=== PATIENT | male | born 1965 | race Caucasian/White ===

== ENCOUNTER 2018-07-14 18:09 | Inpatient (IN) | payer MEDICARE, OTHER ==
[~2018-07-14] VITALS: Ht 182.9 cm; Wt 156.0 kg
[2018-07-14 18:10] VITALS: BP 125/69
[2018-07-14] MEDS ORDERED: KADIAN20 M1 PO (18:16)
[2018-07-14] MEDS ORDERED: ATORVASTATIN CA80 MG ORAL (18:16)
[2018-07-14] MEDS ORDERED: ISOSORBIDE MONO20 MG PO (18:16)
[2018-07-14] MEDS ORDERED: GABAPENTIN600 MG ORAL (18:16)
[2018-07-14] MEDS ORDERED: FUROSEMIDE40 MG ORAL (18:16)
[2018-07-14] MEDS ORDERED: NORVASC5 MG ORAL (18:16)
[2018-07-14] MEDS ORDERED: KEPPRA XR500 MG ORAL (18:16)
--- NOTE | 2018-07-14 18:43 | Emergency Room Report ---
History of Present Illness General Chief Complaint: Edema Source: Patient Present Illness HPI Patient has a history of congestive heart failure coronary artery disease hypertension and morbid obesity. Patient currently stays at a [facility]. Patient states that he's post be taking large amount Lasix but for some reason it was reduced. As a result he's been getting increasingly short of breath over last couple days with significant leg swelling. He denies any dysuria or urinary frequency. Denies any fever chest pain or any other complaints. Symptoms noted to be severe.No other modifying factors. No other associated signs and symptoms. No other complaints were noted. Allergies: Coded Allergies: ASPIRIN (Verified Allergy, Unknown, 07/14/18) KETOROLAC (Verified Allergy, Unknown, 07/14/18) PENICILLINS (Verified Allergy, Unknown, 07/14/18) Patient History Past Medical History: HTN, COPD, seizures Past Surgical History: none Pertinent Family History: none Social History: Denies: smoking, alcohol use, drug use Reviewed Nursing Documentation: PMH: Agreed; PSxH: Agreed Nursing Documentation-PMH Hx Hypertension: Yes Hx COPD: Yes Hx Seizures: Yes Review of Systems All Other Systems: negative except mentioned in HPI Physical Exam Vital Signs Date Time Temp Pulse Resp B/P (MAP) Pulse Ox O2 Delivery O2 Flow Rate FiO2 07/14/18 18:04 98.4 84 18 131/78 97 Room Air Sp02 EP Interpretation: reviewed, normal General Appearance: alert, mild distress, obese Head: atraumatic Eyes: bilateral eye normal inspection ENT: normal ENT inspection, hearing grossly normal, normal voice Neck: normal inspection, full range of motion, supple, no bony tend Respiratory: lungs clear, normal breath sounds, no respiratory distress, no retraction, no wheezing Cardiovascular #1: regular rate, rhythm, edema - Bilateral lower extremity 3+ to knee Gastrointestinal: normal inspection, normal bowel sounds, non tender, soft, no guarding, no hernia Genitourinary: no CVA tenderness Musculoskeletal: normal range of motion, swelling - bilateral lower extremity Neurologic: normal inspection, alert, responsive, speech normal Psychiatric: normal inspection, judgement/insight normal, mood/affect normal Skin: normal inspection, normal color, no rash Medical Decision Making Diagnostic Impression: Primary Impression: CHF (congestive heart failure) Additional Impression: Fluid overload ER Course Patient presents emergency department today complaining of shortness of breath. Differential diagnoses include acute pneumonia, CHF, acute coronary syndrome, pneumothorax, asthma, COPD flare, just to name a few.Given the severity of the patient's presentation I felt this is a highly complex patient. This patient required extensive workup. Patient laboratory workup is consistent with acute CHF. Or dependent edema fluid overload. Patient was given Lasix with some improvement symptoms are given severity of the swelling and fluid overload felt the patient require admission further treatment. Case was discussed with Dr. Ernesto Nicole who is patient's primary care physician. Patient will be admitted to Dr. Ernesto Nicole service further treatment. Labs Test 07/14/18 18:30 07/14/18 18:35 White Blood Count 6.2 K/UL (4.8-10.8) Red Blood Count 4.23 M/UL (4.70-6.10) Hemoglobin 14.0 G/DL (14.2-18.0) Hematocrit 40.9 % (42.0-52.0) Mean Corpuscular Volume 97 FL (80-99) Mean Corpuscular Hemoglobin 33.2 PG (27.0-31.0) Mean Corpuscular Hemoglobin Concent 34.3 G/DL (32.0-36.0) Red Cell Distribution Width 11.2 % (11.6-14.8) Platelet Count 190 K/UL (150-450) Mean Platelet Volume 5.9 FL (6.5-10.1) Neutrophils (%) (Auto) 48.5 % (45.0-75.0) Lymphocytes (%) (Auto) 40.9 % (20.0-45.0) Monocytes (%) (Auto) 7.4 % (1.0-10.0) Eosinophils (%) (Auto) 2.0 % (0.0-3.0) Basophils (%) (Auto) 1.2 % (0.0-2.0) Sodium Level 137 MMOL/L (136-145) Potassium Level 4.9 MMOL/L (3.5-5.1) Chloride Level 107 MMOL/L (98-107) Carbon Dioxide Level 26 MMOL/L (21-32) Anion Gap 4 mmol/L (5-15) Blood Urea Nitrogen 14 mg/dL (7-18) Creatinine 0.9 MG/DL (0.55-1.30) Estimat Glomerular Filtration Rate > 60 mL/min (>60) Glucose Level 76 MG/DL (74-106) Calcium Level 8.3 MG/DL (8.5-10.1) Total Bilirubin 0.5 MG/DL (0.2-1.0) Aspartate Amino Transf (AST/SGOT) 38 U/L (15-37) Alanine Aminotransferase (ALT/SGPT) 24 U/L (12-78) Alkaline Phosphatase 91 U/L (46-116) Total Creatine Kinase 157 U/L (26-308) Creatine Kinase MB 0.6 NG/ML (0.0-3.6) Creatine Kinase MB Relative Index 0.3 Troponin I 0.000 ng/mL (0.000-0.056) Pro-B-Type Natriuretic Peptide 238 pg/mL (0-125) Total Protein 7.1 G/DL (6.4-8.2) Albumin 3.0 G/DL (3.4-5.0) Globulin 4.1 g/dL Albumin/Globulin Ratio 0.7 (1.0-2.7) Urine Color Pale yellow Urine Appearance Clear Urine pH 6 (4.5-8.0) Urine Specific [place] 1.010 (1.005-1.035) Urine Protein Negative (NEGATIVE) Urine Glucose (UA) Negative (NEGATIVE) Urine Ketones Negative (NEGATIVE) Urine Blood Negative (NEGATIVE) Urine Nitrite Negative (NEGATIVE) Urine Bilirubin Negative (NEGATIVE) Urine Urobilinogen Normal MG/DL (0.0-1.0) Urine Leukocyte Esterase Negative (NEGATIVE) EKG Diagnostic Results Rate: normal Rhythm: NSR ST Segments: no acute changes Rhythm Strip Diag. Results EP Interpretation: yes Rate: 69 Rhythm: NSR, no PVC's, no ectopy Chest X-Ray Diagnostic Results Chest X-Ray Diagnostic Results : Chest X-Ray Ordered: Yes # of Views/Limited/Complete: 1 View Indication: Shortness of Breath EP Interpretation: Yes Interpretation: no consolidation, no effusion, no pneumothorax, no acute cardiopulmonary disease Impression: No acute disease Electronically Signed by: Electronically signed by David Pope MD Last Vital Signs Date Time Temp Pulse Resp B/P (MAP) Pulse Ox O2 Delivery O2 Flow Rate FiO2 07/14/18 18:10 98.4 69 7 125/69 100 Room Air Status: improved Disposition: ADMITTED INPATIENT Condition: Serious David Pope MD Jul 14, 2018 18:43
[2018-07-14 18:57] LABS: BASOPHILS % (AUTO) 1.2 % (0.0-2.0); HEMATOCRIT 40.9 % (42.0-52.0); LYMPHOCYTES % (AUTO) 40.9 % (20.0-45.0); MEAN CORPUSCULAR VOLUME 97 FL (80-99); MONOCYTES % (AUTO) 7.4 % (1.0-10.0); NEUTROPHILS % (AUTO) 48.5 % (45.0-75.0); PLATELET COUNT 190 K/UL (150-450); RED BLOOD COUNT 4.23 M/UL (4.70-6.10); RED CELL DISTRIBUTION WIDTH 11.2 % (11.6-14.8); WHITE BLOOD COUNT 6.2 K/UL (4.8-10.8)
[2018-07-14] MEDS ORDERED: Morphine Sulfate 4mg/ml Inj (IV/IM USE ONLY) IVP ONE ×2 (19:00→21:15)
[2018-07-14] MEDS ORDERED: DOCUSATE SODIU100 MG ORAL (19:06)
[2018-07-14] MEDS ORDERED: ACETAMINOPHEN325 M1 ORAL (19:06)
[2018-07-14] MEDS ORDERED: FLEET ENEMA133 ML RECTAL (19:06)
[2018-07-14] MEDS ORDERED: NORCO 10-325 T1 EACH ORAL (19:06)
[2018-07-14] MEDS ORDERED: ISOSORBIDE MONO30 M1 PO (19:06)
[2018-07-14] MEDS ORDERED: MILK OF MA400 MG/51 ORAL (19:06)
[2018-07-14] MEDS ORDERED: CYMBALTA30 MG ORAL (19:06)
[2018-07-14] MEDS ORDERED: SENNA8.6 M2 PO (19:06)
[2018-07-14] MEDS ORDERED: NITROSTAT0.4 M1 SL (19:06)
[2018-07-14] MEDS ORDERED: MORPHINE SULFAT15 M1 PO (19:06)
[2018-07-14] MEDS ORDERED: DULCOLAX10 MG RC (19:06)
[2018-07-14 19:13] LABS: APPEARANCE,URINE CLEAR; BILIRUBIN, URINE NEGATIVE (NEGATIVE); COLOR,URINE PALE YELLOW; GLUCOSE, URINE (UA) NEGATIVE (NEGATIVE); KETONES,URINE NEGATIVE (NEGATIVE); LEUKOCYTE ESTERASE ,URINE NEGATIVE (NEGATIVE); NITRITE,URINE NEGATIVE (NEGATIVE); PH,URINE 6 (4.5-8.0); PROTEIN,URINE NEGATIVE (NEGATIVE); UROBILINOGEN,URINE NORMAL MG/DL (0.0-1.0)
[2018-07-14 19:16] LABS: ANION GAP 4 mmol/L (5-15); BLOOD UREA NITROGEN 14 mg/dL (7-18); CALCIUM 8.3 MG/DL (8.5-10.1); CARBON DIOXIDE 26 MMOL/L (21-32); CHLORIDE 107 MMOL/L (98-107); CREATININE 0.9 MG/DL (0.55-1.30); POTASSIUM 4.9 MMOL/L (3.5-5.1); SODIUM 137 MMOL/L (136-145)
[2018-07-14 19:32] LABS: ALANINE AMINOTRANSFERASE 24 U/L (12-78); ALBUMIN/GLOBULIN RATIO 0.7 (1.0-2.7); ALKALINE PHOSPHATASE 91 U/L (46-116); ASPARTATE AMINO TRANSFERASE 38 U/L (15-37); BILIRUBIN,TOTAL 0.5 MG/DL (0.2-1.0); CKMB 0.6 NG/ML (0.0-3.6); CREATINE KINASE 157 U/L (26-308)
[2018-07-14] MEDS ORDERED: Albuterol/Ipratropium 3ml neb HHN PRN (19:45)
[2018-07-14] MEDS ORDERED: Miralax 17gm pkt ORAL PRN (19:45)
[2018-07-14] MEDS ORDERED: Potassium Chloride 40 MEQ in Sodium Chloride 500ML 550 ML IVPB ONE (19:45)
[2018-07-14 21:50] VITALS: BP 139/78
[2018-07-14] MEDS ORDERED: Heparin 5000 units/ml inj SUBQ SCH (22:00)
[2018-07-14 22:38] VITALS: BP 122/75
[2018-07-15 00:05] VITALS: BP 128/77
[2018-07-15 04:00] VITALS: BP 150/87
[2018-07-15 08:00] VITALS: BP 144/100
--- NOTE | 2018-07-15 08:01 | Cardiology Progress Note ---
Assessment/Plan Assessment/Plan The patient is seen and examined, full consult note will be dictated. Objective Last 24 Hour Vital Signs Date Time Temp Pulse Resp B/P (MAP) Pulse Ox O2 Delivery O2 Flow Rate FiO2 07/15/18 04:00 97.2 77 18 150/87 (108) 96 07/15/18 02:30 Room Air 07/15/18 00:05 98.2 73 17 128/77 (94) 95 07/14/18 23:11 Room Air 07/14/18 22:38 98.3 69 18 122/75 (91) 95 07/14/18 22:10 97.9 69 18 139/78 100 Room Air 72 72 07/14/18 21:50 97.9 72 18 139/78 100 Room Air 72 07/14/18 18:10 98.4 69 7 125/69 100 Room Air 07/14/18 18:10 69 7 Room Air 07/14/18 18:04 98.4 84 18 131/78 97 Room Air Intake and Output 07/14/18 07/15/18 19:00 07:00 Intake Total 640 ml Output Total 2050 ml Balance -1410 ml Intake Oral 640 ml Output Urine Total 2050 ml # Voids 12 Laboratory Tests Test 07/14/18 18:30 07/14/18 18:35 White Blood Count 6.2 K/UL (4.8-10.8) Red Blood Count 4.23 M/UL (4.70-6.10) L Hemoglobin 14.0 G/DL (14.2-18.0) L Hematocrit 40.9 % (42.0-52.0) L Mean Corpuscular Volume 97 FL (80-99) Mean Corpuscular Hemoglobin 33.2 PG (27.0-31.0) H Mean Corpuscular Hemoglobin Concent 34.3 G/DL (32.0-36.0) Red Cell Distribution Width 11.2 % (11.6-14.8) L Platelet Count 190 K/UL (150-450) Mean Platelet Volume 5.9 FL (6.5-10.1) L Neutrophils (%) (Auto) 48.5 % (45.0-75.0) Lymphocytes (%) (Auto) 40.9 % (20.0-45.0) Monocytes (%) (Auto) 7.4 % (1.0-10.0) Eosinophils (%) (Auto) 2.0 % (0.0-3.0) Basophils (%) (Auto) 1.2 % (0.0-2.0) Sodium Level 137 MMOL/L (136-145) Potassium Level 4.9 MMOL/L (3.5-5.1) Chloride Level 107 MMOL/L (98-107) Carbon Dioxide Level 26 MMOL/L (21-32) Anion Gap 4 mmol/L (5-15) L Blood Urea Nitrogen 14 mg/dL (7-18) Creatinine 0.9 MG/DL (0.55-1.30) Estimat Glomerular Filtration Rate > 60 mL/min (>60) Glucose Level 76 MG/DL (74-106) Calcium Level 8.3 MG/DL (8.5-10.1) L Total Bilirubin 0.5 MG/DL (0.2-1.0) Aspartate Amino Transf (AST/SGOT) 38 U/L (15-37) H Alanine Aminotransferase (ALT/SGPT) 24 U/L (12-78) Alkaline Phosphatase 91 U/L (46-116) Total Creatine Kinase 157 U/L (26-308) Creatine Kinase MB 0.6 NG/ML (0.0-3.6) Creatine Kinase MB Relative Index 0.3 Troponin I 0.000 ng/mL (0.000-0.056) Pro-B-Type Natriuretic Peptide 238 pg/mL (0-125) H Total Protein 7.1 G/DL (6.4-8.2) Albumin 3.0 G/DL (3.4-5.0) L Globulin 4.1 g/dL Albumin/Globulin Ratio 0.7 (1.0-2.7) L Urine Color Pale yellow Urine Appearance Clear Urine pH 6 (4.5-8.0) Urine Specific [place] 1.010 (1.005-1.035) Urine Protein Negative (NEGATIVE) Urine Glucose (UA) Negative (NEGATIVE) Urine Ketones Negative (NEGATIVE) Urine Blood Negative (NEGATIVE) Urine Nitrite Negative (NEGATIVE) Urine Bilirubin Negative (NEGATIVE) Urine Urobilinogen Normal MG/DL (0.0-1.0) Urine Leukocyte Esterase Negative (NEGATIVE) Carlos Martins MD Jul 15, 2018 08:01
[2018-07-15] MEDS: Morphine Sulfate 2mg/ml Inj IVP PRN ×4 (08:32→22:10)
[2018-07-15] MEDS: DULoxetine 30mg cap ORAL SCH (08:33)
[2018-07-15] MEDS: Heparin 5000 units/ml inj SUBQ SCH ×2 (08:35→21:00)
--- NOTE | 2018-07-15 08:37 | Diagnostic Imaging Report ---
Indication: Cough Technique: One view of the chest Comparison: none Findings: Lungs and pleural spaces are clear. Heart size is normal. Impression: No acute process This agrees with the preliminary interpretation provided by the emergency room physician
[2018-07-15 09:10] LABS: BASOPHILS % (AUTO) 0.8 % (0.0-2.0); EOSINOPHILS % (AUTO) 1.7 % (0.0-3.0); HEMATOCRIT 47.5 % (42.0-52.0); LYMPHOCYTES % (AUTO) 31.5 % (20.0-45.0); MEAN CORPUSCULAR VOLUME 97 FL (80-99); MONOCYTES % (AUTO) 5.4 % (1.0-10.0); NEUTROPHILS % (AUTO) 60.5 % (45.0-75.0); PLATELET COUNT 200 K/UL (150-450); RED BLOOD COUNT 4.89 M/UL (4.70-6.10); RED CELL DISTRIBUTION WIDTH 11.4 % (11.6-14.8); WHITE BLOOD COUNT 5.9 K/UL (4.8-10.8)
[2018-07-15 10:01] LABS: ALBUMIN 3.4 G/DL (3.4-5.0); ANION GAP 5 mmol/L (5-15); BLOOD UREA NITROGEN 16 mg/dL (7-18); CALCIUM 8.9 MG/DL (8.5-10.1); CARBON DIOXIDE 29 MMOL/L (21-32); CHLORIDE 105 MMOL/L (98-107); PHOSPHORUS 3.5 MG/DL (2.5-4.9); POTASSIUM 4.1 MMOL/L (3.5-5.1); SODIUM 139 MMOL/L (136-145)
[2018-07-15 11:55] VITALS: BP 139/85
--- NOTE | 2018-07-15 13:21 | Consultation ---
History of Present Illness General Date patient seen: Jul 15, 2018 Chief Complaint: Edema Present Illness HPI 52 year old male with a history of congestive heart failure, coronary artery disease, hypertension, COPD and morbid obesity presented to ER with CC of increasingly short of breath over last couple days with significant leg swelling. He denies any dysuria or urinary frequency. Denies any fever chest pain or any other complaints. Symptoms noted to be severe.No other modifying factors. No other associated signs and symptoms. His CXR didn't show any floride edema. He is admitted for right heart failure and possible bronchitis Allergies: Coded Allergies: ASPIRIN (Verified Allergy, Unknown, 07/14/18) KETOROLAC (Verified Allergy, Unknown, 07/14/18) PENICILLINS (Verified Allergy, Unknown, 07/14/18) Medication History Scheduled Amlodipine Besylate (Norvasc), 5 MG ORAL DAILY, (Reported) Atorvastatin Calcium* (Lipitor*), 80 MG ORAL BEDTIME, (Reported) Docusate Sodium* (Docusate Sodium*), 100 MG ORAL DAILY, (Reported) Duloxetine Hcl* (Cymbalta*), 30 MG ORAL DAILY, (Reported) Furosemide* (Lasix*), 40 MG ORAL TWICE A DAY, (Reported) Gabapentin* (Gabapentin*), 600 MG ORAL THREE TIMES A DAY, (Reported) Isosorbide Mononitrate (Isosorbide Mononitrate Er), 30 MG PO DAILY, (Reported) Levetiracetam (Keppra Xr), 500 MG ORAL BID, (Reported) Morphine Sulfate (Morphine Sulfate Er), 15 MG PO DAILY, (Reported) Sennosides (Senna), 17.2 MG PO BEDTIME, (Reported) Scheduled PRN Acetaminophen* (Acetaminophen 325MG Tablet*), 650 MG ORAL Q4H PRN for Mild Pain (Pain Scale 1-3), (Reported) Acetaminophen* (Acetaminophen 325MG Tablet*), 650 MG ORAL Q4H PRN for Mild Pain/ Temp > 100.5, (Reported) Bisacodyl (Dulcolax), 10 MG RC DAILY PRN for IF MOM INEFFECTIVE, (Reported) Hydrocodone Bit/Acetaminophen 10-325* ([place] 10-325*), 1 TAB ORAL Q4H PRN for Moderate Pain (Pain Scale 4-6), (Reported) Magnesium Hydroxide* (Milk Of Magnesia*), 30 ML ORAL BEDTIME PRN for IF DOCUSATE INEFFECTIVE, (Reported) Na Phos,M-B/Na Phos,Di-Ba* (Fleet Enema*), 133 ML RECTAL QOD PRN for IF DULCOLAX INEFFECTIVE, (Reported) Nitroglycerin (Nitrostat), 0.4 MG SL Q5M X3 DOSES PRN for CHEST PAIN, (Reported) Discontinued Medications Isosorbide Mononitrate (Isosorbide Mononitrate), 30 MG PO DAILY, (Reported) Discontinued Reason: Prescription changed Morphine Sulfate (Pamela), 15 MG PO DAILY, (Reported) Discontinued Reason: Prescription changed Patient History Healthcare decision maker Resuscitation status Full Code Advanced Directive on File Yes Past Medical/Surgical History Past Medical/Surgical History: (1) COPD (chronic obstructive pulmonary disease) Review of Systems Constitutional: Reports: no symptoms Physical Exam General Appearance: WD/WN Lines, tubes and drains: peripheral HEENT: normocephalic, atraumatic Neck: non-tender, normal alignment Respiratory/Chest: chest wall non-tender, lungs clear Breasts: no masses Cardiovascular/Chest: normal peripheral pulses, normal rate Abdomen: normal bowel sounds, non tender Last 24 Hour Vital Signs Date Time Temp Pulse Resp B/P (MAP) Pulse Ox O2 Delivery O2 Flow Rate FiO2 07/15/18 11:55 98.2 77 20 139/85 (103) 94 07/15/18 09:02 97.9 07/15/18 09:00 Room Air 07/15/18 08:33 76 144/100 07/15/18 08:00 97.9 76 20 144/100 (115) 95 07/15/18 04:00 97.2 77 18 150/87 (108) 96 07/15/18 02:30 Room Air 07/15/18 00:05 98.2 73 17 128/77 (94) 95 07/14/18 23:11 Room Air 07/14/18 22:38 98.3 69 18 122/75 (91) 95 07/14/18 22:10 97.9 69 18 139/78 100 Room Air 72 72 07/14/18 21:50 97.9 72 18 139/78 100 Room Air 72 07/14/18 18:10 98.4 69 7 125/69 100 Room Air 07/14/18 18:10 69 7 Room Air 07/14/18 18:04 98.4 84 18 131/78 97 Room Air Intake and Output 07/14/18 07/15/18 19:00 07:00 Intake Total 640 ml Output Total 2050 ml Balance -1410 ml Intake Oral 640 ml Output Urine Total 2050 ml # Voids 12 Laboratory Tests Test 07/14/18 18:30 07/14/18 18:35 07/15/18 08:55 White Blood Count 6.2 K/UL (4.8-10.8) 5.9 K/UL (4.8-10.8) Red Blood Count 4.23 M/UL (4.70-6.10) L 4.89 M/UL (4.70-6.10) Hemoglobin 14.0 G/DL (14.2-18.0) L 16.0 G/DL (14.2-18.0) Hematocrit 40.9 % (42.0-52.0) L 47.5 % (42.0-52.0) Mean Corpuscular Volume 97 FL (80-99) 97 FL (80-99) Mean Corpuscular Hemoglobin 33.2 PG (27.0-31.0) H 32.7 PG (27.0-31.0) H Mean Corpuscular Hemoglobin Concent 34.3 G/DL (32.0-36.0) 33.6 G/DL (32.0-36.0) Red Cell Distribution Width 11.2 % (11.6-14.8) L 11.4 % (11.6-14.8) L Platelet Count 190 K/UL (150-450) 200 K/UL (150-450) Mean Platelet Volume 5.9 FL (6.5-10.1) L 5.9 FL (6.5-10.1) L Neutrophils (%) (Auto) 48.5 % (45.0-75.0) 60.5 % (45.0-75.0) Lymphocytes (%) (Auto) 40.9 % (20.0-45.0) 31.5 % (20.0-45.0) Monocytes (%) (Auto) 7.4 % (1.0-10.0) 5.4 % (1.0-10.0) Eosinophils (%) (Auto) 2.0 % (0.0-3.0) 1.7 % (0.0-3.0) Basophils (%) (Auto) 1.2 % (0.0-2.0) 0.8 % (0.0-2.0) Sodium Level 137 MMOL/L (136-145) 139 MMOL/L (136-145) Potassium Level 4.9 MMOL/L (3.5-5.1) 4.1 MMOL/L (3.5-5.1) Chloride Level 107 MMOL/L (98-107) 105 MMOL/L (98-107) Carbon Dioxide Level 26 MMOL/L (21-32) 29 MMOL/L (21-32) Anion Gap 4 mmol/L (5-15) L 5 mmol/L (5-15) Blood Urea Nitrogen 14 mg/dL (7-18) 16 mg/dL (7-18) Creatinine 0.9 MG/DL (0.55-1.30) 1.0 MG/DL (0.55-1.30) Estimat Glomerular Filtration Rate > 60 mL/min (>60) > 60 mL/min (>60) Glucose Level 76 MG/DL (74-106) 91 MG/DL (74-106) Calcium Level 8.3 MG/DL (8.5-10.1) L 8.9 MG/DL (8.5-10.1) Total Bilirubin 0.5 MG/DL (0.2-1.0) Aspartate Amino Transf (AST/SGOT) 38 U/L (15-37) H Alanine Aminotransferase (ALT/SGPT) 24 U/L (12-78) Alkaline Phosphatase 91 U/L (46-116) Total Creatine Kinase 157 U/L (26-308) Creatine Kinase MB 0.6 NG/ML (0.0-3.6) Creatine Kinase MB Relative Index 0.3 Troponin I 0.000 ng/mL (0.000-0.056) 0.000 ng/mL (0.000-0.056) Pro-B-Type Natriuretic Peptide 238 pg/mL (0-125) H Total Protein 7.1 G/DL (6.4-8.2) Albumin 3.0 G/DL (3.4-5.0) L 3.4 G/DL (3.4-5.0) Globulin 4.1 g/dL Albumin/Globulin Ratio 0.7 (1.0-2.7) L Urine Color Pale yellow Urine Appearance Clear Urine pH 6 (4.5-8.0) Urine Specific [place] 1.010 (1.005-1.035) Urine Protein Negative (NEGATIVE) Urine Glucose (UA) Negative (NEGATIVE) Urine Ketones Negative (NEGATIVE) Urine Blood Negative (NEGATIVE) Urine Nitrite Negative (NEGATIVE) Urine Bilirubin Negative (NEGATIVE) Urine Urobilinogen Normal MG/DL (0.0-1.0) Urine Leukocyte Esterase Negative (NEGATIVE) Phosphorus Level 3.5 MG/DL (2.5-4.9) Height (Feet): 6 Height (Inches): 0.00 Weight (Pounds): 344 Medications Current Medications Medications (Trade) Dose Ordered Sig/Luis Route PRN Reason Start Time Stop Time Status Last Admin Dose Admin Acetaminophen (Tylenol) 650 mg Q4H PRN ORAL Fever (temp>100.5F) 07/14/18 19:45 08/13/18 19:44 Albuterol/ Ipratropium (Albuterol/ Ipratropium) 3 ml Q4H PRN HHN Shortness of Breath 07/14/18 19:45 07/19/18 19:44 Albuterol/ Ipratropium (Albuterol/ Ipratropium) 3 ml Q6HRT HHN 07/15/18 19:00 07/20/18 18:59 UNV Amlodipine Besylate (Norvasc) 5 mg DAILY ORAL 07/15/18 09:00 08/14/18 08:59 07/15/18 08:33 Dextrose (Dextrose 50%) 25 ml Q30M PRN IV Hypoglycemia 07/14/18 19:45 08/13/18 19:44 Dextrose (Dextrose 50%) 50 ml Q30MIN PRN IV Hypoglycemia 07/14/18 19:45 08/13/18 19:44 Duloxetine HCl (Cymbalta) 30 mg DAILY ORAL 07/15/18 09:00 08/14/18 08:59 07/15/18 08:33 Furosemide (Lasix) 40 mg EVERY 8 HOURS IV 07/14/18 22:00 08/13/18 21:59 Gabapentin (Neurontin) 600 mg THREE TIMES A DAY ORAL 07/15/18 09:00 08/14/18 08:59 07/15/18 12:54 Heparin Sodium (Porcine) (Heparin 5000 units/ml) 5,000 units EVERY 12 HOURS SUBQ 07/15/18 09:00 08/14/18 08:59 07/15/18 08:35 Morphine Sulfate (Morphine Sulfate) 2 mg Q4H PRN IVP Severe Pain (Pain Scale 7-10) 07/15/18 08:30 07/22/18 08:29 07/15/18 12:58 Ondansetron HCl (Zofran) 4 mg Q6H PRN IVP Nausea & Vomiting 07/14/18 19:45 08/13/18 19:44 Polyethylene Glycol (Miralax) 17 gm DAILYPRN PRN ORAL Constipation 07/14/18 19:45 08/13/18 19:44 Promethazine HCl/ Codeine (Phenergan with Codeine) 5 ml Q4H PRN ORAL For Cough 07/15/18 13:15 08/14/18 13:14 UNV Temazepam (Restoril) 15 mg HSPRN PRN ORAL Insomnia 07/14/18 19:45 07/21/18 19:44 Theophylline (George-Dur) 100 mg EVERY 12 HOURS ORAL 07/15/18 21:00 08/14/18 20:59 UNV Assessment/Plan Problem List: (1) COPD (chronic obstructive pulmonary disease) ICD Codes: J44.9 - Chronic obstructive pulmonary disease, unspecified SNOMED: 13795861 (2) Right heart failure ICD Codes: I50.810 - Right heart failure, unspecified SNOMED: 496238043 (3) Peripheral edema ICD Codes: R60.9 - Edema, unspecified SNOMED: 913932212 (4) CHF (congestive heart failure) ICD Codes: I50.9 - Heart failure, unspecified SNOMED: 76872395 Assessment/Plan respiratory treatment diuretics check sputum titrate fio2 to sat of 92% dvt prophylaxis Bill Dixon MD Jul 15, 2018 13:21
[2018-07-15] MEDS ORDERED: Promethazine/Codeine 5ml UD ORAL PRN (13:30)
[2018-07-15 16:00] VITALS: BP 140/95
--- NOTE | 2018-07-15 17:38 | Cardiology Report ---
APPROVED REPORT EXAM: Two-dimensional and M-mode echocardiogram with Doppler and color Doppler. INDICATION LV FUNCTION M-Mode DIMENSIONS IVSd1.7 (0.7-1.1cm)Left Atrium (MM)3.1 (1.6-4.0cm) LVDd5.3 (3.5-5.6cm)Aortic Root4.6 (2.0-3.7cm) PWd1.1 (0.7-1.1cm)Aortic Cusp Exc.1.9 (1.5-2.0cm) IVSs1.9 cm LVDs3.9 (2.5-4.0cm) PWs1.7 cm Normal left ventricular chamber size. This study precludes analysis of LV wall motion and EF. No evidence of left ventricular hypertrophy . No evidence of pericardial effusion. All other cardiac chamber sizes are within normal limits. Thickened mitral valve leaflets with normal excursion. Mitral annulus and aortic root calcification. Pulmonic valve not well visualized. Normal tricuspid valve structure. IVC dilated at 2.5without physiologic collapse suggestive of increased RA pressure. A color flow and spectral Doppler study was performed and revealed: No aortic insufficiency. Trace mitral regurgitation. Normal left ventricular diastolic function . Mild tricuspid regurgitation. Tricuspid systolic velocities suggests peak right ventricular systolic pressure of 34 mmHg.
--- NOTE | 2018-07-15 17:53 | Cardiology Report ---
APPROVED REPORT EKG Measurement Heart [id number] Normal sinus rhythm Normal ECG
--- NOTE | 2018-07-15 18:30 | History and Physical Report ---
DATE OF ADMISSION: 07/14/2018 CONSULTANTS: 1. Bill Dixon M.D. 2. Carlos Martins M.D. CHIEF COMPLAINT: Shortness of breath, exacerbation of congestive heart failure, and edema. BRIEF HISTORY: This is a 52-year-old male from [facility] presented with the above-mentioned diagnosis and admitted to medical floor for further treatment. Currently, slight short of breath in bed. No complaint. REVIEW OF SYSTEMS: No chest pain. Slight short of breath. No nausea, vomiting, or diarrhea. PAST MEDICAL HISTORY: Includes congestive heart failure, hypertension, chronic obstructive pulmonary disease, and obesity. PAST SURGICAL HISTORY: Knee surgery. MEDICATIONS: Prednisone, George-Dur, albuterol, Phenergan, Norvasc, Cymbalta, Neurontin, morphine sulfate, and Lasix. ALLERGY: Penicillin, aspirin, and ketorolac. SOCIAL HISTORY: Positive smoking. No alcohol. No intravenous drug abuse. FAMILY HISTORY: Noncontributory. PHYSICAL EXAMINATION: GENERAL: Calm in bed, oriented x3, slight short of breath. No complaint. VITAL SIGNS: Temperature is 98 degrees, pulse 77, respirations 20, and blood pressure 139/85. CARDIOVASCULAR: No murmurs. LUNGS: Poor air exchange. ABDOMEN: Bowel sounds positive. Nontender. Nondistended. EXTREMITIES: No cyanosis or clubbing. A 1+ edema. NEUROLOGIC: The patient moves all extremities, slightly weak. LABORATORY DATA: Labs, at this time, show CBC is normal. BMP shows normal troponin 0.00. AST 38. Albumin 3.4. BNP is 238. ASSESSMENT: 1. Shortness of breath. 2. Exacerbation of congestive heart failure. 3. Edema. 4. Obesity. 5. Hypertension. 6. Chronic obstructive pulmonary disease. 7. Chronic pain. PLAN: 1. O2 and pulmonary treatment. 2. Blood pressure and pain control. 3. Dietary followup. 4. Diurese. 5. CBC and BMP in the morning. Ernesto Nicole D.O. DR: LIZBETH JOB#: [id number] CC:
[2018-07-15] MEDS: Albuterol/Ipratropium 3ml neb HHN SCH (19:00)
[2018-07-15] MEDS: Theophylline ER 100mg ORAL SCH (21:00)
[2018-07-15 22:00] VITALS: BP 168/90
[2018-07-16] MEDS: Albuterol/Ipratropium 3ml neb HHN SCH ×5 (01:00→20:02)
[2018-07-16 08:00] VITALS: BP 124/70
[2018-07-16] MEDS: Theophylline ER 100mg ORAL SCH ×2 (08:39→21:00)
[2018-07-16] MEDS: DULoxetine 30mg cap ORAL SCH (08:39)
[2018-07-16] MEDS: Morphine Sulfate 2mg/ml Inj IVP PRN ×3 (08:40→14:14)
[2018-07-16] MEDS: Heparin 5000 units/ml inj SUBQ SCH ×2 (08:41→21:00)
[2018-07-16 12:00] VITALS: BP 126/81
--- NOTE | 2018-07-16 12:08 | Pulmonology Progress Note ---
Assessment/Plan Problems: (1) COPD (chronic obstructive pulmonary disease) (2) Right heart failure (3) Peripheral edema (4) CHF (congestive heart failure) Assessment/Plan improving symptomatic treatment check electrolytes diuretics adjust cardiac meds f/u labs, check sputum continue abx dc planning soon. Subjective ROS Limited/Unobtainable: No Constitutional: Reports: no symptoms HEENT: Repors: no symptoms Respiratory: Reports: no symptoms Allergies: Coded Allergies: ASPIRIN (Verified Allergy, Unknown, 07/14/18) KETOROLAC (Verified Allergy, Unknown, 07/14/18) PENICILLINS (Verified Allergy, Unknown, 07/14/18) Objective Last 24 Hour Vital Signs Date Time Temp Pulse Resp B/P (MAP) Pulse Ox O2 Delivery O2 Flow Rate FiO2 07/16/18 09:10 98.3 07/16/18 08:39 75 124/70 07/16/18 08:25 65 16 97 Room Air 21 07/16/18 08:16 65 16 98 Room Air 21 07/16/18 08:00 98.3 75 22 124/70 (88) 96 07/16/18 02:38 Room Air 21 07/16/18 02:38 Room Air 21 07/15/18 22:00 Room Air 07/15/18 22:00 96 20 168/90 (116) 95 07/15/18 21:00 Room Air 07/15/18 20:20 Room Air 21 07/15/18 20:19 Room Air 21 07/15/18 20:17 Room Air 21 07/15/18 16:00 98.3 73 20 140/95 (110) 94 Intake and Output 07/15/18 07/16/18 19:00 07:00 Intake Total 840 ml 720 ml Balance 840 ml 720 ml Intake Oral 840 ml 720 ml # Voids 4 5 General Appearance: WD/WN HEENT: normocephalic Respiratory/Chest: chest wall non-tender, lungs clear Cardiovascular: normal peripheral pulses, normal rate Abdomen: normal bowel sounds, no organomegaly Genitourinary: normal external genitalia Extremities: no clubbing Neurologic/Psychiatric: [employer] II-XII grossly normal Current Medications Medications (Trade) Dose Ordered Sig/Luis Route PRN Reason Start Time Stop Time Status Last Admin Dose Admin Acetaminophen (Tylenol) 650 mg Q4H PRN ORAL Fever (temp>100.5F) 07/14/18 19:45 08/13/18 19:44 Albuterol/ Ipratropium (Albuterol/ Ipratropium) 3 ml Q4H PRN HHN Shortness of Breath 07/14/18 19:45 07/19/18 19:44 Albuterol/ Ipratropium (Albuterol/ Ipratropium) 3 ml Q6HRT HHN 07/15/18 19:00 07/20/18 18:59 07/16/18 08:16 Amlodipine Besylate (Norvasc) 5 mg DAILY ORAL 07/15/18 09:00 08/14/18 08:59 07/16/18 08:39 Dextrose (Dextrose 50%) 25 ml Q30M PRN IV Hypoglycemia 07/14/18 19:45 08/13/18 19:44 Dextrose (Dextrose 50%) 50 ml Q30MIN PRN IV Hypoglycemia 07/14/18 19:45 08/13/18 19:44 Duloxetine HCl (Cymbalta) 30 mg DAILY ORAL 07/15/18 09:00 08/14/18 08:59 07/16/18 08:39 Furosemide (Lasix) 40 mg EVERY 8 HOURS IV 07/14/18 22:00 08/13/18 21:59 07/15/18 14:47 Gabapentin (Neurontin) 600 mg THREE TIMES A DAY ORAL 07/15/18 09:00 08/14/18 08:59 07/16/18 08:39 Heparin Sodium (Porcine) (Heparin 5000 units/ml) 5,000 units EVERY 12 HOURS SUBQ 07/15/18 09:00 08/14/18 08:59 07/16/18 08:41 Morphine Sulfate (Morphine Sulfate) 2 mg Q4H PRN IVP Severe Pain (Pain Scale 7-10) 07/15/18 08:30 07/22/18 08:29 07/16/18 08:40 Ondansetron HCl (Zofran) 4 mg Q6H PRN IVP Nausea & Vomiting 07/14/18 19:45 08/13/18 19:44 Polyethylene Glycol (Miralax) 17 gm DAILYPRN PRN ORAL Constipation 07/14/18 19:45 08/13/18 19:44 Prednisone (predniSONE) 20 mg DAILY ORAL 07/16/18 09:00 08/15/18 08:59 07/16/18 08:39 Promethazine HCl/ Codeine (Phenergan with Codeine) 5 ml Q4H PRN ORAL For Cough 07/15/18 13:30 08/14/18 13:29 Temazepam (Restoril) 15 mg HSPRN PRN ORAL Insomnia 07/14/18 19:45 07/21/18 19:44 Theophylline (George-Dur) 100 mg EVERY 12 HOURS ORAL 07/15/18 21:00 08/14/18 20:59 07/16/18 08:39 Bill Dixon MD Jul 16, 2018 12:08
--- NOTE | 2018-07-16 14:46 | General Progress Note ---
Assessment/Plan Problem List: (1) Leg pain ICD Codes: M79.606 - Pain in leg, unspecified SNOMED: 21412828 (2) Fluid overload ICD Codes: E87.70 - Fluid overload, unspecified SNOMED: 02481946 (3) COPD (chronic obstructive pulmonary disease) ICD Codes: J44.9 - Chronic obstructive pulmonary disease, unspecified SNOMED: 35418057 (4) CHF (congestive heart failure) ICD Codes: I50.9 - Heart failure, unspecified SNOMED: 87538214 (5) Peripheral edema ICD Codes: R60.9 - Edema, unspecified SNOMED: 137767983 Status: unchanged Assessment/Plan o2 pulm tx pain control diurese pain eval cbc bmp am Subjective Allergies: Coded Allergies: ASPIRIN (Verified Allergy, Unknown, 07/14/18) KETOROLAC (Verified Allergy, Unknown, 07/14/18) PENICILLINS (Verified Allergy, Unknown, 07/14/18) All Systems: reviewed and negative except above Subjective c/o b/l leg pain Objective Last 24 Hour Vital Signs Date Time Temp Pulse Resp B/P (MAP) Pulse Ox O2 Delivery O2 Flow Rate FiO2 07/16/18 13:08 80 16 98 Room Air 21 07/16/18 12:58 80 16 98 Room Air 21 07/16/18 12:00 98.4 61 24 126/81 (96) 93 07/16/18 09:10 98.3 07/16/18 09:00 Room Air 07/16/18 08:39 75 124/70 07/16/18 08:25 65 16 97 Room Air 21 07/16/18 08:16 65 16 98 Room Air 21 07/16/18 08:00 98.3 75 22 124/70 (88) 96 07/16/18 02:38 Room Air 21 07/16/18 02:38 Room Air 21 07/15/18 22:00 Room Air 07/15/18 22:00 96 20 168/90 (116) 95 07/15/18 21:00 Room Air 07/15/18 20:20 Room Air 21 07/15/18 20:19 Room Air 21 07/15/18 20:17 Room Air 21 07/15/18 16:00 98.3 73 20 140/95 (110) 94 Intake and Output 07/15/18 07/16/18 19:00 07:00 Intake Total 840 ml 720 ml Balance 840 ml 720 ml Intake Oral 840 ml 720 ml # Voids 4 5 Height (Feet): 6 Height (Inches): 0.00 Weight (Pounds): 344 General Appearance: lethargic EENT: normal ENT inspection Neck: normal alignment Cardiovascular: normal peripheral pulses, normal rate, regular rhythm Respiratory/Chest: chest wall non-tender, lungs clear, normal breath sounds Abdomen: normal bowel sounds, non tender, soft Extremities: normal inspection Edema: 1+ Arm (L), 1+ Arm (R), 1+ Leg (L), 1+ Leg (R), 1+ Pedal (L), 1+ Pedal ( R), 1+ Generalized Edema: trace edema Neurologic: responsive, motor weakness Skin: normal pigmentation, warm/dry Ernesto Nicole DO Jul 16, 2018 14:46
[2018-07-16 16:00] VITALS: BP 146/88
[2018-07-16] MEDS: Morphine Sulfate 4mg/ml Inj (IV/IM USE ONLY) IVP PRN ×2 (18:24→23:18)
[2018-07-16 20:00] VITALS: BP 140/85
[2018-07-17] VITALS: BP 134/84
[2018-07-17] MEDS: Albuterol/Ipratropium 3ml neb HHN SCH ×4 (01:00→19:25)
[2018-07-17] MEDS: Morphine Sulfate 4mg/ml Inj (IV/IM USE ONLY) IVP PRN ×4 (03:31→20:04)
[2018-07-17 07:48] LABS: BASOPHILS % (AUTO) 0.9 % (0.0-2.0); EOSINOPHILS % (AUTO) 1.5 % (0.0-3.0); HEMATOCRIT 45.4 % (42.0-52.0); HEMOGLOBIN 15.2 G/DL (14.2-18.0); LYMPHOCYTES % (AUTO) 40.9 % (20.0-45.0); MEAN CORPUSCULAR VOLUME 96 FL (80-99); MONOCYTES % (AUTO) 7.3 % (1.0-10.0); NEUTROPHILS % (AUTO) 49.4 % (45.0-75.0); PLATELET COUNT 190 K/UL (150-450); RED BLOOD COUNT 4.72 M/UL (4.70-6.10); RED CELL DISTRIBUTION WIDTH 11.3 % (11.6-14.8); WHITE BLOOD COUNT 6.4 K/UL (4.8-10.8)
[2018-07-17 07:59] LABS: ANION GAP 6 mmol/L (5-15); BLOOD UREA NITROGEN 16 mg/dL (7-18); CALCIUM 8.5 MG/DL (8.5-10.1); CARBON DIOXIDE 28 MMOL/L (21-32); CHLORIDE 105 MMOL/L (98-107); CREATININE 1.1 MG/DL (0.55-1.30); POTASSIUM 4.3 MMOL/L (3.5-5.1); SODIUM 139 MMOL/L (136-145)
[2018-07-17 08:00] VITALS: BP 130/82
[2018-07-17] MEDS: Theophylline ER 100mg ORAL SCH ×2 (08:55→21:11)
[2018-07-17] MEDS: Heparin 5000 units/ml inj SUBQ SCH ×2 (09:02→21:11)
[2018-07-17] MEDS: DULoxetine 30mg cap ORAL SCH (09:02)
--- NOTE | 2018-07-17 09:54 | Consultation ---
History of Present Illness General Date patient seen: Jul 17, 2018 Chief Complaint: Present Illness Allergies: Coded Allergies: ASPIRIN (Verified Allergy, Unknown, 07/14/18) KETOROLAC (Verified Allergy, Unknown, 07/14/18) PENICILLINS (Verified Allergy, Unknown, 07/14/18) Medication History Scheduled Amlodipine Besylate (Norvasc), 5 MG ORAL DAILY, (Reported) Atorvastatin Calcium* (Lipitor*), 80 MG ORAL BEDTIME, (Reported) Docusate Sodium* (Docusate Sodium*), 100 MG ORAL DAILY, (Reported) Duloxetine Hcl* (Cymbalta*), 30 MG ORAL DAILY, (Reported) Furosemide* (Lasix*), 40 MG ORAL TWICE A DAY, (Reported) Gabapentin* (Gabapentin*), 600 MG ORAL THREE TIMES A DAY, (Reported) Isosorbide Mononitrate (Isosorbide Mononitrate Er), 30 MG PO DAILY, (Reported) Levetiracetam (Keppra Xr), 500 MG ORAL BID, (Reported) Morphine Sulfate (Morphine Sulfate Er), 15 MG PO DAILY, (Reported) Sennosides (Senna), 17.2 MG PO BEDTIME, (Reported) Scheduled PRN Acetaminophen* (Acetaminophen 325MG Tablet*), 650 MG ORAL Q4H PRN for Mild Pain (Pain Scale 1-3), (Reported) Acetaminophen* (Acetaminophen 325MG Tablet*), 650 MG ORAL Q4H PRN for Mild Pain/ Temp > 100.5, (Reported) Bisacodyl (Dulcolax), 10 MG RC DAILY PRN for IF MOM INEFFECTIVE, (Reported) Hydrocodone Bit/Acetaminophen 10-325* ([place] 10-325*), 1 TAB ORAL Q4H PRN for Moderate Pain (Pain Scale 4-6), (Reported) Magnesium Hydroxide* (Milk Of Magnesia*), 30 ML ORAL BEDTIME PRN for IF DOCUSATE INEFFECTIVE, (Reported) Na Phos,M-B/Na Phos,Di-Ba* (Fleet Enema*), 133 ML RECTAL QOD PRN for IF DULCOLAX INEFFECTIVE, (Reported) Nitroglycerin (Nitrostat), 0.4 MG SL Q5M X3 DOSES PRN for CHEST PAIN, (Reported) Discontinued Medications Isosorbide Mononitrate (Isosorbide Mononitrate), 30 MG PO DAILY, (Reported) Discontinued Reason: Prescription changed Morphine Sulfate (Pamela), 15 MG PO DAILY, (Reported) Discontinued Reason: Prescription changed Patient History Healthcare decision maker Resuscitation status Full Code Advanced Directive on File Yes Physical Exam Last 24 Hour Vital Signs Date Time Temp Pulse Resp B/P (MAP) Pulse Ox O2 Delivery O2 Flow Rate FiO2 07/17/18 09:01 74 130/82 07/17/18 07:46 78 18 97 Room Air 21 07/17/18 07:36 87 18 94 Room Air 21 07/17/18 04:01 97.2 07/17/18 02:00 Room Air 21 07/17/18 02:00 Room Air 21 07/17/18 00:00 97.2 75 20 134/84 (101) 97 68 07/16/18 21:00 Room Air 07/16/18 20:12 60 18 97 Room Air 21 07/16/18 20:00 98.6 77 20 140/85 (103) 96 62 07/16/18 19:59 66 18 97 Room Air 21 07/16/18 16:00 98.8 66 20 146/88 (107) 94 07/16/18 14:56 98.4 07/16/18 13:08 80 16 98 Room Air 21 07/16/18 12:58 80 16 98 Room Air 21 07/16/18 12:00 98.4 61 24 126/81 (96) 93 Intake and Output 07/16/18 07/17/18 19:00 07:00 Intake Total 1000 ml 980 ml Balance 1000 ml 980 ml Intake Oral 1000 ml 980 ml # Voids 4 3 Laboratory Tests Test 07/17/18 07:34 White Blood Count 6.4 K/UL (4.8-10.8) Red Blood Count 4.72 M/UL (4.70-6.10) Hemoglobin 15.2 G/DL (14.2-18.0) Hematocrit 45.4 % (42.0-52.0) Mean Corpuscular Volume 96 FL (80-99) Mean Corpuscular Hemoglobin 32.2 PG (27.0-31.0) H Mean Corpuscular Hemoglobin Concent 33.5 G/DL (32.0-36.0) Red Cell Distribution Width 11.3 % (11.6-14.8) L Platelet Count 190 K/UL (150-450) Mean Platelet Volume 5.7 FL (6.5-10.1) L Neutrophils (%) (Auto) 49.4 % (45.0-75.0) Lymphocytes (%) (Auto) 40.9 % (20.0-45.0) Monocytes (%) (Auto) 7.3 % (1.0-10.0) Eosinophils (%) (Auto) 1.5 % (0.0-3.0) Basophils (%) (Auto) 0.9 % (0.0-2.0) Sodium Level 139 MMOL/L (136-145) Potassium Level 4.3 MMOL/L (3.5-5.1) Chloride Level 105 MMOL/L (98-107) Carbon Dioxide Level 28 MMOL/L (21-32) Anion Gap 6 mmol/L (5-15) Blood Urea Nitrogen 16 mg/dL (7-18) Creatinine 1.1 MG/DL (0.55-1.30) Estimat Glomerular Filtration Rate > 60 mL/min (>60) Glucose Level 93 MG/DL (74-106) Calcium Level 8.5 MG/DL (8.5-10.1) Height (Feet): 6 Height (Inches): 0.00 Weight (Pounds): 344 Medications Current Medications Medications (Trade) Dose Ordered Sig/Luis Route PRN Reason Start Time Stop Time Status Last Admin Dose Admin Acetaminophen (Tylenol) 650 mg Q4H PRN ORAL Fever (temp>100.5F) 07/14/18 19:45 08/13/18 19:44 Albuterol/ Ipratropium (Albuterol/ Ipratropium) 3 ml Q4H PRN HHN Shortness of Breath 07/14/18 19:45 07/19/18 19:44 Albuterol/ Ipratropium (Albuterol/ Ipratropium) 3 ml Q6HRT HHN 07/15/18 19:00 07/20/18 18:59 07/17/18 07:36 Amlodipine Besylate (Norvasc) 5 mg DAILY ORAL 07/15/18 09:00 08/14/18 08:59 07/17/18 09:01 Dextrose (Dextrose 50%) 25 ml Q30M PRN IV Hypoglycemia 12/18/18 19:45 08/13/18 19:44 Dextrose (Dextrose 50%) 50 ml Q30MIN PRN IV Hypoglycemia 07/14/18 19:45 08/13/18 19:44 Duloxetine HCl (Cymbalta) 30 mg DAILY ORAL 07/15/18 09:00 08/14/18 08:59 07/17/18 09:02 Furosemide (Lasix) 40 mg EVERY 8 HOURS IV 07/14/18 22:00 08/13/18 21:59 07/15/18 14:47 Gabapentin (Neurontin) 600 mg THREE TIMES A DAY ORAL 07/15/18 09:00 08/14/18 08:59 07/17/18 09:02 Heparin Sodium (Porcine) (Heparin 5000 units/ml) 5,000 units EVERY 12 HOURS SUBQ 07/15/18 09:00 08/14/18 08:59 07/17/18 09:02 Morphine Sulfate (Morphine Sulfate) 4 mg Q4H PRN IVP Severe Pain (Pain Scale 7-10) 07/16/18 15:02 07/23/18 15:01 07/17/18 09:11 Ondansetron HCl (Zofran) 4 mg Q6H PRN IVP Nausea & Vomiting 07/14/18 19:45 08/13/18 19:44 Polyethylene Glycol (Miralax) 17 gm DAILYPRN PRN ORAL Constipation 07/14/18 19:45 08/13/18 19:44 Prednisone (predniSONE) 20 mg DAILY ORAL 07/16/18 09:00 08/15/18 08:59 07/17/18 09:02 Promethazine HCl/ Codeine (Phenergan with Codeine) 5 ml Q4H PRN ORAL For Cough 07/15/18 13:30 08/14/18 13:29 Temazepam (Restoril) 15 mg HSPRN PRN ORAL Insomnia 07/14/18 19:45 07/21/18 19:44 Theophylline (George-Dur) 100 mg EVERY 12 HOURS ORAL 07/15/18 21:00 08/14/18 20:59 07/17/18 08:55 Assessment/Plan Assessment/Plan (1) Lumbar DDD (2) Lumbar Spondylosis (3) Lumbar Radiculopathy (4) Morbid Obesity (5) Right knee pain (6) Right knee OA h/o ORIF seen dictated Eliezer Nicole Jul 17, 2018 09:54
[2018-07-17] MEDS ORDERED: HYDROcodone/Acetamin 10/325 tab ORAL PRN (10:00)
[2018-07-17 12:00] VITALS: BP 144/92
--- NOTE | 2018-07-17 13:58 | General Progress Note ---
Assessment/Plan Problem List: (1) Leg pain ICD Codes: M79.606 - Pain in leg, unspecified SNOMED: 11493586 (2) Fluid overload ICD Codes: E87.70 - Fluid overload, unspecified SNOMED: 63480418 (3) COPD (chronic obstructive pulmonary disease) ICD Codes: J44.9 - Chronic obstructive pulmonary disease, unspecified SNOMED: 71303526 (4) CHF (congestive heart failure) ICD Codes: I50.9 - Heart failure, unspecified SNOMED: 45825102 (5) Peripheral edema ICD Codes: R60.9 - Edema, unspecified SNOMED: 974957336 Status: stable, progressing Assessment/Plan o2 pulm tx pain control diurese pain eval cbc bmp am dc plan Subjective Constitutional: Reports: weakness Respiratory: Reports: shortness of breath Allergies: Coded Allergies: ASPIRIN (Verified Allergy, Unknown, 07/14/18) KETOROLAC (Verified Allergy, Unknown, 07/14/18) PENICILLINS (Verified Allergy, Unknown, 07/14/18) All Systems: reviewed and negative except above Subjective c/o b/l leg pain Objective Last 24 Hour Vital Signs Date Time Temp Pulse Resp B/P (MAP) Pulse Ox O2 Delivery O2 Flow Rate FiO2 07/17/18 12:48 67 18 98 Room Air 07/17/18 12:39 62 18 96 Room Air 07/17/18 09:41 97.2 07/17/18 09:01 74 130/82 07/17/18 09:00 Room Air 07/17/18 09:00 Room Air 07/17/18 09:00 Room Air 07/17/18 08:00 Room Air 07/17/18 08:00 Room Air 07/17/18 08:00 98.1 74 18 130/82 (98) 97 68 07/17/18 08:00 Room Air 07/17/18 07:46 78 18 97 Room Air 07/17/18 07:36 87 18 94 Room Air 07/17/18 02:00 Room Air 21 07/17/18 02:00 Room Air 21 07/17/18 00:00 97.2 75 20 134/84 (101) 97 68 07/16/18 21:00 Room Air 07/16/18 20:12 60 18 97 Room Air 21 12/20/18 20:00 98.6 77 20 140/85 (103) 96 62 07/16/18 19:59 66 18 97 Room Air 21 07/16/18 16:00 98.8 66 20 146/88 (107) 94 07/16/18 14:56 98.4 Intake and Output 07/16/18 07/17/18 19:00 07:00 Intake Total 1000 ml 980 ml Balance 1000 ml 980 ml Intake Oral 1000 ml 980 ml # Voids 4 3 Laboratory Tests 07/17/18 07:34: White Blood Count 6.4, Red Blood Count 4.72, Hemoglobin 15.2, Hematocrit 45.4, Mean Corpuscular Volume 96, Mean Corpuscular Hemoglobin 32.2H, Mean Corpuscular Hemoglobin Concent 33.5, Red Cell Distribution Width 11.3L, Platelet Count 190, Mean Platelet Volume 5.7L, Neutrophils (%) (Auto) 49.4, Lymphocytes (%) (Auto) 40.9, Monocytes (%) (Auto) 7.3, Eosinophils (%) (Auto) 1.5, Basophils (%) (Auto ) 0.9, Sodium Level 139, Potassium Level 4.3, Chloride Level 105, Carbon Dioxide Level 28, Anion Gap 6, Blood Urea Nitrogen 16, Creatinine 1.1, Estimat Glomerular Filtration Rate > 60, Glucose Level 93, Calcium Level 8.5 Height (Feet): 6 Height (Inches): 0.00 Weight (Pounds): 344 General Appearance: alert EENT: normal ENT inspection Neck: normal alignment Cardiovascular: normal peripheral pulses, normal rate, regular rhythm Respiratory/Chest: chest wall non-tender, lungs clear, normal breath sounds Abdomen: normal bowel sounds, non tender, soft Extremities: normal inspection Edema: 1+ Arm (L), 1+ Arm (R), 1+ Leg (L), 1+ Leg (R), 1+ Pedal (L), 1+ Pedal ( R), 1+ Generalized Edema: trace edema Neurologic: responsive, motor weakness Skin: normal pigmentation, warm/dry Ernesto Nicole DO Jul 17, 2018 13:58
[2018-07-17 16:00] VITALS: BP 143/88
--- NOTE | 2018-07-17 18:30 | Consultation ---
DATE OF CONSULTATION: 07/17/2018 PAIN MANAGEMENT CONSULTATION CONSULTING PHYSICIAN: Cece Magaña M.D. REFERRING PHYSICIAN: Ernesto Nicole D.O. PHYSICIAN PROJECT DESIGNER: AALIYAH Briones. CHIEF COMPLAINT: Low back and right lower extremity pain. HISTORY OF PRESENT ILLNESS: This is a 52-year-old male who is being seen on the Medical/Surgical floor of [facility] for initial pain management consultation. The patient was admitted under the care of Dr. Nicole due to complaints of COPD exacerbation, being seen by english language learner tutor at this time. He reports chronic pain in his lower back as well as his right knee reporting that he had fallen from a 10-story building about 10 years ago. It is a constant chronic pain, rating at 10/10, describing the pain in his back is a sharp pain shooting in his lower extremities bilaterally and increasing movement and has been relieved with medications. Also, complaining of right lower extremity pain with a history of fracture of his right knee, being multiple reconstructive surgeries, reporting that in a month, he will be going for a total knee replacement by Dr. Himanshu Cantu as an outpatient. In the nursing facility, the patient receiving morphine extended-release 15 mg b.i.d. and [place] 10/325 one tablet every 4 hours as needed for severe pain and Percocet 10/325 mg every 4 hours as needed for severe pain. However, the patient reports no pain relief with those medications. Here in the hospital, he was started on morphine 2 mg, then increased to morphine 4 mg IV every 4 hours, which has been tolerating his pain as per patient. At this time, I discussed with the patient about opioid usage with chronic conditions and possibility for dependency and intolerance, he seems to understand, trying to lose weight, and willing for the surgery of the right knee. We were consulted so patient has adequate pain control while here in the hospital. PAST MEDICAL HISTORY: COPD, CHF, and morbid obesity. PAST SURGICAL HISTORY: Right lower extremity with reconstruction and parathyroid surgery. SOCIAL HISTORY: He is a smoker of tobacco. Denies alcohol abuse or IV drug abuse. ALLERGIES: Penicillin, aspirin, and Toradol. MEDICATIONS: Morphine extended-release, Percocet, [place], Norvasc, Lipitor, docusate, Cymbalta, Lasix, Neurontin, Keppra, and senna. REVIEW OF SYSTEMS: Denies rash, fever, chills, sweating, dizziness, drowsiness, blurred vision, sore throat, change in weight. No shortness of breath or chest pain. No nausea, vomiting, diarrhea, or blood in the stool or urine. No bowel or bladder incontinence. No dysuria. He is complaining of low back pain and right lower extremity pain. PHYSICAL EXAMINATION: GENERAL: Alert, awake, and oriented x3. VITAL SIGNS: Blood pressure 134/84, heart rate 75, oxygen saturation 97%, respiratory rate 20, and temperature is 97 degrees Fahrenheit. HEENT: PERRLA. NECK: Range of motion is full in all directions. No tenderness to paracervical muscles. No adenopathy. LUNGS: Decreased breath sounds bilaterally. HEART: S1 and S2, regular. ABDOMEN: Obese. BACK: Range of motion is decreased in flexion and extension with tenderness to paraspinal muscles. No tenderness to trapezius or rhomboid muscles. EXTREMITIES: Upper extremity range of motion is full in all directions. No cyanosis. No clubbing. No edema. Sensory is intact. Reflexes are not obtainable. No adenopathy. Lower extremity range of motion is decreased due to the patient's condition with surgical scar noted at the right knee. Tenderness to palpation. No cyanosis. No clubbing. Edema noted. Sensory is reduced. Reflexes are not obtainable. No adenopathy. ASSESSMENT AND PLAN: This is a 52-year-old male with lumbar degenerative disk disease, lumbar spondylosis, lumbar radiculopathy, morbid obesity, right knee pain, osteoarthritis, and history of ORIF of the right knee. The patient will be continued on morphine IV 4 mg every 4 hours as needed for severe pain. We will start the patient on [place] 10/325 one tablet every 4 hours as needed for moderate pain. The patient was discussed with Dr. Magaña and Dr. Magaña concurred. We will follow the patient. Thank you very much for the courtesy of this consultation. Cece Magaña M.D. AALIYAH Kate DR: LISA JOB#: [id number] CC: EVONNE
[2018-07-17 20:00] VITALS: BP 138/40
[2018-07-17 21:29] VITALS: BP 138/40
[2018-07-18] VITALS: BP 159/76
[2018-07-18] MEDS: Morphine Sulfate 4mg/ml Inj (IV/IM USE ONLY) IVP PRN ×6 (00:30→21:45)
[2018-07-18] MEDS: Albuterol/Ipratropium 3ml neb HHN SCH ×4 (00:58→18:49)
[2018-07-18 04:00] VITALS: BP 149/86
[2018-07-18 07:13] LABS: BASOPHILS % (AUTO) 2.2 % (0.0-2.0); EOSINOPHILS % (AUTO) 1.3 % (0.0-3.0); HEMATOCRIT 45.5 % (42.0-52.0); HEMOGLOBIN 15.2 G/DL (14.2-18.0); LYMPHOCYTES % (AUTO) 40.4 % (20.0-45.0); MEAN CORPUSCULAR VOLUME 97 FL (80-99); MONOCYTES % (AUTO) 7.1 % (1.0-10.0); PLATELET COUNT 188 K/UL (150-450); RED BLOOD COUNT 4.68 M/UL (4.70-6.10); RED CELL DISTRIBUTION WIDTH 11.5 % (11.6-14.8); WHITE BLOOD COUNT 6.1 K/UL (4.8-10.8)
[2018-07-18 07:26] LABS: ANION GAP 11 mmol/L (5-15); BLOOD UREA NITROGEN 21 mg/dL (7-18); CALCIUM 8.9 MG/DL (8.5-10.1); CARBON DIOXIDE 24 MMOL/L (21-32); CHLORIDE 104 MMOL/L (98-107); CREATININE 1.3 MG/DL (0.55-1.30); POTASSIUM 4.5 MMOL/L (3.5-5.1); SODIUM 139 MMOL/L (136-145)
[2018-07-18 08:00] VITALS: BP 125/62
--- NOTE | 2018-07-18 08:30 | General Progress Note ---
Assessment/Plan Problem List: (1) Leg pain ICD Codes: M79.606 - Pain in leg, unspecified SNOMED: 64492452 (2) Fluid overload ICD Codes: E87.70 - Fluid overload, unspecified SNOMED: 90910468 (3) COPD (chronic obstructive pulmonary disease) ICD Codes: J44.9 - Chronic obstructive pulmonary disease, unspecified SNOMED: 00684947 (4) CHF (congestive heart failure) ICD Codes: I50.9 - Heart failure, unspecified SNOMED: 05949689 (5) Peripheral edema ICD Codes: R60.9 - Edema, unspecified SNOMED: 903403706 Status: stable, progressing Assessment/Plan o2 pulm tx pain control diurese pain eval cbc bmp am dc plan Subjective Constitutional: Reports: weakness Allergies: Coded Allergies: ASPIRIN (Verified Allergy, Unknown, 07/14/18) KETOROLAC (Verified Allergy, Unknown, 07/14/18) PENICILLINS (Verified Allergy, Unknown, 07/14/18) All Systems: reviewed and negative except above Subjective c/o b/l leg pain Objective Last 24 Hour Vital Signs Date Time Temp Pulse Resp B/P (MAP) Pulse Ox O2 Delivery O2 Flow Rate FiO2 07/18/18 08:02 Room Air 21 07/18/18 08:02 Room Air 07/18/18 04:00 97.6 58 18 149/86 (107) 96 07/18/18 01:09 70 18 100 Room Air 07/18/18 00:58 67 16 96 Room Air 07/18/18 00:00 98.2 64 20 159/76 (103) 96 07/17/18 21:00 Room Air 07/17/18 20:00 98.5 72 22 138/40 (72) 93 07/17/18 19:36 66 18 99 Room Air 21 07/17/18 19:26 64 16 97 Room Air 21 07/17/18 16:00 98.3 69 21 143/88 (106) 99 07/17/18 13:55 97.2 07/17/18 12:48 67 18 98 Room Air 21 07/17/18 12:39 62 18 96 Room Air 21 07/17/18 12:00 99.0 71 18 144/92 (109) 99 71 07/17/18 09:01 74 130/82 07/17/18 09:00 Room Air 07/17/18 09:00 Room Air 07/17/18 09:00 Room Air Intake and Output 07/17/18 07/18/18 18:59 06:59 Intake Total 480 ml 720 ml Balance 480 ml 720 ml Intake Oral 480 ml Other 720 ml # Voids 5 # Bowel Movements 1 Laboratory Tests 07/18/18 06:15: White Blood Count 6.1, Red Blood Count 4.68L, Hemoglobin 15.2, Hematocrit 45.5, Mean Corpuscular Volume 97, Mean Corpuscular Hemoglobin 32.5H, Mean Corpuscular Hemoglobin Concent 33.3, Red Cell Distribution Width 11.5L, Platelet Count 188, Mean Platelet Volume 5.2L, Neutrophils (%) (Auto) 49.0, Lymphocytes (%) (Auto) 40.4, Monocytes (%) (Auto) 7.1, Eosinophils (%) (Auto) 1.3, Basophils (%) (Auto ) 2.2H, Sodium Level 139, Potassium Level 4.5, Chloride Level 104, Carbon Dioxide Level 24, Anion Gap 11, Blood Urea Nitrogen 21H, Creatinine 1.3, Estimat Glomerular Filtration Rate 57.5, Glucose Level 93, Calcium Level 8.9 Height (Feet): 6 Height (Inches): 0.00 Weight (Pounds): 344 General Appearance: lethargic EENT: normal ENT inspection Neck: normal alignment Cardiovascular: normal peripheral pulses, normal rate, regular rhythm Respiratory/Chest: chest wall non-tender, lungs clear, normal breath sounds Abdomen: normal bowel sounds, non tender, soft Extremities: normal inspection Edema: 1+ Arm (L), 1+ Arm (R), 1+ Leg (L), 1+ Leg (R), 1+ Pedal (L), 1+ Pedal ( R), 1+ Generalized Edema: trace edema Neurologic: responsive, motor weakness Skin: normal pigmentation, warm/dry Ernesto Nicole DO Jul 18, 2018 08:30
[2018-07-18] MEDS: Theophylline ER 100mg ORAL SCH ×2 (08:43→20:13)
[2018-07-18] MEDS: DULoxetine 30mg cap ORAL SCH (08:44)
[2018-07-18] MEDS: Heparin 5000 units/ml inj SUBQ SCH ×2 (08:47→20:14)
[2018-07-18 12:00] VITALS: BP 115/95
[2018-07-18] MEDS ORDERED: NS 275ml ONE (13:19)
[2018-07-18 16:00] VITALS: BP 127/83
[2018-07-18 20:00] VITALS: BP 145/88
[2018-07-19] VITALS: BP 122/74
[2018-07-19] MEDS: Albuterol/Ipratropium 3ml neb HHN SCH ×4 (00:20→19:45)
[2018-07-19] MEDS: Morphine Sulfate 4mg/ml Inj (IV/IM USE ONLY) IVP PRN ×6 (02:13→22:33)
[2018-07-19 04:00] VITALS: BP 140/78
[2018-07-19 06:18] LABS: BASOPHILS % (AUTO) 0.8 % (0.0-2.0); EOSINOPHILS % (AUTO) 1.1 % (0.0-3.0); HEMATOCRIT 44.6 % (42.0-52.0); HEMOGLOBIN 15.3 G/DL (14.2-18.0); LYMPHOCYTES % (AUTO) 36.4 % (20.0-45.0); MEAN CORPUSCULAR VOLUME 95 FL (80-99); NEUTROPHILS % (AUTO) 54.6 % (45.0-75.0); PLATELET COUNT 188 K/UL (150-450); RED BLOOD COUNT 4.67 M/UL (4.70-6.10); RED CELL DISTRIBUTION WIDTH 11.1 % (11.6-14.8); WHITE BLOOD COUNT 6.6 K/UL (4.8-10.8)
[2018-07-19 06:41] LABS: ANION GAP 5 mmol/L (5-15); BLOOD UREA NITROGEN 26 mg/dL (7-18); CALCIUM 8.8 MG/DL (8.5-10.1); CARBON DIOXIDE 31 MMOL/L (21-32); CHLORIDE 102 MMOL/L (98-107); CREATININE 1.2 MG/DL (0.55-1.30); POTASSIUM 4.1 MMOL/L (3.5-5.1); SODIUM 138 MMOL/L (136-145)
[2018-07-19 08:00] VITALS: BP 114/65
--- NOTE | 2018-07-19 08:07 | General Progress Note ---
Assessment/Plan Problem List: (1) Leg pain ICD Codes: M79.606 - Pain in leg, unspecified SNOMED: 49334392 (2) Fluid overload ICD Codes: E87.70 - Fluid overload, unspecified SNOMED: 94569259 (3) COPD (chronic obstructive pulmonary disease) ICD Codes: J44.9 - Chronic obstructive pulmonary disease, unspecified SNOMED: 37085819 (4) CHF (congestive heart failure) ICD Codes: I50.9 - Heart failure, unspecified SNOMED: 52388109 (5) Peripheral edema ICD Codes: R60.9 - Edema, unspecified SNOMED: 280476211 Status: stable, progressing Assessment/Plan o2 pulm tx pain control diurese pain eval cbc bmp am dc plan Subjective Constitutional: Reports: weakness Allergies: Coded Allergies: ASPIRIN (Verified Allergy, Unknown, 07/14/18) KETOROLAC (Verified Allergy, Unknown, 07/14/18) PENICILLINS (Verified Allergy, Unknown, 07/14/18) All Systems: reviewed and negative except above Subjective c/o b/l leg pain Objective Last 24 Hour Vital Signs Date Time Temp Pulse Resp B/P (MAP) Pulse Ox O2 Delivery O2 Flow Rate FiO2 07/19/18 08:04 56 18 96 Room Air 07/19/18 04:00 97.7 59 19 140/78 (98) 96 07/19/18 00:30 66 20 99 Room Air 21 07/19/18 00:21 64 16 95 Room Air 21 07/19/18 00:00 97.7 68 19 122/74 (90) 94 07/18/18 21:00 Room Air 07/18/18 20:00 97.0 69 18 145/88 (107) 97 07/18/18 19:00 65 18 99 Room Air 21 07/18/18 18:50 63 20 95 Room Air 21 07/18/18 16:00 98.3 73 19 127/83 (98) 96 07/18/18 12:00 98.3 70 20 115/95 (102) 98 62 07/18/18 11:52 68 18 99 Room Air 21 07/18/18 11:44 65 18 97 Room Air 21 07/18/18 09:00 Room Air 07/18/18 08:43 62 125/62 Intake and Output 07/18/18 07/19/18 19:00 07:00 Intake Total 2700 ml 1200 ml Balance 2700 ml 1200 ml Intake Oral 2700 ml 1200 ml # Voids 5 6 Laboratory Tests 07/19/18 06:03: White Blood Count 6.6, Red Blood Count 4.67L, Hemoglobin 15.3, Hematocrit 44.6, Mean Corpuscular Volume 95, Mean Corpuscular Hemoglobin 32.9H, Mean Corpuscular Hemoglobin Concent 34.4, Red Cell Distribution Width 11.1L, Platelet Count 188, Mean Platelet Volume 5.6L, Neutrophils (%) (Auto) 54.6, Lymphocytes (%) (Auto) 36.4, Monocytes (%) (Auto) 7.0, Eosinophils (%) (Auto) 1.1, Basophils (%) (Auto ) 0.8, Sodium Level 138, Potassium Level 4.1, Chloride Level 102, Carbon Dioxide Level 31, Anion Gap 5, Blood Urea Nitrogen 26H, Creatinine 1.2, Estimat Glomerular Filtration Rate > 60, Glucose Level 87, Calcium Level 8.8 Height (Feet): 6 Height (Inches): 0.00 Weight (Pounds): 344 General Appearance: lethargic EENT: normal ENT inspection Neck: normal alignment Cardiovascular: normal peripheral pulses, normal rate, regular rhythm Respiratory/Chest: chest wall non-tender, lungs clear, normal breath sounds Abdomen: normal bowel sounds, non tender, soft Extremities: normal inspection Edema: 1+ Arm (L), 1+ Arm (R), 1+ Leg (L), 1+ Leg (R), 1+ Pedal (L), 1+ Pedal ( R), 1+ Generalized Edema: trace edema Neurologic: motor weakness Skin: normal pigmentation, warm/dry Ernesto Nicole DO Jul 19, 2018 08:07
[2018-07-19] MEDS: DULoxetine 30mg cap ORAL SCH (08:44)
[2018-07-19] MEDS: Theophylline ER 100mg ORAL SCH ×2 (08:44→20:31)
[2018-07-19] MEDS: Heparin 5000 units/ml inj SUBQ SCH ×2 (08:45→20:33)
--- NOTE | 2018-07-19 10:45 | Consultation ---
DATE OF CONSULTATION: 07/15/2018 CARDIOLOGY CONSULTATION CONSULTING PHYSICIAN: Carlos Martins M.D. REFERRING PHYSICIAN: Ernesto Nicole D.O. REASON FOR CONSULTATION: Management of shortness of breath. HISTORY OF PRESENT ILLNESS: The patient is a very unfortunate 52-year-old gentleman with history of congestive heart failure, coronary artery disease, hypertension, and morbid obesity, who is a resident at [facility], was transferred to this facility for further evaluation and management of shortness of breath as well as bilateral lower extremity edema the past few days. According to the patient, he was taking large doses of Lasix, but it was reduced recently by the primary care physician. By the time of arrival to the hospital, blood pressure was 131/78, pulse was 84. Troponin I level was 0. ProBNP showed a level of 238. Chest x-ray, which showed no acute cardiopulmonary disease. An EKG was significant for sinus rhythm at a rate of [address] and T-wave abnormalities. The patient was admitted to telemetry for further evaluation and management. ALLERGIES: Aspirin, Ketoralac, and penicillin. PAST SURGICAL HISTORY: None. MEDICAL HISTORY: Hypertension, COPD, history of seizures, history of congestive heart failure, history of coronary artery disease, and morbid obesity. SOCIAL HISTORY: No history of tobacco, alcohol, or illicit drug use. FAMILY HISTORY: No premature coronary artery disease in first-degree relatives. REVIEW OF SYSTEMS: HEENT: Denies any headache, diplopia, or blurred vision. CONSTITUTIONAL: Denies any fever, chills, night sweats, or weight loss. CARDIOVASCULAR: Denies any chest pain, has shortness of breath and bilateral lower extremity edema. Denies any PND. Denies any orthopnea. Denies any syncope. PULMONARY: Denies any cough, wheezing or hemoptysis. GASTROINTESTINAL: Denies any nausea, vomiting, diarrhea, constipation, abdominal pain, or GI bleed. GENITOURINARY: Denies any hematuria, dysuria, or incontinence. NEUROLOGIC: Denies any motor or sensory dysfunction, or altered speech. PHYSICAL EXAMINATION: VITAL SIGNS: Blood pressure is 131/78, respirations 18, pulse 84, and temperature 98.4 degrees Fahrenheit. O2 saturation 97% on room air. GENERAL: This is a very unfortunate 52-year-old gentleman, in no apparent respiratory distress. HEENT: Atraumatic and normocephalic. Anicteric. Pupils are equal, round, and reactive to light and accommodation. NECK: JVP cannot be assessed due to obesity. No carotid bruit. CARDIOVASCULAR: Normal S1, S2. Regular rate and rhythm. No murmurs, gallops, or rubs. PMI is at fourth intercostal space at the midclavicular line. LUNGS: Clear to auscultation bilaterally. ABDOMEN: Soft, nontender, and nondistended. No hepatosplenomegaly. Positive bowel sounds. EXTREMITIES: 1+ bilateral lower extremity edema. LABORATORY FINDINGS: WBC 6.2, hemoglobin 14.0, hematocrit 40.9, and platelet count 190,000. Sodium 139, potassium 4.1, chloride 105, bicarbonate 29, BUN 15, and creatinine 1.0. Glucose 91. Calcium 8.9. Troponin I 0. ProBNP 238. ASSESSMENT AND PLAN: The patient is a very unfortunate 52-year-old gentleman seen in Cardiology consultation. 1. Shortness of breath with the combination of chronic obstructive pulmonary disease and congestive heart failure. I would like to obtain 2-D echocardiography for assessment of the systolic and diastolic function. Chest x-ray does not show any evidence of congestive heart failure. The patient shows some evidence of hypervolemia with bilateral lower extremity edema. His beta-natriuretic peptide is slightly elevated. There is no evidence of ischemic features on the 12-lead electrocardiogram and troponin I x2 is negative. Further therapeutic and diagnostic decision will be based on results of 2-D echocardiography. In the meantime, we will continue with furosemide therapy. 2. History of hypertension. Continue amlodipine. 3. History of chronic obstructive pulmonary disease. 4. History of seizure disorder. 5. History of congestive heart failure. 6. History of morbid obesity. I would like to thank Dr Nicole, for allowing me to participate in the care of this patient. Carlos Martins M.D. DR: LISA JOB#: [id number] CC:
[2018-07-19 12:00] VITALS: BP 137/87
--- NOTE | 2018-07-19 13:06 | General Progress Note ---
Assessment/Plan Assessment/Plan (1) Lumbar DDD (2) Lumbar Spondylosis (3) Lumbar Radiculopathy (4) Morbid Obesity (5) Right knee pain (6) Right knee OA h/o ORIF Patient will be continued on Morphine and Ribera D/w Dr. Magaña and he concurred. Subjective Date patient seen: Jul 19, 2018 Time patient seen: 11:30 - am Allergies: Coded Allergies: ASPIRIN (Verified Allergy, Unknown, 07/14/18) KETOROLAC (Verified Allergy, Unknown, 07/14/18) PENICILLINS (Verified Allergy, Unknown, 07/14/18) Subjective REVIEW OF SYSTEMS: Denies rash, fever, chills, sweating, dizziness, drowsiness, blurred vision, sore throat, change in weight. No shortness of breath or chest pain. No nausea, vomiting, diarrhea, or blood in the stool or urine. No bowel or bladder incontinence. No dysuria. He is complaining of low back pain and right lower extremity pain. SUBJECTIVE: Patient is sitting in bed and reports that the pain has been tolerated on the Morphine and Rib[place]. He has no new complaints at this time. Objective Last 24 Hour Vital Signs Date Time Temp Pulse Resp B/P (MAP) Pulse Ox O2 Delivery O2 Flow Rate FiO2 07/19/18 12:00 97.6 70 20 137/87 (104) 97 07/19/18 09:00 Room Air 07/19/18 08:44 67 114/65 07/19/18 08:14 75 18 99 Room Air 21 07/19/18 08:04 56 18 96 Room Air 21 07/19/18 08:00 97.4 67 20 114/65 (81) 97 07/19/18 04:00 97.7 59 19 140/78 (98) 96 07/19/18 00:30 66 20 99 Room Air 21 07/19/18 00:21 64 16 95 Room Air 21 07/19/18 00:00 97.7 68 19 122/74 (90) 94 07/18/18 21:00 Room Air 07/18/18 20:00 97.0 69 18 145/88 (107) 97 07/18/18 19:00 65 18 99 Room Air 21 07/18/18 18:50 63 20 95 Room Air 21 07/18/18 16:00 98.3 73 19 127/83 (98) 96 Intake and Output 07/18/18 07/19/18 18:59 06:59 Intake Total 2700 ml 1200 ml Balance 2700 ml 1200 ml Intake Oral 2700 ml 1200 ml # Voids 5 6 Laboratory Tests 07/19/18 06:03: White Blood Count 6.6, Red Blood Count 4.67L, Hemoglobin 15.3, Hematocrit 44.6, Mean Corpuscular Volume 95, Mean Corpuscular Hemoglobin 32.9H, Mean Corpuscular Hemoglobin Concent 34.4, Red Cell Distribution Width 11.1L, Platelet Count 188, Mean Platelet Volume 5.6L, Neutrophils (%) (Auto) 54.6, Lymphocytes (%) (Auto) 36.4, Monocytes (%) (Auto) 7.0, Eosinophils (%) (Auto) 1.1, Basophils (%) (Auto ) 0.8, Sodium Level 138, Potassium Level 4.1, Chloride Level 102, Carbon Dioxide Level 31, Anion Gap 5, Blood Urea Nitrogen 26H, Creatinine 1.2, Estimat Glomerular Filtration Rate > 60, Glucose Level 87, Calcium Level 8.8 Height (Feet): 6 Height (Inches): 0.00 Weight (Pounds): 344 Objective GENERAL: Alert, awake, and oriented x3. LUNGS: Decreased breath sounds bilaterally. HEART: S1 and S2, regular. ABDOMEN: Obese. EXTREMITIES: No cyanosis. No clubbing. No edema. NEURO: No changes. Eliezer Nicole Jul 19, 2018 13:06
[2018-07-19 16:00] VITALS: BP 117/72
[2018-07-19 20:00] VITALS: BP 133/85
[2018-07-20] VITALS: BP 144/95
[2018-07-20] MEDS: Albuterol/Ipratropium 3ml neb HHN SCH ×3 (01:00→13:30)
[2018-07-20] MEDS: Morphine Sulfate 4mg/ml Inj (IV/IM USE ONLY) IVP PRN ×4 (02:50→14:59)
[2018-07-20 04:00] VITALS: BP 112/62
[2018-07-20 08:00] VITALS: BP 118/86
[2018-07-20] MEDS: Theophylline ER 100mg ORAL SCH (08:10)
[2018-07-20] MEDS: DULoxetine 30mg cap ORAL SCH (08:10)
[2018-07-20] MEDS: Heparin 5000 units/ml inj SUBQ SCH (08:15)
--- NOTE | 2018-07-20 08:28 | General Progress Note ---
Assessment/Plan Problem List: (1) Leg pain ICD Codes: M79.606 - Pain in leg, unspecified SNOMED: 04034711 (2) Fluid overload ICD Codes: E87.70 - Fluid overload, unspecified SNOMED: 52574772 (3) COPD (chronic obstructive pulmonary disease) ICD Codes: J44.9 - Chronic obstructive pulmonary disease, unspecified SNOMED: 71220329 (4) CHF (congestive heart failure) ICD Codes: I50.9 - Heart failure, unspecified SNOMED: 10982830 (5) Peripheral edema ICD Codes: R60.9 - Edema, unspecified SNOMED: 150764769 Status: stable, progressing Assessment/Plan o2 pulm tx pain control diurese pain eval cbc bmp am dc if clear Subjective Constitutional: Reports: weakness Respiratory: Reports: shortness of breath Allergies: Coded Allergies: ASPIRIN (Verified Allergy, Unknown, 07/14/18) KETOROLAC (Verified Allergy, Unknown, 07/14/18) PENICILLINS (Verified Allergy, Unknown, 07/14/18) All Systems: reviewed and negative except above Subjective c/o b/l leg pain Objective Last 24 Hour Vital Signs Date Time Temp Pulse Resp B/P (MAP) Pulse Ox O2 Delivery O2 Flow Rate FiO2 07/20/18 08:10 81 118/86 07/20/18 08:07 81 18 99 Room Air 21 07/20/18 08:02 64 18 95 Room Air 21 07/20/18 08:00 98.4 92 20 118/86 (97) 95 07/20/18 04:00 99.0 82 18 112/62 (79) 16 07/20/18 01:10 Room Air 21 07/20/18 01:10 Room Air 21 07/20/18 00:00 97.6 66 18 144/95 (111) 95 07/19/18 21:00 Room Air 07/19/18 20:00 97.4 66 18 133/85 (101) 97 07/19/18 19:55 65 20 98 Room Air 21 07/19/18 19:45 67 20 95 Room Air 21 07/19/18 16:00 97.7 73 20 117/72 (87) 95 07/19/18 13:25 77 18 96 Room Air 21 07/19/18 13:12 65 20 95 Room Air 21 07/19/18 12:00 97.6 70 20 137/87 (104) 97 07/19/18 09:00 Room Air 07/19/18 08:44 67 114/65 Intake and Output 07/19/18 07/20/18 19:00 07:00 Intake Total 1080 ml 1200 ml Balance 1080 ml 1200 ml Intake Oral 1080 ml 1200 ml # Voids 4 3 # Bowel Movements 1 Height (Feet): 6 Height (Inches): 0.00 Weight (Pounds): 344 General Appearance: alert EENT: normal ENT inspection Neck: normal alignment Cardiovascular: normal peripheral pulses, normal rate, regular rhythm Respiratory/Chest: chest wall non-tender, lungs clear, normal breath sounds Abdomen: normal bowel sounds, non tender, soft Extremities: normal inspection Edema: 1+ Arm (L), 1+ Arm (R), 1+ Leg (L), 1+ Leg (R), 1+ Pedal (L), 1+ Pedal ( R), 1+ Generalized Edema: trace edema Neurologic: responsive, motor weakness Skin: normal pigmentation, warm/dry Ernesto Nicole DO Jul 20, 2018 08:28
--- NOTE | 2018-07-20 08:48 | General Progress Note ---
Assessment/Plan Assessment/Plan (1) Lumbar DDD (2) Lumbar Spondylosis (3) Lumbar Radiculopathy (4) Morbid Obesity (5) Right knee pain (6) Right knee OA h/o ORIF Patient will be continued on Morphine and [place] D/w Dr. Magaña and he concurred. Subjective Date patient seen: Jul 20, 2018 Time patient seen: 07:00 - am Allergies: Coded Allergies: ASPIRIN (Verified Allergy, Unknown, 07/14/18) KETOROLAC (Verified Allergy, Unknown, 07/14/18) PENICILLINS (Verified Allergy, Unknown, 07/14/18) Subjective REVIEW OF SYSTEMS: Denies rash, fever, chills, sweating, dizziness, drowsiness, blurred vision, sore throat, change in weight. No shortness of breath or chest pain. No nausea, vomiting, diarrhea, or blood in the stool or urine. No bowel or bladder incontinence. No dysuria. He is complaining of low back pain and right lower extremity pain. SUBJECTIVE: Patient has been doing well and is tolerated on the morphine and [place]. He has no new complaints at this time Objective Last 24 Hour Vital Signs Date Time Temp Pulse Resp B/P (MAP) Pulse Ox O2 Delivery O2 Flow Rate FiO2 07/20/18 08:10 81 118/86 07/20/18 08:07 81 18 99 Room Air 07/20/18 08:02 64 18 95 Room Air 07/20/18 08:00 98.4 92 20 118/86 (97) 95 07/20/18 04:00 99.0 82 18 112/62 (79) 16 07/20/18 01:10 Room Air 21 07/20/18 01:10 Room Air 21 07/20/18 00:00 97.6 66 18 144/95 (111) 95 07/19/18 21:00 Room Air 07/19/18 20:00 97.4 66 18 133/85 (101) 97 07/19/18 19:55 65 20 98 Room Air 21 07/19/18 19:45 67 20 95 Room Air 21 07/19/18 16:00 97.7 73 20 117/72 (87) 95 07/19/18 13:25 77 18 96 Room Air 21 07/19/18 13:12 65 20 95 Room Air 21 07/19/18 12:00 97.6 70 20 137/87 (104) 97 07/19/18 09:00 Room Air Intake and Output 07/19/18 07/20/18 19:00 07:00 Intake Total 1080 ml 1200 ml Balance 1080 ml 1200 ml Intake Oral 1080 ml 1200 ml # Voids 4 3 # Bowel Movements 1 Height (Feet): 6 Height (Inches): 0.00 Weight (Pounds): 344 Objective GENERAL: Alert, awake, and oriented x3. LUNGS: Decreased breath sounds bilaterally. HEART: S1 and S2, regular. ABDOMEN: Obese. EXTREMITIES: No cyanosis. No clubbing. No edema. NEURO: No changes. Eliezer Nicole Jul 20, 2018 08:48
[2018-07-20 12:00] VITALS: BP 117/80
[2018-07-20] MEDS ORDERED: PROMETHAZINE-C118 M1 ORAL (13:34)
[2018-07-20] MEDS ORDERED: FUROSEMIDE40 MG ORAL (13:44)
[2018-07-20] MEDS ORDERED: DUONEB 0.5-3(2.53 ML HHN (13:47)
[2018-07-20] MEDS ORDERED: ZOFRAN4 M3 ORAL (13:48)
[2018-07-20] MEDS ORDERED: MIRALAX17 G2 ORAL (13:49)
[2018-07-20] MEDS ORDERED: PREDNISONE20 MG ORAL (13:52)
[2018-07-20] MEDS ORDERED: RESTORIL15 MG ORAL (14:08)
[2018-07-20] MEDS ORDERED: THEOPHYLLINE A100 MG ORAL (14:09)
[2018-07-21] MEDS ORDERED: CYMBALTA30 MG ORAL (17:15)
[2018-07-21] MEDS ORDERED: RESTORIL15 MG ORAL (17:15)
--- NOTE | 2018-07-21 23:45 | Progress Note ---
DATE: 07/20/2018 CARDIOLOGY PROGRESS NOTE SUBJECTIVE: Pain is controlled better, otherwise no chest pain, no shortness of breath. OBJECTIVE: VITAL SIGNS: Blood pressure 118/86, pulse 92, respirations 20, and room air oxygen saturation 95%. LUNGS: Diminished breath sounds. No rales. HEART: Regular rhythm and rate. Normal S1 and S2. No murmur. ABDOMEN: Soft. No pitting edema. IMPRESSION: 1. Venous insufficiency. 2. Chronic obstructive pulmonary disease. 3. Stable angina. 4. Chronic diastolic congestive heart failure due to hypertensive heart disease. PLAN: Outpatient followup on current medication regimen. Advised not to take too much of diuretic therapy. Made aware that leg swelling is not due to edema, but rather venous stasis and salt restriction suggested. Elliot Sanchez M.D. DR: LEONARDO JOB#: [id number] CC:
--- NOTE | 2018-07-22 | Progress Note ---
CARDIOLOGY PROGRESS NOTE DATE: 07/19/2018 SUBJECTIVE: The patient complains of leg pain. Less shortness of breath. OBJECTIVE: VITAL SIGNS: Blood pressure 140/78, pulse 69, and respirations 19. Afebrile. LUNGS: Diminished breath sounds. No rales or wheezes. HEART: Regular rhythm and rate. Normal S1, S2 with no murmur. ABDOMEN: Soft. EXTREMITIES: No pitting edema. IMPRESSION: 1. Venous insufficiency. No evidence of acute congestive heart failure. 2. Hypertensive heart disease. 3. Stable angina. 4. Prerenal azotemia worsened with diuresis. PLAN: 1. Transition to oral maintenance diuretic dose. 2. Avoid over-diuresis. 3. Consider outpatient pulmonary function studies. 4. Maintain current cardiovascular regimen otherwise without change. 5. Additional antihypertensives p.r.n. for blood pressure spikes. Elliot Sanchez M.D. DR: BARAK JOB#: [id number] CC:
--- NOTE | 2018-07-22 09:22 | Discharge Summary ---
Discharge Summary Discharge Summary _ DATE OF ADMISSION: 07/14/2018 DATE OF DISCHARGE: 07/20/2018 DISCHARGED BY: Dr. Nicole REASON FOR ADMISSION: 52 years old male with past medical history of hypertension, COPD, seizure disorder, congestive heart failure, coronary artery disease, morbid obesity, osteoarthritis, chronic back pain, presented from the [facility] facility with increased shortness of breath and leg swelling. He denied chest pain. He denied fever and chills. He denied dysuria or urinary frequency. Patient reported taking large amount of Lasix, but for some reason it was reduced. Symptoms started to worsen after dose of Lasix was reduced. Upon evaluation vital signs were stable, pulse oximetry was stable on room air. Laboratory workup revealed no leukocytosis, stable hemoglobin and hematocrit. Stable electrolytes ,renal parameters and LFT. Troponin negative. EKG revealed normal sinus rhythm , no acute ischemic changes. Pro BNP 238. Chest x-ray showed no acute cardiopulmonary pathology. Patient admitted with diagnoses of dyspnea, congestive heart failure ,COPD , peripheral edema. CONSULTANTS: Social Work Professor Dr. Martins Solder Technician Dr. Dixon Pain specialist Dr. Magaña HOSPITAL COURSE: Patient admitted to monitored floor. Echocardiogram revealed normal left ventricular chamber size. No evidence of pericardial effusion. The study precluded analysis of left ventricular wall motion and ejection fraction. Right ventricular systolic pressure of 34. Social Work Professor closely followed. Patient showed evidence of fluid overload with bilateral lower extremity edema. Pro BNP was elevated. No evidence of ischemic features on the 12-lead EKG. Troponin x2 were negative. Patient was ruled out for acute FL. Patient initially started on IV diuresis with Lasix with close monitoring of volumes and cardiorenal parameters. Blood pressure was managed with calcium channel joe and Lasix. Supplemental oxygen provided as needed to keep pulse oximetry above 92%. Antitussives provided as needed. Patient was on oral dose of prednisone. Pulmonary toilet was on standby as needed. Influenza screen was negative. Patient started on trial of theophylline. DVT prophylaxis provided. Outpatient pulmonary function test was recommended. Per butcherette, no evidence of acute congestive heart failure. Patient had evidence of venous insufficiency. Patient was transitioned to oral maintenance diuretic dose. Social Work Professor recommended to avoid over diuresis. Social Work Professor explained to patient that leg swelling was partially due to venous insufficiency and partially due to CHF. Per cardiology shortness of breath was likely due to combination of COPD and congestive heart failure with mild fluid overload. Seizure precaution maintained. No evidence of seizure activity while in the hospital. Pain management provided as per pain specialist recommendations . Supportive care provided. Bowel regimen instituted. Patient clinically stabilized and was ready for discharge back to [facility] facility for continuation of care FINAL DIAGNOSES: Shortness of breath secondary to COPD and CHF COPD CHF Peripheral edema due to mild fluid overload and venous insufficiency Venous insufficiency Hypertensive heart disease Morbid obesity Seizure disorder Lumbar degenerative disc disease Lumbar spondylosis Lumbar radiculopathy Right knee osteoarthritis DISCHARGE MEDICATIONS: See Medication Reconciliation list. DISCHARGE INSTRUCTIONS: Patient was discharged to the [facility] facility. Follow up with medical doctor at the facility. I have been assigned to dictate discharge summary for this account. I was not involved in the patient's management. Kiera Vivar NP Jul 22, 2018 09:22
== END 2018-07-20 16:10 | DRG 292 ==
LOC: EDBD 18:09 → EMR 19:00 → 3E 19:11 → EDBEDREQ 21:09 → 3E 22:30
DX: I11.0 Hypertensive heart disease with heart failure (principal); M51.06 Intervertebral disc disorders with myelopathy, lumbar region; I50.32 Chronic diastolic (congestive) heart failure; J44.9 Chronic obstructive pulmonary disease, unspecified; Z88.6 Allergy status to analgesic agent; Z88.0 Allergy status to penicillin; Z88.8 Allergy status to other drugs, medicaments and biological substances; I87.2 Venous insufficiency (chronic) (peripheral); E66.01 Morbid (severe) obesity due to excess calories; G89.29 Other chronic pain; M51.16 Intervertebral disc disorders with radiculopathy, lumbar region; M47.896 Other spondylosis, lumbar region; M17.11 Unilateral primary osteoarthritis, right knee; I25.10 Atherosclerotic heart disease of native coronary artery without angina pectoris; F17.200 Nicotine dependence, unspecified, uncomplicated; I20.8 Other forms of angina pectoris
CPT/HCPCS: 36415; 71045; 80048; 80053; 80069; 81003; 82550; 82553; 83880; 84484; 85025; 87081; 93005; 93306; 94640; 94664; 96374; 96375; 97803; 99285; J7620

== ENCOUNTER 2018-07-21 17:02 | Inpatient (IN) | payer MEDICARE, OTHER ==
[~2018-07-21] VITALS: Ht 180.3 cm; Wt 186.9 kg
[~2018-07-21 17:02] MED LIST: ACETAMINOPHEN325 M1 ORAL; ATORVASTATIN CA80 MG ORAL; CYMBALTA30 MG ORAL; DOCUSATE SODIU100 MG ORAL; DULCOLAX10 MG RC; DUONEB 0.5-3(2.53 ML HHN; FLEET ENEMA133 ML RECTAL; FUROSEMIDE40 MG ORAL; GABAPENTIN600 MG ORAL; ISOSORBIDE MONO20 MG PO; ISOSORBIDE MONO30 M1 PO; KADIAN20 M1 PO; KEPPRA XR500 MG ORAL; MILK OF MA400 MG/51 ORAL; MIRALAX17 G2 ORAL; MORPHINE SULFAT15 M1 PO; NITROSTAT0.4 M1 SL; NORCO 10-325 T1 EACH ORAL; NORVASC5 MG ORAL; PREDNISONE20 MG ORAL; PROMETHAZINE-C118 M1 ORAL; RESTORIL15 MG ORAL; SENNA8.6 M2 PO; THEOPHYLLINE A100 MG ORAL; ZOFRAN4 M3 ORAL
--- NOTE | 2018-07-21 17:04 | NUR ---
ED Nurse Note: Pt. AAOx4. ambulatory. Pt. brought in by ambulance from [facility] due to CP X 2 hours ago radiating to the L shoulder. Per EMS, 2 sprays of Nitro were given to the pt. prior to ER arrival.
[2018-07-21] MEDS ORDERED: Morphine Sulfate 4mg/ml Inj (IV/IM USE ONLY) IVP ONE (17:15)
[2018-07-21] MEDS ORDERED: CYMBALTA30 MG ORAL (17:15)
[2018-07-21] MEDS ORDERED: Solu-MEDROL 125mg Inj IVP ONE (17:15)
[2018-07-21] MEDS ORDERED: RESTORIL15 MG ORAL (17:15)
[2018-07-21] MEDS: Albuterol ud Inhalation HHN SCH ×2 (17:24→17:30)
[2018-07-21] MEDS: Ipratropium 0.02% Inh Soln 2.5ml UD HHN SCH ×2 (17:24→17:30)
--- NOTE | 2018-07-21 17:48 | NUR ---
ED Nurse Note: Called lab to draw labs. Per Sven, he will come down
[2018-07-21 17:53] VITALS: BP 108/55
--- NOTE | 2018-07-21 18:11 | NUR ---
ED Nurse Note: Sven (labeling machine operator) at the bedside to draw labs
--- NOTE | 2018-07-21 18:51 | Emergency Room Report ---
History of Present Illness General Chief Complaint: Chest Pain Source: Medical Record Present Illness HPI 52-year-old male presents ED for evaluation. Coming from snf facility with chest pain. Started about 2 hours prior to arrival. Sudden onset. Pressure, 7 out of 10, nonradiating. Given nitroglycerin 2 with some chest pain improvement. Also notes shortness of breath. Notes history of COPD and CHF. States that his facility does not have his Lasix or albuterol. Denies fevers chills. Denies cough. No other aggravating relieving factors. Denies any other associated symptoms Allergies: Coded Allergies: ASPIRIN (Verified Allergy, Unknown, 07/14/18) KETOROLAC (Verified Allergy, Unknown, 07/14/18) PENICILLINS (Verified Allergy, Unknown, 07/14/18) Patient History Past Medical History: HTN, MS, CHF, COPD, seizures, psych hx Past Surgical History: none Pertinent Family History: none Social History: Denies: smoking, alcohol use, drug use Immunizations: UTD Reviewed Nursing Documentation: PMH: Agreed; PSxH: Agreed Nursing Documentation-PMH Hx Cardiac Problems: Yes - MS, heart failure Hx Hypertension: Yes Hx COPD: Yes Hx Cancer: No Hx Gastrointestinal Problems: Yes History Of Psychiatric Problem: Yes - Major depression, anxiety Hx Neurological Problems: Yes Hx Seizures: Yes Review of Systems All Other Systems: negative except mentioned in HPI Physical Exam Vital Signs Date Time Temp Pulse Resp B/P (MAP) Pulse Ox O2 Delivery O2 Flow Rate FiO2 07/21/18 17:04 99.1 80 18 153/87 92 Room Air 07/21/18 17:21 21 Sp02 EP Interpretation: reviewed, normal General Appearance: no apparent distress, alert, GCS 15, non-toxic, obese Head: normocephalic Eyes: bilateral eye normal inspection, bilateral eye PERRL ENT: normal ENT inspection Neck: normal inspection Respiratory: crackles, wheezing Cardiovascular #1: regular rate, rhythm, no edema Gastrointestinal: normal bowel sounds, non tender, soft, non-distended, no guarding, no rebound Rectal: deferred Genitourinary: no CVA tenderness Musculoskeletal: normal inspection Neurologic: alert, oriented x3, responsive, motor strength/tone normal, sensory intact, speech normal Psychiatric: normal inspection Skin: normal inspection Lymphatic: normal inspection Medical Decision Making Diagnostic Impression: Primary Impression: COPD (chronic obstructive pulmonary disease) Qualified Codes: J44.9 - Chronic obstructive pulmonary disease, unspecified Additional Impressions: CHF (congestive heart failure) Qualified Codes: I50.9 - Heart failure, unspecified ACS (acute coronary syndrome) ER Course Hospital Course 52-year-old male presents ED complaining of shortness of breath, chest pain Differential diagnoses include: MS/unstable angina, contusion, muscle strain, PTX, rib fracture Clinical course Patient placed on stretcher. on clinical research monitor. After initial history and physical I ordered labs, EKG, chest x-ray, morphine, nebs labs reviewed- no leukocytosis, hemoglobin/hematocrit stable, electrolytes ok, trop x1 negative EKG - NSR, no acute ischemic changes inteprreted by me Chest x-ray- hyperinflated lugns, pulmonary congestion Lasix given. Case discussed with Dr. Nicole and he agreed to accept the patient to his service for further care and support I. I feel this is a highly complex case requiring extensive working including EKG/Rhythm strip, Xray/CT/US, Blood/urine lab work, repeat exams while in ED, and administration of strong opiates/narcotics for pain control, admission to hospital or close patient follow up. Diagnosis - CHF, COPD, ACS admitted to telemetry in serious condition Labs Test 07/21/18 18:20 White Blood Count 11.2 K/UL (4.8-10.8) Red Blood Count 5.00 M/UL (4.70-6.10) Hemoglobin 16.6 G/DL (14.2-18.0) Hematocrit 49.1 % (42.0-52.0) Mean Corpuscular Volume 98 FL (80-99) Mean Corpuscular Hemoglobin 33.2 PG (27.0-31.0) Mean Corpuscular Hemoglobin Concent 33.8 G/DL (32.0-36.0) Red Cell Distribution Width 12.2 % (11.6-14.8) Platelet Count 214 K/UL (150-450) Mean Platelet Volume 5.9 FL (6.5-10.1) Neutrophils (%) (Auto) 62.7 % (45.0-75.0) Lymphocytes (%) (Auto) 29.3 % (20.0-45.0) Monocytes (%) (Auto) 6.5 % (1.0-10.0) Eosinophils (%) (Auto) 0.7 % (0.0-3.0) Basophils (%) (Auto) 0.9 % (0.0-2.0) Sodium Level 140 MMOL/L (136-145) Potassium Level 4.3 MMOL/L (3.5-5.1) Chloride Level 103 MMOL/L (98-107) Carbon Dioxide Level 27 MMOL/L (21-32) Anion Gap 10 mmol/L (5-15) Blood Urea Nitrogen 33 mg/dL (7-18) Creatinine 1.4 MG/DL (0.55-1.30) Estimat Glomerular Filtration Rate 52.8 mL/min (>60) Glucose Level 92 MG/DL (74-106) Lactic Acid Level 1.40 mmol/L (0.4-2.0) Calcium Level 9.4 MG/DL (8.5-10.1) Total Bilirubin 1.0 MG/DL (0.2-1.0) Aspartate Amino Transf (AST/SGOT) 32 U/L (15-37) Alanine Aminotransferase (ALT/SGPT) 36 U/L (12-78) Alkaline Phosphatase 105 U/L (46-116) Total Creatine Kinase 277 U/L (26-308) Creatine Kinase MB 1.2 NG/ML (0.0-3.6) Creatine Kinase MB Relative Index 0.4 Troponin I 0.000 ng/mL (0.000-0.056) Pro-B-Type Natriuretic Peptide 74 pg/mL (0-125) Total Protein 7.6 G/DL (6.4-8.2) Albumin 3.8 G/DL (3.4-5.0) Globulin 3.8 g/dL Albumin/Globulin Ratio 1.0 (1.0-2.7) EKG Diagnostic Results Rate: normal Rhythm: NSR ST Segments: no acute changes ASA given to the pt in ED: No - allergic to ASA Rhythm Strip Diag. Results EP Interpretation: yes Rhythm: NSR, no PVC's, no ectopy Chest X-Ray Diagnostic Results Chest X-Ray Diagnostic Results : Chest X-Ray Ordered: Yes # of Views/Limited/Complete: 1 View Indication: Shortness of Breath EP Interpretation: Yes Interpretation: no consolidation, no pneumothorax, other - atelectasis lower lung bonilla Impression: Other Electronically Signed by: Electronically signed by Jose Mason MD Last Vital Signs Date Time Temp Pulse Resp B/P (MAP) Pulse Ox O2 Delivery O2 Flow Rate FiO2 07/21/18 17:53 99.1 74 20 108/55 100 Room Air 07/21/18 17:40 21 Status: improved Disposition: ADMITTED INPATIENT Condition: Serious Referrals: Ernesto Nicole DO (PCP) Jose Mason MD Jul 21, 2018 18:51
[2018-07-21 18:56] LABS: BASOPHILS % (AUTO) 0.9 % (0.0-2.0); EOSINOPHILS % (AUTO) 0.7 % (0.0-3.0); HEMATOCRIT 49.1 % (42.0-52.0); HEMOGLOBIN 16.6 G/DL (14.2-18.0); LYMPHOCYTES % (AUTO) 29.3 % (20.0-45.0); MEAN CORPUSCULAR VOLUME 98 FL (80-99); MONOCYTES % (AUTO) 6.5 % (1.0-10.0); NEUTROPHILS % (AUTO) 62.7 % (45.0-75.0); PLATELET COUNT 214 K/UL (150-450); RED CELL DISTRIBUTION WIDTH 12.2 % (11.6-14.8); WHITE BLOOD COUNT 11.2 K/UL (4.8-10.8)
[2018-07-21 18:59] LABS: ANION GAP 10 mmol/L (5-15); BLOOD UREA NITROGEN 33 mg/dL (7-18); CALCIUM 9.4 MG/DL (8.5-10.1); CARBON DIOXIDE 27 MMOL/L (21-32); CHLORIDE 103 MMOL/L (98-107); CREATININE 1.4 MG/DL (0.55-1.30); POTASSIUM 4.3 MMOL/L (3.5-5.1); SODIUM 140 MMOL/L (136-145)
--- NOTE | 2018-07-21 19:09 | NUR ---
HAND-OFF: Report given to MICAELA Gonzalez.
[2018-07-21 19:31] LABS: ALANINE AMINOTRANSFERASE 36 U/L (12-78); ALBUMIN 3.8 G/DL (3.4-5.0); ALKALINE PHOSPHATASE 105 U/L (46-116); ASPARTATE AMINO TRANSFERASE 32 U/L (15-37); CKMB 1.2 NG/ML (0.0-3.6); CREATINE KINASE 277 U/L (26-308)
[2018-07-21 19:49] LABS: APPEARANCE,URINE CLEAR; BILIRUBIN, URINE NEGATIVE (NEGATIVE); GLUCOSE, URINE (UA) NEGATIVE (NEGATIVE); KETONES,URINE NEGATIVE (NEGATIVE); LEUKOCYTE ESTERASE ,URINE 1+ (NEGATIVE); NITRITE,URINE NEGATIVE (NEGATIVE); PH,URINE 5 (4.5-8.0); PROTEIN,URINE NEGATIVE (NEGATIVE); UROBILINOGEN,URINE 1 MG/DL (0.0-1.0)
[2018-07-21 19:51] LABS: COLOR,URINE YELLOW
[2018-07-21 19:55] VITALS: BP 112/68
[2018-07-21 20:30] VITALS: BP 130/86
--- NOTE | 2018-07-21 20:30 | NUR ---
NURSE NOTES: Received report from TIMI Gonzalez RN. Pt transferred from ED to tele via gurney. Pt ambulated with assist from gurney to bed; tolerated well. Pt in AO4 in bed with no signs of acute distress. VSS. IV flushed and patent. Bed at lowest position; side rails raised x3; bed alarm on; call light within reach. Attached to traffic monitor specialist. Oriented to room and unit. Belongings list completed with transferring RN.
--- NOTE | 2018-07-21 20:30 | NUR ---
ER Nurse Note: Pt transfered to tele, report given to Thomas Sprague RN. Pt status, vital signs, reported to MD and receiving RN prior to transfer. vital signs are stable. pt is alert and orinted times 4. no skin issues noted in ED. All belongings taken. Will endorse to oncoming nurse for continuty of care.
--- NOTE | 2018-07-21 20:34 | NUR ---
NURSE NOTES: Left message for MD Destiny for admitting orders. Currently out of town. No orders received. Left message for MD Corey for admitting orders; awaiting callback.
--- NOTE | 2018-07-21 21:49 | NUR ---
NURSE NOTES: Left message for MD Corey for admitting orders; awaiting callback.
[2018-07-21] MEDS ORDERED: Morphine Sulfate 4mg/ml Inj (IV/IM USE ONLY) IVP PRN (22:30)
[2018-07-21] MEDS ORDERED: Albuterol ud Inhalation HHN PRN (22:30)
--- NOTE | 2018-07-21 22:30 | NUR ---
NURSE NOTES: Notified rn hemodialysis charge and [employer] that no admitting orders were received. Received bridging orders from HALINA Leonardo; noted and carried out.
--- NOTE | 2018-07-21 23:45 | Consultation ---
DATE OF CONSULTATION: 07/21/2018 CARDIOLOGY CONSULTATION CONSULTING PHYSICIAN: Elliot Sanchez M.D. REQUESTING PHYSICIAN: Ernesto Nicole D.O. REASON FOR CONSULTATION: Management of congestive heart failure. HISTORY OF PRESENT ILLNESS: This 52-year-old male, residing at a longterm facility. He was admitted to the hospital several days ago with shortness of breath and bilateral lower extremity swelling. He was taking high diuretic doses recent that were decreased several days prior to admission and complaints of shortness of breath occurred thereafter. Upon admission, a pro-natriuretic peptide was 238. The chest x-ray revealed no acute process and an EKG revealed sinus rhythm at [address] abnormalities. The patient was started on diuretic therapy. He had an echocardiogram performed on July 15, 2018 that revealed normal ejection fraction, mild tricuspid regurgitation, and normal pulmonary artery pressure estimated at 34 mmHg. ALLERGIES: Include aspirin, penicillin, and ketorolac. PAST MEDICAL HISTORY: Includes hypertension, COPD, seizure disorder, coronary artery disease, and obesity. SOCIAL HISTORY: Negative for smoking, alcohol, or substance abuse. FAMILY HISTORY: Noncontributory. REVIEW OF SYSTEMS: Reveals no history of bleeding or blood clotting problems. No recent steroid use. No history of irregular heartbeats. No change in bowel habits and no history of prostate cancer. No known history of diabetes or thyroid impairment. PHYSICAL EXAMINATION: VITAL SIGNS: Blood pressure 149/86, pulse 58, respiratory rate 18, and afebrile. NECK: Jugular venous pressure difficult to assess due to obesity. LUNGS: Diminished breath sounds. No rales. CARDIAC: Regular rhythm and rate. Distant S1 and S2 with no appreciable murmur. ABDOMEN: Soft. EXTREMITIES: 1+ nonpitting edema. LABORATORY DATA: White count 6.1 and hemoglobin 15.2. Potassium 4.5, BUN 21, and creatinine 1.3. IMPRESSION: 1. Diastolic dysfunction. 2. Hypertensive heart disease. 3. No evidence of acute congestive heart failure. 4. Prerenal azotemia, post diuresis. PLAN: 1. Consider pulmonary function studies. 2. Maintenance diuretic dosing. 3. Continue current antihypertensive regimen with titration based on clinical parameters. Elliot Sanchez M.D. DR: TYSON JOB#: [id number] CC: EVONNE
[2018-07-22] VITALS: BP 123/69
--- NOTE | 2018-07-22 02:25 | NUR ---
NURSE NOTES: Left message for MD Corey for admitting orders; awaiting callback. Emmett, embedded hardware engineer and Farhan, Nursing Manager Ship made aware.
--- NOTE | 2018-07-22 07:12 | NUR ---
NURSE NOTES: Received report from Thomas Sprague RN. Patient is asleep in bed. No signs and symptoms of acute distress noted. Sinus rhythm on electronic device monitor. Saturating well on room air. Right upper arm 24g IV saline lock, patent and intact. Bed locked in lowest position with side rails up x2. Call light left within reach. Awaiting admission orders from MD. Will continue to monitor.
--- NOTE | 2018-07-22 07:17 | NUR ---
NURSE NOTES: Dr. Corey MD contacted for orders. Awaiting response.
--- NOTE | 2018-07-22 07:33 | NUR ---
HAND-OFF: Report given to MICAELA Newman. Patient in stable condition. Plan of care endorsed.
[2018-07-22 08:00] VITALS: BP 137/73
--- NOTE | 2018-07-22 09:11 | General Progress Note ---
Assessment/Plan Assessment/Plan (1) Lumbar DDD (2) Lumbar Spondylosis (3) Lumbar Radiculopathy (4) Morbid Obesity (5) Right knee pain (6) Right knee OA h/o ORIF Patient will be continued on Morphine and Cimarron D/w Dr. Magaña and he concurred. Subjective Date patient seen: Jul 22, 2018 Time patient seen: 08:45 - am Allergies: Coded Allergies: ASPIRIN (Verified Allergy, Unknown, 07/14/18) KETOROLAC (Verified Allergy, Unknown, 07/14/18) PENICILLINS (Verified Allergy, Unknown, 07/14/18) Subjective REVIEW OF SYSTEMS: Denies rash, fever, chills, sweating, dizziness, drowsiness, blurred vision, sore throat, change in weight. No shortness of breath or chest pain. No nausea, vomiting, diarrhea, or blood in the stool or urine. No bowel or bladder incontinence. No dysuria. He is complaining of low back pain and right lower extremity pain. SUBJECTIVE: Patient is a known patient from prior admission and has been admitted under the care of Dr. Nicole. He continues to c/o back and lower extremity pain. We were consulted so patient has adequate pain control while here in the hospital. We will start the patient on Morphine 4mg IV Q4H PRN severe pain and Cimarron 10/325mg PO 1 tab Q6H PRN moderate pain. Objective Last 24 Hour Vital Signs Date Time Temp Pulse Resp B/P (MAP) Pulse Ox O2 Delivery O2 Flow Rate FiO2 07/22/18 04:00 75 07/22/18 00:00 97.5 72 20 123/69 (87) 96 07/22/18 00:00 72 07/21/18 23:37 70 18 99 Room Air 21 07/21/18 23:33 98.9 07/21/18 23:28 71 18 95 Room Air 21 07/21/18 22:34 Room Air 07/21/18 20:30 98.9 82 18 112/58 100 Room Air 07/21/18 20:30 98.2 74 20 130/86 (101) 96 07/21/18 19:55 98.9 82 18 112/68 100 Room Air 07/21/18 17:53 99.1 74 20 108/55 100 Room Air 07/21/18 17:53 74 20 Room Air 07/21/18 17:40 86 22 100 Room Air 21 07/21/18 17:21 87 22 97 Room Air 21 07/21/18 17:21 87 22 Room Air 21 07/21/18 17:04 99.1 80 18 153/87 92 Room Air Intake and Output 07/21/18 07/22/18 19:00 07:00 Output Total 0 ml 0 ml Balance 0 ml 0 ml Output Urine Total 0 ml 0 ml # Bowel Movements 1 Laboratory Tests 07/21/18 18:20: White Blood Count 11.2H, Red Blood Count 5.00, Hemoglobin 16.6, Hematocrit 49.1 , Mean Corpuscular Volume 98, Mean Corpuscular Hemoglobin 33.2H, Mean Corpuscular Hemoglobin Concent 33.8, Red Cell Distribution Width 12.2, Platelet Count 214, Mean Platelet Volume 5.9L, Neutrophils (%) (Auto) 62.7, Lymphocytes ( %) (Auto) 29.3, Monocytes (%) (Auto) 6.5, Eosinophils (%) (Auto) 0.7, Basophils (%) (Auto) 0.9, Sodium Level 140, Potassium Level 4.3, Chloride Level 103, Carbon Dioxide Level 27, Anion Gap 10, Blood Urea Nitrogen 33H, Creatinine 1.4H , Estimat Glomerular Filtration Rate 52.8, Glucose Level 92, Lactic Acid Level 1.40, Calcium Level 9.4, Total Bilirubin 1.0, Aspartate Amino Transf (AST/SGOT) 32, Alanine Aminotransferase (ALT/SGPT) 36, Alkaline Phosphatase 105, Total Creatine Kinase 277, Creatine Kinase MB 1.2, Creatine Kinase MB Relative Index 0.4, Troponin I 0.000, Pro-B-Type Natriuretic Peptide 74, Total Protein 7.6, Albumin 3.8, Globulin 3.8, Albumin/Globulin Ratio 1.0 07/21/18 19:30: Urine Color Yellow, Urine Appearance Clear, Urine pH 5, Urine Specific [place] 1.015, Urine Protein Negative, Urine Glucose (UA) Negative, Urine Ketones Negative, Urine Blood 1+H, Urine Nitrite Negative, Urine Bilirubin Negative, Urine Urobilinogen 1H, Urine Leukocyte Esterase 1+H, Urine RBC 0-2H, Urine WBC 0 -2, Urine Squamous Epithelial Cells Occasional, Urine Bacteria Occasional Height (Feet): 5 Height (Inches): 11.00 Weight (Pounds): 415 Objective GENERAL: Alert, awake, and oriented x3. LUNGS: Decreased breath sounds bilaterally. HEART: S1 and S2, regular. ABDOMEN: Obese. EXTREMITIES: No cyanosis. No clubbing. No edema. NEURO: No Focal deficits. Eliezer Nicole Jul 22, 2018 09:11
[2018-07-22] MEDS ORDERED: HYDROcodone/Acetamin 10/325 tab ORAL PRN (09:15)
[2018-07-22] MEDS: Morphine Sulfate 4mg/ml Inj (IV/IM USE ONLY) IVP PRN ×3 (10:22→22:00)
--- NOTE | 2018-07-22 11:37 | NUR ---
CASE MANAGEMENT:REVIEW 52 YR OLD MALE BIBA FROM [facility]; CHEST PAIN PMH: ALLERGIC TO ASA SI: ACS. COPD. CHF 99.1 80 18 153/87 92% ON RA WBC+11.2 BUN+33 CR+1.4 IS: DUONEB HHN IV SOLUMEDROL IV MORPHINE CXR BLOOD CX : TO TELEMETRY
--- NOTE | 2018-07-22 11:40 | Diagnostic Imaging Report ---
Indication: Chest pain Technique: XRAY Chest 1v Comparison: 07/14/2018 Findings: Heart size and mediastinal contours within normal for AP technique and stable compared to the prior exam. There is no definite focal airspace consolidation. No pleural effusion or pneumothorax. No acute osseous normality. Impression: No radiographic evidence of acute cardiopulmonary disease or significant interval change compared to the prior exam.
--- NOTE | 2018-07-22 11:43 | NUR ---
INTERQUAL CRITERIA MET FOR OBSERVATION
[2018-07-22 12:00] VITALS: BP 134/76
[2018-07-22 16:00] VITALS: BP 111/73
--- NOTE | 2018-07-22 16:06 | Pulmonology Progress Note ---
Assessment/Plan Assessment/Plan Pulmonary Consultation [facility] 52-year-old male presents ED for evaluation. Coming from care home facility with chest pain. Started about 2 hours prior to arrival. Sudden onset. Pressure, 7 out of 10, nonradiating. Given nitroglycerin 2 with some chest pain improvement. Also notes shortness of breath. Notes history of COPD and CHF. States that his facility does not have his Lasix or albuterol. Denies fevers chills. Denies cough. No other aggravating relieving factors. Denies any other associated symptoms Allergies: ASPIRIN (Verified Allergy, Unknown, 07/14/18) KETOROLAC (Verified Allergy, Unknown, 07/14/18) PENICILLINS (Verified Allergy, Unknown, 07/14/18) Patient History Past Medical History: HTN, DC, CHF, COPD, ADALBERTO, Obesity, seizures, psych hx Past Surgical History: none Pertinent Family History: none Social History: Denies: smoking, alcohol use, drug use Immunizations: UTD Reviewed Nursing Documentation: PMH: Agreed; PSxH: Agreed Review of Systems All Other Systems: negative except mentioned in HPI Physical Exam Vital Signs Noted Date Time Temp Pulse Resp B/P (MAP) Pulse Ox O2 Delivery O2 Flow Rate FiO2 07/21/18 17:04 99.1 80 18 153/87 92 Room Air 07/21/18 17:21 21 General Appearance: no apparent distress, alert, GCS 15, non-toxic, obese Head: normocephalic Eyes: bilateral eye normal inspection, bilateral eye PERRL ENT: normal ENT inspection Neck: normal inspection Respiratory: crackles, wheezing Cardiovascular #1: regular rate, rhythm, no edema Gastrointestinal: normal bowel sounds, non tender, soft, non-distended, no guarding, no rebound Rectal: deferred Genitourinary: no CVA tenderness Musculoskeletal: normal inspection Neurologic: alert, oriented x3, responsive, motor strength/tone normal, sensory intact, speech normal Psychiatric: normal inspection Skin: normal inspection Lymphatic: normal inspection Impression: Chest Pain Chronic obstructive pulmonary disease with exaccerbation Congestive heart failure For r/o ACS HTN CAD, previous DC ADALBERTO Obesity Previous Seizures Depression/Anxiety Plan - Monitored bed - Labs - R/o ACS - HHN - IV Solumedrol - O2 for O2 sats 90-96% - BiPAP 12/7 QHS/PRN - Doxycycline 100mg PO bid - Lasix PRN Labs Test 07/21/18 18:20 White Blood Count 11.2 K/UL (4.8-10.8) Red Blood Count 5.00 M/UL (4.70-6.10) Hemoglobin 16.6 G/DL (14.2-18.0) Hematocrit 49.1 % (42.0-52.0) Mean Corpuscular Volume 98 FL (80-99) Mean Corpuscular Hemoglobin 33.2 PG (27.0-31.0) Mean Corpuscular Hemoglobin Concent 33.8 G/DL (32.0-36.0) Red Cell Distribution Width 12.2 % (11.6-14.8) Platelet Count 214 K/UL (150-450) Mean Platelet Volume 5.9 FL (6.5-10.1) Neutrophils (%) (Auto) 62.7 % (45.0-75.0) Lymphocytes (%) (Auto) 29.3 % (20.0-45.0) Monocytes (%) (Auto) 6.5 % (1.0-10.0) Eosinophils (%) (Auto) 0.7 % (0.0-3.0) Basophils (%) (Auto) 0.9 % (0.0-2.0) Sodium Level 140 MMOL/L (136-145) Potassium Level 4.3 MMOL/L (3.5-5.1) Chloride Level 103 MMOL/L (98-107) Carbon Dioxide Level 27 MMOL/L (21-32) Anion Gap 10 mmol/L (5-15) Blood Urea Nitrogen 33 mg/dL (7-18) Creatinine 1.4 MG/DL (0.55-1.30) Estimat Glomerular Filtration Rate 52.8 mL/min (>60) Glucose Level 92 MG/DL (74-106) Lactic Acid Level 1.40 mmol/L (0.4-2.0) Calcium Level 9.4 MG/DL (8.5-10.1) Total Bilirubin 1.0 MG/DL (0.2-1.0) Aspartate Amino Transf (AST/SGOT) 32 U/L (15-37) Alanine Aminotransferase (ALT/SGPT) 36 U/L (12-78) Alkaline Phosphatase 105 U/L (46-116) Total Creatine Kinase 277 U/L (26-308) Creatine Kinase MB 1.2 NG/ML (0.0-3.6) Creatine Kinase MB Relative Index 0.4 Troponin I 0.000 ng/mL (0.000-0.056) Pro-B-Type Natriuretic Peptide 74 pg/mL (0-125) Total Protein 7.6 G/DL (6.4-8.2) Albumin 3.8 G/DL (3.4-5.0) Globulin 3.8 g/dL Albumin/Globulin Ratio 1.0 (1.0-2.7) EKG Diagnostic Results Rate: normal Rhythm: NSR ST Segments: no acute changes ASA given to the pt in ED: No - allergic to ASA Rhythm Strip Diag. Results EP Interpretation: yes Rhythm: NSR, no PVC's, no ectopy Chest X-Ray Diagnostic Results Chest X-Ray Diagnostic Results : Chest X-Ray Ordered: Yes # of Views/Limited/Complete: 1 View Indication: Shortness of Breath EP Interpretation: Yes Interpretation: no consolidation, no pneumothorax, other - atelectasis lower lung bonilla Subjective ROS Limited/Unobtainable: No Respiratory: Reports: shortness of breath Cardiovascular: Reports: chest pain Allergies: Coded Allergies: ASPIRIN (Verified Allergy, Unknown, 07/14/18) KETOROLAC (Verified Allergy, Unknown, 07/14/18) PENICILLINS (Verified Allergy, Unknown, 07/14/18) Objective Last 24 Hour Vital Signs Date Time Temp Pulse Resp B/P (MAP) Pulse Ox O2 Delivery O2 Flow Rate FiO2 07/22/18 10:52 99.7 07/22/18 09:45 80 20 Room Air 07/22/18 09:00 Room Air 07/22/18 08:26 78 07/22/18 08:00 99.7 91 20 137/73 (94) 97 07/22/18 04:00 75 07/22/18 00:00 97.5 72 20 123/69 (87) 96 07/22/18 00:00 72 07/21/18 23:37 70 18 99 Room Air 21 07/21/18 23:33 98.9 07/21/18 23:28 71 18 95 Room Air 21 07/21/18 22:34 Room Air 07/21/18 20:30 98.9 82 18 112/58 100 Room Air 07/21/18 20:30 98.2 74 20 130/86 (101) 96 07/21/18 19:55 98.9 82 18 112/68 100 Room Air 07/21/18 17:53 99.1 74 20 108/55 100 Room Air 07/21/18 17:53 74 20 Room Air 07/21/18 17:40 86 22 100 Room Air 21 07/21/18 17:21 87 22 97 Room Air 21 07/21/18 17:21 87 22 Room Air 21 07/21/18 17:04 99.1 80 18 153/87 92 Room Air Intake and Output 07/21/18 07/22/18 18:59 06:59 Output Total 0 ml 0 ml Balance 0 ml 0 ml Output Urine Total 0 ml 0 ml # Bowel Movements 1 Microbiology Date/Time Source Procedure Growth Status 07/21/18 18:33 Nasal Nares Influenza Types A,B Antigen (CRISTY) - Final Complete Laboratory Tests 07/21/18 18:20: White Blood Count 11.2H, Red Blood Count 5.00, Hemoglobin 16.6, Hematocrit 49.1 , Mean Corpuscular Volume 98, Mean Corpuscular Hemoglobin 33.2H, Mean Corpuscular Hemoglobin Concent 33.8, Red Cell Distribution Width 12.2, Platelet Count 214, Mean Platelet Volume 5.9L, Neutrophils (%) (Auto) 62.7, Lymphocytes ( %) (Auto) 29.3, Monocytes (%) (Auto) 6.5, Eosinophils (%) (Auto) 0.7, Basophils (%) (Auto) 0.9, Sodium Level 140, Potassium Level 4.3, Chloride Level 103, Carbon Dioxide Level 27, Anion Gap 10, Blood Urea Nitrogen 33H, Creatinine 1.4H , Estimat Glomerular Filtration Rate 52.8, Glucose Level 92, Lactic Acid Level 1.40, Calcium Level 9.4, Total Bilirubin 1.0, Aspartate Amino Transf (AST/SGOT) 32, Alanine Aminotransferase (ALT/SGPT) 36, Alkaline Phosphatase 105, Total Creatine Kinase 277, Creatine Kinase MB 1.2, Creatine Kinase MB Relative Index 0.4, Troponin I 0.000, Pro-B-Type Natriuretic Peptide 74, Total Protein 7.6, Albumin 3.8, Globulin 3.8, Albumin/Globulin Ratio 1.0 07/21/18 19:30: Urine Color Yellow, Urine Appearance Clear, Urine pH 5, Urine Specific [place] 1.015, Urine Protein Negative, Urine Glucose (UA) Negative, Urine Ketones Negative, Urine Blood 1+H, Urine Nitrite Negative, Urine Bilirubin Negative, Urine Urobilinogen 1H, Urine Leukocyte Esterase 1+H, Urine RBC 0-2H, Urine WBC 0 -2, Urine Squamous Epithelial Cells Occasional, Urine Bacteria Occasional Current Medications Medications (Trade) Dose Ordered Sig/Luis Route PRN Reason Start Time Stop Time Status Last Admin Dose Admin Acetaminophen/ Hydrocodone Bitart (Goodman 10/325) 1 tab Q6H PRN ORAL Moderate Pain (Pain Scale 4-6) 07/22/18 09:15 07/29/18 09:14 Albuterol/ Ipratropium (Albuterol/ Ipratropium) 3 ml Q6HRT HHN 07/22/18 19:00 07/27/18 18:59 Doxycycline Monohydrate (Vibramycin) 100 mg EVERY 12 HOURS ORAL 07/22/18 14:00 07/29/18 13:59 07/22/18 14:33 Heparin Sodium (Porcine) (Heparin 5000 units/ml) 5,000 units EVERY 12 HOURS SUBQ 07/22/18 21:00 08/21/18 20:59 Methylprednisolone Sodium Succinate (Solu-MEDROL) 40 mg EVERY 12 HOURS IVP 07/22/18 21:00 08/21/18 20:59 Morphine Sulfate (Morphine Sulfate) 4 mg Q4H PRN IVP Severe Pain (Pain Scale 7-10) 07/22/18 09:15 07/29/18 09:14 07/22/18 14:33 Elliot Stewart MD Jul 22, 2018 16:06
--- NOTE | 2018-07-22 16:28 | Consultation ---
Consult Note Consult Note HEMATOLOGY-ONCOLOGY CONSULTATION REFERRING PHYSICIAN: Ernesto Nicole REASON FOR CONSULT: Leukocytosis DATE OF CONSULT: 07/22/2018 HPI 52-year-old male presented to ED for evaluation. Came from [facility] facility with chest pain. Started about 2 hours prior to arrival with a sudden onset. Was given nitroglycerin 2 with some chest pain improvement. Also c/o shortness of breath. Notes history of COPD and CHF. States that his facility does not have his Lasix or albuterol. Denies fevers chills. Hematology service consulted for the evaluation of leukocytosis. Labs and imaging have been reviewed. Allergies: Coded Allergies: ASPIRIN (Verified Allergy, Unknown, 07/14/18) KETOROLAC (Verified Allergy, Unknown, 07/14/18) PENICILLINS (Verified Allergy, Unknown, 07/14/18) Patient History Past Medical History: HTN, NE, CHF, COPD, seizures, psych hx Past Surgical History: none Pertinent Family History: none Social History: Denies: smoking, alcohol use, drug use Immunizations: UTD Reviewed Nursing Documentation: PMH: Agreed; PSxH: Agreed Nursing Documentation-PMH Hx Cardiac Problems: Yes - NE, heart failure Hx Hypertension: Yes Hx COPD: Yes Hx Cancer: No Hx Gastrointestinal Problems: Yes History Of Psychiatric Problem: Yes - Major depression, anxiety Hx Neurological Problems: Yes Hx Seizures: Yes Review of Systems All Other Systems: negative except mentioned in HPI Physical Exam Vitals: Have been reviewed Sp02 EP Interpretation: reviewed, normal General Appearance: no apparent distress, alert, GCS 15, non-toxic, obese Head: normocephalic Eyes: bilateral eye normal inspection, bilateral eye PERRL ENT: normal ENT inspection Neck: normal inspection Respiratory: crackles, wheezing Cardiovascular #1: regular rate, rhythm, no edema Gastrointestinal: normal bowel sounds, non tender, soft, non-distended, no guarding, no rebound Rectal: deferred Genitourinary: no CVA tenderness Musculoskeletal: normal inspection Neurologic: alert, oriented x3, responsive, motor strength/tone normal, sensory intact, speech normal Psychiatric: normal inspection Skin: normal inspection Lymphatic: normal inspection MEDICATIONS: Current meds have been reviewed LABS: wbc 11.2 hgb 16.6 plt 214 IMAGING: CXR --> Unremarkable. ASSESSMENT AND RECOMMENDATIONS # Leukocytosis. Likely related to underlying infection versus reactive process. --> Monitor and trend wbc for improvement. --> Peripheral has been ordered, results are pending --> Medications have been reviewed --> Imaging has been reviewed, reveals xxx --> Blood cultures and urine cultures prn --> has been started on abx, empiric treatment # Chest pain. Cardiology is following, appreciate recs. --> Nitro prn. # CHF. # COPD. Pulmonary is following, appreciate recs. --> O2 for O2 sats 90-96% --> BiPAP 12/7 QHS/PRN # ACS. GREATLY APPRECIATE CONSULTATION Jay Wilson MD Jul 22, 2018 16:28
--- NOTE | 2018-07-22 17:15 | Consultation ---
DATE OF CONSULTATION: 07/22/2018 DATE OF ADMISSION: 07/21/2018 CONSULTING PHYSICIAN: Alexandre Maher M.D. REASON FOR CONSULTATION: 1. Acute kidney injury. 2. CKD stage 3B. HISTORY OF PRESENT ILLNESS: The patient is a pleasant 52-year-old gentleman admitted overnight for further evaluation and care from [facility] with chest pain. It was sudden in onset 2 hours prior to arrival. Creatinine currently 1.4. The patient states he had been on hemodialysis in the past and has a left upper extremity wrist AV fistula. States his acute kidney injury at that time had resolved and had suffered from severe hyperkalemia. He is now off of hemodialysis with chronic kidney disease. No nausea, vomiting, or diarrhea currently. ALLERGIES: Aspirin, ketorolac, and penicillins. PAST MEDICAL HISTORY: 1. On dialysis in the past. 2. Hypertension. 3. Myocardial infarction. 4. CHF. 5. COPD. 6. Seizures. 7. History of psychiatric disorders. PAST SURGICAL HISTORY: Left upper extremity AV fistula. SOCIAL HISTORY: No tobacco, alcohol, or illicit drug use. REVIEW OF SYSTEMS: NEUROLOGIC: The patient denies headache, change in vision, syncope, or presyncopal episodes. CARDIOVASCULAR: No current chest pain, palpitations, or angina. PULMONARY: Mild shortness of breath. Nonproductive cough. GASTROINTESTINAL/GENITOURINARY: No changes in urinary or bowel habits. No nausea, vomiting, or diarrhea. ENDOCRINOLOGIC: No night sweats, fevers, or chills. MUSCULOSKELETAL: The patient is feeling weak, tired, and fatigued. LABORATORY DATA: Laboratories dated July 21, 2018, white count 11.2, hemoglobin 16.6, and platelet count 214,000. Sodium 140, potassium 4.3, BUN 33, creatinine 1.4. Troponin zero. PHYSICAL EXAMINATION: VITAL SIGNS: Blood pressure 137/73, respiratory rate 20, pulse 91, temperature 99.7. GENERAL: The patient is awake, alert, not in distress. HEENT: Extraocular muscles intact. Oropharyngeal mucosa is clear and dry. NECK: No lymphadenopathy. CARDIOVASCULAR: S1 and S2. No rubs or gallops. PULMONARY: Clear to auscultation bilaterally with mild expiratory wheezing. ABDOMINAL: Obese, nondistended, nontender. EXTREMITIES: No edema noted. ASSESSMENT AND PLAN: 1. Acute on chronic kidney disease, stage 3B. The patient's creatinine currently 1.4 yesterday. We will order repeat laboratories for this morning and tomorrow. The patient does have history of being on hemodialysis. Avoid any nephrotoxins and renally adjust any doses of medications as deemed appropriate. No further renal investigations required at this time. 2. COPD exacerbation, per Pulmonary. Manager Scheduling is Dr. Ford. 3. Pain management, being addressed by Pain Management team. Alexandre Maher MD DR: Thomas JOB#: [id number] CC:
[2018-07-22] MEDS: MS Contin 15mg tab ORAL SCH (17:23)
--- NOTE | 2018-07-22 19:05 | NUR ---
HAND-OFF: Report given to Thomas Sprague RN.
--- NOTE | 2018-07-22 19:34 | NUR ---
NURSE NOTES: Received report from MICAELA Newman. Pt in AO4 in bed with no signs of acute distress. VSS. No IV access; will attempt to establish access. Bed at lowest position; side rails raised x3; bed alarm on; call light within reach. Discussed plan of care for shift. Pt requests 4 sandwiches and 6 orange juice; will provide when available.
[2018-07-22] MEDS: Albuterol/Ipratropium 3ml neb HHN SCH (19:35)
[2018-07-22 20:00] VITALS: BP 111/68
[2018-07-22] MEDS: Solu-MEDROL 40mg Inj IVP SCH (21:00)
[2018-07-22] MEDS: Heparin 5000 units/ml inj SUBQ SCH (21:34)
--- NOTE | 2018-07-22 21:59 | Consultation ---
History of Present Illness General Date patient seen: Jul 22, 2018 Time patient seen: 21:54 Chief Complaint: Chest Pain Present Illness HPI 52 year old male Pt. brought in by ambulance from [facility] due to CP X 2 hours ago radiating to the L shoulder, he was given nitro upon arrival. CXR clear, troponin negative, EKG normal, WBC mildly elevated, creatinine elevated. Allergies: Coded Allergies: ASPIRIN (Verified Allergy, Unknown, 07/14/18) KETOROLAC (Verified Allergy, Unknown, 07/14/18) PENICILLINS (Verified Allergy, Unknown, 07/14/18) Medication History Scheduled Amlodipine Besylate (Norvasc), 5 MG ORAL DAILY, (Reported) Atorvastatin Calcium* (Lipitor*), 80 MG ORAL BEDTIME, (Reported) Docusate Sodium* (Docusate Sodium*), 100 MG ORAL DAILY, (Reported) Duloxetine Hcl* (Cymbalta*), 30 MG ORAL DAILY, (Reported) Duloxetine Hcl* (Cymbalta*), 30 MG ORAL DAILY, (Reported) Furosemide* (Lasix*), 40 MG ORAL EVERY 8 HOURS, (Reported) Furosemide* (Lasix*), 40 MG ORAL Q8HR, (Reported) Gabapentin* (Gabapentin*), 600 MG ORAL THREE TIMES A DAY, (Reported) Ipratropium/Albuterol Sulfate (DuoNeb 0.5-3(2.5)mg/3ml), 3 ML HHN Q6HR, ( Reported) Isosorbide Mononitrate (Isosorbide Mononitrate Er), 30 MG PO DAILY, (Reported) Levetiracetam (Keppra Xr), 500 MG ORAL BID, (Reported) Morphine Sulfate (Morphine Sulfate Er), 15 MG PO DAILY, (Reported) Prednisone* (Prednisone*), 20 MG ORAL DAILY, (Reported) Sennosides (Senna), 17.2 MG PO BEDTIME, (Reported) Theophylline (Theodur*), 100 MG ORAL TWICE A DAY, (Reported) Scheduled PRN Acetaminophen* (Acetaminophen 325MG Tablet*), 650 MG ORAL Q4H PRN for Mild Pain (Pain Scale 1-3), (Reported) Acetaminophen* (Acetaminophen 325MG Tablet*), 650 MG ORAL Q4H PRN for Mild Pain/ Temp > 100.5, (Reported) Bisacodyl (Dulcolax), 10 MG RC DAILY PRN for IF MOM INEFFECTIVE, (Reported) Codeine/Promethazine Hcl* (Promethazine-Codeine Syrup*), 5 ML ORAL Q4H PRN for For Cough, (Reported) Hydrocodone Bit/Acetaminophen 10-325* ([place] 10-325*), 1 TAB ORAL Q4H PRN for Moderate Pain (Pain Scale 4-6), (Reported) Magnesium Hydroxide* (Milk Of Magnesia*), 30 ML ORAL BEDTIME PRN for IF DOCUSATE INEFFECTIVE, (Reported) Na Phos,M-B/Na Phos,Di-Ba* (Fleet Enema*), 133 ML RECTAL QOD PRN for IF DULCOLAX INEFFECTIVE, (Reported) Nitroglycerin (Nitrostat), 0.4 MG SL Q5M X3 DOSES PRN for CHEST PAIN, (Reported) Ondansetron* (Zofran*), 4 MG ORAL Q6H PRN for Nausea & Vomiting, (Reported) Polyethylene Glycol 3350* (Miralax*), 17 GM ORAL DAILY PRN for Constipation, ( Reported) Temazepam* (Restoril*), 15 MG ORAL BEDTIME PRN for Insomnia, (Reported) Temazepam* (Restoril*), 15 MG ORAL BEDTIME PRN for Insomnia, (Reported) Patient History Healthcare decision maker Resuscitation status Full Code Advanced Directive on File Yes Review of Systems Constitutional: Reports: no symptoms Eye: Reports: no symptoms ENT: Reports: no symptoms Respiratory: Reports: no symptoms Cardiovascular: Reports: chest pain Gastrointestinal: Reports: no symptoms Genitourinary: Reports: no symptoms Musculoskeletal: Reports: no symptoms Skin: Reports: no symptoms Psychiatric: Reports: no symptoms Neurological: Reports: no symptoms Endocrine: Reports: no symptoms Hematologic/Lymphatic: Reports: no symptoms Physical Exam General Appearance: no apparent distress, alert Lines, tubes and drains: peripheral HEENT: normocephalic, atraumatic, anicteric, mucous membranes moist, PERRL Neck: non-tender, normal alignment, supple, normal inspection Respiratory/Chest: chest wall non-tender, lungs clear, no respiratory distress Cardiovascular/Chest: normal peripheral pulses, normal rate, regular rhythm Abdomen: normal bowel sounds, non tender, soft, no organomegaly Extremities: normal range of motion, non-tender, normal inspection Skin Exam: normal pigmentation 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, no motor/sensory deficits Last 24 Hour Vital Signs Date Time Temp Pulse Resp B/P (MAP) Pulse Ox O2 Delivery O2 Flow Rate FiO2 07/22/18 20:00 98.5 80 20 111/68 (82) 100 07/22/18 19:45 71 20 95 Room Air 21 07/22/18 19:35 82 20 95 Room Air 21 07/22/18 19:35 82 20 Room Air 07/22/18 16:00 98.8 79 18 111/73 (86) 97 07/22/18 15:14 73 07/22/18 12:09 70 07/22/18 12:00 98.2 78 20 134/76 (95) 98 07/22/18 10:52 99.7 07/22/18 09:45 80 20 Room Air 07/22/18 09:00 Room Air 07/22/18 08:26 78 07/22/18 08:00 99.7 91 20 137/73 (94) 97 07/22/18 04:00 75 07/22/18 00:00 97.5 72 20 123/69 (87) 96 07/22/18 00:00 72 07/21/18 23:37 70 18 99 Room Air 21 07/21/18 23:33 98.9 07/21/18 23:28 71 18 95 Room Air 21 07/21/18 22:34 Room Air Intake and Output 07/21/18 07/22/18 18:59 06:59 Output Total 0 ml 0 ml Balance 0 ml 0 ml Output Urine Total 0 ml 0 ml # Bowel Movements 1 Height (Feet): 5 Height (Inches): 11.00 Weight (Pounds): 415 Medications Current Medications Medications (Trade) Dose Ordered Sig/Luis Route PRN Reason Start Time Stop Time Status Last Admin Dose Admin Acetaminophen/ Hydrocodone Bitart ([place] 10/325) 1 tab Q6H PRN ORAL Moderate Pain (Pain Scale 4-6) 07/22/18 09:15 07/29/18 09:14 Albuterol/ Ipratropium (Albuterol/ Ipratropium) 3 ml Q6HRT HHN 07/22/18 19:00 07/27/18 18:59 07/22/18 19:35 Doxycycline Monohydrate (Vibramycin) 100 mg EVERY 12 HOURS ORAL 07/22/18 14:00 07/29/18 13:59 07/22/18 21:34 Heparin Sodium (Porcine) (Heparin 5000 units/ml) 5,000 units EVERY 12 HOURS SUBQ 07/22/18 21:00 08/21/18 20:59 07/22/18 21:34 Methylprednisolone Sodium Succinate (Solu-MEDROL) 40 mg EVERY 12 HOURS IVP 07/22/18 21:00 08/21/18 20:59 Morphine Sulfate (MS Contin) 15 mg BID ORAL 07/22/18 18:00 07/29/18 17:59 07/22/18 17:23 Morphine Sulfate (Morphine Sulfate) 4 mg Q4H PRN IVP Severe Pain (Pain Scale 7-10) 07/22/18 09:15 07/29/18 09:14 07/22/18 14:33 Assessment/Plan Status: stable Assessment/Plan Assessment/Plan Assessment/Plan (1) Lumbar DDD (2) Lumbar Spondylosis (3) Lumbar Radiculopathy (4) Morbid Obesity (5) Right knee pain (6) Right knee OA h/o ORIF (7) COPD (8) ACS (9) Chest pain -Serial EKG/Troponin -Echocardiogram -Lexiscan cardiolite given hx of LA in past -Allergic to aspirin -Statin -Plavix -Nitro prn chest pain -Hold heparin -Monitor renal function, hold nephrotoxic medications Elliot Davis MD Jul 22, 2018 21:59
[2018-07-22] MEDS ORDERED: Lexiscan 0.4mg/5ml syringe IV PRN (22:00)
[2018-07-22] MEDS ORDERED: Nitroglycerin Subl 0.4mg tab SL PRN (22:00)
[2018-07-23] VITALS: BP 127/97
[2018-07-23] MEDS: Albuterol/Ipratropium 3ml neb HHN SCH ×4 (00:14→19:29)
[2018-07-23] MEDS: Morphine Sulfate 4mg/ml Inj (IV/IM USE ONLY) IVP PRN ×5 (02:00→20:32)
--- NOTE | 2018-07-23 03:17 | NUR ---
NURSE NOTES: Recvd pt. will continue with plan of care
--- NOTE | 2018-07-23 03:55 | NUR ---
HAND-OFF: Report given to MICAELA Patterson. Patient in stable condition. Plan of care endorsed.
--- NOTE | 2018-07-23 07:20 | NUR ---
NURSE NOTES: I received the patient resting in bed. Patient alert and oriented x4. Patient's IV patent. Bed in the lowest position and call light within reach. I will continue to monitor the patient and implement care.
[2018-07-23 07:41] LABS: ANION GAP 8 mmol/L (5-15); BLOOD UREA NITROGEN 30 mg/dL (7-18); CALCIUM 8.8 MG/DL (8.5-10.1); CARBON DIOXIDE 26 MMOL/L (21-32); CHLORIDE 106 MMOL/L (98-107); CREATININE 1.2 MG/DL (0.55-1.30); POTASSIUM 4.7 MMOL/L (3.5-5.1); SODIUM 140 MMOL/L (136-145)
[2018-07-23 08:00] VITALS: BP 122/88
--- NOTE | 2018-07-23 08:12 | NUR ---
NURSE NOTES: RN made aware that the stress test can't be performed because there is not a nuclear medicine available. Dr. Davis made aware.
--- NOTE | 2018-07-23 09:09 | Nephrology Progress Note ---
Assessment/Plan Assessment/Plan A/P 1) BELKIS on CKD 3B- Cr at baseline, down to 1.2 - stable. Avoid nephrotoxins 2) ACS/ - Lexiscan cardiolite / ECHO 3) COPD- per pulm Subjective Date patient seen: Jul 23, 2018 Time patient seen: 09:07 ROS Limited/Unobtainable: No Allergies: Coded Allergies: ASPIRIN (Verified Allergy, Unknown, 07/14/18) KETOROLAC (Verified Allergy, Unknown, 07/14/18) PENICILLINS (Verified Allergy, Unknown, 07/14/18) Subjective Patient in no overt distress Objective Last 24 Hour Vital Signs Date Time Temp Pulse Resp B/P (MAP) Pulse Ox O2 Delivery O2 Flow Rate FiO2 07/23/18 08:00 97.3 80 20 122/88 (99) 99 07/23/18 07:18 68 18 95 Room Air 21 07/23/18 07:08 60 18 97 Room Air 21 07/23/18 06:57 97.0 07/23/18 04:00 69 07/23/18 00:21 76 20 95 Room Air 21 07/23/18 00:14 84 22 97 Room Air 21 07/23/18 00:00 97.0 88 20 127/97 (107) 100 07/23/18 00:00 81 07/22/18 21:00 Room Air 07/22/18 20:00 98.5 80 20 111/68 (82) 100 07/22/18 20:00 83 07/22/18 19:45 71 20 95 Room Air 21 07/22/18 19:35 82 20 95 Room Air 21 07/22/18 19:35 82 20 Room Air 07/22/18 16:00 98.8 79 18 111/73 (86) 97 07/22/18 15:14 73 07/22/18 12:09 70 07/22/18 12:00 98.2 78 20 134/76 (95) 98 07/22/18 09:45 80 20 Room Air Intake and Output 07/22/18 07/23/18 19:00 07:00 Intake Total 480 ml Balance 480 ml Intake Oral 480 ml # Voids 5 Laboratory Tests 07/23/18 06:49: Sodium Level 140, Potassium Level 4.7, Chloride Level 106, Carbon Dioxide Level 26, Anion Gap 8, Blood Urea Nitrogen 30H, Creatinine 1.2, Estimat Glomerular Filtration Rate > 60, Glucose Level 95, Calcium Level 8.8 Height (Feet): 5 Height (Inches): 11.00 Weight (Pounds): 415 General Appearance: no apparent distress, alert Cardiovascular: normal rate, regular rhythm Respiratory/Chest: lungs clear, normal breath sounds Abdomen: non tender, soft Edema: no edema noted Arm (L), no edema noted Arm (R), no edema noted Leg (L), no edema noted Leg (R), no edema noted Pedal (L), no edema noted Pedal (R), no edema noted Generalized Alexandre Maher MD Jul 23, 2018 09:09
--- NOTE | 2018-07-23 09:20 | General Progress Note ---
Assessment/Plan Assessment/Plan (1) Lumbar DDD (2) Lumbar Spondylosis (3) Lumbar Radiculopathy (4) Morbid Obesity (5) Right knee pain (6) Right knee OA h/o ORIF Patient will be continued on Morphine and [place]. D/w Dr. Magaña and he concurred. Subjective Date patient seen: Jul 23, 2018 Time patient seen: 07:45 - am Allergies: Coded Allergies: ASPIRIN (Verified Allergy, Unknown, 07/14/18) KETOROLAC (Verified Allergy, Unknown, 07/14/18) PENICILLINS (Verified Allergy, Unknown, 07/14/18) Subjective REVIEW OF SYSTEMS: Denies rash, fever, chills, sweating, dizziness, drowsiness, blurred vision, sore throat, change in weight. No shortness of breath or chest pain. No nausea, vomiting, diarrhea, or blood in the stool or urine. No bowel or bladder incontinence. No dysuria. He is complaining of low back pain and right lower extremity pain. SUBJECTIVE: Patient has been in bed and showing no signs of pain. Was started on Morphine ER 15mg Q12H. He continues to get the Morphine IV as needed and [place]. Has no new complaints at this time. Objective Last 24 Hour Vital Signs Date Time Temp Pulse Resp B/P (MAP) Pulse Ox O2 Delivery O2 Flow Rate FiO2 07/23/18 08:00 97.3 80 20 122/88 (99) 99 07/23/18 07:18 68 18 95 Room Air 21 07/23/18 07:08 60 18 97 Room Air 07/23/18 06:57 97.0 07/23/18 04:00 69 07/23/18 00:21 76 20 95 Room Air 21 07/23/18 00:14 84 22 97 Room Air 21 07/23/18 00:00 97.0 88 20 127/97 (107) 100 07/23/18 00:00 81 07/22/18 21:00 Room Air 07/22/18 20:00 98.5 80 20 111/68 (82) 100 07/22/18 20:00 83 07/22/18 19:45 71 20 95 Room Air 21 07/22/18 19:35 82 20 95 Room Air 21 07/22/18 19:35 82 20 Room Air 12/26/18 16:00 98.8 79 18 111/73 (86) 97 07/22/18 15:14 73 07/22/18 12:09 70 07/22/18 12:00 98.2 78 20 134/76 (95) 98 07/22/18 09:45 80 20 Room Air Intake and Output 07/22/18 07/23/18 19:00 07:00 Intake Total 480 ml Balance 480 ml Intake Oral 480 ml # Voids 5 Laboratory Tests 07/23/18 06:49: Sodium Level 140, Potassium Level 4.7, Chloride Level 106, Carbon Dioxide Level 26, Anion Gap 8, Blood Urea Nitrogen 30H, Creatinine 1.2, Estimat Glomerular Filtration Rate > 60, Glucose Level 95, Calcium Level 8.8 Height (Feet): 5 Height (Inches): 11.00 Weight (Pounds): 415 Objective GENERAL: Alert, awake, and oriented x3. LUNGS: Decreased breath sounds bilaterally. HEART: S1 and S2, regular. ABDOMEN: Obese. EXTREMITIES: No cyanosis. No clubbing. No edema. NEURO: No Focal deficits. Eliezer Nicole Jul 23, 2018 09:20
[2018-07-23] MEDS: MS Contin 15mg tab ORAL SCH ×2 (09:25→18:27)
[2018-07-23] MEDS: Solu-MEDROL 40mg Inj IVP SCH ×2 (09:25→20:46)
[2018-07-23] MEDS: Heparin 5000 units/ml inj SUBQ SCH ×2 (09:26→20:57)
--- NOTE | 2018-07-23 11:54 | Cardiology Report ---
APPROVED REPORT EKG Measurement Heart [id number] Normal sinus rhythm Normal ECG
[2018-07-23 12:00] VITALS: BP 130/80
[2018-07-23 16:00] VITALS: BP 144/75
--- NOTE | 2018-07-23 16:54 | Pulmonology Progress Note ---
Assessment/Plan Assessment/Plan Pulmonary Progress Note HPI 52-year-old male presents ED for evaluation. Coming from assisted facility with chest pain. Started about 2 hours prior to arrival. Sudden onset. Pressure, 7 out of 10, nonradiating. Given nitroglycerin 2 with some chest pain improvement. Also notes shortness of breath. Notes history of COPD and CHF. States that his facility does not have his Lasix or albuterol. Denies fevers chills. Denies cough. No other aggravating relieving factors. Denies any other associated symptoms Allergies: ASPIRIN (Verified Allergy, Unknown, 07/14/18) KETOROLAC (Verified Allergy, Unknown, 07/14/18) PENICILLINS (Verified Allergy, Unknown, 07/14/18) Patient History Past Medical History: HTN, [place], CHF, COPD, ADALBERTO, Obesity, seizures, psych hx Past Surgical History: none Pertinent Family History: none Social History: Denies: smoking, alcohol use, drug use Immunizations: UTD Reviewed Nursing Documentation: PMH: Agreed; PSxH: Agreed Review of Systems All Other Systems: negative except mentioned in HPI Physical Exam Vital Signs Noted Date Time Temp Pulse Resp B/P (MAP) Pulse Ox O2 Delivery O2 Flow Rate FiO2 07/21/18 17:04 99.1 80 18 153/87 92 Room Air 07/21/18 17:21 21 General Appearance: no apparent distress, alert, GCS 15, non-toxic, obese Head: normocephalic Eyes: bilateral eye normal inspection, bilateral eye PERRL ENT: normal ENT inspection Neck: normal inspection Respiratory: crackles, wheezing Cardiovascular #1: regular rate, rhythm, no edema Gastrointestinal: normal bowel sounds, non tender, soft, non-distended, no guarding, no rebound Rectal: deferred Genitourinary: no CVA tenderness Musculoskeletal: normal inspection Neurologic: alert, oriented x3, responsive, motor strength/tone normal, sensory intact, speech normal Psychiatric: normal inspection Skin: normal inspection Lymphatic: normal inspection Impression: Chest Pain Chronic obstructive pulmonary disease with exaccerbation Congestive heart failure For r/o ACS HTN CAD, previous [place] ADALBERTO Obesity Previous Seizures Depression/Anxiety Plan - Monitored bed - Labs - R/o ACS - HHN - IV Solumedrol - O2 for O2 sats 90-96% - BiPAP 12/ QHS/PRN - Doxycycline 100mg PO bid - Lasix PRN Labs Test 07/21/18 18:20 White Blood Count 11.2 K/UL (4.8-10.8) Red Blood Count 5.00 M/UL (4.70-6.10) Hemoglobin 16.6 G/DL (14.2-18.0) Hematocrit 49.1 % (42.0-52.0) Mean Corpuscular Volume 98 FL (80-99) Mean Corpuscular Hemoglobin 33.2 PG (27.0-31.0) Mean Corpuscular Hemoglobin Concent 33.8 G/DL (32.0-36.0) Red Cell Distribution Width 12.2 % (11.6-14.8) Platelet Count 214 K/UL (150-450) Mean Platelet Volume 5.9 FL (6.5-10.1) Neutrophils (%) (Auto) 62.7 % (45.0-75.0) Lymphocytes (%) (Auto) 29.3 % (20.0-45.0) Monocytes (%) (Auto) 6.5 % (1.0-10.0) Eosinophils (%) (Auto) 0.7 % (0.0-3.0) Basophils (%) (Auto) 0.9 % (0.0-2.0) Sodium Level 140 MMOL/L (136-145) Potassium Level 4.3 MMOL/L (3.5-5.1) Chloride Level 103 MMOL/L (98-107) Carbon Dioxide Level 27 MMOL/L (21-32) Anion Gap 10 mmol/L (5-15) Blood Urea Nitrogen 33 mg/dL (7-18) Creatinine 1.4 MG/DL (0.55-1.30) Estimat Glomerular Filtration Rate 52.8 mL/min (>60) Glucose Level 92 MG/DL (74-106) Lactic Acid Level 1.40 mmol/L (0.4-2.0) Calcium Level 9.4 MG/DL (8.5-10.1) Total Bilirubin 1.0 MG/DL (0.2-1.0) Aspartate Amino Transf (AST/SGOT) 32 U/L (15-37) Alanine Aminotransferase (ALT/SGPT) 36 U/L (12-78) Alkaline Phosphatase 105 U/L (46-116) Total Creatine Kinase 277 U/L (26-308) Creatine Kinase MB 1.2 NG/ML (0.0-3.6) Creatine Kinase MB Relative Index 0.4 Troponin I 0.000 ng/mL (0.000-0.056) Pro-B-Type Natriuretic Peptide 74 pg/mL (0-125) Total Protein 7.6 G/DL (6.4-8.2) Albumin 3.8 G/DL (3.4-5.0) Globulin 3.8 g/dL Albumin/Globulin Ratio 1.0 (1.0-2.7) EKG Diagnostic Results Rate: normal Rhythm: NSR ST Segments: no acute changes ASA given to the pt in ED: No - allergic to ASA Rhythm Strip Diag. Results EP Interpretation: yes Rhythm: NSR, no PVC's, no ectopy Chest X-Ray Diagnostic Results Chest X-Ray Diagnostic Results : Chest X-Ray Ordered: Yes # of Views/Limited/Complete: 1 View Indication: Shortness of Breath EP Interpretation: Yes Interpretation: no consolidation, no pneumothorax, other - atelectasis lower lung bonilla Subjective ROS Limited/Unobtainable: No Allergies: Coded Allergies: ASPIRIN (Verified Allergy, Unknown, 07/14/18) KETOROLAC (Verified Allergy, Unknown, 07/14/18) PENICILLINS (Verified Allergy, Unknown, 07/14/18) Objective Last 24 Hour Vital Signs Date Time Temp Pulse Resp B/P (MAP) Pulse Ox O2 Delivery O2 Flow Rate FiO2 07/23/18 16:17 97.7 07/23/18 16:00 98.4 73 20 144/75 (98) 96 07/23/18 15:36 66 07/23/18 13:10 74 18 99 Room Air 21 07/23/18 13:00 74 18 97 Room Air 21 07/23/18 12:00 97.7 82 18 130/80 (97) 98 07/23/18 11:59 60 07/23/18 09:55 97.3 07/23/18 09:00 Room Air 07/23/18 08:00 97.3 80 20 122/88 (99) 99 07/23/18 07:41 60 07/23/18 07:18 68 18 95 Room Air 21 07/23/18 07:08 60 18 97 Room Air 21 12/27/18 04:00 69 07/23/18 00:21 76 20 95 Room Air 21 07/23/18 00:14 84 22 97 Room Air 21 07/23/18 00:00 97.0 88 20 127/97 (107) 100 07/23/18 00:00 81 07/22/18 21:00 Room Air 07/22/18 20:00 98.5 80 20 111/68 (82) 100 07/22/18 20:00 83 07/22/18 19:45 71 20 95 Room Air 21 07/22/18 19:35 82 20 95 Room Air 21 07/22/18 19:35 82 20 Room Air Intake and Output 07/22/18 07/23/18 19:00 07:00 Intake Total 480 ml Balance 480 ml Intake Oral 480 ml # Voids 5 Microbiology Date/Time Source Procedure Growth Status 07/21/18 18:20 Blood Blood Culture - Preliminary NO GROWTH AFTER 24 HOURS Resulted 07/21/18 18:20 Blood Blood Culture - Preliminary NO GROWTH AFTER 24 HOURS Resulted 07/21/18 18:33 Nasal Nares Influenza Types A,B Antigen (CRISTY) - Final Complete Laboratory Tests 07/23/18 06:49: Sodium Level 140, Potassium Level 4.7, Chloride Level 106, Carbon Dioxide Level 26, Anion Gap 8, Blood Urea Nitrogen 30H, Creatinine 1.2, Estimat Glomerular Filtration Rate > 60, Glucose Level 95, Calcium Level 8.8 Current Medications Medications (Trade) Dose Ordered Sig/Luis Route PRN Reason Start Time Stop Time Status Last Admin Dose Admin Acetaminophen/ Hydrocodone Bitart ([place] 10/325) 1 tab Q6H PRN ORAL Moderate Pain (Pain Scale 4-6) 07/22/18 09:15 07/29/18 09:14 Albuterol/ Ipratropium (Albuterol/ Ipratropium) 3 ml Q6HRT HHN 07/22/18 19:00 07/27/18 18:59 07/23/18 13:00 Doxycycline Monohydrate (Vibramycin) 100 mg EVERY 12 HOURS ORAL 07/22/18 14:00 07/29/18 13:59 07/23/18 09:25 Heparin Sodium (Porcine) (Heparin 5000 units/ml) 5,000 units EVERY 12 HOURS SUBQ 07/22/18 21:00 08/21/18 20:59 07/23/18 09:26 Methylprednisolone Sodium Succinate (Solu-MEDROL) 40 mg EVERY 12 HOURS IVP 07/22/18 21:00 08/21/18 20:59 07/23/18 09:25 Morphine Sulfate (MS Contin) 15 mg BID ORAL 07/22/18 18:00 07/29/18 17:59 07/23/18 09:25 Morphine Sulfate (Morphine Sulfate) 4 mg Q4H PRN IVP Severe Pain (Pain Scale 7-10) 07/22/18 09:15 07/29/18 09:14 07/23/18 15:47 Nitroglycerin (Ntg) 0.4 mg Q5M PRN SL Prn Chest Pain 07/22/18 22:00 08/21/18 21:59 Regadenoson (Lexiscan) 0.4 mg ONCE PRN IV stress test 07/22/18 22:00 07/24/18 21:59 Elliot Stewart MD Jul 23, 2018 16:54
--- NOTE | 2018-07-23 19:38 | NUR ---
HAND-OFF: Report given to MICAELA Orr.
--- NOTE | 2018-07-23 19:47 | General Progress Note ---
Assessment/Plan Assessment/Plan ASSESSMENT AND RECOMMENDATIONS # Leukocytosis. Likely related to underlying infection versus reactive process. --> Monitor and trend wbc for improvement. --> Peripheral has been ordered, results are pending --> Medications have been reviewed --> Imaging has been reviewed, reveals xxx --> Blood cultures and urine cultures prn --> has been started on abx, empiric treatment as well # Chest pain. Cardiology is following, appreciate recs. --> Nitro prn. --> lexican as per cards # CHF. # COPD. Pulmonary is following, appreciate recs. --> O2 for O2 sats 90-96% --> BiPAP 07/03 QHS/PRN # ACS. Time of service may not reflect exactly time of encounter Subjective Constitutional: Denies: no symptoms, chills, diaphoresis, fever, malaise, weakness, other HEENT: Denies: no symptoms, eye pain, blurred vision, tearing, double vision, ear pain, ear discharge, nose pain, nose congestion, throat pain, throat swelling, mouth pain, mouth swelling, other Respiratory: Denies: no symptoms, cough, orthopnea, shortness of breath, SOB with excertion, SOB at rest, sputum, stridor, wheezing, other Gastrointestinal/Abdominal: Denies: no symptoms, abdomen distended, abdominal pain, black stools, tarry stools, blood in stool, constipated, diarrhea, difficulty swallowing, nausea, poor appetite, poor fluid intake, rectal bleeding , vomiting, other Genitourinary: Denies: no symptoms, burning, discharge, frequency, flank pain, hematuria, incontinence, pain, urgency, other Endocrine: Denies: no symptoms, excessive sweating, flushing, intolerance to cold, intolerance to heat, increased hunger, increased thirst, increased urine, unexplained weight gain, unexplained weight loss, other Allergies: Coded Allergies: ASPIRIN (Verified Allergy, Unknown, 07/14/18) KETOROLAC (Verified Allergy, Unknown, 07/14/18) PENICILLINS (Verified Allergy, Unknown, 07/14/18) Subjective 07/23: no events, chest pain resolved, feeling better, cr improved as well, no complaints Objective Last 24 Hour Vital Signs Date Time Temp Pulse Resp B/P (MAP) Pulse Ox O2 Delivery O2 Flow Rate FiO2 12/27/18 19:35 72 18 100 Room Air 21 07/23/18 19:26 71 18 96 Room Air 21 07/23/18 18:57 97.7 07/23/18 16:17 97.7 07/23/18 16:00 98.4 73 20 144/75 (98) 96 07/23/18 15:36 66 07/23/18 13:10 74 18 99 Room Air 21 07/23/18 13:00 74 18 97 Room Air 21 07/23/18 12:00 97.7 82 18 130/80 (97) 98 07/23/18 11:59 60 07/23/18 09:00 Room Air 07/23/18 08:00 97.3 80 20 122/88 (99) 99 07/23/18 07:41 60 07/23/18 07:18 68 18 95 Room Air 21 07/23/18 07:08 60 18 97 Room Air 21 07/23/18 04:00 69 07/23/18 00:21 76 20 95 Room Air 21 07/23/18 00:14 84 22 97 Room Air 21 07/23/18 00:00 97.0 88 20 127/97 (107) 100 07/23/18 00:00 81 07/22/18 21:00 Room Air 07/22/18 20:00 98.5 80 20 111/68 (82) 100 07/22/18 20:00 83 Intake and Output 07/22/18 07/23/18 18:59 06:59 Intake Total 480 ml Balance 480 ml Intake Oral 480 ml # Voids 5 Laboratory Tests 07/23/18 06:49: Sodium Level 140, Potassium Level 4.7, Chloride Level 106, Carbon Dioxide Level 26, Anion Gap 8, Blood Urea Nitrogen 30H, Creatinine 1.2, Estimat Glomerular Filtration Rate > 60, Glucose Level 95, Calcium Level 8.8 Height (Feet): 5 Height (Inches): 11.00 Weight (Pounds): 415 EENT: normal ENT inspection Neck: supple Cardiovascular: normal rate Respiratory/Chest: no respiratory distress Abdomen: no mass Extremities: non-tender Neurologic: alert Skin: warm/dry Jay Wilson MD Jul 23, 2018 19:47
--- NOTE | 2018-07-23 19:49 | History & Physical ---
History and Physical History & Physicial H&P INTERNAL MEDICINE COVERIN FOR PHYSICIAN: Ernesto Nicole REASON FOR CONSULT: Leukocytosis DATE OF CONSULT: 07/22/2018 HPI 52-year-old male presented to ED for evaluation. [facility]. Started about 2 hours prior to arrival with a sudden onset. Was given nitroglycerin 2 with some chest pain improvement. Also c/o shortness of breath. Notes history of COPD and CHF. States that his facility does not have his Lasix or albuterol. Denies fevers chills. Hematology service consulted for the evaluation of leukocytosis. Labs and imaging have been reviewed.Noted to have a high cr Allergies: Coded Allergies: ASPIRIN (Verified Allergy, Unknown, 07/14/18) KETOROLAC (Verified Allergy, Unknown, 07/14/18) PENICILLINS (Verified Allergy, Unknown, 07/14/18) Patient History Past Medical History: HTN, [place], CHF, COPD, seizures, psych hx Past Surgical History: none Pertinent Family History: none Social History: Denies: smoking, alcohol use, drug use Immunizations: UTD Reviewed Nursing Documentation: PMH: Agreed; PSxH: Agreed Nursing Documentation-PMH Hx Cardiac Problems: Yes - [place], heart failure Hx Hypertension: Yes Hx COPD: Yes Hx Cancer: No Hx Gastrointestinal Problems: Yes History Of Psychiatric Problem: Yes - Major depression, anxiety Hx Neurological Problems: Yes Hx Seizures: Yes Review of Systems All Other Systems: negative except mentioned in HPI Physical Exam Vitals: Have been reviewed Sp02 EP Interpretation: reviewed, normal General Appearance: no apparent distress, alert, GCS 15, non-toxic, obese Head: normocephalic Eyes: bilateral eye normal inspection, bilateral eye PERRL ENT: normal ENT inspection Neck: normal inspection Respiratory: crackles, wheezing Cardiovascular #1: regular rate, rhythm, no edema Gastrointestinal: normal bowel sounds, non tender, soft, non-distended, no guarding, no rebound Rectal: deferred Genitourinary: no CVA tenderness Musculoskeletal: normal inspection Neurologic: alert, oriented x3, responsive, motor strength/tone normal, sensory intact, speech normal Psychiatric: normal inspection Skin: normal inspection Lymphatic: normal inspection MEDICATIONS: Current meds have been reviewed LABS: wbc 11.2 hgb 16.6 plt 214 IMAGING: CXR --> Unremarkable. ASSESSMENT AND RECOMMENDATIONS # Leukocytosis. Likely related to underlying infection versus reactive process. --> Monitor and trend wbc for improvement. --> Peripheral has been ordered, results are pending --> Medications have been reviewed --> Imaging has been reviewed, reveals xxx --> Blood cultures and urine cultures prn --> has been started on abx, empiric treatment # Chest pain. Cardiology is following, appreciate recs. --> Nitro prn. # CHF. # COPD. Pulmonary is following, appreciate recs. --> O2 for O2 sats 90-96% --> BiPAP 12/7 QHS/PRN # ACS. GREATLY APPRECIATE CONSULTATION Jay Wilson MD Jul 23, 2018 19:49
--- NOTE | 2018-07-23 19:50 | NUR ---
NURSE NOTES: Received report from Maria De Jesus HINOJOSA. Patient is resting in bed with no signs of acute distress. Respiration even and non labored on room air. IV line patent and intact. Call light within reach. Bed at lowest position. Will continue plan of care.
[2018-07-23 20:00] VITALS: BP 144/69
--- NOTE | 2018-07-23 22:58 | Cardiology Progress Note ---
Subjective Cardiovascular: Reports: no symptoms Respiratory: Reports: no symptoms Gastrointestinal/Abdominal: Reports: no symptoms Genitourinary: Reports: no symptoms Subjective No acute events, vitals stable, echo wtih normal LV function but dilated IVC and right sided filling pressures, stress test not done yet, no chest pain Objective Last 24 Hour Vital Signs Date Time Temp Pulse Resp B/P (MAP) Pulse Ox O2 Delivery O2 Flow Rate FiO2 07/23/18 19:35 72 18 100 Room Air 21 07/23/18 19:26 71 18 96 Room Air 21 07/23/18 18:57 97.7 07/23/18 16:17 97.7 07/23/18 16:00 98.4 73 20 144/75 (98) 96 07/23/18 15:36 66 07/23/18 13:10 74 18 99 Room Air 21 07/23/18 13:00 74 18 97 Room Air 21 07/23/18 12:00 97.7 82 18 130/80 (97) 98 07/23/18 11:59 60 07/23/18 09:00 Room Air 07/23/18 08:00 97.3 80 20 122/88 (99) 99 07/23/18 07:41 60 07/23/18 07:18 68 18 95 Room Air 21 07/23/18 07:08 60 18 97 Room Air 21 07/23/18 04:00 69 07/23/18 00:21 76 20 95 Room Air 21 07/23/18 00:14 84 22 97 Room Air 21 07/23/18 00:00 97.0 88 20 127/97 (107) 100 07/23/18 00:00 81 General Appearance: no apparent distress, alert EENT: PERRL/EOMI, normal ENT inspection, TMs normal Neck: non-tender, normal alignment, supple, normal inspection, no JVD Rhythm: NSR Cardiovascular: normal peripheral pulses, normal rate, regular rhythm Respiratory/Chest: chest wall non-tender, lungs clear, normal breath sounds, no respiratory distress, no accessory muscle use Abdomen: normal bowel sounds, non tender, soft, no organomegaly, no mass Extremities: normal range of motion, non-tender, normal inspection Neurologic: terrazzo layer II-XII grossly normal, no motor/sensory deficits Intake and Output 07/22/18 07/23/18 18:59 06:59 Intake Total 480 ml Balance 480 ml Intake Oral 480 ml # Voids 5 Laboratory Tests Test 07/23/18 06:49 Sodium Level 140 MMOL/L (136-145) Potassium Level 4.7 MMOL/L (3.5-5.1) Chloride Level 106 MMOL/L (98-107) Carbon Dioxide Level 26 MMOL/L (21-32) Anion Gap 8 mmol/L (5-15) Blood Urea Nitrogen 30 mg/dL (7-18) H Creatinine 1.2 MG/DL (0.55-1.30) Estimat Glomerular Filtration Rate > 60 mL/min (>60) Glucose Level 95 MG/DL (74-106) Calcium Level 8.8 MG/DL (8.5-10.1) Microbiology Date/Time Source Procedure Growth Status 07/21/18 18:20 Blood Blood Culture - Preliminary NO GROWTH AFTER 24 HOURS Resulted 07/21/18 18:20 Blood Blood Culture - Preliminary NO GROWTH AFTER 24 HOURS Resulted 07/21/18 18:33 Nasal Nares Influenza Types A,B Antigen (CRISTY) - Final Complete FilsoElliot ferguson MD Jul 23, 2018 22:58
[2018-07-24] VITALS: BP 150/73
[2018-07-24] MEDS: Morphine Sulfate 4mg/ml Inj (IV/IM USE ONLY) IVP PRN ×6 (00:39→21:44)
[2018-07-24] MEDS: Albuterol/Ipratropium 3ml neb HHN SCH ×4 (00:46→18:56)
[2018-07-24 04:00] VITALS: BP 144/69
--- NOTE | 2018-07-24 07:42 | NUR ---
HAND-OFF: Report given to MICAELA Pretty.
[2018-07-24 08:00] VITALS: BP 141/84
--- NOTE | 2018-07-24 08:42 | Nephrology Progress Note ---
Assessment/Plan Assessment/Plan A/P 1) CKD 3B- Cr at baseline, AM labs pending. H/O being on dialysis - stable. - Avoid nephrotoxins 2) ACS/ - Lexiscan cardiolite / ECHO - per cardiology mgmt 3) COPD- per pulm Subjective Date patient seen: Jul 24, 2018 Time patient seen: 08:37 ROS Limited/Unobtainable: No Allergies: Coded Allergies: ASPIRIN (Verified Allergy, Unknown, 07/14/18) KETOROLAC (Verified Allergy, Unknown, 07/14/18) PENICILLINS (Verified Allergy, Unknown, 07/14/18) Subjective Patient no complaints. Lying flat Objective Last 24 Hour Vital Signs Date Time Temp Pulse Resp B/P (MAP) Pulse Ox O2 Delivery O2 Flow Rate FiO2 07/24/18 08:00 59 20 141/84 (103) 07/24/18 07:42 74 20 99 Room Air 21 07/24/18 07:32 71 22 97 Room Air 21 07/24/18 04:00 62 07/24/18 04:00 97.4 71 18 144/69 (94) 96 07/24/18 00:53 69 18 99 Room Air 21 07/24/18 00:46 63 18 97 Room Air 21 07/24/18 00:00 58 07/24/18 00:00 97.5 73 18 150/73 (98) 97 07/23/18 21:00 Room Air 07/23/18 20:00 97.4 71 18 144/69 (94) 96 07/23/18 20:00 89 07/23/18 19:35 72 18 100 Room Air 21 07/23/18 19:26 71 18 96 Room Air 21 07/23/18 18:57 97.7 07/23/18 16:17 97.7 07/23/18 16:00 98.4 73 20 144/75 (98) 96 07/23/18 15:36 66 07/23/18 13:10 74 18 99 Room Air 21 07/23/18 13:00 74 18 97 Room Air 21 07/23/18 12:00 97.7 82 18 130/80 (97) 98 07/23/18 11:59 60 07/23/18 09:00 Room Air Intake and Output 07/23/18 07/24/18 19:00 07:00 Intake Total 1440 ml Balance 1440 ml Intake Oral 1440 ml # Voids 6 2 Laboratory Tests 07/24/18 07:55: Sodium Level [Pending], Potassium Level [Pending], Chloride Level [Pending], Carbon Dioxide Level [Pending], Blood Urea Nitrogen [Pending], Creatinine [ Pending], Estimat Glomerular Filtration Rate [Pending], Glucose Level [Pending] , Calcium Level [Pending] Height (Feet): 5 Height (Inches): 11.00 Weight (Pounds): 415 General Appearance: no apparent distress, alert EENT: normal ENT inspection Neck: normal alignment, supple Cardiovascular: normal rate, regular rhythm Respiratory/Chest: lungs clear, normal breath sounds Abdomen: non tender, soft Edema: no edema noted Arm (L), no edema noted Arm (R), no edema noted Leg (L), no edema noted Leg (R), no edema noted Pedal (L), no edema noted Pedal (R), no edema noted Generalized Alexandre Maher MD Jul 24, 2018 08:42
[2018-07-24] MEDS: Solu-MEDROL 40mg Inj IVP SCH ×2 (08:48→21:34)
[2018-07-24] MEDS: Heparin 5000 units/ml inj SUBQ SCH ×2 (08:49→21:35)
[2018-07-24 08:50] LABS: ANION GAP 9 mmol/L (5-15); BLOOD UREA NITROGEN 24 mg/dL (7-18); CALCIUM 9.5 MG/DL (8.5-10.1); CARBON DIOXIDE 27 MMOL/L (21-32); CHLORIDE 103 MMOL/L (98-107); CREATININE 1.1 MG/DL (0.55-1.30); POTASSIUM 4.9 MMOL/L (3.5-5.1); SODIUM 139 MMOL/L (136-145)
--- NOTE | 2018-07-24 09:56 | General Progress Note ---
Assessment/Plan Assessment/Plan (1) Lumbar DDD (2) Lumbar Spondylosis (3) Lumbar Radiculopathy (4) Morbid Obesity (5) Right knee pain (6) Right knee OA h/o ORIF Patient will be continued on Morphine and [place]. D/w Dr. Magaña and he concurred. Subjective Date patient seen: Jul 24, 2018 Time patient seen: 08:30 - am Allergies: Coded Allergies: ASPIRIN (Verified Allergy, Unknown, 07/14/18) KETOROLAC (Verified Allergy, Unknown, 07/14/18) PENICILLINS (Verified Allergy, Unknown, 07/14/18) Subjective REVIEW OF SYSTEMS: Denies rash, fever, chills, sweating, dizziness, drowsiness, blurred vision, sore throat, change in weight. No shortness of breath or chest pain. No nausea, vomiting, diarrhea, or blood in the stool or urine. No bowel or bladder incontinence. No dysuria. He is complaining of low back pain and right lower extremity pain. SUBJECTIVE: Patient is in bed pain is a 5/10 and tolerated on the Morphine ER and Morphine IV as needed. He has no new complaints at this time. Objective Last 24 Hour Vital Signs Date Time Temp Pulse Resp B/P (MAP) Pulse Ox O2 Delivery O2 Flow Rate FiO2 07/24/18 08:00 59 20 141/84 (103) 07/24/18 07:42 74 20 99 Room Air 21 07/24/18 07:32 71 22 97 Room Air 21 07/24/18 04:00 62 07/24/18 04:00 97.4 71 18 144/69 (94) 96 07/24/18 00:53 69 18 99 Room Air 21 07/24/18 00:46 63 18 97 Room Air 21 07/24/18 00:00 58 07/24/18 00:00 97.5 73 18 150/73 (98) 97 07/23/18 21:00 Room Air 07/23/18 20:00 97.4 71 18 144/69 (94) 96 07/23/18 20:00 89 07/23/18 19:35 72 18 100 Room Air 21 07/23/18 19:26 71 18 96 Room Air 21 07/23/18 18:57 97.7 07/23/18 16:17 97.7 07/23/18 16:00 98.4 73 20 144/75 (98) 96 07/23/18 15:36 66 07/23/18 13:10 74 18 99 Room Air 21 07/23/18 13:00 74 18 97 Room Air 21 07/23/18 12:00 97.7 82 18 130/80 (97) 98 07/23/18 11:59 60 Intake and Output 07/23/18 07/24/18 19:00 07:00 Intake Total 1440 ml Balance 1440 ml Intake Oral 1440 ml # Voids 6 2 Laboratory Tests 07/24/18 07:55: Sodium Level 139, Potassium Level 4.9, Chloride Level 103, Carbon Dioxide Level 27, Anion Gap 9, Blood Urea Nitrogen 24H, Creatinine 1.1, Estimat Glomerular Filtration Rate > 60, Glucose Level 119H, Calcium Level 9.5 Height (Feet): 5 Height (Inches): 11.00 Weight (Pounds): 415 Objective GENERAL: Alert, awake, and oriented x3. LUNGS: Decreased breath sounds bilaterally. HEART: S1 and S2, regular. ABDOMEN: Obese. EXTREMITIES: No cyanosis. No clubbing. No edema. NEURO: No Focal deficits. Eliezer Nicole Jul 24, 2018 09:56
[2018-07-24] MEDS: MS Contin 15mg tab ORAL SCH ×2 (10:20→18:38)
--- NOTE | 2018-07-24 10:32 | Pulmonology Progress Note ---
Assessment/Plan Assessment/Plan Pulmonary Progress Note HPI 52-year-old male presents ED for evaluation. Coming from residential facility with chest pain. Started about 2 hours prior to arrival. Sudden onset. Pressure, 7 out of 10, nonradiating. Given nitroglycerin 2 with some chest pain improvement. Also notes shortness of breath. Notes history of COPD and CHF. States that his facility does not have his Lasix or albuterol. Denies fevers chills. Denies cough. No other aggravating relieving factors. Denies any other associated symptoms Allergies: ASPIRIN (Verified Allergy, Unknown, 07/14/18) KETOROLAC (Verified Allergy, Unknown, 07/14/18) PENICILLINS (Verified Allergy, Unknown, 07/14/18) Patient History Past Medical History: HTN, [place], CHF, COPD, ADALBERTO, Obesity, seizures, psych hx Past Surgical History: none Pertinent Family History: none Social History: Denies: smoking, alcohol use, drug use Immunizations: UTD Reviewed Nursing Documentation: PMH: Agreed; PSxH: Agreed Review of Systems All Other Systems: negative except mentioned in HPI Physical Exam Vital Signs Noted Date Time Temp Pulse Resp B/P (MAP) Pulse Ox O2 Delivery O2 Flow Rate FiO2 07/21/18 17:04 99.1 80 18 153/87 92 Room Air 07/21/18 17:21 21 General Appearance: no apparent distress, alert, GCS 15, non-toxic, obese Head: normocephalic Eyes: bilateral eye normal inspection, bilateral eye PERRL ENT: normal ENT inspection Neck: normal inspection Respiratory: crackles, wheezing Cardiovascular #1: regular rate, rhythm, no edema Gastrointestinal: normal bowel sounds, non tender, soft, non-distended, no guarding, no rebound Rectal: deferred Genitourinary: no CVA tenderness Musculoskeletal: normal inspection Neurologic: alert, oriented x3, responsive, motor strength/tone normal, sensory intact, speech normal Psychiatric: normal inspection Skin: normal inspection Lymphatic: normal inspection Impression: Chest Pain Chronic obstructive pulmonary disease with exaccerbation Congestive heart failure For r/o ACS HTN CAD, previous HI ADALBERTO Obesity Previous Seizures Depression/Anxiety Plan - Monitored bed - Labs - R/o ACS - HHN - IV Solumedrol weam as tolerated - O2 for O2 sats 90-96% - BiPAP 12/ QHS/PRN - Doxycycline 100mg PO bid - Lasix PRN Labs Test 07/21/18 18:20 White Blood Count 11.2 K/UL (4.8-10.8) Red Blood Count 5.00 M/UL (4.70-6.10) Hemoglobin 16.6 G/DL (14.2-18.0) Hematocrit 49.1 % (42.0-52.0) Mean Corpuscular Volume 98 FL (80-99) Mean Corpuscular Hemoglobin 33.2 PG (27.0-31.0) Mean Corpuscular Hemoglobin Concent 33.8 G/DL (32.0-36.0) Red Cell Distribution Width 12.2 % (11.6-14.8) Platelet Count 214 K/UL (150-450) Mean Platelet Volume 5.9 FL (6.5-10.1) Neutrophils (%) (Auto) 62.7 % (45.0-75.0) Lymphocytes (%) (Auto) 29.3 % (20.0-45.0) Monocytes (%) (Auto) 6.5 % (1.0-10.0) Eosinophils (%) (Auto) 0.7 % (0.0-3.0) Basophils (%) (Auto) 0.9 % (0.0-2.0) Sodium Level 140 MMOL/L (136-145) Potassium Level 4.3 MMOL/L (3.5-5.1) Chloride Level 103 MMOL/L (98-107) Carbon Dioxide Level 27 MMOL/L (21-32) Anion Gap 10 mmol/L (5-15) Blood Urea Nitrogen 33 mg/dL (7-18) Creatinine 1.4 MG/DL (0.55-1.30) Estimat Glomerular Filtration Rate 52.8 mL/min (>60) Glucose Level 92 MG/DL (74-106) Lactic Acid Level 1.40 mmol/L (0.4-2.0) Calcium Level 9.4 MG/DL (8.5-10.1) Total Bilirubin 1.0 MG/DL (0.2-1.0) Aspartate Amino Transf (AST/SGOT) 32 U/L (15-37) Alanine Aminotransferase (ALT/SGPT) 36 U/L (12-78) Alkaline Phosphatase 105 U/L (46-116) Total Creatine Kinase 277 U/L (26-308) Creatine Kinase MB 1.2 NG/ML (0.0-3.6) Creatine Kinase MB Relative Index 0.4 Troponin I 0.000 ng/mL (0.000-0.056) Pro-B-Type Natriuretic Peptide 74 pg/mL (0-125) Total Protein 7.6 G/DL (6.4-8.2) Albumin 3.8 G/DL (3.4-5.0) Globulin 3.8 g/dL Albumin/Globulin Ratio 1.0 (1.0-2.7) EKG Diagnostic Results Rate: normal Rhythm: NSR ST Segments: no acute changes ASA given to the pt in ED: No - allergic to ASA Rhythm Strip Diag. Results EP Interpretation: yes Rhythm: NSR, no PVC's, no ectopy Chest X-Ray Diagnostic Results Chest X-Ray Diagnostic Results : Chest X-Ray Ordered: Yes # of Views/Limited/Complete: 1 View Indication: Shortness of Breath EP Interpretation: Yes Interpretation: no consolidation, no pneumothorax, other - atelectasis lower lung bonilla Subjective ROS Limited/Unobtainable: No Allergies: Coded Allergies: ASPIRIN (Verified Allergy, Unknown, 07/14/18) KETOROLAC (Verified Allergy, Unknown, 07/14/18) PENICILLINS (Verified Allergy, Unknown, 07/14/18) Objective Last 24 Hour Vital Signs Date Time Temp Pulse Resp B/P (MAP) Pulse Ox O2 Delivery O2 Flow Rate FiO2 07/24/18 09:19 97.4 07/24/18 08:00 59 20 141/84 (103) 07/24/18 07:55 69 07/24/18 07:42 74 20 99 Room Air 21 07/24/18 07:32 71 22 97 Room Air 21 07/24/18 04:00 62 07/24/18 04:00 97.4 71 18 144/69 (94) 96 07/24/18 00:53 69 18 99 Room Air 21 07/24/18 00:46 63 18 97 Room Air 21 07/24/18 00:00 58 07/24/18 00:00 97.5 73 18 150/73 (98) 97 07/23/18 21:00 Room Air 07/23/18 20:00 97.4 71 18 144/69 (94) 96 07/23/18 20:00 89 07/23/18 19:35 72 18 100 Room Air 21 07/23/18 19:26 71 18 96 Room Air 21 07/23/18 18:57 97.7 07/23/18 16:00 98.4 73 20 144/75 (98) 96 07/23/18 15:36 66 07/23/18 13:10 74 18 99 Room Air 21 07/23/18 13:00 74 18 97 Room Air 21 07/23/18 12:00 97.7 82 18 130/80 (97) 98 07/23/18 11:59 60 Intake and Output 07/23/18 07/24/18 19:00 07:00 Intake Total 1440 ml Balance 1440 ml Intake Oral 1440 ml # Voids 6 2 Microbiology Date/Time Source Procedure Growth Status 07/21/18 18:20 Blood Blood Culture - Preliminary NO GROWTH AFTER 48 HOURS Resulted 07/21/18 18:20 Blood Blood Culture - Preliminary NO GROWTH AFTER 48 HOURS Resulted 07/22/18 02:00 Nasal Nares MRSA Culture - Final NO METHICILLIN RESISTANT STAPH AUREUS... Complete 07/21/18 18:33 Nasal Nares Influenza Types A,B Antigen (CRISTY) - Final Complete Laboratory Tests 07/24/18 07:55: Sodium Level 139, Potassium Level 4.9, Chloride Level 103, Carbon Dioxide Level 27, Anion Gap 9, Blood Urea Nitrogen 24H, Creatinine 1.1, Estimat Glomerular Filtration Rate > 60, Glucose Level 119H, Calcium Level 9.5 Current Medications Medications (Trade) Dose Ordered Sig/Luis Route PRN Reason Start Time Stop Time Status Last Admin Dose Admin Acetaminophen/ Hydrocodone Bitart ([place] 10/325) 1 tab Q6H PRN ORAL Moderate Pain (Pain Scale 4-6) 07/22/18 09:15 07/29/18 09:14 Albuterol/ Ipratropium (Albuterol/ Ipratropium) 3 ml Q6HRT HHN 07/22/18 19:00 07/27/18 18:59 07/24/18 07:31 Doxycycline Monohydrate (Vibramycin) 100 mg EVERY 12 HOURS ORAL 07/22/18 14:00 07/29/18 13:59 07/24/18 08:48 Heparin Sodium (Porcine) (Heparin 5000 units/ml) 5,000 units EVERY 12 HOURS SUBQ 07/22/18 21:00 08/21/18 20:59 07/24/18 08:49 Methylprednisolone Sodium Succinate (Solu-MEDROL) 40 mg EVERY 12 HOURS IVP 07/22/18 21:00 08/21/18 20:59 07/24/18 08:48 Morphine Sulfate (MS Contin) 15 mg BID ORAL 07/22/18 18:00 07/29/18 17:59 07/24/18 10:20 Morphine Sulfate (Morphine Sulfate) 4 mg Q4H PRN IVP Severe Pain (Pain Scale 7-10) 07/22/18 09:15 07/29/18 09:14 07/24/18 08:49 Nitroglycerin (Ntg) 0.4 mg Q5M PRN SL Prn Chest Pain 07/22/18 22:00 08/21/18 21:59 Regadenoson (Lexiscan) 0.4 mg ONCE PRN IV stress test 07/22/18 22:00 07/24/18 21:59 Elliot Stewart MD Jul 24, 2018 10:32
--- NOTE | 2018-07-24 10:39 | Cardiology Progress Note ---
Assessment/Plan Status: stable Assessment/Plan Assessment/Plan Assessment/Plan (1) Lumbar DDD (2) Lumbar Spondylosis (3) Lumbar Radiculopathy (4) Morbid Obesity (5) Right knee pain (6) Right knee OA h/o ORIF (7) COPD (8) ACS (9) Chest pain -Serial EKG/Troponin -Echocardiogram -Lexiscan cardiolite given hx of [place] in past -Allergic to aspirin -Statin -Plavix -Nitro prn chest pain -Hold heparin -Monitor renal function, hold nephrotoxic medications Subjective Cardiovascular: Reports: no symptoms Respiratory: Reports: no symptoms Gastrointestinal/Abdominal: Reports: no symptoms Genitourinary: Reports: no symptoms Subjective No acute events, vitals stable, echo with normal LV function but dilated IVC and right sided filling pressures, stress test not done yet, no chest pain Objective Last 24 Hour Vital Signs Date Time Temp Pulse Resp B/P (MAP) Pulse Ox O2 Delivery O2 Flow Rate FiO2 07/24/18 09:19 97.4 07/24/18 08:00 59 20 141/84 (103) 07/24/18 07:55 69 07/24/18 07:42 74 20 99 Room Air 21 07/24/18 07:32 71 22 97 Room Air 21 07/24/18 04:00 62 07/24/18 04:00 97.4 71 18 144/69 (94) 96 07/24/18 00:53 69 18 99 Room Air 21 07/24/18 00:46 63 18 97 Room Air 21 07/24/18 00:00 58 07/24/18 00:00 97.5 73 18 150/73 (98) 97 07/23/18 21:00 Room Air 07/23/18 20:00 97.4 71 18 144/69 (94) 96 07/23/18 20:00 89 07/23/18 19:35 72 18 100 Room Air 21 07/23/18 19:26 71 18 96 Room Air 21 07/23/18 18:57 97.7 07/23/18 16:00 98.4 73 20 144/75 (98) 96 07/23/18 15:36 66 07/23/18 13:10 74 18 99 Room Air 21 07/23/18 13:00 74 18 97 Room Air 21 07/23/18 12:00 97.7 82 18 130/80 (97) 98 07/23/18 11:59 60 General Appearance: no apparent distress, alert EENT: PERRL/EOMI, normal ENT inspection, pharynx normal Neck: non-tender, supple Rhythm: NSR Cardiovascular: normal peripheral pulses, normal rate, regular rhythm Respiratory/Chest: chest wall non-tender, lungs clear, normal breath sounds Abdomen: normal bowel sounds, non tender, soft Extremities: normal range of motion, non-tender 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 grossly normal, no motor/sensory deficits Intake and Output 07/23/18 07/24/18 19:00 07:00 Intake Total 1440 ml Balance 1440 ml Intake Oral 1440 ml # Voids 6 2 Laboratory Tests Test 07/24/18 07:55 Sodium Level 139 MMOL/L (136-145) Potassium Level 4.9 MMOL/L (3.5-5.1) Chloride Level 103 MMOL/L (98-107) Carbon Dioxide Level 27 MMOL/L (21-32) Anion Gap 9 mmol/L (5-15) Blood Urea Nitrogen 24 mg/dL (7-18) H Creatinine 1.1 MG/DL (0.55-1.30) Estimat Glomerular Filtration Rate > 60 mL/min (>60) Glucose Level 119 MG/DL (74-106) H Calcium Level 9.5 MG/DL (8.5-10.1) Microbiology Date/Time Source Procedure Growth Status 07/21/18 18:20 Blood Blood Culture - Preliminary NO GROWTH AFTER 48 HOURS Resulted 07/21/18 18:20 Blood Blood Culture - Preliminary NO GROWTH AFTER 48 HOURS Resulted 07/22/18 02:00 Nasal Nares MRSA Culture - Final NO METHICILLIN RESISTANT STAPH AUREUS... Complete 07/21/18 18:33 Nasal Nares Influenza Types A,B Antigen (CRISTY) - Final Complete Elliot Davis MD Jul 24, 2018 10:39
[2018-07-24 12:00] VITALS: BP 125/71
--- NOTE | 2018-07-24 12:40 | NUR ---
CASE MANAGEMENT:REVIEW 07/24/18 SI: ACS. COPD. CHF 96.3 80 20 125/71 99% ON RA TROPONIN(-) IS: IV SOLUMEDROL Q12 VIBRAMYCIN PO Q12 HEPARIN SQ Q12 DUONEB HHN Q6HRS RTC MORPHINE PO BID IV MORPHINE Q4HRS PRN : TELEMETRY STATUS
--- NOTE | 2018-07-24 13:00 | NUR ---
RD ASSESSMENT & RECOMMENDATIONS SEE CARE ACTIVITY FOR COMPLETE ASSESSMENT DAILY ESTIMATED NEEDS: Needs based on obesity, Cardiac, 109kg abw 15-18 kcals/kg 1828-3401 total kcals 1-1.5 g protein/kg 109-163 g total protein per MD mL/kg NUTRITION DIAGNOSIS: Decreased sodium and fat intake needs R/T cardiac dx and morbid obesity as evidenced by h/o CHF dx, elev BP, BMI>50. CURRENT DIET:Regular PO DIET RECOMMENDATIONS: CARDIAC diet ADDITIONAL RECOMMENDATIONS: * Obtain a standing weight as able * Monitor BG on solumedrol w/ SSI
[2018-07-24 15:43] VITALS: BP 117/62
--- NOTE | 2018-07-24 19:28 | NUR ---
HAND-OFF: Report given to MICAELA Monsalve.
--- NOTE | 2018-07-24 19:30 | NUR ---
NURSE NOTES: Received report from MICAELA Pretty. Pt is resting in bed. In no acute distress. IV line intact and patent. Bed in lowest position, call light within reach. Will continue plan of care.
--- NOTE | 2018-07-24 20:27 | General Progress Note ---
Assessment/Plan Assessment/Plan ASSESSMENT AND RECOMMENDATIONS # Leukocytosis. Likely related to underlying infection versus from steriods administreaton --> Monitor and trend wbc for improvement. --> Peripheral has been reviewed, no major abnml --> Medications have been reviewed --> Imaging has been reviewed --> Blood cultures and urine cultures prn --> has been started on abx, empiric treatment as well # Chest pain. Cardiology is following, appreciate recs. --> Nitro prn. --> lexican as per cards # CHF. # COPD. Pulmonary is following, appreciate recs. --> O2 for O2 sats 90-96% --> BiPAP 07/03 QHS/PRN # ACS. Time of service may not reflect exactly time of encounter Subjective Constitutional: Denies: no symptoms, chills, diaphoresis, fever, malaise, weakness, other HEENT: Denies: no symptoms, eye pain, blurred vision, tearing, double vision, ear pain, ear discharge, nose pain, nose congestion, throat pain, throat swelling, mouth pain, mouth swelling, other Cardiovascular: Denies: no symptoms, chest pain, edema, irregular heart rate, lightheadedness, palpitations, syncope, other Respiratory: Denies: no symptoms, cough, orthopnea, shortness of breath, SOB with excertion, SOB at rest, sputum, stridor, wheezing, other Gastrointestinal/Abdominal: Denies: no symptoms, abdomen distended, abdominal pain, black stools, tarry stools, blood in stool, constipated, diarrhea, difficulty swallowing, nausea, poor appetite, poor fluid intake, rectal bleeding , vomiting, other Genitourinary: Denies: no symptoms, burning, discharge, frequency, flank pain, hematuria, incontinence, pain, urgency, other Neurologic/Psychiatric: Denies: no symptoms, anxiety, depressed, emotional problems, headache, numbness, paresthesia, pre-existing deficit, seizure, tingling, tremors, weakness, other Endocrine: Denies: no symptoms, excessive sweating, flushing, intolerance to cold, intolerance to heat, increased hunger, increased thirst, increased urine, unexplained weight gain, unexplained weight loss, other Hematologic/Lymphatic: Denies: no symptoms, anemia, easy bleeding, easy bruising, other Allergies: Coded Allergies: ASPIRIN (Verified Allergy, Unknown, 07/14/18) KETOROLAC (Verified Allergy, Unknown, 07/14/18) PENICILLINS (Verified Allergy, Unknown, 07/14/18) Subjective 07/23: no events, chest pain resolved, feeling better, cr improved as well, no complaints 07/24: no events, meds adjusted on steriods, labs reviewed Objective Last 24 Hour Vital Signs Date Time Temp Pulse Resp B/P (MAP) Pulse Ox O2 Delivery O2 Flow Rate FiO2 07/24/18 19:08 72 18 99 Room Air 21 07/24/18 19:08 98.1 07/24/18 18:58 70 18 99 Room Air 21 07/24/18 18:05 98.1 07/24/18 15:43 98.1 88 20 117/62 (80) 07/24/18 15:11 76 07/24/18 13:19 71 22 99 Room Air 21 07/24/18 13:12 78 22 96 Room Air 21 07/24/18 12:00 96.3 80 20 125/71 (89) 07/24/18 11:45 64 07/24/18 09:00 Room Air 07/24/18 08:00 59 20 141/84 (103) 07/24/18 07:55 69 07/24/18 07:42 74 20 99 Room Air 21 07/24/18 07:32 71 22 97 Room Air 21 07/24/18 04:00 62 07/24/18 04:00 97.4 71 18 144/69 (94) 96 07/24/18 00:53 69 18 99 Room Air 21 07/24/18 00:46 63 18 97 Room Air 21 07/24/18 00:00 58 07/24/18 00:00 97.5 73 18 150/73 (98) 97 07/23/18 21:00 Room Air Intake and Output 07/23/18 07/24/18 19:00 07:00 Intake Total 1440 ml Balance 1440 ml Intake Oral 1440 ml # Voids 6 2 Laboratory Tests 07/24/18 07:55: Sodium Level 139, Potassium Level 4.9, Chloride Level 103, Carbon Dioxide Level 27, Anion Gap 9, Blood Urea Nitrogen 24H, Creatinine 1.1, Estimat Glomerular Filtration Rate > 60, Glucose Level 119H, Calcium Level 9.5 Height (Feet): 5 Height (Inches): 11.00 Weight (Pounds): 415 General Appearance: no apparent distress Neck: supple Respiratory/Chest: lungs clear Abdomen: no mass Edema: mild edema Neurologic: alert Skin: warm/dry Jay Wilson MD Jul 24, 2018 20:27
[2018-07-24 21:00] VITALS: BP 131/71
[2018-07-25] VITALS: BP 125/70
[2018-07-25] MEDS: Albuterol/Ipratropium 3ml neb HHN SCH ×4 (01:00→19:00)
[2018-07-25] MEDS: Morphine Sulfate 4mg/ml Inj (IV/IM USE ONLY) IVP PRN ×6 (01:46→22:41)
[2018-07-25 04:00] VITALS: BP 133/78
--- NOTE | 2018-07-25 07:05 | NUR ---
HAND-OFF: Report given to MICAELA Pretty.
--- NOTE | 2018-07-25 07:07 | Cardiology Report ---
APPROVED REPORT EXAM: Two-dimensional and M-mode echocardiogram with Doppler and color Doppler. INDICATION LV function M-Mode DIMENSIONS IVSd1.3 (0.7-1.1cm)Left Atrium (MM)4.4 (1.6-4.0cm) LVDd4.9 (3.5-5.6cm)Aortic Root3.8 (2.0-3.7cm) PWd1.6 (0.7-1.1cm)Aortic Cusp Exc.2.2 (1.5-2.0cm) LVDs3.7 (2.5-4.0cm) PWs1.7 cm Technically difficult study due to pts body habitus. Normal left ventricular chamber size, systolic function and wall motion to extent visualized. Left ventricular ejection fraction estimated to be 55-60 %. Study quality precludes accurate assessment of regional wall motion. Mild left ventricular hypertrophy. Anterior Echo-free space, may be due to pericardial fat or effusion. Moderate bi-atrial enlargement. Right ventricular chamber size is within normal limits. Mild focal aortic valve sclerosis with adequate cusp excursion. Mild aortic root dilatation. MIldly thickened mitral valve leaflets with normal excursion. Mitral annulus and aortic root calcification. Pulmonic valve not well visualized. Normal tricuspid valve structure. IVC dilated at 2.4 cm with physiologic collapse suggestive of mildly increased RA pressure. A color flow and spectral Doppler study was performed and revealed: Trace mitral regurgitation. Mitral inflow indicates normal left ventricular diastolic function. Trace tricuspid regurgitation. Tricuspid systolic velocities suggests peak right ventricular systolic pressure of 25 mmHg.
--- NOTE | 2018-07-25 07:20 | NUR ---
NURSE NOTES: I received the patient resting in bed. Patient alert and oriented x4. Patient does not display any signs of distress or SOB. Bed in the lowest position and call light within reach. I will continue to monitor the patient and implement care.
[2018-07-25 08:00] VITALS: BP 146/82
[2018-07-25] MEDS: Solu-MEDROL 40mg Inj IVP SCH ×2 (08:13→21:00)
[2018-07-25] MEDS: MS Contin 15mg tab ORAL SCH ×2 (08:14→17:21)
[2018-07-25] MEDS: Heparin 5000 units/ml inj SUBQ SCH ×2 (08:15→21:37)
--- NOTE | 2018-07-25 08:49 | Nephrology Progress Note ---
Assessment/Plan Assessment/Plan A/P 1) CKD 3B- Cr 1.1 - stable. 2) ACS/ - awaiting transfer to [facility] 3) COPD- per pulm mgmt Subjective Date patient seen: Jul 25, 2018 Time patient seen: 08:47 ROS Limited/Unobtainable: No Cardiovascular: Reports: chest pain Allergies: Coded Allergies: ASPIRIN (Verified Allergy, Unknown, 07/14/18) KETOROLAC (Verified Allergy, Unknown, 07/14/18) PENICILLINS (Verified Allergy, Unknown, 07/14/18) Subjective Patient awaiting transfer to [facility] Objective Last 24 Hour Vital Signs Date Time Temp Pulse Resp B/P (MAP) Pulse Ox O2 Delivery O2 Flow Rate FiO2 07/25/18 07:15 74 18 98 Room Air 21 07/25/18 07:10 61 18 98 Room Air 21 07/25/18 04:00 97.5 86 18 133/78 (96) 96 07/25/18 04:00 74 07/25/18 01:05 Room Air 07/25/18 01:04 Room Air 07/25/18 00:00 97.7 85 18 125/70 (88) 97 07/25/18 00:00 65 07/24/18 21:00 Room Air 07/24/18 21:00 97.8 86 20 131/71 (91) 97 07/24/18 20:00 60 07/24/18 19:08 72 18 99 Room Air 21 07/24/18 19:08 98.1 07/24/18 18:58 70 18 99 Room Air 21 07/24/18 18:05 98.1 07/24/18 15:43 98.1 88 20 117/62 (80) 07/24/18 15:11 76 07/24/18 13:19 71 22 99 Room Air 21 07/24/18 13:12 78 22 96 Room Air 21 07/24/18 12:00 96.3 80 20 125/71 (89) 07/24/18 11:45 64 07/24/18 09:00 Room Air Intake and Output 07/24/18 07/25/18 19:00 07:00 Intake Total 910 ml 600 ml Balance 910 ml 600 ml Intake Oral 910 ml Other 600 ml # Voids 6 2 Height (Feet): 5 Height (Inches): 11.00 Weight (Pounds): 415 General Appearance: no apparent distress, alert EENT: normal ENT inspection Neck: normal alignment, supple Cardiovascular: normal rate, regular rhythm Respiratory/Chest: lungs clear, normal breath sounds Abdomen: non tender, soft Edema: no edema noted Arm (L), no edema noted Arm (R), no edema noted Leg (L), no edema noted Leg (R), no edema noted Pedal (L), no edema noted Pedal (R), no edema noted Generalized Alexandre Maher MD Jul 25, 2018 08:49
--- NOTE | 2018-07-25 09:08 | Cardiology Progress Note ---
Assessment/Plan Status: stable Assessment/Plan Assessment/Plan Assessment/Plan (1) Lumbar DDD (2) Lumbar Spondylosis (3) Lumbar Radiculopathy (4) Morbid Obesity (5) Right knee pain (6) Right knee OA h/o ORIF (7) COPD (8) ACS (9) Chest pain -Serial EKG/Troponin -Echocardiogram -> Left ventricular ejection fraction estimated to be 55-60 %, elevated right atrial pressures -Transfer to [facility] for cardiac cath -Allergic to aspirin -Continue Statin -Plavix -Nitro prn chest pain -Hold heparin, tropnin negative -Start ranexa for chronic angina -Monitor renal function, hold nephrotoxic medications Subjective Cardiovascular: Reports: no symptoms Respiratory: Reports: no symptoms Gastrointestinal/Abdominal: Reports: no symptoms Genitourinary: Reports: no symptoms Subjective No acute events, vitals stable, echo with normal LV function but dilated IVC and right sided filling pressures, stress test not done yet, no chest pain Lexiscan can not be done due to patient size and body habitus, plan to transfer for cardiac cath Objective Last 24 Hour Vital Signs Date Time Temp Pulse Resp B/P (MAP) Pulse Ox O2 Delivery O2 Flow Rate FiO2 07/25/18 08:00 82 18 146/82 (103) 100 07/25/18 07:15 74 18 98 Room Air 21 07/25/18 07:10 61 18 98 Room Air 21 07/25/18 04:00 97.5 86 18 133/78 (96) 96 07/25/18 04:00 74 07/25/18 01:05 Room Air 07/25/18 01:04 Room Air 07/25/18 00:00 97.7 85 18 125/70 (88) 97 07/25/18 00:00 65 07/24/18 21:00 Room Air 07/24/18 21:00 97.8 86 20 131/71 (91) 97 07/24/18 20:00 60 07/24/18 19:08 72 18 99 Room Air 21 07/24/18 19:08 98.1 07/24/18 18:58 70 18 99 Room Air 21 07/24/18 18:05 98.1 07/24/18 15:43 98.1 88 20 117/62 (80) 07/24/18 15:11 76 07/24/18 13:19 71 22 99 Room Air 21 07/24/18 13:12 78 22 96 Room Air 21 07/24/18 12:00 96.3 80 20 125/71 (89) 07/24/18 11:45 64 General Appearance: no apparent distress, alert EENT: PERRL/EOMI, normal ENT inspection, TMs normal, pharynx normal Neck: non-tender, normal alignment, supple, normal inspection, no JVD Rhythm: NSR Cardiovascular: normal peripheral pulses, normal rate, regular rhythm Respiratory/Chest: chest wall non-tender, lungs clear, normal breath sounds, no respiratory distress Abdomen: normal bowel sounds, non tender, soft, no organomegaly Extremities: normal range of motion, non-tender, normal inspection Intake and Output 07/24/18 07/25/18 19:00 07:00 Intake Total 910 ml 600 ml Balance 910 ml 600 ml Intake Oral 910 ml Other 600 ml # Voids 6 2 Elliot Davis MD Jul 25, 2018 09:08
[2018-07-25 12:00] VITALS: BP 141/95
--- NOTE | 2018-07-25 14:32 | General Progress Note ---
Assessment/Plan Status: stable Assessment/Plan ASSESSMENT AND RECOMMENDATIONS # Leukocytosis. Likely related to underlying infection versus from steroid administration --> Monitor and trend wbc for improvement. --> Peripheral has been reviewed, no major abnml --> Medications have been reviewed --> Imaging has been reviewed --> Blood cultures and urine cultures prn --> has been started on abx, empiric treatment as well # Chest pain. Cardiology is following, appreciate recs. --> Nitro prn. --> lexican as per cards # CHF. # COPD. Pulmonary is following, appreciate recs. --> O2 for O2 sats 90-96% --> BiPAP 07/03 QHS/PRN # ACS. Time of service may not reflect exactly time of encounter Subjective Date patient seen: Jul 25, 2018 Allergies: Coded Allergies: ASPIRIN (Verified Allergy, Unknown, 07/14/18) KETOROLAC (Verified Allergy, Unknown, 07/14/18) PENICILLINS (Verified Allergy, Unknown, 07/14/18) All Systems: reviewed and negative except above Subjective 07/23: no events, chest pain resolved, feeling better, cr improved as well, no complaints 07/24: no events, meds adjusted on steroids, labs reviewed 07/25: Pt awake and alert. No acute events. No sob. VS stable. Objective Last 24 Hour Vital Signs Date Time Temp Pulse Resp B/P (MAP) Pulse Ox O2 Delivery O2 Flow Rate FiO2 07/25/18 14:29 80 18 98 Room Air 21 07/25/18 14:22 74 18 97 Room Air 07/25/18 12:00 97.7 68 18 141/95 (110) 97 07/25/18 11:42 62 07/25/18 10:31 97.5 07/25/18 09:00 Room Air 07/25/18 08:44 97.5 07/25/18 08:00 82 18 146/82 (103) 100 07/25/18 07:47 74 07/25/18 07:15 74 18 98 Room Air 21 07/25/18 07:10 61 18 98 Room Air 21 07/25/18 04:00 97.5 86 18 133/78 (96) 96 07/25/18 04:00 74 07/25/18 01:05 Room Air 07/25/18 01:04 Room Air 07/25/18 00:00 97.7 85 18 125/70 (88) 97 07/25/18 00:00 65 07/24/18 21:00 Room Air 07/24/18 21:00 97.8 86 20 131/71 (91) 97 07/24/18 20:00 60 07/24/18 19:08 72 18 99 Room Air 21 07/24/18 18:58 70 18 99 Room Air 21 07/24/18 15:43 98.1 88 20 117/62 (80) 07/24/18 15:11 76 Intake and Output 07/24/18 07/25/18 19:00 07:00 Intake Total 910 ml 600 ml Balance 910 ml 600 ml Intake Oral 910 ml Other 600 ml # Voids 6 2 Height (Feet): 5 Height (Inches): 11.00 Weight (Pounds): 415 Jay Wilson MD Jul 25, 2018 14:32
[2018-07-25 16:00] VITALS: BP 121/60
--- NOTE | 2018-07-25 18:00 | Pulmonology Progress Note ---
Assessment/Plan Assessment/Plan Pulmonary Progress Note HPI 52-year-old male presents ED for evaluation. Coming from [facility] facility with chest pain. Started about 2 hours prior to arrival. Sudden onset. Pressure, 7 out of 10, nonradiating. Given nitroglycerin 2 with some chest pain improvement. Also notes shortness of breath. Notes history of COPD and CHF. States that his facility does not have his Lasix or albuterol. Denies fevers chills. Denies cough. No other aggravating relieving factors. Denies any other associated symptoms Allergies: ASPIRIN (Verified Allergy, Unknown, 07/14/18) KETOROLAC (Verified Allergy, Unknown, 07/14/18) PENICILLINS (Verified Allergy, Unknown, 07/14/18) Patient History Past Medical History: HTN, ND, CHF, COPD, ADALBERTO, Obesity, seizures, psych hx Past Surgical History: none Pertinent Family History: none Social History: Denies: smoking, alcohol use, drug use Immunizations: UTD Reviewed Nursing Documentation: PMH: Agreed; PSxH: Agreed Review of Systems All Other Systems: negative except mentioned in HPI Physical Exam Vital Signs Noted Date Time Temp Pulse Resp B/P (MAP) Pulse Ox O2 Delivery O2 Flow Rate FiO2 07/21/18 17:04 99.1 80 18 153/87 92 Room Air 07/21/18 17:21 21 General Appearance: no apparent distress, alert, GCS 15, non-toxic, obese Head: normocephalic Eyes: bilateral eye normal inspection, bilateral eye PERRL ENT: normal ENT inspection Neck: normal inspection Respiratory: crackles, wheezing Cardiovascular #1: regular rate, rhythm, no edema Gastrointestinal: normal bowel sounds, non tender, soft, non-distended, no guarding, no rebound Rectal: deferred Genitourinary: no CVA tenderness Musculoskeletal: normal inspection Neurologic: alert, oriented x3, responsive, motor strength/tone normal, sensory intact, speech normal Psychiatric: normal inspection Skin: normal inspection Lymphatic: normal inspection Impression: Chest Pain Chronic obstructive pulmonary disease with exaccerbation Congestive heart failure For r/o ACS HTN CAD, previous ND ADALBERTO Obesity Previous Seizures Depression/Anxiety Plan - Monitored bed - Labs - R/o ACS - HHN - IV Solumedrol weam as tolerated - O2 for O2 sats 90-96% - BiPAP 12/ QHS/PRN - Doxycycline 100mg PO bid - Lasix PRN Labs Test 07/21/18 18:20 White Blood Count 11.2 K/UL (4.8-10.8) Red Blood Count 5.00 M/UL (4.70-6.10) Hemoglobin 16.6 G/DL (14.2-18.0) Hematocrit 49.1 % (42.0-52.0) Mean Corpuscular Volume 98 FL (80-99) Mean Corpuscular Hemoglobin 33.2 PG (27.0-31.0) Mean Corpuscular Hemoglobin Concent 33.8 G/DL (32.0-36.0) Red Cell Distribution Width 12.2 % (11.6-14.8) Platelet Count 214 K/UL (150-450) Mean Platelet Volume 5.9 FL (6.5-10.1) Neutrophils (%) (Auto) 62.7 % (45.0-75.0) Lymphocytes (%) (Auto) 29.3 % (20.0-45.0) Monocytes (%) (Auto) 6.5 % (1.0-10.0) Eosinophils (%) (Auto) 0.7 % (0.0-3.0) Basophils (%) (Auto) 0.9 % (0.0-2.0) Sodium Level 140 MMOL/L (136-145) Potassium Level 4.3 MMOL/L (3.5-5.1) Chloride Level 103 MMOL/L (98-107) Carbon Dioxide Level 27 MMOL/L (21-32) Anion Gap 10 mmol/L (5-15) Blood Urea Nitrogen 33 mg/dL (7-18) Creatinine 1.4 MG/DL (0.55-1.30) Estimat Glomerular Filtration Rate 52.8 mL/min (>60) Glucose Level 92 MG/DL (74-106) Lactic Acid Level 1.40 mmol/L (0.4-2.0) Calcium Level 9.4 MG/DL (8.5-10.1) Total Bilirubin 1.0 MG/DL (0.2-1.0) Aspartate Amino Transf (AST/SGOT) 32 U/L (15-37) Alanine Aminotransferase (ALT/SGPT) 36 U/L (12-78) Alkaline Phosphatase 105 U/L (46-116) Total Creatine Kinase 277 U/L (26-308) Creatine Kinase MB 1.2 NG/ML (0.0-3.6) Creatine Kinase MB Relative Index 0.4 Troponin I 0.000 ng/mL (0.000-0.056) Pro-B-Type Natriuretic Peptide 74 pg/mL (0-125) Total Protein 7.6 G/DL (6.4-8.2) Albumin 3.8 G/DL (3.4-5.0) Globulin 3.8 g/dL Albumin/Globulin Ratio 1.0 (1.0-2.7) EKG Diagnostic Results Rate: normal Rhythm: NSR ST Segments: no acute changes ASA given to the pt in ED: No - allergic to ASA Rhythm Strip Diag. Results EP Interpretation: yes Rhythm: NSR, no PVC's, no ectopy Chest X-Ray Diagnostic Results Chest X-Ray Diagnostic Results : Chest X-Ray Ordered: Yes # of Views/Limited/Complete: 1 View Indication: Shortness of Breath EP Interpretation: Yes Interpretation: no consolidation, no pneumothorax, other - atelectasis lower lung bonilla Subjective ROS Limited/Unobtainable: No Allergies: Coded Allergies: ASPIRIN (Verified Allergy, Unknown, 07/14/18) KETOROLAC (Verified Allergy, Unknown, 07/14/18) PENICILLINS (Verified Allergy, Unknown, 07/14/18) Objective Last 24 Hour Vital Signs Date Time Temp Pulse Resp B/P (MAP) Pulse Ox O2 Delivery O2 Flow Rate FiO2 07/25/18 16:00 98.4 92 18 121/60 (80) 95 07/25/18 15:43 89 07/25/18 15:00 97.7 07/25/18 14:29 80 18 98 Room Air 21 07/25/18 14:22 74 18 97 Room Air 21 07/25/18 12:00 97.7 68 18 141/95 (110) 97 07/25/18 11:42 62 07/25/18 09:00 Room Air 07/25/18 08:44 97.5 07/25/18 08:00 82 18 146/82 (103) 100 07/25/18 07:47 74 07/25/18 07:15 74 18 98 Room Air 21 07/25/18 07:10 61 18 98 Room Air 21 07/25/18 04:00 97.5 86 18 133/78 (96) 96 07/25/18 04:00 74 07/25/18 01:05 Room Air 07/25/18 01:04 Room Air 07/25/18 00:00 97.7 85 18 125/70 (88) 97 07/25/18 00:00 65 07/24/18 21:00 Room Air 07/24/18 21:00 97.8 86 20 131/71 (91) 97 07/24/18 20:00 60 07/24/18 19:08 72 18 99 Room Air 21 07/24/18 18:58 70 18 99 Room Air 21 Intake and Output 07/24/18 07/25/18 19:00 07:00 Intake Total 910 ml 600 ml Balance 910 ml 600 ml Intake Oral 910 ml Other 600 ml # Voids 6 2 Current Medications Medications (Trade) Dose Ordered Sig/Luis Route PRN Reason Start Time Stop Time Status Last Admin Dose Admin Acetaminophen/ Hydrocodone Bitart ([place] 10/325) 1 tab Q6H PRN ORAL Moderate Pain (Pain Scale 4-6) 07/22/18 09:15 07/29/18 09:14 Albuterol/ Ipratropium (Albuterol/ Ipratropium) 3 ml Q6HRT HHN 07/22/18 19:00 07/27/18 18:59 07/25/18 14:21 Doxycycline Monohydrate (Vibramycin) 100 mg EVERY 12 HOURS ORAL 07/22/18 14:00 07/29/18 13:59 07/25/18 08:13 Heparin Sodium (Porcine) (Heparin 5000 units/ml) 5,000 units EVERY 12 HOURS SUBQ 07/22/18 21:00 08/21/18 20:59 07/25/18 08:15 Levetiracetam (Keppra) 500 mg Q12HR ORAL 07/24/18 21:00 08/23/18 20:59 07/25/18 08:14 Methylprednisolone Sodium Succinate (Solu-MEDROL) 40 mg EVERY 12 HOURS IVP 07/22/18 21:00 08/21/18 20:59 07/25/18 08:13 Morphine Sulfate (MS Contin) 15 mg BID ORAL 07/22/18 18:00 07/29/18 17:59 07/25/18 17:21 Morphine Sulfate (Morphine Sulfate) 4 mg Q4H PRN IVP Severe Pain (Pain Scale 7-10) 07/22/18 09:15 07/29/18 09:14 07/25/18 14:30 Nitroglycerin (Ntg) 0.4 mg Q5M PRN SL Prn Chest Pain 07/22/18 22:00 08/21/18 21:59 Ranolazine (Ranexa ER 500mg) 500 mg Q12HR ORAL 07/25/18 21:00 08/24/18 20:59 Elliot Stewart MD Jul 25, 2018 18:00
--- NOTE | 2018-07-25 19:25 | NUR ---
HAND-OFF: Report given to MICAELA Rios.
--- NOTE | 2018-07-25 19:26 | NUR ---
NURSE NOTES: Report received from MICAELA Pretty. Pt A/Ox4. Ambulatory with steady gait. monitoring and evaluation advisor shows SR. Pt on RA. Shows no signs of cardiac or respiratory distress. Pt on a regular diet. Last BM was 07/24. No skin issues noted. Pt has a RH 22 gauge, saline-locked. Bed in lowest position, call light within reach. Will continue to monitor and with pt's plan of care.
[2018-07-25 20:00] VITALS: BP 124/63
[2018-07-25] MEDS: Ranolazine 500mg tab ORAL SCH (21:00)
[2018-07-26] VITALS (7 sets, daily range): BP systolic 106–134; BP diastolic 41–81
[2018-07-26] MEDS: Albuterol/Ipratropium 3ml neb HHN SCH ×4 (01:00→19:48)
[2018-07-26] MEDS: Morphine Sulfate 4mg/ml Inj (IV/IM USE ONLY) IVP PRN ×5 (02:45→19:48)
--- NOTE | 2018-07-26 07:25 | NUR ---
HAND-OFF: Report given to MICAELA Deal. Pt is in stable condition; plan of care endorsed.
--- NOTE | 2018-07-26 07:26 | NUR ---
NURSE NOTES: Received report from MICAELA Kowalski. Pt in stable condition with pain medicine given previous nurse. Pt resting in bed comfortably. Bed in low and locked position, call light within reach, bedside table within reach. Continue to monitor.
--- NOTE | 2018-07-26 08:29 | Nephrology Progress Note ---
Assessment/Plan Assessment/Plan A/P 1) CKD 3B- Cr 1.1 - stable. Recollect labs in am 2) ACS/ - awaiting transfer to [facility] 3) COPD- per pulm mgmt Will See patient MWF Subjective Date patient seen: Jul 26, 2018 Time patient seen: 08:26 ROS Limited/Unobtainable: No Allergies: Coded Allergies: ASPIRIN (Verified Allergy, Unknown, 07/14/18) KETOROLAC (Verified Allergy, Unknown, 07/14/18) PENICILLINS (Verified Allergy, Unknown, 07/14/18) Subjective Patient awaiting transfer to [facility]. Declined am labs until tomorrow Objective Last 24 Hour Vital Signs Date Time Temp Pulse Resp B/P (MAP) Pulse Ox O2 Delivery O2 Flow Rate FiO2 07/26/18 07:25 77 20 98 Room Air 21 07/26/18 07:20 67 18 97 Room Air 21 07/26/18 04:00 64 07/26/18 04:00 97.5 71 18 106/48 (67) 97 07/26/18 02:05 Room Air 21 07/26/18 02:05 Room Air 21 07/26/18 00:00 97.7 68 18 124/75 (91) 96 07/26/18 00:00 65 07/25/18 21:00 Room Air 07/25/18 20:00 97.7 67 18 124/63 (83) 97 07/25/18 20:00 87 07/25/18 19:48 Room Air 21 07/25/18 19:48 Room Air 21 07/25/18 19:11 98.4 07/25/18 17:51 98.4 07/25/18 16:00 98.4 92 18 121/60 (80) 95 07/25/18 15:43 89 07/25/18 14:29 80 18 98 Room Air 21 07/25/18 14:22 74 18 97 Room Air 21 07/25/18 12:00 97.7 68 18 141/95 (110) 97 07/25/18 11:42 62 07/25/18 09:00 Room Air Intake and Output 07/25/18 07/26/18 18:59 06:59 Intake Total 1500 ml 400 ml Balance 1500 ml 400 ml Intake Oral 1500 ml 400 ml # Voids 5 4 Height (Feet): 5 Height (Inches): 11.00 Weight (Pounds): 415 General Appearance: no apparent distress, alert EENT: normal ENT inspection, TMs normal Neck: normal alignment, supple Cardiovascular: normal rate, regular rhythm Respiratory/Chest: lungs clear, normal breath sounds Abdomen: non tender, soft Edema: no edema noted Arm (L), no edema noted Arm (R), no edema noted Leg (L), no edema noted Leg (R), no edema noted Pedal (L), no edema noted Pedal (R), no edema noted Generalized Alexandre Maher MD Jul 26, 2018 08:29
[2018-07-26] MEDS: Heparin 5000 units/ml inj SUBQ SCH ×2 (09:00→21:00)
--- NOTE | 2018-07-26 09:42 | Cardiology Progress Note ---
Assessment/Plan Status: stable Assessment/Plan Assessment/Plan Assessment/Plan (1) Lumbar DDD (2) Lumbar Spondylosis (3) Lumbar Radiculopathy (4) Morbid Obesity (5) Right knee pain (6) Right knee OA h/o ORIF (7) COPD (8) ACS (9) Chest pain -Serial EKG/Troponin -Echocardiogram -> Left ventricular ejection fraction estimated to be 55-60 %, elevated right atrial pressures -Transfer to [facility] for [facility] cath -Allergic to aspirin -Continue Statin -Plavix -Nitro prn chest pain -Hold heparin, troponin negative -Start ranexa for chronic angina -Monitor renal function, hold nephrotoxic medications Subjective Cardiovascular: Reports: no symptoms Respiratory: Reports: no symptoms Gastrointestinal/Abdominal: Reports: no symptoms Genitourinary: Reports: no symptoms Subjective No acute events, vitals stable, echo with normal LV function but dilated IVC and right sided filling pressures, stress test not done yet, no chest pain Lexiscan can not be done due to patient size and body habitus, plan to transfer for cardiac cath Objective Last 24 Hour Vital Signs Date Time Temp Pulse Resp B/P (MAP) Pulse Ox O2 Delivery O2 Flow Rate FiO2 07/26/18 08:00 97.3 89 20 106/41 (62) 95 07/26/18 07:25 77 20 98 Room Air 21 07/26/18 07:20 67 18 97 Room Air 21 07/26/18 04:00 64 07/26/18 04:00 97.5 71 18 106/48 (67) 97 07/26/18 02:05 Room Air 21 07/26/18 02:05 Room Air 21 07/26/18 00:00 97.7 68 18 124/75 (91) 96 07/26/18 00:00 65 07/25/18 21:00 Room Air 07/25/18 20:00 97.7 67 18 124/63 (83) 97 07/25/18 20:00 87 07/25/18 19:48 Room Air 21 07/25/18 19:48 Room Air 21 07/25/18 19:11 98.4 07/25/18 17:51 98.4 07/25/18 16:00 98.4 92 18 121/60 (80) 95 07/25/18 15:43 89 07/25/18 14:29 80 18 98 Room Air 21 07/25/18 14:22 74 18 97 Room Air 21 07/25/18 12:00 97.7 68 18 141/95 (110) 97 07/25/18 11:42 62 General Appearance: no apparent distress, alert EENT: PERRL/EOMI, normal ENT inspection Neck: non-tender, normal alignment, supple, normal inspection Rhythm: NSR Cardiovascular: normal peripheral pulses, normal rate, regular rhythm Respiratory/Chest: chest wall non-tender, lungs clear Abdomen: normal bowel sounds, non tender, soft, no organomegaly Extremities: normal range of motion, non-tender Neurologic: water purification chemist II-XII grossly normal, no motor/sensory deficits Intake and Output 07/25/18 07/26/18 19:00 07:00 Intake Total 1500 ml 400 ml Balance 1500 ml 400 ml Intake Oral 1500 ml 400 ml # Voids 5 4 Elliot Davis MD Jul 26, 2018 09:42
[2018-07-26] MEDS: Ranolazine 500mg tab ORAL SCH ×2 (09:46→21:21)
[2018-07-26] MEDS: Solu-MEDROL 40mg Inj IVP SCH ×2 (09:47→21:21)
[2018-07-26] MEDS: MS Contin 15mg tab ORAL SCH ×2 (09:47→17:55)
--- NOTE | 2018-07-26 13:00 | Pulmonology Progress Note ---
Assessment/Plan Assessment/Plan Pulmonary Progress Note HPI 52-year-old male presents ED for evaluation. Coming from [facility] facility with chest pain. Started about 2 hours prior to arrival. Sudden onset. Pressure, 7 out of 10, nonradiating. Given nitroglycerin 2 with some chest pain improvement. Also notes shortness of breath. Notes history of COPD and CHF. States that his facility does not have his Lasix or albuterol. Denies fevers chills. Denies cough. No other aggravating relieving factors. Denies any other associated symptoms No SOB LVEF 55-60% Allergies: ASPIRIN (Verified Allergy, Unknown, 07/14/18) KETOROLAC (Verified Allergy, Unknown, 07/14/18) PENICILLINS (Verified Allergy, Unknown, 07/14/18) Patient History Past Medical History: HTN, MA, CHF, COPD, ADALBERTO, Obesity, seizures, psych hx Past Surgical History: none Pertinent Family History: none Social History: Denies: smoking, alcohol use, drug use Immunizations: UTD Reviewed Nursing Documentation: PMH: Agreed; PSxH: Agreed Review of Systems All Other Systems: negative except mentioned in HPI Physical Exam Vital Signs Noted Date Time Temp Pulse Resp B/P (MAP) Pulse Ox O2 Delivery O2 Flow Rate FiO2 07/21/18 17:04 99.1 80 18 153/87 92 Room Air 07/21/18 17:21 21 General Appearance: no apparent distress, alert, GCS 15, non-toxic, obese Head: normocephalic Eyes: bilateral eye normal inspection, bilateral eye PERRL ENT: normal ENT inspection Neck: normal inspection Respiratory: crackles, wheezing Cardiovascular #1: regular rate, rhythm, no edema Gastrointestinal: normal bowel sounds, non tender, soft, non-distended, no guarding, no rebound Rectal: deferred Genitourinary: no CVA tenderness Musculoskeletal: normal inspection Neurologic: alert, oriented x3, responsive, motor strength/tone normal, sensory intact, speech normal Psychiatric: normal inspection Skin: normal inspection Lymphatic: normal inspection Impression: Chest Pain Chronic obstructive pulmonary disease with exaccerbation Congestive heart failure For r/o ACS HTN CAD, previous MA ADALBERTO Obesity Previous Seizures Depression/Anxiety Plan - Monitored bed - Labs - R/o ACS - HHN - IV Solumedrol weam as tolerated - O2 for O2 sats 90-96% - BiPAP 12/7 QHS/PRN - Doxycycline 100mg PO bid - Lasix PRN Labs Test 07/21/18 18:20 White Blood Count 11.2 K/UL (4.8-10.8) Red Blood Count 5.00 M/UL (4.70-6.10) Hemoglobin 16.6 G/DL (14.2-18.0) Hematocrit 49.1 % (42.0-52.0) Mean Corpuscular Volume 98 FL (80-99) Mean Corpuscular Hemoglobin 33.2 PG (27.0-31.0) Mean Corpuscular Hemoglobin Concent 33.8 G/DL (32.0-36.0) Red Cell Distribution Width 12.2 % (11.6-14.8) Platelet Count 214 K/UL (150-450) Mean Platelet Volume 5.9 FL (6.5-10.1) Neutrophils (%) (Auto) 62.7 % (45.0-75.0) Lymphocytes (%) (Auto) 29.3 % (20.0-45.0) Monocytes (%) (Auto) 6.5 % (1.0-10.0) Eosinophils (%) (Auto) 0.7 % (0.0-3.0) Basophils (%) (Auto) 0.9 % (0.0-2.0) Sodium Level 140 MMOL/L (136-145) Potassium Level 4.3 MMOL/L (3.5-5.1) Chloride Level 103 MMOL/L (98-107) Carbon Dioxide Level 27 MMOL/L (21-32) Anion Gap 10 mmol/L (5-15) Blood Urea Nitrogen 33 mg/dL (7-18) Creatinine 1.4 MG/DL (0.55-1.30) Estimat Glomerular Filtration Rate 52.8 mL/min (>60) Glucose Level 92 MG/DL (74-106) Lactic Acid Level 1.40 mmol/L (0.4-2.0) Calcium Level 9.4 MG/DL (8.5-10.1) Total Bilirubin 1.0 MG/DL (0.2-1.0) Aspartate Amino Transf (AST/SGOT) 32 U/L (15-37) Alanine Aminotransferase (ALT/SGPT) 36 U/L (12-78) Alkaline Phosphatase 105 U/L (46-116) Total Creatine Kinase 277 U/L (26-308) Creatine Kinase MB 1.2 NG/ML (0.0-3.6) Creatine Kinase MB Relative Index 0.4 Troponin I 0.000 ng/mL (0.000-0.056) Pro-B-Type Natriuretic Peptide 74 pg/mL (0-125) Total Protein 7.6 G/DL (6.4-8.2) Albumin 3.8 G/DL (3.4-5.0) Globulin 3.8 g/dL Albumin/Globulin Ratio 1.0 (1.0-2.7) EKG Diagnostic Results Rate: normal Rhythm: NSR ST Segments: no acute changes ASA given to the pt in ED: No - allergic to ASA Rhythm Strip Diag. Results EP Interpretation: yes Rhythm: NSR, no PVC's, no ectopy Chest X-Ray Diagnostic Results Chest X-Ray Diagnostic Results : Chest X-Ray Ordered: Yes # of Views/Limited/Complete: 1 View Indication: Shortness of Breath EP Interpretation: Yes Interpretation: no consolidation, no pneumothorax, other - atelectasis lower lung [place] Subjective ROS Limited/Unobtainable: No Allergies: Coded Allergies: ASPIRIN (Verified Allergy, Unknown, 07/14/18) KETOROLAC (Verified Allergy, Unknown, 07/14/18) PENICILLINS (Verified Allergy, Unknown, 07/14/18) Objective Last 24 Hour Vital Signs Date Time Temp Pulse Resp B/P (MAP) Pulse Ox O2 Delivery O2 Flow Rate FiO2 07/26/18 11:51 74 18 122/64 (83) 95 07/26/18 09:00 Room Air 07/26/18 08:00 97.3 89 20 106/41 (62) 95 07/26/18 07:56 72 07/26/18 07:25 77 20 98 Room Air 21 07/26/18 07:20 67 18 97 Room Air 21 07/26/18 04:00 64 07/26/18 04:00 97.5 71 18 106/48 (67) 97 07/26/18 02:05 Room Air 21 07/26/18 02:05 Room Air 21 07/26/18 00:00 97.7 68 18 124/75 (91) 96 07/26/18 00:00 65 12/29/18 21:00 Room Air 07/25/18 20:00 97.7 67 18 124/63 (83) 97 07/25/18 20:00 87 07/25/18 19:48 Room Air 21 07/25/18 19:48 Room Air 21 07/25/18 19:11 98.4 07/25/18 17:51 98.4 07/25/18 16:00 98.4 92 18 121/60 (80) 95 07/25/18 15:43 89 07/25/18 14:29 80 18 98 Room Air 21 07/25/18 14:22 74 18 97 Room Air 21 Intake and Output 07/25/18 07/26/18 19:00 07:00 Intake Total 1500 ml 400 ml Balance 1500 ml 400 ml Intake Oral 1500 ml 400 ml # Voids 5 4 Current Medications Medications (Trade) Dose Ordered Sig/Luis Route PRN Reason Start Time Stop Time Status Last Admin Dose Admin Acetaminophen/ Hydrocodone Bitart ([place] 10/325) 1 tab Q6H PRN ORAL Moderate Pain (Pain Scale 4-6) 07/22/18 09:15 07/29/18 09:14 Albuterol/ Ipratropium (Albuterol/ Ipratropium) 3 ml Q6HRT HHN 07/22/18 19:00 07/27/18 18:59 07/26/18 07:27 Doxycycline Monohydrate (Vibramycin) 100 mg EVERY 12 HOURS ORAL 07/22/18 14:00 07/29/18 13:59 07/26/18 09:46 Heparin Sodium (Porcine) (Heparin 5000 units/ml) 5,000 units EVERY 12 HOURS SUBQ 07/22/18 21:00 08/21/18 20:59 07/25/18 08:15 Levetiracetam (Keppra) 500 mg Q12HR ORAL 07/24/18 21:00 08/23/18 20:59 07/26/18 09:46 Methylprednisolone Sodium Succinate (Solu-MEDROL) 40 mg EVERY 12 HOURS IVP 07/22/18 21:00 08/21/18 20:59 07/26/18 09:47 Morphine Sulfate (MS Contin) 15 mg BID ORAL 07/22/18 18:00 07/29/18 17:59 07/26/18 09:47 Morphine Sulfate (Morphine Sulfate) 4 mg Q4H PRN IVP Severe Pain (Pain Scale 7-10) 07/22/18 09:15 07/29/18 09:14 07/26/18 11:09 Nitroglycerin (Ntg) 0.4 mg Q5M PRN SL Prn Chest Pain 07/22/18 22:00 08/21/18 21:59 Ranolazine (Ranexa ER 500mg) 500 mg Q12HR ORAL 07/25/18 21:00 08/24/18 20:59 07/26/18 09:46 Elliot Stewart MD Jul 26, 2018 13:00
--- NOTE | 2018-07-26 13:12 | General Progress Note ---
Assessment/Plan Assessment/Plan (1) Lumbar DDD (2) Lumbar Spondylosis (3) Lumbar Radiculopathy (4) Morbid Obesity (5) Right knee pain (6) Right knee OA h/o ORIF Patient will be continued on Morphine and [place]. D/w Dr. Magaña and he concurred. Subjective Date patient seen: Jul 26, 2018 Time patient seen: 12:00 - pm Allergies: Coded Allergies: ASPIRIN (Verified Allergy, Unknown, 07/14/18) KETOROLAC (Verified Allergy, Unknown, 07/14/18) PENICILLINS (Verified Allergy, Unknown, 07/14/18) Subjective REVIEW OF SYSTEMS: Denies rash, fever, chills, sweating, dizziness, drowsiness, blurred vision, sore throat, change in weight. No shortness of breath or chest pain. No nausea, vomiting, diarrhea, or blood in the stool or urine. No bowel or bladder incontinence. No dysuria. He is complaining of low back pain and right lower extremity pain. SUBJECTIVE: Patient is comfortable and reports that his pain has been stable and tolerated on the Morphine ER, [place] and Morphine IV. He has no new complaints at this time. Objective Last 24 Hour Vital Signs Date Time Temp Pulse Resp B/P (MAP) Pulse Ox O2 Delivery O2 Flow Rate FiO2 07/26/18 13:01 74 20 98 Room Air 07/26/18 12:55 71 18 95 Room Air 07/26/18 11:51 74 18 122/64 (83) 95 07/26/18 09:00 Room Air 07/26/18 08:00 97.3 89 20 106/41 (62) 95 07/26/18 07:56 72 07/26/18 07:25 77 20 98 Room Air 21 07/26/18 07:20 67 18 97 Room Air 21 07/26/18 04:00 64 07/26/18 04:00 97.5 71 18 106/48 (67) 97 07/26/18 02:05 Room Air 21 07/26/18 02:05 Room Air 21 07/26/18 00:00 97.7 68 18 124/75 (91) 96 07/26/18 00:00 65 07/25/18 21:00 Room Air 07/25/18 20:00 97.7 67 18 124/63 (83) 97 07/25/18 20:00 87 07/25/18 19:48 Room Air 21 07/25/18 19:48 Room Air 21 07/25/18 19:11 98.4 07/25/18 17:51 98.4 07/25/18 16:00 98.4 92 18 121/60 (80) 95 07/25/18 15:43 89 07/25/18 14:29 80 18 98 Room Air 21 07/25/18 14:22 74 18 97 Room Air 21 Intake and Output 07/25/18 07/26/18 19:00 07:00 Intake Total 1500 ml 400 ml Balance 1500 ml 400 ml Intake Oral 1500 ml 400 ml # Voids 5 4 Height (Feet): 5 Height (Inches): 11.00 Weight (Pounds): 415 Objective GENERAL: Alert, awake, and oriented x3. LUNGS: Decreased breath sounds bilaterally. HEART: S1 and S2, regular. ABDOMEN: Obese. EXTREMITIES: No cyanosis. No clubbing. No edema. NEURO: No Focal deficits. Eliezer Nicole Jul 26, 2018 13:12
--- NOTE | 2018-07-26 15:11 | General Progress Note ---
Assessment/Plan Problem List: (1) Right heart failure ICD Codes: I50.810 - Right heart failure, unspecified SNOMED: 071410126 (2) Peripheral edema ICD Codes: R60.9 - Edema, unspecified SNOMED: 750103466 (3) Leg pain ICD Codes: M79.606 - Pain in leg, unspecified SNOMED: 75715728 (4) COPD (chronic obstructive pulmonary disease) ICD Codes: J44.9 - Chronic obstructive pulmonary disease, unspecified SNOMED: 43674242 Qualifiers: Qualified Codes: J44.9 - Chronic obstructive pulmonary disease, unspecified (5) CHF (congestive heart failure) ICD Codes: I50.9 - Heart failure, unspecified SNOMED: 04047710 Qualifiers: Qualified Codes: I50.9 - Heart failure, unspecified (6) ACS (acute coronary syndrome) ICD Codes: I24.9 - Acute ischemic heart disease, unspecified SNOMED: 605319257 Status: progressing Assessment/Plan no acute events copd chronic pain no wheezng not hypoxic leg pain afebrile copd improving Subjective ROS Limited/Unobtainable: Yes Allergies: Coded Allergies: ASPIRIN (Verified Allergy, Unknown, 07/14/18) KETOROLAC (Verified Allergy, Unknown, 07/14/18) PENICILLINS (Verified Allergy, Unknown, 07/14/18) Objective Last 24 Hour Vital Signs Date Time Temp Pulse Resp B/P (MAP) Pulse Ox O2 Delivery O2 Flow Rate FiO2 07/26/18 13:01 74 20 98 Room Air 21 07/26/18 12:59 71 07/26/18 12:55 71 18 95 Room Air 07/26/18 11:51 74 18 122/64 (83) 95 07/26/18 09:00 Room Air 07/26/18 08:00 97.3 89 20 106/41 (62) 95 07/26/18 07:56 72 07/26/18 07:25 77 20 98 Room Air 21 07/26/18 07:20 67 18 97 Room Air 21 07/26/18 04:00 64 07/26/18 04:00 97.5 71 18 106/48 (67) 97 07/26/18 02:05 Room Air 21 07/26/18 02:05 Room Air 21 07/26/18 00:00 97.7 68 18 124/75 (91) 96 07/26/18 00:00 65 07/25/18 21:00 Room Air 07/25/18 20:00 97.7 67 18 124/63 (83) 97 07/25/18 20:00 87 07/25/18 19:48 Room Air 21 07/25/18 19:48 Room Air 21 07/25/18 19:11 98.4 07/25/18 17:51 98.4 07/25/18 16:00 98.4 92 18 121/60 (80) 95 07/25/18 15:43 89 Intake and Output 07/25/18 07/26/18 19:00 07:00 Intake Total 1500 ml 400 ml Balance 1500 ml 400 ml Intake Oral 1500 ml 400 ml # Voids 5 4 Height (Feet): 5 Height (Inches): 11.00 Weight (Pounds): 415 Respiratory/Chest: lungs clear Abdomen: soft Vadim Tang MD Jul 26, 2018 15:11
--- NOTE | 2018-07-26 17:14 | NUR ---
CASE MANAGEMENT:REVIEW 07/26/18 SI: ACS. COPD. CHF T 97.3 HR 65 RR 18 B/P 134/81 SATS 96% ON RA NO LABS TODAY IS: IV SOLU MEDROL Q12H VIBRAMYCIN PO Q12 H HEPARIN SUBQ Q12H DUONEB HHN Q6HRS RTC MORPHINE PO BID IV MORPHINE Q4HRS PRN : TELEMETRY STATUS
--- NOTE | 2018-07-26 17:29 | NUR ---
NURSE NOTES: received patient A/A/Ox4, personal belongings reviewed/noted, patient stated that he has no song with him. patient appeared upset upon arriving to the unit. constantly nodding. dinner was not given until patient got to the unit @ this time. No acute resp distress noted. keep bed in low position and siderails. call light is within reach. will cont to monitor.
--- NOTE | 2018-07-26 17:30 | NUR ---
NURSE NOTES: Patient was transfer from [facility] to [facility] at 17:15. Patient is stable, no respiratory distress, and patient has moderate generalized being managed pharmacologically. Gave report to ROSY Matson. Went over belonging checklist. All orders were transferred.
[2018-07-26] MEDS ORDERED: Nitroglycerin Subl 0.4mg tab SL PRN (17:35)
[2018-07-26] MEDS ORDERED: HYDROcodone/Acetamin 10/325 tab ORAL PRN (17:36)
--- NOTE | 2018-07-26 19:30 | NUR ---
NURSE NOTES: Report taken from ROSY Matson. Patient awake and alert in bed. No signs of distress. Patient stating he is having 8/10 pain radiating through bilateral legs and low back. On room air. IV site clean, dry, intact and patent. Call light within reach, bed in lowest position.
[2018-07-27] VITALS: BP 142/90
[2018-07-27] MEDS: Morphine Sulfate 4mg/ml Inj (IV/IM USE ONLY) IVP PRN ×6 (03:59→20:44)
[2018-07-27 04:00] VITALS: BP 145/95
--- NOTE | 2018-07-27 07:14 | NUR ---
HAND-OFF: Report given to MICAELA Casiano. Patient refused blood draws prior to handoff.
--- NOTE | 2018-07-27 07:15 | NUR ---
NURSE NOTES:ASLEEP ON WALKING ROUNDS ROOM AIR,BED LOCKED.NO SIGN OF RESPIRATORY DISTRESS.
[2018-07-27] MEDS: Albuterol/Ipratropium 3ml neb HHN SCH ×2 (07:20→13:00)
[2018-07-27] MEDS: Ranolazine 500mg tab ORAL SCH ×2 (08:32→20:39)
[2018-07-27] MEDS: Solu-MEDROL 40mg Inj IVP SCH ×2 (08:32→20:39)
--- NOTE | 2018-07-27 08:35 | NUR ---
NURSE NOTES:C/O GENERALIZED PAIN 8/10,MEDICATED WITH MORPHINE 4MG.IV.PLAN OF CARE DISCUSSED,WITH UNDERSTANDING.
--- NOTE | 2018-07-27 08:37 | Nephrology Progress Note ---
Assessment/Plan Assessment/Plan A/P 1) CKD 3B- Cr 1.1 - awaiting lab recollection 2) ACS/ - awaiting transfer to [facility] 3) COPD- per pulm mgmt Will See patient MWF. Check labs in am Subjective Date patient seen: Jul 27, 2018 Time patient seen: 08:36 ROS Limited/Unobtainable: No Allergies: Coded Allergies: ASPIRIN (Verified Allergy, Unknown, 07/14/18) KETOROLAC (Verified Allergy, Unknown, 07/14/18) PENICILLINS (Verified Allergy, Unknown, 07/14/18) Subjective Patient awaiting transfer to [facility]. Objective Last 24 Hour Vital Signs Date Time Temp Pulse Resp B/P (MAP) Pulse Ox O2 Delivery O2 Flow Rate FiO2 07/27/18 07:20 79 16 97 Room Air 21 07/27/18 07:00 73 16 98 Room Air 21 07/27/18 04:00 98.2 61 20 145/95 (112) 95 07/27/18 01:00 21 07/27/18 01:00 Room Air 21 07/27/18 00:00 98.4 68 18 142/90 (107) 96 07/26/18 23:42 Room Air 07/26/18 20:00 98.6 64 18 118/76 (90) 94 07/26/18 19:57 75 12 98 Room Air 21 07/26/18 19:48 97 12 97 Room Air 21 07/26/18 18:25 97.3 07/26/18 17:00 97.7 64 18 122/75 (91) 94 07/26/18 16:00 65 18 134/81 (98) 96 07/26/18 15:53 97.3 07/26/18 15:38 80 07/26/18 13:01 74 20 98 Room Air 21 07/26/18 12:59 71 07/26/18 12:55 71 18 95 Room Air 21 07/26/18 11:51 74 18 122/64 (83) 95 07/26/18 09:00 Room Air Intake and Output 07/26/18 07/27/18 18:59 06:59 Intake Total 720 ml 900 ml Balance 720 ml 900 ml Intake Oral 720 ml 900 ml # Voids 3 2 Height (Feet): 5 Height (Inches): 11.00 Weight (Pounds): 415 General Appearance: no apparent distress, alert EENT: normal ENT inspection Neck: normal alignment, supple Cardiovascular: normal rate, regular rhythm Respiratory/Chest: lungs clear, normal breath sounds Abdomen: non tender, soft Edema: no edema noted Arm (L), no edema noted Arm (R), no edema noted Leg (L), no edema noted Leg (R), no edema noted Pedal (L), no edema noted Pedal (R), no edema noted Generalized Alexandre Maher MD Jul 27, 2018 08:37
[2018-07-27] MEDS: MS Contin 15mg tab ORAL SCH ×2 (08:38→18:00)
[2018-07-27] MEDS: Heparin 5000 units/ml inj SUBQ SCH ×2 (08:39→20:50)
[2018-07-27 08:54] VITALS: BP 154/98
--- NOTE | 2018-07-27 09:09 | General Progress Note ---
Assessment/Plan Assessment/Plan (1) Lumbar DDD (2) Lumbar Spondylosis (3) Lumbar Radiculopathy (4) Morbid Obesity (5) Right knee pain (6) Right knee OA h/o ORIF Patient will be continued on Morphine and [place]. D/w Dr. Magaña and he concurred. Subjective Date patient seen: Jul 27, 2018 Time patient seen: 07:15 - am Allergies: Coded Allergies: ASPIRIN (Verified Allergy, Unknown, 07/14/18) KETOROLAC (Verified Allergy, Unknown, 07/14/18) PENICILLINS (Verified Allergy, Unknown, 07/14/18) Subjective REVIEW OF SYSTEMS: Denies rash, fever, chills, sweating, dizziness, drowsiness, blurred vision, sore throat, change in weight. No shortness of breath or chest pain. No nausea, vomiting, diarrhea, or blood in the stool or urine. No bowel or bladder incontinence. No dysuria. He is complaining of low back pain and right lower extremity pain. SUBJECTIVE: Patient showing no signs of pain or distress. The pain has been tolerated on the Morphine ER 1 dose, Morphine IV 4 doses and [place] in the last 24hrs. He has no new complaints at this time. Objective Last 24 Hour Vital Signs Date Time Temp Pulse Resp B/P (MAP) Pulse Ox O2 Delivery O2 Flow Rate FiO2 07/27/18 08:54 98.3 98 19 154/98 (116) 97 07/27/18 08:35 Room Air 07/27/18 07:20 79 16 97 Room Air 07/27/18 07:00 73 16 98 Room Air 07/27/18 04:00 98.2 61 20 145/95 (112) 95 07/27/18 01:00 21 07/27/18 01:00 Room Air 21 07/27/18 00:00 98.4 68 18 142/90 (107) 96 07/26/18 23:42 Room Air 07/26/18 20:00 98.6 64 18 118/76 (90) 94 07/26/18 19:57 75 12 98 Room Air 21 07/26/18 19:48 97 12 97 Room Air 21 07/26/18 18:25 97.3 07/26/18 17:00 97.7 64 18 122/75 (91) 94 07/26/18 16:00 65 18 134/81 (98) 96 07/26/18 15:53 97.3 07/26/18 15:38 80 07/26/18 13:01 74 20 98 Room Air 21 07/26/18 12:59 71 07/26/18 12:55 71 18 95 Room Air 21 07/26/18 11:51 74 18 122/64 (83) 95 Intake and Output 07/26/18 07/27/18 18:59 06:59 Intake Total 720 ml 900 ml Balance 720 ml 900 ml Intake Oral 720 ml 900 ml # Voids 3 2 Height (Feet): 5 Height (Inches): 11.00 Weight (Pounds): 415 Objective GENERAL: Alert, awake, and oriented x3. LUNGS: Decreased breath sounds bilaterally. HEART: S1 and S2, regular. ABDOMEN: Obese. EXTREMITIES: No cyanosis. No clubbing. No edema. NEURO: No Focal deficits. Eliezer Nicole Jul 27, 2018 09:09
[2018-07-27] MEDS ORDERED: HYDROcodone/Acetamin 10/325 tab ORAL PRN (09:45)
--- NOTE | 2018-07-27 10:04 | Cardiology Progress Note ---
Assessment/Plan Status: stable, progressing Assessment/Plan Assessment/Plan Assessment/Plan (1) Lumbar DDD (2) Lumbar Spondylosis (3) Lumbar Radiculopathy (4) Morbid Obesity (5) Right knee pain (6) Right knee OA h/o ORIF (7) COPD (8) ACS (9) Chest pain -Serial EKG/Troponin -Echocardiogram -> Left ventricular ejection fraction estimated to be 55-60 %, elevated right atrial pressures -Transfer to [facility] for cardiac cath, no bed available at this time -Patient not having ACS, chest pain is stable, ok to discharge home and arrange as outpatient PET scan versus cardiac cath -Allergic to aspirin -Continue Statin -Plavix -Nitro prn chest pain -Hold heparin, troponin negative -Start ranexa for chronic angina -Monitor renal function, hold nephrotoxic medications Subjective Cardiovascular: Reports: chest pain Respiratory: Reports: no symptoms Gastrointestinal/Abdominal: Reports: no symptoms Genitourinary: Reports: no symptoms Subjective No acute events, vitals stable, echo with normal LV function but dilated IVC and right sided filling pressures, stress test not done yet, no chest pain Lexiscan can not be done due to patient size and body habitus, plan to transfer for cardiac cath vs D/c Objective Last 24 Hour Vital Signs Date Time Temp Pulse Resp B/P (MAP) Pulse Ox O2 Delivery O2 Flow Rate FiO2 07/27/18 08:54 98.3 98 19 154/98 (116) 97 07/27/18 08:35 Room Air 07/27/18 07:20 79 16 97 Room Air 07/27/18 07:00 73 16 98 Room Air 07/27/18 04:00 98.2 61 20 145/95 (112) 95 07/27/18 01:00 21 07/27/18 01:00 Room Air 21 07/27/18 00:00 98.4 68 18 142/90 (107) 96 07/26/18 23:42 Room Air 07/26/18 20:00 98.6 64 18 118/76 (90) 94 07/26/18 19:57 75 12 98 Room Air 21 07/26/18 19:48 97 12 97 Room Air 21 07/26/18 18:25 97.3 07/26/18 17:00 97.7 64 18 122/75 (91) 94 07/26/18 16:00 65 18 134/81 (98) 96 07/26/18 15:53 97.3 07/26/18 15:38 80 07/26/18 13:01 74 20 98 Room Air 21 07/26/18 12:59 71 07/26/18 12:55 71 18 95 Room Air 21 07/26/18 11:51 74 18 122/64 (83) 95 General Appearance: no apparent distress, alert EENT: PERRL/EOMI, normal ENT inspection Neck: non-tender, normal alignment, supple, normal inspection, no JVD Rhythm: NSR Cardiovascular: normal peripheral pulses, normal rate, regular rhythm Respiratory/Chest: chest wall non-tender, lungs clear, normal breath sounds, no respiratory distress Abdomen: normal bowel sounds, non tender, soft Extremities: normal range of motion, non-tender, normal inspection 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
--- NOTE | 2018-07-27 10:30 | NUR ---
NURSE NOTES:SEEN BY DR DYER,STATED TEST UNDER NUCLEAR MED IS DC.PATIENT IS CLEARED FOR D/C FR.CARDIO STAND POINT.
--- NOTE | 2018-07-27 11:31 | General Progress Note ---
Assessment/Plan Problem List: (1) Right heart failure ICD Codes: I50.810 - Right heart failure, unspecified SNOMED: 481954635 (2) Peripheral edema ICD Codes: R60.9 - Edema, unspecified SNOMED: 020485061 (3) Leg pain ICD Codes: M79.606 - Pain in leg, unspecified SNOMED: 73229543 (4) COPD (chronic obstructive pulmonary disease) ICD Codes: J44.9 - Chronic obstructive pulmonary disease, unspecified SNOMED: 50332706 Qualifiers: Qualified Codes: J44.9 - Chronic obstructive pulmonary disease, unspecified (5) CHF (congestive heart failure) ICD Codes: I50.9 - Heart failure, unspecified SNOMED: 98468727 Qualifiers: Qualified Codes: I50.9 - Heart failure, unspecified (6) ACS (acute coronary syndrome) ICD Codes: I24.9 - Acute ischemic heart disease, unspecified SNOMED: 914925817 Status: progressing Assessment/Plan no wheezing will dc once cleared by consultants no sob obesity chf copd improving Subjective ROS Limited/Unobtainable: Yes Allergies: Coded Allergies: ASPIRIN (Verified Allergy, Unknown, 07/14/18) KETOROLAC (Verified Allergy, Unknown, 07/14/18) PENICILLINS (Verified Allergy, Unknown, 07/14/18) Objective Last 24 Hour Vital Signs Date Time Temp Pulse Resp B/P (MAP) Pulse Ox O2 Delivery O2 Flow Rate FiO2 07/27/18 08:54 98.3 98 19 154/98 (116) 97 07/27/18 08:35 Room Air 07/27/18 07:20 79 16 97 Room Air 07/27/18 07:00 73 16 98 Room Air 21 07/27/18 04:00 98.2 61 20 145/95 (112) 95 07/27/18 01:00 21 07/27/18 01:00 Room Air 21 07/27/18 00:00 98.4 68 18 142/90 (107) 96 07/26/18 23:42 Room Air 07/26/18 20:00 98.6 64 18 118/76 (90) 94 07/26/18 19:57 75 12 98 Room Air 21 07/26/18 19:48 97 12 97 Room Air 21 07/26/18 18:25 97.3 07/26/18 17:00 97.7 64 18 122/75 (91) 94 07/26/18 16:00 65 18 134/81 (98) 96 07/26/18 15:53 97.3 07/26/18 15:38 80 07/26/18 13:01 74 20 98 Room Air 21 07/26/18 12:59 71 07/26/18 12:55 71 18 95 Room Air 21 07/26/18 11:51 74 18 122/64 (83) 95 Intake and Output 07/26/18 07/27/18 18:59 06:59 Intake Total 720 ml 900 ml Balance 720 ml 900 ml Intake Oral 720 ml 900 ml # Voids 3 2 Height (Feet): 5 Height (Inches): 11.00 Weight (Pounds): 415 General Appearance: alert Cardiovascular: normal rate Respiratory/Chest: lungs clear Vadim Tang MD Jul 27, 2018 11:31
--- NOTE | 2018-07-27 11:49 | NUR ---
NO INSURANCE INFORMATION IN THE BAR UNABLE TO SEND CLINICALS OR REVIEWS
[2018-07-27 12:11] VITALS: BP 141/97
--- NOTE | 2018-07-27 13:32 | NUR ---
CASE MANAGEMENT:REVIEW 07/27/18 SI: CHF. COPD. ACS LEG PAIN 98.7 73 19 141/97 98% ON RA IS: MS CONTIN PO BID IV MORPHINE Q4HRS PRN VIBRAMYCIN PO Q12 HEPARIN SQ Q12 IV SOLUMEDROL Q12 DUONEB HHN Q6HRS RTC : MED/SURG STATUS 3 EAST DCP; FROM [facility]
[2018-07-27 16:00] VITALS: BP 161/93
--- NOTE | 2018-07-27 19:20 | NUR ---
HAND-OFF: Report given to AYLIN RN.PATIENT STABLE.
[2018-07-27 20:00] VITALS: BP 129/88
--- NOTE | 2018-07-27 20:30 | NUR ---
NURSE NOTES: Pt is in bed awake, alert and ambulatory. No acute distress noted. pain medication will be given as ordered PRN. Bed low in position,side rails up and call light within reach. Pt will be monitored.
--- NOTE | 2018-07-27 20:35 | NUR ---
NURSE NOTES: Pt refused Heparin 5000 unit subQ despite encouragement and education.
[2018-07-28] VITALS: BP 158/103
[2018-07-28] MEDS: Morphine Sulfate 4mg/ml Inj (IV/IM USE ONLY) IVP PRN ×6 (01:02→22:33)
[2018-07-28 04:00] VITALS: BP 153/100
--- NOTE | 2018-07-28 05:30 | NUR ---
NURSE NOTES: Pt is in bed, awake. Complains of pain. Pain medication given as ordered PRN.
--- NOTE | 2018-07-28 06:20 | NUR ---
HAND-OFF: Report given to Paulo Barrett RN.
--- NOTE | 2018-07-28 07:30 | NUR ---
NURSE NOTES: Patient lying in bed awake. Complain of pain 9/10 and will administer pain medication as ordered. Skin intact and dry. IV dressing intact and dry. No bleeding or swelling on IV site. Bed lowest position. Call light within reach. Will continue to monitor.
[2018-07-28 08:00] VITALS: BP 147/80
[2018-07-28] MEDS: Solu-MEDROL 40mg Inj IVP SCH ×2 (08:51→20:48)
[2018-07-28] MEDS: Ranolazine 500mg tab ORAL SCH ×2 (08:51→20:48)
[2018-07-28] MEDS: MS Contin 15mg tab ORAL SCH ×2 (08:52→17:49)
[2018-07-28] MEDS: Heparin 5000 units/ml inj SUBQ SCH ×2 (09:00→20:56)
--- NOTE | 2018-07-28 10:38 | Cardiology Progress Note ---
Assessment/Plan Status: stable Assessment/Plan Assessment/Plan Assessment/Plan (1) Lumbar DDD (2) Lumbar Spondylosis (3) Lumbar Radiculopathy (4) Morbid Obesity (5) Right knee pain (6) Right knee OA h/o ORIF (7) COPD (8) ACS (9) Chest pain -Serial EKG/Troponin -Echocardiogram -> Left ventricular ejection fraction estimated to be 55-60 %, elevated right atrial pressures -Transfer to [facility] for cardiac cath, no bed available at this time -Patient not having ACS, chest pain is stable, ok to discharge home and arrange as outpatient PET scan versus cardiac cath -Allergic to aspirin -Continue Statin -Plavix -Nitro prn chest pain -Hold heparin, troponin negative -Start ranexa for chronic angina -Monitor renal function, hold nephrotoxic medications Subjective Cardiovascular: Reports: no symptoms Respiratory: Reports: no symptoms Gastrointestinal/Abdominal: Reports: no symptoms Genitourinary: Reports: no symptoms Subjective No acute events, vitals stable, echo with normal LV function but dilated IVC and right sided filling pressures, no chest pain Lexiscan can not be done due to patient size and body habitus Refused heparin this AM. Awaiting discharge Objective Last 24 Hour Vital Signs Date Time Temp Pulse Resp B/P (MAP) Pulse Ox O2 Delivery O2 Flow Rate FiO2 07/28/18 09:13 72 16 Room Air 07/28/18 08:00 98.0 102 20 147/80 (102) 100 07/28/18 04:00 98.0 76 20 153/100 (117) 98 07/28/18 00:00 98.6 69 20 158/103 (121) 96 07/27/18 21:00 Room Air 07/27/18 20:00 98.9 86 20 129/88 (102) 97 07/27/18 16:00 97.5 78 19 161/93 (115) 99 07/27/18 13:36 Room Air 21 07/27/18 13:36 Room Air 21 07/27/18 12:11 98.7 73 19 141/97 (112) 98 General Appearance: no apparent distress, alert EENT: PERRL/EOMI, normal ENT inspection Neck: non-tender, normal alignment, supple Rhythm: NSR Cardiovascular: normal peripheral pulses, normal rate, regular rhythm Respiratory/Chest: chest wall non-tender, lungs clear Abdomen: normal bowel sounds, non tender, soft Extremities: normal range of motion, non-tender 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
[2018-07-28 10:48] LABS: ANION GAP 7 mmol/L (5-15); BLOOD UREA NITROGEN 31 mg/dL (7-18); CALCIUM 9.2 MG/DL (8.5-10.1); CARBON DIOXIDE 30 MMOL/L (21-32); CHLORIDE 102 MMOL/L (98-107); CREATININE 1.1 MG/DL (0.55-1.30); POTASSIUM 4.7 MMOL/L (3.5-5.1); SODIUM 139 MMOL/L (136-145)
--- NOTE | 2018-07-28 11:25 | NUR ---
NURSE NOTES: Given report to Bonnie FISCHER that per patient : MS Contin do anything and Morphine 4mg is not strong enough. And he wants stronger pain medication. No new order. Notified patient. Will continue to monitor.
--- NOTE | 2018-07-28 11:35 | General Progress Note ---
Assessment/Plan Assessment/Plan (1) Lumbar DDD (2) Lumbar Spondylosis (3) Lumbar Radiculopathy (4) Morbid Obesity (5) Right knee pain (6) Right knee OA h/o ORIF Patient will be continued on Morphine and [place]. D/w Dr. Magaña and he concurred. Subjective Date patient seen: Jul 28, 2018 Time patient seen: 10:50 - am Allergies: Coded Allergies: ASPIRIN (Verified Allergy, Unknown, 07/14/18) KETOROLAC (Verified Allergy, Unknown, 07/14/18) PENICILLINS (Verified Allergy, Unknown, 07/14/18) Subjective REVIEW OF SYSTEMS: Denies rash, fever, chills, sweating, dizziness, drowsiness, blurred vision, sore throat, change in weight. No shortness of breath or chest pain. No nausea, vomiting, diarrhea, or blood in the stool or urine. No bowel or bladder incontinence. No dysuria. He is complaining of low back pain and right lower extremity pain. SUBJECTIVE: Patient is sitting in bed and reports severe pain. Has gotten the Morphine ER and will be getting the Morphine IV with continued pain. Was advised to take the [place] and he understands. Objective Last 24 Hour Vital Signs Date Time Temp Pulse Resp B/P (MAP) Pulse Ox O2 Delivery O2 Flow Rate FiO2 07/28/18 09:13 72 16 Room Air 07/28/18 09:00 Room Air 07/28/18 08:00 98.0 102 20 147/80 (102) 100 07/28/18 04:00 98.0 76 20 153/100 (117) 98 07/28/18 00:00 98.6 69 20 158/103 (121) 96 07/27/18 21:00 Room Air 07/27/18 20:00 98.9 86 20 129/88 (102) 97 07/27/18 16:00 97.5 78 19 161/93 (115) 99 07/27/18 13:36 Room Air 21 07/27/18 13:36 Room Air 21 07/27/18 12:11 98.7 73 19 141/97 (112) 98 Intake and Output 07/27/18 07/28/18 18:59 06:59 Intake Total 2000 ml Balance 2000 ml Intake Oral 2000 ml # Voids 10 # Bowel Movements 3 Laboratory Tests 07/28/18 10:00: Sodium Level 139, Potassium Level 4.7, Chloride Level 102, Carbon Dioxide Level 30, Anion Gap 7, Blood Urea Nitrogen 31H, Creatinine 1.1, Estimat Glomerular Filtration Rate > 60, Glucose Level 109H, Calcium Level 9.2 Height (Feet): 5 Height (Inches): 11.00 Weight (Pounds): 415 Objective GENERAL: Alert, awake, and oriented x3. LUNGS: Decreased breath sounds bilaterally. HEART: S1 and S2, regular. ABDOMEN: Obese. EXTREMITIES: No cyanosis. No clubbing. No edema. NEURO: No Focal deficits. Eliezer Nicole Jul 28, 2018 11:35
[2018-07-28 12:00] VITALS: BP 135/81
--- NOTE | 2018-07-28 15:00 | NUR ---
NURSE NOTES: Spoke to regarding discharge with new order - 1. Patient cleared to discharge Hematology standpoint. Order noted and carried out.
--- NOTE | 2018-07-28 15:15 | NUR ---
NURSE NOTES: Spoke to Dr.De Valle regarding discharge with new order - 1. Patient cleared to discharge Nephrology standpoint. Order noted and carried out.
[2018-07-28 16:00] VITALS: BP 132/73
--- NOTE | 2018-07-28 19:45 | NUR ---
HAND-OFF: Report given to Fozia HINOJOSA. Patient in stable condition.
--- NOTE | 2018-07-28 19:46 | NUR ---
NURSE NOTES: Received report & pt from Paulo Barrett RN. Pt lying in bed, a&ox4, in room air. No s/s of acute distress & c/o 8/10 pain at this time. Will give PRN pain med when due & pt verbalized understanding. IV site intact & S/L'd. Bed in lowest position, call light within reach. Will continue to monitor.
[2018-07-28 20:00] VITALS: BP 122/67
--- NOTE | 2018-07-28 22:07 | General Progress Note ---
Assessment/Plan Problem List: (1) Right heart failure ICD Codes: I50.810 - Right heart failure, unspecified SNOMED: 428234491 (2) Peripheral edema ICD Codes: R60.9 - Edema, unspecified SNOMED: 555554854 (3) Leg pain ICD Codes: M79.606 - Pain in leg, unspecified SNOMED: 60195933 (4) COPD (chronic obstructive pulmonary disease) ICD Codes: J44.9 - Chronic obstructive pulmonary disease, unspecified SNOMED: 49609701 Qualifiers: Qualified Codes: J44.9 - Chronic obstructive pulmonary disease, unspecified (5) CHF (congestive heart failure) ICD Codes: I50.9 - Heart failure, unspecified SNOMED: 97326416 Qualifiers: Qualified Codes: I50.9 - Heart failure, unspecified (6) ACS (acute coronary syndrome) ICD Codes: I24.9 - Acute ischemic heart disease, unspecified SNOMED: 049275514 Status: stable Assessment/Plan reviewed chart and labs no sob obesity chf copd no fever Subjective ROS Limited/Unobtainable: Yes Allergies: Coded Allergies: ASPIRIN (Verified Allergy, Unknown, 07/14/18) KETOROLAC (Verified Allergy, Unknown, 07/14/18) PENICILLINS (Verified Allergy, Unknown, 07/14/18) Objective Last 24 Hour Vital Signs Date Time Temp Pulse Resp B/P (MAP) Pulse Ox O2 Delivery O2 Flow Rate FiO2 07/28/18 16:00 98.4 73 20 132/73 (92) 96 07/28/18 12:00 98.0 76 20 135/81 (99) 96 07/28/18 09:13 72 16 Room Air 07/28/18 09:00 Room Air 07/28/18 08:00 98.0 102 20 147/80 (102) 100 07/28/18 04:00 98.0 76 20 153/100 (117) 98 07/28/18 00:00 98.6 69 20 158/103 (121) 96 Intake and Output 07/27/18 07/28/18 19:00 07:00 Intake Total 2000 ml Balance 2000 ml Intake Oral 2000 ml # Voids 10 # Bowel Movements 3 Laboratory Tests 07/28/18 10:00: Sodium Level 139, Potassium Level 4.7, Chloride Level 102, Carbon Dioxide Level 30, Anion Gap 7, Blood Urea Nitrogen 31H, Creatinine 1.1, Estimat Glomerular Filtration Rate > 60, Glucose Level 109H, Calcium Level 9.2 Height (Feet): 5 Height (Inches): 11.00 Weight (Pounds): 415 Neck: supple Cardiovascular: normal rate Respiratory/Chest: lungs clear Abdomen: soft Vadim Tang MD Jul 28, 2018 22:07
[2018-07-29] VITALS: BP 150/101
[2018-07-29] MEDS: Morphine Sulfate 4mg/ml Inj (IV/IM USE ONLY) IVP PRN ×4 (02:35→15:11)
[2018-07-29 03:53] VITALS: BP 158/90
--- NOTE | 2018-07-29 06:40 | NUR ---
NURSE NOTES: Pt requesting for breathing tx. Called & left msg to Dr. Tang; Awaiting call back. Will endorse to AM shift.
--- NOTE | 2018-07-29 07:30 | NUR ---
NURSE NOTES: Patient is sitting up in bed eating breakfast and able to verbalize needs. Patient denies pain at this time. patient is stable with no s/s acute distress. Patient in bed in locked position and call light within reach. Will continue to monitor.
--- NOTE | 2018-07-29 07:30 | NUR ---
HAND-OFF: Report given to Cheryl Paredes RN. Endorsed AM RN to f/u with Dr. Tang regarding breathing tx request
[2018-07-29 08:00] VITALS: BP 152/89
--- NOTE | 2018-07-29 08:10 | NUR ---
NURSE NOTES: Left message for Dr. Tang about patient's request for breathing treatment and stronger pain medication. Awaiting response.
--- NOTE | 2018-07-29 08:27 | Nephrology Progress Note ---
Assessment/Plan Assessment/Plan A/P 1) CKD 3B- Cr 1.1. Will monito 2-3x week - OK for DC from renal point 2) ACS/ - awaiting transfer to [facility] or DC today 3) COPD- per pulm mgmt Subjective Date patient seen: Jul 29, 2018 Time patient seen: 08:25 Allergies: Coded Allergies: ASPIRIN (Verified Allergy, Unknown, 07/14/18) KETOROLAC (Verified Allergy, Unknown, 07/14/18) PENICILLINS (Verified Allergy, Unknown, 07/14/18) All Systems: reviewed and negative except above Subjective Patient in no distress. Poss DC today Objective Last 24 Hour Vital Signs Date Time Temp Pulse Resp B/P (MAP) Pulse Ox O2 Delivery O2 Flow Rate FiO2 07/29/18 03:53 97.7 76 19 158/90 (112) 99 07/29/18 00:00 98.4 75 20 150/101 (117) 97 07/28/18 21:00 Room Air 07/28/18 20:00 98.4 86 20 122/67 (85) 97 07/28/18 16:00 98.4 73 20 132/73 (92) 96 07/28/18 12:00 98.0 76 20 135/81 (99) 96 07/28/18 09:13 72 16 Room Air 07/28/18 09:00 Room Air Intake and Output 07/28/18 07/29/18 19:00 07:00 Intake Total 2000 ml 1300 ml Balance 2000 ml 1300 ml Intake Oral 2000 ml 1300 ml # Voids 5 4 Laboratory Tests 07/28/18 10:00: Sodium Level 139, Potassium Level 4.7, Chloride Level 102, Carbon Dioxide Level 30, Anion Gap 7, Blood Urea Nitrogen 31H, Creatinine 1.1, Estimat Glomerular Filtration Rate > 60, Glucose Level 109H, Calcium Level 9.2 Height (Feet): 5 Height (Inches): 11.00 Weight (Pounds): 412 General Appearance: no apparent distress, alert EENT: normal ENT inspection Neck: normal alignment, supple Cardiovascular: normal rate, regular rhythm Respiratory/Chest: lungs clear, normal breath sounds Abdomen: non tender, soft Edema: 1+ Arm (L), 1+ Arm (R), 1+ Leg (L), 1+ Leg (R), 1+ Pedal (L), 1+ Pedal ( R), 1+ Generalized Alexandre Maher MD Jul 29, 2018 08:27
[2018-07-29] MEDS ORDERED: Albuterol/Ipratropium 3ml neb HHN PRN (08:37)
[2018-07-29] MEDS: MS Contin 15mg tab ORAL SCH (08:54)
[2018-07-29] MEDS: Ranolazine 500mg tab ORAL SCH (08:54)
[2018-07-29] MEDS: Solu-MEDROL 40mg Inj IVP SCH (08:55)
[2018-07-29] MEDS: Heparin 5000 units/ml inj SUBQ SCH (09:00)
--- NOTE | 2018-07-29 09:01 | General Progress Note ---
Assessment/Plan Assessment/Plan (1) Lumbar DDD (2) Lumbar Spondylosis (3) Lumbar Radiculopathy (4) Morbid Obesity (5) Right knee pain (6) Right knee OA h/o ORIF Patient will be continued on Morphine. We will discontinue the [place] and start Percocet 10/325mg PO 1 tab Q4H PRN moderate pain. D/w Dr. Magaña and he concurred. Subjective Date patient seen: Jul 29, 2018 Time patient seen: 07:30 - am Allergies: Coded Allergies: ASPIRIN (Verified Allergy, Unknown, 07/14/18) KETOROLAC (Verified Allergy, Unknown, 07/14/18) PENICILLINS (Verified Allergy, Unknown, 07/14/18) Subjective REVIEW OF SYSTEMS: Denies rash, fever, chills, sweating, dizziness, drowsiness, blurred vision, sore throat, change in weight. No shortness of breath or chest pain. No nausea, vomiting, diarrhea, or blood in the stool or urine. No bowel or bladder incontinence. No dysuria. He is complaining of low back pain and right lower extremity pain. SUBJECTIVE: Patient continues to c/o pain in his back and LE. He has not taken the [place], continues to take the Morphine Er and IV with minimal relief. D/w him about percocet and he understands. Objective Last 24 Hour Vital Signs Date Time Temp Pulse Resp B/P (MAP) Pulse Ox O2 Delivery O2 Flow Rate FiO2 07/29/18 03:53 97.7 76 19 158/90 (112) 99 07/29/18 00:00 98.4 75 20 150/101 (117) 97 07/28/18 21:00 Room Air 07/28/18 20:00 98.4 86 20 122/67 (85) 97 07/28/18 16:00 98.4 73 20 132/73 (92) 96 07/28/18 12:00 98.0 76 20 135/81 (99) 96 07/28/18 09:13 72 16 Room Air 07/28/18 09:00 Room Air Intake and Output 07/28/18 07/29/18 19:00 07:00 Intake Total 2000 ml 1300 ml Balance 2000 ml 1300 ml Intake Oral 2000 ml 1300 ml # Voids 5 4 Laboratory Tests 07/28/18 10:00: Sodium Level 139, Potassium Level 4.7, Chloride Level 102, Carbon Dioxide Level 30, Anion Gap 7, Blood Urea Nitrogen 31H, Creatinine 1.1, Estimat Glomerular Filtration Rate > 60, Glucose Level 109H, Calcium Level 9.2 Height (Feet): 5 Height (Inches): 11.00 Weight (Pounds): 412 Objective GENERAL: Alert, awake, and oriented x3. LUNGS: Decreased breath sounds bilaterally. HEART: S1 and S2, regular. ABDOMEN: Obese. EXTREMITIES: No cyanosis. No clubbing. No edema. NEURO: No Focal deficits. Eliezer Nicole Jul 29, 2018 09:01
--- NOTE | 2018-07-29 09:50 | Cardiology Progress Note ---
Assessment/Plan Status: stable Assessment/Plan Assessment/Plan Assessment/Plan (1) Lumbar DDD (2) Lumbar Spondylosis (3) Lumbar Radiculopathy (4) Morbid Obesity (5) Right knee pain (6) Right knee OA h/o ORIF (7) COPD (8) ACS (9) Chest pain -Serial EKG/Troponin -Echocardiogram -> Left ventricular ejection fraction estimated to be 55-60 %, elevated right atrial pressures -Patient not having ACS, chest pain is stable, ok to discharge home and arrange as outpatient PET scan versus cardiac cath -Allergic to aspirin -Continue Statin -Continue Plavix -Nitro prn chest pain -Hold heparin, troponin negative -Start ranexa for chronic angina -Monitor renal function, hold nephrotoxic medications Subjective Cardiovascular: Reports: no symptoms Respiratory: Reports: no symptoms Gastrointestinal/Abdominal: Reports: no symptoms Genitourinary: Reports: no symptoms Subjective No acute events, vitals stable, echo with normal LV function but dilated IVC and right sided filling pressures, no chest pain Lexiscan can not be done due to patient size and body habitus Refused heparin this AM. Awaiting discharge, asks for stronger pain medication and breathing treatments Objective Last 24 Hour Vital Signs Date Time Temp Pulse Resp B/P (MAP) Pulse Ox O2 Delivery O2 Flow Rate FiO2 07/29/18 09:00 Room Air 07/29/18 08:00 97.9 83 20 152/89 (110) 98 07/29/18 03:53 97.7 76 19 158/90 (112) 99 07/29/18 00:00 98.4 75 20 150/101 (117) 97 07/28/18 21:00 Room Air 07/28/18 20:00 98.4 86 20 122/67 (85) 97 07/28/18 16:00 98.4 73 20 132/73 (92) 96 07/28/18 12:00 98.0 76 20 135/81 (99) 96 General Appearance: no apparent distress, alert EENT: PERRL/EOMI, normal ENT inspection, TMs normal, pharynx normal Neck: non-tender, normal alignment, supple, normal inspection, no JVD Rhythm: NSR Cardiovascular: normal peripheral pulses, normal rate, regular rhythm Respiratory/Chest: chest wall non-tender, lungs clear Abdomen: normal bowel sounds, non tender, soft, no organomegaly, no mass Extremities: normal range of motion, non-tender, normal inspection 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, no motor/sensory deficits Intake and Output 07/28/18 07/29/18 19:00 07:00 Intake Total 2000 ml 1300 ml Balance 2000 ml 1300 ml Intake Oral 2000 ml 1300 ml # Voids 5 4 Laboratory Tests Test 07/28/18 10:00 Sodium Level 139 MMOL/L (136-145) Potassium Level 4.7 MMOL/L (3.5-5.1) Chloride Level 102 MMOL/L (98-107) Carbon Dioxide Level 30 MMOL/L (21-32) Anion Gap 7 mmol/L (5-15) Blood Urea Nitrogen 31 mg/dL (7-18) H Creatinine 1.1 MG/DL (0.55-1.30) Estimat Glomerular Filtration Rate > 60 mL/min (>60) Glucose Level 109 MG/DL (74-106) H Calcium Level 9.2 MG/DL (8.5-10.1) Elliot Davis MD Jul 29, 2018 09:50
--- NOTE | 2018-07-29 10:18 | NUR ---
NURSE NOTES: Called Dr. Stewart about discharging patient. Dr. Stewart said he is not on this case. Will follow up with primary MD.
[2018-07-29 12:00] VITALS: BP 147/107
--- NOTE | 2018-07-29 12:34 | NUR ---
CASE MANAGEMENT: REVIEW SI: ACS . COPD T 98.0 HR 69 RR 20 BP 158/90 SAT 97% ROOM AIR IS: MS CONTIN PO BID DOXYCYCLINE PO Q12HR HEPARIN SQ Q12HR KEPPRA PO Q12HR SOLU MEDROL IV Q12HR MED/SURG STATUS DCP: PATIENT IS FROM [facility]
--- NOTE | 2018-07-29 12:38 | NUR ---
CASE MANAGEMENT: DCPNOTE UPON DISCHARGE PATIENT WILL TRANSFER BACK TO [facility] [phone] SKILLED 124B PATIENT AND FAMILY JENNIFER LUND [phone] IN AGREEMENT WITH PATIENT TRANSFERRING BACK TO THIS FACILITY TRANSPORTATION VIA [facility] [id number] BARIATRIC GURNEY ORDERED ETA 15:30
--- NOTE | 2018-07-29 16:14 | NUR ---
NURSE NOTES: Patient discharged to [facility]. Patient transferred via gurney assisted by [facility] EMT unit [id number]. Gave report to Jenise HINOJOSA at [facility]. Patient is stable, no s/s acute distress. Patient denies pain and SOB at this time. Patient has all belongings. IV removed, no complications.
--- NOTE | 2018-07-29 17:31 | General Progress Note ---
Assessment/Plan Problem List: (1) Right heart failure ICD Codes: I50.810 - Right heart failure, unspecified SNOMED: 740070173 (2) Peripheral edema ICD Codes: R60.9 - Edema, unspecified SNOMED: 669212465 (3) Leg pain ICD Codes: M79.606 - Pain in leg, unspecified SNOMED: 48791083 (4) COPD (chronic obstructive pulmonary disease) ICD Codes: J44.9 - Chronic obstructive pulmonary disease, unspecified SNOMED: 94803205 Qualifiers: Qualified Codes: J44.9 - Chronic obstructive pulmonary disease, unspecified (5) CHF (congestive heart failure) ICD Codes: I50.9 - Heart failure, unspecified SNOMED: 35657647 Qualifiers: Qualified Codes: I50.9 - Heart failure, unspecified (6) ACS (acute coronary syndrome) ICD Codes: I24.9 - Acute ischemic heart disease, unspecified SNOMED: 073305825 Status: progressing Assessment/Plan reviewed chart and labs no sob chf improved i dc him data quality consultant also cleared him for dc Subjective ROS Limited/Unobtainable: Yes Allergies: Coded Allergies: ASPIRIN (Verified Allergy, Unknown, 07/14/18) KETOROLAC (Verified Allergy, Unknown, 07/14/18) PENICILLINS (Verified Allergy, Unknown, 07/14/18) Objective Last 24 Hour Vital Signs Date Time Temp Pulse Resp B/P (MAP) Pulse Ox O2 Delivery O2 Flow Rate FiO2 07/29/18 12:00 98.0 69 20 147/107 (120) 99 07/29/18 09:00 Room Air 07/29/18 08:00 97.9 83 20 152/89 (110) 98 07/29/18 03:53 97.7 76 19 158/90 (112) 99 07/29/18 00:00 98.4 75 20 150/101 (117) 97 07/28/18 21:00 Room Air 07/28/18 20:00 98.4 86 20 122/67 (85) 97 Intake and Output 07/28/18 07/29/18 18:59 06:59 Intake Total 2000 ml 1300 ml Balance 2000 ml 1300 ml Intake Oral 2000 ml 1300 ml # Voids 5 4 Height (Feet): 5 Height (Inches): 11.00 Weight (Pounds): 412 Vadim Tang MD Jul 29, 2018 17:31
[2018-07-29] MEDS ORDERED: MS Contin 15mg tab ORAL SCH (18:00)
--- NOTE | 2018-07-30 12:17 | Discharge Summary ---
Discharge Summary Discharge Summary _ DATE OF ADMISSION: 07/21/2018 DATE OF DISCHARGE: 07/29/2018 DISCHARGED BY: Dr. Vadim Wise CONSULTANTS: Dr. Elliot Wilson [facility] H[facility]PITAL COURSE: Patient is a 52-year-old male, who presented to ED from half-way facility for evaluation of chest pain. Symptoms started 2 hours prior to arrival and had a sudden onset. He was given nitroglycerin x2 with some improvement in symptoms. He also complained of shortness of breath. He has medical history notable for COPD and CHF. He denied fever or chills. On evaluation at the ED, he was saturating 92% on room air. Blood work showed leukocytosis, WBC 11.2, hemoglobin and hematocrit were stable. Electrolytes were stable. Troponin was negative. EKG showed normal sinus rhythm with no acute changes. Chest x-ray showed hyperinflated lungs with pulmonary congestion. Pro-BNP was 74. He was admitted for evaluation of possible acute coronary syndrome, COPD and CHF. He underwent cardiac evaluation. Troponin was negative. Patient was allergic to aspirin. He was given nitroglycerin as needed chest pain. He had an echocardiogram that showed normal left ventricular function with dilated IVC and right-sided atrial pressure. He was given Ranexa. Lexiscan Cardiolite was ordered, however was not done due to patient's size and body habitus. [facility]. Kidney function was noted to be elevated. Patient had a history of being on hemodialysis in the past, however currently off hemodialysis. Patient has acute on chronic kidney disease stage IIIb. Renal function was monitored. He was was given pain management. He complained of pain on the knee and back. He was placed on morphine and Bridgman. Medication was eventually switched to Percocet. Respiratory status was monitored. He was eventually started on IV Solu-Medrol. He was given nebulizer treatment. Patient has obstructive sleep apnea and was recommended BiPAP as needed. He was placed empirically on doxycycline 100 mg p.o. twice daily. Patient currently was not in ACS. Chest pain stable. He was cleared for discharge home to arrange outpatient PET scan versus cardiac cath. Patient had leukocytosis. Blood culture did not isolate any growth. Influenza screen was negative. He was eventually discharged back to [facility]. FINAL DIAGNOSES: Acute COPD exacerbation Chest pain, possible ACS Acute on chronic renal failure, CKD 3B Morbid obesity Lumbar spondylosis/DDD Right knee OA with history of ORIF Obstructive Sleep apnea CAD Depression/Anxiety Seizure DO Acute on Chronic diastolic CHF DISPOSITION: DC to SNF. DISCHARGE MEDICATIONS: Refer to Discharge Medication List. I have been assigned to dictate discharge summary on this account, and I was not involved in the patient's management. Melany Lantigua NP Jul 30, 2018 12:17
== END 2018-07-29 16:20 | DRG 190 ==
LOC: EDBD 17:02 → EMR 17:32 → 2E 17:38 → EDBEDREQ 19:01 → 3E 07-26 17:15
DX: J44.1 Chronic obstructive pulmonary disease with (acute) exacerbation (principal); I50.33 Acute on chronic diastolic (congestive) heart failure; N17.9 Acute kidney failure, unspecified; I24.9 Acute ischemic heart disease, unspecified; Z68.43 Body mass index [BMI] 50.0-59.9, adult; E66.01 Morbid (severe) obesity due to excess calories; Z88.6 Allergy status to analgesic agent; Z88.0 Allergy status to penicillin; Z88.8 Allergy status to other drugs, medicaments and biological substances; M51.36 Other intervertebral disc degeneration, lumbar region; M47.896 Other spondylosis, lumbar region; M17.11 Unilateral primary osteoarthritis, right knee; G47.33 Obstructive sleep apnea (adult) (pediatric); N18.3 Chronic kidney disease, stage 3 (moderate); I25.10 Atherosclerotic heart disease of native coronary artery without angina pectoris; I25.2 Old myocardial infarction; F41.8 Other specified anxiety disorders; R56.9 Unspecified convulsions
CPT/HCPCS: 36415; 71045; 80048; 80053; 80299; 81003; 82550; 82553; 83605; 83880; 84484; 85025; 86710; 87040; 87081; 93005; 93306; 94640; 94664; 96374; 96375; 99285; J7620

== ENCOUNTER 2018-08-12 23:21 | Inpatient (IN) | payer MEDICARE, MEDICAID ==
[~2018-08-12] VITALS: Ht 182.9 cm; Wt 174.6 kg
[2018-08-12] MEDS ORDERED: ALBUTEROL2.5 MG/3 M INH (23:35)
[2018-08-12] MEDS ORDERED: LIPITOR80 MG ORAL (23:36)
[2018-08-12] MEDS ORDERED: CLOPIDOGREL75 MG ORAL (23:36)
[2018-08-12] MEDS ORDERED: PROMETHAZINE-C118 M1 ORAL (23:37)
[2018-08-12] MEDS ORDERED: DILTIAZEM HCL120 MG PO (23:38)
[2018-08-12] MEDS ORDERED: FUROSEMIDE40 MG ORAL (23:38)
[2018-08-12] MEDS ORDERED: GABAPENTIN600 MG ORAL (23:39)
[2018-08-12] MEDS ORDERED: ISORDIL30 MG PO (23:39)
[2018-08-12] MEDS ORDERED: MEDROL DOSEPAK4 MG ORAL (23:40)
[2018-08-12] MEDS ORDERED: KEPPRA500 M3 ORAL (23:40)
[2018-08-12] MEDS ORDERED: MORPHINE IR15 MG ORAL (23:41)
[2018-08-12] MEDS ORDERED: ZOFRAN4 M3 ORAL (23:42)
[2018-08-12] MEDS ORDERED: NITROGLYCERIN2.5 M1 SCONJUNC (23:42)
[2018-08-12] MEDS ORDERED: POLYETHYLENE GL17 GM ORAL (23:43)
[2018-08-12] MEDS ORDERED: THEOPHYLLI80 MG/153 PO (23:43)
[2018-08-12] MEDS ORDERED: SPIRIVA INHALE1 PUF1 INH (23:44)
--- NOTE | 2018-08-12 23:57 | NUR ---
ED Nurse Note: Received report. Pt from [facility], c/o SOB and chest pain 03/06. Ambulance personnel said they were in route to [facility] when pt could not breathe and had ALOC. Pt more alert after receiving O2 therapy prior to getting to ER. Pt asking for pain Rx. Will carry out orders and continue to monitor.
[2018-08-13] VITALS (7 sets, daily range): BP systolic 112–153; BP diastolic 67–95
[2018-08-13] MEDS ORDERED: Sodium Chloride 500ML 500 ML IV ONE
[2018-08-13] MEDS ORDERED: Solu-MEDROL 125mg Inj IVP ONE
[2018-08-13] MEDS ORDERED: Norco 5mg/325mg tab ORAL ONE (00:45)
[2018-08-13] MEDS ORDERED: Albuterol/Ipratropium 3ml neb HHN ONE ×2 (00:45)
[2018-08-13 01:45] LABS: BASOPHILS % (AUTO) 0.5 % (0.0-2.0); EOSINOPHILS % (AUTO) 0.4 % (0.0-3.0); HEMATOCRIT 41.4 % (42.0-52.0); HEMOGLOBIN 13.8 G/DL (14.2-18.0); LYMPHOCYTES % (AUTO) 22.1 % (20.0-45.0); MEAN CORPUSCULAR VOLUME 99 FL (80-99); MONOCYTES % (AUTO) 3.7 % (1.0-10.0); NEUTROPHILS % (AUTO) 73.2 % (45.0-75.0); PLATELET COUNT 169 K/UL (150-450); RED BLOOD COUNT 4.18 M/UL (4.70-6.10); RED CELL DISTRIBUTION WIDTH 12.4 % (11.6-14.8); WHITE BLOOD COUNT 9.5 K/UL (4.8-10.8)
[2018-08-13] MEDS ORDERED: Morphine Sulfate 4mg/ml Inj (IV/IM USE ONLY) IVP ONE (01:45)
--- NOTE | 2018-08-13 02:00 | NUR ---
ED Nurse Note: Pt sleeping, no distress noted. Will continue to monitor.
[2018-08-13 02:02] LABS: ANION GAP 5 mmol/L (5-15); BLOOD UREA NITROGEN 21 mg/dL (7-18); CALCIUM 8.5 MG/DL (8.5-10.1); CARBON DIOXIDE 30 MMOL/L (21-32); CHLORIDE 105 MMOL/L (98-107); CREATININE 0.9 MG/DL (0.55-1.30); POTASSIUM 4.6 MMOL/L (3.5-5.1); SODIUM 140 MMOL/L (136-145)
[2018-08-13 02:08] LABS: ALANINE AMINOTRANSFERASE 46 U/L (12-78); ALBUMIN 2.7 G/DL (3.4-5.0); ALBUMIN/GLOBULIN RATIO 0.8 (1.0-2.7); ALKALINE PHOSPHATASE 69 U/L (46-116); ASPARTATE AMINO TRANSFERASE 28 U/L (15-37); BILIRUBIN,TOTAL 0.5 MG/DL (0.2-1.0); CKMB 0.9 NG/ML (0.0-3.6); CREATINE KINASE 85 U/L (26-308)
--- NOTE | 2018-08-13 03:30 | NUR ---
NURSE NOTES: Got report from Dianelys HINOJOSA from ER over the phone.
--- NOTE | 2018-08-13 03:50 | NUR ---
NURSE NOTES: Pt brought up from ER by Dianelys HINOJOSA. Pt does not to stay in a room with someone else and wants to be discharged. He is very angry. He wants his own room. Pt remains in hallway on a gurney. Paged and Destiny of situation. Awaiting response.
--- NOTE | 2018-08-13 04:50 | NUR ---
NURSE NOTES: The charge nurse and nursing shoe repair supervisor finally found a private room for the pt. Initial assessment done. Pt complains of 8/10 pain and wants pain meds. Paged Dr. Nicole and Dr. Dixon for orders. Awaiting orders.
--- NOTE | 2018-08-13 05:45 | NUR ---
NURSE NOTES: Dr. Nicole paged back and said to contact Dr. Dixon for orders. I have previously paged both of them at the same time during the shift. Still awaiting orders.
--- NOTE | 2018-08-13 06:46 | NUR ---
NURSE NOTES: No response from Dr. Dixon yet. Awaiting orders.
[2018-08-13] MEDS ORDERED: LORazepam Inj 2mg/ml 1ml IV PRN (07:15)
[2018-08-13] MEDS ORDERED: Promethazine/Codeine 5ml UD ORAL PRN (07:15)
[2018-08-13] MEDS ORDERED: Nitroglycerin Subl 0.4mg tab SL PRN (07:15)
[2018-08-13] MEDS ORDERED: Morphine Sulfate 4mg/ml Inj (IV/IM USE ONLY) IVP PRN (07:15)
--- NOTE | 2018-08-13 07:23 | NUR ---
NURSE NOTES: Received report from MICAELA Shah. Patient asleep and is in stable condition. No acute distress/SOB noted. Will continue plan of care.
--- NOTE | 2018-08-13 07:24 | NUR ---
HAND-OFF: Report given to Ernesto Manuel. Endorsed plan of care.
--- NOTE | 2018-08-13 07:58 | NUR ---
RESPIRATORY NOTE: received order for sputum inducement. Pt was slightly rude. left specimen cup at bedside for pt after explaining what is needed. no resp distress noted at this time.
[2018-08-13] MEDS: Theophylline ER 100mg ORAL SCH ×2 (08:55→22:11)
[2018-08-13] MEDS: DULoxetine 30mg cap ORAL SCH (08:55)
[2018-08-13] MEDS: Furosemide 40mg tab ORAL SCH (08:56)
[2018-08-13] MEDS ORDERED: Theophylline ER 100mg ORAL SCH (09:00)
[2018-08-13] MEDS: Heparin 5000 units/ml inj SUBQ SCH ×2 (09:04→22:17)
--- NOTE | 2018-08-13 11:45 | Diagnostic Imaging Report ---
Indication: Dyspnea Comparison: 07/21/2018 A single view chest radiograph was obtained. Findings: The study is limited by motion and body habitus. There is suggestion of CHF with prominent vascularity and interstitium. Heart is enlarged. IMPRESSION: Suspected CHF
[2018-08-13] MEDS ORDERED: Solu-MEDROL 125mg Inj IV SCH (12:00)
--- NOTE | 2018-08-13 12:47 | Consultation ---
History of Present Illness General Date patient seen: Aug 13, 2018 Chief Complaint: Chest Pain Present Illness HPI 52 year old male with hx of CAD, HTN, seizures, COPD, morbid obesity, psychosis was on the route from [facility] to [facility] when he developed shortness of breath and chest pain and was rerouted to [facility]. Pt was evaluated in ER and admitted to telemetry for ACS and acute exacerbation of COPD. Allergies: Coded Allergies: ASPIRIN (Verified Allergy, Unknown, 07/14/18) KETOROLAC (Verified Allergy, Unknown, 07/14/18) PENICILLINS (Verified Allergy, Unknown, 07/14/18) Medication History Scheduled Amlodipine Besylate (Norvasc), 5 MG ORAL DAILY, (Reported) Atorvastatin (Lipitor), 40 MG ORAL BEDTIME, (Reported) Atorvastatin Calcium* (Lipitor*), 80 MG ORAL BEDTIME, (Reported) Clopidogrel* (Clopidogrel*), 75 MG ORAL DAILY, (Reported) Docusate Sodium* (Docusate Sodium*), 100 MG ORAL DAILY, (Reported) Duloxetine Hcl* (Cymbalta*), 30 MG ORAL DAILY, (Reported) Furosemide* (Lasix*), 40 MG ORAL EVERY 8 HOURS, (Reported) Furosemide* (Lasix*), 40 MG ORAL DAILY, (Reported) Gabapentin* (Gabapentin*), 600 MG ORAL THREE TIMES A DAY, (Reported) Gabapentin* (Gabapentin*), 600 MG ORAL THREE TIMES A DAY, (Reported) Ipratropium/Albuterol Sulfate (DuoNeb 0.5-3(2.5)mg/3ml), 3 ML HHN Q6HR, ( Reported) Isosorbide Mononitrate (Isosorbide Mononitrate Er), 30 MG PO DAILY, (Reported) Levetiracetam (Keppra Xr), 500 MG ORAL BID, (Reported) Levetiracetam (Levetiracetam), 500 MG ORAL TWICE A DAY, (Reported) Methylprednisolone (Methylprednisolone*), 4 MG ORAL DIRECTED, (Reported) Morphine Sulfate (Morphine Sulfate Er), 15 MG PO DAILY, (Reported) Prednisone* (Prednisone*), 20 MG ORAL DAILY, (Reported) Sennosides (Senna), 17.2 MG PO BEDTIME, (Reported) Theophylline (Theodur*), 100 MG ORAL TWICE A DAY, (Reported) Tiotropium [place] (Spiriva), 0 INH DAILY, (Reported) Scheduled PRN Acetaminophen* (Acetaminophen 325MG Tablet*), 650 MG ORAL Q4H PRN for Mild Pain/ Temp > 100.5, (Reported) Albuterol Sulfate* (Albuterol Sulfate Hhn*), 3 ML INH Q4H PRN for Shortness of Breath, (Reported) Bisacodyl (Dulcolax), 10 MG RC DAILY PRN for IF MOM INEFFECTIVE, (Reported) Codeine/Promethazine Hcl* (Promethazine-Codeine Syrup*), 5 ML ORAL Q4H PRN for For Cough, (Reported) Codeine/Promethazine Hcl* (Promethazine-Codeine Syrup*), 5 ML ORAL Q4H PRN for For Cough, (Reported) Hydrocodone Bit/Acetaminophen 10-325* ([place] 10-325*), 1 TAB ORAL Q4H PRN for Moderate Pain (Pain Scale 4-6), (Reported) Magnesium Hydroxide* (Milk Of Magnesia*), 30 ML ORAL BEDTIME PRN for IF DOCUSATE INEFFECTIVE, (Reported) Morphine HCl (Morphine Sulfate ER), 15 MG ORAL Q6H PRN for For Pain, (Reported) Na Phos,M-B/Na Phos,Di-Ba* (Fleet Enema*), 133 ML RECTAL QOD PRN for IF DULCOLAX INEFFECTIVE, (Reported) Nitroglycerin (Nitrostat), 0.4 MG SL Q5M X3 DOSES PRN for CHEST PAIN, (Reported) Ondansetron* (Zofran*), 4 MG ORAL Q6H PRN for Nausea & Vomiting, (Reported) Ondansetron* (Zofran*), 4 MG ORAL Q6H PRN for Nausea & Vomiting, (Reported) Polyethylene Glycol 3350* (Miralax*), 17 GM ORAL DAILY PRN for Constipation, ( Reported) Polyethylene Glycol 3350* (Polyethylene Glycol 3350*), 17 GM ORAL BEDTIME PRN for Constipation, (Reported) Temazepam* (Restoril*), 15 MG ORAL BEDTIME PRN for Insomnia, (Reported) Miscellaneous Medications Diltiazem Hcl (Diltiazem Hcl), 120 MG PO, (Reported) Isosorbide Dinitrate (Isosorbide Dinitrate), 30 MG GT, (Reported) Nitroglycerin (Nitroglycerin), 0.3 MG SCONJUNC, (Reported) Theophylline Anhydrous (Theophylline), 100 MG PO, (Reported) Patient History Healthcare decision maker Resuscitation status Advanced Directive on File No Past Medical/Surgical History Past Medical/Surgical History: (1) Uncontrolled seizures (2) Morbid obesity (3) Seizures (4) COPD (chronic obstructive pulmonary disease) Review of Systems All Other Systems: negative except mentioned in HPI Physical Exam General Appearance: WD/WN Lines, tubes and drains: peripheral HEENT: normocephalic Neck: non-tender, supple Respiratory/Chest: chest wall non-tender, lungs clear Cardiovascular/Chest: normal peripheral pulses Abdomen: normal bowel sounds Genitourinary/Rectal: normal genital exam Last 24 Hour Vital Signs Date Time Temp Pulse Resp B/P (MAP) Pulse Ox O2 Delivery O2 Flow Rate FiO2 08/13/18 12:00 98.1 87 20 128/90 (103) 96 61 08/13/18 09:00 Room Air 08/13/18 08:55 69 125/76 08/13/18 08:00 77 08/13/18 08:00 69 18 Room Air 21 08/13/18 08:00 98.0 81 20 125/76 (92) 95 61 08/13/18 05:22 Nasal Cannula 2.0 08/13/18 05:00 98.4 61 20 150/86 (107) 94 61 08/13/18 03:13 98.0 64 28 153/89 91 Room Air 08/13/18 02:00 98.1 64 28 153/89 91 Room Air 08/13/18 01:01 72 20 99 Room Air 08/13/18 00:47 67 19 100 Room Air 08/13/18 00:46 67 18 100 Room Air 08/13/18 00:37 64 16 94 Room Air 21 08/13/18 00:36 64 16 Room Air 21 08/13/18 00:08 69 17 Room Air 08/13/18 00:00 98.1 69 17 133/73 94 Room Air 08/12/18 23:23 98.1 88 18 169/89 99 Non-Rebreather 8.0 Intake and Output 08/12/18 08/13/18 18:59 06:59 Intake Total 500 ml Output Total 650 ml Balance -150 ml Intake IV Total 500 ml Output Urine Total 650 ml # Voids 1 Laboratory Tests Test 08/13/18 01:36 White Blood Count 9.5 K/UL (4.8-10.8) Red Blood Count 4.18 M/UL (4.70-6.10) L Hemoglobin 13.8 G/DL (14.2-18.0) L Hematocrit 41.4 % (42.0-52.0) L Mean Corpuscular Volume 99 FL (80-99) Mean Corpuscular Hemoglobin 33.0 PG (27.0-31.0) H Mean Corpuscular Hemoglobin Concent 33.2 G/DL (32.0-36.0) Red Cell Distribution Width 12.4 % (11.6-14.8) Platelet Count 169 K/UL (150-450) Mean Platelet Volume 5.1 FL (6.5-10.1) L Neutrophils (%) (Auto) 73.2 % (45.0-75.0) Lymphocytes (%) (Auto) 22.1 % (20.0-45.0) Monocytes (%) (Auto) 3.7 % (1.0-10.0) Eosinophils (%) (Auto) 0.4 % (0.0-3.0) Basophils (%) (Auto) 0.5 % (0.0-2.0) Sodium Level 140 MMOL/L (136-145) Potassium Level 4.6 MMOL/L (3.5-5.1) Chloride Level 105 MMOL/L (98-107) Carbon Dioxide Level 30 MMOL/L (21-32) Anion Gap 5 mmol/L (5-15) Blood Urea Nitrogen 21 mg/dL (7-18) H Creatinine 0.9 MG/DL (0.55-1.30) Estimat Glomerular Filtration Rate > 60 mL/min (>60) Glucose Level 102 MG/DL (74-106) Calcium Level 8.5 MG/DL (8.5-10.1) Total Bilirubin 0.5 MG/DL (0.2-1.0) Aspartate Amino Transf (AST/SGOT) 28 U/L (15-37) Alanine Aminotransferase (ALT/SGPT) 46 U/L (12-78) Alkaline Phosphatase 69 U/L (46-116) Total Creatine Kinase 85 U/L (26-308) Creatine Kinase MB 0.9 NG/ML (0.0-3.6) Creatine Kinase MB Relative Index 1.0 Troponin I 0.011 ng/mL (0.000-0.056) Pro-B-Type Natriuretic Peptide 235 pg/mL (0-125) H Total Protein 6.1 G/DL (6.4-8.2) L Albumin 2.7 G/DL (3.4-5.0) L Globulin 3.4 g/dL Albumin/Globulin Ratio 0.8 (1.0-2.7) L Microbiology Date/Time Source Procedure Growth Status 08/13/18 00:13 Nasal Nares Influenza Types A,B Antigen (CRISTY) - Final Complete 08/13/18 04:33 Rectum Received Height (Feet): 6 Height (Inches): 10.00 Weight (Pounds): 385 Medications Current Medications Medications (Trade) Dose Ordered Sig/Luis Route PRN Reason Start Time Stop Time Status Last Admin Dose Admin Albuterol/ Ipratropium (Albuterol/ Ipratropium) 3 ml Q4H PRN HHN dyspnea 08/13/18 07:15 08/18/18 07:14 Amlodipine Besylate (Norvasc) 5 mg DAILY ORAL 08/13/18 09:00 09/12/18 08:59 08/13/18 08:55 Atorvastatin Calcium (Lipitor) 40 mg BEDTIME ORAL 08/13/18 21:00 09/12/18 20:59 Clopidogrel Bisulfate (Plavix) 75 mg DAILY ORAL 08/13/18 09:00 09/12/18 08:59 08/13/18 08:55 Dextrose (Dextrose 50%) 25 ml Q30M PRN IV Hypoglycemia 08/13/18 07:15 09/12/18 07:14 Dextrose (Dextrose 50%) 50 ml Q30M PRN IV Hypoglycemia 08/13/18 07:15 09/12/18 07:14 Duloxetine HCl (Cymbalta) 30 mg DAILY ORAL 08/13/18 09:00 09/12/18 08:59 08/13/18 08:55 Furosemide (Lasix) 40 mg DAILY ORAL 08/13/18 09:00 09/12/18 08:59 08/13/18 08:56 Gabapentin (Neurontin) 600 mg THREE TIMES A DAY ORAL 08/13/18 09:00 09/12/18 08:59 08/13/18 08:55 Heparin Sodium (Porcine) (Heparin 5000 units/ml) 5,000 units EVERY 12 HOURS SUBQ 08/13/18 09:00 09/12/18 08:59 08/13/18 09:04 Levetiracetam (Keppra) 500 mg Q12HR ORAL 08/13/18 09:00 09/12/18 08:59 08/13/18 08:55 Lorazepam (Ativan 2mg/ml 1ml) 0.5 mg Q4H PRN IV For Anxiety 08/13/18 07:15 08/20/18 07:14 Methylprednisolone Sodium Succinate (Solu-MEDROL) 60 mg EVERY 6 HOURS IV 08/13/18 12:00 09/12/18 11:59 Morphine Sulfate (Morphine Sulfate) 2 mg Q4H PRN IVP severe pain 7-10 08/13/18 07:15 08/20/18 07:14 08/13/18 08:56 Nitroglycerin (Ntg) 0.4 mg Q5M X 3 DOSES PRN SL Prn Chest Pain 08/13/18 07:15 09/12/18 07:14 Ondansetron HCl (Zofran) 4 mg Q6H PRN IVP Nausea & Vomiting 08/13/18 07:15 09/12/18 07:14 Promethazine HCl/ Codeine (Phenergan with Codeine) 5 ml Q6H PRN ORAL cough 08/13/18 07:15 09/12/18 07:14 Temazepam (Restoril) 15 mg HSPRN PRN ORAL Insomnia 08/13/18 20:00 08/20/18 19:59 Theophylline (George-Dur) 100 mg EVERY 12 HOURS ORAL 08/13/18 09:00 09/12/18 08:59 08/13/18 08:55 Assessment/Plan Problem List: (1) COPD (chronic obstructive pulmonary disease) ICD Codes: J44.9 - Chronic obstructive pulmonary disease, unspecified SNOMED: 48112971 (2) Seizures ICD Codes: R56.9 - Unspecified convulsions SNOMED: 93849404 (3) Peripheral edema ICD Codes: R60.9 - Edema, unspecified SNOMED: 565777453 (4) Morbid obesity ICD Codes: E66.01 - Morbid (severe) obesity due to excess calories SNOMED: 623404113 Assessment/Plan respiratory treatment check sputum symptomatic treatment cardiology evaluation pain management. dvt prophylaxis. Bill Dixon MD Aug 13, 2018 12:47
[2018-08-13] MEDS: Morphine Sulfate 4mg/ml Inj (IV/IM USE ONLY) IVP PRN ×2 (12:50→17:19)
[2018-08-13] MEDS ORDERED: LORazepam 1mg tab ORAL PRN (15:00)
--- NOTE | 2018-08-13 17:11 | NUR ---
CASE MANAGEMENT:REVIEW BIBA FROM [facility] CC: CHEST PAIN. SOB. ELEVATED BP SI: COPD EXACERBATION 98.0 88 18 169/89 99% ON NON REBREATHER H/H-13.8/41.4 IS:IV SOLUMEDROL DUONEB 500CC NS BOLUS IV ZOFRAN IV MORPHINE IV LASIX PERCOCET CXR : TO TELEMETRY IS: LASIX PO QD INTERQUAL CRITERIA MET
--- NOTE | 2018-08-13 17:45 | History and Physical Report ---
DATE OF ADMISSION: 08/13/2018 TIME SEEN: 2 p.m. CONSULTANTS: 1. Bill Dixon M.D. 2. Carlos Martins M.D. CHIEF COMPLAINT: Chest pain and shortness of breath. BRIEF HISTORY: This is a 52-year-old male from [facility], who presented to [facility] last night with increased shortness of breath and slight chest pain, substernal, intermittent. No radiation. No loss of consciousness. The patient is diagnosed with COPD exacerbation and chest pain, admitted to telemetry for further care. Currently, slightly anxious in bed and oriented x3. Slight short of breath. Slight wheezing. PAST MEDICAL HISTORY: Include hypertension, seizure, COPD, CAD, and morbid obesity. PAST SURGICAL HISTORY: Unknown. MEDICATIONS: Methylprednisolone, atorvastatin, temazepam, morphine, amlodipine, clopidogrel, furosemide, gabapentin, heparin. ALLERGIES: Aspirin, Ketoralac, and penicillin. SOCIAL HISTORY: The patient refused to discuss. PHYSICAL EXAMINATION: GENERAL: Slightly anxious in bed, oriented x3. Slight short of breath. VITAL SIGNS: Temperature 98 degrees, pulse 87, respiratory rate , and blood pressure 128/90. CARDIOVASCULAR: No murmur. LUNGS: Poor air exchange. Slight wheeze bilaterally. ABDOMEN: Bowel sounds positive. Nontender. Nondistended. EXTREMITIES: No cyanosis or clubbing. 1+ edema. NEUROLOGIC: The patient moves all extremities, slightly weak. LABORATORY AND DIAGNOSTIC DATA: Hemoglobin and hematocrit 13.8/41. BMP show BUN 21. Troponin 0.011. BNP is 235. Albumin is 2.7. ASSESSMENT: 1. Shortness of breath. 2. Chest pain. 3. Obesity. 4. Edema. 5. Anxiety. 6. Anemia. 7. Malnutrition. PLAN: 1. O2 and pulmonary treatment. 2. Antibiotics p.r.n. 3. Blood pressure control. 4. Seizure control. 5. Dietary followup. 6. Resume home medications. 7. Taper off steroids if possible. 8. PT and Dietary evaluation. 9. CBC and BMP in the morning. 10. We will add Dr. Mcghee and Dr. Martins to consult. Ernesto Nicole D.O. DR: ALAINA JOB#: [id number] CC:
--- NOTE | 2018-08-13 18:15 | Consultation ---
DATE OF CONSULTATION: 08/13/2018 INITIAL PSYCHIATRIC CONSULTATION: CONSULTING PHYSICIAN: Laney Mcghee M.D. HISTORY OF PRESENT ILLNESS: The patient is a 52-year-old male patient with COPD. This patient came in due to COPD exacerbation and he also has a multitude of other medical problems. This patient is seen and admitted for that reason. In addition to his COPD exacerbation, this patient also has chronic depression and anxiety, currently on Cymbalta and Neurontin and that is why daily psychiatric consultation requested for this patient. So, he is endorsing that he has relatively high levels of depression and anxiety worsened by stress of his medical illness and he endorses intermittent bouts of helplessness, hopelessness, low energy, poor appetite, and loss of interest in activity, but also chronic pain as well. He denies any suicidal or homicidal ideations at this time. PAST MEDICAL HISTORY: The patient has a history of right heart failure, COPD, seizure disorder, and peripheral edema. ALLERGIES: He has allergies to aspirin, penicillin, and ketorolac. MEDICATIONS: The patient's psychotropic medications on admission, this patient is normally taking a medication regimen consisting of Cymbalta at a dose of 30 mg p.o. daily and Neurontin 600 mg 3 times a day. SUBSTANCE ABUSE HISTORY: Denies any recent drug or alcohol use. PAIN ASSESSMENT: 10/04 pain. DEVELOPMENTAL PROBLEMS: Denies. FAMILY PSYCHIATRIC HISTORY: Denies. SOCIAL HISTORY: Lives in [facility]. He is financially supported by [employer] and Medicare. PSYCHIATRIC HISTORY: History of major depressive disorder, severe, recurrent, rule out generalized anxiety disorder. He has been seen by Psychiatry a numerous times. STRENGTHS: He is motivated to get better and has a place to live. WEAKNESSES: He is impulsive and he has support system. MENTAL STATUS EXAMINATION: This is a male patient 52 years old. His appearance is disheveled. Attitude, irritable and agitated. Affect is guarded and restricted. Intellect poor, does not know the last 4 Presidents. Orientation x3 person, place, and time, but not to situation. Speech is normal volume and slow. Thought process is slightly disorganized. Thought content, he denies auditory or visual hallucinations or delusions. Abstract reasoning is good because he does understand problems. He does not have concrete thinking. Insight is relatively poor because he does not understand the severity of his mood disorder. Judgment is poor because he does not accept the consequences for his actions. Judgment is poor. He denies any suicidal or homicidal ideation. Short-term memory 3/3 word recall after 5 minutes delay with good short-term memory. Long-term memory is intact based on the knowledge of long-term events life such as the high school that he went to. DIAGNOSES: PSYCHIATRIC: Major depressive disorder, severe, recurrent without psychotic features. MEDICAL: COPD, hyperlipidemia, seizure disorder. PSYCHOSOCIAL STRESSORS: Financial. Functional impairment is mild. PLAN: I am going to continue treatment with Cymbalta 30 mg daily and Neurontin 600 mg 3 times a day. Also I am going to add a dose of Ativan 1 mg every 6 hours p.r.n. anxiety, agitation and provide him with 20 minutes of cognitive behavioral therapy to help him identify negative thoughts and help him convert those negative thoughts to more positive thinking to reduce depression, anxiety, and suicidality and to help him to have more adaptive behavior pattern. Chart was reviewed. Discussed with staff. Laney Mcghee M.D. DR: GEENA JOB#: [id number] CC:
--- NOTE | 2018-08-13 19:22 | NUR ---
HAND-OFF: Report given to MICAELA Contreras. Patient is in stable condition. Endorsed plan of care.
--- NOTE | 2018-08-13 19:30 | NUR ---
NURSE NOTES: Report received from Bubba HINOJOSA. Pt is resting comfortably in bed. Pt is easily arousable to name and light touch. Pt is awake, alert, and oriented x4. Pt is on 2L O2 via nasal cannula and breathing is even and unlabored. No acute distress noted. IV site is asymptomatic, patent, and intact. Bed is in lowest position with brake engaged and side rails up x3. Call light and side table placed within reach. Will continue to monitor.
--- NOTE | 2018-08-13 20:04 | Cardiology Progress Note ---
Assessment/Plan Assessment/Plan The patient is seen and examined, full consult note will be dictated. Objective Last 24 Hour Vital Signs Date Time Temp Pulse Resp B/P (MAP) Pulse Ox O2 Delivery O2 Flow Rate FiO2 08/13/18 16:00 98.0 88 21 128/95 (106) 98 88 08/13/18 16:00 81 08/13/18 12:00 80 08/13/18 12:00 98.1 87 20 128/90 (103) 96 61 08/13/18 09:00 Room Air 08/13/18 08:55 69 125/76 08/13/18 08:00 77 08/13/18 08:00 69 18 Room Air 21 08/13/18 08:00 98.0 81 20 125/76 (92) 95 61 08/13/18 05:22 Nasal Cannula 2.0 08/13/18 05:00 98.4 61 20 150/86 (107) 94 61 08/13/18 03:13 98.0 64 28 153/89 91 Room Air 08/13/18 02:00 98.1 64 28 153/89 91 Room Air 08/13/18 01:01 72 20 99 Room Air 08/13/18 00:47 67 19 100 Room Air 08/13/18 00:46 67 18 100 Room Air 08/13/18 00:37 64 16 94 Room Air 21 08/13/18 00:36 64 16 Room Air 21 08/13/18 00:08 69 17 Room Air 08/13/18 00:00 98.1 69 17 133/73 94 Room Air 08/12/18 23:23 98.1 88 18 169/89 99 Non-Rebreather 8.0 Intake and Output 08/12/18 08/13/18 19:00 07:00 Intake Total 500 ml Output Total 650 ml Balance -150 ml Intake IV Total 500 ml Output Urine Total 650 ml # Voids 1 Laboratory Tests Test 08/13/18 01:36 White Blood Count 9.5 K/UL (4.8-10.8) Red Blood Count 4.18 M/UL (4.70-6.10) L Hemoglobin 13.8 G/DL (14.2-18.0) L Hematocrit 41.4 % (42.0-52.0) L Mean Corpuscular Volume 99 FL (80-99) Mean Corpuscular Hemoglobin 33.0 PG (27.0-31.0) H Mean Corpuscular Hemoglobin Concent 33.2 G/DL (32.0-36.0) Red Cell Distribution Width 12.4 % (11.6-14.8) Platelet Count 169 K/UL (150-450) Mean Platelet Volume 5.1 FL (6.5-10.1) L Neutrophils (%) (Auto) 73.2 % (45.0-75.0) Lymphocytes (%) (Auto) 22.1 % (20.0-45.0) Monocytes (%) (Auto) 3.7 % (1.0-10.0) Eosinophils (%) (Auto) 0.4 % (0.0-3.0) Basophils (%) (Auto) 0.5 % (0.0-2.0) Sodium Level 140 MMOL/L (136-145) Potassium Level 4.6 MMOL/L (3.5-5.1) Chloride Level 105 MMOL/L (98-107) Carbon Dioxide Level 30 MMOL/L (21-32) Anion Gap 5 mmol/L (5-15) Blood Urea Nitrogen 21 mg/dL (7-18) H Creatinine 0.9 MG/DL (0.55-1.30) Estimat Glomerular Filtration Rate > 60 mL/min (>60) Glucose Level 102 MG/DL (74-106) Calcium Level 8.5 MG/DL (8.5-10.1) Total Bilirubin 0.5 MG/DL (0.2-1.0) Aspartate Amino Transf (AST/SGOT) 28 U/L (15-37) Alanine Aminotransferase (ALT/SGPT) 46 U/L (12-78) Alkaline Phosphatase 69 U/L (46-116) Total Creatine Kinase 85 U/L (26-308) Creatine Kinase MB 0.9 NG/ML (0.0-3.6) Creatine Kinase MB Relative Index 1.0 Troponin I 0.011 ng/mL (0.000-0.056) Pro-B-Type Natriuretic Peptide 235 pg/mL (0-125) H Total Protein 6.1 G/DL (6.4-8.2) L Albumin 2.7 G/DL (3.4-5.0) L Globulin 3.4 g/dL Albumin/Globulin Ratio 0.8 (1.0-2.7) L Microbiology Date/Time Source Procedure Growth Status 08/13/18 00:13 Nasal Nares Influenza Types A,B Antigen (CRISTY) - Final Complete 08/13/18 04:33 Rectum Received Carlos Martins MD Aug 13, 2018 20:04
--- NOTE | 2018-08-13 20:16 | NUR ---
NURSE NOTES: Pt is requesting something "stronger than morphine" for 9/10 chest pain described as "sharp" without radiation and bilateral lower extremity pain described as "throbbing." Pt refusing nitro for chest pain because pt states that "I get bad migraines with that." Pt is requesting Dilaudid 2mg IVP one time. MD Dixon notified. Per MD Dixon, okay to give Dilaudid 2mg IVP one time. Orders noted and carried out. Will continue to monitor pain.
[2018-08-13] MEDS: Albuterol/Ipratropium 3ml neb HHN PRN (20:44)
[2018-08-13] MEDS: Atorvastatin 20mg tab ORAL SCH (22:10)
[2018-08-14] VITALS: BP 142/89
--- NOTE | 2018-08-14 00:24 | NUR ---
HAND-OFF: Report given to Sylvia Payne RN. Pt is resting in bed in stable condition. No acute distress noted. Endorsed plan of care.
[2018-08-14] MEDS: Morphine Sulfate 4mg/ml Inj (IV/IM USE ONLY) IVP PRN ×6 (00:41→22:41)
--- NOTE | 2018-08-14 00:57 | NUR ---
NURSE NOTES: patient received. patient in no acute distress at this time. patient complains of no pain at this time. patient A&O x4. patient complains of 7/10 pain at this time. see emar. IV intact and asymptomatic. call light within reach. bed in lowest position and locked. will continue to monitor.
--- NOTE | 2018-08-14 01:58 | Emergency Room Report ---
History of Present Illness General Chief Complaint: Chest Pain Source: Patient Present Illness HPI Patient is a 52-year-old male presented after increased chest discomfort and difficulty breathing. Patient a prior history of morbid obesity as well as COPD. He was sent in from halfway. Patient was reportedly diverted from transfer to a [facility] urgent care after he developed some chest discomfort. Patient had been having increased nonproductive cough. Patient reports being a smoker. He reports having sharp chest discomfort. Patient states that he has allergies to aspirin as well as Toradol. He reportedly has some prior history of sleep apnea. Patient was brought in by ambulance on a nonrebreather mask and was noted to have been somewhat more somnolent. Allergies: Coded Allergies: ASPIRIN (Verified Allergy, Unknown, 07/14/18) KETOROLAC (Verified Allergy, Unknown, 07/14/18) PENICILLINS (Verified Allergy, Unknown, 07/14/18) Patient History Past Medical History: see triage record Reviewed Nursing Documentation: PMH: Agreed; PSxH: Agreed Nursing Documentation-PMH Hx Cardiac Problems: Yes - CHF, akf, ACBG, HYPER LYP Hx Hypertension: Yes Hx COPD: Yes Hx Cancer: No Hx Gastrointestinal Problems: Yes History Of Psychiatric Problem: Yes - DEPRESSION Hx Neurological Problems: Yes Hx Seizures: Yes - EPILEPSY Review of Systems All Other Systems: negative except mentioned in HPI Physical Exam Vital Signs Date Time Temp Pulse Resp B/P (MAP) Pulse Ox O2 Delivery O2 Flow Rate FiO2 08/12/18 23:23 98.1 88 18 169/89 99 Non-Rebreather 8.0 08/13/18 00:36 21 Sp02 EP Interpretation: reviewed, normal General Appearance: normal inspection, well appearing, no apparent distress, obese, Chronically Ill Head: atraumatic ENT: normal ENT inspection, hearing grossly normal, normal voice Neck: normal inspection, full range of motion, supple, no bony tend Respiratory: normal inspection, no respiratory distress, no retraction, wheezing, other - hypoventilatory Cardiovascular #1: regular rate, rhythm Gastrointestinal: normal inspection, normal bowel sounds, non tender, soft, no guarding, no hernia Genitourinary: no CVA tenderness Musculoskeletal: normal inspection, back normal, normal range of motion Neurologic: normal inspection, alert, other - initially somnolent, improved after supplemental oxygen discontinued Psychiatric: normal inspection, judgement/insight normal, mood/affect normal Skin: normal inspection, normal color, no rash Medical Decision Making Diagnostic Impression: Primary Impression: COPD (chronic obstructive pulmonary disease) ER Course Patient presented for shortness of breath. Differential included but was not limited to anemia, pneumonia, pneumothorax, myocardial infarction, pericardial effusion, congestive heart failure, acidosis. Patient was noted to initially be somewhat somnolent. Supplemental oxygen was removed due to likely carbon dioxide retention. Patient was noted to have improvement in his mental status. Patient subsequently was more alert.patient was given breathing treatments as well as IV steroids. He was noted to have some continued chest discomfort. Patient's pain appears to be chronic and musculoskeletal.Patient was given morphine for pain.Patient's troponin was noted to be negative.Dr. Ernesto Nicole was contacted for inpatient management due to primary care physician. Labs Test 08/13/18 01:36 White Blood Count 9.5 K/UL (4.8-10.8) Red Blood Count 4.18 M/UL (4.70-6.10) Hemoglobin 13.8 G/DL (14.2-18.0) Hematocrit 41.4 % (42.0-52.0) Mean Corpuscular Volume 99 FL (80-99) Mean Corpuscular Hemoglobin 33.0 PG (27.0-31.0) Mean Corpuscular Hemoglobin Concent 33.2 G/DL (32.0-36.0) Red Cell Distribution Width 12.4 % (11.6-14.8) Platelet Count 169 K/UL (150-450) Mean Platelet Volume 5.1 FL (6.5-10.1) Neutrophils (%) (Auto) 73.2 % (45.0-75.0) Lymphocytes (%) (Auto) 22.1 % (20.0-45.0) Monocytes (%) (Auto) 3.7 % (1.0-10.0) Eosinophils (%) (Auto) 0.4 % (0.0-3.0) Basophils (%) (Auto) 0.5 % (0.0-2.0) Sodium Level 140 MMOL/L (136-145) Potassium Level 4.6 MMOL/L (3.5-5.1) Chloride Level 105 MMOL/L (98-107) Carbon Dioxide Level 30 MMOL/L (21-32) Anion Gap 5 mmol/L (5-15) Blood Urea Nitrogen 21 mg/dL (7-18) Creatinine 0.9 MG/DL (0.55-1.30) Estimat Glomerular Filtration Rate > 60 mL/min (>60) Glucose Level 102 MG/DL (74-106) Calcium Level 8.5 MG/DL (8.5-10.1) Total Bilirubin 0.5 MG/DL (0.2-1.0) Aspartate Amino Transf (AST/SGOT) 28 U/L (15-37) Alanine Aminotransferase (ALT/SGPT) 46 U/L (12-78) Alkaline Phosphatase 69 U/L (46-116) Total Creatine Kinase 85 U/L (26-308) Creatine Kinase MB 0.9 NG/ML (0.0-3.6) Creatine Kinase MB Relative Index 1.0 Troponin I 0.011 ng/mL (0.000-0.056) Pro-B-Type Natriuretic Peptide 235 pg/mL (0-125) Total Protein 6.1 G/DL (6.4-8.2) Albumin 2.7 G/DL (3.4-5.0) Globulin 3.4 g/dL Albumin/Globulin Ratio 0.8 (1.0-2.7) EKG Diagnostic Results Rate: normal Rhythm: NSR ST Segments: no acute changes Last Vital Signs Date Time Temp Pulse Resp B/P (MAP) Pulse Ox O2 Delivery O2 Flow Rate FiO2 08/14/18 00:00 65 08/14/18 00:00 98.2 18 142/89 (106) 99 08/13/18 21:00 Room Air 08/13/18 20:50 2.0 28 Status: unchanged Disposition: ADMITTED INPATIENT Condition: Serious Referrals: Ernesto Nicole DO (PCP) Chase Hager MD Aug 14, 2018 01:58
[2018-08-14 04:00] VITALS: BP 170/71
--- NOTE | 2018-08-14 04:43 | NUR ---
NURSE NOTES: patient keeps turning and moving around causing his heart monitor to turn off. when i attempt to turn it back on he tells me its working and to leave him alone. refuses to let me turn it back on. charge nurse and monitor. tech notified. bus driver/monitor and [employer] attempted as well, to no avail.
--- NOTE | 2018-08-14 07:06 | NUR ---
HAND-OFF: Report given to MICAELA mancilla.a;MICAELA maddox
[2018-08-14 07:35] LABS: BASOPHILS % (AUTO) 0.3 % (0.0-2.0); HEMATOCRIT 41.6 % (42.0-52.0); LYMPHOCYTES % (AUTO) 11.8 % (20.0-45.0); MEAN CORPUSCULAR VOLUME 99 FL (80-99); MONOCYTES % (AUTO) 5.1 % (1.0-10.0); NEUTROPHILS % (AUTO) 82.9 % (45.0-75.0); PLATELET COUNT 174 K/UL (150-450); RED CELL DISTRIBUTION WIDTH 12.2 % (11.6-14.8); WHITE BLOOD COUNT 14.9 K/UL (4.8-10.8)
--- NOTE | 2018-08-14 07:48 | General Progress Note ---
Assessment/Plan Problem List: (1) Morbid obesity ICD Codes: E66.01 - Morbid (severe) obesity due to excess calories SNOMED: 909307256 (2) Peripheral edema ICD Codes: R60.9 - Edema, unspecified SNOMED: 524912192 (3) COPD (chronic obstructive pulmonary disease) ICD Codes: J44.9 - Chronic obstructive pulmonary disease, unspecified SNOMED: 97304903 Status: stable, progressing Assessment/Plan o2 pulm tx taper steroids pt diet cbc bmp am dc plan Subjective Constitutional: Reports: weakness Respiratory: Reports: shortness of breath Allergies: Coded Allergies: ASPIRIN (Verified Allergy, Unknown, 07/14/18) KETOROLAC (Verified Allergy, Unknown, 07/14/18) PENICILLINS (Verified Allergy, Unknown, 07/14/18) All Systems: reviewed and negative except above Subjective sleepy calm Objective Last 24 Hour Vital Signs Date Time Temp Pulse Resp B/P (MAP) Pulse Ox O2 Delivery O2 Flow Rate FiO2 08/14/18 04:00 98.7 61 18 170/71 (104) 90 61 08/14/18 03:00 86 08/14/18 00:00 65 08/14/18 00:00 98.2 73 18 142/89 (106) 99 73 08/13/18 21:00 Room Air 08/13/18 20:50 56 20 96 Nasal Cannula 2.0 28 08/13/18 20:47 Nasal Cannula 3.0 32 08/13/18 20:46 96 Nasal Cannula 3.0 32 08/13/18 20:36 82 20 97 Nasal Cannula 4.0 36 08/13/18 20:32 82 20 Nasal Cannula 4.0 36 08/13/18 20:00 100 08/13/18 20:00 98.5 92 17 112/67 (82) 97 92 08/13/18 16:00 98.0 88 21 128/95 (106) 98 88 08/13/18 16:00 81 08/13/18 12:00 80 08/13/18 12:00 98.1 87 20 128/90 (103) 96 61 08/13/18 09:00 Room Air 08/13/18 08:55 69 125/76 08/13/18 08:00 77 08/13/18 08:00 69 18 Room Air 21 08/13/18 08:00 98.0 81 20 125/76 (92) 95 61 Intake and Output 08/13/18 08/14/18 19:00 07:00 # Voids 4 Laboratory Tests 08/14/18 06:55: White Blood Count 14.9#H, Red Blood Count 4.20L, Hemoglobin 14.0L, Hematocrit 41.6L, Mean Corpuscular Volume 99, Mean Corpuscular Hemoglobin 33.2H, Mean Corpuscular Hemoglobin Concent 33.6, Red Cell Distribution Width 12.2, Platelet Count 174, Mean Platelet Volume 5.2L, Neutrophils (%) (Auto) 82.9H, Lymphocytes (%) (Auto) 11.8L, Monocytes (%) (Auto) 5.1, Eosinophils (%) (Auto) 0.0, Basophils (%) (Auto) 0.3, Sodium Level [Pending], Potassium Level [Pending], Chloride Level [Pending], Carbon Dioxide Level [Pending], Blood Urea Nitrogen [ Pending], Creatinine [Pending], Estimat Glomerular Filtration Rate [Pending], Glucose Level [Pending], Calcium Level [Pending] Height (Feet): 6 Height (Inches): 10.00 Weight (Pounds): 385 General Appearance: lethargic EENT: normal ENT inspection Neck: normal alignment Cardiovascular: normal peripheral pulses, normal rate, regular rhythm Respiratory/Chest: chest wall non-tender, lungs clear, normal breath sounds Abdomen: normal bowel sounds, non tender, soft Extremities: normal inspection Edema: 1+ Arm (L), 1+ Arm (R), 1+ Leg (L), 1+ Leg (R), 1+ Pedal (L), 1+ Pedal ( R), 1+ Generalized Neurologic: motor weakness Skin: normal pigmentation, warm/dry Ernesto Nicole DO Aug 14, 2018 07:48
--- NOTE | 2018-08-14 07:50 | NUR ---
NURSE NOTES: Received report from Mar Phillip. Bed is in lowest position. Side rails up X2, and call light is within reach. Will continue to monitor.
[2018-08-14 07:54] LABS: ANION GAP 3 mmol/L (5-15); BLOOD UREA NITROGEN 25 mg/dL (7-18); CALCIUM 8.5 MG/DL (8.5-10.1); CARBON DIOXIDE 32 MMOL/L (21-32); CHLORIDE 105 MMOL/L (98-107); POTASSIUM 4.5 MMOL/L (3.5-5.1); SODIUM 140 MMOL/L (136-145)
[2018-08-14 08:00] VITALS: BP 152/77
--- NOTE | 2018-08-14 08:05 | NUR ---
NURSE NOTES: Patient is refusing heart monitor, padded side rails, and having side rails up. Explained risks. Pt verbalized understanding. Still refuses to comply. Will continue to monitor.
[2018-08-14] MEDS: Furosemide 40mg tab ORAL SCH (09:01)
[2018-08-14] MEDS: Theophylline ER 100mg ORAL SCH ×2 (09:02→20:38)
[2018-08-14] MEDS: Solu-MEDROL 125mg Inj IV SCH (09:02)
[2018-08-14] MEDS: DULoxetine 30mg cap ORAL SCH (09:02)
[2018-08-14] MEDS: Heparin 5000 units/ml inj SUBQ SCH ×2 (09:06→20:33)
--- NOTE | 2018-08-14 10:53 | NUR ---
REHAB MED PT NOTE CONSULT RECEIVED, ALEXANDR COMPLTED, PATIENT WILL BENEFIT FROM SKILLED PT DURING STAY FOR RETURN TO [facility]. RECOMMEND SNF AT [place]. PLAN OF CARE INITIATED. MAYTE SEGAL PT DPT Addendum: 08/14/18 at 1053 by MAYTE SEGAL PT Amended: Links added.
[2018-08-14 12:00] VITALS: BP 152/80
--- NOTE | 2018-08-14 12:49 | Pulmonology Progress Note ---
Assessment/Plan Problems: (1) COPD (chronic obstructive pulmonary disease) (2) Seizures (3) Peripheral edema (4) Morbid obesity Assessment/Plan f/u cardiology recommendations pt wants dilaudid for his knee pain respiratory condition improving titrate fio2 to sat of 92% dvt prophylaxis. Subjective ROS Limited/Unobtainable: No Constitutional: Reports: no symptoms HEENT: Repors: no symptoms Allergies: Coded Allergies: ASPIRIN (Verified Allergy, Unknown, 07/14/18) KETOROLAC (Verified Allergy, Unknown, 07/14/18) PENICILLINS (Verified Allergy, Unknown, 07/14/18) Objective Last 24 Hour Vital Signs Date Time Temp Pulse Resp B/P (MAP) Pulse Ox O2 Delivery O2 Flow Rate FiO2 08/14/18 12:00 97.5 92 24 152/80 (104) 100 61 08/14/18 09:44 Nasal Cannula 3.0 32 08/14/18 09:44 75 16 Nasal Cannula 3.0 32 08/14/18 09:44 95 Nasal Cannula 3.0 32 08/14/18 09:03 92 152/77 08/14/18 09:00 Room Air 08/14/18 08:00 97.7 92 23 152/77 (102) 90 61 08/14/18 04:00 98.7 61 18 170/71 (104) 90 61 08/14/18 03:00 86 08/14/18 00:00 65 08/14/18 00:00 98.2 73 18 142/89 (106) 99 73 08/13/18 21:00 Room Air 08/13/18 20:50 56 20 96 Nasal Cannula 2.0 28 08/13/18 20:47 Nasal Cannula 3.0 32 08/13/18 20:46 96 Nasal Cannula 3.0 32 08/13/18 20:36 82 20 97 Nasal Cannula 4.0 36 08/13/18 20:32 82 20 Nasal Cannula 4.0 36 08/13/18 20:00 100 08/13/18 20:00 98.5 92 17 112/67 (82) 97 92 08/13/18 16:00 98.0 88 21 128/95 (106) 98 88 08/13/18 16:00 81 Intake and Output 08/13/18 08/14/18 18:59 06:59 # Voids 4 General Appearance: no acute distress HEENT: normocephalic, atraumatic Respiratory/Chest: chest wall non-tender, lungs clear Cardiovascular: normal peripheral pulses, normal rate Abdomen: normal bowel sounds, soft, non tender Genitourinary: normal external genitalia Skin: no lesions Neurologic/Psychiatric: color coater II-XII grossly normal Microbiology Date/Time Source Procedure Growth Status 08/13/18 00:13 Nasal Nares Influenza Types A,B Antigen (CRISTY) - Final Complete 08/13/18 04:33 Rectum Received Laboratory Tests 08/14/18 06:55: White Blood Count 14.9#H, Red Blood Count 4.20L, Hemoglobin 14.0L, Hematocrit 41.6L, Mean Corpuscular Volume 99, Mean Corpuscular Hemoglobin 33.2H, Mean Corpuscular Hemoglobin Concent 33.6, Red Cell Distribution Width 12.2, Platelet Count 174, Mean Platelet Volume 5.2L, Neutrophils (%) (Auto) 82.9H, Lymphocytes (%) (Auto) 11.8L, Monocytes (%) (Auto) 5.1, Eosinophils (%) (Auto) 0.0, Basophils (%) (Auto) 0.3, Sodium Level 140, Potassium Level 4.5, Chloride Level 105, Carbon Dioxide Level 32, Anion Gap 3L, Blood Urea Nitrogen 25H, Creatinine 1.0, Estimat Glomerular Filtration Rate > 60, Glucose Level 110H, Calcium Level 8.5 Current Medications Medications (Trade) Dose Ordered Sig/Luis Route PRN Reason Start Time Stop Time Status Last Admin Dose Admin Albuterol/ Ipratropium (Albuterol/ Ipratropium) 3 ml Q4H PRN HHN dyspnea 08/13/18 07:15 08/18/18 07:14 08/13/18 20:44 Amlodipine Besylate (Norvasc) 5 mg DAILY ORAL 08/13/18 09:00 09/12/18 08:59 08/14/18 09:03 Atorvastatin Calcium (Lipitor) 40 mg BEDTIME ORAL 08/13/18 21:00 09/12/18 20:59 08/13/18 22:10 Clopidogrel Bisulfate (Plavix) 75 mg DAILY ORAL 08/13/18 09:00 09/12/18 08:59 08/14/18 09:02 Dextrose (Dextrose 50%) 25 ml Q30M PRN IV Hypoglycemia 1/17/19 07:15 09/12/18 07:14 Dextrose (Dextrose 50%) 50 ml Q30M PRN IV Hypoglycemia 08/13/18 07:15 09/12/18 07:14 Duloxetine HCl (Cymbalta) 30 mg DAILY ORAL 08/13/18 09:00 09/12/18 08:59 08/14/18 09:02 Furosemide (Lasix) 40 mg DAILY ORAL 08/13/18 09:00 09/12/18 08:59 08/14/18 09:01 Gabapentin (Neurontin) 600 mg THREE TIMES A DAY ORAL 08/13/18 09:00 09/12/18 08:59 08/14/18 09:02 Heparin Sodium (Porcine) (Heparin 5000 units/ml) 5,000 units EVERY 12 HOURS SUBQ 08/13/18 09:00 09/12/18 08:59 08/14/18 09:06 Levetiracetam (Keppra) 500 mg Q12HR ORAL 08/13/18 09:00 09/12/18 08:59 08/14/18 09:02 Lorazepam (Ativan 2mg/ml 1ml) 0.5 mg Q4H PRN IV For Anxiety 08/13/18 07:15 08/20/18 07:14 Lorazepam (Ativan) 1 mg Q6H PRN ORAL For Anxiety 08/13/18 15:00 08/20/18 14:59 Methylprednisolone Sodium Succinate (Solu-MEDROL) 60 mg DAILY IV 08/14/18 09:00 09/12/18 11:59 08/14/18 09:02 Morphine Sulfate (Morphine Sulfate) 4 mg Q4H PRN IVP severe pain 7-10 08/13/18 12:45 08/20/18 12:44 08/14/18 10:17 Nitroglycerin (Ntg) 0.4 mg Q5M X 3 DOSES PRN SL Prn Chest Pain 08/13/18 07:15 09/12/18 07:14 Ondansetron HCl (Zofran) 4 mg Q6H PRN IVP Nausea & Vomiting 08/13/18 07:15 09/12/18 07:14 Promethazine HCl/ Codeine (Phenergan with Codeine) 5 ml Q6H PRN ORAL cough 08/13/18 07:15 09/12/18 07:14 Temazepam (Restoril) 15 mg HSPRN PRN ORAL Insomnia 08/13/18 20:00 08/20/18 19:59 Theophylline (George-Dur) 100 mg EVERY 12 HOURS ORAL 08/13/18 09:00 09/12/18 08:59 08/14/18 09:02 Bill Dixon MD Aug 14, 2018 12:49
[2018-08-14] MEDS: Albuterol/Ipratropium 3ml neb HHN PRN (15:11)
[2018-08-14 16:00] VITALS: BP 137/79
[2018-08-14] MEDS: HYDROmorphone 2mg tab ORAL PRN ×2 (16:11→20:38)
--- NOTE | 2018-08-14 16:30 | Progress Note ---
DATE: 08/14/2018 SUBJECTIVE: This is a 52-year-old male patient. He has some confusion, some disorganized thought process, and COPD. He has disorganized thought process. He has high levels of anxiety worsened by stress of his medical illness that is why attending has requested daily psychiatric consultation. MENTAL STATUS EXAMINATION: The patient is a 52-year-old male. Appearance is disheveled. Attitude, irritable and agitated. Affect, guarded and restricted. Intellect poor. Mood depressed and anxious. Motor activity, psychomotor agitation. Attention span is poor. Orientation x2. Speech is pressured. Thought process, disorganized and illogical. Thought content, auditory hallucinations and paranoid delusions. Insight and judgment is poor. DIAGNOSIS: Major depressive disorder, mild, recurrent, without psychotic features. PLAN: This patient was treated with medication regimen of Cymbalta 30 mg daily, Neurontin 600 mg times a day, Ativan 1 mg IV 6 hours p.r.n. anxiety and agitation. Provide him with 20 minutes of cognitive behavioral therapy to help him identify automatic negative thoughts and help him convert those negative thoughts to more positive thinking to reduce depression, anxiety, and suicidality and to help him to have more adaptive behavior pattern. Also going to add trazodone 100 mg at bedtime for insomnia. Chart is reviewed and discussed with staff. Seen and assessed at bedside. Laney Mcghee M.D. DR: Doretha JOB#: [id number] CC:
--- NOTE | 2018-08-14 16:48 | NUR ---
CASE MANAGEMENT:REVIEW 08/14/17 SI: COPD. SEIZURES 98.0 48 23 137/79 98% ON 4L/NC WBC+14.9 IS: DILAUDID PO Q4HRS PRN IV SOLUMEDROL QD NORVASC PO QD PLAVIX PO QD LASIX PO QD NEURONTIN PO TID KEPPRA PO Q12 HEPARIN SQ Q12 NIRAV-DUR PO Q12 : TELEMETRY STATUS DCP: FROM [facility]
--- NOTE | 2018-08-14 19:30 | NUR ---
NURSE NOTES: Report received from Jasmin Lawson RN. Pt is resting in bed in stable condition. Pt is awake, alert, and oriented x4. Pt is on 2L O2 via nasal cannula and breathing is even and unlabored. No acute distress noted. IV site noted to be asymptomatic, patent, and intact. Bed is in lowest position with brake engaged and side rails up x2. Call light and side table are placed within reach. Will continue to monitor.
--- NOTE | 2018-08-14 19:43 | NUR ---
HAND-OFF: Report given to MICAELA Contreras. Plan of care endorsed
[2018-08-14 20:00] VITALS: BP 137/78
[2018-08-14] MEDS: Atorvastatin 20mg tab ORAL SCH (20:38)
--- NOTE | 2018-08-14 20:50 | NUR ---
NURSE NOTES: Pt is c/o 10/10 pain in BLE described as "throbbing" and is insistent that he needs IV Dilaudid for pain management. Message left for MD Magaña to discuss pt request. Awaiting call back for further instructions.
--- NOTE | 2018-08-14 22:50 | NUR ---
NURSE NOTES: Pt is continuing to insist on IV Dilaudid for pain management. Second message left for MD Magaña. Carole GARZA, is aware of situation. Awaiting call back for further instructions. Will continue to monitor.
--- NOTE | 2018-08-14 23:15 | NUR ---
NURSE NOTES: MD Dixon, covering for MD Nicole, notified of pt request and no call back from MD Magaña. Per MD Dixon, okay to order 2mg Dilaudid IVP Q4HR PRN for severe pain (7-10) and discontinue Morphine 4mg IVP Q4HR and Dilaudid 2mg PO Q4HR. Orders noted and carried out. Will continue to monitor patient.
--- NOTE | 2018-08-14 23:45 | Cardiology Progress Note ---
Assessment/Plan Assessment/Plan 1. Dyspnea likely due to acute exacerbation of COPD, echocardiography in Jun 2018 in this facility reveals normal LV systolic and diastolic function with LVEF at 55% and normal pulmonary artery pressure. 2. Morbid obesity with BMI of 52 and large panus 3. Hx of HTN 4. Hx of hyperlipidemia 5. Obesity hypoventilation syndrome. Subjective Subjective Sinus rhythm at rate of 71. On NC oxygen. Objective Last 24 Hour Vital Signs Date Time Temp Pulse Resp B/P (MAP) Pulse Ox O2 Delivery O2 Flow Rate FiO2 08/14/18 20:08 Nasal Cannula 3.0 32 08/14/18 20:08 96 Nasal Cannula 3.0 32 08/14/18 20:08 71 16 Nasal Cannula 3.0 32 08/14/18 20:00 98.0 88 22 137/78 (97) 98 88 08/14/18 16:00 98.0 48 23 137/79 (98) 98 48 08/14/18 16:00 88 08/14/18 15:11 61 18 97 Nasal Cannula 4.0 36 08/14/18 12:00 97.5 92 24 152/80 (104) 100 61 08/14/18 12:00 75 08/14/18 09:44 Nasal Cannula 3.0 32 08/14/18 09:44 75 16 Nasal Cannula 3.0 32 08/14/18 09:44 95 Nasal Cannula 3.0 32 08/14/18 09:03 92 152/77 08/14/18 09:00 Room Air 08/14/18 08:00 97.7 92 23 152/77 (102) 90 61 08/14/18 04:00 98.7 61 18 170/71 (104) 90 61 08/14/18 03:00 86 08/14/18 00:00 65 08/14/18 00:00 98.2 73 18 142/89 (106) 99 73 Intake and Output 08/13/18 08/14/18 19:00 07:00 # Voids 4 Laboratory Tests Test 08/14/18 06:55 White Blood Count 14.9 K/UL (4.8-10.8) #H Red Blood Count 4.20 M/UL (4.70-6.10) L Hemoglobin 14.0 G/DL (14.2-18.0) L Hematocrit 41.6 % (42.0-52.0) L Mean Corpuscular Volume 99 FL (80-99) Mean Corpuscular Hemoglobin 33.2 PG (27.0-31.0) H Mean Corpuscular Hemoglobin Concent 33.6 G/DL (32.0-36.0) Red Cell Distribution Width 12.2 % (11.6-14.8) Platelet Count 174 K/UL (150-450) Mean Platelet Volume 5.2 FL (6.5-10.1) L Neutrophils (%) (Auto) 82.9 % (45.0-75.0) H Lymphocytes (%) (Auto) 11.8 % (20.0-45.0) L Monocytes (%) (Auto) 5.1 % (1.0-10.0) Eosinophils (%) (Auto) 0.0 % (0.0-3.0) Basophils (%) (Auto) 0.3 % (0.0-2.0) Sodium Level 140 MMOL/L (136-145) Potassium Level 4.5 MMOL/L (3.5-5.1) Chloride Level 105 MMOL/L (98-107) Carbon Dioxide Level 32 MMOL/L (21-32) Anion Gap 3 mmol/L (5-15) L Blood Urea Nitrogen 25 mg/dL (7-18) H Creatinine 1.0 MG/DL (0.55-1.30) Estimat Glomerular Filtration Rate > 60 mL/min (>60) Glucose Level 110 MG/DL (74-106) H Calcium Level 8.5 MG/DL (8.5-10.1) Microbiology Date/Time Source Procedure Growth Status 08/13/18 00:13 Nasal Nares Influenza Types A,B Antigen (CRISTY) - Final Complete 08/13/18 04:33 Rectum Received Objective HEENT: atraumatic, normocephalic, PERRLA, EOMI. Neck: no carotid bruit, JVP <5 cm. Respiratory: Poor respiratory effort, B/L rhonchi Cardiovascular: Normal S1S2, regular rate, rhythm, no murmurs, gallops or rubs. Gastrointestinal: normal bowel sounds, non tender, soft, no guarding, no hernia Musculoskeletal: no edema, clubbing or cyanosis. Carlos Martins MD Aug 14, 2018 23:45
[2018-08-15] VITALS: BP 129/82
[2018-08-15 04:00] VITALS: BP 130/80
[2018-08-15 07:14] LABS: BASOPHILS % (AUTO) 0.6 % (0.0-2.0); EOSINOPHILS % (AUTO) 0.2 % (0.0-3.0); HEMATOCRIT 45.6 % (42.0-52.0); HEMOGLOBIN 15.1 G/DL (14.2-18.0); LYMPHOCYTES % (AUTO) 20.7 % (20.0-45.0); MEAN CORPUSCULAR VOLUME 100 FL (80-99); MONOCYTES % (AUTO) 6.6 % (1.0-10.0); NEUTROPHILS % (AUTO) 71.9 % (45.0-75.0); PLATELET COUNT 191 K/UL (150-450); RED BLOOD COUNT 4.55 M/UL (4.70-6.10); RED CELL DISTRIBUTION WIDTH 12.6 % (11.6-14.8); WHITE BLOOD COUNT 11.6 K/UL (4.8-10.8)
--- NOTE | 2018-08-15 07:35 | NUR ---
NURSE NOTES: Received report from Diane HINOJOSA. Pt is awake, alert, oriented x4, has just had breakfast, watching TV. On 2L of oxygen via nasal cannula. Pt reports pain relief after having received IV Dilaudid by previous shift RN. IV access on left hand #20G, saline lock, patent/intact. Skin is intact. Pt is placed on seizure precautions, however refuses side rail padding, even though has been given rational for his safety. 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 Call light is placed within easy reach, bed in lowest position, two side rails up, brakes engaged.
[2018-08-15 07:42] LABS: ANION GAP 4 mmol/L (5-15); BLOOD UREA NITROGEN 29 mg/dL (7-18); CARBON DIOXIDE 34 MMOL/L (21-32); CHLORIDE 101 MMOL/L (98-107); CREATININE 1.1 MG/DL (0.55-1.30); POTASSIUM 4.3 MMOL/L (3.5-5.1); SODIUM 139 MMOL/L (136-145)
--- NOTE | 2018-08-15 07:54 | NUR ---
HAND-OFF: Report given to Aisha HINOJOSA. Pt is resting in bed in stable condition. No acute distress noted. Endorsed plan of care.
[2018-08-15 08:00] VITALS: BP 134/90
--- NOTE | 2018-08-15 09:05 | Pulmonology Progress Note ---
Assessment/Plan Assessment/Plan ASSESSMENT COPD exacerbation peripheral edema ADALBERTO CHF morbid obesity seizure disorder MDD PLAN OF CARE MS floor O2 to keep sat above 90% Pulmonary toilet with nebulizing therapy around the clock and as needed BiPAP at night and prn Intravenous steroids with gradual tapering down. Sputum culture if able to obtain Empiric antibiotic. CXR revealed + CHF Trial of theophylline started Antitussive as needed Patient was counseled on smoking cessation Start Nicotine patch BP management with CCB Continue maintenance dose of diuretic with close monitoring of volumes and cardiorenal parameters Echocardiogram done in June revealed pEF 55-60% , RVSP of 25 continue antiplatelet therapy with Plavix and statin DVT prophylaxis venous duplex bilateral lower extremity Seizure precautions, continue Keppra no evidence of seizure activity while in the hospital pain management supportive care probably tele can be dc if OK with cardio case discussed and evaluated by supervising physician Subjective Allergies: Coded Allergies: ASPIRIN (Verified Allergy, Unknown, 07/14/18) KETOROLAC (Verified Allergy, Unknown, 07/14/18) PENICILLINS (Verified Allergy, Unknown, 07/14/18) Subjective still with chest tightness and difficulties breathing smoker but reduced from 3/4 pack a day to 5 cig a day denies chest pain reported hx of ADALBERTO, not have CPAP at [facility] , had sleep study recently at [facility] Objective Last 24 Hour Vital Signs Date Time Temp Pulse Resp B/P (MAP) Pulse Ox O2 Delivery O2 Flow Rate FiO2 08/15/18 08:40 97 Nasal Cannula 3.0 32 08/15/18 08:40 Nasal Cannula 3.0 32 08/15/18 08:40 97 16 Nasal Cannula 3.0 32 08/15/18 08:00 97.5 78 20 134/90 (105) 98 78 08/15/18 04:00 97.5 59 18 130/80 (97) 96 59 08/15/18 04:00 64 08/15/18 00:00 88 08/15/18 00:00 97.9 88 19 129/82 (98) 97 64 08/14/18 21:00 Room Air 08/14/18 20:08 Nasal Cannula 3.0 32 08/14/18 20:08 96 Nasal Cannula 3.0 32 08/14/18 20:08 71 16 Nasal Cannula 3.0 32 08/14/18 20:00 92 08/14/18 20:00 98.0 88 22 137/78 (97) 98 88 08/14/18 16:00 98.0 48 23 137/79 (98) 98 48 08/14/18 16:00 88 08/14/18 15:11 61 18 97 Nasal Cannula 4.0 36 08/14/18 12:00 97.5 92 24 152/80 (104) 100 61 08/14/18 12:00 75 08/14/18 09:44 Nasal Cannula 3.0 32 08/14/18 09:44 75 16 Nasal Cannula 3.0 32 08/14/18 09:44 95 Nasal Cannula 3.0 32 Intake and Output 08/14/18 08/15/18 19:00 07:00 # Voids 3 General Appearance: no acute distress, other - morbidly obese A/A/O x 4 male HEENT: normocephalic, atraumatic, anicteric, mucous membranes moist Respiratory/Chest: no accessory muscle use, decreased breath sounds, expiratory wheezing - few scattered Cardiovascular: normal rate - SR on [email or web address] PVC, no JVD Abdomen: normal bowel sounds, soft, non tender - obese Extremities: other - +2 edema Neurologic/Psychiatric: alert Musculoskeletal: normal muscle bulk Microbiology Date/Time Source Procedure Growth Status 08/13/18 04:33 Nasal Nares MRSA Culture - Final NO METHICILLIN RESISTANT STAPH AUREUS... Complete 08/13/18 00:13 Nasal Nares Influenza Types A,B Antigen (CRISTY) - Final Complete 08/13/18 04:33 Rectum Received Laboratory Tests 08/15/18 06:45: White Blood Count 11.6H, Red Blood Count 4.55L, Hemoglobin 15.1, Hematocrit 45.6 , Mean Corpuscular Volume 100H, Mean Corpuscular Hemoglobin 33.2H, Mean Corpuscular Hemoglobin Concent 33.2, Red Cell Distribution Width 12.6, Platelet Count 191, Mean Platelet Volume 5.5L, Neutrophils (%) (Auto) 71.9, Lymphocytes ( %) (Auto) 20.7, Monocytes (%) (Auto) 6.6, Eosinophils (%) (Auto) 0.2, Basophils (%) (Auto) 0.6, Sodium Level 139, Potassium Level 4.3, Chloride Level 101, Carbon Dioxide Level 34H, Anion Gap 4L, Blood Urea Nitrogen 29H, Creatinine 1.1 , Estimat Glomerular Filtration Rate > 60, Glucose Level 81, Calcium Level 9.0 Current Medications Medications (Trade) Dose Ordered Sig/Luis Route PRN Reason Start Time Stop Time Status Last Admin Dose Admin Albuterol/ Ipratropium (Albuterol/ Ipratropium) 3 ml Q4H PRN HHN dyspnea 08/13/18 07:15 08/18/18 07:14 08/14/18 15:11 Amlodipine Besylate (Norvasc) 5 mg DAILY ORAL 08/13/18 09:00 09/12/18 08:59 08/14/18 09:03 Atorvastatin Calcium (Lipitor) 40 mg BEDTIME ORAL 08/13/18 21:00 09/12/18 20:59 08/14/18 20:38 Clopidogrel Bisulfate (Plavix) 75 mg DAILY ORAL 08/13/18 09:00 09/12/18 08:59 08/14/18 09:02 Dextrose (Dextrose 50%) 25 ml Q30M PRN IV Hypoglycemia 08/13/18 07:15 09/12/18 07:14 Dextrose (Dextrose 50%) 50 ml Q30M PRN IV Hypoglycemia 08/13/18 07:15 09/12/18 07:14 Duloxetine HCl (Cymbalta) 30 mg DAILY ORAL 08/13/18 09:00 09/12/18 08:59 08/14/18 09:02 Furosemide (Lasix) 40 mg DAILY ORAL 08/13/18 09:00 09/12/18 08:59 08/14/18 09:01 Gabapentin (Neurontin) 600 mg THREE TIMES A DAY ORAL 08/13/18 09:00 09/12/18 08:59 08/14/18 18:36 Heparin Sodium (Porcine) (Heparin 5000 units/ml) 5,000 units EVERY 12 HOURS SUBQ 08/13/18 09:00 09/12/18 08:59 08/14/18 20:33 Hydromorphone HCl (Dilaudid) 2 mg Q4H PRN IVP Severe Pain (Pain Scale 7-10) 08/14/18 23:15 08/21/18 23:14 08/15/18 05:27 Levetiracetam (Keppra) 500 mg Q12HR ORAL 08/13/18 09:00 09/12/18 08:59 08/14/18 20:33 Lorazepam (Ativan 2mg/ml 1ml) 0.5 mg Q4H PRN IV For Anxiety 08/13/18 07:15 08/20/18 07:14 Lorazepam (Ativan) 1 mg Q6H PRN ORAL For Anxiety 08/13/18 15:00 08/20/18 14:59 Methylprednisolone Sodium Succinate (Solu-MEDROL) 60 mg DAILY IV 08/14/18 09:00 09/12/18 11:59 08/14/18 09:02 Nitroglycerin (Ntg) 0.4 mg Q5M X 3 DOSES PRN SL Prn Chest Pain 08/13/18 07:15 09/12/18 07:14 Ondansetron HCl (Zofran) 4 mg Q6H PRN IVP Nausea & Vomiting 08/13/18 07:15 09/12/18 07:14 Promethazine HCl/ Codeine (Phenergan with Codeine) 5 ml Q6H PRN ORAL cough 08/13/18 07:15 09/12/18 07:14 Temazepam (Restoril) 15 mg HSPRN PRN ORAL Insomnia 08/13/18 20:00 08/20/18 19:59 08/14/18 20:38 Theophylline (George-Dur) 100 mg EVERY 12 HOURS ORAL 08/13/18 09:00 09/12/18 08:59 08/14/18 20:38 Kiera Vivar NP Aug 15, 2018 09:05
[2018-08-15] MEDS: DULoxetine 30mg cap ORAL SCH (09:31)
[2018-08-15] MEDS: Furosemide 40mg tab ORAL SCH (09:31)
[2018-08-15] MEDS: Theophylline ER 100mg ORAL SCH ×2 (09:31→21:38)
[2018-08-15] MEDS: Solu-MEDROL 125mg Inj IV SCH (09:32)
[2018-08-15] MEDS: Heparin 5000 units/ml inj SUBQ SCH ×2 (09:33→21:41)
[2018-08-15 12:00] VITALS: BP 137/75
[2018-08-15] MEDS: Albuterol/Ipratropium 3ml neb HHN PRN ×2 (13:55→22:20)
[2018-08-15 16:00] VITALS: BP 139/64
--- NOTE | 2018-08-15 17:15 | Progress Note ---
DATE: 08/15/2018 SUBJECTIVE: The patient is a 52-year-old male patient with COPD. This patient continues to have some confusion, disorganized thought process, and high levels of anxiety and depression worsened by stress of his medical illness. That is why, his attending has requested daily psychiatric consultation for this patient. MENTAL STATUS EXAMINATION: This is a 52-year-old male patient who is seen. His appearance is disheveled. Attitude, irritable and agitated. Affect, guarded and restricted. Intellect poor. Mood, depressed and anxious. Motor activity, psychomotor agitation. Attention span is poor. Orientation x2. Speech is normal volume and slow. Thought process is disorganized and illogical. Thought content, he has some paranoid delusions. Insight and judgment is poor. DIAGNOSIS: Major depressive disorder, mild, recurrent, without psychotic features. PLAN: Treat him with Cymbalta 30 mg a day and Neurontin 600 milligrams times a day, trazodone 150 mg nightly. Provided him with 20 minutes of cognitive behavioral therapy to help him identify his automatic negative thoughts and help him convert those negative thoughts to more positive thoughts to reduce depression, anxiety, and suicidality. Provided him with 20 minutes of cognitive behavioral therapy. He was seen and assessed in his room. Chart was reviewed and discussed with staff. He was seen and assessed at bedside. Laney Mcghee M.D. DR: Ced JOB#: [id number] CC:
--- NOTE | 2018-08-15 17:45 | Progress Note ---
DATE: 08/15/2018 SUBJECTIVE: The patient is a 52-year-old male patient with COPD. This patient continues to have some confusion, disorganized thought process, and high levels of anxiety and depression worsened by stress of his medical illness. That is why, his attending has requested daily psychiatric consultation for this patient. MENTAL STATUS EXAMINATION: This is a 52-year-old male patient who is seen. His appearance is disheveled. Attitude, irritable and agitated. Affect, guarded and restricted. Intellect poor. Mood, depressed and anxious. Motor activity, psychomotor agitation. Attention span is poor. Orientation x2. Speech is normal volume and slurred. Thought process is disorganized and illogical. Thought content, he has some paranoid delusions. Insight and judgment is poor. DIAGNOSIS: Major depressive disorder, mild, recurrent, without psychotic features. PLAN: Treat him with Cymbalta 30 mg a day and Neurontin 600 milligrams times a day, trazodone 150 mg nightly. Provided him with 20 minutes of cognitive behavioral therapy to help him identify his automatic negative thoughts and help him convert those negative thoughts to more positive thoughts to reduce depression, anxiety, and suicidality. Provided him with 20 minutes of cognitive behavioral therapy. He was seen and assessed in his room. Chart was reviewed and discussed with staff. He was seen and assessed at bedside. Laney Mcghee M.D. DR: Ced JOB#: [id number] CC:
--- NOTE | 2018-08-15 18:31 | General Progress Note ---
Assessment/Plan Problem List: (1) Morbid obesity ICD Codes: E66.01 - Morbid (severe) obesity due to excess calories SNOMED: 961930992 (2) Right heart failure ICD Codes: I50.810 - Right heart failure, unspecified SNOMED: 486010462 (3) Seizures ICD Codes: R56.9 - Unspecified convulsions SNOMED: 00220891 (4) Peripheral edema ICD Codes: R60.9 - Edema, unspecified SNOMED: 477831726 (5) COPD (chronic obstructive pulmonary disease) ICD Codes: J44.9 - Chronic obstructive pulmonary disease, unspecified SNOMED: 54590287 Status: progressing Assessment/Plan copd improving resp insuff no wheezing right heart failure obesity reviewed chart and labs Subjective ROS Limited/Unobtainable: Yes Allergies: Coded Allergies: ASPIRIN (Verified Allergy, Unknown, 07/14/18) KETOROLAC (Verified Allergy, Unknown, 07/14/18) PENICILLINS (Verified Allergy, Unknown, 07/14/18) Objective Last 24 Hour Vital Signs Date Time Temp Pulse Resp B/P (MAP) Pulse Ox O2 Delivery O2 Flow Rate FiO2 08/15/18 18:02 97.5 08/15/18 16:00 97.5 45 20 139/64 (89) 95 45 08/15/18 16:00 91 08/15/18 13:56 67 18 98 Nasal Cannula 4.0 36 08/15/18 12:00 65 08/15/18 12:00 97.6 50 20 137/75 (95) 97 78 08/15/18 09:31 97 134/90 08/15/18 09:00 Room Air 08/15/18 08:40 97 Nasal Cannula 3.0 32 08/15/18 08:40 Nasal Cannula 3.0 32 08/15/18 08:40 97 16 Nasal Cannula 3.0 32 08/15/18 08:00 97.5 78 20 134/90 (105) 98 78 08/15/18 08:00 91 08/15/18 04:00 97.5 59 18 130/80 (97) 96 59 08/15/18 04:00 64 08/15/18 00:00 88 08/15/18 00:00 97.9 88 19 129/82 (98) 97 64 08/14/18 21:00 Room Air 08/14/18 20:08 Nasal Cannula 3.0 32 08/14/18 20:08 96 Nasal Cannula 3.0 32 08/14/18 20:08 71 16 Nasal Cannula 3.0 32 08/14/18 20:00 92 08/14/18 20:00 98.0 88 22 137/78 (97) 98 88 Intake and Output 08/14/18 08/15/18 18:59 06:59 # Voids 3 Laboratory Tests 08/15/18 06:45: White Blood Count 11.6H, Red Blood Count 4.55L, Hemoglobin 15.1, Hematocrit 45.6 , Mean Corpuscular Volume 100H, Mean Corpuscular Hemoglobin 33.2H, Mean Corpuscular Hemoglobin Concent 33.2, Red Cell Distribution Width 12.6, Platelet Count 191, Mean Platelet Volume 5.5L, Neutrophils (%) (Auto) 71.9, Lymphocytes ( %) (Auto) 20.7, Monocytes (%) (Auto) 6.6, Eosinophils (%) (Auto) 0.2, Basophils (%) (Auto) 0.6, Sodium Level 139, Potassium Level 4.3, Chloride Level 101, Carbon Dioxide Level 34H, Anion Gap 4L, Blood Urea Nitrogen 29H, Creatinine 1.1 , Estimat Glomerular Filtration Rate > 60, Glucose Level 81, Calcium Level 9.0 Height (Feet): 6 Height (Inches): 10.00 Weight (Pounds): 385 Cardiovascular: normal rate Respiratory/Chest: lungs clear Abdomen: soft Vadim Tang MD Aug 15, 2018 18:31
--- NOTE | 2018-08-15 19:15 | NUR ---
HAND-OFF: Report given to Eloise HINOJOSA. Pt is resting in bed, watching TV. Endorsed plan of care.
--- NOTE | 2018-08-15 19:20 | NUR ---
NURSE NOTES: Received report from MICAELA Leonard. Patient awake in bed, AOX4. Denies pain at this time. Offered padded siderails for seizure precautions, patient strongly refused despite explanation of risk and consequences. Respiration even and unlabored, On O2 @2LPM via NC. Left hand IV site intact and patent. No s/s of infiltration observed. Dressing c/d/i. Bed in lowest position, Wheels locked. Call light within easy reach. Nursing protocols implemented and effective. Will continue to monitor.
[2018-08-15 20:00] VITALS: BP 150/62
[2018-08-15] MEDS: Atorvastatin 20mg tab ORAL SCH (21:38)
[2018-08-16 04:00] VITALS: BP 128/62
--- NOTE | 2018-08-16 04:30 | Consultation ---
DATE OF CONSULTATION: 08/14/2018 NOTE: POOR AUDIO PSYCHOTHERAPY CONSULTATION CONSULTING PHYSICIAN: Liu Jackman PsyD. TREATING ATTENDING PHYSICIAN: Ernesto Nicole D.O. HISTORY OF PRESENT ILLNESS: The patient is a 52-year-old male patient who has chronic obstructive pulmonary disease exacerbation. The patient has been very agitated and irritable. For these reasons, he was referred for psychotherapeutic services. This clinician assessed this patient. The patient has been very talkative. He states that he is a and that he has had multiple because he states that he has some pain and he wants more medication for pain. The patient is very agitated and irritable. Denies suicidal or homicidal thoughts of ideation. Denies any auditory or visual hallucinations; however, rates his anxiety at 10/10 on a 1 to 10 scale. He also states that he has history of insomnia. The patient has been symptoms in the past. The patient has a possible history of bipolar disorder. PAST MEDICAL HISTORY: Includes history of chronic obstructive pulmonary disease. ALLERGIES: The patient has no known drug allergies. SUBSTANCE ABUSE HISTORY: The patient denies history of alcohol use, illicit substance use, or smoking cigarettes. PSYCHIATRIC HISTORY: The patient states he has history of anxiety and depression, possible bipolar disorder, and has been treated for in the past. SOCIAL HISTORY: The patient is a 52-year-old male patient financially sustained through [employer]. The patient family. DIAGNOSIS: Rule out bipolar I disorder, mixed, moderate without psychotic features. MENTAL STATUS EXAMINATION: The patient is alert and oriented to person, place, time, and situation. Mood is anxious. Affect is congruent. Thought process, disorganized. Thought content, confused. Poor insight, judgment, and impulse control. THIS CLINICIAN ASSESSED THIS PATIENT. PROVIDED THE PATIENT WITH: 1. Supportive psychotherapy anxiety and depression. 2. Provided the patient with cognitive behavioral therapy anxiety the patient's negative and catastrophic thoughts addressing his anxiety, agitation, irritability, and poor frustration tolerance symptoms coping skills medication compliance . This clinician has reviewed the patient's chart. Discussed treatment with treatment team. . Liu Jackman PsyD. DR: Vic JOB#: [id number] CC:
[2018-08-16 06:04] LABS: ANION GAP 14 mmol/L (5-15); BLOOD UREA NITROGEN 27 mg/dL (7-18); CALCIUM 8.8 MG/DL (8.5-10.1); CARBON DIOXIDE 26 MMOL/L (21-32); CHLORIDE 101 MMOL/L (98-107); CREATININE 1.3 MG/DL (0.55-1.30); POTASSIUM 4.9 MMOL/L (3.5-5.1); SODIUM 140 MMOL/L (136-145)
[2018-08-16 06:27] LABS: BASOPHILS % (AUTO) 1.3 % (0.0-2.0); EOSINOPHILS % (AUTO) 0.2 % (0.0-3.0); HEMATOCRIT 46.5 % (42.0-52.0); LYMPHOCYTES % (AUTO) 24.8 % (20.0-45.0); MEAN CORPUSCULAR VOLUME 102 FL (80-99); MONOCYTES % (AUTO) 6.7 % (1.0-10.0); NEUTROPHILS % (AUTO) 67.1 % (45.0-75.0); PLATELET COUNT 185 K/UL (150-450); RED BLOOD COUNT 4.54 M/UL (4.70-6.10); RED CELL DISTRIBUTION WIDTH 13.1 % (11.6-14.8); WHITE BLOOD COUNT 10.6 K/UL (4.8-10.8)
--- NOTE | 2018-08-16 07:15 | NUR ---
NURSE NOTES: Received report from Eloise HINOJOSA. Pt is awake, alert, oriented x4. On 2L of oxygen via nasal cannula, breathing even/unlabored. Pt reports chronic severe generalized pain, for which he has been administered PRN Dilaudid IVP Q4hr, will reassess and administer next dose as needed. IV access on left hand #20G, saline lock, patent/intact. Pt has unsteady gait, however refuses assistance, and insists on ambulating to restroom by himself despite explanation of fall risk. Pt is also on seizure precaution, however refuses to allow side-rail padding despite several attempts, and explanation of safety risk. Call light is placed within easy reach, bed in lowest position, two side rails up, brakes engaged.
--- NOTE | 2018-08-16 07:30 | NUR ---
NURSE NOTES: Lab drawn collected from 0500 yielded result of blood glucose at 49. Patient asymptomatic. 240 ml of orange juice given to patient, tolerated well. Rechecked after 15 minutes and obtained result of 128. Message left for Dr. Dixon. No return call at this time. Endorsed to MICAELA Leonard
--- NOTE | 2018-08-16 07:32 | Pulmonology Progress Note ---
Assessment/Plan Assessment/Plan ASSESSMENT COPD exacerbation peripheral edema ADALBERTO CHF morbid obesity seizure disorder MDD PLAN OF CARE MS floor O2 to keep sat above 90% Pulmonary toilet with nebulizing therapy around the clock and as needed BiPAP at night and prn , started last night Intravenous steroids with gradual tapering down. Sputum culture if able to obtain Empiric antibiotic. CXR revealed + CHF Trial of theophylline started Antitussive as needed Patient was counseled on smoking cessation Started on Nicotine patch , now pt refusing, more smoking craving more, will dc f/up with CXR in am BP management with CCB Continue maintenance dose of diuretic with close monitoring of volumes and cardiorenal parameters Echocardiogram done in June revealed pEF 55-60% , RVSP of 25 continue antiplatelet therapy with Plavix and statin DVT prophylaxis venous duplex bilateral lower extremity Seizure precautions, continue Keppra no evidence of seizure activity while in the hospital pain management supportive care transfer to [place] if ok with cardio case discussed and evaluated by supervising physician Subjective Allergies: Coded Allergies: ASPIRIN (Verified Allergy, Unknown, 07/14/18) KETOROLAC (Verified Allergy, Unknown, 07/14/18) PENICILLINS (Verified Allergy, Unknown, 07/14/18) Subjective still with chest tightness and difficulties breathing smoker but reduced from 3/4 pack a day to 5 cig a day denies chest pain reported hx of ADALBERTO, not have CPAP at [facility] , had sleep study recently at [place] Objective Last 24 Hour Vital Signs Date Time Temp Pulse Resp B/P (MAP) Pulse Ox O2 Delivery O2 Flow Rate FiO2 08/16/18 04:00 82 08/16/18 04:00 97.9 58 20 128/62 (84) 96 08/16/18 00:00 89 08/15/18 22:30 71 18 97 Nasal Cannula 2.0 28 08/15/18 22:20 68 18 97 Nasal Cannula 3.0 32 08/15/18 21:00 Room Air 08/15/18 20:00 98.2 66 20 150/62 (91) 95 08/15/18 20:00 90 08/15/18 19:37 Nasal Cannula 3.0 32 08/15/18 19:37 88 16 Nasal Cannula 3.0 32 08/15/18 19:37 96 Nasal Cannula 3.0 32 08/15/18 18:02 97.5 08/15/18 16:00 97.5 45 20 139/64 (89) 95 45 08/15/18 16:00 91 08/15/18 13:56 67 18 98 Nasal Cannula 4.0 36 08/15/18 12:00 65 08/15/18 12:00 97.6 50 20 137/75 (95) 97 78 08/15/18 10:30 78 19 98 Facial 35 08/15/18 09:31 97 134/90 08/15/18 09:00 Room Air 08/15/18 08:40 97 Nasal Cannula 3.0 32 08/15/18 08:40 Nasal Cannula 3.0 32 08/15/18 08:40 97 16 Nasal Cannula 3.0 32 08/15/18 08:00 97.5 78 20 134/90 (105) 98 78 08/15/18 08:00 91 Intake and Output 08/15/18 08/16/18 19:00 07:00 Intake Total 1880 ml Balance 1880 ml Intake Oral 1880 ml # Voids 6 # Bowel Movements 1 Objective General Appearance: no acute distress, morbidly obese A/A/O x 4 male HEENT: normocephalic, atraumatic, anicteric, mucous membranes moist Respiratory/Chest: no accessory muscle use, decreased breath sounds, few scattered exp wheezes Cardiovascular: normal rate - SR on tele with occas PVC, no JVD Abdomen: normal bowel sounds, soft, non tender , obese Extremities: +2 edema BLE Neurologic/Psychiatric: alert Musculoskeletal: normal muscle bulk Laboratory Tests 08/16/18 05:00: White Blood Count 10.6, Red Blood Count 4.54L, Hemoglobin 15.0, Hematocrit 46.5 , Mean Corpuscular Volume 102H, Mean Corpuscular Hemoglobin 33.1H, Mean Corpuscular Hemoglobin Concent 32.4, Red Cell Distribution Width 13.1, Platelet Count 185, Mean Platelet Volume 4.7L, Neutrophils (%) (Auto) 67.1, Lymphocytes ( %) (Auto) 24.8, Monocytes (%) (Auto) 6.7, Eosinophils (%) (Auto) 0.2, Basophils (%) (Auto) 1.3, Sodium Level 140, Potassium Level 4.9, Chloride Level 101, Carbon Dioxide Level 26, Anion Gap 14, Blood Urea Nitrogen 27H, Creatinine 1.3, Estimat Glomerular Filtration Rate 57.5, Glucose Level 49L, Calcium Level 8.8 Current Medications Medications (Trade) Dose Ordered Sig/Luis Route PRN Reason Start Time Stop Time Status Last Admin Dose Admin Albuterol/ Ipratropium (Albuterol/ Ipratropium) 3 ml Q4H PRN HHN dyspnea 08/13/18 07:15 08/18/18 07:14 08/15/18 22:20 Amlodipine Besylate (Norvasc) 5 mg DAILY ORAL 08/13/18 09:00 09/12/18 08:59 08/15/18 09:31 Atorvastatin Calcium (Lipitor) 40 mg BEDTIME ORAL 08/13/18 21:00 09/12/18 20:59 08/15/18 21:38 Clopidogrel Bisulfate (Plavix) 75 mg DAILY ORAL 08/13/18 09:00 09/12/18 08:59 08/15/18 09:31 Dextrose (Dextrose 50%) 25 ml Q30M PRN IV Hypoglycemia 08/13/18 07:15 09/12/18 07:14 Dextrose (Dextrose 50%) 50 ml Q30M PRN IV Hypoglycemia 08/13/18 07:15 09/12/18 07:14 Duloxetine HCl (Cymbalta) 30 mg DAILY ORAL 08/13/18 09:00 09/12/18 08:59 08/15/18 09:31 Furosemide (Lasix) 40 mg DAILY ORAL 08/13/18 09:00 09/12/18 08:59 08/15/18 09:31 Gabapentin (Neurontin) 600 mg THREE TIMES A DAY ORAL 08/13/18 09:00 09/12/18 08:59 08/15/18 17:32 Heparin Sodium (Porcine) (Heparin 5000 units/ml) 5,000 units EVERY 12 HOURS SUBQ 08/13/18 09:00 09/12/18 08:59 08/15/18 21:41 Hydromorphone HCl (Dilaudid) 2 mg Q4H PRN IVP Severe Pain (Pain Scale 7-10) 08/14/18 23:15 08/21/18 23:14 08/16/18 06:11 Levetiracetam (Keppra) 500 mg Q12HR ORAL 08/13/18 09:00 09/12/18 08:59 08/15/18 21:38 Lorazepam (Ativan 2mg/ml 1ml) 0.5 mg Q4H PRN IV For Anxiety 08/13/18 07:15 08/20/18 07:14 Lorazepam (Ativan) 1 mg Q6H PRN ORAL For Anxiety 08/13/18 15:00 08/20/18 14:59 Methylprednisolone Sodium Succinate (Solu-MEDROL) 50 mg DAILY IV 08/16/18 09:00 09/12/18 11:59 Nicotine (Nicoderm) 1 patch Q24H TDERMAL 08/15/18 13:00 09/14/18 12:59 Nitroglycerin (Ntg) 0.4 mg Q5M X 3 DOSES PRN SL Prn Chest Pain 08/13/18 07:15 09/12/18 07:14 Ondansetron HCl (Zofran) 4 mg Q6H PRN IVP Nausea & Vomiting 08/13/18 07:15 09/12/18 07:14 Promethazine HCl/ Codeine (Phenergan with Codeine) 5 ml Q6H PRN ORAL cough 08/13/18 07:15 09/12/18 07:14 Temazepam (Restoril) 15 mg HSPRN PRN ORAL Insomnia 08/13/18 20:00 08/20/18 19:59 08/15/18 23:59 Theophylline (George-Dur) 100 mg EVERY 12 HOURS ORAL 08/13/18 09:00 09/12/18 08:59 08/15/18 21:38 Kiera Vivar NP Aug 16, 2018 07:32
--- NOTE | 2018-08-16 07:33 | NUR ---
HAND-OFF: Report given to MICAELA Leonard. Plan of care endorsed
[2018-08-16 08:00] VITALS: BP 164/106
[2018-08-16] MEDS: Albuterol/Ipratropium 3ml neb HHN PRN (08:13)
[2018-08-16] MEDS: Furosemide 40mg tab ORAL SCH (08:25)
[2018-08-16] MEDS: DULoxetine 30mg cap ORAL SCH (08:25)
[2018-08-16] MEDS: Theophylline ER 100mg ORAL SCH ×2 (08:25→20:20)
[2018-08-16] MEDS: Heparin 5000 units/ml inj SUBQ SCH ×2 (08:28→20:22)
[2018-08-16] MEDS ORDERED: Solu-MEDROL 125mg Inj IV SCH (09:00)
--- NOTE | 2018-08-16 09:31 | NUR ---
CASE MANAGEMENT:REVIEW 08/16/2018 SI: COPD. SEIZURES T 97.9 HR 58 RR 20 B/P 128/62 SATS 96% ON 3L/NC BUN 27 GLU 49 IS: DILAUDID PO Q4HRS PRN IV SOLU MEDROL QD NORVASC PO QD PLAVIX PO QD LASIX PO QD NEURONTIN PO TID KEPPRA PO Q12H HEPARIN SUBQ Q12H NIRAV-DUR PO Q12H : TELEMETRY STATUS DCP: FROM [facility]
[2018-08-16 11:39] VITALS: BP 134/77
--- NOTE | 2018-08-16 12:38 | NUR ---
TRANSFER TO FLOOR: Patient transferred to Rm [id number] from ast per order. Report given to Alan HINOJOSA. Tele monitor removed and returned. Pt belonging's list checked and signed with the receiving nurse in front of the pt. Per pt, $10 song that was documented on the belonging's list upon admission has been spent by the pt. Pt states "I asked someone to go purchase food for me from downstairs". Pt was transferred via hospital bed, currently sitting up at bedside in stable condition, having lunch. Endorsed plan of care.
--- NOTE | 2018-08-16 12:40 | NUR ---
NURSE NOTES: Received report from MICAELA Leonard. Belongings checked with MICAELA Leonard. Patient a/o x4 and denies any pain at this time. No respiratory distress noted. IV patent. Bed in lowest position and call light within reach. Will continue to monitor.
[2018-08-16] MEDS ORDERED: Nitroglycerin Subl 0.4mg tab SL PRN (12:45)
[2018-08-16] MEDS ORDERED: Promethazine/Codeine 5ml UD ORAL PRN (13:00)
[2018-08-16] MEDS ORDERED: LORazepam 1mg tab ORAL PRN (13:00)
[2018-08-16] MEDS ORDERED: LORazepam Inj 2mg/ml 1ml IV PRN (13:00)
[2018-08-16 16:00] VITALS: BP 156/86
--- NOTE | 2018-08-16 19:12 | NUR ---
HAND-OFF: Report given to MICAELA Silva.
--- NOTE | 2018-08-16 19:30 | Progress Note ---
DATE: 08/16/2018 SUBJECTIVE: This is a 52-year-old male patient with COPD, , depression, and anxiety worsened by the stress of his medical illness. That is why, his attending has requested daily psychiatric consultation. MENTAL STATUS EXAMINATION: This is a 52-year-old male. Appearance is disheveled. Attitude, irritable and agitated. Affect, guarded and restricted. Intellect poor. Mood, depressed and anxious. Motor activity, psychomotor agitation. Attention span is poor. Orientation x2. Speech is low volume and slurred. Thought process, disorganized and illogical. Thought content, denies auditory or visual hallucinations or delusions. Denies suicidal or homicidal thoughts. Insight and judgment is poor. PLAN: My plan for this patient is to treat him with Cymbalta 30 mg daily, Neurontin 200 mg three times a day, Advil 1 mg every 6 hours p.r.n. anxiety and agitation. Provide him with 20 minutes of supportive psychotherapy and encouraged him to interact appropriately with staff. A 20 minutes of cognitive behavioral therapy to help him identify his automatic negative thoughts and help him to convert those negative thoughts to more positive thoughts to reduce depression, anxiety, and suicidality. Chart is reviewed and discussed with staff. Seen and assessed at bedside. Laney Mcghee M.D. DR: ENRIQUE JOB#: [id number] CC:
--- NOTE | 2018-08-16 19:41 | NUR ---
NURSE NOTES: Pt received awake, alert oriented , no signs of distress, asking for juice, ice and jello, sitting at side of bed with nasal cannuli on, bed in lowest position, call light within reach, able to wilder Addendum: 08/16/18 at 1942 by CHARLA FARRELL RN NURSE NOTES: able to make needs known.
--- NOTE | 2018-08-16 20:08 | Cardiology Progress Note ---
Assessment/Plan Assessment/Plan 1. Dyspnea likely due to acute exacerbation of COPD, echocardiography in Jun 2018 in this facility reveals normal LV systolic and diastolic function with LVEF at 55% and normal pulmonary artery pressure. 2. Morbid obesity with BMI of 52 and large pannus. 3. Hx of HTN, continue amlodipine and lasix for now, ultimately would replace lasix by thiazide diuretics. 4. Hx of hyperlipidemia 5. Obesity hypoventilation syndrome. Subjective Subjective Not on the color television console monitor. No cardiac events. On [place] oxygen. Objective Last 24 Hour Vital Signs Date Time Temp Pulse Resp B/P (MAP) Pulse Ox O2 Delivery O2 Flow Rate FiO2 08/16/18 19:31 98 Nasal Cannula 3.0 32 08/16/18 19:31 Nasal Cannula 3.0 32 08/16/18 19:31 84 18 Nasal Cannula 3.0 32 08/16/18 16:00 98.4 64 20 156/86 (109) 98 08/16/18 11:39 97.7 67 20 134/77 (96) 100 08/16/18 10:42 97.5 08/16/18 09:00 Room Air 08/16/18 08:26 87 164/106 08/16/18 08:00 82 08/16/18 08:00 97.5 87 20 164/106 (125) 97 08/16/18 07:55 80 18 Nasal Cannula 3.0 32 08/16/18 07:55 97 Nasal Cannula 3.0 32 08/16/18 07:55 Nasal Cannula 3.0 32 08/16/18 04:00 82 08/16/18 04:00 97.9 58 20 128/62 (84) 96 08/16/18 00:00 89 08/15/18 22:30 71 18 97 Nasal Cannula 2.0 28 08/15/18 22:20 68 18 97 Nasal Cannula 3.0 32 08/15/18 21:00 Room Air Intake and Output 08/15/18 08/16/18 18:59 06:59 Intake Total 1880 ml Balance 1880 ml Intake Oral 1880 ml # Voids 6 # Bowel Movements 1 Laboratory Tests Test 08/16/18 05:00 White Blood Count 10.6 K/UL (4.8-10.8) Red Blood Count 4.54 M/UL (4.70-6.10) L Hemoglobin 15.0 G/DL (14.2-18.0) Hematocrit 46.5 % (42.0-52.0) Mean Corpuscular Volume 102 FL (80-99) H Mean Corpuscular Hemoglobin 33.1 PG (27.0-31.0) H Mean Corpuscular Hemoglobin Concent 32.4 G/DL (32.0-36.0) Red Cell Distribution Width 13.1 % (11.6-14.8) Platelet Count 185 K/UL (150-450) Mean Platelet Volume 4.7 FL (6.5-10.1) L Neutrophils (%) (Auto) 67.1 % (45.0-75.0) Lymphocytes (%) (Auto) 24.8 % (20.0-45.0) Monocytes (%) (Auto) 6.7 % (1.0-10.0) Eosinophils (%) (Auto) 0.2 % (0.0-3.0) Basophils (%) (Auto) 1.3 % (0.0-2.0) Sodium Level 140 MMOL/L (136-145) Potassium Level 4.9 MMOL/L (3.5-5.1) Chloride Level 101 MMOL/L (98-107) Carbon Dioxide Level 26 MMOL/L (21-32) Anion Gap 14 mmol/L (5-15) Blood Urea Nitrogen 27 mg/dL (7-18) H Creatinine 1.3 MG/DL (0.55-1.30) Estimat Glomerular Filtration Rate 57.5 mL/min (>60) Glucose Level 49 MG/DL (74-106) L Calcium Level 8.8 MG/DL (8.5-10.1) Objective HEENT: atraumatic, normocephalic, PERRLA, EOMI. Neck: no carotid bruit, JVP <5 cm. Respiratory: Poor respiratory effort, B/L rhonchi Cardiovascular: Normal S1S2, regular rate, rhythm, no murmurs, gallops or rubs. Gastrointestinal: normal bowel sounds, non tender, soft, no guarding, no hernia Musculoskeletal: no edema, clubbing or cyanosis. Carlos Martins MD Aug 16, 2018 20:08
[2018-08-16] MEDS: Atorvastatin 20mg tab ORAL SCH (20:19)
--- NOTE | 2018-08-16 20:39 | General Progress Note ---
Assessment/Plan Problem List: (1) Morbid obesity ICD Codes: E66.01 - Morbid (severe) obesity due to excess calories SNOMED: 396026332 (2) Right heart failure ICD Codes: I50.810 - Right heart failure, unspecified SNOMED: 067655936 (3) Seizures ICD Codes: R56.9 - Unspecified convulsions SNOMED: 43185931 (4) Peripheral edema ICD Codes: R60.9 - Edema, unspecified SNOMED: 338037621 (5) COPD (chronic obstructive pulmonary disease) ICD Codes: J44.9 - Chronic obstructive pulmonary disease, unspecified SNOMED: 09771456 Status: progressing Assessment/Plan copd improving no seizures right sided heart failure no wheezing right heart failure obesity reviewed chart and labs Subjective ROS Limited/Unobtainable: Yes Constitutional: Reports: no symptoms Allergies: Coded Allergies: ASPIRIN (Verified Allergy, Unknown, 07/14/18) KETOROLAC (Verified Allergy, Unknown, 07/14/18) PENICILLINS (Verified Allergy, Unknown, 07/14/18) Objective Last 24 Hour Vital Signs Date Time Temp Pulse Resp B/P (MAP) Pulse Ox O2 Delivery O2 Flow Rate FiO2 08/16/18 19:31 98 Nasal Cannula 3.0 32 08/16/18 19:31 Nasal Cannula 3.0 32 08/16/18 19:31 84 18 Nasal Cannula 3.0 32 08/16/18 16:00 98.4 64 20 156/86 (109) 98 08/16/18 11:39 97.7 67 20 134/77 (96) 100 08/16/18 10:42 97.5 08/16/18 09:00 Room Air 08/16/18 08:26 87 164/106 08/16/18 08:00 82 08/16/18 08:00 97.5 87 20 164/106 (125) 97 08/16/18 07:55 80 18 Nasal Cannula 3.0 32 08/16/18 07:55 97 Nasal Cannula 3.0 32 08/16/18 07:55 Nasal Cannula 3.0 32 08/16/18 04:00 82 08/16/18 04:00 97.9 58 20 128/62 (84) 96 08/16/18 00:00 89 08/15/18 22:30 71 18 97 Nasal Cannula 2.0 28 08/15/18 22:20 68 18 97 Nasal Cannula 3.0 32 08/15/18 21:00 Room Air Intake and Output 08/15/18 08/16/18 18:59 06:59 Intake Total 1880 ml Balance 1880 ml Intake Oral 1880 ml # Voids 6 # Bowel Movements 1 Laboratory Tests 08/16/18 05:00: White Blood Count 10.6, Red Blood Count 4.54L, Hemoglobin 15.0, Hematocrit 46.5 , Mean Corpuscular Volume 102H, Mean Corpuscular Hemoglobin 33.1H, Mean Corpuscular Hemoglobin Concent 32.4, Red Cell Distribution Width 13.1, Platelet Count 185, Mean Platelet Volume 4.7L, Neutrophils (%) (Auto) 67.1, Lymphocytes ( %) (Auto) 24.8, Monocytes (%) (Auto) 6.7, Eosinophils (%) (Auto) 0.2, Basophils (%) (Auto) 1.3, Sodium Level 140, Potassium Level 4.9, Chloride Level 101, Carbon Dioxide Level 26, Anion Gap 14, Blood Urea Nitrogen 27H, Creatinine 1.3, Estimat Glomerular Filtration Rate 57.5, Glucose Level 49L, Calcium Level 8.8 Height (Feet): 6 Height (Inches): 10.00 Weight (Pounds): 385 Neck: normal alignment Cardiovascular: normal rate Respiratory/Chest: lungs clear Vadim Tang MD Aug 16, 2018 20:38
[2018-08-16 21:00] VITALS: BP 127/86
--- NOTE | 2018-08-16 23:18 | Cardiology Progress Note ---
Assessment/Plan Assessment/Plan 1. Dyspnea likely due to acute exacerbation of COPD, echocardiography in Jun 2018 in this facility reveals normal LV systolic and diastolic function with LVEF at 55% and normal pulmonary artery pressure. 2. Morbid obesity with BMI of 52 and large pannus. 3. Hx of HTN, continue amlodipine and lasix for now, ultimately would replace lasix by thiazide diuretics. 4. Hx of hyperlipidemia 5. Obesity hypoventilation syndrome. Subjective Subjective Not on the media monitor. No cardiac events. On [place] oxygen. Objective Last 24 Hour Vital Signs Date Time Temp Pulse Resp B/P (MAP) Pulse Ox O2 Delivery O2 Flow Rate FiO2 08/16/18 23:04 68 18 97 Nasal Cannula 3.0 32 08/16/18 21:00 Nasal Cannula 2.0 08/16/18 21:00 98.3 85 20 127/86 (100) 99 08/16/18 19:31 98 Nasal Cannula 3.0 32 08/16/18 19:31 Nasal Cannula 3.0 32 08/16/18 19:31 84 18 Nasal Cannula 3.0 32 08/16/18 16:00 98.4 64 20 156/86 (109) 98 08/16/18 11:39 97.7 67 20 134/77 (96) 100 08/16/18 10:42 97.5 08/16/18 09:00 Room Air 08/16/18 08:26 87 164/106 08/16/18 08:00 82 08/16/18 08:00 97.5 87 20 164/106 (125) 97 08/16/18 07:55 80 18 Nasal Cannula 3.0 32 08/16/18 07:55 97 Nasal Cannula 3.0 32 08/16/18 07:55 Nasal Cannula 3.0 32 08/16/18 04:00 82 08/16/18 04:00 97.9 58 20 128/62 (84) 96 08/16/18 00:00 89 Intake and Output 08/15/18 08/16/18 18:59 06:59 Intake Total 1880 ml Balance 1880 ml Intake Oral 1880 ml # Voids 6 # Bowel Movements 1 Laboratory Tests Test 08/16/18 05:00 White Blood Count 10.6 K/UL (4.8-10.8) Red Blood Count 4.54 M/UL (4.70-6.10) L Hemoglobin 15.0 G/DL (14.2-18.0) Hematocrit 46.5 % (42.0-52.0) Mean Corpuscular Volume 102 FL (80-99) H Mean Corpuscular Hemoglobin 33.1 PG (27.0-31.0) H Mean Corpuscular Hemoglobin Concent 32.4 G/DL (32.0-36.0) Red Cell Distribution Width 13.1 % (11.6-14.8) Platelet Count 185 K/UL (150-450) Mean Platelet Volume 4.7 FL (6.5-10.1) L Neutrophils (%) (Auto) 67.1 % (45.0-75.0) Lymphocytes (%) (Auto) 24.8 % (20.0-45.0) Monocytes (%) (Auto) 6.7 % (1.0-10.0) Eosinophils (%) (Auto) 0.2 % (0.0-3.0) Basophils (%) (Auto) 1.3 % (0.0-2.0) Sodium Level 140 MMOL/L (136-145) Potassium Level 4.9 MMOL/L (3.5-5.1) Chloride Level 101 MMOL/L (98-107) Carbon Dioxide Level 26 MMOL/L (21-32) Anion Gap 14 mmol/L (5-15) Blood Urea Nitrogen 27 mg/dL (7-18) H Creatinine 1.3 MG/DL (0.55-1.30) Estimat Glomerular Filtration Rate 57.5 mL/min (>60) Glucose Level 49 MG/DL (74-106) L Calcium Level 8.8 MG/DL (8.5-10.1) Objective HEENT: atraumatic, normocephalic, PERRLA, EOMI. Neck: no carotid bruit, JVP <5 cm. Respiratory: Poor respiratory effort, B/L rhonchi Cardiovascular: Normal S1S2, regular rate, rhythm, no murmurs, gallops or rubs. Gastrointestinal: normal bowel sounds, non tender, soft, no guarding, no hernia Musculoskeletal: no edema, clubbing or cyanosis. Carlos Martins MD Aug 16, 2018 23:18
--- NOTE | 2018-08-16 23:45 | Consultation ---
DATE OF CONSULTATION: 08/16/2018 CARDIOLOGY CONSULTATION CONSULTING PHYSICIAN: Carlos Martins M.D. REFERRING PHYSICIAN: Ernesto Nicole D.O. REASON FOR CONSULTATION: Management of shortness of breath. HISTORY OF PRESENT ILLNESS: The patient is a very unfortunate 52-year-old gentleman with a prior history of morbid obesity, obstructive sleep apnea, congestive heart failure, renal failure, hyperlipidemia, hypertension, COPD, depression, epilepsy, who presents to the hospital after increased chest discomfort and difficulty breathing. The patient is sent in from the nursing facility. He has associated increased nonproductive cough. At the time of arrival to the hospital, the patient was felt to be somewhat somnolent. Initial vital signs showed blood pressure of 169/89 mmHg and pulse of 88. He was on non-rebreather mask with FiO2 100%, saturating above 99%. Initial evaluation in the emergency department included troponin I, which showed 0.011, within normal limits as well as proBNP of 235. Chest x-ray showed poor inspiratory effort with no acute congestive heart failure. The patient was admitted to telemetry for further evaluation and management. Cardiology consultation was made at the request of Dr. Nicole to assess this patient from the cardiac standpoint. PAST MEDICAL HISTORY: Congestive heart failure, renal failure, hyperlipidemia, hypertension, COPD, depression, and epilepsy. SURGICAL HISTORY: None. MEDICATIONS: List of medication from the nursing facility included acetaminophen 650 q.4 h. p.r.n. mild pain and temperature above 100.5, albuterol 3 mL inhaler q.4 h. p.r.n. shortness of breath, amlodipine 5 mg p.o. daily, atorvastatin 40 mg p.o. at bedtime, bisacodyl 10 mg rectal daily p.r.n. constipation, clopidogrel 75 mg p.o. daily, promethazine and codeine syrup 5 mL q.4 h. p.r.n. cough, diltiazem 120 mg p.o. daily, Colace 100 mg p.o. daily, Cymbalta 30 mg p.o. daily, furosemide 40 mg p.o. q.8 hours, gabapentin 600 mg three times a day, hydrocodone/acetaminophen 10/325 one tablet q.4 h. p.r.n. moderate pain, DuoNeb 3 mL HHN q.6 h., isosorbide dinitrate 30 mg 3 times a day, Keppra XR 500 mg twice daily, milk of magnesia 30 mL at bedtime p.r.n. constipation, methylprednisolone 4 mg oral p.o. daily for 6 days, morphine sulfate 15 mg oral q.6 h. p.r.n. pain, Fleet Enema 133 mL rectal every other day p.r.n. constipation, nitroglycerin tablets 0.4 mg sublingual q.5 minutes x3 dose p.r.n. chest pain, Zofran 4 mg p.o. q.6 h. p.r.n. nausea and vomiting, MiraLAX 17 g p.o. daily p.r.n. constipation, senna 17.2 mg p.o. at bedtime, Restoril 15 mg p.o. at bedtime p.r.n. insomnia, theophylline 100 mg p.o. daily, and Spiriva inhaler 1 puff daily. ALLERGIES: Aspirin, Ketoralac, and penicillin. SOCIAL HISTORY: Continues to smoke tobacco. Denies any alcohol or illicit drug use. REVIEW OF SYSTEMS: HEENT: Denies any headache, diplopia, or blurred vision. CONSTITUTIONAL: Generalized weakness. Denies any fever, chills, night sweats, or weight loss. CARDIOVASCULAR: Chest congestion and discomfort with associated difficulty breathing. Denies any PND, orthopnea, or leg swelling. PULMONARY: He has got a nonproductive cough as well as shortness of breath and wheezing. GASTROINTESTINAL: Denies any nausea, vomiting, diarrhea, constipation, abdominal pain, or GI bleed. GENITOURINARY: Denies any hematuria, dysuria, or incontinence. NEUROLOGY: Denies any motor dysfunction, sensory deficit, or altered speech. He has history of epilepsy. FAMILY HISTORY: No premature coronary artery disease or arrhythmogenic in the first-degree relative. PHYSICAL EXAMINATION: VITAL SIGNS: Blood pressure is 169/89, respirations 18, pulse of 88, temperature 98.1 degrees Fahrenheit, and O2 saturation 99% on non-rebreather mask. GENERAL: The patient is a very morbidly obese 52-year-old gentleman who appears in no apparent respiratory distress. Alert and oriented x4. HEENT: Atraumatic and normocephalic. Anicteric. Pupils are equal, round, and reactive to light and accommodation. Extraocular muscles intact. NECK: JVP less than 5 cm. No carotid bruits. Carotid upstrokes 2+ bilaterally. CVS: Normal S1, S2. Regular rate and rhythm. No murmurs, gallops, or rubs. LUNGS: Bilateral rhonchi. Hypoventilatory. ABDOMEN: Soft, nontender, and nondistended. No hepatosplenomegaly. There is a large pannus. EXTREMITIES: There is 1+ bilateral lower extremity edema. LABORATORY FINDINGS: WBC 9.5, hematocrit of 13.8, hematocrit of 41.4, and platelet count is 169,000. Sodium 140, potassium is 4.6, chloride 105, bicarbonate 30, BUN of 21, creatinine 0.9, glucose 102, and calcium is 8.5. Troponin-I was 0.01. ProBNP was 235. Chest x-ray showed enlarged heart due to obesity. No acute cardiopulmonary disease. A 12-lead electrocardiogram, sinus rhythm with no acute ST and T-wave abnormalities. ASSESSMENT AND PLAN: The is a very unfortunate 52-year-old gentleman, seen in Cardiology consultation at the request of Dr. Nicole. 1. Dyspnea likely due to acute exacerbation of chronic obstructive pulmonary disease, correlated with physical examination. Echocardiography in June 2018 on his last admission to this facility reveals normal LV systolic and diastolic function, left ventricular ejection fraction is estimated about 55%. There is also normal pulmonary artery pressure. 2. Morbid obesity with BMI of 52 and large pannus. 3. Obesity hypoventilation Syndrome/Pickwickian. 4. History of hypertension likely due to ADALBERTO and obesity. 5. History of hyperlipidemia. 6. History of renal failure. I would like to decrease the dose of Lasix in this patient to avoid prerenal azotemia. I would like to thank, Dr. Tang, for allowing me to participate in the care of this patient. Carlos Martins M.D. DR: MAE JOB#: [id number] CC:
[2018-08-17] VITALS: BP 125/82
[2018-08-17 04:00] VITALS: BP 133/77
--- NOTE | 2018-08-17 04:18 | NUR ---
NURSE NOTES: Pt skin in the groin area and underneath abdomen was red, moisture barrier cream and calazine lotion applied to the areas.
[2018-08-17 05:53] LABS: BASOPHILS % (AUTO) 1.1 % (0.0-2.0); EOSINOPHILS % (AUTO) 0.2 % (0.0-3.0); HEMATOCRIT 42.3 % (42.0-52.0); HEMOGLOBIN 13.8 G/DL (14.2-18.0); LYMPHOCYTES % (AUTO) 20.8 % (20.0-45.0); MEAN CORPUSCULAR VOLUME 101 FL (80-99); MONOCYTES % (AUTO) 5.2 % (1.0-10.0); NEUTROPHILS % (AUTO) 72.6 % (45.0-75.0); PLATELET COUNT 140 K/UL (150-450); RED BLOOD COUNT 4.19 M/UL (4.70-6.10); RED CELL DISTRIBUTION WIDTH 12.3 % (11.6-14.8); WHITE BLOOD COUNT 10.5 K/UL (4.8-10.8)
[2018-08-17 06:01] LABS: ANION GAP 5 mmol/L (5-15); BLOOD UREA NITROGEN 29 mg/dL (7-18); CALCIUM 8.8 MG/DL (8.5-10.1); CARBON DIOXIDE 31 MMOL/L (21-32); CHLORIDE 101 MMOL/L (98-107); CREATININE 1.1 MG/DL (0.55-1.30); POTASSIUM 4.5 MMOL/L (3.5-5.1); SODIUM 137 MMOL/L (136-145)
--- NOTE | 2018-08-17 07:18 | NUR ---
HAND-OFF: Report given to MICAELA Delacruz.
--- NOTE | 2018-08-17 07:50 | NUR ---
NURSE NOTES: Received report from MICAELA Silva. Rounding done with outgoing nurse. Patient a/o x4. Denies pain at this time. No respiratory discomfort noted. Patient on o2 2L at this time. Bed in lowest position and call light within reach. Will continue to monitor.
[2018-08-17 08:00] VITALS: BP 101/72
[2018-08-17] MEDS: Albuterol/Ipratropium 3ml neb HHN PRN ×4 (08:04→23:10)
[2018-08-17] MEDS: DULoxetine 30mg cap ORAL SCH (08:57)
[2018-08-17] MEDS: Solu-MEDROL 125mg Inj IV SCH (08:58)
[2018-08-17] MEDS: Theophylline ER 100mg ORAL SCH ×2 (08:58→20:00)
[2018-08-17] MEDS ORDERED: Solu-MEDROL 125mg Inj IV SCH (09:00)
[2018-08-17] MEDS ORDERED: Furosemide 40mg tab ORAL SCH (09:00)
[2018-08-17] MEDS: Heparin 5000 units/ml inj SUBQ SCH ×2 (09:00→20:46)
[2018-08-17 12:00] VITALS: BP 115/76
--- NOTE | 2018-08-17 14:19 | Diagnostic Imaging Report ---
Indication: Shortness of breath Technique: XRAY Chest 1v Comparison: 08/13/2018 Findings: Limited exam due to patient body habitus and low lung volumes. Heart size and mediastinal contours are stable. Pulmonary vascularity is prominent. This may be artifactual related to low lung volumes and AP technique. Possibility of CHF not excludable. No definite focal consolidation. No pleural effusion or pneumothorax. No appreciable acute osseous normality although evaluation for such is significantly limited. IMPRESSION: Limited exam as above. Prominent pulmonary vascularity which may be artifactual related to low lung volumes. Possibility of congestive changes/CHF not excludable. Correlate clinically. Overall findings are similar to the prior exam of 08/13/2018
--- NOTE | 2018-08-17 14:30 | Pulmonology Progress Note ---
Assessment/Plan Problems: (1) COPD (chronic obstructive pulmonary disease) (2) Seizures (3) Peripheral edema (4) Morbid obesity Assessment/Plan still lots of complains about swelling of lower abdomen pt wants dilaudid for his knee pain respiratory condition improving titrate fio2 to sat of 92% dvt prophylaxis. symptomatic treatment Subjective ROS Limited/Unobtainable: No Constitutional: Reports: no symptoms HEENT: Repors: no symptoms Respiratory: Reports: no symptoms Allergies: Coded Allergies: ASPIRIN (Verified Allergy, Unknown, 07/14/18) KETOROLAC (Verified Allergy, Unknown, 07/14/18) PENICILLINS (Verified Allergy, Unknown, 07/14/18) Objective Last 24 Hour Vital Signs Date Time Temp Pulse Resp B/P (MAP) Pulse Ox O2 Delivery O2 Flow Rate FiO2 08/17/18 12:09 76 20 99 Nasal Cannula 3.0 32 08/17/18 12:00 98.2 73 20 115/76 (89) 96 08/17/18 11:58 71 20 96 Nasal Cannula 3.0 32 08/17/18 09:00 Nasal Cannula 3.0 08/17/18 09:00 102 101/72 08/17/18 08:14 102 21 99 Nasal Cannula 3.0 32 08/17/18 08:04 99 19 98 Nasal Cannula 3.0 32 08/17/18 08:00 97.6 100 20 101/72 (82) 99 08/17/18 07:58 98 Nasal Cannula 3.0 32 08/17/18 07:58 Nasal Cannula 3.0 32 08/17/18 07:57 102 19 Nasal Cannula 3.0 32 08/17/18 04:00 97.3 78 20 133/77 (95) 95 08/17/18 01:29 81 23 100 Facial 35 08/17/18 00:00 98.1 81 17 125/82 (96) 99 08/16/18 23:20 87 18 99 Nasal Cannula 2.0 28 08/16/18 23:20 79 19 99 Facial 35 08/16/18 23:04 68 18 97 Nasal Cannula 3.0 32 08/16/18 21:00 Nasal Cannula 2.0 08/16/18 21:00 98.3 85 20 127/86 (100) 99 08/16/18 19:31 98 Nasal Cannula 3.0 32 08/16/18 19:31 Nasal Cannula 3.0 32 08/16/18 19:31 84 18 Nasal Cannula 3.0 32 08/16/18 16:00 98.4 64 20 156/86 (109) 98 Intake and Output 08/16/18 08/17/18 19:00 07:00 Intake Total 3850 ml 1000 ml Balance 3850 ml 1000 ml Intake Oral 3850 ml 1000 ml # Voids 3 3 # Bowel Movements 1 2 General Appearance: WD/WN HEENT: normocephalic, atraumatic Respiratory/Chest: chest wall non-tender, normal breath sounds Cardiovascular: normal peripheral pulses, regular rhythm Abdomen: normal bowel sounds, soft, non tender Extremities: no cyanosis, no clubbing Skin: no rash Laboratory Tests 08/17/18 05:00: White Blood Count 10.5, Red Blood Count 4.19L, Hemoglobin 13.8L, Hematocrit 42.3 , Mean Corpuscular Volume 101H, Mean Corpuscular Hemoglobin 33.0H, Mean Corpuscular Hemoglobin Concent 32.7, Red Cell Distribution Width 12.3, Platelet Count 140L, Mean Platelet Volume 5.1L, Neutrophils (%) (Auto) 72.6, Lymphocytes (%) (Auto) 20.8, Monocytes (%) (Auto) 5.2, Eosinophils (%) (Auto) 0.2, Basophils (%) (Auto) 1.1, Sodium Level 137, Potassium Level 4.5, Chloride Level 101, Carbon Dioxide Level 31, Anion Gap 5, Blood Urea Nitrogen 29H, Creatinine 1.1, Estimat Glomerular Filtration Rate > 60, Glucose Level 96, Calcium Level 8.8 Current Medications Medications (Trade) Dose Ordered Sig/Luis Route PRN Reason Start Time Stop Time Status Last Admin Dose Admin Albuterol/ Ipratropium (Albuterol/ Ipratropium) 3 ml Q4H PRN HHN dyspnea 08/16/18 13:00 08/18/18 12:59 08/17/18 11:58 Amlodipine Besylate (Norvasc) 5 mg DAILY ORAL 08/17/18 09:00 09/12/18 08:59 Atorvastatin Calcium (Lipitor) 40 mg BEDTIME ORAL 08/16/18 21:00 09/12/18 20:59 08/16/18 20:19 Clopidogrel Bisulfate (Plavix) 75 mg DAILY ORAL 08/17/18 09:00 09/12/18 08:59 08/17/18 08:59 Dextrose (Dextrose 50%) 25 ml Q30M PRN IV Hypoglycemia 08/16/18 12:45 09/12/18 07:14 Dextrose (Dextrose 50%) 50 ml Q30M PRN IV Hypoglycemia 08/16/18 12:45 09/12/18 07:14 Duloxetine HCl (Cymbalta) 30 mg DAILY ORAL 08/17/18 09:00 09/12/18 08:59 08/17/18 08:57 Furosemide (Lasix) 20 mg DAILY ORAL 08/17/18 09:00 09/16/18 08:59 08/17/18 08:58 Gabapentin (Neurontin) 600 mg THREE TIMES A DAY ORAL 08/16/18 13:00 09/12/18 08:59 08/17/18 12:52 Heparin Sodium (Porcine) (Heparin 5000 units/ml) 5,000 units EVERY 12 HOURS SUBQ 08/16/18 21:00 09/12/18 08:59 08/16/18 20:22 Hydromorphone HCl (Dilaudid) 2 mg Q4H PRN IVP Severe Pain (Pain Scale 7-10) 08/16/18 15:15 08/21/18 23:14 08/17/18 14:25 Levetiracetam (Keppra) 500 mg Q12HR ORAL 08/16/18 21:00 09/12/18 08:59 08/17/18 08:58 Lorazepam (Ativan 2mg/ml 1ml) 0.5 mg Q4H PRN IV For Anxiety 08/16/18 13:00 08/20/18 12:59 Lorazepam (Ativan) 1 mg Q6H PRN ORAL For Anxiety 08/16/18 13:00 08/20/18 12:59 Methylprednisolone Sodium Succinate (Solu-MEDROL) 40 mg DAILY IV 08/17/18 09:00 09/12/18 11:59 08/17/18 08:58 Nitroglycerin (Ntg) 0.4 mg Q5M X 3 DOSES PRN SL Prn Chest Pain 08/16/18 12:45 09/12/18 07:14 Ondansetron HCl (Zofran) 4 mg Q6H PRN IVP Nausea & Vomiting 08/16/18 13:15 09/12/18 07:14 Promethazine HCl/ Codeine (Phenergan with Codeine) 5 ml Q6H PRN ORAL cough 08/16/18 13:00 09/12/18 12:59 Temazepam (Restoril) 15 mg HSPRN PRN ORAL Insomnia 08/16/18 20:00 08/20/18 19:59 Theophylline (George-Dur) 100 mg EVERY 12 HOURS ORAL 08/16/18 21:00 09/12/18 08:59 08/17/18 08:58 Bill Dixon MD Aug 17, 2018 14:30
--- NOTE | 2018-08-17 14:37 | NUR ---
GENERATOR TECHNICIANPANEL GLUER SI: COPD EXACERBATION T. 98.2 HR 73 RR 20 B/P 115/76 NC 3L BUN 29 IS: SOLU MEDROL IV NIRAV-DUR PO HEPARIN SUBC MED/SURG STATUS
[2018-08-17 16:00] VITALS: BP 107/60
--- NOTE | 2018-08-17 19:43 | NUR ---
HAND-OFF: Report given to Hitesh Uribe RN.
--- NOTE | 2018-08-17 19:45 | Consultation ---
DATE OF CONSULTATION: 08/17/2018 CONSULTING PHYSICIAN: Cece Magaña M.D. CHIEF COMPLAINT: Right knee pain and low back pain. HISTORY OF PRESENT ILLNESS: The patient is a 52-year-old gentleman for initial complaints and pain management consultation. He has been suffering from morbid obesity and COPD. He reports that he uses morphine and oxycodone at home for pain relief, but the pain has been very severe and he has been scheduled for knee replacement on the right side for next week. He has had a trauma on the right knee and has been this pain for long time. He also had a trauma to his low back and has severe back pain, which he has never had any surgery for it. His medical condition also is not optimal to get all the proper surgeries. At this time, he is on Dilaudid 2 mg, which is, IV has been given to him. He reports that he is doing okay on this pain medication and pain is controlled. I discussed with him that narcotic use for his arthritis, knee pain, back pain, for chronic use has not been recommended and he needs to be tapered down this after the surgery. He understand and agrees with it. At this point, there are no other options to control the pain. PAST MEDICAL HISTORY: Congestive heart failure, high cholesterol, hypertension, COPD, depression, and epilepsy. PAST SURGICAL HISTORY: Multiple knee surgeries. SOCIAL HISTORY: He smokes. Denies drinking alcohol or any drug abuse. ALLERGIES: Aspirin, Ketoralac, and penicillin. MEDICATIONS: Currently in the hospital; the patient is on amlodipine, Plavix, Cymbalta, Solu-Medrol, Lasix, Lipitor, heparin, Keppra, theophylline, temazepam, Dilaudid, Zofran, albuterol, ipratropium, gabapentin, lorazepam, promethazine, codeine, and nitroglycerin. REVIEW OF SYSTEMS: Denies rash, fever, chills, sweating, dizziness, drowsiness, blurred vision, sore throat, change of hearing or weight. Denies chest pain or palpitations, but complains of shortness of breath on exertion. No nausea, vomiting, or abdominal pain. No blood in the stool or urine. No bowel and bladder incontinence. Complains of severe pain at bilateral knees, right more than left. No weakness and numbness in lower extremity or upper extremity, but has problem moving due to pain and severe obesity. PHYSICAL EXAMINATION: GENERAL: The patient is alert, awake, and oriented x3. VITAL SIGNS: Blood pressure 101/72, pulse 102, respirations 21, and temperature 97.6. HEENT: PERRLA. NECK: Range of motion limited. Tenderness on bilateral paracervical muscles and no adenopathy. LUNGS: Bilateral breath sounds decreased. HEART: S1 and S2. Tachy. ABDOMEN: Obese, nontender. EXTREMITIES: Bilateral lower extremity swelling, some redness at the right lower extremity around ankle and mid calf. Scar of the surgery at the right knee. NEUROLOGIC: No focal deficit. ASSESSMENT AND PLAN: 1. Morbid obesity. 2. Knee osteoarthritis, status post fracture at right side. 3. Severe knee pain. 4. Low back pain. We will continue Dilaudid 2 mg IV until surgery. As mentioned above, I discussed with the patient that he cannot stay on narcotic for his pain issues especially arthritis and low back pain, but since he is going for surgery next week we will keep him on a same dose until later. We will follow about the patient's thorough investigation. Cece Magaña M.D. DR: ADOLFO JOB#: [id number] CC:
[2018-08-17 20:00] VITALS: BP 150/70
--- NOTE | 2018-08-17 20:00 | NUR ---
NURSE NOTES: Patient in bed awake and oriented. VSS. No SOB noted. No pain noted at this time. Ate his night snack 100%. O2 saturation at 95%. Needs attended. due meds given. In stable condition.
[2018-08-17] MEDS: Atorvastatin 20mg tab ORAL SCH (20:01)
--- NOTE | 2018-08-17 21:46 | General Progress Note ---
Assessment/Plan Problem List: (1) Morbid obesity ICD Codes: E66.01 - Morbid (severe) obesity due to excess calories SNOMED: 432257207 (2) Right heart failure ICD Codes: I50.810 - Right heart failure, unspecified SNOMED: 064205837 (3) Seizures ICD Codes: R56.9 - Unspecified convulsions SNOMED: 39711468 (4) Peripheral edema ICD Codes: R60.9 - Edema, unspecified SNOMED: 610508106 (5) COPD (chronic obstructive pulmonary disease) ICD Codes: J44.9 - Chronic obstructive pulmonary disease, unspecified SNOMED: 26860971 Status: progressing Assessment/Plan copd improving no seizures right sided heart failure no wheezing right heart failure obesity reviewed chart and labs chf no siezure vitals stable no acute events Subjective ROS Limited/Unobtainable: Yes Allergies: Coded Allergies: ASPIRIN (Verified Allergy, Unknown, 07/14/18) KETOROLAC (Verified Allergy, Unknown, 07/14/18) PENICILLINS (Verified Allergy, Unknown, 07/14/18) Objective Last 24 Hour Vital Signs Date Time Temp Pulse Resp B/P (MAP) Pulse Ox O2 Delivery O2 Flow Rate FiO2 08/17/18 20:00 98.6 59 20 150/70 (96) 94 08/17/18 16:00 98.2 74 19 107/60 (76) 97 08/17/18 15:56 68 19 98 Nasal Cannula 3.0 32 08/17/18 15:45 50 22 97 Nasal Cannula 3.0 32 08/17/18 12:09 76 20 99 Nasal Cannula 3.0 32 08/17/18 12:00 98.2 73 20 115/76 (89) 96 08/17/18 11:58 71 20 96 Nasal Cannula 3.0 32 08/17/18 09:00 Nasal Cannula 3.0 08/17/18 09:00 102 101/72 08/17/18 08:14 102 21 99 Nasal Cannula 3.0 32 08/17/18 08:04 99 19 98 Nasal Cannula 3.0 32 08/17/18 08:00 97.6 100 20 101/72 (82) 99 08/17/18 07:58 98 Nasal Cannula 3.0 32 08/17/18 07:58 Nasal Cannula 3.0 32 08/17/18 07:57 102 19 Nasal Cannula 3.0 32 08/17/18 04:00 97.3 78 20 133/77 (95) 95 08/17/18 01:29 81 23 100 Facial 35 08/17/18 00:00 98.1 81 17 125/82 (96) 99 08/16/18 23:20 87 18 99 Nasal Cannula 2.0 28 08/16/18 23:20 79 19 99 Facial 35 08/16/18 23:04 68 18 97 Nasal Cannula 3.0 32 Intake and Output 08/16/18 08/17/18 18:59 06:59 Intake Total 3850 ml 1000 ml Balance 3850 ml 1000 ml Intake Oral 3850 ml 1000 ml # Voids 3 3 # Bowel Movements 1 2 Laboratory Tests 08/17/18 05:00: White Blood Count 10.5, Red Blood Count 4.19L, Hemoglobin 13.8L, Hematocrit 42.3 , Mean Corpuscular Volume 101H, Mean Corpuscular Hemoglobin 33.0H, Mean Corpuscular Hemoglobin Concent 32.7, Red Cell Distribution Width 12.3, Platelet Count 140L, Mean Platelet Volume 5.1L, Neutrophils (%) (Auto) 72.6, Lymphocytes (%) (Auto) 20.8, Monocytes (%) (Auto) 5.2, Eosinophils (%) (Auto) 0.2, Basophils (%) (Auto) 1.1, Sodium Level 137, Potassium Level 4.5, Chloride Level 101, Carbon Dioxide Level 31, Anion Gap 5, Blood Urea Nitrogen 29H, Creatinine 1.1, Estimat Glomerular Filtration Rate > 60, Glucose Level 96, Calcium Level 8.8 Height (Feet): 6 Height (Inches): 10.00 Weight (Pounds): 385 Cardiovascular: normal rate Respiratory/Chest: lungs clear Abdomen: soft Vadim Tang MD Aug 17, 2018 21:46
--- NOTE | 2018-08-17 22:34 | Cardiology Progress Note ---
Assessment/Plan Assessment/Plan 1. Dyspnea likely due to acute exacerbation of COPD, echocardiography in Jun 2018 in this facility reveals normal LV systolic and diastolic function with LVEF at 55% and normal pulmonary artery pressure. 2. Morbid obesity with BMI of 52 and large pannus. 3. Hx of HTN, continue amlodipine and lasix. Creat is downtrending. 4. Hx of hyperlipidemia 5. Obesity hypoventilation syndrome. Subjective Subjective Not on the bus monitor. No cardiac events. Objective Last 24 Hour Vital Signs Date Time Temp Pulse Resp B/P (MAP) Pulse Ox O2 Delivery O2 Flow Rate FiO2 08/17/18 21:00 Nasal Cannula 3.0 08/17/18 20:00 98.6 59 20 150/70 (96) 94 08/17/18 16:00 98.2 74 19 107/60 (76) 97 08/17/18 15:56 68 19 98 Nasal Cannula 3.0 32 08/17/18 15:45 50 22 97 Nasal Cannula 3.0 32 08/17/18 12:09 76 20 99 Nasal Cannula 3.0 32 08/17/18 12:00 98.2 73 20 115/76 (89) 96 08/17/18 11:58 71 20 96 Nasal Cannula 3.0 32 08/17/18 09:00 Nasal Cannula 3.0 08/17/18 09:00 102 101/72 08/17/18 08:14 102 21 99 Nasal Cannula 3.0 32 08/17/18 08:04 99 19 98 Nasal Cannula 3.0 32 08/17/18 08:00 97.6 100 20 101/72 (82) 99 08/17/18 07:58 98 Nasal Cannula 3.0 32 08/17/18 07:58 Nasal Cannula 3.0 32 08/17/18 07:57 102 19 Nasal Cannula 3.0 32 08/17/18 04:00 97.3 78 20 133/77 (95) 95 08/17/18 01:29 81 23 100 Facial 35 08/17/18 00:00 98.1 81 17 125/82 (96) 99 08/16/18 23:20 87 18 99 Nasal Cannula 2.0 28 08/16/18 23:20 79 19 99 Facial 35 08/16/18 23:04 68 18 97 Nasal Cannula 3.0 32 Intake and Output 08/16/18 08/17/18 18:59 06:59 Intake Total 3850 ml 1000 ml Balance 3850 ml 1000 ml Intake Oral 3850 ml 1000 ml # Voids 3 3 # Bowel Movements 1 2 2D Echo: LVEF 65%, Milkd LVH, Moderate SELAM, RVSP 25 mmHg Laboratory Tests Test 08/17/18 05:00 White Blood Count 10.5 K/UL (4.8-10.8) Red Blood Count 4.19 M/UL (4.70-6.10) L Hemoglobin 13.8 G/DL (14.2-18.0) L Hematocrit 42.3 % (42.0-52.0) Mean Corpuscular Volume 101 FL (80-99) H Mean Corpuscular Hemoglobin 33.0 PG (27.0-31.0) H Mean Corpuscular Hemoglobin Concent 32.7 G/DL (32.0-36.0) Red Cell Distribution Width 12.3 % (11.6-14.8) Platelet Count 140 K/UL (150-450) L Mean Platelet Volume 5.1 FL (6.5-10.1) L Neutrophils (%) (Auto) 72.6 % (45.0-75.0) Lymphocytes (%) (Auto) 20.8 % (20.0-45.0) Monocytes (%) (Auto) 5.2 % (1.0-10.0) Eosinophils (%) (Auto) 0.2 % (0.0-3.0) Basophils (%) (Auto) 1.1 % (0.0-2.0) Sodium Level 137 MMOL/L (136-145) Potassium Level 4.5 MMOL/L (3.5-5.1) Chloride Level 101 MMOL/L (98-107) Carbon Dioxide Level 31 MMOL/L (21-32) Anion Gap 5 mmol/L (5-15) Blood Urea Nitrogen 29 mg/dL (7-18) H Creatinine 1.1 MG/DL (0.55-1.30) Estimat Glomerular Filtration Rate > 60 mL/min (>60) Glucose Level 96 MG/DL (74-106) Calcium Level 8.8 MG/DL (8.5-10.1) Objective HEENT: atraumatic, normocephalic, PERRLA, EOMI. Neck: no carotid bruit, JVP <5 cm. Respiratory: Poor respiratory effort, B/L rhonchi Cardiovascular: Normal S1S2, regular rate, rhythm, no murmurs, gallops or rubs. Gastrointestinal: normal bowel sounds, non tender, soft, no guarding, no hernia Musculoskeletal: no edema, clubbing or cyanosis. Carlos Martins MD Aug 17, 2018 22:34
--- NOTE | 2018-08-17 22:44 | Diagnostic Imaging Report ---
APPROVED REPORT CPT Code: 06547 Present Symptoms Shortness of breath RIGHT LEG: Venous imaging reveals a patent deep venous system. There is no evidence of thrombus within the femoral, popliteal or tibial segments. The greater saphenous vein is also within normal limits. Doppler indicates normal spontaneous flow within these segments. LEFT LEG: Imaging reveals patency of the common femoral, popliteal and calf veins. Greater saphenous vein within normal limits. Doppler indicates normal spontaneous flow within these segments. Left femoral vein is not visualized well due to patient body habitus.
--- NOTE | 2018-08-18 | NUR ---
NURSE NOTES: Patient refused Bipap machine per RT. R/B explained to patient will try again later. In stable condition. Bed in low position. Call light within reach.
[2018-08-18 00:17] VITALS: BP 140/81
[2018-08-18 04:06] VITALS: BP 144/78
[2018-08-18 08:00] VITALS: BP 120/88
--- NOTE | 2018-08-18 08:07 | NUR ---
NURSE NOTES: Received report from Hitesh HINOJOSA. On rounds patient is sitting up in bed eating breakfast. No s/s acute distress noted. Patient reporting some abdominal pain, educated patient that pain medication will be given when due, patient in agreement. Side rails upx3 and padded, fall and seizure precautions maintained. Call light in reach and patient reminded in use. Will continue to monitor.
[2018-08-18] MEDS: Albuterol/Ipratropium 3ml neb HHN PRN (08:18)
--- NOTE | 2018-08-18 09:18 | NUR ---
NURSE NOTES: Informed Dr. Dixon that patient's platelet count yesterday was 140. MD ordered to hold heparin this morning. Will hold as ordered. Will continue to monitor.
[2018-08-18] MEDS: Heparin 5000 units/ml inj SUBQ SCH ×2 (09:30→21:00)
[2018-08-18] MEDS: Theophylline ER 100mg ORAL SCH ×2 (09:37→21:00)
[2018-08-18] MEDS: DULoxetine 30mg cap ORAL SCH (09:37)
[2018-08-18] MEDS: Solu-MEDROL 125mg Inj IV SCH (09:37)
--- NOTE | 2018-08-18 10:11 | General Progress Note ---
Assessment/Plan Problem List: (1) Knee osteomyelits, right ICD Codes: M86.9 - Osteomyelitis, unspecified SNOMED: 05727043, 926875362 (2) Lumbar spondylosis ICD Codes: M47.816 - Spondylosis without myelopathy or radiculopathy, lumbar region SNOMED: 596963960 (3) Morbid obesity ICD Codes: E66.01 - Morbid (severe) obesity due to excess calories SNOMED: 932839930 (4) COPD (chronic obstructive pulmonary disease) ICD Codes: J44.9 - Chronic obstructive pulmonary disease, unspecified SNOMED: 85081210 Status: doing well, stable Assessment/Plan I d/w pt and he agreed to change Dilaudid to Po tomorrow. Subjective Constitutional: Denies: no symptoms, chills, diaphoresis, fever, malaise, weakness, other HEENT: Denies: no symptoms, eye pain, blurred vision, tearing, double vision, ear pain, ear discharge, nose pain, nose congestion, throat pain, throat swelling, mouth pain, mouth swelling, other Cardiovascular: Denies: no symptoms, chest pain, edema, irregular heart rate, lightheadedness, palpitations, syncope, other Respiratory: Reports: orthopnea, shortness of breath, SOB with excertion; Denies: cough, SOB at rest, sputum, stridor, wheezing, other Gastrointestinal/Abdominal: Denies: no symptoms, abdomen distended, abdominal pain, black stools, tarry stools, blood in stool, constipated, diarrhea, difficulty swallowing, nausea, poor appetite, poor fluid intake, rectal bleeding , vomiting, other Genitourinary: Denies: no symptoms, burning, discharge, frequency, flank pain, hematuria, incontinence, pain, urgency, other Neurologic/Psychiatric: Denies: no symptoms, anxiety, depressed, emotional problems, headache, numbness, paresthesia, pre-existing deficit, seizure, tingling, tremors, weakness, other Allergies: Coded Allergies: ASPIRIN (Verified Allergy, Unknown, 07/14/18) KETOROLAC (Verified Allergy, Unknown, 07/14/18) PENICILLINS (Verified Allergy, Unknown, 07/14/18) Subjective I d/w pt that he needs to come off the Dilaudid IV and be on oral regimen. He reports that pain is very severe and can not tolerate but I explained to him that he is not able to walk due to his knee problem and getting narcotic IV and laying down considering his morbid obesity is a danger to his health. So he agreed to change Dilaudid ti PO tomorrow. Objective Last 24 Hour Vital Signs Date Time Temp Pulse Resp B/P (MAP) Pulse Ox O2 Delivery O2 Flow Rate FiO2 08/18/18 09:38 79 120/88 08/18/18 08:28 66 20 99 Room Air 21 08/18/18 08:18 96 Nasal Cannula 3.0 32 08/18/18 08:18 56 20 Room Air 21 08/18/18 08:18 Nasal Cannula 3.0 32 08/18/18 08:18 56 20 96 Room Air 21 08/18/18 08:00 98.0 79 20 120/88 (99) 96 08/18/18 04:06 98.1 51 19 144/78 (100) 96 08/18/18 00:17 98.3 49 21 140/81 (100) 96 08/17/18 23:22 62 19 98 Nasal Cannula 3.0 32 08/17/18 23:10 Nasal Cannula 3.0 32 08/17/18 23:10 45 16 Nasal Cannula 3.0 32 08/17/18 23:10 45 16 98 08/17/18 23:10 45 16 98 Nasal Cannula 3.0 32 08/17/18 23:10 98 Nasal Cannula 3.0 32 08/17/18 21:00 Nasal Cannula 3.0 08/17/18 20:00 98.6 59 20 150/70 (96) 94 08/17/18 16:00 98.2 74 19 107/60 (76) 97 08/17/18 15:56 68 19 98 Nasal Cannula 3.0 32 08/17/18 15:45 50 22 97 Nasal Cannula 3.0 32 08/17/18 12:09 76 20 99 Nasal Cannula 3.0 32 08/17/18 12:00 98.2 73 20 115/76 (89) 96 08/17/18 11:58 71 20 96 Nasal Cannula 3.0 32 Intake and Output 08/17/18 08/18/18 19:00 07:00 Intake Total 1334 ml 800 ml Balance 1334 ml 800 ml Intake Oral 1334 ml 800 ml # Voids 2 # Bowel Movements 3 Height (Feet): 6 Height (Inches): 10.00 Weight (Pounds): 385 General Appearance: WD/WN EENT: PERRL/EOMI Neck: non-tender Cardiovascular: normal rate Respiratory/Chest: lungs clear, decreased breath sounds Abdomen: non tender, soft Edema: no edema noted Arm (L), no edema noted Arm (R); 2+ Leg (L), 2+ Leg (R), 2+ Pedal (L), 2+ Pedal (R) 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
--- NOTE | 2018-08-18 10:45 | Progress Note ---
DATE: 08/18/2018 SUBJECTIVE: This is a 52-year-old male patient with chronic obstructive pulmonary disease, but he also has high levels of anxiety and depression, worsened by stress of his medical illness. That is why, attending has requested daily psychiatric consultation. He is still anxious and depressed, has some mood lability as well. MENTAL STATUS EXAMINATION: This is a 52-year-old male. Appearance is disheveled. Attitude, irritable and agitated. Affect, guarded and restricted. Intellect poor. Mood depressed and anxious. Motor activity, psychomotor agitation. Attention span is poor. Orientation x2. Speech is pressured. Thought process, disorganized and illogical. Thought content, auditory hallucinations and paranoid delusions. Insight and judgment is poor. DIAGNOSIS: Major depressive disorder, mild, recurrent, without psychotic features. PLAN: Treat him with Cymbalta 30 mg daily as well as Neurontin mg three times a day, Ativan 1 mg every six hours p.r.n. anxiety and agitation and provided with 20 minutes of supportive psychotherapy. Provided him with 20 minutes of cognitive behavioral therapy to help him identify automatic negative thoughts and help him convert those negative thoughts to more positive thinking to reduce depression, anxiety, and suicidality. A 20 minutes of cognitive behavioral therapy provided and also more adaptive behavior pattern. Chart is reviewed. Discussed with staff. Seen and assessed at bedside. Laney Mcghee M.D. DR: GUTIERREZ JOB#: [id number] CC:
[2018-08-18 12:00] VITALS: BP 130/82
--- NOTE | 2018-08-18 12:04 | NUR ---
RD ASSESSMENT & RECOMMENDATIONS SEE CARE ACTIVITY FOR COMPLETE ASSESSMENT DAILY ESTIMATED NEEDS: Needs based on obesity, pulmonary, 104kg abw 15-20 kcals/kg 5378-9673 total kcals 1-1.5 g protein/kg 104-156 g total protein Fluid per MD, on lasix NUTRITION DIAGNOSIS: Decreased sodium and fat intake needs R/T cardiac h/o and morbid obesity as evidenced by h/o CHF dx, elev BP, BMI>50. CURRENT DIET:Regular PO DIET RECOMMENDATIONS: CARDIAC diet ADDITIONAL RECOMMENDATIONS: * Obtain a standing weight as able -> REC changing bed to [place] -> On diuretics, requiring daily weights * Monitor BG on solumedrol w/ SSI
--- NOTE | 2018-08-18 12:20 | NUR ---
REHAB MED PT NOTE PATIENT REFUSED PT SESSION AT THIS TIME, DUE TO PAIN IN ABDOMEN, RN AWARE.
--- NOTE | 2018-08-18 13:01 | Pulmonology Progress Note ---
Assessment/Plan Problems: (1) COPD (chronic obstructive pulmonary disease) (2) Seizures (3) Peripheral edema (4) Morbid obesity Assessment/Plan still lots of complains about swelling of lower abdomen pt wants dilaudid for his knee pain respiratory condition improving titrate fio2 to sat of 92% dvt prophylaxis. symptomatic treatment talked to surgeon about resection of the fat on lower abdomen. Subjective ROS Limited/Unobtainable: No Constitutional: Reports: no symptoms HEENT: Repors: no symptoms Respiratory: Reports: no symptoms Allergies: Coded Allergies: ASPIRIN (Verified Allergy, Unknown, 07/14/18) KETOROLAC (Verified Allergy, Unknown, 07/14/18) PENICILLINS (Verified Allergy, Unknown, 07/14/18) Objective Last 24 Hour Vital Signs Date Time Temp Pulse Resp B/P (MAP) Pulse Ox O2 Delivery O2 Flow Rate FiO2 08/18/18 11:04 98.0 08/18/18 09:38 79 120/88 08/18/18 08:28 66 20 99 Room Air 21 08/18/18 08:18 96 Nasal Cannula 3.0 32 08/18/18 08:18 56 20 Room Air 21 08/18/18 08:18 Nasal Cannula 3.0 32 08/18/18 08:18 56 20 96 Room Air 21 08/18/18 08:00 98.0 79 20 120/88 (99) 96 08/18/18 04:06 98.1 51 19 144/78 (100) 96 08/18/18 00:17 98.3 49 21 140/81 (100) 96 08/17/18 23:22 62 19 98 Nasal Cannula 3.0 32 08/17/18 23:10 Nasal Cannula 3.0 32 08/17/18 23:10 45 16 Nasal Cannula 3.0 32 08/17/18 23:10 45 16 98 08/17/18 23:10 45 16 98 Nasal Cannula 3.0 32 08/17/18 23:10 98 Nasal Cannula 3.0 32 08/17/18 21:00 Nasal Cannula 3.0 08/17/18 20:00 98.6 59 20 150/70 (96) 94 08/17/18 16:00 98.2 74 19 107/60 (76) 97 08/17/18 15:56 68 19 98 Nasal Cannula 3.0 32 08/17/18 15:45 50 22 97 Nasal Cannula 3.0 32 Intake and Output 08/17/18 08/18/18 19:00 07:00 Intake Total 1334 ml 800 ml Balance 1334 ml 800 ml Intake Oral 1334 ml 800 ml # Voids 2 # Bowel Movements 3 General Appearance: WD/WN HEENT: normocephalic, atraumatic Respiratory/Chest: chest wall non-tender, lungs clear Cardiovascular: normal peripheral pulses, normal rate Abdomen: no scars Extremities: no cyanosis Skin: no rash Lymphatic: no neck adenopathy Current Medications Medications (Trade) Dose Ordered Sig/Lius Route PRN Reason Start Time Stop Time Status Last Admin Dose Admin Amlodipine Besylate (Norvasc) 5 mg DAILY ORAL 08/17/18 09:00 09/12/18 08:59 08/18/18 09:38 Atorvastatin Calcium (Lipitor) 40 mg BEDTIME ORAL 08/16/18 21:00 09/12/18 20:59 08/17/18 20:01 Clopidogrel Bisulfate (Plavix) 75 mg DAILY ORAL 08/17/18 09:00 09/12/18 08:59 08/18/18 09:37 Dextrose (Dextrose 50%) 25 ml Q30M PRN IV Hypoglycemia 08/16/18 12:45 09/12/18 07:14 Dextrose (Dextrose 50%) 50 ml Q30M PRN IV Hypoglycemia 08/16/18 12:45 09/12/18 07:14 Duloxetine HCl (Cymbalta) 30 mg DAILY ORAL 08/17/18 09:00 09/12/18 08:59 08/18/18 09:37 Furosemide (Lasix) 20 mg DAILY ORAL 08/17/18 09:00 09/16/18 08:59 08/18/18 09:38 Gabapentin (Neurontin) 600 mg THREE TIMES A DAY ORAL 08/16/18 13:00 09/12/18 08:59 08/18/18 09:38 Heparin Sodium (Porcine) (Heparin 5000 units/ml) 5,000 units EVERY 12 HOURS SUBQ 08/16/18 21:00 09/12/18 08:59 08/16/18 20:22 Hydromorphone HCl (Dilaudid) 2 mg Q4H PRN IVP Severe Pain (Pain Scale 7-10) 08/16/18 15:15 08/21/18 23:14 08/18/18 10:34 Levetiracetam (Keppra) 500 mg Q12HR ORAL 08/16/18 21:00 09/12/18 08:59 08/18/18 09:38 Lorazepam (Ativan 2mg/ml 1ml) 0.5 mg Q4H PRN IV For Anxiety 08/16/18 13:00 08/20/18 12:59 Lorazepam (Ativan) 1 mg Q6H PRN ORAL For Anxiety 08/16/18 13:00 08/20/18 12:59 Methylprednisolone Sodium Succinate (Solu-MEDROL) 40 mg DAILY IV 08/17/18 09:00 09/12/18 11:59 08/18/18 09:37 Nitroglycerin (Ntg) 0.4 mg Q5M X 3 DOSES PRN SL Prn Chest Pain 08/16/18 12:45 09/12/18 07:14 Ondansetron HCl (Zofran) 4 mg Q6H PRN IVP Nausea & Vomiting 08/16/18 13:15 09/12/18 07:14 Promethazine HCl/ Codeine (Phenergan with Codeine) 5 ml Q6H PRN ORAL cough 08/16/18 13:00 09/12/18 12:59 Temazepam (Restoril) 15 mg HSPRN PRN ORAL Insomnia 08/16/18 20:00 08/20/18 19:59 Theophylline (George-Dur) 100 mg EVERY 12 HOURS ORAL 08/16/18 21:00 09/12/18 08:59 08/18/18 09:37 Trazodone HCl (Desyrel) 150 mg BEDTIME ORAL 08/18/18 21:00 09/17/18 20:59 Bill Dixon MD Aug 18, 2018 13:01
--- NOTE | 2018-08-18 13:03 | General Progress Note ---
Assessment/Plan Problem List: (1) Morbid obesity ICD Codes: E66.01 - Morbid (severe) obesity due to excess calories SNOMED: 258418122 (2) Peripheral edema ICD Codes: R60.9 - Edema, unspecified SNOMED: 777536299 (3) COPD (chronic obstructive pulmonary disease) ICD Codes: J44.9 - Chronic obstructive pulmonary disease, unspecified SNOMED: 70449788 Status: stable, progressing Assessment/Plan o2 pulm tx taper steroids pt diet cbc bmp am sx eval dc plan Subjective Constitutional: Reports: weakness Allergies: Coded Allergies: ASPIRIN (Verified Allergy, Unknown, 07/14/18) KETOROLAC (Verified Allergy, Unknown, 07/14/18) PENICILLINS (Verified Allergy, Unknown, 07/14/18) All Systems: reviewed and negative except above Subjective sleepy calm Objective Last 24 Hour Vital Signs Date Time Temp Pulse Resp B/P (MAP) Pulse Ox O2 Delivery O2 Flow Rate FiO2 08/18/18 11:04 98.0 08/18/18 09:38 79 120/88 08/18/18 08:28 66 20 99 Room Air 21 08/18/18 08:18 96 Nasal Cannula 3.0 32 08/18/18 08:18 56 20 Room Air 21 08/18/18 08:18 Nasal Cannula 3.0 32 08/18/18 08:18 56 20 96 Room Air 21 08/18/18 08:00 98.0 79 20 120/88 (99) 96 08/18/18 04:06 98.1 51 19 144/78 (100) 96 08/18/18 00:17 98.3 49 21 140/81 (100) 96 08/17/18 23:22 62 19 98 Nasal Cannula 3.0 32 08/17/18 23:10 Nasal Cannula 3.0 32 08/17/18 23:10 45 16 Nasal Cannula 3.0 32 08/17/18 23:10 45 16 98 08/17/18 23:10 45 16 98 Nasal Cannula 3.0 32 08/17/18 23:10 98 Nasal Cannula 3.0 32 08/17/18 21:00 Nasal Cannula 3.0 08/17/18 20:00 98.6 59 20 150/70 (96) 94 08/17/18 16:00 98.2 74 19 107/60 (76) 97 08/17/18 15:56 68 19 98 Nasal Cannula 3.0 32 08/17/18 15:45 50 22 97 Nasal Cannula 3.0 32 Intake and Output 08/17/18 08/18/18 19:00 07:00 Intake Total 1334 ml 800 ml Balance 1334 ml 800 ml Intake Oral 1334 ml 800 ml # Voids 2 # Bowel Movements 3 Height (Feet): 6 Height (Inches): 10.00 Weight (Pounds): 385 General Appearance: lethargic EENT: normal ENT inspection Neck: normal alignment Cardiovascular: normal peripheral pulses, normal rate, regular rhythm Respiratory/Chest: chest wall non-tender, lungs clear, normal breath sounds Abdomen: normal bowel sounds, non tender, soft Extremities: normal inspection Edema: 1+ Arm (L), 1+ Arm (R), 1+ Leg (L), 1+ Leg (R), 1+ Pedal (L), 1+ Pedal ( R), 1+ Generalized Edema: trace edema Neurologic: responsive, motor weakness Skin: normal pigmentation, warm/dry Ernesto Nicole DO Aug 18, 2018 13:03
[2018-08-18 16:00] VITALS: BP 139/75
--- NOTE | 2018-08-18 18:45 | Consultation ---
History of Present Illness General Date patient seen: Aug 18, 2018 Chief Complaint: Chest Pain Reason for Consultation: inflammation of pannus Present Illness HPI 52 year old very pleasant male with multiple medical comorbidities currently presented with chest pain requiring medical care/admission. Hx of COPD on steroids. Very obese but states has lost >300lbs on his own over the past few years. Recently has been developing more and more discomfort from pannus and states it is almost disabling. significant edema noted and inflammation of pannus. surgery called to evaluate. patient seen, chart reviewed, patient examined. Allergies: Coded Allergies: ASPIRIN (Verified Allergy, Unknown, 07/14/18) KETOROLAC (Verified Allergy, Unknown, 07/14/18) PENICILLINS (Verified Allergy, Unknown, 07/14/18) Medication History Scheduled Amlodipine Besylate (Norvasc), 5 MG ORAL DAILY, (Reported) Atorvastatin (Lipitor), 40 MG ORAL BEDTIME, (Reported) Atorvastatin Calcium* (Lipitor*), 80 MG ORAL BEDTIME, (Reported) Clopidogrel* (Clopidogrel*), 75 MG ORAL DAILY, (Reported) Docusate Sodium* (Docusate Sodium*), 100 MG ORAL DAILY, (Reported) Duloxetine Hcl* (Cymbalta*), 30 MG ORAL DAILY, (Reported) Furosemide* (Lasix*), 40 MG ORAL EVERY 8 HOURS, (Reported) Furosemide* (Lasix*), 40 MG ORAL DAILY, (Reported) Gabapentin* (Gabapentin*), 600 MG ORAL THREE TIMES A DAY, (Reported) Gabapentin* (Gabapentin*), 600 MG ORAL THREE TIMES A DAY, (Reported) Ipratropium/Albuterol Sulfate (DuoNeb 0.5-3(2.5)mg/3ml), 3 ML HHN Q6HR, ( Reported) Isosorbide Mononitrate (Isosorbide Mononitrate Er), 30 MG PO DAILY, (Reported) Levetiracetam (Keppra Xr), 500 MG ORAL BID, (Reported) Levetiracetam (Levetiracetam), 500 MG ORAL TWICE A DAY, (Reported) Methylprednisolone (Methylprednisolone*), 4 MG ORAL DIRECTED, (Reported) Morphine Sulfate (Morphine Sulfate Er), 15 MG PO DAILY, (Reported) Prednisone* (Prednisone*), 20 MG ORAL DAILY, (Reported) Sennosides (Senna), 17.2 MG PO BEDTIME, (Reported) Theophylline (Theodur*), 100 MG ORAL TWICE A DAY, (Reported) Tiotropium [place] (Spiriva), 0 INH DAILY, (Reported) Scheduled PRN Acetaminophen* (Acetaminophen 325MG Tablet*), 650 MG ORAL Q4H PRN for Mild Pain/ Temp > 100.5, (Reported) Albuterol Sulfate* (Albuterol Sulfate Hhn*), 3 ML INH Q4H PRN for Shortness of Breath, (Reported) Bisacodyl (Dulcolax), 10 MG RC DAILY PRN for IF MOM INEFFECTIVE, (Reported) Codeine/Promethazine Hcl* (Promethazine-Codeine Syrup*), 5 ML ORAL Q4H PRN for For Cough, (Reported) Codeine/Promethazine Hcl* (Promethazine-Codeine Syrup*), 5 ML ORAL Q4H PRN for For Cough, (Reported) Hydrocodone Bit/Acetaminophen 10-325* ([place] 10-325*), 1 TAB ORAL Q4H PRN for Moderate Pain (Pain Scale 4-6), (Reported) Magnesium Hydroxide* (Milk Of Magnesia*), 30 ML ORAL BEDTIME PRN for IF DOCUSATE INEFFECTIVE, (Reported) Morphine HCl (Morphine Sulfate ER), 15 MG ORAL Q6H PRN for For Pain, (Reported) Na Phos,M-B/Na Phos,Di-Ba* (Fleet Enema*), 133 ML RECTAL QOD PRN for IF DULCOLAX INEFFECTIVE, (Reported) Nitroglycerin (Nitrostat), 0.4 MG SL Q5M X3 DOSES PRN for CHEST PAIN, (Reported) Ondansetron* (Zofran*), 4 MG ORAL Q6H PRN for Nausea & Vomiting, (Reported) Ondansetron* (Zofran*), 4 MG ORAL Q6H PRN for Nausea & Vomiting, (Reported) Polyethylene Glycol 3350* (Miralax*), 17 GM ORAL DAILY PRN for Constipation, ( Reported) Polyethylene Glycol 3350* (Polyethylene Glycol 3350*), 17 GM ORAL BEDTIME PRN for Constipation, (Reported) Temazepam* (Restoril*), 15 MG ORAL BEDTIME PRN for Insomnia, (Reported) Miscellaneous Medications Diltiazem Hcl (Diltiazem Hcl), 120 MG PO, (Reported) Isosorbide Dinitrate (Isosorbide Dinitrate), 30 MG GT, (Reported) Nitroglycerin (Nitroglycerin), 0.3 MG SCONJUNC, (Reported) Theophylline Anhydrous (Theophylline), 100 MG PO, (Reported) Patient History History Provided By: Patient, Medical Record, PMD Healthcare decision maker Resuscitation status Advanced Directive on File No Past Medical/Surgical History Past Medical/Surgical History: (1) Abdominal pannus (2) Leg pain (3) Morbid obesity (4) Seizures (5) Uncontrolled seizures (6) Peripheral edema (7) COPD (chronic obstructive pulmonary disease) (8) Right heart failure (9) Lumbar spondylosis (10) Knee osteomyelits, right Review of Systems Constitutional: Reports: weakness Eye: Denies: no symptoms, see HPI, eye pain, blurred vision, tearing, double vision, nose pain, nose congestion, acuity changes, discharge, other ENT: Denies: no symptoms, see HPI, ear pain, ear discharge, nose pain, nose congestion, throat pain, throat swelling, mouth pain, hearing loss, nasal discharge, other Respiratory: Reports: shortness of breath, stridor Cardiovascular: Denies: no symptoms, see HPI, chest pain, edema, palpitations, syncope, PND, other Gastrointestinal: Reports: abdominal pain, other Genitourinary: Denies: no symptoms, see HPI, discharge, dysuria, frequency, hematuria, pain, retention, incontinence, urgency, vag bleed/dc, other Musculoskeletal: Reports: joint pain, muscle pain Skin: Denies: no symptoms, see HPI, rash, change in color, change in hair/nails , dryness, lesions, other Psychiatric: Denies: no symptoms, see HPI, prior hx, anxiety, depressed feelings, emotional problems, SI, HI, hallucinations, other Neurological: Denies: no symptoms, see HPI, headache, numbness, paresthesia, seizure, tingling, tremors, focal weakness, syncope, dizziness, other Endocrine: Denies: no symptoms, see HPI, excessive sweating, flushing, intolerance to temperature, increased thirst, increased urine, unexplained weight loss, other Hematologic/Lymphatic: Denies: no symptoms, see HPI, anemia, blood clots, easy bleeding, easy bruising, swollen glands, diathesis, other Physical Exam General Appearance: no apparent distress, alert Lines, tubes and drains: peripheral HEENT: mucous membranes moist Neck: normal inspection Respiratory/Chest: chest wall non-tender, decreased breath sounds Cardiovascular/Chest: normal rate Abdomen: soft, tender, other - morbidly obese with large pannus. pannus with dependant edema/lymphatic edema. Extremities: trace edema Skin Exam: warm/dry Neurologic: alert, oriented x 3 Last 24 Hour Vital Signs Date Time Temp Pulse Resp B/P (MAP) Pulse Ox O2 Delivery O2 Flow Rate FiO2 08/18/18 16:00 98.8 71 19 139/75 (96) 98 08/18/18 15:19 98.0 08/18/18 12:00 98.3 71 22 130/82 (98) 96 08/18/18 09:38 79 120/88 08/18/18 09:00 Nasal Cannula 3.0 08/18/18 08:28 66 20 99 Room Air 21 08/18/18 08:18 96 Nasal Cannula 3.0 32 08/18/18 08:18 56 20 Room Air 21 08/18/18 08:18 Nasal Cannula 3.0 32 08/18/18 08:18 56 20 96 Room Air 21 08/18/18 08:00 98.0 79 20 120/88 (99) 96 08/18/18 04:06 98.1 51 19 144/78 (100) 96 08/18/18 00:17 98.3 49 21 140/81 (100) 96 08/17/18 23:22 62 19 98 Nasal Cannula 3.0 32 08/17/18 23:10 Nasal Cannula 3.0 32 08/17/18 23:10 45 16 Nasal Cannula 3.0 32 08/17/18 23:10 45 16 98 08/17/18 23:10 45 16 98 Nasal Cannula 3.0 32 08/17/18 23:10 98 Nasal Cannula 3.0 32 08/17/18 21:00 Nasal Cannula 3.0 08/17/18 20:00 98.6 59 20 150/70 (96) 94 Intake and Output 08/17/18 08/18/18 19:00 07:00 Intake Total 1334 ml 800 ml Balance 1334 ml 800 ml Intake Oral 1334 ml 800 ml # Voids 2 # Bowel Movements 3 Height (Feet): 6 Height (Inches): 10.00 Weight (Pounds): 385 Medications Current Medications Medications (Trade) Dose Ordered Sig/Luis Route PRN Reason Start Time Stop Time Status Last Admin Dose Admin Amlodipine Besylate (Norvasc) 5 mg DAILY ORAL 08/17/18 09:00 09/12/18 08:59 08/18/18 09:38 Atorvastatin Calcium (Lipitor) 40 mg BEDTIME ORAL 08/16/18 21:00 09/12/18 20:59 08/17/18 20:01 Clopidogrel Bisulfate (Plavix) 75 mg DAILY ORAL 08/17/18 09:00 09/12/18 08:59 08/18/18 09:37 Dextrose (Dextrose 50%) 25 ml Q30M PRN IV Hypoglycemia 08/16/18 12:45 09/12/18 07:14 Dextrose (Dextrose 50%) 50 ml Q30M PRN IV Hypoglycemia 08/16/18 12:45 09/12/18 07:14 Duloxetine HCl (Cymbalta) 30 mg DAILY ORAL 08/17/18 09:00 09/12/18 08:59 08/18/18 09:37 Furosemide (Lasix) 20 mg DAILY ORAL 08/17/18 09:00 09/16/18 08:59 08/18/18 09:38 Gabapentin (Neurontin) 600 mg THREE TIMES A DAY ORAL 08/16/18 13:00 09/12/18 08:59 08/18/18 13:56 Heparin Sodium (Porcine) (Heparin 5000 units/ml) 5,000 units EVERY 12 HOURS SUBQ 08/16/18 21:00 09/12/18 08:59 08/16/18 20:22 Hydromorphone HCl (Dilaudid) 2 mg Q4H PRN IVP Severe Pain (Pain Scale 7-10) 08/16/18 15:15 08/21/18 23:14 08/18/18 14:49 Levetiracetam (Keppra) 500 mg Q12HR ORAL 08/16/18 21:00 09/12/18 08:59 08/18/18 09:38 Lorazepam (Ativan 2mg/ml 1ml) 0.5 mg Q4H PRN IV For Anxiety 08/16/18 13:00 08/20/18 12:59 Lorazepam (Ativan) 1 mg Q6H PRN ORAL For Anxiety 08/16/18 13:00 08/20/18 12:59 Methylprednisolone Sodium Succinate (Solu-MEDROL) 40 mg DAILY IV 08/17/18 09:00 09/12/18 11:59 08/18/18 09:37 Nitroglycerin (Ntg) 0.4 mg Q5M X 3 DOSES PRN SL Prn Chest Pain 08/16/18 12:45 09/12/18 07:14 Ondansetron HCl (Zofran) 4 mg Q6H PRN IVP Nausea & Vomiting 08/16/18 13:15 09/12/18 07:14 Promethazine HCl/ Codeine (Phenergan with Codeine) 5 ml Q6H PRN ORAL cough 08/16/18 13:00 09/12/18 12:59 Temazepam (Restoril) 15 mg HSPRN PRN ORAL Insomnia 08/16/18 20:00 08/20/18 19:59 Theophylline (George-Dur) 100 mg EVERY 12 HOURS ORAL 08/16/18 21:00 09/12/18 08:59 08/18/18 09:37 Trazodone HCl (Desyrel) 150 mg BEDTIME ORAL 08/18/18 21:00 09/17/18 20:59 Assessment/Plan Problem List: (1) Morbid obesity Assessment & Plan: morbidly obese with large pannus that now has worsening dependant lymphatic congestion/edema tender on exam no cellulitis noted has been losing weight but still very large would potentially benefit from reduction of pannus as he is a very motivated functional ambulatory young gentleman. would best be served by evaluation by plastic surgeon. spoke with Dr. Roberts who will try to arrange patient for outpatient follow up if possible no acute surgical intervention necessary at this time. edema and discomfort from pannus chronic currently stable and okay for discharge from surgical standpoint. thank you for this consultation. ICD Codes: E66.01 - Morbid (severe) obesity due to excess calories SNOMED: 730544476 (2) Abdominal pannus ICD Codes: E65 - Localized adiposity SNOMED: [id number] Gt Fernandez Aug 18, 2018 18:45
--- NOTE | 2018-08-18 19:17 | NUR ---
HAND-OFF: Report given to Moses HINOJOSA. Patient stable.
--- NOTE | 2018-08-18 19:18 | NUR ---
NURSE NOTES: Report taken from MICAELA Brday. Patient awake and oriented in bed. On room air, with order for NC if showing signs of distress. There is some blanchable redness beneath skin folds, continue to monitor. IV site c/d/i. Patient able to ambulate. Bed in lowest position, call light within reach.
[2018-08-18 20:00] VITALS: BP 134/84
[2018-08-18] MEDS ORDERED: TraZODone 100mg tab ORAL SCH (21:00)
[2018-08-18] MEDS: Atorvastatin 20mg tab ORAL SCH (21:36)
--- NOTE | 2018-08-18 22:01 | NUR ---
NURSE NOTES: returned call. Held 2100 heparin for platelet count of 140,000
--- NOTE | 2018-08-18 23:08 | Cardiology Progress Note ---
Assessment/Plan Assessment/Plan 1. Dyspnea likely due to acute exacerbation of COPD, echocardiography in Jun 2018 in this facility reveals normal LV systolic and diastolic function with LVEF at 55% and normal pulmonary artery pressure. 2. Morbid obesity with BMI of 52 and large pannus. 3. Hx of HTN, continue amlodipine and lasix. Creat is downtrending. 4. Hx of hyperlipidemia 5. Obesity hypoventilation syndrome. Subjective Subjective No cardiac events noted. Objective Last 24 Hour Vital Signs Date Time Temp Pulse Resp B/P (MAP) Pulse Ox O2 Delivery O2 Flow Rate FiO2 08/18/18 22:07 58 16 97 08/18/18 21:41 68 18 Nasal Cannula 3.0 32 08/18/18 21:41 Nasal Cannula 3.0 32 08/18/18 21:41 98 Nasal Cannula 3.0 32 08/18/18 21:00 Nasal Cannula 3.0 08/18/18 20:00 98.8 82 19 134/84 (101) 93 08/18/18 16:00 98.8 71 19 139/75 (96) 98 08/18/18 15:19 98.0 08/18/18 12:00 98.3 71 22 130/82 (98) 96 08/18/18 09:38 79 120/88 08/18/18 09:00 Nasal Cannula 3.0 08/18/18 08:28 66 20 99 Room Air 21 08/18/18 08:18 96 Nasal Cannula 3.0 32 08/18/18 08:18 56 20 Room Air 21 08/18/18 08:18 Nasal Cannula 3.0 32 08/18/18 08:18 56 20 96 Room Air 21 08/18/18 08:00 98.0 79 20 120/88 (99) 96 08/18/18 04:06 98.1 51 19 144/78 (100) 96 08/18/18 00:17 98.3 49 21 140/81 (100) 96 08/17/18 23:22 62 19 98 Nasal Cannula 3.0 32 08/17/18 23:10 Nasal Cannula 3.0 32 08/17/18 23:10 45 16 Nasal Cannula 3.0 32 08/17/18 23:10 45 16 98 08/17/18 23:10 45 16 98 Nasal Cannula 3.0 32 08/17/18 23:10 98 Nasal Cannula 3.0 32 Intake and Output 08/17/18 08/18/18 19:00 07:00 Intake Total 1334 ml 800 ml Balance 1334 ml 800 ml Intake Oral 1334 ml 800 ml # Voids 2 # Bowel Movements 3 2D Echo: LVEF 65%, Milkd LVH, Moderate SELAM, RVSP 25 mmHg Objective HEENT: atraumatic, normocephalic, PERRLA, EOMI. Neck: no carotid bruit, JVP <5 cm. Respiratory: Poor respiratory effort, B/L rhonchi Cardiovascular: Normal S1S2, regular rate, rhythm, no murmurs, gallops or rubs. Gastrointestinal: normal bowel sounds, non tender, soft, no guarding, no hernia Musculoskeletal: no edema, clubbing or cyanosis. Carlos Martins MD Aug 18, 2018 23:08
[2018-08-19] VITALS: BP 163/91
[2018-08-19 04:00] VITALS: BP 146/69
[2018-08-19 06:39] LABS: BASOPHILS % (AUTO) 0.3 % (0.0-2.0); EOSINOPHILS % (AUTO) 0.3 % (0.0-3.0); HEMATOCRIT 41.3 % (42.0-52.0); HEMOGLOBIN 13.8 G/DL (14.2-18.0); LYMPHOCYTES % (AUTO) 20.4 % (20.0-45.0); MEAN CORPUSCULAR VOLUME 100 FL (80-99); MONOCYTES % (AUTO) 4.8 % (1.0-10.0); NEUTROPHILS % (AUTO) 74.2 % (45.0-75.0); PLATELET COUNT 169 K/UL (150-450); RED BLOOD COUNT 4.13 M/UL (4.70-6.10); RED CELL DISTRIBUTION WIDTH 12.4 % (11.6-14.8); WHITE BLOOD COUNT 8.9 K/UL (4.8-10.8)
[2018-08-19 06:56] LABS: ANION GAP 3 mmol/L (5-15); BLOOD UREA NITROGEN 27 mg/dL (7-18); CALCIUM 8.8 MG/DL (8.5-10.1); CARBON DIOXIDE 34 MMOL/L (21-32); CHLORIDE 103 MMOL/L (98-107); CREATININE 1.1 MG/DL (0.55-1.30); POTASSIUM 4.3 MMOL/L (3.5-5.1); SODIUM 140 MMOL/L (136-145)
--- NOTE | 2018-08-19 07:20 | NUR ---
HAND-OFF: Report given to MICAELA Brady.
--- NOTE | 2018-08-19 07:40 | NUR ---
NURSE NOTES: Received report from Moses HINOJOSA. On rounds patient is awake alert and oriented x4, sitting up in bed eating breakfast. No s/s acute distress noted. Patient reporting no pain at this time. Seizure precautions maintained and bed rails padded. Side rails upx2, bed low and locked, call light in reach. Will continue to monitor.
[2018-08-19 08:00] VITALS: BP 142/91
--- NOTE | 2018-08-19 08:36 | General Progress Note ---
Assessment/Plan Assessment/Plan (1) Knee osteomyelits, right (2) Lumbar spondylosis (3) Morbid obesity (4) COPD (chronic obstructive pulmonary disease) Assessment/Plan We will reduce the Dilaudid to 1mg IV Q4H PRN severe pain start Morphine ER 15mg Q8H ATC hold for oversedation and [place] 10/325mg PO 1 tab Q6H PRN mod pain. D/w Dr. Magaña and he concurred. Subjective Date patient seen: Aug 19, 2018 Time patient seen: 07:30 - am Allergies: Coded Allergies: ASPIRIN (Verified Allergy, Unknown, 07/14/18) KETOROLAC (Verified Allergy, Unknown, 07/14/18) PENICILLINS (Verified Allergy, Unknown, 07/14/18) Subjective Constitutional: Denies: no symptoms, chills, diaphoresis, fever, malaise, weakness, other HEENT: Denies: no symptoms, eye pain, blurred vision, tearing, double vision, ear pain, ear discharge, nose pain, nose congestion, throat pain, throat swelling, mouth pain, mouth swelling, other Cardiovascular: Denies: no symptoms, chest pain, edema, irregular heart rate, lightheadedness, palpitations, syncope, other Respiratory: Reports: orthopnea, shortness of breath, SOB with excertion; Denies: cough, SOB at rest, sputum, stridor, wheezing, other Gastrointestinal/Abdominal: Denies: no symptoms, abdomen distended, abdominal pain, black stools, tarry stools, blood in stool, constipated, diarrhea, difficulty swallowing, nausea, poor appetite, poor fluid intake, rectal bleeding , vomiting, other Genitourinary: Denies: no symptoms, burning, discharge, frequency, flank pain, hematuria, incontinence, pain, urgency, other Neurologic/Psychiatric: Denies: no symptoms, anxiety, depressed, emotional problems, headache, numbness, paresthesia, pre-existing deficit, seizure, tingling, tremors, weakness, other Subjective Patient is in bed and continues to c/o pain using the dilaudid IV, I d/w him about transitioning from IV to tabs and he understands. Objective Last 24 Hour Vital Signs Date Time Temp Pulse Resp B/P (MAP) Pulse Ox O2 Delivery O2 Flow Rate FiO2 08/19/18 04:00 97.3 71 21 146/69 (94) 99 08/19/18 00:00 97.6 85 20 163/91 (115) 95 08/18/18 22:07 58 16 97 08/18/18 21:41 68 18 Nasal Cannula 3.0 32 08/18/18 21:41 Nasal Cannula 3.0 32 08/18/18 21:41 98 Nasal Cannula 3.0 32 08/18/18 21:00 Nasal Cannula 3.0 08/18/18 20:00 98.8 82 19 134/84 (101) 93 08/18/18 16:00 98.8 71 19 139/75 (96) 98 08/18/18 15:19 98.0 08/18/18 12:00 98.3 71 22 130/82 (98) 96 08/18/18 09:38 79 120/88 08/18/18 09:00 Nasal Cannula 3.0 Intake and Output 08/18/18 08/19/18 19:00 07:00 Intake Total 900 ml Balance 900 ml Intake Oral 900 ml # Voids 3 Laboratory Tests 08/19/18 06:28: White Blood Count 8.9, Red Blood Count 4.13L, Hemoglobin 13.8L, Hematocrit 41.3L , Mean Corpuscular Volume 100H, Mean Corpuscular Hemoglobin 33.5H, Mean Corpuscular Hemoglobin Concent 33.5, Red Cell Distribution Width 12.4, Platelet Count 169, Mean Platelet Volume 5.8L, Neutrophils (%) (Auto) 74.2, Lymphocytes ( %) (Auto) 20.4, Monocytes (%) (Auto) 4.8, Eosinophils (%) (Auto) 0.3, Basophils (%) (Auto) 0.3, Sodium Level 140, Potassium Level 4.3, Chloride Level 103, Carbon Dioxide Level 34H, Anion Gap 3L, Blood Urea Nitrogen 27H, Creatinine 1.1 , Estimat Glomerular Filtration Rate > 60, Glucose Level 116H, Calcium Level 8.8 Height (Feet): 6 Height (Inches): 10.00 Weight (Pounds): 385 Objective General Appearance: WD/WN EENT: PERRL/EOMI Neck: non-tender Cardiovascular: normal rate Respiratory/Chest: lungs clear, decreased breath sounds Abdomen: non tender, soft Edema: no edema noted Arm (L), no edema noted Arm (R); 2+ Leg (L), 2+ Leg (R), 2+ Pedal (L), 2+ Pedal (R) Neurologic: cook vacuum kettle II-XII grossly normal, alert, oriented x 3 Eliezer Nicole Aug 19, 2018 08:35
[2018-08-19] MEDS ORDERED: HYDROcodone/Acetamin 10/325 tab ORAL PRN (08:45)
[2018-08-19] MEDS ORDERED: HYDROmorphone 1mg/ml Carpuject IVP PRN (09:00)
[2018-08-19] MEDS: Heparin 5000 units/ml inj SUBQ SCH (09:36)
[2018-08-19] MEDS: DULoxetine 30mg cap ORAL SCH (09:37)
[2018-08-19] MEDS: Theophylline ER 100mg ORAL SCH (09:38)
[2018-08-19] MEDS: MS Contin 15mg tab ORAL SCH ×2 (09:39→17:00)
[2018-08-19] MEDS: Solu-MEDROL 125mg Inj IV SCH (09:39)
[2018-08-19] MEDS ORDERED: Albuterol/Ipratropium 3ml neb HHN PRN (11:15)
[2018-08-19 12:00] VITALS: BP 140/75
--- NOTE | 2018-08-19 12:20 | Pulmonology Progress Note ---
Assessment/Plan Problems: (1) ADALBERTO (obstructive sleep apnea) (2) COPD (chronic obstructive pulmonary disease) (3) Seizures (4) Peripheral edema (5) Morbid obesity Assessment/Plan still lots of complains about swelling of lower abdomen pt wants dilaudid for his knee pain respiratory condition improving titrate fio2 to sat of 92% dvt prophylaxis. symptomatic treatment bipap prn Subjective ROS Limited/Unobtainable: No Constitutional: Reports: no symptoms HEENT: Repors: no symptoms Respiratory: Reports: no symptoms Allergies: Coded Allergies: ASPIRIN (Verified Allergy, Unknown, 07/14/18) KETOROLAC (Verified Allergy, Unknown, 07/14/18) PENICILLINS (Verified Allergy, Unknown, 07/14/18) Objective Last 24 Hour Vital Signs Date Time Temp Pulse Resp B/P (MAP) Pulse Ox O2 Delivery O2 Flow Rate FiO2 08/19/18 11:21 80 18 98 Nasal Cannula 2.0 28 08/19/18 10:09 97.5 08/19/18 09:38 89 142/91 08/19/18 09:00 Nasal Cannula 3.0 08/19/18 08:56 97.5 08/19/18 08:00 97.5 89 22 142/91 (108) 92 08/19/18 04:00 97.3 71 21 146/69 (94) 99 08/19/18 00:00 97.6 85 20 163/91 (115) 95 08/18/18 22:07 58 16 97 08/18/18 21:41 68 18 Nasal Cannula 3.0 32 08/18/18 21:41 Nasal Cannula 3.0 32 08/18/18 21:41 98 Nasal Cannula 3.0 32 08/18/18 21:00 Nasal Cannula 3.0 08/18/18 20:00 98.8 82 19 134/84 (101) 93 08/18/18 16:00 98.8 71 19 139/75 (96) 98 Intake and Output 08/18/18 08/19/18 19:00 07:00 Intake Total 900 ml Balance 900 ml Intake Oral 900 ml # Voids 3 General Appearance: WD/WN HEENT: normocephalic, atraumatic Respiratory/Chest: chest wall non-tender, lungs clear Cardiovascular: normal peripheral pulses, normal rate Abdomen: normal bowel sounds, soft, non tender Genitourinary: normal external genitalia Extremities: no clubbing Skin: no rash Neurologic/Psychiatric: normal mood/affect Laboratory Tests 08/19/18 06:28: White Blood Count 8.9, Red Blood Count 4.13L, Hemoglobin 13.8L, Hematocrit 41.3L , Mean Corpuscular Volume 100H, Mean Corpuscular Hemoglobin 33.5H, Mean Corpuscular Hemoglobin Concent 33.5, Red Cell Distribution Width 12.4, Platelet Count 169, Mean Platelet Volume 5.8L, Neutrophils (%) (Auto) 74.2, Lymphocytes ( %) (Auto) 20.4, Monocytes (%) (Auto) 4.8, Eosinophils (%) (Auto) 0.3, Basophils (%) (Auto) 0.3, Sodium Level 140, Potassium Level 4.3, Chloride Level 103, Carbon Dioxide Level 34H, Anion Gap 3L, Blood Urea Nitrogen 27H, Creatinine 1.1 , Estimat Glomerular Filtration Rate > 60, Glucose Level 116H, Calcium Level 8.8 Current Medications Medications (Trade) Dose Ordered Sig/Luis Route PRN Reason Start Time Stop Time Status Last Admin Dose Admin Acetaminophen/ Hydrocodone Bitart ([place] 10/325) 1 tab Q6H PRN ORAL Moderate Pain (Pain Scale 4-6) 08/19/18 08:45 08/26/18 08:44 Albuterol/ Ipratropium (Albuterol/ Ipratropium) 3 ml Q4H PRN HHN DYSPNEA 08/19/18 11:15 08/24/18 11:14 08/19/18 11:21 Amlodipine Besylate (Norvasc) 5 mg DAILY ORAL 08/17/18 09:00 09/12/18 08:59 08/19/18 09:38 Atorvastatin Calcium (Lipitor) 40 mg BEDTIME ORAL 08/16/18 21:00 09/12/18 20:59 08/18/18 21:36 Clopidogrel Bisulfate (Plavix) 75 mg DAILY ORAL 08/17/18 09:00 09/12/18 08:59 08/19/18 09:38 Dextrose (Dextrose 50%) 25 ml Q30M PRN IV Hypoglycemia 08/16/18 12:45 09/12/18 07:14 Dextrose (Dextrose 50%) 50 ml Q30M PRN IV Hypoglycemia 08/16/18 12:45 09/12/18 07:14 Duloxetine HCl (Cymbalta) 30 mg DAILY ORAL 08/17/18 09:00 09/12/18 08:59 08/19/18 09:37 Furosemide (Lasix) 20 mg DAILY ORAL 08/17/18 09:00 09/16/18 08:59 08/19/18 09:38 Gabapentin (Neurontin) 600 mg THREE TIMES A DAY ORAL 08/16/18 13:00 09/12/18 08:59 08/19/18 09:39 Heparin Sodium (Porcine) (Heparin 5000 units/ml) 5,000 units EVERY 12 HOURS SUBQ 08/16/18 21:00 09/12/18 08:59 08/19/18 09:36 Hydromorphone HCl (Dilaudid) 1 mg Q4H PRN IVP Severe Pain (Pain Scale 7-10) 08/19/18 09:00 08/26/18 08:59 Levetiracetam (Keppra) 500 mg Q12HR ORAL 08/16/18 21:00 09/12/18 08:59 08/19/18 09:38 Lorazepam (Ativan 2mg/ml 1ml) 0.5 mg Q4H PRN IV For Anxiety 08/16/18 13:00 08/20/18 12:59 Lorazepam (Ativan) 1 mg Q6H PRN ORAL For Anxiety 08/16/18 13:00 08/20/18 12:59 Methylprednisolone Sodium Succinate (Solu-MEDROL) 40 mg DAILY IV 08/17/18 09:00 09/12/18 11:59 08/19/18 09:39 Morphine Sulfate (MS Contin) 15 mg Q8H ORAL 08/19/18 09:00 08/26/18 08:59 08/19/18 09:39 Nitroglycerin (Ntg) 0.4 mg Q5M X 3 DOSES PRN SL Prn Chest Pain 08/16/18 12:45 09/12/18 07:14 Ondansetron HCl (Zofran) 4 mg Q6H PRN IVP Nausea & Vomiting 08/16/18 13:15 09/12/18 07:14 Promethazine HCl/ Codeine (Phenergan with Codeine) 5 ml Q6H PRN ORAL cough 08/16/18 13:00 09/12/18 12:59 Temazepam (Restoril) 15 mg HSPRN PRN ORAL Insomnia 08/16/18 20:00 08/20/18 19:59 Theophylline (George-Dur) 100 mg EVERY 12 HOURS ORAL 08/16/18 21:00 09/12/18 08:59 08/19/18 09:38 Trazodone HCl (Desyrel) 150 mg BEDTIME ORAL 08/18/18 21:00 09/17/18 20:59 08/18/18 21:36 Bill Dixon MD Aug 19, 2018 12:20
--- NOTE | 2018-08-19 12:40 | NUR ---
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 97.5 HR 80 RR 18 B/P 142/91 3L NC O2 SAT 98% IS: SOLU MEDROL IV LASIX PO HEPARIN SUBC NIRAV-DUR PO MED/SURG STATUS
--- NOTE | 2018-08-19 12:57 | NUR ---
*-* DISCHARGE PLANNING*-* PATIENT HAS BEEN REFERRED BACK TO: [facility] P:[phone] F:[phone] Addendum: 08/19/18 at 1417 by YESSICA OAKES CM SPOKE TO SADA AT [facility] HE HAS GIVEN US ROOM# 109-B
--- NOTE | 2018-08-19 14:35 | General Progress Note ---
Assessment/Plan Problem List: (1) Morbid obesity ICD Codes: E66.01 - Morbid (severe) obesity due to excess calories SNOMED: 203254508 (2) Peripheral edema ICD Codes: R60.9 - Edema, unspecified SNOMED: 901149150 (3) COPD (chronic obstructive pulmonary disease) ICD Codes: J44.9 - Chronic obstructive pulmonary disease, unspecified SNOMED: 61006908 Status: stable, progressing Assessment/Plan o2 pulm tx taper steroids pt diet cbc bmp am dc if clear Subjective Constitutional: Reports: weakness Allergies: Coded Allergies: ASPIRIN (Verified Allergy, Unknown, 07/14/18) KETOROLAC (Verified Allergy, Unknown, 07/14/18) PENICILLINS (Verified Allergy, Unknown, 07/14/18) All Systems: reviewed and negative except above Subjective sleepy calm Objective Last 24 Hour Vital Signs Date Time Temp Pulse Resp B/P (MAP) Pulse Ox O2 Delivery O2 Flow Rate FiO2 08/19/18 13:46 98.0 08/19/18 12:00 98.0 87 20 140/75 (96) 96 08/19/18 11:21 80 18 98 Nasal Cannula 2.0 28 08/19/18 10:09 97.5 08/19/18 09:38 89 142/91 08/19/18 09:00 Nasal Cannula 3.0 08/19/18 08:56 97.5 08/19/18 08:00 97.5 89 22 142/91 (108) 92 08/19/18 04:00 97.3 71 21 146/69 (94) 99 08/19/18 00:00 97.6 85 20 163/91 (115) 95 08/18/18 22:07 58 16 97 08/18/18 21:41 68 18 Nasal Cannula 3.0 32 08/18/18 21:41 Nasal Cannula 3.0 32 08/18/18 21:41 98 Nasal Cannula 3.0 32 08/18/18 21:00 Nasal Cannula 3.0 08/18/18 20:00 98.8 82 19 134/84 (101) 93 08/18/18 16:00 98.8 71 19 139/75 (96) 98 Intake and Output 08/18/18 08/19/18 19:00 07:00 Intake Total 900 ml Balance 900 ml Intake Oral 900 ml # Voids 3 Laboratory Tests 08/19/18 06:28: White Blood Count 8.9, Red Blood Count 4.13L, Hemoglobin 13.8L, Hematocrit 41.3L , Mean Corpuscular Volume 100H, Mean Corpuscular Hemoglobin 33.5H, Mean Corpuscular Hemoglobin Concent 33.5, Red Cell Distribution Width 12.4, Platelet Count 169, Mean Platelet Volume 5.8L, Neutrophils (%) (Auto) 74.2, Lymphocytes ( %) (Auto) 20.4, Monocytes (%) (Auto) 4.8, Eosinophils (%) (Auto) 0.3, Basophils (%) (Auto) 0.3, Sodium Level 140, Potassium Level 4.3, Chloride Level 103, Carbon Dioxide Level 34H, Anion Gap 3L, Blood Urea Nitrogen 27H, Creatinine 1.1 , Estimat Glomerular Filtration Rate > 60, Glucose Level 116H, Calcium Level 8.8 Height (Feet): 6 Height (Inches): 10.00 Weight (Pounds): 385 General Appearance: alert EENT: normal ENT inspection Neck: normal alignment Cardiovascular: normal peripheral pulses, normal rate, regular rhythm Respiratory/Chest: chest wall non-tender, lungs clear, normal breath sounds Abdomen: normal bowel sounds, non tender, soft Extremities: normal inspection Edema: 1+ Arm (L), 1+ Arm (R), 1+ Leg (L), 1+ Leg (R), 1+ Pedal (L), 1+ Pedal ( R), 1+ Generalized Edema: trace edema Neurologic: responsive, motor weakness Skin: normal pigmentation, warm/dry Ernesto Nicole DO Aug 19, 2018 14:35
--- NOTE | 2018-08-19 15:18 | Surgery Progress Note ---
Surgery Progress Note Subjective Additional Comments no acute events. states knees hurt and wants more pain meds. requesting Dilaudid to be increased in dosage. Objective Last 24 Hour Vital Signs Date Time Temp Pulse Resp B/P (MAP) Pulse Ox O2 Delivery O2 Flow Rate FiO2 08/19/18 13:46 98.0 08/19/18 12:00 98.0 87 20 140/75 (96) 96 08/19/18 11:21 80 18 98 Nasal Cannula 2.0 28 08/19/18 10:09 97.5 08/19/18 09:38 89 142/91 08/19/18 09:00 Nasal Cannula 3.0 08/19/18 08:56 97.5 08/19/18 08:00 97.5 89 22 142/91 (108) 92 08/19/18 04:00 97.3 71 21 146/69 (94) 99 08/19/18 00:00 97.6 85 20 163/91 (115) 95 08/18/18 22:07 58 16 97 08/18/18 21:41 68 18 Nasal Cannula 3.0 32 08/18/18 21:41 Nasal Cannula 3.0 32 08/18/18 21:41 98 Nasal Cannula 3.0 32 08/18/18 21:00 Nasal Cannula 3.0 08/18/18 20:00 98.8 82 19 134/84 (101) 93 08/18/18 16:00 98.8 71 19 139/75 (96) 98 I&O Intake and Output 08/18/18 08/19/18 19:00 07:00 Intake Total 900 ml Balance 900 ml Intake Oral 900 ml # Voids 3 Dressing: other Wound: other Drains: none Cardiovascular: RSR Respiratory: clear Abdomen: soft, tenderness, present bowel sounds, other, non-distended Extremities: edema, no cyanosis Laboratory Tests Test 08/19/18 06:28 White Blood Count 8.9 K/UL (4.8-10.8) Red Blood Count 4.13 M/UL (4.70-6.10) L Hemoglobin 13.8 G/DL (14.2-18.0) L Hematocrit 41.3 % (42.0-52.0) L Mean Corpuscular Volume 100 FL (80-99) H Mean Corpuscular Hemoglobin 33.5 PG (27.0-31.0) H Mean Corpuscular Hemoglobin Concent 33.5 G/DL (32.0-36.0) Red Cell Distribution Width 12.4 % (11.6-14.8) Platelet Count 169 K/UL (150-450) Mean Platelet Volume 5.8 FL (6.5-10.1) L Neutrophils (%) (Auto) 74.2 % (45.0-75.0) Lymphocytes (%) (Auto) 20.4 % (20.0-45.0) Monocytes (%) (Auto) 4.8 % (1.0-10.0) Eosinophils (%) (Auto) 0.3 % (0.0-3.0) Basophils (%) (Auto) 0.3 % (0.0-2.0) Sodium Level 140 MMOL/L (136-145) Potassium Level 4.3 MMOL/L (3.5-5.1) Chloride Level 103 MMOL/L (98-107) Carbon Dioxide Level 34 MMOL/L (21-32) H Anion Gap 3 mmol/L (5-15) L Blood Urea Nitrogen 27 mg/dL (7-18) H Creatinine 1.1 MG/DL (0.55-1.30) Estimat Glomerular Filtration Rate > 60 mL/min (>60) Glucose Level 116 MG/DL (74-106) H Calcium Level 8.8 MG/DL (8.5-10.1) Plan Problems: (1) Morbid obesity Assessment & Plan: morbidly obese with large pannus that now has worsening dependant lymphatic congestion/edema tender on exam no cellulitis noted has been losing weight but still very large would potentially benefit from reduction of pannus as he is a very motivated functional ambulatory young gentleman. would best be served by evaluation by plastic surgeon. spoke with Dr. Roberts who will try to arrange patient for outpatient follow up if possible no acute surgical intervention necessary at this time. edema and discomfort from pannus chronic currently stable and okay for discharge from surgical standpoint. thank you for this consultation. (2) Abdominal pannus Gt Fernandez Aug 19, 2018 15:18
--- NOTE | 2018-08-19 15:31 | NUR ---
*-* DISCHARGE PLANNED*-* PATIENT DISCHARGED TO: [facility] ROOM# 109-B SKILLED T:[phone] OR NURSE TO NURSE REPORT [facility] HAS BEEN ARRANGED FOR PICK AT 1730 S/[address] [id number] Addendum: 08/19/18 at 1640 by YESSICA OAKES CM [facility] HAS BEEN ARRANGED FOR PICK AT 1830 [address] [id number]
[2018-08-19 16:00] VITALS: BP 127/88
--- NOTE | 2018-08-19 16:37 | NUR ---
NURSE NOTES:SPOKE TO SUZY(CASE MNGR.) RE:PER CONVERSATION PATIENT IS CLEARED FOR DISCHARGE TODAY TO [facility].PRIMARY NURSE(SHUBHAM HINOJOSA)INFORMED.
--- NOTE | 2018-08-19 17:30 | Progress Note ---
DATE: 08/19/2018 SUBJECTIVE: This is a 52-year-old male patient with COPD. This patient does have some confusion, disorganized thought process. He has got some mood lability, worsened by stress of his medical illness. That is why he does require acute psychiatric inpatient treatment. This patient does have some confusion, some disorganized thought process, and mood lability. Diagnosis is major depressive disorder, but he has COPD and has increased mood lability. That is why, his attending has requested daily psychiatric consultation. MENTAL STATUS EXAMINATION: This is a 52-year-old male. Appearance is disheveled. Attitude irritable and agitated. Affect, guarded and restricted. Intellect poor. Mood depressed and anxious. Motor activity, psychomotor agitation. Attention span is poor. Orientation x2. Speech is low volume and slurred. Thought process, disorganized. Illogical thought content. Denies auditory or visual hallucinations or delusions. Insight and judgment is poor. No suicidal or homicidal ideations. DIAGNOSIS: Major depressive disorder, mild, recurrent, without psychotic features. PLAN: Treat him with trazodone 150 mg at bedtime, Neurontin 300 mg three times a day, Cymbalta 30 mg daily, Ativan 1 mg every 6 hours p.r.n. anxiety and agitation. Provided him with 20 minutes of supportive psychotherapy. Chart reviewed and discussed with staff. He was seen by . Laney Mcghee M.D. DR: GEENA JOB#: [id number] CC:
--- NOTE | 2018-08-19 17:43 | NUR ---
NURSE NOTES: Patient is stating he does not want to be discharged today. Patient states that Dr. Nicole told him he can be discharged tomorrow. Contacted Dr. Nicole and reported this to MD, no response from MD, awaiting response. AMADOR Blood stated she will send someone to speak with the patient about discharge. No one has come to speak to the patient yet. Will continue to monitor.
[2018-08-19] MEDS ORDERED: THEOPHYLLINE A100 MG ORAL (18:38)
--- NOTE | 2018-08-19 18:45 | NUR ---
NURSE NOTES: Caitie ENGLISH spoke with patient at the bedside. Reports patient is now agreeing to return to facility. Called [facility] and gave report to Ernesto Perez RN.
--- NOTE | 2018-08-19 19:53 | NUR ---
NURSE NOTES: Patient agreed to return to facility, patient discharged at 1946. Transferred safely onto [facility] by EMS crew. IV removed intact. Skin intact except redness/irritation under abdominal folds and bilateral groin folds, redness is blanchable. Belongings sent with patient. No s/s acute distress.
--- NOTE | 2018-08-20 11:31 | Discharge Summary ---
Discharge Summary Discharge Summary _ DATE OF ADMISSION: 08/13/2018 DATE OF DISCHARGE: 08/19/2018 DISCHARGED BY: Dr. Ernesto Nicole CONSULTANTS: Dr. Laney Jackman [facility] HOSPITAL COURSE: Patient is a 52-year-old male, from [facility], presented to ED for increased shortness of breath and chest pain. Pain was described to be substernal and intermittent in duration. There was no radiation. There was no loss of consciousness. [facility] and [facility] in [facility] however he had shortness of breath and chest discomfort. He was rerouted to [facility] ER. Medical history significant for COPD, CHF, coronary artery disease status post CABG, hyperlipidemia, depression and seizure disorder. On evaluation at ED, brought in by ambulance on a nonrebreather mask. He was noted to be somewhat more somnolent. Pressure was elevated to 169/89, pulse rate 88, he was saturating 99% on nonrebreather mask. Blood work did not show any leukocytosis abdomen hematocrit were stable. Troponin was negative. ProBNP was 235. EKG was in normal sinus rhythm with no acute changes. Chest x- ray showed prominent vascularity, suspect CHF. Polymer Chemist and stock broker were consulted. He was given respiratory treatment. He was given George-Dur 200 mg twice daily. He was given anti- tussive. He was started on IV steroids. Patient has history of morbid obesity and obstructive sleep apnea. He was ordered BiPAP nightly, however patient refused. He was continued on amlodipine and Lasix. He had an echocardiogram done on June 2018 that showed normal LV systolic and diastolic function. LVEF 55%. He had normal pulmonary artery pressure. He was given Plavix. He was continued on atorvastatin. Patient had chronic anxiety and depression. Psychiatric evaluation was done. He was diagnosed with major depressive disorder, severe, recurrent without psychotic features. He was given Cymbalta,Neurontin and Trazodone. He was given Ativan as needed. He complained of pain on the knees and lower back. wardrobe specialist was consulted. He was given IV Dilaudid. Patient was noted to have large pannus inflammation. Surgical consultation was obtained. Patient has worsening dependent lymph congestion/edema of the pannus. He was recommended pannus reduction. He was recommended outpatient follow-up with plastic surgeon. IV steroids were tapered. He was tapered off of IV Dilaudid and was switched to oral narcotics. He was eventually cleared [facility]. FINAL DIAGNOSES: Acute COPD exacerbation Morbid obesity Obstructive sleep apnea Dyspnea from COPD exacerbation Hypertension Hyperlipidemia Major depressive disorder, severe, recurrent without psychotic features Anxiety Lumbar spondylosis Knee osteoarthritis DISPOSITION: Patient was discharged to a SNF. DISCHARGE MEDICATIONS: Refer to Discharge Medication List. I have been assigned to complete a discharge summary on this account, I was not involved with the patient's management. Melany Lantigua NP Aug 20, 2018 11:31
== END 2018-08-19 19:40 | DRG 191 ==
LOC: EDUNIT# 23:21 → EDBD 23:21 → EMR 23:59 → 2E 08-13 01:12 → EDBEDREQ 08-13 02:42 → 2E 08-13 04:35 → 3E 08-16 12:20
DX: J44.1 Chronic obstructive pulmonary disease with (acute) exacerbation (principal); Z68.43 Body mass index [BMI] 50.0-59.9, adult; F33.2 Major depressive disorder, recurrent severe without psychotic features; E66.2 Morbid (severe) obesity with alveolar hypoventilation; F32.9 Major depressive disorder, single episode, unspecified; I11.0 Hypertensive heart disease with heart failure; I25.10 Atherosclerotic heart disease of native coronary artery without angina pectoris; Z88.6 Allergy status to analgesic agent; Z88.0 Allergy status to penicillin; Z88.8 Allergy status to other drugs, medicaments and biological substances; E78.5 Hyperlipidemia, unspecified; F41.9 Anxiety disorder, unspecified; G47.33 Obstructive sleep apnea (adult) (pediatric); M47.896 Other spondylosis, lumbar region; F17.200 Nicotine dependence, unspecified, uncomplicated; G40.909 Epilepsy, unspecified, not intractable, without status epilepticus; M17.31 Unilateral post-traumatic osteoarthritis, right knee; I50.810 Right heart failure, unspecified; E65 Localized adiposity
CPT/HCPCS: 36415; 71045; 80048; 80053; 80299; 82550; 82553; 83880; 84484; 85025; 86710; 87081; 93005; 93970; 94640; 94660; 94664; 94760; 96374; 96375; 97803; 99285; J2405; J7620

== ENCOUNTER 2018-08-22 17:30 | Inpatient (IN) | payer MEDICARE, MEDICAID ==
[~2018-08-22] VITALS: Ht 180.3 cm; Wt 224.5 kg
[2018-08-22 17:30] VITALS: BP 105/52
[~2018-08-22 17:30] MED LIST changes: +ALBUTEROL2.5 MG/3 M INH; +CLOPIDOGREL75 MG ORAL; +DILTIAZEM HCL120 MG PO; -DUONEB 0.5-3(2.53 ML HHN; +DUONEB 0.5-3(2.53 ML NEBULIZ062; +ISORDIL30 MG PO; +KEPPRA500 M3 ORAL; +LIPITOR80 MG ORAL; +MEDROL DOSEPAK4 MG ORAL; +MORPHINE IR15 MG ORAL; +NITROGLYCERIN2.5 M1 SCONJUNC; +POLYETHYLENE GL17 GM ORAL; +SPIRIVA INHALE1 PUF1 INH; +THEOPHYLLI80 MG/153 PO
--- NOTE | 2018-08-22 17:30 | NUR ---
ED Nurse Note: PT BROUGHT IN BY R[facility] FROM [facility]. AOX4. PT C/O CHEST PAIN, 10/10 X 30 MINUTES AGO RADIATING DOWN LEFT ARM. PT ALSO C/O LIGHTHEADEDNESS. BP: 105/52 WITH HR: 91. NO SIGNS OF RESPIRATORY DISTRESS OR RETRACTIONS ON 2L O2 VIA NASAL CANNULA.
--- NOTE | 2018-08-22 17:55 | NUR ---
ED Nurse Note: XRAY AT BEDSIDE.
[2018-08-22] MEDS ORDERED: HYDROmorphone 1mg/ml Carpuject IVP ONE ×2 (18:00→19:45)
[2018-08-22] MEDS ORDERED: Solu-MEDROL 125mg Inj IVP ONE (18:00)
--- NOTE | 2018-08-22 18:00 | NUR ---
ED Nurse Note: RT AT BEDSIDE FOR BREATHING TX
[2018-08-22 18:02] LABS: BASOPHILS % (AUTO) 1.1 % (0.0-2.0); EOSINOPHILS % (AUTO) 1.1 % (0.0-3.0); HEMATOCRIT 41.5 % (42.0-52.0); HEMOGLOBIN 14.4 G/DL (14.2-18.0); LYMPHOCYTES % (AUTO) 28.7 % (20.0-45.0); MEAN CORPUSCULAR VOLUME 99 FL (80-99); MONOCYTES % (AUTO) 3.5 % (1.0-10.0); NEUTROPHILS % (AUTO) 65.5 % (45.0-75.0); PLATELET COUNT 157 K/UL (150-450); RED BLOOD COUNT 4.19 M/UL (4.70-6.10); RED CELL DISTRIBUTION WIDTH 12.6 % (11.6-14.8)
[2018-08-22 18:07] VITALS: BP 121/67
--- NOTE | 2018-08-22 18:09 | Diagnostic Imaging Report ---
EXAM: XR Chest, 1 View CLINICAL HISTORY: CP TECHNIQUE: Frontal view of the chest. COMPARISON: 08/17/2018 FINDINGS: Lungs: Low lung volumes with bronchovascular crowding. No focal consolidation, pleural effusion, or pneumothorax. Pleural space: See above. Heart: Unremarkable. No cardiomegaly. Mediastinum: Unremarkable. Bones/joints: Unremarkable. IMPRESSION: 1. Low lung volumes with bronchovascular crowding. 2. Otherwise no acute cardiopulmonary disease. 3. Further characterize these findings, recommend formal frontal and lateral chest radiographs if the patient can tolerate.
[2018-08-22] MEDS: Ipratropium 0.02% Inh Soln 2.5ml UD HHN SCH ×3 (18:11→19:04)
[2018-08-22] MEDS: Albuterol ud Inhalation HHN SCH ×3 (18:11→19:05)
[2018-08-22 18:16] LABS: ANION GAP 9 mmol/L (5-15); BLOOD UREA NITROGEN 34 mg/dL (7-18); CALCIUM 8.8 MG/DL (8.5-10.1); CARBON DIOXIDE 28 MMOL/L (21-32); CHLORIDE 104 MMOL/L (98-107); CREATININE 1.1 MG/DL (0.55-1.30); POTASSIUM 4.3 MMOL/L (3.5-5.1); SODIUM 140 MMOL/L (136-145)
[2018-08-22 18:32] LABS: ALANINE AMINOTRANSFERASE 37 U/L (12-78); ALBUMIN/GLOBULIN RATIO 0.9 (1.0-2.7); ALKALINE PHOSPHATASE 68 U/L (46-116); ASPARTATE AMINO TRANSFERASE 21 U/L (15-37); CKMB 0.8 NG/ML (0.0-3.6); CREATINE KINASE 82 U/L (26-308)
[2018-08-22] MEDS ORDERED: THEO-24300 MG PO (18:49)
--- NOTE | 2018-08-22 19:05 | NUR ---
ED Nurse Note: REPORT GIVEN TO MICAELA BOLDEN
--- NOTE | 2018-08-22 19:10 | NUR ---
ED Nurse Note: Received report from Deon Abebe RN. Pt in bed receiving breathing treatment. No distress noted. Pt asking for pain Rx; will ask MD for possible order. Day shift RN endorsed admit to tele unit when room received. Awaiting rm assignment. Will continue to monitor.
[2018-08-22] MEDS ORDERED: dilTIAZem HCl 25mg/5ml Inj IV PRN (19:45)
[2018-08-22] MEDS ORDERED: HYDROcodone/Acetamin 10/325 tab ORAL PRN (19:45)
[2018-08-22] MEDS ORDERED: Nitroglycerin Subl 0.4mg tab SL PRN (19:45)
[2018-08-22] MEDS ORDERED: Enalaprilat 2.5mg/2ml Inj IV PRN (19:45)
[2018-08-22] MEDS ORDERED: Miralax 17gm pkt ORAL PRN (19:45)
--- NOTE | 2018-08-22 19:59 | Emergency Room Report ---
History of Present Illness General Chief Complaint: Chest Pain Source: Patient, Medical Record Present Illness HPI 42-year-old male presents ED for evaluation of chest pain. Brought in by EMS from shelter facility. Chest pain started 30 minutes ago at rest. Left -sided, pressure, 8 out of 10, radiating down the left arm. Also no shortness of breath. History of COPD. Was given nitroglycerin by EMS but states it did not help. States he was discharged from the hospital 3 days ago but states he never got better. Denies fevers or chills. Denies cough. No other aggravating relieving factors. Denies any other associated symptoms Allergies: Coded Allergies: ASPIRIN (Verified Allergy, Unknown, 07/14/18) KETOROLAC (Verified Allergy, Unknown, 07/14/18) PENICILLINS (Verified Allergy, Unknown, 07/14/18) Patient History Past Medical History: HTN, CHF, COPD, seizures Pertinent Family History: none Social History: Denies: smoking, alcohol use, drug use Immunizations: UTD Reviewed Nursing Documentation: PMH: Agreed; PSxH: Agreed Nursing Documentation-PMH Hx Cardiac Problems: Yes - CHF Hx Hypertension: Yes Hx COPD: Yes Hx Cancer: No Hx Gastrointestinal Problems: Yes Hx Neurological Problems: Yes Hx Seizures: Yes - EPILEPSY Review of Systems All Other Systems: negative except mentioned in HPI Physical Exam Vital Signs Date Time Temp Pulse Resp B/P (MAP) Pulse Ox O2 Delivery O2 Flow Rate FiO2 08/22/18 17:19 98.1 62 18 142/78 94 Nasal Cannula 08/22/18 17:30 2.0 08/22/18 18:13 28 Sp02 EP Interpretation: reviewed, normal General Appearance: alert, GCS 15, non-toxic, mild distress, obese Head: normocephalic, atraumatic Eyes: bilateral eye normal inspection, bilateral eye PERRL ENT: hearing grossly normal, normal pharynx, no angioedema, normal voice Neck: full range of motion, supple/symm/no masses Respiratory: chest non-tender, decreased breath sounds, speaking full sentences , wheezing Cardiovascular #1: regular rate, rhythm, no edema Cardiovascular #2: 2+ carotid (R), 2+ carotid (L), 2+ radial (R), 2+ radial (L) , 2+ dorsalis pedis (R), 2+ dorsalis pedis (L) Gastrointestinal: normal bowel sounds, non tender, soft, non-distended, no guarding, no rebound Rectal: deferred Genitourinary: normal inspection, no CVA tenderness Musculoskeletal: back normal, gait/station normal, normal range of motion, non- tender Neurologic: alert, oriented x3, responsive, motor strength/tone normal, sensory intact, speech normal Psychiatric: judgement/insight normal, memory normal, mood/affect normal, no suicidal/homicidal ideation Reflexes: 3+ bicep (R), 3+ bicep (L), 3+ tricep (R), 3+ tricep (L), 3+ knee (R) , 3+ knee (L) Skin: normal color, no rash, warm/dry, well hydrated Lymphatic: no adenopathy Medical Decision Making Diagnostic Impression: Primary Impression: COPD (chronic obstructive pulmonary disease) Qualified Codes: J44.9 - Chronic obstructive pulmonary disease, unspecified Additional Impression: ACS (acute coronary syndrome) ER Course Hospital Course 52-year-old M presenting to ED with SOB and CP. h/o COPD Differential diagnoses include: Pneumonia, CHF exacerbation, pneumothorax, fluid overload Clinical course Patient placed on stretcher. On flour tester with stable vitals. After initial history and physical, I ordered nebulizer treatments. I ordered labs, IV fluids, EKG, chest x-ray, blood cultures, UA. Labs - no leukocytosis noted, hemoglobin/hematocrit stable, electrolytes okay, lactate okay, troponins 0.020 CXR - no infiltrates EKG - NSR, no acute ischemic changes, some PVCS, interpreted by me Patient continues to feel short of breath. Refuses ABG. Patient will require admission. Patient initially given 1 mg Dilaudid for pain. Is requesting additional doses of medication. Case discussed with Dr. Nicole and he agreed to the patient to his service for further care and support I feel this is a highly complex case requiring extensive working including EKG/ Rhythm strip, Xray/CT/US, Blood/urine lab work, repeat exams while in ED, and administration of strong opiates/narcotics for pain control, admission to hospital or close patient follow up. Diagnosis - COPD exacerbation, ACS Patient admitted to telemetry in serious condition Labs Test 08/22/18 17:12 White Blood Count 9.0 K/UL (4.8-10.8) Red Blood Count 4.19 M/UL (4.70-6.10) Hemoglobin 14.4 G/DL (14.2-18.0) Hematocrit 41.5 % (42.0-52.0) Mean Corpuscular Volume 99 FL (80-99) Mean Corpuscular Hemoglobin 34.3 PG (27.0-31.0) Mean Corpuscular Hemoglobin Concent 34.6 G/DL (32.0-36.0) Red Cell Distribution Width 12.6 % (11.6-14.8) Platelet Count 157 K/UL (150-450) Mean Platelet Volume 5.0 FL (6.5-10.1) Neutrophils (%) (Auto) 65.5 % (45.0-75.0) Lymphocytes (%) (Auto) 28.7 % (20.0-45.0) Monocytes (%) (Auto) 3.5 % (1.0-10.0) Eosinophils (%) (Auto) 1.1 % (0.0-3.0) Basophils (%) (Auto) 1.1 % (0.0-2.0) Sodium Level 140 MMOL/L (136-145) Potassium Level 4.3 MMOL/L (3.5-5.1) Chloride Level 104 MMOL/L (98-107) Carbon Dioxide Level 28 MMOL/L (21-32) Anion Gap 9 mmol/L (5-15) Blood Urea Nitrogen 34 mg/dL (7-18) Creatinine 1.1 MG/DL (0.55-1.30) Estimat Glomerular Filtration Rate > 60 mL/min (>60) Glucose Level 105 MG/DL (74-106) Calcium Level 8.8 MG/DL (8.5-10.1) Total Bilirubin 1.0 MG/DL (0.2-1.0) Aspartate Amino Transf (AST/SGOT) 21 U/L (15-37) Alanine Aminotransferase (ALT/SGPT) 37 U/L (12-78) Alkaline Phosphatase 68 U/L (46-116) Total Creatine Kinase 82 U/L (26-308) Creatine Kinase MB 0.8 NG/ML (0.0-3.6) Creatine Kinase MB Relative Index 0.9 Troponin I 0.020 ng/mL (0.000-0.056) Pro-B-Type Natriuretic Peptide 112 pg/mL (0-125) Total Protein 6.3 G/DL (6.4-8.2) Albumin 3.0 G/DL (3.4-5.0) Globulin 3.3 g/dL Albumin/Globulin Ratio 0.9 (1.0-2.7) EKG Diagnostic Results Rate: normal Rhythm: NSR ST Segments: no acute changes ASA given to the pt in ED: No - allergic to aspirin Rhythm Strip Diag. Results EP Interpretation: yes Rhythm: NSR, no ectopy, other - PVCs Chest X-Ray Diagnostic Results Chest X-Ray Diagnostic Results : Chest X-Ray Ordered: Yes # of Views/Limited/Complete: 1 View Indication: Chest Pain EP Interpretation: Yes Interpretation: no consolidation, no effusion, no pneumothorax, no acute cardiopulmonary disease Impression: No acute disease Electronically Signed by: Electronically signed by Jose Mason MD Last Vital Signs Date Time Temp Pulse Resp B/P (MAP) Pulse Ox O2 Delivery O2 Flow Rate FiO2 08/22/18 19:41 91 20 97 Nasal Cannula 2.0 28 08/22/18 18:07 98.4 121/67 Status: improved Disposition: ADMITTED INPATIENT Condition: Serious Referrals: Ernesto Nicole DO (PCP) Jose Mason MD Aug 22, 2018 19:59
[2018-08-22 20:00] VITALS: BP 151/77
--- NOTE | 2018-08-22 20:10 | NUR ---
ED Nurse Note: Notified ERMD that two RT techs were unsuccessful at drawing ABGs on pt. ERMD aware with no new orders or instructions at this time.
[2018-08-22] MEDS: Heparin 5000 units/ml inj SUBQ SCH (21:09)
[2018-08-22] MEDS: Atorvastatin 80mg tab ORAL SCH (21:09)
--- NOTE | 2018-08-22 21:43 | NUR ---
ED Nurse Note: Received report. Pt from home, ambulatory, AAOx4, c/o lower back pain that started 10 days ago as well as a fever prior to coming to ED. VSS.Pt placed on residential monitor. Will carry out ERMD orders and monitor. Addendum: 08/22/18 at 2217 by TEVELYN WRONG PT!!!!!
[2018-08-22 22:10] VITALS: BP 136/75
--- NOTE | 2018-08-22 22:30 | NUR ---
NURSE NOTES: Received report from Elier Peterson RN. regarding patients transfer to TELE floor from ED, arrived via gurney and assisted to bed by staff. Belongings checklist done with RN at bedside. Kept patient clean, dry, and comfortable in bed. IV line intact and patent. Head to toe assessment done. New orders received and carried out. Will continue plan of care and monitor for any changes noted
[2018-08-22] MEDS: Morphine Sulfate 4mg/ml Inj (IV USE ONLY) IVP PRN (23:06)
--- NOTE | 2018-08-22 23:15 | Cardiology Progress Note ---
Assessment/Plan Assessment/Plan The patient is seen and examined, full consult note will be dictated. Objective Last 24 Hour Vital Signs Date Time Temp Pulse Resp B/P (MAP) Pulse Ox O2 Delivery O2 Flow Rate FiO2 08/22/18 22:10 97.8 87 22 136/75 (95) 96 08/22/18 21:36 98.5 75 14 150/79 98 Nasal Cannula 2.0 08/22/18 20:00 98.4 74 13 151/77 98 Nasal Cannula 2.0 08/22/18 19:41 91 20 97 Nasal Cannula 2.0 28 08/22/18 19:05 92 20 97 Nasal Cannula 2.0 28 08/22/18 19:00 92 18 98 Nasal Cannula 2.0 28 08/22/18 18:30 85 20 100 Nasal Cannula 2.0 28 08/22/18 18:13 83 22 Nasal Cannula 2.0 28 08/22/18 18:13 83 22 98 Nasal Cannula 2.0 28 08/22/18 18:07 98.4 84 18 121/67 98 Nasal Cannula 2.0 08/22/18 17:30 91 21 Nasal Cannula 2.0 08/22/18 17:30 98.3 91 21 105/52 99 Nasal Cannula 08/22/18 17:19 98.1 62 18 142/78 94 Nasal Cannula Laboratory Tests Test 08/22/18 17:12 White Blood Count 9.0 K/UL (4.8-10.8) Red Blood Count 4.19 M/UL (4.70-6.10) L Hemoglobin 14.4 G/DL (14.2-18.0) Hematocrit 41.5 % (42.0-52.0) L Mean Corpuscular Volume 99 FL (80-99) Mean Corpuscular Hemoglobin 34.3 PG (27.0-31.0) H Mean Corpuscular Hemoglobin Concent 34.6 G/DL (32.0-36.0) Red Cell Distribution Width 12.6 % (11.6-14.8) Platelet Count 157 K/UL (150-450) Mean Platelet Volume 5.0 FL (6.5-10.1) L Neutrophils (%) (Auto) 65.5 % (45.0-75.0) Lymphocytes (%) (Auto) 28.7 % (20.0-45.0) Monocytes (%) (Auto) 3.5 % (1.0-10.0) Eosinophils (%) (Auto) 1.1 % (0.0-3.0) Basophils (%) (Auto) 1.1 % (0.0-2.0) Sodium Level 140 MMOL/L (136-145) Potassium Level 4.3 MMOL/L (3.5-5.1) Chloride Level 104 MMOL/L (98-107) Carbon Dioxide Level 28 MMOL/L (21-32) Anion Gap 9 mmol/L (5-15) Blood Urea Nitrogen 34 mg/dL (7-18) H Creatinine 1.1 MG/DL (0.55-1.30) Estimat Glomerular Filtration Rate > 60 mL/min (>60) Glucose Level 105 MG/DL (74-106) Calcium Level 8.8 MG/DL (8.5-10.1) Total Bilirubin 1.0 MG/DL (0.2-1.0) Aspartate Amino Transf (AST/SGOT) 21 U/L (15-37) Alanine Aminotransferase (ALT/SGPT) 37 U/L (12-78) Alkaline Phosphatase 68 U/L (46-116) Total Creatine Kinase 82 U/L (26-308) Creatine Kinase MB 0.8 NG/ML (0.0-3.6) Creatine Kinase MB Relative Index 0.9 Troponin I 0.020 ng/mL (0.000-0.056) Pro-B-Type Natriuretic Peptide 112 pg/mL (0-125) Total Protein 6.3 G/DL (6.4-8.2) L Albumin 3.0 G/DL (3.4-5.0) L Globulin 3.3 g/dL Albumin/Globulin Ratio 0.9 (1.0-2.7) L Carlos Martins MD Aug 22, 2018 23:15
--- NOTE | 2018-08-23 | NUR ---
NURSE NOTES: Called and left message for MD Destiny. regarding patients request for Dilaudid IV for pain. Will continue to monitor
--- NOTE | 2018-08-23 02:00 | NUR ---
NURSE NOTES: Patient in bed asleep with no S/S of distress at this time, will continue to monitor
[2018-08-23] MEDS: Morphine Sulfate 4mg/ml Inj (IV USE ONLY) IVP PRN (04:09)
--- NOTE | 2018-08-23 05:32 | NUR ---
NURSE NOTES: Called and left message, regarding patient's request for dilaudid. Awaiting call back
[2018-08-23 07:21] LABS: HEMATOCRIT 41.6 % (42.0-52.0); MEAN CORPUSCULAR VOLUME 99 FL (80-99); PLATELET COUNT 162 K/UL (150-450); RED BLOOD COUNT 4.21 M/UL (4.70-6.10); RED CELL DISTRIBUTION WIDTH 12.6 % (11.6-14.8); WHITE BLOOD COUNT 7.9 K/UL (4.8-10.8)
[2018-08-23 07:24] LABS: INR 0.9 (0.9-1.1)
--- NOTE | 2018-08-23 07:48 | NUR ---
HAND-OFF: Report given to Sharyn Avery RN. ENdorsed plan of care, patient in stable condition.
--- NOTE | 2018-08-23 07:50 | NUR ---
NURSE NOTES: Pt received from Sang Jett RN. Pt is sitting on edge of bed, alert and oriented x4 with complaints of 10/10 pain. No s/s of SOB or n/v. IV site asymptomatic and patent, on right finger 22g. Bed in lowest position, call light and belongings within reach. RN advised pt that she will contact MD for pain med orders.
[2018-08-23 07:52] LABS: CHOLESTEROL 153 MG/DL (< 200); HDL CHOLESTEROL 67 MG/DL (40-60); TRIGLYCERIDES 57 MG/DL (30-150)
[2018-08-23 08:00] VITALS: BP 154/80
--- NOTE | 2018-08-23 08:15 | General Progress Note ---
Assessment/Plan Assessment/Plan (1) Lumbar DDD (2) Lumbar Spondylosis (3) Lumbar Radiculopathy (4) Morbid Obesity (5) Right knee pain (6) Right knee OA h/o ORIF Patient will be discontinued off the Morphine IV and start Morphine ER 15mg PO 1 tab Q12H ATC hold for oversedation and Dilaudid 1mg IV Q4H PRN severe pain and continue [place] time dose of Dilaudid 2mg iv given. D/w Dr. Magaña and he concurred. Subjective Date patient seen: Aug 24, 2018 Time patient seen: 07:15 - am Allergies: Coded Allergies: ASPIRIN (Verified Allergy, Unknown, 07/14/18) KETOROLAC (Verified Allergy, Unknown, 07/14/18) PENICILLINS (Verified Allergy, Unknown, 07/14/18) Subjective REVIEW OF SYSTEMS: Denies rash, fever, chills, sweating, dizziness, drowsiness, blurred vision, sore throat, change in weight. No shortness of breath or chest pain. No nausea, vomiting, diarrhea, or blood in the stool or urine. No bowel or bladder incontinence. No dysuria. He is complaining of low back pain and right lower extremity pain. SUBJECTIVE: Patient is a known patient from previous admission. Continues to c/o low back and right knee pain. Started on Morphine 2mg IV with minimal relief. due to this we were consulted so patient has adequate pain relief while here in the hospital. Objective Last 24 Hour Vital Signs Date Time Temp Pulse Resp B/P (MAP) Pulse Ox O2 Delivery O2 Flow Rate FiO2 08/23/18 04:00 72 08/23/18 00:00 84 08/22/18 22:43 Nasal Cannula 2.0 08/22/18 22:20 92 08/22/18 22:10 97.8 87 22 136/75 (95) 96 08/22/18 21:36 98.5 75 14 150/79 98 Nasal Cannula 2.0 08/22/18 20:00 98.4 74 13 151/77 98 Nasal Cannula 2.0 08/22/18 19:41 91 20 97 Nasal Cannula 2.0 28 08/22/18 19:05 92 20 97 Nasal Cannula 2.0 08/22/18 19:00 92 18 98 Nasal Cannula 2.0 08/22/18 18:30 85 20 100 Nasal Cannula 2.0 28 08/22/18 18:13 83 22 Nasal Cannula 2.0 28 08/22/18 18:13 83 22 98 Nasal Cannula 2.0 28 08/22/18 18:07 98.4 84 18 121/67 98 Nasal Cannula 2.0 08/22/18 17:30 91 21 Nasal Cannula 2.0 08/22/18 17:30 98.3 91 21 105/52 99 Nasal Cannula 08/22/18 17:19 98.1 62 18 142/78 94 Nasal Cannula Intake and Output 08/22/18 08/23/18 19:00 07:00 Intake Total 720 ml Output Total 1500 ml Balance -780 ml Intake Oral 720 ml Output Urine Total 1500 ml # Voids 1 # Bowel Movements 1 Laboratory Tests 08/22/18 17:12: White Blood Count 9.0, Red Blood Count 4.19L, Hemoglobin 14.4, Hematocrit 41.5L , Mean Corpuscular Volume 99, Mean Corpuscular Hemoglobin 34.3H, Mean Corpuscular Hemoglobin Concent 34.6, Red Cell Distribution Width 12.6, Platelet Count 157, Mean Platelet Volume 5.0L, Neutrophils (%) (Auto) 65.5, Lymphocytes ( %) (Auto) 28.7, Monocytes (%) (Auto) 3.5, Eosinophils (%) (Auto) 1.1, Basophils (%) (Auto) 1.1, Sodium Level 140, Potassium Level 4.3, Chloride Level 104, Carbon Dioxide Level 28, Anion Gap 9, Blood Urea Nitrogen 34H, Creatinine 1.1, Estimat Glomerular Filtration Rate > 60, Glucose Level 105, Calcium Level 8.8, Total Bilirubin 1.0, Aspartate Amino Transf (AST/SGOT) 21, Alanine Aminotransferase (ALT/SGPT) 37, Alkaline Phosphatase 68, Total Creatine Kinase 82, Creatine Kinase MB 0.8, Creatine Kinase MB Relative Index 0.9, Troponin I 0.020, Pro-B-Type Natriuretic Peptide 112, Total Protein 6.3L, Albumin 3.0L, Globulin 3.3, Albumin/Globulin Ratio 0.9L 08/23/18 06:30: White Blood Count 7.9, Red Blood Count 4.21L, Hemoglobin 14.0L, Hematocrit 41.6L , Mean Corpuscular Volume 99, Mean Corpuscular Hemoglobin 33.2H, Mean Corpuscular Hemoglobin Concent 33.5, Red Cell Distribution Width 12.6, Platelet Count 162, Mean Platelet Volume 5.5L, Neutrophils (%) (Auto) , Lymphocytes (%) ( Auto) , Monocytes (%) (Auto) , Eosinophils (%) (Auto) , Basophils (%) (Auto) , Troponin I [Pending], Neutrophils % (Manual) [Pending], Lymphocytes % (Manual) [ Pending], Platelet Estimate [Pending], Platelet Morphology [Pending], Prothrombin Time 9.9, Prothromb Time International Ratio 0.9, Activated Partial Thromboplast Time 24, C-Reactive Protein, Quantitative [Pending], Triglycerides Level [Pending], Cholesterol Level [Pending], LDL Cholesterol [Pending], HDL Cholesterol [Pending], Cholesterol/HDL Ratio [Pending], Thyroid Stimulating Hormone (TSH) [Pending] Height (Feet): 5 Height (Inches): 11.00 Weight (Pounds): 479 Objective GENERAL: Alert, awake, and oriented x3. LUNGS: Decreased breath sounds bilaterally. HEART: S1 and S2, regular. ABDOMEN: Obese, tender ness to palpation with skin changes noted. EXTREMITIES: No cyanosis. No clubbing. No edema. NEURO: No Focal deficits. Eliezer Nicole Aug 23, 2018 08:15
[2018-08-23] MEDS ORDERED: HYDROmorphone 1mg/ml Carpuject IVP PRN (09:00)
[2018-08-23] MEDS: Theophylline ER 100mg ORAL SCH (09:09)
[2018-08-23] MEDS: MS Contin 15mg tab ORAL SCH ×2 (09:09→20:39)
[2018-08-23] MEDS: Furosemide 40mg tab ORAL SCH (09:09)
[2018-08-23] MEDS: Heparin 5000 units/ml inj SUBQ SCH ×2 (09:12→20:44)
--- NOTE | 2018-08-23 11:07 | Cardiology Report ---
APPROVED REPORT EKG Measurement Heart [id number] Sinus rhythm with frequent premature ventricular complexes Septal infarct, age undetermined Abnormal ECG
--- NOTE | 2018-08-23 11:48 | Cardiology Report ---
APPROVED REPORT EXAM: Two-dimensional and M-mode echocardiogram with Doppler and color Doppler. INDICATION Left ventricular function M-Mode DIMENSIONS IVSd1.5 (0.7-1.1cm)Left Atrium (MM)4.2 (1.6-4.0cm) LVDd3.9 (3.5-5.6cm)Aortic Root4.0 (2.0-3.7cm) PWd0.9 (0.7-1.1cm)Aortic Cusp Exc.2.5 (1.5-2.0cm) LVDs2.2 (2.5-4.0cm) PWs2.0 cm Technically difficult study due to patient's body habitus. Study quality precludes accurate assessment of regional wall motion. Normal left ventricular chamber size, systolic function and wall motion to extent visualized. Left ventricular ejection fraction estimated to be 55-60 %. Mild left ventricular hypertrophy. Anterior Echo-free space, may be due to pericardial fat or effusion. Mild left atrial enlargement. Right cardiac chamber sizes are within normal limits. Mild focal aortic valve sclerosis with adequate cusp excursion. Mild aortic root dilatation. Mildly thickened mitral valve leaflets with normal excursion. Mild mild mitral annulus and aortic root calcification. Pulmonic valve not well visualized. Normal tricuspid valve structure. IVC dilated at 3.0 cm with physiological collapse, suggestive of increased RA pressure. A color flow and spectral Doppler study was performed and revealed: No aortic insufficiency. Trace mitral regurgitation. Mitral diastolic velocities suggest mild left ventricular diastolic dysfunction (Grade I). Trace tricuspid regurgitation. Tricuspid systolic velocities suggests peak right ventricular systolic pressure of 40 mmHg, consistent with mild pulmonary hypertension. No pulmonic regurgitation present.
[2018-08-23 12:00] VITALS: BP 134/79
--- NOTE | 2018-08-23 12:25 | Consultation ---
History of Present Illness General Date patient seen: Aug 23, 2018 Chief Complaint: Chest Pain Present Illness HPI 42-year-old male with hx of HTN, CHF, ADALBERTO, COPD, seizures, morbidly obese, from retirement facility presented to ED for evaluation of chest pain, started 30 minutes ago at rest. Left-sided, pressure, 8 out of 10, radiating down the left arm. He was given nitroglycerin by EMS but states it did not help. He is admitted to telemetry for further evaluation. Allergies: Coded Allergies: ASPIRIN (Verified Allergy, Unknown, 07/14/18) KETOROLAC (Verified Allergy, Unknown, 07/14/18) PENICILLINS (Verified Allergy, Unknown, 07/14/18) Medication History Scheduled Atorvastatin Calcium* (Lipitor*), 80 MG ORAL BEDTIME, (Reported) Clopidogrel* (Clopidogrel*), 75 MG ORAL DAILY, (Reported) Diltiazem Hcl (Diltiazem Hcl), 120 MG PO DAILY, (Reported) Docusate Sodium* (Docusate Sodium*), 100 MG ORAL DAILY, (Reported) Furosemide* (Lasix*), 40 MG ORAL DAILY, (Reported) Gabapentin* (Gabapentin*), 600 MG ORAL THREE TIMES A DAY, (Reported) Ipratropium/Albuterol Sulfate (DuoNeb 0.5-3(2.5)mg/3ml), 3 ML HHN Q6HR, ( Reported) Isosorbide Dinitrate (Isosorbide Dinitrate), 30 MG PO DAILY, (Reported) Isosorbide Mononitrate (Isosorbide Mononitrate Er), 30 MG PO DAILY, (Reported) Levetiracetam (Keppra Xr), 500 MG ORAL BID, (Reported) Morphine Sulfate (Morphine Sulfate Er), 15 MG PO DAILY, (Reported) Theophylline Anhydrous (George-24), 300 MG PO DAILY, (Reported) Tiotropium Xenia (Spiriva), 0 INH DAILY, (Reported) Scheduled PRN Acetaminophen* (Acetaminophen 325MG Tablet*), 650 MG ORAL Q4H PRN for Mild Pain/ Temp > 100.5, (Reported) Bisacodyl (Dulcolax), 10 MG RC DAILY PRN for IF MOM INEFFECTIVE, (Reported) Codeine/Promethazine Hcl* (Promethazine-Codeine Syrup*), 5 ML ORAL Q4H PRN for For Cough, (Reported) Hydrocodone Bit/Acetaminophen 10-325* ([place] 10-325*), 1 TAB ORAL Q4H PRN for For Pain, (Reported) Magnesium Hydroxide* (Milk Of Magnesia*), 30 ML ORAL BEDTIME PRN for IF DOCUSATE INEFFECTIVE, (Reported) Na Phos,M-B/Na Phos,Di-Ba* (Fleet Enema*), 133 ML RECTAL QOD PRN for IF DULCOLAX INEFFECTIVE, (Reported) Nitroglycerin (Nitrostat), 0.4 MG SL Q5M X3 DOSES PRN for CHEST PAIN, (Reported) Polyethylene Glycol 3350* (Miralax*), 17 GM ORAL DAILY PRN for Constipation, ( Reported) Discontinued Medications Albuterol Sulfate* (Albuterol Sulfate Hhn*), 3 ML INH Q4H PRN for Shortness of Breath, (Reported) Discontinued Reason: Pt stopped taking med Amlodipine Besylate (Norvasc), 5 MG ORAL DAILY, (Reported) Discontinued Reason: Pt stopped taking med Atorvastatin (Lipitor), 40 MG ORAL BEDTIME, (Reported) Discontinued Reason: Pt stopped taking med Codeine/Promethazine Hcl* (Promethazine-Codeine Syrup*), 5 ML ORAL Q4H PRN for For Cough, (Reported) Discontinued Reason: Pt stopped taking med Duloxetine Hcl* (Cymbalta*), 30 MG ORAL DAILY, (Reported) Discontinued Reason: Pt stopped taking med Furosemide* (Lasix*), 40 MG ORAL EVERY 8 HOURS, (Reported) Discontinued Reason: Pt stopped taking med Gabapentin* (Gabapentin*), 600 MG ORAL THREE TIMES A DAY, (Reported) Discontinued Reason: Pt stopped taking med Levetiracetam (Levetiracetam), 500 MG ORAL TWICE A DAY, (Reported) Discontinued Reason: Pt stopped taking med Methylprednisolone (Methylprednisolone*), 4 MG ORAL DIRECTED, (Reported) Discontinued Reason: Pt stopped taking med Morphine HCl (Morphine Sulfate ER), 15 MG ORAL Q6H PRN for For Pain, (Reported) Discontinued Reason: Pt stopped taking med Nitroglycerin (Nitroglycerin), 0.3 MG SCONJUNC, (Reported) Discontinued Reason: Pt stopped taking med Ondansetron* (Zofran*), 4 MG ORAL Q6H PRN for Nausea & Vomiting, (Reported) Discontinued Reason: Pt stopped taking med Ondansetron* (Zofran*), 4 MG ORAL Q6H PRN for Nausea & Vomiting, (Reported) Discontinued Reason: Pt stopped taking med Polyethylene Glycol 3350* (Polyethylene Glycol 3350*), 17 GM ORAL BEDTIME, ( Reported) Discontinued Reason: Pt stopped taking med Prednisone* (Prednisone*), 20 MG ORAL DAILY, (Reported) Discontinued Reason: Pt stopped taking med Sennosides (Senna), 17.2 MG PO BEDTIME, (Reported) Discontinued Reason: Pt stopped taking med Temazepam* (Restoril*), 15 MG ORAL BEDTIME PRN for Insomnia, (Reported) Discontinued Reason: Pt stopped taking med Theophylline (Theodur*), 100 MG ORAL TWICE A DAY, (Reported) Discontinued Reason: Pt stopped taking med Theophylline (Theodur*), 100 MG ORAL Q8HR, (Reported) Discontinued Reason: Pt stopped taking med Theophylline Anhydrous (Theophylline), 100 MG PO, (Reported) Discontinued Reason: MD discontinued med Patient History Healthcare decision maker N Resuscitation status Full Code Advanced Directive on File No Past Medical/Surgical History Past Medical/Surgical History: (1) COPD (chronic obstructive pulmonary disease) (2) ADALBERTO (obstructive sleep apnea) (3) Seizures (4) Morbid obesity Review of Systems All Other Systems: negative except mentioned in HPI Physical Exam General Appearance: WD/WN, morbidly obese Lines, tubes and drains: peripheral HEENT: normocephalic, atraumatic Neck: non-tender, normal alignment Respiratory/Chest: chest wall non-tender, lungs clear Cardiovascular/Chest: normal peripheral pulses, no JVD Abdomen: normal bowel sounds, non tender, other - extrem obesity Genitourinary/Rectal: normal genital exam Extremities: normal range of motion Last 24 Hour Vital Signs Date Time Temp Pulse Resp B/P (MAP) Pulse Ox O2 Delivery O2 Flow Rate FiO2 08/23/18 09:00 Room Air 08/23/18 08:00 73 08/23/18 04:00 72 08/23/18 00:00 84 08/22/18 22:43 Nasal Cannula 2.0 08/22/18 22:20 92 08/22/18 22:10 97.8 87 22 136/75 (95) 96 08/22/18 21:36 98.5 75 14 150/79 98 Nasal Cannula 2.0 08/22/18 20:00 98.4 74 13 151/77 98 Nasal Cannula 2.0 08/22/18 19:41 91 20 97 Nasal Cannula 2.0 28 08/22/18 19:05 92 20 97 Nasal Cannula 2.0 28 08/22/18 19:00 92 18 98 Nasal Cannula 2.0 28 08/22/18 18:30 85 20 100 Nasal Cannula 2.0 28 08/22/18 18:13 83 22 Nasal Cannula 2.0 28 08/22/18 18:13 83 22 98 Nasal Cannula 2.0 28 08/22/18 18:07 98.4 84 18 121/67 98 Nasal Cannula 2.0 08/22/18 17:30 91 21 Nasal Cannula 2.0 08/22/18 17:30 98.3 91 21 105/52 99 Nasal Cannula 08/22/18 17:19 98.1 62 18 142/78 94 Nasal Cannula Intake and Output 08/22/18 08/23/18 19:00 07:00 Intake Total 720 ml Output Total 1500 ml Balance -780 ml Intake Oral 720 ml Output Urine Total 1500 ml # Voids 1 # Bowel Movements 1 Laboratory Tests Test 08/22/18 17:12 08/23/18 06:30 White Blood Count 9.0 K/UL (4.8-10.8) 7.9 K/UL (4.8-10.8) Red Blood Count 4.19 M/UL (4.70-6.10) L 4.21 M/UL (4.70-6.10) L Hemoglobin 14.4 G/DL (14.2-18.0) 14.0 G/DL (14.2-18.0) L Hematocrit 41.5 % (42.0-52.0) L 41.6 % (42.0-52.0) L Mean Corpuscular Volume 99 FL (80-99) 99 FL (80-99) Mean Corpuscular Hemoglobin 34.3 PG (27.0-31.0) H 33.2 PG (27.0-31.0) H Mean Corpuscular Hemoglobin Concent 34.6 G/DL (32.0-36.0) 33.5 G/DL (32.0-36.0) Red Cell Distribution Width 12.6 % (11.6-14.8) 12.6 % (11.6-14.8) Platelet Count 157 K/UL (150-450) 162 K/UL (150-450) Mean Platelet Volume 5.0 FL (6.5-10.1) L 5.5 FL (6.5-10.1) L Neutrophils (%) (Auto) 65.5 % (45.0-75.0) % (45.0-75.0) Lymphocytes (%) (Auto) 28.7 % (20.0-45.0) % (20.0-45.0) Monocytes (%) (Auto) 3.5 % (1.0-10.0) % (1.0-10.0) Eosinophils (%) (Auto) 1.1 % (0.0-3.0) % (0.0-3.0) Basophils (%) (Auto) 1.1 % (0.0-2.0) % (0.0-2.0) Sodium Level 140 MMOL/L (136-145) Potassium Level 4.3 MMOL/L (3.5-5.1) Chloride Level 104 MMOL/L (98-107) Carbon Dioxide Level 28 MMOL/L (21-32) Anion Gap 9 mmol/L (5-15) Blood Urea Nitrogen 34 mg/dL (7-18) H Creatinine 1.1 MG/DL (0.55-1.30) Estimat Glomerular Filtration Rate > 60 mL/min (>60) Glucose Level 105 MG/DL (74-106) Calcium Level 8.8 MG/DL (8.5-10.1) Total Bilirubin 1.0 MG/DL (0.2-1.0) Aspartate Amino Transf (AST/SGOT) 21 U/L (15-37) Alanine Aminotransferase (ALT/SGPT) 37 U/L (12-78) Alkaline Phosphatase 68 U/L (46-116) Total Creatine Kinase 82 U/L (26-308) Creatine Kinase MB 0.8 NG/ML (0.0-3.6) Creatine Kinase MB Relative Index 0.9 Troponin I 0.020 ng/mL (0.000-0.056) 0.020 ng/mL (0.000-0.056) Pro-B-Type Natriuretic Peptide 112 pg/mL (0-125) Total Protein 6.3 G/DL (6.4-8.2) L Albumin 3.0 G/DL (3.4-5.0) L Globulin 3.3 g/dL Albumin/Globulin Ratio 0.9 (1.0-2.7) L Differential Total Cells Counted 100 Neutrophils % (Manual) 86 % (45-75) H Lymphocytes % (Manual) 4 % (20-45) L Monocytes % (Manual) 1 % (1-10) Eosinophils % (Manual) 0 % (0-3) Basophils % (Manual) 0 % (0-2) Band Neutrophils 9 % (0-8) H Platelet Estimate Adequate Platelet Morphology Normal Macrocytosis 1+ Prothrombin Time 9.9 SEC (9.30-11.50) Prothromb Time International Ratio 0.9 (0.9-1.1) Activated Partial Thromboplast Time 24 SEC (23-33) C-Reactive Protein, Quantitative 1.3 mg/dL (0.00-0.90) H Triglycerides Level 57 MG/DL (30-150) Cholesterol Level 153 MG/DL (< 200) LDL Cholesterol 76 mg/dL (<100) HDL Cholesterol 67 MG/DL (40-60) H Cholesterol/HDL Ratio 2.3 (3.3-4.4) L Thyroid Stimulating Hormone (TSH) 0.424 uiU/mL (0.358-3.740) Height (Feet): 5 Height (Inches): 11.00 Weight (Pounds): 479 Medications Current Medications Medications (Trade) Dose Ordered Sig/Luis Route PRN Reason Start Time Stop Time Status Last Admin Dose Admin Acetaminophen (Tylenol) 650 mg Q4H PRN ORAL FEVER 08/22/18 19:45 09/21/18 19:44 Acetaminophen/ Hydrocodone Bitart ([place] 10/325) 1 tab Q4H PRN ORAL For Pain 08/22/18 19:45 08/29/18 19:44 Albuterol/ Ipratropium (Albuterol/ Ipratropium) 3 ml Q4H PRN HHN Shortness of Breath 08/22/18 19:45 08/27/18 19:44 Atorvastatin Calcium (Lipitor) 80 mg BEDTIME ORAL 08/22/18 21:00 2/25/19 20:59 08/22/18 21:09 Clopidogrel Bisulfate (Plavix) 75 mg DAILY ORAL 08/23/18 09:00 09/22/18 08:59 08/23/18 09:09 Diltiazem HCl (Cardizem) 10 mg Q1H PRN IV heart rate more than 120, 08/22/18 19:45 09/21/18 19:44 Enalaprilat (Vasotec) 2.5 mg Q6H PRN IV sbp more than 160 08/22/18 19:45 09/21/18 19:44 Furosemide (Lasix) 40 mg DAILY ORAL 08/23/18 09:00 09/22/18 08:59 08/23/18 09:09 Gabapentin (Neurontin) 600 mg THREE TIMES A DAY ORAL 08/23/18 09:00 09/22/18 08:59 08/23/18 12:14 Heparin Sodium (Porcine) (Heparin 5000 units/ml) 5,000 units EVERY 12 HOURS SUBQ 08/22/18 21:00 09/21/18 20:59 08/23/18 09:12 Hydromorphone HCl (Dilaudid) 1 mg Q4H PRN IVP Severe Pain (Pain Scale 7-10) 08/23/18 09:00 08/30/18 08:59 Morphine Sulfate (MS Contin) 15 mg Q12HR ORAL 08/23/18 09:00 08/30/18 08:59 08/23/18 09:09 Nitroglycerin (Ntg) 0.4 mg Q5M PRN SL Prn Chest Pain 08/22/18 19:45 09/21/18 19:44 Ondansetron HCl (Zofran) 4 mg Q6H PRN IVP Nausea & Vomiting 08/22/18 19:45 09/21/18 19:44 Polyethylene Glycol (Miralax) 17 gm DAILYPRN PRN ORAL Constipation 08/22/18 19:45 09/21/18 19:44 Temazepam (Restoril) 15 mg HSPRN PRN ORAL Insomnia 08/22/18 19:45 08/29/18 19:44 Theophylline (George-Dur) 100 mg DAILY ORAL 08/23/18 09:00 09/22/18 08:59 08/23/18 09:09 Tiotropium Xenia (Spiriva Inhaler) 1 puff DAILY INH 08/23/18 09:00 09/22/18 08:59 Assessment/Plan Problem List: (1) ACS (acute coronary syndrome) ICD Codes: I24.9 - Acute ischemic heart disease, unspecified SNOMED: 913569935 (2) COPD (chronic obstructive pulmonary disease) ICD Codes: J44.9 - Chronic obstructive pulmonary disease, unspecified SNOMED: 31067134 Qualifiers: Qualified Codes: J44.9 - Chronic obstructive pulmonary disease, unspecified (3) Right heart failure ICD Codes: I50.810 - Right heart failure, unspecified SNOMED: 932143615 (4) Abdominal pannus ICD Codes: E65 - Localized adiposity SNOMED: 1406277197477 (5) ADALBERTO (obstructive sleep apnea) ICD Codes: G47.33 - Obstructive sleep apnea (adult) (pediatric) SNOMED: 06263363 (6) Seizures ICD Codes: R56.9 - Unspecified convulsions SNOMED: 36738622 (7) Morbid obesity ICD Codes: E66.01 - Morbid (severe) obesity due to excess calories SNOMED: 186047931 Assessment/Plan Respiratory treatment bipap prn at night cardiology f/u serial ekg, troponin Plastic surgeon to see symptomatic treatment dvt prophylaxis titrate fio2 to saturation of 92% Bill Dixon MD Aug 23, 2018 12:25
--- NOTE | 2018-08-23 12:45 | NUR ---
NURSE NOTES: Per Dr. Dixon, change Dilaudid 1 mg IV q4h PRN to Dilaudid 2 mg. Will carry out orders.
[2018-08-23] MEDS: Albuterol/Ipratropium 3ml neb HHN PRN ×2 (13:48→20:46)
--- NOTE | 2018-08-23 15:00 | History and Physical Report ---
DATE OF ADMISSION: 08/22/2018 TIME SEEN: 8 a.m. ATTENDING PHYSICIAN: Ernesto Nicole D.O. CONSULTING PHYSICIAN: 1. Bill Dixon M.D. 2. Carlos Martins M.D. 3. Laney Mcghee M.D. 4. Cece Magaña M.D. CHIEF COMPLAINT: Chest pain, shortness of breath, anxious, chronic pain, and obesity. BRIEF HISTORY: This is a 52-year-old male, who lives at [facility], presents with increased shortness of breath for three days and slight chest pain. The patient came to [place], diagnosed the above, and admitted to telemetry for further care. Currently, slightly anxious in bed, O2 NC, slight short of breath. PAST MEDICAL HISTORY: Includes morbidly obese, seizure, edema, congestive heart failure, and COPD. PAST SURGICAL HISTORY: Knee surgery, thyroid surgery, and lithotripsy. MEDICATIONS: Include Plavix, Lasix, Neurontin, Spiriva, Vicente, MS Contin, Dilaudid, Lipitor, heparin, hydrocodone, nitroglycerin, Zofran, enalapril, and diltiazem. ALLERGIES: Aspirin, ketorolac, and penicillin. SOCIAL HISTORY: Positive smoking. No alcohol. No intravenous drug abuse. FAMILY HISTORY: Noncontributory. PHYSICAL EXAMINATION: GENERAL: O2 NC, slightly anxious in bed, slight short of breath. VITAL SIGNS: Temperature is 97 degrees, pulse 87, respirations 22, and blood pressure 136/75. CARDIOVASCULAR: No murmur. LUNGS: Poor exchange. ABDOMEN: Bowel sounds distant. EXTREMITIES: Show no cyanosis or clubbing. 1+ edema. NEUROLOGIC: The patient moves all extremities, slightly weak. LABORATORY DATA: Labs at this time show hemoglobin 14. Otherwise, CBC is normal. BMP show BUN 34, troponin 0.02, and albumin 3.0. Otherwise, BMP is normal. INR 0.9. PTT is 24. ASSESSMENT: Chest pain, shortness of breath, anxiety, chronic pain, obesity, and edema. PLAN: 1. Cardiology followup. 2. Troponin q.8 x3. 3. EKG in morning. 4. O2 pulmonary treatment. 5. Pain control. 6. Dietary followup. 7. Physical therapy evaluation. 8. CBC and BMP in the morning. Ernesto Nicole D.O. DR: David JOB#: [id number] CC:
[2018-08-23 16:00] VITALS: BP 111/59
--- NOTE | 2018-08-23 16:04 | NUR ---
CASE MANAGEMENT: REVIEW 52/M BIBA FROM [facility] CC: CHEST PAIN SI: COPD . ACS T 98.1 HR 62 RR 18 BP 142/78 SAT 94% NC/2L BUN 34 IS: DILAUDID IV X1 SOLU MEDROL IV X1 ATROVENT HHN X1 ALBUTEROL HHN X1 MAG SULFATE IV X1 INTERQUAL CRITERIA MET: PATIENT ADMITTED TO TELEMETRY UNIT 08/22/2018 DCP: PATIENT IS FROM [facility]
--- NOTE | 2018-08-23 18:15 | Consultation ---
DATE OF CONSULTATION: 08/22/2018 CARDIOLOGY CONSULTATION CONSULTING PHYSICIAN: Carlos Martins M.D. REFERRING PHYSICIAN: Ernesto Nicole D.O. REASON FOR CONSULTATION: Management of chest pain. HISTORY OF PRESENT ILLNESS: The patient is a very unfortunate 52-year-old gentleman, who presents to this facility complaining of chest pain. He was recently discharged from this facility just about a few days ago. He had dyspnea, which was believed to be due to acute exacerbation of COPD. Echocardiography in June 2018 in this facility had revealed normal LV systolic and diastolic function with LVEF approximately 55% and presence of a normal pulmonary artery pressure. The patient suffers from morbid obesity with BMI of 52 and presence of a large pannus. He has obesity hypoventilation syndrome as well. His cardiovascular history also includes hypertension and hyperlipidemia. At the time of arrival to the hospital, chest pain was in the left precordial area, pressure-like, 8/10 with radiation down to the left arm. No associated shortness of breath, not relieved by nitroglycerin. PAST MEDICAL HISTORY: 1. COPD. 2. Obesity hypoventilation syndrome. 3. History of seizure disorder. 4. Hypertension. 5. Obesity with large pannus. ALLERGIES: Aspirin, Ketoralac, and penicillin. FAMILY HISTORY: No premature coronary artery disease in the first-degree relatives. SOCIAL HISTORY: Denies any tobacco, alcohol, or illicit drug use. REVIEW OF SYSTEMS: HEENT: Denies any headache, diplopia, or blurred vision. CONSTITUTIONAL: Denies any fever, chills, night sweats, or weight loss. CARDIOVASCULAR: Has chest pain, but no shortness of breath. No PND, orthopnea, or leg swelling. PULMONARY: Complains of dyspnea on exertion, but no hemoptysis or wheezing. GASTROINTESTINAL: Denies any nausea, vomiting, diarrhea, constipation, abdominal pain, or GI bleed. GENITOURINARY: Denies any hematuria, dysuria, or incontinence. NEUROLOGIC: Denies any motor dysfunction, sensory deficit, or altered speech. MEDICATIONS: List of medication includes acetaminophen 650 mg q.4 h. p.r.n. temperature above 100.5 and mild pain, atorvastatin 80 mg p.o. nightly, Dulcolax 10 mg daily p.r.n. constipation, clopidogrel 75 mg p.o. daily, promethazine and codeine 5 mL q.6 hours p.r.n. cough, diltiazem 120 mg p.o. daily, Colace 100 mg p.o. daily, furosemide 40 mg p.o. daily, gabapentin 600 mg three times a day, [place] 10/325 mg one tablet q.4 h. p.r.n. pain, DuoNeb 3 mL HHN q.6 hours, isosorbide dinitrate 30 mg p.o. daily, Keppra 500 mg twice daily, milk of magnesia 30 mL nightly p.r.n. constipation, morphine sulfate 15 mg p.o. daily, Fleet Enema 133 mL per rectal every other day p.r.n. constipation, Nitrostat 0.4 mg sublingual q.5 minutes x3 dose p.r.n. chest pain, MiraLAX 17 g daily p.r.n. constipation, George-24 300 mg p.o. daily, and Spiriva inhaler once daily. PHYSICAL EXAMINATION: VITAL SIGNS: Blood pressure at time of arrival to the hospital was 142/78, pulse 62, respirations 18, pulse oximetry 94% on nasal cannula, and temperature 98.1 degrees Fahrenheit. GENERAL: The patient is a very unfortunate 52-year-old morbidly obese gentleman, in no apparent respiratory distress. HEENT: Atraumatic and normocephalic. Anicteric. Pupils are equal, round, and reactive to light and accommodation. Extraocular muscles intact. NECK: JVP less than 5 cm. No carotid bruit. Carotid upstrokes 2+ bilaterally. CVS: Normal S1, S2. Regular rate and rhythm. No murmurs, gallops, or rubs. LUNGS: Diminished breath sounds bilaterally. ABDOMEN: Large pannus. Cannot appreciate hepatosplenomegaly. Positive bowel sounds. EXTREMITIES: There is no evidence of edema, clubbing, or cyanosis. LABORATORY FINDINGS: WBC is 9.0, hemoglobin 14.4, hematocrit 41.5, and platelet count 157. Chemistry showed sodium 140, potassium 4.3, chloride 104, bicarbonate 28, BUN 34, and creatinine 1.1. Glucose is 105. Calcium is 8.8. Troponin I x2 negative. ProBNP 112. Total cholesterol 153, LDL 76, and HDL 67. INR is 0.9. Chest x-ray showed low lung volumes with bronchovascular crowding. No acute cardiopulmonary disease. Echocardiography showed normal LV systolic function with LVEF of 55% to 60%. Mild LVH. Mild left atrial enlargement. Normal size cardiac chambers, right cardiac chambers. Grade 1 LV diastolic dysfunction or impaired relaxation. Pulmonary artery pressure of 40 mmHg consistent with mild pulmonary hypertension. ASSESSMENT AND PLAN: The patient is a very unfortunate 52-year-old gentleman, seen in Cardiology consultation. 1. Most likely noncardiac chest pain. Electrocardiography shows sinus rhythm with premature ventricular complexes with no acute ST and T-wave abnormalities. First troponin level within normal limits. Beta-natriuretic peptide is also within normal limits. This is most likely due to obesity hypoventilation syndrome or COPD. 2. History of chronic obstructive pulmonary disease. 3. Obesity hypoventilation syndrome. 4. History of seizure disorder. 5. History of hypertension. I would like to thank, Dr. Nicole, for the courtesy of this consultation. Carlos Martins M.D. DR: LISA JOB#: [id number] CC:
--- NOTE | 2018-08-23 19:15 | NUR ---
HAND-OFF: Report given to MICAELA Christine.
[2018-08-23 20:00] VITALS: BP 146/82
--- NOTE | 2018-08-23 20:00 | NUR ---
NURSE NOTES: Pt awake/alert, sitting upright at edge of bed, breathing easily room air, denies SOB but c/o 9/10 generalized burning/aching/sharp pain at this time. Vital signs stable with SR, bigeminal PVC @ 76 on monitor. IV access right hand, flushed with 10 ml NS and locked. Pt has an abdominal panniculus hanging nearly to his knees. Urinal available at bedside. Bed left in low position, side rails up x 2 and call light left near pt's hand.
[2018-08-23] MEDS: Atorvastatin 80mg tab ORAL SCH (20:38)
[2018-08-24] VITALS: BP 136/90
[2018-08-24] MEDS: Albuterol/Ipratropium 3ml neb HHN PRN ×3 (03:40→23:09)
[2018-08-24 04:00] VITALS: BP 117/73
--- NOTE | 2018-08-24 07:32 | NUR ---
NURSE NOTES: received patient report from carlos powers. patient is on bed awake. in sitting position.no acute distress noted. bed is low and locked for safety. will continue to monitor.
[2018-08-24 08:00] VITALS: BP 151/65
[2018-08-24 08:29] LABS: BASOPHILS % (AUTO) 0.5 % (0.0-2.0); EOSINOPHILS % (AUTO) 0.5 % (0.0-3.0); HEMATOCRIT 44.5 % (42.0-52.0); HEMOGLOBIN 14.8 G/DL (14.2-18.0); LYMPHOCYTES % (AUTO) 20.3 % (20.0-45.0); MEAN CORPUSCULAR VOLUME 100 FL (80-99); MONOCYTES % (AUTO) 4.9 % (1.0-10.0); NEUTROPHILS % (AUTO) 73.9 % (45.0-75.0); PLATELET COUNT 189 K/UL (150-450); RED BLOOD COUNT 4.45 M/UL (4.70-6.10); RED CELL DISTRIBUTION WIDTH 12.8 % (11.6-14.8); WHITE BLOOD COUNT 10.8 K/UL (4.8-10.8)
[2018-08-24] MEDS: Theophylline ER 100mg ORAL SCH (08:40)
[2018-08-24] MEDS: MS Contin 15mg tab ORAL SCH ×2 (08:41→21:21)
[2018-08-24] MEDS: Furosemide 40mg tab ORAL SCH (08:41)
[2018-08-24] MEDS: Heparin 5000 units/ml inj SUBQ SCH ×2 (08:42→21:24)
--- NOTE | 2018-08-24 08:51 | General Progress Note ---
Assessment/Plan Assessment/Plan (1) Lumbar DDD (2) Lumbar Spondylosis (3) Lumbar Radiculopathy (4) Morbid Obesity (5) Right knee pain (6) Right knee OA h/o ORIF Patient will be continued on Morphine ER and Dilaudid D/w Dr. Magaña and he concurred. Subjective Date patient seen: Aug 24, 2018 Time patient seen: 07:30 - am Allergies: Coded Allergies: ASPIRIN (Verified Allergy, Unknown, 07/14/18) KETOROLAC (Verified Allergy, Unknown, 07/14/18) PENICILLINS (Verified Allergy, Unknown, 07/14/18) Subjective REVIEW OF SYSTEMS: Denies rash, fever, chills, sweating, dizziness, drowsiness, blurred vision, sore throat, change in weight. No nausea, vomiting, diarrhea, or blood in the stool or urine. No bowel or bladder incontinence. No dysuria. He is complaining of low back pain and right lower extremity pain. SUBJECTIVE: Patient continues to c/o pain which was not tolerated on the Dilaudid 1mg and it was increased to 2mg which he says has been more effective in reducing his pain. Objective Last 24 Hour Vital Signs Date Time Temp Pulse Resp B/P (MAP) Pulse Ox O2 Delivery O2 Flow Rate FiO2 08/24/18 04:00 97.8 89 18 117/73 (88) 97 08/24/18 04:00 91 08/24/18 03:51 71 20 96 Room Air 21 08/24/18 03:40 77 22 96 Room Air 21 08/24/18 00:00 97.7 72 19 136/90 (105) 95 08/24/18 00:00 81 08/23/18 21:00 Room Air 08/23/18 20:55 79 22 97 Room Air 21 08/23/18 20:45 60 22 95 Room Air 21 08/23/18 20:40 60 22 Room Air 21 08/23/18 20:00 74 08/23/18 20:00 98.1 71 18 146/82 (103) 95 08/23/18 16:00 97.2 75 21 111/59 (76) 96 08/23/18 16:00 75 08/23/18 12:00 97.7 93 18 134/79 (97) 100 08/23/18 12:00 77 08/23/18 09:00 Room Air Intake and Output 08/23/18 08/24/18 19:00 07:00 Intake Total 1800 ml Balance 1800 ml Intake Oral 1800 ml # Voids 3 Laboratory Tests 08/24/18 06:10: Sodium Level [Pending], Potassium Level [Pending], Chloride Level [Pending], Carbon Dioxide Level [Pending], Blood Urea Nitrogen [Pending], Creatinine [ Pending], Estimat Glomerular Filtration Rate [Pending], Glucose Level [Pending] , Calcium Level [Pending], Troponin I 0.016 08/24/18 08:05: White Blood Count 10.8, Red Blood Count 4.45L, Hemoglobin 14.8, Hematocrit 44.5 , Mean Corpuscular Volume 100H, Mean Corpuscular Hemoglobin 33.2H, Mean Corpuscular Hemoglobin Concent 33.2, Red Cell Distribution Width 12.8, Platelet Count 189, Mean Platelet Volume 5.9L, Neutrophils (%) (Auto) 73.9, Lymphocytes ( %) (Auto) 20.3, Monocytes (%) (Auto) 4.9, Eosinophils (%) (Auto) 0.5, Basophils (%) (Auto) 0.5 Height (Feet): 5 Height (Inches): 11.00 Weight (Pounds): 488 Objective GENERAL: Alert, awake, and oriented x3. LUNGS: Decreased breath sounds bilaterally. HEART: S1 and S2, regular. ABDOMEN: Obese, tender ness to palpation with skin changes noted. EXTREMITIES: No cyanosis. No clubbing. No edema. NEURO: No Focal deficits. Eliezer Nicole Aug 24, 2018 08:51
[2018-08-24 09:12] LABS: ANION GAP 11 mmol/L (5-15); BLOOD UREA NITROGEN 26 mg/dL (7-18); CALCIUM 8.6 MG/DL (8.5-10.1); CARBON DIOXIDE 25 MMOL/L (21-32); CHLORIDE 100 MMOL/L (98-107); CREATININE 1.1 MG/DL (0.55-1.30); POTASSIUM 5.2 MMOL/L (3.5-5.1); SODIUM 136 MMOL/L (136-145)
--- NOTE | 2018-08-24 10:17 | NUR ---
NURSE NOTES: dr ventura made aware that patient is requesting IV lasix,20mg IV q12h. patient stated that oral lasix is not working for him. dr ventura ordered IV lasix 20mg q12H. will carry out.
--- NOTE | 2018-08-24 11:52 | Pulmonology Progress Note ---
Assessment/Plan Problems: (1) ACS (acute coronary syndrome) (2) COPD (chronic obstructive pulmonary disease) (3) Right heart failure (4) Abdominal pannus (5) ADALBERTO (obstructive sleep apnea) (6) Seizures (7) Morbid obesity Assessment/Plan Dr. Roberts will do the abdominal surgery once pt is medically clear. Respiratory treatment bipap prn at night cardiology f/u serial ekg, troponin Plastic surgeon to see symptomatic treatment dvt prophylaxis titrate fio2 to saturation of 92% Subjective ROS Limited/Unobtainable: Yes Allergies: Coded Allergies: ASPIRIN (Verified Allergy, Unknown, 07/14/18) KETOROLAC (Verified Allergy, Unknown, 07/14/18) PENICILLINS (Verified Allergy, Unknown, 07/14/18) Objective Last 24 Hour Vital Signs Date Time Temp Pulse Resp B/P (MAP) Pulse Ox O2 Delivery O2 Flow Rate FiO2 08/24/18 09:40 97.2 08/24/18 09:11 97.2 08/24/18 09:00 Room Air 08/24/18 08:18 86 17 Room Air 21 08/24/18 08:00 97.2 86 16 151/65 (93) 98 08/24/18 07:30 71 08/24/18 04:00 97.8 89 18 117/73 (88) 97 08/24/18 04:00 91 08/24/18 03:51 71 20 96 Room Air 21 08/24/18 03:40 77 22 96 Room Air 21 08/24/18 00:00 97.7 72 19 136/90 (105) 95 08/24/18 00:00 81 08/23/18 21:00 Room Air 08/23/18 20:55 79 22 97 Room Air 21 08/23/18 20:45 60 22 95 Room Air 21 08/23/18 20:40 60 22 Room Air 21 08/23/18 20:00 74 08/23/18 20:00 98.1 71 18 146/82 (103) 95 08/23/18 16:00 97.2 75 21 111/59 (76) 96 08/23/18 16:00 75 08/23/18 12:00 97.7 93 18 134/79 (97) 100 08/23/18 12:00 77 Intake and Output 08/23/18 08/24/18 19:00 07:00 Intake Total 1800 ml Balance 1800 ml Intake Oral 1800 ml # Voids 3 General Appearance: WD/WN HEENT: normocephalic, anicteric Respiratory/Chest: chest wall non-tender, normal breath sounds Cardiovascular: normal peripheral pulses, regular rhythm Abdomen: soft, non tender, other - large pannus Extremities: no cyanosis Neurologic/Psychiatric: medical anthropology director II-XII grossly normal, other Microbiology Date/Time Source Procedure Growth Status 08/22/18 18:24 Nasal Nares MRSA Culture - Final NO METHICILLIN RESISTANT STAPH AUREUS... Complete 08/22/18 18:24 Rectum VRE Culture - Final NO VANCOMYCIN RESISTANT ENTEROCOCCUS ... Complete 08/22/18 18:24 Rectum - Final NO CARBAPENEM-RESISTANT ENTEROBACTERI... Complete Laboratory Tests 08/24/18 06:10: Sodium Level 136, Potassium Level 5.2H, Chloride Level 100, Carbon Dioxide Level 25, Anion Gap 11, Blood Urea Nitrogen 26H, Creatinine 1.1, Estimat Glomerular Filtration Rate > 60, Glucose Level 104, Calcium Level 8.6, Troponin I 0.016 08/24/18 08:05: White Blood Count 10.8, Red Blood Count 4.45L, Hemoglobin 14.8, Hematocrit 44.5 , Mean Corpuscular Volume 100H, Mean Corpuscular Hemoglobin 33.2H, Mean Corpuscular Hemoglobin Concent 33.2, Red Cell Distribution Width 12.8, Platelet Count 189, Mean Platelet Volume 5.9L, Neutrophils (%) (Auto) 73.9, Lymphocytes ( %) (Auto) 20.3, Monocytes (%) (Auto) 4.9, Eosinophils (%) (Auto) 0.5, Basophils (%) (Auto) 0.5 Current Medications Medications (Trade) Dose Ordered Sig/Luis Route PRN Reason Start Time Stop Time Status Last Admin Dose Admin Acetaminophen (Tylenol) 650 mg Q4H PRN ORAL FEVER 08/22/18 19:45 09/21/18 19:44 Acetaminophen/ Hydrocodone Bitart ([place] 10/325) 1 tab Q4H PRN ORAL For Pain 08/22/18 19:45 08/29/18 19:44 Albuterol/ Ipratropium (Albuterol/ Ipratropium) 3 ml Q4H PRN HHN Shortness of Breath 08/22/18 19:45 08/27/18 19:44 08/24/18 03:40 Atorvastatin Calcium (Lipitor) 80 mg BEDTIME ORAL 08/22/18 21:00 09/21/18 20:59 08/23/18 20:38 Clopidogrel Bisulfate (Plavix) 75 mg DAILY ORAL 08/23/18 09:00 09/22/18 08:59 08/24/18 08:39 Diltiazem HCl (Cardizem) 10 mg Q1H PRN IV heart rate more than 120, 08/22/18 19:45 09/21/18 19:44 Enalaprilat (Vasotec) 2.5 mg Q6H PRN IV sbp more than 160 08/22/18 19:45 09/21/18 19:44 Furosemide (Lasix) 20 mg EVERY 12 HOURS IV 08/24/18 21:00 09/23/18 20:59 Gabapentin (Neurontin) 600 mg THREE TIMES A DAY ORAL 08/23/18 09:00 09/22/18 08:59 08/24/18 08:41 Heparin Sodium (Porcine) (Heparin 5000 units/ml) 5,000 units EVERY 12 HOURS SUBQ 08/22/18 21:00 09/21/18 20:59 08/24/18 08:42 Hydromorphone HCl (Dilaudid) 3 mg Q4H PRN IVP Severe Pain (Pain Scale 7-10) 08/24/18 09:04 08/30/18 09:03 08/24/18 09:10 Morphine Sulfate (MS Contin) 15 mg Q12HR ORAL 08/23/18 09:00 08/30/18 08:59 08/24/18 08:41 Nitroglycerin (Ntg) 0.4 mg Q5M PRN SL Prn Chest Pain 08/22/18 19:45 09/21/18 19:44 Ondansetron HCl (Zofran) 4 mg Q6H PRN IVP Nausea & Vomiting 08/22/18 19:45 09/21/18 19:44 Polyethylene Glycol (Miralax) 17 gm DAILYPRN PRN ORAL Constipation 08/22/18 19:45 09/21/18 19:44 Temazepam (Restoril) 15 mg HSPRN PRN ORAL Insomnia 08/22/18 19:45 08/29/18 19:44 Theophylline (George-Dur) 100 mg DAILY ORAL 08/23/18 09:00 09/22/18 08:59 08/24/18 08:40 Trazodone HCl (Desyrel) 100 mg BEDTIME ORAL 08/24/18 21:00 09/23/18 20:59 Bill Dixon MD Aug 24, 2018 11:52
[2018-08-24 12:00] VITALS: BP 129/55
--- NOTE | 2018-08-24 13:56 | General Progress Note ---
Assessment/Plan Problem List: (1) Peripheral edema ICD Codes: R60.9 - Edema, unspecified SNOMED: 807988494 (2) COPD (chronic obstructive pulmonary disease) ICD Codes: J44.9 - Chronic obstructive pulmonary disease, unspecified SNOMED: 49622388 Qualifiers: Qualified Codes: J44.9 - Chronic obstructive pulmonary disease, unspecified (3) Leg pain ICD Codes: M79.606 - Pain in leg, unspecified SNOMED: 33088074 (4) Morbid obesity ICD Codes: E66.01 - Morbid (severe) obesity due to excess calories SNOMED: 851720770 (5) Seizures ICD Codes: R56.9 - Unspecified convulsions SNOMED: 21708949 (6) Right heart failure ICD Codes: I50.810 - Right heart failure, unspecified SNOMED: 837773677 (7) ACS (acute coronary syndrome) ICD Codes: I24.9 - Acute ischemic heart disease, unspecified SNOMED: 477768268 (8) Abdominal pannus ICD Codes: E65 - Localized adiposity SNOMED: 8106289504906 Status: unchanged Assessment/Plan o2 pulm tx prn seizure pain control pt diet cbc bmp am Subjective Constitutional: Reports: weakness Respiratory: Reports: shortness of breath Allergies: Coded Allergies: ASPIRIN (Verified Allergy, Unknown, 07/14/18) KETOROLAC (Verified Allergy, Unknown, 07/14/18) PENICILLINS (Verified Allergy, Unknown, 07/14/18) All Systems: reviewed and negative except above Subjective sitting sob Objective Last 24 Hour Vital Signs Date Time Temp Pulse Resp B/P (MAP) Pulse Ox O2 Delivery O2 Flow Rate FiO2 08/24/18 12:00 98.1 55 16 129/55 (79) 98 08/24/18 11:30 94 08/24/18 09:40 97.2 08/24/18 09:11 97.2 08/24/18 09:00 Room Air 08/24/18 08:18 86 17 Room Air 21 08/24/18 08:00 97.2 86 16 151/65 (93) 98 08/24/18 07:30 71 08/24/18 04:00 97.8 89 18 117/73 (88) 97 08/24/18 04:00 91 08/24/18 03:51 71 20 96 Room Air 21 08/24/18 03:40 77 22 96 Room Air 21 08/24/18 00:00 97.7 72 19 136/90 (105) 95 08/24/18 00:00 81 08/23/18 21:00 Room Air 08/23/18 20:55 79 22 97 Room Air 21 08/23/18 20:45 60 22 95 Room Air 21 08/23/18 20:40 60 22 Room Air 21 08/23/18 20:00 74 08/23/18 20:00 98.1 71 18 146/82 (103) 95 08/23/18 16:00 97.2 75 21 111/59 (76) 96 08/23/18 16:00 75 Intake and Output 08/23/18 08/24/18 19:00 07:00 Intake Total 1800 ml Balance 1800 ml Intake Oral 1800 ml # Voids 3 Laboratory Tests 08/24/18 06:10: Sodium Level 136, Potassium Level 5.2H, Chloride Level 100, Carbon Dioxide Level 25, Anion Gap 11, Blood Urea Nitrogen 26H, Creatinine 1.1, Estimat Glomerular Filtration Rate > 60, Glucose Level 104, Calcium Level 8.6, Troponin I 0.016 08/24/18 08:05: White Blood Count 10.8, Red Blood Count 4.45L, Hemoglobin 14.8, Hematocrit 44.5 , Mean Corpuscular Volume 100H, Mean Corpuscular Hemoglobin 33.2H, Mean Corpuscular Hemoglobin Concent 33.2, Red Cell Distribution Width 12.8, Platelet Count 189, Mean Platelet Volume 5.9L, Neutrophils (%) (Auto) 73.9, Lymphocytes ( %) (Auto) 20.3, Monocytes (%) (Auto) 4.9, Eosinophils (%) (Auto) 0.5, Basophils (%) (Auto) 0.5 Height (Feet): 5 Height (Inches): 11.00 Weight (Pounds): 488 General Appearance: lethargic EENT: normal ENT inspection Neck: normal alignment Cardiovascular: normal peripheral pulses, normal rate, regular rhythm Respiratory/Chest: chest wall non-tender, decreased breath sounds Abdomen: normal bowel sounds, non tender, soft, distended Edema: 1+ Arm (L), 1+ Arm (R), 1+ Leg (L), 1+ Leg (R), 1+ Pedal (L), 1+ Pedal ( R), 1+ Generalized Edema: trace edema Neurologic: responsive, motor weakness Skin: normal pigmentation, warm/dry Ernesto Nicole DO Aug 24, 2018 13:56
--- NOTE | 2018-08-24 14:36 | NUR ---
P.T Note: P.T evaluation completed and treatment initiated. Please refer to P.T evaluation for current functional status. Pt is limited mostly by generalized weakness, pain and swelling of abdominal region and B lower legs and feet limiting ability stand, transfer and ambulate. Pt currently required MIN A x 1 for bed mobility and transfers. Pt was only able to stand using the FWW but unable to take steps due to the above reasons. Skilled P.T services is warranted to improve strength, balance and endurance to increase functional independence and safety. Pt is cleared for OOB activities with nursing using the FWW. Recommend return to prior living arrangement with continued P.T.
[2018-08-24 16:00] VITALS: BP 123/68
--- NOTE | 2018-08-24 16:15 | Consultation ---
DATE OF CONSULTATION: 08/24/2018 NOTE: "POOR AUDIO QUALITY" CONSULTING PHYSICIAN: Laney Mcghee M.D. HISTORY OF PRESENT ILLNESS: The patient is a male patient who was admitted to the hospital, 52-year-old male patient who came in because of COPD. The patient was transferred from [facility] where he has extreme mood lability, confusion, disorganized thought process, and some anxiety . That is why, daily psychiatric consultation was requested for this patient. ALLERGIES: As far as this patient's allergy history, he has allergies to penicillin and aspirin. PAST MEDICAL HISTORY: He has history of seizure disorder, peripheral edema, COPD, acute coronary syndrome, and right heart failure as well. MEDICATIONS: As far as his psychotropic medications on admission, the patient is currently on Neurontin at a dose of 600 mg three times a day. He was also on trazodone in the past. SUBSTANCE ABUSE HISTORY: Denies any significant drug or alcohol use. FAMILY PSYCHIATRIC HISTORY: Denies. PAIN ASSESSMENT: 10/04 pain. DEVELOPMENTAL PROBLEMS: Denies. PSYCHIATRIC HISTORY: History of major depressive disorder. He stated he has had previous psychiatric admissions, but would not give me the details. STRENGTHS: He is motivated to get better and he has a place to live. WEAKNESSES AND LIABILITIES: He is impulsive and has minimal support system. MENTAL STATUS EXAMINATION: This is a 52-year-old male. His appearance is disheveled. His attitude is irritable and agitated. His affect is guarded and restricted. His intellect is poor because he does not know current events, does not know the last 4 presidents. Mood, depressed and anxious. Motor activity, psychomotor agitation. Attention span is poor because he cannot do serial 7's or spell world backwards. Orientation x2, he is oriented to person and place, not to time or situation. Speech is low volume and slurred. Thought process, disorganized and illogical. Thought content, he has auditory hallucinations and paranoid delusions. Perception is poor because he has perceptual disturbances that people are to get him. Abstract reasoning is poor because he does not understand proverbs. He only has concrete thinking. Insight is poor because he does not understand that he has mood disorder. Judgment is poor because he does not accept the consequences for his actions. Denies any current suicidal or homicidal thoughts. As far as his short-term memory, 3/3 word recall after 5 minutes delay with good short-term memory. Long-term memory is intact based on his knowledge of long-term events in his life such as high school that we went to. DIAGNOSIS: Major depressive disorder, mild, recurrent without psychotic features, rule out bipolar 2. PLAN: Continue treatment with Neurontin. He will also have trazodone 100 mg nightly for insomnia. Provided him with 20 minutes of cognitive behavioral therapy to help him identify his automatic negative thoughts and help him convert those negative thoughts to more positive thoughts to reduce depression, anxiety, and suicidality. Twenty minutes of cognitive behavioral therapy provided. Chart was reviewed and discussed with staff. Seen and assessed in his room. Laney Mcghee M.D. DR: MIREILLE JOB#: [id number] CC:
--- NOTE | 2018-08-24 18:12 | NUR ---
NURSE NOTES: LEFT A MESSAGE TO DR NAVARRO REGARDING K LEVEL OF 5.2. AWAITNG CALLBACK AND NEW ORDER OF THSI TIME.
[2018-08-24] MEDS ORDERED: Sodium Polystyrene Sulfonate 15gm Powder ORAL SCH (18:19)
--- NOTE | 2018-08-24 19:19 | NUR ---
HAND-OFF: Report given to farhat powers.
--- NOTE | 2018-08-24 19:20 | NUR ---
NURSE NOTES: Got report from Patricia HINOJOSA. Pt in stable condition. Denies any pain at the moment. No s/s of distress or discomfort noted. Pt resting in bed comfortably. Bed in low and locked position, call light within reach, bedside table within reach. continue to monitor.
[2018-08-24 20:00] VITALS: BP 115/62
[2018-08-24] MEDS: Atorvastatin 80mg tab ORAL SCH (21:21)
[2018-08-24] MEDS: TraZODone 100mg tab ORAL SCH (21:21)
--- NOTE | 2018-08-24 23:48 | Cardiology Progress Note ---
Assessment/Plan Assessment/Plan 1. Most likely noncardiac chest pain. Electrocardiography shows sinus rhythm with premature ventricular complexes with no acute ST and T-wave abnormalities. AMI is ruled out by negative CE. Beta-natriuretic peptide is also within normal limits. Echo reveals normal LV systolic and diastolic function with LVEF at 55% and normal pulmonary artery pressure. 2. History of chronic obstructive pulmonary disease. 3. Obesity hypoventilation syndrome. 4. History of seizure disorder. 5. History of hypertension. 6. Morbid obesity with BMI of 52 and large pannus. The patient is clear for surgical removal with the risk of coronary artery events perioperatively estimated to be less than 1%. 7. Hyperlipidemia. Subjective Subjective Sinus rhythm at rate of 97. Objective Last 24 Hour Vital Signs Date Time Temp Pulse Resp B/P (MAP) Pulse Ox O2 Delivery O2 Flow Rate FiO2 08/24/18 23:22 96 18 93 Room Air 21 08/24/18 23:09 97 20 95 Room Air 21 08/24/18 22:00 98.2 08/24/18 22:00 98.2 08/24/18 21:00 Room Air 08/24/18 20:42 83 18 Room Air 08/24/18 20:00 98.2 80 20 115/62 (79) 96 08/24/18 20:00 95 08/24/18 16:00 97.1 94 16 123/68 (86) 94 08/24/18 16:00 93 08/24/18 14:10 94 17 99 Nasal Cannula 2.0 28 08/24/18 14:00 96 24 97 Nasal Cannula 3.0 32 08/24/18 12:00 98.1 55 16 129/55 (79) 98 08/24/18 11:30 94 08/24/18 09:00 Room Air 08/24/18 08:18 86 17 Room Air 08/24/18 08:00 97.2 86 16 151/65 (93) 98 08/24/18 07:30 71 08/24/18 04:00 97.8 89 18 117/73 (88) 97 08/24/18 04:00 91 08/24/18 03:51 71 20 96 Room Air 21 08/24/18 03:40 77 22 96 Room Air 08/24/18 00:00 97.7 72 19 136/90 (105) 95 08/24/18 00:00 81 Intake and Output 08/23/18 08/24/18 19:00 07:00 Intake Total 1800 ml Balance 1800 ml Intake Oral 1800 ml # Voids 3 2D Echo: LVEF 65%, Milkd LVH, Moderate SELAM, RVSP 25 mmHg Laboratory Tests Test 08/24/18 06:10 08/24/18 08:05 Sodium Level 136 MMOL/L (136-145) Potassium Level 5.2 MMOL/L (3.5-5.1) H Chloride Level 100 MMOL/L (98-107) Carbon Dioxide Level 25 MMOL/L (21-32) Anion Gap 11 mmol/L (5-15) Blood Urea Nitrogen 26 mg/dL (7-18) H Creatinine 1.1 MG/DL (0.55-1.30) Estimat Glomerular Filtration Rate > 60 mL/min (>60) Glucose Level 104 MG/DL (74-106) Calcium Level 8.6 MG/DL (8.5-10.1) Troponin I 0.016 ng/mL (0.000-0.056) White Blood Count 10.8 K/UL (4.8-10.8) Red Blood Count 4.45 M/UL (4.70-6.10) L Hemoglobin 14.8 G/DL (14.2-18.0) Hematocrit 44.5 % (42.0-52.0) Mean Corpuscular Volume 100 FL (80-99) H Mean Corpuscular Hemoglobin 33.2 PG (27.0-31.0) H Mean Corpuscular Hemoglobin Concent 33.2 G/DL (32.0-36.0) Red Cell Distribution Width 12.8 % (11.6-14.8) Platelet Count 189 K/UL (150-450) Mean Platelet Volume 5.9 FL (6.5-10.1) L Neutrophils (%) (Auto) 73.9 % (45.0-75.0) Lymphocytes (%) (Auto) 20.3 % (20.0-45.0) Monocytes (%) (Auto) 4.9 % (1.0-10.0) Eosinophils (%) (Auto) 0.5 % (0.0-3.0) Basophils (%) (Auto) 0.5 % (0.0-2.0) Microbiology Date/Time Source Procedure Growth Status 08/22/18 18:24 Nasal Nares MRSA Culture - Final NO METHICILLIN RESISTANT STAPH AUREUS... Complete 08/22/18 18:24 Rectum VRE Culture - Final NO VANCOMYCIN RESISTANT ENTEROCOCCUS ... Complete 08/22/18 18:24 Rectum - Final NO CARBAPENEM-RESISTANT ENTEROBACTERI... Complete Objective HEENT: Atraumatic and normocephalic. Anicteric. Pupils are equal, round, and reactive to light and accommodation. Extraocular muscles intact. NECK: JVP less than 5 cm. No carotid bruit. Carotid upstrokes 2+ bilaterally. CVS: Normal S1, S2. Regular rate and rhythm. No murmurs, gallops, or rubs. LUNGS: Diminished breath sounds bilaterally. ABDOMEN: Large pannus. Cannot appreciate hepatosplenomegaly. Positive bowel sounds. EXTREMITIES: There is no evidence of edema, clubbing, or cyanosis. Carlos Martins MD Aug 24, 2018 23:48
[2018-08-25] VITALS: BP 107/71
--- NOTE | 2018-08-25 03:15 | Consultation ---
DATE OF CONSULTATION: 08/23/2018 NOTE: POOR AUDIO PSYCHOTHERAPY CONSULTATION PROGRESS NOTE CONSULTING PHYSICIAN: Liu Jackman PsyD. TREATING ATTENDING PHYSICIAN: Ernesto Nicole D.O. HISTORY OF PRESENT ILLNESS: The patient is a 52-year-old male patient from [facility]. The patient has a history of mental illness including major depressive disorder. The patient has been labile in his mood and affect and confused, and for these reasons, he was referred for psychotherapeutic services. This clinician assessed the patient. The patient was restless, anxious, irritable, and agitated he was pointing to his stomach and he states that there is a mass in it. The patient has been extremely agitated, constantly asking for pain medications. He states he is in severe pain at this time. The patient denies suicidal or homicidal thoughts of ideation. Denies any auditory or visual hallucinations. He states that his frustration comes from his stomach pain and not being able to relieve it. The patient is cooperative with this clinician. PAST MEDICAL HISTORY: Includes history of COPD, edema, and right heart failure. ALLERGIES: The patient is allergic to penicillin and aspirin. SUBSTANCE ABUSE HISTORY: The patient denies history of alcohol use, illicit substance use, or smoking cigarettes. PSYCHIATRIC HISTORY: The patient has a history of major depression. The patient states that he also has a history of possible trauma and anxiety. SOCIAL HISTORY: The patient is a 52-year-old male patient. He is from [facility]. He states . Financially sustained through [facility]. MENTAL STATUS EXAMINATION: The patient is alert and oriented to person, place, and time. His mood is anxious. Affect is congruent. Thought process, disorganized negative and catastrophic . He has poor attention and concentration. He has poor insight, judgment, and impulse control. DIAGNOSIS: Major depressive disorder, recurrent, severe without psychotic features. PLAN: This clinician assessed the patient. Provided the patient with supportive psychotherapy addressing the patient's feelings of helplessness and severe anxiety and . Provided the patient with cognitive behavioral therapy today he is showing positive thinking strategy, positive coping skills negative and catastrophic in his thoughts psychoeducation negative and catastrophic . Continue with behavioral management. This clinician has reviewed the patient's chart. Discussed treatment with treatment team. Chronic nausea medication compliance . Liu Jackman PsyD. DR: Ozzy JOB#: [id number] CC:
[2018-08-25 04:00] VITALS: BP 149/80
--- NOTE | 2018-08-25 07:20 | NUR ---
NURSE NOTES: Received report form MICAELA Hernandez. Patient is resting in bed, in stable condition. No s/sx of SOB, breathing is even and unlabored. Denies any presence of pain or discomfort at this time. Bed is in lowest position, brakes engaged. Call light is kept within easy reach. Will continue to monitor patient.
--- NOTE | 2018-08-25 07:30 | NUR ---
HAND-OFF: Report given to oleg powers. endorsed plan of care.
[2018-08-25 08:00] VITALS: BP 135/87
[2018-08-25] MEDS: Theophylline ER 100mg ORAL SCH (08:09)
[2018-08-25] MEDS: MS Contin 15mg tab ORAL SCH ×2 (08:10→20:37)
[2018-08-25] MEDS: Heparin 5000 units/ml inj SUBQ SCH ×2 (08:10→20:37)
--- NOTE | 2018-08-25 10:24 | NUR ---
Social Work Patient requesting this Sw to provide IHSS information. Patient explains he realizes he needs to return to [facility] upon discharge, but has a goal to eventually there to live on his own (will apply for IHSS). Patient currently ambulatory to bathroom. Patient has a history of seizures (found on the floor) and was advised he cannot be on his own, needing SNF. This SW provided IHSS information.
[2018-08-25 12:00] VITALS: BP 103/59
[2018-08-25 12:13] LABS: BASOPHILS % (AUTO) 0.6 % (0.0-2.0); EOSINOPHILS % (AUTO) 0.7 % (0.0-3.0); HEMATOCRIT 43.3 % (42.0-52.0); HEMOGLOBIN 14.3 G/DL (14.2-18.0); LYMPHOCYTES % (AUTO) 27.9 % (20.0-45.0); MEAN CORPUSCULAR VOLUME 99 FL (80-99); MONOCYTES % (AUTO) 6.6 % (1.0-10.0); NEUTROPHILS % (AUTO) 64.2 % (45.0-75.0); PLATELET COUNT 171 K/UL (150-450); RED BLOOD COUNT 4.36 M/UL (4.70-6.10); RED CELL DISTRIBUTION WIDTH 12.7 % (11.6-14.8); WHITE BLOOD COUNT 7.6 K/UL (4.8-10.8)
[2018-08-25 12:21] LABS: ANION GAP 4 mmol/L (5-15); BLOOD UREA NITROGEN 25 mg/dL (7-18); CALCIUM 8.4 MG/DL (8.5-10.1); CARBON DIOXIDE 34 MMOL/L (21-32); CHLORIDE 102 MMOL/L (98-107); CREATININE 1.1 MG/DL (0.55-1.30); POTASSIUM 3.7 MMOL/L (3.5-5.1); SODIUM 140 MMOL/L (136-145)
--- NOTE | 2018-08-25 12:45 | Pulmonology Progress Note ---
Assessment/Plan Problems: (1) ACS (acute coronary syndrome) (2) COPD (chronic obstructive pulmonary disease) (3) Right heart failure (4) Abdominal pannus (5) ADALBERTO (obstructive sleep apnea) (6) Seizures (7) Morbid obesity Assessment/Plan Dr. Roberts will do the abdominal surgery once pt is medically clear. Respiratory treatment bipap prn at night cardiology f/u serial ekg, troponin Plastic surgeon agreed to do the surgery in one month symptomatic treatment dvt prophylaxis titrate fio2 to saturation of 92% Subjective ROS Limited/Unobtainable: No Constitutional: Reports: no symptoms HEENT: Repors: no symptoms Respiratory: Reports: no symptoms Cardiovascular: Reports: no symptoms Allergies: Coded Allergies: ASPIRIN (Verified Allergy, Unknown, 07/14/18) KETOROLAC (Verified Allergy, Unknown, 07/14/18) PENICILLINS (Verified Allergy, Unknown, 07/14/18) Objective Last 24 Hour Vital Signs Date Time Temp Pulse Resp B/P (MAP) Pulse Ox O2 Delivery O2 Flow Rate FiO2 08/25/18 09:00 Room Air 08/25/18 06:56 97.5 08/25/18 04:00 89 08/25/18 04:00 97.5 86 20 149/80 (103) 97 08/25/18 00:00 86 08/25/18 00:00 98.1 92 20 107/71 (83) 95 08/24/18 23:22 96 18 93 Room Air 21 08/24/18 23:09 97 20 95 Room Air 21 08/24/18 22:00 98.2 08/24/18 21:00 Room Air 08/24/18 20:42 83 18 Room Air 21 08/24/18 20:00 98.2 80 20 115/62 (79) 96 08/24/18 20:00 95 08/24/18 16:00 97.1 94 16 123/68 (86) 94 08/24/18 16:00 93 08/24/18 14:10 94 17 99 Nasal Cannula 2.0 28 08/24/18 14:00 96 24 97 Nasal Cannula 3.0 32 Intake and Output 08/24/18 08/25/18 19:00 07:00 Intake Total 720 ml Balance 720 ml Intake Oral 720 ml # Voids 2 4 General Appearance: WD/WN HEENT: normocephalic, atraumatic Respiratory/Chest: chest wall non-tender, lungs clear Cardiovascular: normal peripheral pulses, normal rate Abdomen: normal bowel sounds, soft, non tender Genitourinary: normal external genitalia Extremities: no cyanosis 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 Complete 08/22/18 18:24 Rectum VRE Culture - Final NO VANCOMYCIN RESISTANT ENTEROCOCCUS ... Complete 08/22/18 18:24 Rectum - Final NO CARBAPENEM-RESISTANT ENTEROBACTERI... Complete Laboratory Tests 08/25/18 12:00: White Blood Count 7.6, Red Blood Count 4.36L, Hemoglobin 14.3, Hematocrit 43.3, Mean Corpuscular Volume 99, Mean Corpuscular Hemoglobin 32.8H, Mean Corpuscular Hemoglobin Concent 33.0, Red Cell Distribution Width 12.7, Platelet Count 171, Mean Platelet Volume 5.3L, Neutrophils (%) (Auto) 64.2, Lymphocytes (%) (Auto) 27.9, Monocytes (%) (Auto) 6.6, Eosinophils (%) (Auto) 0.7, Basophils (%) (Auto ) 0.6, Sodium Level 140, Potassium Level 3.7, Chloride Level 102, Carbon Dioxide Level 34H, Anion Gap 4L, Blood Urea Nitrogen 25H, Creatinine 1.1, Estimat Glomerular Filtration Rate > 60, Glucose Level 101, Calcium Level 8.4L Current Medications Medications (Trade) Dose Ordered Sig/Luis Route PRN Reason Start Time Stop Time Status Last Admin Dose Admin Acetaminophen (Tylenol) 650 mg Q4H PRN ORAL FEVER 08/22/18 19:45 09/21/18 19:44 Acetaminophen/ Hydrocodone Bitart ([place] 10/325) 1 tab Q4H PRN ORAL For Pain 08/22/18 19:45 08/29/18 19:44 Albuterol/ Ipratropium (Albuterol/ Ipratropium) 3 ml Q4H PRN HHN Shortness of Breath 08/22/18 19:45 08/27/18 19:44 08/24/18 23:09 Atorvastatin Calcium (Lipitor) 80 mg BEDTIME ORAL 08/22/18 21:00 09/21/18 20:59 08/24/18 21:21 Clopidogrel Bisulfate (Plavix) 75 mg DAILY ORAL 08/23/18 09:00 09/22/18 08:59 08/25/18 08:10 Diltiazem HCl (Cardizem) 10 mg Q1H PRN IV heart rate more than 120, 08/22/18 19:45 09/21/18 19:44 Enalaprilat (Vasotec) 2.5 mg Q6H PRN IV sbp more than 160 08/22/18 19:45 09/21/18 19:44 Furosemide (Lasix) 20 mg EVERY 12 HOURS IV 08/24/18 21:00 09/23/18 20:59 08/25/18 08:09 Gabapentin (Neurontin) 600 mg THREE TIMES A DAY ORAL 08/23/18 09:00 09/22/18 08:59 08/25/18 08:10 Heparin Sodium (Porcine) (Heparin 5000 units/ml) 5,000 units EVERY 12 HOURS SUBQ 08/22/18 21:00 09/21/18 20:59 08/24/18 21:24 Hydromorphone HCl (Dilaudid) 3 mg Q4H PRN IVP Severe Pain (Pain Scale 7-10) 08/24/18 09:04 08/30/18 09:03 08/25/18 10:36 Morphine Sulfate (MS Contin) 15 mg Q12HR ORAL 08/23/18 09:00 08/30/18 08:59 08/25/18 08:10 Nitroglycerin (Ntg) 0.4 mg Q5M PRN SL Prn Chest Pain 08/22/18 19:45 09/21/18 19:44 Ondansetron HCl (Zofran) 4 mg Q6H PRN IVP Nausea & Vomiting 08/22/18 19:45 09/21/18 19:44 Polyethylene Glycol (Miralax) 17 gm DAILYPRN PRN ORAL Constipation 08/22/18 19:45 09/21/18 19:44 Temazepam (Restoril) 15 mg HSPRN PRN ORAL Insomnia 08/22/18 19:45 08/29/18 19:44 Theophylline (George-Dur) 100 mg DAILY ORAL 08/23/18 09:00 09/22/18 08:59 08/25/18 08:09 Trazodone HCl (Desyrel) 100 mg BEDTIME ORAL 08/24/18 21:00 09/23/18 20:59 08/24/18 21:21 Bill Dixon MD Aug 25, 2018 12:45
[2018-08-25] MEDS ORDERED: Lidocaine 1% Plain 30 ml INJ PRN (13:15)
[2018-08-25] MEDS ORDERED: Heparin 2000 units/Ns 1000ml INJ PRN (13:15)
--- NOTE | 2018-08-25 13:17 | NUR ---
NURSE NOTES: Dr. Dixon at nurse station. Ordered peripherally inserted central catheter placement. Order entered, noted, and carried out. Will continue to monitor patient.
--- NOTE | 2018-08-25 13:18 | NUR ---
NURSE NOTES: Patient is alert and oriented x 4. Patient agreed for PICC placement and signed consent. Consent is in patient's chart. Noted.
--- NOTE | 2018-08-25 13:47 | General Progress Note ---
Assessment/Plan Problem List: (1) Peripheral edema ICD Codes: R60.9 - Edema, unspecified SNOMED: 451310112 (2) COPD (chronic obstructive pulmonary disease) ICD Codes: J44.9 - Chronic obstructive pulmonary disease, unspecified SNOMED: 60043013 Qualifiers: Qualified Codes: J44.9 - Chronic obstructive pulmonary disease, unspecified (3) Leg pain ICD Codes: M79.606 - Pain in leg, unspecified SNOMED: 22001684 (4) Morbid obesity ICD Codes: E66.01 - Morbid (severe) obesity due to excess calories SNOMED: 507623766 (5) Seizures ICD Codes: R56.9 - Unspecified convulsions SNOMED: 91826906 (6) Right heart failure ICD Codes: I50.810 - Right heart failure, unspecified SNOMED: 407249214 (7) ACS (acute coronary syndrome) ICD Codes: I24.9 - Acute ischemic heart disease, unspecified SNOMED: 289834177 (8) Abdominal pannus ICD Codes: E65 - Localized adiposity SNOMED: 1186983127778 Status: stable, progressing Assessment/Plan o2 pulm tx prn seizure pain control pt diet cbc bmp am Subjective Constitutional: Reports: weakness Allergies: Coded Allergies: ASPIRIN (Verified Allergy, Unknown, 07/14/18) KETOROLAC (Verified Allergy, Unknown, 07/14/18) PENICILLINS (Verified Allergy, Unknown, 07/14/18) All Systems: reviewed and negative except above Subjective sitting sob Objective Last 24 Hour Vital Signs Date Time Temp Pulse Resp B/P (MAP) Pulse Ox O2 Delivery O2 Flow Rate FiO2 08/25/18 09:00 Room Air 08/25/18 06:56 97.5 08/25/18 04:00 89 08/25/18 04:00 97.5 86 20 149/80 (103) 97 08/25/18 00:00 86 08/25/18 00:00 98.1 92 20 107/71 (83) 95 08/24/18 23:22 96 18 93 Room Air 21 08/24/18 23:09 97 20 95 Room Air 21 08/24/18 22:00 98.2 08/24/18 21:00 Room Air 08/24/18 20:42 83 18 Room Air 21 08/24/18 20:00 98.2 80 20 115/62 (79) 96 1/28/19 20:00 95 08/24/18 16:00 97.1 94 16 123/68 (86) 94 08/24/18 16:00 93 08/24/18 14:10 94 17 99 Nasal Cannula 2.0 28 08/24/18 14:00 96 24 97 Nasal Cannula 3.0 32 Intake and Output 08/24/18 08/25/18 19:00 07:00 Intake Total 720 ml Balance 720 ml Intake Oral 720 ml # Voids 2 4 Laboratory Tests 08/25/18 12:00: White Blood Count 7.6, Red Blood Count 4.36L, Hemoglobin 14.3, Hematocrit 43.3, Mean Corpuscular Volume 99, Mean Corpuscular Hemoglobin 32.8H, Mean Corpuscular Hemoglobin Concent 33.0, Red Cell Distribution Width 12.7, Platelet Count 171, Mean Platelet Volume 5.3L, Neutrophils (%) (Auto) 64.2, Lymphocytes (%) (Auto) 27.9, Monocytes (%) (Auto) 6.6, Eosinophils (%) (Auto) 0.7, Basophils (%) (Auto ) 0.6, Sodium Level 140, Potassium Level 3.7, Chloride Level 102, Carbon Dioxide Level 34H, Anion Gap 4L, Blood Urea Nitrogen 25H, Creatinine 1.1, Estimat Glomerular Filtration Rate > 60, Glucose Level 101, Calcium Level 8.4L Height (Feet): 5 Height (Inches): 11.00 Weight (Pounds): 489 General Appearance: lethargic EENT: normal ENT inspection Neck: normal alignment Cardiovascular: normal peripheral pulses, normal rate, regular rhythm Respiratory/Chest: chest wall non-tender, lungs clear, normal breath sounds Abdomen: normal bowel sounds, non tender, soft Extremities: normal inspection Edema: 1+ Arm (L), 1+ Arm (R), 1+ Leg (L), 1+ Leg (R), 1+ Pedal (L), 1+ Pedal ( R), 1+ Generalized Edema: trace edema Neurologic: responsive, motor weakness Skin: normal pigmentation, warm/dry Ernesto Nicoleg DO Aug 25, 2018 13:47
--- NOTE | 2018-08-25 15:53 | Diagnostic Imaging Report ---
Indications: Needs long-term IV access Technique: Ultrasound confirms patent compressible left basilic vein. Total sterile technique, including sterile probe cover and sterile gel, hat, mask, sterile gown, large sterile drape, and preparation with 2% chlorhexidine utilized. Local anesthesia with 1% lidocaine. Under real-time ultrasound guidance, puncture basilic vein using 21-gauge needle, documented and archived, passage 0.018 guidewire under direct fluoroscopy, which was used to determine appropriate catheter length, exchange for 5 Latvian peel-away sheath. 5 [place]vian dual-lumen power PICC cut to 52 cm. It was inserted through the peel-away sheath. Peel-away sheath and guidewire removed. Catheter fixed to the skin. Both catheter ports aspirated and flushed. Patient tolerated procedure well, without immediate complication. Digital radiograph documents satisfactory catheter tip position, at the cavoatrial junction. Total fluoroscopy time 18.9 seconds. Total dose area product 6.26 mGy Total number of images: 1 Impression: Successful placement of left arm PICC under sonographic and fluoroscopic guidance, as described above.
[2018-08-25 16:00] VITALS: BP 131/70
--- NOTE | 2018-08-25 16:37 | NUR ---
NURSE NOTES: Informed Dr. Dixon that there is no "ok to use PICC line" order, informed Dr. Dixon that there is a chest x-ray confirming "successful placement of left PICC." Dr. Dixon acknowledged and ordered "ok to use PICC line." Order entered, noted, and carried out. Will continue to monitor patient.
--- NOTE | 2018-08-25 16:59 | General Progress Note ---
Assessment/Plan Assessment/Plan (1) Lumbar DDD (2) Lumbar Spondylosis (3) Lumbar Radiculopathy (4) Morbid Obesity (5) Right knee pain (6) Right knee OA h/o ORIF Patient will be continued on Morphine ER and Dilaudid D/w Dr. Magaña and he concurred. Subjective Date patient seen: Aug 25, 2018 Time patient seen: 04:00 - pm Allergies: Coded Allergies: ASPIRIN (Verified Allergy, Unknown, 07/14/18) KETOROLAC (Verified Allergy, Unknown, 07/14/18) PENICILLINS (Verified Allergy, Unknown, 07/14/18) Subjective REVIEW OF SYSTEMS: Denies rash, fever, chills, sweating, dizziness, drowsiness, blurred vision, sore throat, change in weight. No nausea, vomiting, diarrhea, or blood in the stool or urine. No bowel or bladder incontinence. No dysuria. He is complaining of low back pain and right lower extremity pain. SUBJECTIVE: Patient pain continues to be severe and Dilaudid was again increased now at 3mg, pain is better tolerated on the regimen. Objective Last 24 Hour Vital Signs Date Time Temp Pulse Resp B/P (MAP) Pulse Ox O2 Delivery O2 Flow Rate FiO2 08/25/18 16:00 98.2 91 20 131/70 (90) 95 08/25/18 12:00 97.8 92 20 103/59 (74) 92 08/25/18 09:00 Room Air 08/25/18 08:00 97.7 92 20 135/87 (103) 95 08/25/18 08:00 105 08/25/18 06:56 97.5 08/25/18 04:00 89 08/25/18 04:00 97.5 86 20 149/80 (103) 97 08/25/18 00:00 86 08/25/18 00:00 98.1 92 20 107/71 (83) 95 08/24/18 23:22 96 18 93 Room Air 21 08/24/18 23:09 97 20 95 Room Air 21 08/24/18 22:00 98.2 08/24/18 21:00 Room Air 08/24/18 20:42 83 18 Room Air 21 08/24/18 20:00 98.2 80 20 115/62 (79) 96 08/24/18 20:00 95 Intake and Output 08/24/18 08/25/18 19:00 07:00 Intake Total 720 ml Balance 720 ml Intake Oral 720 ml # Voids 2 4 Laboratory Tests 08/25/18 12:00: White Blood Count 7.6, Red Blood Count 4.36L, Hemoglobin 14.3, Hematocrit 43.3, Mean Corpuscular Volume 99, Mean Corpuscular Hemoglobin 32.8H, Mean Corpuscular Hemoglobin Concent 33.0, Red Cell Distribution Width 12.7, Platelet Count 171, Mean Platelet Volume 5.3L, Neutrophils (%) (Auto) 64.2, Lymphocytes (%) (Auto) 27.9, Monocytes (%) (Auto) 6.6, Eosinophils (%) (Auto) 0.7, Basophils (%) (Auto ) 0.6, Sodium Level 140, Potassium Level 3.7, Chloride Level 102, Carbon Dioxide Level 34H, Anion Gap 4L, Blood Urea Nitrogen 25H, Creatinine 1.1, Estimat Glomerular Filtration Rate > 60, Glucose Level 101, Calcium Level 8.4L Height (Feet): 5 Height (Inches): 11.00 Weight (Pounds): 489 Objective GENERAL: Alert, awake, and oriented x3. LUNGS: Decreased breath sounds bilaterally. HEART: S1 and S2, regular. ABDOMEN: Obese, tender ness to palpation with skin changes noted. EXTREMITIES: No cyanosis. No clubbing. No edema. NEURO: No Focal deficits. Eliezer Nicole Aug 25, 2018 16:59
[2018-08-25] MEDS: Albuterol/Ipratropium 3ml neb HHN PRN (18:04)
--- NOTE | 2018-08-25 20:03 | NUR ---
NURSE NOTES: Received pt from MICAELA Li. Pt awake, alert and complaining of pain. Bed in lowest position. Call light within reach. Will continue to monitor.
[2018-08-25] MEDS: Atorvastatin 80mg tab ORAL SCH (20:30)
[2018-08-25] MEDS: Dyna-Hex 2% Top Sol 2oz TOPIC SCH (20:31)
[2018-08-25] MEDS: TraZODone 100mg tab ORAL SCH (20:39)
[2018-08-25 20:50] VITALS: BP 124/83
--- NOTE | 2018-08-25 21:30 | Progress Note ---
DATE: 08/25/2018 SUBJECTIVE: This is a 52-year-old male patient with COPD. This patient does have some confusion, disorganized thought process. He has got a lot of depression and anxiety worsened by COPD that is why his attending has requested daily psychiatric consultation. MENTAL STATUS EXAMINATION: This is a 52-year-old male. Appearance is disheveled. Attitude, irritable and agitated. Affect, guarded and restricted. Intellect poor. Mood depressed and anxious. Motor activity, psychomotor agitation. Attention span is poor. Orientation x2. Speech is low volume and slurred. Thought process, disorganized and illogical. Thought content, auditory hallucinations and paranoid delusions. Insight and judgment are poor. DIAGNOSIS: Major depressive disorder, mild, recurrent, without psychotic features. PLAN: Treat him with Neurontin 600 mg three times a day, trazodone 100 mg at bedtime. Provided him with 20 minutes of cognitive behavioral therapy to help him identify automatic negative thoughts and help him convert those negative thoughts to more positive thoughts reduce depression, anxiety, and mood lability. Chart is reviewed. Discussed with staff. Seen and assessed at bedside. Laney Mcghee M.D. DR: Doretha JOB#: [id number] CC:
--- NOTE | 2018-08-25 23:45 | Progress Note ---
DATE: 08/25/2018 NOTE: POOR AUDIO PSYCHOTHERAPY CONSULTATION PROGRESS NOTE CONSULTING PHYSICIAN: Liu Jackman PsyD. TREATING ATTENDING PHYSICIAN: Ernesto Nicole D.O. HISTORY OF PRESENT ILLNESS: This is a 52-year-old male patient. The patient remains irritable and anxious. She states . She has had poor frustration tolerance and irritability. The patient has had difficultly coping with his current situation. Denies suicidal or homicidal thoughts of ideation. . The patient is alert, oriented to person, place, time, situation. His mood is irritable. Affect is labile. Thought process, disorganized. Thought content, linear. Poor attention and concentration. Fair insight. Fair judgment. Fair impulse control. this morning. Supportive psychotherapy, which is focused on . Discussed with the patient regarding his current situation, states that he has been still overweight that he has . Also provide him with cognitive behavioral therapy to anxiety, redirect the patient's negative thought process and encourage continue with behavioral management for this patient. This clinician has reviewed the patient's chart. Discussed treatment with treatment team. Psychotherapy provided to this patient, 20 minutes. Liu Jackman PsyD. DR: Ozzy JOB#: [id number] CC:
--- NOTE | 2018-08-25 23:58 | Cardiology Progress Note ---
Assessment/Plan Assessment/Plan 1. Most likely noncardiac chest pain. Electrocardiography shows sinus rhythm with premature ventricular complexes with no acute ST and T-wave abnormalities. AMI is ruled out by negative CE. Beta-natriuretic peptide is also within normal limits. Echo reveals normal LV systolic and diastolic function with LVEF at 55% and normal pulmonary artery pressure. 2. History of chronic obstructive pulmonary disease. 3. Obesity hypoventilation syndrome. 4. History of seizure disorder. 5. History of hypertension. 6. Morbid obesity with BMI of 52 and large pannus. 7. Hyperlipidemia. Subjective Subjective No cardiac events noted. Objective Last 24 Hour Vital Signs Date Time Temp Pulse Resp B/P (MAP) Pulse Ox O2 Delivery O2 Flow Rate FiO2 08/25/18 20:59 Room Air 08/25/18 20:50 98.1 95 18 124/83 (97) 97 08/25/18 20:00 90 18 Room Air 21 08/25/18 18:09 87 22 99 Room Air 21 08/25/18 18:04 86 24 98 Room Air 21 08/25/18 16:00 89 08/25/18 16:00 98.2 91 20 131/70 (90) 95 08/25/18 12:00 97.8 92 20 103/59 (74) 92 08/25/18 09:00 Room Air 08/25/18 08:00 97.7 92 20 135/87 (103) 95 08/25/18 08:00 105 08/25/18 06:56 97.5 08/25/18 04:00 89 08/25/18 04:00 97.5 86 20 149/80 (103) 97 08/25/18 00:00 86 08/25/18 00:00 98.1 92 20 107/71 (83) 95 Intake and Output 08/24/18 08/25/18 18:59 06:59 Intake Total 720 ml Balance 720 ml Intake Oral 720 ml # Voids 2 4 2D Echo: LVEF 65%, Milkd LVH, Moderate SELAM, RVSP 25 mmHg Laboratory Tests Test 08/25/18 12:00 White Blood Count 7.6 K/UL (4.8-10.8) Red Blood Count 4.36 M/UL (4.70-6.10) L Hemoglobin 14.3 G/DL (14.2-18.0) Hematocrit 43.3 % (42.0-52.0) Mean Corpuscular Volume 99 FL (80-99) Mean Corpuscular Hemoglobin 32.8 PG (27.0-31.0) H Mean Corpuscular Hemoglobin Concent 33.0 G/DL (32.0-36.0) Red Cell Distribution Width 12.7 % (11.6-14.8) Platelet Count 171 K/UL (150-450) Mean Platelet Volume 5.3 FL (6.5-10.1) L Neutrophils (%) (Auto) 64.2 % (45.0-75.0) Lymphocytes (%) (Auto) 27.9 % (20.0-45.0) Monocytes (%) (Auto) 6.6 % (1.0-10.0) Eosinophils (%) (Auto) 0.7 % (0.0-3.0) Basophils (%) (Auto) 0.6 % (0.0-2.0) Sodium Level 140 MMOL/L (136-145) Potassium Level 3.7 MMOL/L (3.5-5.1) Chloride Level 102 MMOL/L (98-107) Carbon Dioxide Level 34 MMOL/L (21-32) H Anion Gap 4 mmol/L (5-15) L Blood Urea Nitrogen 25 mg/dL (7-18) H Creatinine 1.1 MG/DL (0.55-1.30) Estimat Glomerular Filtration Rate > 60 mL/min (>60) Glucose Level 101 MG/DL (74-106) Calcium Level 8.4 MG/DL (8.5-10.1) L Objective HEENT: Atraumatic and normocephalic. Anicteric. Pupils are equal, round, and reactive to light and accommodation. Extraocular muscles intact. NECK: JVP less than 5 cm. No carotid bruit. Carotid upstrokes 2+ bilaterally. CVS: Normal S1, S2. Regular rate and rhythm. No murmurs, gallops, or rubs. LUNGS: Diminished breath sounds bilaterally. ABDOMEN: Large pannus. Cannot appreciate hepatosplenomegaly. Positive bowel sounds. EXTREMITIES: There is no evidence of edema, clubbing, or cyanosis. Carlos Martins MD Aug 25, 2018 23:58
[2018-08-26] VITALS: BP 130/99
--- NOTE | 2018-08-26 03:29 | NUR ---
NURSE NOTES: Reported to Dr. Nicole about pts recent fall in the bathroom as well as his complaints of red, itchy, bumps on his scalp and slight anal bleeding after passing gas. He also requested an increase in his dilaudid dose. Awaiting call back. Addendum: 08/26/18 at 0340 by Kathie Cannon RN NURSE NOTES: Bedside commode at bedside. Bed alarm on and in lowest position. Call light within reach. IV site intact and running lasix drip at 11 cc/hr. Will continue to monitor.
--- NOTE | 2018-08-26 04:05 | NUR ---
NURSE NOTES: Dr. Nicole gave instructions to call Ladonna Damon and Monika. Awaiting their calls back.
[2018-08-26 06:55] LABS: BASOPHILS % (AUTO) 0.6 % (0.0-2.0); EOSINOPHILS % (AUTO) 0.5 % (0.0-3.0); HEMATOCRIT 43.8 % (42.0-52.0); HEMOGLOBIN 14.7 G/DL (14.2-18.0); LYMPHOCYTES % (AUTO) 23.3 % (20.0-45.0); MEAN CORPUSCULAR VOLUME 99 FL (80-99); MONOCYTES % (AUTO) 7.6 % (1.0-10.0); NEUTROPHILS % (AUTO) 68.1 % (45.0-75.0); PLATELET COUNT 182 K/UL (150-450); RED BLOOD COUNT 4.42 M/UL (4.70-6.10); RED CELL DISTRIBUTION WIDTH 12.7 % (11.6-14.8); WHITE BLOOD COUNT 8.6 K/UL (4.8-10.8)
[2018-08-26 07:20] LABS: ANION GAP 6 mmol/L (5-15); BLOOD UREA NITROGEN 27 mg/dL (7-18); CALCIUM 8.6 MG/DL (8.5-10.1); CARBON DIOXIDE 36 MMOL/L (21-32); CHLORIDE 100 MMOL/L (98-107); CREATININE 1.1 MG/DL (0.55-1.30); POTASSIUM 3.2 MMOL/L (3.5-5.1); SODIUM 142 MMOL/L (136-145)
--- NOTE | 2018-08-26 07:30 | NUR ---
HAND-OFF: Report given to MICAELA Pichardo. Pt stable.
--- NOTE | 2018-08-26 07:41 | NUR ---
NURSE NOTES: pt awake alert, no distress. iv lasix infusing , call light within reach. ambulatory. picc on lue is intact. will monitor.
[2018-08-26 08:00] VITALS: BP 118/83
[2018-08-26] MEDS: MS Contin 15mg tab ORAL SCH ×2 (08:05→20:30)
[2018-08-26] MEDS: Theophylline ER 100mg ORAL SCH (08:05)
[2018-08-26] MEDS: Heparin 5000 units/ml inj SUBQ SCH ×2 (08:07→20:35)
--- NOTE | 2018-08-26 08:48 | General Progress Note ---
Assessment/Plan Assessment/Plan (1) Lumbar DDD (2) Lumbar Spondylosis (3) Lumbar Radiculopathy (4) Morbid Obesity (5) Right knee pain (6) Right knee OA h/o ORIF Patient will be continued on Morphine ER and Dilaudid D/w Dr. Magaña and he concurred. Subjective Date patient seen: Aug 26, 2018 Time patient seen: 07:15 - am Allergies: Coded Allergies: ASPIRIN (Verified Allergy, Unknown, 07/14/18) KETOROLAC (Verified Allergy, Unknown, 07/14/18) PENICILLINS (Verified Allergy, Unknown, 07/14/18) Subjective REVIEW OF SYSTEMS: Denies rash, fever, chills, sweating, dizziness, drowsiness, blurred vision, sore throat, change in weight. No nausea, vomiting, diarrhea, or blood in the stool or urine. No bowel or bladder incontinence. No dysuria. He is complaining of low back pain and right lower extremity pain. SUBJECTIVE: Patient is in bed and continues to c/o severe pain which has been tolerated on the Morphine and Dilaudid. Objective Last 24 Hour Vital Signs Date Time Temp Pulse Resp B/P (MAP) Pulse Ox O2 Delivery O2 Flow Rate FiO2 08/26/18 08:06 92 21 Room Air 21 08/26/18 07:44 Room Air 08/26/18 04:00 97 08/26/18 00:00 94 08/26/18 00:00 98.5 93 18 130/99 (109) 97 08/25/18 20:59 Room Air 08/25/18 20:50 98.1 95 18 124/83 (97) 97 08/25/18 20:00 90 18 Room Air 21 08/25/18 18:09 87 22 99 Room Air 21 08/25/18 18:04 86 24 98 Room Air 21 08/25/18 16:00 89 08/25/18 16:00 98.2 91 20 131/70 (90) 95 08/25/18 12:00 97.8 92 20 103/59 (74) 92 08/25/18 09:00 Room Air Intake and Output 08/25/18 08/26/18 19:00 07:00 Intake Total 500 ml 260 ml Balance 500 ml 260 ml Intake Oral 500 ml 260 ml # Voids 13 Laboratory Tests 08/25/18 12:00: White Blood Count 7.6, Red Blood Count 4.36L, Hemoglobin 14.3, Hematocrit 43.3, Mean Corpuscular Volume 99, Mean Corpuscular Hemoglobin 32.8H, Mean Corpuscular Hemoglobin Concent 33.0, Red Cell Distribution Width 12.7, Platelet Count 171, Mean Platelet Volume 5.3L, Neutrophils (%) (Auto) 64.2, Lymphocytes (%) (Auto) 27.9, Monocytes (%) (Auto) 6.6, Eosinophils (%) (Auto) 0.7, Basophils (%) (Auto ) 0.6, Sodium Level 140, Potassium Level 3.7, Chloride Level 102, Carbon Dioxide Level 34H, Anion Gap 4L, Blood Urea Nitrogen 25H, Creatinine 1.1, Estimat Glomerular Filtration Rate > 60, Glucose Level 101, Calcium Level 8.4L 08/26/18 06:15: White Blood Count 8.6, Red Blood Count 4.42L, Hemoglobin 14.7, Hematocrit 43.8, Mean Corpuscular Volume 99, Mean Corpuscular Hemoglobin 33.3H, Mean Corpuscular Hemoglobin Concent 33.5, Red Cell Distribution Width 12.7, Platelet Count 182, Mean Platelet Volume 5.5L, Neutrophils (%) (Auto) 68.1, Lymphocytes (%) (Auto) 23.3, Monocytes (%) (Auto) 7.6, Eosinophils (%) (Auto) 0.5, Basophils (%) (Auto ) 0.6, Sodium Level 142, Potassium Level 3.2L, Chloride Level 100, Carbon Dioxide Level 36H, Anion Gap 6, Blood Urea Nitrogen 27H, Creatinine 1.1, Estimat Glomerular Filtration Rate > 60, Glucose Level 97, Calcium Level 8.6 Height (Feet): 5 Height (Inches): 11.00 Weight (Pounds): 489 Objective GENERAL: Alert, awake, and oriented x3. LUNGS: Decreased breath sounds bilaterally. HEART: S1 and S2, regular. ABDOMEN: Obese, tender ness to palpation with skin changes noted. EXTREMITIES: No cyanosis. No clubbing. No edema. NEURO: No Focal deficits. Eliezer Nicole Aug 26, 2018 08:48
[2018-08-26 12:00] VITALS: BP 133/64
--- NOTE | 2018-08-26 13:07 | Pulmonology Progress Note ---
Assessment/Plan Problems: (1) ACS (acute coronary syndrome) (2) COPD (chronic obstructive pulmonary disease) (3) Right heart failure (4) Abdominal pannus (5) ADALBERTO (obstructive sleep apnea) (6) Seizures (7) Morbid obesity Assessment/Plan Dr. Roberts will do the abdominal surgery once pt is medically clear. Respiratory treatment bipap prn at night cardiology f/u serial ekg, troponin continue lasix drip increase dilaudid ot q3 hours symptomatic treatment dvt prophylaxis titrate fio2 to saturation of 92% Subjective ROS Limited/Unobtainable: No Interval Events: doing better Allergies: Coded Allergies: ASPIRIN (Verified Allergy, Unknown, 07/14/18) KETOROLAC (Verified Allergy, Unknown, 07/14/18) PENICILLINS (Verified Allergy, Unknown, 07/14/18) Objective Last 24 Hour Vital Signs Date Time Temp Pulse Resp B/P (MAP) Pulse Ox O2 Delivery O2 Flow Rate FiO2 08/26/18 12:20 98.1 08/26/18 12:00 98.1 104 18 133/64 (87) 97 08/26/18 08:35 98.5 08/26/18 08:35 98.5 08/26/18 08:06 92 21 Room Air 21 08/26/18 08:00 98.1 96 18 118/83 (95) 97 08/26/18 07:56 104 08/26/18 07:44 Room Air 08/26/18 04:00 97 08/26/18 00:00 94 08/26/18 00:00 98.5 93 18 130/99 (109) 97 08/25/18 20:59 Room Air 08/25/18 20:50 98.1 95 18 124/83 (97) 97 08/25/18 20:00 90 18 Room Air 21 08/25/18 18:09 87 22 99 Room Air 21 08/25/18 18:04 86 24 98 Room Air 21 08/25/18 16:00 89 08/25/18 16:00 98.2 91 20 131/70 (90) 95 Intake and Output 08/25/18 08/26/18 19:00 07:00 Intake Total 500 ml 260 ml Balance 500 ml 260 ml Intake Oral 500 ml 260 ml # Voids 13 General Appearance: WD/WN HEENT: normocephalic, atraumatic Respiratory/Chest: chest wall non-tender, lungs clear Cardiovascular: normal peripheral pulses, normal rate Abdomen: normal bowel sounds, other Extremities: no cyanosis, other - large edema Laboratory Tests 08/26/18 06:15: White Blood Count 8.6, Red Blood Count 4.42L, Hemoglobin 14.7, Hematocrit 43.8, Mean Corpuscular Volume 99, Mean Corpuscular Hemoglobin 33.3H, Mean Corpuscular Hemoglobin Concent 33.5, Red Cell Distribution Width 12.7, Platelet Count 182, Mean Platelet Volume 5.5L, Neutrophils (%) (Auto) 68.1, Lymphocytes (%) (Auto) 23.3, Monocytes (%) (Auto) 7.6, Eosinophils (%) (Auto) 0.5, Basophils (%) (Auto ) 0.6, Sodium Level 142, Potassium Level 3.2L, Chloride Level 100, Carbon Dioxide Level 36H, Anion Gap 6, Blood Urea Nitrogen 27H, Creatinine 1.1, Estimat Glomerular Filtration Rate > 60, Glucose Level 97, Calcium Level 8.6 Current Medications Medications (Trade) Dose Ordered Sig/Luis Route PRN Reason Start Time Stop Time Status Last Admin Dose Admin Acetaminophen (Tylenol) 650 mg Q4H PRN ORAL FEVER 08/22/18 19:45 09/21/18 19:44 Acetaminophen/ Hydrocodone Bitart ([place] 10/325) 1 tab Q4H PRN ORAL For Pain 08/22/18 19:45 08/29/18 19:44 Albuterol/ Ipratropium (Albuterol/ Ipratropium) 3 ml Q4H PRN HHN Shortness of Breath 08/22/18 19:45 08/27/18 19:44 08/25/18 18:04 Atorvastatin Calcium (Lipitor) 80 mg BEDTIME ORAL 08/22/18 21:00 09/21/18 20:59 08/25/18 20:30 Chlorhexidine Gluconate (Ruby-Hex 2%) 1 applic DAILY@1999 TOPIC 08/25/18 20:00 09/24/18 19:59 08/25/18 20:31 Clopidogrel Bisulfate (Plavix) 75 mg DAILY ORAL 08/23/18 09:00 09/22/18 08:59 08/26/18 08:05 Diltiazem HCl (Cardizem) 10 mg Q1H PRN IV heart rate more than 120, 08/22/18 19:45 09/21/18 19:44 Enalaprilat (Vasotec) 2.5 mg Q6H PRN IV sbp more than 160 08/22/18 19:45 09/21/18 19:44 Furosemide 100 mg/ Dextrose 110 ml @ 11 mls/hr Q10H IV 08/26/18 10:15 09/24/18 14:29 08/26/18 10:40 Gabapentin (Neurontin) 600 mg THREE TIMES A DAY ORAL 08/23/18 09:00 09/22/18 08:59 08/26/18 08:05 Heparin Sodium (Porcine) (Heparin 5000 units/ml) 5,000 units EVERY 12 HOURS SUBQ 08/22/18 21:00 09/21/18 20:59 08/26/18 08:07 Heparin Sodium/ Sodium Chloride (Heparin 2000 units/Ns 1000ml premix) 2,000 unit ONCE PRN INJ PICC PLACEMENT 08/25/18 13:15 08/26/18 23:59 Hydromorphone HCl (Dilaudid) 3 mg Q3H PRN IVP Severe Pain (Pain Scale 7-10) 08/26/18 11:45 09/02/18 11:44 08/26/18 11:50 Lidocaine HCl (Xylocaine 1% 30ml) 30 ml ONCE PRN INJ FOR PICC PLACEMENT 08/25/18 13:15 08/26/18 23:59 Morphine Sulfate (MS Contin) 15 mg Q12HR ORAL 08/23/18 09:00 08/30/18 08:59 08/26/18 08:05 Nitroglycerin (Ntg) 0.4 mg Q5M PRN SL Prn Chest Pain 08/22/18 19:45 09/21/18 19:44 Ondansetron HCl (Zofran) 4 mg Q6H PRN IVP Nausea & Vomiting 08/22/18 19:45 09/21/18 19:44 Polyethylene Glycol (Miralax) 17 gm DAILYPRN PRN ORAL Constipation 08/22/18 19:45 09/21/18 19:44 Temazepam (Restoril) 15 mg HSPRN PRN ORAL Insomnia 08/22/18 19:45 08/29/18 19:44 Theophylline (George-Dur) 100 mg DAILY ORAL 08/23/18 09:00 09/22/18 08:59 08/26/18 08:05 Trazodone HCl (Desyrel) 100 mg BEDTIME ORAL 08/24/18 21:00 09/23/18 20:59 08/24/18 21:21 Bill Dixon MD Aug 26, 2018 13:07
--- NOTE | 2018-08-26 13:31 | General Progress Note ---
Assessment/Plan Problem List: (1) Peripheral edema ICD Codes: R60.9 - Edema, unspecified SNOMED: 174797777 (2) COPD (chronic obstructive pulmonary disease) ICD Codes: J44.9 - Chronic obstructive pulmonary disease, unspecified SNOMED: 12633687 Qualifiers: Qualified Codes: J44.9 - Chronic obstructive pulmonary disease, unspecified (3) Leg pain ICD Codes: M79.606 - Pain in leg, unspecified SNOMED: 00507899 (4) Morbid obesity ICD Codes: E66.01 - Morbid (severe) obesity due to excess calories SNOMED: 523004394 (5) Seizures ICD Codes: R56.9 - Unspecified convulsions SNOMED: 01169047 (6) Right heart failure ICD Codes: I50.810 - Right heart failure, unspecified SNOMED: 459259375 (7) ACS (acute coronary syndrome) ICD Codes: I24.9 - Acute ischemic heart disease, unspecified SNOMED: 264005748 (8) Abdominal pannus ICD Codes: E65 - Localized adiposity SNOMED: 2618445495432 Status: unchanged Assessment/Plan o2 pulm tx prn seizure pain control pt diet cbc bmp am aru eval Subjective Constitutional: Reports: weakness Respiratory: Reports: shortness of breath Allergies: Coded Allergies: ASPIRIN (Verified Allergy, Unknown, 07/14/18) KETOROLAC (Verified Allergy, Unknown, 07/14/18) PENICILLINS (Verified Allergy, Unknown, 07/14/18) All Systems: reviewed and negative except above Subjective sitting sob Objective Last 24 Hour Vital Signs Date Time Temp Pulse Resp B/P (MAP) Pulse Ox O2 Delivery O2 Flow Rate FiO2 08/26/18 13:19 111 08/26/18 12:20 98.1 08/26/18 12:00 98.1 104 18 133/64 (87) 97 08/26/18 08:35 98.5 08/26/18 08:35 98.5 08/26/18 08:06 92 21 Room Air 21 08/26/18 08:00 98.1 96 18 118/83 (95) 97 08/26/18 07:56 104 08/26/18 07:44 Room Air 08/26/18 04:00 97 08/26/18 00:00 94 08/26/18 00:00 98.5 93 18 130/99 (109) 97 08/25/18 20:59 Room Air 08/25/18 20:50 98.1 95 18 124/83 (97) 97 08/25/18 20:00 90 18 Room Air 21 08/25/18 18:09 87 22 99 Room Air 21 08/25/18 18:04 86 24 98 Room Air 21 08/25/18 16:00 89 08/25/18 16:00 98.2 91 20 131/70 (90) 95 Intake and Output 08/25/18 08/26/18 19:00 07:00 Intake Total 500 ml 260 ml Balance 500 ml 260 ml Intake Oral 500 ml 260 ml # Voids 13 Laboratory Tests 08/26/18 06:15: White Blood Count 8.6, Red Blood Count 4.42L, Hemoglobin 14.7, Hematocrit 43.8, Mean Corpuscular Volume 99, Mean Corpuscular Hemoglobin 33.3H, Mean Corpuscular Hemoglobin Concent 33.5, Red Cell Distribution Width 12.7, Platelet Count 182, Mean Platelet Volume 5.5L, Neutrophils (%) (Auto) 68.1, Lymphocytes (%) (Auto) 23.3, Monocytes (%) (Auto) 7.6, Eosinophils (%) (Auto) 0.5, Basophils (%) (Auto ) 0.6, Sodium Level 142, Potassium Level 3.2L, Chloride Level 100, Carbon Dioxide Level 36H, Anion Gap 6, Blood Urea Nitrogen 27H, Creatinine 1.1, Estimat Glomerular Filtration Rate > 60, Glucose Level 97, Calcium Level 8.6 Height (Feet): 5 Height (Inches): 11.00 Weight (Pounds): 489 General Appearance: lethargic EENT: normal ENT inspection Neck: normal alignment Cardiovascular: normal peripheral pulses, normal rate, regular rhythm Respiratory/Chest: chest wall non-tender, lungs clear, normal breath sounds Abdomen: normal bowel sounds, distended Extremities: swelling Edema: 2+ Arm (L), 2+ Arm (R), 2+ Leg (L), 2+ Leg (R), 2+ Pedal (L), 2+ Pedal ( R), 2+ Generalized Edema: mild edema Neurologic: responsive, motor weakness Skin: normal pigmentation, warm/dry Ernesto Nicole DO Aug 26, 2018 13:31
--- NOTE | 2018-08-26 14:30 | Consultation ---
History of Present Illness General Date patient seen: Aug 26, 2018 Chief Complaint: Chest Pain Reason for Consultation: Abscess Present Illness HPI Mr. Conde is a 52 yo male with PMHx of Seizures, COPD and CHF who was [facility] for SOB. He was found to have a COPD exacerbation. He is now feeling better and on RA. He developed small sores that quicly scabbed over on his forhead and a possible abscess on hios neck over the last few days. he reports that the small sores have been preset before and they heal on their own normally.. ID consulted for Abscess PMHx/PSHx Obesity Seizures COPD. CHF SocHx Active smoker No E/D FamHx Not contributory Allergies: Coded Allergies: ASPIRIN (Verified Allergy, Unknown, 07/14/18) KETOROLAC (Verified Allergy, Unknown, 07/14/18) PENICILLINS (Verified Allergy, Unknown, 07/14/18) Medication History Scheduled Atorvastatin Calcium* (Lipitor*), 80 MG ORAL BEDTIME, (Reported) Clopidogrel* (Clopidogrel*), 75 MG ORAL DAILY, (Reported) Diltiazem Hcl (Diltiazem Hcl), 120 MG PO DAILY, (Reported) Docusate Sodium* (Docusate Sodium*), 100 MG ORAL DAILY, (Reported) Furosemide* (Lasix*), 40 MG ORAL DAILY, (Reported) Gabapentin* (Gabapentin*), 600 MG ORAL THREE TIMES A DAY, (Reported) Ipratropium/Albuterol Sulfate (DuoNeb 0.5-3(2.5)mg/3ml), 3 ML HHN Q6HR, ( Reported) Isosorbide Dinitrate (Isosorbide Dinitrate), 30 MG PO DAILY, (Reported) Isosorbide Mononitrate (Isosorbide Mononitrate Er), 30 MG PO DAILY, (Reported) Levetiracetam (Keppra Xr), 500 MG ORAL BID, (Reported) Morphine Sulfate (Morphine Sulfate Er), 15 MG PO DAILY, (Reported) Theophylline Anhydrous (George-24), 300 MG PO DAILY, (Reported) Tiotropium [place] (Spiriva), 0 INH DAILY, (Reported) Scheduled PRN Acetaminophen* (Acetaminophen 325MG Tablet*), 650 MG ORAL Q4H PRN for Mild Pain/ Temp > 100.5, (Reported) Bisacodyl (Dulcolax), 10 MG RC DAILY PRN for IF MOM INEFFECTIVE, (Reported) Codeine/Promethazine Hcl* (Promethazine-Codeine Syrup*), 5 ML ORAL Q4H PRN for For Cough, (Reported) Hydrocodone Bit/Acetaminophen 10-325* ([place] 10-325*), 1 TAB ORAL Q4H PRN for For Pain, (Reported) Magnesium Hydroxide* (Milk Of Magnesia*), 30 ML ORAL BEDTIME PRN for IF DOCUSATE INEFFECTIVE, (Reported) Na Phos,M-B/Na Phos,Di-Ba* (Fleet Enema*), 133 ML RECTAL QOD PRN for IF DULCOLAX INEFFECTIVE, (Reported) Nitroglycerin (Nitrostat), 0.4 MG SL Q5M X3 DOSES PRN for CHEST PAIN, (Reported) Polyethylene Glycol 3350* (Miralax*), 17 GM ORAL DAILY PRN for Constipation, ( Reported) Discontinued Medications Albuterol Sulfate* (Albuterol Sulfate Hhn*), 3 ML INH Q4H PRN for Shortness of Breath, (Reported) Discontinued Reason: Pt stopped taking med Amlodipine Besylate (Norvasc), 5 MG ORAL DAILY, (Reported) Discontinued Reason: Pt stopped taking med Atorvastatin (Lipitor), 40 MG ORAL BEDTIME, (Reported) Discontinued Reason: Pt stopped taking med Codeine/Promethazine Hcl* (Promethazine-Codeine Syrup*), 5 ML ORAL Q4H PRN for For Cough, (Reported) Discontinued Reason: Pt stopped taking med Duloxetine Hcl* (Cymbalta*), 30 MG ORAL DAILY, (Reported) Discontinued Reason: Pt stopped taking med Furosemide* (Lasix*), 40 MG ORAL EVERY 8 HOURS, (Reported) Discontinued Reason: Pt stopped taking med Gabapentin* (Gabapentin*), 600 MG ORAL THREE TIMES A DAY, (Reported) Discontinued Reason: Pt stopped taking med Levetiracetam (Levetiracetam), 500 MG ORAL TWICE A DAY, (Reported) Discontinued Reason: Pt stopped taking med Methylprednisolone (Methylprednisolone*), 4 MG ORAL DIRECTED, (Reported) Discontinued Reason: Pt stopped taking med Morphine HCl (Morphine Sulfate ER), 15 MG ORAL Q6H PRN for For Pain, (Reported) Discontinued Reason: Pt stopped taking med Nitroglycerin (Nitroglycerin), 0.3 MG SCONJUNC, (Reported) Discontinued Reason: Pt stopped taking med Ondansetron* (Zofran*), 4 MG ORAL Q6H PRN for Nausea & Vomiting, (Reported) Discontinued Reason: Pt stopped taking med Ondansetron* (Zofran*), 4 MG ORAL Q6H PRN for Nausea & Vomiting, (Reported) Discontinued Reason: Pt stopped taking med Polyethylene Glycol 3350* (Polyethylene Glycol 3350*), 17 GM ORAL BEDTIME, ( Reported) Discontinued Reason: Pt stopped taking med Prednisone* (Prednisone*), 20 MG ORAL DAILY, (Reported) Discontinued Reason: Pt stopped taking med Sennosides (Senna), 17.2 MG PO BEDTIME, (Reported) Discontinued Reason: Pt stopped taking med Temazepam* (Restoril*), 15 MG ORAL BEDTIME PRN for Insomnia, (Reported) Discontinued Reason: Pt stopped taking med Theophylline (Theodur*), 100 MG ORAL TWICE A DAY, (Reported) Discontinued Reason: Pt stopped taking med Theophylline (Theodur*), 100 MG ORAL Q8HR, (Reported) Discontinued Reason: Pt stopped taking med Theophylline Anhydrous (Theophylline), 100 MG PO, (Reported) Discontinued Reason: MD discontinued med Patient History Healthcare decision maker N Resuscitation status Full Code Advanced Directive on File No Review of Systems ROS Narrative 12 point ROS negative except as note in the HPI. Physical Exam Last 24 Hour Vital Signs Date Time Temp Pulse Resp B/P (MAP) Pulse Ox O2 Delivery O2 Flow Rate FiO2 08/26/18 13:19 111 08/26/18 12:20 98.1 08/26/18 12:00 98.1 104 18 133/64 (87) 97 08/26/18 08:35 98.5 08/26/18 08:35 98.5 08/26/18 08:06 92 21 Room Air 21 08/26/18 08:00 98.1 96 18 118/83 (95) 97 08/26/18 07:56 104 08/26/18 07:44 Room Air 08/26/18 04:00 97 08/26/18 00:00 94 08/26/18 00:00 98.5 93 18 130/99 (109) 97 08/25/18 20:59 Room Air 08/25/18 20:50 98.1 95 18 124/83 (97) 97 08/25/18 20:00 90 18 Room Air 21 08/25/18 18:09 87 22 99 Room Air 21 08/25/18 18:04 86 24 98 Room Air 21 08/25/18 16:00 89 08/25/18 16:00 98.2 91 20 131/70 (90) 95 Intake and Output 08/25/18 08/26/18 19:00 07:00 Intake Total 500 ml 260 ml Balance 500 ml 260 ml Intake Oral 500 ml 260 ml # Voids 13 Laboratory Tests Test 08/26/18 06:15 White Blood Count 8.6 K/UL (4.8-10.8) Red Blood Count 4.42 M/UL (4.70-6.10) L Hemoglobin 14.7 G/DL (14.2-18.0) Hematocrit 43.8 % (42.0-52.0) Mean Corpuscular Volume 99 FL (80-99) Mean Corpuscular Hemoglobin 33.3 PG (27.0-31.0) H Mean Corpuscular Hemoglobin Concent 33.5 G/DL (32.0-36.0) Red Cell Distribution Width 12.7 % (11.6-14.8) Platelet Count 182 K/UL (150-450) Mean Platelet Volume 5.5 FL (6.5-10.1) L Neutrophils (%) (Auto) 68.1 % (45.0-75.0) Lymphocytes (%) (Auto) 23.3 % (20.0-45.0) Monocytes (%) (Auto) 7.6 % (1.0-10.0) Eosinophils (%) (Auto) 0.5 % (0.0-3.0) Basophils (%) (Auto) 0.6 % (0.0-2.0) Sodium Level 142 MMOL/L (136-145) Potassium Level 3.2 MMOL/L (3.5-5.1) L Chloride Level 100 MMOL/L (98-107) Carbon Dioxide Level 36 MMOL/L (21-32) H Anion Gap 6 mmol/L (5-15) Blood Urea Nitrogen 27 mg/dL (7-18) H Creatinine 1.1 MG/DL (0.55-1.30) Estimat Glomerular Filtration Rate > 60 mL/min (>60) Glucose Level 97 MG/DL (74-106) Calcium Level 8.6 MG/DL (8.5-10.1) Height (Feet): 5 Height (Inches): 11.00 Weight (Pounds): 489 Medications Current Medications Medications (Trade) Dose Ordered Sig/Luis Route PRN Reason Start Time Stop Time Status Last Admin Dose Admin Acetaminophen (Tylenol) 650 mg Q4H PRN ORAL FEVER 08/22/18 19:45 09/21/18 19:44 Acetaminophen/ Hydrocodone Bitart ([place] 10/325) 1 tab Q4H PRN ORAL For Pain 08/22/18 19:45 08/29/18 19:44 Albuterol/ Ipratropium (Albuterol/ Ipratropium) 3 ml Q4H PRN HHN Shortness of Breath 08/22/18 19:45 08/27/18 19:44 08/25/18 18:04 Atorvastatin Calcium (Lipitor) 80 mg BEDTIME ORAL 08/22/18 21:00 09/21/18 20:59 08/25/18 20:30 Chlorhexidine Gluconate (Ruby-Hex 2%) 1 applic DAILY@2000 TOPIC 08/25/18 20:00 09/24/18 19:59 08/25/18 20:31 Clopidogrel Bisulfate (Plavix) 75 mg DAILY ORAL 08/23/18 09:00 09/22/18 08:59 08/26/18 08:05 Diltiazem HCl (Cardizem) 10 mg Q1H PRN IV heart rate more than 120, 08/22/18 19:45 09/21/18 19:44 Enalaprilat (Vasotec) 2.5 mg Q6H PRN IV sbp more than 160 08/22/18 19:45 09/21/18 19:44 Furosemide 100 mg/ Dextrose 110 ml @ 11 mls/hr Q10H IV 08/26/18 10:15 09/24/18 14:29 08/26/18 10:40 Gabapentin (Neurontin) 600 mg THREE TIMES A DAY ORAL 08/23/18 09:00 09/22/18 08:59 08/26/18 13:09 Heparin Sodium (Porcine) (Heparin 5000 units/ml) 5,000 units EVERY 12 HOURS SUBQ 08/22/18 21:00 09/21/18 20:59 08/26/18 08:07 Heparin Sodium/ Sodium Chloride (Heparin 2000 units/Ns 1000ml premix) 2,000 unit ONCE PRN INJ PICC PLACEMENT 08/25/18 13:15 08/26/18 23:59 Hydromorphone HCl (Dilaudid) 3 mg Q3H PRN IVP Severe Pain (Pain Scale 7-10) 08/26/18 11:45 09/02/18 11:44 08/26/18 11:50 Lidocaine HCl (Xylocaine 1% 30ml) 30 ml ONCE PRN INJ FOR PICC PLACEMENT 08/25/18 13:15 08/26/18 23:59 Morphine Sulfate (MS Contin) 15 mg Q12HR ORAL 08/23/18 09:00 08/30/18 08:59 08/26/18 08:05 Nitroglycerin (Ntg) 0.4 mg Q5M PRN SL Prn Chest Pain 08/22/18 19:45 09/21/18 19:44 Ondansetron HCl (Zofran) 4 mg Q6H PRN IVP Nausea & Vomiting 08/22/18 19:45 09/21/18 19:44 Polyethylene Glycol (Miralax) 17 gm DAILYPRN PRN ORAL Constipation 08/22/18 19:45 09/21/18 19:44 Potassium Chloride 100 ml @ 100 mls/hr Q1H IVPB 08/26/18 14:00 08/26/18 17:59 08/26/18 14:13 Temazepam (Restoril) 15 mg HSPRN PRN ORAL Insomnia 08/22/18 19:45 08/29/18 19:44 Theophylline (George-Dur) 100 mg DAILY ORAL 08/23/18 09:00 09/22/18 08:59 08/26/18 08:05 Trazodone HCl (Desyrel) 100 mg BEDTIME ORAL 08/24/18 21:00 09/23/18 20:59 08/24/18 21:21 Objective Narrative Gen: NAD, well appearing, alert HEENT: NCAT, MMM, EOMI, PERRL, No Oral lesion, no scleral icterus NECK: full range of motion, supple, no meningismus, No LAD, No JVD LUNGS: CTAB, No W/C, No Accessory muscle use CARDS: RRR, S1, S2, No M/R/G, ABD: Soft, Obese, NT, ND, No R/G, + BS, No HSM, No Masses : Deferred Ext: C/C/E, Pulses 2+ B/L (DP, Rad): NEURO: A/O x 4, Strength and Sensation Grossly intact PSYCH: Mood/affect normal SKIN: Small scabbed sores on for head and arms (healing) posterior left neck with warm and 3-4cm area of pain with swelling and possible abscess. Assessment/Plan Assessment/Plan 52 yo male with PMHx of Seizures, COPD and CHF who [facility] for [facility]. Posterior neck abscess No fever No leukocytpsis Will evalauate with US and it may need surgical drainage of significant fluid colleciton present. Facial sores. Likely some sort of staph infection Sores seem to be healing. PLAN - Start Vancomyin for probable neck abscess - F/u US of posterior neck - Monitor CBC and Temps Thank you for this consult. We will continue to follow the patient during this hospitalization. Elliot Chauhan MD Aug 26, 2018 14:30
--- NOTE | 2018-08-26 15:46 | NUR ---
NURSE NOTES: pt asleep arousable, no distress. ivf infusing. iv site right hand 22g patent and intact. will monitor.
[2018-08-26] MEDS ORDERED: Vancomycin 2gm/D5W 550ml IVPB SCH ×2 (16:00)
--- NOTE | 2018-08-26 16:00 | Diagnostic Imaging Report ---
Indication: Neck mass Technique: Grayscale and duplex Doppler imaging of the area of clinical interest left side of the neck performed. Comparison: None Findings: There is a mass in the left side of the neck that is isoechoic to surrounding subcutaneous fat. This may be a lipoma but recommend correlation with CT or MR for confirmation. The mass is encapsulated and not cystic. The mass is hypovascular and measures approximately 4 x 2 cm. IMPRESSION: Solid tissue 4 x 2 cm may be a lipoma in the area of clinical interest. Recommend CT or MR for confirmation.
[2018-08-26 16:01] VITALS: BP 121/74
--- NOTE | 2018-08-26 18:30 | Progress Note ---
DATE: 08/26/2018 SUBJECTIVE: This is a 52-year-old male patient with COPD. The patient anxiety that is why his attending has requested daily psychiatric consultation. MENTAL STATUS EXAMINATION: A 52-year-old male. Appearance is disheveled. Attitude irritable and agitated. Affect, guarded and restricted. Intellect poor. Mood depressed and anxious. Motor activity, psychomotor agitation. Attention span is poor. Orientation x2. Speech is pressure.d thought process, disorganized and illogical. Insight and judgment is poor. DIAGNOSIS: Generalized anxiety disorder. PLAN: Treat him with Neurontin 600 mg 3 times a day, trazodone 100 mg at bedtime. Provided him with 20 minutes of cognitive behavioral therapy to help him identify automatic negative thoughts and help him convert those negative thoughts to more positive thoughts reduce depression, anxiety, and suicidality. Chart is reviewed. Discussed with staff. Seen and assessed at bedside. 20 minutes of cognitive behavioral therapy provided. Laney Mcghee M.D. DR: GEENA JOB#: [id number] CC:
--- NOTE | 2018-08-26 19:17 | NUR ---
HAND-OFF: Report given to MILTON HINOJOSA.
--- NOTE | 2018-08-26 19:20 | NUR ---
NURSE NOTES: Received pt from MICAELA Pichardo. Pt awake, alert, and c/o pain. Bed in lowest position. Call light within reach. Pt observed that stomach and feet are not getting smaller. Will continue to monitor.
[2018-08-26 20:00] VITALS: BP 136/84
[2018-08-26] MEDS: Dyna-Hex 2% Top Sol 2oz TOPIC SCH (20:29)
[2018-08-26] MEDS: TraZODone 100mg tab ORAL SCH (20:30)
[2018-08-26] MEDS: Atorvastatin 80mg tab ORAL SCH (20:30)
[2018-08-26] MEDS ORDERED: Vancomycin 1 GM in D5W 275 ML IVPB SCH (21:00)
--- NOTE | 2018-08-26 22:45 | Cardiology Progress Note ---
Assessment/Plan Assessment/Plan 1. Most likely noncardiac chest pain. Electrocardiography shows sinus rhythm with premature ventricular complexes with no acute ST and T-wave abnormalities. AMI is ruled out by negative CE. Beta-natriuretic peptide is also within normal limits. Echo reveals normal LV systolic and diastolic function with LVEF at 55% and normal pulmonary artery pressure. 2. History of chronic obstructive pulmonary disease. 3. Obesity hypoventilation syndrome. 4. History of seizure disorder. 5. History of hypertension. 6. Hyperlipidemia. Subjective Subjective No cardiac events. Objective Last 24 Hour Vital Signs Date Time Temp Pulse Resp B/P (MAP) Pulse Ox O2 Delivery O2 Flow Rate FiO2 08/26/18 19:54 104 20 Room Air 21 08/26/18 18:24 97.0 08/26/18 16:01 97.0 104 18 121/74 (90) 97 08/26/18 15:14 108 08/26/18 13:19 111 08/26/18 12:00 98.1 104 18 133/64 (87) 97 08/26/18 08:35 98.5 08/26/18 08:35 98.5 08/26/18 08:06 92 21 Room Air 21 08/26/18 08:00 98.1 96 18 118/83 (95) 97 08/26/18 07:56 104 08/26/18 07:44 Room Air 08/26/18 04:00 97 08/26/18 00:00 94 08/26/18 00:00 98.5 93 18 130/99 (109) 97 Intake and Output 08/25/18 08/26/18 19:00 07:00 Intake Total 500 ml 260 ml Balance 500 ml 260 ml Intake Oral 500 ml 260 ml # Voids 13 2D Echo: LVEF 65%, Mild LVH, Moderate SELAM, RVSP 25 mmHg Laboratory Tests Test 08/26/18 06:15 White Blood Count 8.6 K/UL (4.8-10.8) Red Blood Count 4.42 M/UL (4.70-6.10) L Hemoglobin 14.7 G/DL (14.2-18.0) Hematocrit 43.8 % (42.0-52.0) Mean Corpuscular Volume 99 FL (80-99) Mean Corpuscular Hemoglobin 33.3 PG (27.0-31.0) H Mean Corpuscular Hemoglobin Concent 33.5 G/DL (32.0-36.0) Red Cell Distribution Width 12.7 % (11.6-14.8) Platelet Count 182 K/UL (150-450) Mean Platelet Volume 5.5 FL (6.5-10.1) L Neutrophils (%) (Auto) 68.1 % (45.0-75.0) Lymphocytes (%) (Auto) 23.3 % (20.0-45.0) Monocytes (%) (Auto) 7.6 % (1.0-10.0) Eosinophils (%) (Auto) 0.5 % (0.0-3.0) Basophils (%) (Auto) 0.6 % (0.0-2.0) Sodium Level 142 MMOL/L (136-145) Potassium Level 3.2 MMOL/L (3.5-5.1) L Chloride Level 100 MMOL/L (98-107) Carbon Dioxide Level 36 MMOL/L (21-32) H Anion Gap 6 mmol/L (5-15) Blood Urea Nitrogen 27 mg/dL (7-18) H Creatinine 1.1 MG/DL (0.55-1.30) Estimat Glomerular Filtration Rate > 60 mL/min (>60) Glucose Level 97 MG/DL (74-106) Calcium Level 8.6 MG/DL (8.5-10.1) Objective HEENT: Atraumatic and normocephalic. Anicteric. Pupils are equal, round, and reactive to light and accommodation. Extraocular muscles intact. NECK: JVP less than 5 cm. No carotid bruit. Carotid upstrokes 2+ bilaterally. CVS: Normal S1, S2. Regular rate and rhythm. No murmurs, gallops, or rubs. LUNGS: Diminished breath sounds bilaterally. ABDOMEN: Large pannus. Cannot appreciate hepatosplenomegaly. Positive bowel sounds. EXTREMITIES: There is no evidence of edema, clubbing, or cyanosis. Carlos Martins MD Aug 26, 2018 22:45
[2018-08-27] VITALS (7 sets, daily range): BP systolic 104–166; BP diastolic 58–95
[2018-08-27] MEDS: Albuterol/Ipratropium 3ml neb HHN PRN ×2 (01:20→20:28)
--- NOTE | 2018-08-27 04:22 | NUR ---
NURSE NOTES: Pt wiped behind and saw trace amounts of blood. Reminded him that I informed Dr. Valdez yesterday. Will continue to monitor.
[2018-08-27 07:19] LABS: BASOPHILS % (AUTO) 0.5 % (0.0-2.0); HEMATOCRIT 42.2 % (42.0-52.0); HEMOGLOBIN 14.1 G/DL (14.2-18.0); LYMPHOCYTES % (AUTO) 17.3 % (20.0-45.0); MEAN CORPUSCULAR VOLUME 100 FL (80-99); MONOCYTES % (AUTO) 7.1 % (1.0-10.0); NEUTROPHILS % (AUTO) 74.1 % (45.0-75.0); PLATELET COUNT 165 K/UL (150-450); RED BLOOD COUNT 4.24 M/UL (4.70-6.10); RED CELL DISTRIBUTION WIDTH 12.8 % (11.6-14.8); WHITE BLOOD COUNT 7.8 K/UL (4.8-10.8)
[2018-08-27 07:26] LABS: ANION GAP 8 mmol/L (5-15); BLOOD UREA NITROGEN 28 mg/dL (7-18); CALCIUM 8.4 MG/DL (8.5-10.1); CARBON DIOXIDE 35 MMOL/L (21-32); CHLORIDE 96 MMOL/L (98-107); CREATININE 1.2 MG/DL (0.55-1.30); SODIUM 139 MMOL/L (136-145)
--- NOTE | 2018-08-27 07:45 | NUR ---
NURSE NOTES: Received report from MICAELA Vázquez. Patient is in stable condition. No acute distress/SOB noted. Will continue plan of care.
--- NOTE | 2018-08-27 07:52 | NUR ---
HAND-OFF: Report given to MICAELA Mac. Pt stable.
--- NOTE | 2018-08-27 07:52 | Infectious Diseases Prog Note ---
Assessment/Plan Assessment/Plan 52 yo male with PMHx of Seizures, COPD and CHF who was [facility] ED [facility] 08[facility] for SOB. Posterior neck abscess No fever No leukocytosis Will evaluate with US and it may need surgical drainage of significant fluid collection present. 08/26/18 US neck shows possible lipoma but CT or MRI recommend to confirm. Facial sores. Likely some sort of staph infection Sores seem to be healing. PLAN -Continue Vancomyin #[address] - f/u CT neck - Monitor CBC and Temps We will continue to follow the patient during this hospitalization. Subjective Allergies: Coded Allergies: ASPIRIN (Verified Allergy, Unknown, 07/14/18) KETOROLAC (Verified Allergy, Unknown, 07/14/18) PENICILLINS (Verified Allergy, Unknown, 07/14/18) Subjective Patient reports worsening edema and pain in his feet. He is on Dilaudid Afebrile No leukocytosis US of neck show likely lipoma but CT recommended to confirm. Objective Vital Signs Last 24 Hour Vital Signs Date Time Temp Pulse Resp B/P (MAP) Pulse Ox O2 Delivery O2 Flow Rate FiO2 08/27/18 04:00 97.9 93 20 120/58 (78) 96 08/27/18 04:00 90 08/27/18 01:31 96 Nasal Cannula 2.0 28 08/27/18 01:31 Nasal Cannula 2.0 28 08/27/18 01:30 95 20 97 Room Air 21 08/27/18 01:20 98 20 94 Room Air 21 08/27/18 00:00 98.6 98 20 104/64 (77) 96 08/27/18 00:00 103 08/26/18 21:00 Room Air 08/26/18 20:00 97.9 107 20 136/84 (101) 94 08/26/18 20:00 98 08/26/18 19:54 104 20 Room Air 21 08/26/18 18:24 97.0 08/26/18 16:01 97.0 104 18 121/74 (90) 97 08/26/18 15:14 108 08/26/18 13:19 111 08/26/18 12:00 98.1 104 18 133/64 (87) 97 08/26/18 08:35 98.5 08/26/18 08:35 98.5 08/26/18 08:06 92 21 Room Air 21 08/26/18 08:00 98.1 96 18 118/83 (95) 97 08/26/18 07:56 104 Height (Feet): 5 Height (Inches): 11.00 Weight (Pounds): 489 Objective Gen: NAD, well appearing, alert HEENT: NCAT, MMM, EOMI, PERRL, No Oral lesion, no scleral icterus NECK: full range of motion, supple, no meningismus, No LAD, No JVD LUNGS: CTAB, No W/C, No Accessory muscle use CARDS: RRR, S1, S2, No M/R/G, ABD: Soft, Obese, Enlarged panis with mild erythema. No warmth. + BS : Deferred Ext: Severe edema of feet, Pulses 2+ B/L (DP, Rad): NEURO: A/O x 4, Strength and Sensation Grossly intact PSYCH: Mood/affect normal SKIN: Small scabbed sores on for head and arms (healing) posterior left neck with warm and 3-4cm area of pain with swelling. Erythema resolved Laboratory Tests Test 08/27/18 05:00 White Blood Count 7.8 K/UL (4.8-10.8) Red Blood Count 4.24 M/UL (4.70-6.10) L Hemoglobin 14.1 G/DL (14.2-18.0) L Hematocrit 42.2 % (42.0-52.0) Mean Corpuscular Volume 100 FL (80-99) H Mean Corpuscular Hemoglobin 33.2 PG (27.0-31.0) H Mean Corpuscular Hemoglobin Concent 33.3 G/DL (32.0-36.0) Red Cell Distribution Width 12.8 % (11.6-14.8) Platelet Count 165 K/UL (150-450) Mean Platelet Volume 5.7 FL (6.5-10.1) L Neutrophils (%) (Auto) 74.1 % (45.0-75.0) Lymphocytes (%) (Auto) 17.3 % (20.0-45.0) L Monocytes (%) (Auto) 7.1 % (1.0-10.0) Eosinophils (%) (Auto) 1.0 % (0.0-3.0) Basophils (%) (Auto) 0.5 % (0.0-2.0) Sodium Level 139 MMOL/L (136-145) Potassium Level 3.0 MMOL/L (3.5-5.1) L Chloride Level 96 MMOL/L (98-107) L Carbon Dioxide Level 35 MMOL/L (21-32) H Anion Gap 8 mmol/L (5-15) Blood Urea Nitrogen 28 mg/dL (7-18) H Creatinine 1.2 MG/DL (0.55-1.30) Estimat Glomerular Filtration Rate > 60 mL/min (>60) Glucose Level 191 MG/DL (74-106) H Calcium Level 8.4 MG/DL (8.5-10.1) L Current Medications Medications (Trade) Dose Ordered Sig/Luis Route PRN Reason Start Time Stop Time Status Last Admin Dose Admin Acetaminophen (Tylenol) 650 mg Q4H PRN ORAL FEVER 08/22/18 19:45 09/21/18 19:44 Acetaminophen/ Hydrocodone Bitart ([place] 10325) 1 tab Q4H PRN ORAL For Pain 08/22/18 19:45 08/29/18 19:44 Albuterol/ Ipratropium (Albuterol/ Ipratropium) 3 ml Q4H PRN HHN Shortness of Breath 08/22/18 19:45 08/27/18 19:44 08/27/18 01:20 Atorvastatin Calcium (Lipitor) 80 mg BEDTIME ORAL 08/22/18 21:00 09/21/18 20:59 08/26/18 20:30 Chlorhexidine Gluconate (Ruby-Hex 2%) 1 applic DAILY@1999 TOPIC 08/25/18 20:00 09/24/18 19:59 08/26/18 20:29 Clopidogrel Bisulfate (Plavix) 75 mg DAILY ORAL 08/23/18 09:00 09/22/18 08:59 08/26/18 08:05 Diltiazem HCl (Cardizem) 10 mg Q1H PRN IV heart rate more than 120, 08/22/18 19:45 09/21/18 19:44 Enalaprilat (Vasotec) 2.5 mg Q6H PRN IV sbp more than 160 08/22/18 19:45 09/21/18 19:44 Furosemide 100 mg/ Dextrose 110 ml @ 11 mls/hr Q10H IV 08/26/18 10:15 09/24/18 14:29 08/27/18 06:39 Gabapentin (Neurontin) 600 mg THREE TIMES A DAY ORAL 08/23/18 09:00 09/22/18 08:59 08/26/18 17:13 Heparin Sodium (Porcine) (Heparin 5000 units/ml) 5,000 units EVERY 12 HOURS SUBQ 08/22/18 21:00 09/21/18 20:59 08/26/18 20:35 Hydromorphone HCl (Dilaudid) 3 mg Q3H PRN IVP Severe Pain (Pain Scale 7-10) 08/26/18 11:45 09/02/18 11:44 08/27/18 06:34 Morphine Sulfate (MS Contin) 15 mg Q12HR ORAL 08/23/18 09:00 08/30/18 08:59 08/26/18 08:05 Nitroglycerin (Ntg) 0.4 mg Q5M PRN SL Prn Chest Pain 08/22/18 19:45 09/21/18 19:44 Ondansetron HCl (Zofran) 4 mg Q6H PRN IVP Nausea & Vomiting 08/22/18 19:45 09/21/18 19:44 Polyethylene Glycol (Miralax) 17 gm DAILYPRN PRN ORAL Constipation 08/22/18 19:45 09/21/18 19:44 Temazepam (Restoril) 15 mg HSPRN PRN ORAL Insomnia 08/22/18 19:45 08/29/18 19:44 Theophylline (George-Dur) 100 mg DAILY ORAL 08/23/18 09:00 09/22/18 08:59 08/26/18 08:05 Trazodone HCl (Desyrel) 100 mg BEDTIME ORAL 08/24/18 21:00 09/23/18 20:59 08/24/18 21:21 Vancomycin HCl (Vanco rx to dose) 1 ea DAILY PRN MISC Per rx protocol 08/26/18 14:45 09/25/18 14:44 Vancomycin HCl/ Dextrose 250 ml @ 125 mls/hr Q8H IVPB 08/27/18 00:00 09/01/18 00:00 1/31/19 00:00 Elliot Chauhan MD Aug 27, 2018 07:52
[2018-08-27] MEDS: Theophylline ER 100mg ORAL SCH (08:32)
[2018-08-27] MEDS: Vancomycin 1500mg IVPB SCH ×2 (08:32)
[2018-08-27] MEDS: MS Contin 15mg tab ORAL SCH ×2 (08:34→20:07)
[2018-08-27] MEDS: Heparin 5000 units/ml inj SUBQ SCH ×2 (08:36→20:08)
--- NOTE | 2018-08-27 08:49 | General Progress Note ---
Assessment/Plan Assessment/Plan (1) Lumbar DDD (2) Lumbar Spondylosis (3) Lumbar Radiculopathy (4) Morbid Obesity (5) Right knee pain (6) Right knee OA h/o ORIF Patient will be continued on Morphine ER and Dilaudid D/w Dr. Magaña and he concurred. Subjective Date patient seen: Aug 27, 2018 Time patient seen: 07:30 - am Allergies: Coded Allergies: ASPIRIN (Verified Allergy, Unknown, 07/14/18) KETOROLAC (Verified Allergy, Unknown, 07/14/18) PENICILLINS (Verified Allergy, Unknown, 07/14/18) Subjective REVIEW OF SYSTEMS: Denies rash, fever, chills, sweating, dizziness, drowsiness, blurred vision, sore throat, change in weight. No nausea, vomiting, diarrhea, or blood in the stool or urine. No bowel or bladder incontinence. No dysuria. He is complaining of low back pain and right lower extremity pain. SUBJECTIVE: Patient continues to have severe pain and reports that due to the severity of his pain the Dilaudid was lasting 3hrs and due to this it was changed to Q3H PRN. he continues to take the Morphine ER. Objective Last 24 Hour Vital Signs Date Time Temp Pulse Resp B/P (MAP) Pulse Ox O2 Delivery O2 Flow Rate FiO2 08/27/18 08:39 98 20 Nasal Cannula 2.0 28 08/27/18 08:39 Nasal Cannula 2.0 28 08/27/18 08:39 97 Nasal Cannula 2.0 28 08/27/18 04:00 97.9 93 20 120/58 (78) 96 08/27/18 04:00 90 08/27/18 01:31 96 Nasal Cannula 2.0 28 08/27/18 01:31 Nasal Cannula 2.0 28 08/27/18 01:30 95 20 97 Room Air 21 08/27/18 01:20 98 20 94 Room Air 21 08/27/18 00:00 98.6 98 20 104/64 (77) 96 08/27/18 00:00 103 08/26/18 21:00 Room Air 08/26/18 20:00 97.9 107 20 136/84 (101) 94 08/26/18 20:00 98 08/26/18 19:54 104 20 Room Air 21 08/26/18 18:24 97.0 08/26/18 16:01 97.0 104 18 121/74 (90) 97 08/26/18 15:14 108 08/26/18 13:19 111 08/26/18 12:00 98.1 104 18 133/64 (87) 97 Intake and Output 08/26/18 08/27/18 19:00 07:00 Intake Total 1677 ml Balance 1677 ml Intake Oral 1080 ml IV Total 597 ml # Voids 3 3 Laboratory Tests 08/27/18 05:00: White Blood Count 7.8, Red Blood Count 4.24L, Hemoglobin 14.1L, Hematocrit 42.2 , Mean Corpuscular Volume 100H, Mean Corpuscular Hemoglobin 33.2H, Mean Corpuscular Hemoglobin Concent 33.3, Red Cell Distribution Width 12.8, Platelet Count 165, Mean Platelet Volume 5.7L, Neutrophils (%) (Auto) 74.1, Lymphocytes ( %) (Auto) 17.3L, Monocytes (%) (Auto) 7.1, Eosinophils (%) (Auto) 1.0, Basophils (%) (Auto) 0.5, Sodium Level 139, Potassium Level 3.0L, Chloride Level 96L, Carbon Dioxide Level 35H, Anion Gap 8, Blood Urea Nitrogen 28H, Creatinine 1.2, Estimat Glomerular Filtration Rate > 60, Glucose Level 191H, Calcium Level 8.4L Height (Feet): 5 Height (Inches): 11.00 Weight (Pounds): 489 Objective GENERAL: Alert, awake, and oriented x3. LUNGS: Decreased breath sounds bilaterally. HEART: S1 and S2, regular. ABDOMEN: Obese, tender ness to palpation with skin changes noted. EXTREMITIES: No cyanosis. No clubbing. No edema. NEURO: No Focal deficits. Eliezer Nicole Aug 27, 2018 08:49
--- NOTE | 2018-08-27 09:05 | Diagnostic Imaging Report ---
Indication: Pain, status post fall Technique: 2 views of the right knee Comparison: none Findings: Exam is very limited. Lateral views are very blurry and only 2 views are available. There is evidence of prior surgical repair of the proximal tibia, which appears healed. No gross acute fractures or dislocations. There are degenerative proliferative changes of the knee. There is lateral compartmental and patellofemoral joint space narrowing. There is suggestion of a small suprapatellar effusion Impression: Limited bordering on nondiagnostic exam, as described. No gross acute abnormality Severe degenerative changes This agrees with the preliminary interpretation provided overnight by [facility] service.
--- NOTE | 2018-08-27 09:07 | Diagnostic Imaging Report ---
Indication: Knee pain Technique: 2 views of the left knee Comparison: None Findings: Exam is limited due to the availability of only 2 views. No acute fractures. No dislocations. There is degenerative narrowing of the patellofemoral joint, degenerative proliferative changes elsewhere. No suprapatellar effusion Impression: Limited exam, as described. No definite acute bony trauma Degenerative changes
[2018-08-27] MEDS ORDERED: Isovue-300 100ml vial INJ PRN (09:15)
--- NOTE | 2018-08-27 12:12 | Pulmonology Progress Note ---
Assessment/Plan Problems: (1) ACS (acute coronary syndrome) (2) COPD (chronic obstructive pulmonary disease) (3) Right heart failure (4) Abdominal pannus (5) ADALBERTO (obstructive sleep apnea) (6) Seizures (7) Morbid obesity Assessment/Plan Dr. Roberts will do the abdominal surgery once pt is medically clear. Respiratory treatment bipap prn at night cardiology f/u serial ekg, troponin continue lasix drip increase dilaudid ot q3 hours watch bun/creatinine symptomatic treatment dvt prophylaxis titrate fio2 to saturation of 92% Subjective ROS Limited/Unobtainable: Yes Constitutional: Reports: no symptoms HEENT: Repors: no symptoms Allergies: Coded Allergies: ASPIRIN (Verified Allergy, Unknown, 07/14/18) KETOROLAC (Verified Allergy, Unknown, 07/14/18) PENICILLINS (Verified Allergy, Unknown, 07/14/18) Objective Last 24 Hour Vital Signs Date Time Temp Pulse Resp B/P (MAP) Pulse Ox O2 Delivery O2 Flow Rate FiO2 08/27/18 09:00 Room Air 08/27/18 08:39 98 20 Nasal Cannula 2.0 28 08/27/18 08:39 Nasal Cannula 2.0 28 08/27/18 08:39 97 Nasal Cannula 2.0 28 08/27/18 08:00 97.8 56 19 129/94 (106) 93 08/27/18 08:00 108 08/27/18 04:00 97.9 93 20 120/58 (78) 96 08/27/18 04:00 90 08/27/18 01:31 96 Nasal Cannula 2.0 28 08/27/18 01:31 Nasal Cannula 2.0 28 08/27/18 01:30 95 20 97 Room Air 21 08/27/18 01:20 98 20 94 Room Air 21 08/27/18 00:00 98.6 98 20 104/64 (77) 96 08/27/18 00:00 103 08/26/18 21:00 Room Air 08/26/18 20:00 97.9 107 20 136/84 (101) 94 08/26/18 20:00 98 08/26/18 19:54 104 20 Room Air 21 08/26/18 18:24 97.0 08/26/18 16:01 97.0 104 18 121/74 (90) 97 08/26/18 15:14 108 08/26/18 13:19 111 Intake and Output 08/26/18 08/27/18 19:00 07:00 Intake Total 1677 ml Balance 1677 ml Intake Oral 1080 ml IV Total 597 ml # Voids 3 3 General Appearance: WD/WN HEENT: atraumatic Respiratory/Chest: chest wall non-tender, lungs clear Cardiovascular: normal peripheral pulses, regularly irregular Extremities: other - edema Laboratory Tests 08/27/18 05:00: White Blood Count 7.8, Red Blood Count 4.24L, Hemoglobin 14.1L, Hematocrit 42.2 , Mean Corpuscular Volume 100H, Mean Corpuscular Hemoglobin 33.2H, Mean Corpuscular Hemoglobin Concent 33.3, Red Cell Distribution Width 12.8, Platelet Count 165, Mean Platelet Volume 5.7L, Neutrophils (%) (Auto) 74.1, Lymphocytes ( %) (Auto) 17.3L, Monocytes (%) (Auto) 7.1, Eosinophils (%) (Auto) 1.0, Basophils (%) (Auto) 0.5, Sodium Level 139, Potassium Level 3.0L, Chloride Level 96L, Carbon Dioxide Level 35H, Anion Gap 8, Blood Urea Nitrogen 28H, Creatinine 1.2, Estimat Glomerular Filtration Rate > 60, Glucose Level 191H, Calcium Level 8.4L Current Medications Medications (Trade) Dose Ordered Sig/Luis Route PRN Reason Start Time Stop Time Status Last Admin Dose Admin Acetaminophen (Tylenol) 650 mg Q4H PRN ORAL FEVER 08/22/18 19:45 09/21/18 19:44 Acetaminophen/ Hydrocodone Bitart ([place] 10/325) 1 tab Q4H PRN ORAL For Pain 08/22/18 19:45 08/29/18 19:44 Albuterol/ Ipratropium (Albuterol/ Ipratropium) 3 ml Q4H PRN HHN Shortness of Breath 08/22/18 19:45 08/27/18 19:44 08/27/18 01:20 Atorvastatin Calcium (Lipitor) 80 mg BEDTIME ORAL 08/22/18 21:00 09/21/18 20:59 08/26/18 20:30 Chlorhexidine Gluconate (Ruby-Hex 2%) 1 applic DAILY@1999 TOPIC 08/25/18 20:00 09/24/18 19:59 08/26/18 20:29 Clopidogrel Bisulfate (Plavix) 75 mg DAILY ORAL 08/23/18 09:00 09/22/18 08:59 08/27/18 08:33 Diltiazem HCl (Cardizem) 10 mg Q1H PRN IV heart rate more than 120, 08/22/18 19:45 09/21/18 19:44 Enalaprilat (Vasotec) 2.5 mg Q6H PRN IV sbp more than 160 08/22/18 19:45 09/21/18 19:44 Furosemide 100 mg/ Dextrose 110 ml @ 11 mls/hr Q10H IV 08/26/18 10:15 09/24/18 14:29 08/27/18 06:39 Gabapentin (Neurontin) 600 mg THREE TIMES A DAY ORAL 08/23/18 09:00 09/22/18 08:59 08/27/18 08:32 Heparin Sodium (Porcine) (Heparin 5000 units/ml) 5,000 units EVERY 12 HOURS SUBQ 08/22/18 21:00 09/21/18 20:59 08/27/18 08:36 Hydromorphone HCl (Dilaudid) 3 mg Q3H PRN IVP Severe Pain (Pain Scale 7-10) 08/26/18 11:45 09/02/18 11:44 08/27/18 09:57 Morphine Sulfate (MS Contin) 15 mg Q12HR ORAL 08/23/18 09:00 08/30/18 08:59 08/27/18 08:34 Nitroglycerin (Ntg) 0.4 mg Q5M PRN SL Prn Chest Pain 08/22/18 19:45 09/21/18 19:44 Ondansetron HCl (Zofran) 4 mg Q6H PRN IVP Nausea & Vomiting 08/22/18 19:45 09/21/18 19:44 Polyethylene Glycol (Miralax) 17 gm DAILYPRN PRN ORAL Constipation 08/22/18 19:45 09/21/18 19:44 Temazepam (Restoril) 15 mg HSPRN PRN ORAL Insomnia 08/22/18 19:45 08/29/18 19:44 Theophylline (George-Dur) 100 mg DAILY ORAL 08/23/18 09:00 09/22/18 08:59 08/27/18 08:32 Trazodone HCl (Desyrel) 100 mg BEDTIME ORAL 08/24/18 21:00 09/23/18 20:59 08/24/18 21:21 Vancomycin HCl (Vanco rx to dose) 1 ea DAILY PRN MISC Per rx protocol 08/26/18 14:45 09/25/18 14:44 Vancomycin HCl/ Dextrose 250 ml @ 125 mls/hr Q8H IVPB 08/27/18 00:00 09/01/18 00:00 08/27/18 08:32 Bill Dixon MD Aug 27, 2018 12:12
--- NOTE | 2018-08-27 12:12 | NUR ---
NURSE NOTES: Informed Dr. Nicole regarding potassium level 3.0. Dr. Nicole contacted with Dr. Jonas. Will continue to plan of care.
--- NOTE | 2018-08-27 12:18 | General Progress Note ---
Assessment/Plan Problem List: (1) Peripheral edema ICD Codes: R60.9 - Edema, unspecified SNOMED: 315114527 (2) COPD (chronic obstructive pulmonary disease) ICD Codes: J44.9 - Chronic obstructive pulmonary disease, unspecified SNOMED: 39691974 Qualifiers: Qualified Codes: J44.9 - Chronic obstructive pulmonary disease, unspecified (3) Leg pain ICD Codes: M79.606 - Pain in leg, unspecified SNOMED: 17637740 (4) Morbid obesity ICD Codes: E66.01 - Morbid (severe) obesity due to excess calories SNOMED: 442494368 (5) Seizures ICD Codes: R56.9 - Unspecified convulsions SNOMED: 34403744 (6) Right heart failure ICD Codes: I50.810 - Right heart failure, unspecified SNOMED: 590731145 (7) ACS (acute coronary syndrome) ICD Codes: I24.9 - Acute ischemic heart disease, unspecified SNOMED: 093032996 (8) Abdominal pannus ICD Codes: E65 - Localized adiposity SNOMED: 2897265875742 Status: unchanged Assessment/Plan o2 pulm tx prn seizure pain control pt diet cbc bmp am dc plan Subjective Constitutional: Reports: weakness Respiratory: Reports: shortness of breath Allergies: Coded Allergies: ASPIRIN (Verified Allergy, Unknown, 07/14/18) KETOROLAC (Verified Allergy, Unknown, 07/14/18) PENICILLINS (Verified Allergy, Unknown, 07/14/18) All Systems: reviewed and negative except above Subjective sitting sob Objective Last 24 Hour Vital Signs Date Time Temp Pulse Resp B/P (MAP) Pulse Ox O2 Delivery O2 Flow Rate FiO2 08/27/18 12:00 97.5 54 19 143/95 (111) 96 08/27/18 09:00 Room Air 08/27/18 08:39 98 20 Nasal Cannula 2.0 28 08/27/18 08:39 Nasal Cannula 2.0 28 08/27/18 08:39 97 Nasal Cannula 2.0 28 08/27/18 08:00 97.8 56 19 129/94 (106) 93 08/27/18 08:00 108 08/27/18 04:00 97.9 93 20 120/58 (78) 96 08/27/18 04:00 90 08/27/18 01:31 96 Nasal Cannula 2.0 28 08/27/18 01:31 Nasal Cannula 2.0 28 08/27/18 01:30 95 20 97 Room Air 21 08/27/18 01:20 98 20 94 Room Air 21 08/27/18 00:00 98.6 98 20 104/64 (77) 96 08/27/18 00:00 103 08/26/18 21:00 Room Air 08/26/18 20:00 97.9 107 20 136/84 (101) 94 08/26/18 20:00 98 08/26/18 19:54 104 20 Room Air 21 08/26/18 18:24 97.0 08/26/18 16:01 97.0 104 18 121/74 (90) 97 08/26/18 15:14 108 08/26/18 13:19 111 Intake and Output 08/26/18 08/27/18 19:00 07:00 Intake Total 1677 ml Balance 1677 ml Intake Oral 1080 ml IV Total 597 ml # Voids 3 3 Laboratory Tests 08/27/18 05:00: White Blood Count 7.8, Red Blood Count 4.24L, Hemoglobin 14.1L, Hematocrit 42.2 , Mean Corpuscular Volume 100H, Mean Corpuscular Hemoglobin 33.2H, Mean Corpuscular Hemoglobin Concent 33.3, Red Cell Distribution Width 12.8, Platelet Count 165, Mean Platelet Volume 5.7L, Neutrophils (%) (Auto) 74.1, Lymphocytes ( %) (Auto) 17.3L, Monocytes (%) (Auto) 7.1, Eosinophils (%) (Auto) 1.0, Basophils (%) (Auto) 0.5, Sodium Level 139, Potassium Level 3.0L, Chloride Level 96L, Carbon Dioxide Level 35H, Anion Gap 8, Blood Urea Nitrogen 28H, Creatinine 1.2, Estimat Glomerular Filtration Rate > 60, Glucose Level 191H, Calcium Level 8.4L Height (Feet): 5 Height (Inches): 11.00 Weight (Pounds): 489 General Appearance: alert EENT: normal ENT inspection Neck: normal alignment Cardiovascular: normal peripheral pulses, normal rate, regular rhythm Respiratory/Chest: chest wall non-tender, decreased breath sounds Abdomen: normal bowel sounds, non tender, soft Extremities: normal inspection Edema: 2+ Arm (L), 2+ Arm (R), 2+ Leg (L), 2+ Leg (R), 2+ Pedal (L), 2+ Pedal ( R), 2+ Generalized Edema: mild edema Neurologic: responsive, motor weakness Skin: normal pigmentation, warm/dry Ernesto Nicole DO Aug 27, 2018 12:18
--- NOTE | 2018-08-27 14:06 | NUR ---
RD ASSESSMENT & RECOMMENDATIONS SEE CARE ACTIVITY FOR COMPLETE ASSESSMENT DAILY ESTIMATED NEEDS: Needs based on obesity, pulmonary, 104kg abw 15-20 kcals/kg 3232-2454 total kcals 1-1.5 g protein/kg 104-156 g total protein Fluid per MD, on lasix mL/kg total fluid mLs NUTRITION DIAGNOSIS: Decreased sodium and fat intake needs R/T cardiac h/o, fluid retention and morbid obesity as evidenced by h/o CHF dx, BL legs w/ edema 4+, on diuretics, w/ BMI>50. CURRENT DIET:Regular PO DIET RECOMMENDATIONS: CARDIAC diet ADDITIONAL RECOMMENDATIONS: * Obtain a standing weight as able or calibrated bedscale wt for accurate CBW-> Per EMR fe=394sse, stated wt= 389lbs * A1C for eval of glycemic control- BG 191 today * Monitor lytes closely w/ diuretics, replete as needed
--- NOTE | 2018-08-27 14:45 | Progress Note ---
DATE: 08/27/2018 SUBJECTIVE: The patient is a 52-year-old male with COPD, still confused, disorganized, and highly anxious. MENTAL STATUS EXAMINATION: A 52-year-old male. Appearance is disheveled. Attitude, irritable and agitated. Affect, guarded and restricted. Intellect is poor. Mood, depressed and anxious. Insight and judgment is poor. DIAGNOSES: 1. Major depressive disorder. 2. Rule out generalized anxiety disorder. PLAN: Continue him on Neurontin and trazodone. 20 minutes of cognitive behavioral therapy to help him identify automatic negative thoughts and help him convert those negative thoughts to more positive thoughts to reduce depression, anxiety, and suicidality. Chart reviewed. Discussed with the staff. Seen and assessed at bedside. Laney Mcghee M.D. DR: SHANEKA JOB#: [id number] CC:
--- NOTE | 2018-08-27 14:52 | NUR ---
TRANSFER TO FLOOR: [facility] Report given to MICAELA Zarate. Belongings and medications given to MICAELA Zarate. Patient is in stable condition. No acute distress/SOB noted. Endorsed plan of care.
--- NOTE | 2018-08-27 15:00 | NUR ---
NURSE NOTES: Received patient on bed. Personal belongings accounted for. Vitals stable. Will continue to monitor.
[2018-08-27] MEDS ORDERED: Enalaprilat 2.5mg/2ml Inj IV PRN (15:30)
[2018-08-27] MEDS ORDERED: Nitroglycerin Subl 0.4mg tab SL PRN (15:30)
[2018-08-27] MEDS ORDERED: Albuterol/Ipratropium 3ml neb HHN PRN (15:30)
[2018-08-27] MEDS ORDERED: Miralax 17gm pkt ORAL PRN (15:30)
[2018-08-27] MEDS ORDERED: dilTIAZem HCl 25mg/5ml Inj IV PRN (15:45)
[2018-08-27] MEDS ORDERED: HYDROcodone/Acetamin 10/325 tab ORAL PRN ×3 (15:45→16:24)
--- NOTE | 2018-08-27 15:59 | Cardiology Progress Note ---
Assessment/Plan Assessment/Plan 1. Most likely noncardiac chest pain. Electrocardiography shows sinus rhythm with premature ventricular complexes with no acute ST and T-wave abnormalities. AMI is ruled out by negative CE. Beta-natriuretic peptide is also within normal limits. Echo reveals normal LV systolic and diastolic function with LVEF at 55% and normal pulmonary artery pressure. 2. History of chronic obstructive pulmonary disease. 3. Obesity hypoventilation syndrome. 4. History of seizure disorder. 5. History of hypertension. 6. Hyperlipidemia. 7. Dc planning today. Subjective Subjective No cardiac events. Clinically the same. Objective Last 24 Hour Vital Signs Date Time Temp Pulse Resp B/P (MAP) Pulse Ox O2 Delivery O2 Flow Rate FiO2 08/27/18 12:00 96 08/27/18 12:00 97.5 54 19 143/95 (111) 96 08/27/18 09:00 Room Air 08/27/18 08:39 98 20 Nasal Cannula 2.0 28 08/27/18 08:39 Nasal Cannula 2.0 28 08/27/18 08:39 97 Nasal Cannula 2.0 28 08/27/18 08:00 97.8 56 19 129/94 (106) 93 08/27/18 08:00 108 08/27/18 04:00 97.9 93 20 120/58 (78) 96 08/27/18 04:00 90 08/27/18 01:31 96 Nasal Cannula 2.0 28 08/27/18 01:31 Nasal Cannula 2.0 28 08/27/18 01:30 95 20 97 Room Air 21 08/27/18 01:20 98 20 94 Room Air 21 08/27/18 00:00 98.6 98 20 104/64 (77) 96 08/27/18 00:00 103 08/26/18 21:00 Room Air 08/26/18 20:00 97.9 107 20 136/84 (101) 94 08/26/18 20:00 98 08/26/18 19:54 104 20 Room Air 21 08/26/18 18:24 97.0 08/26/18 16:01 97.0 104 18 121/74 (90) 97 Intake and Output 08/26/18 08/27/18 19:00 07:00 Intake Total 1677 ml Balance 1677 ml Intake Oral 1080 ml IV Total 597 ml # Voids 3 3 2D Echo: LVEF 65%, Milkd LVH, Moderate SELAM, RVSP 25 mmHg Laboratory Tests Test 08/27/18 05:00 White Blood Count 7.8 K/UL (4.8-10.8) Red Blood Count 4.24 M/UL (4.70-6.10) L Hemoglobin 14.1 G/DL (14.2-18.0) L Hematocrit 42.2 % (42.0-52.0) Mean Corpuscular Volume 100 FL (80-99) H Mean Corpuscular Hemoglobin 33.2 PG (27.0-31.0) H Mean Corpuscular Hemoglobin Concent 33.3 G/DL (32.0-36.0) Red Cell Distribution Width 12.8 % (11.6-14.8) Platelet Count 165 K/UL (150-450) Mean Platelet Volume 5.7 FL (6.5-10.1) L Neutrophils (%) (Auto) 74.1 % (45.0-75.0) Lymphocytes (%) (Auto) 17.3 % (20.0-45.0) L Monocytes (%) (Auto) 7.1 % (1.0-10.0) Eosinophils (%) (Auto) 1.0 % (0.0-3.0) Basophils (%) (Auto) 0.5 % (0.0-2.0) Sodium Level 139 MMOL/L (136-145) Potassium Level 3.0 MMOL/L (3.5-5.1) L Chloride Level 96 MMOL/L (98-107) L Carbon Dioxide Level 35 MMOL/L (21-32) H Anion Gap 8 mmol/L (5-15) Blood Urea Nitrogen 28 mg/dL (7-18) H Creatinine 1.2 MG/DL (0.55-1.30) Estimat Glomerular Filtration Rate > 60 mL/min (>60) Glucose Level 191 MG/DL (74-106) H Calcium Level 8.4 MG/DL (8.5-10.1) L Objective HEENT: Atraumatic and normocephalic. Anicteric. Pupils are equal, round, and reactive to light and accommodation. Extraocular muscles intact. NECK: JVP less than 5 cm. No carotid bruit. Carotid upstrokes 2+ bilaterally. CVS: Normal S1, S2. Regular rate and rhythm. No murmurs, gallops, or rubs. LUNGS: Diminished breath sounds bilaterally. ABDOMEN: Large pannus. Cannot appreciate hepatosplenomegaly. Positive bowel sounds. EXTREMITIES: There is no evidence of edema, clubbing, or cyanosis. Carlos Martins MD Aug 27, 2018 15:59
--- NOTE | 2018-08-27 16:52 | NUR ---
Social Service Note Patient referred to [facility] [phone] (p) [phone] (f).
[2018-08-27] MEDS: Vancomycin 1.5gm/D5W Premix 250 ML IVPB SCH (17:43)
--- NOTE | 2018-08-27 19:20 | NUR ---
HAND-OFF: Report given to MICAELA Askew.
--- NOTE | 2018-08-27 19:34 | NUR ---
NURSE NOTES: Received patient in bed, awake, alert, oriented, no acute distress noted, call light is within reach, bed is in low position, locked and alarm is on, will continue to monitor for safety and comfort.
[2018-08-27] MEDS: Dyna-Hex 2% Top Sol 2oz TOPIC SCH (20:06)
[2018-08-27] MEDS: Atorvastatin 80mg tab ORAL SCH (20:06)
[2018-08-27] MEDS: TraZODone 100mg tab ORAL SCH (20:14)
[2018-08-28] VITALS: BP 146/88
[2018-08-28] MEDS: Albuterol/Ipratropium 3ml neb HHN PRN ×3 (03:11→22:47)
[2018-08-28 04:00] VITALS: BP 129/89
[2018-08-28 05:58] LABS: BASOPHILS % (AUTO) 0.5 % (0.0-2.0); EOSINOPHILS % (AUTO) 1.4 % (0.0-3.0); HEMATOCRIT 42.3 % (42.0-52.0); HEMOGLOBIN 14.3 G/DL (14.2-18.0); MEAN CORPUSCULAR VOLUME 98 FL (80-99); NEUTROPHILS % (AUTO) 70.2 % (45.0-75.0); PLATELET COUNT 152 K/UL (150-450); RED BLOOD COUNT 4.33 M/UL (4.70-6.10); RED CELL DISTRIBUTION WIDTH 12.4 % (11.6-14.8); WHITE BLOOD COUNT 7.1 K/UL (4.8-10.8)
[2018-08-28 06:17] LABS: ANION GAP 7 mmol/L (5-15); BLOOD UREA NITROGEN 27 mg/dL (7-18); CALCIUM 8.9 MG/DL (8.5-10.1); CARBON DIOXIDE 35 MMOL/L (21-32); CHLORIDE 99 MMOL/L (98-107); CREATININE 1.1 MG/DL (0.55-1.30); POTASSIUM 3.2 MMOL/L (3.5-5.1); SODIUM 141 MMOL/L (136-145)
--- NOTE | 2018-08-28 07:36 | NUR ---
HAND-OFF: Report given to Arlette HINOJOSA.
--- NOTE | 2018-08-28 07:47 | NUR ---
Nurse notes received patient sitting on the edge of the bed eating, no sign of distress,PICC line patent , on fall precaution observed and maintained, plan of care was discussed verbalized understanding 4P's in progress call light w/n lazara alicea rn
[2018-08-28 08:00] VITALS: BP 140/82
[2018-08-28] MEDS: Vancomycin 1.5gm/D5W Premix 250 ML IVPB SCH ×3 (08:03→16:08)
[2018-08-28] MEDS: Theophylline ER 100mg ORAL SCH (08:03)
[2018-08-28] MEDS: MS Contin 15mg tab ORAL SCH ×2 (08:03→21:00)
[2018-08-28] MEDS: Heparin 5000 units/ml inj SUBQ SCH ×2 (08:05→21:00)
--- NOTE | 2018-08-28 08:52 | General Progress Note ---
Assessment/Plan Assessment/Plan (1) Lumbar DDD (2) Lumbar Spondylosis (3) Lumbar Radiculopathy (4) Morbid Obesity (5) Right knee pain (6) Right knee OA h/o ORIF Patient will be continued on Morphine ER and Dilaudid D/w Dr. Magaña and he concurred. Subjective Date patient seen: Aug 28, 2018 Time patient seen: 07:15 - am Allergies: Coded Allergies: ASPIRIN (Verified Allergy, Unknown, 07/14/18) KETOROLAC (Verified Allergy, Unknown, 07/14/18) PENICILLINS (Verified Allergy, Unknown, 07/14/18) Subjective REVIEW OF SYSTEMS: Denies rash, fever, chills, sweating, dizziness, drowsiness, blurred vision, sore throat, change in weight. No nausea, vomiting, diarrhea, or blood in the stool or urine. No bowel or bladder incontinence. No dysuria. He is complaining of low back pain and right lower extremity pain. SUBJECTIVE: Patient is comfortable still c/o pain which has been unchanged and tolerated on the Morphine ER and Dilaudid. He has no new complaints at this time. Objective Last 24 Hour Vital Signs Date Time Temp Pulse Resp B/P (MAP) Pulse Ox O2 Delivery O2 Flow Rate FiO2 08/28/18 08:00 98.2 111 20 140/82 (101) 08/28/18 04:00 98.6 105 20 129/89 (102) 08/28/18 03:13 103 20 99 Room Air 21 08/28/18 03:00 102 20 95 Room Air 21 08/28/18 00:00 97.4 81 20 146/88 (107) 81 08/27/18 21:00 Room Air 08/27/18 20:30 109 20 98 Room Air 21 08/27/18 20:20 104 20 96 Room Air 21 08/27/18 20:00 105 20 Room Air 21 08/27/18 20:00 98.3 103 20 154/95 (114) 08/27/18 20:00 98 Room Air 21 08/27/18 20:00 Room Air 21 08/27/18 16:01 98.0 56 18 128/77 (94) 98 08/27/18 16:00 97.2 82 18 166/75 (105) 92 08/27/18 12:00 96 08/27/18 12:00 97.5 54 19 143/95 (111) 96 08/27/18 09:00 Room Air Intake and Output 08/27/18 08/28/18 18:59 06:59 Intake Total 947 ml 488 ml Balance 947 ml 488 ml Intake Oral 800 ml IV Total 147 ml 88 ml Other 400 ml # Voids 2 3 Laboratory Tests 08/27/18 15:48: Vancomycin Level Trough 15.0H 08/28/18 05:42: White Blood Count 7.1, Red Blood Count 4.33L, Hemoglobin 14.3, Hematocrit 42.3, Mean Corpuscular Volume 98, Mean Corpuscular Hemoglobin 33.1H, Mean Corpuscular Hemoglobin Concent 33.9, Red Cell Distribution Width 12.4, Platelet Count 152, Mean Platelet Volume 5.6L, Neutrophils (%) (Auto) 70.2, Lymphocytes (%) (Auto) 21.0, Monocytes (%) (Auto) 7.0, Eosinophils (%) (Auto) 1.4, Basophils (%) (Auto ) 0.5, Sodium Level 141, Potassium Level 3.2L, Chloride Level 99, Carbon Dioxide Level 35H, Anion Gap 7, Blood Urea Nitrogen 27H, Creatinine 1.1, Estimat Glomerular Filtration Rate > 60, Glucose Level 111H, Calcium Level 8.9 Height (Feet): 5 Height (Inches): 11.00 Weight (Pounds): 489 Objective GENERAL: Alert, awake, and oriented x3. LUNGS: Decreased breath sounds bilaterally. HEART: S1 and S2, regular. ABDOMEN: Obese, tender ness to palpation with skin changes noted. EXTREMITIES: No cyanosis. No clubbing. No edema. NEURO: No Focal deficits. Eliezer Nicole Aug 28, 2018 08:52
--- NOTE | 2018-08-28 09:45 | NUR ---
nurse notes patient ambulate using a walker 100 ft with physical therapy, tolerated well deanne powers
--- NOTE | 2018-08-28 10:14 | NUR ---
nurse notes both lower extremities swollen +3 , instructed patient to elevate both lower extremities on pillows , patient refused, stated he doesnt want , prefers to sit on the edge of the bed gio alicea
[2018-08-28 11:54] VITALS: BP 151/103
--- NOTE | 2018-08-28 12:39 | Infectious Diseases Prog Note ---
Assessment/Plan Assessment/Plan 52 yo male with PMHx of Seizures, COPD and CHF who was [facility] for SOB. Posterior neck mass \ Most likely inflamed lipoma per US read Unable to get MRI or CT so will continue abx as this will treat any cellulitic component of his inflamed pannus as well. No fever No leukocytosis 08/26/18 US neck shows possible lipoma Facial sores. Likely some sort of staph infection Sores seem to be healing. Pannus Erythema of skin - PPT PLAN -Continue Vancomyin #3 Consider switching to cefazolin if not improving - Monitor CBC and Temps We will continue to follow the patient during this hospitalization. Subjective Allergies: Coded Allergies: ASPIRIN (Verified Allergy, Unknown, 07/14/18) KETOROLAC (Verified Allergy, Unknown, 07/14/18) PENICILLINS (Verified Allergy, Unknown, 07/14/18) Subjective Patient reports worsening edema and pain in his feet and pannus He is on Dilaudid Afebrile No leukocytosis Patient too large for CT scanner Objective Vital Signs Last 24 Hour Vital Signs Date Time Temp Pulse Resp B/P (MAP) Pulse Ox O2 Delivery O2 Flow Rate FiO2 08/28/18 11:54 98.2 97 20 151/103 (119) 08/28/18 08:20 Room Air 08/28/18 08:00 98.2 111 20 140/82 (101) 08/28/18 04:00 98.6 105 20 129/89 (102) 08/28/18 03:13 103 20 99 Room Air 21 08/28/18 03:00 102 20 95 Room Air 21 08/28/18 00:00 97.4 81 20 146/88 (107) 81 08/27/18 21:00 Room Air 08/27/18 20:30 109 20 98 Room Air 21 08/27/18 20:20 104 20 96 Room Air 21 08/27/18 20:00 105 20 Room Air 21 08/27/18 20:00 98.3 103 20 154/95 (114) 08/27/18 20:00 98 Room Air 21 08/27/18 20:00 Room Air 21 08/27/18 16:01 98.0 56 18 128/77 (94) 98 08/27/18 16:00 97.2 82 18 166/75 (105) 92 Height (Feet): 5 Height (Inches): 11.00 Weight (Pounds): 489 Objective Gen: NAD, well appearing, alert HEENT: NCAT, MMM, EOMl LUNGS: CTAB, No W CARDS: RRR, S1, S2, No M/R/G, ABD: Soft, Obese, Enlarged pannus with mild erythema and TTP. No warmth. + BS Ext: Severe edema of feet, Pulses 2+ B/L (DP, Rad): NEURO: A/O x 4, Strength and Sensation Grossly intact SKIN: Small scabbed sores on for head and arms (healing) posterior left neck with 3-4cm area of pain with swelling. Erythema and warmth resolved Laboratory Tests Test 08/27/18 15:48 08/28/18 05:42 Vancomycin Level Trough 15.0 ug/mL (5.0-12.0) H White Blood Count 7.1 K/UL (4.8-10.8) Red Blood Count 4.33 M/UL (4.70-6.10) L Hemoglobin 14.3 G/DL (14.2-18.0) Hematocrit 42.3 % (42.0-52.0) Mean Corpuscular Volume 98 FL (80-99) Mean Corpuscular Hemoglobin 33.1 PG (27.0-31.0) H Mean Corpuscular Hemoglobin Concent 33.9 G/DL (32.0-36.0) Red Cell Distribution Width 12.4 % (11.6-14.8) Platelet Count 152 K/UL (150-450) Mean Platelet Volume 5.6 FL (6.5-10.1) L Neutrophils (%) (Auto) 70.2 % (45.0-75.0) Lymphocytes (%) (Auto) 21.0 % (20.0-45.0) Monocytes (%) (Auto) 7.0 % (1.0-10.0) Eosinophils (%) (Auto) 1.4 % (0.0-3.0) Basophils (%) (Auto) 0.5 % (0.0-2.0) Sodium Level 141 MMOL/L (136-145) Potassium Level 3.2 MMOL/L (3.5-5.1) L Chloride Level 99 MMOL/L (98-107) Carbon Dioxide Level 35 MMOL/L (21-32) H Anion Gap 7 mmol/L (5-15) Blood Urea Nitrogen 27 mg/dL (7-18) H Creatinine 1.1 MG/DL (0.55-1.30) Estimat Glomerular Filtration Rate > 60 mL/min (>60) Glucose Level 111 MG/DL (74-106) H Calcium Level 8.9 MG/DL (8.5-10.1) Current Medications Medications (Trade) Dose Ordered Sig/Luis Route PRN Reason Start Time Stop Time Status Last Admin Dose Admin Acetaminophen (Tylenol) 650 mg Q4H PRN ORAL FEVER 08/27/18 15:30 09/21/18 15:29 Acetaminophen/ Hydrocodone Bitart ([place] 10) 1 tab Q4H PRN ORAL pain 3-6 08/27/18 16:24 09/03/18 16:23 Albuterol/ Ipratropium (Albuterol/ Ipratropium) 3 ml Q4H PRN HHN Shortness of Breath 08/27/18 18:45 09/01/18 18:44 08/28/18 03:11 Atorvastatin Calcium (Lipitor) 80 mg BEDTIME ORAL 08/27/18 21:00 09/21/18 20:59 08/27/18 20:06 Chlorhexidine Gluconate (Ruby-Hex 2%) 1 applic DAILY@2000 TOPIC 08/27/18 20:00 09/24/18 19:59 08/27/18 20:06 Clopidogrel Bisulfate (Plavix) 75 mg DAILY ORAL 08/28/18 09:00 09/22/18 08:59 08/28/18 08:04 Enalaprilat (Vasotec) 2.5 mg Q6H PRN IV sbp more than 160 08/27/18 15:30 09/21/18 15:29 Furosemide 100 mg/ Dextrose 110 ml @ 11 mls/hr Q10H IV 08/27/18 16:00 09/24/18 15:59 08/28/18 12:02 Gabapentin (Neurontin) 600 mg THREE TIMES A DAY ORAL 08/27/18 18:00 09/22/18 08:59 08/28/18 12:02 Heparin Sodium (Porcine) (Heparin 5000 units/ml) 5,000 units EVERY 12 HOURS SUBQ 08/27/18 21:00 09/21/18 20:59 08/27/18 20:08 Hydromorphone HCl (Dilaudid) 3 mg Q3H PRN IVP Severe Pain (Pain Scale 7-10) 08/27/18 16:02 09/02/18 16:01 08/28/18 12:02 Morphine Sulfate (MS Contin) 15 mg Q12HR ORAL 08/27/18 21:00 08/30/18 08:59 08/28/18 08:03 Nitroglycerin (Ntg) 0.4 mg Q5M PRN SL Prn Chest Pain 08/27/18 15:30 09/21/18 15:29 Ondansetron HCl (Zofran) 4 mg Q6H PRN IVP Nausea & Vomiting 08/27/18 15:30 09/21/18 15:29 Polyethylene Glycol (Miralax) 17 gm DAILYPRN PRN ORAL Constipation 08/27/18 15:30 09/21/18 15:29 Temazepam (Restoril) 15 mg HSPRN PRN ORAL Insomnia 08/27/18 21:00 08/29/18 20:59 Theophylline (George-Dur) 100 mg DAILY ORAL 08/28/18 09:00 09/22/18 08:59 08/28/18 08:03 Trazodone HCl (Desyrel) 100 mg BEDTIME ORAL 08/27/18 21:00 09/23/18 20:59 08/27/18 20:14 Vancomycin HCl (Vanco rx to dose) 1 ea DAILY PRN MISC Per rx protocol 08/27/18 16:00 09/26/18 15:59 Vancomycin HCl/ Dextrose 250 ml @ 125 mls/hr Q8H IVPB 08/27/18 16:00 09/01/18 00:00 08/28/18 08:03 Elliot Chauhan MD Aug 28, 2018 12:39
--- NOTE | 2018-08-28 12:53 | General Progress Note ---
Progress Note Progress Note FULL CONSULT DICTATED Misty Jonas MD Aug 28, 2018 12:53
--- NOTE | 2018-08-28 13:16 | General Progress Note ---
Assessment/Plan Problem List: (1) Peripheral edema ICD Codes: R60.9 - Edema, unspecified SNOMED: 660408703 (2) COPD (chronic obstructive pulmonary disease) ICD Codes: J44.9 - Chronic obstructive pulmonary disease, unspecified SNOMED: 69755412 Qualifiers: Qualified Codes: J44.9 - Chronic obstructive pulmonary disease, unspecified (3) Leg pain ICD Codes: M79.606 - Pain in leg, unspecified SNOMED: 41990856 (4) Morbid obesity ICD Codes: E66.01 - Morbid (severe) obesity due to excess calories SNOMED: 537934768 (5) Seizures ICD Codes: R56.9 - Unspecified convulsions SNOMED: 55762105 (6) Right heart failure ICD Codes: I50.810 - Right heart failure, unspecified SNOMED: 319296844 (7) ACS (acute coronary syndrome) ICD Codes: I24.9 - Acute ischemic heart disease, unspecified SNOMED: 043442113 (8) Abdominal pannus ICD Codes: E65 - Localized adiposity SNOMED: 9853935062540 (9) Abdominal wall cellulitis ICD Codes: L03.311 - Cellulitis of abdominal wall SNOMED: 72067356 Status: unchanged Assessment/Plan o2 pulm tx abx prn seizure pain control pt diet cbc bmp am dc plan Subjective Constitutional: Reports: weakness Allergies: Coded Allergies: ASPIRIN (Verified Allergy, Unknown, 07/14/18) KETOROLAC (Verified Allergy, Unknown, 07/14/18) PENICILLINS (Verified Allergy, Unknown, 07/14/18) All Systems: reviewed and negative except above Subjective sitting sob Objective Last 24 Hour Vital Signs Date Time Temp Pulse Resp B/P (MAP) Pulse Ox O2 Delivery O2 Flow Rate FiO2 08/28/18 11:54 98.2 97 20 151/103 (119) 08/28/18 08:20 Room Air 08/28/18 08:00 98.2 111 20 140/82 (101) 08/28/18 04:00 98.6 105 20 129/89 (102) 08/28/18 03:13 103 20 99 Room Air 21 08/28/18 03:00 102 20 95 Room Air 21 08/28/18 00:00 97.4 81 20 146/88 (107) 81 08/27/18 21:00 Room Air 08/27/18 20:30 109 20 98 Room Air 21 08/27/18 20:20 104 20 96 Room Air 21 08/27/18 20:00 105 20 Room Air 21 08/27/18 20:00 98.3 103 20 154/95 (114) 08/27/18 20:00 98 Room Air 21 08/27/18 20:00 Room Air 21 08/27/18 16:01 98.0 56 18 128/77 (94) 98 08/27/18 16:00 97.2 82 18 166/75 (105) 92 Intake and Output 08/27/18 08/28/18 19:00 07:00 Intake Total 947 ml 488 ml Balance 947 ml 488 ml Intake Oral 800 ml IV Total 147 ml 88 ml Other 400 ml # Voids 2 3 Laboratory Tests 08/27/18 15:48: Vancomycin Level Trough 15.0H 08/28/18 05:42: White Blood Count 7.1, Red Blood Count 4.33L, Hemoglobin 14.3, Hematocrit 42.3, Mean Corpuscular Volume 98, Mean Corpuscular Hemoglobin 33.1H, Mean Corpuscular Hemoglobin Concent 33.9, Red Cell Distribution Width 12.4, Platelet Count 152, Mean Platelet Volume 5.6L, Neutrophils (%) (Auto) 70.2, Lymphocytes (%) (Auto) 21.0, Monocytes (%) (Auto) 7.0, Eosinophils (%) (Auto) 1.4, Basophils (%) (Auto ) 0.5, Sodium Level 141, Potassium Level 3.2L, Chloride Level 99, Carbon Dioxide Level 35H, Anion Gap 7, Blood Urea Nitrogen 27H, Creatinine 1.1, Estimat Glomerular Filtration Rate > 60, Glucose Level 111H, Calcium Level 8.9 Height (Feet): 5 Height (Inches): 11.00 Weight (Pounds): 489 General Appearance: alert EENT: normal ENT inspection Neck: normal alignment Cardiovascular: normal peripheral pulses, normal rate, regular rhythm Respiratory/Chest: chest wall non-tender, decreased breath sounds Abdomen: normal bowel sounds, non tender, soft Extremities: normal inspection Edema: 2+ Arm (L), 2+ Arm (R), 2+ Leg (L), 2+ Leg (R), 2+ Pedal (L), 2+ Pedal ( R), 2+ Generalized Edema: mild edema Neurologic: responsive, motor weakness Skin: normal pigmentation, warm/dry Ernesto Nicole DO Aug 28, 2018 13:16
--- NOTE | 2018-08-28 14:37 | Pulmonology Progress Note ---
Assessment/Plan Problems: (1) ACS (acute coronary syndrome) (2) COPD (chronic obstructive pulmonary disease) (3) Right heart failure (4) Abdominal pannus (5) ADALBERTO (obstructive sleep apnea) (6) Seizures (7) Morbid obesity Assessment/Plan still diuresing a lot bipap prn at night cardiology f/u serial ekg, troponin continue lasix drip increase dilaudid ot q3 hours watch bun/creatinine symptomatic treatment dvt prophylaxis titrate fio2 to saturation of 92% Subjective ROS Limited/Unobtainable: No Constitutional: Reports: no symptoms HEENT: Repors: no symptoms Respiratory: Reports: no symptoms Allergies: Coded Allergies: ASPIRIN (Verified Allergy, Unknown, 07/14/18) KETOROLAC (Verified Allergy, Unknown, 07/14/18) PENICILLINS (Verified Allergy, Unknown, 07/14/18) Objective Last 24 Hour Vital Signs Date Time Temp Pulse Resp B/P (MAP) Pulse Ox O2 Delivery O2 Flow Rate FiO2 08/28/18 14:19 106 20 99 Nasal Cannula 2.0 28 08/28/18 14:07 104 18 96 Room Air 21 08/28/18 14:00 96 Room Air 21 08/28/18 14:00 104 20 Room Air 21 08/28/18 14:00 Room Air 21 08/28/18 11:54 98.2 97 20 151/103 (119) 08/28/18 08:20 Room Air 08/28/18 08:00 98.2 111 20 140/82 (101) 08/28/18 04:00 98.6 105 20 129/89 (102) 08/28/18 03:13 103 20 99 Room Air 21 08/28/18 03:00 102 20 95 Room Air 21 08/28/18 00:00 97.4 81 20 146/88 (107) 81 08/27/18 21:00 Room Air 08/27/18 20:30 109 20 98 Room Air 21 08/27/18 20:20 104 20 96 Room Air 21 08/27/18 20:00 105 20 Room Air 21 08/27/18 20:00 98.3 103 20 154/95 (114) 08/27/18 20:00 98 Room Air 21 08/27/18 20:00 Room Air 21 08/27/18 16:01 98.0 56 18 128/77 (94) 98 08/27/18 16:00 97.2 82 18 166/75 (105) 92 Intake and Output 08/27/18 08/28/18 19:00 07:00 Intake Total 947 ml 488 ml Balance 947 ml 488 ml Intake Oral 800 ml IV Total 147 ml 88 ml Other 400 ml # Voids 2 3 General Appearance: WD/WN HEENT: normocephalic, anicteric Respiratory/Chest: chest wall non-tender, lungs clear Cardiovascular: normal peripheral pulses, normal rate Abdomen: normal bowel sounds, no organomegaly Genitourinary: normal external genitalia Extremities: no clubbing Laboratory Tests 08/27/18 15:48: Vancomycin Level Trough 15.0H 08/28/18 05:42: White Blood Count 7.1, Red Blood Count 4.33L, Hemoglobin 14.3, Hematocrit 42.3, Mean Corpuscular Volume 98, Mean Corpuscular Hemoglobin 33.1H, Mean Corpuscular Hemoglobin Concent 33.9, Red Cell Distribution Width 12.4, Platelet Count 152, Mean Platelet Volume 5.6L, Neutrophils (%) (Auto) 70.2, Lymphocytes (%) (Auto) 21.0, Monocytes (%) (Auto) 7.0, Eosinophils (%) (Auto) 1.4, Basophils (%) (Auto ) 0.5, Sodium Level 141, Potassium Level 3.2L, Chloride Level 99, Carbon Dioxide Level 35H, Anion Gap 7, Blood Urea Nitrogen 27H, Creatinine 1.1, Estimat Glomerular Filtration Rate > 60, Glucose Level 111H, Calcium Level 8.9 Current Medications Medications (Trade) Dose Ordered Sig/Luis Route PRN Reason Start Time Stop Time Status Last Admin Dose Admin Acetaminophen (Tylenol) 650 mg Q4H PRN ORAL FEVER 08/27/18 15:30 09/21/18 15:29 Acetaminophen/ Hydrocodone Bitart ([place] 10/325) 1 tab Q4H PRN ORAL pain 3-6 08/27/18 16:24 09/03/18 16:23 Albuterol/ Ipratropium (Albuterol/ Ipratropium) 3 ml Q4H PRN HHN Shortness of Breath 08/27/18 18:45 09/01/18 18:44 08/28/18 14:07 Atorvastatin Calcium (Lipitor) 80 mg BEDTIME ORAL 08/27/18 21:00 09/21/18 20:59 08/27/18 20:06 Chlorhexidine Gluconate (Ruby-Hex 2%) 1 applic DAILY@2000 TOPIC 08/27/18 20:00 09/24/18 19:59 08/27/18 20:06 Clopidogrel Bisulfate (Plavix) 75 mg DAILY ORAL 08/28/18 09:00 09/22/18 08:59 08/28/18 08:04 Enalaprilat (Vasotec) 2.5 mg Q6H PRN IV sbp more than 160 08/27/18 15:30 09/21/18 15:29 Furosemide 100 mg/ Dextrose 110 ml @ 11 mls/hr Q10H IV 08/27/18 16:00 09/24/18 15:59 08/28/18 12:02 Gabapentin (Neurontin) 600 mg THREE TIMES A DAY ORAL 08/27/18 18:00 09/22/18 08:59 08/28/18 12:02 Heparin Sodium (Porcine) (Heparin 5000 units/ml) 5,000 units EVERY 12 HOURS SUBQ 08/27/18 21:00 09/21/18 20:59 08/27/18 20:08 Hydromorphone HCl (Dilaudid) 3 mg Q3H PRN IVP Severe Pain (Pain Scale 7-10) 08/27/18 16:02 09/02/18 16:01 08/28/18 12:02 Morphine Sulfate (MS Contin) 15 mg Q12HR ORAL 08/27/18 21:00 08/30/18 08:59 08/28/18 08:03 Nitroglycerin (Ntg) 0.4 mg Q5M PRN SL Prn Chest Pain 08/27/18 15:30 09/21/18 15:29 Ondansetron HCl (Zofran) 4 mg Q6H PRN IVP Nausea & Vomiting 08/27/18 15:30 09/21/18 15:29 Polyethylene Glycol (Miralax) 17 gm DAILYPRN PRN ORAL Constipation 08/27/18 15:30 09/21/18 15:29 Temazepam (Restoril) 15 mg HSPRN PRN ORAL Insomnia 08/27/18 21:00 08/29/18 20:59 Theophylline (George-Dur) 100 mg DAILY ORAL 08/28/18 09:00 09/22/18 08:59 08/28/18 08:03 Trazodone HCl (Desyrel) 100 mg BEDTIME ORAL 08/27/18 21:00 09/23/18 20:59 08/27/18 20:14 Vancomycin HCl (Vanco rx to dose) 1 ea DAILY PRN MISC Per rx protocol 08/27/18 16:00 09/26/18 15:59 Vancomycin HCl/ Dextrose 250 ml @ 125 mls/hr Q8H IVPB 08/27/18 16:00 09/01/18 00:00 08/28/18 08:03 Bill Dixon MD Aug 28, 2018 14:37
[2018-08-28 15:37] VITALS: BP 136/84
--- NOTE | 2018-08-28 16:30 | Consultation ---
DATE OF CONSULTATION: 08/28/2018 NEPHROLOGY CONSULTATION CONSULTING PHYSICIAN: Misty Jonas M.D. REFERRING PHYSICIAN: Ernesto Nicole D.O. REASON FOR CONSULTATION: Acute renal failure and electrolyte imbalance. HISTORY OF PRESENT ILLNESS: The patient is an unfortunate 52-year-old male with past medical history significant for history of COPD, morbid obesity, history of seizure disorder, and hypertension. He was readmitted at [facility] on 08/22/2018 with diagnosis of chest pain and increasing dyspnea on exertion, increasing lower extremity swelling and COPD. The patient was admitted to the hospital, was started on Lasix. Over the course of hospital admission, the patient found to have cellulitis of the lower extremities. He also found to have increasing erythema and warmth on his pannus of the abdomen. The patient was started on IV antibiotics, and I was called for management of renal disease and electrolyte imbalance. ALLERGIES: He is allergic to aspirin and Ketorolac. FAMILY HISTORY: Negative for any history of chronic kidney disease. SOCIAL HISTORY: Denies any history of tobacco, alcohol, or drug use. REVIEW OF SYSTEMS: GENERAL: He complained of generalized weakness. Denied any fever, chills, or night sweats. HEAD AND NECK: Denies any dysphagia, odynophagia, blurry vision, headache, or neck stiffness. PULMONARY: Complained of shortness of breath, cough, sputum, or orthopnea. GASTROINTESTINAL: Denied any nausea, vomiting, diarrhea, hematemesis, or hematochezia. He has pannus area of his abdomen. He complained of redness and increase in redness and warmth in the abdominal wall. He also complained of secretion from the belly button. EXTREMITIES: He complained of increasing lower extremity edema, redness and infection. MEDICATIONS: 1. Tylenol 650 mg q.6 h. p.r.n. pain. 2. Plavix 75 mg daily. 3. Atorvastatin 80 mg daily. 4. Temazepam 15 mg daily. 5. Trazodone 100 mg daily. 6. Albuterol and Atrovent p.r.n. shortness of breath. 7. Gabapentin 600 mg daily. 8. Dilaudid 3 mg p.r.n. 9. Lasix ____ 10 mg/hour. 10. Vancomycin. 11. Vasotec 2.5 mg daily. 12. Nitro p.r.n. 13. Zofran p.r.n. PHYSICAL EXAMINATION: VITAL SIGNS: The patient has temperature of 98, blood pressure 129/89, pulse rate 103, and respiratory rate 18. HEAD AND NECK: No JVP. No LAD. No thyromegaly. Extraocular movement intact. Pupils are reactive to light and accommodation. LUNGS: Decreased breathing sound on both sides. CARDIAC: Regular rate and rhythm. S1-S2. No murmur. No rub. ABDOMEN: Obese and has enlarged pannus, which is red, is swollen and he also has some secretion from his belly button. EXTREMITIES: Both lower extremities have edema, increasing redness, chronic changes, left more than right. LABORATORY AND DIAGNOSTIC DATA: Lab values revealed WBC count of 7.5, hemoglobin 14.3, hematocrit 42, and platelet count 152. Chemistry revealed sodium 141, potassium 3.2, chloride 99, bicarb 35, BUN 27, and creatinine 1.1. Glucose 111. Calcium 8.6. There is no UA. ASSESSMENT: 1. Persistent hypokalemia, most likely renal loss. 2. Prerenal azotemia. 3. Fluid overload. 4. Cellulitis of abdominal wall and pannus. 5. Cellulitis of the lower extremity. PLAN: Plan for the patient to check I's and O's, daily weights. Monitor renal function and electrolytes closely. Check the magnesium level. Replace the potassium. Avoid any NSAID and nephrotoxics. At the end, I would like to thank Dr. Ernesto Nicole for allowing me to participate in the care of this patient. Misty Jonas M.D. DR: BOSTON JOB#: [id number] CC:
--- NOTE | 2018-08-28 18:30 | Progress Note ---
DATE: 08/28/2018 SUBJECTIVE: The patient is a 52-year-old male patient with COPD confusion, disorganized thought process, and mood lability, high levels of anxiety worsened by stress of his medical illness, so he is in the hospital because of COPD versus anxiety appears to be getting worse, that is why the attending has requested daily psychiatric consultation. MENTAL STATUS EXAMINATION: This patient is a 52-year-old male. Appearance is disheveled. Attitude, irritable and agitated. Affect, guarded and restricted. Intellect poor. Mood depressed and anxious. Motor activity, psychomotor agitation. Attention span is poor. Orientation x2. Speech is low volume and slurred. Thought process, disorganized and illogical. Thought content, denies auditory and visual hallucination and delusion. Insight and judgment is poor. DIAGNOSIS: Major depressive disorder, mild, recurrent, rule out generalized anxiety disorder. PLAN: Continue to treat this patient with Neurontin 600 mg three times a day, trazodone 50 mg at bedtime. Provided him with 20 minutes of supportive psychotherapy. 20 minutes of cognitive behavioral therapy to help him identify automatic negative thoughts and help him to convert those negative thoughts to more positive thoughts to reduce depression, anxiety, and suicidality. Chart reviewed. Discussed with the staff. Seen and assessed at bedside. Laney Mcghee M.D. DR: GUTIERREZ JOB#: [id number] CC:
--- NOTE | 2018-08-28 19:33 | NUR ---
HAND-OFF: Report given to Ms Yohana HINOJOSA.
--- NOTE | 2018-08-28 19:33 | NUR ---
NURSE NOTES: Received patient in bed, awake, alert, oriented, no acute distress noted, call light is within reach, bed is locked, alarm is on, will continue to monitor.
[2018-08-28 20:00] VITALS: BP 124/78
[2018-08-28] MEDS: Dyna-Hex 2% Top Sol 2oz TOPIC SCH (20:00)
[2018-08-28] MEDS: Atorvastatin 80mg tab ORAL SCH (21:00)
[2018-08-28] MEDS: TraZODone 100mg tab ORAL SCH (21:00)
--- NOTE | 2018-08-28 22:04 | Cardiology Progress Note ---
Assessment/Plan Assessment/Plan 1. Sinus tachycardia, due to hypoxemia/breathing treatment. 2. Most likely noncardiac chest pain. Electrocardiography shows sinus rhythm with premature ventricular complexes with no acute ST and T-wave abnormalities. AMI is ruled out by negative CE. Beta-natriuretic peptide is also within normal limits. Echo reveals normal LV systolic and diastolic function with LVEF at 55% and normal pulmonary artery pressure. 3. History of chronic obstructive pulmonary disease. 4. Obesity hypoventilation syndrome. 5. History of seizure disorder. 6. Hypertension heart disease. 7. Hyperlipidemia. 8. Dc planning today. Subjective Subjective No cardiac events reported. Objective Last 24 Hour Vital Signs Date Time Temp Pulse Resp B/P (MAP) Pulse Ox O2 Delivery O2 Flow Rate FiO2 08/28/18 20:09 Room Air 21 08/28/18 20:08 101 20 Room Air 21 08/28/18 20:08 97 Room Air 21 08/28/18 15:37 98.8 100 20 136/84 (101) 08/28/18 14:19 106 20 99 Nasal Cannula 2.0 28 08/28/18 14:07 104 18 96 Room Air 21 08/28/18 14:00 96 Room Air 08/28/18 14:00 104 20 Room Air 08/28/18 14:00 Room Air 21 08/28/18 11:54 98.2 97 20 151/103 (119) 08/28/18 08:20 Room Air 08/28/18 08:00 98.2 111 20 140/82 (101) 08/28/18 04:00 98.6 105 20 129/89 (102) 08/28/18 03:13 103 20 99 Room Air 08/28/18 03:00 102 20 95 Room Air 08/28/18 00:00 97.4 81 20 146/88 (107) 81 Intake and Output 08/27/18 08/28/18 19:00 07:00 Intake Total 947 ml 488 ml Balance 947 ml 488 ml Intake Oral 800 ml IV Total 147 ml 88 ml Other 400 ml # Voids 2 3 2D Echo: LVEF 65%, Milkd LVH, Moderate SELAM, RVSP 25 mmHg Laboratory Tests Test 08/28/18 05:42 White Blood Count 7.1 K/UL (4.8-10.8) Red Blood Count 4.33 M/UL (4.70-6.10) L Hemoglobin 14.3 G/DL (14.2-18.0) Hematocrit 42.3 % (42.0-52.0) Mean Corpuscular Volume 98 FL (80-99) Mean Corpuscular Hemoglobin 33.1 PG (27.0-31.0) H Mean Corpuscular Hemoglobin Concent 33.9 G/DL (32.0-36.0) Red Cell Distribution Width 12.4 % (11.6-14.8) Platelet Count 152 K/UL (150-450) Mean Platelet Volume 5.6 FL (6.5-10.1) L Neutrophils (%) (Auto) 70.2 % (45.0-75.0) Lymphocytes (%) (Auto) 21.0 % (20.0-45.0) Monocytes (%) (Auto) 7.0 % (1.0-10.0) Eosinophils (%) (Auto) 1.4 % (0.0-3.0) Basophils (%) (Auto) 0.5 % (0.0-2.0) Sodium Level 141 MMOL/L (136-145) Potassium Level 3.2 MMOL/L (3.5-5.1) L Chloride Level 99 MMOL/L (98-107) Carbon Dioxide Level 35 MMOL/L (21-32) H Anion Gap 7 mmol/L (5-15) Blood Urea Nitrogen 27 mg/dL (7-18) H Creatinine 1.1 MG/DL (0.55-1.30) Estimat Glomerular Filtration Rate > 60 mL/min (>60) Glucose Level 111 MG/DL (74-106) H Calcium Level 8.9 MG/DL (8.5-10.1) Objective HEENT: Atraumatic and normocephalic. Anicteric. Pupils are equal, round, and reactive to light and accommodation. Extraocular muscles intact. NECK: JVP less than 5 cm. No carotid bruit. Carotid upstrokes 2+ bilaterally. CVS: Normal S1, S2. Regular rate and rhythm. Tachycardiac. No murmurs, gallops , or rubs. LUNGS: Diminished breath sounds bilaterally. ABDOMEN: Large pannus. Cannot appreciate hepatosplenomegaly. Positive bowel sounds. EXTREMITIES: There is no evidence of edema, clubbing, or cyanosis. Carlos Martins MD Aug 28, 2018 22:04
[2018-08-29] VITALS: BP 134/95
[2018-08-29] MEDS: Vancomycin 1.5gm/D5W Premix 250 ML IVPB SCH ×3 (00:21→17:34)
[2018-08-29 04:00] VITALS: BP 136/77
[2018-08-29 06:49] LABS: BASOPHILS % (AUTO) 0.9 % (0.0-2.0); EOSINOPHILS % (AUTO) 1.4 % (0.0-3.0); HEMATOCRIT 38.6 % (42.0-52.0); HEMOGLOBIN 13.1 G/DL (14.2-18.0); MEAN CORPUSCULAR VOLUME 98 FL (80-99); NEUTROPHILS % (AUTO) 68.7 % (45.0-75.0); PLATELET COUNT 100 K/UL (150-450); RED BLOOD COUNT 3.94 M/UL (4.70-6.10); RED CELL DISTRIBUTION WIDTH 12.2 % (11.6-14.8); WHITE BLOOD COUNT 6.2 K/UL (4.8-10.8)
[2018-08-29 07:02] LABS: ANION GAP 4 mmol/L (5-15); BLOOD UREA NITROGEN 19 mg/dL (7-18); CALCIUM 6.9 MG/DL (8.5-10.1); CARBON DIOXIDE 32 MMOL/L (21-32); CHLORIDE 107 MMOL/L (98-107); CREATININE 0.9 MG/DL (0.55-1.30); SODIUM 142 MMOL/L (136-145)
--- NOTE | 2018-08-29 07:30 | NUR ---
HAND-OFF: Report given to Heike HINOJOSA.
[2018-08-29 07:38] LABS: POTASSIUM 2.5 MMOL/L (3.5-5.1)
--- NOTE | 2018-08-29 07:41 | NUR ---
NURSE NOTES: Patient received in stable condition, alert and oriented. Breathing unlabored on room air. Patient is ambulatory. PICC line on left upper arm double lumen, patent and intact. No isolation precautions. Call light within reach, will continue to monitor.
[2018-08-29 08:00] VITALS: BP 127/76
[2018-08-29] MEDS: MS Contin 15mg tab ORAL SCH ×2 (08:11→20:44)
[2018-08-29] MEDS: Theophylline ER 100mg ORAL SCH (08:11)
[2018-08-29] MEDS: Heparin 5000 units/ml inj SUBQ SCH ×2 (08:19→19:36)
--- NOTE | 2018-08-29 08:59 | General Progress Note ---
Assessment/Plan Problem List: (1) Peripheral edema ICD Codes: R60.9 - Edema, unspecified SNOMED: 366640432 (2) COPD (chronic obstructive pulmonary disease) ICD Codes: J44.9 - Chronic obstructive pulmonary disease, unspecified SNOMED: 31496500 Qualifiers: Qualified Codes: J44.9 - Chronic obstructive pulmonary disease, unspecified (3) Leg pain ICD Codes: M79.606 - Pain in leg, unspecified SNOMED: 36396889 (4) Morbid obesity ICD Codes: E66.01 - Morbid (severe) obesity due to excess calories SNOMED: 525608733 (5) Seizures ICD Codes: R56.9 - Unspecified convulsions SNOMED: 98979541 (6) Right heart failure ICD Codes: I50.810 - Right heart failure, unspecified SNOMED: 860797987 (7) ACS (acute coronary syndrome) ICD Codes: I24.9 - Acute ischemic heart disease, unspecified SNOMED: 070784056 (8) Abdominal pannus ICD Codes: E65 - Localized adiposity SNOMED: 6690501794326 (9) Abdominal wall cellulitis ICD Codes: L03.311 - Cellulitis of abdominal wall SNOMED: 57887288 Status: unchanged Assessment/Plan o2 pulm tx abx prn seizure pain control pt diet cbc bmp am dc plan Subjective Constitutional: Reports: weakness Allergies: Coded Allergies: ASPIRIN (Verified Allergy, Unknown, 07/14/18) KETOROLAC (Verified Allergy, Unknown, 07/14/18) PENICILLINS (Verified Allergy, Unknown, 07/14/18) All Systems: reviewed and negative except above Subjective sitting sob Objective Last 24 Hour Vital Signs Date Time Temp Pulse Resp B/P (MAP) Pulse Ox O2 Delivery O2 Flow Rate FiO2 08/29/18 07:07 97 Room Air 21 08/29/18 07:07 90 18 Room Air 08/29/18 07:07 Room Air 21 08/29/18 04:00 97.9 106 18 136/77 (96) 106 08/29/18 00:00 97.9 105 19 134/95 (108) 99 08/28/18 22:55 104 18 100 Room Air 21 08/28/18 22:47 99 18 96 Room Air 21 08/28/18 21:00 Room Air 08/28/18 20:09 Room Air 21 08/28/18 20:08 101 20 Room Air 21 08/28/18 20:08 97 Room Air 21 08/28/18 20:00 98.6 96 19 124/78 (93) 96 08/28/18 15:37 98.8 100 20 136/84 (101) 08/28/18 14:19 106 20 99 Nasal Cannula 2.0 28 08/28/18 14:07 104 18 96 Room Air 21 08/28/18 14:00 96 Room Air 21 08/28/18 14:00 104 20 Room Air 21 08/28/18 14:00 Room Air 21 08/28/18 11:54 98.2 97 20 151/103 (119) Intake and Output 08/28/18 08/29/18 18:59 06:59 Intake Total 2176 ml 500 ml Balance 2176 ml 500 ml Intake Oral 1610 ml IV Total 566 ml Other 500 ml # Voids 6 3 Laboratory Tests 08/29/18 05:00: White Blood Count 6.2, Red Blood Count 3.94L, Hemoglobin 13.1L, Hematocrit 38.6L , Mean Corpuscular Volume 98, Mean Corpuscular Hemoglobin 33.3H, Mean Corpuscular Hemoglobin Concent 34.0, Red Cell Distribution Width 12.2, Platelet Count 100L, Mean Platelet Volume 6.0L, Neutrophils (%) (Auto) 68.7, Lymphocytes (%) (Auto) 20.0, Monocytes (%) (Auto) 9.0, Eosinophils (%) (Auto) 1.4, Basophils (%) (Auto) 0.9, Sodium Level 142, Potassium Level 2.5*L, Chloride Level 107, Carbon Dioxide Level 32, Anion Gap 4L, Blood Urea Nitrogen 19H, Creatinine 0.9, Estimat Glomerular Filtration Rate > 60, Glucose Level 105, Calcium Level 6.9#L Height (Feet): 5 Height (Inches): 11.00 Weight (Pounds): 489 General Appearance: lethargic EENT: normal ENT inspection Neck: normal alignment Cardiovascular: normal peripheral pulses, normal rate, regular rhythm Respiratory/Chest: chest wall non-tender, decreased breath sounds Abdomen: normal bowel sounds, soft, distended Edema: 2+ Arm (L), 2+ Arm (R), 2+ Leg (L), 2+ Leg (R), 2+ Pedal (L), 2+ Pedal ( R), 2+ Generalized Edema: moderate edema Neurologic: responsive, motor weakness Skin: normal pigmentation, warm/dry Ernesto Nicole DO Aug 29, 2018 08:59
[2018-08-29] MEDS: Albuterol/Ipratropium 3ml neb HHN PRN ×2 (09:20→19:43)
--- NOTE | 2018-08-29 10:23 | Consultation ---
History of Present Illness General Chief Complaint: Chest Pain Reason for Consultation: Abscess Present Illness HPI 52 year old male well known to me from prior admission currently admitted for medical care and management was noted to have worsening edema/cellulitis of bilateral lower extremities and pannus. surgery called to evaluate. patient seen, chart reviewed, patient examined. states discomfort in lower extremities with difficulty walking now. pannus much larger and red/painful now. Allergies: Coded Allergies: ASPIRIN (Verified Allergy, Unknown, 07/14/18) KETOROLAC (Verified Allergy, Unknown, 07/14/18) PENICILLINS (Verified Allergy, Unknown, 07/14/18) Medication History Scheduled Atorvastatin Calcium* (Lipitor*), 80 MG ORAL BEDTIME, (Reported) Clopidogrel* (Clopidogrel*), 75 MG ORAL DAILY, (Reported) Diltiazem Hcl (Diltiazem Hcl), 120 MG PO DAILY, (Reported) Docusate Sodium* (Docusate Sodium*), 100 MG ORAL DAILY, (Reported) Furosemide* (Lasix*), 40 MG ORAL DAILY, (Reported) Gabapentin* (Gabapentin*), 600 MG ORAL THREE TIMES A DAY, (Reported) Ipratropium/Albuterol Sulfate (DuoNeb 0.5-3(2.5)mg/3ml), 3 ML HHN Q6HR, ( Reported) Isosorbide Dinitrate (Isosorbide Dinitrate), 30 MG PO DAILY, (Reported) Isosorbide Mononitrate (Isosorbide Mononitrate Er), 30 MG PO DAILY, (Reported) Levetiracetam (Keppra Xr), 500 MG ORAL BID, (Reported) Morphine Sulfate (Morphine Sulfate Er), 15 MG PO DAILY, (Reported) Theophylline Anhydrous (George-24), 300 MG PO DAILY, (Reported) Tiotropium [place] (Spiriva), 0 INH DAILY, (Reported) Scheduled PRN Acetaminophen* (Acetaminophen 325MG Tablet*), 650 MG ORAL Q4H PRN for Mild Pain/ Temp > 100.5, (Reported) Bisacodyl (Dulcolax), 10 MG RC DAILY PRN for IF MOM INEFFECTIVE, (Reported) Codeine/Promethazine Hcl* (Promethazine-Codeine Syrup*), 5 ML ORAL Q4H PRN for For Cough, (Reported) Hydrocodone Bit/Acetaminophen 10-325* ([place] 10-325*), 1 TAB ORAL Q4H PRN for For Pain, (Reported) Magnesium Hydroxide* (Milk Of Magnesia*), 30 ML ORAL BEDTIME PRN for IF DOCUSATE INEFFECTIVE, (Reported) Na Phos,M-B/Na Phos,Di-Ba* (Fleet Enema*), 133 ML RECTAL QOD PRN for IF DULCOLAX INEFFECTIVE, (Reported) Nitroglycerin (Nitrostat), 0.4 MG SL Q5M X3 DOSES PRN for CHEST PAIN, (Reported) Polyethylene Glycol 3350* (Miralax*), 17 GM ORAL DAILY PRN for Constipation, ( Reported) Discontinued Medications Albuterol Sulfate* (Albuterol Sulfate Hhn*), 3 ML INH Q4H PRN for Shortness of Breath, (Reported) Discontinued Reason: Pt stopped taking med Amlodipine Besylate (Norvasc), 5 MG ORAL DAILY, (Reported) Discontinued Reason: Pt stopped taking med Atorvastatin (Lipitor), 40 MG ORAL BEDTIME, (Reported) Discontinued Reason: Pt stopped taking med Codeine/Promethazine Hcl* (Promethazine-Codeine Syrup*), 5 ML ORAL Q4H PRN for For Cough, (Reported) Discontinued Reason: Pt stopped taking med Duloxetine Hcl* (Cymbalta*), 30 MG ORAL DAILY, (Reported) Discontinued Reason: Pt stopped taking med Furosemide* (Lasix*), 40 MG ORAL EVERY 8 HOURS, (Reported) Discontinued Reason: Pt stopped taking med Gabapentin* (Gabapentin*), 600 MG ORAL THREE TIMES A DAY, (Reported) Discontinued Reason: Pt stopped taking med Levetiracetam (Levetiracetam), 500 MG ORAL TWICE A DAY, (Reported) Discontinued Reason: Pt stopped taking med Methylprednisolone (Methylprednisolone*), 4 MG ORAL DIRECTED, (Reported) Discontinued Reason: Pt stopped taking med Morphine HCl (Morphine Sulfate ER), 15 MG ORAL Q6H PRN for For Pain, (Reported) Discontinued Reason: Pt stopped taking med Nitroglycerin (Nitroglycerin), 0.3 MG SCONJUNC, (Reported) Discontinued Reason: Pt stopped taking med Ondansetron* (Zofran*), 4 MG ORAL Q6H PRN for Nausea & Vomiting, (Reported) Discontinued Reason: Pt stopped taking med Ondansetron* (Zofran*), 4 MG ORAL Q6H PRN for Nausea & Vomiting, (Reported) Discontinued Reason: Pt stopped taking med Polyethylene Glycol 3350* (Polyethylene Glycol 3350*), 17 GM ORAL BEDTIME, ( Reported) Discontinued Reason: Pt stopped taking med Prednisone* (Prednisone*), 20 MG ORAL DAILY, (Reported) Discontinued Reason: Pt stopped taking med Sennosides (Senna), 17.2 MG PO BEDTIME, (Reported) Discontinued Reason: Pt stopped taking med Temazepam* (Restoril*), 15 MG ORAL BEDTIME PRN for Insomnia, (Reported) Discontinued Reason: Pt stopped taking med Theophylline (Theodur*), 100 MG ORAL TWICE A DAY, (Reported) Discontinued Reason: Pt stopped taking med Theophylline (Theodur*), 100 MG ORAL Q8HR, (Reported) Discontinued Reason: Pt stopped taking med Theophylline Anhydrous (Theophylline), 100 MG PO, (Reported) Discontinued Reason: MD discontinued med Patient History History Provided By: Patient, Medical Record, PMD Healthcare decision maker N Resuscitation status Full Code Advanced Directive on File No Past Medical/Surgical History Past Medical/Surgical History: (1) Uncontrolled seizures (2) Lumbar spondylosis (3) Knee osteomyelits, right (4) COPD (chronic obstructive pulmonary disease) (5) Morbid obesity (6) Seizures (7) ADALBERTO (obstructive sleep apnea) (8) Right heart failure (9) ACS (acute coronary syndrome) (10) Abdominal pannus (11) Leg pain (12) Peripheral edema (13) Abdominal wall cellulitis Review of Systems All Other Systems: negative except mentioned in HPI Physical Exam General Appearance: mild distress Lines, tubes and drains: peripheral HEENT: mucous membranes moist Neck: normal inspection Respiratory/Chest: no respiratory distress Cardiovascular/Chest: normal rate Abdomen: soft, tender, other - large fluid edema / cellulitis of pannus, red, tender, hard, warm. no abscess no drainage Extremities: severe edema Skin Exam: other Neurologic: alert Last 24 Hour Vital Signs Date Time Temp Pulse Resp B/P (MAP) Pulse Ox O2 Delivery O2 Flow Rate FiO2 08/29/18 09:40 80 16 99 Nasal Cannula 2.0 28 08/29/18 09:20 88 18 94 Nasal Cannula 2.0 28 08/29/18 07:07 97 Room Air 21 08/29/18 07:07 90 18 Room Air 21 08/29/18 07:07 Room Air 21 08/29/18 04:00 97.9 106 18 136/77 (96) 106 08/29/18 00:00 97.9 105 19 134/95 (108) 99 08/28/18 22:55 104 18 100 Room Air 21 08/28/18 22:47 99 18 96 Room Air 21 08/28/18 21:00 Room Air 08/28/18 20:09 Room Air 21 08/28/18 20:08 101 20 Room Air 21 08/28/18 20:08 97 Room Air 21 08/28/18 20:00 98.6 96 19 124/78 (93) 96 08/28/18 15:37 98.8 100 20 136/84 (101) 08/28/18 14:19 106 20 99 Nasal Cannula 2.0 28 08/28/18 14:07 104 18 96 Room Air 21 08/28/18 14:00 96 Room Air 08/28/18 14:00 104 20 Room Air 21 08/28/18 14:00 Room Air 21 08/28/18 11:54 98.2 97 20 151/103 (119) Intake and Output 08/28/18 08/29/18 18:59 06:59 Intake Total 2176 ml 500 ml Balance 2176 ml 500 ml Intake Oral 1610 ml IV Total 566 ml Other 500 ml # Voids 6 3 Laboratory Tests Test 08/29/18 05:00 White Blood Count 6.2 K/UL (4.8-10.8) Red Blood Count 3.94 M/UL (4.70-6.10) L Hemoglobin 13.1 G/DL (14.2-18.0) L Hematocrit 38.6 % (42.0-52.0) L Mean Corpuscular Volume 98 FL (80-99) Mean Corpuscular Hemoglobin 33.3 PG (27.0-31.0) H Mean Corpuscular Hemoglobin Concent 34.0 G/DL (32.0-36.0) Red Cell Distribution Width 12.2 % (11.6-14.8) Platelet Count 100 K/UL (150-450) L Mean Platelet Volume 6.0 FL (6.5-10.1) L Neutrophils (%) (Auto) 68.7 % (45.0-75.0) Lymphocytes (%) (Auto) 20.0 % (20.0-45.0) Monocytes (%) (Auto) 9.0 % (1.0-10.0) Eosinophils (%) (Auto) 1.4 % (0.0-3.0) Basophils (%) (Auto) 0.9 % (0.0-2.0) Sodium Level 142 MMOL/L (136-145) Potassium Level 2.5 MMOL/L (3.5-5.1) *L Chloride Level 107 MMOL/L (98-107) Carbon Dioxide Level 32 MMOL/L (21-32) Anion Gap 4 mmol/L (5-15) L Blood Urea Nitrogen 19 mg/dL (7-18) H Creatinine 0.9 MG/DL (0.55-1.30) Estimat Glomerular Filtration Rate > 60 mL/min (>60) Glucose Level 105 MG/DL (74-106) Calcium Level 6.9 MG/DL (8.5-10.1) #L Height (Feet): 5 Height (Inches): 11.00 Weight (Pounds): 489 Medications Current Medications Medications (Trade) Dose Ordered Sig/Luis Route PRN Reason Start Time Stop Time Status Last Admin Dose Admin Acetaminophen (Tylenol) 650 mg Q4H PRN ORAL FEVER 08/27/18 15:30 09/21/18 15:29 Acetaminophen/ Hydrocodone Bitart ([place] 10/325) 1 tab Q4H PRN ORAL pain 3-6 08/27/18 16:24 09/03/18 16:23 Albuterol/ Ipratropium (Albuterol/ Ipratropium) 3 ml Q4H PRN HHN Shortness of Breath 08/27/18 18:45 09/01/18 18:44 08/29/18 09:20 Atorvastatin Calcium (Lipitor) 80 mg BEDTIME ORAL 08/27/18 21:00 09/21/18 20:59 08/28/18 21:00 Chlorhexidine Gluconate (Ruby-Hex 2%) 1 applic DAILY@2000 TOPIC 08/27/18 20:00 09/24/18 19:59 08/27/18 20:06 Clopidogrel Bisulfate (Plavix) 75 mg DAILY ORAL 08/28/18 09:00 09/22/18 08:59 08/29/18 08:11 Enalaprilat (Vasotec) 2.5 mg Q6H PRN IV sbp more than 160 08/27/18 15:30 09/21/18 15:29 Furosemide 100 mg/ Dextrose 110 ml @ 11 mls/hr Q10H IV 08/27/18 16:00 09/24/18 15:59 08/29/18 08:13 Gabapentin (Neurontin) 600 mg THREE TIMES A DAY ORAL 08/27/18 18:00 09/22/18 08:59 08/29/18 08:12 Heparin Sodium (Porcine) (Heparin 5000 units/ml) 5,000 units EVERY 12 HOURS SUBQ 08/27/18 21:00 09/21/18 20:59 08/27/18 20:08 Hydromorphone HCl (Dilaudid) 3 mg Q3H PRN IVP Severe Pain (Pain Scale 7-10) 08/27/18 16:02 09/02/18 16:01 08/29/18 08:18 Morphine Sulfate (MS Contin) 15 mg Q12HR ORAL 08/27/18 21:00 08/30/18 08:59 08/29/18 08:11 Nitroglycerin (Ntg) 0.4 mg Q5M PRN SL Prn Chest Pain 08/27/18 15:30 09/21/18 15:29 Ondansetron HCl (Zofran) 4 mg Q6H PRN IVP Nausea & Vomiting 08/27/18 15:30 09/21/18 15:29 Polyethylene Glycol (Miralax) 17 gm DAILYPRN PRN ORAL Constipation 08/27/18 15:30 09/21/18 15:29 Temazepam (Restoril) 15 mg HSPRN PRN ORAL Insomnia 08/27/18 21:00 08/29/18 20:59 Theophylline (George-Dur) 100 mg DAILY ORAL 08/28/18 09:00 09/22/18 08:59 08/29/18 08:11 Trazodone HCl (Desyrel) 100 mg BEDTIME ORAL 08/27/18 21:00 09/23/18 20:59 08/28/18 21:00 Vancomycin HCl (Vanco rx to dose) 1 ea DAILY PRN MISC Per rx protocol 08/27/18 16:00 09/26/18 15:59 Vancomycin HCl/ Dextrose 250 ml @ 125 mls/hr Q8H IVPB 08/27/18 16:00 09/01/18 00:00 08/29/18 00:21 Assessment/Plan Problem List: (1) Abdominal wall cellulitis Assessment & Plan: very fluid overloaded developing cellulitis of pannus and lower extremities. no abscess. pannus much larger than prior with erythema and edema and induration lower extremities with severe edema and blistering and cellulitis Lasix IV Abx keep legs elevated unfortunately no surgical intervention at this time. will need to follow closely for abscess development thank you ICD Codes: L03.311 - Cellulitis of abdominal wall SNOMED: 52875938 (2) Abdominal pannus ICD Codes: E65 - Localized adiposity SNOMED: 5496981169536 Gt Fernandez Aug 29, 2018 10:23
[2018-08-29 12:00] VITALS: BP 159/99
[2018-08-29] MEDS ORDERED: Cathflo Alteplase 2mg Inj INJ SCH (12:30)
[2018-08-29] MEDS ORDERED: Tubing IV Secondary IV ONE (14:03)
[2018-08-29] MEDS ORDERED: NS 275ml ONE (14:03)
--- NOTE | 2018-08-29 14:05 | Pulmonology Progress Note ---
Assessment/Plan Assessment/Plan ASSESSMENT Noncardiac chest pain , possibly due to anxiety COPD Right heart failure Obstructive sleep apnea Obesity hypoventilation syndrome Morbid obesity Abdominal wall cellulitis Abdominal pannus Posterior neck mass, likely due to inflamed lipoma Seizure disorder Hyperlipidemia Hypertension Mild pulmonary HTN MDD Anxiety, possible generalized anxiety disorder Hypokalemia PLAN OF CARE [facility] floor s/p diuresis with lasix drip abx as per ID recs BiPAP at HS and prn O2 titrate to keep sat above 90%, pulm toilet prn continue Theophylline serial troponin x 3 negative, ECG no acute ischemic changes, thus r/out for acute MA cardio follows ECHO with pEF 55-60%, no evidence of WMA, RVSP of 40 c/w mild pulmonary HTN per cardio likely noncardiac chest pain, possibly due to anxiety continue anti/PLT therapy with Plavix and statin , lipid panel stable Nitro prn DVT prophylaxis close monitoring of BP pain management fup with surgical recs monitor renal parameters, electrolytes, avoid nephrotoxic, correct electrolytes as needed follow-up with further nephro recs seizure precautions, continue Keppra psych meds as per psych recs supportive care bowel regimen case discussed and evaluated by supervising physician Subjective Allergies: Coded Allergies: ASPIRIN (Verified Allergy, Unknown, 07/14/18) KETOROLAC (Verified Allergy, Unknown, 07/14/18) PENICILLINS (Verified Allergy, Unknown, 07/14/18) Subjective afebrile, on o2 vias NC pulse ox stable Objective Last 24 Hour Vital Signs Date Time Temp Pulse Resp B/P (MAP) Pulse Ox O2 Delivery O2 Flow Rate FiO2 08/29/18 12:00 97.9 103 18 159/99 (119) 95 103 08/29/18 09:40 80 16 99 Nasal Cannula 2.0 28 08/29/18 09:20 88 18 94 Nasal Cannula 2.0 28 08/29/18 09:00 Room Air 08/29/18 08:00 97.7 103 18 127/76 (93) 95 103 08/29/18 07:07 97 Room Air 21 08/29/18 07:07 90 18 Room Air 21 08/29/18 07:07 Room Air 21 08/29/18 04:00 97.9 106 18 136/77 (96) 106 08/29/18 00:00 97.9 105 19 134/95 (108) 99 08/28/18 22:55 104 18 100 Room Air 21 08/28/18 22:47 99 18 96 Room Air 21 08/28/18 21:00 Room Air 08/28/18 20:09 Room Air 21 08/28/18 20:08 101 20 Room Air 21 08/28/18 20:08 97 Room Air 21 08/28/18 20:00 98.6 96 19 124/78 (93) 96 08/28/18 15:37 98.8 100 20 136/84 (101) 08/28/18 14:19 106 20 99 Nasal Cannula 2.0 28 08/28/18 14:07 104 18 96 Room Air 21 Intake and Output 08/28/18 08/29/18 19:00 07:00 Intake Total 2176 ml 500 ml Balance 2176 ml 500 ml Intake Oral 1610 ml IV Total 566 ml Other 500 ml # Voids 6 3 General Appearance: no acute distress, other - morbidly obese male A/A/O x 4 HEENT: normocephalic, atraumatic, anicteric, PERRL Respiratory/Chest: decreased breath sounds Cardiovascular: no JVD, tachycardia - distant heart sounds Abdomen: normal bowel sounds, other - abdiomen soft with pannus , erythema, pannus changes Skin: other Neurologic/Psychiatric: no motor/sensory deficits, alert, oriented x 3, responsive Musculoskeletal: normal muscle bulk Laboratory Tests 08/29/18 05:00: White Blood Count 6.2, Red Blood Count 3.94L, Hemoglobin 13.1L, Hematocrit 38.6L , Mean Corpuscular Volume 98, Mean Corpuscular Hemoglobin 33.3H, Mean Corpuscular Hemoglobin Concent 34.0, Red Cell Distribution Width 12.2, Platelet Count 100L, Mean Platelet Volume 6.0L, Neutrophils (%) (Auto) 68.7, Lymphocytes (%) (Auto) 20.0, Monocytes (%) (Auto) 9.0, Eosinophils (%) (Auto) 1.4, Basophils (%) (Auto) 0.9, Sodium Level 142, Potassium Level 2.5*L, Chloride Level 107, Carbon Dioxide Level 32, Anion Gap 4L, Blood Urea Nitrogen 19H, Creatinine 0.9, Estimat Glomerular Filtration Rate > 60, Glucose Level 105, Calcium Level 6.9#L Current Medications Medications (Trade) Dose Ordered Sig/Luis Route PRN Reason Start Time Stop Time Status Last Admin Dose Admin Acetaminophen (Tylenol) 650 mg Q4H PRN ORAL FEVER 08/27/18 15:30 09/21/18 15:29 Acetaminophen/ Hydrocodone Bitart ([place] 10/325) 1 tab Q4H PRN ORAL pain 3-6 08/27/18 16:24 09/03/18 16:23 Albuterol/ Ipratropium (Albuterol/ Ipratropium) 3 ml Q4H PRN HHN Shortness of Breath 08/27/18 18:45 09/01/18 18:44 08/29/18 09:20 Atorvastatin Calcium (Lipitor) 80 mg BEDTIME ORAL 08/27/18 21:00 09/21/18 20:59 08/28/18 21:00 Chlorhexidine Gluconate (Ruby-Hex 2%) 1 applic DAILY@2000 TOPIC 08/27/18 20:00 09/24/18 19:59 08/27/18 20:06 Clopidogrel Bisulfate (Plavix) 75 mg DAILY ORAL 08/28/18 09:00 09/22/18 08:59 08/29/18 08:11 Enalaprilat (Vasotec) 2.5 mg Q6H PRN IV sbp more than 160 08/27/18 15:30 09/21/18 15:29 Furosemide 100 mg/ Dextrose 110 ml @ 11 mls/hr Q10H IV 08/27/18 16:00 09/24/18 15:59 08/29/18 08:13 Gabapentin (Neurontin) 600 mg THREE TIMES A DAY ORAL 08/27/18 18:00 09/22/18 08:59 08/29/18 12:09 Heparin Sodium (Porcine) (Heparin 5000 units/ml) 5,000 units EVERY 12 HOURS SUBQ 08/27/18 21:00 09/21/18 20:59 08/27/18 20:08 Hydromorphone HCl (Dilaudid) 3 mg Q3H PRN IVP Severe Pain (Pain Scale 7-10) 08/27/18 16:02 09/02/18 16:01 08/29/18 11:36 Morphine Sulfate (MS Contin) 15 mg Q12HR ORAL 08/27/18 21:00 08/30/18 08:59 08/29/18 08:11 Nitroglycerin (Ntg) 0.4 mg Q5M PRN SL Prn Chest Pain 08/27/18 15:30 09/21/18 15:29 Ondansetron HCl (Zofran) 4 mg Q6H PRN IVP Nausea & Vomiting 08/27/18 15:30 09/21/18 15:29 Polyethylene Glycol (Miralax) 17 gm DAILYPRN PRN ORAL Constipation 08/27/18 15:30 09/21/18 15:29 Potassium Chloride (K-Dur) 40 meq Q4H ORAL 08/29/18 13:00 08/30/18 01:01 08/29/18 13:58 Temazepam (Restoril) 15 mg HSPRN PRN ORAL Insomnia 08/27/18 21:00 08/29/18 20:59 Theophylline (George-Dur) 100 mg DAILY ORAL 08/28/18 09:00 09/22/18 08:59 08/29/18 08:11 Trazodone HCl (Desyrel) 100 mg BEDTIME ORAL 08/27/18 21:00 09/23/18 20:59 08/28/18 21:00 Vancomycin HCl (Vanco rx to dose) 1 ea DAILY PRN MISC Per rx protocol 08/27/18 16:00 09/26/18 15:59 Vancomycin HCl/ Dextrose 250 ml @ 125 mls/hr Q8H IVPB 08/27/18 16:00 09/01/18 00:00 08/29/18 11:18 Kiera Vivar NP Aug 29, 2018 14:05
--- NOTE | 2018-08-29 14:54 | Nephrology Progress Note ---
Assessment/Plan Assessment 1. Persistent hypokalemia, most likely renal loss. 2. Prerenal azotemia. 3. Fluid overload. 4. Cellulitis of abdominal wall and pannus. 5. Cellulitis of the lower extremity. 6.hypokalemia Plan replace k check mg daily wt check in and out put avoid NSAID Fluid restriction Subjective Constitutional: Reports: no symptoms HEENT: Reports: no symptoms Genitourinary: Reports: no symptoms Neurologic/Psychiatric: Reports: no symptoms Subjective alert and awake has good urine out put but unable to measure Objective Objective Last 24 Hour Vital Signs Date Time Temp Pulse Resp B/P (MAP) Pulse Ox O2 Delivery O2 Flow Rate FiO2 08/29/18 12:00 97.9 103 18 159/99 (119) 95 103 08/29/18 09:40 80 16 99 Nasal Cannula 2.0 28 08/29/18 09:20 88 18 94 Nasal Cannula 2.0 28 08/29/18 09:00 Room Air 08/29/18 08:00 97.7 103 18 127/76 (93) 95 103 08/29/18 07:07 97 Room Air 21 08/29/18 07:07 90 18 Room Air 21 08/29/18 07:07 Room Air 08/29/18 04:00 97.9 106 18 136/77 (96) 106 08/29/18 00:00 97.9 105 19 134/95 (108) 99 08/28/18 22:55 104 18 100 Room Air 21 08/28/18 22:47 99 18 96 Room Air 21 08/28/18 21:00 Room Air 08/28/18 20:09 Room Air 08/28/18 20:08 101 20 Room Air 21 08/28/18 20:08 97 Room Air 21 08/28/18 20:00 98.6 96 19 124/78 (93) 96 08/28/18 15:37 98.8 100 20 136/84 (101) Intake and Output 08/28/18 08/29/18 19:00 07:00 Intake Total 2176 ml 500 ml Balance 2176 ml 500 ml Intake Oral 1610 ml IV Total 566 ml Other 500 ml # Voids 6 3 Laboratory Tests 08/29/18 05:00: White Blood Count 6.2, Red Blood Count 3.94L, Hemoglobin 13.1L, Hematocrit 38.6L , Mean Corpuscular Volume 98, Mean Corpuscular Hemoglobin 33.3H, Mean Corpuscular Hemoglobin Concent 34.0, Red Cell Distribution Width 12.2, Platelet Count 100L, Mean Platelet Volume 6.0L, Neutrophils (%) (Auto) 68.7, Lymphocytes (%) (Auto) 20.0, Monocytes (%) (Auto) 9.0, Eosinophils (%) (Auto) 1.4, Basophils (%) (Auto) 0.9, Sodium Level 142, Potassium Level 2.5*L, Chloride Level 107, Carbon Dioxide Level 32, Anion Gap 4L, Blood Urea Nitrogen 19H, Creatinine 0.9, Estimat Glomerular Filtration Rate > 60, Glucose Level 105, Calcium Level 6.9#L Height (Feet): 5 Height (Inches): 11.00 Weight (Pounds): 489 Objective HEAD AND NECK: No JVP. No LAD. No thyromegaly. Extraocular movement intact. Pupils are reactive to light and accommodation. LUNGS: Decreased breathing sound on both sides. CARDIAC: Regular rate and rhythm. S1-S2. No murmur. No rub. ABDOMEN: Obese and has enlarged pannus, which is red, is swollen and he also has some secretion from his belly button. EXTREMITIES: Both lower extremities have edema, increasing redness, chronic changes, left more than right. Misty Jonas MD Aug 29, 2018 14:54
[2018-08-29 16:00] VITALS: BP 140/74
--- NOTE | 2018-08-29 16:30 | NUR ---
NURSE NOTES: PATIENT VERBALIZED WHILE AMBULATING TO GET PIZZA, HE SLIPPED ON WATER THAT WAS ON FLOOR AND HIT KNEE ON EMPTY BED NEXT TO HIS. NO REDNESS NOTED. PATIENT C/O PAIN. BILATERAL LE VERY SWOLLEN FROM FLUID OVERLOAD AND MEDICAL HX. NOTIFIED DR. NAVARRO WHO ORDERED STAT R KNEE XRAY. NO ADDITIONAL PAIN MEDS ORDERED. WILL CONTINUE TO MONITOR.
--- NOTE | 2018-08-29 17:12 | Diagnostic Imaging Report ---
History: TRAUMA Exam: XR RIGHT KNEE 2 views Comparison: 08/26/2017 FINDINGS: The lateral view is limited due to overlapping soft tissue and cannot evaluate for joint effusion. No fracture or dislocation identified. Screws at the proximal tibia again noted. Tricompartmental osteoarthrosis with joint space narrowing lateral compartment and likely patellofemoral compartment. IMPRESSION: The lateral view is limited due to overlapping soft tissue and cannot evaluate for joint effusion. No fracture or dislocation identified. Screws at the proximal tibia again noted. Tricompartmental osteoarthrosis with joint space narrowing lateral compartment and likely patellofemoral compartment.
--- NOTE | 2018-08-29 19:17 | NUR ---
HAND-OFF: Report given to Sarita HINOJOSA.
--- NOTE | 2018-08-29 19:31 | NUR ---
NURSE NOTES: Received patient in bed. No SOB, no acute distress. On fluid restriction of 1L/day. Reminded patient for 500cc restriction for cook night. Patient verbalized understanding in upset mood. PICC line on LARRY intact running ABX. Bed in lowest position, locked, alarms on. Call light in reach.
[2018-08-29 20:00] VITALS: BP 161/97
[2018-08-29] MEDS: TraZODone 100mg tab ORAL SCH (20:44)
[2018-08-29] MEDS: Dyna-Hex 2% Top Sol 2oz TOPIC SCH (20:44)
[2018-08-29] MEDS: Atorvastatin 80mg tab ORAL SCH (20:45)
[2018-08-29] MEDS: levETIRAcetam 500mg/5ml Liquid ORAL SCH ×2 (20:45→20:54)
--- NOTE | 2018-08-29 23:30 | Progress Note ---
DATE: 08/29/2018 SUBJECTIVE: A 52-year-old male patient with COPD, very confused, and disorganized with mood labile. He has got no logical plan for his own self-care. He has high-levels of severe anxiety and depression, but most of anxiety. MENTAL STATUS EXAMINATION: A 52-year-old male. Appearance is disheveled. Attitude, irritable and agitated. Affect, guarded and restricted. Intellect poor. Mood, depressed and anxious. Motor activity, psychomotor agitation. Attention span is poor orientation x2. Speech is low volume and slurred. Thought process, disorganized and logical. Thought content, some paranoia. Insight and judgment are poor. DIAGNOSIS: Generalized anxiety disorder, rule out major depressive disorder. PLAN: Treat him with Neurontin 600 mg thrice times a day. Provided him with 20 minutes of cognitive behavioral therapy to help him identify automatic negative thoughts and help him convert those negative thoughts to more positive thoughts to reduce depression, anxiety, and suicidality. Chart reviewed. Discussed with the staff. Seen and assessed at bedside. Provided him with 20 minutes of supportive psychotherapy. Laney Mcghee M.D. DR: MP JOB#: [id number] CC:
[2018-08-30] VITALS: BP 144/92
--- NOTE | 2018-08-30 00:23 | Cardiology Progress Note ---
Assessment/Plan Assessment/Plan LATE NOTE ENTRY DOS: Aug 29, 2018 Time: 22:19 1. Sinus tachycardia, due to hypoxemia/breathing treatment. 2. Most likely noncardiac chest pain. Electrocardiography shows sinus rhythm with premature ventricular complexes with no acute ST and T-wave abnormalities. AMI is ruled out by negative CE. Beta-natriuretic peptide is also within normal limits. Echo reveals normal LV systolic and diastolic function with LVEF at 55% and normal pulmonary artery pressure. 3. History of chronic obstructive pulmonary disease. 4. Obesity hypoventilation syndrome. 5. History of seizure disorder. 6. Hypertension heart disease. 7. Hyperlipidemia. 8. Hypokalemic, K supplement given, am labs. Subjective Subjective No cardiac events reported. Denies chest pain or SOB. Objective Last 24 Hour Vital Signs Date Time Temp Pulse Resp B/P (MAP) Pulse Ox O2 Delivery O2 Flow Rate FiO2 08/29/18 21:00 Room Air 08/29/18 20:00 98.0 105 20 161/97 (118) 95 105 08/29/18 19:53 99 20 99 Room Air 21 08/29/18 19:46 95 Nasal Cannula 32 08/29/18 19:46 85 18 Nasal Cannula 3.0 32 08/29/18 19:46 Nasal Cannula 3.0 32 08/29/18 19:40 85 18 95 Nasal Cannula 3.0 32 08/29/18 16:00 97.7 100 18 140/74 (96) 98 100 08/29/18 12:00 97.9 103 18 159/99 (119) 95 103 08/29/18 09:40 80 16 99 Nasal Cannula 2.0 28 08/29/18 09:20 88 18 94 Nasal Cannula 2.0 28 08/29/18 09:00 Room Air 08/29/18 08:00 97.7 103 18 127/76 (93) 95 103 08/29/18 07:07 97 Room Air 21 08/29/18 07:07 90 18 Room Air 21 08/29/18 07:07 Room Air 21 08/29/18 04:00 97.9 106 18 136/77 (96) 106 Intake and Output 08/29/18 08/30/18 19:00 07:00 Intake Total 800 ml Balance 800 ml Intake Oral 800 ml # Voids 6 2D Echo: LVEF 65%, Mild LVH, Moderate SELAM, RVSP 25 mmHg Laboratory Tests Test 08/29/18 05:00 White Blood Count 6.2 K/UL (4.8-10.8) Red Blood Count 3.94 M/UL (4.70-6.10) L Hemoglobin 13.1 G/DL (14.2-18.0) L Hematocrit 38.6 % (42.0-52.0) L Mean Corpuscular Volume 98 FL (80-99) Mean Corpuscular Hemoglobin 33.3 PG (27.0-31.0) H Mean Corpuscular Hemoglobin Concent 34.0 G/DL (32.0-36.0) Red Cell Distribution Width 12.2 % (11.6-14.8) Platelet Count 100 K/UL (150-450) L Mean Platelet Volume 6.0 FL (6.5-10.1) L Neutrophils (%) (Auto) 68.7 % (45.0-75.0) Lymphocytes (%) (Auto) 20.0 % (20.0-45.0) Monocytes (%) (Auto) 9.0 % (1.0-10.0) Eosinophils (%) (Auto) 1.4 % (0.0-3.0) Basophils (%) (Auto) 0.9 % (0.0-2.0) Sodium Level 142 MMOL/L (136-145) Potassium Level 2.5 MMOL/L (3.5-5.1) *L Chloride Level 107 MMOL/L (98-107) Carbon Dioxide Level 32 MMOL/L (21-32) Anion Gap 4 mmol/L (5-15) L Blood Urea Nitrogen 19 mg/dL (7-18) H Creatinine 0.9 MG/DL (0.55-1.30) Estimat Glomerular Filtration Rate > 60 mL/min (>60) Glucose Level 105 MG/DL (74-106) Calcium Level 6.9 MG/DL (8.5-10.1) #L Objective HEENT: Atraumatic and normocephalic. Anicteric. Pupils are equal, round, and reactive to light and accommodation. Extraocular muscles intact. NECK: JVP less than 5 cm. No carotid bruit. Carotid upstrokes 2+ bilaterally. CVS: Normal S1, S2. Regular rate and rhythm. Tachycardiac. No murmurs, gallops , or rubs. LUNGS: Diminished breath sounds bilaterally. ABDOMEN: Large pannus. Cannot appreciate hepatosplenomegaly. Positive bowel sounds. EXTREMITIES: There is no evidence of edema, clubbing, or cyanosis. Carlos Martins MD Aug 30, 2018 00:23
[2018-08-30] MEDS: Vancomycin 1.5gm/D5W Premix 250 ML IVPB SCH ×3 (00:42→16:08)
[2018-08-30] MEDS: Albuterol/Ipratropium 3ml neb HHN PRN ×2 (03:30→20:08)
[2018-08-30 04:00] VITALS: BP 134/81
[2018-08-30 04:17] LABS: BASOPHILS % (AUTO) 0.6 % (0.0-2.0); EOSINOPHILS % (AUTO) 1.5 % (0.0-3.0); HEMOGLOBIN 12.9 G/DL (14.2-18.0); LYMPHOCYTES % (AUTO) 26.4 % (20.0-45.0); MEAN CORPUSCULAR VOLUME 96 FL (80-99); MONOCYTES % (AUTO) 8.2 % (1.0-10.0); NEUTROPHILS % (AUTO) 63.3 % (45.0-75.0); PLATELET COUNT 158 K/UL (150-450); RED BLOOD COUNT 3.95 M/UL (4.70-6.10); RED CELL DISTRIBUTION WIDTH 12.3 % (11.6-14.8); WHITE BLOOD COUNT 5.9 K/UL (4.8-10.8)
[2018-08-30 04:24] LABS: ANION GAP 3 mmol/L (5-15); BLOOD UREA NITROGEN 21 mg/dL (7-18); CALCIUM 8.4 MG/DL (8.5-10.1); CARBON DIOXIDE 34 MMOL/L (21-32); CHLORIDE 103 MMOL/L (98-107); CREATININE 1.1 MG/DL (0.55-1.30); POTASSIUM 3.8 MMOL/L (3.5-5.1); SODIUM 140 MMOL/L (136-145)
--- NOTE | 2018-08-30 07:45 | NUR ---
HAND-OFF: Report given to MICAELA Shearer.
[2018-08-30 08:00] VITALS: BP 145/99
--- NOTE | 2018-08-30 08:20 | Pulmonology Progress Note ---
Assessment/Plan Assessment/Plan ASSESSMENT Noncardiac chest pain , possibly due to anxiety COPD Right heart failure Obstructive sleep apnea Obesity hypoventilation syndrome Morbid obesity Abdominal wall cellulitis Abdominal pannus Posterior neck mass, likely due to inflamed lipoma Seizure disorder Hyperlipidemia Hypertension Mild pulmonary HTN MDD Anxiety, possible generalized anxiety disorder Hypokalemia PLAN OF CARE [facility] floor s/p diuresis with lasix drip abx as per ID recs BiPAP at HS and prn, decrease inspired pressure to 16 O2 titrate to keep sat above 90%, pulm toilet prn continue Theophylline serial troponin x 3 negative, ECG no acute ischemic changes, thus r/out for acute ID cardio follows ECHO with pEF 55-60%, no evidence of WMA, RVSP of 40 c/w mild pulmonary HTN per cardio likely noncardiac chest pain, possibly due to anxiety continue anti/PLT therapy with Plavix and statin , lipid panel stable Nitro prn DVT prophylaxis close monitoring of BP pain management fup with surgical recs monitor renal parameters, electrolytes, avoid nephrotoxic, correct electrolytes as needed follow-up with further nephro recs seizure precautions, continue Keppra psych meds as per psych recs supportive care bowel regimen case discussed and evaluated by supervising physician Subjective Allergies: Coded Allergies: ASPIRIN (Verified Allergy, Unknown, 07/14/18) KETOROLAC (Verified Allergy, Unknown, 07/14/18) PENICILLINS (Verified Allergy, Unknown, 07/14/18) Subjective afebrile, on 3L O2 vias NC, pulse ox stable pt tried to use BiPAP at night as order, reports that he feels too much of air is coming on Objective Last 24 Hour Vital Signs Date Time Temp Pulse Resp B/P (MAP) Pulse Ox O2 Delivery O2 Flow Rate FiO2 08/30/18 04:00 97.7 95 20 134/81 (98) 97 105 08/30/18 03:39 98 20 97 Nasal Cannula 2.0 28 08/30/18 03:31 100 20 18 Nasal Cannula 3.0 32 08/30/18 00:00 97.8 105 20 144/92 (109) 95 105 08/29/18 21:00 Room Air 08/29/18 20:00 98.0 105 20 161/97 (118) 95 105 08/29/18 19:53 99 20 99 Room Air 21 08/29/18 19:46 95 Nasal Cannula 32 08/29/18 19:46 85 18 Nasal Cannula 3.0 32 08/29/18 19:46 Nasal Cannula 3.0 32 08/29/18 19:40 85 18 95 Nasal Cannula 3.0 32 08/29/18 16:00 97.7 100 18 140/74 (96) 98 100 08/29/18 12:00 97.9 103 18 159/99 (119) 95 103 08/29/18 09:40 80 16 99 Nasal Cannula 2.0 28 08/29/18 09:20 88 18 94 Nasal Cannula 2.0 28 08/29/18 09:00 Room Air Intake and Output 08/29/18 08/30/18 18:59 06:59 Intake Total 800 ml 250 ml Output Total 800 ml Balance 800 ml -550 ml Intake Oral 800 ml IV Total 250 ml Output Urine Total 800 ml # Voids 6 Objective General Appearance: no acute distress, morbidly obese male A/A/O x 4 HEENT: normocephalic, atraumatic, anicteric, PERRL Respiratory/Chest: decreased breath sounds Cardiovascular: no JVD, tachycardia - distant heart sounds Abdomen: normal bowel sounds, abdomen soft with pannus , erythema, pannus changes Skin: other Neurologic/Psychiatric: no motor/sensory deficits, alert, oriented x 3, responsive Musculoskeletal: normal muscle bulk Laboratory Tests 08/30/18 04:00: White Blood Count 5.9, Red Blood Count 3.95L, Hemoglobin 12.9L, Hematocrit 38.0L , Mean Corpuscular Volume 96, Mean Corpuscular Hemoglobin 32.7H, Mean Corpuscular Hemoglobin Concent 34.0, Red Cell Distribution Width 12.3, Platelet Count 158#, Mean Platelet Volume 5.3L, Neutrophils (%) (Auto) 63.3, Lymphocytes (%) (Auto) 26.4, Monocytes (%) (Auto) 8.2, Eosinophils (%) (Auto) 1.5, Basophils (%) (Auto) 0.6, Sodium Level 140, Potassium Level 3.8#, Chloride Level 103, Carbon Dioxide Level 34H, Anion Gap 3L, Blood Urea Nitrogen 21H, Creatinine 1.1, Estimat Glomerular Filtration Rate > 60, Glucose Level 117H, Calcium Level 8.4#L, Magnesium Level 1.8 Current Medications Medications (Trade) Dose Ordered Sig/Luis Route PRN Reason Start Time Stop Time Status Last Admin Dose Admin Acetaminophen (Tylenol) 650 mg Q4H PRN ORAL FEVER 08/27/18 15:30 09/21/18 15:29 Acetaminophen/ Hydrocodone Bitart ([place] 10/325) 1 tab Q4H PRN ORAL pain 3-6 08/27/18 16:24 09/03/18 16:23 Albuterol/ Ipratropium (Albuterol/ Ipratropium) 3 ml Q4H PRN HHN Shortness of Breath 08/27/18 18:45 09/01/18 18:44 08/30/18 03:30 Atorvastatin Calcium (Lipitor) 80 mg BEDTIME ORAL 08/27/18 21:00 09/21/18 20:59 08/29/18 20:45 Chlorhexidine Gluconate (Ruby-Hex 2%) 1 applic DAILY@2000 TOPIC 08/27/18 20:00 09/24/18 19:59 08/29/18 20:44 Clopidogrel Bisulfate (Plavix) 75 mg DAILY ORAL 08/28/18 09:00 09/22/18 08:59 08/29/18 08:11 Enalaprilat (Vasotec) 2.5 mg Q6H PRN IV sbp more than 160 08/27/18 15:30 09/21/18 15:29 Furosemide 100 mg/ Dextrose 110 ml @ 11 mls/hr Q10H IV 08/27/18 16:00 09/24/18 15:59 08/30/18 03:42 Gabapentin (Neurontin) 600 mg THREE TIMES A DAY ORAL 08/27/18 18:00 09/22/18 08:59 08/29/18 17:35 Heparin Sodium (Porcine) (Heparin 5000 units/ml) 5,000 units EVERY 12 HOURS SUBQ 08/27/18 21:00 09/21/18 20:59 08/27/18 20:08 Hydromorphone HCl (Dilaudid) 3 mg Q3H PRN IVP Severe Pain (Pain Scale 7-10) 08/27/18 16:02 09/02/18 16:01 08/30/18 06:42 Levetiracetam (Keppra) 500 mg Q12HR ORAL 08/30/18 09:00 09/29/18 08:59 Morphine Sulfate (MS Contin) 15 mg Q12HR ORAL 08/27/18 21:00 08/30/18 08:59 08/29/18 20:44 Nitroglycerin (Ntg) 0.4 mg Q5M PRN SL Prn Chest Pain 08/27/18 15:30 09/21/18 15:29 Ondansetron HCl (Zofran) 4 mg Q6H PRN IVP Nausea & Vomiting 08/27/18 15:30 09/21/18 15:29 Polyethylene Glycol (Miralax) 17 gm DAILYPRN PRN ORAL Constipation 08/27/18 15:30 09/21/18 15:29 Potassium Chloride (K-Dur) 20 meq Q6HR ORAL 08/30/18 12:00 09/29/18 11:59 Theophylline (George-Dur) 100 mg DAILY ORAL 08/28/18 09:00 09/22/18 08:59 08/29/18 08:11 Trazodone HCl (Desyrel) 100 mg BEDTIME ORAL 08/27/18 21:00 09/23/18 20:59 08/29/18 20:44 Vancomycin HCl (Vanco rx to dose) 1 ea DAILY PRN MISC Per rx protocol 08/27/18 16:00 09/26/18 15:59 Vancomycin HCl/ Dextrose 250 ml @ 125 mls/hr Q8H IVPB 08/27/18 16:00 09/01/18 00:00 08/30/18 00:42 Kiera Vivar NP Aug 30, 2018 08:20
[2018-08-30] MEDS: Theophylline ER 100mg ORAL SCH (08:30)
[2018-08-30] MEDS: Heparin 5000 units/ml inj SUBQ SCH (08:35)
--- NOTE | 2018-08-30 08:41 | General Progress Note ---
Assessment/Plan Problem List: (1) Peripheral edema ICD Codes: R60.9 - Edema, unspecified SNOMED: 411172418 (2) COPD (chronic obstructive pulmonary disease) ICD Codes: J44.9 - Chronic obstructive pulmonary disease, unspecified SNOMED: 61539646 Qualifiers: Qualified Codes: J44.9 - Chronic obstructive pulmonary disease, unspecified (3) Leg pain ICD Codes: M79.606 - Pain in leg, unspecified SNOMED: 27365286 (4) Morbid obesity ICD Codes: E66.01 - Morbid (severe) obesity due to excess calories SNOMED: 151893230 (5) Seizures ICD Codes: R56.9 - Unspecified convulsions SNOMED: 24065634 (6) Right heart failure ICD Codes: I50.810 - Right heart failure, unspecified SNOMED: 958422844 (7) ACS (acute coronary syndrome) ICD Codes: I24.9 - Acute ischemic heart disease, unspecified SNOMED: 872310676 (8) Abdominal pannus ICD Codes: E65 - Localized adiposity SNOMED: 0477831930567 (9) Abdominal wall cellulitis ICD Codes: L03.311 - Cellulitis of abdominal wall SNOMED: 38028349 Status: unchanged Assessment/Plan o2 pulm tx abx prn seizure pain control pt diet cbc bmp am dc plan Subjective Constitutional: Reports: weakness Respiratory: Reports: shortness of breath Allergies: Coded Allergies: ASPIRIN (Verified Allergy, Unknown, 07/14/18) KETOROLAC (Verified Allergy, Unknown, 07/14/18) PENICILLINS (Verified Allergy, Unknown, 07/14/18) All Systems: reviewed and negative except above Subjective sitting sob Objective Last 24 Hour Vital Signs Date Time Temp Pulse Resp B/P (MAP) Pulse Ox O2 Delivery O2 Flow Rate FiO2 08/30/18 08:00 97.0 100 16 145/99 (114) 97 100 08/30/18 04:00 97.7 95 20 134/81 (98) 97 105 08/30/18 03:39 98 20 97 Nasal Cannula 2.0 28 08/30/18 03:31 100 20 18 Nasal Cannula 3.0 32 08/30/18 00:00 97.8 105 20 144/92 (109) 95 105 08/29/18 21:00 Room Air 08/29/18 20:00 98.0 105 20 161/97 (118) 95 105 08/29/18 19:53 99 20 99 Room Air 21 08/29/18 19:46 95 Nasal Cannula 32 08/29/18 19:46 85 18 Nasal Cannula 3.0 32 08/29/18 19:46 Nasal Cannula 3.0 32 08/29/18 19:40 85 18 95 Nasal Cannula 3.0 32 08/29/18 16:00 97.7 100 18 140/74 (96) 98 100 08/29/18 12:00 97.9 103 18 159/99 (119) 95 103 08/29/18 09:40 80 16 99 Nasal Cannula 2.0 28 08/29/18 09:20 88 18 94 Nasal Cannula 2.0 28 08/29/18 09:00 Room Air Intake and Output 08/29/18 08/30/18 19:00 07:00 Intake Total 800 ml 250 ml Output Total 800 ml Balance 800 ml -550 ml Intake Oral 800 ml IV Total 250 ml Output Urine Total 800 ml # Voids 6 Laboratory Tests 08/30/18 04:00: White Blood Count 5.9, Red Blood Count 3.95L, Hemoglobin 12.9L, Hematocrit 38.0L , Mean Corpuscular Volume 96, Mean Corpuscular Hemoglobin 32.7H, Mean Corpuscular Hemoglobin Concent 34.0, Red Cell Distribution Width 12.3, Platelet Count 158#, Mean Platelet Volume 5.3L, Neutrophils (%) (Auto) 63.3, Lymphocytes (%) (Auto) 26.4, Monocytes (%) (Auto) 8.2, Eosinophils (%) (Auto) 1.5, Basophils (%) (Auto) 0.6, Sodium Level 140, Potassium Level 3.8#, Chloride Level 103, Carbon Dioxide Level 34H, Anion Gap 3L, Blood Urea Nitrogen 21H, Creatinine 1.1, Estimat Glomerular Filtration Rate > 60, Glucose Level 117H, Calcium Level 8.4#L, Magnesium Level 1.8 Height (Feet): 5 Height (Inches): 11.00 Weight (Pounds): 495 General Appearance: lethargic EENT: normal ENT inspection Neck: normal alignment Cardiovascular: normal peripheral pulses, normal rate, regular rhythm Respiratory/Chest: chest wall non-tender, decreased breath sounds Abdomen: normal bowel sounds, non tender, soft, distended Extremities: swelling Edema: 2+ Arm (L), 2+ Arm (R), 2+ Leg (L), 2+ Leg (R), 2+ Pedal (L), 2+ Pedal ( R), 2+ Generalized Edema: mild edema Neurologic: responsive, motor weakness Skin: normal pigmentation, warm/dry Ernseto Nicole DO Aug 30, 2018 08:40
[2018-08-30] MEDS ORDERED: MS Contin 15mg tab ORAL SCH (10:15)
--- NOTE | 2018-08-30 10:57 | General Progress Note ---
Assessment/Plan Assessment/Plan (1) Lumbar DDD (2) Lumbar Spondylosis (3) Lumbar Radiculopathy (4) Morbid Obesity (5) Right knee pain (6) Right knee OA h/o ORIF Patient will be continued on Morphine ER and Dilaudid We will start Robaxin 500mg PO 1 tab Q8H PRN muscle spasm D/w Dr. Magaña and he concurred. Subjective Date patient seen: Aug 30, 2018 Time patient seen: 10:15 - am Allergies: Coded Allergies: ASPIRIN (Verified Allergy, Unknown, 07/14/18) KETOROLAC (Verified Allergy, Unknown, 07/14/18) PENICILLINS (Verified Allergy, Unknown, 07/14/18) Subjective REVIEW OF SYSTEMS: Denies rash, fever, chills, sweating, dizziness, drowsiness, blurred vision, sore throat, change in weight. No nausea, vomiting, diarrhea, or blood in the stool or urine. No bowel or bladder incontinence. No dysuria. He is complaining of low back pain and right lower extremity pain. SUBJECTIVE: Patient is in bed continues to c/o pain and now having muscle spasm. Pain is tolerated on the Morphine ER and Dilaudid. D/w him about Robaxin and he understands. Objective Last 24 Hour Vital Signs Date Time Temp Pulse Resp B/P (MAP) Pulse Ox O2 Delivery O2 Flow Rate FiO2 08/30/18 08:32 97 Nasal Cannula 3.0 32 08/30/18 08:32 97 18 Nasal Cannula 3.0 32 08/30/18 08:32 Nasal Cannula 3.0 32 08/30/18 08:00 97.0 100 16 145/99 (114) 97 100 08/30/18 04:00 97.7 95 20 134/81 (98) 97 105 08/30/18 03:39 98 20 97 Nasal Cannula 2.0 28 08/30/18 03:31 100 20 18 Nasal Cannula 3.0 32 08/30/18 00:00 97.8 105 20 144/92 (109) 95 105 08/29/18 21:00 Room Air 08/29/18 20:00 98.0 105 20 161/97 (118) 95 105 08/29/18 19:53 99 20 99 Room Air 21 08/29/18 19:46 95 Nasal Cannula 32 08/29/18 19:46 85 18 Nasal Cannula 3.0 32 08/29/18 19:46 Nasal Cannula 3.0 32 08/29/18 19:40 85 18 95 Nasal Cannula 3.0 32 08/29/18 16:00 97.7 100 18 140/74 (96) 98 100 08/29/18 12:00 97.9 103 18 159/99 (119) 95 103 Intake and Output 08/29/18 08/30/18 18:59 06:59 Intake Total 800 ml 250 ml Output Total 800 ml Balance 800 ml -550 ml Intake Oral 800 ml IV Total 250 ml Output Urine Total 800 ml # Voids 6 Laboratory Tests 08/30/18 04:00: White Blood Count 5.9, Red Blood Count 3.95L, Hemoglobin 12.9L, Hematocrit 38.0L , Mean Corpuscular Volume 96, Mean Corpuscular Hemoglobin 32.7H, Mean Corpuscular Hemoglobin Concent 34.0, Red Cell Distribution Width 12.3, Platelet Count 158#, Mean Platelet Volume 5.3L, Neutrophils (%) (Auto) 63.3, Lymphocytes (%) (Auto) 26.4, Monocytes (%) (Auto) 8.2, Eosinophils (%) (Auto) 1.5, Basophils (%) (Auto) 0.6, Sodium Level 140, Potassium Level 3.8#, Chloride Level 103, Carbon Dioxide Level 34H, Anion Gap 3L, Blood Urea Nitrogen 21H, Creatinine 1.1, Estimat Glomerular Filtration Rate > 60, Glucose Level 117H, Calcium Level 8.4#L, Magnesium Level 1.8 Height (Feet): 5 Height (Inches): 11.00 Weight (Pounds): 495 Objective GENERAL: Alert, awake, and oriented x3. LUNGS: Decreased breath sounds bilaterally. HEART: S1 and S2, regular. ABDOMEN: Obese, tender ness to palpation with skin changes noted. EXTREMITIES: No cyanosis. No clubbing. No edema. NEURO: No Focal deficits. Eliezer Nicole Aug 30, 2018 10:57
[2018-08-30] MEDS ORDERED: Methocarbamol 500mg tab ORAL PRN (11:00)
[2018-08-30] MEDS: MS Contin 15mg tab ORAL SCH ×2 (11:50→20:36)
[2018-08-30 12:00] VITALS: BP 136/78
--- NOTE | 2018-08-30 12:24 | Infectious Diseases Prog Note ---
Assessment/Plan Assessment/Plan 52 yo male with PMHx of Seizures, COPD and CHF who [facility] for SOB. Posterior neck mass \ Most likely inflamed lipoma per US read Unable to get MRI or CT so will continue abx as this will treat any cellulitic component of his inflamed pannus as well. No fever No leukocytosis 08/26/18 US neck shows possible lipoma Facial sores. Likely some sort of staph infection Sores seem to be healing. Pannus Erythema of skin - PPT PLAN -Continue Vancomyin #5 Consider switching to cefazolin if not improving - Monitor CBC and Temps We will continue to follow the patient during this hospitalization. Subjective Allergies: Coded Allergies: ASPIRIN (Verified Allergy, Unknown, 07/14/18) KETOROLAC (Verified Allergy, Unknown, 07/14/18) PENICILLINS (Verified Allergy, Unknown, 07/14/18) Subjective afebrile no leukocytosis Objective Vital Signs Last 24 Hour Vital Signs Date Time Temp Pulse Resp B/P (MAP) Pulse Ox O2 Delivery O2 Flow Rate FiO2 08/30/18 12:00 98.1 109 16 136/78 (97) 95 109 08/30/18 10:24 97.0 08/30/18 09:00 Room Air 08/30/18 08:32 97 Nasal Cannula 3.0 32 08/30/18 08:32 97 18 Nasal Cannula 3.0 32 08/30/18 08:32 Nasal Cannula 3.0 32 08/30/18 08:00 97.0 100 16 145/99 (114) 97 100 08/30/18 04:00 97.7 95 20 134/81 (98) 97 105 08/30/18 03:39 98 20 97 Nasal Cannula 2.0 28 08/30/18 03:31 100 20 18 Nasal Cannula 3.0 32 08/30/18 00:00 97.8 105 20 144/92 (109) 95 105 08/29/18 21:00 Room Air 08/29/18 20:00 98.0 105 20 161/97 (118) 95 105 08/29/18 19:53 99 20 99 Room Air 21 08/29/18 19:46 95 Nasal Cannula 32 08/29/18 19:46 85 18 Nasal Cannula 3.0 32 08/29/18 19:46 Nasal Cannula 3.0 32 08/29/18 19:40 85 18 95 Nasal Cannula 3.0 32 08/29/18 16:00 97.7 100 18 140/74 (96) 98 100 Height (Feet): 5 Height (Inches): 11.00 Weight (Pounds): 495 Objective Gen: NAD, well appearing, alert HEENT: NCAT, MMM, EOMl LUNGS: CTAB, No W CARDS: RRR, S1, S2, No M/R/G, ABD: Soft, Obese, Enlarged pannus with mild erythema and TTP. No warmth. + BS Ext: Severe edema of feet, Pulses 2+ B/L (DP, Rad): NEURO: A/O x 4, Strength and Sensation Grossly intact SKIN: Small scabbed sores on for head and arms (healing) posterior left neck with 3-4cm area of pain with swelling. Erythema and warmth resolved Laboratory Tests Test 08/30/18 04:00 White Blood Count 5.9 K/UL (4.8-10.8) Red Blood Count 3.95 M/UL (4.70-6.10) L Hemoglobin 12.9 G/DL (14.2-18.0) L Hematocrit 38.0 % (42.0-52.0) L Mean Corpuscular Volume 96 FL (80-99) Mean Corpuscular Hemoglobin 32.7 PG (27.0-31.0) H Mean Corpuscular Hemoglobin Concent 34.0 G/DL (32.0-36.0) Red Cell Distribution Width 12.3 % (11.6-14.8) Platelet Count 158 K/UL (150-450) # Mean Platelet Volume 5.3 FL (6.5-10.1) L Neutrophils (%) (Auto) 63.3 % (45.0-75.0) Lymphocytes (%) (Auto) 26.4 % (20.0-45.0) Monocytes (%) (Auto) 8.2 % (1.0-10.0) Eosinophils (%) (Auto) 1.5 % (0.0-3.0) Basophils (%) (Auto) 0.6 % (0.0-2.0) Sodium Level 140 MMOL/L (136-145) Potassium Level 3.8 MMOL/L (3.5-5.1) # Chloride Level 103 MMOL/L (98-107) Carbon Dioxide Level 34 MMOL/L (21-32) H Anion Gap 3 mmol/L (5-15) L Blood Urea Nitrogen 21 mg/dL (7-18) H Creatinine 1.1 MG/DL (0.55-1.30) Estimat Glomerular Filtration Rate > 60 mL/min (>60) Glucose Level 117 MG/DL (74-106) H Calcium Level 8.4 MG/DL (8.5-10.1) #L Magnesium Level 1.8 MG/DL (1.8-2.4) Current Medications Medications (Trade) Dose Ordered Sig/Luis Route PRN Reason Start Time Stop Time Status Last Admin Dose Admin Acetaminophen (Tylenol) 650 mg Q4H PRN ORAL FEVER 08/27/18 15:30 09/21/18 15:29 Acetaminophen/ Hydrocodone Bitart ([place] 10/325) 1 tab Q4H PRN ORAL pain 3-6 08/27/18 16:24 09/03/18 16:23 Albuterol/ Ipratropium (Albuterol/ Ipratropium) 3 ml Q4H PRN HHN Shortness of Breath 08/27/18 18:45 09/01/18 18:44 08/30/18 03:30 Atorvastatin Calcium (Lipitor) 80 mg BEDTIME ORAL 08/27/18 21:00 09/21/18 20:59 08/29/18 20:45 Chlorhexidine Gluconate (Ruby-Hex 2%) 1 applic DAILY@2000 TOPIC 08/27/18 20:00 09/24/18 19:59 08/29/18 20:44 Clopidogrel Bisulfate (Plavix) 75 mg DAILY ORAL 08/28/18 09:00 09/22/18 08:59 08/30/18 08:29 Enalaprilat (Vasotec) 2.5 mg Q6H PRN IV sbp more than 160 08/27/18 15:30 09/21/18 15:29 Furosemide 100 mg/ Dextrose 110 ml @ 11 mls/hr Q10H IV 08/27/18 16:00 09/24/18 15:59 08/30/18 03:42 Gabapentin (Neurontin) 600 mg THREE TIMES A DAY ORAL 08/27/18 18:00 09/22/18 08:59 08/30/18 12:01 Heparin Sodium (Porcine) (Heparin 5000 units/ml) 5,000 units EVERY 12 HOURS SUBQ 08/27/18 21:00 09/21/18 20:59 08/30/18 08:35 Hydromorphone HCl (Dilaudid) 3 mg Q3H PRN IVP Severe Pain (Pain Scale 7-10) 08/27/18 16:02 09/02/18 16:01 08/30/18 09:54 Levetiracetam (Keppra) 500 mg Q12HR ORAL 08/30/18 09:00 09/29/18 08:59 08/30/18 08:32 Methocarbamol (Robaxin) 500 mg Q8H PRN ORAL muscle spasm 08/30/18 11:00 09/29/18 10:59 Morphine Sulfate (MS Contin) 15 mg Q12HR ORAL 08/30/18 10:45 09/06/18 10:44 08/30/18 11:50 Nitroglycerin (Ntg) 0.4 mg Q5M PRN SL Prn Chest Pain 08/27/18 15:30 09/21/18 15:29 Ondansetron HCl (Zofran) 4 mg Q6H PRN IVP Nausea & Vomiting 08/27/18 15:30 09/21/18 15:29 Polyethylene Glycol (Miralax) 17 gm DAILYPRN PRN ORAL Constipation 08/27/18 15:30 09/21/18 15:29 Potassium Chloride (K-Dur) 20 meq Q6HR ORAL 08/30/18 12:00 09/29/18 11:59 08/30/18 11:51 Theophylline (George-Dur) 100 mg DAILY ORAL 08/28/18 09:00 09/22/18 08:59 08/30/18 08:30 Trazodone HCl (Desyrel) 100 mg BEDTIME ORAL 08/27/18 21:00 09/23/18 20:59 08/29/18 20:44 Vancomycin HCl (Vanco rx to dose) 1 ea DAILY PRN MISC Per rx protocol 08/27/18 16:00 09/26/18 15:59 Vancomycin HCl/ Dextrose 250 ml @ 125 mls/hr Q8H IVPB 1/31/19 16:00 09/01/18 00:00 08/30/18 08:28 Alexa Patterson M.D. Aug 30, 2018 12:24
--- NOTE | 2018-08-30 13:07 | Surgery Progress Note ---
Surgery Progress Note Subjective Additional Comments no acute events. Objective Last 24 Hour Vital Signs Date Time Temp Pulse Resp B/P (MAP) Pulse Ox O2 Delivery O2 Flow Rate FiO2 08/30/18 12:00 98.1 109 16 136/78 (97) 95 109 08/30/18 10:24 97.0 08/30/18 09:00 Room Air 08/30/18 08:32 97 Nasal Cannula 3.0 32 08/30/18 08:32 97 18 Nasal Cannula 3.0 32 08/30/18 08:32 Nasal Cannula 3.0 32 08/30/18 08:00 97.0 100 16 145/99 (114) 97 100 08/30/18 04:00 97.7 95 20 134/81 (98) 97 105 08/30/18 03:39 98 20 97 Nasal Cannula 2.0 28 08/30/18 03:31 100 20 18 Nasal Cannula 3.0 32 08/30/18 00:00 97.8 105 20 144/92 (109) 95 105 08/29/18 21:00 Room Air 08/29/18 20:00 98.0 105 20 161/97 (118) 95 105 08/29/18 19:53 99 20 99 Room Air 21 08/29/18 19:46 95 Nasal Cannula 32 08/29/18 19:46 85 18 Nasal Cannula 3.0 32 08/29/18 19:46 Nasal Cannula 3.0 32 08/29/18 19:40 85 18 95 Nasal Cannula 3.0 32 08/29/18 16:00 97.7 100 18 140/74 (96) 98 100 I&O Intake and Output 08/29/18 08/30/18 18:59 06:59 Intake Total 800 ml 250 ml Output Total 800 ml Balance 800 ml -550 ml Intake Oral 800 ml IV Total 250 ml Output Urine Total 800 ml # Voids 6 Dressing: other Wound: other Drains: other Cardiovascular: RSR Respiratory: decreased breath sounds Abdomen: other Extremities: other Laboratory Tests Test 08/30/18 04:00 White Blood Count 5.9 K/UL (4.8-10.8) Red Blood Count 3.95 M/UL (4.70-6.10) L Hemoglobin 12.9 G/DL (14.2-18.0) L Hematocrit 38.0 % (42.0-52.0) L Mean Corpuscular Volume 96 FL (80-99) Mean Corpuscular Hemoglobin 32.7 PG (27.0-31.0) H Mean Corpuscular Hemoglobin Concent 34.0 G/DL (32.0-36.0) Red Cell Distribution Width 12.3 % (11.6-14.8) Platelet Count 158 K/UL (150-450) # Mean Platelet Volume 5.3 FL (6.5-10.1) L Neutrophils (%) (Auto) 63.3 % (45.0-75.0) Lymphocytes (%) (Auto) 26.4 % (20.0-45.0) Monocytes (%) (Auto) 8.2 % (1.0-10.0) Eosinophils (%) (Auto) 1.5 % (0.0-3.0) Basophils (%) (Auto) 0.6 % (0.0-2.0) Sodium Level 140 MMOL/L (136-145) Potassium Level 3.8 MMOL/L (3.5-5.1) # Chloride Level 103 MMOL/L (98-107) Carbon Dioxide Level 34 MMOL/L (21-32) H Anion Gap 3 mmol/L (5-15) L Blood Urea Nitrogen 21 mg/dL (7-18) H Creatinine 1.1 MG/DL (0.55-1.30) Estimat Glomerular Filtration Rate > 60 mL/min (>60) Glucose Level 117 MG/DL (74-106) H Calcium Level 8.4 MG/DL (8.5-10.1) #L Magnesium Level 1.8 MG/DL (1.8-2.4) Plan Problems: (1) Abdominal wall cellulitis Assessment & Plan: very fluid overloaded developing cellulitis of pannus and lower extremities. no abscess. pannus much larger than prior with erythema and edema and induration lower extremities with severe edema and blistering and cellulitis Lasix IV Abx keep legs elevated unfortunately no surgical intervention at this time. will need to follow closely for abscess development thank you (2) Abdominal pannus Gt Fernandez Aug 30, 2018 13:07
--- NOTE | 2018-08-30 15:07 | NUR ---
NURSE NOTES: taken inadvertently 2 vials of 2mg Dilaudid each, but patient wasn't due yet, so brought the 2 vials of Dilaudid unopened to pharmacist Nereyda. Also, checked with Iza compatibility of Cefepime and Lasix IV. Being both compatible according to Nereyda, infused them at the same time.
[2018-08-30] MEDS: ceFAZolin sod 2 GM in D5W 110 ML IVPB SCH ×2 (15:13→21:27)
[2018-08-30 16:00] VITALS: BP 104/71
--- NOTE | 2018-08-30 17:00 | NUR ---
NURSE NOTES: patient refused nurse to get him a chair to keep legs raised while he's seated at the edge of bed. patient also refused nurse to place pillows under his legs, saying it'll make his back hurt more.
--- NOTE | 2018-08-30 17:15 | Progress Note ---
DATE: 08/30/2018 SUBJECTIVE: The patient is a 52-year-old male patient with COPD, continued to have confusion and disorganized thought process and he has declined cognition below the baseline. That is why the attending has requested daily psychiatric consultation for COPD, but also has high levels of anxiety. That is why, his attending has requested daily psychiatric consultation. MENTAL STATUS EXAMINATION: This is a 52-year-old male. His appearance is disheveled. Attitude, irritable and agitated. Affect, guarded and restricted. Intellect poor. Mood depressed and anxious. Motor activity, psychomotor agitation. Attention span is poor. Orientation x2. Speech is pressured. Thought process, disorganized and illogical. Thought content, auditory hallucinations and paranoid delusions. Insight and judgment is poor. DIAGNOSIS: Generalized anxiety disorder. PLAN: Treat with Neurontin 600 mg q.12 h., trazodone 100 mg nightly. Provide him with 20 minutes of cognitive behavioral therapy to help him identify automatic negative thoughts and help him convert those negative thoughts to more positive thoughts to reduce depression, anxiety, and suicidality. Chart reviewed and discussed with staff. 20 minutes of cognitive behavior therapy provided. Chart reviewed and discussed with staff. Seen and assessed in room. Laney Mcghee M.D. DR: Lois JOB#: [id number] CC:
--- NOTE | 2018-08-30 17:26 | Nephrology Progress Note ---
Assessment/Plan Assessment 1. Persistent hypokalemia, most likely renal loss. 2. Prerenal azotemia. 3. Fluid overload. 4. Cellulitis of abdominal wall and pannus. 5. Cellulitis of the lower extremity. 6.hypokalemia Plan replace k check mg daily wt check in and out put avoid NSAID Fluid restriction Subjective Subjective alert and awake has good urine out put Objective Objective Last 24 Hour Vital Signs Date Time Temp Pulse Resp B/P (MAP) Pulse Ox O2 Delivery O2 Flow Rate FiO2 08/30/18 16:00 98.2 109 18 104/71 (82) 94 106 08/30/18 12:20 98.1 08/30/18 12:20 98.1 08/30/18 12:00 98.1 109 16 136/78 (97) 95 109 08/30/18 09:00 Room Air 08/30/18 08:32 97 Nasal Cannula 3.0 32 08/30/18 08:32 97 18 Nasal Cannula 3.0 32 08/30/18 08:32 Nasal Cannula 3.0 32 08/30/18 08:00 97.0 100 16 145/99 (114) 97 100 08/30/18 04:00 97.7 95 20 134/81 (98) 97 105 08/30/18 03:39 98 20 97 Nasal Cannula 2.0 28 08/30/18 03:31 100 20 18 Nasal Cannula 3.0 32 08/30/18 00:00 97.8 105 20 144/92 (109) 95 105 08/29/18 21:00 Room Air 08/29/18 20:00 98.0 105 20 161/97 (118) 95 105 08/29/18 19:53 99 20 99 Room Air 21 08/29/18 19:46 95 Nasal Cannula 32 08/29/18 19:46 85 18 Nasal Cannula 3.0 32 08/29/18 19:46 Nasal Cannula 3.0 32 08/29/18 19:40 85 18 95 Nasal Cannula 3.0 32 Intake and Output 08/29/18 08/30/18 19:00 07:00 Intake Total 800 ml 261 ml Output Total 800 ml Balance 800 ml -539 ml Intake Oral 800 ml IV Total 261 ml Output Urine Total 800 ml # Voids 6 Laboratory Tests 08/30/18 04:00: White Blood Count 5.9, Red Blood Count 3.95L, Hemoglobin 12.9L, Hematocrit 38.0L , Mean Corpuscular Volume 96, Mean Corpuscular Hemoglobin 32.7H, Mean Corpuscular Hemoglobin Concent 34.0, Red Cell Distribution Width 12.3, Platelet Count 158#, Mean Platelet Volume 5.3L, Neutrophils (%) (Auto) 63.3, Lymphocytes (%) (Auto) 26.4, Monocytes (%) (Auto) 8.2, Eosinophils (%) (Auto) 1.5, Basophils (%) (Auto) 0.6, Sodium Level 140, Potassium Level 3.8#, Chloride Level 103, Carbon Dioxide Level 34H, Anion Gap 3L, Blood Urea Nitrogen 21H, Creatinine 1.1, Estimat Glomerular Filtration Rate > 60, Glucose Level 117H, Calcium Level 8.4#L, Magnesium Level 1.8 Height (Feet): 5 Height (Inches): 11.00 Weight (Pounds): 495 Objective HEAD AND NECK: No JVP. No LAD. No thyromegaly. Extraocular movement intact. Pupils are reactive to light and accommodation. LUNGS: Decreased breathing sound on both sides. CARDIAC: Regular rate and rhythm. S1-S2. No murmur. No rub. ABDOMEN: Obese and has enlarged pannus, which is red, is swollen and he also has some secretion from his belly button. EXTREMITIES: Both lower extremities have edema, increasing redness, chronic changes, left more than right. Misty Jonas MD Aug 30, 2018 17:26
--- NOTE | 2018-08-30 19:13 | NUR ---
HAND-OFF: Report given to MICAELA Cabrera.
--- NOTE | 2018-08-30 19:50 | NUR ---
NURSE NOTES: Received patient on bed in sitting position. On O2 2L via N/C, no SOB, no acute distress. PICC line on LARRY intact, patent with dry dressing, running Lasix IV. Reminded patient regarding fluid restriction, pt verbalized understanding. Bed in lowest position, locked, alarms on. Call light in reach.
[2018-08-30 20:00] VITALS: BP 107/93
[2018-08-30] MEDS: TraZODone 100mg tab ORAL SCH (20:36)
[2018-08-30] MEDS: Atorvastatin 80mg tab ORAL SCH (20:36)
[2018-08-30] MEDS: Dyna-Hex 2% Top Sol 2oz TOPIC SCH (20:36)
--- NOTE | 2018-08-30 21:53 | Consultation ---
History of Present Illness General Chief Complaint: Chest Pain Reason for Consultation: Abscess Present Illness Allergies: Coded Allergies: ASPIRIN (Verified Allergy, Unknown, 07/14/18) KETOROLAC (Verified Allergy, Unknown, 07/14/18) PENICILLINS (Verified Allergy, Unknown, 07/14/18) Medication History Scheduled Atorvastatin Calcium* (Lipitor*), 80 MG ORAL BEDTIME, (Reported) Clopidogrel* (Clopidogrel*), 75 MG ORAL DAILY, (Reported) Diltiazem Hcl (Diltiazem Hcl), 120 MG PO DAILY, (Reported) Docusate Sodium* (Docusate Sodium*), 100 MG ORAL DAILY, (Reported) Furosemide* (Lasix*), 40 MG ORAL DAILY, (Reported) Gabapentin* (Gabapentin*), 600 MG ORAL THREE TIMES A DAY, (Reported) Ipratropium/Albuterol Sulfate (DuoNeb 0.5-3(2.5)mg/3ml), 3 ML HHN Q6HR, ( Reported) Isosorbide Dinitrate (Isosorbide Dinitrate), 30 MG PO DAILY, (Reported) Isosorbide Mononitrate (Isosorbide Mononitrate Er), 30 MG PO DAILY, (Reported) Levetiracetam (Keppra Xr), 500 MG ORAL BID, (Reported) Morphine Sulfate (Morphine Sulfate Er), 15 MG PO DAILY, (Reported) Theophylline Anhydrous (George-24), 300 MG PO DAILY, (Reported) Tiotropium [place] (Spiriva), 0 INH DAILY, (Reported) Scheduled PRN Acetaminophen* (Acetaminophen 325MG Tablet*), 650 MG ORAL Q4H PRN for Mild Pain/ Temp > 100.5, (Reported) Bisacodyl (Dulcolax), 10 MG RC DAILY PRN for IF MOM INEFFECTIVE, (Reported) Codeine/Promethazine Hcl* (Promethazine-Codeine Syrup*), 5 ML ORAL Q4H PRN for For Cough, (Reported) Hydrocodone Bit/Acetaminophen 10-325* (Elida 10-325*), 1 TAB ORAL Q4H PRN for For Pain, (Reported) Magnesium Hydroxide* (Milk Of Magnesia*), 30 ML ORAL BEDTIME PRN for IF DOCUSATE INEFFECTIVE, (Reported) Na Phos,M-B/Na Phos,Di-Ba* (Fleet Enema*), 133 ML RECTAL QOD PRN for IF DULCOLAX INEFFECTIVE, (Reported) Nitroglycerin (Nitrostat), 0.4 MG SL Q5M X3 DOSES PRN for CHEST PAIN, (Reported) Polyethylene Glycol 3350* (Miralax*), 17 GM ORAL DAILY PRN for Constipation, ( Reported) Patient History Healthcare decision maker N Resuscitation status Full Code Advanced Directive on File No Physical Exam Last 24 Hour Vital Signs Date Time Temp Pulse Resp B/P (MAP) Pulse Ox O2 Delivery O2 Flow Rate FiO2 08/30/18 20:22 Nasal Cannula 3.0 32 08/30/18 20:22 94 Nasal Cannula 3.0 32 08/30/18 20:21 105 20 95 Nasal Cannula 2.0 28 08/30/18 20:21 104 20 Nasal Cannula 3.0 32 08/30/18 20:08 105 20 94 Nasal Cannula 3.0 32 08/30/18 19:22 98.2 08/30/18 16:00 98.2 109 18 104/71 (82) 94 106 08/30/18 12:20 98.1 08/30/18 12:00 98.1 109 16 136/78 (97) 95 109 08/30/18 09:00 Room Air 08/30/18 08:32 97 Nasal Cannula 3.0 32 08/30/18 08:32 97 18 Nasal Cannula 3.0 32 08/30/18 08:32 Nasal Cannula 3.0 32 08/30/18 08:00 97.0 100 16 145/99 (114) 97 100 08/30/18 04:00 97.7 95 20 134/81 (98) 97 105 08/30/18 03:39 98 20 97 Nasal Cannula 2.0 28 08/30/18 03:31 100 20 18 Nasal Cannula 3.0 32 08/30/18 00:00 97.8 105 20 144/92 (109) 95 105 Intake and Output 08/29/18 08/30/18 19:00 07:00 Intake Total 800 ml 741 ml Output Total 800 ml Balance 800 ml -59 ml Intake Oral 800 ml 480 ml IV Total 261 ml Output Urine Total 800 ml # Voids 6 Laboratory Tests Test 08/30/18 04:00 White Blood Count 5.9 K/UL (4.8-10.8) Red Blood Count 3.95 M/UL (4.70-6.10) L Hemoglobin 12.9 G/DL (14.2-18.0) L Hematocrit 38.0 % (42.0-52.0) L Mean Corpuscular Volume 96 FL (80-99) Mean Corpuscular Hemoglobin 32.7 PG (27.0-31.0) H Mean Corpuscular Hemoglobin Concent 34.0 G/DL (32.0-36.0) Red Cell Distribution Width 12.3 % (11.6-14.8) Platelet Count 158 K/UL (150-450) # Mean Platelet Volume 5.3 FL (6.5-10.1) L Neutrophils (%) (Auto) 63.3 % (45.0-75.0) Lymphocytes (%) (Auto) 26.4 % (20.0-45.0) Monocytes (%) (Auto) 8.2 % (1.0-10.0) Eosinophils (%) (Auto) 1.5 % (0.0-3.0) Basophils (%) (Auto) 0.6 % (0.0-2.0) Sodium Level 140 MMOL/L (136-145) Potassium Level 3.8 MMOL/L (3.5-5.1) # Chloride Level 103 MMOL/L (98-107) Carbon Dioxide Level 34 MMOL/L (21-32) H Anion Gap 3 mmol/L (5-15) L Blood Urea Nitrogen 21 mg/dL (7-18) H Creatinine 1.1 MG/DL (0.55-1.30) Estimat Glomerular Filtration Rate > 60 mL/min (>60) Glucose Level 117 MG/DL (74-106) H Calcium Level 8.4 MG/DL (8.5-10.1) #L Magnesium Level 1.8 MG/DL (1.8-2.4) Height (Feet): 5 Height (Inches): 11.00 Weight (Pounds): 495 Medications Current Medications Medications (Trade) Dose Ordered Sig/Luis Route PRN Reason Start Time Stop Time Status Last Admin Dose Admin Acetaminophen (Tylenol) 650 mg Q4H PRN ORAL FEVER 08/27/18 15:30 09/21/18 15:29 Acetaminophen/ Hydrocodone Bitart (Elida 10325) 1 tab Q4H PRN ORAL pain 3-6 08/27/18 16:24 09/03/18 16:23 Albuterol/ Ipratropium (Albuterol/ Ipratropium) 3 ml Q4H PRN HHN Shortness of Breath 08/27/18 18:45 09/01/18 18:44 08/30/18 20:08 Atorvastatin Calcium (Lipitor) 80 mg BEDTIME ORAL 08/27/18 21:00 09/21/18 20:59 08/30/18 20:36 Cefazolin Sodium 50 ml @ 100 mls/hr Q8HR IV 08/31/18 06:00 09/07/18 05:59 Cefazolin Sodium 2 gm/Dextrose 110 ml @ 220 mls/hr Q8HR IVPB 08/30/18 14:00 08/31/18 00:00 08/30/18 15:13 Chlorhexidine Gluconate (Ruby-Hex 2%) 1 applic DAILY@2000 TOPIC 08/27/18 20:00 09/24/18 19:59 08/30/18 20:36 Clopidogrel Bisulfate (Plavix) 75 mg DAILY ORAL 08/28/18 09:00 09/22/18 08:59 08/30/18 08:29 Enalaprilat (Vasotec) 2.5 mg Q6H PRN IV sbp more than 160 08/27/18 15:30 09/21/18 15:29 Furosemide 100 mg/ Dextrose 110 ml @ 11 mls/hr Q10H IV 08/27/18 16:00 09/24/18 15:59 08/30/18 15:13 Gabapentin (Neurontin) 600 mg THREE TIMES A DAY ORAL 08/27/18 18:00 09/22/18 08:59 08/30/18 17:58 Hydromorphone HCl (Dilaudid) 3 mg Q3H PRN IVP Severe Pain (Pain Scale 7-10) 08/27/18 16:02 09/02/18 16:01 08/30/18 18:52 Levetiracetam (Keppra) 500 mg Q12HR ORAL 08/30/18 09:00 09/29/18 08:59 08/30/18 20:36 Methocarbamol (Robaxin) 500 mg Q8H PRN ORAL muscle spasm 08/30/18 11:00 09/29/18 10:59 Morphine Sulfate (MS Contin) 15 mg Q12HR ORAL 08/30/18 10:45 09/06/18 10:44 08/30/18 20:36 Nitroglycerin (Ntg) 0.4 mg Q5M PRN SL Prn Chest Pain 08/27/18 15:30 09/21/18 15:29 Ondansetron HCl (Zofran) 4 mg Q6H PRN IVP Nausea & Vomiting 08/27/18 15:30 09/21/18 15:29 Polyethylene Glycol (Miralax) 17 gm DAILYPRN PRN ORAL Constipation 08/27/18 15:30 09/21/18 15:29 Potassium Chloride (K-Dur) 20 meq Q6HR ORAL 08/30/18 12:00 09/29/18 11:59 08/30/18 17:59 Theophylline (George-Dur) 100 mg DAILY ORAL 08/28/18 09:00 09/22/18 08:59 08/30/18 08:30 Trazodone HCl (Desyrel) 100 mg BEDTIME ORAL 08/27/18 21:00 09/23/18 20:59 08/30/18 20:36 Vancomycin HCl (Vanco rx to dose) 1 ea DAILY PRN MISC Per rx protocol 08/27/18 16:00 09/26/18 15:59 Vancomycin HCl/ Dextrose 250 ml @ 125 mls/hr Q8H IVPB 08/27/18 16:00 09/01/18 00:00 08/30/18 16:08 Assessment/Plan Assessment/Plan Hematology/Oncology Consultation Requesting MD: Ernesto Nicole Date of Service: 08/30/2018 Reason for consultation: Anemia and Thrombocytopenia HISTORY OF PRESENT ILLNESS: The patient is an unfortunate 52-year-old male with past medical history significant for history of COPD, morbid obesity, history of seizure disorder, and hypertension. He was readmitted at [facility] recently with diagnosis of chest pain and increasing dyspnea on exertion, increasing lower extremity swelling and COPD. The patient was admitted to the hospital, was started on Lasix. Over the course of hospital admission, the patient found to have cellulitis of the lower extremities. He also found to have increasing erythema and warmth on his pannus of the abdomen. The patient was started on IV antibiotics, and I was called for management of renal disease and electrolyte imbalance. Hematology/Oncology was consulted for Anemia and Thrombocytopenia. Hgb 12.9, plt 158 ALLERGIES: He is allergic to aspirin and Ketorolac. PAST MEDICAL HISTORY: Includes morbidly obese, seizure, edema, congestive heart failure, and COPD. PAST SURGICAL HISTORY: Knee surgery, thyroid surgery, and lithotripsy. MEDICATIONS: Include Plavix, Lasix, Neurontin, Spiriva, Vicente, MS Contin, Dilaudid, Lipitor, heparin, hydrocodone, nitroglycerin, Zofran, enalapril, and diltiazem. SOCIAL HISTORY: Positive smoking. No alcohol. No intravenous drug abuse. FAMILY HISTORY: Noncontributory. PHYSICAL EXAMINATION: GENERAL: O2 NC, slightly anxious in bed, slight short of breath. VITAL SIGNS: Temperature is 97 degrees, pulse 87, respirations 22, and blood pressure 136/75. CARDIOVASCULAR: No murmur. LUNGS: Poor exchange. ABDOMEN: Bowel sounds distant. EXTREMITIES: Show no cyanosis or clubbing. 1+ edema. NEUROLOGIC: The patient moves all extremities, slightly weak. LABS: wbc: 5.9, hgb 12.9, plt 158 ASSESSMENT/RECOMMENDATIONS # Anemia of chronic disease (or of iron deficiency) due to underlying chronic medical issues, multifactorial --> Anemia workup has been ordered --> No evidence of hemolysis is noted, peripheral smear has been reviewed. --> Hgb goal >7. Transfuse prn. --> Epogen or iron at this time is not particularly indicated --> Medications have been reviewed # Thrombocytopenia - potential causes multifactorial, evaluate liver and viral etiologies to begin, also could be related to underlying medications patient has received. -->Hep panel and HIV ordered -->US abd to evaluate for cirrhosis and hsm ordered --> Peripheral smear ordered to evaluate for blasts /schistocytes --> abx and other meds have been reviewed --> ok for ppx if plt >50k w/ either heparin or lovenox --->Transfuse if Plt < 20k and fever, or if Plt < 10k without fever # Sinus tachycardia, due to hypoxemia/breathing treatment. --> Most likely noncardiac chest pain. # History of chronic obstructive pulmonary disease. # Obesity hypoventilation syndrome. # History of seizure disorder. # Hypertension heart disease. # Hyperlipidemia. # Hypokalemic, K supplement given, am labs. The timing of this note does not necessarily reflect the time of the patient was seen Greatly appreciate consultation! Jay Wilson MD Aug 30, 2018 21:53
--- NOTE | 2018-08-30 22:08 | Cardiology Progress Note ---
Assessment/Plan Assessment/Plan 1. Sinus tachycardia, due to hypoxemia/breathing treatment. CXR aon the day of admission was negative except COPD changes. 2. Most likely noncardiac chest pain. Electrocardiography shows sinus rhythm with premature ventricular complexes with no acute ST and T-wave abnormalities. AMI is ruled out by negative CE. Beta-natriuretic peptide is also within normal limits. Echo reveals normal LV systolic and diastolic function with LVEF at 55% and normal pulmonary artery pressure. 3. History of chronic obstructive pulmonary disease. 4. Obesity hypoventilation syndrome. 5. History of seizure disorder. 6. Hypertension heart disease. 7. Hyperlipidemia. Subjective Subjective Clinically the same. No cardiac events reported. Objective Last 24 Hour Vital Signs Date Time Temp Pulse Resp B/P (MAP) Pulse Ox O2 Delivery O2 Flow Rate FiO2 08/30/18 20:22 Nasal Cannula 3.0 32 08/30/18 20:22 94 Nasal Cannula 3.0 32 08/30/18 20:21 105 20 95 Nasal Cannula 2.0 28 08/30/18 20:21 104 20 Nasal Cannula 3.0 32 08/30/18 20:08 105 20 94 Nasal Cannula 3.0 32 08/30/18 19:22 98.2 08/30/18 16:00 98.2 109 18 104/71 (82) 94 106 08/30/18 12:20 98.1 08/30/18 12:00 98.1 109 16 136/78 (97) 95 109 08/30/18 09:00 Room Air 08/30/18 08:32 97 Nasal Cannula 3.0 32 08/30/18 08:32 97 18 Nasal Cannula 3.0 32 08/30/18 08:32 Nasal Cannula 3.0 32 08/30/18 08:00 97.0 100 16 145/99 (114) 97 100 08/30/18 04:00 97.7 95 20 134/81 (98) 97 105 08/30/18 03:39 98 20 97 Nasal Cannula 2.0 28 08/30/18 03:31 100 20 18 Nasal Cannula 3.0 32 08/30/18 00:00 97.8 105 20 144/92 (109) 95 105 Intake and Output 08/29/18 08/30/18 19:00 07:00 Intake Total 800 ml 741 ml Output Total 800 ml Balance 800 ml -59 ml Intake Oral 800 ml 480 ml IV Total 261 ml Output Urine Total 800 ml # Voids 6 2D Echo: LVEF 65%, Mild LVH, Moderate SELAM, RVSP 25 mmHg Laboratory Tests Test 08/30/18 04:00 White Blood Count 5.9 K/UL (4.8-10.8) Red Blood Count 3.95 M/UL (4.70-6.10) L Hemoglobin 12.9 G/DL (14.2-18.0) L Hematocrit 38.0 % (42.0-52.0) L Mean Corpuscular Volume 96 FL (80-99) Mean Corpuscular Hemoglobin 32.7 PG (27.0-31.0) H Mean Corpuscular Hemoglobin Concent 34.0 G/DL (32.0-36.0) Red Cell Distribution Width 12.3 % (11.6-14.8) Platelet Count 158 K/UL (150-450) # Mean Platelet Volume 5.3 FL (6.5-10.1) L Neutrophils (%) (Auto) 63.3 % (45.0-75.0) Lymphocytes (%) (Auto) 26.4 % (20.0-45.0) Monocytes (%) (Auto) 8.2 % (1.0-10.0) Eosinophils (%) (Auto) 1.5 % (0.0-3.0) Basophils (%) (Auto) 0.6 % (0.0-2.0) Sodium Level 140 MMOL/L (136-145) Potassium Level 3.8 MMOL/L (3.5-5.1) # Chloride Level 103 MMOL/L (98-107) Carbon Dioxide Level 34 MMOL/L (21-32) H Anion Gap 3 mmol/L (5-15) L Blood Urea Nitrogen 21 mg/dL (7-18) H Creatinine 1.1 MG/DL (0.55-1.30) Estimat Glomerular Filtration Rate > 60 mL/min (>60) Glucose Level 117 MG/DL (74-106) H Calcium Level 8.4 MG/DL (8.5-10.1) #L Magnesium Level 1.8 MG/DL (1.8-2.4) Objective HEENT: Atraumatic and normocephalic. Anicteric. Pupils are equal, round, and reactive to light and accommodation. Extraocular muscles intact. NECK: JVP less than 5 cm. No carotid bruit. Carotid upstrokes 2+ bilaterally. CVS: Normal S1, S2. Regular rate and rhythm. Tachycardiac. No murmurs, gallops , or rubs. LUNGS: Diminished breath sounds bilaterally. ABDOMEN: Large pannus. Cannot appreciate hepatosplenomegaly. Positive bowel sounds. EXTREMITIES: There is no evidence of edema, clubbing, or cyanosis. Carlos Martins MD Aug 30, 2018 22:08
[2018-08-31] VITALS: BP 144/73
[2018-08-31] MEDS: Vancomycin 1.5gm/D5W Premix 250 ML IVPB SCH ×3 (00:45→15:49)
[2018-08-31 04:00] VITALS: BP 136/78
[2018-08-31] MEDS: ceFAZolin 2gm/50ml Premix 50 ML IV SCH ×3 (05:20→21:03)
[2018-08-31 06:20] LABS: BASOPHILS % (AUTO) 0.5 % (0.0-2.0); EOSINOPHILS % (AUTO) 1.5 % (0.0-3.0); HEMATOCRIT 37.5 % (42.0-52.0); HEMOGLOBIN 12.5 G/DL (14.2-18.0); MEAN CORPUSCULAR VOLUME 98 FL (80-99); MONOCYTES % (AUTO) 9.8 % (1.0-10.0); NEUTROPHILS % (AUTO) 71.2 % (45.0-75.0); PLATELET COUNT 160 K/UL (150-450); RED BLOOD COUNT 3.84 M/UL (4.70-6.10); RED CELL DISTRIBUTION WIDTH 12.5 % (11.6-14.8); WHITE BLOOD COUNT 6.4 K/UL (4.8-10.8)
[2018-08-31 06:37] LABS: ANION GAP 6 mmol/L (5-15); BLOOD UREA NITROGEN 20 mg/dL (7-18); CALCIUM 9.1 MG/DL (8.5-10.1); CARBON DIOXIDE 35 MMOL/L (21-32); CHLORIDE 102 MMOL/L (98-107); CREATININE 1.1 MG/DL (0.55-1.30); SODIUM 142 MMOL/L (136-145)
--- NOTE | 2018-08-31 07:42 | NUR ---
HAND-OFF: Report given to Luis HINOJOSA.
--- NOTE | 2018-08-31 07:51 | NUR ---
NURSE NOTES: Received patient from MICAELA Stein.Patient awake, sitting in bed, not in respiratory distress, in room air.Has VICTOR HUGO PICC line,double lumen, intact. Call light is within reach, will continue to monitor patient.
--- NOTE | 2018-08-31 07:53 | NUR ---
NURSE NOTES: Received patient from Sarita HINOJOSA, patient is resting in bed, no distress noted, bed is locked and in lowest position, call light within reach, will continue to monitor with Yesenia HINOJOSA.
[2018-08-31] MEDS: Albuterol/Ipratropium 3ml neb HHN PRN ×3 (07:59→22:12)
[2018-08-31 08:00] VITALS: BP 149/97
--- NOTE | 2018-08-31 08:46 | General Progress Note ---
Assessment/Plan Assessment/Plan (1) Lumbar DDD (2) Lumbar Spondylosis (3) Lumbar Radiculopathy (4) Morbid Obesity (5) Right knee pain (6) Right knee OA h/o ORIF Patient will be continued on Robaxin, Morphine ER and Dilaudid D/w Dr. Magaña and he concurred. Subjective Date patient seen: Aug 31, 2018 Time patient seen: 07:00 - am Allergies: Coded Allergies: ASPIRIN (Verified Allergy, Unknown, 07/14/18) KETOROLAC (Verified Allergy, Unknown, 07/14/18) PENICILLINS (Verified Allergy, Unknown, 07/14/18) Subjective REVIEW OF SYSTEMS: Denies rash, fever, chills, sweating, dizziness, drowsiness, blurred vision, sore throat, change in weight. No nausea, vomiting, diarrhea, or blood in the stool or urine. No bowel or bladder incontinence. No dysuria. He is complaining of low back pain and right lower extremity pain. SUBJECTIVE: Patient showing no signs of pain or distress. Pain has been unchanged and tolerated on the Morphine ER and Dilaudid. Objective Last 24 Hour Vital Signs Date Time Temp Pulse Resp B/P (MAP) Pulse Ox O2 Delivery O2 Flow Rate FiO2 08/31/18 08:02 97 20 95 Nasal Cannula 2.0 28 08/31/18 08:00 97.7 99 20 149/97 (114) 93 08/31/18 07:55 97 20 93 Nasal Cannula 3.0 32 08/31/18 07:54 Nasal Cannula 3.0 32 08/31/18 07:54 93 Nasal Cannula 3.0 32 08/31/18 07:54 97 20 Nasal Cannula 3.0 32 08/31/18 04:00 98.8 101 20 136/78 (97) 96 101 08/31/18 00:00 99.0 105 19 144/73 (96) 97 105 08/30/18 21:00 Room Air 08/30/18 20:22 Nasal Cannula 3.0 32 08/30/18 20:22 94 Nasal Cannula 3.0 32 08/30/18 20:21 105 20 95 Nasal Cannula 2.0 28 08/30/18 20:21 104 20 Nasal Cannula 3.0 32 08/30/18 20:08 105 20 94 Nasal Cannula 3.0 32 08/30/18 20:00 98.6 112 20 107/93 (98) 95 112 08/30/18 19:22 98.2 08/30/18 16:00 98.2 109 18 104/71 (82) 94 106 08/30/18 12:20 98.1 08/30/18 12:00 98.1 109 16 136/78 (97) 95 109 08/30/18 09:00 Room Air Intake and Output 08/30/18 08/31/18 19:00 07:00 Intake Total 1109 ml 1031 ml Output Total 1420 ml 2425 ml Balance -311 ml -1394 ml Intake Oral 580 ml 500 ml IV Total 529 ml 531 ml Output Urine Total 1420 ml 2425 ml Laboratory Tests 08/31/18 04:45: White Blood Count 6.4, Red Blood Count 3.84L, Hemoglobin 12.5L, Hematocrit 37.5L , Mean Corpuscular Volume 98, Mean Corpuscular Hemoglobin 32.6H, Mean Corpuscular Hemoglobin Concent 33.4, Red Cell Distribution Width 12.5, Platelet Count 160, Mean Platelet Volume 5.1L, Neutrophils (%) (Auto) 71.2, Lymphocytes ( %) (Auto) 17.0L, Monocytes (%) (Auto) 9.8, Eosinophils (%) (Auto) 1.5, Basophils (%) (Auto) 0.5, Sodium Level 142, Potassium Level 3.0L, Chloride Level 102, Carbon Dioxide Level 35H, Anion Gap 6, Blood Urea Nitrogen 20H, Creatinine 1.1, Estimat Glomerular Filtration Rate > 60, Glucose Level 112H, Calcium Level 9.1 Height (Feet): 5 Height (Inches): 11.00 Weight (Pounds): 493 Objective GENERAL: Alert, awake, and oriented x3. LUNGS: Decreased breath sounds bilaterally. HEART: S1 and S2, regular. ABDOMEN: Obese, tender ness to palpation with skin changes noted. EXTREMITIES: No cyanosis. No clubbing. No edema. NEURO: No Focal deficits. Eliezer Nicole Aug 31, 2018 08:46
[2018-08-31] MEDS: Theophylline ER 100mg ORAL SCH (08:48)
[2018-08-31] MEDS: MS Contin 15mg tab ORAL SCH ×2 (08:58→21:02)
[2018-08-31 12:00] VITALS: BP 133/89
--- NOTE | 2018-08-31 12:14 | Infectious Diseases Prog Note ---
Assessment/Plan Assessment/Plan 52 yo male with PMHx of Seizures, COPD and CHF who was sent to the ED from his assisted on 08/22/18 for SOB. Posterior neck mass \ Most likely inflamed lipoma per US read Unable to get MRI or CT so will continue abx as this will treat any cellulitic component of his inflamed pannus as well. No fever No leukocytosis 08/26/18 US neck shows possible lipoma Facial sores. Likely some sort of staph infection Sores seem to be healing. Pannus - Possible cellulitis developing Erythema of skin - Painful PLAN -Continue Vancomyin #6/7 Add Cefazolin for more strep coverage - Monitor CBC and Temps We will continue to follow the patient during this hospitalization. Subjective Allergies: Coded Allergies: ASPIRIN (Verified Allergy, Unknown, 07/14/18) KETOROLAC (Verified Allergy, Unknown, 07/14/18) PENICILLINS (Verified Allergy, Unknown, 07/14/18) Subjective Afebrile No leukocytosis Objective Vital Signs Last 24 Hour Vital Signs Date Time Temp Pulse Resp B/P (MAP) Pulse Ox O2 Delivery O2 Flow Rate FiO2 08/31/18 10:18 97.7 08/31/18 09:28 97.7 08/31/18 09:00 Room Air 08/31/18 08:02 97 20 95 Nasal Cannula 2.0 28 08/31/18 08:00 97.7 99 20 149/97 (114) 93 08/31/18 07:55 97 20 93 Nasal Cannula 3.0 32 08/31/18 07:54 Nasal Cannula 3.0 32 08/31/18 07:54 93 Nasal Cannula 3.0 32 08/31/18 07:54 97 20 Nasal Cannula 3.0 32 08/31/18 04:00 98.8 101 20 136/78 (97) 96 101 08/31/18 00:00 99.0 105 19 144/73 (96) 97 105 08/30/18 21:00 Room Air 08/30/18 20:22 Nasal Cannula 3.0 32 08/30/18 20:22 94 Nasal Cannula 3.0 32 08/30/18 20:21 105 20 95 Nasal Cannula 2.0 28 08/30/18 20:21 104 20 Nasal Cannula 3.0 32 08/30/18 20:08 105 20 94 Nasal Cannula 3.0 32 08/30/18 20:00 98.6 112 20 107/93 (98) 95 112 08/30/18 16:00 98.2 109 18 104/71 (82) 94 106 Height (Feet): 5 Height (Inches): 11.00 Weight (Pounds): 493 Objective Gen: NAD HEENT: NCAT, MMM, EOMl LUNGS: CTAB, No W CARDS: RRR, S1, S2, No M/R/G, ABD: Soft, Obese, Enlarged pannus with mild erythema and TTP. No warmth. + BS Ext: Severe edema of feet, Pulses 2+ B/L (DP, Rad): NEURO: A/O x 4, Strength and Sensation Grossly intact SKIN: Small scabbed sores on for head and arms (healing) posterior left neck with 3-4cm area of pain with swelling. Erythema and warmth resolved Laboratory Tests Test 08/31/18 04:45 White Blood Count 6.4 K/UL (4.8-10.8) Red Blood Count 3.84 M/UL (4.70-6.10) L Hemoglobin 12.5 G/DL (14.2-18.0) L Hematocrit 37.5 % (42.0-52.0) L Mean Corpuscular Volume 98 FL (80-99) Mean Corpuscular Hemoglobin 32.6 PG (27.0-31.0) H Mean Corpuscular Hemoglobin Concent 33.4 G/DL (32.0-36.0) Red Cell Distribution Width 12.5 % (11.6-14.8) Platelet Count 160 K/UL (150-450) Mean Platelet Volume 5.1 FL (6.5-10.1) L Neutrophils (%) (Auto) 71.2 % (45.0-75.0) Lymphocytes (%) (Auto) 17.0 % (20.0-45.0) L Monocytes (%) (Auto) 9.8 % (1.0-10.0) Eosinophils (%) (Auto) 1.5 % (0.0-3.0) Basophils (%) (Auto) 0.5 % (0.0-2.0) Sodium Level 142 MMOL/L (136-145) Potassium Level 3.0 MMOL/L (3.5-5.1) L Chloride Level 102 MMOL/L (98-107) Carbon Dioxide Level 35 MMOL/L (21-32) H Anion Gap 6 mmol/L (5-15) Blood Urea Nitrogen 20 mg/dL (7-18) H Creatinine 1.1 MG/DL (0.55-1.30) Estimat Glomerular Filtration Rate > 60 mL/min (>60) Glucose Level 112 MG/DL (74-106) H Calcium Level 9.1 MG/DL (8.5-10.1) Current Medications Medications (Trade) Dose Ordered Sig/Luis Route PRN Reason Start Time Stop Time Status Last Admin Dose Admin Acetaminophen (Tylenol) 650 mg Q4H PRN ORAL FEVER 08/27/18 15:30 09/21/18 15:29 Acetaminophen/ Hydrocodone Bitart (Goodman 10/325) 1 tab Q4H PRN ORAL pain 3-6 08/27/18 16:24 09/03/18 16:23 Albuterol/ Ipratropium (Albuterol/ Ipratropium) 3 ml Q4H PRN HHN Shortness of Breath 08/27/18 18:45 09/01/18 18:44 08/31/18 07:59 Atorvastatin Calcium (Lipitor) 80 mg BEDTIME ORAL 08/27/18 21:00 09/21/18 20:59 08/30/18 20:36 Cefazolin Sodium 50 ml @ 100 mls/hr Q8HR IV 08/31/18 06:00 09/07/18 05:59 08/31/18 05:20 Chlorhexidine Gluconate (Ruby-Hex 2%) 1 applic DAILY@2000 TOPIC 08/27/18 20:00 09/24/18 19:59 08/30/18 20:36 Clopidogrel Bisulfate (Plavix) 75 mg DAILY ORAL 08/28/18 09:00 09/22/18 08:59 08/31/18 08:48 Enalaprilat (Vasotec) 2.5 mg Q6H PRN IV sbp more than 160 08/27/18 15:30 09/21/18 15:29 Furosemide 100 mg/ Dextrose 110 ml @ 11 mls/hr Q10H IV 08/27/18 16:00 09/24/18 15:59 08/31/18 09:45 Gabapentin (Neurontin) 600 mg THREE TIMES A DAY ORAL 08/27/18 18:00 09/22/18 08:59 08/31/18 12:08 Hydromorphone HCl (Dilaudid) 3 mg Q3H PRN IVP Severe Pain (Pain Scale 7-10) 08/27/18 16:02 09/02/18 16:01 08/31/18 09:48 Levetiracetam (Keppra) 500 mg Q12HR ORAL 08/30/18 09:00 09/29/18 08:59 08/31/18 08:48 Methocarbamol (Robaxin) 500 mg Q8H PRN ORAL muscle spasm 08/30/18 11:00 09/29/18 10:59 Morphine Sulfate (MS Contin) 15 mg Q12HR ORAL 08/30/18 10:45 09/06/18 10:44 08/31/18 08:58 Nitroglycerin (Ntg) 0.4 mg Q5M PRN SL Prn Chest Pain 08/27/18 15:30 09/21/18 15:29 Ondansetron HCl (Zofran) 4 mg Q6H PRN IVP Nausea & Vomiting 08/27/18 15:30 09/21/18 15:29 Polyethylene Glycol (Miralax) 17 gm DAILYPRN PRN ORAL Constipation 08/27/18 15:30 09/21/18 15:29 Potassium Chloride (K-Dur) 20 meq Q6HR ORAL 08/30/18 12:00 09/29/18 11:59 08/31/18 12:09 Theophylline (George-Dur) 100 mg DAILY ORAL 08/28/18 09:00 09/22/18 08:59 08/31/18 08:48 Trazodone HCl (Desyrel) 100 mg BEDTIME ORAL 08/27/18 21:00 09/23/18 20:59 08/30/18 20:36 Vancomycin HCl (Vanco rx to dose) 1 ea DAILY PRN MISC Per rx protocol 08/27/18 16:00 09/26/18 15:59 Vancomycin HCl/ Dextrose 250 ml @ 125 mls/hr Q8H IVPB 08/27/18 16:00 09/01/18 00:00 08/31/18 08:47 Elliot Chauhan MD Aug 31, 2018 12:14
--- NOTE | 2018-08-31 12:47 | Surgery Progress Note ---
Surgery Progress Note Subjective Additional Comments no acute events. still with pain and difficulty walking Objective Last 24 Hour Vital Signs Date Time Temp Pulse Resp B/P (MAP) Pulse Ox O2 Delivery O2 Flow Rate FiO2 08/31/18 12:00 98.2 104 20 133/89 (104) 95 08/31/18 10:18 97.7 08/31/18 09:28 97.7 08/31/18 09:00 Room Air 08/31/18 08:02 97 20 95 Nasal Cannula 2.0 28 08/31/18 08:00 97.7 99 20 149/97 (114) 93 08/31/18 07:55 97 20 93 Nasal Cannula 3.0 32 08/31/18 07:54 Nasal Cannula 3.0 32 08/31/18 07:54 93 Nasal Cannula 3.0 32 08/31/18 07:54 97 20 Nasal Cannula 3.0 32 08/31/18 04:00 98.8 101 20 136/78 (97) 96 101 08/31/18 00:00 99.0 105 19 144/73 (96) 97 105 08/30/18 21:00 Room Air 08/30/18 20:22 Nasal Cannula 3.0 32 08/30/18 20:22 94 Nasal Cannula 3.0 32 08/30/18 20:21 105 20 95 Nasal Cannula 2.0 28 08/30/18 20:21 104 20 Nasal Cannula 3.0 32 08/30/18 20:08 105 20 94 Nasal Cannula 3.0 32 08/30/18 20:00 98.6 112 20 107/93 (98) 95 112 08/30/18 16:00 98.2 109 18 104/71 (82) 94 106 I&O Intake and Output 08/30/18 08/31/18 19:00 07:00 Intake Total 1109 ml 1031 ml Output Total 1420 ml 2425 ml Balance -311 ml -1394 ml Intake Oral 580 ml 500 ml IV Total 529 ml 531 ml Output Urine Total 1420 ml 2425 ml Dressing: other Wound: other Drains: other Cardiovascular: RSR Respiratory: clear Abdomen: soft, tenderness, other Extremities: other Laboratory Tests Test 08/31/18 04:45 White Blood Count 6.4 K/UL (4.8-10.8) Red Blood Count 3.84 M/UL (4.70-6.10) L Hemoglobin 12.5 G/DL (14.2-18.0) L Hematocrit 37.5 % (42.0-52.0) L Mean Corpuscular Volume 98 FL (80-99) Mean Corpuscular Hemoglobin 32.6 PG (27.0-31.0) H Mean Corpuscular Hemoglobin Concent 33.4 G/DL (32.0-36.0) Red Cell Distribution Width 12.5 % (11.6-14.8) Platelet Count 160 K/UL (150-450) Mean Platelet Volume 5.1 FL (6.5-10.1) L Neutrophils (%) (Auto) 71.2 % (45.0-75.0) Lymphocytes (%) (Auto) 17.0 % (20.0-45.0) L Monocytes (%) (Auto) 9.8 % (1.0-10.0) Eosinophils (%) (Auto) 1.5 % (0.0-3.0) Basophils (%) (Auto) 0.5 % (0.0-2.0) Sodium Level 142 MMOL/L (136-145) Potassium Level 3.0 MMOL/L (3.5-5.1) L Chloride Level 102 MMOL/L (98-107) Carbon Dioxide Level 35 MMOL/L (21-32) H Anion Gap 6 mmol/L (5-15) Blood Urea Nitrogen 20 mg/dL (7-18) H Creatinine 1.1 MG/DL (0.55-1.30) Estimat Glomerular Filtration Rate > 60 mL/min (>60) Glucose Level 112 MG/DL (74-106) H Calcium Level 9.1 MG/DL (8.5-10.1) Plan Problems: (1) Abdominal wall cellulitis Assessment & Plan: very fluid overloaded developing cellulitis of pannus and lower extremities. no abscess. pannus much larger than prior with erythema and edema and induration lower extremities with severe edema and blistering and cellulitis Lasix IV Abx keep legs elevated unfortunately no surgical intervention at this time. will need to follow closely for abscess development thank you (2) Abdominal pannus Gt Fernandez Aug 31, 2018 12:47
--- NOTE | 2018-08-31 13:21 | General Progress Note ---
Assessment/Plan Problem List: (1) Peripheral edema ICD Codes: R60.9 - Edema, unspecified SNOMED: 004477750 (2) COPD (chronic obstructive pulmonary disease) ICD Codes: J44.9 - Chronic obstructive pulmonary disease, unspecified SNOMED: 39262861 Qualifiers: Qualified Codes: J44.9 - Chronic obstructive pulmonary disease, unspecified (3) Leg pain ICD Codes: M79.606 - Pain in leg, unspecified SNOMED: 04934324 (4) Morbid obesity ICD Codes: E66.01 - Morbid (severe) obesity due to excess calories SNOMED: 213298579 (5) Seizures ICD Codes: R56.9 - Unspecified convulsions SNOMED: 59673761 (6) Right heart failure ICD Codes: I50.810 - Right heart failure, unspecified SNOMED: 510948697 (7) ACS (acute coronary syndrome) ICD Codes: I24.9 - Acute ischemic heart disease, unspecified SNOMED: 546103145 (8) Abdominal pannus ICD Codes: E65 - Localized adiposity SNOMED: 3283384607103 (9) Abdominal wall cellulitis ICD Codes: L03.311 - Cellulitis of abdominal wall SNOMED: 07920799 Status: unchanged Assessment/Plan o2 pulm tx abx prn seizure pain control pt diet cbc bmp am dc plan Subjective Constitutional: Reports: weakness Allergies: Coded Allergies: ASPIRIN (Verified Allergy, Unknown, 07/14/18) KETOROLAC (Verified Allergy, Unknown, 07/14/18) PENICILLINS (Verified Allergy, Unknown, 07/14/18) All Systems: reviewed and negative except above Subjective sitting sob Objective Last 24 Hour Vital Signs Date Time Temp Pulse Resp B/P (MAP) Pulse Ox O2 Delivery O2 Flow Rate FiO2 08/31/18 12:00 98.2 104 20 133/89 (104) 95 08/31/18 10:18 97.7 08/31/18 09:28 97.7 08/31/18 09:00 Room Air 08/31/18 08:02 97 20 95 Nasal Cannula 2.0 28 08/31/18 08:00 97.7 99 20 149/97 (114) 93 08/31/18 07:55 97 20 93 Nasal Cannula 3.0 32 08/31/18 07:54 Nasal Cannula 3.0 32 08/31/18 07:54 93 Nasal Cannula 3.0 32 08/31/18 07:54 97 20 Nasal Cannula 3.0 32 08/31/18 04:00 98.8 101 20 136/78 (97) 96 101 08/31/18 00:00 99.0 105 19 144/73 (96) 97 105 08/30/18 21:00 Room Air 08/30/18 20:22 Nasal Cannula 3.0 32 08/30/18 20:22 94 Nasal Cannula 3.0 32 08/30/18 20:21 105 20 95 Nasal Cannula 2.0 28 08/30/18 20:21 104 20 Nasal Cannula 3.0 32 08/30/18 20:08 105 20 94 Nasal Cannula 3.0 32 08/30/18 20:00 98.6 112 20 107/93 (98) 95 112 08/30/18 16:00 98.2 109 18 104/71 (82) 94 106 Intake and Output 08/30/18 08/31/18 18:59 06:59 Intake Total 1120 ml 1031 ml Output Total 1420 ml 2425 ml Balance -300 ml -1394 ml Intake Oral 580 ml 500 ml IV Total 540 ml 531 ml Output Urine Total 1420 ml 2425 ml Laboratory Tests 08/31/18 04:45: White Blood Count 6.4, Red Blood Count 3.84L, Hemoglobin 12.5L, Hematocrit 37.5L , Mean Corpuscular Volume 98, Mean Corpuscular Hemoglobin 32.6H, Mean Corpuscular Hemoglobin Concent 33.4, Red Cell Distribution Width 12.5, Platelet Count 160, Mean Platelet Volume 5.1L, Neutrophils (%) (Auto) 71.2, Lymphocytes ( %) (Auto) 17.0L, Monocytes (%) (Auto) 9.8, Eosinophils (%) (Auto) 1.5, Basophils (%) (Auto) 0.5, Sodium Level 142, Potassium Level 3.0L, Chloride Level 102, Carbon Dioxide Level 35H, Anion Gap 6, Blood Urea Nitrogen 20H, Creatinine 1.1, Estimat Glomerular Filtration Rate > 60, Glucose Level 112H, Calcium Level 9.1 Height (Feet): 5 Height (Inches): 11.00 Weight (Pounds): 493 General Appearance: alert EENT: normal ENT inspection Neck: normal alignment Cardiovascular: normal peripheral pulses, normal rate, regular rhythm Respiratory/Chest: chest wall non-tender, decreased breath sounds Abdomen: normal bowel sounds, non tender, soft, distended Extremities: normal inspection Edema: 2+ Arm (L), 2+ Arm (R), 2+ Leg (L), 2+ Leg (R), 2+ Pedal (L), 2+ Pedal ( R), 2+ Generalized Edema: mild edema Neurologic: responsive, motor weakness Skin: normal pigmentation, warm/dry Ernesto Nicole DO Aug 31, 2018 13:21
--- NOTE | 2018-08-31 15:04 | Pulmonology Progress Note ---
Assessment/Plan Problems: (1) ACS (acute coronary syndrome) (2) COPD (chronic obstructive pulmonary disease) (3) Right heart failure (4) Abdominal pannus (5) ADALBERTO (obstructive sleep apnea) (6) Seizures (7) Morbid obesity Assessment/Plan wants more dilaudid still diuresing a lot bipap prn at night cardiology f/u serial ekg, troponin continue lasix drip increase dilaudid ot q3 hours watch bun/creatinine symptomatic treatment dvt prophylaxis titrate fio2 to saturation of 92% Subjective ROS Limited/Unobtainable: No Constitutional: Reports: no symptoms Respiratory: Reports: no symptoms Allergies: Coded Allergies: ASPIRIN (Verified Allergy, Unknown, 07/14/18) KETOROLAC (Verified Allergy, Unknown, 07/14/18) PENICILLINS (Verified Allergy, Unknown, 07/14/18) Objective Last 24 Hour Vital Signs Date Time Temp Pulse Resp B/P (MAP) Pulse Ox O2 Delivery O2 Flow Rate FiO2 08/31/18 14:07 97 20 98 Nasal Cannula 2.0 28 08/31/18 14:05 99 20 93 Nasal Cannula 3.0 32 08/31/18 13:18 98.2 08/31/18 12:00 98.2 104 20 133/89 (104) 95 08/31/18 09:28 97.7 08/31/18 09:00 Room Air 08/31/18 08:02 97 20 95 Nasal Cannula 2.0 28 08/31/18 08:00 97.7 99 20 149/97 (114) 93 08/31/18 07:55 97 20 93 Nasal Cannula 3.0 32 08/31/18 07:54 Nasal Cannula 3.0 32 08/31/18 07:54 93 Nasal Cannula 3.0 32 08/31/18 07:54 97 20 Nasal Cannula 3.0 32 08/31/18 04:00 98.8 101 20 136/78 (97) 96 101 08/31/18 00:00 99.0 105 19 144/73 (96) 97 105 08/30/18 21:00 Room Air 08/30/18 20:22 Nasal Cannula 3.0 32 08/30/18 20:22 94 Nasal Cannula 3.0 32 08/30/18 20:21 105 20 95 Nasal Cannula 2.0 28 08/30/18 20:21 104 20 Nasal Cannula 3.0 32 08/30/18 20:08 105 20 94 Nasal Cannula 3.0 32 08/30/18 20:00 98.6 112 20 107/93 (98) 95 112 08/30/18 16:00 98.2 109 18 104/71 (82) 94 106 Intake and Output 08/30/18 08/31/18 18:59 06:59 Intake Total 1120 ml 1031 ml Output Total 1420 ml 2425 ml Balance -300 ml -1394 ml Intake Oral 580 ml 500 ml IV Total 540 ml 531 ml Output Urine Total 1420 ml 2425 ml General Appearance: WD/WN HEENT: normocephalic, atraumatic Respiratory/Chest: chest wall non-tender, lungs clear Cardiovascular: normal peripheral pulses, regular rhythm Abdomen: normal bowel sounds, soft, non tender Genitourinary: normal external genitalia Extremities: no clubbing Skin: no rash Laboratory Tests 08/31/18 04:45: White Blood Count 6.4, Red Blood Count 3.84L, Hemoglobin 12.5L, Hematocrit 37.5L , Mean Corpuscular Volume 98, Mean Corpuscular Hemoglobin 32.6H, Mean Corpuscular Hemoglobin Concent 33.4, Red Cell Distribution Width 12.5, Platelet Count 160, Mean Platelet Volume 5.1L, Neutrophils (%) (Auto) 71.2, Lymphocytes ( %) (Auto) 17.0L, Monocytes (%) (Auto) 9.8, Eosinophils (%) (Auto) 1.5, Basophils (%) (Auto) 0.5, Sodium Level 142, Potassium Level 3.0L, Chloride Level 102, Carbon Dioxide Level 35H, Anion Gap 6, Blood Urea Nitrogen 20H, Creatinine 1.1, Estimat Glomerular Filtration Rate > 60, Glucose Level 112H, Calcium Level 9.1 Current Medications Medications (Trade) Dose Ordered Sig/Luis Route PRN Reason Start Time Stop Time Status Last Admin Dose Admin Acetaminophen (Tylenol) 650 mg Q4H PRN ORAL FEVER 08/27/18 15:30 09/21/18 15:29 Acetaminophen/ Hydrocodone Bitart ([place] 10/325) 1 tab Q4H PRN ORAL pain 3-6 08/27/18 16:24 09/03/18 16:23 Albuterol/ Ipratropium (Albuterol/ Ipratropium) 3 ml Q4H PRN HHN Shortness of Breath 08/27/18 18:45 09/01/18 18:44 08/31/18 14:06 Atorvastatin Calcium (Lipitor) 80 mg BEDTIME ORAL 08/27/18 21:00 09/21/18 20:59 08/30/18 20:36 Cefazolin Sodium 50 ml @ 100 mls/hr Q8HR IV 08/31/18 06:00 09/07/18 05:59 08/31/18 14:25 Chlorhexidine Gluconate (Ruby-Hex 2%) 1 applic DAILY@2000 TOPIC 08/27/18 20:00 09/24/18 19:59 08/30/18 20:36 Clindamycin HCl (Cleocin) 450 mg EVERY 6 HOURS ORAL 08/31/18 18:00 09/07/18 17:59 Clopidogrel Bisulfate (Plavix) 75 mg DAILY ORAL 08/28/18 09:00 09/22/18 08:59 08/31/18 08:48 Enalaprilat (Vasotec) 2.5 mg Q6H PRN IV sbp more than 160 08/27/18 15:30 09/21/18 15:29 Furosemide 100 mg/ Dextrose 110 ml @ 11 mls/hr Q10H IV 08/27/18 16:00 09/24/18 15:59 08/31/18 09:45 Gabapentin (Neurontin) 600 mg THREE TIMES A DAY ORAL 08/27/18 18:00 09/22/18 08:59 08/31/18 12:08 Hydromorphone HCl (Dilaudid) 3 mg Q3H PRN IVP Severe Pain (Pain Scale 7-10) 08/27/18 16:02 09/02/18 16:01 08/31/18 12:48 Levetiracetam (Keppra) 500 mg Q12HR ORAL 08/30/18 09:00 09/29/18 08:59 08/31/18 08:48 Methocarbamol (Robaxin) 500 mg Q8H PRN ORAL muscle spasm 08/30/18 11:00 09/29/18 10:59 Morphine Sulfate (MS Contin) 15 mg Q12HR ORAL 08/30/18 10:45 09/06/18 10:44 08/31/18 08:58 Nitroglycerin (Ntg) 0.4 mg Q5M PRN SL Prn Chest Pain 08/27/18 15:30 09/21/18 15:29 Ondansetron HCl (Zofran) 4 mg Q6H PRN IVP Nausea & Vomiting 08/27/18 15:30 09/21/18 15:29 Polyethylene Glycol (Miralax) 17 gm DAILYPRN PRN ORAL Constipation 08/27/18 15:30 09/21/18 15:29 Potassium Chloride (K-Dur) 20 meq Q6HR ORAL 08/30/18 12:00 09/29/18 11:59 08/31/18 12:09 Theophylline (George-Dur) 100 mg DAILY ORAL 08/28/18 09:00 09/22/18 08:59 08/31/18 08:48 Trazodone HCl (Desyrel) 100 mg BEDTIME ORAL 08/27/18 21:00 09/23/18 20:59 08/30/18 20:36 Vancomycin HCl (Vanco rx to dose) 1 ea DAILY PRN MISC Per rx protocol 08/27/18 16:00 09/26/18 15:59 Vancomycin HCl/ Dextrose 250 ml @ 125 mls/hr Q8H IVPB 08/27/18 16:00 09/01/18 00:00 08/31/18 08:47 Bill Dixon MD Aug 31, 2018 15:04
[2018-08-31 16:00] VITALS: BP 149/89
--- NOTE | 2018-08-31 16:30 | Consultation ---
DATE OF CONSULTATION: 08/31/2017 CONSULTING PHYSICIAN: Laney Mcghee M.D. HISTORY OF PRESENT ILLNESS: He is a 52-year-old male patient with COPD. He continues to have confusion, disorganized thought process. pulmonary disease, but he also has high levels of anxiety. That is why, attending has requested daily psychiatric consultation. MENTAL STATUS EXAMINATION: A 52-year-old male. Appearance is disheveled. Attitude, irritable and agitated. Affect, guarded and restricted. Intellect poor. Mood depressed and anxious. Motor activity, psychomotor agitation. Attention span is poor. Orientation x2. Speech is pressured. Thought process, disorganized, logical. Thought content, auditory hallucinations and paranoid delusions. Insight and judgment is poor. DIAGNOSIS: Paranoid schizophrenia with acute exacerbation. PLAN: Treat the patient with medication regimen consisting of Neurontin and trazodone. Provided with 20 minutes of cognitive behavioral therapy to help him identify automatic negative thoughts and help him convert those negative thoughts to more positive thoughts to reduce depression, anxiety, and suicidality. Chart reviewed. Discussed with staff. Cognitive behavioral therapy to help him have more adaptive behavior pattern. Laney Mcghee M.D. DR: GEENA JOB#: [id number] CC:
[2018-08-31] MEDS ORDERED: Tubing Ominiflow Primary IV ONE (16:33)
[2018-08-31] MEDS: Clindamycin 150mg cap ORAL SCH (17:25)
--- NOTE | 2018-08-31 18:02 | Cardiology Progress Note ---
Assessment/Plan Assessment/Plan 1. Sinus tachycardia, due to hypoxemia/breathing treatment, resolved, CXR on the day of admission was negative except COPD changes. 2. Most likely noncardiac chest pain. Electrocardiography shows sinus rhythm with premature ventricular complexes with no acute ST and T-wave abnormalities. AMI is ruled out by negative CE. Beta-natriuretic peptide is also within normal limits. Echo reveals normal LV systolic and diastolic function with LVEF at 55% and normal pulmonary artery pressure. 3. History of chronic obstructive pulmonary disease. 4. Obesity hypoventilation syndrome. 5. History of seizure disorder. 6. Hypertension heart disease. 7. Hyperlipidemia. Subjective Subjective No cardiac events reported. Objective Last 24 Hour Vital Signs Date Time Temp Pulse Resp B/P (MAP) Pulse Ox O2 Delivery O2 Flow Rate FiO2 08/31/18 16:19 98.2 08/31/18 16:00 97.6 75 20 149/89 (109) 97 20 08/31/18 14:07 97 20 98 Nasal Cannula 2.0 28 08/31/18 14:05 99 20 93 Nasal Cannula 3.0 32 08/31/18 13:18 98.2 08/31/18 12:00 98.2 104 20 133/89 (104) 95 08/31/18 09:28 97.7 08/31/18 09:00 Room Air 08/31/18 08:02 97 20 95 Nasal Cannula 2.0 28 08/31/18 08:00 97.7 99 20 149/97 (114) 93 08/31/18 07:55 97 20 93 Nasal Cannula 3.0 32 08/31/18 07:54 Nasal Cannula 3.0 32 08/31/18 07:54 93 Nasal Cannula 3.0 32 08/31/18 07:54 97 20 Nasal Cannula 3.0 32 08/31/18 04:00 98.8 101 20 136/78 (97) 96 101 08/31/18 00:00 99.0 105 19 144/73 (96) 97 105 08/30/18 21:00 Room Air 08/30/18 20:22 Nasal Cannula 3.0 32 08/30/18 20:22 94 Nasal Cannula 3.0 32 08/30/18 20:21 105 20 95 Nasal Cannula 2.0 28 08/30/18 20:21 104 20 Nasal Cannula 3.0 32 08/30/18 20:08 105 20 94 Nasal Cannula 3.0 32 08/30/18 20:00 98.6 112 20 107/93 (98) 95 112 Intake and Output 08/30/18 08/31/18 18:59 06:59 Intake Total 1120 ml 1031 ml Output Total 1420 ml 2425 ml Balance -300 ml -1394 ml Intake Oral 580 ml 500 ml IV Total 540 ml 531 ml Output Urine Total 1420 ml 2425 ml 2D Echo: LVEF 65%, Mild LVH, Moderate SELAM, RVSP 25 mmHg Laboratory Tests Test 08/31/18 04:45 White Blood Count 6.4 K/UL (4.8-10.8) Red Blood Count 3.84 M/UL (4.70-6.10) L Hemoglobin 12.5 G/DL (14.2-18.0) L Hematocrit 37.5 % (42.0-52.0) L Mean Corpuscular Volume 98 FL (80-99) Mean Corpuscular Hemoglobin 32.6 PG (27.0-31.0) H Mean Corpuscular Hemoglobin Concent 33.4 G/DL (32.0-36.0) Red Cell Distribution Width 12.5 % (11.6-14.8) Platelet Count 160 K/UL (150-450) Mean Platelet Volume 5.1 FL (6.5-10.1) L Neutrophils (%) (Auto) 71.2 % (45.0-75.0) Lymphocytes (%) (Auto) 17.0 % (20.0-45.0) L Monocytes (%) (Auto) 9.8 % (1.0-10.0) Eosinophils (%) (Auto) 1.5 % (0.0-3.0) Basophils (%) (Auto) 0.5 % (0.0-2.0) Sodium Level 142 MMOL/L (136-145) Potassium Level 3.0 MMOL/L (3.5-5.1) L Chloride Level 102 MMOL/L (98-107) Carbon Dioxide Level 35 MMOL/L (21-32) H Anion Gap 6 mmol/L (5-15) Blood Urea Nitrogen 20 mg/dL (7-18) H Creatinine 1.1 MG/DL (0.55-1.30) Estimat Glomerular Filtration Rate > 60 mL/min (>60) Glucose Level 112 MG/DL (74-106) H Calcium Level 9.1 MG/DL (8.5-10.1) Objective HEENT: Atraumatic and normocephalic. Anicteric. Pupils are equal, round, and reactive to light and accommodation. Extraocular muscles intact. NECK: JVP less than 5 cm. No carotid bruit. Carotid upstrokes 2+ bilaterally. CVS: Normal S1, S2. Regular rate and rhythm. Tachycardiac. No murmurs, gallops , or rubs. LUNGS: Diminished breath sounds bilaterally. ABDOMEN: Large pannus. Cannot appreciate hepatosplenomegaly. Positive bowel sounds. EXTREMITIES: There is no evidence of edema, clubbing, or cyanosis. Carlos Martins MD Aug 31, 2018 18:02
--- NOTE | 2018-08-31 19:08 | Nephrology Progress Note ---
Assessment/Plan Assessment 1. Persistent hypokalemia, most likely renal loss. 2. Prerenal azotemia. 3. Fluid overload. 4. Cellulitis of abdominal wall and pannus. 5. Cellulitis of the lower extremity. 6.hypokalemia Plan replace k check mg daily wt check in and out put avoid NSAID Fluid restriction Subjective Constitutional: Reports: no symptoms HEENT: Reports: no symptoms Neurologic/Psychiatric: Reports: no symptoms Subjective alert and awake has good urine out put Objective Objective Last 24 Hour Vital Signs Date Time Temp Pulse Resp B/P (MAP) Pulse Ox O2 Delivery O2 Flow Rate FiO2 08/31/18 16:19 98.2 08/31/18 16:00 97.6 75 20 149/89 (109) 97 20 08/31/18 14:07 97 20 98 Nasal Cannula 2.0 28 08/31/18 14:05 99 20 93 Nasal Cannula 3.0 32 08/31/18 13:18 98.2 08/31/18 12:00 98.2 104 20 133/89 (104) 95 08/31/18 09:28 97.7 08/31/18 09:00 Room Air 08/31/18 08:02 97 20 95 Nasal Cannula 2.0 28 08/31/18 08:00 97.7 99 20 149/97 (114) 93 08/31/18 07:55 97 20 93 Nasal Cannula 3.0 32 08/31/18 07:54 Nasal Cannula 3.0 32 08/31/18 07:54 93 Nasal Cannula 3.0 32 08/31/18 07:54 97 20 Nasal Cannula 3.0 32 08/31/18 04:00 98.8 101 20 136/78 (97) 96 101 08/31/18 00:00 99.0 105 19 144/73 (96) 97 105 08/30/18 21:00 Room Air 08/30/18 20:22 Nasal Cannula 3.0 32 08/30/18 20:22 94 Nasal Cannula 3.0 32 08/30/18 20:21 105 20 95 Nasal Cannula 2.0 28 08/30/18 20:21 104 20 Nasal Cannula 3.0 32 08/30/18 20:08 105 20 94 Nasal Cannula 3.0 32 08/30/18 20:00 98.6 112 20 107/93 (98) 95 112 Intake and Output 08/30/18 08/31/18 19:00 07:00 Intake Total 1109 ml 1042 ml Output Total 1420 ml 2425 ml Balance -311 ml -1383 ml Intake Oral 580 ml 500 ml IV Total 529 ml 542 ml Output Urine Total 1420 ml 2425 ml Laboratory Tests 08/31/18 04:45: White Blood Count 6.4, Red Blood Count 3.84L, Hemoglobin 12.5L, Hematocrit 37.5L , Mean Corpuscular Volume 98, Mean Corpuscular Hemoglobin 32.6H, Mean Corpuscular Hemoglobin Concent 33.4, Red Cell Distribution Width 12.5, Platelet Count 160, Mean Platelet Volume 5.1L, Neutrophils (%) (Auto) 71.2, Lymphocytes ( %) (Auto) 17.0L, Monocytes (%) (Auto) 9.8, Eosinophils (%) (Auto) 1.5, Basophils (%) (Auto) 0.5, Sodium Level 142, Potassium Level 3.0L, Chloride Level 102, Carbon Dioxide Level 35H, Anion Gap 6, Blood Urea Nitrogen 20H, Creatinine 1.1, Estimat Glomerular Filtration Rate > 60, Glucose Level 112H, Calcium Level 9.1 Height (Feet): 5 Height (Inches): 11.00 Weight (Pounds): 493 Objective HEAD AND NECK: No JVP. No LAD. No thyromegaly. Extraocular movement intact. Pupils are reactive to light and accommodation. LUNGS: Decreased breathing sound on both sides. CARDIAC: Regular rate and rhythm. S1-S2. No murmur. No rub. ABDOMEN: Obese and has enlarged pannus, which is red, is swollen and he also has some secretion from his belly button. EXTREMITIES: Both lower extremities have edema, increasing redness, chronic changes, left more than right. Misty Jonas MD Aug 31, 2018 19:08
--- NOTE | 2018-08-31 19:10 | NUR ---
NURSE NOTES: Received a report from MICAELA Smith. Pt is in stable condition. AAOX4. Able to make needs known. No respiratory distress noted. Uses NC 2L/min. C/O B leg pain, rated 4/10, will give pain med once it's due. PICC line 2 lumen on the L upper arm, is patent and intact. Bed in lowest position. Call light within reach. Will continue to monitor.
[2018-08-31 20:00] VITALS: BP 149/78
--- NOTE | 2018-08-31 20:00 | General Progress Note ---
Assessment/Plan Assessment/Plan ASSESSMENT/RECOMMENDATIONS # Anemia of chronic disease (or of iron deficiency) due to underlying chronic medical issues, multifactorial --> Anemia workup has been ordered --> No evidence of hemolysis is noted, peripheral smear has been reviewed. --> Hgb goal >7. Transfuse prn. --> Epogen or iron at this time is not particularly indicated --> Medications have been reviewed # Thrombocytopenia - potential causes multifactorial, evaluate liver and viral etiologies to begin, also could be related to underlying medications patient has received. --> Hep panel and HIV ordered --> US abd to evaluate for cirrhosis and hsm ordered --> Peripheral smear ordered to evaluate for blasts /schistocytes --> abx and other meds have been reviewed --> ok for ppx if plt >50k w/ either heparin or lovenox --->Transfuse if Plt < 20k and fever, or if Plt < 10k without fever # Sinus tachycardia, due to hypoxemia/breathing treatment. --> Most likely noncardiac chest pain. # History of chronic obstructive pulmonary disease. # Obesity hypoventilation syndrome. # History of seizure disorder. # Hypertension heart disease. # Hyperlipidemia. # Hypokalemic, K supplement given, am labs. The timing of this note does not necessarily reflect the time of the patient was seen Greatly appreciate consultation! Subjective HEENT: Denies: no symptoms, eye pain, blurred vision, tearing, double vision, ear pain, ear discharge, nose pain, nose congestion, throat pain, throat swelling, mouth pain, mouth swelling, other Cardiovascular: Denies: no symptoms, chest pain, edema, irregular heart rate, lightheadedness, palpitations, syncope, other Respiratory: Denies: no symptoms, cough, orthopnea, shortness of breath, SOB with excertion, SOB at rest, sputum, stridor, wheezing, other Gastrointestinal/Abdominal: Denies: no symptoms, abdomen distended, abdominal pain, black stools, tarry stools, blood in stool, constipated, diarrhea, difficulty swallowing, nausea, poor appetite, poor fluid intake, rectal bleeding , vomiting, other Genitourinary: Denies: no symptoms, burning, discharge, frequency, flank pain, hematuria, incontinence, pain, urgency, other Neurologic/Psychiatric: Denies: no symptoms, anxiety, depressed, emotional problems, headache, numbness, paresthesia, pre-existing deficit, seizure, tingling, tremors, weakness, other Endocrine: Denies: no symptoms, excessive sweating, flushing, intolerance to cold, intolerance to heat, increased hunger, increased thirst, increased urine, unexplained weight gain, unexplained weight loss, other Hematologic/Lymphatic: Reports: no symptoms, anemia, easy bleeding, easy bruising, other Allergies: Coded Allergies: ASPIRIN (Verified Allergy, Unknown, 07/14/18) KETOROLAC (Verified Allergy, Unknown, 07/14/18) PENICILLINS (Verified Allergy, Unknown, 07/14/18) Subjective 2/4: remains on abx, no f/c, no ns, remains with cellulitis on pannus abdomen Objective Last 24 Hour Vital Signs Date Time Temp Pulse Resp B/P (MAP) Pulse Ox O2 Delivery O2 Flow Rate FiO2 08/31/18 16:19 98.2 08/31/18 16:00 97.6 75 20 149/89 (109) 97 20 08/31/18 14:07 97 20 98 Nasal Cannula 2.0 28 08/31/18 14:05 99 20 93 Nasal Cannula 3.0 32 08/31/18 13:18 98.2 08/31/18 12:00 98.2 104 20 133/89 (104) 95 08/31/18 09:28 97.7 08/31/18 09:00 Room Air 08/31/18 08:02 97 20 95 Nasal Cannula 2.0 28 08/31/18 08:00 97.7 99 20 149/97 (114) 93 08/31/18 07:55 97 20 93 Nasal Cannula 3.0 32 08/31/18 07:54 Nasal Cannula 3.0 32 08/31/18 07:54 93 Nasal Cannula 3.0 32 08/31/18 07:54 97 20 Nasal Cannula 3.0 32 08/31/18 04:00 98.8 101 20 136/78 (97) 96 101 08/31/18 00:00 99.0 105 19 144/73 (96) 97 105 08/30/18 21:00 Room Air 08/30/18 20:22 Nasal Cannula 3.0 32 08/30/18 20:22 94 Nasal Cannula 3.0 32 08/30/18 20:21 105 20 95 Nasal Cannula 2.0 28 08/30/18 20:21 104 20 Nasal Cannula 3.0 32 08/30/18 20:08 105 20 94 Nasal Cannula 3.0 32 08/30/18 20:00 98.6 112 20 107/93 (98) 95 112 Intake and Output 08/30/18 08/31/18 19:00 07:00 Intake Total 1109 ml 1042 ml Output Total 1420 ml 2425 ml Balance -311 ml -1383 ml Intake Oral 580 ml 500 ml IV Total 529 ml 542 ml Output Urine Total 1420 ml 2425 ml Laboratory Tests 08/31/18 04:45: White Blood Count 6.4, Red Blood Count 3.84L, Hemoglobin 12.5L, Hematocrit 37.5L , Mean Corpuscular Volume 98, Mean Corpuscular Hemoglobin 32.6H, Mean Corpuscular Hemoglobin Concent 33.4, Red Cell Distribution Width 12.5, Platelet Count 160, Mean Platelet Volume 5.1L, Neutrophils (%) (Auto) 71.2, Lymphocytes ( %) (Auto) 17.0L, Monocytes (%) (Auto) 9.8, Eosinophils (%) (Auto) 1.5, Basophils (%) (Auto) 0.5, Sodium Level 142, Potassium Level 3.0L, Chloride Level 102, Carbon Dioxide Level 35H, Anion Gap 6, Blood Urea Nitrogen 20H, Creatinine 1.1, Estimat Glomerular Filtration Rate > 60, Glucose Level 112H, Calcium Level 9.1 Height (Feet): 5 Height (Inches): 11.00 Weight (Pounds): 493 Objective PHYSICAL EXAMINATION: GENERAL: O2 NC, slightly anxious in bed, slight short of breath. VITAL SIGNS reviewed and are wnl CARDIOVASCULAR: No murmur. LUNGS: Poor exchange. ABDOMEN: Bowel sounds distant. EXTREMITIES: Show no cyanosis or clubbing. 1+ edema. NEUROLOGIC: The patient moves all extremities, slightly weak. Jay Wilson MD Aug 31, 2018 20:00
[2018-08-31] MEDS: Atorvastatin 80mg tab ORAL SCH (21:02)
[2018-08-31] MEDS: TraZODone 100mg tab ORAL SCH (21:02)
[2018-08-31] MEDS: Dyna-Hex 2% Top Sol 2oz TOPIC SCH (21:03)
[2018-09-01] VITALS: BP 139/83
--- NOTE | 2018-09-01 | NUR ---
NURSE NOTES: Jarvis 1.5 gm non-admin due to time change. Will administer it at 0200 instead.
[2018-09-01] MEDS: Clindamycin 150mg cap ORAL SCH ×4 (01:04→18:42)
--- NOTE | 2018-09-01 01:20 | NUR ---
NURSE NOTES: Talked to Dr. Chauhan. He told me to continue the Vanco 1.5gm Q8H. Charge Nurse Caterina made aware.
[2018-09-01] MEDS: Vancomycin 1.5gm/D5W Premix 250 ML IVPB SCH ×4 (02:01→18:43)
[2018-09-01 04:00] VITALS: BP 117/71
[2018-09-01] MEDS: ceFAZolin 2gm/50ml Premix 50 ML IV SCH ×4 (06:24→23:02)
[2018-09-01 06:46] LABS: BASOPHILS % (AUTO) 0.5 % (0.0-2.0); EOSINOPHILS % (AUTO) 1.6 % (0.0-3.0); HEMATOCRIT 37.4 % (42.0-52.0); HEMOGLOBIN 12.7 G/DL (14.2-18.0); LYMPHOCYTES % (AUTO) 21.7 % (20.0-45.0); MEAN CORPUSCULAR VOLUME 97 FL (80-99); MONOCYTES % (AUTO) 7.1 % (1.0-10.0); NEUTROPHILS % (AUTO) 69.1 % (45.0-75.0); PLATELET COUNT 170 K/UL (150-450); RED BLOOD COUNT 3.84 M/UL (4.70-6.10); RED CELL DISTRIBUTION WIDTH 12.2 % (11.6-14.8); WHITE BLOOD COUNT 6.4 K/UL (4.8-10.8)
[2018-09-01 06:48] LABS: ANION GAP 6 mmol/L (5-15); BLOOD UREA NITROGEN 24 mg/dL (7-18); CALCIUM 8.6 MG/DL (8.5-10.1); CARBON DIOXIDE 36 MMOL/L (21-32); CHLORIDE 99 MMOL/L (98-107); CREATININE 1.3 MG/DL (0.55-1.30); POTASSIUM 2.9 MMOL/L (3.5-5.1); SODIUM 141 MMOL/L (136-145)
--- NOTE | 2018-09-01 07:00 | NUR ---
HAND-OFF: Report given to MICAELA Huff. Lolis HINOJOSA endorsed to Refugio HINOJOSA to hang the bag of Lasix after the other Lasix bag is finished. MICAELA Huff is also aware that the pt ate 20% of food for breakfast.
--- NOTE | 2018-09-01 07:05 | NUR ---
NURSE NOTES: Patient did not want to be on NPO today for the procedure, he prefers the procedure to be done tomorrow.Rn explained to the patient of the importance of the procedure and explained the risks and benefits.Patient fully understood but prefers to be done tomorrow. RN informed Dr. Wilson who ordered the US.Dr. Wilson said ok to do the US of abdomen tomorrow morning. RN spoke with Ivis, the earliest time for the procedure will be @8:00am. Patient made aware of NPO post midnight.
--- NOTE | 2018-09-01 07:10 | NUR ---
Patient is awake, alert and oriented X4 and able to make needs known, No acute distress noted. PICC line 2 lumen on the L upper arm, is patent and intact, Bed in lowest position and locked, Call light and needs within reach. Will continue to monitor. Addendum: 09/01/18 at 0950 by Ariella Barrett RN wrong entry
[2018-09-01 08:00] VITALS: BP 144/83
--- NOTE | 2018-09-01 08:05 | Surgery Progress Note ---
Surgery Progress Note Subjective Additional Comments no acute events. still with worsening edema to legs and pannus. erythema, tender. labs noted. fluid overloaded Objective Last 24 Hour Vital Signs Date Time Temp Pulse Resp B/P (MAP) Pulse Ox O2 Delivery O2 Flow Rate FiO2 09/01/18 04:00 98.0 103 22 117/71 (86) 94 103 09/01/18 00:00 98.6 105 20 139/83 (101) 95 105 08/31/18 22:21 101 20 98 Nasal Cannula 2.0 28 08/31/18 22:15 97 20 94 Nasal Cannula 3.0 32 08/31/18 21:00 Room Air 08/31/18 20:00 97.8 102 20 149/78 (101) 94 102 08/31/18 19:40 92 22 Nasal Cannula 3.0 32 08/31/18 19:40 93 Nasal Cannula 3.0 32 08/31/18 19:40 Nasal Cannula 3.0 32 08/31/18 16:19 98.2 08/31/18 16:00 97.6 75 20 149/89 (109) 97 20 08/31/18 14:07 97 20 98 Nasal Cannula 2.0 28 08/31/18 14:05 99 20 93 Nasal Cannula 3.0 32 08/31/18 13:18 98.2 08/31/18 12:00 98.2 104 20 133/89 (104) 95 08/31/18 09:28 97.7 08/31/18 09:00 Room Air I&O Intake and Output 08/31/18 09/01/18 19:00 07:00 Intake Total 1010 ml 471 ml Output Total 2800 ml 1150 ml Balance -1790 ml -679 ml Intake Oral 600 ml IV Total 410 ml 471 ml Output Urine Total 2800 ml 1150 ml # Voids 6 Dressing: other Wound: other Drains: other Cardiovascular: RSR Respiratory: decreased breath sounds Abdomen: soft, tenderness, other Extremities: edema, tenderness, other Laboratory Tests Test 09/01/18 05:30 White Blood Count 6.4 K/UL (4.8-10.8) Red Blood Count 3.84 M/UL (4.70-6.10) L Hemoglobin 12.7 G/DL (14.2-18.0) L Hematocrit 37.4 % (42.0-52.0) L Mean Corpuscular Volume 97 FL (80-99) Mean Corpuscular Hemoglobin 33.1 PG (27.0-31.0) H Mean Corpuscular Hemoglobin Concent 34.0 G/DL (32.0-36.0) Red Cell Distribution Width 12.2 % (11.6-14.8) Platelet Count 170 K/UL (150-450) Mean Platelet Volume 5.4 FL (6.5-10.1) L Neutrophils (%) (Auto) 69.1 % (45.0-75.0) Lymphocytes (%) (Auto) 21.7 % (20.0-45.0) Monocytes (%) (Auto) 7.1 % (1.0-10.0) Eosinophils (%) (Auto) 1.6 % (0.0-3.0) Basophils (%) (Auto) 0.5 % (0.0-2.0) Sodium Level 141 MMOL/L (136-145) Potassium Level 2.9 MMOL/L (3.5-5.1) L Chloride Level 99 MMOL/L (98-107) Carbon Dioxide Level 36 MMOL/L (21-32) H Anion Gap 6 mmol/L (5-15) Blood Urea Nitrogen 24 mg/dL (7-18) H Creatinine 1.3 MG/DL (0.55-1.30) Estimat Glomerular Filtration Rate 57.5 mL/min (>60) Glucose Level 140 MG/DL (74-106) H Calcium Level 8.6 MG/DL (8.5-10.1) Plan Problems: (1) Abdominal wall cellulitis Assessment & Plan: very fluid overloaded developing cellulitis of pannus and lower extremities. no abscess. pannus much larger than prior with erythema and edema and induration lower extremities with severe edema and blistering and cellulitis Lasix IV Abx keep legs elevated unfortunately no surgical intervention at this time. will need to follow closely for abscess development thank you (2) Abdominal pannus Gt Fernandez Sep 01, 2018 08:05
--- NOTE | 2018-09-01 08:33 | NUR ---
NURSE NOTES: Dr. Jonas made aware with Low potassium level 2.9 with new order to increase potassium to 40 Meq Q6HRs. order noted and carried out.
--- NOTE | 2018-09-01 08:50 | NUR ---
NURSE NOTES: Patient requested for 3 whole milk, 3 raisin bran and 15 pack of sugar. RN tried to explain about fluid restriction and calorie. EDNA Pretty came up and re-educated patient. RN encouraged patient to elevate his legs on pillow while in bed.
[2018-09-01] MEDS: MS Contin 15mg tab ORAL SCH ×2 (09:05→19:54)
[2018-09-01] MEDS: Theophylline ER 100mg ORAL SCH (09:07)
--- NOTE | 2018-09-01 10:12 | Infectious Diseases Prog Note ---
Assessment/Plan Assessment/Plan 52 yo male with PMHx of Seizures, COPD and CHF who was sent to the ED from his detention on 08/22/18 for SOB. Posterior neck mass \ Most likely inflamed lipoma per US read Unable to get MRI or CT so will continue abx as this will treat any cellulitic component of his inflamed pannus as well. No fever No leukocytosis 08/26/18 US neck shows possible lipoma Facial sores. Likely some sort of staph infection Sores seem to be healing. Pannus - Possible cellulitis developing Erythema of skin - Painful PLAN -Continue Vancomyin #7/10 - Continue Cefazolin #2 for more strep coverage - Monitor CBC and Temps We will continue to follow the patient during this hospitalization. Subjective Allergies: Coded Allergies: ASPIRIN (Verified Allergy, Unknown, 07/14/18) KETOROLAC (Verified Allergy, Unknown, 07/14/18) PENICILLINS (Verified Allergy, Unknown, 07/14/18) Subjective Still with pannus erythema Afebrile No leukocytosis Objective Vital Signs Last 24 Hour Vital Signs Date Time Temp Pulse Resp B/P (MAP) Pulse Ox O2 Delivery O2 Flow Rate FiO2 09/01/18 09:34 Nasal Cannula 3.0 32 09/01/18 09:34 94 Nasal Cannula 3.0 32 09/01/18 09:34 99 20 Nasal Cannula 3.0 32 09/01/18 04:00 98.0 103 22 117/71 (86) 94 103 09/01/18 00:00 98.6 105 20 139/83 (101) 95 105 08/31/18 22:21 101 20 98 Nasal Cannula 2.0 28 08/31/18 22:15 97 20 94 Nasal Cannula 3.0 32 08/31/18 21:00 Room Air 08/31/18 20:00 97.8 102 20 149/78 (101) 94 102 08/31/18 19:40 92 22 Nasal Cannula 3.0 32 08/31/18 19:40 93 Nasal Cannula 3.0 32 08/31/18 19:40 Nasal Cannula 3.0 32 08/31/18 16:19 98.2 08/31/18 16:00 97.6 75 20 149/89 (109) 97 20 08/31/18 14:07 97 20 98 Nasal Cannula 2.0 28 08/31/18 14:05 99 20 93 Nasal Cannula 3.0 32 08/31/18 13:18 98.2 08/31/18 12:00 98.2 104 20 133/89 (104) 95 Height (Feet): 5 Height (Inches): 11.00 Weight (Pounds): 495 Objective Gen: NAD, Sittign on the edge of his bed HEENT: NCAT, MMM, EOMl LUNGS: CTAB, No W CARDS: RRR, S1, S2, No M/R/G, ABD: Soft, Obese, Enlarged pannus with mild erythema and TTP. No warmth. + BS Ext: Severe edema of feet, Pulses 2+ B/L (DP, Rad): NEURO: A/O x 4, Strength and Sensation Grossly intact SKIN: Small scabbed sores on for head and arms (healing) posterior left neck with 3-4cm area of pain with swelling. Erythema and warmth resolved Laboratory Tests Test 09/01/18 05:30 White Blood Count 6.4 K/UL (4.8-10.8) Red Blood Count 3.84 M/UL (4.70-6.10) L Hemoglobin 12.7 G/DL (14.2-18.0) L Hematocrit 37.4 % (42.0-52.0) L Mean Corpuscular Volume 97 FL (80-99) Mean Corpuscular Hemoglobin 33.1 PG (27.0-31.0) H Mean Corpuscular Hemoglobin Concent 34.0 G/DL (32.0-36.0) Red Cell Distribution Width 12.2 % (11.6-14.8) Platelet Count 170 K/UL (150-450) Mean Platelet Volume 5.4 FL (6.5-10.1) L Neutrophils (%) (Auto) 69.1 % (45.0-75.0) Lymphocytes (%) (Auto) 21.7 % (20.0-45.0) Monocytes (%) (Auto) 7.1 % (1.0-10.0) Eosinophils (%) (Auto) 1.6 % (0.0-3.0) Basophils (%) (Auto) 0.5 % (0.0-2.0) Sodium Level 141 MMOL/L (136-145) Potassium Level 2.9 MMOL/L (3.5-5.1) L Chloride Level 99 MMOL/L (98-107) Carbon Dioxide Level 36 MMOL/L (21-32) H Anion Gap 6 mmol/L (5-15) Blood Urea Nitrogen 24 mg/dL (7-18) H Creatinine 1.3 MG/DL (0.55-1.30) Estimat Glomerular Filtration Rate 57.5 mL/min (>60) Glucose Level 140 MG/DL (74-106) H Calcium Level 8.6 MG/DL (8.5-10.1) Current Medications Medications (Trade) Dose Ordered Sig/Luis Route PRN Reason Start Time Stop Time Status Last Admin Dose Admin Acetaminophen (Tylenol) 650 mg Q4H PRN ORAL FEVER 08/27/18 15:30 09/21/18 15:29 Acetaminophen/ Hydrocodone Bitart (Desdemona 10/325) 1 tab Q4H PRN ORAL pain 3-6 08/27/18 16:24 09/03/18 16:23 Albuterol/ Ipratropium (Albuterol/ Ipratropium) 3 ml Q4H PRN HHN Shortness of Breath 08/27/18 18:45 09/01/18 18:44 08/31/18 22:12 Atorvastatin Calcium (Lipitor) 80 mg BEDTIME ORAL 08/27/18 21:00 09/21/18 20:59 08/31/18 21:02 Cefazolin Sodium 50 ml @ 100 mls/hr Q8HR IV 08/31/18 06:00 09/07/18 05:59 09/01/18 06:24 Chlorhexidine Gluconate (Ruby-Hex 2%) 1 applic DAILY@2000 TOPIC 08/27/18 20:00 09/24/18 19:59 08/31/18 21:03 Clindamycin HCl (Cleocin) 450 mg EVERY 6 HOURS ORAL 08/31/18 18:00 09/07/18 17:59 09/01/18 06:24 Clopidogrel Bisulfate (Plavix) 75 mg DAILY ORAL 08/28/18 09:00 09/22/18 08:59 09/01/18 09:02 Enalaprilat (Vasotec) 2.5 mg Q6H PRN IV sbp more than 160 08/27/18 15:30 09/21/18 15:29 Furosemide 100 mg/ Dextrose 110 ml @ 11 mls/hr Q10H IV 08/27/18 16:00 09/24/18 15:59 09/01/18 08:08 Gabapentin (Neurontin) 600 mg THREE TIMES A DAY ORAL 08/27/18 18:00 09/22/18 08:59 09/01/18 09:03 Hydromorphone HCl (Dilaudid) 4 mg Q3H PRN IVP Severe Pain (Pain Scale 7-10) 08/31/18 16:02 09/02/18 16:01 09/01/18 07:22 Levetiracetam (Keppra) 500 mg Q12HR ORAL 08/30/18 09:00 09/29/18 08:59 09/01/18 09:03 Methocarbamol (Robaxin) 500 mg Q8H PRN ORAL muscle spasm 08/30/18 11:00 09/29/18 10:59 Morphine Sulfate (MS Contin) 15 mg Q12HR ORAL 08/30/18 10:45 09/06/18 10:44 09/01/18 09:05 Nitroglycerin (Ntg) 0.4 mg Q5M PRN SL Prn Chest Pain 08/27/18 15:30 09/21/18 15:29 Ondansetron HCl (Zofran) 4 mg Q6H PRN IVP Nausea & Vomiting 08/27/18 15:30 09/21/18 15:29 Polyethylene Glycol (Miralax) 17 gm DAILYPRN PRN ORAL Constipation 08/27/18 15:30 09/21/18 15:29 Potassium Chloride (K-Dur) 40 meq Q6HR ORAL 09/01/18 12:00 09/29/18 11:59 Theophylline (George-Dur) 100 mg DAILY ORAL 08/28/18 09:00 09/22/18 08:59 09/01/18 09:07 Trazodone HCl (Desyrel) 100 mg BEDTIME ORAL 08/27/18 21:00 09/23/18 20:59 08/31/18 21:02 Vancomycin HCl (Vanco rx to dose) 1 ea DAILY PRN MISC Per rx protocol 08/27/18 16:00 09/26/18 15:59 Vancomycin HCl/ Dextrose 250 ml @ 125 mls/hr Q8H IVPB 09/01/18 02:00 09/06/18 01:59 09/01/18 02:01 Elliot Chauhan MD Sep 01, 2018 10:12
--- NOTE | 2018-09-01 11:17 | NUR ---
NURSE NOTES: Per YAMILETH from [facility],patient refused to be evaluated.
[2018-09-01 12:00] VITALS: BP 113/93
[2018-09-01] MEDS ORDERED: Cathflo Alteplase 2mg Inj INJ SCH (13:00)
--- NOTE | 2018-09-01 13:20 | NUR ---
ACCOUNTS CLERKBINDERY CHIEF SI; COPD EXACERBATION,PANNUS CELLULITIS T. 97.9 HR 107 RR 22 B/P 144/83 3L NC O2 SAT @ 98% K 2.5 IS: VANCO IV CLEOCIN PO CEFAZOLIN IV K-DUR PO LASIX GTT DILAUDID IV PROMISE EVAL MED/SURG STATUS
--- NOTE | 2018-09-01 13:26 | NUR ---
RD ASSESSMENT & RECOMMENDATIONS SEE CARE ACTIVITY FOR COMPLETE ASSESSMENT DAILY ESTIMATED NEEDS: Needs based on obesity, pulmonary, 104kg abw 15-20 kcals/kg 6948-5974 total kcals 1-1.5 g protein/kg 104-156 g total protein Fluid per MD, on lasix mL/kg 1L per MD order. total fluid mLs NUTRITION DIAGNOSIS: Decreased sodium and fat intake needs R/T cardiac h/o, fluid retention and morbid obesity as evidenced by h/o CHF dx, BL legs w/ edema 4+, on diuretics, w/ BMI>50. CURRENT DIET:Regular PO DIET RECOMMENDATIONS: REC DIET CHANGE TO --> CARDIAC DIET ADDITIONAL RECOMMENDATIONS: * Obtain a standing weight as able or calibrated bedscale wt for accurate CBW-> Per EMR cf=[id number], stated wt= 389lbs * A1C for eval of glycemic control- elev BG * Monitor lytes closely w/ diuretics, replete as needed * Pt not receptive to diet edu re: Fluid restriction and pt's excessive kcal intake
--- NOTE | 2018-09-01 13:31 | General Progress Note ---
Assessment/Plan Problem List: (1) Peripheral edema ICD Codes: R60.9 - Edema, unspecified SNOMED: 969678651 (2) COPD (chronic obstructive pulmonary disease) ICD Codes: J44.9 - Chronic obstructive pulmonary disease, unspecified SNOMED: 18960277 Qualifiers: Qualified Codes: J44.9 - Chronic obstructive pulmonary disease, unspecified (3) Leg pain ICD Codes: M79.606 - Pain in leg, unspecified SNOMED: 80657987 (4) Morbid obesity ICD Codes: E66.01 - Morbid (severe) obesity due to excess calories SNOMED: 032173146 (5) Seizures ICD Codes: R56.9 - Unspecified convulsions SNOMED: 93177761 (6) Right heart failure ICD Codes: I50.810 - Right heart failure, unspecified SNOMED: 178390601 (7) ACS (acute coronary syndrome) ICD Codes: I24.9 - Acute ischemic heart disease, unspecified SNOMED: 685641151 (8) Abdominal pannus ICD Codes: E65 - Localized adiposity SNOMED: 8414041854910 (9) Abdominal wall cellulitis ICD Codes: L03.311 - Cellulitis of abdominal wall SNOMED: 38921373 Status: unchanged Assessment/Plan o2 pulm tx abx prn seizure pain control pt diet cbc bmp am ltach eval Subjective Constitutional: Reports: weakness Respiratory: Reports: shortness of breath Allergies: Coded Allergies: ASPIRIN (Verified Allergy, Unknown, 07/14/18) KETOROLAC (Verified Allergy, Unknown, 07/14/18) PENICILLINS (Verified Allergy, Unknown, 07/14/18) All Systems: reviewed and negative except above Subjective sitting sob Objective Last 24 Hour Vital Signs Date Time Temp Pulse Resp B/P (MAP) Pulse Ox O2 Delivery O2 Flow Rate FiO2 09/01/18 09:34 Nasal Cannula 3.0 32 09/01/18 09:34 94 Nasal Cannula 3.0 32 09/01/18 09:34 99 20 Nasal Cannula 3.0 32 09/01/18 09:00 Room Air 09/01/18 08:00 97.9 107 20 144/83 (103) 96 09/01/18 04:00 98.0 103 22 117/71 (86) 94 103 09/01/18 00:00 98.6 105 20 139/83 (101) 95 105 08/31/18 22:21 101 20 98 Nasal Cannula 2.0 28 08/31/18 22:15 97 20 94 Nasal Cannula 3.0 32 08/31/18 21:00 Room Air 08/31/18 20:00 97.8 102 20 149/78 (101) 94 102 08/31/18 19:40 92 22 Nasal Cannula 3.0 32 08/31/18 19:40 93 Nasal Cannula 3.0 32 08/31/18 19:40 Nasal Cannula 3.0 32 08/31/18 16:19 98.2 08/31/18 16:00 97.6 75 20 149/89 (109) 97 20 08/31/18 14:07 97 20 98 Nasal Cannula 2.0 28 08/31/18 14:05 99 20 93 Nasal Cannula 3.0 32 Intake and Output 08/31/18 09/01/18 19:00 07:00 Intake Total 1010 ml 471 ml Output Total 2800 ml 1150 ml Balance -1790 ml -679 ml Intake Oral 600 ml IV Total 410 ml 471 ml Output Urine Total 2800 ml 1150 ml # Voids 6 Laboratory Tests 09/01/18 05:30: White Blood Count 6.4, Red Blood Count 3.84L, Hemoglobin 12.7L, Hematocrit 37.4L , Mean Corpuscular Volume 97, Mean Corpuscular Hemoglobin 33.1H, Mean Corpuscular Hemoglobin Concent 34.0, Red Cell Distribution Width 12.2, Platelet Count 170, Mean Platelet Volume 5.4L, Neutrophils (%) (Auto) 69.1, Lymphocytes ( %) (Auto) 21.7, Monocytes (%) (Auto) 7.1, Eosinophils (%) (Auto) 1.6, Basophils (%) (Auto) 0.5, Sodium Level 141, Potassium Level 2.9L, Chloride Level 99, Carbon Dioxide Level 36H, Anion Gap 6, Blood Urea Nitrogen 24H, Creatinine 1.3, Estimat Glomerular Filtration Rate 57.5, Glucose Level 140H, Calcium Level 8.6 Height (Feet): 5 Height (Inches): 11.00 Weight (Pounds): 495 General Appearance: alert EENT: normal ENT inspection Neck: normal alignment Cardiovascular: normal peripheral pulses, normal rate, regular rhythm Respiratory/Chest: chest wall non-tender, lungs clear, normal breath sounds Abdomen: normal bowel sounds, non tender, soft, distended Extremities: swelling Edema: 2+ Arm (L), 2+ Arm (R), 2+ Leg (L), 2+ Leg (R), 2+ Pedal (L), 2+ Pedal ( R), 2+ Generalized Edema: mild edema Neurologic: responsive, motor weakness Skin: normal pigmentation, warm/dry Ernesto Nicole DO Sep 01, 2018 13:31
--- NOTE | 2018-09-01 13:46 | NUR ---
*-* DISCHARGE PLANNING *-* PATIENT HAS BEEN REFERRED TO: [facility] P:[phone] F:[phone]
--- NOTE | 2018-09-01 14:08 | Pulmonology Progress Note ---
Assessment/Plan Problems: (1) ACS (acute coronary syndrome) (2) COPD (chronic obstructive pulmonary disease) (3) Right heart failure (4) Abdominal pannus (5) ADALBERTO (obstructive sleep apnea) (6) Seizures (7) Morbid obesity Assessment/Plan wants more dilaudid still diuresing a lot bipap prn at night cardiology f/u serial ekg, troponin continue lasix drip increase dilaudid ot q3 hours watch bun/creatinine symptomatic treatment dvt prophylaxis titrate fio2 to saturation of 92% Subjective ROS Limited/Unobtainable: No Constitutional: Reports: no symptoms HEENT: Repors: no symptoms Respiratory: Reports: no symptoms Allergies: Coded Allergies: ASPIRIN (Verified Allergy, Unknown, 07/14/18) KETOROLAC (Verified Allergy, Unknown, 07/14/18) PENICILLINS (Verified Allergy, Unknown, 07/14/18) Objective Last 24 Hour Vital Signs Date Time Temp Pulse Resp B/P (MAP) Pulse Ox O2 Delivery O2 Flow Rate FiO2 09/01/18 09:34 Nasal Cannula 3.0 32 09/01/18 09:34 94 Nasal Cannula 3.0 32 09/01/18 09:34 99 20 Nasal Cannula 3.0 32 09/01/18 09:00 Room Air 09/01/18 08:00 97.9 107 20 144/83 (103) 96 09/01/18 04:00 98.0 103 22 117/71 (86) 94 103 09/01/18 00:00 98.6 105 20 139/83 (101) 95 105 08/31/18 22:21 101 20 98 Nasal Cannula 2.0 28 08/31/18 22:15 97 20 94 Nasal Cannula 3.0 32 08/31/18 21:00 Room Air 08/31/18 20:00 97.8 102 20 149/78 (101) 94 102 08/31/18 19:40 92 22 Nasal Cannula 3.0 32 08/31/18 19:40 93 Nasal Cannula 3.0 32 08/31/18 19:40 Nasal Cannula 3.0 32 08/31/18 16:19 98.2 08/31/18 16:00 97.6 75 20 149/89 (109) 97 20 Intake and Output 08/31/18 09/01/18 19:00 07:00 Intake Total 1010 ml 471 ml Output Total 2800 ml 1150 ml Balance -1790 ml -679 ml Intake Oral 600 ml IV Total 410 ml 471 ml Output Urine Total 2800 ml 1150 ml # Voids 6 General Appearance: WD/WN HEENT: normocephalic, mucous membranes moist Respiratory/Chest: chest wall non-tender, normal breath sounds Cardiovascular: normal peripheral pulses, normal rate, regular rhythm Abdomen: normal bowel sounds, soft, non tender Extremities: no cyanosis Skin: no rash Laboratory Tests 09/01/18 05:30: White Blood Count 6.4, Red Blood Count 3.84L, Hemoglobin 12.7L, Hematocrit 37.4L , Mean Corpuscular Volume 97, Mean Corpuscular Hemoglobin 33.1H, Mean Corpuscular Hemoglobin Concent 34.0, Red Cell Distribution Width 12.2, Platelet Count 170, Mean Platelet Volume 5.4L, Neutrophils (%) (Auto) 69.1, Lymphocytes ( %) (Auto) 21.7, Monocytes (%) (Auto) 7.1, Eosinophils (%) (Auto) 1.6, Basophils (%) (Auto) 0.5, Sodium Level 141, Potassium Level 2.9L, Chloride Level 99, Carbon Dioxide Level 36H, Anion Gap 6, Blood Urea Nitrogen 24H, Creatinine 1.3, Estimat Glomerular Filtration Rate 57.5, Glucose Level 140H, Calcium Level 8.6 Current Medications Medications (Trade) Dose Ordered Sig/Luis Route PRN Reason Start Time Stop Time Status Last Admin Dose Admin Acetaminophen (Tylenol) 650 mg Q4H PRN ORAL FEVER 08/27/18 15:30 09/21/18 15:29 Acetaminophen/ Hydrocodone Bitart (Gallion 10/325) 1 tab Q4H PRN ORAL pain 3-6 08/27/18 16:24 09/03/18 16:23 Albuterol/ Ipratropium (Albuterol/ Ipratropium) 3 ml Q4H PRN HHN Shortness of Breath 08/27/18 18:45 09/01/18 18:44 08/31/18 22:12 Alteplase, Recombinant (Cathflo) 2 mg ONCE INJ 09/01/18 13:00 09/01/18 15:00 09/01/18 13:22 Atorvastatin Calcium (Lipitor) 80 mg BEDTIME ORAL 08/27/18 21:00 09/21/18 20:59 08/31/18 21:02 Cefazolin Sodium 50 ml @ 100 mls/hr Q8HR IV 08/31/18 06:00 09/07/18 05:59 09/01/18 06:24 Chlorhexidine Gluconate (Ruby-Hex 2%) 1 applic DAILY@2000 TOPIC 08/27/18 20:00 09/24/18 19:59 08/31/18 21:03 Clindamycin HCl (Cleocin) 450 mg EVERY 6 HOURS ORAL 08/31/18 18:00 09/07/18 17:59 09/01/18 13:23 Clopidogrel Bisulfate (Plavix) 75 mg DAILY ORAL 08/28/18 09:00 09/22/18 08:59 09/01/18 09:02 Enalaprilat (Vasotec) 2.5 mg Q6H PRN IV sbp more than 160 08/27/18 15:30 09/21/18 15:29 Furosemide 100 mg/ Dextrose 110 ml @ 11 mls/hr Q10H IV 08/27/18 16:00 09/24/18 15:59 09/01/18 08:08 Gabapentin (Neurontin) 600 mg THREE TIMES A DAY ORAL 08/27/18 18:00 09/22/18 08:59 09/01/18 13:23 Hydromorphone HCl (Dilaudid) 4 mg Q3H PRN IVP Severe Pain (Pain Scale 7-10) 08/31/18 16:02 09/02/18 16:01 09/01/18 13:32 Levetiracetam (Keppra) 500 mg Q12HR ORAL 08/30/18 09:00 09/29/18 08:59 09/01/18 09:03 Methocarbamol (Robaxin) 500 mg Q8H PRN ORAL muscle spasm 08/30/18 11:00 09/29/18 10:59 Morphine Sulfate (MS Contin) 15 mg Q12HR ORAL 08/30/18 10:45 09/06/18 10:44 09/01/18 09:05 Nitroglycerin (Ntg) 0.4 mg Q5M PRN SL Prn Chest Pain 08/27/18 15:30 09/21/18 15:29 Ondansetron HCl (Zofran) 4 mg Q6H PRN IVP Nausea & Vomiting 08/27/18 15:30 09/21/18 15:29 Polyethylene Glycol (Miralax) 17 gm DAILYPRN PRN ORAL Constipation 08/27/18 15:30 09/21/18 15:29 Potassium Chloride (K-Dur) 40 meq Q6HR ORAL 09/01/18 12:00 09/29/18 11:59 09/01/18 13:23 Theophylline (George-Dur) 100 mg DAILY ORAL 08/28/18 09:00 09/22/18 08:59 09/01/18 09:07 Trazodone HCl (Desyrel) 100 mg BEDTIME ORAL 08/27/18 21:00 09/23/18 20:59 08/31/18 21:02 Vancomycin HCl (Vanco rx to dose) 1 ea DAILY PRN MISC Per rx protocol 08/27/18 16:00 09/26/18 15:59 Vancomycin HCl/ Dextrose 250 ml @ 125 mls/hr Q8H IVPB 09/01/18 02:00 09/06/18 01:59 09/01/18 11:01 Bill Dixon MD Sep 01, 2018 14:08
--- NOTE | 2018-09-01 14:13 | General Progress Note ---
Assessment/Plan Assessment/Plan (1) Lumbar DDD (2) Lumbar Spondylosis (3) Lumbar Radiculopathy (4) Morbid Obesity (5) Right knee pain (6) Right knee OA h/o ORIF At this time pain is controlled and orders have been placed by other health daycare provider. At this time pain management will signs off from patients care. D/w Dr. Magaña and he concurred. Subjective Date patient seen: Sep 01, 2018 Time patient seen: 01:10 - pm Allergies: Coded Allergies: ASPIRIN (Verified Allergy, Unknown, 07/14/18) KETOROLAC (Verified Allergy, Unknown, 07/14/18) PENICILLINS (Verified Allergy, Unknown, 07/14/18) Subjective REVIEW OF SYSTEMS: Denies rash, fever, chills, sweating, dizziness, drowsiness, blurred vision, sore throat, change in weight. No nausea, vomiting, diarrhea, or blood in the stool or urine. No bowel or bladder incontinence. No dysuria. He is complaining of low back pain and right lower extremity pain. SUBJECTIVE: Patient continues to c/o pain. Dilaudid was increased to 4mg IV Q3H PRN severe pain as per other physician. Objective Last 24 Hour Vital Signs Date Time Temp Pulse Resp B/P (MAP) Pulse Ox O2 Delivery O2 Flow Rate FiO2 09/01/18 09:34 Nasal Cannula 3.0 32 09/01/18 09:34 94 Nasal Cannula 3.0 32 09/01/18 09:34 99 20 Nasal Cannula 3.0 32 09/01/18 09:00 Room Air 09/01/18 08:00 97.9 107 20 144/83 (103) 96 09/01/18 04:00 98.0 103 22 117/71 (86) 94 103 09/01/18 00:00 98.6 105 20 139/83 (101) 95 105 08/31/18 22:21 101 20 98 Nasal Cannula 2.0 28 08/31/18 22:15 97 20 94 Nasal Cannula 3.0 32 08/31/18 21:00 Room Air 08/31/18 20:00 97.8 102 20 149/78 (101) 94 102 08/31/18 19:40 92 22 Nasal Cannula 3.0 32 08/31/18 19:40 93 Nasal Cannula 3.0 32 08/31/18 19:40 Nasal Cannula 3.0 32 08/31/18 16:19 98.2 08/31/18 16:00 97.6 75 20 149/89 (109) 97 20 Intake and Output 08/31/18 09/01/18 19:00 07:00 Intake Total 1010 ml 471 ml Output Total 2800 ml 1150 ml Balance -1790 ml -679 ml Intake Oral 600 ml IV Total 410 ml 471 ml Output Urine Total 2800 ml 1150 ml # Voids 6 Laboratory Tests 09/01/18 05:30: White Blood Count 6.4, Red Blood Count 3.84L, Hemoglobin 12.7L, Hematocrit 37.4L , Mean Corpuscular Volume 97, Mean Corpuscular Hemoglobin 33.1H, Mean Corpuscular Hemoglobin Concent 34.0, Red Cell Distribution Width 12.2, Platelet Count 170, Mean Platelet Volume 5.4L, Neutrophils (%) (Auto) 69.1, Lymphocytes ( %) (Auto) 21.7, Monocytes (%) (Auto) 7.1, Eosinophils (%) (Auto) 1.6, Basophils (%) (Auto) 0.5, Sodium Level 141, Potassium Level 2.9L, Chloride Level 99, Carbon Dioxide Level 36H, Anion Gap 6, Blood Urea Nitrogen 24H, Creatinine 1.3, Estimat Glomerular Filtration Rate 57.5, Glucose Level 140H, Calcium Level 8.6 Height (Feet): 5 Height (Inches): 11.00 Weight (Pounds): 495 Objective GENERAL: Alert, awake, and oriented x3. LUNGS: Decreased breath sounds bilaterally. HEART: S1 and S2, regular. ABDOMEN: Obese, tender ness to palpation with skin changes noted. EXTREMITIES: No cyanosis. No clubbing. No edema. NEURO: No Focal deficits. Eliezer Nicole Sep 01, 2018 14:13
--- NOTE | 2018-09-01 14:35 | NUR ---
REHAB P.T WEEKLY PROGRESS NOTES: PATIENT CURRENTLY PERFORMS ALL BED MOBILITY INDEPENDENTLY. PATIENT ABLE TO TRANSFER FROM SIT TO/FROM STAND, BED TO/FROM CHAIR WITH SBA/SUPERVISION. PATIENT AMBULATES WITHIN THE ROOM DISTANCES I.E BED TO/FROM BATHROOM W/O AN AD WITH AN AD WITH SBA/SUPERVISION AND ABLE TO AMBULATE LONG DISTANCES FROM ROOM TO HALLWAYS PROVIDED WITH FWW AND SBA/SUPERVISION. PATIENT CONTINUE TO BE LIMITED BY PAIN AND GENERALIZED SWELLING OF BLE RESULTING DIFFICULTY WITH OVERALL MOBILITIES. WILL CONTINUE WITH POC TO FURTHER ACHIEVE MOBILITY INDEPENDENCE AND SAFETY. RECOMMEND SNF AT D/C.
[2018-09-01 16:00] VITALS: BP 115/84
--- NOTE | 2018-09-01 17:15 | Progress Note ---
DATE: 09/01/2018 SUBJECTIVE: This is 52-year-old male patient. He has COPD, but he continues to have some mood lability. That is why, he does require inpatient treatment at this time. He does have some confusion, some disorganized thought process, but mostly high levels of anxiety. MENTAL STATUS EXAMINATION: This is a 52-year-old male. Appearance is normal. Affect, guarded and restricted. Intellect poor. Mood depressed and anxious. Motor activity, psychomotor agitation. Attention span is poor. Orientation x2. Speech is low volume and slurred. Thought process, disorganized. Thought content, he has some auditory hallucinations and paranoia. His insight and judgment is poor. DIAGNOSIS: Generalized anxiety disorder. PLAN: Continue to treat this patient with combination of Neurontin and trazodone and provide him with 20 minutes of cognitive behavior therapy to help him identify automatic negative thoughts and help him convert those negative thoughts to more positive thoughts to reduce depression and anxiety. Chart reviewed. Discussed with staff. Seen and assessed in room. Laney Mcghee M.D. DR: GEENA JOB#: [id number] CC:
--- NOTE | 2018-09-01 19:00 | NUR ---
NURSE NOTES: Patient is aware of NPO post midnight for US of abdomen. Attention was called by the patient to his room. Patient noted with oozing from his right leg open blisters. RN initiated protocol wound care and Dr. Nicole was informed and will inform ID.Proper skin care done.
--- NOTE | 2018-09-01 19:30 | NUR ---
HAND-OFF: Report given to MICAELA Mcgee. Ariella HINOJOSA endorsed to MICAELA Mcgee to hang the bag of Lasix after the other Lasix bag is finished.
--- NOTE | 2018-09-01 19:30 | NUR ---
HAND-OFF: Report given to MICAELA Mcgee. Addendum: 09/01/18 at 1937 by Ariella Barrett RN wrong entry
--- NOTE | 2018-09-01 19:40 | NUR ---
NURSE NOTES: Endorsed to Sylvia to take picture of right leg if possible.
--- NOTE | 2018-09-01 19:45 | NUR ---
NURSE NOTES: Dr. leblanc aware with no new order.
--- NOTE | 2018-09-01 19:50 | NUR ---
NURSE NOTES: patient received. patient in no acute distress at this time. patient complains of 10/10 pain at this time. see emar. patient awake alert and oriented x4. patient IV intact patent and asymptomatic. patient has bilateral lower extremity edema and cellulitis. also has edema on belly. patient has been told about being NPO after midnight. sign has been put on door and above bed. bed in lowest position and locked. call light within reach,. will continue to monitor.
[2018-09-01] MEDS: TraZODone 100mg tab ORAL SCH (19:54)
[2018-09-01] MEDS: Atorvastatin 80mg tab ORAL SCH (19:54)
[2018-09-01] MEDS: Dyna-Hex 2% Top Sol 2oz TOPIC SCH (19:59)
[2018-09-01 20:00] VITALS: BP 132/90
--- NOTE | 2018-09-01 20:46 | General Progress Note ---
Assessment/Plan Assessment/Plan ASSESSMENT/RECOMMENDATIONS # Anemia of chronic disease due to underlying chronic medical issues, multifactorial --> Order anemia panel as needed --> No evidence of hemolysis is noted, peripheral smear has been reviewed. --> Hgb goal >7. Transfuse prn. --> Epogen or iron at this time is not particularly indicated --> Medications have been reviewed # Thrombocytopenia - potential causes multifactorial, evaluate liver and viral etiologies to begin, also could be related to underlying medications patient has received. --> Hep panel and HIV negative --> US abd to evaluate for cirrhosis and hsm ordered --> Peripheral smear ordered to evaluate for blasts /schistocytes is wnl --> abx and other meds have been reviewed --> ok for ppx if plt >50k w/ either heparin or lovenox --->Transfuse if Plt < 20k and fever, or if Plt < 10k without fever # Sinus tachycardia, due to hypoxemia/breathing treatment. --> Most likely noncardiac chest pain. # History of chronic obstructive pulmonary disease. # Obesity hypoventilation syndrome. # History of seizure disorder. # Hypertension heart disease. # Hyperlipidemia. # Hypokalemic, K supplement given, am labs. The timing of this note does not necessarily reflect the time of the patient was seen Greatly appreciate consultation! Subjective Constitutional: Denies: no symptoms, chills, diaphoresis, fever, malaise, weakness, other HEENT: Denies: no symptoms, eye pain, blurred vision, tearing, double vision, ear pain, ear discharge, nose pain, nose congestion, throat pain, throat swelling, mouth pain, mouth swelling, other Cardiovascular: Denies: no symptoms, chest pain, edema, irregular heart rate, lightheadedness, palpitations, syncope, other Gastrointestinal/Abdominal: Denies: no symptoms, abdomen distended, abdominal pain, black stools, tarry stools, blood in stool, constipated, diarrhea, difficulty swallowing, nausea, poor appetite, poor fluid intake, rectal bleeding , vomiting, other Genitourinary: Denies: no symptoms, burning, discharge, frequency, flank pain, hematuria, incontinence, pain, urgency, other Neurologic/Psychiatric: Denies: no symptoms, anxiety, depressed, emotional problems, headache, numbness, paresthesia, pre-existing deficit, seizure, tingling, tremors, weakness, other Hematologic/Lymphatic: Denies: no symptoms, anemia, easy bleeding, easy bruising, other Allergies: Coded Allergies: ASPIRIN (Verified Allergy, Unknown, 07/14/18) KETOROLAC (Verified Allergy, Unknown, 07/14/18) PENICILLINS (Verified Allergy, Unknown, 07/14/18) Subjective 08/31: remains on abx, no f/c, no ns, remains with cellulitis on pannus abdomen 09/01: right leg wheeping blisters, on abx, seen by ID, ramin started Objective Last 24 Hour Vital Signs Date Time Temp Pulse Resp B/P (MAP) Pulse Ox O2 Delivery O2 Flow Rate FiO2 09/01/18 16:00 97.6 107 22 115/84 (94) 96 09/01/18 12:00 97.6 109 22 113/93 (100) 96 09/01/18 09:34 Nasal Cannula 3.0 32 09/01/18 09:34 94 Nasal Cannula 3.0 32 09/01/18 09:34 99 20 Nasal Cannula 3.0 32 09/01/18 09:00 Room Air 09/01/18 08:00 97.9 107 20 144/83 (103) 96 09/01/18 04:00 98.0 103 22 117/71 (86) 94 103 09/01/18 00:00 98.6 105 20 139/83 (101) 95 105 08/31/18 22:21 101 20 98 Nasal Cannula 2.0 28 08/31/18 22:15 97 20 94 Nasal Cannula 3.0 32 08/31/18 21:00 Room Air Intake and Output 08/31/18 09/01/18 18:59 06:59 Intake Total 1021 ml 471 ml Output Total 2800 ml 1150 ml Balance -1779 ml -679 ml Intake Oral 600 ml IV Total 421 ml 471 ml Output Urine Total 2800 ml 1150 ml # Voids 6 Laboratory Tests 09/01/18 05:30: White Blood Count 6.4, Red Blood Count 3.84L, Hemoglobin 12.7L, Hematocrit 37.4L , Mean Corpuscular Volume 97, Mean Corpuscular Hemoglobin 33.1H, Mean Corpuscular Hemoglobin Concent 34.0, Red Cell Distribution Width 12.2, Platelet Count 170, Mean Platelet Volume 5.4L, Neutrophils (%) (Auto) 69.1, Lymphocytes ( %) (Auto) 21.7, Monocytes (%) (Auto) 7.1, Eosinophils (%) (Auto) 1.6, Basophils (%) (Auto) 0.5, Sodium Level 141, Potassium Level 2.9L, Chloride Level 99, Carbon Dioxide Level 36H, Anion Gap 6, Blood Urea Nitrogen 24H, Creatinine 1.3, Estimat Glomerular Filtration Rate 57.5, Glucose Level 140H, Calcium Level 8.6 Height (Feet): 5 Height (Inches): 11.00 Weight (Pounds): 495 Objective PHYSICAL EXAMINATION: GENERAL: O2 NC, slightly anxious in bed, slight short of breath. VITAL SIGNS reviewed and are wnl CARDIOVASCULAR: No murmur. LUNGS: Poor exchange. ABDOMEN: Bowel sounds distant. EXTREMITIES: Show no cyanosis or clubbing. 1+ edema. R leg blisters NEUROLOGIC: The patient moves all extremities, slightly weak. Jay Wilson MD Sep 01, 2018 20:45
[2018-09-02] VITALS: BP 138/86
[2018-09-02] MEDS: Clindamycin 150mg cap ORAL SCH ×4 (00:10→18:15)
--- NOTE | 2018-09-02 00:48 | NUR ---
HAND-OFF: Report given to gio gonzales.
[2018-09-02] MEDS ORDERED: Albuterol/Ipratropium 3ml neb HHN PRN (02:00)
--- NOTE | 2018-09-02 03:08 | NUR ---
NURSE NOTES: Patient insists that he documents his own urine output. Explained to patient nurse needs to see his urine output for accurate documentation. patient continues to void and walk to the bathroom by himself and empty his urinal. Patient noncompliant despite education, and provides RN with his written calculation of his urine output.
[2018-09-02 04:00] VITALS: BP 135/92
[2018-09-02] MEDS: ceFAZolin 2gm/50ml Premix 50 ML IV SCH ×2 (05:06→14:04)
[2018-09-02 06:47] LABS: BASOPHILS % (AUTO) 0.6 % (0.0-2.0); EOSINOPHILS % (AUTO) 1.4 % (0.0-3.0); HEMATOCRIT 36.9 % (42.0-52.0); HEMOGLOBIN 12.6 G/DL (14.2-18.0); LYMPHOCYTES % (AUTO) 20.7 % (20.0-45.0); MEAN CORPUSCULAR VOLUME 96 FL (80-99); MONOCYTES % (AUTO) 8.7 % (1.0-10.0); NEUTROPHILS % (AUTO) 68.6 % (45.0-75.0); PLATELET COUNT 189 K/UL (150-450); RED BLOOD COUNT 3.83 M/UL (4.70-6.10)
[2018-09-02 07:03] LABS: ANION GAP 5 mmol/L (5-15); BLOOD UREA NITROGEN 21 mg/dL (7-18); CALCIUM 8.9 MG/DL (8.5-10.1); CARBON DIOXIDE 37 MMOL/L (21-32); CHLORIDE 100 MMOL/L (98-107); CREATININE 1.1 MG/DL (0.55-1.30); POTASSIUM 3.1 MMOL/L (3.5-5.1); SODIUM 142 MMOL/L (136-145)
--- NOTE | 2018-09-02 07:45 | NUR ---
NURSE NOTES: Received report from Judy HINOJOSA. On rounds patient is awake alert and oriented x4, sitting up in bed. IV Lasix running per order via LARRY PICC. No s/s acute distress, on 2L NC. NPO maintained for ultrasound today. Patient educated to inform RN when he urinates so RN can measure output, patient in agreement. RLE dressing assessed c/d/i. Fall and seizure precautions maintained, but patient refuses to have bed rails padded. Side rails upx3, bed low and locked, call light in reach. Will continue to monitor.
--- NOTE | 2018-09-02 07:50 | NUR ---
HAND-OFF: Report given to Caitlyn HINOJOSA.
[2018-09-02 08:00] VITALS: BP 146/89
[2018-09-02] MEDS: Vancomycin 1gm/D5W 275ml IVPB SCH ×4 (08:19→16:23)
[2018-09-02] MEDS: MS Contin 15mg tab ORAL SCH (09:40)
[2018-09-02] MEDS: Theophylline ER 100mg ORAL SCH (09:40)
--- NOTE | 2018-09-02 10:48 | Diagnostic Imaging Report ---
Indication:Abdominal pain Technique: Grayscale and duplex Doppler imaging of the abdomen performed. Comparison: None Findings: Hepatomegaly demonstrated with the liver measuring about 21 cm. There is no biliary ductal dilatation. The CBD is 5 mm. Gallbladder is grossly unremarkable. The pancreas is not well seen. Left kidney is not well seen. The spleen is borderline enlarged measuring close to 13 cm. There is no free fluid. There is no hydronephrosis. No obvious gallstones. Portal vein is patent by Doppler. There is fullness in the midpole of the right kidney not well imaged on this examination. Consider CT for further evaluation. IMPRESSION: Slight fullness in the area of the mid pole right kidney. This could be a prominent column of Loc seen. Underlying mass or cyst certainly possible but images are not adequate for the definitive evaluation on this examination. Consider CT with contrast material to evaluate this further. Hepatomegaly. Borderline splenomegaly. Limited evaluation as discussed
--- NOTE | 2018-09-02 11:00 | NUR ---
NURSE NOTES: Patient was evaluated by wound care nurse who redressed right leg vascular wound and wrapped legs bilaterally. Dressings are c/d/i. Will continue to monitor.
--- NOTE | 2018-09-02 11:23 | General Progress Note ---
Assessment/Plan Assessment/Plan ASSESSMENT/RECOMMENDATIONS # Anemia of chronic disease due to underlying chronic medical issues, multifactorial --> Order anemia panel as needed --> No evidence of hemolysis is noted, peripheral smear has been reviewed. --> Hgb goal >7. Transfuse prn. --> Epogen or iron at this time is not particularly indicated --> Medications have been reviewed # Thrombocytopenia - potential causes multifactorial, evaluate liver and viral etiologies to begin, also could be related to underlying medications patient has received. --> Hep panel and HIV negative --> US abd to evaluate for cirrhosis and hsm ordered --> Peripheral smear ordered to evaluate for blasts /schistocytes is wnl --> abx and other meds have been reviewed --> ok for ppx if plt >50k w/ either heparin or lovenox --->Transfuse if Plt < 20k and fever, or if Plt < 10k without fever # Sinus tachycardia, due to hypoxemia/breathing treatment. --> Most likely noncardiac chest pain. # History of chronic obstructive pulmonary disease. # Obesity hypoventilation syndrome. # History of seizure disorder. # Hypertension heart disease. # Hyperlipidemia. # Hypokalemic, K supplement given, am labs. The timing of this note does not necessarily reflect the time of the patient was seen Greatly appreciate consultation! Subjective Constitutional: Denies: no symptoms, chills, diaphoresis, fever, malaise, weakness, other HEENT: Denies: no symptoms, eye pain, blurred vision, tearing, double vision, ear pain, ear discharge, nose pain, nose congestion, throat pain, throat swelling, mouth pain, mouth swelling, other Cardiovascular: Denies: no symptoms, chest pain, edema, irregular heart rate, lightheadedness, palpitations, syncope, other Respiratory: Denies: no symptoms, cough, orthopnea, shortness of breath, SOB with excertion, SOB at rest, sputum, stridor, wheezing, other Endocrine: Denies: no symptoms, excessive sweating, flushing, intolerance to cold, intolerance to heat, increased hunger, increased thirst, increased urine, unexplained weight gain, unexplained weight loss, other Hematologic/Lymphatic: Denies: no symptoms, anemia, easy bleeding, easy bruising, other Allergies: Coded Allergies: ASPIRIN (Verified Allergy, Unknown, 07/14/18) KETOROLAC (Verified Allergy, Unknown, 07/14/18) PENICILLINS (Verified Allergy, Unknown, 07/14/18) Subjective 2/: remains on abx, no f/c, no ns, remains with cellulitis on pannus abdomen 09/01: right leg wheeping blisters, on abx, seen by ID, lasix started 09/02: awake, comfortable, on abx, UC today, no overnight events Objective Last 24 Hour Vital Signs Date Time Temp Pulse Resp B/P (MAP) Pulse Ox O2 Delivery O2 Flow Rate FiO2 09/02/18 09:20 94 Room Air 21 09/02/18 09:20 Room Air 21 09/02/18 09:20 105 18 Room Air 21 09/02/18 08:50 98.0 09/02/18 08:00 98.0 105 20 146/89 (108) 97 09/02/18 04:00 98.6 109 21 135/92 (106) 92 09/02/18 03:29 95 2.0 28 09/02/18 00:00 98.3 114 20 138/86 (103) 91 09/01/18 21:00 Room Air 09/01/18 20:00 97.9 120 21 132/90 (104) 92 09/01/18 20:00 Room Air 21 09/01/18 20:00 118 20 Room Air 21 09/01/18 20:00 93 Room Air 21 09/01/18 16:00 97.6 107 22 115/84 (94) 96 09/01/18 12:00 97.6 109 22 113/93 (100) 96 Intake and Output 09/01/18 09/02/18 19:00 07:00 Intake Total 530 ml 574 ml Output Total 2550 ml 3000 ml Balance -2020 ml -2426 ml Intake Oral 120 ml 480 ml IV Total 410 ml 94 ml Output Urine Total 2550 ml 3000 ml # Voids 2 4 # Bowel Movements 1 Laboratory Tests 09/02/18 00:00: Vancomycin Level Trough 26.7H 09/02/18 05:00: White Blood Count 7.0, Red Blood Count 3.83L, Hemoglobin 12.6L, Hematocrit 36.9L , Mean Corpuscular Volume 96, Mean Corpuscular Hemoglobin 33.0H, Mean Corpuscular Hemoglobin Concent 34.3, Red Cell Distribution Width 12.0, Platelet Count 189, Mean Platelet Volume 5.2L, Neutrophils (%) (Auto) 68.6, Lymphocytes ( %) (Auto) 20.7, Monocytes (%) (Auto) 8.7, Eosinophils (%) (Auto) 1.4, Basophils (%) (Auto) 0.6, Sodium Level 142, Potassium Level 3.1L, Chloride Level 100, Carbon Dioxide Level 37H, Anion Gap 5, Blood Urea Nitrogen 21H, Creatinine 1.1, Estimat Glomerular Filtration Rate > 60, Glucose Level 111H, Calcium Level 8.9 Height (Feet): 5 Height (Inches): 11.00 Weight (Pounds): 495 Objective PHYSICAL EXAMINATION: GENERAL: O2 NC, slightly anxious in bed, slight short of breath. VITAL SIGNS reviewed and are wnl CARDIOVASCULAR: No murmur. LUNGS: Poor exchange. ABDOMEN: Bowel sounds distant. EXTREMITIES: Show no cyanosis or clubbing. 1+ edema. R leg blisters NEUROLOGIC: The patient moves all extremities, slightly weak. Jay Wlison MD Sep 02, 2018 11:23
[2018-09-02 12:00] VITALS: BP_SYST 119; BP_SYST 139; BP_DIAS 70; BP_DIAS 90
[2018-09-02] MEDS: Sucralfate 1gm tab ORAL SCH ×2 (13:06→18:15)
--- NOTE | 2018-09-02 13:19 | Infectious Diseases Prog Note ---
Assessment/Plan Assessment/Plan 52 yo male with PMHx of Seizures, COPD and CHF who [facility]. Posterior neck mass \ Most likely inflamed lipoma per US read Unable to get MRI or CT so will continue abx as this will treat any cellulitic component of his inflamed pannus as well. No fever No leukocytosis 08/26/18 US neck shows possible lipoma Facial sores. Likely some sort of staph infection Sores seem to be healing. Pannus - Possible cellulitis developing Erythema of skin - Painful PLAN -Continue Vancomyin #8/10 - Continue Cefazolin #3 for more strep coverage - Monitor CBC and Temps We will continue to follow the patient during this hospitalization. Subjective Allergies: Coded Allergies: ASPIRIN (Verified Allergy, Unknown, 07/14/18) KETOROLAC (Verified Allergy, Unknown, 07/14/18) PENICILLINS (Verified Allergy, Unknown, 07/14/18) Subjective Afebrile No leukocytosis Objective Vital Signs Last 24 Hour Vital Signs Date Time Temp Pulse Resp B/P (MAP) Pulse Ox O2 Delivery O2 Flow Rate FiO2 09/02/18 12:14 98.0 09/02/18 12:00 98.0 103 20 119/70 (86) 97 09/02/18 10:10 98.0 09/02/18 09:20 94 Room Air 21 09/02/18 09:20 Room Air 21 09/02/18 09:20 105 18 Room Air 09/02/18 09:00 Nasal Cannula 2.0 09/02/18 08:00 98.0 105 20 146/89 (108) 97 09/02/18 04:00 98.6 109 21 135/92 (106) 92 09/02/18 03:29 95 2.0 28 09/02/18 00:00 98.3 114 20 138/86 (103) 91 09/01/18 21:00 Room Air 09/01/18 20:00 97.9 120 21 132/90 (104) 92 09/01/18 20:00 Room Air 21 09/01/18 20:00 118 20 Room Air 21 09/01/18 20:00 93 Room Air 21 09/01/18 16:00 97.6 107 22 115/84 (94) 96 Height (Feet): 5 Height (Inches): 11.00 Weight (Pounds): 495 Objective Gen: NAD HEENT: NCAT, MMM, EOMl LUNGS: CTAB, No W CARDS: RRR, S1, S2, No M/R/G, ABD: Soft, Obese, Enlarged pannus with mild erythema and TTP. No warmth. + BS Ext: Severe edema of feet, Pulses 2+ B/L (DP, Rad): NEURO: A/O x 4, Strength and Sensation Grossly intact SKIN: Small scabbed sores on for head and arms (healing) posterior left neck with 3-4cm area of pain with swelling. Erythema and warmth resolved Laboratory Tests Test 09/02/18 00:00 09/02/18 05:00 Vancomycin Level Trough 26.7 ug/mL (5.0-12.0) H White Blood Count 7.0 K/UL (4.8-10.8) Red Blood Count 3.83 M/UL (4.70-6.10) L Hemoglobin 12.6 G/DL (14.2-18.0) L Hematocrit 36.9 % (42.0-52.0) L Mean Corpuscular Volume 96 FL (80-99) Mean Corpuscular Hemoglobin 33.0 PG (27.0-31.0) H Mean Corpuscular Hemoglobin Concent 34.3 G/DL (32.0-36.0) Red Cell Distribution Width 12.0 % (11.6-14.8) Platelet Count 189 K/UL (150-450) Mean Platelet Volume 5.2 FL (6.5-10.1) L Neutrophils (%) (Auto) 68.6 % (45.0-75.0) Lymphocytes (%) (Auto) 20.7 % (20.0-45.0) Monocytes (%) (Auto) 8.7 % (1.0-10.0) Eosinophils (%) (Auto) 1.4 % (0.0-3.0) Basophils (%) (Auto) 0.6 % (0.0-2.0) Sodium Level 142 MMOL/L (136-145) Potassium Level 3.1 MMOL/L (3.5-5.1) L Chloride Level 100 MMOL/L (98-107) Carbon Dioxide Level 37 MMOL/L (21-32) H Anion Gap 5 mmol/L (5-15) Blood Urea Nitrogen 21 mg/dL (7-18) H Creatinine 1.1 MG/DL (0.55-1.30) Estimat Glomerular Filtration Rate > 60 mL/min (>60) Glucose Level 111 MG/DL (74-106) H Calcium Level 8.9 MG/DL (8.5-10.1) Current Medications Medications (Trade) Dose Ordered Sig/Luis Route PRN Reason Start Time Stop Time Status Last Admin Dose Admin Acetaminophen (Tylenol) 650 mg Q4H PRN ORAL FEVER 08/27/18 15:30 09/21/18 15:29 Acetaminophen/ Hydrocodone Bitart ([place] 10/325) 1 tab Q4H PRN ORAL pain 3-6 08/27/18 16:24 09/03/18 16:23 Albuterol/ Ipratropium (Albuterol/ Ipratropium) 3 ml Q4H PRN HHN Shortness of Breath 09/02/18 02:00 09/07/18 01:59 Atorvastatin Calcium (Lipitor) 80 mg BEDTIME ORAL 08/27/18 21:00 09/21/18 20:59 09/01/18 19:54 Cefazolin Sodium 50 ml @ 100 mls/hr Q8HR IV 08/31/18 06:00 09/07/18 05:59 09/02/18 05:06 Chlorhexidine Gluconate (Ruby-Hex 2%) 1 applic DAILY@2000 TOPIC 08/27/18 20:00 09/24/18 19:59 09/01/18 19:59 Clindamycin HCl (Cleocin) 450 mg EVERY 6 HOURS ORAL 08/31/18 18:00 09/07/18 17:59 09/02/18 12:21 Clopidogrel Bisulfate (Plavix) 75 mg DAILY ORAL 08/28/18 09:00 09/22/18 08:59 09/02/18 09:40 Furosemide 100 mg/ Dextrose 110 ml @ 11 mls/hr Q10H IV 08/27/18 16:00 09/24/18 15:59 09/02/18 12:20 Gabapentin (Neurontin) 600 mg THREE TIMES A DAY ORAL 08/27/18 18:00 09/22/18 08:59 09/02/18 13:07 Hydromorphone HCl (Dilaudid) 4 mg Q3H PRN IVP Severe Pain (Pain Scale 7-10) 08/31/18 16:02 09/02/18 16:01 09/02/18 11:44 Levetiracetam (Keppra) 500 mg Q12HR ORAL 08/30/18 09:00 09/29/18 08:59 09/02/18 09:40 Methocarbamol (Robaxin) 500 mg Q8H PRN ORAL muscle spasm 08/30/18 11:00 09/29/18 10:59 Morphine Sulfate (MS Contin) 15 mg Q12HR ORAL 08/30/18 10:45 09/06/18 10:44 09/02/18 09:40 Nitroglycerin (Ntg) 0.4 mg Q5M PRN SL Prn Chest Pain 08/27/18 15:30 09/21/18 15:29 Ondansetron HCl (Zofran) 4 mg Q6H PRN IVP Nausea & Vomiting 08/27/18 15:30 09/21/18 15:29 Pantoprazole (Protonix) 40 mg EVERY 12 HOURS ORAL 09/02/18 21:00 10/02/18 20:59 Polyethylene Glycol (Miralax) 17 gm DAILYPRN PRN ORAL Constipation 08/27/18 15:30 09/21/18 15:29 Potassium Chloride (K-Dur) 40 meq Q6HR ORAL 09/01/18 12:00 09/29/18 11:59 09/02/18 12:20 Sucralfate (Carafate) 1 gm FOUR TIMES A DAY ORAL 09/02/18 13:00 10/02/18 12:59 09/02/18 13:06 Theophylline (George-Dur) 100 mg DAILY ORAL 08/28/18 09:00 09/22/18 08:59 09/02/18 09:40 Trazodone HCl (Desyrel) 100 mg BEDTIME ORAL 08/27/18 21:00 09/23/18 20:59 09/01/18 19:54 Vancomycin HCl (Vanco rx to dose) 1 ea DAILY PRN MISC Per rx protocol 08/27/18 16:00 09/26/18 15:59 Vancomycin HCl 1 gm/Dextrose 275 ml @ 183.708 mls/hr Q8HR@0000,0800,1600 [facility] 09/02/18 08:00 09/07/18 07:59 09/02/18 08:19 Elliot Chauhan MD Sep 02, 2018 13:19
--- NOTE | 2018-09-02 13:45 | Pulmonology Progress Note ---
Assessment/Plan Problems: (1) ACS (acute coronary syndrome) (2) COPD (chronic obstructive pulmonary disease) (3) Right heart failure (4) Abdominal pannus (5) ADALBERTO (obstructive sleep apnea) (6) Seizures (7) Morbid obesity Assessment/Plan on dilaudid ov still diuresing a lot bipap prn at night cardiology f/u serial ekg, troponin watch bun/creatinine symptomatic treatment dvt prophylaxis titrate fio2 to saturation of 92% Subjective ROS Limited/Unobtainable: No Constitutional: Reports: no symptoms HEENT: Repors: no symptoms Allergies: Coded Allergies: ASPIRIN (Verified Allergy, Unknown, 07/14/18) KETOROLAC (Verified Allergy, Unknown, 07/14/18) PENICILLINS (Verified Allergy, Unknown, 07/14/18) Objective Last 24 Hour Vital Signs Date Time Temp Pulse Resp B/P (MAP) Pulse Ox O2 Delivery O2 Flow Rate FiO2 09/02/18 12:14 98.0 09/02/18 12:00 98.0 103 20 119/70 (86) 97 09/02/18 10:10 98.0 09/02/18 09:20 94 Room Air 21 09/02/18 09:20 Room Air 21 09/02/18 09:20 105 18 Room Air 21 09/02/18 09:00 Nasal Cannula 2.0 09/02/18 08:00 98.0 105 20 146/89 (108) 97 09/02/18 04:00 98.6 109 21 135/92 (106) 92 09/02/18 03:29 95 2.0 28 09/02/18 00:00 98.3 114 20 138/86 (103) 91 09/01/18 21:00 Room Air 09/01/18 20:00 97.9 120 21 132/90 (104) 92 09/01/18 20:00 Room Air 21 09/01/18 20:00 118 20 Room Air 21 09/01/18 20:00 93 Room Air 21 09/01/18 16:00 97.6 107 22 115/84 (94) 96 Intake and Output 09/01/18 09/02/18 19:00 07:00 Intake Total 530 ml 574 ml Output Total 2550 ml 3000 ml Balance -2020 ml -2426 ml Intake Oral 120 ml 480 ml IV Total 410 ml 94 ml Output Urine Total 2550 ml 3000 ml # Voids 2 4 # Bowel Movements 1 Objective General Appearance: WD/WN HEENT: normocephalic, mucous membranes moist Respiratory/Chest: chest wall non-tender, normal breath sounds Cardiovascular: normal peripheral pulses, normal rate, regular rhythm Abdomen: normal bowel sounds, soft, non tender Extremities: no cyanosis, massive edema Skin: + rash in lower extremities, clean dressing Microbiology Date/Time Source Procedure Growth Status 09/01/18 11:35 Skin Gram Stain - Final Resulted 09/01/18 11:35 Skin Wound Culture Pending Resulted Laboratory Tests 09/02/18 00:00: Vancomycin Level Trough 26.7H 09/02/18 05:00: White Blood Count 7.0, Red Blood Count 3.83L, Hemoglobin 12.6L, Hematocrit 36.9L , Mean Corpuscular Volume 96, Mean Corpuscular Hemoglobin 33.0H, Mean Corpuscular Hemoglobin Concent 34.3, Red Cell Distribution Width 12.0, Platelet Count 189, Mean Platelet Volume 5.2L, Neutrophils (%) (Auto) 68.6, Lymphocytes ( %) (Auto) 20.7, Monocytes (%) (Auto) 8.7, Eosinophils (%) (Auto) 1.4, Basophils (%) (Auto) 0.6, Sodium Level 142, Potassium Level 3.1L, Chloride Level 100, Carbon Dioxide Level 37H, Anion Gap 5, Blood Urea Nitrogen 21H, Creatinine 1.1, Estimat Glomerular Filtration Rate > 60, Glucose Level 111H, Calcium Level 8.9 Current Medications Medications (Trade) Dose Ordered Sig/Luis Route PRN Reason Start Time Stop Time Status Last Admin Dose Admin Acetaminophen (Tylenol) 650 mg Q4H PRN ORAL FEVER 08/27/18 15:30 09/21/18 15:29 Acetaminophen/ Hydrocodone Bitart ([place] 10/325) 1 tab Q4H PRN ORAL pain 3-6 08/27/18 16:24 09/03/18 16:23 Albuterol/ Ipratropium (Albuterol/ Ipratropium) 3 ml Q4H PRN HHN Shortness of Breath 09/02/18 02:00 09/07/18 01:59 Atorvastatin Calcium (Lipitor) 80 mg BEDTIME ORAL 08/27/18 21:00 09/21/18 20:59 09/01/18 19:54 Cefazolin Sodium 50 ml @ 100 mls/hr Q8HR IV 08/31/18 06:00 09/07/18 05:59 09/02/18 05:06 Chlorhexidine Gluconate (Ruby-Hex 2%) 1 applic DAILY@2000 TOPIC 08/27/18 20:00 09/24/18 19:59 09/01/18 19:59 Clindamycin HCl (Cleocin) 450 mg EVERY 6 HOURS ORAL 08/31/18 18:00 09/07/18 17:59 09/02/18 12:21 Clopidogrel Bisulfate (Plavix) 75 mg DAILY ORAL 08/28/18 09:00 09/22/18 08:59 09/02/18 09:40 Furosemide 100 mg/ Dextrose 110 ml @ 11 mls/hr Q10H IV 08/27/18 16:00 09/24/18 15:59 09/02/18 12:20 Gabapentin (Neurontin) 600 mg THREE TIMES A DAY ORAL 08/27/18 18:00 09/22/18 08:59 09/02/18 13:07 Hydromorphone HCl (Dilaudid) 4 mg Q3H PRN IVP Severe Pain (Pain Scale 7-10) 08/31/18 16:02 09/02/18 16:01 09/02/18 11:44 Levetiracetam (Keppra) 500 mg Q12HR ORAL 08/30/18 09:00 09/29/18 08:59 09/02/18 09:40 Methocarbamol (Robaxin) 500 mg Q8H PRN ORAL muscle spasm 08/30/18 11:00 09/29/18 10:59 Morphine Sulfate (MS Contin) 15 mg Q12HR ORAL 08/30/18 10:45 09/06/18 10:44 09/02/18 09:40 Nitroglycerin (Ntg) 0.4 mg Q5M PRN SL Prn Chest Pain 08/27/18 15:30 09/21/18 15:29 Ondansetron HCl (Zofran) 4 mg Q6H PRN IVP Nausea & Vomiting 08/27/18 15:30 09/21/18 15:29 Pantoprazole (Protonix) 40 mg EVERY 12 HOURS ORAL 09/02/18 21:00 10/02/18 20:59 Polyethylene Glycol (Miralax) 17 gm DAILYPRN PRN ORAL Constipation 08/27/18 15:30 09/21/18 15:29 Potassium Chloride (K-Dur) 40 meq Q6HR ORAL 09/01/18 12:00 09/29/18 11:59 09/02/18 12:20 Sucralfate (Carafate) 1 gm FOUR TIMES A DAY ORAL 09/02/18 13:00 10/02/18 12:59 09/02/18 13:06 Theophylline (George-Dur) 100 mg DAILY ORAL 08/28/18 09:00 09/22/18 08:59 09/02/18 09:40 Trazodone HCl (Desyrel) 100 mg BEDTIME ORAL 08/27/18 21:00 09/23/18 20:59 09/01/18 19:54 Vancomycin HCl (Vanco rx to dose) 1 ea DAILY PRN MISC Per rx protocol 08/27/18 16:00 09/26/18 15:59 Vancomycin HCl 1 gm/Dextrose 275 ml @ 183.708 mls/hr Q8HR@0000,0800,1600 IVPB 09/02/18 08:00 09/07/18 07:59 09/02/18 08:19 Bill Dixon MD Sep 02, 2018 13:45
--- NOTE | 2018-09-02 15:03 | Surgery Progress Note ---
Surgery Progress Note Subjective Additional Comments still with lots of pain. tolerating diet. on lasix gtt. still with edema. Objective Last 24 Hour Vital Signs Date Time Temp Pulse Resp B/P (MAP) Pulse Ox O2 Delivery O2 Flow Rate FiO2 09/02/18 12:14 98.0 09/02/18 12:00 98.0 103 20 119/70 (86) 97 09/02/18 10:10 98.0 09/02/18 09:20 94 Room Air 21 09/02/18 09:20 Room Air 21 09/02/18 09:20 105 18 Room Air 21 09/02/18 09:00 Nasal Cannula 2.0 09/02/18 08:00 98.0 105 20 146/89 (108) 97 09/02/18 04:00 98.6 109 21 135/92 (106) 92 09/02/18 03:29 95 2.0 28 09/02/18 00:00 98.3 114 20 138/86 (103) 91 09/01/18 21:00 Room Air 09/01/18 20:00 97.9 120 21 132/90 (104) 92 09/01/18 20:00 Room Air 21 09/01/18 20:00 118 20 Room Air 21 09/01/18 20:00 93 Room Air 21 09/01/18 16:00 97.6 107 22 115/84 (94) 96 I&O Intake and Output 09/01/18 09/02/18 19:00 07:00 Intake Total 530 ml 574 ml Output Total 2550 ml 3000 ml Balance -2020 ml -2426 ml Intake Oral 120 ml 480 ml IV Total 410 ml 94 ml Output Urine Total 2550 ml 3000 ml # Voids 2 4 # Bowel Movements 1 Dressing: other Wound: other Drains: other Cardiovascular: RSR Respiratory: decreased breath sounds Abdomen: distended, tenderness Extremities: edema, tenderness Laboratory Tests Test 09/02/18 00:00 09/02/18 05:00 Vancomycin Level Trough 26.7 ug/mL (5.0-12.0) H White Blood Count 7.0 K/UL (4.8-10.8) Red Blood Count 3.83 M/UL (4.70-6.10) L Hemoglobin 12.6 G/DL (14.2-18.0) L Hematocrit 36.9 % (42.0-52.0) L Mean Corpuscular Volume 96 FL (80-99) Mean Corpuscular Hemoglobin 33.0 PG (27.0-31.0) H Mean Corpuscular Hemoglobin Concent 34.3 G/DL (32.0-36.0) Red Cell Distribution Width 12.0 % (11.6-14.8) Platelet Count 189 K/UL (150-450) Mean Platelet Volume 5.2 FL (6.5-10.1) L Neutrophils (%) (Auto) 68.6 % (45.0-75.0) Lymphocytes (%) (Auto) 20.7 % (20.0-45.0) Monocytes (%) (Auto) 8.7 % (1.0-10.0) Eosinophils (%) (Auto) 1.4 % (0.0-3.0) Basophils (%) (Auto) 0.6 % (0.0-2.0) Sodium Level 142 MMOL/L (136-145) Potassium Level 3.1 MMOL/L (3.5-5.1) L Chloride Level 100 MMOL/L (98-107) Carbon Dioxide Level 37 MMOL/L (21-32) H Anion Gap 5 mmol/L (5-15) Blood Urea Nitrogen 21 mg/dL (7-18) H Creatinine 1.1 MG/DL (0.55-1.30) Estimat Glomerular Filtration Rate > 60 mL/min (>60) Glucose Level 111 MG/DL (74-106) H Calcium Level 8.9 MG/DL (8.5-10.1) Plan Problems: (1) Abdominal wall cellulitis Assessment & Plan: very fluid overloaded developing cellulitis of pannus and lower extremities. no abscess. pannus much larger than prior with erythema and edema and induration lower extremities with severe edema and blistering and cellulitis Lasix strict diet IV Abx keep legs elevated unfortunately no surgical intervention at this time. will need to follow closely for abscess development thank you (2) Abdominal pannus Gt Fernandez Sep 02, 2018 15:03
[2018-09-02] MEDS ORDERED: NS 275ml ONE (15:17)
[2018-09-02] MEDS ORDERED: Tubing IV Secondary IV ONE (15:17)
[2018-09-02 16:00] VITALS: BP 146/92
--- NOTE | 2018-09-02 16:15 | Progress Note ---
DATE: 09/02/2018 SUBJECTIVE: This is a 52-year-old male patient with chronic obstructive pulmonary disease. He states he continues to have some confusion, some disorganized thought process, and mood lability worsened by his stress of his medical illness. That is why, he does require inpatient treatment at this time , so he does require acute inpatient treatment at this time. He is endorsing feelings of helplessness, hopelessness, low energy , but mostly the problem with this patient gets anxiety and so his attending has requested daily psychiatric consultation to manage this patient's anxiety disorder. He has COPD. MENTAL STATUS EXAMINATION: This is a 52-year-old male. His appearance disheveled. Attitude, irritable and agitated. Affect, guarded and restricted. Intellect poor. Mood depressed and anxious. Motor activity, psychomotor agitation. Attention span is poor. Orientation x2. Speech is low volume, slurred. Thought process disorganized and logical. Thought content, auditory hallucinations and paranoid delusions. Insight and judgment is poor. DIAGNOSIS: For this patient is COPD. PLAN: For this patient is to treat him with medication such as trazodone for insomnia and Neurontin for anxiety to help reduce anxiety. Provided him with 20 minutes of cognitive behavioral therapy to help him identify automatic negative thoughts and to help him convert those negative thoughts to more positive thoughts to reduce depression, anxiety, and suicidality. 20 minutes of cognitive therapy provided. Chart reviewed. Discussed with staff. Seen and assessed at the bedside. Laney Mcghee M.D. DR: GEENA JOB#: [id number] CC:
--- NOTE | 2018-09-02 16:32 | General Progress Note ---
Assessment/Plan Problem List: (1) Peripheral edema ICD Codes: R60.9 - Edema, unspecified SNOMED: 859184225 (2) COPD (chronic obstructive pulmonary disease) ICD Codes: J44.9 - Chronic obstructive pulmonary disease, unspecified SNOMED: 18401786 Qualifiers: Qualified Codes: J44.9 - Chronic obstructive pulmonary disease, unspecified (3) Leg pain ICD Codes: M79.606 - Pain in leg, unspecified SNOMED: 21681931 (4) Morbid obesity ICD Codes: E66.01 - Morbid (severe) obesity due to excess calories SNOMED: 253416772 (5) Seizures ICD Codes: R56.9 - Unspecified convulsions SNOMED: 46213145 (6) Right heart failure ICD Codes: I50.810 - Right heart failure, unspecified SNOMED: 360984726 (7) ACS (acute coronary syndrome) ICD Codes: I24.9 - Acute ischemic heart disease, unspecified SNOMED: 128101517 (8) Abdominal pannus ICD Codes: E65 - Localized adiposity SNOMED: 7555269762976 (9) Abdominal wall cellulitis ICD Codes: L03.311 - Cellulitis of abdominal wall SNOMED: 46379016 Status: unchanged Assessment/Plan o2 pulm tx abx prn seizure pain control pt diet dc to ltach Subjective Constitutional: Reports: weakness Allergies: Coded Allergies: ASPIRIN (Verified Allergy, Unknown, 07/14/18) KETOROLAC (Verified Allergy, Unknown, 07/14/18) PENICILLINS (Verified Allergy, Unknown, 07/14/18) All Systems: reviewed and negative except above Subjective sitting sob Objective Last 24 Hour Vital Signs Date Time Temp Pulse Resp B/P (MAP) Pulse Ox O2 Delivery O2 Flow Rate FiO2 09/02/18 12:14 98.0 09/02/18 12:00 98.0 103 20 119/70 (86) 97 09/02/18 10:10 98.0 09/02/18 09:20 94 Room Air 21 09/02/18 09:20 Room Air 21 09/02/18 09:20 105 18 Room Air 21 09/02/18 09:00 Nasal Cannula 2.0 09/02/18 08:00 98.0 105 20 146/89 (108) 97 09/02/18 04:00 98.6 109 21 135/92 (106) 92 09/02/18 03:29 95 2.0 28 09/02/18 00:00 98.3 114 20 138/86 (103) 91 09/01/18 21:00 Room Air 09/01/18 20:00 97.9 120 21 132/90 (104) 92 09/01/18 20:00 Room Air 21 09/01/18 20:00 118 20 Room Air 21 09/01/18 20:00 93 Room Air 21 Intake and Output 09/01/18 09/02/18 19:00 07:00 Intake Total 530 ml 585 ml Output Total 2550 ml 3000 ml Balance -2020 ml -2415 ml Intake Oral 120 ml 480 ml IV Total 410 ml 105 ml Output Urine Total 2550 ml 3000 ml # Voids 2 4 # Bowel Movements 1 Laboratory Tests 09/02/18 00:00: Vancomycin Level Trough 26.7H 09/02/18 05:00: White Blood Count 7.0, Red Blood Count 3.83L, Hemoglobin 12.6L, Hematocrit 36.9L , Mean Corpuscular Volume 96, Mean Corpuscular Hemoglobin 33.0H, Mean Corpuscular Hemoglobin Concent 34.3, Red Cell Distribution Width 12.0, Platelet Count 189, Mean Platelet Volume 5.2L, Neutrophils (%) (Auto) 68.6, Lymphocytes ( %) (Auto) 20.7, Monocytes (%) (Auto) 8.7, Eosinophils (%) (Auto) 1.4, Basophils (%) (Auto) 0.6, Sodium Level 142, Potassium Level 3.1L, Chloride Level 100, Carbon Dioxide Level 37H, Anion Gap 5, Blood Urea Nitrogen 21H, Creatinine 1.1, Estimat Glomerular Filtration Rate > 60, Glucose Level 111H, Calcium Level 8.9 Height (Feet): 5 Height (Inches): 11.00 Weight (Pounds): 495 General Appearance: lethargic EENT: normal ENT inspection Neck: normal alignment Cardiovascular: normal peripheral pulses, normal rate, regular rhythm Respiratory/Chest: chest wall non-tender, decreased breath sounds Abdomen: normal bowel sounds, non tender, distended Extremities: swelling Edema: 2+ Arm (L), 2+ Arm (R), 2+ Leg (L), 2+ Leg (R), 2+ Pedal (L), 2+ Pedal ( R), 2+ Generalized Edema: mild edema Neurologic: responsive, motor weakness Skin: normal pigmentation, warm/dry Ernesto Nicole DO Sep 02, 2018 16:31
--- NOTE | 2018-09-02 16:57 | NUR ---
*-* DISCAHRGE PLANNED *-* PATIENT IS DISCHARGE TO: [facility] ROOM# 316-A [facility] T:[phone] ASK FOR HOUSE SUP FOR NURSE TO NURSE REPORT [facility] HAS BEEN ARRANGED FOR PICK AT [id number]
--- NOTE | 2018-09-02 17:19 | NUR ---
*-* DISCAHRGE PLANNED *-* PATIENT IS DISCHARGE TO: [facility] ROOM# 316[facility]A [facility] T:[phone] ASK FOR HOUSE SUP FOR NURSE TO NURSE REPORT [facility] HAS BEEN ARRANGED FOR PICK AT [id number] CCTRN REQUESTED
--- NOTE | 2018-09-02 18:42 | NUR ---
NURSE NOTES: Report given to Radha HINOJOSA at [facility].
--- NOTE | 2018-09-02 18:43 | Nephrology Progress Note ---
Assessment/Plan Assessment 1. Persistent hypokalemia, most likely renal loss. 2. Prerenal azotemia. 3. Fluid overload. 4. Cellulitis of abdominal wall and pannus. 5. Cellulitis of the lower extremity. 6.hypokalemia Plan replace k check mg daily wt check in and out put avoid NSAID Fluid restriction Subjective Subjective alert and awake c/o bilateral lower ext pain Objective Objective Last 24 Hour Vital Signs Date Time Temp Pulse Resp B/P (MAP) Pulse Ox O2 Delivery O2 Flow Rate FiO2 09/02/18 17:21 98.5 09/02/18 16:00 98.5 109 20 146/92 (110) 95 09/02/18 12:14 98.0 09/02/18 12:00 98.0 103 20 139/90 (106) 97 09/02/18 10:10 98.0 09/02/18 09:20 94 Room Air 21 09/02/18 09:20 Room Air 21 09/02/18 09:20 105 18 Room Air 21 09/02/18 09:00 Nasal Cannula 2.0 09/02/18 08:00 98.0 105 20 146/89 (108) 97 09/02/18 04:00 98.6 109 21 135/92 (106) 92 09/02/18 03:29 95 2.0 28 09/02/18 00:00 98.3 114 20 138/86 (103) 91 09/01/18 21:00 Room Air 09/01/18 20:00 97.9 120 21 132/90 (104) 92 09/01/18 20:00 Room Air 21 09/01/18 20:00 118 20 Room Air 21 09/01/18 20:00 93 Room Air 21 Intake and Output 09/01/18 09/02/18 18:59 06:59 Intake Total 530 ml 574 ml Output Total 2550 ml 3000 ml Balance -2020 ml -2426 ml Intake Oral 120 ml 480 ml IV Total 410 ml 94 ml Output Urine Total 2550 ml 3000 ml # Voids 2 4 # Bowel Movements 1 Laboratory Tests 09/02/18 00:00: Vancomycin Level Trough 26.7H 09/02/18 05:00: White Blood Count 7.0, Red Blood Count 3.83L, Hemoglobin 12.6L, Hematocrit 36.9L , Mean Corpuscular Volume 96, Mean Corpuscular Hemoglobin 33.0H, Mean Corpuscular Hemoglobin Concent 34.3, Red Cell Distribution Width 12.0, Platelet Count 189, Mean Platelet Volume 5.2L, Neutrophils (%) (Auto) 68.6, Lymphocytes ( %) (Auto) 20.7, Monocytes (%) (Auto) 8.7, Eosinophils (%) (Auto) 1.4, Basophils (%) (Auto) 0.6, Sodium Level 142, Potassium Level 3.1L, Chloride Level 100, Carbon Dioxide Level 37H, Anion Gap 5, Blood Urea Nitrogen 21H, Creatinine 1.1, Estimat Glomerular Filtration Rate > 60, Glucose Level 111H, Calcium Level 8.9 Height (Feet): 5 Height (Inches): 11.00 Weight (Pounds): 495 Objective HEAD AND NECK: No JVP. No LAD. No thyromegaly. Extraocular movement intact. Pupils are reactive to light and accommodation. LUNGS: Decreased breathing sound on both sides. CARDIAC: Regular rate and rhythm. S1-S2. No murmur. No rub. ABDOMEN: Obese and has enlarged pannus, which is red, is swollen and he also has some secretion from his belly button. EXTREMITIES: Both lower extremities have edema, increasing redness, chronic changes, left more than right. Misty Jonas MD Sep 02, 2018 18:43
--- NOTE | 2018-09-02 19:52 | NUR ---
NURSE NOTES: Patient discharged. Medication reconciliation done in paper format by michell Joel RN and placed in transfer packet. Dr. Nicole ordered for patient to be transported with PICC line and Lasix gtt. Patient belongings given to patient and signed for. Patient is being transported via [facility] ambulance. Report given to Shelia HINOJOSA of [facility] who reports they are waiting on a second crew to transport the patient. Report given to Jesse HINOJOSA, nightshift nurse. Patient is stable on endorsement.
--- NOTE | 2018-09-02 20:09 | NUR ---
NURSE NOTES: Received report from Caitlyn HINOJOSA. Pt on nathaniel being discharged, accompanied by transport nurse. Pt A&O x4, LARRY PICC intact&patent infusing Lasix.
--- NOTE | 2018-09-02 23:50 | Cardiology Progress Note ---
Assessment/Plan Assessment/Plan 1. Sinus tachycardia, due to hypoxemia/breathing treatment, resolved, CXR on the day of admission was negative except COPD changes. 2. Most likely noncardiac chest pain. Electrocardiography shows sinus rhythm with premature ventricular complexes with no acute ST and T-wave abnormalities. AMI is ruled out by negative CE. Beta-natriuretic peptide is also within normal limits. Echo reveals normal LV systolic and diastolic function with LVEF at 55% and normal pulmonary artery pressure. 3. History of chronic obstructive pulmonary disease. 4. Obesity hypoventilation syndrome. 5. History of seizure disorder. 6. Hypertension heart disease. 7. Hyperlipidemia. Subjective Subjective No cardiac events reported. Objective Last 24 Hour Vital Signs Date Time Temp Pulse Resp B/P (MAP) Pulse Ox O2 Delivery O2 Flow Rate FiO2 09/02/18 17:21 98.5 09/02/18 16:00 98.5 109 20 146/92 (110) 95 09/02/18 12:14 98.0 09/02/18 12:00 98.0 103 20 139/90 (106) 97 09/02/18 10:10 98.0 09/02/18 09:20 94 Room Air 21 09/02/18 09:20 Room Air 21 09/02/18 09:20 105 18 Room Air 21 09/02/18 09:00 Nasal Cannula 2.0 09/02/18 08:00 98.0 105 20 146/89 (108) 97 09/02/18 04:00 98.6 109 21 135/92 (106) 92 09/02/18 03:29 95 2.0 28 09/02/18 00:00 98.3 114 20 138/86 (103) 91 Intake and Output 09/01/18 09/02/18 18:59 06:59 Intake Total 530 ml 574 ml Output Total 2550 ml 3000 ml Balance -2020 ml -2426 ml Intake Oral 120 ml 480 ml IV Total 410 ml 94 ml Output Urine Total 2550 ml 3000 ml # Voids 2 4 # Bowel Movements 1 Laboratory Tests Test 09/02/18 00:00 09/02/18 05:00 Vancomycin Level Trough 26.7 ug/mL (5.0-12.0) H White Blood Count 7.0 K/UL (4.8-10.8) Red Blood Count 3.83 M/UL (4.70-6.10) L Hemoglobin 12.6 G/DL (14.2-18.0) L Hematocrit 36.9 % (42.0-52.0) L Mean Corpuscular Volume 96 FL (80-99) Mean Corpuscular Hemoglobin 33.0 PG (27.0-31.0) H Mean Corpuscular Hemoglobin Concent 34.3 G/DL (32.0-36.0) Red Cell Distribution Width 12.0 % (11.6-14.8) Platelet Count 189 K/UL (150-450) Mean Platelet Volume 5.2 FL (6.5-10.1) L Neutrophils (%) (Auto) 68.6 % (45.0-75.0) Lymphocytes (%) (Auto) 20.7 % (20.0-45.0) Monocytes (%) (Auto) 8.7 % (1.0-10.0) Eosinophils (%) (Auto) 1.4 % (0.0-3.0) Basophils (%) (Auto) 0.6 % (0.0-2.0) Sodium Level 142 MMOL/L (136-145) Potassium Level 3.1 MMOL/L (3.5-5.1) L Chloride Level 100 MMOL/L (98-107) Carbon Dioxide Level 37 MMOL/L (21-32) H Anion Gap 5 mmol/L (5-15) Blood Urea Nitrogen 21 mg/dL (7-18) H Creatinine 1.1 MG/DL (0.55-1.30) Estimat Glomerular Filtration Rate > 60 mL/min (>60) Glucose Level 111 MG/DL (74-106) H Calcium Level 8.9 MG/DL (8.5-10.1) Microbiology Date/Time Source Procedure Growth Status 09/01/18 11:35 Skin Gram Stain - Final Resulted 09/01/18 11:35 Skin Wound Culture Pending Resulted Objective HEENT: Atraumatic and normocephalic. Anicteric. Pupils are equal, round, and reactive to light and accommodation. Extraocular muscles intact. NECK: JVP less than 5 cm. No carotid bruit. Carotid upstrokes 2+ bilaterally. CVS: Normal S1, S2. Regular rate and rhythm. Tachycardiac. No murmurs, gallops , or rubs. LUNGS: Diminished breath sounds bilaterally. ABDOMEN: Large pannus. Cannot appreciate hepatosplenomegaly. Positive bowel sounds. EXTREMITIES: There is no evidence of edema, clubbing, or cyanosis. Carlos Martins MD Sep 02, 2018 23:50
--- NOTE | 2018-09-03 12:45 | Discharge Summary ---
Discharge Summary Discharge Summary _ DATE OF ADMISSION: 08/22/2018 DATE OF DISCHARGE: 09/02/2018 DISCHARGED BY: Dr. Ernesto Nicole CONSULTANTS: Dr. Bill Jackman [facility] COURSE: Patient is a 42-year-old male, who presented to ED via EMS for evaluation of chest pain. Patient is a resident of [facility]. He complained of acute chest pain that started at rest, unprovoked, and located on the left side of the chest radiating down to the left arm. Pain scale 8 out of 10. He was given nitroglycerin by EMS, however, did not help. He was recently discharged from the hospital. He denied any fever or chills. Denied cough. On evaluation at the ED, vital signs were stable. Blood work did not show any leukocytosis, hemoglobin and hematocrit were stable. Lactic acid normal. Troponin was 0.020. EKG done showed normal sinus rhythm with no ischemic changes. Chest x-ray showed low lung volumes with bronchovascular crowding; otherwise, no acute cardiopulmonary disease. He was then admitted to telemetry for evaluation of chest pain. Cardiac enzymes were monitored. He was given respiratory treatment. He was given antiplatelet therapy. He was continued on Lipitor 80 mg nightly. Cardiac evaluation was done. Patient had echocardiography on June 2018 that revealed normal LV systolic and diastolic function with LVEF approximately 55% and normal pulmonary artery pressure. Patient is morbidly obese with BMI of 52. He has obesity hypoventilation syndrome. He was recommended to have BiPAP qhs and prn, however, tried it but felt too much air is coming in. Pain management was consulted. He was started on morphine ER 15 mg p.o.q 12 hours ATC and Dilaudid 1 mg IV every 4 hours as needed. Psychiatric evaluation was done. Patient had extreme mood lability, confusion, disorganized thought process, and anxiety. 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 He was given Neurontin. He was given trazodone. Cardiac enzymes were negative. Patient most likely had noncardiac chest pain. AMI was ruled out. BNP was also within normal limits. He continued to complain of pain. Dilaudid dose was eventually increased. He was placed on fall precaution. Potassium was elevated to 5.2. He was given Lasix IV push. Patient claimed IVP does not work for him. PICC line was inserted. He was started on a Lasix drip. He complained of soreness and scabs over the forehead. ID was consulted for possible abscess on the forehead, arm and posterior neck. He was started on vancomycin for probable cellulitis. Ultrasound of the neck done showed a solid tissue 4 x 2 cm, encapsulated mass, isoechoic to surrounding subcutaneous fat. Patient was unable to get MRI or CT scan. Surgical evaluation was done. Patient was noted to have worsening edema/ cellulitis of bilateral lower extremity and pannus. Pannus was larger and with erythema and edema was with induration. Lower extremities showed severe edema with blistering and cellulitis. No acute surgical intervention was recommended. ID added Ancef for more strep coverage. He was provided with wound care. He was recommended leg elevation, however, patient was noncompliant. Patient had episodes of hypokalemia. Universal Grinder Operator was consulted. He was given potassium replacement. He was placed on fluid restriction. Unable to do accurate I &O as patient was noncompliant with urine output collection. Patient had an unwitnessed fall in the bathroom. X-ray of both knees was negative for acute bony trauma. he was continued on fall/safety precautions. He was noted to have anemia and thrombocytopenia. HIV and hepatitis panel were negative. Abdominal ultrasound showed hepatomegaly and borderline splenomegaly. No need for iron replacement or Epogen. He again had trauma to the right knee which he claimed hit the other patient's bed. X-ray of right knee was without fracture or dislocation. He had an episode of sinus tachycardia, possibly due to breathing treatment. He was in and out of . He was continued on diuresis. He was eventually transferred to [facility]. FINAL DIAGNOSES: Most likely noncardiac chest pain, chest pain possibly from costochondritis, present on admission Sinus tachycardia due to hypoxemia/breathing treatment COPD Obesity hypoventilation syndrome Seizure disorder Hypertensive heart disease Hyperlipidemia Persistent hypokalemia, most likely renal loss Prerenal azotemia Fluid overload Cellulitis of abdominal wall Cellulitis of bilateral lower extremity with referral edema Generalized anxiety disorder Morbid obesity Posterior neck mass, most likely inflamed lipoma per ultrasound Facial sores likely staph infection Anemia of chronic disease due to underlying chronic medical issues Thrombocytopenia, multifactorial Lumbar degenerative disc disease Lumbar spondylosis/lumbar radiculopathy DISPOSITION: Patient was transferred to [facility]. DISCHARGE MEDICATIONS: Refer to Discharge Medication List. I have been assigned to complete a discharge summary on this account, I was not involved with the patient's management. Melany Lantigua NP Sep 03, 2018 12:45
--- NOTE | 2018-09-03 15:57 | Diagnostic Imaging Report ---
APPROVED REPORT CPT Code: 81865 Present Symptoms Comments: Swelling Technically difficult study due to vessel depth ([id number]-hx-niwsdr thigh and calf area), BILATERAL: Imaging reveals a patent deep venous system bilaterally. There is no evidence of thrombus within the common femoral, and popliteal veins. The greater saphenous veins are also within normal limits. Doppler indicates normal spontaneous flow within these segments. The superficial femoral veins and calf veins were not imaged due to body habitus and pain.
--- NOTE | 2018-09-03 15:58 | Diagnostic Imaging Report ---
APPROVED REPORT CPT Code: 86505 Symptoms Comments: Comments Technically difficult study due to vessel depth (txhw-om-elvlis thigh and calf area), BILATERAL: Common femoral artery waveform analysis is within normal limits at rest. Color flow duplex sonography reveals patency of the popliteal arteries. There is no evidence of stenosis or occlusion within these segments. Doppler tibial artery waveform analysis is within normal limits bilaterally. The superficial femoral arteries and tibial arteries were not imaged due to body habitus and pain. Note Doppler waveforms are vasodilated, due to edema.
== END 2018-09-02 20:15 | DRG 206 ==
LOC: EDBD 17:30 → EMR 17:59 → EDBEDREQ 19:48 → 2E 20:54 → 4E 08-27 15:05
PROC: 02HV33Z Insertion of Infusion Device into Superior Vena Cava, Percutaneous Approach (ICD-10-PCS; principal; 2018-08-25)
PROC: B518ZZA Fluoroscopy of Superior Vena Cava, Guidance (ICD-10-PCS; principal; 2018-08-25)
DX: M94.0 Chondrocostal junction syndrome [Tietze] (principal); Z68.44 Body mass index [BMI] 60.0-69.9, adult; E66.2 Morbid (severe) obesity with alveolar hypoventilation; F33.9 Major depressive disorder, recurrent, unspecified; L03.311 Cellulitis of abdominal wall; L03.116 Cellulitis of left lower limb; L03.115 Cellulitis of right lower limb; L02.01 Cutaneous abscess of face; F20.0 Paranoid schizophrenia; N17.9 Acute kidney failure, unspecified; G40.909 Epilepsy, unspecified, not intractable, without status epilepticus; I11.0 Hypertensive heart disease with heart failure; I50.9 Heart failure, unspecified; J44.9 Chronic obstructive pulmonary disease, unspecified; F41.8 Other specified anxiety disorders; G89.29 Other chronic pain; B95.8 Unspecified staphylococcus as the cause of diseases classified elsewhere; D17.0 Benign lipomatous neoplasm of skin and subcutaneous tissue of head, face and neck; Z91.19 Patient's noncompliance with other medical treatment and regimen; E87.6 Hypokalemia; E87.70 Fluid overload, unspecified; D64.9 Anemia, unspecified; D69.6 Thrombocytopenia, unspecified; M25.561 Pain in right knee; R00.0 Tachycardia, unspecified; R09.02 Hypoxemia; E78.5 Hyperlipidemia, unspecified; G47.33 Obstructive sleep apnea (adult) (pediatric); M51.16 Intervertebral disc disorders with radiculopathy, lumbar region; M47.26 Other spondylosis with radiculopathy, lumbar region
CPT/HCPCS: 36415; 36569; 71045; 76700; 76937; 80048; 80053; 80061; 80202; 80299; 82550; 82553; 83735; 83880; 84443; 84484; 85007; 85025; 85610; 85730; 86140; 86703; 86705; 86709; 86803; 87070; 87081; 87205; 87340; 93005; 93306; 93925; 93970; 94640; 94664; 94760; 96374; 96375; 99285; J7620; J8499

== ENCOUNTER 2018-10-22 01:02 | Emergency (ER) | payer MEDICARE, MEDICAID ==
[~2018-10-22] VITALS: Ht 172.7 cm; Wt 181.4 kg
[~2018-10-22 01:02] MED LIST changes: +DUONEB 0.5-3(2.53 ML HHN; -DUONEB 0.5-3(2.53 ML NEBULIZ062; +THEO-24300 MG PO
--- NOTE | 2018-10-22 01:11 | NUR ---
ED Nurse Note: Patient biba RA 66 from [facility] states that he has not been getting the right medications. denies any pain. Pt is AO x 4times, VSS, on room air no distress. ERMD seen Pt at bedside.
--- NOTE | 2018-10-22 01:27 | Emergency Room Report ---
History of Present Illness General Chief Complaint: General Complaint Source: Patient, Medical Record, EMS Present Illness HPI This is a 53-year-old male with a history of morbid obesity, COPD, chronic pain. He presents with chief complaint of shortness of breath. He was recently at [facility] and was discharged to [facility]. And arrival , he said he didn't want to be there. He had been there before and did not like it. He had a couple cigarettes a complaint of short of breath. Denies any fever chills but denies any nausea vomiting. Nothing made it better. And exertion made it worse. Similar symptom in the past. Denies any chest pain. Denies any nausea vomiting. Allergies: Coded Allergies: ASPIRIN (Verified Allergy, Unknown, 07/14/18) KETOROLAC (Verified Allergy, Unknown, 07/14/18) PENICILLINS (Verified Allergy, Unknown, 07/14/18) Patient History Past Medical History: see triage record, old chart reviewed Past Surgical History: other Pertinent Family History: none Social History: Denies: smoking Immunizations: other Reviewed Nursing Documentation: PMH: Agreed; PSxH: Agreed Nursing Documentation-PMH Past Medical History: No History, Except For Hx Cardiac Problems: Yes - CHF Hx Hypertension: Yes Hx COPD: Yes Hx Cancer: No Hx Gastrointestinal Problems: Yes Hx Neurological Problems: Yes Hx Seizures: Yes - EPILEPSY Review of Systems Eye: Denies: eye pain, blurred vision ENT: Denies: ear pain, nose congestion, throat swelling Respiratory: Reports: shortness of breath; Denies: cough Cardiovascular: Denies: chest pain, palpitations Gastrointestinal: Denies: abdominal pain, diarrhea, nausea, vomiting Musculoskeletal: Denies: back pain, joint pain Skin: Denies: rash Neurological: Denies: headache, numbness Endocrine: Denies: increased thirst, increased urine Hematologic/Lymphatic: Denies: easy bruising All Other Systems: negative except mentioned in HPI Physical Exam Vital Signs Date Time Temp Pulse Resp B/P (MAP) Pulse Ox O2 Delivery O2 Flow Rate FiO2 10/22/18 01:05 98.2 80 19 138/80 98 Room Air vitals normal Sp02 EP Interpretation: reviewed, normal General Appearance: well appearing, no apparent distress, alert, obese Head: normocephalic, atraumatic Eyes: bilateral eye PERRL, bilateral eye EOMI ENT: hearing grossly normal, normal pharynx Neck: full range of motion, supple, no meningismus Respiratory: chest non-tender, wheezing Cardiovascular #1: regular rate, rhythm, no murmur Gastrointestinal: normal bowel sounds, non tender, no mass, no organomegaly, no bruit, non-distended Musculoskeletal: back normal, other - Chronic lymphedema Neurologic: alert, oriented x3 Psychiatric: mood/affect normal Skin: warm/dry Medical Decision Making Diagnostic Impression: Primary Impression: COPD (chronic obstructive pulmonary disease) Qualified Codes: J44.1 - Chronic obstructive pulmonary disease with (acute) exacerbation Additional Impression: Morbid obesity ER Course Patient with morbid obesity and COPD exacerbation. Wheezing improve after that lasted treatment. Patient claimed that he [facility]. Explained to him that he just got there for 2 hours. They need orders and pharmacy to fill the medication for this. Last Vital Signs Date Time Temp Pulse Resp B/P (MAP) Pulse Ox O2 Delivery O2 Flow Rate FiO2 10/22/18 01:05 98.2 80 19 138/80 98 Room Air Status: improved Disposition: [facility] SN[facility] Condition: Stable Additional Instructions: Follow-up with your doctor in 7 days. Return if symptom worsen. Nathaniel Lion MD Oct 22, 2018 01:27
[2018-10-22] MEDS ORDERED: Albuterol ud Inhalation HHN ONE (01:30)
[2018-10-22] MEDS ORDERED: Ipratropium 0.02% Inh Soln 2.5ml UD HHN ONE (01:30)
--- NOTE | 2018-10-22 01:35 | NUR ---
ED Nurse Note: Breathing treatment at bedside.
[2018-10-22 01:36] VITALS: BP 148/88
[2018-10-22 02:30] VITALS: BP 145/78
--- NOTE | 2018-10-22 02:30 | NUR ---
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 Pt is AO x 4times, VSS, on room air no distress. Pt states he doesn't want to go back SNF. Inform Pt SNF is the only place will accept Pt now but Pt still refused. EMT talked to Pt and Pt finally accept go back SNF. ID bend removed, all belongings given to pt. Pt will arrive [facility] in 40 minutes.
[2018-10-22 02:35] VITALS: BP 145/78
--- NOTE | 2018-10-22 02:35 | NUR ---
ED Nurse Note: Report given to Daya Alcala.
== END 2018-10-22 02:35 ==
LOC: EDBD 01:02 → EDUNIT# 01:02 → EMR 01:15
DX: J44.1 Chronic obstructive pulmonary disease with (acute) exacerbation (principal); I11.0 Hypertensive heart disease with heart failure; I50.9 Heart failure, unspecified; Z88.6 Allergy status to analgesic agent; Z88.0 Allergy status to penicillin
CPT/HCPCS: 94640; 94664; 99284

== ENCOUNTER 2018-10-26 21:15 | Emergency (ER) | payer MEDICARE, MEDICAID ==
[~2018-10-26] VITALS: Ht 182.9 cm; Wt 238.1 kg
[2018-10-26 21:27] VITALS: BP 144/115
--- NOTE | 2018-10-26 21:30 | NUR ---
ED Nurse Note: Patient was brought by RA from residential due to chest pain. Per patient he was trying to do his power walking and suddenly he starts having SOB and chest pain. Nitroglycerin were given by paramedics but it did not help. AAO x4, VSS at this time, skin is dry, intact, warm to touch. Will continue to monitor.
--- NOTE | 2018-10-26 21:43 | Emergency Room Report ---
History of Present Illness General Chief Complaint: Chest Pain Source: Patient, Medical Record, EMS Present Illness HPI This is a 53-year-old male who is morbidly obese. He has a history of COPD and hypertension. He presents with chief point of chest pain. He said pain started about an hour ago. He was doing his "power walk." He bent down and developed left sided chest pain going on left arm. Pain is 8 out of 10. Nothing made it better. Nothing made it worse. Rest does not make it better. He called 911. EMS gave him 3 nitroglycerin without any relief. No fever chills but no nausea no vomiting. Similar symptom in the past. He was admitted here in August and had negative troponins and normal echocardiogram. Allergies: Coded Allergies: ASPIRIN (Verified Allergy, Unknown, 07/14/18) KETOROLAC (Verified Allergy, Unknown, 07/14/18) PENICILLINS (Verified Allergy, Unknown, 07/14/18) Patient History Past Medical History: see triage record, old chart reviewed, HTN Past Surgical History: other Pertinent Family History: none Social History: Denies: smoking Immunizations: other Reviewed Nursing Documentation: PMH: Agreed; PSxH: Agreed Nursing Documentation-PMH Past Medical History: No History, Except For Hx Cardiac Problems: Yes - CHF Hx Hypertension: Yes Hx COPD: Yes Hx Cancer: No Hx Gastrointestinal Problems: Yes Hx Neurological Problems: Yes Hx Seizures: Yes - EPILEPSY Review of Systems Eye: Denies: eye pain, blurred vision ENT: Denies: ear pain, nose congestion, throat swelling Respiratory: Reports: shortness of breath; Denies: cough Cardiovascular: Reports: chest pain; Denies: palpitations Gastrointestinal: Denies: abdominal pain, diarrhea, nausea, vomiting Musculoskeletal: Denies: back pain, joint pain Skin: Denies: rash Neurological: Denies: headache, numbness Endocrine: Denies: increased thirst, increased urine Hematologic/Lymphatic: Denies: easy bruising All Other Systems: negative except mentioned in HPI Physical Exam Vital Signs Date Time Temp Pulse Resp B/P (MAP) Pulse Ox O2 Delivery O2 Flow Rate FiO2 10/26/18 21:12 99.3 85 18 144/115 97 Room Air vitals with high blood pressure Sp02 EP Interpretation: reviewed, normal General Appearance: well appearing, no apparent distress, alert, obese Head: normocephalic, atraumatic Eyes: bilateral eye PERRL, bilateral eye EOMI ENT: hearing grossly normal, normal pharynx Neck: full range of motion, supple, no meningismus Respiratory: chest non-tender, lungs clear, normal breath sounds Cardiovascular #1: regular rate, rhythm, no murmur Gastrointestinal: normal bowel sounds, non tender, no mass, no organomegaly, no bruit, non-distended Musculoskeletal: back normal, swelling - Chronic lymphedema Neurologic: alert, oriented x3 Psychiatric: mood/affect normal Skin: warm/dry Medical Decision Making Diagnostic Impression: Primary Impression: Chest pain Qualified Codes: R07.9 - Chest pain, unspecified Additional Impressions: Morbid obesity Leg pain Qualified Codes: M79.604 - Pain in right leg; M79.605 - Pain in left leg ER Course Patient presents with chest pain. This seemed to be a chronic complaint. He does have slight wheezing which resolved with treatment. He refuse further treatment unless he get IV Dilaudid. I told him that I'm not comfortable giving him IV pain medication since he has chronic pain. I offer him oral medication which he refused. He was admitted here last month with a normal echocardiogram. EKG normal. First troponin negative. He refuse further IV blood draw. Patient called Dr. Nicole's answering service several times and claimed that he spoke with the doctor. Claimed that he is supposed to get IV pain medication. This is an obvious lie. Since patient is not getting pain medication, he said he [facility] back [facility]. I will discharge the patient back to jail. I contacted Dr. Nicole to let him know. Lab Results Impression labs normal EKG Diagnostic Results Rate: normal Rhythm: NSR ST Segments: no acute changes Rhythm Strip Diag. Results EP Interpretation: yes Rate: 80 Rhythm: NSR, no PVC's Chest X-Ray Diagnostic Results Chest X-Ray Diagnostic Results : Chest X-Ray Ordered: Yes # of Views/Limited/Complete: 1 View Indication: Chest Pain EP Interpretation: Yes Interpretation: no consolidation, no effusion, no pneumothorax, no acute cardiopulmonary disease Impression: No acute disease Electronically Signed by: Nathaniel Lion MD Last Vital Signs Date Time Temp Pulse Resp B/P (MAP) Pulse Ox O2 Delivery O2 Flow Rate FiO2 10/26/18 21:27 85 18 Room Air 10/26/18 21:27 99.3 144/115 97 Status: improved Disposition: [facility] SNF Condition: Stable Patient Instructions: Nonspecific Chest Pain Additional Instructions: Follow-up with your doctor in 7 days. Return if symptom worsen. Nathaniel Lion MD Oct 26, 2018 21:43
[2018-10-26] MEDS ORDERED: Albuterol ud Inhalation HHN ONE (21:45)
[2018-10-26 23:04] LABS: BASOPHILS % (AUTO) 1.1 % (0.0-2.0); EOSINOPHILS % (AUTO) 3.4 % (0.0-3.0); HEMOGLOBIN 12.3 G/DL (14.2-18.0); LYMPHOCYTES % (AUTO) 37.2 % (20.0-45.0); MEAN CORPUSCULAR VOLUME 94 FL (80-99); MONOCYTES % (AUTO) 6.6 % (1.0-10.0); NEUTROPHILS % (AUTO) 51.7 % (45.0-75.0); PLATELET COUNT 246 K/UL (150-450); RED BLOOD COUNT 3.94 M/UL (4.70-6.10); RED CELL DISTRIBUTION WIDTH 13.5 % (11.6-14.8); WHITE BLOOD COUNT 7.7 K/UL (4.8-10.8)
[2018-10-26 23:18] LABS: ANION GAP 8 mmol/L (5-15); BLOOD UREA NITROGEN 19 mg/dL (7-18); CALCIUM 8.9 MG/DL (8.5-10.1); CARBON DIOXIDE 29 MMOL/L (21-32); CHLORIDE 107 MMOL/L (98-107); CREATININE 1.1 MG/DL (0.55-1.30); POTASSIUM 4.1 MMOL/L (3.5-5.1); SODIUM 144 MMOL/L (136-145)
[2018-10-26] MEDS ORDERED: HYDROcodone/Acetamin 5/325 tab ORAL ONE (23:30)
--- NOTE | 2018-10-26 23:30 | NUR ---
ED Nurse Note: Pt refusing po analgesia, asking for morphine instead. Dr. Lion aware. Pt stating he is going to leave. Daya Locke called, they will not accept him back if he AMA's. Dr. Lion informed.
[2018-10-26 23:31] LABS: ALANINE AMINOTRANSFERASE 21 U/L (12-78); ALBUMIN 3.3 G/DL (3.4-5.0); ALBUMIN/GLOBULIN RATIO 0.8 (1.0-2.7); ALKALINE PHOSPHATASE 138 U/L (46-116); ASPARTATE AMINO TRANSFERASE 25 U/L (15-37); BILIRUBIN,TOTAL 0.5 MG/DL (0.2-1.0); CKMB 1.4 NG/ML (0.0-3.6); CREATINE KINASE 163 U/L (26-308)
[2018-10-27 00:10] VITALS: BP 144/115
--- NOTE | 2018-10-27 01:00 | NUR ---
ED Nurse Note: Refusing repeat Troponin, in spite of patient teaching.
--- NOTE | 2018-10-27 01:06 | NUR ---
ED Nurse Note: PATIENT HAS INAPPROPRIATE BEHAVIOR. KEEP ASKING FOR MORPHINE IV, SCREAMING, ASSAULTING THE ERDR, ASKING TO BE TRANSFERED TO ANOTHER HOSPITAL.
--- NOTE | 2018-10-27 01:20 | NUR ---
ED Nurse Note: Pt is more and more upset, screaming loudly, threatening to do harm to Dr. Lion, "I don't want to be in the same building as him." Pt wants to wait in the lobby for his ambulance ride, security at bedside - pt to remain in room 6 until ambulance arrives.
[2018-10-27 02:15] VITALS: BP 145/86
--- NOTE | 2018-10-27 02:38 | NUR ---
ED Nurse Note: Spoke with Evie at [facility] to inform her that patient is returning.
--- NOTE | 2018-10-27 03:01 | NUR ---
ED Nurse Note: Pt cleared by health care Provider for discharge. DC instructions/prescription was given and explained to pt and verbalized understanding of teachings. All medical deviecs such as ID band and IV removed without complication. Pt is AAO x4, barely ambulatory and left with all personal belongings.
--- NOTE | 2018-10-27 10:34 | Diagnostic Imaging Report ---
Indication: Chest pain Technique: One view of the chest Comparison: 08/22/2018 Findings: Body habitus limits evaluation. The heart is borderline enlarged. No definite acute infiltrates, effusions, or congestion. No significant interim change Impression: Cardiomegaly. No acute process
--- NOTE | 2018-10-27 18:25 | Cardiology Report ---
APPROVED REPORT EKG Measurement Heart [id number] Normal sinus rhythm Junctional ST depression, probably normal Borderline ECG
== END 2018-10-27 01:50 ==
LOC: EDBD 21:15 → EMR 21:27
DX: R07.9 Chest pain, unspecified (principal); E66.01 Morbid (severe) obesity due to excess calories; M79.604 Pain in right leg; M79.605 Pain in left leg; J44.9 Chronic obstructive pulmonary disease, unspecified; Z88.6 Allergy status to analgesic agent; Z88.0 Allergy status to penicillin; I11.0 Hypertensive heart disease with heart failure; I50.9 Heart failure, unspecified; G40.909 Epilepsy, unspecified, not intractable, without status epilepticus; Z68.45 Body mass index [BMI] 70 or greater, adult
CPT/HCPCS: 36415; 71045; 80053; 82550; 82553; 84484; 85025; 93005; 94640; 94664; 99284

== ENCOUNTER 2018-12-14 16:34 | Inpatient (IN) | payer MEDICARE, MEDICAID ==
[~2018-12-14] VITALS: Ht 177.8 cm; Wt 224.5 kg
[~2018-12-14 16:34] MED LIST changes: -DUONEB 0.5-3(2.53 ML HHN; +DUONEB 0.5-3(2.53 ML NEBULIZ062
--- NOTE | 2018-12-14 16:44 | NUR ---
ED Nurse Note: pt states he has had left arm weakness x [address]. md garcia pt. pt a/ox4 no cp/n/v// dyspnea. plan of care discussed wtih pt by . placed on monitor.
--- NOTE | 2018-12-14 17:00 | NUR ---
called [facility] who instructed that he is 488 lbs weight unable to accomodate forthe ct instructed that most probably dont know who has open ct scanner. and also said keila at [facility] has the open ct scanner. will call keila
--- NOTE | 2018-12-14 17:09 | NUR ---
ED Nurse Note: pt with iv started but unable to obtain labs. phleb here to obtain labs. pt relates total body joint pain, requests pain meds. pt with slightly slurred speech aware. pt with left arm "can't move it" pain to left arm when rn moves arm. right arm strength wnl. pt states no wounds
[2018-12-14 17:10] VITALS: BP 130/84
--- NOTE | 2018-12-14 17:30 | NUR ---
called [facility] spoke to [facility] regarding the open ct scan . spoke to rosanna and the cordinator who instructed that i shoukld call [facility] and they should help me to transfer or have an open ct scanner
[2018-12-14] MEDS ORDERED: Morphine Sulfate 4mg/ml Inj (IV USE ONLY) IVP ONE (17:45)
[2018-12-14 17:47] LABS: BASOPHILS % (AUTO) 0.8 % (0.0-2.0); EOSINOPHILS % (AUTO) 0.8 % (0.0-3.0); HEMATOCRIT 45.2 % (42.0-52.0); HEMOGLOBIN 15.4 G/DL (14.2-18.0); MEAN CORPUSCULAR VOLUME 89 FL (80-99); MONOCYTES % (AUTO) 7.2 % (1.0-10.0); NEUTROPHILS % (AUTO) 55.2 % (45.0-75.0); PLATELET COUNT 197 K/UL (150-450); RED BLOOD COUNT 5.07 M/UL (4.70-6.10); RED CELL DISTRIBUTION WIDTH 12.2 % (11.6-14.8); WHITE BLOOD COUNT 7.3 K/UL (4.8-10.8)
[2018-12-14 17:54] VITALS: BP 115/80
--- NOTE | 2018-12-14 17:55 | NUR ---
ED Nurse Note: pt without increased pain, morphine given
[2018-12-14 18:00] LABS: ANION GAP 9 mmol/L (5-15); BLOOD UREA NITROGEN 17 mg/dL (7-18); CALCIUM 8.7 MG/DL (8.5-10.1); CARBON DIOXIDE 25 MMOL/L (21-32); CHLORIDE 106 MMOL/L (98-107); CREATININE 1.1 MG/DL (0.55-1.30); POTASSIUM 4.6 MMOL/L (3.5-5.1); SODIUM 140 MMOL/L (136-145)
[2018-12-14 18:14] LABS: ALANINE AMINOTRANSFERASE 31 U/L (12-78); ALBUMIN 3.2 G/DL (3.4-5.0); ALBUMIN/GLOBULIN RATIO 0.9 (1.0-2.7); ALKALINE PHOSPHATASE 116 U/L (46-116); ASPARTATE AMINO TRANSFERASE 33 U/L (15-37); BILIRUBIN,TOTAL 0.4 MG/DL (0.2-1.0); CKMB 0.6 NG/ML (0.0-3.6); CREATINE KINASE 74 U/L (26-308)
--- NOTE | 2018-12-14 18:16 | NUR ---
ED Nurse Note: per meteorologist in charge aware of need for large bed for pt.
--- NOTE | 2018-12-14 18:20 | Diagnostic Imaging Report ---
Indication: Dyspnea Comparison: 10/26/2018 A single view chest radiograph was obtained. Findings: Cardiomediastinal appearance is within normal limits for age. The lungs are clear. Pulmonary vascularity is appropriate. The diaphragmatic contour is smooth and costophrenic angles are sharp. No pleural effusions are identified. The bones are unremarkable. Impression: No acute findings
--- NOTE | 2018-12-14 18:30 | NUR ---
ED Nurse Note: pt able to lift up left arm at this time, states its hard and arm hurts. no new s/s
--- NOTE | 2018-12-14 18:45 | NUR ---
ED Nurse Note: pt relates no real change in pain, sleeping in room without rn intervention. pt requests po juice
[2018-12-14 18:51] VITALS: BP 114/76
--- NOTE | 2018-12-14 19:19 | NUR ---
ED Nurse Note: report given to rn jung. pt awaiting bed assignment
--- NOTE | 2018-12-14 19:25 | NUR ---
ED Nurse Note: RECIEVED REPORT FROM AM NURSE TO RESUME CARE, PT IN BED AWAKE, ALERT AND ORIENTED X 4, PT WAITING FOR ROOM PLACEMENT FOR HOSPITAL ADMISSION, PT HERE FOR R/O CVA, PT C/O WEAKNESS IN LEFT UPPER ARM, NO FACIAL DROOP NOTED, PERRLA, PT EATING WITH NO COMPLICATIONS, WILL RESUME CARE ORDERED AND CONTINUE TO CLOSELY MONITOR.
--- NOTE | 2018-12-14 19:31 | Emergency Room Report ---
History of Present Illness General Chief Complaint: General Complaint Source: Patient, EMS Present Illness HPI 53-year-old male presents ED for evaluation. Brought in by EMS from shelter facility. Patient was triaged as behavioral complaint however patient is complaining of left sided pain and weakness for the last 2 days. Pain is dull, 7 out of 10, nonradiating. States he thinks he is having a stroke. Denies slurred speech or facial droop. No other aggravating relieving factors. Denies any other associated symptoms Allergies: Coded Allergies: ASPIRIN (Verified Allergy, Unknown, 07/14/18) KETOROLAC (Verified Allergy, Unknown, 07/14/18) PENICILLINS (Verified Allergy, Unknown, 07/14/18) Uncoded Allergies: PENICILIN (Allergy, Unknown, 12/14/18) Patient History Past Medical History: COPD, seizures Past Surgical History: none Pertinent Family History: none Social History: Denies: smoking, alcohol use, drug use Immunizations: UTD Reviewed Nursing Documentation: PMH: Agreed; PSxH: Agreed Nursing Documentation-PMH Past Medical History: No History, Except For Hx Cardiac Problems: No - acute kidney failure, PNA, GERD, sleep apnea Hx Hypertension: Yes Hx COPD: Yes Hx Cancer: No Hx Gastrointestinal Problems: Yes Hx Neurological Problems: Yes Hx Seizures: Yes - EPILEPSY Review of Systems All Other Systems: negative except mentioned in HPI Physical Exam Vital Signs Date Time Temp Pulse Resp B/P (MAP) Pulse Ox O2 Delivery O2 Flow Rate FiO2 12/14/18 16:27 98.4 90 18 99 Room Air 12/14/18 17:10 130/84 Sp02 EP Interpretation: reviewed, normal General Appearance: no apparent distress, alert, GCS 15, non-toxic, obese Head: normocephalic, atraumatic Eyes: bilateral eye normal inspection, bilateral eye PERRL ENT: hearing grossly normal, normal pharynx, no angioedema, normal voice Neck: full range of motion, supple/symm/no masses Respiratory: chest non-tender, lungs clear, normal breath sounds, speaking full sentences Cardiovascular #1: regular rate, rhythm, no edema Cardiovascular #2: 2+ carotid (R), 2+ carotid (L), 2+ radial (R), 2+ radial (L) , 2+ dorsalis pedis (R), 2+ dorsalis pedis (L) Gastrointestinal: normal bowel sounds, non tender, soft, non-distended, no guarding, no rebound Rectal: deferred Genitourinary: normal inspection, no CVA tenderness Musculoskeletal: back normal, gait/station normal, normal range of motion, non- tender Neurologic: alert, oriented x3, responsive, cell reliner III-XII nml as tested, sensory intact, speech normal, motor weakness Psychiatric: judgement/insight normal, memory normal, mood/affect normal, no suicidal/homicidal ideation Reflexes: 3+ bicep (R), 3+ bicep (L), 3+ tricep (R), 3+ tricep (L), 3+ knee (R) , 3+ knee (L) Skin: normal color, no rash, warm/dry, well hydrated Lymphatic: no adenopathy Medical Decision Making Diagnostic Impression: Primary Impression: Left-sided weakness Additional Impression: Morbid obesity ER Course Hospital Course 53 yo M presents to ED c/o L sided weakness Differential diagnoses include: FL/unstable angina, SVT/Vtach/AFib, CVA/TIA Clinical course Patient placed on stretcher. on color television console monitor. After initial history and physical I ordered labs, EKG, chest x-ray labs reviewed- electrolytes ok, troponins negative, no leukocytosis, Hb/Hct stable EKG - NSR, no acute ischemic changes interpreted by me Chest x-ray- no acute process Patient is not moving his left upper extremity however EMS reports that they saw the patient moving the extremity. Patient has no slurred speech or facial droop. If this is in fact a stroke patient is out of window as symptoms started 2 days ago Because patient's morbid obesity we cannot perform a CT scan here. Discussed with stroke team at [facility]. Stated that the [facility] contacted [facility] and they state they are unable to accommodate this patient Patient would benefit from neurology evaluation on admission. Patient will be admitted to Dr. Corey Rowland. I feel this is a highly complex case requiring extensive working including EKG/Rhythm strip, Xray/CT/US, Blood/urine lab work, repeat exams while in ED, and administration of strong opiates/narcotics for pain control, admission to hospital or close patient follow up. Diagnosis - left sided weakness, morbid obesity admitted to telemetry in serious condition Labs Test 5/20/19 17:30 White Blood Count 7.3 K/UL (4.8-10.8) Red Blood Count 5.07 M/UL (4.70-6.10) Hemoglobin 15.4 G/DL (14.2-18.0) Hematocrit 45.2 % (42.0-52.0) Mean Corpuscular Volume 89 FL (80-99) Mean Corpuscular Hemoglobin 30.3 PG (27.0-31.0) Mean Corpuscular Hemoglobin Concent 33.9 G/DL (32.0-36.0) Red Cell Distribution Width 12.2 % (11.6-14.8) Platelet Count 197 K/UL (150-450) Mean Platelet Volume 6.1 FL (6.5-10.1) Neutrophils (%) (Auto) 55.2 % (45.0-75.0) Lymphocytes (%) (Auto) 36.0 % (20.0-45.0) Monocytes (%) (Auto) 7.2 % (1.0-10.0) Eosinophils (%) (Auto) 0.8 % (0.0-3.0) Basophils (%) (Auto) 0.8 % (0.0-2.0) Sodium Level 140 MMOL/L (136-145) Potassium Level 4.6 MMOL/L (3.5-5.1) Chloride Level 106 MMOL/L (98-107) Carbon Dioxide Level 25 MMOL/L (21-32) Anion Gap 9 mmol/L (5-15) Blood Urea Nitrogen 17 mg/dL (7-18) Creatinine 1.1 MG/DL (0.55-1.30) Estimat Glomerular Filtration Rate > 60 mL/min (>60) Glucose Level 97 MG/DL (74-106) Calcium Level 8.7 MG/DL (8.5-10.1) Total Bilirubin 0.4 MG/DL (0.2-1.0) Aspartate Amino Transf (AST/SGOT) 33 U/L (15-37) Alanine Aminotransferase (ALT/SGPT) 31 U/L (12-78) Alkaline Phosphatase 116 U/L (46-116) Total Creatine Kinase 74 U/L (26-308) Creatine Kinase MB 0.6 NG/ML (0.0-3.6) Creatine Kinase MB Relative Index 0.8 Troponin I 0.000 ng/mL (0.000-0.056) Total Protein 6.8 G/DL (6.4-8.2) Albumin 3.2 G/DL (3.4-5.0) Globulin 3.6 g/dL Albumin/Globulin Ratio 0.9 (1.0-2.7) EKG Diagnostic Results Rate: normal Rhythm: NSR ST Segments: no acute changes ASA given to the pt in ED: No Rhythm Strip Diag. Results EP Interpretation: yes Rhythm: NSR, no PVC's, no ectopy Chest X-Ray Diagnostic Results Chest X-Ray Diagnostic Results : Chest X-Ray Ordered: Yes # of Views/Limited/Complete: 1 View Indication: Chest Pain EP Interpretation: Yes Interpretation: no consolidation, no effusion, no pneumothorax, no acute cardiopulmonary disease Impression: No acute disease Electronically Signed by: Electronically signed by Jose Mason MD Last Vital Signs Date Time Temp Pulse Resp B/P (MAP) Pulse Ox O2 Delivery O2 Flow Rate FiO2 12/14/18 18:51 2 18 114/76 99 Room Air 12/14/18 16:27 98.4 Status: improved Disposition: ADMITTED INPATIENT Condition: Serious Referrals: Ernesto Nicole DO (PCP) Jose Mason MD December 14, 2018 19:31
[2018-12-14 20:00] VITALS: BP 121/71
--- NOTE | 2018-12-14 21:00 | NUR ---
ED Nurse Note: PT CONTINUES TO REST QUIETLY, AWAKE AND ALERT, CONTINUES TO C/O BILAT LEG PAIN AND ASKING FOR DILAUDID FOR PAIN, PT DENIES CP, SOB, OR ANY OTHER COMPLAINTS, PT GIVEN SANDWICH AND JUICE, ATE ALL AND TOLERATED WELL, IV SITE PATENT, PT CONTINUES TO WAIT FOR BED PLACEMENT FOR ADMISSION, PT IS MORBID OBESE, WILL CONITNUE TO CLOSELY MONITOR AND SEND TO FLOOR BED WHEN AVAILABLE.
[2018-12-14 21:45] VITALS: BP 125/74
--- NOTE | 2018-12-14 22:20 | NUR ---
NURSE NOTES: Pt telephone report received from Lolis OLMOS.
--- NOTE | 2018-12-14 22:20 | NUR ---
ED Nurse Note: PT HAS ROOM FOR ADMISISON, REPORT CALLED TO FLOOR NURSE MICAELA RUSSELL ON UNIT, PT IS IN BED AWAKE, ALERT AND ORIENTED X 4, IV SITE PATENT, BELONGINGS WITH PT AND LIST COMPLETED, PT BEING TAKEN TO FLOOR BED VIA GURNEY AND ACLS PROTOCOLS WITH RN AND EMT. NAD NOTED DURING TRANSFER TO FLOOR.
--- NOTE | 2018-12-14 22:29 | NUR ---
NURSE NOTES: Pt refused assistance with ambulation to KATHERINE bed.
[2018-12-14 22:30] VITALS: BP 138/75
--- NOTE | 2018-12-14 22:30 | NUR ---
NURSE NOTES: Pt came to SDU unit with María HINOJOSA and TIMI kahn. Pt is alert and oriented times 4 and able to ambulate to in-pt bed. Pt has a monitoring tech un place displaying SR, no signs or symptoms of acute cardiac distress noted at this time. Pt is saturating at 100 percent room air, no signs or symptoms of cardiac distress noted at this time. PT has a L wrist 22 G active and able to flush, no signs or symptoms of distress noted at this time. All safety precautions are taken at this time such as bed in lowest position, side rails up times 2, call light within easy reach, safety brakes are on, bed alarm active. Additionally, pt is instructed to call for assistance, especially before ambulating. Pt was brought up with all belongings and all belongings are at pt bed side. Will establish plan of care.
--- NOTE | 2018-12-14 22:50 | NUR ---
NURSE NOTES: Contacted MD Dixon and MD Nicole for admitting orders for Pt. awaiting response.
--- NOTE | 2018-12-14 23:30 | NUR ---
NURSE NOTES: Pt refused IV fluids.
[2018-12-14] MEDS ORDERED: D5 1/2NS 1,000 ML IV SCH (23:34)
[2018-12-14] MEDS ORDERED: Morphine Sulfate 2mg/ml Inj(IV/IM USE ONLY) IVP PRN (23:45)
[2018-12-14] MEDS ORDERED: Nitroglycerin Subl 0.4mg tab SL PRN (23:45)
[2018-12-14] MEDS ORDERED: Promethazine/Codeine 5ml UD ORAL PRN (23:45)
[2018-12-14] MEDS ORDERED: Miralax 17gm pkt ORAL PRN (23:45)
[2018-12-14] MEDS ORDERED: Albuterol/Ipratropium 3ml neb HHN PRN (23:45)
[2018-12-14] MEDS ORDERED: LORazepam Inj 2mg/ml 1ml IV PRN (23:45)
--- NOTE | 2018-12-14 23:55 | NUR ---
NURSE NOTES: Pt refused mid night Vital Signs.
--- NOTE | 2018-12-15 03:48 | NUR ---
NURSE NOTES: Pt refused secured entrance monitor.
--- NOTE | 2018-12-15 03:52 | NUR ---
NURSE NOTES: Pt refused Blood draw.
[2018-12-15 04:00] VITALS: BP 121/73
--- NOTE | 2018-12-15 06:58 | NUR ---
HAND-OFF: Report given to Rosa MURPHY. Addendum: 12/15/18 at [address] RN HAND-OFF: Report given to Aleena MURPHY.
--- NOTE | 2018-12-15 07:41 | NUR ---
NURSE NOTES: Report received from MICAELA Li. Observed patient in bed sleeping. Arousable by voice and verbally responsive. No distress noted in room air. Pt. refused potline monitor and IV fluid. IV site intact and patent. Bed in lowest position. Call light within reach. Will continue to monitor.
--- NOTE | 2018-12-15 07:46 | NUR ---
NURSE NOTES: Called and left message to Dr. Dixon to inform that pt. refused IV fluid and director of cardiac rehabilitation. Awaiting for call back.
[2018-12-15 08:00] VITALS: BP 106/54
--- NOTE | 2018-12-15 08:03 | NUR ---
NURSE NOTES: Called back from Dr. Dixon regarding refusal of care with no new order at this time.
--- NOTE | 2018-12-15 08:53 | NUR ---
NURSE NOTES: Patient refused 2D echo and all AM meds. Dr. Dixon made aware.
--- NOTE | 2018-12-15 08:57 | NUR ---
CARDIOLOGY : ATTENDED TO PT'S ROOM AT 8:45 AM HE REFUSED THE ECHO . NURSE CHANDRA IS AWARE
[2018-12-15] MEDS ORDERED: Heparin 5000 units/ml inj SUBQ SCH (09:00)
[2018-12-15] MEDS ORDERED: DULoxetine 30mg cap ORAL SCH (09:00)
--- NOTE | 2018-12-15 09:06 | NUR ---
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
--- NOTE | 2018-12-15 09:19 | NUR ---
ST NOTE: RECEIVED BEDSIDE SWALLOW EVAL CHART REVIEWED. ATTEMPTED ST EVAL. PT REFUSED. RNCHANDRA, NOTIFIED.
--- NOTE | 2018-12-15 10:23 | Consultation ---
History of Present Illness General Date patient seen: December 15, 2018 Chief Complaint: Left sided pain/ weakness/ spasm x 2 days Referring physician: Dr. Josue Dixon Present Illness HPI Fredo Conde is a 53-year-old male SNF resident with a PMH of COPD and seizures who was BIBA overnight for left sided pain, spasticity, and weakness for the last 2 days. He describes the pain as dull, 7 out of 10, and non- nonradiating. He is currently upset because he has been reporting his pain for the last two days. He is being evaluated by neurology to rule out stroke at this time. He remains normotensive and normoglycemic, as he was when he arrived in ED. Allergies: Coded Allergies: ASPIRIN (Verified Allergy, Unknown, 07/14/18) KETOROLAC (Verified Allergy, Unknown, 07/14/18) PENICILLINS (Verified Allergy, Unknown, 07/14/18) Uncoded Allergies: PENICILIN (Allergy, Unknown, 12/14/18) Medication History Scheduled Amlodipine Besylate* (Amlodipine Besylate*), 5 MG ORAL DAILY, (Reported) Atorvastatin Calcium* (Lipitor*), 80 MG ORAL BEDTIME, (Reported) Clopidogrel* (Clopidogrel*), 75 MG ORAL DAILY, (Reported) Docusate Sodium* (Docusate Sodium*), 100 MG ORAL DAILY, (Reported) Duloxetine Hcl* (Cymbalta*), 30 MG ORAL DAILY, (Reported) Enoxaparin* (Lovenox*), 40 MG SUBQ DAILY, (Reported) Furosemide* (Lasix*), 10 MG ORAL Q8HR, (Reported) Gabapentin* (Gabapentin*), 900 MG ORAL THREE TIMES A DAY, (Reported) Lactobacillus Acidophilus (Acidophilus), 1 EACH PO BID, (Reported) Levetiracetam (Levetiracetam), 1,000 MG ORAL TID, (Reported) Nitroglycerin (Nitro-Bid*), 1 INCH TOPIC Q8HR, (Reported) Pantoprazole* (Pantoprazole*), 40 MG ORAL BID, (Reported) Sennosides (Senna), 2 TAB PO HS, (Reported) Scheduled PRN Acetaminophen* (Acetaminophen 325MG Tablet*), 650 MG ORAL Q4H PRN for Mild Pain/ Temp > 100.5, (Reported) Bisacodyl (Dulcolax), 10 MG RC DAILY PRN for IF MOM INEFFECTIVE, (Reported) Hydrocodone Bit/Acetaminophen 10-325* ([place] 10-325*), 1 TAB ORAL Q6HR PRN for For Pain, (Reported) Ipratropium/Albuterol Sulfate (DuoNeb 0.5-3(2.5)mg/3ml), 1 UNIT [id number] Q3HR PRN for Shortness of Breath, (Reported) Magnesium Hydroxide* (Milk Of Magnesia*), 30 ML ORAL BEDTIME PRN for IF DOCUSATE INEFFECTIVE, (Reported) Methocarbamol* (Methocarbamol*), 500 MG ORAL Q8HR PRN for For Pain, (Reported) Na Phos,M-B/Na Phos,Di-Ba* (Fleet Enema*), 133 ML RECTAL QOD PRN for IF DULCOLAX INEFFECTIVE, (Reported) Nitroglycerin (Nitrostat), 0.4 MG SL Q5M X3 DOSES PRN for CHEST PAIN, (Reported) Ondansetron* (Zofran*), 4 MG ORAL Q4HR PRN for Nausea & Vomiting, (Reported) Discontinued Medications Codeine/Promethazine Hcl* (Promethazine-Codeine Syrup*), 5 ML ORAL Q4H PRN for For Cough, (Reported) Discontinued Reason: Therapy completed Diltiazem Hcl (Diltiazem Hcl), 120 MG PO DAILY, (Reported) Discontinued Reason: Therapy completed Furosemide* (Lasix*), 40 MG ORAL DAILY, (Reported) Discontinued Reason: Prescription changed Gabapentin* (Gabapentin*), 600 MG ORAL THREE TIMES A DAY, (Reported) Discontinued Reason: Prescription changed Isosorbide Dinitrate (Isosorbide Dinitrate), 30 MG PO DAILY, (Reported) Discontinued Reason: Therapy completed Isosorbide Mononitrate (Isosorbide Mononitrate Er), 30 MG PO DAILY, (Reported) Discontinued Reason: Therapy completed Levetiracetam (Keppra Xr), 500 MG ORAL BID, (Reported) Discontinued Reason: Prescription changed Morphine Sulfate (Morphine Sulfate Er), 15 MG PO DAILY, (Reported) Discontinued Reason: Therapy completed Polyethylene Glycol 3350* (Miralax*), 17 GM ORAL DAILY PRN for Constipation, ( Reported) Discontinued Reason: Therapy completed Theophylline Anhydrous (George-24), 300 MG PO DAILY, (Reported) Discontinued Reason: Therapy completed Tiotropium [place] (Spiriva), 0 INH DAILY, (Reported) Discontinued Reason: Therapy completed Patient History History Provided By: Patient, Medical Record Healthcare decision maker N Resuscitation status Full Code Advanced Directive on File No Review of Systems Constitutional: Reports: weakness Eye: Denies: no symptoms, see HPI, eye pain, blurred vision, tearing, double vision, nose pain, nose congestion, acuity changes, discharge, other ENT: Denies: no symptoms, see HPI, ear pain, ear discharge, nose pain, nose congestion, throat pain, throat swelling, mouth pain, hearing loss, nasal discharge, other Respiratory: Reports: see HPI, cough, shortness of breath Gastrointestinal: Denies: no symptoms, see HPI, abdominal pain, constipation, diarrhea, nausea, vomiting, melena, hematemesis, other Genitourinary: Denies: no symptoms, see HPI, discharge, dysuria, frequency, hematuria, pain, retention, incontinence, urgency, vag bleed/dc, other Musculoskeletal: Reports: muscle pain, muscle stiffness Skin: Denies: no symptoms, see HPI, rash, change in color, change in hair/nails , dryness, lesions, other Psychiatric: Denies: no symptoms, see HPI, prior hx, anxiety, depressed feelings, emotional problems, SI, HI, hallucinations, other Neurological: Reports: headache, focal weakness; Denies: no symptoms, see HPI, numbness, paresthesia, seizure, tingling, tremors, syncope, dizziness, other Endocrine: Denies: no symptoms, see HPI, excessive sweating, flushing, intolerance to temperature, increased thirst, increased urine, unexplained weight loss, other Hematologic/Lymphatic: Denies: no symptoms, see HPI, anemia, blood clots, easy bleeding, easy bruising, swollen glands, diathesis, other Physical Exam General Appearance: WD/WN, alert, morbidly obese, alert oriented x3 Lines, tubes and drains: peripheral HEENT: normocephalic, atraumatic, anicteric, mucous membranes moist, PERRL, other - tongue deviated to the right Neck: normal alignment, supple, normal inspection Neurologic: alert, oriented x 3, responsive, normal mood/affect, motor weakness , sensory deficit, aphasia, other Physical Exam Narrative Fasciculations around the mouth Tongue deviation LUE weakness 3/5 LLE weakness 4/5 mild left facial weakness developing/ evolving dysarthria and aphasia during exam. Last 24 Hour Vital Signs Date Time Temp Pulse Resp B/P (MAP) Pulse Ox O2 Delivery O2 Flow Rate FiO2 12/15/18 09:00 Room Air 12/15/18 08:00 97.6 63 24 106/54 (71) 94 12/15/18 07:26 67 17 94 Room Air 21 12/15/18 04:00 74 12/15/18 04:00 98.0 83 18 121/73 (89) 99 12/15/18 00:00 62 12/14/18 22:30 Room Air 12/14/18 22:30 98.2 73 19 138/75 (96) 99 12/14/18 22:30 Room Air 12/14/18 22:15 98.4 79 18 125/74 99 Room Air 12/14/18 21:45 98.4 79 18 125/74 99 Room Air 12/14/18 20:00 98.4 81 18 121/71 99 Room Air 12/14/18 18:51 2 18 114/76 99 Room Air 12/14/18 17:54 73 18 115/80 99 Room Air 12/14/18 17:10 73 18 Room Air 12/14/18 17:10 73 18 130/84 99 Room Air 12/14/18 16:27 98.4 90 18 99 Room Air Intake and Output 12/14/18 12/15/18 19:00 07:00 Intake Total 0 ml Balance 0 ml Intake Oral 0 ml Laboratory Tests Test 12/14/18 17:30 White Blood Count 7.3 K/UL (4.8-10.8) Red Blood Count 5.07 M/UL (4.70-6.10) Hemoglobin 15.4 G/DL (14.2-18.0) Hematocrit 45.2 % (42.0-52.0) Mean Corpuscular Volume 89 FL (80-99) Mean Corpuscular Hemoglobin 30.3 PG (27.0-31.0) Mean Corpuscular Hemoglobin Concent 33.9 G/DL (32.0-36.0) Red Cell Distribution Width 12.2 % (11.6-14.8) Platelet Count 197 K/UL (150-450) Mean Platelet Volume 6.1 FL (6.5-10.1) L Neutrophils (%) (Auto) 55.2 % (45.0-75.0) Lymphocytes (%) (Auto) 36.0 % (20.0-45.0) Monocytes (%) (Auto) 7.2 % (1.0-10.0) Eosinophils (%) (Auto) 0.8 % (0.0-3.0) Basophils (%) (Auto) 0.8 % (0.0-2.0) Sodium Level 140 MMOL/L (136-145) Potassium Level 4.6 MMOL/L (3.5-5.1) Chloride Level 106 MMOL/L (98-107) Carbon Dioxide Level 25 MMOL/L (21-32) Anion Gap 9 mmol/L (5-15) Blood Urea Nitrogen 17 mg/dL (7-18) Creatinine 1.1 MG/DL (0.55-1.30) Estimat Glomerular Filtration Rate > 60 mL/min (>60) Glucose Level 97 MG/DL (74-106) Calcium Level 8.7 MG/DL (8.5-10.1) Total Bilirubin 0.4 MG/DL (0.2-1.0) Aspartate Amino Transf (AST/SGOT) 33 U/L (15-37) Alanine Aminotransferase (ALT/SGPT) 31 U/L (12-78) Alkaline Phosphatase 116 U/L (46-116) Total Creatine Kinase 74 U/L (26-308) Creatine Kinase MB 0.6 NG/ML (0.0-3.6) Creatine Kinase MB Relative Index 0.8 Troponin I 0.000 ng/mL (0.000-0.056) Total Protein 6.8 G/DL (6.4-8.2) Albumin 3.2 G/DL (3.4-5.0) L Globulin 3.6 g/dL Albumin/Globulin Ratio 0.9 (1.0-2.7) L Microbiology Date/Time Source Procedure Growth Status 12/14/18 22:00 Rectum Received Height (Feet): 5 Height (Inches): 10.00 Weight (Pounds): 412 Medications Current Medications Medications (Trade) Dose Ordered Sig/Luis Route PRN Reason Start Time Stop Time Status Last Admin Dose Admin Acetaminophen (Tylenol) 650 mg Q4H PRN ORAL fever 12/14/18 23:45 01/13/19 23:44 Albuterol/ Ipratropium (Albuterol/ Ipratropium) 3 ml Q4H PRN HHN Shortness of Breath 12/14/18 23:45 12/19/18 23:44 Atorvastatin Calcium (Lipitor) 80 mg BEDTIME ORAL 12/15/18 21:00 01/14/19 20:59 Clonidine HCl (Catapres Tab) 0.1 mg Q4H PRN ORAL For High Blood Pressure 12/14/18 23:45 01/13/19 23:44 Clopidogrel Bisulfate (Plavix) 75 mg DAILY ORAL 12/15/18 09:00 01/14/19 08:59 Dextrose (Dextrose 50%) 25 ml Q30M PRN IV Hypoglycemia 12/14/18 23:45 01/13/19 23:44 Dextrose (Dextrose 50%) 50 ml Q30M PRN IV Hypoglycemia 12/14/18 23:45 01/13/19 23:44 Dextrose/Sodium Chloride 1,000 ml @ 50 mls/hr Q20H IV 12/14/18 23:34 01/13/19 23:33 Duloxetine HCl (Cymbalta) 30 mg DAILY ORAL 12/15/18 09:00 01/14/19 08:59 Gabapentin (Neurontin) 600 mg THREE TIMES A DAY ORAL 12/15/18 09:00 01/14/19 08:59 Heparin Sodium (Porcine) (Heparin 5000 units/ml) 5,000 units EVERY 12 HOURS SUBQ 12/15/18 09:00 01/14/19 08:59 Lorazepam (Ativan 2mg/ml 1ml) 0.5 mg Q4H PRN IV For Anxiety 12/14/18 23:45 12/21/18 23:44 Morphine Sulfate (Morphine Sulfate) 1 mg Q4H PRN IVP For Pain 7-10 12/14/18 23:45 12/21/18 23:44 Nitroglycerin (Ntg) 0.4 mg Q5M X 3 DOSES PRN SL Prn Chest Pain 12/14/18 23:45 01/13/19 23:44 Ondansetron HCl (Zofran) 4 mg Q6H PRN IVP Nausea & Vomiting 12/14/18 23:45 01/13/19 23:44 Polyethylene Glycol (Miralax) 17 gm HSPRN PRN ORAL Constipation 12/14/18 23:45 01/13/19 23:44 Promethazine HCl/ Codeine (Phenergan with Codeine) 5 ml Q4H PRN ORAL For Cough 12/14/18 23:45 01/13/19 23:44 Temazepam (Restoril) 15 mg HSPRN PRN ORAL Insomnia 12/14/18 23:45 12/21/18 23:44 Trazodone HCl (Desyrel) 100 mg BEDTIME ORAL 12/15/18 21:00 01/14/19 20:59 Assessment/Plan Problem List: (1) Seizures Assessment & Plan: Was previously on 500mg BID Keppra - cannot describe what his seizures are like and denies any preceeding symptoms. Will commence IV Keppra 1000mg BID, Ativan 2mg STAT for appearance of simple partial seizure activity Keppra level will take too long to check to be clinically relevant Maintain SBP<140 Q4 Hour Neuro Checks Ativan 2mg PRN for seizure activity CT Head w/o contrast when able to rule out CVA - also for consideration of MRI if CT negative. - low suspicion of CVA due to normotensive status without risk factors of elevated BP/ HgBA1c or thyroid dysfunction. Na 135-145 Continue pain management Consider commencement of Gabapentin for arm symptoms as well. ICD Codes: R56.9 - Unspecified convulsions SNOMED: 31582196 (2) Morbid obesity ICD Codes: E66.01 - Morbid (severe) obesity due to excess calories SNOMED: 616469159 (3) COPD (chronic obstructive pulmonary disease) ICD Codes: J44.9 - Chronic obstructive pulmonary disease, unspecified SNOMED: 23054693 (4) Uncontrolled seizures ICD Codes: R56.9 - Unspecified convulsions SNOMED: 04558589 (5) Left-sided weakness ICD Codes: R53.1 - Weakness SNOMED: 418477505 (6) Knee osteomyelits, right ICD Codes: M86.9 - Osteomyelitis, unspecified SNOMED: 33873504, [id number] Vicky Taylor N.P. December 15, 2018 10:23
--- NOTE | 2018-12-15 10:46 | Consultation ---
History of Present Illness General Date patient seen: December 15, 2018 Chief Complaint: General Complaint Present Illness HPI 53-year-old male with hx of COPD, active smoker, seizures, morbid obesity presented to ER for evaluation of behavioral complaint however patient is complained of left sided pain and weakness for the last 2 days. Pain is dull, 7 out of 10, nonradiating. Denies slurred speech or facial droop. No other aggravating relieving factors. Denies any other associated symptoms. Allergies: Coded Allergies: ASPIRIN (Verified Allergy, Unknown, 07/14/18) KETOROLAC (Verified Allergy, Unknown, 07/14/18) PENICILLINS (Verified Allergy, Unknown, 07/14/18) Uncoded Allergies: PENICILIN (Allergy, Unknown, 12/14/18) Medication History Scheduled Atorvastatin Calcium* (Lipitor*), 80 MG ORAL BEDTIME, (Reported) Clopidogrel* (Clopidogrel*), 75 MG ORAL DAILY, (Reported) Diltiazem Hcl (Diltiazem Hcl), 120 MG PO DAILY, (Reported) Docusate Sodium* (Docusate Sodium*), 100 MG ORAL DAILY, (Reported) Furosemide* (Lasix*), 40 MG ORAL DAILY, (Reported) Gabapentin* (Gabapentin*), 600 MG ORAL THREE TIMES A DAY, (Reported) Ipratropium/Albuterol Sulfate (DuoNeb 0.5-3(2.5)mg/3ml), 3 ML HHN Q6HR, ( Reported) Isosorbide Dinitrate (Isosorbide Dinitrate), 30 MG PO DAILY, (Reported) Isosorbide Mononitrate (Isosorbide Mononitrate Er), 30 MG PO DAILY, (Reported) Levetiracetam (Keppra Xr), 500 MG ORAL BID, (Reported) Morphine Sulfate (Morphine Sulfate Er), 15 MG PO DAILY, (Reported) Theophylline Anhydrous (George-24), 300 MG PO DAILY, (Reported) Tiotropium [place] (Spiriva), 0 INH DAILY, (Reported) Scheduled PRN Acetaminophen* (Acetaminophen 325MG Tablet*), 650 MG ORAL Q4H PRN for Mild Pain/ Temp > 100.5, (Reported) Bisacodyl (Dulcolax), 10 MG RC DAILY PRN for IF MOM INEFFECTIVE, (Reported) Codeine/Promethazine Hcl* (Promethazine-Codeine Syrup*), 5 ML ORAL Q4H PRN for For Cough, (Reported) Hydrocodone Bit/Acetaminophen 10-325* ([place] 10-325*), 1 TAB ORAL Q4H PRN for For Pain, (Reported) Magnesium Hydroxide* (Milk Of Magnesia*), 30 ML ORAL BEDTIME PRN for IF DOCUSATE INEFFECTIVE, (Reported) Na Phos,M-B/Na Phos,Di-Ba* (Fleet Enema*), 133 ML RECTAL QOD PRN for IF DULCOLAX INEFFECTIVE, (Reported) Nitroglycerin (Nitrostat), 0.4 MG SL Q5M X3 DOSES PRN for CHEST PAIN, (Reported) Polyethylene Glycol 3350* (Miralax*), 17 GM ORAL DAILY PRN for Constipation, ( Reported) Patient History Healthcare decision maker N Resuscitation status Full Code Advanced Directive on File No Past Medical/Surgical History Past Medical/Surgical History: (1) Morbid obesity (2) COPD (chronic obstructive pulmonary disease) (3) Lumbar spondylosis (4) Right heart failure (5) Seizures Review of Systems All Other Systems: negative except mentioned in HPI Physical Exam General Appearance: morbidly obese, alert oriented x3 Lines, tubes and drains: peripheral HEENT: normocephalic, atraumatic Neck: non-tender, normal alignment Respiratory/Chest: chest wall non-tender, lungs clear Breasts: no masses Cardiovascular/Chest: normal peripheral pulses, normal rate Abdomen: normal bowel sounds Genitourinary/Rectal: normal genital exam Extremities: normal range of motion Last 24 Hour Vital Signs Date Time Temp Pulse Resp B/P (MAP) Pulse Ox O2 Delivery O2 Flow Rate FiO2 12/15/18 09:00 Room Air 12/15/18 08:00 97.6 63 24 106/54 (71) 94 12/15/18 07:26 67 17 94 Room Air 21 12/15/18 04:00 74 12/15/18 04:00 98.0 83 18 121/73 (89) 99 12/15/18 00:00 62 12/14/18 22:30 Room Air 12/14/18 22:30 98.2 73 19 138/75 (96) 99 12/14/18 22:30 Room Air 12/14/18 22:15 98.4 79 18 125/74 99 Room Air 12/14/18 21:45 98.4 79 18 125/74 99 Room Air 12/14/18 20:00 98.4 81 18 121/71 99 Room Air 12/14/18 18:51 2 18 114/76 99 Room Air 12/14/18 17:54 73 18 115/80 99 Room Air 12/14/18 17:10 73 18 Room Air 12/14/18 17:10 73 18 130/84 99 Room Air 12/14/18 16:27 98.4 90 18 99 Room Air Intake and Output 12/14/18 12/15/18 19:00 07:00 Intake Total 0 ml Balance 0 ml Intake Oral 0 ml Laboratory Tests Test 12/14/18 17:30 White Blood Count 7.3 K/UL (4.8-10.8) Red Blood Count 5.07 M/UL (4.70-6.10) Hemoglobin 15.4 G/DL (14.2-18.0) Hematocrit 45.2 % (42.0-52.0) Mean Corpuscular Volume 89 FL (80-99) Mean Corpuscular Hemoglobin 30.3 PG (27.0-31.0) Mean Corpuscular Hemoglobin Concent 33.9 G/DL (32.0-36.0) Red Cell Distribution Width 12.2 % (11.6-14.8) Platelet Count 197 K/UL (150-450) Mean Platelet Volume 6.1 FL (6.5-10.1) L Neutrophils (%) (Auto) 55.2 % (45.0-75.0) Lymphocytes (%) (Auto) 36.0 % (20.0-45.0) Monocytes (%) (Auto) 7.2 % (1.0-10.0) Eosinophils (%) (Auto) 0.8 % (0.0-3.0) Basophils (%) (Auto) 0.8 % (0.0-2.0) Sodium Level 140 MMOL/L (136-145) Potassium Level 4.6 MMOL/L (3.5-5.1) Chloride Level 106 MMOL/L (98-107) Carbon Dioxide Level 25 MMOL/L (21-32) Anion Gap 9 mmol/L (5-15) Blood Urea Nitrogen 17 mg/dL (7-18) Creatinine 1.1 MG/DL (0.55-1.30) Estimat Glomerular Filtration Rate > 60 mL/min (>60) Glucose Level 97 MG/DL (74-106) Calcium Level 8.7 MG/DL (8.5-10.1) Total Bilirubin 0.4 MG/DL (0.2-1.0) Aspartate Amino Transf (AST/SGOT) 33 U/L (15-37) Alanine Aminotransferase (ALT/SGPT) 31 U/L (12-78) Alkaline Phosphatase 116 U/L (46-116) Total Creatine Kinase 74 U/L (26-308) Creatine Kinase MB 0.6 NG/ML (0.0-3.6) Creatine Kinase MB Relative Index 0.8 Troponin I 0.000 ng/mL (0.000-0.056) Total Protein 6.8 G/DL (6.4-8.2) Albumin 3.2 G/DL (3.4-5.0) L Globulin 3.6 g/dL Albumin/Globulin Ratio 0.9 (1.0-2.7) L Microbiology Date/Time Source Procedure Growth Status 12/14/18 22:00 Rectum Received Height (Feet): 5 Height (Inches): 10.00 Weight (Pounds): 412 Medications Current Medications Medications (Trade) Dose Ordered Sig/Luis Route PRN Reason Start Time Stop Time Status Last Admin Dose Admin Acetaminophen (Tylenol) 650 mg Q4H PRN ORAL fever 12/14/18 23:45 01/13/19 23:44 Albuterol/ Ipratropium (Albuterol/ Ipratropium) 3 ml Q4H PRN HHN Shortness of Breath 12/14/18 23:45 12/19/18 23:44 Atorvastatin Calcium (Lipitor) 80 mg BEDTIME ORAL 12/15/18 21:00 01/14/19 20:59 Clonidine HCl (Catapres Tab) 0.1 mg Q4H PRN ORAL For High Blood Pressure 12/14/18 23:45 01/13/19 23:44 Clopidogrel Bisulfate (Plavix) 75 mg DAILY ORAL 12/15/18 09:00 01/14/19 08:59 Dextrose (Dextrose 50%) 25 ml Q30M PRN IV Hypoglycemia 12/14/18 23:45 01/13/19 23:44 Dextrose (Dextrose 50%) 50 ml Q30M PRN IV Hypoglycemia 12/14/18 23:45 01/13/19 23:44 Duloxetine HCl (Cymbalta) 30 mg DAILY ORAL 12/15/18 09:00 01/14/19 08:59 Gabapentin (Neurontin) 600 mg THREE TIMES A DAY ORAL 12/15/18 09:00 01/14/19 08:59 Heparin Sodium (Porcine) (Heparin 5000 units/ml) 5,000 units EVERY 12 HOURS SUBQ 12/15/18 09:00 01/14/19 08:59 Hydromorphone HCl (Dilaudid) 2 mg Q4H PRN IV pain 7-10 12/15/18 10:30 12/22/18 10:29 UNV Lorazepam (Ativan 2mg/ml 1ml) 0.5 mg Q4H PRN IV For Anxiety 12/14/18 23:45 12/21/18 23:44 Nitroglycerin (Ntg) 0.4 mg Q5M X 3 DOSES PRN SL Prn Chest Pain 12/14/18 23:45 01/13/19 23:44 Ondansetron HCl (Zofran) 4 mg Q6H PRN IVP Nausea & Vomiting 12/14/18 23:45 01/13/19 23:44 Polyethylene Glycol (Miralax) 17 gm HSPRN PRN ORAL Constipation 12/14/18 23:45 01/13/19 23:44 Promethazine HCl/ Codeine (Phenergan with Codeine) 5 ml Q4H PRN ORAL For Cough 12/14/18 23:45 01/13/19 23:44 Temazepam (Restoril) 15 mg HSPRN PRN ORAL Insomnia 12/14/18 23:45 12/21/18 23:44 Trazodone HCl (Desyrel) 100 mg BEDTIME ORAL 12/15/18 21:00 01/14/19 20:59 Assessment/Plan Problem List: (1) Cerebrovascular accident ICD Codes: I63.9 - Cerebral infarction, unspecified SNOMED: 634142066 (2) Left-sided weakness ICD Codes: R53.1 - Weakness SNOMED: 405954961 (3) COPD (chronic obstructive pulmonary disease) ICD Codes: J44.9 - Chronic obstructive pulmonary disease, unspecified SNOMED: 94246423 (4) Right heart failure ICD Codes: I50.810 - Right heart failure, unspecified SNOMED: 129902142 (5) Lumbar spondylosis ICD Codes: M47.816 - Spondylosis without myelopathy or radiculopathy, lumbar region SNOMED: 353000918 (6) ADALBERTO (obstructive sleep apnea) ICD Codes: G47.33 - Obstructive sleep apnea (adult) (pediatric) SNOMED: 54451726 (7) Morbid obesity ICD Codes: E66.01 - Morbid (severe) obesity due to excess calories SNOMED: 289810256 (8) Seizures ICD Codes: R56.9 - Unspecified convulsions SNOMED: 78478532 Assessment/Plan: MRI or CT of head Neuro evaluation pain management dvt prophylaxis respiratory treatment prn titrate fio2 to sat of 92% Bill Dixon MD December 15, 2018 10:46
--- NOTE | 2018-12-15 11:15 | Consultation ---
DATE OF CONSULTATION: 12/15/2018 CONSULTING PHYSICIAN: Laney Mcghee M.D. HISTORY OF PRESENT ILLNESS: The patient is a 53-year-old male patient. He is admitted to the hospital because he has a history of chronic pain and also he had left-sided pain and weakness for the last two days. He stated he thought he was having a stroke, but he never noticed any new neurologic symptoms or stroke, but the reason why there was a psychiatric consultation requested, the patient has a history of depression. I have seen this patient before on multiple psychiatric admissions. He has a history of depression, agitation, and mood lability worsened by stress of his medical illness. So, that is why psychiatric consultation requested for this patient. The patient's chief complaint is "[facility] and started getting weak on the left side and so that probably and to get checked out and he did have some depression, but for most of the time sleeping and anxiety." MEDICAL HISTORY: The patient has COPD, seizure disorder, and chronic pain. ALLERGIES: He has allergies to aspirin, ketorolac, and penicillin. MEDICATIONS: Psychotropic medications on admission, has a history of being on Cymbalta, but he is currently not on Cymbalta, but he still take a Neurontin 600 mg three times a day for neuropathy and also anxiety and also Ativan 0.5 mg every four hours p.r.n. anxiety and Restoril 15 mg at bedtime. SUBSTANCE ABUSE HISTORY: Denies. PAIN ASSESSMENT: A 9/10 pain. DEVELOPMENTAL PROBLEMS: Denies. FAMILY PSYCHIATRIC HISTORY: Denies. SOCIAL HISTORY: The patient is currently living in [facility]. He is financially supported by [facility] and Medicare. PSYCHIATRIC HISTORY: Generalized anxiety disorder, rule out major depressive disorder. He has had multiple psychiatric consultations. STRENGTHS: He is motivated to get better. He has a place to live. WEAKNESSES: He is impulsive with minimal support system. MENTAL STATUS EXAMINATION: This is a 53-year-old male. His appearance is disheveled. Attitude, irritable and agitated. His affect guarded and restricted. Mood depressed and anxious. Motor activity, psychomotor agitation. Attention span is poor. Orientation x3. Speech is loud, hyperverbal. Thought process, linear goal directed. Thought content, denies auditory or visual hallucinations or delusions. Short-term memory, 3/3 of 3-word recall, after five-minute delay with good short-term memory. Long-term memory is intact based on the knowledge of long-term events in his life such as the high school he went to. Perception is intact because he has no perception services. Abstract reasoning is clear and he does understand proverbs, does not have concrete thinking. Intellect is fair because he knows the last four presidents and he knows current events. Denies any suicidal or homicidal thoughts. in the hospital. Insight and judgment is good. He is able to make medical decisions for himself. DIAGNOSES: 1. Major depressive disorder, moderate, recurrent without psychotic features. 2. Medical for this patient includes seizure disorder, right heart failure, abdominal wall cellulitis, COPD, left-sided weakness, and obesity. 3. Psychosocial stressors financial. PLAN: I am going to restart this patient on home to continue on Neurontin 600 mg three times a day because it does help with anxiety as well as neuropathy. I am going also restart him on Cymbalta at a dose of 30 mg daily for depression and pain prophylaxis and continue Ativan at a dose of 0.5 mg IV q. 4 hours p.r.n. anxiety and agitation and also I am going to start this patient on a medication regimen of trazodone at a dose of 100 mg at bedtime to help him with insomnia. Chart reviewed. Discussed with staff. A 20 minutes of cognitive behavioral therapy provided to help him identify his automated negative thoughts and help to convert his negative thoughts to more positive thoughts to reduce depression, anxiety, suicidality and help him to have more adaptive behavioral pattern. Laney Mcghee M.D. DR: GUTIERREZ JOB#: [id number] CC:
--- NOTE | 2018-12-15 11:31 | NUR ---
P.T NOTE: P.T EVALUATION ATTEMPTED HOWEVER PATIENT ADAMANTLY REFUSED P.T EVALUATION. PATIENT STATED " I DON'T UNDERSTAND WHY THEY ORDER P.T, I AM GETTING UP AND WALKING FINE AND DO NOT NEED ANY THERAPY WHATSOEVER! ". RN NOTIFIED/AWARE. P.T EVALUATION D/C'D.
[2018-12-15 11:32] VITALS: BP 132/79
--- NOTE | 2018-12-15 11:38 | NUR ---
NURSE NOTES: Called and left message to JOHN Taylor regarding CT head order. Maximum weight of CT scan bed is 350 lbs but patient's weight is more than 350 lbs. Awaiting for call back.
--- NOTE | 2018-12-15 11:57 | NUR ---
NURSE NOTES: Informed Dr. Dixon regarding CT head order and patient's weight is over the maximum limit of CT. Dr. Dixon said to cancel the order. Order carried out.
[2018-12-15 13:21] LABS: BASOPHILS % (AUTO) 1.2 % (0.0-2.0); EOSINOPHILS % (AUTO) 1.1 % (0.0-3.0); HEMATOCRIT 48.3 % (42.0-52.0); HEMOGLOBIN 16.1 G/DL (14.2-18.0); LYMPHOCYTES % (AUTO) 39.9 % (20.0-45.0); MEAN CORPUSCULAR VOLUME 91 FL (80-99); MONOCYTES % (AUTO) 6.5 % (1.0-10.0); NEUTROPHILS % (AUTO) 51.4 % (45.0-75.0); PLATELET COUNT 193 K/UL (150-450); RED BLOOD COUNT 5.29 M/UL (4.70-6.10); RED CELL DISTRIBUTION WIDTH 12.9 % (11.6-14.8); WHITE BLOOD COUNT 4.9 K/UL (4.8-10.8)
[2018-12-15 13:28] LABS: AMMONIA 18 umol/L (11-32)
[2018-12-15 13:31] LABS: ANION GAP 5 mmol/L (5-15); BLOOD UREA NITROGEN 16 mg/dL (7-18); CALCIUM 8.8 MG/DL (8.5-10.1); CARBON DIOXIDE 29 MMOL/L (21-32); CHLORIDE 106 MMOL/L (98-107); CREATININE 1.1 MG/DL (0.55-1.30); POTASSIUM 4.3 MMOL/L (3.5-5.1); SODIUM 140 MMOL/L (136-145)
[2018-12-15 13:44] LABS: ALANINE AMINOTRANSFERASE 29 U/L (12-78); ALBUMIN/GLOBULIN RATIO 0.8 (1.0-2.7); ALKALINE PHOSPHATASE 116 U/L (46-116); ASPARTATE AMINO TRANSFERASE 29 U/L (15-37); BILIRUBIN,TOTAL 0.7 MG/DL (0.2-1.0); CHOLESTEROL 159 MG/DL (< 200); HDL CHOLESTEROL 31 MG/DL (40-60); TRIGLYCERIDES 139 MG/DL (30-150)
[2018-12-15] MEDS ORDERED: Nitroglycerin Subl 0.4mg tab SL PRN (14:45)
--- NOTE | 2018-12-15 14:45 | NUR ---
TRANSFER TO FLOOR: Patient transferred to [place] via hospital bed. Report given to MICAELA James. Belongings checked with patient and RN. Stable condition.
--- NOTE | 2018-12-15 14:45 | NUR ---
NURSE NOTES: RN received pt in stable condition. No acute distress or SOB. Plan of care is to rule out CVA; current left sided weakness. No facial dropping or delayed speech on neuro assessment. Pt oriented x 4. Pt has hx of seizures; no seizure medication noted in chart. Home meds include Keppra 500 mg PO BID. RN sent Dr. Dixon a message re seizure med and is awaiting call back / order. Side rails padded. IV patent / asymptomatic. Bed in low, locked position, call light within reach. Pt oriented to room and advised to push call light for assist to restroom. Cell phone, regional guide and personal items within reach. Pain management is of concern to patient. Next pain med due written on white board for comfort. Will continue to monitor.
[2018-12-15] MEDS ORDERED: Albuterol/Ipratropium 3ml neb HHN PRN (14:54)
[2018-12-15] MEDS ORDERED: Miralax 17gm pkt ORAL PRN (14:55)
[2018-12-15] MEDS ORDERED: Promethazine/Codeine 5ml UD ORAL PRN (14:55)
[2018-12-15] MEDS ORDERED: LORazepam Inj 2mg/ml 1ml IV PRN (14:55)
--- NOTE | 2018-12-15 15:52 | NUR ---
*-* NO INSURANCE INFORMATION IN THE BAR UNABLE TO SEND CLINICAL OR REVIEWS *-*
[2018-12-15 16:00] VITALS: BP 113/76
--- NOTE | 2018-12-15 18:10 | NUR ---
NURSE NOTES: Pt legs weeping / cellulitis. RN cleaned w/ NS and wrapped gently w/ Kerlix. Charge nurse made aware.
--- NOTE | 2018-12-15 18:20 | NUR ---
NURSE NOTES: Pt complaining of pain and weakness. JOHN Taylor, neuro at bedside with pt. On assessment pt presented with tongue deviating to right side, asymmetrical smile, r hand embedded linux developer 5/5, l hand embedded linux developer 2/5. JOHN Taylor gave order for Ativan, 1 mg and Keppra IV. RN called pharmacy to verify stat. Side rails padded. Suction at bedside. Charge nurse made aware.
[2018-12-15] MEDS ORDERED: LORazepam Inj 2mg/ml 1ml IVP PRN (18:30)
[2018-12-15] MEDS ORDERED: levETIRAcetam 1,000 MG in D5W 95 ML IV SCH (18:30)
--- NOTE | 2018-12-15 18:30 | History and Physical Report ---
DATE OF ADMISSION: 12/14/2018 CONSULTING PHYSICIANS: 1. Bill Dixon M.D. 2. Cece Magaña M.D. 3. Amador Brewster M.D. CHIEF COMPLAINT: Weakness. BRIEF HISTORY: This is a 53-year-old male, who lives at [facility], presented with a weakness of the arm yesterday. The patient came to [facility], diagnosed with the above, ruled out for CVA due to . The patient is on waiting list to go to [facility] for open CT. Currently, calm in bed, slightly weak, no complaint. REVIEW OF SYSTEMS: No chest pain. Slight short of breath. No nausea, vomiting, or diarrhea. PAST MEDICAL HISTORY: Include weakness, morbid obese, diabetes hypertension, chronic obstructive pulmonary disease, history of CVA, congestive heart failure, edema, and seizure. PAST SURGICAL HISTORY: Right knee. MEDICATIONS: Include Lipitor, Desyrel, Dilaudid, Plavix, Neurontin, heparin, Cymbalta, albuterol, morphine, Zofran, temazepam, and clonidine. ALLERGIES: Penicillin, ketorolac, and aspirin. SOCIAL HISTORY: Positive for smoke. No alcohol. No intravenous drug use. FAMILY HISTORY: Noncontributory. PHYSICAL EXAMINATION: GENERAL: Calm in bed, oriented x3, in slight distress, secondary to weakness. VITAL SIGNS: Show temperature 98 degrees, pulse 67, respirations 22, and blood pressure 132/79. CARDIOVASCULAR: No murmurs. LUNGS: Poor air exchange. ABDOMEN: Bowel sounds distant. EXTREMITIES: Show no cyanosis or clubbing. A 1+ edema in bilateral lower extremity. Large pannus noted in the abdomen area. NEUROLOGIC: The patient moves all extremities, slightly weak. LABORATORY AND DIAGNOSTIC DATA: Labs, at this time, show CBC is normal. BMP is normal. Troponin 0.00. Albumin 3.2. ASSESSMENT: 1. Weakness. 2. Rule out CVA. 3. Morbid obese. 4. History of CVA. 5. Congestive heart failure. 6. Hypertension. 7. Chronic obstructive pulmonary disease. 8. Edema. 9. Seizure. 10. Malnutrition. PLAN: 1. PT and dietary evaluation. 2. CBC and BMP in the morning. 3. Pain control. 4. Blood pressure control. 5. Seizure control. 6. Resume home medications. 7. We will continue to follow this patient. Ernesto Nicole D.O. DR: LIZBETH JOB#: [id number] CC:
[2018-12-15] MEDS: LEVETIRACETAM 1000 MG IVPB SCH ×2 (18:46→21:10)
--- NOTE | 2018-12-15 18:49 | General Progress Note ---
Assessment/Plan Assessment/Plan: (1) Lumbar DDD (2) Lumbar Spondylosis (3) Lumbar Radiculopathy (4) Morbid Obesity (5) Right knee pain (6) Right knee OA h/o ORIF Patient will continued on Dilaudid as needed. D/w Dr. Magaña and he concurred. Subjective Date patient seen: December 15, 2018 Time patient seen: 06:00 - pm Allergies: Coded Allergies: ASPIRIN (Verified Allergy, Unknown, 07/14/18) KETOROLAC (Verified Allergy, Unknown, 07/14/18) PENICILLINS (Verified Allergy, Unknown, 07/14/18) Uncoded Allergies: PENICILIN (Allergy, Unknown, 12/14/18) Subjective REVIEW OF SYSTEMS: Denies rash, fever, chills, sweating, dizziness, drowsiness, blurred vision, sore throat, change in weight. No nausea, vomiting, diarrhea, or blood in the stool or urine. No bowel or bladder incontinence. No dysuria. He is complaining of low back pain and right lower extremity pain. SUBJECTIVE: Patient is a known patient from prior admission admitted under the care of Dr. Nicole. Continues to c/o pain which he has been started on dilaudid 2mg IV Q4h PRN severe pain. Objective Last 24 Hour Vital Signs Date Time Temp Pulse Resp B/P (MAP) Pulse Ox O2 Delivery O2 Flow Rate FiO2 12/15/18 16:00 98.2 79 20 113/76 (88) 97 12/15/18 15:32 98.3 12/15/18 11:32 98.3 67 22 132/79 (96) 94 12/15/18 09:00 Room Air 12/15/18 08:00 97.6 63 24 106/54 (71) 94 12/15/18 07:26 67 17 94 Room Air 21 12/15/18 04:00 74 12/15/18 04:00 98.0 83 18 121/73 (89) 99 12/15/18 00:00 62 12/14/18 22:30 Room Air 12/14/18 22:30 98.2 73 19 138/75 (96) 99 12/14/18 22:30 Room Air 12/14/18 22:15 98.4 79 18 125/74 99 Room Air 12/14/18 21:45 98.4 79 18 125/74 99 Room Air 12/14/18 20:00 98.4 81 18 121/71 99 Room Air 12/14/18 18:51 2 18 114/76 99 Room Air Intake and Output 12/14/18 12/15/18 19:00 07:00 Intake Total 0 ml Balance 0 ml Intake Oral 0 ml Laboratory Tests 12/15/18 12:40: White Blood Count 4.9, Red Blood Count 5.29, Hemoglobin 16.1, Hematocrit 48.3, Mean Corpuscular Volume 91, Mean Corpuscular Hemoglobin 30.3, Mean Corpuscular Hemoglobin Concent 33.3, Red Cell Distribution Width 12.9, Platelet Count 193, Mean Platelet Volume 6.4L, Neutrophils (%) (Auto) 51.4, Lymphocytes (%) (Auto) 39.9, Monocytes (%) (Auto) 6.5, Eosinophils (%) (Auto) 1.1, Basophils (%) (Auto ) 1.2, Prothrombin Time 10.2, Prothromb Time International Ratio 1.0, Activated Partial Thromboplast Time 28, Sodium Level 140, Potassium Level 4.3, Chloride Level 106, Carbon Dioxide Level 29, Anion Gap 5, Blood Urea Nitrogen 16, Creatinine 1.1, Estimat Glomerular Filtration Rate > 60, Glucose Level 108H, Hemoglobin A1c 5.4, Calcium Level 8.8, Total Bilirubin 0.7, Aspartate Amino Transf (AST/SGOT) 29, Alanine Aminotransferase (ALT/SGPT) 29, Alkaline Phosphatase 116, Ammonia 18, Total Protein 6.7, Albumin 3.0L, Globulin 3.7, Albumin/Globulin Ratio 0.8L, Triglycerides Level 139, Cholesterol Level 159, LDL Cholesterol 106H, HDL Cholesterol 31L, Cholesterol/HDL Ratio 5.1H, Thyroid Stimulating Hormone (TSH) 0.931 Height (Feet): 5 Height (Inches): 10.00 Weight (Pounds): 412 Objective GENERAL: Alert, awake, and oriented x3. LUNGS: Decreased breath sounds bilaterally. HEART: S1 and S2, regular. ABDOMEN: Obese. EXTREMITIES: No cyanosis. No clubbing. No edema. NEURO: Weakness noted. Eleizer Nicole December 15, 2018 18:49
[2018-12-15] MEDS ORDERED: GABAPENTIN300 MG ORAL (19:22)
[2018-12-15] MEDS ORDERED: PANTOPRAZOLE SO40 MG ORAL (19:22)
[2018-12-15] MEDS ORDERED: LEVETIRACETAM1000 MG ORAL (19:22)
[2018-12-15] MEDS ORDERED: FUROSEMIDE20 M1 ORAL (19:22)
[2018-12-15] MEDS ORDERED: AMLODIPINE BESYL5 MG ORAL (19:22)
[2018-12-15] MEDS ORDERED: NITRO-BID1 GM TOPIC (19:22)
[2018-12-15] MEDS ORDERED: METHOCARBAMOL500 MG ORAL (19:22)
[2018-12-15] MEDS ORDERED: SENNA8.6 M2 PO (19:22)
[2018-12-15] MEDS ORDERED: LOVENOX10 M4 SUBQ (19:22)
[2018-12-15] MEDS ORDERED: CYMBALTA30 MG ORAL (19:22)
[2018-12-15] MEDS ORDERED: ACIDOPHILUS1 EAC6 PO (19:22)
[2018-12-15] MEDS ORDERED: ZOFRAN4 M3 ORAL (19:22)
[2018-12-15 20:00] VITALS: BP 102/56
--- NOTE | 2018-12-15 20:14 | NUR ---
HAND-OFF: Report given to MICAELA Garrett.
--- NOTE | 2018-12-15 20:26 | NUR ---
NURSE NOTES: Received report from MICAELA Harmon. Patient A&Ox4. On room air. No new onset of seizure since recent one. IV intact, patent, and saline locked. No signs of distress or labored breathing. Bed in lowest position with call light in reach. Side rails padded. Suction at the bedside. Will continue with plan of care.
[2018-12-15] MEDS ORDERED: TraZODone 100mg tab ORAL SCH (21:00)
[2018-12-15] MEDS ORDERED: Atorvastatin 80mg tab ORAL SCH (21:00)
[2018-12-15] MEDS: TraZODone 100mg tab ORAL SCH (21:11)
[2018-12-15] MEDS: Atorvastatin 80mg tab ORAL SCH (21:11)
[2018-12-15] MEDS: Heparin 5000 units/ml inj SUBQ SCH (21:12)
[2018-12-16] VITALS: BP 107/73
--- NOTE | 2018-12-16 02:04 | Neurology Progress Note ---
Interim History Interim History ROS Limited/Unobtainable: No Complaints: Left sided weakness/ spasticity Interim History This visit was conducted on December 16, [address] Amador Brewster. Review of Systems Neuro Review of Systems Patient ambulating with mild left arm weakness, increased tone, mainly spasticity and pain Neuroleptics initiated by Psychiatry Objective Physical Exam Last Vital Signs Date Time Temp Pulse Resp B/P (MAP) Pulse Ox O2 Delivery O2 Flow Rate FiO2 12/15/18 20:09 80 18 97 Room Air 21 12/15/18 16:00 98.2 113/76 (88) Laboratory Tests Test 12/15/18 12:40 White Blood Count 4.9 K/UL (4.8-10.8) Red Blood Count 5.29 M/UL (4.70-6.10) Hemoglobin 16.1 G/DL (14.2-18.0) Hematocrit 48.3 % (42.0-52.0) Mean Corpuscular Volume 91 FL (80-99) Mean Corpuscular Hemoglobin 30.3 PG (27.0-31.0) Mean Corpuscular Hemoglobin Concent 33.3 G/DL (32.0-36.0) Red Cell Distribution Width 12.9 % (11.6-14.8) Platelet Count 193 K/UL (150-450) Mean Platelet Volume 6.4 FL (6.5-10.1) L Neutrophils (%) (Auto) 51.4 % (45.0-75.0) Lymphocytes (%) (Auto) 39.9 % (20.0-45.0) Monocytes (%) (Auto) 6.5 % (1.0-10.0) Eosinophils (%) (Auto) 1.1 % (0.0-3.0) Basophils (%) (Auto) 1.2 % (0.0-2.0) Prothrombin Time 10.2 SEC (9.30-11.50) Prothromb Time International Ratio 1.0 (0.9-1.1) Activated Partial Thromboplast Time 28 SEC (23-33) Sodium Level 140 MMOL/L (136-145) Potassium Level 4.3 MMOL/L (3.5-5.1) Chloride Level 106 MMOL/L (98-107) Carbon Dioxide Level 29 MMOL/L (21-32) Anion Gap 5 mmol/L (5-15) Blood Urea Nitrogen 16 mg/dL (7-18) Creatinine 1.1 MG/DL (0.55-1.30) Estimat Glomerular Filtration Rate > 60 mL/min (>60) Glucose Level 108 MG/DL (74-106) H Hemoglobin A1c 5.4 % (4.3-6.0) Calcium Level 8.8 MG/DL (8.5-10.1) Total Bilirubin 0.7 MG/DL (0.2-1.0) Aspartate Amino Transf (AST/SGOT) 29 U/L (15-37) Alanine Aminotransferase (ALT/SGPT) 29 U/L (12-78) Alkaline Phosphatase 116 U/L (46-116) Ammonia 18 umol/L (11-32) Total Protein 6.7 G/DL (6.4-8.2) Albumin 3.0 G/DL (3.4-5.0) L Globulin 3.7 g/dL Albumin/Globulin Ratio 0.8 (1.0-2.7) L Triglycerides Level 139 MG/DL (30-150) Cholesterol Level 159 MG/DL (< 200) LDL Cholesterol 106 mg/dL (<100) H HDL Cholesterol 31 MG/DL (40-60) L Cholesterol/HDL Ratio 5.1 (3.3-4.4) H Thyroid Stimulating Hormone (TSH) 0.931 uiU/mL (0.358-3.740) General: well developed, well nourished, other - Morbidly obese Head: normocophalic Neck: no rigidity EENT: benign Neurologic Exam Mental Status: awake, alert, oriented x4, normal cognition, good mathematical skills, normal recent memory, normal remote memory, preserved visuospatial function Speech: normal speech, no dysarthia Language: normal language Cranial Nerve II: fundus normal, visual bonilla, no papilledema Cranial Nerves III, IV, : PERRLA, EOMI, pupils Cranial Nerve V: normal facial sensations, temporales function normal, masseters function normal, pterygoids function normal Cranial Nerve VII: no facial asymmetry, normal facial expressions Cranial Nerve VIII: normal hearing, no nystagmus Cranial Nerve IX: normal palate elevation, gag response Cranial Nerve X: no voice hoarseness Cranial Nerve XI: SCM symmetric, trapezii function normal Cranial Nerve XII: tongue midline, no tongue atrophy/fasciculations Motor System: other Sensory: normal pinprick, normal light touch, normal position sense, normal graphesthesia, other Stance: other - Broad based Objective Patient is morbidly obese, alert, oriented- with left arm weakness now 4/5 overall with distal hand 2/5 Neuropathy persists but he is ambulatory with no leg weakness He is agitated and complaining of pain related to his right foot / ankle cellulitis . Impression/Recommendations Problems: (1) Seizures Assessment & Plan: Was previously on 500mg BID Keppra - cannot describe what his seizures are like and denies any preceeding symptoms. Will commence IV Keppra 1000mg BID, Ativan 2mg STAT for appearance of simple partial seizure activity Keppra level will take too long to check to be clinically relevant Maintain SBP<140 Q4 Hour Neuro Checks Ativan 2mg PRN for seizure activity CT Head w/o contrast when able to rule out CVA - also for consideration of MRI if CT negative. - low suspicion of CVA due to normotensive status without risk factors of elevated BP/ HgBA1c or thyroid dysfunction. Na 135-145 Continue pain management Consider commencement of Gabapentin for arm symptoms as well. (2) Morbid obesity (3) COPD (chronic obstructive pulmonary disease) (4) Uncontrolled seizures (5) Left-sided weakness (6) Knee osteomyelits, right Recommendations Continue neuroleptic meds as per psychiatry Some increased agitation - consider additiona 25mg Seroquel PRN for agitation Maintain SBP<140 PT/OT evals CT/ MRI follow up to rule out stroke EEG as outpatient Vicky Taylor N.P. December 16, 2018 02:04
[2018-12-16 04:00] VITALS: BP 106/64
[2018-12-16 06:35] LABS: BASOPHILS % (AUTO) 0.9 % (0.0-2.0); EOSINOPHILS % (AUTO) 1.6 % (0.0-3.0); HEMATOCRIT 49.5 % (42.0-52.0); HEMOGLOBIN 16.3 G/DL (14.2-18.0); LYMPHOCYTES % (AUTO) 40.1 % (20.0-45.0); MEAN CORPUSCULAR VOLUME 92 FL (80-99); NEUTROPHILS % (AUTO) 48.4 % (45.0-75.0); PLATELET COUNT 202 K/UL (150-450); RED BLOOD COUNT 5.38 M/UL (4.70-6.10); RED CELL DISTRIBUTION WIDTH 13.4 % (11.6-14.8); WHITE BLOOD COUNT 5.8 K/UL (4.8-10.8)
[2018-12-16 07:05] LABS: ANION GAP 6 mmol/L (5-15); BLOOD UREA NITROGEN 22 mg/dL (7-18); CALCIUM 8.9 MG/DL (8.5-10.1); CARBON DIOXIDE 30 MMOL/L (21-32); CHLORIDE 102 MMOL/L (98-107); CREATININE 1.3 MG/DL (0.55-1.30); POTASSIUM 4.3 MMOL/L (3.5-5.1); SODIUM 138 MMOL/L (136-145)
--- NOTE | 2018-12-16 07:50 | NUR ---
HAND-OFF: Report given to Forrest Cherry RN.
--- NOTE | 2018-12-16 07:55 | NUR ---
NURSE NOTES: PT AXOX4, CALM, RESTING IN BED. IN NO APPARENT DISTRESS AT THIS TIME. PT STATES SORENESS OF LLE. PT WITH LEFT SIDED WEAKNESS, STRENGTH 2/5. PT EDUCATED ON FALL/SAFETY PRECAUTIONS. PT VERBALIZED UNDERSTANDING. CALL LIGHT WITHIN REACH. BED IN LOWEST POSITION WITH SIDERAILS X2 PADDED. WILL CONTINUE TO MONITOR.
[2018-12-16 08:00] VITALS: BP 120/71
[2018-12-16] MEDS: DULoxetine 30mg cap ORAL SCH (08:12)
[2018-12-16] MEDS: Heparin 5000 units/ml inj SUBQ SCH ×2 (08:13→21:24)
--- NOTE | 2018-12-16 08:49 | General Progress Note ---
Assessment/Plan Assessment/Plan: (1) Lumbar DDD (2) Lumbar Spondylosis (3) Lumbar Radiculopathy (4) Morbid Obesity (5) Right knee pain (6) Right knee OA h/o ORIF We will continue patient on Dilaudid as needed. D/w Dr. Magaña and he concurred. Subjective Date patient seen: December 16, 2018 Time patient seen: 07:15 - am Allergies: Coded Allergies: ASPIRIN (Verified Allergy, Unknown, 07/14/18) KETOROLAC (Verified Allergy, Unknown, 07/14/18) PENICILLINS (Verified Allergy, Unknown, 07/14/18) Uncoded Allergies: PENICILIN (Allergy, Unknown, 12/14/18) Subjective REVIEW OF SYSTEMS: Denies rash, fever, chills, sweating, dizziness, drowsiness, blurred vision, sore throat, change in weight. No nausea, vomiting, diarrhea, or blood in the stool or urine. No bowel or bladder incontinence. No dysuria. He is complaining of low back pain SUBJECTIVE: Patient is in bed and continues to c/o severe pain His pain has been tolerated on the Dilaudid using 4 doses in the last 24hrs. Objective Last 24 Hour Vital Signs Date Time Temp Pulse Resp B/P (MAP) Pulse Ox O2 Delivery O2 Flow Rate FiO2 12/16/18 08:00 97.6 84 16 120/71 (87) 97 12/16/18 07:29 72 16 96 Room Air 21 12/16/18 04:00 97.4 71 20 106/64 (78) 97 12/16/18 00:00 97.3 78 18 107/73 (84) 93 12/15/18 21:00 Room Air 12/15/18 20:09 80 18 97 Room Air 21 12/15/18 20:00 98.2 70 18 102/56 (71) 93 12/15/18 16:00 98.2 79 20 113/76 (88) 97 12/15/18 15:32 98.3 12/15/18 11:32 98.3 67 22 132/79 (96) 94 12/15/18 09:00 Room Air Intake and Output 12/15/18 12/16/18 19:00 07:00 Intake Total 860 ml Balance 860 ml Intake Oral 860 ml # Voids 1 2 Laboratory Tests 12/15/18 12:40: White Blood Count 4.9, Red Blood Count 5.29, Hemoglobin 16.1, Hematocrit 48.3, Mean Corpuscular Volume 91, Mean Corpuscular Hemoglobin 30.3, Mean Corpuscular Hemoglobin Concent 33.3, Red Cell Distribution Width 12.9, Platelet Count 193, Mean Platelet Volume 6.4L, Neutrophils (%) (Auto) 51.4, Lymphocytes (%) (Auto) 39.9, Monocytes (%) (Auto) 6.5, Eosinophils (%) (Auto) 1.1, Basophils (%) (Auto ) 1.2, Prothrombin Time 10.2, Prothromb Time International Ratio 1.0, Activated Partial Thromboplast Time 28, Sodium Level 140, Potassium Level 4.3, Chloride Level 106, Carbon Dioxide Level 29, Anion Gap 5, Blood Urea Nitrogen 16, Creatinine 1.1, Estimat Glomerular Filtration Rate > 60, Glucose Level 108H, Hemoglobin A1c 5.4, Calcium Level 8.8, Total Bilirubin 0.7, Aspartate Amino Transf (AST/SGOT) 29, Alanine Aminotransferase (ALT/SGPT) 29, Alkaline Phosphatase 116, Ammonia 18, Total Protein 6.7, Albumin 3.0L, Globulin 3.7, Albumin/Globulin Ratio 0.8L, Triglycerides Level 139, Cholesterol Level 159, LDL Cholesterol 106H, HDL Cholesterol 31L, Cholesterol/HDL Ratio 5.1H, Thyroid Stimulating Hormone (TSH) 0.931 12/16/18 05:39: White Blood Count 5.8, Red Blood Count 5.38, Hemoglobin 16.3, Hematocrit 49.5, Mean Corpuscular Volume 92, Mean Corpuscular Hemoglobin 30.2, Mean Corpuscular Hemoglobin Concent 32.9, Red Cell Distribution Width 13.4, Platelet Count 202, Mean Platelet Volume 6.3L, Neutrophils (%) (Auto) 48.4, Lymphocytes (%) (Auto) 40.1, Monocytes (%) (Auto) 9.0, Eosinophils (%) (Auto) 1.6, Basophils (%) (Auto ) 0.9, Sodium Level 138, Potassium Level 4.3, Chloride Level 102, Carbon Dioxide Level 30, Anion Gap 6, Blood Urea Nitrogen 22H, Creatinine 1.3, Estimat Glomerular Filtration Rate 57.3, Glucose Level 92, Calcium Level 8.9 Height (Feet): 5 Height (Inches): 10.00 Weight (Pounds): 409 Objective GENERAL: Alert, awake, and oriented x3. LUNGS: Decreased breath sounds bilaterally. HEART: S1 and S2, regular. ABDOMEN: Obese. EXTREMITIES: No cyanosis. No clubbing. No edema. NEURO: Weakness noted. Eliezer Nicole December 16, 2018 08:49
--- NOTE | 2018-12-16 09:00 | Progress Note ---
DATE: 12/16/2018 SUBJECTIVE: This is a 53-year-old male. He has came in with chronic pain. He has a lot of mood lability, depressed, and anxiety, worsened by stress of his medical illness. That is why, his attending has requested daily psychiatric consultation. MENTAL STATUS EXAMINATION: This is a 53-year-old male. Appearance is disheveled. Attitude, irritable and agitated. Affect, guarded and restricted. Intellect poor. Mood, depressed and anxious. Motor activity, psychomotor agitation. Attention span is poor. Orientation x2. Speech is pressured. Thought process, disorganized and illogical. Insight and judgment is poor. DIAGNOSIS: Major depressive disorder, mild, recurrent, without psychotic features, rule out generalized anxiety disorder. PLAN: Treat him with Neurontin 600 mg three times a day, Cymbalta 30 mg daily, Ativan 0.5 mg IV q. 6 hours p.r.n., and trazodone 100 mg at bedtime. Provide him with 20 minutes of cognitive behavioral therapy to help him identify automatic negative thoughts and help him convert those negative thoughts to more positive thoughts to reduce depression, anxiety, and mood lability. Also help him to have more adaptive behavioral pattern. Chart reviewed. Discussed with staff. Seen and assessed in his room. Laney Mcghee M.D. DR: GUTIERREZ JOB#: [id number] CC:
[2018-12-16 11:39] VITALS: BP 127/69
--- NOTE | 2018-12-16 12:38 | Pulmonology Progress Note ---
Assessment/Plan Problems: (1) Seizures (2) Cerebrovascular accident (3) Left-sided weakness (4) COPD (chronic obstructive pulmonary disease) (5) Right heart failure (6) Lumbar spondylosis (7) ADALBERTO (obstructive sleep apnea) (8) Morbid obesity Assessment/Plan f/u neuro recommendations plastic surgery contacted, respiratory treatment titrate fio2 to sat of 92% dvt prophylaxis Subjective ROS Limited/Unobtainable: No Interval Events: feeling better Constitutional: Reports: no symptoms Allergies: Coded Allergies: ASPIRIN (Verified Allergy, Unknown, 07/14/18) KETOROLAC (Verified Allergy, Unknown, 07/14/18) PENICILLINS (Verified Allergy, Unknown, 07/14/18) Uncoded Allergies: PENICILIN (Allergy, Unknown, 12/14/18) Objective Last 24 Hour Vital Signs Date Time Temp Pulse Resp B/P (MAP) Pulse Ox O2 Delivery O2 Flow Rate FiO2 12/16/18 11:39 97.6 66 16 127/69 (88) 95 12/16/18 08:00 97.6 84 16 120/71 (87) 97 12/16/18 07:29 72 16 96 Room Air 21 12/16/18 04:00 97.4 71 20 106/64 (78) 97 12/16/18 00:00 97.3 78 18 107/73 (84) 93 12/15/18 21:00 Room Air 12/15/18 20:09 80 18 97 Room Air 21 12/15/18 20:00 98.2 70 18 102/56 (71) 93 12/15/18 16:00 98.2 79 20 113/76 (88) 97 12/15/18 15:32 98.3 Intake and Output 12/15/18 12/16/18 19:00 07:00 Intake Total 860 ml Balance 860 ml Intake Oral 860 ml # Voids 1 2 General Appearance: WD/WN HEENT: atraumatic, PERRL Respiratory/Chest: normal breath sounds, chest wall tender Cardiovascular: normal rate, no JVD Abdomen: no organomegaly Extremities: no cyanosis Skin: no lesions Microbiology Date/Time Source Procedure Growth Status 12/14/18 22:00 Rectum VRE Culture - Final NO VANCOMYCIN RESISTANT ENTEROCOCCUS ... Complete Laboratory Tests 12/15/18 12:40: White Blood Count 4.9, Red Blood Count 5.29, Hemoglobin 16.1, Hematocrit 48.3, Mean Corpuscular Volume 91, Mean Corpuscular Hemoglobin 30.3, Mean Corpuscular Hemoglobin Concent 33.3, Red Cell Distribution Width 12.9, Platelet Count 193, Mean Platelet Volume 6.4L, Neutrophils (%) (Auto) 51.4, Lymphocytes (%) (Auto) 39.9, Monocytes (%) (Auto) 6.5, Eosinophils (%) (Auto) 1.1, Basophils (%) (Auto ) 1.2, Prothrombin Time 10.2, Prothromb Time International Ratio 1.0, Activated Partial Thromboplast Time 28, Sodium Level 140, Potassium Level 4.3, Chloride Level 106, Carbon Dioxide Level 29, Anion Gap 5, Blood Urea Nitrogen 16, Creatinine 1.1, Estimat Glomerular Filtration Rate > 60, Glucose Level 108H, Hemoglobin A1c 5.4, Calcium Level 8.8, Total Bilirubin 0.7, Aspartate Amino Transf (AST/SGOT) 29, Alanine Aminotransferase (ALT/SGPT) 29, Alkaline Phosphatase 116, Ammonia 18, Total Protein 6.7, Albumin 3.0L, Globulin 3.7, Albumin/Globulin Ratio 0.8L, Triglycerides Level 139, Cholesterol Level 159, LDL Cholesterol 106H, HDL Cholesterol 31L, Cholesterol/HDL Ratio 5.1H, Thyroid Stimulating Hormone (TSH) 0.931 12/16/18 05:39: White Blood Count 5.8, Red Blood Count 5.38, Hemoglobin 16.3, Hematocrit 49.5, Mean Corpuscular Volume 92, Mean Corpuscular Hemoglobin 30.2, Mean Corpuscular Hemoglobin Concent 32.9, Red Cell Distribution Width 13.4, Platelet Count 202, Mean Platelet Volume 6.3L, Neutrophils (%) (Auto) 48.4, Lymphocytes (%) (Auto) 40.1, Monocytes (%) (Auto) 9.0, Eosinophils (%) (Auto) 1.6, Basophils (%) (Auto ) 0.9, Sodium Level 138, Potassium Level 4.3, Chloride Level 102, Carbon Dioxide Level 30, Anion Gap 6, Blood Urea Nitrogen 22H, Creatinine 1.3, Estimat Glomerular Filtration Rate 57.3, Glucose Level 92, Calcium Level 8.9 Current Medications Medications (Trade) Dose Ordered Sig/Luis Route PRN Reason Start Time Stop Time Status Last Admin Dose Admin Acetaminophen (Tylenol) 650 mg Q4H PRN ORAL fever 12/15/18 14:54 01/14/19 14:53 Albuterol/ Ipratropium (Albuterol/ Ipratropium) 3 ml Q4H PRN HHN Shortness of Breath 12/15/18 14:54 12/20/18 14:53 Atorvastatin Calcium (Lipitor) 80 mg BEDTIME ORAL 12/15/18 21:00 01/14/19 20:59 12/15/18 21:11 Clonidine HCl (Catapres Tab) 0.1 mg Q4H PRN ORAL For High Blood Pressure 12/15/18 14:56 01/14/19 14:55 Clopidogrel Bisulfate (Plavix) 75 mg DAILY ORAL 12/16/18 09:00 01/14/19 08:59 12/16/18 08:12 Dextrose (Dextrose 50%) 25 ml Q30M PRN IV Hypoglycemia 12/15/18 15:15 01/13/19 23:44 Dextrose (Dextrose 50%) 50 ml Q30M PRN IV Hypoglycemia 12/15/18 15:15 01/13/19 23:44 Duloxetine HCl (Cymbalta) 30 mg DAILY ORAL 12/16/18 09:00 01/14/19 08:59 12/16/18 08:12 Gabapentin (Neurontin) 600 mg THREE TIMES A DAY ORAL 12/15/18 18:00 01/14/19 08:59 12/16/18 08:12 Heparin Sodium (Porcine) (Heparin 5000 units/ml) 5,000 units EVERY 12 HOURS SUBQ 12/15/18 21:00 01/14/19 08:59 12/15/18 21:12 Hydromorphone HCl (Dilaudid) 2 mg Q4H PRN IV pain 7-10 12/15/18 14:55 12/22/18 14:54 12/16/18 09:38 Levetiracetam 100 ml @ 400 mls/hr Q12HR IVPB 12/15/18 18:30 01/14/19 18:29 12/15/18 21:10 Lorazepam (Ativan 2mg/ml 1ml) 0.5 mg Q4H PRN IV For Anxiety 12/15/18 14:55 12/22/18 14:54 Lorazepam (Ativan 2mg/ml 1ml) 1 mg Q4H PRN IVP For Seizures 12/15/18 18:30 12/22/18 18:29 12/15/18 18:32 Nitroglycerin (Ntg) 0.4 mg Q5M X 3 DOSES PRN SL Prn Chest Pain 12/15/18 14:45 01/13/19 23:44 Ondansetron HCl (Zofran) 4 mg Q6H PRN IVP Nausea & Vomiting 12/15/18 14:55 01/14/19 14:54 Polyethylene Glycol (Miralax) 17 gm HSPRN PRN ORAL Constipation 12/15/18 14:55 01/14/19 14:54 Promethazine HCl/ Codeine (Phenergan with Codeine) 5 ml Q4H PRN ORAL For Cough 12/15/18 14:55 01/14/19 14:54 Temazepam (Restoril) 15 mg HSPRN PRN ORAL Insomnia 12/15/18 14:55 12/22/18 14:54 Trazodone HCl (Desyrel) 100 mg BEDTIME ORAL 12/15/18 21:00 01/14/19 20:59 12/15/18 21:11 Bill Dixon MD December 16, 2018 12:38
--- NOTE | 2018-12-16 13:26 | NUR ---
RD ASSESSMENT & RECOMMENDATIONS SEE CARE ACTIVITY FOR COMPLETE ASSESSMENT DAILY ESTIMATED NEEDS: Needs based on obesity, pulmonary, 107kg abw 15-20 kcals/kg 2324-5582 total kcals 1-1.5 g protein/kg 107-161 g total protein 15-25ml/kcal mL/kg 9931-6043 total fluid mLs NUTRITION DIAGNOSIS: Decreased sodium and fat intake needs R/T cardiac h/o and morbid obesity as evidenced by h/o CHF, CVA, w/ BMI>50, @230% of [place] Body Weight. PO DIET RECOMMENDATIONS: REC DIET CHANGE TO -> CARDIAC ----- ADDITIONAL RECOMMENDATIONS: * Obtain a standing weight as able or calibrated bedscale wt for accurate * Diet change to Cardiac * Pt not receptive to diet edu at this time .
--- NOTE | 2018-12-16 14:37 | General Progress Note ---
Assessment/Plan Problem List: (1) Abdominal pannus ICD Codes: E65 - Localized adiposity SNOMED: 4266801565323 (2) Peripheral edema ICD Codes: R60.9 - Edema, unspecified SNOMED: 449211317 (3) Abdominal wall cellulitis ICD Codes: L03.311 - Cellulitis of abdominal wall SNOMED: 73724506 (4) Leg pain ICD Codes: M79.606 - Pain in leg, unspecified SNOMED: 79043009 (5) COPD (chronic obstructive pulmonary disease) ICD Codes: J44.9 - Chronic obstructive pulmonary disease, unspecified SNOMED: 98548244 (6) Seizures ICD Codes: R56.9 - Unspecified convulsions SNOMED: 54771478 (7) Morbid obesity ICD Codes: E66.01 - Morbid (severe) obesity due to excess calories SNOMED: 916987939 (8) Cerebrovascular accident ICD Codes: I63.9 - Cerebral infarction, unspecified SNOMED: 668971042 (9) Left-sided weakness ICD Codes: R53.1 - Weakness SNOMED: 878219319 Status: unchanged Assessment/Plan: pt diet neuro f/u wound care abx pain control cbc bmp am Subjective Constitutional: Reports: weakness Allergies: Coded Allergies: ASPIRIN (Verified Allergy, Unknown, 07/14/18) KETOROLAC (Verified Allergy, Unknown, 07/14/18) PENICILLINS (Verified Allergy, Unknown, 07/14/18) Uncoded Allergies: PENICILIN (Allergy, Unknown, 12/14/18) All Systems: reviewed and negative except above Subjective sleepy calm in bed Objective Last 24 Hour Vital Signs Date Time Temp Pulse Resp B/P (MAP) Pulse Ox O2 Delivery O2 Flow Rate FiO2 12/16/18 11:39 97.6 66 16 127/69 (88) 95 12/16/18 08:00 97.6 84 16 120/71 (87) 97 12/16/18 07:29 72 16 96 Room Air 21 12/16/18 04:00 97.4 71 20 106/64 (78) 97 12/16/18 00:00 97.3 78 18 107/73 (84) 93 12/15/18 21:00 Room Air 12/15/18 20:09 80 18 97 Room Air 21 12/15/18 20:00 98.2 70 18 102/56 (71) 93 12/15/18 16:00 98.2 79 20 113/76 (88) 97 12/15/18 15:32 98.3 Intake and Output 12/15/18 12/16/18 19:00 07:00 Intake Total 860 ml Balance 860 ml Intake Oral 860 ml # Voids 1 2 Laboratory Tests 12/16/18 05:39: White Blood Count 5.8, Red Blood Count 5.38, Hemoglobin 16.3, Hematocrit 49.5, Mean Corpuscular Volume 92, Mean Corpuscular Hemoglobin 30.2, Mean Corpuscular Hemoglobin Concent 32.9, Red Cell Distribution Width 13.4, Platelet Count 202, Mean Platelet Volume 6.3L, Neutrophils (%) (Auto) 48.4, Lymphocytes (%) (Auto) 40.1, Monocytes (%) (Auto) 9.0, Eosinophils (%) (Auto) 1.6, Basophils (%) (Auto ) 0.9, Sodium Level 138, Potassium Level 4.3, Chloride Level 102, Carbon Dioxide Level 30, Anion Gap 6, Blood Urea Nitrogen 22H, Creatinine 1.3, Estimat Glomerular Filtration Rate 57.3, Glucose Level 92, Calcium Level 8.9 Height (Feet): 5 Height (Inches): 10.00 Weight (Pounds): 409 General Appearance: lethargic EENT: normal ENT inspection Neck: normal alignment Cardiovascular: normal peripheral pulses, normal rate, regular rhythm Respiratory/Chest: chest wall non-tender, lungs clear, normal breath sounds Abdomen: normal bowel sounds, distended Extremities: normal inspection Edema: 1+ Arm (L), 1+ Arm (R), 1+ Leg (L), 1+ Leg (R), 1+ Pedal (L), 1+ Pedal ( R), 1+ Generalized Edema: mild edema Neurologic: responsive, motor weakness Skin: normal pigmentation, warm/dry Ernesto Nicoleg DO December 16, 2018 14:37
--- NOTE | 2018-12-16 14:59 | NUR ---
*-* NO INSURANCE INFORMATION UNABLE TO SEND CLINICALS OR REVIEWS *-*
--- NOTE | 2018-12-16 15:53 | NUR ---
ST NOTE: BEDSIDE SWALLOW EVAL RECEIVED BEDSIDE SWALLOW EVAL ORDER CHART REVIEWED PRIOR THE EVALUATION PT IS A 53-YEAR-OLD MALE WHO WAS TRANSFERRED FROM [facility] TO R/O CVA. DYSPHAGIA RISK FACTORS: H/O CVA, SEIZURE, MORBID OBESITY. PT RESIDES AT SNF. PER CHART, PT WAS ON REGULAR WITH THIN LIQUIDS DIET CURRENT STATUS: PT SEEN AT BEDSIDE IN PM. ALERT, COOPERATIVE, ABLE TO FOLLOW DIRECTIONS. PT STATED THAT HAVING A HEADACHE AFTER A NAP; AND NOTICED THAT L-SIDE OF HIS BODY BEING WEAK TWO DAYS AGO. PT ALSO REPORTED THERE IS A CHANGE OF HIS SPEECH(MORE STUMBLING), MILD STUTTERING WAS NOTED, SOMETIMES HARD TO GET OUT THE WORDS, THOUGHT PROCESSING SEEMS SLOWER. GIVEN PO TRIALS: ICE-CHIPS(TSP) AND PUDDING(TSP), PT REFUSED THIN LIQUIDS AND MASTICATED SOLID. INITIAL IMPRESSION: UNABLE TO PRODUCE /OO/ AND /EE/, VERY STRANGLE VOICE WHEN PRODUCED /AH/. L-SIDED FACIAL WEAKNESS L-SIDED WEAKNESS MILD TO MODERATE OR WORSENED OROPHARYNGEAL DYSPHAGIA TONGUE TOTALLY DEVIATED TO R-SIDED BUT ABLE TO MOVE BILATERALLY. MILD TO MODERATE ORAL TRANSIT TIME(4 SECONDS), FAIR LARYNGEAL ELEVATION, EFFORTFUL SWALLOW WAS NOTED, NO OVERT S/S OF ASPIRATION. PT ALSO STATED THAT HE NEEDS TO EAT VERY SLOWLY AND SMALL BITES. PT HAS RISK FOR ASPIRATION DUE TO PROBABLE NEW ONSET OF CVA. RECOMMENDATIONS: 1. PT REFUSED TO DOWNGRADE TO MODIFIED DIET OR THICKENED LIQUIDS. FOR QUALITY OF LIFE AND PT REQUESTED, CONTINUE REGULAR WITH THIN LIQUIDS DIET. 2. STRICT ASPIRATION/REFLUX PRECAUTIONS 3. MODIFIED BARIUM SWALLOW STUDY 4. SPEECH/LANGUAGE/COGNITION EVAL D/W PT AND RN, KIA.
[2018-12-16 16:00] VITALS: BP 143/87
--- NOTE | 2018-12-16 16:19 | NUR ---
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 ABDOMINAL WALL CELLULITIS VS: BP 114/76, P 79, T 98.4, RR 18, SpO2 99 BUN 22 IS:DILAUDID 2mg IV GABAPENTIN 600 mg PLAVIX 75mg CYMBALTA 30mg MED/SURG STATUS
--- NOTE | 2018-12-16 19:25 | NUR ---
HAND-OFF: Report given to Jessie CHAUDHRY RN.
--- NOTE | 2018-12-16 19:36 | NUR ---
NURSE NOTES: Received patient awake in bed, able to verbalize needs, no s/s of acute distress, IV access asymptomatic, dressing reinforced. No c/o pain at this time but wants his Q4 pain med given at 2130 tonight. Pt requested lower extremity wounds to be cleaned, will carry out. Fall and safety precautions taken, seizure precautions taken.
--- NOTE | 2018-12-16 20:26 | Cardiology Report ---
APPROVED REPORT EKG Measurement Heart [id number] [place] [id number] Normal sinus rhythm Normal ECG
[2018-12-16 21:00] VITALS: BP 149/83
[2018-12-16] MEDS: Atorvastatin 80mg tab ORAL SCH (21:23)
[2018-12-16] MEDS: TraZODone 100mg tab ORAL SCH (21:23)
[2018-12-16] MEDS: LEVETIRACETAM 1000 MG IVPB SCH (21:24)
[2018-12-17] VITALS: BP 121/80
--- NOTE | 2018-12-17 02:15 | Consultation ---
DATE OF CONSULTATION: 12/15/2018 NOTE: POOR AUDIO. PSYCHOTHERAPY CONSULTATION PROGRESS NOTE CONSULTING PHYSICIAN: Liu Jackman M.D. TREATING ATTENDING PHYSICIAN: Ernesto Nicole D.O. HISTORY OF PRESENT ILLNESS: This patient is a 53-year-old male patient. The patient is moved to the hospital to rule out or treat for vascular access. The patient has a history of bipolar disorder. The patient has been anxious and he has been having difficulty sleeping. For these reasons, he was also referred for psychotherapeutic services, and this clinician has assessed this patient. The patient states that he has been having difficulty sleeping at nighttime. He states that his mood has been fluctuating because he has been feeling more agitated and he tries very hard to keep himself healthy and he becomes somewhat . The patient was tearful and has possible CVA. He states that he needs help. He states that they will do a scan today in order to find out more information regarding his current medical condition. At this time, he denies suicidal or homicidal thoughts of ideation. Denies any auditory or visual hallucinations. The patient is from [facility]. PAST MEDICAL HISTORY: Includes a history of CVA, congestive heart failure, edema, seizures, pulmonary disease, COPD, morbid obesity, diabetes, and hypertension. ALLERGIES: The patient is allergic to , aspirin, and penicillin. SUBSTANCE ABUSE HISTORY: The patient denies history of alcohol use or illicit substance use. PSYCHIATRIC HISTORY: The patient has a history of bipolar disorder and has been treated with psychotropic medications in the past. SOCIAL HISTORY: The patient is a 53-year-old male patient who is from [facility]. Financially sustained through [facility]. MENTAL STATUS EXAMINATION: Alert and oriented to person, place, time, and situation. Mood is depressed. Affect is congruent. Thought process, oriented. Thought content linear. He has fair attention and concentration. Fair insight, judgment, and impulse control. I ASSESSED THIS PATIENT. PROVIDED THE PATIENT WITH: 1. Supportive psychotherapy. . Encouraging the patient to communicate and articulate his thoughts his communication skills as he states that he is very fearful of his current medical condition. 2. Also provided him with cognitive behavioral therapy and catastrophic thoughts, thoughts and positive coping skills . DIAGNOSIS: Bipolar I disorder, mixed, moderate without psychotic features. PLAN: Plan is to maintain medication compliance, positive coping skills behavioral psychotherapy . This clinician has reviewed the patient's chart. Discussed the treatment with treatment team. Liu Jackman PsyD. DR: LEEANNE JOB#: [id number] CC:
[2018-12-17 06:31] LABS: BASOPHILS % (AUTO) 1.4 % (0.0-2.0); EOSINOPHILS % (AUTO) 1.1 % (0.0-3.0); HEMATOCRIT 48.5 % (42.0-52.0); HEMOGLOBIN 16.1 G/DL (14.2-18.0); LYMPHOCYTES % (AUTO) 44.2 % (20.0-45.0); MEAN CORPUSCULAR VOLUME 92 FL (80-99); MONOCYTES % (AUTO) 7.6 % (1.0-10.0); NEUTROPHILS % (AUTO) 45.7 % (45.0-75.0); PLATELET COUNT 176 K/UL (150-450); RED BLOOD COUNT 5.26 M/UL (4.70-6.10); RED CELL DISTRIBUTION WIDTH 13.3 % (11.6-14.8); WHITE BLOOD COUNT 5.4 K/UL (4.8-10.8)
[2018-12-17 06:54] LABS: ANION GAP 6 mmol/L (5-15); BLOOD UREA NITROGEN 19 mg/dL (7-18); CALCIUM 8.7 MG/DL (8.5-10.1); CARBON DIOXIDE 29 MMOL/L (21-32); CHLORIDE 103 MMOL/L (98-107); CREATININE 1.1 MG/DL (0.55-1.30); POTASSIUM 4.6 MMOL/L (3.5-5.1); SODIUM 138 MMOL/L (136-145)
--- NOTE | 2018-12-17 07:01 | NUR ---
HAND-OFF: Report given to Forrest Guzman RN.
[2018-12-17 08:00] VITALS: BP 108/71
--- NOTE | 2018-12-17 08:55 | General Progress Note ---
Assessment/Plan Status: unchanged Assessment/Plan: (1) Lumbar DDD (2) Lumbar Spondylosis (3) Lumbar Radiculopathy (4) Morbid Obesity (5) Right knee pain (6) Right knee OA h/o ORIF We will continue patient on Dilaudid as needed. D/w Dr. Magaña and he concurred. Subjective Date patient seen: December 17, 2018 Time patient seen: 07:15 - am Allergies: Coded Allergies: ASPIRIN (Verified Allergy, Unknown, 07/14/18) KETOROLAC (Verified Allergy, Unknown, 07/14/18) PENICILLINS (Verified Allergy, Unknown, 07/14/18) Uncoded Allergies: PENICILIN (Allergy, Unknown, 12/14/18) Subjective REVIEW OF SYSTEMS: Denies rash, fever, chills, sweating, dizziness, drowsiness, blurred vision, sore throat, change in weight. No nausea, vomiting, diarrhea, or blood in the stool or urine. No bowel or bladder incontinence. No dysuria. He is complaining of low back pain SUBJECTIVE: Patient showing no signs of pain or distress. Continues to c/o pain which has been tolerated on the Dilaudid. No new complaints at this time. Objective Last 24 Hour Vital Signs Date Time Temp Pulse Resp B/P (MAP) Pulse Ox O2 Delivery O2 Flow Rate FiO2 12/17/18 07:29 76 19 95 Room Air 21 12/17/18 01:59 98.0 12/17/18 00:00 98.0 72 18 121/80 (94) 95 12/16/18 21:00 98.2 76 18 149/83 (105) 95 12/16/18 20:00 78 18 94 Room Air 21 12/16/18 16:00 97.9 74 21 143/87 (105) 97 12/16/18 11:39 97.6 66 16 127/69 (88) 95 Intake and Output 12/16/18 12/17/18 19:00 07:00 Intake Total 800 ml Balance 800 ml Intake Oral 800 ml # Voids 3 2 Laboratory Tests 12/17/18 05:20: White Blood Count 5.4, Red Blood Count 5.26, Hemoglobin 16.1, Hematocrit 48.5, Mean Corpuscular Volume 92, Mean Corpuscular Hemoglobin 30.7, Mean Corpuscular Hemoglobin Concent 33.3, Red Cell Distribution Width 13.3, Platelet Count 176, Mean Platelet Volume 6.9, Neutrophils (%) (Auto) 45.7, Lymphocytes (%) (Auto) 44.2, Monocytes (%) (Auto) 7.6, Eosinophils (%) (Auto) 1.1, Basophils (%) (Auto ) 1.4, Sodium Level 138, Potassium Level 4.6, Chloride Level 103, Carbon Dioxide Level 29, Anion Gap 6, Blood Urea Nitrogen 19H, Creatinine 1.1, Estimat Glomerular Filtration Rate > 60, Glucose Level 104, Calcium Level 8.7 Height (Feet): 5 Height (Inches): 10.00 Weight (Pounds): 409 Objective GENERAL: Alert, awake, and oriented x3. LUNGS: Decreased breath sounds bilaterally. HEART: S1 and S2, regular. ABDOMEN: Obese. EXTREMITIES: No cyanosis. No clubbing. No edema. NEURO: Weakness noted. Eliezer Nicole December 17, 2018 08:55
[2018-12-17] MEDS: LEVETIRACETAM 1000 MG IVPB SCH ×2 (09:29→21:32)
[2018-12-17] MEDS: DULoxetine 30mg cap ORAL SCH (09:29)
[2018-12-17] MEDS: Heparin 5000 units/ml inj SUBQ SCH ×2 (09:39→21:33)
--- NOTE | 2018-12-17 12:44 | NUR ---
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 ABDOMINAL WALL CELLULITIS . PERIPHERAL EDEMA VS: BP 108/71, P 81, T 97.7, RR 21, SpO2 94 BUN 19 IS:ZOFRAN 4mg HEPARIN SUBQ PLAVIX 75mG DILAUDID 2mg CYMBALTA 30mg LEVETIRACETAM 100ml IVPB MED/SURG STATUS
--- NOTE | 2018-12-17 13:26 | General Progress Note ---
Assessment/Plan Problem List: (1) Abdominal pannus ICD Codes: E65 - Localized adiposity SNOMED: 0846126629671 (2) Peripheral edema ICD Codes: R60.9 - Edema, unspecified SNOMED: 724730186 (3) Abdominal wall cellulitis ICD Codes: L03.311 - Cellulitis of abdominal wall SNOMED: 38309219 (4) Leg pain ICD Codes: M79.606 - Pain in leg, unspecified SNOMED: 60177122 (5) COPD (chronic obstructive pulmonary disease) ICD Codes: J44.9 - Chronic obstructive pulmonary disease, unspecified SNOMED: 46011284 (6) Seizures ICD Codes: R56.9 - Unspecified convulsions SNOMED: 05614015 (7) Morbid obesity ICD Codes: E66.01 - Morbid (severe) obesity due to excess calories SNOMED: 191218466 (8) Cerebrovascular accident ICD Codes: I63.9 - Cerebral infarction, unspecified SNOMED: 999810305 (9) Left-sided weakness ICD Codes: R53.1 - Weakness SNOMED: 449818046 Status: unchanged Assessment/Plan: pt diet neuro f/u wound care abx pain control cbc bmp am Subjective Constitutional: Reports: weakness Allergies: Coded Allergies: ASPIRIN (Verified Allergy, Unknown, 07/14/18) KETOROLAC (Verified Allergy, Unknown, 07/14/18) PENICILLINS (Verified Allergy, Unknown, 07/14/18) Uncoded Allergies: PENICILIN (Allergy, Unknown, 12/14/18) All Systems: reviewed and negative except above Subjective sleepy calm in bed Objective Last 24 Hour Vital Signs Date Time Temp Pulse Resp B/P (MAP) Pulse Ox O2 Delivery O2 Flow Rate FiO2 12/17/18 08:00 97.7 81 21 108/71 (83) 94 12/17/18 07:29 76 19 95 Room Air 21 12/17/18 01:59 98.0 12/17/18 00:00 98.0 72 18 121/80 (94) 95 12/16/18 21:00 98.2 76 18 149/83 (105) 95 12/16/18 20:00 78 18 94 Room Air 21 12/16/18 16:00 97.9 74 21 143/87 (105) 97 Intake and Output 12/16/18 12/17/18 19:00 07:00 Intake Total 800 ml Balance 800 ml Intake Oral 800 ml # Voids 3 2 Laboratory Tests 12/17/18 05:20: White Blood Count 5.4, Red Blood Count 5.26, Hemoglobin 16.1, Hematocrit 48.5, Mean Corpuscular Volume 92, Mean Corpuscular Hemoglobin 30.7, Mean Corpuscular Hemoglobin Concent 33.3, Red Cell Distribution Width 13.3, Platelet Count 176, Mean Platelet Volume 6.9, Neutrophils (%) (Auto) 45.7, Lymphocytes (%) (Auto) 44.2, Monocytes (%) (Auto) 7.6, Eosinophils (%) (Auto) 1.1, Basophils (%) (Auto ) 1.4, Sodium Level 138, Potassium Level 4.6, Chloride Level 103, Carbon Dioxide Level 29, Anion Gap 6, Blood Urea Nitrogen 19H, Creatinine 1.1, Estimat Glomerular Filtration Rate > 60, Glucose Level 104, Calcium Level 8.7 Height (Feet): 5 Height (Inches): 10.00 Weight (Pounds): 409 General Appearance: lethargic EENT: normal ENT inspection Neck: normal alignment Cardiovascular: normal peripheral pulses, normal rate, regular rhythm Respiratory/Chest: chest wall non-tender, lungs clear, normal breath sounds Abdomen: hypoactive bowel sounds, distended Extremities: swelling Edema: 2+ Arm (L), 2+ Arm (R), 2+ Leg (L), 2+ Leg (R), 2+ Pedal (L), 2+ Pedal ( R), 2+ Generalized Edema: moderate edema Neurologic: responsive, motor weakness Skin: normal pigmentation, warm/dry Ernesto Nicole DO December 17, 2018 13:26
--- NOTE | 2018-12-17 13:38 | Consultation ---
History of Present Illness General Date patient seen: December 17, 2018 Chief Complaint: General Complaint Referring physician: Dr. Josue Dixon Present Illness HPI 53 y/o M with hx of CVA, HTN, bipolar disorder w/ psychotic features, tobacco abuse, anxiety disorder, chronic pain, CHF, seizure disorder, COPD, morbid obesity, Dm2, HTN, SNF resident presents to ED on 12/14 with Left side pain, spasticity and weakness for 2 days Denied slurred speech, facial droop, CP, SOB, n/v/d upon admission. reports night sweats but no fever. Endorses new-onset headaches which he describes as migraines. NO neck stiffness some neck discomfort given a movable lump on the back of his neck. Allergies: Coded Allergies: ASPIRIN (Verified Allergy, Unknown, 07/14/18) KETOROLAC (Verified Allergy, Unknown, 07/14/18) PENICILLINS (Verified Allergy, Unknown, 07/14/18) Uncoded Allergies: PENICILIN (Allergy, Unknown, 12/14/18) Medication History Scheduled Amlodipine Besylate* (Amlodipine Besylate*), 5 MG ORAL DAILY, (Reported) Atorvastatin Calcium* (Lipitor*), 80 MG ORAL BEDTIME, (Reported) Clopidogrel* (Clopidogrel*), 75 MG ORAL DAILY, (Reported) Docusate Sodium* (Docusate Sodium*), 100 MG ORAL DAILY, (Reported) Duloxetine Hcl* (Cymbalta*), 30 MG ORAL DAILY, (Reported) Enoxaparin* (Lovenox*), 40 MG SUBQ DAILY, (Reported) Furosemide* (Lasix*), 10 MG ORAL Q8HR, (Reported) Gabapentin* (Gabapentin*), 900 MG ORAL THREE TIMES A DAY, (Reported) Lactobacillus Acidophilus (Acidophilus), 1 EACH PO BID, (Reported) Levetiracetam (Levetiracetam), 1,000 MG ORAL TID, (Reported) Nitroglycerin (Nitro-Bid*), 1 INCH TOPIC Q8HR, (Reported) Pantoprazole* (Pantoprazole*), 40 MG ORAL BID, (Reported) Sennosides (Senna), 2 TAB PO HS, (Reported) Scheduled PRN Acetaminophen* (Acetaminophen 325MG Tablet*), 650 MG ORAL Q4H PRN for Mild Pain/ Temp > 100.5, (Reported) Bisacodyl (Dulcolax), 10 MG RC DAILY PRN for IF MOM INEFFECTIVE, (Reported) Hydrocodone Bit/Acetaminophen 10-325* ([place] 10-325*), 1 TAB ORAL Q6HR PRN for For Pain, (Reported) Ipratropium/Albuterol Sulfate (DuoNeb 0.5-3(2.5)mg/3ml), 1 UNIT [id number] Q3HR PRN for Shortness of Breath, (Reported) Magnesium Hydroxide* (Milk Of Magnesia*), 30 ML ORAL BEDTIME PRN for IF DOCUSATE INEFFECTIVE, (Reported) Methocarbamol* (Methocarbamol*), 500 MG ORAL Q8HR PRN for For Pain, (Reported) Na Phos,M-B/Na Phos,Di-Ba* (Fleet Enema*), 133 ML RECTAL QOD PRN for IF DULCOLAX INEFFECTIVE, (Reported) Nitroglycerin (Nitrostat), 0.4 MG SL Q5M X3 DOSES PRN for CHEST PAIN, (Reported) Ondansetron* (Zofran*), 4 MG ORAL Q4HR PRN for Nausea & Vomiting, (Reported) Discontinued Medications Codeine/Promethazine Hcl* (Promethazine-Codeine Syrup*), 5 ML ORAL Q4H PRN for For Cough, (Reported) Discontinued Reason: Therapy completed Diltiazem Hcl (Diltiazem Hcl), 120 MG PO DAILY, (Reported) Discontinued Reason: Therapy completed Furosemide* (Lasix*), 40 MG ORAL DAILY, (Reported) Discontinued Reason: Prescription changed Gabapentin* (Gabapentin*), 600 MG ORAL THREE TIMES A DAY, (Reported) Discontinued Reason: Prescription changed Isosorbide Dinitrate (Isosorbide Dinitrate), 30 MG PO DAILY, (Reported) Discontinued Reason: Therapy completed Isosorbide Mononitrate (Isosorbide Mononitrate Er), 30 MG PO DAILY, (Reported) Discontinued Reason: Therapy completed Levetiracetam (Keppra Xr), 500 MG ORAL BID, (Reported) Discontinued Reason: Prescription changed Morphine Sulfate (Morphine Sulfate Er), 15 MG PO DAILY, (Reported) Discontinued Reason: Therapy completed Polyethylene Glycol 3350* (Miralax*), 17 GM ORAL DAILY PRN for Constipation, ( Reported) Discontinued Reason: Therapy completed Theophylline Anhydrous (George-24), 300 MG PO DAILY, (Reported) Discontinued Reason: Therapy completed Tiotropium [place] (Spiriva), 0 INH DAILY, (Reported) Discontinued Reason: Therapy completed Patient History Healthcare decision maker N Resuscitation status Full Code Advanced Directive on File No Patient History Narrative PMhx: as above Shx: The patient denies history of alcohol use or illicit substance use. The patient is a 53-year-old male patient who is from [facility]. Financially sustained through [employer]. Positive for smoke. Fhx: non contributory Review of Systems All Other Systems: negative except mentioned in HPI Physical Exam Physical Exam Narrative GENERAL: Calm in bed, oriented x3, in slight distress, secondary to weakness. CARDIOVASCULAR: No murmurs. LUNGS: Poor air exchange. ABDOMEN: Bowel sounds distant. EXTREMITIES: Show no cyanosis or clubbing. A 1+ edema in bilateral lower extremity. Large pannus noted in the abdomen area. NEUROLOGIC: The patient moves all extremities, slightly weak. Last 24 Hour Vital Signs Date Time Temp Pulse Resp B/P (MAP) Pulse Ox O2 Delivery O2 Flow Rate FiO2 12/17/18 08:00 97.7 81 21 108/71 (83) 94 12/17/18 07:29 76 19 95 Room Air 21 12/17/18 01:59 98.0 12/17/18 00:00 98.0 72 18 121/80 (94) 95 12/16/18 21:00 98.2 76 18 149/83 (105) 95 12/16/18 20:00 78 18 94 Room Air 21 12/16/18 16:00 97.9 74 21 143/87 (105) 97 Intake and Output 12/16/18 12/17/18 19:00 07:00 Intake Total 800 ml Balance 800 ml Intake Oral 800 ml # Voids 3 2 Laboratory Tests Test 12/17/18 05:20 White Blood Count 5.4 K/UL (4.8-10.8) Red Blood Count 5.26 M/UL (4.70-6.10) Hemoglobin 16.1 G/DL (14.2-18.0) Hematocrit 48.5 % (42.0-52.0) Mean Corpuscular Volume 92 FL (80-99) Mean Corpuscular Hemoglobin 30.7 PG (27.0-31.0) Mean Corpuscular Hemoglobin Concent 33.3 G/DL (32.0-36.0) Red Cell Distribution Width 13.3 % (11.6-14.8) Platelet Count 176 K/UL (150-450) Mean Platelet Volume 6.9 FL (6.5-10.1) Neutrophils (%) (Auto) 45.7 % (45.0-75.0) Lymphocytes (%) (Auto) 44.2 % (20.0-45.0) Monocytes (%) (Auto) 7.6 % (1.0-10.0) Eosinophils (%) (Auto) 1.1 % (0.0-3.0) Basophils (%) (Auto) 1.4 % (0.0-2.0) Sodium Level 138 MMOL/L (136-145) Potassium Level 4.6 MMOL/L (3.5-5.1) Chloride Level 103 MMOL/L (98-107) Carbon Dioxide Level 29 MMOL/L (21-32) Anion Gap 6 mmol/L (5-15) Blood Urea Nitrogen 19 mg/dL (7-18) H Creatinine 1.1 MG/DL (0.55-1.30) Estimat Glomerular Filtration Rate > 60 mL/min (>60) Glucose Level 104 MG/DL (74-106) Calcium Level 8.7 MG/DL (8.5-10.1) Height (Feet): 5 Height (Inches): 10.00 Weight (Pounds): 409 Medications Current Medications Medications (Trade) Dose Ordered Sig/Luis Route PRN Reason Start Time Stop Time Status Last Admin Dose Admin Acetaminophen (Tylenol) 650 mg Q4H PRN ORAL fever 12/15/18 14:54 01/14/19 14:53 Albuterol/ Ipratropium (Albuterol/ Ipratropium) 3 ml Q4H PRN HHN Shortness of Breath 12/15/18 14:54 12/20/18 14:53 Atorvastatin Calcium (Lipitor) 80 mg BEDTIME ORAL 12/15/18 21:00 01/14/19 20:59 12/16/18 21:23 Clonidine HCl (Catapres Tab) 0.1 mg Q4H PRN ORAL For High Blood Pressure 12/15/18 14:56 01/14/19 14:55 Clopidogrel Bisulfate (Plavix) 75 mg DAILY ORAL 12/16/18 09:00 01/14/19 08:59 12/17/18 09:30 Dextrose (Dextrose 50%) 25 ml Q30M PRN IV Hypoglycemia 12/15/18 15:15 01/13/19 23:44 Dextrose (Dextrose 50%) 50 ml Q30M PRN IV Hypoglycemia 12/15/18 15:15 01/13/19 23:44 Duloxetine HCl (Cymbalta) 30 mg DAILY ORAL 12/16/18 09:00 01/14/19 08:59 12/17/18 09:29 Gabapentin (Neurontin) 600 mg THREE TIMES A DAY ORAL 12/15/18 18:00 01/14/19 08:59 12/17/18 09:29 Heparin Sodium (Porcine) (Heparin 5000 units/ml) 5,000 units EVERY 12 HOURS SUBQ 12/15/18 21:00 01/14/19 08:59 12/17/18 09:39 Hydromorphone HCl (Dilaudid) 2 mg Q4H PRN IV pain 7-10 12/15/18 14:55 12/22/18 14:54 12/17/18 09:30 Levetiracetam 100 ml @ 400 mls/hr Q12HR IVPB 12/15/18 18:30 01/14/19 18:29 12/17/18 09:29 Lorazepam (Ativan 2mg/ml 1ml) 0.5 mg Q4H PRN IV For Anxiety 12/15/18 14:55 12/22/18 14:54 Lorazepam (Ativan 2mg/ml 1ml) 1 mg Q4H PRN IVP For Seizures 12/15/18 18:30 12/22/18 18:29 12/15/18 18:32 Nitroglycerin (Ntg) 0.4 mg Q5M X 3 DOSES PRN SL Prn Chest Pain 12/15/18 14:45 01/13/19 23:44 Ondansetron HCl (Zofran) 4 mg Q6H PRN IVP Nausea & Vomiting 12/15/18 14:55 01/14/19 14:54 12/17/18 10:19 Polyethylene Glycol (Miralax) 17 gm HSPRN PRN ORAL Constipation 12/15/18 14:55 01/14/19 14:54 Promethazine HCl/ Codeine (Phenergan with Codeine) 5 ml Q4H PRN ORAL For Cough 12/15/18 14:55 01/14/19 14:54 Temazepam (Restoril) 15 mg HSPRN PRN ORAL Insomnia 12/15/18 14:55 12/22/18 14:54 Trazodone HCl (Desyrel) 100 mg BEDTIME ORAL 12/15/18 21:00 01/14/19 20:59 12/16/18 21:23 Assessment/Plan Assessment/Plan: Abx: None Assessment: L side weakness/spasticity- thought be 2ry to seizures- r/O CVA- no active infectious process at present (pt afebrile- doubt meningitis at this moment) Afebrile No leukocytosis -CXR: No acute findings CVA HTN bipolar disorder w/ psychotic features tobacco abuse anxiety disorder chronic pain CHF seizure disorder COPD morbid obesity Dm2 HTN SNF resident Plan: -Continue to monitor off abx -f/u cx -Monitor CBC/CMP, temperatures -neuro f/u- plan for CT head, include neck as lump in back of neck; patient may not fit on CT given weight. -aspiration precautions Thank you for this consulation. Willc continue to follow along with you. Discussed with Alexa Robins M.D. December 17, 2018 13:38
--- NOTE | 2018-12-17 13:51 | Pulmonology Progress Note ---
Assessment/Plan Problems: (1) Seizures (2) Cerebrovascular accident (3) Left-sided weakness (4) COPD (chronic obstructive pulmonary disease) (5) Right heart failure (6) Lumbar spondylosis (7) ADALBERTO (obstructive sleep apnea) (8) Morbid obesity Assessment/Plan f/u neuro recommendations plastic surgery contacted, will see shortly respiratory treatment titrate fio2 to sat of 92% dvt prophylaxis Subjective ROS Limited/Unobtainable: No Constitutional: Reports: no symptoms HEENT: Repors: no symptoms Respiratory: Reports: no symptoms Allergies: Coded Allergies: ASPIRIN (Verified Allergy, Unknown, 07/14/18) KETOROLAC (Verified Allergy, Unknown, 07/14/18) PENICILLINS (Verified Allergy, Unknown, 07/14/18) Uncoded Allergies: PENICILIN (Allergy, Unknown, 12/14/18) Objective Last 24 Hour Vital Signs Date Time Temp Pulse Resp B/P (MAP) Pulse Ox O2 Delivery O2 Flow Rate FiO2 12/17/18 08:00 97.7 81 21 108/71 (83) 94 12/17/18 07:29 76 19 95 Room Air 21 12/17/18 01:59 98.0 12/17/18 00:00 98.0 72 18 121/80 (94) 95 12/16/18 21:00 98.2 76 18 149/83 (105) 95 12/16/18 20:00 78 18 94 Room Air 21 12/16/18 16:00 97.9 74 21 143/87 (105) 97 Intake and Output 12/16/18 12/17/18 19:00 07:00 Intake Total 800 ml Balance 800 ml Intake Oral 800 ml # Voids 3 2 General Appearance: WD/WN HEENT: normocephalic, anicteric Respiratory/Chest: chest wall non-tender, normal breath sounds Cardiovascular: normal peripheral pulses, normal rate Abdomen: normal bowel sounds, soft, non tender Genitourinary: normal external genitalia Skin: no rash Microbiology Date/Time Source Procedure Growth Status 12/14/18 22:00 Nasal Nares MRSA Culture - Final NO METHICILLIN RESISTANT STAPH AUREUS... Complete 12/15/18 21:33 Rectum - Final NO CARBAPENEM-RESISTANT ENTEROBACTERI... Complete 12/14/18 22:00 Rectum VRE Culture - Final NO VANCOMYCIN RESISTANT ENTEROCOCCUS ... Complete Laboratory Tests 12/17/18 05:20: White Blood Count 5.4, Red Blood Count 5.26, Hemoglobin 16.1, Hematocrit 48.5, Mean Corpuscular Volume 92, Mean Corpuscular Hemoglobin 30.7, Mean Corpuscular Hemoglobin Concent 33.3, Red Cell Distribution Width 13.3, Platelet Count 176, Mean Platelet Volume 6.9, Neutrophils (%) (Auto) 45.7, Lymphocytes (%) (Auto) 44.2, Monocytes (%) (Auto) 7.6, Eosinophils (%) (Auto) 1.1, Basophils (%) (Auto ) 1.4, Sodium Level 138, Potassium Level 4.6, Chloride Level 103, Carbon Dioxide Level 29, Anion Gap 6, Blood Urea Nitrogen 19H, Creatinine 1.1, Estimat Glomerular Filtration Rate > 60, Glucose Level 104, Calcium Level 8.7 Current Medications Medications (Trade) Dose Ordered Sig/Luis Route PRN Reason Start Time Stop Time Status Last Admin Dose Admin Acetaminophen (Tylenol) 650 mg Q4H PRN ORAL fever 12/15/18 14:54 01/14/19 14:53 Albuterol/ Ipratropium (Albuterol/ Ipratropium) 3 ml Q4H PRN HHN Shortness of Breath 12/15/18 14:54 12/20/18 14:53 Atorvastatin Calcium (Lipitor) 80 mg BEDTIME ORAL 12/15/18 21:00 01/14/19 20:59 12/16/18 21:23 Clonidine HCl (Catapres Tab) 0.1 mg Q4H PRN ORAL For High Blood Pressure 12/15/18 14:56 01/14/19 14:55 Clopidogrel Bisulfate (Plavix) 75 mg DAILY ORAL 12/16/18 09:00 01/14/19 08:59 12/17/18 09:30 Dextrose (Dextrose 50%) 25 ml Q30M PRN IV Hypoglycemia 12/15/18 15:15 01/13/19 23:44 Dextrose (Dextrose 50%) 50 ml Q30M PRN IV Hypoglycemia 12/15/18 15:15 01/13/19 23:44 Duloxetine HCl (Cymbalta) 30 mg DAILY ORAL 12/16/18 09:00 01/14/19 08:59 12/17/18 09:29 Gabapentin (Neurontin) 600 mg THREE TIMES A DAY ORAL 12/15/18 18:00 01/14/19 08:59 12/17/18 13:24 Heparin Sodium (Porcine) (Heparin 5000 units/ml) 5,000 units EVERY 12 HOURS SUBQ 12/15/18 21:00 01/14/19 08:59 12/17/18 09:39 Hydromorphone HCl (Dilaudid) 2 mg Q4H PRN IV pain 7-10 12/15/18 14:55 12/22/18 14:54 12/17/18 13:25 Levetiracetam 100 ml @ 400 mls/hr Q12HR IVPB 12/15/18 18:30 01/14/19 18:29 12/17/18 09:29 Lorazepam (Ativan 2mg/ml 1ml) 0.5 mg Q4H PRN IV For Anxiety 12/15/18 14:55 12/22/18 14:54 Lorazepam (Ativan 2mg/ml 1ml) 1 mg Q4H PRN IVP For Seizures 12/15/18 18:30 12/22/18 18:29 12/15/18 18:32 Nitroglycerin (Ntg) 0.4 mg Q5M X 3 DOSES PRN SL Prn Chest Pain 12/15/18 14:45 01/13/19 23:44 Ondansetron HCl (Zofran) 4 mg Q6H PRN IVP Nausea & Vomiting 12/15/18 14:55 01/14/19 14:54 12/17/18 10:19 Polyethylene Glycol (Miralax) 17 gm HSPRN PRN ORAL Constipation 12/15/18 14:55 01/14/19 14:54 Promethazine HCl/ Codeine (Phenergan with Codeine) 5 ml Q4H PRN ORAL For Cough 12/15/18 14:55 01/14/19 14:54 Temazepam (Restoril) 15 mg HSPRN PRN ORAL Insomnia 12/15/18 14:55 12/22/18 14:54 Trazodone HCl (Desyrel) 100 mg BEDTIME ORAL 12/15/18 21:00 01/14/19 20:59 12/16/18 21:23 Bill Dixon MD December 17, 2018 13:51
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
--- NOTE | 2018-12-17 15:55 | NUR ---
*-* NO INSURANCE INFORMATION UNABLE TO SEND CLINICALS OR REVIEWS *-*
[2018-12-17 16:00] VITALS: BP 114/78
[2018-12-17] MEDS ORDERED: Isovue-300 100ml vial INJ PRN ×2 (16:15)
--- NOTE | 2018-12-17 16:45 | Progress Note ---
DATE: 12/17/2018 SUBJECTIVE: This is a 53-year-old male patient with . He has chronic pain, but he also has of anxiety and depression. DIAGNOSES: 1. Major depressive disorder, mild, recurrent without psychotic features. 2. Rule out generalized anxiety disorder. PLAN: Treat him with Neurontin 600 mg three times a day, Cymbalta 30 mg daily, Ativan 0.5 mg IV q.4 h., trazodone 100 mg at bedtime. Provided him with 20 minutes of reality-based supportive psychotherapy. Chart reviewed. Discussed with staff. Seen and assessed in his room. Laney Mcghee M.D. DR: JONATHAN JOB#: [id number] CC:
--- NOTE | 2018-12-17 18:22 | NUR ---
NURSE NOTES: RN RECEIVED CALL FROM DR RAMIREZ. PER MD, HE WILL BE SEEING PT TOMORROW. UNTIL SEEN BY MD, APPLY BETADINE TO LEFT LOWER EXTREMITY WOUNDS. RN EDUCATED PT ON NEW ORDER AND DID DRESSING CHANGE. WILL CONTINUE TO MONITOR.
--- NOTE | 2018-12-17 18:47 | NUR ---
NURSE NOTES: RN LEFT MESSAGE REGARDING ORDER FOR CT HEAD AND NECK. PT UNABLE TO FIT INTO CT MACHINE.
--- NOTE | 2018-12-17 19:13 | Cardiology Progress Note ---
Assessment/Plan Assessment/Plan The patient is seen and examined, full cardiac consult will be dictated soon. Objective Last 24 Hour Vital Signs Date Time Temp Pulse Resp B/P (MAP) Pulse Ox O2 Delivery O2 Flow Rate FiO2 12/17/18 16:00 99.3 68 20 114/78 (90) 95 12/17/18 08:00 97.7 81 21 108/71 (83) 94 12/17/18 07:29 76 19 95 Room Air 21 12/17/18 01:59 98.0 12/17/18 00:00 98.0 72 18 121/80 (94) 95 12/16/18 21:00 98.2 76 18 149/83 (105) 95 12/16/18 20:00 78 18 94 Room Air 21 Intake and Output 12/16/18 12/17/18 19:00 07:00 Intake Total 800 ml Balance 800 ml Intake Oral 800 ml # Voids 3 2 # Bowel Movements 1 Laboratory Tests Test 12/17/18 05:20 White Blood Count 5.4 K/UL (4.8-10.8) Red Blood Count 5.26 M/UL (4.70-6.10) Hemoglobin 16.1 G/DL (14.2-18.0) Hematocrit 48.5 % (42.0-52.0) Mean Corpuscular Volume 92 FL (80-99) Mean Corpuscular Hemoglobin 30.7 PG (27.0-31.0) Mean Corpuscular Hemoglobin Concent 33.3 G/DL (32.0-36.0) Red Cell Distribution Width 13.3 % (11.6-14.8) Platelet Count 176 K/UL (150-450) Mean Platelet Volume 6.9 FL (6.5-10.1) Neutrophils (%) (Auto) 45.7 % (45.0-75.0) Lymphocytes (%) (Auto) 44.2 % (20.0-45.0) Monocytes (%) (Auto) 7.6 % (1.0-10.0) Eosinophils (%) (Auto) 1.1 % (0.0-3.0) Basophils (%) (Auto) 1.4 % (0.0-2.0) Sodium Level 138 MMOL/L (136-145) Potassium Level 4.6 MMOL/L (3.5-5.1) Chloride Level 103 MMOL/L (98-107) Carbon Dioxide Level 29 MMOL/L (21-32) Anion Gap 6 mmol/L (5-15) Blood Urea Nitrogen 19 mg/dL (7-18) H Creatinine 1.1 MG/DL (0.55-1.30) Estimat Glomerular Filtration Rate > 60 mL/min (>60) Glucose Level 104 MG/DL (74-106) Calcium Level 8.7 MG/DL (8.5-10.1) Microbiology Date/Time Source Procedure Growth Status 12/14/18 22:00 Nasal Nares MRSA Culture - Final NO METHICILLIN RESISTANT STAPH AUREUS... Complete 12/15/18 21:33 Rectum - Final NO CARBAPENEM-RESISTANT ENTEROBACTERI... Complete 12/14/18 22:00 Rectum VRE Culture - Final NO VANCOMYCIN RESISTANT ENTEROCOCCUS ... Complete Carlos Martins MD December 17, 2018 19:13
--- NOTE | 2018-12-17 19:27 | NUR ---
HAND-OFF: Report given to Sharyn SCHULZ RN.
--- NOTE | 2018-12-17 19:29 | NUR ---
NURSE NOTES: Received patient in bed, sleeping, no s/s of acute distress, breathing even and unlabored, IV access asymptomatic, dressing reinforced. Per report will desire Q4 pain med at 2130 tonight. Will monitor pain when patient wakes up. LE wounds were cleaned per previous shift report. Will continue to monitor. Fall and safety precautions taken, seizure precautions in place. will continue to monitor.
[2018-12-17 20:00] VITALS: BP 118/80
[2018-12-17] MEDS: Atorvastatin 80mg tab ORAL SCH (21:33)
[2018-12-17] MEDS: TraZODone 100mg tab ORAL SCH (21:33)
[2018-12-18] VITALS: BP 146/71
--- NOTE | 2018-12-18 00:42 | Neurology Progress Note ---
Interim History Interim History ROS Limited/Unobtainable: No Complaints: Left sided weakness/ spasticity Events: Improved strength in left arm, hand still weak Interim History This visit was performed on December 17, [address] Amador Brewster Review of Systems All Systems: reviewed and negative except above Objective Physical Exam Last Vital Signs Date Time Temp Pulse Resp B/P (MAP) Pulse Ox O2 Delivery O2 Flow Rate FiO2 12/17/18 22:03 99.3 12/17/18 20:06 72 18 95 Room Air 21 12/17/18 20:00 118/80 (93) Laboratory Tests Test 12/17/18 05:20 White Blood Count 5.4 K/UL (4.8-10.8) Red Blood Count 5.26 M/UL (4.70-6.10) Hemoglobin 16.1 G/DL (14.2-18.0) Hematocrit 48.5 % (42.0-52.0) Mean Corpuscular Volume 92 FL (80-99) Mean Corpuscular Hemoglobin 30.7 PG (27.0-31.0) Mean Corpuscular Hemoglobin Concent 33.3 G/DL (32.0-36.0) Red Cell Distribution Width 13.3 % (11.6-14.8) Platelet Count 176 K/UL (150-450) Mean Platelet Volume 6.9 FL (6.5-10.1) Neutrophils (%) (Auto) 45.7 % (45.0-75.0) Lymphocytes (%) (Auto) 44.2 % (20.0-45.0) Monocytes (%) (Auto) 7.6 % (1.0-10.0) Eosinophils (%) (Auto) 1.1 % (0.0-3.0) Basophils (%) (Auto) 1.4 % (0.0-2.0) Sodium Level 138 MMOL/L (136-145) Potassium Level 4.6 MMOL/L (3.5-5.1) Chloride Level 103 MMOL/L (98-107) Carbon Dioxide Level 29 MMOL/L (21-32) Anion Gap 6 mmol/L (5-15) Blood Urea Nitrogen 19 mg/dL (7-18) H Creatinine 1.1 MG/DL (0.55-1.30) Estimat Glomerular Filtration Rate > 60 mL/min (>60) Glucose Level 104 MG/DL (74-106) Calcium Level 8.7 MG/DL (8.5-10.1) Neurologic Exam Mental Status: awake, alert, oriented x4, normal cognition, good mathematical skills, normal recent memory, normal remote memory, preserved visuospatial function Speech: normal speech, no dysarthia Language: normal language, no aphasia Cranial Nerve II: fundus normal, visual bonilla, no papilledema Cranial Nerves III, IV, : PERRLA, EOMI, pupils Cranial Nerve V: normal facial sensations, temporales function normal, masseters function normal, pterygoids function normal Cranial Nerve VII: no facial asymmetry, normal facial expressions Cranial Nerve VIII: normal hearing, no nystagmus Cranial Nerve IX: normal palate elevation, gag response Cranial Nerve X: no voice hoarseness Cranial Nerve XI: SCM symmetric, trapezii function normal Cranial Nerve XII: tongue midline, no tongue atrophy/fasciculations Motor System: normal muscle tone, no involuntary movement, no muscle wasting Sensory: normal pinprick, normal light touch, normal position sense, normal graphesthesia Coordination: negative Romberg test Deep Tendon Reflexes: 1+ bicep (L), 1+ bicep (R), 1+ tricep (L), 1+ tricep (R) , 1+ brachioradialis (L), 1+ brachioradialis (R), 1+ knee (L), 1+ knee (R), 1+ ankle (L), 1+ ankle (R) Reflexes: flexor plantar (L), flexor plantar (R); extensor plantar (L), extensor plantar (R) Objective Left arm, predominantly hand weakness and spasm at this time. Alert and oriented, intermittently agitated / irritable Ambulatory with cellulitis persisting on RLE He does not have proximal left arm weakness at this time or facial weakness. Impression/Recommendations Problems: (1) Seizures Assessment & Plan: Was previously on 500mg BID Keppra - cannot describe what his seizures are like and denies any preceeding symptoms. Will commence IV Keppra 1000mg BID, Ativan 2mg STAT for appearance of simple partial seizure activity Keppra level will take too long to check to be clinically relevant Maintain SBP<140 Q4 Hour Neuro Checks Ativan 2mg PRN for seizure activity CT Head w/o contrast when able to rule out CVA - also for consideration of MRI if CT negative. - low suspicion of CVA due to normotensive status without risk factors of elevated BP/ HgBA1c or thyroid dysfunction. Na 135-145 Continue pain management Consider commencement of Gabapentin for arm symptoms as well. (2) Morbid obesity (3) COPD (chronic obstructive pulmonary disease) (4) Uncontrolled seizures (5) Left-sided weakness (6) Knee osteomyelits, right Status: stable Recommendations Continue neuroleptic meds as per psychiatry Some increased agitation - consider additiona 25mg Seroquel PRN for agitation Maintain SBP<140 PT/OT evals CT/ MRI follow up to rule out stroke EEG as outpatient Vicky Taylor N.P. December 18, 2018 00:42
--- NOTE | 2018-12-18 07:14 | NUR ---
NURSE NOTES: Pt refused blood work. Will endorse to am shift.
--- NOTE | 2018-12-18 07:30 | NUR ---
HAND-OFF: Report given to MICAELA Burroughs.
--- NOTE | 2018-12-18 07:40 | NUR ---
NURSE NOTES: Patient received resting in bed. Alert and oriented, breathing unlabored on room air. Denies pain or SOB at this time. Patient observed to be ambulatory with steady gait. Seizure precautions maintained with padded side rails. IV site on left arm patent and intact. Bed locked in lowest position, call light placed within reach. Will continue to monitor.
[2018-12-18] MEDS: LEVETIRACETAM 1000 MG IVPB SCH ×2 (08:03→21:55)
[2018-12-18] MEDS: DULoxetine 30mg cap ORAL SCH (08:03)
[2018-12-18] MEDS: Heparin 5000 units/ml inj SUBQ SCH ×2 (08:12→22:13)
--- NOTE | 2018-12-18 08:38 | NUR ---
CONCERNING CT...MICAELA RODRIGUEZ HAS BEEN INFORMED THAT THE PT EXCEEDS THE WEIGHT LIMIT OF THE CT TABLE AND CAN NOT BE SCANNED. THE RN WILL INFORM DR. CARRERA. TJ 08:39
--- NOTE | 2018-12-18 08:50 | General Progress Note ---
Assessment/Plan Status: stable Assessment/Plan: (1) Lumbar DDD (2) Lumbar Spondylosis (3) Lumbar Radiculopathy (4) Morbid Obesity (5) Right knee pain (6) Right knee OA h/o ORIF We will continue patient on Dilaudid as needed. D/w Dr. Magaña and he concurred. Subjective Date patient seen: December 18, 2018 Time patient seen: 08:15 - am Allergies: Coded Allergies: ASPIRIN (Verified Allergy, Unknown, 07/14/18) KETOROLAC (Verified Allergy, Unknown, 07/14/18) PENICILLINS (Verified Allergy, Unknown, 07/14/18) Uncoded Allergies: PENICILIN (Allergy, Unknown, 12/14/18) Subjective REVIEW OF SYSTEMS: Denies rash, fever, chills, sweating, dizziness, drowsiness, blurred vision, sore throat, change in weight. No nausea, vomiting, diarrhea, or blood in the stool or urine. No bowel or bladder incontinence. No dysuria. He is complaining of low back pain SUBJECTIVE: Patient is in bed and showing no signs of pain or distress. His pain has been at a moderate level tolerated on the Dilaudid. He has no new complaints at this time. Objective Last 24 Hour Vital Signs Date Time Temp Pulse Resp B/P (MAP) Pulse Ox O2 Delivery O2 Flow Rate FiO2 12/18/18 05:57 97.6 12/18/18 00:00 97.6 72 18 146/71 (96) 94 12/17/18 20:06 72 18 95 Room Air 21 12/17/18 20:00 98.0 83 18 118/80 (93) 92 12/17/18 16:00 99.3 68 20 114/78 (90) 95 Intake and Output 12/17/18 12/18/18 18:59 06:59 Intake Total 900 ml 100 ml Balance 900 ml 100 ml Intake Oral 800 ml IV Total 100 ml 100 ml # Voids 3 3 # Bowel Movements 1 Height (Feet): 5 Height (Inches): 10.00 Weight (Pounds): 409 Objective GENERAL: Alert, awake, and oriented x3. LUNGS: Decreased breath sounds bilaterally. HEART: S1 and S2, regular. ABDOMEN: Obese. EXTREMITIES: No cyanosis. No clubbing. No edema. NEURO: No changes. Eliezer Nicole December 18, 2018 08:50
--- NOTE | 2018-12-18 11:14 | NUR ---
*-* NO INSURANCE INFORMATION IN THE BAR TO SEND CLINICALS OR REVIEWS *-* SPOKE TO AZEEM IN ADMITTING AND SHE STATED THAT [facility] STATED NO NEED TO SEND CLINICALS ANYWHERE VIA EMAIL.
[2018-12-18 12:00] VITALS: BP 120/85
--- NOTE | 2018-12-18 12:19 | Pulmonology Progress Note ---
Assessment/Plan Problems: (1) Seizures (2) Cerebrovascular accident (3) Left-sided weakness (4) COPD (chronic obstructive pulmonary disease) (5) Right heart failure (6) Lumbar spondylosis (7) ADALBERTO (obstructive sleep apnea) (8) Morbid obesity Assessment/Plan f/u neuro recommendations plastic surgery contacted, will do the procedure after clearance by cardio. I cleared him as pulmonary. respiratory treatment titrate fio2 to sat of 92% dvt prophylaxis Subjective ROS Limited/Unobtainable: No Constitutional: Reports: no symptoms HEENT: Repors: no symptoms Respiratory: Reports: no symptoms Allergies: Coded Allergies: ASPIRIN (Verified Allergy, Unknown, 07/14/18) KETOROLAC (Verified Allergy, Unknown, 07/14/18) PENICILLINS (Verified Allergy, Unknown, 07/14/18) Uncoded Allergies: PENICILIN (Allergy, Unknown, 12/14/18) Objective Last 24 Hour Vital Signs Date Time Temp Pulse Resp B/P (MAP) Pulse Ox O2 Delivery O2 Flow Rate FiO2 12/18/18 12:00 97.4 76 20 120/85 (97) 95 12/18/18 07:58 77 20 94 Room Air 21 12/18/18 05:57 97.6 12/18/18 00:00 97.6 72 18 146/71 (96) 94 12/17/18 20:06 72 18 95 Room Air 21 12/17/18 20:00 98.0 83 18 118/80 (93) 92 12/17/18 16:00 99.3 68 20 114/78 (90) 95 Intake and Output 12/17/18 12/18/18 19:00 07:00 Intake Total 900 ml 100 ml Balance 900 ml 100 ml Intake Oral 800 ml IV Total 100 ml 100 ml # Voids 3 3 # Bowel Movements 1 General Appearance: WD/WN HEENT: normocephalic, atraumatic Respiratory/Chest: chest wall non-tender, normal breath sounds Cardiovascular: normal rate, regularly irregular, no JVD Abdomen: soft, non tender Extremities: no clubbing Skin: no lesions Microbiology Date/Time Source Procedure Growth Status 12/15/18 21:33 Rectum - Final NO CARBAPENEM-RESISTANT ENTEROBACTERI... Complete Current Medications Medications (Trade) Dose Ordered Sig/Luis Route PRN Reason Start Time Stop Time Status Last Admin Dose Admin Acetaminophen (Tylenol) 650 mg Q4H PRN ORAL fever 5/21/19 14:54 01/14/19 14:53 Albuterol/ Ipratropium (Albuterol/ Ipratropium) 3 ml Q4H PRN HHN Shortness of Breath 12/15/18 14:54 12/20/18 14:53 Atorvastatin Calcium (Lipitor) 80 mg BEDTIME ORAL 12/15/18 21:00 01/14/19 20:59 12/17/18 21:33 Clonidine HCl (Catapres Tab) 0.1 mg Q4H PRN ORAL For High Blood Pressure 12/15/18 14:56 01/14/19 14:55 Clopidogrel Bisulfate (Plavix) 75 mg DAILY ORAL 12/16/18 09:00 01/14/19 08:59 12/18/18 08:03 Dextrose (Dextrose 50%) 25 ml Q30M PRN IV Hypoglycemia 12/15/18 15:15 01/13/19 23:44 Dextrose (Dextrose 50%) 50 ml Q30M PRN IV Hypoglycemia 12/15/18 15:15 01/13/19 23:44 Duloxetine HCl (Cymbalta) 30 mg DAILY ORAL 12/16/18 09:00 01/14/19 08:59 12/18/18 08:03 Gabapentin (Neurontin) 600 mg THREE TIMES A DAY ORAL 12/15/18 18:00 01/14/19 08:59 12/18/18 08:03 Heparin Sodium (Porcine) (Heparin 5000 units/ml) 5,000 units EVERY 12 HOURS SUBQ 12/15/18 21:00 01/14/19 08:59 12/18/18 08:12 Hydromorphone HCl (Dilaudid) 2 mg Q4H PRN IV pain 7-10 12/15/18 14:55 12/22/18 14:54 12/18/18 09:27 Levetiracetam 100 ml @ 400 mls/hr Q12HR IVPB 12/15/18 18:30 01/14/19 18:29 12/18/18 08:03 Lorazepam (Ativan 2mg/ml 1ml) 0.5 mg Q4H PRN IV For Anxiety 12/15/18 14:55 12/22/18 14:54 Lorazepam (Ativan 2mg/ml 1ml) 1 mg Q4H PRN IVP For Seizures 12/15/18 18:30 12/22/18 18:29 12/15/18 18:32 Nitroglycerin (Ntg) 0.4 mg Q5M X 3 DOSES PRN SL Prn Chest Pain 12/15/18 14:45 01/13/19 23:44 Ondansetron HCl (Zofran) 4 mg Q6H PRN IVP Nausea & Vomiting 12/15/18 14:55 01/14/19 14:54 12/17/18 10:19 Polyethylene Glycol (Miralax) 17 gm HSPRN PRN ORAL Constipation 12/15/18 14:55 01/14/19 14:54 Promethazine HCl/ Codeine (Phenergan with Codeine) 5 ml Q4H PRN ORAL For Cough 12/15/18 14:55 01/14/19 14:54 Temazepam (Restoril) 15 mg HSPRN PRN ORAL Insomnia 12/15/18 14:55 12/22/18 14:54 Trazodone HCl (Desyrel) 100 mg BEDTIME ORAL 12/15/18 21:00 01/14/19 20:59 12/17/18 21:33 Bill Dixon MD December 18, 2018 12:19
--- NOTE | 2018-12-18 13:21 | Infectious Diseases Prog Note ---
Assessment/Plan Assessment/Plan Abx: None Assessment: L side weakness/spasticity- thought be 2ry to seizures- r/O CVA- no active infectious process at present (pt afebrile- doubt meningitis at this moment) Afebrile No leukocytosis -CXR: No acute findings CVA HTN bipolar disorder w/ psychotic features tobacco abuse anxiety disorder chronic pain CHF seizure disorder COPD morbid obesity Dm2 HTN SNF resident Plan: -Continue to monitor off abx -f/u cx -Monitor CBC/CMP, temperatures -neuro f/u- plan for CT head, include neck as lump in back of neck; however pt did not fit on CT scan machine due to weight -aspiration precautions Thank you for this consulation. [facility] continue to follow along with you. Subjective Allergies: Coded Allergies: ASPIRIN (Verified Allergy, Unknown, 07/14/18) KETOROLAC (Verified Allergy, Unknown, 07/14/18) PENICILLINS (Verified Allergy, Unknown, 07/14/18) Uncoded Allergies: PENICILIN (Allergy, Unknown, 12/14/18) All Systems: reviewed and negative except above Subjective patient unable to fit on CT scan due to weight afebrile no leukocytosis Objective Vital Signs Last 24 Hour Vital Signs Date Time Temp Pulse Resp B/P (MAP) Pulse Ox O2 Delivery O2 Flow Rate FiO2 12/18/18 12:00 97.4 76 20 120/85 (97) 95 12/18/18 07:58 77 20 94 Room Air 21 12/18/18 05:57 97.6 12/18/18 00:00 97.6 72 18 146/71 (96) 94 12/17/18 20:06 72 18 95 Room Air 21 12/17/18 20:00 98.0 83 18 118/80 (93) 92 12/17/18 16:00 99.3 68 20 114/78 (90) 95 Height (Feet): 5 Height (Inches): 10.00 Weight (Pounds): 409 Objective GENERAL: Calm in bed, oriented x3, in slight distress, secondary to weakness. CARDIOVASCULAR: No murmurs. LUNGS: Poor air exchange. ABDOMEN: Bowel sounds distant. EXTREMITIES: Show no cyanosis or clubbing. A 1+ edema in bilateral lower extremity. Large pannus noted in the abdomen area. NEUROLOGIC: The patient moves all extremities, slightly weak. Microbiology Date/Time Source Procedure Growth Status 12/15/18 21:33 Rectum - Final NO CARBAPENEM-RESISTANT ENTEROBACTERI... Complete Current Medications Medications (Trade) Dose Ordered Sig/Luis Route PRN Reason Start Time Stop Time Status Last Admin Dose Admin Acetaminophen (Tylenol) 650 mg Q4H PRN ORAL fever 12/15/18 14:54 01/14/19 14:53 Albuterol/ Ipratropium (Albuterol/ Ipratropium) 3 ml Q4H PRN HHN Shortness of Breath 12/15/18 14:54 12/20/18 14:53 Atorvastatin Calcium (Lipitor) 80 mg BEDTIME ORAL 12/15/18 21:00 01/14/19 20:59 12/17/18 21:33 Clonidine HCl (Catapres Tab) 0.1 mg Q4H PRN ORAL For High Blood Pressure 12/15/18 14:56 01/14/19 14:55 Clopidogrel Bisulfate (Plavix) 75 mg DAILY ORAL 12/16/18 09:00 01/14/19 08:59 12/18/18 08:03 Dextrose (Dextrose 50%) 25 ml Q30M PRN IV Hypoglycemia 12/15/18 15:15 01/13/19 23:44 Dextrose (Dextrose 50%) 50 ml Q30M PRN IV Hypoglycemia 12/15/18 15:15 01/13/19 23:44 Duloxetine HCl (Cymbalta) 30 mg DAILY ORAL 12/16/18 09:00 01/14/19 08:59 12/18/18 08:03 Gabapentin (Neurontin) 600 mg THREE TIMES A DAY ORAL 12/15/18 18:00 01/14/19 08:59 12/18/18 08:03 Heparin Sodium (Porcine) (Heparin 5000 units/ml) 5,000 units EVERY 12 HOURS SUBQ 12/15/18 21:00 01/14/19 08:59 12/18/18 08:12 Hydromorphone HCl (Dilaudid) 2 mg Q4H PRN IV pain 7-10 12/15/18 14:55 12/22/18 14:54 12/18/18 09:27 Levetiracetam 100 ml @ 400 mls/hr Q12HR IVPB 12/15/18 18:30 01/14/19 18:29 12/18/18 08:03 Lorazepam (Ativan 2mg/ml 1ml) 0.5 mg Q4H PRN IV For Anxiety 12/15/18 14:55 12/22/18 14:54 Lorazepam (Ativan 2mg/ml 1ml) 1 mg Q4H PRN IVP For Seizures 12/15/18 18:30 12/22/18 18:29 12/15/18 18:32 Nitroglycerin (Ntg) 0.4 mg Q5M X 3 DOSES PRN SL Prn Chest Pain 12/15/18 14:45 01/13/19 23:44 Ondansetron HCl (Zofran) 4 mg Q6H PRN IVP Nausea & Vomiting 12/15/18 14:55 01/14/19 14:54 12/17/18 10:19 Polyethylene Glycol (Miralax) 17 gm HSPRN PRN ORAL Constipation 12/15/18 14:55 01/14/19 14:54 Promethazine HCl/ Codeine (Phenergan with Codeine) 5 ml Q4H PRN ORAL For Cough 12/15/18 14:55 01/14/19 14:54 Temazepam (Restoril) 15 mg HSPRN PRN ORAL Insomnia 12/15/18 14:55 12/22/18 14:54 Trazodone HCl (Desyrel) 100 mg BEDTIME ORAL 12/15/18 21:00 01/14/19 20:59 12/17/18 21:33 Alexa Patterson M.D. December 18, 2018 13:21
--- NOTE | 2018-12-18 13:42 | NUR ---
SWALLOW STATUS: PATIENT ALERT AND STATING HE NEEDS MORE TIME TO CHEW MASTICATED SOLIDS BUT HE HAS NO PROBLEMS SWALLOWING THEM. GOALS MET FOR INTAKE AND STAFF AND PATIENT AWARE OF GENERAL ASPIRATION PRECAUTIONS. PATIENT DOES NOT WANT ANY DIET DOWNGRADES. HE ADMITS THAT SOMETIMES WHEN HE DRINKS LIQUIDS SEQUENTIALLY OR TAKE A LARGE SIP VIA CUP HE WILL COUGH. PATIENT TRAINED IN KEEPING HEAD NEUTRAL OR SLIGHTLY TUCKED AND TAKING ONE SMALL SIP AT A TIME VIA CUP. PATIENT NOT RECEPTIVE TO DOWNGRADE TO NECTAR THICK LIQUIDS. TONGUE DEVIATES ALMOST COMPLETELY TO THE RIGHT BUT SLOWLY ABLE TO MOVE TO THE LEFT BUT NOT MAINTAIN IT THERE NOR PUSH INTO LEFT CHEEK FOR RESISTANCE. FAIR TONGUE RESISTANCE TO THE RIGHT. ON THE SCHEDULE FOR A MOD BARIUM SWALLOW STUDY, NOT COMPLETED DUE TO SCHEDULE CONFLICTS. 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 PER PATIENT, HE IS AWAITING AN MRI OF THE BRAIN TO R/O STROKE. NO TIME FOR FORMAL EVAL. PATIENT ABLE TO EXPRESS HIS BASIC NEEDS. HAS A MILD DYSARTHRIA APPEARS RELATED TO TONGUE CREATING ARTICULATORY IMPRECISION PARTICULARLY FOR TONGUE TIP SOUNDS LIKE /S/. SPEECH IS 100% INTELLIGIBLE BUT DOES NEED TO PAUSE FOR WORD FINDING AT TIMES. DID OMIT SOME SMALL, LESS IMPORTANT WORDS IN ONE SENTENCE. DYSFLUENCY WITH PROLONGATIONS ON INITIAL SOUND AND POSSIBLE BLOCKING NOTED, WILL INVESTIGATE FURTHER (?PREMORBID STATUS). ABLE TO EXPRESS BASIC NEEDS AND CONVERSE FOR SIMPLE INFORMATION. RECOMMENDATIONS: CONTINUE WITH PLAN OF CARE IN SWALLOW EVAL REPORT AND COMPLETE MOD BARIUM SWALLOW STUDY NEXT WEEK (FRIDAY A HOL SO LIKELY FRIDAY). COMPLETE FORMAL SPEECH, LANGUAGE, AND COGNITIVE EVALUATION. D/W PATIENT AND STAFF. Addendum: 12/18/18 at 1346 by RONNELL PADGETT OR ASSISTANT UPDATED NOTE: SWALLOW STATUS: PATIENT ALERT AND STATING HE NEEDS MORE TIME TO CHEW MASTICATED SOLIDS BUT HE HAS NO PROBLEMS SWALLOWING THEM. GOALS MET FOR INTAKE AND STAFF AND PATIENT AWARE OF GENERAL ASPIRATION PRECAUTIONS. PATIENT DOES NOT WANT ANY DIET DOWNGRADES. HE ADMITS THAT SOMETIMES WHEN HE DRINKS LIQUIDS SEQUENTIALLY OR TAKE A LARGE SIP VIA CUP HE WILL COUGH. PATIENT TRAINED IN KEEPING HEAD NEUTRAL OR SLIGHTLY TUCKED AND TAKING ONE SMALL SIP AT A TIME VIA CUP. PATIENT NOT RECEPTIVE TO DOWNGRADE TO NECTAR THICK LIQUIDS. TONGUE DEVIATES ALMOST COMPLETELY TO THE RIGHT BUT SLOWLY ABLE TO MOVE TO THE LEFT BUT NOT MAINTAIN IT THERE NOR PUSH INTO LEFT CHEEK FOR RESISTANCE. FAIR TONGUE RESISTANCE TO THE RIGHT. ON THE SCHEDULE FOR A MOD BARIUM SWALLOW STUDY, NOT COMPLETED DUE TO SCHEDULE CONFLICTS. SPEECH STATUS: PER NEURO FIRE MANAGEMENT OFFICER Nena QUIGLEY, PATIENT HAS SOME DYSARTHRIA AND APHASIA. 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 PER PATIENT, HE IS AWAITING AN MRI OF THE BRAIN TO R/O STROKE. NO TIME FOR FORMAL EVAL. PATIENT ABLE TO EXPRESS HIS BASIC NEEDS. HAS A MILD DYSARTHRIA APPEARS RELATED TO TONGUE CREATING ARTICULATORY IMPRECISION PARTICULARLY FOR TONGUE TIP SOUNDS LIKE /S/. SPEEECH IS 100% INTELLIGIBLE. DYSFLUENCY WITH PROLONGATIONS ON INITIAL SOUND AND POSSIBLE BLOCKING NOTED, WILL INVESTIGATE FURTHER (?PREMORBID STATUS). MILD EXPRESSIVE APHASIA HE NEEDS TO PAUSE FOR WORD FINDING AT TIMES. ABLE TO EXPRESS BASIC NEEDS AND CONVERSE FOR SIMPLE INFORMATION. GROSSLY FUNCTIONAL RECEPTIVE LANGUAGE SKILLS FOR COMPLEX SENTENCES DURING CONVERSATION. RECOMMENDATIONS: CONTINUE WITH PLAN OF CARE IN SWALLOW EVAL REPORT AND COMPLETE MOD BARIUM SWALLOW STUDY NEXT WEEK (FRIDAY A HOLIDAY SO LIKELY FRIDAY). COMPLETE FORMAL SPEECH, LANGUAGE, AND COGNITIVE EVALUATION. D/W PATIENT AND STAFF.
--- NOTE | 2018-12-18 14:32 | General Progress Note ---
Assessment/Plan Problem List: (1) Abdominal pannus ICD Codes: E65 - Localized adiposity SNOMED: 5219527313933 (2) Peripheral edema ICD Codes: R60.9 - Edema, unspecified SNOMED: 665746048 (3) Abdominal wall cellulitis ICD Codes: L03.311 - Cellulitis of abdominal wall SNOMED: 73781497 (4) Leg pain ICD Codes: M79.606 - Pain in leg, unspecified SNOMED: 02145617 (5) COPD (chronic obstructive pulmonary disease) ICD Codes: J44.9 - Chronic obstructive pulmonary disease, unspecified SNOMED: 44667768 (6) Seizures ICD Codes: R56.9 - Unspecified convulsions SNOMED: 29234067 (7) Morbid obesity ICD Codes: E66.01 - Morbid (severe) obesity due to excess calories SNOMED: 990202365 (8) Cerebrovascular accident ICD Codes: I63.9 - Cerebral infarction, unspecified SNOMED: 433898468 (9) Left-sided weakness ICD Codes: R53.1 - Weakness SNOMED: 990829895 Status: stable, progressing Assessment/Plan: pt diet neuro f/u wound care abx pain control cbc bmp am Subjective Constitutional: Reports: weakness Allergies: Coded Allergies: ASPIRIN (Verified Allergy, Unknown, 07/14/18) KETOROLAC (Verified Allergy, Unknown, 07/14/18) PENICILLINS (Verified Allergy, Unknown, 07/14/18) Uncoded Allergies: PENICILIN (Allergy, Unknown, 12/14/18) All Systems: reviewed and negative except above Subjective sleepy calm in bed Objective Last 24 Hour Vital Signs Date Time Temp Pulse Resp B/P (MAP) Pulse Ox O2 Delivery O2 Flow Rate FiO2 12/18/18 12:00 97.4 76 20 120/85 (97) 95 12/18/18 07:58 77 20 94 Room Air 21 12/18/18 05:57 97.6 12/18/18 00:00 97.6 72 18 146/71 (96) 94 12/17/18 20:06 72 18 95 Room Air 21 12/17/18 20:00 98.0 83 18 118/80 (93) 92 12/17/18 16:00 99.3 68 20 114/78 (90) 95 Intake and Output 12/17/18 12/18/18 19:00 07:00 Intake Total 900 ml 100 ml Balance 900 ml 100 ml Intake Oral 800 ml IV Total 100 ml 100 ml # Voids 3 3 # Bowel Movements 1 Height (Feet): 5 Height (Inches): 10.00 Weight (Pounds): 409 General Appearance: lethargic EENT: normal ENT inspection Neck: normal alignment Cardiovascular: normal peripheral pulses, normal rate, regular rhythm Respiratory/Chest: chest wall non-tender, decreased breath sounds Abdomen: hypoactive bowel sounds, distended Extremities: swelling Edema: 1+ Arm (L), 1+ Arm (R), 1+ Leg (L), 1+ Leg (R), 1+ Pedal (L), 1+ Pedal ( R), 1+ Generalized Neurologic: responsive, motor weakness Skin: normal pigmentation, warm/dry Ernesto Nicole DO December 18, 2018 14:32
[2018-12-18 16:00] VITALS: BP 132/85
--- NOTE | 2018-12-18 16:00 | Progress Note ---
DATE: 12/18/2018 PSYCHIATRIC PROGRESS NOTE: SUBJECTIVE: This is a 53-year-old male patient who came to the hospital. He is confused and disorganized. He has got no logical plan for his own self-care. Apparently, this patient is admitted to the hospital secondary to rule out CVA, but he is still very irritable on interview. Every time I walk into his room like this morning when I walked to his room, he says "what do you want, who are you" even though I have told him for the last 3 to 4 days who I am and why I am here. He seemed to be equally agitated every day even though he knows I am here to help him with anxiety and depression. He is very guarded. Mood labile. Seemed to be uncomfortable. Talked to him about his psychiatric condition or his mood disorder, although he does admit to other people that he has anxiety and depression, when I ask him about this, he is very vague about it. I treated him multiple times before pretty consistent with his behavior. MENTAL STATUS EXAMINATION: This is a 53-year-old male. His appearance is disheveled. Attitude, irritable and agitated. Affect, guarded and restricted. Intellect poor. Mood depressed and anxious. Motor activity, psychomotor agitation. Attention span is poor. Orientation x2. Speech is low volume, slurred. Thought process, disorganized, illogical. Insight and judgment is poor. DIAGNOSIS: Major depressive disorder, mild, recurrent, without psychotic features, rule out generalized anxiety disorder. PLAN: Treat him with Cymbalta 30 mg daily, Neurontin 600 three times a day, Ativan 1 mg IV every 6 hours p.r.n., trazodone 100 at bedtime. Provide him with 20 minutes of cognitive behavioral therapy to help him identify his automatic negative thoughts help him convert his negative thoughts to more positive thoughts to reduce depression, anxiety, mood lability, and help him have more adaptive behavioral pattern. Laney Mcghee M.D. DR: GEENA JOB#: [id number] CC:
--- NOTE | 2018-12-18 17:27 | NUR ---
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 ABDOMINAL WALL CELLULITIS . PERIPHERAL EDEMA VS: BP 120/85, P 73, T 97.4, RR 20, SpO2 94 NO LABS TODAY IS: HEPARIN SUBQ PLAVIX 75mG DILAUDID 2mg GABAPENTIN 600mg CYMBALTA 30mg LEVETIRACETAM 100ml IVPB MED/SURG STATUS
--- NOTE | 2018-12-18 19:32 | NUR ---
HAND-OFF: Report given to Beatrice HINOJOSA.
--- NOTE | 2018-12-18 19:39 | NUR ---
NURSE NOTES: PATIENT IN BED, AWAKE, ALERT, MAKES NEEDS KNOWN. IV IN PLACE. NO S/S DISTRESS OR PAIN NOTED. BED IN LOWEST POSITION, CALL LIGHT WITHIN REACH. WILL CONTINUE TO MONITOR.
--- NOTE | 2018-12-18 20:33 | NUR ---
NURSE NOTES: PER POLICE CHIEF DEPUTY, PATIENT ALMOST HIT HER AND REFUSED V/S AND PATIENT STATED THAT HE DOES NOT WANT TO BE DISTURBED AND HE WILL CALL FOR ASSISTANCE. WILL CONTINUE TO MONITOR.
[2018-12-18] MEDS: Atorvastatin 80mg tab ORAL SCH (21:54)
[2018-12-18] MEDS: TraZODone 100mg tab ORAL SCH (21:54)
[2018-12-18 22:13] VITALS: BP 126/80
--- NOTE | 2018-12-18 22:13 | NUR ---
NURSE NOTES: PATIENT REFUSED TO HAVE BED ALARM TURNED ON, NURSE EXPLAINED BENEFITS AND RISKS, PATIENT STILL REFUSED.
--- NOTE | 2018-12-18 23:01 | Cardiology Progress Note ---
Assessment/Plan Assessment/Plan 1. Morbid obesity with pannus formation, 2D echo from Jun 2018 has revealed normal LV systolic and diastolic function. He is clear for intermediate risk "removal of pannus", with the risk of coronary artery events perioperatively estimated to be less than 1%. 2. Chronic obstructive pulmonary disease. 3. Chronic venous insufficiency. 4. HTN Subjective Subjective No cardiac events noted. Denies chest pain or SOB. Objective Last 24 Hour Vital Signs Date Time Temp Pulse Resp B/P (MAP) Pulse Ox O2 Delivery O2 Flow Rate FiO2 12/18/18 22:18 98.5 12/18/18 22:13 98.5 79 20 126/80 (95) 94 12/18/18 21:08 75 20 93 Room Air 21 12/18/18 16:00 97.9 73 20 132/85 (101) 96 12/18/18 12:00 97.4 76 20 120/85 (97) 95 12/18/18 07:58 77 20 94 Room Air 21 12/18/18 00:00 97.6 72 18 146/71 (96) 94 Intake and Output 12/17/18 12/18/18 19:00 07:00 Intake Total 900 ml 100 ml Balance 900 ml 100 ml Intake Oral 800 ml IV Total 100 ml 100 ml # Voids 3 3 # Bowel Movements 1 2D Echo: Normal LV systolic function, RVSP 34 mmHg, RAP elevated at 15 mmHg Objective HEENT: Atraumatic and normocephalic. Anicteric. Pupils are equal, round, and reactive to light and accommodation. NECK: JVP cannot be assessed due to obesity. No carotid bruit. CARDIOVASCULAR: Normal S1, S2. Regular rate and rhythm. No murmurs, gallops, or rubs. PMI is at fourth intercostal space at the midclavicular line. LUNGS: Clear to auscultation bilaterally. ABDOMEN: Distended due to pannus formation, cannot palpate hepatosplenomegaly. Positive bowel sounds. EXTREMITIES: No lower extremity edema, clubbing or cyanosis. Carlos Martins MD December 18, 2018 23:01
--- NOTE | 2018-12-18 23:37 | Neurology Progress Note ---
Interim History Interim History ROS Limited/Unobtainable: No Complaints: Left sided weakness/ spasticity Events: ARM WEAKNESS RESOLVED, HAND Weakness persisting Interim History This visit was performed on 12/18/[address] Amador Brewster MD Review of Systems All Systems: reviewed and negative except above Objective Physical Exam Last Vital Signs Date Time Temp Pulse Resp B/P (MAP) Pulse Ox O2 Delivery O2 Flow Rate FiO2 12/18/18 22:18 98.5 12/18/18 22:13 79 20 126/80 (95) 94 12/18/18 21:08 Room Air 21 General: well developed, well nourished, other - Morbidly obese Head: normocophalic Neck: no rigidity EENT: benign Neurologic Exam Mental Status: awake, alert, oriented x4, normal cognition, good mathematical skills, normal recent memory, normal remote memory, preserved visuospatial function Speech: normal speech, no dysarthia Language: normal language, no aphasia Cranial Nerve II: fundus normal, visual bonilla, no papilledema Cranial Nerves III, IV, : PERRLA, EOMI, pupils Cranial Nerve V: normal facial sensations, temporales function normal, masseters function normal, pterygoids function normal Cranial Nerve VII: no facial asymmetry, normal facial expressions Cranial Nerve VIII: normal hearing, no nystagmus Cranial Nerve IX: normal palate elevation, gag response Cranial Nerve X: no voice hoarseness Cranial Nerve XI: SCM symmetric, trapezii function normal Cranial Nerve XII: tongue midline, no tongue atrophy/fasciculations Motor System: normal muscle tone, no involuntary movement, no muscle wasting Sensory: normal pinprick, normal light touch, normal position sense, normal graphesthesia Coordination: negative Romberg test Deep Tendon Reflexes: 1+ bicep (L), 1+ bicep (R), 1+ tricep (L), 1+ tricep (R) , 1+ brachioradialis (L), 1+ brachioradialis (R), 1+ knee (L), 1+ knee (R), 1+ ankle (L), 1+ ankle (R) Reflexes: flexor plantar (L), flexor plantar (R); extensor plantar (L), extensor plantar (R) Stance: other - Broad based Objective Left arm, predominantly hand weakness and spasm at this time. Alert and oriented, intermittently agitated / irritable Ambulatory with cellulitis persisting on RLE He does not have proximal left arm weakness at this time or facial weakness. Impression/Recommendations Problems: (1) Seizures Assessment & Plan: Was previously on 500mg BID Keppra - cannot describe what his seizures are like and denies any preceeding symptoms. Will commence IV Keppra 1000mg BID, Ativan 2mg STAT for appearance of simple partial seizure activity Keppra level will take too long to check to be clinically relevant Maintain SBP<140 Q4 Hour Neuro Checks Ativan 2mg PRN for seizure activity CT Head w/o contrast when able to rule out CVA - also for consideration of MRI if CT negative. - low suspicion of CVA due to normotensive status without risk factors of elevated BP/ HgBA1c or thyroid dysfunction. Na 135-145 Continue pain management Gabapenin 600mg BID to TID (2) Morbid obesity (3) COPD (chronic obstructive pulmonary disease) (4) Uncontrolled seizures (5) Left-sided weakness (6) Knee osteomyelits, right (7) Neuropathy Status: stable, progressing Recommendations Continue neuroleptic meds as per psychiatry Some increased agitation - consider additiona 25mg Seroquel PRN for agitation Maintain SBP<140 PT/OT evals CT/ MRI follow up to rule out stroke - wait list for transfer and open MRI scanner EEG as outpatient Vicky Taylor N.P. December 18, 2018 23:37
[2018-12-19 01:53] VITALS: BP 127/71
--- NOTE | 2018-12-19 05:30 | Consultation ---
DATE OF CONSULTATION: 12/18/2018 CONSULTING PHYSICIAN: REASON FOR CONSULTATION: Venous stasis ulceration to the left foot. HISTORY OF PRESENT ILLNESS: This is a 53-year-old, morbidly obese patient who was admitted to [facility] for evaluation and treatment. Consultation was initiated for ulceration to the left leg. This patient states this is a chronic issue that he deals with his legs due to his swollen large legs. He gets cellulitis frequently. The patient is currently on IV antibiotics. PAST MEDICAL HISTORY: CVA, morbidly obese, peripheral vascular disease, venous stasis, cellulitis, venous stasis ulceration, edema, chronic pitting edema, congestive heart failure, chronic obstructive pulmonary disease. PODIATRY EXAMINATION: VASCULAR: Dorsalis pedis and posterior tibial artery are palpable 1/4 with capillary filling time of 3 seconds. Large edematous legs, ankles, feet are noted to bilateral legs, pitting nature. NEUROLOGICAL: Sharp and dull proprioception, protected threshold noted to be intact. MUSCULOSKELETAL: The patient is mobile. Muscle strength is noted to be 5/5 in all 4 quadrants. Range of motion is noted to be within normal limits. DERMATOLOGICAL: The patient with bilateral legs where cellulitis was noted distal to the knee just proximal to the ankle bilaterally, left greater than right. No open lesions noted on the right side. There is anterior villarreal open lesion down to the dermal layer, status post skin care consistent with patient's history of chronic superficial ulceration. There is slight drainage. There is periwound erythema. No purulent matter noted. No odor noted. There is hyperpigmentation. There is no probing undermining that can be appreciated. ASSESSMENT AND PLAN: Peripheral vascular disease with venous stasis ulceration and venous stasis cellulitis. Order was given to apply Xeroform to the villarreal with light dressing. Order was written for vascular studies to rule out DVT. The patient will be followed. Elliot Siegel D.P.M DR: Deja JOB#: [id number] CC: EVONNE
--- NOTE | 2018-12-19 05:45 | Progress Note ---
DATE: 12/19/2018 SUBJECTIVE: This is a 53-year-old male patient, rule out CVA. The patient continues to have some anxiety, mood lability, worsened by stress of his medical illness that is why his attending physician has requested daily psychiatric consultation. MENTAL STATUS EXAMINATION: This is a 53-year-old male. Appearance is disheveled. Attitude, irritable and agitated. Affect, guarded and restricted. Intellect poor. Mood, depressed and anxious. Motor activity, psychomotor agitation. Attention span is poor. Orientation x2. Speech is low volume. Thought process, disorganized and illogical. Insight and judgment is poor. DIAGNOSIS: Major depressive disorder, mild, recurrent, without psychotic features, rule out generalized anxiety disorder. PLAN: Plan is to treat the patient with medication regimen of Cymbalta 30 mg daily, trazodone 100 mg at bedtime, Neurontin 600 mg three times a day, Ativan 1 mg IV q. 4 h to help stabilize his mood and reduce agitation. A 20 minutes of reality-based supportive psychotherapy. Chart reviewed. Discussed with staff. Seen and assessed in his room. A 20 minutes of cognitive behavioral therapy to help this patient identify his automatic negative thoughts and help him convert those negative thoughts to more positive thoughts to reduce depression, anxiety, and suicidality. Chart reviewed. Discussed with staff. Seen and assessed in his room. Laney Mcghee M.D. DR: Doretha JOB#: [id number] CC:
[2018-12-19 05:59] VITALS: BP 130/80
--- NOTE | 2018-12-19 07:30 | NUR ---
NURSE NOTES: received patient resting in bed. Alert and oriented, no sign of distress, denies pain at this time, ambulatory with steady gait. Seizure precautions maintained with padded side rails.HL left arm patent and intact. Bed locked in lowest position, call light placed within reach. Will continue to monitor. MICAELA ADAMES
--- NOTE | 2018-12-19 07:30 | NUR ---
HAND-OFF: Report given to SHIRA HUTTON RN.
[2018-12-19 08:00] VITALS: BP 104/61
--- NOTE | 2018-12-19 08:21 | General Progress Note ---
Assessment/Plan Problem List: (1) Abdominal pannus ICD Codes: E65 - Localized adiposity SNOMED: 6857714606537 (2) Peripheral edema ICD Codes: R60.9 - Edema, unspecified SNOMED: 492493668 (3) Abdominal wall cellulitis ICD Codes: L03.311 - Cellulitis of abdominal wall SNOMED: 76223915 (4) Leg pain ICD Codes: M79.606 - Pain in leg, unspecified SNOMED: 14120535 (5) COPD (chronic obstructive pulmonary disease) ICD Codes: J44.9 - Chronic obstructive pulmonary disease, unspecified SNOMED: 77546655 (6) Seizures ICD Codes: R56.9 - Unspecified convulsions SNOMED: 87268094 (7) Morbid obesity ICD Codes: E66.01 - Morbid (severe) obesity due to excess calories SNOMED: 621746024 (8) Cerebrovascular accident ICD Codes: I63.9 - Cerebral infarction, unspecified SNOMED: 646694953 (9) Left-sided weakness ICD Codes: R53.1 - Weakness SNOMED: 889114703 Status: stable, progressing Assessment/Plan: pt diet neuro f/u wound care abx pain control cbc bmp am brotman aru eval Subjective Constitutional: Reports: weakness Allergies: Coded Allergies: ASPIRIN (Verified Allergy, Unknown, 07/14/18) KETOROLAC (Verified Allergy, Unknown, 07/14/18) PENICILLINS (Verified Allergy, Unknown, 07/14/18) Uncoded Allergies: PENICILIN (Allergy, Unknown, 12/14/18) All Systems: reviewed and negative except above Subjective sleepy calm in bed Objective Last 24 Hour Vital Signs Date Time Temp Pulse Resp B/P (MAP) Pulse Ox O2 Delivery O2 Flow Rate FiO2 12/19/18 08:00 98.2 83 20 104/61 (75) 97 12/19/18 06:22 98.3 12/19/18 05:59 98.3 80 20 130/80 (97) 94 12/19/18 01:53 78 20 127/71 (89) 95 12/18/18 22:13 98.5 79 20 126/80 (95) 94 12/18/18 21:08 75 20 93 Room Air 21 12/18/18 16:00 97.9 73 20 132/85 (101) 96 12/18/18 12:00 97.4 76 20 120/85 (97) 95 Intake and Output 12/18/18 12/19/18 18:59 06:59 Intake Total 1240 ml 100 ml Balance 1240 ml 100 ml Intake Oral 1240 ml IV Total 100 ml # Voids 10 2 Height (Feet): 5 Height (Inches): 10.00 Weight (Pounds): 409 General Appearance: lethargic EENT: normal ENT inspection Neck: normal alignment Cardiovascular: normal peripheral pulses, normal rate, regular rhythm Respiratory/Chest: chest wall non-tender, lungs clear, normal breath sounds Abdomen: normal bowel sounds, non tender, soft Extremities: normal inspection Edema: no edema noted Arm (L), no edema noted Arm (R), no edema noted Leg (L), no edema noted Leg (R), no edema noted Pedal (L), no edema noted Pedal (R), no edema noted Generalized Neurologic: motor weakness Skin: normal pigmentation, warm/dry Ernesto Nicole DO December 19, 2018 08:21
[2018-12-19] MEDS: Heparin 5000 units/ml inj SUBQ SCH ×2 (08:28→21:49)
[2018-12-19] MEDS: DULoxetine 30mg cap ORAL SCH (08:29)
[2018-12-19 12:00] VITALS: BP 110/68
--- NOTE | 2018-12-19 13:40 | NUR ---
CASE MANAGEMENT: REVIEW SI: CVA . LEFT-SIDED WEAKNESS . ABDOMINAL WALL CELLULITIS . COPD T 98.2 HR 93 RR 20 BP 104/61 SAT 97% ROOM AIR IS: NEURONTIN PO QID HEPARIN SQ Q12HR MED/SURG STATUS DCP: PATIENT IS FROM [facility]
--- NOTE | 2018-12-19 14:00 | NUR ---
CASE MANAGEMENT: DCPNOTE PER ORDER PATIENT REFERRED TO MEDINA DARLING [phone] PH / [phone] FAX CM WILL F/U
[2018-12-19 16:14] VITALS: BP 130/76
[2018-12-19 16:52] LABS: BASOPHILS % (AUTO) 1.1 % (0.0-2.0); EOSINOPHILS % (AUTO) 1.7 % (0.0-3.0); HEMATOCRIT 38.2 % (42.0-52.0); HEMOGLOBIN 13.1 G/DL (14.2-18.0); LYMPHOCYTES % (AUTO) 37.5 % (20.0-45.0); MEAN CORPUSCULAR VOLUME 88 FL (80-99); MONOCYTES % (AUTO) 9.7 % (1.0-10.0); NEUTROPHILS % (AUTO) 50.1 % (45.0-75.0); PLATELET COUNT 163 K/UL (150-450); RED BLOOD COUNT 4.33 M/UL (4.70-6.10); RED CELL DISTRIBUTION WIDTH 12.9 % (11.6-14.8); WHITE BLOOD COUNT 4.9 K/UL (4.8-10.8)
[2018-12-19 17:05] LABS: ANION GAP 4 mmol/L (5-15); BLOOD UREA NITROGEN 17 mg/dL (7-18); CALCIUM 8.4 MG/DL (8.5-10.1); CARBON DIOXIDE 30 MMOL/L (21-32); CHLORIDE 106 MMOL/L (98-107); CREATININE 0.8 MG/DL (0.55-1.30); POTASSIUM 5.1 MMOL/L (3.5-5.1); SODIUM 140 MMOL/L (136-145)
--- NOTE | 2018-12-19 19:19 | Cardiology Progress Note ---
Assessment/Plan Assessment/Plan 1. Morbid obesity with pannus formation, 2D echo from Jun 2018 has revealed normal LV systolic and diastolic function. He is clear for intermediate risk "removal of pannus", with the risk of coronary artery events perioperatively estimated to be less than 1%. 2. Chronic obstructive pulmonary disease. 3. Chronic venous insufficiency. 4. Hx of HTN, diet controlled. Subjective Subjective No cardiac events noted. Objective Last 24 Hour Vital Signs Date Time Temp Pulse Resp B/P (MAP) Pulse Ox O2 Delivery O2 Flow Rate FiO2 12/19/18 16:14 97.1 82 20 130/76 (94) 100 12/19/18 12:00 98.3 72 20 110/68 (82) 97 12/19/18 08:00 98.2 83 20 104/61 (75) 97 12/19/18 07:49 79 20 95 Room Air 21 12/19/18 06:22 98.3 12/19/18 05:59 98.3 80 20 130/80 (97) 94 12/19/18 01:53 78 20 127/71 (89) 95 12/18/18 22:13 98.5 79 20 126/80 (95) 94 12/18/18 21:08 75 20 93 Room Air 21 Intake and Output 12/18/18 12/19/18 19:00 07:00 Intake Total 1240 ml 100 ml Balance 1240 ml 100 ml Intake Oral 1240 ml IV Total 100 ml # Voids 10 2 2D Echo: Normal LV systolic function, RVSP 34 mmHg, RAP elevated at 15 mmHg Laboratory Tests Test 12/19/18 16:25 White Blood Count 4.9 K/UL (4.8-10.8) Red Blood Count 4.33 M/UL (4.70-6.10) L Hemoglobin 13.1 G/DL (14.2-18.0) L Hematocrit 38.2 % (42.0-52.0) L Mean Corpuscular Volume 88 FL (80-99) Mean Corpuscular Hemoglobin 30.3 PG (27.0-31.0) Mean Corpuscular Hemoglobin Concent 34.3 G/DL (32.0-36.0) Red Cell Distribution Width 12.9 % (11.6-14.8) Platelet Count 163 K/UL (150-450) Mean Platelet Volume 5.6 FL (6.5-10.1) L Neutrophils (%) (Auto) 50.1 % (45.0-75.0) Lymphocytes (%) (Auto) 37.5 % (20.0-45.0) Monocytes (%) (Auto) 9.7 % (1.0-10.0) Eosinophils (%) (Auto) 1.7 % (0.0-3.0) Basophils (%) (Auto) 1.1 % (0.0-2.0) Sodium Level 140 MMOL/L (136-145) Potassium Level 5.1 MMOL/L (3.5-5.1) Chloride Level 106 MMOL/L (98-107) Carbon Dioxide Level 30 MMOL/L (21-32) Anion Gap 4 mmol/L (5-15) L Blood Urea Nitrogen 17 mg/dL (7-18) Creatinine 0.8 MG/DL (0.55-1.30) Estimat Glomerular Filtration Rate > 60 mL/min (>60) Glucose Level 94 MG/DL (74-106) Calcium Level 8.4 MG/DL (8.5-10.1) L Objective HEENT: Atraumatic and normocephalic. Anicteric. Pupils are equal, round, and reactive to light and accommodation. NECK: JVP cannot be assessed due to obesity. No carotid bruit. CARDIOVASCULAR: Normal S1, S2. Regular rate and rhythm. No murmurs, gallops, or rubs. PMI is at fourth intercostal space at the midclavicular line. LUNGS: Clear to auscultation bilaterally. ABDOMEN: Distended due to pannus formation, cannot palpate hepatosplenomegaly. Positive bowel sounds. EXTREMITIES: No lower extremity edema, clubbing or cyanosis. Carlos Martins MD December 19, 2018 19:19
--- NOTE | 2018-12-19 19:26 | Pulmonology Progress Note ---
Assessment/Plan Problems: (1) Seizures (2) Cerebrovascular accident (3) Left-sided weakness (4) COPD (chronic obstructive pulmonary disease) (5) Right heart failure (6) Lumbar spondylosis (7) ADALBERTO (obstructive sleep apnea) (8) Morbid obesity Assessment/Plan all meds /notes reviewed plastic surgery contacted, will do the procedure after clearance by cardio. I cleared him as pulmonary. pt/ot respiratory treatment titrate fio2 to sat of 92% dvt prophylaxis Subjective ROS Limited/Unobtainable: No Constitutional: Reports: no symptoms HEENT: Repors: no symptoms Respiratory: Reports: no symptoms Allergies: Coded Allergies: ASPIRIN (Verified Allergy, Unknown, 07/14/18) KETOROLAC (Verified Allergy, Unknown, 07/14/18) PENICILLINS (Verified Allergy, Unknown, 07/14/18) Uncoded Allergies: PENICILIN (Allergy, Unknown, 12/14/18) Objective Last 24 Hour Vital Signs Date Time Temp Pulse Resp B/P (MAP) Pulse Ox O2 Delivery O2 Flow Rate FiO2 12/19/18 16:14 97.1 82 20 130/76 (94) 100 12/19/18 12:00 98.3 72 20 110/68 (82) 97 12/19/18 08:00 98.2 83 20 104/61 (75) 97 12/19/18 07:49 79 20 95 Room Air 21 12/19/18 06:22 98.3 12/19/18 05:59 98.3 80 20 130/80 (97) 94 12/19/18 01:53 78 20 127/71 (89) 95 12/18/18 22:13 98.5 79 20 126/80 (95) 94 12/18/18 21:08 75 20 93 Room Air 21 Intake and Output 12/18/18 12/19/18 19:00 07:00 Intake Total 1240 ml 100 ml Balance 1240 ml 100 ml Intake Oral 1240 ml IV Total 100 ml # Voids 10 2 Objective HEENT: normocephalic, atraumatic Respiratory/Chest: chest wall non-tender, lungs clear Cardiovascular: normal peripheral pulses, normal rate Abdomen: normal bowel sounds, no organomegaly, massive fat on abdomen Extremities: no cyanosis Skin: no lesions Laboratory Tests 12/19/18 16:25: White Blood Count 4.9, Red Blood Count 4.33L, Hemoglobin 13.1L, Hematocrit 38.2L , Mean Corpuscular Volume 88, Mean Corpuscular Hemoglobin 30.3, Mean Corpuscular Hemoglobin Concent 34.3, Red Cell Distribution Width 12.9, Platelet Count 163, Mean Platelet Volume 5.6L, Neutrophils (%) (Auto) 50.1, Lymphocytes ( %) (Auto) 37.5, Monocytes (%) (Auto) 9.7, Eosinophils (%) (Auto) 1.7, Basophils (%) (Auto) 1.1, Sodium Level 140, Potassium Level 5.1, Chloride Level 106, Carbon Dioxide Level 30, Anion Gap 4L, Blood Urea Nitrogen 17, Creatinine 0.8, Estimat Glomerular Filtration Rate > 60, Glucose Level 94, Calcium Level 8.4L Current Medications Medications (Trade) Dose Ordered Sig/Luis Route PRN Reason Start Time Stop Time Status Last Admin Dose Admin Acetaminophen (Tylenol) 650 mg Q4H PRN ORAL fever 12/15/18 14:54 01/14/19 14:53 Albuterol/ Ipratropium (Albuterol/ Ipratropium) 3 ml Q4H PRN HHN Shortness of Breath 12/15/18 14:54 12/20/18 14:53 Atorvastatin Calcium (Lipitor) 80 mg BEDTIME ORAL 12/15/18 21:00 01/14/19 20:59 12/18/18 21:54 Clonidine HCl (Catapres Tab) 0.1 mg Q4H PRN ORAL For High Blood Pressure 12/15/18 14:56 01/14/19 14:55 Clopidogrel Bisulfate (Plavix) 75 mg DAILY ORAL 12/16/18 09:00 01/14/19 08:59 12/19/18 08:29 Dextrose (Dextrose 50%) 25 ml Q30M PRN IV Hypoglycemia 12/15/18 15:15 01/13/19 23:44 Dextrose (Dextrose 50%) 50 ml Q30M PRN IV Hypoglycemia 12/15/18 15:15 01/13/19 23:44 Duloxetine HCl (Cymbalta) 30 mg DAILY ORAL 12/16/18 09:00 01/14/19 08:59 12/19/18 08:29 Gabapentin (Neurontin) 600 mg THREE TIMES A DAY ORAL 12/15/18 18:00 01/14/19 08:59 12/19/18 17:19 Heparin Sodium (Porcine) (Heparin 5000 units/ml) 5,000 units EVERY 12 HOURS SUBQ 12/15/18 21:00 01/14/19 08:59 12/19/18 08:28 Hydromorphone HCl (Dilaudid) 3 mg Q4H PRN IVP Severe Pain (Pain Scale 7-10) 12/19/18 16:15 12/26/18 16:14 12/19/18 18:36 Levetiracetam (Keppra) 1,000 mg Q12HR ORAL 12/19/18 09:00 01/18/19 08:59 12/19/18 08:29 Lorazepam (Ativan 2mg/ml 1ml) 0.5 mg Q4H PRN IV For Anxiety 12/15/18 14:55 12/22/18 14:54 Lorazepam (Ativan 2mg/ml 1ml) 1 mg Q4H PRN IVP For Seizures 12/15/18 18:30 12/22/18 18:29 12/15/18 18:32 Nitroglycerin (Ntg) 0.4 mg Q5M X 3 DOSES PRN SL Prn Chest Pain 12/15/18 14:45 01/13/19 23:44 Ondansetron HCl (Zofran) 4 mg Q6H PRN IVP Nausea & Vomiting 12/15/18 14:55 01/14/19 14:54 12/17/18 10:19 Polyethylene Glycol (Miralax) 17 gm HSPRN PRN ORAL Constipation 12/15/18 14:55 01/14/19 14:54 Promethazine HCl/ Codeine (Phenergan with Codeine) 5 ml Q4H PRN ORAL For Cough 12/15/18 14:55 01/14/19 14:54 Temazepam (Restoril) 15 mg HSPRN PRN ORAL Insomnia 12/15/18 14:55 12/22/18 14:54 Trazodone HCl (Desyrel) 100 mg BEDTIME ORAL 12/15/18 21:00 01/14/19 20:59 12/18/18 21:54 Bill Dixon MD December 19, 2018 19:26
--- NOTE | 2018-12-19 19:50 | NUR ---
HAND-OFF: Report given to MICAELA BIRCH. RESTING COMFORTABLY IN BED, NO SIGN OF DISTRESS ROSANGELA
--- NOTE | 2018-12-19 19:51 | NUR ---
NURSE NOTES: Received patient sitting upright Alert and oriented, no sign of distress, denies pain at this time, ambulatory with steady gait. Seizure precautions maintained with padded side rails. IV left arm- A/C -patent and intact. Bed locked in lowest position, call light placed within reach. Will continue to monitor.
[2018-12-19 20:00] VITALS: BP 103/62
[2018-12-19] MEDS: TraZODone 100mg tab ORAL SCH (21:47)
[2018-12-19] MEDS: Atorvastatin 80mg tab ORAL SCH (21:48)
--- NOTE | 2018-12-19 22:45 | Progress Note ---
DATE: 12/18/2018 PSYCHOTHERAPY CONSULTATION PROGRESS NOTE SUBJECTIVE: This is a male patient, 53 years old. The patient today is feeling very depressed and helpless. The patient was stating that he has been feeling hopeless because he does not have an answer yet regarding his diagnosis . The patient is fearful because he states that many of family members have for the few reasons because of the stroke and is fearful that this will happen to him. He denies suicidal or homicidal thoughts of ideation. He is very cooperative and able to communicate and articulate thoughts and fears. I ASSESSED THE PATIENT. I PROVIDED THE PATIENT WITH: 1. Supportive psychotherapy, which provides the patient with emotional outlet and means to cope for the emotional distress and thoughts of fears and feelings of anxiety and depression today. Also, I am providing him with cognitive behavioral therapy that can help with range of problems that may involve patterns of being acting that are problematic and today we discussed positive coping skills and the patient is not focused on all the negative and catastrophic features that are future based thoughts and focused on at this time. Encouraging the patient to participate in treatment milieu with his medication regimen. PLAN: Plan is to maintain medication compliance addressing positive coping skills to stabilize mood, thoughts, and behavior. Psychotherapy provided for this patient, 20 minutes. This clinician has reviewed the patient's chart and discussed treatment with treatment team. Liu Jackman PsyD. DR: AUGUSTO JOB#: [id number] CC:
--- NOTE | 2018-12-19 23:15 | Consultation ---
DATE OF CONSULTATION: 12/17/2018 CARDIOLOGY CONSULTATION CONSULTING PHYSICIAN: Carlos Martins M.D. REFERRING PHYSICIAN: Ernesto Nicole D.O. REASON FOR CONSULTATION: Preoperative cardiac clearance for noncardiac surgery. HISTORY OF PRESENT ILLNESS: The patient is a very unfortunate 53-year-old gentleman, who presents to the emergency department from [facility] for evaluation and management of left-sided chest pain, weakness, as well as behavioral complaint for the past two days. The patient states that chest pain is dull, 7/10, nonradiating. In the emergency department, he was evaluated for possible stroke as the patient thought that he was having a stroke. The workup included chest x-ray, which showed no acute cardiopulmonary findings. The patient's initial blood pressure at the time of arrival to the hospital was 130/84 mmHg and heart rate was 90. His 12-lead electrocardiogram was significant for sinus rhythm with no ischemic changes. Troponin I level was 0. The patient's cardiovascular history is significant for history of hypertension only. The patient denies any prior history of coronary artery disease including myocardial infarction, or history of stent, angioplasty. Denies any prior history of congestive heart failure or progressive dyspnea. He states that his ambulation is limited due to morbid obesity, but he is capable of performing his usual and daily activities with no shortness of breath. There is no recent change in exercise tolerance either. PAST MEDICAL HISTORY: COPD, hypertension, pneumonia, renal failure, gastroesophageal reflux disease, sleep apnea, and epilepsy. PAST SURGICAL HISTORY: None. MEDICATIONS: List of medications in the nursing facility include acetaminophen 650 mg q.4 h. p.r.n. pain and temperature above 100.5 degrees Fahrenheit, amlodipine 5 mg daily, Lipitor 80 mg p.o. nightly, Dulcolax 10 mg RC daily p.r.n. constipation, Clopidogrel 75 mg p.o. daily, Colace 100 mg p.o. daily, Cymbalta 30 mg p.o. daily, Lovenox 40 mg subcutaneous daily, Lasix 20 mg p.o. q.8 h., gabapentin 900 mg three times a day, [place] 10/325 mg one tablet q.6 h. p.r.n. pain, DuoNeb one inhaler q.3 h. p.r.n. shortness of breath, acidophilus one tablet twice daily, Keppra 1000 mg oral three times a day, milk of magnesia 30 mL p.o. nightly p.r.n. constipation, methocarbamol 500 mg q.8 h. p.r.n. pain, Fleet Enema 133 mL rectal q.o.d. p.r.n. constipation, Nitrostat 0.4 mg sublingual q.5 minutes x3 dose p.r.n. chest pain, nitro paste 1 inch topical q.8 h., Zofran 4 mg p.o. q.4 h. p.r.n. nausea or vomiting, pantoprazole 40 mg p.o. twice daily, and senna two tablets p.o. nightly. FAMILY HISTORY: No premature coronary artery disease in first-degree relatives. SOCIAL HISTORY: Denies any tobacco, alcohol, or illicit drug use. REVIEW OF SYSTEMS: HEENT: Denies any headache, diplopia, or blurred vision. CONSTITUTIONAL: Denies any fever, chills, night sweats, or weight loss. CARDIOVASCULAR: Denies any shortness of breath. Complains of nonspecific chest pain. Denies any PND, orthopnea, or leg swelling. PULMONARY: Denies any cough or hemoptysis. GASTROINTESTINAL: Denies any nausea, vomiting, diarrhea, constipation, abdominal pain, or GI bleed. GENITOURINARY: Denies any hematuria, dysuria or incontinence. NEUROLOGICAL: Had some complaints of left-sided weakness, but no altered speech. There is no prior history of stroke. PHYSICAL EXAMINATION: VITAL SIGNS: Blood pressure at time of arrival to this facility was 130/84, respirations 18, pulse 90, and temperature 98.4 degrees Fahrenheit. O2 saturation 99% on room air. GENERAL: The patient is a very unfortunate 53-year-old gentleman, morbid obesity, in no apparent respiratory distress. HEENT: Atraumatic and normocephalic. Anicteric. Pupils are equal, round, and reactive to light and accommodation. Extraocular muscles intact. NECK: JVP less than 5 cm. No carotid bruits. Carotid upstrokes 2+ bilaterally. CARDIOVASCULAR: Normal S1, S2. Regular rate and rhythm. No murmurs, gallops, or rubs. PMI is at fourth intercostal space in the midclavicular line. LUNGS: Clear to auscultation bilaterally. ABDOMEN: Obese. There is large pannus, cannot appreciate hepatosplenomegaly. Positive bowel sounds. EXTREMITIES: No evidence of edema, clubbing, or cyanosis. LABORATORY FINDINGS: On 12/14/2018, WBC 7.3, hemoglobin 15.4, hematocrit 45.2, and platelet count 197,000. Sodium 140, potassium 4.6, chloride 106, bicarbonate 25, BUN 17, and creatinine 1.1. Glucose is 97. Calcium is 8.7. Troponin I was 0. Total cholesterol was 159, triglycerides 139, LDL 106, and HDL 31. TSH was 0.9. INR is 1.0. A 12-lead electrocardiogram, sinus rhythm at a rate of [address] and T-wave abnormalities. QT interval was 444. ASSESSMENT AND PLAN: The patient is a very unfortunate 53-year-old gentleman, seen in Cardiology consultation. He is scheduled for removal of pannus by in the near future. The patient is asymptomatic with the level of activity he carries out on a daily basis without having any shortness of breath or chest pain. Risk factors for coronary artery disease includes hypertension and age. His LDL is slightly elevated. I would consider 2-D echocardiography for assessment of LV systolic and diastolic function prior to surgery. This study would be ordered in this hospitalization. I, however, cleared him for above intermediate risk surgery with risk of coronary artery events perioperatively estimated to be less than 1%. We will continue to follow up in Cardiology consultation and make additional comment once the results of 2-D echocardiography is available. I would like to thank Dr. Nicole for the courtesy of this consultation. Carlos Martins M.D. DR: LISA JOB#: [id number] CC:
--- NOTE | 2018-12-19 23:50 | Neurology Progress Note ---
Interim History Interim History ROS Limited/Unobtainable: No Complaints: Left sided weakness/ spasticity Events: Improved strength in left arm, hand still weak Interim History This visit was performed on 12/19/[address] Brewster. No further seizures at this time. Neuropathic pain left arm continues Objective Physical Exam Last Vital Signs Date Time Temp Pulse Resp B/P (MAP) Pulse Ox O2 Delivery O2 Flow Rate FiO2 12/19/18 23:07 98.6 12/19/18 20:21 73 20 96 Room Air 21 12/19/18 20:00 103/62 (76) Laboratory Tests Test 12/19/18 16:25 White Blood Count 4.9 K/UL (4.8-10.8) Red Blood Count 4.33 M/UL (4.70-6.10) L Hemoglobin 13.1 G/DL (14.2-18.0) L Hematocrit 38.2 % (42.0-52.0) L Mean Corpuscular Volume 88 FL (80-99) Mean Corpuscular Hemoglobin 30.3 PG (27.0-31.0) Mean Corpuscular Hemoglobin Concent 34.3 G/DL (32.0-36.0) Red Cell Distribution Width 12.9 % (11.6-14.8) Platelet Count 163 K/UL (150-450) Mean Platelet Volume 5.6 FL (6.5-10.1) L Neutrophils (%) (Auto) 50.1 % (45.0-75.0) Lymphocytes (%) (Auto) 37.5 % (20.0-45.0) Monocytes (%) (Auto) 9.7 % (1.0-10.0) Eosinophils (%) (Auto) 1.7 % (0.0-3.0) Basophils (%) (Auto) 1.1 % (0.0-2.0) Sodium Level 140 MMOL/L (136-145) Potassium Level 5.1 MMOL/L (3.5-5.1) Chloride Level 106 MMOL/L (98-107) Carbon Dioxide Level 30 MMOL/L (21-32) Anion Gap 4 mmol/L (5-15) L Blood Urea Nitrogen 17 mg/dL (7-18) Creatinine 0.8 MG/DL (0.55-1.30) Estimat Glomerular Filtration Rate > 60 mL/min (>60) Glucose Level 94 MG/DL (74-106) Calcium Level 8.4 MG/DL (8.5-10.1) L General: well developed, well nourished, other - Morbidly obese Head: normocophalic Neck: no rigidity EENT: benign Neurologic Exam Mental Status: awake, alert, oriented x4, normal cognition, good mathematical skills, normal recent memory, normal remote memory, preserved visuospatial function Speech: normal speech, no dysarthia Language: normal language, no aphasia Cranial Nerve II: fundus normal, visual bonilla, no papilledema Cranial Nerves III, IV, : PERRLA, EOMI, pupils Cranial Nerve V: normal facial sensations, temporales function normal, masseters function normal, pterygoids function normal Cranial Nerve VII: normal facial expressions, other Cranial Nerve VIII: normal hearing, no nystagmus Cranial Nerve IX: normal palate elevation, gag response Cranial Nerve X: no voice hoarseness Cranial Nerve XI: SCM symmetric, trapezii function normal Cranial Nerve XII: tongue midline, no tongue atrophy/fasciculations Motor System: normal muscle tone, no involuntary movement, no muscle wasting Sensory: normal pinprick, normal light touch, normal position sense, normal graphesthesia Coordination: negative Romberg test Deep Tendon Reflexes: 1+ bicep (L), 1+ bicep (R), 1+ tricep (L), 1+ tricep (R) , 1+ brachioradialis (L), 1+ brachioradialis (R), 1+ knee (L), 1+ knee (R), 1+ ankle (L), 1+ ankle (R) Reflexes: flexor plantar (L), flexor plantar (R); extensor plantar (L), extensor plantar (R) Stance: other - Broad based Objective Left arm, predominantly hand weakness at this time. Alert and oriented, intermittently agitated / irritable Ambulatory with cellulitis persisting on RLE He does not have proximal left arm weakness at this time or facial weakness, tongue deviated on exam . Impression/Recommendations Problems: (1) Seizures Assessment & Plan: Keppra 1000mg BID PO Maintain SBP<140 Q4 Hour Neuro Checks Ativan 2mg PRN for seizure activity CT Head w/o contrast when able to rule out CVA - also for consideration of MRI if CT negative. - low suspicion of CVA due to normotensive status without risk factors of elevated BP/ HgBA1c or thyroid dysfunction. Na 135-145 Continue pain management - Lyrica 50mg TID - May increase to 75mg TID as needed Continue Gabapentin 600mg TID (2) Morbid obesity (3) COPD (chronic obstructive pulmonary disease) (4) Uncontrolled seizures (5) Left-sided weakness (6) Knee osteomyelits, right Status: stable, progressing Recommendations Continue neuroleptic meds as per psychiatry Some increased agitation - consider additiona 25mg Seroquel PRN for agitation Maintain SBP<140 PT/OT evals CT/ MRI follow up to rule out stroke EEG as outpatient Vicky Taylor N.P. December 19, 2018 23:50
[2018-12-20] VITALS: BP 110/65
[2018-12-20 03:55] VITALS: BP 123/77
--- NOTE | 2018-12-20 07:04 | NUR ---
NURSE NOTES: Pt refused labs this am.
--- NOTE | 2018-12-20 07:05 | NUR ---
HAND-OFF: Report given to MICAELA Johnson.
[2018-12-20 08:00] VITALS: BP 129/76
[2018-12-20] MEDS: DULoxetine 30mg cap ORAL SCH (08:30)
[2018-12-20] MEDS: Heparin 5000 units/ml inj SUBQ SCH ×2 (08:33→21:15)
--- NOTE | 2018-12-20 08:53 | NUR ---
NURSE NOTES: pt in bed with no sob nor in any form of distress noted. all due meds given as ordered. breathing regular and unlabored. denies any pain at this time. will continue to monitor
--- NOTE | 2018-12-20 08:55 | General Progress Note ---
Assessment/Plan Problem List: (1) Abdominal pannus ICD Codes: E65 - Localized adiposity SNOMED: 8284357811788 (2) Peripheral edema ICD Codes: R60.9 - Edema, unspecified SNOMED: 970428630 (3) Abdominal wall cellulitis ICD Codes: L03.311 - Cellulitis of abdominal wall SNOMED: 10887565 (4) Leg pain ICD Codes: M79.606 - Pain in leg, unspecified SNOMED: 90964908 (5) COPD (chronic obstructive pulmonary disease) ICD Codes: J44.9 - Chronic obstructive pulmonary disease, unspecified SNOMED: 72994395 (6) Seizures ICD Codes: R56.9 - Unspecified convulsions SNOMED: 16222977 (7) Morbid obesity ICD Codes: E66.01 - Morbid (severe) obesity due to excess calories SNOMED: 223057262 (8) Cerebrovascular accident ICD Codes: I63.9 - Cerebral infarction, unspecified SNOMED: 194225740 (9) Left-sided weakness ICD Codes: R53.1 - Weakness SNOMED: 037495663 Status: stable, progressing Assessment/Plan: pt diet neuro f/u wound care abx pain control cbc bmp am brotman aru eval Subjective Constitutional: Reports: weakness Allergies: Coded Allergies: ASPIRIN (Verified Allergy, Unknown, 07/14/18) KETOROLAC (Verified Allergy, Unknown, 07/14/18) PENICILLINS (Verified Allergy, Unknown, 07/14/18) Uncoded Allergies: PENICILIN (Allergy, Unknown, 12/14/18) All Systems: reviewed and negative except above Subjective sleepy calm in bed Objective Last 24 Hour Vital Signs Date Time Temp Pulse Resp B/P (MAP) Pulse Ox O2 Delivery O2 Flow Rate FiO2 12/20/18 08:45 Room Air 12/20/18 08:00 97.5 83 20 129/76 (93) 96 12/20/18 07:15 21 12/20/18 07:15 80 20 95 Room Air 21 12/20/18 07:11 80 20 91 Room Air 21 12/20/18 07:11 73 20 91 Room Air 21 12/20/18 07:08 98.3 12/20/18 03:55 98.3 79 22 123/77 (92) 96 12/20/18 00:00 98.6 83 18 110/65 (80) 97 12/19/18 20:21 73 20 96 Room Air 21 12/19/18 20:00 98.6 81 16 103/62 (76) 94 12/19/18 16:14 97.1 82 20 130/76 (94) 100 12/19/18 12:00 98.3 72 20 110/68 (82) 97 Intake and Output 12/19/18 12/20/18 19:00 07:00 Intake Total 1200 ml Balance 1200 ml Intake Oral 1200 ml # Voids 5 3 Laboratory Tests 12/19/18 16:25: White Blood Count 4.9, Red Blood Count 4.33L, Hemoglobin 13.1L, Hematocrit 38.2L , Mean Corpuscular Volume 88, Mean Corpuscular Hemoglobin 30.3, Mean Corpuscular Hemoglobin Concent 34.3, Red Cell Distribution Width 12.9, Platelet Count 163, Mean Platelet Volume 5.6L, Neutrophils (%) (Auto) 50.1, Lymphocytes ( %) (Auto) 37.5, Monocytes (%) (Auto) 9.7, Eosinophils (%) (Auto) 1.7, Basophils (%) (Auto) 1.1, Sodium Level 140, Potassium Level 5.1, Chloride Level 106, Carbon Dioxide Level 30, Anion Gap 4L, Blood Urea Nitrogen 17, Creatinine 0.8, Estimat Glomerular Filtration Rate > 60, Glucose Level 94, Calcium Level 8.4L Height (Feet): 5 Height (Inches): 10.00 Weight (Pounds): 409 General Appearance: lethargic EENT: normal ENT inspection Neck: normal alignment Cardiovascular: normal peripheral pulses, normal rate, regular rhythm Respiratory/Chest: chest wall non-tender, lungs clear, normal breath sounds Abdomen: normal bowel sounds, distended Extremities: normal inspection Edema: 1+ Arm (L), 1+ Arm (R), 1+ Leg (L), 1+ Leg (R), 1+ Pedal (L), 1+ Pedal ( R), 1+ Generalized Edema: trace edema Neurologic: motor weakness Skin: normal pigmentation, warm/dry Ernesto Nicole FlorinCarlaIsa QUIROZ December 20, 2018 08:55
--- NOTE | 2018-12-20 11:56 | General Progress Note ---
Assessment/Plan Assessment/Plan: (1) Lumbar DDD (2) Lumbar Spondylosis (3) Lumbar Radiculopathy (4) Morbid Obesity (5) Right knee pain (6) Right knee OA h/o ORIF We will continue patient on Dilaudid as needed. D/w Dr. Magaña and he concurred. Subjective Date patient seen: December 20, 2018 Time patient seen: 11:45 - am Allergies: Coded Allergies: ASPIRIN (Verified Allergy, Unknown, 07/14/18) KETOROLAC (Verified Allergy, Unknown, 07/14/18) PENICILLINS (Verified Allergy, Unknown, 07/14/18) Uncoded Allergies: PENICILIN (Allergy, Unknown, 12/14/18) Subjective REVIEW OF SYSTEMS: Denies rash, fever, chills, sweating, dizziness, drowsiness, blurred vision, sore throat, change in weight. No nausea, vomiting, diarrhea, or blood in the stool or urine. No bowel or bladder incontinence. No dysuria. He is complaining of low back pain SUBJECTIVE: Patient has been in bed continues to c/o pain which has been severe however the Dilaudid was changed to 3mg IV Q4H PRN and now the pain has been better tolerated. He has no new complaints at this time. Objective Last 24 Hour Vital Signs Date Time Temp Pulse Resp B/P (MAP) Pulse Ox O2 Delivery O2 Flow Rate FiO2 12/20/18 11:12 97.5 12/20/18 08:45 Room Air 12/20/18 08:00 97.5 83 20 129/76 (93) 96 12/20/18 07:15 21 12/20/18 07:15 80 20 95 Room Air 21 12/20/18 07:11 80 20 91 Room Air 21 12/20/18 07:11 73 20 91 Room Air 21 12/20/18 03:55 98.3 79 22 123/77 (92) 96 12/20/18 00:00 98.6 83 18 110/65 (80) 97 12/19/18 20:21 73 20 96 Room Air 21 12/19/18 20:00 98.6 81 16 103/62 (76) 94 12/19/18 16:14 97.1 82 20 130/76 (94) 100 12/19/18 12:00 98.3 72 20 110/68 (82) 97 Intake and Output 12/19/18 12/20/18 18:59 06:59 Intake Total 1200 ml Balance 1200 ml Intake Oral 1200 ml # Voids 5 3 Laboratory Tests 12/19/18 16:25: White Blood Count 4.9, Red Blood Count 4.33L, Hemoglobin 13.1L, Hematocrit 38.2L , Mean Corpuscular Volume 88, Mean Corpuscular Hemoglobin 30.3, Mean Corpuscular Hemoglobin Concent 34.3, Red Cell Distribution Width 12.9, Platelet Count 163, Mean Platelet Volume 5.6L, Neutrophils (%) (Auto) 50.1, Lymphocytes ( %) (Auto) 37.5, Monocytes (%) (Auto) 9.7, Eosinophils (%) (Auto) 1.7, Basophils (%) (Auto) 1.1, Sodium Level 140, Potassium Level 5.1, Chloride Level 106, Carbon Dioxide Level 30, Anion Gap 4L, Blood Urea Nitrogen 17, Creatinine 0.8, Estimat Glomerular Filtration Rate > 60, Glucose Level 94, Calcium Level 8.4L Height (Feet): 5 Height (Inches): 10.00 Weight (Pounds): 409 Objective GENERAL: Alert, awake, and oriented x3. LUNGS: Decreased breath sounds bilaterally. HEART: S1 and S2, regular. ABDOMEN: Obese. EXTREMITIES: No cyanosis. No clubbing. No edema. NEURO: No changes. lEiezer Nicole December 20, 2018 11:56
[2018-12-20 12:00] VITALS: BP 139/87
--- NOTE | 2018-12-20 14:24 | NUR ---
CASE MANAGEMENT: REVIEW SI: CVA . LEFT-SIDED WEAKNESS . ABDOMINAL WALL CELLULITIS . COPD T 97.5 HR 83 RR 20 BP 129/76 SAT 96% ROOM AIR IS: NEURONTIN PO QID HEPARIN SQ Q12HR PT EVAL MED/SURG STATUS DCP: PATIENT IS FROM [facility]
--- NOTE | 2018-12-20 15:00 | Progress Note ---
DATE: 12/20/2018 SUBJECTIVE: This is a 53-year-old male. Still has anxiety, depression, rule out CVA, but he still has a lot of anxiety, depression, insomnia. DIAGNOSIS: Major depressive disorder, severe, recurrent, without psychotic features. PLAN: Continue him on Cymbalta 30 mg daily as well as trazodone 100 at bedtime, Neurontin 600 mg 3 times a day. Provide him with 20 minutes of cognitive behavioral therapy to help him identify his automatic negative thoughts, help him convert those negative thoughts to more positive thoughts, to reduce depression, anxiety, suicidality. Chart reviewed. Discussed with staff. Seen and assessed in his room. Encouraged him to interact appropriately with staff. Laney Mcghee M.D. DR: GEENA JOB#: [id number] CC:
--- NOTE | 2018-12-20 15:41 | NUR ---
PT Note Acknowledged order for PT eval. On chart review, order was noted for vascular study to BLE's to r/ DVT. Study has not yet been performed as of this writing. Will wait for results of study prior to performing the PT eval. CN was notified.
[2018-12-20 16:00] VITALS: BP 132/80
--- NOTE | 2018-12-20 19:19 | NUR ---
HAND-OFF: Report given to MICAELA Krishnan.
--- NOTE | 2018-12-20 19:20 | NUR ---
NURSE NOTES: Pt sitting up in bed with no sob nor distress noted. Breathing regular, even and and unlabored, On room air. Denies any pain at this time. will continue to monitor
[2018-12-20 20:00] VITALS: BP 139/84
--- NOTE | 2018-12-20 20:29 | Infectious Diseases Prog Note ---
Assessment/Plan Assessment/Plan Assessment: L side weakness/spasticity- thought be 2ry to seizures- r/O CVA- no active infectious process at present (pt afebrile- doubt meningitis at this moment) Afebrile No leukocytosis -CXR: No acute findings CVA HTN bipolar disorder w/ psychotic features tobacco abuse anxiety disorder chronic pain CHF seizure disorder COPD morbid obesity Dm2 HTN SNF resident Plan: -Continue to monitor off abx -f/u cx -Monitor CBC/CMP, temperatures -neuro f/u- plan for CT head, include neck as lump in back of neck; however pt did not fit on CT scan machine due to weight -aspiration precautions Subjective Constitutional: Denies: no symptoms, fever, chills, fatigue, anorexia, drenching sweats, other Allergies: Coded Allergies: ASPIRIN (Verified Allergy, Unknown, 07/14/18) KETOROLAC (Verified Allergy, Unknown, 07/14/18) PENICILLINS (Verified Allergy, Unknown, 07/14/18) Uncoded Allergies: PENICILIN (Allergy, Unknown, 12/14/18) Objective Vital Signs Last 24 Hour Vital Signs Date Time Temp Pulse Resp B/P (MAP) Pulse Ox O2 Delivery O2 Flow Rate FiO2 12/20/18 19:14 98.1 12/20/18 16:00 98.1 79 20 132/80 (97) 96 12/20/18 12:00 97.9 80 20 139/87 (104) 94 12/20/18 08:45 Room Air 12/20/18 08:00 97.5 83 20 129/76 (93) 96 12/20/18 07:15 21 12/20/18 07:15 80 20 95 Room Air 21 12/20/18 07:11 80 20 91 Room Air 21 12/20/18 07:11 73 20 91 Room Air 21 12/20/18 03:55 98.3 79 22 123/77 (92) 96 12/20/18 00:00 98.6 83 18 110/65 (80) 97 Height (Feet): 5 Height (Inches): 10.00 Weight (Pounds): 409 HEENT: atraumatic Respiratory/Chest: no respiratory distress Cardiovascular: regular rhythm Abdomen: soft, non tender Current Medications Medications (Trade) Dose Ordered Sig/Luis Route PRN Reason Start Time Stop Time Status Last Admin Dose Admin Acetaminophen (Tylenol) 650 mg Q4H PRN ORAL fever 12/15/18 14:54 01/14/19 14:53 Atorvastatin Calcium (Lipitor) 80 mg BEDTIME ORAL 12/15/18 21:00 01/14/19 20:59 12/19/18 21:48 Clonidine HCl (Catapres Tab) 0.1 mg Q4H PRN ORAL For High Blood Pressure 12/15/18 14:56 01/14/19 14:55 Clopidogrel Bisulfate (Plavix) 75 mg DAILY ORAL 12/16/18 09:00 01/14/19 08:59 12/20/18 08:30 Dextrose (Dextrose 50%) 25 ml Q30M PRN IV Hypoglycemia 12/15/18 15:15 01/13/19 23:44 Dextrose (Dextrose 50%) 50 ml Q30M PRN IV Hypoglycemia 12/15/18 15:15 01/13/19 23:44 Duloxetine HCl (Cymbalta) 30 mg DAILY ORAL 12/16/18 09:00 01/14/19 08:59 12/20/18 08:30 Gabapentin (Neurontin) 600 mg THREE TIMES A DAY ORAL 12/15/18 18:00 01/14/19 08:59 12/20/18 17:11 Heparin Sodium (Porcine) (Heparin 5000 units/ml) 5,000 units EVERY 12 HOURS SUBQ 12/15/18 21:00 01/14/19 08:59 12/20/18 08:33 Hydromorphone HCl (Dilaudid) 3 mg Q4H PRN IVP Severe Pain (Pain Scale 7-10) 12/19/18 16:15 12/26/18 16:14 12/20/18 18:44 Levetiracetam (Keppra) 1,000 mg Q12HR ORAL 12/19/18 09:00 01/18/19 08:59 12/20/18 08:30 Lorazepam (Ativan 2mg/ml 1ml) 0.5 mg Q4H PRN IV For Anxiety 12/15/18 14:55 12/22/18 14:54 Lorazepam (Ativan 2mg/ml 1ml) 1 mg Q4H PRN IVP For Seizures 12/15/18 18:30 12/22/18 18:29 12/15/18 18:32 Nitroglycerin (Ntg) 0.4 mg Q5M X 3 DOSES PRN SL Prn Chest Pain 12/15/18 14:45 01/13/19 23:44 Ondansetron HCl (Zofran) 4 mg Q6H PRN IVP Nausea & Vomiting 12/15/18 14:55 01/14/19 14:54 12/17/18 10:19 Polyethylene Glycol (Miralax) 17 gm HSPRN PRN ORAL Constipation 12/15/18 14:55 01/14/19 14:54 Promethazine HCl/ Codeine (Phenergan with Codeine) 5 ml Q4H PRN ORAL For Cough 12/15/18 14:55 01/14/19 14:54 Temazepam (Restoril) 15 mg HSPRN PRN ORAL Insomnia 12/15/18 14:55 12/22/18 14:54 Trazodone HCl (Desyrel) 100 mg BEDTIME ORAL 12/15/18 21:00 01/14/19 20:59 12/19/18 21:47 Harry Frank MD December 20, 2018 20:29
[2018-12-20] MEDS: Atorvastatin 80mg tab ORAL SCH (21:14)
[2018-12-20] MEDS: TraZODone 100mg tab ORAL SCH (21:14)
--- NOTE | 2018-12-20 23:08 | Neurology Progress Note ---
Interim History Interim History ROS Limited/Unobtainable: No Complaints: Left sided weakness/ spasticity Events: ARM WEAKNESS RESOLVED, HAND Weakness persisting Interim History This visit was performed on December 20, [address] Amador Brewster. Review of Systems All Systems: reviewed and negative except above Objective Physical Exam Last Vital Signs Date Time Temp Pulse Resp B/P (MAP) Pulse Ox O2 Delivery O2 Flow Rate FiO2 12/20/18 21:00 Room Air 12/20/18 20:42 69 20 94 21 12/20/18 20:00 97.5 139/84 (102) General: well developed, well nourished, other - Morbidly obese Head: normocophalic Neck: no rigidity EENT: benign Neurologic Exam Mental Status: awake, alert, oriented x4, normal cognition, good mathematical skills, normal recent memory, normal remote memory, preserved visuospatial function Speech: normal speech, no dysarthia Language: normal language, no aphasia Cranial Nerve II: fundus normal, visual bonilla, no papilledema Cranial Nerves III, IV, : PERRLA, EOMI, pupils Cranial Nerve V: normal facial sensations, temporales function normal, masseters function normal, pterygoids function normal Cranial Nerve VII: normal facial expressions, other Cranial Nerve VIII: normal hearing, no nystagmus Cranial Nerve IX: normal palate elevation, gag response Cranial Nerve X: no voice hoarseness Cranial Nerve XI: SCM symmetric, trapezii function normal Cranial Nerve XII: tongue midline, no tongue atrophy/fasciculations Motor System: normal muscle tone, no involuntary movement, no muscle wasting Sensory: normal pinprick, normal light touch, normal position sense, normal graphesthesia Coordination: negative Romberg test Deep Tendon Reflexes: 1+ bicep (L), 1+ bicep (R), 1+ tricep (L), 1+ tricep (R) , 1+ brachioradialis (L), 1+ brachioradialis (R), 1+ knee (L), 1+ knee (R), 1+ ankle (L), 1+ ankle (R) Reflexes: flexor plantar (L), flexor plantar (R); extensor plantar (L), extensor plantar (R) Stance: other - Broad based Objective Left arm, predominantly hand weakness at this time. Alert and oriented, intermittently agitated / irritable Ambulatory with cellulitis persisting on RLE He does not have proximal left arm weakness at this time or facial weakness, tongue deviated on exam . Impression/Recommendations Problems: (1) Seizures Assessment & Plan: Keppra 1000mg BID PO Maintain SBP<140 Q4 Hour Neuro Checks Ativan 2mg PRN for seizure activity CT Head w/o contrast when able to rule out CVA - also for consideration of MRI if CT negative. - low suspicion of CVA due to normotensive status without risk factors of elevated BP/ HgBA1c or thyroid dysfunction. Na 135-145 Continue pain management - Lyrica 50mg TID - May increase to 75mg TID as needed Continue Gabapentin 600mg TID (2) Morbid obesity (3) COPD (chronic obstructive pulmonary disease) (4) Uncontrolled seizures (5) Left-sided weakness (6) Knee osteomyelits, right Status: stable, ambulating well Recommendations Continue neuroleptic meds as per psychiatry Some increased agitation - consider additiona 25mg Seroquel PRN for agitation Maintain SBP<140 PT/OT evals CT/ MRI follow up to rule out stroke - wait list for transfer and open MRI scanner EEG as outpatient Continue Lyrica 50mg TID---will increase as needed Vicky Taylor N.P. December 20, 2018 23:08
--- NOTE | 2018-12-20 23:39 | Cardiology Progress Note ---
Assessment/Plan Assessment/Plan 1. Morbid obesity with pannus formation, 2D echo from Jun 2018 has revealed normal LV systolic and diastolic function. He is clear for intermediate risk "removal of pannus", with the risk of coronary artery events perioperatively estimated to be less than 1%. 2. Chronic obstructive pulmonary disease. 3. Chronic venous insufficiency. 4. Hx of HTN, diet controlled. Subjective Subjective No cardiac events noted. Denies chest pain or SOB. Objective Last 24 Hour Vital Signs Date Time Temp Pulse Resp B/P (MAP) Pulse Ox O2 Delivery O2 Flow Rate FiO2 12/20/18 21:00 Room Air 12/20/18 20:42 69 20 94 Room Air 21 12/20/18 20:00 97.5 76 20 139/84 (102) 96 12/20/18 19:14 98.1 12/20/18 16:00 98.1 79 20 132/80 (97) 96 12/20/18 12:00 97.9 80 20 139/87 (104) 94 12/20/18 08:45 Room Air 12/20/18 08:00 97.5 83 20 129/76 (93) 96 12/20/18 07:15 21 12/20/18 07:15 80 20 95 Room Air 21 12/20/18 07:11 80 20 91 Room Air 21 12/20/18 07:11 73 20 91 Room Air 21 12/20/18 03:55 98.3 79 22 123/77 (92) 96 12/20/18 00:00 98.6 83 18 110/65 (80) 97 Intake and Output 12/19/18 12/20/18 19:00 07:00 Intake Total 1200 ml Balance 1200 ml Intake Oral 1200 ml # Voids 5 3 2D Echo: Normal LV systolic function, RVSP 34 mmHg, RAP elevated at 15 mmHg Objective HEENT: Atraumatic and normocephalic. Anicteric. Pupils are equal, round, and reactive to light and accommodation. NECK: JVP cannot be assessed due to obesity. No carotid bruit. CARDIOVASCULAR: Normal S1, S2. Regular rate and rhythm. No murmurs, gallops, or rubs. PMI is at fourth intercostal space at the midclavicular line. LUNGS: Clear to auscultation bilaterally. ABDOMEN: Distended due to pannus formation, cannot palpate hepatosplenomegaly. Positive bowel sounds. EXTREMITIES: No lower extremity edema, clubbing or cyanosis. Carlos Martins MD December 20, 2018 23:39
[2018-12-21] VITALS (7 sets, daily range): BP systolic 112–137; BP diastolic 62–92
[2018-12-21] MEDS: Lyrica 50mg cap ORAL SCH ×4 (00:19→17:08)
--- NOTE | 2018-12-21 06:56 | NUR ---
HAND-OFF: Report given to MICAELA Johnson.
--- NOTE | 2018-12-21 07:00 | Progress Note ---
DATE: 12/21/2018 SUBJECTIVE: This is a 53-year-old male patient, rule out CVA, cerebrovascular accident. Still this patient is very confused and disorganized. He has no logical plans for his own self-care, but he does have a lot of anxiety and depression worsened by stress of his medical illness. That is why, his attending has requested daily psychiatric consultation. MENTAL STATUS EXAMINATION: This is a 53-year-old male. Appearance is disheveled. Attitude, irritable and agitated. Affect, guarded and restricted. Intellect poor. Mood depressed and anxious. Motor activity, psychomotor agitation. Attention span is poor. Orientation x2. Speech is low volume and slurred. Thought process, disorganized, illogical. Insight and judgment is poor. DIAGNOSIS: Major depressive disorder, mild, recurrent with psychotic features, rule out dementia with psychosis. PLAN: I am going to continue to treat the patient with Cymbalta 30 mg daily, Neurontin 600 mg 3 times a day, and trazodone 100 at bedtime. Provide him with 20 minutes of cognitive behavioral therapy to help him identify his automatic negative thoughts, help him convert those negative thoughts to more positive thoughts to reduce depression, anxiety, mood lability. Chart reviewed. Discussed with staff. Seen and assessed in his room. 20 minutes of cognitive therapy was provided to help him identify his automatic negative thoughts help him convert those negative thoughts to more positive thoughts to reduce depression, anxiety, suicidality. Laney Mcghee M.D. DR: GEENA JOB#: [id number] CC:
--- NOTE | 2018-12-21 07:13 | NUR ---
NURSE NOTES: pt in bed with no sob nor in any form of distress noted. pain med given from previous shift. denies any pain at this time. will continue to monitor
[2018-12-21] MEDS: DULoxetine 30mg cap ORAL SCH (08:15)
[2018-12-21] MEDS: Heparin 5000 units/ml inj SUBQ SCH ×2 (08:16→22:48)
--- NOTE | 2018-12-21 08:16 | General Progress Note ---
Assessment/Plan Problem List: (1) Abdominal pannus ICD Codes: E65 - Localized adiposity SNOMED: 2579462722379 (2) Peripheral edema ICD Codes: R60.9 - Edema, unspecified SNOMED: 373167712 (3) Abdominal wall cellulitis ICD Codes: L03.311 - Cellulitis of abdominal wall SNOMED: 22619696 (4) Leg pain ICD Codes: M79.606 - Pain in leg, unspecified SNOMED: 28634325 (5) COPD (chronic obstructive pulmonary disease) ICD Codes: J44.9 - Chronic obstructive pulmonary disease, unspecified SNOMED: 28382427 (6) Seizures ICD Codes: R56.9 - Unspecified convulsions SNOMED: 42745447 (7) Morbid obesity ICD Codes: E66.01 - Morbid (severe) obesity due to excess calories SNOMED: 350327025 (8) Cerebrovascular accident ICD Codes: I63.9 - Cerebral infarction, unspecified SNOMED: 125216250 (9) Left-sided weakness ICD Codes: R53.1 - Weakness SNOMED: 147640446 Status: stable, progressing Assessment/Plan: pt diet neuro f/u wound care abx pain control cbc bmp am brotman aru eval Subjective Constitutional: Reports: weakness Allergies: Coded Allergies: ASPIRIN (Verified Allergy, Unknown, 07/14/18) KETOROLAC (Verified Allergy, Unknown, 07/14/18) PENICILLINS (Verified Allergy, Unknown, 07/14/18) Uncoded Allergies: PENICILIN (Allergy, Unknown, 12/14/18) All Systems: reviewed and negative except above Subjective sleepy calm in bed Objective Last 24 Hour Vital Signs Date Time Temp Pulse Resp B/P (MAP) Pulse Ox O2 Delivery O2 Flow Rate FiO2 12/21/18 07:13 98.1 12/21/18 04:00 98.1 90 20 112/77 (89) 96 12/21/18 00:00 98.1 82 18 134/92 (106) 97 12/20/18 21:00 Room Air 12/20/18 20:42 69 20 94 Room Air 21 12/20/18 20:00 97.5 76 20 139/84 (102) 96 12/20/18 16:00 98.1 79 20 132/80 (97) 96 12/20/18 12:00 97.9 80 20 139/87 (104) 94 12/20/18 08:45 Room Air Intake and Output 12/20/18 12/21/18 19:00 07:00 Intake Total 1840 ml Balance 1840 ml Intake Oral 1840 ml # Voids 8 7 Height (Feet): 5 Height (Inches): 10.00 Weight (Pounds): 409 General Appearance: lethargic EENT: normal ENT inspection Neck: normal alignment Cardiovascular: normal peripheral pulses, normal rate, regular rhythm Respiratory/Chest: chest wall non-tender, lungs clear, normal breath sounds Abdomen: hypoactive bowel sounds, distended Extremities: swelling Edema: 1+ Arm (L), 1+ Arm (R), 1+ Leg (L), 1+ Leg (R), 1+ Pedal (L), 1+ Pedal ( R), 1+ Generalized Edema: trace edema Neurologic: responsive, motor weakness Skin: normal pigmentation, warm/dry Ernesto Nicole DO December 21, 2018 08:16
--- NOTE | 2018-12-21 10:31 | General Progress Note ---
Assessment/Plan Status: stable, progressing Assessment/Plan: (1) Lumbar DDD (2) Lumbar Spondylosis (3) Lumbar Radiculopathy (4) Morbid Obesity (5) Right knee pain (6) Right knee OA h/o ORIF We will continue patient on Dilaudid as needed. D/w Dr. Magaña and he concurred. Subjective Date patient seen: December 21, 2018 Time patient seen: 10:15 - am Allergies: Coded Allergies: ASPIRIN (Verified Allergy, Unknown, 07/14/18) KETOROLAC (Verified Allergy, Unknown, 07/14/18) PENICILLINS (Verified Allergy, Unknown, 07/14/18) Uncoded Allergies: PENICILIN (Allergy, Unknown, 12/14/18) Subjective REVIEW OF SYSTEMS: Denies rash, fever, chills, sweating, dizziness, drowsiness, blurred vision, sore throat, change in weight. No nausea, vomiting, diarrhea, or blood in the stool or urine. No bowel or bladder incontinence. No dysuria. He is complaining of low back pain SUBJECTIVE: Patient in bed pain has been tolerated on the Dilaudid. He has no new complaints at this time. Objective Last 24 Hour Vital Signs Date Time Temp Pulse Resp B/P (MAP) Pulse Ox O2 Delivery O2 Flow Rate FiO2 12/21/18 08:23 Room Air 12/21/18 08:00 97.7 91 20 137/62 (87) 96 12/21/18 07:13 98.1 12/21/18 04:00 98.1 90 20 112/77 (89) 96 12/21/18 00:00 98.1 82 18 134/92 (106) 97 12/20/18 21:00 Room Air 12/20/18 20:42 69 20 94 Room Air 21 12/20/18 20:00 97.5 76 20 139/84 (102) 96 12/20/18 16:00 98.1 79 20 132/80 (97) 96 12/20/18 12:00 97.9 80 20 139/87 (104) 94 Intake and Output 12/20/18 12/21/18 19:00 07:00 Intake Total 1840 ml Balance 1840 ml Intake Oral 1840 ml # Voids 8 7 Height (Feet): 5 Height (Inches): 10.00 Weight (Pounds): 409 Objective GENERAL: Alert, awake, and oriented x3. LUNGS: Decreased breath sounds bilaterally. HEART: S1 and S2, regular. ABDOMEN: Obese. EXTREMITIES: No cyanosis. No clubbing. No edema. NEURO: No changes. Eliezer Nicole December 21, 2018 10:31
--- NOTE | 2018-12-21 15:53 | Pulmonology Progress Note ---
Assessment/Plan Problems: (1) Peripheral edema (2) Cellulitis (3) Seizures (4) Cerebrovascular accident (5) Left-sided weakness (6) COPD (chronic obstructive pulmonary disease) (7) Right heart failure (8) Lumbar spondylosis (9) ADALBERTO (obstructive sleep apnea) (10) Morbid obesity Assessment/Plan all meds /notes reviewed\ start on laxis and bactrim Ds plastic surgery contacted, will do the procedure after clearance by cardio. I cleared him as pulmonary. pt/ot respiratory treatment titrate fio2 to sat of 92% dvt prophylaxis Subjective ROS Limited/Unobtainable: No Interval Events: feels swollen HEENT: Repors: no symptoms Allergies: Coded Allergies: ASPIRIN (Verified Allergy, Unknown, 07/14/18) KETOROLAC (Verified Allergy, Unknown, 07/14/18) PENICILLINS (Verified Allergy, Unknown, 07/14/18) Uncoded Allergies: PENICILIN (Allergy, Unknown, 12/14/18) Objective Last 24 Hour Vital Signs Date Time Temp Pulse Resp B/P (MAP) Pulse Ox O2 Delivery O2 Flow Rate FiO2 12/21/18 15:37 97.9 89 20 120/76 (91) 95 12/21/18 15:14 98.2 12/21/18 12:00 98.2 95 20 136/66 (89) 96 12/21/18 08:23 Room Air 12/21/18 08:00 97.7 91 20 137/62 (87) 96 12/21/18 04:00 98.1 90 20 112/77 (89) 96 12/21/18 00:00 98.1 82 18 134/92 (106) 97 12/20/18 21:00 Room Air 12/20/18 20:42 69 20 94 Room Air 21 12/20/18 20:00 97.5 76 20 139/84 (102) 96 12/20/18 16:00 98.1 79 20 132/80 (97) 96 Intake and Output 12/20/18 12/21/18 18:59 06:59 Intake Total 1840 ml Balance 1840 ml Intake Oral 1840 ml # Voids 8 7 Objective HEENT: normocephalic, atraumatic Respiratory/Chest: chest wall non-tender, lungs clear Cardiovascular: normal peripheral pulses, normal rate Abdomen: normal bowel sounds, no organomegaly, massive fat on abdomen Extremities: no cyanosis Skin: no lesions Current Medications Medications (Trade) Dose Ordered Sig/Luis Route PRN Reason Start Time Stop Time Status Last Admin Dose Admin Acetaminophen (Tylenol) 650 mg Q4H PRN ORAL fever 12/15/18 14:54 01/14/19 14:53 Atorvastatin Calcium (Lipitor) 80 mg BEDTIME ORAL 12/15/18 21:00 01/14/19 20:59 12/20/18 21:14 Clonidine HCl (Catapres Tab) 0.1 mg Q4H PRN ORAL For High Blood Pressure 12/15/18 14:56 01/14/19 14:55 Clopidogrel Bisulfate (Plavix) 75 mg DAILY ORAL 12/16/18 09:00 01/14/19 08:59 12/21/18 08:15 Dextrose (Dextrose 50%) 25 ml Q30M PRN IV Hypoglycemia 12/15/18 15:15 01/13/19 23:44 Dextrose (Dextrose 50%) 50 ml Q30M PRN IV Hypoglycemia 12/15/18 15:15 01/13/19 23:44 Duloxetine HCl (Cymbalta) 30 mg DAILY ORAL 12/16/18 09:00 01/14/19 08:59 12/21/18 08:15 Gabapentin (Neurontin) 600 mg THREE TIMES A DAY ORAL 12/15/18 18:00 01/14/19 08:59 12/21/18 12:58 Heparin Sodium (Porcine) (Heparin 5000 units/ml) 5,000 units EVERY 12 HOURS SUBQ 12/15/18 21:00 01/14/19 08:59 12/21/18 08:16 Hydromorphone HCl (Dilaudid) 3 mg Q4H PRN IVP Severe Pain (Pain Scale 7-10) 12/19/18 16:15 12/26/18 16:14 12/21/18 14:44 Levetiracetam (Keppra) 1,000 mg Q12HR ORAL 12/19/18 09:00 01/18/19 08:59 12/21/18 08:15 Lorazepam (Ativan 2mg/ml 1ml) 0.5 mg Q4H PRN IV For Anxiety 12/15/18 14:55 12/22/18 14:54 Lorazepam (Ativan 2mg/ml 1ml) 1 mg Q4H PRN IVP For Seizures 12/15/18 18:30 12/22/18 18:29 12/15/18 18:32 Nitroglycerin (Ntg) 0.4 mg Q5M X 3 DOSES PRN SL Prn Chest Pain 12/15/18 14:45 01/13/19 23:44 Ondansetron HCl (Zofran) 4 mg Q6H PRN IVP Nausea & Vomiting 12/15/18 14:55 01/14/19 14:54 12/17/18 10:19 Polyethylene Glycol (Miralax) 17 gm HSPRN PRN ORAL Constipation 12/15/18 14:55 01/14/19 14:54 Pregabalin (Lyrica) 50 mg THREE TIMES A DAY ORAL 12/20/18 23:00 01/19/19 22:59 12/21/18 12:59 Promethazine HCl/ Codeine (Phenergan with Codeine) 5 ml Q4H PRN ORAL For Cough 12/15/18 14:55 01/14/19 14:54 Temazepam (Restoril) 15 mg HSPRN PRN ORAL Insomnia 12/15/18 14:55 12/22/18 14:54 Trazodone HCl (Desyrel) 100 mg BEDTIME ORAL 12/15/18 21:00 01/14/19 20:59 12/20/18 21:14 Bill Dixon MD December 21, 2018 15:53
--- NOTE | 2018-12-21 16:32 | NUR ---
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 LEFT-SIDED WEAKNESS . ABDOMINAL WALL CELLULITIS . COPD VS: BP 136/66, P 95, T 96.8, RR 20, SpO2 95 IS:LASIX 20mg LYRICA 50mg DESYREL 100mg LIPITOR 80mg CYMBALTA 30mg PLAVIX 75mg KEPPRA 1,000mg ME/SURG STATUS
[2018-12-21] MEDS: Bactrim-DS 1 tab ORAL SCH (17:08)
--- NOTE | 2018-12-21 19:31 | NUR ---
HAND-OFF: Report given to MICAELA Kim.
--- NOTE | 2018-12-21 20:00 | NUR ---
NURSE NOTES: Patient received sitting on the side of bed, awake alert. Call light and personal belongings within reach. Will continue plan of care.
--- NOTE | 2018-12-21 22:29 | Cardiology Progress Note ---
Assessment/Plan Assessment/Plan 1. Morbid obesity with pannus formation, 2D echo from Jun 2018 has revealed normal LV systolic and diastolic function. Clear for the surgery. 2. Chronic obstructive pulmonary disease. 3. Chronic venous insufficiency. 4. Hx of HTN, diet controlled. Subjective Subjective Denies chest pain or SOB. Objective Last 24 Hour Vital Signs Date Time Temp Pulse Resp B/P (MAP) Pulse Ox O2 Delivery O2 Flow Rate FiO2 12/21/18 19:13 97.9 12/21/18 15:37 97.9 89 20 120/76 (91) 95 12/21/18 12:00 98.2 95 20 136/66 (89) 96 12/21/18 08:23 Room Air 12/21/18 08:00 97.7 91 20 137/62 (87) 96 12/21/18 04:00 98.1 90 20 112/77 (89) 96 12/21/18 00:00 98.1 82 18 134/92 (106) 97 Intake and Output 12/20/18 12/21/18 19:00 07:00 Intake Total 1840 ml Balance 1840 ml Intake Oral 1840 ml # Voids 8 7 2D Echo: Normal LV systolic function, RVSP 34 mmHg, RAP elevated at 15 mmHg Objective HEENT: Atraumatic and normocephalic. Anicteric. Pupils are equal, round, and reactive to light and accommodation. NECK: JVP cannot be assessed due to obesity. No carotid bruit. CARDIOVASCULAR: Normal S1, S2. Regular rate and rhythm. No murmurs, gallops, or rubs. PMI is at fourth intercostal space at the midclavicular line. LUNGS: Clear to auscultation bilaterally. ABDOMEN: Distended due to pannus formation, cannot palpate hepatosplenomegaly. Positive bowel sounds. EXTREMITIES: No lower extremity edema, clubbing or cyanosis. Carlos Martins MD December 21, 2018 22:29
--- NOTE | 2018-12-21 22:42 | Neurology Progress Note ---
Interim History Interim History ROS Limited/Unobtainable: No Complaints: Left sided weakness/ spasticity Events: ARM WEAKNESS RESOLVED, HAND Weakness persisting Interim History This visit was performed on December 21, [address] Amador Brewster. Hand pain/ strength improving . Objective Physical Exam Last Vital Signs Date Time Temp Pulse Resp B/P (MAP) Pulse Ox O2 Delivery O2 Flow Rate FiO2 12/21/18 19:13 97.9 12/21/18 15:37 89 20 120/76 (91) 95 12/21/18 08:23 Room Air 12/20/18 20:42 21 General: well developed, well nourished, other - Morbidly obese Head: normocophalic Neck: no rigidity EENT: benign Neurologic Exam Mental Status: awake, alert, oriented x4, normal cognition, good mathematical skills, normal recent memory, normal remote memory, preserved visuospatial function Speech: normal speech, no dysarthia Language: normal language, no aphasia Cranial Nerve II: fundus normal, visual bonilla, no papilledema Cranial Nerves III, IV, : PERRLA, EOMI, pupils Cranial Nerve V: normal facial sensations, temporales function normal, masseters function normal, pterygoids function normal Cranial Nerve VII: normal facial expressions, other Cranial Nerve VIII: normal hearing, no nystagmus Cranial Nerve IX: normal palate elevation, gag response Cranial Nerve X: no voice hoarseness Cranial Nerve XI: SCM symmetric, trapezii function normal Cranial Nerve XII: tongue midline, no tongue atrophy/fasciculations Motor System: normal muscle tone, no involuntary movement, no muscle wasting Sensory: normal pinprick, normal light touch, normal position sense, normal graphesthesia Coordination: negative Romberg test Deep Tendon Reflexes: 1+ bicep (L), 1+ bicep (R), 1+ tricep (L), 1+ tricep (R) , 1+ brachioradialis (L), 1+ brachioradialis (R), 1+ knee (L), 1+ knee (R), 1+ ankle (L), 1+ ankle (R) Reflexes: flexor plantar (L), flexor plantar (R); extensor plantar (L), extensor plantar (R) Stance: other - Broad based Objective Left arm, predominantly hand weakness at this time. Alert and oriented, intermittently agitated / irritable Ambulatory with cellulitis persisting on RLE He does not have proximal left arm weakness at this time or facial weakness, tongue deviated on exam . Impression/Recommendations Problems: (1) Seizures Assessment & Plan: Keppra 1000mg BID PO Maintain SBP<140 Q4 Hour Neuro Checks Ativan 2mg PRN for seizure activity CT Head w/o contrast when able to rule out CVA - also for consideration of MRI if CT negative. - low suspicion of CVA due to normotensive status without risk factors of elevated BP/ HgBA1c or thyroid dysfunction. Na 135-145 Continue pain management - Lyrica 50mg TID - May increase to 75mg TID as needed Continue Gabapentin 600mg TID (2) Morbid obesity (3) COPD (chronic obstructive pulmonary disease) (4) Uncontrolled seizures (5) Left-sided weakness (6) Knee osteomyelits, right Status: stable, progressing, tolerating diet, ambulating well Recommendations Continue neuroleptic meds as per psychiatry Some increased agitation - consider additiona 25mg Seroquel PRN for agitation Maintain SBP<140 PT/OT evals CT/ MRI follow up to rule out stroke - wait list for transfer and open MRI scanner EEG as outpatient Continue Lyrica 75mg TID---will increase as needed Q4 hour Neuro Obs - NO NIGHTTIME OBS if stable Prevent delirium Maintain regular sleep schedule and reduce nighttime activities such as observations (if unnecessary) Vicky Taylor N.P. December 21, 2018 22:42
[2018-12-21] MEDS: TraZODone 100mg tab ORAL SCH (22:46)
[2018-12-21] MEDS: Atorvastatin 80mg tab ORAL SCH (22:47)
--- NOTE | 2018-12-21 23:00 | NUR ---
NURSE NOTES: BLE wound dressings changed. Abdomen dressing changed.
[2018-12-22 03:34] VITALS: BP 109/81
--- NOTE | 2018-12-22 07:35 | NUR ---
HAND-OFF: Report given to Elliot HINOJOSA.
--- NOTE | 2018-12-22 07:55 | NUR ---
NURSE NOTES: Received patient on bed, awake. IV site intact and patent. Bed in low and locked position, call light in reach. No signs of respiratory distress. ROom board updated, will continue to monitor.
[2018-12-22 08:35] LABS: EOSINOPHILS % (AUTO) 2.6 % (0.0-3.0); HEMATOCRIT 45.4 % (42.0-52.0); LYMPHOCYTES % (AUTO) 34.7 % (20.0-45.0); MEAN CORPUSCULAR VOLUME 91 FL (80-99); MONOCYTES % (AUTO) 7.6 % (1.0-10.0); NEUTROPHILS % (AUTO) 54.1 % (45.0-75.0); PLATELET COUNT 217 K/UL (150-450); RED BLOOD COUNT 4.96 M/UL (4.70-6.10); RED CELL DISTRIBUTION WIDTH 13.2 % (11.6-14.8); WHITE BLOOD COUNT 5.7 K/UL (4.8-10.8)
[2018-12-22 09:10] LABS: ALANINE AMINOTRANSFERASE 42 U/L (12-78); ALBUMIN 3.1 G/DL (3.4-5.0); ALBUMIN/GLOBULIN RATIO 0.7 (1.0-2.7); ALKALINE PHOSPHATASE 167 U/L (46-116); ANION GAP 5 mmol/L (5-15); ASPARTATE AMINO TRANSFERASE 35 U/L (15-37); BILIRUBIN,TOTAL 0.5 MG/DL (0.2-1.0); BLOOD UREA NITROGEN 16 mg/dL (7-18); CALCIUM 9.2 MG/DL (8.5-10.1); CARBON DIOXIDE 34 MMOL/L (21-32); CHLORIDE 100 MMOL/L (98-107); POTASSIUM 4.2 MMOL/L (3.5-5.1); SODIUM 138 MMOL/L (136-145)
[2018-12-22] MEDS: DULoxetine 30mg cap ORAL SCH (10:04)
[2018-12-22] MEDS: Lyrica 75mg cap ORAL SCH ×3 (10:05→17:41)
[2018-12-22] MEDS: Heparin 5000 units/ml inj SUBQ SCH ×2 (10:06→22:01)
[2018-12-22] MEDS: Bactrim-DS 1 tab ORAL SCH ×2 (10:08→21:59)
--- NOTE | 2018-12-22 10:40 | NUR ---
RD ASSESSMENT & RECOMMENDATIONS SEE CARE ACTIVITY FOR COMPLETE ASSESSMENT DAILY ESTIMATED NEEDS: Needs based on obesity, pulmonary, 107kg abw 15-20 kcals/kg 7137-4652 total kcals 1-1.5 g protein/kg 107-161 g total protein 15-25ml/kcal mL/kg 4817-9518 total fluid mLs NUTRITION DIAGNOSIS: Decreased sodium and fat intake needs R/T cardiac h/o and morbid obesity as evidenced by h/o CHF, CVA, w/ BMI>50, @230% of [place] Body Weight. CURRENT DIET:Regular PO DIET RECOMMENDATIONS: REC DIET CHANGE TO -> CARDIAC ADDITIONAL RECOMMENDATIONS: * Obtain a standing weight as able or calibrated bedscale wt for accurate * Diet change to Cardiac * Pt not receptive to diet edu at this time * Monitor lytes closely while on diuretics, replete as needed
--- NOTE | 2018-12-22 11:52 | NUR ---
P.T Note: P.T evaluation completed and treatment initiated. Please refer to P.T evaluation for current functional status. Pt is alert , O x 4, pleasant and cooperative. Pt reports c/o L side body pain and weakness and pain on B lower legs. BUE/BLE ROM are WFL. MMT of LUE/LE are inconsistent i.e patient unable to fully raise LUE/LE against gravity upon commands however was fully and functionally utilize them during BED MOBILITY and TRANSFERS activities. Pt able to perform bed mobility and transfer activities with SBA x 1 and was able to ambulate within room distances with SBA X 1 while holding onto the tables , bed and wall . Pt educated and encouraged the use of FWW for gait stability and safety however patient declined. Pt will be seen for skilled P.T services to improve activity tolerance and to increase mobility independence and safety. Recommend return to prior living arrangement.
[2018-12-22 12:00] VITALS: BP 120/60
--- NOTE | 2018-12-22 12:14 | General Progress Note ---
Assessment/Plan Problem List: (1) Abdominal pannus ICD Codes: E65 - Localized adiposity SNOMED: 0725507868630 (2) Peripheral edema ICD Codes: R60.9 - Edema, unspecified SNOMED: 903221335 (3) Abdominal wall cellulitis ICD Codes: L03.311 - Cellulitis of abdominal wall SNOMED: 86716024 (4) Leg pain ICD Codes: M79.606 - Pain in leg, unspecified SNOMED: 42694748 (5) COPD (chronic obstructive pulmonary disease) ICD Codes: J44.9 - Chronic obstructive pulmonary disease, unspecified SNOMED: 55585256 (6) Seizures ICD Codes: R56.9 - Unspecified convulsions SNOMED: 24617548 (7) Morbid obesity ICD Codes: E66.01 - Morbid (severe) obesity due to excess calories SNOMED: 728328581 (8) Cerebrovascular accident ICD Codes: I63.9 - Cerebral infarction, unspecified SNOMED: 848734041 (9) Left-sided weakness ICD Codes: R53.1 - Weakness SNOMED: 501506152 Status: stable, progressing Assessment/Plan: pt diet neuro f/u wound care abx pain control cbc bmp am brotman aru eval Subjective Constitutional: Reports: weakness Allergies: Coded Allergies: ASPIRIN (Verified Allergy, Unknown, 07/14/18) KETOROLAC (Verified Allergy, Unknown, 07/14/18) PENICILLINS (Verified Allergy, Unknown, 07/14/18) Uncoded Allergies: PENICILIN (Allergy, Unknown, 12/14/18) All Systems: reviewed and negative except above Subjective calm sitting on bed Objective Last 24 Hour Vital Signs Date Time Temp Pulse Resp B/P (MAP) Pulse Ox O2 Delivery O2 Flow Rate FiO2 12/22/18 09:50 Room Air 12/22/18 08:00 97.5 83 12/22/18 07:22 98.1 12/22/18 03:34 98.1 86 20 109/81 (90) 96 12/21/18 23:52 97.2 86 20 128/83 (98) 94 12/21/18 21:00 Room Air 12/21/18 20:00 96.8 82 20 125/82 (96) 95 12/21/18 15:37 97.9 89 20 120/76 (91) 95 Intake and Output 12/21/18 12/22/18 19:00 07:00 Intake Total 1760 ml 1200 ml Balance 1760 ml 1200 ml Intake Oral 1760 ml 1200 ml # Voids 3 3 # Bowel Movements 1 Laboratory Tests 12/22/18 07:42: White Blood Count 5.7, Red Blood Count 4.96, Hemoglobin 15.0, Hematocrit 45.4, Mean Corpuscular Volume 91, Mean Corpuscular Hemoglobin 30.2, Mean Corpuscular Hemoglobin Concent 33.0, Red Cell Distribution Width 13.2, Platelet Count 217, Mean Platelet Volume 6.0L, Neutrophils (%) (Auto) 54.1, Lymphocytes (%) (Auto) 34.7, Monocytes (%) (Auto) 7.6, Eosinophils (%) (Auto) 2.6, Basophils (%) (Auto ) 1.0, Sodium Level 138, Potassium Level 4.2, Chloride Level 100, Carbon Dioxide Level 34H, Anion Gap 5, Blood Urea Nitrogen 16, Creatinine 1.0, Estimat Glomerular Filtration Rate > 60, Glucose Level 98, Calcium Level 9.2, Total Bilirubin 0.5, Aspartate Amino Transf (AST/SGOT) 35, Alanine Aminotransferase ( ALT/SGPT) 42, Alkaline Phosphatase 167H, Pro-B-Type Natriuretic Peptide 175H, Total Protein 7.3, Albumin 3.1L, Globulin 4.2, Albumin/Globulin Ratio 0.7L Height (Feet): 5 Height (Inches): 10.00 Weight (Pounds): 409 General Appearance: alert EENT: normal ENT inspection Neck: normal alignment Cardiovascular: normal peripheral pulses, normal rate, regular rhythm Respiratory/Chest: chest wall non-tender, lungs clear, normal breath sounds Abdomen: normal bowel sounds, non tender, soft, distended Extremities: normal inspection Edema: 1+ Arm (L), 1+ Arm (R), 1+ Leg (L), 1+ Leg (R), 1+ Pedal (L), 1+ Pedal ( R), 1+ Generalized Edema: mild edema Neurologic: responsive, motor weakness Skin: normal pigmentation, warm/dry CoreyErnesto Ady QUIROZ December 22, 2018 12:14
--- NOTE | 2018-12-22 12:45 | Progress Note ---
DATE: 12/22/2018 SUBJECTIVE: The patient is a 53-year-old male with cerebrovascular accident. He has high levels of anxiety, depression, mood lability, worsened by stress of his medical illness. That is why, his attending has requested daily psychiatric consultation. He has medical problems, but also high levels of anxiety and depression. MENTAL STATUS EXAMINATION: This is a 53-year-old male. Appearance is disheveled. Attitude, irritable and agitated. Affect, guarded and restricted. Intellect poor. Mood, depressed and anxious. Motor activity, psychomotor agitation. Attention span is poor. Orientation x2. Speech is low volume and slurred. Thought process, disorganized and illogical. Insight and judgment is fair. DIAGNOSIS: Major depressive disorder, mild, recurrent, rule out generalized anxiety disorder. PLAN: Cymbalta 30 mg a day, Neurontin 600 mg three times a day, and trazodone 100 at bedtime. Provide him with 20 minutes of cognitive behavioral therapy to help him identify his automatic negative thoughts, help him convert those negative thoughts to more positive thoughts to reduce depression, anxiety, and mood lability. Chart reviewed. Discussed with staff. Seen and assessed in his room. Laney Mcghee M.D. DR: GUTIERREZ JOB#: [id number] CC:
--- NOTE | 2018-12-22 13:21 | Pulmonology Progress Note ---
Assessment/Plan Problems: (1) Peripheral edema (2) Cellulitis (3) Seizures (4) Cerebrovascular accident (5) Left-sided weakness (6) COPD (chronic obstructive pulmonary disease) (7) Right heart failure (8) Lumbar spondylosis (9) ADALBERTO (obstructive sleep apnea) (10) Morbid obesity Assessment/Plan pt wants a PICC line all meds /notes reviewed\ start on laxis and bactrim Ds plastic surgery contacted, will do the procedure after clearance by cardio. I cleared him as pulmonary. pt/ot respiratory treatment titrate fio2 to sat of 92% dvt prophylaxis Subjective ROS Limited/Unobtainable: No Constitutional: Reports: no symptoms HEENT: Repors: no symptoms Respiratory: Reports: no symptoms Allergies: Coded Allergies: ASPIRIN (Verified Allergy, Unknown, 07/14/18) KETOROLAC (Verified Allergy, Unknown, 07/14/18) PENICILLINS (Verified Allergy, Unknown, 07/14/18) Uncoded Allergies: PENICILIN (Allergy, Unknown, 12/14/18) Objective Last 24 Hour Vital Signs Date Time Temp Pulse Resp B/P (MAP) Pulse Ox O2 Delivery O2 Flow Rate FiO2 12/22/18 12:00 97.6 85 16 120/60 (80) 94 12/22/18 09:50 Room Air 12/22/18 08:00 97.5 83 12/22/18 07:22 98.1 12/22/18 03:34 98.1 86 20 109/81 (90) 96 12/21/18 23:52 97.2 86 20 128/83 (98) 94 12/21/18 21:00 Room Air 12/21/18 20:00 96.8 82 20 125/82 (96) 95 12/21/18 15:37 97.9 89 20 120/76 (91) 95 Intake and Output 12/21/18 12/22/18 19:00 07:00 Intake Total 1760 ml 1200 ml Balance 1760 ml 1200 ml Intake Oral 1760 ml 1200 ml # Voids 3 3 # Bowel Movements 1 Objective HEENT: normocephalic, atraumatic Respiratory/Chest: chest wall non-tender, lungs clear Cardiovascular: normal peripheral pulses, normal rate Abdomen: normal bowel sounds, no organomegaly, massive fat on abdomen Extremities: no cyanosis Skin: no lesions Laboratory Tests 12/22/18 07:42: White Blood Count 5.7, Red Blood Count 4.96, Hemoglobin 15.0, Hematocrit 45.4, Mean Corpuscular Volume 91, Mean Corpuscular Hemoglobin 30.2, Mean Corpuscular Hemoglobin Concent 33.0, Red Cell Distribution Width 13.2, Platelet Count 217, Mean Platelet Volume 6.0L, Neutrophils (%) (Auto) 54.1, Lymphocytes (%) (Auto) 34.7, Monocytes (%) (Auto) 7.6, Eosinophils (%) (Auto) 2.6, Basophils (%) (Auto ) 1.0, Sodium Level 138, Potassium Level 4.2, Chloride Level 100, Carbon Dioxide Level 34H, Anion Gap 5, Blood Urea Nitrogen 16, Creatinine 1.0, Estimat Glomerular Filtration Rate > 60, Glucose Level 98, Calcium Level 9.2, Total Bilirubin 0.5, Aspartate Amino Transf (AST/SGOT) 35, Alanine Aminotransferase ( ALT/SGPT) 42, Alkaline Phosphatase 167H, Pro-B-Type Natriuretic Peptide 175H, Total Protein 7.3, Albumin 3.1L, Globulin 4.2, Albumin/Globulin Ratio 0.7L Current Medications Medications (Trade) Dose Ordered Sig/Luis Route PRN Reason Start Time Stop Time Status Last Admin Dose Admin Acetaminophen (Tylenol) 650 mg Q4H PRN ORAL fever 12/15/18 14:54 01/14/19 14:53 Atorvastatin Calcium (Lipitor) 80 mg BEDTIME ORAL 12/15/18 21:00 01/14/19 20:59 12/21/18 22:47 Clonidine HCl (Catapres Tab) 0.1 mg Q4H PRN ORAL For High Blood Pressure 12/15/18 14:56 01/14/19 14:55 Clopidogrel Bisulfate (Plavix) 75 mg DAILY ORAL 12/16/18 09:00 01/14/19 08:59 12/22/18 10:04 Dextrose (Dextrose 50%) 25 ml Q30M PRN IV Hypoglycemia 12/15/18 15:15 01/13/19 23:44 Dextrose (Dextrose 50%) 50 ml Q30M PRN IV Hypoglycemia 12/15/18 15:15 01/13/19 23:44 Duloxetine HCl (Cymbalta) 30 mg DAILY ORAL 12/16/18 09:00 01/14/19 08:59 12/22/18 10:04 Furosemide (Lasix) 20 mg ONCE IV 12/21/18 17:00 01/20/19 16:59 12/21/18 17:08 Furosemide (Lasix) 20 mg Q6HR IV 12/22/18 00:00 01/21/19 00:00 12/22/18 13:17 Gabapentin (Neurontin) 600 mg THREE TIMES A DAY ORAL 12/15/18 18:00 01/14/19 08:59 12/22/18 13:17 Heparin Sodium (Porcine) (Heparin 5000 units/ml) 5,000 units EVERY 12 HOURS SUBQ 12/15/18 21:00 01/14/19 08:59 12/22/18 10:06 Hydromorphone HCl (Dilaudid) 3 mg Q4H PRN IVP Severe Pain (Pain Scale 7-10) 12/19/18 16:15 12/26/18 16:14 12/22/18 10:59 Levetiracetam (Keppra) 1,000 mg Q12HR ORAL 12/19/18 09:00 01/18/19 08:59 12/22/18 10:08 Lorazepam (Ativan 2mg/ml 1ml) 0.5 mg Q4H PRN IV For Anxiety 12/15/18 14:55 12/22/18 14:54 Lorazepam (Ativan 2mg/ml 1ml) 1 mg Q4H PRN IVP For Seizures 12/15/18 18:30 12/22/18 18:29 12/15/18 18:32 Nitroglycerin (Ntg) 0.4 mg Q5M X 3 DOSES PRN SL Prn Chest Pain 12/15/18 14:45 01/13/19 23:44 Ondansetron HCl (Zofran) 4 mg Q6H PRN IVP Nausea & Vomiting 12/15/18 14:55 01/14/19 14:54 12/17/18 10:19 Polyethylene Glycol (Miralax) 17 gm HSPRN PRN ORAL Constipation 12/15/18 14:55 01/14/19 14:54 Pregabalin (Lyrica) 75 mg THREE TIMES A DAY ORAL 12/22/18 09:00 01/19/19 22:59 12/22/18 13:17 Promethazine HCl/ Codeine (Phenergan with Codeine) 5 ml Q4H PRN ORAL For Cough 12/15/18 14:55 01/14/19 14:54 Temazepam (Restoril) 15 mg HSPRN PRN ORAL Insomnia 12/15/18 14:55 12/22/18 14:54 Trazodone HCl (Desyrel) 100 mg BEDTIME ORAL 12/15/18 21:00 01/14/19 20:59 12/21/18 22:46 Trimethoprim/ Sulfamethoxazole (Bactrim-DS) 1 tab TWICE A DAY ORAL 12/21/18 18:00 12/28/18 17:59 12/22/18 10:08 Bill Dixon MD December 22, 2018 13:21
[2018-12-22] MEDS ORDERED: Lidocaine 1% Plain 30 ml INJ PRN (13:30)
[2018-12-22] MEDS ORDERED: Heparin1,000 units/500ml Premix(Conc:2 units/ml) IV PRN (13:30)
--- NOTE | 2018-12-22 13:47 | Infectious Diseases Prog Note ---
Assessment/Plan Assessment/Plan Assessment: L side weakness/spasticity- thought be 2ry to seizures- r/O CVA- no active infectious process at present (pt afebrile- doubt meningitis at this moment) Afebrile No leukocytosis -CXR: No acute findings CVA HTN bipolar disorder w/ psychotic features tobacco abuse anxiety disorder chronic pain CHF seizure disorder COPD morbid obesity Dm2 HTN SNF resident Plan: -Noted started on Bactrim #2 -f/u cx -Monitor CBC/CMP, temperatures -neuro f/u- plan for CT head, include neck as lump in back of neck; however pt did not fit on CT scan machine due to weight -aspiration precautions Subjective Allergies: Coded Allergies: ASPIRIN (Verified Allergy, Unknown, 07/14/18) KETOROLAC (Verified Allergy, Unknown, 07/14/18) PENICILLINS (Verified Allergy, Unknown, 07/14/18) Uncoded Allergies: PENICILIN (Allergy, Unknown, 12/14/18) Subjective patient unable to fit on CT scan due to weight afebrile no leukocytosis Objective Vital Signs Last 24 Hour Vital Signs Date Time Temp Pulse Resp B/P (MAP) Pulse Ox O2 Delivery O2 Flow Rate FiO2 12/22/18 12:00 97.6 85 16 120/60 (80) 94 12/22/18 09:50 Room Air 12/22/18 08:00 97.5 83 12/22/18 07:22 98.1 12/22/18 03:34 98.1 86 20 109/81 (90) 96 12/21/18 23:52 97.2 86 20 128/83 (98) 94 12/21/18 21:00 Room Air 12/21/18 20:00 96.8 82 20 125/82 (96) 95 12/21/18 15:37 97.9 89 20 120/76 (91) 95 Height (Feet): 5 Height (Inches): 10.00 Weight (Pounds): 409 Objective GENERAL: Calm in bed, oriented x3, in slight distress, secondary to weakness. CARDIOVASCULAR: No murmurs. LUNGS: Poor air exchange. ABDOMEN: Bowel sounds distant. EXTREMITIES: Show no cyanosis or clubbing. A 1+ edema in bilateral lower extremity. Large pannus noted in the abdomen area. NEUROLOGIC: The patient moves all extremities, slightly weak. Laboratory Tests Test 12/22/18 07:42 White Blood Count 5.7 K/UL (4.8-10.8) Red Blood Count 4.96 M/UL (4.70-6.10) Hemoglobin 15.0 G/DL (14.2-18.0) Hematocrit 45.4 % (42.0-52.0) Mean Corpuscular Volume 91 FL (80-99) Mean Corpuscular Hemoglobin 30.2 PG (27.0-31.0) Mean Corpuscular Hemoglobin Concent 33.0 G/DL (32.0-36.0) Red Cell Distribution Width 13.2 % (11.6-14.8) Platelet Count 217 K/UL (150-450) Mean Platelet Volume 6.0 FL (6.5-10.1) L Neutrophils (%) (Auto) 54.1 % (45.0-75.0) Lymphocytes (%) (Auto) 34.7 % (20.0-45.0) Monocytes (%) (Auto) 7.6 % (1.0-10.0) Eosinophils (%) (Auto) 2.6 % (0.0-3.0) Basophils (%) (Auto) 1.0 % (0.0-2.0) Sodium Level 138 MMOL/L (136-145) Potassium Level 4.2 MMOL/L (3.5-5.1) Chloride Level 100 MMOL/L (98-107) Carbon Dioxide Level 34 MMOL/L (21-32) H Anion Gap 5 mmol/L (5-15) Blood Urea Nitrogen 16 mg/dL (7-18) Creatinine 1.0 MG/DL (0.55-1.30) Estimat Glomerular Filtration Rate > 60 mL/min (>60) Glucose Level 98 MG/DL (74-106) Calcium Level 9.2 MG/DL (8.5-10.1) Total Bilirubin 0.5 MG/DL (0.2-1.0) Aspartate Amino Transf (AST/SGOT) 35 U/L (15-37) Alanine Aminotransferase (ALT/SGPT) 42 U/L (12-78) Alkaline Phosphatase 167 U/L (46-116) H Pro-B-Type Natriuretic Peptide 175 pg/mL (0-125) H Total Protein 7.3 G/DL (6.4-8.2) Albumin 3.1 G/DL (3.4-5.0) L Globulin 4.2 g/dL Albumin/Globulin Ratio 0.7 (1.0-2.7) L Current Medications Medications (Trade) Dose Ordered Sig/Luis Route PRN Reason Start Time Stop Time Status Last Admin Dose Admin Acetaminophen (Tylenol) 650 mg Q4H PRN ORAL fever 12/15/18 14:54 01/14/19 14:53 Atorvastatin Calcium (Lipitor) 80 mg BEDTIME ORAL 12/15/18 21:00 01/14/19 20:59 12/21/18 22:47 Chlorhexidine Gluconate (Ruby-Hex 2%) 1 applic DAILY@1999 TOPIC 12/22/18 20:00 01/21/19 19:59 Clonidine HCl (Catapres Tab) 0.1 mg Q4H PRN ORAL For High Blood Pressure 12/15/18 14:56 01/14/19 14:55 Clopidogrel Bisulfate (Plavix) 75 mg DAILY ORAL 12/16/18 09:00 01/14/19 08:59 12/22/18 10:04 Dextrose (Dextrose 50%) 25 ml Q30M PRN IV Hypoglycemia 12/15/18 15:15 01/13/19 23:44 Dextrose (Dextrose 50%) 50 ml Q30M PRN IV Hypoglycemia 12/15/18 15:15 01/13/19 23:44 Duloxetine HCl (Cymbalta) 30 mg DAILY ORAL 12/16/18 09:00 01/14/19 08:59 12/22/18 10:04 Furosemide (Lasix) 20 mg ONCE IV 12/21/18 17:00 01/20/19 16:59 12/21/18 17:08 Furosemide (Lasix) 20 mg Q6HR IV 12/22/18 00:00 01/21/19 00:00 12/22/18 13:17 Gabapentin (Neurontin) 600 mg THREE TIMES A DAY ORAL 12/15/18 18:00 01/14/19 08:59 12/22/18 13:17 Heparin Sodium (Porcine) (Heparin 5000 units/ml) 5,000 units EVERY 12 HOURS SUBQ 12/15/18 21:00 01/14/19 08:59 12/22/18 10:06 Heparin Sodium/ Sodium Chloride (Heparin 1000 units/500ml Premix) 1,000 unit ONCE PRN IV picc line placement 12/22/18 13:30 12/23/18 13:29 Hydromorphone HCl (Dilaudid) 3 mg Q4H PRN IVP Severe Pain (Pain Scale 7-10) 12/19/18 16:15 12/26/18 16:14 12/22/18 10:59 Levetiracetam (Keppra) 1,000 mg Q12HR ORAL 12/19/18 09:00 01/18/19 08:59 12/22/18 10:08 Lidocaine HCl (Xylocaine 1% 30ml) 30 ml ONCE PRN INJ picc line placement 12/22/18 13:30 12/23/18 13:29 Lorazepam (Ativan 2mg/ml 1ml) 0.5 mg Q4H PRN IV For Anxiety 12/15/18 14:55 12/22/18 14:54 Lorazepam (Ativan 2mg/ml 1ml) 1 mg Q4H PRN IVP For Seizures 12/15/18 18:30 12/22/18 18:29 12/15/18 18:32 Nitroglycerin (Ntg) 0.4 mg Q5M X 3 DOSES PRN SL Prn Chest Pain 12/15/18 14:45 01/13/19 23:44 Ondansetron HCl (Zofran) 4 mg Q6H PRN IVP Nausea & Vomiting 12/15/18 14:55 01/14/19 14:54 12/17/18 10:19 Polyethylene Glycol (Miralax) 17 gm HSPRN PRN ORAL Constipation 12/15/18 14:55 01/14/19 14:54 Pregabalin (Lyrica) 75 mg THREE TIMES A DAY ORAL 12/22/18 09:00 01/19/19 22:59 12/22/18 13:17 Promethazine HCl/ Codeine (Phenergan with Codeine) 5 ml Q4H PRN ORAL For Cough 12/15/18 14:55 01/14/19 14:54 Temazepam (Restoril) 15 mg HSPRN PRN ORAL Insomnia 12/15/18 14:55 12/22/18 14:54 Trazodone HCl (Desyrel) 100 mg BEDTIME ORAL 12/15/18 21:00 01/14/19 20:59 12/21/18 22:46 Trimethoprim/ Sulfamethoxazole (Bactrim-DS) 1 tab TWICE A DAY ORAL 12/21/18 18:00 12/28/18 17:59 12/22/18 10:08 Alexa Patterson M.D. December 22, 2018 13:47
[2018-12-22 16:00] VITALS: BP 100/70
--- NOTE | 2018-12-22 16:27 | General Progress Note ---
Assessment/Plan Status: stable, progressing Assessment/Plan: (1) Lumbar DDD (2) Lumbar Spondylosis (3) Lumbar Radiculopathy (4) Morbid Obesity (5) Right knee pain (6) Right knee OA h/o ORIF We will continue patient on Dilaudid as needed. D/w Dr. Magaña and he concurred. Subjective Date patient seen: December 22, 2018 Time patient seen: 03:30 - pm Allergies: Coded Allergies: ASPIRIN (Verified Allergy, Unknown, 07/14/18) KETOROLAC (Verified Allergy, Unknown, 07/14/18) PENICILLINS (Verified Allergy, Unknown, 07/14/18) Uncoded Allergies: PENICILIN (Allergy, Unknown, 12/14/18) Subjective REVIEW OF SYSTEMS: Denies rash, fever, chills, sweating, dizziness, drowsiness, blurred vision, sore throat, change in weight. No nausea, vomiting, diarrhea, or blood in the stool or urine. No bowel or bladder incontinence. No dysuria. He is complaining of low back pain SUBJECTIVE: Patient laying in bed continues to c/o pain which has been tolerated on the Dilaudid. Showing no signs of pain or distress at this time. Objective Last 24 Hour Vital Signs Date Time Temp Pulse Resp B/P (MAP) Pulse Ox O2 Delivery O2 Flow Rate FiO2 12/22/18 12:00 97.6 85 16 120/60 (80) 94 12/22/18 09:50 Room Air 12/22/18 08:00 97.5 83 12/22/18 07:22 98.1 12/22/18 03:34 98.1 86 20 109/81 (90) 96 12/21/18 23:52 97.2 86 20 128/83 (98) 94 12/21/18 21:00 Room Air 12/21/18 20:00 96.8 82 20 125/82 (96) 95 Intake and Output 12/21/18 12/22/18 18:59 06:59 Intake Total 1760 ml 1200 ml Balance 1760 ml 1200 ml Intake Oral 1760 ml 1200 ml # Voids 3 3 # Bowel Movements 1 Laboratory Tests 12/22/18 07:42: White Blood Count 5.7, Red Blood Count 4.96, Hemoglobin 15.0, Hematocrit 45.4, Mean Corpuscular Volume 91, Mean Corpuscular Hemoglobin 30.2, Mean Corpuscular Hemoglobin Concent 33.0, Red Cell Distribution Width 13.2, Platelet Count 217, Mean Platelet Volume 6.0L, Neutrophils (%) (Auto) 54.1, Lymphocytes (%) (Auto) 34.7, Monocytes (%) (Auto) 7.6, Eosinophils (%) (Auto) 2.6, Basophils (%) (Auto ) 1.0, Sodium Level 138, Potassium Level 4.2, Chloride Level 100, Carbon Dioxide Level 34H, Anion Gap 5, Blood Urea Nitrogen 16, Creatinine 1.0, Estimat Glomerular Filtration Rate > 60, Glucose Level 98, Calcium Level 9.2, Total Bilirubin 0.5, Aspartate Amino Transf (AST/SGOT) 35, Alanine Aminotransferase ( ALT/SGPT) 42, Alkaline Phosphatase 167H, Pro-B-Type Natriuretic Peptide 175H, Total Protein 7.3, Albumin 3.1L, Globulin 4.2, Albumin/Globulin Ratio 0.7L Height (Feet): 5 Height (Inches): 10.00 Weight (Pounds): 409 Objective GENERAL: Alert, awake, and oriented x3. LUNGS: Decreased breath sounds bilaterally. HEART: S1 and S2, regular. ABDOMEN: Obese. EXTREMITIES: No cyanosis. No clubbing. No edema. NEURO: No changes. Eliezer Nicole December 22, 2018 16:27
--- NOTE | 2018-12-22 16:36 | NUR ---
[employer] SI:CVA . LEFT-SIDED WEAKNESS . ABDOMINAL WALL CELLULITIS VS: BP 109/81, P 83, T 97.2, RR 20, SpO2 94 IS:DILAUDID 3mg GABAPENTIN 600mG LASIX 20mg LYRICA 75mg KEPPRA 1,000mg BACTRIM-DS 1tab PLAVIX 75mg CYMBALTA 30mg WAITING FOR [facility] TO REVIEW REFERRAL MED/SURG STATUS
--- NOTE | 2018-12-22 17:28 | Neurology Progress Note ---
Interim History Interim History ROS Limited/Unobtainable: No Complaints: Left sided weakness/ spasticity Events: ARM WEAKNESS RESOLVED, HAND Weakness slowly improving Interim History This visit was performed on December 22, [address] Amador Brewster. Objective Physical Exam Last Vital Signs Date Time Temp Pulse Resp B/P (MAP) Pulse Ox O2 Delivery O2 Flow Rate FiO2 12/22/18 16:00 97.9 92 19 100/70 (80) 97 12/22/18 09:50 Room Air 12/20/18 20:42 21 Laboratory Tests Test 12/22/18 07:42 White Blood Count 5.7 K/UL (4.8-10.8) Red Blood Count 4.96 M/UL (4.70-6.10) Hemoglobin 15.0 G/DL (14.2-18.0) Hematocrit 45.4 % (42.0-52.0) Mean Corpuscular Volume 91 FL (80-99) Mean Corpuscular Hemoglobin 30.2 PG (27.0-31.0) Mean Corpuscular Hemoglobin Concent 33.0 G/DL (32.0-36.0) Red Cell Distribution Width 13.2 % (11.6-14.8) Platelet Count 217 K/UL (150-450) Mean Platelet Volume 6.0 FL (6.5-10.1) L Neutrophils (%) (Auto) 54.1 % (45.0-75.0) Lymphocytes (%) (Auto) 34.7 % (20.0-45.0) Monocytes (%) (Auto) 7.6 % (1.0-10.0) Eosinophils (%) (Auto) 2.6 % (0.0-3.0) Basophils (%) (Auto) 1.0 % (0.0-2.0) Sodium Level 138 MMOL/L (136-145) Potassium Level 4.2 MMOL/L (3.5-5.1) Chloride Level 100 MMOL/L (98-107) Carbon Dioxide Level 34 MMOL/L (21-32) H Anion Gap 5 mmol/L (5-15) Blood Urea Nitrogen 16 mg/dL (7-18) Creatinine 1.0 MG/DL (0.55-1.30) Estimat Glomerular Filtration Rate > 60 mL/min (>60) Glucose Level 98 MG/DL (74-106) Calcium Level 9.2 MG/DL (8.5-10.1) Total Bilirubin 0.5 MG/DL (0.2-1.0) Aspartate Amino Transf (AST/SGOT) 35 U/L (15-37) Alanine Aminotransferase (ALT/SGPT) 42 U/L (12-78) Alkaline Phosphatase 167 U/L (46-116) H Pro-B-Type Natriuretic Peptide 175 pg/mL (0-125) H Total Protein 7.3 G/DL (6.4-8.2) Albumin 3.1 G/DL (3.4-5.0) L Globulin 4.2 g/dL Albumin/Globulin Ratio 0.7 (1.0-2.7) L General: well developed, well nourished, other - Morbidly obese Head: normocophalic Neck: no rigidity EENT: benign Neurologic Exam Mental Status: awake, alert, oriented x4, normal cognition, good mathematical skills, normal recent memory, normal remote memory, preserved visuospatial function Speech: normal speech, no dysarthia Language: normal language, no aphasia Cranial Nerve II: fundus normal, visual bonilla, no papilledema Cranial Nerves III, IV, : PERRLA, EOMI, pupils Cranial Nerve V: normal facial sensations, temporales function normal, masseters function normal, pterygoids function normal Cranial Nerve VII: normal facial expressions, other Cranial Nerve VIII: normal hearing, no nystagmus Cranial Nerve IX: normal palate elevation, gag response Cranial Nerve X: no voice hoarseness Cranial Nerve XI: SCM symmetric, trapezii function normal Cranial Nerve XII: tongue midline, no tongue atrophy/fasciculations Motor System: normal muscle tone, no involuntary movement, no muscle wasting Sensory: normal pinprick, normal light touch, normal position sense, normal graphesthesia Coordination: negative Romberg test Deep Tendon Reflexes: 1+ bicep (L), 1+ bicep (R), 1+ tricep (L), 1+ tricep (R) , 1+ brachioradialis (L), 1+ brachioradialis (R), 1+ knee (L), 1+ knee (R), 1+ ankle (L), 1+ ankle (R) Reflexes: flexor plantar (L), flexor plantar (R); extensor plantar (L), extensor plantar (R) Stance: other - Broad based Objective Left arm, predominantly hand weakness at this time. Alert and oriented, intermittently agitated / irritable Ambulatory with cellulitis persisting on RLE He does not have proximal left arm weakness at this time or facial weakness, tongue deviated on exam . Impression/Recommendations Problems: (1) Seizures Assessment & Plan: Keppra 1000mg BID PO Maintain SBP<140 Q4 Hour Neuro Checks Ativan 2mg PRN for seizure activity CT Head w/o contrast when able to rule out CVA - also for consideration of MRI if CT negative. - low suspicion of CVA due to normotensive status without risk factors of elevated BP/ HgBA1c or thyroid dysfunction. Na 135-145 Continue pain management - Lyrica 50mg TID - May increase to 75mg TID as needed Continue Gabapentin 600mg TID (2) Morbid obesity (3) COPD (chronic obstructive pulmonary disease) (4) Uncontrolled seizures (5) Left-sided weakness (6) Knee osteomyelits, right Status: stable, progressing, tolerating diet, ambulating well Recommendations Continue neuroleptic meds as per psychiatry Some increased agitation - consider additiona 25mg Seroquel PRN for agitation Maintain SBP<140 PT/OT evals CT/ MRI follow up to rule out stroke - wait list for transfer and open MRI scanner EEG as outpatient Continue Lyrica 75mg TID---will increase as needed Q4 hour Neuro Obs - NO NIGHTTIME OBS if stable Prevent delirium Maintain regular sleep schedule and reduce nighttime activities such as observations (if unnecessary) Check LFTS prior to D/C and encourage follow up if they remain elevated .May need to revise Vicky Fonseca N.P. December 22, 2018 17:28
--- NOTE | 2018-12-22 19:26 | NUR ---
HAND-OFF: Report given to RN Kirsty.
--- NOTE | 2018-12-22 19:27 | NUR ---
NURSE NOTES: RECEIVED PT FROM MICAELA BRISCOE. PT IS AWAKE, DENIES PAIN AT THE MOMENT. ON ROOM AIR, NO ACUTE DISTRESS NOTED. L AV 22G IS INTACT AND PATENT. DRESSING ON BILATERAL LEGS ARE DRY AND INTACT. PT REPORTED CHANGING DRESSING HIMSELF. BED IS AT THE LOWEST POSITION, BED ALARMS ACTIVE, SIDE RAILS UP X2, AND CALL LIGHT IS WITHIN REACH. WILL CONTINUE TO MONITOR.
--- NOTE | 2018-12-22 19:45 | Cardiology Progress Note ---
Assessment/Plan Assessment/Plan 1. Morbid obesity with pannus formation, 2D echo from Jun 2018 has revealed normal LV systolic and diastolic function. He is clear for intermediate risk "removal of pannus", with the risk of coronary artery events perioperatively estimated to be less than 1%. 2. Chronic venous insufficiency. 3. Hx of HTN, diet controlled. 4. COPD Subjective Subjective No cardiac events noted. Objective Last 24 Hour Vital Signs Date Time Temp Pulse Resp B/P (MAP) Pulse Ox O2 Delivery O2 Flow Rate FiO2 12/22/18 16:00 97.9 92 19 100/70 (80) 97 12/22/18 12:00 97.6 85 16 120/60 (80) 94 12/22/18 09:50 Room Air 12/22/18 08:00 97.5 83 12/22/18 07:22 98.1 12/22/18 03:34 98.1 86 20 109/81 (90) 96 12/21/18 23:52 97.2 86 20 128/83 (98) 94 12/21/18 21:00 Room Air 12/21/18 20:00 96.8 82 20 125/82 (96) 95 Intake and Output 12/21/18 12/22/18 18:59 06:59 Intake Total 1760 ml 1200 ml Balance 1760 ml 1200 ml Intake Oral 1760 ml 1200 ml # Voids 3 3 # Bowel Movements 1 2D Echo: Normal LV systolic function, RVSP 34 mmHg, RAP elevated at 15 mmHg Laboratory Tests Test 12/22/18 07:42 White Blood Count 5.7 K/UL (4.8-10.8) Red Blood Count 4.96 M/UL (4.70-6.10) Hemoglobin 15.0 G/DL (14.2-18.0) Hematocrit 45.4 % (42.0-52.0) Mean Corpuscular Volume 91 FL (80-99) Mean Corpuscular Hemoglobin 30.2 PG (27.0-31.0) Mean Corpuscular Hemoglobin Concent 33.0 G/DL (32.0-36.0) Red Cell Distribution Width 13.2 % (11.6-14.8) Platelet Count 217 K/UL (150-450) Mean Platelet Volume 6.0 FL (6.5-10.1) L Neutrophils (%) (Auto) 54.1 % (45.0-75.0) Lymphocytes (%) (Auto) 34.7 % (20.0-45.0) Monocytes (%) (Auto) 7.6 % (1.0-10.0) Eosinophils (%) (Auto) 2.6 % (0.0-3.0) Basophils (%) (Auto) 1.0 % (0.0-2.0) Sodium Level 138 MMOL/L (136-145) Potassium Level 4.2 MMOL/L (3.5-5.1) Chloride Level 100 MMOL/L (98-107) Carbon Dioxide Level 34 MMOL/L (21-32) H Anion Gap 5 mmol/L (5-15) Blood Urea Nitrogen 16 mg/dL (7-18) Creatinine 1.0 MG/DL (0.55-1.30) Estimat Glomerular Filtration Rate > 60 mL/min (>60) Glucose Level 98 MG/DL (74-106) Calcium Level 9.2 MG/DL (8.5-10.1) Total Bilirubin 0.5 MG/DL (0.2-1.0) Aspartate Amino Transf (AST/SGOT) 35 U/L (15-37) Alanine Aminotransferase (ALT/SGPT) 42 U/L (12-78) Alkaline Phosphatase 167 U/L (46-116) H Pro-B-Type Natriuretic Peptide 175 pg/mL (0-125) H Total Protein 7.3 G/DL (6.4-8.2) Albumin 3.1 G/DL (3.4-5.0) L Globulin 4.2 g/dL Albumin/Globulin Ratio 0.7 (1.0-2.7) L Objective HEENT: Atraumatic and normocephalic. Anicteric. Pupils are equal, round, and reactive to light and accommodation. NECK: JVP cannot be assessed due to obesity. No carotid bruit. CARDIOVASCULAR: Normal S1, S2. Regular rate and rhythm. No murmurs, gallops, or rubs. PMI is at fourth intercostal space at the midclavicular line. LUNGS: Clear to auscultation bilaterally. ABDOMEN: Distended due to pannus formation, cannot palpate hepatosplenomegaly. Positive bowel sounds. EXTREMITIES: No lower extremity edema, clubbing or cyanosis. EliezerCarlos MD December 22, 2018 19:45
[2018-12-22 20:00] VITALS: BP 104/61
[2018-12-22] MEDS: Dyna-Hex 2% Top Sol 2oz TOPIC SCH (21:58)
[2018-12-22] MEDS: Atorvastatin 80mg tab ORAL SCH (21:59)
[2018-12-22] MEDS: TraZODone 100mg tab ORAL SCH (21:59)
[2018-12-23] VITALS: BP_SYST 104; BP_SYST 106; BP_DIAS 55; BP_DIAS 61
--- NOTE | 2018-12-23 01:50 | NUR ---
NURSE NOTES: INSERTED NEW IV ON R H 22G. INTACT AND PATENT.
[2018-12-23 04:00] VITALS: BP 107/71
--- NOTE | 2018-12-23 07:00 | NUR ---
NURSE NOTES: CHANGED DRESSINGS ON BILATERAL LEGS AND ABDOMEN.
[2018-12-23 07:35] LABS: ANION GAP 3 mmol/L (5-15); BLOOD UREA NITROGEN 17 mg/dL (7-18); CARBON DIOXIDE 37 MMOL/L (21-32); CHLORIDE 99 MMOL/L (98-107); CREATININE 1.3 MG/DL (0.55-1.30); POTASSIUM 4.2 MMOL/L (3.5-5.1); SODIUM 139 MMOL/L (136-145)
[2018-12-23 07:39] LABS: BASOPHILS % (AUTO) 1.1 % (0.0-2.0); EOSINOPHILS % (AUTO) 1.9 % (0.0-3.0); HEMATOCRIT 43.2 % (42.0-52.0); HEMOGLOBIN 14.8 G/DL (14.2-18.0); LYMPHOCYTES % (AUTO) 37.6 % (20.0-45.0); MEAN CORPUSCULAR VOLUME 89 FL (80-99); NEUTROPHILS % (AUTO) 51.4 % (45.0-75.0); PLATELET COUNT 206 K/UL (150-450); RED BLOOD COUNT 4.85 M/UL (4.70-6.10); RED CELL DISTRIBUTION WIDTH 13.1 % (11.6-14.8); WHITE BLOOD COUNT 5.4 K/UL (4.8-10.8)
--- NOTE | 2018-12-23 07:55 | NUR ---
NURSE NOTES: Received patient on bed, awake. IV site intact and patent. Bed in low and locked position, call light in reach. Room board updated, will continue to monitor.
[2018-12-23 08:00] VITALS: BP 109/74
--- NOTE | 2018-12-23 08:02 | NUR ---
HAND-OFF: Report given to MICAELA BRISCOE.
[2018-12-23] MEDS: Lyrica 75mg cap ORAL SCH ×3 (08:34→18:36)
[2018-12-23] MEDS: Bactrim-DS 1 tab ORAL SCH ×2 (08:34→21:27)
[2018-12-23] MEDS: DULoxetine 30mg cap ORAL SCH (08:34)
[2018-12-23] MEDS: Heparin 5000 units/ml inj SUBQ SCH ×2 (08:35→21:31)
--- NOTE | 2018-12-23 08:42 | General Progress Note ---
Assessment/Plan Status: stable, progressing, tolerating diet, ambulating well Assessment/Plan: (1) Lumbar DDD (2) Lumbar Spondylosis (3) Lumbar Radiculopathy (4) Morbid Obesity (5) Right knee pain (6) Right knee OA h/o ORIF We will continue patient on Dilaudid as needed. D/w Dr. Magaña and he concurred. Subjective Date patient seen: December 23, 2018 Time patient seen: 07:15 - am Allergies: Coded Allergies: ASPIRIN (Verified Allergy, Unknown, 07/14/18) KETOROLAC (Verified Allergy, Unknown, 07/14/18) PENICILLINS (Verified Allergy, Unknown, 07/14/18) Uncoded Allergies: PENICILIN (Allergy, Unknown, 12/14/18) Subjective REVIEW OF SYSTEMS: Denies rash, fever, chills, sweating, dizziness, drowsiness, blurred vision, sore throat, change in weight. No nausea, vomiting, diarrhea, or blood in the stool or urine. No bowel or bladder incontinence. No dysuria. He is complaining of low back pain SUBJECTIVE: Patient continues to c/o pain which he says is severe at times. The pain has been tolerated on the Dilaudid. He has no new complaints at this time. Objective Last 24 Hour Vital Signs Date Time Temp Pulse Resp B/P (MAP) Pulse Ox O2 Delivery O2 Flow Rate FiO2 12/23/18 08:00 98.2 85 21 109/74 (86) 99 12/23/18 04:00 98.2 82 18 107/71 (83) 96 12/23/18 00:00 98.2 82 18 106/55 (72) 99 12/22/18 21:00 Room Air 12/22/18 20:00 98.1 83 20 104/61 (75) 92 12/22/18 16:00 97.9 92 19 100/70 (80) 97 12/22/18 12:00 97.6 85 16 120/60 (80) 94 12/22/18 09:50 Room Air Intake and Output 12/22/18 12/23/18 19:00 07:00 Intake Total 1200 ml Output Total 400 ml Balance 1200 ml -400 ml Intake Oral 1200 ml Output Urine Total 400 ml # Voids 5 Laboratory Tests 12/23/18 06:45: White Blood Count 5.4, Red Blood Count 4.85, Hemoglobin 14.8, Hematocrit 43.2, Mean Corpuscular Volume 89, Mean Corpuscular Hemoglobin 30.6, Mean Corpuscular Hemoglobin Concent 34.3, Red Cell Distribution Width 13.1, Platelet Count 206, Mean Platelet Volume 6.1L, Neutrophils (%) (Auto) 51.4, Lymphocytes (%) (Auto) 37.6, Monocytes (%) (Auto) 8.0, Eosinophils (%) (Auto) 1.9, Basophils (%) (Auto ) 1.1, Sodium Level 139, Potassium Level 4.2, Chloride Level 99, Carbon Dioxide Level 37H, Anion Gap 3L, Blood Urea Nitrogen 17, Creatinine 1.3, Estimat Glomerular Filtration Rate 57.3, Glucose Level 92, Calcium Level 9.0 Height (Feet): 5 Height (Inches): 10.00 Weight (Pounds): 489 Objective GENERAL: Alert, awake, and oriented x3. LUNGS: Decreased breath sounds bilaterally. HEART: S1 and S2, regular. ABDOMEN: Obese. EXTREMITIES: No cyanosis. No clubbing. No edema. NEURO: No changes. Eliezer Nicole December 23, 2018 08:42
--- NOTE | 2018-12-23 09:08 | NUR ---
[employer] CONSULTANT NOTES SPOKE WITH BAHNU AT [facility]. THEY ARE UNABLE TO ACCOMMODATE PATIENT AT THIS TIME GIVING HIS INSURANCE IS NOT ACCEPTED THERE.
[2018-12-23 12:00] VITALS: BP 121/77
--- NOTE | 2018-12-23 12:05 | Pulmonology Progress Note ---
Assessment/Plan Problems: (1) Morbid obesity (2) Peripheral edema (3) Cellulitis (4) Seizures (5) Cerebrovascular accident (6) Left-sided weakness (7) COPD (chronic obstructive pulmonary disease) (8) Right heart failure (9) Lumbar spondylosis (10) ADALBERTO (obstructive sleep apnea) Assessment/Plan pt wants a PICC line all meds /notes reviewed\ start on laxis and bactrim Ds plastic surgery contacted, will do the procedure after clearance by cardio. I cleared him as pulmonary. pt/ot respiratory treatment titrate fio2 to sat of 92% dvt prophylaxis awaiting for surgery to be scheduled. Subjective ROS Limited/Unobtainable: No Constitutional: Reports: no symptoms HEENT: Repors: no symptoms Respiratory: Reports: no symptoms Allergies: Coded Allergies: ASPIRIN (Verified Allergy, Unknown, 07/14/18) KETOROLAC (Verified Allergy, Unknown, 07/14/18) PENICILLINS (Verified Allergy, Unknown, 07/14/18) Uncoded Allergies: PENICILIN (Allergy, Unknown, 12/14/18) Objective Last 24 Hour Vital Signs Date Time Temp Pulse Resp B/P (MAP) Pulse Ox O2 Delivery O2 Flow Rate FiO2 12/23/18 09:00 Room Air 12/23/18 08:00 98.2 85 21 109/74 (86) 99 12/23/18 04:00 98.2 82 18 107/71 (83) 96 12/23/18 00:00 98.2 82 18 106/55 (72) 99 12/22/18 21:00 Room Air 12/22/18 20:00 98.1 83 20 104/61 (75) 92 12/22/18 16:00 97.9 92 19 100/70 (80) 97 Intake and Output 12/22/18 12/23/18 19:00 07:00 Intake Total 1200 ml Output Total 400 ml Balance 1200 ml -400 ml Intake Oral 1200 ml Output Urine Total 400 ml # Voids 5 Objective HEENT: normocephalic, atraumatic Respiratory/Chest: chest wall non-tender, lungs clear Cardiovascular: normal peripheral pulses, normal rate Abdomen: normal bowel sounds, no organomegaly, massive fat on abdomen Extremities: no cyanosis Skin: no lesions Laboratory Tests 12/23/18 06:45: White Blood Count 5.4, Red Blood Count 4.85, Hemoglobin 14.8, Hematocrit 43.2, Mean Corpuscular Volume 89, Mean Corpuscular Hemoglobin 30.6, Mean Corpuscular Hemoglobin Concent 34.3, Red Cell Distribution Width 13.1, Platelet Count 206, Mean Platelet Volume 6.1L, Neutrophils (%) (Auto) 51.4, Lymphocytes (%) (Auto) 37.6, Monocytes (%) (Auto) 8.0, Eosinophils (%) (Auto) 1.9, Basophils (%) (Auto ) 1.1, Sodium Level 139, Potassium Level 4.2, Chloride Level 99, Carbon Dioxide Level 37H, Anion Gap 3L, Blood Urea Nitrogen 17, Creatinine 1.3, Estimat Glomerular Filtration Rate 57.3, Glucose Level 92, Calcium Level 9.0 Current Medications Medications (Trade) Dose Ordered Sig/Luis Route PRN Reason Start Time Stop Time Status Last Admin Dose Admin Acetaminophen (Tylenol) 650 mg Q4H PRN ORAL fever 12/15/18 14:54 01/14/19 14:53 Atorvastatin Calcium (Lipitor) 80 mg BEDTIME ORAL 12/15/18 21:00 01/14/19 20:59 12/22/18 21:59 Chlorhexidine Gluconate (Ruby-Hex 2%) 1 applic DAILY@1999 TOPIC 12/22/18 20:00 01/21/19 19:59 12/22/18 21:58 Clonidine HCl (Catapres Tab) 0.1 mg Q4H PRN ORAL For High Blood Pressure 12/15/18 14:56 01/14/19 14:55 Clopidogrel Bisulfate (Plavix) 75 mg DAILY ORAL 12/16/18 09:00 01/14/19 08:59 12/23/18 08:34 Dextrose (Dextrose 50%) 25 ml Q30M PRN IV Hypoglycemia 12/15/18 15:15 01/13/19 23:44 Dextrose (Dextrose 50%) 50 ml Q30M PRN IV Hypoglycemia 12/15/18 15:15 01/13/19 23:44 Duloxetine HCl (Cymbalta) 30 mg DAILY ORAL 12/16/18 09:00 01/14/19 08:59 12/23/18 08:34 Furosemide (Lasix) 20 mg ONCE IV 12/21/18 17:00 01/20/19 16:59 12/22/18 17:41 Furosemide (Lasix) 20 mg Q6HR IV 12/22/18 00:00 01/21/19 00:00 12/23/18 11:29 Gabapentin (Neurontin) 600 mg THREE TIMES A DAY ORAL 12/15/18 18:00 01/14/19 08:59 12/23/18 08:34 Heparin Sodium (Porcine) (Heparin 5000 units/ml) 5,000 units EVERY 12 HOURS SUBQ 12/15/18 21:00 01/14/19 08:59 12/22/18 22:01 Heparin Sodium/ Sodium Chloride (Heparin 1000 units/500ml Premix) 1,000 unit ONCE PRN IV picc line placement 12/22/18 13:30 12/23/18 13:29 Hydromorphone HCl (Dilaudid) 3 mg Q4H PRN IVP Severe Pain (Pain Scale 7-10) 12/19/18 16:15 12/26/18 16:14 12/23/18 11:30 Levetiracetam (Keppra) 1,000 mg Q12HR ORAL 12/19/18 09:00 01/18/19 08:59 12/23/18 08:35 Lidocaine HCl (Xylocaine 1% 30ml) 30 ml ONCE PRN INJ picc line placement 12/22/18 13:30 12/23/18 13:29 Nitroglycerin (Ntg) 0.4 mg Q5M X 3 DOSES PRN SL Prn Chest Pain 12/15/18 14:45 01/13/19 23:44 Ondansetron HCl (Zofran) 4 mg Q6H PRN IVP Nausea & Vomiting 12/15/18 14:55 01/14/19 14:54 12/17/18 10:19 Polyethylene Glycol (Miralax) 17 gm HSPRN PRN ORAL Constipation 12/15/18 14:55 01/14/19 14:54 Pregabalin (Lyrica) 75 mg THREE TIMES A DAY ORAL 12/22/18 09:00 01/19/19 22:59 12/23/18 08:34 Promethazine HCl/ Codeine (Phenergan with Codeine) 5 ml Q4H PRN ORAL For Cough 12/15/18 14:55 01/14/19 14:54 Trazodone HCl (Desyrel) 100 mg BEDTIME ORAL 12/15/18 21:00 01/14/19 20:59 12/22/18 21:59 Trimethoprim/ Sulfamethoxazole (Bactrim-DS) 1 tab Q12HR ORAL 12/22/18 21:00 12/28/18 17:59 12/23/18 08:34 Bill Dixon MD December 23, 2018 12:05
--- NOTE | 2018-12-23 13:35 | NUR ---
NURSE NOTES: Patient off floor for procedure.
--- NOTE | 2018-12-23 13:44 | General Progress Note ---
Assessment/Plan Problem List: (1) Abdominal pannus ICD Codes: E65 - Localized adiposity SNOMED: 4478810119561 (2) Peripheral edema ICD Codes: R60.9 - Edema, unspecified SNOMED: 877394697 (3) Abdominal wall cellulitis ICD Codes: L03.311 - Cellulitis of abdominal wall SNOMED: 98231200 (4) Leg pain ICD Codes: M79.606 - Pain in leg, unspecified SNOMED: 87025373 (5) COPD (chronic obstructive pulmonary disease) ICD Codes: J44.9 - Chronic obstructive pulmonary disease, unspecified SNOMED: 12807209 (6) Seizures ICD Codes: R56.9 - Unspecified convulsions SNOMED: 51049936 (7) Morbid obesity ICD Codes: E66.01 - Morbid (severe) obesity due to excess calories SNOMED: 498844389 (8) Cerebrovascular accident ICD Codes: I63.9 - Cerebral infarction, unspecified SNOMED: 977639438 (9) Left-sided weakness ICD Codes: R53.1 - Weakness SNOMED: 185411283 Status: stable, progressing Assessment/Plan: pt diet neuro f/u wound care abx pain control cbc bmp am pending abd pannus suregery Subjective Constitutional: Reports: weakness Allergies: Coded Allergies: ASPIRIN (Verified Allergy, Unknown, 07/14/18) KETOROLAC (Verified Allergy, Unknown, 07/14/18) PENICILLINS (Verified Allergy, Unknown, 07/14/18) Uncoded Allergies: PENICILIN (Allergy, Unknown, 12/14/18) All Systems: reviewed and negative except above Subjective calm sitting on bed Objective Last 24 Hour Vital Signs Date Time Temp Pulse Resp B/P (MAP) Pulse Ox O2 Delivery O2 Flow Rate FiO2 12/23/18 12:00 97.1 86 21 121/77 (92) 97 12/23/18 09:00 Room Air 12/23/18 08:00 98.2 85 21 109/74 (86) 99 12/23/18 04:00 98.2 82 18 107/71 (83) 96 12/23/18 00:00 98.2 82 18 106/55 (72) 99 12/22/18 21:00 Room Air 12/22/18 20:00 98.1 83 20 104/61 (75) 92 5/28/19 16:00 97.9 92 19 100/70 (80) 97 Intake and Output 12/22/18 12/23/18 19:00 07:00 Intake Total 1200 ml Output Total 400 ml Balance 1200 ml -400 ml Intake Oral 1200 ml Output Urine Total 400 ml # Voids 5 Laboratory Tests 12/23/18 06:45: White Blood Count 5.4, Red Blood Count 4.85, Hemoglobin 14.8, Hematocrit 43.2, Mean Corpuscular Volume 89, Mean Corpuscular Hemoglobin 30.6, Mean Corpuscular Hemoglobin Concent 34.3, Red Cell Distribution Width 13.1, Platelet Count 206, Mean Platelet Volume 6.1L, Neutrophils (%) (Auto) 51.4, Lymphocytes (%) (Auto) 37.6, Monocytes (%) (Auto) 8.0, Eosinophils (%) (Auto) 1.9, Basophils (%) (Auto ) 1.1, Sodium Level 139, Potassium Level 4.2, Chloride Level 99, Carbon Dioxide Level 37H, Anion Gap 3L, Blood Urea Nitrogen 17, Creatinine 1.3, Estimat Glomerular Filtration Rate 57.3, Glucose Level 92, Calcium Level 9.0 Height (Feet): 5 Height (Inches): 10.00 Weight (Pounds): 489 General Appearance: lethargic EENT: normal ENT inspection Neck: normal alignment Cardiovascular: normal peripheral pulses, normal rate, regular rhythm Respiratory/Chest: chest wall non-tender, decreased breath sounds Abdomen: normal bowel sounds, non tender, distended Extremities: normal inspection Edema: no edema noted Arm (L), no edema noted Arm (R), no edema noted Leg (L), no edema noted Leg (R), no edema noted Pedal (L), no edema noted Pedal (R), no edema noted Generalized Neurologic: responsive, motor weakness Skin: normal pigmentation, warm/dry Ernesto Nicole DO December 23, 2018 13:44
--- NOTE | 2018-12-23 15:07 | NUR ---
DISEASE CASE MANAGER RN NOTE: SWALLOW STATUS: PATIENT SEEN FOR DYSPHAGIA MOSTLY INCONSISTENT WITH THIN LIQUIDS PER PATIENT. NOT OBSERVED WITH DISEASE CASE MANAGER RN TODAY. PATIENT RECALLED THAT HE NEEDED TO TAKE ONLY ONE SMALL SIP AT A TIME AND FILL UP THE CUP WITH MORE LIQUID TO AVOID A HEAD TILT UP POSTURE. THESE STRATEGIES DID NOT ALWAYS WORK SO PATIENT TOLD TO TUCK CHIN AND HOLD BREATH THEN SWALLOW AND BREATHE. PATIENT INDEPENDENT IN STRATEGY. GOALS MET FOR PATIENT AND RN (LUISF ELIPE) EDUCATED/TRAINED IN ASP PRECAUTIONS AND SWALLOW STRATEGY. PATIENT NOT RECEPTIVE TO NECTAR THICK LIQUIDS BUT PER RN/MD LUNGS ARE CLEAR. GOALS MET FOR PATIENT INTAKE >75%. NOT ABLE TO HAVE MOD BARIUM SWALLOW STUDY DUE TO SCHEDULE CONFLICTS AND IT IS QUESTIONABLE IF HIS SHOULDERS WILL FIT BETWEEN THE C-ARM (UNLESS COMPLETED IN THE OBLIQUE POSITION). PLAN: CONTINUE WITH PLAN OF CARE AND MOD BARIUM SWALLOW STUDY IP OR OP IF DC (DO NOT HOLD UP D/C FOR THIS STUDY).
--- NOTE | 2018-12-23 15:24 | NUR ---
POLYSOMNOGRAPHY TECHNICIAN NOTES SPOKE WITH SADA FROM [facility], NO MALE BEDS AVAILABLE AT THIS TIME. BED OFF BEDHOLD. PER SADA THEY HAVE SCHEDULED DISCHARGES FOR TODAY. ENCOURAGED ME TO CALL IN AM. AND PT MADE AWARE.
--- NOTE | 2018-12-23 15:33 | Infectious Diseases Prog Note ---
Assessment/Plan Assessment/Plan Assessment: B/l Leg cellulitis and panniculitis- in the setting of chronic venous stasis L side weakness/spasticity- thought be 2ry to seizures- r/O CVA- no active infectious process at present (pt afebrile- doubt meningitis at this moment) Afebrile No leukocytosis -CXR: No acute findings CVA HTN bipolar disorder w/ psychotic features tobacco abuse anxiety disorder chronic pain CHF seizure disorder COPD morbid obesity Dm2 HTN SNF resident Plan: -Continue Bactrim #3 and add IV Ancef for cellulitis -f/u cx -Monitor CBC/CMP, temperatures -neuro f/u- plan for CT head, include neck as lump in back of neck; however pt did not fit on CT scan machine due to weight -aspiration precautions Subjective Allergies: Coded Allergies: ASPIRIN (Verified Allergy, Unknown, 07/14/18) KETOROLAC (Verified Allergy, Unknown, 07/14/18) PENICILLINS (Verified Allergy, Unknown, 07/14/18) Uncoded Allergies: PENICILIN (Allergy, Unknown, 12/14/18) Subjective patient unable to fit on CT scan due to weight afebrile no leukocytosis Objective Vital Signs Last 24 Hour Vital Signs Date Time Temp Pulse Resp B/P (MAP) Pulse Ox O2 Delivery O2 Flow Rate FiO2 12/23/18 12:00 97.1 86 21 121/77 (92) 97 12/23/18 09:00 Room Air 12/23/18 08:00 98.2 85 21 109/74 (86) 99 12/23/18 04:00 98.2 82 18 107/71 (83) 96 12/23/18 00:00 98.2 82 18 106/55 (72) 99 12/22/18 21:00 Room Air 12/22/18 20:00 98.1 83 20 104/61 (75) 92 12/22/18 16:00 97.9 92 19 100/70 (80) 97 Height (Feet): 5 Height (Inches): 10.00 Weight (Pounds): 489 Objective GENERAL: Calm in bed, oriented x3, in slight distress, secondary to weakness. CARDIOVASCULAR: No murmurs. LUNGS: Poor air exchange. ABDOMEN: Bowel sounds distant. EXTREMITIES: Show no cyanosis or clubbing. A 1+ edema in bilateral lower extremity. Large pannus noted in the abdomen area. NEUROLOGIC: The patient moves all extremities, slightly weak. Laboratory Tests Test 12/23/18 06:45 White Blood Count 5.4 K/UL (4.8-10.8) Red Blood Count 4.85 M/UL (4.70-6.10) Hemoglobin 14.8 G/DL (14.2-18.0) Hematocrit 43.2 % (42.0-52.0) Mean Corpuscular Volume 89 FL (80-99) Mean Corpuscular Hemoglobin 30.6 PG (27.0-31.0) Mean Corpuscular Hemoglobin Concent 34.3 G/DL (32.0-36.0) Red Cell Distribution Width 13.1 % (11.6-14.8) Platelet Count 206 K/UL (150-450) Mean Platelet Volume 6.1 FL (6.5-10.1) L Neutrophils (%) (Auto) 51.4 % (45.0-75.0) Lymphocytes (%) (Auto) 37.6 % (20.0-45.0) Monocytes (%) (Auto) 8.0 % (1.0-10.0) Eosinophils (%) (Auto) 1.9 % (0.0-3.0) Basophils (%) (Auto) 1.1 % (0.0-2.0) Sodium Level 139 MMOL/L (136-145) Potassium Level 4.2 MMOL/L (3.5-5.1) Chloride Level 99 MMOL/L (98-107) Carbon Dioxide Level 37 MMOL/L (21-32) H Anion Gap 3 mmol/L (5-15) L Blood Urea Nitrogen 17 mg/dL (7-18) Creatinine 1.3 MG/DL (0.55-1.30) Estimat Glomerular Filtration Rate 57.3 mL/min (>60) Glucose Level 92 MG/DL (74-106) Calcium Level 9.0 MG/DL (8.5-10.1) Current Medications Medications (Trade) Dose Ordered Sig/Luis Route PRN Reason Start Time Stop Time Status Last Admin Dose Admin Acetaminophen (Tylenol) 650 mg Q4H PRN ORAL fever 12/15/18 14:54 01/14/19 14:53 Atorvastatin Calcium (Lipitor) 80 mg BEDTIME ORAL 12/15/18 21:00 6/20/19 20:59 12/22/18 21:59 Chlorhexidine Gluconate (Ruby-Hex 2%) 1 applic DAILY@2000 TOPIC 12/22/18 20:00 01/21/19 19:59 12/22/18 21:58 Clonidine HCl (Catapres Tab) 0.1 mg Q4H PRN ORAL For High Blood Pressure 12/15/18 14:56 01/14/19 14:55 Clopidogrel Bisulfate (Plavix) 75 mg DAILY ORAL 12/16/18 09:00 01/14/19 08:59 12/23/18 08:34 Dextrose (Dextrose 50%) 25 ml Q30M PRN IV Hypoglycemia 12/15/18 15:15 01/13/19 23:44 Dextrose (Dextrose 50%) 50 ml Q30M PRN IV Hypoglycemia 12/15/18 15:15 01/13/19 23:44 Duloxetine HCl (Cymbalta) 30 mg DAILY ORAL 12/16/18 09:00 01/14/19 08:59 12/23/18 08:34 Furosemide (Lasix) 20 mg ONCE IV 12/21/18 17:00 01/20/19 16:59 12/22/18 17:41 Furosemide (Lasix) 20 mg Q6HR IV 12/22/18 00:00 01/21/19 00:00 12/23/18 11:29 Gabapentin (Neurontin) 600 mg THREE TIMES A DAY ORAL 12/15/18 18:00 01/14/19 08:59 12/23/18 13:22 Heparin Sodium (Porcine) (Heparin 5000 units/ml) 5,000 units EVERY 12 HOURS SUBQ 12/15/18 21:00 01/14/19 08:59 12/22/18 22:01 Hydromorphone HCl (Dilaudid) 3 mg Q4H PRN IVP Severe Pain (Pain Scale 7-10) 12/19/18 16:15 12/26/18 16:14 12/23/18 11:30 Levetiracetam (Keppra) 1,000 mg Q12HR ORAL 12/19/18 09:00 01/18/19 08:59 12/23/18 08:35 Nitroglycerin (Ntg) 0.4 mg Q5M X 3 DOSES PRN SL Prn Chest Pain 12/15/18 14:45 01/13/19 23:44 Ondansetron HCl (Zofran) 4 mg Q6H PRN IVP Nausea & Vomiting 12/15/18 14:55 01/14/19 14:54 12/17/18 10:19 Polyethylene Glycol (Miralax) 17 gm HSPRN PRN ORAL Constipation 12/15/18 14:55 01/14/19 14:54 Pregabalin (Lyrica) 75 mg THREE TIMES A DAY ORAL 12/22/18 09:00 01/19/19 22:59 12/23/18 13:22 Promethazine HCl/ Codeine (Phenergan with Codeine) 5 ml Q4H PRN ORAL For Cough 12/15/18 14:55 01/14/19 14:54 Trazodone HCl (Desyrel) 100 mg BEDTIME ORAL 12/15/18 21:00 01/14/19 20:59 12/22/18 21:59 Trimethoprim/ Sulfamethoxazole (Bactrim-DS) 1 tab Q12HR ORAL 12/22/18 21:00 12/28/18 17:59 12/23/18 08:34 Alexa Patterson M.D. December 23, 2018 15:33
--- NOTE | 2018-12-23 15:38 | Diagnostic Imaging Report ---
Indications: Needs long-term IV access Technique: Ultrasound confirms patent compressible right basilic vein. Total sterile technique, including sterile probe cover and sterile gel, hat, mask, sterile gown, large sterile drape, and preparation with 2% chlorhexidine utilized. Local anesthesia with 1% lidocaine. Under real-time ultrasound guidance, puncture basilic vein using 21-gauge needle, documented and archived, passage 0.018 guidewire under direct fluoroscopy, which was used to determine appropriate catheter length, exchange for 4 Bulgarian peel-away sheath. 4 Bulgarian Bard dual-lumen power PICC cut to 50 cm. It was inserted through the peel-away sheath. Peel-away sheath and guidewire removed. Catheter fixed to the skin. Both catheter ports aspirated and flushed. Patient tolerated procedure well, without immediate complication. Digital radiograph documents satisfactory catheter tip position, at the cavoatrial junction. Total fluoroscopy time 117.5 seconds. Total dose area product [id number] mGym2 Total number of images: 1 Impression: Successful placement of right arm PICC under sonographic and fluoroscopic guidance, as described above.
[2018-12-23 16:00] VITALS: BP 124/78
--- NOTE | 2018-12-23 17:00 | NUR ---
CARDIAC TECHNOLOGISTMINILAB OPERATOR SI: CVA . LEFT-SIDED WEAKNESS . ABDOMINAL WALL CELLULITIS VS: BP 106/55, P 83, T 97.1, RR 21, SpO2 99 MPV 6.1, CARBON DIOXIDE 37, ANION GAP 3 IS: DILAUDID 3mg GABAPENTIN 600mG LASIX 20mg LYRICA 75mg KEPPRA 1,000mg BACTRIM-DS 1tab PLAVIX 75mg CYMBALTA 30mg MED/SURG STATUS
--- NOTE | 2018-12-23 18:30 | Progress Note ---
DATE: 12/23/2018 NOTE: "VERY POOR AUDIO QUALITY" SUBJECTIVE: This is a 53-year-old male patient. The patient continues to have some anxiety and depression, worsened by medical illness that he has. He is also extremely guarded on interview. He is still irritable every time I walk in the room. This morning when I walked in his room, he stated "what do you want?." he is very agitated and irritable. He but he still continues to be very irritable, complaining a lot, seemed to be very menjivar gentleman. MENTAL STATUS EXAMINATION: A 53-year-old male. His appearance is disheveled. Attitude, irritable and agitated. Affect, guarded and restricted. Intellect poor. Mood, depressed and anxious. Motor activity, psychomotor agitation. Attention span is poor. Orientation x2. Speech is pressured. Thought process, disorganized and illogical. Insight and judgment is poor. DIAGNOSIS: Major depressive disorder, mild, recurrent, without psychotic features. PLAN: Continue treating him with a medication regimen of trazodone 100 mg nightly for insomnia and then also Neurontin 600 mg 3 times a day, and Cymbalta 30 mg a day. Provided him with 20 minutes of cognitive behavioral therapy to help him identify his automatic negative thoughts and to help him convert his negative thoughts to more positive thoughts to reduce depression, anxiety, mood lability and help him have more adaptive behavioral pattern. Seen and assessed in his room. Chart reviewed. Discussed with staff. Laney Mcghee M.D. DR: GEENA JOB#: [id number] CC:
[2018-12-23] MEDS: ceFAZolin sod 2 GM in D5W 110 ML IVPB SCH ×2 (18:37→21:30)
--- NOTE | 2018-12-23 18:43 | Cardiology Progress Note ---
Assessment/Plan Assessment/Plan 1. Morbid obesity with pannus formation, normal LV systolic and diastolic function per recent echo, clear for "removal of pannus", with the risk of coronary artery events perioperatively estimated to be less than 1%. 2. Chronic venous insufficiency. 3. Hx of HTN, diet controlled. 4. COPD Subjective Subjective Deniers chest pain or SOB. Objective Last 24 Hour Vital Signs Date Time Temp Pulse Resp B/P (MAP) Pulse Ox O2 Delivery O2 Flow Rate FiO2 12/23/18 16:00 98.8 83 19 124/78 (93) 99 12/23/18 12:00 97.1 86 21 121/77 (92) 97 12/23/18 09:00 Room Air 12/23/18 08:00 98.2 85 21 109/74 (86) 99 12/23/18 04:00 98.2 82 18 107/71 (83) 96 12/23/18 00:00 98.2 82 18 106/55 (72) 99 12/22/18 21:00 Room Air 12/22/18 20:00 98.1 83 20 104/61 (75) 92 Intake and Output 12/22/18 12/23/18 19:00 07:00 Intake Total 1200 ml Output Total 400 ml Balance 1200 ml -400 ml Intake Oral 1200 ml Output Urine Total 400 ml # Voids 5 2D Echo: Normal LV systolic function, RVSP 34 mmHg, RAP elevated at 15 mmHg Laboratory Tests Test 12/23/18 06:45 White Blood Count 5.4 K/UL (4.8-10.8) Red Blood Count 4.85 M/UL (4.70-6.10) Hemoglobin 14.8 G/DL (14.2-18.0) Hematocrit 43.2 % (42.0-52.0) Mean Corpuscular Volume 89 FL (80-99) Mean Corpuscular Hemoglobin 30.6 PG (27.0-31.0) Mean Corpuscular Hemoglobin Concent 34.3 G/DL (32.0-36.0) Red Cell Distribution Width 13.1 % (11.6-14.8) Platelet Count 206 K/UL (150-450) Mean Platelet Volume 6.1 FL (6.5-10.1) L Neutrophils (%) (Auto) 51.4 % (45.0-75.0) Lymphocytes (%) (Auto) 37.6 % (20.0-45.0) Monocytes (%) (Auto) 8.0 % (1.0-10.0) Eosinophils (%) (Auto) 1.9 % (0.0-3.0) Basophils (%) (Auto) 1.1 % (0.0-2.0) Sodium Level 139 MMOL/L (136-145) Potassium Level 4.2 MMOL/L (3.5-5.1) Chloride Level 99 MMOL/L (98-107) Carbon Dioxide Level 37 MMOL/L (21-32) H Anion Gap 3 mmol/L (5-15) L Blood Urea Nitrogen 17 mg/dL (7-18) Creatinine 1.3 MG/DL (0.55-1.30) Estimat Glomerular Filtration Rate 57.3 mL/min (>60) Glucose Level 92 MG/DL (74-106) Calcium Level 9.0 MG/DL (8.5-10.1) Objective HEENT: Atraumatic and normocephalic. Anicteric. Pupils are equal, round, and reactive to light and accommodation. NECK: JVP cannot be assessed due to obesity. No carotid bruit. CARDIOVASCULAR: Normal S1, S2. Regular rate and rhythm. No murmurs, gallops, or rubs. PMI is at fourth intercostal space at the midclavicular line. LUNGS: Clear to auscultation bilaterally. ABDOMEN: Distended due to pannus formation, cannot palpate hepatosplenomegaly. Positive bowel sounds. EXTREMITIES: No lower extremity edema, clubbing or cyanosis. Carlos Martins MD December 23, 2018 18:43
--- NOTE | 2018-12-23 19:35 | NUR ---
HAND-OFF: Report given to RN Kirsty.
--- NOTE | 2018-12-23 19:36 | NUR ---
NURSE NOTES: RECEIVED PT FROM MICAELA BRISCOE. PT IS AWAKE, AAOX4, C/O 10/10 PAIN IN BILATERAL LEGS. ON ROOM AIR, UNLABORED BREATHING. BED IS LOCKED AT THE LOWEST POSITION, BED ALARMS ACTIVE, SIDE RAILS UP X2, AND CALL LIGHT IS WITHIN REACH. WILL CONTINUE TO MONITOR.
[2018-12-23 20:00] VITALS: BP 134/81
[2018-12-23] MEDS: Dyna-Hex 2% Top Sol 2oz TOPIC SCH (20:00)
[2018-12-23] MEDS: TraZODone 100mg tab ORAL SCH (21:27)
[2018-12-23] MEDS: Atorvastatin 80mg tab ORAL SCH (21:28)
--- NOTE | 2018-12-23 23:42 | Neurology Progress Note ---
Interim History Interim History ROS Limited/Unobtainable: No Complaints: Left sided weakness/ spasticity Events: ARM WEAKNESS RESOLVED, HAND Weakness slowly improving Interim History This visit was performed on December 23, [address] Brewster. Objective Physical Exam Last Vital Signs Date Time Temp Pulse Resp B/P (MAP) Pulse Ox O2 Delivery O2 Flow Rate FiO2 12/23/18 20:00 98.3 86 20 134/81 (98) 96 12/23/18 09:00 Room Air 12/20/18 20:42 21 Laboratory Tests Test 12/23/18 06:45 White Blood Count 5.4 K/UL (4.8-10.8) Red Blood Count 4.85 M/UL (4.70-6.10) Hemoglobin 14.8 G/DL (14.2-18.0) Hematocrit 43.2 % (42.0-52.0) Mean Corpuscular Volume 89 FL (80-99) Mean Corpuscular Hemoglobin 30.6 PG (27.0-31.0) Mean Corpuscular Hemoglobin Concent 34.3 G/DL (32.0-36.0) Red Cell Distribution Width 13.1 % (11.6-14.8) Platelet Count 206 K/UL (150-450) Mean Platelet Volume 6.1 FL (6.5-10.1) L Neutrophils (%) (Auto) 51.4 % (45.0-75.0) Lymphocytes (%) (Auto) 37.6 % (20.0-45.0) Monocytes (%) (Auto) 8.0 % (1.0-10.0) Eosinophils (%) (Auto) 1.9 % (0.0-3.0) Basophils (%) (Auto) 1.1 % (0.0-2.0) Sodium Level 139 MMOL/L (136-145) Potassium Level 4.2 MMOL/L (3.5-5.1) Chloride Level 99 MMOL/L (98-107) Carbon Dioxide Level 37 MMOL/L (21-32) H Anion Gap 3 mmol/L (5-15) L Blood Urea Nitrogen 17 mg/dL (7-18) Creatinine 1.3 MG/DL (0.55-1.30) Estimat Glomerular Filtration Rate 57.3 mL/min (>60) Glucose Level 92 MG/DL (74-106) Calcium Level 9.0 MG/DL (8.5-10.1) General: well developed, well nourished, other - Morbidly obese Head: normocophalic Neck: no rigidity EENT: benign Neurologic Exam Mental Status: awake, alert, oriented x4, normal cognition, good mathematical skills, normal recent memory, normal remote memory, preserved visuospatial function Speech: normal speech, no dysarthia Language: normal language, no aphasia Cranial Nerve II: fundus normal, visual bonilla, no papilledema Cranial Nerves III, IV, : PERRLA, EOMI, pupils Cranial Nerve V: normal facial sensations, temporales function normal, masseters function normal, pterygoids function normal Cranial Nerve VII: normal facial expressions, other Cranial Nerve VIII: normal hearing, no nystagmus Cranial Nerve IX: normal palate elevation, gag response Cranial Nerve X: no voice hoarseness Cranial Nerve XI: SCM symmetric, trapezii function normal Cranial Nerve XII: tongue midline, no tongue atrophy/fasciculations Motor System: normal muscle tone, no involuntary movement, no muscle wasting Sensory: normal pinprick, normal light touch, normal position sense, normal graphesthesia Coordination: negative Romberg test Deep Tendon Reflexes: 1+ bicep (L), 1+ bicep (R), 1+ tricep (L), 1+ tricep (R) , 1+ brachioradialis (L), 1+ brachioradialis (R), 1+ knee (L), 1+ knee (R), 1+ ankle (L), 1+ ankle (R) Reflexes: flexor plantar (L), flexor plantar (R); extensor plantar (L), extensor plantar (R) Stance: other - Broad based Objective Left arm, predominantly hand weakness at this time. Alert and oriented, intermittently agitated / irritable Ambulatory with cellulitis persisting on RLE He does not have proximal left arm weakness at this time or facial weakness, tongue deviated on exam . Impression/Recommendations Problems: (1) Seizures Assessment & Plan: Keppra 1000mg BID PO Maintain SBP<140 Q4 Hour Neuro Checks Ativan 2mg PRN for seizure activity CT Head w/o contrast when able to rule out CVA - also for consideration of MRI if CT negative. - low suspicion of CVA due to normotensive status without risk factors of elevated BP/ HgBA1c or thyroid dysfunction. Na 135-145 Continue pain management - Lyrica 50mg TID - May increase to 75mg TID as needed Continue Gabapentin 600mg TID (2) Morbid obesity (3) COPD (chronic obstructive pulmonary disease) (4) Uncontrolled seizures (5) Left-sided weakness (6) Knee osteomyelits, right Status: stable, progressing Recommendations Continue neuroleptic meds as per psychiatry Some increased agitation - consider additiona 25mg Seroquel PRN for agitation Maintain SBP<140 PT/OT evals CT/ MRI follow up to rule out stroke - wait list for transfer and open MRI scanner EEG as outpatient Continue Lyrica 75mg TID---will increase as needed Q4 hour Neuro Obs - NO NIGHTTIME OBS if stable Prevent delirium Maintain regular sleep schedule and reduce nighttime activities such as observations (if unnecessary) Check LFTS prior to D/C and encourage follow up if they remain elevated .May need to revise Vicky Fonseca N.P. December 23, 2018 23:42
[2018-12-24] VITALS: BP 130/69
[2018-12-24 04:13] VITALS: BP 115/68
[2018-12-24] MEDS: ceFAZolin sod 2 GM in D5W 110 ML IVPB SCH ×2 (06:31→14:26)
--- NOTE | 2018-12-24 07:25 | NUR ---
NURSE NOTES: Report received from Kirsty RN, rounds made. Patient sleeping on left lateral. No distress noted on RA. Right PICC noted, clamped, dressing CDI. Bed in lowest position, call light in reach. Will continue to monitor.
[2018-12-24 07:47] LABS: BASOPHILS % (AUTO) 0.7 % (0.0-2.0); EOSINOPHILS % (AUTO) 2.1 % (0.0-3.0); HEMATOCRIT 38.8 % (42.0-52.0); HEMOGLOBIN 12.9 G/DL (14.2-18.0); LYMPHOCYTES % (AUTO) 33.9 % (20.0-45.0); MEAN CORPUSCULAR VOLUME 91 FL (80-99); MONOCYTES % (AUTO) 8.8 % (1.0-10.0); NEUTROPHILS % (AUTO) 54.5 % (45.0-75.0); PLATELET COUNT 177 K/UL (150-450); RED BLOOD COUNT 4.26 M/UL (4.70-6.10); WHITE BLOOD COUNT 6.3 K/UL (4.8-10.8)
[2018-12-24 07:57] LABS: ANION GAP 5 mmol/L (5-15); BLOOD UREA NITROGEN 17 mg/dL (7-18); CALCIUM 8.4 MG/DL (8.5-10.1); CARBON DIOXIDE 33 MMOL/L (21-32); CHLORIDE 100 MMOL/L (98-107); CREATININE 1.2 MG/DL (0.55-1.30); POTASSIUM 4.1 MMOL/L (3.5-5.1); SODIUM 138 MMOL/L (136-145)
--- NOTE | 2018-12-24 07:59 | NUR ---
HAND-OFF: Report given to MICAELA SOMMER.
[2018-12-24 08:00] VITALS: BP 123/66
--- NOTE | 2018-12-24 08:50 | General Progress Note ---
Assessment/Plan Assessment/Plan: (1) Lumbar DDD (2) Lumbar Spondylosis (3) Lumbar Radiculopathy (4) Morbid Obesity (5) Right knee pain (6) Right knee OA h/o ORIF We will continue patient on Dilaudid as needed. D/w Dr. Magaña and he concurred. Subjective Date patient seen: December 24, 2018 Time patient seen: 07:15 - am Allergies: Coded Allergies: ASPIRIN (Verified Allergy, Unknown, 07/14/18) KETOROLAC (Verified Allergy, Unknown, 07/14/18) PENICILLINS (Verified Allergy, Unknown, 12/23/18) tolerated Ancef on 08/2018 Uncoded Allergies: PENICILIN (Allergy, Unknown, 12/14/18) Subjective REVIEW OF SYSTEMS: Denies rash, fever, chills, sweating, dizziness, drowsiness, blurred vision, sore throat, change in weight. No nausea, vomiting, diarrhea, or blood in the stool or urine. No bowel or bladder incontinence. No dysuria. He is complaining of low back pain SUBJECTIVE: Patient is in bed and continues to c/o pain which he describes as stabbing. The pain has been tolerated on the Dilaudid 6 doses in the last 24hrs. Objective Last 24 Hour Vital Signs Date Time Temp Pulse Resp B/P (MAP) Pulse Ox O2 Delivery O2 Flow Rate FiO2 12/24/18 04:13 97.6 85 18 115/68 (84) 98 12/24/18 00:00 98.6 76 18 130/69 (89) 12/23/18 21:00 Room Air 12/23/18 20:00 98.3 86 20 134/81 (98) 96 12/23/18 16:00 98.8 83 19 124/78 (93) 99 12/23/18 12:00 97.1 86 21 121/77 (92) 97 12/23/18 09:00 Room Air Intake and Output 12/23/18 12/24/18 19:00 07:00 Intake Total 1440 ml 220 ml Output Total 500 ml Balance 1440 ml -280 ml Intake Oral 1440 ml IV Total 220 ml Output Urine Total 500 ml # Voids 3 Laboratory Tests 12/24/18 06:30: White Blood Count 6.3, Red Blood Count 4.26L, Hemoglobin 12.9L, Hematocrit 38.8L , Mean Corpuscular Volume 91, Mean Corpuscular Hemoglobin 30.3, Mean Corpuscular Hemoglobin Concent 33.2, Red Cell Distribution Width 13.0, Platelet Count 177, Mean Platelet Volume 6.0L, Neutrophils (%) (Auto) 54.5, Lymphocytes ( %) (Auto) 33.9, Monocytes (%) (Auto) 8.8, Eosinophils (%) (Auto) 2.1, Basophils (%) (Auto) 0.7, Sodium Level 138, Potassium Level 4.1, Chloride Level 100, Carbon Dioxide Level 33H, Anion Gap 5, Blood Urea Nitrogen 17, Creatinine 1.2, Estimat Glomerular Filtration Rate > 60, Glucose Level 97, Calcium Level 8.4L Height (Feet): 5 Height (Inches): 10.00 Weight (Pounds): 489 Objective GENERAL: Alert, awake, and oriented x3. LUNGS: Decreased breath sounds bilaterally. HEART: S1 and S2, regular. ABDOMEN: Obese. EXTREMITIES: No cyanosis. No clubbing. No edema. NEURO: No changes. Eliezer Nicole December 24, 2018 08:50
--- NOTE | 2018-12-24 09:12 | Infectious Diseases Prog Note ---
Assessment/Plan Assessment/Plan Assessment: B/l Leg cellulitis and panniculitis- in the setting of chronic venous stasis L side weakness/spasticity- thought be 2ry to seizures- r/O CVA- no active infectious process at present (pt afebrile- doubt meningitis at this moment) Afebrile No leukocytosis -CXR: No acute findings CVA HTN bipolar disorder w/ psychotic features tobacco abuse anxiety disorder chronic pain CHF seizure disorder COPD morbid obesity Dm2 HTN SNF resident Plan: -Continue Bactrim #10/08 and add IV Ancef #2 for cellulitis -f/u cx -Monitor CBC/CMP, temperatures -neuro f/u- plan for CT head, include neck as lump in back of neck; however pt did not fit on CT scan machine due to weight -aspiration precautions -wound care per hospital protocol Subjective Allergies: Coded Allergies: ASPIRIN (Verified Allergy, Unknown, 07/14/18) KETOROLAC (Verified Allergy, Unknown, 07/14/18) PENICILLINS (Verified Allergy, Unknown, 12/23/18) tolerated Ancef on 08/2018 Uncoded Allergies: PENICILIN (Allergy, Unknown, 12/14/18) Subjective afebrile no leukocytosis Objective Vital Signs Last 24 Hour Vital Signs Date Time Temp Pulse Resp B/P (MAP) Pulse Ox O2 Delivery O2 Flow Rate FiO2 12/24/18 04:13 97.6 85 18 115/68 (84) 98 12/24/18 00:00 98.6 76 18 130/69 (89) 12/23/18 21:00 Room Air 12/23/18 20:00 98.3 86 20 134/81 (98) 96 12/23/18 16:00 98.8 83 19 124/78 (93) 99 12/23/18 12:00 97.1 86 21 121/77 (92) 97 Height (Feet): 5 Height (Inches): 10.00 Weight (Pounds): 489 Objective GENERAL: Calm in bed, oriented x3, in slight distress, secondary to weakness. CARDIOVASCULAR: No murmurs. LUNGS: Poor air exchange. ABDOMEN: Bowel sounds distant. EXTREMITIES: Show no cyanosis or clubbing. A +3 edema in bilateral lower extremity w/ warmth, erythema, superficial ulcers and TTP. Large pannus noted in the abdomen area w/ warmth, edema and erythema NEUROLOGIC: The patient moves all extremities, slightly weak. Laboratory Tests Test 12/24/18 06:30 White Blood Count 6.3 K/UL (4.8-10.8) Red Blood Count 4.26 M/UL (4.70-6.10) L Hemoglobin 12.9 G/DL (14.2-18.0) L Hematocrit 38.8 % (42.0-52.0) L Mean Corpuscular Volume 91 FL (80-99) Mean Corpuscular Hemoglobin 30.3 PG (27.0-31.0) Mean Corpuscular Hemoglobin Concent 33.2 G/DL (32.0-36.0) Red Cell Distribution Width 13.0 % (11.6-14.8) Platelet Count 177 K/UL (150-450) Mean Platelet Volume 6.0 FL (6.5-10.1) L Neutrophils (%) (Auto) 54.5 % (45.0-75.0) Lymphocytes (%) (Auto) 33.9 % (20.0-45.0) Monocytes (%) (Auto) 8.8 % (1.0-10.0) Eosinophils (%) (Auto) 2.1 % (0.0-3.0) Basophils (%) (Auto) 0.7 % (0.0-2.0) Sodium Level 138 MMOL/L (136-145) Potassium Level 4.1 MMOL/L (3.5-5.1) Chloride Level 100 MMOL/L (98-107) Carbon Dioxide Level 33 MMOL/L (21-32) H Anion Gap 5 mmol/L (5-15) Blood Urea Nitrogen 17 mg/dL (7-18) Creatinine 1.2 MG/DL (0.55-1.30) Estimat Glomerular Filtration Rate > 60 mL/min (>60) Glucose Level 97 MG/DL (74-106) Calcium Level 8.4 MG/DL (8.5-10.1) L Current Medications Medications (Trade) Dose Ordered Sig/Luis Route PRN Reason Start Time Stop Time Status Last Admin Dose Admin Acetaminophen (Tylenol) 650 mg Q4H PRN ORAL fever 12/15/18 14:54 01/14/19 14:53 Atorvastatin Calcium (Lipitor) 80 mg BEDTIME ORAL 12/15/18 21:00 01/14/19 20:59 12/23/18 21:28 Cefazolin Sodium 2 gm/Dextrose 110 ml @ 220 mls/hr Q8HR IVPB 12/23/18 17:30 12/30/18 17:29 12/24/18 06:31 Chlorhexidine Gluconate (Ruby-Hex 2%) 1 applic DAILY@2000 TOPIC 12/22/18 20:00 01/21/19 19:59 12/22/18 21:58 Clonidine HCl (Catapres Tab) 0.1 mg Q4H PRN ORAL For High Blood Pressure 12/15/18 14:56 01/14/19 14:55 Clopidogrel Bisulfate (Plavix) 75 mg DAILY ORAL 12/16/18 09:00 01/14/19 08:59 12/23/18 08:34 Dextrose (Dextrose 50%) 25 ml Q30M PRN IV Hypoglycemia 12/15/18 15:15 01/13/19 23:44 Dextrose (Dextrose 50%) 50 ml Q30M PRN IV Hypoglycemia 12/15/18 15:15 01/13/19 23:44 Duloxetine HCl (Cymbalta) 30 mg DAILY ORAL 12/16/18 09:00 01/14/19 08:59 12/23/18 08:34 Furosemide (Lasix) 20 mg ONCE IV 12/21/18 17:00 01/20/19 16:59 12/23/18 18:35 Furosemide (Lasix) 20 mg Q6HR IV 12/22/18 00:00 01/21/19 00:00 12/24/18 06:30 Gabapentin (Neurontin) 600 mg THREE TIMES A DAY ORAL 12/15/18 18:00 01/14/19 08:59 12/23/18 18:36 Heparin Sodium (Porcine) (Heparin 5000 units/ml) 5,000 units EVERY 12 HOURS SUBQ 12/15/18 21:00 01/14/19 08:59 12/23/18 21:31 Hydromorphone HCl (Dilaudid) 3 mg Q4H PRN IVP Severe Pain (Pain Scale 7-10) 12/19/18 16:15 12/26/18 16:14 12/24/18 04:42 Levetiracetam (Keppra) 1,000 mg Q12HR ORAL 12/19/18 09:00 01/18/19 08:59 12/23/18 21:27 Nitroglycerin (Ntg) 0.4 mg Q5M X 3 DOSES PRN SL Prn Chest Pain 12/15/18 14:45 01/13/19 23:44 Ondansetron HCl (Zofran) 4 mg Q6H PRN IVP Nausea & Vomiting 12/15/18 14:55 01/14/19 14:54 12/17/18 10:19 Polyethylene Glycol (Miralax) 17 gm HSPRN PRN ORAL Constipation 12/15/18 14:55 01/14/19 14:54 Pregabalin (Lyrica) 75 mg THREE TIMES A DAY ORAL 12/22/18 09:00 01/19/19 22:59 12/23/18 18:36 Promethazine HCl/ Codeine (Phenergan with Codeine) 5 ml Q4H PRN ORAL For Cough 12/15/18 14:55 01/14/19 14:54 Trazodone HCl (Desyrel) 100 mg BEDTIME ORAL 12/15/18 21:00 01/14/19 20:59 12/23/18 21:27 Trimethoprim/ Sulfamethoxazole (Bactrim-DS) 1 tab Q12HR ORAL 12/22/18 21:00 12/28/18 17:59 12/23/18 21:27 Alexa Patterson M.D. December 24, 2018 09:12
[2018-12-24] MEDS: Heparin 5000 units/ml inj SUBQ SCH ×2 (09:32→22:12)
[2018-12-24] MEDS: DULoxetine 30mg cap ORAL SCH (09:33)
[2018-12-24] MEDS: Lyrica 75mg cap ORAL SCH ×3 (09:34→17:48)
[2018-12-24] MEDS: Bactrim-DS 1 tab ORAL SCH ×2 (09:34→22:02)
[2018-12-24 12:00] VITALS: BP 106/54
--- NOTE | 2018-12-24 12:20 | Pulmonology Progress Note ---
Assessment/Plan Problems: (1) Morbid obesity (2) Peripheral edema (3) Cellulitis (4) Seizures (5) Cerebrovascular accident (6) Left-sided weakness (7) COPD (chronic obstructive pulmonary disease) (8) Right heart failure (9) Lumbar spondylosis (10) ADALBERTO (obstructive sleep apnea) Assessment/Plan got PICC line all meds /notes reviewed\ start on laxis and bactrim Ds plastic surgery contacted, will do the procedure after clearance by cardio. I cleared him as pulmonary. pt/ot respiratory treatment titrate fio2 to sat of 92% dvt prophylaxis awaiting for surgery to be scheduled. Subjective ROS Limited/Unobtainable: No Constitutional: Reports: no symptoms HEENT: Repors: no symptoms Allergies: Coded Allergies: ASPIRIN (Verified Allergy, Unknown, 07/14/18) KETOROLAC (Verified Allergy, Unknown, 07/14/18) PENICILLINS (Verified Allergy, Unknown, 12/23/18) tolerated Ancef on 08/2018 Uncoded Allergies: PENICILIN (Allergy, Unknown, 12/14/18) Objective Last 24 Hour Vital Signs Date Time Temp Pulse Resp B/P (MAP) Pulse Ox O2 Delivery O2 Flow Rate FiO2 12/24/18 04:13 97.6 85 18 115/68 (84) 98 12/24/18 00:00 98.6 76 18 130/69 (89) 12/23/18 21:00 Room Air 12/23/18 20:00 98.3 86 20 134/81 (98) 96 12/23/18 16:00 98.8 83 19 124/78 (93) 99 Intake and Output 12/23/18 12/24/18 19:00 07:00 Intake Total 1440 ml 220 ml Output Total 500 ml Balance 1440 ml -280 ml Intake Oral 1440 ml IV Total 220 ml Output Urine Total 500 ml # Voids 3 Objective HEENT: normocephalic, atraumatic Respiratory/Chest: chest wall non-tender, lungs clear Cardiovascular: normal peripheral pulses, normal rate Abdomen: normal bowel sounds, no organomegaly, massive fat on abdomen Extremities: no cyanosis Skin: no lesions Laboratory Tests 12/24/18 06:30: White Blood Count 6.3, Red Blood Count 4.26L, Hemoglobin 12.9L, Hematocrit 38.8L , Mean Corpuscular Volume 91, Mean Corpuscular Hemoglobin 30.3, Mean Corpuscular Hemoglobin Concent 33.2, Red Cell Distribution Width 13.0, Platelet Count 177, Mean Platelet Volume 6.0L, Neutrophils (%) (Auto) 54.5, Lymphocytes ( %) (Auto) 33.9, Monocytes (%) (Auto) 8.8, Eosinophils (%) (Auto) 2.1, Basophils (%) (Auto) 0.7, Sodium Level 138, Potassium Level 4.1, Chloride Level 100, Carbon Dioxide Level 33H, Anion Gap 5, Blood Urea Nitrogen 17, Creatinine 1.2, Estimat Glomerular Filtration Rate > 60, Glucose Level 97, Calcium Level 8.4L Current Medications Medications (Trade) Dose Ordered Sig/Luis Route PRN Reason Start Time Stop Time Status Last Admin Dose Admin Acetaminophen (Tylenol) 650 mg Q4H PRN ORAL fever 12/15/18 14:54 01/14/19 14:53 Atorvastatin Calcium (Lipitor) 80 mg BEDTIME ORAL 12/15/18 21:00 01/14/19 20:59 12/23/18 21:28 Cefazolin Sodium 2 gm/Dextrose 110 ml @ 220 mls/hr Q8HR IVPB 12/23/18 17:30 12/30/18 17:29 12/24/18 06:31 Chlorhexidine Gluconate (Ruby-Hex 2%) 1 applic DAILY@2000 TOPIC 12/22/18 20:00 01/21/19 19:59 12/22/18 21:58 Clonidine HCl (Catapres Tab) 0.1 mg Q4H PRN ORAL For High Blood Pressure 12/15/18 14:56 01/14/19 14:55 Clopidogrel Bisulfate (Plavix) 75 mg DAILY ORAL 12/16/18 09:00 01/14/19 08:59 12/24/18 09:32 Dextrose (Dextrose 50%) 25 ml Q30M PRN IV Hypoglycemia 12/15/18 15:15 01/13/19 23:44 Dextrose (Dextrose 50%) 50 ml Q30M PRN IV Hypoglycemia 12/15/18 15:15 01/13/19 23:44 Duloxetine HCl (Cymbalta) 30 mg DAILY ORAL 12/16/18 09:00 01/14/19 08:59 12/24/18 09:33 Furosemide (Lasix) 20 mg ONCE IV 12/21/18 17:00 01/20/19 16:59 12/23/18 18:35 Furosemide (Lasix) 20 mg Q6HR IV 12/22/18 00:00 01/21/19 00:00 12/24/18 06:30 Gabapentin (Neurontin) 600 mg THREE TIMES A DAY ORAL 12/15/18 18:00 01/14/19 08:59 12/24/18 09:32 Heparin Sodium (Porcine) (Heparin 5000 units/ml) 5,000 units EVERY 12 HOURS SUBQ 12/15/18 21:00 01/14/19 08:59 12/24/18 09:32 Hydromorphone HCl (Dilaudid) 3 mg Q4H PRN IVP Severe Pain (Pain Scale 7-10) 12/19/18 16:15 12/26/18 16:14 12/24/18 09:23 Levetiracetam (Keppra) 1,000 mg Q12HR ORAL 12/19/18 09:00 01/18/19 08:59 12/24/18 09:32 Nitroglycerin (Ntg) 0.4 mg Q5M X 3 DOSES PRN SL Prn Chest Pain 12/15/18 14:45 01/13/19 23:44 Ondansetron HCl (Zofran) 4 mg Q6H PRN IVP Nausea & Vomiting 12/15/18 14:55 01/14/19 14:54 12/17/18 10:19 Polyethylene Glycol (Miralax) 17 gm HSPRN PRN ORAL Constipation 12/15/18 14:55 01/14/19 14:54 Pregabalin (Lyrica) 75 mg THREE TIMES A DAY ORAL 12/22/18 09:00 01/19/19 22:59 12/24/18 09:34 Promethazine HCl/ Codeine (Phenergan with Codeine) 5 ml Q4H PRN ORAL For Cough 12/15/18 14:55 01/14/19 14:54 Trazodone HCl (Desyrel) 100 mg BEDTIME ORAL 12/15/18 21:00 01/14/19 20:59 12/23/18 21:27 Trimethoprim/ Sulfamethoxazole (Bactrim-DS) 1 tab Q12HR ORAL 12/22/18 21:00 12/28/18 17:59 12/24/18 09:34 Bill Dixon MD December 24, 2018 12:20
--- NOTE | 2018-12-24 14:00 | NUR ---
PT NOTE Attempted to see patient for PT treatment. Patient declining to participate with PT at this time, reports that he is not feeling well, c/o pain. Patient states that he has been up to the bathroom several times today, states he will participate with PT tomorrow. Patient's right to decline respected, Kenna HINOJOSA notified, will follow up tomorrow.
--- NOTE | 2018-12-24 14:36 | General Progress Note ---
Assessment/Plan Problem List: (1) Abdominal pannus ICD Codes: E65 - Localized adiposity SNOMED: 3089256574644 (2) Peripheral edema ICD Codes: R60.9 - Edema, unspecified SNOMED: 654358187 (3) Abdominal wall cellulitis ICD Codes: L03.311 - Cellulitis of abdominal wall SNOMED: 25172105 (4) Leg pain ICD Codes: M79.606 - Pain in leg, unspecified SNOMED: 75704507 (5) COPD (chronic obstructive pulmonary disease) ICD Codes: J44.9 - Chronic obstructive pulmonary disease, unspecified SNOMED: 55488788 (6) Seizures ICD Codes: R56.9 - Unspecified convulsions SNOMED: 58422362 (7) Morbid obesity ICD Codes: E66.01 - Morbid (severe) obesity due to excess calories SNOMED: 082119626 (8) Cerebrovascular accident ICD Codes: I63.9 - Cerebral infarction, unspecified SNOMED: 371080971 (9) Left-sided weakness ICD Codes: R53.1 - Weakness SNOMED: 305118806 Status: stable, progressing Assessment/Plan: pt diet neuro f/u wound care abx pain control cbc bmp am dc to snf Subjective Constitutional: Reports: weakness Allergies: Coded Allergies: ASPIRIN (Verified Allergy, Unknown, 07/14/18) KETOROLAC (Verified Allergy, Unknown, 07/14/18) PENICILLINS (Verified Allergy, Unknown, 12/23/18) tolerated Ancef on 08/2018 Uncoded Allergies: PENICILIN (Allergy, Unknown, 12/14/18) All Systems: reviewed and negative except above Subjective sleepy calm Objective Last 24 Hour Vital Signs Date Time Temp Pulse Resp B/P (MAP) Pulse Ox O2 Delivery O2 Flow Rate FiO2 12/24/18 12:00 98.4 77 20 106/54 (71) 94 12/24/18 09:00 Room Air 12/24/18 08:00 98.3 85 20 123/66 (85) 95 12/24/18 04:13 97.6 85 18 115/68 (84) 98 12/24/18 00:00 98.6 76 18 130/69 (89) 12/23/18 21:00 Room Air 12/23/18 20:00 98.3 86 20 134/81 (98) 96 12/23/18 16:00 98.8 83 19 124/78 (93) 99 Intake and Output 12/23/18 12/24/18 19:00 07:00 Intake Total 1440 ml 220 ml Output Total 500 ml Balance 1440 ml -280 ml Intake Oral 1440 ml IV Total 220 ml Output Urine Total 500 ml # Voids 3 Laboratory Tests 12/24/18 06:30: White Blood Count 6.3, Red Blood Count 4.26L, Hemoglobin 12.9L, Hematocrit 38.8L , Mean Corpuscular Volume 91, Mean Corpuscular Hemoglobin 30.3, Mean Corpuscular Hemoglobin Concent 33.2, Red Cell Distribution Width 13.0, Platelet Count 177, Mean Platelet Volume 6.0L, Neutrophils (%) (Auto) 54.5, Lymphocytes ( %) (Auto) 33.9, Monocytes (%) (Auto) 8.8, Eosinophils (%) (Auto) 2.1, Basophils (%) (Auto) 0.7, Sodium Level 138, Potassium Level 4.1, Chloride Level 100, Carbon Dioxide Level 33H, Anion Gap 5, Blood Urea Nitrogen 17, Creatinine 1.2, Estimat Glomerular Filtration Rate > 60, Glucose Level 97, Calcium Level 8.4L Height (Feet): 5 Height (Inches): 10.00 Weight (Pounds): 489 General Appearance: lethargic EENT: normal ENT inspection Neck: normal alignment Cardiovascular: normal peripheral pulses, normal rate, regular rhythm Respiratory/Chest: chest wall non-tender, lungs clear, normal breath sounds Abdomen: normal bowel sounds, distended Extremities: normal inspection Edema: 1+ Arm (L), 1+ Arm (R), 1+ Leg (L), 1+ Leg (R), 1+ Pedal (L), 1+ Pedal ( R), 1+ Generalized Edema: trace edema Neurologic: motor weakness Skin: normal pigmentation, warm/dry Octavio Nicolemy FlorinTesha DO December 24, 2018 14:36
--- NOTE | 2018-12-24 15:00 | NUR ---
NURSE NOTES: Patient up ambulating in guarte and to bathroom, gait slow/steady, denies dizziness. Will continue to monitor.
--- NOTE | 2018-12-24 15:06 | NUR ---
[employer] SI:ABDOMINAL WALL CELLULITES VS: BP 106/54, P 77, T 98.4, RR 20, SpO2 94 RBC 4.26, H&H 12.9/38.8 IS:CEFAZOLIN SODIUM 110ml IVPB DILAUDID 3mg GABAPENTIN 600mg PLAVIX 75mg KEPPRA 1,000mg MED/SURG STATUS
--- NOTE | 2018-12-24 15:30 | Progress Note ---
DATE: 12/24/2018 SUBJECTIVE: This is a 53-year-old patient with cerebrovascular accident. The patient has decrease in his mentation status post rule out cerebrovascular accident. High levels of anxiety, depression worsened by stress of his medical illness. That is why, his attending has requested daily psychiatric consultation. MENTAL STATUS EXAMINATION: This is a 53-year-old male. Appearance is disheveled. Attitude, irritable and agitated. Affect, guarded and restricted. Intellect poor. Mood depressed and anxious. Motor activity, psychomotor agitation. Attention span is poor. Orientation x2. Speech is normal volume, fluent. Thought process, linear, goal directed. Thought content, denies auditory or visual hallucinations or delusions. No signs of any suicidal or homicidal thoughts. Insight and judgment is poor. DIAGNOSIS: Major depressive disorder, mild, recurrent, without psychotic features, rule out generalized anxiety disorder. PLAN: Treat him with Cymbalta 30 mg daily, Neurontin 600 mg 3 times a day, and also trazodone 100 at bedtime. Provide him with 20 minutes of cognitive behavioral therapy to help him identify his automatic negative help him convert those negative thoughts to more positive thoughts to reduce depression, anxiety, and mood lability and help him have more adaptive behavioral pattern. Chart reviewed. Discussed with staff. Seen and assessed at bedside. Laney Mcghee M.D. DR: GEENA JOB#: [id number] CC:
[2018-12-24 16:00] VITALS: BP 125/81
--- NOTE | 2018-12-24 17:30 | NUR ---
NURSE NOTES: Right PICC line dressing changed. Surrounding skin intact, no redness or swelling or bleeding noted. ABD and BLE dressing remain CDI. Will continue to monitor.
--- NOTE | 2018-12-24 19:30 | NUR ---
HAND-OFF: Report given to Kirsty RN.
--- NOTE | 2018-12-24 19:40 | NUR ---
NURSE NOTES: RECEIVED PT FROM MICAELA HARPER. PT IS AWAKE, AAO X4. PT IS ON ROOM AIR, UNLABORED BREATHING. PICC LINE ON RIGHT UPPER ARM DRESSING IS DRY AND INTACT, DRESSING CHANGED ON 12/24, ONLY ONE LUMEN IS PATENT, CHARGE NURSE AWARE. DRESSINGS ON BILATERAL LEGS AND ABDOMEN ARE INTACT. BED IS LOCKED AT THE LOWEST POSITION, BED ALARMS ACTIVE, SIDE RAILS UP X2 AND CALL LIGHT IS WITHIN REACH. WILL CONTINUE TO MONITOR.
--- NOTE | 2018-12-24 19:43 | Diagnostic Imaging Report ---
APPROVED REPORT CPT Code: 78660 Present Symptoms Comments: Screening Risk Factors Obesity Technically difficult study. Limited visualization (Thigh and knee). BILATERAL: Imaging reveals a patent deep venous system bilaterally. There is no evidence of thrombus within the common femoral, proximal superficial femoral, and popliteal veins. The greater saphenous veins are within normal limits. Doppler indicates normal spontaneous flow within these segments. The mid-distal thigh and calf area were not visualized.
[2018-12-24 20:00] VITALS: BP 136/83
[2018-12-24] MEDS: Dyna-Hex 2% Top Sol 2oz TOPIC SCH (20:00)
--- NOTE | 2018-12-24 22:01 | Neurology Progress Note ---
Interim History Interim History ROS Limited/Unobtainable: No Complaints: Left sided weakness/ spasticity Events: Stable, no seizures, hand strength stable Interim History This visit was performed on December 24, [address] Amador Brewster Objective Physical Exam Last Vital Signs Date Time Temp Pulse Resp B/P (MAP) Pulse Ox O2 Delivery O2 Flow Rate FiO2 12/24/18 16:00 98.6 80 20 125/81 (96) 94 12/24/18 09:00 Room Air 12/20/18 20:42 21 Laboratory Tests Test 12/24/18 06:30 White Blood Count 6.3 K/UL (4.8-10.8) Red Blood Count 4.26 M/UL (4.70-6.10) L Hemoglobin 12.9 G/DL (14.2-18.0) L Hematocrit 38.8 % (42.0-52.0) L Mean Corpuscular Volume 91 FL (80-99) Mean Corpuscular Hemoglobin 30.3 PG (27.0-31.0) Mean Corpuscular Hemoglobin Concent 33.2 G/DL (32.0-36.0) Red Cell Distribution Width 13.0 % (11.6-14.8) Platelet Count 177 K/UL (150-450) Mean Platelet Volume 6.0 FL (6.5-10.1) L Neutrophils (%) (Auto) 54.5 % (45.0-75.0) Lymphocytes (%) (Auto) 33.9 % (20.0-45.0) Monocytes (%) (Auto) 8.8 % (1.0-10.0) Eosinophils (%) (Auto) 2.1 % (0.0-3.0) Basophils (%) (Auto) 0.7 % (0.0-2.0) Sodium Level 138 MMOL/L (136-145) Potassium Level 4.1 MMOL/L (3.5-5.1) Chloride Level 100 MMOL/L (98-107) Carbon Dioxide Level 33 MMOL/L (21-32) H Anion Gap 5 mmol/L (5-15) Blood Urea Nitrogen 17 mg/dL (7-18) Creatinine 1.2 MG/DL (0.55-1.30) Estimat Glomerular Filtration Rate > 60 mL/min (>60) Glucose Level 97 MG/DL (74-106) Calcium Level 8.4 MG/DL (8.5-10.1) L General: well developed, well nourished, other - Morbidly obese Head: normocophalic Neck: no rigidity EENT: benign Neurologic Exam Mental Status: awake, alert, oriented x4, normal cognition, good mathematical skills, normal recent memory, normal remote memory, preserved visuospatial function Speech: normal speech, no dysarthia Language: normal language, no aphasia Cranial Nerve II: fundus normal, visual bonilla, no papilledema Cranial Nerves III, IV, : PERRLA, EOMI, pupils Cranial Nerve V: normal facial sensations, temporales function normal, masseters function normal, pterygoids function normal Cranial Nerve VII: normal facial expressions, other Cranial Nerve VIII: normal hearing, no nystagmus Cranial Nerve IX: normal palate elevation, gag response Cranial Nerve X: no voice hoarseness Cranial Nerve XI: SCM symmetric, trapezii function normal Cranial Nerve XII: tongue midline, no tongue atrophy/fasciculations Motor System: normal muscle tone, no involuntary movement, no muscle wasting Sensory: normal pinprick, normal light touch, normal position sense, normal graphesthesia Coordination: normal heel to villarreal bilaterally, negative Romberg test Deep Tendon Reflexes: 1+ bicep (L), 1+ bicep (R), 1+ tricep (L), 1+ tricep (R) , 1+ brachioradialis (L), 1+ brachioradialis (R), 1+ knee (L), 1+ knee (R), 1+ ankle (L), 1+ ankle (R) Reflexes: flexor plantar (L), flexor plantar (R); extensor plantar (L), extensor plantar (R) Stance: other - Broad based Gait: stable Objective Left arm, predominantly hand weakness at this time. Alert and oriented, mood stable, calmer, less spasticity/ rigidity in left arm. Ambulatory with cellulitis persisting on RLE - ambulates each day, broad based gait with weakness bilaterally but greater on the left He does not have proximal left arm weakness at this time or facial weakness, tongue still but less deviated on exam . Impression/Recommendations Problems: (1) Seizures Assessment & Plan: Keppra 1000mg BID PO Maintain SBP<140 Q4 Hour Neuro Checks Ativan 2mg PRN for seizure activity CT Head w/o contrast when able to rule out CVA - also for consideration of MRI if CT negative. - low suspicion of CVA due to normotensive status without risk factors of elevated BP/ HgBA1c or thyroid dysfunction. Na 135-145 Continue pain management - Lyrica 50mg TID - May increase to 75mg TID as needed Continue Gabapentin 600mg TID (2) Morbid obesity (3) COPD (chronic obstructive pulmonary disease) (4) Uncontrolled seizures (5) Left-sided weakness (6) Knee osteomyelits, right Status: stable, progressing Recommendations Continue neuroleptic meds as per psychiatry Some increased agitation - consider additiona 25mg Seroquel PRN for agitation Maintain SBP<140 PT/OT evals CT/ MRI follow up to rule out stroke - wait list for transfer and open MRI scanner EEG Continue Lyrica 75mg TID---will increase as needed Q4 hour Neuro Obs - NO NIGHTTIME OBS if stable Prevent delirium Maintain regular sleep schedule and reduce nighttime activities such as observations (if unnecessary) Check LFTS prior to D/C and encourage follow up if they remain elevated .May need to revise Vicky Fonseca N.P. December 24, 2018 22:01
[2018-12-24] MEDS: Atorvastatin 80mg tab ORAL SCH (22:02)
[2018-12-24] MEDS: TraZODone 100mg tab ORAL SCH (22:02)
--- NOTE | 2018-12-24 22:13 | Cardiology Progress Note ---
Assessment/Plan Assessment/Plan 1. Morbid obesity with pannus formation, normal LV systolic and diastolic function per recent echo, clear for "removal of pannus", with the risk of coronary artery events perioperatively estimated to be less than 1%. 2. Chronic venous insufficiency. 3. Hx of HTN, diet controlled. 4. COPD 5. Seizure D/O Subjective Subjective Deniers chest pain or SOB. Clinically the same. Objective Last 24 Hour Vital Signs Date Time Temp Pulse Resp B/P (MAP) Pulse Ox O2 Delivery O2 Flow Rate FiO2 12/24/18 16:00 98.6 80 20 125/81 (96) 94 12/24/18 12:00 98.4 77 20 106/54 (71) 94 12/24/18 09:00 Room Air 12/24/18 08:00 98.3 85 20 123/66 (85) 95 12/24/18 04:13 97.6 85 18 115/68 (84) 98 12/24/18 00:00 98.6 76 18 130/69 (89) Intake and Output 12/23/18 12/24/18 19:00 07:00 Intake Total 1440 ml 220 ml Output Total 500 ml Balance 1440 ml -280 ml Intake Oral 1440 ml IV Total 220 ml Output Urine Total 500 ml # Voids 3 2D Echo: Normal LV systolic function, RVSP 34 mmHg, RAP elevated at 15 mmHg Laboratory Tests Test 12/24/18 06:30 White Blood Count 6.3 K/UL (4.8-10.8) Red Blood Count 4.26 M/UL (4.70-6.10) L Hemoglobin 12.9 G/DL (14.2-18.0) L Hematocrit 38.8 % (42.0-52.0) L Mean Corpuscular Volume 91 FL (80-99) Mean Corpuscular Hemoglobin 30.3 PG (27.0-31.0) Mean Corpuscular Hemoglobin Concent 33.2 G/DL (32.0-36.0) Red Cell Distribution Width 13.0 % (11.6-14.8) Platelet Count 177 K/UL (150-450) Mean Platelet Volume 6.0 FL (6.5-10.1) L Neutrophils (%) (Auto) 54.5 % (45.0-75.0) Lymphocytes (%) (Auto) 33.9 % (20.0-45.0) Monocytes (%) (Auto) 8.8 % (1.0-10.0) Eosinophils (%) (Auto) 2.1 % (0.0-3.0) Basophils (%) (Auto) 0.7 % (0.0-2.0) Sodium Level 138 MMOL/L (136-145) Potassium Level 4.1 MMOL/L (3.5-5.1) Chloride Level 100 MMOL/L (98-107) Carbon Dioxide Level 33 MMOL/L (21-32) H Anion Gap 5 mmol/L (5-15) Blood Urea Nitrogen 17 mg/dL (7-18) Creatinine 1.2 MG/DL (0.55-1.30) Estimat Glomerular Filtration Rate > 60 mL/min (>60) Glucose Level 97 MG/DL (74-106) Calcium Level 8.4 MG/DL (8.5-10.1) L Objective HEENT: Atraumatic and normocephalic. Anicteric. Pupils are equal, round, and reactive to light and accommodation. NECK: JVP cannot be assessed due to obesity. No carotid bruit. CARDIOVASCULAR: Normal S1, S2. Regular rate and rhythm. No murmurs, gallops, or rubs. PMI is at fourth intercostal space at the midclavicular line. LUNGS: Clear to auscultation bilaterally. ABDOMEN: Distended due to pannus formation, cannot palpate hepatosplenomegaly. Positive bowel sounds. EXTREMITIES: No lower extremity edema, clubbing or cyanosis. Carlos Martins MD December 24, 2018 22:13
--- NOTE | 2018-12-24 22:45 | Electroencephalogram ---
DATE OF PROCEDURE: 12/23/2018 REQUESTING PHYSICIAN: Amador Brewster M.D. READING PHYSICIAN: Kar Soriano M.D. PROCEDURE PERFORMED: Electroencephalogram. HISTORY: This EEG was performed on a 53-year-old gentleman with a history of morbid obesity and an altered mental state. The purpose of this EEG was to evaluate the patient for ongoing ictal or interictal phenomena. TECHNICAL NOTE: This EEG was performed on a [employer] with electrodes placed on the scalp according to the International 10-20 system. [id number] and [id number] montages were used. The EEG was technically satisfactory and was performed in the awake, drowsy, and sleep states. OBSERVATIONS: In the best awake state, the background activity consisted of 8-9 Hz alpha activity with some intermixed theta frequencies. Drowsiness was characterized by dissolution of the alpha rhythm and the appearance of slower frequencies in the 5-6 Hz theta range. During drowsiness, bilateral frontotemporal polymorphic delta activity was seen sometimes occurring in brief runs. Stage II sleep was characterized by further slowing of the background in the delta and theta range, the presence of vertex waves, and 12 Hz sleep spindles. No focal abnormalities or epileptiform discharges were seen. IMPRESSION: This is an abnormal EEG characterized by: 1. An unusually large amount of theta activity seen during the reportedly awake state. 2. The presence of bilateral frontotemporal polymorphic delta activity, sometimes occurring in runs, seen during drowsiness. COMMENT: This study is consistent with an encephalopathy of a mild degree. Clinical correlation is recommended. Kar Soriano M.D., M.S.P.H. DR: CYNTHIA JOB#: [id number] [facility] HOSPITALLamberto
[2018-12-25] VITALS: BP 149/94
[2018-12-25] MEDS: ceFAZolin sod 2 GM in D5W 110 ML IVPB SCH ×2 (00:24→05:32)
[2018-12-25 04:00] VITALS: BP 111/61
--- NOTE | 2018-12-25 06:00 | NUR ---
NURSE NOTES: CHANGED DRESSINGS ON BILATERAL LEGS AND ABDOMEN. DRY AND INTACT.
--- NOTE | 2018-12-25 07:29 | NUR ---
HAND-OFF: Report given to MICAELA RODRIGUEZ. PT IN STABLE CONDITION.
[2018-12-25 08:00] VITALS: BP 147/84
--- NOTE | 2018-12-25 08:36 | NUR ---
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 Current plan of care will be followed,
--- NOTE | 2018-12-25 08:55 | General Progress Note ---
Assessment/Plan Status: stable, progressing Assessment/Plan: (1) Lumbar DDD (2) Lumbar Spondylosis (3) Lumbar Radiculopathy (4) Morbid Obesity (5) Right knee pain (6) Right knee OA h/o ORIF We will continue patient on Dilaudid as needed. D/w Dr. Magaña and he concurred. Subjective Date patient seen: December 25, 2018 Time patient seen: 07:15 - am Allergies: Coded Allergies: ASPIRIN (Verified Allergy, Unknown, 07/14/18) KETOROLAC (Verified Allergy, Unknown, 07/14/18) PENICILLINS (Verified Allergy, Unknown, 12/23/18) tolerated Ancef on 08/2018 Uncoded Allergies: PENICILIN (Allergy, Unknown, 12/14/18) Subjective REVIEW OF SYSTEMS: Denies rash, fever, chills, sweating, dizziness, drowsiness, blurred vision, sore throat, change in weight. No nausea, vomiting, diarrhea, or blood in the stool or urine. No bowel or bladder incontinence. No dysuria. He is complaining of low back pain SUBJECTIVE: Patient showing no signs of pain or distress. Continues to c/o pain and has used 6 doses of Dilaudid in the last 24hrs. No new complaints at this time. Objective Last 24 Hour Vital Signs Date Time Temp Pulse Resp B/P (MAP) Pulse Ox O2 Delivery O2 Flow Rate FiO2 12/25/18 04:00 98.7 80 20 111/61 (78) 95 12/25/18 00:00 98.5 97 18 149/94 (112) 98 12/24/18 21:00 Room Air 12/24/18 20:00 99.0 79 18 136/83 (100) 95 12/24/18 16:00 98.6 80 20 125/81 (96) 94 12/24/18 12:00 98.4 77 20 106/54 (71) 94 12/24/18 09:00 Room Air Intake and Output 12/24/18 12/25/18 19:00 07:00 Intake Total 1180 ml 220 ml Balance 1180 ml 220 ml Intake Oral 960 ml IV Total 220 ml 220 ml # Voids 3 3 Height (Feet): 5 Height (Inches): 10.00 Weight (Pounds): 489 Objective GENERAL: Alert, awake, and oriented x3. LUNGS: Decreased breath sounds bilaterally. HEART: S1 and S2, regular. ABDOMEN: Obese. EXTREMITIES: No cyanosis. No clubbing. No edema. NEURO: No changes. Eliezer Nicole December 25, 2018 08:55
[2018-12-25] MEDS: Lyrica 75mg cap ORAL SCH ×3 (09:00→17:31)
--- NOTE | 2018-12-25 09:25 | Infectious Diseases Prog Note ---
Assessment/Plan Assessment/Plan ssessment: B/l Leg cellulitis and panniculitis- in the setting of chronic venous stasis L side weakness/spasticity- thought be 2ry to seizures- r/O CVA- no active infectious process at present (pt afebrile- doubt meningitis at this moment) Afebrile No leukocytosis -CXR: No acute findings CVA HTN bipolar disorder w/ psychotic features tobacco abuse anxiety disorder chronic pain CHF seizure disorder COPD morbid obesity Dm2 HTN SN[facility] resident Plan: IV Dapto d# 1 ( pt Cr increased 30% will avoid Vanco) DC Bactrim #4/14 and add IV Ancef #3/14 for cellulitis -f/u cx -Monitor CBC/CMP, temperatures -neuro f/u- plan for CT head, include neck as lump in back of neck; however pt did not fit on CT scan machine due to weight -aspiration precautions -wound care per hospital protocol Subjective Allergies: Coded Allergies: ASPIRIN (Verified Allergy, Unknown, 07/14/18) KETOROLAC (Verified Allergy, Unknown, 07/14/18) PENICILLINS (Verified Allergy, Unknown, 12/23/18) tolerated Ancef on 08/2018 Subjective cellulitis is not improving afebrile Objective Vital Signs Last 24 Hour Vital Signs Date Time Temp Pulse Resp B/P (MAP) Pulse Ox O2 Delivery O2 Flow Rate FiO2 12/25/18 04:00 98.7 80 20 111/61 (78) 95 12/25/18 00:00 98.5 97 18 149/94 (112) 98 12/24/18 21:00 Room Air 12/24/18 20:00 99.0 79 18 136/83 (100) 95 12/24/18 16:00 98.6 80 20 125/81 (96) 94 12/24/18 12:00 98.4 77 20 106/54 (71) 94 Height (Feet): 5 Height (Inches): 10.00 Weight (Pounds): 489 HEENT: anicteric Respiratory/Chest: normal breath sounds Cardiovascular: regular rhythm Abdomen: no mass Laboratory Tests Test 12/25/18 09:15 White Blood Count Pending Red Blood Count Pending Hemoglobin Pending Hematocrit Pending Mean Corpuscular Volume Pending Mean Corpuscular Hemoglobin Pending Mean Corpuscular Hemoglobin Concent Pending Red Cell Distribution Width Pending Platelet Count Pending Mean Platelet Volume Pending Neutrophils (%) (Auto) Pending Lymphocytes (%) (Auto) Pending Monocytes (%) (Auto) Pending Eosinophils (%) (Auto) Pending Basophils (%) (Auto) Pending Sodium Level Pending Potassium Level Pending Chloride Level Pending Carbon Dioxide Level Pending Blood Urea Nitrogen Pending Creatinine Pending Estimat Glomerular Filtration Rate Pending Glucose Level Pending Calcium Level Pending Current Medications Medications (Trade) Dose Ordered Sig/Luis Route PRN Reason Start Time Stop Time Status Last Admin Dose Admin Acetaminophen (Tylenol) 650 mg Q4H PRN ORAL fever 12/15/18 14:54 01/14/19 14:53 Atorvastatin Calcium (Lipitor) 80 mg BEDTIME ORAL 12/15/18 21:00 01/14/19 20:59 12/24/18 22:02 Cefazolin Sodium 2 gm/Dextrose 110 ml @ 220 mls/hr Q8HR IVPB 12/23/18 17:30 12/30/18 17:29 12/25/18 05:32 Chlorhexidine Gluconate (Ruby-Hex 2%) 1 applic DAILY@2000 TOPIC 12/22/18 20:00 01/21/19 19:59 12/22/18 21:58 Clonidine HCl (Catapres Tab) 0.1 mg Q4H PRN ORAL For High Blood Pressure 12/15/18 14:56 01/14/19 14:55 Clopidogrel Bisulfate (Plavix) 75 mg DAILY ORAL 12/16/18 09:00 01/14/19 08:59 12/24/18 09:32 Dextrose (Dextrose 50%) 25 ml Q30M PRN IV Hypoglycemia 12/15/18 15:15 01/13/19 23:44 Dextrose (Dextrose 50%) 50 ml Q30M PRN IV Hypoglycemia 12/15/18 15:15 01/13/19 23:44 Duloxetine HCl (Cymbalta) 30 mg DAILY ORAL 12/16/18 09:00 01/14/19 08:59 12/24/18 09:33 Furosemide (Lasix) 20 mg ONCE IV 12/21/18 17:00 01/20/19 16:59 12/24/18 17:47 Furosemide (Lasix) 20 mg Q6HR IV 12/22/18 00:00 01/21/19 00:00 12/25/18 05:26 Gabapentin (Neurontin) 600 mg THREE TIMES A DAY ORAL 12/15/18 18:00 01/14/19 08:59 12/24/18 17:49 Heparin Sodium (Porcine) (Heparin 5000 units/ml) 5,000 units EVERY 12 HOURS SUBQ 12/15/18 21:00 01/14/19 08:59 12/24/18 22:12 Hydromorphone HCl (Dilaudid) 3 mg Q4H PRN IVP Severe Pain (Pain Scale 7-10) 12/25/18 10:00 01/01/19 09:59 Levetiracetam (Keppra) 1,000 mg Q12HR ORAL 12/19/18 09:00 01/18/19 08:59 12/24/18 22:02 Nitroglycerin (Ntg) 0.4 mg Q5M X 3 DOSES PRN SL Prn Chest Pain 12/15/18 14:45 01/13/19 23:44 Ondansetron HCl (Zofran) 4 mg Q6H PRN IVP Nausea & Vomiting 12/15/18 14:55 01/14/19 14:54 12/17/18 10:19 Polyethylene Glycol (Miralax) 17 gm HSPRN PRN ORAL Constipation 12/15/18 14:55 01/14/19 14:54 Pregabalin (Lyrica) 75 mg THREE TIMES A DAY ORAL 12/22/18 09:00 01/19/19 22:59 12/24/18 17:48 Promethazine HCl/ Codeine (Phenergan with Codeine) 5 ml Q4H PRN ORAL For Cough 12/15/18 14:55 01/14/19 14:54 Trazodone HCl (Desyrel) 100 mg BEDTIME ORAL 12/15/18 21:00 01/14/19 20:59 12/24/18 22:02 Trimethoprim/ Sulfamethoxazole (Bactrim-DS) 1 tab Q12HR ORAL 12/22/18 21:00 12/28/18 17:59 12/24/18 22:02 Harry Frank MD December 25, 2018 09:25
[2018-12-25 09:31] LABS: ANION GAP 3 mmol/L (5-15); BLOOD UREA NITROGEN 18 mg/dL (7-18); CALCIUM 8.8 MG/DL (8.5-10.1); CARBON DIOXIDE 35 MMOL/L (21-32); CHLORIDE 100 MMOL/L (98-107); CREATININE 1.3 MG/DL (0.55-1.30); POTASSIUM 3.7 MMOL/L (3.5-5.1); SODIUM 138 MMOL/L (136-145)
[2018-12-25] MEDS: DULoxetine 30mg cap ORAL SCH (09:44)
[2018-12-25] MEDS: Bactrim-DS 1 tab ORAL SCH (09:44)
[2018-12-25] MEDS: Heparin 5000 units/ml inj SUBQ SCH ×2 (09:46→20:42)
[2018-12-25 10:00] LABS: BASOPHILS % (AUTO) 0.8 % (0.0-2.0); EOSINOPHILS % (AUTO) 2.3 % (0.0-3.0); HEMATOCRIT 40.4 % (42.0-52.0); HEMOGLOBIN 13.5 G/DL (14.2-18.0); LYMPHOCYTES % (AUTO) 30.8 % (20.0-45.0); MEAN CORPUSCULAR VOLUME 91 FL (80-99); MONOCYTES % (AUTO) 7.4 % (1.0-10.0); NEUTROPHILS % (AUTO) 58.7 % (45.0-75.0); PLATELET COUNT 205 K/UL (150-450); RED BLOOD COUNT 4.42 M/UL (4.70-6.10); RED CELL DISTRIBUTION WIDTH 12.9 % (11.6-14.8); WHITE BLOOD COUNT 5.5 K/UL (4.8-10.8)
--- NOTE | 2018-12-25 11:20 | NUR ---
NURSE NOTES: Blood draw taken to lab. Pt belligerent during care. Id seen pt did not want bandages removed, for skin . Bandages changed on previous shift. Both lumens on picc line are not functioning. Current plan care will be followed . Misa will take over care for pt pain medications given.
--- NOTE | 2018-12-25 11:24 | NUR ---
HAND-OFF: Report given to Misa HINOJOSA.
[2018-12-25 12:00] VITALS: BP 128/71
--- NOTE | 2018-12-25 12:03 | NUR ---
ST NOTE: ST WEEKLY PT SEEN 3 TIME, MET PO INTAKE GOALS, NURSING STAFF MET ASPIRATION PRECAUTIONS GOALS. CONTINUE SKILLED ST SERVICE.
--- NOTE | 2018-12-25 13:01 | Pulmonology Progress Note ---
Assessment/Plan Problems: (1) Morbid obesity (2) Peripheral edema (3) Cellulitis (4) Seizures (5) Cerebrovascular accident (6) Left-sided weakness (7) COPD (chronic obstructive pulmonary disease) (8) Right heart failure (9) Lumbar spondylosis (10) ADALBERTO (obstructive sleep apnea) Assessment/Plan got PICC line all meds /notes reviewed start on laxis and bactrim Ds plastic surgery contacted, will do the procedure after clearance by cardio. I cleared him as pulmonary. pt/ot respiratory treatment titrate fio2 to sat of 92% dvt prophylaxis awaiting for surgery to be scheduled. Subjective ROS Limited/Unobtainable: No Constitutional: Reports: no symptoms HEENT: Repors: no symptoms Allergies: Coded Allergies: ASPIRIN (Verified Allergy, Unknown, 07/14/18) KETOROLAC (Verified Allergy, Unknown, 07/14/18) PENICILLINS (Verified Allergy, Unknown, 12/23/18) tolerated Ancef on 08/2018 Objective Last 24 Hour Vital Signs Date Time Temp Pulse Resp B/P (MAP) Pulse Ox O2 Delivery O2 Flow Rate FiO2 12/25/18 12:00 98.8 76 18 128/71 (90) 93 12/25/18 09:00 Room Air 12/25/18 08:00 98.1 61 18 147/84 (105) 93 12/25/18 04:00 98.7 80 20 111/61 (78) 95 12/25/18 00:00 98.5 97 18 149/94 (112) 98 12/24/18 21:00 Room Air 12/24/18 20:00 99.0 79 18 136/83 (100) 95 12/24/18 16:00 98.6 80 20 125/81 (96) 94 Intake and Output 12/24/18 12/25/18 19:00 07:00 Intake Total 1180 ml 220 ml Balance 1180 ml 220 ml Intake Oral 960 ml IV Total 220 ml 220 ml # Voids 3 3 Objective HEENT: normocephalic, atraumatic Respiratory/Chest: chest wall non-tender, lungs clear Cardiovascular: normal peripheral pulses, normal rate Abdomen: normal bowel sounds, no organomegaly, massive fat on abdomen Extremities: no cyanosis Skin: no lesions Laboratory Tests 12/25/18 09:15: White Blood Count 5.5, Red Blood Count 4.42L, Hemoglobin 13.5L, Hematocrit 40.4L , Mean Corpuscular Volume 91, Mean Corpuscular Hemoglobin 30.5, Mean Corpuscular Hemoglobin Concent 33.3, Red Cell Distribution Width 12.9, Platelet Count 205, Mean Platelet Volume 5.7L, Neutrophils (%) (Auto) 58.7, Lymphocytes ( %) (Auto) 30.8, Monocytes (%) (Auto) 7.4, Eosinophils (%) (Auto) 2.3, Basophils (%) (Auto) 0.8, Sodium Level 138, Potassium Level 3.7, Chloride Level 100, Carbon Dioxide Level 35H, Anion Gap 3L, Blood Urea Nitrogen 18, Creatinine 1.3, Estimat Glomerular Filtration Rate 57.3, Glucose Level 147H, Calcium Level 8.8 Current Medications Medications (Trade) Dose Ordered Sig/Luis Route PRN Reason Start Time Stop Time Status Last Admin Dose Admin Acetaminophen (Tylenol) 650 mg Q4H PRN ORAL fever 12/15/18 14:54 01/14/19 14:53 Atorvastatin Calcium (Lipitor) 80 mg BEDTIME ORAL 12/15/18 21:00 01/14/19 20:59 12/24/18 22:02 Chlorhexidine Gluconate (Ruby-Hex 2%) 1 applic DAILY@2000 TOPIC 12/22/18 20:00 01/21/19 19:59 12/22/18 21:58 Clonidine HCl (Catapres Tab) 0.1 mg Q4H PRN ORAL For High Blood Pressure 12/15/18 14:56 01/14/19 14:55 Clopidogrel Bisulfate (Plavix) 75 mg DAILY ORAL 12/16/18 09:00 01/14/19 08:59 12/25/18 09:44 Daptomycin 900 mg/ Sodium Chloride 55 ml @ 110 mls/hr Q24H IV 12/25/18 14:00 01/01/19 13:59 Dextrose (Dextrose 50%) 25 ml Q30M PRN IV Hypoglycemia 12/15/18 15:15 01/13/19 23:44 Dextrose (Dextrose 50%) 50 ml Q30M PRN IV Hypoglycemia 12/15/18 15:15 01/13/19 23:44 Duloxetine HCl (Cymbalta) 30 mg DAILY ORAL 12/16/18 09:00 01/14/19 08:59 12/25/18 09:44 Furosemide (Lasix) 20 mg ONCE IV 12/21/18 17:00 01/20/19 16:59 12/24/18 17:47 Furosemide (Lasix) 20 mg Q6HR IV 12/22/18 00:00 01/21/19 00:00 12/25/18 12:29 Gabapentin (Neurontin) 600 mg THREE TIMES A DAY ORAL 12/15/18 18:00 01/14/19 08:59 12/25/18 12:28 Heparin Sodium (Porcine) (Heparin 5000 units/ml) 5,000 units EVERY 12 HOURS SUBQ 12/15/18 21:00 01/14/19 08:59 12/25/18 09:46 Hydromorphone HCl (Dilaudid) 3 mg Q4H PRN IVP Severe Pain (Pain Scale 7-10) 12/25/18 10:00 01/01/19 09:59 12/25/18 10:35 Levetiracetam (Keppra) 1,000 mg Q12HR ORAL 12/19/18 09:00 01/18/19 08:59 12/25/18 09:45 Nitroglycerin (Ntg) 0.4 mg Q5M X 3 DOSES PRN SL Prn Chest Pain 12/15/18 14:45 01/13/19 23:44 Ondansetron HCl (Zofran) 4 mg Q6H PRN IVP Nausea & Vomiting 12/15/18 14:55 01/14/19 14:54 12/17/18 10:19 Polyethylene Glycol (Miralax) 17 gm HSPRN PRN ORAL Constipation 12/15/18 14:55 01/14/19 14:54 Pregabalin (Lyrica) 75 mg THREE TIMES A DAY ORAL 12/22/18 09:00 01/19/19 22:59 12/25/18 12:29 Promethazine HCl/ Codeine (Phenergan with Codeine) 5 ml Q4H PRN ORAL For Cough 12/15/18 14:55 01/14/19 14:54 Trazodone HCl (Desyrel) 100 mg BEDTIME ORAL 12/15/18 21:00 01/14/19 20:59 12/24/18 22:02 Bill Dixon MD December 25, 2018 13:01
--- NOTE | 2018-12-25 14:19 | General Progress Note ---
Assessment/Plan Problem List: (1) Abdominal pannus ICD Codes: E65 - Localized adiposity SNOMED: 9937480477090 (2) Peripheral edema ICD Codes: R60.9 - Edema, unspecified SNOMED: 686945095 (3) Abdominal wall cellulitis ICD Codes: L03.311 - Cellulitis of abdominal wall SNOMED: 30946868 (4) Leg pain ICD Codes: M79.606 - Pain in leg, unspecified SNOMED: 68961180 (5) COPD (chronic obstructive pulmonary disease) ICD Codes: J44.9 - Chronic obstructive pulmonary disease, unspecified SNOMED: 87554960 (6) Seizures ICD Codes: R56.9 - Unspecified convulsions SNOMED: 70224378 (7) Morbid obesity ICD Codes: E66.01 - Morbid (severe) obesity due to excess calories SNOMED: 910572657 (8) Cerebrovascular accident ICD Codes: I63.9 - Cerebral infarction, unspecified SNOMED: 466085640 (9) Left-sided weakness ICD Codes: R53.1 - Weakness SNOMED: 363153389 Status: stable, progressing Assessment/Plan: pt diet neuro f/u wound care abx pain control cbc bmp am dc to snf Subjective Constitutional: Reports: weakness Allergies: Coded Allergies: ASPIRIN (Verified Allergy, Unknown, 07/14/18) KETOROLAC (Verified Allergy, Unknown, 07/14/18) PENICILLINS (Verified Allergy, Unknown, 12/23/18) tolerated Ancef on 08/2018 All Systems: reviewed and negative except above Subjective sleepy calm Objective Last 24 Hour Vital Signs Date Time Temp Pulse Resp B/P (MAP) Pulse Ox O2 Delivery O2 Flow Rate FiO2 12/25/18 12:00 98.8 76 18 128/71 (90) 93 12/25/18 09:00 Room Air 12/25/18 08:00 98.1 61 18 147/84 (105) 93 12/25/18 04:00 98.7 80 20 111/61 (78) 95 12/25/18 00:00 98.5 97 18 149/94 (112) 98 12/24/18 21:00 Room Air 12/24/18 20:00 99.0 79 18 136/83 (100) 95 12/24/18 16:00 98.6 80 20 125/81 (96) 94 Intake and Output 12/24/18 12/25/18 19:00 07:00 Intake Total 1180 ml 220 ml Balance 1180 ml 220 ml Intake Oral 960 ml IV Total 220 ml 220 ml # Voids 3 3 Laboratory Tests 12/25/18 09:15: White Blood Count 5.5, Red Blood Count 4.42L, Hemoglobin 13.5L, Hematocrit 40.4L , Mean Corpuscular Volume 91, Mean Corpuscular Hemoglobin 30.5, Mean Corpuscular Hemoglobin Concent 33.3, Red Cell Distribution Width 12.9, Platelet Count 205, Mean Platelet Volume 5.7L, Neutrophils (%) (Auto) 58.7, Lymphocytes ( %) (Auto) 30.8, Monocytes (%) (Auto) 7.4, Eosinophils (%) (Auto) 2.3, Basophils (%) (Auto) 0.8, Sodium Level 138, Potassium Level 3.7, Chloride Level 100, Carbon Dioxide Level 35H, Anion Gap 3L, Blood Urea Nitrogen 18, Creatinine 1.3, Estimat Glomerular Filtration Rate 57.3, Glucose Level 147H, Calcium Level 8.8 Height (Feet): 5 Height (Inches): 10.00 Weight (Pounds): 489 General Appearance: alert EENT: normal ENT inspection Neck: normal alignment Cardiovascular: normal peripheral pulses, normal rate, regular rhythm Respiratory/Chest: chest wall non-tender, lungs clear, normal breath sounds Abdomen: normal bowel sounds, distended Extremities: normal inspection Edema: 1+ Arm (L), 1+ Arm (R), 1+ Leg (L), 1+ Leg (R), 1+ Pedal (L), 1+ Pedal ( R), 1+ Generalized Edema: trace edema Neurologic: responsive, motor weakness Skin: normal pigmentation, warm/dry Ernesto Nicole DO December 25, 2018 14:19
[2018-12-25] MEDS: NS IV SCH (14:28)
[2018-12-25] MEDS: DAPTOMYCIN IV SCH (14:28)
[2018-12-25 16:00] VITALS: BP 127/76
--- NOTE | 2018-12-25 16:00 | Progress Note ---
DATE: 12/25/2018 SUBJECTIVE: The patient rule out CVA, but he still has some high levels of anxiety, depression, mood lability worsened by stress of his medical illness. Still very irritable in approach on interview this morning. Very anxious and guarded on interview. MENTAL STATUS EXAMINATION: This is a 53-year-old male. Appearance is disheveled. Attitude, irritable and agitated. Affect, labile. Intellect poor. Mood, depressed and anxious. Motor activity, psychomotor agitation. Attention span is poor. Orientation x2. Speech is loud, agitated, irritable. Insight and judgment is poor. DIAGNOSIS: Major depressive disorder, mild, recurrent, without psychotic features, rule out generalized anxiety disorder. PLAN: Trazodone 100 mg at bedtime, Cymbalta 30 mg daily, Neurontin 600 mg 3 times a day. Provided him with 20 minutes of cognitive behavioral therapy to help him identify his automatic negative thoughts, help him convert those negative thoughts to more positive thoughts to reduce depression, anxiety, and mood lability to help him have more adaptive behavioral therapy. Chart reviewed. Discussed with staff. Seen and assessed in his room. Laney Mcghee M.D. DR: GEENA JOB#: [id number] CC:
--- NOTE | 2018-12-25 17:11 | NUR ---
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
--- NOTE | 2018-12-25 19:21 | NUR ---
HAND-OFF: Report given to Shira HINOJOSA.
--- NOTE | 2018-12-25 19:35 | NUR ---
NURSE NOTES: Pt received in bed, alert, bleeding from left lower leg because he said he was itching and scratched it, dressing cleaned and changed. call light within reach, able to make needs known, no c/o pain or signs of distress. will continue to monitor.
[2018-12-25 20:00] VITALS: BP 138/80
[2018-12-25] MEDS: Atorvastatin 80mg tab ORAL SCH (20:38)
[2018-12-25] MEDS: TraZODone 100mg tab ORAL SCH (20:38)
[2018-12-25] MEDS: Dyna-Hex 2% Top Sol 2oz TOPIC SCH (20:43)
--- NOTE | 2018-12-25 22:57 | Cardiology Progress Note ---
Assessment/Plan Assessment/Plan 1. Morbid obesity with pannus formation, normal LV systolic and diastolic function per recent echo, clear for "removal of pannus". 2. Chronic venous insufficiency. 3. Hx of HTN, diet controlled. 4. COPD 5. Seizure D/O Subjective Subjective Deniers chest pain or SOB. No cardiac events. Objective Last 24 Hour Vital Signs Date Time Temp Pulse Resp B/P (MAP) Pulse Ox O2 Delivery O2 Flow Rate FiO2 12/25/18 21:00 Room Air 12/25/18 20:00 98.7 83 18 138/80 (99) 94 12/25/18 16:00 98.9 82 19 127/76 (93) 98 12/25/18 12:00 98.8 76 18 128/71 (90) 93 12/25/18 09:00 Room Air 12/25/18 08:00 98.1 61 18 147/84 (105) 93 12/25/18 04:00 98.7 80 20 111/61 (78) 95 12/25/18 00:00 98.5 97 18 149/94 (112) 98 Intake and Output 12/24/18 12/25/18 19:00 07:00 Intake Total 1180 ml 220 ml Balance 1180 ml 220 ml Intake Oral 960 ml IV Total 220 ml 220 ml # Voids 3 3 2D Echo: Normal LV systolic function, RVSP 34 mmHg, RAP elevated at 15 mmHg Laboratory Tests Test 12/25/18 09:15 White Blood Count 5.5 K/UL (4.8-10.8) Red Blood Count 4.42 M/UL (4.70-6.10) L Hemoglobin 13.5 G/DL (14.2-18.0) L Hematocrit 40.4 % (42.0-52.0) L Mean Corpuscular Volume 91 FL (80-99) Mean Corpuscular Hemoglobin 30.5 PG (27.0-31.0) Mean Corpuscular Hemoglobin Concent 33.3 G/DL (32.0-36.0) Red Cell Distribution Width 12.9 % (11.6-14.8) Platelet Count 205 K/UL (150-450) Mean Platelet Volume 5.7 FL (6.5-10.1) L Neutrophils (%) (Auto) 58.7 % (45.0-75.0) Lymphocytes (%) (Auto) 30.8 % (20.0-45.0) Monocytes (%) (Auto) 7.4 % (1.0-10.0) Eosinophils (%) (Auto) 2.3 % (0.0-3.0) Basophils (%) (Auto) 0.8 % (0.0-2.0) Sodium Level 138 MMOL/L (136-145) Potassium Level 3.7 MMOL/L (3.5-5.1) Chloride Level 100 MMOL/L (98-107) Carbon Dioxide Level 35 MMOL/L (21-32) H Anion Gap 3 mmol/L (5-15) L Blood Urea Nitrogen 18 mg/dL (7-18) Creatinine 1.3 MG/DL (0.55-1.30) Estimat Glomerular Filtration Rate 57.3 mL/min (>60) Glucose Level 147 MG/DL (74-106) H Calcium Level 8.8 MG/DL (8.5-10.1) Objective HEENT: Atraumatic and normocephalic. Anicteric. Pupils are equal, round, and reactive to light and accommodation. NECK: JVP cannot be assessed due to obesity. No carotid bruit. CARDIOVASCULAR: Normal S1, S2. Regular rate and rhythm. No murmurs, gallops, or rubs. PMI is at fourth intercostal space at the midclavicular line. LUNGS: Clear to auscultation bilaterally. ABDOMEN: Distended due to pannus formation, cannot palpate hepatosplenomegaly. Positive bowel sounds. EXTREMITIES: No lower extremity edema, clubbing or cyanosis. Carlos Martins MD December 25, 2018 22:57
--- NOTE | 2018-12-25 23:28 | Neurology Progress Note ---
Interim History Interim History ROS Limited/Unobtainable: No Complaints: Left sided weakness/ spasticity Events: This visit was performed ond December 25, [address] Amador Brewster. Interim History Patient reporting not feeling well today, just overall achiness and mild headache Objective Physical Exam Last Vital Signs Date Time Temp Pulse Resp B/P (MAP) Pulse Ox O2 Delivery O2 Flow Rate FiO2 12/25/18 21:00 Room Air 12/25/18 20:00 98.7 83 18 138/80 (99) 94 12/20/18 20:42 21 Laboratory Tests Test 12/25/18 09:15 White Blood Count 5.5 K/UL (4.8-10.8) Red Blood Count 4.42 M/UL (4.70-6.10) L Hemoglobin 13.5 G/DL (14.2-18.0) L Hematocrit 40.4 % (42.0-52.0) L Mean Corpuscular Volume 91 FL (80-99) Mean Corpuscular Hemoglobin 30.5 PG (27.0-31.0) Mean Corpuscular Hemoglobin Concent 33.3 G/DL (32.0-36.0) Red Cell Distribution Width 12.9 % (11.6-14.8) Platelet Count 205 K/UL (150-450) Mean Platelet Volume 5.7 FL (6.5-10.1) L Neutrophils (%) (Auto) 58.7 % (45.0-75.0) Lymphocytes (%) (Auto) 30.8 % (20.0-45.0) Monocytes (%) (Auto) 7.4 % (1.0-10.0) Eosinophils (%) (Auto) 2.3 % (0.0-3.0) Basophils (%) (Auto) 0.8 % (0.0-2.0) Sodium Level 138 MMOL/L (136-145) Potassium Level 3.7 MMOL/L (3.5-5.1) Chloride Level 100 MMOL/L (98-107) Carbon Dioxide Level 35 MMOL/L (21-32) H Anion Gap 3 mmol/L (5-15) L Blood Urea Nitrogen 18 mg/dL (7-18) Creatinine 1.3 MG/DL (0.55-1.30) Estimat Glomerular Filtration Rate 57.3 mL/min (>60) Glucose Level 147 MG/DL (74-106) H Calcium Level 8.8 MG/DL (8.5-10.1) General: well developed, well nourished, other - Morbidly obese Head: normocophalic Neck: no rigidity EENT: benign Neurologic Exam Mental Status: awake, alert, oriented x4, normal cognition, good mathematical skills, normal recent memory, normal remote memory, preserved visuospatial function Speech: normal speech, no dysarthia Language: normal language, no aphasia Cranial Nerve II: fundus normal, visual bonilla, no papilledema Cranial Nerves III, IV, : PERRLA, EOMI, pupils Cranial Nerve V: normal facial sensations, temporales function normal, masseters function normal, pterygoids function normal Cranial Nerve VII: normal facial expressions, other Cranial Nerve VIII: normal hearing, no nystagmus Cranial Nerve IX: normal palate elevation, gag response Cranial Nerve X: no voice hoarseness Cranial Nerve XI: SCM symmetric, trapezii function normal Cranial Nerve XII: tongue midline, no tongue atrophy/fasciculations Motor System: normal muscle tone, no involuntary movement, no muscle wasting Sensory: normal pinprick, normal light touch, normal position sense, normal graphesthesia Coordination: negative Romberg test Deep Tendon Reflexes: 1+ bicep (L), 1+ bicep (R), 1+ tricep (L), 1+ tricep (R) , 1+ brachioradialis (L), 1+ brachioradialis (R), 1+ knee (L), 1+ knee (R), 1+ ankle (L), 1+ ankle (R) Reflexes: flexor plantar (L), flexor plantar (R); extensor plantar (L), extensor plantar (R) Stance: other - Broad based Objective Left arm, predominantly hand weakness at this time. Alert and oriented, mood stable. Reporting not feeling well Ambulatory with cellulitis persisting bilaterally - recent debridement He does not have proximal left arm weakness at this time or facial weakness, tongue deviated on exam remains but more midline than before. No visible fasciculations or uncontrollable motor movements visible at this time. Impression/Recommendations Problems: (1) Seizures Assessment & Plan: Keppra 1000mg BID PO Maintain SBP<140 Q4 Hour Neuro Checks Ativan 2mg PRN for seizure activity CT Head w/o contrast when able to rule out CVA - also for consideration of MRI if CT negative. - low suspicion of CVA due to normotensive status without risk factors of elevated BP/ HgBA1c or thyroid dysfunction. Na 135-145 Continue pain management - Lyrica 50mg TID - May increase to 75mg TID as needed Continue Gabapentin 600mg TID (2) Morbid obesity (3) COPD (chronic obstructive pulmonary disease) (4) Uncontrolled seizures (5) Left-sided weakness (6) Knee osteomyelits, right Status: stable, progressing Recommendations Continue neuroleptic meds as per psychiatry Some increased agitation - consider additiona 25mg Seroquel PRN for agitation Maintain SBP<140 PT/OT evals CT/ MRI follow up to rule out stroke - wait list for transfer and open MRI scanner EEG as outpatient Continue Lyrica 75mg TID---will increase as needed Q4 hour Neuro Obs - NO NIGHTTIME OBS if stable Prevent delirium Maintain regular sleep schedule and reduce nighttime activities such as observations (if unnecessary) Check LFTS prior to D/C and encourage follow up if they remain elevated .May need to revise Vicky Fonseca N.P. December 25, 2018 23:28
[2018-12-26] VITALS: BP 124/88
[2018-12-26 04:00] VITALS: BP 155/82
[2018-12-26 05:07] LABS: BASOPHILS % (AUTO) 0.7 % (0.0-2.0); EOSINOPHILS % (AUTO) 2.4 % (0.0-3.0); HEMATOCRIT 40.9 % (42.0-52.0); HEMOGLOBIN 13.5 G/DL (14.2-18.0); LYMPHOCYTES % (AUTO) 31.7 % (20.0-45.0); MEAN CORPUSCULAR VOLUME 90 FL (80-99); MONOCYTES % (AUTO) 6.1 % (1.0-10.0); NEUTROPHILS % (AUTO) 59.1 % (45.0-75.0); PLATELET COUNT 172 K/UL (150-450); RED BLOOD COUNT 4.55 M/UL (4.70-6.10)
[2018-12-26 05:16] LABS: ANION GAP 1 mmol/L (5-15); BLOOD UREA NITROGEN 17 mg/dL (7-18); CALCIUM 8.4 MG/DL (8.5-10.1); CARBON DIOXIDE 35 MMOL/L (21-32); CHLORIDE 97 MMOL/L (98-107); CREATININE 1.2 MG/DL (0.55-1.30); POTASSIUM 3.8 MMOL/L (3.5-5.1); SODIUM 133 MMOL/L (136-145)
--- NOTE | 2018-12-26 07:40 | NUR ---
HAND-OFF: Report given to MICAELA Delacruz.
--- NOTE | 2018-12-26 07:45 | NUR ---
NURSE NOTES: Received report from MICAELA Silva. Rounding done. Patient a/o x 4 having breakfast. No respiratory distress noted. Patient request 2 of scrambles with cheese and will call kitchen. Denies any pain at this time. Pain medicine was given by night order selector nurse. Bed in lowest position, call light within reach. Will continue to monitor.
[2018-12-26 08:00] VITALS: BP 138/89
--- NOTE | 2018-12-26 08:06 | Pulmonology Progress Note ---
Assessment/Plan Assessment/Plan ASSESSMENT Cellulitis bilateral lower extremity in setting of chronic venous stasis Peripheral vascular disease with chronic venous stasis ulceration Panniculitis COPD possible ADALBERTO Hx of tobacco abuse Seizure disorder , uncontrolled History of CVAs with left-sided weakness Morbid obesity DM Lumbar spondylosis Peripheral edema Major depressive disorder Hypertension Mild encephalopathy ( per EEG) PLAN OF CARE MS floor abx as per ID recs off Vanco and Bactrim 2 to increased creatinine on daptomycin venous duplex BLE negative wound care as per trucking supervisor recommendation CXR no acute CP pathology O2 PRN to keep pulse ox above 92 pulmonary toilet PRN despite obesity denies hx of ADALBERTO. never been on BiPAP DVT prophylaxis however, anesthesia should be on alert for probable ADALBERTO counseled to continue abstinence from smoking started on Lasix , monitor volumes and renal parameters seen by plastic surgeon, will benefit from panniculectomy cardio follows patient cleared for surgery pain management seizure precaution continue Keppra , Ativan as needed CT of the head unable to do ( since patient unable to fit to the machine and will need open CT/MRI), although low suspicion, likely seizure activity - as per neuro continue Plavix and statin (allergic to aspirin) EEG -with mild encephalopathy pain management supportive care bowel regimen HgbA1c 5.4 , BS stable psych meds as per psychiatrist recommendation case discussed and evaluated by supervising physician Subjective Allergies: Coded Allergies: ASPIRIN (Verified Allergy, Unknown, 07/14/18) KETOROLAC (Verified Allergy, Unknown, 07/14/18) PENICILLINS (Verified Allergy, Unknown, 12/23/18) tolerated Ancef on 08/2018 Subjective no fevers, no leuk reports pain BLE no SOB pulse ox stable on RA Objective Last 24 Hour Vital Signs Date Time Temp Pulse Resp B/P (MAP) Pulse Ox O2 Delivery O2 Flow Rate FiO2 12/26/18 04:00 98.2 91 20 155/82 (106) 95 12/26/18 00:00 98.6 84 19 124/88 (100) 96 12/25/18 21:00 Room Air 12/25/18 20:00 98.7 83 18 138/80 (99) 94 12/25/18 16:00 98.9 82 19 127/76 (93) 98 12/25/18 12:00 98.8 76 18 128/71 (90) 93 12/25/18 09:00 Room Air Intake and Output 12/25/18 12/26/18 18:59 06:59 Intake Total 1800 ml Balance 1800 ml Other 1800 ml # Voids 3 General Appearance: no acute distress, other - A/A/O x 3 morbidly obese male HEENT: normocephalic, atraumatic, anicteric, mucous membranes moist Respiratory/Chest: lungs clear - with moderate air exchange Cardiovascular: normal rate - distant heart sounds Abdomen: soft, non tender - obese, panniculitis Extremities: other - edema +3 BLE , BLE with dressing C/D/i Skin: other - venous stasis, ulceration BLE Neurologic/Psychiatric: no motor/sensory deficits, alert, oriented x 3, responsive, normal mood/affect Musculoskeletal: normal muscle bulk Laboratory Tests 12/25/18 09:15: White Blood Count 5.5, Red Blood Count 4.42L, Hemoglobin 13.5L, Hematocrit 40.4L , Mean Corpuscular Volume 91, Mean Corpuscular Hemoglobin 30.5, Mean Corpuscular Hemoglobin Concent 33.3, Red Cell Distribution Width 12.9, Platelet Count 205, Mean Platelet Volume 5.7L, Neutrophils (%) (Auto) 58.7, Lymphocytes ( %) (Auto) 30.8, Monocytes (%) (Auto) 7.4, Eosinophils (%) (Auto) 2.3, Basophils (%) (Auto) 0.8, Sodium Level 138, Potassium Level 3.7, Chloride Level 100, Carbon Dioxide Level 35H, Anion Gap 3L, Blood Urea Nitrogen 18, Creatinine 1.3, Estimat Glomerular Filtration Rate 57.3, Glucose Level 147H, Calcium Level 8.8 12/26/18 04:55: White Blood Count 6.0, Red Blood Count 4.55L, Hemoglobin 13.5L, Hematocrit 40.9L , Mean Corpuscular Volume 90, Mean Corpuscular Hemoglobin 29.8, Mean Corpuscular Hemoglobin Concent 33.1, Red Cell Distribution Width 13.0, Platelet Count 172, Mean Platelet Volume 5.9L, Neutrophils (%) (Auto) 59.1, Lymphocytes ( %) (Auto) 31.7, Monocytes (%) (Auto) 6.1, Eosinophils (%) (Auto) 2.4, Basophils (%) (Auto) 0.7, Sodium Level 133L, Potassium Level 3.8, Chloride Level 97L, Carbon Dioxide Level 35H, Anion Gap 1L, Blood Urea Nitrogen 17, Creatinine 1.2, Estimat Glomerular Filtration Rate > 60, Glucose Level 116H, Calcium Level 8.4L Current Medications Medications (Trade) Dose Ordered Sig/Luis Route PRN Reason Start Time Stop Time Status Last Admin Dose Admin Acetaminophen (Tylenol) 650 mg Q4H PRN ORAL fever 12/15/18 14:54 01/14/19 14:53 Atorvastatin Calcium (Lipitor) 80 mg BEDTIME ORAL 12/15/18 21:00 01/14/19 20:59 12/25/18 20:38 Chlorhexidine Gluconate (Ruby-Hex 2%) 1 applic DAILY@1999 TOPIC 12/22/18 20:00 01/21/19 19:59 12/25/18 20:43 Clonidine HCl (Catapres Tab) 0.1 mg Q4H PRN ORAL For High Blood Pressure 12/15/18 14:56 01/14/19 14:55 Clopidogrel Bisulfate (Plavix) 75 mg DAILY ORAL 12/16/18 09:00 01/14/19 08:59 12/25/18 09:44 Daptomycin 900 mg/ Sodium Chloride 55 ml @ 110 mls/hr Q24H IV 12/25/18 14:00 01/01/19 13:59 12/25/18 14:28 Dextrose (Dextrose 50%) 25 ml Q30M PRN IV Hypoglycemia 12/15/18 15:15 01/13/19 23:44 Dextrose (Dextrose 50%) 50 ml Q30M PRN IV Hypoglycemia 12/15/18 15:15 01/13/19 23:44 Duloxetine HCl (Cymbalta) 30 mg DAILY ORAL 12/16/18 09:00 01/14/19 08:59 12/25/18 09:44 Furosemide (Lasix) 20 mg ONCE IV 12/21/18 17:00 01/20/19 16:59 12/25/18 17:31 Furosemide (Lasix) 20 mg Q6HR IV 12/22/18 00:00 01/21/19 00:00 12/26/18 06:18 Gabapentin (Neurontin) 600 mg THREE TIMES A DAY ORAL 12/15/18 18:00 01/14/19 08:59 12/25/18 17:31 Heparin Sodium (Porcine) (Heparin 5000 units/ml) 5,000 units EVERY 12 HOURS SUBQ 12/15/18 21:00 01/14/19 08:59 12/25/18 20:42 Hydromorphone HCl (Dilaudid) 3 mg Q4H PRN IVP Severe Pain (Pain Scale 7-10) 12/25/18 10:00 01/01/19 09:59 12/26/18 07:05 Levetiracetam (Keppra) 1,000 mg Q12HR ORAL 12/19/18 09:00 01/18/19 08:59 12/25/18 20:38 Nitroglycerin (Ntg) 0.4 mg Q5M X 3 DOSES PRN SL Prn Chest Pain 12/15/18 14:45 01/13/19 23:44 Ondansetron HCl (Zofran) 4 mg Q6H PRN IVP Nausea & Vomiting 12/15/18 14:55 01/14/19 14:54 12/17/18 10:19 Polyethylene Glycol (Miralax) 17 gm HSPRN PRN ORAL Constipation 12/15/18 14:55 01/14/19 14:54 Pregabalin (Lyrica) 100 mg THREE TIMES A DAY ORAL 12/26/18 09:00 01/19/19 22:59 Promethazine HCl/ Codeine (Phenergan with Codeine) 5 ml Q4H PRN ORAL For Cough 12/15/18 14:55 01/14/19 14:54 Trazodone HCl (Desyrel) 100 mg BEDTIME ORAL 12/15/18 21:00 01/14/19 20:59 12/25/18 20:38 Kiera Vivar REHABILITATION CASEWORKER Dec 26, 2018 08:06
--- NOTE | 2018-12-26 08:07 | General Progress Note ---
Assessment/Plan Problem List: (1) Abdominal pannus ICD Codes: E65 - Localized adiposity SNOMED: 6446812464740 (2) Peripheral edema ICD Codes: R60.9 - Edema, unspecified SNOMED: 056527820 (3) Abdominal wall cellulitis ICD Codes: L03.311 - Cellulitis of abdominal wall SNOMED: 89130011 (4) Leg pain ICD Codes: M79.606 - Pain in leg, unspecified SNOMED: 15604964 (5) COPD (chronic obstructive pulmonary disease) ICD Codes: J44.9 - Chronic obstructive pulmonary disease, unspecified SNOMED: 17250097 (6) Seizures ICD Codes: R56.9 - Unspecified convulsions SNOMED: 17910250 (7) Morbid obesity ICD Codes: E66.01 - Morbid (severe) obesity due to excess calories SNOMED: 719774896 (8) Cerebrovascular accident ICD Codes: I63.9 - Cerebral infarction, unspecified SNOMED: 810575861 (9) Left-sided weakness ICD Codes: R53.1 - Weakness SNOMED: 921210622 Status: stable, progressing Assessment/Plan: pt diet neuro f/u wound care abx pain control cbc bmp am dc to snf Subjective Constitutional: Reports: weakness Allergies: Coded Allergies: ASPIRIN (Verified Allergy, Unknown, 07/14/18) KETOROLAC (Verified Allergy, Unknown, 07/14/18) PENICILLINS (Verified Allergy, Unknown, 12/23/18) tolerated Ancef on 08/2018 All Systems: reviewed and negative except above Subjective sleepy calm Objective Last 24 Hour Vital Signs Date Time Temp Pulse Resp B/P (MAP) Pulse Ox O2 Delivery O2 Flow Rate FiO2 12/26/18 04:00 98.2 91 20 155/82 (106) 95 12/26/18 00:00 98.6 84 19 124/88 (100) 96 12/25/18 21:00 Room Air 12/25/18 20:00 98.7 83 18 138/80 (99) 94 12/25/18 16:00 98.9 82 19 127/76 (93) 98 12/25/18 12:00 98.8 76 18 128/71 (90) 93 12/25/18 09:00 Room Air Intake and Output 12/25/18 12/26/18 18:59 06:59 Intake Total 1800 ml Balance 1800 ml Other 1800 ml # Voids 3 Laboratory Tests 12/25/18 09:15: White Blood Count 5.5, Red Blood Count 4.42L, Hemoglobin 13.5L, Hematocrit 40.4L , Mean Corpuscular Volume 91, Mean Corpuscular Hemoglobin 30.5, Mean Corpuscular Hemoglobin Concent 33.3, Red Cell Distribution Width 12.9, Platelet Count 205, Mean Platelet Volume 5.7L, Neutrophils (%) (Auto) 58.7, Lymphocytes ( %) (Auto) 30.8, Monocytes (%) (Auto) 7.4, Eosinophils (%) (Auto) 2.3, Basophils (%) (Auto) 0.8, Sodium Level 138, Potassium Level 3.7, Chloride Level 100, Carbon Dioxide Level 35H, Anion Gap 3L, Blood Urea Nitrogen 18, Creatinine 1.3, Estimat Glomerular Filtration Rate 57.3, Glucose Level 147H, Calcium Level 8.8 12/26/18 04:55: White Blood Count 6.0, Red Blood Count 4.55L, Hemoglobin 13.5L, Hematocrit 40.9L , Mean Corpuscular Volume 90, Mean Corpuscular Hemoglobin 29.8, Mean Corpuscular Hemoglobin Concent 33.1, Red Cell Distribution Width 13.0, Platelet Count 172, Mean Platelet Volume 5.9L, Neutrophils (%) (Auto) 59.1, Lymphocytes ( %) (Auto) 31.7, Monocytes (%) (Auto) 6.1, Eosinophils (%) (Auto) 2.4, Basophils (%) (Auto) 0.7, Sodium Level 133L, Potassium Level 3.8, Chloride Level 97L, Carbon Dioxide Level 35H, Anion Gap 1L, Blood Urea Nitrogen 17, Creatinine 1.2, Estimat Glomerular Filtration Rate > 60, Glucose Level 116H, Calcium Level 8.4L Height (Feet): 5 Height (Inches): 10.00 Weight (Pounds): 489 General Appearance: lethargic EENT: normal ENT inspection Neck: normal alignment Cardiovascular: normal peripheral pulses, normal rate, regular rhythm Respiratory/Chest: chest wall non-tender, lungs clear, normal breath sounds Abdomen: normal bowel sounds, non tender, soft Extremities: normal inspection Edema: no edema noted Arm (L), no edema noted Arm (R), no edema noted Leg (L), no edema noted Leg (R), no edema noted Pedal (L), no edema noted Pedal (R), no edema noted Generalized Neurologic: motor weakness Skin: normal pigmentation, warm/dry Ernesto Nicole DO Dec 26, 2018 08:06
[2018-12-26] MEDS: DULoxetine 30mg cap ORAL SCH (09:35)
[2018-12-26] MEDS: Lyrica 50mg cap ORAL SCH ×3 (09:36→17:56)
[2018-12-26] MEDS: Heparin 5000 units/ml inj SUBQ SCH ×2 (09:37→20:24)
[2018-12-26 12:00] VITALS: BP 147/86
--- NOTE | 2018-12-26 12:30 | NUR ---
NURSE NOTES: Dr. Taylor ordered urinalysis. Specimen bottle was given to pt and instruction was given.
[2018-12-26 12:42] LABS: ALANINE AMINOTRANSFERASE 37 U/L (12-78); ALBUMIN 3.1 G/DL (3.4-5.0); ALKALINE PHOSPHATASE 159 U/L (46-116); ASPARTATE AMINO TRANSFERASE 33 U/L (15-37); BILIRUBIN,DIRECT < 0.1 MG/DL (0.0-0.3); BILIRUBIN,TOTAL 0.4 MG/DL (0.2-1.0)
--- NOTE | 2018-12-26 14:40 | NUR ---
NURSE NOTES: Patient stat he voided already but forgot to collet the urine. Instruction was given to pt again and explained that Dr. Taylor added osmolality urine and sodium random urine. Asked pt collect the urine as soon as he void. Verbalized understanding.
[2018-12-26] MEDS: DAPTOMYCIN IV SCH (14:58)
[2018-12-26] MEDS: NS IV SCH (14:58)
--- NOTE | 2018-12-26 15:06 | Consultation ---
Consult Note Consult Note asked to eval by Dr Nicole for lowering serum Na data reviewed patient examined and interviewed . Assessment/Plan Cellulitis bilateral lower extremity in setting of chronic venous stasis Peripheral vascular disease with chronic venous stasis ulceration Panniculitis COPD possible ADALBERTO Hx of tobacco abuse Seizure disorder , uncontrolled History of CVAs with left-sided weakness Morbid obesity DM Lumbar spondylosis Peripheral edema Major depressive disorder Hypertension Mild encephalopathy ( per EEG) meds reviewed will obtain Urine Osm and Na Monitor lytes per orders Devante Taylor MD Dec 26, 2018 15:06
[2018-12-26 16:00] VITALS: BP 137/73
--- NOTE | 2018-12-26 17:19 | NUR ---
NURSE NOTES: Patient did not collect urine. Explained to pt that was stat order. Pt stat "I will promise to collect urine soon."
--- NOTE | 2018-12-26 17:29 | NUR ---
RESIDENT ADVISORHIGH SCHOOL COORDINATOR 12/26/2018 SI:ABDOMINAL WALL CELLULITES T 98.6 HR 84 RR 19 B/P 124/88 SATS 96% ON RA NA 133 CL 97 CO2 35 GLU 116 IS:CEFAZOLIN SODIUM 110ml IVPB DILAUDID 3mg DAPTOMYCIN 55ml IV GABAPENTIN 600mg PLAVIX 75mg KEPPRA 1,000mg CYMBALTA 30mg MED/SURG STATUS
[2018-12-26 17:49] LABS: APPEARANCE,URINE CLEAR; BILIRUBIN, URINE NEGATIVE (NEGATIVE); COLOR,URINE PALE YELLOW; GLUCOSE, URINE (UA) NEGATIVE (NEGATIVE); KETONES,URINE NEGATIVE (NEGATIVE); LEUKOCYTE ESTERASE ,URINE NEGATIVE (NEGATIVE); NITRITE,URINE NEGATIVE (NEGATIVE); PH,URINE 6.5 (4.5-8.0); PROTEIN,URINE NEGATIVE (NEGATIVE); UROBILINOGEN,URINE NORMAL MG/DL (0.0-1.0)
--- NOTE | 2018-12-26 19:25 | NUR ---
HAND-OFF: Report given to MICAELA Silva. Patient is stable.
--- NOTE | 2018-12-26 19:58 | NUR ---
NURSE NOTES: Pt in bed changing his own dressings because he states they were bleeding, able to make needs known, call light within reach, no c/o pain or signs of distress, will continue to monitor.
[2018-12-26 20:00] VITALS: BP 147/85
[2018-12-26] MEDS: Dyna-Hex 2% Top Sol 2oz TOPIC SCH (20:21)
[2018-12-26] MEDS: Atorvastatin 80mg tab ORAL SCH (20:22)
[2018-12-26] MEDS: TraZODone 100mg tab ORAL SCH (20:22)
--- NOTE | 2018-12-26 21:30 | Electroencephalogram ---
DATE OF TRACIN12/25/2018 REQUESTING PHYSICIAN: Amador Brewster M.D. READING PHYSICIAN: Kar Soriano M.D. PROCEDURE PERFORMED: Electroencephalogram. HISTORY: This EEG was performed on a 53-year-old gentleman with history of an altered mental state and a seizure disorder. The purpose of this EEG was to evaluate the patient for the degree and type of cerebral dysfunction and to exclude ongoing ictal or interictal phenomena. TECHNICAL NOTE: This EEG was performed on a [id number] Unit with electrodes placed on the scalp according to the International 10-20 system. Nefpp-gb-wofwm and ipnuh-xa-oxq montages were used. The EEG was technically satisfactory and was performed in the awake, drowsy, and sleep states. OBSERVATIONS: In the best awake state, the background activity consisted of 6.5-7 Hz theta activity with some intermixed alpha frequencies. Drowsiness was characterized by slowing of the background in the 4-5 Hz theta range with intermixed delta frequencies and in addition bilateral frontotemporal polymorphic delta activity. Stage II sleep was characterized by further slowing of the background in the delta and theta range, the presence of vertex waves, and 12 Hz sleep spindles. No definite focal abnormalities or epileptiform discharges were seen. IMPRESSION: This is an abnormal EEG characterized by: 1. Slowing of the background, predominantly in the 6.5-7 Hz theta range with some intermixed alpha frequencies. 2. The presence of bilateral frontotemporal polymorphic delta activity seen during drowsiness. COMMENT: This study is consistent with an encephalopathy of a [id number]-mg-ydhflkhz degree. Kar Soriano M.D., M.S.P.H. DR: LINDSEY JOB#: [id number] [facility] CENTERLamberto
--- NOTE | 2018-12-26 23:02 | Cardiology Progress Note ---
Assessment/Plan Assessment/Plan 1. Morbid obesity with pannus formation, normal LV systolic and diastolic function per recent echo, clear for "removal of pannus". 2. Chronic venous insufficiency. 3. Hx of HTN, stage II, start amlodipine 2.5mg daily. 4. COPD 5. Seizure D/O Subjective Subjective Deniers chest pain or SOB. No cardiac events. Objective Last 24 Hour Vital Signs Date Time Temp Pulse Resp B/P (MAP) Pulse Ox O2 Delivery O2 Flow Rate FiO2 12/26/18 21:00 Room Air 12/26/18 20:00 98.1 81 20 147/85 (105) 93 12/26/18 16:00 98.7 82 17 137/73 (94) 95 12/26/18 12:00 98.7 95 19 147/86 (106) 93 12/26/18 09:00 Room Air 12/26/18 08:00 97.5 96 18 138/89 (105) 93 12/26/18 04:00 98.2 91 20 155/82 (106) 95 12/26/18 00:00 98.6 84 19 124/88 (100) 96 Intake and Output 12/25/18 12/26/18 19:00 07:00 Intake Total 1800 ml Balance 1800 ml Other 1800 ml # Voids 3 2D Echo: Normal LV systolic function, RVSP 34 mmHg, RAP elevated at 15 mmHg Laboratory Tests Test 12/26/18 04:55 12/26/18 17:30 White Blood Count 6.0 K/UL (4.8-10.8) Red Blood Count 4.55 M/UL (4.70-6.10) L Hemoglobin 13.5 G/DL (14.2-18.0) L Hematocrit 40.9 % (42.0-52.0) L Mean Corpuscular Volume 90 FL (80-99) Mean Corpuscular Hemoglobin 29.8 PG (27.0-31.0) Mean Corpuscular Hemoglobin Concent 33.1 G/DL (32.0-36.0) Red Cell Distribution Width 13.0 % (11.6-14.8) Platelet Count 172 K/UL (150-450) Mean Platelet Volume 5.9 FL (6.5-10.1) L Neutrophils (%) (Auto) 59.1 % (45.0-75.0) Lymphocytes (%) (Auto) 31.7 % (20.0-45.0) Monocytes (%) (Auto) 6.1 % (1.0-10.0) Eosinophils (%) (Auto) 2.4 % (0.0-3.0) Basophils (%) (Auto) 0.7 % (0.0-2.0) Sodium Level 133 MMOL/L (136-145) L Potassium Level 3.8 MMOL/L (3.5-5.1) Chloride Level 97 MMOL/L (98-107) L Carbon Dioxide Level 35 MMOL/L (21-32) H Anion Gap 1 mmol/L (5-15) L Blood Urea Nitrogen 17 mg/dL (7-18) Creatinine 1.2 MG/DL (0.55-1.30) Estimat Glomerular Filtration Rate > 60 mL/min (>60) Glucose Level 116 MG/DL (74-106) H Osmolality 288 mOsm/kg (297-317) L Uric Acid 6.0 MG/DL (2.6-7.2) Calcium Level 8.4 MG/DL (8.5-10.1) L Phosphorus Level 4.0 MG/DL (2.5-4.9) Magnesium Level 1.6 MG/DL (1.8-2.4) L Total Bilirubin 0.4 MG/DL (0.2-1.0) Direct Bilirubin < 0.1 MG/DL (0.0-0.3) Aspartate Amino Transf (AST/SGOT) 33 U/L (15-37) Alanine Aminotransferase (ALT/SGPT) 37 U/L (12-78) Alkaline Phosphatase 159 U/L (46-116) H Total Protein 6.5 G/DL (6.4-8.2) Albumin 3.1 G/DL (3.4-5.0) L Urine Color Pale yellow Urine Appearance Clear Urine pH 6.5 (4.5-8.0) Urine Specific [place] 1.010 (1.005-1.035) Urine Protein Negative (NEGATIVE) Urine Glucose (UA) Negative (NEGATIVE) Urine Ketones Negative (NEGATIVE) Urine Blood Negative (NEGATIVE) Urine Nitrite Negative (NEGATIVE) Urine Bilirubin Negative (NEGATIVE) Urine Urobilinogen Normal MG/DL (0.0-1.0) Urine Leukocyte Esterase Negative (NEGATIVE) Urine RBC 0-2 /HPF (0 - 0) H Urine WBC 0-2 /HPF (0 - 0) Urine Squamous Epithelial Cells None /LPF (NONE/OCC) Urine Bacteria Few /HPF (NONE) Urine Osmolality 312 mOsm/kg (429-449) L Urine Random Sodium 66 mmol/L (20-110) Objective HEENT: Atraumatic and normocephalic. Anicteric. Pupils are equal, round, and reactive to light and accommodation. NECK: JVP cannot be assessed due to obesity. No carotid bruit. CARDIOVASCULAR: Normal S1, S2. Regular rate and rhythm. No murmurs, gallops, or rubs. PMI is at fourth intercostal space at the midclavicular line. LUNGS: Clear to auscultation bilaterally. ABDOMEN: Distended due to pannus formation, cannot palpate hepatosplenomegaly. Positive bowel sounds. EXTREMITIES: No lower extremity edema, clubbing or cyanosis. Carlos Martins MD Dec 26, 2018 23:02
[2018-12-27] VITALS: BP 120/67
[2018-12-27 04:00] VITALS: BP 123/65
--- NOTE | 2018-12-27 07:49 | NUR ---
HAND-OFF: Report given to MICAELA Shearer.
[2018-12-27 08:00] VITALS: BP 133/74
--- NOTE | 2018-12-27 08:00 | NUR ---
NURSE NOTES: received patient seated on bed, with c/o bilateral leg pain, given pain mediation as ordered. No respiratory distress noted. Bed locked at the lowest position possible, call light within easy reach, siderails up x3 and padded to the right side, pt refused for the left side to be padded as pt complains he has hard time to reach the buttons for lifting or lowering head. Changed bilateral legs dressing with asseptic/sterile technique. Will continue to monitor patient and follow up with the plan of care.
[2018-12-27] MEDS: Lyrica 50mg cap ORAL SCH ×3 (08:01→17:24)
[2018-12-27] MEDS: Heparin 5000 units/ml inj SUBQ SCH ×2 (08:08→20:18)
[2018-12-27] MEDS: DULoxetine 30mg cap ORAL SCH (08:09)
--- NOTE | 2018-12-27 08:43 | Pulmonology Progress Note ---
Assessment/Plan Assessment/Plan ASSESSMENT Cellulitis bilateral lower extremity in setting of chronic venous stasis Peripheral vascular disease with chronic venous stasis ulceration Panniculitis COPD possible ADALBERTO Hx of tobacco abuse Seizure disorder , uncontrolled History of CVAs with left-sided weakness Morbid obesity DM Lumbar spondylosis Peripheral edema Major depressive disorder Hypertension Mild encephalopathy ( per EEG) PLAN OF CARE MS floor abx as per ID recs off Vanco and Bactrim 2 to increased creatinine on daptomycin venous duplex BLE negative wound care as per bill hiker recommendation CXR no acute CP pathology O2 PRN to keep pulse ox above 92 pulmonary toilet PRN despite obesity denies hx of ADALBERTO. never been on BiPAP DVT prophylaxis however, anesthesia should be on alert for probable ADALBERTO counseled to continue abstinence from smoking started on Lasix , monitor volumes and renal parameters seen by plastic surgeon, will benefit from panniculectomy cardio follows patient cleared for surgery pain management seizure precaution continue Keppra , Ativan as needed CT of the head unable to do ( since patient unable to fit to the machine and will need open CT/MRI), although low suspicion, likely seizure activity - as per neuro continue Plavix and statin (allergic to aspirin) EEG -with mild encephalopathy pain management supportive care bowel regimen HgbA1c 5.4 , BS stable psych meds as per psychiatrist recommendation dc plan to SNF on abx as per ID recs case discussed and evaluated by supervising physician Subjective Allergies: Coded Allergies: ASPIRIN (Verified Allergy, Unknown, 07/14/18) KETOROLAC (Verified Allergy, Unknown, 07/14/18) PENICILLINS (Verified Allergy, Unknown, 12/23/18) tolerated Ancef on 08/2018 Subjective no fevers, no leuk reports pain BLE no SOB pulse ox stable on RA Objective Last 24 Hour Vital Signs Date Time Temp Pulse Resp B/P (MAP) Pulse Ox O2 Delivery O2 Flow Rate FiO2 12/27/18 04:00 98.9 89 19 123/65 (84) 95 12/27/18 00:00 98.2 78 18 120/67 (84) 94 12/26/18 21:00 Room Air 12/26/18 20:00 98.1 81 20 147/85 (105) 93 12/26/18 16:00 98.7 82 17 137/73 (94) 95 12/26/18 12:00 98.7 95 19 147/86 (106) 93 12/26/18 09:00 Room Air Intake and Output 12/26/18 12/27/18 18:59 06:59 Intake Total 1555 ml 100 ml Output Total 500 ml Balance 1555 ml -400 ml IV Total 55 ml 100 ml Other 1500 ml Output Urine Total 500 ml # Voids 8 Objective General Appearance: no acute distress, A/A/O x 3 morbidly obese male HEENT: normocephalic, atraumatic, anicteric, mucous membranes moist Respiratory/Chest: lungs clear - with moderate air exchange Cardiovascular: normal rate - distant heart sounds Abdomen: soft, non tender , obese, panniculitis Extremities: edema +3 BLE , BLE with dressing C/D/i Skin: other - venous stasis, ulceration BLE Neurologic/Psychiatric: no motor/sensory deficits, alert, oriented x 3, responsive, normal mood/affect Musculoskeletal: normal muscle bulk Laboratory Tests 12/26/18 17:30: Urine Color Pale yellow, Urine Appearance Clear, Urine pH 6.5, Urine Specific [place] 1.010, Urine Protein Negative, Urine Glucose (UA) Negative, Urine Ketones Negative, Urine Blood Negative, Urine Nitrite Negative, Urine Bilirubin Negative, Urine Urobilinogen Normal, Urine Leukocyte Esterase Negative, Urine RBC 0-2H, Urine WBC 0-2, Urine Squamous Epithelial Cells None, Urine Bacteria Few, Urine Osmolality 312L, Urine Random Sodium 66 Current Medications Medications (Trade) Dose Ordered Sig/Luis Route PRN Reason Start Time Stop Time Status Last Admin Dose Admin Acetaminophen (Tylenol) 650 mg Q4H PRN ORAL fever 12/15/18 14:54 01/14/19 14:53 Amlodipine Besylate (Norvasc) 2.5 mg DAILY ORAL 12/27/18 09:00 01/26/19 08:59 Atorvastatin Calcium (Lipitor) 80 mg BEDTIME ORAL 12/15/18 21:00 01/14/19 20:59 12/26/18 20:22 Chlorhexidine Gluconate (Ruby-Hex 2%) 1 applic DAILY@1999 TOPIC 12/22/18 20:00 01/21/19 19:59 12/26/18 20:21 Clonidine HCl (Catapres Tab) 0.1 mg Q4H PRN ORAL For High Blood Pressure 12/15/18 14:56 01/14/19 14:55 Clopidogrel Bisulfate (Plavix) 75 mg DAILY ORAL 12/16/18 09:00 01/14/19 08:59 12/27/18 08:00 Daptomycin 900 mg/ Sodium Chloride 55 ml @ 110 mls/hr Q24H IV 12/25/18 14:00 01/01/19 13:59 12/26/18 14:58 Dextrose (Dextrose 50%) 25 ml Q30M PRN IV Hypoglycemia 12/15/18 15:15 01/13/19 23:44 Dextrose (Dextrose 50%) 50 ml Q30M PRN IV Hypoglycemia 12/15/18 15:15 01/13/19 23:44 Duloxetine HCl (Cymbalta) 30 mg DAILY ORAL 12/16/18 09:00 01/14/19 08:59 12/27/18 08:09 Furosemide (Lasix) 20 mg ONCE IV 12/21/18 17:00 01/20/19 16:59 12/26/18 17:04 Furosemide (Lasix) 20 mg Q6HR IV 12/22/18 00:00 01/21/19 00:00 12/27/18 05:03 Gabapentin (Neurontin) 600 mg THREE TIMES A DAY ORAL 12/15/18 18:00 01/14/19 08:59 12/27/18 08:01 Heparin Sodium (Porcine) (Heparin 5000 units/ml) 5,000 units EVERY 12 HOURS SUBQ 12/15/18 21:00 01/14/19 08:59 12/27/18 08:08 Hydromorphone HCl (Dilaudid) 3 mg Q4H PRN IVP Severe Pain (Pain Scale 7-10) 12/25/18 10:00 01/01/19 09:59 12/27/18 08:00 Levetiracetam (Keppra) 1,000 mg Q12HR ORAL 12/19/18 09:00 01/18/19 08:59 12/27/18 08:00 Nitroglycerin (Ntg) 0.4 mg Q5M X 3 DOSES PRN SL Prn Chest Pain 12/15/18 14:45 01/13/19 23:44 Ondansetron HCl (Zofran) 4 mg Q6H PRN IVP Nausea & Vomiting 12/15/18 14:55 01/14/19 14:54 12/17/18 10:19 Polyethylene Glycol (Miralax) 17 gm HSPRN PRN ORAL Constipation 12/15/18 14:55 01/14/19 14:54 Pregabalin (Lyrica) 100 mg THREE TIMES A DAY ORAL 12/26/18 09:00 01/19/19 22:59 12/27/18 08:01 Promethazine HCl/ Codeine (Phenergan with Codeine) 5 ml Q4H PRN ORAL For Cough 12/15/18 14:55 01/14/19 14:54 Trazodone HCl (Desyrel) 100 mg BEDTIME ORAL 12/15/18 21:00 01/14/19 20:59 12/26/18 20:22 Kiera Vivar REVENUE AGENT Dec 27, 2018 08:43
--- NOTE | 2018-12-27 08:53 | General Progress Note ---
Assessment/Plan Problem List: (1) Abdominal pannus ICD Codes: E65 - Localized adiposity SNOMED: 8065544412286 (2) Peripheral edema ICD Codes: R60.9 - Edema, unspecified SNOMED: 871327397 (3) Abdominal wall cellulitis ICD Codes: L03.311 - Cellulitis of abdominal wall SNOMED: 91578897 (4) Leg pain ICD Codes: M79.606 - Pain in leg, unspecified SNOMED: 39832806 (5) COPD (chronic obstructive pulmonary disease) ICD Codes: J44.9 - Chronic obstructive pulmonary disease, unspecified SNOMED: 57083245 (6) Seizures ICD Codes: R56.9 - Unspecified convulsions SNOMED: 69749635 (7) Morbid obesity ICD Codes: E66.01 - Morbid (severe) obesity due to excess calories SNOMED: 971066857 (8) Cerebrovascular accident ICD Codes: I63.9 - Cerebral infarction, unspecified SNOMED: 582020996 (9) Left-sided weakness ICD Codes: R53.1 - Weakness SNOMED: 571241829 Status: stable, progressing Assessment/Plan: pt diet neuro f/u wound care abx pain control cbc bmp am dc to snf Subjective Constitutional: Reports: weakness Allergies: Coded Allergies: ASPIRIN (Verified Allergy, Unknown, 07/14/18) KETOROLAC (Verified Allergy, Unknown, 07/14/18) PENICILLINS (Verified Allergy, Unknown, 12/23/18) tolerated Ancef on 08/2018 All Systems: reviewed and negative except above Subjective sleepy calm Objective Last 24 Hour Vital Signs Date Time Temp Pulse Resp B/P (MAP) Pulse Ox O2 Delivery O2 Flow Rate FiO2 12/27/18 04:00 98.9 89 19 123/65 (84) 95 12/27/18 00:00 98.2 78 18 120/67 (84) 94 12/26/18 21:00 Room Air 12/26/18 20:00 98.1 81 20 147/85 (105) 93 12/26/18 16:00 98.7 82 17 137/73 (94) 95 12/26/18 12:00 98.7 95 19 147/86 (106) 93 12/26/18 09:00 Room Air Intake and Output 12/26/18 12/27/18 18:59 06:59 Intake Total 1555 ml 100 ml Output Total 500 ml Balance 1555 ml -400 ml IV Total 55 ml 100 ml Other 1500 ml Output Urine Total 500 ml # Voids 8 Laboratory Tests 12/26/18 17:30: Urine Color Pale yellow, Urine Appearance Clear, Urine pH 6.5, Urine Specific [place] 1.010, Urine Protein Negative, Urine Glucose (UA) Negative, Urine Ketones Negative, Urine Blood Negative, Urine Nitrite Negative, Urine Bilirubin Negative, Urine Urobilinogen Normal, Urine Leukocyte Esterase Negative, Urine RBC 0-2H, Urine WBC 0-2, Urine Squamous Epithelial Cells None, Urine Bacteria Few, Urine Osmolality 312L, Urine Random Sodium 66 Height (Feet): 5 Height (Inches): 10.00 Weight (Pounds): 489 General Appearance: lethargic EENT: normal ENT inspection Neck: normal alignment Cardiovascular: normal peripheral pulses, normal rate, regular rhythm Respiratory/Chest: chest wall non-tender, lungs clear, normal breath sounds Abdomen: normal bowel sounds, non tender, soft Extremities: normal inspection Edema: no edema noted Arm (L), no edema noted Arm (R), no edema noted Leg (L), no edema noted Leg (R), no edema noted Pedal (L), no edema noted Pedal (R), no edema noted Generalized Neurologic: responsive, motor weakness Skin: normal pigmentation, warm/dry Ernesto Nicole DO Dec 27, 2018 08:53
--- NOTE | 2018-12-27 10:31 | Infectious Diseases Prog Note ---
Assessment/Plan Assessment/Plan B/l Leg cellulitis and panniculitis- in the setting of chronic venous stasis L side weakness/spasticity- thought be 2ry to seizures- r/O CVA- no active infectious process at present (pt afebrile- doubt meningitis at this moment) Afebrile No leukocytosis -CXR: No acute findings CVA HTN bipolar disorder w/ psychotic features tobacco abuse anxiety disorder chronic pain CHF seizure disorder COPD morbid obesity Dm2 HTN SNF resident Plan: IV Dapto d# 3 ( pt Cr increased 30% will avoid Vanco) Would continue daptomycin for 10-14 days depending on response Monitor CPK, CBC and CMP weekly while on Abx DC Bactrim #4/14 and add IV Ancef #3/14 for cellulitis -f/u cx -Monitor CBC/CMP, temperatures -neuro f/u- plan for CT head, include neck as lump in back of neck; however pt did not fit on CT scan machine due to weight -aspiration precautions -wound care per hospital protocol Subjective Allergies: Coded Allergies: ASPIRIN (Verified Allergy, Unknown, 07/14/18) KETOROLAC (Verified Allergy, Unknown, 07/14/18) PENICILLINS (Verified Allergy, Unknown, 12/23/18) tolerated Ancef on 08/2018 Subjective Afebrile No leukocytosis Cellulitis slowly improving per patient Objective Vital Signs Last 24 Hour Vital Signs Date Time Temp Pulse Resp B/P (MAP) Pulse Ox O2 Delivery O2 Flow Rate FiO2 12/27/18 09:00 88 133/74 12/27/18 08:30 98.9 12/27/18 08:00 100.0 88 20 133/74 (93) 93 12/27/18 04:00 98.9 89 19 123/65 (84) 95 12/27/18 00:00 98.2 78 18 120/67 (84) 94 12/26/18 21:00 Room Air 12/26/18 20:00 98.1 81 20 147/85 (105) 93 12/26/18 16:00 98.7 82 17 137/73 (94) 95 12/26/18 12:00 98.7 95 19 147/86 (106) 93 Height (Feet): 5 Height (Inches): 10.00 Weight (Pounds): 489 Objective GEN: NAD HEENT: NCAT, MMM Respiratory/Chest: CTAB, No W Cardiovascular: RRR, S1, S2 Abdomen: Soft, ND Ext. B/L Swelling and moderate erythema with skin lesions Laboratory Tests Test 12/26/18 17:30 Urine Color Pale yellow Urine Appearance Clear Urine pH 6.5 (4.5-8.0) Urine Specific [place] 1.010 (1.005-1.035) Urine Protein Negative (NEGATIVE) Urine Glucose (UA) Negative (NEGATIVE) Urine Ketones Negative (NEGATIVE) Urine Blood Negative (NEGATIVE) Urine Nitrite Negative (NEGATIVE) Urine Bilirubin Negative (NEGATIVE) Urine Urobilinogen Normal MG/DL (0.0-1.0) Urine Leukocyte Esterase Negative (NEGATIVE) Urine RBC 0-2 /HPF (0 - 0) H Urine WBC 0-2 /HPF (0 - 0) Urine Squamous Epithelial Cells None /LPF (NONE/OCC) Urine Bacteria Few /HPF (NONE) Urine Osmolality 312 mOsm/kg (429-449) L Urine Random Sodium 66 mmol/L (20-110) Current Medications Medications (Trade) Dose Ordered Sig/Luis Route PRN Reason Start Time Stop Time Status Last Admin Dose Admin Acetaminophen (Tylenol) 650 mg Q4H PRN ORAL fever 12/15/18 14:54 01/14/19 14:53 Amlodipine Besylate (Norvasc) 2.5 mg DAILY ORAL 12/27/18 09:00 01/26/19 08:59 Atorvastatin Calcium (Lipitor) 80 mg BEDTIME ORAL 12/15/18 21:00 01/14/19 20:59 12/26/18 20:22 Chlorhexidine Gluconate (Ruby-Hex 2%) 1 applic DAILY@2000 TOPIC 12/22/18 20:00 01/21/19 19:59 12/26/18 20:21 Clonidine HCl (Catapres Tab) 0.1 mg Q4H PRN ORAL For High Blood Pressure 12/15/18 14:56 01/14/19 14:55 Clopidogrel Bisulfate (Plavix) 75 mg DAILY ORAL 12/16/18 09:00 01/14/19 08:59 12/27/18 08:00 Daptomycin 900 mg/ Sodium Chloride 55 ml @ 110 mls/hr Q24H IV 12/25/18 14:00 01/01/19 13:59 12/26/18 14:58 Dextrose (Dextrose 50%) 25 ml Q30M PRN IV Hypoglycemia 12/15/18 15:15 01/13/19 23:44 Dextrose (Dextrose 50%) 50 ml Q30M PRN IV Hypoglycemia 12/15/18 15:15 01/13/19 23:44 Duloxetine HCl (Cymbalta) 30 mg DAILY ORAL 12/16/18 09:00 01/14/19 08:59 12/27/18 08:09 Furosemide (Lasix) 20 mg ONCE IV 12/21/18 17:00 01/20/19 16:59 12/26/18 17:04 Furosemide (Lasix) 20 mg Q6HR IV 12/22/18 00:00 01/21/19 00:00 12/27/18 05:03 Gabapentin (Neurontin) 600 mg THREE TIMES A DAY ORAL 12/15/18 18:00 01/14/19 08:59 12/27/18 08:01 Heparin Sodium (Porcine) (Heparin 5000 units/ml) 5,000 units EVERY 12 HOURS SUBQ 12/15/18 21:00 01/14/19 08:59 12/27/18 08:08 Hydromorphone HCl (Dilaudid) 3 mg Q4H PRN IVP Severe Pain (Pain Scale 7-10) 12/25/18 10:00 01/01/19 09:59 12/27/18 08:00 Levetiracetam (Keppra) 1,000 mg Q12HR ORAL 12/19/18 09:00 01/18/19 08:59 12/27/18 08:00 Nitroglycerin (Ntg) 0.4 mg Q5M X 3 DOSES PRN SL Prn Chest Pain 12/15/18 14:45 01/13/19 23:44 Ondansetron HCl (Zofran) 4 mg Q6H PRN IVP Nausea & Vomiting 12/15/18 14:55 01/14/19 14:54 12/17/18 10:19 Polyethylene Glycol (Miralax) 17 gm HSPRN PRN ORAL Constipation 12/15/18 14:55 01/14/19 14:54 Pregabalin (Lyrica) 100 mg THREE TIMES A DAY ORAL 12/26/18 09:00 01/19/19 22:59 12/27/18 08:01 Promethazine HCl/ Codeine (Phenergan with Codeine) 5 ml Q4H PRN ORAL For Cough 12/15/18 14:55 01/14/19 14:54 Trazodone HCl (Desyrel) 100 mg BEDTIME ORAL 12/15/18 21:00 01/14/19 20:59 12/26/18 20:22 Elliot Chauhan MD Dec 27, 2018 10:31
[2018-12-27 12:00] VITALS: BP 113/71
--- NOTE | 2018-12-27 12:33 | General Progress Note ---
Assessment/Plan Status: stable, progressing Assessment/Plan: (1) Lumbar DDD (2) Lumbar Spondylosis (3) Lumbar Radiculopathy (4) Morbid Obesity (5) Right knee pain (6) Right knee OA h/o ORIF We will continue patient on Dilaudid as needed. D/w Dr. Magaña and he concurred. Subjective Date patient seen: Dec 27, 2018 Time patient seen: 11:30 - am Allergies: Coded Allergies: ASPIRIN (Verified Allergy, Unknown, 07/14/18) KETOROLAC (Verified Allergy, Unknown, 07/14/18) PENICILLINS (Verified Allergy, Unknown, 12/23/18) tolerated Ancef on 08/2018 Subjective REVIEW OF SYSTEMS: Denies rash, fever, chills, sweating, dizziness, drowsiness, blurred vision, sore throat, change in weight. No nausea, vomiting, diarrhea, or blood in the stool or urine. No bowel or bladder incontinence. No dysuria. He is complaining of low back pain SUBJECTIVE: Patient laying in bed continues to c/o pain which has been tolerated on the Dilaudid. No signs of pain or distress at this time. Objective Last 24 Hour Vital Signs Date Time Temp Pulse Resp B/P (MAP) Pulse Ox O2 Delivery O2 Flow Rate FiO2 12/27/18 09:00 88 133/74 12/27/18 08:30 98.9 12/27/18 08:00 100.0 88 20 133/74 (93) 93 12/27/18 04:00 98.9 89 19 123/65 (84) 95 12/27/18 00:00 98.2 78 18 120/67 (84) 94 12/26/18 21:00 Room Air 12/26/18 20:00 98.1 81 20 147/85 (105) 93 12/26/18 16:00 98.7 82 17 137/73 (94) 95 Intake and Output 12/26/18 12/27/18 18:59 06:59 Intake Total 1555 ml 100 ml Output Total 500 ml Balance 1555 ml -400 ml IV Total 55 ml 100 ml Other 1500 ml Output Urine Total 500 ml # Voids 8 Laboratory Tests 12/26/18 17:30: Urine Color Pale yellow, Urine Appearance Clear, Urine pH 6.5, Urine Specific [place] 1.010, Urine Protein Negative, Urine Glucose (UA) Negative, Urine Ketones Negative, Urine Blood Negative, Urine Nitrite Negative, Urine Bilirubin Negative, Urine Urobilinogen Normal, Urine Leukocyte Esterase Negative, Urine RBC 0-2H, Urine WBC 0-2, Urine Squamous Epithelial Cells None, Urine Bacteria Few, Urine Osmolality 312L, Urine Random Sodium 66 Height (Feet): 5 Height (Inches): 10.00 Weight (Pounds): 489 Objective GENERAL: Alert, awake, and oriented x3. LUNGS: Decreased breath sounds bilaterally. HEART: S1 and S2, regular. ABDOMEN: Obese. EXTREMITIES: No cyanosis. No clubbing. No edema. NEURO: No changes. Eliezer Nicole Dec 27, 2018 12:33
--- NOTE | 2018-12-27 12:45 | Progress Note ---
DATE: 12/27/2018 SUBJECTIVE: This is a 53-year-old patient, status post cerebrovascular accident, but this patient still has lot of anxiety, depression, and mood lability worsened by stress of his medical illness. That is why, his attending has requested daily psychiatric consultation. MENTAL STATUS EXAMINATION: This is a 53-year-old male. Appearance is disheveled. Attitude, irritable and agitated. Affect, guarded and restricted. Intellect poor. Mood, depressed and anxious, agitated. Motor activity, psychomotor agitation. Attention span is poor. Orientation x2. Speech is low volume and slurred. Thought process, disorganized and illogical. Thought content, he has paranoid delusions. Insight and judgment is poor. DIAGNOSIS: Major depressive disorder, mild, recurrent, without psychotic features, rule out generalized anxiety disorder. PLAN: Cymbalta 30 mg a day, Neurontin 600 mg three times a day, trazodone 100 at bedtime for insomnia. Provided him with 20 minutes of cognitive behavioral therapy to help him identify his automatic negative thoughts, help him convert those negative thoughts to more positive thoughts to help him reduce depression, anxiety, and mood lability and help him to have more adaptive behavioral pattern with 20 minutes of cognitive behavioral therapy session. Seen and assessed in his room. Chart reviewed. Discussed with staff. Laney Mcghee M.D. DR: GUTIERREZ JOB#: [id number] CC:
[2018-12-27] MEDS: NS IV SCH (14:10)
[2018-12-27] MEDS: DAPTOMYCIN IV SCH (14:10)
--- NOTE | 2018-12-27 14:49 | NUR ---
RN [facility] PULLER SI:PERIPHERAL EDEMA . LEFT SIDED WEAKNESS VS: BP 104/69, P 20, T 100.0, RR 20, SpO2 94 RBC 4.33, H&H 13.0/38.0, BUN 19 IS:DAPTOMYCIN 55ml IV LASIX 20mg IV DESYREL 100mg DILAUDID 3mg LYRICA 100mg GABAPENTIN 600mg PLAVIX 75mg MED/SURG STATUS
--- NOTE | 2018-12-27 15:40 | Nephrology Progress Note ---
Assessment/Plan Problem List: (1) Hyponatremia (2) Morbid obesity (3) COPD (chronic obstructive pulmonary disease) Plan today's lab's work up pending Subjective ROS Limited/Unobtainable: No Objective Objective Last 24 Hour Vital Signs Date Time Temp Pulse Resp B/P (MAP) Pulse Ox O2 Delivery O2 Flow Rate FiO2 12/27/18 12:39 98.9 12/27/18 12:00 99.2 82 20 113/71 (85) 94 12/27/18 09:00 88 133/74 12/27/18 09:00 Room Air 12/27/18 08:00 100.0 88 20 133/74 (93) 93 12/27/18 04:00 98.9 89 19 123/65 (84) 95 12/27/18 00:00 98.2 78 18 120/67 (84) 94 12/26/18 21:00 Room Air 12/26/18 20:00 98.1 81 20 147/85 (105) 93 12/26/18 16:00 98.7 82 17 137/73 (94) 95 Intake and Output 12/26/18 12/27/18 19:00 07:00 Intake Total 1555 ml 100 ml Output Total 500 ml Balance 1555 ml -400 ml IV Total 55 ml 100 ml Other 1500 ml Output Urine Total 500 ml # Voids 5 3 Laboratory Tests 12/26/18 17:30: Urine Color Pale yellow, Urine Appearance Clear, Urine pH 6.5, Urine Specific Fab[place] 1.010, Urine Protein Negative, Urine Glucose (UA) Negative, Urine Ketones Negative, Urine Blood Negative, Urine Nitrite Negative, Urine Bilirubin Negative, Urine Urobilinogen Normal, Urine Leukocyte Esterase Negative, Urine RBC 0-2H, Urine WBC 0-2, Urine Squamous Epithelial Cells None, Urine Bacteria Few, Urine Osmolality 312L, Urine Random Sodium 66 Height (Feet): 5 Height (Inches): 10.00 Weight (Pounds): 489 General Appearance: no apparent distress Objective no change Devante Taylor MD Dec 27, 2018 15:40
[2018-12-27 16:00] VITALS: BP 134/94
--- NOTE | 2018-12-27 19:35 | NUR ---
HAND-OFF: Report given to MICAELA Cuadra.
--- NOTE | 2018-12-27 19:42 | NUR ---
NURSE NOTES: Pt received in bed at lowest position, call light within reach, able to make needs known, no c/o pain at the moment, just reminding me he wants his pain medication 8:15pm, will continue to monitor.
[2018-12-27 20:00] VITALS: BP 104/69
[2018-12-27 20:09] LABS: ANION GAP 2 mmol/L (5-15); BLOOD UREA NITROGEN 19 mg/dL (7-18); CALCIUM 8.6 MG/DL (8.5-10.1); CARBON DIOXIDE 35 MMOL/L (21-32); CHLORIDE 99 MMOL/L (98-107); CREATININE 1.2 MG/DL (0.55-1.30); SODIUM 136 MMOL/L (136-145)
[2018-12-27] MEDS: TraZODone 100mg tab ORAL SCH (20:14)
[2018-12-27] MEDS: Dyna-Hex 2% Top Sol 2oz TOPIC SCH (20:14)
[2018-12-27] MEDS: Atorvastatin 80mg tab ORAL SCH (20:15)
[2018-12-27 20:18] LABS: BASOPHILS % (AUTO) 1.5 % (0.0-2.0); EOSINOPHILS % (AUTO) 3.5 % (0.0-3.0); MEAN CORPUSCULAR VOLUME 88 FL (80-99); MONOCYTES % (AUTO) 9.6 % (1.0-10.0); NEUTROPHILS % (AUTO) 54.4 % (45.0-75.0); PLATELET COUNT 188 K/UL (150-450); RED BLOOD COUNT 4.33 M/UL (4.70-6.10); RED CELL DISTRIBUTION WIDTH 12.7 % (11.6-14.8); WHITE BLOOD COUNT 5.6 K/UL (4.8-10.8)
--- NOTE | 2018-12-27 22:24 | NUR ---
NURSE NOTES: Pt states he had a seizure, that he woke up jerking, that he was not awake when it happened, he also states he was sitting on the toilet fell asleep and woke up jerking and it was a seizure. They were not observed by myself or any other staff member. Left voicemail for Dr. Taylor.
--- NOTE | 2018-12-27 23:55 | Cardiology Progress Note ---
Assessment/Plan Assessment/Plan 1. Morbid obesity with pannus formation, normal LV systolic and diastolic function per recent echo, clear for "removal of pannus". 2. Chronic venous insufficiency. 3. HTN, well controlled, continue amlodipine. 4. COPD 5. Seizure D/O Subjective Subjective No cardiac events is reported. Objective Last 24 Hour Vital Signs Date Time Temp Pulse Resp B/P (MAP) Pulse Ox O2 Delivery O2 Flow Rate FiO2 12/27/18 21:00 Room Air 12/27/18 20:00 98.5 89 19 104/69 (81) 95 12/27/18 16:44 98.9 12/27/18 16:00 98.6 91 20 134/94 (107) 95 12/27/18 12:00 99.2 82 20 113/71 (85) 94 12/27/18 09:00 88 133/74 12/27/18 09:00 Room Air 12/27/18 08:00 100.0 88 20 133/74 (93) 93 12/27/18 04:00 98.9 89 19 123/65 (84) 95 12/27/18 00:00 98.2 78 18 120/67 (84) 94 Intake and Output 12/26/18 12/27/18 19:00 07:00 Intake Total 1555 ml 100 ml Output Total 500 ml Balance 1555 ml -400 ml IV Total 55 ml 100 ml Other 1500 ml Output Urine Total 500 ml # Voids 5 3 2D Echo: Normal LV systolic function, RVSP 34 mmHg, RAP elevated at 15 mmHg Laboratory Tests Test 12/27/18 19:55 White Blood Count 5.6 K/UL (4.8-10.8) Red Blood Count 4.33 M/UL (4.70-6.10) L Hemoglobin 13.0 G/DL (14.2-18.0) L Hematocrit 38.0 % (42.0-52.0) L Mean Corpuscular Volume 88 FL (80-99) Mean Corpuscular Hemoglobin 30.1 PG (27.0-31.0) Mean Corpuscular Hemoglobin Concent 34.3 G/DL (32.0-36.0) Red Cell Distribution Width 12.7 % (11.6-14.8) Platelet Count 188 K/UL (150-450) Mean Platelet Volume 4.9 FL (6.5-10.1) L Neutrophils (%) (Auto) 54.4 % (45.0-75.0) Lymphocytes (%) (Auto) 31.0 % (20.0-45.0) Monocytes (%) (Auto) 9.6 % (1.0-10.0) Eosinophils (%) (Auto) 3.5 % (0.0-3.0) H Basophils (%) (Auto) 1.5 % (0.0-2.0) Sodium Level 136 MMOL/L (136-145) Potassium Level 4.0 MMOL/L (3.5-5.1) Chloride Level 99 MMOL/L (98-107) Carbon Dioxide Level 35 MMOL/L (21-32) H Anion Gap 2 mmol/L (5-15) L Blood Urea Nitrogen 19 mg/dL (7-18) H Creatinine 1.2 MG/DL (0.55-1.30) Estimat Glomerular Filtration Rate > 60 mL/min (>60) Glucose Level 140 MG/DL (74-106) H Calcium Level 8.6 MG/DL (8.5-10.1) Objective HEENT: Atraumatic and normocephalic. Anicteric. Pupils are equal, round, and reactive to light and accommodation. NECK: JVP cannot be assessed due to obesity. No carotid bruit. CARDIOVASCULAR: Normal S1, S2. Regular rate and rhythm. No murmurs, gallops, or rubs. PMI is at fourth intercostal space at the midclavicular line. LUNGS: Clear to auscultation bilaterally. ABDOMEN: Distended due to pannus formation, cannot palpate hepatosplenomegaly. Positive bowel sounds. EXTREMITIES: No lower extremity edema, clubbing or cyanosis. Carlos Martins MD Dec 27, 2018 23:55
[2018-12-28] VITALS: BP 140/69
[2018-12-28 04:00] VITALS: BP 125/81
--- NOTE | 2018-12-28 07:26 | NUR ---
HAND-OFF: Report given to MICAELA Shearer.
[2018-12-28 08:00] VITALS: BP 131/82
[2018-12-28] MEDS: DULoxetine 30mg cap ORAL SCH (08:30)
[2018-12-28] MEDS: Lyrica 50mg cap ORAL SCH ×3 (08:30→17:58)
[2018-12-28] MEDS: Heparin 5000 units/ml inj SUBQ SCH ×2 (08:34→21:11)
--- NOTE | 2018-12-28 08:49 | General Progress Note ---
Subjective Allergies: Coded Allergies: ASPIRIN (Verified Allergy, Unknown, 07/14/18) KETOROLAC (Verified Allergy, Unknown, 07/14/18) PENICILLINS (Verified Allergy, Unknown, 12/23/18) tolerated Ancef on 08/2018 Eliezer Nicole Dec 28, 2018 08:49
[2018-12-28 09:16] LABS: BASOPHILS % (AUTO) 0.8 % (0.0-2.0); EOSINOPHILS % (AUTO) 3.8 % (0.0-3.0); HEMATOCRIT 40.2 % (42.0-52.0); HEMOGLOBIN 13.5 G/DL (14.2-18.0); LYMPHOCYTES % (AUTO) 25.5 % (20.0-45.0); MEAN CORPUSCULAR VOLUME 91 FL (80-99); MONOCYTES % (AUTO) 8.2 % (1.0-10.0); NEUTROPHILS % (AUTO) 61.8 % (45.0-75.0); PLATELET COUNT 215 K/UL (150-450); RED BLOOD COUNT 4.43 M/UL (4.70-6.10); RED CELL DISTRIBUTION WIDTH 12.9 % (11.6-14.8); WHITE BLOOD COUNT 5.1 K/UL (4.8-10.8)
[2018-12-28 09:31] LABS: ANION GAP 3 mmol/L (5-15); BLOOD UREA NITROGEN 17 mg/dL (7-18); CALCIUM 8.8 MG/DL (8.5-10.1); CARBON DIOXIDE 37 MMOL/L (21-32); CHLORIDE 98 MMOL/L (98-107); POTASSIUM 3.5 MMOL/L (3.5-5.1); SODIUM 138 MMOL/L (136-145)
--- NOTE | 2018-12-28 10:49 | Nephrology Progress Note ---
Assessment/Plan Problem List: (1) Hyponatremia (2) Morbid obesity (3) COPD (chronic obstructive pulmonary disease) Plan Low Na resolved cont per consultants Subjective ROS Limited/Unobtainable: No Objective Objective Last 24 Hour Vital Signs Date Time Temp Pulse Resp B/P (MAP) Pulse Ox O2 Delivery O2 Flow Rate FiO2 12/28/18 09:02 99.4 12/28/18 09:00 Room Air 12/28/18 08:32 97 140/86 12/28/18 08:00 98.8 89 19 131/82 (98) 96 12/28/18 04:00 99.4 84 19 125/81 (96) 94 12/28/18 00:00 98.5 83 19 140/69 (92) 98 12/27/18 21:00 Room Air 12/27/18 20:00 98.5 89 19 104/69 (81) 95 12/27/18 16:00 98.6 91 20 134/94 (107) 95 12/27/18 12:00 99.2 82 20 113/71 (85) 94 Intake and Output 12/27/18 12/28/18 18:59 06:59 Intake Total 1055 ml Balance 1055 ml Intake Oral 1000 ml IV Total 55 ml # Voids 3 Laboratory Tests 12/27/18 19:55: White Blood Count 5.6, Red Blood Count 4.33L, Hemoglobin 13.0L, Hematocrit 38.0L , Mean Corpuscular Volume 88, Mean Corpuscular Hemoglobin 30.1, Mean Corpuscular Hemoglobin Concent 34.3, Red Cell Distribution Width 12.7, Platelet Count 188, Mean Platelet Volume 4.9L, Neutrophils (%) (Auto) 54.4, Lymphocytes ( %) (Auto) 31.0, Monocytes (%) (Auto) 9.6, Eosinophils (%) (Auto) 3.5H, Basophils (%) (Auto) 1.5, Sodium Level 136, Potassium Level 4.0, Chloride Level 99, Carbon Dioxide Level 35H, Anion Gap 2L, Blood Urea Nitrogen 19H, Creatinine 1.2, Estimat Glomerular Filtration Rate > 60, Glucose Level 140H, Calcium Level 8.6 12/28/18 09:00: White Blood Count 5.1, Red Blood Count 4.43L, Hemoglobin 13.5L, Hematocrit 40.2L , Mean Corpuscular Volume 91, Mean Corpuscular Hemoglobin 30.5, Mean Corpuscular Hemoglobin Concent 33.6, Red Cell Distribution Width 12.9, Platelet Count 215, Mean Platelet Volume 5.4L, Neutrophils (%) (Auto) 61.8, Lymphocytes ( %) (Auto) 25.5, Monocytes (%) (Auto) 8.2, Eosinophils (%) (Auto) 3.8H, Basophils (%) (Auto) 0.8, Sodium Level 138, Potassium Level 3.5, Chloride Level 98, Carbon Dioxide Level 37H, Anion Gap 3L, Blood Urea Nitrogen 17, Creatinine 1.0, Estimat Glomerular Filtration Rate > 60, Glucose Level 122H, Calcium Level 8.8 Height (Feet): 5 Height (Inches): 10.00 Weight (Pounds): 489 General Appearance: no apparent distress Objective no change Devante Taylor MD Dec 28, 2018 10:49
[2018-12-28 11:10] LABS: ALANINE AMINOTRANSFERASE 35 U/L (12-78); ALKALINE PHOSPHATASE 166 U/L (46-116); ASPARTATE AMINO TRANSFERASE 47 U/L (15-37); BILIRUBIN,DIRECT < 0.1 MG/DL (0.0-0.3); BILIRUBIN,TOTAL 0.4 MG/DL (0.2-1.0); PHOSPHORUS 3.3 MG/DL (2.5-4.9)
[2018-12-28 12:00] VITALS: BP 119/70
--- NOTE | 2018-12-28 12:03 | Pulmonology Progress Note ---
Assessment/Plan Problems: (1) Morbid obesity (2) Peripheral edema (3) Cellulitis (4) Seizures (5) Cerebrovascular accident (6) Left-sided weakness (7) COPD (chronic obstructive pulmonary disease) (8) Right heart failure (9) Lumbar spondylosis (10) ADALBERTO (obstructive sleep apnea) Assessment/Plan has cold now all meds /notes reviewed pt/ot respiratory treatment titrate fio2 to sat of 92% dvt prophylaxis awaiting for surgery to be scheduled. Subjective ROS Limited/Unobtainable: No Constitutional: Reports: no symptoms HEENT: Repors: no symptoms Respiratory: Reports: no symptoms Allergies: Coded Allergies: ASPIRIN (Verified Allergy, Unknown, 07/14/18) KETOROLAC (Verified Allergy, Unknown, 07/14/18) PENICILLINS (Verified Allergy, Unknown, 12/23/18) tolerated Ancef on 08/2018 Objective Last 24 Hour Vital Signs Date Time Temp Pulse Resp B/P (MAP) Pulse Ox O2 Delivery O2 Flow Rate FiO2 12/28/18 09:02 99.4 12/28/18 09:00 Room Air 12/28/18 08:32 97 140/86 12/28/18 08:00 98.8 89 19 131/82 (98) 96 12/28/18 04:00 99.4 84 19 125/81 (96) 94 12/28/18 00:00 98.5 83 19 140/69 (92) 98 12/27/18 21:00 Room Air 12/27/18 20:00 98.5 89 19 104/69 (81) 95 12/27/18 16:00 98.6 91 20 134/94 (107) 95 12/27/18 12:00 99.2 82 20 113/71 (85) 94 Intake and Output 12/27/18 12/28/18 18:59 06:59 Intake Total 1055 ml Balance 1055 ml Intake Oral 1000 ml IV Total 55 ml # Voids 3 Objective HEENT: normocephalic, atraumatic Respiratory/Chest: chest wall non-tender, lungs clear Cardiovascular: normal peripheral pulses, normal rate Abdomen: normal bowel sounds, no organomegaly, massive fat on abdomen Extremities: no cyanosis Skin: no lesions Laboratory Tests 12/27/18 19:55: White Blood Count 5.6, Red Blood Count 4.33L, Hemoglobin 13.0L, Hematocrit 38.0L , Mean Corpuscular Volume 88, Mean Corpuscular Hemoglobin 30.1, Mean Corpuscular Hemoglobin Concent 34.3, Red Cell Distribution Width 12.7, Platelet Count 188, Mean Platelet Volume 4.9L, Neutrophils (%) (Auto) 54.4, Lymphocytes ( %) (Auto) 31.0, Monocytes (%) (Auto) 9.6, Eosinophils (%) (Auto) 3.5H, Basophils (%) (Auto) 1.5, Sodium Level 136, Potassium Level 4.0, Chloride Level 99, Carbon Dioxide Level 35H, Anion Gap 2L, Blood Urea Nitrogen 19H, Creatinine 1.2, Estimat Glomerular Filtration Rate > 60, Glucose Level 140H, Calcium Level 8.6 12/28/18 09:00: White Blood Count 5.1, Red Blood Count 4.43L, Hemoglobin 13.5L, Hematocrit 40.2L , Mean Corpuscular Volume 91, Mean Corpuscular Hemoglobin 30.5, Mean Corpuscular Hemoglobin Concent 33.6, Red Cell Distribution Width 12.9, Platelet Count 215, Mean Platelet Volume 5.4L, Neutrophils (%) (Auto) 61.8, Lymphocytes ( %) (Auto) 25.5, Monocytes (%) (Auto) 8.2, Eosinophils (%) (Auto) 3.8H, Basophils (%) (Auto) 0.8, Sodium Level 138, Potassium Level 3.5, Chloride Level 98, Carbon Dioxide Level 37H, Anion Gap 3L, Blood Urea Nitrogen 17, Creatinine 1.0, Estimat Glomerular Filtration Rate > 60, Glucose Level 122H, Calcium Level 8.8, Phosphorus Level 3.3, Magnesium Level 1.8, Total Bilirubin 0.4, Direct Bilirubin < 0.1, Aspartate Amino Transf (AST/SGOT) 47H, Alanine Aminotransferase (ALT/SGPT) 35, Alkaline Phosphatase 166H, Total Protein 7.1, Albumin 3.0L Current Medications Medications (Trade) Dose Ordered Sig/Luis Route PRN Reason Start Time Stop Time Status Last Admin Dose Admin Acetaminophen (Tylenol) 650 mg Q4H PRN ORAL fever 12/15/18 14:54 01/14/19 14:53 Amlodipine Besylate (Norvasc) 2.5 mg DAILY ORAL 12/27/18 09:00 01/26/19 08:59 12/28/18 08:32 Atorvastatin Calcium (Lipitor) 80 mg BEDTIME ORAL 12/15/18 21:00 01/14/19 20:59 12/27/18 20:15 Chlorhexidine Gluconate (Ruby-Hex 2%) 1 applic DAILY@2000 TOPIC 12/22/18 20:00 01/21/19 19:59 12/27/18 20:14 Clonidine HCl (Catapres Tab) 0.1 mg Q4H PRN ORAL For High Blood Pressure 12/15/18 14:56 01/14/19 14:55 Clopidogrel Bisulfate (Plavix) 75 mg DAILY ORAL 12/16/18 09:00 01/14/19 08:59 12/28/18 08:32 Daptomycin 900 mg/ Sodium Chloride 55 ml @ 110 mls/hr Q24H IV 12/25/18 14:00 01/01/19 13:59 12/27/18 14:10 Dextrose (Dextrose 50%) 25 ml Q30M PRN IV Hypoglycemia 12/15/18 15:15 01/13/19 23:44 Dextrose (Dextrose 50%) 50 ml Q30M PRN IV Hypoglycemia 12/15/18 15:15 01/13/19 23:44 Duloxetine HCl (Cymbalta) 30 mg DAILY ORAL 12/16/18 09:00 01/14/19 08:59 12/28/18 08:30 Furosemide (Lasix) 20 mg ONCE IV 12/21/18 17:00 01/20/19 16:59 12/27/18 16:14 Furosemide (Lasix) 20 mg Q6HR IV 12/22/18 00:00 01/21/19 00:00 12/28/18 05:35 Gabapentin (Neurontin) 600 mg THREE TIMES A DAY ORAL 12/15/18 18:00 01/14/19 08:59 12/28/18 08:30 Heparin Sodium (Porcine) (Heparin 5000 units/ml) 5,000 units EVERY 12 HOURS SUBQ 12/15/18 21:00 01/14/19 08:59 12/28/18 08:34 Hydromorphone HCl (Dilaudid) 3 mg Q4H PRN IVP Severe Pain (Pain Scale 7-10) 12/25/18 10:00 01/01/19 09:59 12/28/18 08:32 Levetiracetam (Keppra) 1,000 mg Q12HR ORAL 12/19/18 09:00 01/18/19 08:59 12/28/18 08:32 Nitroglycerin (Ntg) 0.4 mg Q5M X 3 DOSES PRN SL Prn Chest Pain 12/15/18 14:45 01/13/19 23:44 Ondansetron HCl (Zofran) 4 mg Q6H PRN IVP Nausea & Vomiting 12/15/18 14:55 01/14/19 14:54 12/17/18 10:19 Polyethylene Glycol (Miralax) 17 gm HSPRN PRN ORAL Constipation 12/15/18 14:55 01/14/19 14:54 Pregabalin (Lyrica) 100 mg THREE TIMES A DAY ORAL 12/26/18 09:00 01/19/19 22:59 12/28/18 08:30 Promethazine HCl/ Codeine (Phenergan with Codeine) 5 ml Q4H PRN ORAL For Cough 12/15/18 14:55 01/14/19 14:54 Trazodone HCl (Desyrel) 100 mg BEDTIME ORAL 12/15/18 21:00 01/14/19 20:59 12/27/18 20:14 Bill Dixon MD Dec 28, 2018 12:03
--- NOTE | 2018-12-28 13:13 | Podiatric Progress Note ---
Assessment/Plan Patient Fredo Conde is a 53 year old male who was admitted on December 14, 2018 at 17: 25 with Assessment/Plan A: Morbid obesity Chronic Venous Insufficiency COPD HTN Seizure Disorder Cellulitis to B/L LE. P: - Pt seen and evaluated. - Discuss findings with patient. - Peripheral vascular disease with venous stasis ulceration and venous stasis cellulitis noted to B/L LE as noted on exam. - Cont Qdaily Xeroform to the villarreal with light dressing. - Cont current tx plan per specialists. - Podiatry will cont to monitor. Subjective Reason for consult B/L LE Venous stasis ulcerations. Allergies: Coded Allergies: ASPIRIN (Verified Allergy, Unknown, 07/14/18) KETOROLAC (Verified Allergy, Unknown, 07/14/18) PENICILLINS (Verified Allergy, Unknown, 12/23/18) tolerated Ancef on 08/2018 Subjective Pt seen bedside for B/L venous stasis ulcerations, Confirms nursing is changing dressings Qdaily. Relates moderate pain. Denies any recent acute SOI to B/L LE. He states he feels they are healing since receiving local wound care. Objective Exam Last 24 Hour Vital Signs Date Time Temp Pulse Resp B/P (MAP) Pulse Ox O2 Delivery O2 Flow Rate FiO2 12/28/18 09:02 99.4 12/28/18 09:00 Room Air 12/28/18 08:32 97 140/86 12/28/18 08:00 98.8 89 19 131/82 (98) 96 12/28/18 04:00 99.4 84 19 125/81 (96) 94 12/28/18 00:00 98.5 83 19 140/69 (92) 98 12/27/18 21:00 Room Air 12/27/18 20:00 98.5 89 19 104/69 (81) 95 12/27/18 16:00 98.6 91 20 134/94 (107) 95 Laboratory Tests Test 12/27/18 19:55 12/28/18 09:00 White Blood Count 5.6 K/UL (4.8-10.8) 5.1 K/UL (4.8-10.8) Red Blood Count 4.33 M/UL (4.70-6.10) L 4.43 M/UL (4.70-6.10) L Hemoglobin 13.0 G/DL (14.2-18.0) L 13.5 G/DL (14.2-18.0) L Hematocrit 38.0 % (42.0-52.0) L 40.2 % (42.0-52.0) L Mean Corpuscular Volume 88 FL (80-99) 91 FL (80-99) Mean Corpuscular Hemoglobin 30.1 PG (27.0-31.0) 30.5 PG (27.0-31.0) Mean Corpuscular Hemoglobin Concent 34.3 G/DL (32.0-36.0) 33.6 G/DL (32.0-36.0) Red Cell Distribution Width 12.7 % (11.6-14.8) 12.9 % (11.6-14.8) Platelet Count 188 K/UL (150-450) 215 K/UL (150-450) Mean Platelet Volume 4.9 FL (6.5-10.1) L 5.4 FL (6.5-10.1) L Neutrophils (%) (Auto) 54.4 % (45.0-75.0) 61.8 % (45.0-75.0) Lymphocytes (%) (Auto) 31.0 % (20.0-45.0) 25.5 % (20.0-45.0) Monocytes (%) (Auto) 9.6 % (1.0-10.0) 8.2 % (1.0-10.0) Eosinophils (%) (Auto) 3.5 % (0.0-3.0) H 3.8 % (0.0-3.0) H Basophils (%) (Auto) 1.5 % (0.0-2.0) 0.8 % (0.0-2.0) Sodium Level 136 MMOL/L (136-145) 138 MMOL/L (136-145) Potassium Level 4.0 MMOL/L (3.5-5.1) 3.5 MMOL/L (3.5-5.1) Chloride Level 99 MMOL/L (98-107) 98 MMOL/L (98-107) Carbon Dioxide Level 35 MMOL/L (21-32) H 37 MMOL/L (21-32) H Anion Gap 2 mmol/L (5-15) L 3 mmol/L (5-15) L Blood Urea Nitrogen 19 mg/dL (7-18) H 17 mg/dL (7-18) Creatinine 1.2 MG/DL (0.55-1.30) 1.0 MG/DL (0.55-1.30) Estimat Glomerular Filtration Rate > 60 mL/min (>60) > 60 mL/min (>60) Glucose Level 140 MG/DL (74-106) H 122 MG/DL (74-106) H Calcium Level 8.6 MG/DL (8.5-10.1) 8.8 MG/DL (8.5-10.1) Phosphorus Level 3.3 MG/DL (2.5-4.9) Magnesium Level 1.8 MG/DL (1.8-2.4) Total Bilirubin 0.4 MG/DL (0.2-1.0) Direct Bilirubin < 0.1 MG/DL (0.0-0.3) Aspartate Amino Transf (AST/SGOT) 47 U/L (15-37) H Alanine Aminotransferase (ALT/SGPT) 35 U/L (12-78) Alkaline Phosphatase 166 U/L (46-116) H Total Protein 7.1 G/DL (6.4-8.2) Albumin 3.0 G/DL (3.4-5.0) L Microbiology Date/Time Source Procedure Growth Status 12/14/18 22:00 Nasal Nares MRSA Culture - Final NO METHICILLIN RESISTANT STAPH AUREUS... Complete 12/15/18 21:33 Rectum - Final NO CARBAPENEM-RESISTANT ENTEROBACTERI... Complete Dermatological Dermatological Narrative PODIATRY EXAMINATION: VASCULAR: +DP/PT pusles 1/4 with capillary filling time of 3 seconds. Large edematous legs, ankles, feet are noted to bilateral legs, pitting edema 2+ NEUROLOGICAL: Sharp and dull proprioception, protected threshold noted to be intact. MUSCULOSKELETAL: The patient is mobile. + 5/5 in all 4 quadrants. Range of motion is noted to be within normal limits. DERMATOLOGICAL: The patient with bilateral legs where cellulitis was noted distal to the knee just proximal to the ankle bilaterally, left greater than right. There are multiple superifical ulcerations noted to anterior tibia to B/L LE noted to the dermal layer, minimal serous drainage is noted There is periwound erythema. (-) purulence or malodor is noted. Cristhian Porter DPM Dec 28, 2018 13:13
--- NOTE | 2018-12-28 13:31 | NUR ---
RD ASSESSMENT & RECOMMENDATIONS SEE CARE ACTIVITY FOR COMPLETE ASSESSMENT DAILY ESTIMATED NEEDS: Needs based on obesity, pulmonary, 107kg abw 15-20 kcals/kg 4105-8662 total kcals 1-1.5 g protein/kg 107-161 g total protein 15-25ml/kcal mL/kg 4616-2196 total fluid mLs NUTRITION DIAGNOSIS: Decreased sodium and fat intake needs R/T cardiac h/o and morbid obesity as evidenced by h/o CHF, CVA, w/ BMI>50, @230% of [place] Body Weight. CURRENT DIET:Regular PO DIET RECOMMENDATIONS: REC DIET CHANGE TO -> CARDIAC ADDITIONAL RECOMMENDATIONS: * Obtain a standing weight as able or calibrated bedscale wt for accurate * Diet change to Cardiac * Pt not receptive to diet edu at this time * Monitor lytes closely while on diuretics, replete as needed
--- NOTE | 2018-12-28 13:35 | General Progress Note ---
Assessment/Plan Problem List: (1) Abdominal pannus ICD Codes: E65 - Localized adiposity SNOMED: 7621678684059 (2) Peripheral edema ICD Codes: R60.9 - Edema, unspecified SNOMED: 750497600 (3) Abdominal wall cellulitis ICD Codes: L03.311 - Cellulitis of abdominal wall SNOMED: 66611829 (4) Leg pain ICD Codes: M79.606 - Pain in leg, unspecified SNOMED: 49642721 (5) COPD (chronic obstructive pulmonary disease) ICD Codes: J44.9 - Chronic obstructive pulmonary disease, unspecified SNOMED: 27570698 (6) Seizures ICD Codes: R56.9 - Unspecified convulsions SNOMED: 82799936 (7) Morbid obesity ICD Codes: E66.01 - Morbid (severe) obesity due to excess calories SNOMED: 132332010 (8) Cerebrovascular accident ICD Codes: I63.9 - Cerebral infarction, unspecified SNOMED: 426803842 (9) Left-sided weakness ICD Codes: R53.1 - Weakness SNOMED: 557727993 Status: stable, progressing Assessment/Plan: pt diet neuro f/u wound care abx pain control cbc bmp am dc to snf Subjective Constitutional: Reports: weakness Allergies: Coded Allergies: ASPIRIN (Verified Allergy, Unknown, 07/14/18) KETOROLAC (Verified Allergy, Unknown, 07/14/18) PENICILLINS (Verified Allergy, Unknown, 12/23/18) tolerated Ancef on 08/2018 All Systems: reviewed and negative except above Subjective sleepy calm Objective Last 24 Hour Vital Signs Date Time Temp Pulse Resp B/P (MAP) Pulse Ox O2 Delivery O2 Flow Rate FiO2 12/28/18 09:02 99.4 12/28/18 09:00 Room Air 12/28/18 08:32 97 140/86 12/28/18 08:00 98.8 89 19 131/82 (98) 96 12/28/18 04:00 99.4 84 19 125/81 (96) 94 12/28/18 00:00 98.5 83 19 140/69 (92) 98 12/27/18 21:00 Room Air 12/27/18 20:00 98.5 89 19 104/69 (81) 95 12/27/18 16:00 98.6 91 20 134/94 (107) 95 Intake and Output 12/27/18 12/28/18 18:59 06:59 Intake Total 1055 ml Balance 1055 ml Intake Oral 1000 ml IV Total 55 ml # Voids 3 Laboratory Tests 12/27/18 19:55: White Blood Count 5.6, Red Blood Count 4.33L, Hemoglobin 13.0L, Hematocrit 38.0L , Mean Corpuscular Volume 88, Mean Corpuscular Hemoglobin 30.1, Mean Corpuscular Hemoglobin Concent 34.3, Red Cell Distribution Width 12.7, Platelet Count 188, Mean Platelet Volume 4.9L, Neutrophils (%) (Auto) 54.4, Lymphocytes ( %) (Auto) 31.0, Monocytes (%) (Auto) 9.6, Eosinophils (%) (Auto) 3.5H, Basophils (%) (Auto) 1.5, Sodium Level 136, Potassium Level 4.0, Chloride Level 99, Carbon Dioxide Level 35H, Anion Gap 2L, Blood Urea Nitrogen 19H, Creatinine 1.2, Estimat Glomerular Filtration Rate > 60, Glucose Level 140H, Calcium Level 8.6 12/28/18 09:00: White Blood Count 5.1, Red Blood Count 4.43L, Hemoglobin 13.5L, Hematocrit 40.2L , Mean Corpuscular Volume 91, Mean Corpuscular Hemoglobin 30.5, Mean Corpuscular Hemoglobin Concent 33.6, Red Cell Distribution Width 12.9, Platelet Count 215, Mean Platelet Volume 5.4L, Neutrophils (%) (Auto) 61.8, Lymphocytes ( %) (Auto) 25.5, Monocytes (%) (Auto) 8.2, Eosinophils (%) (Auto) 3.8H, Basophils (%) (Auto) 0.8, Sodium Level 138, Potassium Level 3.5, Chloride Level 98, Carbon Dioxide Level 37H, Anion Gap 3L, Blood Urea Nitrogen 17, Creatinine 1.0, Estimat Glomerular Filtration Rate > 60, Glucose Level 122H, Calcium Level 8.8, Phosphorus Level 3.3, Magnesium Level 1.8, Total Bilirubin 0.4, Direct Bilirubin < 0.1, Aspartate Amino Transf (AST/SGOT) 47H, Alanine Aminotransferase (ALT/SGPT) 35, Alkaline Phosphatase 166H, Total Protein 7.1, Albumin 3.0L Height (Feet): 5 Height (Inches): 10.00 Weight (Pounds): 489 General Appearance: lethargic EENT: normal ENT inspection Neck: normal alignment Cardiovascular: normal peripheral pulses, normal rate, regular rhythm Respiratory/Chest: chest wall non-tender, lungs clear, normal breath sounds Abdomen: normal bowel sounds, non tender, distended Extremities: normal inspection Edema: 2+ Arm (L), 2+ Arm (R), 2+ Leg (L), 2+ Leg (R), 2+ Pedal (L), 2+ Pedal ( R), 2+ Generalized Edema: mild edema Neurologic: responsive, motor weakness Skin: normal pigmentation, warm/dry Ernesto Nicole DO Dec 28, 2018 13:35
[2018-12-28] MEDS: NS IV SCH (14:57)
[2018-12-28] MEDS: DAPTOMYCIN IV SCH (14:57)
--- NOTE | 2018-12-28 15:14 | NUR ---
[employer] SI: PERIPHERAL EDEMA . LEFT SIDED WEAKNESS VS: BP 140/69, P 89, T 99.4, RR 19, SpO2 94 RBC 4.43, H&H 13.5/40.2, AST 47, ALK. PHOS 166 IS:DAPTOMYCIN 55ml IV DILAUDID 3mg LASIX 20mg IV LYRICA 100mg GABAPENTIN 600mg HEPARIN SUBQ PLAVIX 75mg KEPPRA 1,000mg NORVASC 2.5mg CYMBALTA 30mg MED/SURG STATUS
--- NOTE | 2018-12-28 15:19 | NUR ---
DISCHARGE PLANNING STILL AWAITING BED FOR PT AT [facility]. SPOKE TO BHANU AND HE SAID THEY WILL TAKE BACK PATIENT SOON ONE BECOME AVAILABLE
[2018-12-28 16:00] VITALS: BP 122/75
--- NOTE | 2018-12-28 17:49 | Infectious Diseases Prog Note ---
Assessment/Plan Assessment/Plan ssessment: B/l Leg cellulitis and panniculitis- in the setting of chronic venous stasis L side weakness/spasticity- thought be 2ry to seizures- r/O CVA- no active infectious process at present (pt afebrile- doubt meningitis at this moment) Afebrile No leukocytosis -CXR: No acute findings CVA HTN bipolar disorder w/ psychotic features tobacco abuse anxiety disorder chronic pain CHF seizure disorder COPD morbid obesity Dm2 HTN SNF resident Plan: IV Dapto d# 4 ( pt Cr increased 30% will avoid Vanco) 12/25 sp Bactrim #4/14 and add IV Ancef #3/14 for cellulitis -Monitor CBC/CMP, temperatures -neuro f/u- plan for CT head, include neck as lump in back of neck; however pt did not fit on CT scan machine due to weight -aspiration precautions -wound care per hospital protocol Subjective Allergies: Coded Allergies: ASPIRIN (Verified Allergy, Unknown, 07/14/18) KETOROLAC (Verified Allergy, Unknown, 07/14/18) PENICILLINS (Verified Allergy, Unknown, 12/23/18) tolerated Ancef on 08/2018 Subjective no new complain Objective Vital Signs Last 24 Hour Vital Signs Date Time Temp Pulse Resp B/P (MAP) Pulse Ox O2 Delivery O2 Flow Rate FiO2 12/28/18 16:00 98.3 81 19 122/75 (91) 97 12/28/18 13:10 99.4 12/28/18 12:00 98.3 79 19 119/70 (86) 98 12/28/18 09:00 Room Air 12/28/18 08:32 97 140/86 12/28/18 08:00 98.8 89 19 131/82 (98) 96 12/28/18 04:00 99.4 84 19 125/81 (96) 94 12/28/18 00:00 98.5 83 19 140/69 (92) 98 12/27/18 21:00 Room Air 12/27/18 20:00 98.5 89 19 104/69 (81) 95 Height (Feet): 5 Height (Inches): 10.00 Weight (Pounds): 489 HEENT: anicteric Respiratory/Chest: normal breath sounds Cardiovascular: regular rhythm Abdomen: soft, non tender Laboratory Tests Test 12/27/18 19:55 12/28/18 09:00 White Blood Count 5.6 K/UL (4.8-10.8) 5.1 K/UL (4.8-10.8) Red Blood Count 4.33 M/UL (4.70-6.10) L 4.43 M/UL (4.70-6.10) L Hemoglobin 13.0 G/DL (14.2-18.0) L 13.5 G/DL (14.2-18.0) L Hematocrit 38.0 % (42.0-52.0) L 40.2 % (42.0-52.0) L Mean Corpuscular Volume 88 FL (80-99) 91 FL (80-99) Mean Corpuscular Hemoglobin 30.1 PG (27.0-31.0) 30.5 PG (27.0-31.0) Mean Corpuscular Hemoglobin Concent 34.3 G/DL (32.0-36.0) 33.6 G/DL (32.0-36.0) Red Cell Distribution Width 12.7 % (11.6-14.8) 12.9 % (11.6-14.8) Platelet Count 188 K/UL (150-450) 215 K/UL (150-450) Mean Platelet Volume 4.9 FL (6.5-10.1) L 5.4 FL (6.5-10.1) L Neutrophils (%) (Auto) 54.4 % (45.0-75.0) 61.8 % (45.0-75.0) Lymphocytes (%) (Auto) 31.0 % (20.0-45.0) 25.5 % (20.0-45.0) Monocytes (%) (Auto) 9.6 % (1.0-10.0) 8.2 % (1.0-10.0) Eosinophils (%) (Auto) 3.5 % (0.0-3.0) H 3.8 % (0.0-3.0) H Basophils (%) (Auto) 1.5 % (0.0-2.0) 0.8 % (0.0-2.0) Sodium Level 136 MMOL/L (136-145) 138 MMOL/L (136-145) Potassium Level 4.0 MMOL/L (3.5-5.1) 3.5 MMOL/L (3.5-5.1) Chloride Level 99 MMOL/L (98-107) 98 MMOL/L (98-107) Carbon Dioxide Level 35 MMOL/L (21-32) H 37 MMOL/L (21-32) H Anion Gap 2 mmol/L (5-15) L 3 mmol/L (5-15) L Blood Urea Nitrogen 19 mg/dL (7-18) H 17 mg/dL (7-18) Creatinine 1.2 MG/DL (0.55-1.30) 1.0 MG/DL (0.55-1.30) Estimat Glomerular Filtration Rate > 60 mL/min (>60) > 60 mL/min (>60) Glucose Level 140 MG/DL (74-106) H 122 MG/DL (74-106) H Calcium Level 8.6 MG/DL (8.5-10.1) 8.8 MG/DL (8.5-10.1) Phosphorus Level 3.3 MG/DL (2.5-4.9) Magnesium Level 1.8 MG/DL (1.8-2.4) Total Bilirubin 0.4 MG/DL (0.2-1.0) Direct Bilirubin < 0.1 MG/DL (0.0-0.3) Aspartate Amino Transf (AST/SGOT) 47 U/L (15-37) H Alanine Aminotransferase (ALT/SGPT) 35 U/L (12-78) Alkaline Phosphatase 166 U/L (46-116) H Total Protein 7.1 G/DL (6.4-8.2) Albumin 3.0 G/DL (3.4-5.0) L Current Medications Medications (Trade) Dose Ordered Sig/Luis Route PRN Reason Start Time Stop Time Status Last Admin Dose Admin Acetaminophen (Tylenol) 650 mg Q4H PRN ORAL fever 12/15/18 14:54 01/14/19 14:53 Amlodipine Besylate (Norvasc) 2.5 mg DAILY ORAL 12/27/18 09:00 01/26/19 08:59 12/28/18 08:32 Atorvastatin Calcium (Lipitor) 80 mg BEDTIME ORAL 12/15/18 21:00 01/14/19 20:59 12/27/18 20:15 Chlorhexidine Gluconate (Ruby-Hex 2%) 1 applic DAILY@2000 TOPIC 12/22/18 20:00 01/21/19 19:59 12/27/18 20:14 Clonidine HCl (Catapres Tab) 0.1 mg Q4H PRN ORAL For High Blood Pressure 12/15/18 14:56 01/14/19 14:55 Clopidogrel Bisulfate (Plavix) 75 mg DAILY ORAL 12/16/18 09:00 01/14/19 08:59 12/28/18 08:32 Daptomycin 900 mg/ Sodium Chloride 55 ml @ 110 mls/hr Q24H IV 12/25/18 14:00 01/01/19 13:59 12/28/18 14:57 Dextrose (Dextrose 50%) 25 ml Q30M PRN IV Hypoglycemia 12/15/18 15:15 01/13/19 23:44 Dextrose (Dextrose 50%) 50 ml Q30M PRN IV Hypoglycemia 12/15/18 15:15 01/13/19 23:44 Duloxetine HCl (Cymbalta) 30 mg DAILY ORAL 12/16/18 09:00 01/14/19 08:59 12/28/18 08:30 Furosemide (Lasix) 20 mg ONCE IV 12/21/18 17:00 01/20/19 16:59 12/27/18 16:14 Furosemide (Lasix) 20 mg Q6HR IV 12/22/18 00:00 01/21/19 00:00 12/28/18 12:02 Gabapentin (Neurontin) 600 mg THREE TIMES A DAY ORAL 12/15/18 18:00 01/14/19 08:59 12/28/18 12:01 Heparin Sodium (Porcine) (Heparin 5000 units/ml) 5,000 units EVERY 12 HOURS SUBQ 12/15/18 21:00 01/14/19 08:59 12/28/18 08:34 Hydromorphone HCl (Dilaudid) 3 mg Q4H PRN IVP Severe Pain (Pain Scale 7-10) 12/25/18 10:00 01/01/19 09:59 12/28/18 16:51 Levetiracetam (Keppra) 1,000 mg Q12HR ORAL 12/19/18 09:00 01/18/19 08:59 12/28/18 08:32 Nitroglycerin (Ntg) 0.4 mg Q5M X 3 DOSES PRN SL Prn Chest Pain 12/15/18 14:45 01/13/19 23:44 Ondansetron HCl (Zofran) 4 mg Q6H PRN IVP Nausea & Vomiting 12/15/18 14:55 01/14/19 14:54 12/17/18 10:19 Polyethylene Glycol (Miralax) 17 gm HSPRN PRN ORAL Constipation 12/15/18 14:55 01/14/19 14:54 Pregabalin (Lyrica) 100 mg THREE TIMES A DAY ORAL 12/26/18 09:00 01/19/19 22:59 12/28/18 12:02 Promethazine HCl/ Codeine (Phenergan with Codeine) 5 ml Q4H PRN ORAL For Cough 12/28/18 12:00 01/27/19 11:59 Trazodone HCl (Desyrel) 100 mg BEDTIME ORAL 12/15/18 21:00 01/14/19 20:59 12/27/18 20:14 Harry Frank MD Dec 28, 2018 17:49
--- NOTE | 2018-12-28 19:28 | NUR ---
HAND-OFF: Report given to MICAELA Stein.
[2018-12-28 20:00] VITALS: BP 134/71
--- NOTE | 2018-12-28 20:00 | NUR ---
NURSE NOTES: PT SITTING ON BED. ON RA, NO SOB, NO ACUTE DISTRESS. R UPPER ARM PICC LINE INTACT WITH DRY DRESSING. WOUND DRESSINGS ON BLE INTACT AND DRY. BED IN LOWEST POSITION, LOCKED, ALARMS ON. CALL LIGHT IN REACH.
[2018-12-28] MEDS: TraZODone 100mg tab ORAL SCH (21:05)
[2018-12-28] MEDS: Dyna-Hex 2% Top Sol 2oz TOPIC SCH (21:05)
[2018-12-28] MEDS: Atorvastatin 80mg tab ORAL SCH (21:05)
--- NOTE | 2018-12-28 21:17 | General Progress Note ---
Assessment/Plan Status: stable, progressing Assessment/Plan: (1) Lumbar DDD (2) Lumbar Spondylosis (3) Lumbar Radiculopathy (4) Morbid Obesity (5) Right knee pain (6) Right knee OA h/o ORIF We will continue patient on Dilaudid as needed. D/w Dr. Magaña and he concurred. Subjective Date patient seen: Dec 28, 2018 Time patient seen: 07:00 - am Allergies: Coded Allergies: ASPIRIN (Verified Allergy, Unknown, 07/14/18) KETOROLAC (Verified Allergy, Unknown, 07/14/18) PENICILLINS (Verified Allergy, Unknown, 12/23/18) tolerated Ancef on 08/2018 Subjective REVIEW OF SYSTEMS: Denies rash, fever, chills, sweating, dizziness, drowsiness, blurred vision, sore throat, change in weight. No nausea, vomiting, diarrhea, or blood in the stool or urine. No bowel or bladder incontinence. No dysuria. He is complaining of low back pain SUBJECTIVE: Patient sitting up in bed and continues to tolerate the pain on the Dilaudid. No new complaints at this time. Objective Last 24 Hour Vital Signs Date Time Temp Pulse Resp B/P (MAP) Pulse Ox O2 Delivery O2 Flow Rate FiO2 12/28/18 17:21 98.3 12/28/18 16:00 98.3 81 19 122/75 (91) 97 12/28/18 12:00 98.3 79 19 119/70 (86) 98 12/28/18 09:00 Room Air 12/28/18 08:32 97 140/86 12/28/18 08:00 98.8 89 19 131/82 (98) 96 12/28/18 04:00 99.4 84 19 125/81 (96) 94 12/28/18 00:00 98.5 83 19 140/69 (92) 98 Intake and Output 12/27/18 12/28/18 19:00 07:00 Intake Total 1055 ml Balance 1055 ml Intake Oral 1000 ml IV Total 55 ml # Voids 3 Laboratory Tests 12/28/18 09:00: White Blood Count 5.1, Red Blood Count 4.43L, Hemoglobin 13.5L, Hematocrit 40.2L , Mean Corpuscular Volume 91, Mean Corpuscular Hemoglobin 30.5, Mean Corpuscular Hemoglobin Concent 33.6, Red Cell Distribution Width 12.9, Platelet Count 215, Mean Platelet Volume 5.4L, Neutrophils (%) (Auto) 61.8, Lymphocytes ( %) (Auto) 25.5, Monocytes (%) (Auto) 8.2, Eosinophils (%) (Auto) 3.8H, Basophils (%) (Auto) 0.8, Sodium Level 138, Potassium Level 3.5, Chloride Level 98, Carbon Dioxide Level 37H, Anion Gap 3L, Blood Urea Nitrogen 17, Creatinine 1.0, Estimat Glomerular Filtration Rate > 60, Glucose Level 122H, Calcium Level 8.8, Phosphorus Level 3.3, Magnesium Level 1.8, Total Bilirubin 0.4, Direct Bilirubin < 0.1, Aspartate Amino Transf (AST/SGOT) 47H, Alanine Aminotransferase (ALT/SGPT) 35, Alkaline Phosphatase 166H, Total Protein 7.1, Albumin 3.0L Height (Feet): 5 Height (Inches): 10.00 Weight (Pounds): 489 Objective GENERAL: Alert, awake, and oriented x3. LUNGS: Decreased breath sounds bilaterally. HEART: S1 and S2, regular. ABDOMEN: Obese. EXTREMITIES: No cyanosis. No clubbing. No edema. NEURO: No changes. Eliezer Nicole Dec 28, 2018 21:17
--- NOTE | 2018-12-28 22:30 | Progress Note ---
DATE: 12/28/2018 SUBJECTIVE: This is a 53-year-old patient status post cerebrovascular accident. The patient continued to have some confusion, disorganized thought process, and decline in cognition. He has high levels of anxiety and depression, worsened by stress of his medical illness, that is why the attending has requested daily consultation. He has problems of hopelessness, helplessness, low energy, poor appetite, and loss of interest in activity. MENTAL STATUS EXAMINATION: This is a 53-year-old male. Appearance is disheveled. Attitude, irritable and agitated. Affect, restricted. Intellect poor. Mood, depressed and anxious. Motor activity, psychomotor agitation. Attention span is poor. Orientation x2. Speech is normal volume. Thought process, disorganized and illogical. He has paranoia. Insight and judgment is poor. DIAGNOSIS: Major depressive disorder, mild, recurrent without psychotic features. PLAN: Treat him with Cymbalta 30 mg daily, Neurontin 600 mg three times a day, and trazodone 100 mg at bedtime. Provide him with 20 minutes of cognitive behavioral therapy to help him identify his automatic negative thoughts, help convert his negative thoughts to more positive thoughts to reduce depression, anxiety, and suicidality and help him to have more adaptive behavioral pattern. Chart reviewed. Discussed staff. Seen and assessed at bedside. Laney Mcghee M.D. DR: JONATHAN JOB#: [id number] CC:
[2018-12-28] MEDS: Promethazine/Codeine 5ml UD ORAL PRN (23:05)
--- NOTE | 2018-12-28 23:23 | Cardiology Progress Note ---
Assessment/Plan Assessment/Plan 1. Morbid obesity with panniculitis, normal LV systolic and diastolic function per recent echo, clear for "removal of pannus". 2. Chronic venous insufficiency, may have to replace amlodipine with ARBs in the view of leg edema. 3. HTN, well controlled, discontinue amlodipine. Start losartan 50mg po qd 4. COPD 5. Seizure D/O Subjective Subjective No cardiac events is reported. Objective Last 24 Hour Vital Signs Date Time Temp Pulse Resp B/P (MAP) Pulse Ox O2 Delivery O2 Flow Rate FiO2 12/28/18 17:21 98.3 12/28/18 16:00 98.3 81 19 122/75 (91) 97 12/28/18 12:00 98.3 79 19 119/70 (86) 98 12/28/18 09:00 Room Air 12/28/18 08:32 97 140/86 12/28/18 08:00 98.8 89 19 131/82 (98) 96 12/28/18 04:00 99.4 84 19 125/81 (96) 94 12/28/18 00:00 98.5 83 19 140/69 (92) 98 Intake and Output 12/27/18 12/28/18 19:00 07:00 Intake Total 1055 ml Balance 1055 ml Intake Oral 1000 ml IV Total 55 ml # Voids 3 2D Echo: Normal LV systolic function, RVSP 34 mmHg, RAP elevated at 15 mmHg Laboratory Tests Test 12/28/18 09:00 White Blood Count 5.1 K/UL (4.8-10.8) Red Blood Count 4.43 M/UL (4.70-6.10) L Hemoglobin 13.5 G/DL (14.2-18.0) L Hematocrit 40.2 % (42.0-52.0) L Mean Corpuscular Volume 91 FL (80-99) Mean Corpuscular Hemoglobin 30.5 PG (27.0-31.0) Mean Corpuscular Hemoglobin Concent 33.6 G/DL (32.0-36.0) Red Cell Distribution Width 12.9 % (11.6-14.8) Platelet Count 215 K/UL (150-450) Mean Platelet Volume 5.4 FL (6.5-10.1) L Neutrophils (%) (Auto) 61.8 % (45.0-75.0) Lymphocytes (%) (Auto) 25.5 % (20.0-45.0) Monocytes (%) (Auto) 8.2 % (1.0-10.0) Eosinophils (%) (Auto) 3.8 % (0.0-3.0) H Basophils (%) (Auto) 0.8 % (0.0-2.0) Sodium Level 138 MMOL/L (136-145) Potassium Level 3.5 MMOL/L (3.5-5.1) Chloride Level 98 MMOL/L (98-107) Carbon Dioxide Level 37 MMOL/L (21-32) H Anion Gap 3 mmol/L (5-15) L Blood Urea Nitrogen 17 mg/dL (7-18) Creatinine 1.0 MG/DL (0.55-1.30) Estimat Glomerular Filtration Rate > 60 mL/min (>60) Glucose Level 122 MG/DL (74-106) H Calcium Level 8.8 MG/DL (8.5-10.1) Phosphorus Level 3.3 MG/DL (2.5-4.9) Magnesium Level 1.8 MG/DL (1.8-2.4) Total Bilirubin 0.4 MG/DL (0.2-1.0) Direct Bilirubin < 0.1 MG/DL (0.0-0.3) Aspartate Amino Transf (AST/SGOT) 47 U/L (15-37) H Alanine Aminotransferase (ALT/SGPT) 35 U/L (12-78) Alkaline Phosphatase 166 U/L (46-116) H Total Protein 7.1 G/DL (6.4-8.2) Albumin 3.0 G/DL (3.4-5.0) L Objective HEENT: Atraumatic and normocephalic. Anicteric. Pupils are equal, round, and reactive to light and accommodation. NECK: JVP cannot be assessed due to obesity. No carotid bruit. CARDIOVASCULAR: Normal S1, S2. Regular rate and rhythm. No murmurs, gallops, or rubs. PMI is at fourth intercostal space at the midclavicular line. LUNGS: Clear to auscultation bilaterally. ABDOMEN: Distended due to pannus formation, cannot palpate hepatosplenomegaly. Positive bowel sounds. EXTREMITIES: No lower extremity edema, clubbing or cyanosis. Carlos Martins MD Dec 28, 2018 23:23
--- NOTE | 2018-12-28 23:53 | Neurology Progress Note ---
Interim History Interim History ROS Limited/Unobtainable: No Complaints: Left sided weakness/ spasticity Events: EEG for 12/23 report abnormal without epileptiform charges Interim History This visit was performed on December 26, [address] Amador Brewster. Review of Systems Neuro Review of Systems Reporting feeling malaise, headache, lethargy today. Objective Physical Exam Last Vital Signs Date Time Temp Pulse Resp B/P (MAP) Pulse Ox O2 Delivery O2 Flow Rate FiO2 12/28/18 20:00 98.1 87 16 134/71 (92) 94 12/28/18 09:00 Room Air 12/20/18 20:42 21 Laboratory Tests Test 12/28/18 09:00 White Blood Count 5.1 K/UL (4.8-10.8) Red Blood Count 4.43 M/UL (4.70-6.10) L Hemoglobin 13.5 G/DL (14.2-18.0) L Hematocrit 40.2 % (42.0-52.0) L Mean Corpuscular Volume 91 FL (80-99) Mean Corpuscular Hemoglobin 30.5 PG (27.0-31.0) Mean Corpuscular Hemoglobin Concent 33.6 G/DL (32.0-36.0) Red Cell Distribution Width 12.9 % (11.6-14.8) Platelet Count 215 K/UL (150-450) Mean Platelet Volume 5.4 FL (6.5-10.1) L Neutrophils (%) (Auto) 61.8 % (45.0-75.0) Lymphocytes (%) (Auto) 25.5 % (20.0-45.0) Monocytes (%) (Auto) 8.2 % (1.0-10.0) Eosinophils (%) (Auto) 3.8 % (0.0-3.0) H Basophils (%) (Auto) 0.8 % (0.0-2.0) Sodium Level 138 MMOL/L (136-145) Potassium Level 3.5 MMOL/L (3.5-5.1) Chloride Level 98 MMOL/L (98-107) Carbon Dioxide Level 37 MMOL/L (21-32) H Anion Gap 3 mmol/L (5-15) L Blood Urea Nitrogen 17 mg/dL (7-18) Creatinine 1.0 MG/DL (0.55-1.30) Estimat Glomerular Filtration Rate > 60 mL/min (>60) Glucose Level 122 MG/DL (74-106) H Calcium Level 8.8 MG/DL (8.5-10.1) Phosphorus Level 3.3 MG/DL (2.5-4.9) Magnesium Level 1.8 MG/DL (1.8-2.4) Total Bilirubin 0.4 MG/DL (0.2-1.0) Direct Bilirubin < 0.1 MG/DL (0.0-0.3) Aspartate Amino Transf (AST/SGOT) 47 U/L (15-37) H Alanine Aminotransferase (ALT/SGPT) 35 U/L (12-78) Alkaline Phosphatase 166 U/L (46-116) H Total Protein 7.1 G/DL (6.4-8.2) Albumin 3.0 G/DL (3.4-5.0) L General: well developed, well nourished, other - Morbidly obese Head: normocophalic Neck: no rigidity EENT: benign Neurologic Exam Mental Status: awake, alert, oriented x4, normal cognition, good mathematical skills, normal recent memory, normal remote memory, preserved visuospatial function Speech: normal speech, no dysarthia Language: normal language, no aphasia Cranial Nerve II: fundus normal, visual bonilla, no papilledema Cranial Nerves III, IV, : PERRLA, EOMI, pupils Cranial Nerve V: normal facial sensations, temporales function normal, masseters function normal, pterygoids function normal Cranial Nerve VII: normal facial expressions, other Cranial Nerve VIII: normal hearing, no nystagmus Cranial Nerve IX: normal palate elevation, gag response Cranial Nerve X: no voice hoarseness Cranial Nerve XI: SCM symmetric, trapezii function normal Cranial Nerve XII: tongue midline, no tongue atrophy/fasciculations Motor System: normal muscle tone, no involuntary movement, no muscle wasting Sensory: normal pinprick, normal light touch, normal position sense, normal graphesthesia Coordination: negative Romberg test Deep Tendon Reflexes: 1+ bicep (L), 1+ bicep (R), 1+ tricep (L), 1+ tricep (R) , 1+ brachioradialis (L), 1+ brachioradialis (R), 1+ knee (L), 1+ knee (R), 1+ ankle (L), 1+ ankle (R) Reflexes: flexor plantar (L), flexor plantar (R); extensor plantar (L), extensor plantar (R) Stance: other - Broad based Objective Left arm, predominantly hand weakness at this time. Alert and oriented,mood stable, still feeling unwell Ambulatory with cellulitis persisting on BLE He does not have proximal left arm weakness at this time or facial weakness, tongue deviated on exam but stably improved . Imaging DATE OF PROCEDURE: 12/23/2018 REQUESTING PHYSICIAN: Amador Brewster M.D. READING PHYSICIAN: Kar Soriano M.D. PROCEDURE PERFORMED: Electroencephalogram. HISTORY: This EEG was performed on a 53-year-old gentleman with a history of morbid obesity and an altered mental state. The purpose of this EEG was to evaluate the patient for ongoing ictal or interictal phenomena. TECHNICAL NOTE: This EEG was performed on a [employer] with electrodes placed on the scalp according to the International 10-20 system. Wklnp-xe-ebpio and fmmng-ra-pjy montages were used. The EEG was technically satisfactory and was performed in the awake, drowsy, and sleep states. OBSERVATIONS: In the best awake state, the background activity consisted of 8-9 Hz alpha activity with some intermixed theta frequencies. Drowsiness was characterized by dissolution of the alpha rhythm and the appearance of slower frequencies in the 5-6 Hz theta range. During drowsiness, bilateral frontotemporal polymorphic delta activity was seen sometimes occurring in brief runs. Stage II sleep was characterized by further slowing of the background in the delta and theta range, the presence of vertex waves, and 12 Hz sleep spindles. No focal abnormalities or epileptiform discharges were seen. IMPRESSION: This is an abnormal EEG characterized by: 1. An unusually large amount of theta activity seen during the reportedly awake state. 2. The presence of bilateral frontotemporal polymorphic delta activity, sometimes occurring in runs, seen during drowsiness. COMMENT: This study is consistent with an encephalopathy of a mild degree. Clinical correlation is recommended. Kar Soriano M.D., M.S.P.H. DR: CYNTHIA JOB#: [id number] <Electronically signed by Kar Soriano MD> 12/25/18 1618 [facility] [id number] [place], [place] [address] ELECTROENCEPHALOGRAM Patient: TRA LUND [facility] Rec #: [id number] Patient No.: [id number] Date of Service: 12/14/18 MTF0 30 Page of Impression/Recommendations Problems: (1) Seizures Assessment & Plan: Keppra 1000mg BID PO Maintain SBP<140 Q4 Hour Neuro Checks Ativan 2mg PRN for seizure activity CT Head w/o contrast when able to rule out CVA - also for consideration of MRI if CT negative. - low suspicion of CVA due to normotensive status without risk factors of elevated BP/ HgBA1c or thyroid dysfunction. Na 135-145 Continue pain management - Lyrica 50mg TID - May increase to 75mg TID as needed Continue Gabapentin 600mg TID (2) Morbid obesity (3) COPD (chronic obstructive pulmonary disease) (4) Uncontrolled seizures (5) Left-sided weakness (6) Knee osteomyelits, right Status: stable, progressing, tolerating diet Recommendations Continue neuroleptic meds as per psychiatry Some increased agitation - consider additiona 25mg Seroquel PRN for agitation Maintain SBP<140 - recently hypertensive PT/OT evals CT/ MRI follow up to rule out stroke - wait list for transfer and open MRI scanner Continue Lyrica 75mg TID---will increase as needed Q4 hour Neuro Obs - NO NIGHTTIME OBS if stable Prevent delirium Maintain regular sleep schedule and reduce nighttime activities such as observations (if unnecessary) Check LFTS prior to D/C and encourage follow up if they remain elevated .May need to revise Vicky Fonseca N.P. Dec 28, 2018 23:53
--- NOTE | 2018-12-28 23:53 | Neurology Progress Note ---
Interim History Interim History ROS Limited/Unobtainable: No Complaints: Seizures/ Weakness Events: Seizures reported by patient - Interim History This visit was performed on December 27, [address] Amador Brewster. Review of Systems Neuro Review of Systems Reports seizures , non consciousness impairing and unwitnessed as per patient report. All Systems: reviewed and negative except above Objective Physical Exam Last Vital Signs Date Time Temp Pulse Resp B/P (MAP) Pulse Ox O2 Delivery O2 Flow Rate FiO2 12/28/18 20:00 98.1 87 16 134/71 (92) 94 12/28/18 09:00 Room Air 12/20/18 20:42 21 Laboratory Tests Test 12/28/18 09:00 White Blood Count 5.1 K/UL (4.8-10.8) Red Blood Count 4.43 M/UL (4.70-6.10) L Hemoglobin 13.5 G/DL (14.2-18.0) L Hematocrit 40.2 % (42.0-52.0) L Mean Corpuscular Volume 91 FL (80-99) Mean Corpuscular Hemoglobin 30.5 PG (27.0-31.0) Mean Corpuscular Hemoglobin Concent 33.6 G/DL (32.0-36.0) Red Cell Distribution Width 12.9 % (11.6-14.8) Platelet Count 215 K/UL (150-450) Mean Platelet Volume 5.4 FL (6.5-10.1) L Neutrophils (%) (Auto) 61.8 % (45.0-75.0) Lymphocytes (%) (Auto) 25.5 % (20.0-45.0) Monocytes (%) (Auto) 8.2 % (1.0-10.0) Eosinophils (%) (Auto) 3.8 % (0.0-3.0) H Basophils (%) (Auto) 0.8 % (0.0-2.0) Sodium Level 138 MMOL/L (136-145) Potassium Level 3.5 MMOL/L (3.5-5.1) Chloride Level 98 MMOL/L (98-107) Carbon Dioxide Level 37 MMOL/L (21-32) H Anion Gap 3 mmol/L (5-15) L Blood Urea Nitrogen 17 mg/dL (7-18) Creatinine 1.0 MG/DL (0.55-1.30) Estimat Glomerular Filtration Rate > 60 mL/min (>60) Glucose Level 122 MG/DL (74-106) H Calcium Level 8.8 MG/DL (8.5-10.1) Phosphorus Level 3.3 MG/DL (2.5-4.9) Magnesium Level 1.8 MG/DL (1.8-2.4) Total Bilirubin 0.4 MG/DL (0.2-1.0) Direct Bilirubin < 0.1 MG/DL (0.0-0.3) Aspartate Amino Transf (AST/SGOT) 47 U/L (15-37) H Alanine Aminotransferase (ALT/SGPT) 35 U/L (12-78) Alkaline Phosphatase 166 U/L (46-116) H Total Protein 7.1 G/DL (6.4-8.2) Albumin 3.0 G/DL (3.4-5.0) L General: well developed, other - Morbidly obese Head: normocophalic Neck: no rigidity EENT: benign Neurologic Exam Mental Status: awake, alert, oriented x4, normal cognition, good mathematical skills, normal recent memory, normal remote memory, preserved visuospatial function Speech: normal speech, no dysarthia Language: normal language, no aphasia Cranial Nerve II: fundus normal, visual bonilla, no papilledema Cranial Nerves III, IV, : PERRLA, EOMI, pupils Cranial Nerve V: normal facial sensations, temporales function normal, masseters function normal, pterygoids function normal Cranial Nerve VII: normal facial expressions, other Cranial Nerve VIII: normal hearing, no nystagmus Cranial Nerve IX: normal palate elevation, gag response Cranial Nerve X: no voice hoarseness Cranial Nerve XI: SCM symmetric, trapezii function normal Cranial Nerve XII: tongue midline, no tongue atrophy/fasciculations Motor System: normal muscle tone, no involuntary movement, no muscle wasting Sensory: normal pinprick, normal light touch, normal position sense, normal graphesthesia Coordination: negative Romberg test Deep Tendon Reflexes: 1+ bicep (L), 1+ bicep (R), 1+ tricep (L), 1+ tricep (R) , 1+ brachioradialis (L), 1+ brachioradialis (R), 1+ knee (L), 1+ knee (R), 1+ ankle (L), 1+ ankle (R) Reflexes: flexor plantar (L), flexor plantar (R); extensor plantar (L), extensor plantar (R) Stance: other - Broad based Objective Left arm, predominantly hand weakness at this time. Alert and oriented,mood stable, morbidly obese Ambulatory with cellulitis persisting on BLE He does not have proximal left arm weakness at this time or facial weakness, tongue deviated on exam but no issues with patient swallow. Somewhat more lethargic on exam today. Impression/Recommendations Problems: (1) Seizures Assessment & Plan: Keppra 1500mg BID PO - dose raised today Maintain SBP<140 Q4 Hour Neuro Checks Ativan 2mg PRN for seizure activity CT Head w/o contrast when able to rule out CVA - also for consideration of MRI if CT negative. - low suspicion of CVA due to normotensive status without risk factors of elevated BP/ HgBA1c or thyroid dysfunction. Na 135-145 Continue pain management - Lyrica 75mg TID Continue Gabapentin 600mg TID (2) Morbid obesity (3) COPD (chronic obstructive pulmonary disease) (4) Uncontrolled seizures (5) Left-sided weakness (6) Knee osteomyelits, right (7) Muscle spasticity Assessment & Plan: Likely secondary to nerve irritability - Causing increased pain Increase Lyrica to 100mg TID Status: stable, progressing Recommendations Continue neuroleptic meds as per psychiatry Some increased agitation - consider additiona 25mg Seroquel PRN for agitation Maintain SBP<140 PT/OT evals CT/ MRI follow up to rule out stroke - wait list for transfer and open MRI scanner EEG as outpatient Increase Lyrica to 100mg TID Q4 hour Neuro Obs - NO NIGHTTIME OBS if stable Prevent delirium Maintain regular sleep schedule and reduce nighttime activities such as observations (if unnecessary) Check LFTS prior to D/C and encourage follow up if they remain elevated .May need to revise Vicky Fonseca N.P. Dec 28, 2018 23:53
--- NOTE | 2018-12-28 23:54 | Neurology Progress Note ---
Interim History Interim History ROS Limited/Unobtainable: No Complaints: Left sided weakness/ spasticity Events: ARM WEAKNESS RESOLVED, HAND Weakness slowly improving Interim History Visit on December 28, 2018 Objective Physical Exam Last Vital Signs Date Time Temp Pulse Resp B/P (MAP) Pulse Ox O2 Delivery O2 Flow Rate FiO2 12/28/18 20:00 98.1 87 16 134/71 (92) 94 12/28/18 09:00 Room Air 12/20/18 20:42 21 Laboratory Tests Test 12/28/18 09:00 White Blood Count 5.1 K/UL (4.8-10.8) Red Blood Count 4.43 M/UL (4.70-6.10) L Hemoglobin 13.5 G/DL (14.2-18.0) L Hematocrit 40.2 % (42.0-52.0) L Mean Corpuscular Volume 91 FL (80-99) Mean Corpuscular Hemoglobin 30.5 PG (27.0-31.0) Mean Corpuscular Hemoglobin Concent 33.6 G/DL (32.0-36.0) Red Cell Distribution Width 12.9 % (11.6-14.8) Platelet Count 215 K/UL (150-450) Mean Platelet Volume 5.4 FL (6.5-10.1) L Neutrophils (%) (Auto) 61.8 % (45.0-75.0) Lymphocytes (%) (Auto) 25.5 % (20.0-45.0) Monocytes (%) (Auto) 8.2 % (1.0-10.0) Eosinophils (%) (Auto) 3.8 % (0.0-3.0) H Basophils (%) (Auto) 0.8 % (0.0-2.0) Sodium Level 138 MMOL/L (136-145) Potassium Level 3.5 MMOL/L (3.5-5.1) Chloride Level 98 MMOL/L (98-107) Carbon Dioxide Level 37 MMOL/L (21-32) H Anion Gap 3 mmol/L (5-15) L Blood Urea Nitrogen 17 mg/dL (7-18) Creatinine 1.0 MG/DL (0.55-1.30) Estimat Glomerular Filtration Rate > 60 mL/min (>60) Glucose Level 122 MG/DL (74-106) H Calcium Level 8.8 MG/DL (8.5-10.1) Phosphorus Level 3.3 MG/DL (2.5-4.9) Magnesium Level 1.8 MG/DL (1.8-2.4) Total Bilirubin 0.4 MG/DL (0.2-1.0) Direct Bilirubin < 0.1 MG/DL (0.0-0.3) Aspartate Amino Transf (AST/SGOT) 47 U/L (15-37) H Alanine Aminotransferase (ALT/SGPT) 35 U/L (12-78) Alkaline Phosphatase 166 U/L (46-116) H Total Protein 7.1 G/DL (6.4-8.2) Albumin 3.0 G/DL (3.4-5.0) L General: well developed, well nourished, other - Morbidly obese Head: normocophalic Neck: no rigidity EENT: benign Neurologic Exam Mental Status: awake, alert, oriented x4, normal cognition, good mathematical skills, normal recent memory, normal remote memory, preserved visuospatial function Speech: normal speech, no dysarthia Language: normal language, no aphasia Cranial Nerve II: fundus normal, visual bonilla, no papilledema Cranial Nerves III, IV, : PERRLA, EOMI, pupils Cranial Nerve V: normal facial sensations, temporales function normal, masseters function normal, pterygoids function normal Cranial Nerve VII: normal facial expressions, other Cranial Nerve VIII: normal hearing, no nystagmus Cranial Nerve IX: normal palate elevation, gag response Cranial Nerve X: no voice hoarseness Cranial Nerve XI: SCM symmetric, trapezii function normal Cranial Nerve XII: tongue midline, no tongue atrophy/fasciculations Motor System: normal muscle tone, no involuntary movement, no muscle wasting Sensory: normal pinprick, normal light touch, normal position sense, normal graphesthesia Coordination: negative Romberg test Deep Tendon Reflexes: 1+ bicep (L), 1+ bicep (R), 1+ tricep (L), 1+ tricep (R) , 1+ brachioradialis (L), 1+ brachioradialis (R), 1+ knee (L), 1+ knee (R), 1+ ankle (L), 1+ ankle (R) Reflexes: flexor plantar (L), flexor plantar (R); extensor plantar (L), extensor plantar (R) Stance: other - Broad based Objective Left arm, predominantly hand weakness at this time. Alert and oriented, intermittently agitated / irritable Ambulatory with cellulitis persisting on RLE He does not have proximal left arm weakness at this time or facial weakness, tongue deviated on exam . Impression/Recommendations Problems: (1) Seizures Assessment & Plan: Keppra 1000mg BID PO Maintain SBP<140 Q4 Hour Neuro Checks Ativan 2mg PRN for seizure activity CT Head w/o contrast when able to rule out CVA - also for consideration of MRI if CT negative. - low suspicion of CVA due to normotensive status without risk factors of elevated BP/ HgBA1c or thyroid dysfunction. Na 135-145 Continue pain management - Lyrica 50mg TID - May increase to 75mg TID as needed Continue Gabapentin 600mg TID (2) Morbid obesity (3) COPD (chronic obstructive pulmonary disease) (4) Uncontrolled seizures (5) Left-sided weakness (6) Knee osteomyelits, right Status: stable, progressing Recommendations Continue neuroleptic meds as per psychiatry Some increased agitation - consider additiona 25mg Seroquel PRN for agitation Maintain SBP<140 PT/OT evals CT/ MRI follow up to rule out stroke - wait list for transfer and open MRI scanner EEG as outpatient Continue Lyrica 75mg TID---will increase as needed Q4 hour Neuro Obs - NO NIGHTTIME OBS if stable Prevent delirium Maintain regular sleep schedule and reduce nighttime activities such as observations (if unnecessary) Check LFTS prior to D/C and encourage follow up if they remain elevated .May need to revise Vicky Fonseca N.P. Dec 28, 2018 23:54
--- NOTE | 2018-12-28 23:54 | Neurology Progress Note ---
Interim History Interim History ROS Limited/Unobtainable: No Complaints: Left sided weakness/ spasticity Events: ARM WEAKNESS RESOLVED, HAND Weakness slowly improving Interim History This visit was performed on December 28, [address] Amador Brewster . Review of Systems Neuro Review of Systems No new seizures or new focal motor symptoms All Systems: reviewed and negative except above Objective Physical Exam Last Vital Signs Date Time Temp Pulse Resp B/P (MAP) Pulse Ox O2 Delivery O2 Flow Rate FiO2 12/28/18 20:00 98.1 87 16 134/71 (92) 94 12/28/18 09:00 Room Air 12/20/18 20:42 21 Laboratory Tests Test 12/28/18 09:00 White Blood Count 5.1 K/UL (4.8-10.8) Red Blood Count 4.43 M/UL (4.70-6.10) L Hemoglobin 13.5 G/DL (14.2-18.0) L Hematocrit 40.2 % (42.0-52.0) L Mean Corpuscular Volume 91 FL (80-99) Mean Corpuscular Hemoglobin 30.5 PG (27.0-31.0) Mean Corpuscular Hemoglobin Concent 33.6 G/DL (32.0-36.0) Red Cell Distribution Width 12.9 % (11.6-14.8) Platelet Count 215 K/UL (150-450) Mean Platelet Volume 5.4 FL (6.5-10.1) L Neutrophils (%) (Auto) 61.8 % (45.0-75.0) Lymphocytes (%) (Auto) 25.5 % (20.0-45.0) Monocytes (%) (Auto) 8.2 % (1.0-10.0) Eosinophils (%) (Auto) 3.8 % (0.0-3.0) H Basophils (%) (Auto) 0.8 % (0.0-2.0) Sodium Level 138 MMOL/L (136-145) Potassium Level 3.5 MMOL/L (3.5-5.1) Chloride Level 98 MMOL/L (98-107) Carbon Dioxide Level 37 MMOL/L (21-32) H Anion Gap 3 mmol/L (5-15) L Blood Urea Nitrogen 17 mg/dL (7-18) Creatinine 1.0 MG/DL (0.55-1.30) Estimat Glomerular Filtration Rate > 60 mL/min (>60) Glucose Level 122 MG/DL (74-106) H Calcium Level 8.8 MG/DL (8.5-10.1) Phosphorus Level 3.3 MG/DL (2.5-4.9) Magnesium Level 1.8 MG/DL (1.8-2.4) Total Bilirubin 0.4 MG/DL (0.2-1.0) Direct Bilirubin < 0.1 MG/DL (0.0-0.3) Aspartate Amino Transf (AST/SGOT) 47 U/L (15-37) H Alanine Aminotransferase (ALT/SGPT) 35 U/L (12-78) Alkaline Phosphatase 166 U/L (46-116) H Total Protein 7.1 G/DL (6.4-8.2) Albumin 3.0 G/DL (3.4-5.0) L General: well developed, well nourished, other - Morbidly obese Head: normocophalic Neck: no rigidity EENT: benign Neurologic Exam Mental Status: awake, alert, oriented x4, normal cognition, good mathematical skills, normal recent memory, normal remote memory, preserved visuospatial function Speech: normal speech, no dysarthia Language: normal language, no aphasia Cranial Nerve II: fundus normal, visual bonilla, no papilledema Cranial Nerves III, IV, : PERRLA, EOMI, pupils Cranial Nerve V: normal facial sensations, temporales function normal, masseters function normal, pterygoids function normal Cranial Nerve VII: normal facial expressions, other Cranial Nerve VIII: normal hearing, no nystagmus Cranial Nerve IX: normal palate elevation, gag response Cranial Nerve X: no voice hoarseness Cranial Nerve XI: SCM symmetric, trapezii function normal Cranial Nerve XII: tongue midline, no tongue atrophy/fasciculations Motor System: normal muscle tone, no involuntary movement, no muscle wasting Sensory: normal pinprick, normal light touch, normal position sense, normal graphesthesia Coordination: negative Romberg test Deep Tendon Reflexes: 1+ bicep (L), 1+ bicep (R), 1+ tricep (L), 1+ tricep (R) , 1+ brachioradialis (L), 1+ brachioradialis (R), 1+ knee (L), 1+ knee (R), 1+ ankle (L), 1+ ankle (R) Reflexes: flexor plantar (L), flexor plantar (R); extensor plantar (L), extensor plantar (R) Stance: other - Broad based Objective Left arm, predominantly hand weakness at this time. Alert and oriented Mood stable, some mild aphasia today Ambulatory with cellulitis persisting on BLE He does not have proximal left arm weakness at this time or facial weakness, tongue deviated on exam -all stably improved but no changes in several days to motor exam overall . Imaging DATE OF TRACIN12/25/2018 REQUESTING PHYSICIAN: Amador Brewster M.D. READING PHYSICIAN: Kar Soriano M.D. PROCEDURE PERFORMED: Electroencephalogram. HISTORY: This EEG was performed on a 53-year-old gentleman with history of an altered mental state and a seizure disorder. The purpose of this EEG was to evaluate the patient for the degree and type of cerebral dysfunction and to exclude ongoing ictal or interictal phenomena. TECHNICAL NOTE: This EEG was performed on a [employer] with electrodes placed on the scalp according to the International 10-20 system. Rlnkm-yy-oysaf and ekbqq-mt-yzi montages were used. The EEG was technically satisfactory and was performed in the awake, drowsy, and sleep states. OBSERVATIONS: In the best awake state, the background activity consisted of 6.5-7 Hz theta activity with some intermixed alpha frequencies. Drowsiness was characterized by slowing of the background in the 4-5 Hz theta range with intermixed delta frequencies and in addition bilateral frontotemporal polymorphic delta activity. Stage II sleep was characterized by further slowing of the background in the delta and theta range, the presence of vertex waves, and 12 Hz sleep spindles. No definite focal abnormalities or epileptiform discharges were seen. IMPRESSION: This is an abnormal EEG characterized by: 1. Slowing of the background, predominantly in the 6.5-7 Hz theta range with some intermixed alpha frequencies. 2. The presence of bilateral frontotemporal polymorphic delta activity seen during drowsiness. COMMENT: This study is consistent with an encephalopathy of a oqil-po-ezhuzdxp degree. Kar Soriano M.D., M.S.P.H. DR: LINDSEY JOB#: [id number] <Electronically signed by Kar Soriano MD> 12/27/18 1436 Impression/Recommendations Problems: (1) Seizures Assessment & Plan: Keppra 1500mg BID PO Consider addition of 2nd AED if any further seizures. May need to follow up with Keppra levels due to patients BSA Maintain SBP<140 Q4 Hour Neuro Checks Ativan 2mg PRN for seizure activity CT Head w/o contrast when able to rule out CVA - also for consideration of MRI if CT negative. - low suspicion of CVA due to normotensive status without risk factors of elevated BP/ HgBA1c or thyroid dysfunction. Na 135-145 Continue Gabapentin 600mg TID Check LFTs on increased doses (2) Morbid obesity (3) COPD (chronic obstructive pulmonary disease) (4) Uncontrolled seizures (5) Left-sided weakness (6) Knee osteomyelits, right Status: stable, progressing Recommendations Continue neuroleptic meds as per psychiatry Maintain SBP<140 PT/OT CT/ MRI follow up to rule out stroke - wait list for transfer and open MRI scanner Continue Lyrica 100 mg TID---will increase as needed Q4 hour Neuro Obs - NO NIGHTTIME OBS if stable Prevent delirium Maintain regular sleep schedule and reduce nighttime activities such as observations (if unnecessary) Check LFTS prior to D/C and encourage follow up if they remain elevated .May need to revise Vicky Fonseac N.P. Dec 28, 2018 23:54
[2018-12-29] VITALS: BP 119/109
[2018-12-29 04:00] VITALS: BP 122/78
--- NOTE | 2018-12-29 07:30 | NUR ---
HAND-OFF: Report given to TIMO HINOJOSA.
--- NOTE | 2018-12-29 07:40 | NUR ---
NURSE NOTES: Patient alert x4, on room air, no sing of distress and shortness of breath; no sign of chest pain; IV Right-Upper arm PICC line double lumen; side rails up and padded for seizure percussion, breaks engaged, bed at lowest position; call light within reach; will keep monitoring.
[2018-12-29 08:00] VITALS: BP 115/62
[2018-12-29 08:44] LABS: BASOPHILS % (AUTO) 0.9 % (0.0-2.0); EOSINOPHILS % (AUTO) 4.2 % (0.0-3.0); HEMATOCRIT 36.8 % (42.0-52.0); HEMOGLOBIN 12.5 G/DL (14.2-18.0); LYMPHOCYTES % (AUTO) 26.7 % (20.0-45.0); MEAN CORPUSCULAR VOLUME 90 FL (80-99); MONOCYTES % (AUTO) 6.4 % (1.0-10.0); NEUTROPHILS % (AUTO) 61.9 % (45.0-75.0); PLATELET COUNT 192 K/UL (150-450); RED BLOOD COUNT 4.09 M/UL (4.70-6.10); RED CELL DISTRIBUTION WIDTH 13.1 % (11.6-14.8)
[2018-12-29 09:11] LABS: ANION GAP 3 mmol/L (5-15); BLOOD UREA NITROGEN 20 mg/dL (7-18); CALCIUM 8.8 MG/DL (8.5-10.1); CARBON DIOXIDE 37 MMOL/L (21-32); CHLORIDE 101 MMOL/L (98-107); CREATININE 1.1 MG/DL (0.55-1.30); POTASSIUM 3.9 MMOL/L (3.5-5.1); SODIUM 141 MMOL/L (136-145)
[2018-12-29] MEDS: DULoxetine 30mg cap ORAL SCH (09:17)
[2018-12-29] MEDS: Heparin 5000 units/ml inj SUBQ SCH ×2 (09:20→21:40)
[2018-12-29] MEDS: Lyrica 50mg cap ORAL SCH ×3 (09:33→17:32)
--- NOTE | 2018-12-29 10:20 | NUR ---
PT WEEKLY PROGRESS NOTE Patient's progress has been limited by BLE pain and limited endurance. Patient able to transfer with SBA and to ambulate in hallway up to 150 ft with SBA without an AD. Patient would benefit from use of FWW for improved balance and safety with ambulation however patient declines. Patient will benefit from continued skilled inpatient PT intervention to improve level of functional mobility within patient tolerance.
--- NOTE | 2018-12-29 10:52 | Infectious Diseases Prog Note ---
Assessment/Plan Assessment/Plan B/l Leg cellulitis and panniculitis- in the setting of chronic venous stasis L side weakness/spasticity- thought be 2ry to seizures- r/O CVA- no active infectious process at present (pt afebrile- doubt meningitis at this moment) Afebrile No leukocytosis -CXR: No acute findings CVA HTN bipolar disorder w/ psychotic features tobacco abuse anxiety disorder chronic pain CHF seizure disorder COPD morbid obesity Dm2 HTN SN[facility] resident Plan: IV Dapto d# 5 ( pt Cr increased 30% will avoid Vanco) Would treat for 14 day ( End date 01/07/19) 12/25 sp Bactrim #4/14 and add IV Ancef #3/14 for cellulitis -Monitor CBC/CMP, temperatures -neuro f/u- plan for CT head, include neck as lump in back of neck; however pt did not fit on CT scan machine due to weight -aspiration precautions -wound care per hospital protocol Subjective Allergies: Coded Allergies: ASPIRIN (Verified Allergy, Unknown, 07/14/18) KETOROLAC (Verified Allergy, Unknown, 07/14/18) PENICILLINS (Verified Allergy, Unknown, 12/23/18) tolerated Ancef on 08/2018 Subjective Afebrile No leukocytosis Cellulitis slowly improving Objective Vital Signs Last 24 Hour Vital Signs Date Time Temp Pulse Resp B/P (MAP) Pulse Ox O2 Delivery O2 Flow Rate FiO2 12/29/18 09:49 98.3 12/29/18 09:17 95 115/62 12/29/18 09:00 Room Air 12/29/18 08:00 98.3 95 20 115/62 (79) 95 12/29/18 04:00 98.6 100 18 122/78 (93) 94 12/29/18 00:00 98.1 87 16 119/109 (112) 98 12/28/18 21:00 Room Air 12/28/18 20:00 98.1 87 16 134/71 (92) 94 12/28/18 16:00 98.3 81 19 122/75 (91) 97 12/28/18 12:00 98.3 79 19 119/70 (86) 98 Height (Feet): 5 Height (Inches): 10.00 Weight (Pounds): 489 Objective GEN: NAD, Satting well HEENT: NCAT, MMM Respiratory/Chest: CTAB, No W Cardiovascular: RRR, S1, S2 Abdomen: Soft, ND Ext. B/L Swelling and moderate erythema with skin lesions Laboratory Tests Test 12/29/18 08:35 White Blood Count 5.0 K/UL (4.8-10.8) Red Blood Count 4.09 M/UL (4.70-6.10) L Hemoglobin 12.5 G/DL (14.2-18.0) L Hematocrit 36.8 % (42.0-52.0) L Mean Corpuscular Volume 90 FL (80-99) Mean Corpuscular Hemoglobin 30.5 PG (27.0-31.0) Mean Corpuscular Hemoglobin Concent 33.8 G/DL (32.0-36.0) Red Cell Distribution Width 13.1 % (11.6-14.8) Platelet Count 192 K/UL (150-450) Mean Platelet Volume 5.5 FL (6.5-10.1) L Neutrophils (%) (Auto) 61.9 % (45.0-75.0) Lymphocytes (%) (Auto) 26.7 % (20.0-45.0) Monocytes (%) (Auto) 6.4 % (1.0-10.0) Eosinophils (%) (Auto) 4.2 % (0.0-3.0) H Basophils (%) (Auto) 0.9 % (0.0-2.0) Sodium Level 141 MMOL/L (136-145) Potassium Level 3.9 MMOL/L (3.5-5.1) Chloride Level 101 MMOL/L (98-107) Carbon Dioxide Level 37 MMOL/L (21-32) H Anion Gap 3 mmol/L (5-15) L Blood Urea Nitrogen 20 mg/dL (7-18) H Creatinine 1.1 MG/DL (0.55-1.30) Estimat Glomerular Filtration Rate > 60 mL/min (>60) Glucose Level 144 MG/DL (74-106) H Calcium Level 8.8 MG/DL (8.5-10.1) Current Medications Medications (Trade) Dose Ordered Sig/Luis Route PRN Reason Start Time Stop Time Status Last Admin Dose Admin Acetaminophen (Tylenol) 650 mg Q4H PRN ORAL fever 12/15/18 14:54 01/14/19 14:53 Amlodipine Besylate (Norvasc) 2.5 mg DAILY ORAL 12/27/18 09:00 01/26/19 08:59 12/29/18 09:17 Atorvastatin Calcium (Lipitor) 80 mg BEDTIME ORAL 12/15/18 21:00 01/14/19 20:59 12/28/18 21:05 Chlorhexidine Gluconate (Ruby-Hex 2%) 1 applic DAILY@2000 TOPIC 12/22/18 20:00 01/21/19 19:59 12/28/18 21:05 Clonidine HCl (Catapres Tab) 0.1 mg Q4H PRN ORAL For High Blood Pressure 12/15/18 14:56 01/14/19 14:55 Clopidogrel Bisulfate (Plavix) 75 mg DAILY ORAL 12/16/18 09:00 01/14/19 08:59 12/29/18 09:16 Daptomycin 900 mg/ Sodium Chloride 55 ml @ 110 mls/hr Q24H IV 12/25/18 14:00 01/01/19 13:59 12/28/18 14:57 Dextrose (Dextrose 50%) 25 ml Q30M PRN IV Hypoglycemia 12/15/18 15:15 01/13/19 23:44 Dextrose (Dextrose 50%) 50 ml Q30M PRN IV Hypoglycemia 12/15/18 15:15 01/13/19 23:44 Duloxetine HCl (Cymbalta) 30 mg DAILY ORAL 12/16/18 09:00 01/14/19 08:59 12/29/18 09:17 Furosemide (Lasix) 20 mg ONCE IV 12/21/18 17:00 01/20/19 16:59 12/27/18 16:14 Furosemide (Lasix) 20 mg Q6HR IV 12/22/18 00:00 01/21/19 00:00 12/29/18 05:10 Gabapentin (Neurontin) 600 mg THREE TIMES A DAY ORAL 12/15/18 18:00 01/14/19 08:59 12/29/18 09:17 Heparin Sodium (Porcine) (Heparin 5000 units/ml) 5,000 units EVERY 12 HOURS SUBQ 12/15/18 21:00 01/14/19 08:59 12/29/18 09:20 Hydromorphone HCl (Dilaudid) 3 mg Q4H PRN IVP Severe Pain (Pain Scale 7-10) 12/25/18 10:00 01/01/19 09:59 12/29/18 09:19 Levetiracetam (Keppra) 1,500 mg Q12HR ORAL 12/29/18 09:00 01/18/19 08:59 12/29/18 09:32 Nitroglycerin (Ntg) 0.4 mg Q5M X 3 DOSES PRN SL Prn Chest Pain 12/15/18 14:45 01/13/19 23:44 Ondansetron HCl (Zofran) 4 mg Q6H PRN IVP Nausea & Vomiting 12/15/18 14:55 01/14/19 14:54 12/17/18 10:19 Polyethylene Glycol (Miralax) 17 gm HSPRN PRN ORAL Constipation 12/15/18 14:55 01/14/19 14:54 Pregabalin (Lyrica) 100 mg THREE TIMES A DAY ORAL 12/26/18 09:00 01/19/19 22:59 12/29/18 09:33 Promethazine HCl/ Codeine (Phenergan with Codeine) 5 ml Q4H PRN ORAL For Cough 12/28/18 12:00 01/27/19 11:59 12/28/18 23:05 Trazodone HCl (Desyrel) 100 mg BEDTIME ORAL 12/15/18 21:00 01/14/19 20:59 12/28/18 21:05 Elliot Chauhan MD Dec 29, 2018 10:52
[2018-12-29 12:00] VITALS: BP 111/60
--- NOTE | 2018-12-29 12:26 | General Progress Note ---
Assessment/Plan Problem List: (1) Abdominal pannus ICD Codes: E65 - Localized adiposity SNOMED: 3046840931950 (2) Peripheral edema ICD Codes: R60.9 - Edema, unspecified SNOMED: 143609508 (3) Abdominal wall cellulitis ICD Codes: L03.311 - Cellulitis of abdominal wall SNOMED: 35815040 (4) Leg pain ICD Codes: M79.606 - Pain in leg, unspecified SNOMED: 52675613 (5) COPD (chronic obstructive pulmonary disease) ICD Codes: J44.9 - Chronic obstructive pulmonary disease, unspecified SNOMED: 08539814 (6) Seizures ICD Codes: R56.9 - Unspecified convulsions SNOMED: 15701306 (7) Morbid obesity ICD Codes: E66.01 - Morbid (severe) obesity due to excess calories SNOMED: 476879052 (8) Cerebrovascular accident ICD Codes: I63.9 - Cerebral infarction, unspecified SNOMED: 579302692 (9) Left-sided weakness ICD Codes: R53.1 - Weakness SNOMED: 062127244 Status: stable, progressing Assessment/Plan: pt diet neuro f/u wound care abx pain control cbc bmp am dc to snf Subjective Constitutional: Reports: weakness Allergies: Coded Allergies: ASPIRIN (Verified Allergy, Unknown, 07/14/18) KETOROLAC (Verified Allergy, Unknown, 07/14/18) PENICILLINS (Verified Allergy, Unknown, 12/23/18) tolerated Ancef on 08/2018 All Systems: reviewed and negative except above Subjective sleepy calm Objective Last 24 Hour Vital Signs Date Time Temp Pulse Resp B/P (MAP) Pulse Ox O2 Delivery O2 Flow Rate FiO2 12/29/18 12:00 98.6 90 20 111/60 (77) 94 12/29/18 09:49 98.3 12/29/18 09:17 95 115/62 12/29/18 09:00 Room Air 12/29/18 08:00 98.3 95 20 115/62 (79) 95 12/29/18 04:00 98.6 100 18 122/78 (93) 94 12/29/18 00:00 98.1 87 16 119/109 (112) 98 12/28/18 21:00 Room Air 12/28/18 20:00 98.1 87 16 134/71 (92) 94 12/28/18 16:00 98.3 81 19 122/75 (91) 97 Intake and Output 12/28/18 12/29/18 18:59 06:59 Intake Total 1515 ml 1200 ml Balance 1515 ml 1200 ml Intake Oral 1460 ml 1200 ml IV Total 55 ml # Voids 7 4 # Bowel Movements 1 Laboratory Tests 12/29/18 08:35: White Blood Count 5.0, Red Blood Count 4.09L, Hemoglobin 12.5L, Hematocrit 36.8L , Mean Corpuscular Volume 90, Mean Corpuscular Hemoglobin 30.5, Mean Corpuscular Hemoglobin Concent 33.8, Red Cell Distribution Width 13.1, Platelet Count 192, Mean Platelet Volume 5.5L, Neutrophils (%) (Auto) 61.9, Lymphocytes ( %) (Auto) 26.7, Monocytes (%) (Auto) 6.4, Eosinophils (%) (Auto) 4.2H, Basophils (%) (Auto) 0.9, Sodium Level 141, Potassium Level 3.9, Chloride Level 101, Carbon Dioxide Level 37H, Anion Gap 3L, Blood Urea Nitrogen 20H, Creatinine 1.1, Estimat Glomerular Filtration Rate > 60, Glucose Level 144H, Calcium Level 8.8 Height (Feet): 5 Height (Inches): 10.00 Weight (Pounds): 489 General Appearance: lethargic EENT: normal ENT inspection Neck: normal alignment Cardiovascular: normal peripheral pulses, normal rate, regular rhythm Respiratory/Chest: chest wall non-tender, lungs clear, normal breath sounds Abdomen: normal bowel sounds, non tender, soft Edema: 1+ Arm (L), 1+ Arm (R), 1+ Leg (L), 1+ Leg (R), 1+ Pedal (L), 1+ Pedal ( R), 1+ Generalized Edema: trace edema Neurologic: motor weakness Skin: normal pigmentation, warm/dry Ernesto Nicole DO Dec 29, 2018 12:26
[2018-12-29] MEDS: Losartan 25mg tab ORAL SCH (13:45)
--- NOTE | 2018-12-29 13:59 | Nephrology Progress Note ---
Assessment/Plan Problem List: (1) Hyponatremia (2) Morbid obesity (3) COPD (chronic obstructive pulmonary disease) Plan Low Na resolved cont per consultants Subjective ROS Limited/Unobtainable: No Objective Objective Last 24 Hour Vital Signs Date Time Temp Pulse Resp B/P (MAP) Pulse Ox O2 Delivery O2 Flow Rate FiO2 12/29/18 12:00 98.6 90 20 111/60 (77) 94 12/29/18 09:49 98.3 12/29/18 09:17 95 115/62 12/29/18 09:00 Room Air 12/29/18 08:00 98.3 95 20 115/62 (79) 95 12/29/18 04:00 98.6 100 18 122/78 (93) 94 12/29/18 00:00 98.1 87 16 119/109 (112) 98 12/28/18 21:00 Room Air 12/28/18 20:00 98.1 87 16 134/71 (92) 94 12/28/18 16:00 98.3 81 19 122/75 (91) 97 Intake and Output 12/28/18 12/29/18 18:59 06:59 Intake Total 1515 ml 1200 ml Balance 1515 ml 1200 ml Intake Oral 1460 ml 1200 ml IV Total 55 ml # Voids 7 4 # Bowel Movements 1 Laboratory Tests 12/29/18 08:35: White Blood Count 5.0, Red Blood Count 4.09L, Hemoglobin 12.5L, Hematocrit 36.8L , Mean Corpuscular Volume 90, Mean Corpuscular Hemoglobin 30.5, Mean Corpuscular Hemoglobin Concent 33.8, Red Cell Distribution Width 13.1, Platelet Count 192, Mean Platelet Volume 5.5L, Neutrophils (%) (Auto) 61.9, Lymphocytes ( %) (Auto) 26.7, Monocytes (%) (Auto) 6.4, Eosinophils (%) (Auto) 4.2H, Basophils (%) (Auto) 0.9, Sodium Level 141, Potassium Level 3.9, Chloride Level 101, Carbon Dioxide Level 37H, Anion Gap 3L, Blood Urea Nitrogen 20H, Creatinine 1.1, Estimat Glomerular Filtration Rate > 60, Glucose Level 144H, Calcium Level 8.8 Height (Feet): 5 Height (Inches): 10.00 Weight (Pounds): 489 General Appearance: no apparent distress Cardiovascular: tachycardia Respiratory/Chest: decreased breath sounds Abdomen: distended Objective no change Devante Taylor MD Dec 29, 2018 13:59
--- NOTE | 2018-12-29 14:04 | Pulmonology Progress Note ---
Assessment/Plan Problems: (1) Morbid obesity (2) Peripheral edema (3) Cellulitis (4) Seizures (5) Cerebrovascular accident (6) Left-sided weakness (7) COPD (chronic obstructive pulmonary disease) (8) Right heart failure (9) Lumbar spondylosis (10) ADALBERTO (obstructive sleep apnea) Assessment/Plan has cold now all meds /notes reviewed pt/ot increase dialudid to 4 mg and add Methadone 10Q8 respiratory treatment titrate fio2 to sat of 92% dvt prophylaxis awaiting for surgery to be scheduled. Subjective ROS Limited/Unobtainable: No Interval Events: wants more painn meds Constitutional: Reports: no symptoms HEENT: Repors: no symptoms Respiratory: Reports: no symptoms Allergies: Coded Allergies: ASPIRIN (Verified Allergy, Unknown, 07/14/18) KETOROLAC (Verified Allergy, Unknown, 07/14/18) PENICILLINS (Verified Allergy, Unknown, 12/23/18) tolerated Ancef on 08/2018 Objective Last 24 Hour Vital Signs Date Time Temp Pulse Resp B/P (MAP) Pulse Ox O2 Delivery O2 Flow Rate FiO2 12/29/18 12:00 98.6 90 20 111/60 (77) 94 12/29/18 09:49 98.3 12/29/18 09:17 95 115/62 12/29/18 09:00 Room Air 12/29/18 08:00 98.3 95 20 115/62 (79) 95 12/29/18 04:00 98.6 100 18 122/78 (93) 94 12/29/18 00:00 98.1 87 16 119/109 (112) 98 12/28/18 21:00 Room Air 12/28/18 20:00 98.1 87 16 134/71 (92) 94 12/28/18 16:00 98.3 81 19 122/75 (91) 97 Intake and Output 12/28/18 12/29/18 18:59 06:59 Intake Total 1515 ml 1200 ml Balance 1515 ml 1200 ml Intake Oral 1460 ml 1200 ml IV Total 55 ml # Voids 7 4 # Bowel Movements 1 Objective HEENT: normocephalic, atraumatic Respiratory/Chest: chest wall non-tender, lungs clear Cardiovascular: normal peripheral pulses, normal rate Abdomen: normal bowel sounds, no organomegaly, massive fat on abdomen Extremities: no cyanosis Skin: no lesions Laboratory Tests 12/29/18 08:35: White Blood Count 5.0, Red Blood Count 4.09L, Hemoglobin 12.5L, Hematocrit 36.8L , Mean Corpuscular Volume 90, Mean Corpuscular Hemoglobin 30.5, Mean Corpuscular Hemoglobin Concent 33.8, Red Cell Distribution Width 13.1, Platelet Count 192, Mean Platelet Volume 5.5L, Neutrophils (%) (Auto) 61.9, Lymphocytes ( %) (Auto) 26.7, Monocytes (%) (Auto) 6.4, Eosinophils (%) (Auto) 4.2H, Basophils (%) (Auto) 0.9, Sodium Level 141, Potassium Level 3.9, Chloride Level 101, Carbon Dioxide Level 37H, Anion Gap 3L, Blood Urea Nitrogen 20H, Creatinine 1.1, Estimat Glomerular Filtration Rate > 60, Glucose Level 144H, Calcium Level 8.8 Current Medications Medications (Trade) Dose Ordered Sig/Luis Route PRN Reason Start Time Stop Time Status Last Admin Dose Admin Acetaminophen (Tylenol) 650 mg Q4H PRN ORAL fever 12/15/18 14:54 01/14/19 14:53 Atorvastatin Calcium (Lipitor) 80 mg BEDTIME ORAL 12/15/18 21:00 01/14/19 20:59 12/28/18 21:05 Chlorhexidine Gluconate (Ruby-Hex 2%) 1 applic DAILY@1999 TOPIC 12/22/18 20:00 01/21/19 19:59 12/28/18 21:05 Clonidine HCl (Catapres Tab) 0.1 mg Q4H PRN ORAL For High Blood Pressure 12/15/18 14:56 01/14/19 14:55 Clopidogrel Bisulfate (Plavix) 75 mg DAILY ORAL 12/16/18 09:00 01/14/19 08:59 12/29/18 09:16 Daptomycin 900 mg/ Sodium Chloride 55 ml @ 110 mls/hr Q24H IV 12/25/18 14:00 01/01/19 13:59 12/28/18 14:57 Dextrose (Dextrose 50%) 25 ml Q30M PRN IV Hypoglycemia 12/15/18 15:15 01/13/19 23:44 Dextrose (Dextrose 50%) 50 ml Q30M PRN IV Hypoglycemia 12/15/18 15:15 01/13/19 23:44 Duloxetine HCl (Cymbalta) 30 mg DAILY ORAL 12/16/18 09:00 01/14/19 08:59 12/29/18 09:17 Furosemide (Lasix) 20 mg Q6HR IV 12/22/18 00:00 01/21/19 00:00 12/29/18 13:22 Gabapentin (Neurontin) 600 mg THREE TIMES A DAY ORAL 12/15/18 18:00 01/14/19 08:59 12/29/18 13:22 Heparin Sodium (Porcine) (Heparin 5000 units/ml) 5,000 units EVERY 12 HOURS SUBQ 12/15/18 21:00 01/14/19 08:59 12/29/18 09:20 Hydromorphone HCl (Dilaudid) 3 mg Q4H PRN IVP Severe Pain (Pain Scale 7-10) 12/25/18 10:00 01/01/19 09:59 12/29/18 13:22 Levetiracetam (Keppra) 1,500 mg Q12HR ORAL 12/29/18 09:00 01/18/19 08:59 12/29/18 09:32 Losartan Potassium (Cozaar) 25 mg DAILY ORAL 12/29/18 13:45 01/28/19 13:44 Nitroglycerin (Ntg) 0.4 mg Q5M X 3 DOSES PRN SL Prn Chest Pain 12/15/18 14:45 01/13/19 23:44 Ondansetron HCl (Zofran) 4 mg Q6H PRN IVP Nausea & Vomiting 12/15/18 14:55 01/14/19 14:54 12/17/18 10:19 Polyethylene Glycol (Miralax) 17 gm HSPRN PRN ORAL Constipation 12/15/18 14:55 01/14/19 14:54 Pregabalin (Lyrica) 100 mg THREE TIMES A DAY ORAL 12/26/18 09:00 01/19/19 22:59 12/29/18 13:22 Promethazine HCl/ Codeine (Phenergan with Codeine) 5 ml Q4H PRN ORAL For Cough 12/28/18 12:00 01/27/19 11:59 12/28/18 23:05 Trazodone HCl (Desyrel) 100 mg BEDTIME ORAL 12/15/18 21:00 01/14/19 20:59 12/28/18 21:05 Bill Dixon MD Dec 29, 2018 14:04
[2018-12-29] MEDS: DAPTOMYCIN IV SCH (14:37)
[2018-12-29] MEDS: NS IV SCH (14:37)
[2018-12-29 16:00] VITALS: BP 107/65
--- NOTE | 2018-12-29 17:00 | NUR ---
NURSE NOTES: Patient refused dressing on the lower extremities. Addendum: 12/29/18 at 1937 by Malika Martins RN patient refused dressing on the lower extremities to be changed.
--- NOTE | 2018-12-29 17:15 | Progress Note ---
DATE: 12/29/2018 SUBJECTIVE: This is a 53-year-old male patient, rule out CVA, but he still has a lot of anxiety and depression. That is why his attending has requested daily psychiatric consultation. MENTAL STATUS EXAMINATION: This is a 53-year-old male. Appearance is disheveled. Attitude, irritable and agitated. Affect, guarded and restricted. Intellect poor. Mood, depressed and anxious. Motor activity, psychomotor agitation. Attention span is poor. Orientation x2. Speech is low volume, slurred. Thought process, disorganized and illogical. Insight and judgment is poor. DIAGNOSIS: 1. Major depressive disorder, mild, recurrent. 2. Rule out generalized anxiety disorder. PLAN: Cymbalta 30 mg daily, Neurontin 600 mg three times a day, and trazodone 100 mg nightly. Provide him with 20 minutes of cognitive behavioral therapy to help him identify his automatic negative thoughts and convert negative thoughts to more positive thoughts to reduce depression, anxiety, and mood lability, and help him to have more adaptive behavioral pattern. Chart reviewed. Discussed with staff. Laney Mcghee M.D. DR: SHANEKA JOB#: [id number] CC:
--- NOTE | 2018-12-29 18:45 | General Progress Note ---
Assessment/Plan Assessment/Plan: (1) Lumbar DDD (2) Lumbar Spondylosis (3) Lumbar Radiculopathy (4) Morbid Obesity (5) Right knee pain (6) Right knee OA h/o ORIF We will sign off from patients care at this time due to another healthcare practitioner taking responsibility for patients pain management. D/w Dr. Magaña and he concurred. Subjective Date patient seen: Dec 29, 2018 Time patient seen: 06:15 - pm Allergies: Coded Allergies: ASPIRIN (Verified Allergy, Unknown, 07/14/18) KETOROLAC (Verified Allergy, Unknown, 07/14/18) PENICILLINS (Verified Allergy, Unknown, 12/23/18) tolerated Ancef on 08/2018 Subjective REVIEW OF SYSTEMS: Denies rash, fever, chills, sweating, dizziness, drowsiness, blurred vision, sore throat, change in weight. No nausea, vomiting, diarrhea, or blood in the stool or urine. No bowel or bladder incontinence. No dysuria. He is complaining of low back pain SUBJECTIVE: Patient continues to c/o pain which he continues to report is severe. Another healthcare practitioner has started the patient on Methadone 10mg TID and increased the Dilaudid to 4mg IV Q4H PRN. Due to this we will be signing off the patients care. Objective Last 24 Hour Vital Signs Date Time Temp Pulse Resp B/P (MAP) Pulse Ox O2 Delivery O2 Flow Rate FiO2 12/29/18 18:02 98.8 12/29/18 16:00 98.8 88 20 107/65 (79) 95 12/29/18 13:52 98.6 12/29/18 12:00 98.6 90 20 111/60 (77) 94 12/29/18 09:17 95 115/62 12/29/18 09:00 Room Air 12/29/18 08:00 98.3 95 20 115/62 (79) 95 12/29/18 04:00 98.6 100 18 122/78 (93) 94 12/29/18 00:00 98.1 87 16 119/109 (112) 98 12/28/18 21:00 Room Air 12/28/18 20:00 98.1 87 16 134/71 (92) 94 Intake and Output 12/28/18 12/29/18 18:59 06:59 Intake Total 1515 ml 1200 ml Balance 1515 ml 1200 ml Intake Oral 1460 ml 1200 ml IV Total 55 ml # Voids 7 4 # Bowel Movements 1 Laboratory Tests 12/29/18 08:35: White Blood Count 5.0, Red Blood Count 4.09L, Hemoglobin 12.5L, Hematocrit 36.8L , Mean Corpuscular Volume 90, Mean Corpuscular Hemoglobin 30.5, Mean Corpuscular Hemoglobin Concent 33.8, Red Cell Distribution Width 13.1, Platelet Count 192, Mean Platelet Volume 5.5L, Neutrophils (%) (Auto) 61.9, Lymphocytes ( %) (Auto) 26.7, Monocytes (%) (Auto) 6.4, Eosinophils (%) (Auto) 4.2H, Basophils (%) (Auto) 0.9, Sodium Level 141, Potassium Level 3.9, Chloride Level 101, Carbon Dioxide Level 37H, Anion Gap 3L, Blood Urea Nitrogen 20H, Creatinine 1.1, Estimat Glomerular Filtration Rate > 60, Glucose Level 144H, Calcium Level 8.8 Height (Feet): 5 Height (Inches): 10.00 Weight (Pounds): 489 Objective GENERAL: Alert, awake, and oriented x3. LUNGS: Decreased breath sounds bilaterally. HEART: S1 and S2, regular. ABDOMEN: Obese. EXTREMITIES: No cyanosis. No clubbing. No edema. NEURO: No changes. Eliezer Nicole Dec 29, 2018 18:45
--- NOTE | 2018-12-29 19:38 | NUR ---
HAND-OFF: Report given to MICAELA Reed.
[2018-12-29 20:00] VITALS: BP 115/66
--- NOTE | 2018-12-29 20:00 | NUR ---
NURSE NOTES: Pt is in bed, awake and verbal. No acute distress noted. Pt requests pain medication around the clock. pain medication will be given as ordered PRN. Bilat lower extremity cellulitis. Wound dressing dry and intact. Pt is asked to call for assistance before getting out of bed. Bed locked low in position,side rails up and call light within reach. Pt will be monitored.
--- NOTE | 2018-12-29 20:26 | NUR ---
CASE MANAGEMENT: REVIEW 12/29/2018 SI: PERIPHERAL EDEMA . LEFT SIDED WEAKNESS T 98.6 HR 90 RR 20 B/P 111/60 SATS 94% ON RA CO2 37 BUN 20 GLU 144 IS:DAPTOMYCIN 55ml IV DILAUDID 3mg LASIX 20mg IV LYRICA 100mg GABAPENTIN 600mg HEPARIN SUBQ PLAVIX 75mg KEPPRA 1,000mg NORVASC 2.5mg CYMBALTA 30mg MED/SURG STATUS
[2018-12-29] MEDS: Dyna-Hex 2% Top Sol 2oz TOPIC SCH (21:32)
[2018-12-29] MEDS: TraZODone 100mg tab ORAL SCH (21:33)
[2018-12-29] MEDS: Atorvastatin 80mg tab ORAL SCH (21:33)
--- NOTE | 2018-12-29 23:04 | Cardiology Progress Note ---
Assessment/Plan Assessment/Plan 1. Morbid obesity with panniculitis, normal LV systolic and diastolic function per recent echo, clear for "removal of pannus". 2. Chronic venous insufficiency, may have to replace amlodipine with ARBs in the view of leg edema. 3. HTN, well controlled, continue losartan. 4. COPD 5. Seizure D/O Subjective Subjective No cardiac events is reported. Objective Last 24 Hour Vital Signs Date Time Temp Pulse Resp B/P (MAP) Pulse Ox O2 Delivery O2 Flow Rate FiO2 12/29/18 20:00 98.3 89 18 115/66 (82) 94 12/29/18 18:02 98.8 12/29/18 16:00 98.8 88 20 107/65 (79) 95 12/29/18 13:52 98.6 12/29/18 12:00 98.6 90 20 111/60 (77) 94 12/29/18 09:17 95 115/62 12/29/18 09:00 Room Air 12/29/18 08:00 98.3 95 20 115/62 (79) 95 12/29/18 04:00 98.6 100 18 122/78 (93) 94 12/29/18 00:00 98.1 87 16 119/109 (112) 98 Intake and Output 12/28/18 12/29/18 19:00 07:00 Intake Total 1515 ml 1200 ml Balance 1515 ml 1200 ml Intake Oral 1460 ml 1200 ml IV Total 55 ml # Voids 7 4 # Bowel Movements 1 2D Echo: Normal LV systolic function, RVSP 34 mmHg, RAP elevated at 15 mmHg Laboratory Tests Test 12/29/18 08:35 White Blood Count 5.0 K/UL (4.8-10.8) Red Blood Count 4.09 M/UL (4.70-6.10) L Hemoglobin 12.5 G/DL (14.2-18.0) L Hematocrit 36.8 % (42.0-52.0) L Mean Corpuscular Volume 90 FL (80-99) Mean Corpuscular Hemoglobin 30.5 PG (27.0-31.0) Mean Corpuscular Hemoglobin Concent 33.8 G/DL (32.0-36.0) Red Cell Distribution Width 13.1 % (11.6-14.8) Platelet Count 192 K/UL (150-450) Mean Platelet Volume 5.5 FL (6.5-10.1) L Neutrophils (%) (Auto) 61.9 % (45.0-75.0) Lymphocytes (%) (Auto) 26.7 % (20.0-45.0) Monocytes (%) (Auto) 6.4 % (1.0-10.0) Eosinophils (%) (Auto) 4.2 % (0.0-3.0) H Basophils (%) (Auto) 0.9 % (0.0-2.0) Sodium Level 141 MMOL/L (136-145) Potassium Level 3.9 MMOL/L (3.5-5.1) Chloride Level 101 MMOL/L (98-107) Carbon Dioxide Level 37 MMOL/L (21-32) H Anion Gap 3 mmol/L (5-15) L Blood Urea Nitrogen 20 mg/dL (7-18) H Creatinine 1.1 MG/DL (0.55-1.30) Estimat Glomerular Filtration Rate > 60 mL/min (>60) Glucose Level 144 MG/DL (74-106) H Calcium Level 8.8 MG/DL (8.5-10.1) Objective HEENT: Atraumatic and normocephalic. Anicteric. Pupils are equal, round, and reactive to light and accommodation. NECK: JVP cannot be assessed due to obesity. No carotid bruit. CARDIOVASCULAR: Normal S1, S2. Regular rate and rhythm. No murmurs, gallops, or rubs. PMI is at fourth intercostal space at the midclavicular line. LUNGS: Clear to auscultation bilaterally. ABDOMEN: Distended due to pannus formation, cannot palpate hepatosplenomegaly. Positive bowel sounds. EXTREMITIES: No lower extremity edema, clubbing or cyanosis. Carlos Martins MD Dec 29, 2018 23:04
--- NOTE | 2018-12-29 23:49 | Neurology Progress Note ---
Interim History Interim History ROS Limited/Unobtainable: No Complaints: Left sided weakness/ spasticity Events: Stable, no seizures, hand strength stable Interim History This visit was performed on December 29, [address] Amador Brewster Objective Physical Exam Last Vital Signs Date Time Temp Pulse Resp B/P (MAP) Pulse Ox O2 Delivery O2 Flow Rate FiO2 12/29/18 20:00 98.3 89 18 115/66 (82) 94 12/29/18 09:00 Room Air 12/20/18 20:42 21 Laboratory Tests Test 12/29/18 08:35 White Blood Count 5.0 K/UL (4.8-10.8) Red Blood Count 4.09 M/UL (4.70-6.10) L Hemoglobin 12.5 G/DL (14.2-18.0) L Hematocrit 36.8 % (42.0-52.0) L Mean Corpuscular Volume 90 FL (80-99) Mean Corpuscular Hemoglobin 30.5 PG (27.0-31.0) Mean Corpuscular Hemoglobin Concent 33.8 G/DL (32.0-36.0) Red Cell Distribution Width 13.1 % (11.6-14.8) Platelet Count 192 K/UL (150-450) Mean Platelet Volume 5.5 FL (6.5-10.1) L Neutrophils (%) (Auto) 61.9 % (45.0-75.0) Lymphocytes (%) (Auto) 26.7 % (20.0-45.0) Monocytes (%) (Auto) 6.4 % (1.0-10.0) Eosinophils (%) (Auto) 4.2 % (0.0-3.0) H Basophils (%) (Auto) 0.9 % (0.0-2.0) Sodium Level 141 MMOL/L (136-145) Potassium Level 3.9 MMOL/L (3.5-5.1) Chloride Level 101 MMOL/L (98-107) Carbon Dioxide Level 37 MMOL/L (21-32) H Anion Gap 3 mmol/L (5-15) L Blood Urea Nitrogen 20 mg/dL (7-18) H Creatinine 1.1 MG/DL (0.55-1.30) Estimat Glomerular Filtration Rate > 60 mL/min (>60) Glucose Level 144 MG/DL (74-106) H Calcium Level 8.8 MG/DL (8.5-10.1) General: well developed, well nourished, other - Morbidly obese Head: normocophalic Neck: no rigidity EENT: benign Neurologic Exam Mental Status: awake, alert, oriented x4, normal cognition, good mathematical skills, normal recent memory, normal remote memory, preserved visuospatial function Speech: normal speech, no dysarthia Language: normal language, no aphasia Cranial Nerve II: fundus normal, visual bonilla, no papilledema Cranial Nerves III, IV, : PERRLA, EOMI, pupils Cranial Nerve V: normal facial sensations, temporales function normal, masseters function normal, pterygoids function normal Cranial Nerve VII: normal facial expressions, other Cranial Nerve VIII: normal hearing, no nystagmus Cranial Nerve IX: normal palate elevation, gag response Cranial Nerve X: no voice hoarseness Cranial Nerve XI: SCM symmetric, trapezii function normal Cranial Nerve XII: tongue midline, no tongue atrophy/fasciculations Motor System: normal muscle tone, no involuntary movement, no muscle wasting Sensory: normal pinprick, normal light touch, normal position sense, normal graphesthesia Coordination: normal heel to villarreal bilaterally, negative Romberg test Deep Tendon Reflexes: 1+ bicep (L), 1+ bicep (R), 1+ tricep (L), 1+ tricep (R) , 1+ brachioradialis (L), 1+ brachioradialis (R), 1+ knee (L), 1+ knee (R), 1+ ankle (L), 1+ ankle (R) Reflexes: flexor plantar (L), flexor plantar (R); extensor plantar (L), extensor plantar (R) Stance: other - Broad based Gait: stable Objective Left arm, predominantly hand weakness at this time. Alert and oriented, mood stable, calmer, less spasticity/ rigidity in left arm. Ambulatory with cellulitis persisting on RLE - ambulates each day, broad based gait with weakness bilaterally but greater on the left He does not have proximal left arm weakness at this time or facial weakness, tongue still but less deviated on exam . Impression/Recommendations Problems: (1) Seizures Assessment & Plan: Keppra 1500mg BID PO Maintain SBP<140 Q4 Hour Neuro Checks Ativan 2mg PRN for seizure activity CT Head w/o contrast when able to rule out CVA - also for consideration of MRI if CT negative. - low suspicion of CVA due to normotensive status without risk factors of elevated BP/ HgBA1c or thyroid dysfunction. Na 135-145 Continue pain management - Lyrica 100mg TID - Continue Gabapentin 600mg TID Intense PT recommended (2) Morbid obesity (3) COPD (chronic obstructive pulmonary disease) (4) Uncontrolled seizures (5) Left-sided weakness Assessment & Plan: No seizure activity captured on EEG but mild to moderate degree of encephalopathy seen. (6) Knee osteomyelits, right Status: stable, tolerating diet Recommendations Q4 hour Neuro Obs - NO NIGHTTIME OBS if stable Prevent delirium Maintain regular sleep schedule and reduce nighttime activities such as observations (if unnecessary) Check LFTS prior to D/C and encourage follow up if they remain elevated .May need to revise Vicky Fonseca N.P. Dec 29, 2018 23:49
[2018-12-30] VITALS: BP 105/59
--- NOTE | 2018-12-30 01:36 | Neurology Progress Note ---
Interim History Interim History ROS Limited/Unobtainable: No Complaints: Seizures/ Weakness Interim History This visit was performed on December 30, [address] Amador Brewster. Review of Systems Neuro Review of Systems Patient reporting seizure activity overnight with left leg weakness and slipping , hitting back of his head in the shower. He remains oriented but has been sleepier/ more lethargic since unwitnessed episode in shower. All Systems: reviewed and negative except above Objective Physical Exam Last Vital Signs Date Time Temp Pulse Resp B/P (MAP) Pulse Ox O2 Delivery O2 Flow Rate FiO2 12/30/18 00:00 98.9 88 16 105/59 (74) 95 12/29/18 21:00 Room Air Laboratory Tests Test 12/29/18 08:35 White Blood Count 5.0 K/UL (4.8-10.8) Red Blood Count 4.09 M/UL (4.70-6.10) L Hemoglobin 12.5 G/DL (14.2-18.0) L Hematocrit 36.8 % (42.0-52.0) L Mean Corpuscular Volume 90 FL (80-99) Mean Corpuscular Hemoglobin 30.5 PG (27.0-31.0) Mean Corpuscular Hemoglobin Concent 33.8 G/DL (32.0-36.0) Red Cell Distribution Width 13.1 % (11.6-14.8) Platelet Count 192 K/UL (150-450) Mean Platelet Volume 5.5 FL (6.5-10.1) L Neutrophils (%) (Auto) 61.9 % (45.0-75.0) Lymphocytes (%) (Auto) 26.7 % (20.0-45.0) Monocytes (%) (Auto) 6.4 % (1.0-10.0) Eosinophils (%) (Auto) 4.2 % (0.0-3.0) H Basophils (%) (Auto) 0.9 % (0.0-2.0) Sodium Level 141 MMOL/L (136-145) Potassium Level 3.9 MMOL/L (3.5-5.1) Chloride Level 101 MMOL/L (98-107) Carbon Dioxide Level 37 MMOL/L (21-32) H Anion Gap 3 mmol/L (5-15) L Blood Urea Nitrogen 20 mg/dL (7-18) H Creatinine 1.1 MG/DL (0.55-1.30) Estimat Glomerular Filtration Rate > 60 mL/min (>60) Glucose Level 144 MG/DL (74-106) H Calcium Level 8.8 MG/DL (8.5-10.1) General: well developed, other - Morbidly obese Head: normocophalic Neck: no rigidity EENT: benign Neurologic Exam Mental Status: awake, oriented x4, normal cognition, good mathematical skills, normal recent memory, normal remote memory, preserved visuospatial function Speech: normal speech, no dysarthia Language: normal language, no aphasia Cranial Nerve II: fundus normal, visual bonilla, no papilledema Cranial Nerves III, IV, : PERRLA, EOMI, pupils Cranial Nerve V: normal facial sensations, temporales function normal, masseters function normal, pterygoids function normal Cranial Nerve VII: normal facial expressions, other Cranial Nerve VIII: normal hearing, no nystagmus Cranial Nerve IX: normal palate elevation, gag response Cranial Nerve X: no voice hoarseness Cranial Nerve XI: SCM symmetric, trapezii function normal Cranial Nerve XII: tongue midline, no tongue atrophy/fasciculations Motor System: normal muscle tone, no involuntary movement, no muscle wasting Sensory: normal pinprick, normal light touch, normal position sense, normal graphesthesia Coordination: normal heel to villarreal bilaterally, negative Romberg test Deep Tendon Reflexes: 1+ bicep (L), 1+ bicep (R), 1+ tricep (L), 1+ tricep (R) , 1+ brachioradialis (L), 1+ brachioradialis (R), 1+ knee (L), 1+ knee (R), 1+ ankle (L), 1+ ankle (R) Reflexes: flexor plantar (L), flexor plantar (R); extensor plantar (L), extensor plantar (R) Stance: other - Broad based Gait: stable Objective Left arm, predominantly hand weakness at this time. Alert and oriented Mood stable, some mild aphasia today and drowsiness Ambulatory with cellulitis persisting on BLE He does not have proximal left arm weakness at this time, mild facial weakness, tongue deviated on exam Impression/Recommendations Problems: (1) Seizures Assessment & Plan: Keppra 1500mg BID PO Maintain SBP<140 Q4 Hour Neuro Checks Ativan 2mg PRN for seizure activity CT Head w/o contrast when able to rule out CVA - also for consideration of MRI if CT negative. - low suspicion of CVA due to normotensive status without risk factors of elevated BP/ HgBA1c or thyroid dysfunction. Na 135-145 Continue pain management - Lyrica 100mg TID - Continue Gabapentin 600mg TID Intense PT recommended (2) Morbid obesity (3) COPD (chronic obstructive pulmonary disease) (4) Uncontrolled seizures (5) Left-sided weakness Assessment & Plan: No seizure activity captured on EEG but mild to moderate degree of encephalopathy seen. (6) Knee osteomyelits, right Status: stable, tolerating diet Recommendations Increase Keppra to 2g/ day, CONSIDER adding Lamictal 25mg PO QD x 2 weeks, then 50mg PO QD x 2 weeks, then 100mg PO QD x 1 week, then may increase by 50mg / day every 1-2 weeks to regain seizure control. EEG ordered to look for subclinical evidence of activity. Q4 hour Neuro Obs - NO NIGHTTIME OBS if stable Prevent delirium Maintain regular sleep schedule and reduce nighttime activities such as observations (if unnecessary) Check LFTS prior to D/C and encourage follow up if they remain elevated .May need to revise Vicky Fonseca N.P. Dec 30, 2018 01:36
[2018-12-30] MEDS: Promethazine/Codeine 5ml UD ORAL PRN (03:46)
[2018-12-30 04:00] VITALS: BP 113/74
--- NOTE | 2018-12-30 04:42 | NUR ---
NURSE NOTES: Pt's left leg dressing changed.
[2018-12-30 06:13] LABS: BASOPHILS % (AUTO) 0.8 % (0.0-2.0); EOSINOPHILS % (AUTO) 4.5 % (0.0-3.0); HEMATOCRIT 36.7 % (42.0-52.0); HEMOGLOBIN 12.2 G/DL (14.2-18.0); MEAN CORPUSCULAR VOLUME 91 FL (80-99); MONOCYTES % (AUTO) 9.4 % (1.0-10.0); NEUTROPHILS % (AUTO) 51.4 % (45.0-75.0); PLATELET COUNT 216 K/UL (150-450); RED BLOOD COUNT 4.04 M/UL (4.70-6.10); RED CELL DISTRIBUTION WIDTH 13.2 % (11.6-14.8); WHITE BLOOD COUNT 5.5 K/UL (4.8-10.8)
[2018-12-30 06:58] LABS: ALANINE AMINOTRANSFERASE 30 U/L (12-78); ALBUMIN 2.6 G/DL (3.4-5.0); ALBUMIN/GLOBULIN RATIO 0.6 (1.0-2.7); ALKALINE PHOSPHATASE 130 U/L (46-116); ANION GAP 3 mmol/L (5-15); ASPARTATE AMINO TRANSFERASE 33 U/L (15-37); BILIRUBIN,TOTAL 0.5 MG/DL (0.2-1.0); BLOOD UREA NITROGEN 19 mg/dL (7-18); CARBON DIOXIDE 35 MMOL/L (21-32); CHLORIDE 99 MMOL/L (98-107); POTASSIUM 3.9 MMOL/L (3.5-5.1); SODIUM 137 MMOL/L (136-145)
[2018-12-30 07:25] LABS: PHOSPHORUS 3.9 MG/DL (2.5-4.9)
--- NOTE | 2018-12-30 07:30 | NUR ---
HAND-OFF: Report given to MICAELA Martins.
--- NOTE | 2018-12-30 07:52 | NUR ---
NURSE NOTES: Patient alert x4, on room air, no sing distress, no sing of shortness of breath; no sign of chest pain; PICC on the right upper arm flushes well; dressing on the lower extremities dry and intact. bed at lowest position, side rails up x2, breaks engaged. call light within reach. will keep monitoring.
[2018-12-30 08:00] VITALS: BP 138/81
[2018-12-30] MEDS: Losartan 25mg tab ORAL SCH (09:33)
[2018-12-30] MEDS: Lyrica 50mg cap ORAL SCH ×3 (09:33→17:34)
[2018-12-30] MEDS: DULoxetine 30mg cap ORAL SCH (09:33)
[2018-12-30] MEDS: Heparin 5000 units/ml inj SUBQ SCH ×2 (09:35→22:11)
--- NOTE | 2018-12-30 11:49 | NUR ---
NURSE NOTES: I was informed by Charge nurse, Toño, that there is a discrepancy on the pexis under my name and the name of the medication was Lyrica. I remember administering this medication to patient Fredo Conde [id number], I checked on eMAR for this patient and showed the charge nurse the given time of the medication. CN advised me to call pharmacy and I called and spoke to Debbie from pharmacy. Debbie said the discrepancy is from 12/29/2018 not today, . I explained Debbie that I removed the medications in the moring of 12/29/2018 and patient said he wants his medications together with Diludid. However the Dilaudid was due the time I went to give medication to patient. I return all the medication and witnessed by nurse/charge nurse. I didn't recall the person who witnessed it since I have other medications that I was asking for different nurses's and charge nurse to witness for me. I ask Wellington to transfer me to the charge person for pharmacy and I left a message regarding the matter. Immediately [facility] called back saying that they found the extra Lyrica medication and she told me to write a discrepancy note. I explained the situation to the charge Nurse, Toño and she witnessed when I do the discrepancy note on the pexis.
[2018-12-30 12:00] VITALS: BP 116/69
--- NOTE | 2018-12-30 12:23 | Pulmonology Progress Note ---
Assessment/Plan Problems: (1) Morbid obesity (2) Peripheral edema (3) Cellulitis (4) Seizures (5) Cerebrovascular accident (6) Left-sided weakness (7) COPD (chronic obstructive pulmonary disease) (8) Right heart failure (9) Lumbar spondylosis (10) ADALBERTO (obstructive sleep apnea) Assessment/Plan coughing up dark/ brown phlegm. add levofloxacin all meds /notes reviewed pt/ot increase dialudid to 4 mg and add Methadone 10Q8 respiratory treatment titrate fio2 to sat of 92% dvt prophylaxis awaiting for surgery to be scheduled. Subjective ROS Limited/Unobtainable: Yes Allergies: Coded Allergies: ASPIRIN (Verified Allergy, Unknown, 07/14/18) KETOROLAC (Verified Allergy, Unknown, 07/14/18) PENICILLINS (Verified Allergy, Unknown, 12/23/18) tolerated Ancef on 08/2018 Objective Last 24 Hour Vital Signs Date Time Temp Pulse Resp B/P (MAP) Pulse Ox O2 Delivery O2 Flow Rate FiO2 12/30/18 10:02 98.4 12/30/18 09:33 138/81 12/30/18 09:00 Room Air 12/30/18 08:00 98.4 91 18 138/81 (100) 94 12/30/18 04:00 98.9 93 18 113/74 (87) 95 12/30/18 00:00 98.9 88 16 105/59 (74) 95 12/29/18 21:00 Room Air 12/29/18 20:00 98.3 89 18 115/66 (82) 94 12/29/18 16:00 98.8 88 20 107/65 (79) 95 12/29/18 13:52 98.6 Intake and Output 12/29/18 12/30/18 19:00 07:00 Intake Total 1440 ml 1200 ml Balance 1440 ml 1200 ml Intake Oral 1440 ml 1200 ml # Voids 4 6 Objective HEENT: normocephalic, atraumatic Respiratory/Chest: chest wall non-tender, lungs clear Cardiovascular: normal peripheral pulses, normal rate Abdomen: normal bowel sounds, no organomegaly, massive fat on abdomen Extremities: no cyanosis Skin: no lesions Laboratory Tests 12/30/18 05:38: White Blood Count 5.5, Red Blood Count 4.04L, Hemoglobin 12.2L, Hematocrit 36.7L , Mean Corpuscular Volume 91, Mean Corpuscular Hemoglobin 30.1, Mean Corpuscular Hemoglobin Concent 33.2, Red Cell Distribution Width 13.2, Platelet Count 216, Mean Platelet Volume 5.3L, Neutrophils (%) (Auto) 51.4, Lymphocytes ( %) (Auto) 34.0, Monocytes (%) (Auto) 9.4, Eosinophils (%) (Auto) 4.5H, Basophils (%) (Auto) 0.8, Sodium Level 137, Potassium Level 3.9, Chloride Level 99, Carbon Dioxide Level 35H, Anion Gap 3L, Blood Urea Nitrogen 19H, Creatinine 1.0, Estimat Glomerular Filtration Rate > 60, Glucose Level 89, Calcium Level 9.0, Phosphorus Level 3.9, Magnesium Level 1.7L, Total Bilirubin 0.5, Aspartate Amino Transf (AST/SGOT) 33, Alanine Aminotransferase (ALT/SGPT) 30, Alkaline Phosphatase 130H, Total Protein 6.6, Albumin 2.6L, Globulin 4.0, Albumin/ Globulin Ratio 0.6L Current Medications Medications (Trade) Dose Ordered Sig/Luis Route PRN Reason Start Time Stop Time Status Last Admin Dose Admin Acetaminophen (Tylenol) 650 mg Q4H PRN ORAL fever 12/15/18 14:54 01/14/19 14:53 Atorvastatin Calcium (Lipitor) 80 mg BEDTIME ORAL 12/15/18 21:00 01/14/19 20:59 12/29/18 21:33 Chlorhexidine Gluconate (Ruby-Hex 2%) 1 applic DAILY@2000 TOPIC 12/22/18 20:00 01/21/19 19:59 12/29/18 21:32 Clonidine HCl (Catapres Tab) 0.1 mg Q4H PRN ORAL For High Blood Pressure 12/15/18 14:56 01/14/19 14:55 Clopidogrel Bisulfate (Plavix) 75 mg DAILY ORAL 12/16/18 09:00 01/14/19 08:59 12/30/18 09:33 Daptomycin 900 mg/ Sodium Chloride 55 ml @ 110 mls/hr Q24H IV 12/25/18 14:00 01/01/19 13:59 12/29/18 14:37 Dextrose (Dextrose 50%) 25 ml Q30M PRN IV Hypoglycemia 12/15/18 15:15 01/13/19 23:44 Dextrose (Dextrose 50%) 50 ml Q30M PRN IV Hypoglycemia 12/15/18 15:15 01/13/19 23:44 Duloxetine HCl (Cymbalta) 30 mg DAILY ORAL 12/16/18 09:00 01/14/19 08:59 12/30/18 09:33 Furosemide (Lasix) 20 mg Q6HR IV 12/22/18 00:00 01/21/19 00:00 12/30/18 05:31 Gabapentin (Neurontin) 600 mg THREE TIMES A DAY ORAL 12/15/18 18:00 01/14/19 08:59 12/30/18 09:34 Heparin Sodium (Porcine) (Heparin 5000 units/ml) 5,000 units EVERY 12 HOURS SUBQ 12/15/18 21:00 01/14/19 08:59 12/30/18 09:35 Hydromorphone HCl (Dilaudid) 4 mg Q4H PRN IVP Severe Breakthrough Pain 12/29/18 18:00 01/01/19 09:59 12/30/18 09:32 Levetiracetam (Keppra) 1,500 mg Q12HR ORAL 12/29/18 09:00 01/18/19 08:59 12/30/18 09:34 Losartan Potassium (Cozaar) 25 mg DAILY ORAL 12/29/18 13:45 01/28/19 13:44 12/30/18 09:33 Methadone HCl (Methadone HCl) 10 mg EVERY 8 HOURS ORAL 12/29/18 22:00 01/05/19 21:59 12/30/18 05:31 Nitroglycerin (Ntg) 0.4 mg Q5M X 3 DOSES PRN SL Prn Chest Pain 12/15/18 14:45 01/13/19 23:44 Ondansetron HCl (Zofran) 4 mg Q6H PRN IVP Nausea & Vomiting 12/15/18 14:55 01/14/19 14:54 12/17/18 10:19 Polyethylene Glycol (Miralax) 17 gm HSPRN PRN ORAL Constipation 12/15/18 14:55 01/14/19 14:54 Pregabalin (Lyrica) 100 mg THREE TIMES A DAY ORAL 12/26/18 09:00 01/19/19 22:59 12/30/18 09:33 Promethazine HCl/ Codeine (Phenergan with Codeine) 5 ml Q4H PRN ORAL For Cough 12/28/18 12:00 01/27/19 11:59 12/30/18 03:46 Trazodone HCl (Desyrel) 100 mg BEDTIME ORAL 12/15/18 21:00 01/14/19 20:59 12/29/18 21:33 Bill Dixon MD Dec 30, 2018 12:23
--- NOTE | 2018-12-30 13:20 | General Progress Note ---
Assessment/Plan Problem List: (1) Abdominal pannus ICD Codes: E65 - Localized adiposity SNOMED: 7887615597393 (2) Peripheral edema ICD Codes: R60.9 - Edema, unspecified SNOMED: 073617289 (3) Abdominal wall cellulitis ICD Codes: L03.311 - Cellulitis of abdominal wall SNOMED: 62128970 (4) Leg pain ICD Codes: M79.606 - Pain in leg, unspecified SNOMED: 63794589 (5) COPD (chronic obstructive pulmonary disease) ICD Codes: J44.9 - Chronic obstructive pulmonary disease, unspecified SNOMED: 17720152 (6) Seizures ICD Codes: R56.9 - Unspecified convulsions SNOMED: 37963255 (7) Morbid obesity ICD Codes: E66.01 - Morbid (severe) obesity due to excess calories SNOMED: 809635901 (8) Cerebrovascular accident ICD Codes: I63.9 - Cerebral infarction, unspecified SNOMED: 717899504 (9) Left-sided weakness ICD Codes: R53.1 - Weakness SNOMED: 452953413 Status: stable, progressing Assessment/Plan: pt diet neuro f/u wound care abx pain control cbc bmp am dc to snf Subjective Constitutional: Reports: weakness Allergies: Coded Allergies: ASPIRIN (Verified Allergy, Unknown, 07/14/18) KETOROLAC (Verified Allergy, Unknown, 07/14/18) PENICILLINS (Verified Allergy, Unknown, 12/23/18) tolerated Ancef on 08/2018 All Systems: reviewed and negative except above Subjective sleepy calm Objective Last 24 Hour Vital Signs Date Time Temp Pulse Resp B/P (MAP) Pulse Ox O2 Delivery O2 Flow Rate FiO2 12/30/18 12:00 98.0 90 20 116/69 (85) 95 12/30/18 10:02 98.4 12/30/18 09:33 138/81 12/30/18 09:00 Room Air 12/30/18 08:00 98.4 91 18 138/81 (100) 94 12/30/18 04:00 98.9 93 18 113/74 (87) 95 12/30/18 00:00 98.9 88 16 105/59 (74) 95 12/29/18 21:00 Room Air 12/29/18 20:00 98.3 89 18 115/66 (82) 94 12/29/18 16:00 98.8 88 20 107/65 (79) 95 12/29/18 13:52 98.6 Intake and Output 12/29/18 12/30/18 19:00 07:00 Intake Total 1440 ml 1200 ml Balance 1440 ml 1200 ml Intake Oral 1440 ml 1200 ml # Voids 4 6 Laboratory Tests 12/30/18 05:38: White Blood Count 5.5, Red Blood Count 4.04L, Hemoglobin 12.2L, Hematocrit 36.7L , Mean Corpuscular Volume 91, Mean Corpuscular Hemoglobin 30.1, Mean Corpuscular Hemoglobin Concent 33.2, Red Cell Distribution Width 13.2, Platelet Count 216, Mean Platelet Volume 5.3L, Neutrophils (%) (Auto) 51.4, Lymphocytes ( %) (Auto) 34.0, Monocytes (%) (Auto) 9.4, Eosinophils (%) (Auto) 4.5H, Basophils (%) (Auto) 0.8, Sodium Level 137, Potassium Level 3.9, Chloride Level 99, Carbon Dioxide Level 35H, Anion Gap 3L, Blood Urea Nitrogen 19H, Creatinine 1.0, Estimat Glomerular Filtration Rate > 60, Glucose Level 89, Calcium Level 9.0, Phosphorus Level 3.9, Magnesium Level 1.7L, Total Bilirubin 0.5, Aspartate Amino Transf (AST/SGOT) 33, Alanine Aminotransferase (ALT/SGPT) 30, Alkaline Phosphatase 130H, Total Protein 6.6, Albumin 2.6L, Globulin 4.0, Albumin/ Globulin Ratio 0.6L Height (Feet): 5 Height (Inches): 10.00 Weight (Pounds): 494 General Appearance: lethargic EENT: normal ENT inspection Neck: normal alignment Cardiovascular: normal peripheral pulses, normal rate, regular rhythm Respiratory/Chest: chest wall non-tender, lungs clear, normal breath sounds Abdomen: normal bowel sounds, non tender, distended Extremities: normal inspection Edema: 1+ Arm (L), 1+ Arm (R), 1+ Leg (L), 1+ Leg (R), 1+ Pedal (L), 1+ Pedal ( R), 1+ Generalized Edema: trace edema Neurologic: responsive, motor weakness Skin: normal pigmentation, warm/dry Ernesto Nicole DO Dec 30, 2018 13:20
--- NOTE | 2018-12-30 13:22 | NUR ---
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 LEFT SIDED WEAKNESS VS: BP 138/81, P 93, T 98.9, RR 20, SpO2 94 RBC 4.04, H&H 12.2/36.7, BUN 19, ALK PHOS 130, MAG 1.7 IS:HEPARIN SUBQ GABAPENTIN 600mg KEPPRA 1,500 PLAVIX 75mg CYMBALTA 30mg LYRICA 100mg DILAUDID 4mg IVP METHADONE 10mg PT IS WAITING FOR BED AT [facility] MED/SURG STATUS
--- NOTE | 2018-12-30 13:28 | NUR ---
PERSONNEL ASSISTANT NOTES SPOKE WITH SADA AT [facility] THEY STILL HAVE NO BED AVAILABLE FOR THIS PATIENT.
[2018-12-30] MEDS: Levofloxacin 500mg tab ORAL SCH (13:31)
--- NOTE | 2018-12-30 14:02 | Infectious Diseases Prog Note ---
Assessment/Plan Assessment/Plan B/l Leg cellulitis and panniculitis- in the setting of chronic venous stasis L side weakness/spasticity- thought be 2ry to seizures- r/O CVA- no active infectious process at present (pt afebrile- doubt meningitis at this moment) Afebrile No leukocytosis -CXR: No acute findings CVA HTN bipolar disorder w/ psychotic features tobacco abuse anxiety disorder chronic pain CHF seizure disorder COPD morbid obesity Dm2 HTN SNF resident Plan: IV Dapto d# 6 ( pt Cr increased 30% will avoid Vanco) Would treat for 14 day ( End date 01/07/19) 12/25 sp Bactrim #4/14 and add IV Ancef #3/14 for cellulitis -Monitor CBC/CMP, temperatures -neuro f/u- plan for CT head, include neck as lump in back of neck; however pt did not fit on CT scan machine due to weight -aspiration precautions -wound care per hospital protocol Subjective Allergies: Coded Allergies: ASPIRIN (Verified Allergy, Unknown, 07/14/18) KETOROLAC (Verified Allergy, Unknown, 07/14/18) PENICILLINS (Verified Allergy, Unknown, 12/23/18) tolerated Ancef on 08/2018 Subjective Afebrile No leukocytosis Objective Vital Signs Last 24 Hour Vital Signs Date Time Temp Pulse Resp B/P (MAP) Pulse Ox O2 Delivery O2 Flow Rate FiO2 12/30/18 12:00 98.0 90 20 116/69 (85) 95 12/30/18 10:02 98.4 12/30/18 09:33 138/81 12/30/18 09:00 Room Air 12/30/18 08:00 98.4 91 18 138/81 (100) 94 12/30/18 04:00 98.9 93 18 113/74 (87) 95 12/30/18 00:00 98.9 88 16 105/59 (74) 95 12/29/18 21:00 Room Air 12/29/18 20:00 98.3 89 18 115/66 (82) 94 12/29/18 16:00 98.8 88 20 107/65 (79) 95 Height (Feet): 5 Height (Inches): 10.00 Weight (Pounds): 494 Objective GEN: NAD, Satting well HEENT: NCAT, MMM Respiratory/Chest: CTAB, No W Cardiovascular: RRR, S1, S2 Abdomen: Soft, ND Ext. LE in bandages B/L Laboratory Tests Test 12/30/18 05:38 White Blood Count 5.5 K/UL (4.8-10.8) Red Blood Count 4.04 M/UL (4.70-6.10) L Hemoglobin 12.2 G/DL (14.2-18.0) L Hematocrit 36.7 % (42.0-52.0) L Mean Corpuscular Volume 91 FL (80-99) Mean Corpuscular Hemoglobin 30.1 PG (27.0-31.0) Mean Corpuscular Hemoglobin Concent 33.2 G/DL (32.0-36.0) Red Cell Distribution Width 13.2 % (11.6-14.8) Platelet Count 216 K/UL (150-450) Mean Platelet Volume 5.3 FL (6.5-10.1) L Neutrophils (%) (Auto) 51.4 % (45.0-75.0) Lymphocytes (%) (Auto) 34.0 % (20.0-45.0) Monocytes (%) (Auto) 9.4 % (1.0-10.0) Eosinophils (%) (Auto) 4.5 % (0.0-3.0) H Basophils (%) (Auto) 0.8 % (0.0-2.0) Sodium Level 137 MMOL/L (136-145) Potassium Level 3.9 MMOL/L (3.5-5.1) Chloride Level 99 MMOL/L (98-107) Carbon Dioxide Level 35 MMOL/L (21-32) H Anion Gap 3 mmol/L (5-15) L Blood Urea Nitrogen 19 mg/dL (7-18) H Creatinine 1.0 MG/DL (0.55-1.30) Estimat Glomerular Filtration Rate > 60 mL/min (>60) Glucose Level 89 MG/DL (74-106) Calcium Level 9.0 MG/DL (8.5-10.1) Phosphorus Level 3.9 MG/DL (2.5-4.9) Magnesium Level 1.7 MG/DL (1.8-2.4) L Total Bilirubin 0.5 MG/DL (0.2-1.0) Aspartate Amino Transf (AST/SGOT) 33 U/L (15-37) Alanine Aminotransferase (ALT/SGPT) 30 U/L (12-78) Alkaline Phosphatase 130 U/L (46-116) H Total Protein 6.6 G/DL (6.4-8.2) Albumin 2.6 G/DL (3.4-5.0) L Globulin 4.0 g/dL Albumin/Globulin Ratio 0.6 (1.0-2.7) L Current Medications Medications (Trade) Dose Ordered Sig/Luis Route PRN Reason Start Time Stop Time Status Last Admin Dose Admin Acetaminophen (Tylenol) 650 mg Q4H PRN ORAL fever 12/15/18 14:54 01/14/19 14:53 Atorvastatin Calcium (Lipitor) 80 mg BEDTIME ORAL 12/15/18 21:00 01/14/19 20:59 12/29/18 21:33 Chlorhexidine Gluconate (Ruby-Hex 2%) 1 applic DAILY@2000 TOPIC 12/22/18 20:00 01/21/19 19:59 12/29/18 21:32 Clonidine HCl (Catapres Tab) 0.1 mg Q4H PRN ORAL For High Blood Pressure 12/15/18 14:56 01/14/19 14:55 Clopidogrel Bisulfate (Plavix) 75 mg DAILY ORAL 12/16/18 09:00 01/14/19 08:59 12/30/18 09:33 Daptomycin 900 mg/ Sodium Chloride 55 ml @ 110 mls/hr Q24H IV 12/25/18 14:00 01/01/19 13:59 12/29/18 14:37 Dextrose (Dextrose 50%) 25 ml Q30M PRN IV Hypoglycemia 12/15/18 15:15 01/13/19 23:44 Dextrose (Dextrose 50%) 50 ml Q30M PRN IV Hypoglycemia 12/15/18 15:15 01/13/19 23:44 Duloxetine HCl (Cymbalta) 30 mg DAILY ORAL 12/16/18 09:00 01/14/19 08:59 12/30/18 09:33 Furosemide (Lasix) 20 mg Q6HR IV 12/22/18 00:00 01/21/19 00:00 12/30/18 13:32 Gabapentin (Neurontin) 600 mg THREE TIMES A DAY ORAL 12/15/18 18:00 01/14/19 08:59 12/30/18 13:31 Heparin Sodium (Porcine) (Heparin 5000 units/ml) 5,000 units EVERY 12 HOURS SUBQ 12/15/18 21:00 01/14/19 08:59 12/30/18 09:35 Hydromorphone HCl (Dilaudid) 4 mg Q4H PRN IVP Severe Breakthrough Pain 12/29/18 18:00 01/01/19 09:59 12/30/18 13:32 Levetiracetam (Keppra) 1,500 mg Q12HR ORAL 12/29/18 09:00 01/18/19 08:59 12/30/18 09:34 Levofloxacin (Levaquin) 500 mg Q24H ORAL 12/30/18 13:00 01/06/19 12:59 12/30/18 13:31 Losartan Potassium (Cozaar) 25 mg DAILY ORAL 12/29/18 13:45 01/28/19 13:44 12/30/18 09:33 Methadone HCl (Methadone HCl) 10 mg EVERY 8 HOURS ORAL 12/29/18 22:00 01/05/19 21:59 12/30/18 13:31 Nitroglycerin (Ntg) 0.4 mg Q5M X 3 DOSES PRN SL Prn Chest Pain 12/15/18 14:45 01/13/19 23:44 Ondansetron HCl (Zofran) 4 mg Q6H PRN IVP Nausea & Vomiting 12/15/18 14:55 01/14/19 14:54 12/17/18 10:19 Polyethylene Glycol (Miralax) 17 gm HSPRN PRN ORAL Constipation 12/15/18 14:55 01/14/19 14:54 Pregabalin (Lyrica) 100 mg THREE TIMES A DAY ORAL 12/26/18 09:00 01/19/19 22:59 12/30/18 13:32 Promethazine HCl/ Codeine (Phenergan with Codeine) 5 ml Q4H PRN ORAL For Cough 12/28/18 12:00 01/27/19 11:59 12/30/18 03:46 Trazodone HCl (Desyrel) 100 mg BEDTIME ORAL 12/15/18 21:00 01/14/19 20:59 12/29/18 21:33 Elliot Chauhan MD Dec 30, 2018 14:02
[2018-12-30] MEDS: NS IV SCH (15:02)
[2018-12-30] MEDS: DAPTOMYCIN IV SCH (15:02)
[2018-12-30 16:00] VITALS: BP 120/75
--- NOTE | 2018-12-30 16:43 | NUR ---
NURSE NOTES: Dressing on the lower extremities and abdomen changed; patient tolerated well.
--- NOTE | 2018-12-30 17:00 | Progress Note ---
DATE: 12/30/2018 SUBJECTIVE: This is a 53-year-old male patient who is status post rule out CVA, but he still has high levels of anxiety, depression, and irritability. That is why, daily psychiatric consultation requested. MENTAL STATUS EXAMINATION: This is a 53-year-old male. Appearance is disheveled. Attitude, irritable and agitated. Affect, guarded and restricted. Intellect poor. Mood depressed and anxious. Motor activity, psychomotor agitation. Insight and judgment is poor. DIAGNOSIS: Major depressive disorder, mild, recurrent, without psychotic features. PLAN: Treat him with Cymbalta 30 mg daily, Neurontin 600 mg three times a day, trazodone 100 mg at bedtime. Provide him with 20 minutes of cognitive behavioral therapy to help him identify his automatic negative thoughts, help him convert his negative thoughts to more positive thoughts to reduce depression, anxiety, and mood lability and help him have a more adaptive behavioral pattern. Chart reviewed. Discussed with staff. Seen and assessed at bedside. Laney Mcghee M.D. DR: GEENA JOB#: [id number] CC:
--- NOTE | 2018-12-30 19:45 | NUR ---
HAND-OFF: Report given to Cristal Domínguez.
[2018-12-30 20:00] VITALS: BP 107/64
[2018-12-30] MEDS: Atorvastatin 80mg tab ORAL SCH (22:12)
[2018-12-30] MEDS: Dyna-Hex 2% Top Sol 2oz TOPIC SCH (22:13)
[2018-12-30] MEDS: TraZODone 100mg tab ORAL SCH (22:13)
--- NOTE | 2018-12-30 23:52 | Cardiology Progress Note ---
Assessment/Plan Assessment/Plan 1. Morbid obesity with panniculitis, normal LV systolic and diastolic function per recent echo, clear for "removal of pannus". 2. Chronic venous insufficiency, may have to replace amlodipine with ARBs in the view of leg edema. 3. HTN, well controlled, continue losartan. 4. COPD 5. Seizure D/O 6. Hypomagnesemia likely due to diuresis, supply with Mg sulfate 1-2 grams. Subjective Subjective No cardiac events is reported. Objective Last 24 Hour Vital Signs Date Time Temp Pulse Resp B/P (MAP) Pulse Ox O2 Delivery O2 Flow Rate FiO2 12/30/18 20:00 97.8 87 20 107/64 (78) 94 12/30/18 18:04 97.6 12/30/18 16:00 97.6 66 20 120/75 (90) 96 12/30/18 12:00 98.0 90 20 116/69 (85) 95 12/30/18 09:33 138/81 12/30/18 09:00 Room Air 12/30/18 08:00 98.4 91 18 138/81 (100) 94 12/30/18 04:00 98.9 93 18 113/74 (87) 95 12/30/18 00:00 98.9 88 16 105/59 (74) 95 Intake and Output 12/29/18 12/30/18 19:00 07:00 Intake Total 1440 ml 1200 ml Balance 1440 ml 1200 ml Intake Oral 1440 ml 1200 ml # Voids 4 6 2D Echo: Normal LV systolic function, RVSP 34 mmHg, RAP elevated at 15 mmHg Laboratory Tests Test 12/30/18 05:38 White Blood Count 5.5 K/UL (4.8-10.8) Red Blood Count 4.04 M/UL (4.70-6.10) L Hemoglobin 12.2 G/DL (14.2-18.0) L Hematocrit 36.7 % (42.0-52.0) L Mean Corpuscular Volume 91 FL (80-99) Mean Corpuscular Hemoglobin 30.1 PG (27.0-31.0) Mean Corpuscular Hemoglobin Concent 33.2 G/DL (32.0-36.0) Red Cell Distribution Width 13.2 % (11.6-14.8) Platelet Count 216 K/UL (150-450) Mean Platelet Volume 5.3 FL (6.5-10.1) L Neutrophils (%) (Auto) 51.4 % (45.0-75.0) Lymphocytes (%) (Auto) 34.0 % (20.0-45.0) Monocytes (%) (Auto) 9.4 % (1.0-10.0) Eosinophils (%) (Auto) 4.5 % (0.0-3.0) H Basophils (%) (Auto) 0.8 % (0.0-2.0) Sodium Level 137 MMOL/L (136-145) Potassium Level 3.9 MMOL/L (3.5-5.1) Chloride Level 99 MMOL/L (98-107) Carbon Dioxide Level 35 MMOL/L (21-32) H Anion Gap 3 mmol/L (5-15) L Blood Urea Nitrogen 19 mg/dL (7-18) H Creatinine 1.0 MG/DL (0.55-1.30) Estimat Glomerular Filtration Rate > 60 mL/min (>60) Glucose Level 89 MG/DL (74-106) Calcium Level 9.0 MG/DL (8.5-10.1) Phosphorus Level 3.9 MG/DL (2.5-4.9) Magnesium Level 1.7 MG/DL (1.8-2.4) L Total Bilirubin 0.5 MG/DL (0.2-1.0) Aspartate Amino Transf (AST/SGOT) 33 U/L (15-37) Alanine Aminotransferase (ALT/SGPT) 30 U/L (12-78) Alkaline Phosphatase 130 U/L (46-116) H Total Protein 6.6 G/DL (6.4-8.2) Albumin 2.6 G/DL (3.4-5.0) L Globulin 4.0 g/dL Albumin/Globulin Ratio 0.6 (1.0-2.7) L Objective HEENT: Atraumatic and normocephalic. Anicteric. Pupils are equal, round, and reactive to light and accommodation. NECK: JVP cannot be assessed due to obesity. No carotid bruit. CARDIOVASCULAR: Normal S1, S2. Regular rate and rhythm. No murmurs, gallops, or rubs. PMI is at fourth intercostal space at the midclavicular line. LUNGS: Clear to auscultation bilaterally. ABDOMEN: Distended due to pannus formation, cannot palpate hepatosplenomegaly. Positive bowel sounds. EXTREMITIES: No lower extremity edema, clubbing or cyanosis. Carlos Martins MD Dec 30, 2018 23:52
[2018-12-31] VITALS: BP 101/68
--- NOTE | 2018-12-31 01:39 | NUR ---
NURSE NOTES: Called Dr. Nicole to inform him that the pt claimed to have seizure and he hit his head on the wall. Small red lump noted at the bacl of his head. Waiting for Dr. Nicole's response. Charge Nurse Venita made aware.
[2018-12-31 05:50] LABS: BASOPHILS % (AUTO) 1.4 % (0.0-2.0); HEMATOCRIT 37.4 % (42.0-52.0); HEMOGLOBIN 12.1 G/DL (14.2-18.0); LYMPHOCYTES % (AUTO) 34.1 % (20.0-45.0); MEAN CORPUSCULAR VOLUME 92 FL (80-99); MONOCYTES % (AUTO) 9.5 % (1.0-10.0); PLATELET COUNT 213 K/UL (150-450); RED BLOOD COUNT 4.06 M/UL (4.70-6.10); RED CELL DISTRIBUTION WIDTH 13.5 % (11.6-14.8); WHITE BLOOD COUNT 5.2 K/UL (4.8-10.8)
[2018-12-31 06:09] LABS: ANION GAP 7 mmol/L (5-15); BLOOD UREA NITROGEN 20 mg/dL (7-18); CALCIUM 8.9 MG/DL (8.5-10.1); CARBON DIOXIDE 32 MMOL/L (21-32); CHLORIDE 100 MMOL/L (98-107); CREATININE 1.1 MG/DL (0.55-1.30); POTASSIUM 4.2 MMOL/L (3.5-5.1); SODIUM 139 MMOL/L (136-145)
--- NOTE | 2018-12-31 07:10 | NUR ---
HAND-OFF: Report given to MICAELA Daly.
--- NOTE | 2018-12-31 07:15 | NUR ---
NURSE NOTES: Endorsed to MICAELA Daly to follow up with Dr. Nicole about the seizure that the pt had experienced and accidentally bumped his posterior head on the wall. He is on stable condition. AAOX4. Able to make needs known. No c/o posterior head pain.
--- NOTE | 2018-12-31 07:44 | NUR ---
NURSE NOTES: Patient alert x4, on room air, no sign of distress and shortness of breath; no sign of chest pain; PICC line on the Right Upper arm, dressing dry and clean; patient stated that he had seizures last night while in the rest room and pumped his posterior head; PM nurse Lolis called MD Nicole and left a message, I will follow up on that; dressing on the lower extremities dry and intact. Call light within reach; will keep monitoring.
[2018-12-31 08:00] VITALS: BP 105/84
[2018-12-31] MEDS: Losartan 25mg tab ORAL SCH (09:00)
--- NOTE | 2018-12-31 09:08 | Infectious Diseases Prog Note ---
Assessment/Plan Assessment/Plan B/l Leg cellulitis and panniculitis- in the setting of chronic venous stasis L side weakness/spasticity- thought be 2ry to seizures- r/O CVA- no active infectious process at present (pt afebrile- doubt meningitis at this moment) Afebrile No leukocytosis -CXR: No acute findings CVA HTN bipolar disorder w/ psychotic features tobacco abuse anxiety disorder chronic pain CHF seizure disorder COPD morbid obesity Dm2 HTN SNF resident Plan: IV Dapto d# 7 ( pt Cr increased 30% will avoid Vanco) Would treat for 14 day ( End date 01/07/19) 12/25 sp Bactrim #4/14 and add IV Ancef #3/14 for cellulitis -Monitor CBC/CMP, temperatures -neuro f/u- plan for CT head, include neck as lump in back of neck; however pt did not fit on CT scan machine due to weight -aspiration precautions -wound care per hospital protocol Subjective Allergies: Coded Allergies: ASPIRIN (Verified Allergy, Unknown, 07/14/18) KETOROLAC (Verified Allergy, Unknown, 07/14/18) PENICILLINS (Verified Allergy, Unknown, 12/23/18) tolerated Ancef on 08/2018 Subjective Pain controlled Afebrile No leukocytosis Objective Vital Signs Last 24 Hour Vital Signs Date Time Temp Pulse Resp B/P (MAP) Pulse Ox O2 Delivery O2 Flow Rate FiO2 12/31/18 08:00 98.4 101 20 105/84 (91) 94 12/31/18 00:00 91 18 101/68 (79) 90 12/30/18 21:00 Room Air 12/30/18 20:00 97.8 87 20 107/64 (78) 94 12/30/18 18:04 97.6 12/30/18 16:00 97.6 66 20 120/75 (90) 96 12/30/18 12:00 98.0 90 20 116/69 (85) 95 12/30/18 09:33 138/81 Height (Feet): 5 Height (Inches): 10.00 Weight (Pounds): 494 Objective GEN: NAD HEENT: NCAT, MMM Respiratory/Chest: CTAB, No W Cardiovascular: RRR, S1, S2 Abdomen: Soft, ND Ext. LE in bandages B/L Microbiology Date/Time Source Procedure Growth Status 12/30/18 12:20 Sputum Gram Stain - Final Resulted 12/30/18 12:20 Sputum Sputum Culture Pending Resulted Laboratory Tests Test 12/31/18 05:17 White Blood Count 5.2 K/UL (4.8-10.8) Red Blood Count 4.06 M/UL (4.70-6.10) L Hemoglobin 12.1 G/DL (14.2-18.0) L Hematocrit 37.4 % (42.0-52.0) L Mean Corpuscular Volume 92 FL (80-99) Mean Corpuscular Hemoglobin 29.9 PG (27.0-31.0) Mean Corpuscular Hemoglobin Concent 32.5 G/DL (32.0-36.0) Red Cell Distribution Width 13.5 % (11.6-14.8) Platelet Count 213 K/UL (150-450) Mean Platelet Volume 5.3 FL (6.5-10.1) L Neutrophils (%) (Auto) 51.0 % (45.0-75.0) Lymphocytes (%) (Auto) 34.1 % (20.0-45.0) Monocytes (%) (Auto) 9.5 % (1.0-10.0) Eosinophils (%) (Auto) 4.0 % (0.0-3.0) H Basophils (%) (Auto) 1.4 % (0.0-2.0) Sodium Level 139 MMOL/L (136-145) Potassium Level 4.2 MMOL/L (3.5-5.1) Chloride Level 100 MMOL/L (98-107) Carbon Dioxide Level 32 MMOL/L (21-32) Anion Gap 7 mmol/L (5-15) Blood Urea Nitrogen 20 mg/dL (7-18) H Creatinine 1.1 MG/DL (0.55-1.30) Estimat Glomerular Filtration Rate > 60 mL/min (>60) Glucose Level 123 MG/DL (74-106) H Calcium Level 8.9 MG/DL (8.5-10.1) Current Medications Medications (Trade) Dose Ordered Sig/Luis Route PRN Reason Start Time Stop Time Status Last Admin Dose Admin Acetaminophen (Tylenol) 650 mg Q4H PRN ORAL fever 12/15/18 14:54 01/14/19 14:53 Albuterol/ Ipratropium (Albuterol/ Ipratropium) 3 ml Q4H PRN HHN Shortness of breath 12/30/18 19:00 01/04/19 18:59 Atorvastatin Calcium (Lipitor) 80 mg BEDTIME ORAL 12/15/18 21:00 01/14/19 20:59 12/30/18 22:12 Chlorhexidine Gluconate (Ruby-Hex 2%) 1 applic DAILY@2000 TOPIC 12/22/18 20:00 01/21/19 19:59 12/30/18 22:13 Clonidine HCl (Catapres Tab) 0.1 mg Q4H PRN ORAL For High Blood Pressure 12/15/18 14:56 01/14/19 14:55 Clopidogrel Bisulfate (Plavix) 75 mg DAILY ORAL 12/16/18 09:00 01/14/19 08:59 12/30/18 09:33 Daptomycin 900 mg/ Sodium Chloride 55 ml @ 110 mls/hr Q24H IV 12/25/18 14:00 01/01/19 13:59 12/30/18 15:02 Dextrose (Dextrose 50%) 25 ml Q30M PRN IV Hypoglycemia 12/15/18 15:15 01/13/19 23:44 Dextrose (Dextrose 50%) 50 ml Q30M PRN IV Hypoglycemia 12/15/18 15:15 01/13/19 23:44 Duloxetine HCl (Cymbalta) 30 mg DAILY ORAL 12/16/18 09:00 01/14/19 08:59 12/30/18 09:33 Furosemide (Lasix) 20 mg Q6HR IV 12/22/18 00:00 01/21/19 00:00 12/31/18 05:54 Gabapentin (Neurontin) 600 mg THREE TIMES A DAY ORAL 12/15/18 18:00 01/14/19 08:59 12/30/18 17:33 Heparin Sodium (Porcine) (Heparin 5000 units/ml) 5,000 units EVERY 12 HOURS SUBQ 12/15/18 21:00 01/14/19 08:59 12/30/18 22:11 Hydromorphone HCl (Dilaudid) 4 mg Q4H PRN IVP Severe Breakthrough Pain 12/29/18 18:00 01/01/19 09:59 12/31/18 06:38 Levetiracetam (Keppra) 1,500 mg Q12HR ORAL 12/29/18 09:00 01/18/19 08:59 12/30/18 22:10 Levofloxacin (Levaquin) 500 mg Q24H ORAL 12/30/18 13:00 01/06/19 12:59 12/30/18 13:31 Losartan Potassium (Cozaar) 25 mg DAILY ORAL 12/29/18 13:45 01/28/19 13:44 12/30/18 09:33 Methadone HCl (Methadone HCl) 10 mg EVERY 8 HOURS ORAL 12/29/18 22:00 01/05/19 21:59 12/31/18 05:54 Nitroglycerin (Ntg) 0.4 mg Q5M X 3 DOSES PRN SL Prn Chest Pain 12/15/18 14:45 01/13/19 23:44 Ondansetron HCl (Zofran) 4 mg Q6H PRN IVP Nausea & Vomiting 12/15/18 14:55 01/14/19 14:54 12/17/18 10:19 Polyethylene Glycol (Miralax) 17 gm HSPRN PRN ORAL Constipation 12/15/18 14:55 01/14/19 14:54 Pregabalin (Lyrica) 100 mg THREE TIMES A DAY ORAL 12/26/18 09:00 01/19/19 22:59 12/30/18 17:34 Promethazine HCl/ Codeine (Phenergan with Codeine) 5 ml Q4H PRN ORAL For Cough 12/28/18 12:00 01/27/19 11:59 12/30/18 03:46 Trazodone HCl (Desyrel) 100 mg BEDTIME ORAL 12/15/18 21:00 01/14/19 20:59 12/30/18 22:13 Elliot Chauhan MD Dec 31, 2018 09:08
[2018-12-31] MEDS: DULoxetine 30mg cap ORAL SCH (09:10)
[2018-12-31] MEDS: Lyrica 50mg cap ORAL SCH ×3 (09:11→17:13)
[2018-12-31] MEDS: Heparin 5000 units/ml inj SUBQ SCH ×2 (09:13→22:25)
[2018-12-31] MEDS: Albuterol/Ipratropium 3ml neb HHN PRN ×2 (10:08→14:13)
--- NOTE | 2018-12-31 10:26 | Nephrology Progress Note ---
Assessment/Plan Problem List: (1) Hyponatremia (2) Morbid obesity (3) COPD (chronic obstructive pulmonary disease) Plan Mag IV today Low Na resolved cont per consultants Subjective ROS Limited/Unobtainable: No Constitutional: Reports: malaise Objective Objective Last 24 Hour Vital Signs Date Time Temp Pulse Resp B/P (MAP) Pulse Ox O2 Delivery O2 Flow Rate FiO2 12/31/18 10:19 86 18 92 Room Air 21 12/31/18 10:10 21 12/31/18 10:10 88 16 92 Room Air 21 12/31/18 09:00 Room Air 12/31/18 08:00 98.4 101 20 105/84 (91) 94 12/31/18 00:00 91 18 101/68 (79) 90 12/30/18 21:00 Room Air 12/30/18 20:00 97.8 87 20 107/64 (78) 94 12/30/18 18:04 97.6 12/30/18 16:00 97.6 66 20 120/75 (90) 96 12/30/18 12:00 98.0 90 20 116/69 (85) 95 Intake and Output 12/30/18 12/31/18 19:00 07:00 Intake Total 1200 ml 720 ml Balance 1200 ml 720 ml Intake Oral 1200 ml 720 ml # Voids 4 # Bowel Movements 1 Laboratory Tests 12/31/18 05:17: White Blood Count 5.2, Red Blood Count 4.06L, Hemoglobin 12.1L, Hematocrit 37.4L , Mean Corpuscular Volume 92, Mean Corpuscular Hemoglobin 29.9, Mean Corpuscular Hemoglobin Concent 32.5, Red Cell Distribution Width 13.5, Platelet Count 213, Mean Platelet Volume 5.3L, Neutrophils (%) (Auto) 51.0, Lymphocytes ( %) (Auto) 34.1, Monocytes (%) (Auto) 9.5, Eosinophils (%) (Auto) 4.0H, Basophils (%) (Auto) 1.4, Sodium Level 139, Potassium Level 4.2, Chloride Level 100, Carbon Dioxide Level 32, Anion Gap 7, Blood Urea Nitrogen 20H, Creatinine 1.1, Estimat Glomerular Filtration Rate > 60, Glucose Level 123H, Calcium Level 8.9 Height (Feet): 5 Height (Inches): 10.00 Weight (Pounds): 494 General Appearance: no apparent distress Objective no change Devante Taylor MD Dec 31, 2018 10:26
[2018-12-31 12:00] VITALS: BP 110/56
[2018-12-31] MEDS: Levofloxacin 500mg tab ORAL SCH (12:14)
--- NOTE | 2018-12-31 13:02 | Pulmonology Progress Note ---
Assessment/Plan Problems: (1) Morbid obesity (2) Peripheral edema (3) Cellulitis (4) Seizures (5) Cerebrovascular accident (6) Left-sided weakness (7) COPD (chronic obstructive pulmonary disease) (8) Right heart failure (9) Lumbar spondylosis (10) ADALBERTO (obstructive sleep apnea) Assessment/Plan sputum pending coughing up dark/ brown phlegm. add levofloxacin all meds /notes reviewed pt/ot increase dialudid to 4 mg and add Methadone 10Q8 respiratory treatment titrate fio2 to sat of 92% dvt prophylaxis Subjective ROS Limited/Unobtainable: No Constitutional: Reports: no symptoms HEENT: Repors: no symptoms Respiratory: Reports: no symptoms Allergies: Coded Allergies: ASPIRIN (Verified Allergy, Unknown, 07/14/18) KETOROLAC (Verified Allergy, Unknown, 07/14/18) PENICILLINS (Verified Allergy, Unknown, 12/23/18) tolerated Ancef on 08/2018 Objective Last 24 Hour Vital Signs Date Time Temp Pulse Resp B/P (MAP) Pulse Ox O2 Delivery O2 Flow Rate FiO2 12/31/18 12:00 98.1 87 18 110/56 (74) 93 12/31/18 11:22 98.4 12/31/18 10:19 86 18 92 Room Air 21 12/31/18 10:10 21 12/31/18 10:10 88 16 92 Room Air 21 12/31/18 09:00 Room Air 12/31/18 08:00 98.4 101 20 105/84 (91) 94 12/31/18 00:00 91 18 101/68 (79) 90 12/30/18 21:00 Room Air 12/30/18 20:00 97.8 87 20 107/64 (78) 94 12/30/18 16:00 97.6 66 20 120/75 (90) 96 Intake and Output 12/30/18 12/31/18 19:00 07:00 Intake Total 1200 ml 720 ml Balance 1200 ml 720 ml Intake Oral 1200 ml 720 ml # Voids 4 # Bowel Movements 1 Objective HEENT: normocephalic, atraumatic Respiratory/Chest: chest wall non-tender, lungs clear Cardiovascular: normal peripheral pulses, normal rate Abdomen: normal bowel sounds, no organomegaly, massive fat on abdomen Extremities: no cyanosis Skin: no lesions Microbiology Date/Time Source Procedure Growth Status 12/30/18 12:20 Sputum Gram Stain - Final Resulted 12/30/18 12:20 Sputum Sputum Culture Pending Resulted Laboratory Tests 12/31/18 05:17: White Blood Count 5.2, Red Blood Count 4.06L, Hemoglobin 12.1L, Hematocrit 37.4L , Mean Corpuscular Volume 92, Mean Corpuscular Hemoglobin 29.9, Mean Corpuscular Hemoglobin Concent 32.5, Red Cell Distribution Width 13.5, Platelet Count 213, Mean Platelet Volume 5.3L, Neutrophils (%) (Auto) 51.0, Lymphocytes ( %) (Auto) 34.1, Monocytes (%) (Auto) 9.5, Eosinophils (%) (Auto) 4.0H, Basophils (%) (Auto) 1.4, Sodium Level 139, Potassium Level 4.2, Chloride Level 100, Carbon Dioxide Level 32, Anion Gap 7, Blood Urea Nitrogen 20H, Creatinine 1.1, Estimat Glomerular Filtration Rate > 60, Glucose Level 123H, Calcium Level 8.9 Current Medications Medications (Trade) Dose Ordered Sig/Luis Route PRN Reason Start Time Stop Time Status Last Admin Dose Admin Acetaminophen (Tylenol) 650 mg Q4H PRN ORAL fever 12/15/18 14:54 01/14/19 14:53 Albuterol/ Ipratropium (Albuterol/ Ipratropium) 3 ml Q4H PRN HHN Shortness of breath 12/30/18 19:00 01/04/19 18:59 12/31/18 10:08 Atorvastatin Calcium (Lipitor) 80 mg BEDTIME ORAL 12/15/18 21:00 01/14/19 20:59 12/30/18 22:12 Chlorhexidine Gluconate (Ruby-Hex 2%) 1 applic DAILY@2000 TOPIC 12/22/18 20:00 01/21/19 19:59 12/30/18 22:13 Clonidine HCl (Catapres Tab) 0.1 mg Q4H PRN ORAL For High Blood Pressure 12/15/18 14:56 01/14/19 14:55 Clopidogrel Bisulfate (Plavix) 75 mg DAILY ORAL 12/16/18 09:00 01/14/19 08:59 12/31/18 09:10 Daptomycin 900 mg/ Sodium Chloride 55 ml @ 110 mls/hr Q24H IV 12/25/18 14:00 01/01/19 13:59 12/30/18 15:02 Dextrose (Dextrose 50%) 25 ml Q30M PRN IV Hypoglycemia 12/15/18 15:15 01/13/19 23:44 Dextrose (Dextrose 50%) 50 ml Q30M PRN IV Hypoglycemia 12/15/18 15:15 01/13/19 23:44 Duloxetine HCl (Cymbalta) 30 mg DAILY ORAL 12/16/18 09:00 01/14/19 08:59 12/31/18 09:10 Furosemide (Lasix) 20 mg Q6HR IV 12/22/18 00:00 01/21/19 00:00 12/31/18 12:14 Gabapentin (Neurontin) 600 mg THREE TIMES A DAY ORAL 12/15/18 18:00 01/14/19 08:59 12/31/18 12:14 Heparin Sodium (Porcine) (Heparin 5000 units/ml) 5,000 units EVERY 12 HOURS SUBQ 12/15/18 21:00 01/14/19 08:59 12/31/18 09:13 Hydromorphone HCl (Dilaudid) 4 mg Q4H PRN IVP Severe Breakthrough Pain 12/29/18 18:00 01/01/19 09:59 12/31/18 10:52 Levetiracetam (Keppra) 1,500 mg Q12HR ORAL 12/29/18 09:00 01/18/19 08:59 12/31/18 09:11 Levofloxacin (Levaquin) 500 mg Q24H ORAL 12/30/18 13:00 01/06/19 12:59 12/31/18 12:14 Losartan Potassium (Cozaar) 25 mg DAILY ORAL 12/29/18 13:45 01/28/19 13:44 12/30/18 09:33 Methadone HCl (Methadone HCl) 10 mg EVERY 8 HOURS ORAL 12/29/18 22:00 01/05/19 21:59 12/31/18 05:54 Nitroglycerin (Ntg) 0.4 mg Q5M X 3 DOSES PRN SL Prn Chest Pain 12/15/18 14:45 01/13/19 23:44 Ondansetron HCl (Zofran) 4 mg Q6H PRN IVP Nausea & Vomiting 12/15/18 14:55 01/14/19 14:54 12/17/18 10:19 Polyethylene Glycol (Miralax) 17 gm HSPRN PRN ORAL Constipation 12/15/18 14:55 01/14/19 14:54 Pregabalin (Lyrica) 100 mg THREE TIMES A DAY ORAL 12/26/18 09:00 01/19/19 22:59 12/31/18 12:14 Promethazine HCl/ Codeine (Phenergan with Codeine) 5 ml Q4H PRN ORAL For Cough 12/28/18 12:00 01/27/19 11:59 12/30/18 03:46 Trazodone HCl (Desyrel) 100 mg BEDTIME ORAL 12/15/18 21:00 01/14/19 20:59 12/30/18 22:13 Bill Dixon MD Dec 31, 2018 13:02
--- NOTE | 2018-12-31 13:37 | General Progress Note ---
Assessment/Plan Problem List: (1) Abdominal pannus ICD Codes: E65 - Localized adiposity SNOMED: 6106144299235 (2) Peripheral edema ICD Codes: R60.9 - Edema, unspecified SNOMED: 668191536 (3) Abdominal wall cellulitis ICD Codes: L03.311 - Cellulitis of abdominal wall SNOMED: 66522812 (4) Leg pain ICD Codes: M79.606 - Pain in leg, unspecified SNOMED: 59186219 (5) COPD (chronic obstructive pulmonary disease) ICD Codes: J44.9 - Chronic obstructive pulmonary disease, unspecified SNOMED: 07851585 (6) Seizures ICD Codes: R56.9 - Unspecified convulsions SNOMED: 44133554 (7) Morbid obesity ICD Codes: E66.01 - Morbid (severe) obesity due to excess calories SNOMED: 027905275 (8) Cerebrovascular accident ICD Codes: I63.9 - Cerebral infarction, unspecified SNOMED: 276779941 (9) Left-sided weakness ICD Codes: R53.1 - Weakness SNOMED: 333553912 Status: stable, progressing Assessment/Plan: pt diet neuro f/u wound care abx pain control cbc bmp am dc to snf Subjective Constitutional: Reports: weakness Allergies: Coded Allergies: ASPIRIN (Verified Allergy, Unknown, 07/14/18) KETOROLAC (Verified Allergy, Unknown, 07/14/18) PENICILLINS (Verified Allergy, Unknown, 12/23/18) tolerated Ancef on 08/2018 All Systems: reviewed and negative except above Subjective sleepy calm Objective Last 24 Hour Vital Signs Date Time Temp Pulse Resp B/P (MAP) Pulse Ox O2 Delivery O2 Flow Rate FiO2 12/31/18 12:00 98.1 87 18 110/56 (74) 93 12/31/18 11:22 98.4 12/31/18 10:19 86 18 92 Room Air 21 12/31/18 10:10 21 12/31/18 10:10 88 16 92 Room Air 21 12/31/18 09:00 Room Air 12/31/18 08:00 98.4 101 20 105/84 (91) 94 12/31/18 00:00 91 18 101/68 (79) 90 12/30/18 21:00 Room Air 12/30/18 20:00 97.8 87 20 107/64 (78) 94 12/30/18 16:00 97.6 66 20 120/75 (90) 96 Intake and Output 12/30/18 12/31/18 19:00 07:00 Intake Total 1200 ml 720 ml Balance 1200 ml 720 ml Intake Oral 1200 ml 720 ml # Voids 4 # Bowel Movements 1 Laboratory Tests 12/31/18 05:17: White Blood Count 5.2, Red Blood Count 4.06L, Hemoglobin 12.1L, Hematocrit 37.4L , Mean Corpuscular Volume 92, Mean Corpuscular Hemoglobin 29.9, Mean Corpuscular Hemoglobin Concent 32.5, Red Cell Distribution Width 13.5, Platelet Count 213, Mean Platelet Volume 5.3L, Neutrophils (%) (Auto) 51.0, Lymphocytes ( %) (Auto) 34.1, Monocytes (%) (Auto) 9.5, Eosinophils (%) (Auto) 4.0H, Basophils (%) (Auto) 1.4, Sodium Level 139, Potassium Level 4.2, Chloride Level 100, Carbon Dioxide Level 32, Anion Gap 7, Blood Urea Nitrogen 20H, Creatinine 1.1, Estimat Glomerular Filtration Rate > 60, Glucose Level 123H, Calcium Level 8.9 Height (Feet): 5 Height (Inches): 10.00 Weight (Pounds): 494 General Appearance: lethargic EENT: normal ENT inspection Neck: normal alignment Cardiovascular: normal peripheral pulses, normal rate, regular rhythm Respiratory/Chest: chest wall non-tender, lungs clear, normal breath sounds Abdomen: normal bowel sounds, distended Extremities: normal inspection Edema: 1+ Arm (L), 1+ Arm (R), 1+ Leg (L), 1+ Leg (R), 1+ Pedal (L), 1+ Pedal ( R), 1+ Generalized Edema: trace edema Neurologic: responsive, motor weakness Skin: normal pigmentation, warm/dry Ernesto Nicole DO Dec 31, 2018 13:37
--- NOTE | 2018-12-31 14:07 | NUR ---
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 LEFT SIDED WEAKNESS VS: BP 110/56, P 101, T 98.4, RR 20, SpO2 93 RBC 4.06, H&H 12.1/37.4, BUN 20, IS: GABAPENTIN 600mg LASIX 20mg IV LYRICA 100mg LEVAQUIN 500mg MAGNESIUM SULFATE 100ml IVPB DILAUDID 4mg IVP ALBUTEROL 3ml HHN KEPPRA 1,500 PLAVIX 75mg CYMBALTA 30mg METHADONE 10mg PT IS WAITING FOR BED AT [facility] MED/SURG STATUS
[2018-12-31] MEDS: DAPTOMYCIN IV SCH (15:05)
[2018-12-31] MEDS: NS IV SCH (15:05)
[2018-12-31] MEDS: Promethazine/Codeine 5ml UD ORAL PRN (15:16)
--- NOTE | 2018-12-31 16:18 | NUR ---
NURSE NOTES: I received order from MD Chauhan to put wound care nurse consult; WCN assess patients bilateral lower extremities and recommended wound care dressing; wound care given WCN and nurse. Patient asked tape to be applied once the dressing are done, however the wound care nurse recommended that it gonna cut circulation. Patient is non compliant and charge nurseTiarra is aware.
--- NOTE | 2018-12-31 19:37 | NUR ---
HAND-OFF: Report given to MICAELA Butler.
[2018-12-31 20:00] VITALS: BP 112/60
--- NOTE | 2018-12-31 20:10 | NUR ---
NURSE NOTES: Patient in bed, awake, alert and verbally responsive. Able to make needs known. Respiration is even and unlabored. Complained of pain 9/10, was given PRN pain medication by previous nurse. Dressings noted on lower extremities and abdomen. Picc line noted on the right upper arm. Call light is at bedside. Will continue plan of care.
--- NOTE | 2018-12-31 20:30 | Progress Note ---
DATE: 12/31/2018 SUBJECTIVE: This is a 53-year-old male patient, status post CVA. The patient still has anxiety and depression, worsened by stress of his medical illness. That is why his attending has requested daily psychiatric consultation. MENTAL STATUS EXAMINATION: This is a 53-year-old male. Appearance is disheveled. Attitude, irritable and agitated. Affect, guarded and restricted. Intellect poor. Mood, depressed and anxious. Motor activity, psychomotor agitation. Attention span is poor. Orientation x2. Speech is pressured. Thought process, disorganized and illogical. Insight and judgment are poor. DIAGNOSIS: Major depressive disorder, mild, recurrent. . PLAN: Treat him with Cymbalta 30 mg daily as well as and also treat him with Neurontin 600 mg three times a day, trazodone 100 mg at bedtime. Twenty minutes of cognitive behavioral therapy to help him identify his automatic negative thoughts and help him convert his negative thoughts to more positive thoughts. Laney Mcghee M.D. DR: ENRIQUE JOB#: [id number] CC:
[2018-12-31] MEDS: TraZODone 100mg tab ORAL SCH (22:16)
[2018-12-31] MEDS: Atorvastatin 80mg tab ORAL SCH (22:17)
[2018-12-31] MEDS: Dyna-Hex 2% Top Sol 2oz TOPIC SCH (22:20)
--- NOTE | 2018-12-31 22:31 | Cardiology Progress Note ---
Assessment/Plan Assessment/Plan 1. Morbid obesity with panniculitis, normal LV systolic and diastolic function per recent echo, clear for "removal of pannus". 2. Chronic venous insufficiency, may have to replace amlodipine with ARBs in the view of leg edema. 3. HTN, well controlled, continue losartan. 4. COPD 5. Seizure D/O 6. Hypomagnesemia keep Mg level >2.0. Subjective Subjective Denies chest pain or SOB. Objective Last 24 Hour Vital Signs Date Time Temp Pulse Resp B/P (MAP) Pulse Ox O2 Delivery O2 Flow Rate FiO2 12/31/18 15:35 98.1 12/31/18 14:18 84 18 92 Room Air 21 12/31/18 14:11 67 18 92 Room Air 21 12/31/18 14:11 21 12/31/18 12:00 98.1 87 18 110/56 (74) 93 12/31/18 10:19 86 18 92 Room Air 21 12/31/18 10:10 21 12/31/18 10:10 88 16 92 Room Air 21 12/31/18 09:00 Room Air 12/31/18 08:00 98.4 101 20 105/84 (91) 94 12/31/18 00:00 91 18 101/68 (79) 90 Intake and Output 12/30/18 12/31/18 18:59 06:59 Intake Total 1200 ml 720 ml Balance 1200 ml 720 ml Intake Oral 1200 ml 720 ml # Voids 4 # Bowel Movements 1 2D Echo: Normal LV systolic function, RVSP 34 mmHg, RAP elevated at 15 mmHg Laboratory Tests Test 12/31/18 05:17 White Blood Count 5.2 K/UL (4.8-10.8) Red Blood Count 4.06 M/UL (4.70-6.10) L Hemoglobin 12.1 G/DL (14.2-18.0) L Hematocrit 37.4 % (42.0-52.0) L Mean Corpuscular Volume 92 FL (80-99) Mean Corpuscular Hemoglobin 29.9 PG (27.0-31.0) Mean Corpuscular Hemoglobin Concent 32.5 G/DL (32.0-36.0) Red Cell Distribution Width 13.5 % (11.6-14.8) Platelet Count 213 K/UL (150-450) Mean Platelet Volume 5.3 FL (6.5-10.1) L Neutrophils (%) (Auto) 51.0 % (45.0-75.0) Lymphocytes (%) (Auto) 34.1 % (20.0-45.0) Monocytes (%) (Auto) 9.5 % (1.0-10.0) Eosinophils (%) (Auto) 4.0 % (0.0-3.0) H Basophils (%) (Auto) 1.4 % (0.0-2.0) Sodium Level 139 MMOL/L (136-145) Potassium Level 4.2 MMOL/L (3.5-5.1) Chloride Level 100 MMOL/L (98-107) Carbon Dioxide Level 32 MMOL/L (21-32) Anion Gap 7 mmol/L (5-15) Blood Urea Nitrogen 20 mg/dL (7-18) H Creatinine 1.1 MG/DL (0.55-1.30) Estimat Glomerular Filtration Rate > 60 mL/min (>60) Glucose Level 123 MG/DL (74-106) H Calcium Level 8.9 MG/DL (8.5-10.1) Microbiology Date/Time Source Procedure Growth Status 12/30/18 12:20 Sputum Gram Stain - Final Resulted 12/30/18 12:20 Sputum Sputum Culture Pending Resulted Objective HEENT: Atraumatic and normocephalic. Anicteric. Pupils are equal, round, and reactive to light and accommodation. NECK: JVP cannot be assessed due to obesity. No carotid bruit. CARDIOVASCULAR: Normal S1, S2. Regular rate and rhythm. No murmurs, gallops, or rubs. PMI is at fourth intercostal space at the midclavicular line. LUNGS: Clear to auscultation bilaterally. ABDOMEN: Distended due to pannus formation, cannot palpate hepatosplenomegaly. Positive bowel sounds. EXTREMITIES: No lower extremity edema, clubbing or cyanosis. Carlos Martins MD Dec 31, 2018 22:31
--- NOTE | 2018-12-31 23:20 | NUR ---
NURSE NOTES: Patient was given PRN pain medication as ordered. Will continue plan of care.
--- NOTE | 2018-12-31 23:52 | Neurology Progress Note ---
Interim History Interim History ROS Limited/Unobtainable: No Complaints: Seizures/ Weakness Events: This visit was performed on December 31, [address] Amador Brewster Interim History Patient not reporting any further seizures but sleepier with increased facial weakness. Review of Systems All Systems: reviewed and negative except above Objective Physical Exam Last Vital Signs Date Time Temp Pulse Resp B/P (MAP) Pulse Ox O2 Delivery O2 Flow Rate FiO2 12/31/18 20:00 98.5 90 18 112/60 (77) 94 12/31/18 14:18 Room Air 21 Laboratory Tests Test 12/31/18 05:17 White Blood Count 5.2 K/UL (4.8-10.8) Red Blood Count 4.06 M/UL (4.70-6.10) L Hemoglobin 12.1 G/DL (14.2-18.0) L Hematocrit 37.4 % (42.0-52.0) L Mean Corpuscular Volume 92 FL (80-99) Mean Corpuscular Hemoglobin 29.9 PG (27.0-31.0) Mean Corpuscular Hemoglobin Concent 32.5 G/DL (32.0-36.0) Red Cell Distribution Width 13.5 % (11.6-14.8) Platelet Count 213 K/UL (150-450) Mean Platelet Volume 5.3 FL (6.5-10.1) L Neutrophils (%) (Auto) 51.0 % (45.0-75.0) Lymphocytes (%) (Auto) 34.1 % (20.0-45.0) Monocytes (%) (Auto) 9.5 % (1.0-10.0) Eosinophils (%) (Auto) 4.0 % (0.0-3.0) H Basophils (%) (Auto) 1.4 % (0.0-2.0) Sodium Level 139 MMOL/L (136-145) Potassium Level 4.2 MMOL/L (3.5-5.1) Chloride Level 100 MMOL/L (98-107) Carbon Dioxide Level 32 MMOL/L (21-32) Anion Gap 7 mmol/L (5-15) Blood Urea Nitrogen 20 mg/dL (7-18) H Creatinine 1.1 MG/DL (0.55-1.30) Estimat Glomerular Filtration Rate > 60 mL/min (>60) Glucose Level 123 MG/DL (74-106) H Calcium Level 8.9 MG/DL (8.5-10.1) General: well developed, other - Morbidly obese Head: normocophalic Neck: no rigidity EENT: benign Neurologic Exam Mental Status: awake, alert, oriented x4, normal cognition, good mathematical skills, normal recent memory, normal remote memory, preserved visuospatial function Speech: normal speech, no dysarthia Language: normal language, no aphasia Cranial Nerve II: fundus normal, visual bonilla, no papilledema Cranial Nerves III, IV, : PERRLA, EOMI, pupils Cranial Nerve V: normal facial sensations, temporales function normal, masseters function normal, pterygoids function normal Cranial Nerve VII: normal facial expressions, other Cranial Nerve VIII: normal hearing, no nystagmus Cranial Nerve IX: normal palate elevation, gag response Cranial Nerve X: no voice hoarseness Cranial Nerve XI: SCM symmetric, trapezii function normal Cranial Nerve XII: tongue midline, no tongue atrophy/fasciculations Motor System: normal muscle tone, no involuntary movement, no muscle wasting Sensory: normal pinprick, normal light touch, normal position sense, normal graphesthesia Coordination: normal heel to villarreal bilaterally, negative Romberg test Deep Tendon Reflexes: 1+ bicep (L), 1+ bicep (R), 1+ tricep (L), 1+ tricep (R) , 1+ brachioradialis (L), 1+ brachioradialis (R), 1+ knee (L), 1+ knee (R), 1+ ankle (L), 1+ ankle (R) Reflexes: flexor plantar (L), flexor plantar (R); extensor plantar (L), extensor plantar (R) Stance: other - Broad based Gait: stable Objective Left arm, predominantly hand weakness at this time. Alert and oriented Mood stable, some mild aphasia today Ambulatory with cellulitis persisting on BLE He does not have proximal left arm weakness at this time or facial weakness, tongue deviated on exam -all stably improved but no changes in several days to motor exam overall . Impression/Recommendations Problems: (1) Seizures Assessment & Plan: Keppra 1500mg BID PO Maintain SBP<140 Q4 Hour Neuro Checks Ativan 2mg PRN for seizure activity CT Head w/o contrast when able to rule out CVA - also for consideration of MRI if CT negative. - low suspicion of CVA due to normotensive status without risk factors of elevated BP/ HgBA1c or thyroid dysfunction. Na 135-145 Continue pain management - Lyrica 100mg TID - Continue Gabapentin 600mg TID Intense PT recommended (2) Morbid obesity (3) COPD (chronic obstructive pulmonary disease) (4) Uncontrolled seizures (5) Left-sided weakness Assessment & Plan: No seizure activity captured on EEG but mild to moderate degree of encephalopathy seen. (6) Knee osteomyelits, right Status: stable, progressing Recommendations Q4 hour Neuro Obs - NO NIGHTTIME OBS if stable Prevent delirium Maintain regular sleep schedule and reduce nighttime activities such as observations (if unnecessary) EEG Pending, Keppra dose increased to 2g BID , some increased sleepiness expected . Will consider addition of oral Lamictal Vicky Taylor N.P. Dec 31, 2018 23:52
[2019-01-01] VITALS (7 sets, daily range): BP systolic 99–153; BP diastolic 56–92
--- NOTE | 2019-01-01 | NUR ---
NURSE NOTES: Patient was instructed not to have optifoam on lower extremities, insisted to have it on instead of actual orders. Patient is awake alert. Charge nurse made aware. Dressings were changed.
[2019-01-01] MEDS: Promethazine/Codeine 5ml UD ORAL PRN (01:34)
--- NOTE | 2019-01-01 03:10 | NUR ---
NURSE NOTES: Patient in bed, gave pain medication for general pain 04/06. call light is at bedside.
--- NOTE | 2019-01-01 05:32 | NUR ---
NURSE NOTES: Patient informed nurse that his left forearm hurts and may be broken. Inspected, patient is having sharp pain on the left forearm. Patient is able to move it but has sharp pain level 10/10. No swelling noted at the moment. Patient noted saying he fell an hour before he was given his last pain medication. Charge nurse informed. Will call
[2019-01-01 05:42] LABS: BASOPHILS % (AUTO) 0.6 % (0.0-2.0); EOSINOPHILS % (AUTO) 2.9 % (0.0-3.0); HEMATOCRIT 36.7 % (42.0-52.0); HEMOGLOBIN 12.1 G/DL (14.2-18.0); LYMPHOCYTES % (AUTO) 35.6 % (20.0-45.0); MEAN CORPUSCULAR VOLUME 91 FL (80-99); MONOCYTES % (AUTO) 9.2 % (1.0-10.0); NEUTROPHILS % (AUTO) 51.7 % (45.0-75.0); PLATELET COUNT 238 K/UL (150-450); RED BLOOD COUNT 4.05 M/UL (4.70-6.10); RED CELL DISTRIBUTION WIDTH 12.6 % (11.6-14.8); WHITE BLOOD COUNT 6.7 K/UL (4.8-10.8)
--- NOTE | 2019-01-01 05:44 | NUR ---
NURSE NOTES: Called Dr. Nicole exchange service for orders for patient. Awaiting call back.
[2019-01-01 05:50] LABS: ANION GAP 3 mmol/L (5-15); BLOOD UREA NITROGEN 23 mg/dL (7-18); CALCIUM 8.6 MG/DL (8.5-10.1); CARBON DIOXIDE 35 MMOL/L (21-32); CHLORIDE 99 MMOL/L (98-107); CREATININE 1.1 MG/DL (0.55-1.30); POTASSIUM 3.7 MMOL/L (3.5-5.1); SODIUM 137 MMOL/L (136-145)
--- NOTE | 2019-01-01 07:27 | NUR ---
NURSE NOTES: Received order from Dr. Nicole, noted and carried out. Xray and call Dr. Dixon.
--- NOTE | 2019-01-01 07:30 | NUR ---
NURSE NOTES: Received pt from MICAELA ZAVALA. Pt is ALERT and orient x4. pt is in RA, No SOB or acute respiratory distress noted. pt has intact PICC JADE SL. Pt is complaining of pain on L forearm all needs attended, bed is locked and is in the lowest position. call light within easy reach. will continue to monitor.
--- NOTE | 2019-01-01 07:45 | NUR ---
HAND-OFF: Report given to MICAELA Bar.
--- NOTE | 2019-01-01 08:35 | NUR ---
NURSE NOTES:Morbidly Obese male whom presented on admission with erythematous area across abd . with multiple small ulcerations oozing moderate amts of serous exudate.Skin temp slightly elevated at affected site. Bilat lower ext edematous and erythematous with multiple ulcerations oozing moderate amts serous exudate. Upon entry to room pt observed to have both lower ext with paper tape wrapped tightly around both lower ext . Pt stated he wanted paper wrapped around legs to prevent drsgs from falling off. Pt was educated of risks for having circulation comprised and was advised against wrapping tape around lower ext. Both lower ext and abd washed with soap and water. .Ulcers absd then cleansed with Saline. Xeroform gauze applied and covered with Optifoam drsgs..Both lower ext washed with soap and water. ulcerations cleansed with Saline.and pat dried. Xeroform gauzes placed over wounds then Calcium Alginate placed over Xeroform .Abd then applied and both lower ext wrapped with Xeroform gauze. Pt was educated to purpose of having Kerlix wrap from base of toes to calves to prevent circulation being comprised. Pt also encouraged to keep legs elevated. Recommendations:Cleanse wounds abd with Saline. Apply Xeroform gauze. Apply Calcium Alginate .Cover with ABD Pads or Optifoam drsg Daily and prn. Cleanse ulcers both lower ext with Saline.Cover wounds with Xeroform Gauzes.Apply Calcium Alginate over Xeroforms . Cover with ABD pds and wrap each lower ext with Kerlix starting from base of toes to below each knees Daily and PRN. Encourage pt to elevate lower ext.
--- NOTE | 2019-01-01 08:55 | NUR ---
RADIOLOGY DEPT., LEFT FOREARM X-RAYS COMPLETED.-P.DYE
[2019-01-01] MEDS: Losartan 25mg tab ORAL SCH (09:30)
[2019-01-01] MEDS: DULoxetine 30mg cap ORAL SCH (09:34)
[2019-01-01] MEDS: Lyrica 50mg cap ORAL SCH ×3 (09:35→17:12)
[2019-01-01] MEDS: Heparin 5000 units/ml inj SUBQ SCH ×2 (09:42→22:00)
[2019-01-01] MEDS: Levofloxacin 500mg tab ORAL SCH (12:18)
--- NOTE | 2019-01-01 12:23 | General Progress Note ---
Assessment/Plan Problem List: (1) Abdominal pannus ICD Codes: E65 - Localized adiposity SNOMED: 9669704358233 (2) Peripheral edema ICD Codes: R60.9 - Edema, unspecified SNOMED: 063621649 (3) Abdominal wall cellulitis ICD Codes: L03.311 - Cellulitis of abdominal wall SNOMED: 88768357 (4) Leg pain ICD Codes: M79.606 - Pain in leg, unspecified SNOMED: 11955834 (5) COPD (chronic obstructive pulmonary disease) ICD Codes: J44.9 - Chronic obstructive pulmonary disease, unspecified SNOMED: 32985553 (6) Seizures ICD Codes: R56.9 - Unspecified convulsions SNOMED: 43873771 (7) Morbid obesity ICD Codes: E66.01 - Morbid (severe) obesity due to excess calories SNOMED: 139946367 (8) Cerebrovascular accident ICD Codes: I63.9 - Cerebral infarction, unspecified SNOMED: 389077220 (9) Left-sided weakness ICD Codes: R53.1 - Weakness SNOMED: 079365835 Status: stable, progressing Assessment/Plan: pt diet neuro f/u wound care abx pain control cbc bmp am dc to snf Subjective Constitutional: Reports: weakness Allergies: Coded Allergies: ASPIRIN (Verified Allergy, Unknown, 07/14/18) KETOROLAC (Verified Allergy, Unknown, 07/14/18) PENICILLINS (Verified Allergy, Unknown, 12/23/18) tolerated Ancef on 08/2018 All Systems: reviewed and negative except above Subjective sleepy calm Objective Last 24 Hour Vital Signs Date Time Temp Pulse Resp B/P (MAP) Pulse Ox O2 Delivery O2 Flow Rate FiO2 01/01/19 11:06 98.1 01/01/19 09:30 99/56 01/01/19 08:00 98.1 84 20 99/56 (70) 95 01/01/19 07:09 92 Room Air 21 01/01/19 04:00 98.1 96 20 127/56 (79) 96 01/01/19 00:00 98.8 86 18 110/60 (77) 98 12/31/18 21:00 Room Air 12/31/18 20:00 98.5 90 18 112/60 (77) 94 12/31/18 15:35 98.1 12/31/18 14:18 84 18 92 Room Air 21 12/31/18 14:11 67 18 92 Room Air 21 12/31/18 14:11 21 Intake and Output 12/31/18 01/01/19 19:00 07:00 Intake Total 1510 ml 2000 ml Balance 1510 ml 2000 ml Intake Oral 1400 ml 2000 ml IV Total 110 ml # Voids 5 3 # Bowel Movements 1 Laboratory Tests 01/01/19 05:30: White Blood Count 6.7, Red Blood Count 4.05L, Hemoglobin 12.1L, Hematocrit 36.7L , Mean Corpuscular Volume 91, Mean Corpuscular Hemoglobin 29.9, Mean Corpuscular Hemoglobin Concent 33.0, Red Cell Distribution Width 12.6, Platelet Count 238, Mean Platelet Volume 5.2L, Neutrophils (%) (Auto) 51.7, Lymphocytes ( %) (Auto) 35.6, Monocytes (%) (Auto) 9.2, Eosinophils (%) (Auto) 2.9, Basophils (%) (Auto) 0.6, Sodium Level 137, Potassium Level 3.7, Chloride Level 99, Carbon Dioxide Level 35H, Anion Gap 3L, Blood Urea Nitrogen 23H, Creatinine 1.1 , Estimat Glomerular Filtration Rate > 60, Glucose Level 109H, Calcium Level 8.6 Height (Feet): 5 Height (Inches): 10.00 Weight (Pounds): 494 General Appearance: lethargic EENT: normal ENT inspection Neck: normal alignment Cardiovascular: normal peripheral pulses, normal rate, regular rhythm Respiratory/Chest: chest wall non-tender, lungs clear Abdomen: normal bowel sounds, distended Extremities: normal inspection Edema: 1+ Arm (L), 1+ Arm (R), 1+ Leg (L), 1+ Leg (R), 1+ Pedal (L), 1+ Pedal ( R), 1+ Generalized Edema: trace edema Neurologic: responsive, motor weakness Skin: normal pigmentation, warm/dry Ernesto Nicole DO Jan 01, 2019 12:23
--- NOTE | 2019-01-01 12:28 | Nephrology Progress Note ---
Assessment/Plan Problem List: (1) Hyponatremia (2) Morbid obesity (3) COPD (chronic obstructive pulmonary disease) Plan Mag IV as needed Low Na resolved cont per consultants Subjective ROS Limited/Unobtainable: No Constitutional: Reports: malaise Objective Objective Last 24 Hour Vital Signs Date Time Temp Pulse Resp B/P (MAP) Pulse Ox O2 Delivery O2 Flow Rate FiO2 01/01/19 11:06 98.1 01/01/19 09:30 99/56 01/01/19 08:00 98.1 84 20 99/56 (70) 95 01/01/19 07:09 92 Room Air 21 01/01/19 04:00 98.1 96 20 127/56 (79) 96 01/01/19 00:00 98.8 86 18 110/60 (77) 98 12/31/18 21:00 Room Air 12/31/18 20:00 98.5 90 18 112/60 (77) 94 12/31/18 15:35 98.1 12/31/18 14:18 84 18 92 Room Air 21 12/31/18 14:11 67 18 92 Room Air 21 12/31/18 14:11 21 Intake and Output 12/31/18 01/01/19 19:00 07:00 Intake Total 1510 ml 2000 ml Balance 1510 ml 2000 ml Intake Oral 1400 ml 2000 ml IV Total 110 ml # Voids 5 3 # Bowel Movements 1 Laboratory Tests 01/01/19 05:30: White Blood Count 6.7, Red Blood Count 4.05L, Hemoglobin 12.1L, Hematocrit 36.7L , Mean Corpuscular Volume 91, Mean Corpuscular Hemoglobin 29.9, Mean Corpuscular Hemoglobin Concent 33.0, Red Cell Distribution Width 12.6, Platelet Count 238, Mean Platelet Volume 5.2L, Neutrophils (%) (Auto) 51.7, Lymphocytes ( %) (Auto) 35.6, Monocytes (%) (Auto) 9.2, Eosinophils (%) (Auto) 2.9, Basophils (%) (Auto) 0.6, Sodium Level 137, Potassium Level 3.7, Chloride Level 99, Carbon Dioxide Level 35H, Anion Gap 3L, Blood Urea Nitrogen 23H, Creatinine 1.1 , Estimat Glomerular Filtration Rate > 60, Glucose Level 109H, Calcium Level 8.6 Height (Feet): 5 Height (Inches): 10.00 Weight (Pounds): 494 General Appearance: no apparent distress Objective no change Devante Taylor MD Jan 01, 2019 12:28
--- NOTE | 2019-01-01 13:25 | NUR ---
SS note Chart reviewed; No SW needs or concerns identified at this time. Pending discharge to [facility] when bed available.
--- NOTE | 2019-01-01 13:59 | Infectious Diseases Prog Note ---
Assessment/Plan Assessment/Plan B/l Leg cellulitis and panniculitis- in the setting of chronic venous stasis L side weakness/spasticity- thought be 2ry to seizures- r/O CVA- no active infectious process at present (pt afebrile- doubt meningitis at this moment) Afebrile No leukocytosis -CXR: No acute findings CVA HTN bipolar disorder w/ psychotic features tobacco abuse anxiety disorder chronic pain CHF seizure disorder COPD morbid obesity Dm2 HTN SN[facility] resident Plan: IV Dapto d# 7 ( pt Cr increased 30% will avoid Vanco) Would treat for 14 day ( End date 01/07/19) 12/25 sp Bactrim #4/14 and add IV Ancef #3/14 for cellulitis -Monitor CBC/CMP, temperatures -neuro f/u- plan for CT head, include neck as lump in back of neck; however pt did not fit on CT scan machine due to weight -aspiration precautions -wound care per hospital protocol Subjective Allergies: Coded Allergies: ASPIRIN (Verified Allergy, Unknown, 07/14/18) KETOROLAC (Verified Allergy, Unknown, 07/14/18) PENICILLINS (Verified Allergy, Unknown, 12/23/18) tolerated Ancef on 08/2018 Subjective JANEE Afebrile No leukocytosis Objective Vital Signs Last 24 Hour Vital Signs Date Time Temp Pulse Resp B/P (MAP) Pulse Ox O2 Delivery O2 Flow Rate FiO2 01/01/19 12:00 98.1 97 20 153/92 (112) 95 01/01/19 11:06 98.1 01/01/19 09:30 99/56 01/01/19 09:00 Room Air 01/01/19 08:00 98.1 84 20 99/56 (70) 95 01/01/19 07:09 92 Room Air 01/01/19 04:00 98.1 96 20 127/56 (79) 96 01/01/19 00:00 98.8 86 18 110/60 (77) 98 12/31/18 21:00 Room Air 12/31/18 20:00 98.5 90 18 112/60 (77) 94 12/31/18 15:35 98.1 12/31/18 14:18 84 18 92 Room Air 21 12/31/18 14:11 67 18 92 Room Air 21 12/31/18 14:11 21 Height (Feet): 5 Height (Inches): 10.00 Weight (Pounds): 494 Objective GEN: NAD, sitting on the side of the bed HEENT: NCAT, MMM Respiratory/Chest: CTAB, No W Cardiovascular: RRR, S1, S2 Abdomen: Soft, ND Ext. LE in bandages B/L Microbiology Date/Time Source Procedure Growth Status 12/30/18 12:20 Sputum Gram Stain - Final Complete 12/30/18 12:20 Sputum Sputum Culture - Final NORMAL UPPER RESPIRATORY EDITH PRESENT Complete Laboratory Tests Test 01/01/19 05:30 White Blood Count 6.7 K/UL (4.8-10.8) Red Blood Count 4.05 M/UL (4.70-6.10) L Hemoglobin 12.1 G/DL (14.2-18.0) L Hematocrit 36.7 % (42.0-52.0) L Mean Corpuscular Volume 91 FL (80-99) Mean Corpuscular Hemoglobin 29.9 PG (27.0-31.0) Mean Corpuscular Hemoglobin Concent 33.0 G/DL (32.0-36.0) Red Cell Distribution Width 12.6 % (11.6-14.8) Platelet Count 238 K/UL (150-450) Mean Platelet Volume 5.2 FL (6.5-10.1) L Neutrophils (%) (Auto) 51.7 % (45.0-75.0) Lymphocytes (%) (Auto) 35.6 % (20.0-45.0) Monocytes (%) (Auto) 9.2 % (1.0-10.0) Eosinophils (%) (Auto) 2.9 % (0.0-3.0) Basophils (%) (Auto) 0.6 % (0.0-2.0) Sodium Level 137 MMOL/L (136-145) Potassium Level 3.7 MMOL/L (3.5-5.1) Chloride Level 99 MMOL/L (98-107) Carbon Dioxide Level 35 MMOL/L (21-32) H Anion Gap 3 mmol/L (5-15) L Blood Urea Nitrogen 23 mg/dL (7-18) H Creatinine 1.1 MG/DL (0.55-1.30) Estimat Glomerular Filtration Rate > 60 mL/min (>60) Glucose Level 109 MG/DL (74-106) H Calcium Level 8.6 MG/DL (8.5-10.1) Current Medications Medications (Trade) Dose Ordered Sig/Luis Route PRN Reason Start Time Stop Time Status Last Admin Dose Admin Acetaminophen (Tylenol) 650 mg Q4H PRN ORAL fever 12/15/18 14:54 01/14/19 14:53 Albuterol/ Ipratropium (Albuterol/ Ipratropium) 3 ml Q4H PRN HHN Shortness of breath 12/30/18 19:00 01/04/19 18:59 12/31/18 14:13 Atorvastatin Calcium (Lipitor) 80 mg BEDTIME ORAL 12/15/18 21:00 01/14/19 20:59 12/31/18 22:17 Chlorhexidine Gluconate (Ruby-Hex 2%) 1 applic DAILY@2000 TOPIC 12/22/18 20:00 01/21/19 19:59 12/31/18 22:20 Clonidine HCl (Catapres Tab) 0.1 mg Q4H PRN ORAL For High Blood Pressure 12/15/18 14:56 01/14/19 14:55 Clopidogrel Bisulfate (Plavix) 75 mg DAILY ORAL 12/16/18 09:00 01/14/19 08:59 01/01/19 09:34 Daptomycin 900 mg/ Sodium Chloride 55 ml @ 110 mls/hr Q24H IV 12/25/18 14:00 01/07/19 13:59 12/31/18 15:05 Dextrose (Dextrose 50%) 25 ml Q30M PRN IV Hypoglycemia 12/15/18 15:15 01/13/19 23:44 Dextrose (Dextrose 50%) 50 ml Q30M PRN IV Hypoglycemia 12/15/18 15:15 01/13/19 23:44 Duloxetine HCl (Cymbalta) 30 mg DAILY ORAL 12/16/18 09:00 01/14/19 08:59 01/01/19 09:34 Furosemide (Lasix) 20 mg Q6HR IV 12/22/18 00:00 01/21/19 00:00 01/01/19 12:19 Gabapentin (Neurontin) 600 mg THREE TIMES A DAY ORAL 12/15/18 18:00 01/14/19 08:59 01/01/19 12:19 Heparin Sodium (Porcine) (Heparin 5000 units/ml) 5,000 units EVERY 12 HOURS SUBQ 12/15/18 21:00 01/14/19 08:59 01/01/19 09:42 Hydromorphone HCl (Dilaudid) 4 mg Q4H PRN IVP Breakthrough Pain 01/01/19 10:29 01/08/19 10:28 01/01/19 10:36 Levetiracetam (Keppra) 1,500 mg Q12HR ORAL 12/29/18 09:00 01/18/19 08:59 01/01/19 09:34 Levofloxacin (Levaquin) 500 mg Q24H ORAL 12/30/18 13:00 01/06/19 12:59 01/01/19 12:18 Losartan Potassium (Cozaar) 25 mg DAILY ORAL 12/29/18 13:45 01/28/19 13:44 12/30/18 09:33 Methadone HCl (Methadone HCl) 10 mg EVERY 8 HOURS ORAL 12/29/18 22:00 01/05/19 21:59 01/01/19 06:43 Nitroglycerin (Ntg) 0.4 mg Q5M X 3 DOSES PRN SL Prn Chest Pain 12/15/18 14:45 01/13/19 23:44 Ondansetron HCl (Zofran) 4 mg Q6H PRN IVP Nausea & Vomiting 12/15/18 14:55 01/14/19 14:54 12/17/18 10:19 Polyethylene Glycol (Miralax) 17 gm HSPRN PRN ORAL Constipation 12/15/18 14:55 01/14/19 14:54 Pregabalin (Lyrica) 100 mg THREE TIMES A DAY ORAL 12/26/18 09:00 01/19/19 22:59 01/01/19 12:18 Promethazine HCl/ Codeine (Phenergan with Codeine) 5 ml Q4H PRN ORAL For Cough 12/28/18 12:00 01/27/19 11:59 01/01/19 01:34 Trazodone HCl (Desyrel) 100 mg BEDTIME ORAL 12/15/18 21:00 01/14/19 20:59 12/31/18 22:16 Elliot Chauhan MD Jan 01, 2019 13:59
--- NOTE | 2019-01-01 14:00 | NUR ---
NURSE NOTES: pt asked to give him methadone one hour after Dilaudid, so methadone is hold till that time. will continue to monitor.
--- NOTE | 2019-01-01 14:01 | NUR ---
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
[2019-01-01] MEDS: DAPTOMYCIN IV SCH (14:38)
[2019-01-01] MEDS: NS IV SCH (14:38)
[2019-01-01] MEDS: Albuterol/Ipratropium 3ml neb HHN PRN (15:30)
--- NOTE | 2019-01-01 15:50 | Pulmonology Progress Note ---
Assessment/Plan Problems: (1) Morbid obesity (2) Peripheral edema (3) Cellulitis (4) Seizures (5) Cerebrovascular accident (6) Left-sided weakness (7) COPD (chronic obstructive pulmonary disease) (8) Right heart failure (9) Lumbar spondylosis (10) ADALBERTO (obstructive sleep apnea) Assessment/Plan sputum negative will get cxr coughing up dark/ brown phlegm. add levofloxacin all meds /notes reviewed pt/ot increase dialudid to 4 mg and add Methadone 10Q8 respiratory treatment titrate fio2 to sat of 92% dvt prophylaxis Subjective ROS Limited/Unobtainable: No Constitutional: Reports: no symptoms HEENT: Repors: no symptoms Respiratory: Reports: no symptoms Allergies: Coded Allergies: ASPIRIN (Verified Allergy, Unknown, 07/14/18) KETOROLAC (Verified Allergy, Unknown, 07/14/18) PENICILLINS (Verified Allergy, Unknown, 12/23/18) tolerated Ancef on 08/2018 Objective Last 24 Hour Vital Signs Date Time Temp Pulse Resp B/P (MAP) Pulse Ox O2 Delivery O2 Flow Rate FiO2 01/01/19 15:28 86 20 94 Nasal Cannula 2.0 28 01/01/19 15:16 85 20 90 Room Air 21 01/01/19 12:00 98.1 97 20 153/92 (112) 95 01/01/19 11:06 98.1 01/01/19 09:30 99/56 01/01/19 09:00 Room Air 01/01/19 08:00 98.1 84 20 99/56 (70) 95 01/01/19 07:09 92 Room Air 21 01/01/19 04:00 98.1 96 20 127/56 (79) 96 01/01/19 00:00 98.8 86 18 110/60 (77) 98 12/31/18 21:00 Room Air 12/31/18 20:00 98.5 90 18 112/60 (77) 94 Intake and Output 12/31/18 01/01/19 19:00 07:00 Intake Total 1510 ml 2000 ml Balance 1510 ml 2000 ml Intake Oral 1400 ml 2000 ml IV Total 110 ml # Voids 5 3 # Bowel Movements 1 Objective HEENT: normocephalic, atraumatic Respiratory/Chest: chest wall non-tender, lungs clear Cardiovascular: normal peripheral pulses, normal rate Abdomen: normal bowel sounds, no organomegaly, massive fat on abdomen Extremities: no cyanosis Skin: no lesions Microbiology Date/Time Source Procedure Growth Status 12/30/18 12:20 Sputum Gram Stain - Final Complete 12/30/18 12:20 Sputum Sputum Culture - Final NORMAL UPPER RESPIRATORY EDITH PRESENT Complete Laboratory Tests 01/01/19 05:30: White Blood Count 6.7, Red Blood Count 4.05L, Hemoglobin 12.1L, Hematocrit 36.7L , Mean Corpuscular Volume 91, Mean Corpuscular Hemoglobin 29.9, Mean Corpuscular Hemoglobin Concent 33.0, Red Cell Distribution Width 12.6, Platelet Count 238, Mean Platelet Volume 5.2L, Neutrophils (%) (Auto) 51.7, Lymphocytes ( %) (Auto) 35.6, Monocytes (%) (Auto) 9.2, Eosinophils (%) (Auto) 2.9, Basophils (%) (Auto) 0.6, Sodium Level 137, Potassium Level 3.7, Chloride Level 99, Carbon Dioxide Level 35H, Anion Gap 3L, Blood Urea Nitrogen 23H, Creatinine 1.1 , Estimat Glomerular Filtration Rate > 60, Glucose Level 109H, Calcium Level 8.6 Current Medications Medications (Trade) Dose Ordered Sig/Luis Route PRN Reason Start Time Stop Time Status Last Admin Dose Admin Acetaminophen (Tylenol) 650 mg Q4H PRN ORAL fever 12/15/18 14:54 01/14/19 14:53 Albuterol/ Ipratropium (Albuterol/ Ipratropium) 3 ml Q4H PRN HHN Shortness of breath 12/30/18 19:00 01/04/19 18:59 01/01/19 15:30 Atorvastatin Calcium (Lipitor) 80 mg BEDTIME ORAL 12/15/18 21:00 01/14/19 20:59 12/31/18 22:17 Chlorhexidine Gluconate (Ruby-Hex 2%) 1 applic DAILY@1999 TOPIC 12/22/18 20:00 01/21/19 19:59 12/31/18 22:20 Clonidine HCl (Catapres Tab) 0.1 mg Q4H PRN ORAL For High Blood Pressure 12/15/18 14:56 01/14/19 14:55 Clopidogrel Bisulfate (Plavix) 75 mg DAILY ORAL 12/16/18 09:00 01/14/19 08:59 01/01/19 09:34 Daptomycin 900 mg/ Sodium Chloride 55 ml @ 110 mls/hr Q24H IV 12/25/18 14:00 01/07/19 13:59 01/01/19 14:38 Dextrose (Dextrose 50%) 25 ml Q30M PRN IV Hypoglycemia 12/15/18 15:15 01/13/19 23:44 Dextrose (Dextrose 50%) 50 ml Q30M PRN IV Hypoglycemia 12/15/18 15:15 01/13/19 23:44 Duloxetine HCl (Cymbalta) 30 mg DAILY ORAL 12/16/18 09:00 01/14/19 08:59 01/01/19 09:34 Furosemide (Lasix) 20 mg Q6HR IV 12/22/18 00:00 01/21/19 00:00 01/01/19 12:19 Gabapentin (Neurontin) 600 mg THREE TIMES A DAY ORAL 12/15/18 18:00 01/14/19 08:59 01/01/19 12:19 Heparin Sodium (Porcine) (Heparin 5000 units/ml) 5,000 units EVERY 12 HOURS SUBQ 12/15/18 21:00 01/14/19 08:59 01/01/19 09:42 Hydromorphone HCl (Dilaudid) 4 mg Q4H PRN IVP Breakthrough Pain 01/01/19 10:29 01/08/19 10:28 01/01/19 14:38 Levetiracetam (Keppra) 2,000 mg Q12HR ORAL 01/01/19 21:00 01/18/19 08:59 Levofloxacin (Levaquin) 500 mg Q24H ORAL 12/30/18 13:00 01/06/19 12:59 01/01/19 12:18 Losartan Potassium (Cozaar) 25 mg DAILY ORAL 12/29/18 13:45 01/28/19 13:44 12/30/18 09:33 Methadone HCl (Methadone HCl) 10 mg EVERY 8 HOURS ORAL 12/29/18 22:00 01/05/19 21:59 01/01/19 06:43 Nitroglycerin (Ntg) 0.4 mg Q5M X 3 DOSES PRN SL Prn Chest Pain 12/15/18 14:45 01/13/19 23:44 Ondansetron HCl (Zofran) 4 mg Q6H PRN IVP Nausea & Vomiting 12/15/18 14:55 01/14/19 14:54 12/17/18 10:19 Polyethylene Glycol (Miralax) 17 gm HSPRN PRN ORAL Constipation 12/15/18 14:55 01/14/19 14:54 Pregabalin (Lyrica) 100 mg THREE TIMES A DAY ORAL 12/26/18 09:00 01/19/19 22:59 01/01/19 12:18 Promethazine HCl/ Codeine (Phenergan with Codeine) 5 ml Q4H PRN ORAL For Cough 12/28/18 12:00 01/27/19 11:59 01/01/19 01:34 Trazodone HCl (Desyrel) 100 mg BEDTIME ORAL 12/15/18 21:00 01/14/19 20:59 12/31/18 22:16 Bill Dixon MD Jan 01, 2019 15:50
--- NOTE | 2019-01-01 17:47 | Diagnostic Imaging Report ---
. Indications: Left arm pain Technique: Two views of the left forearm Comparison: None Findings: No acute fractures. No dislocations. There are surgical clips in the forearm. Joint spaces are preserved. Impression: No acute process
--- NOTE | 2019-01-01 17:49 | Diagnostic Imaging Report ---
Indication: Shortness of breath Technique: One view of the chest Comparison: 12/14/2018 Findings: There body habitus limits evaluation. There is atelectasis at the left lung base. The heart is borderline enlarged. Impression: Left basilar atelectasis No acute process otherwise
--- NOTE | 2019-01-01 19:14 | NUR ---
HAND-OFF: Report given to MICAELA ZAVALA.
--- NOTE | 2019-01-01 20:00 | NUR ---
NURSE NOTES: Patient in bed, awake, alert and verbally responsive. Able to make needs known. Respiration is even and unlabored. Complained of pain 9/10 constant ache. Will check PRN pain medication. Abdomen is soft round, dressing noted. NOted with lower extremities dressing. PICC line noted. Will continue plan of care. Call light is at bedside.
--- NOTE | 2019-01-01 20:43 | Neurology Progress Note ---
Interim History Interim History ROS Limited/Unobtainable: No Complaints: Seizures/ Weakness Events: This visit was performed on January 01, [address] Amador Brewster Interim History New reported seizure activity as per patient. Objective Physical Exam Last Vital Signs Date Time Temp Pulse Resp B/P (MAP) Pulse Ox O2 Delivery O2 Flow Rate FiO2 01/01/19 19:54 94 Room Air 21 01/01/19 19:11 98.3 01/01/19 16:00 88 20 132/75 (94) 01/01/19 15:28 2.0 Laboratory Tests Test 01/01/19 05:30 White Blood Count 6.7 K/UL (4.8-10.8) Red Blood Count 4.05 M/UL (4.70-6.10) L Hemoglobin 12.1 G/DL (14.2-18.0) L Hematocrit 36.7 % (42.0-52.0) L Mean Corpuscular Volume 91 FL (80-99) Mean Corpuscular Hemoglobin 29.9 PG (27.0-31.0) Mean Corpuscular Hemoglobin Concent 33.0 G/DL (32.0-36.0) Red Cell Distribution Width 12.6 % (11.6-14.8) Platelet Count 238 K/UL (150-450) Mean Platelet Volume 5.2 FL (6.5-10.1) L Neutrophils (%) (Auto) 51.7 % (45.0-75.0) Lymphocytes (%) (Auto) 35.6 % (20.0-45.0) Monocytes (%) (Auto) 9.2 % (1.0-10.0) Eosinophils (%) (Auto) 2.9 % (0.0-3.0) Basophils (%) (Auto) 0.6 % (0.0-2.0) Sodium Level 137 MMOL/L (136-145) Potassium Level 3.7 MMOL/L (3.5-5.1) Chloride Level 99 MMOL/L (98-107) Carbon Dioxide Level 35 MMOL/L (21-32) H Anion Gap 3 mmol/L (5-15) L Blood Urea Nitrogen 23 mg/dL (7-18) H Creatinine 1.1 MG/DL (0.55-1.30) Estimat Glomerular Filtration Rate > 60 mL/min (>60) Glucose Level 109 MG/DL (74-106) H Calcium Level 8.6 MG/DL (8.5-10.1) General: well developed, other - Morbidly obese Head: normocophalic Neck: no rigidity EENT: benign Neurologic Exam Mental Status: awake, oriented x4, normal cognition, good mathematical skills, normal recent memory, normal remote memory, preserved visuospatial function Speech: normal speech, no dysarthia Language: normal language, no aphasia Cranial Nerve II: fundus normal, visual bonilla, no papilledema Cranial Nerves III, IV, : PERRLA, EOMI, pupils Cranial Nerve V: normal facial sensations, temporales function normal, masseters function normal, pterygoids function normal Cranial Nerve VII: normal facial expressions, other Cranial Nerve VIII: normal hearing, no nystagmus Cranial Nerve IX: normal palate elevation, gag response Cranial Nerve X: no voice hoarseness Cranial Nerve XI: SCM symmetric, trapezii function normal Cranial Nerve XII: tongue midline, no tongue atrophy/fasciculations Motor System: normal muscle tone, no involuntary movement, no muscle wasting Sensory: normal pinprick, normal light touch, normal position sense, normal graphesthesia Coordination: normal heel to villarreal bilaterally, negative Romberg test Deep Tendon Reflexes: 1+ bicep (L), 1+ bicep (R), 1+ tricep (L), 1+ tricep (R) , 1+ brachioradialis (L), 1+ brachioradialis (R), 1+ knee (L), 1+ knee (R), 1+ ankle (L), 1+ ankle (R) Reflexes: flexor plantar (L), flexor plantar (R); extensor plantar (L), extensor plantar (R) Stance: other - Broad based Gait: stable Objective Left arm, predominantly hand weakness at this time. Alert and oriented Mood stable, some mild aphasia today and drowsiness Ambulatory with cellulitis persisting on BLE He does not have proximal left arm weakness at this time, mild facial weakness, tongue deviated on exam Impression/Recommendations Problems: (1) Seizures Assessment & Plan: Keppra 1500mg BID PO Maintain SBP<140 Q4 Hour Neuro Checks Ativan 2mg PRN for seizure activity CT Head w/o contrast when able to rule out CVA - also for consideration of MRI if CT negative. - low suspicion of CVA due to normotensive status without risk factors of elevated BP/ HgBA1c or thyroid dysfunction. Na 135-145 Continue pain management - Lyrica 100mg TID - Continue Gabapentin 600mg TID Intense PT recommended (2) Morbid obesity (3) COPD (chronic obstructive pulmonary disease) (4) Uncontrolled seizures (5) Left-sided weakness Assessment & Plan: No seizure activity captured on EEG but mild to moderate degree of encephalopathy seen. (6) Knee osteomyelits, right Status: stable, progressing Recommendations Q4 hour Neuro Obs - NO NIGHTTIME OBS if stable Prevent delirium Maintain regular sleep schedule and reduce nighttime activities such as observations (if unnecessary) EEG Pending, Keppra dose increased to 2g BID , some increased sleepiness expected . Will consider addition of oral Lamictal Vicky Taylor N.P. Jan 01, 2019 20:43
[2019-01-01] MEDS: Atorvastatin 80mg tab ORAL SCH (21:53)
[2019-01-01] MEDS: TraZODone 100mg tab ORAL SCH (21:54)
[2019-01-01] MEDS: Dyna-Hex 2% Top Sol 2oz TOPIC SCH (21:55)
--- NOTE | 2019-01-01 22:34 | NUR ---
NURSE NOTES: The studio technician video operator, Amador will come back tomorrow to perform EEG on the patient.
--- NOTE | 2019-01-01 23:20 | Cardiology Progress Note ---
Assessment/Plan Assessment/Plan 1. Morbid obesity with panniculitis, normal LV systolic and diastolic function per recent echo, clear for "removal of pannus". 2. Chronic venous insufficiency, off amlodipine. 3. HTN, well controlled, continue losartan. 4. COPD 5. Seizure D/O 6. Hypomagnesemia, Mg level in am. Subjective Subjective Denies chest pain or SOB. No cardiac events. Objective Last 24 Hour Vital Signs Date Time Temp Pulse Resp B/P (MAP) Pulse Ox O2 Delivery O2 Flow Rate FiO2 01/01/19 21:00 Room Air 01/01/19 20:00 97.0 87 19 110/62 (78) 94 01/01/19 19:54 94 Room Air 21 01/01/19 19:11 98.3 01/01/19 16:00 98.3 88 20 132/75 (94) 94 01/01/19 15:28 86 20 94 Nasal Cannula 2.0 28 01/01/19 15:16 85 20 90 Room Air 21 01/01/19 12:00 98.1 97 20 153/92 (112) 95 01/01/19 09:30 99/56 01/01/19 09:00 Room Air 01/01/19 08:00 98.1 84 20 99/56 (70) 95 01/01/19 07:09 92 Room Air 21 01/01/19 04:00 98.1 96 20 127/56 (79) 96 01/01/19 00:00 98.8 86 18 110/60 (77) 98 Intake and Output 12/31/18 01/01/19 18:59 06:59 Intake Total 1510 ml 2000 ml Balance 1510 ml 2000 ml Intake Oral 1400 ml 2000 ml IV Total 110 ml # Voids 5 3 # Bowel Movements 1 2D Echo: Normal LV systolic function, RVSP 34 mmHg, RAP elevated at 15 mmHg Laboratory Tests Test 01/01/19 05:30 White Blood Count 6.7 K/UL (4.8-10.8) Red Blood Count 4.05 M/UL (4.70-6.10) L Hemoglobin 12.1 G/DL (14.2-18.0) L Hematocrit 36.7 % (42.0-52.0) L Mean Corpuscular Volume 91 FL (80-99) Mean Corpuscular Hemoglobin 29.9 PG (27.0-31.0) Mean Corpuscular Hemoglobin Concent 33.0 G/DL (32.0-36.0) Red Cell Distribution Width 12.6 % (11.6-14.8) Platelet Count 238 K/UL (150-450) Mean Platelet Volume 5.2 FL (6.5-10.1) L Neutrophils (%) (Auto) 51.7 % (45.0-75.0) Lymphocytes (%) (Auto) 35.6 % (20.0-45.0) Monocytes (%) (Auto) 9.2 % (1.0-10.0) Eosinophils (%) (Auto) 2.9 % (0.0-3.0) Basophils (%) (Auto) 0.6 % (0.0-2.0) Sodium Level 137 MMOL/L (136-145) Potassium Level 3.7 MMOL/L (3.5-5.1) Chloride Level 99 MMOL/L (98-107) Carbon Dioxide Level 35 MMOL/L (21-32) H Anion Gap 3 mmol/L (5-15) L Blood Urea Nitrogen 23 mg/dL (7-18) H Creatinine 1.1 MG/DL (0.55-1.30) Estimat Glomerular Filtration Rate > 60 mL/min (>60) Glucose Level 109 MG/DL (74-106) H Calcium Level 8.6 MG/DL (8.5-10.1) Microbiology Date/Time Source Procedure Growth Status 12/30/18 12:20 Sputum Gram Stain - Final Complete 12/30/18 12:20 Sputum Sputum Culture - Final NORMAL UPPER RESPIRATORY EDITH PRESENT Complete Objective HEENT: Atraumatic and normocephalic. Anicteric. Pupils are equal, round, and reactive to light and accommodation. NECK: JVP cannot be assessed due to obesity. No carotid bruit. CARDIOVASCULAR: Normal S1, S2. Regular rate and rhythm. No murmurs, gallops, or rubs. PMI is at fourth intercostal space at the midclavicular line. LUNGS: Clear to auscultation bilaterally. ABDOMEN: Distended due to pannus formation, cannot palpate hepatosplenomegaly. Positive bowel sounds. EXTREMITIES: No lower extremity edema, clubbing or cyanosis. Carlos Martins MD Jan 01, 2019 23:20
--- NOTE | 2019-01-02 | Progress Note ---
DATE: 01/01/2019 SUBJECTIVE: This is a 53-year-old male patient. This patient is confused and disorganized. He has got no logical plan for his own self-care. He has problems with helplessness, low energy, poor appetite, and loss of interest in activity. He is actually not confused, but he has anxiety and depression. He has COPD obesity, and possible CVA, and it is causing increased depression and anxiety. That is why his attending has requested daily psychiatric consultation. MENTAL STATUS EXAMINATION: This is a 53-year-old male. Appearance is disheveled. Attitude, irritable and agitated. Affect, guarded and restricted. Intellect poor. Mood, depressed and anxious. Motor activity, psychomotor agitation. Attention span is poor. Orientation x2. Speech is low volume and slurred. Thought process, disorganized. Thought content, some paranoia. Insight and judgment is poor. DIAGNOSIS: Major depressive disorder, mild, recurrent, without psychotic features. PLAN: Treat him with Cymbalta 30 mg daily, Neurontin 600 mg three times a day, and also trazodone 100 mg nightly. 20 minutes of cognitive behavioral therapy to help him identify his automatic negative thoughts and convert negative thoughts to more positive thoughts to reduce depression, anxiety, and mood lability. Chart reviewed. Discussed with staff. 20 minutes of cognitive behavioral therapy provided. Laney Mcghee M.D. DR: SHANEKA JOB#: [id number] CC:
--- NOTE | 2019-01-02 02:40 | NUR ---
NURSE NOTES: Patient complained of pain given PRN pain medication as ordered. Call light is at bedside. No seizure episode noted at this time. Call Will continue plan of care.
[2019-01-02 04:00] VITALS: BP 120/71
--- NOTE | 2019-01-02 05:15 | Progress Note ---
DATE: 01/01/2019 NOTE: POOR AUDIO PSYCHOTHERAPY CONSULTATION PROGRESS NOTE TREATING ATTENDING: Ernesto Nicole D.O. SUBJECTIVE: This is a 53-year-old male patient with a history of bipolar disorder, very depressed. He states that he had fallen and woken up, very confused and disorganized. very fearful of his medical condition. He states he does not know what is happening to him, does not know if he is going to feel better any time soon. He has been in the hospital for an extensive period of time and he is very fearful that nursing facility. He denies suicidal or homicidal thoughts of ideation. I assessed this patient. The patient . His mood is anxious. Thought process, disorganized. Thought content, linear. Has fair attention and concentration. Poor insight, judgment, and impulse control. Provided the patient with, 1. Supportive psychotherapy which is focused on identifying positive emotions of stress and feeling very anxious and . 2. Provided the patient with cognitive behavioral therapy which is focused on . We discussed positive coping skills including positive thought processes . Plan is to maintain medication compliance with positive coping skills to stabilize the thoughts and behavior. Psychotherapy provided to this patient, 20 minutes. This clinician has reviewed the patient's chart. Discussed treatment with treatment team. Liu Jackman PsyD. DR: JUANITA JOB#: [id number] CC:
[2019-01-02] MEDS: Albuterol/Ipratropium 3ml neb HHN PRN ×2 (05:50→12:45)
--- NOTE | 2019-01-02 06:43 | Pulmonology Progress Note ---
Assessment/Plan Problems: (1) Morbid obesity (2) Peripheral edema (3) Cellulitis (4) Seizures (5) Cerebrovascular accident (6) Left-sided weakness (7) COPD (chronic obstructive pulmonary disease) (8) Right heart failure (9) Lumbar spondylosis (10) ADALBERTO (obstructive sleep apnea) Assessment/Plan sputum negative cxr 01/01 showed no acute process coughing up dark/ brown phlegm. add levofloxacin all meds /notes reviewed pt/ot increase dialudid to 4 mg and add Methadone 10Q8 respiratory treatment titrate fio2 to sat of 92% dvt prophylaxis watch bun/creatinine, repeat BNP on lasix q 6 hours. Subjective ROS Limited/Unobtainable: No Interval Events: still coughing Allergies: Coded Allergies: ASPIRIN (Verified Allergy, Unknown, 07/14/18) KETOROLAC (Verified Allergy, Unknown, 07/14/18) PENICILLINS (Verified Allergy, Unknown, 12/23/18) tolerated Ancef on 08/2018 Objective Last 24 Hour Vital Signs Date Time Temp Pulse Resp B/P (MAP) Pulse Ox O2 Delivery O2 Flow Rate FiO2 01/02/19 05:59 84 20 96 Nasal Cannula 2.0 28 01/02/19 05:50 83 20 94 Room Air 21 01/02/19 04:00 98.8 92 20 120/71 (87) 94 01/01/19 21:00 Room Air 01/01/19 20:00 97.0 87 19 110/62 (78) 94 01/01/19 19:54 94 Room Air 21 01/01/19 19:11 98.3 01/01/19 16:00 98.3 88 20 132/75 (94) 94 01/01/19 15:28 86 20 94 Nasal Cannula 2.0 28 01/01/19 15:16 85 20 90 Room Air 21 01/01/19 12:00 98.1 97 20 153/92 (112) 95 01/01/19 09:30 99/56 01/01/19 09:00 Room Air 01/01/19 08:00 98.1 84 20 99/56 (70) 95 01/01/19 07:09 92 Room Air 21 Intake and Output 01/01/19 01/02/19 19:00 07:00 Intake Total 1495 ml Balance 1495 ml Intake Oral 1440 ml IV Total 55 ml # Voids 3 Objective HEENT: normocephalic, atraumatic Respiratory/Chest: chest wall non-tender, lungs clear Cardiovascular: normal peripheral pulses, normal rate Abdomen: normal bowel sounds, no organomegaly, massive fat on abdomen Extremities: no cyanosis Skin: no lesions Microbiology Date/Time Source Procedure Growth Status 12/30/18 12:20 Sputum Gram Stain - Final Complete 12/30/18 12:20 Sputum Sputum Culture - Final NORMAL UPPER RESPIRATORY EDITH PRESENT Complete Current Medications Medications (Trade) Dose Ordered Sig/Luis Route PRN Reason Start Time Stop Time Status Last Admin Dose Admin Acetaminophen (Tylenol) 650 mg Q4H PRN ORAL fever 12/15/18 14:54 01/14/19 14:53 Albuterol/ Ipratropium (Albuterol/ Ipratropium) 3 ml Q4H PRN HHN Shortness of breath 12/30/18 19:00 01/04/19 18:59 01/02/19 05:50 Atorvastatin Calcium (Lipitor) 80 mg BEDTIME ORAL 12/15/18 21:00 01/14/19 20:59 01/01/19 21:53 Chlorhexidine Gluconate (Ruby-Hex 2%) 1 applic DAILY@2000 TOPIC 12/22/18 20:00 01/21/19 19:59 01/01/19 21:55 Clonidine HCl (Catapres Tab) 0.1 mg Q4H PRN ORAL For High Blood Pressure 12/15/18 14:56 01/14/19 14:55 Clopidogrel Bisulfate (Plavix) 75 mg DAILY ORAL 12/16/18 09:00 01/14/19 08:59 01/01/19 09:34 Daptomycin 900 mg/ Sodium Chloride 55 ml @ 110 mls/hr Q24H IV 12/25/18 14:00 01/07/19 13:59 01/01/19 14:38 Dextrose (Dextrose 50%) 25 ml Q30M PRN IV Hypoglycemia 12/15/18 15:15 01/13/19 23:44 Dextrose (Dextrose 50%) 50 ml Q30M PRN IV Hypoglycemia 12/15/18 15:15 01/13/19 23:44 Duloxetine HCl (Cymbalta) 30 mg DAILY ORAL 12/16/18 09:00 01/14/19 08:59 01/01/19 09:34 Furosemide (Lasix) 20 mg Q6HR IV 12/22/18 00:00 01/21/19 00:00 01/01/19 17:12 Gabapentin (Neurontin) 600 mg THREE TIMES A DAY ORAL 12/15/18 18:00 01/14/19 08:59 01/01/19 17:12 Heparin Sodium (Porcine) (Heparin 5000 units/ml) 5,000 units EVERY 12 HOURS SUBQ 12/15/18 21:00 01/14/19 08:59 01/01/19 22:00 Hydromorphone HCl (Dilaudid) 4 mg Q4H PRN IVP Breakthrough Pain 01/01/19 10:29 01/08/19 10:28 01/02/19 02:35 Levetiracetam (Keppra) 2,000 mg Q12HR ORAL 01/01/19 21:00 01/18/19 08:59 01/01/19 21:54 Levofloxacin (Levaquin) 500 mg Q24H ORAL 12/30/18 13:00 01/06/19 12:59 01/01/19 12:18 Losartan Potassium (Cozaar) 25 mg DAILY ORAL 12/29/18 13:45 01/28/19 13:44 12/30/18 09:33 Methadone HCl (Methadone HCl) 10 mg EVERY 8 HOURS ORAL 12/29/18 22:00 01/05/19 21:59 01/01/19 21:54 Nitroglycerin (Ntg) 0.4 mg Q5M X 3 DOSES PRN SL Prn Chest Pain 12/15/18 14:45 01/13/19 23:44 Ondansetron HCl (Zofran) 4 mg Q6H PRN IVP Nausea & Vomiting 12/15/18 14:55 01/14/19 14:54 12/17/18 10:19 Polyethylene Glycol (Miralax) 17 gm HSPRN PRN ORAL Constipation 12/15/18 14:55 01/14/19 14:54 Pregabalin (Lyrica) 100 mg THREE TIMES A DAY ORAL 12/26/18 09:00 01/19/19 22:59 01/01/19 17:12 Promethazine HCl/ Codeine (Phenergan with Codeine) 5 ml Q4H PRN ORAL For Cough 12/28/18 12:00 01/27/19 11:59 01/01/19 01:34 Trazodone HCl (Desyrel) 100 mg BEDTIME ORAL 12/15/18 21:00 01/14/19 20:59 01/01/19 21:54 Bill Dixon MD Jan 02, 2019 06:43
--- NOTE | 2019-01-02 07:30 | NUR ---
NURSE NOTES: Received pt from MICAELA ZAVALA. Pt is ALERT and orient x4. pt is in RA, No SOB or acute respiratory distress noted. pt has intact PICC JADE SL. Pt is eating breakfast. all needs attended, bed is locked and is in the lowest position. call light within easy reach. will continue to monitor.
--- NOTE | 2019-01-02 07:35 | NUR ---
HAND-OFF: Report given to Mar Bar.
[2019-01-02 08:00] VITALS: BP 123/75
--- NOTE | 2019-01-02 08:26 | General Progress Note ---
Assessment/Plan Problem List: (1) Abdominal pannus ICD Codes: E65 - Localized adiposity SNOMED: 3050391784696 (2) Peripheral edema ICD Codes: R60.9 - Edema, unspecified SNOMED: 824773640 (3) Abdominal wall cellulitis ICD Codes: L03.311 - Cellulitis of abdominal wall SNOMED: 45191296 (4) Leg pain ICD Codes: M79.606 - Pain in leg, unspecified SNOMED: 20057334 (5) COPD (chronic obstructive pulmonary disease) ICD Codes: J44.9 - Chronic obstructive pulmonary disease, unspecified SNOMED: 76233724 (6) Seizures ICD Codes: R56.9 - Unspecified convulsions SNOMED: 36053388 (7) Morbid obesity ICD Codes: E66.01 - Morbid (severe) obesity due to excess calories SNOMED: 813460399 (8) Cerebrovascular accident ICD Codes: I63.9 - Cerebral infarction, unspecified SNOMED: 893029880 (9) Left-sided weakness ICD Codes: R53.1 - Weakness SNOMED: 419239677 Status: stable, progressing Assessment/Plan: pt diet neuro f/u wound care abx pain control cbc bmp am dc to snf if clear Subjective Constitutional: Reports: weakness Allergies: Coded Allergies: ASPIRIN (Verified Allergy, Unknown, 07/14/18) KETOROLAC (Verified Allergy, Unknown, 07/14/18) PENICILLINS (Verified Allergy, Unknown, 12/23/18) tolerated Ancef on 08/2018 All Systems: reviewed and negative except above Subjective sleepy calm Objective Last 24 Hour Vital Signs Date Time Temp Pulse Resp B/P (MAP) Pulse Ox O2 Delivery O2 Flow Rate FiO2 01/02/19 08:00 98.6 88 20 123/75 (91) 95 01/02/19 05:59 84 20 96 Nasal Cannula 2.0 28 01/02/19 05:50 83 20 94 Room Air 21 01/02/19 04:00 98.8 92 20 120/71 (87) 94 01/01/19 21:00 Room Air 01/01/19 20:00 97.0 87 19 110/62 (78) 94 01/01/19 19:54 94 Room Air 21 01/01/19 19:11 98.3 01/01/19 16:00 98.3 88 20 132/75 (94) 94 01/01/19 15:28 86 20 94 Nasal Cannula 2.0 28 01/01/19 15:16 85 20 90 Room Air 21 01/01/19 12:00 98.1 97 20 153/92 (112) 95 01/01/19 09:30 99/56 01/01/19 09:00 Room Air Intake and Output 01/01/19 01/02/19 19:00 07:00 Intake Total 1495 ml 2100 ml Output Total 550 ml Balance 1495 ml 1550 ml Intake Oral 1440 ml 600 ml IV Total 55 ml Other 1500 ml Output Urine Total 550 ml # Voids 3 3 # Bowel Movements 1 Height (Feet): 5 Height (Inches): 10.00 Weight (Pounds): 494 General Appearance: lethargic EENT: normal ENT inspection Neck: normal alignment Cardiovascular: normal peripheral pulses, normal rate, regular rhythm Respiratory/Chest: chest wall non-tender, lungs clear, normal breath sounds Abdomen: normal bowel sounds, distended Extremities: normal inspection Edema: 1+ Arm (L), 1+ Arm (R), 1+ Leg (L), 1+ Leg (R), 1+ Pedal (L), 1+ Pedal ( R), 1+ Generalized Edema: trace edema Neurologic: responsive, motor weakness Skin: normal pigmentation, warm/dry Ernesto Nicole DO Jan 02, 2019 08:26
[2019-01-02] MEDS: DULoxetine 30mg cap ORAL SCH (09:27)
[2019-01-02] MEDS: Losartan 25mg tab ORAL SCH (09:28)
[2019-01-02] MEDS: Lyrica 50mg cap ORAL SCH ×3 (09:28→17:59)
[2019-01-02] MEDS: Heparin 5000 units/ml inj SUBQ SCH ×2 (09:34→20:49)
--- NOTE | 2019-01-02 10:34 | Infectious Diseases Prog Note ---
Assessment/Plan Assessment/Plan B/l Leg cellulitis and panniculitis- in the setting of chronic venous stasis L side weakness/spasticity- thought be 2ry to seizures- r/O CVA- no active infectious process at present (pt afebrile- doubt meningitis at this moment) Afebrile No leukocytosis -CXR: No acute findings CVA HTN bipolar disorder w/ psychotic features tobacco abuse anxiety disorder chronic pain CHF seizure disorder COPD morbid obesity Dm2 HTN SNF resident Plan: IV Dapto d# 8 ( pt Cr increased 30% will avoid Vanco) Would treat for 14 day ( End date 01/07/19) 12/25 sp Bactrim #4 and V Ancef #3 for cellulitis -Monitor CBC/CMP, temperatures -neuro f/u- plan for CT head, include neck as lump in back of neck; however pt did not fit on CT scan machine due to weight -aspiration precautions -wound care per hospital protocol -CK am Subjective Allergies: Coded Allergies: ASPIRIN (Verified Allergy, Unknown, 07/14/18) KETOROLAC (Verified Allergy, Unknown, 07/14/18) PENICILLINS (Verified Allergy, Unknown, 12/23/18) tolerated Ancef on 08/2018 Subjective afebrile no leukocytosis Objective Vital Signs Last 24 Hour Vital Signs Date Time Temp Pulse Resp B/P (MAP) Pulse Ox O2 Delivery O2 Flow Rate FiO2 01/02/19 09:28 123/75 01/02/19 08:05 95 Room Air 01/02/19 08:05 91 18 95 Room Air 01/02/19 08:00 98.6 88 20 123/75 (91) 95 01/02/19 05:59 84 20 96 Nasal Cannula 2.0 01/02/19 05:50 83 20 94 Room Air 01/02/19 04:00 98.8 92 20 120/71 (87) 94 01/01/19 21:00 Room Air 01/01/19 20:00 97.0 87 19 110/62 (78) 94 01/01/19 19:54 94 Room Air 01/01/19 19:11 98.3 01/01/19 16:00 98.3 88 20 132/75 (94) 94 01/01/19 15:28 86 20 94 Nasal Cannula 2.0 28 01/01/19 15:16 85 20 90 Room Air 21 01/01/19 12:00 98.1 97 20 153/92 (112) 95 Height (Feet): 5 Height (Inches): 10.00 Weight (Pounds): 494 Objective GENERAL: Calm in bed, oriented x3, in slight distress, secondary to weakness. CARDIOVASCULAR: No murmurs. LUNGS: Poor air exchange. ABDOMEN: Bowel sounds distant. EXTREMITIES: Show no cyanosis or clubbing. A +3 edema in bilateral lower extremity w/ warmth, erythema, superficial ulcers and TTP. Large pannus noted in the abdomen area w/ warmth, edema and erythema NEUROLOGIC: The patient moves all extremities, slightly weak. Microbiology Date/Time Source Procedure Growth Status 12/30/18 12:20 Sputum Gram Stain - Final Complete 12/30/18 12:20 Sputum Sputum Culture - Final NORMAL UPPER RESPIRATORY EDITH PRESENT Complete Current Medications Medications (Trade) Dose Ordered Sig/Luis Route PRN Reason Start Time Stop Time Status Last Admin Dose Admin Acetaminophen (Tylenol) 650 mg Q4H PRN ORAL fever 12/15/18 14:54 01/14/19 14:53 Albuterol/ Ipratropium (Albuterol/ Ipratropium) 3 ml Q4H PRN HHN Shortness of breath 12/30/18 19:00 01/04/19 18:59 01/02/19 05:50 Atorvastatin Calcium (Lipitor) 80 mg BEDTIME ORAL 12/15/18 21:00 01/14/19 20:59 01/01/19 21:53 Chlorhexidine Gluconate (Ruby-Hex 2%) 1 applic DAILY@2000 TOPIC 12/22/18 20:00 01/21/19 19:59 01/01/19 21:55 Clonidine HCl (Catapres Tab) 0.1 mg Q4H PRN ORAL For High Blood Pressure 12/15/18 14:56 01/14/19 14:55 Clopidogrel Bisulfate (Plavix) 75 mg DAILY ORAL 12/16/18 09:00 01/14/19 08:59 01/02/19 09:28 Daptomycin 900 mg/ Sodium Chloride 55 ml @ 110 mls/hr Q24H IV 12/25/18 14:00 01/07/19 13:59 01/01/19 14:38 Dextrose (Dextrose 50%) 25 ml Q30M PRN IV Hypoglycemia 12/15/18 15:15 01/13/19 23:44 Dextrose (Dextrose 50%) 50 ml Q30M PRN IV Hypoglycemia 12/15/18 15:15 01/13/19 23:44 Duloxetine HCl (Cymbalta) 30 mg DAILY ORAL 12/16/18 09:00 01/14/19 08:59 01/02/19 09:27 Furosemide (Lasix) 20 mg Q6HR IV 12/22/18 00:00 01/21/19 00:00 01/02/19 06:33 Gabapentin (Neurontin) 600 mg THREE TIMES A DAY ORAL 12/15/18 18:00 01/14/19 08:59 01/02/19 09:27 Heparin Sodium (Porcine) (Heparin 5000 units/ml) 5,000 units EVERY 12 HOURS SUBQ 12/15/18 21:00 01/14/19 08:59 01/02/19 09:34 Hydromorphone HCl (Dilaudid) 4 mg Q4H PRN IVP Breakthrough Pain 01/01/19 10:29 01/08/19 10:28 01/02/19 06:34 Levetiracetam (Keppra) 2,000 mg Q12HR ORAL 01/01/19 21:00 01/18/19 08:59 01/02/19 09:28 Levofloxacin (Levaquin) 500 mg Q24H ORAL 12/30/18 13:00 01/06/19 12:59 01/01/19 12:18 Losartan Potassium (Cozaar) 25 mg DAILY ORAL 12/29/18 13:45 01/28/19 13:44 01/02/19 09:28 Methadone HCl (Methadone HCl) 10 mg EVERY 8 HOURS ORAL 12/29/18 22:00 01/05/19 21:59 01/02/19 06:32 Nitroglycerin (Ntg) 0.4 mg Q5M X 3 DOSES PRN SL Prn Chest Pain 12/15/18 14:45 01/13/19 23:44 Ondansetron HCl (Zofran) 4 mg Q6H PRN IVP Nausea & Vomiting 12/15/18 14:55 01/14/19 14:54 12/17/18 10:19 Polyethylene Glycol (Miralax) 17 gm HSPRN PRN ORAL Constipation 12/15/18 14:55 01/14/19 14:54 Pregabalin (Lyrica) 100 mg THREE TIMES A DAY ORAL 12/26/18 09:00 01/19/19 22:59 01/02/19 09:28 Promethazine HCl/ Codeine (Phenergan with Codeine) 5 ml Q4H PRN ORAL For Cough 12/28/18 12:00 01/27/19 11:59 01/01/19 01:34 Trazodone HCl (Desyrel) 100 mg BEDTIME ORAL 12/15/18 21:00 01/14/19 20:59 01/01/19 21:54 Alexa Patterson M.D. Jan 02, 2019 10:34
--- NOTE | 2019-01-02 11:15 | Progress Note ---
DATE: 01/02/2019 SUBJECTIVE: This is a 53-year-old male patient, status post cerebrovascular accident. This patient has some anxiety, depression, worsened by stress of his medical illness. That is why, his attending has requested daily psychiatric consultation. MENTAL STATUS EXAMINATION: This is a 53-year-old male. His appearance is disheveled. Attitude, irritable and agitated. Affect, guarded and restricted. Intellect poor. Mood, depressed and anxious. Motor activity, psychomotor agitation. Attention span is poor. Orientation x2. Speech is low volume and slurred. Thought process, disorganized and illogical. Insight and judgment is poor. DIAGNOSIS: Major depressive disorder, mild, recurrent, without psychotic features. PLAN: Treat him with Cymbalta 30 mg daily, Neurontin 600 mg three times a day, and trazodone 100 mg at bedtime. Provide him with 20 minutes of cognitive behavioral therapy to help him identify his automatic negative thoughts, help him convert those negative thoughts to more positive thoughts, to reduce depression, anxiety, and mood lability and help him to have more adaptive behavioral pattern. A 20 minutes of cognitive behavioral therapy provided. Laney Mcghee M.D. DR: GUTIERREZ JOB#: [id number] CC:
--- NOTE | 2019-01-02 11:59 | Nephrology Progress Note ---
Assessment/Plan Problem List: (1) Hyponatremia (2) Morbid obesity (3) COPD (chronic obstructive pulmonary disease) Plan Mag IV as needed Mag PO TID Low Na resolved cont per consultants Subjective ROS Limited/Unobtainable: No Objective Objective Last 24 Hour Vital Signs Date Time Temp Pulse Resp B/P (MAP) Pulse Ox O2 Delivery O2 Flow Rate FiO2 01/02/19 11:05 98.6 01/02/19 09:28 123/75 01/02/19 09:00 Room Air 01/02/19 08:05 95 Room Air 21 01/02/19 08:05 91 18 95 Room Air 01/02/19 08:00 98.6 88 20 123/75 (91) 95 01/02/19 05:59 84 20 96 Nasal Cannula 2.0 28 01/02/19 05:50 83 20 94 Room Air 01/02/19 04:00 98.8 92 20 120/71 (87) 94 01/01/19 21:00 Room Air 01/01/19 20:00 97.0 87 19 110/62 (78) 94 01/01/19 19:54 94 Room Air 01/01/19 16:00 98.3 88 20 132/75 (94) 94 01/01/19 15:28 86 20 94 Nasal Cannula 2.0 01/01/19 15:16 85 20 90 Room Air 01/01/19 12:00 98.1 97 20 153/92 (112) 95 Intake and Output 01/01/19 01/02/19 19:00 07:00 Intake Total 1495 ml 2100 ml Output Total 550 ml Balance 1495 ml 1550 ml Intake Oral 1440 ml 600 ml IV Total 55 ml Other 1500 ml Output Urine Total 550 ml # Voids 3 3 # Bowel Movements 1 Height (Feet): 5 Height (Inches): 10.00 Weight (Pounds): 494 General Appearance: no apparent distress Cardiovascular: normal rate Respiratory/Chest: decreased breath sounds Abdomen: other - obese Objective no change Devante Taylor MD Jan 02, 2019 11:59
[2019-01-02 12:00] VITALS: BP 114/56
[2019-01-02] MEDS: Levofloxacin 500mg tab ORAL SCH (12:04)
--- NOTE | 2019-01-02 12:15 | NUR ---
NURSE NOTES: pt had chest pain given NITROGLYCERIN SUBLINGUAL x2 between 5 min and chest pain relief. Dr BAUM is aware. will continue to monitor.
--- NOTE | 2019-01-02 14:01 | NUR ---
NURSE NOTES: pt again complained chest pain, SOB and sweating, Dr PRUITT notified and ordered stat EKG and TROPONIN, noted and carried out. RT notified to to breathing treatment. will continue top monitor.
[2019-01-02] MEDS: NS IV SCH (14:11)
[2019-01-02] MEDS: DAPTOMYCIN IV SCH (14:11)
[2019-01-02 14:41] LABS: BASOPHILS % (AUTO) 0.6 % (0.0-2.0); HEMATOCRIT 31.3 % (42.0-52.0); HEMOGLOBIN 10.2 G/DL (14.2-18.0); LYMPHOCYTES % (AUTO) 32.6 % (20.0-45.0); MEAN CORPUSCULAR VOLUME 92 FL (80-99); MONOCYTES % (AUTO) 8.4 % (1.0-10.0); NEUTROPHILS % (AUTO) 55.4 % (45.0-75.0); PLATELET COUNT 205 K/UL (150-450); RED BLOOD COUNT 3.39 M/UL (4.70-6.10); RED CELL DISTRIBUTION WIDTH 13.5 % (11.6-14.8); WHITE BLOOD COUNT 6.7 K/UL (4.8-10.8)
[2019-01-02 14:55] LABS: ANION GAP 10 mmol/L (5-15); BLOOD UREA NITROGEN 19 mg/dL (7-18); CARBON DIOXIDE 30 MMOL/L (21-32); CHLORIDE 104 MMOL/L (98-107); CREATININE 1.1 MG/DL (0.55-1.30); POTASSIUM 3.3 MMOL/L (3.5-5.1); SODIUM 144 MMOL/L (136-145)
--- NOTE | 2019-01-02 15:59 | NUR ---
BUILDING ENGINEERHOSPITALIST PHYSICIAN SI:LUMBAR SPONDYLOSIS VS: BP 99/60, P 90, T 98.8, RR 20, SpO2 93 RBC 3.39, H&H 10.2/31.3, BUN 19 IS:NITROGLYCERIN 0.4mg ALBUTEROL 3ml HHN K-DUR 40meq MAGNESIUM SULFATE 100ml IVPB KEPPRA 2,000mg CYMBALTA 30mg PLAVIX 75mg HEPARIN SUBQ LYRICA 100mg GABAPENTIN 600mg DAPTOMYCIN 110ml IV MED/SURG STATUS
[2019-01-02 16:00] VITALS: BP 121/66
--- NOTE | 2019-01-02 16:00 | NUR ---
NURSE NOTES: called Dr PRUITT left massage regarding the result of EKG and troponin. and called JOHN QUIGLEY and left massage the result of EEG. will continue to monitor.
[2019-01-02] MEDS: Magnesium Oxide 400mg tab ORAL SCH (17:58)
--- NOTE | 2019-01-02 18:26 | NUR ---
NURSE NOTES: Dr NAVARRO is notified about K 3.3, will continue to monitor.
--- NOTE | 2019-01-02 19:30 | NUR ---
HAND-OFF: Report given to MICAELA ERVIN. Endorsed to F/U with Dr NAVARRO for K.
[2019-01-02 20:00] VITALS: BP 99/60
[2019-01-02] MEDS: Dyna-Hex 2% Top Sol 2oz TOPIC SCH (20:39)
[2019-01-02] MEDS: TraZODone 100mg tab ORAL SCH (20:40)
[2019-01-02] MEDS: Atorvastatin 80mg tab ORAL SCH (20:41)
--- NOTE | 2019-01-02 23:55 | Neurology Progress Note ---
Interim History Interim History ROS Limited/Unobtainable: No Complaints: Seizures/ Weakness Events: This visit was performed on January 02, [address] Amador Brewster Interim History EEG done today, report pending Objective Physical Exam Last Vital Signs Date Time Temp Pulse Resp B/P (MAP) Pulse Ox O2 Delivery O2 Flow Rate FiO2 01/02/19 21:00 Room Air 01/02/19 20:00 98.6 90 20 99/60 (73) 93 01/02/19 19:26 21 01/02/19 12:55 2.0 Laboratory Tests Test 01/02/19 14:20 01/02/19 14:25 White Blood Count 6.7 K/UL (4.8-10.8) Red Blood Count 3.39 M/UL (4.70-6.10) L Hemoglobin 10.2 G/DL (14.2-18.0) L Hematocrit 31.3 % (42.0-52.0) L Mean Corpuscular Volume 92 FL (80-99) Mean Corpuscular Hemoglobin 30.0 PG (27.0-31.0) Mean Corpuscular Hemoglobin Concent 32.5 G/DL (32.0-36.0) Red Cell Distribution Width 13.5 % (11.6-14.8) Platelet Count 205 K/UL (150-450) Mean Platelet Volume 5.1 FL (6.5-10.1) L Neutrophils (%) (Auto) 55.4 % (45.0-75.0) Lymphocytes (%) (Auto) 32.6 % (20.0-45.0) Monocytes (%) (Auto) 8.4 % (1.0-10.0) Eosinophils (%) (Auto) 3.0 % (0.0-3.0) Basophils (%) (Auto) 0.6 % (0.0-2.0) Sodium Level 144 MMOL/L (136-145) Potassium Level 3.3 MMOL/L (3.5-5.1) L Chloride Level 104 MMOL/L (98-107) Carbon Dioxide Level 30 MMOL/L (21-32) Anion Gap 10 mmol/L (5-15) Blood Urea Nitrogen 19 mg/dL (7-18) H Creatinine 1.1 MG/DL (0.55-1.30) Estimat Glomerular Filtration Rate > 60 mL/min (>60) Glucose Level 107 MG/DL (74-106) H Calcium Level 7.0 MG/DL (8.5-10.1) L Phosphorus Level 3.5 MG/DL (2.5-4.9) Magnesium Level 1.5 MG/DL (1.8-2.4) L Troponin I 0.001 ng/mL (0.000-0.056) General: well developed, other - Morbidly obese Head: normocophalic Neck: no rigidity EENT: benign Neurologic Exam Mental Status: awake, alert, oriented x4, normal cognition, good mathematical skills, normal recent memory, normal remote memory, preserved visuospatial function Speech: normal speech, no dysarthia Language: normal language, no aphasia Cranial Nerve II: fundus normal, visual bonilla, no papilledema Cranial Nerves III, IV, : PERRLA, EOMI, pupils Cranial Nerve V: normal facial sensations, temporales function normal, masseters function normal, pterygoids function normal Cranial Nerve VII: normal facial expressions, other Cranial Nerve VIII: normal hearing, no nystagmus Cranial Nerve IX: normal palate elevation, gag response Cranial Nerve X: no voice hoarseness Cranial Nerve XI: SCM symmetric, trapezii function normal Cranial Nerve XII: tongue midline, no tongue atrophy/fasciculations Motor System: normal muscle tone, no involuntary movement, no muscle wasting Sensory: normal pinprick, normal light touch, normal position sense, normal graphesthesia Coordination: normal heel to villarreal bilaterally, negative Romberg test Deep Tendon Reflexes: 1+ bicep (L), 1+ bicep (R), 1+ tricep (L), 1+ tricep (R) , 1+ brachioradialis (L), 1+ brachioradialis (R), 1+ knee (L), 1+ knee (R), 1+ ankle (L), 1+ ankle (R) Reflexes: flexor plantar (L), flexor plantar (R); extensor plantar (L), extensor plantar (R) Stance: other - Broad based Gait: stable Objective Left arm, predominantly hand weakness at this time. Alert and oriented Reporting seeing a rat, but thinks he is "seeing things" . Denies any thoughts of self harm or harm to others. Ambulatory with cellulitis persisting on BLE He does not have proximal left arm weakness at this time, mild facial weakness, tongue deviated on exam Impression/Recommendations Problems: (1) Seizures Assessment & Plan: Keppra 1500mg BID PO Maintain SBP<140 Q4 Hour Neuro Checks Ativan 2mg PRN for seizure activity CT Head w/o contrast when able to rule out CVA - also for consideration of MRI if CT negative. - low suspicion of CVA due to normotensive status without risk factors of elevated BP/ HgBA1c or thyroid dysfunction. Na 135-145 Continue pain management - Lyrica 100mg TID - Continue Gabapentin 600mg TID Intense PT recommended (2) Morbid obesity (3) COPD (chronic obstructive pulmonary disease) (4) Uncontrolled seizures (5) Left-sided weakness Assessment & Plan: No seizure activity captured on EEG but mild to moderate degree of encephalopathy seen. (6) Knee osteomyelits, right Status: stable, progressing Recommendations Q4 hour Neuro Obs - NO NIGHTTIME OBS if stable Prevent delirium Maintain regular sleep schedule and reduce nighttime activities such as observations (if unnecessary) EEG Pending, Keppra dose increased to 2g BID , some increased sleepiness expected . Will consider addition of oral Lamictal Vicky Taylor N.P. Jan 02, 2019 23:55
--- NOTE | 2019-01-02 23:59 | Cardiology Progress Note ---
Assessment/Plan Assessment/Plan 1. Possibly non-cardiac chest pain, 12 lead ECG shows no evidence of ischemia, first trop I level is normal. 2. Morbid obesity with panniculitis, normal LV systolic and diastolic function per recent echo, clear for "removal of pannus". 3. Chronic venous insufficiency, off amlodipine. 4. HTN, well controlled, continue losartan. 5. COPD 6. Seizure D/O 7. Hypomagnesemia, Mg level still low at 1.5, one gram of Mg sulfate given. Subjective Subjective Had chest pain earlier which did not quite respond to NTG SL tablets. 12 lead ECG and Trop I were ordered. No cardiac events. Objective Last 24 Hour Vital Signs Date Time Temp Pulse Resp B/P (MAP) Pulse Ox O2 Delivery O2 Flow Rate FiO2 01/02/19 21:00 Room Air 01/02/19 20:00 98.6 90 20 99/60 (73) 93 01/02/19 19:26 94 Room Air 01/02/19 16:02 97.9 01/02/19 16:00 98.8 77 20 121/66 (84) 96 01/02/19 12:55 89 20 96 Nasal Cannula 2.0 28 01/02/19 12:45 88 20 95 Room Air 01/02/19 12:00 97.9 77 20 114/56 (75) 93 01/02/19 11:59 114/56 01/02/19 09:28 123/75 01/02/19 09:00 Room Air 01/02/19 08:05 95 Room Air 21 01/02/19 08:05 91 18 95 Room Air 01/02/19 08:00 98.6 88 20 123/75 (91) 95 01/02/19 05:59 84 20 96 Nasal Cannula 2.0 28 01/02/19 05:50 83 20 94 Room Air 01/02/19 04:00 98.8 92 20 120/71 (87) 94 Intake and Output 01/01/19 01/02/19 19:00 07:00 Intake Total 1495 ml 2100 ml Output Total 550 ml Balance 1495 ml 1550 ml Intake Oral 1440 ml 600 ml IV Total 55 ml Other 1500 ml Output Urine Total 550 ml # Voids 3 3 # Bowel Movements 1 2D Echo: Normal LV systolic function, RVSP 34 mmHg, RAP elevated at 15 mmHg Laboratory Tests Test 01/02/19 14:20 01/02/19 14:25 White Blood Count 6.7 K/UL (4.8-10.8) Red Blood Count 3.39 M/UL (4.70-6.10) L Hemoglobin 10.2 G/DL (14.2-18.0) L Hematocrit 31.3 % (42.0-52.0) L Mean Corpuscular Volume 92 FL (80-99) Mean Corpuscular Hemoglobin 30.0 PG (27.0-31.0) Mean Corpuscular Hemoglobin Concent 32.5 G/DL (32.0-36.0) Red Cell Distribution Width 13.5 % (11.6-14.8) Platelet Count 205 K/UL (150-450) Mean Platelet Volume 5.1 FL (6.5-10.1) L Neutrophils (%) (Auto) 55.4 % (45.0-75.0) Lymphocytes (%) (Auto) 32.6 % (20.0-45.0) Monocytes (%) (Auto) 8.4 % (1.0-10.0) Eosinophils (%) (Auto) 3.0 % (0.0-3.0) Basophils (%) (Auto) 0.6 % (0.0-2.0) Sodium Level 144 MMOL/L (136-145) Potassium Level 3.3 MMOL/L (3.5-5.1) L Chloride Level 104 MMOL/L (98-107) Carbon Dioxide Level 30 MMOL/L (21-32) Anion Gap 10 mmol/L (5-15) Blood Urea Nitrogen 19 mg/dL (7-18) H Creatinine 1.1 MG/DL (0.55-1.30) Estimat Glomerular Filtration Rate > 60 mL/min (>60) Glucose Level 107 MG/DL (74-106) H Calcium Level 7.0 MG/DL (8.5-10.1) L Phosphorus Level 3.5 MG/DL (2.5-4.9) Magnesium Level 1.5 MG/DL (1.8-2.4) L Troponin I 0.001 ng/mL (0.000-0.056) Objective HEENT: Atraumatic and normocephalic. Anicteric. Pupils are equal, round, and reactive to light and accommodation. NECK: JVP cannot be assessed due to obesity. No carotid bruit. CARDIOVASCULAR: Normal S1, S2. Regular rate and rhythm. No murmurs, gallops, or rubs. PMI is at fourth intercostal space at the midclavicular line. LUNGS: Clear to auscultation bilaterally. ABDOMEN: Distended due to pannus formation, cannot palpate hepatosplenomegaly. Positive bowel sounds. EXTREMITIES: No lower extremity edema, clubbing or cyanosis. Carlos Martins MD Jan 02, 2019 23:59
[2019-01-03 04:00] VITALS: BP 109/61
[2019-01-03 07:01] LABS: BASOPHILS % (AUTO) 0.7 % (0.0-2.0); HEMATOCRIT 34.9 % (42.0-52.0); LYMPHOCYTES % (AUTO) 22.3 % (20.0-45.0); MEAN CORPUSCULAR VOLUME 89 FL (80-99); PLATELET COUNT 226 K/UL (150-450); RED BLOOD COUNT 3.92 M/UL (4.70-6.10); RED CELL DISTRIBUTION WIDTH 13.2 % (11.6-14.8); WHITE BLOOD COUNT 6.3 K/UL (4.8-10.8)
[2019-01-03 07:19] LABS: CREATINE KINASE 181 U/L (26-308)
[2019-01-03 07:25] LABS: ALANINE AMINOTRANSFERASE 26 U/L (12-78); ALBUMIN 2.6 G/DL (3.4-5.0); ALBUMIN/GLOBULIN RATIO 0.6 (1.0-2.7); ALKALINE PHOSPHATASE 134 U/L (46-116); ANION GAP 3 mmol/L (5-15); ASPARTATE AMINO TRANSFERASE 33 U/L (15-37); BILIRUBIN,TOTAL 0.3 MG/DL (0.2-1.0); BLOOD UREA NITROGEN 22 mg/dL (7-18); CALCIUM 8.8 MG/DL (8.5-10.1); CARBON DIOXIDE 35 MMOL/L (21-32); CHLORIDE 100 MMOL/L (98-107); CREATININE 1.1 MG/DL (0.55-1.30); POTASSIUM 3.7 MMOL/L (3.5-5.1); SODIUM 138 MMOL/L (136-145)
--- NOTE | 2019-01-03 07:30 | NUR ---
HAND-OFF: Report given to SHIRA HINOJOSA.
--- NOTE | 2019-01-03 07:37 | NUR ---
nurse notes received patient sitting on the egde of the bed eating breakfast, patient awake, alert, oriented x4, no sign of distress, PICC line right upper arm dressing clean dry and intact, on fall precaution observed and maintained, plen of care was discussed verbalize understanding 4 P's in progress gio alicea
[2019-01-03 08:20] VITALS: BP 102/56
[2019-01-03] MEDS: DULoxetine 30mg cap ORAL SCH (08:31)
[2019-01-03] MEDS: Lyrica 50mg cap ORAL SCH ×3 (08:31→17:32)
[2019-01-03] MEDS: Magnesium Oxide 400mg tab ORAL SCH ×3 (08:33→17:32)
[2019-01-03] MEDS: Heparin 5000 units/ml inj SUBQ SCH ×2 (08:37→21:32)
[2019-01-03] MEDS: Losartan 25mg tab ORAL SCH (08:39)
--- NOTE | 2019-01-03 10:10 | NUR ---
nurse notes dressing on the bilateral lower extremities done, tolerated well, encouraged patient to elevate both lower legs on pillow, patient very non compliant gio alicea
[2019-01-03 11:37] VITALS: BP 113/65
[2019-01-03] MEDS: Levofloxacin 500mg tab ORAL SCH (12:13)
[2019-01-03] MEDS: DAPTOMYCIN IV SCH (13:48)
[2019-01-03] MEDS: NS IV SCH (13:48)
--- NOTE | 2019-01-03 14:44 | Nephrology Progress Note ---
Assessment/Plan Problem List: (1) Hyponatremia (2) Morbid obesity (3) COPD (chronic obstructive pulmonary disease) Plan Mag IV as needed Mag PO TID Low Na resolved cont per consultants Subjective ROS Limited/Unobtainable: No Constitutional: Reports: malaise Objective Objective Last 24 Hour Vital Signs Date Time Temp Pulse Resp B/P (MAP) Pulse Ox O2 Delivery O2 Flow Rate FiO2 01/03/19 11:37 97.9 95 20 113/65 (81) 90 01/03/19 09:26 86 18 94 Room Air 21 01/03/19 08:39 109/61 01/03/19 08:20 97.9 85 16 102/56 (71) 92 01/03/19 08:10 Room Air 01/03/19 06:13 98.6 01/03/19 04:00 98.2 88 20 109/61 (77) 94 01/02/19 21:00 Room Air 01/02/19 20:00 98.6 90 20 99/60 (73) 93 01/02/19 19:26 94 Room Air 21 01/02/19 16:00 98.8 77 20 121/66 (84) 96 Intake and Output 01/02/19 01/03/19 19:00 07:00 Intake Total 2155 ml 3250 ml Balance 2155 ml 3250 ml Intake Oral 1800 ml 2400 ml IV Total 355 ml Other 850 ml # Voids 8 8 Laboratory Tests 01/03/19 06:30: White Blood Count 6.3, Red Blood Count 3.92L, Hemoglobin 12.0L, Hematocrit 34.9L , Mean Corpuscular Volume 89, Mean Corpuscular Hemoglobin 30.7, Mean Corpuscular Hemoglobin Concent 34.4, Red Cell Distribution Width 13.2, Platelet Count 226, Mean Platelet Volume 5.0L, Neutrophils (%) (Auto) 67.0, Lymphocytes ( %) (Auto) 22.3, Monocytes (%) (Auto) 7.0, Eosinophils (%) (Auto) 3.0, Basophils (%) (Auto) 0.7, Sodium Level 138, Potassium Level 3.7, Chloride Level 100, Carbon Dioxide Level 35H, Anion Gap 3L, Blood Urea Nitrogen 22H, Creatinine 1.1 , Estimat Glomerular Filtration Rate > 60, Glucose Level 93, Calcium Level 8.8# , Total Bilirubin 0.3, Aspartate Amino Transf (AST/SGOT) 33, Alanine Aminotransferase (ALT/SGPT) 26, Alkaline Phosphatase 134H, Total Creatine Kinase 181, Pro-B-Type Natriuretic Peptide 73, Total Protein 6.7, Albumin 2.6L, Globulin 4.1, Albumin/Globulin Ratio 0.6L Height (Feet): 5 Height (Inches): 10.00 Weight (Pounds): 494 Cardiovascular: normal rate Respiratory/Chest: decreased breath sounds Extremities: other - edematous Objective no change Devante Taylor MD Jan 03, 2019 14:44
--- NOTE | 2019-01-03 14:52 | Pulmonology Progress Note ---
Assessment/Plan Problems: (1) Morbid obesity (2) Peripheral edema (3) Cellulitis (4) Seizures (5) Cerebrovascular accident (6) Left-sided weakness (7) COPD (chronic obstructive pulmonary disease) (8) Right heart failure (9) Lumbar spondylosis (10) ADALBERTO (obstructive sleep apnea) Assessment/Plan sputum negative cxr 01/01 showed no acute process coughing up dark/ brown phlegm. add levofloxacin all meds /notes reviewed pt/ot increase dialudid to 4 mg and add Methadone 10Q8 respiratory treatment titrate fio2 to sat of 92% dvt prophylaxis watch bun/creatinine, repeat BNP on lasix q 6 hours. Subjective ROS Limited/Unobtainable: No Constitutional: Reports: no symptoms HEENT: Repors: no symptoms Respiratory: Reports: no symptoms Allergies: Coded Allergies: ASPIRIN (Verified Allergy, Unknown, 07/14/18) KETOROLAC (Verified Allergy, Unknown, 07/14/18) PENICILLINS (Verified Allergy, Unknown, 12/23/18) tolerated Ancef on 08/2018 Objective Last 24 Hour Vital Signs Date Time Temp Pulse Resp B/P (MAP) Pulse Ox O2 Delivery O2 Flow Rate FiO2 01/03/19 11:37 97.9 95 20 113/65 (81) 90 01/03/19 09:26 86 18 94 Room Air 21 01/03/19 08:39 109/61 01/03/19 08:20 97.9 85 16 102/56 (71) 92 01/03/19 08:10 Room Air 01/03/19 06:13 98.6 01/03/19 04:00 98.2 88 20 109/61 (77) 94 01/02/19 21:00 Room Air 01/02/19 20:00 98.6 90 20 99/60 (73) 93 01/02/19 19:26 94 Room Air 21 01/02/19 16:00 98.8 77 20 121/66 (84) 96 Intake and Output 01/02/19 01/03/19 19:00 07:00 Intake Total 2155 ml 3250 ml Balance 2155 ml 3250 ml Intake Oral 1800 ml 2400 ml IV Total 355 ml Other 850 ml # Voids 8 8 Objective HEENT: normocephalic, atraumatic Respiratory/Chest: chest wall non-tender, lungs clear Cardiovascular: normal peripheral pulses, normal rate Abdomen: normal bowel sounds, no organomegaly, massive fat on abdomen Extremities: no cyanosis Skin: no lesions Laboratory Tests 01/03/19 06:30: White Blood Count 6.3, Red Blood Count 3.92L, Hemoglobin 12.0L, Hematocrit 34.9L , Mean Corpuscular Volume 89, Mean Corpuscular Hemoglobin 30.7, Mean Corpuscular Hemoglobin Concent 34.4, Red Cell Distribution Width 13.2, Platelet Count 226, Mean Platelet Volume 5.0L, Neutrophils (%) (Auto) 67.0, Lymphocytes ( %) (Auto) 22.3, Monocytes (%) (Auto) 7.0, Eosinophils (%) (Auto) 3.0, Basophils (%) (Auto) 0.7, Sodium Level 138, Potassium Level 3.7, Chloride Level 100, Carbon Dioxide Level 35H, Anion Gap 3L, Blood Urea Nitrogen 22H, Creatinine 1.1 , Estimat Glomerular Filtration Rate > 60, Glucose Level 93, Calcium Level 8.8# , Total Bilirubin 0.3, Aspartate Amino Transf (AST/SGOT) 33, Alanine Aminotransferase (ALT/SGPT) 26, Alkaline Phosphatase 134H, Total Creatine Kinase 181, Pro-B-Type Natriuretic Peptide 73, Total Protein 6.7, Albumin 2.6L, Globulin 4.1, Albumin/Globulin Ratio 0.6L Current Medications Medications (Trade) Dose Ordered Sig/Luis Route PRN Reason Start Time Stop Time Status Last Admin Dose Admin Acetaminophen (Tylenol) 650 mg Q4H PRN ORAL fever 12/15/18 14:54 01/14/19 14:53 Albuterol/ Ipratropium (Albuterol/ Ipratropium) 3 ml Q4H PRN HHN Shortness of breath 12/30/18 19:00 01/04/19 18:59 01/02/19 12:45 Atorvastatin Calcium (Lipitor) 80 mg BEDTIME ORAL 12/15/18 21:00 01/14/19 20:59 01/02/19 20:41 Chlorhexidine Gluconate (Ruby-Hex 2%) 1 applic DAILY@2000 TOPIC 12/22/18 20:00 01/21/19 19:59 01/02/19 20:39 Clonidine HCl (Catapres Tab) 0.1 mg Q4H PRN ORAL For High Blood Pressure 12/15/18 14:56 01/14/19 14:55 Clopidogrel Bisulfate (Plavix) 75 mg DAILY ORAL 12/16/18 09:00 01/14/19 08:59 01/03/19 08:32 Daptomycin 900 mg/ Sodium Chloride 55 ml @ 110 mls/hr Q24H IV 12/25/18 14:00 01/07/19 13:59 01/03/19 13:48 Dextrose (Dextrose 50%) 25 ml Q30M PRN IV Hypoglycemia 12/15/18 15:15 01/13/19 23:44 Dextrose (Dextrose 50%) 50 ml Q30M PRN IV Hypoglycemia 12/15/18 15:15 01/13/19 23:44 Duloxetine HCl (Cymbalta) 30 mg DAILY ORAL 12/16/18 09:00 01/14/19 08:59 01/03/19 08:31 Furosemide (Lasix) 20 mg Q6HR IV 12/22/18 00:00 01/21/19 00:00 01/03/19 12:14 Gabapentin (Neurontin) 600 mg THREE TIMES A DAY ORAL 12/15/18 18:00 01/14/19 08:59 01/03/19 12:13 Heparin Sodium (Porcine) (Heparin 5000 units/ml) 5,000 units EVERY 12 HOURS SUBQ 12/15/18 21:00 01/14/19 08:59 01/03/19 08:37 Hydromorphone HCl (Dilaudid) 4 mg Q4H PRN IVP Breakthrough Pain 01/01/19 10:29 01/08/19 10:28 01/03/19 13:36 Levetiracetam (Keppra) 2,000 mg Q12HR ORAL 01/01/19 21:00 01/18/19 08:59 01/03/19 08:31 Levofloxacin (Levaquin) 500 mg Q24H ORAL 12/30/18 13:00 01/06/19 12:59 01/03/19 12:13 Losartan Potassium (Cozaar) 25 mg DAILY ORAL 12/29/18 13:45 01/28/19 13:44 01/02/19 09:28 Magnesium Oxide (Mag-Ox 400mg) 800 mg THREE TIMES A DAY ORAL 01/02/19 18:00 02/01/19 17:59 01/03/19 12:13 Methadone HCl (Methadone HCl) 10 mg EVERY 8 HOURS ORAL 12/29/18 22:00 01/05/19 21:59 01/03/19 13:36 Nitroglycerin (Ntg) 0.4 mg Q5M X 3 DOSES PRN SL Prn Chest Pain 12/15/18 14:45 01/13/19 23:44 01/02/19 11:59 Ondansetron HCl (Zofran) 4 mg Q6H PRN IVP Nausea & Vomiting 12/15/18 14:55 01/14/19 14:54 12/17/18 10:19 Polyethylene Glycol (Miralax) 17 gm HSPRN PRN ORAL Constipation 12/15/18 14:55 01/14/19 14:54 Pregabalin (Lyrica) 100 mg THREE TIMES A DAY ORAL 12/26/18 09:00 01/19/19 22:59 01/03/19 12:13 Promethazine HCl/ Codeine (Phenergan with Codeine) 5 ml Q4H PRN ORAL For Cough 12/28/18 12:00 01/27/19 11:59 01/01/19 01:34 Trazodone HCl (Desyrel) 100 mg BEDTIME ORAL 12/15/18 21:00 01/14/19 20:59 01/02/19 20:40 Bill Dixon MD Jan 03, 2019 14:52
[2019-01-03 15:43] VITALS: BP 106/76
--- NOTE | 2019-01-03 16:15 | Electroencephalogram ---
DATE OF PROCEDURE: 01/02/2019 REQUESTING PHYSICIAN: Amador Brewster M.D. HISTORY: This EEG was performed on a 53-year-old gentleman with a history of morbid obesity, seizures, and an altered mental state. The purpose of this EEG was to evaluate the patient for the degree and type of cerebral dysfunction and to exclude ongoing ictal or interictal phenomena. TECHNICAL NOTE: This EEG was performed on a [employer] Unit with electrodes placed on the scalp according to the International 10-20 system. [id number] and [id number]-[id number] montages were used. The EEG was technically satisfactory and was performed while the patient was in awake, drowsy, and sleep states. OBSERVATIONS: In the reportedly awake state, the background activity consisted of 7-7.5 Hz theta with some intermixed 8 Hz alpha frequencies. Drowsiness was characterized by slowing of the background in the 4-4.5 Hz theta range with intermixed delta frequencies. Stage II sleep was characterized by further slowing of the background in the delta and theta range, the presence of vertex waves, and 12-14 Hz sleep spindles. No definite focal abnormalities or epileptiform discharges were seen. IMPRESSION: This is an abnormal EEG characterized by slowing of the background in the 7-7.5 Hz theta range with some intermixed alpha frequencies seen during wakefulness. COMMENT: This study is consistent with an encephalopathy of a mild degree. Clinical correlation is recommended. Kar Soriano M.D., M.S.P.H. DR: Staci JOB#: [id number] [facility]NING HOSPITALLamberto
--- NOTE | 2019-01-03 16:26 | NUR ---
NETWORK ADMINISTRATORPALEOLOGIST SI:HYPONATREMIA VS: BP 102/56, P 85, T 97.9, RR 16, SpO2 92 RBC 3.92, H&H 12.0/34.9, BUN 22 IS:NITROGLYCERIN 0.4mg DESYREL 100mg LIPITOR 80mg ALBUTEROL 3ml HHN K-DUR 40meq MAGNESIUM SULFATE 100ml IVPB KEPPRA 2,000mg CYMBALTA 30mg PLAVIX 75mg HEPARIN SUBQ LYRICA 100mg GABAPENTIN 600mg DAPTOMYCIN 110ml IV MED/SURG STATUS
--- NOTE | 2019-01-03 17:28 | Neurology Progress Note ---
Interim History Interim History ROS Limited/Unobtainable: No Complaints: Seizures/ Weakness Events: This visit was performed on January 03, [address] Amador Brewster Objective Physical Exam Last Vital Signs Date Time Temp Pulse Resp B/P (MAP) Pulse Ox O2 Delivery O2 Flow Rate FiO2 01/03/19 15:43 98.7 105 20 106/76 (86) 96 01/03/19 09:26 Room Air 21 01/02/19 12:55 2.0 Laboratory Tests Test 01/03/19 06:30 White Blood Count 6.3 K/UL (4.8-10.8) Red Blood Count 3.92 M/UL (4.70-6.10) L Hemoglobin 12.0 G/DL (14.2-18.0) L Hematocrit 34.9 % (42.0-52.0) L Mean Corpuscular Volume 89 FL (80-99) Mean Corpuscular Hemoglobin 30.7 PG (27.0-31.0) Mean Corpuscular Hemoglobin Concent 34.4 G/DL (32.0-36.0) Red Cell Distribution Width 13.2 % (11.6-14.8) Platelet Count 226 K/UL (150-450) Mean Platelet Volume 5.0 FL (6.5-10.1) L Neutrophils (%) (Auto) 67.0 % (45.0-75.0) Lymphocytes (%) (Auto) 22.3 % (20.0-45.0) Monocytes (%) (Auto) 7.0 % (1.0-10.0) Eosinophils (%) (Auto) 3.0 % (0.0-3.0) Basophils (%) (Auto) 0.7 % (0.0-2.0) Sodium Level 138 MMOL/L (136-145) Potassium Level 3.7 MMOL/L (3.5-5.1) Chloride Level 100 MMOL/L (98-107) Carbon Dioxide Level 35 MMOL/L (21-32) H Anion Gap 3 mmol/L (5-15) L Blood Urea Nitrogen 22 mg/dL (7-18) H Creatinine 1.1 MG/DL (0.55-1.30) Estimat Glomerular Filtration Rate > 60 mL/min (>60) Glucose Level 93 MG/DL (74-106) Calcium Level 8.8 MG/DL (8.5-10.1) # Total Bilirubin 0.3 MG/DL (0.2-1.0) Aspartate Amino Transf (AST/SGOT) 33 U/L (15-37) Alanine Aminotransferase (ALT/SGPT) 26 U/L (12-78) Alkaline Phosphatase 134 U/L (46-116) H Total Creatine Kinase 181 U/L (26-308) Pro-B-Type Natriuretic Peptide 73 pg/mL (0-125) Total Protein 6.7 G/DL (6.4-8.2) Albumin 2.6 G/DL (3.4-5.0) L Globulin 4.1 g/dL Albumin/Globulin Ratio 0.6 (1.0-2.7) L General: well developed, other - Morbidly obese Head: normocophalic Neck: no rigidity EENT: benign Neurologic Exam Mental Status: awake, alert, oriented x4, normal cognition, good mathematical skills, normal recent memory, normal remote memory, preserved visuospatial function Speech: normal speech, no dysarthia Language: normal language, no aphasia Cranial Nerve II: fundus normal, visual bonilla, no papilledema Cranial Nerves III, IV, : PERRLA, EOMI, pupils Cranial Nerve V: normal facial sensations, temporales function normal, masseters function normal, pterygoids function normal Cranial Nerve VII: normal facial expressions, other Cranial Nerve VIII: normal hearing, no nystagmus Cranial Nerve IX: normal palate elevation, gag response Cranial Nerve X: no voice hoarseness Cranial Nerve XI: SCM symmetric, trapezii function normal Cranial Nerve XII: tongue midline, no tongue atrophy/fasciculations Motor System: normal muscle tone, no involuntary movement, no muscle wasting Sensory: normal pinprick, normal light touch, normal position sense, normal graphesthesia Coordination: normal heel to villarreal bilaterally, negative Romberg test Deep Tendon Reflexes: 1+ bicep (L), 1+ bicep (R), 1+ tricep (L), 1+ tricep (R) , 1+ brachioradialis (L), 1+ brachioradialis (R), 1+ knee (L), 1+ knee (R), 1+ ankle (L), 1+ ankle (R) Reflexes: flexor plantar (L), flexor plantar (R); extensor plantar (L), extensor plantar (R) Stance: other - Broad based Gait: stable Objective Left arm, predominantly hand weakness at this time. Alert and oriented Reporting seeing a rat, but thinks he is "seeing things" . Denies any thoughts of self harm or harm to others. Ambulatory with cellulitis persisting on BLE He does not have proximal left arm weakness at this time, mild facial weakness, tongue deviated on exam Imaging DATE OF PROCEDURE: 01/02/2019 REQUESTING PHYSICIAN: Amador Brewster M.D. HISTORY: This EEG was performed on a 53-year-old gentleman with a history of morbid obesity, seizures, and an altered mental state. The purpose of this EEG was to evaluate the patient for the degree and type of cerebral dysfunction and to exclude ongoing ictal or interictal phenomena. TECHNICAL NOTE: This EEG was performed on a [employer] with electrodes placed on the scalp according to the international 10-20 system. [id number] and kyoql-wi-rdz montages were used. The EEG was technically satisfactory and was performed while the patient was in awake, drowsy, and sleep states. OBSERVATIONS: In the reportedly awake state, the background activity consisted of 7 to 7.5 hertz theta with some intermixed 8 hertz alpha frequencies. Drowsiness was characterized by slowing of the background in the 4 to 4.5 hertz theta range with intermixed delta frequencies. Stage 2 sleep was characterized by further slowing of the background in the delta and theta range, the presence of vertex waves, and 12 to 14 hertz sleep spindles. No definite focal abnormalities or epileptiform discharges were seen. IMPRESSION: This is an abnormal EEG characterized by slowing of the background in the 7 to 7.5 hertz theta range with some intermixed alpha frequencies seen during wakefulness. COMMENT: The study is consistent with an encephalopathy of a mild degree. Clinical correlation is recommended. Kar Soriaon M.D. DR: Staci JOB#: [id number] CC: [id number] [place], [place] [address] ELECTROENCEPHALOGRAM Patient: TRA LUND [facility] Rec #: [id number] Patient No.: [id number] Date of Service: 12/14/18 MTF0 30 Page of Impression/Recommendations Problems: (1) Seizures Assessment & Plan: Keppra 1500mg BID PO Maintain SBP<140 Q4 Hour Neuro Checks Ativan 2mg PRN for seizure activity CT Head w/o contrast when able to rule out CVA - also for consideration of MRI if CT negative. - low suspicion of CVA due to normotensive status without risk factors of elevated BP/ HgBA1c or thyroid dysfunction. Na 135-145 Continue pain management - Lyrica 100mg TID - Continue Gabapentin 600mg TID Intense PT recommended EEG negative for seizures, but consistent with mild encephalopathy. (2) Morbid obesity (3) COPD (chronic obstructive pulmonary disease) (4) Uncontrolled seizures (5) Left-sided weakness Assessment & Plan: No seizure activity captured on EEG but mild to moderate degree of encephalopathy seen. (6) Knee osteomyelits, right Status: stable Recommendations Q4 hour Neuro Obs - NO NIGHTTIME OBS if stable Prevent delirium Maintain regular sleep schedule and reduce nighttime activities such as observations (if unnecessary) EEG Pending, Keppra dose increased to 2g BID , some increased sleepiness expected . Will consider addition of oral Lamictal Vicky Taylor N.P. Jan 03, 2019 17:28
--- NOTE | 2019-01-03 18:07 | General Progress Note ---
Assessment/Plan Problem List: (1) Abdominal pannus ICD Codes: E65 - Localized adiposity SNOMED: 4025517000042 (2) Peripheral edema ICD Codes: R60.9 - Edema, unspecified SNOMED: 458186722 (3) Abdominal wall cellulitis ICD Codes: L03.311 - Cellulitis of abdominal wall SNOMED: 37885915 (4) Leg pain ICD Codes: M79.606 - Pain in leg, unspecified SNOMED: 87252209 (5) COPD (chronic obstructive pulmonary disease) ICD Codes: J44.9 - Chronic obstructive pulmonary disease, unspecified SNOMED: 00224221 (6) Seizures ICD Codes: R56.9 - Unspecified convulsions SNOMED: 45292892 (7) Morbid obesity ICD Codes: E66.01 - Morbid (severe) obesity due to excess calories SNOMED: 402453891 (8) Cerebrovascular accident ICD Codes: I63.9 - Cerebral infarction, unspecified SNOMED: 764503197 (9) Left-sided weakness ICD Codes: R53.1 - Weakness SNOMED: 866556757 Status: stable Assessment/Plan: pt diet neuro f/u wound care abx pain control cbc bmp am dc to snf if clear Subjective Constitutional: Reports: weakness Allergies: Coded Allergies: ASPIRIN (Verified Allergy, Unknown, 07/14/18) KETOROLAC (Verified Allergy, Unknown, 07/14/18) PENICILLINS (Verified Allergy, Unknown, 12/23/18) tolerated Ancef on 08/2018 All Systems: reviewed and negative except above Subjective sleepy calm Objective Last 24 Hour Vital Signs Date Time Temp Pulse Resp B/P (MAP) Pulse Ox O2 Delivery O2 Flow Rate FiO2 01/03/19 15:43 98.7 105 20 106/76 (86) 96 01/03/19 11:37 97.9 95 20 113/65 (81) 90 01/03/19 09:26 86 18 94 Room Air 21 01/03/19 08:39 109/61 01/03/19 08:20 97.9 85 16 102/56 (71) 92 01/03/19 08:10 Room Air 01/03/19 06:13 98.6 01/03/19 04:00 98.2 88 20 109/61 (77) 94 01/02/19 21:00 Room Air 01/02/19 20:00 98.6 90 20 99/60 (73) 93 01/02/19 19:26 94 Room Air 21 Intake and Output 01/02/19 01/03/19 19:00 07:00 Intake Total 2155 ml 3250 ml Balance 2155 ml 3250 ml Intake Oral 1800 ml 2400 ml IV Total 355 ml Other 850 ml # Voids 8 8 Laboratory Tests 01/03/19 06:30: White Blood Count 6.3, Red Blood Count 3.92L, Hemoglobin 12.0L, Hematocrit 34.9L , Mean Corpuscular Volume 89, Mean Corpuscular Hemoglobin 30.7, Mean Corpuscular Hemoglobin Concent 34.4, Red Cell Distribution Width 13.2, Platelet Count 226, Mean Platelet Volume 5.0L, Neutrophils (%) (Auto) 67.0, Lymphocytes ( %) (Auto) 22.3, Monocytes (%) (Auto) 7.0, Eosinophils (%) (Auto) 3.0, Basophils (%) (Auto) 0.7, Sodium Level 138, Potassium Level 3.7, Chloride Level 100, Carbon Dioxide Level 35H, Anion Gap 3L, Blood Urea Nitrogen 22H, Creatinine 1.1 , Estimat Glomerular Filtration Rate > 60, Glucose Level 93, Calcium Level 8.8# , Total Bilirubin 0.3, Aspartate Amino Transf (AST/SGOT) 33, Alanine Aminotransferase (ALT/SGPT) 26, Alkaline Phosphatase 134H, Total Creatine Kinase 181, Pro-B-Type Natriuretic Peptide 73, Total Protein 6.7, Albumin 2.6L, Globulin 4.1, Albumin/Globulin Ratio 0.6L Height (Feet): 5 Height (Inches): 10.00 Weight (Pounds): 494 General Appearance: lethargic EENT: normal ENT inspection Neck: normal alignment Cardiovascular: normal peripheral pulses, normal rate, regular rhythm Respiratory/Chest: chest wall non-tender, lungs clear, normal breath sounds Abdomen: normal bowel sounds, distended Extremities: normal inspection Edema: 1+ Arm (L), 1+ Arm (R), 1+ Leg (L), 1+ Leg (R), 1+ Pedal (L), 1+ Pedal ( R), 1+ Generalized Edema: trace edema Neurologic: responsive, motor weakness Skin: normal pigmentation, warm/dry Ernesto Nicole DO Jan 03, 2019 18:07
--- NOTE | 2019-01-03 19:15 | NUR ---
HAND-OFF: Report given to Xochitl Krishnan RN PATIENT RESTING COMFORTABLY IN BED, FREE FROM INJURY MICAELA ADAMES.
--- NOTE | 2019-01-03 19:16 | NUR ---
Nurse notes received patient sitting upright, patient awake, alert, oriented x4, no sign of distress, PICC line right upper arm dressing clean dry and intact, on fall precautions observed and maintained, plan of care, Discussed with patient. Will continue to monitor
[2019-01-03 20:00] VITALS: BP 128/77
[2019-01-03] MEDS: Dyna-Hex 2% Top Sol 2oz TOPIC SCH (20:00)
--- NOTE | 2019-01-03 20:00 | Progress Note ---
DATE: 01/03/2019 SUBJECTIVE: The patient is a 53-year-old male , status post CVA. The patient has confusion, disorganized thought process, decline in cognition below his baseline, worsened thoughts, pressured speech, and mood lability. MENTAL STATUS EXAMINATION: A 53-year-old male. His appearance is anxious. Affect is guarded and restricted. Intellect poor. Mood depressed and anxious. Motor activity, psychomotor agitation. Attention span is poor. Orientation x2. Speech is low volume. Thought process is disorganized and logical. Insight and judgment is poor. DIAGNOSIS: Major depressive disorder, mild, recurrent without psychotic features, rule out generalized anxiety disorder. PLAN: Treat the patient with medication regimen of Neurontin 600 mg three times a day and also treat him with Cymbalta 30 mg daily and also trazodone 100 mg nightly. A 20 minutes of cognitive behavioral therapy to help him identify automatic negative thoughts and convert his negative thoughts to more positive thoughts to reduce depression, anxiety, suicidality. Chart reviewed and discussed with the staff. Seen and assessed in the room. Laney Mcghee M.D. DR: Lois JOB#: [id number] CC:
[2019-01-03] MEDS: TraZODone 100mg tab ORAL SCH (21:30)
[2019-01-03] MEDS: Atorvastatin 80mg tab ORAL SCH (21:30)
--- NOTE | 2019-01-03 23:19 | Cardiology Progress Note ---
Assessment/Plan Assessment/Plan 1. Possibly non-cardiac chest pain, 12 lead ECG shows no evidence of ischemia, trop I level is normal. 2. Morbid obesity with panniculitis, normal LV systolic and diastolic function per recent echo, clear for "removal of pannus". 3. Chronic venous insufficiency, off amlodipine. 4. HTN, well controlled, continue losartan. 5. COPD 6. Seizure D/O 7. Hypomagnesemia, Mg level in am. Subjective Subjective No chest pain was reported in the past 24 hrs. Objective Last 24 Hour Vital Signs Date Time Temp Pulse Resp B/P (MAP) Pulse Ox O2 Delivery O2 Flow Rate FiO2 01/03/19 22:01 98.7 01/03/19 19:46 89 18 94 Room Air 21 01/03/19 15:43 98.7 105 20 106/76 (86) 96 01/03/19 11:37 97.9 95 20 113/65 (81) 90 01/03/19 09:26 86 18 94 Room Air 21 01/03/19 08:39 109/61 01/03/19 08:20 97.9 85 16 102/56 (71) 92 01/03/19 08:10 Room Air 01/03/19 04:00 98.2 88 20 109/61 (77) 94 Intake and Output 01/02/19 01/03/19 19:00 07:00 Intake Total 2155 ml 3250 ml Balance 2155 ml 3250 ml Intake Oral 1800 ml 2400 ml IV Total 355 ml Other 850 ml # Voids 8 8 2D Echo: Normal LV systolic function, RVSP 34 mmHg, RAP elevated at 15 mmHg Laboratory Tests Test 01/03/19 06:30 White Blood Count 6.3 K/UL (4.8-10.8) Red Blood Count 3.92 M/UL (4.70-6.10) L Hemoglobin 12.0 G/DL (14.2-18.0) L Hematocrit 34.9 % (42.0-52.0) L Mean Corpuscular Volume 89 FL (80-99) Mean Corpuscular Hemoglobin 30.7 PG (27.0-31.0) Mean Corpuscular Hemoglobin Concent 34.4 G/DL (32.0-36.0) Red Cell Distribution Width 13.2 % (11.6-14.8) Platelet Count 226 K/UL (150-450) Mean Platelet Volume 5.0 FL (6.5-10.1) L Neutrophils (%) (Auto) 67.0 % (45.0-75.0) Lymphocytes (%) (Auto) 22.3 % (20.0-45.0) Monocytes (%) (Auto) 7.0 % (1.0-10.0) Eosinophils (%) (Auto) 3.0 % (0.0-3.0) Basophils (%) (Auto) 0.7 % (0.0-2.0) Sodium Level 138 MMOL/L (136-145) Potassium Level 3.7 MMOL/L (3.5-5.1) Chloride Level 100 MMOL/L (98-107) Carbon Dioxide Level 35 MMOL/L (21-32) H Anion Gap 3 mmol/L (5-15) L Blood Urea Nitrogen 22 mg/dL (7-18) H Creatinine 1.1 MG/DL (0.55-1.30) Estimat Glomerular Filtration Rate > 60 mL/min (>60) Glucose Level 93 MG/DL (74-106) Calcium Level 8.8 MG/DL (8.5-10.1) # Total Bilirubin 0.3 MG/DL (0.2-1.0) Aspartate Amino Transf (AST/SGOT) 33 U/L (15-37) Alanine Aminotransferase (ALT/SGPT) 26 U/L (12-78) Alkaline Phosphatase 134 U/L (46-116) H Total Creatine Kinase 181 U/L (26-308) Pro-B-Type Natriuretic Peptide 73 pg/mL (0-125) Total Protein 6.7 G/DL (6.4-8.2) Albumin 2.6 G/DL (3.4-5.0) L Globulin 4.1 g/dL Albumin/Globulin Ratio 0.6 (1.0-2.7) L Objective HEENT: Atraumatic and normocephalic. Anicteric. Pupils are equal, round, and reactive to light and accommodation. NECK: JVP cannot be assessed due to obesity. No carotid bruit. CARDIOVASCULAR: Normal S1, S2. Regular rate and rhythm. No murmurs, gallops, or rubs. PMI is at fourth intercostal space at the midclavicular line. LUNGS: Clear to auscultation bilaterally. ABDOMEN: Distended due to pannus formation, cannot palpate hepatosplenomegaly. Positive bowel sounds. EXTREMITIES: No lower extremity edema, clubbing or cyanosis. Carlos Martins MD Jan 03, 2019 23:19
--- NOTE | 2019-01-03 23:41 | NUR ---
NURSE NOTES: Pt refused lasix after drawing medication- lasix up. I wasted medication in the med room. Pt stated he "dont feel right." and that he did not want to take the medication late at night because he will be up to use the restroom frequently.
[2019-01-04] VITALS: BP 124/52
[2019-01-04 04:00] VITALS: BP 136/89
[2019-01-04 06:01] LABS: BASOPHILS % (AUTO) 0.8 % (0.0-2.0); EOSINOPHILS % (AUTO) 3.4 % (0.0-3.0); HEMATOCRIT 34.2 % (42.0-52.0); HEMOGLOBIN 11.4 G/DL (14.2-18.0); LYMPHOCYTES % (AUTO) 33.4 % (20.0-45.0); MEAN CORPUSCULAR VOLUME 90 FL (80-99); MONOCYTES % (AUTO) 12.3 % (1.0-10.0); NEUTROPHILS % (AUTO) 50.1 % (45.0-75.0); PLATELET COUNT 240 K/UL (150-450); RED BLOOD COUNT 3.79 M/UL (4.70-6.10); RED CELL DISTRIBUTION WIDTH 12.8 % (11.6-14.8); WHITE BLOOD COUNT 5.2 K/UL (4.8-10.8)
[2019-01-04 06:12] LABS: ANION GAP 1 mmol/L (5-15); BLOOD UREA NITROGEN 19 mg/dL (7-18); CALCIUM 8.3 MG/DL (8.5-10.1); CARBON DIOXIDE 35 MMOL/L (21-32); CHLORIDE 101 MMOL/L (98-107); CREATININE 1.1 MG/DL (0.55-1.30); POTASSIUM 3.7 MMOL/L (3.5-5.1); SODIUM 137 MMOL/L (136-145)
[2019-01-04 08:00] VITALS: BP 116/85
--- NOTE | 2019-01-04 08:20 | NUR ---
NURSE NOTES: Patient is awake and alert and oriented respirations unlabored.Noted Picc Line intact,dressing clean.patient ate breakfast.Call light within reach.
--- NOTE | 2019-01-04 08:28 | General Progress Note ---
Assessment/Plan Problem List: (1) Abdominal pannus ICD Codes: E65 - Localized adiposity SNOMED: 8292439873001 (2) Peripheral edema ICD Codes: R60.9 - Edema, unspecified SNOMED: 903154252 (3) Abdominal wall cellulitis ICD Codes: L03.311 - Cellulitis of abdominal wall SNOMED: 64912541 (4) Leg pain ICD Codes: M79.606 - Pain in leg, unspecified SNOMED: 33027631 (5) COPD (chronic obstructive pulmonary disease) ICD Codes: J44.9 - Chronic obstructive pulmonary disease, unspecified SNOMED: 09380172 (6) Seizures ICD Codes: R56.9 - Unspecified convulsions SNOMED: 16123046 (7) Morbid obesity ICD Codes: E66.01 - Morbid (severe) obesity due to excess calories SNOMED: 319898622 (8) Cerebrovascular accident ICD Codes: I63.9 - Cerebral infarction, unspecified SNOMED: 476894987 (9) Left-sided weakness ICD Codes: R53.1 - Weakness SNOMED: 267711876 Status: stable, progressing Assessment/Plan: pt diet neuro f/u wound care abx pain control cbc bmp am dc to snf if clear Subjective Constitutional: Reports: weakness Allergies: Coded Allergies: ASPIRIN (Verified Allergy, Unknown, 07/14/18) KETOROLAC (Verified Allergy, Unknown, 07/14/18) PENICILLINS (Verified Allergy, Unknown, 12/23/18) tolerated Ancef on 08/2018 All Systems: reviewed and negative except above Subjective sleepy calm Objective Last 24 Hour Vital Signs Date Time Temp Pulse Resp B/P (MAP) Pulse Ox O2 Delivery O2 Flow Rate FiO2 01/04/19 07:59 90 20 93 Room Air 21 01/04/19 05:59 98.4 01/04/19 04:00 98.4 93 20 136/89 (105) 94 01/04/19 00:00 98.4 88 20 124/52 (76) 95 01/03/19 21:00 Room Air 01/03/19 20:00 98.2 98 22 128/77 (94) 94 01/03/19 19:46 89 18 94 Room Air 21 01/03/19 15:43 98.7 105 20 106/76 (86) 96 01/03/19 11:37 97.9 95 20 113/65 (81) 90 01/03/19 09:26 86 18 94 Room Air 21 01/03/19 08:39 109/61 Intake and Output 01/03/19 01/04/19 18:59 06:59 Intake Total 655 ml Balance 655 ml Intake Oral 600 ml IV Total 55 ml # Voids 4 Laboratory Tests 01/04/19 04:30: White Blood Count 5.2, Red Blood Count 3.79L, Hemoglobin 11.4L, Hematocrit 34.2L , Mean Corpuscular Volume 90, Mean Corpuscular Hemoglobin 30.1, Mean Corpuscular Hemoglobin Concent 33.4, Red Cell Distribution Width 12.8, Platelet Count 240, Mean Platelet Volume 4.9L, Neutrophils (%) (Auto) 50.1, Lymphocytes ( %) (Auto) 33.4, Monocytes (%) (Auto) 12.3H, Eosinophils (%) (Auto) 3.4H, Basophils (%) (Auto) 0.8, Sodium Level 137, Potassium Level 3.7, Chloride Level 101, Carbon Dioxide Level 35H, Anion Gap 1L, Blood Urea Nitrogen 19H, Creatinine 1.1, Estimat Glomerular Filtration Rate > 60, Glucose Level 93, Calcium Level 8.3L, Magnesium Level 1.9 Height (Feet): 5 Height (Inches): 10.00 Weight (Pounds): 494 General Appearance: lethargic EENT: normal ENT inspection Neck: normal alignment Cardiovascular: normal peripheral pulses, normal rate, regular rhythm Respiratory/Chest: chest wall non-tender, lungs clear, normal breath sounds Abdomen: normal bowel sounds, distended Extremities: normal inspection Edema: 1+ Arm (L), 1+ Arm (R), 1+ Leg (L), 1+ Leg (R), 1+ Pedal (L), 1+ Pedal ( R), 1+ Generalized Edema: trace edema Neurologic: responsive, motor weakness Skin: normal pigmentation, warm/dry Ernesto Nicole DO Jan 04, 2019 08:27
[2019-01-04] MEDS: Losartan 25mg tab ORAL SCH (09:00)
[2019-01-04] MEDS: Lyrica 50mg cap ORAL SCH ×3 (09:02→18:08)
[2019-01-04] MEDS: Magnesium Oxide 400mg tab ORAL SCH ×3 (09:03→18:07)
[2019-01-04] MEDS: DULoxetine 30mg cap ORAL SCH (09:03)
[2019-01-04] MEDS: Heparin 5000 units/ml inj SUBQ SCH ×2 (09:08→20:46)
[2019-01-04 12:00] VITALS: BP 137/76
--- NOTE | 2019-01-04 12:00 | NUR ---
DISCHARGE SWALLOW/SPEECH THERAPY NOTE: PATIENT SEEN MOSTLY FOR DYSPHAGIA, SEE SWALLOW EVALUATION. GOALS MET FOR INTAKE AND GOALS MET FOR STAFF (SHAYY HINOJOSA) AWARE/EDUCATED/TRAINED IN ASPIRATION PRECAUTIONS WITH REG TEXTURE DIET AND THIN LIQUIDS (SEE REPORT FOR SPECIFICS). ALTHOUGH A MOD BARIUM SWALLOW STUDY WAS RECOMMENDED, IT WAS NOT COMPLETED DUE TO SCHEDULING CONFLICTS; HOWEVER, PER LAST CXR, THERE IS NO ACUTE PROCESS AND HAS LEFT BASILAR ATELECTASIS. PLAN: WILL DC FROM SKILLED [facility] AT THIS TIME DUE TO FUNCTIONAL SWALLOWING SKILLS AND CONSIDER F/UP OP FOR MOD BARIUM SWALLOW STUDY IF INDICATED. ALSO CONSIDER COGNITIVE-COMMUNICATIVE EVAL/TX AT SNF. D/W RNSHAYY
--- NOTE | 2019-01-04 12:18 | Nephrology Progress Note ---
Assessment/Plan Problem List: (1) Hyponatremia (2) Morbid obesity (3) COPD (chronic obstructive pulmonary disease) Plan Mag IV as needed Mag PO TID Low Na resolved cont per consultants Subjective ROS Limited/Unobtainable: No Objective Objective Last 24 Hour Vital Signs Date Time Temp Pulse Resp B/P (MAP) Pulse Ox O2 Delivery O2 Flow Rate FiO2 01/04/19 09:00 Room Air 01/04/19 09:00 Room Air 01/04/19 09:00 108/64 01/04/19 08:00 97.3 89 18 116/85 (95) 98 01/04/19 07:59 90 20 93 Room Air 21 01/04/19 05:59 98.4 01/04/19 04:00 98.4 93 20 136/89 (105) 94 01/04/19 00:00 98.4 88 20 124/52 (76) 95 01/03/19 21:00 Room Air 01/03/19 20:00 98.2 98 22 128/77 (94) 94 01/03/19 19:46 89 18 94 Room Air 21 01/03/19 15:43 98.7 105 20 106/76 (86) 96 Intake and Output 01/03/19 01/04/19 18:59 06:59 Intake Total 655 ml Balance 655 ml Intake Oral 600 ml IV Total 55 ml # Voids 4 Laboratory Tests 01/04/19 04:30: White Blood Count 5.2, Red Blood Count 3.79L, Hemoglobin 11.4L, Hematocrit 34.2L , Mean Corpuscular Volume 90, Mean Corpuscular Hemoglobin 30.1, Mean Corpuscular Hemoglobin Concent 33.4, Red Cell Distribution Width 12.8, Platelet Count 240, Mean Platelet Volume 4.9L, Neutrophils (%) (Auto) 50.1, Lymphocytes ( %) (Auto) 33.4, Monocytes (%) (Auto) 12.3H, Eosinophils (%) (Auto) 3.4H, Basophils (%) (Auto) 0.8, Sodium Level 137, Potassium Level 3.7, Chloride Level 101, Carbon Dioxide Level 35H, Anion Gap 1L, Blood Urea Nitrogen 19H, Creatinine 1.1, Estimat Glomerular Filtration Rate > 60, Glucose Level 93, Calcium Level 8.3L, Magnesium Level 1.9 Height (Feet): 5 Height (Inches): 10.00 Weight (Pounds): 494 General Appearance: no apparent distress Cardiovascular: tachycardia Respiratory/Chest: decreased breath sounds Abdomen: other - obese Extremities: other - LE cellulitis Objective no change Devante Taylor MD Jan 04, 2019 12:18
--- NOTE | 2019-01-04 12:44 | Pulmonology Progress Note ---
Assessment/Plan Problems: (1) Morbid obesity (2) Peripheral edema (3) Cellulitis (4) Seizures (5) Cerebrovascular accident (6) Left-sided weakness (7) COPD (chronic obstructive pulmonary disease) (8) Right heart failure (9) Lumbar spondylosis (10) ADALBERTO (obstructive sleep apnea) Assessment/Plan doig better coughing up dark/ brown phlegm. add levofloxacin all meds /notes reviewed pt/ot increase dialudid to 4 mg and add Methadone 10Q8 respiratory treatment titrate fio2 to sat of 92% dvt prophylaxis Subjective ROS Limited/Unobtainable: No Constitutional: Reports: no symptoms HEENT: Repors: no symptoms Respiratory: Reports: no symptoms Allergies: Coded Allergies: ASPIRIN (Verified Allergy, Unknown, 07/14/18) KETOROLAC (Verified Allergy, Unknown, 07/14/18) PENICILLINS (Verified Allergy, Unknown, 12/23/18) tolerated Ancef on 08/2018 Objective Last 24 Hour Vital Signs Date Time Temp Pulse Resp B/P (MAP) Pulse Ox O2 Delivery O2 Flow Rate FiO2 01/04/19 12:00 97.2 68 17 137/76 (96) 92 01/04/19 09:00 Room Air 01/04/19 09:00 Room Air 01/04/19 09:00 108/64 01/04/19 08:00 97.3 89 18 116/85 (95) 98 01/04/19 07:59 90 20 93 Room Air 21 01/04/19 05:59 98.4 01/04/19 04:00 98.4 93 20 136/89 (105) 94 01/04/19 00:00 98.4 88 20 124/52 (76) 95 01/03/19 21:00 Room Air 01/03/19 20:00 98.2 98 22 128/77 (94) 94 01/03/19 19:46 89 18 94 Room Air 21 01/03/19 15:43 98.7 105 20 106/76 (86) 96 Intake and Output 01/03/19 01/04/19 18:59 06:59 Intake Total 655 ml Balance 655 ml Intake Oral 600 ml IV Total 55 ml # Voids 4 Objective HEENT: normocephalic, atraumatic Respiratory/Chest: chest wall non-tender, lungs clear Cardiovascular: normal peripheral pulses, normal rate Abdomen: normal bowel sounds, no organomegaly, massive fat on abdomen Extremities: no cyanosis Skin: no lesions Laboratory Tests 01/04/19 04:30: White Blood Count 5.2, Red Blood Count 3.79L, Hemoglobin 11.4L, Hematocrit 34.2L , Mean Corpuscular Volume 90, Mean Corpuscular Hemoglobin 30.1, Mean Corpuscular Hemoglobin Concent 33.4, Red Cell Distribution Width 12.8, Platelet Count 240, Mean Platelet Volume 4.9L, Neutrophils (%) (Auto) 50.1, Lymphocytes ( %) (Auto) 33.4, Monocytes (%) (Auto) 12.3H, Eosinophils (%) (Auto) 3.4H, Basophils (%) (Auto) 0.8, Sodium Level 137, Potassium Level 3.7, Chloride Level 101, Carbon Dioxide Level 35H, Anion Gap 1L, Blood Urea Nitrogen 19H, Creatinine 1.1, Estimat Glomerular Filtration Rate > 60, Glucose Level 93, Calcium Level 8.3L, Magnesium Level 1.9 Current Medications Medications (Trade) Dose Ordered Sig/Luis Route PRN Reason Start Time Stop Time Status Last Admin Dose Admin Acetaminophen (Tylenol) 650 mg Q4H PRN ORAL fever 12/15/18 14:54 01/14/19 14:53 Albuterol/ Ipratropium (Albuterol/ Ipratropium) 3 ml Q4H PRN HHN Shortness of breath 12/30/18 19:00 01/04/19 18:59 01/02/19 12:45 Atorvastatin Calcium (Lipitor) 80 mg BEDTIME ORAL 12/15/18 21:00 01/14/19 20:59 01/03/19 21:30 Chlorhexidine Gluconate (Ruby-Hex 2%) 1 applic DAILY@2000 TOPIC 12/22/18 20:00 01/21/19 19:59 01/03/19 20:00 Clonidine HCl (Catapres Tab) 0.1 mg Q4H PRN ORAL For High Blood Pressure 12/15/18 14:56 01/14/19 14:55 Clopidogrel Bisulfate (Plavix) 75 mg DAILY ORAL 12/16/18 09:00 01/14/19 08:59 01/04/19 09:03 Daptomycin 900 mg/ Sodium Chloride 55 ml @ 110 mls/hr Q24H IV 12/25/18 14:00 01/07/19 13:59 01/03/19 13:48 Dextrose (Dextrose 50%) 25 ml Q30M PRN IV Hypoglycemia 12/15/18 15:15 01/13/19 23:44 Dextrose (Dextrose 50%) 50 ml Q30M PRN IV Hypoglycemia 12/15/18 15:15 01/13/19 23:44 Duloxetine HCl (Cymbalta) 30 mg DAILY ORAL 12/16/18 09:00 01/14/19 08:59 01/04/19 09:03 Furosemide (Lasix) 20 mg Q6HR IV 12/22/18 00:00 01/21/19 00:00 01/04/19 12:38 Gabapentin (Neurontin) 600 mg THREE TIMES A DAY ORAL 12/15/18 18:00 01/14/19 08:59 01/04/19 09:03 Heparin Sodium (Porcine) (Heparin 5000 units/ml) 5,000 units EVERY 12 HOURS SUBQ 12/15/18 21:00 01/14/19 08:59 01/04/19 09:08 Hydromorphone HCl (Dilaudid) 4 mg Q4H PRN IVP Breakthrough Pain 01/01/19 10:29 01/08/19 10:28 01/04/19 10:01 Levetiracetam (Keppra) 2,000 mg Q12HR ORAL 01/01/19 21:00 01/18/19 08:59 01/04/19 09:03 Levofloxacin (Levaquin) 500 mg Q24H ORAL 12/30/18 13:00 01/06/19 12:59 01/03/19 12:13 Losartan Potassium (Cozaar) 25 mg DAILY ORAL 12/29/18 13:45 01/28/19 13:44 01/02/19 09:28 Magnesium Oxide (Mag-Ox 400mg) 800 mg THREE TIMES A DAY ORAL 01/02/19 18:00 02/01/19 17:59 01/04/19 09:03 Methadone HCl (Methadone HCl) 10 mg EVERY 8 HOURS ORAL 12/29/18 22:00 01/05/19 21:59 01/04/19 05:28 Nitroglycerin (Ntg) 0.4 mg Q5M X 3 DOSES PRN SL Prn Chest Pain 12/15/18 14:45 01/13/19 23:44 01/02/19 11:59 Ondansetron HCl (Zofran) 4 mg Q6H PRN IVP Nausea & Vomiting 12/15/18 14:55 01/14/19 14:54 12/17/18 10:19 Polyethylene Glycol (Miralax) 17 gm HSPRN PRN ORAL Constipation 12/15/18 14:55 01/14/19 14:54 Pregabalin (Lyrica) 100 mg THREE TIMES A DAY ORAL 12/26/18 09:00 01/19/19 22:59 01/04/19 09:02 Promethazine HCl/ Codeine (Phenergan with Codeine) 5 ml Q4H PRN ORAL For Cough 12/28/18 12:00 01/27/19 11:59 01/01/19 01:34 Trazodone HCl (Desyrel) 100 mg BEDTIME ORAL 12/15/18 21:00 01/14/19 20:59 01/03/19 21:30 Bill Dixon MD Jan 04, 2019 12:44
[2019-01-04] MEDS: Levofloxacin 500mg tab ORAL SCH (13:04)
[2019-01-04] MEDS: NS IV SCH (14:38)
[2019-01-04] MEDS: DAPTOMYCIN IV SCH (14:38)
[2019-01-04 16:00] VITALS: BP 126/79
--- NOTE | 2019-01-04 16:06 | Infectious Diseases Prog Note ---
Assessment/Plan Assessment/Plan B/l Leg cellulitis and panniculitis- in the setting of chronic venous stasis L side weakness/spasticity- thought be 2ry to seizures- r/O CVA- no active infectious process at present (pt afebrile- doubt meningitis at this moment) Afebrile No leukocytosis -CXR: No acute findings CVA HTN bipolar disorder w/ psychotic features tobacco abuse anxiety disorder chronic pain CHF seizure disorder COPD morbid obesity Dm2 HTN SNF resident Plan: IV Dapto d# 9 ( pt Cr increased 30% will avoid Vanco) Would treat for 14 day ( End date 01/07/19) 12/25 sp Bactrim #4/14 and add IV Ancef #3/14 for cellulitis -Monitor CBC/CMP, temperatures -neuro f/u- plan for CT head, include neck as lump in back of neck; however pt did not fit on CT scan machine due to weight -aspiration precautions -wound care per hospital protocol Subjective Allergies: Coded Allergies: ASPIRIN (Verified Allergy, Unknown, 07/14/18) KETOROLAC (Verified Allergy, Unknown, 07/14/18) PENICILLINS (Verified Allergy, Unknown, 12/23/18) tolerated Ancef on 08/2018 Subjective Afebrile No leukocytosis Objective Vital Signs Last 24 Hour Vital Signs Date Time Temp Pulse Resp B/P (MAP) Pulse Ox O2 Delivery O2 Flow Rate FiO2 01/04/19 12:00 97.2 68 17 137/76 (96) 92 01/04/19 09:00 Room Air 01/04/19 09:00 Room Air 01/04/19 09:00 108/64 01/04/19 08:00 97.3 89 18 116/85 (95) 98 01/04/19 07:59 90 20 93 Room Air 21 01/04/19 05:59 98.4 01/04/19 04:00 98.4 93 20 136/89 (105) 94 01/04/19 00:00 98.4 88 20 124/52 (76) 95 01/03/19 21:00 Room Air 01/03/19 20:00 98.2 98 22 128/77 (94) 94 01/03/19 19:46 89 18 94 Room Air 21 Height (Feet): 5 Height (Inches): 10.00 Weight (Pounds): 494 Objective GEN: NAD HEENT: NCAT, MMM Respiratory/Chest: CTAB, No W Cardiovascular: RRR, S1, S2 Abdomen: Soft, ND Ext. LE in bandages B/L with serous drainage Laboratory Tests Test 01/04/19 04:30 White Blood Count 5.2 K/UL (4.8-10.8) Red Blood Count 3.79 M/UL (4.70-6.10) L Hemoglobin 11.4 G/DL (14.2-18.0) L Hematocrit 34.2 % (42.0-52.0) L Mean Corpuscular Volume 90 FL (80-99) Mean Corpuscular Hemoglobin 30.1 PG (27.0-31.0) Mean Corpuscular Hemoglobin Concent 33.4 G/DL (32.0-36.0) Red Cell Distribution Width 12.8 % (11.6-14.8) Platelet Count 240 K/UL (150-450) Mean Platelet Volume 4.9 FL (6.5-10.1) L Neutrophils (%) (Auto) 50.1 % (45.0-75.0) Lymphocytes (%) (Auto) 33.4 % (20.0-45.0) Monocytes (%) (Auto) 12.3 % (1.0-10.0) H Eosinophils (%) (Auto) 3.4 % (0.0-3.0) H Basophils (%) (Auto) 0.8 % (0.0-2.0) Sodium Level 137 MMOL/L (136-145) Potassium Level 3.7 MMOL/L (3.5-5.1) Chloride Level 101 MMOL/L (98-107) Carbon Dioxide Level 35 MMOL/L (21-32) H Anion Gap 1 mmol/L (5-15) L Blood Urea Nitrogen 19 mg/dL (7-18) H Creatinine 1.1 MG/DL (0.55-1.30) Estimat Glomerular Filtration Rate > 60 mL/min (>60) Glucose Level 93 MG/DL (74-106) Calcium Level 8.3 MG/DL (8.5-10.1) L Magnesium Level 1.9 MG/DL (1.8-2.4) Current Medications Medications (Trade) Dose Ordered Sig/Luis Route PRN Reason Start Time Stop Time Status Last Admin Dose Admin Acetaminophen (Tylenol) 650 mg Q4H PRN ORAL fever 12/15/18 14:54 01/14/19 14:53 Albuterol/ Ipratropium (Albuterol/ Ipratropium) 3 ml Q4H PRN HHN Shortness of breath 12/30/18 19:00 01/04/19 18:59 01/02/19 12:45 Atorvastatin Calcium (Lipitor) 80 mg BEDTIME ORAL 12/15/18 21:00 01/14/19 20:59 01/03/19 21:30 Chlorhexidine Gluconate (Ruby-Hex 2%) 1 applic DAILY@2000 TOPIC 12/22/18 20:00 01/21/19 19:59 01/03/19 20:00 Clonidine HCl (Catapres Tab) 0.1 mg Q4H PRN ORAL For High Blood Pressure 12/15/18 14:56 01/14/19 14:55 Clopidogrel Bisulfate (Plavix) 75 mg DAILY ORAL 12/16/18 09:00 01/14/19 08:59 01/04/19 09:03 Daptomycin 900 mg/ Sodium Chloride 55 ml @ 110 mls/hr Q24H IV 12/25/18 14:00 01/07/19 13:59 01/04/19 14:38 Dextrose (Dextrose 50%) 25 ml Q30M PRN IV Hypoglycemia 12/15/18 15:15 01/13/19 23:44 Dextrose (Dextrose 50%) 50 ml Q30M PRN IV Hypoglycemia 12/15/18 15:15 01/13/19 23:44 Duloxetine HCl (Cymbalta) 30 mg DAILY ORAL 12/16/18 09:00 01/14/19 08:59 01/04/19 09:03 Furosemide (Lasix) 20 mg Q6HR IV 12/22/18 00:00 01/21/19 00:00 01/04/19 12:38 Gabapentin (Neurontin) 600 mg THREE TIMES A DAY ORAL 12/15/18 18:00 01/14/19 08:59 01/04/19 13:05 Heparin Sodium (Porcine) (Heparin 5000 units/ml) 5,000 units EVERY 12 HOURS SUBQ 12/15/18 21:00 01/14/19 08:59 01/04/19 09:08 Hydromorphone HCl (Dilaudid) 4 mg Q4H PRN IVP Breakthrough Pain 01/01/19 10:29 01/08/19 10:28 01/04/19 14:34 Levetiracetam (Keppra) 2,000 mg Q12HR ORAL 01/01/19 21:00 01/18/19 08:59 01/04/19 09:03 Levofloxacin (Levaquin) 500 mg Q24H ORAL 12/30/18 13:00 01/06/19 12:59 01/04/19 13:04 Losartan Potassium (Cozaar) 25 mg DAILY ORAL 12/29/18 13:45 01/28/19 13:44 01/02/19 09:28 Magnesium Oxide (Mag-Ox 400mg) 800 mg THREE TIMES A DAY ORAL 01/02/19 18:00 02/01/19 17:59 01/04/19 13:07 Methadone HCl (Methadone HCl) 10 mg EVERY 8 HOURS ORAL 12/29/18 22:00 01/05/19 21:59 01/04/19 13:45 Nitroglycerin (Ntg) 0.4 mg Q5M X 3 DOSES PRN SL Prn Chest Pain 12/15/18 14:45 01/13/19 23:44 01/02/19 11:59 Ondansetron HCl (Zofran) 4 mg Q6H PRN IVP Nausea & Vomiting 12/15/18 14:55 01/14/19 14:54 12/17/18 10:19 Polyethylene Glycol (Miralax) 17 gm HSPRN PRN ORAL Constipation 12/15/18 14:55 01/14/19 14:54 Pregabalin (Lyrica) 100 mg THREE TIMES A DAY ORAL 12/26/18 09:00 01/19/19 22:59 01/04/19 13:05 Promethazine HCl/ Codeine (Phenergan with Codeine) 5 ml Q4H PRN ORAL For Cough 12/28/18 12:00 01/27/19 11:59 01/01/19 01:34 Trazodone HCl (Desyrel) 100 mg BEDTIME ORAL 12/15/18 21:00 01/14/19 20:59 01/03/19 21:30 Elliot Chauhan MD Jan 04, 2019 16:06
--- NOTE | 2019-01-04 16:30 | NUR ---
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 RIGHT SIDED HEART FAILURE VS: BP 137/76, P 93, T 97.2, RR 20, SpO2 92 RBC 3.79, H&H 11.4/34.2, BUN 19, CA 8.3 IS:DAPTOMYCIN 55ml IV DILAUDID 4mg IVP METHADONE HCI 10mg MAGNESIUM OXIDE 800mg GABAPENTIN 600mg LYRICA 100mg HEPARIN SUBQ PLAVIX 75mg CYMBALTA 30mg KEPPRA 2,000mg MED/SURG STATUS
--- NOTE | 2019-01-04 18:10 | NUR ---
NURSE NOTES: Patient resting dressing to bilateral lower legs clean and intact.patient requesting pain medication when due,will give as ordered.Call light within reach.
--- NOTE | 2019-01-04 19:00 | Progress Note ---
DATE: 01/04/2019 SUBJECTIVE: This is a 53-year-old male patient with status post rule out cerebrovascular accident, but this patient still has anxiety and depression , still has mood lability, irritability on interviewing. That is why, he does require daily psychiatric consultation because of his mood lability secondary to stress of his medical illness. MENTAL STATUS EXAMINATION: This is a 53-year-old male. Appearance is disheveled. Attitude, irritable and agitated. Affect, guarded and restricted. Intellect poor. Mood, depressed and anxious. Motor activity, psychomotor agitation. Attention span is poor. Orientation x2. Speech is low volume and slurred. Thought process, disorganized and illogical. Thought content, auditory hallucinations and paranoid delusions. Insight and judgment is poor. DIAGNOSIS: . PLAN: Plan is to treat him with Cymbalta 30 mg daily, Neurontin mg three times a day, trazodone 100 mg at bedtime and treat the patient with medication regimen . Chart reviewed. Discussed with staff. . A 20 minutes of cognitive behavioral therapy provided to help him identify his automatic negative thoughts, help him convert his negative thoughts to more positive thoughts to reduce depression, anxiety, mood lability and help him to more adaptive behavioral pattern. Laney Mcghee M.D. DR: GUTIERREZ JOB#: [id number] CC:
--- NOTE | 2019-01-04 19:27 | NUR ---
HAND-OFF: Report given to Ariella HINOJOSA.
--- NOTE | 2019-01-04 19:28 | NUR ---
NURSE NOTES: Patient is awake and alert and oriented respirations unlabored.Noted Picc Line intact- right upper arm,dressing clean. Call light within reach.
[2019-01-04 20:00] VITALS: BP 137/79
[2019-01-04] MEDS: Albuterol/Ipratropium 3ml neb HHN PRN (20:35)
[2019-01-04] MEDS: Dyna-Hex 2% Top Sol 2oz TOPIC SCH (20:45)
[2019-01-04] MEDS: TraZODone 100mg tab ORAL SCH (20:45)
[2019-01-04] MEDS: Atorvastatin 80mg tab ORAL SCH (20:45)
--- NOTE | 2019-01-04 23:43 | Neurology Progress Note ---
Interim History Interim History ROS Limited/Unobtainable: No Complaints: Seizures/ Weakness Events: This visit was performed on January 04, [address] Amador Brewster Interim History EEG performed on January 03, 2019 - No seizures observed, abnormal eeg Objective Physical Exam Last Vital Signs Date Time Temp Pulse Resp B/P (MAP) Pulse Ox O2 Delivery O2 Flow Rate FiO2 01/04/19 21:00 Room Air 01/04/19 20:42 90 20 96 21 01/04/19 20:00 98.1 137/79 (98) 01/02/19 12:55 2.0 Laboratory Tests Test 01/04/19 04:30 White Blood Count 5.2 K/UL (4.8-10.8) Red Blood Count 3.79 M/UL (4.70-6.10) L Hemoglobin 11.4 G/DL (14.2-18.0) L Hematocrit 34.2 % (42.0-52.0) L Mean Corpuscular Volume 90 FL (80-99) Mean Corpuscular Hemoglobin 30.1 PG (27.0-31.0) Mean Corpuscular Hemoglobin Concent 33.4 G/DL (32.0-36.0) Red Cell Distribution Width 12.8 % (11.6-14.8) Platelet Count 240 K/UL (150-450) Mean Platelet Volume 4.9 FL (6.5-10.1) L Neutrophils (%) (Auto) 50.1 % (45.0-75.0) Lymphocytes (%) (Auto) 33.4 % (20.0-45.0) Monocytes (%) (Auto) 12.3 % (1.0-10.0) H Eosinophils (%) (Auto) 3.4 % (0.0-3.0) H Basophils (%) (Auto) 0.8 % (0.0-2.0) Sodium Level 137 MMOL/L (136-145) Potassium Level 3.7 MMOL/L (3.5-5.1) Chloride Level 101 MMOL/L (98-107) Carbon Dioxide Level 35 MMOL/L (21-32) H Anion Gap 1 mmol/L (5-15) L Blood Urea Nitrogen 19 mg/dL (7-18) H Creatinine 1.1 MG/DL (0.55-1.30) Estimat Glomerular Filtration Rate > 60 mL/min (>60) Glucose Level 93 MG/DL (74-106) Calcium Level 8.3 MG/DL (8.5-10.1) L Magnesium Level 1.9 MG/DL (1.8-2.4) General: well developed, other - Morbidly obese Head: normocophalic Neck: no rigidity EENT: benign Neurologic Exam Mental Status: awake, alert, oriented x4, normal cognition, good mathematical skills, normal recent memory, normal remote memory, preserved visuospatial function Speech: normal speech, no dysarthia Language: normal language, no aphasia Cranial Nerve II: fundus normal, visual bonilal, no papilledema Cranial Nerves III, IV, : PERRLA, EOMI, pupils Cranial Nerve V: normal facial sensations, temporales function normal, masseters function normal, pterygoids function normal Cranial Nerve VII: normal facial expressions, other Cranial Nerve VIII: normal hearing, no nystagmus Cranial Nerve IX: normal palate elevation, gag response Cranial Nerve X: no voice hoarseness Cranial Nerve XI: SCM symmetric, trapezii function normal Cranial Nerve XII: tongue midline, no tongue atrophy/fasciculations Motor System: normal muscle tone, no involuntary movement, no muscle wasting Sensory: normal pinprick, normal light touch, normal position sense, normal graphesthesia Coordination: normal heel to villarreal bilaterally, negative Romberg test Deep Tendon Reflexes: 1+ bicep (L), 1+ bicep (R), 1+ tricep (L), 1+ tricep (R) , 1+ brachioradialis (L), 1+ brachioradialis (R), 1+ knee (L), 1+ knee (R), 1+ ankle (L), 1+ ankle (R) Reflexes: flexor plantar (L), flexor plantar (R); extensor plantar (L), extensor plantar (R) Stance: other - Broad based Gait: stable Objective Left arm, predominantly hand weakness at this time. Alert and oriented Ambulatory with cellulitis persisting on BLE He does not have proximal left arm weakness at this time, mild facial weakness, tongue deviated on exam Impression/Recommendations Problems: (1) Seizures Assessment & Plan: Keppra 2000mg BID PO Maintain SBP<140 Q4 Hour Neuro Checks Ativan 2mg PRN for seizure activity CT Head w/o contrast when able to rule out CVA - also for consideration of MRI if CT negative. - low suspicion of CVA due to normotensive status without risk factors of elevated BP/ HgBA1c or thyroid dysfunction. Na 135-145 Continue pain management - Lyrica 100mg TID - Continue Gabapentin 600mg TID Intense PT recommended EEG negative for seizures, but consistent with mild encephalopathy. Same on Repeat Correct hypocalcemia (2) Morbid obesity (3) COPD (chronic obstructive pulmonary disease) (4) Uncontrolled seizures (5) Left-sided weakness Assessment & Plan: No seizure activity captured on EEG but mild to moderate degree of encephalopathy seen. Repeat EEG same as previous (6) Knee osteomyelits, right Status: stable, progressing Recommendations Q4 hour Neuro Obs - NO NIGHTTIME OBS if stable Prevent delirium Maintain regular sleep schedule and reduce nighttime activities such as observations (if unnecessary) Maintain Keppra dose at 2g BID, no additional meds at this time. Patient neurologically stable at this time for discharge Vicky Taylor N.P. Jan 04, 2019 23:43
[2019-01-05] VITALS: BP 129/79
[2019-01-05] MEDS: Albuterol/Ipratropium 3ml neb HHN PRN (02:32)
--- NOTE | 2019-01-05 03:04 | Neurology Progress Note ---
Interim History Interim History ROS Limited/Unobtainable: No Complaints: Seizures/ Weakness Events: This visit was performed on January 05, [address] Amador Brewster Review of Systems Neuro Review of Systems No new seizures reported - left arm hand weakness/ spasm improved signficantly overall and on stable dose of Lyrica All Systems: reviewed and negative except above Objective Physical Exam Last Vital Signs Date Time Temp Pulse Resp B/P (MAP) Pulse Ox O2 Delivery O2 Flow Rate FiO2 01/05/19 02:46 89 18 97 Room Air 21 01/04/19 23:44 98.1 01/04/19 20:00 137/79 (98) 01/02/19 12:55 2.0 Laboratory Tests Test 01/04/19 04:30 White Blood Count 5.2 K/UL (4.8-10.8) Red Blood Count 3.79 M/UL (4.70-6.10) L Hemoglobin 11.4 G/DL (14.2-18.0) L Hematocrit 34.2 % (42.0-52.0) L Mean Corpuscular Volume 90 FL (80-99) Mean Corpuscular Hemoglobin 30.1 PG (27.0-31.0) Mean Corpuscular Hemoglobin Concent 33.4 G/DL (32.0-36.0) Red Cell Distribution Width 12.8 % (11.6-14.8) Platelet Count 240 K/UL (150-450) Mean Platelet Volume 4.9 FL (6.5-10.1) L Neutrophils (%) (Auto) 50.1 % (45.0-75.0) Lymphocytes (%) (Auto) 33.4 % (20.0-45.0) Monocytes (%) (Auto) 12.3 % (1.0-10.0) H Eosinophils (%) (Auto) 3.4 % (0.0-3.0) H Basophils (%) (Auto) 0.8 % (0.0-2.0) Sodium Level 137 MMOL/L (136-145) Potassium Level 3.7 MMOL/L (3.5-5.1) Chloride Level 101 MMOL/L (98-107) Carbon Dioxide Level 35 MMOL/L (21-32) H Anion Gap 1 mmol/L (5-15) L Blood Urea Nitrogen 19 mg/dL (7-18) H Creatinine 1.1 MG/DL (0.55-1.30) Estimat Glomerular Filtration Rate > 60 mL/min (>60) Glucose Level 93 MG/DL (74-106) Calcium Level 8.3 MG/DL (8.5-10.1) L Magnesium Level 1.9 MG/DL (1.8-2.4) General: well developed, other - Morbidly obese Head: normocophalic Neck: no rigidity EENT: benign Neurologic Exam Mental Status: awake, alert, oriented x4, normal cognition, good mathematical skills, normal recent memory, normal remote memory, preserved visuospatial function Speech: normal speech, no dysarthia Language: normal language, no aphasia Cranial Nerve II: fundus normal, visual bonilla, no papilledema Cranial Nerves III, IV, : PERRLA, EOMI, pupils Cranial Nerve V: normal facial sensations, temporales function normal, masseters function normal, pterygoids function normal Cranial Nerve VII: normal facial expressions, other Cranial Nerve VIII: normal hearing, no nystagmus Cranial Nerve IX: normal palate elevation, gag response Cranial Nerve X: no voice hoarseness Cranial Nerve XI: SCM symmetric, trapezii function normal Cranial Nerve XII: tongue midline, no tongue atrophy/fasciculations Motor System: normal muscle tone, no involuntary movement, no muscle wasting Sensory: normal pinprick, normal light touch, normal position sense, normal graphesthesia Coordination: normal heel to villarreal bilaterally, negative Romberg test Deep Tendon Reflexes: 1+ bicep (L), 1+ bicep (R), 1+ tricep (L), 1+ tricep (R) , 1+ brachioradialis (L), 1+ brachioradialis (R), 1+ knee (L), 1+ knee (R), 1+ ankle (L), 1+ ankle (R) Reflexes: flexor plantar (L), flexor plantar (R); extensor plantar (L), extensor plantar (R) Stance: other - Broad based Gait: stable Objective Left arm, predominantly hand weakness at this time. Alert and oriented Ambulatory with cellulitis persisting on BLE He does not have proximal left arm weakness at this time, mild facial weakness, tongue deviated on exam Impression/Recommendations Problems: (1) Seizures Assessment & Plan: Keppra 2000mg BID PO Maintain SBP<140 Q4 Hour Neuro Checks Ativan 2mg PRN for seizure activity CT Head w/o contrast when able to rule out CVA - also for consideration of MRI if CT negative. - low suspicion of CVA due to normotensive status without risk factors of elevated BP/ HgBA1c or thyroid dysfunction. Na 135-145 Continue pain management - Lyrica 100mg TID - Continue Gabapentin 600mg TID Intense PT recommended EEG negative for seizures, but consistent with mild encephalopathy. Same on Repeat Correct hypocalcemia (2) Morbid obesity (3) COPD (chronic obstructive pulmonary disease) (4) Uncontrolled seizures (5) Left-sided weakness Assessment & Plan: No seizure activity captured on EEG but mild to moderate degree of encephalopathy seen. Repeat EEG same as previous (6) Knee osteomyelits, right Status: stable, progressing Recommendations Q4 hour Neuro Obs - NO NIGHTTIME OBS if stable Prevent delirium Maintain regular sleep schedule and reduce nighttime activities such as observations (if unnecessary) Maintain Keppra dose at 2g BID, no additional meds at this time. Discharge planning for [facility]. Patient neurologically stable at this time for discharge Vicky Taylor N.P. Jan 05, 2019 03:04
[2019-01-05 04:00] VITALS: BP 143/79
[2019-01-05 05:56] LABS: BASOPHILS % (AUTO) 0.8 % (0.0-2.0); HEMATOCRIT 34.9 % (42.0-52.0); HEMOGLOBIN 11.5 G/DL (14.2-18.0); LYMPHOCYTES % (AUTO) 31.2 % (20.0-45.0); MEAN CORPUSCULAR VOLUME 91 FL (80-99); MONOCYTES % (AUTO) 7.9 % (1.0-10.0); NEUTROPHILS % (AUTO) 57.1 % (45.0-75.0); PLATELET COUNT 249 K/UL (150-450); RED BLOOD COUNT 3.85 M/UL (4.70-6.10)
[2019-01-05 06:33] LABS: ANION GAP 1 mmol/L (5-15); BLOOD UREA NITROGEN 18 mg/dL (7-18); CALCIUM 8.6 MG/DL (8.5-10.1); CARBON DIOXIDE 36 MMOL/L (21-32); CHLORIDE 101 MMOL/L (98-107); POTASSIUM 3.8 MMOL/L (3.5-5.1); SODIUM 138 MMOL/L (136-145)
--- NOTE | 2019-01-05 07:45 | NUR ---
NURSE NOTES: Patient awake and alert and oriented,sitting up.Picc Line in the upper right arm intact,dressing clean.Patient ate breakfast.Call light within reach.
[2019-01-05 08:00] VITALS: BP 121/74
[2019-01-05] MEDS: DULoxetine 30mg cap ORAL SCH (08:41)
[2019-01-05] MEDS: Magnesium Oxide 400mg tab ORAL SCH ×3 (08:44→18:33)
[2019-01-05] MEDS: Losartan 25mg tab ORAL SCH (08:48)
[2019-01-05] MEDS: Lyrica 50mg cap ORAL SCH ×3 (08:48→18:32)
[2019-01-05] MEDS: Heparin 5000 units/ml inj SUBQ SCH ×2 (08:50→21:03)
--- NOTE | 2019-01-05 11:17 | NUR ---
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 RIGHT SIDED HEART FAILURE VS: BP 143/79, P 105, T 99.0, RR 20, SpO2 93 RBC 3.85, H&H 11.5/34.9 IS:HEPARIN SUBQ LYRICA 100mg GABAPENTIN 600mg PLAVIX 75mg MAGNESIUM OXIDE 800mg CYMBALTA 30mg KEPPRA 2000mg METHADONE 10mg DILAUDID 4mg IVP LASIX 20mg ALBUTEROL 3ml HHN MED/SURG STATUS
--- NOTE | 2019-01-05 11:54 | Pulmonology Progress Note ---
Assessment/Plan Problems: (1) Morbid obesity (2) Peripheral edema (3) Cellulitis (4) Seizures (5) Cerebrovascular accident (6) Left-sided weakness (7) COPD (chronic obstructive pulmonary disease) (8) Right heart failure (9) Lumbar spondylosis (10) ADALBERTO (obstructive sleep apnea) Assessment/Plan no new complains coughing up dark/ brown phlegm. add levofloxacin all meds /notes reviewed pt/ot increase dialudid to 4 mg and add Methadone 10Q8 respiratory treatment titrate fio2 to sat of 92% dvt prophylaxis Subjective ROS Limited/Unobtainable: No Constitutional: Reports: no symptoms HEENT: Repors: no symptoms Allergies: Coded Allergies: ASPIRIN (Verified Allergy, Unknown, 07/14/18) KETOROLAC (Verified Allergy, Unknown, 07/14/18) PENICILLINS (Verified Allergy, Unknown, 12/23/18) tolerated Ancef on 08/2018 Objective Last 24 Hour Vital Signs Date Time Temp Pulse Resp B/P (MAP) Pulse Ox O2 Delivery O2 Flow Rate FiO2 01/05/19 09:07 Room Air 01/05/19 08:48 99/59 01/05/19 08:00 99.0 100 18 121/74 (90) 93 01/05/19 07:25 98.5 01/05/19 04:00 98.5 105 20 143/79 (100) 95 01/05/19 02:46 89 18 97 Room Air 21 01/05/19 02:32 92 20 93 Room Air 21 01/05/19 00:00 98.4 92 18 129/79 (96) 94 01/04/19 21:00 Room Air 01/04/19 20:42 90 20 96 Room Air 21 01/04/19 20:42 90 20 96 Room Air 21 01/04/19 20:35 100 20 89 Room Air 21 01/04/19 20:00 98.1 81 18 137/79 (98) 94 01/04/19 16:00 98.2 72 17 126/79 (95) 95 01/04/19 12:00 97.2 68 17 137/76 (96) 92 Intake and Output 01/04/19 01/05/19 18:59 06:59 Intake Total 1500 ml Balance 1500 ml Other 1500 ml # Voids 3 Objective HEENT: normocephalic, atraumatic Respiratory/Chest: chest wall non-tender, lungs clear Cardiovascular: normal peripheral pulses, normal rate Abdomen: normal bowel sounds, no organomegaly, massive fat on abdomen Extremities: no cyanosis Skin: no lesions Laboratory Tests 01/05/19 05:00: White Blood Count 6.0, Red Blood Count 3.85L, Hemoglobin 11.5L, Hematocrit 34.9L , Mean Corpuscular Volume 91, Mean Corpuscular Hemoglobin 30.0, Mean Corpuscular Hemoglobin Concent 33.0, Red Cell Distribution Width 13.0, Platelet Count 249, Mean Platelet Volume 5.2L, Neutrophils (%) (Auto) 57.1, Lymphocytes ( %) (Auto) 31.2, Monocytes (%) (Auto) 7.9, Eosinophils (%) (Auto) 3.0, Basophils (%) (Auto) 0.8, Sodium Level 138, Potassium Level 3.8, Chloride Level 101, Carbon Dioxide Level 36H, Anion Gap 1L, Blood Urea Nitrogen 18, Creatinine 1.0, Estimat Glomerular Filtration Rate > 60, Glucose Level 142H, Calcium Level 8.6 Current Medications Medications (Trade) Dose Ordered Sig/Luis Route PRN Reason Start Time Stop Time Status Last Admin Dose Admin Acetaminophen (Tylenol) 650 mg Q4H PRN ORAL fever 12/15/18 14:54 01/14/19 14:53 Albuterol/ Ipratropium (Albuterol/ Ipratropium) 3 ml Q4H PRN HHN Shortness of Breath 01/04/19 20:30 01/09/19 20:29 01/05/19 02:32 Atorvastatin Calcium (Lipitor) 80 mg BEDTIME ORAL 12/15/18 21:00 01/14/19 20:59 01/04/19 20:45 Chlorhexidine Gluconate (Ruby-Hex 2%) 1 applic DAILY@2000 TOPIC 12/22/18 20:00 01/21/19 19:59 01/04/19 20:45 Clonidine HCl (Catapres Tab) 0.1 mg Q4H PRN ORAL For High Blood Pressure 12/15/18 14:56 01/14/19 14:55 Clopidogrel Bisulfate (Plavix) 75 mg DAILY ORAL 12/16/18 09:00 01/14/19 08:59 01/05/19 08:44 Daptomycin 900 mg/ Sodium Chloride 55 ml @ 110 mls/hr Q24H IV 12/25/18 14:00 01/07/19 13:59 01/04/19 14:38 Dextrose (Dextrose 50%) 25 ml Q30M PRN IV Hypoglycemia 12/15/18 15:15 01/13/19 23:44 Dextrose (Dextrose 50%) 50 ml Q30M PRN IV Hypoglycemia 12/15/18 15:15 01/13/19 23:44 Duloxetine HCl (Cymbalta) 30 mg DAILY ORAL 12/16/18 09:00 01/14/19 08:59 01/05/19 08:41 Furosemide (Lasix) 20 mg Q6HR IV 12/22/18 00:00 01/21/19 00:00 01/05/19 05:09 Gabapentin (Neurontin) 600 mg THREE TIMES A DAY ORAL 12/15/18 18:00 01/14/19 08:59 01/05/19 08:46 Heparin Sodium (Porcine) (Heparin 5000 units/ml) 5,000 units EVERY 12 HOURS SUBQ 12/15/18 21:00 01/14/19 08:59 01/05/19 08:50 Hydromorphone HCl (Dilaudid) 4 mg Q4H PRN IVP Breakthrough Pain 01/01/19 10:29 01/08/19 10:28 01/05/19 11:21 Levetiracetam (Keppra) 2,000 mg Q12HR ORAL 01/01/19 21:00 01/18/19 08:59 01/05/19 08:41 Levofloxacin (Levaquin) 500 mg Q24H ORAL 12/30/18 13:00 01/06/19 12:59 01/04/19 13:04 Losartan Potassium (Cozaar) 25 mg DAILY ORAL 12/29/18 13:45 01/28/19 13:44 01/02/19 09:28 Magnesium Oxide (Mag-Ox 400mg) 800 mg THREE TIMES A DAY ORAL 01/02/19 18:00 02/01/19 17:59 01/05/19 08:44 Methadone HCl (Methadone HCl) 10 mg EVERY 8 HOURS ORAL 12/29/18 22:00 01/05/19 21:59 01/05/19 05:10 Nitroglycerin (Ntg) 0.4 mg Q5M X 3 DOSES PRN SL Prn Chest Pain 12/15/18 14:45 01/13/19 23:44 01/02/19 11:59 Ondansetron HCl (Zofran) 4 mg Q6H PRN IVP Nausea & Vomiting 12/15/18 14:55 01/14/19 14:54 12/17/18 10:19 Polyethylene Glycol (Miralax) 17 gm HSPRN PRN ORAL Constipation 12/15/18 14:55 01/14/19 14:54 Pregabalin (Lyrica) 100 mg THREE TIMES A DAY ORAL 12/26/18 09:00 01/19/19 22:59 01/05/19 08:48 Promethazine HCl/ Codeine (Phenergan with Codeine) 5 ml Q4H PRN ORAL For Cough 12/28/18 12:00 01/27/19 11:59 01/01/19 01:34 Trazodone HCl (Desyrel) 100 mg BEDTIME ORAL 12/15/18 21:00 01/14/19 20:59 01/04/19 20:45 Bill Dixon MD Jan 05, 2019 11:54
[2019-01-05 12:00] VITALS: BP 125/70
[2019-01-05] MEDS: Levofloxacin 500mg tab ORAL SCH (13:14)
[2019-01-05] MEDS: NS IV SCH (14:00)
[2019-01-05] MEDS: DAPTOMYCIN IV SCH (14:00)
--- NOTE | 2019-01-05 14:08 | General Progress Note ---
Assessment/Plan Problem List: (1) Abdominal pannus ICD Codes: E65 - Localized adiposity SNOMED: 8874352563810 (2) Peripheral edema ICD Codes: R60.9 - Edema, unspecified SNOMED: 786693554 (3) Abdominal wall cellulitis ICD Codes: L03.311 - Cellulitis of abdominal wall SNOMED: 10379644 (4) Leg pain ICD Codes: M79.606 - Pain in leg, unspecified SNOMED: 98549540 (5) COPD (chronic obstructive pulmonary disease) ICD Codes: J44.9 - Chronic obstructive pulmonary disease, unspecified SNOMED: 89662945 (6) Seizures ICD Codes: R56.9 - Unspecified convulsions SNOMED: 55159601 (7) Morbid obesity ICD Codes: E66.01 - Morbid (severe) obesity due to excess calories SNOMED: 436186262 (8) Cerebrovascular accident ICD Codes: I63.9 - Cerebral infarction, unspecified SNOMED: 540046073 (9) Left-sided weakness ICD Codes: R53.1 - Weakness SNOMED: 330452537 Status: stable, progressing Assessment/Plan: pt diet neuro f/u wound care abx pain control cbc bmp am dc to snf if clear Subjective Constitutional: Reports: weakness Allergies: Coded Allergies: ASPIRIN (Verified Allergy, Unknown, 07/14/18) KETOROLAC (Verified Allergy, Unknown, 07/14/18) PENICILLINS (Verified Allergy, Unknown, 12/23/18) tolerated Ancef on 08/2018 All Systems: reviewed and negative except above Subjective sleepy calm Objective Last 24 Hour Vital Signs Date Time Temp Pulse Resp B/P (MAP) Pulse Ox O2 Delivery O2 Flow Rate FiO2 01/05/19 12:00 99.1 91 18 125/ 94 01/05/19 09:07 Room Air 01/05/19 08:48 99/59 01/05/19 08:00 99.0 100 18 121/74 (90) 93 01/05/19 07:38 88 18 96 Room Air 21 01/05/19 07:25 98.5 01/05/19 04:00 98.5 105 20 143/79 (100) 95 01/05/19 02:46 89 18 97 Room Air 21 01/05/19 02:32 92 20 93 Room Air 21 01/05/19 00:00 98.4 92 18 129/79 (96) 94 01/04/19 21:00 Room Air 01/04/19 20:42 90 20 96 Room Air 21 01/04/19 20:42 90 20 96 Room Air 21 01/04/19 20:35 100 20 89 Room Air 21 01/04/19 20:00 98.1 81 18 137/79 (98) 94 01/04/19 16:00 98.2 72 17 126/79 (95) 95 Intake and Output 01/04/19 01/05/19 18:59 06:59 Intake Total 1500 ml Balance 1500 ml Other 1500 ml # Voids 3 Laboratory Tests 01/05/19 05:00: White Blood Count 6.0, Red Blood Count 3.85L, Hemoglobin 11.5L, Hematocrit 34.9L , Mean Corpuscular Volume 91, Mean Corpuscular Hemoglobin 30.0, Mean Corpuscular Hemoglobin Concent 33.0, Red Cell Distribution Width 13.0, Platelet Count 249, Mean Platelet Volume 5.2L, Neutrophils (%) (Auto) 57.1, Lymphocytes ( %) (Auto) 31.2, Monocytes (%) (Auto) 7.9, Eosinophils (%) (Auto) 3.0, Basophils (%) (Auto) 0.8, Sodium Level 138, Potassium Level 3.8, Chloride Level 101, Carbon Dioxide Level 36H, Anion Gap 1L, Blood Urea Nitrogen 18, Creatinine 1.0, Estimat Glomerular Filtration Rate > 60, Glucose Level 142H, Calcium Level 8.6 Height (Feet): 5 Height (Inches): 10.00 Weight (Pounds): 494 General Appearance: lethargic EENT: normal ENT inspection Neck: normal alignment Cardiovascular: normal peripheral pulses, normal rate, regular rhythm Respiratory/Chest: chest wall non-tender, lungs clear Abdomen: normal bowel sounds, soft, distended Extremities: normal inspection Edema: 1+ Arm (L), 1+ Arm (R), 1+ Leg (L), 1+ Leg (R), 1+ Pedal (L), 1+ Pedal ( R), 1+ Generalized Edema: trace edema Neurologic: responsive, motor weakness Skin: normal pigmentation, warm/dry Objective bl' villarreal dressing c&d Ernesto Nicole DO Jan 05, 2019 14:08
--- NOTE | 2019-01-05 14:23 | NUR ---
EQUIPMENT CLEANER AND TESTER NOTES FAXED REFERRAL TO [facility], PATIENT WAS DENIED. FAXED REFERRAL TO SAURAV FLOYD F# [phone] WILL FOLLOW UP.
--- NOTE | 2019-01-05 14:33 | NUR ---
RD ASSESSMENT & RECOMMENDATIONS SEE CARE ACTIVITY FOR COMPLETE ASSESSMENT DAILY ESTIMATED NEEDS: Needs based on obesity, pulmonary, 107kg abw 15-20 kcals/kg 1525-0563 total kcals 1-1.5 g protein/kg 107-161 g total protein 15-25ml/kcal mL/kg 6661-1363 total fluid mLs NUTRITION DIAGNOSIS: Decreased sodium and fat intake needs R/T cardiac h/o and morbid obesity as evidenced by h/o CHF, CVA, w/ BMI>50, @230% of [place] Body Weight. CURRENT DIET: Regular PO DIET RECOMMENDATIONS: REC DIET CHANGE TO -> CARDIAC ADDITIONAL RECOMMENDATIONS: * Obtain a standing weight as able or calibrated bedscale wt for accurate * Diet change to Cardiac * Pt not receptive to diet edu at this time * Monitor lytes closely while on diuretics, replete as needed
--- NOTE | 2019-01-05 15:00 | NUR ---
PT NOTE Attempted to see patient for PT treatment. Patient declined to participate at this time, states he is waiting for his pain medication. Richelle HINOJOSA notified, will follow up in a.m.
--- NOTE | 2019-01-05 15:06 | Cardiology Report ---
APPROVED REPORT EKG Measurement Heart [id number] Normal sinus rhythm Normal ECG
--- NOTE | 2019-01-05 15:16 | Nephrology Progress Note ---
Assessment/Plan Problem List: (1) Hyponatremia (2) Morbid obesity (3) COPD (chronic obstructive pulmonary disease) Plan Mag IV as needed Mag PO TID Low Na resolved cont per consultants Subjective ROS Limited/Unobtainable: No Constitutional: Reports: malaise Objective Objective Last 24 Hour Vital Signs Date Time Temp Pulse Resp B/P (MAP) Pulse Ox O2 Delivery O2 Flow Rate FiO2 01/05/19 12:00 99.1 91 18 125/ 94 01/05/19 09:07 Room Air 01/05/19 08:48 99/59 01/05/19 08:00 99.0 100 18 121/74 (90) 93 01/05/19 07:38 88 18 96 Room Air 21 01/05/19 07:25 98.5 01/05/19 04:00 98.5 105 20 143/79 (100) 95 01/05/19 02:46 89 18 97 Room Air 21 01/05/19 02:32 92 20 93 Room Air 21 01/05/19 00:00 98.4 92 18 129/79 (96) 94 01/04/19 21:00 Room Air 01/04/19 20:42 90 20 96 Room Air 21 01/04/19 20:42 90 20 96 Room Air 21 01/04/19 20:35 100 20 89 Room Air 21 01/04/19 20:00 98.1 81 18 137/79 (98) 94 01/04/19 16:00 98.2 72 17 126/79 (95) 95 Intake and Output 01/04/19 01/05/19 18:59 06:59 Intake Total 1500 ml Balance 1500 ml Other 1500 ml # Voids 3 Laboratory Tests 01/05/19 05:00: White Blood Count 6.0, Red Blood Count 3.85L, Hemoglobin 11.5L, Hematocrit 34.9L , Mean Corpuscular Volume 91, Mean Corpuscular Hemoglobin 30.0, Mean Corpuscular Hemoglobin Concent 33.0, Red Cell Distribution Width 13.0, Platelet Count 249, Mean Platelet Volume 5.2L, Neutrophils (%) (Auto) 57.1, Lymphocytes ( %) (Auto) 31.2, Monocytes (%) (Auto) 7.9, Eosinophils (%) (Auto) 3.0, Basophils (%) (Auto) 0.8, Sodium Level 138, Potassium Level 3.8, Chloride Level 101, Carbon Dioxide Level 36H, Anion Gap 1L, Blood Urea Nitrogen 18, Creatinine 1.0, Estimat Glomerular Filtration Rate > 60, Glucose Level 142H, Calcium Level 8.6 Height (Feet): 5 Height (Inches): 10.00 Weight (Pounds): 494 General Appearance: no apparent distress Cardiovascular: normal rate Respiratory/Chest: lungs clear Abdomen: soft Objective no change Devante Taylor MD Jan 05, 2019 15:16
--- NOTE | 2019-01-05 15:33 | Infectious Diseases Prog Note ---
Assessment/Plan Assessment/Plan B/l Leg cellulitis and panniculitis- in the setting of chronic venous stasis L side weakness/spasticity- thought be 2ry to seizures- r/O CVA- no active infectious process at present (pt afebrile- doubt meningitis at this moment) Afebrile No leukocytosis -CXR: No acute findings CVA HTN bipolar disorder w/ psychotic features tobacco abuse anxiety disorder chronic pain CHF seizure disorder COPD morbid obesity Dm2 HTN SNF resident Plan: IV Dapto d# 10 ( pt Cr increased 30% will avoid Vanco) Would treat for 14 day ( End date 01/07/19) 12/25 sp Bactrim #4/14 and add IV Ancef #3/14 for cellulitis - Patient pooly compliant with leg elevation and wound dressing instruction -Monitor CBC/CMP, temperatures -neuro f/u- plan for CT head, include neck as lump in back of neck; however pt did not fit on CT scan machine due to weight -aspiration precautions -wound care per hospital protocol Subjective Allergies: Coded Allergies: ASPIRIN (Verified Allergy, Unknown, 07/14/18) KETOROLAC (Verified Allergy, Unknown, 07/14/18) PENICILLINS (Verified Allergy, Unknown, 12/23/18) tolerated Ancef on 08/2018 Subjective JANEE Afebrile No leukocytosis Says he is letting his wound air out every day like i asked him to. Objective Vital Signs Last 24 Hour Vital Signs Date Time Temp Pulse Resp B/P (MAP) Pulse Ox O2 Delivery O2 Flow Rate FiO2 01/05/19 12:00 99.1 91 18 125/ 94 01/05/19 09:07 Room Air 01/05/19 08:48 99/59 01/05/19 08:00 99.0 100 18 121/74 (90) 93 01/05/19 07:38 88 18 96 Room Air 21 01/05/19 07:25 98.5 01/05/19 04:00 98.5 105 20 143/79 (100) 95 01/05/19 02:46 89 18 97 Room Air 21 01/05/19 02:32 92 20 93 Room Air 21 01/05/19 00:00 98.4 92 18 129/79 (96) 94 01/04/19 21:00 Room Air 01/04/19 20:42 90 20 96 Room Air 21 01/04/19 20:42 90 20 96 Room Air 21 01/04/19 20:35 100 20 89 Room Air 21 01/04/19 20:00 98.1 81 18 137/79 (98) 94 01/04/19 16:00 98.2 72 17 126/79 (95) 95 Height (Feet): 5 Height (Inches): 10.00 Weight (Pounds): 494 Objective GEN: NAD, Satting well on RA HEENT: NCAT, MMM Respiratory/Chest: CTAB, No W Cardiovascular: RRR, S1, S2 Abdomen: Soft, ND Ext. LE in bandages B/L with serous drainage Laboratory Tests Test 01/05/19 05:00 White Blood Count 6.0 K/UL (4.8-10.8) Red Blood Count 3.85 M/UL (4.70-6.10) L Hemoglobin 11.5 G/DL (14.2-18.0) L Hematocrit 34.9 % (42.0-52.0) L Mean Corpuscular Volume 91 FL (80-99) Mean Corpuscular Hemoglobin 30.0 PG (27.0-31.0) Mean Corpuscular Hemoglobin Concent 33.0 G/DL (32.0-36.0) Red Cell Distribution Width 13.0 % (11.6-14.8) Platelet Count 249 K/UL (150-450) Mean Platelet Volume 5.2 FL (6.5-10.1) L Neutrophils (%) (Auto) 57.1 % (45.0-75.0) Lymphocytes (%) (Auto) 31.2 % (20.0-45.0) Monocytes (%) (Auto) 7.9 % (1.0-10.0) Eosinophils (%) (Auto) 3.0 % (0.0-3.0) Basophils (%) (Auto) 0.8 % (0.0-2.0) Sodium Level 138 MMOL/L (136-145) Potassium Level 3.8 MMOL/L (3.5-5.1) Chloride Level 101 MMOL/L (98-107) Carbon Dioxide Level 36 MMOL/L (21-32) H Anion Gap 1 mmol/L (5-15) L Blood Urea Nitrogen 18 mg/dL (7-18) Creatinine 1.0 MG/DL (0.55-1.30) Estimat Glomerular Filtration Rate > 60 mL/min (>60) Glucose Level 142 MG/DL (74-106) H Calcium Level 8.6 MG/DL (8.5-10.1) Current Medications Medications (Trade) Dose Ordered Sig/Luis Route PRN Reason Start Time Stop Time Status Last Admin Dose Admin Acetaminophen (Tylenol) 650 mg Q4H PRN ORAL fever 12/15/18 14:54 01/14/19 14:53 Albuterol/ Ipratropium (Albuterol/ Ipratropium) 3 ml Q4H PRN HHN Shortness of Breath 01/04/19 20:30 01/09/19 20:29 01/05/19 02:32 Atorvastatin Calcium (Lipitor) 80 mg BEDTIME ORAL 12/15/18 21:00 01/14/19 20:59 01/04/19 20:45 Chlorhexidine Gluconate (Ruby-Hex 2%) 1 applic DAILY@2000 TOPIC 12/22/18 20:00 01/21/19 19:59 01/04/19 20:45 Clonidine HCl (Catapres Tab) 0.1 mg Q4H PRN ORAL For High Blood Pressure 12/15/18 14:56 01/14/19 14:55 Clopidogrel Bisulfate (Plavix) 75 mg DAILY ORAL 12/16/18 09:00 01/14/19 08:59 01/05/19 08:44 Daptomycin 900 mg/ Sodium Chloride 55 ml @ 110 mls/hr Q24H IV 12/25/18 14:00 01/07/19 13:59 01/05/19 14:00 Dextrose (Dextrose 50%) 25 ml Q30M PRN IV Hypoglycemia 12/15/18 15:15 01/13/19 23:44 Dextrose (Dextrose 50%) 50 ml Q30M PRN IV Hypoglycemia 12/15/18 15:15 01/13/19 23:44 Duloxetine HCl (Cymbalta) 30 mg DAILY ORAL 12/16/18 09:00 01/14/19 08:59 01/05/19 08:41 Furosemide (Lasix) 20 mg Q6HR IV 12/22/18 00:00 01/21/19 00:00 01/05/19 12:07 Gabapentin (Neurontin) 600 mg THREE TIMES A DAY ORAL 12/15/18 18:00 01/14/19 08:59 01/05/19 13:13 Heparin Sodium (Porcine) (Heparin 5000 units/ml) 5,000 units EVERY 12 HOURS SUBQ 12/15/18 21:00 01/14/19 08:59 01/05/19 08:50 Hydromorphone HCl (Dilaudid) 4 mg Q4H PRN IVP Breakthrough Pain 01/01/19 10:29 01/08/19 10:28 01/05/19 15:24 Levetiracetam (Keppra) 2,000 mg Q12HR ORAL 01/01/19 21:00 01/18/19 08:59 01/05/19 08:41 Levofloxacin (Levaquin) 500 mg Q24H ORAL 12/30/18 13:00 01/06/19 12:59 01/05/19 13:14 Losartan Potassium (Cozaar) 25 mg DAILY ORAL 12/29/18 13:45 01/28/19 13:44 01/02/19 09:28 Magnesium Oxide (Mag-Ox 400mg) 800 mg THREE TIMES A DAY ORAL 01/02/19 18:00 02/01/19 17:59 01/05/19 13:13 Methadone HCl (Methadone HCl) 10 mg EVERY 8 HOURS ORAL 12/29/18 22:00 01/05/19 21:59 01/05/19 13:58 Nitroglycerin (Ntg) 0.4 mg Q5M X 3 DOSES PRN SL Prn Chest Pain 12/15/18 14:45 01/13/19 23:44 01/02/19 11:59 Ondansetron HCl (Zofran) 4 mg Q6H PRN IVP Nausea & Vomiting 12/15/18 14:55 01/14/19 14:54 12/17/18 10:19 Polyethylene Glycol (Miralax) 17 gm HSPRN PRN ORAL Constipation 12/15/18 14:55 01/14/19 14:54 Pregabalin (Lyrica) 100 mg THREE TIMES A DAY ORAL 12/26/18 09:00 01/19/19 22:59 01/05/19 13:14 Promethazine HCl/ Codeine (Phenergan with Codeine) 5 ml Q4H PRN ORAL For Cough 12/28/18 12:00 01/27/19 11:59 01/01/19 01:34 Trazodone HCl (Desyrel) 100 mg BEDTIME ORAL 12/15/18 21:00 01/14/19 20:59 01/04/19 20:45 Elliot Chauhan MD Jan 05, 2019 15:33
[2019-01-05 16:00] VITALS: BP 112/62
--- NOTE | 2019-01-05 16:45 | Progress Note ---
DATE: 01/05/2019 SUBJECTIVE: This is a 53-year-old male patient with status post cerebrovascular accident. This patient continues to have some mood lability, confusion, anxiety and depression worsened by stress of his medical illness. That is why, the attending has requested daily psychiatric consultation. MENTAL STATUS EXAMINATION: This is a 53-year-old male. Appearance is disheveled. Attitude, irritable and agitated. Affect, guarded and restricted. Intellect poor. Mood, depressed and anxious. Motor activity, psychomotor agitation. Attention span is poor. Orientation x3. Speech is normal volume. Thought process, disorganized. Thought content, denies auditory or visual hallucinations or delusions. Insight and judgment is poor. DIAGNOSIS: Major depressive disorder, mild, recurrent, without psychotic features. PLAN: Treat this patient with a medication regimen of Cymbalta 30 mg daily, Neurontin 600 mg three times a day, and trazodone 100 at bedtime. Provide him with 20 minutes of cognitive behavioral therapy to help him identify his automatic negative thoughts, help him convert those negative thoughts to more positive thoughts to reduce depression, anxiety, and mood lability. Chart reviewed. Discussed with staff. Seen and assessed in his room. Laney Mcghee M.D. DR: GUTIERREZ JOB#: [id number] CC:
--- NOTE | 2019-01-05 19:17 | NUR ---
HAND-OFF: Report given to RUMA RN.
--- NOTE | 2019-01-05 19:20 | NUR ---
NURSE NOTES: RECEIVED PT FROM MICAELA LUCAS. PT IS AWAKE, AAOX4. PT IS ON ROOM AIR, UNLABORED BREATHING NOTED. PT C/O PAIN 9/10 ON BILATERAL LEGS. DRESSINGS ON BILATERAL LEGS ARE DRY AND INTACT. PICC LINE DL NOTED ON RIGHT UPPER ARM, DRESSING IS DRY AND INTACT, CHANGED ON 01/04/19. BED IS LOCKED AT THE LOWEST POSITION, BED ALARMS ACTIVE, SIDE RAILS UP X2 AND PADDED FOR SEIZURE PRECAUTION, AND CALL LIGHT IS WITHIN REACH. WILL CONTINUE TO MONITOR.
[2019-01-05] MEDS: Dyna-Hex 2% Top Sol 2oz TOPIC SCH (19:40)
[2019-01-05 20:00] VITALS: BP 99/59
[2019-01-05] MEDS: TraZODone 100mg tab ORAL SCH (21:02)
[2019-01-05] MEDS: Atorvastatin 80mg tab ORAL SCH (21:02)
--- NOTE | 2019-01-05 23:00 | NUR ---
NURSE NOTES: CHANGED DRESSINGS ON BILATERAL LEGS AND ABDOMEN.
[2019-01-06] VITALS: BP 105/64
[2019-01-06] MEDS: Albuterol/Ipratropium 3ml neb HHN PRN ×2 (00:15→21:35)
[2019-01-06 04:00] VITALS: BP 100/66
[2019-01-06 06:55] LABS: ANION GAP 2 mmol/L (5-15); BLOOD UREA NITROGEN 17 mg/dL (7-18); CALCIUM 8.7 MG/DL (8.5-10.1); CARBON DIOXIDE 36 MMOL/L (21-32); CHLORIDE 101 MMOL/L (98-107); POTASSIUM 3.8 MMOL/L (3.5-5.1); SODIUM 139 MMOL/L (136-145)
--- NOTE | 2019-01-06 07:00 | NUR ---
HAND-OFF: Report given to MICAELA LEVY.
--- NOTE | 2019-01-06 07:05 | NUR ---
NURSE NOTES: Patient sitting in bed eating breakfast. Complain of pain 9/10 and will administer pain medication as ordered. Wound dressing intact and dry. PICC line dressing intact and dry. Bed lowest position. Call light within reach. Will continue to monitor.
[2019-01-06 07:14] LABS: BASOPHILS % (AUTO) 0.8 % (0.0-2.0); EOSINOPHILS % (AUTO) 2.9 % (0.0-3.0); HEMATOCRIT 34.1 % (42.0-52.0); HEMOGLOBIN 11.3 G/DL (14.2-18.0); MEAN CORPUSCULAR VOLUME 91 FL (80-99); MONOCYTES % (AUTO) 9.8 % (1.0-10.0); NEUTROPHILS % (AUTO) 55.5 % (45.0-75.0); PLATELET COUNT 251 K/UL (150-450); RED BLOOD COUNT 3.75 M/UL (4.70-6.10); RED CELL DISTRIBUTION WIDTH 13.2 % (11.6-14.8); WHITE BLOOD COUNT 6.5 K/UL (4.8-10.8)
[2019-01-06 08:00] VITALS: BP 124/50
--- NOTE | 2019-01-06 08:14 | General Progress Note ---
Assessment/Plan Problem List: (1) Abdominal pannus ICD Codes: E65 - Localized adiposity SNOMED: 2557391348468 (2) Peripheral edema ICD Codes: R60.9 - Edema, unspecified SNOMED: 524370905 (3) Abdominal wall cellulitis ICD Codes: L03.311 - Cellulitis of abdominal wall SNOMED: 70440341 (4) Leg pain ICD Codes: M79.606 - Pain in leg, unspecified SNOMED: 20055648 (5) COPD (chronic obstructive pulmonary disease) ICD Codes: J44.9 - Chronic obstructive pulmonary disease, unspecified SNOMED: 96738975 (6) Seizures ICD Codes: R56.9 - Unspecified convulsions SNOMED: 95272293 (7) Morbid obesity ICD Codes: E66.01 - Morbid (severe) obesity due to excess calories SNOMED: 340849174 (8) Cerebrovascular accident ICD Codes: I63.9 - Cerebral infarction, unspecified SNOMED: 875006543 (9) Left-sided weakness ICD Codes: R53.1 - Weakness SNOMED: 565077526 Status: stable, progressing Assessment/Plan: pt diet neuro f/u wound care abx pain control cbc bmp am dc to snf if clear Subjective Constitutional: Reports: weakness Allergies: Coded Allergies: ASPIRIN (Verified Allergy, Unknown, 07/14/18) KETOROLAC (Verified Allergy, Unknown, 07/14/18) PENICILLINS (Verified Allergy, Unknown, 12/23/18) tolerated Ancef on 08/2018 All Systems: reviewed and negative except above Subjective sleepy calm Objective Last 24 Hour Vital Signs Date Time Temp Pulse Resp B/P (MAP) Pulse Ox O2 Delivery O2 Flow Rate FiO2 01/06/19 08:00 97.7 101 20 124/50 (74) 93 01/06/19 04:00 98.1 91 20 100/66 (77) 91 01/06/19 00:27 89 18 95 Nasal Cannula 2.0 28 01/06/19 00:15 89 20 90 Room Air 21 01/06/19 00:00 97.3 81 20 105/64 (78) 98 01/05/19 21:18 92 18 95 Room Air 21 01/05/19 21:00 Room Air 01/05/19 20:00 98.6 86 18 99/59 (72) 93 6/11/19 16:00 98.1 94 20 112/62 (79) 94 01/05/19 12:00 99.1 91 18 125/70 (88) 94 01/05/19 09:07 Room Air 01/05/19 08:48 99/59 Intake and Output 01/05/19 01/06/19 19:00 07:00 Intake Total 4000 ml Balance 4000 ml Intake Oral 4000 ml # Voids 8 3 # Bowel Movements 1 Laboratory Tests 01/06/19 06:00: White Blood Count 6.5, Red Blood Count 3.75L, Hemoglobin 11.3L, Hematocrit 34.1L , Mean Corpuscular Volume 91, Mean Corpuscular Hemoglobin 30.1, Mean Corpuscular Hemoglobin Concent 33.1, Red Cell Distribution Width 13.2, Platelet Count 251, Mean Platelet Volume 5.0L, Neutrophils (%) (Auto) 55.5, Lymphocytes ( %) (Auto) 31.0, Monocytes (%) (Auto) 9.8, Eosinophils (%) (Auto) 2.9, Basophils (%) (Auto) 0.8, Sodium Level 139, Potassium Level 3.8, Chloride Level 101, Carbon Dioxide Level 36H, Anion Gap 2L, Blood Urea Nitrogen 17, Creatinine 1.0, Estimat Glomerular Filtration Rate > 60, Glucose Level 93, Calcium Level 8.7 Height (Feet): 5 Height (Inches): 10.00 Weight (Pounds): 495 General Appearance: lethargic EENT: normal ENT inspection Neck: normal alignment Cardiovascular: normal peripheral pulses, normal rate, regular rhythm Respiratory/Chest: chest wall non-tender, lungs clear, normal breath sounds Abdomen: normal bowel sounds, distended Extremities: normal inspection Edema: 1+ Arm (L), 1+ Arm (R), 1+ Leg (L), 1+ Leg (R), 1+ Pedal (L), 1+ Pedal ( R), 1+ Generalized Edema: trace edema Neurologic: responsive Skin: normal pigmentation, warm/dry Objective bl' villarreal dressing c&Ernesto Garcia DO Jan 06, 2019 08:14
[2019-01-06] MEDS: Lyrica 50mg cap ORAL SCH ×3 (08:26→17:22)
[2019-01-06] MEDS: DULoxetine 30mg cap ORAL SCH (08:26)
[2019-01-06] MEDS: Magnesium Oxide 400mg tab ORAL SCH ×3 (08:26→17:22)
[2019-01-06] MEDS: Losartan 25mg tab ORAL SCH (08:27)
[2019-01-06] MEDS: Heparin 5000 units/ml inj SUBQ SCH ×2 (08:38→20:44)
--- NOTE | 2019-01-06 10:00 | NUR ---
PT WEEKLY PROGRESS NOTE Patient's progress continues to be limited by BLE pain and limited endurance. Patient able to transfer with SBA and to ambulate in hallway up to 150 ft with SBA without an AD. Patient would benefit from use of FWW for improved balance and safety with ambulation however patient declines. Patient will benefit from continued skilled inpatient PT intervention to improve level of functional mobility within patient tolerance.
--- NOTE | 2019-01-06 11:32 | Pulmonology Progress Note ---
Assessment/Plan Problems: (1) Morbid obesity (2) Peripheral edema (3) Cellulitis (4) Seizures (5) Cerebrovascular accident (6) Left-sided weakness (7) COPD (chronic obstructive pulmonary disease) (8) Right heart failure (9) Lumbar spondylosis (10) ADALBERTO (obstructive sleep apnea) Assessment/Plan no new complains coughing up dark/ brown phlegm. add levofloxacin all meds /notes reviewed pt/ot increase dialudid to 4 mg and add Methadone 10Q8 respiratory treatment titrate fio2 to sat of 92% dvt prophylaxis Subjective ROS Limited/Unobtainable: Yes Allergies: Coded Allergies: ASPIRIN (Verified Allergy, Unknown, 07/14/18) KETOROLAC (Verified Allergy, Unknown, 07/14/18) PENICILLINS (Verified Allergy, Unknown, 12/23/18) tolerated Ancef on 08/2018 Objective Last 24 Hour Vital Signs Date Time Temp Pulse Resp B/P (MAP) Pulse Ox O2 Delivery O2 Flow Rate FiO2 01/06/19 09:00 Room Air 01/06/19 08:27 124/50 01/06/19 08:05 100 18 94 Room Air 21 01/06/19 08:00 97.7 101 20 124/50 (74) 93 01/06/19 04:00 98.1 91 20 100/66 (77) 91 01/06/19 00:27 89 18 95 Nasal Cannula 2.0 28 01/06/19 00:15 89 20 90 Room Air 21 01/06/19 00:00 97.3 81 20 105/64 (78) 98 01/05/19 21:18 92 18 95 Room Air 21 01/05/19 21:00 Room Air 01/05/19 20:00 98.6 86 18 99/59 (72) 93 01/05/19 16:00 98.1 94 20 112/62 (79) 94 01/05/19 12:00 99.1 91 18 125/70 (88) 94 Intake and Output 01/05/19 01/06/19 18:59 06:59 Intake Total 4000 ml Balance 4000 ml Intake Oral 4000 ml # Voids 8 3 # Bowel Movements 1 Objective HEENT: normocephalic, atraumatic Respiratory/Chest: chest wall non-tender, lungs clear Cardiovascular: normal peripheral pulses, normal rate Abdomen: normal bowel sounds, no organomegaly, massive fat on abdomen Extremities: no cyanosis Skin: no lesions Laboratory Tests 01/06/19 06:00: White Blood Count 6.5, Red Blood Count 3.75L, Hemoglobin 11.3L, Hematocrit 34.1L , Mean Corpuscular Volume 91, Mean Corpuscular Hemoglobin 30.1, Mean Corpuscular Hemoglobin Concent 33.1, Red Cell Distribution Width 13.2, Platelet Count 251, Mean Platelet Volume 5.0L, Neutrophils (%) (Auto) 55.5, Lymphocytes ( %) (Auto) 31.0, Monocytes (%) (Auto) 9.8, Eosinophils (%) (Auto) 2.9, Basophils (%) (Auto) 0.8, Sodium Level 139, Potassium Level 3.8, Chloride Level 101, Carbon Dioxide Level 36H, Anion Gap 2L, Blood Urea Nitrogen 17, Creatinine 1.0, Estimat Glomerular Filtration Rate > 60, Glucose Level 93, Calcium Level 8.7 Current Medications Medications (Trade) Dose Ordered Sig/Luis Route PRN Reason Start Time Stop Time Status Last Admin Dose Admin Acetaminophen (Tylenol) 650 mg Q4H PRN ORAL fever 12/15/18 14:54 01/14/19 14:53 Albuterol/ Ipratropium (Albuterol/ Ipratropium) 3 ml Q4H PRN HHN Shortness of Breath 01/04/19 20:30 01/09/19 20:29 01/06/19 00:15 Atorvastatin Calcium (Lipitor) 80 mg BEDTIME ORAL 12/15/18 21:00 01/14/19 20:59 01/05/19 21:02 Chlorhexidine Gluconate (Ruby-Hex 2%) 1 applic DAILY@2000 TOPIC 12/22/18 20:00 01/21/19 19:59 01/05/19 19:40 Clonidine HCl (Catapres Tab) 0.1 mg Q4H PRN ORAL For High Blood Pressure 12/15/18 14:56 01/14/19 14:55 Clopidogrel Bisulfate (Plavix) 75 mg DAILY ORAL 12/16/18 09:00 01/14/19 08:59 01/06/19 08:25 Daptomycin 900 mg/ Sodium Chloride 55 ml @ 110 mls/hr Q24H IV 12/25/18 14:00 01/07/19 13:59 01/05/19 14:00 Dextrose (Dextrose 50%) 25 ml Q30M PRN IV Hypoglycemia 12/15/18 15:15 01/13/19 23:44 Dextrose (Dextrose 50%) 50 ml Q30M PRN IV Hypoglycemia 12/15/18 15:15 01/13/19 23:44 Duloxetine HCl (Cymbalta) 30 mg DAILY ORAL 12/16/18 09:00 01/14/19 08:59 01/06/19 08:26 Furosemide (Lasix) 20 mg Q6HR IV 12/22/18 00:00 01/21/19 00:00 01/06/19 05:35 Gabapentin (Neurontin) 600 mg THREE TIMES A DAY ORAL 12/15/18 18:00 01/14/19 08:59 01/06/19 08:27 Heparin Sodium (Porcine) (Heparin 5000 units/ml) 5,000 units EVERY 12 HOURS SUBQ 12/15/18 21:00 01/14/19 08:59 01/06/19 08:38 Hydromorphone HCl (Dilaudid) 4 mg Q4H PRN IVP Breakthrough Pain 01/01/19 10:29 01/08/19 10:28 01/06/19 08:28 Levetiracetam (Keppra) 2,000 mg Q12HR ORAL 01/01/19 21:00 01/18/19 08:59 01/06/19 08:27 Levofloxacin (Levaquin) 500 mg Q24H ORAL 12/30/18 13:00 01/06/19 12:59 01/05/19 13:14 Losartan Potassium (Cozaar) 25 mg DAILY ORAL 12/29/18 13:45 01/28/19 13:44 01/06/19 08:27 Magnesium Oxide (Mag-Ox 400mg) 800 mg THREE TIMES A DAY ORAL 01/02/19 18:00 02/01/19 17:59 01/06/19 08:26 Nitroglycerin (Ntg) 0.4 mg Q5M X 3 DOSES PRN SL Prn Chest Pain 12/15/18 14:45 01/13/19 23:44 01/02/19 11:59 Ondansetron HCl (Zofran) 4 mg Q6H PRN IVP Nausea & Vomiting 12/15/18 14:55 01/14/19 14:54 12/17/18 10:19 Polyethylene Glycol (Miralax) 17 gm HSPRN PRN ORAL Constipation 12/15/18 14:55 01/14/19 14:54 Pregabalin (Lyrica) 100 mg THREE TIMES A DAY ORAL 12/26/18 09:00 01/19/19 22:59 01/06/19 08:26 Promethazine HCl/ Codeine (Phenergan with Codeine) 5 ml Q4H PRN ORAL For Cough 12/28/18 12:00 01/27/19 11:59 01/01/19 01:34 Trazodone HCl (Desyrel) 100 mg BEDTIME ORAL 12/15/18 21:00 01/14/19 20:59 01/05/19 21:02 Bill Dixon MD Jan 06, 2019 11:32
--- NOTE | 2019-01-06 11:44 | NUR ---
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 RIGHT SIDED HEART FAILURE VS: BP 124/50, P 101, T 97.7, RR 20, SpO2 91 RBC 3.75, H&H 11.3/34.1 IS:LASIX 20mg IV HEPARIN SUBQ DILAUDID 4mG GABAPENTIN 600mg COZAAR 25mg KEPPRA 2,000mg CYMBALTA 30mg LYRICA 100mg MAGNESIUM OXIDE 800mg ALBUTEROL 3ml HHN MED/SURG STATUS
--- NOTE | 2019-01-06 11:56 | NUR ---
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
[2019-01-06 12:00] VITALS: BP 132/60
--- NOTE | 2019-01-06 12:22 | Infectious Diseases Prog Note ---
Assessment/Plan Assessment/Plan B/l Leg cellulitis and panniculitis - in the setting of chronic venous stasis Active infectious cellulitis essentially resolved. Now he has chronic venous stasis and neuropathic pain with poorly healing wounds. Alot off this is due to the severe swelling in his feet but also he is poorly compliant with wound care instructions. L side weakness/spasticity- thought be 2ry to seizures- r/O CVA- no active infectious process at present (pt afebrile- doubt meningitis at this moment) Afebrile No leukocytosis -CXR: No acute findings CVA HTN bipolar disorder w/ psychotic features tobacco abuse anxiety disorder chronic pain CHF seizure disorder COPD morbid obesity Dm2 HTN SNF resident Plan: IV Dapto d# 12 ( pt Cr increased 30% will avoid Vanco) Would treat for 14 day ( End date 01/07/19) 01/06/19 S/P Levofloxacin #7 12/25 sp Bactrim #4/14 and add IV Ancef #3/14 for cellulitis - Patient pooly compliant with leg elevation and wound dressing instruction -Monitor CBC/CMP, temperatures -neuro f/u- plan for CT head, include neck as lump in back of neck; however pt did not fit on CT scan machine due to weight -aspiration precautions -wound care per hospital protocol Subjective Allergies: Coded Allergies: ASPIRIN (Verified Allergy, Unknown, 07/14/18) KETOROLAC (Verified Allergy, Unknown, 07/14/18) PENICILLINS (Verified Allergy, Unknown, 12/23/18) tolerated Ancef on 08/2018 Subjective Afebrile No leukocytosis Objective Vital Signs Last 24 Hour Vital Signs Date Time Temp Pulse Resp B/P (MAP) Pulse Ox O2 Delivery O2 Flow Rate FiO2 01/06/19 09:00 Room Air 01/06/19 08:27 124/50 01/06/19 08:05 100 18 94 Room Air 21 01/06/19 08:00 97.7 101 20 124/50 (74) 93 01/06/19 04:00 98.1 91 20 100/66 (77) 91 01/06/19 00:27 89 18 95 Nasal Cannula 2.0 28 01/06/19 00:15 89 20 90 Room Air 21 01/06/19 00:00 97.3 81 20 105/64 (78) 98 6/11/19 21:18 92 18 95 Room Air 21 01/05/19 21:00 Room Air 01/05/19 20:00 98.6 86 18 99/59 (72) 93 01/05/19 16:00 98.1 94 20 112/62 (79) 94 Height (Feet): 5 Height (Inches): 10.00 Weight (Pounds): 495 Objective GEN: NAD, Satting well on RA HEENT: NCAT, MMM Respiratory/Chest: CTAB, No W Cardiovascular: RRR, S1, S2 Abdomen: Soft, ND Ext. LE with severe edema and healing skin tears. Serous weepage. Infectious cellulitis essentially resolved Laboratory Tests Test 01/06/19 06:00 White Blood Count 6.5 K/UL (4.8-10.8) Red Blood Count 3.75 M/UL (4.70-6.10) L Hemoglobin 11.3 G/DL (14.2-18.0) L Hematocrit 34.1 % (42.0-52.0) L Mean Corpuscular Volume 91 FL (80-99) Mean Corpuscular Hemoglobin 30.1 PG (27.0-31.0) Mean Corpuscular Hemoglobin Concent 33.1 G/DL (32.0-36.0) Red Cell Distribution Width 13.2 % (11.6-14.8) Platelet Count 251 K/UL (150-450) Mean Platelet Volume 5.0 FL (6.5-10.1) L Neutrophils (%) (Auto) 55.5 % (45.0-75.0) Lymphocytes (%) (Auto) 31.0 % (20.0-45.0) Monocytes (%) (Auto) 9.8 % (1.0-10.0) Eosinophils (%) (Auto) 2.9 % (0.0-3.0) Basophils (%) (Auto) 0.8 % (0.0-2.0) Sodium Level 139 MMOL/L (136-145) Potassium Level 3.8 MMOL/L (3.5-5.1) Chloride Level 101 MMOL/L (98-107) Carbon Dioxide Level 36 MMOL/L (21-32) H Anion Gap 2 mmol/L (5-15) L Blood Urea Nitrogen 17 mg/dL (7-18) Creatinine 1.0 MG/DL (0.55-1.30) Estimat Glomerular Filtration Rate > 60 mL/min (>60) Glucose Level 93 MG/DL (74-106) Calcium Level 8.7 MG/DL (8.5-10.1) Current Medications Medications (Trade) Dose Ordered Sig/Luis Route PRN Reason Start Time Stop Time Status Last Admin Dose Admin Acetaminophen (Tylenol) 650 mg Q4H PRN ORAL fever 12/15/18 14:54 01/14/19 14:53 Albuterol/ Ipratropium (Albuterol/ Ipratropium) 3 ml Q4H PRN HHN Shortness of Breath 01/04/19 20:30 01/09/19 20:29 01/06/19 00:15 Atorvastatin Calcium (Lipitor) 80 mg BEDTIME ORAL 12/15/18 21:00 01/14/19 20:59 01/05/19 21:02 Chlorhexidine Gluconate (Ruby-Hex 2%) 1 applic DAILY@2000 TOPIC 12/22/18 20:00 01/21/19 19:59 01/05/19 19:40 Clonidine HCl (Catapres Tab) 0.1 mg Q4H PRN ORAL For High Blood Pressure 12/15/18 14:56 01/14/19 14:55 Clopidogrel Bisulfate (Plavix) 75 mg DAILY ORAL 12/16/18 09:00 01/14/19 08:59 01/06/19 08:25 Daptomycin 900 mg/ Sodium Chloride 55 ml @ 110 mls/hr Q24H IV 12/25/18 14:00 01/07/19 13:59 01/05/19 14:00 Dextrose (Dextrose 50%) 25 ml Q30M PRN IV Hypoglycemia 12/15/18 15:15 01/13/19 23:44 Dextrose (Dextrose 50%) 50 ml Q30M PRN IV Hypoglycemia 12/15/18 15:15 01/13/19 23:44 Duloxetine HCl (Cymbalta) 30 mg DAILY ORAL 12/16/18 09:00 01/14/19 08:59 01/06/19 08:26 Furosemide (Lasix) 20 mg Q6HR IV 12/22/18 00:00 01/21/19 00:00 01/06/19 11:41 Gabapentin (Neurontin) 600 mg THREE TIMES A DAY ORAL 12/15/18 18:00 01/14/19 08:59 01/06/19 08:27 Heparin Sodium (Porcine) (Heparin 5000 units/ml) 5,000 units EVERY 12 HOURS SUBQ 12/15/18 21:00 01/14/19 08:59 01/06/19 08:38 Hydromorphone HCl (Dilaudid) 4 mg Q4H PRN IVP Breakthrough Pain 01/01/19 10:29 01/08/19 10:28 01/06/19 08:28 Levetiracetam (Keppra) 2,000 mg Q12HR ORAL 01/01/19 21:00 01/18/19 08:59 01/06/19 08:27 Levofloxacin (Levaquin) 500 mg Q24H ORAL 12/30/18 13:00 01/06/19 12:59 01/05/19 13:14 Losartan Potassium (Cozaar) 25 mg DAILY ORAL 12/29/18 13:45 01/28/19 13:44 01/06/19 08:27 Magnesium Oxide (Mag-Ox 400mg) 800 mg THREE TIMES A DAY ORAL 01/02/19 18:00 02/01/19 17:59 01/06/19 08:26 Nitroglycerin (Ntg) 0.4 mg Q5M X 3 DOSES PRN SL Prn Chest Pain 12/15/18 14:45 01/13/19 23:44 01/02/19 11:59 Ondansetron HCl (Zofran) 4 mg Q6H PRN IVP Nausea & Vomiting 12/15/18 14:55 01/14/19 14:54 12/17/18 10:19 Polyethylene Glycol (Miralax) 17 gm HSPRN PRN ORAL Constipation 12/15/18 14:55 01/14/19 14:54 Pregabalin (Lyrica) 100 mg THREE TIMES A DAY ORAL 12/26/18 09:00 01/19/19 22:59 01/06/19 08:26 Promethazine HCl/ Codeine (Phenergan with Codeine) 5 ml Q4H PRN ORAL For Cough 12/28/18 12:00 01/27/19 11:59 01/01/19 01:34 Trazodone HCl (Desyrel) 100 mg BEDTIME ORAL 12/15/18 21:00 01/14/19 20:59 01/05/19 21:02 Elliot Chauhan MD Jan 06, 2019 12:22
--- NOTE | 2019-01-06 13:10 | Nephrology Progress Note ---
Assessment/Plan Problem List: (1) Hyponatremia (2) Morbid obesity (3) COPD (chronic obstructive pulmonary disease) Plan Mag IV as needed Mag PO TID Low Na resolved cont per consultants Subjective ROS Limited/Unobtainable: No Objective Objective Last 24 Hour Vital Signs Date Time Temp Pulse Resp B/P (MAP) Pulse Ox O2 Delivery O2 Flow Rate FiO2 01/06/19 12:00 98.0 89 20 132/60 (84) 95 01/06/19 09:00 Room Air 01/06/19 08:27 124/50 01/06/19 08:05 100 18 94 Room Air 21 01/06/19 08:00 97.7 101 20 124/50 (74) 93 01/06/19 04:00 98.1 91 20 100/66 (77) 91 01/06/19 00:27 89 18 95 Nasal Cannula 2.0 28 01/06/19 00:15 89 20 90 Room Air 21 01/06/19 00:00 97.3 81 20 105/64 (78) 98 01/05/19 21:18 92 18 95 Room Air 21 01/05/19 21:00 Room Air 01/05/19 20:00 98.6 86 18 99/59 (72) 93 01/05/19 16:00 98.1 94 20 112/62 (79) 94 Intake and Output 01/05/19 01/06/19 18:59 06:59 Intake Total 4000 ml Balance 4000 ml Intake Oral 4000 ml # Voids 8 3 # Bowel Movements 1 Laboratory Tests 01/06/19 06:00: White Blood Count 6.5, Red Blood Count 3.75L, Hemoglobin 11.3L, Hematocrit 34.1L , Mean Corpuscular Volume 91, Mean Corpuscular Hemoglobin 30.1, Mean Corpuscular Hemoglobin Concent 33.1, Red Cell Distribution Width 13.2, Platelet Count 251, Mean Platelet Volume 5.0L, Neutrophils (%) (Auto) 55.5, Lymphocytes ( %) (Auto) 31.0, Monocytes (%) (Auto) 9.8, Eosinophils (%) (Auto) 2.9, Basophils (%) (Auto) 0.8, Sodium Level 139, Potassium Level 3.8, Chloride Level 101, Carbon Dioxide Level 36H, Anion Gap 2L, Blood Urea Nitrogen 17, Creatinine 1.0, Estimat Glomerular Filtration Rate > 60, Glucose Level 93, Calcium Level 8.7 Height (Feet): 5 Height (Inches): 10.00 Weight (Pounds): 495 General Appearance: no apparent distress Objective no change Devante Taylor MD Jan 06, 2019 13:10
[2019-01-06] MEDS: DAPTOMYCIN IV SCH (14:37)
[2019-01-06] MEDS: NS IV SCH (14:37)
[2019-01-06 16:00] VITALS: BP 100/66
--- NOTE | 2019-01-06 19:30 | NUR ---
NURSE NOTES: Received patient around 1900. Patient was awake, alert x 4 and sitting up in bed. Patient's bed was on the lowest position with 2 side rails up. Call light is within reach.
--- NOTE | 2019-01-06 19:30 | NUR ---
HAND-OFF: Report given to Nael HINOJOSA and Edita HINOJOSA. Patient in stable condition.
--- NOTE | 2019-01-06 19:53 | Cardiology Progress Note ---
Assessment/Plan Assessment/Plan 1. Possibly non-cardiac chest pain, 12 lead ECG shows no evidence of ischemia, trop I level is normal. 2. Morbid obesity with panniculitis, normal LV systolic and diastolic function per recent echo, clear for "removal of pannus". 3. Chronic venous insufficiency, off amlodipine. 4. HTN, well controlled, continue losartan. 5. COPD 6. Seizure D/O 7. Hypomagnesemia, Mg level in am. Subjective Subjective No cardiac events noted. Objective Last 24 Hour Vital Signs Date Time Temp Pulse Resp B/P (MAP) Pulse Ox O2 Delivery O2 Flow Rate FiO2 01/06/19 16:00 98.1 91 20 100/66 (77) 93 01/06/19 12:00 98.0 89 20 132/60 (84) 95 01/06/19 09:00 Room Air 01/06/19 08:27 124/50 01/06/19 08:05 100 18 94 Room Air 21 01/06/19 08:00 97.7 101 20 124/50 (74) 93 01/06/19 04:00 98.1 91 20 100/66 (77) 91 01/06/19 00:27 89 18 95 Nasal Cannula 2.0 28 01/06/19 00:15 89 20 90 Room Air 21 01/06/19 00:00 97.3 81 20 105/64 (78) 98 01/05/19 21:18 92 18 95 Room Air 21 01/05/19 21:00 Room Air 01/05/19 20:00 98.6 86 18 99/59 (72) 93 EENT: TM abnormal (R) Intake and Output 01/05/19 01/06/19 19:00 07:00 Intake Total 4000 ml Balance 4000 ml Intake Oral 4000 ml # Voids 8 3 # Bowel Movements 1 2D Echo: Normal LV systolic function, RVSP 34 mmHg, RAP elevated at 15 mmHg Laboratory Tests Test 01/06/19 06:00 White Blood Count 6.5 K/UL (4.8-10.8) Red Blood Count 3.75 M/UL (4.70-6.10) L Hemoglobin 11.3 G/DL (14.2-18.0) L Hematocrit 34.1 % (42.0-52.0) L Mean Corpuscular Volume 91 FL (80-99) Mean Corpuscular Hemoglobin 30.1 PG (27.0-31.0) Mean Corpuscular Hemoglobin Concent 33.1 G/DL (32.0-36.0) Red Cell Distribution Width 13.2 % (11.6-14.8) Platelet Count 251 K/UL (150-450) Mean Platelet Volume 5.0 FL (6.5-10.1) L Neutrophils (%) (Auto) 55.5 % (45.0-75.0) Lymphocytes (%) (Auto) 31.0 % (20.0-45.0) Monocytes (%) (Auto) 9.8 % (1.0-10.0) Eosinophils (%) (Auto) 2.9 % (0.0-3.0) Basophils (%) (Auto) 0.8 % (0.0-2.0) Sodium Level 139 MMOL/L (136-145) Potassium Level 3.8 MMOL/L (3.5-5.1) Chloride Level 101 MMOL/L (98-107) Carbon Dioxide Level 36 MMOL/L (21-32) H Anion Gap 2 mmol/L (5-15) L Blood Urea Nitrogen 17 mg/dL (7-18) Creatinine 1.0 MG/DL (0.55-1.30) Estimat Glomerular Filtration Rate > 60 mL/min (>60) Glucose Level 93 MG/DL (74-106) Calcium Level 8.7 MG/DL (8.5-10.1) Objective HEENT: Atraumatic and normocephalic. Anicteric. Pupils are equal, round, and reactive to light and accommodation. NECK: JVP cannot be assessed due to obesity. No carotid bruit. CARDIOVASCULAR: Normal S1, S2. Regular rate and rhythm. No murmurs, gallops, or rubs. PMI is at fourth intercostal space at the midclavicular line. LUNGS: Clear to auscultation bilaterally. ABDOMEN: Distended due to pannus formation, cannot palpate hepatosplenomegaly. Positive bowel sounds. EXTREMITIES: No lower extremity edema, clubbing or cyanosis. Carlos Martins MD Jan 06, 2019 19:53
--- NOTE | 2019-01-06 19:57 | Neurology Progress Note ---
Interim History Interim History ROS Limited/Unobtainable: No Complaints: Seizures/ Weakness Events: This visit was performed on January 06, [address] Amador Brewster Interim History No new events, D/C planning occurring. Objective Physical Exam Last Vital Signs Date Time Temp Pulse Resp B/P (MAP) Pulse Ox O2 Delivery O2 Flow Rate FiO2 01/06/19 16:00 98.1 91 20 100/66 (77) 93 01/06/19 09:00 Room Air 01/06/19 08:05 21 01/06/19 00:27 2.0 Laboratory Tests Test 01/06/19 06:00 White Blood Count 6.5 K/UL (4.8-10.8) Red Blood Count 3.75 M/UL (4.70-6.10) L Hemoglobin 11.3 G/DL (14.2-18.0) L Hematocrit 34.1 % (42.0-52.0) L Mean Corpuscular Volume 91 FL (80-99) Mean Corpuscular Hemoglobin 30.1 PG (27.0-31.0) Mean Corpuscular Hemoglobin Concent 33.1 G/DL (32.0-36.0) Red Cell Distribution Width 13.2 % (11.6-14.8) Platelet Count 251 K/UL (150-450) Mean Platelet Volume 5.0 FL (6.5-10.1) L Neutrophils (%) (Auto) 55.5 % (45.0-75.0) Lymphocytes (%) (Auto) 31.0 % (20.0-45.0) Monocytes (%) (Auto) 9.8 % (1.0-10.0) Eosinophils (%) (Auto) 2.9 % (0.0-3.0) Basophils (%) (Auto) 0.8 % (0.0-2.0) Sodium Level 139 MMOL/L (136-145) Potassium Level 3.8 MMOL/L (3.5-5.1) Chloride Level 101 MMOL/L (98-107) Carbon Dioxide Level 36 MMOL/L (21-32) H Anion Gap 2 mmol/L (5-15) L Blood Urea Nitrogen 17 mg/dL (7-18) Creatinine 1.0 MG/DL (0.55-1.30) Estimat Glomerular Filtration Rate > 60 mL/min (>60) Glucose Level 93 MG/DL (74-106) Calcium Level 8.7 MG/DL (8.5-10.1) General: well developed, other - Morbidly obese Head: normocophalic Neck: no rigidity EENT: benign Neurologic Exam Mental Status: awake, alert, oriented x4, normal cognition, good mathematical skills, normal recent memory, normal remote memory, preserved visuospatial function Speech: normal speech, no dysarthia Language: normal language, no aphasia Cranial Nerve II: fundus normal, visual bonilla, no papilledema Cranial Nerves III, IV, : PERRLA, EOMI, pupils Cranial Nerve V: normal facial sensations, temporales function normal, masseters function normal, pterygoids function normal Cranial Nerve VII: normal facial expressions, other Cranial Nerve VIII: normal hearing, no nystagmus Cranial Nerve IX: normal palate elevation, gag response Cranial Nerve X: no voice hoarseness Cranial Nerve XI: SCM symmetric, trapezii function normal Cranial Nerve XII: tongue midline, no tongue atrophy/fasciculations Motor System: normal muscle tone, no involuntary movement, no muscle wasting Sensory: normal pinprick, normal light touch, normal position sense, normal graphesthesia Coordination: normal heel to villarreal bilaterally, negative Romberg test Deep Tendon Reflexes: 1+ bicep (L), 1+ bicep (R), 1+ tricep (L), 1+ tricep (R) , 1+ brachioradialis (L), 1+ brachioradialis (R), 1+ knee (L), 1+ knee (R), 1+ ankle (L), 1+ ankle (R) Reflexes: flexor plantar (L), flexor plantar (R); extensor plantar (L), extensor plantar (R) Stance: other - Broad based Gait: stable Objective Left arm, predominantly hand weakness at this time. Alert and oriented Ambulatory with cellulitis persisting on BLE He does not have proximal left arm weakness at this time, mild facial weakness, tongue deviated on exam Impression/Recommendations Problems: (1) Seizures Assessment & Plan: Keppra 2000mg BID PO Maintain SBP<140 Q4 Hour Neuro Checks Ativan 2mg PRN for seizure activity CT Head w/o contrast when able to rule out CVA - also for consideration of MRI if CT negative. - low suspicion of CVA due to normotensive status without risk factors of elevated BP/ HgBA1c or thyroid dysfunction. Na 135-145 Continue pain management - Lyrica 100mg TID - Continue Gabapentin 600mg TID Intense PT recommended EEG negative for seizures, but consistent with mild encephalopathy. Same on Repeat Correct hypocalcemia (2) Morbid obesity (3) COPD (chronic obstructive pulmonary disease) (4) Uncontrolled seizures (5) Left-sided weakness Assessment & Plan: No seizure activity captured on EEG but mild to moderate degree of encephalopathy seen. Repeat EEG same as previous (6) Knee osteomyelits, right Status: stable, progressing Recommendations Q4 hour Neuro Obs - NO NIGHTTIME OBS if stable Prevent delirium Maintain regular sleep schedule and reduce nighttime activities such as observations (if unnecessary) Maintain Keppra dose at 2g BID, no additional meds at this time. Patient neurologically stable at this time for discharge Vicky Tayolr N.P. Jan 06, 2019 19:57
[2019-01-06 20:00] VITALS: BP 115/60
[2019-01-06] MEDS: Atorvastatin 80mg tab ORAL SCH (20:42)
[2019-01-06] MEDS: TraZODone 100mg tab ORAL SCH (20:43)
[2019-01-06] MEDS: Dyna-Hex 2% Top Sol 2oz TOPIC SCH (21:01)
[2019-01-07] VITALS: BP 120/58
[2019-01-07 04:00] VITALS: BP 142/62
[2019-01-07 06:18] LABS: BASOPHILS % (AUTO) 0.8 % (0.0-2.0); EOSINOPHILS % (AUTO) 2.9 % (0.0-3.0); HEMATOCRIT 35.9 % (42.0-52.0); HEMOGLOBIN 11.8 G/DL (14.2-18.0); LYMPHOCYTES % (AUTO) 31.1 % (20.0-45.0); MEAN CORPUSCULAR VOLUME 92 FL (80-99); MONOCYTES % (AUTO) 10.1 % (1.0-10.0); PLATELET COUNT 285 K/UL (150-450); RED BLOOD COUNT 3.91 M/UL (4.70-6.10); RED CELL DISTRIBUTION WIDTH 13.2 % (11.6-14.8); WHITE BLOOD COUNT 6.5 K/UL (4.8-10.8)
[2019-01-07 06:26] LABS: ANION GAP 2 mmol/L (5-15); BLOOD UREA NITROGEN 18 mg/dL (7-18); CALCIUM 8.7 MG/DL (8.5-10.1); CARBON DIOXIDE 38 MMOL/L (21-32); CHLORIDE 99 MMOL/L (98-107); POTASSIUM 3.6 MMOL/L (3.5-5.1); SODIUM 139 MMOL/L (136-145)
--- NOTE | 2019-01-07 07:18 | NUR ---
HAND-OFF: Report given to MICAELA Hong.
--- NOTE | 2019-01-07 07:56 | NUR ---
NURSE NOTES: received report from MICAELA Cervantes. patient in bed. alert. orientedx4. verbally responsive. no respiratory distress noted. no pain at this time. PICC line on jonh intact. dressing clean and dry. Cellulitis both legs. refused padded siderail for seizure precaution. bed in the lowest position. call light within reach. alarm on. will continue to monitor and provide plan of care.
[2019-01-07 08:00] VITALS: BP 121/74
[2019-01-07] MEDS: DULoxetine 30mg cap ORAL SCH (08:54)
[2019-01-07] MEDS: Losartan 25mg tab ORAL SCH (08:54)
[2019-01-07] MEDS: Lyrica 50mg cap ORAL SCH ×3 (08:55→17:19)
[2019-01-07] MEDS: Magnesium Oxide 400mg tab ORAL SCH ×3 (08:55→17:18)
[2019-01-07] MEDS: Heparin 5000 units/ml inj SUBQ SCH ×2 (08:58→21:25)
--- NOTE | 2019-01-07 10:15 | NUR ---
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 RIGHT SIDED HEART FAILURE VS: BP 120/50, P 90, T 98.2, RR 20, SpO2 92 on 2.0L O2 NC RBC 3.91, H&H 11.8/35.9, CO2 38, Anion Gap 2, Glucose 71 IS: LASIX 20mg IV HEPARIN SUBQ DILAUDID 4mG PLAVIX 75mg GABAPENTIN 600mg COZAAR 25mg KEPPRA 2,000mg CYMBALTA 30mg LYRICA 100mg MAGNESIUM OXIDE 800mg METHADONE 15mg MED/SURG STATUS
--- NOTE | 2019-01-07 11:19 | Pulmonology Progress Note ---
Assessment/Plan Problems: (1) Morbid obesity (2) Peripheral edema (3) Cellulitis (4) Seizures (5) Cerebrovascular accident (6) Left-sided weakness (7) COPD (chronic obstructive pulmonary disease) (8) Right heart failure (9) Lumbar spondylosis (10) ADALBERTO (obstructive sleep apnea) Assessment/Plan no new complains, concerned about social security and being homeless coughing up dark/ brown phlegm. add levofloxacin all meds /notes reviewed pt/ot increase dialudid to 4 mg and add Methadone 10Q8 respiratory treatment titrate fio2 to sat of 92% dvt prophylaxis Subjective ROS Limited/Unobtainable: No Constitutional: Reports: no symptoms HEENT: Repors: no symptoms Allergies: Coded Allergies: ASPIRIN (Verified Allergy, Unknown, 07/14/18) KETOROLAC (Verified Allergy, Unknown, 07/14/18) PENICILLINS (Verified Allergy, Unknown, 12/23/18) tolerated Ancef on 08/2018 Objective Last 24 Hour Vital Signs Date Time Temp Pulse Resp B/P (MAP) Pulse Ox O2 Delivery O2 Flow Rate FiO2 01/07/19 08:54 121/74 01/07/19 04:00 98.1 90 20 142/62 (88) 95 01/07/19 00:00 98.2 88 20 120/58 (78) 94 01/06/19 21:48 82 20 92 Nasal Cannula 2.0 28 01/06/19 21:32 85 20 92 Room Air 21 01/06/19 21:32 88 20 91 Room Air 21 01/06/19 21:00 Room Air 01/06/19 20:00 97.0 90 22 115/60 (78) 93 01/06/19 16:00 98.1 91 20 100/66 (77) 93 01/06/19 12:00 98.0 89 20 132/60 (84) 95 Intake and Output 01/06/19 01/07/19 19:00 07:00 Intake Total 1730 ml 960 ml Balance 1730 ml 960 ml Intake Oral 1730 ml 960 ml # Voids 3 5 # Bowel Movements 1 1 Objective HEENT: normocephalic, atraumatic Respiratory/Chest: chest wall non-tender, lungs clear Cardiovascular: normal peripheral pulses, normal rate Abdomen: normal bowel sounds, no organomegaly, massive fat on abdomen Extremities: no cyanosis Skin: no lesions Laboratory Tests 01/07/19 05:13: White Blood Count 6.5, Red Blood Count 3.91L, Hemoglobin 11.8L, Hematocrit 35.9L , Mean Corpuscular Volume 92, Mean Corpuscular Hemoglobin 30.1, Mean Corpuscular Hemoglobin Concent 32.7, Red Cell Distribution Width 13.2, Platelet Count 285, Mean Platelet Volume 5.2L, Neutrophils (%) (Auto) 55.0, Lymphocytes ( %) (Auto) 31.1, Monocytes (%) (Auto) 10.1H, Eosinophils (%) (Auto) 2.9, Basophils (%) (Auto) 0.8, Sodium Level 139, Potassium Level 3.6, Chloride Level 99, Carbon Dioxide Level 38H, Anion Gap 2L, Blood Urea Nitrogen 18, Creatinine 1.0, Estimat Glomerular Filtration Rate > 60, Glucose Level 71L, Calcium Level 8.7 Current Medications Medications (Trade) Dose Ordered Sig/Luis Route PRN Reason Start Time Stop Time Status Last Admin Dose Admin Acetaminophen (Tylenol) 650 mg Q4H PRN ORAL fever 12/15/18 14:54 01/14/19 14:53 Albuterol/ Ipratropium (Albuterol/ Ipratropium) 3 ml Q4H PRN HHN Shortness of Breath 01/04/19 20:30 01/09/19 20:29 01/06/19 21:35 Atorvastatin Calcium (Lipitor) 80 mg BEDTIME ORAL 12/15/18 21:00 01/14/19 20:59 01/06/19 20:42 Chlorhexidine Gluconate (Ruby-Hex 2%) 1 applic DAILY@2000 TOPIC 12/22/18 20:00 01/21/19 19:59 01/06/19 21:01 Clonidine HCl (Catapres Tab) 0.1 mg Q4H PRN ORAL For High Blood Pressure 12/15/18 14:56 01/14/19 14:55 Clopidogrel Bisulfate (Plavix) 75 mg DAILY ORAL 12/16/18 09:00 01/14/19 08:59 01/07/19 08:55 Daptomycin 900 mg/ Sodium Chloride 55 ml @ 110 mls/hr Q24H IV 12/25/18 14:00 01/07/19 13:59 01/06/19 14:37 Dextrose (Dextrose 50%) 25 ml Q30M PRN IV Hypoglycemia 12/15/18 15:15 01/13/19 23:44 Dextrose (Dextrose 50%) 50 ml Q30M PRN IV Hypoglycemia 12/15/18 15:15 01/13/19 23:44 Duloxetine HCl (Cymbalta) 30 mg DAILY ORAL 12/16/18 09:00 01/14/19 08:59 01/07/19 08:54 Furosemide (Lasix) 20 mg Q6HR IV 12/22/18 00:00 01/21/19 00:00 01/07/19 05:56 Gabapentin (Neurontin) 600 mg THREE TIMES A DAY ORAL 12/15/18 18:00 01/14/19 08:59 01/07/19 08:55 Heparin Sodium (Porcine) (Heparin 5000 units/ml) 5,000 units EVERY 12 HOURS SUBQ 12/15/18 21:00 01/14/19 08:59 01/07/19 08:58 Hydromorphone HCl (Dilaudid) 4 mg Q4H PRN IVP Breakthrough Pain 01/01/19 10:29 01/08/19 10:28 01/07/19 08:56 Levetiracetam (Keppra) 2,000 mg Q12HR ORAL 01/01/19 21:00 01/18/19 08:59 01/07/19 08:54 Losartan Potassium (Cozaar) 25 mg DAILY ORAL 12/29/18 13:45 01/28/19 13:44 01/07/19 08:54 Magnesium Oxide (Mag-Ox 400mg) 800 mg THREE TIMES A DAY ORAL 01/02/19 18:00 02/01/19 17:59 01/07/19 08:55 Methadone HCl (Methadone HCl) 15 mg Q8HR ORAL 01/06/19 14:00 01/13/19 13:59 01/07/19 05:57 Nitroglycerin (Ntg) 0.4 mg Q5M X 3 DOSES PRN SL Prn Chest Pain 12/15/18 14:45 01/13/19 23:44 01/02/19 11:59 Ondansetron HCl (Zofran) 4 mg Q6H PRN IVP Nausea & Vomiting 12/15/18 14:55 01/14/19 14:54 12/17/18 10:19 Polyethylene Glycol (Miralax) 17 gm HSPRN PRN ORAL Constipation 12/15/18 14:55 01/14/19 14:54 Pregabalin (Lyrica) 100 mg THREE TIMES A DAY ORAL 12/26/18 09:00 01/19/19 22:59 01/07/19 08:55 Promethazine HCl/ Codeine (Phenergan with Codeine) 5 ml Q4H PRN ORAL For Cough 12/28/18 12:00 01/27/19 11:59 01/01/19 01:34 Trazodone HCl (Desyrel) 100 mg BEDTIME ORAL 12/15/18 21:00 01/14/19 20:59 01/06/19 20:43 Bill Dixon MD Jan 07, 2019 11:19
[2019-01-07 12:00] VITALS: BP 156/96
--- NOTE | 2019-01-07 12:06 | Infectious Diseases Prog Note ---
Assessment/Plan Assessment/Plan B/l Leg cellulitis and panniculitis - in the setting of chronic venous stasis Active infectious cellulitis essentially resolved. Now he has chronic venous stasis and neuropathic pain with poorly healing wounds. Alot off this is due to the severe swelling in his feet but also he is poorly compliant with wound care instructions. L side weakness/spasticity- thought be 2ry to seizures- r/O CVA- no active infectious process at present (pt afebrile- doubt meningitis at this moment) Afebrile No leukocytosis -CXR: No acute findings CVA HTN bipolar disorder w/ psychotic features tobacco abuse anxiety disorder chronic pain CHF seizure disorder COPD morbid obesity Dm2 HTN SN[facility] resident Plan: IV Dapto d# 14 ( pt Cr increased 30% will avoid Vanco) Would treat for 14 day ( End date 01/07/19) Will stop abx today 01/06/19 S/P Levofloxacin #7 12/25 sp Bactrim #4/14 and add IV Ancef #3/14 for cellulitis - Patient pooly compliant with leg elevation and wound dressing instruction -Monitor CBC/CMP, temperatures -neuro f/u- plan for CT head, include neck as lump in back of neck; however pt did not fit on CT scan machine due to weight -aspiration precautions -wound care per hospital protocol Subjective Allergies: Coded Allergies: ASPIRIN (Verified Allergy, Unknown, 07/14/18) KETOROLAC (Verified Allergy, Unknown, 07/14/18) PENICILLINS (Verified Allergy, Unknown, 12/23/18) tolerated Ancef on 08/2018 Subjective JANEE Afebrile No leukocytosis Waiting for placement Objective Vital Signs Last 24 Hour Vital Signs Date Time Temp Pulse Resp B/P (MAP) Pulse Ox O2 Delivery O2 Flow Rate FiO2 01/07/19 12:00 97.9 93 20 156/96 (116) 96 01/07/19 09:00 Room Air 01/07/19 08:54 121/74 01/07/19 08:00 98.7 97 20 121/74 (90) 98 01/07/19 04:00 98.1 90 20 142/62 (88) 95 01/07/19 00:00 98.2 88 20 120/58 (78) 94 01/06/19 21:48 82 20 92 Nasal Cannula 2.0 28 01/06/19 21:32 85 20 92 Room Air 21 01/06/19 21:32 88 20 91 Room Air 21 01/06/19 21:00 Room Air 01/06/19 20:00 97.0 90 22 115/60 (78) 93 01/06/19 16:00 98.1 91 20 100/66 (77) 93 Height (Feet): 5 Height (Inches): 10.00 Weight (Pounds): 495 Objective GEN: NAD HEENT: NCAT, MMM Respiratory/Chest: CTAB, No W Cardiovascular: RRR, S1, S2 Abdomen: Soft, ND Ext. LE with severe edema and healing skin tears. Serous weepage. Infectious cellulitis essentially resolved Laboratory Tests Test 01/07/19 05:13 White Blood Count 6.5 K/UL (4.8-10.8) Red Blood Count 3.91 M/UL (4.70-6.10) L Hemoglobin 11.8 G/DL (14.2-18.0) L Hematocrit 35.9 % (42.0-52.0) L Mean Corpuscular Volume 92 FL (80-99) Mean Corpuscular Hemoglobin 30.1 PG (27.0-31.0) Mean Corpuscular Hemoglobin Concent 32.7 G/DL (32.0-36.0) Red Cell Distribution Width 13.2 % (11.6-14.8) Platelet Count 285 K/UL (150-450) Mean Platelet Volume 5.2 FL (6.5-10.1) L Neutrophils (%) (Auto) 55.0 % (45.0-75.0) Lymphocytes (%) (Auto) 31.1 % (20.0-45.0) Monocytes (%) (Auto) 10.1 % (1.0-10.0) H Eosinophils (%) (Auto) 2.9 % (0.0-3.0) Basophils (%) (Auto) 0.8 % (0.0-2.0) Sodium Level 139 MMOL/L (136-145) Potassium Level 3.6 MMOL/L (3.5-5.1) Chloride Level 99 MMOL/L (98-107) Carbon Dioxide Level 38 MMOL/L (21-32) H Anion Gap 2 mmol/L (5-15) L Blood Urea Nitrogen 18 mg/dL (7-18) Creatinine 1.0 MG/DL (0.55-1.30) Estimat Glomerular Filtration Rate > 60 mL/min (>60) Glucose Level 71 MG/DL (74-106) L Calcium Level 8.7 MG/DL (8.5-10.1) Current Medications Medications (Trade) Dose Ordered Sig/Luis Route PRN Reason Start Time Stop Time Status Last Admin Dose Admin Acetaminophen (Tylenol) 650 mg Q4H PRN ORAL fever 12/15/18 14:54 01/14/19 14:53 Albuterol/ Ipratropium (Albuterol/ Ipratropium) 3 ml Q4H PRN HHN Shortness of Breath 01/04/19 20:30 01/09/19 20:29 01/06/19 21:35 Atorvastatin Calcium (Lipitor) 80 mg BEDTIME ORAL 12/15/18 21:00 01/14/19 20:59 01/06/19 20:42 Chlorhexidine Gluconate (Ruby-Hex 2%) 1 applic DAILY@2000 TOPIC 12/22/18 20:00 01/21/19 19:59 01/06/19 21:01 Clonidine HCl (Catapres Tab) 0.1 mg Q4H PRN ORAL For High Blood Pressure 12/15/18 14:56 01/14/19 14:55 Clopidogrel Bisulfate (Plavix) 75 mg DAILY ORAL 12/16/18 09:00 01/14/19 08:59 01/07/19 08:55 Daptomycin 900 mg/ Sodium Chloride 55 ml @ 110 mls/hr Q24H IV 12/25/18 14:00 01/07/19 13:59 01/06/19 14:37 Dextrose (Dextrose 50%) 25 ml Q30M PRN IV Hypoglycemia 12/15/18 15:15 01/13/19 23:44 Dextrose (Dextrose 50%) 50 ml Q30M PRN IV Hypoglycemia 12/15/18 15:15 01/13/19 23:44 Duloxetine HCl (Cymbalta) 30 mg DAILY ORAL 12/16/18 09:00 01/14/19 08:59 01/07/19 08:54 Furosemide (Lasix) 20 mg Q6HR IV 12/22/18 00:00 01/21/19 00:00 01/07/19 05:56 Gabapentin (Neurontin) 600 mg THREE TIMES A DAY ORAL 12/15/18 18:00 01/14/19 08:59 01/07/19 08:55 Heparin Sodium (Porcine) (Heparin 5000 units/ml) 5,000 units EVERY 12 HOURS SUBQ 12/15/18 21:00 01/14/19 08:59 01/07/19 08:58 Hydromorphone HCl (Dilaudid) 4 mg Q4H PRN IVP Breakthrough Pain 01/01/19 10:29 01/08/19 10:28 01/07/19 08:56 Levetiracetam (Keppra) 2,000 mg Q12HR ORAL 01/01/19 21:00 01/18/19 08:59 01/07/19 08:54 Losartan Potassium (Cozaar) 25 mg DAILY ORAL 12/29/18 13:45 01/28/19 13:44 01/07/19 08:54 Magnesium Oxide (Mag-Ox 400mg) 800 mg THREE TIMES A DAY ORAL 01/02/19 18:00 02/01/19 17:59 01/07/19 08:55 Methadone HCl (Methadone HCl) 15 mg Q8HR ORAL 01/06/19 14:00 01/13/19 13:59 01/07/19 05:57 Nitroglycerin (Ntg) 0.4 mg Q5M X 3 DOSES PRN SL Prn Chest Pain 12/15/18 14:45 01/13/19 23:44 01/02/19 11:59 Ondansetron HCl (Zofran) 4 mg Q6H PRN IVP Nausea & Vomiting 12/15/18 14:55 01/14/19 14:54 12/17/18 10:19 Polyethylene Glycol (Miralax) 17 gm HSPRN PRN ORAL Constipation 12/15/18 14:55 01/14/19 14:54 Pregabalin (Lyrica) 100 mg THREE TIMES A DAY ORAL 12/26/18 09:00 01/19/19 22:59 01/07/19 08:55 Promethazine HCl/ Codeine (Phenergan with Codeine) 5 ml Q4H PRN ORAL For Cough 12/28/18 12:00 01/27/19 11:59 01/01/19 01:34 Trazodone HCl (Desyrel) 100 mg BEDTIME ORAL 12/15/18 21:00 01/14/19 20:59 01/06/19 20:43 Elliot Chauhan MD Jan 07, 2019 12:06
--- NOTE | 2019-01-07 12:21 | General Progress Note ---
Assessment/Plan Problem List: (1) Abdominal pannus ICD Codes: E65 - Localized adiposity SNOMED: 4060356239709 (2) Peripheral edema ICD Codes: R60.9 - Edema, unspecified SNOMED: 375935915 (3) Abdominal wall cellulitis ICD Codes: L03.311 - Cellulitis of abdominal wall SNOMED: 91168386 (4) Leg pain ICD Codes: M79.606 - Pain in leg, unspecified SNOMED: 59367740 (5) COPD (chronic obstructive pulmonary disease) ICD Codes: J44.9 - Chronic obstructive pulmonary disease, unspecified SNOMED: 40873663 (6) Seizures ICD Codes: R56.9 - Unspecified convulsions SNOMED: 36373714 (7) Morbid obesity ICD Codes: E66.01 - Morbid (severe) obesity due to excess calories SNOMED: 622193990 (8) Cerebrovascular accident ICD Codes: I63.9 - Cerebral infarction, unspecified SNOMED: 385678332 (9) Left-sided weakness ICD Codes: R53.1 - Weakness SNOMED: 759724353 Status: stable, progressing Assessment/Plan: pt diet neuro f/u wound care abx pain control cbc bmp am dc to snf if clear Subjective Constitutional: Reports: weakness Allergies: Coded Allergies: ASPIRIN (Verified Allergy, Unknown, 07/14/18) KETOROLAC (Verified Allergy, Unknown, 07/14/18) PENICILLINS (Verified Allergy, Unknown, 12/23/18) tolerated Ancef on 08/2018 All Systems: reviewed and negative except above Subjective sleepy calm Objective Last 24 Hour Vital Signs Date Time Temp Pulse Resp B/P (MAP) Pulse Ox O2 Delivery O2 Flow Rate FiO2 01/07/19 12:00 97.9 93 20 156/96 (116) 96 01/07/19 09:00 Room Air 01/07/19 08:54 121/74 01/07/19 08:00 98.7 97 20 121/74 (90) 98 01/07/19 04:00 98.1 90 20 142/62 (88) 95 01/07/19 00:00 98.2 88 20 120/58 (78) 94 01/06/19 21:48 82 20 92 Nasal Cannula 2.0 28 01/06/19 21:32 85 20 92 Room Air 21 01/06/19 21:32 88 20 91 Room Air 21 01/06/19 21:00 Room Air 01/06/19 20:00 97.0 90 22 115/60 (78) 93 01/06/19 16:00 98.1 91 20 100/66 (77) 93 Intake and Output 01/06/19 01/07/19 19:00 07:00 Intake Total 1730 ml 960 ml Balance 1730 ml 960 ml Intake Oral 1730 ml 960 ml # Voids 3 5 # Bowel Movements 1 1 Laboratory Tests 01/07/19 05:13: White Blood Count 6.5, Red Blood Count 3.91L, Hemoglobin 11.8L, Hematocrit 35.9L , Mean Corpuscular Volume 92, Mean Corpuscular Hemoglobin 30.1, Mean Corpuscular Hemoglobin Concent 32.7, Red Cell Distribution Width 13.2, Platelet Count 285, Mean Platelet Volume 5.2L, Neutrophils (%) (Auto) 55.0, Lymphocytes ( %) (Auto) 31.1, Monocytes (%) (Auto) 10.1H, Eosinophils (%) (Auto) 2.9, Basophils (%) (Auto) 0.8, Sodium Level 139, Potassium Level 3.6, Chloride Level 99, Carbon Dioxide Level 38H, Anion Gap 2L, Blood Urea Nitrogen 18, Creatinine 1.0, Estimat Glomerular Filtration Rate > 60, Glucose Level 71L, Calcium Level 8.7 Height (Feet): 5 Height (Inches): 10.00 Weight (Pounds): 495 General Appearance: lethargic EENT: normal ENT inspection Neck: normal alignment Cardiovascular: normal peripheral pulses, normal rate, regular rhythm Respiratory/Chest: chest wall non-tender, lungs clear, normal breath sounds Abdomen: normal bowel sounds, soft, distended Extremities: normal inspection Edema: 1+ Arm (L), 1+ Arm (R), 1+ Leg (L), 1+ Leg (R), 1+ Pedal (L), 1+ Pedal ( R), 1+ Generalized Edema: trace edema Neurologic: responsive, motor weakness Skin: normal pigmentation, warm/dry Objective bl' villarreal dressing c&d Ernesto Nicole DO Jan 07, 2019 12:21
--- NOTE | 2019-01-07 13:37 | Nephrology Progress Note ---
Assessment/Plan Problem List: (1) Hyponatremia (2) Morbid obesity (3) COPD (chronic obstructive pulmonary disease) Plan Mag IV as needed Mag PO TID Low Na resolved cont per consultants Subjective ROS Limited/Unobtainable: No Objective Objective Last 24 Hour Vital Signs Date Time Temp Pulse Resp B/P (MAP) Pulse Ox O2 Delivery O2 Flow Rate FiO2 01/07/19 12:00 97.9 93 20 156/96 (116) 96 01/07/19 09:00 Room Air 01/07/19 08:54 121/74 01/07/19 08:00 98.7 97 20 121/74 (90) 98 01/07/19 04:00 98.1 90 20 142/62 (88) 95 01/07/19 00:00 98.2 88 20 120/58 (78) 94 01/06/19 21:48 82 20 92 Nasal Cannula 2.0 28 01/06/19 21:32 85 20 92 Room Air 21 01/06/19 21:32 88 20 91 Room Air 21 01/06/19 21:00 Room Air 01/06/19 20:00 97.0 90 22 115/60 (78) 93 01/06/19 16:00 98.1 91 20 100/66 (77) 93 Intake and Output 01/06/19 01/07/19 19:00 07:00 Intake Total 1730 ml 960 ml Balance 1730 ml 960 ml Intake Oral 1730 ml 960 ml # Voids 3 5 # Bowel Movements 1 1 Laboratory Tests 01/07/19 05:13: White Blood Count 6.5, Red Blood Count 3.91L, Hemoglobin 11.8L, Hematocrit 35.9L , Mean Corpuscular Volume 92, Mean Corpuscular Hemoglobin 30.1, Mean Corpuscular Hemoglobin Concent 32.7, Red Cell Distribution Width 13.2, Platelet Count 285, Mean Platelet Volume 5.2L, Neutrophils (%) (Auto) 55.0, Lymphocytes ( %) (Auto) 31.1, Monocytes (%) (Auto) 10.1H, Eosinophils (%) (Auto) 2.9, Basophils (%) (Auto) 0.8, Sodium Level 139, Potassium Level 3.6, Chloride Level 99, Carbon Dioxide Level 38H, Anion Gap 2L, Blood Urea Nitrogen 18, Creatinine 1.0, Estimat Glomerular Filtration Rate > 60, Glucose Level 71L, Calcium Level 8.7 Height (Feet): 5 Height (Inches): 10.00 Weight (Pounds): 495 General Appearance: no apparent distress Cardiovascular: regular rhythm, tachycardia Respiratory/Chest: decreased breath sounds Abdomen: soft Objective no change Devante Taylor MD Jan 07, 2019 13:37
[2019-01-07 14:03] LABS: ALANINE AMINOTRANSFERASE 33 U/L (12-78); ALBUMIN 2.7 G/DL (3.4-5.0); ALKALINE PHOSPHATASE 135 U/L (46-116); ASPARTATE AMINO TRANSFERASE 34 U/L (15-37); BILIRUBIN,DIRECT < 0.1 MG/DL (0.0-0.3); BILIRUBIN,TOTAL 0.4 MG/DL (0.2-1.0); PHOSPHORUS 4.1 MG/DL (2.5-4.9)
[2019-01-07 16:00] VITALS: BP 138/85
--- NOTE | 2019-01-07 18:13 | NUR ---
NURSE NOTES: patient said that he felt something funny. on seizure precaution. side rails padded. not actual seizing now. notified dr. elias and waiting for order.
--- NOTE | 2019-01-07 18:20 | NUR ---
NURSE NOTES: received order of Ativan 2mg IV prn q4hrs. order noted and carried out.
[2019-01-07] MEDS ORDERED: LORazepam Inj 2mg/ml 1ml IV PRN (18:30)
--- NOTE | 2019-01-07 19:05 | NUR ---
HAND-OFF: Report given to MICAELA Cervantes.
--- NOTE | 2019-01-07 19:45 | NUR ---
NURSE NOTES: Received report from MICAELA Hayes. Patient sitting in bed, alert x 4 and responsive. Patient requested pain medication and I informed him of his next dose. Bedside rails are padded as a seizure precaution. Bed is in lowest position and call light is within reach. Alarm on. Will continue to monitor patient.
[2019-01-07 20:00] VITALS: BP 123/97
[2019-01-07] MEDS: Dyna-Hex 2% Top Sol 2oz TOPIC SCH (20:00)
[2019-01-07] MEDS: TraZODone 100mg tab ORAL SCH (21:19)
[2019-01-07] MEDS: Atorvastatin 80mg tab ORAL SCH (21:20)
--- NOTE | 2019-01-07 23:45 | Neurology Progress Note ---
Interim History Interim History ROS Limited/Unobtainable: No Complaints: Seizures/ Weakness Events: This visit was performed on January 07, [address] Amador Brewster Interim History No changes to exam at this time. Review of Systems Neuro Review of Systems MS stable overall with left arm hand weakness/ spasticity significantly improved. Objective Physical Exam Last Vital Signs Date Time Temp Pulse Resp B/P (MAP) Pulse Ox O2 Delivery O2 Flow Rate FiO2 01/07/19 22:36 89 20 91 Room Air 21 01/07/19 20:00 98.1 123/97 (106) 01/06/19 21:48 2.0 Laboratory Tests Test 01/07/19 05:13 White Blood Count 6.5 K/UL (4.8-10.8) Red Blood Count 3.91 M/UL (4.70-6.10) L Hemoglobin 11.8 G/DL (14.2-18.0) L Hematocrit 35.9 % (42.0-52.0) L Mean Corpuscular Volume 92 FL (80-99) Mean Corpuscular Hemoglobin 30.1 PG (27.0-31.0) Mean Corpuscular Hemoglobin Concent 32.7 G/DL (32.0-36.0) Red Cell Distribution Width 13.2 % (11.6-14.8) Platelet Count 285 K/UL (150-450) Mean Platelet Volume 5.2 FL (6.5-10.1) L Neutrophils (%) (Auto) 55.0 % (45.0-75.0) Lymphocytes (%) (Auto) 31.1 % (20.0-45.0) Monocytes (%) (Auto) 10.1 % (1.0-10.0) H Eosinophils (%) (Auto) 2.9 % (0.0-3.0) Basophils (%) (Auto) 0.8 % (0.0-2.0) Sodium Level 139 MMOL/L (136-145) Potassium Level 3.6 MMOL/L (3.5-5.1) Chloride Level 99 MMOL/L (98-107) Carbon Dioxide Level 38 MMOL/L (21-32) H Anion Gap 2 mmol/L (5-15) L Blood Urea Nitrogen 18 mg/dL (7-18) Creatinine 1.0 MG/DL (0.55-1.30) Estimat Glomerular Filtration Rate > 60 mL/min (>60) Glucose Level 71 MG/DL (74-106) L Calcium Level 8.7 MG/DL (8.5-10.1) Phosphorus Level 4.1 MG/DL (2.5-4.9) Magnesium Level 1.9 MG/DL (1.8-2.4) Total Bilirubin 0.4 MG/DL (0.2-1.0) Direct Bilirubin < 0.1 MG/DL (0.0-0.3) Aspartate Amino Transf (AST/SGOT) 34 U/L (15-37) Alanine Aminotransferase (ALT/SGPT) 33 U/L (12-78) Alkaline Phosphatase 135 U/L (46-116) H Total Protein 7.0 G/DL (6.4-8.2) Albumin 2.7 G/DL (3.4-5.0) L General: well developed, other - Morbidly obese Head: normocophalic Neck: no rigidity EENT: benign Neurologic Exam Mental Status: awake, alert, oriented x4, normal cognition, good mathematical skills, normal recent memory, normal remote memory, preserved visuospatial function Speech: normal speech, no dysarthia Language: normal language, no aphasia Cranial Nerve II: fundus normal, visual bonilla, no papilledema Cranial Nerves III, IV, : PERRLA, EOMI, pupils Cranial Nerve V: normal facial sensations, temporales function normal, masseters function normal, pterygoids function normal Cranial Nerve VII: normal facial expressions, other Cranial Nerve VIII: normal hearing, no nystagmus Cranial Nerve IX: normal palate elevation, gag response Cranial Nerve X: no voice hoarseness Cranial Nerve XI: SCM symmetric, trapezii function normal Cranial Nerve XII: tongue midline, no tongue atrophy/fasciculations Motor System: normal muscle tone, no involuntary movement, no muscle wasting Sensory: normal pinprick, normal light touch, normal position sense, normal graphesthesia Coordination: normal heel to villarreal bilaterally, negative Romberg test Deep Tendon Reflexes: 1+ bicep (L), 1+ bicep (R), 1+ tricep (L), 1+ tricep (R) , 1+ brachioradialis (L), 1+ brachioradialis (R), 1+ knee (L), 1+ knee (R), 1+ ankle (L), 1+ ankle (R) Reflexes: flexor plantar (L), flexor plantar (R); extensor plantar (L), extensor plantar (R) Stance: other - Broad based Gait: stable Objective Left arm, predominantly hand weakness at this time. Alert and oriented Ambulatory with cellulitis persisting on BLE He does not have proximal left arm weakness at this time, mild facial weakness, tongue deviated on exam Impression/Recommendations Problems: (1) Seizures Assessment & Plan: Keppra 2000mg BID PO Maintain SBP<140 Q4 Hour Neuro Checks Ativan 2mg PRN for seizure activity CT Head w/o contrast when able to rule out CVA - also for consideration of MRI if CT negative. - low suspicion of CVA due to normotensive status without risk factors of elevated BP/ HgBA1c or thyroid dysfunction. Na 135-145 Continue pain management - Lyrica 100mg TID - Continue Gabapentin 600mg TID Intense PT recommended EEG negative for seizures, but consistent with mild encephalopathy. Same on Repeat Correct hypocalcemia (2) Morbid obesity (3) COPD (chronic obstructive pulmonary disease) (4) Uncontrolled seizures (5) Left-sided weakness Assessment & Plan: No seizure activity captured on EEG but mild to moderate degree of encephalopathy seen. Repeat EEG same as previous (6) Knee osteomyelits, right Status: doing well, stable, progressing, tolerating diet, ambulating well Recommendations Q4 hour Neuro Obs - NO NIGHTTIME OBS if stable Prevent delirium Maintain regular sleep schedule and reduce nighttime activities such as observations (if unnecessary) Maintain Keppra dose at 2g BID, no additional meds at this time. Patient neurologically stable at this time for discharge Vicky Taylor N.P. Jan 07, 2019 23:45
--- NOTE | 2019-01-07 23:58 | Cardiology Progress Note ---
Assessment/Plan Assessment/Plan 1. Possibly non-cardiac chest pain, 12 lead ECG shows no evidence of ischemia, trop I level is normal. 2. Morbid obesity with panniculitis, normal LV systolic and diastolic function per recent echo, clear for "removal of pannus". 3. Chronic venous insufficiency. 4. HTN, well controlled, continue losartan. 5. COPD 6. Seizure D/O. Subjective Subjective No chest pain or SOB noted. Objective Last 24 Hour Vital Signs Date Time Temp Pulse Resp B/P (MAP) Pulse Ox O2 Delivery O2 Flow Rate FiO2 01/07/19 22:36 89 20 91 Room Air 21 01/07/19 21:00 Room Air 01/07/19 20:00 98.1 101 20 123/97 (106) 01/07/19 16:00 98.4 95 20 138/85 (102) 96 01/07/19 12:00 97.9 93 20 156/96 (116) 96 01/07/19 09:00 Room Air 01/07/19 08:54 121/74 01/07/19 08:00 98.7 97 20 121/74 (90) 98 01/07/19 04:00 98.1 90 20 142/62 (88) 95 01/07/19 00:00 98.2 88 20 120/58 (78) 94 Intake and Output 01/06/19 01/07/19 19:00 07:00 Intake Total 1730 ml 960 ml Balance 1730 ml 960 ml Intake Oral 1730 ml 960 ml # Voids 3 5 # Bowel Movements 1 1 2D Echo: Normal LV systolic function, RVSP 34 mmHg, RAP elevated at 15 mmHg Laboratory Tests Test 01/07/19 05:13 White Blood Count 6.5 K/UL (4.8-10.8) Red Blood Count 3.91 M/UL (4.70-6.10) L Hemoglobin 11.8 G/DL (14.2-18.0) L Hematocrit 35.9 % (42.0-52.0) L Mean Corpuscular Volume 92 FL (80-99) Mean Corpuscular Hemoglobin 30.1 PG (27.0-31.0) Mean Corpuscular Hemoglobin Concent 32.7 G/DL (32.0-36.0) Red Cell Distribution Width 13.2 % (11.6-14.8) Platelet Count 285 K/UL (150-450) Mean Platelet Volume 5.2 FL (6.5-10.1) L Neutrophils (%) (Auto) 55.0 % (45.0-75.0) Lymphocytes (%) (Auto) 31.1 % (20.0-45.0) Monocytes (%) (Auto) 10.1 % (1.0-10.0) H Eosinophils (%) (Auto) 2.9 % (0.0-3.0) Basophils (%) (Auto) 0.8 % (0.0-2.0) Sodium Level 139 MMOL/L (136-145) Potassium Level 3.6 MMOL/L (3.5-5.1) Chloride Level 99 MMOL/L (98-107) Carbon Dioxide Level 38 MMOL/L (21-32) H Anion Gap 2 mmol/L (5-15) L Blood Urea Nitrogen 18 mg/dL (7-18) Creatinine 1.0 MG/DL (0.55-1.30) Estimat Glomerular Filtration Rate > 60 mL/min (>60) Glucose Level 71 MG/DL (74-106) L Calcium Level 8.7 MG/DL (8.5-10.1) Phosphorus Level 4.1 MG/DL (2.5-4.9) Magnesium Level 1.9 MG/DL (1.8-2.4) Total Bilirubin 0.4 MG/DL (0.2-1.0) Direct Bilirubin < 0.1 MG/DL (0.0-0.3) Aspartate Amino Transf (AST/SGOT) 34 U/L (15-37) Alanine Aminotransferase (ALT/SGPT) 33 U/L (12-78) Alkaline Phosphatase 135 U/L (46-116) H Total Protein 7.0 G/DL (6.4-8.2) Albumin 2.7 G/DL (3.4-5.0) L Objective HEENT: Atraumatic and normocephalic. Anicteric. Pupils are equal, round, and reactive to light and accommodation. NECK: JVP cannot be assessed due to obesity. No carotid bruit. CARDIOVASCULAR: Normal S1, S2. Regular rate and rhythm. No murmurs, gallops, or rubs. PMI is at fourth intercostal space at the midclavicular line. LUNGS: Clear to auscultation bilaterally. ABDOMEN: Distended due to pannus formation, cannot palpate hepatosplenomegaly. Positive bowel sounds. EXTREMITIES: No lower extremity edema, clubbing or cyanosis. Carlos Martins MD Jan 07, 2019 23:58
[2019-01-08] VITALS: BP 123/79
[2019-01-08 04:00] VITALS: BP 133/75
[2019-01-08 07:23] LABS: ANION GAP 3 mmol/L (5-15); BLOOD UREA NITROGEN 17 mg/dL (7-18); CALCIUM 8.9 MG/DL (8.5-10.1); CARBON DIOXIDE 38 MMOL/L (21-32); CHLORIDE 96 MMOL/L (98-107); CREATININE 1.1 MG/DL (0.55-1.30); POTASSIUM 3.9 MMOL/L (3.5-5.1); SODIUM 137 MMOL/L (136-145)
[2019-01-08 07:29] LABS: BASOPHILS % (AUTO) 0.6 % (0.0-2.0); EOSINOPHILS % (AUTO) 2.6 % (0.0-3.0); HEMATOCRIT 36.2 % (42.0-52.0); LYMPHOCYTES % (AUTO) 23.9 % (20.0-45.0); MEAN CORPUSCULAR VOLUME 91 FL (80-99); MONOCYTES % (AUTO) 6.6 % (1.0-10.0); NEUTROPHILS % (AUTO) 66.3 % (45.0-75.0); PLATELET COUNT 283 K/UL (150-450); RED BLOOD COUNT 3.97 M/UL (4.70-6.10); RED CELL DISTRIBUTION WIDTH 13.1 % (11.6-14.8); WHITE BLOOD COUNT 6.3 K/UL (4.8-10.8)
--- NOTE | 2019-01-08 07:31 | NUR ---
HAND-OFF: Report given to MICAELA Connell.
[2019-01-08 08:00] VITALS: BP 125/66
[2019-01-08] MEDS: Lyrica 50mg cap ORAL SCH ×3 (09:26→17:53)
[2019-01-08] MEDS: DULoxetine 30mg cap ORAL SCH (09:26)
[2019-01-08] MEDS: Magnesium Oxide 400mg tab ORAL SCH ×3 (09:27→17:53)
[2019-01-08] MEDS: Losartan 25mg tab ORAL SCH (09:27)
[2019-01-08] MEDS: Heparin 5000 units/ml inj SUBQ SCH ×2 (09:34→22:13)
--- NOTE | 2019-01-08 09:59 | NUR ---
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 CHRONIC VENOUS INSUFFICIENCY VS: BP 123/79, P 83, T 97.9, RR 22, SpO2 91 RBC 3.97, H&H 12.0/36.2 IS:HEPARIN SUBQ GABAPENTIN 600mg COZAAR 25mG MAGNESIUM OXIDE 800mg PLAVIX 75mg CYMBALTA 30mg LYRICA 100mg DILAUDID 4mG KEPPRA 2000mg LASIX 20mg IV MED/SURG STATUS
--- NOTE | 2019-01-08 10:26 | Infectious Diseases Prog Note ---
Assessment/Plan Assessment/Plan B/l Leg cellulitis and panniculitis - in the setting of chronic venous stasis Active infectious cellulitis essentially resolved. Now he has chronic venous stasis and neuropathic pain with poorly healing wounds. Alot off this is due to the severe swelling in his feet but also he is poorly compliant with wound care instructions. L side weakness/spasticity- thought be 2ry to seizures- r/O CVA- no active infectious process at present (pt afebrile- doubt meningitis at this moment) Afebrile No leukocytosis -CXR: No acute findings CVA HTN bipolar disorder w/ psychotic features tobacco abuse anxiety disorder chronic pain CHF seizure disorder COPD morbid obesity Dm2 HTN SNF resident Plan: - Monitor off abx - Need wound care for healing. - Patient pooly compliant with leg elevation and wound dressing instruction - 01/07/19 SP IV Dapto d# 14 - 01/06/19 S/P Levofloxacin #7 - 12/25 sp Bactrim #4/14 and add IV Ancef #3/14 for cellulitis - Patient pooly compliant with leg elevation and wound dressing instruction - Monitor CBC/CMP, temperatures - aspiration precautions - wound care per hospital protocol Subjective Allergies: Coded Allergies: ASPIRIN (Verified Allergy, Unknown, 07/14/18) KETOROLAC (Verified Allergy, Unknown, 07/14/18) PENICILLINS (Verified Allergy, Unknown, 12/23/18) tolerated Ancef on 08/2018 Subjective Afebrile No leukocytosis Waiting for placement Objective Vital Signs Last 24 Hour Vital Signs Date Time Temp Pulse Resp B/P (MAP) Pulse Ox O2 Delivery O2 Flow Rate FiO2 01/08/19 09:27 133/75 01/08/19 07:55 83 18 93 Room Air 21 01/08/19 04:00 98.1 87 22 133/75 (94) 93 01/08/19 00:00 97.9 100 20 123/79 (94) 95 01/07/19 22:36 89 20 91 Room Air 21 01/07/19 21:00 Room Air 01/07/19 20:00 98.1 101 20 123/97 (106) 01/07/19 16:00 98.4 95 20 138/85 (102) 96 01/07/19 12:00 97.9 93 20 156/96 (116) 96 Height (Feet): 5 Height (Inches): 10.00 Weight (Pounds): 495 Objective GEN: NAD HEENT: NCAT, MMM Respiratory/Chest: CTAB, No W Cardiovascular: RRR, S1, S2 Abdomen: Soft, ND Ext. LE with severe edema - Legs bandaged Infectious cellulitis essentially resolved Laboratory Tests Test 01/08/19 05:34 White Blood Count 6.3 K/UL (4.8-10.8) Red Blood Count 3.97 M/UL (4.70-6.10) L Hemoglobin 12.0 G/DL (14.2-18.0) L Hematocrit 36.2 % (42.0-52.0) L Mean Corpuscular Volume 91 FL (80-99) Mean Corpuscular Hemoglobin 30.1 PG (27.0-31.0) Mean Corpuscular Hemoglobin Concent 33.0 G/DL (32.0-36.0) Red Cell Distribution Width 13.1 % (11.6-14.8) Platelet Count 283 K/UL (150-450) Mean Platelet Volume 5.2 FL (6.5-10.1) L Neutrophils (%) (Auto) 66.3 % (45.0-75.0) Lymphocytes (%) (Auto) 23.9 % (20.0-45.0) Monocytes (%) (Auto) 6.6 % (1.0-10.0) Eosinophils (%) (Auto) 2.6 % (0.0-3.0) Basophils (%) (Auto) 0.6 % (0.0-2.0) Sodium Level 137 MMOL/L (136-145) Potassium Level 3.9 MMOL/L (3.5-5.1) Chloride Level 96 MMOL/L (98-107) L Carbon Dioxide Level 38 MMOL/L (21-32) H Anion Gap 3 mmol/L (5-15) L Blood Urea Nitrogen 17 mg/dL (7-18) Creatinine 1.1 MG/DL (0.55-1.30) Estimat Glomerular Filtration Rate > 60 mL/min (>60) Glucose Level 105 MG/DL (74-106) Calcium Level 8.9 MG/DL (8.5-10.1) Current Medications Medications (Trade) Dose Ordered Sig/Luis Route PRN Reason Start Time Stop Time Status Last Admin Dose Admin Acetaminophen (Tylenol) 650 mg Q4H PRN ORAL fever 12/15/18 14:54 01/14/19 14:53 Albuterol/ Ipratropium (Albuterol/ Ipratropium) 3 ml Q4H PRN HHN Shortness of Breath 01/04/19 20:30 01/09/19 20:29 01/06/19 21:35 Atorvastatin Calcium (Lipitor) 80 mg BEDTIME ORAL 12/15/18 21:00 01/14/19 20:59 01/07/19 21:20 Chlorhexidine Gluconate (Ruby-Hex 2%) 1 applic DAILY@2000 TOPIC 12/22/18 20:00 01/21/19 19:59 01/06/19 21:01 Clonidine HCl (Catapres Tab) 0.1 mg Q4H PRN ORAL For High Blood Pressure 12/15/18 14:56 01/14/19 14:55 Clopidogrel Bisulfate (Plavix) 75 mg DAILY ORAL 12/16/18 09:00 01/14/19 08:59 01/08/19 09:26 Dextrose (Dextrose 50%) 25 ml Q30M PRN IV Hypoglycemia 12/15/18 15:15 01/13/19 23:44 Dextrose (Dextrose 50%) 50 ml Q30M PRN IV Hypoglycemia 12/15/18 15:15 01/13/19 23:44 Duloxetine HCl (Cymbalta) 30 mg DAILY ORAL 12/16/18 09:00 01/14/19 08:59 01/08/19 09:26 Furosemide (Lasix) 20 mg Q6HR IV 12/22/18 00:00 01/21/19 00:00 01/08/19 05:27 Gabapentin (Neurontin) 600 mg THREE TIMES A DAY ORAL 12/15/18 18:00 01/14/19 08:59 01/08/19 09:27 Heparin Sodium (Porcine) (Heparin 5000 units/ml) 5,000 units EVERY 12 HOURS SUBQ 12/15/18 21:00 01/14/19 08:59 01/08/19 09:34 Hydromorphone HCl (Dilaudid) 4 mg Q4H PRN IVP Breakthrough Pain 01/01/19 10:29 01/08/19 10:28 01/08/19 09:26 Levetiracetam (Keppra) 2,000 mg Q12HR ORAL 01/01/19 21:00 01/18/19 08:59 01/08/19 09:26 Lorazepam (Ativan 2mg/ml 1ml) 2 mg Q4H PRN IV For Anxiety 01/07/19 18:30 01/14/19 18:29 Losartan Potassium (Cozaar) 25 mg DAILY ORAL 12/29/18 13:45 01/28/19 13:44 01/08/19 09:27 Magnesium Oxide (Mag-Ox 400mg) 800 mg THREE TIMES A DAY ORAL 01/02/19 18:00 02/01/19 17:59 01/08/19 09:27 Methadone HCl (Methadone HCl) 15 mg Q8HR ORAL 01/06/19 14:00 01/13/19 13:59 01/07/19 14:48 Nitroglycerin (Ntg) 0.4 mg Q5M X 3 DOSES PRN SL Prn Chest Pain 12/15/18 14:45 01/13/19 23:44 01/02/19 11:59 Ondansetron HCl (Zofran) 4 mg Q6H PRN IVP Nausea & Vomiting 12/15/18 14:55 01/14/19 14:54 12/17/18 10:19 Polyethylene Glycol (Miralax) 17 gm HSPRN PRN ORAL Constipation 12/15/18 14:55 01/14/19 14:54 Pregabalin (Lyrica) 100 mg THREE TIMES A DAY ORAL 12/26/18 09:00 01/19/19 22:59 01/08/19 09:26 Promethazine HCl/ Codeine (Phenergan with Codeine) 5 ml Q4H PRN ORAL For Cough 12/28/18 12:00 01/27/19 11:59 01/01/19 01:34 Trazodone HCl (Desyrel) 100 mg BEDTIME ORAL 12/15/18 21:00 01/14/19 20:59 01/07/19 21:19 Elliot Chauhan MD Jan 08, 2019 10:26
--- NOTE | 2019-01-08 10:30 | NUR ---
PT NOTE Attempted to see patient for PT treatment. Patient declining to participate with PT at this time, c/o left knee pain and swelling. Becki HINOJOSA notified.
[2019-01-08 12:00] VITALS: BP 130/70
--- NOTE | 2019-01-08 13:36 | General Progress Note ---
Assessment/Plan Problem List: (1) Abdominal pannus ICD Codes: E65 - Localized adiposity SNOMED: 9790850078741 (2) Peripheral edema ICD Codes: R60.9 - Edema, unspecified SNOMED: 045730905 (3) Abdominal wall cellulitis ICD Codes: L03.311 - Cellulitis of abdominal wall SNOMED: 19145355 (4) Leg pain ICD Codes: M79.606 - Pain in leg, unspecified SNOMED: 37288988 (5) COPD (chronic obstructive pulmonary disease) ICD Codes: J44.9 - Chronic obstructive pulmonary disease, unspecified SNOMED: 06369368 (6) Seizures ICD Codes: R56.9 - Unspecified convulsions SNOMED: 99238577 (7) Morbid obesity ICD Codes: E66.01 - Morbid (severe) obesity due to excess calories SNOMED: 987962694 (8) Cerebrovascular accident ICD Codes: I63.9 - Cerebral infarction, unspecified SNOMED: 112753963 (9) Left-sided weakness ICD Codes: R53.1 - Weakness SNOMED: 947039284 Status: stable, progressing Assessment/Plan: pt diet neuro f/u wound care abx pain control cbc bmp am dc to snf if clear Subjective Constitutional: Reports: weakness Allergies: Coded Allergies: ASPIRIN (Verified Allergy, Unknown, 07/14/18) KETOROLAC (Verified Allergy, Unknown, 07/14/18) PENICILLINS (Verified Allergy, Unknown, 12/23/18) tolerated Ancef on 08/2018 All Systems: reviewed and negative except above Subjective sleepy calm Objective Last 24 Hour Vital Signs Date Time Temp Pulse Resp B/P (MAP) Pulse Ox O2 Delivery O2 Flow Rate FiO2 01/08/19 09:56 98.1 01/08/19 09:27 133/75 01/08/19 09:00 Room Air 01/08/19 08:00 98.2 102 18 125/66 (85) 99 01/08/19 07:55 83 18 93 Room Air 21 01/08/19 04:00 98.1 87 22 133/75 (94) 93 01/08/19 00:00 97.9 100 20 123/79 (94) 95 01/07/19 22:36 89 20 91 Room Air 21 01/07/19 21:00 Room Air 01/07/19 20:00 98.1 101 20 123/97 (106) 01/07/19 16:00 98.4 95 20 138/85 (102) 96 Intake and Output 01/07/19 01/08/19 19:00 07:00 Intake Total 1800 ml 1500 ml Output Total 0 ml Balance 1800 ml 1500 ml Intake Oral 1800 ml 1500 ml Stool Total 0 ml # Voids 4 9 # Bowel Movements 2 Laboratory Tests 01/08/19 05:34: White Blood Count 6.3, Red Blood Count 3.97L, Hemoglobin 12.0L, Hematocrit 36.2L , Mean Corpuscular Volume 91, Mean Corpuscular Hemoglobin 30.1, Mean Corpuscular Hemoglobin Concent 33.0, Red Cell Distribution Width 13.1, Platelet Count 283, Mean Platelet Volume 5.2L, Neutrophils (%) (Auto) 66.3, Lymphocytes ( %) (Auto) 23.9, Monocytes (%) (Auto) 6.6, Eosinophils (%) (Auto) 2.6, Basophils (%) (Auto) 0.6, Sodium Level 137, Potassium Level 3.9, Chloride Level 96L, Carbon Dioxide Level 38H, Anion Gap 3L, Blood Urea Nitrogen 17, Creatinine 1.1, Estimat Glomerular Filtration Rate > 60, Glucose Level 105, Calcium Level 8.9 Height (Feet): 5 Height (Inches): 10.00 Weight (Pounds): 495 General Appearance: lethargic EENT: normal ENT inspection Neck: normal alignment Cardiovascular: normal peripheral pulses, normal rate, regular rhythm Respiratory/Chest: chest wall non-tender, lungs clear, normal breath sounds Abdomen: normal bowel sounds, soft, distended Extremities: normal inspection Edema: 1+ Arm (L), 1+ Arm (R), 1+ Leg (L), 1+ Leg (R), 1+ Pedal (L), 1+ Pedal ( R), 1+ Generalized Edema: trace edema Neurologic: responsive, motor weakness Skin: normal pigmentation, warm/dry Objective bl' villarreal dressing c&Ernesto Garcia DO Jan 08, 2019 13:36
--- NOTE | 2019-01-08 14:28 | Nephrology Progress Note ---
Assessment/Plan Problem List: (1) Hyponatremia (2) Morbid obesity (3) COPD (chronic obstructive pulmonary disease) Plan Mag IV as needed Mag PO TID Low Na resolved cont per consultants Subjective ROS Limited/Unobtainable: No Constitutional: Reports: malaise Objective Objective Last 24 Hour Vital Signs Date Time Temp Pulse Resp B/P (MAP) Pulse Ox O2 Delivery O2 Flow Rate FiO2 01/08/19 12:00 98.5 98 16 130/70 (90) 100 01/08/19 09:56 98.1 01/08/19 09:27 133/75 01/08/19 09:00 Room Air 01/08/19 08:00 98.2 102 18 125/66 (85) 99 01/08/19 07:55 83 18 93 Room Air 21 01/08/19 04:00 98.1 87 22 133/75 (94) 93 01/08/19 00:00 97.9 100 20 123/79 (94) 95 01/07/19 22:36 89 20 91 Room Air 21 01/07/19 21:00 Room Air 01/07/19 20:00 98.1 101 20 123/97 (106) 01/07/19 16:00 98.4 95 20 138/85 (102) 96 Intake and Output 01/07/19 01/08/19 19:00 07:00 Intake Total 1800 ml 1700 ml Output Total 0 ml Balance 1800 ml 1700 ml Intake Oral 1800 ml 1700 ml Stool Total 0 ml # Voids 4 9 # Bowel Movements 2 Laboratory Tests 01/08/19 05:34: White Blood Count 6.3, Red Blood Count 3.97L, Hemoglobin 12.0L, Hematocrit 36.2L , Mean Corpuscular Volume 91, Mean Corpuscular Hemoglobin 30.1, Mean Corpuscular Hemoglobin Concent 33.0, Red Cell Distribution Width 13.1, Platelet Count 283, Mean Platelet Volume 5.2L, Neutrophils (%) (Auto) 66.3, Lymphocytes ( %) (Auto) 23.9, Monocytes (%) (Auto) 6.6, Eosinophils (%) (Auto) 2.6, Basophils (%) (Auto) 0.6, Sodium Level 137, Potassium Level 3.9, Chloride Level 96L, Carbon Dioxide Level 38H, Anion Gap 3L, Blood Urea Nitrogen 17, Creatinine 1.1, Estimat Glomerular Filtration Rate > 60, Glucose Level 105, Calcium Level 8.9 Height (Feet): 5 Height (Inches): 10.00 Weight (Pounds): 495 General Appearance: no apparent distress Objective no change Devante Taylor MD Jan 08, 2019 14:28
--- NOTE | 2019-01-08 14:53 | Pulmonology Progress Note ---
Assessment/Plan Problems: (1) Morbid obesity (2) Peripheral edema (3) Cellulitis (4) Seizures (5) Cerebrovascular accident (6) Left-sided weakness (7) COPD (chronic obstructive pulmonary disease) (8) Right heart failure (9) Lumbar spondylosis (10) ADALBERTO (obstructive sleep apnea) Assessment/Plan all meds /notes reviewed pt/ot increase dialudid to 4 mg and add Methadone 10Q8 respiratory treatment titrate fio2 to sat of 92% dvt prophylaxis Subjective ROS Limited/Unobtainable: No Constitutional: Reports: no symptoms HEENT: Repors: no symptoms Allergies: Coded Allergies: ASPIRIN (Verified Allergy, Unknown, 07/14/18) KETOROLAC (Verified Allergy, Unknown, 07/14/18) PENICILLINS (Verified Allergy, Unknown, 12/23/18) tolerated Ancef on 08/2018 Objective Last 24 Hour Vital Signs Date Time Temp Pulse Resp B/P (MAP) Pulse Ox O2 Delivery O2 Flow Rate FiO2 01/08/19 12:00 98.5 98 16 130/70 (90) 100 01/08/19 09:56 98.1 01/08/19 09:27 133/75 01/08/19 09:00 Room Air 01/08/19 08:00 98.2 102 18 125/66 (85) 99 01/08/19 07:55 83 18 93 Room Air 21 01/08/19 04:00 98.1 87 22 133/75 (94) 93 01/08/19 00:00 97.9 100 20 123/79 (94) 95 01/07/19 22:36 89 20 91 Room Air 21 01/07/19 21:00 Room Air 01/07/19 20:00 98.1 101 20 123/97 (106) 01/07/19 16:00 98.4 95 20 138/85 (102) 96 Intake and Output 01/07/19 01/08/19 19:00 07:00 Intake Total 1800 ml 1700 ml Output Total 0 ml Balance 1800 ml 1700 ml Intake Oral 1800 ml 1700 ml Stool Total 0 ml # Voids 4 9 # Bowel Movements 2 Objective HEENT: normocephalic, atraumatic Respiratory/Chest: chest wall non-tender, lungs clear Cardiovascular: normal peripheral pulses, normal rate Abdomen: normal bowel sounds, no organomegaly, massive fat on abdomen Extremities: no cyanosis Skin: no lesions Laboratory Tests 01/08/19 05:34: White Blood Count 6.3, Red Blood Count 3.97L, Hemoglobin 12.0L, Hematocrit 36.2L , Mean Corpuscular Volume 91, Mean Corpuscular Hemoglobin 30.1, Mean Corpuscular Hemoglobin Concent 33.0, Red Cell Distribution Width 13.1, Platelet Count 283, Mean Platelet Volume 5.2L, Neutrophils (%) (Auto) 66.3, Lymphocytes ( %) (Auto) 23.9, Monocytes (%) (Auto) 6.6, Eosinophils (%) (Auto) 2.6, Basophils (%) (Auto) 0.6, Sodium Level 137, Potassium Level 3.9, Chloride Level 96L, Carbon Dioxide Level 38H, Anion Gap 3L, Blood Urea Nitrogen 17, Creatinine 1.1, Estimat Glomerular Filtration Rate > 60, Glucose Level 105, Calcium Level 8.9 Current Medications Medications (Trade) Dose Ordered Sig/Luis Route PRN Reason Start Time Stop Time Status Last Admin Dose Admin Acetaminophen (Tylenol) 650 mg Q4H PRN ORAL fever 12/15/18 14:54 01/14/19 14:53 Albuterol/ Ipratropium (Albuterol/ Ipratropium) 3 ml Q4H PRN HHN Shortness of Breath 01/04/19 20:30 01/09/19 20:29 01/06/19 21:35 Atorvastatin Calcium (Lipitor) 80 mg BEDTIME ORAL 12/15/18 21:00 01/14/19 20:59 01/07/19 21:20 Chlorhexidine Gluconate (Ruby-Hex 2%) 1 applic DAILY@1999 TOPIC 12/22/18 20:00 01/21/19 19:59 01/06/19 21:01 Clonidine HCl (Catapres Tab) 0.1 mg Q4H PRN ORAL For High Blood Pressure 12/15/18 14:56 01/14/19 14:55 Clopidogrel Bisulfate (Plavix) 75 mg DAILY ORAL 12/16/18 09:00 01/14/19 08:59 01/08/19 09:26 Dextrose (Dextrose 50%) 25 ml Q30M PRN IV Hypoglycemia 12/15/18 15:15 01/13/19 23:44 Dextrose (Dextrose 50%) 50 ml Q30M PRN IV Hypoglycemia 12/15/18 15:15 01/13/19 23:44 Duloxetine HCl (Cymbalta) 30 mg DAILY ORAL 12/16/18 09:00 01/14/19 08:59 01/08/19 09:26 Furosemide (Lasix) 20 mg Q6HR IV 12/22/18 00:00 01/21/19 00:00 01/08/19 12:35 Gabapentin (Neurontin) 600 mg THREE TIMES A DAY ORAL 12/15/18 18:00 01/14/19 08:59 01/08/19 12:36 Heparin Sodium (Porcine) (Heparin 5000 units/ml) 5,000 units EVERY 12 HOURS SUBQ 12/15/18 21:00 01/14/19 08:59 01/08/19 09:34 Hydromorphone HCl (Dilaudid) 4 mg Q4H PRN IVP For Pain 01/08/19 13:28 01/15/19 13:27 01/08/19 13:33 Levetiracetam (Keppra) 2,000 mg Q12HR ORAL 01/01/19 21:00 01/18/19 08:59 01/08/19 09:26 Lorazepam (Ativan 2mg/ml 1ml) 2 mg Q4H PRN IV For Anxiety 01/07/19 18:30 01/14/19 18:29 Losartan Potassium (Cozaar) 25 mg DAILY ORAL 12/29/18 13:45 01/28/19 13:44 01/08/19 09:27 Magnesium Oxide (Mag-Ox 400mg) 800 mg THREE TIMES A DAY ORAL 01/02/19 18:00 02/01/19 17:59 01/08/19 12:36 Methadone HCl (Methadone HCl) 15 mg Q8HR ORAL 01/06/19 14:00 01/13/19 13:59 01/07/19 14:48 Nitroglycerin (Ntg) 0.4 mg Q5M X 3 DOSES PRN SL Prn Chest Pain 12/15/18 14:45 01/13/19 23:44 01/02/19 11:59 Ondansetron HCl (Zofran) 4 mg Q6H PRN IVP Nausea & Vomiting 12/15/18 14:55 01/14/19 14:54 12/17/18 10:19 Polyethylene Glycol (Miralax) 17 gm HSPRN PRN ORAL Constipation 12/15/18 14:55 01/14/19 14:54 Pregabalin (Lyrica) 100 mg THREE TIMES A DAY ORAL 12/26/18 09:00 01/19/19 22:59 01/08/19 12:36 Promethazine HCl/ Codeine (Phenergan with Codeine) 5 ml Q4H PRN ORAL For Cough 12/28/18 12:00 01/27/19 11:59 01/01/19 01:34 Trazodone HCl (Desyrel) 100 mg BEDTIME ORAL 12/15/18 21:00 01/14/19 20:59 01/07/19 21:19 Bill Dixon MD Jan 08, 2019 14:53
--- NOTE | 2019-01-08 15:20 | Cardiology Progress Note ---
Assessment/Plan Assessment/Plan 1. Possibly non-cardiac chest pain, 12 lead ECG shows no evidence of ischemia, trop I level is normal. 2. Morbid obesity with panniculitis, normal LV systolic and diastolic function per recent echo, clear for "removal of pannus". 3. Chronic venous insufficiency. 4. HTN, well controlled, continue losartan. Subjective Subjective No chest pain or SOB noted. Objective Last 24 Hour Vital Signs Date Time Temp Pulse Resp B/P (MAP) Pulse Ox O2 Delivery O2 Flow Rate FiO2 01/08/19 14:03 98.1 01/08/19 12:00 98.5 98 16 130/70 (90) 100 01/08/19 09:56 98.1 01/08/19 09:27 133/75 01/08/19 09:00 Room Air 01/08/19 08:00 98.2 102 18 125/66 (85) 99 01/08/19 07:55 83 18 93 Room Air 21 01/08/19 04:00 98.1 87 22 133/75 (94) 93 01/08/19 00:00 97.9 100 20 123/79 (94) 95 01/07/19 22:36 89 20 91 Room Air 21 01/07/19 21:00 Room Air 01/07/19 20:00 98.1 101 20 123/97 (106) 01/07/19 16:00 98.4 95 20 138/85 (102) 96 Intake and Output 01/07/19 01/08/19 19:00 07:00 Intake Total 1800 ml 1700 ml Output Total 0 ml Balance 1800 ml 1700 ml Intake Oral 1800 ml 1700 ml Stool Total 0 ml # Voids 4 9 # Bowel Movements 2 2D Echo: Normal LV systolic function, RVSP 34 mmHg, RAP elevated at 15 mmHg Laboratory Tests Test 01/08/19 05:34 White Blood Count 6.3 K/UL (4.8-10.8) Red Blood Count 3.97 M/UL (4.70-6.10) L Hemoglobin 12.0 G/DL (14.2-18.0) L Hematocrit 36.2 % (42.0-52.0) L Mean Corpuscular Volume 91 FL (80-99) Mean Corpuscular Hemoglobin 30.1 PG (27.0-31.0) Mean Corpuscular Hemoglobin Concent 33.0 G/DL (32.0-36.0) Red Cell Distribution Width 13.1 % (11.6-14.8) Platelet Count 283 K/UL (150-450) Mean Platelet Volume 5.2 FL (6.5-10.1) L Neutrophils (%) (Auto) 66.3 % (45.0-75.0) Lymphocytes (%) (Auto) 23.9 % (20.0-45.0) Monocytes (%) (Auto) 6.6 % (1.0-10.0) Eosinophils (%) (Auto) 2.6 % (0.0-3.0) Basophils (%) (Auto) 0.6 % (0.0-2.0) Sodium Level 137 MMOL/L (136-145) Potassium Level 3.9 MMOL/L (3.5-5.1) Chloride Level 96 MMOL/L (98-107) L Carbon Dioxide Level 38 MMOL/L (21-32) H Anion Gap 3 mmol/L (5-15) L Blood Urea Nitrogen 17 mg/dL (7-18) Creatinine 1.1 MG/DL (0.55-1.30) Estimat Glomerular Filtration Rate > 60 mL/min (>60) Glucose Level 105 MG/DL (74-106) Calcium Level 8.9 MG/DL (8.5-10.1) Objective HEENT: Atraumatic and normocephalic. Anicteric. Pupils are equal, round, and reactive to light and accommodation. NECK: JVP cannot be assessed due to obesity. No carotid bruit. CARDIOVASCULAR: Normal S1, S2. Regular rate and rhythm. No murmurs, gallops, or rubs. PMI is at fourth intercostal space at the midclavicular line. LUNGS: Clear to auscultation bilaterally. ABDOMEN: Distended due to pannus formation, cannot palpate hepatosplenomegaly. Positive bowel sounds. EXTREMITIES: No lower extremity edema, clubbing or cyanosis. Carlos Martins MD Jan 08, 2019 15:20
[2019-01-08 16:00] VITALS: BP 124/76
--- NOTE | 2019-01-08 19:24 | NUR ---
HAND-OFF: Report given to MICAELA Hyman.
--- NOTE | 2019-01-08 19:30 | NUR ---
NURSE NOTES: Received patient in no apparent distress. A&OX4. PICC line noted on right upper arm, patent and intact. Dressing on bilateral legs are dry and intact. Bed in lowest position. Call light within reach. Will continue to monitor.
--- NOTE | 2019-01-08 19:45 | Neurology Progress Note ---
Interim History Interim History ROS Limited/Unobtainable: No Complaints: Seizures/ Weakness Events: This visit was performed on January 08, [address] Amador Brewster Review of Systems All Systems: reviewed and negative except above Objective Physical Exam Last Vital Signs Date Time Temp Pulse Resp B/P (MAP) Pulse Ox O2 Delivery O2 Flow Rate FiO2 01/08/19 18:23 97.5 01/08/19 16:00 90 18 124/76 (92) 94 01/08/19 09:00 Room Air 01/08/19 07:55 21 01/06/19 21:48 2.0 Laboratory Tests Test 01/08/19 05:34 White Blood Count 6.3 K/UL (4.8-10.8) Red Blood Count 3.97 M/UL (4.70-6.10) L Hemoglobin 12.0 G/DL (14.2-18.0) L Hematocrit 36.2 % (42.0-52.0) L Mean Corpuscular Volume 91 FL (80-99) Mean Corpuscular Hemoglobin 30.1 PG (27.0-31.0) Mean Corpuscular Hemoglobin Concent 33.0 G/DL (32.0-36.0) Red Cell Distribution Width 13.1 % (11.6-14.8) Platelet Count 283 K/UL (150-450) Mean Platelet Volume 5.2 FL (6.5-10.1) L Neutrophils (%) (Auto) 66.3 % (45.0-75.0) Lymphocytes (%) (Auto) 23.9 % (20.0-45.0) Monocytes (%) (Auto) 6.6 % (1.0-10.0) Eosinophils (%) (Auto) 2.6 % (0.0-3.0) Basophils (%) (Auto) 0.6 % (0.0-2.0) Sodium Level 137 MMOL/L (136-145) Potassium Level 3.9 MMOL/L (3.5-5.1) Chloride Level 96 MMOL/L (98-107) L Carbon Dioxide Level 38 MMOL/L (21-32) H Anion Gap 3 mmol/L (5-15) L Blood Urea Nitrogen 17 mg/dL (7-18) Creatinine 1.1 MG/DL (0.55-1.30) Estimat Glomerular Filtration Rate > 60 mL/min (>60) Glucose Level 105 MG/DL (74-106) Calcium Level 8.9 MG/DL (8.5-10.1) General: well developed, other - Morbidly obese Head: normocophalic Neck: no rigidity EENT: benign Neurologic Exam Mental Status: awake, alert, oriented x4, normal cognition, good mathematical skills, normal recent memory, normal remote memory, preserved visuospatial function Speech: normal speech, no dysarthia Language: normal language, no aphasia Cranial Nerve II: fundus normal, visual bonilla, no papilledema Cranial Nerves III, IV, : PERRLA, EOMI, pupils Cranial Nerve V: normal facial sensations, temporales function normal, masseters function normal, pterygoids function normal Cranial Nerve VII: normal facial expressions, other Cranial Nerve VIII: normal hearing, no nystagmus Cranial Nerve IX: normal palate elevation, gag response Cranial Nerve X: no voice hoarseness Cranial Nerve XI: SCM symmetric, trapezii function normal Cranial Nerve XII: tongue midline, no tongue atrophy/fasciculations Motor System: normal muscle tone, no involuntary movement, no muscle wasting Sensory: normal pinprick, normal light touch, normal position sense, normal graphesthesia Coordination: normal heel to villarreal bilaterally, negative Romberg test Deep Tendon Reflexes: 1+ bicep (L), 1+ bicep (R), 1+ tricep (L), 1+ tricep (R) , 1+ brachioradialis (L), 1+ brachioradialis (R), 1+ knee (L), 1+ knee (R), 1+ ankle (L), 1+ ankle (R) Reflexes: flexor plantar (L), flexor plantar (R); extensor plantar (L), extensor plantar (R) Stance: other - Broad based Gait: stable Objective Left arm, predominantly hand weakness at this time. Alert and oriented Ambulatory with cellulitis persisting on BLE He does not have proximal left arm weakness at this time, mild facial weakness, tongue deviated on exam Impression/Recommendations Problems: (1) Seizures Assessment & Plan: Keppra 2000mg BID PO Maintain SBP<140 Q4 Hour Neuro Checks Ativan 2mg PRN for seizure activity CT Head w/o contrast when able to rule out CVA - also for consideration of MRI if CT negative. - low suspicion of CVA due to normotensive status without risk factors of elevated BP/ HgBA1c or thyroid dysfunction. Na 135-145 Continue pain management - Lyrica 100mg TID - Continue Gabapentin 600mg TID Intense PT recommended EEG negative for seizures, but consistent with mild encephalopathy. Same on Repeat Correct hypocalcemia (2) Morbid obesity (3) COPD (chronic obstructive pulmonary disease) (4) Uncontrolled seizures (5) Left-sided weakness Assessment & Plan: No seizure activity captured on EEG but mild to moderate degree of encephalopathy seen. Repeat EEG same as previous (6) Knee osteomyelits, right Status: doing well, stable, progressing, tolerating diet, ambulating well Recommendations Q4 hour Neuro Obs - NO NIGHTTIME OBS if stable Prevent delirium Maintain regular sleep schedule and reduce nighttime activities such as observations (if unnecessary) Maintain Keppra dose at 2g BID, no additional meds at this time. Discharge planning for [facility]. Patient neurologically stable at this time for discharge Vicky Taylor N.P. Jan 08, 2019 19:45
[2019-01-08 20:00] VITALS: BP 120/68
--- NOTE | 2019-01-08 22:00 | NUR ---
NURSE NOTES: Dressing changed.
[2019-01-08] MEDS: Dyna-Hex 2% Top Sol 2oz TOPIC SCH (22:06)
[2019-01-08] MEDS: TraZODone 100mg tab ORAL SCH (22:06)
[2019-01-08] MEDS: Atorvastatin 80mg tab ORAL SCH (22:06)
[2019-01-09] VITALS: BP 131/64
[2019-01-09 04:00] VITALS: BP 101/51
--- NOTE | 2019-01-09 05:04 | NUR ---
NURSE NOTES: Dressing was wet by drainage. New dressing changed.
[2019-01-09 05:33] LABS: BASOPHILS % (AUTO) 0.7 % (0.0-2.0); EOSINOPHILS % (AUTO) 2.3 % (0.0-3.0); HEMATOCRIT 34.6 % (42.0-52.0); HEMOGLOBIN 11.5 G/DL (14.2-18.0); LYMPHOCYTES % (AUTO) 24.8 % (20.0-45.0); MEAN CORPUSCULAR VOLUME 91 FL (80-99); MONOCYTES % (AUTO) 7.8 % (1.0-10.0); NEUTROPHILS % (AUTO) 64.5 % (45.0-75.0); PLATELET COUNT 260 K/UL (150-450); RED BLOOD COUNT 3.81 M/UL (4.70-6.10); RED CELL DISTRIBUTION WIDTH 13.3 % (11.6-14.8); WHITE BLOOD COUNT 6.5 K/UL (4.8-10.8)
[2019-01-09 06:12] LABS: ANION GAP 2 mmol/L (5-15); BLOOD UREA NITROGEN 15 mg/dL (7-18); CALCIUM 8.7 MG/DL (8.5-10.1); CARBON DIOXIDE 39 MMOL/L (21-32); CHLORIDE 100 MMOL/L (98-107); CREATININE 1.1 MG/DL (0.55-1.30); POTASSIUM 4.3 MMOL/L (3.5-5.1); SODIUM 141 MMOL/L (136-145)
--- NOTE | 2019-01-09 07:30 | NUR ---
HAND-OFF: Report given to Hal HINOJOSA.
--- NOTE | 2019-01-09 07:56 | NUR ---
NURSE NOTES: received report from MICAELA Vasquez. patient in bed. alert. oriented. verbally responsive. no respiratory distress noted. Picc line on right upper arm intact. dressing dry and intact. no s/sx of infection. both lower legs with cellulitis. dressing intact. clean and dry. the bed in the lowest position . call light within reach. alarm on. will continue to monitor and provide plan of care.
[2019-01-09 08:00] VITALS: BP 126/77
[2019-01-09] MEDS: DULoxetine 30mg cap ORAL SCH (08:32)
[2019-01-09] MEDS: Magnesium Oxide 400mg tab ORAL SCH ×3 (08:32→17:15)
[2019-01-09] MEDS: Losartan 25mg tab ORAL SCH ×2 (08:32→08:42)
[2019-01-09] MEDS: Lyrica 50mg cap ORAL SCH ×3 (08:33→17:15)
[2019-01-09] MEDS: Heparin 5000 units/ml inj SUBQ SCH ×2 (08:35→20:28)
--- NOTE | 2019-01-09 09:18 | General Progress Note ---
Assessment/Plan Problem List: (1) Abdominal pannus ICD Codes: E65 - Localized adiposity SNOMED: 2931299019521 (2) Peripheral edema ICD Codes: R60.9 - Edema, unspecified SNOMED: 162883951 (3) Abdominal wall cellulitis ICD Codes: L03.311 - Cellulitis of abdominal wall SNOMED: 15217715 (4) Leg pain ICD Codes: M79.606 - Pain in leg, unspecified SNOMED: 40915743 (5) COPD (chronic obstructive pulmonary disease) ICD Codes: J44.9 - Chronic obstructive pulmonary disease, unspecified SNOMED: 49013455 (6) Seizures ICD Codes: R56.9 - Unspecified convulsions SNOMED: 22681638 (7) Morbid obesity ICD Codes: E66.01 - Morbid (severe) obesity due to excess calories SNOMED: 611182899 (8) Cerebrovascular accident ICD Codes: I63.9 - Cerebral infarction, unspecified SNOMED: 013213867 (9) Left-sided weakness ICD Codes: R53.1 - Weakness SNOMED: 284130041 Status: stable, progressing Assessment/Plan: pt diet neuro f/u wound care abx pain control cbc bmp am dc to snf if clear Subjective Constitutional: Reports: weakness Allergies: Coded Allergies: ASPIRIN (Verified Allergy, Unknown, 07/14/18) KETOROLAC (Verified Allergy, Unknown, 07/14/18) PENICILLINS (Verified Allergy, Unknown, 12/23/18) tolerated Ancef on 08/2018 All Systems: reviewed and negative except above Subjective sleepy calm Objective Last 24 Hour Vital Signs Date Time Temp Pulse Resp B/P (MAP) Pulse Ox O2 Delivery O2 Flow Rate FiO2 01/09/19 08:42 126/77 01/09/19 08:39 88 20 96 Room Air 21 01/09/19 08:00 97.9 88 18 126/77 (93) 96 01/09/19 04:00 98.2 100 20 101/51 (68) 98 01/09/19 00:00 97.6 90 18 131/64 (86) 94 01/08/19 21:00 Room Air 01/08/19 20:29 92 20 95 Room Air 21 01/08/19 20:00 97.8 95 18 120/68 (85) 95 01/08/19 18:23 97.5 01/08/19 16:00 97.5 90 18 124/76 (92) 94 01/08/19 12:00 98.5 98 16 130/70 (90) 100 01/08/19 09:56 98.1 01/08/19 09:27 133/75 Intake and Output 01/08/19 01/09/19 19:00 07:00 Intake Total 520 ml 1700 ml Output Total 800 ml Balance 520 ml 900 ml Intake Oral 520 ml 200 ml Other 1500 ml Output Urine Total 800 ml Stool Total 0 ml # Voids 5 # Bowel Movements 1 Laboratory Tests 01/09/19 04:58: White Blood Count 6.5, Red Blood Count 3.81L, Hemoglobin 11.5L, Hematocrit 34.6L , Mean Corpuscular Volume 91, Mean Corpuscular Hemoglobin 30.1, Mean Corpuscular Hemoglobin Concent 33.2, Red Cell Distribution Width 13.3, Platelet Count 260, Mean Platelet Volume 5.1L, Neutrophils (%) (Auto) 64.5, Lymphocytes ( %) (Auto) 24.8, Monocytes (%) (Auto) 7.8, Eosinophils (%) (Auto) 2.3, Basophils (%) (Auto) 0.7, Sodium Level 141, Potassium Level 4.3, Chloride Level 100, Carbon Dioxide Level 39H, Anion Gap 2L, Blood Urea Nitrogen 15, Creatinine 1.1, Estimat Glomerular Filtration Rate > 60, Glucose Level 107H, Calcium Level 8.7 Height (Feet): 5 Height (Inches): 10.00 Weight (Pounds): 495 General Appearance: lethargic EENT: normal ENT inspection Neck: normal alignment Cardiovascular: normal peripheral pulses, normal rate, regular rhythm Respiratory/Chest: chest wall non-tender, lungs clear, normal breath sounds Abdomen: normal bowel sounds, soft, distended Extremities: normal inspection Edema: 1+ Arm (L), 1+ Arm (R), 1+ Leg (L), 1+ Leg (R), 1+ Pedal (L), 1+ Pedal ( R), 1+ Generalized Edema: trace edema Neurologic: responsive, motor weakness Skin: normal pigmentation, warm/dry Objective bl' villarreal dressing c&d Ernesto Nicole DO Jan 09, 2019 09:18
--- NOTE | 2019-01-09 10:51 | Infectious Diseases Prog Note ---
Assessment/Plan Assessment/Plan sAssessment/Plan B/l Leg cellulitis and panniculitis - in the setting of chronic venous stasis Active infectious cellulitis essentially resolved. Now he has chronic venous stasis and neuropathic pain with poorly healing wounds. Alot off this is due to the severe swelling in his feet but also he is poorly compliant with wound care instructions. L side weakness/spasticity- thought be 2ry to seizures- r/O CVA- no active infectious process at present (pt afebrile- doubt meningitis at this moment) Afebrile No leukocytosis -CXR: No acute findings CVA HTN bipolar disorder w/ psychotic features tobacco abuse anxiety disorder chronic pain CHF seizure disorder COPD morbid obesity Dm2 HTN SNF resident Plan: - Monitor off abx - Need wound care for healing. - Patient pooly compliant with leg elevation and wound dressing instruction - 01/07/19 SP IV Dapto d# 14 - 01/06/19 S/P Levofloxacin #7 - 12/25 sp Bactrim #4/14 and add IV Ancef #3/14 for cellulitis - Patient pooly compliant with leg elevation and wound dressing instruction - Monitor CBC/CMP, temperatures - aspiration precautions - wound care per hospital protocol Subjective Allergies: Coded Allergies: ASPIRIN (Verified Allergy, Unknown, 07/14/18) KETOROLAC (Verified Allergy, Unknown, 07/14/18) PENICILLINS (Verified Allergy, Unknown, 12/23/18) tolerated Ancef on 08/2018 Subjective afebrile Objective Vital Signs Last 24 Hour Vital Signs Date Time Temp Pulse Resp B/P (MAP) Pulse Ox O2 Delivery O2 Flow Rate FiO2 01/09/19 09:00 Room Air 01/09/19 08:42 126/77 01/09/19 08:39 88 20 96 Room Air 21 01/09/19 08:00 97.9 88 18 126/77 (93) 96 01/09/19 04:00 98.2 100 20 101/51 (68) 98 01/09/19 00:00 97.6 90 18 131/64 (86) 94 01/08/19 21:00 Room Air 01/08/19 20:29 92 20 95 Room Air 21 01/08/19 20:00 97.8 95 18 120/68 (85) 95 01/08/19 18:23 97.5 01/08/19 16:00 97.5 90 18 124/76 (92) 94 01/08/19 12:00 98.5 98 16 130/70 (90) 100 Height (Feet): 5 Height (Inches): 10.00 Weight (Pounds): 495 HEENT: anicteric Respiratory/Chest: lungs clear Cardiovascular: normal rate Abdomen: normal bowel sounds Laboratory Tests Test 01/09/19 04:58 White Blood Count 6.5 K/UL (4.8-10.8) Red Blood Count 3.81 M/UL (4.70-6.10) L Hemoglobin 11.5 G/DL (14.2-18.0) L Hematocrit 34.6 % (42.0-52.0) L Mean Corpuscular Volume 91 FL (80-99) Mean Corpuscular Hemoglobin 30.1 PG (27.0-31.0) Mean Corpuscular Hemoglobin Concent 33.2 G/DL (32.0-36.0) Red Cell Distribution Width 13.3 % (11.6-14.8) Platelet Count 260 K/UL (150-450) Mean Platelet Volume 5.1 FL (6.5-10.1) L Neutrophils (%) (Auto) 64.5 % (45.0-75.0) Lymphocytes (%) (Auto) 24.8 % (20.0-45.0) Monocytes (%) (Auto) 7.8 % (1.0-10.0) Eosinophils (%) (Auto) 2.3 % (0.0-3.0) Basophils (%) (Auto) 0.7 % (0.0-2.0) Sodium Level 141 MMOL/L (136-145) Potassium Level 4.3 MMOL/L (3.5-5.1) Chloride Level 100 MMOL/L (98-107) Carbon Dioxide Level 39 MMOL/L (21-32) H Anion Gap 2 mmol/L (5-15) L Blood Urea Nitrogen 15 mg/dL (7-18) Creatinine 1.1 MG/DL (0.55-1.30) Estimat Glomerular Filtration Rate > 60 mL/min (>60) Glucose Level 107 MG/DL (74-106) H Calcium Level 8.7 MG/DL (8.5-10.1) Current Medications Medications (Trade) Dose Ordered Sig/Luis Route PRN Reason Start Time Stop Time Status Last Admin Dose Admin Acetaminophen (Tylenol) 650 mg Q4H PRN ORAL fever 12/15/18 14:54 01/14/19 14:53 Albuterol/ Ipratropium (Albuterol/ Ipratropium) 3 ml Q4H PRN HHN Shortness of Breath 01/04/19 20:30 01/09/19 20:29 01/06/19 21:35 Atorvastatin Calcium (Lipitor) 80 mg BEDTIME ORAL 12/15/18 21:00 01/14/19 20:59 01/08/19 22:06 Chlorhexidine Gluconate (Ruby-Hex 2%) 1 applic DAILY@2000 TOPIC 12/22/18 20:00 01/21/19 19:59 01/08/19 22:06 Clonidine HCl (Catapres Tab) 0.1 mg Q4H PRN ORAL For High Blood Pressure 12/15/18 14:56 01/14/19 14:55 Clopidogrel Bisulfate (Plavix) 75 mg DAILY ORAL 12/16/18 09:00 01/14/19 08:59 01/09/19 08:33 Dextrose (Dextrose 50%) 25 ml Q30M PRN IV Hypoglycemia 12/15/18 15:15 01/13/19 23:44 Dextrose (Dextrose 50%) 50 ml Q30M PRN IV Hypoglycemia 12/15/18 15:15 01/13/19 23:44 Duloxetine HCl (Cymbalta) 30 mg DAILY ORAL 12/16/18 09:00 01/14/19 08:59 01/09/19 08:32 Furosemide (Lasix) 20 mg Q6HR IV 12/22/18 00:00 01/21/19 00:00 01/09/19 06:31 Gabapentin (Neurontin) 600 mg THREE TIMES A DAY ORAL 12/15/18 18:00 01/14/19 08:59 01/09/19 08:33 Heparin Sodium (Porcine) (Heparin 5000 units/ml) 5,000 units EVERY 12 HOURS SUBQ 12/15/18 21:00 01/14/19 08:59 01/09/19 08:35 Hydromorphone HCl (Dilaudid) 4 mg Q4H PRN IVP For Pain 01/08/19 13:28 01/15/19 13:27 01/09/19 10:18 Levetiracetam (Keppra) 2,000 mg Q12HR ORAL 01/01/19 21:00 01/18/19 08:59 01/09/19 08:32 Lorazepam (Ativan 2mg/ml 1ml) 2 mg Q4H PRN IV For Anxiety 01/07/19 18:30 01/14/19 18:29 Losartan Potassium (Cozaar) 25 mg DAILY ORAL 12/29/18 13:45 01/28/19 13:44 01/08/19 09:27 Magnesium Oxide (Mag-Ox 400mg) 800 mg THREE TIMES A DAY ORAL 01/02/19 18:00 02/01/19 17:59 01/09/19 08:32 Methadone HCl (Methadone HCl) 15 mg Q8HR ORAL 01/06/19 14:00 01/13/19 13:59 01/09/19 06:31 Nitroglycerin (Ntg) 0.4 mg Q5M X 3 DOSES PRN SL Prn Chest Pain 12/15/18 14:45 01/13/19 23:44 01/02/19 11:59 Ondansetron HCl (Zofran) 4 mg Q6H PRN IVP Nausea & Vomiting 12/15/18 14:55 01/14/19 14:54 12/17/18 10:19 Polyethylene Glycol (Miralax) 17 gm HSPRN PRN ORAL Constipation 12/15/18 14:55 01/14/19 14:54 Pregabalin (Lyrica) 100 mg THREE TIMES A DAY ORAL 12/26/18 09:00 01/19/19 22:59 01/09/19 08:33 Promethazine HCl/ Codeine (Phenergan with Codeine) 5 ml Q4H PRN ORAL For Cough 12/28/18 12:00 01/27/19 11:59 01/01/19 01:34 Trazodone HCl (Desyrel) 100 mg BEDTIME ORAL 12/15/18 21:00 01/14/19 20:59 01/08/19 22:06 Harry Frank MD Jan 09, 2019 10:51
[2019-01-09] MEDS ORDERED: Tubing IV Blood Pump IV ONE (11:07)
[2019-01-09] MEDS ORDERED: NS 275ml ONE (11:07)
--- NOTE | 2019-01-09 11:40 | Nephrology Progress Note ---
Assessment/Plan Problem List: (1) Hyponatremia (2) Morbid obesity (3) COPD (chronic obstructive pulmonary disease) Plan Mag IV as needed Mag PO TID Low Na resolved cont per consultants Subjective ROS Limited/Unobtainable: No Constitutional: Reports: malaise Objective Objective Last 24 Hour Vital Signs Date Time Temp Pulse Resp B/P (MAP) Pulse Ox O2 Delivery O2 Flow Rate FiO2 01/09/19 09:00 Room Air 01/09/19 08:42 126/77 01/09/19 08:39 88 20 96 Room Air 21 01/09/19 08:00 97.9 88 18 126/77 (93) 96 01/09/19 04:00 98.2 100 20 101/51 (68) 98 01/09/19 00:00 97.6 90 18 131/64 (86) 94 01/08/19 21:00 Room Air 01/08/19 20:29 92 20 95 Room Air 21 01/08/19 20:00 97.8 95 18 120/68 (85) 95 01/08/19 18:23 97.5 01/08/19 16:00 97.5 90 18 124/76 (92) 94 01/08/19 12:00 98.5 98 16 130/70 (90) 100 Intake and Output 01/08/19 01/09/19 19:00 07:00 Intake Total 520 ml 1700 ml Output Total 800 ml Balance 520 ml 900 ml Intake Oral 520 ml 200 ml Other 1500 ml Output Urine Total 800 ml Stool Total 0 ml # Voids 5 # Bowel Movements 1 Laboratory Tests 01/09/19 04:58: White Blood Count 6.5, Red Blood Count 3.81L, Hemoglobin 11.5L, Hematocrit 34.6L , Mean Corpuscular Volume 91, Mean Corpuscular Hemoglobin 30.1, Mean Corpuscular Hemoglobin Concent 33.2, Red Cell Distribution Width 13.3, Platelet Count 260, Mean Platelet Volume 5.1L, Neutrophils (%) (Auto) 64.5, Lymphocytes ( %) (Auto) 24.8, Monocytes (%) (Auto) 7.8, Eosinophils (%) (Auto) 2.3, Basophils (%) (Auto) 0.7, Sodium Level 141, Potassium Level 4.3, Chloride Level 100, Carbon Dioxide Level 39H, Anion Gap 2L, Blood Urea Nitrogen 15, Creatinine 1.1, Estimat Glomerular Filtration Rate > 60, Glucose Level 107H, Calcium Level 8.7 Height (Feet): 5 Height (Inches): 10.00 Weight (Pounds): 495 General Appearance: no apparent distress Objective no change Devante Taylor MD Jan 09, 2019 11:40
[2019-01-09 12:00] VITALS: BP 114/73
--- NOTE | 2019-01-09 14:34 | Pulmonology Progress Note ---
Assessment/Plan Assessment/Plan ASSESSMENT Cellulitis bilateral lower extremity in setting of chronic venous stasis Peripheral vascular disease with chronic venous stasis ulceration Panniculitis COPD possible ADALBERTO Hx of tobacco abuse Seizure disorder , uncontrolled History of CVAs with left-sided weakness Morbid obesity DM Lumbar spondylosis Peripheral edema Major depressive disorder Hypertension Mild encephalopathy ( per EEG) PLAN OF CARE [facility] floor completed abx as per ID recs, cellulitis resolved venous duplex BLE negative wound care as per forestry technician recommendation CXR no acute CP pathology % pulmonary toilet PRN despite obesity denies hx of ADALBERTO. never been on BiPAP DVT prophylaxis however, anesthesia should be on alert for probable ADALBERTO counseled to continue abstinence from smoking on Lasix , monitor volumes and renal parameters, pro BNP down will decrease to q 12 hrs seen by plastic surgeon, will benefit from panniculectomy , planned fro January 25 cardio follows patient cleared for surgery pain management seizure precaution continue Keppra , Ativan as needed CT of the head unable to do ( since patient unable to fit to the machine and will need open CT/MRI), although low suspicion, likely seizure activity - as per neuro continue Plavix and statin (allergic to aspirin) EEG -with mild encephalopathy pain management supportive care bowel regimen HgbA1c 5.4 , BS stable psych meds as per psychiatrist recommendation dc plan to SNF case discussed and evaluated by supervising physician Subjective Allergies: Coded Allergies: ASPIRIN (Verified Allergy, Unknown, 07/14/18) KETOROLAC (Verified Allergy, Unknown, 07/14/18) PENICILLINS (Verified Allergy, Unknown, 12/23/18) tolerated Ancef on 08/2018 Subjective no fevers, no leuk pulse ox stable on RA Objective Last 24 Hour Vital Signs Date Time Temp Pulse Resp B/P (MAP) Pulse Ox O2 Delivery O2 Flow Rate FiO2 01/09/19 12:00 98.1 93 18 114/73 (87) 95 01/09/19 09:00 Room Air 01/09/19 08:42 126/77 01/09/19 08:39 88 20 96 Room Air 21 01/09/19 08:00 97.9 88 18 126/77 (93) 96 01/09/19 04:00 98.2 100 20 101/51 (68) 98 01/09/19 00:00 97.6 90 18 131/64 (86) 94 01/08/19 21:00 Room Air 01/08/19 20:29 92 20 95 Room Air 21 01/08/19 20:00 97.8 95 18 120/68 (85) 95 01/08/19 18:23 97.5 01/08/19 16:00 97.5 90 18 124/76 (92) 94 Intake and Output 01/08/19 01/09/19 19:00 07:00 Intake Total 520 ml 1700 ml Output Total 800 ml Balance 520 ml 900 ml Intake Oral 520 ml 200 ml Other 1500 ml Output Urine Total 800 ml Stool Total 0 ml # Voids 5 # Bowel Movements 1 Objective General Appearance: no acute distress, A/A/O x 3 morbidly obese male HEENT: normocephalic, atraumatic, anicteric, mucous membranes moist Respiratory/Chest: lungs clear with moderate air exchange Cardiovascular: normal rate with distant heart sounds Abdomen: soft, non tender , obese, panniculitis Extremities: edema +2 BLE , BLE with dressing C/D/i Skin: venous stasis, ulceration BLE Neurologic/Psychiatric: no motor/sensory deficits, alert, oriented x 3, responsive, normal mood/affect Musculoskeletal: normal muscle bulk Laboratory Tests 01/09/19 04:58: White Blood Count 6.5, Red Blood Count 3.81L, Hemoglobin 11.5L, Hematocrit 34.6L , Mean Corpuscular Volume 91, Mean Corpuscular Hemoglobin 30.1, Mean Corpuscular Hemoglobin Concent 33.2, Red Cell Distribution Width 13.3, Platelet Count 260, Mean Platelet Volume 5.1L, Neutrophils (%) (Auto) 64.5, Lymphocytes ( %) (Auto) 24.8, Monocytes (%) (Auto) 7.8, Eosinophils (%) (Auto) 2.3, Basophils (%) (Auto) 0.7, Sodium Level 141, Potassium Level 4.3, Chloride Level 100, Carbon Dioxide Level 39H, Anion Gap 2L, Blood Urea Nitrogen 15, Creatinine 1.1, Estimat Glomerular Filtration Rate > 60, Glucose Level 107H, Calcium Level 8.7 Current Medications Medications (Trade) Dose Ordered Sig/Luis Route PRN Reason Start Time Stop Time Status Last Admin Dose Admin Acetaminophen (Tylenol) 650 mg Q4H PRN ORAL fever 12/15/18 14:54 01/14/19 14:53 Albuterol/ Ipratropium (Albuterol/ Ipratropium) 3 ml Q4H PRN HHN Shortness of Breath 01/04/19 20:30 01/09/19 20:29 01/06/19 21:35 Atorvastatin Calcium (Lipitor) 80 mg BEDTIME ORAL 12/15/18 21:00 01/14/19 20:59 01/08/19 22:06 Chlorhexidine Gluconate (Ruby-Hex 2%) 1 applic DAILY@2000 TOPIC 12/22/18 20:00 01/21/19 19:59 01/08/19 22:06 Clonidine HCl (Catapres Tab) 0.1 mg Q4H PRN ORAL For High Blood Pressure 12/15/18 14:56 01/14/19 14:55 Clopidogrel Bisulfate (Plavix) 75 mg DAILY ORAL 12/16/18 09:00 01/14/19 08:59 01/09/19 08:33 Dextrose (Dextrose 50%) 25 ml Q30M PRN IV Hypoglycemia 12/15/18 15:15 01/13/19 23:44 Dextrose (Dextrose 50%) 50 ml Q30M PRN IV Hypoglycemia 12/15/18 15:15 01/13/19 23:44 Duloxetine HCl (Cymbalta) 30 mg DAILY ORAL 12/16/18 09:00 01/14/19 08:59 01/09/19 08:32 Furosemide (Lasix) 20 mg Q6HR IV 12/22/18 00:00 01/21/19 00:00 01/09/19 11:53 Gabapentin (Neurontin) 600 mg THREE TIMES A DAY ORAL 12/15/18 18:00 01/14/19 08:59 01/09/19 12:33 Heparin Sodium (Porcine) (Heparin 5000 units/ml) 5,000 units EVERY 12 HOURS SUBQ 12/15/18 21:00 01/14/19 08:59 01/09/19 08:35 Hydromorphone HCl (Dilaudid) 4 mg Q4H PRN IVP For Pain 01/08/19 13:28 01/15/19 13:27 01/09/19 14:22 Levetiracetam (Keppra) 2,000 mg Q12HR ORAL 01/01/19 21:00 01/18/19 08:59 01/09/19 08:32 Lorazepam (Ativan 2mg/ml 1ml) 2 mg Q4H PRN IV For Anxiety 01/07/19 18:30 01/14/19 18:29 Losartan Potassium (Cozaar) 25 mg DAILY ORAL 12/29/18 13:45 01/28/19 13:44 01/08/19 09:27 Magnesium Oxide (Mag-Ox 400mg) 800 mg THREE TIMES A DAY ORAL 01/02/19 18:00 02/01/19 17:59 01/09/19 12:33 Methadone HCl (Methadone HCl) 15 mg Q8HR ORAL 01/06/19 14:00 01/13/19 13:59 01/09/19 06:31 Nitroglycerin (Ntg) 0.4 mg Q5M X 3 DOSES PRN SL Prn Chest Pain 12/15/18 14:45 01/13/19 23:44 01/02/19 11:59 Ondansetron HCl (Zofran) 4 mg Q6H PRN IVP Nausea & Vomiting 12/15/18 14:55 01/14/19 14:54 12/17/18 10:19 Polyethylene Glycol (Miralax) 17 gm HSPRN PRN ORAL Constipation 12/15/18 14:55 01/14/19 14:54 Pregabalin (Lyrica) 100 mg THREE TIMES A DAY ORAL 12/26/18 09:00 01/19/19 22:59 01/09/19 12:36 Promethazine HCl/ Codeine (Phenergan with Codeine) 5 ml Q4H PRN ORAL For Cough 12/28/18 12:00 01/27/19 11:59 01/01/19 01:34 Trazodone HCl (Desyrel) 100 mg BEDTIME ORAL 12/15/18 21:00 01/14/19 20:59 01/08/19 22:06 Kiera Vivar NP Jan 09, 2019 14:34
[2019-01-09 16:00] VITALS: BP 139/63
[2019-01-09] MEDS ORDERED: Albuterol/Ipratropium 3ml neb HHN PRN (16:30)
--- NOTE | 2019-01-09 18:20 | NUR ---
P.T. NOTES S/P: APPROACHED PATIENT IN THE PM. PATIENT FOUND SITTING @ EOB W/RLE UP ON BED, AND LLE ON THE FLOOR. PATIENT REFUSED P.T. TX. NOTIFIED RN OF PATIENT'S STATUS. WILL F/U NEXT TX. TIME AND CONT WITH P.T. PLAN. RSABADO.
--- NOTE | 2019-01-09 19:12 | NUR ---
HAND-OFF: Report given to MICAELA Gaspar.
[2019-01-09] MEDS: Dyna-Hex 2% Top Sol 2oz TOPIC SCH (19:41)
[2019-01-09 20:00] VITALS: BP 127/62
--- NOTE | 2019-01-09 20:00 | NUR ---
NURSE NOTES: Patient sitting in bed, alert x 4 and responsive. Patient requested pain medication and I informed him of his next dose. Bedside rails are padded as a seizure precaution but patient takes them off. Bed is in lowest position and call light is within reach. Alarm on. Will continue to monitor patient.
[2019-01-09] MEDS: TraZODone 100mg tab ORAL SCH (20:32)
[2019-01-09] MEDS: Atorvastatin 80mg tab ORAL SCH (20:32)
--- NOTE | 2019-01-09 23:42 | Neurology Progress Note ---
Interim History Interim History ROS Limited/Unobtainable: No Complaints: Seizures/ Weakness Events: This visit was performed on January 09, [address] Amador Brewster Interim History No new events- awaiting placement Review of Systems All Systems: reviewed and negative except above Objective Physical Exam Last Vital Signs Date Time Temp Pulse Resp B/P (MAP) Pulse Ox O2 Delivery O2 Flow Rate FiO2 01/09/19 22:49 98.0 01/09/19 21:43 Room Air 01/09/19 20:00 91 18 127/62 (83) 97 01/09/19 08:39 21 01/06/19 21:48 2.0 Laboratory Tests Test 01/09/19 04:58 White Blood Count 6.5 K/UL (4.8-10.8) Red Blood Count 3.81 M/UL (4.70-6.10) L Hemoglobin 11.5 G/DL (14.2-18.0) L Hematocrit 34.6 % (42.0-52.0) L Mean Corpuscular Volume 91 FL (80-99) Mean Corpuscular Hemoglobin 30.1 PG (27.0-31.0) Mean Corpuscular Hemoglobin Concent 33.2 G/DL (32.0-36.0) Red Cell Distribution Width 13.3 % (11.6-14.8) Platelet Count 260 K/UL (150-450) Mean Platelet Volume 5.1 FL (6.5-10.1) L Neutrophils (%) (Auto) 64.5 % (45.0-75.0) Lymphocytes (%) (Auto) 24.8 % (20.0-45.0) Monocytes (%) (Auto) 7.8 % (1.0-10.0) Eosinophils (%) (Auto) 2.3 % (0.0-3.0) Basophils (%) (Auto) 0.7 % (0.0-2.0) Sodium Level 141 MMOL/L (136-145) Potassium Level 4.3 MMOL/L (3.5-5.1) Chloride Level 100 MMOL/L (98-107) Carbon Dioxide Level 39 MMOL/L (21-32) H Anion Gap 2 mmol/L (5-15) L Blood Urea Nitrogen 15 mg/dL (7-18) Creatinine 1.1 MG/DL (0.55-1.30) Estimat Glomerular Filtration Rate > 60 mL/min (>60) Glucose Level 107 MG/DL (74-106) H Calcium Level 8.7 MG/DL (8.5-10.1) General: well developed, other - Morbidly obese Head: normocophalic Neck: no rigidity EENT: benign Neurologic Exam Mental Status: awake, alert, oriented x4, normal cognition, good mathematical skills, normal recent memory, normal remote memory, preserved visuospatial function Speech: normal speech, no dysarthia Language: normal language, no aphasia Cranial Nerve II: fundus normal, visual bonilla, no papilledema Cranial Nerves III, IV, : PERRLA, EOMI, pupils Cranial Nerve V: normal facial sensations, temporales function normal, masseters function normal, pterygoids function normal Cranial Nerve VII: normal facial expressions, other Cranial Nerve VIII: normal hearing, no nystagmus Cranial Nerve IX: normal palate elevation, gag response Cranial Nerve X: no voice hoarseness Cranial Nerve XI: SCM symmetric, trapezii function normal Cranial Nerve XII: tongue midline, no tongue atrophy/fasciculations Motor System: normal muscle tone, no involuntary movement, no muscle wasting Sensory: normal pinprick, normal light touch, normal position sense, normal graphesthesia Coordination: normal heel to villarreal bilaterally, negative Romberg test Deep Tendon Reflexes: 1+ bicep (L), 1+ bicep (R), 1+ tricep (L), 1+ tricep (R) , 1+ brachioradialis (L), 1+ brachioradialis (R), 1+ knee (L), 1+ knee (R), 1+ ankle (L), 1+ ankle (R) Reflexes: flexor plantar (L), flexor plantar (R); extensor plantar (L), extensor plantar (R) Stance: other - Broad based Gait: stable Objective Left arm, predominantly hand weakness at this time. Alert and oriented Ambulatory with cellulitis persisting on BLE He does not have proximal left arm weakness at this time, mild facial weakness, tongue deviated on exam Impression/Recommendations Problems: (1) Seizures Assessment & Plan: Keppra 2000mg BID PO Maintain SBP<140 Q4 Hour Neuro Checks Ativan 2mg PRN for seizure activity CT Head w/o contrast when able to rule out CVA - also for consideration of MRI if CT negative. - low suspicion of CVA due to normotensive status without risk factors of elevated BP/ HgBA1c or thyroid dysfunction. Na 135-145 Continue pain management - Lyrica 100mg TID - Continue Gabapentin 600mg TID Intense PT recommended EEG negative for seizures, but consistent with mild encephalopathy. Same on Repeat Correct hypocalcemia (2) Morbid obesity (3) COPD (chronic obstructive pulmonary disease) (4) Uncontrolled seizures (5) Left-sided weakness Assessment & Plan: No seizure activity captured on EEG but mild to moderate degree of encephalopathy seen. Repeat EEG same as previous (6) Knee osteomyelits, right Status: stable, progressing Recommendations Q4 hour Neuro Obs - NO NIGHTTIME OBS if stable Prevent delirium Maintain regular sleep schedule and reduce nighttime activities such as observations (if unnecessary) Maintain Keppra dose at 2g BID, no additional meds at this time. Discharge planning - cannot go back to prior SNF Patient neurologically stable at this time for discharge Vicky Taylor N.P. Jan 09, 2019 23:42
[2019-01-10] VITALS: BP 139/65
[2019-01-10 04:00] VITALS: BP 143/63
--- NOTE | 2019-01-10 07:10 | NUR ---
HAND-OFF: Report given to MICAELA Hong.
--- NOTE | 2019-01-10 07:15 | NUR ---
NURSE NOTES: received report from MICAELA Gaspar. patient in bed, having breakfast. A&ox4, verbally responsive. no respiratory distress noted. no c/op pain at this time PICC line on rt upper arm 2lumens. intact. dressing clean and dry. flushed with NS. dressing on both lower legs d/t cellulitis. intact. clean and dry, bed in the lowest position. call light within reach. alarm on. will continue to monitor and provide plan of care.
[2019-01-10 08:00] VITALS: BP 110/62
[2019-01-10] MEDS: Losartan 25mg tab ORAL SCH (08:22)
[2019-01-10] MEDS: Magnesium Oxide 400mg tab ORAL SCH ×3 (08:23→18:30)
[2019-01-10] MEDS: DULoxetine 30mg cap ORAL SCH (08:23)
[2019-01-10] MEDS: Lyrica 50mg cap ORAL SCH ×3 (08:24→18:30)
[2019-01-10] MEDS: Heparin 5000 units/ml inj SUBQ SCH ×2 (08:25→21:48)
--- NOTE | 2019-01-10 09:00 | NUR ---
NURSE NOTES: patient got upset about change order of lasix to q12hrs from q6hrs. Even though RN explained the provider note,patient refused to take lasix 9am dose and asked the order back to q6hrs. notified ORDER TAKERS SUPERVISOR marcel mullen, she will come to see the patient later and talk to the patient.
--- NOTE | 2019-01-10 10:04 | General Progress Note ---
Assessment/Plan Problem List: (1) Abdominal pannus ICD Codes: E65 - Localized adiposity SNOMED: 2006418539433 (2) Peripheral edema ICD Codes: R60.9 - Edema, unspecified SNOMED: 669019093 (3) Abdominal wall cellulitis ICD Codes: L03.311 - Cellulitis of abdominal wall SNOMED: 10282962 (4) Leg pain ICD Codes: M79.606 - Pain in leg, unspecified SNOMED: 21126140 (5) COPD (chronic obstructive pulmonary disease) ICD Codes: J44.9 - Chronic obstructive pulmonary disease, unspecified SNOMED: 53673936 (6) Seizures ICD Codes: R56.9 - Unspecified convulsions SNOMED: 07981753 (7) Morbid obesity ICD Codes: E66.01 - Morbid (severe) obesity due to excess calories SNOMED: 081586542 (8) Cerebrovascular accident ICD Codes: I63.9 - Cerebral infarction, unspecified SNOMED: 654096659 (9) Left-sided weakness ICD Codes: R53.1 - Weakness SNOMED: 186596925 Status: stable, progressing Assessment/Plan: pt diet neuro f/u wound care abx pain control cbc bmp am dc to snf if clear Subjective Constitutional: Reports: weakness Allergies: Coded Allergies: ASPIRIN (Verified Allergy, Unknown, 07/14/18) KETOROLAC (Verified Allergy, Unknown, 07/14/18) PENICILLINS (Verified Allergy, Unknown, 12/23/18) tolerated Ancef on 08/2018 All Systems: reviewed and negative except above Subjective sleepy calm Objective Last 24 Hour Vital Signs Date Time Temp Pulse Resp B/P (MAP) Pulse Ox O2 Delivery O2 Flow Rate FiO2 01/10/19 09:00 Room Air 01/10/19 08:22 110/62 01/10/19 08:00 97.9 82 19 110/62 (78) 92 01/10/19 06:54 98.0 01/10/19 04:00 98.0 87 19 143/63 (89) 96 01/10/19 00:00 97.3 88 19 139/65 (89) 97 01/09/19 21:43 Room Air 01/09/19 20:00 98.0 91 18 127/62 (83) 97 01/09/19 16:00 97.9 89 18 139/63 (88) 96 01/09/19 12:00 98.1 93 18 114/73 (87) 95 Intake and Output 01/09/19 01/10/19 19:00 07:00 Intake Total 1420 ml 800 ml Balance 1420 ml 800 ml Intake Oral 1420 ml 800 ml # Voids 5 3 # Bowel Movements 1 Height (Feet): 5 Height (Inches): 10.00 Weight (Pounds): 495 General Appearance: lethargic EENT: normal ENT inspection Neck: normal alignment Cardiovascular: normal peripheral pulses, normal rate, regular rhythm Respiratory/Chest: chest wall non-tender, lungs clear, normal breath sounds Abdomen: normal bowel sounds, soft, distended Extremities: normal inspection Edema: 1+ Arm (L), 1+ Arm (R), 1+ Leg (L), 1+ Leg (R), 1+ Pedal (L), 1+ Pedal ( R), 1+ Generalized Edema: trace edema Neurologic: responsive, motor weakness Skin: normal pigmentation, warm/dry Objective bl' villarreal dressing c&Ernesto Garcia DO Jan 10, 2019 10:04
--- NOTE | 2019-01-10 11:13 | NUR ---
NURSE NOTES: seen by Kiera Vivar NP regarding Lasix order. Kiera explained the risks and benefits to the patient. the patient verbalized understood and agreed with the order of change.
--- NOTE | 2019-01-10 11:33 | Pulmonology Progress Note ---
Assessment/Plan Assessment/Plan ASSESSMENT Cellulitis bilateral lower extremity in setting of chronic venous stasis Peripheral vascular disease with chronic venous stasis ulceration Panniculitis COPD possible ADALBERTO Hx of tobacco abuse Seizure disorder , uncontrolled History of CVAs with left-sided weakness Morbid obesity DM Lumbar spondylosis Peripheral edema Major depressive disorder Hypertension Mild encephalopathy ( per EEG) PLAN OF CARE [facility] floor completed abx as per ID recs, cellulitis resolved venous duplex BLE negative wound care as per potato chip maker recommendation CXR no acute CP pathology % pulmonary toilet PRN despite obesity denies hx of ADALBERTO. never been on BiPAP DVT prophylaxis however, anesthesia should be on alert for probable ADALBERTO counseled to continue abstinence from smoking on Lasix , monitor volumes and renal parameters, pro BNP down Lasix decreased to q 12 hrs . seen by plastic surgeon, will benefit from panniculectomy , planned fro January 25 cardio follows patient cleared for surgery pain management seizure precaution continue Keppra , Ativan as needed CT of the head unable to do ( since patient unable to fit to the machine and will need open CT/MRI), although low suspicion, likely seizure activity - as per neuro continue Plavix and statin (allergic to aspirin) EEG -with mild encephalopathy pain management supportive care bowel regimen HgbA1c 5.4 , BS stable psych meds as per psychiatrist recommendation dc plan to SNF case discussed and evaluated by supervising physician Subjective Allergies: Coded Allergies: ASPIRIN (Verified Allergy, Unknown, 07/14/18) KETOROLAC (Verified Allergy, Unknown, 07/14/18) PENICILLINS (Verified Allergy, Unknown, 12/23/18) tolerated Ancef on 08/2018 Subjective no fevers, no leuk pulse ox stable on RA Objective Last 24 Hour Vital Signs Date Time Temp Pulse Resp B/P (MAP) Pulse Ox O2 Delivery O2 Flow Rate FiO2 01/10/19 09:00 Room Air 01/10/19 08:22 110/62 01/10/19 08:00 97.9 82 19 110/62 (78) 92 01/10/19 06:54 98.0 01/10/19 04:00 98.0 87 19 143/63 (89) 96 01/10/19 00:00 97.3 88 19 139/65 (89) 97 01/09/19 21:43 Room Air 01/09/19 20:00 98.0 91 18 127/62 (83) 97 01/09/19 16:00 97.9 89 18 139/63 (88) 96 01/09/19 12:00 98.1 93 18 114/73 (87) 95 Intake and Output 01/09/19 01/10/19 19:00 07:00 Intake Total 1420 ml 800 ml Balance 1420 ml 800 ml Intake Oral 1420 ml 800 ml # Voids 5 3 # Bowel Movements 1 Objective General Appearance: no acute distress, A/A/O x 3 morbidly obese male HEENT: normocephalic, atraumatic, anicteric, mucous membranes moist Respiratory/Chest: lungs clear with moderate air exchange Cardiovascular: normal rate with distant heart sounds Abdomen: soft, non tender , obese, panniculitis Extremities: edema +2 BLE , BLE with dressing C/D/i Skin: venous stasis, ulceration BLE Neurologic/Psychiatric: no motor/sensory deficits, alert, oriented x 3, responsive, normal mood/affect Musculoskeletal: normal muscle bulk Current Medications Medications (Trade) Dose Ordered Sig/Luis Route PRN Reason Start Time Stop Time Status Last Admin Dose Admin Acetaminophen (Tylenol) 650 mg Q4H PRN ORAL fever 12/15/18 14:54 01/14/19 14:53 Albuterol/ Ipratropium (Albuterol/ Ipratropium) 3 ml Q4H PRN HHN Shortness of Breath 01/09/19 16:30 01/14/19 16:29 Atorvastatin Calcium (Lipitor) 80 mg BEDTIME ORAL 12/15/18 21:00 01/14/19 20:59 01/09/19 20:32 Chlorhexidine Gluconate (Ruby-Hex 2%) 1 applic DAILY@2000 TOPIC 12/22/18 20:00 01/21/19 19:59 01/09/19 19:41 Clonidine HCl (Catapres Tab) 0.1 mg Q4H PRN ORAL For High Blood Pressure 12/15/18 14:56 01/14/19 14:55 Clopidogrel Bisulfate (Plavix) 75 mg DAILY ORAL 12/16/18 09:00 01/14/19 08:59 01/10/19 08:22 Dextrose (Dextrose 50%) 25 ml Q30M PRN IV Hypoglycemia 12/15/18 15:15 01/13/19 23:44 Dextrose (Dextrose 50%) 50 ml Q30M PRN IV Hypoglycemia 12/15/18 15:15 01/13/19 23:44 Duloxetine HCl (Cymbalta) 30 mg DAILY ORAL 12/16/18 09:00 01/14/19 08:59 01/10/19 08:23 Furosemide (Lasix) 20 mg Q12HR IV 01/09/19 21:00 01/21/19 00:00 01/09/19 20:33 Gabapentin (Neurontin) 600 mg THREE TIMES A DAY ORAL 12/15/18 18:00 01/14/19 08:59 01/10/19 08:23 Heparin Sodium (Porcine) (Heparin 5000 units/ml) 5,000 units EVERY 12 HOURS SUBQ 12/15/18 21:00 01/14/19 08:59 01/10/19 08:25 Hydromorphone HCl (Dilaudid) 4 mg Q4H PRN IVP For Pain 01/08/19 13:28 01/15/19 13:27 01/10/19 10:25 Levetiracetam (Keppra) 2,000 mg Q12HR ORAL 01/01/19 21:00 01/18/19 08:59 01/10/19 08:23 Lorazepam (Ativan 2mg/ml 1ml) 2 mg Q4H PRN IV For Anxiety 01/07/19 18:30 01/14/19 18:29 Losartan Potassium (Cozaar) 25 mg DAILY ORAL 12/29/18 13:45 01/28/19 13:44 01/08/19 09:27 Magnesium Oxide (Mag-Ox 400mg) 800 mg THREE TIMES A DAY ORAL 01/02/19 18:00 02/01/19 17:59 01/10/19 08:23 Methadone HCl (Methadone HCl) 15 mg Q8HR ORAL 01/06/19 14:00 01/13/19 13:59 01/10/19 05:32 Nitroglycerin (Ntg) 0.4 mg Q5M X 3 DOSES PRN SL Prn Chest Pain 12/15/18 14:45 01/13/19 23:44 01/02/19 11:59 Ondansetron HCl (Zofran) 4 mg Q6H PRN IVP Nausea & Vomiting 12/15/18 14:55 01/14/19 14:54 12/17/18 10:19 Polyethylene Glycol (Miralax) 17 gm HSPRN PRN ORAL Constipation 12/15/18 14:55 01/14/19 14:54 Pregabalin (Lyrica) 100 mg THREE TIMES A DAY ORAL 12/26/18 09:00 01/19/19 22:59 01/10/19 08:24 Promethazine HCl/ Codeine (Phenergan with Codeine) 5 ml Q4H PRN ORAL For Cough 12/28/18 12:00 01/27/19 11:59 01/01/19 01:34 Trazodone HCl (Desyrel) 100 mg BEDTIME ORAL 12/15/18 21:00 01/14/19 20:59 01/09/19 20:32 Kiera Vivar NP Jan 10, 2019 11:33
[2019-01-10 12:00] VITALS: BP 130/65
--- NOTE | 2019-01-10 13:08 | Nephrology Progress Note ---
Assessment/Plan Problem List: (1) Hyponatremia (2) Morbid obesity (3) COPD (chronic obstructive pulmonary disease) Plan Mag IV as needed Mag PO TID Low Na resolved cont per consultants Subjective ROS Limited/Unobtainable: No Constitutional: Reports: malaise Objective Objective Last 24 Hour Vital Signs Date Time Temp Pulse Resp B/P (MAP) Pulse Ox O2 Delivery O2 Flow Rate FiO2 01/10/19 12:00 98.1 96 18 130/65 (86) 91 01/10/19 09:00 Room Air 01/10/19 08:22 110/62 01/10/19 08:00 97.9 82 19 110/62 (78) 92 01/10/19 06:54 98.0 01/10/19 04:00 98.0 87 19 143/63 (89) 96 01/10/19 00:00 97.3 88 19 139/65 (89) 97 01/09/19 21:43 Room Air 01/09/19 20:00 98.0 91 18 127/62 (83) 97 01/09/19 16:00 97.9 89 18 139/63 (88) 96 Intake and Output 01/09/19 01/10/19 19:00 07:00 Intake Total 1420 ml 800 ml Balance 1420 ml 800 ml Intake Oral 1420 ml 800 ml # Voids 5 3 # Bowel Movements 1 Height (Feet): 5 Height (Inches): 10.00 Weight (Pounds): 495 General Appearance: no apparent distress Cardiovascular: normal rate Respiratory/Chest: decreased breath sounds Abdomen: distended Objective no change Devante Taylor MD Jan 10, 2019 13:08
[2019-01-10 16:00] VITALS: BP 131/82
--- NOTE | 2019-01-10 19:27 | NUR ---
HAND-OFF: Report given to MICAELA Munoz.
--- NOTE | 2019-01-10 19:28 | NUR ---
NURSE NOTES: received report from MICAELA Hong. patient in bed, sitting upright. A&ox4, depressed affect. verbally responsive. no respiratory distress noted. no c/op pain at this time PICC line on rt upper arm 2lumens. intact. dressing clean and dry. flushed with NS. dressing on both lower legs d/t cellulitis. intact. clean and dry, bed in the lowest position. call light within reach. alarm on. will continue to monitor and provide plan of care.
--- NOTE | 2019-01-10 19:38 | NUR ---
CASE MANAGEMENT: REVIEW 01/09/2019 SI:PANNICULITIS . CHRONIC VENOUS INSUFFICIENCY T 98.1 HR 93 RR 18 B/P 114/73 SATS 95% ON RA CO2 39 GLU 107 IS:HEPARIN SUBQ GABAPENTIN 600mg COZAAR 25mG MAGNESIUM OXIDE 800mg PLAVIX 75mg CYMBALTA 30mg LYRICA 100mg DILAUDID 4mG KEPPRA 2000mg LASIX 20mg IV MED/SURG STATUS 01/10/2019 SI:PANNICULITIS . CHRONIC VENOUS INSUFFICIENCY T 97.9 HR 82 RR 19 B/P 110/62 SATS 92% ON RA NO LABS TODAY IS:HEPARIN SUBQ GABAPENTIN 600mg COZAAR 25mG MAGNESIUM OXIDE 800mg PLAVIX 75mg CYMBALTA 30mg LYRICA 100mg DILAUDID 4mG KEPPRA 2000mg LASIX 20mg IV MED/SURG STATUS
[2019-01-10 20:00] VITALS: BP 106/60
--- NOTE | 2019-01-10 21:40 | NUR ---
NURSE NOTES: I phyllis up lasix but pt refused after drawing it up. . will waste in pyxis.
[2019-01-10] MEDS: Atorvastatin 80mg tab ORAL SCH (21:46)
[2019-01-10] MEDS: Dyna-Hex 2% Top Sol 2oz TOPIC SCH (21:46)
[2019-01-10] MEDS: TraZODone 100mg tab ORAL SCH (21:46)
--- NOTE | 2019-01-10 23:56 | Neurology Progress Note ---
Interim History Interim History ROS Limited/Unobtainable: No Complaints: Seizures/ Weakness Events: This visit was performed on January 10, [address] Amador Brewster Interim History No interval events- still awaiting DC Objective Physical Exam Last Vital Signs Date Time Temp Pulse Resp B/P (MAP) Pulse Ox O2 Delivery O2 Flow Rate FiO2 01/10/19 23:03 97.3 01/10/19 21:00 Room Air 01/10/19 20:27 84 20 95 21 01/10/19 20:00 106/60 (75) 01/06/19 21:48 2.0 General: well developed, other - Morbidly obese Head: normocophalic Neck: no rigidity EENT: benign Neurologic Exam Mental Status: awake, alert, oriented x4, normal cognition, good mathematical skills, normal recent memory, normal remote memory, preserved visuospatial function Speech: normal speech, no dysarthia Language: normal language, no aphasia Cranial Nerve II: fundus normal, visual bonilla, no papilledema Cranial Nerves III, IV, : PERRLA, EOMI, pupils Cranial Nerve V: normal facial sensations, temporales function normal, masseters function normal, pterygoids function normal Cranial Nerve VII: normal facial expressions, other Cranial Nerve VIII: normal hearing, no nystagmus Cranial Nerve IX: normal palate elevation, gag response Cranial Nerve X: no voice hoarseness Cranial Nerve XI: SCM symmetric, trapezii function normal Cranial Nerve XII: tongue midline, no tongue atrophy/fasciculations Motor System: normal muscle tone, no involuntary movement, no muscle wasting Sensory: normal pinprick, normal light touch, normal position sense, normal graphesthesia Coordination: normal heel to villarreal bilaterally, negative Romberg test Deep Tendon Reflexes: 1+ bicep (L), 1+ bicep (R), 1+ tricep (L), 1+ tricep (R) , 1+ brachioradialis (L), 1+ brachioradialis (R), 1+ knee (L), 1+ knee (R), 1+ ankle (L), 1+ ankle (R) Reflexes: flexor plantar (L), flexor plantar (R); extensor plantar (L), extensor plantar (R) Stance: other - Broad based Gait: stable Objective Left arm, predominantly hand weakness at this time. Alert and oriented Ambulatory with cellulitis persisting on BLE He does not have proximal left arm weakness at this time, mild facial weakness, tongue deviated on exam Impression/Recommendations Problems: (1) Seizures Assessment & Plan: Keppra 2000mg BID PO Maintain SBP<140 Q4 Hour Neuro Checks Ativan 2mg PRN for seizure activity CT Head w/o contrast when able to rule out CVA - also for consideration of MRI if CT negative. - low suspicion of CVA due to normotensive status without risk factors of elevated BP/ HgBA1c or thyroid dysfunction. Na 135-145 Continue pain management - Lyrica 100mg TID - Continue Gabapentin 600mg TID Intense PT recommended EEG negative for seizures, but consistent with mild encephalopathy. Same on Repeat Correct hypocalcemia (2) Morbid obesity (3) COPD (chronic obstructive pulmonary disease) (4) Uncontrolled seizures (5) Left-sided weakness Assessment & Plan: No seizure activity captured on EEG but mild to moderate degree of encephalopathy seen. Repeat EEG same as previous (6) Knee osteomyelits, right Status: stable, progressing, tolerating diet, ambulating well Recommendations Q4 hour Neuro Obs - NO NIGHTTIME OBS if stable Prevent delirium Maintain regular sleep schedule and reduce nighttime activities such as observations (if unnecessary) Maintain Keppra dose at 2g BID, no additional meds at this time. Discharge planning- denied [facility]. Patient neurologically stable at this time for discharge Vicky Taylor N.P. Jan 10, 2019 23:56
[2019-01-11] VITALS: BP 139/77
[2019-01-11 04:00] VITALS: BP 120/55
[2019-01-11 06:48] LABS: ANION GAP -1 mmol/L (5-15); BLOOD UREA NITROGEN 14 mg/dL (7-18); CALCIUM 8.5 MG/DL (8.5-10.1); CARBON DIOXIDE 37 MMOL/L (21-32); CHLORIDE 103 MMOL/L (98-107); POTASSIUM 4.2 MMOL/L (3.5-5.1); SODIUM 139 MMOL/L (136-145)
--- NOTE | 2019-01-11 07:08 | NUR ---
HAND-OFF: Report given to MICAELA Hong.
[2019-01-11 07:12] LABS: BASOPHILS % (AUTO) 0.7 % (0.0-2.0); EOSINOPHILS % (AUTO) 2.7 % (0.0-3.0); HEMATOCRIT 31.8 % (42.0-52.0); HEMOGLOBIN 10.9 G/DL (14.2-18.0); LYMPHOCYTES % (AUTO) 28.9 % (20.0-45.0); MEAN CORPUSCULAR VOLUME 89 FL (80-99); MONOCYTES % (AUTO) 8.9 % (1.0-10.0); NEUTROPHILS % (AUTO) 58.7 % (45.0-75.0); PLATELET COUNT 246 K/UL (150-450); RED BLOOD COUNT 3.57 M/UL (4.70-6.10); RED CELL DISTRIBUTION WIDTH 13.2 % (11.6-14.8); WHITE BLOOD COUNT 6.8 K/UL (4.8-10.8)
--- NOTE | 2019-01-11 07:41 | NUR ---
NURSE NOTES: received report from MICAELA Munoz. patient in bed. A&Ox4, verbally responsive. no respiratory distress noted. no c/o pain at this time. PICC line on left upper arm with 2lumens intact. dressing clean and dry. no s/sx of infection. Cellulitis both lower legs with dressing intact. bed in the lowest position. call light within reach. alarm on. will continue to provide plan of care.
[2019-01-11 08:00] VITALS: BP 134/71
[2019-01-11] MEDS: Magnesium Oxide 400mg tab ORAL SCH ×3 (09:05→18:33)
[2019-01-11] MEDS: DULoxetine 30mg cap ORAL SCH (09:05)
[2019-01-11] MEDS: Losartan 25mg tab ORAL SCH (09:05)
[2019-01-11] MEDS: Lyrica 50mg cap ORAL SCH ×3 (09:06→18:34)
[2019-01-11] MEDS: Heparin 5000 units/ml inj SUBQ SCH ×2 (09:09→20:08)
--- NOTE | 2019-01-11 11:30 | Progress Note ---
DATE: 01/11/2019 SUBJECTIVE: This is a 53-year-old male patient, rule out CVA. This patient continues to have some confusion, disorganized thought process, and mood lability, still agitated and irritable. Because of his mood lability, his attending has requested daily psychiatric consultation and also because of his depression, still irritable on approach, and has a lot of anxiety because of his medical illness. MENTAL STATUS EXAMINATION: This is a 53-year-old male. Appearance is disheveled. Attitude, irritable and agitated. Affect, guarded and restricted. Intellect poor. Mood, depressed and anxious. Motor activity, psychomotor agitation. Attention span is poor. Orientation x2. Speech is pressured. Thought process, disorganized and illogical. Insight and judgment is poor. DIAGNOSIS: Status post cerebrovascular accident. PLAN: Plan for this patient is to treat with his medication regimen consisting of Cymbalta 30 mg a day, Neurontin 600 mg three times a day, and trazodone 100 at bedtime. Provide him with 20 minutes of cognitive behavioral therapy to help him identify his automatic negative thoughts, help him convert those negative thoughts to more positive thoughts to reduce depression, anxiety, and suicidality. Chart reviewed. Discussed with staff. Seen and assessed in his room. Laney Mcghee M.D. DR: GUTIERREZ JOB#: [id number] CC:
--- NOTE | 2019-01-11 11:58 | Nephrology Progress Note ---
Assessment/Plan Problem List: (1) Hyponatremia (2) Morbid obesity (3) COPD (chronic obstructive pulmonary disease) Plan Mag IV as needed Mag PO TID Low Na resolved cont per consultants Subjective ROS Limited/Unobtainable: No Constitutional: Reports: malaise Objective Objective Last 24 Hour Vital Signs Date Time Temp Pulse Resp B/P (MAP) Pulse Ox O2 Delivery O2 Flow Rate FiO2 01/11/19 09:05 134/71 01/11/19 09:00 Room Air 01/11/19 08:00 97.9 70 18 134/71 (92) 94 01/11/19 06:58 97.9 01/11/19 04:00 97.9 84 20 120/55 (76) 93 01/11/19 00:00 98.1 93 21 139/77 (97) 92 01/10/19 21:00 Room Air 01/10/19 20:27 84 20 95 Room Air 21 01/10/19 20:00 97.3 86 20 106/60 (75) 96 01/10/19 16:00 98.6 86 18 131/82 (98) 94 01/10/19 12:00 98.1 96 18 130/65 (86) 91 Intake and Output 01/10/19 01/11/19 19:00 07:00 Intake Total 1000 ml Balance 1000 ml Other 1000 ml # Voids 5 Laboratory Tests 01/11/19 05:30: White Blood Count 6.8, Red Blood Count 3.57L, Hemoglobin 10.9L, Hematocrit 31.8L , Mean Corpuscular Volume 89, Mean Corpuscular Hemoglobin 30.4, Mean Corpuscular Hemoglobin Concent 34.2, Red Cell Distribution Width 13.2, Platelet Count 246, Mean Platelet Volume 4.8L, Neutrophils (%) (Auto) 58.7, Lymphocytes ( %) (Auto) 28.9, Monocytes (%) (Auto) 8.9, Eosinophils (%) (Auto) 2.7, Basophils (%) (Auto) 0.7, Sodium Level 139, Potassium Level 4.2, Chloride Level 103, Carbon Dioxide Level 37H, Anion Gap -1L, Blood Urea Nitrogen 14, Creatinine 1.0 , Estimat Glomerular Filtration Rate > 60, Glucose Level 67L, Calcium Level 8.5 Height (Feet): 5 Height (Inches): 10.00 Weight (Pounds): 495 General Appearance: no apparent distress Objective no change Devante Taylor MD Jan 11, 2019 11:58
[2019-01-11 12:00] VITALS: BP 136/85
--- NOTE | 2019-01-11 12:08 | General Progress Note ---
Assessment/Plan Problem List: (1) Abdominal pannus ICD Codes: E65 - Localized adiposity SNOMED: 3342367575750 (2) Peripheral edema ICD Codes: R60.9 - Edema, unspecified SNOMED: 829162351 (3) Abdominal wall cellulitis ICD Codes: L03.311 - Cellulitis of abdominal wall SNOMED: 59044869 (4) Leg pain ICD Codes: M79.606 - Pain in leg, unspecified SNOMED: 27605080 (5) COPD (chronic obstructive pulmonary disease) ICD Codes: J44.9 - Chronic obstructive pulmonary disease, unspecified SNOMED: 28759732 (6) Seizures ICD Codes: R56.9 - Unspecified convulsions SNOMED: 20507796 (7) Morbid obesity ICD Codes: E66.01 - Morbid (severe) obesity due to excess calories SNOMED: 895647643 (8) Cerebrovascular accident ICD Codes: I63.9 - Cerebral infarction, unspecified SNOMED: 778314907 (9) Left-sided weakness ICD Codes: R53.1 - Weakness SNOMED: 250834194 Status: stable, progressing Assessment/Plan: pt diet neuro f/u wound care abx pain control cbc bmp am dc to snf if clear Subjective Constitutional: Reports: weakness Allergies: Coded Allergies: ASPIRIN (Verified Allergy, Unknown, 07/14/18) KETOROLAC (Verified Allergy, Unknown, 07/14/18) PENICILLINS (Verified Allergy, Unknown, 12/23/18) tolerated Ancef on 08/2018 All Systems: reviewed and negative except above Subjective sleepy calm Objective Last 24 Hour Vital Signs Date Time Temp Pulse Resp B/P (MAP) Pulse Ox O2 Delivery O2 Flow Rate FiO2 01/11/19 09:05 134/71 01/11/19 09:00 Room Air 01/11/19 08:00 97.9 70 18 134/71 (92) 94 01/11/19 06:58 97.9 01/11/19 04:00 97.9 84 20 120/55 (76) 93 01/11/19 00:00 98.1 93 21 139/77 (97) 92 01/10/19 21:00 Room Air 01/10/19 20:27 84 20 95 Room Air 21 01/10/19 20:00 97.3 86 20 106/60 (75) 96 01/10/19 16:00 98.6 86 18 131/82 (98) 94 Intake and Output 01/10/19 01/11/19 19:00 07:00 Intake Total 1000 ml Balance 1000 ml Other 1000 ml # Voids 5 Laboratory Tests 01/11/19 05:30: White Blood Count 6.8, Red Blood Count 3.57L, Hemoglobin 10.9L, Hematocrit 31.8L , Mean Corpuscular Volume 89, Mean Corpuscular Hemoglobin 30.4, Mean Corpuscular Hemoglobin Concent 34.2, Red Cell Distribution Width 13.2, Platelet Count 246, Mean Platelet Volume 4.8L, Neutrophils (%) (Auto) 58.7, Lymphocytes ( %) (Auto) 28.9, Monocytes (%) (Auto) 8.9, Eosinophils (%) (Auto) 2.7, Basophils (%) (Auto) 0.7, Sodium Level 139, Potassium Level 4.2, Chloride Level 103, Carbon Dioxide Level 37H, Anion Gap -1L, Blood Urea Nitrogen 14, Creatinine 1.0 , Estimat Glomerular Filtration Rate > 60, Glucose Level 67L, Calcium Level 8.5 Height (Feet): 5 Height (Inches): 10.00 Weight (Pounds): 495 General Appearance: lethargic EENT: normal ENT inspection Neck: normal alignment Cardiovascular: normal peripheral pulses, normal rate, regular rhythm Respiratory/Chest: chest wall non-tender, lungs clear, normal breath sounds Abdomen: normal bowel sounds, soft, distended Extremities: normal inspection Edema: 1+ Arm (L), 1+ Arm (R), 1+ Leg (L), 1+ Leg (R), 1+ Pedal (L), 1+ Pedal ( R), 1+ Generalized Edema: trace edema Neurologic: responsive, motor weakness Skin: normal pigmentation, warm/dry Objective bl' villarreal dressing c&d Ernesto Nicole DO Jan 11, 2019 12:08
--- NOTE | 2019-01-11 13:36 | NUR ---
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 CHRONIC VENOUS INSUFFICIENCY VS: BP 120/55, P 96, T 97.9, RR 20, SpO2 93 RBC 3.57, H&H 10.9/31.8 IS:METHADONE 15mg GABAPENTIN 600mg LYRICA 100mg MAGNESIUM OXIDE 800mg DILAUDID 4mg IVP HEPARIN SUBQ PLAVIX 75mg CYMBALTA 30mg COZAAR 25mg KEPPRA 2,000mg LASIX 20mg MED/SURG STATUS
--- NOTE | 2019-01-11 13:45 | Infectious Diseases Prog Note ---
Assessment/Plan Assessment/Plan B/l Leg cellulitis and panniculitis - in the setting of chronic venous stasis Active infectious cellulitis essentially resolved. Now he has chronic venous stasis and neuropathic pain with poorly healing wounds. Alot off this is due to the severe swelling in his feet but also he is poorly compliant with wound care instructions. L side weakness/spasticity- thought be 2ry to seizures- r/O CVA- no active infectious process at present (pt afebrile- doubt meningitis at this moment) Afebrile No leukocytosis -CXR: No acute findings CVA HTN bipolar disorder w/ psychotic features tobacco abuse anxiety disorder chronic pain CHF seizure disorder COPD morbid obesity Dm2 HTN SNF resident Plan: - Continue to Monitor off abx - Needs wound care for healing. - Patient pooly compliant with leg elevation and wound dressing instruction - 01/07/19 SP IV Dapto d# 14 - 01/06/19 S/P Levofloxacin #7 - 12/25 sp Bactrim #4/14 and add IV Ancef #3/14 for cellulitis - Patient pooly compliant with leg elevation and wound dressing instruction - Monitor CBC/CMP, temperatures - aspiration precautions - wound care per hospital protocol Subjective Allergies: Coded Allergies: ASPIRIN (Verified Allergy, Unknown, 07/14/18) KETOROLAC (Verified Allergy, Unknown, 07/14/18) PENICILLINS (Verified Allergy, Unknown, 12/23/18) tolerated Ancef on 08/2018 Subjective Afebrile No leukocytosis Objective Vital Signs Last 24 Hour Vital Signs Date Time Temp Pulse Resp B/P (MAP) Pulse Ox O2 Delivery O2 Flow Rate FiO2 01/11/19 12:00 98.1 96 18 136/85 (102) 91 01/11/19 09:05 134/71 01/11/19 09:00 Room Air 01/11/19 08:00 97.9 70 18 134/71 (92) 94 01/11/19 06:58 97.9 01/11/19 04:00 97.9 84 20 120/55 (76) 93 01/11/19 00:00 98.1 93 21 139/77 (97) 92 01/10/19 21:00 Room Air 01/10/19 20:27 84 20 95 Room Air 21 01/10/19 20:00 97.3 86 20 106/60 (75) 96 01/10/19 16:00 98.6 86 18 131/82 (98) 94 Height (Feet): 5 Height (Inches): 10.00 Weight (Pounds): 495 Objective GEN: NAD HEENT: NCAT, MMM Respiratory/Chest: CTAB, No W Cardiovascular: RRR, S1, S2 Abdomen: Soft, ND Ext. LE with severe edema - Legs bandaged Laboratory Tests Test 01/11/19 05:30 White Blood Count 6.8 K/UL (4.8-10.8) Red Blood Count 3.57 M/UL (4.70-6.10) L Hemoglobin 10.9 G/DL (14.2-18.0) L Hematocrit 31.8 % (42.0-52.0) L Mean Corpuscular Volume 89 FL (80-99) Mean Corpuscular Hemoglobin 30.4 PG (27.0-31.0) Mean Corpuscular Hemoglobin Concent 34.2 G/DL (32.0-36.0) Red Cell Distribution Width 13.2 % (11.6-14.8) Platelet Count 246 K/UL (150-450) Mean Platelet Volume 4.8 FL (6.5-10.1) L Neutrophils (%) (Auto) 58.7 % (45.0-75.0) Lymphocytes (%) (Auto) 28.9 % (20.0-45.0) Monocytes (%) (Auto) 8.9 % (1.0-10.0) Eosinophils (%) (Auto) 2.7 % (0.0-3.0) Basophils (%) (Auto) 0.7 % (0.0-2.0) Sodium Level 139 MMOL/L (136-145) Potassium Level 4.2 MMOL/L (3.5-5.1) Chloride Level 103 MMOL/L (98-107) Carbon Dioxide Level 37 MMOL/L (21-32) H Anion Gap -1 mmol/L (5-15) L Blood Urea Nitrogen 14 mg/dL (7-18) Creatinine 1.0 MG/DL (0.55-1.30) Estimat Glomerular Filtration Rate > 60 mL/min (>60) Glucose Level 67 MG/DL (74-106) L Calcium Level 8.5 MG/DL (8.5-10.1) Current Medications Medications (Trade) Dose Ordered Sig/Luis Route PRN Reason Start Time Stop Time Status Last Admin Dose Admin Acetaminophen (Tylenol) 650 mg Q4H PRN ORAL fever 12/15/18 14:54 01/14/19 14:53 Albuterol/ Ipratropium (Albuterol/ Ipratropium) 3 ml Q4H PRN HHN Shortness of Breath 01/09/19 16:30 01/14/19 16:29 Atorvastatin Calcium (Lipitor) 80 mg BEDTIME ORAL 12/15/18 21:00 01/14/19 20:59 01/10/19 21:46 Chlorhexidine Gluconate (Ruby-Hex 2%) 1 applic DAILY@2000 TOPIC 12/22/18 20:00 01/21/19 19:59 01/10/19 21:46 Clonidine HCl (Catapres Tab) 0.1 mg Q4H PRN ORAL For High Blood Pressure 12/15/18 14:56 01/14/19 14:55 Clopidogrel Bisulfate (Plavix) 75 mg DAILY ORAL 12/16/18 09:00 01/14/19 08:59 01/11/19 09:05 Dextrose (Dextrose 50%) 25 ml Q30M PRN IV Hypoglycemia 12/15/18 15:15 01/13/19 23:44 Dextrose (Dextrose 50%) 50 ml Q30M PRN IV Hypoglycemia 12/15/18 15:15 01/13/19 23:44 Duloxetine HCl (Cymbalta) 30 mg DAILY ORAL 12/16/18 09:00 01/14/19 08:59 01/11/19 09:05 Furosemide (Lasix) 20 mg Q12HR IV 01/09/19 21:00 01/21/19 00:00 01/11/19 09:04 Gabapentin (Neurontin) 600 mg THREE TIMES A DAY ORAL 12/15/18 18:00 01/14/19 08:59 01/11/19 13:28 Heparin Sodium (Porcine) (Heparin 5000 units/ml) 5,000 units EVERY 12 HOURS SUBQ 12/15/18 21:00 01/14/19 08:59 01/11/19 09:09 Hydromorphone HCl (Dilaudid) 4 mg Q4H PRN IVP For Pain 01/08/19 13:28 01/15/19 13:27 01/11/19 10:35 Levetiracetam (Keppra) 2,000 mg Q12HR ORAL 01/01/19 21:00 01/18/19 08:59 01/11/19 09:05 Lorazepam (Ativan 2mg/ml 1ml) 2 mg Q4H PRN IV For Anxiety 01/07/19 18:30 01/14/19 18:29 Losartan Potassium (Cozaar) 25 mg DAILY ORAL 12/29/18 13:45 01/28/19 13:44 01/11/19 09:05 Magnesium Oxide (Mag-Ox 400mg) 800 mg THREE TIMES A DAY ORAL 01/02/19 18:00 02/01/19 17:59 01/11/19 13:28 Methadone HCl (Methadone HCl) 15 mg Q8HR ORAL 01/06/19 14:00 01/13/19 13:59 01/11/19 13:29 Nitroglycerin (Ntg) 0.4 mg Q5M X 3 DOSES PRN SL Prn Chest Pain 12/15/18 14:45 01/13/19 23:44 01/02/19 11:59 Ondansetron HCl (Zofran) 4 mg Q6H PRN IVP Nausea & Vomiting 12/15/18 14:55 01/14/19 14:54 12/17/18 10:19 Polyethylene Glycol (Miralax) 17 gm HSPRN PRN ORAL Constipation 12/15/18 14:55 01/14/19 14:54 Pregabalin (Lyrica) 100 mg THREE TIMES A DAY ORAL 12/26/18 09:00 01/19/19 22:59 01/11/19 13:28 Promethazine HCl/ Codeine (Phenergan with Codeine) 5 ml Q4H PRN ORAL For Cough 12/28/18 12:00 01/27/19 11:59 01/01/19 01:34 Trazodone HCl (Desyrel) 100 mg BEDTIME ORAL 12/15/18 21:00 01/14/19 20:59 01/10/19 21:46 Elliot Chauhan MD Jan 11, 2019 13:45
--- NOTE | 2019-01-11 14:04 | NUR ---
RADIOLOGY DEPT., ATTEMPT TO IMAGE LEFT KNEE. LIMITED EXAM DUE TO PATIENT'S INABLITY TO PERFORMED CERTAIN POSITIONS FOR A CORRECT AND OPTIMAL EXAM.-PNIKITA
--- NOTE | 2019-01-11 14:28 | Pulmonology Progress Note ---
Assessment/Plan Problems: (1) Morbid obesity (2) Peripheral edema (3) Cellulitis (4) Seizures (5) Cerebrovascular accident (6) Left-sided weakness (7) COPD (chronic obstructive pulmonary disease) (8) Right heart failure (9) Lumbar spondylosis (10) ADALBERTO (obstructive sleep apnea) Assessment/Plan all meds /notes reviewed pt/ot increase dialudid to 4 mg and add Methadone 10Q8 respiratory treatment titrate fio2 to sat of 92% dvt prophylaxis Subjective ROS Limited/Unobtainable: No Constitutional: Reports: no symptoms HEENT: Repors: no symptoms Allergies: Coded Allergies: ASPIRIN (Verified Allergy, Unknown, 07/14/18) KETOROLAC (Verified Allergy, Unknown, 07/14/18) PENICILLINS (Verified Allergy, Unknown, 12/23/18) tolerated Ancef on 08/2018 Objective Last 24 Hour Vital Signs Date Time Temp Pulse Resp B/P (MAP) Pulse Ox O2 Delivery O2 Flow Rate FiO2 01/11/19 12:00 98.1 96 18 136/85 (102) 91 01/11/19 09:05 134/71 01/11/19 09:00 Room Air 01/11/19 08:00 97.9 70 18 134/71 (92) 94 01/11/19 06:58 97.9 01/11/19 04:00 97.9 84 20 120/55 (76) 93 01/11/19 00:00 98.1 93 21 139/77 (97) 92 01/10/19 21:00 Room Air 01/10/19 20:27 84 20 95 Room Air 21 01/10/19 20:00 97.3 86 20 106/60 (75) 96 01/10/19 16:00 98.6 86 18 131/82 (98) 94 Intake and Output 01/10/19 01/11/19 19:00 07:00 Intake Total 1000 ml Balance 1000 ml Other 1000 ml # Voids 5 Objective HEENT: normocephalic, atraumatic Respiratory/Chest: chest wall non-tender, lungs clear Cardiovascular: normal peripheral pulses, normal rate Abdomen: normal bowel sounds, no organomegaly, massive fat on abdomen Extremities: no cyanosis Skin: no lesions Laboratory Tests 01/11/19 05:30: White Blood Count 6.8, Red Blood Count 3.57L, Hemoglobin 10.9L, Hematocrit 31.8L , Mean Corpuscular Volume 89, Mean Corpuscular Hemoglobin 30.4, Mean Corpuscular Hemoglobin Concent 34.2, Red Cell Distribution Width 13.2, Platelet Count 246, Mean Platelet Volume 4.8L, Neutrophils (%) (Auto) 58.7, Lymphocytes ( %) (Auto) 28.9, Monocytes (%) (Auto) 8.9, Eosinophils (%) (Auto) 2.7, Basophils (%) (Auto) 0.7, Sodium Level 139, Potassium Level 4.2, Chloride Level 103, Carbon Dioxide Level 37H, Anion Gap -1L, Blood Urea Nitrogen 14, Creatinine 1.0 , Estimat Glomerular Filtration Rate > 60, Glucose Level 67L, Calcium Level 8.5 Current Medications Medications (Trade) Dose Ordered Sig/Luis Route PRN Reason Start Time Stop Time Status Last Admin Dose Admin Acetaminophen (Tylenol) 650 mg Q4H PRN ORAL fever 12/15/18 14:54 01/14/19 14:53 Albuterol/ Ipratropium (Albuterol/ Ipratropium) 3 ml Q4H PRN HHN Shortness of Breath 01/09/19 16:30 01/14/19 16:29 Atorvastatin Calcium (Lipitor) 80 mg BEDTIME ORAL 12/15/18 21:00 01/14/19 20:59 01/10/19 21:46 Chlorhexidine Gluconate (Ruby-Hex 2%) 1 applic DAILY@2000 TOPIC 12/22/18 20:00 01/21/19 19:59 01/10/19 21:46 Clonidine HCl (Catapres Tab) 0.1 mg Q4H PRN ORAL For High Blood Pressure 12/15/18 14:56 01/14/19 14:55 Clopidogrel Bisulfate (Plavix) 75 mg DAILY ORAL 12/16/18 09:00 01/14/19 08:59 01/11/19 09:05 Dextrose (Dextrose 50%) 25 ml Q30M PRN IV Hypoglycemia 12/15/18 15:15 01/13/19 23:44 Dextrose (Dextrose 50%) 50 ml Q30M PRN IV Hypoglycemia 12/15/18 15:15 01/13/19 23:44 Duloxetine HCl (Cymbalta) 30 mg DAILY ORAL 12/16/18 09:00 01/14/19 08:59 01/11/19 09:05 Furosemide (Lasix) 20 mg Q12HR IV 01/09/19 21:00 01/21/19 00:00 01/11/19 09:04 Gabapentin (Neurontin) 600 mg THREE TIMES A DAY ORAL 12/15/18 18:00 01/14/19 08:59 01/11/19 13:28 Heparin Sodium (Porcine) (Heparin 5000 units/ml) 5,000 units EVERY 12 HOURS SUBQ 12/15/18 21:00 01/14/19 08:59 01/11/19 09:09 Hydromorphone HCl (Dilaudid) 4 mg Q4H PRN IVP For Pain 01/08/19 13:28 01/15/19 13:27 01/11/19 10:35 Levetiracetam (Keppra) 2,000 mg Q12HR ORAL 01/01/19 21:00 01/18/19 08:59 01/11/19 09:05 Lorazepam (Ativan 2mg/ml 1ml) 2 mg Q4H PRN IV For Anxiety 01/07/19 18:30 01/14/19 18:29 Losartan Potassium (Cozaar) 25 mg DAILY ORAL 12/29/18 13:45 01/28/19 13:44 01/11/19 09:05 Magnesium Oxide (Mag-Ox 400mg) 800 mg THREE TIMES A DAY ORAL 01/02/19 18:00 02/01/19 17:59 01/11/19 13:28 Methadone HCl (Methadone HCl) 15 mg Q8HR ORAL 01/06/19 14:00 01/13/19 13:59 01/11/19 13:29 Nitroglycerin (Ntg) 0.4 mg Q5M X 3 DOSES PRN SL Prn Chest Pain 12/15/18 14:45 01/13/19 23:44 01/02/19 11:59 Ondansetron HCl (Zofran) 4 mg Q6H PRN IVP Nausea & Vomiting 12/15/18 14:55 01/14/19 14:54 12/17/18 10:19 Polyethylene Glycol (Miralax) 17 gm HSPRN PRN ORAL Constipation 12/15/18 14:55 01/14/19 14:54 Pregabalin (Lyrica) 100 mg THREE TIMES A DAY ORAL 12/26/18 09:00 01/19/19 22:59 01/11/19 13:28 Promethazine HCl/ Codeine (Phenergan with Codeine) 5 ml Q4H PRN ORAL For Cough 12/28/18 12:00 01/27/19 11:59 01/01/19 01:34 Trazodone HCl (Desyrel) 100 mg BEDTIME ORAL 12/15/18 21:00 01/14/19 20:59 01/10/19 21:46 Bill Dixon MD Jan 11, 2019 14:28
--- NOTE | 2019-01-11 15:00 | NUR ---
NURSE NOTES: seen by DR. leblanc. recommended not to use optifoams for cellulitis on lt lower leg as wound care nurse recommended, use xerofoam and cover with abd pad and kerlix. patient verbalized understood.
[2019-01-11 16:00] VITALS: BP 117/61
--- NOTE | 2019-01-11 19:03 | NUR ---
HAND-OFF: Report given to MICAELA Askew.
--- NOTE | 2019-01-11 19:21 | NUR ---
NURSE NOTES: Received patient in bed, awake, alert, oriented, ambulatory, no acute distress noted, VSS, afebrile, call light is within reach, bed is in low position, locked and alarm is on. Will continue to monitor for safety and comfort.
[2019-01-11 20:05] VITALS: BP 117/74
[2019-01-11] MEDS: TraZODone 100mg tab ORAL SCH (20:07)
[2019-01-11] MEDS: Atorvastatin 80mg tab ORAL SCH (20:07)
[2019-01-11] MEDS: Dyna-Hex 2% Top Sol 2oz TOPIC SCH (20:07)
--- NOTE | 2019-01-11 22:25 | Neurology Progress Note ---
Interim History Interim History ROS Limited/Unobtainable: No Complaints: Seizures/ Weakness Events: This visit was performed on January 11, [address] Amador Brewster Review of Systems All Systems: reviewed and negative except above Objective Physical Exam Last Vital Signs Date Time Temp Pulse Resp B/P (MAP) Pulse Ox O2 Delivery O2 Flow Rate FiO2 01/11/19 21:00 Room Air 01/11/19 20:05 97.9 88 20 117/74 (88) 01/11/19 19:31 96 21 01/06/19 21:48 2.0 Laboratory Tests Test 01/11/19 05:30 White Blood Count 6.8 K/UL (4.8-10.8) Red Blood Count 3.57 M/UL (4.70-6.10) L Hemoglobin 10.9 G/DL (14.2-18.0) L Hematocrit 31.8 % (42.0-52.0) L Mean Corpuscular Volume 89 FL (80-99) Mean Corpuscular Hemoglobin 30.4 PG (27.0-31.0) Mean Corpuscular Hemoglobin Concent 34.2 G/DL (32.0-36.0) Red Cell Distribution Width 13.2 % (11.6-14.8) Platelet Count 246 K/UL (150-450) Mean Platelet Volume 4.8 FL (6.5-10.1) L Neutrophils (%) (Auto) 58.7 % (45.0-75.0) Lymphocytes (%) (Auto) 28.9 % (20.0-45.0) Monocytes (%) (Auto) 8.9 % (1.0-10.0) Eosinophils (%) (Auto) 2.7 % (0.0-3.0) Basophils (%) (Auto) 0.7 % (0.0-2.0) Sodium Level 139 MMOL/L (136-145) Potassium Level 4.2 MMOL/L (3.5-5.1) Chloride Level 103 MMOL/L (98-107) Carbon Dioxide Level 37 MMOL/L (21-32) H Anion Gap -1 mmol/L (5-15) L Blood Urea Nitrogen 14 mg/dL (7-18) Creatinine 1.0 MG/DL (0.55-1.30) Estimat Glomerular Filtration Rate > 60 mL/min (>60) Glucose Level 67 MG/DL (74-106) L Calcium Level 8.5 MG/DL (8.5-10.1) General: well developed, other - Morbidly obese Head: normocophalic Neck: no rigidity EENT: benign Neurologic Exam Mental Status: awake, alert, oriented x4, normal cognition, good mathematical skills, normal recent memory, normal remote memory, preserved visuospatial function Speech: normal speech, no dysarthia Language: normal language, no aphasia Cranial Nerve II: fundus normal, visual bonilla, no papilledema Cranial Nerves III, IV, : PERRLA, EOMI, pupils Cranial Nerve V: normal facial sensations, temporales function normal, masseters function normal, pterygoids function normal Cranial Nerve VII: normal facial expressions, other Cranial Nerve VIII: normal hearing, no nystagmus Cranial Nerve IX: normal palate elevation, gag response Cranial Nerve X: no voice hoarseness Cranial Nerve XI: SCM symmetric, trapezii function normal Cranial Nerve XII: tongue midline, no tongue atrophy/fasciculations Motor System: normal muscle tone, no involuntary movement, no muscle wasting Sensory: normal pinprick, normal light touch, normal position sense, normal graphesthesia Coordination: normal heel to villarreal bilaterally, negative Romberg test Deep Tendon Reflexes: 1+ bicep (L), 1+ bicep (R), 1+ tricep (L), 1+ tricep (R) , 1+ brachioradialis (L), 1+ brachioradialis (R), 1+ knee (L), 1+ knee (R), 1+ ankle (L), 1+ ankle (R) Reflexes: flexor plantar (L), flexor plantar (R); extensor plantar (L), extensor plantar (R) Stance: other - Broad based Gait: stable Objective Left arm, predominantly hand weakness at this time. Alert and oriented Ambulatory with cellulitis persisting on BLE He does not have proximal left arm weakness at this time, mild facial weakness, tongue deviated on exam Impression/Recommendations Problems: (1) Seizures Assessment & Plan: Keppra 2000mg BID PO Maintain SBP<140 Q4 Hour Neuro Checks Ativan 2mg PRN for seizure activity CT Head w/o contrast when able to rule out CVA - also for consideration of MRI if CT negative. - low suspicion of CVA due to normotensive status without risk factors of elevated BP/ HgBA1c or thyroid dysfunction. Na 135-145 Continue pain management - Lyrica 100mg TID - Continue Gabapentin 600mg TID Intense PT recommended EEG negative for seizures, but consistent with mild encephalopathy. Same on Repeat Correct hypocalcemia (2) Morbid obesity (3) COPD (chronic obstructive pulmonary disease) (4) Uncontrolled seizures (5) Left-sided weakness Assessment & Plan: No seizure activity captured on EEG but mild to moderate degree of encephalopathy seen. Repeat EEG same as previous (6) Knee osteomyelits, right Status: stable, progressing Recommendations Q4 hour Neuro Obs - NO NIGHTTIME OBS if stable Prevent delirium Maintain regular sleep schedule and reduce nighttime activities such as observations (if unnecessary) Maintain Keppra dose at 2g BID, no additional meds at this time. Discharge planning for Patient neurologically stable at this time for discharge Vicky Taylor N.P. Jan 11, 2019 22:25
[2019-01-12] VITALS (7 sets, daily range): BP systolic 111–155; BP diastolic 59–100
[2019-01-12 05:17] LABS: BASOPHILS % (AUTO) 0.9 % (0.0-2.0); EOSINOPHILS % (AUTO) 2.3 % (0.0-3.0); HEMATOCRIT 34.7 % (42.0-52.0); HEMOGLOBIN 11.2 G/DL (14.2-18.0); LYMPHOCYTES % (AUTO) 33.7 % (20.0-45.0); MEAN CORPUSCULAR VOLUME 92 FL (80-99); MONOCYTES % (AUTO) 7.8 % (1.0-10.0); NEUTROPHILS % (AUTO) 55.2 % (45.0-75.0); PLATELET COUNT 246 K/UL (150-450); RED BLOOD COUNT 3.79 M/UL (4.70-6.10); RED CELL DISTRIBUTION WIDTH 13.6 % (11.6-14.8); WHITE BLOOD COUNT 6.7 K/UL (4.8-10.8)
[2019-01-12 06:41] LABS: ANION GAP 5 mmol/L (5-15); BLOOD UREA NITROGEN 16 mg/dL (7-18); CALCIUM 8.7 MG/DL (8.5-10.1); CARBON DIOXIDE 34 MMOL/L (21-32); CHLORIDE 101 MMOL/L (98-107); CREATININE 0.9 MG/DL (0.55-1.30); POTASSIUM 4.5 MMOL/L (3.5-5.1); SODIUM 140 MMOL/L (136-145)
--- NOTE | 2019-01-12 07:30 | NUR ---
NURSE NOTES: Received pt from MICAELA APPLE. pt is alert and orient x4. Pt is in RA, No SOB or acute respiratory distress noted. Pt has PICC JADE SL. All needs attended, bed is locked and is in the lowest position, call light within east reach. will continue to monitor.
--- NOTE | 2019-01-12 07:38 | NUR ---
HAND-OFF: Report given to Dipika HINOJOSA.
[2019-01-12] MEDS: Magnesium Oxide 400mg tab ORAL SCH ×3 (09:21→17:09)
[2019-01-12] MEDS: DULoxetine 30mg cap ORAL SCH (09:21)
[2019-01-12] MEDS: Lyrica 50mg cap ORAL SCH ×3 (09:21→17:09)
[2019-01-12] MEDS: Losartan 25mg tab ORAL SCH (09:21)
[2019-01-12] MEDS: Heparin 5000 units/ml inj SUBQ SCH ×2 (09:30→19:55)
--- NOTE | 2019-01-12 10:06 | Diagnostic Imaging Report ---
Indication: Left knee pain Technique: 2 views of left knee. Comparison: none Findings: Exam is very limited due to limited ability the patient to cooperate with positioning. True lateral and true AP view not obtained. There is suggestion of narrowing of the lateral joint compartment. No gross acute fractures or dislocations demonstrated. Unable to completely assess for suprapatellar effusion, however. Impression: Limited, essentially nondiagnostic exam. No gross acute pathology. Probable degenerative changes of the lateral joint compartment
--- NOTE | 2019-01-12 10:50 | NUR ---
PT WEEKLY PROGRESS NOTE Patient's demonstrates improvement in overall activity tolerance and ambulation endurance. Patient currently able to ambulate 40 ft x 2 with bariatric FWW and 1 sitting rest. Patient continues to c/o BLE pain which limits his endurance however patient motivated to further increase his level of activity. Patient agreed to use bariatric FWW for improved balance and safety with ambulation. Patient will benefit from continued skilled inpatient PT intervention to improve level of functional mobility within patient tolerance.
--- NOTE | 2019-01-12 11:15 | Infectious Diseases Prog Note ---
Assessment/Plan Assessment/Plan B/l Leg cellulitis and panniculitis - in the setting of chronic venous stasis Active infectious cellulitis essentially resolved. Now he has chronic venous stasis and neuropathic pain with poorly healing wounds. Alot off this is due to the severe swelling in his feet but also he is poorly compliant with wound care instructions. L side weakness/spasticity- thought be 2ry to seizures- r/O CVA- no active infectious process at present (pt afebrile- doubt meningitis at this moment) Afebrile No leukocytosis -CXR: No acute findings CVA HTN bipolar disorder w/ psychotic features tobacco abuse anxiety disorder chronic pain CHF seizure disorder COPD morbid obesity Dm2 HTN SNF resident Plan: - Monitor off abx - Needs wound care for healing. - Patient pooly compliant with leg elevation and wound dressing instruction - 01/07/19 SP IV Dapto d# 14 - 01/06/19 S/P Levofloxacin #7 - 12/25 sp Bactrim #4/14 and add IV Ancef #3/14 for cellulitis - Patient pooly compliant with leg elevation and wound dressing instruction - Monitor CBC/CMP, temperatures - aspiration precautions - wound care per hospital protocol Subjective Allergies: Coded Allergies: ASPIRIN (Verified Allergy, Unknown, 07/14/18) KETOROLAC (Verified Allergy, Unknown, 07/14/18) PENICILLINS (Verified Allergy, Unknown, 12/23/18) tolerated Ancef on 08/2018 Subjective JANEE Afebrile No leukocytosis Objective Vital Signs Last 24 Hour Vital Signs Date Time Temp Pulse Resp B/P (MAP) Pulse Ox O2 Delivery O2 Flow Rate FiO2 01/12/19 09:21 117/82 01/12/19 08:00 98.1 95 19 117/82 (94) 93 01/12/19 04:33 98.4 91 20 146/97 (113) 01/12/19 00:27 98.1 101 22 127/66 (86) 01/11/19 21:00 Room Air 01/11/19 20:05 97.9 88 20 117/74 (88) 01/11/19 19:31 88 20 96 Room Air 21 01/11/19 16:00 98.7 67 18 117/61 (79) 96 01/11/19 12:00 98.1 96 18 136/85 (102) 91 Height (Feet): 5 Height (Inches): 10.00 Weight (Pounds): 495 Objective GEN: NAD HEENT: NCAT, MMM Respiratory/Chest: CTAB, No W Cardiovascular: RRR, S1, S2 Abdomen: Soft, ND Ext. LE with severe edema - right leg healing well. Left still with significant serous drainage. Skin wet and macerated from drainage. Laboratory Tests Test 01/12/19 04:20 White Blood Count 6.7 K/UL (4.8-10.8) Red Blood Count 3.79 M/UL (4.70-6.10) L Hemoglobin 11.2 G/DL (14.2-18.0) L Hematocrit 34.7 % (42.0-52.0) L Mean Corpuscular Volume 92 FL (80-99) Mean Corpuscular Hemoglobin 29.5 PG (27.0-31.0) Mean Corpuscular Hemoglobin Concent 32.2 G/DL (32.0-36.0) Red Cell Distribution Width 13.6 % (11.6-14.8) Platelet Count 246 K/UL (150-450) Mean Platelet Volume 4.9 FL (6.5-10.1) L Neutrophils (%) (Auto) 55.2 % (45.0-75.0) Lymphocytes (%) (Auto) 33.7 % (20.0-45.0) Monocytes (%) (Auto) 7.8 % (1.0-10.0) Eosinophils (%) (Auto) 2.3 % (0.0-3.0) Basophils (%) (Auto) 0.9 % (0.0-2.0) Sodium Level 140 MMOL/L (136-145) Potassium Level 4.5 MMOL/L (3.5-5.1) Chloride Level 101 MMOL/L (98-107) Carbon Dioxide Level 34 MMOL/L (21-32) H Anion Gap 5 mmol/L (5-15) Blood Urea Nitrogen 16 mg/dL (7-18) Creatinine 0.9 MG/DL (0.55-1.30) Estimat Glomerular Filtration Rate > 60 mL/min (>60) Glucose Level 90 MG/DL (74-106) Calcium Level 8.7 MG/DL (8.5-10.1) Current Medications Medications (Trade) Dose Ordered Sig/Luis Route PRN Reason Start Time Stop Time Status Last Admin Dose Admin Acetaminophen (Tylenol) 650 mg Q4H PRN ORAL fever 12/15/18 14:54 01/14/19 14:53 Albuterol/ Ipratropium (Albuterol/ Ipratropium) 3 ml Q4H PRN HHN Shortness of Breath 01/09/19 16:30 01/14/19 16:29 Atorvastatin Calcium (Lipitor) 80 mg BEDTIME ORAL 12/15/18 21:00 01/14/19 20:59 01/11/19 20:07 Chlorhexidine Gluconate (Ruby-Hex 2%) 1 applic DAILY@2000 TOPIC 12/22/18 20:00 01/21/19 19:59 01/11/19 20:07 Clonidine HCl (Catapres Tab) 0.1 mg Q4H PRN ORAL For High Blood Pressure 12/15/18 14:56 01/14/19 14:55 Clopidogrel Bisulfate (Plavix) 75 mg DAILY ORAL 12/16/18 09:00 01/14/19 08:59 01/12/19 09:21 Dextrose (Dextrose 50%) 25 ml Q30M PRN IV Hypoglycemia 12/15/18 15:15 01/13/19 23:44 Dextrose (Dextrose 50%) 50 ml Q30M PRN IV Hypoglycemia 12/15/18 15:15 01/13/19 23:44 Duloxetine HCl (Cymbalta) 30 mg DAILY ORAL 12/16/18 09:00 01/14/19 08:59 01/12/19 09:21 Furosemide (Lasix) 20 mg Q12HR IV 01/09/19 21:00 01/21/19 00:00 01/12/19 09:21 Gabapentin (Neurontin) 600 mg THREE TIMES A DAY ORAL 12/15/18 18:00 01/14/19 08:59 01/12/19 09:22 Heparin Sodium (Porcine) (Heparin 5000 units/ml) 5,000 units EVERY 12 HOURS SUBQ 12/15/18 21:00 01/14/19 08:59 01/12/19 09:30 Hydromorphone HCl (Dilaudid) 4 mg Q4H PRN IVP For Pain 01/08/19 13:28 01/15/19 13:27 01/12/19 11:06 Levetiracetam (Keppra) 2,000 mg Q12HR ORAL 01/01/19 21:00 01/18/19 08:59 01/12/19 09:21 Lorazepam (Ativan 2mg/ml 1ml) 2 mg Q4H PRN IV For Anxiety 01/07/19 18:30 01/14/19 18:29 Losartan Potassium (Cozaar) 25 mg DAILY ORAL 12/29/18 13:45 01/28/19 13:44 01/12/19 09:21 Magnesium Oxide (Mag-Ox 400mg) 800 mg THREE TIMES A DAY ORAL 01/02/19 18:00 02/01/19 17:59 01/12/19 09:21 Methadone HCl (Methadone HCl) 15 mg Q8HR ORAL 01/06/19 14:00 01/13/19 13:59 01/12/19 06:13 Nitroglycerin (Ntg) 0.4 mg Q5M X 3 DOSES PRN SL Prn Chest Pain 12/15/18 14:45 01/13/19 23:44 01/02/19 11:59 Ondansetron HCl (Zofran) 4 mg Q6H PRN IVP Nausea & Vomiting 12/15/18 14:55 01/14/19 14:54 12/17/18 10:19 Polyethylene Glycol (Miralax) 17 gm HSPRN PRN ORAL Constipation 12/15/18 14:55 01/14/19 14:54 Pregabalin (Lyrica) 100 mg THREE TIMES A DAY ORAL 12/26/18 09:00 01/19/19 22:59 01/12/19 09:21 Promethazine HCl/ Codeine (Phenergan with Codeine) 5 ml Q4H PRN ORAL For Cough 12/28/18 12:00 01/27/19 11:59 01/01/19 01:34 Trazodone HCl (Desyrel) 100 mg BEDTIME ORAL 12/15/18 21:00 01/14/19 20:59 01/11/19 20:07 Elliot Chauhan MD Jan 12, 2019 11:15
--- NOTE | 2019-01-12 12:25 | Nephrology Progress Note ---
Assessment/Plan Problem List: (1) Hyponatremia (2) Morbid obesity (3) COPD (chronic obstructive pulmonary disease) Plan Mag IV as needed Mag PO TID Low Na resolved cont per consultants ? DC planning Subjective ROS Limited/Unobtainable: No Objective Objective Last 24 Hour Vital Signs Date Time Temp Pulse Resp B/P (MAP) Pulse Ox O2 Delivery O2 Flow Rate FiO2 01/12/19 12:00 97.7 104 19 155/100 (118) 91 01/12/19 11:36 98.1 01/12/19 09:21 117/82 01/12/19 09:00 Room Air 01/12/19 08:00 98.1 95 19 117/82 (94) 93 01/12/19 04:33 98.4 91 20 146/97 (113) 01/12/19 00:27 98.1 101 22 127/66 (86) 01/11/19 21:00 Room Air 01/11/19 20:05 97.9 88 20 117/74 (88) 01/11/19 19:31 88 20 96 Room Air 21 01/11/19 16:00 98.7 67 18 117/61 (79) 96 Intake and Output 01/11/19 01/12/19 19:00 07:00 Intake Total 1600 ml Balance 1600 ml Other 1600 ml # Voids 6 Laboratory Tests 01/12/19 04:20: White Blood Count 6.7, Red Blood Count 3.79L, Hemoglobin 11.2L, Hematocrit 34.7L , Mean Corpuscular Volume 92, Mean Corpuscular Hemoglobin 29.5, Mean Corpuscular Hemoglobin Concent 32.2, Red Cell Distribution Width 13.6, Platelet Count 246, Mean Platelet Volume 4.9L, Neutrophils (%) (Auto) 55.2, Lymphocytes ( %) (Auto) 33.7, Monocytes (%) (Auto) 7.8, Eosinophils (%) (Auto) 2.3, Basophils (%) (Auto) 0.9, Sodium Level 140, Potassium Level 4.5, Chloride Level 101, Carbon Dioxide Level 34H, Anion Gap 5, Blood Urea Nitrogen 16, Creatinine 0.9, Estimat Glomerular Filtration Rate > 60, Glucose Level 90, Calcium Level 8.7 Height (Feet): 5 Height (Inches): 10.00 Weight (Pounds): 495 General Appearance: no apparent distress Objective no change Devante Taylor MD Jan 12, 2019 12:25
--- NOTE | 2019-01-12 13:10 | NUR ---
RD ASSESSMENT & RECOMMENDATIONS SEE CARE ACTIVITY FOR COMPLETE ASSESSMENT DAILY ESTIMATED NEEDS: Needs based on obesity, pulmonary, 107kg abw 15-20 kcals/kg 0358-3724 total kcals 1-1.5 g protein/kg 107-161 g total protein 15-25ml/kcal mL/kg 8290-2989 total fluid mLs NUTRITION DIAGNOSIS: Decreased sodium and fat intake needs R/T cardiac h/o and morbid obesity as evidenced by h/o CHF, CVA, w/ BMI>50, @230% of [place] Body Weight. CURRENT DIET:Regular PO DIET RECOMMENDATIONS: REC DIET CHANGE TO -> CARDIAC ADDITIONAL RECOMMENDATIONS: * Obtain a standing weight as able or calibrated bedscale wt for accurate * Diet change to Cardiac * Pt not receptive to diet edu at this time (reattempted 01/12) * Monitor lytes closely while on diuretics, replete as needed
--- NOTE | 2019-01-12 13:30 | General Progress Note ---
Assessment/Plan Problem List: (1) Abdominal pannus ICD Codes: E65 - Localized adiposity SNOMED: 2804063522719 (2) Peripheral edema ICD Codes: R60.9 - Edema, unspecified SNOMED: 315954935 (3) Abdominal wall cellulitis ICD Codes: L03.311 - Cellulitis of abdominal wall SNOMED: 29791020 (4) Leg pain ICD Codes: M79.606 - Pain in leg, unspecified SNOMED: 99743379 (5) COPD (chronic obstructive pulmonary disease) ICD Codes: J44.9 - Chronic obstructive pulmonary disease, unspecified SNOMED: 82001013 (6) Seizures ICD Codes: R56.9 - Unspecified convulsions SNOMED: 40608896 (7) Morbid obesity ICD Codes: E66.01 - Morbid (severe) obesity due to excess calories SNOMED: 319509509 (8) Cerebrovascular accident ICD Codes: I63.9 - Cerebral infarction, unspecified SNOMED: 418478873 (9) Left-sided weakness ICD Codes: R53.1 - Weakness SNOMED: 630379468 Status: stable, progressing Assessment/Plan: pt diet neuro f/u wound care abx pain control cbc bmp am dc to snf if clear Subjective Constitutional: Reports: weakness Allergies: Coded Allergies: ASPIRIN (Verified Allergy, Unknown, 07/14/18) KETOROLAC (Verified Allergy, Unknown, 07/14/18) PENICILLINS (Verified Allergy, Unknown, 12/23/18) tolerated Ancef on 08/2018 All Systems: reviewed and negative except above Subjective sleepy calm Objective Last 24 Hour Vital Signs Date Time Temp Pulse Resp B/P (MAP) Pulse Ox O2 Delivery O2 Flow Rate FiO2 01/12/19 12:00 97.7 104 19 155/100 (118) 91 01/12/19 11:36 98.1 01/12/19 09:21 117/82 01/12/19 09:00 Room Air 01/12/19 08:00 98.1 95 19 117/82 (94) 93 01/12/19 04:33 98.4 91 20 146/97 (113) 01/12/19 00:27 98.1 101 22 127/66 (86) 01/11/19 21:00 Room Air 01/11/19 20:05 97.9 88 20 117/74 (88) 01/11/19 19:31 88 20 96 Room Air 21 01/11/19 16:00 98.7 67 18 117/61 (79) 96 Intake and Output 01/11/19 01/12/19 19:00 07:00 Intake Total 1600 ml Balance 1600 ml Other 1600 ml # Voids 6 Laboratory Tests 01/12/19 04:20: White Blood Count 6.7, Red Blood Count 3.79L, Hemoglobin 11.2L, Hematocrit 34.7L , Mean Corpuscular Volume 92, Mean Corpuscular Hemoglobin 29.5, Mean Corpuscular Hemoglobin Concent 32.2, Red Cell Distribution Width 13.6, Platelet Count 246, Mean Platelet Volume 4.9L, Neutrophils (%) (Auto) 55.2, Lymphocytes ( %) (Auto) 33.7, Monocytes (%) (Auto) 7.8, Eosinophils (%) (Auto) 2.3, Basophils (%) (Auto) 0.9, Sodium Level 140, Potassium Level 4.5, Chloride Level 101, Carbon Dioxide Level 34H, Anion Gap 5, Blood Urea Nitrogen 16, Creatinine 0.9, Estimat Glomerular Filtration Rate > 60, Glucose Level 90, Calcium Level 8.7 Height (Feet): 5 Height (Inches): 10.00 Weight (Pounds): 495 General Appearance: lethargic EENT: normal ENT inspection Neck: normal alignment Cardiovascular: normal peripheral pulses, normal rate, regular rhythm Respiratory/Chest: chest wall non-tender, lungs clear, normal breath sounds Abdomen: normal bowel sounds, soft, distended Extremities: normal inspection Edema: 1+ Arm (L), 1+ Arm (R), 1+ Leg (L), 1+ Leg (R), 1+ Pedal (L), 1+ Pedal ( R), 1+ Generalized Edema: trace edema Neurologic: responsive, motor weakness Skin: normal pigmentation, warm/dry Objective bl' villarreal dressing c&d Ernesto Nicole DO Jan 12, 2019 13:30
--- NOTE | 2019-01-12 14:29 | NUR ---
NURSE NOTES: Pt complained PICC dressing is loose, PICC change dressing done. will continue to monitor.
--- NOTE | 2019-01-12 14:32 | Pulmonology Progress Note ---
Assessment/Plan Problems: (1) Morbid obesity (2) Peripheral edema (3) Cellulitis (4) Seizures (5) Cerebrovascular accident (6) Left-sided weakness (7) COPD (chronic obstructive pulmonary disease) (8) Right heart failure (9) Lumbar spondylosis (10) ADALBERTO (obstructive sleep apnea) Assessment/Plan all meds /notes reviewed pt/ot increase dialudid to 4 mg and add Methadone 10Q8 respiratory treatment titrate fio2 to sat of 92% dvt prophylaxis Subjective ROS Limited/Unobtainable: No Constitutional: Reports: no symptoms HEENT: Repors: no symptoms Respiratory: Reports: no symptoms Allergies: Coded Allergies: ASPIRIN (Verified Allergy, Unknown, 07/14/18) KETOROLAC (Verified Allergy, Unknown, 07/14/18) PENICILLINS (Verified Allergy, Unknown, 12/23/18) tolerated Ancef on 08/2018 Objective Last 24 Hour Vital Signs Date Time Temp Pulse Resp B/P (MAP) Pulse Ox O2 Delivery O2 Flow Rate FiO2 01/12/19 12:00 97.7 104 19 155/100 (118) 91 01/12/19 11:36 98.1 01/12/19 09:21 117/82 01/12/19 09:00 Room Air 01/12/19 08:00 98.1 95 19 117/82 (94) 93 01/12/19 04:33 98.4 91 20 146/97 (113) 01/12/19 00:27 98.1 101 22 127/66 (86) 01/11/19 21:00 Room Air 01/11/19 20:05 97.9 88 20 117/74 (88) 01/11/19 19:31 88 20 96 Room Air 21 01/11/19 16:00 98.7 67 18 117/61 (79) 96 Intake and Output 01/11/19 01/12/19 19:00 07:00 Intake Total 1600 ml Balance 1600 ml Other 1600 ml # Voids 6 Objective HEENT: normocephalic, atraumatic Respiratory/Chest: chest wall non-tender, lungs clear Cardiovascular: normal peripheral pulses, normal rate Abdomen: normal bowel sounds, no organomegaly, massive fat on abdomen Extremities: no cyanosis Skin: no lesions Laboratory Tests 01/12/19 04:20: White Blood Count 6.7, Red Blood Count 3.79L, Hemoglobin 11.2L, Hematocrit 34.7L , Mean Corpuscular Volume 92, Mean Corpuscular Hemoglobin 29.5, Mean Corpuscular Hemoglobin Concent 32.2, Red Cell Distribution Width 13.6, Platelet Count 246, Mean Platelet Volume 4.9L, Neutrophils (%) (Auto) 55.2, Lymphocytes ( %) (Auto) 33.7, Monocytes (%) (Auto) 7.8, Eosinophils (%) (Auto) 2.3, Basophils (%) (Auto) 0.9, Sodium Level 140, Potassium Level 4.5, Chloride Level 101, Carbon Dioxide Level 34H, Anion Gap 5, Blood Urea Nitrogen 16, Creatinine 0.9, Estimat Glomerular Filtration Rate > 60, Glucose Level 90, Calcium Level 8.7 Current Medications Medications (Trade) Dose Ordered Sig/Luis Route PRN Reason Start Time Stop Time Status Last Admin Dose Admin Acetaminophen (Tylenol) 650 mg Q4H PRN ORAL fever 12/15/18 14:54 01/14/19 14:53 Albuterol/ Ipratropium (Albuterol/ Ipratropium) 3 ml Q4H PRN HHN Shortness of Breath 01/09/19 16:30 01/14/19 16:29 Atorvastatin Calcium (Lipitor) 80 mg BEDTIME ORAL 12/15/18 21:00 01/14/19 20:59 01/11/19 20:07 Chlorhexidine Gluconate (Ruby-Hex 2%) 1 applic DAILY@2000 TOPIC 12/22/18 20:00 01/21/19 19:59 01/11/19 20:07 Clonidine HCl (Catapres Tab) 0.1 mg Q4H PRN ORAL For High Blood Pressure 12/15/18 14:56 01/14/19 14:55 Clopidogrel Bisulfate (Plavix) 75 mg DAILY ORAL 12/16/18 09:00 01/14/19 08:59 01/12/19 09:21 Dextrose (Dextrose 50%) 25 ml Q30M PRN IV Hypoglycemia 12/15/18 15:15 01/13/19 23:44 Dextrose (Dextrose 50%) 50 ml Q30M PRN IV Hypoglycemia 12/15/18 15:15 01/13/19 23:44 Duloxetine HCl (Cymbalta) 30 mg DAILY ORAL 12/16/18 09:00 01/14/19 08:59 01/12/19 09:21 Furosemide (Lasix) 20 mg Q12HR IV 01/09/19 21:00 01/21/19 00:00 01/12/19 09:21 Gabapentin (Neurontin) 600 mg THREE TIMES A DAY ORAL 12/15/18 18:00 01/14/19 08:59 01/12/19 13:22 Heparin Sodium (Porcine) (Heparin 5000 units/ml) 5,000 units EVERY 12 HOURS SUBQ 12/15/18 21:00 01/14/19 08:59 01/12/19 09:30 Hydromorphone HCl (Dilaudid) 4 mg Q4H PRN IVP For Pain 01/08/19 13:28 01/15/19 13:27 01/12/19 11:06 Levetiracetam (Keppra) 2,000 mg Q12HR ORAL 01/01/19 21:00 01/18/19 08:59 01/12/19 09:21 Lorazepam (Ativan 2mg/ml 1ml) 2 mg Q4H PRN IV For Anxiety 01/07/19 18:30 01/14/19 18:29 Losartan Potassium (Cozaar) 25 mg DAILY ORAL 12/29/18 13:45 01/28/19 13:44 01/12/19 09:21 Magnesium Oxide (Mag-Ox 400mg) 800 mg THREE TIMES A DAY ORAL 01/02/19 18:00 02/01/19 17:59 01/12/19 13:22 Methadone HCl (Methadone HCl) 15 mg Q8HR ORAL 01/06/19 14:00 01/13/19 13:59 01/12/19 13:22 Nitroglycerin (Ntg) 0.4 mg Q5M X 3 DOSES PRN SL Prn Chest Pain 12/15/18 14:45 01/13/19 23:44 01/02/19 11:59 Ondansetron HCl (Zofran) 4 mg Q6H PRN IVP Nausea & Vomiting 12/15/18 14:55 01/14/19 14:54 12/17/18 10:19 Polyethylene Glycol (Miralax) 17 gm HSPRN PRN ORAL Constipation 12/15/18 14:55 01/14/19 14:54 Pregabalin (Lyrica) 100 mg THREE TIMES A DAY ORAL 12/26/18 09:00 01/19/19 22:59 01/12/19 13:22 Promethazine HCl/ Codeine (Phenergan with Codeine) 5 ml Q4H PRN ORAL For Cough 12/28/18 12:00 01/27/19 11:59 01/01/19 01:34 Trazodone HCl (Desyrel) 100 mg BEDTIME ORAL 12/15/18 21:00 01/14/19 20:59 01/11/19 20:07 Bill Dixon MD Jan 12, 2019 14:32
--- NOTE | 2019-01-12 16:46 | NUR ---
TAX DIRECTORTAX COMPLIANCE REPRESENTATIVE SI:PANNICULITIS . PERIPHERAL EDEMA VS: BP 155/100, P 104, T 97.7, RR 18, SpO2 91 RBC 3.79, H&H 11.2/34.7 KNEE XRAY: Probable degenerative changes of the lateral joint compartment IS:DILAUDID 4mg GABAPENTIN 600mg LYRICA 100mg MAGNESIUM OXIDE 800mg METHADONE 15mg HEPARIN SUBQ PLAVIX 75mg CYMBALTA 30mg COZAAR 25mg KEPPRA 2000mg LASIX 20mg IV MED/SURG STATUS
--- NOTE | 2019-01-12 18:30 | Progress Note ---
DATE: 01/12/2019 SUBJECTIVE: This is a 53-year-old male, rule out CVA. The patient still has anxiety and depression worsened by stress of his medical illness that is why, his attending physician has requested daily psychiatric consultation for this patient. PLAN: Plan for this patient is to treat him with psychotropic medication regimen consisting of Ativan 2 mg q. 4 h IV p.r.n. anxiety and agitation, Cymbalta 30 mg daily, Neurontin 600 mg three times a day. Provide him with 20 minutes of cognitive behavioral therapy to help him identify his automatic negative thoughts, help him convert his negative thoughts to more positive thoughts to reduce depression, anxiety, suicidality. A 20 minutes of cognitive behavioral therapy. Chart reviewed. Discussed with staff. Seen and assessed at bedside. Laney Mcghee M.D. DR: Doretha JOB#: [id number] CC:
--- NOTE | 2019-01-12 19:23 | NUR ---
HAND-OFF: Report given to MICAELA APPLE.
--- NOTE | 2019-01-12 19:30 | NUR ---
NURSE NOTES: Received patient in bed, awake, alert, oriented, BRP, afebrile, VSS, no acute distress noted.Call light is within reach, bed is locked and alarm is on, will continue to monitor for safety and comfort.
[2019-01-12] MEDS: Dyna-Hex 2% Top Sol 2oz TOPIC SCH (19:52)
[2019-01-12] MEDS: Atorvastatin 80mg tab ORAL SCH (19:53)
[2019-01-12] MEDS: TraZODone 100mg tab ORAL SCH (19:53)
--- NOTE | 2019-01-12 23:39 | Neurology Progress Note ---
Interim History Interim History ROS Limited/Unobtainable: No Complaints: Seizures/ Weakness Events: This visit was performed on January 12, [address] Amador Brewster Interim History No seizures, no hand spasms, left hand strength / movement continues to improve. Neuropathy stable. Awaiting D/C accomodations. Objective Physical Exam Last Vital Signs Date Time Temp Pulse Resp B/P (MAP) Pulse Ox O2 Delivery O2 Flow Rate FiO2 01/12/19 21:27 98.0 88 20 118/63 (81) 01/12/19 21:00 Room Air 01/12/19 20:00 95 21 01/06/19 21:48 2.0 Laboratory Tests Test 01/12/19 04:20 White Blood Count 6.7 K/UL (4.8-10.8) Red Blood Count 3.79 M/UL (4.70-6.10) L Hemoglobin 11.2 G/DL (14.2-18.0) L Hematocrit 34.7 % (42.0-52.0) L Mean Corpuscular Volume 92 FL (80-99) Mean Corpuscular Hemoglobin 29.5 PG (27.0-31.0) Mean Corpuscular Hemoglobin Concent 32.2 G/DL (32.0-36.0) Red Cell Distribution Width 13.6 % (11.6-14.8) Platelet Count 246 K/UL (150-450) Mean Platelet Volume 4.9 FL (6.5-10.1) L Neutrophils (%) (Auto) 55.2 % (45.0-75.0) Lymphocytes (%) (Auto) 33.7 % (20.0-45.0) Monocytes (%) (Auto) 7.8 % (1.0-10.0) Eosinophils (%) (Auto) 2.3 % (0.0-3.0) Basophils (%) (Auto) 0.9 % (0.0-2.0) Sodium Level 140 MMOL/L (136-145) Potassium Level 4.5 MMOL/L (3.5-5.1) Chloride Level 101 MMOL/L (98-107) Carbon Dioxide Level 34 MMOL/L (21-32) H Anion Gap 5 mmol/L (5-15) Blood Urea Nitrogen 16 mg/dL (7-18) Creatinine 0.9 MG/DL (0.55-1.30) Estimat Glomerular Filtration Rate > 60 mL/min (>60) Glucose Level 90 MG/DL (74-106) Calcium Level 8.7 MG/DL (8.5-10.1) General: well developed, other - Morbidly obese Head: normocophalic Neck: no rigidity EENT: benign Neurologic Exam Mental Status: awake, alert, oriented x4, normal cognition, good mathematical skills, normal recent memory, normal remote memory, preserved visuospatial function Speech: normal speech, no dysarthia Language: normal language, no aphasia Cranial Nerve II: fundus normal, visual bonilla, no papilledema Cranial Nerves III, IV, : PERRLA, EOMI, pupils Cranial Nerve V: normal facial sensations, temporales function normal, masseters function normal, pterygoids function normal Cranial Nerve VII: normal facial expressions, other Cranial Nerve VIII: normal hearing, no nystagmus Cranial Nerve IX: normal palate elevation, gag response Cranial Nerve X: no voice hoarseness Cranial Nerve XI: SCM symmetric, trapezii function normal Cranial Nerve XII: tongue midline, no tongue atrophy/fasciculations Motor System: normal muscle tone, no involuntary movement, no muscle wasting Sensory: normal pinprick, normal light touch, normal position sense, normal graphesthesia Coordination: normal heel to villarreal bilaterally, negative Romberg test Deep Tendon Reflexes: 1+ bicep (L), 1+ bicep (R), 1+ tricep (L), 1+ tricep (R) , 1+ brachioradialis (L), 1+ brachioradialis (R), 1+ knee (L), 1+ knee (R), 1+ ankle (L), 1+ ankle (R) Reflexes: flexor plantar (L), flexor plantar (R); extensor plantar (L), extensor plantar (R) Stance: other - Broad based Gait: stable Objective Left arm, predominantly hand weakness at this time. Alert and oriented Ambulatory with cellulitis persisting on BLE He does not have proximal left arm weakness at this time, mild facial weakness, tongue deviated on exam Impression/Recommendations Problems: (1) Seizures Assessment & Plan: Keppra 2000mg BID PO Maintain SBP<140 Q4 Hour Neuro Checks Ativan 2mg PRN for seizure activity CT Head w/o contrast when able to rule out CVA - also for consideration of MRI if CT negative. - low suspicion of CVA due to normotensive status without risk factors of elevated BP/ HgBA1c or thyroid dysfunction. Na 135-145 Continue pain management - Lyrica 100mg TID - Continue Gabapentin 600mg TID Intense PT recommended EEG negative for seizures, but consistent with mild encephalopathy. Same on Repeat Correct hypocalcemia (2) Morbid obesity (3) COPD (chronic obstructive pulmonary disease) (4) Uncontrolled seizures (5) Left-sided weakness Assessment & Plan: No seizure activity captured on EEG but mild to moderate degree of encephalopathy seen. Repeat EEG same as previous (6) Knee osteomyelits, right Status: stable, progressing, tolerating diet, ambulating well Recommendations Q4 hour Neuro Obs - NO NIGHTTIME OBS if stable Prevent delirium Maintain regular sleep schedule and reduce nighttime activities such as observations (if unnecessary) Maintain Keppra dose at 2g BID, no additional meds at this time. Discharge planning - declined by [facility]. Patient neurologically stable at this time for discharge Vicky Taylor N.P. Jan 12, 2019 23:39
[2019-01-13 00:32] VITALS: BP 125/64
[2019-01-13 04:00] VITALS: BP 133/67
--- NOTE | 2019-01-13 05:55 | NUR ---
NURSE NOTES: RN notified Dr. Nicole, and Dr. Dixon that PICC line was accidentally pulled, not out, flushes well and medications can be administered, cannot perform blood draws. CN was made aware.
--- NOTE | 2019-01-13 07:30 | NUR ---
NURSE NOTES: Received pt from MICAELA APPLE. pt is alert and orient x4. Pt is in RA, No SOB or acute respiratory distress noted. Pt has PICC JADE SL. pt is eating breakfast. All needs attended, bed is locked and is in the lowest position, call light within east reach. will continue to monitor.
--- NOTE | 2019-01-13 07:39 | NUR ---
HAND-OFF: Report given to Dipika HINOJOSA.
[2019-01-13 07:40] LABS: BASOPHILS % (AUTO) 0.7 % (0.0-2.0); EOSINOPHILS % (AUTO) 2.3 % (0.0-3.0); HEMATOCRIT 34.9 % (42.0-52.0); HEMOGLOBIN 11.5 G/DL (14.2-18.0); LYMPHOCYTES % (AUTO) 26.7 % (20.0-45.0); MEAN CORPUSCULAR VOLUME 92 FL (80-99); MONOCYTES % (AUTO) 7.8 % (1.0-10.0); NEUTROPHILS % (AUTO) 62.5 % (45.0-75.0); PLATELET COUNT 263 K/UL (150-450); RED BLOOD COUNT 3.78 M/UL (4.70-6.10); RED CELL DISTRIBUTION WIDTH 13.5 % (11.6-14.8); WHITE BLOOD COUNT 6.2 K/UL (4.8-10.8)
[2019-01-13 07:59] LABS: ANION GAP 4 mmol/L (5-15); BLOOD UREA NITROGEN 14 mg/dL (7-18); CALCIUM 8.8 MG/DL (8.5-10.1); CARBON DIOXIDE 35 MMOL/L (21-32); CHLORIDE 102 MMOL/L (98-107); POTASSIUM 4.7 MMOL/L (3.5-5.1); SODIUM 141 MMOL/L (136-145)
[2019-01-13 08:00] VITALS: BP 122/65
[2019-01-13] MEDS: DULoxetine 30mg cap ORAL SCH (08:18)
[2019-01-13] MEDS: Losartan 25mg tab ORAL SCH (08:18)
[2019-01-13] MEDS: Magnesium Oxide 400mg tab ORAL SCH ×3 (08:18→17:21)
[2019-01-13] MEDS: Lyrica 50mg cap ORAL SCH ×3 (08:18→17:22)
[2019-01-13] MEDS: Heparin 5000 units/ml inj SUBQ SCH ×2 (08:33→21:44)
--- NOTE | 2019-01-13 10:03 | NUR ---
NURSE NOTES: PICC line doesn't work to blood draw, Dr NAVARRO is notified and ordered to [place]. noted and carried out. will continue to monitor.
[2019-01-13] MEDS ORDERED: Cathflo Alteplase 2mg Inj INJ ONE (11:00)
--- NOTE | 2019-01-13 11:59 | Nephrology Progress Note ---
Assessment/Plan Problem List: (1) Hyponatremia (2) Morbid obesity (3) COPD (chronic obstructive pulmonary disease) Plan Mag IV as needed Mag PO TID Low Na resolved cont per consultants ? DC planning Subjective ROS Limited/Unobtainable: No Objective Objective Last 24 Hour Vital Signs Date Time Temp Pulse Resp B/P (MAP) Pulse Ox O2 Delivery O2 Flow Rate FiO2 01/13/19 09:00 Room Air 01/13/19 08:47 97.9 01/13/19 08:18 122/65 01/13/19 08:00 97.9 88 18 122/65 (84) 96 01/13/19 07:50 86 19 97 Room Air 21 01/13/19 04:00 98.2 92 20 133/67 (89) 01/13/19 00:32 98.2 82 20 125/64 (84) 01/12/19 21:27 98.0 88 20 118/63 (81) 01/12/19 21:00 Room Air 01/12/19 20:00 86 20 95 Room Air 21 01/12/19 20:00 98.0 88 20 118/63 (81) 01/12/19 16:00 98.4 81 18 111/59 (76) 95 01/12/19 12:00 97.7 104 19 155/100 (118) 91 Intake and Output 01/12/19 01/13/19 18:59 06:59 Intake Total 1200 ml 720 ml Balance 1200 ml 720 ml Other 1200 ml 720 ml # Voids 4 Laboratory Tests 01/13/19 07:23: White Blood Count 6.2, Red Blood Count 3.78L, Hemoglobin 11.5L, Hematocrit 34.9L , Mean Corpuscular Volume 92, Mean Corpuscular Hemoglobin 30.5, Mean Corpuscular Hemoglobin Concent 33.0, Red Cell Distribution Width 13.5, Platelet Count 263, Mean Platelet Volume 4.8L, Neutrophils (%) (Auto) 62.5, Lymphocytes ( %) (Auto) 26.7, Monocytes (%) (Auto) 7.8, Eosinophils (%) (Auto) 2.3, Basophils (%) (Auto) 0.7, Sodium Level 141, Potassium Level 4.7, Chloride Level 102, Carbon Dioxide Level 35H, Anion Gap 4L, Blood Urea Nitrogen 14, Creatinine 1.0, Estimat Glomerular Filtration Rate > 60, Glucose Level 89, Calcium Level 8.8 Height (Feet): 5 Height (Inches): 10.00 Weight (Pounds): 495 General Appearance: no apparent distress Objective no change Devante Taylor MD Jan 13, 2019 11:59
[2019-01-13 12:00] VITALS: BP 128/68
--- NOTE | 2019-01-13 12:51 | NUR ---
NURSE NOTES: PICC is working now, blood draw and wasted as order. will continue to monitor.
--- NOTE | 2019-01-13 13:48 | NUR ---
Social Service Note Patient referred to the following facilities: [facility] [phone] (p) [phone] (f) pending review [facility] [phone] (p) [phone] (f) pending review [facility] [phone] (p) [phone] (f) declined [facility] [phone] (p) [phone] (f) [facility] [phone] (p) [phone] (f) requested refax to [phone] [facility] [place] [phone] (p) unable to accept patient's under the age of 55 at this time. [facility] [phone] (p) [phone] (f) declined.
--- NOTE | 2019-01-13 14:12 | Infectious Diseases Prog Note ---
Assessment/Plan Assessment/Plan B/l Leg cellulitis and panniculitis - in the setting of chronic venous stasis Active infectious cellulitis essentially resolved. Now he has chronic venous stasis and neuropathic pain with poorly healing wounds. Alot off this is due to the severe swelling in his feet but also he is poorly compliant with wound care instructions. L side weakness/spasticity- thought be 2ry to seizures- r/O CVA- no active infectious process at present (pt afebrile- doubt meningitis at this moment) Afebrile No leukocytosis -CXR: No acute findings CVA HTN bipolar disorder w/ psychotic features tobacco abuse anxiety disorder chronic pain CHF seizure disorder COPD morbid obesity Dm2 HTN SNF resident Plan: - Monitor off abx as he is not septic - Needs wound care for healing. - Patient pooly compliant with leg elevation and wound dressing instruction - 01/07/19 SP IV Dapto d# 14 - 01/06/19 S/P Levofloxacin #7 - 12/25 sp Bactrim #4/14 and add IV Ancef #3/14 for cellulitis - Patient pooly compliant with leg elevation and wound dressing instruction - Monitor CBC/CMP, temperatures - aspiration precautions - wound care per hospital protocol Subjective Allergies: Coded Allergies: ASPIRIN (Verified Allergy, Unknown, 07/14/18) KETOROLAC (Verified Allergy, Unknown, 07/14/18) PENICILLINS (Verified Allergy, Unknown, 12/23/18) tolerated Ancef on 08/2018 Subjective Afebrile No leukocytosis Objective Vital Signs Last 24 Hour Vital Signs Date Time Temp Pulse Resp B/P (MAP) Pulse Ox O2 Delivery O2 Flow Rate FiO2 01/13/19 13:45 97.9 01/13/19 12:00 98.0 83 18 128/68 (88) 96 01/13/19 09:00 Room Air 01/13/19 08:18 122/65 01/13/19 08:00 97.9 88 18 122/65 (84) 96 01/13/19 07:50 86 19 97 Room Air 21 01/13/19 04:00 98.2 92 20 133/67 (89) 01/13/19 00:32 98.2 82 20 125/64 (84) 01/12/19 21:27 98.0 88 20 118/63 (81) 01/12/19 21:00 Room Air 01/12/19 20:00 86 20 95 Room Air 21 01/12/19 20:00 98.0 88 20 118/63 (81) 01/12/19 16:00 98.4 81 18 111/59 (76) 95 Height (Feet): 5 Height (Inches): 10.00 Weight (Pounds): 495 Objective GEN: NAD HEENT: NCAT, MMM Respiratory/Chest: CTAB, No W Cardiovascular: RRR, S1, S2 Abdomen: Soft, ND Ext. LE with severe edema - right leg healing well. Left still with serous drainage slowly getting better Laboratory Tests Test 01/13/19 07:23 White Blood Count 6.2 K/UL (4.8-10.8) Red Blood Count 3.78 M/UL (4.70-6.10) L Hemoglobin 11.5 G/DL (14.2-18.0) L Hematocrit 34.9 % (42.0-52.0) L Mean Corpuscular Volume 92 FL (80-99) Mean Corpuscular Hemoglobin 30.5 PG (27.0-31.0) Mean Corpuscular Hemoglobin Concent 33.0 G/DL (32.0-36.0) Red Cell Distribution Width 13.5 % (11.6-14.8) Platelet Count 263 K/UL (150-450) Mean Platelet Volume 4.8 FL (6.5-10.1) L Neutrophils (%) (Auto) 62.5 % (45.0-75.0) Lymphocytes (%) (Auto) 26.7 % (20.0-45.0) Monocytes (%) (Auto) 7.8 % (1.0-10.0) Eosinophils (%) (Auto) 2.3 % (0.0-3.0) Basophils (%) (Auto) 0.7 % (0.0-2.0) Sodium Level 141 MMOL/L (136-145) Potassium Level 4.7 MMOL/L (3.5-5.1) Chloride Level 102 MMOL/L (98-107) Carbon Dioxide Level 35 MMOL/L (21-32) H Anion Gap 4 mmol/L (5-15) L Blood Urea Nitrogen 14 mg/dL (7-18) Creatinine 1.0 MG/DL (0.55-1.30) Estimat Glomerular Filtration Rate > 60 mL/min (>60) Glucose Level 89 MG/DL (74-106) Calcium Level 8.8 MG/DL (8.5-10.1) Current Medications Medications (Trade) Dose Ordered Sig/Luis Route PRN Reason Start Time Stop Time Status Last Admin Dose Admin Acetaminophen (Tylenol) 650 mg Q4H PRN ORAL fever 12/15/18 14:54 01/14/19 14:53 Albuterol/ Ipratropium (Albuterol/ Ipratropium) 3 ml Q4H PRN HHN Shortness of Breath 01/09/19 16:30 01/14/19 16:29 Atorvastatin Calcium (Lipitor) 80 mg BEDTIME ORAL 12/15/18 21:00 01/14/19 20:59 01/12/19 19:53 Chlorhexidine Gluconate (Ruby-Hex 2%) 1 applic DAILY@2000 TOPIC 12/22/18 20:00 01/21/19 19:59 01/11/19 20:07 Clonidine HCl (Catapres Tab) 0.1 mg Q4H PRN ORAL For High Blood Pressure 12/15/18 14:56 01/14/19 14:55 Clopidogrel Bisulfate (Plavix) 75 mg DAILY ORAL 12/16/18 09:00 01/14/19 08:59 01/13/19 08:18 Dextrose (Dextrose 50%) 25 ml Q30M PRN IV Hypoglycemia 12/15/18 15:15 01/13/19 23:44 Dextrose (Dextrose 50%) 50 ml Q30M PRN IV Hypoglycemia 12/15/18 15:15 01/13/19 23:44 Duloxetine HCl (Cymbalta) 30 mg DAILY ORAL 12/16/18 09:00 01/14/19 08:59 01/13/19 08:18 Furosemide (Lasix) 20 mg Q12HR IV 01/09/19 21:00 01/21/19 00:00 01/12/19 09:21 Gabapentin (Neurontin) 600 mg THREE TIMES A DAY ORAL 12/15/18 18:00 01/14/19 08:59 01/13/19 13:53 Heparin Sodium (Porcine) (Heparin 5000 units/ml) 5,000 units EVERY 12 HOURS SUBQ 12/15/18 21:00 01/14/19 08:59 01/13/19 08:33 Hydromorphone HCl (Dilaudid) 4 mg Q4H PRN IVP For Pain 01/08/19 13:28 01/15/19 13:27 01/13/19 13:15 Levetiracetam (Keppra) 2,000 mg Q12HR ORAL 01/01/19 21:00 01/18/19 08:59 01/13/19 08:19 Lorazepam (Ativan 2mg/ml 1ml) 2 mg Q4H PRN IV For Anxiety 01/07/19 18:30 01/14/19 18:29 Losartan Potassium (Cozaar) 25 mg DAILY ORAL 12/29/18 13:45 01/28/19 13:44 01/13/19 08:18 Magnesium Oxide (Mag-Ox 400mg) 800 mg THREE TIMES A DAY ORAL 01/02/19 18:00 02/01/19 17:59 01/13/19 13:53 Nitroglycerin (Ntg) 0.4 mg Q5M X 3 DOSES PRN SL Prn Chest Pain 12/15/18 14:45 01/13/19 23:44 01/02/19 11:59 Ondansetron HCl (Zofran) 4 mg Q6H PRN IVP Nausea & Vomiting 12/15/18 14:55 01/14/19 14:54 12/17/18 10:19 Polyethylene Glycol (Miralax) 17 gm HSPRN PRN ORAL Constipation 12/15/18 14:55 01/14/19 14:54 Pregabalin (Lyrica) 100 mg THREE TIMES A DAY ORAL 12/26/18 09:00 01/19/19 22:59 01/13/19 13:55 Promethazine HCl/ Codeine (Phenergan with Codeine) 5 ml Q4H PRN ORAL For Cough 12/28/18 12:00 01/27/19 11:59 01/01/19 01:34 Trazodone HCl (Desyrel) 100 mg BEDTIME ORAL 12/15/18 21:00 01/14/19 20:59 01/12/19 19:53 Elliot Chauhan MD Jan 13, 2019 14:12
--- NOTE | 2019-01-13 14:47 | Pulmonology Progress Note ---
Assessment/Plan Problems: (1) COPD (chronic obstructive pulmonary disease) (2) Peripheral edema (3) Morbid obesity (4) Cellulitis (5) Seizures (6) Cerebrovascular accident (7) Left-sided weakness (8) Right heart failure (9) Lumbar spondylosis (10) ADALBERTO (obstructive sleep apnea) Assessment/Plan all meds /notes reviewed pt/ot increase dialudid to 4 mg and add Methadone 10Q8 respiratory treatment titrate fio2 to sat of 92% dvt prophylaxis Subjective ROS Limited/Unobtainable: No Constitutional: Reports: no symptoms HEENT: Repors: no symptoms Respiratory: Reports: no symptoms Allergies: Coded Allergies: ASPIRIN (Verified Allergy, Unknown, 07/14/18) KETOROLAC (Verified Allergy, Unknown, 07/14/18) PENICILLINS (Verified Allergy, Unknown, 12/23/18) tolerated Ancef on 08/2018 Objective Last 24 Hour Vital Signs Date Time Temp Pulse Resp B/P (MAP) Pulse Ox O2 Delivery O2 Flow Rate FiO2 01/13/19 13:45 97.9 01/13/19 12:00 98.0 83 18 128/68 (88) 96 01/13/19 09:00 Room Air 01/13/19 08:18 122/65 01/13/19 08:00 97.9 88 18 122/65 (84) 96 01/13/19 07:50 86 19 97 Room Air 21 01/13/19 04:00 98.2 92 20 133/67 (89) 01/13/19 00:32 98.2 82 20 125/64 (84) 01/12/19 21:27 98.0 88 20 118/63 (81) 01/12/19 21:00 Room Air 01/12/19 20:00 86 20 95 Room Air 21 01/12/19 20:00 98.0 88 20 118/63 (81) 01/12/19 16:00 98.4 81 18 111/59 (76) 95 Intake and Output 01/12/19 01/13/19 18:59 06:59 Intake Total 1200 ml 720 ml Balance 1200 ml 720 ml Other 1200 ml 720 ml # Voids 4 Objective HEENT: normocephalic, atraumatic Respiratory/Chest: chest wall non-tender, lungs clear Cardiovascular: normal peripheral pulses, normal rate Abdomen: normal bowel sounds, no organomegaly, massive fat on abdomen Extremities: no cyanosis Skin: no lesions Laboratory Tests 01/13/19 07:23: White Blood Count 6.2, Red Blood Count 3.78L, Hemoglobin 11.5L, Hematocrit 34.9L , Mean Corpuscular Volume 92, Mean Corpuscular Hemoglobin 30.5, Mean Corpuscular Hemoglobin Concent 33.0, Red Cell Distribution Width 13.5, Platelet Count 263, Mean Platelet Volume 4.8L, Neutrophils (%) (Auto) 62.5, Lymphocytes ( %) (Auto) 26.7, Monocytes (%) (Auto) 7.8, Eosinophils (%) (Auto) 2.3, Basophils (%) (Auto) 0.7, Sodium Level 141, Potassium Level 4.7, Chloride Level 102, Carbon Dioxide Level 35H, Anion Gap 4L, Blood Urea Nitrogen 14, Creatinine 1.0, Estimat Glomerular Filtration Rate > 60, Glucose Level 89, Calcium Level 8.8 Current Medications Medications (Trade) Dose Ordered Sig/Luis Route PRN Reason Start Time Stop Time Status Last Admin Dose Admin Acetaminophen (Tylenol) 650 mg Q4H PRN ORAL fever 12/15/18 14:54 01/14/19 14:53 Albuterol/ Ipratropium (Albuterol/ Ipratropium) 3 ml Q4H PRN HHN Shortness of Breath 01/09/19 16:30 01/14/19 16:29 Atorvastatin Calcium (Lipitor) 80 mg BEDTIME ORAL 12/15/18 21:00 01/14/19 20:59 01/12/19 19:53 Chlorhexidine Gluconate (Ruby-Hex 2%) 1 applic DAILY@1999 TOPIC 12/22/18 20:00 01/21/19 19:59 01/11/19 20:07 Clonidine HCl (Catapres Tab) 0.1 mg Q4H PRN ORAL For High Blood Pressure 12/15/18 14:56 01/14/19 14:55 Clopidogrel Bisulfate (Plavix) 75 mg DAILY ORAL 12/16/18 09:00 01/14/19 08:59 01/13/19 08:18 Dextrose (Dextrose 50%) 25 ml Q30M PRN IV Hypoglycemia 12/15/18 15:15 01/13/19 23:44 Dextrose (Dextrose 50%) 50 ml Q30M PRN IV Hypoglycemia 12/15/18 15:15 01/13/19 23:44 Duloxetine HCl (Cymbalta) 30 mg DAILY ORAL 12/16/18 09:00 01/14/19 08:59 01/13/19 08:18 Furosemide (Lasix) 20 mg Q12HR IV 01/09/19 21:00 01/21/19 00:00 01/12/19 09:21 Gabapentin (Neurontin) 600 mg THREE TIMES A DAY ORAL 12/15/18 18:00 01/14/19 08:59 01/13/19 13:53 Heparin Sodium (Porcine) (Heparin 5000 units/ml) 5,000 units EVERY 12 HOURS SUBQ 12/15/18 21:00 01/14/19 08:59 01/13/19 08:33 Hydromorphone HCl (Dilaudid) 4 mg Q4H PRN IVP For Pain 01/08/19 13:28 01/15/19 13:27 01/13/19 13:15 Levetiracetam (Keppra) 2,000 mg Q12HR ORAL 01/01/19 21:00 01/18/19 08:59 01/13/19 08:19 Lorazepam (Ativan 2mg/ml 1ml) 2 mg Q4H PRN IV For Anxiety 01/07/19 18:30 01/14/19 18:29 Losartan Potassium (Cozaar) 25 mg DAILY ORAL 12/29/18 13:45 01/28/19 13:44 01/13/19 08:18 Magnesium Oxide (Mag-Ox 400mg) 800 mg THREE TIMES A DAY ORAL 01/02/19 18:00 02/01/19 17:59 01/13/19 13:53 Nitroglycerin (Ntg) 0.4 mg Q5M X 3 DOSES PRN SL Prn Chest Pain 12/15/18 14:45 01/13/19 23:44 01/02/19 11:59 Ondansetron HCl (Zofran) 4 mg Q6H PRN IVP Nausea & Vomiting 12/15/18 14:55 01/14/19 14:54 12/17/18 10:19 Polyethylene Glycol (Miralax) 17 gm HSPRN PRN ORAL Constipation 12/15/18 14:55 01/14/19 14:54 Pregabalin (Lyrica) 100 mg THREE TIMES A DAY ORAL 12/26/18 09:00 01/19/19 22:59 01/13/19 13:55 Promethazine HCl/ Codeine (Phenergan with Codeine) 5 ml Q4H PRN ORAL For Cough 12/28/18 12:00 01/27/19 11:59 01/01/19 01:34 Trazodone HCl (Desyrel) 100 mg BEDTIME ORAL 12/15/18 21:00 01/14/19 20:59 01/12/19 19:53 Bill Dixon MD Jan 13, 2019 14:47
--- NOTE | 2019-01-13 14:58 | General Progress Note ---
Assessment/Plan Problem List: (1) Abdominal pannus ICD Codes: E65 - Localized adiposity SNOMED: 1626703070364 (2) Peripheral edema ICD Codes: R60.9 - Edema, unspecified SNOMED: 036184964 (3) Abdominal wall cellulitis ICD Codes: L03.311 - Cellulitis of abdominal wall SNOMED: 49109748 (4) Leg pain ICD Codes: M79.606 - Pain in leg, unspecified SNOMED: 52391081 (5) COPD (chronic obstructive pulmonary disease) ICD Codes: J44.9 - Chronic obstructive pulmonary disease, unspecified SNOMED: 46601177 (6) Seizures ICD Codes: R56.9 - Unspecified convulsions SNOMED: 65220182 (7) Morbid obesity ICD Codes: E66.01 - Morbid (severe) obesity due to excess calories SNOMED: 276039653 (8) Cerebrovascular accident ICD Codes: I63.9 - Cerebral infarction, unspecified SNOMED: 481190809 (9) Left-sided weakness ICD Codes: R53.1 - Weakness SNOMED: 597235106 Status: stable, progressing Assessment/Plan: pt diet neuro f/u wound care abx pain control cbc bmp am dc to snf if clear Subjective Constitutional: Reports: weakness Allergies: Coded Allergies: ASPIRIN (Verified Allergy, Unknown, 07/14/18) KETOROLAC (Verified Allergy, Unknown, 07/14/18) PENICILLINS (Verified Allergy, Unknown, 12/23/18) tolerated Ancef on 08/2018 All Systems: reviewed and negative except above Subjective sleepy calm Objective Last 24 Hour Vital Signs Date Time Temp Pulse Resp B/P (MAP) Pulse Ox O2 Delivery O2 Flow Rate FiO2 01/13/19 13:45 97.9 01/13/19 12:00 98.0 83 18 128/68 (88) 96 01/13/19 09:00 Room Air 01/13/19 08:18 122/65 01/13/19 08:00 97.9 88 18 122/65 (84) 96 01/13/19 07:50 86 19 97 Room Air 21 01/13/19 04:00 98.2 92 20 133/67 (89) 01/13/19 00:32 98.2 82 20 125/64 (84) 01/12/19 21:27 98.0 88 20 118/63 (81) 01/12/19 21:00 Room Air 01/12/19 20:00 86 20 95 Room Air 21 01/12/19 20:00 98.0 88 20 118/63 (81) 01/12/19 16:00 98.4 81 18 111/59 (76) 95 Intake and Output 01/12/19 01/13/19 18:59 06:59 Intake Total 1200 ml 720 ml Balance 1200 ml 720 ml Other 1200 ml 720 ml # Voids 4 Laboratory Tests 01/13/19 07:23: White Blood Count 6.2, Red Blood Count 3.78L, Hemoglobin 11.5L, Hematocrit 34.9L , Mean Corpuscular Volume 92, Mean Corpuscular Hemoglobin 30.5, Mean Corpuscular Hemoglobin Concent 33.0, Red Cell Distribution Width 13.5, Platelet Count 263, Mean Platelet Volume 4.8L, Neutrophils (%) (Auto) 62.5, Lymphocytes ( %) (Auto) 26.7, Monocytes (%) (Auto) 7.8, Eosinophils (%) (Auto) 2.3, Basophils (%) (Auto) 0.7, Sodium Level 141, Potassium Level 4.7, Chloride Level 102, Carbon Dioxide Level 35H, Anion Gap 4L, Blood Urea Nitrogen 14, Creatinine 1.0, Estimat Glomerular Filtration Rate > 60, Glucose Level 89, Calcium Level 8.8 Height (Feet): 5 Height (Inches): 10.00 Weight (Pounds): 495 General Appearance: lethargic EENT: normal ENT inspection Neck: normal alignment Cardiovascular: normal peripheral pulses, normal rate, regular rhythm Respiratory/Chest: chest wall non-tender, lungs clear, normal breath sounds Abdomen: normal bowel sounds, soft, distended Extremities: normal inspection Edema: 1+ Arm (L), 1+ Arm (R), 1+ Leg (L), 1+ Leg (R), 1+ Pedal (L), 1+ Pedal ( R), 1+ Generalized Edema: trace edema Neurologic: responsive, motor weakness Skin: normal pigmentation, warm/dry Objective bl' villarreal dressing c&d Ernesto Nicole DO Jan 13, 2019 14:58
--- NOTE | 2019-01-13 15:44 | NUR ---
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 PERIPHERAL EDEMA T 98 HR 83 RR 18 B/P 128/68 SATS 96% ON RA CO2 35 IS:DILAUDID 4mg GABAPENTIN 600mg LYRICA 100mg MAGNESIUM OXIDE 800mg METHADONE 15mg HEPARIN SUBQ PLAVIX 75mg CYMBALTA 30mg COZAAR 25mg KEPPRA 2000mg LASIX 20mg IV MED/SURG STATUS
[2019-01-13 16:00] VITALS: BP 118/60
--- NOTE | 2019-01-13 18:45 | Progress Note ---
DATE: 01/13/2019 SUBJECTIVE: This is a 53-year-old male patient, rule out CVA. This patient continues to have some mood lability, confusion, disorganized, and decline in cognition below baseline that is why, her attending physician has requested daily psychiatric consultation. MENTAL STATUS EXAMINATION: The patient is a 53-year-old male. Appearance is anxious. Attitude, irritable and agitated. Affect is guarded and restricted. Intellect poor. Mood depressed and anxious. Motor activity, psychomotor agitation. Attention span is poor. Orientation x2. Speech is pressured. Thought process is disorganized and illogical. Insight and judgment is poor. DIAGNOSIS: Major depressive disorder, mild, recurrent, without psychotic features. PLAN: Treat him with Neurontin 600 mg three times a day, and trazodone 100 mg at bedtime, Cymbalta 30 mg daily. Provide him with 20 minutes of reality-based supportive psychotherapy. Chart reviewed. Discussed with staff. Seen and assessed in his room. Laney Mcghee M.D. DR: Doretha JOB#: [id number] CC:
--- NOTE | 2019-01-13 19:42 | NUR ---
HAND-OFF: Report given to MICAELA EMRCADO.
--- NOTE | 2019-01-13 19:51 | NUR ---
NURSE NOTES: Received report from MICAELA Bar. Patient is awake having a bowel movement in the bathroom. No signs of acute distress noted; complains of pain. AOx4; able to make needs known. Ambulates independently with some supervision. Checked right upper arm PICC; patent and flushed. No erythema, bleeding, or infiltration noted. Dressing on bilateral legs intact. Bed at lowest position, brakes on, siderails up x3. Call light within reach.
[2019-01-13 20:00] VITALS: BP 126/72
[2019-01-13] MEDS: Dyna-Hex 2% Top Sol 2oz TOPIC SCH (21:42)
[2019-01-13] MEDS: TraZODone 100mg tab ORAL SCH (21:43)
[2019-01-13] MEDS: Atorvastatin 80mg tab ORAL SCH (21:43)
[2019-01-14] VITALS (7 sets, daily range): BP systolic 103–147; BP diastolic 61–84
--- NOTE | 2019-01-14 03:47 | NUR ---
NURSE NOTES: Patient is asleep lying semi-jerome's; resting comfortably. No signs of acute distress or pain noted at this time.
--- NOTE | 2019-01-14 05:13 | NUR ---
NURSE NOTES: Patient refuses to have his siderails padded for seizure precautions at this time. Risks and benefits explained x3; still adamantly refusing.
[2019-01-14 06:25] LABS: BASOPHILS % (AUTO) 0.8 % (0.0-2.0); EOSINOPHILS % (AUTO) 3.2 % (0.0-3.0); HEMATOCRIT 33.9 % (42.0-52.0); HEMOGLOBIN 11.1 G/DL (14.2-18.0); LYMPHOCYTES % (AUTO) 30.8 % (20.0-45.0); MEAN CORPUSCULAR VOLUME 92 FL (80-99); MONOCYTES % (AUTO) 7.8 % (1.0-10.0); NEUTROPHILS % (AUTO) 57.5 % (45.0-75.0); PLATELET COUNT 254 K/UL (150-450); RED CELL DISTRIBUTION WIDTH 13.4 % (11.6-14.8); WHITE BLOOD COUNT 5.8 K/UL (4.8-10.8)
[2019-01-14 06:45] LABS: ANION GAP 6 mmol/L (5-15); BLOOD UREA NITROGEN 16 mg/dL (7-18); CALCIUM 8.8 MG/DL (8.5-10.1); CARBON DIOXIDE 34 MMOL/L (21-32); CHLORIDE 104 MMOL/L (98-107); POTASSIUM 4.7 MMOL/L (3.5-5.1); SODIUM 144 MMOL/L (136-145)
--- NOTE | 2019-01-14 07:35 | NUR ---
HAND-OFF: Report given to MICAELA Peoples. Patient is awake lying semi-jerome's; resting comfortably. In stable condition.
--- NOTE | 2019-01-14 08:01 | NUR ---
NURSE NOTES: Patient is awake and alert and oriented,respirations are unlabored. o2 on at 2 L N/C Patient ate breakfast,no complaints at this time.Call light within reach.
[2019-01-14] MEDS: Losartan 25mg tab ORAL SCH (09:00)
[2019-01-14] MEDS: Lyrica 50mg cap ORAL SCH ×3 (09:01→18:06)
[2019-01-14] MEDS: Magnesium Oxide 400mg tab ORAL SCH ×3 (09:02→18:12)
--- NOTE | 2019-01-14 10:49 | NUR ---
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 PERIPHERAL EDEMA VS: BP 147/84, P 100, T 97.7, RR 20, SpO2 93 RBC 3.70, H&H 11.1/33.9, CO2 34 IS:DILAUDID 4mg LYRICA 100mg KEPPRA 2,000mg COZAAR 25mg DESYREL 100mg MED/SURG STATUS
--- NOTE | 2019-01-14 11:03 | Infectious Diseases Prog Note ---
Assessment/Plan Assessment/Plan B/l Leg cellulitis and panniculitis - in the setting of chronic venous stasis Active infectious cellulitis essentially resolved. Now he has chronic venous stasis and neuropathic pain with poorly healing wounds. Alot off this is due to the severe swelling in his feet but also he is poorly compliant with wound care instructions. L side weakness/spasticity- thought be 2ry to seizures- r/O CVA- no active infectious process at present (pt afebrile- doubt meningitis at this moment) Afebrile No leukocytosis -CXR: No acute findings CVA HTN bipolar disorder w/ psychotic features tobacco abuse anxiety disorder chronic pain CHF seizure disorder COPD morbid obesity Dm2 HTN SNF resident Plan: - Monitor off abx as he is not septic - Needs wound care for healing. - Patient more compliant with leg elevation and wound dressing instructions - 01/07/19 SP IV Dapto d# 14 - 01/06/19 S/P Levofloxacin #7 - 12/25 sp Bactrim #4/14 and add IV Ancef #3/14 for cellulitis - Monitor CBC/CMP, temperatures - aspiration precautions - wound care per hospital protocol Subjective Allergies: Coded Allergies: ASPIRIN (Verified Allergy, Unknown, 07/14/18) KETOROLAC (Verified Allergy, Unknown, 07/14/18) PENICILLINS (Verified Allergy, Unknown, 12/23/18) tolerated Ancef on 08/2018 Subjective JANEE Afebrile No leukocytosis Objective Vital Signs Last 24 Hour Vital Signs Date Time Temp Pulse Resp B/P (MAP) Pulse Ox O2 Delivery O2 Flow Rate FiO2 01/14/19 09:06 Room Air 01/14/19 09:00 147/84 01/14/19 08:51 97.7 100 18 147/84 (105) 95 01/14/19 08:23 98 18 98 Room Air 21 01/14/19 04:00 97.8 87 16 144/71 (95) 98 01/14/19 00:00 97.9 91 20 140/74 (96) 93 01/13/19 21:00 Room Air 01/13/19 20:01 87 20 96 Room Air 21 01/13/19 20:00 97.7 82 20 126/72 (90) 99 01/13/19 17:52 98.1 01/13/19 16:00 98.1 80 20 118/60 (79) 95 01/13/19 12:00 98.0 83 18 128/68 (88) 96 Height (Feet): 5 Height (Inches): 10.00 Weight (Pounds): 495 Objective GEN: NAD, Satting well HEENT: NCAT, MMM Respiratory/Chest: CTAB, No W Cardiovascular: RRR, S1, S2 Abdomen: Soft, ND Ext. LE with severe edema - right leg healing well. Left still with serous drainage slowly getting better Laboratory Tests Test 01/14/19 05:30 White Blood Count 5.8 K/UL (4.8-10.8) Red Blood Count 3.70 M/UL (4.70-6.10) L Hemoglobin 11.1 G/DL (14.2-18.0) L Hematocrit 33.9 % (42.0-52.0) L Mean Corpuscular Volume 92 FL (80-99) Mean Corpuscular Hemoglobin 30.0 PG (27.0-31.0) Mean Corpuscular Hemoglobin Concent 32.7 G/DL (32.0-36.0) Red Cell Distribution Width 13.4 % (11.6-14.8) Platelet Count 254 K/UL (150-450) Mean Platelet Volume 5.0 FL (6.5-10.1) L Neutrophils (%) (Auto) 57.5 % (45.0-75.0) Lymphocytes (%) (Auto) 30.8 % (20.0-45.0) Monocytes (%) (Auto) 7.8 % (1.0-10.0) Eosinophils (%) (Auto) 3.2 % (0.0-3.0) H Basophils (%) (Auto) 0.8 % (0.0-2.0) Sodium Level 144 MMOL/L (136-145) Potassium Level 4.7 MMOL/L (3.5-5.1) Chloride Level 104 MMOL/L (98-107) Carbon Dioxide Level 34 MMOL/L (21-32) H Anion Gap 6 mmol/L (5-15) Blood Urea Nitrogen 16 mg/dL (7-18) Creatinine 1.0 MG/DL (0.55-1.30) Estimat Glomerular Filtration Rate > 60 mL/min (>60) Glucose Level 94 MG/DL (74-106) Calcium Level 8.8 MG/DL (8.5-10.1) Current Medications Medications (Trade) Dose Ordered Sig/Luis Route PRN Reason Start Time Stop Time Status Last Admin Dose Admin Acetaminophen (Tylenol) 650 mg Q4H PRN ORAL fever 12/15/18 14:54 01/14/19 14:53 Albuterol/ Ipratropium (Albuterol/ Ipratropium) 3 ml Q4H PRN HHN Shortness of Breath 01/09/19 16:30 01/14/19 16:29 Atorvastatin Calcium (Lipitor) 80 mg BEDTIME ORAL 12/15/18 21:00 01/14/19 20:59 01/13/19 21:43 Chlorhexidine Gluconate (Ruby-Hex 2%) 1 applic DAILY@1999 TOPIC 12/22/18 20:00 01/21/19 19:59 01/13/19 21:42 Clonidine HCl (Catapres Tab) 0.1 mg Q4H PRN ORAL For High Blood Pressure 12/15/18 14:56 01/14/19 14:55 Furosemide (Lasix) 20 mg Q12HR IV 01/09/19 21:00 01/21/19 00:00 01/12/19 09:21 Hydromorphone HCl (Dilaudid) 4 mg Q4H PRN IVP For Pain 01/08/19 13:28 01/15/19 13:27 01/14/19 10:24 Levetiracetam (Keppra) 2,000 mg Q12HR ORAL 01/01/19 21:00 01/18/19 08:59 01/14/19 09:01 Lorazepam (Ativan 2mg/ml 1ml) 2 mg Q4H PRN IV For Anxiety 01/07/19 18:30 01/14/19 18:29 Losartan Potassium (Cozaar) 25 mg DAILY ORAL 12/29/18 13:45 01/28/19 13:44 01/14/19 09:00 Magnesium Oxide (Mag-Ox 400mg) 800 mg THREE TIMES A DAY ORAL 01/02/19 18:00 02/01/19 17:59 01/14/19 09:02 Ondansetron HCl (Zofran) 4 mg Q6H PRN IVP Nausea & Vomiting 12/15/18 14:55 01/14/19 14:54 12/17/18 10:19 Polyethylene Glycol (Miralax) 17 gm HSPRN PRN ORAL Constipation 12/15/18 14:55 01/14/19 14:54 Pregabalin (Lyrica) 100 mg THREE TIMES A DAY ORAL 12/26/18 09:00 01/19/19 22:59 01/14/19 09:01 Promethazine HCl/ Codeine (Phenergan with Codeine) 5 ml Q4H PRN ORAL For Cough 12/28/18 12:00 01/27/19 11:59 01/01/19 01:34 Trazodone HCl (Desyrel) 100 mg BEDTIME ORAL 12/15/18 21:00 01/14/19 20:59 01/13/19 21:43 Elliot Chauhan MD Jan 14, 2019 11:03
--- NOTE | 2019-01-14 11:43 | General Progress Note ---
Assessment/Plan Problem List: (1) Abdominal pannus ICD Codes: E65 - Localized adiposity SNOMED: 4927259732043 (2) Peripheral edema ICD Codes: R60.9 - Edema, unspecified SNOMED: 995352274 (3) Abdominal wall cellulitis ICD Codes: L03.311 - Cellulitis of abdominal wall SNOMED: 93290108 (4) Leg pain ICD Codes: M79.606 - Pain in leg, unspecified SNOMED: 14214553 (5) COPD (chronic obstructive pulmonary disease) ICD Codes: J44.9 - Chronic obstructive pulmonary disease, unspecified SNOMED: 27792987 (6) Seizures ICD Codes: R56.9 - Unspecified convulsions SNOMED: 75456456 (7) Morbid obesity ICD Codes: E66.01 - Morbid (severe) obesity due to excess calories SNOMED: 791979394 (8) Cerebrovascular accident ICD Codes: I63.9 - Cerebral infarction, unspecified SNOMED: 918373231 (9) Left-sided weakness ICD Codes: R53.1 - Weakness SNOMED: 759469750 Status: stable, progressing Assessment/Plan: pt diet neuro f/u wound care abx pain control dc to snf if clear Subjective Constitutional: Reports: weakness Allergies: Coded Allergies: ASPIRIN (Verified Allergy, Unknown, 07/14/18) KETOROLAC (Verified Allergy, Unknown, 07/14/18) PENICILLINS (Verified Allergy, Unknown, 12/23/18) tolerated Ancef on 08/2018 All Systems: reviewed and negative except above Subjective sleepy calm Objective Last 24 Hour Vital Signs Date Time Temp Pulse Resp B/P (MAP) Pulse Ox O2 Delivery O2 Flow Rate FiO2 01/14/19 09:06 Room Air 01/14/19 09:00 147/84 01/14/19 08:51 97.7 100 18 147/84 (105) 95 01/14/19 08:23 98 18 98 Room Air 21 01/14/19 04:00 97.8 87 16 144/71 (95) 98 01/14/19 00:00 97.9 91 20 140/74 (96) 93 01/13/19 21:00 Room Air 01/13/19 20:01 87 20 96 Room Air 21 01/13/19 20:00 97.7 82 20 126/72 (90) 99 01/13/19 17:52 98.1 01/13/19 16:00 98.1 80 20 118/60 (79) 95 01/13/19 12:00 98.0 83 18 128/68 (88) 96 Intake and Output 01/13/19 01/14/19 18:59 06:59 Intake Total 1260 ml 620 ml Balance 1260 ml 620 ml Intake Oral 1260 ml 620 ml # Voids 4 3 # Bowel Movements 1 2 Laboratory Tests 01/14/19 05:30: White Blood Count 5.8, Red Blood Count 3.70L, Hemoglobin 11.1L, Hematocrit 33.9L , Mean Corpuscular Volume 92, Mean Corpuscular Hemoglobin 30.0, Mean Corpuscular Hemoglobin Concent 32.7, Red Cell Distribution Width 13.4, Platelet Count 254, Mean Platelet Volume 5.0L, Neutrophils (%) (Auto) 57.5, Lymphocytes ( %) (Auto) 30.8, Monocytes (%) (Auto) 7.8, Eosinophils (%) (Auto) 3.2H, Basophils (%) (Auto) 0.8, Sodium Level 144, Potassium Level 4.7, Chloride Level 104, Carbon Dioxide Level 34H, Anion Gap 6, Blood Urea Nitrogen 16, Creatinine 1.0, Estimat Glomerular Filtration Rate > 60, Glucose Level 94, Calcium Level 8.8 Height (Feet): 5 Height (Inches): 10.00 Weight (Pounds): 495 General Appearance: lethargic EENT: normal ENT inspection Neck: normal alignment Cardiovascular: normal peripheral pulses, normal rate, regular rhythm Respiratory/Chest: chest wall non-tender, lungs clear, normal breath sounds Abdomen: normal bowel sounds, soft, distended Extremities: normal inspection Edema: 1+ Arm (L), 1+ Arm (R), 1+ Leg (L), 1+ Leg (R), 1+ Pedal (L), 1+ Pedal ( R), 1+ Generalized Edema: trace edema Neurologic: responsive, motor weakness Skin: normal pigmentation, warm/dry Objective bl' villarreal dressing c&d Ernesto Nicole DO Jan 14, 2019 11:43
--- NOTE | 2019-01-14 11:48 | NUR ---
PT NOTE Attempted to see patient for PT treatment. Patient declining to participate at this time due to c/o pain BLEs, requests that therapist return tomorrow. Richelle HINOJOSA notified, will follow up tomorrow per patient request.
--- NOTE | 2019-01-14 12:58 | Pulmonology Progress Note ---
Assessment/Plan Problems: (1) COPD (chronic obstructive pulmonary disease) (2) Peripheral edema (3) Morbid obesity (4) Cellulitis (5) Seizures (6) Cerebrovascular accident (7) Left-sided weakness (8) Right heart failure (9) Lumbar spondylosis (10) ADALBERTO (obstructive sleep apnea) Assessment/Plan cough much better all meds /notes reviewed pt/ot on dialudid to 4 mg and add Methadone 10Q8 respiratory treatment titrate fio2 to sat of 92% dvt prophylaxis Subjective ROS Limited/Unobtainable: No Constitutional: Reports: no symptoms HEENT: Repors: no symptoms Respiratory: Reports: no symptoms Allergies: Coded Allergies: ASPIRIN (Verified Allergy, Unknown, 07/14/18) KETOROLAC (Verified Allergy, Unknown, 07/14/18) PENICILLINS (Verified Allergy, Unknown, 12/23/18) tolerated Ancef on 08/2018 Objective Last 24 Hour Vital Signs Date Time Temp Pulse Resp B/P (MAP) Pulse Ox O2 Delivery O2 Flow Rate FiO2 01/14/19 12:00 98.6 89 19 103/65 (78) 98 01/14/19 09:06 Room Air 01/14/19 09:00 147/84 01/14/19 08:51 97.7 100 18 147/84 (105) 95 01/14/19 08:23 98 18 98 Room Air 21 01/14/19 04:00 97.8 87 16 144/71 (95) 98 01/14/19 00:00 97.9 91 20 140/74 (96) 93 01/13/19 21:00 Room Air 01/13/19 20:01 87 20 96 Room Air 21 01/13/19 20:00 97.7 82 20 126/72 (90) 99 01/13/19 17:52 98.1 01/13/19 16:00 98.1 80 20 118/60 (79) 95 Intake and Output 01/13/19 01/14/19 18:59 06:59 Intake Total 1260 ml 620 ml Balance 1260 ml 620 ml Intake Oral 1260 ml 620 ml # Voids 4 3 # Bowel Movements 1 2 Objective HEENT: normocephalic, atraumatic Respiratory/Chest: chest wall non-tender, lungs clear Cardiovascular: normal peripheral pulses, normal rate Abdomen: normal bowel sounds, no organomegaly, massive fat on abdomen Extremities: no cyanosis Skin: no lesions Laboratory Tests 01/14/19 05:30: White Blood Count 5.8, Red Blood Count 3.70L, Hemoglobin 11.1L, Hematocrit 33.9L , Mean Corpuscular Volume 92, Mean Corpuscular Hemoglobin 30.0, Mean Corpuscular Hemoglobin Concent 32.7, Red Cell Distribution Width 13.4, Platelet Count 254, Mean Platelet Volume 5.0L, Neutrophils (%) (Auto) 57.5, Lymphocytes ( %) (Auto) 30.8, Monocytes (%) (Auto) 7.8, Eosinophils (%) (Auto) 3.2H, Basophils (%) (Auto) 0.8, Sodium Level 144, Potassium Level 4.7, Chloride Level 104, Carbon Dioxide Level 34H, Anion Gap 6, Blood Urea Nitrogen 16, Creatinine 1.0, Estimat Glomerular Filtration Rate > 60, Glucose Level 94, Calcium Level 8.8 Current Medications Medications (Trade) Dose Ordered Sig/Luis Route PRN Reason Start Time Stop Time Status Last Admin Dose Admin Acetaminophen (Tylenol) 650 mg Q4H PRN ORAL fever 12/15/18 14:54 01/14/19 14:53 Albuterol/ Ipratropium (Albuterol/ Ipratropium) 3 ml Q4H PRN HHN Shortness of Breath 01/09/19 16:30 01/14/19 16:29 Atorvastatin Calcium (Lipitor) 80 mg BEDTIME ORAL 12/15/18 21:00 01/14/19 20:59 01/13/19 21:43 Chlorhexidine Gluconate (Ruby-Hex 2%) 1 applic DAILY@1999 TOPIC 12/22/18 20:00 01/21/19 19:59 01/13/19 21:42 Clonidine HCl (Catapres Tab) 0.1 mg Q4H PRN ORAL For High Blood Pressure 12/15/18 14:56 01/14/19 14:55 Furosemide (Lasix) 20 mg Q12HR IV 01/09/19 21:00 01/21/19 00:00 01/12/19 09:21 Hydromorphone HCl (Dilaudid) 4 mg Q4H PRN IVP For Pain 01/08/19 13:28 01/15/19 13:27 01/14/19 10:24 Levetiracetam (Keppra) 2,000 mg Q12HR ORAL 01/01/19 21:00 01/18/19 08:59 01/14/19 09:01 Lorazepam (Ativan 2mg/ml 1ml) 2 mg Q4H PRN IV For Anxiety 01/07/19 18:30 01/14/19 18:29 Losartan Potassium (Cozaar) 25 mg DAILY ORAL 12/29/18 13:45 01/28/19 13:44 01/14/19 09:00 Magnesium Oxide (Mag-Ox 400mg) 800 mg THREE TIMES A DAY ORAL 01/02/19 18:00 02/01/19 17:59 01/14/19 09:02 Ondansetron HCl (Zofran) 4 mg Q6H PRN IVP Nausea & Vomiting 12/15/18 14:55 01/14/19 14:54 12/17/18 10:19 Polyethylene Glycol (Miralax) 17 gm HSPRN PRN ORAL Constipation 12/15/18 14:55 01/14/19 14:54 Pregabalin (Lyrica) 100 mg THREE TIMES A DAY ORAL 12/26/18 09:00 01/19/19 22:59 01/14/19 09:01 Promethazine HCl/ Codeine (Phenergan with Codeine) 5 ml Q4H PRN ORAL For Cough 12/28/18 12:00 01/27/19 11:59 01/01/19 01:34 Trazodone HCl (Desyrel) 100 mg BEDTIME ORAL 12/15/18 21:00 01/14/19 20:59 01/13/19 21:43 Bill Dixon MD Jan 14, 2019 12:58
--- NOTE | 2019-01-14 14:36 | Nephrology Progress Note ---
Assessment/Plan Problem List: (1) Hyponatremia (2) Morbid obesity (3) COPD (chronic obstructive pulmonary disease) Plan Mag IV as needed Mag PO TID Low Na resolved cont per consultants ? DC planning Subjective ROS Limited/Unobtainable: No Constitutional: Reports: malaise Objective Objective Last 24 Hour Vital Signs Date Time Temp Pulse Resp B/P (MAP) Pulse Ox O2 Delivery O2 Flow Rate FiO2 01/14/19 12:00 98.6 89 19 103/65 (78) 98 01/14/19 09:06 Room Air 01/14/19 09:00 147/84 01/14/19 08:51 97.7 100 18 147/84 (105) 95 01/14/19 08:23 98 18 98 Room Air 21 01/14/19 04:00 97.8 87 16 144/71 (95) 98 01/14/19 00:00 97.9 91 20 140/74 (96) 93 01/13/19 21:00 Room Air 01/13/19 20:01 87 20 96 Room Air 21 01/13/19 20:00 97.7 82 20 126/72 (90) 99 01/13/19 17:52 98.1 01/13/19 16:00 98.1 80 20 118/60 (79) 95 Intake and Output 01/13/19 01/14/19 18:59 06:59 Intake Total 1260 ml 620 ml Balance 1260 ml 620 ml Intake Oral 1260 ml 620 ml # Voids 4 3 # Bowel Movements 1 2 Laboratory Tests 01/14/19 05:30: White Blood Count 5.8, Red Blood Count 3.70L, Hemoglobin 11.1L, Hematocrit 33.9L , Mean Corpuscular Volume 92, Mean Corpuscular Hemoglobin 30.0, Mean Corpuscular Hemoglobin Concent 32.7, Red Cell Distribution Width 13.4, Platelet Count 254, Mean Platelet Volume 5.0L, Neutrophils (%) (Auto) 57.5, Lymphocytes ( %) (Auto) 30.8, Monocytes (%) (Auto) 7.8, Eosinophils (%) (Auto) 3.2H, Basophils (%) (Auto) 0.8, Sodium Level 144, Potassium Level 4.7, Chloride Level 104, Carbon Dioxide Level 34H, Anion Gap 6, Blood Urea Nitrogen 16, Creatinine 1.0, Estimat Glomerular Filtration Rate > 60, Glucose Level 94, Calcium Level 8.8 Height (Feet): 5 Height (Inches): 10.00 Weight (Pounds): 495 General Appearance: no apparent distress Objective no change Devante Taylor MD Jan 14, 2019 14:36
--- NOTE | 2019-01-14 18:00 | Progress Note ---
DATE: 01/14/2019 SUBJECTIVE: This is a 53-year-old male patient. He is confused, disorganized. He has got mood lability, decline in cognition below his baseline that is why attending physician has requested daily psychiatric consultation. He still has a lot of mood lability and anxiety secondary to his medical illnesses, syncope, respiratory insufficiency. MENTAL STATUS EXAMINATION: This is a 53-year-old male. Appearance is disheveled. Attitude, irritable and agitated. Affect, guarded and restricted. Intellect poor. Mood, depressed and anxious. Motor activity, psychomotor agitation. Attention span is poor. Orientation x2. Speech is pressured. Thought process, disorganized and illogical. Insight and judgment are poor. DIAGNOSIS: Major depressive disorder, mild, recurrent without psychotic features. PLAN: Treat him with Cymbalta 30 mg daily, Neurontin 600 mg three times a day, trazodone 100 mg at bedtime. Provide him with 20 minutes of cognitive behavioral therapy to help him identify his automatic negative thoughts, help him convert his negative thoughts to more positive thoughts to reduce depression, anxiety, and mood lability. Chart reviewed. Discussed with staff. Seen and assessed in his room. A 20 minutes of reality based supportive psychotherapy provided. Laney Mcghee M.D. DR: Doretha JOB#: [id number] CC:
--- NOTE | 2019-01-14 19:25 | NUR ---
HAND-OFF: Report given to Linh HINOJOSA.
--- NOTE | 2019-01-14 20:00 | NUR ---
NURSE NOTES: Received patient in bed, awake, alert, oriented x4, ambulatory, no acute distress noted, VSS.febrile. Call light is within reach, bed is in low position, locked, alarm is on. Will continue to monitor for safety and comfort.
[2019-01-14] MEDS: Dyna-Hex 2% Top Sol 2oz TOPIC SCH (20:58)
[2019-01-15] VITALS: BP 133/55
--- NOTE | 2019-01-15 03:15 | Progress Note ---
DATE: 01/14/2019 NOTE: POOR AUDIO PSYCHOTHERAPY CONSULTATION PROGRESS NOTE TREATING ATTENDING: Ernesto Nicole D.O. SUBJECTIVE: . The patient today is anxious, still waiting to hear if he is going back to the nursing facility. He states that he has a pending procedure . MENTAL STATUS EXAMINATION: The patient is alert and oriented to time and situation. His mood is slightly anxious. Affect is congruent. Thought process, he has fair attention and concentration. Fair insight, judgment, and impulse control. cognitive behavioral therapy. . The patient has been very cooperative and communicates positive feelings of anxiety. 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 This clinician has reviewed the patient's chart and discussed treatment with treatment team. Liu Jackman PsyD. DR: SURENDRA JOB#: [id number] CC:
[2019-01-15 04:00] VITALS: BP 122/65
--- NOTE | 2019-01-15 07:31 | NUR ---
HAND-OFF: Report given to Kenna HINOJOSA.
--- NOTE | 2019-01-15 07:40 | NUR ---
NURSE NOTES: Report received from Jamilah HINOJOSA, rounds made. Patient sitting at bedside, eating breakfast. Alert, oriented x4, calm. Denies pain, SOB, NV. O2 3LNC. Right PICC line, double lumen noted, dressing CDI. LLE dressing CDI. Skin warm, BLE swelling, redness, able to wiggle, no NT. Patient positions self. Call light in reach, bed in lowest position, will continue to monitor.
[2019-01-15 08:00] VITALS: BP 163/95
[2019-01-15] MEDS: Magnesium Oxide 400mg tab ORAL SCH ×3 (10:55→18:57)
[2019-01-15] MEDS: Losartan 25mg tab ORAL SCH (10:56)
[2019-01-15] MEDS: Lyrica 50mg cap ORAL SCH ×3 (11:06→18:58)
[2019-01-15 12:00] VITALS: BP 148/80
--- NOTE | 2019-01-15 12:27 | Infectious Diseases Prog Note ---
Assessment/Plan Assessment/Plan B/l Leg cellulitis and panniculitis - in the setting of chronic venous stasis Active infectious cellulitis essentially resolved. Now he has chronic venous stasis and neuropathic pain with poorly healing wounds. Alot off this is due to the severe swelling in his feet but also he is poorly compliant with wound care instructions. L side weakness/spasticity- thought be 2ry to seizures- r/O CVA- no active infectious process at present (pt afebrile- doubt meningitis at this moment) Afebrile No leukocytosis -CXR: No acute findings CVA HTN bipolar disorder w/ psychotic features tobacco abuse anxiety disorder chronic pain CHF seizure disorder COPD morbid obesity Dm2 HTN SNF resident Plan: - Monitor off abx - Needs wound care for healing. - Patient more compliant with leg elevation and wound dressing instructions - 01/07/19 SP IV Dapto d# 14 - 01/06/19 S/P Levofloxacin #7 - 12/25 sp Bactrim #4/14 and add IV Ancef #3/14 for cellulitis - Monitor CBC/CMP, temperatures - aspiration precautions - wound care per hospital protocol Subjective Allergies: Coded Allergies: ASPIRIN (Verified Allergy, Unknown, 07/14/18) KETOROLAC (Verified Allergy, Unknown, 07/14/18) PENICILLINS (Verified Allergy, Unknown, 12/23/18) tolerated Ancef on 08/2018 Subjective Afebrile No leukocytosis Objective Vital Signs Last 24 Hour Vital Signs Date Time Temp Pulse Resp B/P (MAP) Pulse Ox O2 Delivery O2 Flow Rate FiO2 01/15/19 10:56 122/65 01/15/19 04:00 98.2 83 21 122/65 (84) 01/15/19 00:00 98.1 85 20 133/55 (81) 01/14/19 21:08 98.7 87 20 141/61 (87) 01/14/19 21:00 Room Air Room Air 01/14/19 20:00 98.7 87 20 141/61 (87) 01/14/19 19:20 98.8 01/14/19 16:00 98.8 91 18 108/68 (81) 98 Height (Feet): 5 Height (Inches): 10.00 Weight (Pounds): 495 Objective GEN: NAD HEENT: NCAT, MMM Respiratory/Chest: CTAB, No W Cardiovascular: RRR, S1, S2 Abdomen: Soft, ND Ext. LE with severe edema - right leg healing well. Left still with serous drainage slowly getting better Current Medications Medications (Trade) Dose Ordered Sig/Luis Route PRN Reason Start Time Stop Time Status Last Admin Dose Admin Chlorhexidine Gluconate (Ruby-Hex 2%) 1 applic DAILY@2000 TOPIC 12/22/18 20:00 01/21/19 19:59 01/14/19 20:58 Furosemide (Lasix) 20 mg Q12HR IV 01/09/19 21:00 01/21/19 00:00 01/12/19 09:21 Hydromorphone HCl (Dilaudid) 4 mg Q4H PRN IVP For Pain 01/08/19 13:28 01/15/19 13:27 01/15/19 11:05 Levetiracetam (Keppra) 2,000 mg Q12HR ORAL 01/01/19 21:00 01/18/19 08:59 01/15/19 10:55 Losartan Potassium (Cozaar) 25 mg DAILY ORAL 12/29/18 13:45 01/28/19 13:44 01/15/19 10:56 Magnesium Oxide (Mag-Ox 400mg) 800 mg THREE TIMES A DAY ORAL 01/02/19 18:00 02/01/19 17:59 01/15/19 10:55 Pregabalin (Lyrica) 100 mg THREE TIMES A DAY ORAL 12/26/18 09:00 01/19/19 22:59 01/15/19 11:06 Promethazine HCl/ Codeine (Phenergan with Codeine) 5 ml Q4H PRN ORAL For Cough 12/28/18 12:00 01/27/19 11:59 01/01/19 01:34 Elliot Chauhan MD Jan 15, 2019 12:27
--- NOTE | 2019-01-15 12:39 | General Progress Note ---
Assessment/Plan Problem List: (1) Abdominal pannus ICD Codes: E65 - Localized adiposity SNOMED: 7934050196116 (2) Peripheral edema ICD Codes: R60.9 - Edema, unspecified SNOMED: 120860195 (3) Abdominal wall cellulitis ICD Codes: L03.311 - Cellulitis of abdominal wall SNOMED: 37926079 (4) Leg pain ICD Codes: M79.606 - Pain in leg, unspecified SNOMED: 15178770 (5) COPD (chronic obstructive pulmonary disease) ICD Codes: J44.9 - Chronic obstructive pulmonary disease, unspecified SNOMED: 42894701 (6) Seizures ICD Codes: R56.9 - Unspecified convulsions SNOMED: 22821912 (7) Morbid obesity ICD Codes: E66.01 - Morbid (severe) obesity due to excess calories SNOMED: 797888638 (8) Cerebrovascular accident ICD Codes: I63.9 - Cerebral infarction, unspecified SNOMED: 696358564 (9) Left-sided weakness ICD Codes: R53.1 - Weakness SNOMED: 779474704 Status: stable, progressing Assessment/Plan: pt diet neuro f/u wound care abx pain control cbc bmp am dc to snf if clear Subjective Constitutional: Reports: weakness Allergies: Coded Allergies: ASPIRIN (Verified Allergy, Unknown, 07/14/18) KETOROLAC (Verified Allergy, Unknown, 07/14/18) PENICILLINS (Verified Allergy, Unknown, 12/23/18) tolerated Ancef on 08/2018 All Systems: reviewed and negative except above Subjective eating calm Objective Last 24 Hour Vital Signs Date Time Temp Pulse Resp B/P (MAP) Pulse Ox O2 Delivery O2 Flow Rate FiO2 01/15/19 10:56 122/65 01/15/19 04:00 98.2 83 21 122/65 (84) 01/15/19 00:00 98.1 85 20 133/55 (81) 01/14/19 21:08 98.7 87 20 141/61 (87) 01/14/19 21:00 Room Air Room Air 01/14/19 20:00 98.7 87 20 141/61 (87) 01/14/19 19:20 98.8 01/14/19 16:00 98.8 91 18 108/68 (81) 98 Intake and Output 01/14/19 01/15/19 19:00 07:00 Intake Total 1880 ml Balance 1880 ml Intake Oral 1880 ml # Voids 5 # Bowel Movements 2 1 Height (Feet): 5 Height (Inches): 10.00 Weight (Pounds): 495 General Appearance: alert EENT: normal ENT inspection Neck: normal alignment Cardiovascular: normal peripheral pulses, normal rate, regular rhythm Respiratory/Chest: chest wall non-tender, lungs clear, normal breath sounds Abdomen: normal bowel sounds, soft, distended Extremities: normal inspection Edema: 1+ Arm (L), 1+ Arm (R), 1+ Leg (L), 1+ Leg (R), 1+ Pedal (L), 1+ Pedal ( R), 1+ Generalized Edema: trace edema Neurologic: responsive, motor weakness Skin: normal pigmentation, warm/dry Objective bl' villarreal dressing c&d Ernesto Nicole DO Jan 15, 2019 12:39
--- NOTE | 2019-01-15 13:07 | Pulmonology Progress Note ---
Assessment/Plan Problems: (1) COPD (chronic obstructive pulmonary disease) (2) Peripheral edema (3) Morbid obesity (4) Cellulitis (5) Seizures (6) Cerebrovascular accident (7) Left-sided weakness (8) Right heart failure (9) Lumbar spondylosis (10) ADALBERTO (obstructive sleep apnea) Assessment/Plan cough much better all meds /notes reviewed pt/ot on dialudid to 4 mg and add Methadone 10Q8 respiratory treatment titrate fio2 to sat of 92% dvt prophylaxis Subjective ROS Limited/Unobtainable: No Allergies: Coded Allergies: ASPIRIN (Verified Allergy, Unknown, 07/14/18) KETOROLAC (Verified Allergy, Unknown, 07/14/18) PENICILLINS (Verified Allergy, Unknown, 12/23/18) tolerated Ancef on 08/2018 Objective Last 24 Hour Vital Signs Date Time Temp Pulse Resp B/P (MAP) Pulse Ox O2 Delivery O2 Flow Rate FiO2 01/15/19 12:00 98.8 91 19 148/80 (102) 93 01/15/19 10:56 122/65 01/15/19 09:00 Room Air Room Air 01/15/19 08:00 97.8 91 19 163/95 (117) 96 01/15/19 04:00 98.2 83 21 122/65 (84) 01/15/19 00:00 98.1 85 20 133/55 (81) 01/14/19 21:08 98.7 87 20 141/61 (87) 01/14/19 21:00 Room Air Room Air 01/14/19 20:00 98.7 87 20 141/61 (87) 01/14/19 19:20 98.8 01/14/19 16:00 98.8 91 18 108/68 (81) 98 Intake and Output 01/14/19 01/15/19 19:00 07:00 Intake Total 1880 ml Balance 1880 ml Intake Oral 1880 ml # Voids 5 # Bowel Movements 2 1 Objective HEENT: normocephalic, atraumatic Respiratory/Chest: chest wall non-tender, lungs clear Cardiovascular: normal peripheral pulses, normal rate Abdomen: normal bowel sounds, no organomegaly, massive fat on abdomen Extremities: no cyanosis Skin: no lesions Current Medications Medications (Trade) Dose Ordered Sig/Luis Route PRN Reason Start Time Stop Time Status Last Admin Dose Admin Chlorhexidine Gluconate (Ruby-Hex 2%) 1 applic DAILY@2000 TOPIC 12/22/18 20:00 01/21/19 19:59 01/14/19 20:58 Furosemide (Lasix) 20 mg Q12HR IV 01/09/19 21:00 01/21/19 00:00 01/12/19 09:21 Hydromorphone HCl (Dilaudid) 4 mg Q4H PRN IVP For Pain 01/08/19 13:28 01/15/19 13:27 01/15/19 11:05 Levetiracetam (Keppra) 2,000 mg Q12HR ORAL 01/01/19 21:00 01/18/19 08:59 01/15/19 10:55 Losartan Potassium (Cozaar) 25 mg DAILY ORAL 12/29/18 13:45 01/28/19 13:44 01/15/19 10:56 Magnesium Oxide (Mag-Ox 400mg) 800 mg THREE TIMES A DAY ORAL 01/02/19 18:00 02/01/19 17:59 01/15/19 10:55 Pregabalin (Lyrica) 100 mg THREE TIMES A DAY ORAL 12/26/18 09:00 01/19/19 22:59 01/15/19 11:06 Promethazine HCl/ Codeine (Phenergan with Codeine) 5 ml Q4H PRN ORAL For Cough 12/28/18 12:00 01/27/19 11:59 01/01/19 01:34 Bill Dixon MD Jan 15, 2019 13:07
--- NOTE | 2019-01-15 14:29 | NUR ---
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 PERIPHERAL EDEMA VS: BP 163/95, P 91, T 98.8, RR 21, SpO2 93 NO LABS TODAY IS:LYRICA 100mg DILAUDID 4mg IVP COZAAR 25mg KEPPRA 2,000mg MAGNESIUM OXIDE 800mg PATIENT IS AWAITING PLACEMENT MED/SURG STATUS
--- NOTE | 2019-01-15 14:50 | NUR ---
NURSE NOTES: LLE dressing changed as ordered. Extra supplies provided to patient (xeroform, ABD pads, tape clear and paper, kerlix). LLE edematous, tight, skin warm, reddened, open blisters noted. Applied xeroform, ABD pad, wrapped with kerlix and secured with paper tape. Will continue to monitor.
--- NOTE | 2019-01-15 15:54 | Nephrology Progress Note ---
Assessment/Plan Problem List: (1) Hyponatremia (2) Morbid obesity (3) COPD (chronic obstructive pulmonary disease) Plan Mag IV as needed Mag PO TID Low Na resolved cont per consultants ? DC planning Subjective ROS Limited/Unobtainable: No Constitutional: Reports: malaise Objective Objective Last 24 Hour Vital Signs Date Time Temp Pulse Resp B/P (MAP) Pulse Ox O2 Delivery O2 Flow Rate FiO2 01/15/19 12:00 98.8 91 19 148/80 (102) 93 01/15/19 10:56 122/65 01/15/19 09:00 Room Air Room Air 01/15/19 08:00 97.8 91 19 163/95 (117) 96 01/15/19 04:00 98.2 83 21 122/65 (84) 01/15/19 00:00 98.1 85 20 133/55 (81) 01/14/19 21:08 98.7 87 20 141/61 (87) 01/14/19 21:00 Room Air Room Air 01/14/19 20:00 98.7 87 20 141/61 (87) 01/14/19 19:20 98.8 01/14/19 16:00 98.8 91 18 108/68 (81) 98 Intake and Output 01/14/19 01/15/19 18:59 06:59 Intake Total 1880 ml Balance 1880 ml Intake Oral 1880 ml # Voids 5 # Bowel Movements 2 1 Height (Feet): 5 Height (Inches): 10.00 Weight (Pounds): 495 General Appearance: no apparent distress Objective no change Devante Taylor MD Jan 15, 2019 15:54
[2019-01-15 16:00] VITALS: BP 145/82
--- NOTE | 2019-01-15 16:53 | NUR ---
DISCHARGE PLANNING PATIENT WAS DENIED AT: [facility]: T [phone], F [phone] CANT ACCEPT PATIENT BECAUSE OF WEIGHT AND PENDING SURGERY. [facility]: P [phone], F [phone] THEY SIMPLY SAID NO [facility]: P [phone], P [phone] SAID NO BECAUSE OF THE PATIENTS AGE. WILL CONTINUE FINDING PLACEMENT FOR PATIENT.
--- NOTE | 2019-01-15 19:30 | NUR ---
HAND-OFF: Report given to Kirsty RN.
[2019-01-15] MEDS: Dyna-Hex 2% Top Sol 2oz TOPIC SCH (19:54)
[2019-01-15 20:00] VITALS: BP 153/96
--- NOTE | 2019-01-15 20:00 | NUR ---
NURSE NOTES: RECEIVED PT FROM MICAELA HARPER. PT IS AWAKE, AAOX4, ON NC 3L, C/O PAIN 10/10 ON LEFT LEG. PICC LINE ON UPPER RIGHT ARM NOTED, ONE OF THE LUMENS IS OCCLUDED, THE OTHER ONE IS FLUSHING WELL BUT NO BLOOD RETURNS, AWARE. DRESSING NEEDS TO BE CHANGE BUT PT REFUSED. DRESSING ON LEFT LEG IS INTACT AND DRY. PROVIDED PT WITH TEACHING AND SUPPLIES FOR DRESSING CHANGE, PT WANTS TO CHANGE HIS OWN DRESSINGS. BED IS LOCKED AT THE LOWEST POSITION, BED ALARMS ACTIVE, SIDE RAILS UP X2, PT REFUSED TO HAVE PADDED SIDE RAILS FOR SEIZURE PRECAUTION. CALL LIGHT IS WITHIN REACH. WILL CONTINUE TO MONITOR. Addendum: 01/16/19 at 0312 by Kirsty Cornell RN PICC LINE dressing needs to be change but pt refused.
--- NOTE | 2019-01-15 22:45 | Progress Note ---
DATE: 01/15/2019 SUBJECTIVE: This is a 53-year-old male patient with cerebrovascular accident, but this patient continues to have some depression and anxiety, mood lability, worsened by stress of his medical illness. He is still very irritable and agitated, has high levels of anxiety his medical illness. this patient to rule out CVA, but also the patient has COPD, obesity, seizure disorder, and so he still has some mood lability, confusion, and disorganized thought process. MENTAL STATUS EXAMINATION: This is a 53-year-old male. Appearance is disheveled. Attitude, irritable and agitated. Affect, guarded and restricted. Intellect poor. Mood, depressed and anxious. Motor activity, psychomotor agitation. Attention span is poor. Orientation x2. Speech is low volume, slurred. Thought process, disorganized and illogical. Insight and judgment are poor. DIAGNOSIS: Major depressive disorder, severe, recurrent, without psychotic features, rule out generalized anxiety disorder. PLAN: This patient treated with Ativan 2 mg IV q.4 hours p.r.n. anxiety and agitation and also on trazodone 100 mg at bedtime. throughout the hospital course and to continue to be followed by Psychiatry with orders trazodone and Ativan for now and 20 minutes of cognitive behavioral therapy to help him identify his automatic negative thoughts, help him convert his negative thoughts to more positive thoughts to reduce depression, anxiety, and mood lability. Chart reviewed. Discussed with staff. Seen and assessed at in his bedside. Laney Mcghee M.D. DR: GUTIERREZ JOB#: [id number] CC:
[2019-01-16] VITALS (7 sets, daily range): BP systolic 113–170; BP diastolic 67–87
--- NOTE | 2019-01-16 05:46 | NUR ---
NURSE NOTES: CHANGED PICC LINE DRESSING.
[2019-01-16 06:43] LABS: ALANINE AMINOTRANSFERASE 21 U/L (12-78); ALBUMIN 2.9 G/DL (3.4-5.0); ALBUMIN/GLOBULIN RATIO 0.7 (1.0-2.7); ALKALINE PHOSPHATASE 129 U/L (46-116); ANION GAP 1 mmol/L (5-15); ASPARTATE AMINO TRANSFERASE 27 U/L (15-37); BILIRUBIN,TOTAL 0.3 MG/DL (0.2-1.0); BLOOD UREA NITROGEN 12 mg/dL (7-18); CALCIUM 8.7 MG/DL (8.5-10.1); CARBON DIOXIDE 36 MMOL/L (21-32); CHLORIDE 103 MMOL/L (98-107); PHOSPHORUS 4.1 MG/DL (2.5-4.9); POTASSIUM 4.8 MMOL/L (3.5-5.1); SODIUM 140 MMOL/L (136-145)
--- NOTE | 2019-01-16 07:30 | NUR ---
HAND-OFF: Report given to MICAELA HARO.
--- NOTE | 2019-01-16 07:41 | General Progress Note ---
Assessment/Plan Problem List: (1) Abdominal pannus ICD Codes: E65 - Localized adiposity SNOMED: 8680200737653 (2) Peripheral edema ICD Codes: R60.9 - Edema, unspecified SNOMED: 051432602 (3) Abdominal wall cellulitis ICD Codes: L03.311 - Cellulitis of abdominal wall SNOMED: 02087824 (4) Leg pain ICD Codes: M79.606 - Pain in leg, unspecified SNOMED: 43071074 (5) COPD (chronic obstructive pulmonary disease) ICD Codes: J44.9 - Chronic obstructive pulmonary disease, unspecified SNOMED: 89338242 (6) Seizures ICD Codes: R56.9 - Unspecified convulsions SNOMED: 97718405 (7) Morbid obesity ICD Codes: E66.01 - Morbid (severe) obesity due to excess calories SNOMED: 485761641 (8) Cerebrovascular accident ICD Codes: I63.9 - Cerebral infarction, unspecified SNOMED: 782975632 (9) Left-sided weakness ICD Codes: R53.1 - Weakness SNOMED: 833913146 Status: stable, progressing Assessment/Plan: pt diet neuro f/u wound care abx pain control dc to snf if clear Subjective Constitutional: Reports: weakness Allergies: Coded Allergies: ASPIRIN (Verified Allergy, Unknown, 07/14/18) KETOROLAC (Verified Allergy, Unknown, 07/14/18) PENICILLINS (Verified Allergy, Unknown, 12/23/18) tolerated Ancef on 08/2018 All Systems: reviewed and negative except above Subjective sleepy calm Objective Last 24 Hour Vital Signs Date Time Temp Pulse Resp B/P (MAP) Pulse Ox O2 Delivery O2 Flow Rate FiO2 01/16/19 04:00 97.0 90 19 153/87 (109) 97 01/16/19 00:00 98.9 95 18 115/68 (84) 98 01/15/19 21:00 Room Air Room Air 01/15/19 20:00 98.2 78 18 153/96 (115) 98 01/15/19 16:00 98.6 83 19 145/82 (103) 95 01/15/19 14:50 Room Air Room Air 01/15/19 12:00 98.8 91 19 148/80 (102) 93 01/15/19 10:56 122/65 01/15/19 09:00 Room Air Room Air 01/15/19 08:00 97.8 91 19 163/95 (117) 96 Intake and Output 01/15/19 01/16/19 18:59 06:59 Intake Total 1422 ml Balance 1422 ml Intake Oral 1422 ml # Voids 3 4 Laboratory Tests 01/16/19 06:12: Sodium Level 140, Potassium Level 4.8, Chloride Level 103, Carbon Dioxide Level 36H, Anion Gap 1L, Blood Urea Nitrogen 12, Creatinine 1.0, Estimat Glomerular Filtration Rate > 60, Glucose Level 93, Uric Acid 6.0, Calcium Level 8.7, Phosphorus Level 4.1, Magnesium Level 2.2, Total Bilirubin 0.3, Aspartate Amino Transf (AST/SGOT) 27, Alanine Aminotransferase (ALT/SGPT) 21, Alkaline Phosphatase 129H, C-Reactive Protein, Quantitative 3.1H, Pro-B-Type Natriuretic Peptide 462H, Total Protein 6.8, Albumin 2.9L, Globulin 3.9, Albumin/Globulin Ratio 0.7L Height (Feet): 5 Height (Inches): 10.00 Weight (Pounds): 495 General Appearance: lethargic EENT: normal ENT inspection Neck: normal alignment Cardiovascular: normal peripheral pulses, normal rate, regular rhythm Respiratory/Chest: chest wall non-tender, lungs clear, normal breath sounds Abdomen: normal bowel sounds, soft, distended Extremities: normal inspection Edema: 1+ Arm (L), 1+ Arm (R), 1+ Leg (L), 1+ Leg (R), 1+ Pedal (L), 1+ Pedal ( R), 1+ Generalized Edema: trace edema Neurologic: motor weakness Skin: normal pigmentation, warm/dry Objective bl' villarreal dressing c&d Ernesto Nicole DO Jan 16, 2019 07:41
--- NOTE | 2019-01-16 07:45 | Progress Note ---
DATE: 01/16/2019 SUBJECTIVE: This is a 53-year-old male patient, rule out cerebrovascular accident. He continues to have some confusion and disorganized thought process, decline in cognition below his baseline that is why the attending has requested daily psychiatric consultation. DIAGNOSIS: Major depressive disorder, mild, recurrent. PLAN: Continue to treat this patient's depression and anxiety. Provided him with 20 minutes of cognitive behavioral therapy to help him identify his automatic negative thoughts, help him convert his negative thoughts to more positive thoughts to reduce depression, anxiety, and mood lability. Chart was reviewed. Discussed with staff. Laney Mcghee M.D. DR: Doretha JOB#: [id number] CC:
--- NOTE | 2019-01-16 07:48 | NUR ---
NURSE NOTES: Received report from Kirsty RN. Pt sitting at edge of bed, talkative, asking for pain meds at 0815, discussed plan of care with pt, dressing to left lower extremity clean and dry, SpO2 obtained by SN, 89%, discussed with pt to put on NC at 3L per order, pt refused at this time stating "I have COPD." Pt got up ambulated to bathroom, bed in lowest position, call light within reach.
[2019-01-16] MEDS: Losartan 25mg tab ORAL SCH (08:16)
[2019-01-16] MEDS: Magnesium Oxide 400mg tab ORAL SCH ×3 (08:17→17:18)
[2019-01-16] MEDS: Lyrica 50mg cap ORAL SCH ×3 (08:17→17:19)
--- NOTE | 2019-01-16 09:36 | NUR ---
PT NOTE: Pt seated on EOB. Pt refused to participate in PT treatment session due to not sleeping well last night and not feeling well. Pt educated on the importance of performing therapeutic exercises for ease of performing functional ADLs. Pt continued to refuse PT. Nurse call light left within easy reach. Notified nurse.
--- NOTE | 2019-01-16 11:31 | Nephrology Progress Note ---
Assessment/Plan Problem List: (1) Hyponatremia (2) Morbid obesity (3) COPD (chronic obstructive pulmonary disease) Plan Mag IV as needed Mag PO TID Low Na resolved cont per consultants ? DC planning Subjective ROS Limited/Unobtainable: No Constitutional: Reports: malaise Objective Objective Last 24 Hour Vital Signs Date Time Temp Pulse Resp B/P (MAP) Pulse Ox O2 Delivery O2 Flow Rate FiO2 01/16/19 09:00 Room Air Room Air 01/16/19 08:16 113/67 01/16/19 08:00 98.2 95 17 113/67 (82) 97 01/16/19 04:00 97.0 90 19 153/87 (109) 97 01/16/19 00:00 98.9 95 18 115/68 (84) 98 01/15/19 21:00 Room Air Room Air 01/15/19 20:00 98.2 78 18 153/96 (115) 98 01/15/19 16:00 98.6 83 19 145/82 (103) 95 01/15/19 14:50 Room Air Room Air 01/15/19 12:00 98.8 91 19 148/80 (102) 93 Intake and Output 01/15/19 01/16/19 19:00 07:00 Intake Total 1422 ml Balance 1422 ml Intake Oral 1422 ml # Voids 3 4 Laboratory Tests 01/16/19 06:12: Sodium Level 140, Potassium Level 4.8, Chloride Level 103, Carbon Dioxide Level 36H, Anion Gap 1L, Blood Urea Nitrogen 12, Creatinine 1.0, Estimat Glomerular Filtration Rate > 60, Glucose Level 93, Uric Acid 6.0, Calcium Level 8.7, Phosphorus Level 4.1, Magnesium Level 2.2, Total Bilirubin 0.3, Aspartate Amino Transf (AST/SGOT) 27, Alanine Aminotransferase (ALT/SGPT) 21, Alkaline Phosphatase 129H, C-Reactive Protein, Quantitative 3.1H, Pro-B-Type Natriuretic Peptide 462H, Total Protein 6.8, Albumin 2.9L, Globulin 3.9, Albumin/Globulin Ratio 0.7L Height (Feet): 5 Height (Inches): 10.00 Weight (Pounds): 495 General Appearance: no apparent distress Objective no change Devante Taylor MD Jan 16, 2019 11:31
[2019-01-16] MEDS ORDERED: Cathflo Alteplase 2mg Inj INJ ONE (12:00)
[2019-01-16] MEDS ORDERED: Lidocaine 1% Plain 30 ml INJ PRN (14:22)
[2019-01-16] MEDS ORDERED: Heparin1,000 units/500ml Premix(Conc:2 units/ml) IV PRN (14:22)
--- NOTE | 2019-01-16 14:30 | NUR ---
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 PERIPHERAL EDEMA T 97 HR 90 RR 19 B/P 153/87 SATS 97% ON RA CO2 36 ALP 129 BNP 462 IS:LYRICA 100mg DILAUDID 4mg IVP COZAAR 25mg KEPPRA 2,000mg MAGNESIUM OXIDE 800mg PATIENT IS AWAITING PLACEMENT MED/SURG STATUS
--- NOTE | 2019-01-16 16:00 | NUR ---
NURSE NOTES: Notified Dr. Dixon BP 170-74, HR 89. Asked if he would like to order PRN medications for HTN
--- NOTE | 2019-01-16 19:09 | NUR ---
HAND-OFF: Report given to Kirsty, RN, Pt stable.
--- NOTE | 2019-01-16 19:10 | NUR ---
NURSE NOTES: RECEIVED PT FROM MICAELA HARO. PT IS AWAKE, AAOX4, ON NC 3L, C/O PAIN 10/10 ON BILATERAL LEGS, AND BACK. PICC LINE ON RIGHT UPPER ARM NOTED, DRESSING IS INTACT BUT BOTH LUMEN ARE OCCLUDED. IV ON LEFT HAND 24G IS INTACT AND PATENT. BED IS LOCKED AT THE LOWEST POSITION, BED ALARM ACTIVE, SIDE RAILS UP X2 AND CALL LIGHT IS WITHIN REACH. WILL CONTINUE TO MONITOR.
[2019-01-16] MEDS: Dyna-Hex 2% Top Sol 2oz TOPIC SCH (20:18)
--- NOTE | 2019-01-16 21:40 | Neurology Progress Note ---
Interim History Interim History ROS Limited/Unobtainable: No Complaints: Seizures/ Weakness Events: This visit was performed on January 16, [address] Amador Brewster Interim History Still awaiting D/C - neurologically stable May now be awaiting planned surgery as inpatient. Review of Systems All Systems: reviewed and negative except above Objective Physical Exam Last Vital Signs Date Time Temp Pulse Resp B/P (MAP) Pulse Ox O2 Delivery O2 Flow Rate FiO2 01/16/19 17:11 138/77 (97) 01/16/19 16:48 98.4 01/16/19 15:45 89 20 95 01/16/19 09:00 Room Air Room Air 01/14/19 08:23 21 Laboratory Tests Test 01/16/19 06:12 Sodium Level 140 MMOL/L (136-145) Potassium Level 4.8 MMOL/L (3.5-5.1) Chloride Level 103 MMOL/L (98-107) Carbon Dioxide Level 36 MMOL/L (21-32) H Anion Gap 1 mmol/L (5-15) L Blood Urea Nitrogen 12 mg/dL (7-18) Creatinine 1.0 MG/DL (0.55-1.30) Estimat Glomerular Filtration Rate > 60 mL/min (>60) Glucose Level 93 MG/DL (74-106) Uric Acid 6.0 MG/DL (2.6-7.2) Calcium Level 8.7 MG/DL (8.5-10.1) Phosphorus Level 4.1 MG/DL (2.5-4.9) Magnesium Level 2.2 MG/DL (1.8-2.4) Total Bilirubin 0.3 MG/DL (0.2-1.0) Aspartate Amino Transf (AST/SGOT) 27 U/L (15-37) Alanine Aminotransferase (ALT/SGPT) 21 U/L (12-78) Alkaline Phosphatase 129 U/L (46-116) H C-Reactive Protein, Quantitative 3.1 mg/dL (0.00-0.90) H Pro-B-Type Natriuretic Peptide 462 pg/mL (0-125) H Total Protein 6.8 G/DL (6.4-8.2) Albumin 2.9 G/DL (3.4-5.0) L Globulin 3.9 g/dL Albumin/Globulin Ratio 0.7 (1.0-2.7) L General: well developed, other - Morbidly obese Head: normocophalic Neck: no rigidity EENT: benign Neurologic Exam Mental Status: awake, alert, oriented x4, normal cognition, good mathematical skills, normal recent memory, normal remote memory, preserved visuospatial function Speech: normal speech, no dysarthia Language: normal language, no aphasia Cranial Nerve II: fundus normal, visual bonilla, no papilledema Cranial Nerves III, IV, : PERRLA, EOMI, pupils Cranial Nerve V: normal facial sensations, temporales function normal, masseters function normal, pterygoids function normal Cranial Nerve VII: normal facial expressions, other Cranial Nerve VIII: normal hearing, no nystagmus Cranial Nerve IX: normal palate elevation, gag response Cranial Nerve X: no voice hoarseness Cranial Nerve XI: SCM symmetric, trapezii function normal Cranial Nerve XII: tongue midline, no tongue atrophy/fasciculations Motor System: normal muscle tone, no involuntary movement, no muscle wasting Sensory: normal pinprick, normal light touch, normal position sense, normal graphesthesia Coordination: normal heel to villarreal bilaterally, negative Romberg test Deep Tendon Reflexes: 1+ bicep (L), 1+ bicep (R), 1+ tricep (L), 1+ tricep (R) , 1+ brachioradialis (L), 1+ brachioradialis (R), 1+ knee (L), 1+ knee (R), 1+ ankle (L), 1+ ankle (R) Reflexes: flexor plantar (L), flexor plantar (R); extensor plantar (L), extensor plantar (R) Stance: other - Broad based Gait: stable Objective Left arm, predominantly hand weakness at this time. Alert and oriented Ambulatory with cellulitis persisting on BLE He does not have proximal left arm weakness at this time, mild facial weakness, tongue deviated on exam Impression/Recommendations Problems: (1) Seizures Assessment & Plan: Keppra 2000mg BID PO Maintain SBP<140 Q4 Hour Neuro Checks Ativan 2mg PRN for seizure activity CT Head w/o contrast when able to rule out CVA - also for consideration of MRI if CT negative. - low suspicion of CVA due to normotensive status without risk factors of elevated BP/ HgBA1c or thyroid dysfunction. Na 135-145 Continue pain management - Lyrica 100mg TID - Continue Gabapentin 600mg TID Intense PT recommended EEG negative for seizures, but consistent with mild encephalopathy. Same on Repeat Correct hypocalcemia (2) Morbid obesity (3) COPD (chronic obstructive pulmonary disease) (4) Uncontrolled seizures (5) Left-sided weakness Assessment & Plan: No seizure activity captured on EEG but mild to moderate degree of encephalopathy seen. Repeat EEG same as previous (6) Knee osteomyelits, right Status: stable, progressing, tolerating diet, ambulating well Recommendations Q4 hour Neuro Obs - NO NIGHTTIME OBS if stable Prevent delirium Maintain regular sleep schedule and reduce nighttime activities such as observations (if unnecessary) Maintain Keppra dose at 2g BID, no additional meds at this time. [facility] Patient neurologically stable at this time for discharge Vicky Taylor N.P. Jan 16, 2019 21:40
[2019-01-17] VITALS: BP 146/84
--- NOTE | 2019-01-17 01:43 | NUR ---
NURSE NOTES: PT'S WOUND ON LEFT LEG APPEARED MARKEDLY WORSENING UPON ASSESSMENT. REDNESS, FOUL ODOR AND INCREASING DRAINAGE, PUS, AND SWELLING FROM WOUNDS NOTED. PT IS NON COMPLIANCE WITH PROPER WOUND CARE TO PROMOTE WOUND HEALING. PT INSISTED ON PICKING AT WOUND AND TAKING OFF " SKIN" WITH BARE HANDS. EDUCATED PT TO USE CLEAN GLOVES WHEN CHANGING DRESSINGS TO PREVENT CROSS CONTAMINATION. ORDERED WOUND CARE CONSULT PER PROTOCOL WOUND APPEARED TO BE GETTING WORSE.
[2019-01-17 04:00] VITALS: BP 158/91
--- NOTE | 2019-01-17 07:40 | NUR ---
HAND-OFF: Report given to MICAELA DIAZ.
[2019-01-17 08:00] VITALS: BP 124/72
--- NOTE | 2019-01-17 08:00 | NUR ---
NURSE NOTES: received patient seated on bed, with c/o bilateral leg pain, nurse told pt next due time for pain medication. No respiratory distress noted. Bed locked at the lowest position possible, call light within easy reach, siderails up x2, and pt refused siderails to be padded as pt complains he has hard time to reach the buttons for lifting or lowering head. Will continue to monitor patient and follow up with the plan of care.
[2019-01-17] MEDS: Magnesium Oxide 400mg tab ORAL SCH ×3 (08:34→17:05)
[2019-01-17] MEDS: Lyrica 50mg cap ORAL SCH ×3 (08:40→17:06)
[2019-01-17] MEDS: Losartan 25mg tab ORAL SCH (08:40)
--- NOTE | 2019-01-17 09:58 | Infectious Diseases Prog Note ---
Assessment/Plan Assessment/Plan B/l Leg cellulitis and panniculitis - in the setting of chronic venous stasis Active infectious cellulitis essentially resolved. Now he has chronic venous stasis and neuropathic pain with poorly healing wounds. Alot off this is due to the severe swelling in his feet but also he is poorly compliant with wound care instructions. L side weakness/spasticity- thought be 2ry to seizures- r/O CVA- no active infectious process at present (pt afebrile- doubt meningitis at this moment) Afebrile No leukocytosis -CXR: No acute findings CVA HTN bipolar disorder w/ psychotic features tobacco abuse anxiety disorder chronic pain CHF seizure disorder COPD morbid obesity Dm2 HTN SNF resident Plan: - Continue to monitor off abx - Needs wound care for healing. - Patient more compliant with leg elevation and wound dressing instructions - 01/07/19 SP IV Dapto d# 14 - 01/06/19 S/P Levofloxacin #7 - 12/25 sp Bactrim #4/14 and add IV Ancef #3/14 for cellulitis - Monitor CBC/CMP, temperatures - aspiration precautions - wound care per hospital protocol Subjective Allergies: Coded Allergies: ASPIRIN (Verified Allergy, Unknown, 07/14/18) KETOROLAC (Verified Allergy, Unknown, 07/14/18) PENICILLINS (Verified Allergy, Unknown, 12/23/18) tolerated Ancef on 08/2018 Subjective JANEE Afebrile No leukocytosis Objective Vital Signs Last 24 Hour Vital Signs Date Time Temp Pulse Resp B/P (MAP) Pulse Ox O2 Delivery O2 Flow Rate FiO2 01/17/19 08:40 124/72 01/17/19 04:00 98.0 92 16 158/91 (113) 100 01/17/19 00:00 98.5 92 18 146/84 (104) 99 01/16/19 21:00 Room Air Room Air 01/16/19 20:00 98.3 99 20 157/80 (105) 98 01/16/19 17:11 138/77 (97) 01/16/19 16:48 98.4 01/16/19 15:45 98.4 89 20 170/74 (106) 95 01/16/19 12:00 99.0 85 18 144/85 (104) 96 Height (Feet): 5 Height (Inches): 10.00 Weight (Pounds): 495 Objective GEN: NAD, sitting on bed HEENT: NCAT, MMM Respiratory/Chest: CTAB, No W Cardiovascular: RRR, S1, S2 Abdomen: Soft, ND Ext. LE with severe edema - right leg healing well. Left still with serous drainage slowly getting better Current Medications Medications (Trade) Dose Ordered Sig/Luis Route PRN Reason Start Time Stop Time Status Last Admin Dose Admin Chlorhexidine Gluconate (Ruby-Hex 2%) 1 applic DAILY@2000 TOPIC 01/16/19 20:00 02/15/19 19:59 01/16/19 20:18 Furosemide (Lasix) 20 mg Q12HR IV 01/09/19 21:00 01/21/19 00:00 01/17/19 08:41 Heparin Sodium/ Sodium Chloride (Heparin 1000 units/500ml Premix) 1,000 unit ONCE PRN IV PICC 01/16/19 14:22 01/18/19 23:59 Hydromorphone HCl (Dilaudid) 4 mg Q4H PRN IM Severe Pain (Pain Scale 7-10) 01/16/19 11:45 01/23/19 11:29 01/16/19 20:20 Hydromorphone HCl (Dilaudid) 4 mg Q4H PRN IVP Severe Pain (Pain Scale 7-10) 01/16/19 11:30 01/22/19 15:29 01/17/19 08:43 Levetiracetam (Keppra) 2,000 mg Q12HR ORAL 01/01/19 21:00 01/18/19 08:59 01/17/19 08:41 Lidocaine HCl (Xylocaine 1% 30ml) 30 ml ONCE PRN INJ PICC 01/16/19 14:22 01/18/19 23:59 Losartan Potassium (Cozaar) 25 mg DAILY ORAL 12/29/18 13:45 01/28/19 13:44 01/17/19 08:40 Magnesium Oxide (Mag-Ox 400mg) 800 mg THREE TIMES A DAY ORAL 01/02/19 18:00 02/01/19 17:59 01/17/19 08:34 Pregabalin (Lyrica) 100 mg THREE TIMES A DAY ORAL 12/26/18 09:00 01/19/19 22:59 01/17/19 08:40 Promethazine HCl/ Codeine (Phenergan with Codeine) 5 ml Q4H PRN ORAL For Cough 12/28/18 12:00 01/27/19 11:59 01/01/19 01:34 Elliot Chauhan MD Jan 17, 2019 09:58
--- NOTE | 2019-01-17 11:52 | Nephrology Progress Note ---
Assessment/Plan Problem List: (1) Hyponatremia (2) Morbid obesity (3) COPD (chronic obstructive pulmonary disease) Plan Mag IV as needed Mag PO TID Low Na resolved cont per consultants ? DC planning Subjective ROS Limited/Unobtainable: No Constitutional: Reports: malaise Objective Objective Last 24 Hour Vital Signs Date Time Temp Pulse Resp B/P (MAP) Pulse Ox O2 Delivery O2 Flow Rate FiO2 01/17/19 09:13 98.0 01/17/19 09:00 Room Air Room Air 01/17/19 08:40 124/72 01/17/19 08:00 98.5 98 19 124/72 (89) 99 01/17/19 04:00 98.0 92 16 158/91 (113) 100 01/17/19 00:00 98.5 92 18 146/84 (104) 99 01/16/19 21:00 Room Air Room Air 01/16/19 20:00 98.3 99 20 157/80 (105) 98 01/16/19 17:11 138/77 (97) 01/16/19 15:45 98.4 89 20 170/74 (106) 95 01/16/19 12:00 99.0 85 18 144/85 (104) 96 Intake and Output 01/16/19 01/17/19 19:00 07:00 Intake Total 1480 ml Output Total 2 ml Balance 1480 ml -2 ml Intake Oral 1480 ml Output Urine Total 2 ml # Voids 4 # Bowel Movements 1 Height (Feet): 5 Height (Inches): 10.00 Weight (Pounds): 495 General Appearance: no apparent distress Objective no change Devante Taylor MD Jan 17, 2019 11:52
[2019-01-17 12:00] VITALS: BP 144/78
--- NOTE | 2019-01-17 14:54 | Pulmonology Progress Note ---
Assessment/Plan Problems: (1) COPD (chronic obstructive pulmonary disease) (2) Peripheral edema (3) Morbid obesity (4) Cellulitis (5) Seizures (6) Cerebrovascular accident (7) Left-sided weakness (8) Right heart failure (9) Lumbar spondylosis (10) ADALBERTO (obstructive sleep apnea) Assessment/Plan cough much better all meds /notes reviewed pt/ot on dialudid to 4 mg and add Methadone 10Q8 respiratory treatment titrate fio2 to sat of 92% dvt prophylaxis Subjective ROS Limited/Unobtainable: No Constitutional: Reports: no symptoms HEENT: Repors: no symptoms Allergies: Coded Allergies: ASPIRIN (Verified Allergy, Unknown, 07/14/18) KETOROLAC (Verified Allergy, Unknown, 07/14/18) PENICILLINS (Verified Allergy, Unknown, 12/23/18) tolerated Ancef on 08/2018 Objective Last 24 Hour Vital Signs Date Time Temp Pulse Resp B/P (MAP) Pulse Ox O2 Delivery O2 Flow Rate FiO2 01/17/19 12:00 97.3 95 19 144/78 (100) 97 01/17/19 09:13 98.0 01/17/19 09:00 Room Air Room Air 01/17/19 08:40 124/72 01/17/19 08:00 98.5 98 19 124/72 (89) 99 01/17/19 04:00 98.0 92 16 158/91 (113) 100 01/17/19 00:00 98.5 92 18 146/84 (104) 99 01/16/19 21:00 Room Air Room Air 01/16/19 20:00 98.3 99 20 157/80 (105) 98 01/16/19 17:11 138/77 (97) 01/16/19 15:45 98.4 89 20 170/74 (106) 95 Intake and Output 01/16/19 01/17/19 19:00 07:00 Intake Total 1480 ml Output Total 2 ml Balance 1480 ml -2 ml Intake Oral 1480 ml Output Urine Total 2 ml # Voids 4 # Bowel Movements 1 Objective HEENT: normocephalic, atraumatic Respiratory/Chest: chest wall non-tender, lungs clear Cardiovascular: normal peripheral pulses, normal rate Abdomen: normal bowel sounds, no organomegaly, massive fat on abdomen Extremities: no cyanosis Skin: no lesions Current Medications Medications (Trade) Dose Ordered Sig/Luis Route PRN Reason Start Time Stop Time Status Last Admin Dose Admin Chlorhexidine Gluconate (Ruby-Hex 2%) 1 applic DAILY@2000 TOPIC 01/16/19 20:00 02/15/19 19:59 01/16/19 20:18 Furosemide (Lasix) 20 mg Q12HR IV 01/09/19 21:00 01/21/19 00:00 01/17/19 08:41 Heparin Sodium/ Sodium Chloride (Heparin 1000 units/500ml Premix) 1,000 unit ONCE PRN IV PICC 01/16/19 14:22 01/18/19 23:59 Hydromorphone HCl (Dilaudid) 4 mg Q4H PRN IM Severe Pain (Pain Scale 7-10) 01/16/19 11:45 01/23/19 11:29 01/16/19 20:20 Hydromorphone HCl (Dilaudid) 4 mg Q4H PRN IVP Severe Pain (Pain Scale 7-10) 01/16/19 11:30 01/22/19 15:29 01/17/19 12:53 Levetiracetam (Keppra) 2,000 mg Q12HR ORAL 01/01/19 21:00 01/18/19 08:59 01/17/19 08:41 Lidocaine HCl (Xylocaine 1% 30ml) 30 ml ONCE PRN INJ PICC 01/16/19 14:22 01/18/19 23:59 Losartan Potassium (Cozaar) 25 mg DAILY ORAL 12/29/18 13:45 01/28/19 13:44 01/17/19 08:40 Magnesium Oxide (Mag-Ox 400mg) 800 mg THREE TIMES A DAY ORAL 01/02/19 18:00 02/01/19 17:59 01/17/19 12:52 Pregabalin (Lyrica) 100 mg THREE TIMES A DAY ORAL 12/26/18 09:00 01/19/19 22:59 01/17/19 12:52 Promethazine HCl/ Codeine (Phenergan with Codeine) 5 ml Q4H PRN ORAL For Cough 12/28/18 12:00 01/27/19 11:59 01/01/19 01:34 Bill Dixon MD Jan 17, 2019 14:54
[2019-01-17 16:00] VITALS: BP 137/76
--- NOTE | 2019-01-17 16:32 | General Progress Note ---
Assessment/Plan Problem List: (1) Abdominal pannus ICD Codes: E65 - Localized adiposity SNOMED: 8079197308139 (2) Peripheral edema ICD Codes: R60.9 - Edema, unspecified SNOMED: 744522277 (3) Abdominal wall cellulitis ICD Codes: L03.311 - Cellulitis of abdominal wall SNOMED: 90039312 (4) Leg pain ICD Codes: M79.606 - Pain in leg, unspecified SNOMED: 70047724 (5) COPD (chronic obstructive pulmonary disease) ICD Codes: J44.9 - Chronic obstructive pulmonary disease, unspecified SNOMED: 18058748 (6) Seizures ICD Codes: R56.9 - Unspecified convulsions SNOMED: 98780291 (7) Morbid obesity ICD Codes: E66.01 - Morbid (severe) obesity due to excess calories SNOMED: 898552156 (8) Cerebrovascular accident ICD Codes: I63.9 - Cerebral infarction, unspecified SNOMED: 615619397 (9) Left-sided weakness ICD Codes: R53.1 - Weakness SNOMED: 356610455 Status: stable, progressing, tolerating diet, ambulating well Assessment/Plan: pt diet neuro f/u wound care abx pain control cbc bmp am dc to snf if clear Subjective Constitutional: Reports: weakness Allergies: Coded Allergies: ASPIRIN (Verified Allergy, Unknown, 07/14/18) KETOROLAC (Verified Allergy, Unknown, 07/14/18) PENICILLINS (Verified Allergy, Unknown, 12/23/18) tolerated Ancef on 08/2018 All Systems: reviewed and negative except above Subjective sleepy calm Objective Last 24 Hour Vital Signs Date Time Temp Pulse Resp B/P (MAP) Pulse Ox O2 Delivery O2 Flow Rate FiO2 01/17/19 13:23 97.3 01/17/19 12:00 97.3 95 19 144/78 (100) 97 01/17/19 09:00 Room Air Room Air 01/17/19 08:40 124/72 01/17/19 08:00 98.5 98 19 124/72 (89) 99 01/17/19 04:00 98.0 92 16 158/91 (113) 100 01/17/19 00:00 98.5 92 18 146/84 (104) 99 01/16/19 21:00 Room Air Room Air 01/16/19 20:00 98.3 99 20 157/80 (105) 98 01/16/19 17:11 138/77 (97) Intake and Output 01/16/19 01/17/19 19:00 07:00 Intake Total 1480 ml Output Total 2 ml Balance 1480 ml -2 ml Intake Oral 1480 ml Output Urine Total 2 ml # Voids 4 # Bowel Movements 1 Height (Feet): 5 Height (Inches): 10.00 Weight (Pounds): 495 General Appearance: lethargic EENT: normal ENT inspection Neck: normal alignment Cardiovascular: normal peripheral pulses, normal rate, regular rhythm Respiratory/Chest: chest wall non-tender, lungs clear, normal breath sounds Abdomen: normal bowel sounds, soft, distended Extremities: normal inspection Edema: 1+ Arm (L), 1+ Arm (R), 1+ Leg (L), 1+ Leg (R), 1+ Pedal (L), 1+ Pedal ( R), 1+ Generalized Edema: trace edema Neurologic: responsive, motor weakness Skin: normal pigmentation, warm/dry Objective bl' villarreal dressing c&d Ernesto Nicole DO Jan 17, 2019 16:32
--- NOTE | 2019-01-17 17:14 | NUR ---
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 PERIPHERAL EDEMA T 97.3 HR 95 RR 19 B/P 144/78 SATS 97% ON RA NO LABS TODAY IS:LYRICA 100mg DILAUDID 4mg IVP COZAAR 25mg KEPPRA 2,000mg MAGNESIUM OXIDE 800mg PATIENT IS AWAITING PLACEMENT MED/SURG STATUS
--- NOTE | 2019-01-17 19:15 | Progress Note ---
DATE: 01/17/2019 SUBJECTIVE: This is a 53-year-old male patient. He had rule out CVA, but he still has some mood lability, confusion, COPD, seizure disorder, as well as mood lability. That is why, his attending has requested daily psychiatric consultation. DIAGNOSIS: Generalized anxiety disorder. Rule out major depressive disorder, mild, recurrent. PLAN: Continue treatment with psychotropic medications to prevent any further decline in cognition. A 20 minutes of cognitive behavioral therapy to help him identify his automatic negative thoughts, help him convert his negative thoughts to more positive thoughts to reduce depression, anxiety, and mood lability. Chart was reviewed. Seen and assessed in his room. Laney Mcghee M.D. DR: HUMAIRA JOB#: [id number] CC:
--- NOTE | 2019-01-17 19:27 | NUR ---
HAND-OFF: Report given to Cornell.
--- NOTE | 2019-01-17 19:30 | NUR ---
NURSE NOTES: RECEIVED PT FROM MICAELA DIAZ. PT IS AWAKE, AAO X4. ON 3L NC. NO ACUTE DISTRESS NOTED. IV ON RIGHT THUMB IS INTACT AND PATENT. DRESSINGS ON ABDOMEN AND BILATERAL LEGS ARE DRY AND INTACT. BED IS LOCKED AT THE LOWEST POSITION, BED ALARMS ACTIVE, SIDE RAILS UP X2, AND CALL LIGHT IS WITHIN REACH. WILL CONTINUE TO MONITOR.
[2019-01-17 20:00] VITALS: BP 127/81
[2019-01-17] MEDS: Dyna-Hex 2% Top Sol 2oz TOPIC SCH (20:00)
--- NOTE | 2019-01-17 23:37 | Neurology Progress Note ---
Interim History Interim History ROS Limited/Unobtainable: No Complaints: Seizures/ Weakness Events: This visit was performed on January 17, [address] Amador Brewster Review of Systems All Systems: reviewed and negative except above Objective Physical Exam Last Vital Signs Date Time Temp Pulse Resp B/P (MAP) Pulse Ox O2 Delivery O2 Flow Rate FiO2 01/17/19 17:37 97.3 01/17/19 16:00 97 19 137/76 (96) 95 01/17/19 09:00 Room Air Room Air 01/14/19 08:23 21 General: well developed, other - Morbidly obese Head: normocophalic Neck: no rigidity EENT: benign Neurologic Exam Mental Status: awake, alert, oriented x4, normal cognition, good mathematical skills, normal recent memory, normal remote memory, preserved visuospatial function Speech: normal speech, no dysarthia Language: normal language, no aphasia Cranial Nerve II: fundus normal, visual bonilla, no papilledema Cranial Nerves III, IV, : PERRLA, EOMI, pupils Cranial Nerve V: normal facial sensations, temporales function normal, masseters function normal, pterygoids function normal Cranial Nerve VII: normal facial expressions, other Cranial Nerve VIII: normal hearing, no nystagmus Cranial Nerve IX: normal palate elevation, gag response Cranial Nerve X: no voice hoarseness Cranial Nerve XI: SCM symmetric, trapezii function normal Cranial Nerve XII: tongue midline, no tongue atrophy/fasciculations Motor System: normal muscle tone, no involuntary movement, no muscle wasting Sensory: normal pinprick, normal light touch, normal position sense, normal graphesthesia Coordination: normal heel to villarreal bilaterally, negative Romberg test Deep Tendon Reflexes: 1+ bicep (L), 1+ bicep (R), 1+ tricep (L), 1+ tricep (R) , 1+ brachioradialis (L), 1+ brachioradialis (R), 1+ knee (L), 1+ knee (R), 1+ ankle (L), 1+ ankle (R) Reflexes: flexor plantar (L), flexor plantar (R); extensor plantar (L), extensor plantar (R) Stance: other - Broad based Gait: stable Objective Left arm, predominantly hand weakness at this time. Alert and oriented Ambulatory with cellulitis persisting on BLE He does not have proximal left arm weakness at this time, mild facial weakness, tongue deviated on exam Impression/Recommendations Problems: (1) Seizures Assessment & Plan: Keppra 2000mg BID PO Maintain SBP<140 Q4 Hour Neuro Checks Ativan 2mg PRN for seizure activity CT Head w/o contrast when able to rule out CVA - also for consideration of MRI if CT negative. - low suspicion of CVA due to normotensive status without risk factors of elevated BP/ HgBA1c or thyroid dysfunction. Na 135-145 Continue pain management - Lyrica 100mg TID - Continue Gabapentin 600mg TID Intense PT recommended EEG negative for seizures, but consistent with mild encephalopathy. Same on Repeat Correct hypocalcemia (2) Morbid obesity (3) COPD (chronic obstructive pulmonary disease) (4) Uncontrolled seizures (5) Left-sided weakness Assessment & Plan: No seizure activity captured on EEG but mild to moderate degree of encephalopathy seen. Repeat EEG same as previous (6) Knee osteomyelits, right Status: stable, progressing, tolerating diet, ambulating well Recommendations Q4 hour Neuro Obs - NO NIGHTTIME OBS if stable Prevent delirium Maintain regular sleep schedule and reduce nighttime activities such as observations (if unnecessary) Maintain Keppra dose at 2g BID, no additional meds at this time. Awaiting Bariatric Surgery planned for January 25, 2019- declined by [facility]. Will stay at [facility] pending surgery. SBP<140 Vicky Taylor N.P. Jan 17, 2019 23:37
[2019-01-18] VITALS: BP 108/58
[2019-01-18 04:00] VITALS: BP 139/98
--- NOTE | 2019-01-18 07:15 | NUR ---
NURSE NOTES: RN received pt in stable condition alert in bed stating he did not get the right breakfast; "there is no honey nut Cheerios". RN informed pt request would be made and message was left for nutrition. Bed in low, locked, position, call light within reach. PICC line insertion scheduled for today. Will continue plan of care.
--- NOTE | 2019-01-18 07:30 | NUR ---
HAND-OFF: Report given to MICAELA BEASLEY.
[2019-01-18 08:00] VITALS: BP 130/76
--- NOTE | 2019-01-18 09:10 | NUR ---
NURSE NOTES: Pt on seizure precautions; refuses to have side rails padded.
--- NOTE | 2019-01-18 09:10 | NUR ---
NURSE NOTES: Pt requested Dilauded pain medication PRN; RN gave med at 0915 am - did not save in eMar. RN manually clicked on med at 0959 to indicate given; could not correct time in eMar. Addendum: 01/18/19 at 1313 by RAMOS GUERRERO RN RN was able to correct eMar to indicated correct time Dilauded given - 0930 is correct. Please reference this amended note
[2019-01-18] MEDS: Losartan 25mg tab ORAL SCH (09:12)
[2019-01-18] MEDS: Lyrica 50mg cap ORAL SCH ×3 (09:13→17:16)
[2019-01-18] MEDS: Magnesium Oxide 400mg tab ORAL SCH ×3 (09:24→17:17)
--- NOTE | 2019-01-18 10:22 | NUR ---
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 ENCEPHALOPATHY VS: BP 108/58, P 97, T 97.0, RR 20, SpO2 98 on 3.0L NC IS:DILAUDID 4mg MAGNESIUM OXIDE 800mg LYRICA 100mg METHADONE HCI 10mg COZAAR 25mg LASIX 20mg IV MED/SURG STATUS
--- NOTE | 2019-01-18 10:55 | NUR ---
PT NOTE: Attempted to see patient for PT treatment. Patient declining to participate with PT at this time, waiting to go for PICC line insertion. Patient requesting that therapist return tomorrow, patient's request respected. Will follow up tomorrow with patient, Erika HINOJOSA notified.
[2019-01-18 12:00] VITALS: BP 151/81
--- NOTE | 2019-01-18 12:00 | Progress Note ---
DATE: 01/18/2019 SUBJECTIVE: This is a 53-year-old male patient, rule out CVA. He also has COPD, end-stage renal disease, and seizure disorder, but he still has some depression and mood lability, worsened by stress of his medical illness. That is why, his attending has requested daily psychiatric consultation. He still has some mood lability, confusion, and disorganized thought process. MENTAL STATUS EXAMINATION: This is a 53-year-old male. Appearance is disheveled. Attitude, irritable and agitated. Affect, guarded and restricted. Intellect poor. Mood, depressed and anxious. Motor activity, psychomotor agitation. Attention span is poor. Orientation x2. Speech is pressured. Thought process, disorganized and illogical. Insight and judgment are poor. DIAGNOSIS: Major depressive disorder, mild, recurrent, rule out generalized anxiety disorder. PLAN: We will continue to be followed by Psychiatry. A 20 minutes of cognitive behavioral therapy to help him identify his automatic negative thoughts, help him convert his negative thoughts to more positive thoughts to reduce depression, anxiety, and mood lability. A 20 minutes of cognitive behavioral therapy provided. Chart was reviewed. Discussed with staff. Seen and assessed in his room. Laney Mcghee M.D. DR: GUTIERREZ JOB#: [id number] CC:
--- NOTE | 2019-01-18 13:01 | General Progress Note ---
Assessment/Plan Problem List: (1) Abdominal pannus ICD Codes: E65 - Localized adiposity SNOMED: 1292767015390 (2) Peripheral edema ICD Codes: R60.9 - Edema, unspecified SNOMED: 847181349 (3) Abdominal wall cellulitis ICD Codes: L03.311 - Cellulitis of abdominal wall SNOMED: 13077836 (4) Leg pain ICD Codes: M79.606 - Pain in leg, unspecified SNOMED: 24818596 (5) COPD (chronic obstructive pulmonary disease) ICD Codes: J44.9 - Chronic obstructive pulmonary disease, unspecified SNOMED: 87758954 (6) Seizures ICD Codes: R56.9 - Unspecified convulsions SNOMED: 12910515 (7) Morbid obesity ICD Codes: E66.01 - Morbid (severe) obesity due to excess calories SNOMED: 549712314 (8) Cerebrovascular accident ICD Codes: I63.9 - Cerebral infarction, unspecified SNOMED: 937019441 (9) Left-sided weakness ICD Codes: R53.1 - Weakness SNOMED: 078071184 Status: stable, progressing, tolerating diet Assessment/Plan: pt diet neuro f/u wound care abx pain control cbc bmp am dc to snf if clear Subjective Constitutional: Reports: weakness Allergies: Coded Allergies: ASPIRIN (Verified Allergy, Unknown, 07/14/18) KETOROLAC (Verified Allergy, Unknown, 07/14/18) PENICILLINS (Verified Allergy, Unknown, 12/23/18) tolerated Ancef on 08/2018 All Systems: reviewed and negative except above Subjective sleepy calm Objective Last 24 Hour Vital Signs Date Time Temp Pulse Resp B/P (MAP) Pulse Ox O2 Delivery O2 Flow Rate FiO2 01/18/19 12:00 98.7 83 20 151/81 (104) 99 01/18/19 10:29 97.0 01/18/19 10:00 97.0 01/18/19 09:12 130/76 01/18/19 09:00 Room Air Room Air 01/18/19 08:00 97.0 89 18 130/76 (94) 98 01/18/19 04:00 98.1 85 18 139/98 (112) 98 01/18/19 00:00 98.4 97 20 108/58 (75) 98 01/17/19 21:00 Nasal Cannula 3.0 Nasal Cannula 3.0 01/17/19 20:00 98.4 65 20 127/81 (96) 100 01/17/19 16:00 99.2 97 19 137/76 (96) 95 Intake and Output 01/17/19 01/18/19 19:00 07:00 Intake Total 1800 ml 480 ml Balance 1800 ml 480 ml Intake Oral 480 ml Other 1800 ml # Voids 4 # Bowel Movements 1 Height (Feet): 5 Height (Inches): 10.00 Weight (Pounds): 495 General Appearance: lethargic EENT: normal ENT inspection Neck: normal alignment Cardiovascular: normal peripheral pulses, normal rate, regular rhythm Respiratory/Chest: chest wall non-tender, lungs clear, normal breath sounds Abdomen: normal bowel sounds, soft, distended Extremities: normal inspection Edema: 1+ Arm (L), 1+ Arm (R), 1+ Leg (L), 1+ Leg (R), 1+ Pedal (L), 1+ Pedal ( R), 1+ Generalized Edema: trace edema Neurologic: responsive, motor weakness Skin: normal pigmentation, warm/dry Objective bl' villarreal dressing c&d Ernesto Nicole DO Jan 18, 2019 13:01
--- NOTE | 2019-01-18 13:03 | Pulmonology Progress Note ---
Assessment/Plan Problems: (1) COPD (chronic obstructive pulmonary disease) (2) Peripheral edema (3) Morbid obesity (4) Cellulitis (5) Seizures (6) Cerebrovascular accident (7) Left-sided weakness (8) Right heart failure (9) Lumbar spondylosis (10) ADALBERTO (obstructive sleep apnea) Assessment/Plan no new complains satisfied with pain meds regiment cough much better all meds /notes reviewed pt/ot on dialudid to 4 mg and add Methadone 10Q8 respiratory treatment titrate fio2 to sat of 92% dvt prophylaxis Subjective ROS Limited/Unobtainable: No Constitutional: Reports: no symptoms HEENT: Repors: no symptoms Respiratory: Reports: no symptoms Allergies: Coded Allergies: ASPIRIN (Verified Allergy, Unknown, 07/14/18) KETOROLAC (Verified Allergy, Unknown, 07/14/18) PENICILLINS (Verified Allergy, Unknown, 12/23/18) tolerated Ancef on 08/2018 Objective Last 24 Hour Vital Signs Date Time Temp Pulse Resp B/P (MAP) Pulse Ox O2 Delivery O2 Flow Rate FiO2 01/18/19 12:00 98.7 83 20 151/81 (104) 99 01/18/19 10:29 97.0 01/18/19 10:00 97.0 01/18/19 09:12 130/76 01/18/19 09:00 Room Air Room Air 01/18/19 08:00 97.0 89 18 130/76 (94) 98 01/18/19 04:00 98.1 85 18 139/98 (112) 98 01/18/19 00:00 98.4 97 20 108/58 (75) 98 01/17/19 21:00 Nasal Cannula 3.0 Nasal Cannula 3.0 01/17/19 20:00 98.4 65 20 127/81 (96) 100 01/17/19 16:00 99.2 97 19 137/76 (96) 95 Intake and Output 01/17/19 01/18/19 19:00 07:00 Intake Total 1800 ml 480 ml Balance 1800 ml 480 ml Intake Oral 480 ml Other 1800 ml # Voids 4 # Bowel Movements 1 Objective HEENT: normocephalic, atraumatic Respiratory/Chest: chest wall non-tender, lungs clear Cardiovascular: normal peripheral pulses, normal rate Abdomen: normal bowel sounds, no organomegaly, massive fat on abdomen Extremities: no cyanosis Skin: no lesions Current Medications Medications (Trade) Dose Ordered Sig/Luis Route PRN Reason Start Time Stop Time Status Last Admin Dose Admin Chlorhexidine Gluconate (Ruby-Hex 2%) 1 applic DAILY@2000 TOPIC 01/16/19 20:00 02/15/19 19:59 01/16/19 20:18 Furosemide (Lasix) 20 mg Q12HR IV 01/09/19 21:00 01/21/19 00:00 01/17/19 08:41 Heparin Sodium/ Sodium Chloride (Heparin 1000 units/500ml Premix) 1,000 unit ONCE PRN IV PICC 01/16/19 14:22 01/18/19 23:59 Hydromorphone HCl (Dilaudid) 4 mg Q4H PRN IM Severe Pain (Pain Scale 7-10) 01/16/19 11:45 01/23/19 11:29 01/18/19 05:10 Hydromorphone HCl (Dilaudid) 4 mg Q4H PRN IVP Severe Pain (Pain Scale 7-10) 01/16/19 11:30 01/22/19 15:29 01/18/19 09:30 Lidocaine HCl (Xylocaine 1% 30ml) 30 ml ONCE PRN INJ PICC 01/16/19 14:22 01/18/19 23:59 Losartan Potassium (Cozaar) 25 mg DAILY ORAL 12/29/18 13:45 01/28/19 13:44 01/18/19 09:12 Magnesium Oxide (Mag-Ox 400mg) 800 mg THREE TIMES A DAY ORAL 01/02/19 18:00 02/01/19 17:59 01/18/19 09:24 Methadone HCl (Methadone HCl) 10 mg Q6H ORAL 01/17/19 15:00 01/24/19 14:59 01/18/19 09:13 Pregabalin (Lyrica) 100 mg THREE TIMES A DAY ORAL 12/26/18 09:00 01/19/19 22:59 01/18/19 09:13 Promethazine HCl/ Codeine (Phenergan with Codeine) 5 ml Q4H PRN ORAL For Cough 12/28/18 12:00 01/27/19 11:59 01/01/19 01:34 Bill Dixon MD Jan 18, 2019 13:03
--- NOTE | 2019-01-18 13:10 | NUR ---
NURSE NOTES: RN was able to correct eMar to indicated correct time Dilauded given - 6922 is correct. Please reference this amended note.
[2019-01-18] MEDS ORDERED: Hydrocortisone 1% Cr 15gm TOPIC PRN (13:15)
--- NOTE | 2019-01-18 13:35 | Infectious Diseases Prog Note ---
Assessment/Plan Assessment/Plan B/l Leg cellulitis and panniculitis - in the setting of chronic venous stasis Active infectious cellulitis essentially resolved. Now he has chronic venous stasis and neuropathic pain with poorly healing wounds. Alot off this is due to the severe swelling in his feet but also he is poorly compliant with wound care instructions. L side weakness/spasticity- thought be 2ry to seizures- r/O CVA- no active infectious process at present (pt afebrile- doubt meningitis at this moment) Afebrile No leukocytosis -CXR: No acute findings CVA HTN bipolar disorder w/ psychotic features tobacco abuse anxiety disorder chronic pain CHF seizure disorder COPD morbid obesity Dm2 HTN SNF resident Plan: - Continue to monitor off abx - Needs wound care for healing. - Patient more compliant with leg elevation and wound dressing instructions - 01/07/19 SP IV Dapto d# 14 - 01/06/19 S/P Levofloxacin #7 - 12/25 sp Bactrim #4/14 and add IV Ancef #3/14 for cellulitis - Monitor CBC/CMP, temperatures - aspiration precautions - wound care per hospital protocol Subjective Allergies: Coded Allergies: ASPIRIN (Verified Allergy, Unknown, 07/14/18) KETOROLAC (Verified Allergy, Unknown, 07/14/18) PENICILLINS (Verified Allergy, Unknown, 12/23/18) tolerated Ancef on 08/2018 Subjective afebrile no leukocytosis Objective Vital Signs Last 24 Hour Vital Signs Date Time Temp Pulse Resp B/P (MAP) Pulse Ox O2 Delivery O2 Flow Rate FiO2 01/18/19 12:00 98.7 83 20 151/81 (104) 99 01/18/19 10:29 97.0 01/18/19 10:00 97.0 01/18/19 09:12 130/76 01/18/19 09:00 Room Air Room Air 01/18/19 08:00 97.0 89 18 130/76 (94) 98 01/18/19 04:00 98.1 85 18 139/98 (112) 98 01/18/19 00:00 98.4 97 20 108/58 (75) 98 01/17/19 21:00 Nasal Cannula 3.0 Nasal Cannula 3.0 01/17/19 20:00 98.4 65 20 127/81 (96) 100 01/17/19 16:00 99.2 97 19 137/76 (96) 95 Height (Feet): 5 Height (Inches): 10.00 Weight (Pounds): 495 Objective GENERAL: Calm in bed, oriented x3, in slight distress, secondary to weakness. CARDIOVASCULAR: No murmurs. LUNGS: Poor air exchange. ABDOMEN: Bowel sounds distant. EXTREMITIES: Show no cyanosis or clubbing. A +3 edema in bilateral lower extremity w/ warmth, erythema, superficial ulcers and TTP. Large pannus noted in the abdomen area w/ warmth, edema and erythema NEUROLOGIC: The patient moves all extremities, slightly weak. Current Medications Medications (Trade) Dose Ordered Sig/Luis Route PRN Reason Start Time Stop Time Status Last Admin Dose Admin Chlorhexidine Gluconate (Ruby-Hex 2%) 1 applic DAILY@1999 TOPIC 01/16/19 20:00 02/15/19 19:59 01/16/19 20:18 Furosemide (Lasix) 20 mg Q12HR IV 01/09/19 21:00 01/21/19 00:00 01/17/19 08:41 Heparin Sodium/ Sodium Chloride (Heparin 1000 units/500ml Premix) 1,000 unit ONCE PRN IV PICC 01/16/19 14:22 01/18/19 23:59 Hydrocortisone (Hydrocortisone) 1 applic BIDPRN PRN TOPIC Itching 01/18/19 13:45 02/17/19 13:14 Hydromorphone HCl (Dilaudid) 4 mg Q4H PRN IM Severe Pain (Pain Scale 7-10) 01/16/19 11:45 01/23/19 11:29 01/18/19 05:10 Hydromorphone HCl (Dilaudid) 4 mg Q4H PRN IVP Severe Pain (Pain Scale 7-10) 01/16/19 11:30 01/22/19 15:29 01/18/19 13:21 Lidocaine HCl (Xylocaine 1% 30ml) 30 ml ONCE PRN INJ PICC 01/16/19 14:22 01/18/19 23:59 Losartan Potassium (Cozaar) 25 mg DAILY ORAL 12/29/18 13:45 01/28/19 13:44 01/18/19 09:12 Magnesium Oxide (Mag-Ox 400mg) 800 mg THREE TIMES A DAY ORAL 01/02/19 18:00 02/01/19 17:59 01/18/19 13:20 Methadone HCl (Methadone HCl) 10 mg Q6H ORAL 01/17/19 15:00 01/24/19 14:59 01/18/19 09:13 Pregabalin (Lyrica) 100 mg THREE TIMES A DAY ORAL 12/26/18 09:00 01/19/19 22:59 01/18/19 13:20 Promethazine HCl/ Codeine (Phenergan with Codeine) 5 ml Q4H PRN ORAL For Cough 12/28/18 12:00 01/27/19 11:59 01/01/19 01:34 Alexa Patterson M.D. Jan 18, 2019 13:35
--- NOTE | 2019-01-18 15:07 | NUR ---
*-* DISCHARGE PLANNING *-* PATIENT HAS BEEN REFERRED TO: [facility] P:[phone] F: [phone] & [facility] P:[phone] F:[phone]
--- NOTE | 2019-01-18 15:54 | Diagnostic Imaging Report ---
Indication: row boss venous access Findings: After the indications, procedure, risks, complications, and alternatives of the procedure were explained, written informed consent was obtained. The right upper extremity was prepped with alcohol. All elements of maximal sterile barrier technique were followed including usage of a cap, mask, sterile gown, sterile gloves, hand hygiene and a large sterile sheet. The old PICC line was removed over a wire. Sonographic evaluation of the upper extremity was performed demonstrating a patent and compressible basilic vein. An .018 wire was introduced. Needle exchanged for a 5 Cymraes peel-away sheath. Measurements were obtained. A 5 Cymraes dual-lumen Power PICC line catheter was cut to 50 cm and introduced over the wire. Peel-away sheath and wire were removed.Catheter was secured to the skin using 2-0 Prolene suture. Both ports aspirate and flush easily. Post procedure chest x-ray demonstrates good position of the PICC line catheter within the SVC. Impression: Successful placement of an upper extremity PICC line catheter
[2019-01-18 16:00] VITALS: BP 120/72
--- NOTE | 2019-01-18 17:06 | Nephrology Progress Note ---
Assessment/Plan Problem List: (1) Hyponatremia (2) Morbid obesity (3) COPD (chronic obstructive pulmonary disease) Plan Mag IV as needed Mag PO TID Low Na resolved cont per consultants ? DC planning Subjective ROS Limited/Unobtainable: No Objective Objective Last 24 Hour Vital Signs Date Time Temp Pulse Resp B/P (MAP) Pulse Ox O2 Delivery O2 Flow Rate FiO2 01/18/19 13:51 98.7 01/18/19 12:00 98.7 83 20 151/81 (104) 99 01/18/19 10:29 97.0 01/18/19 09:12 130/76 01/18/19 09:00 Room Air Room Air 01/18/19 08:00 97.0 89 18 130/76 (94) 98 01/18/19 04:00 98.1 85 18 139/98 (112) 98 01/18/19 00:00 98.4 97 20 108/58 (75) 98 01/17/19 21:00 Nasal Cannula 3.0 Nasal Cannula 3.0 01/17/19 20:00 98.4 65 20 127/81 (96) 100 Intake and Output 01/17/19 01/18/19 19:00 07:00 Intake Total 1800 ml 480 ml Balance 1800 ml 480 ml Intake Oral 480 ml Other 1800 ml # Voids 4 # Bowel Movements 1 Height (Feet): 5 Height (Inches): 10.00 Weight (Pounds): 495 General Appearance: no apparent distress Objective no change Devante Taylor MD Jan 18, 2019 17:06
[2019-01-18] MEDS: Hydrocortisone 1% Cr 30gm TOPIC PRN (18:07)
--- NOTE | 2019-01-18 19:20 | NUR ---
HAND-OFF: Report given to MICAELA Reyes.
--- NOTE | 2019-01-18 19:21 | NUR ---
NURSE NOTES: Got report from Erika HINOJOSA. Pt in stable condition. Denies any pain. No s/s of distress or discomfort noted. Pt resting in bed comfortably. Bed in low and locked posiiton, call light within reach, bedside table within reach. Continue to monitor.
[2019-01-18 20:00] VITALS: BP 117/90
[2019-01-18] MEDS: Dyna-Hex 2% Top Sol 2oz TOPIC SCH (20:00)
[2019-01-19] VITALS: BP 136/73
--- NOTE | 2019-01-19 03:32 | Neurology Progress Note ---
Interim History Interim History ROS Limited/Unobtainable: No Complaints: Seizures/ Weakness Events: This visit was performed on January 19, [address] Amador Brewster Interim History No new events Review of Systems All Systems: reviewed and negative except above Objective Physical Exam Last Vital Signs Date Time Temp Pulse Resp B/P (MAP) Pulse Ox O2 Delivery O2 Flow Rate FiO2 01/19/19 02:19 98.8 01/19/19 00:00 92 19 136/73 (94) 95 01/18/19 21:00 Room Air Room Air 01/17/19 21:00 3.0 3.0 01/14/19 08:23 21 General: well developed, other - Morbidly obese Head: normocophalic Neck: no rigidity EENT: benign Neurologic Exam Mental Status: awake, alert, oriented x4, normal cognition, good mathematical skills, normal recent memory, normal remote memory, preserved visuospatial function Speech: normal speech, no dysarthia Language: normal language, no aphasia Cranial Nerve II: fundus normal, visual bonilla, no papilledema Cranial Nerves III, IV, : PERRLA, EOMI, pupils Cranial Nerve V: normal facial sensations, temporales function normal, masseters function normal, pterygoids function normal Cranial Nerve VII: normal facial expressions, other Cranial Nerve VIII: normal hearing, no nystagmus Cranial Nerve IX: normal palate elevation, gag response Cranial Nerve X: no voice hoarseness Cranial Nerve XI: SCM symmetric, trapezii function normal Cranial Nerve XII: tongue midline, no tongue atrophy/fasciculations Motor System: normal muscle tone, no involuntary movement, no muscle wasting Sensory: normal pinprick, normal light touch, normal position sense, normal graphesthesia Coordination: normal heel to villarreal bilaterally, negative Romberg test Deep Tendon Reflexes: 1+ bicep (L), 1+ bicep (R), 1+ tricep (L), 1+ tricep (R) , 1+ brachioradialis (L), 1+ brachioradialis (R), 1+ knee (L), 1+ knee (R), 1+ ankle (L), 1+ ankle (R) Reflexes: flexor plantar (L), flexor plantar (R); extensor plantar (L), extensor plantar (R) Stance: other - Broad based Gait: stable Objective Left arm, predominantly hand weakness at this time. Alert and oriented Ambulatory with cellulitis persisting on BLE He does not have proximal left arm weakness at this time, mild facial weakness, tongue deviated on exam Impression/Recommendations Problems: (1) Seizures Assessment & Plan: Keppra 2000mg BID PO Maintain SBP<140 Q4 Hour Neuro Checks Ativan 2mg PRN for seizure activity CT Head w/o contrast when able to rule out CVA - also for consideration of MRI if CT negative. - low suspicion of CVA due to normotensive status without risk factors of elevated BP/ HgBA1c or thyroid dysfunction. Na 135-145 Continue pain management - Lyrica 100mg TID - Continue Gabapentin 600mg TID Intense PT recommended EEG negative for seizures, but consistent with mild encephalopathy. Same on Repeat Correct hypocalcemia (2) Morbid obesity (3) COPD (chronic obstructive pulmonary disease) (4) Uncontrolled seizures (5) Left-sided weakness Assessment & Plan: No seizure activity captured on EEG but mild to moderate degree of encephalopathy seen. Repeat EEG same as previous (6) Knee osteomyelits, right Status: stable, progressing, tolerating diet Recommendations Q4 hour Neuro Obs - NO NIGHTTIME OBS if stable Prevent delirium Maintain regular sleep schedule and reduce nighttime activities such as observations (if unnecessary) Maintain Keppra dose at 2g BID, no additional meds at this time. Awaiting Bariatric Surgery planned for January 25, 2019- declined by [facility]. [place] [facility] [place] SBP<140 Vicky Taylor N.P. Jan 19, 2019 03:32
[2019-01-19 04:06] VITALS: BP 131/77
--- NOTE | 2019-01-19 07:11 | NUR ---
HAND-OFF: Report given to Erika HINOJOSA. Endorsed plan of care.
--- NOTE | 2019-01-19 07:12 | NUR ---
NURSE NOTES: RN received pt in stable condition from MICAELA Shah. Pt alert in bed eating breakfast. No s/s of acute distress or SOB. Dressing changed and pt cleaned in evening. Pt requesting pain med Q4. PICC line asymptomatic and flushing. Bed in low, locked position, call light within reach. Will continue plan of care.
[2019-01-19 08:00] VITALS: BP 141/57
[2019-01-19] MEDS: Lyrica 50mg cap ORAL SCH ×3 (08:30→17:28)
[2019-01-19] MEDS: Magnesium Oxide 400mg tab ORAL SCH ×3 (08:30→17:29)
[2019-01-19] MEDS: Hydrocortisone 1% Cr 30gm TOPIC PRN (08:31)
[2019-01-19] MEDS: Losartan 25mg tab ORAL SCH (08:31)
--- NOTE | 2019-01-19 10:16 | NUR ---
NURSE NOTES: PICC line dressing changed.
--- NOTE | 2019-01-19 11:46 | General Progress Note ---
Assessment/Plan Problem List: (1) Abdominal pannus ICD Codes: E65 - Localized adiposity SNOMED: 7370120502878 (2) Peripheral edema ICD Codes: R60.9 - Edema, unspecified SNOMED: 153427451 (3) Abdominal wall cellulitis ICD Codes: L03.311 - Cellulitis of abdominal wall SNOMED: 73048658 (4) Leg pain ICD Codes: M79.606 - Pain in leg, unspecified SNOMED: 29584836 (5) COPD (chronic obstructive pulmonary disease) ICD Codes: J44.9 - Chronic obstructive pulmonary disease, unspecified SNOMED: 60405009 (6) Seizures ICD Codes: R56.9 - Unspecified convulsions SNOMED: 79831695 (7) Morbid obesity ICD Codes: E66.01 - Morbid (severe) obesity due to excess calories SNOMED: 932161481 (8) Cerebrovascular accident ICD Codes: I63.9 - Cerebral infarction, unspecified SNOMED: 601231725 (9) Left-sided weakness ICD Codes: R53.1 - Weakness SNOMED: 392665515 Status: stable, progressing, tolerating diet Assessment/Plan: pt diet neuro f/u wound care abx pain control cbc bmp am dc to snf if clear Subjective Constitutional: Reports: weakness Allergies: Coded Allergies: ASPIRIN (Verified Allergy, Unknown, 07/14/18) KETOROLAC (Verified Allergy, Unknown, 07/14/18) PENICILLINS (Verified Allergy, Unknown, 12/23/18) tolerated Ancef on 08/2018 All Systems: reviewed and negative except above Subjective sleepy calm Objective Last 24 Hour Vital Signs Date Time Temp Pulse Resp B/P (MAP) Pulse Ox O2 Delivery O2 Flow Rate FiO2 01/19/19 11:11 98.7 01/19/19 09:00 Room Air Room Air 01/19/19 08:31 141/57 01/19/19 08:00 98.7 100 20 141/57 (85) 98 01/19/19 04:06 98.9 91 19 131/77 (95) 95 01/19/19 00:00 98.8 92 19 136/73 (94) 95 01/18/19 21:00 Room Air Room Air 01/18/19 20:00 97.7 100 18 117/90 (99) 95 01/18/19 16:00 98.6 73 18 120/72 (88) 97 01/18/19 12:00 98.7 83 20 151/81 (104) 99 Intake and Output 01/18/19 01/19/19 19:00 07:00 Intake Total 260 ml Balance 260 ml Intake Oral 260 ml # Voids 3 3 Height (Feet): 5 Height (Inches): 10.00 Weight (Pounds): 495 General Appearance: lethargic EENT: normal ENT inspection Neck: normal alignment Cardiovascular: normal peripheral pulses, normal rate, regular rhythm Respiratory/Chest: chest wall non-tender, lungs clear, normal breath sounds Abdomen: normal bowel sounds, soft, distended Extremities: normal inspection Edema: 1+ Arm (L), 1+ Arm (R), 1+ Leg (L), 1+ Leg (R), 1+ Pedal (L), 1+ Pedal ( R), 1+ Generalized Edema: trace edema Neurologic: responsive, motor weakness Skin: normal pigmentation, warm/dry Objective bl' villarreal dressing c&Ernesto Garcia DO Jan 19, 2019 11:46
[2019-01-19 12:00] VITALS: BP 162/71
--- NOTE | 2019-01-19 12:36 | Nephrology Progress Note ---
Assessment/Plan Problem List: (1) Hyponatremia (2) Morbid obesity (3) COPD (chronic obstructive pulmonary disease) Plan Mag IV as needed Mag PO TID Low Na resolved cont per consultants ? DC planning Subjective ROS Limited/Unobtainable: No Objective Objective Last 24 Hour Vital Signs Date Time Temp Pulse Resp B/P (MAP) Pulse Ox O2 Delivery O2 Flow Rate FiO2 01/19/19 12:00 98.5 87 20 162/71 (101) 98 01/19/19 11:11 98.7 01/19/19 09:00 Room Air Room Air 01/19/19 08:31 141/57 01/19/19 08:00 98.7 100 20 141/57 (85) 98 01/19/19 04:06 98.9 91 19 131/77 (95) 95 01/19/19 00:00 98.8 92 19 136/73 (94) 95 01/18/19 21:00 Room Air Room Air 01/18/19 20:00 97.7 100 18 117/90 (99) 95 01/18/19 16:00 98.6 73 18 120/72 (88) 97 Intake and Output 01/18/19 01/19/19 19:00 07:00 Intake Total 260 ml Balance 260 ml Intake Oral 260 ml # Voids 3 3 Height (Feet): 5 Height (Inches): 10.00 Weight (Pounds): 495 General Appearance: no apparent distress Objective no change Devante Taylor MD Jan 19, 2019 12:36
--- NOTE | 2019-01-19 13:21 | Pulmonology Progress Note ---
Assessment/Plan Problems: (1) COPD (chronic obstructive pulmonary disease) (2) Cellulitis (3) Morbid obesity (4) Peripheral edema (5) Seizures (6) Cerebrovascular accident (7) Left-sided weakness (8) Right heart failure (9) Lumbar spondylosis (10) ADALBERTO (obstructive sleep apnea) Assessment/Plan no new complains satisfied with pain meds regiment cough much better all meds /notes reviewed pt/ot on dialudid to 4 mg and add Methadone 10Q8 respiratory treatment titrate fio2 to sat of 92% dvt prophylaxis Subjective ROS Limited/Unobtainable: No Constitutional: Reports: no symptoms HEENT: Repors: no symptoms Respiratory: Reports: no symptoms Allergies: Coded Allergies: ASPIRIN (Verified Allergy, Unknown, 07/14/18) KETOROLAC (Verified Allergy, Unknown, 07/14/18) PENICILLINS (Verified Allergy, Unknown, 12/23/18) tolerated Ancef on 08/2018 Objective Last 24 Hour Vital Signs Date Time Temp Pulse Resp B/P (MAP) Pulse Ox O2 Delivery O2 Flow Rate FiO2 01/19/19 12:00 98.5 87 20 162/71 (101) 98 01/19/19 11:11 98.7 01/19/19 09:00 Room Air Room Air 01/19/19 08:31 141/57 01/19/19 08:00 98.7 100 20 141/57 (85) 98 01/19/19 04:06 98.9 91 19 131/77 (95) 95 01/19/19 00:00 98.8 92 19 136/73 (94) 95 01/18/19 21:00 Room Air Room Air 01/18/19 20:00 97.7 100 18 117/90 (99) 95 01/18/19 16:00 98.6 73 18 120/72 (88) 97 Intake and Output 01/18/19 01/19/19 19:00 07:00 Intake Total 260 ml Balance 260 ml Intake Oral 260 ml # Voids 3 3 Objective HEENT: normocephalic, atraumatic Respiratory/Chest: chest wall non-tender, lungs clear Cardiovascular: normal peripheral pulses, normal rate Abdomen: normal bowel sounds, no organomegaly, massive fat on abdomen Extremities: no cyanosis Skin: no lesions Current Medications Medications (Trade) Dose Ordered Sig/Luis Route PRN Reason Start Time Stop Time Status Last Admin Dose Admin Chlorhexidine Gluconate (Ruby-Hex 2%) 1 applic DAILY@1999 TOPIC 01/16/19 20:00 02/15/19 19:59 01/18/19 20:00 Furosemide (Lasix) 20 mg Q12HR IV 01/09/19 21:00 01/21/19 00:00 01/17/19 08:41 Hydrocortisone (Hydrocortisone) 1 applic BIDPRN PRN TOPIC Itching 01/18/19 13:45 02/17/19 13:14 01/19/19 08:31 Hydromorphone HCl (Dilaudid) 4 mg Q4H PRN IM Severe Pain (Pain Scale 7-10) 01/16/19 11:45 01/23/19 11:29 01/18/19 05:10 Hydromorphone HCl (Dilaudid) 4 mg Q4H PRN IVP Severe Pain (Pain Scale 7-10) 01/16/19 11:30 01/22/19 15:29 01/19/19 10:41 Losartan Potassium (Cozaar) 25 mg DAILY ORAL 12/29/18 13:45 01/28/19 13:44 01/19/19 08:31 Magnesium Oxide (Mag-Ox 400mg) 800 mg THREE TIMES A DAY ORAL 01/02/19 18:00 02/01/19 17:59 01/19/19 08:30 Methadone HCl (Methadone HCl) 10 mg Q6H ORAL 01/17/19 15:00 01/24/19 14:59 01/19/19 08:30 Pregabalin (Lyrica) 100 mg THREE TIMES A DAY ORAL 12/26/18 09:00 01/19/19 22:59 01/19/19 08:30 Promethazine HCl/ Codeine (Phenergan with Codeine) 5 ml Q4H PRN ORAL For Cough 12/28/18 12:00 01/27/19 11:59 01/01/19 01:34 Bill Dixon MD Jan 19, 2019 13:21
--- NOTE | 2019-01-19 14:22 | NUR ---
RD ASSESSMENT & RECOMMENDATIONS SEE CARE ACTIVITY FOR COMPLETE ASSESSMENT DAILY ESTIMATED NEEDS: Needs based on obesity, pulmonary, 107kg abw 15-20 kcals/kg 8224-4760 total kcals 1-1.5 g protein/kg 107-161 g total protein 15-25ml/kcal mL/kg 9002-1536 total fluid mLs NUTRITION DIAGNOSIS: Decreased sodium and fat intake needs R/T cardiac h/o and morbid obesity as evidenced by h/o CHF, CVA, w/ BMI>50, @230% of [place] Body Weight. CURRENT DIET:Regular PO DIET RECOMMENDATIONS: REC DIET CHANGE TO -> CARDIAC ADDITIONAL RECOMMENDATIONS: * Obtain a standing weight as able or calibrated bedscale wt for accurate * Diet change to Cardiac * Pt not receptive to diet edu at this time (reattempted 01/12) * Monitor lytes closely while on diuretics, replete as needed -> refusing lasix often noted
--- NOTE | 2019-01-19 14:36 | Infectious Diseases Prog Note ---
Assessment/Plan Assessment/Plan B/l Leg cellulitis and panniculitis - in the setting of chronic venous stasis Active infectious cellulitis essentially resolved. Now he has chronic venous stasis and neuropathic pain with poorly healing wounds. Alot off this is due to the severe swelling in his feet but also he is poorly compliant with wound care instructions. L side weakness/spasticity- thought be 2ry to seizures- r/O CVA- no active infectious process at present (pt afebrile- doubt meningitis at this moment) Afebrile No leukocytosis -CXR: No acute findings CVA HTN bipolar disorder w/ psychotic features tobacco abuse anxiety disorder chronic pain CHF seizure disorder COPD morbid obesity Dm2 HTN SNF resident Plan: - Continue to monitor off abx - Needs wound care for healing. - Patient more compliant with leg elevation and wound dressing instructions - 01/07/19 SP IV Dapto d# 14 - 01/06/19 S/P Levofloxacin #7 - 12/25 sp Bactrim #4/14 and add IV Ancef #3/14 for cellulitis - Monitor CBC/CMP, temperatures - aspiration precautions - wound care per hospital protocol Subjective Allergies: Coded Allergies: ASPIRIN (Verified Allergy, Unknown, 07/14/18) KETOROLAC (Verified Allergy, Unknown, 07/14/18) PENICILLINS (Verified Allergy, Unknown, 12/23/18) tolerated Ancef on 08/2018 Subjective afebrile no leukocytosis awaiting placement Objective Vital Signs Last 24 Hour Vital Signs Date Time Temp Pulse Resp B/P (MAP) Pulse Ox O2 Delivery O2 Flow Rate FiO2 01/19/19 14:28 Room Air Room Air 01/19/19 12:00 98.5 87 20 162/71 (101) 98 01/19/19 11:11 98.7 01/19/19 09:00 Room Air Room Air 01/19/19 08:31 141/57 01/19/19 08:00 98.7 100 20 141/57 (85) 98 01/19/19 04:06 98.9 91 19 131/77 (95) 95 01/19/19 00:00 98.8 92 19 136/73 (94) 95 01/18/19 21:00 Room Air Room Air 01/18/19 20:00 97.7 100 18 117/90 (99) 95 01/18/19 16:00 98.6 73 18 120/72 (88) 97 Height (Feet): 5 Height (Inches): 10.00 Weight (Pounds): 495 Objective GENERAL: Calm in bed, oriented x3, in slight distress, secondary to weakness. CARDIOVASCULAR: No murmurs. LUNGS: Poor air exchange. ABDOMEN: Bowel sounds distant. EXTREMITIES: Show no cyanosis or clubbing. A +3 edema in bilateral lower extremity w/ warmth, erythema, superficial ulcers and TTP. Large pannus noted in the abdomen area w/ warmth, edema and erythema NEUROLOGIC: The patient moves all extremities, slightly weak. Current Medications Medications (Trade) Dose Ordered Sig/Luis Route PRN Reason Start Time Stop Time Status Last Admin Dose Admin Chlorhexidine Gluconate (Ruby-Hex 2%) 1 applic DAILY@1999 TOPIC 01/16/19 20:00 02/15/19 19:59 01/18/19 20:00 Furosemide (Lasix) 20 mg Q12HR IV 01/09/19 21:00 01/21/19 00:00 01/17/19 08:41 Hydrocortisone (Hydrocortisone) 1 applic BIDPRN PRN TOPIC Itching 01/18/19 13:45 02/17/19 13:14 01/19/19 08:31 Hydromorphone HCl (Dilaudid) 4 mg Q4H PRN IM Severe Pain (Pain Scale 7-10) 01/16/19 11:45 01/23/19 11:29 01/18/19 05:10 Hydromorphone HCl (Dilaudid) 4 mg Q4H PRN IVP Severe Pain (Pain Scale 7-10) 01/16/19 11:30 01/22/19 15:29 01/19/19 10:41 Losartan Potassium (Cozaar) 25 mg DAILY ORAL 12/29/18 13:45 01/28/19 13:44 01/19/19 08:31 Magnesium Oxide (Mag-Ox 400mg) 800 mg THREE TIMES A DAY ORAL 01/02/19 18:00 02/01/19 17:59 01/19/19 13:20 Methadone HCl (Methadone HCl) 10 mg Q6H ORAL 01/17/19 15:00 01/24/19 14:59 01/19/19 14:21 Pregabalin (Lyrica) 100 mg THREE TIMES A DAY ORAL 12/26/18 09:00 01/19/19 22:59 01/19/19 13:22 Promethazine HCl/ Codeine (Phenergan with Codeine) 5 ml Q4H PRN ORAL For Cough 12/28/18 12:00 01/27/19 11:59 01/01/19 01:34 Alexa Patterson M.D. Jan 19, 2019 14:36
--- NOTE | 2019-01-19 14:39 | NUR ---
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
[2019-01-19 16:00] VITALS: BP 141/82
--- NOTE | 2019-01-19 19:29 | NUR ---
HAND-OFF: Report given to MICAELA Vázquez.
--- NOTE | 2019-01-19 19:30 | NUR ---
NURSE NOTES: Received pt from MICAELA Grayson. Pt awake, alert, and c/o pain. Bed in lowest position. Call light within reach. Will continue to monitor.
[2019-01-19 20:00] VITALS: BP 141/80
[2019-01-19] MEDS: Dyna-Hex 2% Top Sol 2oz TOPIC SCH (20:00)
--- NOTE | 2019-01-19 20:15 | Progress Note ---
DATE: 01/19/2019 SUBJECTIVE: This is a 53-year-old male patient, rule out CVA. This patient is very depressed, confused, and mood labile. He has got no logical plan for his own self-care. He is very anxious and irritable, worsened by stress of his medical illness. That is why, his attending has requested daily psychiatric consultation. MENTAL STATUS EXAMINATION: This is a 53-year-old male. Appearance is disheveled. Attitude, irritable and agitated. Affect, guarded and restricted. Intellect poor. Mood, depressed and anxious. Motor activity, psychomotor agitation. Attention span is poor. Orientation x2. Speech is low volume and slurred. Thought process, disorganized and illogical. Insight and judgment are poor. DIAGNOSIS: Major depressive disorder, mild, recurrent, rule out generalized anxiety disorder. PLAN: We will continue to be treated for anxiety to reduce anxiety and agitation and 20 minutes of cognitive behavioral therapy to help him identify his automatic negative thoughts, help him convert his negative thoughts to more positive thoughts to reduce depression, anxiety, and mood lability. Chart reviewed. Discussed with staff. Seen and assessed at bedside. Laney Mcghee M.D. DR: GUTIERREZ JOB#: [id number] CC:
--- NOTE | 2019-01-19 20:37 | NUR ---
NURSE NOTES: pt refused lasix because pt doesn't want to "urinate alot" at night. When offered to notify MD to change the frequency hours, pt refused. Will continue to monitor.
[2019-01-20] VITALS: BP 157/75
--- NOTE | 2019-01-20 01:57 | Neurology Progress Note ---
Interim History Interim History ROS Limited/Unobtainable: No Complaints: Seizures/ Weakness Events: This visit was performed on January 20, [address] Amador Brewster Interim History Some intertrigo rash at groin and cellulitis over patients abdomen reported, oozing and uncomfortable with odor - left hand spasm completely gone and no seizures reported Review of Systems All Systems: reviewed and negative except above Objective Physical Exam Last Vital Signs Date Time Temp Pulse Resp B/P (MAP) Pulse Ox O2 Delivery O2 Flow Rate FiO2 01/19/19 20:00 98.1 96 20 141/80 (100) 97 01/19/19 14:28 Room Air Room Air 01/17/19 21:00 3.0 3.0 01/14/19 08:23 21 General: well developed, other - Morbidly obese Head: normocophalic Neck: no rigidity EENT: benign Neurologic Exam Mental Status: awake, alert, oriented x4, normal cognition, good mathematical skills, normal recent memory, normal remote memory, preserved visuospatial function Speech: normal speech, no dysarthia Language: normal language, no aphasia Cranial Nerve II: fundus normal, visual bonilla, no papilledema Cranial Nerves III, IV, : PERRLA, EOMI, pupils Cranial Nerve V: normal facial sensations, temporales function normal, masseters function normal, pterygoids function normal Cranial Nerve VII: normal facial expressions, other Cranial Nerve VIII: normal hearing, no nystagmus Cranial Nerve IX: normal palate elevation, gag response Cranial Nerve X: no voice hoarseness Cranial Nerve XI: SCM symmetric, trapezii function normal Cranial Nerve XII: tongue midline, no tongue atrophy/fasciculations Motor System: normal muscle tone, no involuntary movement, no muscle wasting Sensory: normal pinprick, normal light touch, normal position sense, normal graphesthesia Coordination: normal heel to villarreal bilaterally, negative Romberg test Deep Tendon Reflexes: 1+ bicep (L), 1+ bicep (R), 1+ tricep (L), 1+ tricep (R) , 1+ brachioradialis (L), 1+ brachioradialis (R), 1+ knee (L), 1+ knee (R), 1+ ankle (L), 1+ ankle (R) Reflexes: flexor plantar (L), flexor plantar (R); extensor plantar (L), extensor plantar (R) Stance: other - Broad based Gait: stable Objective Left arm, predominantly hand weakness at this time. Significantly improved dexterity and movement at this time . Alert and oriented Ambulatory with cellulitis persisting on BLE He does not have proximal left arm weakness at this time, no facial weakness and tongue is midline. Impression/Recommendations Problems: (1) Seizures Assessment & Plan: Keppra 2000mg BID PO Maintain SBP<140 Q4 Hour Neuro Checks Ativan 2mg PRN for seizure activity CT Head w/o contrast when able to rule out CVA - also for consideration of MRI if CT negative. - low suspicion of CVA due to normotensive status without risk factors of elevated BP/ HgBA1c or thyroid dysfunction. Na 135-145 Continue pain management - Lyrica 100mg TID - Continue Gabapentin 600mg TID Intense PT recommended EEG negative for seizures, but consistent with mild encephalopathy. Same on Repeat (2) Morbid obesity (3) COPD (chronic obstructive pulmonary disease) (4) Uncontrolled seizures (5) Left-sided weakness Assessment & Plan: No seizure activity captured on EEG but mild to moderate degree of encephalopathy seen. Repeat EEG same as previous (6) Knee osteomyelits, right Status: stable, progressing, tolerating diet Recommendations Q4 hour Neuro Obs - NO NIGHTTIME OBS if stable Prevent delirium Maintain regular sleep schedule and reduce nighttime activities such as observations (if unnecessary) Maintain Keppra dose at 2g BID, no additional meds at this time. Awaiting Bariatric Surgery planned for January 25, 2019- declined by [facility]. Will stay at [facility] [place] pending surgery. SBP<140 Check WBCs Add lidocaine/ antifungal creams for patient's skin while he awaits surgery No additional neuro recs at this time- stable neurologically. Vicky Taylor N.P. Jan 20, 2019 01:57
--- NOTE | 2019-01-20 03:36 | NUR ---
HAND-OFF: Report given to MICAELA Lofton. Pt stable.
[2019-01-20 04:00] VITALS: BP 149/80
--- NOTE | 2019-01-20 04:00 | NUR ---
NURSE NOTES: RECEIVED PT FROM MICAELA TRAN. PT IS AWAKE, AAOX4, ON NC 3L, NO ACUTE DISTRESS NOTED. PICC LINE ON RIGHT ARM IS INTACT AND PATENT. LAST DRESSING CHANGE ON 01/19. BED IS LOCKED AT THE LOWEST POSITION, BED ALARMS ACTIVE, SIDE RAILS UP X2. CALL LIGHT IS WITHIN REACH. WILL CONTINUE TO MONITOR.
[2019-01-20 07:01] LABS: BASOPHILS % (AUTO) 0.6 % (0.0-2.0); EOSINOPHILS % (AUTO) 1.9 % (0.0-3.0); HEMATOCRIT 35.4 % (42.0-52.0); HEMOGLOBIN 11.7 G/DL (14.2-18.0); LYMPHOCYTES % (AUTO) 26.4 % (20.0-45.0); MEAN CORPUSCULAR VOLUME 92 FL (80-99); MONOCYTES % (AUTO) 9.5 % (1.0-10.0); NEUTROPHILS % (AUTO) 61.5 % (45.0-75.0); PLATELET COUNT 265 K/UL (150-450); RED BLOOD COUNT 3.86 M/UL (4.70-6.10); RED CELL DISTRIBUTION WIDTH 13.2 % (11.6-14.8); WHITE BLOOD COUNT 9.1 K/UL (4.8-10.8)
[2019-01-20 07:11] LABS: ANION GAP 8 mmol/L (5-15); BLOOD UREA NITROGEN 17 mg/dL (7-18); CALCIUM 9.1 MG/DL (8.5-10.1); CARBON DIOXIDE 29 MMOL/L (21-32); CHLORIDE 104 MMOL/L (98-107); CREATININE 1.1 MG/DL (0.55-1.30); POTASSIUM 4.5 MMOL/L (3.5-5.1); SODIUM 141 MMOL/L (136-145)
--- NOTE | 2019-01-20 07:54 | NUR ---
NURSE NOTES: Received report from Kirsty, RN. Patient in bed resting, no active s/s cardiac, respiratory distress noticed at this time. Patient refused padded side rails for seizure precaution. Patient c/o redness on groin area. Endorsed patient planing to get surgery, panniculectomy. PICC line on right upper arm, asymptomatic, patent, intact, dressing changed on 01/19/19. Bed in lowest position, side rails upx2, call light within reach. Will continue to monitor.
--- NOTE | 2019-01-20 07:57 | NUR ---
HAND-OFF: Report given to MICAELA CONDE.
[2019-01-20 08:00] VITALS: BP 148/80
[2019-01-20] MEDS: Losartan 25mg tab ORAL SCH (09:53)
[2019-01-20] MEDS: Magnesium Oxide 400mg tab ORAL SCH ×3 (09:53→18:09)
--- NOTE | 2019-01-20 10:35 | Pulmonology Progress Note ---
Assessment/Plan Problems: (1) COPD (chronic obstructive pulmonary disease) (2) Cellulitis (3) Morbid obesity (4) Peripheral edema (5) Seizures (6) Cerebrovascular accident (7) Left-sided weakness (8) Right heart failure (9) Lumbar spondylosis (10) ADALBERTO (obstructive sleep apnea) Assessment/Plan no new complains satisfied with pain meds regiment cough much better all meds /notes reviewed pt/ot on dialudid to 4 mg and add Methadone 10Q8 respiratory treatment titrate fio2 to sat of 92% dvt prophylaxis Subjective ROS Limited/Unobtainable: No Constitutional: Reports: no symptoms HEENT: Repors: no symptoms Respiratory: Reports: no symptoms Allergies: Coded Allergies: ASPIRIN (Verified Allergy, Unknown, 07/14/18) KETOROLAC (Verified Allergy, Unknown, 07/14/18) PENICILLINS (Verified Allergy, Unknown, 12/23/18) tolerated Ancef on 08/2018 Objective Last 24 Hour Vital Signs Date Time Temp Pulse Resp B/P (MAP) Pulse Ox O2 Delivery O2 Flow Rate FiO2 01/20/19 09:53 148/80 01/20/19 09:00 Room Air Room Air 01/20/19 08:00 98.0 122 18 148/80 (102) 93 01/20/19 04:00 98.7 93 18 149/80 (103) 97 01/20/19 00:00 98.4 98 20 157/75 (102) 100 01/19/19 21:00 Room Air Room Air 01/19/19 20:00 98.1 96 20 141/80 (100) 97 01/19/19 19:07 98.5 01/19/19 16:00 98.5 89 20 141/82 (101) 94 01/19/19 14:28 Room Air Room Air 01/19/19 12:00 98.5 87 20 162/71 (101) 98 Intake and Output 01/19/19 01/20/19 18:59 06:59 Intake Total 1340 ml Balance 1340 ml Intake Oral 1340 ml # Voids 6 2 # Bowel Movements 4 3 Objective HEENT: normocephalic, atraumatic Respiratory/Chest: chest wall non-tender, lungs clear Cardiovascular: normal peripheral pulses, normal rate Abdomen: normal bowel sounds, no organomegaly, massive fat on abdomen Extremities: no cyanosis Skin: no lesions Laboratory Tests 01/20/19 05:50: White Blood Count 9.1, Red Blood Count 3.86L, Hemoglobin 11.7L, Hematocrit 35.4L , Mean Corpuscular Volume 92, Mean Corpuscular Hemoglobin 30.2, Mean Corpuscular Hemoglobin Concent 33.0, Red Cell Distribution Width 13.2, Platelet Count 265, Mean Platelet Volume 4.8L, Neutrophils (%) (Auto) 61.5, Lymphocytes ( %) (Auto) 26.4, Monocytes (%) (Auto) 9.5, Eosinophils (%) (Auto) 1.9, Basophils (%) (Auto) 0.6, Sodium Level 141, Potassium Level 4.5, Chloride Level 104, Carbon Dioxide Level 29, Anion Gap 8, Blood Urea Nitrogen 17, Creatinine 1.1, Estimat Glomerular Filtration Rate > 60, Glucose Level 99, Calcium Level 9.1 Current Medications Medications (Trade) Dose Ordered Sig/Luis Route PRN Reason Start Time Stop Time Status Last Admin Dose Admin Chlorhexidine Gluconate (Ruby-Hex 2%) 1 applic DAILY@1999 TOPIC 01/16/19 20:00 02/15/19 19:59 01/19/19 20:00 Furosemide (Lasix) 20 mg Q12HR IV 01/09/19 21:00 01/21/19 00:00 01/20/19 09:53 Hydrocortisone (Hydrocortisone) 1 applic BIDPRN PRN TOPIC Itching 01/18/19 13:45 02/17/19 13:14 01/19/19 08:31 Hydromorphone HCl (Dilaudid) 4 mg Q4H PRN IM Severe Pain (Pain Scale 7-10) 01/16/19 11:45 01/23/19 11:29 01/20/19 07:09 Hydromorphone HCl (Dilaudid) 4 mg Q4H PRN IVP Severe Pain (Pain Scale 7-10) 01/16/19 11:30 01/22/19 15:29 01/20/19 02:49 Ketoconazole (Nizoral 2% Cream) 1 applic BID TOPIC 01/20/19 09:00 02/19/19 08:59 01/20/19 09:52 Losartan Potassium (Cozaar) 25 mg DAILY ORAL 12/29/18 13:45 01/28/19 13:44 01/20/19 09:53 Magnesium Oxide (Mag-Ox 400mg) 800 mg THREE TIMES A DAY ORAL 01/02/19 18:00 02/01/19 17:59 01/20/19 09:53 Methadone HCl (Methadone HCl) 10 mg Q6H ORAL 01/17/19 15:00 01/24/19 14:59 01/20/19 09:52 Promethazine HCl/ Codeine (Phenergan with Codeine) 5 ml Q4H PRN ORAL For Cough 12/28/18 12:00 01/27/19 11:59 01/01/19 01:34 Bill Dixon MD Jan 20, 2019 10:35
--- NOTE | 2019-01-20 11:13 | NUR ---
Social Service Note WENDIE spoke with Kirby at [facility] [phone]. Per Kirby since patient's bed hold they have not had an available clean male bed for readmission. Kirby states facility is willing to accept however no beds. Kirby states he will speak with sister facilities to try to accommodate. WENDIE left a message for Dr. Nicole's computer programming professor Marta [phone], no return call at this time. Referral faxed to Za computer programming professor with [facility], (p) [phone] (f). Barriers to placement: Age 53 insurance medicare B only and straight [facility] placement Weight 492 lbs Referral placed with admitting for [facility] to assist patient in obtaining a HMO plan. Will monitor and follow up.
[2019-01-20 12:00] VITALS: BP 150/90
--- NOTE | 2019-01-20 14:22 | General Progress Note ---
Assessment/Plan Problem List: (1) Abdominal pannus ICD Codes: E65 - Localized adiposity SNOMED: 3304012142301 (2) Peripheral edema ICD Codes: R60.9 - Edema, unspecified SNOMED: 259544222 (3) Abdominal wall cellulitis ICD Codes: L03.311 - Cellulitis of abdominal wall SNOMED: 81509542 (4) Leg pain ICD Codes: M79.606 - Pain in leg, unspecified SNOMED: 33786038 (5) COPD (chronic obstructive pulmonary disease) ICD Codes: J44.9 - Chronic obstructive pulmonary disease, unspecified SNOMED: 04684151 (6) Seizures ICD Codes: R56.9 - Unspecified convulsions SNOMED: 65163607 (7) Morbid obesity ICD Codes: E66.01 - Morbid (severe) obesity due to excess calories SNOMED: 781321806 (8) Cerebrovascular accident ICD Codes: I63.9 - Cerebral infarction, unspecified SNOMED: 511624961 (9) Left-sided weakness ICD Codes: R53.1 - Weakness SNOMED: 258342027 Status: stable, progressing, tolerating diet Assessment/Plan: pt diet neuro f/u wound care abx pain control cbc bmp am dc to snf if clear Subjective Constitutional: Reports: weakness Allergies: Coded Allergies: ASPIRIN (Verified Allergy, Unknown, 07/14/18) KETOROLAC (Verified Allergy, Unknown, 07/14/18) PENICILLINS (Verified Allergy, Unknown, 12/23/18) tolerated Ancef on 08/2018 All Systems: reviewed and negative except above Subjective sleepy calm Objective Last 24 Hour Vital Signs Date Time Temp Pulse Resp B/P (MAP) Pulse Ox O2 Delivery O2 Flow Rate FiO2 01/20/19 12:00 97.9 102 19 150/90 (110) 95 01/20/19 09:53 148/80 01/20/19 09:00 Room Air Room Air 01/20/19 08:00 98.0 122 18 148/80 (102) 93 01/20/19 04:00 98.7 93 18 149/80 (103) 97 01/20/19 00:00 98.4 98 20 157/75 (102) 100 01/19/19 21:00 Room Air Room Air 01/19/19 20:00 98.1 96 20 141/80 (100) 97 01/19/19 19:07 98.5 01/19/19 16:00 98.5 89 20 141/82 (101) 94 01/19/19 14:28 Room Air Room Air Intake and Output 01/19/19 01/20/19 19:00 07:00 Intake Total 1340 ml Balance 1340 ml Intake Oral 1340 ml # Voids 6 2 # Bowel Movements 4 3 Laboratory Tests 01/20/19 05:50: White Blood Count 9.1, Red Blood Count 3.86L, Hemoglobin 11.7L, Hematocrit 35.4L , Mean Corpuscular Volume 92, Mean Corpuscular Hemoglobin 30.2, Mean Corpuscular Hemoglobin Concent 33.0, Red Cell Distribution Width 13.2, Platelet Count 265, Mean Platelet Volume 4.8L, Neutrophils (%) (Auto) 61.5, Lymphocytes ( %) (Auto) 26.4, Monocytes (%) (Auto) 9.5, Eosinophils (%) (Auto) 1.9, Basophils (%) (Auto) 0.6, Sodium Level 141, Potassium Level 4.5, Chloride Level 104, Carbon Dioxide Level 29, Anion Gap 8, Blood Urea Nitrogen 17, Creatinine 1.1, Estimat Glomerular Filtration Rate > 60, Glucose Level 99, Calcium Level 9.1 Height (Feet): 5 Height (Inches): 10.00 Weight (Pounds): 495 General Appearance: lethargic EENT: normal ENT inspection Neck: normal alignment Cardiovascular: normal peripheral pulses, normal rate, regular rhythm Respiratory/Chest: chest wall non-tender, lungs clear, normal breath sounds Abdomen: normal bowel sounds, soft, distended Extremities: normal inspection Edema: 1+ Arm (L), 1+ Arm (R), 1+ Leg (L), 1+ Leg (R), 1+ Pedal (L), 1+ Pedal ( R), 1+ Generalized Edema: trace edema Neurologic: responsive, motor weakness Skin: normal pigmentation, warm/dry Objective bl' villarreal dressing c&Ernesto Garcia DO Jan 20, 2019 14:22
--- NOTE | 2019-01-20 14:35 | NUR ---
ACETYLENE CYLINDER [employer] NOTES FAXED REFERRAL TO [facility]- THEY CANT ACCEPT PATIENT BECAUSE OF THE INSURANCE BUT THEY WOULD CONSIDER IF PATIENT HAD MANAGED MEDICAL FAXED REFERRAL TO [facility] WILL FOLLOW UP Addendum: 01/21/19 at 1634 by Klarissa Garvey LVN [facility] CANNOT ACCEPT PATIENT SPOKE WITH BARBER SHE SAID "PT. CASE IS TOO COMPLICATED"
--- NOTE | 2019-01-20 14:43 | NUR ---
HELP DESK SPECIALISTNURSING SPECIALIST SI:KRYSTA CLIFFORD . COPD VS: BP 150/90, P 122, T 98.4, RR 20, SpO2 93 RBC 3.86, H&H 11.7/35.4 IS:MAGNESIUM OXIDE 800mg COZAAR 25mg DILAUDID 4mg METHADONE 10mg LASIX 20mg IV LYRICA 100mg MED/SURG STATUS
[2019-01-20 16:00] VITALS: BP 154/77
--- NOTE | 2019-01-20 16:25 | Infectious Diseases Prog Note ---
Assessment/Plan Assessment/Plan B/l Leg cellulitis and panniculitis - in the setting of chronic venous stasis Active infectious cellulitis essentially resolved. Now he has chronic venous stasis and neuropathic pain with poorly healing wounds. Alot off this is due to the severe swelling in his feet but also he is poorly compliant with wound care instructions. L side weakness/spasticity- thought be 2ry to seizures- r/O CVA- no active infectious process at present (pt afebrile- doubt meningitis at this moment) Afebrile No leukocytosis -CXR: No acute findings CVA HTN bipolar disorder w/ psychotic features tobacco abuse anxiety disorder chronic pain CHF seizure disorder COPD morbid obesity Dm2 HTN SNF resident Plan: - Continue to monitor off abx - Needs wound care for healing. - Patient more compliant with leg elevation and wound dressing instructions - 01/07/19 SP IV Dapto d# 14 - 01/06/19 S/P Levofloxacin #7 - 12/25 sp Bactrim #4/14 and add IV Ancef #3/14 for cellulitis - Monitor CBC/CMP, temperatures - aspiration precautions - wound care per hospital protocol Subjective Allergies: Coded Allergies: ASPIRIN (Verified Allergy, Unknown, 07/14/18) KETOROLAC (Verified Allergy, Unknown, 07/14/18) PENICILLINS (Verified Allergy, Unknown, 12/23/18) tolerated Ancef on 08/2018 Subjective afebrile no leukocytosis awaiting placement Objective Vital Signs Last 24 Hour Vital Signs Date Time Temp Pulse Resp B/P (MAP) Pulse Ox O2 Delivery O2 Flow Rate FiO2 01/20/19 16:00 98.7 94 19 154/77 (102) 100 01/20/19 12:00 97.9 102 19 150/90 (110) 95 01/20/19 09:53 148/80 01/20/19 09:00 Room Air Room Air 01/20/19 08:00 98.0 122 18 148/80 (102) 93 01/20/19 04:00 98.7 93 18 149/80 (103) 97 01/20/19 00:00 98.4 98 20 157/75 (102) 100 01/19/19 21:00 Room Air Room Air 01/19/19 20:00 98.1 96 20 141/80 (100) 97 01/19/19 19:07 98.5 Height (Feet): 5 Height (Inches): 10.00 Weight (Pounds): 495 Objective GENERAL: Calm in bed, oriented x3, in slight distress, secondary to weakness. CARDIOVASCULAR: No murmurs. LUNGS: Poor air exchange. ABDOMEN: Bowel sounds distant. EXTREMITIES: Show no cyanosis or clubbing. A +3 edema in bilateral lower extremity w/ warmth, erythema, superficial ulcers and TTP. Large pannus noted in the abdomen area w/ warmth, edema and erythema NEUROLOGIC: The patient moves all extremities, slightly weak. Laboratory Tests Test 01/20/19 05:50 White Blood Count 9.1 K/UL (4.8-10.8) Red Blood Count 3.86 M/UL (4.70-6.10) L Hemoglobin 11.7 G/DL (14.2-18.0) L Hematocrit 35.4 % (42.0-52.0) L Mean Corpuscular Volume 92 FL (80-99) Mean Corpuscular Hemoglobin 30.2 PG (27.0-31.0) Mean Corpuscular Hemoglobin Concent 33.0 G/DL (32.0-36.0) Red Cell Distribution Width 13.2 % (11.6-14.8) Platelet Count 265 K/UL (150-450) Mean Platelet Volume 4.8 FL (6.5-10.1) L Neutrophils (%) (Auto) 61.5 % (45.0-75.0) Lymphocytes (%) (Auto) 26.4 % (20.0-45.0) Monocytes (%) (Auto) 9.5 % (1.0-10.0) Eosinophils (%) (Auto) 1.9 % (0.0-3.0) Basophils (%) (Auto) 0.6 % (0.0-2.0) Sodium Level 141 MMOL/L (136-145) Potassium Level 4.5 MMOL/L (3.5-5.1) Chloride Level 104 MMOL/L (98-107) Carbon Dioxide Level 29 MMOL/L (21-32) Anion Gap 8 mmol/L (5-15) Blood Urea Nitrogen 17 mg/dL (7-18) Creatinine 1.1 MG/DL (0.55-1.30) Estimat Glomerular Filtration Rate > 60 mL/min (>60) Glucose Level 99 MG/DL (74-106) Calcium Level 9.1 MG/DL (8.5-10.1) Current Medications Medications (Trade) Dose Ordered Sig/Luis Route PRN Reason Start Time Stop Time Status Last Admin Dose Admin Chlorhexidine Gluconate (Ruby-Hex 2%) 1 applic DAILY@1999 TOPIC 01/16/19 20:00 02/15/19 19:59 01/19/19 20:00 Furosemide (Lasix) 20 mg Q12HR IV 01/09/19 21:00 01/21/19 00:00 01/20/19 09:53 Hydrocortisone (Hydrocortisone) 1 applic BIDPRN PRN TOPIC Itching 01/18/19 13:45 02/17/19 13:14 01/19/19 08:31 Hydromorphone HCl (Dilaudid) 4 mg Q4H PRN IM Severe Pain (Pain Scale 7-10) 01/16/19 11:45 01/23/19 11:29 01/20/19 07:09 Hydromorphone HCl (Dilaudid) 4 mg Q4H PRN IVP Severe Pain (Pain Scale 7-10) 01/16/19 11:30 01/22/19 15:29 01/20/19 15:32 Ketoconazole (Nizoral 2% Cream) 1 applic BID TOPIC 01/20/19 09:00 02/19/19 08:59 01/20/19 09:52 Losartan Potassium (Cozaar) 25 mg DAILY ORAL 12/29/18 13:45 01/28/19 13:44 01/20/19 09:53 Magnesium Oxide (Mag-Ox 400mg) 800 mg THREE TIMES A DAY ORAL 01/02/19 18:00 02/01/19 17:59 01/20/19 13:39 Methadone HCl (Methadone HCl) 10 mg Q6H ORAL 01/17/19 15:00 01/24/19 14:59 01/20/19 15:31 Promethazine HCl/ Codeine (Phenergan with Codeine) 5 ml Q4H PRN ORAL For Cough 12/28/18 12:00 01/27/19 11:59 01/01/19 01:34 Alexa Patterson M.D. Jan 20, 2019 16:25
--- NOTE | 2019-01-20 16:30 | Progress Note ---
DATE: 01/20/2019 SUBJECTIVE: This is a 53-year-old male patient, rule out CVA. He has got lot of anxiety, depression, worsened by stress of his medical illness. MENTAL STATUS EXAMINATION: The patient is a 53-year-old male. Appearance is disheveled. Attitude, irritable and agitated. Affect, guarded and restricted. Intellect poor. Mood, depressed and anxious. Motor activity, psychomotor agitation. Attention span is poor. Orientation x2. Speech is pressured. Thought process, disorganized and illogical. Insight and judgment are poor. DIAGNOSIS: Major depressive disorder, mild, recurrent, without psychotic features. PLAN: Continue to work with to reduce his depression and anxiety. A 20 minutes of cognitive behavioral therapy to help him identify his automatic negative thoughts, help him convert his negative thoughts to more positive thoughts to reduce depression, anxiety, and mood lability. Chart was reviewed. Discussed with staff. Seen and assessed in his room. Laney Mcghee M.D. DR: Doretha JOB#: [id number] CC:
--- NOTE | 2019-01-20 17:28 | Nephrology Progress Note ---
Assessment/Plan Problem List: (1) Hyponatremia (2) Morbid obesity (3) COPD (chronic obstructive pulmonary disease) Plan Mag IV as needed Mag PO TID Low Na resolved cont per consultants ? DC planning Subjective ROS Limited/Unobtainable: No Objective Objective Last 24 Hour Vital Signs Date Time Temp Pulse Resp B/P (MAP) Pulse Ox O2 Delivery O2 Flow Rate FiO2 01/20/19 16:00 98.7 94 19 154/77 (102) 100 01/20/19 12:00 97.9 102 19 150/90 (110) 95 01/20/19 09:53 148/80 01/20/19 09:00 Room Air Room Air 01/20/19 08:00 98.0 122 18 148/80 (102) 93 01/20/19 04:00 98.7 93 18 149/80 (103) 97 01/20/19 00:00 98.4 98 20 157/75 (102) 100 01/19/19 21:00 Room Air Room Air 01/19/19 20:00 98.1 96 20 141/80 (100) 97 01/19/19 19:07 98.5 Intake and Output 01/19/19 01/20/19 19:00 07:00 Intake Total 1340 ml Balance 1340 ml Intake Oral 1340 ml # Voids 6 2 # Bowel Movements 4 3 Laboratory Tests 01/20/19 05:50: White Blood Count 9.1, Red Blood Count 3.86L, Hemoglobin 11.7L, Hematocrit 35.4L , Mean Corpuscular Volume 92, Mean Corpuscular Hemoglobin 30.2, Mean Corpuscular Hemoglobin Concent 33.0, Red Cell Distribution Width 13.2, Platelet Count 265, Mean Platelet Volume 4.8L, Neutrophils (%) (Auto) 61.5, Lymphocytes ( %) (Auto) 26.4, Monocytes (%) (Auto) 9.5, Eosinophils (%) (Auto) 1.9, Basophils (%) (Auto) 0.6, Sodium Level 141, Potassium Level 4.5, Chloride Level 104, Carbon Dioxide Level 29, Anion Gap 8, Blood Urea Nitrogen 17, Creatinine 1.1, Estimat Glomerular Filtration Rate > 60, Glucose Level 99, Calcium Level 9.1 Height (Feet): 5 Height (Inches): 10.00 Weight (Pounds): 495 General Appearance: no apparent distress Objective no change Devante Taylor MD Jan 20, 2019 17:28
--- NOTE | 2019-01-20 19:10 | NUR ---
HAND-OFF: Report given to MICAELA Lofton.
--- NOTE | 2019-01-20 19:20 | NUR ---
NURSE NOTES: NURSE NOTES: RECEIVED PT FROM LASHAUN RAMIREZ RN. PT IS AWAKE, AAOX4, ON NC 2L, UP IN BED WATCHING TV. DENIES SOB. C/O PAIN 10/10 ON LEFT LEG, ABDOMEN AND GROIN/ SCROTUM AREA. PT REFUSED TO HAVE SIDE RAILS PADDED FOR SEIZURE PRECAUTION. DRESSINGS ON LEFT LEG IS DRY AND INTACT. PICC LINE NOTED ON RIGHT UPPER ARM. FLUSHED. BOTH LUMENS PATENT. DRESSING WAS CHANGED ON THE 01/19. DRESSING IS INTACT AND DRY. BED IS LOCKED AT THE LOWEST POSITION, BED ALARMS ACTIVE, SIDE RAILS UP X2, AND CALL LIGHT IS WITHIN REACH. WILL CONTINUE TO MONITOR.
[2019-01-20] MEDS: Dyna-Hex 2% Top Sol 2oz TOPIC SCH (19:44)
[2019-01-20 20:00] VITALS: BP 135/90
--- NOTE | 2019-01-20 23:48 | NUR ---
NURSE NOTES: CHANGED LEFT LEG DRESSINGS.
[2019-01-21] VITALS: BP 132/94
[2019-01-21] MEDS ORDERED: LORazepam 1mg tab ORAL PRN (06:00)
--- NOTE | 2019-01-21 07:20 | NUR ---
HAND-OFF: Report given to MICAELA EMERSON.
--- NOTE | 2019-01-21 07:31 | NUR ---
NURSE NOTES: Patient received resting in bed, denies SOB at this time. Bed locked in lowest position, call light placed within reach. Will continue to monitor.
[2019-01-21 08:00] VITALS: BP 135/74
[2019-01-21] MEDS: Losartan 25mg tab ORAL SCH (08:04)
[2019-01-21] MEDS: Magnesium Oxide 400mg tab ORAL SCH ×3 (08:04→17:52)
--- NOTE | 2019-01-21 10:44 | Nephrology Progress Note ---
Assessment/Plan Problem List: (1) Hyponatremia (2) Morbid obesity (3) COPD (chronic obstructive pulmonary disease) Plan Mag IV as needed Mag PO TID Low Na resolved cont per consultants ? DC planning Subjective ROS Limited/Unobtainable: No Constitutional: Reports: malaise Objective Objective Last 24 Hour Vital Signs Date Time Temp Pulse Resp B/P (MAP) Pulse Ox O2 Delivery O2 Flow Rate FiO2 01/21/19 09:00 Room Air Room Air 01/21/19 08:04 132/94 01/21/19 08:00 98.2 101 18 135/74 (94) 99 01/21/19 04:30 98.3 01/21/19 00:00 98.3 108 20 132/94 (107) 100 01/20/19 21:00 Room Air Room Air 01/20/19 20:00 98.7 95 20 135/90 (105) 100 01/20/19 16:00 98.7 94 19 154/77 (102) 100 01/20/19 12:00 97.9 102 19 150/90 (110) 95 Intake and Output 01/20/19 01/21/19 18:59 06:59 Intake Total 2500 ml Output Total 0 ml Balance 2500 ml 0 ml Intake Oral 2500 ml Stool Total 0 ml # Voids 4 3 # Bowel Movements 1 Height (Feet): 5 Height (Inches): 10.00 Weight (Pounds): 495 General Appearance: no apparent distress Objective no change Dveante Taylor MD Jan 21, 2019 10:44
--- NOTE | 2019-01-21 11:37 | Infectious Diseases Prog Note ---
Assessment/Plan Assessment/Plan B/l Leg cellulitis and panniculitis - in the setting of chronic venous stasis Active infectious cellulitis essentially resolved. Now he has chronic venous stasis and neuropathic pain with poorly healing wounds. Alot off this is due to the severe swelling in his feet but also he is poorly compliant with wound care instructions. L side weakness/spasticity- thought be 2ry to seizures- r/O CVA- no active infectious process at present (pt afebrile- doubt meningitis at this moment) Afebrile No leukocytosis -CXR: No acute findings CVA HTN bipolar disorder w/ psychotic features tobacco abuse anxiety disorder chronic pain CHF seizure disorder COPD morbid obesity Dm2 HTN SNF resident Plan: - Continue to monitor off abx - Needs wound care for healing. - Patient more compliant with leg elevation and wound dressing instructions - 01/07/19 SP IV Dapto d# 14 - 01/06/19 S/P Levofloxacin #7 - 12/25 sp Bactrim #4/14 and add IV Ancef #3/14 for cellulitis - Monitor CBC/CMP, temperatures - aspiration precautions - wound care per hospital protocol Subjective Allergies: Coded Allergies: ASPIRIN (Verified Allergy, Unknown, 07/14/18) KETOROLAC (Verified Allergy, Unknown, 07/14/18) PENICILLINS (Verified Allergy, Unknown, 12/23/18) tolerated Ancef on 08/2018 Subjective afebrile no leukocytosis awaiting placement Objective Vital Signs Last 24 Hour Vital Signs Date Time Temp Pulse Resp B/P (MAP) Pulse Ox O2 Delivery O2 Flow Rate FiO2 01/21/19 09:00 Room Air Room Air 01/21/19 08:04 132/94 01/21/19 08:00 98.2 101 18 135/74 (94) 99 01/21/19 04:30 98.3 01/21/19 00:00 98.3 108 20 132/94 (107) 100 01/20/19 21:00 Room Air Room Air 01/20/19 20:00 98.7 95 20 135/90 (105) 100 01/20/19 16:00 98.7 94 19 154/77 (102) 100 01/20/19 12:00 97.9 102 19 150/90 (110) 95 Height (Feet): 5 Height (Inches): 10.00 Weight (Pounds): 495 Objective GENERAL: Calm in bed, oriented x3, in slight distress, secondary to weakness. CARDIOVASCULAR: No murmurs. LUNGS: Poor air exchange. ABDOMEN: Bowel sounds distant. EXTREMITIES: Show no cyanosis or clubbing. A +3 edema in bilateral lower extremity w/ warmth, erythema, superficial ulcers and TTP. Large pannus noted in the abdomen area w/ warmth, edema and erythema NEUROLOGIC: The patient moves all extremities, slightly weak. Current Medications Medications (Trade) Dose Ordered Sig/Luis Route PRN Reason Start Time Stop Time Status Last Admin Dose Admin Chlorhexidine Gluconate (Ruby-Hex 2%) 1 applic DAILY@1999 TOPIC 01/16/19 20:00 02/15/19 19:59 01/20/19 19:44 Hydrocortisone (Hydrocortisone) 1 applic BIDPRN PRN TOPIC Itching 01/18/19 13:45 02/17/19 13:14 01/19/19 08:31 Hydromorphone HCl (Dilaudid) 4 mg Q4H PRN IM Severe Pain (Pain Scale 7-10) 01/16/19 11:45 01/23/19 11:29 01/21/19 08:05 Hydromorphone HCl (Dilaudid) 4 mg Q4H PRN IVP Severe Pain (Pain Scale 7-10) 01/21/19 11:30 01/27/19 15:29 Ketoconazole (Nizoral 2% Cream) 1 applic BID TOPIC 01/20/19 09:00 02/19/19 08:59 01/21/19 08:04 Lorazepam (Ativan) 1 mg Q6H PRN ORAL For Anxiety 01/21/19 06:00 01/28/19 05:59 Losartan Potassium (Cozaar) 25 mg DAILY ORAL 12/29/18 13:45 01/28/19 13:44 01/21/19 08:04 Magnesium Oxide (Mag-Ox 400mg) 800 mg THREE TIMES A DAY ORAL 01/02/19 18:00 02/01/19 17:59 01/21/19 08:04 Methadone HCl (Methadone HCl) 10 mg Q6H ORAL 01/17/19 15:00 01/24/19 14:59 01/21/19 08:04 Promethazine HCl/ Codeine (Phenergan with Codeine) 5 ml Q4H PRN ORAL For Cough 12/28/18 12:00 01/27/19 11:59 01/01/19 01:34 Alexa Patterson M.D. Jan 21, 2019 11:37
[2019-01-21 12:00] VITALS: BP 152/83
--- NOTE | 2019-01-21 13:15 | Pulmonology Progress Note ---
Assessment/Plan Problems: (1) COPD (chronic obstructive pulmonary disease) (2) Cellulitis (3) Morbid obesity (4) Peripheral edema (5) Seizures (6) Cerebrovascular accident (7) Left-sided weakness (8) Right heart failure (9) Lumbar spondylosis (10) ADALBERTO (obstructive sleep apnea) Assessment/Plan still in pain, wants dialudid to 5 mg and add Methadone 15 Q8 cough much better all meds /notes reviewed respiratory treatment titrate fio2 to sat of 92% dvt prophylaxis Subjective ROS Limited/Unobtainable: No Constitutional: Reports: no symptoms HEENT: Repors: no symptoms Respiratory: Reports: no symptoms Allergies: Coded Allergies: ASPIRIN (Verified Allergy, Unknown, 07/14/18) KETOROLAC (Verified Allergy, Unknown, 07/14/18) PENICILLINS (Verified Allergy, Unknown, 12/23/18) tolerated Ancef on 08/2018 Objective Last 24 Hour Vital Signs Date Time Temp Pulse Resp B/P (MAP) Pulse Ox O2 Delivery O2 Flow Rate FiO2 01/21/19 12:00 97.4 93 18 152/83 (106) 97 01/21/19 09:00 Room Air Room Air 01/21/19 08:04 132/94 01/21/19 08:00 98.2 101 18 135/74 (94) 99 01/21/19 04:30 98.3 01/21/19 00:00 98.3 108 20 132/94 (107) 100 01/20/19 21:00 Room Air Room Air 01/20/19 20:00 98.7 95 20 135/90 (105) 100 01/20/19 16:00 98.7 94 19 154/77 (102) 100 Intake and Output 01/20/19 01/21/19 18:59 06:59 Intake Total 2500 ml Output Total 0 ml Balance 2500 ml 0 ml Intake Oral 2500 ml Stool Total 0 ml # Voids 4 3 # Bowel Movements 1 Objective HEENT: normocephalic, atraumatic Respiratory/Chest: chest wall non-tender, lungs clear Cardiovascular: normal peripheral pulses, normal rate Abdomen: normal bowel sounds, no organomegaly, massive fat on abdomen Extremities: no cyanosis Skin: no lesions Current Medications Medications (Trade) Dose Ordered Sig/Luis Route PRN Reason Start Time Stop Time Status Last Admin Dose Admin Chlorhexidine Gluconate (Ruby-Hex 2%) 1 applic DAILY@2000 TOPIC 01/16/19 20:00 02/15/19 19:59 01/20/19 19:44 Hydrocortisone (Hydrocortisone) 1 applic BIDPRN PRN TOPIC Itching 01/18/19 13:45 02/17/19 13:14 01/19/19 08:31 Hydromorphone HCl (Dilaudid) 4 mg Q4H PRN IM Severe Pain (Pain Scale 7-10) 01/16/19 11:45 01/23/19 11:29 01/21/19 08:05 Hydromorphone HCl (Dilaudid) 4 mg Q4H PRN IVP Severe Pain (Pain Scale 7-10) 01/21/19 11:30 01/27/19 15:29 01/21/19 12:06 Ketoconazole (Nizoral 2% Cream) 1 applic BID TOPIC 01/20/19 09:00 02/19/19 08:59 01/21/19 08:04 Lorazepam (Ativan) 1 mg Q6H PRN ORAL For Anxiety 01/21/19 06:00 01/28/19 05:59 Losartan Potassium (Cozaar) 25 mg DAILY ORAL 12/29/18 13:45 01/28/19 13:44 01/21/19 08:04 Magnesium Oxide (Mag-Ox 400mg) 800 mg THREE TIMES A DAY ORAL 01/02/19 18:00 02/01/19 17:59 01/21/19 12:01 Methadone HCl (Methadone HCl) 15 mg Q6H ORAL 01/21/19 15:00 01/28/19 14:59 Promethazine HCl/ Codeine (Phenergan with Codeine) 5 ml Q4H PRN ORAL For Cough 12/28/18 12:00 01/27/19 11:59 01/01/19 01:34 Bill iDxon MD Jan 21, 2019 13:15
--- NOTE | 2019-01-21 14:00 | Progress Note ---
DATE: 01/21/2019 SUBJECTIVE: This is a 53-year-old male patient, rule out CVA. He still has some mood lability, confusion, some disorganized thought process, high levels of anxiety. That is why, he does require daily consultation at this time, but he still is slightly irritable, has some confusion. MENTAL STATUS EXAMINATION: This is a 53-year-old male. Appearance is disheveled. Attitude, irritable and agitated. Affect, guarded and restricted. Intellect poor. Insight and judgment is fair. DIAGNOSIS: Major depressive disorder, mild, recurrent. PLAN: I am going to continue to follow this patient throughout hospital course try to prevent any further decline in his cognition and also I am going to add Ativan at a dose of 1 mg every 6 hours p.r.n. anxiety and agitation. As stated followed by Psychiatry. A 20 minutes of cognitive behavioral therapy provided to help him identify his automatic negative thoughts, help him convert his negative thoughts to more positive thoughts to reduce depression, anxiety, and mood lability. Seen and assessed at beside. Laney Mcghee M.D. DR: GUTIERREZ JOB#: [id number] CC:
--- NOTE | 2019-01-21 14:28 | General Progress Note ---
Assessment/Plan Problem List: (1) Abdominal pannus ICD Codes: E65 - Localized adiposity SNOMED: 6901101384515 (2) Peripheral edema ICD Codes: R60.9 - Edema, unspecified SNOMED: 435572885 (3) Abdominal wall cellulitis ICD Codes: L03.311 - Cellulitis of abdominal wall SNOMED: 22321955 (4) Leg pain ICD Codes: M79.606 - Pain in leg, unspecified SNOMED: 26291146 (5) COPD (chronic obstructive pulmonary disease) ICD Codes: J44.9 - Chronic obstructive pulmonary disease, unspecified SNOMED: 65354644 (6) Seizures ICD Codes: R56.9 - Unspecified convulsions SNOMED: 28190004 (7) Morbid obesity ICD Codes: E66.01 - Morbid (severe) obesity due to excess calories SNOMED: 869877842 (8) Cerebrovascular accident ICD Codes: I63.9 - Cerebral infarction, unspecified SNOMED: 236974877 (9) Left-sided weakness ICD Codes: R53.1 - Weakness SNOMED: 271271648 Status: stable, progressing, tolerating diet Assessment/Plan: pt diet neuro f/u wound care abx pain control cbc bmp am dc to snf if clear Subjective Constitutional: Reports: weakness Respiratory: Reports: shortness of breath Allergies: Coded Allergies: ASPIRIN (Verified Allergy, Unknown, 07/14/18) KETOROLAC (Verified Allergy, Unknown, 07/14/18) PENICILLINS (Verified Allergy, Unknown, 12/23/18) tolerated Ancef on 08/2018 All Systems: reviewed and negative except above Subjective o2nc sleepy calm Objective Last 24 Hour Vital Signs Date Time Temp Pulse Resp B/P (MAP) Pulse Ox O2 Delivery O2 Flow Rate FiO2 01/21/19 12:00 97.4 93 18 152/83 (106) 97 01/21/19 09:00 Room Air Room Air 01/21/19 08:04 132/94 01/21/19 08:00 98.2 101 18 135/74 (94) 99 01/21/19 04:30 98.3 01/21/19 00:00 98.3 108 20 132/94 (107) 100 01/20/19 21:00 Room Air Room Air 01/20/19 20:00 98.7 95 20 135/90 (105) 100 01/20/19 16:00 98.7 94 19 154/77 (102) 100 Intake and Output 01/20/19 01/21/19 19:00 07:00 Intake Total 2500 ml Output Total 0 ml Balance 2500 ml 0 ml Intake Oral 2500 ml Stool Total 0 ml # Voids 4 3 # Bowel Movements 1 Height (Feet): 5 Height (Inches): 10.00 Weight (Pounds): 495 General Appearance: lethargic EENT: normal ENT inspection Neck: normal alignment Cardiovascular: normal peripheral pulses, normal rate, regular rhythm Respiratory/Chest: chest wall non-tender, lungs clear, normal breath sounds Abdomen: soft, distended Extremities: normal inspection Edema: 1+ Arm (L), 1+ Arm (R), 1+ Leg (L), 1+ Leg (R), 1+ Pedal (L), 1+ Pedal ( R), 1+ Generalized Edema: trace edema Neurologic: responsive, motor weakness Skin: normal pigmentation, warm/dry Objective bl' villarreal dressing c&Ernesto Garcia DO Jan 21, 2019 14:28
--- NOTE | 2019-01-21 14:37 | NUR ---
PT note Attempted to see patient for treatment but patient requested to defer PT at this time due to c/o pain on his testicular area.
[2019-01-21 16:00] VITALS: BP 150/96
--- NOTE | 2019-01-21 16:27 | NUR ---
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 COPD VS: BP 152/83, P 101, T 97.4, RR 18, SpO2 97 NO LABS TODAY IS:DILAUDID 5mg IVP METHADONE 10mg COZAAR 25mg MED/SURG STATUS
--- NOTE | 2019-01-21 16:34 | NUR ---
DISCHARGE PLANNING SPOKE WITH DARRYL AT [facility] WHO SAID "HE WILL MOVE AROUND SOME PATIENTS TO ACCOMMODATE PATIENT". WAITING FOR DISCHARGE ORDER.
--- NOTE | 2019-01-21 16:59 | NUR ---
DISCHARGE PLANNED [facility] T [phone] FOR NURSE TO NURSE REPORT [facility] WILL MANAGER PURCHASING AT 1900
--- NOTE | 2019-01-21 17:53 | Neurology Progress Note ---
Interim History Interim History ROS Limited/Unobtainable: No Complaints: Seizures/ Weakness Events: This visit was performed on January 21, [address] Amador Brewster Objective Physical Exam Last Vital Signs Date Time Temp Pulse Resp B/P (MAP) Pulse Ox O2 Delivery O2 Flow Rate FiO2 01/21/19 16:00 98.7 96 18 150/96 (114) 96 01/21/19 09:00 Room Air Room Air 01/17/19 21:00 3.0 3.0 01/14/19 08:23 21 General: well developed, other - Morbidly obese Head: normocophalic Neck: no rigidity EENT: benign Neurologic Exam Mental Status: awake, alert, oriented x4, normal cognition, good mathematical skills, normal recent memory, normal remote memory, preserved visuospatial function Speech: normal speech, no dysarthia Language: normal language, no aphasia Cranial Nerve II: fundus normal, visual bonilla, no papilledema Cranial Nerves III, IV, : PERRLA, EOMI, pupils Cranial Nerve V: normal facial sensations, temporales function normal, masseters function normal, pterygoids function normal Cranial Nerve VII: normal facial expressions, other Cranial Nerve VIII: normal hearing, no nystagmus Cranial Nerve IX: normal palate elevation, gag response Cranial Nerve X: no voice hoarseness Cranial Nerve XI: SCM symmetric, trapezii function normal Cranial Nerve XII: tongue midline, no tongue atrophy/fasciculations Motor System: normal muscle tone, no involuntary movement, no muscle wasting Sensory: normal pinprick, normal light touch, normal position sense, normal graphesthesia Coordination: normal heel to villarreal bilaterally, negative Romberg test Deep Tendon Reflexes: 1+ bicep (L), 1+ bicep (R), 1+ tricep (L), 1+ tricep (R) , 1+ brachioradialis (L), 1+ brachioradialis (R), 1+ knee (L), 1+ knee (R), 1+ ankle (L), 1+ ankle (R) Reflexes: flexor plantar (L), flexor plantar (R); extensor plantar (L), extensor plantar (R) Stance: other - Broad based Gait: stable Objective Left arm, predominantly hand weakness at this time. Significantly improved dexterity and movement at this time . Alert and oriented Ambulatory with cellulitis persisting on BLE He does not have proximal left arm weakness at this time, no facial weakness and tongue is midline. Impression/Recommendations Problems: (1) Seizures Assessment & Plan: Keppra 2000mg BID PO Maintain SBP<140 Q4 Hour Neuro Checks Ativan 2mg PRN for seizure activity CT Head w/o contrast when able to rule out CVA - also for consideration of MRI if CT negative. - low suspicion of CVA due to normotensive status without risk factors of elevated BP/ HgBA1c or thyroid dysfunction. Na 135-145 Continue pain management - Lyrica 100mg TID - Continue Gabapentin 600mg TID Intense PT recommended EEG negative for seizures, but consistent with mild encephalopathy. Same on Repeat (2) Morbid obesity (3) COPD (chronic obstructive pulmonary disease) (4) Uncontrolled seizures (5) Left-sided weakness Assessment & Plan: No seizure activity captured on EEG but mild to moderate degree of encephalopathy seen. Repeat EEG same as previous (6) Knee osteomyelits, right Status: stable, progressing, tolerating diet Recommendations Q4 hour Neuro Obs - NO NIGHTTIME OBS if stable Prevent delirium Maintain regular sleep schedule and reduce nighttime activities such as observations (if unnecessary) Maintain Keppra dose at 2g BID, no additional meds at this time. Awaiting Bariatric Surgery planned for January 25, 2019- declined by [facility]. Will stay at [facility] [place] pending surgery. SBP<140 Check WBCs Add lidocaine/ antifungal creams for patient's skin while he awaits surgery No additional neuro recs at this time- stable neurologically. Vicky Taylor N.P. Jan 21, 2019 17:53
--- NOTE | 2019-01-21 19:33 | NUR ---
HAND-OFF: Report given to Sylvia HINOJOSA.
--- NOTE | 2019-01-21 19:40 | NUR ---
NURSE NOTES: patient received. patient in no acute distress at this time. patient complains of pain at this time. see emar. patient awake alert and oriented x4. patient waiting for [facility] to come, being discharged to [facility]. Patient IV intact patent and asymptomatic. patient wounds dry and intact and currently bandaged. patient bed in lowest position and locked. call light within reach. will continue to monitor.
[2019-01-21 20:00] VITALS: BP 136/96
[2019-01-21] MEDS: Dyna-Hex 2% Top Sol 2oz TOPIC SCH (20:00)
--- NOTE | 2019-01-21 22:50 | NUR ---
NURSE NOTES: patient was discharged to [facility]. [facility] came and took him in a gurney. Picc line was removed. patient wounds bandaged dry and intact. patient belongings list was signed.
--- NOTE | 2019-01-22 15:01 | Discharge Summary ---
Discharge Summary Discharge Summary _ DATE OF ADMISSION: 12/14/2018 DATE OF DISCHARGE: 01/21/2019 DISCHARGED BY: Dr. Ernesto Nicole CONSULTANTS: Dr. Bill Magaña [facility] HOSPITAL COURSE: Patient is a 53-year-old male, who resides at [facility] presented to ED due to left-sided pain and weakness for 2 days. Pain was described to be dull, 7 out of 10 and nonradiating. He denied any slurring of speech. He has medical history notable for COPD, seizure GERD, and hypertension. On evaluation at the ED, blood work did not show any leukocytosis. Hemoglobin and hematocrit were stable. Electrolytes were normal. Troponin was negative. EKG showed normal sinus rhythm with no acute ischemic changes. Chest x-ray did not show any acute process. Patient is outside window for stroke. Unable to perform CT scan due to patient's morbid obesity. He was then admitted for evaluation of left-sided weakness. Neurologist was consulted. Patient had a history of seizure. He was placed on seizure precautions and frequent neuro checks. He was started on IV Keppra 1000 mg twice daily and PRN Ativan. He was given Plavix and statin. He was given physical therapy. Psychiatric evaluation diagnosed patient with major depressive disorder. He was restarted on Cymbalta and Neurontin. He was given trazodone. He complained of of knee and back pain. He was given Dilaudid by line painting machine operator. ID was consulted. Patient complained of night sweats, however no fever. He complained of new onset headaches, but denied neck stiffness. He had neck discomfort given a movable lump on the back of the neck. He was observed off antibiotics as there was no active signs of infection. Plastic surgeon was consulted. Patient max weight was 800 pounds 3 years ago. He had panniculus that because skin breakdown in the groin as well as difficulty ambulation. Patient was recommended would benefit from panniculectomy. She could eventually need full medical and cardiac clearance and explained had to be off cigarettes for 6 weeks total prior in 4 weeks post surgery. He was noted to have venous stasis ulceration to the left foot. Podiatry was consulted. Patient had peripheral vascular disease with venous stasis ulceration and cellulitis. He was given wound care. Venous duplex was negative for acute DVT bilaterally. Cardiac evaluation was done. Echocardiogram done 18 revealed normal LV systolic and diastolic function. He was cleared for intermediate risk for surgery. He was also cleared by pulmonary. He was given Bactrim. Ancef was added for cellulitis. PICC line was inserted. He was noted to have low serum sodium. Associate Professor Of Philosophy was consulted. Creatinine increased. Antibiotics were discontinued. He was given daptomycin, and of treatment 01/07/2019. Magnesium was low. He was given magnesium supplements. EEG did not show any epileptiform discharges. Patient continued to complain of pain. He was started on methadone. Patient had chronic venous stasis with neuropathic pain and poorly healing wounds. He was poorly compliant with wound care. He complained of chest pain. Twelve-lead EKG showed no evidence of troponin was normal. He complained of left knee pain. Knee x-ray did not show any acute pathology. He was not accepted at [facility]. He was referred to several nursing homes. He completed antibiotic treatment. Active infectious cellulitis essentially resolved. He was eventually discharged back to [facility] and was recommended strict wound care for healing. FINAL DIAGNOSES: Bilateral leg cellulitis and panniculitis Sided weakness/spasticity, presumed to be secondary to seizures Old CVA with left-sided weakness Hypertension Bipolar disorder with psychotic features Tobacco abuse Anxiety disorder Chronic pain Seizure disorder COPD Morbid obesity Type 2 diabetes Hypertension Major depressive disorder Lumbar spondylosis Obstructive sleep apnea Hyponatremia, resolved Hypomagnesemia Venous stasis ulceration to the left foot, present on admission DISPOSITION: Patient was discharged to a SNF. DISCHARGE MEDICATIONS: Refer to Discharge Medication List. I have been assigned to complete a discharge summary on this account, I was not involved with the patient's management.--JOHN Sutherland Jacqueline Robles NP Jan 22, 2019 15:01
--- NOTE | 2019-01-25 18:15 | Progress Note ---
DATE: 01/25/2019 SUBJECTIVE: This is a 53-year-old male patient. This patient continues to have some confusion, some disorganized thought process, decline in cognition below his baseline. He has some confusion, disorganized thought process, and mood lability, worsened by stress of his medical illness. That is why, his attending has requested daily psychiatric consultation. This patient very irritable, confused, disorganized. MENTAL STATUS EXAMINATION: This is a 53-year-old male. Appearance is disheveled. Attitude, irritable and agitated. Affect, guarded and restricted. Intellect poor. Mood, depressed and anxious. Motor activity, psychomotor agitation. Attention span is poor. Orientation x2. Speech is pressured. Thought process, disorganized and illogical. Insight and judgment is poor. DIAGNOSIS: Major depressive disorder, mild, recurrent, without psychotic features. PLAN: Treat him with Cymbalta 30 mg a day, Neurontin mg three times a day, and. Provided him with 20 minutes of cognitive behavioral therapy provided to help him identify automatic negative thoughts, to help to convert his negative thoughts to more positive thoughts to reduce depression, anxiety, and mood lability. Also treat him with Neurontin 900 mg three times a day, Cymbalta 30 mg daily, and Ativan 1 mg every 6 hours p.r.n. anxiety and agitation. Chart reviewed. Discussed with staff. Seen and assessed at bedside. Laney Mcghee M.D. DR: GUTIERREZ JOB#: [id number] CC:
--- NOTE | 2019-01-26 18:45 | Progress Note ---
DATE: 01/26/2019 SUBJECTIVE: This is a 53-year-old male patient,, rule out cerebral infarct. This patient continues to be confused, disorganized, mood labile. No logical plan for his own self-care. He has got feelings of helplessness, hopelessness, loss of interest in activity that is why he does require inpatient treatment at this time. He still has lot of mood lability, confusion, disorganized thought process, decline in cognition below his baseline that is why his attending physician has requested daily psychiatric consultation at this time. This patient actually admitted to the hospital because of cellulitis especially in groin area. MENTAL STATUS EXAMINATION: A 53-year-old male. Appearance is disheveled. Attitude, irritable and agitated. Affect, guarded and restricted. Intellect poor. Mood depressed and anxious. Motor activity, psychomotor agitation. Attention span is poor. Orientation x2. Speech is low volume, slurred. Thought process, disorganized. Thought content, paranoia. Insight and judgment is poor. DIAGNOSIS: Major depressive disorder, moderate, recurrent, without psychotic features. PLAN: Treat him with Cymbalta 30 mg a day, Neurontin 900 mg three times a day, Ativan 1 every 6 hours p.r.n. anxiety and agitation. Provide him with 20 minutes of cognitive behavioral therapy to help him identify his automatic negative thoughts, help him convert negative thoughts to more positive thoughts to reduce depression, anxiety, and mood lability. Chart reviewed. Discussed with staff. Seen and assessed in his room. Laney Mcghee M.D. DR: Doretha JOB#: [id number] CC:
== END 2019-01-21 22:55 | DRG 101 ==
LOC: EDBD 16:34 → EDBEDREQ 16:50 → EMR 17:03 → 2W 17:25 → EDBEDREQ 19:59 → 4E 12-15 14:45
PROC: 02HV33Z Insertion of Infusion Device into Superior Vena Cava, Percutaneous Approach (ICD-10-PCS; principal; 2018-12-23)
PROC: B518ZZA Fluoroscopy of Superior Vena Cava, Guidance (ICD-10-PCS; principal; 2018-12-23)
PROC: 02HV33Z Insertion of Infusion Device into Superior Vena Cava, Percutaneous Approach (ICD-10-PCS; 2019-01-18)
PROC: B548ZZA Ultrasonography of Superior Vena Cava, Guidance (ICD-10-PCS; 2019-01-18)
DX: G40.909 Epilepsy, unspecified, not intractable, without status epilepticus (principal); E46 Unspecified protein-calorie malnutrition; Z68.43 Body mass index [BMI] 50.0-59.9, adult; L03.311 Cellulitis of abdominal wall; L03.116 Cellulitis of left lower limb; L03.115 Cellulitis of right lower limb; I69.954 Hemiplegia and hemiparesis following unspecified cerebrovascular disease affecting left non-dominant side; E87.1 Hypo-osmolality and hyponatremia; M86.9 Osteomyelitis, unspecified; F33.3 Major depressive disorder, recurrent, severe with psychotic symptoms; F31.62 Bipolar disorder, current episode mixed, moderate; G93.40 Encephalopathy, unspecified; I50.9 Heart failure, unspecified; E66.01 Morbid (severe) obesity due to excess calories; M51.16 Intervertebral disc disorders with radiculopathy, lumbar region; Z72.0 Tobacco use; F41.9 Anxiety disorder, unspecified; G89.29 Other chronic pain; J44.9 Chronic obstructive pulmonary disease, unspecified; G47.33 Obstructive sleep apnea (adult) (pediatric); E83.42 Hypomagnesemia; I83.025 Varicose veins of left lower extremity with ulcer other part of foot; E65 Localized adiposity; R51 Headache; I11.0 Hypertensive heart disease with heart failure; R07.89 Other chest pain; M79.3 Panniculitis, unspecified; E11.9 Type 2 diabetes mellitus without complications; G62.9 Polyneuropathy, unspecified
CPT/HCPCS: 36415; 36569; 71045; 76937; 80048; 80053; 80061; 80076; 80299; 81001; 82140; 82550; 82553; 82962; 83036; 83735; 83880; 83930; 83935; 84100; 84300; 84443; 84484; 84550; 85025; 85610; 85730; 86140; 87070; 87081; 87205; 93005; 93306; 93970; 94640; 94664; 95819; 96374; 99285; J2405; J7620; J8499

== ENCOUNTER 2019-01-22 07:14 | Inpatient (IN) | payer MEDICARE, MEDICAID ==
[~2019-01-22] VITALS: Ht 182.9 cm; Wt 189.6 kg
[~2019-01-22 07:14] MED LIST changes: +ACIDOPHILUS1 EAC6 PO; +AMLODIPINE BESYL5 MG ORAL; +FUROSEMIDE20 M1 ORAL; +GABAPENTIN300 MG ORAL; +LEVETIRACETAM1000 MG ORAL; +LOVENOX10 M4 SUBQ; +METHOCARBAMOL500 MG ORAL; +NITRO-BID1 GM TOPIC; +PANTOPRAZOLE SO40 MG ORAL
[2019-01-22] MEDS ORDERED: Vancomycin 275 ML IVPB SCH (07:45)
[2019-01-22] MEDS ORDERED: Vancomycin 1.5 GM in D5W 275 ML IVPB SCH (08:00)
--- NOTE | 2019-01-22 08:01 | NUR ---
ED Nurse Note: called lab for blood draw.
[2019-01-22] MEDS ORDERED: HYDROmorphone 1mg/ml Carpuject IVP ONE (08:15)
[2019-01-22] MEDS ORDERED: HYDROmorphone 1mg/ml Carpuject ONE (08:17)
[2019-01-22 08:42] VITALS: BP 136/81
--- NOTE | 2019-01-22 08:44 | NUR ---
ED Nurse Note: resumed care at 0815 placed pt on monitor . ERMD jose done PMD Dr. Ernesto Nicole at bedside . unable to obtain blood ERMD ok'd to send pt upstairs without blooddraw. lab may draw upstairs. pt has multiple skin breaks morbidly obese and has infection on scrotal area and penis swelling including inner thighs and lower abd.
--- NOTE | 2019-01-22 08:51 | NUR ---
ED Nurse Note:Called Daya Locke and requested medical records.
--- NOTE | 2019-01-22 09:02 | NUR ---
ED Nurse Note: MRSA swab done unable to get vre swab belongings list done.
--- NOTE | 2019-01-22 09:28 | NUR ---
ED Nurse Note: blood drawn by lab and sent to lab
--- NOTE | 2019-01-22 09:28 | Emergency Room Report ---
History of Present Illness General Chief Complaint: Skin Rash/Abscess Source: Patient Present Illness HPI Patient has history of morbid obesity. Diabetes hypertension COPD and CVA congestive heart failure seizures and edema. Patient was recently admitted because of a lower extremity leg wound and discharge. Since discharge yesterday he states that he is having worsening swelling in his groin. Patient complains of pain in this area. He denies any fever nausea vomiting diarrhea or chills. Symptoms noted to be severe. No other modifying factors. No other associated signs and symptoms. No other complaints were noted. 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 Reviewed Nursing Documentation: PMH: Agreed; PSxH: Agreed Nursing Documentation-PMH Hx Cardiac Problems: No - acute kidney failure, PNA, GERD, sleep apnea Hx Hypertension: Yes Hx COPD: Yes Hx Cancer: No Hx Gastrointestinal Problems: Yes Hx Neurological Problems: Yes Hx Seizures: Yes - EPILEPSY Review of Systems All Other Systems: negative except mentioned in HPI Physical Exam Vital Signs Date Time Temp Pulse Resp B/P (MAP) Pulse Ox O2 Delivery O2 Flow Rate FiO2 01/22/19 07:11 98.1 84 18 154/90 (111) 94 Room Air Sp02 EP Interpretation: reviewed, normal General Appearance: alert, moderate distress, obese Head: atraumatic Eyes: bilateral eye normal inspection ENT: normal ENT inspection, hearing grossly normal, normal voice Neck: normal inspection, full range of motion, supple, no bony tend Respiratory: normal inspection, lungs clear, normal breath sounds, no respiratory distress, no retraction, no wheezing Cardiovascular #1: regular rate, rhythm Gastrointestinal: normal inspection, normal bowel sounds, soft, no guarding, no hernia, other - Left lower abdominal area Genitourinary: other - Swollen groin edematous erythematous enlarged scrotum Musculoskeletal: normal inspection, back normal, normal range of motion Neurologic: normal inspection, alert, responsive, speech normal Psychiatric: depressed affect, anxious Skin: normal inspection, normal color, no rash Medical Decision Making Diagnostic Impression: Primary Impression: Cellulitis Additional Impressions: Abdominal wall cellulitis Cellulitis of groin, left ER Course Patient presents emergency department today complaining of pain and swelling in the left groin. Differential considerations include abscess, cellulitis, edema , hydrocele just to name a few. Given the severity of the patient's presentation I felt this is a highly complex patient. This patient required extensive workup. Patient is exam is consistent with acute infection involving the groin. This could be Sandy or cellulitic. There is also evidence of edema. Given his presentation felt the patient will require admission. Case was discussed with Dr. Ernesto Nicole who saw the patient emergency department. Patient will be admitted for further treatment. Labs Test 01/22/19 09:15 Last Vital Signs Date Time Temp Pulse Resp B/P (MAP) Pulse Ox O2 Delivery O2 Flow Rate FiO2 01/22/19 09:04 98.1 01/22/19 08:42 99 18 136/81 100 Room Air Disposition: ADMITTED INPATIENT Condition: Serious Referrals: Ernesto Nicole DO (PCP) David Pope MD Jan 22, 2019 09:28
[2019-01-22 09:36] LABS: BASOPHILS % (AUTO) 0.7 % (0.0-2.0); EOSINOPHILS % (AUTO) 1.2 % (0.0-3.0); HEMATOCRIT 32.9 % (42.0-52.0); HEMOGLOBIN 10.8 G/DL (14.2-18.0); LYMPHOCYTES % (AUTO) 14.9 % (20.0-45.0); MEAN CORPUSCULAR VOLUME 90 FL (80-99); MONOCYTES % (AUTO) 9.6 % (1.0-10.0); NEUTROPHILS % (AUTO) 73.6 % (45.0-75.0); PLATELET COUNT 237 K/UL (150-450); RED BLOOD COUNT 3.65 M/UL (4.70-6.10); RED CELL DISTRIBUTION WIDTH 13.2 % (11.6-14.8); WHITE BLOOD COUNT 7.6 K/UL (4.8-10.8)
[2019-01-22 09:47] LABS: ANION GAP 6 mmol/L (5-15); BLOOD UREA NITROGEN 13 mg/dL (7-18); CALCIUM 8.9 MG/DL (8.5-10.1); CARBON DIOXIDE 31 MMOL/L (21-32); CHLORIDE 104 MMOL/L (98-107); CREATININE 0.9 MG/DL (0.55-1.30); POTASSIUM 4.6 MMOL/L (3.5-5.1); SODIUM 141 MMOL/L (136-145)
[2019-01-22 09:51] LABS: ALANINE AMINOTRANSFERASE 18 U/L (12-78); ALBUMIN 2.7 G/DL (3.4-5.0); ALBUMIN/GLOBULIN RATIO 0.6 (1.0-2.7); ALKALINE PHOSPHATASE 111 U/L (46-116); ASPARTATE AMINO TRANSFERASE 24 U/L (15-37); BILIRUBIN,TOTAL 0.8 MG/DL (0.2-1.0)
--- NOTE | 2019-01-22 10:04 | NUR ---
ED Nurse Note: pt voided atempted to clean pt ,p states I will wait to go upstairs and sit up in chair to painful to move now i dont want to get cleaned rt now. ERcharge informed pt already in hospital bed.
[2019-01-22] MEDS ORDERED: Dextrose 50% 25ml Syringe IV PRN (11:00)
[2019-01-22] MEDS ORDERED: Miralax 17gm pkt ORAL PRN (11:00)
[2019-01-22] MEDS ORDERED: HYDROcodone/Acetamin 10/325 tab ORAL PRN ×3 (11:00→11:15)
[2019-01-22] MEDS ORDERED: Nitroglycerin Subl 0.4mg tab SL PRN (11:00)
[2019-01-22] MEDS ORDERED: Morphine Sulfate 2mg/ml Inj(IV/IM USE ONLY) IVP PRN ×3 (11:00→11:15)
[2019-01-22] MEDS ORDERED: Albuterol/Ipratropium 3ml neb HHN PRN (11:00)
--- NOTE | 2019-01-22 11:30 | NUR ---
NURSE NOTES: Pt refused Jose G LE Doppler done am. education provided, verbalize understanding.
--- NOTE | 2019-01-22 11:56 | Consultation ---
History of Present Illness General Date patient seen: Jan 22, 2019 Chief Complaint: Skin Rash/Abscess Present Illness HPI 53 y/o M with hx of CVA, HTN, bipolar disorder w/ psychotic features, tobacco abuse, anxiety disorder, chronic pain, CHF, seizure disorder, COPD, morbid obesity, Dm2, HTN, SNF resident recently admitted here from 12/14-01/21 with seizure episode and b/l cellulitis in the setting of chronic edema/venous stasis and morbid obesity. Patient received abx treatment for cellulitis and completed it. Now comes back on 01/22 with worsening scrotal swelling and pain Denid f/c, n/v/d Allergies: Coded Allergies: ASPIRIN (Verified Allergy, Unknown, 07/14/18) KETOROLAC (Verified Allergy, Unknown, 07/14/18) PENICILLINS (Verified Allergy, Unknown, 12/23/18) tolerated Ancef on 08/2018 Medication History Scheduled Amlodipine Besylate* (Amlodipine Besylate*), 5 MG ORAL DAILY, (Reported) Atorvastatin Calcium* (Lipitor*), 80 MG ORAL BEDTIME, (Reported) Clopidogrel* (Clopidogrel*), 75 MG ORAL DAILY, (Reported) Docusate Sodium* (Docusate Sodium*), 100 MG ORAL DAILY, (Reported) Duloxetine Hcl* (Cymbalta*), 30 MG ORAL DAILY, (Reported) Enoxaparin* (Lovenox*), 40 MG SUBQ DAILY, (Reported) Furosemide* (Lasix*), 10 MG ORAL Q8HR, (Reported) Gabapentin* (Gabapentin*), 900 MG ORAL THREE TIMES A DAY, (Reported) Lactobacillus Acidophilus (Acidophilus), 1 EACH PO BID, (Reported) Levetiracetam (Levetiracetam), 1,000 MG ORAL TID, (Reported) Nitroglycerin (Nitro-Bid*), 1 INCH TOPIC Q8HR, (Reported) Pantoprazole* (Pantoprazole*), 40 MG ORAL BID, (Reported) Sennosides (Senna), 2 TAB PO HS, (Reported) Scheduled PRN Acetaminophen* (Acetaminophen 325MG Tablet*), 650 MG ORAL Q4H PRN for Mild Pain/ Temp > 100.5, (Reported) Bisacodyl (Dulcolax), 10 MG RC DAILY PRN for IF MOM INEFFECTIVE, (Reported) Hydrocodone Bit/Acetaminophen 10-325* ([place] 10-325*), 1 TAB ORAL Q6HR PRN for For Pain, (Reported) Ipratropium/Albuterol Sulfate (DuoNeb 0.5-3(2.5)mg/3ml), 1 UNIT [id number] Q3HR PRN for Shortness of Breath, (Reported) Magnesium Hydroxide* (Milk Of Magnesia*), 30 ML ORAL BEDTIME PRN for IF DOCUSATE INEFFECTIVE, (Reported) Methocarbamol* (Methocarbamol*), 500 MG ORAL Q8HR PRN for For Pain, (Reported) Na Phos,M-B/Na Phos,Di-Ba* (Fleet Enema*), 133 ML RECTAL QOD PRN for IF DULCOLAX INEFFECTIVE, (Reported) Nitroglycerin (Nitrostat), 0.4 MG SL Q5M X3 DOSES PRN for CHEST PAIN, (Reported) Ondansetron* (Zofran*), 4 MG ORAL Q4HR PRN for Nausea & Vomiting, (Reported) Patient History Healthcare decision maker Resuscitation status Advanced Directive on File Patient History Narrative PMhx: as above Shx: Denies: smoking, alcohol use, drug use Fhx: non contributory Physical Exam Physical Exam Narrative General Appearance: alert, moderate distress, obese Head: atraumatic Eyes: bilateral eye normal inspection ENT: normal ENT inspection, hearing grossly normal, normal voice Neck: normal inspection, full range of motion, supple, no bony tend Respiratory: normal inspection, lungs clear, normal breath sounds, no respiratory distress, no retraction, no wheezing Cardiovascular #1: regular rate, rhythm Gastrointestinal: normal inspection, normal bowel sounds, soft, no guarding, no hernia, other - Left lower abdominal area Genitourinary: other - Swollen groin edematous erythematous enlarged scrotum Musculoskeletal: normal inspection, back normal, normal range of motion Neurologic: normal inspection, alert, responsive, speech normal Psychiatric: depressed affect, anxious Skin: normal inspection, normal color, no rash Last 24 Hour Vital Signs Date Time Temp Pulse Resp B/P (MAP) Pulse Ox O2 Delivery O2 Flow Rate FiO2 01/22/19 10:44 Room Air 01/22/19 10:16 98.1 99 18 136/81 100 Room Air 01/22/19 09:04 98.1 6/28/19 09:03 98.1 01/22/19 08:42 98.1 99 18 136/81 100 Room Air 01/22/19 07:11 98.1 84 18 154/90 (111) 94 Room Air Laboratory Tests Test 01/22/19 09:15 White Blood Count 7.6 K/UL (4.8-10.8) Red Blood Count 3.65 M/UL (4.70-6.10) L Hemoglobin 10.8 G/DL (14.2-18.0) L Hematocrit 32.9 % (42.0-52.0) L Mean Corpuscular Volume 90 FL (80-99) Mean Corpuscular Hemoglobin 29.5 PG (27.0-31.0) Mean Corpuscular Hemoglobin Concent 32.8 G/DL (32.0-36.0) Red Cell Distribution Width 13.2 % (11.6-14.8) Platelet Count 237 K/UL (150-450) Mean Platelet Volume 4.6 FL (6.5-10.1) L Neutrophils (%) (Auto) 73.6 % (45.0-75.0) Lymphocytes (%) (Auto) 14.9 % (20.0-45.0) L Monocytes (%) (Auto) 9.6 % (1.0-10.0) Eosinophils (%) (Auto) 1.2 % (0.0-3.0) Basophils (%) (Auto) 0.7 % (0.0-2.0) Sodium Level 141 MMOL/L (136-145) Potassium Level 4.6 MMOL/L (3.5-5.1) Chloride Level 104 MMOL/L (98-107) Carbon Dioxide Level 31 MMOL/L (21-32) Anion Gap 6 mmol/L (5-15) Blood Urea Nitrogen 13 mg/dL (7-18) Creatinine 0.9 MG/DL (0.55-1.30) Estimat Glomerular Filtration Rate > 60 mL/min (>60) Glucose Level 100 MG/DL (74-106) Calcium Level 8.9 MG/DL (8.5-10.1) Total Bilirubin 0.8 MG/DL (0.2-1.0) Aspartate Amino Transf (AST/SGOT) 24 U/L (15-37) Alanine Aminotransferase (ALT/SGPT) 18 U/L (12-78) Alkaline Phosphatase 111 U/L (46-116) Total Protein 6.9 G/DL (6.4-8.2) Albumin 2.7 G/DL (3.4-5.0) L Globulin 4.2 g/dL Albumin/Globulin Ratio 0.6 (1.0-2.7) L Height (Feet): 6 Weight (Pounds): 500 Medications Current Medications Medications (Trade) Dose Ordered Sig/Luis Route PRN Reason Start Time Stop Time Status Last Admin Dose Admin Acetaminophen (Tylenol) 650 mg Q4H PRN ORAL fever 01/22/19 11:00 02/21/19 10:59 Acetaminophen/ Hydrocodone Bitart ([place] 10) 1 tab Q6H PRN ORAL mild pain 01/22/19 11:15 01/29/19 10:59 Albuterol/ Ipratropium (Albuterol/ Ipratropium) 3 ml Q4H PRN HHN Shortness of Breath 01/22/19 11:00 01/27/19 10:59 Amlodipine Besylate (Norvasc) 5 mg DAILY ORAL 01/23/19 09:00 02/22/19 08:59 Clopidogrel Bisulfate (Plavix) 75 mg DAILY ORAL 01/23/19 09:00 02/22/19 08:59 Dextrose (Dextrose 50%) 25 ml Q30M PRN IV Hypoglycemia 01/22/19 11:00 02/21/19 10:59 Dextrose (Dextrose 50%) 50 ml Q30M PRN IV hypoglycemia 01/22/19 11:00 02/21/19 10:59 Duloxetine HCl (Cymbalta) 30 mg DAILY ORAL 01/23/19 09:00 02/22/19 08:59 Fluconazole/ Sodium Chloride 200 ml @ 100 mls/hr Q24H IVPB 01/22/19 07:45 01/29/19 07:44 01/22/19 08:08 Furosemide (Lasix) 10 mg Q8HR ORAL 01/22/19 14:00 02/21/19 13:59 Gabapentin (Neurontin) 900 mg THREE TIMES A DAY ORAL 01/22/19 13:00 02/21/19 12:59 Heparin Sodium (Porcine) (Heparin 5000 units/ml) 5,000 units EVERY 12 HOURS SUBQ 01/22/19 21:00 02/21/19 20:59 Hydromorphone HCl (Dilaudid) 5 mg Q3H PRN IV pain 7-10 01/22/19 11:00 01/29/19 10:59 Levetiracetam (Keppra) 1,000 mg Q8HR ORAL 01/22/19 14:00 02/21/19 13:59 Methadone HCl (Methadone HCl) 20 mg EVERY 8 HOURS ORAL 01/22/19 11:00 01/29/19 10:59 Morphine Sulfate (Morphine Sulfate) 2 mg Q4H PRN IVP moderate pain 01/22/19 11:15 01/29/19 10:59 Nitroglycerin (Ntg) 0.4 mg Q5M PRN SL Prn Chest Pain 01/22/19 11:00 02/21/19 10:59 Ondansetron HCl (Zofran) 4 mg Q6H PRN IVP Nausea & Vomiting 01/22/19 11:00 02/21/19 10:59 Polyethylene Glycol (Miralax) 17 gm DAILYPRN PRN ORAL Constipation 01/22/19 11:00 02/21/19 10:59 Temazepam (Restoril) 15 mg HSPRN PRN ORAL Insomnia 01/22/19 11:00 01/29/19 10:59 Assessment/Plan Assessment/Plan: Abx: IV Vancomycin x1 01/22 Fluconazole 01/22- Assessment: R groin swelling and pain Sandy intertrigo B/l Leg cellulitis and panniculitis - in the setting of chronic venous stasis, s /p Rx Active infectious cellulitis essentially resolved. Now he has chronic venous stasis and neuropathic pain with poorly healing wounds. Alot off this is due to the severe swelling in his feet but also he is poorly compliant with wound care instructions. Afebrile No leukocytosis Recent seizure episode -had L side weakness and spasticity CVA HTN bipolar disorder w/ psychotic features tobacco abuse anxiety disorder chronic pain CHF seizure disorder COPD morbid obesity Dm2 HTN SNF resident Plan: - Continue PO Fluconazole #1/3 -Start Miconazole topical - Needs wound care for healing. - 01/07/19 SP IV Dapto d# 14 - 01/06/19 S/P Levofloxacin #7 - 12/25 sp Bactrim #4/14 and add IV Ancef #3/14 for cellulitis - Monitor CBC/CMP, temperatures - aspiration precautions - wound care per hospital protocol -Uro Alexa Sawyer M.D. Jan 22, 2019 11:56
--- NOTE | 2019-01-22 12:40 | Pulmonology Progress Note ---
Assessment/Plan Problems: (1) Abdominal pannus (2) COPD (chronic obstructive pulmonary disease) (3) ADALBERTO (obstructive sleep apnea) (4) Right heart failure (5) Lumbar spondylosis (6) Morbid obesity Assessment/Plan symptomatic treatment local abx as cream continue lasix Dilaudid and Methadone for pain dvt prophylaxis. Subjective ROS Limited/Unobtainable: No Constitutional: Reports: no symptoms HEENT: Repors: no symptoms Respiratory: Reports: no symptoms Allergies: Coded Allergies: ASPIRIN (Verified Allergy, Unknown, 07/14/18) KETOROLAC (Verified Allergy, Unknown, 07/14/18) PENICILLINS (Verified Allergy, Unknown, 12/23/18) tolerated Ancef on 08/2018 Objective Last 24 Hour Vital Signs Date Time Temp Pulse Resp B/P (MAP) Pulse Ox O2 Delivery O2 Flow Rate FiO2 01/22/19 10:44 Room Air 01/22/19 10:16 98.1 99 18 136/81 100 Room Air 01/22/19 09:04 98.1 01/22/19 09:03 98.1 01/22/19 08:42 98.1 99 18 136/81 100 Room Air 01/22/19 07:11 98.1 84 18 154/90 (111) 94 Room Air General Appearance: WD/WN HEENT: normocephalic Respiratory/Chest: chest wall non-tender, normal breath sounds Cardiovascular: normal peripheral pulses Abdomen: soft, non tender Genitourinary: normal external genitalia Extremities: no cyanosis, no clubbing Neurologic/Psychiatric: acquisition cost estimator II-XII grossly normal Lymphatic: no neck adenopathy Laboratory Tests 01/22/19 09:15: White Blood Count 7.6, Red Blood Count 3.65L, Hemoglobin 10.8L, Hematocrit 32.9L , Mean Corpuscular Volume 90, Mean Corpuscular Hemoglobin 29.5, Mean Corpuscular Hemoglobin Concent 32.8, Red Cell Distribution Width 13.2, Platelet Count 237, Mean Platelet Volume 4.6L, Neutrophils (%) (Auto) 73.6, Lymphocytes ( %) (Auto) 14.9L, Monocytes (%) (Auto) 9.6, Eosinophils (%) (Auto) 1.2, Basophils (%) (Auto) 0.7, Sodium Level 141, Potassium Level 4.6, Chloride Level 104, Carbon Dioxide Level 31, Anion Gap 6, Blood Urea Nitrogen 13, Creatinine 0.9, Estimat Glomerular Filtration Rate > 60, Glucose Level 100, Calcium Level 8.9, Total Bilirubin 0.8, Aspartate Amino Transf (AST/SGOT) 24, Alanine Aminotransferase (ALT/SGPT) 18, Alkaline Phosphatase 111, Total Protein 6.9, Albumin 2.7L, Globulin 4.2, Albumin/Globulin Ratio 0.6L Current Medications Medications (Trade) Dose Ordered Sig/Luis Route PRN Reason Start Time Stop Time Status Last Admin Dose Admin Acetaminophen (Tylenol) 650 mg Q4H PRN ORAL fever 01/22/19 11:00 02/21/19 10:59 Acetaminophen/ Hydrocodone Bitart ([place] [address]) 1 tab Q6H PRN ORAL mild pain 01/22/19 11:15 01/29/19 10:59 Albuterol/ Ipratropium (Albuterol/ Ipratropium) 3 ml Q4H PRN HHN Shortness of Breath 01/22/19 11:00 01/27/19 10:59 Amlodipine Besylate (Norvasc) 5 mg DAILY ORAL 01/23/19 09:00 02/22/19 08:59 Clopidogrel Bisulfate (Plavix) 75 mg DAILY ORAL 01/23/19 09:00 02/22/19 08:59 Dextrose (Dextrose 50%) 25 ml Q30M PRN IV Hypoglycemia 01/22/19 11:00 02/21/19 10:59 Dextrose (Dextrose 50%) 50 ml Q30M PRN IV hypoglycemia 01/22/19 11:00 02/21/19 10:59 Duloxetine HCl (Cymbalta) 30 mg DAILY ORAL 01/23/19 09:00 02/22/19 08:59 Fluconazole/ Sodium Chloride 200 ml @ 100 mls/hr Q24H IVPB 01/22/19 07:45 01/29/19 07:44 01/22/19 08:08 Furosemide (Lasix) 10 mg Q8HR ORAL 01/22/19 14:00 02/21/19 13:59 Gabapentin (Neurontin) 900 mg THREE TIMES A DAY ORAL 01/22/19 13:00 02/21/19 12:59 01/22/19 12:34 Heparin Sodium (Porcine) (Heparin 5000 units/ml) 5,000 units EVERY 12 HOURS SUBQ 01/22/19 21:00 02/21/19 20:59 Hydromorphone HCl (Dilaudid) 5 mg Q3H PRN IV pain 7-10 01/22/19 11:00 01/29/19 10:59 01/22/19 12:30 Levetiracetam (Keppra) 1,000 mg Q8HR ORAL 01/22/19 14:00 02/21/19 13:59 Methadone HCl (Methadone HCl) 20 mg EVERY 8 HOURS ORAL 01/22/19 11:00 01/29/19 10:59 Morphine Sulfate (Morphine Sulfate) 2 mg Q4H PRN IVP moderate pain 01/22/19 11:15 01/29/19 10:59 Nitroglycerin (Ntg) 0.4 mg Q5M PRN SL Prn Chest Pain 01/22/19 11:00 02/21/19 10:59 Ondansetron HCl (Zofran) 4 mg Q6H PRN IVP Nausea & Vomiting 01/22/19 11:00 02/21/19 10:59 Polyethylene Glycol (Miralax) 17 gm DAILYPRN PRN ORAL Constipation 01/22/19 11:00 02/21/19 10:59 Temazepam (Restoril) 15 mg HSPRN PRN ORAL Insomnia 01/22/19 11:00 01/29/19 10:59 Bill Dixon MD Jan 22, 2019 12:40
[2019-01-22] MEDS: Miconazole 2% Cream 30gm TOPIC SCH ×2 (14:00→17:34)
--- NOTE | 2019-01-22 14:04 | Cardiac Electrophysiology PN ---
Subjective Subjective [id number] Objective Last 24 Hour Vital Signs Date Time Temp Pulse Resp B/P (MAP) Pulse Ox O2 Delivery O2 Flow Rate FiO2 01/22/19 13:00 98.1 01/22/19 10:44 Room Air 01/22/19 10:16 98.1 99 18 136/81 100 Room Air 01/22/19 09:04 98.1 01/22/19 09:03 98.1 01/22/19 08:42 98.1 99 18 136/81 100 Room Air 01/22/19 07:11 98.1 84 18 154/90 (111) 94 Room Air Laboratory Tests Test 01/22/19 09:15 White Blood Count 7.6 K/UL (4.8-10.8) Red Blood Count 3.65 M/UL (4.70-6.10) L Hemoglobin 10.8 G/DL (14.2-18.0) L Hematocrit 32.9 % (42.0-52.0) L Mean Corpuscular Volume 90 FL (80-99) Mean Corpuscular Hemoglobin 29.5 PG (27.0-31.0) Mean Corpuscular Hemoglobin Concent 32.8 G/DL (32.0-36.0) Red Cell Distribution Width 13.2 % (11.6-14.8) Platelet Count 237 K/UL (150-450) Mean Platelet Volume 4.6 FL (6.5-10.1) L Neutrophils (%) (Auto) 73.6 % (45.0-75.0) Lymphocytes (%) (Auto) 14.9 % (20.0-45.0) L Monocytes (%) (Auto) 9.6 % (1.0-10.0) Eosinophils (%) (Auto) 1.2 % (0.0-3.0) Basophils (%) (Auto) 0.7 % (0.0-2.0) Sodium Level 141 MMOL/L (136-145) Potassium Level 4.6 MMOL/L (3.5-5.1) Chloride Level 104 MMOL/L (98-107) Carbon Dioxide Level 31 MMOL/L (21-32) Anion Gap 6 mmol/L (5-15) Blood Urea Nitrogen 13 mg/dL (7-18) Creatinine 0.9 MG/DL (0.55-1.30) Estimat Glomerular Filtration Rate > 60 mL/min (>60) Glucose Level 100 MG/DL (74-106) Calcium Level 8.9 MG/DL (8.5-10.1) Total Bilirubin 0.8 MG/DL (0.2-1.0) Aspartate Amino Transf (AST/SGOT) 24 U/L (15-37) Alanine Aminotransferase (ALT/SGPT) 18 U/L (12-78) Alkaline Phosphatase 111 U/L (46-116) Total Protein 6.9 G/DL (6.4-8.2) Albumin 2.7 G/DL (3.4-5.0) L Globulin 4.2 g/dL Albumin/Globulin Ratio 0.6 (1.0-2.7) L Carlos Yee MD Jan 22, 2019 14:04
--- NOTE | 2019-01-22 15:02 | NUR ---
NURSE NOTES: Received report from Michelle HINOJOSA. Pt awake, A/o x 4, complained of pain in Jose G LE. Cellulites Jose G LE, abd, redness inner thigh, swollen scrotum. VS stable. tolerating diet. call light within reach. will continue to monitor.
[2019-01-22 16:23] VITALS: BP 127/70
--- NOTE | 2019-01-22 18:42 | NUR ---
NURSE NOTES: ICe packs Per pt request and /elevated scrotum per order
--- NOTE | 2019-01-22 19:15 | History and Physical Report ---
DATE OF ADMISSION: 01/22/2019 TIME SEEN: 8:00 a.m. CONSULTANTS: 1. Harry Frank M.D. 2. Bill Dixon M.D. 3. Cece Magaña M.D. 4. Reggie Roberts M.D. 5. Rosangela 6. Carlos Yee M.D. 7. Laney Mcghee M.D. CHIEF COMPLAINT: Shortness of breath, scrotal swelling. BRIEF HISTORY: This is a 53-year-old male, hospitalized here for about two weeks, yesterday he was discharged to residential. Apparently, he is complaining of increased shortness of breath and swelling of the scrotum. He called 911 himself this morning, came to [place], diagnosed as above, and being admitted for scrotal swelling, shortness of breath, COPD exacerbation, and cellulitis of perineum. Currently, the patient has O2 NC, slightly anxious in bed, complaining of moderate general pain. No complaint. REVIEW OF SYSTEMS: No chest pain. Slight short of breath. No nausea, vomiting, or diarrhea. PAST MEDICAL HISTORY: Morbid obese, CVA, CHF, hypertension, COPD, seizure, and abdominal pannus. PAST SURGICAL HISTORY: Right knee. MEDICATIONS: Include he is given hydromorphone, vancomycin, fluconazole, so far. We will obtain list shortly. ALLERGIES: Penicillin, aspirin, and Toradol. SOCIAL HISTORY: Positive smoking. No alcohol. No intravenous drug abuse. FAMILY HISTORY: Noncontributory. PHYSICAL EXAMINATION: GENERAL: Slightly anxious in bed, oriented x3, slight distress secondary to pain. VITAL SIGNS: Temperature is 98 degrees, pulse 84, respirations 18, blood pressure 154/90. CARDIOVASCULAR: No murmurs. LUNGS: Poor air exchange. ABDOMEN: Bowel sounds distant. EXTREMITIES: No cyanosis, clubbing, 1+ edema. GENITOURINARY: Scrotal area markedly swollen as well as pannus, slight cellulitis in the perineum area. NEUROLOGIC: The patient moves all extremities, slightly weak. LABORATORY AND DIAGNOSTIC DATA: Laboratories are pending. ASSESSMENT: 1. Scrotal swelling. 2. Cellulitis of perineum. 3. Shortness of breath. 4. COPD. 5. Edema. 6. Morbid obese. 7. CVA. 8. CHF. 9. Hypertension. 10. Seizure. 11. Abdominal pannus. PLAN: 1. O2 and pulmonary treatment. 2. PT, OT, and dietary evaluation. 3. Resume home medications. 4. Pain control. 5. CBC and BMP in the morning. 6. We will call consultants. Ernesto Nicole D.O. DR: KEITH JOB#: [id number] CC:
--- NOTE | 2019-01-22 19:26 | NUR ---
HAND-OFF: Report given to Ravindra HINOJOSA.
--- NOTE | 2019-01-22 19:31 | NUR ---
NURSE NOTES: Received report from MICAELA Gastelum. Patient A&Ox4. On room air. IV intact, patent, and saline locked. Bed in lowest position with call light in reach. Will continue to monitor.
[2019-01-22 20:00] VITALS: BP 132/63
[2019-01-22] MEDS: Heparin 5000 units/ml inj SUBQ SCH (20:52)
--- NOTE | 2019-01-22 22:00 | Consultation ---
DATE OF CONSULTATION: 01/22/2019 CARDIOLOGY CONSULTATION REASON FOR CONSULTATION: Management of hypertension and preop clearance for surgery. HISTORY OF PRESENT ILLNESS: The patient is a 53-year-old morbidly obese gentleman who used to be more than 800 pounds. He says he lost 400 pounds and clearly more than 400 pounds. The patient has history of hypertension, CVA, bipolar disorder with psychiatric features, as well as anxiety disorder, seizure disorder, chronic obstructive pulmonary disease, diabetes, and hypertension. The patient was recently admitted from 12/14/2018 through 01/21/2019 for cellulitis and chronic edema and stasis and morbid obesity and was discharged. The patient came back within 24 hours with worsening scrotal swelling and pain and edema. The patient is also being considered for abdominal wall surgery per patient. REVIEW OF SYSTEMS: Review of systems was negative other than what is mentioned in the history of present illness. PAST MEDICAL HISTORY: As mentioned above. FAMILY HISTORY: Noncontributory. SOCIAL HISTORY: He lives in a shelter. Does not smoke or drink alcohol. PHYSICAL EXAMINATION: VITAL SIGNS: Blood pressure 136/81, pulse is 90, respirations is 18, and he is afebrile. HEAD AND NECK: Shows no JVD. LUNGS: Clear. CARDIOVASCULAR: Shows regular S1 and S2 with no gallop or murmur. ABDOMEN: Very swollen, erythematous, and enlarged scrotum. EXTREMITIES: A 2+ pitting edema and cellulitis of the legs. LABORATORY AND DIAGNOSTIC DATA: His labs show white count of 7.2, hemoglobin 10.8, hematocrit of 33, and platelet count is 237,000. Sodium 141, potassium 4.6, BUN of 13, creatinine 0.9, and glucose of 100. ASSESSMENT AND PLAN: 1. Hypertension. Continue amlodipine 5 mg daily. Change Lasix to 40 mg IV daily from 10 mg q.8. 2. Severe bilateral lower extremity edema and cellulitis. On IV antibiotic per Dr. Patterson. 3. Abdominal pannus. 4. Chronic obstructive pulmonary disease. 5. Obstructive sleep apnea. 6. Right heart failure. 7. Lumbar spondylosis. 8. Morbid obesity. Thank you very much for allowing me to participate in the care of this patient. Please do not hesitate to contact me for any questions regarding my evaluation. Carlos Yee M.D. DR: JUNE JOB#: [id number] CC:
--- NOTE | 2019-01-22 22:00 | NUR ---
NURSE NOTES: Patient has history of seizures and refuses to have side rails padded. RN explained the risks and benefits and patient continued to decline.
--- NOTE | 2019-01-22 22:45 | Progress Note ---
DATE: 01/22/2019 PSYCHOTHERAPY CONSULTATION TREATING ATTENDING PHYSICIAN: Ernesto Nicole D.O. HISTORY OF PRESENT ILLNESS: The patient is a male patient, 53 years old, diagnosed with bipolar disorder. This patient was extremely irritable and anxious today. He states that his scrotum is swollen, and he is in pain. He is extremely anxious. He states that he is possibly having his surgery on Friday that he was excited about; however, due to his current pain, he was also distressed. Alert and oriented to person, place, and time. Mood is anxious. Affect is congruent. Thought process is negative and catastrophic. He has poor attention and concentration. Fair insight, judgment, and impulse control. Denies suicidal or homicidal thoughts of ideation. I ASSESSED THIS PATIENT. PROVIDED THE PATIENT WITH: 1. Supportive psychotherapy, which is focused on identifying positive emotions of stress depressed and helpless. 2. Provided the patient with cognitive behavioral therapy, which is focused on identifying positive coping skills, breathing exercises, relaxation exercises, and processing thought process. The patient is feeling depressed and helpless due to his current medical condition. 3. Maintain medication compliance, assist with positive coping skills, stabilizing the thoughts and behavior. Psychotherapy provided to this patient, 20 minutes. This clinician has reviewed the patient's chart and discussed the treatment with treatment team. Liu Jackman PsyD. DR: AUGUSTO JOB#: [id number] CC:
[2019-01-23] VITALS: BP 134/75
--- NOTE | 2019-01-23 01:45 | Consultation ---
DATE OF CONSULTATION: 01/22/2019 UROLOGY CONSULTATION ATTENDING/CONSULTING PHYSICIAN: Ernesto Nicole D.O. CHIEF COMPLAINT/HISTORY OF PRESENT ILLNESS: I was asked by Dr. Nicole to evaluate this 53-year-old gentleman regarding history of severe scrotal edema and cellulitis in the setting of congestive heart failure exacerbation and fluid overload. Briefly, the patient has a history of multiple medical issues including morbid obesity, congestive heart failure diabetes, bipolar disorder, chronic obstructive pulmonary disease, and previous stroke. He was hospitalized here from 12/14/2018 until yesterday with a seizure episode and bilateral lower extremity cellulitis in the setting of chronic venous stasis. The patient was eventually discharged after receiving antibiotics, but returns today with worsening scrotal swelling and pain. Given the above, I was asked to evaluate the patient. PAST MEDICAL HISTORY: 1. Stroke. 2. Hypertension. 3. CHF. 4. Bipolar disorder. 5. General anxiety disorder. 6. Seizure disorder. 7. Chronic obstructive pulmonary disease. 8. Diabetes type 2. 9. Morbid obesity. 10. Lower extremity chronic venous stasis. 11. Cellulitis. MEDICATIONS: Please see the chart for current medications and administration details. ALLERGIES: Include aspirin, Toradol, and penicillins. SOCIAL HISTORY: Unremarkable for current tobacco, alcohol, or drug use. The patient apparently used to smoke. FAMILY HISTORY: Noncontributory. REVIEW OF SYSTEMS: A 14-system review of systems is essentially unremarkable outside what was described above. PHYSICAL EXAMINATION: The patient is a middle-aged gentleman, awake, alert, and oriented x4, pleasant, in no obvious distress. HEENT: NC/AT. Extraocular muscles intact. NECK: Supple. Oropharynx clear. CHEST: Within normal limits. ABDOMEN: Soft and massively obese. There is no apparent tenderness on physical palpation. The fat above the suprapubic area appears somewhat inflamed. EXTREMITIES: Warm and well perfused. No cyanosis or clubbing. There is massive lower extremity edema and cellulitis and signs of chronic venous stasis. NEUROLOGIC: Grossly nonfocal. A full exam is deferred at this time. GENITOURINARY: Reveals an uncircumcised male phallus. There is massive penoscrotal edema with some weeping. There is some erythematous cellulitis on the left side of the patient's groin consistent with a possible fungal infection. The testes are unappreciable due to the massive scrotal swelling. There is no evidence of Mohinder's gangrene or other process. LABORATORY DATA: White blood cell count 7.6, hematocrit 32.9, and platelets 237,000. Sodium 141, potassium 4.6, chloride 104, bicarbonate 31, BUN 13, creatinine 0.9, and glucose 100. Calcium 8.9. LFTs within normal limits. Alkaline phosphatase 111. DIAGNOSTIC IMAGING: Abdominal ultrasound from August 2018 reveals slight fullness in the area of the mid pole of the right kidney. There is hepatomegaly and borderline splenomegaly. ASSESSMENT AND PLAN: In summary, this is a gentleman with a history of multiple medical issues presenting back to the hospital with ongoing fluid overload, congestive heart failure exacerbation, lower extremity chronic venous stasis, and cellulitis. Physical exam reveals a massive gentleman with penoscrotal edema and cellulitis of the left groin and scrotum consistent with a possible fungal infection. There is also fluid overload with massive swelling of the lower extremities consistent with anasarca. Laboratory data is essentially unremarkable. There is no relevant diagnostic imaging from this admission so far, but a previous renal ultrasound did not reveal any significant findings. I discussed these findings today with the patient at the bedside. His penoscrotal edema is a manifestation of fluid overload and congestive heart failure rather than any acute true urologic issue or problem. Likewise, his erythematous cellulitis is a skin infection and does not represent underlying genitourinary pathology. I would suggest diuresis and scrotal elevation for the patient's edema and ID input for treatment of his rash and Derm evaluation if available. Thank you for allowing me to participate in the care of this unfortunate gentleman. Please do not hesitate to contact me for any questions that you may further have regarding his care. I will see him with you as needed. Ollie Castorena M.D. DR: MEDINA JOB#: [id number] CC:
[2019-01-23 04:00] VITALS: BP 126/69
[2019-01-23 06:17] LABS: EOSINOPHILS % (AUTO) 4.8 % (0.0-3.0); LYMPHOCYTES % (AUTO) 21.5 % (20.0-45.0); MEAN CORPUSCULAR VOLUME 94 FL (80-99); MONOCYTES % (AUTO) 10.8 % (1.0-10.0); NEUTROPHILS % (AUTO) 61.8 % (45.0-75.0); PLATELET COUNT 262 K/UL (150-450); RED BLOOD COUNT 3.71 M/UL (4.70-6.10); RED CELL DISTRIBUTION WIDTH 13.6 % (11.6-14.8); WHITE BLOOD COUNT 6.8 K/UL (4.8-10.8)
[2019-01-23 06:30] LABS: ALANINE AMINOTRANSFERASE 16 U/L (12-78); ALBUMIN 2.8 G/DL (3.4-5.0); ALBUMIN/GLOBULIN RATIO 0.7 (1.0-2.7); ALKALINE PHOSPHATASE 109 U/L (46-116); ANION GAP 1 mmol/L (5-15); ASPARTATE AMINO TRANSFERASE 29 U/L (15-37); BILIRUBIN,TOTAL 0.6 MG/DL (0.2-1.0); BLOOD UREA NITROGEN 17 mg/dL (7-18); CALCIUM 8.6 MG/DL (8.5-10.1); CARBON DIOXIDE 35 MMOL/L (21-32); CHLORIDE 102 MMOL/L (98-107); CREATININE 1.2 MG/DL (0.55-1.30); POTASSIUM 4.4 MMOL/L (3.5-5.1); SODIUM 138 MMOL/L (136-145)
--- NOTE | 2019-01-23 07:49 | Pulmonology Progress Note ---
Assessment/Plan Problems: (1) Abdominal pannus (2) COPD (chronic obstructive pulmonary disease) (3) ADALBERTO (obstructive sleep apnea) (4) Right heart failure (5) Lumbar spondylosis (6) Morbid obesity Assessment/Plan doing better symptomatic treatment local abx as cream continue lasix Dilaudid and Methadone for pain dvt prophylaxis. Subjective ROS Limited/Unobtainable: No Constitutional: Reports: no symptoms HEENT: Repors: no symptoms Respiratory: Reports: no symptoms Allergies: Coded Allergies: ASPIRIN (Verified Allergy, Unknown, 07/14/18) KETOROLAC (Verified Allergy, Unknown, 07/14/18) PENICILLINS (Verified Allergy, Unknown, 12/23/18) tolerated Ancef on 08/2018 Objective Last 24 Hour Vital Signs Date Time Temp Pulse Resp B/P (MAP) Pulse Ox O2 Delivery O2 Flow Rate FiO2 01/23/19 04:00 98.4 91 18 126/69 (88) 96 01/23/19 00:00 98.4 86 18 134/75 (94) 94 01/22/19 21:00 Room Air 01/22/19 20:00 99.5 95 20 132/63 (86) 91 01/22/19 19:49 94 20 96 Room Air 21 01/22/19 17:33 98.4 01/22/19 16:23 98.4 96 18 127/70 (89) 01/22/19 10:44 Room Air 01/22/19 10:16 98.1 99 18 136/81 100 Room Air 01/22/19 09:04 98.1 01/22/19 09:03 98.1 01/22/19 08:42 98.1 99 18 136/81 100 Room Air Intake and Output 01/22/19 01/23/19 19:00 07:00 Intake Total 550 ml Balance 550 ml Intake Oral 300 ml IV Total 250 ml # Voids 3 # Bowel Movements 1 General Appearance: WD/WN HEENT: normocephalic, atraumatic Respiratory/Chest: chest wall non-tender, lungs clear Cardiovascular: normal peripheral pulses, normal rate Abdomen: normal bowel sounds, soft, non tender Laboratory Tests 01/22/19 09:15: White Blood Count 7.6, Red Blood Count 3.65L, Hemoglobin 10.8L, Hematocrit 32.9L , Mean Corpuscular Volume 90, Mean Corpuscular Hemoglobin 29.5, Mean Corpuscular Hemoglobin Concent 32.8, Red Cell Distribution Width 13.2, Platelet Count 237, Mean Platelet Volume 4.6L, Neutrophils (%) (Auto) 73.6, Lymphocytes ( %) (Auto) 14.9L, Monocytes (%) (Auto) 9.6, Eosinophils (%) (Auto) 1.2, Basophils (%) (Auto) 0.7, Sodium Level 141, Potassium Level 4.6, Chloride Level 104, Carbon Dioxide Level 31, Anion Gap 6, Blood Urea Nitrogen 13, Creatinine 0.9, Estimat Glomerular Filtration Rate > 60, Glucose Level 100, Calcium Level 8.9, Total Bilirubin 0.8, Aspartate Amino Transf (AST/SGOT) 24, Alanine Aminotransferase (ALT/SGPT) 18, Alkaline Phosphatase 111, Total Protein 6.9, Albumin 2.7L, Globulin 4.2, Albumin/Globulin Ratio 0.6L 01/23/19 05:51: White Blood Count 6.8, Red Blood Count 3.71L, Hemoglobin 11.0L, Hematocrit 35.0L , Mean Corpuscular Volume 94, Mean Corpuscular Hemoglobin 29.6, Mean Corpuscular Hemoglobin Concent 31.4L, Red Cell Distribution Width 13.6, Platelet Count 262, Mean Platelet Volume 4.8L, Neutrophils (%) (Auto) 61.8, Lymphocytes (%) (Auto) 21.5, Monocytes (%) (Auto) 10.8H, Eosinophils (%) (Auto) 4.8H, Basophils (%) (Auto) 1.0, Sodium Level 138, Potassium Level 4.4, Chloride Level 102, Carbon Dioxide Level 35H, Anion Gap 1L, Blood Urea Nitrogen 17, Creatinine 1.2, Estimat Glomerular Filtration Rate > 60, Glucose Level 90, Calcium Level 8.6, Total Bilirubin 0.6, Aspartate Amino Transf (AST/SGOT) 29, Alanine Aminotransferase (ALT/SGPT) 16, Alkaline Phosphatase 109, Total Protein 6.9, Albumin 2.8L, Globulin 4.1, Albumin/Globulin Ratio 0.7L Current Medications Medications (Trade) Dose Ordered Sig/Luis Route PRN Reason Start Time Stop Time Status Last Admin Dose Admin Acetaminophen (Tylenol) 650 mg Q4H PRN ORAL fever 01/22/19 11:00 02/21/19 10:59 Acetaminophen/ Hydrocodone Bitart ([place] 10/325) 1 tab Q6H PRN ORAL mild pain 01/22/19 11:15 01/29/19 10:59 Albuterol/ Ipratropium (Albuterol/ Ipratropium) 3 ml Q4H PRN HHN Shortness of Breath 01/22/19 11:00 01/27/19 10:59 Amlodipine Besylate (Norvasc) 5 mg DAILY ORAL 01/23/19 09:00 02/22/19 08:59 Clopidogrel Bisulfate (Plavix) 75 mg DAILY ORAL 01/23/19 09:00 02/22/19 08:59 Dextrose (Dextrose 50%) 25 ml Q30M PRN IV Hypoglycemia 01/22/19 11:00 02/21/19 10:59 Dextrose (Dextrose 50%) 50 ml Q30M PRN IV hypoglycemia 01/22/19 11:00 02/21/19 10:59 Duloxetine HCl (Cymbalta) 30 mg DAILY ORAL 01/23/19 09:00 02/22/19 08:59 Fluconazole (Diflucan) 400 mg DAILY ORAL 01/23/19 09:00 01/24/19 23:59 Furosemide (Lasix) 10 mg Q8HR ORAL 01/22/19 14:00 02/21/19 13:59 01/22/19 14:00 Gabapentin (Neurontin) 900 mg THREE TIMES A DAY ORAL 01/22/19 13:00 02/21/19 12:59 01/22/19 17:04 Heparin Sodium (Porcine) (Heparin 5000 units/ml) 5,000 units EVERY 12 HOURS SUBQ 01/22/19 21:00 02/21/19 20:59 Hydromorphone HCl (Dilaudid) 5 mg Q3H PRN IV pain 7-10 01/22/19 11:00 01/29/19 10:59 01/23/19 05:16 Levetiracetam (Keppra) 1,000 mg Q8HR ORAL 01/22/19 14:00 02/21/19 13:59 01/23/19 06:50 Methadone HCl (Methadone HCl) 20 mg EVERY 8 HOURS ORAL 01/22/19 11:00 01/29/19 10:59 01/23/19 06:50 Miconazole Nitrate (Miconazole Nitrate) 1 applic BID TOPIC 01/22/19 14:00 02/21/19 13:59 01/22/19 17:34 Morphine Sulfate (Morphine Sulfate) 2 mg Q4H PRN IVP moderate pain 01/22/19 11:15 01/29/19 10:59 Nitroglycerin (Ntg) 0.4 mg Q5M PRN SL Prn Chest Pain 01/22/19 11:00 02/21/19 10:59 Ondansetron HCl (Zofran) 4 mg Q6H PRN IVP Nausea & Vomiting 01/22/19 11:00 02/21/19 10:59 Polyethylene Glycol (Miralax) 17 gm DAILYPRN PRN ORAL Constipation 01/22/19 11:00 02/21/19 10:59 Temazepam (Restoril) 15 mg HSPRN PRN ORAL Insomnia 01/22/19 11:00 01/29/19 10:59 Bill Dixon MD Jan 23, 2019 07:49
[2019-01-23 08:00] VITALS: BP 104/58
--- NOTE | 2019-01-23 08:04 | NUR ---
HAND-OFF: Report given to Franny Reeder RN.
--- NOTE | 2019-01-23 08:06 | NUR ---
NURSE NOTES: Received patient in bed, awake, alert and oriented x4. Not in acute respiratory/cardiac distress, IV intact, bed is in lowest position. Call light within reach. wound dressing is intact on bilateral legs. Will continue plan of care.
[2019-01-23] MEDS: Heparin 5000 units/ml inj SUBQ SCH ×2 (09:00→21:00)
[2019-01-23] MEDS ORDERED: Fluconazole 100mg tab ORAL SCH (09:00)
--- NOTE | 2019-01-23 09:00 | NUR ---
NURSE NOTES: patient refused to take heparin and plavix stating " I am going to have a surgery on Friday, I do not need blood thinner. I am feeling ok." RN re educated on medication.Patient fully understood but refused x3.Patient denies SOB, chest pain, alert and oriented x4. V/S stable and ambulates occationally. Will continue to monitor.
[2019-01-23] MEDS: DULoxetine 30mg cap ORAL SCH (09:12)
--- NOTE | 2019-01-23 09:42 | General Progress Note ---
Assessment/Plan Problem List: (1) Seizures ICD Codes: R56.9 - Unspecified convulsions SNOMED: 93059363 (2) Cerebrovascular accident ICD Codes: I63.9 - Cerebral infarction, unspecified SNOMED: 125438899 (3) Peripheral edema ICD Codes: R60.9 - Edema, unspecified SNOMED: 724158227 (4) Neuropathy ICD Codes: G62.9 - Polyneuropathy, unspecified SNOMED: 034073088 (5) Cellulitis of groin, left ICD Codes: L03.314 - Cellulitis of groin SNOMED: 61000976 (6) Cellulitis ICD Codes: L03.90 - Cellulitis, unspecified SNOMED: 083790969 (7) COPD (chronic obstructive pulmonary disease) ICD Codes: J44.9 - Chronic obstructive pulmonary disease, unspecified SNOMED: 80532953 (8) Morbid obesity ICD Codes: E66.01 - Morbid (severe) obesity due to excess calories SNOMED: 291920424 (9) Abdominal pannus ICD Codes: E65 - Localized adiposity SNOMED: 0527373495153 (10) Abdominal wall cellulitis ICD Codes: L03.311 - Cellulitis of abdominal wall SNOMED: 62923111 Status: unchanged Assessment/Plan: o2 pu,m tx abx pt diet cbc bmp am Subjective Constitutional: Reports: weakness Allergies: Coded Allergies: ASPIRIN (Verified Allergy, Unknown, 07/14/18) KETOROLAC (Verified Allergy, Unknown, 07/14/18) PENICILLINS (Verified Allergy, Unknown, 12/23/18) tolerated Ancef on 08/2018 All Systems: reviewed and negative except above Subjective sitting calm sl gen pain Objective Last 24 Hour Vital Signs Date Time Temp Pulse Resp B/P (MAP) Pulse Ox O2 Delivery O2 Flow Rate FiO2 01/23/19 08:20 97 104/58 01/23/19 08:00 98.8 97 18 104/58 (73) 94 01/23/19 04:00 98.4 91 18 126/69 (88) 96 01/23/19 00:00 98.4 86 18 134/75 (94) 94 01/22/19 21:00 Room Air 01/22/19 20:00 99.5 95 20 132/63 (86) 91 01/22/19 19:49 94 20 96 Room Air 21 01/22/19 17:33 98.4 01/22/19 16:23 98.4 96 18 127/70 (89) 01/22/19 10:44 Room Air 01/22/19 10:16 98.1 99 18 136/81 100 Room Air Intake and Output 01/22/19 01/23/19 19:00 07:00 Intake Total 550 ml Balance 550 ml Intake Oral 300 ml IV Total 250 ml # Voids 3 # Bowel Movements 1 Laboratory Tests 01/23/19 05:51: White Blood Count 6.8, Red Blood Count 3.71L, Hemoglobin 11.0L, Hematocrit 35.0L , Mean Corpuscular Volume 94, Mean Corpuscular Hemoglobin 29.6, Mean Corpuscular Hemoglobin Concent 31.4L, Red Cell Distribution Width 13.6, Platelet Count 262, Mean Platelet Volume 4.8L, Neutrophils (%) (Auto) 61.8, Lymphocytes (%) (Auto) 21.5, Monocytes (%) (Auto) 10.8H, Eosinophils (%) (Auto) 4.8H, Basophils (%) (Auto) 1.0, Sodium Level 138, Potassium Level 4.4, Chloride Level 102, Carbon Dioxide Level 35H, Anion Gap 1L, Blood Urea Nitrogen 17, Creatinine 1.2, Estimat Glomerular Filtration Rate > 60, Glucose Level 90, Calcium Level 8.6, Total Bilirubin 0.6, Aspartate Amino Transf (AST/SGOT) 29, Alanine Aminotransferase (ALT/SGPT) 16, Alkaline Phosphatase 109, Total Protein 6.9, Albumin 2.8L, Globulin 4.1, Albumin/Globulin Ratio 0.7L Height (Feet): 6 Height (Inches): 0.00 Weight (Pounds): 500 General Appearance: alert EENT: normal ENT inspection Neck: normal alignment Cardiovascular: normal peripheral pulses, normal rate, regular rhythm Respiratory/Chest: chest wall non-tender, lungs clear, normal breath sounds Abdomen: normal bowel sounds, soft, distended Extremities: normal inspection Edema: 1+ Arm (L), 1+ Arm (R), 1+ Leg (L), 1+ Leg (R), 1+ Pedal (L), 1+ Pedal ( R), 1+ Generalized Edema: trace edema Neurologic: responsive, motor weakness Skin: normal pigmentation, warm/dry Ernesto Nicole DO Jan 23, 2019 09:42
--- NOTE | 2019-01-23 09:47 | Cardiology Progress Note ---
Assessment/Plan Status: stable Assessment/Plan ASSESSMENT AND PLAN: 1. Hypertension. Continue amlodipine 5 mg daily. Continue lasix for fluid overload 10 mg every eight hours -controlled 2. Severe bilateral lower extremity edema and cellulitis. On IV antibiotic per Dr. Patterson. 3. Abdominal pannus. 4. Chronic obstructive pulmonary disease. 5. Obstructive sleep apnea. 6. Right heart failure. 7. Lumbar spondylosis. 8. Morbid obesity. Subjective Cardiovascular: Reports: no symptoms Respiratory: Reports: no symptoms Gastrointestinal/Abdominal: Reports: no symptoms Genitourinary: Reports: no symptoms Subjective Coverage for [place] No acute events, no chest pain, no SOB, vitals stable Objective Last 24 Hour Vital Signs Date Time Temp Pulse Resp B/P (MAP) Pulse Ox O2 Delivery O2 Flow Rate FiO2 01/23/19 09:43 89 18 96 Room Air 21 01/23/19 08:20 97 104/58 01/23/19 08:00 98.8 97 18 104/58 (73) 94 01/23/19 04:00 98.4 91 18 126/69 (88) 96 01/23/19 00:00 98.4 86 18 134/75 (94) 94 01/22/19 21:00 Room Air 01/22/19 20:00 99.5 95 20 132/63 (86) 91 01/22/19 19:49 94 20 96 Room Air 21 01/22/19 17:33 98.4 01/22/19 16:23 98.4 96 18 127/70 (89) 01/22/19 10:44 Room Air 01/22/19 10:16 98.1 99 18 136/81 100 Room Air General Appearance: no apparent distress, alert EENT: PERRL/EOMI, normal ENT inspection, TMs normal, pharynx normal Neck: non-tender, normal alignment, supple, no JVD Rhythm: NSR Cardiovascular: normal peripheral pulses, normal rate Respiratory/Chest: chest wall non-tender, lungs clear, normal breath sounds Abdomen: normal bowel sounds, non tender, soft, no organomegaly Extremities: normal range of motion, non-tender 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, no motor/sensory deficits Intake and Output 01/22/19 01/23/19 19:00 07:00 Intake Total 550 ml Balance 550 ml Intake Oral 300 ml IV Total 250 ml # Voids 3 # Bowel Movements 1 Laboratory Tests Test 01/23/19 05:51 White Blood Count 6.8 K/UL (4.8-10.8) Red Blood Count 3.71 M/UL (4.70-6.10) L Hemoglobin 11.0 G/DL (14.2-18.0) L Hematocrit 35.0 % (42.0-52.0) L Mean Corpuscular Volume 94 FL (80-99) Mean Corpuscular Hemoglobin 29.6 PG (27.0-31.0) Mean Corpuscular Hemoglobin Concent 31.4 G/DL (32.0-36.0) L Red Cell Distribution Width 13.6 % (11.6-14.8) Platelet Count 262 K/UL (150-450) Mean Platelet Volume 4.8 FL (6.5-10.1) L Neutrophils (%) (Auto) 61.8 % (45.0-75.0) Lymphocytes (%) (Auto) 21.5 % (20.0-45.0) Monocytes (%) (Auto) 10.8 % (1.0-10.0) H Eosinophils (%) (Auto) 4.8 % (0.0-3.0) H Basophils (%) (Auto) 1.0 % (0.0-2.0) Sodium Level 138 MMOL/L (136-145) Potassium Level 4.4 MMOL/L (3.5-5.1) Chloride Level 102 MMOL/L (98-107) Carbon Dioxide Level 35 MMOL/L (21-32) H Anion Gap 1 mmol/L (5-15) L Blood Urea Nitrogen 17 mg/dL (7-18) Creatinine 1.2 MG/DL (0.55-1.30) Estimat Glomerular Filtration Rate > 60 mL/min (>60) Glucose Level 90 MG/DL (74-106) Calcium Level 8.6 MG/DL (8.5-10.1) Total Bilirubin 0.6 MG/DL (0.2-1.0) Aspartate Amino Transf (AST/SGOT) 29 U/L (15-37) Alanine Aminotransferase (ALT/SGPT) 16 U/L (12-78) Alkaline Phosphatase 109 U/L (46-116) Total Protein 6.9 G/DL (6.4-8.2) Albumin 2.8 G/DL (3.4-5.0) L Globulin 4.1 g/dL Albumin/Globulin Ratio 0.7 (1.0-2.7) L Elliot Davis MD Jan 23, 2019 09:47
[2019-01-23] MEDS: Miconazole 2% Cream 30gm TOPIC SCH ×2 (10:07→17:13)
[2019-01-23 12:00] VITALS: BP 141/63
--- NOTE | 2019-01-23 12:26 | Infectious Diseases Prog Note ---
Assessment/Plan Assessment/Plan Abx: IV Vancomycin x1 01/22 Fluconazole 01/22- Assessment: R groin swelling and pain- 2ry from Volume overload Sandy intertrigo B/l Leg cellulitis and panniculitis - in the setting of chronic venous stasis, s /p Rx Active infectious cellulitis essentially resolved. Now he has chronic venous stasis and neuropathic pain with poorly healing wounds. Alot off this is due to the severe swelling in his feet but also he is poorly compliant with wound care instructions. Afebrile No leukocytosis Recent seizure episode -had L side weakness and spasticity CVA HTN bipolar disorder w/ psychotic features tobacco abuse anxiety disorder chronic pain CHF seizure disorder COPD morbid obesity Dm2 HTN SNF resident Plan: - Continue PO Fluconazole #2/ -Cont Miconazole topical - Needs wound care for healing. - 01/07/19 SP IV Dapto d# 14 - 01/06/19 S/P Levofloxacin #7 - 12/25 sp Bactrim #4/ and add IV Ancef #3/ for cellulitis - Monitor CBC/CMP, temperatures - aspiration precautions - wound care per hospital protocol -[facility] eval Subjective Allergies: Coded Allergies: ASPIRIN (Verified Allergy, Unknown, 07/14/18) KETOROLAC (Verified Allergy, Unknown, 07/14/18) PENICILLINS (Verified Allergy, Unknown, 12/23/18) tolerated Ancef on 08/2018 Subjective afebrile no leukocytosis Objective Vital Signs Last 24 Hour Vital Signs Date Time Temp Pulse Resp B/P (MAP) Pulse Ox O2 Delivery O2 Flow Rate FiO2 01/23/19 12:00 98.0 92 18 141/63 (89) 94 01/23/19 09:43 89 18 96 Room Air 21 01/23/19 09:00 Room Air 01/23/19 08:20 97 104/58 01/23/19 08:00 98.8 97 18 104/58 (73) 94 01/23/19 04:00 98.4 91 18 126/69 (88) 96 01/23/19 00:00 98.4 86 18 134/75 (94) 94 01/22/19 21:00 Room Air 01/22/19 20:00 99.5 95 20 132/63 (86) 91 01/22/19 19:49 94 20 96 Room Air 21 01/22/19 17:33 98.4 01/22/19 16:23 98.4 96 18 127/70 (89) Height (Feet): 6 Height (Inches): 0.00 Weight (Pounds): 500 Objective General Appearance: alert, moderate distress, obese Head: atraumatic Eyes: bilateral eye normal inspection ENT: normal ENT inspection, hearing grossly normal, normal voice Neck: normal inspection, full range of motion, supple, no bony tend Respiratory: normal inspection, lungs clear, normal breath sounds, no respiratory distress, no retraction, no wheezing Cardiovascular #1: regular rate, rhythm Gastrointestinal: normal inspection, normal bowel sounds, soft, no guarding, no hernia, other - Left lower abdominal area Genitourinary: other - Swollen groin edematous erythematous enlarged scrotum Musculoskeletal: normal inspection, back normal, normal range of motion Neurologic: normal inspection, alert, responsive, speech normal Psychiatric: depressed affect, anxious Skin: normal inspection, normal color, no rash Laboratory Tests Test 01/23/19 05:51 White Blood Count 6.8 K/UL (4.8-10.8) Red Blood Count 3.71 M/UL (4.70-6.10) L Hemoglobin 11.0 G/DL (14.2-18.0) L Hematocrit 35.0 % (42.0-52.0) L Mean Corpuscular Volume 94 FL (80-99) Mean Corpuscular Hemoglobin 29.6 PG (27.0-31.0) Mean Corpuscular Hemoglobin Concent 31.4 G/DL (32.0-36.0) L Red Cell Distribution Width 13.6 % (11.6-14.8) Platelet Count 262 K/UL (150-450) Mean Platelet Volume 4.8 FL (6.5-10.1) L Neutrophils (%) (Auto) 61.8 % (45.0-75.0) Lymphocytes (%) (Auto) 21.5 % (20.0-45.0) Monocytes (%) (Auto) 10.8 % (1.0-10.0) H Eosinophils (%) (Auto) 4.8 % (0.0-3.0) H Basophils (%) (Auto) 1.0 % (0.0-2.0) Sodium Level 138 MMOL/L (136-145) Potassium Level 4.4 MMOL/L (3.5-5.1) Chloride Level 102 MMOL/L (98-107) Carbon Dioxide Level 35 MMOL/L (21-32) H Anion Gap 1 mmol/L (5-15) L Blood Urea Nitrogen 17 mg/dL (7-18) Creatinine 1.2 MG/DL (0.55-1.30) Estimat Glomerular Filtration Rate > 60 mL/min (>60) Glucose Level 90 MG/DL (74-106) Calcium Level 8.6 MG/DL (8.5-10.1) Total Bilirubin 0.6 MG/DL (0.2-1.0) Aspartate Amino Transf (AST/SGOT) 29 U/L (15-37) Alanine Aminotransferase (ALT/SGPT) 16 U/L (12-78) Alkaline Phosphatase 109 U/L (46-116) Total Protein 6.9 G/DL (6.4-8.2) Albumin 2.8 G/DL (3.4-5.0) L Globulin 4.1 g/dL Albumin/Globulin Ratio 0.7 (1.0-2.7) L Current Medications Medications (Trade) Dose Ordered Sig/Luis Route PRN Reason Start Time Stop Time Status Last Admin Dose Admin Acetaminophen (Tylenol) 650 mg Q4H PRN ORAL fever 01/22/19 11:00 02/21/19 10:59 Acetaminophen/ Hydrocodone Bitart ([place] 10/325) 1 tab Q6H PRN ORAL mild pain 01/22/19 11:15 01/29/19 10:59 Albuterol/ Ipratropium (Albuterol/ Ipratropium) 3 ml Q4H PRN HHN Shortness of Breath 01/22/19 11:00 01/27/19 10:59 Amlodipine Besylate (Norvasc) 5 mg DAILY ORAL 01/23/19 09:00 02/22/19 08:59 Clopidogrel Bisulfate (Plavix) 75 mg DAILY ORAL 01/23/19 09:00 02/22/19 08:59 Dextrose (Dextrose 50%) 25 ml Q30M PRN IV Hypoglycemia 01/22/19 11:00 02/21/19 10:59 Dextrose (Dextrose 50%) 50 ml Q30M PRN IV hypoglycemia 01/22/19 11:00 02/21/19 10:59 Duloxetine HCl (Cymbalta) 30 mg DAILY ORAL 01/23/19 09:00 02/22/19 08:59 01/23/19 09:12 Fluconazole (Diflucan) 400 mg DAILY ORAL 01/23/19 09:00 01/24/19 23:59 01/23/19 09:12 Furosemide (Lasix) 10 mg Q8HR ORAL 01/22/19 14:00 02/21/19 13:59 01/22/19 14:00 Gabapentin (Neurontin) 900 mg THREE TIMES A DAY ORAL 01/22/19 13:00 02/21/19 12:59 01/23/19 09:12 Heparin Sodium (Porcine) (Heparin 5000 units/ml) 5,000 units EVERY 12 HOURS SUBQ 01/22/19 21:00 02/21/19 20:59 Hydromorphone HCl (Dilaudid) 5 mg Q3H PRN IV pain 7-10 01/22/19 11:00 01/29/19 10:59 01/23/19 09:13 Levetiracetam (Keppra) 1,000 mg Q8HR ORAL 01/22/19 14:00 02/21/19 13:59 01/23/19 06:50 Methadone HCl (Methadone HCl) 20 mg EVERY 8 HOURS ORAL 01/22/19 11:00 01/29/19 10:59 01/23/19 06:50 Miconazole Nitrate (Miconazole Nitrate) 1 applic BID TOPIC 01/22/19 14:00 02/21/19 13:59 01/23/19 10:07 Morphine Sulfate (Morphine Sulfate) 2 mg Q4H PRN IVP moderate pain 01/22/19 11:15 01/29/19 10:59 Nitroglycerin (Ntg) 0.4 mg Q5M PRN SL Prn Chest Pain 01/22/19 11:00 02/21/19 10:59 Ondansetron HCl (Zofran) 4 mg Q6H PRN IVP Nausea & Vomiting 01/22/19 11:00 02/21/19 10:59 Polyethylene Glycol (Miralax) 17 gm DAILYPRN PRN ORAL Constipation 01/22/19 11:00 02/21/19 10:59 Temazepam (Restoril) 15 mg HSPRN PRN ORAL Insomnia 01/22/19 11:00 01/29/19 10:59 Alexa Patterson M.D. Jan 23, 2019 12:25
[2019-01-23] MEDS ORDERED: LORazepam 1mg tab ORAL PRN (12:45)
--- NOTE | 2019-01-23 13:07 | NUR ---
PT Note Attempted to see patient for eval/tx but patient refused at this time; c/o severe pain on his crotal area. Patient requests to be seen tomorrow AM. RN was notified.
[2019-01-23 16:00] VITALS: BP 115/65
--- NOTE | 2019-01-23 16:05 | NUR ---
CASE MANAGEMENT: INITIAL REVIEW 53 YO M BRIA FROM [facility] CC: SKIN RASH PMHx: MORBID OBESITY. COPD. CVA. SZ. CHF. SI:CELLULITIS. T 98.1 HR 84 RR 18 B/P 154/90 SATS 94% ON RA CO2 35 IS: VANCO IV X1 FLUCONAZOLE IV X1 DILAUDID IV X1 PATIENT ADMITTED TO MED/SURG 01/22/2019 @ 1043 DCP: PATIENT TO BE DISCHARGED TO SNF ONCE MEDICALLY CLEARED, PLAN OF CARE: 2D ECHO SCROTAL ELEVATION VENOUS DUPLEX Addendum: 01/25/19 at 1812 by Emi Villatoro CM INTERQUAL MET
--- NOTE | 2019-01-23 19:15 | NUR ---
NURSE NOTES: Received a report from MICAELA Huff. Pt is sleeping comfortably. On room air. No pain/discomfort noted. IV site is patent and intact. Bed in lowest position. Call light within reach. Will continue to monitor.
--- NOTE | 2019-01-23 19:45 | NUR ---
HAND-OFF: Report given to Lolis.
[2019-01-23 20:00] VITALS: BP 127/74
--- NOTE | 2019-01-23 20:00 | NUR ---
NURSE NOTES: Lolis HINOJOSA asked the patient to urinate in the specimen cup for urinalysis. Pt verbalized understanding and agreed to fill it in later when he urinates.
--- NOTE | 2019-01-23 20:41 | NUR ---
NURSE NOTES: Pt refused the siderails to be padded and bed alarm on. He also refused the Heparin.
[2019-01-24] VITALS: BP 124/72
--- NOTE | 2019-01-24 00:15 | Consultation ---
DATE OF CONSULTATION: 01/23/2019 HISTORY OF PRESENT ILLNESS: This is a 53-year-old male patient, who is actually admitted to the hospital. He has scrotal edema and paranoia and possible cellulitis, so he came in and being admitted back to [facility] after he was discharged the day before since the patient has been having a difficult time. The patient has been having overall feelings of helplessness and hopelessness. He also has an underlying history of anxiety disorder. He is extremely mood labile. I have seen the patient several times during his last admission, which was less than 2 days prior to this admission and when I walked in, he was little irritable as he was during the last admission that was few days in a while he was doing. He said, "what you want, leave me alone." He is very irritable, seemed to be very guarded. Continues to be annoyed by the fact that he has been seen by Psychiatry during his last admission, but the main reason why the patient came back in again was, he had a scrotal swelling. He has also increased shortness of breath. PAST MEDICAL HISTORY: He has morbid obesity, CVA, congestive heart failure, hypertension, COPD, and seizure disorder. ALLERGIES: He has allergies to penicillin, aspirin, and Toradol. SUBSTANCE ABUSE HISTORY: The patient denies drug and alcohol use. FAMILY PSYCHIATRIC HISTORY: Denies. PAIN ASSESSMENT: A 3/10 pain. DEVELOPMENTAL PROBLEMS: Denies. SOCIAL HISTORY: This patient is currently living at [facility]. He is financially supported by [facility] and Medicare. PSYCHIATRIC HISTORY: History of major depression. He has been admitted to the hospital previously. STRENGTHS: He is motivated to get better and he has a place to live. WEAKNESSES: Impulsive with minimal support system. MENTAL STATUS EXAMINATION: This patient is a 53-year-old male. His appearance is disheveled. His attitude is irritable and agitated. His affect is guarded and restricted. Intellect poor because he does not know the current President or the last four Presidents. Mood, depressed and anxious. Motor activity, psychomotor agitation. Attention span is poor. He cannot do serial sevens or spell world backwards. Orientation x2. He is oriented to person and place and not to time or situation. Speech is pressured. Thought process, disorganized and illogical. Thought content, no auditory hallucinations or paranoid delusions. He has good perception. He has no perceptual disturbances, but abstract reasoning is poor. He does need a time to understand proverbs. He only has concrete thinking. Insight is poor because he does not understand the severity of his mood disorder. Judgment is good because he is able to make medical decisions for himself. He denies any suicidal or homicidal ideation. As far as his short-term memory 3 out of 3 words recalled after 5 minutes delay with good short-term memory. Long-term memory is intact based on his knowledge of long-term events in his life such as the high school that he went to. Gait is normal. There is no abnormal movement. There is no history of recent therapy. 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 Secondary medical is genital swelling as well as cerebrovascular disease, abdominal wall cellulitis, hyponatremia, knee osteomyelitis, psychosocial stressors, and financial functional impairment is mild. PLAN: I may continue to treat this patient with a dose of Cymbalta at a dose of 30 mg daily and Neurontin 900 mg 3 times a day for both anxiety and neuropathy. I am going treat with Remeron 15 mg nightly p.r.n. In addition to that, I am going to add Ativan 1 mg every 6 hours p.r.n. anxiety to this patient and provided him with 20 minutes of reality based supportive psychotherapy. A 20 minutes of cognitive behavioral therapy provided to help him identify his automatic negative thoughts and help him convert those negative thoughts to more positive thoughts to reduce depression, anxiety, and mood lability. Chart reviewed. Discussed with staff. Seen and assessed in his room. Laney Mcghee M.D. DR: ENRIQUE JOB#: [id number] CC:
--- NOTE | 2019-01-24 01:35 | NUR ---
NURSE NOTES: Sent the urine specimen to the lab for urinalysis.
[2019-01-24 01:52] LABS: APPEARANCE,URINE CLEAR; BILIRUBIN, URINE NEGATIVE (NEGATIVE); COLOR,URINE PALE YELLOW; GLUCOSE, URINE (UA) NEGATIVE (NEGATIVE); KETONES,URINE NEGATIVE (NEGATIVE); LEUKOCYTE ESTERASE ,URINE 2+ (NEGATIVE); NITRITE,URINE NEGATIVE (NEGATIVE); PH,URINE 5 (4.5-8.0); PROTEIN,URINE 2+ (NEGATIVE); UROBILINOGEN,URINE NORMAL MG/DL (0.0-1.0)
[2019-01-24 04:00] VITALS: BP 155/88
--- NOTE | 2019-01-24 04:05 | NUR ---
NURSE NOTES: Octavio from the [employer] called and notified Lolis HINOJOSA about the positive MRSA nares. Charge Nurse Kaity made aware.
--- NOTE | 2019-01-24 04:55 | NUR ---
NURSE NOTES: Contacted Dr. Nicole about the pt being positive for MRSA. Awaiting for response. Charge Nurse Kaity made aware.
--- NOTE | 2019-01-24 05:49 | NUR ---
NURSE NOTES: Contacted Dr. Frank about the pt being positive for MRSA nares. Awaiting for call back.
--- NOTE | 2019-01-24 06:00 | Consultation ---
DATE OF CONSULTATION: 01/23/2019 PSYCHOTHERAPY CONSULTATION PROGRESS NOTE CONSULTING PHYSICIAN: Liu Jackman PsyD. TREATING ATTENDING PHYSICIAN: Ernesto Nicole D.O. HISTORY OF PRESENT ILLNESS: The patient is a male patient, 53-year-old. The patient was discharged to assisted with shortness of breath and swelling of the scrotum. He called 911 and saw doctor at the hospital. The patient had a history of bipolar disorder, anxiety, and depression. For these reasons, he was referred for psychotherapeutic services. The patient is very agitated, suicidal, and hopeless. The patient states that he was in severe pain, but he denies suicidal or homicidal ideation thoughts of ideation. He denies any auditory or visual hallucinations. He states he has chest discomfort, difficulty breathing, and states that he has been very uncomfortable at this time. PAST MEDICAL HISTORY: Includes history of seizures, right leg pain, hyponatremia, COPD, and morbid obesity. ALLERGIES: The patient has allergies to aspirin, ketorolac, and penicillin. SUBSTANCE ABUSE HISTORY: The patient denies history of alcohol use or illicit substance use. PSYCHIATRIC HISTORY: He has had a history of bipolar disorder, anxiety, and depression and has been treated with psychotropic medications in the past. SOCIAL HISTORY: The patient is a 53-year-old single male patient. Financially sustained through [employer]. MENTAL STATUS EXAMINATION: Alert and oriented to person, place, time, and situation. His mood is anxious. Affect is guarded. Thought process is disorganized. Thought content is linear. He has poor attention and concentration. Poor insight and judgement and impulse control. I assessed the patient. Provided the patient with, 1. Supportive psychotherapy, which is an approach focused on identifying positive emotions of stress and process the patient's thoughts and feelings of depression and helplessness in session. 2. Provided the patient with cognitive behavioral therapy, which is focused on dealing with problems and emotional lability. DIAGNOSIS: Bipolar 1 disorder, moderate, mixed without psychotic feature. PLAN: Plan is to maintain medication compliance, discussing for positive coping skills, and stabilizing the thoughts and behavior. Psychotherapy was provided to the patient. This clinician has reviewed the patient's chart. Discussed the treatment with treatment team. Liu Jackman PsyD. DR: YOHANA JOB#: [id number] CC:
--- NOTE | 2019-01-24 07:03 | NUR ---
NURSE'S NOTE: CALLED DR CASTRO THRU HIS OFFICE EXCHANGE FOR CRITICAL VALUE OF MRSA NARES PER PROTOCOL
[2019-01-24 07:10] LABS: BASOPHILS % (AUTO) 0.9 % (0.0-2.0); EOSINOPHILS % (AUTO) 4.6 % (0.0-3.0); HEMATOCRIT 34.8 % (42.0-52.0); LYMPHOCYTES % (AUTO) 23.1 % (20.0-45.0); MEAN CORPUSCULAR VOLUME 95 FL (80-99); MONOCYTES % (AUTO) 10.8 % (1.0-10.0); NEUTROPHILS % (AUTO) 60.6 % (45.0-75.0); PLATELET COUNT 275 K/UL (150-450); RED BLOOD COUNT 3.65 M/UL (4.70-6.10); RED CELL DISTRIBUTION WIDTH 13.8 % (11.6-14.8); WHITE BLOOD COUNT 7.3 K/UL (4.8-10.8)
--- NOTE | 2019-01-24 07:12 | Pulmonology Progress Note ---
Assessment/Plan Problems: (1) Abdominal pannus (2) COPD (chronic obstructive pulmonary disease) (3) ADALBERTO (obstructive sleep apnea) (4) Right heart failure (5) Lumbar spondylosis (6) Morbid obesity Assessment/Plan doing better symptomatic treatment local abx as cream continue lasix Dilaudid and Methadone for pain dvt prophylaxis. Subjective ROS Limited/Unobtainable: No Constitutional: Reports: no symptoms HEENT: Repors: no symptoms Respiratory: Reports: no symptoms Allergies: Coded Allergies: ASPIRIN (Verified Allergy, Unknown, 07/14/18) KETOROLAC (Verified Allergy, Unknown, 07/14/18) PENICILLINS (Verified Allergy, Unknown, 12/23/18) tolerated Ancef on 08/2018 Objective Last 24 Hour Vital Signs Date Time Temp Pulse Resp B/P (MAP) Pulse Ox O2 Delivery O2 Flow Rate FiO2 01/24/19 04:00 98.0 95 18 155/88 (110) 97 01/24/19 00:00 98.2 88 17 124/72 (89) 94 01/23/19 21:00 Room Air 01/23/19 20:59 84 18 98 Room Air 21 01/23/19 20:00 98.7 92 18 127/74 (91) 95 01/23/19 16:00 98.4 83 19 115/65 (82) 94 01/23/19 12:00 98.0 92 18 141/63 (89) 94 01/23/19 09:43 89 18 96 Room Air 21 01/23/19 09:00 Room Air 01/23/19 08:20 97 104/58 01/23/19 08:00 98.8 97 18 104/58 (73) 94 Intake and Output 01/23/19 01/24/19 19:00 07:00 Intake Total 2040 ml Balance 2040 ml Intake Oral 240 ml Other 1800 ml # Voids 4 # Bowel Movements 1 General Appearance: WD/WN HEENT: normocephalic, atraumatic Respiratory/Chest: chest wall non-tender, lungs clear Cardiovascular: normal peripheral pulses, regular rhythm Abdomen: normal bowel sounds, soft, non tender Genitourinary: normal external genitalia Extremities: no clubbing Skin: no rash Microbiology Date/Time Source Procedure Growth Status 01/22/19 09:05 Nasal Nares MRSA Culture - Final Staphylococcus Aureus - Mrsa Complete Laboratory Tests 01/24/19 01:30: Urine Color Pale yellow, Urine Appearance Clear, Urine pH 5, Urine Specific [place] 1.025, Urine Protein 2+H, Urine Glucose (UA) Negative, Urine Ketones Negative, Urine Blood 2+H, Urine Nitrite Negative, Urine Bilirubin Negative, Urine Urobilinogen Normal, Urine Leukocyte Esterase 2+H, Urine RBC 0-2H, Urine WBC 0-2, Urine Squamous Epithelial Cells Few, Urine Bacteria Few, Urine Mucus FewH 01/24/19 06:55: White Blood Count 7.3, Red Blood Count 3.65L, Hemoglobin 11.0L, Hematocrit 34.8L , Mean Corpuscular Volume 95, Mean Corpuscular Hemoglobin 30.2, Mean Corpuscular Hemoglobin Concent 31.7L, Red Cell Distribution Width 13.8, Platelet Count 275, Mean Platelet Volume 5.0L, Neutrophils (%) (Auto) 60.6, Lymphocytes (%) (Auto) 23.1, Monocytes (%) (Auto) 10.8H, Eosinophils (%) (Auto) 4.6H, Basophils (%) (Auto) 0.9, Sodium Level [Pending], Potassium Level [Pending ], Chloride Level [Pending], Carbon Dioxide Level [Pending], Blood Urea Nitrogen [Pending], Creatinine [Pending], Estimat Glomerular Filtration Rate [ Pending], Glucose Level [Pending], Calcium Level [Pending] Current Medications Medications (Trade) Dose Ordered Sig/Luis Route PRN Reason Start Time Stop Time Status Last Admin Dose Admin Acetaminophen (Tylenol) 650 mg Q4H PRN ORAL fever 01/22/19 11:00 02/21/19 10:59 Acetaminophen/ Hydrocodone Bitart ([place] 10/325) 1 tab Q6H PRN ORAL mild pain 01/22/19 11:15 01/29/19 10:59 Albuterol/ Ipratropium (Albuterol/ Ipratropium) 3 ml Q4H PRN HHN Shortness of Breath 01/22/19 11:00 01/27/19 10:59 Amlodipine Besylate (Norvasc) 5 mg DAILY ORAL 01/23/19 09:00 02/22/19 08:59 Clopidogrel Bisulfate (Plavix) 75 mg DAILY ORAL 01/23/19 09:00 02/22/19 08:59 Dextrose (Dextrose 50%) 25 ml Q30M PRN IV Hypoglycemia 01/22/19 11:00 02/21/19 10:59 Dextrose (Dextrose 50%) 50 ml Q30M PRN IV hypoglycemia 01/22/19 11:00 02/21/19 10:59 Duloxetine HCl (Cymbalta) 30 mg DAILY ORAL 01/23/19 09:00 02/22/19 08:59 01/23/19 09:12 Fluconazole (Diflucan) 400 mg DAILY ORAL 01/24/19 09:00 01/26/19 23:59 Furosemide (Lasix) 10 mg Q8HR ORAL 01/22/19 14:00 02/21/19 13:59 01/24/19 05:34 Gabapentin (Neurontin) 900 mg THREE TIMES A DAY ORAL 01/22/19 13:00 02/21/19 12:59 01/23/19 17:13 Heparin Sodium (Porcine) (Heparin 5000 units/ml) 5,000 units EVERY 12 HOURS SUBQ 01/22/19 21:00 02/21/19 20:59 Hydromorphone HCl (Dilaudid) 5 mg Q3H PRN IV pain 7-10 01/22/19 11:00 01/29/19 10:59 01/24/19 06:45 Levetiracetam (Keppra) 1,000 mg Q8HR ORAL 01/22/19 14:00 02/21/19 13:59 01/24/19 05:33 Lorazepam (Ativan) 1 mg Q6H PRN ORAL For Anxiety 01/23/19 12:45 01/30/19 12:44 Methadone HCl (Methadone HCl) 20 mg EVERY 8 HOURS ORAL 01/22/19 11:00 01/29/19 10:59 01/24/19 05:34 Miconazole Nitrate (Miconazole Nitrate) 1 applic BID TOPIC 01/22/19 14:00 02/21/19 13:59 01/23/19 17:13 Morphine Sulfate (Morphine Sulfate) 2 mg Q4H PRN IVP moderate pain 01/22/19 11:15 01/29/19 10:59 Nitroglycerin (Ntg) 0.4 mg Q5M PRN SL Prn Chest Pain 01/22/19 11:00 02/21/19 10:59 Ondansetron HCl (Zofran) 4 mg Q6H PRN IVP Nausea & Vomiting 01/22/19 11:00 02/21/19 10:59 Polyethylene Glycol (Miralax) 17 gm DAILYPRN PRN ORAL Constipation 01/22/19 11:00 02/21/19 10:59 Temazepam (Restoril) 15 mg HSPRN PRN ORAL Insomnia 01/22/19 11:00 01/29/19 10:59 Bill Dixon MD Jan 24, 2019 07:12
--- NOTE | 2019-01-24 07:22 | NUR ---
HAND-OFF: Report given to MICAELA Shearer. Endorsed to Janki HINOJOSA to follow up with Dr. Frank about the positive MRSA nares and inform Dr. Taylor about the result of the urinalysis.
--- NOTE | 2019-01-24 07:40 | General Progress Note ---
Assessment/Plan Problem List: (1) Seizures ICD Codes: R56.9 - Unspecified convulsions SNOMED: 91451092 (2) Cerebrovascular accident ICD Codes: I63.9 - Cerebral infarction, unspecified SNOMED: 220775440 (3) Peripheral edema ICD Codes: R60.9 - Edema, unspecified SNOMED: 815625574 (4) Neuropathy ICD Codes: G62.9 - Polyneuropathy, unspecified SNOMED: 571620799 (5) Cellulitis of groin, left ICD Codes: L03.314 - Cellulitis of groin SNOMED: 41648035 (6) Cellulitis ICD Codes: L03.90 - Cellulitis, unspecified SNOMED: 398863265 (7) COPD (chronic obstructive pulmonary disease) ICD Codes: J44.9 - Chronic obstructive pulmonary disease, unspecified SNOMED: 18608104 (8) Morbid obesity ICD Codes: E66.01 - Morbid (severe) obesity due to excess calories SNOMED: 280701878 (9) Abdominal pannus ICD Codes: E65 - Localized adiposity SNOMED: 0183664200393 (10) Abdominal wall cellulitis ICD Codes: L03.311 - Cellulitis of abdominal wall SNOMED: 30673685 (11) UTI (urinary tract infection) ICD Codes: N39.0 - Urinary tract infection, site not specified SNOMED: 38144889 Status: stable, progressing Assessment/Plan: o2 pulm tx abx pt diet cbc bmp am Subjective Constitutional: Reports: weakness Allergies: Coded Allergies: ASPIRIN (Verified Allergy, Unknown, 07/14/18) KETOROLAC (Verified Allergy, Unknown, 07/14/18) PENICILLINS (Verified Allergy, Unknown, 12/23/18) tolerated Ancef on 08/2018 All Systems: reviewed and negative except above Subjective sleepy calm Objective Last 24 Hour Vital Signs Date Time Temp Pulse Resp B/P (MAP) Pulse Ox O2 Delivery O2 Flow Rate FiO2 01/24/19 04:00 98.0 95 18 155/88 (110) 97 01/24/19 00:00 98.2 88 17 124/72 (89) 94 01/23/19 21:00 Room Air 01/23/19 20:59 84 18 98 Room Air 21 01/23/19 20:00 98.7 92 18 127/74 (91) 95 01/23/19 16:00 98.4 83 19 115/65 (82) 94 01/23/19 12:00 98.0 92 18 141/63 (89) 94 01/23/19 09:43 89 18 96 Room Air 21 01/23/19 09:00 Room Air 01/23/19 08:20 97 104/58 01/23/19 08:00 98.8 97 18 104/58 (73) 94 Intake and Output 01/23/19 01/24/19 19:00 07:00 Intake Total 2040 ml Balance 2040 ml Intake Oral 240 ml Other 1800 ml # Voids 4 # Bowel Movements 1 Laboratory Tests 01/24/19 01:30: Urine Color Pale yellow, Urine Appearance Clear, Urine pH 5, Urine Specific [place] 1.025, Urine Protein 2+H, Urine Glucose (UA) Negative, Urine Ketones Negative, Urine Blood 2+H, Urine Nitrite Negative, Urine Bilirubin Negative, Urine Urobilinogen Normal, Urine Leukocyte Esterase 2+H, Urine RBC 0-2H, Urine WBC 0-2, Urine Squamous Epithelial Cells Few, Urine Bacteria Few, Urine Mucus FewH 01/24/19 06:55: White Blood Count 7.3, Red Blood Count 3.65L, Hemoglobin 11.0L, Hematocrit 34.8L , Mean Corpuscular Volume 95, Mean Corpuscular Hemoglobin 30.2, Mean Corpuscular Hemoglobin Concent 31.7L, Red Cell Distribution Width 13.8, Platelet Count 275, Mean Platelet Volume 5.0L, Neutrophils (%) (Auto) 60.6, Lymphocytes (%) (Auto) 23.1, Monocytes (%) (Auto) 10.8H, Eosinophils (%) (Auto) 4.6H, Basophils (%) (Auto) 0.9, Sodium Level [Pending], Potassium Level [Pending ], Chloride Level [Pending], Carbon Dioxide Level [Pending], Blood Urea Nitrogen [Pending], Creatinine [Pending], Estimat Glomerular Filtration Rate [ Pending], Glucose Level [Pending], Calcium Level [Pending] Height (Feet): 6 Height (Inches): 0.00 Weight (Pounds): 500 General Appearance: lethargic EENT: normal ENT inspection Neck: normal alignment Cardiovascular: normal peripheral pulses, normal rate, regular rhythm Respiratory/Chest: chest wall non-tender, lungs clear, normal breath sounds Abdomen: normal bowel sounds, soft, distended Extremities: normal inspection Edema: 1+ Arm (L), 1+ Arm (R), 1+ Leg (L), 1+ Leg (R), 1+ Pedal (L), 1+ Pedal ( R), 1+ Generalized Edema: trace edema Neurologic: responsive, motor weakness Skin: normal pigmentation, warm/dry Ernesto Nicole DO Jan 24, 2019 07:40
[2019-01-24 08:00] VITALS: BP 126/79
[2019-01-24 08:21] LABS: ANION GAP 3 mmol/L (5-15); BLOOD UREA NITROGEN 18 mg/dL (7-18); CALCIUM 8.6 MG/DL (8.5-10.1); CARBON DIOXIDE 33 MMOL/L (21-32); CHLORIDE 101 MMOL/L (98-107); CREATININE 1.1 MG/DL (0.55-1.30); POTASSIUM 4.7 MMOL/L (3.5-5.1); SODIUM 137 MMOL/L (136-145)
[2019-01-24] MEDS: Heparin 5000 units/ml inj SUBQ SCH ×3 (09:00→21:00)
[2019-01-24] MEDS: Fluconazole 100mg tab ORAL SCH (09:45)
[2019-01-24] MEDS: DULoxetine 30mg cap ORAL SCH (09:46)
[2019-01-24] MEDS: Miconazole 2% Cream 30gm TOPIC SCH ×2 (09:51→18:19)
--- NOTE | 2019-01-24 10:30 | NUR ---
NURSE NOTES: done change of dressing of left lower leg: cleansed with NS, pat dried gently, applied Xeroform, ABDs and kerlix valdo from bottom up. Secured with tape. Right leg JENNIFER. Severe swelling of scrotum, refused ice pack or towel under scrotum.
[2019-01-24 12:00] VITALS: BP 113/66
--- NOTE | 2019-01-24 15:00 | NUR ---
PT note Attempted to see patient fro eval/tx. Patient was not available.
[2019-01-24 16:00] VITALS: BP 109/67
--- NOTE | 2019-01-24 19:49 | NUR ---
HAND-OFF: Report given to Judy.
[2019-01-24 20:00] VITALS: BP 107/67
--- NOTE | 2019-01-24 20:00 | Progress Note ---
DATE: 01/24/2019 SUBJECTIVE: This is a 53-year-old male, rule out CVA. He has a lot of anxiety, depression, mood lability, worsened by stress of his medical illness. DIAGNOSIS: Major depressive disorder, mild, recurrent. PLAN: Treat him with Cymbalta 30 mg a day, Neurontin 100 mg . Provided 20 minutes of of reality-based supportive psychotherapy. Chart was discussed with staff. Seen and assessed in his room. Provided 20 minutes of cognitive behavioral therapy provided to help him identify automatic negative thoughts and convert negative thoughts to more positive thoughts to reduce depression, anxiety, and mood lability. Laney Mcghee M.D. DR: Lois JOB#: [id number] CC:
--- NOTE | 2019-01-24 20:26 | NUR ---
NURSE NOTES: Received report in bed. Patient AAOx4. On room air. IV site intact and patent. Dressing on L leg is dry and intact. Bed in lowest position with call light in reach. Will continue to monitor.
--- NOTE | 2019-01-24 21:30 | NUR ---
NURSE NOTES: Reggie Fraga ordered midnight NPO, consent form. Informed panniculectomy scheduled @1130, 01/25/19. Order carried out and patient signed consent form. Reggie Fraga will visit patient in the morning.
[2019-01-25] VITALS (10 sets, daily range): BP systolic 109–155; BP diastolic 72–96
--- NOTE | 2019-01-25 03:45 | Progress Note ---
DATE: 01/23/2019 PSYCHOTHERAPY CONSULTATION PROGRESS NOTE TREATING ATTENDING PHYSICIAN: Ernesto Nicole D.O. SUBJECTIVE: The patient is a 53-year-old male patient. The patient has a history of bipolar disorder. The patient today has been feeling very helpless. He continues to have severe pain. He states he very hopeless because of the pain that he is experiencing. He states that he is also looking for . He is having less emotions today. MENTAL STATUS EXAMINATION: Alert and oriented to person, place, time, and situation. Mood is anxious. Affect is guarded. Thought process is disorganized. Thought content is linear. He has poor attention and concentration. Fair insight and judgement and impulse control. I ASSESSED THE PATIENT. PROVIDED THE PATIENT WITH: 1. Supportive psychotherapy, which is an approach focused on identifying positive emotions of stress and process the patient's thoughts and feelings of depression and helplessness in session. 2. Provided the patient with cognitive behavioral therapy, which is focused on dealing with problems and emotional lability, . 3. Maintain medication compliance, assist with positive coping skills, stabilizing the thoughts and behavior. Psychotherapy provided to this patient, 20 minutes. This clinician has reviewed the patient's chart. Discussed treatment with treatment team. Liu Jackman PsyD. DR: Ozzy JOB#: [id number] CC:
--- NOTE | 2019-01-25 07:27 | NUR ---
HAND-OFF: Report given to MICAELA Shearer.
--- NOTE | 2019-01-25 08:26 | General Progress Note ---
Assessment/Plan Problem List: (1) Seizures ICD Codes: R56.9 - Unspecified convulsions SNOMED: 78203936 (2) Cerebrovascular accident ICD Codes: I63.9 - Cerebral infarction, unspecified SNOMED: 104208644 (3) Peripheral edema ICD Codes: R60.9 - Edema, unspecified SNOMED: 604849955 (4) Neuropathy ICD Codes: G62.9 - Polyneuropathy, unspecified SNOMED: 070761116 (5) Cellulitis of groin, left ICD Codes: L03.314 - Cellulitis of groin SNOMED: 47494081 (6) Cellulitis ICD Codes: L03.90 - Cellulitis, unspecified SNOMED: 507370826 (7) COPD (chronic obstructive pulmonary disease) ICD Codes: J44.9 - Chronic obstructive pulmonary disease, unspecified SNOMED: 80098541 (8) Morbid obesity ICD Codes: E66.01 - Morbid (severe) obesity due to excess calories SNOMED: 573610891 (9) Abdominal pannus ICD Codes: E65 - Localized adiposity SNOMED: 1413465343813 (10) Abdominal wall cellulitis ICD Codes: L03.311 - Cellulitis of abdominal wall SNOMED: 06590621 (11) UTI (urinary tract infection) ICD Codes: N39.0 - Urinary tract infection, site not specified SNOMED: 64348756 Status: stable, progressing Assessment/Plan: o2 pulm tx abx pt diet cbc bmp am pending pannus surgery Subjective Constitutional: Reports: weakness Allergies: Coded Allergies: ASPIRIN (Verified Allergy, Unknown, 07/14/18) KETOROLAC (Verified Allergy, Unknown, 07/14/18) PENICILLINS (Verified Allergy, Unknown, 12/23/18) tolerated Ancef on 08/2018 All Systems: reviewed and negative except above Subjective sleepy calm Objective Last 24 Hour Vital Signs Date Time Temp Pulse Resp B/P (MAP) Pulse Ox O2 Delivery O2 Flow Rate FiO2 01/25/19 04:00 97.9 86 20 132/73 (92) 92 01/25/19 00:00 98.7 91 18 109/76 (87) 91 01/24/19 21:00 Room Air 01/24/19 20:30 86 20 95 Room Air 21 01/24/19 20:00 98.3 90 20 107/67 (80) 91 01/24/19 18:47 98.4 01/24/19 16:00 99.1 86 19 109/67 (81) 94 01/24/19 14:04 82 18 97 Room Air 21 01/24/19 12:00 98.4 89 19 113/66 (82) 98 01/24/19 09:46 76 126/79 01/24/19 09:00 Room Air Intake and Output 01/24/19 01/25/19 19:00 07:00 Intake Total 1600 ml 15 ml Balance 1600 ml 15 ml Other 1600 ml 15 ml # Bowel Movements 1 Height (Feet): 6 Height (Inches): 0.00 Weight (Pounds): 500 General Appearance: lethargic EENT: normal ENT inspection Neck: normal alignment Cardiovascular: normal peripheral pulses, normal rate, regular rhythm Respiratory/Chest: chest wall non-tender, lungs clear, normal breath sounds Abdomen: normal bowel sounds, soft, distended Extremities: normal inspection Edema: 1+ Arm (L), 1+ Arm (R), 1+ Leg (L), 1+ Leg (R), 1+ Pedal (L), 1+ Pedal ( R), 1+ Generalized Edema: trace edema Neurologic: motor weakness Skin: normal pigmentation, warm/dry Ernesto Nicole DO Jan 25, 2019 08:26
[2019-01-25] MEDS: Fluconazole 100mg tab ORAL SCH ×2 (09:00→16:07)
[2019-01-25] MEDS: Heparin 5000 units/ml inj SUBQ SCH ×2 (09:00→20:20)
[2019-01-25] MEDS: DULoxetine 30mg cap ORAL SCH ×2 (09:00→16:07)
[2019-01-25] MEDS: Miconazole 2% Cream 30gm TOPIC SCH ×2 (10:09→17:54)
[2019-01-25 11:43] LABS: EOSINOPHILS % (AUTO) 5.2 % (0.0-3.0); HEMATOCRIT 33.3 % (42.0-52.0); HEMOGLOBIN 10.6 G/DL (14.2-18.0); LYMPHOCYTES % (AUTO) 25.8 % (20.0-45.0); MEAN CORPUSCULAR VOLUME 95 FL (80-99); MONOCYTES % (AUTO) 8.1 % (1.0-10.0); NEUTROPHILS % (AUTO) 59.9 % (45.0-75.0); PLATELET COUNT 251 K/UL (150-450); RED CELL DISTRIBUTION WIDTH 13.5 % (11.6-14.8); WHITE BLOOD COUNT 6.6 K/UL (4.8-10.8)
[2019-01-25 11:53] LABS: ANION GAP 5 mmol/L (5-15); BLOOD UREA NITROGEN 15 mg/dL (7-18); CALCIUM 8.8 MG/DL (8.5-10.1); CARBON DIOXIDE 32 MMOL/L (21-32); CHLORIDE 103 MMOL/L (98-107); POTASSIUM 4.3 MMOL/L (3.5-5.1); SODIUM 140 MMOL/L (136-145)
[2019-01-25] MEDS ORDERED: Lidocaine 1% 10mg/ml/EPI 0.01mg/ml 50ml INJ ONE (12:16)
[2019-01-25] MEDS ORDERED: Bacitracin 50000 Units Vial ONE (12:16)
[2019-01-25] MEDS ORDERED: LR 1000ml 1,000 ML IVLG SCH (12:17)
--- NOTE | 2019-01-25 12:18 | Anethesia Preoperative Eval ---
Anesthesia Pre-op PMH/ROS General Date of Evaluation: Jan 25, 2019 Time of Evaluation: 13:01 Anesthesiologist: Andre ASA Score: ASA 4 Mallampati Score Class I : Soft palate, uvula, fauces, pillars visible Class II: Soft palate, uvula, fauces visible Class III: Soft palate, base of uvula visible Class IV: Only hard plate visible Mallampati Classification: Class III Surgeon: Armando Diagnosis: Morbid Obesity Surgical Procedure: Panniculectomy Anesthesia History: none Family History: no anesthesia problems Allergies: Coded Allergies: ASPIRIN (Verified Allergy, Unknown, 07/14/18) KETOROLAC (Verified Allergy, Unknown, 07/14/18) PENICILLINS (Verified Allergy, Unknown, 12/23/18) tolerated Ancef on 08/2018 Medications: see eMAR Patient NPO?: Yes NPO Date: Jan 24, 2019 NPO Time: 2358 Past Medical History Cardiovascular: Reports: HTN, other - Rt Hrt Failure Pulmonary: Reports: COPD, ADALBERTO Hematology/Immune: Reports: anemia Other: obesity - Morbid BMI 56 Anesthesia Pre-op Phys. Exam Physician Exam Last Vital Signs Date Time Temp Pulse Resp B/P (MAP) Pulse Ox O2 Delivery O2 Flow Rate FiO2 01/25/19 11:10 87 20 94 Room Air 21 01/25/19 10:09 140/88 01/25/19 08:00 98.5 Constitutional: NAD Neurologic: CN 2-12 intact Cardiovascular: RRR Respiratory: CTA Gastrointestinal: S/NT/ND Airway Exam Mallampati Score: Class III MO: limited ROM: limited Teeth: intact Anesthesia Pre-op A/P Labs Hematology Test 01/25/19 11:20 White Blood Count 6.6 K/UL (4.8-10.8) Red Blood Count 3.50 M/UL (4.70-6.10) L Hemoglobin 10.6 G/DL (14.2-18.0) L Hematocrit 33.3 % (42.0-52.0) L Mean Corpuscular Volume 95 FL (80-99) Mean Corpuscular Hemoglobin 30.3 PG (27.0-31.0) Mean Corpuscular Hemoglobin Concent 31.8 G/DL (32.0-36.0) L Red Cell Distribution Width 13.5 % (11.6-14.8) Platelet Count 251 K/UL (150-450) Mean Platelet Volume 4.8 FL (6.5-10.1) L Neutrophils (%) (Auto) 59.9 % (45.0-75.0) Lymphocytes (%) (Auto) 25.8 % (20.0-45.0) Monocytes (%) (Auto) 8.1 % (1.0-10.0) Eosinophils (%) (Auto) 5.2 % (0.0-3.0) H Basophils (%) (Auto) 1.0 % (0.0-2.0) Chemistry Test 01/25/19 11:20 Sodium Level 140 MMOL/L (136-145) Potassium Level 4.3 MMOL/L (3.5-5.1) Chloride Level 103 MMOL/L (98-107) Carbon Dioxide Level 32 MMOL/L (21-32) Anion Gap 5 mmol/L (5-15) Blood Urea Nitrogen 15 mg/dL (7-18) Creatinine 1.0 MG/DL (0.55-1.30) Estimat Glomerular Filtration Rate > 60 mL/min (>60) Glucose Level 86 MG/DL (74-106) Calcium Level 8.8 MG/DL (8.5-10.1) Risk Assessment & Plan Assessment: ASA 4 Plan: GA, SED, GlideScope Go Status Change Before Surgery: No Pre-Antibiotics Dru Grams Ancef IV Time Given: 13:21 Andrea Powell MD Jan 25, 2019 12:18
[2019-01-25] MEDS ORDERED: Atropine Sulfate 0.4mg/ml inj IVP PRN (12:30)
[2019-01-25] MEDS ORDERED: Midazolam 2mg/2ml Inj IVP PRN (12:30)
[2019-01-25] MEDS ORDERED: Hydromorphone 0.5mg/0.5ml inj IVP PRN (12:30)
[2019-01-25] MEDS ORDERED: Labetalol 5mg/ml 20ml vial IV PRN (12:30)
[2019-01-25] MEDS ORDERED: DiphenhydrAMINE 50mg/ml Inj IVP PRN (12:30)
[2019-01-25] MEDS ORDERED: LORazepam Inj 2mg/ml 1ml IV PRN (12:30)
[2019-01-25] MEDS ORDERED: Sodium Chloride 10ml vial INJ ONE (12:39)
[2019-01-25] MEDS ORDERED: Dexamethasone 4mg/ml vial ONE (12:39)
[2019-01-25] MEDS ORDERED: Propofol 200mg/20ml IV ONE (12:39)
[2019-01-25] MEDS ORDERED: Lidocaine 1% MPF 10mg/ml 5ml ONE (12:39)
[2019-01-25] MEDS ORDERED: fentaNYL 100 mcg/2 mL IV ONE (12:40)
[2019-01-25] MEDS ORDERED: LR 1000ml ONE (13:00)
[2019-01-25] MEDS ORDERED: Neostigmine 1mg/ml 10ml Inj ONE (13:00)
[2019-01-25] MEDS ORDERED: Acetaminophen (Non formulary) 100 ML IV ONE (13:15)
[2019-01-25] MEDS ORDERED: Glycopyrrolate 0.2mg/ml 1ml Vial ONE (14:16)
[2019-01-25] MEDS ORDERED: Flumazenil 0.1mg/ml 5ml Inj IV ONE (14:18)
--- NOTE | 2019-01-25 14:27 | Pre-Procedure Note/Attestation ---
Pre-Procedure Note/Attestation Complete Prior to Procedure Planned Procedure: not applicable Procedure Narrative: Panniculectomy Indications for Procedure Pre-Operative Diagnosis: Panniculus with panniculitis and skin breakdown. Attestation I attest that I discussed the nature of the procedure; its benefits; risks and complications; and alternatives (and the risks and benefits of such alternatives ), prior to the procedure, with the patient (or the patient's legal claim service representative). This was discussed with the patient on the morning of surgery in his hospital room at 745am and again at noon in the preop room 01/25/19. I attest that, if there was a reasonable possibility of needing a blood transfusion, the patient (or the patient's legal claim service representative) was given the [place] [employer] [facility] standardized written summary, pursuant to the [place] [place] Blood Safety Act ([place] Health and Safety Code # 1645, as amended). I attest that I re-evaluated the patient just prior to the surgery and that there has been no change in the patient's H&P, except as documented below: Reggie Roberts MD Jan 25, 2019 14:27
--- NOTE | 2019-01-25 14:37 | Infectious Diseases Prog Note ---
Assessment/Plan Assessment/Plan Abx: IV Vancomycin x1 01/22 Fluconazole 01/22- Assessment: R groin swelling and pain- 2ry from Volume overload Sandy intertrigo B/l Leg cellulitis and panniculitis - in the setting of chronic venous stasis, s /p Rx Active infectious cellulitis essentially resolved. Now he has chronic venous stasis and neuropathic pain with poorly healing wounds. Alot off this is due to the severe swelling in his feet but also he is poorly compliant with wound care instructions. Afebrile No leukocytosis Recent seizure episode -had L side weakness and spasticity CVA HTN bipolar disorder w/ psychotic features tobacco abuse anxiety disorder chronic pain CHF seizure disorder COPD morbid obesity Dm2 HTN SNF resident Plan: - Continue PO Fluconazole #4/5 -Cont Miconazole topical - Needs wound care for healing. - 01/07/19 SP IV Dapto d# 14 - 01/06/19 S/P Levofloxacin #7 - 12/25 sp Bactrim #4/14 and add IV Ancef #3/14 for cellulitis - Monitor CBC/CMP, temperatures - aspiration precautions - wound care per hospital protocol -Uro eval Subjective Allergies: Coded Allergies: ASPIRIN (Verified Allergy, Unknown, 07/14/18) KETOROLAC (Verified Allergy, Unknown, 07/14/18) PENICILLINS (Verified Allergy, Unknown, 12/23/18) tolerated Ancef on 08/2018 Subjective afebrile no leukocytosis Objective Vital Signs Last 24 Hour Vital Signs Date Time Temp Pulse Resp B/P (MAP) Pulse Ox O2 Delivery O2 Flow Rate FiO2 01/25/19 12:00 98.7 89 20 155/96 (115) 94 01/25/19 11:40 98.5 01/25/19 11:10 87 20 94 Room Air 21 01/25/19 10:09 88 140/88 01/25/19 09:00 Room Air 01/25/19 08:00 98.5 88 20 140/88 (105) 94 01/25/19 04:00 97.9 86 20 132/73 (92) 92 01/25/19 00:00 98.7 91 18 109/76 (87) 91 01/24/19 21:00 Room Air 01/24/19 20:30 86 20 95 Room Air 21 01/24/19 20:00 98.3 90 20 107/67 (80) 91 01/24/19 16:00 99.1 86 19 109/67 (81) 94 Height (Feet): 6 Height (Inches): 0.00 Weight (Pounds): 412 Objective General Appearance: alert, moderate distress, obese Head: atraumatic Eyes: bilateral eye normal inspection ENT: normal ENT inspection, hearing grossly normal, normal voice Neck: normal inspection, full range of motion, supple, no bony tend Respiratory: normal inspection, lungs clear, normal breath sounds, no respiratory distress, no retraction, no wheezing Cardiovascular #1: regular rate, rhythm Gastrointestinal: normal inspection, normal bowel sounds, soft, no guarding, no hernia, other - Left lower abdominal area Genitourinary: other - Swollen groin edematous erythematous enlarged scrotum Musculoskeletal: normal inspection, back normal, normal range of motion Neurologic: normal inspection, alert, responsive, speech normal Psychiatric: depressed affect, anxious Skin: normal inspection, normal color, no rash Laboratory Tests Test 01/25/19 11:20 White Blood Count 6.6 K/UL (4.8-10.8) Red Blood Count 3.50 M/UL (4.70-6.10) L Hemoglobin 10.6 G/DL (14.2-18.0) L Hematocrit 33.3 % (42.0-52.0) L Mean Corpuscular Volume 95 FL (80-99) Mean Corpuscular Hemoglobin 30.3 PG (27.0-31.0) Mean Corpuscular Hemoglobin Concent 31.8 G/DL (32.0-36.0) L Red Cell Distribution Width 13.5 % (11.6-14.8) Platelet Count 251 K/UL (150-450) Mean Platelet Volume 4.8 FL (6.5-10.1) L Neutrophils (%) (Auto) 59.9 % (45.0-75.0) Lymphocytes (%) (Auto) 25.8 % (20.0-45.0) Monocytes (%) (Auto) 8.1 % (1.0-10.0) Eosinophils (%) (Auto) 5.2 % (0.0-3.0) H Basophils (%) (Auto) 1.0 % (0.0-2.0) Sodium Level 140 MMOL/L (136-145) Potassium Level 4.3 MMOL/L (3.5-5.1) Chloride Level 103 MMOL/L (98-107) Carbon Dioxide Level 32 MMOL/L (21-32) Anion Gap 5 mmol/L (5-15) Blood Urea Nitrogen 15 mg/dL (7-18) Creatinine 1.0 MG/DL (0.55-1.30) Estimat Glomerular Filtration Rate > 60 mL/min (>60) Glucose Level 86 MG/DL (74-106) Calcium Level 8.8 MG/DL (8.5-10.1) Current Medications Medications (Trade) Dose Ordered Sig/Luis Route PRN Reason Start Time Stop Time Status Last Admin Dose Admin Acetaminophen (Tylenol) 650 mg Q4H PRN ORAL fever 01/22/19 11:00 02/21/19 10:59 Acetaminophen/ Hydrocodone Bitart ([place] 10/325) 1 tab Q6H PRN ORAL mild pain 01/22/19 11:15 01/29/19 10:59 Al Hydroxide/Mg Hydroxide (Mylanta) 15 ml Q1H PRN ORAL gi upset 01/25/19 12:30 01/25/19 21:00 Albuterol/ Ipratropium (Albuterol/ Ipratropium) 3 ml Q4H PRN HHN Shortness of Breath 01/22/19 11:00 01/27/19 10:59 Amlodipine Besylate (Norvasc) 5 mg DAILY ORAL 01/23/19 09:00 02/22/19 08:59 01/25/19 10:09 Atropine Sulfate (Atropine 0.4mg/ ml) 0.5 mg Q5M PRN IVP HR<40 01/25/19 12:30 01/25/19 21:00 Clopidogrel Bisulfate (Plavix) 75 mg DAILY ORAL 01/23/19 09:00 02/22/19 08:59 01/24/19 09:45 Dextrose (Dextrose 50%) 25 ml Q30M PRN IV Hypoglycemia 01/22/19 11:00 02/21/19 10:59 Dextrose (Dextrose 50%) 50 ml Q30M PRN IV hypoglycemia 01/22/19 11:00 02/21/19 10:59 Diphenhydramine HCl (Benadryl) 25 mg Q15M PRN IVP Itching 01/25/19 12:30 01/25/19 21:00 Duloxetine HCl (Cymbalta) 30 mg DAILY ORAL 01/23/19 09:00 02/22/19 08:59 01/24/19 09:46 Fluconazole (Diflucan) 400 mg DAILY ORAL 01/24/19 09:00 01/26/19 23:59 01/24/19 09:45 Furosemide (Lasix) 10 mg Q8HR ORAL 01/22/19 14:00 02/21/19 13:59 01/25/19 05:03 Gabapentin (Neurontin) 900 mg THREE TIMES A DAY ORAL 01/22/19 13:00 02/21/19 12:59 01/24/19 18:17 Heparin Sodium (Porcine) (Heparin 5000 units/ml) 5,000 units EVERY 12 HOURS SUBQ 01/22/19 21:00 02/21/19 20:59 Hydralazine HCl (Apresoline) 5 mg Q30M PRN IV SBP>160 / DBP>90 01/25/19 12:30 01/25/19 18:00 Hydromorphone HCl (Dilaudid) 0.5 mg Q15M PRN IVP Severe Pain (Pain Scale 7-10) 01/25/19 12:30 01/25/19 18:00 Hydromorphone HCl (Dilaudid) 5 mg Q3H PRN IV pain 7-10 01/22/19 11:00 01/29/19 10:59 01/25/19 11:10 Labetalol HCl (Normodyne) 5 mg Q10M PRN IV SBP>160 / DBP>90 01/25/19 12:30 01/25/19 21:00 Levetiracetam (Keppra) 1,000 mg Q8HR ORAL 01/22/19 14:00 02/21/19 13:59 01/25/19 05:01 Lorazepam (Ativan 2mg/ml 1ml) 1 mg Q15M PRN IV For Anxiety 01/25/19 12:30 01/25/19 18:00 Lorazepam (Ativan) 1 mg Q6H PRN ORAL For Anxiety 01/23/19 12:45 01/30/19 12:44 Methadone HCl (Methadone HCl) 20 mg EVERY 8 HOURS ORAL 01/22/19 11:00 01/29/19 10:59 01/25/19 05:02 Miconazole Nitrate (Miconazole Nitrate) 1 applic BID TOPIC 01/22/19 14:00 02/21/19 13:59 01/25/19 10:09 Midazolam HCl (Versed 2mg/2ml vial) 1 mg Q15M PRN IVP For Anxiety 01/25/19 12:30 01/25/19 18:00 Morphine Sulfate (Morphine Sulfate) 2 mg Q4H PRN IVP moderate pain 01/22/19 11:15 01/29/19 10:59 Nitroglycerin (Ntg) 0.4 mg Q5M PRN SL Prn Chest Pain 01/22/19 11:00 02/21/19 10:59 Ondansetron HCl (Zofran) 4 mg Q6H PRN IVP Nausea & Vomiting 01/22/19 11:00 02/21/19 10:59 Polyethylene Glycol (Miralax) 17 gm DAILYPRN PRN ORAL Constipation 01/22/19 11:00 02/21/19 10:59 Temazepam (Restoril) 15 mg HSPRN PRN ORAL Insomnia 01/22/19 11:00 01/29/19 10:59 Alexa Patterson M.D. Jan 25, 2019 14:37
--- NOTE | 2019-01-25 14:50 | Immediate Post-Op Evaluation ---
Immediate Post-Op Evalulation Immediate Post-Op Evalulation Procedure: Panniculectomy Preparation Date of Evaluation: Jan 25, 2019 Time of Evaluation: 14:45 IV Fluids: 400 LR Blood Products: 0 Estimated Blood Loss: 2 Urinary Output: 0 Blood Pressure Systolic: 141 Blood Pressure Diastolic: 72 Pulse Rate: 81 Respiratory Rate: 16 O2 Sat by Pulse Oximetry: 100 Temperature (Fahrenheit): 99.2 Pain Score (1-10): 2 Nausea: No Vomiting: No Complications 0 Patient Status: awake, reacts, patent, extubated, none Dru Grams Ancef IV Given Within 1 Hr of Incision: Yes Time Given: 13:21 Andrea Powell MD Jan 25, 2019 14:50
--- NOTE | 2019-01-25 16:15 | Pulmonology Progress Note ---
Assessment/Plan Problems: (1) Abdominal pannus (2) COPD (chronic obstructive pulmonary disease) (3) ADALBERTO (obstructive sleep apnea) (4) Right heart failure (5) Lumbar spondylosis (6) Morbid obesity Assessment/Plan surgery scheduled for next Friday Needs Urology to put a Pires symptomatic treatment local abx as cream continue lasix Dilaudid and Methadone for pain dvt prophylaxis. Subjective ROS Limited/Unobtainable: No Constitutional: Reports: no symptoms HEENT: Repors: no symptoms Allergies: Coded Allergies: ASPIRIN (Verified Allergy, Unknown, 07/14/18) KETOROLAC (Verified Allergy, Unknown, 07/14/18) PENICILLINS (Verified Allergy, Unknown, 12/23/18) tolerated Ancef on 08/2018 Objective Last 24 Hour Vital Signs Date Time Temp Pulse Resp B/P (MAP) Pulse Ox O2 Delivery O2 Flow Rate FiO2 01/25/19 15:10 98.8 78 15 137/79 98 Nasal Cannula 3 01/25/19 14:54 82 21 140/73 98 Room Air 01/25/19 14:50 81 16 100 01/25/19 14:44 84 20 143/72 100 Room Air 01/25/19 14:39 84 16 136/73 100 Simple Mask 6 01/25/19 14:34 99.0 86 17 135/81 100 Simple Mask 6 01/25/19 12:00 98.7 89 20 155/96 (115) 94 01/25/19 11:40 98.5 01/25/19 11:10 87 20 94 Room Air 21 01/25/19 10:09 88 140/88 01/25/19 09:00 Room Air 01/25/19 08:00 98.5 88 20 140/88 (105) 94 01/25/19 04:00 97.9 86 20 132/73 (92) 92 01/25/19 00:00 98.7 91 18 109/76 (87) 91 01/24/19 21:00 Room Air 01/24/19 20:30 86 20 95 Room Air 21 01/24/19 20:00 98.3 90 20 107/67 (80) 91 Intake and Output 01/24/19 01/25/19 19:00 07:00 Intake Total 1600 ml 15 ml Balance 1600 ml 15 ml Other 1600 ml 15 ml # Bowel Movements 1 General Appearance: WD/WN HEENT: normocephalic Respiratory/Chest: chest wall non-tender, lungs clear Cardiovascular: normal peripheral pulses, normal rate Genitourinary: normal external genitalia Skin: no rash Neurologic/Psychiatric: [facility] II-XII grossly normal, no motor/sensory deficits Laboratory Tests 01/25/19 11:20: White Blood Count 6.6, Red Blood Count 3.50L, Hemoglobin 10.6L, Hematocrit 33.3L , Mean Corpuscular Volume 95, Mean Corpuscular Hemoglobin 30.3, Mean Corpuscular Hemoglobin Concent 31.8L, Red Cell Distribution Width 13.5, Platelet Count 251, Mean Platelet Volume 4.8L, Neutrophils (%) (Auto) 59.9, Lymphocytes (%) (Auto) 25.8, Monocytes (%) (Auto) 8.1, Eosinophils (%) (Auto) 5.2H, Basophils (%) (Auto) 1.0, Sodium Level 140, Potassium Level 4.3, Chloride Level 103, Carbon Dioxide Level 32, Anion Gap 5, Blood Urea Nitrogen 15, Creatinine 1.0, Estimat Glomerular Filtration Rate > 60, Glucose Level 86, Calcium Level 8.8 Current Medications Medications (Trade) Dose Ordered Sig/Luis Route PRN Reason Start Time Stop Time Status Last Admin Dose Admin Acetaminophen (Tylenol) 650 mg Q4H PRN ORAL fever 01/22/19 11:00 02/21/19 10:59 Acetaminophen/ Hydrocodone Bitart ([place] 10/325) 1 tab Q6H PRN ORAL mild pain 01/22/19 11:15 01/29/19 10:59 Al Hydroxide/Mg Hydroxide (Mylanta) 15 ml Q1H PRN ORAL gi upset 01/25/19 12:30 01/25/19 21:00 Albuterol/ Ipratropium (Albuterol/ Ipratropium) 3 ml Q4H PRN HHN Shortness of Breath 01/22/19 11:00 01/27/19 10:59 Amlodipine Besylate (Norvasc) 5 mg DAILY ORAL 01/23/19 09:00 02/22/19 08:59 01/25/19 10:09 Atropine Sulfate (Atropine 0.4mg/ ml) 0.5 mg Q5M PRN IVP HR<40 01/25/19 12:30 01/25/19 21:00 Clopidogrel Bisulfate (Plavix) 75 mg DAILY ORAL 01/23/19 09:00 02/22/19 08:59 01/25/19 16:07 Dextrose (Dextrose 50%) 25 ml Q30M PRN IV Hypoglycemia 01/22/19 11:00 02/21/19 10:59 Dextrose (Dextrose 50%) 50 ml Q30M PRN IV hypoglycemia 01/22/19 11:00 02/21/19 10:59 Diphenhydramine HCl (Benadryl) 25 mg Q15M PRN IVP Itching 01/25/19 12:30 01/25/19 21:00 Duloxetine HCl (Cymbalta) 30 mg DAILY ORAL 01/23/19 09:00 02/22/19 08:59 01/25/19 16:07 Fluconazole (Diflucan) 400 mg DAILY ORAL 01/24/19 09:00 01/26/19 23:59 01/25/19 16:07 Furosemide (Lasix) 10 mg Q8HR ORAL 01/22/19 14:00 02/21/19 13:59 01/25/19 15:50 Gabapentin (Neurontin) 900 mg THREE TIMES A DAY ORAL 01/22/19 13:00 02/21/19 12:59 01/25/19 15:50 Heparin Sodium (Porcine) (Heparin 5000 units/ml) 5,000 units EVERY 12 HOURS SUBQ 01/22/19 21:00 02/21/19 20:59 Hydralazine HCl (Apresoline) 5 mg Q30M PRN IV SBP>160 / DBP>90 01/25/19 12:30 01/25/19 18:00 Hydromorphone HCl (Dilaudid) 0.5 mg Q15M PRN IVP Severe Pain (Pain Scale 7-10) 01/25/19 12:30 01/25/19 18:00 Hydromorphone HCl (Dilaudid) 5 mg Q3H PRN IV pain 7-10 01/22/19 11:00 01/29/19 10:59 01/25/19 15:47 Labetalol HCl (Normodyne) 5 mg Q10M PRN IV SBP>160 / DBP>90 01/25/19 12:30 01/25/19 21:00 Levetiracetam (Keppra) 1,000 mg Q8HR ORAL 01/22/19 14:00 02/21/19 13:59 01/25/19 15:48 Lorazepam (Ativan 2mg/ml 1ml) 1 mg Q15M PRN IV For Anxiety 01/25/19 12:30 01/25/19 18:00 Lorazepam (Ativan) 1 mg Q6H PRN ORAL For Anxiety 01/23/19 12:45 01/30/19 12:44 Methadone HCl (Methadone HCl) 20 mg EVERY 8 HOURS ORAL 01/22/19 11:00 01/29/19 10:59 01/25/19 05:02 Miconazole Nitrate (Miconazole Nitrate) 1 applic BID TOPIC 01/22/19 14:00 02/21/19 13:59 01/25/19 10:09 Midazolam HCl (Versed 2mg/2ml vial) 1 mg Q15M PRN IVP For Anxiety 01/25/19 12:30 01/25/19 18:00 Morphine Sulfate (Morphine Sulfate) 2 mg Q4H PRN IVP moderate pain 01/22/19 11:15 01/29/19 10:59 Nitroglycerin (Ntg) 0.4 mg Q5M PRN SL Prn Chest Pain 01/22/19 11:00 02/21/19 10:59 Ondansetron HCl (Zofran) 4 mg Q6H PRN IVP Nausea & Vomiting 01/22/19 11:00 02/21/19 10:59 Polyethylene Glycol (Miralax) 17 gm DAILYPRN PRN ORAL Constipation 01/22/19 11:00 02/21/19 10:59 Temazepam (Restoril) 15 mg HSPRN PRN ORAL Insomnia 01/22/19 11:00 01/29/19 10:59 Bill Dixon MD Jan 25, 2019 16:15
--- NOTE | 2019-01-25 16:15 | Cardiac Electrophysiology PN ---
Assessment/Plan Assessment/Plan 1. Hypertension. Continue amlodipine 5 mg daily. Change Lasix to 40 mg IV daily ECho EF 60% 2. Severe bilateral lower extremity edema and cellulitis. On IV antibiotic per Dr. Patterson. 3. Abdominal pannus. 4. Chronic obstructive pulmonary disease. 5. Obstructive sleep apnea. 6. Right heart failure. 7. Lumbar spondylosis. 8. Morbid obesity. No further cardiac testing needed prior to Abdominal surgery. Remains at moderate to high risk. JESICA RN Subjective Subjective Surgery postponed to next Friday. No CP or SOB Objective Last 24 Hour Vital Signs Date Time Temp Pulse Resp B/P (MAP) Pulse Ox O2 Delivery O2 Flow Rate FiO2 01/25/19 15:10 98.8 78 15 137/79 98 Nasal Cannula 3 01/25/19 14:54 82 21 140/73 98 Room Air 01/25/19 14:50 81 16 100 01/25/19 14:44 84 20 143/72 100 Room Air 01/25/19 14:39 84 16 136/73 100 Simple Mask 6 01/25/19 14:34 99.0 86 17 135/81 100 Simple Mask 6 01/25/19 12:00 98.7 89 20 155/96 (115) 94 01/25/19 11:40 98.5 01/25/19 11:10 87 20 94 Room Air 21 01/25/19 10:09 88 140/88 01/25/19 09:00 Room Air 01/25/19 08:00 98.5 88 20 140/88 (105) 94 01/25/19 04:00 97.9 86 20 132/73 (92) 92 01/25/19 00:00 98.7 91 18 109/76 (87) 91 01/24/19 21:00 Room Air 01/24/19 20:30 86 20 95 Room Air 21 01/24/19 20:00 98.3 90 20 107/67 (80) 91 Intake and Output 01/24/19 01/25/19 19:00 07:00 Intake Total 1600 ml 15 ml Balance 1600 ml 15 ml Other 1600 ml 15 ml # Bowel Movements 1 Laboratory Tests Test 01/25/19 11:20 White Blood Count 6.6 K/UL (4.8-10.8) Red Blood Count 3.50 M/UL (4.70-6.10) L Hemoglobin 10.6 G/DL (14.2-18.0) L Hematocrit 33.3 % (42.0-52.0) L Mean Corpuscular Volume 95 FL (80-99) Mean Corpuscular Hemoglobin 30.3 PG (27.0-31.0) Mean Corpuscular Hemoglobin Concent 31.8 G/DL (32.0-36.0) L Red Cell Distribution Width 13.5 % (11.6-14.8) Platelet Count 251 K/UL (150-450) Mean Platelet Volume 4.8 FL (6.5-10.1) L Neutrophils (%) (Auto) 59.9 % (45.0-75.0) Lymphocytes (%) (Auto) 25.8 % (20.0-45.0) Monocytes (%) (Auto) 8.1 % (1.0-10.0) Eosinophils (%) (Auto) 5.2 % (0.0-3.0) H Basophils (%) (Auto) 1.0 % (0.0-2.0) Sodium Level 140 MMOL/L (136-145) Potassium Level 4.3 MMOL/L (3.5-5.1) Chloride Level 103 MMOL/L (98-107) Carbon Dioxide Level 32 MMOL/L (21-32) Anion Gap 5 mmol/L (5-15) Blood Urea Nitrogen 15 mg/dL (7-18) Creatinine 1.0 MG/DL (0.55-1.30) Estimat Glomerular Filtration Rate > 60 mL/min (>60) Glucose Level 86 MG/DL (74-106) Calcium Level 8.8 MG/DL (8.5-10.1) Objective HEAD AND NECK: No JVD. LUNGS: Clear. CARDIOVASCULAR: Shows regular S1 and S2 with no gallop or murmur. ABDOMEN: Very swollen, erythematous, and enlarged scrotum. EXTREMITIES: 2+ pitting edema and cellulitis of the legs. Carlos Yee MD Jan 25, 2019 16:15
--- NOTE | 2019-01-25 19:51 | NUR ---
HAND-OFF: Report given to MICAELA Waite.
--- NOTE | 2019-01-25 19:55 | NUR ---
NURSE NOTES: Received report from MICAELA Shearer. Patient A&Ox4. On room air, no signs of distress or labored breathing. IV intact, patent, and saline locked. Bed in lowest position with call light in reach. Will continue with plan of care.
--- NOTE | 2019-01-25 21:46 | General Progress Note ---
Progress Note Progress Note No events. Asked by Dr. Roberts to attempt difficult catheter placement for urine output monitoring and surgery. AFVSS PE- massively, morbidly obese abdomen, NT, ND - PS severe edema unchanged L inguinal rash improved Ext WWP, 3+ LE edema A/P- [address] with some difficulty but with return of clear yellow urine output Keep in place as needed Available prn. Ollie Castorena M.D. Jan 25, 2019 21:46
[2019-01-26] VITALS: BP 136/87
--- NOTE | 2019-01-26 03:15 | NUR ---
HAND-OFF: Report given to MICAELA Cornejo.
[2019-01-26 04:00] VITALS: BP 140/88
--- NOTE | 2019-01-26 07:20 | NUR ---
NURSE NOTES: RN received pt in stable condition, sleeping in bed. No acute distress or SOB. Bed in low, locked position, call light within reach. Will continue plan of care.
--- NOTE | 2019-01-26 07:33 | NUR ---
HAND-OFF: Report given to MICAELA James.
[2019-01-26 08:00] VITALS: BP 142/76
--- NOTE | 2019-01-26 08:23 | NUR ---
P.T Note: Pt underwent surgery on 01/25/19 for Panniculectomy . Hold P.T at this time. Will need MD clearance to proceed with P.T evaluation/tx. Addendum: 01/26/19 at 0848 by LUANN ACEVES PT Correction: surgery was postponed yesterday therefore will resume P.T. evaluation.
--- NOTE | 2019-01-26 08:50 | NUR ---
NURSE NOTES: Pt requested assist in bathroom; needed help wiping. RN noted that pt was bleeding from scrotum. RN applied pressure to site. Charge nurse made aware. RN noted lindsey draining clear yellow to gravity. Pt stated no pain w/ lindsey. RN noted discharge at lindsey site. Will notify .
[2019-01-26] MEDS: Heparin 5000 units/ml inj SUBQ SCH (09:00)
--- NOTE | 2019-01-26 09:00 | NUR ---
NURSE NOTES: Pt has wallet with song at bedside. RN offered to place in safe with any other valuables. RN explained to pt that hospital is not liable for items that go missing at bedside and recommended keeping in hospital safe. Pt verbalized understanding and refused to keep items in safe, stating he will keep with him at bedside.
[2019-01-26] MEDS: DULoxetine 30mg cap ORAL SCH (09:01)
[2019-01-26] MEDS: Fluconazole 100mg tab ORAL SCH (09:01)
[2019-01-26] MEDS: Miconazole 2% Cream 30gm TOPIC SCH ×2 (09:03→18:00)
--- NOTE | 2019-01-26 10:00 | NUR ---
NURSE NOTES: RN informed Dr. Nicole pt is bleeding from testicle; testicle is swollen and tender. No noted abrasion, small sakina noted. RN left message for Dr. Aldana. Awaiting call back.
--- NOTE | 2019-01-26 11:52 | General Progress Note ---
Assessment/Plan Problem List: (1) Seizures ICD Codes: R56.9 - Unspecified convulsions SNOMED: 80193346 (2) Cerebrovascular accident ICD Codes: I63.9 - Cerebral infarction, unspecified SNOMED: 550115012 (3) Peripheral edema ICD Codes: R60.9 - Edema, unspecified SNOMED: 127077019 (4) Neuropathy ICD Codes: G62.9 - Polyneuropathy, unspecified SNOMED: 756352188 (5) Cellulitis of groin, left ICD Codes: L03.314 - Cellulitis of groin SNOMED: 10353291 (6) Cellulitis ICD Codes: L03.90 - Cellulitis, unspecified SNOMED: 298896537 (7) COPD (chronic obstructive pulmonary disease) ICD Codes: J44.9 - Chronic obstructive pulmonary disease, unspecified SNOMED: 43306757 (8) Morbid obesity ICD Codes: E66.01 - Morbid (severe) obesity due to excess calories SNOMED: 091257792 (9) Abdominal pannus ICD Codes: E65 - Localized adiposity SNOMED: 7721847895366 (10) Abdominal wall cellulitis ICD Codes: L03.311 - Cellulitis of abdominal wall SNOMED: 46124444 (11) UTI (urinary tract infection) ICD Codes: N39.0 - Urinary tract infection, site not specified SNOMED: 94110828 Status: stable, progressing Assessment/Plan: o2 pulm tx abx pt diet cbc bmp am pending pannus surgery Subjective Constitutional: Reports: weakness Allergies: Coded Allergies: ASPIRIN (Verified Allergy, Unknown, 07/14/18) KETOROLAC (Verified Allergy, Unknown, 07/14/18) PENICILLINS (Verified Allergy, Unknown, 12/23/18) tolerated Ancef on 08/2018 All Systems: reviewed and negative except above Subjective sleepy calm Objective Last 24 Hour Vital Signs Date Time Temp Pulse Resp B/P (MAP) Pulse Ox O2 Delivery O2 Flow Rate FiO2 01/26/19 09:32 97.9 01/26/19 09:02 87 142/76 01/26/19 09:00 Room Air 01/26/19 08:00 97.9 87 18 142/76 (98) 94 01/26/19 04:00 98.5 96 19 140/88 (105) 95 01/26/19 00:00 98.2 98 19 136/87 (103) 99 01/25/19 21:00 Room Air 01/25/19 20:00 98.0 98 18 138/82 (100) 92 01/25/19 19:34 82 20 95 Room Air 21 01/25/19 15:10 98.8 78 15 137/79 98 Nasal Cannula 3 01/25/19 14:54 82 21 140/73 98 Room Air 01/25/19 14:50 81 16 100 01/25/19 14:44 84 20 143/72 100 Room Air 01/25/19 14:39 84 16 136/73 100 Simple Mask 6 01/25/19 14:34 99.0 86 17 135/81 100 Simple Mask 6 01/25/19 12:00 98.7 89 20 155/96 (115) 94 Intake and Output 01/25/19 01/26/19 19:00 07:00 Intake Total 300 ml Output Total 1500 ml Balance 300 ml -1500 ml IV Total 300 ml Output Urine Total 1500 ml # Voids 2 # Bowel Movements 2 Height (Feet): 6 Height (Inches): 0.00 Weight (Pounds): 412 General Appearance: lethargic EENT: normal ENT inspection Neck: normal alignment Cardiovascular: normal peripheral pulses, normal rate, regular rhythm Respiratory/Chest: chest wall non-tender, lungs clear, normal breath sounds Abdomen: normal bowel sounds, soft, absent bowel sounds Extremities: normal inspection Edema: 1+ Arm (L), 1+ Arm (R), 1+ Leg (L), 1+ Leg (R), 1+ Pedal (L), 1+ Pedal ( R), 1+ Generalized Edema: trace edema Neurologic: motor weakness Skin: normal pigmentation, warm/dry Ernesto Nicole DO Jan 26, 2019 11:52
[2019-01-26 12:00] VITALS: BP 131/72
--- NOTE | 2019-01-26 12:25 | Infectious Diseases Prog Note ---
Assessment/Plan Assessment/Plan Abx: IV Vancomycin x1 01/22 Fluconazole 01/22- Assessment: R groin swelling and pain- 2ry from Volume overload Sandy intertrigo B/l Leg cellulitis and panniculitis - in the setting of chronic venous stasis, s /p Rx Active infectious cellulitis essentially resolved. Now he has chronic venous stasis and neuropathic pain with poorly healing wounds. Alot off this is due to the severe swelling in his feet but also he is poorly compliant with wound care instructions. Afebrile No leukocytosis Recent seizure episode -had L side weakness and spasticity CVA HTN bipolar disorder w/ psychotic features tobacco abuse anxiety disorder chronic pain CHF seizure disorder COPD morbid obesity Dm2 HTN SNF resident Plan: - Continue PO Fluconazole #/ -Cont Miconazole topical - Needs wound care for healing. - 01/07/19 SP IV Dapto d# 14 - 01/06/19 S/P Levofloxacin #7 - 12/25 sp Bactrim #/ and add IV Ancef #3/ for cellulitis - Monitor CBC/CMP, temperatures - aspiration precautions - wound care per hospital protocol -Uro eval Subjective Allergies: Coded Allergies: ASPIRIN (Verified Allergy, Unknown, 07/14/18) KETOROLAC (Verified Allergy, Unknown, 07/14/18) PENICILLINS (Verified Allergy, Unknown, 12/23/18) tolerated Ancef on 08/2018 Subjective afebrile no leukocytosis s/p panniculectomy yesterday Objective Vital Signs Last 24 Hour Vital Signs Date Time Temp Pulse Resp B/P (MAP) Pulse Ox O2 Delivery O2 Flow Rate FiO2 01/26/19 09:32 97.9 01/26/19 09:02 87 142/76 01/26/19 09:00 Room Air 01/26/19 08:00 97.9 87 18 142/76 (98) 94 01/26/19 04:00 98.5 96 19 140/88 (105) 95 01/26/19 00:00 98.2 98 19 136/87 (103) 99 01/25/19 21:00 Room Air 01/25/19 20:00 98.0 98 18 138/82 (100) 92 01/25/19 19:34 82 20 95 Room Air 21 01/25/19 15:10 98.8 78 15 137/79 98 Nasal Cannula 3 01/25/19 14:54 82 21 140/73 98 Room Air 01/25/19 14:50 81 16 100 01/25/19 14:44 84 20 143/72 100 Room Air 01/25/19 14:39 84 16 136/73 100 Simple Mask 6 01/25/19 14:34 99.0 86 17 135/81 100 Simple Mask 6 Height (Feet): 6 Height (Inches): 0.00 Weight (Pounds): 412 Objective General Appearance: alert, moderate distress, obese Head: atraumatic Eyes: bilateral eye normal inspection ENT: normal ENT inspection, hearing grossly normal, normal voice Neck: normal inspection, full range of motion, supple, no bony tend Respiratory: normal inspection, lungs clear, normal breath sounds, no respiratory distress, no retraction, no wheezing Cardiovascular #1: regular rate, rhythm Gastrointestinal: normal inspection, normal bowel sounds, soft, no guarding, no hernia, other - Left lower abdominal area Genitourinary: other - Swollen groin edematous erythematous enlarged scrotum Musculoskeletal: normal inspection, back normal, normal range of motion Neurologic: normal inspection, alert, responsive, speech normal Psychiatric: depressed affect, anxious Skin: normal inspection, normal color, no rash Current Medications Medications (Trade) Dose Ordered Sig/Luis Route PRN Reason Start Time Stop Time Status Last Admin Dose Admin Acetaminophen (Tylenol) 650 mg Q4H PRN ORAL fever 01/22/19 11:00 02/21/19 10:59 Acetaminophen/ Hydrocodone Bitart ([place] 10/325) 1 tab Q6H PRN ORAL mild pain 01/22/19 11:15 01/29/19 10:59 Albuterol/ Ipratropium (Albuterol/ Ipratropium) 3 ml Q4H PRN HHN Shortness of Breath 01/22/19 11:00 01/27/19 10:59 Amlodipine Besylate (Norvasc) 5 mg DAILY ORAL 01/23/19 09:00 02/22/19 08:59 01/26/19 09:02 Clopidogrel Bisulfate (Plavix) 75 mg DAILY ORAL 01/23/19 09:00 02/22/19 08:59 01/26/19 09:01 Dextrose (Dextrose 50%) 25 ml Q30M PRN IV Hypoglycemia 01/22/19 11:00 02/21/19 10:59 Dextrose (Dextrose 50%) 50 ml Q30M PRN IV hypoglycemia 01/22/19 11:00 02/21/19 10:59 Duloxetine HCl (Cymbalta) 30 mg DAILY ORAL 01/23/19 09:00 02/22/19 08:59 01/26/19 09:01 Fluconazole (Diflucan) 400 mg DAILY ORAL 01/24/19 09:00 01/26/19 23:59 01/26/19 09:01 Furosemide (Lasix) 40 mg DAILY IV 01/26/19 09:00 02/25/19 08:59 01/26/19 09:02 Gabapentin (Neurontin) 900 mg THREE TIMES A DAY ORAL 01/22/19 13:00 02/21/19 12:59 01/26/19 09:01 Heparin Sodium (Porcine) (Heparin 5000 units/ml) 5,000 units EVERY 12 HOURS SUBQ 01/22/19 21:00 02/21/19 20:59 Hydromorphone HCl (Dilaudid) 5 mg Q3H PRN IV pain 7-01/22/19 11:00 01/29/19 10:59 01/26/19 09:02 Levetiracetam (Keppra) 1,000 mg Q8HR ORAL 01/22/19 14:00 02/21/19 13:59 01/26/19 06:05 Lorazepam (Ativan) 1 mg Q6H PRN ORAL For Anxiety 01/23/19 12:45 01/30/19 12:44 Methadone HCl (Methadone HCl) 20 mg EVERY 8 HOURS ORAL 01/22/19 11:00 01/29/19 10:59 01/26/19 05:23 Miconazole Nitrate (Miconazole Nitrate) 1 applic BID TOPIC 01/22/19 14:00 02/21/19 13:59 01/26/19 09:03 Morphine Sulfate (Morphine Sulfate) 2 mg Q4H PRN IVP moderate pain 01/22/19 11:15 01/29/19 10:59 Nitroglycerin (Ntg) 0.4 mg Q5M PRN SL Prn Chest Pain 01/22/19 11:00 02/21/19 10:59 Ondansetron HCl (Zofran) 4 mg Q6H PRN IVP Nausea & Vomiting 01/22/19 11:00 02/21/19 10:59 Polyethylene Glycol (Miralax) 17 gm DAILYPRN PRN ORAL Constipation 01/22/19 11:00 02/21/19 10:59 Temazepam (Restoril) 15 mg HSPRN PRN ORAL Insomnia 01/22/19 11:00 01/29/19 10:59 Alexa Patterson M.D. Jan 26, 2019 12:25
--- NOTE | 2019-01-26 12:45 | NUR ---
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
[2019-01-26 12:50] LABS: BASOPHILS % (AUTO) 1.1 % (0.0-2.0); EOSINOPHILS % (AUTO) 5.8 % (0.0-3.0); HEMATOCRIT 33.7 % (42.0-52.0); HEMOGLOBIN 10.5 G/DL (14.2-18.0); LYMPHOCYTES % (AUTO) 22.5 % (20.0-45.0); MEAN CORPUSCULAR VOLUME 95 FL (80-99); MONOCYTES % (AUTO) 7.9 % (1.0-10.0); NEUTROPHILS % (AUTO) 62.7 % (45.0-75.0); PLATELET COUNT 280 K/UL (150-450); RED BLOOD COUNT 3.53 M/UL (4.70-6.10)
[2019-01-26 12:51] LABS: ANION GAP 6 mmol/L (5-15); BLOOD UREA NITROGEN 18 mg/dL (7-18); CALCIUM 8.5 MG/DL (8.5-10.1); CARBON DIOXIDE 33 MMOL/L (21-32); CHLORIDE 101 MMOL/L (98-107); CREATININE 1.1 MG/DL (0.55-1.30); POTASSIUM 4.3 MMOL/L (3.5-5.1); SODIUM 140 MMOL/L (136-145)
--- NOTE | 2019-01-26 14:19 | Pulmonology Progress Note ---
Assessment/Plan Problems: (1) Abdominal pannus (2) COPD (chronic obstructive pulmonary disease) (3) ADALBERTO (obstructive sleep apnea) (4) Right heart failure (5) Lumbar spondylosis (6) Morbid obesity Assessment/Plan surgery scheduled for next Friday Needs Urology to put a Pires dc plavix and heparin sq symptomatic treatment local abx as cream continue lasix Dilaudid and Methadone for pain dvt prophylaxis. Subjective ROS Limited/Unobtainable: No Interval Events: slight bleeding from the scrotum Allergies: Coded Allergies: ASPIRIN (Verified Allergy, Unknown, 07/14/18) KETOROLAC (Verified Allergy, Unknown, 07/14/18) PENICILLINS (Verified Allergy, Unknown, 12/23/18) tolerated Ancef on 08/2018 Objective Last 24 Hour Vital Signs Date Time Temp Pulse Resp B/P (MAP) Pulse Ox O2 Delivery O2 Flow Rate FiO2 01/26/19 13:12 97.9 01/26/19 12:00 97.8 87 20 131/72 (91) 93 01/26/19 09:02 87 142/76 01/26/19 09:00 Room Air 01/26/19 08:00 97.9 87 18 142/76 (98) 94 01/26/19 04:00 98.5 96 19 140/88 (105) 95 01/26/19 00:00 98.2 98 19 136/87 (103) 99 01/25/19 21:00 Room Air 01/25/19 20:00 98.0 98 18 138/82 (100) 92 01/25/19 19:34 82 20 95 Room Air 21 01/25/19 15:10 98.8 78 15 137/79 98 Nasal Cannula 3 01/25/19 14:54 82 21 140/73 98 Room Air 01/25/19 14:50 81 16 100 01/25/19 14:44 84 20 143/72 100 Room Air 01/25/19 14:39 84 16 136/73 100 Simple Mask 6 01/25/19 14:34 99.0 86 17 135/81 100 Simple Mask 6 Intake and Output 01/25/19 01/26/19 19:00 07:00 Intake Total 300 ml Output Total 1500 ml Balance 300 ml -1500 ml IV Total 300 ml Output Urine Total 1500 ml # Voids 2 # Bowel Movements 2 General Appearance: WD/WN HEENT: atraumatic, mucous membranes moist Respiratory/Chest: chest wall non-tender, lungs clear Cardiovascular: normal peripheral pulses, regular rhythm Abdomen: normal bowel sounds, no organomegaly Skin: no rash Laboratory Tests 01/26/19 12:20: White Blood Count 8.0, Red Blood Count 3.53L, Hemoglobin 10.5L, Hematocrit 33.7L , Mean Corpuscular Volume 95, Mean Corpuscular Hemoglobin 29.8, Mean Corpuscular Hemoglobin Concent 31.2L, Red Cell Distribution Width 14.0, Platelet Count 280, Mean Platelet Volume 4.8L, Neutrophils (%) (Auto) 62.7, Lymphocytes (%) (Auto) 22.5, Monocytes (%) (Auto) 7.9, Eosinophils (%) (Auto) 5.8H, Basophils (%) (Auto) 1.1, Sodium Level 140, Potassium Level 4.3, Chloride Level 101, Carbon Dioxide Level 33H, Anion Gap 6, Blood Urea Nitrogen 18, Creatinine 1.1, Estimat Glomerular Filtration Rate > 60, Glucose Level 117H, Calcium Level 8.5 Current Medications Medications (Trade) Dose Ordered Sig/Luis Route PRN Reason Start Time Stop Time Status Last Admin Dose Admin Acetaminophen (Tylenol) 650 mg Q4H PRN ORAL fever 01/22/19 11:00 02/21/19 10:59 Acetaminophen/ Hydrocodone Bitart ([place] 10/325) 1 tab Q6H PRN ORAL mild pain 01/22/19 11:15 01/29/19 10:59 Albuterol/ Ipratropium (Albuterol/ Ipratropium) 3 ml Q4H PRN HHN Shortness of Breath 01/22/19 11:00 01/27/19 10:59 Amlodipine Besylate (Norvasc) 5 mg DAILY ORAL 01/23/19 09:00 02/22/19 08:59 01/26/19 09:02 Clopidogrel Bisulfate (Plavix) 75 mg DAILY ORAL 01/23/19 09:00 02/22/19 08:59 01/26/19 09:01 Dextrose (Dextrose 50%) 25 ml Q30M PRN IV Hypoglycemia 01/22/19 11:00 02/21/19 10:59 Dextrose (Dextrose 50%) 50 ml Q30M PRN IV hypoglycemia 01/22/19 11:00 02/21/19 10:59 Duloxetine HCl (Cymbalta) 30 mg DAILY ORAL 01/23/19 09:00 02/22/19 08:59 01/26/19 09:01 Fluconazole (Diflucan) 400 mg DAILY ORAL 01/24/19 09:00 01/26/19 23:59 01/26/19 09:01 Furosemide (Lasix) 40 mg DAILY IV 01/26/19 09:00 02/25/19 08:59 01/26/19 09:02 Gabapentin (Neurontin) 900 mg THREE TIMES A DAY ORAL 01/22/19 13:00 02/21/19 12:59 01/26/19 12:41 Heparin Sodium (Porcine) (Heparin 5000 units/ml) 5,000 units EVERY 12 HOURS SUBQ 01/22/19 21:00 02/21/19 20:59 Hydromorphone HCl (Dilaudid) 5 mg Q3H PRN IV pain 7-10 01/22/19 11:00 01/29/19 10:59 01/26/19 12:42 Levetiracetam (Keppra) 1,000 mg Q8HR ORAL 01/22/19 14:00 02/21/19 13:59 01/26/19 06:05 Lorazepam (Ativan) 1 mg Q6H PRN ORAL For Anxiety 01/23/19 12:45 01/30/19 12:44 Methadone HCl (Methadone HCl) 20 mg EVERY 8 HOURS ORAL 01/22/19 11:00 01/29/19 10:59 01/26/19 05:23 Miconazole Nitrate (Miconazole Nitrate) 1 applic BID TOPIC 01/22/19 14:00 02/21/19 13:59 01/26/19 09:03 Morphine Sulfate (Morphine Sulfate) 2 mg Q4H PRN IVP moderate pain 01/22/19 11:15 01/29/19 10:59 Nitroglycerin (Ntg) 0.4 mg Q5M PRN SL Prn Chest Pain 01/22/19 11:00 02/21/19 10:59 Ondansetron HCl (Zofran) 4 mg Q6H PRN IVP Nausea & Vomiting 01/22/19 11:00 02/21/19 10:59 Polyethylene Glycol (Miralax) 17 gm DAILYPRN PRN ORAL Constipation 01/22/19 11:00 02/21/19 10:59 Temazepam (Restoril) 15 mg HSPRN PRN ORAL Insomnia 01/22/19 11:00 01/29/19 10:59 Bill Dixon MD Jan 26, 2019 14:19
--- NOTE | 2019-01-26 14:20 | NUR ---
NURSE NOTES: Dr. Dixon notified pt bleeding from small testicle would; likely from swelling and sheering in bed. Heparin and Plavix d/c'd.
--- NOTE | 2019-01-26 14:40 | NUR ---
P.T NOTE: P.T EVALUATION ATTEMPTED HOWEVER PATIENT DECLINED TO PARTICIPATE DUE TO BLEEDING IN THE [employer] INSERTION. PATIENT REQUESTED TO BE SEEN TOMORROW. WILL RE ATTEMPT TOMORROW.
--- NOTE | 2019-01-26 15:01 | Cardiology Report ---
APPROVED REPORT EXAM: Two-dimensional and M-mode echocardiogram with Doppler and color Doppler. INDICATION Congestive Heart Failure M-Mode DIMENSIONS IVSd1.0 (0.7-1.1cm)Left Atrium (MM)4.6 (1.6-4.0cm) LVDd6.2 (3.5-5.6cm)Aortic Root2.3 (2.0-3.7cm) PWd1.0 (0.7-1.1cm)Aortic Cusp Exc.2.2 (1.5-2.0cm) IVSs1.4 cm LVDs3.7 (2.5-4.0cm) PWs1.7 cm Other Information Technically limited study due to body habitus. Mild left ventricular enlargement . Technically difficult study. Study quality precludes accurate assessment of regional wall motion. Left ventricular ejection fraction estimated to be 45-50%. Mild left ventricular hypertrophy by 2-D. Anterior Echo-free space, may be due to pericardial fat or effusion. All other cardiac chamber sizes are within normal limits. Aortic valve calcification with normal cusp excursion . Mildly thickened mitral valve leaflets with normal excursion. Mild mitral annulus and aortic root calcification. Pulmonic valve not well visualized. IVC at normal size with physiologic collapse . A color flow and spectral Doppler study was performed and revealed: Trace aortic insufficiency . Mitral diastolic velocities suggest reduced left ventricular relaxation c/w mild LV diastolic dysfunction (Grade I ). Trace mitral regurgitation. Mild tricuspid regurgitation. Tricuspid systolic velocities suggests peak right ventricular systolic pressure of 10mmHg.
[2019-01-26 16:00] VITALS: BP 113/58
--- NOTE | 2019-01-26 19:00 | NUR ---
HAND-OFF: Report given to MICAELA Wright.
--- NOTE | 2019-01-26 19:34 | Cardiac Electrophysiology PN ---
Assessment/Plan Assessment/Plan 1. Hypertension. Continue amlodipine 5 mg daily and Lasix 40 mg IV daily. EF 60% 2. Severe bilateral lower extremity edema and cellulitis. On IV antibiotic per Dr. Patterson. 3. Abdominal pannus. 4. Chronic obstructive pulmonary disease. 5. Obstructive sleep apnea. 6. Right heart failure. 7. Lumbar spondylosis. 8. Morbid obesity. No further cardiac testing needed prior to Abdominal surgery. Remains at moderate to high risk. DW RN Subjective Subjective Surgery postponed to Friday. No CP or SOB. Plavix DCed Objective Last 24 Hour Vital Signs Date Time Temp Pulse Resp B/P (MAP) Pulse Ox O2 Delivery O2 Flow Rate FiO2 01/26/19 17:54 97.6 01/26/19 16:00 97.6 83 18 113/58 (76) 94 01/26/19 12:00 97.8 87 20 131/72 (91) 93 01/26/19 09:02 87 142/76 01/26/19 09:00 Room Air 01/26/19 08:00 97.9 87 18 142/76 (98) 94 01/26/19 07:00 89 18 94 Room Air 21 01/26/19 04:00 98.5 96 19 140/88 (105) 95 01/26/19 00:00 98.2 98 19 136/87 (103) 99 01/25/19 21:00 Room Air 01/25/19 20:00 98.0 98 18 138/82 (100) 92 01/25/19 19:34 82 20 95 Room Air 21 Intake and Output 01/25/19 01/26/19 19:00 07:00 Intake Total 300 ml Output Total 1500 ml Balance 300 ml -1500 ml IV Total 300 ml Output Urine Total 1500 ml # Voids 2 # Bowel Movements 2 Laboratory Tests Test 01/26/19 12:20 White Blood Count 8.0 K/UL (4.8-10.8) Red Blood Count 3.53 M/UL (4.70-6.10) L Hemoglobin 10.5 G/DL (14.2-18.0) L Hematocrit 33.7 % (42.0-52.0) L Mean Corpuscular Volume 95 FL (80-99) Mean Corpuscular Hemoglobin 29.8 PG (27.0-31.0) Mean Corpuscular Hemoglobin Concent 31.2 G/DL (32.0-36.0) L Red Cell Distribution Width 14.0 % (11.6-14.8) Platelet Count 280 K/UL (150-450) Mean Platelet Volume 4.8 FL (6.5-10.1) L Neutrophils (%) (Auto) 62.7 % (45.0-75.0) Lymphocytes (%) (Auto) 22.5 % (20.0-45.0) Monocytes (%) (Auto) 7.9 % (1.0-10.0) Eosinophils (%) (Auto) 5.8 % (0.0-3.0) H Basophils (%) (Auto) 1.1 % (0.0-2.0) Sodium Level 140 MMOL/L (136-145) Potassium Level 4.3 MMOL/L (3.5-5.1) Chloride Level 101 MMOL/L (98-107) Carbon Dioxide Level 33 MMOL/L (21-32) H Anion Gap 6 mmol/L (5-15) Blood Urea Nitrogen 18 mg/dL (7-18) Creatinine 1.1 MG/DL (0.55-1.30) Estimat Glomerular Filtration Rate > 60 mL/min (>60) Glucose Level 117 MG/DL (74-106) H Calcium Level 8.5 MG/DL (8.5-10.1) Objective HEAD AND NECK: No JVD. LUNGS: Clear. CARDIOVASCULAR: Regular S1 and S2 with no gallop or murmur. ABDOMEN: Very swollen, erythematous, and enlarged scrotum. EXTREMITIES: 2+ pitting edema and cellulitis of the legs. Carlos Yee MD Jan 26, 2019 19:34
[2019-01-26 20:00] VITALS: BP 127/68
[2019-01-27] VITALS: BP 132/73
[2019-01-27 03:57] VITALS: BP 136/74
[2019-01-27 05:12] LABS: BASOPHILS % (AUTO) 1.7 % (0.0-2.0); EOSINOPHILS % (AUTO) 5.3 % (0.0-3.0); HEMOGLOBIN 10.8 G/DL (14.2-18.0); LYMPHOCYTES % (AUTO) 26.9 % (20.0-45.0); MEAN CORPUSCULAR VOLUME 96 FL (80-99); NEUTROPHILS % (AUTO) 59.1 % (45.0-75.0); PLATELET COUNT 301 K/UL (150-450); RED BLOOD COUNT 3.55 M/UL (4.70-6.10); RED CELL DISTRIBUTION WIDTH 14.2 % (11.6-14.8); WHITE BLOOD COUNT 7.9 K/UL (4.8-10.8)
[2019-01-27 05:19] LABS: ANION GAP 11 mmol/L (5-15); BLOOD UREA NITROGEN 18 mg/dL (7-18); CALCIUM 8.9 MG/DL (8.5-10.1); CARBON DIOXIDE 27 MMOL/L (21-32); CHLORIDE 103 MMOL/L (98-107); CREATININE 1.1 MG/DL (0.55-1.30); POTASSIUM 4.7 MMOL/L (3.5-5.1); SODIUM 141 MMOL/L (136-145)
--- NOTE | 2019-01-27 07:08 | NUR ---
HAND-OFF: Report given to Forrest Guzman RN.
[2019-01-27 08:00] VITALS: BP 147/87
[2019-01-27] MEDS ORDERED: Heparin1,000 units/500ml Premix(Conc:2 units/ml) IV PRN (08:00)
--- NOTE | 2019-01-27 08:01 | NUR ---
NURSE NOTES: PT AXOX4, CALM, RESTING IN BED. STATES EXTREME PAIN OF LOWER EXTREMITIES. RN EDUCATED PT ON AVAILABLE PRN PAIN MEDICATIONS AND SCHEDULE. RN EXPLAINED TO PT, DR JENKINS'S ORDER FOR PICC LINE. PT AGREED TO PROCEDURE AND SIGNED CONSENT. SPOKE TO ED IN RADIOLOGY AND STATES IT WILL BE LATER THIS AFTERNOON. PT REFUSED TO HAVE SIDERAILS PADDED. PT STATES "HONEY, IT'S MORE AGGRAVATING TO HAVE THEM ON". RN EDUCATED PT ON SAFETY PRECAUTIONS DURING SEIZURES. PT CONTINUED TO REFUSE. CALL LIGHT WITHIN REACH. BED IN LOWEST POSITION WITH BEDSIDE RAILS X2. WILL CONTINUE TO MONITOR.
[2019-01-27] MEDS: DULoxetine 30mg cap ORAL SCH (08:23)
[2019-01-27] MEDS: Miconazole 2% Cream 30gm TOPIC SCH ×2 (08:26→18:24)
--- NOTE | 2019-01-27 08:39 | General Progress Note ---
Assessment/Plan Problem List: (1) Seizures ICD Codes: R56.9 - Unspecified convulsions SNOMED: 41655761 (2) Cerebrovascular accident ICD Codes: I63.9 - Cerebral infarction, unspecified SNOMED: 156006405 (3) Peripheral edema ICD Codes: R60.9 - Edema, unspecified SNOMED: 138038288 (4) Neuropathy ICD Codes: G62.9 - Polyneuropathy, unspecified SNOMED: 200139299 (5) Cellulitis of groin, left ICD Codes: L03.314 - Cellulitis of groin SNOMED: 96125914 (6) Cellulitis ICD Codes: L03.90 - Cellulitis, unspecified SNOMED: 818187302 (7) COPD (chronic obstructive pulmonary disease) ICD Codes: J44.9 - Chronic obstructive pulmonary disease, unspecified SNOMED: 94622825 (8) Morbid obesity ICD Codes: E66.01 - Morbid (severe) obesity due to excess calories SNOMED: 240323204 (9) Abdominal pannus ICD Codes: E65 - Localized adiposity SNOMED: 3282202595092 (10) Abdominal wall cellulitis ICD Codes: L03.311 - Cellulitis of abdominal wall SNOMED: 35799124 (11) UTI (urinary tract infection) ICD Codes: N39.0 - Urinary tract infection, site not specified SNOMED: 94960189 Status: stable, progressing Assessment/Plan: o2 pulm tx abx pt diet cbc bmp am pending pannus surgery Subjective Constitutional: Reports: weakness Allergies: Coded Allergies: ASPIRIN (Verified Allergy, Unknown, 07/14/18) KETOROLAC (Verified Allergy, Unknown, 07/14/18) PENICILLINS (Verified Allergy, Unknown, 12/23/18) tolerated Ancef on 08/2018 All Systems: reviewed and negative except above Subjective sleepy calm Objective Last 24 Hour Vital Signs Date Time Temp Pulse Resp B/P (MAP) Pulse Ox O2 Delivery O2 Flow Rate FiO2 01/27/19 08:24 93 147/87 01/27/19 08:00 98.6 93 20 147/87 (107) 95 01/27/19 06:41 74 18 95 Room Air 21 01/27/19 04:08 98.6 01/27/19 03:57 98.6 87 20 136/74 (94) 93 01/27/19 00:00 99.1 87 20 132/73 (92) 95 01/26/19 21:00 Room Air 01/26/19 20:00 98.3 76 18 127/68 (87) 94 01/26/19 19:44 84 20 93 Room Air 21 01/26/19 16:00 97.6 83 18 113/58 (76) 94 01/26/19 12:00 97.8 87 20 131/72 (91) 93 01/26/19 09:02 87 142/76 01/26/19 09:00 Room Air Intake and Output 01/26/19 01/27/19 19:00 07:00 Intake Total 720 ml 1200 ml Output Total 3500 ml 1200 ml Balance -2780 ml 0 ml Intake Oral 720 ml 1200 ml Output Urine Total 3500 ml 1200 ml # Bowel Movements 2 2 Laboratory Tests 01/26/19 12:20: White Blood Count 8.0, Red Blood Count 3.53L, Hemoglobin 10.5L, Hematocrit 33.7L , Mean Corpuscular Volume 95, Mean Corpuscular Hemoglobin 29.8, Mean Corpuscular Hemoglobin Concent 31.2L, Red Cell Distribution Width 14.0, Platelet Count 280, Mean Platelet Volume 4.8L, Neutrophils (%) (Auto) 62.7, Lymphocytes (%) (Auto) 22.5, Monocytes (%) (Auto) 7.9, Eosinophils (%) (Auto) 5.8H, Basophils (%) (Auto) 1.1, Sodium Level 140, Potassium Level 4.3, Chloride Level 101, Carbon Dioxide Level 33H, Anion Gap 6, Blood Urea Nitrogen 18, Creatinine 1.1, Estimat Glomerular Filtration Rate > 60, Glucose Level 117H, Calcium Level 8.5 01/27/19 05:00: White Blood Count 7.9, Red Blood Count 3.55L, Hemoglobin 10.8L, Hematocrit 34.0L , Mean Corpuscular Volume 96, Mean Corpuscular Hemoglobin 30.3, Mean Corpuscular Hemoglobin Concent 31.7L, Red Cell Distribution Width 14.2, Platelet Count 301, Mean Platelet Volume 4.6L, Neutrophils (%) (Auto) 59.1, Lymphocytes (%) (Auto) 26.9, Monocytes (%) (Auto) 7.0, Eosinophils (%) (Auto) 5.3H, Basophils (%) (Auto) 1.7, Sodium Level 141, Potassium Level 4.7, Chloride Level 103, Carbon Dioxide Level 27, Anion Gap 11, Blood Urea Nitrogen 18, Creatinine 1.1, Estimat Glomerular Filtration Rate > 60, Glucose Level 97, Calcium Level 8.9 Height (Feet): 6 Height (Inches): 0.00 Weight (Pounds): 412 General Appearance: lethargic EENT: normal ENT inspection Neck: normal alignment Cardiovascular: normal peripheral pulses, normal rate, regular rhythm Respiratory/Chest: chest wall non-tender, lungs clear, normal breath sounds Abdomen: normal bowel sounds, soft, distended Extremities: normal inspection Edema: 1+ Arm (L), 1+ Arm (R), 1+ Leg (L), 1+ Leg (R), 1+ Pedal (L), 1+ Pedal ( R), 1+ Generalized Edema: trace edema Neurologic: motor weakness Skin: normal pigmentation, warm/dry Ernesto Nicole DO Jan 27, 2019 08:39
--- NOTE | 2019-01-27 11:26 | NUR ---
[employer] SI:CELLULITIS VS: BP 147/87, P 93, T 98.6, RR 20, SpO2 93 RBC 3.55, H&H 10.8/34.0 IS:DILAUDID 5mg IV NORVASC 5mg GABAPENTIN 900mg CYMBALTA 30mg LASIX 40mg IV KEPPRA 1000mg METHADONE 20mg MED/SURG STATUS
--- NOTE | 2019-01-27 11:58 | NUR ---
RD ASSESSMENT & RECOMMENDATIONS SEE CARE ACTIVITY FOR COMPLETE ASSESSMENT DAILY ESTIMATED NEEDS: Needs based on obesity, pulmonary, 107kg abw 15-20 kcals/kg 0419-8274 total kcals 1-1.5 g protein/kg 107-161 g total protein 15-25ml/kcal mL/kg 8112-3709 total fluid mLs NUTRITION DIAGNOSIS: Decreased sodium and fat intake needs R/T cardiac h/o and morbid obesity as evidenced by h/o CHF, CVA, w/ BMI>50, @230% of [place] Body Weight. CURRENT DIET:Regular PO DIET RECOMMENDATIONS: REC DIET CHANGE TO -> CARDIAC ADDITIONAL RECOMMENDATIONS: * Obtain a standing weight or calibrated bedscale wt for accurate CBW * Diet change to Cardiac * Monitor for readiness for diet ed * Monitor lytes closely while on diuretics, replete as needed .
[2019-01-27 12:00] VITALS: BP 129/72
--- NOTE | 2019-01-27 13:15 | Pulmonology Progress Note ---
Assessment/Plan Problems: (1) Abdominal pannus (2) COPD (chronic obstructive pulmonary disease) (3) ADALBERTO (obstructive sleep apnea) (4) Right heart failure (5) Lumbar spondylosis (6) Morbid obesity Assessment/Plan surgery scheduled for next Friday Urology put a Pires dc plavix and heparin sq bleeding from scrotum stopped symptomatic treatment local abx as cream continue lasix Dilaudid and Methadone for pain dvt prophylaxis. Subjective ROS Limited/Unobtainable: No Constitutional: Reports: no symptoms HEENT: Repors: no symptoms Respiratory: Reports: no symptoms Allergies: Coded Allergies: ASPIRIN (Verified Allergy, Unknown, 07/14/18) KETOROLAC (Verified Allergy, Unknown, 07/14/18) PENICILLINS (Verified Allergy, Unknown, 12/23/18) tolerated Ancef on 08/2018 Objective Last 24 Hour Vital Signs Date Time Temp Pulse Resp B/P (MAP) Pulse Ox O2 Delivery O2 Flow Rate FiO2 01/27/19 12:00 98.6 84 20 129/72 (91) 95 01/27/19 09:00 Room Air 01/27/19 08:24 93 147/87 01/27/19 08:00 98.6 93 20 147/87 (107) 95 01/27/19 06:41 74 18 95 Room Air 21 01/27/19 04:08 98.6 01/27/19 03:57 98.6 87 20 136/74 (94) 93 01/27/19 00:00 99.1 87 20 132/73 (92) 95 01/26/19 21:00 Room Air 01/26/19 20:00 98.3 76 18 127/68 (87) 94 01/26/19 19:44 84 20 93 Room Air 21 01/26/19 16:00 97.6 83 18 113/58 (76) 94 Intake and Output 01/26/19 01/27/19 19:00 07:00 Intake Total 720 ml 1200 ml Output Total 3500 ml 1200 ml Balance -2780 ml 0 ml Intake Oral 720 ml 1200 ml Output Urine Total 3500 ml 1200 ml # Bowel Movements 2 2 General Appearance: WD/WN HEENT: normocephalic, atraumatic Respiratory/Chest: chest wall non-tender, lungs clear Cardiovascular: normal peripheral pulses, normal rate Abdomen: soft, non tender, no organomegaly Extremities: no cyanosis Skin: no rash, no lesions Laboratory Tests 01/27/19 05:00: White Blood Count 7.9, Red Blood Count 3.55L, Hemoglobin 10.8L, Hematocrit 34.0L , Mean Corpuscular Volume 96, Mean Corpuscular Hemoglobin 30.3, Mean Corpuscular Hemoglobin Concent 31.7L, Red Cell Distribution Width 14.2, Platelet Count 301, Mean Platelet Volume 4.6L, Neutrophils (%) (Auto) 59.1, Lymphocytes (%) (Auto) 26.9, Monocytes (%) (Auto) 7.0, Eosinophils (%) (Auto) 5.3H, Basophils (%) (Auto) 1.7, Sodium Level 141, Potassium Level 4.7, Chloride Level 103, Carbon Dioxide Level 27, Anion Gap 11, Blood Urea Nitrogen 18, Creatinine 1.1, Estimat Glomerular Filtration Rate > 60, Glucose Level 97, Calcium Level 8.9 Current Medications Medications (Trade) Dose Ordered Sig/Luis Route PRN Reason Start Time Stop Time Status Last Admin Dose Admin Acetaminophen (Tylenol) 650 mg Q4H PRN ORAL fever 01/22/19 11:00 02/21/19 10:59 Acetaminophen/ Hydrocodone Bitart ([place] 10/325) 1 tab Q6H PRN ORAL mild pain 01/22/19 11:15 01/29/19 10:59 Amlodipine Besylate (Norvasc) 5 mg DAILY ORAL 01/23/19 09:00 02/22/19 08:59 01/27/19 08:24 Chlorhexidine Gluconate (Ruby-Hex 2%) 1 applic DAILY@1999 TOPIC 01/27/19 20:00 02/26/19 19:59 Dextrose (Dextrose 50%) 25 ml Q30M PRN IV Hypoglycemia 01/22/19 11:00 02/21/19 10:59 Dextrose (Dextrose 50%) 50 ml Q30M PRN IV hypoglycemia 01/22/19 11:00 02/21/19 10:59 Duloxetine HCl (Cymbalta) 30 mg DAILY ORAL 01/23/19 09:00 02/22/19 08:59 01/27/19 08:23 Furosemide (Lasix) 40 mg DAILY IV 01/26/19 09:00 02/25/19 08:59 01/27/19 08:23 Gabapentin (Neurontin) 900 mg THREE TIMES A DAY ORAL 01/22/19 13:00 02/21/19 12:59 01/27/19 08:24 Hydromorphone HCl (Dilaudid) 5 mg Q3H PRN IV pain 7-10 01/22/19 11:00 01/29/19 10:59 01/27/19 11:35 Levetiracetam (Keppra) 1,000 mg Q8HR ORAL 01/22/19 14:00 02/21/19 13:59 01/27/19 05:52 Lidocaine HCl (Xylocaine 1% 30ml) 30 ml ONCE PRN INJ PICC PLACEMENT 01/27/19 14:00 01/27/19 23:59 Lorazepam (Ativan) 1 mg Q6H PRN ORAL For Anxiety 01/23/19 12:45 01/30/19 12:44 Methadone HCl (Methadone HCl) 20 mg EVERY 8 HOURS ORAL 01/22/19 11:00 01/29/19 10:59 01/27/19 05:53 Miconazole Nitrate (Miconazole Nitrate) 1 applic BID TOPIC 01/22/19 14:00 02/21/19 13:59 01/27/19 08:26 Morphine Sulfate (Morphine Sulfate) 2 mg Q4H PRN IVP moderate pain 01/22/19 11:15 01/29/19 10:59 Nitroglycerin (Ntg) 0.4 mg Q5M PRN SL Prn Chest Pain 01/22/19 11:00 02/21/19 10:59 Ondansetron HCl (Zofran) 4 mg Q6H PRN IVP Nausea & Vomiting 01/22/19 11:00 02/21/19 10:59 Polyethylene Glycol (Miralax) 17 gm DAILYPRN PRN ORAL Constipation 01/22/19 11:00 02/21/19 10:59 Temazepam (Restoril) 15 mg HSPRN PRN ORAL Insomnia 01/22/19 11:00 01/29/19 10:59 Bill Dixon MD Jan 27, 2019 13:15
[2019-01-27] MEDS ORDERED: Lidocaine 1% Plain 30 ml INJ PRN (14:00)
--- NOTE | 2019-01-27 14:09 | Cardiac Electrophysiology PN ---
Assessment/Plan Assessment/Plan 1. Hypertension. Continue amlodipine 5 mg daily and Lasix 40 mg IV daily. EF 60% 2. Severe bilateral lower extremity edema and cellulitis. On IV antibiotic per Dr. Patterson. PICC line today 3. Abdominal pannus. 4. Chronic obstructive pulmonary disease. 5. Obstructive sleep apnea. 6. Right heart failure. 7. Lumbar spondylosis. 8. Morbid obesity. No further cardiac testing needed prior to Abdominal surgery. Remains at moderate to high risk. JESICA RN Subjective Subjective Surgery postponed to Friday. No CP or SOB. Getting PICC line in preparation of surgery Objective Last 24 Hour Vital Signs Date Time Temp Pulse Resp B/P (MAP) Pulse Ox O2 Delivery O2 Flow Rate FiO2 01/27/19 12:00 98.6 84 20 129/72 (91) 95 01/27/19 09:00 Room Air 01/27/19 08:24 93 147/87 01/27/19 08:00 98.6 93 20 147/87 (107) 95 01/27/19 06:41 74 18 95 Room Air 21 01/27/19 04:08 98.6 01/27/19 03:57 98.6 87 20 136/74 (94) 93 01/27/19 00:00 99.1 87 20 132/73 (92) 95 01/26/19 21:00 Room Air 01/26/19 20:00 98.3 76 18 127/68 (87) 94 01/26/19 19:44 84 20 93 Room Air 21 01/26/19 16:00 97.6 83 18 113/58 (76) 94 Intake and Output 01/26/19 01/27/19 19:00 07:00 Intake Total 720 ml 1200 ml Output Total 3500 ml 1200 ml Balance -2780 ml 0 ml Intake Oral 720 ml 1200 ml Output Urine Total 3500 ml 1200 ml # Bowel Movements 2 2 Laboratory Tests Test 01/27/19 05:00 White Blood Count 7.9 K/UL (4.8-10.8) Red Blood Count 3.55 M/UL (4.70-6.10) L Hemoglobin 10.8 G/DL (14.2-18.0) L Hematocrit 34.0 % (42.0-52.0) L Mean Corpuscular Volume 96 FL (80-99) Mean Corpuscular Hemoglobin 30.3 PG (27.0-31.0) Mean Corpuscular Hemoglobin Concent 31.7 G/DL (32.0-36.0) L Red Cell Distribution Width 14.2 % (11.6-14.8) Platelet Count 301 K/UL (150-450) Mean Platelet Volume 4.6 FL (6.5-10.1) L Neutrophils (%) (Auto) 59.1 % (45.0-75.0) Lymphocytes (%) (Auto) 26.9 % (20.0-45.0) Monocytes (%) (Auto) 7.0 % (1.0-10.0) Eosinophils (%) (Auto) 5.3 % (0.0-3.0) H Basophils (%) (Auto) 1.7 % (0.0-2.0) Sodium Level 141 MMOL/L (136-145) Potassium Level 4.7 MMOL/L (3.5-5.1) Chloride Level 103 MMOL/L (98-107) Carbon Dioxide Level 27 MMOL/L (21-32) Anion Gap 11 mmol/L (5-15) Blood Urea Nitrogen 18 mg/dL (7-18) Creatinine 1.1 MG/DL (0.55-1.30) Estimat Glomerular Filtration Rate > 60 mL/min (>60) Glucose Level 97 MG/DL (74-106) Calcium Level 8.9 MG/DL (8.5-10.1) Objective HEAD AND NECK: No JVD. LUNGS: Clear. CARDIOVASCULAR: Regular S1 and S2 with no gallop or murmur. ABDOMEN: Very swollen, erythematous, and enlarged scrotum. EXTREMITIES: 2+ pitting edema and cellulitis of the legs. Carlos Yee MD Jan 27, 2019 14:09
--- NOTE | 2019-01-27 15:15 | NUR ---
RADIOLOGY: LUE PICC PLACED
--- NOTE | 2019-01-27 15:27 | Infectious Diseases Prog Note ---
Assessment/Plan Assessment/Plan Abx: IV Vancomycin x1 01/22 Fluconazole 01/22- Assessment: R groin swelling and pain- 2ry from Volume overload Sandy intertrigo B/l Leg cellulitis and panniculitis - in the setting of chronic venous stasis, s /p Rx Active infectious cellulitis essentially resolved. Now he has chronic venous stasis and neuropathic pain with poorly healing wounds. Alot off this is due to the severe swelling in his feet but also he is poorly compliant with wound care instructions. Afebrile No leukocytosis Recent seizure episode -had L side weakness and spasticity CVA HTN bipolar disorder w/ psychotic features tobacco abuse anxiety disorder chronic pain CHF seizure disorder COPD morbid obesity Dm2 HTN SNF resident Plan: -Cont Miconazole topical - Needs wound care for healing. -/ SP Fluconzole #5 - 01/07/19 SP IV Dapto d# 14 - 01/06/19 S/P Levofloxacin #7 - 12/25 sp Bactrim #/ and add IV Ancef #/ for cellulitis - Monitor CBC/CMP, temperatures - aspiration precautions - wound care per hospital protocol -Uro eval Subjective Allergies: Coded Allergies: ASPIRIN (Verified Allergy, Unknown, 07/14/18) KETOROLAC (Verified Allergy, Unknown, 07/14/18) PENICILLINS (Verified Allergy, Unknown, 12/23/18) tolerated Ancef on 08/2018 Subjective afebrile no leukocytosis panniculectomy cancelled and reschedule for next week Objective Vital Signs Last 24 Hour Vital Signs Date Time Temp Pulse Resp B/P (MAP) Pulse Ox O2 Delivery O2 Flow Rate FiO2 01/27/19 12:00 98.6 84 20 129/72 (91) 95 01/27/19 09:00 Room Air 01/27/19 08:24 93 147/87 01/27/19 08:00 98.6 93 20 147/87 (107) 95 01/27/19 06:41 74 18 95 Room Air 21 01/27/19 04:08 98.6 01/27/19 03:57 98.6 87 20 136/74 (94) 93 01/27/19 00:00 99.1 87 20 132/73 (92) 95 01/26/19 21:00 Room Air 01/26/19 20:00 98.3 76 18 127/68 (87) 94 7/2/19 19:44 84 20 93 Room Air 21 01/26/19 16:00 97.6 83 18 113/58 (76) 94 Height (Feet): 6 Height (Inches): 0.00 Weight (Pounds): 412 Objective General Appearance: alert, moderate distress, obese Head: atraumatic Eyes: bilateral eye normal inspection ENT: normal ENT inspection, hearing grossly normal, normal voice Neck: normal inspection, full range of motion, supple, no bony tend Respiratory: normal inspection, lungs clear, normal breath sounds, no respiratory distress, no retraction, no wheezing Cardiovascular #1: regular rate, rhythm Gastrointestinal: normal inspection, normal bowel sounds, soft, no guarding, no hernia, other - Left lower abdominal area Genitourinary: other - Swollen groin edematous erythematous enlarged scrotum Musculoskeletal: normal inspection, back normal, normal range of motion Neurologic: normal inspection, alert, responsive, speech normal Psychiatric: depressed affect, anxious Skin: normal inspection, normal color, no rash Laboratory Tests Test 01/27/19 05:00 White Blood Count 7.9 K/UL (4.8-10.8) Red Blood Count 3.55 M/UL (4.70-6.10) L Hemoglobin 10.8 G/DL (14.2-18.0) L Hematocrit 34.0 % (42.0-52.0) L Mean Corpuscular Volume 96 FL (80-99) Mean Corpuscular Hemoglobin 30.3 PG (27.0-31.0) Mean Corpuscular Hemoglobin Concent 31.7 G/DL (32.0-36.0) L Red Cell Distribution Width 14.2 % (11.6-14.8) Platelet Count 301 K/UL (150-450) Mean Platelet Volume 4.6 FL (6.5-10.1) L Neutrophils (%) (Auto) 59.1 % (45.0-75.0) Lymphocytes (%) (Auto) 26.9 % (20.0-45.0) Monocytes (%) (Auto) 7.0 % (1.0-10.0) Eosinophils (%) (Auto) 5.3 % (0.0-3.0) H Basophils (%) (Auto) 1.7 % (0.0-2.0) Sodium Level 141 MMOL/L (136-145) Potassium Level 4.7 MMOL/L (3.5-5.1) Chloride Level 103 MMOL/L (98-107) Carbon Dioxide Level 27 MMOL/L (21-32) Anion Gap 11 mmol/L (5-15) Blood Urea Nitrogen 18 mg/dL (7-18) Creatinine 1.1 MG/DL (0.55-1.30) Estimat Glomerular Filtration Rate > 60 mL/min (>60) Glucose Level 97 MG/DL (74-106) Calcium Level 8.9 MG/DL (8.5-10.1) Current Medications Medications (Trade) Dose Ordered Sig/Luis Route PRN Reason Start Time Stop Time Status Last Admin Dose Admin Acetaminophen (Tylenol) 650 mg Q4H PRN ORAL fever 01/22/19 11:00 02/21/19 10:59 Acetaminophen/ Hydrocodone Bitart ([place] 10/325) 1 tab Q6H PRN ORAL mild pain 01/22/19 11:15 01/29/19 10:59 Amlodipine Besylate (Norvasc) 5 mg DAILY ORAL 01/23/19 09:00 02/22/19 08:59 01/27/19 08:24 Chlorhexidine Gluconate (Ruby-Hex 2%) 1 applic DAILY@1999 TOPIC 01/27/19 20:00 02/26/19 19:59 Dextrose (Dextrose 50%) 25 ml Q30M PRN IV Hypoglycemia 01/22/19 11:00 02/21/19 10:59 Dextrose (Dextrose 50%) 50 ml Q30M PRN IV hypoglycemia 01/22/19 11:00 02/21/19 10:59 Duloxetine HCl (Cymbalta) 30 mg DAILY ORAL 01/23/19 09:00 02/22/19 08:59 01/27/19 08:23 Furosemide (Lasix) 40 mg DAILY IV 01/26/19 09:00 02/25/19 08:59 01/27/19 08:23 Gabapentin (Neurontin) 900 mg THREE TIMES A DAY ORAL 01/22/19 13:00 02/21/19 12:59 01/27/19 14:14 Hydromorphone HCl (Dilaudid) 5 mg Q3H PRN IV pain 7-10 01/22/19 11:00 01/29/19 10:59 01/27/19 11:35 Levetiracetam (Keppra) 1,000 mg Q8HR ORAL 01/22/19 14:00 02/21/19 13:59 01/27/19 14:14 Lidocaine HCl (Xylocaine 1% 30ml) 30 ml ONCE PRN INJ PICC PLACEMENT 01/27/19 14:00 01/27/19 23:59 Lorazepam (Ativan) 1 mg Q6H PRN ORAL For Anxiety 01/23/19 12:45 01/30/19 12:44 Methadone HCl (Methadone HCl) 20 mg EVERY 8 HOURS ORAL 01/22/19 11:00 01/29/19 10:59 01/27/19 14:15 Miconazole Nitrate (Miconazole Nitrate) 1 applic BID TOPIC 01/22/19 14:00 02/21/19 13:59 01/27/19 08:26 Morphine Sulfate (Morphine Sulfate) 2 mg Q4H PRN IVP moderate pain 01/22/19 11:15 01/29/19 10:59 Nitroglycerin (Ntg) 0.4 mg Q5M PRN SL Prn Chest Pain 01/22/19 11:00 02/21/19 10:59 Ondansetron HCl (Zofran) 4 mg Q6H PRN IVP Nausea & Vomiting 01/22/19 11:00 02/21/19 10:59 Polyethylene Glycol (Miralax) 17 gm DAILYPRN PRN ORAL Constipation 01/22/19 11:00 02/21/19 10:59 Temazepam (Restoril) 15 mg HSPRN PRN ORAL Insomnia 01/22/19 11:00 01/29/19 10:59 Alexa Patterson M.D. Jan 27, 2019 15:27
--- NOTE | 2019-01-27 15:28 | NUR ---
P.T NOTE: P.T EVALUATION COMPLETED AND TREATMENT INITIATED. PLEASE REFER TO P.T EVALUATION FOR CURRENT FUNCTIONAL STATUS. PATIENT IS ALERT, O X 4, PLEASANT AND COOPERATIVE. PATIENT REPORTS C/O PAIN AND SWELLING OF BLE AND SCROTAL AREA AND DISCOMFORT FROM THE MORGAN CATHETER INSERTION . PATIENT'S MOBILITY IS LIMITED BY PAIN , GENERALIZED WEAKNESS, DECREASED ACTIVITY TOLERANCE AND BODY HABITUS. PATIENT ABLE TO PERFORM BED MOBILITY AND TRANSFER MOBILITY TASKS WITH SBA X 1. PATIENT ABLE TO AMBULATED AND TOLERATED NOT MORE THAN 25 FT USING THE BARIATRIC FWW. PATIENT PRESENTED POOR+ ACTIVITY TOLERANCE. SKILLED P.T SERVICE IS WARRANTED TO INCREASE STRENGTH, ACTIVITY TOLERANCE TO INCREASE MOBILITY INDEPENDENCE AND SAFETY. RECOMMEND RETURN TO SNF FOR FURTHER REHAB AND WOULD ALSO BENEFIT FROM BARIATRIC FWW. THANK YOU FOR THIS REFERRAL.
[2019-01-27 15:48] VITALS: BP 132/64
--- NOTE | 2019-01-27 16:29 | NUR ---
NURSE NOTES: PT RECEIVED ON UNIT FROM PICC PROCEDURE. PICC ON LEFT UPPER ARM DOUBLE LUMEN. AWAITING ORDER FOR OK TO USE PICC. PT WITH PERIPHERAL IV ACCESS JADE G24; ASYMPTOMATIC, PATENT AND INTACT.
--- NOTE | 2019-01-27 16:42 | Diagnostic Imaging Report ---
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 The left upper extremity was prepped with alcohol. All elements of maximal sterile barrier technique were followed including usage of a cap, mask, sterile gown, sterile gloves, hand hygiene and a large sterile sheet. Sonographic evaluation of the upper extremity was performed demonstrating a patent and compressible brachial vein. Access was obtained under real-time ultrasound guidance (with utilization of sterile gel and sterile probe cover) and digital image was saved and archived. An .018 wire was introduced. Needle exchanged for a 5 [place] peel-away sheath. Measurements were obtained. A 5 [place] dual-lumen Power PICC line catheter was cut to 55 cm and introduced over the wire. Peel-away sheath and wire were removed.Catheter was secured to the skin using 2-0 Prolene suture. Both ports aspirate and flush easily. A single fluoroscopic image shows the distal tip in the superior vena cava. Fluoroscopic time 46 seconds. Impression: Successful placement of an upper extremity PICC line catheter
--- NOTE | 2019-01-27 18:24 | General Progress Note ---
Assessment/Plan Status: stable, progressing Assessment/Plan: Plan for surgery on 02/01. Need to keep in hospital until surgery day. Will make NPO after midnight friday. All questions answered. Subjective Date patient seen: Jan 27, 2019 Time patient seen: 18:20 Allergies: Coded Allergies: ASPIRIN (Verified Allergy, Unknown, 07/14/18) KETOROLAC (Verified Allergy, Unknown, 07/14/18) PENICILLINS (Verified Allergy, Unknown, 12/23/18) tolerated Ancef on 08/2018 Subjective Patient scheduled for panniculectomy on 02/01/19. He has lindsey in place, PICC line placed today, and is off of his plavix. He has no complaints and feels his scrotal edema is improving as well. Objective Last 24 Hour Vital Signs Date Time Temp Pulse Resp B/P (MAP) Pulse Ox O2 Delivery O2 Flow Rate FiO2 01/27/19 15:48 98.5 85 20 132/64 (86) 95 01/27/19 12:00 98.6 84 20 129/72 (91) 95 01/27/19 09:00 Room Air 01/27/19 08:24 93 147/87 01/27/19 08:00 98.6 93 20 147/87 (107) 95 01/27/19 06:41 74 18 95 Room Air 21 01/27/19 04:08 98.6 01/27/19 03:57 98.6 87 20 136/74 (94) 93 01/27/19 00:00 99.1 87 20 132/73 (92) 95 01/26/19 21:00 Room Air 01/26/19 20:00 98.3 76 18 127/68 (87) 94 01/26/19 19:44 84 20 93 Room Air 21 Intake and Output 01/26/19 01/27/19 19:00 07:00 Intake Total 720 ml 1200 ml Output Total 3500 ml 1200 ml Balance -2780 ml 0 ml Intake Oral 720 ml 1200 ml Output Urine Total 3500 ml 1200 ml # Bowel Movements 2 2 Laboratory Tests 01/27/19 05:00: White Blood Count 7.9, Red Blood Count 3.55L, Hemoglobin 10.8L, Hematocrit 34.0L , Mean Corpuscular Volume 96, Mean Corpuscular Hemoglobin 30.3, Mean Corpuscular Hemoglobin Concent 31.7L, Red Cell Distribution Width 14.2, Platelet Count 301, Mean Platelet Volume 4.6L, Neutrophils (%) (Auto) 59.1, Lymphocytes (%) (Auto) 26.9, Monocytes (%) (Auto) 7.0, Eosinophils (%) (Auto) 5.3H, Basophils (%) (Auto) 1.7, Sodium Level 141, Potassium Level 4.7, Chloride Level 103, Carbon Dioxide Level 27, Anion Gap 11, Blood Urea Nitrogen 18, Creatinine 1.1, Estimat Glomerular Filtration Rate > 60, Glucose Level 97, Calcium Level 8.9 Height (Feet): 6 Height (Inches): 0.00 Weight (Pounds): 412 General Appearance: no apparent distress, alert Abdomen: soft Skin: other - Decreased scrotal swelling. Erythema in lower abdomen/groin resolved. Reggie Roberts MD Jan 27, 2019 18:24
--- NOTE | 2019-01-27 19:35 | NUR ---
HAND-OFF: Report given to JORDY DAO RN.
--- NOTE | 2019-01-27 19:36 | NUR ---
NURSE NOTES: Received patient in no apparent distress. A&OX4. IV site patent and intact, PICC line noted on left upper arm, patent and intact. Pires cath draining well by gravity, alber urine noted. Dressing noted on left leg, dry and intact. Bed in lowest position. Call light within reach. Will continue to monitor.
[2019-01-27 20:00] VITALS: BP 135/71
--- NOTE | 2019-01-27 22:15 | Progress Note ---
DATE: 01/27/2019 SUBJECTIVE: This is a 53-year-old male, rule out cerebrovascular disease. The patient continued to have some confusion, some disorganized thought process, and decline in cognition below below his baseline with increased anxiety and depression because of the stress of his medical illness. He has cellulitis, that is why he is in the hospital, but he also has mood lability. MENTAL STATUS EXAMINATION: This is a 53-year-old male. Appearance is disheveled. Attitude, irritable and agitated. Affect, guarded and restricted. Intellect poor. Mood depressed and anxious. Motor activity, psychomotor agitation. Attention span is poor. Orientation x2. Speech is pressured. Thought process, disorganized and illogical. Insight and judgment is poor. DIAGNOSIS: Major depressive disorder, mild, recurrent, without psychotic features. PLAN: Treat him with Neurontin 900 mg 3 times a day, Cymbalta 30 mg a day, Ativan 1 mg every 6 hours p.r.n. anxiety and agitation. Provided him with 20 minutes of cognitive behavioral therapy to help him identify his automatic thoughts and help him convert those negative thoughts to more positive thoughts to reduce depression, anxiety, and mood lability. Chart reviewed. Discussed with staff. Seen and assessed at bedside. Laney Mcghee M.D. DR: GEENA JOB#: [id number] CC:
[2019-01-27] MEDS: Dyna-Hex 2% Top Sol 2oz TOPIC SCH (22:59)
[2019-01-28] VITALS: BP 140/63
--- NOTE | 2019-01-28 | NUR ---
NURSE NOTES: Dressing changed on left lower leg.
[2019-01-28 04:00] VITALS: BP 136/66
[2019-01-28 06:10] LABS: BASOPHILS % (AUTO) 0.7 % (0.0-2.0); EOSINOPHILS % (AUTO) 5.8 % (0.0-3.0); HEMATOCRIT 34.6 % (42.0-52.0); HEMOGLOBIN 10.9 G/DL (14.2-18.0); LYMPHOCYTES % (AUTO) 30.1 % (20.0-45.0); MEAN CORPUSCULAR VOLUME 96 FL (80-99); MONOCYTES % (AUTO) 7.7 % (1.0-10.0); NEUTROPHILS % (AUTO) 55.8 % (45.0-75.0); PLATELET COUNT 285 K/UL (150-450); RED BLOOD COUNT 3.62 M/UL (4.70-6.10); WHITE BLOOD COUNT 8.3 K/UL (4.8-10.8)
[2019-01-28 06:23] LABS: ANION GAP 6 mmol/L (5-15); BLOOD UREA NITROGEN 17 mg/dL (7-18); CALCIUM 8.7 MG/DL (8.5-10.1); CARBON DIOXIDE 34 MMOL/L (21-32); CHLORIDE 103 MMOL/L (98-107); CREATININE 1.1 MG/DL (0.55-1.30); POTASSIUM 4.4 MMOL/L (3.5-5.1); SODIUM 143 MMOL/L (136-145)
--- NOTE | 2019-01-28 07:30 | Pulmonology Progress Note ---
Assessment/Plan Assessment/Plan ASSESSMENT Abdominal pannus COPD ADALBERTO Right heart failure Hypertension Morbid obesity Massive scrotal edema secondary to anasarca Bilateral lower extremity cellulitis and panniculitis with edema in setting of chronic venous stasis Intertrigo Seizure disorder History of CVA with left-sided weakness Major depressive disorder PLAN OF CARE MS floor surgery scheduled for 02/01-panniculectomy O2 PRN, titrate to keep pulse above 92%, HHN prn BiPAP at night BP management with CCB and Lasix -increase dose from daily to bid , monitor volumes, cardiorenal parameters ECHO with EF 60% off Plavix and heparin 2/2 scrotal bleeding s/p abx fpr Rx of cellulitis , ID follows, continue miconazole cream for intertrigo seen by urologist , Pires cath placed elevate scrotum pain management seizure precautions, continue Keppra psych meds as per psychiatrist case discussed and evaluated by supervising physician Subjective Allergies: Coded Allergies: ASPIRIN (Verified Allergy, Unknown, 07/14/18) KETOROLAC (Verified Allergy, Unknown, 07/14/18) PENICILLINS (Verified Allergy, Unknown, 12/23/18) tolerated Ancef on 08/2018 Subjective denies chest pain, SOB still significant edema BLE, scrotal edema Objective Last 24 Hour Vital Signs Date Time Temp Pulse Resp B/P (MAP) Pulse Ox O2 Delivery O2 Flow Rate FiO2 01/28/19 04:00 98.7 91 20 136/66 (89) 95 01/28/19 00:00 98.5 87 19 140/63 (88) 96 01/27/19 21:00 Nasal Cannula 3.0 01/27/19 20:00 98.7 86 19 135/71 (92) 95 01/27/19 15:48 98.5 85 20 132/64 (86) 95 01/27/19 12:00 98.6 84 20 129/72 (91) 95 01/27/19 09:00 Room Air 01/27/19 08:24 93 147/87 01/27/19 08:00 98.6 93 20 147/87 (107) 95 Intake and Output 01/27/19 01/28/19 18:59 06:59 Intake Total 1440 ml 780 ml Output Total 3300 ml 700 ml Balance -1860 ml 80 ml Intake Oral 1440 ml 780 ml Output Urine Total 3300 ml 700 ml # Voids 4 # Bowel Movements 1 General Appearance: no acute distress, other - A/A/O x 4 morbidly obese male HEENT: normocephalic, atraumatic, anicteric, mucous membranes moist, PERRL Respiratory/Chest: lungs clear, no respiratory distress Cardiovascular: normal rate - distant heart sounds Abdomen: normal bowel sounds, soft, non tender - pannus Genitourinary: other - massive scrotal edema . erythematous, edematous Extremities: pedal pulses normal, other - +3 BLE Skin: other - chronic venous stasis Neurologic/Psychiatric: alert, oriented x 3, responsive Musculoskeletal: normal muscle bulk Laboratory Tests 01/28/19 06:00: White Blood Count 8.3, Red Blood Count 3.62L, Hemoglobin 10.9L, Hematocrit 34.6L , Mean Corpuscular Volume 96, Mean Corpuscular Hemoglobin 30.1, Mean Corpuscular Hemoglobin Concent 31.6L, Red Cell Distribution Width 14.0, Platelet Count 285, Mean Platelet Volume 4.6L, Neutrophils (%) (Auto) 55.8, Lymphocytes (%) (Auto) 30.1, Monocytes (%) (Auto) 7.7, Eosinophils (%) (Auto) 5.8H, Basophils (%) (Auto) 0.7, Sodium Level 143, Potassium Level 4.4, Chloride Level 103, Carbon Dioxide Level 34H, Anion Gap 6, Blood Urea Nitrogen 17, Creatinine 1.1, Estimat Glomerular Filtration Rate > 60, Glucose Level 113H, Calcium Level 8.7 Current Medications Medications (Trade) Dose Ordered Sig/Luis Route PRN Reason Start Time Stop Time Status Last Admin Dose Admin Acetaminophen (Tylenol) 650 mg Q4H PRN ORAL fever 01/22/19 11:00 02/21/19 10:59 Acetaminophen/ Hydrocodone Bitart ([place] 10/325) 1 tab Q6H PRN ORAL mild pain 01/22/19 11:15 01/29/19 10:59 Amlodipine Besylate (Norvasc) 5 mg DAILY ORAL 01/23/19 09:00 02/22/19 08:59 01/27/19 08:24 Chlorhexidine Gluconate (Ruby-Hex 2%) 1 applic DAILY@1999 TOPIC 01/27/19 20:00 02/26/19 19:59 01/27/19 22:59 Dextrose (Dextrose 50%) 25 ml Q30M PRN IV Hypoglycemia 01/22/19 11:00 02/21/19 10:59 Dextrose (Dextrose 50%) 50 ml Q30M PRN IV hypoglycemia 01/22/19 11:00 02/21/19 10:59 Duloxetine HCl (Cymbalta) 30 mg DAILY ORAL 01/23/19 09:00 02/22/19 08:59 01/27/19 08:23 Furosemide (Lasix) 40 mg DAILY IV 01/26/19 09:00 02/25/19 08:59 01/27/19 08:23 Gabapentin (Neurontin) 900 mg THREE TIMES A DAY ORAL 01/22/19 13:00 02/21/19 12:59 01/27/19 18:23 Hydromorphone HCl (Dilaudid) 5 mg Q3H PRN IV pain 7-10 01/22/19 11:00 01/29/19 10:59 01/28/19 05:46 Levetiracetam (Keppra) 1,000 mg Q8HR ORAL 01/22/19 14:00 02/21/19 13:59 01/28/19 06:35 Lorazepam (Ativan) 1 mg Q6H PRN ORAL For Anxiety 01/23/19 12:45 01/30/19 12:44 Methadone HCl (Methadone HCl) 20 mg EVERY 8 HOURS ORAL 01/22/19 11:00 01/29/19 10:59 01/28/19 06:34 Miconazole Nitrate (Miconazole Nitrate) 1 applic BID TOPIC 01/22/19 14:00 02/21/19 13:59 01/27/19 18:24 Morphine Sulfate (Morphine Sulfate) 2 mg Q4H PRN IVP moderate pain 01/22/19 11:15 01/29/19 10:59 Nitroglycerin (Ntg) 0.4 mg Q5M PRN SL Prn Chest Pain 01/22/19 11:00 02/21/19 10:59 Ondansetron HCl (Zofran) 4 mg Q6H PRN IVP Nausea & Vomiting 01/22/19 11:00 02/21/19 10:59 Polyethylene Glycol (Miralax) 17 gm DAILYPRN PRN ORAL Constipation 01/22/19 11:00 02/21/19 10:59 Temazepam (Restoril) 15 mg HSPRN PRN ORAL Insomnia 01/22/19 11:00 01/29/19 10:59 Kiera Vivar NP Jan 28, 2019 07:30
--- NOTE | 2019-01-28 07:40 | NUR ---
HAND-OFF: Report given to Hal HINOJOSA.
[2019-01-28 08:00] VITALS: BP 155/77
--- NOTE | 2019-01-28 08:07 | NUR ---
NURSE NOTES: received report from MICAELA Vasquez. patient in bed. sleeping. no respiratory distress noted on 3l via NC. PICC line on left upper arm. coude cath in place. draining. bed in the lowest position. call light within reach. will priovide plan of care.
--- NOTE | 2019-01-28 08:25 | General Progress Note ---
Assessment/Plan Problem List: (1) Seizures ICD Codes: R56.9 - Unspecified convulsions SNOMED: 82887957 (2) Cerebrovascular accident ICD Codes: I63.9 - Cerebral infarction, unspecified SNOMED: 644503760 (3) Peripheral edema ICD Codes: R60.9 - Edema, unspecified SNOMED: 586251761 (4) Neuropathy ICD Codes: G62.9 - Polyneuropathy, unspecified SNOMED: 621029793 (5) Cellulitis of groin, left ICD Codes: L03.314 - Cellulitis of groin SNOMED: 10481310 (6) Cellulitis ICD Codes: L03.90 - Cellulitis, unspecified SNOMED: 175115213 (7) COPD (chronic obstructive pulmonary disease) ICD Codes: J44.9 - Chronic obstructive pulmonary disease, unspecified SNOMED: 40248644 (8) Morbid obesity ICD Codes: E66.01 - Morbid (severe) obesity due to excess calories SNOMED: 514541832 (9) Abdominal pannus ICD Codes: E65 - Localized adiposity SNOMED: 6975858949020 (10) Abdominal wall cellulitis ICD Codes: L03.311 - Cellulitis of abdominal wall SNOMED: 41040196 (11) UTI (urinary tract infection) ICD Codes: N39.0 - Urinary tract infection, site not specified SNOMED: 11140728 Status: stable, progressing Assessment/Plan: o2 pulm tx abx pt diet pending pannus surgery Subjective Constitutional: Reports: weakness Allergies: Coded Allergies: ASPIRIN (Verified Allergy, Unknown, 07/14/18) KETOROLAC (Verified Allergy, Unknown, 07/14/18) PENICILLINS (Verified Allergy, Unknown, 12/23/18) tolerated Ancef on 08/2018 All Systems: reviewed and negative except above Subjective sleepy calm Objective Last 24 Hour Vital Signs Date Time Temp Pulse Resp B/P (MAP) Pulse Ox O2 Delivery O2 Flow Rate FiO2 01/28/19 04:00 98.7 91 20 136/66 (89) 95 01/28/19 00:00 98.5 87 19 140/63 (88) 96 01/27/19 21:00 Nasal Cannula 3.0 01/27/19 20:00 98.7 86 19 135/71 (92) 95 01/27/19 15:48 98.5 85 20 132/64 (86) 95 01/27/19 12:00 98.6 84 20 129/72 (91) 95 01/27/19 09:00 Room Air Intake and Output 01/27/19 01/28/19 18:59 06:59 Intake Total 1440 ml 780 ml Output Total 3300 ml 700 ml Balance -1860 ml 80 ml Intake Oral 1440 ml 780 ml Output Urine Total 3300 ml 700 ml # Voids 4 # Bowel Movements 1 Laboratory Tests 01/28/19 06:00: White Blood Count 8.3, Red Blood Count 3.62L, Hemoglobin 10.9L, Hematocrit 34.6L , Mean Corpuscular Volume 96, Mean Corpuscular Hemoglobin 30.1, Mean Corpuscular Hemoglobin Concent 31.6L, Red Cell Distribution Width 14.0, Platelet Count 285, Mean Platelet Volume 4.6L, Neutrophils (%) (Auto) 55.8, Lymphocytes (%) (Auto) 30.1, Monocytes (%) (Auto) 7.7, Eosinophils (%) (Auto) 5.8H, Basophils (%) (Auto) 0.7, Sodium Level 143, Potassium Level 4.4, Chloride Level 103, Carbon Dioxide Level 34H, Anion Gap 6, Blood Urea Nitrogen 17, Creatinine 1.1, Estimat Glomerular Filtration Rate > 60, Glucose Level 113H, Calcium Level 8.7 Height (Feet): 6 Height (Inches): 0.00 Weight (Pounds): 412 General Appearance: lethargic EENT: normal ENT inspection Neck: normal alignment Cardiovascular: normal peripheral pulses, normal rate, regular rhythm Respiratory/Chest: chest wall non-tender, lungs clear, normal breath sounds Abdomen: normal bowel sounds, soft, distended Extremities: normal inspection Edema: 1+ Arm (L), 1+ Arm (R), 1+ Leg (L), 1+ Leg (R), 1+ Pedal (L), 1+ Pedal ( R), 1+ Generalized Edema: trace edema Neurologic: motor weakness Skin: normal pigmentation, warm/dry Ernesto Nicole DO Jan 28, 2019 08:25
[2019-01-28] MEDS: Miconazole 2% Cream 30gm TOPIC SCH ×2 (09:00→18:29)
[2019-01-28] MEDS: DULoxetine 30mg cap ORAL SCH (09:17)
[2019-01-28] MEDS ORDERED: HYDROcodone/Acetamin 10/325 tab ORAL PRN (09:30)
[2019-01-28] MEDS ORDERED: Morphine Sulfate 2mg/ml Inj(IV/IM USE ONLY) IVP PRN (09:30)
--- NOTE | 2019-01-28 11:08 | NUR ---
NURSE NOTES: patient got picc line insertion on 01/27/19. notified dr. Goss and received order of OK to use PICC line. order noted and carried out.
[2019-01-28] MEDS: Albuterol/Ipratropium 3ml neb HHN SCH ×4 (11:29→23:14)
[2019-01-28 12:00] VITALS: BP 154/91
--- NOTE | 2019-01-28 14:47 | Cardiac Electrophysiology PN ---
Assessment/Plan Assessment/Plan 1. Hypertension. Continue amlodipine 5 mg daily and Lasix 40 mg IV daily. EF 60% 2. Severe bilateral lower extremity edema and cellulitis. On IV antibiotic per Dr. Patterson. 3. Abdominal pannus. 4. Chronic obstructive pulmonary disease. 5. Obstructive sleep apnea. 6. Right heart failure. 7. Lumbar spondylosis. 8. Morbid obesity. No further cardiac testing needed prior to Abdominal surgery. Remains at moderate to high risk. JESICA RN Subjective Subjective No CP or SOB. Now has PICC line and Pires in preparation of surgery on Friday Objective Last 24 Hour Vital Signs Date Time Temp Pulse Resp B/P (MAP) Pulse Ox O2 Delivery O2 Flow Rate FiO2 01/28/19 12:00 98.5 81 20 154/91 (112) 97 01/28/19 11:33 79 20 99 Nasal Cannula 2.0 28 01/28/19 11:30 97 Nasal Cannula 2.0 28 01/28/19 11:23 80 20 97 Nasal Cannula 2.0 28 01/28/19 09:17 98 155/77 01/28/19 09:00 Nasal Cannula 3.0 01/28/19 08:00 98.4 98 20 155/77 (103) 97 01/28/19 04:00 98.7 91 20 136/66 (89) 95 01/28/19 00:00 98.5 87 19 140/63 (88) 96 01/27/19 21:00 Nasal Cannula 3.0 01/27/19 20:00 98.7 86 19 135/71 (92) 95 01/27/19 15:48 98.5 85 20 132/64 (86) 95 Intake and Output 01/27/19 01/28/19 19:00 07:00 Intake Total 1440 ml 780 ml Output Total 3300 ml 700 ml Balance -1860 ml 80 ml Intake Oral 1440 ml 780 ml Output Urine Total 3300 ml 700 ml # Voids 4 # Bowel Movements 1 Laboratory Tests Test 01/28/19 06:00 White Blood Count 8.3 K/UL (4.8-10.8) Red Blood Count 3.62 M/UL (4.70-6.10) L Hemoglobin 10.9 G/DL (14.2-18.0) L Hematocrit 34.6 % (42.0-52.0) L Mean Corpuscular Volume 96 FL (80-99) Mean Corpuscular Hemoglobin 30.1 PG (27.0-31.0) Mean Corpuscular Hemoglobin Concent 31.6 G/DL (32.0-36.0) L Red Cell Distribution Width 14.0 % (11.6-14.8) Platelet Count 285 K/UL (150-450) Mean Platelet Volume 4.6 FL (6.5-10.1) L Neutrophils (%) (Auto) 55.8 % (45.0-75.0) Lymphocytes (%) (Auto) 30.1 % (20.0-45.0) Monocytes (%) (Auto) 7.7 % (1.0-10.0) Eosinophils (%) (Auto) 5.8 % (0.0-3.0) H Basophils (%) (Auto) 0.7 % (0.0-2.0) Sodium Level 143 MMOL/L (136-145) Potassium Level 4.4 MMOL/L (3.5-5.1) Chloride Level 103 MMOL/L (98-107) Carbon Dioxide Level 34 MMOL/L (21-32) H Anion Gap 6 mmol/L (5-15) Blood Urea Nitrogen 17 mg/dL (7-18) Creatinine 1.1 MG/DL (0.55-1.30) Estimat Glomerular Filtration Rate > 60 mL/min (>60) Glucose Level 113 MG/DL (74-106) H Calcium Level 8.7 MG/DL (8.5-10.1) Objective HEAD AND NECK: No JVD. LUNGS: Clear. CARDIOVASCULAR: Regular S1 and S2 with no gallop or murmur. ABDOMEN: Very swollen, erythematous, and enlarged scrotum. EXTREMITIES: 2+ pitting edema and cellulitis of the legs. Carlos Yee MD Jan 28, 2019 14:47
--- NOTE | 2019-01-28 15:58 | NUR ---
SURGICAL [employer]ICE [employer]ES REPRESENTAT[employer] FORMER SI:CELLULITIS T 96.8 HR 96 RR 20 B/P 151/64 SATS 97% ON RA NO LABS TODAY IS:DILAUDID 5mg IV NORVASC 5mg GABAPENTIN 900mg CYMBALTA 30mg LASIX 40mg IV KEPPRA 1000mg METHADONE 20mg MED/SURG STATUS
[2019-01-28 16:00] VITALS: BP 144/69
--- NOTE | 2019-01-28 19:12 | NUR ---
HAND-OFF: Report given to MICAELA Hyman.
--- NOTE | 2019-01-28 19:30 | NUR ---
NURSE NOTES: Received patient in no apparent distress. A&OX4. IV site patent and intact, PICC line noted on left upper arm, patent and intact. Pires cath draining well by gravity, yellow urine noted. Dressing noted on left leg, dry and intact. Bed in lowest position. Call light within reach. Will continue to monitor.
[2019-01-28 20:00] VITALS: BP 122/60
[2019-01-28] MEDS: Dyna-Hex 2% Top Sol 2oz TOPIC SCH (21:45)
--- NOTE | 2019-01-28 23:17 | NUR ---
NURSE NOTES: Dressing changed on left lower leg.
[2019-01-29] VITALS (7 sets, daily range): BP systolic 122–146; BP diastolic 58–89
[2019-01-29] MEDS: Albuterol/Ipratropium 3ml neb HHN SCH ×6 (03:00→22:46)
--- NOTE | 2019-01-29 03:45 | Progress Note ---
DATE: 01/28/2019 NOTE: "POOR AUDIO QUALITY" SUBJECTIVE: The patient is a 53-year-old male, rule out cellulitis. This patient has some confusion, some disorganized thought process, and decline in condition below his baseline. He has some confusion, some disorganized thought process, and mood lability worsened by stress of his medical illnesses. He is very irritable and agitated still, but has been anxious and depressed . MENTAL STATUS EXAMINATION: A 53-year-old male. Appearance is disheveled. Attitude, irritable and agitated. Affect, guarded and restricted. Intellect poor. Mood, depressed and anxious. Motor activity, psychomotor agitation. DIAGNOSIS: Major depressive disorder, mild, without psychotic features. PLAN: Treat him with Neurontin 900 milligrams 3 times a day, Cymbalta 30 mg daily, and Ativan 1 every 6 hours p.r.n. anxiety and agitation. Twenty minutes of cognitive behavioral therapy to help him identify his automatic negative thoughts and help him to convert negative thoughts to more positive thoughts to reduce depression, anxiety, mood lability. Chart reviewed. Discussed with staff. Seen and assessed in his room. Laney Mcghee M.D. DR: Ced JOB#: [id number] CC:
[2019-01-29 05:35] LABS: ANION GAP 2 mmol/L (5-15); BLOOD UREA NITROGEN 20 mg/dL (7-18); CALCIUM 8.4 MG/DL (8.5-10.1); CARBON DIOXIDE 38 MMOL/L (21-32); CHLORIDE 101 MMOL/L (98-107); CREATININE 1.1 MG/DL (0.55-1.30); POTASSIUM 3.9 MMOL/L (3.5-5.1); SODIUM 140 MMOL/L (136-145)
--- NOTE | 2019-01-29 07:06 | NUR ---
HAND-OFF: Report given to Hal HINOJOSA.
--- NOTE | 2019-01-29 07:07 | NUR ---
NURSE NOTES: received report from MICAELA Hyman. patient in bed. alert. oriented. verbally responsive. no respiratory distress noted on 3l via NC. c/o pain on scrotum. IV on JADE 24g intact. PICC line on LARRY 2lumen no s/sx of infection. dressing intact. dressing on lt lower extremity intact. bed in the lowest position . call light within reach. will continue to provide plan of care.
--- NOTE | 2019-01-29 08:19 | General Progress Note ---
Assessment/Plan Problem List: (1) Seizures ICD Codes: R56.9 - Unspecified convulsions SNOMED: 35544431 (2) Cerebrovascular accident ICD Codes: I63.9 - Cerebral infarction, unspecified SNOMED: 211072843 (3) Peripheral edema ICD Codes: R60.9 - Edema, unspecified SNOMED: 042323136 (4) Neuropathy ICD Codes: G62.9 - Polyneuropathy, unspecified SNOMED: 336573786 (5) Cellulitis of groin, left ICD Codes: L03.314 - Cellulitis of groin SNOMED: 80904149 (6) Cellulitis ICD Codes: L03.90 - Cellulitis, unspecified SNOMED: 219621930 (7) COPD (chronic obstructive pulmonary disease) ICD Codes: J44.9 - Chronic obstructive pulmonary disease, unspecified SNOMED: 23059658 (8) Morbid obesity ICD Codes: E66.01 - Morbid (severe) obesity due to excess calories SNOMED: 943608218 (9) Abdominal pannus ICD Codes: E65 - Localized adiposity SNOMED: 3343433206792 (10) Abdominal wall cellulitis ICD Codes: L03.311 - Cellulitis of abdominal wall SNOMED: 67593787 (11) UTI (urinary tract infection) ICD Codes: N39.0 - Urinary tract infection, site not specified SNOMED: 47837521 Status: stable, progressing Assessment/Plan: o2 pulm tx abx pt diet pending pannus surgery Subjective Constitutional: Reports: weakness Allergies: Coded Allergies: ASPIRIN (Verified Allergy, Unknown, 07/14/18) KETOROLAC (Verified Allergy, Unknown, 07/14/18) PENICILLINS (Verified Allergy, Unknown, 12/23/18) tolerated Ancef on 08/2018 All Systems: reviewed and negative except above Subjective sleepy calm Objective Last 24 Hour Vital Signs Date Time Temp Pulse Resp B/P (MAP) Pulse Ox O2 Delivery O2 Flow Rate FiO2 01/29/19 06:50 80 20 99 Nasal Cannula 2.0 01/29/19 06:40 96 Nasal Cannula 2.0 01/29/19 06:40 70 18 96 Nasal Cannula 2.0 01/29/19 04:00 97.8 83 19 123/58 (79) 95 01/29/19 03:18 Nasal Cannula 2.0 01/29/19 03:18 Nasal Cannula 2.0 01/29/19 00:00 97.8 99 19 146/89 (108) 95 01/28/19 23:24 82 20 98 Nasal Cannula 2.0 01/28/19 23:14 84 20 90 Room Air 21 01/28/19 21:00 Nasal Cannula 3.0 01/28/19 20:00 98.2 95 19 122/60 (80) 97 01/28/19 19:28 77 20 98 Nasal Cannula 2.0 01/28/19 19:18 94 Nasal Cannula 2.0 01/28/19 19:18 75 20 94 Nasal Cannula 2.0 01/28/19 19:18 75 20 94 Nasal Cannula 2.0 01/28/19 16:00 98.9 82 20 144/69 (94) 97 01/28/19 15:05 81 20 97 Nasal Cannula 2.0 01/28/19 14:52 88 20 92 Nasal Cannula 2.0 01/28/19 12:00 98.5 81 20 154/91 (112) 97 01/28/19 11:33 79 20 99 Nasal Cannula 2.0 01/28/19 11:30 97 Nasal Cannula 2.0 01/28/19 11:23 80 20 97 Nasal Cannula 2.0 01/28/19 09:17 98 155/77 01/28/19 09:00 Nasal Cannula 3.0 Intake and Output 01/28/19 01/29/19 18:59 06:59 Intake Total 720 ml Output Total 2500 ml 700 ml Balance -1780 ml -700 ml Intake Oral 720 ml Output Urine Total 2500 ml 700 ml # Bowel Movements 2 Laboratory Tests 01/29/19 04:12: Sodium Level 140, Potassium Level 3.9, Chloride Level 101, Carbon Dioxide Level 38H, Anion Gap 2L, Blood Urea Nitrogen 20H, Creatinine 1.1, Estimat Glomerular Filtration Rate > 60, Glucose Level 139H, Calcium Level 8.4L Height (Feet): 6 Height (Inches): 0.00 Weight (Pounds): 412 General Appearance: lethargic EENT: normal ENT inspection Neck: normal alignment Cardiovascular: normal peripheral pulses, normal rate, regular rhythm Respiratory/Chest: chest wall non-tender, lungs clear, normal breath sounds Abdomen: normal bowel sounds, soft, distended Extremities: normal inspection Edema: 1+ Arm (L), 1+ Arm (R), 1+ Leg (L), 1+ Leg (R), 1+ Pedal (L), 1+ Pedal ( R), 1+ Generalized Edema: trace edema Neurologic: motor weakness Skin: normal pigmentation, warm/dry Ernesto Nicole DO Jan 29, 2019 08:19
[2019-01-29] MEDS: DULoxetine 30mg cap ORAL SCH (08:34)
[2019-01-29] MEDS: Miconazole 2% Cream 30gm TOPIC SCH ×2 (08:35→17:16)
--- NOTE | 2019-01-29 11:40 | Pulmonology Progress Note ---
Assessment/Plan Problems: (1) Abdominal pannus (2) COPD (chronic obstructive pulmonary disease) (3) ADALBERTO (obstructive sleep apnea) (4) Right heart failure (5) Lumbar spondylosis (6) Morbid obesity Assessment/Plan no new complains surgery scheduled for next Friday Urology put a Pires dc plavix and heparin sq bleeding from scrotum stopped symptomatic treatment local abx as cream continue lasix Dilaudid and Methadone for pain dvt prophylaxis. Subjective ROS Limited/Unobtainable: No Constitutional: Reports: no symptoms HEENT: Repors: no symptoms Respiratory: Reports: no symptoms Allergies: Coded Allergies: ASPIRIN (Verified Allergy, Unknown, 07/14/18) KETOROLAC (Verified Allergy, Unknown, 07/14/18) PENICILLINS (Verified Allergy, Unknown, 12/23/18) tolerated Ancef on 08/2018 Objective Last 24 Hour Vital Signs Date Time Temp Pulse Resp B/P (MAP) Pulse Ox O2 Delivery O2 Flow Rate FiO2 01/29/19 11:05 84 20 100 Nasal Cannula 2.0 01/29/19 10:55 88 20 97 Nasal Cannula 2.0 01/29/19 09:00 Nasal Cannula 3.0 01/29/19 08:35 90 138/59 01/29/19 08:00 98.4 90 20 138/59 (85) 98 01/29/19 06:50 80 20 99 Nasal Cannula 2.0 01/29/19 06:40 96 Nasal Cannula 2.0 01/29/19 06:40 70 18 96 Nasal Cannula 2.0 01/29/19 04:00 97.8 83 19 123/58 (79) 95 01/29/19 03:18 Nasal Cannula 2.0 01/29/19 03:18 Nasal Cannula 2.0 01/29/19 00:00 97.8 99 19 146/89 (108) 95 01/28/19 23:24 82 20 98 Nasal Cannula 2.0 01/28/19 23:14 84 20 90 Room Air 21 01/28/19 21:00 Nasal Cannula 3.0 01/28/19 20:00 98.2 95 19 122/60 (80) 97 01/28/19 19:28 77 20 98 Nasal Cannula 2.0 01/28/19 19:18 94 Nasal Cannula 2.0 01/28/19 19:18 75 20 94 Nasal Cannula 2.0 28 01/28/19 19:18 75 20 94 Nasal Cannula 2.0 28 01/28/19 16:00 98.9 82 20 144/69 (94) 97 01/28/19 15:05 81 20 97 Nasal Cannula 2.0 28 01/28/19 14:52 88 20 92 Nasal Cannula 2.0 28 01/28/19 12:00 98.5 81 20 154/91 (112) 97 Intake and Output 01/28/19 01/29/19 18:59 06:59 Intake Total 720 ml Output Total 2500 ml 700 ml Balance -1780 ml -700 ml Intake Oral 720 ml Output Urine Total 2500 ml 700 ml # Bowel Movements 2 General Appearance: WD/WN HEENT: normocephalic, anicteric Respiratory/Chest: chest wall non-tender, normal breath sounds Cardiovascular: normal peripheral pulses, normal rate Abdomen: normal bowel sounds, no organomegaly, no scars Genitourinary: normal external genitalia Extremities: no clubbing Skin: no lesions Laboratory Tests 01/29/19 04:12: Sodium Level 140, Potassium Level 3.9, Chloride Level 101, Carbon Dioxide Level 38H, Anion Gap 2L, Blood Urea Nitrogen 20H, Creatinine 1.1, Estimat Glomerular Filtration Rate > 60, Glucose Level 139H, Calcium Level 8.4L Current Medications Medications (Trade) Dose Ordered Sig/Luis Route PRN Reason Start Time Stop Time Status Last Admin Dose Admin Acetaminophen (Tylenol) 650 mg Q4H PRN ORAL fever 01/22/19 11:00 02/21/19 10:59 Acetaminophen/ Hydrocodone Bitart ([place] 10/325) 1 tab Q6H PRN ORAL Mild Pain (Pain Scale 1-3) 01/28/19 09:30 02/04/19 09:29 Albuterol/ Ipratropium (Albuterol/ Ipratropium) 3 ml Q4HRT HHN 01/28/19 11:00 02/02/19 10:59 01/29/19 10:57 Amlodipine Besylate (Norvasc) 5 mg DAILY ORAL 01/23/19 09:00 02/22/19 08:59 01/29/19 08:35 Chlorhexidine Gluconate (Ruby-Hex 2%) 1 applic DAILY@2000 TOPIC 01/27/19 20:00 02/26/19 19:59 01/28/19 21:45 Dextrose (Dextrose 50%) 25 ml Q30M PRN IV Hypoglycemia 01/22/19 11:00 02/21/19 10:59 Dextrose (Dextrose 50%) 50 ml Q30M PRN IV hypoglycemia 01/22/19 11:00 02/21/19 10:59 Duloxetine HCl (Cymbalta) 30 mg DAILY ORAL 01/23/19 09:00 02/22/19 08:59 01/29/19 08:34 Furosemide (Lasix) 40 mg BID IV 01/28/19 18:00 02/25/19 08:59 01/29/19 08:34 Gabapentin (Neurontin) 900 mg THREE TIMES A DAY ORAL 01/22/19 13:00 02/21/19 12:59 01/29/19 08:35 Hydromorphone HCl (Dilaudid) 5 mg Q3H PRN IV pain 02-0301/28/19 09:30 02/04/19 09:29 01/29/19 10:02 Levetiracetam (Keppra) 1,000 mg Q8HR ORAL 01/22/19 14:00 02/21/19 13:59 01/29/19 06:09 Lorazepam (Ativan) 1 mg Q6H PRN ORAL For Anxiety 01/23/19 12:45 01/30/19 12:44 Methadone HCl (Methadone HCl) 20 mg EVERY 8 HOURS ORAL 01/28/19 14:00 02/04/19 13:59 01/29/19 06:10 Miconazole Nitrate (Miconazole Nitrate) 1 applic BID TOPIC 01/22/19 14:00 02/21/19 13:59 01/29/19 08:35 Morphine Sulfate (Morphine Sulfate) 2 mg Q4H PRN IVP Moderate Pain (Pain Scale 4-6) 01/28/19 09:30 02/04/19 09:29 Nitroglycerin (Ntg) 0.4 mg Q5M PRN SL Prn Chest Pain 01/22/19 11:00 02/21/19 10:59 Ondansetron HCl (Zofran) 4 mg Q6H PRN IVP Nausea & Vomiting 01/22/19 11:00 02/21/19 10:59 Polyethylene Glycol (Miralax) 17 gm DAILYPRN PRN ORAL Constipation 01/22/19 11:00 02/21/19 10:59 Bill Dixon MD Jan 29, 2019 11:40
--- NOTE | 2019-01-29 11:50 | Infectious Diseases Prog Note ---
Assessment/Plan Assessment/Plan Abx: IV Vancomycin x1 01/22 Fluconazole 01/22- Assessment: R groin swelling and pain- 2ry from Volume overload Sandy intertrigo; improving B/l Leg cellulitis and panniculitis - in the setting of chronic venous stasis, s /p Rx Active infectious cellulitis essentially resolved. Now he has chronic venous stasis and neuropathic pain with poorly healing wounds. Alot off this is due to the severe swelling in his feet but also he is poorly compliant with wound care instructions. Afebrile No leukocytosis Recent seizure episode -had L side weakness and spasticity CVA HTN bipolar disorder w/ psychotic features tobacco abuse anxiety disorder chronic pain CHF seizure disorder COPD morbid obesity Dm2 HTN SNF resident Plan: -Cont Miconazole topical - Needs wound care for healing. -/ SP Fluconzole #5 - 01/07/19 SP IV Dapto d# 14 - 01/06/19 S/P Levofloxacin #7 - 12/25 sp Bactrim #/ and add IV Ancef #/ for cellulitis - Monitor CBC/CMP, temperatures - aspiration precautions - wound care per hospital protocol -Uro eval Subjective Allergies: Coded Allergies: ASPIRIN (Verified Allergy, Unknown, 07/14/18) KETOROLAC (Verified Allergy, Unknown, 07/14/18) PENICILLINS (Verified Allergy, Unknown, 12/23/18) tolerated Ancef on 08/2018 Subjective afebrile no leukocytosis panniculectomy reschedule for Friday Objective Vital Signs Last 24 Hour Vital Signs Date Time Temp Pulse Resp B/P (MAP) Pulse Ox O2 Delivery O2 Flow Rate FiO2 01/29/19 11:05 84 20 100 Nasal Cannula 2.0 01/29/19 10:55 88 20 97 Nasal Cannula 2.0 01/29/19 09:00 Nasal Cannula 3.0 01/29/19 08:35 90 138/59 01/29/19 08:00 98.4 90 20 138/59 (85) 98 01/29/19 06:50 80 20 99 Nasal Cannula 2.0 28 01/29/19 06:40 96 Nasal Cannula 2.0 28 01/29/19 06:40 70 18 96 Nasal Cannula 2.0 01/29/19 04:00 97.8 83 19 123/58 (79) 95 01/29/19 03:18 Nasal Cannula 2.0 01/29/19 03:18 Nasal Cannula 2.0 01/29/19 00:00 97.8 99 19 146/89 (108) 95 01/28/19 23:24 82 20 98 Nasal Cannula 2.0 01/28/19 23:14 84 20 90 Room Air 21 01/28/19 21:00 Nasal Cannula 3.0 01/28/19 20:00 98.2 95 19 122/60 (80) 97 01/28/19 19:28 77 20 98 Nasal Cannula 2.0 01/28/19 19:18 94 Nasal Cannula 2.0 01/28/19 19:18 75 20 94 Nasal Cannula 2.0 01/28/19 19:18 75 20 94 Nasal Cannula 2.0 01/28/19 16:00 98.9 82 20 144/69 (94) 97 01/28/19 15:05 81 20 97 Nasal Cannula 2.0 01/28/19 14:52 88 20 92 Nasal Cannula 2.0 01/28/19 12:00 98.5 81 20 154/91 (112) 97 Height (Feet): 6 Height (Inches): 0.00 Weight (Pounds): 412 Objective General Appearance: alert, moderate distress, obese Head: atraumatic Eyes: bilateral eye normal inspection ENT: normal ENT inspection, hearing grossly normal, normal voice Neck: normal inspection, full range of motion, supple, no bony tend Respiratory: normal inspection, lungs clear, normal breath sounds, no respiratory distress, no retraction, no wheezing Cardiovascular #1: regular rate, rhythm Gastrointestinal: normal inspection, normal bowel sounds, soft, no guarding, no hernia, other - Left lower abdominal area Genitourinary: other - Swollen groin edematous erythematous enlarged scrotum Musculoskeletal: normal inspection, back normal, normal range of motion Neurologic: normal inspection, alert, responsive, speech normal Psychiatric: depressed affect, anxious Skin: normal inspection, normal color, no rash Laboratory Tests Test 01/29/19 04:12 Sodium Level 140 MMOL/L (136-145) Potassium Level 3.9 MMOL/L (3.5-5.1) Chloride Level 101 MMOL/L (98-107) Carbon Dioxide Level 38 MMOL/L (21-32) H Anion Gap 2 mmol/L (5-15) L Blood Urea Nitrogen 20 mg/dL (7-18) H Creatinine 1.1 MG/DL (0.55-1.30) Estimat Glomerular Filtration Rate > 60 mL/min (>60) Glucose Level 139 MG/DL (74-106) H Calcium Level 8.4 MG/DL (8.5-10.1) L Current Medications Medications (Trade) Dose Ordered Sig/Luis Route PRN Reason Start Time Stop Time Status Last Admin Dose Admin Acetaminophen (Tylenol) 650 mg Q4H PRN ORAL fever 01/22/19 11:00 02/21/19 10:59 Acetaminophen/ Hydrocodone Bitart ([place] [address]) 1 tab Q6H PRN ORAL Mild Pain (Pain Scale 1-3) 01/28/19 09:30 02/04/19 09:29 Albuterol/ Ipratropium (Albuterol/ Ipratropium) 3 ml Q4HRT HHN 01/28/19 11:00 02/02/19 10:59 01/29/19 10:57 Amlodipine Besylate (Norvasc) 5 mg DAILY ORAL 01/23/19 09:00 02/22/19 08:59 01/29/19 08:35 Chlorhexidine Gluconate (Ruby-Hex 2%) 1 applic DAILY@1999 TOPIC 01/27/19 20:00 02/26/19 19:59 01/28/19 21:45 Dextrose (Dextrose 50%) 25 ml Q30M PRN IV Hypoglycemia 01/22/19 11:00 02/21/19 10:59 Dextrose (Dextrose 50%) 50 ml Q30M PRN IV hypoglycemia 01/22/19 11:00 02/21/19 10:59 Duloxetine HCl (Cymbalta) 30 mg DAILY ORAL 01/23/19 09:00 02/22/19 08:59 01/29/19 08:34 Furosemide (Lasix) 20 mg EVERY 8 HOURS IV 01/29/19 14:00 02/25/19 08:59 Gabapentin (Neurontin) 900 mg THREE TIMES A DAY ORAL 01/22/19 13:00 02/21/19 12:59 01/29/19 08:35 Hydromorphone HCl (Dilaudid) 5 mg Q3H PRN IV pain 7-01/28/19 09:30 02/04/19 09:29 01/29/19 10:02 Levetiracetam (Keppra) 1,000 mg Q8HR ORAL 01/22/19 14:00 02/21/19 13:59 01/29/19 06:09 Lorazepam (Ativan) 1 mg Q6H PRN ORAL For Anxiety 01/23/19 12:45 01/30/19 12:44 Methadone HCl (Methadone HCl) 20 mg EVERY 8 HOURS ORAL 01/28/19 14:00 02/04/19 13:59 01/29/19 06:10 Miconazole Nitrate (Miconazole Nitrate) 1 applic BID TOPIC 01/22/19 14:00 02/21/19 13:59 01/29/19 08:35 Morphine Sulfate (Morphine Sulfate) 2 mg Q4H PRN IVP Moderate Pain (Pain Scale 4-6) 01/28/19 09:30 02/04/19 09:29 Nitroglycerin (Ntg) 0.4 mg Q5M PRN SL Prn Chest Pain 01/22/19 11:00 02/21/19 10:59 Ondansetron HCl (Zofran) 4 mg Q6H PRN IVP Nausea & Vomiting 01/22/19 11:00 02/21/19 10:59 Polyethylene Glycol (Miralax) 17 gm DAILYPRN PRN ORAL Constipation 01/22/19 11:00 02/21/19 10:59 Alexa Patterson M.D. Jan 29, 2019 11:50
--- NOTE | 2019-01-29 12:30 | Cardiac Electrophysiology PN ---
Assessment/Plan Assessment/Plan 1. Hypertension. Continue amlodipine 5 mg daily and Lasix 40 mg IV daily. EF 60% 2. Severe bilateral lower extremity edema and cellulitis. On IV antibiotic per Dr. Patterson. 3. Abdominal pannus. 4. Chronic obstructive pulmonary disease. 5. Obstructive sleep apnea. 6. Right heart failure. 7. Lumbar spondylosis. 8. Morbid obesity. No further cardiac testing needed prior to Abdominal surgery. Remains at moderate to high risk. DW RN Subjective Subjective No CP or SOB. PICC line and Pires are in for surgery on Friday Objective Last 24 Hour Vital Signs Date Time Temp Pulse Resp B/P (MAP) Pulse Ox O2 Delivery O2 Flow Rate FiO2 01/29/19 11:05 84 20 100 Nasal Cannula 2.0 01/29/19 10:55 88 20 97 Nasal Cannula 2.0 01/29/19 09:00 Nasal Cannula 3.0 01/29/19 08:35 90 138/59 01/29/19 08:00 98.4 90 20 138/59 (85) 98 01/29/19 06:50 80 20 99 Nasal Cannula 2.0 01/29/19 06:40 96 Nasal Cannula 2.0 01/29/19 06:40 70 18 96 Nasal Cannula 2.0 01/29/19 04:00 97.8 83 19 123/58 (79) 95 01/29/19 03:18 Nasal Cannula 2.0 01/29/19 03:18 Nasal Cannula 2.0 01/29/19 00:00 97.8 99 19 146/89 (108) 95 01/28/19 23:24 82 20 98 Nasal Cannula 2.0 01/28/19 23:14 84 20 90 Room Air 01/28/19 21:00 Nasal Cannula 3.0 01/28/19 20:00 98.2 95 19 122/60 (80) 97 01/28/19 19:28 77 20 98 Nasal Cannula 2.0 01/28/19 19:18 94 Nasal Cannula 2.0 01/28/19 19:18 75 20 94 Nasal Cannula 2.0 01/28/19 19:18 75 20 94 Nasal Cannula 2.0 01/28/19 16:00 98.9 82 20 144/69 (94) 97 01/28/19 15:05 81 20 97 Nasal Cannula 2.0 28 01/28/19 14:52 88 20 92 Nasal Cannula 2.0 28 Intake and Output 01/28/19 01/29/19 18:59 06:59 Intake Total 720 ml Output Total 2500 ml 700 ml Balance -1780 ml -700 ml Intake Oral 720 ml Output Urine Total 2500 ml 700 ml # Bowel Movements 2 Laboratory Tests Test 01/29/19 04:12 Sodium Level 140 MMOL/L (136-145) Potassium Level 3.9 MMOL/L (3.5-5.1) Chloride Level 101 MMOL/L (98-107) Carbon Dioxide Level 38 MMOL/L (21-32) H Anion Gap 2 mmol/L (5-15) L Blood Urea Nitrogen 20 mg/dL (7-18) H Creatinine 1.1 MG/DL (0.55-1.30) Estimat Glomerular Filtration Rate > 60 mL/min (>60) Glucose Level 139 MG/DL (74-106) H Calcium Level 8.4 MG/DL (8.5-10.1) L Objective HEAD AND NECK: No JVD. LUNGS: Clear. CARDIOVASCULAR: Regular S1 and S2 with no gallop or murmur. ABDOMEN: Very swollen, erythematous, and enlarged scrotum. EXTREMITIES: 2+ pitting edema and cellulitis of the legs. Carlos Yee MD Jan 29, 2019 12:30
--- NOTE | 2019-01-29 13:45 | NUR ---
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 CELLULITIS VS: BP 138/59, P 90, T 98.0, RR 20, SpO2 95 on 2.0 NC IS:DILAUDID 5mg IV GABAPENTIN 900mg ALBUTEROL 3ml HHN NORVASC 5mg CYMBALTA 30mg MED/SURG STATUS
--- NOTE | 2019-01-29 19:10 | NUR ---
NURSE NOTES: Received a report from MICAELA Hong. Pt is in stable condition. AAOX4. Able to make needs known. On room air. No c/o pain/discomfort. IV is on the R upper arm, patent and intact. He also had PICC line 2 lumen on his L upper arm, is patent and intact. He has a coude cathter, is draining. Bed in lowest position. L lower extremity dressing is dry and intact. Refused the side rails to be padded for seizure precaution. Call light within reach. Will continue to monitor.
--- NOTE | 2019-01-29 19:38 | NUR ---
HAND-OFF: Report given to MICAELA Danielle& MICAELA Kohler.
--- NOTE | 2019-01-29 19:38 | NUR ---
NURSE NOTES: Received report from MICAELA Hong. Patient awake and alertx4, sitting in bed. No complaints of pain at this time. No signs of respiratory distress. Right upper arm IV intact and left upper arm PICC line intact. Bed in lowest position with call light in reach. Patient refuses side rail padding for seizure precautions. Will continue to monitor.
[2019-01-29] MEDS: Dyna-Hex 2% Top Sol 2oz TOPIC SCH (22:13)
--- NOTE | 2019-01-30 02:00 | NUR ---
NURSE NOTES: Performed dressing change for the left lower leg.
[2019-01-30] MEDS: Albuterol/Ipratropium 3ml neb HHN SCH ×6 (03:31→23:32)
[2019-01-30 04:00] VITALS: BP 128/63
--- NOTE | 2019-01-30 05:40 | Pulmonology Progress Note ---
Assessment/Plan Problems: (1) Abdominal pannus (2) COPD (chronic obstructive pulmonary disease) (3) ADALBERTO (obstructive sleep apnea) (4) Right heart failure (5) Lumbar spondylosis (6) Morbid obesity Assessment/Plan check CXR, labs in am no new complains surgery scheduled for next Friday Urology put a Pires dc plavix and heparin sq bleeding from scrotum stopped symptomatic treatment local abx as cream continue lasix Dilaudid and Methadone for pain dvt prophylaxis. Subjective ROS Limited/Unobtainable: No Constitutional: Reports: no symptoms HEENT: Repors: no symptoms Allergies: Coded Allergies: ASPIRIN (Verified Allergy, Unknown, 07/14/18) KETOROLAC (Verified Allergy, Unknown, 07/14/18) PENICILLINS (Verified Allergy, Unknown, 12/23/18) tolerated Ancef on 08/2018 Objective Last 24 Hour Vital Signs Date Time Temp Pulse Resp B/P (MAP) Pulse Ox O2 Delivery O2 Flow Rate FiO2 01/30/19 04:00 97.7 94 19 128/63 (84) 95 01/30/19 03:32 Room Air 01/30/19 03:32 Room Air 01/30/19 02:36 98.3 01/29/19 23:56 98.3 90 18 143/67 (92) 96 01/29/19 22:54 78 20 100 Room Air 01/29/19 22:46 74 20 95 Room Air 01/29/19 21:00 Nasal Cannula 3.0 01/29/19 20:00 98.6 93 18 133/66 (88) 95 01/29/19 19:09 81 20 99 Nasal Cannula 2.0 01/29/19 19:01 94 Room Air 01/29/19 19:01 78 20 94 Room Air 01/29/19 16:00 98.2 89 20 140/76 (97) 96 01/29/19 15:29 90 20 100 Nasal Cannula 2.0 01/29/19 15:15 80 22 96 Nasal Cannula 2.0 01/29/19 12:00 98.0 89 20 122/59 (80) 95 01/29/19 11:05 84 20 100 Nasal Cannula 2.0 01/29/19 10:55 88 20 97 Nasal Cannula 2.0 01/29/19 09:00 Nasal Cannula 3.0 01/29/19 08:35 90 138/59 01/29/19 08:00 98.4 90 20 138/59 (85) 98 01/29/19 06:50 80 20 99 Nasal Cannula 2.0 28 01/29/19 06:40 96 Nasal Cannula 2.0 28 01/29/19 06:40 70 18 96 Nasal Cannula 2.0 28 Intake and Output 01/29/19 01/30/19 19:00 07:00 Intake Total 960 ml Output Total 2000 ml 2600 ml Balance -1040 ml -2600 ml Intake Oral 960 ml Output Urine Total 2000 ml 2600 ml # Voids 5 # Bowel Movements 2 General Appearance: WD/WN HEENT: normocephalic Respiratory/Chest: chest wall non-tender, lungs clear Cardiovascular: normal peripheral pulses, regular rhythm Abdomen: normal bowel sounds, soft, non tender Genitourinary: normal external genitalia Skin: no rash Current Medications Medications (Trade) Dose Ordered Sig/Luis Route PRN Reason Start Time Stop Time Status Last Admin Dose Admin Acetaminophen (Tylenol) 650 mg Q4H PRN ORAL fever 01/22/19 11:00 02/21/19 10:59 Acetaminophen/ Hydrocodone Bitart ([place] 10/325) 1 tab Q6H PRN ORAL Mild Pain (Pain Scale 1-3) 01/28/19 09:30 02/04/19 09:29 Albuterol/ Ipratropium (Albuterol/ Ipratropium) 3 ml Q4HRT HHN 01/28/19 11:00 02/02/19 10:59 01/29/19 22:46 Amlodipine Besylate (Norvasc) 5 mg DAILY ORAL 01/23/19 09:00 02/22/19 08:59 01/29/19 08:35 Chlorhexidine Gluconate (Ruby-Hex 2%) 1 applic DAILY@2000 TOPIC 01/27/19 20:00 02/26/19 19:59 01/29/19 22:13 Dextrose (Dextrose 50%) 25 ml Q30M PRN IV Hypoglycemia 01/22/19 11:00 02/21/19 10:59 Dextrose (Dextrose 50%) 50 ml Q30M PRN IV hypoglycemia 01/22/19 11:00 02/21/19 10:59 Duloxetine HCl (Cymbalta) 30 mg DAILY ORAL 01/23/19 09:00 02/22/19 08:59 01/29/19 08:34 Furosemide (Lasix) 20 mg EVERY 8 HOURS IV 01/29/19 14:00 02/25/19 08:59 01/29/19 22:15 Gabapentin (Neurontin) 900 mg THREE TIMES A DAY ORAL 01/22/19 13:00 02/21/19 12:59 01/29/19 17:14 Hydromorphone HCl (Dilaudid) 5 mg Q3H PRN IV pain 7-01/28/19 09:30 02/04/19 09:29 01/30/19 05:09 Levetiracetam (Keppra) 1,000 mg Q8HR ORAL 01/22/19 14:00 02/21/19 13:59 01/29/19 22:17 Lorazepam (Ativan) 1 mg Q6H PRN ORAL For Anxiety 01/23/19 12:45 01/30/19 12:44 Methadone HCl (Methadone HCl) 20 mg EVERY 8 HOURS ORAL 01/28/19 14:00 02/04/19 13:59 01/29/19 23:33 Miconazole Nitrate (Miconazole Nitrate) 1 applic BID TOPIC 01/22/19 14:00 02/21/19 13:59 01/29/19 17:16 Morphine Sulfate (Morphine Sulfate) 2 mg Q4H PRN IVP Moderate Pain (Pain Scale 4-6) 01/28/19 09:30 02/04/19 09:29 Nitroglycerin (Ntg) 0.4 mg Q5M PRN SL Prn Chest Pain 01/22/19 11:00 02/21/19 10:59 Ondansetron HCl (Zofran) 4 mg Q6H PRN IVP Nausea & Vomiting 01/22/19 11:00 02/21/19 10:59 Polyethylene Glycol (Miralax) 17 gm DAILYPRN PRN ORAL Constipation 01/22/19 11:00 02/21/19 10:59 Bill Dixon MD Jan 30, 2019 05:40
--- NOTE | 2019-01-30 07:31 | NUR ---
HAND-OFF: Report given to MICAELA Brown.
--- NOTE | 2019-01-30 07:33 | NUR ---
NURSE NOTES: Report received from MICAELA Danielle. Patient is resting in bed in stable condition. Alert and oriented x4. No signs and symptoms of acute distress noted at this time. Patient has urinary catheter and draining well . Patient is on 3 liter Nasal cannula. Bed in lowest position with two side rails up. Bed side table and call light within reach. Will follow the plan of care.
--- NOTE | 2019-01-30 07:37 | General Progress Note ---
Assessment/Plan Problem List: (1) Seizures ICD Codes: R56.9 - Unspecified convulsions SNOMED: 06613044 (2) Cerebrovascular accident ICD Codes: I63.9 - Cerebral infarction, unspecified SNOMED: 138948181 (3) Peripheral edema ICD Codes: R60.9 - Edema, unspecified SNOMED: 783094091 (4) Neuropathy ICD Codes: G62.9 - Polyneuropathy, unspecified SNOMED: 153077891 (5) Cellulitis of groin, left ICD Codes: L03.314 - Cellulitis of groin SNOMED: 33525396 (6) Cellulitis ICD Codes: L03.90 - Cellulitis, unspecified SNOMED: 047853117 (7) COPD (chronic obstructive pulmonary disease) ICD Codes: J44.9 - Chronic obstructive pulmonary disease, unspecified SNOMED: 94803457 (8) Morbid obesity ICD Codes: E66.01 - Morbid (severe) obesity due to excess calories SNOMED: 106280745 (9) Abdominal pannus ICD Codes: E65 - Localized adiposity SNOMED: 9847062985056 (10) Abdominal wall cellulitis ICD Codes: L03.311 - Cellulitis of abdominal wall SNOMED: 37731283 (11) UTI (urinary tract infection) ICD Codes: N39.0 - Urinary tract infection, site not specified SNOMED: 69798501 Status: stable, progressing Assessment/Plan: o2 pulm tx abx pt diet pending pannus surgery Subjective Constitutional: Reports: weakness Allergies: Coded Allergies: ASPIRIN (Verified Allergy, Unknown, 07/14/18) KETOROLAC (Verified Allergy, Unknown, 07/14/18) PENICILLINS (Verified Allergy, Unknown, 12/23/18) tolerated Ancef on 08/2018 All Systems: reviewed and negative except above Subjective sleepy calm Objective Last 24 Hour Vital Signs Date Time Temp Pulse Resp B/P (MAP) Pulse Ox O2 Delivery O2 Flow Rate FiO2 01/30/19 07:04 Room Air 01/30/19 07:03 Room Air 01/30/19 07:03 Room Air 01/30/19 04:00 97.7 94 19 128/63 (84) 95 01/30/19 03:32 Room Air 21 01/30/19 03:32 Room Air 21 01/30/19 02:36 98.3 01/29/19 23:56 98.3 90 18 143/67 (92) 96 01/29/19 22:54 78 20 100 Room Air 21 01/29/19 22:46 74 20 95 Room Air 21 01/29/19 21:00 Nasal Cannula 3.0 01/29/19 20:00 98.6 93 18 133/66 (88) 95 01/29/19 19:09 81 20 99 Nasal Cannula 2.0 28 01/29/19 19:01 94 Room Air 21 01/29/19 19:01 78 20 94 Room Air 21 01/29/19 16:00 98.2 89 20 140/76 (97) 96 01/29/19 15:29 90 20 100 Nasal Cannula 2.0 28 01/29/19 15:15 80 22 96 Nasal Cannula 2.0 28 01/29/19 12:00 98.0 89 20 122/59 (80) 95 01/29/19 11:05 84 20 100 Nasal Cannula 2.0 28 01/29/19 10:55 88 20 97 Nasal Cannula 2.0 28 01/29/19 09:00 Nasal Cannula 3.0 01/29/19 08:35 90 138/59 01/29/19 08:00 98.4 90 20 138/59 (85) 98 Intake and Output 01/29/19 01/30/19 19:00 07:00 Intake Total 960 ml 120 ml Output Total 2000 ml 2600 ml Balance -1040 ml -2480 ml Intake Oral 960 ml 120 ml Output Urine Total 2000 ml 2600 ml # Voids 5 # Bowel Movements 2 Laboratory Tests 01/30/19 04:34: White Blood Count [Pending], Red Blood Count [Pending], Hemoglobin [Pending], Hematocrit [Pending], Mean Corpuscular Volume [Pending], Mean Corpuscular Hemoglobin [Pending], Mean Corpuscular Hemoglobin Concent [Pending], Red Cell Distribution Width [Pending], Platelet Count [Pending], Mean Platelet Volume [ Pending], Neutrophils (%) (Auto) [Pending], Lymphocytes (%) (Auto) [Pending], Monocytes (%) (Auto) [Pending], Eosinophils (%) (Auto) [Pending], Basophils (%) (Auto) [Pending], Sodium Level [Pending], Potassium Level [Pending], Chloride Level [Pending], Carbon Dioxide Level [Pending], Blood Urea Nitrogen [Pending], Creatinine [Pending], Estimat Glomerular Filtration Rate [Pending], Glucose Level [Pending], Calcium Level [Pending] Height (Feet): 6 Height (Inches): 0.00 Weight (Pounds): 412 General Appearance: lethargic EENT: normal ENT inspection Neck: normal alignment Cardiovascular: normal peripheral pulses, normal rate, regular rhythm Respiratory/Chest: chest wall non-tender, lungs clear, normal breath sounds Abdomen: normal bowel sounds, soft, distended Extremities: normal inspection Edema: 1+ Arm (L), 1+ Arm (R), 1+ Leg (L), 1+ Leg (R), 1+ Pedal (L), 1+ Pedal ( R), 1+ Generalized Edema: trace edema Neurologic: motor weakness Skin: normal pigmentation, warm/dry Ernesto Nicole DO Jan 30, 2019 07:37
[2019-01-30 07:40] LABS: BASOPHILS % (AUTO) 0.9 % (0.0-2.0); EOSINOPHILS % (AUTO) 6.4 % (0.0-3.0); HEMATOCRIT 31.3 % (42.0-52.0); HEMOGLOBIN 9.9 G/DL (14.2-18.0); LYMPHOCYTES % (AUTO) 24.4 % (20.0-45.0); MEAN CORPUSCULAR VOLUME 95 FL (80-99); MONOCYTES % (AUTO) 7.3 % (1.0-10.0); NEUTROPHILS % (AUTO) 60.9 % (45.0-75.0); PLATELET COUNT 254 K/UL (150-450); RED BLOOD COUNT 3.31 M/UL (4.70-6.10); RED CELL DISTRIBUTION WIDTH 13.5 % (11.6-14.8)
[2019-01-30 08:00] VITALS: BP 133/56
[2019-01-30 08:05] LABS: ANION GAP 2 mmol/L (5-15); BLOOD UREA NITROGEN 17 mg/dL (7-18); CALCIUM 8.2 MG/DL (8.5-10.1); CARBON DIOXIDE 38 MMOL/L (21-32); CHLORIDE 101 MMOL/L (98-107); CREATININE 0.9 MG/DL (0.55-1.30); SODIUM 141 MMOL/L (136-145)
[2019-01-30] MEDS: DULoxetine 30mg cap ORAL SCH (08:10)
[2019-01-30] MEDS: Miconazole 2% Cream 30gm TOPIC SCH ×2 (09:21→17:30)
--- NOTE | 2019-01-30 10:37 | NUR ---
PT note Attempted to see patient for treatment but patient refused.
--- NOTE | 2019-01-30 10:49 | Diagnostic Imaging Report ---
EXAM: XR Chest, 1 View CLINICAL HISTORY: PREOP TECHNIQUE: Frontal view of the chest. COMPARISON: Chest x-ray dated 01/01/19 FINDINGS: Limitations: Exam degraded by large body habitus. Lungs: Pulmonary vascular congestion. The lungs otherwise appear clear. Pleural space: Unremarkable. Heart: Cardiomegaly. Mediastinum: Unremarkable. Bones/joints: Unremarkable. IMPRESSION: 1. Pulmonary vascular congestion. 2. Cardiomegaly.
--- NOTE | 2019-01-30 11:20 | Infectious Diseases Prog Note ---
Assessment/Plan Assessment/Plan Assessment: R groin swelling and pain- 2ry from Volume overload Sandy intertrigo; improving B/l Leg cellulitis and panniculitis - in the setting of chronic venous stasis, s /p Rx Active infectious cellulitis essentially resolved. Now he has chronic venous stasis and neuropathic pain with poorly healing wounds. Alot off this is due to the severe swelling in his feet but also he is poorly compliant with wound care instructions. Afebrile No leukocytosis Recent seizure episode -had L side weakness and spasticity CVA HTN bipolar disorder w/ psychotic features tobacco abuse anxiety disorder chronic pain CHF seizure disorder COPD morbid obesity Dm2 HTN SNF resident Plan: -Cont Miconazole topical - Needs wound care for healing. -/ SP Fluconzole #5 - 01/07/19 SP IV Dapto d# 14 - 01/06/19 S/P Levofloxacin #7 - 12/25 sp Bactrim #4/ and add IV Ancef #3/ for cellulitis - Monitor CBC/CMP, temperatures - aspiration precautions - wound care per hospital protocol -Uro eval Subjective Constitutional: Denies: no symptoms, fever, chills, fatigue, anorexia, drenching sweats, other Allergies: Coded Allergies: ASPIRIN (Verified Allergy, Unknown, 07/14/18) KETOROLAC (Verified Allergy, Unknown, 07/14/18) PENICILLINS (Verified Allergy, Unknown, 12/23/18) tolerated Ancef on 08/2018 Objective Vital Signs Last 24 Hour Vital Signs Date Time Temp Pulse Resp B/P (MAP) Pulse Ox O2 Delivery O2 Flow Rate FiO2 01/30/19 09:00 Nasal Cannula 3.0 01/30/19 08:10 87 133/56 01/30/19 08:00 98.7 87 19 133/56 (81) 95 01/30/19 07:04 Room Air 21 01/30/19 07:03 Room Air 01/30/19 07:03 Room Air 01/30/19 04:00 97.7 94 19 128/63 (84) 95 01/30/19 03:32 Room Air 21 01/30/19 03:32 Room Air 21 01/30/19 02:36 98.3 01/29/19 23:56 98.3 90 18 143/67 (92) 96 01/29/19 22:54 78 20 100 Room Air 21 01/29/19 22:46 74 20 95 Room Air 21 01/29/19 21:00 Nasal Cannula 3.0 01/29/19 20:00 98.6 93 18 133/66 (88) 95 01/29/19 19:09 81 20 99 Nasal Cannula 2.0 28 01/29/19 19:01 94 Room Air 21 01/29/19 19:01 78 20 94 Room Air 21 01/29/19 16:00 98.2 89 20 140/76 (97) 96 01/29/19 15:29 90 20 100 Nasal Cannula 2.0 28 01/29/19 15:15 80 22 96 Nasal Cannula 2.0 28 01/29/19 12:00 98.0 89 20 122/59 (80) 95 Height (Feet): 6 Height (Inches): 0.00 Weight (Pounds): 412 HEENT: mucous membranes moist Respiratory/Chest: normal breath sounds Cardiovascular: no gallop/murmur Abdomen: no mass Laboratory Tests Test 01/30/19 04:34 White Blood Count 8.0 K/UL (4.8-10.8) Red Blood Count 3.31 M/UL (4.70-6.10) L Hemoglobin 9.9 G/DL (14.2-18.0) L Hematocrit 31.3 % (42.0-52.0) L Mean Corpuscular Volume 95 FL (80-99) Mean Corpuscular Hemoglobin 30.0 PG (27.0-31.0) Mean Corpuscular Hemoglobin Concent 31.7 G/DL (32.0-36.0) L Red Cell Distribution Width 13.5 % (11.6-14.8) Platelet Count 254 K/UL (150-450) Mean Platelet Volume 4.4 FL (6.5-10.1) L Neutrophils (%) (Auto) 60.9 % (45.0-75.0) Lymphocytes (%) (Auto) 24.4 % (20.0-45.0) Monocytes (%) (Auto) 7.3 % (1.0-10.0) Eosinophils (%) (Auto) 6.4 % (0.0-3.0) H Basophils (%) (Auto) 0.9 % (0.0-2.0) Sodium Level 141 MMOL/L (136-145) Potassium Level 4.0 MMOL/L (3.5-5.1) Chloride Level 101 MMOL/L (98-107) Carbon Dioxide Level 38 MMOL/L (21-32) H Anion Gap 2 mmol/L (5-15) L Blood Urea Nitrogen 17 mg/dL (7-18) Creatinine 0.9 MG/DL (0.55-1.30) Estimat Glomerular Filtration Rate > 60 mL/min (>60) Glucose Level 96 MG/DL (74-106) Calcium Level 8.2 MG/DL (8.5-10.1) L Current Medications Medications (Trade) Dose Ordered Sig/Luis Route PRN Reason Start Time Stop Time Status Last Admin Dose Admin Acetaminophen (Tylenol) 650 mg Q4H PRN ORAL fever 01/22/19 11:00 02/21/19 10:59 Acetaminophen/ Hydrocodone Bitart ([place] 10/325) 1 tab Q6H PRN ORAL Mild Pain (Pain Scale 1-3) 01/28/19 09:30 02/04/19 09:29 Albuterol/ Ipratropium (Albuterol/ Ipratropium) 3 ml Q4HRT HHN 01/28/19 11:00 02/02/19 10:59 01/29/19 22:46 Amlodipine Besylate (Norvasc) 5 mg DAILY ORAL 01/23/19 09:00 02/22/19 08:59 01/30/19 08:10 Chlorhexidine Gluconate (Ruyb-Hex 2%) 1 applic DAILY@2000 TOPIC 01/27/19 20:00 02/26/19 19:59 01/29/19 22:13 Dextrose (Dextrose 50%) 25 ml Q30M PRN IV Hypoglycemia 01/22/19 11:00 02/21/19 10:59 Dextrose (Dextrose 50%) 50 ml Q30M PRN IV hypoglycemia 01/22/19 11:00 02/21/19 10:59 Duloxetine HCl (Cymbalta) 30 mg DAILY ORAL 01/23/19 09:00 02/22/19 08:59 01/30/19 08:10 Furosemide (Lasix) 20 mg EVERY 8 HOURS IV 01/29/19 14:00 02/25/19 08:59 01/30/19 06:15 Gabapentin (Neurontin) 900 mg THREE TIMES A DAY ORAL 01/22/19 13:00 02/21/19 12:59 01/30/19 08:10 Hydromorphone HCl (Dilaudid) 5 mg Q3H PRN IV pain 7-10 01/28/19 09:30 02/04/19 09:29 01/30/19 11:11 Levetiracetam (Keppra) 1,000 mg Q8HR ORAL 01/22/19 14:00 02/21/19 13:59 01/30/19 06:16 Lorazepam (Ativan) 1 mg Q6H PRN ORAL For Anxiety 01/23/19 12:45 01/30/19 12:44 Methadone HCl (Methadone HCl) 20 mg EVERY 8 HOURS ORAL 01/28/19 14:00 02/04/19 13:59 01/30/19 06:16 Miconazole Nitrate (Miconazole Nitrate) 1 applic BID TOPIC 01/22/19 14:00 02/21/19 13:59 01/30/19 09:21 Morphine Sulfate (Morphine Sulfate) 2 mg Q4H PRN IVP Moderate Pain (Pain Scale 4-6) 01/28/19 09:30 02/04/19 09:29 Nitroglycerin (Ntg) 0.4 mg Q5M PRN SL Prn Chest Pain 01/22/19 11:00 02/21/19 10:59 Ondansetron HCl (Zofran) 4 mg Q6H PRN IVP Nausea & Vomiting 01/22/19 11:00 02/21/19 10:59 Polyethylene Glycol (Miralax) 17 gm DAILYPRN PRN ORAL Constipation 01/22/19 11:00 02/21/19 10:59 Harry Frank MD Jan 30, 2019 11:20
[2019-01-30 12:00] VITALS: BP 127/69
--- NOTE | 2019-01-30 15:21 | Cardiac Electrophysiology PN ---
Assessment/Plan Assessment/Plan 1. Hypertension. Continue amlodipine 5 mg daily and Lasix 20 mg IV q8hr. EF 60 % 2. Severe bilateral lower extremity edema and cellulitis. On IV antibiotic per Dr. Patterson. 3. Abdominal pannus. Resection of pannus on Friday 4. Chronic obstructive pulmonary disease. 5. Obstructive sleep apnea. 6. Right heart failure. 7. Lumbar spondylosis. 8. Morbid obesity. No further cardiac testing needed prior to Abdominal surgery. Remains at moderate to high risk. JESICA RN Subjective Subjective No CP or SOB.Awaiting for surgery on Friday Objective Last 24 Hour Vital Signs Date Time Temp Pulse Resp B/P (MAP) Pulse Ox O2 Delivery O2 Flow Rate FiO2 01/30/19 15:13 82 18 94 Nasal Cannula 2.0 28 01/30/19 12:00 98.8 76 18 127/69 (88) 97 01/30/19 11:24 Nasal Cannula 01/30/19 11:24 Nasal Cannula 01/30/19 09:00 Nasal Cannula 3.0 01/30/19 08:10 87 133/56 01/30/19 08:00 98.7 87 19 133/56 (81) 95 01/30/19 07:04 Room Air 21 01/30/19 07:03 Room Air 01/30/19 07:03 Room Air 01/30/19 04:00 97.7 94 19 128/63 (84) 95 01/30/19 03:32 Room Air 21 01/30/19 03:32 Room Air 21 01/30/19 02:36 98.3 01/29/19 23:56 98.3 90 18 143/67 (92) 96 01/29/19 22:54 78 20 100 Room Air 21 01/29/19 22:46 74 20 95 Room Air 21 01/29/19 21:00 Nasal Cannula 3.0 01/29/19 20:00 98.6 93 18 133/66 (88) 95 01/29/19 19:09 81 20 99 Nasal Cannula 2.0 28 01/29/19 19:01 94 Room Air 21 01/29/19 19:01 78 20 94 Room Air 21 01/29/19 16:00 98.2 89 20 140/76 (97) 96 01/29/19 15:29 90 20 100 Nasal Cannula 2.0 28 Intake and Output 01/29/19 01/30/19 18:59 06:59 Intake Total 960 ml 120 ml Output Total 2000 ml 2600 ml Balance -1040 ml -2480 ml Intake Oral 960 ml 120 ml Output Urine Total 2000 ml 2600 ml # Voids 5 # Bowel Movements 2 Laboratory Tests Test 01/30/19 04:34 White Blood Count 8.0 K/UL (4.8-10.8) Red Blood Count 3.31 M/UL (4.70-6.10) L Hemoglobin 9.9 G/DL (14.2-18.0) L Hematocrit 31.3 % (42.0-52.0) L Mean Corpuscular Volume 95 FL (80-99) Mean Corpuscular Hemoglobin 30.0 PG (27.0-31.0) Mean Corpuscular Hemoglobin Concent 31.7 G/DL (32.0-36.0) L Red Cell Distribution Width 13.5 % (11.6-14.8) Platelet Count 254 K/UL (150-450) Mean Platelet Volume 4.4 FL (6.5-10.1) L Neutrophils (%) (Auto) 60.9 % (45.0-75.0) Lymphocytes (%) (Auto) 24.4 % (20.0-45.0) Monocytes (%) (Auto) 7.3 % (1.0-10.0) Eosinophils (%) (Auto) 6.4 % (0.0-3.0) H Basophils (%) (Auto) 0.9 % (0.0-2.0) Sodium Level 141 MMOL/L (136-145) Potassium Level 4.0 MMOL/L (3.5-5.1) Chloride Level 101 MMOL/L (98-107) Carbon Dioxide Level 38 MMOL/L (21-32) H Anion Gap 2 mmol/L (5-15) L Blood Urea Nitrogen 17 mg/dL (7-18) Creatinine 0.9 MG/DL (0.55-1.30) Estimat Glomerular Filtration Rate > 60 mL/min (>60) Glucose Level 96 MG/DL (74-106) Calcium Level 8.2 MG/DL (8.5-10.1) L Objective HEAD AND NECK: No JVD. LUNGS: Clear. CARDIOVASCULAR: Regular S1 and S2 with no gallop or murmur. ABDOMEN: Very swollen, erythematous, and enlarged scrotum. EXTREMITIES: 2+ pitting edema and cellulitis of the legs. Carlos Yee MD Jan 30, 2019 15:21
[2019-01-30 16:00] VITALS: BP 123/66
--- NOTE | 2019-01-30 16:43 | NUR ---
CASE MANAGEMENT: REVIEW SI: PANNICULITIS . B/L LEG CELLULITIS PANNICULECTOMY SCHEDULED FOR 02/01 98.8 HR 82 RR 18 BP 123/66 SAT 94% 2L/NC H/H 9.9/31.3 IS: LASIX IV Q8HR MORPHINE 2MG IV Q4HR PRN NPO 01/31 FOR SURGERY MED/SURG STATUS DCP: PATIENT IS FROM [facility]
--- NOTE | 2019-01-30 19:29 | NUR ---
HAND-OFF: Report given to MICAELA Marcelo.
--- NOTE | 2019-01-30 19:30 | NUR ---
NURSE NOTES: Received report & pt from MICAELA Brown. Pt lying in bed, a&ox4, on O2 via NC @ 2LPM. No s/s of acute distress & c/o 01/04 pain. Will give PRN pain med when due & pt verbalized understanding. Courle catheter intact; PICC line intact & S/L'd; IV site intact & S/L'd. Bed in lowest position, call light within reach. Will continue to monitor.
[2019-01-30] MEDS: Dyna-Hex 2% Top Sol 2oz TOPIC SCH (19:58)
[2019-01-30 20:00] VITALS: BP 127/69
[2019-01-31] VITALS: BP 140/81
[2019-01-31] MEDS: Albuterol/Ipratropium 3ml neb HHN SCH ×6 (03:40→23:18)
[2019-01-31 04:00] VITALS: BP 145/87
[2019-01-31 07:31] LABS: BASOPHILS % (AUTO) 0.7 % (0.0-2.0); EOSINOPHILS % (AUTO) 7.3 % (0.0-3.0); HEMATOCRIT 31.8 % (42.0-52.0); LYMPHOCYTES % (AUTO) 22.1 % (20.0-45.0); MEAN CORPUSCULAR VOLUME 95 FL (80-99); MONOCYTES % (AUTO) 7.1 % (1.0-10.0); NEUTROPHILS % (AUTO) 62.8 % (45.0-75.0); PLATELET COUNT 249 K/UL (150-450); RED BLOOD COUNT 3.34 M/UL (4.70-6.10); RED CELL DISTRIBUTION WIDTH 14.2 % (11.6-14.8); WHITE BLOOD COUNT 8.2 K/UL (4.8-10.8)
--- NOTE | 2019-01-31 07:36 | NUR ---
NURSE NOTES: Pt resting in bed. denies pain. cellulites BLE. pts on 2L O2 via NC, sat 96-97%. denies cough, no SOB. PICC line LUE, dressing CDI. pt refused side rails to be padded, hx of seizure, education provided, verbalize understanding. fall, seizure and contact iso precaution maintained. bed alarm on, call light within reach. will continue to monitor.
--- NOTE | 2019-01-31 07:37 | NUR ---
HAND-OFF: Report given to MICAELA Gastelum. Rounds done.
[2019-01-31 07:38] LABS: INR 0.9 (0.9-1.1)
--- NOTE | 2019-01-31 07:50 | Pulmonology Progress Note ---
Assessment/Plan Problems: (1) Abdominal pannus (2) COPD (chronic obstructive pulmonary disease) (3) ADALBERTO (obstructive sleep apnea) (4) Right heart failure (5) Lumbar spondylosis (6) Morbid obesity Assessment/Plan pt wants more pain meds CXR reviewed, ROGER, Cardiomegaly labs in am no new complains surgery scheduled for next Friday Urology put a Pires dc plavix and heparin sq bleeding from scrotum stopped symptomatic treatment local abx as cream continue lasix Dilaudid and Methadone for pain dvt prophylaxis. Subjective ROS Limited/Unobtainable: No Constitutional: Reports: no symptoms HEENT: Repors: no symptoms Allergies: Coded Allergies: ASPIRIN (Verified Allergy, Unknown, 07/14/18) KETOROLAC (Verified Allergy, Unknown, 07/14/18) PENICILLINS (Verified Allergy, Unknown, 12/23/18) tolerated Ancef on 08/2018 Objective Last 24 Hour Vital Signs Date Time Temp Pulse Resp B/P (MAP) Pulse Ox O2 Delivery O2 Flow Rate FiO2 01/31/19 07:45 97 Nasal Cannula 3.0 32 01/31/19 07:45 80 18 97 Nasal Cannula 3.0 32 01/31/19 04:00 96.9 86 19 145/87 (106) 95 01/31/19 03:40 Nasal Cannula 3.0 32 01/31/19 03:40 Nasal Cannula 3.0 32 01/31/19 00:00 97.4 100 19 140/81 (100) 95 01/30/19 23:42 86 18 98 Nasal Cannula 3.0 32 01/30/19 23:32 86 18 96 Nasal Cannula 3.0 32 01/30/19 21:00 Nasal Cannula 2.0 01/30/19 20:00 98.5 76 18 127/69 (88) 98 01/30/19 19:44 86 18 98 Nasal Cannula 3.0 32 01/30/19 19:34 79 18 94 Nasal Cannula 3.0 32 01/30/19 19:34 94 Nasal Cannula 3.0 32 01/30/19 16:00 98.8 82 18 123/66 (85) 96 01/30/19 15:21 84 18 98 Nasal Cannula 2.0 28 01/30/19 15:13 82 18 94 Nasal Cannula 2.0 28 01/30/19 12:00 98.8 76 18 127/69 (88) 97 01/30/19 11:24 Nasal Cannula 01/30/19 11:24 Nasal Cannula 01/30/19 09:00 Nasal Cannula 3.0 01/30/19 08:10 87 133/56 01/30/19 08:00 98.7 87 19 133/56 (81) 95 Intake and Output 01/30/19 01/31/19 19:00 07:00 Intake Total 1800 ml 2220 ml Output Total 1800 ml 2750 ml Balance 0 ml -530 ml Intake Oral 120 ml IV Total 300 ml Other 1800 ml 1800 ml Output Urine Total 1800 ml 2750 ml # Voids 1 # Bowel Movements 1 2 Objective General Appearance: WD/WN HEENT: normocephalic Respiratory/Chest: chest wall non-tender,decreased breath sounds Cardiovascular: normal peripheral pulses, normal rate Abdomen: normal bowel sounds, soft, massive fat amount Genitourinary: swollen testicles, Extremities: extreme edema Laboratory Tests 01/31/19 05:45: White Blood Count [Pending], Red Blood Count [Pending], Hemoglobin [Pending], Hematocrit [Pending], Mean Corpuscular Volume [Pending], Mean Corpuscular Hemoglobin [Pending], Mean Corpuscular Hemoglobin Concent [Pending], Red Cell Distribution Width [Pending], Platelet Count [Pending], Mean Platelet Volume [ Pending], Neutrophils (%) (Auto) [Pending], Lymphocytes (%) (Auto) [Pending], Monocytes (%) (Auto) [Pending], Eosinophils (%) (Auto) [Pending], Basophils (%) (Auto) [Pending], Prothrombin Time [Pending], Prothromb Time International Ratio [Pending], Activated Partial Thromboplast Time [Pending], Sodium Level [ Pending], Potassium Level [Pending], Chloride Level [Pending], Carbon Dioxide Level [Pending], Blood Urea Nitrogen [Pending], Creatinine [Pending], Estimat Glomerular Filtration Rate [Pending], Glucose Level [Pending], Calcium Level [ Pending], Phosphorus Level [Pending], Magnesium Level [Pending], Total Bilirubin [Pending], Aspartate Amino Transf (AST/SGOT) [Pending], Alanine Aminotransferase (ALT/SGPT) [Pending], Alkaline Phosphatase [Pending], Total Protein [Pending], Albumin [Pending], Globulin [Pending] Current Medications Medications (Trade) Dose Ordered Sig/Luis Route PRN Reason Start Time Stop Time Status Last Admin Dose Admin Acetaminophen (Tylenol) 650 mg Q4H PRN ORAL fever 01/22/19 11:00 02/21/19 10:59 Acetaminophen/ Hydrocodone Bitart ([place] 10/325) 1 tab Q6H PRN ORAL Mild Pain (Pain Scale 1-3) 01/28/19 09:30 02/04/19 09:29 Albuterol/ Ipratropium (Albuterol/ Ipratropium) 3 ml Q4HRT HHN 01/28/19 11:00 02/02/19 10:59 01/31/19 07:45 Amlodipine Besylate (Norvasc) 5 mg DAILY ORAL 01/23/19 09:00 02/22/19 08:59 01/30/19 08:10 Chlorhexidine Gluconate (Ruby-Hex 2%) 1 applic DAILY@2000 TOPIC 01/27/19 20:00 02/26/19 19:59 01/30/19 19:58 Dextrose (Dextrose 50%) 25 ml Q30M PRN IV Hypoglycemia 01/22/19 11:00 02/21/19 10:59 Dextrose (Dextrose 50%) 50 ml Q30M PRN IV hypoglycemia 01/22/19 11:00 02/21/19 10:59 Duloxetine HCl (Cymbalta) 30 mg DAILY ORAL 01/23/19 09:00 02/22/19 08:59 01/30/19 08:10 Furosemide (Lasix) 20 mg EVERY 8 HOURS IV 01/29/19 14:00 02/25/19 08:59 01/31/19 05:29 Gabapentin (Neurontin) 900 mg THREE TIMES A DAY ORAL 01/22/19 13:00 02/21/19 12:59 01/30/19 17:30 Hydromorphone HCl (Dilaudid) 6 mg Q3H PRN IV pain 7-01/31/19 09:30 02/04/19 09:29 UNV Levetiracetam (Keppra) 1,000 mg Q8HR ORAL 01/22/19 14:00 02/21/19 13:59 01/31/19 05:28 Methadone HCl (Methadone HCl) 20 mg EVERY 6 HOURS ORAL 01/31/19 12:00 02/04/19 13:59 UNV Miconazole Nitrate (Miconazole Nitrate) 1 applic BID TOPIC 01/22/19 14:00 02/21/19 13:59 01/30/19 17:30 Morphine Sulfate (Morphine Sulfate) 2 mg Q4H PRN IVP Moderate Pain (Pain Scale 4-6) 01/28/19 09:30 02/04/19 09:29 Nitroglycerin (Ntg) 0.4 mg Q5M PRN SL Prn Chest Pain 01/22/19 11:00 02/21/19 10:59 Ondansetron HCl (Zofran) 4 mg Q6H PRN IVP Nausea & Vomiting 01/22/19 11:00 02/21/19 10:59 Polyethylene Glycol (Miralax) 17 gm DAILYPRN PRN ORAL Constipation 01/22/19 11:00 02/21/19 10:59 Bill Dixon MD Jan 31, 2019 07:50
[2019-01-31 08:00] VITALS: BP 167/87
[2019-01-31 08:29] LABS: ALANINE AMINOTRANSFERASE 21 U/L (12-78); ALBUMIN 2.5 G/DL (3.4-5.0); ALBUMIN/GLOBULIN RATIO 0.6 (1.0-2.7); ALKALINE PHOSPHATASE 141 U/L (46-116); ANION GAP 3 mmol/L (5-15); ASPARTATE AMINO TRANSFERASE 62 U/L (15-37); BILIRUBIN,TOTAL 0.3 MG/DL (0.2-1.0); BLOOD UREA NITROGEN 20 mg/dL (7-18); CALCIUM 8.6 MG/DL (8.5-10.1); CARBON DIOXIDE 38 MMOL/L (21-32); CHLORIDE 103 MMOL/L (98-107); PHOSPHORUS 4.7 MG/DL (2.5-4.9); POTASSIUM 4.2 MMOL/L (3.5-5.1); SODIUM 144 MMOL/L (136-145)
[2019-01-31] MEDS: DULoxetine 30mg cap ORAL SCH (09:02)
[2019-01-31] MEDS: Miconazole 2% Cream 30gm TOPIC SCH ×2 (09:04→18:03)
[2019-01-31 12:00] VITALS: BP 136/77
--- NOTE | 2019-01-31 13:33 | General Progress Note ---
Assessment/Plan Problem List: (1) Uncontrolled seizures ICD Codes: R56.9 - Unspecified convulsions SNOMED: 45093727 (2) Hyponatremia ICD Codes: E87.1 - Hypo-osmolality and hyponatremia SNOMED: 65834447 (3) Leg pain ICD Codes: M79.606 - Pain in leg, unspecified SNOMED: 26269379 (4) Cellulitis ICD Codes: L03.90 - Cellulitis, unspecified SNOMED: 844359081 (5) COPD (chronic obstructive pulmonary disease) ICD Codes: J44.9 - Chronic obstructive pulmonary disease, unspecified SNOMED: 46495431 (6) Lumbar spondylosis ICD Codes: M47.816 - Spondylosis without myelopathy or radiculopathy, lumbar region SNOMED: 761863176 (7) Right heart failure ICD Codes: I50.810 - Right heart failure, unspecified SNOMED: 091982791 (8) ADALBERTO (obstructive sleep apnea) ICD Codes: G47.33 - Obstructive sleep apnea (adult) (pediatric) SNOMED: 95396061 (9) Neuropathy ICD Codes: G62.9 - Polyneuropathy, unspecified SNOMED: 460111611 (10) Seizures ICD Codes: R56.9 - Unspecified convulsions SNOMED: 25746866 (11) Cerebrovascular accident ICD Codes: I63.9 - Cerebral infarction, unspecified SNOMED: 557400867 (12) Peripheral edema ICD Codes: R60.9 - Edema, unspecified SNOMED: 802436976 (13) UTI (urinary tract infection) ICD Codes: N39.0 - Urinary tract infection, site not specified SNOMED: 07470791 Status: stable, progressing Assessment/Plan: cellulitis sepsis abx per id afebrile reviewed chart and labs and meds Subjective ROS Limited/Unobtainable: Yes Allergies: Coded Allergies: ASPIRIN (Verified Allergy, Unknown, 07/14/18) KETOROLAC (Verified Allergy, Unknown, 07/14/18) PENICILLINS (Verified Allergy, Unknown, 12/23/18) tolerated Ancef on 08/2018 Objective Last 24 Hour Vital Signs Date Time Temp Pulse Resp B/P (MAP) Pulse Ox O2 Delivery O2 Flow Rate FiO2 01/31/19 12:56 98.4 01/31/19 12:00 98.4 90 20 136/77 (96) 98 01/31/19 11:21 88 20 99 Nasal Cannula 3.0 32 01/31/19 11:11 89 20 95 Nasal Cannula 3.0 32 01/31/19 09:03 82 167/89 01/31/19 09:00 Nasal Cannula 2.0 01/31/19 08:00 98.6 82 20 167/87 (113) 99 01/31/19 07:58 84 18 98 Nasal Cannula 3.0 32 01/31/19 07:45 97 Nasal Cannula 3.0 32 01/31/19 07:45 80 18 97 Nasal Cannula 3.0 32 01/31/19 04:00 96.9 86 19 145/87 (106) 95 01/31/19 03:40 Nasal Cannula 3.0 32 01/31/19 03:40 Nasal Cannula 3.0 32 01/31/19 00:00 97.4 100 19 140/81 (100) 95 01/30/19 23:42 86 18 98 Nasal Cannula 3.0 32 01/30/19 23:32 86 18 96 Nasal Cannula 3.0 32 01/30/19 21:00 Nasal Cannula 2.0 01/30/19 20:00 98.5 76 18 127/69 (88) 98 01/30/19 19:44 86 18 98 Nasal Cannula 3.0 32 01/30/19 19:34 79 18 94 Nasal Cannula 3.0 32 01/30/19 19:34 94 Nasal Cannula 3.0 32 01/30/19 16:00 98.8 82 18 123/66 (85) 96 01/30/19 15:21 84 18 98 Nasal Cannula 2.0 28 01/30/19 15:13 82 18 94 Nasal Cannula 2.0 28 Intake and Output 01/30/19 01/31/19 18:59 06:59 Intake Total 1800 ml 2220 ml Output Total 1800 ml 2750 ml Balance 0 ml -530 ml Intake Oral 120 ml IV Total 300 ml Other 1800 ml 1800 ml Output Urine Total 1800 ml 2750 ml # Voids 1 # Bowel Movements 1 2 Laboratory Tests 01/31/19 05:45: White Blood Count 8.2, Red Blood Count 3.34L, Hemoglobin 10.0L, Hematocrit 31.8L , Mean Corpuscular Volume 95, Mean Corpuscular Hemoglobin 30.1, Mean Corpuscular Hemoglobin Concent 31.6L, Red Cell Distribution Width 14.2, Platelet Count 249, Mean Platelet Volume 4.2L, Neutrophils (%) (Auto) 62.8, Lymphocytes (%) (Auto) 22.1, Monocytes (%) (Auto) 7.1, Eosinophils (%) (Auto) 7.3H, Basophils (%) (Auto) 0.7, Prothrombin Time 10.0, Prothromb Time International Ratio 0.9, Activated Partial Thromboplast Time 26, Sodium Level 144, Potassium Level 4.2, Chloride Level 103, Carbon Dioxide Level 38H, Anion Gap 3L, Blood Urea Nitrogen 20H, Creatinine 1.0, Estimat Glomerular Filtration Rate > 60, Glucose Level 112H, Calcium Level 8.6, Phosphorus Level 4.7, Magnesium Level 1.8, Total Bilirubin 0.3, Aspartate Amino Transf (AST/SGOT) 62H , Alanine Aminotransferase (ALT/SGPT) 21, Alkaline Phosphatase 141H, Total Protein 6.4, Albumin 2.5L, Globulin 3.9, Albumin/Globulin Ratio 0.6L Height (Feet): 6 Height (Inches): 0.00 Weight (Pounds): 412 Cardiovascular: normal rate Respiratory/Chest: lungs clear Abdomen: soft Vadim Tang MD Jan 31, 2019 13:33
--- NOTE | 2019-01-31 14:50 | Cardiac Electrophysiology PN ---
Assessment/Plan Assessment/Plan 1. Hypertension. On amlodipine 5 daily and Lasix 20 mg IV q8hr. EF 60% 2. Severe bilateral lower extremity edema and cellulitis. On IV antibiotic per Dr. Patterson. 3. Abdominal pannus. Resection of pannus on Friday 4. Chronic obstructive pulmonary disease. 5. Obstructive sleep apnea. 6. Right heart failure. 7. Lumbar spondylosis. 8. Morbid obesity. No further cardiac testing needed prior to Abdominal surgery. Remains at moderate to high risk. JESICA RN Subjective Subjective No CP or SOB.Awaiting surgery tomorrow Objective Last 24 Hour Vital Signs Date Time Temp Pulse Resp B/P (MAP) Pulse Ox O2 Delivery O2 Flow Rate FiO2 01/31/19 12:56 98.4 01/31/19 12:00 98.4 90 20 136/77 (96) 98 01/31/19 11:21 88 20 99 Nasal Cannula 3.0 32 01/31/19 11:11 89 20 95 Nasal Cannula 3.0 32 01/31/19 09:03 82 167/89 01/31/19 09:00 Nasal Cannula 2.0 01/31/19 08:00 98.6 82 20 167/87 (113) 99 01/31/19 07:58 84 18 98 Nasal Cannula 3.0 32 01/31/19 07:45 97 Nasal Cannula 3.0 32 01/31/19 07:45 80 18 97 Nasal Cannula 3.0 32 01/31/19 04:00 96.9 86 19 145/87 (106) 95 01/31/19 03:40 Nasal Cannula 3.0 32 01/31/19 03:40 Nasal Cannula 3.0 32 01/31/19 00:00 97.4 100 19 140/81 (100) 95 01/30/19 23:42 86 18 98 Nasal Cannula 3.0 32 01/30/19 23:32 86 18 96 Nasal Cannula 3.0 32 01/30/19 21:00 Nasal Cannula 2.0 01/30/19 20:00 98.5 76 18 127/69 (88) 98 01/30/19 19:44 86 18 98 Nasal Cannula 3.0 32 01/30/19 19:34 79 18 94 Nasal Cannula 3.0 32 01/30/19 19:34 94 Nasal Cannula 3.0 32 01/30/19 16:00 98.8 82 18 123/66 (85) 96 01/30/19 15:21 84 18 98 Nasal Cannula 2.0 28 01/30/19 15:13 82 18 94 Nasal Cannula 2.0 28 Intake and Output 01/30/19 01/31/19 18:59 06:59 Intake Total 1800 ml 2220 ml Output Total 1800 ml 2750 ml Balance 0 ml -530 ml Intake Oral 120 ml IV Total 300 ml Other 1800 ml 1800 ml Output Urine Total 1800 ml 2750 ml # Voids 1 # Bowel Movements 1 2 Laboratory Tests Test 01/31/19 05:45 White Blood Count 8.2 K/UL (4.8-10.8) Red Blood Count 3.34 M/UL (4.70-6.10) L Hemoglobin 10.0 G/DL (14.2-18.0) L Hematocrit 31.8 % (42.0-52.0) L Mean Corpuscular Volume 95 FL (80-99) Mean Corpuscular Hemoglobin 30.1 PG (27.0-31.0) Mean Corpuscular Hemoglobin Concent 31.6 G/DL (32.0-36.0) L Red Cell Distribution Width 14.2 % (11.6-14.8) Platelet Count 249 K/UL (150-450) Mean Platelet Volume 4.2 FL (6.5-10.1) L Neutrophils (%) (Auto) 62.8 % (45.0-75.0) Lymphocytes (%) (Auto) 22.1 % (20.0-45.0) Monocytes (%) (Auto) 7.1 % (1.0-10.0) Eosinophils (%) (Auto) 7.3 % (0.0-3.0) H Basophils (%) (Auto) 0.7 % (0.0-2.0) Prothrombin Time 10.0 SEC (9.30-11.50) Prothromb Time International Ratio 0.9 (0.9-1.1) Activated Partial Thromboplast Time 26 SEC (23-33) Sodium Level 144 MMOL/L (136-145) Potassium Level 4.2 MMOL/L (3.5-5.1) Chloride Level 103 MMOL/L (98-107) Carbon Dioxide Level 38 MMOL/L (21-32) H Anion Gap 3 mmol/L (5-15) L Blood Urea Nitrogen 20 mg/dL (7-18) H Creatinine 1.0 MG/DL (0.55-1.30) Estimat Glomerular Filtration Rate > 60 mL/min (>60) Glucose Level 112 MG/DL (74-106) H Calcium Level 8.6 MG/DL (8.5-10.1) Phosphorus Level 4.7 MG/DL (2.5-4.9) Magnesium Level 1.8 MG/DL (1.8-2.4) Total Bilirubin 0.3 MG/DL (0.2-1.0) Aspartate Amino Transf (AST/SGOT) 62 U/L (15-37) H Alanine Aminotransferase (ALT/SGPT) 21 U/L (12-78) Alkaline Phosphatase 141 U/L (46-116) H Total Protein 6.4 G/DL (6.4-8.2) Albumin 2.5 G/DL (3.4-5.0) L Globulin 3.9 g/dL Albumin/Globulin Ratio 0.6 (1.0-2.7) L Objective HEAD AND NECK: No JVD. LUNGS: Clear. CARDIOVASCULAR: Regular S1 and S2 with no gallop or murmur. ABDOMEN: Very swollen, erythematous, and enlarged scrotum. EXTREMITIES: 2+ pitting edema and cellulitis of the legs. Carlos Yee MD Jan 31, 2019 14:50
[2019-01-31 16:00] VITALS: BP 155/68
--- NOTE | 2019-01-31 16:45 | NUR ---
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 BLE EDEMA AND CELLULITIS VS: BP 155/68, P 90, T 98.9, RR 20, SpO2 99 oN 3.0 NC BUN 20, CO2 38, RBC 3.34, H&H 10.0/31.8 IS:METHADONE 20mg DIALUDID 5mg IV LASIX 40mg PLAN PANNICULECTOMY 02/01 MED/SURG STATUS
[2019-01-31 20:00] VITALS: BP 157/79
[2019-01-31] MEDS: Dyna-Hex 2% Top Sol 2oz TOPIC SCH (22:02)
--- NOTE | 2019-01-31 23:35 | NUR ---
NURSE NOTES: Received pt. from MICAELA Gastelum. No acute distress noted. Respiration even and non labored on 2L nc O2. No sob noted. IV line patent and intact on right ua. PICC line patent and intact, dressing intact. Bed in lowest position, wheels locked and alarm on. Call light within reach. All needs attended and met. Will continue plan of care.
[2019-02-01] VITALS (24 sets, daily range): BP systolic 78–154; BP diastolic 34–85
[2019-02-01] MEDS: Albuterol/Ipratropium 3ml neb HHN SCH ×6 (03:35→22:51)
[2019-02-01] MEDS ORDERED: Lidocaine 1% 10mg/ml/Epi 0.005mg/ml 30ml vial INJ ONE (07:05)
[2019-02-01] MEDS ORDERED: Bacitracin 50000 Units Vial ONE (07:05)
[2019-02-01] MEDS ORDERED: Oxymetazoline 0.05% Na Spray 30ml NASAL ONE (07:05)
[2019-02-01] MEDS ORDERED: ProvayBlue 5mg/ml 10ml amp INJ ONE (07:15)
[2019-02-01] MEDS ORDERED: Lidocaine 1% 10mg/ml/EPI 0.01mg/ml 50ml INJ ONE ×9 (07:17→09:08)
--- NOTE | 2019-02-01 07:20 | NUR ---
HAND-OFF: Report given to MICAELA Shearer.
[2019-02-01] MEDS ORDERED: NeoSporin Gu Irrig 1ml Amp IRRIG ONE ×3 (07:22→09:09)
--- NOTE | 2019-02-01 07:32 | Pre-Procedure Note/Attestation ---
Pre-Procedure Note/Attestation Complete Prior to Procedure Planned Procedure: not applicable Procedure Narrative: Panniculectomy Indications for Procedure Pre-Operative Diagnosis: Panniculus with panniculitis and skin breakdown. Attestation I attest that I discussed the nature of the procedure; its benefits; risks and complications; and alternatives (and the risks and benefits of such alternatives ), prior to the procedure, with the patient (or the patient's legal hr representative). I attest that, if there was a reasonable possibility of needing a blood transfusion, the patient (or the patient's legal hr representative) was given the [facility] standardized written summary, pursuant to the [place] Blood Safety Act ([place] Health and Safety Code # 1645, as amended). I attest that I re-evaluated the patient just prior to the surgery and that there has been no change in the patient's H&P, except as documented below: Reggie Roberts MD Feb 01, 2019 07:32
[2019-02-01] MEDS ORDERED: fentaNYL 100 mcg/2 mL IV ONE (07:34)
[2019-02-01] MEDS ORDERED: Midazolam 2mg/2ml Inj ONE ×2 (07:35→14:14)
[2019-02-01] MEDS ORDERED: Succinylcholine 20mg/ml 10ml vial ONE (07:41)
[2019-02-01] MEDS ORDERED: Zemuron 50mg/5ml Inj IV ONE (07:41)
[2019-02-01] MEDS ORDERED: Vancomycin 1gm vial IVPB ONE (07:41)
[2019-02-01] MEDS ORDERED: Bacitracin 50000 Units Vial IRRIG ONE ×2 (07:45→09:09)
[2019-02-01] MEDS ORDERED: NS Irrig 2000ml IRRIG ONE ×2 (07:45→09:08)
[2019-02-01] MEDS ORDERED: Propofol 200mg/20ml IV ONE (08:51)
[2019-02-01] MEDS ORDERED: Lidocaine 1% MPF 10mg/ml 5ml ONE (08:51)
[2019-02-01] MEDS ORDERED: Morphine Sulfate 10mg/ml Inj ONE (11:01)
[2019-02-01] MEDS ORDERED: Sodium Chloride 10ml vial INJ ONE (11:02)
[2019-02-01] MEDS ORDERED: DiphenhydrAMINE 50mg/ml Inj IVP SCH (11:15)
[2019-02-01] MEDS ORDERED: DiphenhydrAMINE 50mg/ml Inj IVP PRN (13:00)
[2019-02-01] MEDS ORDERED: LORazepam Inj 2mg/ml 1ml IV PRN ×3 (13:00→15:45)
[2019-02-01] MEDS ORDERED: Hydromorphone 0.5mg/0.5ml inj IVP PRN (13:00)
[2019-02-01] MEDS ORDERED: Acetaminophen (Non formulary) 100 ML IV ONE (13:00)
--- NOTE | 2019-02-01 13:27 | NUR ---
P.T Note: Pt underwent surgery for Panniculectomy . Hold P.T at this time. Awaiting for surgeon's clearance to resume P.T.
--- NOTE | 2019-02-01 14:32 | Brief Operative Note ---
Immediate Post Operative Note Operative Note Pre-op Diagnosis: Panniculus with panniculitis and skin breakdown. Procedure: Panniculectomy Post-op Diagnosis: same as pre-op Surgeon: Armando Additional Surgeons: Javier Anesthesiologist: Letty Anesthesia: general Specimen: yes Complications: none Condition: stable Fluids: 1 L crystalloid, 250cc hespan, 250cc albumin, 2u prbcs Estimated Blood Loss: volume - 1000 Drains: MARQUEZ - x 3 Implant(s) used?: No Reggie Roberts MD Feb 01, 2019 14:32
--- NOTE | 2019-02-01 14:41 | Infectious Diseases Prog Note ---
Assessment/Plan Assessment/Plan Abx: IV Vancomycin x1 01/22 Fluconazole 01/22- Assessment: 02/01 SP Panniculectomy VDRF (post-op) R groin swelling and pain- 2ry from Volume overload Sandy intertrigo; improving B/l Leg cellulitis and panniculitis - in the setting of chronic venous stasis, s /p Rx Active infectious cellulitis essentially resolved. Now he has chronic venous stasis and neuropathic pain with poorly healing wounds. Alot off this is due to the severe swelling in his feet but also he is poorly compliant with wound care instructions. Afebrile No leukocytosis Recent seizure episode -had L side weakness and spasticity CVA HTN bipolar disorder w/ psychotic features tobacco abuse anxiety disorder chronic pain CHF seizure disorder COPD morbid obesity Dm2 HTN SNF resident Plan: -Continue to monitor off systemic antibiotics -Cont Miconazole topical - Needs wound care for healing. -01/26 SP Fluconzole #5 - 01/07/19 SP IV Dapto d# 14 - 01/06/19 S/P Levofloxacin #7 - 12/25 sp Bactrim #/ and add IV Ancef #/ for cellulitis - Monitor CBC/CMP, temperatures - aspiration precautions - wound care per hospital protocol -ICU/ETT care -plastic sx f/u Subjective Allergies: Coded Allergies: ASPIRIN (Verified Allergy, Unknown, 07/14/18) KETOROLAC (Verified Allergy, Unknown, 07/14/18) PENICILLINS (Verified Allergy, Unknown, 12/23/18) tolerated Ancef on 08/2018 Subjective s/p panniculectomy today trasnferred to ICU after procedure as he is still intubated Objective Vital Signs Last 24 Hour Vital Signs Date Time Temp Pulse Resp B/P (MAP) Pulse Ox O2 Delivery O2 Flow Rate FiO2 02/01/19 11:37 Nasal Cannula 3.0 32 02/01/19 11:36 Nasal Cannula 3.0 32 02/01/19 07:09 91 20 99 Nasal Cannula 3.0 32 02/01/19 07:08 99 Nasal Cannula 3.0 32 02/01/19 06:51 90 20 83 Room Air 21 02/01/19 04:00 99.0 98 20 126/79 (95) 95 02/01/19 03:47 83 18 98 Nasal Cannula 3.0 32 02/01/19 03:35 78 18 97 Nasal Cannula 3.0 32 02/01/19 00:00 98.0 91 20 154/75 (101) 95 01/31/19 23:29 87 18 99 Nasal Cannula 3.0 32 01/31/19 23:18 83 18 96 Nasal Cannula 3.0 32 01/31/19 22:34 98.9 01/31/19 21:00 Nasal Cannula 2.0 01/31/19 20:00 98.9 87 20 157/79 (105) 98 01/31/19 19:41 84 18 99 Nasal Cannula 3.0 32 01/31/19 19:34 98 Nasal Cannula 3.0 32 01/31/19 19:31 88 18 98 Nasal Cannula 3.0 32 01/31/19 16:00 98.9 90 18 155/68 (97) 95 01/31/19 15:19 87 18 98 Nasal Cannula 3.0 32 01/31/19 15:10 84 18 96 Nasal Cannula 3.0 32 Height (Feet): 6 Height (Inches): 0.00 Weight (Pounds): 412 Objective General Appearance: alert, moderate distress, obese Head: atraumatic Eyes: bilateral eye normal inspection ENT: normal ENT inspection, hearing grossly normal, normal voice Neck: normal inspection, full range of motion, supple, no bony tend Respiratory: normal inspection, lungs clear, normal breath sounds, no respiratory distress, no retraction, no wheezing Cardiovascular #1: regular rate, rhythm Gastrointestinal: normal inspection, normal bowel sounds, soft, no guarding, no hernia, other - Left lower abdominal area Genitourinary: other - Swollen groin edematous erythematous enlarged scrotum Musculoskeletal: normal inspection, back normal, normal range of motion Neurologic: normal inspection, alert, responsive, speech normal Psychiatric: depressed affect, anxious Skin: normal inspection, normal color, no rash Current Medications Medications (Trade) Dose Ordered Sig/Luis Route PRN Reason Start Time Stop Time Status Last Admin Dose Admin Acetaminophen (Tylenol) 650 mg Q4H PRN ORAL fever 01/22/19 11:00 02/21/19 10:59 Acetaminophen/ Hydrocodone Bitart ([place] 10/325) 1 tab Q6H PRN ORAL Mild Pain (Pain Scale 1-3) 01/28/19 09:30 02/04/19 09:29 Albuterol/ Ipratropium (Albuterol/ Ipratropium) 3 ml Q4HRT HHN 01/28/19 11:00 02/02/19 10:59 02/01/19 06:58 Amlodipine Besylate (Norvasc) 5 mg DAILY ORAL 01/23/19 09:00 02/22/19 08:59 01/31/19 09:03 Chlorhexidine Gluconate (Ruby-Hex 2%) 1 applic DAILY@1999 TOPIC 01/27/19 20:00 02/26/19 19:59 01/31/19 22:02 Dextrose (Dextrose 50%) 25 ml Q30M PRN IV Hypoglycemia 01/22/19 11:00 02/21/19 10:59 Dextrose (Dextrose 50%) 50 ml Q30M PRN IV hypoglycemia 01/22/19 11:00 02/21/19 10:59 Duloxetine HCl (Cymbalta) 30 mg DAILY ORAL 01/23/19 09:00 02/22/19 08:59 01/31/19 09:02 Furosemide (Lasix) 20 mg EVERY 8 HOURS IV 01/29/19 14:00 02/25/19 08:59 02/01/19 05:58 Gabapentin (Neurontin) 900 mg THREE TIMES A DAY ORAL 01/22/19 13:00 02/21/19 12:59 01/31/19 17:23 Hydromorphone HCl (Dilaudid) 6 mg Q3H PRN IV pain 7-10 01/31/19 08:00 02/04/19 07:59 02/01/19 04:34 Levetiracetam (Keppra) 1,000 mg Q8HR ORAL 01/22/19 14:00 02/21/19 13:59 02/01/19 06:01 Methadone HCl (Methadone HCl) 20 mg EVERY 6 HOURS ORAL 01/31/19 12:00 02/04/19 13:59 02/01/19 05:59 Miconazole Nitrate (Miconazole Nitrate) 1 applic BID TOPIC 01/22/19 14:00 02/21/19 13:59 01/31/19 18:03 Morphine Sulfate (Morphine Sulfate) 2 mg Q4H PRN IVP Moderate Pain (Pain Scale 4-6) 01/28/19 09:30 02/04/19 09:29 Nitroglycerin (Ntg) 0.4 mg Q5M PRN SL Prn Chest Pain 01/22/19 11:00 02/21/19 10:59 Ondansetron HCl (Zofran) 4 mg Q6H PRN IVP Nausea & Vomiting 01/22/19 11:00 02/21/19 10:59 Polyethylene Glycol (Miralax) 17 gm DAILYPRN PRN ORAL Constipation 01/22/19 11:00 02/21/19 10:59 Alexa Patterson M.D. Feb 01, 2019 14:41
--- NOTE | 2019-02-01 14:41 | Consultation ---
History of Present Illness General Date patient seen: Feb 01, 2019 Chief Complaint: Skin Rash/Abscess Reason for Consultation: post op surgical care and critical care Present Illness HPI 53M well known to me from prior visits. currently undergoing recommended and indicated panniculectomy for chronic infected pannus causing multiple admissions and morbidity for patient. please refer to operative report for details. patient will have extensive post op recover and will plan accordingly. will follow closely as he is very high risk for complication which he is aware of. Allergies: Coded Allergies: ASPIRIN (Verified Allergy, Unknown, 07/14/18) KETOROLAC (Verified Allergy, Unknown, 07/14/18) PENICILLINS (Verified Allergy, Unknown, 12/23/18) tolerated Ancef on 08/2018 Medication History Scheduled Amlodipine Besylate* (Amlodipine Besylate*), 5 MG ORAL DAILY, (Reported) Clopidogrel* (Clopidogrel*), 75 MG ORAL DAILY, (Reported) Docusate Sodium* (Docusate Sodium*), 100 MG ORAL DAILY, (Reported) Duloxetine Hcl* (Cymbalta*), 30 MG ORAL DAILY, (Reported) Enoxaparin* (Lovenox*), 40 MG SUBQ DAILY, (Reported) Furosemide* (Lasix*), 10 MG ORAL Q8HR, (Reported) Gabapentin* (Gabapentin*), 900 MG ORAL THREE TIMES A DAY, (Reported) Lactobacillus Acidophilus (Acidophilus), 1 EACH PO BID, (Reported) Levetiracetam (Levetiracetam), 1,000 MG ORAL TID, (Reported) Nitroglycerin (Nitro-Bid*), 1 INCH TOPIC Q8HR, (Reported) Pantoprazole* (Pantoprazole*), 40 MG ORAL BID, (Reported) Sennosides (Senna), 2 TAB PO HS, (Reported) Scheduled PRN Methocarbamol* (Methocarbamol*), 500 MG ORAL Q8HR PRN for For Pain, (Reported) Ondansetron* (Zofran*), 4 MG ORAL Q4HR PRN for Nausea & Vomiting, (Reported) Patient History Limited by: medical condition History Provided By: Patient, Medical Record, PMD Healthcare decision maker Resuscitation status Full Code Advanced Directive on File Past Medical/Surgical History Past Medical/Surgical History: (1) Knee osteomyelits, right (2) Muscle spasticity (3) Cellulitis of groin, left (4) Cellulitis (5) COPD (chronic obstructive pulmonary disease) (6) Morbid obesity (7) Lumbar spondylosis (8) Right heart failure (9) ADALBETRO (obstructive sleep apnea) (10) Abdominal pannus (11) Neuropathy (12) Seizures (13) Cerebrovascular accident (14) Peripheral edema (15) Abdominal wall cellulitis (16) UTI (urinary tract infection) (17) Hyponatremia (18) Leg pain (19) Uncontrolled seizures Review of Systems All Other Systems: negative except mentioned in HPI Physical Exam General Appearance: no apparent distress Lines, tubes and drains: peripheral HEENT: mucous membranes moist Neck: normal inspection Respiratory/Chest: normal breath sounds, no respiratory distress, no accessory muscle use Cardiovascular/Chest: regular rhythm Abdomen: other Extremities: non-tender Skin Exam: warm/dry Neurologic: alert, oriented x 3 Last 24 Hour Vital Signs Date Time Temp Pulse Resp B/P (MAP) Pulse Ox O2 Delivery O2 Flow Rate FiO2 02/01/19 11:37 Nasal Cannula 3.0 32 02/01/19 11:36 Nasal Cannula 3.0 32 02/01/19 07:09 91 20 99 Nasal Cannula 3.0 32 02/01/19 07:08 99 Nasal Cannula 3.0 32 02/01/19 06:51 90 20 83 Room Air 21 02/01/19 04:00 99.0 98 20 126/79 (95) 95 02/01/19 03:47 83 18 98 Nasal Cannula 3.0 32 02/01/19 03:35 78 18 97 Nasal Cannula 3.0 32 02/01/19 00:00 98.0 91 20 154/75 (101) 95 01/31/19 23:29 87 18 99 Nasal Cannula 3.0 32 01/31/19 23:18 83 18 96 Nasal Cannula 3.0 32 01/31/19 22:34 98.9 01/31/19 21:00 Nasal Cannula 2.0 01/31/19 20:00 98.9 87 20 157/79 (105) 98 01/31/19 19:41 84 18 99 Nasal Cannula 3.0 32 01/31/19 19:34 98 Nasal Cannula 3.0 32 01/31/19 19:31 88 18 98 Nasal Cannula 3.0 32 01/31/19 16:00 98.9 90 18 155/68 (97) 95 01/31/19 15:19 87 18 98 Nasal Cannula 3.0 32 01/31/19 15:10 84 18 96 Nasal Cannula 3.0 32 Intake and Output 01/31/19 02/01/19 19:00 07:00 Intake Total 1000 ml Output Total 2200 ml 1800 ml Balance -2200 ml -800 ml Intake Oral 1000 ml Output Urine Total 2200 ml 1800 ml # Bowel Movements 2 1 Height (Feet): 6 Height (Inches): 0.00 Weight (Pounds): 412 Medications Current Medications Medications (Trade) Dose Ordered Sig/Luis Route PRN Reason Start Time Stop Time Status Last Admin Dose Admin Acetaminophen (Tylenol) 650 mg Q4H PRN ORAL fever 01/22/19 11:00 02/21/19 10:59 Acetaminophen/ Hydrocodone Bitart (Linden 10) 1 tab Q6H PRN ORAL Mild Pain (Pain Scale 1-3) 01/28/19 09:30 02/04/19 09:29 Albuterol/ Ipratropium (Albuterol/ Ipratropium) 3 ml Q4HRT HHN 01/28/19 11:00 02/02/19 10:59 02/01/19 06:58 Amlodipine Besylate (Norvasc) 5 mg DAILY ORAL 01/23/19 09:00 02/22/19 08:59 01/31/19 09:03 Chlorhexidine Gluconate (Ruby-Hex 2%) 1 applic DAILY@2000 TOPIC 01/27/19 20:00 02/26/19 19:59 01/31/19 22:02 Dextrose (Dextrose 50%) 25 ml Q30M PRN IV Hypoglycemia 01/22/19 11:00 02/21/19 10:59 Dextrose (Dextrose 50%) 50 ml Q30M PRN IV hypoglycemia 01/22/19 11:00 02/21/19 10:59 Duloxetine HCl (Cymbalta) 30 mg DAILY ORAL 01/23/19 09:00 02/22/19 08:59 01/31/19 09:02 Furosemide (Lasix) 20 mg EVERY 8 HOURS IV 01/29/19 14:00 02/25/19 08:59 02/01/19 05:58 Gabapentin (Neurontin) 900 mg THREE TIMES A DAY ORAL 01/22/19 13:00 02/21/19 12:59 01/31/19 17:23 Hydromorphone HCl (Dilaudid) 6 mg Q3H PRN IV pain 7-10 01/31/19 08:00 02/04/19 07:59 02/01/19 04:34 Levetiracetam (Keppra) 1,000 mg Q8HR ORAL 01/22/19 14:00 02/21/19 13:59 02/01/19 06:01 Methadone HCl (Methadone HCl) 20 mg EVERY 6 HOURS ORAL 01/31/19 12:00 02/04/19 13:59 02/01/19 05:59 Miconazole Nitrate (Miconazole Nitrate) 1 applic BID TOPIC 01/22/19 14:00 02/21/19 13:59 01/31/19 18:03 Morphine Sulfate (Morphine Sulfate) 2 mg Q4H PRN IVP Moderate Pain (Pain Scale 4-6) 01/28/19 09:30 02/04/19 09:29 Nitroglycerin (Ntg) 0.4 mg Q5M PRN SL Prn Chest Pain 01/22/19 11:00 02/21/19 10:59 Ondansetron HCl (Zofran) 4 mg Q6H PRN IVP Nausea & Vomiting 01/22/19 11:00 02/21/19 10:59 Polyethylene Glycol (Miralax) 17 gm DAILYPRN PRN ORAL Constipation 01/22/19 11:00 02/21/19 10:59 Assessment/Plan Problem List: (1) Cellulitis of groin, left ICD Codes: L03.314 - Cellulitis of groin SNOMED: 78080553 (2) Cellulitis Assessment & Plan: chronic cellulitis of pannus surgery has been planned for some time patient will have extensive post operative course will assist with care and recovery -npo -iv fluids -iv abx -wean vent post op -drain care -keep lindsey in place -AM labs will follow with recs ICD Codes: L03.90 - Cellulitis, unspecified SNOMED: 602801308 (3) COPD (chronic obstructive pulmonary disease) ICD Codes: J44.9 - Chronic obstructive pulmonary disease, unspecified SNOMED: 04546395 (4) Morbid obesity ICD Codes: E66.01 - Morbid (severe) obesity due to excess calories SNOMED: 255730091 (5) Lumbar spondylosis ICD Codes: M47.816 - Spondylosis without myelopathy or radiculopathy, lumbar region SNOMED: 724484361 (6) Right heart failure ICD Codes: I50.810 - Right heart failure, unspecified SNOMED: 239574879 (7) ADALBERTO (obstructive sleep apnea) ICD Codes: G47.33 - Obstructive sleep apnea (adult) (pediatric) SNOMED: 02212528 (8) Abdominal pannus ICD Codes: E65 - Localized adiposity SNOMED: 6890609820272 (9) Neuropathy ICD Codes: G62.9 - Polyneuropathy, unspecified SNOMED: 164239440 (10) Seizures ICD Codes: R56.9 - Unspecified convulsions SNOMED: 61840620 (11) Cerebrovascular accident ICD Codes: I63.9 - Cerebral infarction, unspecified SNOMED: 742119096 (12) Peripheral edema ICD Codes: R60.9 - Edema, unspecified SNOMED: 182472917 (13) Abdominal wall cellulitis ICD Codes: L03.311 - Cellulitis of abdominal wall SNOMED: 54862858 (14) UTI (urinary tract infection) ICD Codes: N39.0 - Urinary tract infection, site not specified SNOMED: 40755575 (15) Hyponatremia ICD Codes: E87.1 - Hypo-osmolality and hyponatremia SNOMED: 02040248 (16) Leg pain ICD Codes: M79.606 - Pain in leg, unspecified SNOMED: 97264691 (17) Uncontrolled seizures ICD Codes: R56.9 - Unspecified convulsions SNOMED: 04451682 (18) Muscle spasticity ICD Codes: M62.838 - Other muscle spasm SNOMED: 659417433 (19) Knee osteomyelits, right ICD Codes: M86.9 - Osteomyelitis, unspecified SNOMED: 78147316, 709010842 Gt Fernandez Feb 01, 2019 14:41
--- NOTE | 2019-02-01 14:46 | Immediate Post-Op Evaluation ---
Immediate Post-Op Evalulation Immediate Post-Op Evalulation Procedure: Panniculectomy Date of Evaluation: Feb 01, 2019 Time of Evaluation: 14:45 IV Fluids: 1200 Blood Products: PRBC 2 units, Albumin 250, Hespan 500 Estimated Blood Loss: 1500 Urinary Output: 200 Blood Pressure Systolic: 116 Blood Pressure Diastolic: 58 Pulse Rate: 74 Respiratory Rate: 20 O2 Sat by Pulse Oximetry: 98 Temperature (Fahrenheit): 97.5 Pain Score (1-10): 0 Nausea: No Vomiting: No Complications none Patient Status: no response, ventilated, none Hydration Status: adequate Agustin Saenz MD Feb 01, 2019 14:46
[2019-02-01] MEDS ORDERED: HYDROcodone/Acetamin 10/325 tab ORAL PRN (14:49)
[2019-02-01] MEDS ORDERED: Miralax 17gm pkt ORAL PRN (14:51)
[2019-02-01] MEDS ORDERED: Morphine Sulfate 2mg/ml Inj(IV/IM USE ONLY) IVP PRN (14:51)
[2019-02-01] MEDS ORDERED: Nitroglycerin Subl 0.4mg tab SL PRN (14:51)
[2019-02-01] MEDS ORDERED: Morphine Sulfate 4mg/ml Inj (IV USE ONLY) IVP PRN (15:45)
--- NOTE | 2019-02-01 15:45 | Progress Note ---
DATE: 02/01/2019 SUBJECTIVE: This is 53-year-old patient with cerebrovascular accident. The patient has depression, confusion, and mood lability, decline in cognition below his baseline. That is why, his attending physician has requested daily psychiatric consultation. MENTAL STATUS EXAMINATION: This is a 53-year-old male. Appearance is disheveled. Attitude, irritable and agitated. Affect, guarded, restricted. Intellect poor. Mood depressed and anxious. Motor activity, psychomotor agitation. Attention span is poor. Orientation x2. Speech is low volume, slurred. Thought process, disorganized, illogical. Insight and judgment is poor. DIAGNOSIS: Major depressive disorder, mild, recurrent with psychotic features, rule out dementia with psychosis. PLAN: Treat him with Cymbalta 30 mg daily, Neurontin 900 mg 3 times a day, Ativan 1 every 6 hours p.r.n. anxiety and agitation. Provide him 20 minutes of reality-based supportive psychotherapy. Laney Mcghee M.D. DR: GEENA JOB#: [id number] CC:
--- NOTE | 2019-02-01 15:58 | NUR ---
NURSE NOTES: Report received from DR Saenz and OR nurse. Pt alert and oriented x4, restless at times. Pt sinus rhythm on the monitoring specialist. Pt orally intubated ETT 8, 28 cm lipline, AC 12, TV 600, 50% fiO2, 0 PEEP. Pt kept NPO at this time. Pires noted and intact. Surgical incision on abdomen covered with foam tape with 3 MARQUEZ drains, 1 on left abdomen and 2 on right side with sanguineous output. LARRY PICC flushing well. Propofol connected for agitation. Bilateral soft wrist restraints applied as well. Safety measures in place with bed locked and in lowest position, side rails x3 up and bed alarm on. Will continue to monitor and continue plan of care.
[2019-02-01] MEDS ORDERED: D5NS 1000ml IV ONE (16:02)
--- NOTE | 2019-02-01 16:15 | Progress Note ---
DATE: 01/31/2019 SUBJECTIVE: This is a 53-year-old male with cerebrovascular accident, but he has increased depression, worsened by stress of his medical illness. MENTAL STATUS EXAMINATION: This is a 53-year-old male. Appearance is disheveled. Attitude, irritable and agitated. Affect, guarded and restricted. Intellect poor. Mood, depressed and anxious. Motor activity, psychomotor agitation. Attention span is poor. Orientation x2. Speech is pressured. Thought process, disorganized and illogical. Insight and judgment is poor. DIAGNOSIS: Major depressive disorder, mild, recurrent with psychotic features rule out dementia with psychosis. PLAN: Treat him with Neurontin 900 mg 3 times a day, Cymbalta 30 mg daily, Ativan 1 every 6 hours p.r.n. anxiety and agitation. 20 minutes of cognitive behavioral therapy provided to help him identify his automatic negative thoughts and help him convert his negative thoughts to more positive thoughts to reduce depression, anxiety, and mood lability. Chart reviewed. Discussed with staff. Seen and assessed at bedside. Laney Mcghee M.D. DR: GEENA JOB#: [id number] CC:
[2019-02-01 16:28] LABS: EOSINOPHILS % (AUTO) 1.1 % (0.0-3.0); HEMATOCRIT 27.1 % (42.0-52.0); MEAN CORPUSCULAR VOLUME 93 FL (80-99); MONOCYTES % (AUTO) 5.6 % (1.0-10.0); NEUTROPHILS % (AUTO) 84.4 % (45.0-75.0); PLATELET COUNT 234 K/UL (150-450); RED BLOOD COUNT 2.93 M/UL (4.70-6.10); RED CELL DISTRIBUTION WIDTH 13.2 % (11.6-14.8)
--- NOTE | 2019-02-01 16:39 | NUR ---
[employer] SI:S/P PANNICULECTOMY VS: BP 130/70, P 104, T 98.4, RR 22 on VENT AC 123, TV 600, FiO2 50 WBC 13.0, RBC 2.93, H&H 9.0/27.1 IS:LORAZEPAM 2mg IV BACITRACIN ZINC ICU STATUS
[2019-02-01 16:53] LABS: ALANINE AMINOTRANSFERASE 12 U/L (12-78); ALBUMIN 2.3 G/DL (3.4-5.0); ALBUMIN/GLOBULIN RATIO 0.6 (1.0-2.7); ALKALINE PHOSPHATASE 113 U/L (46-116); ANION GAP 7 mmol/L (5-15); ASPARTATE AMINO TRANSFERASE 38 U/L (15-37); BILIRUBIN,TOTAL 1.1 MG/DL (0.2-1.0); BLOOD UREA NITROGEN 21 mg/dL (7-18); CALCIUM 8.2 MG/DL (8.5-10.1); CARBON DIOXIDE 33 MMOL/L (21-32); CHLORIDE 101 MMOL/L (98-107); CREATININE 1.4 MG/DL (0.55-1.30); PHOSPHORUS 4.8 MG/DL (2.5-4.9); POTASSIUM 4.3 MMOL/L (3.5-5.1); SODIUM 141 MMOL/L (136-145)
[2019-02-01 16:58] LABS: BILIRUBIN,DIRECT 0.3 MG/DL (0.0-0.3)
--- NOTE | 2019-02-01 17:01 | Diagnostic Imaging Report ---
Indication: Post intubation Technique: One view of the chest Comparison: 01/30/2019 Findings: Interim endotracheal intubation, endotracheal tube tip projected at the level the carmen. The heart remains enlarged. Mild interstitial congestive changes persist, stable. Left arm PICC is again demonstrated. Impression: Low position of endotracheal tube, tip projected at the carmen. ICU charge nurse Reshma notified of this critical value at the time of interpretation Other stable findings as described
--- NOTE | 2019-02-01 17:05 | NUR ---
RESPIRATORY NOTE: ABG drawn and results imputed in system. MICAELA Gaspar notified of results.
--- NOTE | 2019-02-01 17:14 | NUR ---
NURSE NOTES: ABG drawn. Sputum sent. ETT to be pulled back 2 cm per radiologist. VSS. No acute distress. Will continue to monitor.
[2019-02-01] MEDS: Miconazole 2% Cream 30gm TOPIC SCH (17:19)
--- NOTE | 2019-02-01 18:22 | NUR ---
NURSE NOTES: Dr Yee here to see pt. No new orders. Will continue to monitor.
--- NOTE | 2019-02-01 18:24 | Cardiac Electrophysiology PN ---
Assessment/Plan Assessment/Plan 1. Hypertension. On amlodipine 5 daily and Lasix 20 mg IV q8hr. EF 60% 2. Severe bilateral lower extremity edema and cellulitis. On IV antibiotic per Dr. Patterson. 3. Abdominal pannus.S/P Resection of pannus today. Tolerated surgery with no cardiac issues. 4. COPD and ADALBERTO. 5. Resp failure on the Vent 6. Right heart failure. 7. Lumbar spondylosis. 8. Morbid obesity. JESICA RN Subjective Subjective Had Penniculectomy today.In ICU on the Vent Objective Last 24 Hour Vital Signs Date Time Temp Pulse Resp B/P (MAP) Pulse Ox O2 Delivery O2 Flow Rate FiO2 02/01/19 18:00 82 19 115/62 (79) 95 02/01/19 17:55 13 113/59 Mechanical Ventilator 02/01/19 17:30 20 113/59 Mechanical Ventilator 02/01/19 17:12 50 02/01/19 17:00 20 113/59 Mechanical Ventilator 02/01/19 17:00 74 17 113/59 (77) 100 02/01/19 16:43 74 14 50 02/01/19 16:15 20 114/60 Mechanical Ventilator 02/01/19 16:00 87 15 114/60 (78) 99 02/01/19 16:00 22 130/70 Mechanical Ventilator 02/01/19 16:00 78 02/01/19 16:00 Mechanical Ventilator 02/01/19 15:43 22 131/70 Mechanical Ventilator 02/01/19 15:20 Nasal Cannula 2.0 02/01/19 15:17 104 21 50 02/01/19 15:15 20 131/70 Mechanical Ventilator 02/01/19 15:07 Nasal Cannula 02/01/19 15:06 Nasal Cannula 02/01/19 15:00 98.4 94 21 131/70 (90) 100 02/01/19 14:56 20 113/99 Mechanical Ventilator 02/01/19 14:46 74 20 98 02/01/19 11:37 Nasal Cannula 3.0 02/01/19 11:36 Nasal Cannula 3.0 32 02/01/19 09:00 Nasal Cannula 2.0 02/01/19 07:09 91 20 99 Nasal Cannula 3.0 32 02/01/19 07:08 99 Nasal Cannula 3.0 32 02/01/19 06:51 90 20 83 Room Air 21 7/8/19 04:00 99.0 98 20 126/79 (95) 95 02/01/19 03:47 83 18 98 Nasal Cannula 3.0 32 02/01/19 03:35 78 18 97 Nasal Cannula 3.0 32 02/01/19 00:00 98.0 91 20 154/75 (101) 95 01/31/19 23:29 87 18 99 Nasal Cannula 3.0 32 01/31/19 23:18 83 18 96 Nasal Cannula 3.0 32 01/31/19 22:34 98.9 01/31/19 21:00 Nasal Cannula 2.0 01/31/19 20:00 98.9 87 20 157/79 (105) 98 01/31/19 19:41 84 18 99 Nasal Cannula 3.0 32 01/31/19 19:34 98 Nasal Cannula 3.0 32 01/31/19 19:31 88 18 98 Nasal Cannula 3.0 32 Intake and Output 01/31/19 02/01/19 18:59 06:59 Intake Total 1000 ml Output Total 2200 ml 1800 ml Balance -2200 ml -800 ml Intake Oral 1000 ml Output Urine Total 2200 ml 1800 ml # Bowel Movements 2 1 Laboratory Tests Test 02/01/19 16:00 02/01/19 16:55 White Blood Count 13.0 K/UL (4.8-10.8) #H Red Blood Count 2.93 M/UL (4.70-6.10) L Hemoglobin 9.0 G/DL (14.2-18.0) L Hematocrit 27.1 % (42.0-52.0) L Mean Corpuscular Volume 93 FL (80-99) Mean Corpuscular Hemoglobin 30.6 PG (27.0-31.0) Mean Corpuscular Hemoglobin Concent 33.1 G/DL (32.0-36.0) Red Cell Distribution Width 13.2 % (11.6-14.8) Platelet Count 234 K/UL (150-450) Mean Platelet Volume 4.3 FL (6.5-10.1) L Neutrophils (%) (Auto) 84.4 % (45.0-75.0) H Lymphocytes (%) (Auto) 8.0 % (20.0-45.0) L Monocytes (%) (Auto) 5.6 % (1.0-10.0) Eosinophils (%) (Auto) 1.1 % (0.0-3.0) Basophils (%) (Auto) 1.0 % (0.0-2.0) Prothrombin Time 10.2 SEC (9.30-11.50) Prothromb Time International Ratio 1.0 (0.9-1.1) Activated Partial Thromboplast Time 23 SEC (23-33) Sodium Level 141 MMOL/L (136-145) Potassium Level 4.3 MMOL/L (3.5-5.1) Chloride Level 101 MMOL/L (98-107) Carbon Dioxide Level 33 MMOL/L (21-32) H Anion Gap 7 mmol/L (5-15) Blood Urea Nitrogen 21 mg/dL (7-18) H Creatinine 1.4 MG/DL (0.55-1.30) H Estimat Glomerular Filtration Rate 52.6 mL/min (>60) Glucose Level 96 MG/DL (74-106) Calcium Level 8.2 MG/DL (8.5-10.1) L Phosphorus Level 4.8 MG/DL (2.5-4.9) Magnesium Level 1.7 MG/DL (1.8-2.4) L Total Bilirubin 1.1 MG/DL (0.2-1.0) H Direct Bilirubin 0.3 MG/DL (0.0-0.3) Aspartate Amino Transf (AST/SGOT) 38 U/L (15-37) H Alanine Aminotransferase (ALT/SGPT) 12 U/L (12-78) Alkaline Phosphatase 113 U/L (46-116) Total Protein 5.9 G/DL (6.4-8.2) L Albumin 2.3 G/DL (3.4-5.0) L Globulin 3.6 g/dL Albumin/Globulin Ratio 0.6 (1.0-2.7) L Triglycerides Level 93 MG/DL (30-150) Arterial Blood pH 7.440 (7.350-7.450) Arterial Blood Partial Pressure CO2 56.0 mmHg (35.0-45.0) *H Arterial Blood Partial Pressure O2 97.3 mmHg (75.0-100.0) Arterial Blood HCO3 37.2 mmol/L (22.0-26.0) H Arterial Blood Oxygen Saturation 96.3 % (95-100) Arterial Blood Base Excess 11.6 (-2-2) *H Don Test Positive Objective HEAD AND NECK: No JVD.Orally intubated LUNGS: Clear. CARDIOVASCULAR: Regular S1 and S2 with no gallop or murmur. ABDOMEN: Very swollen, erythematous, and enlarged scrotum. S/P abdominal surgery with 3 drains EXTREMITIES: 2+ pitting edema and cellulitis of the legs. Carlos Yee MD Feb 01, 2019 18:24
[2019-02-01] MEDS: D5 1/2NS 1,000 ML IV SCH (18:40)
--- NOTE | 2019-02-01 19:11 | NUR ---
HAND-OFF: Report given to Bubba HINOJOSA.
--- NOTE | 2019-02-01 19:13 | NUR ---
NURSE NOTES: Received report from MICAELA Gaspar. Patient is S/P panniculectomy with ETT 7.5 at lip line, vent setting AC12, TV600, FiO2 50%. Left upper arm double lumen PICC intact and clean, running with D5 with 1/2NS @75ml/hr and propofol @30mcg/kg/hr with RASS -2. #1JP output 80ml/bright red color on left ABD and #2JP output 100ml/bright red color on right ABD, #3JP output 90ml/bright red color on right ABD noted. Dressing on abdominal area clean and intact. On bilateral soft wrist bands restraints. Both radial pulses are palpable. Pires cath intact and draining by gravity. Elevated HOB>30. Call light placed in easy reach. Will continue plan of care.
--- NOTE | 2019-02-01 19:14 | NUR ---
NURSE NOTES: Propofol drip titrate down to 25mcg/kg/hr d/t low BP. Will continue to monitor closely.
--- NOTE | 2019-02-01 19:36 | NUR ---
NURSE NOTES: Decreased FiO2 from 50% to 40% by RT. Will continue plan of care.
--- NOTE | 2019-02-01 20:40 | NUR ---
NURSE NOTES: NG tube 18F inserted on right nare. X-ray is ordered for placement. Will continue plan of care.
--- NOTE | 2019-02-01 20:45 | NUR ---
NURSE NOTES: Propofol drip titrate down to 20mcg/kg/hr d/t low BP. Will continue to monitor.
[2019-02-01] MEDS: Vancomycin 1.5gm Premix IVPB SCH (20:49)
[2019-02-01] MEDS: Dyna-Hex 2% Top Sol 2oz TOPIC SCH (20:49)
--- NOTE | 2019-02-01 21:00 | NUR ---
NURSE NOTES: Patient is drowsy with RASS -1. Increased propofol drip from 20mcg/kg/hr to 25mcg/kg/hr.
--- NOTE | 2019-02-01 21:08 | General Progress Note ---
Assessment/Plan Problem List: (1) Uncontrolled seizures ICD Codes: R56.9 - Unspecified convulsions SNOMED: 09906550 (2) Hyponatremia ICD Codes: E87.1 - Hypo-osmolality and hyponatremia SNOMED: 65826666 (3) Leg pain ICD Codes: M79.606 - Pain in leg, unspecified SNOMED: 39126787 (4) Cellulitis ICD Codes: L03.90 - Cellulitis, unspecified SNOMED: 626662086 (5) COPD (chronic obstructive pulmonary disease) ICD Codes: J44.9 - Chronic obstructive pulmonary disease, unspecified SNOMED: 89683559 (6) Lumbar spondylosis ICD Codes: M47.816 - Spondylosis without myelopathy or radiculopathy, lumbar region SNOMED: 317781805 (7) Right heart failure ICD Codes: I50.810 - Right heart failure, unspecified SNOMED: 940629423 (8) ADALBERTO (obstructive sleep apnea) ICD Codes: G47.33 - Obstructive sleep apnea (adult) (pediatric) SNOMED: 91866859 (9) Neuropathy ICD Codes: G62.9 - Polyneuropathy, unspecified SNOMED: 048265069 (10) Seizures ICD Codes: R56.9 - Unspecified convulsions SNOMED: 08261381 (11) Cerebrovascular accident ICD Codes: I63.9 - Cerebral infarction, unspecified SNOMED: 212068731 (12) Peripheral edema ICD Codes: R60.9 - Edema, unspecified SNOMED: 495674471 (13) UTI (urinary tract infection) ICD Codes: N39.0 - Urinary tract infection, site not specified SNOMED: 15379648 Status: stable, progressing Assessment/Plan: cellulitis sepsis copd resp insuff cva no sz today djd afebrile reviewed chart and labs and meds Subjective ROS Limited/Unobtainable: Yes Allergies: Coded Allergies: ASPIRIN (Verified Allergy, Unknown, 07/14/18) KETOROLAC (Verified Allergy, Unknown, 07/14/18) PENICILLINS (Verified Allergy, Unknown, 12/23/18) tolerated Ancef on 08/2018 Objective Last 24 Hour Vital Signs Date Time Temp Pulse Resp B/P (MAP) Pulse Ox O2 Delivery O2 Flow Rate FiO2 02/01/19 21:05 79 17 40 50 02/01/19 19:30 78 12 100 Mechanical Ventilator 40 02/01/19 19:11 77 16 100 Mechanical Ventilator 40 02/01/19 19:11 77 16 40 50 02/01/19 19:00 77 13 115/62 (79) 99 02/01/19 18:15 14 115/62 Mechanical Ventilator 02/01/19 18:00 82 19 115/62 (79) 95 02/01/19 17:55 13 113/59 Mechanical Ventilator 02/01/19 17:30 20 113/59 Mechanical Ventilator 02/01/19 17:12 50 02/01/19 17:00 20 113/59 Mechanical Ventilator 02/01/19 17:00 74 17 113/59 (77) 100 02/01/19 16:43 74 14 50 02/01/19 16:15 20 114/60 Mechanical Ventilator 02/01/19 16:00 87 15 114/60 (78) 99 02/01/19 16:00 22 130/70 Mechanical Ventilator 02/01/19 16:00 78 02/01/19 16:00 Mechanical Ventilator 02/01/19 15:43 22 131/70 Mechanical Ventilator 02/01/19 15:20 Nasal Cannula 2.0 02/01/19 15:17 104 21 50 02/01/19 15:15 20 131/70 Mechanical Ventilator 02/01/19 15:07 Nasal Cannula 02/01/19 15:06 Nasal Cannula 02/01/19 15:00 98.4 94 21 131/70 (90) 100 02/01/19 14:56 20 113/99 Mechanical Ventilator 02/01/19 14:46 74 20 98 02/01/19 11:37 Nasal Cannula 3.0 32 02/01/19 11:36 Nasal Cannula 3.0 32 02/01/19 09:00 Nasal Cannula 2.0 02/01/19 07:09 91 20 99 Nasal Cannula 3.0 32 02/01/19 07:08 99 Nasal Cannula 3.0 32 02/01/19 06:51 90 20 83 Room Air 21 02/01/19 04:00 99.0 98 20 126/79 (95) 95 02/01/19 03:47 83 18 98 Nasal Cannula 3.0 32 02/01/19 03:35 78 18 97 Nasal Cannula 3.0 32 02/01/19 00:00 98.0 91 20 154/75 (101) 95 01/31/19 23:29 87 18 99 Nasal Cannula 3.0 32 01/31/19 23:18 83 18 96 Nasal Cannula 3.0 32 01/31/19 22:34 98.9 Intake and Output 01/31/19 02/01/19 18:59 06:59 Intake Total 1000 ml Output Total 2200 ml 1800 ml Balance -2200 ml -800 ml Intake Oral 1000 ml Output Urine Total 2200 ml 1800 ml # Bowel Movements 2 1 Laboratory Tests 02/01/19 16:00: White Blood Count 13.0#H, Red Blood Count 2.93L, Hemoglobin 9.0L, Hematocrit 27.1L, Mean Corpuscular Volume 93, Mean Corpuscular Hemoglobin 30.6, Mean Corpuscular Hemoglobin Concent 33.1, Red Cell Distribution Width 13.2, Platelet Count 234, Mean Platelet Volume 4.3L, Neutrophils (%) (Auto) 84.4H, Lymphocytes (%) (Auto) 8.0L, Monocytes (%) (Auto) 5.6, Eosinophils (%) (Auto) 1.1, Basophils (%) (Auto) 1.0, Prothrombin Time 10.2, Prothromb Time International Ratio 1.0, Activated Partial Thromboplast Time 23, Sodium Level 141, Potassium Level 4.3, Chloride Level 101, Carbon Dioxide Level 33H, Anion Gap 7, Blood Urea Nitrogen 21H, Creatinine 1.4H, Estimat Glomerular Filtration Rate 52.6, Glucose Level 96, Calcium Level 8.2L, Phosphorus Level 4.8, Magnesium Level 1.7L , Total Bilirubin 1.1H, Direct Bilirubin 0.3, Aspartate Amino Transf (AST/SGOT) 38H, Alanine Aminotransferase (ALT/SGPT) 12, Alkaline Phosphatase 113, Total Protein 5.9L, Albumin 2.3L, Globulin 3.6, Albumin/Globulin Ratio 0.6L, Triglycerides Level 93 02/01/19 16:55: Arterial Blood pH 7.440, Arterial Blood Partial Pressure CO2 56.0*H, Arterial Blood Partial Pressure O2 97.3, Arterial Blood HCO3 37.2H, Arterial Blood Oxygen Saturation 96.3, Arterial Blood Base Excess 11.6*H, Don Test Positive Height (Feet): 6 Height (Inches): 0.00 Weight (Pounds): 412 Cardiovascular: normal rate Respiratory/Chest: chest wall non-tender Abdomen: non tender Vadim Tang MD Feb 01, 2019 21:08
--- NOTE | 2019-02-01 21:15 | NUR ---
NURSE NOTES: Patient is drowsy with RASS -1. Increased propofol drip from 25mcg/kg/hr to 30mcg/kg/hr. Patient is asking for TV remote.
--- NOTE | 2019-02-01 21:30 | NUR ---
NURSE NOTES: Patient met RASS -2. Will continue plan of care.
--- NOTE | 2019-02-01 22:27 | NUR ---
NURSE NOTES: Propofol drip titrate down to 20mcg/kg/hr d/t low BP. Will continue to monitor. Addendum: 02/01/19 at 2228 by SKINNY ARAUJO RN wrong entry time. For 2044
[2019-02-01] MEDS: Aztreonam Inj 1 GM in NS 50 ML IVPB SCH (22:43)
[2019-02-02] VITALS (29 sets, daily range): BP systolic 90–182; BP diastolic 39–111
--- NOTE | 2019-02-02 00:05 | NUR ---
NURSE NOTES: Empty MARQUEZ drain bags and recorded. Repositioned patient and oral care provided.
--- NOTE | 2019-02-02 00:38 | NUR ---
NURSE NOTES: NG tube placement checked and verified with MICAELA Shaffer. Mike and due meds given as ordered.
[2019-02-02] MEDS: Albuterol/Ipratropium 3ml neb HHN SCH ×2 (03:28→07:11)
--- NOTE | 2019-02-02 04:00 | NUR ---
NURSE NOTES: Bed bath ad oral care provided. Will continue plan of care.
[2019-02-02] MEDS ORDERED: Acetaminophen 650mg/20.3ml NG PRN (04:15)
[2019-02-02] MEDS: Aztreonam Inj 1 GM in NS 50 ML IVPB SCH ×3 (05:24→22:17)
[2019-02-02] MEDS: levETIRAcetam 500mg/5ml Liquid NG SCH ×3 (05:25→21:43)
[2019-02-02 05:50] LABS: BASOPHILS % (AUTO) 0.7 % (0.0-2.0); EOSINOPHILS % (AUTO) 1.2 % (0.0-3.0); HEMATOCRIT 25.1 % (42.0-52.0); HEMOGLOBIN 8.5 G/DL (14.2-18.0); LYMPHOCYTES % (AUTO) 13.2 % (20.0-45.0); MEAN CORPUSCULAR VOLUME 92 FL (80-99); NEUTROPHILS % (AUTO) 76.9 % (45.0-75.0); PLATELET COUNT 234 K/UL (150-450); RED BLOOD COUNT 2.72 M/UL (4.70-6.10); RED CELL DISTRIBUTION WIDTH 13.2 % (11.6-14.8); WHITE BLOOD COUNT 12.9 K/UL (4.8-10.8)
[2019-02-02 06:27] LABS: ALANINE AMINOTRANSFERASE 14 U/L (12-78); ALBUMIN 1.8 G/DL (3.4-5.0); ALBUMIN/GLOBULIN RATIO 0.5 (1.0-2.7); ALKALINE PHOSPHATASE 101 U/L (46-116); ANION GAP 3 mmol/L (5-15); ASPARTATE AMINO TRANSFERASE 44 U/L (15-37); BILIRUBIN,TOTAL 0.8 MG/DL (0.2-1.0); BLOOD UREA NITROGEN 23 mg/dL (7-18); CALCIUM 7.9 MG/DL (8.5-10.1); CARBON DIOXIDE 36 MMOL/L (21-32); CHLORIDE 102 MMOL/L (98-107); CREATININE 1.3 MG/DL (0.55-1.30); SODIUM 141 MMOL/L (136-145)
--- NOTE | 2019-02-02 06:57 | 48 Hour Post Anesthesia Eval ---
Post Anesthesia Evaluation Procedure: Panniculectomy Date of Evaluation: Feb 02, 2019 Time of Evaluation: 06:56 Airway: patent Nausea: No Vomiting: No Pain Intensity: 3 Hydration Status: adequate Cardiopulmonary Status: Stable Mental Status/LOC: patient returned to baseline Follow-up Care/Observations: 0 Post-Anesthesia Complications: 0 Follow-up care needed: N/A Andrea Powell MD Feb 02, 2019 06:57
--- NOTE | 2019-02-02 07:00 | NUR ---
RESPIRATORY NOTES: Received Patient on Vent settings ACVC 12, VT 600, FIO2 40%, PEEP +0. Patient has a 7.5 ETT at 28cm at the lip, secured with anchorfast. Bilateral diminished breath sounds noted throughout both lung bonilla. Suction small amount of white secretions Q2 and PRN through ETT. Vent alarms are on and audible. Vent plugged into red outlet. Will continue to monitor throughout the day.
--- NOTE | 2019-02-02 07:23 | NUR ---
HAND-OFF: Report given to MICAELA Hernandez. Endorsed plan of care.
--- NOTE | 2019-02-02 07:30 | NUR ---
NURSE NOTES: Patient on propofol at 30cc/hr, awake and restless. Requesting restraints and itubation tube to be pull up.Will follow up with Md.
--- NOTE | 2019-02-02 07:45 | NUR ---
NURSE NOTES: Propofol remains at 30cc/hr and patient awake.RT made aware to start weaning.
--- NOTE | 2019-02-02 07:51 | NUR ---
NURSE NOTES: Report received from Bubba HINOJOSA.propofol scan delay due to procedure
--- NOTE | 2019-02-02 08:00 | NUR ---
NURSE NOTES: Patient remains on propofol due to agitation.Will start weaning.
--- NOTE | 2019-02-02 08:00 | NUR ---
NURSE NOTES: Patient restless, requesting to have restraint release, weaning protocole started and tolerated well.Will follow up with extubation.ETT 7.5 AC 12 VT 600 Fio2 40%.Noted with fever 100.2 and cooling measure applied.Will continue to monitor.F/C in place draining well.MARQUEZ in place draining pinkish drainage.Ket on close monitoring.
[2019-02-02] MEDS: D5 1/2NS 1,000 ML IV SCH ×2 (08:02→19:43)
--- NOTE | 2019-02-02 08:10 | NUR ---
RESPIRATORY NOTE: Weaning criteria passed. Weaning started at 0810 placed on PS +8 PEEP +0 fio2 40%. Will continue to closely monitor.
[2019-02-02] MEDS: Pantoprazole Inj IV SCH (08:18)
[2019-02-02] MEDS: DULoxetine 30mg cap ORAL SCH (08:18)
[2019-02-02] MEDS: Vancomycin 1.5gm Premix IVPB SCH ×2 (08:19→20:36)
--- NOTE | 2019-02-02 08:19 | NUR ---
NURSE NOTES: Propofol d/c and weaning started.
--- NOTE | 2019-02-02 09:29 | Diagnostic Imaging Report ---
Indication: Post endotracheal tube readjustment Technique: One view of the chest Comparison: 2 and one half hours earlier Findings: Interim retraction of endotracheal tube since the prior exam, tip position now improved approximately 2 cm above the carmen. The heart remains enlarged and there is borderline interstitial congestive change Impression: Improved position of endotracheal tube, now satisfactory This agrees with the preliminary interpretation provided overnight by [facility] service.
--- NOTE | 2019-02-02 09:49 | Diagnostic Imaging Report ---
Indication: Post nasogastric tube placement Technique: Supine view of the abdomen Comparison: none Findings: Body habitus limits evaluation. There is a nasogastric tube in place, tip which projects at the level of the gastric body. Impression: Apparent satisfactory position of nasogastric tube
--- NOTE | 2019-02-02 10:17 | Infectious Diseases Prog Note ---
Assessment/Plan Assessment/Plan Assessment: 02/01 SP Panniculectomy VDRF (post-op) Low grade fever x1 Mild leukocytosis- likely post op -02/01 CXR: Mild interstitial congestive changes persist, stable sp cx normal resp wesley (prelim) R groin swelling and pain- 2ry from Volume overload Sandy intertrigo; improving B/l Leg cellulitis and panniculitis - in the setting of chronic venous stasis, s /p Rx Active infectious cellulitis essentially resolved. Now he has chronic venous stasis and neuropathic pain with poorly healing wounds. Alot off this is due to the severe swelling in his feet but also he is poorly compliant with wound care instructions. Afebrile No leukocytosis Recent seizure episode -had L side weakness and spasticity CVA HTN bipolar disorder w/ psychotic features tobacco abuse anxiety disorder chronic pain CHF seizure disorder COPD morbid obesity Dm2 HTN SNF resident Plan: -Started on empiric IV Vancomycin and Aztreonam #2 per pulm; continue for now pending repeat cultures -Cont Miconazole topical - Needs wound care for healing. -01/26 SP Fluconzole #5 - 01/07/19 SP IV Dapto d# 14 - 01/06/19 S/P Levofloxacin #7 - 12/25 sp Bactrim #4/14 and add IV Ancef #3/ for cellulitis - Monitor CBC/CMP, temperatures - aspiration precautions - wound care per hospital protocol -ICU/ETT care -plastic sx f/u -u/a w/ reflex, Bcx x2 Subjective Allergies: Coded Allergies: ASPIRIN (Verified Allergy, Unknown, 07/14/18) KETOROLAC (Verified Allergy, Unknown, 07/14/18) PENICILLINS (Verified Allergy, Unknown, 12/23/18) tolerated Ancef on 08/2018 Subjective low grade fever, Tm 100.7 x1 mild leukocytosis on ICU, remains intubated was started on IV Vancomycin and Aztreonam Objective Vital Signs Last 24 Hour Vital Signs Date Time Temp Pulse Resp B/P (MAP) Pulse Ox O2 Delivery O2 Flow Rate FiO2 02/02/19 08:35 95 02/02/19 08:34 80 12 40 02/02/19 08:19 84 100/47 02/02/19 08:10 86 19 40 40 02/02/19 08:07 12 92/44 Mechanical Ventilator 40 02/02/19 07:10 80 13 97 Mechanical Ventilator 40 02/02/19 07:08 76 15 40 02/02/19 07:00 83 16 97 Mechanical Ventilator 40 02/02/19 07:00 16 102/46 Mechanical Ventilator 40 02/02/19 07:00 76 15 102/46 (64) 95 02/02/19 06:24 15 105/44 Mechanical Ventilator 40 02/02/19 06:00 77 17 105/44 (64) 94 02/02/19 05:30 77 12 98/48 (65) 98 02/02/19 05:24 12 107/52 Mechanical Ventilator 40 02/02/19 05:18 76 12 40 50 02/02/19 05:00 81 12 107/52 (70) 98 02/02/19 04:30 81 12 108/47 (67) 98 02/02/19 04:24 14 107/59 40 02/02/19 04:15 13 91/45 Mechanical Ventilator 40 02/02/19 04:00 Mechanical Ventilator 02/02/19 04:00 99.9 80 12 91/45 (60) 98 02/02/19 04:00 90 02/02/19 03:37 76 12 99 Mechanical Ventilator 40 02/02/19 03:30 88 13 94/47 (63) 100 02/02/19 03:26 92 18 96 Mechanical Ventilator 40 02/02/19 03:25 92 18 40 50 02/02/19 03:15 17 111/49 Mechanical Ventilator 40 02/02/19 03:00 100.7 87 16 111/49 (69) 100 02/02/19 02:30 79 12 97/43 (61) 95 02/02/19 02:15 16 94/44 Mechanical Ventilator 40 02/02/19 02:00 82 16 94/44 (61) 95 02/02/19 01:30 82 16 90/39 (56) 95 02/02/19 01:24 81 15 40 50 02/02/19 01:15 14 99/44 Mechanical Ventilator 40 02/02/19 01:00 87 15 99/44 (62) 96 02/02/19 01:00 16 99/44 Mechanical Ventilator 40 02/02/19 00:00 Mechanical Ventilator 02/02/19 00:00 99.0 86 16 101/40 (60) 93 7/9/19 00:00 16 101/40 Mechanical Ventilator 40 02/02/19 00:00 77 02/01/19 23:30 85 16 97/40 (59) 93 02/01/19 23:03 77 13 98 Mechanical Ventilator 40 02/01/19 23:00 75 17 92/35 (54) 97 02/01/19 23:00 15 92/35 Mechanical Ventilator 40 02/01/19 22:50 79 14 96 Mechanical Ventilator 40 02/01/19 22:49 79 14 40 50 02/01/19 22:45 78 14 94/34 (54) 95 02/01/19 22:30 80 16 93/39 (57) 96 02/01/19 22:15 84 15 112/70 (84) 97 02/01/19 22:00 82 14 98/41 (60) 97 02/01/19 22:00 14 93/38 Mechanical Ventilator 40 02/01/19 21:45 84 15 93/38 (56) 99 02/01/19 21:30 86 17 97/34 (55) 97 02/01/19 21:30 15 97/34 Mechanical Ventilator 40 02/01/19 21:15 85 15 107/55 (72) 99 02/01/19 21:15 16 107/55 Mechanical Ventilator 40 02/01/19 21:05 79 17 40 50 02/01/19 21:00 79 16 90/36 (54) 98 02/01/19 21:00 15 90/36 Mechanical Ventilator 40 02/01/19 20:56 81 15 78/48 (58) 99 02/01/19 20:52 79 18 93/34 (53) 100 02/01/19 20:47 78 15 84/39 (54) 96 02/01/19 20:45 16 79/40 Mechanical Ventilator 40 02/01/19 20:30 86 17 109/85 (93) 96 02/01/19 20:15 94 17 115/55 (75) 100 02/01/19 20:00 76 02/01/19 20:00 Mechanical Ventilator 02/01/19 20:00 98.4 79 13 133/63 (86) 100 02/01/19 19:57 78 14 110/52 (71) 100 02/01/19 19:45 14 110/52 Mechanical Ventilator 40 02/01/19 19:30 78 12 100 Mechanical Ventilator 40 02/01/19 19:30 15 95/53 Mechanical Ventilator 40 02/01/19 19:15 15 92/52 Mechanical Ventilator 50 02/01/19 19:11 77 16 100 Mechanical Ventilator 40 02/01/19 19:11 77 16 40 50 02/01/19 19:00 77 13 115/62 (79) 99 02/01/19 19:00 15 84/47 Mechanical Ventilator 50 02/01/19 18:15 14 115/62 Mechanical Ventilator 02/01/19 18:00 82 19 115/62 (79) 95 02/01/19 17:55 13 113/59 Mechanical Ventilator 02/01/19 17:30 20 113/59 Mechanical Ventilator 02/01/19 17:12 50 02/01/19 17:00 20 113/59 Mechanical Ventilator 02/01/19 17:00 74 17 113/59 (77) 100 02/01/19 16:43 74 14 50 02/01/19 16:15 20 114/60 Mechanical Ventilator 02/01/19 16:00 87 15 114/60 (78) 99 02/01/19 16:00 22 130/70 Mechanical Ventilator 02/01/19 16:00 78 02/01/19 16:00 Mechanical Ventilator 02/01/19 15:43 22 131/70 Mechanical Ventilator 02/01/19 15:20 Nasal Cannula 2.0 02/01/19 15:17 104 21 50 02/01/19 15:15 20 131/70 Mechanical Ventilator 02/01/19 15:07 Nasal Cannula 02/01/19 15:06 Nasal Cannula 02/01/19 15:00 98.4 94 21 131/70 (90) 100 02/01/19 14:56 20 113/99 Mechanical Ventilator 02/01/19 14:46 74 20 98 02/01/19 11:37 Nasal Cannula 3.0 32 02/01/19 11:36 Nasal Cannula 3.0 32 Height (Feet): 6 Height (Inches): 0.00 Weight (Pounds): 412 Objective General Appearance: alert, moderate distress, obese Head: atraumatic Eyes: bilateral eye normal inspection ENT: normal ENT inspection, hearing grossly normal, normal voice Neck: normal inspection, full range of motion, supple, no bony tend Respiratory: normal inspection, lungs clear, normal breath sounds, no respiratory distress, no retraction, no wheezing Cardiovascular #1: regular rate, rhythm Gastrointestinal: normal inspection, normal bowel sounds, soft, no guarding, no hernia, other - Left lower abdominal area Genitourinary: other - Swollen groin edematous erythematous enlarged scrotum Musculoskeletal: normal inspection, back normal, normal range of motion Neurologic: normal inspection, alert, responsive, speech normal Psychiatric: depressed affect, anxious Skin: normal inspection, normal color, no rash Microbiology Date/Time Source Procedure Growth Status 02/01/19 17:00 Sputum Gram Stain Pending Resulted 02/01/19 17:00 Sputum Sputum Culture - Preliminary NORMAL UPPER RESPIRATORY WESLEY AT 24 ... Resulted Laboratory Tests Test 02/01/19 16:00 02/01/19 16:55 02/02/19 05:00 02/02/19 07:50 White Blood Count 13.0 K/UL (4.8-10.8) #H 12.9 K/UL (4.8-10.8) H Red Blood Count 2.93 M/UL (4.70-6.10) L 2.72 M/UL (4.70-6.10) L Hemoglobin 9.0 G/DL (14.2-18.0) L 8.5 G/DL (14.2-18.0) L Hematocrit 27.1 % (42.0-52.0) L 25.1 % (42.0-52.0) L Mean Corpuscular Volume 93 FL (80-99) 92 FL (80-99) Mean Corpuscular Hemoglobin 30.6 PG (27.0-31.0) 31.2 PG (27.0-31.0) H Mean Corpuscular Hemoglobin Concent 33.1 G/DL (32.0-36.0) 33.8 G/DL (32.0-36.0) Red Cell Distribution Width 13.2 % (11.6-14.8) 13.2 % (11.6-14.8) Platelet Count 234 K/UL (150-450) 234 K/UL (150-450) Mean Platelet Volume 4.3 FL (6.5-10.1) L 4.6 FL (6.5-10.1) L Neutrophils (%) (Auto) 84.4 % (45.0-75.0) H 76.9 % (45.0-75.0) H Lymphocytes (%) (Auto) 8.0 % (20.0-45.0) L 13.2 % (20.0-45.0) L Monocytes (%) (Auto) 5.6 % (1.0-10.0) 8.0 % (1.0-10.0) Eosinophils (%) (Auto) 1.1 % (0.0-3.0) 1.2 % (0.0-3.0) Basophils (%) (Auto) 1.0 % (0.0-2.0) 0.7 % (0.0-2.0) Prothrombin Time 10.2 SEC (9.30-11.50) Prothromb Time International Ratio 1.0 (0.9-1.1) Activated Partial Thromboplast Time 23 SEC (23-33) Sodium Level 141 MMOL/L (136-145) 141 MMOL/L (136-145) Potassium Level 4.3 MMOL/L (3.5-5.1) 4.0 MMOL/L (3.5-5.1) Chloride Level 101 MMOL/L (98-107) 102 MMOL/L (98-107) Carbon Dioxide Level 33 MMOL/L (21-32) H 36 MMOL/L (21-32) H Anion Gap 7 mmol/L (5-15) 3 mmol/L (5-15) L Blood Urea Nitrogen 21 mg/dL (7-18) H 23 mg/dL (7-18) H Creatinine 1.4 MG/DL (0.55-1.30) H 1.3 MG/DL (0.55-1.30) Estimat Glomerular Filtration Rate 52.6 mL/min (>60) 57.3 mL/min (>60) Glucose Level 96 MG/DL (74-106) 114 MG/DL (74-106) H Calcium Level 8.2 MG/DL (8.5-10.1) L 7.9 MG/DL (8.5-10.1) L Phosphorus Level 4.8 MG/DL (2.5-4.9) 4.0 MG/DL (2.5-4.9) Magnesium Level 1.7 MG/DL (1.8-2.4) L 1.6 MG/DL (1.8-2.4) L Total Bilirubin 1.1 MG/DL (0.2-1.0) H 0.8 MG/DL (0.2-1.0) Direct Bilirubin 0.3 MG/DL (0.0-0.3) Aspartate Amino Transf (AST/SGOT) 38 U/L (15-37) H 44 U/L (15-37) H Alanine Aminotransferase (ALT/SGPT) 12 U/L (12-78) 14 U/L (12-78) Alkaline Phosphatase 113 U/L (46-116) 101 U/L (46-116) Total Protein 5.9 G/DL (6.4-8.2) L 5.5 G/DL (6.4-8.2) L Albumin 2.3 G/DL (3.4-5.0) L 1.8 G/DL (3.4-5.0) L Globulin 3.6 g/dL 3.7 g/dL Albumin/Globulin Ratio 0.6 (1.0-2.7) L 0.5 (1.0-2.7) L Triglycerides Level 93 MG/DL (30-150) Arterial Blood pH 7.440 (7.350-7.450) 7.467 (7.350-7.450) Arterial Blood Partial Pressure CO2 56.0 mmHg (35.0-45.0) *H 52.2 mmHg (35.0-45.0) H Arterial Blood Partial Pressure O2 97.3 mmHg (75.0-100.0) 74.6 mmHg (75.0-100.0) L Arterial Blood HCO3 37.2 mmol/L (22.0-26.0) H 36.9 mmol/L (22.0-26.0) H Arterial Blood Oxygen Saturation 96.3 % (95-100) 94.3 % (95-100) L Arterial Blood Base Excess 11.6 (-2-2) *H 11.7 (-2-2) *H Don Test Positive Positive Test 02/02/19 09:10 Arterial Blood pH 7.469 (7.350-7.450) Arterial Blood Partial Pressure CO2 51.0 mmHg (35.0-45.0) H Arterial Blood Partial Pressure O2 79.6 mmHg (75.0-100.0) Arterial Blood HCO3 36.2 mmol/L (22.0-26.0) H Arterial Blood Oxygen Saturation 95.3 % (95-100) Arterial Blood Base Excess 11.2 (-2-2) *H Don Test Positive Current Medications Medications (Trade) Dose Ordered Sig/Luis Route PRN Reason Start Time Stop Time Status Last Admin Dose Admin Acetaminophen (Tylenol) 650 mg Q4H PRN NG fever 02/02/19 04:15 03/04/19 04:14 Acetaminophen/ Hydrocodone Bitart ([place] 10/325) 1 tab Q6H PRN ORAL Mild Pain (Pain Scale 1-3) 02/01/19 14:49 02/08/19 14:48 Albuterol/ Ipratropium (Albuterol/ Ipratropium) 3 ml Q4HRT HHN 02/01/19 15:00 02/02/19 10:59 02/02/19 07:11 Amlodipine Besylate (Norvasc) 5 mg DAILY ORAL 02/02/19 09:00 02/22/19 08:59 Aztreonam 1 gm/ Sodium Chloride 50 ml @ 100 mls/hr EVERY 8 HOURS IVPB 02/01/19 22:00 02/08/19 21:59 02/02/19 05:24 Chlorhexidine Gluconate (Ruby-Hex 2%) 1 applic DAILY@2000 TOPIC 02/01/19 20:00 02/26/19 19:59 02/01/19 20:49 Dextrose (Dextrose 50%) 25 ml Q30M PRN IV Hypoglycemia 02/01/19 15:00 02/21/19 10:59 Dextrose (Dextrose 50%) 50 ml Q30M PRN IV hypoglycemia 02/01/19 15:00 02/21/19 10:59 Dextrose/Sodium Chloride 1,000 ml @ 75 mls/hr [id number] IV 02/01/19 18:40 03/03/19 18:39 02/02/19 08:02 Duloxetine HCl (Cymbalta) 30 mg DAILY ORAL 02/02/19 09:00 02/22/19 08:59 02/02/19 08:18 Hydromorphone HCl (Dilaudid) 6 mg Q3H PRN IV BREAKTHROUGH PAIN 02/01/19 16:00 02/08/19 14:49 Levetiracetam (Keppra) 1,000 mg Q8HR NG 02/02/19 06:00 02/21/19 13:59 02/02/19 05:25 Lorazepam (Ativan 2mg/ml 1ml) 2 mg Q4H PRN IV For Anxiety 02/01/19 15:45 02/08/19 15:44 Methadone HCl (Methadone HCl) 20 mg EVERY 6 HOURS NG 02/02/19 06:00 02/04/19 13:59 02/02/19 05:24 Miconazole Nitrate (Miconazole Nitrate) 1 applic BID TOPIC 02/01/19 18:00 02/21/19 13:59 Ondansetron HCl (Zofran) 4 mg Q6H PRN IVP Nausea & Vomiting 02/01/19 14:51 03/03/19 14:50 Pantoprazole (Protonix) 40 mg DAILY IV 02/02/19 09:00 03/04/19 08:59 02/02/19 08:18 Propofol 100 ml @ 0 mls/hr Q24H IV 02/01/19 15:39 02/03/19 15:38 02/02/19 08:07 Vancomycin HCl (Vanco rx to dose) 1 ea DAILY PRN MISC Per rx protocol 02/01/19 18:30 03/03/19 18:29 Vancomycin HCl/ Dextrose 275 ml @ 137.5 mls/ hr Q12HR IVPB 02/01/19 21:00 02/06/19 20:59 02/02/19 08:19 Alexa Patterson M.D. Feb 02, 2019 10:17
--- NOTE | 2019-02-02 10:20 | NUR ---
NURSE NOTES: Seen by Dr Dixon with order to extubate. Order noted and carried out
--- NOTE | 2019-02-02 10:36 | Diagnostic Imaging Report ---
Indication: Chest pain Technique: One view of the chest Comparison: 02/01/2019 Findings: Body habitus limits evaluation. Stable satisfactory position of endotracheal tube. Interim placement of nasogastric tube, tip which projects beyond the edge of the image, presumably well within the stomach. Stable cardiomegaly and bilateral interstitial congestion Impression: Stable nasogastric intubation Otherwise unchanged over one day, findings as noted
--- NOTE | 2019-02-02 10:37 | Pulmonolgy Critical Care Note ---
Critical Care - Asmt/Plan Problems: (1) Status post panniculectomy (2) COPD (chronic obstructive pulmonary disease) (3) Morbid obesity (4) Abdominal pannus (5) Cerebrovascular accident (6) Seizures (7) Neuropathy Respiratory: monitor respiratory rate, adjust FIO2, CXR Cardiac: continue pressors, continue to monitor HR/BP Renal: F/U I&O, keep IV fluid, check electrolytes Infectious Disease: check cultures, continue antibiotics Gastrointestinal: continue feedings/current rate Endocrine: monitor blood sugar Hematologic: monitor H/H, transfuse if hgb<8.5 Neurologic: keep patient comfortable Prophylaxis: Protonix 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, 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 Discussed with: nurses, consultants, community case managerit security project manager - Objective Last 24 Hour Vital Signs Date Time Temp Pulse Resp B/P (MAP) Pulse Ox O2 Delivery O2 Flow Rate FiO2 02/02/19 08:35 95 02/02/19 08:34 80 12 40 02/02/19 08:19 84 100/47 02/02/19 08:10 86 19 40 40 02/02/19 08:07 12 92/44 Mechanical Ventilator 40 02/02/19 07:10 80 13 97 Mechanical Ventilator 40 02/02/19 07:08 76 15 40 02/02/19 07:00 83 16 97 Mechanical Ventilator 40 02/02/19 07:00 16 102/46 Mechanical Ventilator 40 02/02/19 07:00 76 15 102/46 (64) 95 02/02/19 06:24 15 105/44 Mechanical Ventilator 40 02/02/19 06:00 77 17 105/44 (64) 94 02/02/19 05:30 77 12 98/48 (65) 98 02/02/19 05:24 12 107/52 Mechanical Ventilator 40 02/02/19 05:18 76 12 40 50 02/02/19 05:00 81 12 107/52 (70) 98 02/02/19 04:30 81 12 108/47 (67) 98 02/02/19 04:24 14 107/59 40 02/02/19 04:15 13 91/45 Mechanical Ventilator 40 02/02/19 04:00 Mechanical Ventilator 02/02/19 04:00 99.9 80 12 91/45 (60) 98 02/02/19 04:00 90 02/02/19 03:37 76 12 99 Mechanical Ventilator 40 02/02/19 03:30 88 13 94/47 (63) 100 02/02/19 03:26 92 18 96 Mechanical Ventilator 40 02/02/19 03:25 92 18 40 50 02/02/19 03:15 17 111/49 Mechanical Ventilator 40 02/02/19 03:00 100.7 87 16 111/49 (69) 100 02/02/19 02:30 79 12 97/43 (61) 95 02/02/19 02:15 16 94/44 Mechanical Ventilator 40 02/02/19 02:00 82 16 94/44 (61) 95 02/02/19 01:30 82 16 90/39 (56) 95 02/02/19 01:24 81 15 40 50 02/02/19 01:15 14 99/44 Mechanical Ventilator 40 02/02/19 01:00 87 15 99/44 (62) 96 02/02/19 01:00 16 99/44 Mechanical Ventilator 40 02/02/19 00:00 Mechanical Ventilator 02/02/19 00:00 99.0 86 16 101/40 (60) 93 02/02/19 00:00 16 101/40 Mechanical Ventilator 40 02/02/19 00:00 77 02/01/19 23:30 85 16 97/40 (59) 93 02/01/19 23:03 77 13 98 Mechanical Ventilator 40 02/01/19 23:00 75 17 92/35 (54) 97 02/01/19 23:00 15 92/35 Mechanical Ventilator 40 02/01/19 22:50 79 14 96 Mechanical Ventilator 40 02/01/19 22:49 79 14 40 50 02/01/19 22:45 78 14 94/34 (54) 95 02/01/19 22:30 80 16 93/39 (57) 96 02/01/19 22:15 84 15 112/70 (84) 97 02/01/19 22:00 82 14 98/41 (60) 97 02/01/19 22:00 14 93/38 Mechanical Ventilator 40 02/01/19 21:45 84 15 93/38 (56) 99 02/01/19 21:30 86 17 97/34 (55) 97 02/01/19 21:30 15 97/34 Mechanical Ventilator 40 02/01/19 21:15 85 15 107/55 (72) 99 02/01/19 21:15 16 107/55 Mechanical Ventilator 40 02/01/19 21:05 79 17 40 50 02/01/19 21:00 79 16 90/36 (54) 98 02/01/19 21:00 15 90/36 Mechanical Ventilator 40 02/01/19 20:56 81 15 78/48 (58) 99 02/01/19 20:52 79 18 93/34 (53) 100 02/01/19 20:47 78 15 84/39 (54) 96 02/01/19 20:45 16 79/40 Mechanical Ventilator 40 02/01/19 20:30 86 17 109/85 (93) 96 02/01/19 20:15 94 17 115/55 (75) 100 02/01/19 20:00 76 02/01/19 20:00 Mechanical Ventilator 02/01/19 20:00 98.4 79 13 133/63 (86) 100 02/01/19 19:57 78 14 110/52 (71) 100 02/01/19 19:45 14 110/52 Mechanical Ventilator 40 02/01/19 19:30 78 12 100 Mechanical Ventilator 40 02/01/19 19:30 15 95/53 Mechanical Ventilator 40 02/01/19 19:15 15 92/52 Mechanical Ventilator 50 02/01/19 19:11 77 16 100 Mechanical Ventilator 40 02/01/19 19:11 77 16 40 50 02/01/19 19:00 77 13 115/62 (79) 99 02/01/19 19:00 15 84/47 Mechanical Ventilator 50 02/01/19 18:15 14 115/62 Mechanical Ventilator 02/01/19 18:00 82 19 115/62 (79) 95 02/01/19 17:55 13 113/59 Mechanical Ventilator 02/01/19 17:30 20 113/59 Mechanical Ventilator 02/01/19 17:12 50 02/01/19 17:00 20 113/59 Mechanical Ventilator 02/01/19 17:00 74 17 113/59 (77) 100 02/01/19 16:43 74 14 50 02/01/19 16:15 20 114/60 Mechanical Ventilator 02/01/19 16:00 87 15 114/60 (78) 99 02/01/19 16:00 22 130/70 Mechanical Ventilator 02/01/19 16:00 78 02/01/19 16:00 Mechanical Ventilator 02/01/19 15:43 22 131/70 Mechanical Ventilator 02/01/19 15:20 Nasal Cannula 2.0 02/01/19 15:17 104 21 50 02/01/19 15:15 20 131/70 Mechanical Ventilator 02/01/19 15:07 Nasal Cannula 02/01/19 15:06 Nasal Cannula 02/01/19 15:00 98.4 94 21 131/70 (90) 100 02/01/19 14:56 20 113/99 Mechanical Ventilator 02/01/19 14:46 74 20 98 02/01/19 11:37 Nasal Cannula 3.0 32 02/01/19 11:36 Nasal Cannula 3.0 32 Status: awake Condition: critical HEENT: atraumatic Neck: full ROM Heart: HR/BP stable Abdomen: soft, active bowel sounds Extremities: no C/C/E, edema Micro: Microbiology Date/Time Source Procedure Growth Status 02/01/19 17:00 Sputum Gram Stain Pending Resulted 02/01/19 17:00 Sputum Sputum Culture - Preliminary NORMAL UPPER RESPIRATORY EDITH AT 24 ... Resulted Critical Care - Subjective ROS Limited/Unobtainable: Yes Interval Events: tolerated the surgery very well, orally intubated Condition: critical EKG Rhythm: Sinus Rhythm FI02: 40 Vent Support Breath Rate: 12 Vent Support Mode: CPAP Vent Tidal Volume: 600 Sputum Amount: Scant PEEP: 0.0 PIP: 20 I&O: Intake and Output 02/01/19 02/02/19 19:00 07:00 Intake Total 156.750 ml 1609.198 ml Output Total 330 ml 1685 ml Balance -173.250 ml -75.802 ml IV Total 156.750 ml 1609.198 ml Output Urine Total 50 ml 975 ml Drainage Total 280 ml 710 ml CXR: ROGER ET-Tube: 7.5 ET Position: 28 Labs: Laboratory Tests Test 02/01/19 16:00 02/01/19 16:55 02/02/19 05:00 02/02/19 07:50 White Blood Count 13.0 K/UL (4.8-10.8) #H 12.9 K/UL (4.8-10.8) H Red Blood Count 2.93 M/UL (4.70-6.10) L 2.72 M/UL (4.70-6.10) L Hemoglobin 9.0 G/DL (14.2-18.0) L 8.5 G/DL (14.2-18.0) L Hematocrit 27.1 % (42.0-52.0) L 25.1 % (42.0-52.0) L Mean Corpuscular Volume 93 FL (80-99) 92 FL (80-99) Mean Corpuscular Hemoglobin 30.6 PG (27.0-31.0) 31.2 PG (27.0-31.0) H Mean Corpuscular Hemoglobin Concent 33.1 G/DL (32.0-36.0) 33.8 G/DL (32.0-36.0) Red Cell Distribution Width 13.2 % (11.6-14.8) 13.2 % (11.6-14.8) Platelet Count 234 K/UL (150-450) 234 K/UL (150-450) Mean Platelet Volume 4.3 FL (6.5-10.1) L 4.6 FL (6.5-10.1) L Neutrophils (%) (Auto) 84.4 % (45.0-75.0) H 76.9 % (45.0-75.0) H Lymphocytes (%) (Auto) 8.0 % (20.0-45.0) L 13.2 % (20.0-45.0) L Monocytes (%) (Auto) 5.6 % (1.0-10.0) 8.0 % (1.0-10.0) Eosinophils (%) (Auto) 1.1 % (0.0-3.0) 1.2 % (0.0-3.0) Basophils (%) (Auto) 1.0 % (0.0-2.0) 0.7 % (0.0-2.0) Prothrombin Time 10.2 SEC (9.30-11.50) Prothromb Time International Ratio 1.0 (0.9-1.1) Activated Partial Thromboplast Time 23 SEC (23-33) Sodium Level 141 MMOL/L (136-145) 141 MMOL/L (136-145) Potassium Level 4.3 MMOL/L (3.5-5.1) 4.0 MMOL/L (3.5-5.1) Chloride Level 101 MMOL/L (98-107) 102 MMOL/L (98-107) Carbon Dioxide Level 33 MMOL/L (21-32) H 36 MMOL/L (21-32) H Anion Gap 7 mmol/L (5-15) 3 mmol/L (5-15) L Blood Urea Nitrogen 21 mg/dL (7-18) H 23 mg/dL (7-18) H Creatinine 1.4 MG/DL (0.55-1.30) H 1.3 MG/DL (0.55-1.30) Estimat Glomerular Filtration Rate 52.6 mL/min (>60) 57.3 mL/min (>60) Glucose Level 96 MG/DL (74-106) 114 MG/DL (74-106) H Calcium Level 8.2 MG/DL (8.5-10.1) L 7.9 MG/DL (8.5-10.1) L Phosphorus Level 4.8 MG/DL (2.5-4.9) 4.0 MG/DL (2.5-4.9) Magnesium Level 1.7 MG/DL (1.8-2.4) L 1.6 MG/DL (1.8-2.4) L Total Bilirubin 1.1 MG/DL (0.2-1.0) H 0.8 MG/DL (0.2-1.0) Direct Bilirubin 0.3 MG/DL (0.0-0.3) Aspartate Amino Transf (AST/SGOT) 38 U/L (15-37) H 44 U/L (15-37) H Alanine Aminotransferase (ALT/SGPT) 12 U/L (12-78) 14 U/L (12-78) Alkaline Phosphatase 113 U/L (46-116) 101 U/L (46-116) Total Protein 5.9 G/DL (6.4-8.2) L 5.5 G/DL (6.4-8.2) L Albumin 2.3 G/DL (3.4-5.0) L 1.8 G/DL (3.4-5.0) L Globulin 3.6 g/dL 3.7 g/dL Albumin/Globulin Ratio 0.6 (1.0-2.7) L 0.5 (1.0-2.7) L Triglycerides Level 93 MG/DL (30-150) Arterial Blood pH 7.440 (7.350-7.450) 7.467 (7.350-7.450) Arterial Blood Partial Pressure CO2 56.0 mmHg (35.0-45.0) *H 52.2 mmHg (35.0-45.0) H Arterial Blood Partial Pressure O2 97.3 mmHg (75.0-100.0) 74.6 mmHg (75.0-100.0) L Arterial Blood HCO3 37.2 mmol/L (22.0-26.0) H 36.9 mmol/L (22.0-26.0) H Arterial Blood Oxygen Saturation 96.3 % (95-100) 94.3 % (95-100) L Arterial Blood Base Excess 11.6 (-2-2) *H 11.7 (-2-2) *H Don Test Positive Positive Test 02/02/19 09:10 Arterial Blood pH 7.469 (7.350-7.450) Arterial Blood Partial Pressure CO2 51.0 mmHg (35.0-45.0) H Arterial Blood Partial Pressure O2 79.6 mmHg (75.0-100.0) Arterial Blood HCO3 36.2 mmol/L (22.0-26.0) H Arterial Blood Oxygen Saturation 95.3 % (95-100) Arterial Blood Base Excess 11.2 (-2-2) *H Don Test Positive Bill Dixon MD Feb 02, 2019 10:37
--- NOTE | 2019-02-02 10:40 | NUR ---
RESPIRATORY NOTE: Extubated patient at 1030. Placed on COOL AEROSOL 40% FIO2 12LPM. Tolerating well.
--- NOTE | 2019-02-02 10:53 | NUR ---
RD ASSESSMENT & RECOMMENDATIONS SEE CARE ACTIVITY FOR COMPLETE ASSESSMENT DAILY ESTIMATED NEEDS: Needs based on obesity, pulmonary, 107kg abw 15-20 kcals/kg 7994-7344 total kcals 1-1.5 g protein/kg 107-161 g total protein 15-25ml/kcal mL/kg 0902-6477 total fluid mLs NUTRITION DIAGNOSIS: Decreased sodium and fat intake needs R/T cardiac h/o and morbid obesity as evidenced by h/o CHF, CVA, w/ BMI>50, @ 230% of [place] Body Weight, currently NPO, s/p extubation post op. CURRENT DIET:NPO PO DIET RECOMMENDATIONS: DIET PER MED -----> CARDIAC ADDITIONAL RECOMMENDATIONS: * Calibrated bedscale wt for accurate CBW * Diet per MD: s/p extubation 7/, post op #1 * Monitor for readiness for diet ed * Monitor lytes, replete as needed (low mag) .
--- NOTE | 2019-02-02 11:02 | NUR ---
NURSE NOTES: Patient extubated and tolerated well.On oxygen nasal canula and saturate at 96%.Kept on close monitoring
[2019-02-02] MEDS: Miconazole 2% Cream 30gm TOPIC SCH ×2 (11:10→18:19)
--- NOTE | 2019-02-02 12:07 | Cardiac Electrophysiology PN ---
Assessment/Plan Assessment/Plan 1. Hypertension. On amlodipine 5 daily and Lasix 20 mg IV q8hr. EF 60% 2. Severe bilateral lower extremity edema and cellulitis. On IV antibiotic per Dr. Patterson. 3. Abdominal pannus.S/P Resection of pannus 02/01/19 Tolerated surgery with no cardiac issues. 4. COPD and ADALBERTO. 5. Resp failure, extubated today 6. Right heart failure. 7. Lumbar spondylosis. 8. Morbid obesity. JESICA RN Subjective Subjective Had Penniculectomy yesterday .In ICU extubated today Objective Last 24 Hour Vital Signs Date Time Temp Pulse Resp B/P (MAP) Pulse Ox O2 Delivery O2 Flow Rate FiO2 02/02/19 10:42 77 16 96 Cool Aerosol 12.0 40 02/02/19 10:39 Venturi Mask 12.0 40 02/02/19 10:00 85 13 109/50 (69) 95 02/02/19 09:00 84 14 106/50 (68) 95 02/02/19 08:35 95 02/02/19 08:34 80 12 40 02/02/19 08:19 84 100/47 02/02/19 08:10 86 19 40 40 02/02/19 08:07 12 92/44 Mechanical Ventilator 40 02/02/19 08:00 85 02/02/19 08:00 Mechanical Ventilator 02/02/19 08:00 99.8 84 11 100/47 (64) 98 02/02/19 07:10 80 13 97 Mechanical Ventilator 40 02/02/19 07:08 76 15 40 02/02/19 07:00 83 16 97 Mechanical Ventilator 40 02/02/19 07:00 16 102/46 Mechanical Ventilator 40 02/02/19 07:00 76 15 102/46 (64) 95 02/02/19 06:24 15 105/44 Mechanical Ventilator 40 02/02/19 06:00 77 17 105/44 (64) 94 02/02/19 05:30 77 12 98/48 (65) 98 02/02/19 05:24 12 107/52 Mechanical Ventilator 40 02/02/19 05:18 76 12 40 50 02/02/19 05:00 81 12 107/52 (70) 98 02/02/19 04:30 81 12 108/47 (67) 98 7/9/19 04:24 14 107/59 40 02/02/19 04:15 13 91/45 Mechanical Ventilator 40 02/02/19 04:00 Mechanical Ventilator 02/02/19 04:00 99.9 80 12 91/45 (60) 98 02/02/19 04:00 90 02/02/19 03:37 76 12 99 Mechanical Ventilator 40 02/02/19 03:30 88 13 94/47 (63) 100 02/02/19 03:26 92 18 96 Mechanical Ventilator 40 02/02/19 03:25 92 18 40 50 02/02/19 03:15 17 111/49 Mechanical Ventilator 40 02/02/19 03:00 100.7 87 16 111/49 (69) 100 02/02/19 02:30 79 12 97/43 (61) 95 02/02/19 02:15 16 94/44 Mechanical Ventilator 40 02/02/19 02:00 82 16 94/44 (61) 95 02/02/19 01:30 82 16 90/39 (56) 95 02/02/19 01:24 81 15 40 50 02/02/19 01:15 14 99/44 Mechanical Ventilator 40 02/02/19 01:00 87 15 99/44 (62) 96 02/02/19 01:00 16 99/44 Mechanical Ventilator 40 02/02/19 00:00 Mechanical Ventilator 02/02/19 00:00 99.0 86 16 101/40 (60) 93 02/02/19 00:00 16 101/40 Mechanical Ventilator 40 02/02/19 00:00 77 02/01/19 23:30 85 16 97/40 (59) 93 02/01/19 23:03 77 13 98 Mechanical Ventilator 40 02/01/19 23:00 75 17 92/35 (54) 97 02/01/19 23:00 15 92/35 Mechanical Ventilator 40 02/01/19 22:50 79 14 96 Mechanical Ventilator 40 02/01/19 22:49 79 14 40 50 02/01/19 22:45 78 14 94/34 (54) 95 02/01/19 22:30 80 16 93/39 (57) 96 02/01/19 22:15 84 15 112/70 (84) 97 02/01/19 22:00 82 14 98/41 (60) 97 02/01/19 22:00 14 93/38 Mechanical Ventilator 40 02/01/19 21:45 84 15 93/38 (56) 99 02/01/19 21:30 86 17 97/34 (55) 97 02/01/19 21:30 15 97/34 Mechanical Ventilator 40 02/01/19 21:15 85 15 107/55 (72) 99 02/01/19 21:15 16 107/55 Mechanical Ventilator 40 02/01/19 21:05 79 17 40 50 02/01/19 21:00 79 16 90/36 (54) 98 02/01/19 21:00 15 90/36 Mechanical Ventilator 40 02/01/19 20:56 81 15 78/48 (58) 99 02/01/19 20:52 79 18 93/34 (53) 100 02/01/19 20:47 78 15 84/39 (54) 96 02/01/19 20:45 16 79/40 Mechanical Ventilator 40 02/01/19 20:30 86 17 109/85 (93) 96 02/01/19 20:15 94 17 115/55 (75) 100 02/01/19 20:00 76 02/01/19 20:00 Mechanical Ventilator 02/01/19 20:00 98.4 79 13 133/63 (86) 100 02/01/19 19:57 78 14 110/52 (71) 100 02/01/19 19:45 14 110/52 Mechanical Ventilator 40 02/01/19 19:30 78 12 100 Mechanical Ventilator 40 02/01/19 19:30 15 95/53 Mechanical Ventilator 40 02/01/19 19:15 15 92/52 Mechanical Ventilator 50 02/01/19 19:11 77 16 100 Mechanical Ventilator 40 02/01/19 19:11 77 16 40 50 02/01/19 19:00 77 13 115/62 (79) 99 02/01/19 19:00 15 84/47 Mechanical Ventilator 50 02/01/19 18:15 14 115/62 Mechanical Ventilator 02/01/19 18:00 82 19 115/62 (79) 95 02/01/19 17:55 13 113/59 Mechanical Ventilator 02/01/19 17:30 20 113/59 Mechanical Ventilator 02/01/19 17:12 50 02/01/19 17:00 20 113/59 Mechanical Ventilator 02/01/19 17:00 74 17 113/59 (77) 100 02/01/19 16:43 74 14 50 02/01/19 16:15 20 114/60 Mechanical Ventilator 02/01/19 16:00 87 15 114/60 (78) 99 02/01/19 16:00 22 130/70 Mechanical Ventilator 02/01/19 16:00 78 02/01/19 16:00 Mechanical Ventilator 02/01/19 15:43 22 131/70 Mechanical Ventilator 02/01/19 15:20 Nasal Cannula 2.0 02/01/19 15:17 104 21 50 02/01/19 15:15 20 131/70 Mechanical Ventilator 02/01/19 15:07 Nasal Cannula 02/01/19 15:06 Nasal Cannula 02/01/19 15:00 98.4 94 21 131/70 (90) 100 02/01/19 14:56 20 113/99 Mechanical Ventilator 02/01/19 14:46 74 20 98 Intake and Output 02/01/19 02/02/19 19:00 07:00 Intake Total 156.750 ml 1609.198 ml Output Total 330 ml 1685 ml Balance -173.250 ml -75.802 ml IV Total 156.750 ml 1609.198 ml Output Urine Total 50 ml 975 ml Drainage Total 280 ml 710 ml Laboratory Tests Test 02/01/19 16:00 02/01/19 16:55 02/02/19 05:00 02/02/19 07:50 White Blood Count 13.0 K/UL (4.8-10.8) #H 12.9 K/UL (4.8-10.8) H Red Blood Count 2.93 M/UL (4.70-6.10) L 2.72 M/UL (4.70-6.10) L Hemoglobin 9.0 G/DL (14.2-18.0) L 8.5 G/DL (14.2-18.0) L Hematocrit 27.1 % (42.0-52.0) L 25.1 % (42.0-52.0) L Mean Corpuscular Volume 93 FL (80-99) 92 FL (80-99) Mean Corpuscular Hemoglobin 30.6 PG (27.0-31.0) 31.2 PG (27.0-31.0) H Mean Corpuscular Hemoglobin Concent 33.1 G/DL (32.0-36.0) 33.8 G/DL (32.0-36.0) Red Cell Distribution Width 13.2 % (11.6-14.8) 13.2 % (11.6-14.8) Platelet Count 234 K/UL (150-450) 234 K/UL (150-450) Mean Platelet Volume 4.3 FL (6.5-10.1) L 4.6 FL (6.5-10.1) L Neutrophils (%) (Auto) 84.4 % (45.0-75.0) H 76.9 % (45.0-75.0) H Lymphocytes (%) (Auto) 8.0 % (20.0-45.0) L 13.2 % (20.0-45.0) L Monocytes (%) (Auto) 5.6 % (1.0-10.0) 8.0 % (1.0-10.0) Eosinophils (%) (Auto) 1.1 % (0.0-3.0) 1.2 % (0.0-3.0) Basophils (%) (Auto) 1.0 % (0.0-2.0) 0.7 % (0.0-2.0) Prothrombin Time 10.2 SEC (9.30-11.50) Prothromb Time International Ratio 1.0 (0.9-1.1) Activated Partial Thromboplast Time 23 SEC (23-33) Sodium Level 141 MMOL/L (136-145) 141 MMOL/L (136-145) Potassium Level 4.3 MMOL/L (3.5-5.1) 4.0 MMOL/L (3.5-5.1) Chloride Level 101 MMOL/L (98-107) 102 MMOL/L (98-107) Carbon Dioxide Level 33 MMOL/L (21-32) H 36 MMOL/L (21-32) H Anion Gap 7 mmol/L (5-15) 3 mmol/L (5-15) L Blood Urea Nitrogen 21 mg/dL (7-18) H 23 mg/dL (7-18) H Creatinine 1.4 MG/DL (0.55-1.30) H 1.3 MG/DL (0.55-1.30) Estimat Glomerular Filtration Rate 52.6 mL/min (>60) 57.3 mL/min (>60) Glucose Level 96 MG/DL (74-106) 114 MG/DL (74-106) H Calcium Level 8.2 MG/DL (8.5-10.1) L 7.9 MG/DL (8.5-10.1) L Phosphorus Level 4.8 MG/DL (2.5-4.9) 4.0 MG/DL (2.5-4.9) Magnesium Level 1.7 MG/DL (1.8-2.4) L 1.6 MG/DL (1.8-2.4) L Total Bilirubin 1.1 MG/DL (0.2-1.0) H 0.8 MG/DL (0.2-1.0) Direct Bilirubin 0.3 MG/DL (0.0-0.3) Aspartate Amino Transf (AST/SGOT) 38 U/L (15-37) H 44 U/L (15-37) H Alanine Aminotransferase (ALT/SGPT) 12 U/L (12-78) 14 U/L (12-78) Alkaline Phosphatase 113 U/L (46-116) 101 U/L (46-116) Total Protein 5.9 G/DL (6.4-8.2) L 5.5 G/DL (6.4-8.2) L Albumin 2.3 G/DL (3.4-5.0) L 1.8 G/DL (3.4-5.0) L Globulin 3.6 g/dL 3.7 g/dL Albumin/Globulin Ratio 0.6 (1.0-2.7) L 0.5 (1.0-2.7) L Triglycerides Level 93 MG/DL (30-150) Arterial Blood pH 7.440 (7.350-7.450) 7.467 (7.350-7.450) Arterial Blood Partial Pressure CO2 56.0 mmHg (35.0-45.0) *H 52.2 mmHg (35.0-45.0) H Arterial Blood Partial Pressure O2 97.3 mmHg (75.0-100.0) 74.6 mmHg (75.0-100.0) L Arterial Blood HCO3 37.2 mmol/L (22.0-26.0) H 36.9 mmol/L (22.0-26.0) H Arterial Blood Oxygen Saturation 96.3 % (95-100) 94.3 % (95-100) L Arterial Blood Base Excess 11.6 (-2-2) *H 11.7 (-2-2) *H Don Test Positive Positive Test 02/02/19 09:10 Arterial Blood pH 7.469 (7.350-7.450) Arterial Blood Partial Pressure CO2 51.0 mmHg (35.0-45.0) H Arterial Blood Partial Pressure O2 79.6 mmHg (75.0-100.0) Arterial Blood HCO3 36.2 mmol/L (22.0-26.0) H Arterial Blood Oxygen Saturation 95.3 % (95-100) Arterial Blood Base Excess 11.2 (-2-2) *H Don Test Positive Microbiology Date/Time Source Procedure Growth Status 02/01/19 17:00 Sputum Gram Stain Pending Resulted 02/01/19 17:00 Sputum Sputum Culture - Preliminary NORMAL UPPER RESPIRATORY EDITH AT 24 ... Resulted Objective HEAD AND NECK: No JVD. LUNGS: Clear. CARDIOVASCULAR: Regular S1 and S2 with no gallop or murmur. ABDOMEN: Very swollen, erythematous, and enlarged scrotum. S/P abdominal surgery with 3 drains EXTREMITIES: 2+ pitting edema and cellulitis of the legs. Carlos Yee MD Feb 02, 2019 12:07
--- NOTE | 2019-02-02 12:11 | NUR ---
NURSE NOTES: Seen by Dr Yee, will follow up new order.Patient refused to be turned due to pain.Will continue to monitor
--- NOTE | 2019-02-02 13:04 | NUR ---
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 EXTUBATED 02/02 VS: BP 97/51, P 82, T 99.8, RR 11, SpO2 95 WBC 12.9, RBC 2.72, H&H 8.5/25.1, BUN 23, AST 44 CXR: STABLE NASOGASTRIC INTUBATION IS:DILAUDID 6mg IV VANCOMYCIN 275ml IVPB CYMBALTA 30mg PROPOFOL 100ml IV D5/NS x1L IV ALBUTEROL 3ml HHN KEPPRA 1,000mg AZTREONAM 50ml IVPB METHADONE 20mg PLAN: EMPIRIC IV VANCO & AZTREONAM WEANED AND EXTUBATED
--- NOTE | 2019-02-02 14:11 | NUR ---
NURSE NOTES: Patient kept clean and comfortable,seen by Dr Patterson,will follow up with new orders.Call light within easy reach
[2019-02-02 15:07] LABS: APPEARANCE,URINE CLEAR; BILIRUBIN, URINE NEGATIVE (NEGATIVE); GLUCOSE, URINE (UA) NEGATIVE (NEGATIVE); KETONES,URINE NEGATIVE (NEGATIVE); LEUKOCYTE ESTERASE ,URINE 1+ (NEGATIVE); NITRITE,URINE NEGATIVE (NEGATIVE); PH,URINE 5 (4.5-8.0); PROTEIN,URINE 1+ (NEGATIVE); UROBILINOGEN,URINE NORMAL MG/DL (0.0-1.0)
[2019-02-02 15:13] LABS: COLOR,URINE YELLOW
--- NOTE | 2019-02-02 15:20 | NUR ---
RADIOLOGY DEPT., CHEST X-RAY DONE.-P.DYE
[2019-02-02] MEDS ORDERED: D5 1/2NS 1000ml IV ONE (15:26)
--- NOTE | 2019-02-02 16:03 | Surgery Progress Note ---
Surgery Progress Note Subjective Additional Comments doing well post op extubated pain controlled drains serosang recovering Objective Last 24 Hour Vital Signs Date Time Temp Pulse Resp B/P (MAP) Pulse Ox O2 Delivery O2 Flow Rate FiO2 02/02/19 13:01 82 14 97/51 (66) 95 02/02/19 12:00 85 02/02/19 12:00 85 14 105/51 (69) 95 02/02/19 12:00 Mechanical Ventilator 02/02/19 11:40 100.1 02/02/19 11:00 86 14 105/52 (69) 95 02/02/19 10:42 77 16 96 Cool Aerosol 12.0 40 02/02/19 10:39 Venturi Mask 12.0 40 02/02/19 10:00 85 13 109/50 (69) 95 02/02/19 09:00 84 14 106/50 (68) 95 02/02/19 08:35 95 02/02/19 08:34 80 12 40 02/02/19 08:19 84 100/47 02/02/19 08:10 86 19 40 40 02/02/19 08:07 12 92/44 Mechanical Ventilator 40 02/02/19 08:00 85 02/02/19 08:00 Mechanical Ventilator 02/02/19 08:00 99.8 84 11 100/47 (64) 98 02/02/19 07:10 80 13 97 Mechanical Ventilator 40 02/02/19 07:08 76 15 40 02/02/19 07:00 83 16 97 Mechanical Ventilator 40 02/02/19 07:00 16 102/46 Mechanical Ventilator 40 02/02/19 07:00 76 15 102/46 (64) 95 02/02/19 06:24 15 105/44 Mechanical Ventilator 40 02/02/19 06:00 77 17 105/44 (64) 94 02/02/19 05:30 77 12 98/48 (65) 98 02/02/19 05:24 12 107/52 Mechanical Ventilator 40 02/02/19 05:18 76 12 40 50 02/02/19 05:00 81 12 107/52 (70) 98 02/02/19 04:30 81 12 108/47 (67) 98 02/02/19 04:24 14 107/59 40 02/02/19 04:15 13 91/45 Mechanical Ventilator 40 02/02/19 04:00 Mechanical Ventilator 02/02/19 04:00 99.9 80 12 91/45 (60) 98 02/02/19 04:00 90 02/02/19 03:37 76 12 99 Mechanical Ventilator 40 02/02/19 03:30 88 13 94/47 (63) 100 02/02/19 03:26 92 18 96 Mechanical Ventilator 40 02/02/19 03:25 92 18 40 50 02/02/19 03:15 17 111/49 Mechanical Ventilator 40 02/02/19 03:00 100.7 87 16 111/49 (69) 100 02/02/19 02:30 79 12 97/43 (61) 95 02/02/19 02:15 16 94/44 Mechanical Ventilator 40 02/02/19 02:00 82 16 94/44 (61) 95 02/02/19 01:30 82 16 90/39 (56) 95 02/02/19 01:24 81 15 40 50 02/02/19 01:15 14 99/44 Mechanical Ventilator 40 02/02/19 01:00 87 15 99/44 (62) 96 02/02/19 01:00 16 99/44 Mechanical Ventilator 40 02/02/19 00:00 Mechanical Ventilator 02/02/19 00:00 99.0 86 16 101/40 (60) 93 02/02/19 00:00 16 101/40 Mechanical Ventilator 40 02/02/19 00:00 77 02/01/19 23:30 85 16 97/40 (59) 93 02/01/19 23:03 77 13 98 Mechanical Ventilator 40 02/01/19 23:00 75 17 92/35 (54) 97 02/01/19 23:00 15 92/35 Mechanical Ventilator 40 02/01/19 22:50 79 14 96 Mechanical Ventilator 40 02/01/19 22:49 79 14 40 50 02/01/19 22:45 78 14 94/34 (54) 95 02/01/19 22:30 80 16 93/39 (57) 96 02/01/19 22:15 84 15 112/70 (84) 97 02/01/19 22:00 82 14 98/41 (60) 97 02/01/19 22:00 14 93/38 Mechanical Ventilator 40 02/01/19 21:45 84 15 93/38 (56) 99 02/01/19 21:30 86 17 97/34 (55) 97 02/01/19 21:30 15 97/34 Mechanical Ventilator 40 02/01/19 21:15 85 15 107/55 (72) 99 02/01/19 21:15 16 107/55 Mechanical Ventilator 40 02/01/19 21:05 79 17 40 50 02/01/19 21:00 79 16 90/36 (54) 98 02/01/19 21:00 15 90/36 Mechanical Ventilator 40 02/01/19 20:56 81 15 78/48 (58) 99 02/01/19 20:52 79 18 93/34 (53) 100 02/01/19 20:47 78 15 84/39 (54) 96 02/01/19 20:45 16 79/40 Mechanical Ventilator 40 02/01/19 20:30 86 17 109/85 (93) 96 02/01/19 20:15 94 17 115/55 (75) 100 02/01/19 20:00 76 02/01/19 20:00 Mechanical Ventilator 02/01/19 20:00 98.4 79 13 133/63 (86) 100 02/01/19 19:57 78 14 110/52 (71) 100 02/01/19 19:45 14 110/52 Mechanical Ventilator 40 02/01/19 19:30 78 12 100 Mechanical Ventilator 40 02/01/19 19:30 15 95/53 Mechanical Ventilator 40 02/01/19 19:15 15 92/52 Mechanical Ventilator 50 02/01/19 19:11 77 16 100 Mechanical Ventilator 40 02/01/19 19:11 77 16 40 50 02/01/19 19:00 77 13 115/62 (79) 99 02/01/19 19:00 15 84/47 Mechanical Ventilator 50 02/01/19 18:15 14 115/62 Mechanical Ventilator 02/01/19 18:00 82 19 115/62 (79) 95 02/01/19 17:55 13 113/59 Mechanical Ventilator 02/01/19 17:30 20 113/59 Mechanical Ventilator 02/01/19 17:12 50 02/01/19 17:00 20 113/59 Mechanical Ventilator 02/01/19 17:00 74 17 113/59 (77) 100 02/01/19 16:43 74 14 50 02/01/19 16:15 20 114/60 Mechanical Ventilator I&O Intake and Output 02/01/19 02/02/19 19:00 07:00 Intake Total 156.750 ml 1609.198 ml Output Total 330 ml 1685 ml Balance -173.250 ml -75.802 ml IV Total 156.750 ml 1609.198 ml Output Urine Total 50 ml 975 ml Drainage Total 280 ml 710 ml Dressing: saturated Wound: clean Drains: lisbet Cardiovascular: RSR Respiratory: clear Abdomen: soft, non-tender, present bowel sounds Extremities: edema, no tenderness, no cyanosis Laboratory Tests Test 02/01/19 16:55 02/02/19 05:00 02/02/19 07:50 02/02/19 09:10 Arterial Blood pH 7.440 (7.350-7.450) 7.467 (7.350-7.450) 7.469 (7.350-7.450) Arterial Blood Partial Pressure CO2 56.0 mmHg (35.0-45.0) *H 52.2 mmHg (35.0-45.0) H 51.0 mmHg (35.0-45.0) H Arterial Blood Partial Pressure O2 97.3 mmHg (75.0-100.0) 74.6 mmHg (75.0-100.0) L 79.6 mmHg (75.0-100.0) Arterial Blood HCO3 37.2 mmol/L (22.0-26.0) H 36.9 mmol/L (22.0-26.0) H 36.2 mmol/L (22.0-26.0) H Arterial Blood Oxygen Saturation 96.3 % (95-100) 94.3 % (95-100) L 95.3 % (95-100) Arterial Blood Base Excess 11.6 (-2-2) *H 11.7 (-2-2) *H 11.2 (-2-2) *H Don Test Positive Positive Positive White Blood Count 12.9 K/UL (4.8-10.8) H Red Blood Count 2.72 M/UL (4.70-6.10) L Hemoglobin 8.5 G/DL (14.2-18.0) L Hematocrit 25.1 % (42.0-52.0) L Mean Corpuscular Volume 92 FL (80-99) Mean Corpuscular Hemoglobin 31.2 PG (27.0-31.0) H Mean Corpuscular Hemoglobin Concent 33.8 G/DL (32.0-36.0) Red Cell Distribution Width 13.2 % (11.6-14.8) Platelet Count 234 K/UL (150-450) Mean Platelet Volume 4.6 FL (6.5-10.1) L Neutrophils (%) (Auto) 76.9 % (45.0-75.0) H Lymphocytes (%) (Auto) 13.2 % (20.0-45.0) L Monocytes (%) (Auto) 8.0 % (1.0-10.0) Eosinophils (%) (Auto) 1.2 % (0.0-3.0) Basophils (%) (Auto) 0.7 % (0.0-2.0) Sodium Level 141 MMOL/L (136-145) Potassium Level 4.0 MMOL/L (3.5-5.1) Chloride Level 102 MMOL/L (98-107) Carbon Dioxide Level 36 MMOL/L (21-32) H Anion Gap 3 mmol/L (5-15) L Blood Urea Nitrogen 23 mg/dL (7-18) H Creatinine 1.3 MG/DL (0.55-1.30) Estimat Glomerular Filtration Rate 57.3 mL/min (>60) Glucose Level 114 MG/DL (74-106) H Calcium Level 7.9 MG/DL (8.5-10.1) L Phosphorus Level 4.0 MG/DL (2.5-4.9) Magnesium Level 1.6 MG/DL (1.8-2.4) L Total Bilirubin 0.8 MG/DL (0.2-1.0) Aspartate Amino Transf (AST/SGOT) 44 U/L (15-37) H Alanine Aminotransferase (ALT/SGPT) 14 U/L (12-78) Alkaline Phosphatase 101 U/L (46-116) Total Protein 5.5 G/DL (6.4-8.2) L Albumin 1.8 G/DL (3.4-5.0) L Globulin 3.7 g/dL Albumin/Globulin Ratio 0.5 (1.0-2.7) L Test 02/02/19 15:00 Urine Color Yellow Urine Appearance Clear Urine pH 5 (4.5-8.0) Urine Specific [place] 1.020 (1.005-1.035) Urine Protein 1+ (NEGATIVE) H Urine Glucose (UA) Negative (NEGATIVE) Urine Ketones Negative (NEGATIVE) Urine Blood 1+ (NEGATIVE) H Urine Nitrite Negative (NEGATIVE) Urine Bilirubin Negative (NEGATIVE) Urine Urobilinogen Normal MG/DL (0.0-1.0) Urine Leukocyte Esterase 1+ (NEGATIVE) H Urine RBC 0-2 /HPF (0 - 0) H Urine WBC 2-4 /HPF (0 - 0) Urine Squamous Epithelial Cells None /LPF (NONE/OCC) Urine Bacteria Few /HPF (NONE) Plan Problems: (1) Cellulitis of groin, left (2) Cellulitis Assessment & Plan: chronic cellulitis of pannus s/p panniculectomy now extubated and recovering pain controlled okay for diet -iv fluids -iv abx -drain care -keep lindsey in place -AM labs will follow with recs (3) COPD (chronic obstructive pulmonary disease) (4) Morbid obesity (5) Lumbar spondylosis (6) Right heart failure (7) ADALBERTO (obstructive sleep apnea) (8) Abdominal pannus (9) Neuropathy (10) Seizures (11) Cerebrovascular accident (12) Peripheral edema (13) Abdominal wall cellulitis (14) UTI (urinary tract infection) (15) Hyponatremia (16) Leg pain (17) Uncontrolled seizures (18) Muscle spasticity (19) Knee osteomyelits, right Gt Fernandez Feb 02, 2019 16:03
--- NOTE | 2019-02-02 16:11 | NUR ---
NURSE NOTES: Awake , no acute distress.On oxygen via nasal canula at 2lpm and saturate at 96%.Call light within easy reach.
--- NOTE | 2019-02-02 16:15 | Progress Note ---
DATE: 02/02/2019 SUBJECTIVE: This is a 53-year-old male with cellulitis. Now in the ICU. The patient has altered mental status, some more confusion, some anxiety. That is why, his attending has requested daily psychiatric consultation for this patient. MENTAL STATUS EXAMINATION: This is a 53-year-old male. Appearance is disheveled. Attitude, irritable and agitated. Affect, guarded and restricted. Intellect poor. Mood, depressed and anxious. Motor activity, psychomotor agitation. Insight and judgment is poor. DIAGNOSIS: Major depressive disorder, mild, recurrent, without psychotic features. PLAN: Treat him with Cymbalta 30 mg daily. Also treat this patient with a medication regimen consisting of Ativan 2 mg IV every 4 hours p.r.n. and provide him with 20 minutes of reality-based supportive psychotherapy. Chart reviewed. Discussed with staff. Seen and assessed at bedside. Laney Mcghee M.D. DR: GEENA JOB#: [id number] CC:
--- NOTE | 2019-02-02 16:34 | NUR ---
Social Service Note Patient extubated. Patient is a resident of [facility]. Patient will continue to require snf placement upon discharge. Patient's medi-john terminated and [facility] EW has submitted documentation to reinstate patient's medi-john. Patient is a full code. Patient's emergency contact is his [facility] Heike [phone].
[2019-02-02] MEDS ORDERED: NS 275ml ONE (16:46)
[2019-02-02] MEDS ORDERED: Tubing IV Secondary IV ONE (16:46)
--- NOTE | 2019-02-02 18:08 | NUR ---
NURSE NOTES: ADls done,kept clean and dry. Call light within easy reach.Will continue to monitor
--- NOTE | 2019-02-02 18:52 | General Progress Note ---
Assessment/Plan Problem List: (1) Uncontrolled seizures ICD Codes: R56.9 - Unspecified convulsions SNOMED: 31713961 (2) Hyponatremia ICD Codes: E87.1 - Hypo-osmolality and hyponatremia SNOMED: 80948294 (3) Leg pain ICD Codes: M79.606 - Pain in leg, unspecified SNOMED: 11957400 (4) Cellulitis ICD Codes: L03.90 - Cellulitis, unspecified SNOMED: 528523146 (5) COPD (chronic obstructive pulmonary disease) ICD Codes: J44.9 - Chronic obstructive pulmonary disease, unspecified SNOMED: 32380058 (6) Lumbar spondylosis ICD Codes: M47.816 - Spondylosis without myelopathy or radiculopathy, lumbar region SNOMED: 052966796 (7) Right heart failure ICD Codes: I50.810 - Right heart failure, unspecified SNOMED: 767835321 (8) ADALBERTO (obstructive sleep apnea) ICD Codes: G47.33 - Obstructive sleep apnea (adult) (pediatric) SNOMED: 22660294 (9) Neuropathy ICD Codes: G62.9 - Polyneuropathy, unspecified SNOMED: 309907005 (10) Seizures ICD Codes: R56.9 - Unspecified convulsions SNOMED: 87420365 (11) Cerebrovascular accident ICD Codes: I63.9 - Cerebral infarction, unspecified SNOMED: 362957883 (12) Peripheral edema ICD Codes: R60.9 - Edema, unspecified SNOMED: 726858069 (13) UTI (urinary tract infection) ICD Codes: N39.0 - Urinary tract infection, site not specified SNOMED: 54270989 Status: stable, progressing Assessment/Plan: cellulitis sepsis.abx per id no wheezing neuropathy s/p cva copd resp insuff cva no sz afebrile reviewed chart and labs and meds Subjective ROS Limited/Unobtainable: Yes Allergies: Coded Allergies: ASPIRIN (Verified Allergy, Unknown, 07/14/18) KETOROLAC (Verified Allergy, Unknown, 07/14/18) PENICILLINS (Verified Allergy, Unknown, 12/23/18) tolerated Ancef on 08/2018 Objective Last 24 Hour Vital Signs Date Time Temp Pulse Resp B/P (MAP) Pulse Ox O2 Delivery O2 Flow Rate FiO2 02/02/19 18:00 82 13 118/45 (69) 97 02/02/19 17:00 85 14 105/51 (69) 95 02/02/19 16:00 96.8 85 14 148/108 (121) 98 02/02/19 16:00 Mechanical Ventilator 02/02/19 16:00 87 02/02/19 15:16 98.2 02/02/19 15:00 82 14 182/107 (132) 98 02/02/19 14:00 82 14 176/111 (132) 98 02/02/19 13:01 82 14 97/51 (66) 95 02/02/19 12:00 85 02/02/19 12:00 85 14 105/51 (69) 95 02/02/19 12:00 Mechanical Ventilator 02/02/19 12:00 97.0 85 14 105/51 (69) 95 02/02/19 11:00 86 14 105/52 (69) 95 02/02/19 10:42 77 16 96 Cool Aerosol 12.0 40 02/02/19 10:39 Venturi Mask 12.0 40 02/02/19 10:00 85 13 109/50 (69) 95 02/02/19 09:00 84 14 106/50 (68) 95 02/02/19 08:35 95 02/02/19 08:34 80 12 40 02/02/19 08:19 84 100/47 02/02/19 08:15 14 105/52 Mechanical Ventilator 02/02/19 08:15 14 105/52 Mechanical Ventilator 02/02/19 08:10 86 19 40 40 02/02/19 08:07 12 92/44 Mechanical Ventilator 40 02/02/19 08:02 14 109/50 Mechanical Ventilator 02/02/19 08:02 14 109/50 Mechanical Ventilator 02/02/19 08:00 85 02/02/19 08:00 Mechanical Ventilator 02/02/19 08:00 99.8 84 11 100/47 (64) 98 02/02/19 08:00 40 02/02/19 07:30 14 106/50 Mechanical Ventilator 02/02/19 07:30 14 106/50 Mechanical Ventilator 02/02/19 07:15 11 100/47 Mechanical Ventilator 40 02/02/19 07:15 11 100/47 Mechanical Ventilator 40 02/02/19 07:10 80 13 97 Mechanical Ventilator 40 02/02/19 07:08 76 15 40 02/02/19 07:00 83 16 97 Mechanical Ventilator 40 02/02/19 07:00 16 102/46 Mechanical Ventilator 40 02/02/19 07:00 76 15 102/46 (64) 95 02/02/19 06:24 15 105/44 Mechanical Ventilator 40 02/02/19 06:00 77 17 105/44 (64) 94 02/02/19 05:30 77 12 98/48 (65) 98 02/02/19 05:24 12 107/52 Mechanical Ventilator 40 02/02/19 05:18 76 12 40 50 02/02/19 05:00 81 12 107/52 (70) 98 02/02/19 04:30 81 12 108/47 (67) 98 02/02/19 04:24 14 107/59 40 02/02/19 04:15 13 91/45 Mechanical Ventilator 40 02/02/19 04:00 Mechanical Ventilator 02/02/19 04:00 99.9 80 12 91/45 (60) 98 02/02/19 04:00 90 02/02/19 03:37 76 12 99 Mechanical Ventilator 40 02/02/19 03:30 88 13 94/47 (63) 100 02/02/19 03:26 92 18 96 Mechanical Ventilator 40 02/02/19 03:25 92 18 40 50 02/02/19 03:15 17 111/49 Mechanical Ventilator 40 02/02/19 03:00 100.7 87 16 111/49 (69) 100 02/02/19 02:30 79 12 97/43 (61) 95 02/02/19 02:15 16 94/44 Mechanical Ventilator 40 02/02/19 02:00 82 16 94/44 (61) 95 02/02/19 01:30 82 16 90/39 (56) 95 02/02/19 01:24 81 15 40 50 02/02/19 01:15 14 99/44 Mechanical Ventilator 40 02/02/19 01:00 87 15 99/44 (62) 96 02/02/19 01:00 16 99/44 Mechanical Ventilator 40 02/02/19 00:00 Mechanical Ventilator 02/02/19 00:00 99.0 86 16 101/40 (60) 93 02/02/19 00:00 16 101/40 Mechanical Ventilator 40 02/02/19 00:00 77 7/8/19 23:30 85 16 97/40 (59) 93 02/01/19 23:03 77 13 98 Mechanical Ventilator 40 02/01/19 23:00 75 17 92/35 (54) 97 02/01/19 23:00 15 92/35 Mechanical Ventilator 40 02/01/19 22:50 79 14 96 Mechanical Ventilator 40 02/01/19 22:49 79 14 40 50 02/01/19 22:45 78 14 94/34 (54) 95 02/01/19 22:30 80 16 93/39 (57) 96 02/01/19 22:15 84 15 112/70 (84) 97 02/01/19 22:00 82 14 98/41 (60) 97 02/01/19 22:00 14 93/38 Mechanical Ventilator 40 02/01/19 21:45 84 15 93/38 (56) 99 02/01/19 21:30 86 17 97/34 (55) 97 02/01/19 21:30 15 97/34 Mechanical Ventilator 40 02/01/19 21:15 85 15 107/55 (72) 99 02/01/19 21:15 16 107/55 Mechanical Ventilator 40 02/01/19 21:05 79 17 40 50 02/01/19 21:00 79 16 90/36 (54) 98 02/01/19 21:00 15 90/36 Mechanical Ventilator 40 02/01/19 20:56 81 15 78/48 (58) 99 02/01/19 20:52 79 18 93/34 (53) 100 02/01/19 20:47 78 15 84/39 (54) 96 02/01/19 20:45 16 79/40 Mechanical Ventilator 40 02/01/19 20:30 86 17 109/85 (93) 96 02/01/19 20:15 94 17 115/55 (75) 100 02/01/19 20:00 76 02/01/19 20:00 Mechanical Ventilator 02/01/19 20:00 98.4 79 13 133/63 (86) 100 02/01/19 19:57 78 14 110/52 (71) 100 02/01/19 19:45 14 110/52 Mechanical Ventilator 40 02/01/19 19:30 78 12 100 Mechanical Ventilator 40 02/01/19 19:30 15 95/53 Mechanical Ventilator 40 02/01/19 19:15 15 92/52 Mechanical Ventilator 50 02/01/19 19:11 77 16 100 Mechanical Ventilator 40 02/01/19 19:11 77 16 40 50 02/01/19 19:00 77 13 115/62 (79) 99 02/01/19 19:00 15 84/47 Mechanical Ventilator 50 Intake and Output 02/01/19 02/02/19 19:00 07:00 Intake Total 156.750 ml 1609.198 ml Output Total 330 ml 1685 ml Balance -173.250 ml -75.802 ml IV Total 156.750 ml 1609.198 ml Output Urine Total 50 ml 975 ml Drainage Total 280 ml 710 ml Laboratory Tests 02/02/19 05:00: White Blood Count 12.9H, Red Blood Count 2.72L, Hemoglobin 8.5L, Hematocrit 25.1L, Mean Corpuscular Volume 92, Mean Corpuscular Hemoglobin 31.2H, Mean Corpuscular Hemoglobin Concent 33.8, Red Cell Distribution Width 13.2, Platelet Count 234, Mean Platelet Volume 4.6L, Neutrophils (%) (Auto) 76.9H, Lymphocytes (%) (Auto) 13.2L, Monocytes (%) (Auto) 8.0, Eosinophils (%) (Auto) 1.2, Basophils (%) (Auto) 0.7, Sodium Level 141, Potassium Level 4.0, Chloride Level 102, Carbon Dioxide Level 36H, Anion Gap 3L, Blood Urea Nitrogen 23H, Creatinine 1.3, Estimat Glomerular Filtration Rate 57.3, Glucose Level 114H, Calcium Level 7.9L, Phosphorus Level 4.0, Magnesium Level 1.6L, Total Bilirubin 0.8, Aspartate Amino Transf (AST/SGOT) 44H, Alanine Aminotransferase (ALT/SGPT) 14, Alkaline Phosphatase 101, Total Protein 5.5L, Albumin 1.8L, Globulin 3.7, Albumin/Globulin Ratio 0.5L 02/02/19 07:50: Arterial Blood pH 7.467H, Arterial Blood Partial Pressure CO2 52.2H, Arterial Blood Partial Pressure O2 74.6L, Arterial Blood HCO3 36.9H, Arterial Blood Oxygen Saturation 94.3L, Arterial Blood Base Excess 11.7*H, Don Test Positive 02/02/19 09:10: Arterial Blood pH 7.469H, Arterial Blood Partial Pressure CO2 51.0H, Arterial Blood Partial Pressure O2 79.6, Arterial Blood HCO3 36.2H, Arterial Blood Oxygen Saturation 95.3, Arterial Blood Base Excess 11.2*H, Don Test Positive 02/02/19 15:00: Urine Color Yellow, Urine Appearance Clear, Urine pH 5, Urine Specific [place] 1.020, Urine Protein 1+H, Urine Glucose (UA) Negative, Urine Ketones Negative, Urine Blood 1+H, Urine Nitrite Negative, Urine Bilirubin Negative, Urine Urobilinogen Normal, Urine Leukocyte Esterase 1+H, Urine RBC 0-2H, Urine WBC 2-4 , Urine Squamous Epithelial Cells None, Urine Bacteria Few Height (Feet): 6 Height (Inches): 0.00 Weight (Pounds): 412 Cardiovascular: normal rate Respiratory/Chest: lungs clear Vadim Tang MD Feb 02, 2019 18:52
--- NOTE | 2019-02-02 19:30 | NUR ---
NURSE NOTES: Received pt in no acute distress. AAOX4, follow commands; currently denies pain; denies SOB. HOB elevated at 45 degrees. POD#1 S/P Panniculectomy. Abd dressing dry and intact. MARQUEZ drains x 3 intact, draining serosanginous fluid. FLOWERS's. Afberile; NSR, BP stable. Currently on 2l/m via NC saturating 96-98%. PICC on LARRY intact with IVF of D51/2NS running at 75 mls/h. Left leg cellulitis with clean and dry dressing. FC patent, draining dark alber urine. Scrotum edematous. Will continue to monitor for bleeding; vital signs and pain.
--- NOTE | 2019-02-02 19:34 | NUR ---
HAND-OFF: Report given to MICAELA Jones.
[2019-02-02] MEDS: Dyna-Hex 2% Top Sol 2oz TOPIC SCH (20:35)
--- NOTE | 2019-02-02 21:10 | NUR ---
NURSE NOTES: c/o pain on operated area, 04/06. Dilaudid 6mg IVP given. Pt also requested some jello, pt ate 100%, well tolerated. Took po meds with no problems.
--- NOTE | 2019-02-02 22:00 | NUR ---
NURSE NOTES: Sleeps on and off with HOB elevated. No distress. Makes multiple requests; needs anticipated. No seizure activity noted. Pt refused to have the bed rails padded. Pt grossly obese but on regular rajendra bed. Refused to be placed on a puma bed.
[2019-02-03] VITALS (15 sets, daily range): BP systolic 110–148; BP diastolic 49–83
--- NOTE | 2019-02-03 | NUR ---
NURSE NOTES: Afebrile, c/o pain on abdomen and legs 04/06. Dilaudid 6mg IVP given. Methadone 20 mg given po as scheduled. PICC line dressing changed
--- NOTE | 2019-02-03 02:00 | NUR ---
NURSE NOTES: Sleeping; on high jerome's position. VSS, no distress
--- NOTE | 2019-02-03 03:10 | NUR ---
NURSE NOTES: c/o pain 04/06; Dilaudid 6mg IVP given.
--- NOTE | 2019-02-03 04:00 | NUR ---
NURSE NOTES: Bathed. Scrotal area swollen, elevated on a rolled towel; skin flaky and itchy; A&D ointment applied. Redressed left leg and elevated. MARQUEZ drains intact. Abd dressing dry and intact; No BM, skin on sacral/buttocks area intact. Afebrile, BP stable. No further c/o pain.
--- NOTE | 2019-02-03 05:30 | NUR ---
NURSE NOTES: placed on the bedpan as pt wants to have BM. Passed gas instead.
[2019-02-03] MEDS: Aztreonam Inj 1 GM in NS 50 ML IVPB SCH ×4 (05:36→22:09)
[2019-02-03] MEDS: levETIRAcetam 500mg/5ml Liquid NG SCH ×3 (05:37→22:09)
--- NOTE | 2019-02-03 06:19 | NUR ---
NURSE NOTES: Again c/o pain on abdominal area and BLE; 04/06, Dilaudid 6mg IVP given. Methadone 20mg po given as scheduled. MARQUEZ drains intact, #1 drained 20ml, #2=30ml;#3 40ml all serosanginous
[2019-02-03 06:38] LABS: BASOPHILS % (AUTO) 0.4 % (0.0-2.0); EOSINOPHILS % (AUTO) 3.8 % (0.0-3.0); HEMATOCRIT 26.1 % (42.0-52.0); HEMOGLOBIN 8.4 G/DL (14.2-18.0); LYMPHOCYTES % (AUTO) 15.3 % (20.0-45.0); MEAN CORPUSCULAR VOLUME 93 FL (80-99); MONOCYTES % (AUTO) 7.8 % (1.0-10.0); NEUTROPHILS % (AUTO) 72.7 % (45.0-75.0); PLATELET COUNT 264 K/UL (150-450); RED CELL DISTRIBUTION WIDTH 13.6 % (11.6-14.8); WHITE BLOOD COUNT 12.6 K/UL (4.8-10.8)
--- NOTE | 2019-02-03 07:02 | NUR ---
HAND-OFF: Report given to Mary HINOJOSA.
[2019-02-03 07:03] LABS: ALANINE AMINOTRANSFERASE 16 U/L (12-78); ALBUMIN 1.9 G/DL (3.4-5.0); ALBUMIN/GLOBULIN RATIO 0.4 (1.0-2.7); ALKALINE PHOSPHATASE 110 U/L (46-116); ANION GAP 3 mmol/L (5-15); ASPARTATE AMINO TRANSFERASE 57 U/L (15-37); BILIRUBIN,TOTAL 0.7 MG/DL (0.2-1.0); BLOOD UREA NITROGEN 19 mg/dL (7-18); CALCIUM 8.4 MG/DL (8.5-10.1); CARBON DIOXIDE 37 MMOL/L (21-32); CHLORIDE 103 MMOL/L (98-107); CREATININE 1.2 MG/DL (0.55-1.30); PHOSPHORUS 3.8 MG/DL (2.5-4.9); POTASSIUM 3.9 MMOL/L (3.5-5.1); SODIUM 143 MMOL/L (136-145)
--- NOTE | 2019-02-03 07:16 | Plastic Surgery Progress Note ---
Plastic Surgery-Progress Note Subjective Procedure Performed Panniculectomy Symptoms: improved Additional Comments POD#2 s/p panniculectomy. Extubated. Comfortable. Objective Last 24 Hour Vital Signs Date Time Temp Pulse Resp B/P (MAP) Pulse Ox O2 Delivery O2 Flow Rate FiO2 02/03/19 06:00 90 15 137/70 (92) 97 02/03/19 05:00 85 12 116/61 (79) 96 02/03/19 04:00 Nasal Cannula 2.0 02/03/19 04:00 84 02/03/19 04:00 98.7 87 12 138/62 (87) 02/03/19 03:00 82 11 148/79 (102) 96 02/03/19 02:00 82 12 137/76 (96) 96 02/03/19 01:00 83 13 133/77 (95) 96 02/03/19 00:00 98.8 87 13 140/83 (102) 95 02/03/19 00:00 Nasal Cannula 2.0 02/03/19 00:00 84 02/02/19 23:00 90 12 130/74 (92) 96 02/02/19 22:00 90 13 113/57 (75) 96 02/02/19 21:00 81 14 133/69 (90) 96 02/02/19 20:00 Nasal Cannula 2.0 02/02/19 20:00 81 02/02/19 20:00 99.0 88 13 124/65 (84) 95 02/02/19 19:00 88 16 104/53 (70) 98 02/02/19 18:48 98.6 02/02/19 18:00 82 13 118/45 (69) 97 02/02/19 17:00 85 14 105/51 (69) 95 02/02/19 16:00 96.8 85 14 148/108 (121) 98 02/02/19 16:00 Mechanical Ventilator 02/02/19 16:00 87 02/02/19 15:00 82 14 182/107 (132) 98 02/02/19 14:00 82 14 176/111 (132) 98 02/02/19 13:01 82 14 97/51 (66) 95 02/02/19 12:00 85 02/02/19 12:00 85 14 105/51 (69) 95 02/02/19 12:00 Mechanical Ventilator 02/02/19 12:00 97.0 85 14 105/51 (69) 95 02/02/19 11:00 86 14 105/52 (69) 95 02/02/19 10:42 77 16 96 Cool Aerosol 12.0 40 02/02/19 10:39 Venturi Mask 12.0 40 02/02/19 10:00 85 13 109/50 (69) 95 02/02/19 09:00 84 14 106/50 (68) 95 02/02/19 08:35 95 02/02/19 08:34 80 12 40 02/02/19 08:19 84 100/47 02/02/19 08:15 14 105/52 Mechanical Ventilator 02/02/19 08:15 14 105/52 Mechanical Ventilator 02/02/19 08:10 86 19 40 40 02/02/19 08:07 12 92/44 Mechanical Ventilator 40 02/02/19 08:02 14 109/50 Mechanical Ventilator 02/02/19 08:02 14 109/50 Mechanical Ventilator 02/02/19 08:00 85 02/02/19 08:00 Mechanical Ventilator 02/02/19 08:00 99.8 84 11 100/47 (64) 98 02/02/19 08:00 40 02/02/19 07:30 14 106/50 Mechanical Ventilator 02/02/19 07:30 14 106/50 Mechanical Ventilator 02/02/19 07:15 11 100/47 Mechanical Ventilator 40 02/02/19 07:15 11 100/47 Mechanical Ventilator 40 I&O Intake and Output 02/02/19 02/03/19 19:00 07:00 Intake Total 2230.0 ml 1800.0 ml Output Total 560 ml 930 ml Balance 1670.0 ml 870.0 ml Intake Oral 1080 ml 600 ml IV Total 1150.0 ml 1200.0 ml Output Urine Total 560 ml 840 ml Drainage Total 90 ml Dressing: dry Wound: clean, dry Drains: other - JPs x 3, serous Abdomen: soft Skin Exam: normal inspection, normal color - Incision healing well. Skin flap viable with no signs of ischemia. Laboratory Tests Test 02/02/19 07:50 02/02/19 09:10 02/02/19 15:00 02/03/19 04:29 Arterial Blood pH 7.467 (7.350-7.450) 7.469 (7.350-7.450) Arterial Blood Partial Pressure CO2 52.2 mmHg (35.0-45.0) H 51.0 mmHg (35.0-45.0) H Arterial Blood Partial Pressure O2 74.6 mmHg (75.0-100.0) L 79.6 mmHg (75.0-100.0) Arterial Blood HCO3 36.9 mmol/L (22.0-26.0) H 36.2 mmol/L (22.0-26.0) H Arterial Blood Oxygen Saturation 94.3 % (95-100) L 95.3 % (95-100) Arterial Blood Base Excess 11.7 (-2-2) *H 11.2 (-2-2) *H Don Test Positive Positive Urine Color Yellow Urine Appearance Clear Urine pH 5 (4.5-8.0) Urine Specific [place] 1.020 (1.005-1.035) Urine Protein 1+ (NEGATIVE) H Urine Glucose (UA) Negative (NEGATIVE) Urine Ketones Negative (NEGATIVE) Urine Blood 1+ (NEGATIVE) H Urine Nitrite Negative (NEGATIVE) Urine Bilirubin Negative (NEGATIVE) Urine Urobilinogen Normal MG/DL (0.0-1.0) Urine Leukocyte Esterase 1+ (NEGATIVE) H Urine RBC 0-2 /HPF (0 - 0) H Urine WBC 2-4 /HPF (0 - 0) Urine Squamous Epithelial Cells None /LPF (NONE/OCC) Urine Bacteria Few /HPF (NONE) White Blood Count 12.6 K/UL (4.8-10.8) H Red Blood Count 2.80 M/UL (4.70-6.10) L Hemoglobin 8.4 G/DL (14.2-18.0) L Hematocrit 26.1 % (42.0-52.0) L Mean Corpuscular Volume 93 FL (80-99) Mean Corpuscular Hemoglobin 30.1 PG (27.0-31.0) Mean Corpuscular Hemoglobin Concent 32.3 G/DL (32.0-36.0) Red Cell Distribution Width 13.6 % (11.6-14.8) Platelet Count 264 K/UL (150-450) Mean Platelet Volume 4.6 FL (6.5-10.1) L Neutrophils (%) (Auto) 72.7 % (45.0-75.0) Lymphocytes (%) (Auto) 15.3 % (20.0-45.0) L Monocytes (%) (Auto) 7.8 % (1.0-10.0) Eosinophils (%) (Auto) 3.8 % (0.0-3.0) H Basophils (%) (Auto) 0.4 % (0.0-2.0) Erythrocyte Sedimentation Rate Pending Sodium Level 143 MMOL/L (136-145) Potassium Level 3.9 MMOL/L (3.5-5.1) Chloride Level 103 MMOL/L (98-107) Carbon Dioxide Level 37 MMOL/L (21-32) H Anion Gap 3 mmol/L (5-15) L Blood Urea Nitrogen 19 mg/dL (7-18) H Creatinine 1.2 MG/DL (0.55-1.30) Estimat Glomerular Filtration Rate > 60 mL/min (>60) Glucose Level 110 MG/DL (74-106) H Calcium Level 8.4 MG/DL (8.5-10.1) L Phosphorus Level 3.8 MG/DL (2.5-4.9) Magnesium Level 2.1 MG/DL (1.8-2.4) Total Bilirubin 0.7 MG/DL (0.2-1.0) Aspartate Amino Transf (AST/SGOT) 57 U/L (15-37) H Alanine Aminotransferase (ALT/SGPT) 16 U/L (12-78) Alkaline Phosphatase 110 U/L (46-116) C-Reactive Protein, Quantitative 31.6 mg/dL (0.00-0.90) H Total Protein 6.4 G/DL (6.4-8.2) Albumin 1.9 G/DL (3.4-5.0) L Globulin 4.5 g/dL Albumin/Globulin Ratio 0.4 (1.0-2.7) L Plan Additional Comments Doing well POD#2. Patient not to ambulate or lay flat as this would put too much tension on the incision. Ok to do PT in bed. Recommend dressing changes every other day starting tomorrow. Continue medical care per medical team. Reggie Roberts MD Feb 03, 2019 07:16
--- NOTE | 2019-02-03 07:46 | NUR ---
NURSE NOTES: Report received from MICAELA Jones
--- NOTE | 2019-02-03 08:09 | NUR ---
NURSE NOTES: Patient awake when received, no acute distress.Afebrile at this time.Abdominal dressing dry with no apparent discharge.F/C in place draining well.MARQUEZ in place draining pinkish drainage.Kept on close monitoring.
[2019-02-03] MEDS: DULoxetine 30mg cap ORAL SCH (09:00)
[2019-02-03] MEDS: Pantoprazole Inj IV SCH (09:00)
[2019-02-03] MEDS: Vancomycin 1.5gm Premix IVPB SCH (09:01)
[2019-02-03] MEDS: Miconazole 2% Cream 30gm TOPIC SCH ×2 (09:14→21:00)
--- NOTE | 2019-02-03 10:22 | NUR ---
NURSE NOTES: Seen by Dr Dixon, order to transfer to tele.Kept clean and dry.
[2019-02-03] MEDS ORDERED: D5 1/2NS 1000ml IV ONE (10:28)
[2019-02-03] MEDS ORDERED: NS 275ml ONE (10:28)
[2019-02-03] MEDS: D5 1/2NS 1,000 ML IV SCH ×4 (10:40→23:21)
--- NOTE | 2019-02-03 11:24 | NUR ---
AREA SUPERVISORTRICOT KNITTER SI: POD#2,LEUKOCYTOSIS T 98.6 HR 85 RR 12 B/P 137/71 2L NC O2 SAT @ 98% WBC 12.6 ESR 100 BUN 19 AST 57 IS: IVF D5NS @ 75ML/HR VANCO IV AZTREONAM IV TELE STATUS
--- NOTE | 2019-02-03 11:30 | NUR ---
HAND-OFF: Report given to MICAELA Walls.
[2019-02-03] MEDS ORDERED: LORazepam Inj 2mg/ml 1ml IV PRN (11:45)
[2019-02-03] MEDS ORDERED: Naloxone 0.4mg/ml Inj IV PRN ×2 (12:00)
--- NOTE | 2019-02-03 12:00 | NUR ---
NURSE NOTES: Nurse report given by MICAELA Hernandez from ICU. Patient's transferred to tele floor at 1200. playground monitor is hooked up, he's on 2L nasal cannula and continuous pulse oximeter monitor. Bed at lowest position and break engaged. SCD are applied on both legs. Surgical sites look clean and intact. 3 Williams Yang are connected at surgical sites. Patient has no sign of distress or SOB. Patient stated he's having pain 9/10. Vital signs are taken at bedside by MICAELA Hewitt. He's AO x4. Will continue to monitor closely.
[2019-02-03] MEDS ORDERED: Acetaminophen 650mg/20.3ml NG PRN (12:15)
--- NOTE | 2019-02-03 12:49 | NUR ---
NURSE NOTES: Pt is in 9/10 pain at the surgical site and generalized. Spoke with Toni from pharmacy who said fentanyl patch was ready and dilaudid can be given for breakthrough until fentanyl patch begins to work. Per protocol, because it is the first patch, put patient on continuous O2 saturation monitoring. Pt on 2 L NC with an O2 sat of 96%. Will monitor patient closely for respiratory distress.
--- NOTE | 2019-02-03 13:00 | NUR ---
NURSE NOTES: bath given and tried to have physical assessment on him. Patient refused to be turned and refused skin assessment upon transfer from ICU to TELE.
--- NOTE | 2019-02-03 13:15 | Surgery Progress Note ---
Surgery Progress Note Subjective Symptoms: improved, pain same, tolerating diet Objective Last 24 Hour Vital Signs Date Time Temp Pulse Resp B/P (MAP) Pulse Ox O2 Delivery O2 Flow Rate FiO2 02/03/19 12:00 98.5 81 16 141/70 (93) 96 02/03/19 11:00 77 10 125/61 (82) 97 02/03/19 10:00 80 10 133/65 (87) 97 02/03/19 09:50 98.6 02/03/19 09:14 100 Nasal Cannula 3.0 32 02/03/19 09:00 84 110/49 02/03/19 09:00 84 10 128/71 (90) 97 02/03/19 08:00 Nasal Cannula 2.0 02/03/19 08:00 84 02/03/19 08:00 85 10 110/49 (69) 97 02/03/19 07:00 98.6 85 12 137/71 (93) 02/03/19 06:00 90 15 137/70 (92) 97 02/03/19 05:00 85 12 116/61 (79) 96 02/03/19 04:00 Nasal Cannula 2.0 02/03/19 04:00 84 02/03/19 04:00 98.7 87 12 138/62 (87) 02/03/19 03:00 82 11 148/79 (102) 96 02/03/19 02:00 82 12 137/76 (96) 96 02/03/19 01:00 83 13 133/77 (95) 96 02/03/19 00:00 98.8 87 13 140/83 (102) 95 02/03/19 00:00 Nasal Cannula 2.0 02/03/19 00:00 84 02/02/19 23:00 90 12 130/74 (92) 96 02/02/19 22:00 90 13 113/57 (75) 96 02/02/19 21:00 81 14 133/69 (90) 96 02/02/19 20:00 Nasal Cannula 2.0 02/02/19 20:00 81 02/02/19 20:00 99.0 88 13 124/65 (84) 95 02/02/19 19:00 88 16 104/53 (70) 98 02/02/19 18:00 82 13 118/45 (69) 97 02/02/19 17:00 85 14 105/51 (69) 95 02/02/19 16:00 96.8 85 14 148/108 (121) 98 02/02/19 16:00 Mechanical Ventilator 02/02/19 16:00 87 02/02/19 15:00 82 14 182/107 (132) 98 02/02/19 14:00 82 14 176/111 (132) 98 I&O Intake and Output 02/02/19 02/03/19 19:00 07:00 Intake Total 2230.0 ml 1875.0 ml Output Total 810 ml 1000 ml Balance 1420.0 ml 875.0 ml Intake Oral 1080 ml 600 ml IV Total 1150.0 ml 1275.0 ml Output Urine Total 560 ml 910 ml Drainage Total 250 ml 90 ml Dressing: saturated Wound: clean Drains: lisbet Cardiovascular: RSR Respiratory: clear Abdomen: soft, non-tender Extremities: edema, no cyanosis Laboratory Tests Test 02/02/19 15:00 02/03/19 04:29 02/03/19 07:50 Urine Color Yellow Urine Appearance Clear Urine pH 5 (4.5-8.0) Urine Specific [place] 1.020 (1.005-1.035) Urine Protein 1+ (NEGATIVE) H Urine Glucose (UA) Negative (NEGATIVE) Urine Ketones Negative (NEGATIVE) Urine Blood 1+ (NEGATIVE) H Urine Nitrite Negative (NEGATIVE) Urine Bilirubin Negative (NEGATIVE) Urine Urobilinogen Normal MG/DL (0.0-1.0) Urine Leukocyte Esterase 1+ (NEGATIVE) H Urine RBC 0-2 /HPF (0 - 0) H Urine WBC 2-4 /HPF (0 - 0) Urine Squamous Epithelial Cells None /LPF (NONE/OCC) Urine Bacteria Few /HPF (NONE) White Blood Count 12.6 K/UL (4.8-10.8) H Red Blood Count 2.80 M/UL (4.70-6.10) L Hemoglobin 8.4 G/DL (14.2-18.0) L Hematocrit 26.1 % (42.0-52.0) L Mean Corpuscular Volume 93 FL (80-99) Mean Corpuscular Hemoglobin 30.1 PG (27.0-31.0) Mean Corpuscular Hemoglobin Concent 32.3 G/DL (32.0-36.0) Red Cell Distribution Width 13.6 % (11.6-14.8) Platelet Count 264 K/UL (150-450) Mean Platelet Volume 4.6 FL (6.5-10.1) L Neutrophils (%) (Auto) 72.7 % (45.0-75.0) Lymphocytes (%) (Auto) 15.3 % (20.0-45.0) L Monocytes (%) (Auto) 7.8 % (1.0-10.0) Eosinophils (%) (Auto) 3.8 % (0.0-3.0) H Basophils (%) (Auto) 0.4 % (0.0-2.0) Erythrocyte Sedimentation Rate 100 MM/HR (0-20) H Sodium Level 143 MMOL/L (136-145) Potassium Level 3.9 MMOL/L (3.5-5.1) Chloride Level 103 MMOL/L (98-107) Carbon Dioxide Level 37 MMOL/L (21-32) H Anion Gap 3 mmol/L (5-15) L Blood Urea Nitrogen 19 mg/dL (7-18) H Creatinine 1.2 MG/DL (0.55-1.30) Estimat Glomerular Filtration Rate > 60 mL/min (>60) Glucose Level 110 MG/DL (74-106) H Calcium Level 8.4 MG/DL (8.5-10.1) L Phosphorus Level 3.8 MG/DL (2.5-4.9) Magnesium Level 2.1 MG/DL (1.8-2.4) Total Bilirubin 0.7 MG/DL (0.2-1.0) Aspartate Amino Transf (AST/SGOT) 57 U/L (15-37) H Alanine Aminotransferase (ALT/SGPT) 16 U/L (12-78) Alkaline Phosphatase 110 U/L (46-116) C-Reactive Protein, Quantitative 31.6 mg/dL (0.00-0.90) H Total Protein 6.4 G/DL (6.4-8.2) Albumin 1.9 G/DL (3.4-5.0) L Globulin 4.5 g/dL Albumin/Globulin Ratio 0.4 (1.0-2.7) L Vancomycin Level Trough 12.5 ug/mL (5.0-12.0) H Plan Problems: (1) Cellulitis of groin, left (2) Cellulitis Assessment & Plan: chronic cellulitis of pannus s/p panniculectomy now extubated and recovering pain controlled Doing well POD#2. Patient not to ambulate or lay flat as this would put too much tension on the incision. Ok to do PT in bed. Recommend dressing changes every other day starting tomorrow. okay for diet -iv fluids -iv abx -drain care -keep lindsey in place -AM labs will follow with recs (3) COPD (chronic obstructive pulmonary disease) (4) Morbid obesity (5) Lumbar spondylosis (6) Right heart failure (7) ADALBERTO (obstructive sleep apnea) (8) Abdominal pannus (9) Neuropathy (10) Seizures (11) Cerebrovascular accident (12) Peripheral edema (13) Abdominal wall cellulitis (14) UTI (urinary tract infection) (15) Hyponatremia (16) Leg pain (17) Uncontrolled seizures (18) Muscle spasticity (19) Knee osteomyelits, right Gt Fernandez Feb 03, 2019 13:15
--- NOTE | 2019-02-03 13:50 | Cardiac Electrophysiology PN ---
Assessment/Plan Assessment/Plan 1. Hypertension. On amlodipine 5 daily and off. EF 60% 2. Severe bilateral lower extremity edema and cellulitis. On IV antibiotic per Dr. Patterson. 3. Abdominal pannus.S/P Resection of pannus 02/01/19 Tolerated surgery with no cardiac issues. 4. COPD and ADALBERTO. 5. S/P Resp failure, extubated 6. Right heart failure. 7. Lumbar spondylosis. 8. Morbid obesity. DW RN Subjective Subjective Transferred out of ICU. No CP or SOB Objective Last 24 Hour Vital Signs Date Time Temp Pulse Resp B/P (MAP) Pulse Ox O2 Delivery O2 Flow Rate FiO2 02/03/19 12:00 98.5 81 16 141/70 (93) 96 02/03/19 11:00 77 10 125/61 (82) 97 02/03/19 10:00 80 10 133/65 (87) 97 02/03/19 09:50 98.6 02/03/19 09:14 100 Nasal Cannula 3.0 32 02/03/19 09:00 84 110/49 02/03/19 09:00 84 10 128/71 (90) 97 02/03/19 08:00 Nasal Cannula 2.0 02/03/19 08:00 84 02/03/19 08:00 85 10 110/49 (69) 97 02/03/19 07:00 98.6 85 12 137/71 (93) 02/03/19 06:00 90 15 137/70 (92) 97 02/03/19 05:00 85 12 116/61 (79) 96 02/03/19 04:00 Nasal Cannula 2.0 02/03/19 04:00 84 02/03/19 04:00 98.7 87 12 138/62 (87) 02/03/19 03:00 82 11 148/79 (102) 96 02/03/19 02:00 82 12 137/76 (96) 96 02/03/19 01:00 83 13 133/77 (95) 96 02/03/19 00:00 98.8 87 13 140/83 (102) 95 02/03/19 00:00 Nasal Cannula 2.0 02/03/19 00:00 84 02/02/19 23:00 90 12 130/74 (92) 96 02/02/19 22:00 90 13 113/57 (75) 96 02/02/19 21:00 81 14 133/69 (90) 96 02/02/19 20:00 Nasal Cannula 2.0 02/02/19 20:00 81 02/02/19 20:00 99.0 88 13 124/65 (84) 95 02/02/19 19:00 88 16 104/53 (70) 98 02/02/19 18:00 82 13 118/45 (69) 97 02/02/19 17:00 85 14 105/51 (69) 95 02/02/19 16:00 96.8 85 14 148/108 (121) 98 02/02/19 16:00 Mechanical Ventilator 02/02/19 16:00 87 02/02/19 15:00 82 14 182/107 (132) 98 02/02/19 14:00 82 14 176/111 (132) 98 Intake and Output 02/02/19 02/03/19 19:00 07:00 Intake Total 2230.0 ml 1875.0 ml Output Total 810 ml 1000 ml Balance 1420.0 ml 875.0 ml Intake Oral 1080 ml 600 ml IV Total 1150.0 ml 1275.0 ml Output Urine Total 560 ml 910 ml Drainage Total 250 ml 90 ml Laboratory Tests Test 02/02/19 15:00 02/03/19 04:29 02/03/19 07:50 Urine Color Yellow Urine Appearance Clear Urine pH 5 (4.5-8.0) Urine Specific [place] 1.020 (1.005-1.035) Urine Protein 1+ (NEGATIVE) H Urine Glucose (UA) Negative (NEGATIVE) Urine Ketones Negative (NEGATIVE) Urine Blood 1+ (NEGATIVE) H Urine Nitrite Negative (NEGATIVE) Urine Bilirubin Negative (NEGATIVE) Urine Urobilinogen Normal MG/DL (0.0-1.0) Urine Leukocyte Esterase 1+ (NEGATIVE) H Urine RBC 0-2 /HPF (0 - 0) H Urine WBC 2-4 /HPF (0 - 0) Urine Squamous Epithelial Cells None /LPF (NONE/OCC) Urine Bacteria Few /HPF (NONE) White Blood Count 12.6 K/UL (4.8-10.8) H Red Blood Count 2.80 M/UL (4.70-6.10) L Hemoglobin 8.4 G/DL (14.2-18.0) L Hematocrit 26.1 % (42.0-52.0) L Mean Corpuscular Volume 93 FL (80-99) Mean Corpuscular Hemoglobin 30.1 PG (27.0-31.0) Mean Corpuscular Hemoglobin Concent 32.3 G/DL (32.0-36.0) Red Cell Distribution Width 13.6 % (11.6-14.8) Platelet Count 264 K/UL (150-450) Mean Platelet Volume 4.6 FL (6.5-10.1) L Neutrophils (%) (Auto) 72.7 % (45.0-75.0) Lymphocytes (%) (Auto) 15.3 % (20.0-45.0) L Monocytes (%) (Auto) 7.8 % (1.0-10.0) Eosinophils (%) (Auto) 3.8 % (0.0-3.0) H Basophils (%) (Auto) 0.4 % (0.0-2.0) Erythrocyte Sedimentation Rate 100 MM/HR (0-20) H Sodium Level 143 MMOL/L (136-145) Potassium Level 3.9 MMOL/L (3.5-5.1) Chloride Level 103 MMOL/L (98-107) Carbon Dioxide Level 37 MMOL/L (21-32) H Anion Gap 3 mmol/L (5-15) L Blood Urea Nitrogen 19 mg/dL (7-18) H Creatinine 1.2 MG/DL (0.55-1.30) Estimat Glomerular Filtration Rate > 60 mL/min (>60) Glucose Level 110 MG/DL (74-106) H Calcium Level 8.4 MG/DL (8.5-10.1) L Phosphorus Level 3.8 MG/DL (2.5-4.9) Magnesium Level 2.1 MG/DL (1.8-2.4) Total Bilirubin 0.7 MG/DL (0.2-1.0) Aspartate Amino Transf (AST/SGOT) 57 U/L (15-37) H Alanine Aminotransferase (ALT/SGPT) 16 U/L (12-78) Alkaline Phosphatase 110 U/L (46-116) C-Reactive Protein, Quantitative 31.6 mg/dL (0.00-0.90) H Total Protein 6.4 G/DL (6.4-8.2) Albumin 1.9 G/DL (3.4-5.0) L Globulin 4.5 g/dL Albumin/Globulin Ratio 0.4 (1.0-2.7) L Vancomycin Level Trough 12.5 ug/mL (5.0-12.0) H Microbiology Date/Time Source Procedure Growth Status 02/01/19 17:00 Sputum Gram Stain - Final Complete 02/01/19 17:00 Sputum Sputum Culture - Final NORMAL UPPER RESPIRATORY EDITH PRESENT Complete Objective HEAD AND NECK: No JVD. LUNGS: Clear. CARDIOVASCULAR: Regular S1 and S2 with no gallop or murmur. ABDOMEN: Very swollen, erythematous, and enlarged scrotum. S/P abdominal surgery with 3 drains EXTREMITIES: 2+ pitting edema and cellulitis of the legs. Carlos Yee MD Feb 03, 2019 13:50
--- NOTE | 2019-02-03 13:59 | Infectious Diseases Prog Note ---
Assessment/Plan Assessment/Plan Assessment: 02/01 SP Panniculectomy VDRF (post-op)- s/p extubation 02/02 Low grade fever x1 Mild leukocytosis- likely post op -02/01 CXR: Mild interstitial congestive changes persist, stable sp cx normal resp wesley (prelim) R groin swelling and pain- 2ry from Volume overload Sandy intertrigo; improving B/l Leg cellulitis and panniculitis - in the setting of chronic venous stasis, s /p Rx Active infectious cellulitis essentially resolved. Now he has chronic venous stasis and neuropathic pain with poorly healing wounds. Alot off this is due to the severe swelling in his feet but also he is poorly compliant with wound care instructions. Afebrile No leukocytosis Recent seizure episode -had L side weakness and spasticity CVA HTN bipolar disorder w/ psychotic features tobacco abuse anxiety disorder chronic pain CHF seizure disorder COPD morbid obesity Dm2 HTN SNF resident Plan: -Started on empiric IV Vancomycin and Aztreonam #3 per pulm; continue for now pending repeat cultures -Cont Miconazole topical - Needs wound care for healing. -01/26 SP Fluconzole #5 - 01/07/19 SP IV Dapto d# 14 - 01/06/19 S/P Levofloxacin #7 - 12/25 sp Bactrim #4/14 and add IV Ancef #3/14 for cellulitis - Monitor CBC/CMP, temperatures - aspiration precautions - wound care per hospital protocol -plastic sx f/u -f/u u/a w/ reflex, Bcx x2 Subjective Allergies: Coded Allergies: ASPIRIN (Verified Allergy, Unknown, 07/14/18) KETOROLAC (Verified Allergy, Unknown, 07/14/18) PENICILLINS (Verified Allergy, Unknown, 12/23/18) tolerated Ancef on 08/2018 Subjective extubated yesterday and transferred to telemetry Objective Vital Signs Last 24 Hour Vital Signs Date Time Temp Pulse Resp B/P (MAP) Pulse Ox O2 Delivery O2 Flow Rate FiO2 02/03/19 12:00 98.5 81 16 141/70 (93) 96 02/03/19 11:00 77 10 125/61 (82) 97 02/03/19 10:00 80 10 133/65 (87) 97 02/03/19 09:50 98.6 02/03/19 09:14 100 Nasal Cannula 3.0 32 02/03/19 09:00 84 110/49 02/03/19 09:00 84 10 128/71 (90) 97 02/03/19 08:00 Nasal Cannula 2.0 02/03/19 08:00 84 02/03/19 08:00 85 10 110/49 (69) 97 02/03/19 07:00 98.6 85 12 137/71 (93) 02/03/19 06:00 90 15 137/70 (92) 97 02/03/19 05:00 85 12 116/61 (79) 96 02/03/19 04:00 Nasal Cannula 2.0 02/03/19 04:00 84 02/03/19 04:00 98.7 87 12 138/62 (87) 02/03/19 03:00 82 11 148/79 (102) 96 02/03/19 02:00 82 12 137/76 (96) 96 02/03/19 01:00 83 13 133/77 (95) 96 02/03/19 00:00 98.8 87 13 140/83 (102) 95 02/03/19 00:00 Nasal Cannula 2.0 02/03/19 00:00 84 02/02/19 23:00 90 12 130/74 (92) 96 02/02/19 22:00 90 13 113/57 (75) 96 02/02/19 21:00 81 14 133/69 (90) 96 02/02/19 20:00 Nasal Cannula 2.0 02/02/19 20:00 81 02/02/19 20:00 99.0 88 13 124/65 (84) 95 02/02/19 19:00 88 16 104/53 (70) 98 02/02/19 18:00 82 13 118/45 (69) 97 02/02/19 17:00 85 14 105/51 (69) 95 02/02/19 16:00 96.8 85 14 148/108 (121) 98 02/02/19 16:00 Mechanical Ventilator 02/02/19 16:00 87 02/02/19 15:00 82 14 182/107 (132) 98 02/02/19 14:00 82 14 176/111 (132) 98 Height (Feet): 6 Height (Inches): 0.00 Weight (Pounds): 418 Objective General Appearance: alert, moderate distress, obese Head: atraumatic Eyes: bilateral eye normal inspection ENT: normal ENT inspection, hearing grossly normal, normal voice Neck: normal inspection, full range of motion, supple, no bony tend Respiratory: normal inspection, lungs clear, normal breath sounds, no respiratory distress, no retraction, no wheezing Cardiovascular #1: regular rate, rhythm Gastrointestinal: normal inspection, normal bowel sounds, soft, no guarding, no hernia, other - Left lower abdominal area Genitourinary: other - Swollen groin edematous erythematous enlarged scrotum Musculoskeletal: normal inspection, back normal, normal range of motion Neurologic: normal inspection, alert, responsive, speech normal Psychiatric: depressed affect, anxious Skin: normal inspection, normal color, no rash Microbiology Date/Time Source Procedure Growth Status 02/01/19 17:00 Sputum Gram Stain - Final Complete 02/01/19 17:00 Sputum Sputum Culture - Final NORMAL UPPER RESPIRATORY WESLEY PRESENT Complete Laboratory Tests Test 02/02/19 15:00 02/03/19 04:29 02/03/19 07:50 Urine Color Yellow Urine Appearance Clear Urine pH 5 (4.5-8.0) Urine Specific [place] 1.020 (1.005-1.035) Urine Protein 1+ (NEGATIVE) H Urine Glucose (UA) Negative (NEGATIVE) Urine Ketones Negative (NEGATIVE) Urine Blood 1+ (NEGATIVE) H Urine Nitrite Negative (NEGATIVE) Urine Bilirubin Negative (NEGATIVE) Urine Urobilinogen Normal MG/DL (0.0-1.0) Urine Leukocyte Esterase 1+ (NEGATIVE) H Urine RBC 0-2 /HPF (0 - 0) H Urine WBC 2-4 /HPF (0 - 0) Urine Squamous Epithelial Cells None /LPF (NONE/OCC) Urine Bacteria Few /HPF (NONE) White Blood Count 12.6 K/UL (4.8-10.8) H Red Blood Count 2.80 M/UL (4.70-6.10) L Hemoglobin 8.4 G/DL (14.2-18.0) L Hematocrit 26.1 % (42.0-52.0) L Mean Corpuscular Volume 93 FL (80-99) Mean Corpuscular Hemoglobin 30.1 PG (27.0-31.0) Mean Corpuscular Hemoglobin Concent 32.3 G/DL (32.0-36.0) Red Cell Distribution Width 13.6 % (11.6-14.8) Platelet Count 264 K/UL (150-450) Mean Platelet Volume 4.6 FL (6.5-10.1) L Neutrophils (%) (Auto) 72.7 % (45.0-75.0) Lymphocytes (%) (Auto) 15.3 % (20.0-45.0) L Monocytes (%) (Auto) 7.8 % (1.0-10.0) Eosinophils (%) (Auto) 3.8 % (0.0-3.0) H Basophils (%) (Auto) 0.4 % (0.0-2.0) Erythrocyte Sedimentation Rate 100 MM/HR (0-20) H Sodium Level 143 MMOL/L (136-145) Potassium Level 3.9 MMOL/L (3.5-5.1) Chloride Level 103 MMOL/L (98-107) Carbon Dioxide Level 37 MMOL/L (21-32) H Anion Gap 3 mmol/L (5-15) L Blood Urea Nitrogen 19 mg/dL (7-18) H Creatinine 1.2 MG/DL (0.55-1.30) Estimat Glomerular Filtration Rate > 60 mL/min (>60) Glucose Level 110 MG/DL (74-106) H Calcium Level 8.4 MG/DL (8.5-10.1) L Phosphorus Level 3.8 MG/DL (2.5-4.9) Magnesium Level 2.1 MG/DL (1.8-2.4) Total Bilirubin 0.7 MG/DL (0.2-1.0) Aspartate Amino Transf (AST/SGOT) 57 U/L (15-37) H Alanine Aminotransferase (ALT/SGPT) 16 U/L (12-78) Alkaline Phosphatase 110 U/L (46-116) C-Reactive Protein, Quantitative 31.6 mg/dL (0.00-0.90) H Total Protein 6.4 G/DL (6.4-8.2) Albumin 1.9 G/DL (3.4-5.0) L Globulin 4.5 g/dL Albumin/Globulin Ratio 0.4 (1.0-2.7) L Vancomycin Level Trough 12.5 ug/mL (5.0-12.0) H Current Medications Medications (Trade) Dose Ordered Sig/Luis Route PRN Reason Start Time Stop Time Status Last Admin Dose Admin Acetaminophen (Tylenol) 650 mg Q4H PRN NG T>100.5 02/03/19 12:15 03/04/19 04:14 Amlodipine Besylate (Norvasc) 5 mg DAILY ORAL 02/04/19 09:00 02/22/19 08:59 Aztreonam 1 gm/ Sodium Chloride 50 ml @ 100 mls/hr EVERY 8 HOURS IVPB 02/03/19 14:00 02/08/19 21:59 Chlorhexidine Gluconate (Ruby-Hex 2%) 1 applic DAILY@2000 TOPIC 02/03/19 20:00 02/26/19 19:59 Dextrose (Dextrose 50%) 25 ml Q30M PRN IV Hypoglycemia 02/03/19 11:30 02/21/19 10:59 Dextrose (Dextrose 50%) 50 ml Q30M PRN IV hypoglycemia 02/03/19 11:30 02/21/19 10:59 Dextrose/Sodium Chloride 1,000 ml @ 75 mls/hr [id number] IV 02/03/19 11:30 03/03/19 18:39 Duloxetine HCl (Cymbalta) 30 mg DAILY ORAL 02/04/19 09:00 02/22/19 08:59 Fentanyl (Duragesic) 1 patch Q72H TDERMAL 02/03/19 12:00 02/10/19 11:59 02/03/19 12:35 Hydromorphone HCl (Dilaudid) 6 mg Q3H PRN IV BREAKTHROUGH PAIN 02/03/19 13:00 02/08/19 12:59 02/03/19 12:36 Levetiracetam (Keppra) 1,000 mg Q8HR NG 02/03/19 14:00 02/21/19 13:59 Lorazepam (Ativan 2mg/ml 1ml) 2 mg Q4H PRN IV For Anxiety 02/03/19 11:45 02/08/19 15:44 Methadone HCl (Methadone HCl) 20 mg ONCE PRN ORAL If Dilaudid PRN ineffective 02/03/19 12:30 02/03/19 23:59 Miconazole Nitrate (Miconazole Nitrate) 1 applic BID TOPIC 02/03/19 18:00 02/21/19 13:59 Miscellaneous Medication (fentaNYL Destruction) 1 ea Q72H MISC 02/06/19 12:00 03/08/19 11:59 Naloxone HCl (Narcan) 0.1 mg PRN IV Sedation scale 3 or 4 02/03/19 12:00 04/04/19 11:59 Ondansetron HCl (Zofran) 4 mg Q6H PRN IVP Nausea & Vomiting 02/03/19 12:00 03/03/19 11:59 Pantoprazole (Protonix) 40 mg DAILY IV 02/04/19 09:00 03/04/19 08:59 Vancomycin HCl (Vanco rx to dose) 1 ea DAILY PRN MISC Per rx protocol 02/03/19 12:00 03/05/19 11:59 Vancomycin HCl/ Dextrose 275 ml @ 183.333 mls/hr Q8H IVPB 02/03/19 17:00 02/08/19 16:59 Alexa Patterson M.D. Feb 03, 2019 13:59
--- NOTE | 2019-02-03 16:45 | Progress Note ---
DATE: 02/03/2019 SUBJECTIVE: This is a 53-year-old male patient with cellulitis. He is confused, disorganized, decline in cognition below his baseline that is why he does require inpatient treatment at this time. He is confused, disorganized. He has got mood lability, decline in cognition below his baseline that is why his attending physician has requested daily psychiatric consultation. DIAGNOSIS: Major depressive disorder, mild, recurrent, without psychotic features. PLAN: Continue treatment with Cymbalta 30 mg a day and Ativan as needed. Provided him with 20 minutes of reality-based supportive psychotherapy. Chart reviewed. Discussed with staff. Seen and assessed in his room. Laney Mcghee M.D. DR: Doretha JOB#: [id number] CC:
[2019-02-03] MEDS ORDERED: Vancomycin 1.25gm Premix IVPB SCH (17:00)
[2019-02-03] MEDS: D5W IVPB SCH (18:00)
[2019-02-03] MEDS: VANCOMYCIN IVPB SCH (18:00)
[2019-02-03] MEDS ORDERED: Miconazole 2% Cream 30gm TOPIC SCH (18:00)
--- NOTE | 2019-02-03 18:23 | NUR ---
NURSE NOTES: Patient refused Miconazole Cream for 1800 schedule because he wanted to have pain medication. Will administer when dose is due at 1849 because he stated he wants to be painless before I apply the cream.
--- NOTE | 2019-02-03 19:25 | NUR ---
HAND-OFF: Report given to MICAELA Domínguez. Pt is in stable condition; plan of care endorsed. Addendum: 02/03/19 at 1926 by RUPERT CHAMBERLAIN RN report given to ROSSANA
--- NOTE | 2019-02-03 19:30 | NUR ---
NURSE NOTES: Received pt. from Meghana HINOJOSA and MICAELA Hewitt. Pt. in bed on high fowlers position showing no signs of acute distress. Respiration even and non labored on 2L NC O2. No sob noted. VS stable, monitor worker showing SR. Pt. is noted with MARQUEZ drains x3 (2 on right abd, and 1 on left abd.) draining serosanguineous and intact. ABD binder intact, no signs of bleeding noted. Pt. is noted on Pires cath, patent, intact and draining. PICC on left UA noted running D5 0.45 NS at 75ml/hr. Bed in lowest position, wheels locked and alarm on. Call light within reach. All needs attended and met. Will continue plan of care.
[2019-02-03] MEDS: Dyna-Hex 2% Top Sol 2oz TOPIC SCH (22:05)
--- NOTE | 2019-02-03 22:45 | General Progress Note ---
Assessment/Plan Problem List: (1) Uncontrolled seizures ICD Codes: R56.9 - Unspecified convulsions SNOMED: 96089784 (2) Hyponatremia ICD Codes: E87.1 - Hypo-osmolality and hyponatremia SNOMED: 06355649 (3) Leg pain ICD Codes: M79.606 - Pain in leg, unspecified SNOMED: 99125031 (4) Cellulitis ICD Codes: L03.90 - Cellulitis, unspecified SNOMED: 854934141 (5) COPD (chronic obstructive pulmonary disease) ICD Codes: J44.9 - Chronic obstructive pulmonary disease, unspecified SNOMED: 33783391 (6) Lumbar spondylosis ICD Codes: M47.816 - Spondylosis without myelopathy or radiculopathy, lumbar region SNOMED: 960362389 (7) Right heart failure ICD Codes: I50.810 - Right heart failure, unspecified SNOMED: 409974891 (8) ADALBERTO (obstructive sleep apnea) ICD Codes: G47.33 - Obstructive sleep apnea (adult) (pediatric) SNOMED: 33921953 (9) Neuropathy ICD Codes: G62.9 - Polyneuropathy, unspecified SNOMED: 089577118 (10) Seizures ICD Codes: R56.9 - Unspecified convulsions SNOMED: 75807783 (11) Cerebrovascular accident ICD Codes: I63.9 - Cerebral infarction, unspecified SNOMED: 960943849 (12) Peripheral edema ICD Codes: R60.9 - Edema, unspecified SNOMED: 755590083 (13) UTI (urinary tract infection) ICD Codes: N39.0 - Urinary tract infection, site not specified SNOMED: 42352548 Status: stable, progressing Assessment/Plan: sepsis.improving neuropathy s/p cva no acute events no sob not hypoxic afebrile reviewed chart and labs and meds Subjective ROS Limited/Unobtainable: Yes Allergies: Coded Allergies: ASPIRIN (Verified Allergy, Unknown, 07/14/18) KETOROLAC (Verified Allergy, Unknown, 07/14/18) PENICILLINS (Verified Allergy, Unknown, 12/23/18) tolerated Ancef on 08/2018 Objective Last 24 Hour Vital Signs Date Time Temp Pulse Resp B/P (MAP) Pulse Ox O2 Delivery O2 Flow Rate FiO2 02/03/19 16:00 97.9 90 20 146/78 (100) 97 02/03/19 16:00 77 02/03/19 14:00 85 02/03/19 12:00 98.5 81 16 141/70 (93) 96 02/03/19 11:00 77 10 125/61 (82) 97 02/03/19 10:00 80 10 133/65 (87) 97 02/03/19 09:50 98.6 02/03/19 09:14 100 Nasal Cannula 3.0 32 02/03/19 09:00 84 110/49 02/03/19 09:00 84 10 128/71 (90) 97 02/03/19 08:00 Nasal Cannula 2.0 02/03/19 08:00 84 02/03/19 08:00 85 10 110/49 (69) 97 02/03/19 07:00 98.6 85 12 137/71 (93) 02/03/19 06:00 90 15 137/70 (92) 97 02/03/19 05:00 85 12 116/61 (79) 96 02/03/19 04:00 Nasal Cannula 2.0 02/03/19 04:00 84 02/03/19 04:00 98.7 87 12 138/62 (87) 02/03/19 03:00 82 11 148/79 (102) 96 02/03/19 02:00 82 12 137/76 (96) 96 02/03/19 01:00 83 13 133/77 (95) 96 02/03/19 00:00 98.8 87 13 140/83 (102) 95 02/03/19 00:00 Nasal Cannula 2.0 02/03/19 00:00 84 02/02/19 23:00 90 12 130/74 (92) 96 Intake and Output 02/02/19 02/03/19 19:00 07:00 Intake Total 2230.0 ml 1875.0 ml Output Total 810 ml 1000 ml Balance 1420.0 ml 875.0 ml Intake Oral 1080 ml 600 ml IV Total 1150.0 ml 1275.0 ml Output Urine Total 560 ml 910 ml Drainage Total 250 ml 90 ml Laboratory Tests 02/03/19 04:29: White Blood Count 12.6H, Red Blood Count 2.80L, Hemoglobin 8.4L, Hematocrit 26.1L, Mean Corpuscular Volume 93, Mean Corpuscular Hemoglobin 30.1, Mean Corpuscular Hemoglobin Concent 32.3, Red Cell Distribution Width 13.6, Platelet Count 264, Mean Platelet Volume 4.6L, Neutrophils (%) (Auto) 72.7, Lymphocytes ( %) (Auto) 15.3L, Monocytes (%) (Auto) 7.8, Eosinophils (%) (Auto) 3.8H, Basophils (%) (Auto) 0.4, Erythrocyte Sedimentation Rate 100H, Sodium Level 143 , Potassium Level 3.9, Chloride Level 103, Carbon Dioxide Level 37H, Anion Gap 3L, Blood Urea Nitrogen 19H, Creatinine 1.2, Estimat Glomerular Filtration Rate > 60, Glucose Level 110H, Calcium Level 8.4L, Phosphorus Level 3.8, Magnesium Level 2.1, Total Bilirubin 0.7, Aspartate Amino Transf (AST/SGOT) 57H, Alanine Aminotransferase (ALT/SGPT) 16, Alkaline Phosphatase 110, C-Reactive Protein, Quantitative 31.6H, Total Protein 6.4, Albumin 1.9L, Globulin 4.5, Albumin/ Globulin Ratio 0.4L 02/03/19 07:50: Vancomycin Level Trough 12.5H Height (Feet): 6 Height (Inches): 0.00 Weight (Pounds): 418 Neck: supple Cardiovascular: normal rate Respiratory/Chest: lungs clear Abdomen: soft Vadim Tang MD Feb 03, 2019 22:45
[2019-02-04] VITALS: BP 141/63
[2019-02-04] MEDS: D5W IVPB SCH ×3 (01:22→17:22)
[2019-02-04] MEDS: VANCOMYCIN IVPB SCH ×3 (01:22→17:22)
[2019-02-04 04:00] VITALS: BP 120/63
[2019-02-04] MEDS: levETIRAcetam 500mg/5ml Liquid NG SCH ×3 (05:37→22:04)
[2019-02-04] MEDS: Aztreonam Inj 1 GM in NS 50 ML IVPB SCH ×2 (05:37→12:49)
--- NOTE | 2019-02-04 07:25 | NUR ---
Received pt. patient resting in his bed on high fowlers position showing no signs of acute distress and pain at this time. Respiration even and non labored on 2L NC O2. No sob noted. VS stable. MARQUEZ drains x3 noted (2 on right abd, and 1 on left abd.) draining serosanguineous and intact. ABD binder intact, no signs of bleeding noted. Pt. is noted on Pires cath, patent, intact and draining by gravity and contain 100 cc dark yellow color urine. PICC on left UA noted running D5 0.45 NS at 75ml/hr. Bed in lowest position, wheels locked and alarm on. Call light within reach. per report : unable to get patient weight as the bed scale needs to be zeroed for accurate reading. However, patient refused to get out of his bed d/t pain. Will continue plan of
--- NOTE | 2019-02-04 07:30 | NUR ---
HAND-OFF: Report given to MICAELA Fofana.
[2019-02-04] MEDS: DULoxetine 30mg cap ORAL SCH (08:04)
[2019-02-04] MEDS: Pantoprazole Inj IV SCH (08:05)
[2019-02-04] MEDS: Miconazole 2% Cream 30gm TOPIC SCH ×2 (08:06→20:33)
[2019-02-04 08:07] VITALS: BP 129/79
--- NOTE | 2019-02-04 11:16 | Pulmonology Progress Note ---
Assessment/Plan Problems: (1) Abdominal pannus (2) COPD (chronic obstructive pulmonary disease) (3) ADALBERTO (obstructive sleep apnea) (4) Right heart failure (5) Lumbar spondylosis (6) Morbid obesity Assessment/Plan still three tubes draining off lasix needs to be on low calorie diet, pain is better controlled with Fentanyl patch labs in am symptomatic treatment dvt prophylaxis. pt/ot once all tubes got disconnected. Subjective ROS Limited/Unobtainable: No Interval Events: pain is better controlled Allergies: Coded Allergies: ASPIRIN (Verified Allergy, Unknown, 07/14/18) KETOROLAC (Verified Allergy, Unknown, 07/14/18) PENICILLINS (Verified Allergy, Unknown, 12/23/18) tolerated Ancef on 08/2018 Objective Last 24 Hour Vital Signs Date Time Temp Pulse Resp B/P (MAP) Pulse Ox O2 Delivery O2 Flow Rate FiO2 02/04/19 09:26 Nasal Cannula 2.0 02/04/19 08:40 97.7 02/04/19 08:09 78 129/79 02/04/19 08:07 97.7 78 18 129/79 (96) 94 02/04/19 07:40 97 Nasal Cannula 3.0 32 02/04/19 04:00 77 02/04/19 04:00 97.8 79 18 120/63 (82) 94 02/04/19 00:00 97.8 82 18 141/63 (89) 97 02/04/19 00:00 77 02/03/19 21:00 Nasal Cannula 2.0 02/03/19 20:12 99 Nasal Cannula 3.0 32 02/03/19 20:00 97.8 80 18 129/68 (88) 96 02/03/19 20:00 78 02/03/19 16:00 97.9 90 20 146/78 (100) 97 02/03/19 16:00 77 02/03/19 14:00 85 02/03/19 12:00 98.5 81 16 141/70 (93) 96 Intake and Output 02/03/19 02/04/19 19:00 07:00 Intake Total 1175.0 ml 700 ml Output Total 450 ml 2255 ml Balance 725.0 ml -1555 ml Intake Oral 600 ml 700 ml IV Total 575.0 ml Output Urine Total 450 ml 2000 ml Drainage Total 255 ml Objective General Appearance: WD/WN HEENT: normocephalic Respiratory/Chest: chest wall non-tender,decreased breath sounds Cardiovascular: normal peripheral pulses, normal rate Abdomen: normal bowel sounds, soft, massive fat amount Genitourinary: swollen testicles, Extremities: extreme edema Microbiology Date/Time Source Procedure Growth Status 02/02/19 14:30 Blood Blood Culture - Preliminary NO GROWTH AFTER 24 HOURS Resulted 02/02/19 14:20 Blood Blood Culture - Preliminary NO GROWTH AFTER 24 HOURS Resulted 02/01/19 17:00 Sputum Gram Stain - Final Complete 02/01/19 17:00 Sputum Sputum Culture - Final NORMAL UPPER RESPIRATORY EDITH PRESENT Complete Current Medications Medications (Trade) Dose Ordered Sig/Luis Route PRN Reason Start Time Stop Time Status Last Admin Dose Admin Acetaminophen (Tylenol) 650 mg Q4H PRN NG T>100.5 02/03/19 12:15 03/04/19 04:14 Amlodipine Besylate (Norvasc) 5 mg DAILY ORAL 02/04/19 09:00 02/22/19 08:59 02/04/19 08:09 Aztreonam 1 gm/ Sodium Chloride 50 ml @ 100 mls/hr EVERY 8 HOURS IVPB 02/03/19 14:00 02/08/19 21:59 02/04/19 05:37 Chlorhexidine Gluconate (Ruby-Hex 2%) 1 applic DAILY@2000 TOPIC 02/03/19 20:00 02/26/19 19:59 02/03/19 22:05 Dextrose (Dextrose 50%) 25 ml Q30M PRN IV Hypoglycemia 02/03/19 11:30 02/21/19 10:59 Dextrose (Dextrose 50%) 50 ml Q30M PRN IV hypoglycemia 02/03/19 11:30 02/21/19 10:59 Dextrose/Sodium Chloride 1,000 ml @ 75 mls/hr [id number] IV 02/03/19 11:30 03/03/19 18:39 02/03/19 23:21 Duloxetine HCl (Cymbalta) 30 mg DAILY ORAL 02/04/19 09:00 02/22/19 08:59 02/04/19 08:04 Fentanyl (Duragesic) 1 patch Q72H TDERMAL 02/03/19 12:00 02/10/19 11:59 02/03/19 12:35 Hydromorphone HCl (Dilaudid) 6 mg Q3H PRN IV BREAKTHROUGH PAIN 02/03/19 13:00 02/08/19 12:59 02/04/19 08:10 Levetiracetam (Keppra) 1,000 mg Q8HR NG 02/03/19 14:00 02/21/19 13:59 02/04/19 05:37 Lorazepam (Ativan 2mg/ml 1ml) 2 mg Q4H PRN IV For Anxiety 02/03/19 11:45 02/08/19 15:44 Miconazole Nitrate (Miconazole Nitrate) 1 applic Q12HR TOPIC 02/03/19 21:00 03/05/19 20:59 02/04/19 08:06 Miscellaneous Medication (fentaNYL Destruction) 1 ea Q72H MISC 02/06/19 12:00 03/08/19 11:59 Naloxone HCl (Narcan) 0.1 mg PRN IV Sedation scale 3 or 4 02/03/19 12:00 04/04/19 11:59 Ondansetron HCl (Zofran) 4 mg Q6H PRN IVP Nausea & Vomiting 02/03/19 12:00 03/03/19 11:59 Pantoprazole (Protonix) 40 mg DAILY IV 02/04/19 09:00 03/04/19 08:59 02/04/19 08:05 Vancomycin HCl (Vanco rx to dose) 1 ea DAILY PRN MISC Per rx protocol 02/03/19 12:00 03/05/19 11:59 Vancomycin HCl/ Dextrose 275 ml @ 183.333 mls/hr Q8H IVPB 02/03/19 17:00 02/08/19 16:59 02/04/19 08:05 Bill Dixon MD Feb 04, 2019 11:16
[2019-02-04 12:00] VITALS: BP 148/73
--- NOTE | 2019-02-04 13:35 | Surgery Progress Note ---
Surgery Progress Note Subjective Symptoms: improved, tolerating diet, passing flatus, pain decreased Objective Last 24 Hour Vital Signs Date Time Temp Pulse Resp B/P (MAP) Pulse Ox O2 Delivery O2 Flow Rate FiO2 02/04/19 12:00 98.4 81 16 148/73 (98) 98 02/04/19 09:26 Nasal Cannula 2.0 02/04/19 08:40 97.7 02/04/19 08:09 78 129/79 02/04/19 08:07 97.7 78 18 129/79 (96) 94 02/04/19 07:40 97 Nasal Cannula 3.0 32 02/04/19 04:00 77 02/04/19 04:00 97.8 79 18 120/63 (82) 94 02/04/19 00:00 97.8 82 18 141/63 (89) 97 02/04/19 00:00 77 02/03/19 21:00 Nasal Cannula 2.0 02/03/19 20:12 99 Nasal Cannula 3.0 32 02/03/19 20:00 97.8 80 18 129/68 (88) 96 02/03/19 20:00 78 02/03/19 16:00 97.9 90 20 146/78 (100) 97 02/03/19 16:00 77 02/03/19 14:00 85 I&O Intake and Output 02/03/19 02/04/19 19:00 07:00 Intake Total 1175.0 ml 700 ml Output Total 450 ml 2255 ml Balance 725.0 ml -1555 ml Intake Oral 600 ml 700 ml IV Total 575.0 ml Output Urine Total 450 ml 2000 ml Drainage Total 255 ml Dressing: saturated Wound: clean Drains: lisbet Respiratory: clear Abdomen: soft, non-tender, present bowel sounds, other Extremities: edema, no cyanosis, other Plan Problems: (1) Cellulitis of groin, left (2) Cellulitis Assessment & Plan: chronic cellulitis of pannus s/p panniculectomy now extubated and recovering pain controlled Doing well POD#3. Patient not to ambulate or lay flat as this would put too much tension on the incision. Ok to do PT in bed. dressings changed wound stable will monitor okay for diet -iv fluids -iv abx -drain care -keep lindsey in place -AM labs will follow with recs (3) COPD (chronic obstructive pulmonary disease) (4) Morbid obesity (5) Lumbar spondylosis (6) Right heart failure (7) ADALBERTO (obstructive sleep apnea) (8) Abdominal pannus (9) Neuropathy (10) Seizures (11) Cerebrovascular accident (12) Peripheral edema (13) Abdominal wall cellulitis (14) UTI (urinary tract infection) (15) Hyponatremia (16) Leg pain (17) Uncontrolled seizures (18) Muscle spasticity (19) Knee osteomyelits, right Gt Fernandez Feb 04, 2019 13:35
--- NOTE | 2019-02-04 15:30 | Progress Note ---
DATE: 02/04/2019 ADDENDUM Also he received 20 minutes of cognitive behavioral therapy to help him identify his automatic negative thoughts and help him convert those negative thoughts to more positive thoughts to reduce depression, anxiety, and mood lability. Chart reviewed. Discussed with staff. Seen and assessed at bedside. Laney Mcghee M.D. DR: GEENA JOB#: [id number] CC:
--- NOTE | 2019-02-04 16:11 | Cardiac Electrophysiology PN ---
Assessment/Plan Assessment/Plan 1. Hypertension. On amlodipine 5 daily . EF 60% 2. Severe bilateral lower extremity edema and cellulitis. On IV antibiotic per Dr. Patterson. 3. Abdominal pannus.S/P Resection of pannus 02/01/19 Tolerated surgery with no cardiac issues. 4. COPD and ADALBERTO. 5. S/P Resp failure, extubated 6. Right heart failure. 7. Lumbar spondylosis. 8. Morbid obesity. JESICA RN Subjective Subjective In SR on tele. No CP or SOB Objective Last 24 Hour Vital Signs Date Time Temp Pulse Resp B/P (MAP) Pulse Ox O2 Delivery O2 Flow Rate FiO2 02/04/19 14:55 98.4 02/04/19 12:00 80 02/04/19 12:00 98.4 81 16 148/73 (98) 98 02/04/19 11:42 98.4 02/04/19 09:26 Nasal Cannula 2.0 02/04/19 08:09 78 129/79 02/04/19 08:07 97.7 78 18 129/79 (96) 94 02/04/19 08:00 68 02/04/19 07:40 97 Nasal Cannula 3.0 32 02/04/19 04:00 77 02/04/19 04:00 97.8 79 18 120/63 (82) 94 02/04/19 00:00 97.8 82 18 141/63 (89) 97 02/04/19 00:00 77 02/03/19 21:00 Nasal Cannula 2.0 02/03/19 20:12 99 Nasal Cannula 3.0 32 02/03/19 20:00 97.8 80 18 129/68 (88) 96 02/03/19 20:00 78 Intake and Output 02/03/19 02/04/19 19:00 07:00 Intake Total 1175.0 ml 700 ml Output Total 450 ml 2255 ml Balance 725.0 ml -1555 ml Intake Oral 600 ml 700 ml IV Total 575.0 ml Output Urine Total 450 ml 2000 ml Drainage Total 255 ml Microbiology Date/Time Source Procedure Growth Status 02/02/19 14:30 Blood Blood Culture - Preliminary NO GROWTH AFTER 24 HOURS Resulted 02/02/19 14:20 Blood Blood Culture - Preliminary NO GROWTH AFTER 24 HOURS Resulted 02/01/19 17:00 Sputum Gram Stain - Final Complete 02/01/19 17:00 Sputum Sputum Culture - Final NORMAL UPPER RESPIRATORY EDITH PRESENT Complete Objective HEAD AND NECK: No JVD. LUNGS: Clear. CARDIOVASCULAR: Regular S1 and S2 with no gallop or murmur. ABDOMEN: Very swollen, erythematous, and enlarged scrotum. S/P abdominal surgery with drains EXTREMITIES: 2+ pitting edema and cellulitis of the legs. Carlos Yee MD Feb 04, 2019 16:10
[2019-02-04 16:40] VITALS: BP 126/73
--- NOTE | 2019-02-04 16:51 | NUR ---
NURSE NOTES: blood collected via picc line access @ 1400 as ordered. patient still refused to get out from his bed and unable to use bed scale.
--- NOTE | 2019-02-04 16:53 | Infectious Diseases Prog Note ---
Assessment/Plan Assessment/Plan Assessment: 02/01 SP Panniculectomy VDRF (post-op)- s/p extubation 02/02 Low grade fever x1 Mild leukocytosis- likely post op -02/01 CXR: Mild interstitial congestive changes persist, stable sp cx normal resp wesley (prelim) R groin swelling and pain- 2ry from Volume overload Sandy intertrigo; improving B/l Leg cellulitis and panniculitis - in the setting of chronic venous stasis, s /p Rx Active infectious cellulitis essentially resolved. Now he has chronic venous stasis and neuropathic pain with poorly healing wounds. Alot off this is due to the severe swelling in his feet but also he is poorly compliant with wound care instructions. Afebrile No leukocytosis Recent seizure episode -had L side weakness and spasticity CVA HTN bipolar disorder w/ psychotic features tobacco abuse anxiety disorder chronic pain CHF seizure disorder COPD morbid obesity Dm2 HTN SNF resident Plan: -Continue periop IV Vancomycin #4/5 -D/c empiric Aztreonam #4 -Cont Miconazole topical - Needs wound care for healing. -01/26 SP Fluconzole #5 - 01/07/19 SP IV Dapto d# 14 - 01/06/19 S/P Levofloxacin #7 - 12/25 sp Bactrim #/14 and add IV Ancef #3/ for cellulitis - Monitor CBC/CMP, temperatures - aspiration precautions - wound care per hospital protocol -plastic sx, Gen sx f/u -f/ucx Subjective Allergies: Coded Allergies: ASPIRIN (Verified Allergy, Unknown, 07/14/18) KETOROLAC (Verified Allergy, Unknown, 07/14/18) PENICILLINS (Verified Allergy, Unknown, 12/23/18) tolerated Ancef on 08/2018 Subjective afebrile >48hrs no cbc today Bcx NTD Objective Vital Signs Last 24 Hour Vital Signs Date Time Temp Pulse Resp B/P (MAP) Pulse Ox O2 Delivery O2 Flow Rate FiO2 02/04/19 16:40 98.7 75 18 126/73 (90) 95 02/04/19 14:55 98.4 02/04/19 12:00 80 02/04/19 12:00 98.4 81 16 148/73 (98) 98 02/04/19 11:42 98.4 02/04/19 09:26 Nasal Cannula 2.0 02/04/19 08:09 78 129/79 02/04/19 08:07 97.7 78 18 129/79 (96) 94 02/04/19 08:00 68 02/04/19 07:40 97 Nasal Cannula 3.0 32 02/04/19 04:00 77 02/04/19 04:00 97.8 79 18 120/63 (82) 94 02/04/19 00:00 97.8 82 18 141/63 (89) 97 02/04/19 00:00 77 02/03/19 21:00 Nasal Cannula 2.0 02/03/19 20:12 99 Nasal Cannula 3.0 32 02/03/19 20:00 97.8 80 18 129/68 (88) 96 02/03/19 20:00 78 Height (Feet): 6 Height (Inches): 0.00 Weight (Pounds): 418 Objective General Appearance: alert, moderate distress, obese Head: atraumatic Eyes: bilateral eye normal inspection ENT: normal ENT inspection, hearing grossly normal, normal voice Neck: normal inspection, full range of motion, supple, no bony tend Respiratory: normal inspection, lungs clear, normal breath sounds, no respiratory distress, no retraction, no wheezing Cardiovascular #1: regular rate, rhythm Gastrointestinal: normal inspection, normal bowel sounds, soft, no guarding, no hernia, other - Left lower abdominal area Genitourinary: other - Swollen groin edematous erythematous enlarged scrotum Musculoskeletal: normal inspection, back normal, normal range of motion Neurologic: normal inspection, alert, responsive, speech normal Psychiatric: depressed affect, anxious Skin: normal inspection, normal color, no rash Microbiology Date/Time Source Procedure Growth Status 02/02/19 14:30 Blood Blood Culture - Preliminary NO GROWTH AFTER 24 HOURS Resulted 02/02/19 14:20 Blood Blood Culture - Preliminary NO GROWTH AFTER 24 HOURS Resulted 02/01/19 17:00 Sputum Gram Stain - Final Complete 02/01/19 17:00 Sputum Sputum Culture - Final NORMAL UPPER RESPIRATORY WESLEY PRESENT Complete Laboratory Tests Test 02/04/19 16:00 Vancomycin Level Trough Pending Current Medications Medications (Trade) Dose Ordered Sig/Luis Route PRN Reason Start Time Stop Time Status Last Admin Dose Admin Acetaminophen (Tylenol) 650 mg Q4H PRN NG T>100.5 02/03/19 12:15 03/04/19 04:14 Amlodipine Besylate (Norvasc) 5 mg DAILY ORAL 02/04/19 09:00 02/22/19 08:59 02/04/19 08:09 Aztreonam 1 gm/ Sodium Chloride 50 ml @ 100 mls/hr EVERY 8 HOURS IVPB 02/03/19 14:00 02/08/19 21:59 02/04/19 12:49 Chlorhexidine Gluconate (Ruby-Hex 2%) 1 applic DAILY@2000 TOPIC 02/03/19 20:00 02/26/19 19:59 02/03/19 22:05 Dextrose (Dextrose 50%) 25 ml Q30M PRN IV Hypoglycemia 02/03/19 11:30 02/21/19 10:59 Dextrose (Dextrose 50%) 50 ml Q30M PRN IV hypoglycemia 02/03/19 11:30 02/21/19 10:59 Dextrose/Sodium Chloride 1,000 ml @ 75 mls/hr [id number] IV 02/03/19 11:30 03/03/19 18:39 02/03/19 23:21 Duloxetine HCl (Cymbalta) 30 mg DAILY ORAL 02/04/19 09:00 02/22/19 08:59 02/04/19 08:04 Fentanyl (Duragesic) 1 patch Q72H TDERMAL 02/03/19 12:00 02/10/19 11:59 02/03/19 12:35 Hydromorphone HCl (Dilaudid) 5 mg Q3H PRN IV BREAKTHROUGH PAIN 02/04/19 14:12 02/08/19 14:11 02/04/19 14:25 Levetiracetam (Keppra) 1,000 mg Q8HR NG 02/03/19 14:00 02/21/19 13:59 02/04/19 12:49 Lorazepam (Ativan 2mg/ml 1ml) 2 mg Q4H PRN IV For Anxiety 02/03/19 11:45 02/08/19 15:44 Miconazole Nitrate (Miconazole Nitrate) 1 applic Q12HR TOPIC 02/03/19 21:00 03/05/19 20:59 02/04/19 08:06 Miscellaneous Medication (fentaNYL Destruction) 1 ea Q72H MISC 02/06/19 12:00 03/08/19 11:59 Naloxone HCl (Narcan) 0.1 mg PRN IV Sedation scale 3 or 4 02/03/19 12:00 04/04/19 11:59 Ondansetron HCl (Zofran) 4 mg Q6H PRN IVP Nausea & Vomiting 02/03/19 12:00 03/03/19 11:59 Pantoprazole (Protonix) 40 mg DAILY IV 02/04/19 09:00 03/04/19 08:59 02/04/19 08:05 Vancomycin HCl (Vanco rx to dose) 1 ea DAILY PRN MISC Per rx protocol 02/03/19 12:00 03/05/19 11:59 Vancomycin HCl/ Dextrose 275 ml @ 183.333 mls/hr Q8H IVPB 02/03/19 17:00 02/08/19 16:59 02/04/19 08:05 Alexa Patterson M.D. Feb 04, 2019 16:53
[2019-02-04] MEDS ORDERED: D5 1/2NS 1000ml IV ONE (17:05)
--- NOTE | 2019-02-04 17:32 | NUR ---
collected 75 ML serosanguineous fluid from right lower ABD drain 10 ML serosanguineous fluid from left upper ABD drain 5 ML serosanguineous fluid from Right ABD drain
--- NOTE | 2019-02-04 19:25 | NUR ---
HAND-OFF: Report given to Kirby HINOJOSA.
--- NOTE | 2019-02-04 19:30 | NUR ---
NURSE NOTES: Received pt. from MICAELA Fofana. Pt. in bed awake on high fowlers position showing no signs of acute distress. Respiration even and non labored on 2L NC O2. No sob noted. VS stable, court monitor showing SR. Pt. is noted with MARQUEZ drains x3 (2 on right abd, and 1 on left abd.) draining serosanguineous and intact. ABD binder intact, no signs of bleeding noted. Pt. is noted on Pires cath, patent, intact and draining. PICC on left UA noted running D5 0.45 NS at 75ml/hr. Bed in lowest position, wheels locked and alarm on. Call light within reach. All needs attended and met. Will continue plan of care.
[2019-02-04 20:00] VITALS: BP 139/66
--- NOTE | 2019-02-04 20:30 | Progress Note ---
DATE: 02/04/2019 SUBJECTIVE: This is a 53-year-old male patient now in the telemetry unit, has some anxiety, depression, and mood lability. He was recently in ICU, but got transferred to telemetry. He has had some mood lability, anxiety, some altered mental status with . MENTAL STATUS EXAMINATION: This is a 53-year-old male. Appearance is disheveled. Attitude, irritable and agitated. Affect, restricted. Intellect poor. Mood, depressed and anxious. Motor activity, psychomotor agitation. Attention span is poor. Orientation x2. Speech is low volume, slurred. Thought process, disorganized and illogical. Insight and judgment is poor. DIAGNOSIS: Major depressive disorder, mild, recurrent with psychotic features. PLAN: Plan for this patient is to treat him with a medication regimen consisting of Cymbalta 30 mg a day. Provided him with 20 minutes of reality-based supportive psychotherapy. Chart reviewed. Discussed with staff. Seen and assessed at bedside. Laney Mcghee M.D. DR: GUTIERREZ JOB#: [id number] CC:
[2019-02-04] MEDS: Dyna-Hex 2% Top Sol 2oz TOPIC SCH (20:32)
[2019-02-04] MEDS: D5 1/2NS 1,000 ML IV SCH (21:02)
--- NOTE | 2019-02-04 22:59 | General Progress Note ---
Assessment/Plan Problem List: (1) Uncontrolled seizures ICD Codes: R56.9 - Unspecified convulsions SNOMED: 99497352 (2) Hyponatremia ICD Codes: E87.1 - Hypo-osmolality and hyponatremia SNOMED: 27348100 (3) Leg pain ICD Codes: M79.606 - Pain in leg, unspecified SNOMED: 97972156 (4) Cellulitis ICD Codes: L03.90 - Cellulitis, unspecified SNOMED: 684220365 (5) COPD (chronic obstructive pulmonary disease) ICD Codes: J44.9 - Chronic obstructive pulmonary disease, unspecified SNOMED: 15139011 (6) Lumbar spondylosis ICD Codes: M47.816 - Spondylosis without myelopathy or radiculopathy, lumbar region SNOMED: 382282089 (7) Right heart failure ICD Codes: I50.810 - Right heart failure, unspecified SNOMED: 865095637 (8) ADALBERTO (obstructive sleep apnea) ICD Codes: G47.33 - Obstructive sleep apnea (adult) (pediatric) SNOMED: 30118413 (9) Neuropathy ICD Codes: G62.9 - Polyneuropathy, unspecified SNOMED: 781453305 (10) Seizures ICD Codes: R56.9 - Unspecified convulsions SNOMED: 67146999 (11) Cerebrovascular accident ICD Codes: I63.9 - Cerebral infarction, unspecified SNOMED: 645369467 (12) Peripheral edema ICD Codes: R60.9 - Edema, unspecified SNOMED: 121247301 (13) UTI (urinary tract infection) ICD Codes: N39.0 - Urinary tract infection, site not specified SNOMED: 82443156 Status: stable, progressing Assessment/Plan: sepsis.improving neuropathy s/p cva no wheezing cva neuropathy chronic pain not hypoxic afebrile reviewed chart and labs and meds Subjective ROS Limited/Unobtainable: Yes Allergies: Coded Allergies: ASPIRIN (Verified Allergy, Unknown, 07/14/18) KETOROLAC (Verified Allergy, Unknown, 07/14/18) PENICILLINS (Verified Allergy, Unknown, 12/23/18) tolerated Ancef on 08/2018 Objective Last 24 Hour Vital Signs Date Time Temp Pulse Resp B/P (MAP) Pulse Ox O2 Delivery O2 Flow Rate FiO2 02/04/19 21:00 Nasal Cannula 2.0 02/04/19 20:00 98.4 82 20 139/66 (90) 99 02/04/19 20:00 77 02/04/19 17:57 98.7 02/04/19 16:40 98.7 75 18 126/73 (90) 95 02/04/19 16:00 79 02/04/19 12:00 80 02/04/19 12:00 98.4 81 16 148/73 (98) 98 02/04/19 11:42 98.4 02/04/19 09:26 Nasal Cannula 2.0 02/04/19 08:09 78 129/79 02/04/19 08:07 97.7 78 18 129/79 (96) 94 02/04/19 08:00 68 02/04/19 07:40 97 Nasal Cannula 3.0 32 02/04/19 04:00 77 02/04/19 04:00 97.8 79 18 120/63 (82) 94 02/04/19 00:00 97.8 82 18 141/63 (89) 97 02/04/19 00:00 77 Intake and Output 02/03/19 02/04/19 19:00 07:00 Intake Total 1175.0 ml 700 ml Output Total 450 ml 2255 ml Balance 725.0 ml -1555 ml Intake Oral 600 ml 700 ml IV Total 575.0 ml Output Urine Total 450 ml 2000 ml Drainage Total 255 ml Laboratory Tests 02/04/19 16:00: Vancomycin Level Trough 17.9H Height (Feet): 6 Height (Inches): 0.00 Weight (Pounds): 418 Cardiovascular: normal rate Respiratory/Chest: lungs clear Abdomen: soft Vadim Tang MD Feb 04, 2019 22:59
[2019-02-05] VITALS: BP 132/66
[2019-02-05] MEDS: VANCOMYCIN IVPB SCH ×3 (00:07→17:02)
[2019-02-05] MEDS: D5W IVPB SCH ×3 (00:07→17:02)
[2019-02-05 04:00] VITALS: BP 133/71
[2019-02-05 06:37] LABS: HEMATOCRIT 24.4 % (42.0-52.0); HEMOGLOBIN 7.8 G/DL (14.2-18.0); MEAN CORPUSCULAR VOLUME 94 FL (80-99); PLATELET COUNT 276 K/UL (150-450); RED BLOOD COUNT 2.61 M/UL (4.70-6.10); RED CELL DISTRIBUTION WIDTH 13.6 % (11.6-14.8); WHITE BLOOD COUNT 8.2 K/UL (4.8-10.8)
[2019-02-05] MEDS: levETIRAcetam 500mg/5ml Liquid NG SCH ×3 (06:41→21:30)
[2019-02-05 07:16] LABS: ALANINE AMINOTRANSFERASE 13 U/L (12-78); ALBUMIN 1.7 G/DL (3.4-5.0); ALBUMIN/GLOBULIN RATIO 0.4 (1.0-2.7); ALKALINE PHOSPHATASE 104 U/L (46-116); ANION GAP 0 mmol/L (5-15); ASPARTATE AMINO TRANSFERASE 34 U/L (15-37); BLOOD UREA NITROGEN 15 mg/dL (7-18); CALCIUM 8.6 MG/DL (8.5-10.1); CARBON DIOXIDE 38 MMOL/L (21-32); CHLORIDE 101 MMOL/L (98-107); CREATININE 0.9 MG/DL (0.55-1.30); PHOSPHORUS 4.3 MG/DL (2.5-4.9); POTASSIUM 3.8 MMOL/L (3.5-5.1); SODIUM 139 MMOL/L (136-145)
[2019-02-05 07:36] LABS: BILIRUBIN,TOTAL 0.4 MG/DL (0.2-1.0)
--- NOTE | 2019-02-05 07:54 | NUR ---
HAND-OFF: Report given to MICAELA Flood.
[2019-02-05 08:00] VITALS: BP 117/65
--- NOTE | 2019-02-05 08:25 | NUR ---
NURSE NOTES: Report received from MICAELA Corea. Observed patient in bed sleeping. Arousable by voice and verbally responsive. On 2L of oxygen via N/C with no distress noted. IV site intact and IVF running at prescribed rate. F/C intact and draining well. Bed in lowest position. Call light within reach. Will continue to monitor.
--- NOTE | 2019-02-05 09:01 | NUR ---
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
[2019-02-05] MEDS: Pantoprazole Inj IV SCH (09:18)
[2019-02-05] MEDS: DULoxetine 30mg cap ORAL SCH (09:18)
[2019-02-05] MEDS: Miconazole 2% Cream 30gm TOPIC SCH ×2 (09:20→21:09)
--- NOTE | 2019-02-05 09:30 | Progress Note ---
DATE: 02/05/2019 SUBJECTIVE: This is a 53-year-old male with cellulitis. He has altered mental status, confusion, decline in cognition below his baseline, but increased depression. That is why, his attending physician has requested daily psychiatric consultation. MENTAL STATUS EXAMINATION: This is a 53-year-old male. Appearance is disheveled. Attitude, irritable and agitated. Affect, guarded and restricted. Intellect poor. Mood, depressed and anxious. Motor activity, psychomotor agitation. Attention span is poor. Orientation x2. Speech is low volume, slurred. Thought process, disorganized and illogical. Insight and judgment is poor. DIAGNOSIS: Major depressive disorder, mild, recurrent, without psychotic features. PLAN: Treat him with Cymbalta 30 mg daily and Ativan as needed. Provide him with 20 minutes of cognitive behavioral therapy to help him identify his automatic negative thoughts and help him convert those negative thoughts to more positive thoughts to reduce depression, anxiety, and mood lability. Chart reviewed. Discussed with staff. Seen and assessed in his room. 20 minutes of cognitive behavioral therapy provided. Laney Mcghee M.D. DR: GEENA JOB#: [id number] CC:
--- NOTE | 2019-02-05 10:17 | NUR ---
DISCHARGE PLANNING PATIENT IS FROM [facility] BUT PATIENT HAD NO MEDICAL AND COULDN'T BE ACCEPTED. NOW THAT MEDICAL IS REINSTATED, FAXED REFERRAL TO [facility] SPOKE TO SADA IN ADMISSION HE STATED PATIENT IS OUT OF BED HOLD AND WILL TAKE PATIENT BACK WHEN BED BECOMES AVAILABLE. WILL CONTINUE FOLLOWING UP.
--- NOTE | 2019-02-05 11:52 | Pulmonology Progress Note ---
Assessment/Plan Problems: (1) Abdominal pannus (2) COPD (chronic obstructive pulmonary disease) (3) ADALBERTO (obstructive sleep apnea) (4) Right heart failure (5) Lumbar spondylosis (6) Morbid obesity Assessment/Plan pain better controlled needs to be on low calorie diet, pain is better controlled with Fentanyl patch labs in am symptomatic treatment dvt prophylaxis. Subjective ROS Limited/Unobtainable: No Constitutional: Reports: no symptoms HEENT: Repors: no symptoms Allergies: Coded Allergies: ASPIRIN (Verified Allergy, Unknown, 07/14/18) KETOROLAC (Verified Allergy, Unknown, 07/14/18) PENICILLINS (Verified Allergy, Unknown, 12/23/18) tolerated Ancef on 08/2018 Objective Last 24 Hour Vital Signs Date Time Temp Pulse Resp B/P (MAP) Pulse Ox O2 Delivery O2 Flow Rate FiO2 02/05/19 09:18 72 117/65 02/05/19 09:00 Nasal Cannula 2.0 02/05/19 08:00 98.2 72 20 117/65 (82) 97 02/05/19 08:00 71 02/05/19 07:12 98.0 02/05/19 04:00 98.0 80 20 133/71 (91) 98 02/05/19 04:00 74 02/05/19 00:00 98.0 76 19 132/66 (88) 94 02/05/19 00:00 76 02/04/19 21:00 Nasal Cannula 2.0 02/04/19 20:00 98.4 82 20 139/66 (90) 99 02/04/19 20:00 77 02/04/19 16:40 98.7 75 18 126/73 (90) 95 02/04/19 16:00 79 02/04/19 12:00 80 02/04/19 12:00 98.4 81 16 148/73 (98) 98 Intake and Output 02/04/19 02/05/19 19:00 07:00 Intake Total 400 ml 597.5 ml Output Total 895 ml 1000 ml Balance -495 ml -402.5 ml Intake Oral 400 ml IV Total 597.5 ml Output Urine Total 800 ml 1000 ml Drainage Total 95 ml Objective General Appearance: WD/WN HEENT: normocephalic Respiratory/Chest: chest wall non-tender,decreased breath sounds Cardiovascular: normal peripheral pulses, normal rate Abdomen: normal bowel sounds, soft, massive fat amount Genitourinary: swollen testicles, Extremities: extreme edema Microbiology Date/Time Source Procedure Growth Status 02/02/19 14:30 Blood Blood Culture - Preliminary NO GROWTH AFTER 48 HOURS Resulted 02/02/19 14:20 Blood Blood Culture - Preliminary NO GROWTH AFTER 48 HOURS Resulted Laboratory Tests 02/04/19 16:00: Vancomycin Level Trough 17.9H 02/05/19 05:25: White Blood Count 8.2, Red Blood Count 2.61L, Hemoglobin 7.8L, Hematocrit 24.4L , Mean Corpuscular Volume 94, Mean Corpuscular Hemoglobin 29.8, Mean Corpuscular Hemoglobin Concent 31.8L, Red Cell Distribution Width 13.6, Platelet Count 276, Mean Platelet Volume 4.3L, Neutrophils (%) (Auto) , Lymphocytes (%) (Auto) , Monocytes (%) (Auto) , Eosinophils (%) (Auto) , Basophils (%) (Auto) , Differential Total Cells Counted 100, Neutrophils % ( Manual) 57, Lymphocytes % (Manual) 27, Monocytes % (Manual) 10, Eosinophils % ( Manual) 6H, Basophils % (Manual) 0, Band Neutrophils 0, Platelet Estimate Adequate, Platelet Morphology Normal, Hypochromasia 1+, Erythrocyte Sedimentation Rate 120H, Sodium Level 139, Potassium Level 3.8, Chloride Level 101, Carbon Dioxide Level 38H, Anion Gap 0L, Blood Urea Nitrogen 15, Creatinine 0.9, Estimat Glomerular Filtration Rate > 60, Glucose Level 92, Calcium Level 8.6, Phosphorus Level 4.3, Magnesium Level 2.0, Total Bilirubin 0.4, Aspartate Amino Transf (AST/SGOT) 34, Alanine Aminotransferase (ALT/SGPT) 13, Alkaline Phosphatase 104, C-Reactive Protein, Quantitative 20.8H, Total Protein 6.0L, Albumin 1.7L, Globulin 4.3, Albumin/Globulin Ratio 0.4L Current Medications Medications (Trade) Dose Ordered Sig/Luis Route PRN Reason Start Time Stop Time Status Last Admin Dose Admin Acetaminophen (Tylenol) 650 mg Q4H PRN NG T>100.5 02/03/19 12:15 03/04/19 04:14 Amlodipine Besylate (Norvasc) 5 mg DAILY ORAL 02/04/19 09:00 02/22/19 08:59 02/05/19 09:18 Chlorhexidine Gluconate (Ruby-Hex 2%) 1 applic DAILY@2000 TOPIC 02/03/19 20:00 02/26/19 19:59 02/04/19 20:32 Dextrose (Dextrose 50%) 25 ml Q30M PRN IV Hypoglycemia 02/03/19 11:30 02/21/19 10:59 Dextrose (Dextrose 50%) 50 ml Q30M PRN IV hypoglycemia 02/03/19 11:30 02/21/19 10:59 Dextrose/Sodium Chloride 1,000 ml @ 75 mls/hr [id number] IV 02/03/19 11:30 03/03/19 18:39 02/04/19 21:02 Duloxetine HCl (Cymbalta) 30 mg DAILY ORAL 02/04/19 09:00 02/22/19 08:59 02/05/19 09:18 Fentanyl (Duragesic) 1 patch Q72H TDERMAL 02/03/19 12:00 02/10/19 11:59 02/03/19 12:35 Hydromorphone HCl (Dilaudid) 5 mg Q3H PRN IV BREAKTHROUGH PAIN 02/04/19 14:12 02/08/19 14:11 02/05/19 09:55 Levetiracetam (Keppra) 1,000 mg Q8HR NG 02/03/19 14:00 02/21/19 13:59 02/05/19 06:41 Lorazepam (Ativan 2mg/ml 1ml) 2 mg Q4H PRN IV For Anxiety 02/03/19 11:45 02/08/19 15:44 Methadone HCl (Methadone HCl) 10 mg Q6H PRN ORAL For Pain 02/05/19 11:45 02/12/19 11:44 UNV Miconazole Nitrate (Miconazole Nitrate) 1 applic Q12HR TOPIC 02/03/19 21:00 03/05/19 20:59 02/05/19 09:20 Miscellaneous Medication (fentaNYL Destruction) 1 ea Q72H MISC 02/06/19 12:00 03/08/19 11:59 Naloxone HCl (Narcan) 0.1 mg PRN IV Sedation scale 3 or 4 02/03/19 12:00 04/04/19 11:59 Ondansetron HCl (Zofran) 4 mg Q6H PRN IVP Nausea & Vomiting 02/03/19 12:00 03/03/19 11:59 Pantoprazole (Protonix) 40 mg DAILY IV 02/04/19 09:00 03/04/19 08:59 02/05/19 09:18 Vancomycin HCl (Vanco rx to dose) 1 ea DAILY PRN MISC Per rx protocol 02/03/19 12:00 03/05/19 11:59 Vancomycin HCl/ Dextrose 275 ml @ 183.333 mls/hr Q8H IVPB 02/03/19 17:00 02/08/19 16:59 02/05/19 09:19 Bill Dixon MD Feb 05, 2019 11:52
[2019-02-05 12:00] VITALS: BP 144/68
--- NOTE | 2019-02-05 13:21 | NUR ---
RD ASSESSMENT & RECOMMENDATIONS SEE CARE ACTIVITY FOR COMPLETE ASSESSMENT DAILY ESTIMATED NEEDS: Needs based on obesity, pulmonary, 107kg abw 15-20 kcals/kg 4414-0358 total kcals 1-1.5 g protein/kg 107-161 g total protein 15-25ml/kcal mL/kg 6993-0794 total fluid mLs NUTRITION DIAGNOSIS: Decreased sodium, fat, and calorie intake needs R/T cardiac h/o and morbid obesity as evidenced by h/o CHF, CVA, w/ BMI>50, @ 230% of [place] Body Weight CURRENT DIET:CLEAR LIQUID DIET PO DIET RECOMMENDATIONS: Advance diet per MD -> CARDIAC + CCHO LOW for calorie control ADDITIONAL RECOMMENDATIONS: * Calibrated bedscale wt for accurate CBW * Will add Ensure Clear TID while on clear liquid diet * Surgical wound healing: add MVI x 1, Vit C 250mg QD : Rory 1pkt BID added to tray * Diet education on wt loss upon f/up -> Pt now interested in wt loss, diet ed attempted on 02/05, but pt is too sleepy. Pt agreeable to no more sodas at this time.
--- NOTE | 2019-02-05 13:40 | Infectious Diseases Prog Note ---
Assessment/Plan Assessment/Plan Assessment: 02/01 SP Panniculectomy VDRF (post-op)- s/p extubation 02/02 Low grade fever x1 Mild leukocytosis- likely post op- resolved -02/01 CXR: Mild interstitial congestive changes persist, stable sp cx normal resp wesley (prelim) R groin swelling and pain- 2ry from Volume overload Sandy intertrigo; improving B/l Leg cellulitis and panniculitis - in the setting of chronic venous stasis, s /p Rx Active infectious cellulitis essentially resolved. Now he has chronic venous stasis and neuropathic pain with poorly healing wounds. Alot off this is due to the severe swelling in his feet but also he is poorly compliant with wound care instructions. Afebrile No leukocytosis Recent seizure episode -had L side weakness and spasticity CVA HTN bipolar disorder w/ psychotic features tobacco abuse anxiety disorder chronic pain CHF seizure disorder COPD morbid obesity Dm2 HTN SNF resident Plan: -Continue periop IV Vancomycin #5/ -Cont Miconazole topical - Needs wound care for healing. -02/04 SP Aztreonam #4 -01/26 SP Fluconzole #5 - 01/07/19 SP IV Dapto d# 14 - 01/06/19 S/P Levofloxacin #7 - 12/25 sp Bactrim #/ and add IV Ancef #3/ for cellulitis - Monitor CBC/CMP, temperatures - aspiration precautions - wound care per hospital protocol -plastic sx, Gen sx f/u -f/ucx Subjective Allergies: Coded Allergies: ASPIRIN (Verified Allergy, Unknown, 07/14/18) KETOROLAC (Verified Allergy, Unknown, 07/14/18) PENICILLINS (Verified Allergy, Unknown, 12/23/18) tolerated Ancef on 08/2018 Subjective afebrile >72hrs leukocytosis resolved Bcx NTD Objective Vital Signs Last 24 Hour Vital Signs Date Time Temp Pulse Resp B/P (MAP) Pulse Ox O2 Delivery O2 Flow Rate FiO2 02/05/19 12:00 70 02/05/19 12:00 97.9 79 18 144/68 (93) 95 02/05/19 09:18 72 117/65 02/05/19 09:00 Nasal Cannula 2.0 02/05/19 08:00 98.2 72 20 117/65 (82) 97 02/05/19 08:00 71 02/05/19 07:12 98.0 02/05/19 04:00 98.0 80 20 133/71 (91) 98 02/05/19 04:00 74 02/05/19 00:00 98.0 76 19 132/66 (88) 94 02/05/19 00:00 76 02/04/19 21:00 Nasal Cannula 2.0 02/04/19 20:00 98.4 82 20 139/66 (90) 99 02/04/19 20:00 77 02/04/19 16:40 98.7 75 18 126/73 (90) 95 02/04/19 16:00 79 Height (Feet): 6 Height (Inches): 0.00 Weight (Pounds): 418 Objective General Appearance: alert, moderate distress, obese Head: atraumatic Eyes: bilateral eye normal inspection ENT: normal ENT inspection, hearing grossly normal, normal voice Neck: normal inspection, full range of motion, supple, no bony tend Respiratory: normal inspection, lungs clear, normal breath sounds, no respiratory distress, no retraction, no wheezing Cardiovascular #1: regular rate, rhythm Gastrointestinal: normal inspection, normal bowel sounds, soft, no guarding, no hernia, other - Left lower abdominal area Genitourinary: other - Swollen groin edematous erythematous enlarged scrotum Musculoskeletal: normal inspection, back normal, normal range of motion Neurologic: normal inspection, alert, responsive, speech normal Psychiatric: depressed affect, anxious Skin: normal inspection, normal color, no rash Microbiology Date/Time Source Procedure Growth Status 02/02/19 14:30 Blood Blood Culture - Preliminary NO GROWTH AFTER 48 HOURS Resulted 02/02/19 14:20 Blood Blood Culture - Preliminary NO GROWTH AFTER 48 HOURS Resulted Laboratory Tests Test 02/04/19 16:00 02/05/19 05:25 Vancomycin Level Trough 17.9 ug/mL (5.0-12.0) H White Blood Count 8.2 K/UL (4.8-10.8) Red Blood Count 2.61 M/UL (4.70-6.10) L Hemoglobin 7.8 G/DL (14.2-18.0) L Hematocrit 24.4 % (42.0-52.0) L Mean Corpuscular Volume 94 FL (80-99) Mean Corpuscular Hemoglobin 29.8 PG (27.0-31.0) Mean Corpuscular Hemoglobin Concent 31.8 G/DL (32.0-36.0) L Red Cell Distribution Width 13.6 % (11.6-14.8) Platelet Count 276 K/UL (150-450) Mean Platelet Volume 4.3 FL (6.5-10.1) L Neutrophils (%) (Auto) % (45.0-75.0) Lymphocytes (%) (Auto) % (20.0-45.0) Monocytes (%) (Auto) % (1.0-10.0) Eosinophils (%) (Auto) % (0.0-3.0) Basophils (%) (Auto) % (0.0-2.0) Differential Total Cells Counted 100 Neutrophils % (Manual) 57 % (45-75) Lymphocytes % (Manual) 27 % (20-45) Monocytes % (Manual) 10 % (1-10) Eosinophils % (Manual) 6 % (0-3) H Basophils % (Manual) 0 % (0-2) Band Neutrophils 0 % (0-8) Platelet Estimate Adequate Platelet Morphology Normal Hypochromasia 1+ Erythrocyte Sedimentation Rate 120 MM/HR (0-20) H Sodium Level 139 MMOL/L (136-145) Potassium Level 3.8 MMOL/L (3.5-5.1) Chloride Level 101 MMOL/L (98-107) Carbon Dioxide Level 38 MMOL/L (21-32) H Anion Gap 0 mmol/L (5-15) L Blood Urea Nitrogen 15 mg/dL (7-18) Creatinine 0.9 MG/DL (0.55-1.30) Estimat Glomerular Filtration Rate > 60 mL/min (>60) Glucose Level 92 MG/DL (74-106) Calcium Level 8.6 MG/DL (8.5-10.1) Phosphorus Level 4.3 MG/DL (2.5-4.9) Magnesium Level 2.0 MG/DL (1.8-2.4) Total Bilirubin 0.4 MG/DL (0.2-1.0) Aspartate Amino Transf (AST/SGOT) 34 U/L (15-37) Alanine Aminotransferase (ALT/SGPT) 13 U/L (12-78) Alkaline Phosphatase 104 U/L (46-116) C-Reactive Protein, Quantitative 20.8 mg/dL (0.00-0.90) H Total Protein 6.0 G/DL (6.4-8.2) L Albumin 1.7 G/DL (3.4-5.0) L Globulin 4.3 g/dL Albumin/Globulin Ratio 0.4 (1.0-2.7) L Current Medications Medications (Trade) Dose Ordered Sig/Luis Route PRN Reason Start Time Stop Time Status Last Admin Dose Admin Acetaminophen (Tylenol) 650 mg Q4H PRN NG T>100.5 02/03/19 12:15 03/04/19 04:14 Amlodipine Besylate (Norvasc) 5 mg DAILY ORAL 02/04/19 09:00 02/22/19 08:59 02/05/19 09:18 Chlorhexidine Gluconate (Ruby-Hex 2%) 1 applic DAILY@2000 TOPIC 02/03/19 20:00 02/26/19 19:59 02/04/19 20:32 Dextrose (Dextrose 50%) 25 ml Q30M PRN IV Hypoglycemia 02/03/19 11:30 02/21/19 10:59 Dextrose (Dextrose 50%) 50 ml Q30M PRN IV hypoglycemia 02/03/19 11:30 02/21/19 10:59 Dextrose/Sodium Chloride 1,000 ml @ 75 mls/hr [id number] IV 02/03/19 11:30 03/03/19 18:39 02/04/19 21:02 Duloxetine HCl (Cymbalta) 30 mg DAILY ORAL 02/04/19 09:00 02/22/19 08:59 02/05/19 09:18 Fentanyl (Duragesic) 1 patch Q72H TDERMAL 02/03/19 12:00 02/10/19 11:59 02/03/19 12:35 Hydromorphone HCl (Dilaudid) 5 mg Q3H PRN IV BREAKTHROUGH PAIN 02/04/19 14:12 02/08/19 14:11 02/05/19 12:51 Levetiracetam (Keppra) 1,000 mg Q8HR NG 02/03/19 14:00 02/21/19 13:59 02/05/19 13:09 Lorazepam (Ativan 2mg/ml 1ml) 2 mg Q4H PRN IV For Anxiety 02/03/19 11:45 02/08/19 15:44 Methadone HCl (Methadone HCl) 10 mg Q6H PRN ORAL For Pain 02/05/19 11:45 02/12/19 11:44 02/05/19 12:05 Miconazole Nitrate (Miconazole Nitrate) 1 applic Q12HR TOPIC 02/03/19 21:00 03/05/19 20:59 02/05/19 09:20 Miscellaneous Medication (fentaNYL Destruction) 1 ea Q72H MISC 02/06/19 12:00 03/08/19 11:59 Naloxone HCl (Narcan) 0.1 mg PRN IV Sedation scale 3 or 4 02/03/19 12:00 04/04/19 11:59 Ondansetron HCl (Zofran) 4 mg Q6H PRN IVP Nausea & Vomiting 02/03/19 12:00 03/03/19 11:59 Pantoprazole (Protonix) 40 mg DAILY IV 02/04/19 09:00 03/04/19 08:59 02/05/19 09:18 Vancomycin HCl (Vanco rx to dose) 1 ea DAILY PRN MISC Per rx protocol 02/03/19 12:00 03/05/19 11:59 Vancomycin HCl/ Dextrose 275 ml @ 183.333 mls/hr Q8H IVPB 02/03/19 17:00 02/08/19 16:59 02/05/19 09:19 Alexa Patterson M.D. Feb 05, 2019 13:40
--- NOTE | 2019-02-05 13:43 | Surgery Progress Note ---
Surgery Progress Note Subjective Additional Comments leukocytosis improved dressings stable drains serosang doing well. Objective Last 24 Hour Vital Signs Date Time Temp Pulse Resp B/P (MAP) Pulse Ox O2 Delivery O2 Flow Rate FiO2 02/05/19 12:00 70 02/05/19 12:00 97.9 79 18 144/68 (93) 95 02/05/19 09:18 72 117/65 02/05/19 09:00 Nasal Cannula 2.0 02/05/19 08:00 98.2 72 20 117/65 (82) 97 02/05/19 08:00 71 02/05/19 07:12 98.0 02/05/19 04:00 98.0 80 20 133/71 (91) 98 02/05/19 04:00 74 02/05/19 00:00 98.0 76 19 132/66 (88) 94 02/05/19 00:00 76 02/04/19 21:00 Nasal Cannula 2.0 02/04/19 20:00 98.4 82 20 139/66 (90) 99 02/04/19 20:00 77 02/04/19 16:40 98.7 75 18 126/73 (90) 95 02/04/19 16:00 79 I&O Intake and Output 02/04/19 02/05/19 19:00 07:00 Intake Total 400 ml 597.5 ml Output Total 895 ml 1000 ml Balance -495 ml -402.5 ml Intake Oral 400 ml IV Total 597.5 ml Output Urine Total 800 ml 1000 ml Drainage Total 95 ml Dressing: saturated Wound: clean Drains: lisbet Cardiovascular: RSR Respiratory: clear Abdomen: soft, non-tender, present bowel sounds Extremities: edema, no cyanosis Laboratory Tests Test 02/04/19 16:00 02/05/19 05:25 Vancomycin Level Trough 17.9 ug/mL (5.0-12.0) H White Blood Count 8.2 K/UL (4.8-10.8) Red Blood Count 2.61 M/UL (4.70-6.10) L Hemoglobin 7.8 G/DL (14.2-18.0) L Hematocrit 24.4 % (42.0-52.0) L Mean Corpuscular Volume 94 FL (80-99) Mean Corpuscular Hemoglobin 29.8 PG (27.0-31.0) Mean Corpuscular Hemoglobin Concent 31.8 G/DL (32.0-36.0) L Red Cell Distribution Width 13.6 % (11.6-14.8) Platelet Count 276 K/UL (150-450) Mean Platelet Volume 4.3 FL (6.5-10.1) L Neutrophils (%) (Auto) % (45.0-75.0) Lymphocytes (%) (Auto) % (20.0-45.0) Monocytes (%) (Auto) % (1.0-10.0) Eosinophils (%) (Auto) % (0.0-3.0) Basophils (%) (Auto) % (0.0-2.0) Differential Total Cells Counted 100 Neutrophils % (Manual) 57 % (45-75) Lymphocytes % (Manual) 27 % (20-45) Monocytes % (Manual) 10 % (1-10) Eosinophils % (Manual) 6 % (0-3) H Basophils % (Manual) 0 % (0-2) Band Neutrophils 0 % (0-8) Platelet Estimate Adequate Platelet Morphology Normal Hypochromasia 1+ Erythrocyte Sedimentation Rate 120 MM/HR (0-20) H Sodium Level 139 MMOL/L (136-145) Potassium Level 3.8 MMOL/L (3.5-5.1) Chloride Level 101 MMOL/L (98-107) Carbon Dioxide Level 38 MMOL/L (21-32) H Anion Gap 0 mmol/L (5-15) L Blood Urea Nitrogen 15 mg/dL (7-18) Creatinine 0.9 MG/DL (0.55-1.30) Estimat Glomerular Filtration Rate > 60 mL/min (>60) Glucose Level 92 MG/DL (74-106) Calcium Level 8.6 MG/DL (8.5-10.1) Phosphorus Level 4.3 MG/DL (2.5-4.9) Magnesium Level 2.0 MG/DL (1.8-2.4) Total Bilirubin 0.4 MG/DL (0.2-1.0) Aspartate Amino Transf (AST/SGOT) 34 U/L (15-37) Alanine Aminotransferase (ALT/SGPT) 13 U/L (12-78) Alkaline Phosphatase 104 U/L (46-116) C-Reactive Protein, Quantitative 20.8 mg/dL (0.00-0.90) H Total Protein 6.0 G/DL (6.4-8.2) L Albumin 1.7 G/DL (3.4-5.0) L Globulin 4.3 g/dL Albumin/Globulin Ratio 0.4 (1.0-2.7) L Plan Problems: (1) Cellulitis of groin, left (2) Cellulitis Assessment & Plan: chronic cellulitis of pannus s/p panniculectomy now extubated and recovering pain controlled Doing well POD#3. Patient not to ambulate or lay flat as this would put too much tension on the incision. Ok to do PT in bed. dressings changed wound stable will monitor okay for diet -iv fluids -iv abx -drain care -keep lindsey in place -AM labs will follow with recs (3) COPD (chronic obstructive pulmonary disease) (4) Morbid obesity (5) Lumbar spondylosis (6) Right heart failure (7) ADALBERTO (obstructive sleep apnea) (8) Abdominal pannus (9) Neuropathy (10) Seizures (11) Cerebrovascular accident (12) Peripheral edema (13) Abdominal wall cellulitis (14) UTI (urinary tract infection) (15) Hyponatremia (16) Leg pain (17) Uncontrolled seizures (18) Muscle spasticity (19) Knee osteomyelits, right Gt Fernandez Feb 05, 2019 13:43
--- NOTE | 2019-02-05 13:55 | NUR ---
NURSE NOTES: I received the patient resting in bed. Reported was received from MICAELA Flood. Patient resting comfortably and does not have any complaints of pain. Patient alert and oriented x4. Bed in the lowest position and call light within reach. Patient's lindsey draining well to gravity. Patient has three MARQUEZ drains with minimal drainage. Patient's PICC line flushing well. I will continue to monitor the patient and implement care.
--- NOTE | 2019-02-05 13:58 | NUR ---
HAND-OFF: Report given to MICAELA Pretty. Stable condition.
[2019-02-05 16:00] VITALS: BP 134/62
[2019-02-05] MEDS: D5 1/2NS 1,000 ML IV SCH (16:44)
--- NOTE | 2019-02-05 17:31 | Cardiac Electrophysiology PN ---
Assessment/Plan Assessment/Plan 1. Hypertension. On amlodipine 5 daily . EF 60% 2. Severe bilateral lower extremity edema and cellulitis. On IV Vancomycin per Dr. Patterson. 3. Abdominal pannus.S/P Resection of pannus 02/01/19 Tolerated surgery with no cardiac issues. 4. COPD and ADALBERTO. 5. S/P Resp failure, extubated 6. Right heart failure. 7. Lumbar spondylosis. 8. Morbid obesity. JESICA RN Subjective Subjective In SR on tele. No CP or SOB. Still has 3 abdominal drains Objective Last 24 Hour Vital Signs Date Time Temp Pulse Resp B/P (MAP) Pulse Ox O2 Delivery O2 Flow Rate FiO2 02/05/19 16:30 97.9 02/05/19 16:00 98.2 67 18 134/62 (86) 95 02/05/19 16:00 78 02/05/19 12:00 70 02/05/19 12:00 97.9 79 18 144/68 (93) 95 02/05/19 09:18 72 117/65 02/05/19 09:00 Nasal Cannula 2.0 02/05/19 08:00 98.2 72 20 117/65 (82) 97 02/05/19 08:00 71 02/05/19 07:00 98 Nasal Cannula 3.0 32 02/05/19 04:00 98.0 80 20 133/71 (91) 98 02/05/19 04:00 74 02/05/19 00:00 98.0 76 19 132/66 (88) 94 02/05/19 00:00 76 02/04/19 21:00 Nasal Cannula 2.0 02/04/19 20:00 98.4 82 20 139/66 (90) 99 02/04/19 20:00 77 Intake and Output 02/04/19 02/05/19 19:00 07:00 Intake Total 400 ml 597.5 ml Output Total 895 ml 1000 ml Balance -495 ml -402.5 ml Intake Oral 400 ml IV Total 597.5 ml Output Urine Total 800 ml 1000 ml Drainage Total 95 ml Laboratory Tests Test 02/05/19 05:25 White Blood Count 8.2 K/UL (4.8-10.8) Red Blood Count 2.61 M/UL (4.70-6.10) L Hemoglobin 7.8 G/DL (14.2-18.0) L Hematocrit 24.4 % (42.0-52.0) L Mean Corpuscular Volume 94 FL (80-99) Mean Corpuscular Hemoglobin 29.8 PG (27.0-31.0) Mean Corpuscular Hemoglobin Concent 31.8 G/DL (32.0-36.0) L Red Cell Distribution Width 13.6 % (11.6-14.8) Platelet Count 276 K/UL (150-450) Mean Platelet Volume 4.3 FL (6.5-10.1) L Neutrophils (%) (Auto) % (45.0-75.0) Lymphocytes (%) (Auto) % (20.0-45.0) Monocytes (%) (Auto) % (1.0-10.0) Eosinophils (%) (Auto) % (0.0-3.0) Basophils (%) (Auto) % (0.0-2.0) Differential Total Cells Counted 100 Neutrophils % (Manual) 57 % (45-75) Lymphocytes % (Manual) 27 % (20-45) Monocytes % (Manual) 10 % (1-10) Eosinophils % (Manual) 6 % (0-3) H Basophils % (Manual) 0 % (0-2) Band Neutrophils 0 % (0-8) Platelet Estimate Adequate Platelet Morphology Normal Hypochromasia 1+ Erythrocyte Sedimentation Rate 120 MM/HR (0-20) H Sodium Level 139 MMOL/L (136-145) Potassium Level 3.8 MMOL/L (3.5-5.1) Chloride Level 101 MMOL/L (98-107) Carbon Dioxide Level 38 MMOL/L (21-32) H Anion Gap 0 mmol/L (5-15) L Blood Urea Nitrogen 15 mg/dL (7-18) Creatinine 0.9 MG/DL (0.55-1.30) Estimat Glomerular Filtration Rate > 60 mL/min (>60) Glucose Level 92 MG/DL (74-106) Calcium Level 8.6 MG/DL (8.5-10.1) Phosphorus Level 4.3 MG/DL (2.5-4.9) Magnesium Level 2.0 MG/DL (1.8-2.4) Total Bilirubin 0.4 MG/DL (0.2-1.0) Aspartate Amino Transf (AST/SGOT) 34 U/L (15-37) Alanine Aminotransferase (ALT/SGPT) 13 U/L (12-78) Alkaline Phosphatase 104 U/L (46-116) C-Reactive Protein, Quantitative 20.8 mg/dL (0.00-0.90) H Total Protein 6.0 G/DL (6.4-8.2) L Albumin 1.7 G/DL (3.4-5.0) L Globulin 4.3 g/dL Albumin/Globulin Ratio 0.4 (1.0-2.7) L Objective HEAD AND NECK: No JVD. LUNGS: Clear. CARDIOVASCULAR: Regular S1 and S2 with no gallop or murmur. ABDOMEN: Very swollen, erythematous, and enlarged scrotum. S/P abdominal surgery with drains EXTREMITIES: 2+ pitting edema and cellulitis of the legs. Carlos Yee MD Feb 05, 2019 17:31
--- NOTE | 2019-02-05 19:15 | NUR ---
HAND-OFF: Report given to Sharyn Nicholson RN.
--- NOTE | 2019-02-05 19:16 | NUR ---
NURSE NOTES: Got report from Maria De Jesus HINOJOSA. Pt in stable condition. Denies any pain. No s/s of distress or discomfort noted. Pt resting in bed comfortably. Bed in low an locked position, call light within reach, bedside table within reach. Continue to monitor.
[2019-02-05 20:00] VITALS: BP 124/76
[2019-02-05] MEDS: Dyna-Hex 2% Top Sol 2oz TOPIC SCH (20:00)
--- NOTE | 2019-02-05 21:33 | General Progress Note ---
Assessment/Plan Problem List: (1) Uncontrolled seizures ICD Codes: R56.9 - Unspecified convulsions SNOMED: 07543220 (2) Hyponatremia ICD Codes: E87.1 - Hypo-osmolality and hyponatremia SNOMED: 61776017 (3) Leg pain ICD Codes: M79.606 - Pain in leg, unspecified SNOMED: 85660662 (4) Cellulitis ICD Codes: L03.90 - Cellulitis, unspecified SNOMED: 730261155 (5) COPD (chronic obstructive pulmonary disease) ICD Codes: J44.9 - Chronic obstructive pulmonary disease, unspecified SNOMED: 29000402 (6) Lumbar spondylosis ICD Codes: M47.816 - Spondylosis without myelopathy or radiculopathy, lumbar region SNOMED: 405673088 (7) Right heart failure ICD Codes: I50.810 - Right heart failure, unspecified SNOMED: 148475460 (8) ADALBERTO (obstructive sleep apnea) ICD Codes: G47.33 - Obstructive sleep apnea (adult) (pediatric) SNOMED: 44226971 (9) Neuropathy ICD Codes: G62.9 - Polyneuropathy, unspecified SNOMED: 413055298 (10) Seizures ICD Codes: R56.9 - Unspecified convulsions SNOMED: 41748774 (11) Cerebrovascular accident ICD Codes: I63.9 - Cerebral infarction, unspecified SNOMED: 973417743 (12) Peripheral edema ICD Codes: R60.9 - Edema, unspecified SNOMED: 163806080 (13) UTI (urinary tract infection) ICD Codes: N39.0 - Urinary tract infection, site not specified SNOMED: 16189433 Status: stable, progressing Assessment/Plan: sepsis.improving s/p cva reviewed chart and labs and meds djd no sob no cp Subjective ROS Limited/Unobtainable: Yes Allergies: Coded Allergies: ASPIRIN (Verified Allergy, Unknown, 07/14/18) KETOROLAC (Verified Allergy, Unknown, 07/14/18) PENICILLINS (Verified Allergy, Unknown, 12/23/18) tolerated Ancef on 08/2018 Objective Last 24 Hour Vital Signs Date Time Temp Pulse Resp B/P (MAP) Pulse Ox O2 Delivery O2 Flow Rate FiO2 02/05/19 20:49 97 Nasal Cannula 3.0 32 02/05/19 20:00 98.0 74 19 124/76 (92) 96 02/05/19 19:33 97.9 02/05/19 16:00 98.2 67 18 134/62 (86) 95 02/05/19 16:00 78 02/05/19 12:00 70 02/05/19 12:00 97.9 79 18 144/68 (93) 95 02/05/19 09:18 72 117/65 02/05/19 09:00 Nasal Cannula 2.0 02/05/19 08:00 98.2 72 20 117/65 (82) 97 02/05/19 08:00 71 02/05/19 07:00 98 Nasal Cannula 3.0 32 02/05/19 04:00 98.0 80 20 133/71 (91) 98 02/05/19 04:00 74 02/05/19 00:00 98.0 76 19 132/66 (88) 94 02/05/19 00:00 76 Intake and Output 02/04/19 02/05/19 19:00 07:00 Intake Total 400 ml 597.5 ml Output Total 895 ml 1000 ml Balance -495 ml -402.5 ml Intake Oral 400 ml IV Total 597.5 ml Output Urine Total 800 ml 1000 ml Drainage Total 95 ml Laboratory Tests 02/05/19 05:25: White Blood Count 8.2, Red Blood Count 2.61L, Hemoglobin 7.8L, Hematocrit 24.4L , Mean Corpuscular Volume 94, Mean Corpuscular Hemoglobin 29.8, Mean Corpuscular Hemoglobin Concent 31.8L, Red Cell Distribution Width 13.6, Platelet Count 276, Mean Platelet Volume 4.3L, Neutrophils (%) (Auto) , Lymphocytes (%) (Auto) , Monocytes (%) (Auto) , Eosinophils (%) (Auto) , Basophils (%) (Auto) , Differential Total Cells Counted 100, Neutrophils % ( Manual) 57, Lymphocytes % (Manual) 27, Monocytes % (Manual) 10, Eosinophils % ( Manual) 6H, Basophils % (Manual) 0, Band Neutrophils 0, Platelet Estimate Adequate, Platelet Morphology Normal, Hypochromasia 1+, Erythrocyte Sedimentation Rate 120H, Sodium Level 139, Potassium Level 3.8, Chloride Level 101, Carbon Dioxide Level 38H, Anion Gap 0L, Blood Urea Nitrogen 15, Creatinine 0.9, Estimat Glomerular Filtration Rate > 60, Glucose Level 92, Calcium Level 8.6, Phosphorus Level 4.3, Magnesium Level 2.0, Total Bilirubin 0.4, Aspartate Amino Transf (AST/SGOT) 34, Alanine Aminotransferase (ALT/SGPT) 13, Alkaline Phosphatase 104, C-Reactive Protein, Quantitative 20.8H, Total Protein 6.0L, Albumin 1.7L, Globulin 4.3, Albumin/Globulin Ratio 0.4L Height (Feet): 6 Height (Inches): 0.00 Weight (Pounds): 418 Neck: supple Cardiovascular: normal rate Respiratory/Chest: lungs clear Abdomen: soft Vadim Tang MD Feb 05, 2019 21:33
[2019-02-06] MEDS: VANCOMYCIN IVPB SCH ×2 (00:59→09:26)
[2019-02-06] MEDS: D5W IVPB SCH ×2 (00:59→09:26)
[2019-02-06 03:52] VITALS: BP 114/68
[2019-02-06] MEDS: levETIRAcetam 500mg/5ml Liquid NG SCH (06:00)
[2019-02-06] MEDS: D5 1/2NS 1,000 ML IV SCH (06:00)
--- NOTE | 2019-02-06 07:04 | Pulmonology Progress Note ---
Assessment/Plan Problems: (1) Abdominal pannus (2) COPD (chronic obstructive pulmonary disease) (3) ADALBERTO (obstructive sleep apnea) (4) Right heart failure (5) Lumbar spondylosis (6) Morbid obesity Assessment/Plan no fever or leukocytosis pain better controlled needs to be on low calorie diet, pain is better controlled with Fentanyl patch labs in am symptomatic treatment dvt prophylaxis. Subjective ROS Limited/Unobtainable: No Constitutional: Reports: no symptoms HEENT: Repors: no symptoms Allergies: Coded Allergies: ASPIRIN (Verified Allergy, Unknown, 07/14/18) KETOROLAC (Verified Allergy, Unknown, 07/14/18) PENICILLINS (Verified Allergy, Unknown, 12/23/18) tolerated Ancef on 08/2018 Objective Last 24 Hour Vital Signs Date Time Temp Pulse Resp B/P (MAP) Pulse Ox O2 Delivery O2 Flow Rate FiO2 02/06/19 04:29 97.6 02/06/19 04:20 74 02/06/19 03:52 97.6 71 20 114/68 (83) 97 02/06/19 00:07 75 02/05/19 21:00 Nasal Cannula 2.0 02/05/19 20:49 97 Nasal Cannula 3.0 32 02/05/19 20:00 98.0 74 19 124/76 (92) 96 02/05/19 20:00 69 02/05/19 16:00 98.2 67 18 134/62 (86) 95 02/05/19 16:00 78 02/05/19 12:00 70 02/05/19 12:00 97.9 79 18 144/68 (93) 95 02/05/19 09:18 72 117/65 02/05/19 09:00 Nasal Cannula 2.0 02/05/19 08:00 98.2 72 20 117/65 (82) 97 02/05/19 08:00 71 Intake and Output 02/05/19 02/06/19 19:00 07:00 Intake Total 698.333 ml Output Total 2210 ml 400 ml Balance -1511.667 ml -400 ml Intake Oral 240 ml IV Total 458.333 ml Output Urine Total 1900 ml 400 ml Drainage Total 310 ml Objective General Appearance: WD/WN HEENT: normocephalic Respiratory/Chest: chest wall non-tender,decreased breath sounds Cardiovascular: normal peripheral pulses, normal rate Abdomen: normal bowel sounds, soft, massive fat amount Genitourinary: swollen testicles, Extremities: extreme edema Current Medications Medications (Trade) Dose Ordered Sig/Luis Route PRN Reason Start Time Stop Time Status Last Admin Dose Admin Acetaminophen (Tylenol) 650 mg Q4H PRN NG T>100.5 02/03/19 12:15 03/04/19 04:14 Amlodipine Besylate (Norvasc) 5 mg DAILY ORAL 02/04/19 09:00 02/22/19 08:59 02/05/19 09:18 Chlorhexidine Gluconate (Ruby-Hex 2%) 1 applic DAILY@2000 TOPIC 02/03/19 20:00 02/26/19 19:59 02/05/19 20:00 Dextrose (Dextrose 50%) 25 ml Q30M PRN IV Hypoglycemia 02/03/19 11:30 02/21/19 10:59 Dextrose (Dextrose 50%) 50 ml Q30M PRN IV hypoglycemia 02/03/19 11:30 02/21/19 10:59 Duloxetine HCl (Cymbalta) 30 mg DAILY ORAL 02/04/19 09:00 02/22/19 08:59 02/05/19 09:18 Fentanyl (Duragesic) 1 patch Q72H TDERMAL 02/03/19 12:00 02/10/19 11:59 02/03/19 12:35 Hydromorphone HCl (Dilaudid) 4 mg Q3H PRN IV BREAKTHROUGH PAIN 02/06/19 08:12 02/08/19 14:11 UNV Levetiracetam (Keppra) 1,000 mg Q8HR NG 02/03/19 14:00 02/21/19 13:59 02/06/19 06:00 Lorazepam (Ativan 2mg/ml 1ml) 2 mg Q4H PRN IV For Anxiety 02/03/19 11:45 02/08/19 15:44 Methadone HCl (Methadone HCl) 10 mg Q6H PRN ORAL For Pain 02/05/19 11:45 02/12/19 11:44 02/05/19 12:05 Miconazole Nitrate (Miconazole Nitrate) 1 applic Q12HR TOPIC 02/03/19 21:00 03/05/19 20:59 02/05/19 21:09 Miscellaneous Medication (fentaNYL Destruction) 1 ea Q72H MISC 02/06/19 12:00 03/08/19 11:59 Naloxone HCl (Narcan) 0.1 mg PRN IV Sedation scale 3 or 4 02/03/19 12:00 04/04/19 11:59 Ondansetron HCl (Zofran) 4 mg Q6H PRN IVP Nausea & Vomiting 02/03/19 12:00 03/03/19 11:59 Pantoprazole (Protonix) 40 mg DAILY IV 02/04/19 09:00 03/04/19 08:59 02/05/19 09:18 Vancomycin HCl (Vanco rx to dose) 1 ea DAILY PRN MISC Per rx protocol 02/03/19 12:00 03/05/19 11:59 Vancomycin HCl/ Dextrose 275 ml @ 183.333 mls/hr Q8H IVPB 02/03/19 17:00 02/08/19 16:59 02/06/19 00:59 Bill Dixon MD Feb 06, 2019 07:04
--- NOTE | 2019-02-06 07:15 | NUR ---
HAND-OFF: Report given to Ciro HINOJOSA. Endorsed plan of care.
--- NOTE | 2019-02-06 07:47 | General Progress Note ---
Assessment/Plan Problem List: (1) Seizures ICD Codes: R56.9 - Unspecified convulsions SNOMED: 38358747 (2) Cerebrovascular accident ICD Codes: I63.9 - Cerebral infarction, unspecified SNOMED: 333350884 (3) Peripheral edema ICD Codes: R60.9 - Edema, unspecified SNOMED: 087140122 (4) Cellulitis of groin, left ICD Codes: L03.314 - Cellulitis of groin SNOMED: 27890532 (5) Cellulitis ICD Codes: L03.90 - Cellulitis, unspecified SNOMED: 248827245 (6) COPD (chronic obstructive pulmonary disease) ICD Codes: J44.9 - Chronic obstructive pulmonary disease, unspecified SNOMED: 64924160 (7) Morbid obesity ICD Codes: E66.01 - Morbid (severe) obesity due to excess calories SNOMED: 789057100 (8) Abdominal pannus ICD Codes: E65 - Localized adiposity SNOMED: 7242051921819 (9) Abdominal wall cellulitis ICD Codes: L03.311 - Cellulitis of abdominal wall SNOMED: 59763971 (10) UTI (urinary tract infection) ICD Codes: N39.0 - Urinary tract infection, site not specified SNOMED: 48847020 Status: stable, progressing Assessment/Plan: o2 pulm tx abx pt diet cbc bmp am aru eval Subjective Constitutional: Reports: weakness Allergies: Coded Allergies: ASPIRIN (Verified Allergy, Unknown, 07/14/18) KETOROLAC (Verified Allergy, Unknown, 07/14/18) PENICILLINS (Verified Allergy, Unknown, 12/23/18) tolerated Ancef on 08/2018 All Systems: reviewed and negative except above Subjective o2nc sleepy calm Objective Last 24 Hour Vital Signs Date Time Temp Pulse Resp B/P (MAP) Pulse Ox O2 Delivery O2 Flow Rate FiO2 02/06/19 04:29 97.6 02/06/19 04:20 74 02/06/19 03:52 97.6 71 20 114/68 (83) 97 02/06/19 00:07 75 02/05/19 21:00 Nasal Cannula 2.0 02/05/19 20:49 97 Nasal Cannula 3.0 32 02/05/19 20:00 98.0 74 19 124/76 (92) 96 02/05/19 20:00 69 02/05/19 16:00 98.2 67 18 134/62 (86) 95 02/05/19 16:00 78 02/05/19 12:00 70 02/05/19 12:00 97.9 79 18 144/68 (93) 95 02/05/19 09:18 72 117/65 02/05/19 09:00 Nasal Cannula 2.0 02/05/19 08:00 98.2 72 20 117/65 (82) 97 02/05/19 08:00 71 Intake and Output 02/05/19 02/06/19 18:59 06:59 Intake Total 698.333 ml Output Total 2210 ml 400 ml Balance -1511.667 ml -400 ml Intake Oral 240 ml IV Total 458.333 ml Output Urine Total 1900 ml 400 ml Drainage Total 310 ml Height (Feet): 6 Height (Inches): 0.00 Weight (Pounds): 418 General Appearance: alert EENT: normal ENT inspection Neck: normal alignment Cardiovascular: normal peripheral pulses, normal rate, regular rhythm Respiratory/Chest: chest wall non-tender, lungs clear, normal breath sounds Abdomen: soft, hypoactive bowel sounds Extremities: normal inspection Edema: no edema noted Arm (L), no edema noted Arm (R), no edema noted Leg (L), no edema noted Leg (R), no edema noted Pedal (L), no edema noted Pedal (R), no edema noted Generalized Neurologic: responsive, motor weakness Skin: normal pigmentation, warm/dry Objective abd dressing c&d Ernesto NicoleIsa Feb 06, 2019 07:47
--- NOTE | 2019-02-06 07:58 | NUR ---
NURSE NOTES: Received patient from Mar Hernandez. Patient awake and alert. Not in distress. Complaining of generalized pain 04/06. PRN dilaudid given. All safety precautuions in Addendum: 02/06/19 at 0802 by Caterina Smith RN cont. of above.. place. will monitor patient.
[2019-02-06 08:00] VITALS: BP 136/77
[2019-02-06] MEDS: Miconazole 2% Cream 30gm TOPIC SCH ×2 (09:00→20:40)
[2019-02-06] MEDS: Pantoprazole Inj IV SCH (09:24)
[2019-02-06] MEDS: DULoxetine 30mg cap ORAL SCH (09:25)
--- NOTE | 2019-02-06 10:06 | NUR ---
NURSE NOTES: Per MD Dixon, pt can be downgraded to med surg. Orders noted and carried out.
--- NOTE | 2019-02-06 11:30 | Surgery Progress Note ---
Surgery Progress Note Subjective Additional Comments no acute events Objective Last 24 Hour Vital Signs Date Time Temp Pulse Resp B/P (MAP) Pulse Ox O2 Delivery O2 Flow Rate FiO2 02/06/19 10:19 97.5 02/06/19 09:25 75 136/77 02/06/19 09:00 Nasal Cannula 2.0 02/06/19 08:00 75 02/06/19 08:00 97.5 99 20 136/77 (96) 96 02/06/19 04:29 97.6 02/06/19 04:20 74 02/06/19 03:52 97.6 71 20 114/68 (83) 97 02/06/19 00:07 75 02/05/19 21:00 Nasal Cannula 2.0 02/05/19 20:49 97 Nasal Cannula 3.0 32 02/05/19 20:00 98.0 74 19 124/76 (92) 96 02/05/19 20:00 69 02/05/19 16:00 98.2 67 18 134/62 (86) 95 02/05/19 16:00 78 02/05/19 12:00 70 02/05/19 12:00 97.9 79 18 144/68 (93) 95 I&O Intake and Output 02/05/19 02/06/19 18:59 06:59 Intake Total 698.333 ml Output Total 2210 ml 400 ml Balance -1511.667 ml -400 ml Intake Oral 240 ml IV Total 458.333 ml Output Urine Total 1900 ml 400 ml Drainage Total 310 ml Dressing: saturated Wound: clean Drains: lisbet Cardiovascular: RSR Respiratory: clear Abdomen: soft, present bowel sounds, non-distended Extremities: edema, no cyanosis Plan Problems: (1) Cellulitis of groin, left (2) Cellulitis Assessment & Plan: chronic cellulitis of pannus s/p panniculectomy now extubated and recovering pain controlled Doing well post op. Patient not to ambulate or lay flat as this would put too much tension on the incision. Ok to do PT in bed. dressings changed wound stable will monitor okay for diet -iv abx -drain care -keep lindsey in place dressing changes -AM labs will follow with recs (3) COPD (chronic obstructive pulmonary disease) (4) Morbid obesity (5) Lumbar spondylosis (6) Right heart failure (7) ADALBERTO (obstructive sleep apnea) (8) Abdominal pannus (9) Seizures (10) Cerebrovascular accident (11) Peripheral edema (12) Abdominal wall cellulitis (13) UTI (urinary tract infection) (14) Hyponatremia (15) Uncontrolled seizures (16) Knee osteomyelits, right Gt Fernandez Feb 06, 2019 11:30
[2019-02-06 12:00] VITALS: BP 149/75
[2019-02-06] MEDS ORDERED: fentaNYL Destruction MISC SCH ×2 (12:00)
[2019-02-06] MEDS ORDERED: Acetaminophen 650mg/20.3ml NG PRN (12:25)
--- NOTE | 2019-02-06 12:26 | NUR ---
INTER-FACILITY TRANSFER: Patient transferred to [facility] (rm [id number]), per Dr. Dixon. Report given to Franny Reeder Rn. Patient transferred with valuables and medications. Plan of care endoresed to RN.
[2019-02-06] MEDS ORDERED: LORazepam Inj 2mg/ml 1ml IV PRN (12:28)
[2019-02-06] MEDS ORDERED: Naloxone 0.4mg/ml Inj IV PRN (12:30)
[2019-02-06] MEDS ORDERED: Acetaminophen 650mg/20.3ml ORAL PRN (12:30)
--- NOTE | 2019-02-06 12:30 | NUR ---
NURSE NOTES: received patient from Telemetry. Patient is stable. AO x4. No s/s symptoms of distress. PICC double lumen on L upper arm patent and intact. On NC 2L. S/P panniculectomy on 02/01 and s/p extubation 02/02. MARQUEZ drainage on RUQ, RLQ, LLQ draining serosanguineous fluids. Fentanyl patch on R shoulder. Dressing on abd. intact. SCD on. FC draining dark alber colored urine. All belongings were accounted for. Refused to check for skin on the sacral area. Re-orientation given about the unit. Will continue the plan of care
--- NOTE | 2019-02-06 12:57 | NUR ---
CASE MANAGEMENT: REVIEW 02/06/2019 SI:CELLULITIS ABD PAIN. T 97.5 HR 99 RR 20 B/P 136/77 SATS 96% ON 2L/NC NO LABS TODAY IS: NORVASC PO QD CYMBALTA PO QD PROTONIX IV QD FENTANYL PATCH TDERMAL Q72H VANCO IV Q8H KEPPRA PO Q8H MED/SURG STATUS
--- NOTE | 2019-02-06 12:59 | NUR ---
CHARGE NURSE NOTE: Received patient from telemetry,. 02/05/19 H@H 7.8/24.4. was called and asked if he wants to check pt's blood today. He replied that he wants CBC tomorrow.
[2019-02-06] MEDS: levETIRAcetam 500mg/5ml Liquid ORAL SCH ×2 (13:27→21:21)
--- NOTE | 2019-02-06 14:55 | Cardiac Electrophysiology PN ---
Assessment/Plan Assessment/Plan 1. Hypertension. On amlodipine 5 daily . EF 60% 2. Severe bilateral lower extremity edema and cellulitis. On IV Vancomycin per Dr. Patterson. 3. Abdominal pannus. S/P Resection of pannus 02/01/19 4. COPD and ADALBERTO. 5. S/P Resp failure, extubated 6. Right heart failure. 7. Lumbar spondylosis. 8. Morbid obesity. DW RN Subjective Subjective Now off tele. No CP or SOB. Still has 3 abdominal drains Objective Last 24 Hour Vital Signs Date Time Temp Pulse Resp B/P (MAP) Pulse Ox O2 Delivery O2 Flow Rate FiO2 02/06/19 12:00 97.9 79 16 149/75 (99) 97 02/06/19 11:32 97.5 02/06/19 11:32 97.5 02/06/19 09:25 75 136/77 02/06/19 09:00 Nasal Cannula 2.0 02/06/19 08:00 75 02/06/19 08:00 97.5 99 20 136/77 (96) 96 02/06/19 04:29 97.6 02/06/19 04:20 74 02/06/19 03:52 97.6 71 20 114/68 (83) 97 02/06/19 00:07 75 02/05/19 21:00 Nasal Cannula 2.0 02/05/19 20:49 97 Nasal Cannula 3.0 32 02/05/19 20:00 98.0 74 19 124/76 (92) 96 02/05/19 20:00 69 02/05/19 16:00 98.2 67 18 134/62 (86) 95 02/05/19 16:00 78 Intake and Output 02/05/19 02/06/19 19:00 07:00 Intake Total 698.333 ml Output Total 2210 ml 400 ml Balance -1511.667 ml -400 ml Intake Oral 240 ml IV Total 458.333 ml Output Urine Total 1900 ml 400 ml Drainage Total 310 ml Objective HEAD AND NECK: No JVD. LUNGS: Clear. CARDIOVASCULAR: Regular S1 and S2 with no gallop or murmur. ABDOMEN: Very swollen, erythematous, and enlarged scrotum. S/P abdominal surgery with drains EXTREMITIES: 2+ pitting edema and cellulitis of the legs. Carlos Yee MD Feb 06, 2019 14:55
[2019-02-06 16:00] VITALS: BP 127/63
--- NOTE | 2019-02-06 16:00 | NUR ---
NURSE NOTES: Skin assessment done, no redness on pressure points such as Back, bilateral heels, bilateral trochanter,sacra, bilateral ischial tuberosity, bilateral shoulders,back of his head,elbows. Noted with small discoloration on the right buttocks measuring 0.3x0.4cm, skin intact. Skin assessment done by RN and charge nurse.Proper skin care done. Reposition done and heels are floated to off the load. Encouraged the patient to turn Q2hr and explained of the importance of turning. Will assist the patient with turning.
[2019-02-06] MEDS: VANCOMYCIN 1250 MG IVPB SCH (17:29)
--- NOTE | 2019-02-06 17:30 | NUR ---
NURSE NOTES: Patient received methadone at 1425 and still had breakthrough pain at 1525. BP and RR were stable. Dilaudid was given at 1525. Will continue to monitor
--- NOTE | 2019-02-06 19:29 | NUR ---
HAND-OFF: Report given to MICAELA banerjee.
[2019-02-06 20:00] VITALS: BP 132/73
[2019-02-06] MEDS: Dyna-Hex 2% Top Sol 2oz TOPIC SCH (20:38)
--- NOTE | 2019-02-06 20:38 | NUR ---
NURSE NOTES: Patient in bed, awake, alert and verbal. Abdomen is soft, noted with lawrence, dry. Picc line on the left arm, patent. On nasal cannula 2 L. Noted with 3 drains, one on left abdomen and 2 on the right, draining. Call light is at bedside. Will continue plan of care.
--- NOTE | 2019-02-06 21:00 | NUR ---
NURSE NOTES: Complained of pain 04/06, gave PRn pain medication as ordered.
--- NOTE | 2019-02-06 22:00 | Progress Note ---
DATE: 02/06/2019 SUBJECTIVE: This is a 53-year-old male patient, who continues to have some depression and confusion. He has , he still has some anxiety and depression, and he has cellulitis . MENTAL STATUS EXAMINATION: A 53-year-old male. Appearance is disheveled. Attitude, irritable and agitated. Affect, restricted. Intellect poor. Mood, depressed and anxious. Motor activity, psychomotor agitation. Attention span is poor. Orientation x2. Speech is pressured. Thought process, disorganized and illogical. Insight and judgment is poor. DIAGNOSIS: Major depressive disorder, mild, recurrent, without psychotic features. PLAN: Treat him with Cymbalta 30 mg daily. Provided 20 minutes of cognitive behavioral therapy to help him identify his automatic negative thoughts and help him convert those negative thoughts to more positive thoughts, to reduce depression, anxiety, and mood lability. Chart reviewed. Discussed with staff. Seen and assessed in his room. Laney Mcghee M.D. DR: ENRIQUE JOB#: [id number] CC:
[2019-02-06 23:33] VITALS: BP 130/66
[2019-02-07] MEDS: VANCOMYCIN 1250 MG IVPB SCH ×3 (00:55→16:40)
[2019-02-07 04:00] VITALS: BP 133/71
--- NOTE | 2019-02-07 04:45 | NUR ---
NURSE NOTES: Right lower quadrant MARQUEZ drain is out. Charge nurse made aware. NO bleeding noted. NO complaint of pain from the site from the patient. Clear drainage noted. covered with dry dressing. Call light is at bedside. Will continue plan of care.
[2019-02-07] MEDS: levETIRAcetam 500mg/5ml Liquid ORAL SCH ×3 (05:31→22:08)
--- NOTE | 2019-02-07 05:45 | NUR ---
NURSE NOTES: Patient was given PRN pain medication, call light is at bedside. Will continue plan of care.
--- NOTE | 2019-02-07 06:00 | NUR ---
NURSE NOTES: Dr. Fernandez was called regarding MARQUEZ drain accidentally removed. No new order. Call light is at bedside.
--- NOTE | 2019-02-07 06:25 | NUR ---
NURSE NOTES: Picc line, unable to draw labs. Charge nurse made aware. Will inform lab.
--- NOTE | 2019-02-07 07:00 | NUR ---
HAND-OFF: Report given to MICAELA Guzman.
--- NOTE | 2019-02-07 07:30 | Progress Note ---
DATE: 02/07/2019 SUBJECTIVE: The patient is a 53-year-old male with cellulitis. He has increased anxiety and depression, worsened by stress of his medical illness. That is why, his attending has requested daily psychiatric consultation. DIAGNOSIS: Major depressive disorder, mild, recurrent, without psychotic features. PLAN: Treat him with Cymbalta 30 mg daily. A 20 minutes of cognitive behavioral therapy provided to help him identify his automatic negative thoughts and help him convert those negative thoughts to more positive thoughts, to reduce depression, anxiety, and mood lability. Chart reviewed. Discussed with staff. Seen and assessed in his room. A 20 minutes of cognitive therapy was provided. Laney Mcghee M.D. DR: GUTIERREZ JOB#: [id number] CC:
[2019-02-07 08:00] VITALS: BP 138/86
[2019-02-07] MEDS ORDERED: D5 1/2NS 1000ml IV ONE (08:49)
[2019-02-07] MEDS: DULoxetine 30mg cap ORAL SCH (08:50)
[2019-02-07] MEDS: Pantoprazole Inj IV SCH (08:52)
[2019-02-07] MEDS: Miconazole 2% Cream 30gm TOPIC SCH ×2 (08:52→20:36)
--- NOTE | 2019-02-07 09:39 | General Progress Note ---
Assessment/Plan Problem List: (1) Seizures ICD Codes: R56.9 - Unspecified convulsions SNOMED: 50230357 (2) Cerebrovascular accident ICD Codes: I63.9 - Cerebral infarction, unspecified SNOMED: 335418437 (3) Peripheral edema ICD Codes: R60.9 - Edema, unspecified SNOMED: 450540927 (4) Cellulitis of groin, left ICD Codes: L03.314 - Cellulitis of groin SNOMED: 43839872 (5) Cellulitis ICD Codes: L03.90 - Cellulitis, unspecified SNOMED: 659166247 (6) COPD (chronic obstructive pulmonary disease) ICD Codes: J44.9 - Chronic obstructive pulmonary disease, unspecified SNOMED: 00530888 (7) Morbid obesity ICD Codes: E66.01 - Morbid (severe) obesity due to excess calories SNOMED: 505394276 (8) Abdominal pannus ICD Codes: E65 - Localized adiposity SNOMED: 7582319890789 (9) Abdominal wall cellulitis ICD Codes: L03.311 - Cellulitis of abdominal wall SNOMED: 66206582 (10) UTI (urinary tract infection) ICD Codes: N39.0 - Urinary tract infection, site not specified SNOMED: 47632736 Status: stable, progressing Assessment/Plan: o2 pulm tx abx pt diet cbc bmp am aru eval Subjective Constitutional: Reports: weakness Allergies: Coded Allergies: ASPIRIN (Verified Allergy, Unknown, 07/14/18) KETOROLAC (Verified Allergy, Unknown, 07/14/18) PENICILLINS (Verified Allergy, Unknown, 12/23/18) tolerated Ancef on 08/2018 All Systems: reviewed and negative except above Subjective o2nc sleepy calm Objective Last 24 Hour Vital Signs Date Time Temp Pulse Resp B/P (MAP) Pulse Ox O2 Delivery O2 Flow Rate FiO2 02/07/19 08:51 80 138/86 02/07/19 08:00 98.6 80 20 138/86 (103) 95 02/07/19 04:00 98.4 69 17 133/71 (91) 95 02/06/19 23:33 98.5 69 18 130/66 (87) 95 69 02/06/19 21:00 Nasal Cannula 2.0 02/06/19 20:00 98.6 72 18 132/73 (92) 95 02/06/19 16:00 98.4 77 17 127/63 (84) 95 77 02/06/19 12:00 97.9 79 16 149/75 (99) 97 02/06/19 11:32 97.5 02/06/19 11:32 97.5 Intake and Output 02/06/19 02/07/19 18:59 06:59 Intake Total 1115.000 ml 275.000 ml Output Total 1655 ml 870 ml Balance -540.000 ml -595.000 ml Intake Oral 840 ml IV Total 275.000 ml 275.000 ml Output Urine Total 1500 ml 800 ml Drainage Total 155 ml 70 ml Laboratory Tests 02/07/19 08:05: White Blood Count [Pending], Red Blood Count [Pending], Hemoglobin [Pending], Hematocrit [Pending], Mean Corpuscular Volume [Pending], Mean Corpuscular Hemoglobin [Pending], Mean Corpuscular Hemoglobin Concent [Pending], Red Cell Distribution Width [Pending], Platelet Count [Pending], Mean Platelet Volume [ Pending], Neutrophils (%) (Auto) [Pending], Lymphocytes (%) (Auto) [Pending], Monocytes (%) (Auto) [Pending], Eosinophils (%) (Auto) [Pending], Basophils (%) (Auto) [Pending], Sodium Level [Pending], Potassium Level [Pending], Chloride Level [Pending], Carbon Dioxide Level [Pending], Blood Urea Nitrogen [Pending], Creatinine [Pending], Estimat Glomerular Filtration Rate [Pending], Glucose Level [Pending], Calcium Level [Pending] Height (Feet): 6 Height (Inches): 0.00 Weight (Pounds): 418 General Appearance: lethargic EENT: normal ENT inspection Neck: normal alignment Cardiovascular: normal peripheral pulses, normal rate, regular rhythm Respiratory/Chest: chest wall non-tender, lungs clear, normal breath sounds Abdomen: soft, hypoactive bowel sounds Extremities: normal inspection Edema: 1+ Arm (L), 1+ Arm (R), 1+ Leg (L), 1+ Leg (R), 1+ Pedal (L), 1+ Pedal ( R), 1+ Generalized Edema: trace edema Neurologic: motor weakness Skin: normal pigmentation, warm/dry Objective abd dressing c&d Ernesto Nicole DO Feb 07, 2019 09:39
[2019-02-07 09:45] LABS: BASOPHILS % (AUTO) 1.2 % (0.0-2.0); EOSINOPHILS % (AUTO) 4.8 % (0.0-3.0); HEMATOCRIT 25.5 % (42.0-52.0); HEMOGLOBIN 8.2 G/DL (14.2-18.0); LYMPHOCYTES % (AUTO) 23.8 % (20.0-45.0); MEAN CORPUSCULAR VOLUME 93 FL (80-99); NEUTROPHILS % (AUTO) 62.2 % (45.0-75.0); PLATELET COUNT 304 K/UL (150-450); RED BLOOD COUNT 2.76 M/UL (4.70-6.10); RED CELL DISTRIBUTION WIDTH 13.2 % (11.6-14.8); WHITE BLOOD COUNT 7.6 K/UL (4.8-10.8)
[2019-02-07 10:25] LABS: ANION GAP 2 mmol/L (5-15); BLOOD UREA NITROGEN 13 mg/dL (7-18); CALCIUM 8.9 MG/DL (8.5-10.1); CARBON DIOXIDE 36 MMOL/L (21-32); CHLORIDE 102 MMOL/L (98-107); CREATININE 0.7 MG/DL (0.55-1.30); POTASSIUM 4.1 MMOL/L (3.5-5.1); SODIUM 140 MMOL/L (136-145)
--- NOTE | 2019-02-07 10:56 | Infectious Diseases Prog Note ---
Assessment/Plan Assessment/Plan Assessment: 02/01 SP Panniculectomy VDRF (post-op)- s/p extubation 02/02 Low grade fever x1 Mild leukocytosis- likely post op- resolved -02/01 CXR: Mild interstitial congestive changes persist, stable sp cx normal resp wesley (prelim) R groin swelling and pain- 2ry from Volume overload Sandy intertrigo; improving B/l Leg cellulitis and panniculitis - in the setting of chronic venous stasis, s /p Rx Active infectious cellulitis essentially resolved. Now he has chronic venous stasis and neuropathic pain with poorly healing wounds. Alot off this is due to the severe swelling in his feet but also he is poorly compliant with wound care instructions. Afebrile No leukocytosis Recent seizure episode -had L side weakness and spasticity CVA HTN bipolar disorder w/ psychotic features tobacco abuse anxiety disorder chronic pain CHF seizure disorder COPD morbid obesity Dm2 HTN SNF resident Plan: -Continue periop IV Vancomycin #7 -Cont Miconazole topical - Needs wound care for healing. -02/04 SP Aztreonam #4 -01/26 SP Fluconzole #5 - 01/07/19 SP IV Dapto d# 14 - 01/06/19 S/P Levofloxacin #7 - 12/25 sp Bactrim #4/ and add IV Ancef #/ for cellulitis - Monitor CBC/CMP, temperatures - aspiration precautions - wound care per hospital protocol -plastic sx, Gen sx f/u -f/ucx Subjective Allergies: Coded Allergies: ASPIRIN (Verified Allergy, Unknown, 07/14/18) KETOROLAC (Verified Allergy, Unknown, 07/14/18) PENICILLINS (Verified Allergy, Unknown, 12/23/18) tolerated Ancef on 08/2018 Subjective Afebrile No leukocytosis Objective Vital Signs Last 24 Hour Vital Signs Date Time Temp Pulse Resp B/P (MAP) Pulse Ox O2 Delivery O2 Flow Rate FiO2 02/07/19 09:00 Nasal Cannula 2.0 02/07/19 08:51 80 138/86 02/07/19 08:00 98.6 80 20 138/86 (103) 95 02/07/19 04:00 98.4 69 17 133/71 (91) 95 02/06/19 23:33 98.5 69 18 130/66 (87) 95 69 02/06/19 21:00 Nasal Cannula 2.0 02/06/19 20:00 98.6 72 18 132/73 (92) 95 02/06/19 16:00 98.4 77 17 127/63 (84) 95 77 02/06/19 12:00 97.9 79 16 149/75 (99) 97 02/06/19 11:32 97.5 02/06/19 11:32 97.5 Height (Feet): 6 Height (Inches): 0.00 Weight (Pounds): 418 Objective Gen: NAD HEENT: NCAT, MMM, Respiratory: CTAB Card: RRR, S1, S2 Abd: Soft, NT Laboratory Tests Test 02/07/19 08:05 White Blood Count 7.6 K/UL (4.8-10.8) Red Blood Count 2.76 M/UL (4.70-6.10) L Hemoglobin 8.2 G/DL (14.2-18.0) L Hematocrit 25.5 % (42.0-52.0) L Mean Corpuscular Volume 93 FL (80-99) Mean Corpuscular Hemoglobin 29.7 PG (27.0-31.0) Mean Corpuscular Hemoglobin Concent 32.0 G/DL (32.0-36.0) Red Cell Distribution Width 13.2 % (11.6-14.8) Platelet Count 304 K/UL (150-450) Mean Platelet Volume 4.3 FL (6.5-10.1) L Neutrophils (%) (Auto) 62.2 % (45.0-75.0) Lymphocytes (%) (Auto) 23.8 % (20.0-45.0) Monocytes (%) (Auto) 8.0 % (1.0-10.0) Eosinophils (%) (Auto) 4.8 % (0.0-3.0) H Basophils (%) (Auto) 1.2 % (0.0-2.0) Sodium Level 140 MMOL/L (136-145) Potassium Level 4.1 MMOL/L (3.5-5.1) Chloride Level 102 MMOL/L (98-107) Carbon Dioxide Level 36 MMOL/L (21-32) H Anion Gap 2 mmol/L (5-15) L Blood Urea Nitrogen 13 mg/dL (7-18) Creatinine 0.7 MG/DL (0.55-1.30) Estimat Glomerular Filtration Rate > 60 mL/min (>60) Glucose Level 90 MG/DL (74-106) Calcium Level 8.9 MG/DL (8.5-10.1) Current Medications Medications (Trade) Dose Ordered Sig/Luis Route PRN Reason Start Time Stop Time Status Last Admin Dose Admin Acetaminophen (Tylenol) 650 mg Q4H PRN ORAL T>100.5 02/06/19 12:30 03/08/19 12:24 Amlodipine Besylate (Norvasc) 5 mg DAILY ORAL 02/07/19 09:00 02/22/19 08:59 02/07/19 08:51 Chlorhexidine Gluconate (Ruby-Hex 2%) 1 applic DAILY@1999 TOPIC 02/06/19 20:00 02/26/19 19:59 02/06/19 20:38 Dextrose (Dextrose 50%) 25 ml Q30M PRN IV Hypoglycemia 02/06/19 12:30 02/21/19 10:59 Dextrose (Dextrose 50%) 50 ml Q30M PRN IV hypoglycemia 02/06/19 12:30 02/21/19 10:59 Duloxetine HCl (Cymbalta) 30 mg DAILY ORAL 02/07/19 09:00 02/22/19 08:59 02/07/19 08:50 Fentanyl (Duragesic) 1 patch Q72H TDERMAL 02/09/19 12:00 02/10/19 11:59 Hydromorphone HCl (Dilaudid) 4 mg Q3H PRN IV BREAKTHROUGH PAIN 02/06/19 12:27 02/13/19 12:26 02/07/19 08:46 Levetiracetam (Keppra) 1,000 mg Q8HR ORAL 02/06/19 14:00 02/21/19 13:59 02/07/19 05:31 Lorazepam (Ativan 2mg/ml 1ml) 2 mg Q4H PRN IV For Anxiety 02/06/19 12:28 02/13/19 12:27 Methadone HCl (Methadone HCl) 10 mg Q6H PRN ORAL For Pain 02/06/19 12:28 02/13/19 12:27 02/07/19 10:06 Miconazole Nitrate (Miconazole Nitrate) 1 applic Q12HR TOPIC 02/06/19 21:00 03/05/19 20:59 02/07/19 08:52 Miscellaneous Medication (fentaNYL Destruction) 1 ea Q72H MISC 02/09/19 12:00 03/08/19 11:59 Naloxone HCl (Narcan) 0.1 mg PRN IV Sedation scale 3 or 4 02/06/19 12:30 04/04/19 11:59 Ondansetron HCl (Zofran) 4 mg Q6H PRN IVP Nausea & Vomiting 02/06/19 12:28 03/08/19 12:27 Pantoprazole (Protonix) 40 mg DAILY IV 02/07/19 09:00 03/04/19 08:59 02/07/19 08:52 Vancomycin HCl (Vanco rx to dose) 1 ea DAILY PRN MISC Per rx protocol 02/07/19 09:00 03/05/19 11:59 Vancomycin HCl/ Dextrose 275 ml @ 183.333 mls/hr Q8H IVPB 02/06/19 17:00 02/08/19 16:59 02/07/19 08:52 Elliot Chauhan MD Feb 07, 2019 10:56
--- NOTE | 2019-02-07 11:44 | NUR ---
PT Note PT re-eval completed. Pt is alert, cooperative and motivated. Patient has LE muscle weakness specially on the LLE, limited by pain with ROM. Patient's mobility is restricted at this time due to surgical precautions as recommended by MD: "Patient not to ambulate or lay flat as this would put too much tension on the incision. Ok to do PT in bed." Patient needs PT to increase his muscle strength. Will upgrade PT treatments/goals as MD orders/recommends. Addendum: 02/07/19 at 1145 by SHELLY QUINTEROS PT Amended: Links added.
[2019-02-07 12:00] VITALS: BP 140/102
--- NOTE | 2019-02-07 13:06 | NUR ---
NURSE NOTES: DRY DRESSING APPLIED TO LOWER EXTREMITIES TO PREVENT DIRECT CONTACT WITH SCDs. LEFT LOWER EXTREMITY IS DRY, NO OPEN WOUNDS NOTED, AND NO DRAINAGE.
--- NOTE | 2019-02-07 13:14 | Surgery Progress Note ---
Surgery Progress Note Subjective Symptoms: improved, tolerating diet, passing flatus Additional Comments right lower drain came out. unknown how dressings intact tolerating diet pain somewhat controlled Objective Last 24 Hour Vital Signs Date Time Temp Pulse Resp B/P (MAP) Pulse Ox O2 Delivery O2 Flow Rate FiO2 02/07/19 12:00 98.3 79 20 140/102 (115) 96 02/07/19 09:00 Nasal Cannula 2.0 02/07/19 08:51 80 138/86 02/07/19 08:00 98.6 80 20 138/86 (103) 95 02/07/19 04:00 98.4 69 17 133/71 (91) 95 02/06/19 23:33 98.5 69 18 130/66 (87) 95 69 02/06/19 21:00 Nasal Cannula 2.0 02/06/19 20:00 98.6 72 18 132/73 (92) 95 02/06/19 16:00 98.4 77 17 127/63 (84) 95 77 I&O Intake and Output 02/06/19 02/07/19 18:59 06:59 Intake Total 1115.000 ml 275.000 ml Output Total 1655 ml 870 ml Balance -540.000 ml -595.000 ml Intake Oral 840 ml IV Total 275.000 ml 275.000 ml Output Urine Total 1500 ml 800 ml Drainage Total 155 ml 70 ml Dressing: saturated Wound: clean Drains: lisbet Cardiovascular: RSR Respiratory: clear Abdomen: soft, non-tender, present bowel sounds, non-distended Extremities: edema, no cyanosis Laboratory Tests Test 02/07/19 08:05 White Blood Count 7.6 K/UL (4.8-10.8) Red Blood Count 2.76 M/UL (4.70-6.10) L Hemoglobin 8.2 G/DL (14.2-18.0) L Hematocrit 25.5 % (42.0-52.0) L Mean Corpuscular Volume 93 FL (80-99) Mean Corpuscular Hemoglobin 29.7 PG (27.0-31.0) Mean Corpuscular Hemoglobin Concent 32.0 G/DL (32.0-36.0) Red Cell Distribution Width 13.2 % (11.6-14.8) Platelet Count 304 K/UL (150-450) Mean Platelet Volume 4.3 FL (6.5-10.1) L Neutrophils (%) (Auto) 62.2 % (45.0-75.0) Lymphocytes (%) (Auto) 23.8 % (20.0-45.0) Monocytes (%) (Auto) 8.0 % (1.0-10.0) Eosinophils (%) (Auto) 4.8 % (0.0-3.0) H Basophils (%) (Auto) 1.2 % (0.0-2.0) Sodium Level 140 MMOL/L (136-145) Potassium Level 4.1 MMOL/L (3.5-5.1) Chloride Level 102 MMOL/L (98-107) Carbon Dioxide Level 36 MMOL/L (21-32) H Anion Gap 2 mmol/L (5-15) L Blood Urea Nitrogen 13 mg/dL (7-18) Creatinine 0.7 MG/DL (0.55-1.30) Estimat Glomerular Filtration Rate > 60 mL/min (>60) Glucose Level 90 MG/DL (74-106) Calcium Level 8.9 MG/DL (8.5-10.1) Plan Problems: (1) Cellulitis of groin, left (2) Cellulitis Assessment & Plan: chronic cellulitis of pannus s/p panniculectomy now extubated and recovering pain controlled Doing well post op. Patient not to ambulate or lay flat as this would put too much tension on the incision. Ok to do PT in bed. dressings changed wound stable will monitor okay for diet -iv abx -drain care -keep lindsey in place dressing changes -AM labs will follow with recs (3) COPD (chronic obstructive pulmonary disease) (4) Morbid obesity (5) Lumbar spondylosis (6) Right heart failure (7) ADALBERTO (obstructive sleep apnea) (8) Abdominal pannus (9) Seizures (10) Cerebrovascular accident (11) Peripheral edema (12) Abdominal wall cellulitis (13) UTI (urinary tract infection) (14) Hyponatremia (15) Uncontrolled seizures (16) Knee osteomyelits, right Adina Fernandezya Feb 07, 2019 13:14
--- NOTE | 2019-02-07 14:04 | NUR ---
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 ABD PAIN VS: BP 140/102, P 79, T 98.3, RR 20, SpO2 96 on 2.0 NC RBC 2.76, H&H 8.2/25.5 IS:METHADONE 10mg PROTONIX 40mg IV CYMBALTA 30mg NORVASC 5mg VANCOMYCIN 275ml IVPB DILAUDID 4mg IV KEPPRA 1,000mg PLAN: IV ABX DRAIN CARE OKAY FOR DIET MED/SURG STATUS
[2019-02-07 15:57] VITALS: BP 131/64
--- NOTE | 2019-02-07 19:24 | NUR ---
HAND-OFF: Report given to Leigh FRANZ RN.
--- NOTE | 2019-02-07 19:54 | Cardiac Electrophysiology PN ---
Assessment/Plan Assessment/Plan 1. Hypertension. On amlodipine 5 daily . EF 60% 2. Severe bilateral lower extremity edema and cellulitis. On abx per Dr. Patterson. 3. Abdominal pannus. S/P Resection of pannus 02/01/19 4. COPD and ADALBERTO. 5. S/P Resp failure, extubated 6. Right heart failure. 7. Lumbar spondylosis. 8. Morbid obesity. Subjective Subjective No CP or SOB. Still has abdominal drains. No events Objective Last 24 Hour Vital Signs Date Time Temp Pulse Resp B/P (MAP) Pulse Ox O2 Delivery O2 Flow Rate FiO2 02/07/19 15:57 98.4 79 19 131/64 (86) 98 02/07/19 12:00 98.3 79 20 140/102 (115) 96 02/07/19 09:00 Nasal Cannula 2.0 02/07/19 08:51 80 138/86 02/07/19 08:25 98 Nasal Cannula 3.0 32 02/07/19 08:00 98.6 80 20 138/86 (103) 95 02/07/19 04:00 98.4 69 17 133/71 (91) 95 02/06/19 23:33 98.5 69 18 130/66 (87) 95 69 02/06/19 21:00 Nasal Cannula 2.0 02/06/19 20:00 98.6 72 18 132/73 (92) 95 Intake and Output 02/06/19 02/07/19 19:00 07:00 Intake Total 1115.000 ml 275.000 ml Output Total 1655 ml 870 ml Balance -540.000 ml -595.000 ml Intake Oral 840 ml IV Total 275.000 ml 275.000 ml Output Urine Total 1500 ml 800 ml Drainage Total 155 ml 70 ml Laboratory Tests Test 02/07/19 08:05 White Blood Count 7.6 K/UL (4.8-10.8) Red Blood Count 2.76 M/UL (4.70-6.10) L Hemoglobin 8.2 G/DL (14.2-18.0) L Hematocrit 25.5 % (42.0-52.0) L Mean Corpuscular Volume 93 FL (80-99) Mean Corpuscular Hemoglobin 29.7 PG (27.0-31.0) Mean Corpuscular Hemoglobin Concent 32.0 G/DL (32.0-36.0) Red Cell Distribution Width 13.2 % (11.6-14.8) Platelet Count 304 K/UL (150-450) Mean Platelet Volume 4.3 FL (6.5-10.1) L Neutrophils (%) (Auto) 62.2 % (45.0-75.0) Lymphocytes (%) (Auto) 23.8 % (20.0-45.0) Monocytes (%) (Auto) 8.0 % (1.0-10.0) Eosinophils (%) (Auto) 4.8 % (0.0-3.0) H Basophils (%) (Auto) 1.2 % (0.0-2.0) Sodium Level 140 MMOL/L (136-145) Potassium Level 4.1 MMOL/L (3.5-5.1) Chloride Level 102 MMOL/L (98-107) Carbon Dioxide Level 36 MMOL/L (21-32) H Anion Gap 2 mmol/L (5-15) L Blood Urea Nitrogen 13 mg/dL (7-18) Creatinine 0.7 MG/DL (0.55-1.30) Estimat Glomerular Filtration Rate > 60 mL/min (>60) Glucose Level 90 MG/DL (74-106) Calcium Level 8.9 MG/DL (8.5-10.1) Objective HEAD AND NECK: No JVD. LUNGS: Clear. CARDIOVASCULAR: Regular S1 and S2 with no gallop or murmur. ABDOMEN: Very swollen, erythematous, and enlarged scrotum. S/P abdominal surgery with drains EXTREMITIES: 2+ pitting edema and cellulitis of the legs. Carlos Yee MD Feb 07, 2019 19:54
[2019-02-07 20:00] VITALS: BP 123/62
--- NOTE | 2019-02-07 20:02 | NUR ---
NURSE NOTES: Received patient in bed, awake, alert, oriented, no acute distress noted, Picc line site is clean dry and intact, NC at 2 liters /min, VSS, afebrile. Call light is within reach, bed is in low position, locked and alarm is on. Will continue to monitor for safety and comfort.
[2019-02-07] MEDS: Dyna-Hex 2% Top Sol 2oz TOPIC SCH (20:35)
[2019-02-07 21:42] VITALS: BP_SYST 62
[2019-02-08] VITALS: BP 123/73
[2019-02-08] MEDS: VANCOMYCIN 1250 MG IVPB SCH ×2 (00:50→08:55)
[2019-02-08 04:35] VITALS: BP 119/75
[2019-02-08] MEDS: levETIRAcetam 500mg/5ml Liquid ORAL SCH ×3 (05:26→22:11)
--- NOTE | 2019-02-08 07:23 | NUR ---
HAND-OFF: Report given to Oriana HINOJOSA.
--- NOTE | 2019-02-08 07:53 | NUR ---
NURSE NOTES: Pt resting in bed. A/o x 4, calm. pts on 2L O2 via NC, sat 92-93%. Complained of abd pain, 4/10. Abd dressing CDI, [address] with small amount of output. lindsey in place, draining clear yellow urine. SCDs on. call light within reach, bed in low position, fall precaution maintained, pt refused side rails padded, pts on Keppra, education provided. will continue to monitor.
[2019-02-08 08:00] VITALS: BP 120/63
[2019-02-08 08:23] LABS: BASOPHILS % (AUTO) 0.9 % (0.0-2.0); EOSINOPHILS % (AUTO) 6.2 % (0.0-3.0); HEMATOCRIT 25.9 % (42.0-52.0); HEMOGLOBIN 8.3 G/DL (14.2-18.0); LYMPHOCYTES % (AUTO) 22.9 % (20.0-45.0); MEAN CORPUSCULAR VOLUME 93 FL (80-99); MONOCYTES % (AUTO) 6.6 % (1.0-10.0); NEUTROPHILS % (AUTO) 63.4 % (45.0-75.0); PLATELET COUNT 335 K/UL (150-450); RED BLOOD COUNT 2.79 M/UL (4.70-6.10); RED CELL DISTRIBUTION WIDTH 13.2 % (11.6-14.8); WHITE BLOOD COUNT 7.8 K/UL (4.8-10.8)
[2019-02-08 08:40] LABS: ANION GAP 1 mmol/L (5-15); BLOOD UREA NITROGEN 12 mg/dL (7-18); CALCIUM 8.8 MG/DL (8.5-10.1); CARBON DIOXIDE 37 MMOL/L (21-32); CHLORIDE 103 MMOL/L (98-107); CREATININE 0.8 MG/DL (0.55-1.30); SODIUM 140 MMOL/L (136-145)
[2019-02-08] MEDS: Pantoprazole Inj IV SCH (08:45)
[2019-02-08] MEDS: DULoxetine 30mg cap ORAL SCH (08:47)
[2019-02-08] MEDS: Miconazole 2% Cream 30gm TOPIC SCH ×2 (08:55→21:31)
--- NOTE | 2019-02-08 09:12 | General Progress Note ---
Assessment/Plan Problem List: (1) Seizures ICD Codes: R56.9 - Unspecified convulsions SNOMED: 64891078 (2) Cerebrovascular accident ICD Codes: I63.9 - Cerebral infarction, unspecified SNOMED: 768425406 (3) Peripheral edema ICD Codes: R60.9 - Edema, unspecified SNOMED: 759350462 (4) Cellulitis of groin, left ICD Codes: L03.314 - Cellulitis of groin SNOMED: 44876964 (5) Cellulitis ICD Codes: L03.90 - Cellulitis, unspecified SNOMED: 400107802 (6) COPD (chronic obstructive pulmonary disease) ICD Codes: J44.9 - Chronic obstructive pulmonary disease, unspecified SNOMED: 74257012 (7) Morbid obesity ICD Codes: E66.01 - Morbid (severe) obesity due to excess calories SNOMED: 147554722 (8) Abdominal pannus ICD Codes: E65 - Localized adiposity SNOMED: 7519169801960 (9) Abdominal wall cellulitis ICD Codes: L03.311 - Cellulitis of abdominal wall SNOMED: 20365468 (10) UTI (urinary tract infection) ICD Codes: N39.0 - Urinary tract infection, site not specified SNOMED: 55372708 Status: stable, progressing Assessment/Plan: o2 pulm tx abx pt diet cbc bmp am aru eval Subjective Constitutional: Reports: weakness Allergies: Coded Allergies: ASPIRIN (Verified Allergy, Unknown, 07/14/18) KETOROLAC (Verified Allergy, Unknown, 07/14/18) PENICILLINS (Verified Allergy, Unknown, 12/23/18) tolerated Ancef on 08/2018 All Systems: reviewed and negative except above Subjective o2nc sleepy calm Objective Last 24 Hour Vital Signs Date Time Temp Pulse Resp B/P (MAP) Pulse Ox O2 Delivery O2 Flow Rate FiO2 02/08/19 08:47 82 120/63 02/08/19 08:19 97 Nasal Cannula 2.0 28 02/08/19 08:00 97.9 82 19 120/63 (82) 97 02/08/19 04:35 98.6 78 19 119/75 (90) 02/08/19 00:00 98.6 78 19 123/73 (90) 02/07/19 21:42 98.5 93 20 62/ 7/14/19 21:40 Nasal Cannula 2.0 02/07/19 21:11 98.4 02/07/19 20:54 98 Nasal Cannula 2.0 28 02/07/19 20:00 98.5 87 20 123/62 (82) 02/07/19 15:57 98.4 79 19 131/64 (86) 98 02/07/19 12:00 98.3 79 20 140/102 (115) 96 Intake and Output 02/07/19 02/08/19 19:00 07:00 Intake Total 1150.000 ml Output Total 1115 ml 608 ml Balance 35.000 ml -608 ml IV Total 550.000 ml Other 600 ml Output Urine Total 1100 ml 600 ml Drainage Total 15 ml 8 ml Laboratory Tests 02/08/19 08:10: White Blood Count 7.8, Red Blood Count 2.79L, Hemoglobin 8.3L, Hematocrit 25.9L , Mean Corpuscular Volume 93, Mean Corpuscular Hemoglobin 29.9, Mean Corpuscular Hemoglobin Concent 32.2, Red Cell Distribution Width 13.2, Platelet Count 335, Mean Platelet Volume 4.2L, Neutrophils (%) (Auto) 63.4, Lymphocytes ( %) (Auto) 22.9, Monocytes (%) (Auto) 6.6, Eosinophils (%) (Auto) 6.2H, Basophils (%) (Auto) 0.9, Sodium Level 140, Potassium Level 4.0, Chloride Level 103, Carbon Dioxide Level 37H, Anion Gap 1L, Blood Urea Nitrogen 12, Creatinine 0.8, Estimat Glomerular Filtration Rate > 60, Glucose Level 128H, Calcium Level 8.8, Vancomycin Level Trough 20.4H Height (Feet): 6 Height (Inches): 0.00 Weight (Pounds): 418 General Appearance: lethargic EENT: normal ENT inspection Neck: non-tender Cardiovascular: normal peripheral pulses, normal rate, regular rhythm Respiratory/Chest: chest wall non-tender, lungs clear, normal breath sounds Abdomen: soft, hypoactive bowel sounds, distended Extremities: normal inspection Edema: 1+ Arm (L), 1+ Arm (R), 1+ Leg (L), 1+ Leg (R), 1+ Pedal (L), 1+ Pedal ( R), 1+ Generalized Edema: trace edema Neurologic: responsive, motor weakness Skin: normal pigmentation, warm/dry Objective abd dressing c&d Ernesto Nicole DO Feb 08, 2019 09:12
--- NOTE | 2019-02-08 10:15 | Operative Note - Dictated ---
DATE OF OPERATION: 02/01/2019 SURGEON: Reggie Roberts M.D. CO-SURGEON: Gt Fernandez M.D. ANESTHESIOLOGIST: Jose Saenz M.D. PREOPERATIVE DIAGNOSIS: Panniculus with panniculitis. POSTOPERATIVE DIAGNOSIS: Panniculus with panniculitis. OPERATION PERFORMED: Panniculectomy. ANESTHESIA: General endotracheal anesthesia. OPERATIVE INDICATIONS: This is a 53-year-old male, who is super-morbidly obese. He was originally over 800 pounds, but has lost a considerable amount of weight. Current weight of approximately 425-450 pounds. This has resulted in a very thick and lymphedematous panniculus, which leads to cellulitis causing an occasional hospitalization. He also has skin breakdown not just in his panniculus, but in his groin area as well as scrotal edema. The decision after discussing with the patient and his primary care physician was that due to his recurrent hospital admissions for panniculitis and the morbidity associated with this to perform a panniculectomy in order for him to have the panniculitis effectively treated as well as peeling of his panniculus-related wounds and furthermore to allow him to exercise more easily leading to further weight loss. Of note, his weight loss was not due to surgery, but due to diet and exercise. The patient was explained the risks, which are significant and he fully understands all the risks, which included but not limited to bleeding, infection, blood clot, pulmonary embolism, incision dehiscence, failure to come off the anesthesia, anesthetic complications, damage to deeper vital structures as well as . He was well aware and understood these risks and was willing to proceed with informed consent and has also consented for packed red blood cell transfusion, which is very likely during these surgeries. Once he was medically cleared, he was scheduled for elective surgery. OPERATIVE PROCEDURE: The patient was seen in the preoperative area and the operative plan was again discussed and agreed upon. Operative markings were made. He was then taken back to the operating room and placed on the operating table in supine position. Once all pressure points were padded, general anesthesia was induced and his chest and abdomen were prepped and draped in the usual sterile fashion. SCD was placed on the right lower extremity and Raleigh Hugger was placed over his chest. A total of 210 mL of 1% lidocaine with 1:100,000 epinephrine was injected along the incisions. After waiting for appropriate amount of time, #10 blade was used to make the inferior incision. There was a lot of lymphedematous fluid and some large veins that were encountered. Dissection proceeded down with caution using electrocautery. The veins that were encountered were either ligated with 2-0 silk ties or clipped with vascular clips. Once dissection proceeded down to the abdominal wall, the dissection proceeded cephalad along the abdominal wall to the umbilicus. Due to the sheer weight of the specimen, it was transected vertically in the infraumbilical midline to allow further mobilization cephalad. Once this was done tentative, the umbilicus was encountered and was transected at its base. There was no true hernia in the abdominal wall. At this point, the elevation of the flap was first proceeded superiorly and once the skin that could be excised safely was marked, a #10 blade was used to incise this along the markings. Electrocautery then proceeded to remove the skin and subcutaneous tissue and the skin flaps which were in 2 halves were removed. The suprapubic mons, which was ptotic, was elevated and pexied to the rectus abdominis using 2-0 PDS sutures. Once this was completed, the area was irrigated and hemostasis was carefully obtained. Three 19-Peruvian fluted MARQUEZ drains were then placed, one in each half of the abdomen and then one in the suprapubic mons area. These were secured to the skin with 2-0 nylon. At this point, the closure was begun. This was done with combination of 2-0 PDS in the deep Inna's layer specifically in the central third. This was followed by 2-0 Monocryl in the deep dermis. The skin itself was closed with a combination of lawrence and 2-0 nylon in a horizontal mattress fashion. The dressings were then applied and the patient was then taken to the intensive care unit intubated. COMPLICATIONS: No complications. ESTIMATED BLOOD LOSS: 1 liter. IV FLUIDS: 1 liter of crystalloid, 250 mL of Hespan, 250 mL of albumin, and 2 units of packed red blood cells. SPECIMEN: The total weight of the specimen was 32 pounds, but of note, this was dry weight as he has significant amount of lymphedematous fluid leaking onto the floor. CONDITION: The patient was stable. Reggie Roberts M.D. DR: TOR JOB#: [id number] CC:
--- NOTE | 2019-02-08 11:59 | Surgery Progress Note ---
Surgery Progress Note Subjective Additional Comments no acute events doing well drains serosang wound clean dressings changed not ready to ambulate. cont current treatment Objective Last 24 Hour Vital Signs Date Time Temp Pulse Resp B/P (MAP) Pulse Ox O2 Delivery O2 Flow Rate FiO2 02/08/19 09:15 98.6 02/08/19 09:00 Nasal Cannula 2.0 02/08/19 08:47 82 120/63 02/08/19 08:19 97 Nasal Cannula 2.0 28 02/08/19 08:00 97.9 82 19 120/63 (82) 97 02/08/19 04:35 98.6 78 19 119/75 (90) 02/08/19 00:00 98.6 78 19 123/73 (90) 02/07/19 21:42 98.5 93 20 62/ 02/07/19 21:40 Nasal Cannula 2.0 02/07/19 20:54 98 Nasal Cannula 2.0 28 02/07/19 20:00 98.5 87 20 123/62 (82) 02/07/19 15:57 98.4 79 19 131/64 (86) 98 02/07/19 12:00 98.3 79 20 140/102 (115) 96 I&O Intake and Output 02/07/19 02/08/19 19:00 07:00 Intake Total 1150.000 ml Output Total 1115 ml 608 ml Balance 35.000 ml -608 ml IV Total 550.000 ml Other 600 ml Output Urine Total 1100 ml 600 ml Drainage Total 15 ml 8 ml Laboratory Tests Test 02/08/19 08:10 White Blood Count 7.8 K/UL (4.8-10.8) Red Blood Count 2.79 M/UL (4.70-6.10) L Hemoglobin 8.3 G/DL (14.2-18.0) L Hematocrit 25.9 % (42.0-52.0) L Mean Corpuscular Volume 93 FL (80-99) Mean Corpuscular Hemoglobin 29.9 PG (27.0-31.0) Mean Corpuscular Hemoglobin Concent 32.2 G/DL (32.0-36.0) Red Cell Distribution Width 13.2 % (11.6-14.8) Platelet Count 335 K/UL (150-450) Mean Platelet Volume 4.2 FL (6.5-10.1) L Neutrophils (%) (Auto) 63.4 % (45.0-75.0) Lymphocytes (%) (Auto) 22.9 % (20.0-45.0) Monocytes (%) (Auto) 6.6 % (1.0-10.0) Eosinophils (%) (Auto) 6.2 % (0.0-3.0) H Basophils (%) (Auto) 0.9 % (0.0-2.0) Sodium Level 140 MMOL/L (136-145) Potassium Level 4.0 MMOL/L (3.5-5.1) Chloride Level 103 MMOL/L (98-107) Carbon Dioxide Level 37 MMOL/L (21-32) H Anion Gap 1 mmol/L (5-15) L Blood Urea Nitrogen 12 mg/dL (7-18) Creatinine 0.8 MG/DL (0.55-1.30) Estimat Glomerular Filtration Rate > 60 mL/min (>60) Glucose Level 128 MG/DL (74-106) H Calcium Level 8.8 MG/DL (8.5-10.1) Vancomycin Level Trough 20.4 ug/mL (5.0-12.0) H Plan Problems: (1) Cellulitis of groin, left (2) Cellulitis Assessment & Plan: chronic cellulitis of pannus s/p panniculectomy now extubated and recovering pain controlled Doing well post op. Patient not to ambulate or lay flat as this would put too much tension on the incision. Ok to do PT in bed. dressings changed wound stable will monitor okay for diet -iv abx -drain care -keep lindsey in place dressing changes -AM labs will follow with recs (3) COPD (chronic obstructive pulmonary disease) (4) Morbid obesity (5) Lumbar spondylosis (6) Right heart failure (7) ADALBERTO (obstructive sleep apnea) (8) Abdominal pannus (9) Seizures (10) Cerebrovascular accident (11) Peripheral edema (12) Abdominal wall cellulitis (13) UTI (urinary tract infection) (14) Hyponatremia (15) Uncontrolled seizures (16) Knee osteomyelits, right Gt Fernandez Feb 08, 2019 11:59
[2019-02-08 12:00] VITALS: BP 113/58
--- NOTE | 2019-02-08 12:28 | Pulmonology Progress Note ---
Assessment/Plan Problems: (1) Abdominal pannus (2) COPD (chronic obstructive pulmonary disease) (3) ADALBERTO (obstructive sleep apnea) (4) Right heart failure (5) Lumbar spondylosis (6) Morbid obesity Assessment/Plan no fever or leukocytosis decrease Dilaudid to 2 mg needs to be on low calorie diet, increase Fentanyl patch to 100 labs in am symptomatic treatment dvt prophylaxis. Subjective ROS Limited/Unobtainable: No Allergies: Coded Allergies: ASPIRIN (Verified Allergy, Unknown, 07/14/18) KETOROLAC (Verified Allergy, Unknown, 07/14/18) PENICILLINS (Verified Allergy, Unknown, 12/23/18) tolerated Ancef on 08/2018 Objective Last 24 Hour Vital Signs Date Time Temp Pulse Resp B/P (MAP) Pulse Ox O2 Delivery O2 Flow Rate FiO2 02/08/19 12:03 98.6 02/08/19 12:00 98.4 83 19 113/58 (76) 95 02/08/19 09:00 Nasal Cannula 2.0 02/08/19 08:47 82 120/63 02/08/19 08:19 97 Nasal Cannula 2.0 28 02/08/19 08:00 97.9 82 19 120/63 (82) 97 02/08/19 04:35 98.6 78 19 119/75 (90) 02/08/19 00:00 98.6 78 19 123/73 (90) 02/07/19 21:42 98.5 93 20 62/ 02/07/19 21:40 Nasal Cannula 2.0 02/07/19 20:54 98 Nasal Cannula 2.0 28 02/07/19 20:00 98.5 87 20 123/62 (82) 02/07/19 15:57 98.4 79 19 131/64 (86) 98 Intake and Output 02/07/19 02/08/19 18:59 06:59 Intake Total 1150.000 ml Output Total 1115 ml 608 ml Balance 35.000 ml -608 ml IV Total 550.000 ml Other 600 ml Output Urine Total 1100 ml 600 ml Drainage Total 15 ml 8 ml Objective General Appearance: WD/WN HEENT: normocephalic Respiratory/Chest: chest wall non-tender,decreased breath sounds Cardiovascular: normal peripheral pulses, normal rate Abdomen: normal bowel sounds, soft, massive fat amount Genitourinary: swollen testicles, Extremities: extreme edema Laboratory Tests 02/08/19 08:10: White Blood Count 7.8, Red Blood Count 2.79L, Hemoglobin 8.3L, Hematocrit 25.9L , Mean Corpuscular Volume 93, Mean Corpuscular Hemoglobin 29.9, Mean Corpuscular Hemoglobin Concent 32.2, Red Cell Distribution Width 13.2, Platelet Count 335, Mean Platelet Volume 4.2L, Neutrophils (%) (Auto) 63.4, Lymphocytes ( %) (Auto) 22.9, Monocytes (%) (Auto) 6.6, Eosinophils (%) (Auto) 6.2H, Basophils (%) (Auto) 0.9, Sodium Level 140, Potassium Level 4.0, Chloride Level 103, Carbon Dioxide Level 37H, Anion Gap 1L, Blood Urea Nitrogen 12, Creatinine 0.8, Estimat Glomerular Filtration Rate > 60, Glucose Level 128H, Calcium Level 8.8, Vancomycin Level Trough 20.4H Current Medications Medications (Trade) Dose Ordered Sig/Luis Route PRN Reason Start Time Stop Time Status Last Admin Dose Admin Acetaminophen (Tylenol) 650 mg Q4H PRN ORAL T>100.5 02/06/19 12:30 03/08/19 12:24 Amlodipine Besylate (Norvasc) 5 mg DAILY ORAL 02/07/19 09:00 02/22/19 08:59 02/08/19 08:47 Chlorhexidine Gluconate (Ruby-Hex 2%) 1 applic DAILY@1999 TOPIC 02/06/19 20:00 02/26/19 19:59 02/07/19 20:35 Dextrose (Dextrose 50%) 25 ml Q30M PRN IV Hypoglycemia 02/06/19 12:30 02/21/19 10:59 Dextrose (Dextrose 50%) 50 ml Q30M PRN IV hypoglycemia 02/06/19 12:30 02/21/19 10:59 Duloxetine HCl (Cymbalta) 30 mg DAILY ORAL 02/07/19 09:00 02/22/19 08:59 02/08/19 08:47 Fentanyl (Duragesic) 1 patch Q72H TDERMAL 02/09/19 12:00 02/10/19 11:59 Hydromorphone HCl (Dilaudid) 4 mg Q3H PRN IV BREAKTHROUGH PAIN 02/06/19 12:27 02/13/19 12:26 02/08/19 11:33 Levetiracetam (Keppra) 1,000 mg Q8HR ORAL 02/06/19 14:00 02/21/19 13:59 02/08/19 05:26 Lorazepam (Ativan 2mg/ml 1ml) 2 mg Q4H PRN IV For Anxiety 02/06/19 12:28 02/13/19 12:27 Methadone HCl (Methadone HCl) 10 mg Q6H PRN ORAL For Pain 02/06/19 12:28 02/13/19 12:27 02/07/19 22:10 Miconazole Nitrate (Miconazole Nitrate) 1 applic Q12HR TOPIC 02/06/19 21:00 03/05/19 20:59 02/08/19 08:55 Miscellaneous Medication (fentaNYL Destruction) 1 ea Q72H MISC 02/09/19 12:00 03/08/19 11:59 Naloxone HCl (Narcan) 0.1 mg PRN IV Sedation scale 3 or 4 02/06/19 12:30 04/04/19 11:59 Ondansetron HCl (Zofran) 4 mg Q6H PRN IVP Nausea & Vomiting 02/06/19 12:28 03/08/19 12:27 Pantoprazole (Protonix) 40 mg DAILY IV 02/07/19 09:00 03/04/19 08:59 02/08/19 08:45 Vancomycin HCl (Vanco rx to dose) 1 ea DAILY PRN MISC Per rx protocol 02/07/19 09:00 03/05/19 11:59 Vancomycin HCl 1 gm/Dextrose 275 ml @ 183.708 mls/hr Q8HR@0100,0900,1700 IVPB 02/08/19 17:00 02/13/19 16:59 Bill Dixon MD Feb 08, 2019 12:28
[2019-02-08] MEDS ORDERED: Naloxone 0.4mg/ml Inj IV PRN (12:30)
--- NOTE | 2019-02-08 12:52 | NUR ---
NURSE NOTES: Abd dressing changed per MD order. lawrence intact. diet changed per MD. pt tolerating diet well. no N/V. will continue to monitor.
[2019-02-08] MEDS ORDERED: fentaNYL Destruction MISC SCH (13:00)
--- NOTE | 2019-02-08 13:30 | NUR ---
fentanyl patches applied on left and right shoulders per order. will continue to monitor.
--- NOTE | 2019-02-08 13:41 | Plastic Surgery Progress Note ---
Plastic Surgery-Progress Note Subjective Procedure Performed Panniculectomy Additional Comments One wk s/p panniculectomy. Doing well. Right lower MARQUEZ drain fell out yesterday. Passing gas and tolerating full liquids. Objective Last 24 Hour Vital Signs Date Time Temp Pulse Resp B/P (MAP) Pulse Ox O2 Delivery O2 Flow Rate FiO2 02/08/19 12:54 Nasal Cannula 2.0 02/08/19 12:03 98.6 02/08/19 12:00 98.4 83 19 113/58 (76) 95 02/08/19 09:00 Nasal Cannula 2.0 02/08/19 08:47 82 120/63 02/08/19 08:19 97 Nasal Cannula 2.0 28 02/08/19 08:00 97.9 82 19 120/63 (82) 97 02/08/19 04:35 98.6 78 19 119/75 (90) 02/08/19 00:00 98.6 78 19 123/73 (90) 02/07/19 21:42 98.5 93 20 62/ 02/07/19 21:40 Nasal Cannula 2.0 02/07/19 20:54 98 Nasal Cannula 2.0 28 02/07/19 20:00 98.5 87 20 123/62 (82) 02/07/19 15:57 98.4 79 19 131/64 (86) 98 I&O Intake and Output 02/07/19 02/08/19 18:59 06:59 Intake Total 1150.000 ml Output Total 1115 ml 608 ml Balance 35.000 ml -608 ml IV Total 550.000 ml Other 600 ml Output Urine Total 1100 ml 600 ml Drainage Total 15 ml 8 ml Dressing: dry Abdomen: soft Skin Exam: normal inspection - Incision is clean dry and uninfected. Skin flap healing well. JPs serous Laboratory Tests Test 02/08/19 08:10 White Blood Count 7.8 K/UL (4.8-10.8) Red Blood Count 2.79 M/UL (4.70-6.10) L Hemoglobin 8.3 G/DL (14.2-18.0) L Hematocrit 25.9 % (42.0-52.0) L Mean Corpuscular Volume 93 FL (80-99) Mean Corpuscular Hemoglobin 29.9 PG (27.0-31.0) Mean Corpuscular Hemoglobin Concent 32.2 G/DL (32.0-36.0) Red Cell Distribution Width 13.2 % (11.6-14.8) Platelet Count 335 K/UL (150-450) Mean Platelet Volume 4.2 FL (6.5-10.1) L Neutrophils (%) (Auto) 63.4 % (45.0-75.0) Lymphocytes (%) (Auto) 22.9 % (20.0-45.0) Monocytes (%) (Auto) 6.6 % (1.0-10.0) Eosinophils (%) (Auto) 6.2 % (0.0-3.0) H Basophils (%) (Auto) 0.9 % (0.0-2.0) Sodium Level 140 MMOL/L (136-145) Potassium Level 4.0 MMOL/L (3.5-5.1) Chloride Level 103 MMOL/L (98-107) Carbon Dioxide Level 37 MMOL/L (21-32) H Anion Gap 1 mmol/L (5-15) L Blood Urea Nitrogen 12 mg/dL (7-18) Creatinine 0.8 MG/DL (0.55-1.30) Estimat Glomerular Filtration Rate > 60 mL/min (>60) Glucose Level 128 MG/DL (74-106) H Calcium Level 8.8 MG/DL (8.5-10.1) Vancomycin Level Trough 20.4 ug/mL (5.0-12.0) H Plan Additional Comments Doing well at 1 week. Need to decrease IV pain meds. May get out of bed on . Continue PT in bed until then. Continue dressing changes as ordered. Reggie Roberts MD Feb 08, 2019 13:41
--- NOTE | 2019-02-08 13:54 | NUR ---
OUTSIDE CUTTER NOTES [facility] DENIED PATIENT THEY DON'T ACCEPT PATIENTS INSURANCE.
--- NOTE | 2019-02-08 13:55 | NUR ---
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 CELLULITIS VS: BP 113/58, P 83, T 98.6, RR 19, SpO2 95 on 2.0 NC RBC 2.79, H&H 8.3/25.9, VANCOMYCIN TROUGH 20.4 IS:DILAUDID 4mg IV VANCOMYCIN 275ml IVPB MICONAZOLE NITRATE TOPICAL NORVASC 5mg CYMBALTA 30mg PROTONIX 40mg IV KEPPRA 1,000mg MED/SURG STATUS
[2019-02-08 16:00] VITALS: BP 113/64
--- NOTE | 2019-02-08 16:00 | Progress Note ---
DATE: 02/08/2019 SUBJECTIVE: This is a 53-year-old male patient with cellulitis and some confusion, some disorganized thought process, and decline in cognition below his baseline. He has got a lot of anxiety and most of the anxiety and depression worsened by stress of his medical illness. That is why, his attending physician has requested daily psychiatric consultation. This patient is very confused, disorganized, mostly anxious. MENTAL STATUS EXAMINATION: This is a 53-year-old male. Appearance is disheveled. Attitude, irritable and agitated. Affect, guarded and restricted. Intellect poor. Mood, depressed and anxious. Motor activity, psychomotor agitation. Attention span is poor. Orientation x2. Speech is low volume and slurred. Thought process disorganized and illogical. Insight and judgment is poor. DIAGNOSIS: Paranoid schizophrenia with acute exacerbation. PLAN: Plan for this patient is to treat this patient with a medication regimen. Continue with Cymbalta 30 mg a day. Provided him with 20 minutes of reality-based supportive psychotherapy . Chart reviewed. Discussed with staff. A 20 minutes of cognitive behavioral therapy provided to help him identify his automatic negative thoughts and help him convert those negative thoughts to more positive thoughts, to reduce depression, anxiety, and mood lability. Seen and assessed in his room. Laney Mcghee M.D. DR: GUTIERREZ JOB#: [id number] CC:
[2019-02-08] MEDS ORDERED: Vancomycin 1gm/D5W 275ml IVPB SCH ×2 (17:00)
--- NOTE | 2019-02-08 18:25 | Cardiac Electrophysiology PN ---
Assessment/Plan Assessment/Plan 1. Hypertension. On amlodipine 5 daily . EF 60% 2. Severe bilateral lower extremity edema and cellulitis. On abx per Dr. Patterson. 3. Abdominal pannus. S/P Resection of pannus 02/01/19 Has t MARQUEZ drains 4. COPD and ADALBERTO. 5. S/P Resp failure, extubated 6. Right heart failure. 7. Lumbar spondylosis. 8. Morbid obesity. Subjective Subjective No CP or SOB. Now has 2 abdominal drains. No events Objective Last 24 Hour Vital Signs Date Time Temp Pulse Resp B/P (MAP) Pulse Ox O2 Delivery O2 Flow Rate FiO2 02/08/19 16:42 98.6 02/08/19 16:00 98.1 72 18 113/64 (80) 95 02/08/19 13:56 98.6 02/08/19 12:54 Nasal Cannula 2.0 02/08/19 12:03 98.6 02/08/19 12:00 98.4 83 19 113/58 (76) 95 02/08/19 09:00 Nasal Cannula 2.0 02/08/19 08:47 82 120/63 02/08/19 08:19 97 Nasal Cannula 2.0 28 02/08/19 08:00 97.9 82 19 120/63 (82) 97 02/08/19 04:35 98.6 78 19 119/75 (90) 02/08/19 00:00 98.6 78 19 123/73 (90) 02/07/19 21:42 98.5 93 20 62/ 02/07/19 21:40 Nasal Cannula 2.0 02/07/19 20:54 98 Nasal Cannula 2.0 28 02/07/19 20:00 98.5 87 20 123/62 (82) Intake and Output 02/07/19 02/08/19 18:59 06:59 Intake Total 1150.000 ml Output Total 1115 ml 608 ml Balance 35.000 ml -608 ml IV Total 550.000 ml Other 600 ml Output Urine Total 1100 ml 600 ml Drainage Total 15 ml 8 ml Laboratory Tests Test 02/08/19 08:10 White Blood Count 7.8 K/UL (4.8-10.8) Red Blood Count 2.79 M/UL (4.70-6.10) L Hemoglobin 8.3 G/DL (14.2-18.0) L Hematocrit 25.9 % (42.0-52.0) L Mean Corpuscular Volume 93 FL (80-99) Mean Corpuscular Hemoglobin 29.9 PG (27.0-31.0) Mean Corpuscular Hemoglobin Concent 32.2 G/DL (32.0-36.0) Red Cell Distribution Width 13.2 % (11.6-14.8) Platelet Count 335 K/UL (150-450) Mean Platelet Volume 4.2 FL (6.5-10.1) L Neutrophils (%) (Auto) 63.4 % (45.0-75.0) Lymphocytes (%) (Auto) 22.9 % (20.0-45.0) Monocytes (%) (Auto) 6.6 % (1.0-10.0) Eosinophils (%) (Auto) 6.2 % (0.0-3.0) H Basophils (%) (Auto) 0.9 % (0.0-2.0) Sodium Level 140 MMOL/L (136-145) Potassium Level 4.0 MMOL/L (3.5-5.1) Chloride Level 103 MMOL/L (98-107) Carbon Dioxide Level 37 MMOL/L (21-32) H Anion Gap 1 mmol/L (5-15) L Blood Urea Nitrogen 12 mg/dL (7-18) Creatinine 0.8 MG/DL (0.55-1.30) Estimat Glomerular Filtration Rate > 60 mL/min (>60) Glucose Level 128 MG/DL (74-106) H Calcium Level 8.8 MG/DL (8.5-10.1) Vancomycin Level Trough 20.4 ug/mL (5.0-12.0) H Objective HEAD AND NECK: No JVD. LUNGS: Clear. CARDIOVASCULAR: Regular S1 and S2 with no gallop or murmur. ABDOMEN: Very swollen, erythematous, and enlarged scrotum. S/P abdominal surgery with drains EXTREMITIES: 2+ pitting edema and cellulitis of the legs. Carlos Yee MD Feb 08, 2019 18:25
--- NOTE | 2019-02-08 18:34 | Infectious Diseases Prog Note ---
Assessment/Plan Assessment/Plan Assessment: 02/01 SP Panniculectomy VDRF (post-op)- s/p extubation 02/02 Low grade fever x1 Mild leukocytosis- likely post op- resolved -02/01 CXR: Mild interstitial congestive changes persist, stable sp cx normal resp wesley (prelim) R groin swelling and pain- 2ry from Volume overload Sandy intertrigo; improving B/l Leg cellulitis and panniculitis - in the setting of chronic venous stasis, s /p Rx Active infectious cellulitis essentially resolved. Now he has chronic venous stasis and neuropathic pain with poorly healing wounds. Alot off this is due to the severe swelling in his feet but also he is poorly compliant with wound care instructions. Afebrile No leukocytosis Recent seizure episode -had L side weakness and spasticity CVA HTN bipolar disorder w/ psychotic features tobacco abuse anxiety disorder chronic pain CHF seizure disorder COPD morbid obesity Dm2 HTN SNF resident Plan: -D/c periop IV Vancomycin #8 -Cont Miconazole topical - Needs wound care for healing. -02/04 SP Aztreonam #4 -01/26 SP Fluconzole #5 - 01/07/19 SP IV Dapto d# 14 - 01/06/19 S/P Levofloxacin #7 - 12/25 sp Bactrim #/ and add IV Ancef #3/ for cellulitis - Monitor CBC/CMP, temperatures - aspiration precautions - wound care per hospital protocol -plastic sx, Gen sx f/u -f/ucx Subjective Allergies: Coded Allergies: ASPIRIN (Verified Allergy, Unknown, 07/14/18) KETOROLAC (Verified Allergy, Unknown, 07/14/18) PENICILLINS (Verified Allergy, Unknown, 12/23/18) tolerated Ancef on 08/2018 Subjective afebrile no leukocytosis Bcx NTD Objective Vital Signs Last 24 Hour Vital Signs Date Time Temp Pulse Resp B/P (MAP) Pulse Ox O2 Delivery O2 Flow Rate FiO2 02/08/19 16:42 98.6 02/08/19 16:00 98.1 72 18 113/64 (80) 95 02/08/19 13:56 98.6 02/08/19 12:54 Nasal Cannula 2.0 02/08/19 12:03 98.6 02/08/19 12:00 98.4 83 19 113/58 (76) 95 02/08/19 09:00 Nasal Cannula 2.0 02/08/19 08:47 82 120/63 02/08/19 08:19 97 Nasal Cannula 2.0 28 02/08/19 08:00 97.9 82 19 120/63 (82) 97 02/08/19 04:35 98.6 78 19 119/75 (90) 02/08/19 00:00 98.6 78 19 123/73 (90) 02/07/19 21:42 98.5 93 20 62/ 02/07/19 21:40 Nasal Cannula 2.0 02/07/19 20:54 98 Nasal Cannula 2.0 28 02/07/19 20:00 98.5 87 20 123/62 (82) Height (Feet): 6 Height (Inches): 0.00 Weight (Pounds): 418 Objective General Appearance: alert, moderate distress, obese Head: atraumatic Eyes: bilateral eye normal inspection ENT: normal ENT inspection, hearing grossly normal, normal voice Neck: normal inspection, full range of motion, supple, no bony tend Respiratory: normal inspection, lungs clear, normal breath sounds, no respiratory distress, no retraction, no wheezing Cardiovascular #1: regular rate, rhythm Gastrointestinal: normal inspection, normal bowel sounds, soft, no guarding, no hernia, other - Left lower abdominal area Genitourinary: other - Swollen groin edematous erythematous enlarged scrotum Musculoskeletal: normal inspection, back normal, normal range of motion Neurologic: normal inspection, alert, responsive, speech normal Psychiatric: depressed affect, anxious Skin: normal inspection, normal color, no rash Laboratory Tests Test 02/08/19 08:10 White Blood Count 7.8 K/UL (4.8-10.8) Red Blood Count 2.79 M/UL (4.70-6.10) L Hemoglobin 8.3 G/DL (14.2-18.0) L Hematocrit 25.9 % (42.0-52.0) L Mean Corpuscular Volume 93 FL (80-99) Mean Corpuscular Hemoglobin 29.9 PG (27.0-31.0) Mean Corpuscular Hemoglobin Concent 32.2 G/DL (32.0-36.0) Red Cell Distribution Width 13.2 % (11.6-14.8) Platelet Count 335 K/UL (150-450) Mean Platelet Volume 4.2 FL (6.5-10.1) L Neutrophils (%) (Auto) 63.4 % (45.0-75.0) Lymphocytes (%) (Auto) 22.9 % (20.0-45.0) Monocytes (%) (Auto) 6.6 % (1.0-10.0) Eosinophils (%) (Auto) 6.2 % (0.0-3.0) H Basophils (%) (Auto) 0.9 % (0.0-2.0) Sodium Level 140 MMOL/L (136-145) Potassium Level 4.0 MMOL/L (3.5-5.1) Chloride Level 103 MMOL/L (98-107) Carbon Dioxide Level 37 MMOL/L (21-32) H Anion Gap 1 mmol/L (5-15) L Blood Urea Nitrogen 12 mg/dL (7-18) Creatinine 0.8 MG/DL (0.55-1.30) Estimat Glomerular Filtration Rate > 60 mL/min (>60) Glucose Level 128 MG/DL (74-106) H Calcium Level 8.8 MG/DL (8.5-10.1) Vancomycin Level Trough 20.4 ug/mL (5.0-12.0) H Current Medications Medications (Trade) Dose Ordered Sig/Luis Route PRN Reason Start Time Stop Time Status Last Admin Dose Admin Acetaminophen (Tylenol) 650 mg Q4H PRN ORAL T>100.5 02/06/19 12:30 03/08/19 12:24 Amlodipine Besylate (Norvasc) 5 mg DAILY ORAL 02/07/19 09:00 02/22/19 08:59 02/08/19 08:47 Chlorhexidine Gluconate (Ruby-Hex 2%) 1 applic DAILY@1999 TOPIC 02/06/19 20:00 02/26/19 19:59 02/07/19 20:35 Dextrose (Dextrose 50%) 25 ml Q30M PRN IV Hypoglycemia 02/06/19 12:30 02/21/19 10:59 Dextrose (Dextrose 50%) 50 ml Q30M PRN IV hypoglycemia 02/06/19 12:30 02/21/19 10:59 Duloxetine HCl (Cymbalta) 30 mg DAILY ORAL 02/07/19 09:00 02/22/19 08:59 02/08/19 08:47 Fentanyl (Duragesic) 2 patch Q72H TDERMAL 02/08/19 13:30 02/15/19 13:29 02/08/19 13:26 Hydromorphone HCl (Dilaudid) 2 mg Q3H PRN IV SEVERE BREAKTHRU PAIN (7-10) 02/08/19 12:27 02/13/19 12:26 02/08/19 16:12 Levetiracetam (Keppra) 1,000 mg Q8HR ORAL 02/06/19 14:00 02/21/19 13:59 02/08/19 13:21 Lorazepam (Ativan 2mg/ml 1ml) 2 mg Q4H PRN IV For Anxiety 02/06/19 12:28 02/13/19 12:27 Methadone HCl (Methadone HCl) 10 mg Q6H PRN ORAL MODERATE BREAKTHROUGH PAIN 02/08/19 12:45 02/13/19 12:27 02/08/19 13:20 Miconazole Nitrate (Miconazole Nitrate) 1 applic Q12HR TOPIC 02/06/19 21:00 03/05/19 20:59 02/08/19 08:55 Miscellaneous Medication (fentaNYL Destruction) 2 ea Q72H MISC 02/11/19 13:30 03/13/19 13:29 Naloxone HCl (Narcan) 0.1 mg PRN IV Sedation scale 3 or 4 02/06/19 12:30 04/04/19 11:59 Ondansetron HCl (Zofran) 4 mg Q6H PRN IVP Nausea & Vomiting 02/06/19 12:28 03/08/19 12:27 Pantoprazole (Protonix) 40 mg DAILY IV 02/07/19 09:00 03/04/19 08:59 02/08/19 08:45 Vancomycin HCl (Vanco rx to dose) 1 ea DAILY PRN MISC Per rx protocol 02/07/19 09:00 03/05/19 11:59 Vancomycin HCl 1 gm/Dextrose 275 ml @ 183.708 mls/hr Q8HR@0100,0900,1700 IVPB 02/08/19 17:00 02/13/19 16:59 02/08/19 17:02 Alexa Patterson M.D. Feb 08, 2019 18:34
--- NOTE | 2019-02-08 19:35 | NUR ---
NURSE NOTES: Received report from MICAELA Gastelum. Patient is in bed, awake and alert x 4. No signs of respiratory distress. Bed in lowest position with side rails up. Patient refuses side rail padding for seizure precaution. SCDs are on. LARRY PICC line is intact. Abdominal dressing is dry and intact. MARQUEZ drains are intact with a small amount of drainage. Pires catheter intact. Will continue to monitor the patient.
[2019-02-08 20:00] VITALS: BP 120/60
[2019-02-08] MEDS: Dyna-Hex 2% Top Sol 2oz TOPIC SCH (20:00)
[2019-02-09] VITALS: BP 124/67
[2019-02-09 04:00] VITALS: BP 124/68
--- NOTE | 2019-02-09 05:30 | NUR ---
NURSE NOTES: Changed PICC line dressing
[2019-02-09] MEDS: levETIRAcetam 500mg/5ml Liquid ORAL SCH ×3 (05:48→21:15)
--- NOTE | 2019-02-09 07:00 | Progress Note ---
DATE: 02/09/2019 SUBJECTIVE: This is a 53-year-old male patient with cellulitis. He has got some confusion, some disorganized thought process, and he has decline in cognition below his baseline, high levels of anxiety secondary to cellulitis and depression as well. MENTAL STATUS EXAMINATION: This is a 53-year-old male. Appearance is disheveled. Attitude, irritable and agitated. Affect, restricted. Intellect poor. Mood depressed and anxious. Motor activity, psychomotor agitation. Attention span is poor. Orientation x2. Speech is pressured. Thought process disorganized and illogical. Insight and judgment is poor. DIAGNOSIS: Major depressive disorder, mild recurrent. PLAN: Treat him with Cymbalta 30 mg daily. Provided with 20 minutes of cognitive behavioral therapy to help him identify his automatic negative thoughts and help him convert those negative thoughts to more positive thoughts to reduce depression, anxiety, and mood lability. Chart reviewed. Discussed with staff. Seen and assessed in his room. Laney Mcghee M.D. DR: Doretha JOB#: [id number] CC:
--- NOTE | 2019-02-09 07:56 | NUR ---
HAND-OFF: Report given to MICAELA Burkett.
--- NOTE | 2019-02-09 07:57 | NUR ---
NURSE NOTES: Patient awake alert x4, on nasal cannula 2Liter, no sign of distress and shortness of breath; no sign of chest pain; PICC line double lumen of the Left Upper Arm, dressing dry and intact; MARQUEZ on Left and Right side; Pires in place drains well; side rails up x2, patient refused side rails to be padded for seizure percussion; breaks engaged, call light within reach; will keep monitoring.
[2019-02-09 08:00] VITALS: BP 122/70
[2019-02-09 08:31] LABS: BASOPHILS % (AUTO) 0.4 % (0.0-2.0); EOSINOPHILS % (AUTO) 5.9 % (0.0-3.0); HEMATOCRIT 25.2 % (42.0-52.0); HEMOGLOBIN 8.1 G/DL (14.2-18.0); LYMPHOCYTES % (AUTO) 20.8 % (20.0-45.0); MEAN CORPUSCULAR VOLUME 94 FL (80-99); MONOCYTES % (AUTO) 6.3 % (1.0-10.0); NEUTROPHILS % (AUTO) 66.5 % (45.0-75.0); PLATELET COUNT 311 K/UL (150-450); RED BLOOD COUNT 2.66 M/UL (4.70-6.10); RED CELL DISTRIBUTION WIDTH 13.8 % (11.6-14.8); WHITE BLOOD COUNT 8.2 K/UL (4.8-10.8)
[2019-02-09] MEDS: DULoxetine 30mg cap ORAL SCH (08:31)
[2019-02-09] MEDS: Pantoprazole Inj IV SCH (08:31)
[2019-02-09] MEDS: Miconazole 2% Cream 30gm TOPIC SCH ×2 (08:32→21:16)
[2019-02-09 08:48] LABS: ANION GAP 1 mmol/L (5-15); BLOOD UREA NITROGEN 12 mg/dL (7-18); CALCIUM 8.8 MG/DL (8.5-10.1); CARBON DIOXIDE 36 MMOL/L (21-32); CHLORIDE 104 MMOL/L (98-107); POTASSIUM 3.9 MMOL/L (3.5-5.1); SODIUM 141 MMOL/L (136-145)
[2019-02-09 12:00] VITALS: BP 136/73
[2019-02-09] MEDS ORDERED: fentaNYL Destruction MISC SCH (12:00)
--- NOTE | 2019-02-09 12:43 | Cardiac Electrophysiology PN ---
Assessment/Plan Assessment/Plan 1. Hypertension. On amlodipine 5 daily . EF 60% 2. Severe bilateral lower extremity edema and cellulitis. On abx per Dr. Patterson. 3. Abdominal pannus. S/P Resection of pannus 02/01/19 Has 2 MARQUEZ drains with minimal drainage 4. COPD and ADALBERTO. 5. S/P Resp failure, extubated 6. Right heart failure. 7. Lumbar spondylosis. 8. Morbid obesity. Subjective Subjective No CP or SOB. 2 abdominal drains draining 20cc on right and 7cc on left overnight. No events Objective Last 24 Hour Vital Signs Date Time Temp Pulse Resp B/P (MAP) Pulse Ox O2 Delivery O2 Flow Rate FiO2 02/09/19 12:15 97.0 02/09/19 12:00 97.7 74 20 136/73 (94) 97 02/09/19 09:00 Nasal Cannula 2.0 02/09/19 08:31 78 122/70 02/09/19 08:00 97.0 78 19 122/70 (87) 97 02/09/19 04:00 99.0 71 24 124/68 (86) 96 02/09/19 00:00 98.4 71 24 124/67 (86) 99 02/08/19 21:00 Nasal Cannula 2.0 02/08/19 20:53 96 Nasal Cannula 2.0 28 02/08/19 20:00 98.7 73 24 120/60 (80) 98 02/08/19 16:00 98.1 72 18 113/64 (80) 95 02/08/19 13:56 98.6 02/08/19 12:54 Nasal Cannula 2.0 Intake and Output 02/08/19 02/09/19 19:00 07:00 Intake Total 600 ml Output Total 10 ml 1000 ml Balance -10 ml -400 ml Other 600 ml Output Urine Total 1000 ml Drainage Total 10 ml Laboratory Tests Test 02/09/19 08:15 White Blood Count 8.2 K/UL (4.8-10.8) Red Blood Count 2.66 M/UL (4.70-6.10) L Hemoglobin 8.1 G/DL (14.2-18.0) L Hematocrit 25.2 % (42.0-52.0) L Mean Corpuscular Volume 94 FL (80-99) Mean Corpuscular Hemoglobin 30.3 PG (27.0-31.0) Mean Corpuscular Hemoglobin Concent 32.0 G/DL (32.0-36.0) Red Cell Distribution Width 13.8 % (11.6-14.8) Platelet Count 311 K/UL (150-450) Mean Platelet Volume 4.1 FL (6.5-10.1) L Neutrophils (%) (Auto) 66.5 % (45.0-75.0) Lymphocytes (%) (Auto) 20.8 % (20.0-45.0) Monocytes (%) (Auto) 6.3 % (1.0-10.0) Eosinophils (%) (Auto) 5.9 % (0.0-3.0) H Basophils (%) (Auto) 0.4 % (0.0-2.0) Sodium Level 141 MMOL/L (136-145) Potassium Level 3.9 MMOL/L (3.5-5.1) Chloride Level 104 MMOL/L (98-107) Carbon Dioxide Level 36 MMOL/L (21-32) H Anion Gap 1 mmol/L (5-15) L Blood Urea Nitrogen 12 mg/dL (7-18) Creatinine 1.0 MG/DL (0.55-1.30) Estimat Glomerular Filtration Rate > 60 mL/min (>60) Glucose Level 154 MG/DL (74-106) H Calcium Level 8.8 MG/DL (8.5-10.1) Objective HEAD AND NECK: No JVD. LUNGS: Clear. CARDIOVASCULAR: Regular S1 and S2 with no gallop or murmur. ABDOMEN: Very swollen, erythematous, and enlarged scrotum. S/P abdominal surgery with drains EXTREMITIES: 2+ pitting edema and cellulitis of the legs. Carlos Yee MD Feb 09, 2019 12:43
--- NOTE | 2019-02-09 13:43 | Pulmonology Progress Note ---
Assessment/Plan Problems: (1) Abdominal pannus (2) COPD (chronic obstructive pulmonary disease) (3) ADALBERTO (obstructive sleep apnea) (4) Right heart failure (5) Lumbar spondylosis (6) Morbid obesity Assessment/Plan no fever or leukocytosis decrease Dilaudid to 2 mg needs to be on low calorie diet, increase Fentanyl patch to 100 labs in am symptomatic treatment dvt prophylaxis. doing better Subjective ROS Limited/Unobtainable: No Constitutional: Reports: no symptoms HEENT: Repors: no symptoms Respiratory: Reports: no symptoms Allergies: Coded Allergies: ASPIRIN (Verified Allergy, Unknown, 07/14/18) KETOROLAC (Verified Allergy, Unknown, 07/14/18) PENICILLINS (Verified Allergy, Unknown, 12/23/18) tolerated Ancef on 08/2018 Objective Last 24 Hour Vital Signs Date Time Temp Pulse Resp B/P (MAP) Pulse Ox O2 Delivery O2 Flow Rate FiO2 02/09/19 12:15 97.0 02/09/19 12:00 97.7 74 20 136/73 (94) 97 02/09/19 09:00 Nasal Cannula 2.0 02/09/19 08:31 78 122/70 02/09/19 08:00 97.0 78 19 122/70 (87) 97 02/09/19 04:00 99.0 71 24 124/68 (86) 96 02/09/19 00:00 98.4 71 24 124/67 (86) 99 02/08/19 21:00 Nasal Cannula 2.0 02/08/19 20:53 96 Nasal Cannula 2.0 28 02/08/19 20:00 98.7 73 24 120/60 (80) 98 02/08/19 16:00 98.1 72 18 113/64 (80) 95 02/08/19 13:56 98.6 Intake and Output 02/08/19 02/09/19 19:00 07:00 Intake Total 600 ml Output Total 10 ml 1000 ml Balance -10 ml -400 ml Other 600 ml Output Urine Total 1000 ml Drainage Total 10 ml Objective General Appearance: WD/WN HEENT: normocephalic Respiratory/Chest: chest wall non-tender,decreased breath sounds Cardiovascular: normal peripheral pulses, normal rate Abdomen: normal bowel sounds, soft, massive fat amount Genitourinary: swollen testicles, Extremities: extreme edema Laboratory Tests 02/09/19 08:15: White Blood Count 8.2, Red Blood Count 2.66L, Hemoglobin 8.1L, Hematocrit 25.2L , Mean Corpuscular Volume 94, Mean Corpuscular Hemoglobin 30.3, Mean Corpuscular Hemoglobin Concent 32.0, Red Cell Distribution Width 13.8, Platelet Count 311, Mean Platelet Volume 4.1L, Neutrophils (%) (Auto) 66.5, Lymphocytes ( %) (Auto) 20.8, Monocytes (%) (Auto) 6.3, Eosinophils (%) (Auto) 5.9H, Basophils (%) (Auto) 0.4, Sodium Level 141, Potassium Level 3.9, Chloride Level 104, Carbon Dioxide Level 36H, Anion Gap 1L, Blood Urea Nitrogen 12, Creatinine 1.0, Estimat Glomerular Filtration Rate > 60, Glucose Level 154H, Calcium Level 8.8 Current Medications Medications (Trade) Dose Ordered Sig/Luis Route PRN Reason Start Time Stop Time Status Last Admin Dose Admin Acetaminophen (Tylenol) 650 mg Q4H PRN ORAL T>100.5 02/06/19 12:30 03/08/19 12:24 Amlodipine Besylate (Norvasc) 5 mg DAILY ORAL 02/07/19 09:00 02/22/19 08:59 02/09/19 08:31 Chlorhexidine Gluconate (Ruby-Hex 2%) 1 applic DAILY@1999 TOPIC 02/06/19 20:00 02/26/19 19:59 02/07/19 20:35 Dextrose (Dextrose 50%) 25 ml Q30M PRN IV Hypoglycemia 02/06/19 12:30 02/21/19 10:59 Dextrose (Dextrose 50%) 50 ml Q30M PRN IV hypoglycemia 02/06/19 12:30 02/21/19 10:59 Duloxetine HCl (Cymbalta) 30 mg DAILY ORAL 02/07/19 09:00 02/22/19 08:59 02/09/19 08:31 Fentanyl (Duragesic) 1 patch Q72H TDERMAL 02/11/19 13:30 02/18/19 13:29 Fentanyl (Duragesic) 2 patch Q72H TDERMAL 02/08/19 13:30 02/11/19 13:29 02/08/19 13:26 Hydromorphone HCl (Dilaudid) 2 mg Q3H PRN IV SEVERE BREAKTHRU PAIN (7-10) 02/08/19 12:27 02/13/19 12:26 02/09/19 11:45 Levetiracetam (Keppra) 1,000 mg Q8HR ORAL 02/06/19 14:00 02/21/19 13:59 02/09/19 13:24 Lorazepam (Ativan 2mg/ml 1ml) 2 mg Q4H PRN IV For Anxiety 02/06/19 12:28 02/13/19 12:27 Methadone HCl (Methadone HCl) 10 mg Q6H PRN ORAL MODERATE BREAKTHROUGH PAIN 02/08/19 12:45 02/13/19 12:27 02/08/19 22:33 Miconazole Nitrate (Miconazole Nitrate) 1 applic Q12HR TOPIC 02/06/19 21:00 03/05/19 20:59 02/09/19 08:32 Miscellaneous Medication (fentaNYL Destruction) 2 ea Q72H MISC 02/11/19 13:30 03/13/19 13:29 Naloxone HCl (Narcan) 0.1 mg PRN IV Sedation scale 3 or 4 02/06/19 12:30 04/04/19 11:59 Ondansetron HCl (Zofran) 4 mg Q6H PRN IVP Nausea & Vomiting 02/06/19 12:28 03/08/19 12:27 Pantoprazole (Protonix) 40 mg DAILY IV 02/07/19 09:00 03/04/19 08:59 02/09/19 08:31 Bill Dixon MD Feb 09, 2019 13:43
--- NOTE | 2019-02-09 14:22 | NUR ---
RD ASSESSMENT & RECOMMENDATIONS SEE CARE ACTIVITY FOR COMPLETE ASSESSMENT DAILY ESTIMATED NEEDS: Needs based on obesity, pulmonary, 107kg abw 15-20 kcals/kg 7337-0381 total kcals 1-1.5 g protein/kg 107-161 g total protein 15-25ml/kcal mL/kg 9924-1247 total fluid mLs NUTRITION DIAGNOSIS: Decreased sodium, fat, and calorie intake needs R/T cardiac h/o and morbid obesity as evidenced by h/o CHF, CVA, w/ BMI>50, @ 230% of [place] Body Weight CURRENT DIET:REGULAR PO DIET RECOMMENDATIONS: Advance diet per MD -> CARDIAC + CCHO LOW for calorie control ADDITIONAL RECOMMENDATIONS: * Calibrated bedscale wt for accurate CBW * Continue to attempt to educate pt on healthy wt loss -> attempted on 02/05 (too sleepy), 02/09 (not too receptive, became upset) * Rec diet change as above to help w/ wt loss . .
--- NOTE | 2019-02-09 14:29 | General Progress Note ---
Assessment/Plan Problem List: (1) Seizures ICD Codes: R56.9 - Unspecified convulsions SNOMED: 07194451 (2) Cerebrovascular accident ICD Codes: I63.9 - Cerebral infarction, unspecified SNOMED: 013548892 (3) Peripheral edema ICD Codes: R60.9 - Edema, unspecified SNOMED: 166085369 (4) Cellulitis of groin, left ICD Codes: L03.314 - Cellulitis of groin SNOMED: 66802938 (5) Cellulitis ICD Codes: L03.90 - Cellulitis, unspecified SNOMED: 814594667 (6) COPD (chronic obstructive pulmonary disease) ICD Codes: J44.9 - Chronic obstructive pulmonary disease, unspecified SNOMED: 53784363 (7) Morbid obesity ICD Codes: E66.01 - Morbid (severe) obesity due to excess calories SNOMED: 845171612 (8) Abdominal pannus ICD Codes: E65 - Localized adiposity SNOMED: 3453945780930 (9) Abdominal wall cellulitis ICD Codes: L03.311 - Cellulitis of abdominal wall SNOMED: 73594761 (10) UTI (urinary tract infection) ICD Codes: N39.0 - Urinary tract infection, site not specified SNOMED: 05708238 Status: stable, progressing Assessment/Plan: o2 pulm tx abx pt diet cbc bmp am dc plan snf Subjective Constitutional: Reports: weakness Allergies: Coded Allergies: ASPIRIN (Verified Allergy, Unknown, 07/14/18) KETOROLAC (Verified Allergy, Unknown, 07/14/18) PENICILLINS (Verified Allergy, Unknown, 12/23/18) tolerated Ancef on 08/2018 All Systems: reviewed and negative except above Subjective o2nc sleepy calm pos bm eating solids Objective Last 24 Hour Vital Signs Date Time Temp Pulse Resp B/P (MAP) Pulse Ox O2 Delivery O2 Flow Rate FiO2 02/09/19 12:15 97.0 02/09/19 12:00 97.7 74 20 136/73 (94) 97 02/09/19 09:00 Nasal Cannula 2.0 02/09/19 08:31 78 122/70 02/09/19 08:00 97.0 78 19 122/70 (87) 97 02/09/19 04:00 99.0 71 24 124/68 (86) 96 02/09/19 00:00 98.4 71 24 124/67 (86) 99 02/08/19 21:00 Nasal Cannula 2.0 02/08/19 20:53 96 Nasal Cannula 2.0 28 02/08/19 20:00 98.7 73 24 120/60 (80) 98 02/08/19 16:00 98.1 72 18 113/64 (80) 95 Intake and Output 02/08/19 02/09/19 19:00 07:00 Intake Total 600 ml Output Total 10 ml 1000 ml Balance -10 ml -400 ml Other 600 ml Output Urine Total 1000 ml Drainage Total 10 ml Laboratory Tests 02/09/19 08:15: White Blood Count 8.2, Red Blood Count 2.66L, Hemoglobin 8.1L, Hematocrit 25.2L , Mean Corpuscular Volume 94, Mean Corpuscular Hemoglobin 30.3, Mean Corpuscular Hemoglobin Concent 32.0, Red Cell Distribution Width 13.8, Platelet Count 311, Mean Platelet Volume 4.1L, Neutrophils (%) (Auto) 66.5, Lymphocytes ( %) (Auto) 20.8, Monocytes (%) (Auto) 6.3, Eosinophils (%) (Auto) 5.9H, Basophils (%) (Auto) 0.4, Sodium Level 141, Potassium Level 3.9, Chloride Level 104, Carbon Dioxide Level 36H, Anion Gap 1L, Blood Urea Nitrogen 12, Creatinine 1.0, Estimat Glomerular Filtration Rate > 60, Glucose Level 154H, Calcium Level 8.8 Height (Feet): 6 Height (Inches): 0.00 Weight (Pounds): 418 General Appearance: lethargic EENT: normal ENT inspection Neck: normal alignment Cardiovascular: normal peripheral pulses, normal rate, regular rhythm Respiratory/Chest: chest wall non-tender, lungs clear, normal breath sounds Abdomen: normal bowel sounds, non tender, soft Extremities: normal inspection Edema: 1+ Arm (L), 1+ Arm (R), 1+ Leg (L), 1+ Leg (R), 1+ Pedal (L), 1+ Pedal ( R), 1+ Generalized Edema: trace edema Neurologic: responsive, motor weakness Skin: normal pigmentation, warm/dry Objective abd dressing c&d Ernesto Nicole DO Feb 09, 2019 14:29
--- NOTE | 2019-02-09 15:53 | Surgery Progress Note ---
Surgery Progress Note Subjective Symptoms: improved Objective Last 24 Hour Vital Signs Date Time Temp Pulse Resp B/P (MAP) Pulse Ox O2 Delivery O2 Flow Rate FiO2 02/09/19 15:42 97.0 02/09/19 12:00 97.7 74 20 136/73 (94) 97 02/09/19 09:00 Nasal Cannula 2.0 02/09/19 08:31 78 122/70 02/09/19 08:00 97.0 78 19 122/70 (87) 97 02/09/19 04:00 99.0 71 24 124/68 (86) 96 02/09/19 00:00 98.4 71 24 124/67 (86) 99 02/08/19 21:00 Nasal Cannula 2.0 02/08/19 20:53 96 Nasal Cannula 2.0 28 02/08/19 20:00 98.7 73 24 120/60 (80) 98 02/08/19 16:00 98.1 72 18 113/64 (80) 95 I&O Intake and Output 02/08/19 02/09/19 19:00 07:00 Intake Total 600 ml Output Total 10 ml 1000 ml Balance -10 ml -400 ml Other 600 ml Output Urine Total 1000 ml Drainage Total 10 ml Dressing: saturated Wound: clean Drains: lisbet Cardiovascular: RSR Respiratory: clear Abdomen: soft, present bowel sounds, non-distended Extremities: edema, no tenderness, no cyanosis Laboratory Tests Test 02/09/19 08:15 White Blood Count 8.2 K/UL (4.8-10.8) Red Blood Count 2.66 M/UL (4.70-6.10) L Hemoglobin 8.1 G/DL (14.2-18.0) L Hematocrit 25.2 % (42.0-52.0) L Mean Corpuscular Volume 94 FL (80-99) Mean Corpuscular Hemoglobin 30.3 PG (27.0-31.0) Mean Corpuscular Hemoglobin Concent 32.0 G/DL (32.0-36.0) Red Cell Distribution Width 13.8 % (11.6-14.8) Platelet Count 311 K/UL (150-450) Mean Platelet Volume 4.1 FL (6.5-10.1) L Neutrophils (%) (Auto) 66.5 % (45.0-75.0) Lymphocytes (%) (Auto) 20.8 % (20.0-45.0) Monocytes (%) (Auto) 6.3 % (1.0-10.0) Eosinophils (%) (Auto) 5.9 % (0.0-3.0) H Basophils (%) (Auto) 0.4 % (0.0-2.0) Sodium Level 141 MMOL/L (136-145) Potassium Level 3.9 MMOL/L (3.5-5.1) Chloride Level 104 MMOL/L (98-107) Carbon Dioxide Level 36 MMOL/L (21-32) H Anion Gap 1 mmol/L (5-15) L Blood Urea Nitrogen 12 mg/dL (7-18) Creatinine 1.0 MG/DL (0.55-1.30) Estimat Glomerular Filtration Rate > 60 mL/min (>60) Glucose Level 154 MG/DL (74-106) H Calcium Level 8.8 MG/DL (8.5-10.1) Plan Problems: (1) Cellulitis of groin, left (2) Cellulitis Assessment & Plan: chronic cellulitis of pannus s/p panniculectomy now extubated and recovering pain controlled Doing well post op. Patient not to ambulate or lay flat as this would put too much tension on the incision. Ok to do PT in bed. dressings changed wound stable will monitor okay for diet -iv abx -drain care -keep lindsey in place dressing changes -AM labs will follow with recs (3) COPD (chronic obstructive pulmonary disease) (4) Morbid obesity (5) Lumbar spondylosis (6) Right heart failure (7) ADALBERTO (obstructive sleep apnea) (8) Abdominal pannus (9) Seizures (10) Cerebrovascular accident (11) Peripheral edema (12) Abdominal wall cellulitis (13) UTI (urinary tract infection) (14) Hyponatremia (15) Uncontrolled seizures (16) Knee osteomyelits, right Gt Fernandez Feb 09, 2019 15:52
[2019-02-09 16:00] VITALS: BP 128/70
--- NOTE | 2019-02-09 17:11 | NUR ---
MANAGER CASINO NOTES FAXED REFERRAL TO [facility] T [phone], F [phone].FOLLOWED UP THEY CANNOT ACCEPT PT. STATING "PATIENT IS CLINICALLY INAPPROPRIATE FOR FACILITY". [facility] AND THEY STILL HAVE NO BED FOR PATIENT AT THIS TIME. WILL CONTINUE TO FAX PATIENT REFERRAL OUT AND [facility]ING [facility]LL.
--- NOTE | 2019-02-09 17:14 | NUR ---
TELEGRAPH INSTALLERPASSENGER SERVICE REPRESENTATIVE SI:CELLULITIS VS: BP128/70, P 20, SpO2 97, T 97.0, RR 20 RBC 2.66, H&H 8.1/25.2, IS:DILAUDID 2mg IV KEPPRA 1,000mg NORVASC 5mg CYMBALTA 30mg PLAN: Patient not to ambulate or lay flat as this would put too much tension on the incision Ok to do PT in bed. Wound care MED/SURG STATUS
--- NOTE | 2019-02-09 18:21 | Infectious Diseases Prog Note ---
Assessment/Plan Assessment/Plan Assessment: 02/01 SP Panniculectomy VDRF (post-op)- s/p extubation 02/02 Low grade fever x1 Mild leukocytosis- likely post op- resolved -02/01 CXR: Mild interstitial congestive changes persist, stable sp cx normal resp wesley (prelim) R groin swelling and pain- 2ry from Volume overload Sandy intertrigo; improving B/l Leg cellulitis and panniculitis - in the setting of chronic venous stasis, s /p Rx Active infectious cellulitis essentially resolved. Now he has chronic venous stasis and neuropathic pain with poorly healing wounds. Alot off this is due to the severe swelling in his feet but also he is poorly compliant with wound care instructions. Afebrile No leukocytosis Recent seizure episode -had L side weakness and spasticity CVA HTN bipolar disorder w/ psychotic features tobacco abuse anxiety disorder chronic pain CHF seizure disorder COPD morbid obesity Dm2 HTN SNF resident Plan: -Continue to monitor off abx -02/08 SP IV Vancomycin #8 -02/04 SP Aztreonam #4 -01/26 SP Fluconzole #5 - 01/07/19 SP IV Dapto d# 14 - 01/06/19 S/P Levofloxacin # - 12/25 sp Bactrim #/ and add IV Ancef #/ for cellulitis - Monitor CBC/CMP, temperatures - aspiration precautions - wound care per hospital protocol -plastic sx, Gen sx f/u -f/ucx Subjective Allergies: Coded Allergies: ASPIRIN (Verified Allergy, Unknown, 07/14/18) KETOROLAC (Verified Allergy, Unknown, 07/14/18) PENICILLINS (Verified Allergy, Unknown, 12/23/18) tolerated Ancef on 08/2018 Subjective afebrile no leukocytosis Bcx NTD Objective Vital Signs Last 24 Hour Vital Signs Date Time Temp Pulse Resp B/P (MAP) Pulse Ox O2 Delivery O2 Flow Rate FiO2 02/09/19 16:00 98.6 69 20 128/70 (89) 95 02/09/19 15:42 97.0 02/09/19 12:00 97.7 74 20 136/73 (94) 97 02/09/19 09:00 Nasal Cannula 2.0 02/09/19 08:31 78 122/70 02/09/19 08:00 97.0 78 19 122/70 (87) 97 02/09/19 04:00 99.0 71 24 124/68 (86) 96 02/09/19 00:00 98.4 71 24 124/67 (86) 99 02/08/19 21:00 Nasal Cannula 2.0 02/08/19 20:53 96 Nasal Cannula 2.0 28 02/08/19 20:00 98.7 73 24 120/60 (80) 98 Height (Feet): 6 Height (Inches): 0.00 Weight (Pounds): 418 Objective General Appearance: alert, moderate distress, obese Head: atraumatic Eyes: bilateral eye normal inspection ENT: normal ENT inspection, hearing grossly normal, normal voice Neck: normal inspection, full range of motion, supple, no bony tend Respiratory: normal inspection, lungs clear, normal breath sounds, no respiratory distress, no retraction, no wheezing Cardiovascular #1: regular rate, rhythm Gastrointestinal: normal inspection, normal bowel sounds, soft, no guarding, no hernia, other - Left lower abdominal area Genitourinary: other - Swollen groin edematous erythematous enlarged scrotum Musculoskeletal: normal inspection, back normal, normal range of motion Neurologic: normal inspection, alert, responsive, speech normal Psychiatric: depressed affect, anxious Skin: normal inspection, normal color, no rash Laboratory Tests Test 02/09/19 08:15 White Blood Count 8.2 K/UL (4.8-10.8) Red Blood Count 2.66 M/UL (4.70-6.10) L Hemoglobin 8.1 G/DL (14.2-18.0) L Hematocrit 25.2 % (42.0-52.0) L Mean Corpuscular Volume 94 FL (80-99) Mean Corpuscular Hemoglobin 30.3 PG (27.0-31.0) Mean Corpuscular Hemoglobin Concent 32.0 G/DL (32.0-36.0) Red Cell Distribution Width 13.8 % (11.6-14.8) Platelet Count 311 K/UL (150-450) Mean Platelet Volume 4.1 FL (6.5-10.1) L Neutrophils (%) (Auto) 66.5 % (45.0-75.0) Lymphocytes (%) (Auto) 20.8 % (20.0-45.0) Monocytes (%) (Auto) 6.3 % (1.0-10.0) Eosinophils (%) (Auto) 5.9 % (0.0-3.0) H Basophils (%) (Auto) 0.4 % (0.0-2.0) Sodium Level 141 MMOL/L (136-145) Potassium Level 3.9 MMOL/L (3.5-5.1) Chloride Level 104 MMOL/L (98-107) Carbon Dioxide Level 36 MMOL/L (21-32) H Anion Gap 1 mmol/L (5-15) L Blood Urea Nitrogen 12 mg/dL (7-18) Creatinine 1.0 MG/DL (0.55-1.30) Estimat Glomerular Filtration Rate > 60 mL/min (>60) Glucose Level 154 MG/DL (74-106) H Calcium Level 8.8 MG/DL (8.5-10.1) Current Medications Medications (Trade) Dose Ordered Sig/Luis Route PRN Reason Start Time Stop Time Status Last Admin Dose Admin Acetaminophen (Tylenol) 650 mg Q4H PRN ORAL T>100.5 02/06/19 12:30 03/08/19 12:24 Amlodipine Besylate (Norvasc) 5 mg DAILY ORAL 02/07/19 09:00 02/22/19 08:59 02/09/19 08:31 Chlorhexidine Gluconate (Ruby-Hex 2%) 1 applic DAILY@1999 TOPIC 02/06/19 20:00 02/26/19 19:59 02/07/19 20:35 Dextrose (Dextrose 50%) 25 ml Q30M PRN IV Hypoglycemia 02/06/19 12:30 02/21/19 10:59 Dextrose (Dextrose 50%) 50 ml Q30M PRN IV hypoglycemia 02/06/19 12:30 02/21/19 10:59 Duloxetine HCl (Cymbalta) 30 mg DAILY ORAL 02/07/19 09:00 02/22/19 08:59 02/09/19 08:31 Fentanyl (Duragesic) 1 patch Q72H TDERMAL 02/11/19 13:30 02/18/19 13:29 Fentanyl (Duragesic) 2 patch Q72H TDERMAL 02/08/19 13:30 02/11/19 13:29 02/08/19 13:26 Hydromorphone HCl (Dilaudid) 2 mg Q3H PRN IV SEVERE BREAKTHRU PAIN (7-10) 02/08/19 12:27 02/13/19 12:26 02/09/19 18:16 Levetiracetam (Keppra) 1,000 mg Q8HR ORAL 02/06/19 14:00 02/21/19 13:59 02/09/19 13:24 Lorazepam (Ativan 2mg/ml 1ml) 2 mg Q4H PRN IV For Anxiety 02/06/19 12:28 02/13/19 12:27 Methadone HCl (Methadone HCl) 10 mg Q6H PRN ORAL MODERATE BREAKTHROUGH PAIN 02/08/19 12:45 02/13/19 12:27 02/08/19 22:33 Miconazole Nitrate (Miconazole Nitrate) 1 applic Q12HR TOPIC 02/06/19 21:00 03/05/19 20:59 02/09/19 08:32 Miscellaneous Medication (fentaNYL Destruction) 1 ea Q72H MISC 02/14/19 13:30 03/16/19 13:29 Miscellaneous Medication (fentaNYL Destruction) 2 ea Q72H MISC 02/11/19 13:30 02/11/19 14:30 Naloxone HCl (Narcan) 0.1 mg PRN IV Sedation scale 3 or 4 02/06/19 12:30 04/04/19 11:59 Ondansetron HCl (Zofran) 4 mg Q6H PRN IVP Nausea & Vomiting 02/06/19 12:28 03/08/19 12:27 Pantoprazole (Protonix) 40 mg DAILY IV 02/07/19 09:00 03/04/19 08:59 02/09/19 08:31 Alexa Patterson M.D. Feb 09, 2019 18:21
--- NOTE | 2019-02-09 19:35 | NUR ---
HAND-OFF: Report given to MICAELA Waite.
--- NOTE | 2019-02-09 19:55 | NUR ---
NURSE NOTES: Received report from MICAELA Daly. Patient A&Ox4. On nasal cannula 2L/min. No signs of distress or labored breathing. PICC line intact, patent, and saline locked. Surgical site dressing dry and intact. Bed in lowest position with call light in reach. Will continue with plan of care.
[2019-02-09 20:00] VITALS: BP 143/81
[2019-02-09] MEDS: Dyna-Hex 2% Top Sol 2oz TOPIC SCH (21:15)
[2019-02-10] VITALS: BP 136/77
[2019-02-10 04:00] VITALS: BP 111/60
[2019-02-10] MEDS: levETIRAcetam 500mg/5ml Liquid ORAL SCH ×3 (06:35→21:34)
--- NOTE | 2019-02-10 07:05 | General Progress Note ---
Assessment/Plan Problem List: (1) Seizures ICD Codes: R56.9 - Unspecified convulsions SNOMED: 23997282 (2) Cerebrovascular accident ICD Codes: I63.9 - Cerebral infarction, unspecified SNOMED: 676248826 (3) Peripheral edema ICD Codes: R60.9 - Edema, unspecified SNOMED: 325161538 (4) Cellulitis of groin, left ICD Codes: L03.314 - Cellulitis of groin SNOMED: 22623357 (5) Cellulitis ICD Codes: L03.90 - Cellulitis, unspecified SNOMED: 223779523 (6) COPD (chronic obstructive pulmonary disease) ICD Codes: J44.9 - Chronic obstructive pulmonary disease, unspecified SNOMED: 51986215 (7) Morbid obesity ICD Codes: E66.01 - Morbid (severe) obesity due to excess calories SNOMED: 756253516 (8) Abdominal pannus ICD Codes: E65 - Localized adiposity SNOMED: 2374124211398 (9) Abdominal wall cellulitis ICD Codes: L03.311 - Cellulitis of abdominal wall SNOMED: 65875707 (10) UTI (urinary tract infection) ICD Codes: N39.0 - Urinary tract infection, site not specified SNOMED: 63710003 Status: stable, progressing Assessment/Plan: o2 pulm tx abx pt diet cbc bmp am dc plan snf Subjective Constitutional: Reports: weakness Allergies: Coded Allergies: ASPIRIN (Verified Allergy, Unknown, 07/14/18) KETOROLAC (Verified Allergy, Unknown, 07/14/18) PENICILLINS (Verified Allergy, Unknown, 12/23/18) tolerated Ancef on 08/2018 All Systems: reviewed and negative except above Subjective o2nc sleepy calm Objective Last 24 Hour Vital Signs Date Time Temp Pulse Resp B/P (MAP) Pulse Ox O2 Delivery O2 Flow Rate FiO2 02/10/19 04:00 98.6 69 19 111/60 (77) 95 02/10/19 00:00 98.5 70 20 136/77 (96) 96 02/09/19 21:00 Nasal Cannula 2.0 02/09/19 20:01 96 Nasal Cannula 2.0 28 02/09/19 20:00 98.3 73 19 143/81 (101) 95 02/09/19 18:46 98.6 02/09/19 16:00 98.6 69 20 128/70 (89) 95 02/09/19 12:00 97.7 74 20 136/73 (94) 97 02/09/19 09:00 Nasal Cannula 2.0 02/09/19 08:31 78 122/70 02/09/19 08:00 97.0 78 19 122/70 (87) 97 Intake and Output 02/09/19 02/10/19 19:00 07:00 Intake Total 716 ml 780 ml Output Total 1642 ml 800 ml Balance -926 ml -20 ml Intake Oral 716 ml 780 ml Output Urine Total 1600 ml 800 ml Drainage Total 42 ml # Voids 1 Laboratory Tests 02/09/19 08:15: White Blood Count 8.2, Red Blood Count 2.66L, Hemoglobin 8.1L, Hematocrit 25.2L , Mean Corpuscular Volume 94, Mean Corpuscular Hemoglobin 30.3, Mean Corpuscular Hemoglobin Concent 32.0, Red Cell Distribution Width 13.8, Platelet Count 311, Mean Platelet Volume 4.1L, Neutrophils (%) (Auto) 66.5, Lymphocytes ( %) (Auto) 20.8, Monocytes (%) (Auto) 6.3, Eosinophils (%) (Auto) 5.9H, Basophils (%) (Auto) 0.4, Sodium Level 141, Potassium Level 3.9, Chloride Level 104, Carbon Dioxide Level 36H, Anion Gap 1L, Blood Urea Nitrogen 12, Creatinine 1.0, Estimat Glomerular Filtration Rate > 60, Glucose Level 154H, Calcium Level 8.8 Height (Feet): 6 Height (Inches): 0.00 Weight (Pounds): 418 General Appearance: lethargic EENT: normal ENT inspection Neck: normal alignment Cardiovascular: normal peripheral pulses, normal rate, regular rhythm Respiratory/Chest: chest wall non-tender, lungs clear, normal breath sounds Abdomen: normal bowel sounds, soft, distended Extremities: normal inspection Edema: 1+ Arm (L), 1+ Arm (R), 1+ Leg (L), 1+ Leg (R), 1+ Pedal (L), 1+ Pedal ( R), 1+ Generalized Edema: trace edema Neurologic: motor weakness Skin: normal pigmentation, warm/dry Objective abd dressing c&d Ernesto Nicole DO Feb 10, 2019 07:05
[2019-02-10 07:38] LABS: HEMATOCRIT 24.9 % (42.0-52.0); HEMOGLOBIN 7.8 G/DL (14.2-18.0); MEAN CORPUSCULAR VOLUME 93 FL (80-99); PLATELET COUNT 325 K/UL (150-450); RED BLOOD COUNT 2.67 M/UL (4.70-6.10); RED CELL DISTRIBUTION WIDTH 13.7 % (11.6-14.8)
[2019-02-10 07:49] LABS: ANION GAP 0 mmol/L (5-15); BLOOD UREA NITROGEN 14 mg/dL (7-18); CALCIUM 8.7 MG/DL (8.5-10.1); CARBON DIOXIDE 39 MMOL/L (21-32); CHLORIDE 103 MMOL/L (98-107); CREATININE 0.8 MG/DL (0.55-1.30); POTASSIUM 4.2 MMOL/L (3.5-5.1); SODIUM 142 MMOL/L (136-145)
--- NOTE | 2019-02-10 08:01 | NUR ---
NURSE NOTES: Received report from MICAELA North. Pt in bed, awake, talkative, HOB >30 degrees per order, discussed plan of care, no complaints of pain at this time, no apparent distress noted, bed in lowest position, call light within reach.
--- NOTE | 2019-02-10 08:24 | NUR ---
HAND-OFF: Report given to MICAELA Foss.
--- NOTE | 2019-02-10 08:49 | NUR ---
NURSE NOTES: Notified Dr. Dixon Hgb 7.8 and Hct 24.9 today
[2019-02-10 09:00] VITALS: BP 136/72
[2019-02-10] MEDS: Miconazole 2% Cream 30gm TOPIC SCH ×2 (09:00→21:34)
[2019-02-10] MEDS: Pantoprazole Inj IV SCH (09:42)
[2019-02-10] MEDS: DULoxetine 30mg cap ORAL SCH (09:42)
[2019-02-10 12:00] VITALS: BP 131/63
--- NOTE | 2019-02-10 12:29 | Pulmonology Progress Note ---
Assessment/Plan Problems: (1) Abdominal pannus (2) COPD (chronic obstructive pulmonary disease) (3) ADALBERTO (obstructive sleep apnea) (4) Right heart failure (5) Lumbar spondylosis (6) Morbid obesity Assessment/Plan no fever or leukocytosis decrease Dilaudid to 2 mg needs to be on low calorie diet, increase Fentanyl patch to 100 labs in am prbc today symptomatic treatment decrease dilaudid to 1 mg q 3 hours. dvt prophylaxis. doing better Subjective ROS Limited/Unobtainable: No Constitutional: Reports: no symptoms HEENT: Repors: no symptoms Allergies: Coded Allergies: ASPIRIN (Verified Allergy, Unknown, 07/14/18) KETOROLAC (Verified Allergy, Unknown, 07/14/18) PENICILLINS (Verified Allergy, Unknown, 12/23/18) tolerated Ancef on 08/2018 Objective Last 24 Hour Vital Signs Date Time Temp Pulse Resp B/P (MAP) Pulse Ox O2 Delivery O2 Flow Rate FiO2 02/10/19 10:12 98.3 02/10/19 09:42 71 136/72 02/10/19 09:00 98.3 71 16 136/72 (93) 98 02/10/19 09:00 Nasal Cannula 2.0 02/10/19 04:00 98.6 69 19 111/60 (77) 95 02/10/19 00:00 98.5 70 20 136/77 (96) 96 02/09/19 21:00 Nasal Cannula 2.0 02/09/19 20:01 96 Nasal Cannula 2.0 28 02/09/19 20:00 98.3 73 19 143/81 (101) 95 02/09/19 16:00 98.6 69 20 128/70 (89) 95 Intake and Output 02/09/19 02/10/19 19:00 07:00 Intake Total 716 ml 780 ml Output Total 1642 ml 1820 ml Balance -926 ml -1040 ml Intake Oral 716 ml 780 ml Output Urine Total 1600 ml 1800 ml Drainage Total 42 ml 20 ml # Voids 1 Objective General Appearance: WD/WN HEENT: normocephalic Respiratory/Chest: chest wall non-tender,decreased breath sounds Cardiovascular: normal peripheral pulses, normal rate Abdomen: normal bowel sounds, soft, massive fat amount Genitourinary: swollen testicles, Extremities: extreme edema Laboratory Tests 02/10/19 06:45: White Blood Count 7.0, Red Blood Count 2.67L, Hemoglobin 7.8L, Hematocrit 24.9L , Mean Corpuscular Volume 93, Mean Corpuscular Hemoglobin 29.3, Mean Corpuscular Hemoglobin Concent 31.4L, Red Cell Distribution Width 13.7, Platelet Count 325, Mean Platelet Volume 4.5L, Neutrophils (%) (Auto) , Lymphocytes (%) (Auto) , Monocytes (%) (Auto) , Eosinophils (%) (Auto) , Basophils (%) (Auto) , Differential Total Cells Counted 100, Neutrophils % ( Manual) 62, Lymphocytes % (Manual) 24, Monocytes % (Manual) 5, Eosinophils % ( Manual) 9H, Basophils % (Manual) 0, Band Neutrophils 0, Platelet Estimate Adequate, Platelet Morphology Normal, Hypochromasia 1+, Sodium Level 142, Potassium Level 4.2, Chloride Level 103, Carbon Dioxide Level 39H, Anion Gap 0L , Blood Urea Nitrogen 14, Creatinine 0.8, Estimat Glomerular Filtration Rate > 60, Glucose Level 102, Calcium Level 8.7 Current Medications Medications (Trade) Dose Ordered Sig/Luis Route PRN Reason Start Time Stop Time Status Last Admin Dose Admin Acetaminophen (Tylenol) 650 mg Q4H PRN ORAL T>100.5 02/06/19 12:30 03/08/19 12:24 Amlodipine Besylate (Norvasc) 5 mg DAILY ORAL 02/07/19 09:00 02/22/19 08:59 02/10/19 09:42 Chlorhexidine Gluconate (Ruby-Hex 2%) 1 applic DAILY@1999 TOPIC 02/06/19 20:00 02/26/19 19:59 02/09/19 21:15 Dextrose (Dextrose 50%) 25 ml Q30M PRN IV Hypoglycemia 02/06/19 12:30 02/21/19 10:59 Dextrose (Dextrose 50%) 50 ml Q30M PRN IV hypoglycemia 02/06/19 12:30 02/21/19 10:59 Duloxetine HCl (Cymbalta) 30 mg DAILY ORAL 02/07/19 09:00 02/22/19 08:59 02/10/19 09:42 Fentanyl (Duragesic) 1 patch Q72H TDERMAL 02/11/19 13:30 02/18/19 13:29 Fentanyl (Duragesic) 2 patch Q72H TDERMAL 02/08/19 13:30 02/11/19 13:29 02/08/19 13:26 Hydromorphone HCl (Dilaudid) 1 mg Q3H PRN IV SEVERE BREAKTHRU PAIN (7-10) 02/10/19 11:42 02/17/19 11:41 Levetiracetam (Keppra) 1,000 mg Q8HR ORAL 02/06/19 14:00 02/21/19 13:59 02/10/19 06:35 Lorazepam (Ativan 2mg/ml 1ml) 2 mg Q4H PRN IV For Anxiety 02/06/19 12:28 02/13/19 12:27 Methadone HCl (Methadone HCl) 10 mg Q6H PRN ORAL MODERATE BREAKTHROUGH PAIN 02/08/19 12:45 02/13/19 12:27 02/08/19 22:33 Miconazole Nitrate (Miconazole Nitrate) 1 applic Q12HR TOPIC 02/06/19 21:00 03/05/19 20:59 02/10/19 09:00 Miscellaneous Medication (fentaNYL Destruction) 1 ea Q72H MISC 02/14/19 13:30 03/16/19 13:29 Miscellaneous Medication (fentaNYL Destruction) 2 ea Q72H MISC 02/11/19 13:30 02/11/19 14:30 Naloxone HCl (Narcan) 0.1 mg PRN IV Sedation scale 3 or 4 02/06/19 12:30 04/04/19 11:59 Ondansetron HCl (Zofran) 4 mg Q6H PRN IVP Nausea & Vomiting 02/06/19 12:28 03/08/19 12:27 Pantoprazole (Protonix) 40 mg DAILY IV 02/07/19 09:00 03/04/19 08:59 02/10/19 09:42 Bill Dixon MD Feb 10, 2019 12:29
--- NOTE | 2019-02-10 15:01 | Infectious Diseases Prog Note ---
Assessment/Plan Assessment/Plan Assessment: 02/01 SP Panniculectomy VDRF (post-op)- s/p extubation 02/02 Low grade fever x1 Mild leukocytosis- likely post op- resolved -02/01 CXR: Mild interstitial congestive changes persist, stable sp cx normal resp wesley (prelim) R groin swelling and pain- 2ry from Volume overload Sandy intertrigo; improving B/l Leg cellulitis and panniculitis - in the setting of chronic venous stasis, s /p Rx Active infectious cellulitis essentially resolved. Now he has chronic venous stasis and neuropathic pain with poorly healing wounds. Alot off this is due to the severe swelling in his feet but also he is poorly compliant with wound care instructions. Afebrile No leukocytosis Recent seizure episode -had L side weakness and spasticity CVA HTN bipolar disorder w/ psychotic features tobacco abuse anxiety disorder chronic pain CHF seizure disorder COPD morbid obesity Dm2 HTN SNF resident Plan: -Continue to monitor off abx -02/08 SP IV Vancomycin #8 -02/04 SP Aztreonam #4 -01/26 SP Fluconzole #5 - 01/07/19 SP IV Dapto d# 14 - 01/06/19 S/P Levofloxacin # - 12/25 sp Bactrim #/ and add IV Ancef #/ for cellulitis - Monitor CBC/CMP, temperatures - aspiration precautions - wound care per hospital protocol -plastic sx, Gen sx f/u -f/ucx Subjective Allergies: Coded Allergies: ASPIRIN (Verified Allergy, Unknown, 07/14/18) KETOROLAC (Verified Allergy, Unknown, 07/14/18) PENICILLINS (Verified Allergy, Unknown, 12/23/18) tolerated Ancef on 08/2018 Subjective afebrile no leukocytosis Bcx Neg Objective Vital Signs Last 24 Hour Vital Signs Date Time Temp Pulse Resp B/P (MAP) Pulse Ox O2 Delivery O2 Flow Rate FiO2 02/10/19 13:00 98.3 02/10/19 12:00 98.1 68 19 131/63 (85) 96 02/10/19 10:12 98.3 02/10/19 09:42 71 136/72 02/10/19 09:00 98.3 71 16 136/72 (93) 98 02/10/19 09:00 Nasal Cannula 2.0 02/10/19 04:00 98.6 69 19 111/60 (77) 95 02/10/19 00:00 98.5 70 20 136/77 (96) 96 02/09/19 21:00 Nasal Cannula 2.0 02/09/19 20:01 96 Nasal Cannula 2.0 28 02/09/19 20:00 98.3 73 19 143/81 (101) 95 02/09/19 16:00 98.6 69 20 128/70 (89) 95 Height (Feet): 6 Height (Inches): 0.00 Weight (Pounds): 418 Objective General Appearance: alert, moderate distress, obese Head: atraumatic Eyes: bilateral eye normal inspection ENT: normal ENT inspection, hearing grossly normal, normal voice Neck: normal inspection, full range of motion, supple, no bony tend Respiratory: normal inspection, lungs clear, normal breath sounds, no respiratory distress, no retraction, no wheezing Cardiovascular #1: regular rate, rhythm Gastrointestinal: normal inspection, normal bowel sounds, soft, no guarding, no hernia, other - Left lower abdominal area Genitourinary: other - Swollen groin edematous erythematous enlarged scrotum Musculoskeletal: normal inspection, back normal, normal range of motion Neurologic: normal inspection, alert, responsive, speech normal Psychiatric: depressed affect, anxious Skin: normal inspection, normal color, no rash Laboratory Tests Test 02/10/19 06:45 White Blood Count 7.0 K/UL (4.8-10.8) Red Blood Count 2.67 M/UL (4.70-6.10) L Hemoglobin 7.8 G/DL (14.2-18.0) L Hematocrit 24.9 % (42.0-52.0) L Mean Corpuscular Volume 93 FL (80-99) Mean Corpuscular Hemoglobin 29.3 PG (27.0-31.0) Mean Corpuscular Hemoglobin Concent 31.4 G/DL (32.0-36.0) L Red Cell Distribution Width 13.7 % (11.6-14.8) Platelet Count 325 K/UL (150-450) Mean Platelet Volume 4.5 FL (6.5-10.1) L Neutrophils (%) (Auto) % (45.0-75.0) Lymphocytes (%) (Auto) % (20.0-45.0) Monocytes (%) (Auto) % (1.0-10.0) Eosinophils (%) (Auto) % (0.0-3.0) Basophils (%) (Auto) % (0.0-2.0) Differential Total Cells Counted 100 Neutrophils % (Manual) 62 % (45-75) Lymphocytes % (Manual) 24 % (20-45) Monocytes % (Manual) 5 % (1-10) Eosinophils % (Manual) 9 % (0-3) H Basophils % (Manual) 0 % (0-2) Band Neutrophils 0 % (0-8) Platelet Estimate Adequate Platelet Morphology Normal Hypochromasia 1+ Sodium Level 142 MMOL/L (136-145) Potassium Level 4.2 MMOL/L (3.5-5.1) Chloride Level 103 MMOL/L (98-107) Carbon Dioxide Level 39 MMOL/L (21-32) H Anion Gap 0 mmol/L (5-15) L Blood Urea Nitrogen 14 mg/dL (7-18) Creatinine 0.8 MG/DL (0.55-1.30) Estimat Glomerular Filtration Rate > 60 mL/min (>60) Glucose Level 102 MG/DL (74-106) Calcium Level 8.7 MG/DL (8.5-10.1) Current Medications Medications (Trade) Dose Ordered Sig/Luis Route PRN Reason Start Time Stop Time Status Last Admin Dose Admin Acetaminophen (Tylenol) 650 mg Q4H PRN ORAL T>100.5 02/06/19 12:30 03/08/19 12:24 Amlodipine Besylate (Norvasc) 5 mg DAILY ORAL 02/07/19 09:00 02/22/19 08:59 02/10/19 09:42 Chlorhexidine Gluconate (Ruby-Hex 2%) 1 applic DAILY@1999 TOPIC 02/06/19 20:00 02/26/19 19:59 02/09/19 21:15 Dextrose (Dextrose 50%) 25 ml Q30M PRN IV Hypoglycemia 02/06/19 12:30 02/21/19 10:59 Dextrose (Dextrose 50%) 50 ml Q30M PRN IV hypoglycemia 02/06/19 12:30 02/21/19 10:59 Duloxetine HCl (Cymbalta) 30 mg DAILY ORAL 02/07/19 09:00 02/22/19 08:59 02/10/19 09:42 Fentanyl (Duragesic) 1 patch Q72H TDERMAL 02/11/19 13:30 02/18/19 13:29 Fentanyl (Duragesic) 2 patch Q72H TDERMAL 02/08/19 13:30 02/11/19 13:29 02/08/19 13:26 Hydromorphone HCl (Dilaudid) 1 mg Q3H PRN IV SEVERE BREAKTHRU PAIN (7-10) 02/10/19 11:42 02/17/19 11:41 02/10/19 12:30 Levetiracetam (Keppra) 1,000 mg Q8HR ORAL 02/06/19 14:00 02/21/19 13:59 02/10/19 13:29 Lorazepam (Ativan 2mg/ml 1ml) 2 mg Q4H PRN IV For Anxiety 02/06/19 12:28 02/13/19 12:27 Methadone HCl (Methadone HCl) 10 mg Q6H PRN ORAL MODERATE BREAKTHROUGH PAIN 02/08/19 12:45 02/13/19 12:27 02/08/19 22:33 Miconazole Nitrate (Miconazole Nitrate) 1 applic Q12HR TOPIC 02/06/19 21:00 03/05/19 20:59 02/10/19 09:00 Miscellaneous Medication (fentaNYL Destruction) 1 ea Q72H MISC 02/14/19 13:30 03/16/19 13:29 Miscellaneous Medication (fentaNYL Destruction) 2 ea Q72H MISC 02/11/19 13:30 02/11/19 14:30 Naloxone HCl (Narcan) 0.1 mg PRN IV Sedation scale 3 or 4 02/06/19 12:30 04/04/19 11:59 Ondansetron HCl (Zofran) 4 mg Q6H PRN IVP Nausea & Vomiting 02/06/19 12:28 03/08/19 12:27 Pantoprazole (Protonix) 40 mg DAILY IV 02/07/19 09:00 03/04/19 08:59 02/10/19 09:42 Alexa Patterson M.D. Feb 10, 2019 15:01
--- NOTE | 2019-02-10 15:19 | Cardiac Electrophysiology PN ---
Assessment/Plan Assessment/Plan 1. Hypertension. On amlodipine 5 daily . EF 60% 2. Severe bilateral lower extremity edema and cellulitis. On abx per Dr. Patterson. 3. Abdominal pannus. S/P Resection of pannus 02/01/19 Has 2 MARQUEZ drains with minimal drainage 4. COPD and ADALBERTO. 5. S/P Resp failure, extubated 6. Right heart failure. 7. Lumbar spondylosis. 8. Morbid obesity. 9. Anemia getting PRBC DW RN Subjective Subjective No CP or SOB. No events. Getting transfusion Objective Last 24 Hour Vital Signs Date Time Temp Pulse Resp B/P (MAP) Pulse Ox O2 Delivery O2 Flow Rate FiO2 02/10/19 13:00 98.3 02/10/19 12:00 98.1 68 19 131/63 (85) 96 02/10/19 10:12 98.3 02/10/19 09:42 71 136/72 02/10/19 09:00 98.3 71 16 136/72 (93) 98 02/10/19 09:00 Nasal Cannula 2.0 02/10/19 04:00 98.6 69 19 111/60 (77) 95 02/10/19 00:00 98.5 70 20 136/77 (96) 96 02/09/19 21:00 Nasal Cannula 2.0 02/09/19 20:01 96 Nasal Cannula 2.0 28 02/09/19 20:00 98.3 73 19 143/81 (101) 95 02/09/19 16:00 98.6 69 20 128/70 (89) 95 Intake and Output 02/09/19 02/10/19 19:00 07:00 Intake Total 716 ml 780 ml Output Total 1642 ml 1820 ml Balance -926 ml -1040 ml Intake Oral 716 ml 780 ml Output Urine Total 1600 ml 1800 ml Drainage Total 42 ml 20 ml # Voids 1 Laboratory Tests Test 02/10/19 06:45 White Blood Count 7.0 K/UL (4.8-10.8) Red Blood Count 2.67 M/UL (4.70-6.10) L Hemoglobin 7.8 G/DL (14.2-18.0) L Hematocrit 24.9 % (42.0-52.0) L Mean Corpuscular Volume 93 FL (80-99) Mean Corpuscular Hemoglobin 29.3 PG (27.0-31.0) Mean Corpuscular Hemoglobin Concent 31.4 G/DL (32.0-36.0) L Red Cell Distribution Width 13.7 % (11.6-14.8) Platelet Count 325 K/UL (150-450) Mean Platelet Volume 4.5 FL (6.5-10.1) L Neutrophils (%) (Auto) % (45.0-75.0) Lymphocytes (%) (Auto) % (20.0-45.0) Monocytes (%) (Auto) % (1.0-10.0) Eosinophils (%) (Auto) % (0.0-3.0) Basophils (%) (Auto) % (0.0-2.0) Differential Total Cells Counted 100 Neutrophils % (Manual) 62 % (45-75) Lymphocytes % (Manual) 24 % (20-45) Monocytes % (Manual) 5 % (1-10) Eosinophils % (Manual) 9 % (0-3) H Basophils % (Manual) 0 % (0-2) Band Neutrophils 0 % (0-8) Platelet Estimate Adequate Platelet Morphology Normal Hypochromasia 1+ Sodium Level 142 MMOL/L (136-145) Potassium Level 4.2 MMOL/L (3.5-5.1) Chloride Level 103 MMOL/L (98-107) Carbon Dioxide Level 39 MMOL/L (21-32) H Anion Gap 0 mmol/L (5-15) L Blood Urea Nitrogen 14 mg/dL (7-18) Creatinine 0.8 MG/DL (0.55-1.30) Estimat Glomerular Filtration Rate > 60 mL/min (>60) Glucose Level 102 MG/DL (74-106) Calcium Level 8.7 MG/DL (8.5-10.1) Objective HEAD AND NECK: No JVD. LUNGS: Clear. CARDIOVASCULAR: Regular S1 and S2 with no gallop or murmur. ABDOMEN: Very swollen, erythematous, and enlarged scrotum. S/P abdominal surgery with drains EXTREMITIES: 2+ pitting edema and cellulitis of the legs. Carlos Yee MD Feb 10, 2019 15:19
[2019-02-10 16:00] VITALS: BP 138/68
--- NOTE | 2019-02-10 16:30 | Surgery Progress Note ---
Surgery Progress Note Subjective Symptoms: improved, tolerating diet, passing flatus Objective Last 24 Hour Vital Signs Date Time Temp Pulse Resp B/P (MAP) Pulse Ox O2 Delivery O2 Flow Rate FiO2 02/10/19 16:06 98.3 02/10/19 16:00 98.1 62 16 138/68 (91) 95 02/10/19 12:00 98.1 68 19 131/63 (85) 96 02/10/19 10:12 98.3 02/10/19 09:42 71 136/72 02/10/19 09:00 98.3 71 16 136/72 (93) 98 02/10/19 09:00 Nasal Cannula 2.0 02/10/19 04:00 98.6 69 19 111/60 (77) 95 02/10/19 00:00 98.5 70 20 136/77 (96) 96 02/09/19 21:00 Nasal Cannula 2.0 02/09/19 20:01 96 Nasal Cannula 2.0 28 02/09/19 20:00 98.3 73 19 143/81 (101) 95 I&O Intake and Output 02/09/19 02/10/19 19:00 07:00 Intake Total 716 ml 780 ml Output Total 1642 ml 1820 ml Balance -926 ml -1040 ml Intake Oral 716 ml 780 ml Output Urine Total 1600 ml 1800 ml Drainage Total 42 ml 20 ml # Voids 1 Drains: lisbet Cardiovascular: RSR Respiratory: clear Abdomen: soft, non-tender, present bowel sounds, non-distended Extremities: no edema, no tenderness, no cyanosis Laboratory Tests Test 02/10/19 06:45 White Blood Count 7.0 K/UL (4.8-10.8) Red Blood Count 2.67 M/UL (4.70-6.10) L Hemoglobin 7.8 G/DL (14.2-18.0) L Hematocrit 24.9 % (42.0-52.0) L Mean Corpuscular Volume 93 FL (80-99) Mean Corpuscular Hemoglobin 29.3 PG (27.0-31.0) Mean Corpuscular Hemoglobin Concent 31.4 G/DL (32.0-36.0) L Red Cell Distribution Width 13.7 % (11.6-14.8) Platelet Count 325 K/UL (150-450) Mean Platelet Volume 4.5 FL (6.5-10.1) L Neutrophils (%) (Auto) % (45.0-75.0) Lymphocytes (%) (Auto) % (20.0-45.0) Monocytes (%) (Auto) % (1.0-10.0) Eosinophils (%) (Auto) % (0.0-3.0) Basophils (%) (Auto) % (0.0-2.0) Differential Total Cells Counted 100 Neutrophils % (Manual) 62 % (45-75) Lymphocytes % (Manual) 24 % (20-45) Monocytes % (Manual) 5 % (1-10) Eosinophils % (Manual) 9 % (0-3) H Basophils % (Manual) 0 % (0-2) Band Neutrophils 0 % (0-8) Platelet Estimate Adequate Platelet Morphology Normal Hypochromasia 1+ Sodium Level 142 MMOL/L (136-145) Potassium Level 4.2 MMOL/L (3.5-5.1) Chloride Level 103 MMOL/L (98-107) Carbon Dioxide Level 39 MMOL/L (21-32) H Anion Gap 0 mmol/L (5-15) L Blood Urea Nitrogen 14 mg/dL (7-18) Creatinine 0.8 MG/DL (0.55-1.30) Estimat Glomerular Filtration Rate > 60 mL/min (>60) Glucose Level 102 MG/DL (74-106) Calcium Level 8.7 MG/DL (8.5-10.1) Plan Problems: (1) Cellulitis of groin, left (2) Cellulitis Assessment & Plan: chronic cellulitis of pannus s/p panniculectomy now extubated and recovering pain controlled Doing well post op. Patient not to ambulate or lay flat as this would put too much tension on the incision. Ok to do PT in bed. dressings changed wound stable will monitor okay for diet -iv abx -drain care -keep lindsey in place dressing changes -AM labs will follow with recs (3) COPD (chronic obstructive pulmonary disease) (4) Morbid obesity (5) Lumbar spondylosis (6) Right heart failure (7) ADALBERTO (obstructive sleep apnea) (8) Abdominal pannus (9) Seizures (10) Cerebrovascular accident (11) Peripheral edema (12) Abdominal wall cellulitis (13) UTI (urinary tract infection) (14) Hyponatremia (15) Uncontrolled seizures (16) Knee osteomyelits, right Gt Fernandez Feb 10, 2019 16:29
--- NOTE | 2019-02-10 16:48 | NUR ---
CHASSIS MECH[employer]IL [employer] SI:CELLULITIS VS: BP 136/72, P 71, T 98.3, RR 16, SpO2 95 RBC 2.67, H&H 7.8/24.9 IS:DILAUDID 1mg IV KEPPRA 1,00mg NORVASC 5mg CYMBALTA 30mg MED/SURG STATUS
--- NOTE | 2019-02-10 18:30 | Progress Note ---
DATE: 02/10/2019 SUBJECTIVE: This is a 53-year-old patient. He continues to have some mood lability. He continues to some confusion and disorganized thought process, but mostly high levels of anxiety and depression, worsened by the stress of his medical illness. That is why, his attending has requested daily psychiatric consultation. MENTAL STATUS EXAMINATION: This is a 53-year-old male. Appearance is disheveled. Attitude, irritable and agitated. Affect, guarded and restricted. Intellect poor. Mood, depressed and anxious. Motor activity, psychomotor agitation. Attention span is poor. Orientation x2. Speech is normal flow. Thought process, slightly disorganized. Insight and judgment is fair. DIAGNOSIS: Major depressive disorder, mild, recurrent, rule out generalized anxiety disorder. PLAN: Treat him with Cymbalta 30 mg a day. Chart reviewed. Discussed with staff. Seen and assessed in his room. A 20 minutes of cognitive behavioral therapy provided to help him identify his automatic negative thoughts and help him convert those negative thoughts to more positive thoughts to reduce depression, anxiety, and mood lability. Laney Mcghee M.D. DR: ENRIQUE JOB#: [id number] CC:
--- NOTE | 2019-02-10 19:52 | NUR ---
HAND-OFF: Report given to MICAELA Diane.
[2019-02-10 20:00] VITALS: BP 144/74
--- NOTE | 2019-02-10 21:30 | NUR ---
NURSE NOTES: Pt is in bed, awake and alert. No acute distress noted. Vitals stable. Wound dressing dry and intact. Pt repositioned. Pain medication given as ordered PRN. Both lumen of PICC line flushed. Pt instructed to call for assistance before getting out of bed. Bed locked low in position,side rails up and call light within reach.
[2019-02-10] MEDS: Dyna-Hex 2% Top Sol 2oz TOPIC SCH (21:34)
--- NOTE | 2019-02-11 04:35 | NUR ---
NURSE NOTES: Pt is in bed, asleep. No Sob or acute distress noted.
[2019-02-11 06:28] LABS: BASOPHILS % (AUTO) 0.8 % (0.0-2.0); HEMATOCRIT 26.5 % (42.0-52.0); HEMOGLOBIN 8.3 G/DL (14.2-18.0); LYMPHOCYTES % (AUTO) 26.6 % (20.0-45.0); MEAN CORPUSCULAR VOLUME 94 FL (80-99); MONOCYTES % (AUTO) 8.5 % (1.0-10.0); NEUTROPHILS % (AUTO) 57.2 % (45.0-75.0); PLATELET COUNT 305 K/UL (150-450); RED BLOOD COUNT 2.81 M/UL (4.70-6.10); RED CELL DISTRIBUTION WIDTH 13.9 % (11.6-14.8); WHITE BLOOD COUNT 6.5 K/UL (4.8-10.8)
[2019-02-11] MEDS: levETIRAcetam 500mg/5ml Liquid ORAL SCH ×3 (06:30→22:09)
[2019-02-11 06:53] LABS: ANION GAP -2 mmol/L (5-15); BLOOD UREA NITROGEN 13 mg/dL (7-18); CARBON DIOXIDE 40 MMOL/L (21-32); CHLORIDE 106 MMOL/L (98-107); CREATININE 0.8 MG/DL (0.55-1.30); POTASSIUM 4.6 MMOL/L (3.5-5.1); SODIUM 144 MMOL/L (136-145)
--- NOTE | 2019-02-11 07:10 | NUR ---
HAND-OFF: Report given to MICAELA Burroughs.
--- NOTE | 2019-02-11 07:37 | NUR ---
NURSE NOTES: Patient received in stable condition, alert and oriented. Responds appropriately. Breathing unlabored with nasal cannula on at 2L/min. 2 MARQUEZ drains observed with reported minimal output. PICC line patent and intact. Abdominal dressing intact. HOB elevated, bed locked in lowest position. Call light placed within reach, will continue to monitor.
[2019-02-11 08:00] VITALS: BP 119/69
[2019-02-11] MEDS: DULoxetine 30mg cap ORAL SCH (08:58)
[2019-02-11] MEDS: Miconazole 2% Cream 30gm TOPIC SCH ×2 (09:00→22:15)
[2019-02-11 12:00] VITALS: BP 129/72
--- NOTE | 2019-02-11 12:12 | Infectious Diseases Prog Note ---
Assessment/Plan Assessment/Plan Assessment: 02/01 SP Panniculectomy VDRF (post-op)- s/p extubation 02/02 Low grade fever x1 Mild leukocytosis- likely post op- resolved -02/01 CXR: Mild interstitial congestive changes persist, stable sp cx normal resp wesley (prelim) R groin swelling and pain- 2ry from Volume overload Sandy intertrigo; improving B/l Leg cellulitis and panniculitis - in the setting of chronic venous stasis, s /p Rx Active infectious cellulitis essentially resolved. Now he has chronic venous stasis and neuropathic pain with poorly healing wounds. Alot off this is due to the severe swelling in his feet but also he is poorly compliant with wound care instructions. Afebrile No leukocytosis Recent seizure episode -had L side weakness and spasticity CVA HTN bipolar disorder w/ psychotic features tobacco abuse anxiety disorder chronic pain CHF seizure disorder COPD morbid obesity Dm2 HTN SNF resident Plan: -Continue to monitor off abx -02/08 SP IV Vancomycin #8 -02/04 SP Aztreonam #4 -01/26 SP Fluconzole #5 - 01/07/19 SP IV Dapto d# 14 - 01/06/19 S/P Levofloxacin # - 12/25 sp Bactrim #/ and add IV Ancef #3/ for cellulitis - Monitor CBC/CMP, temperatures - aspiration precautions - wound care per hospital protocol -plastic sx, Gen sx f/u -f/ucx Subjective Allergies: Coded Allergies: ASPIRIN (Verified Allergy, Unknown, 07/14/18) KETOROLAC (Verified Allergy, Unknown, 07/14/18) PENICILLINS (Verified Allergy, Unknown, 12/23/18) tolerated Ancef on 08/2018 Subjective afebrile no leukocytosis Bcx Neg Objective Vital Signs Last 24 Hour Vital Signs Date Time Temp Pulse Resp B/P (MAP) Pulse Ox O2 Delivery O2 Flow Rate FiO2 02/11/19 09:00 Nasal Cannula 2.0 02/11/19 08:58 82 119/69 02/11/19 08:00 99.1 82 20 119/69 (86) 97 02/10/19 21:00 Nasal Cannula 2.0 02/10/19 20:00 97 Nasal Cannula 2.0 28 02/10/19 20:00 98.2 74 16 144/74 (97) 98 02/10/19 18:51 98.3 02/10/19 16:00 98.1 62 16 138/68 (91) 95 Height (Feet): 6 Height (Inches): 0.00 Weight (Pounds): 418 Objective General Appearance: alert, moderate distress, obese Head: atraumatic Eyes: bilateral eye normal inspection ENT: normal ENT inspection, hearing grossly normal, normal voice Neck: normal inspection, full range of motion, supple, no bony tend Respiratory: normal inspection, lungs clear, normal breath sounds, no respiratory distress, no retraction, no wheezing Cardiovascular #1: regular rate, rhythm Gastrointestinal: normal inspection, normal bowel sounds, soft, no guarding, no hernia, other - Left lower abdominal area Genitourinary: other - Swollen groin edematous erythematous enlarged scrotum Musculoskeletal: normal inspection, back normal, normal range of motion Neurologic: normal inspection, alert, responsive, speech normal Psychiatric: depressed affect, anxious Skin: normal inspection, normal color, no rash Laboratory Tests Test 02/11/19 06:08 White Blood Count 6.5 K/UL (4.8-10.8) Red Blood Count 2.81 M/UL (4.70-6.10) L Hemoglobin 8.3 G/DL (14.2-18.0) L Hematocrit 26.5 % (42.0-52.0) L Mean Corpuscular Volume 94 FL (80-99) Mean Corpuscular Hemoglobin 29.5 PG (27.0-31.0) Mean Corpuscular Hemoglobin Concent 31.2 G/DL (32.0-36.0) L Red Cell Distribution Width 13.9 % (11.6-14.8) Platelet Count 305 K/UL (150-450) Mean Platelet Volume 4.3 FL (6.5-10.1) L Neutrophils (%) (Auto) 57.2 % (45.0-75.0) Lymphocytes (%) (Auto) 26.6 % (20.0-45.0) Monocytes (%) (Auto) 8.5 % (1.0-10.0) Eosinophils (%) (Auto) 7.0 % (0.0-3.0) H Basophils (%) (Auto) 0.8 % (0.0-2.0) Sodium Level 144 MMOL/L (136-145) Potassium Level 4.6 MMOL/L (3.5-5.1) Chloride Level 106 MMOL/L (98-107) Carbon Dioxide Level 40 MMOL/L (21-32) H Anion Gap -2 mmol/L (5-15) L Blood Urea Nitrogen 13 mg/dL (7-18) Creatinine 0.8 MG/DL (0.55-1.30) Estimat Glomerular Filtration Rate > 60 mL/min (>60) Glucose Level 98 MG/DL (74-106) Calcium Level 9.0 MG/DL (8.5-10.1) Current Medications Medications (Trade) Dose Ordered Sig/Luis Route PRN Reason Start Time Stop Time Status Last Admin Dose Admin Acetaminophen (Tylenol) 650 mg Q4H PRN ORAL T>100.5 02/06/19 12:30 03/08/19 12:24 Amlodipine Besylate (Norvasc) 5 mg DAILY ORAL 02/07/19 09:00 02/22/19 08:59 02/11/19 08:58 Chlorhexidine Gluconate (Ruby-Hex 2%) 1 applic DAILY@1999 TOPIC 02/06/19 20:00 02/26/19 19:59 02/10/19 21:34 Dextrose (Dextrose 50%) 25 ml Q30M PRN IV Hypoglycemia 02/06/19 12:30 02/21/19 10:59 Dextrose (Dextrose 50%) 50 ml Q30M PRN IV hypoglycemia 02/06/19 12:30 02/21/19 10:59 Duloxetine HCl (Cymbalta) 30 mg DAILY ORAL 02/07/19 09:00 02/22/19 08:59 02/11/19 08:58 Fentanyl (Duragesic) 1 patch Q72H TDERMAL 02/11/19 13:30 02/18/19 13:29 Fentanyl (Duragesic) 2 patch Q72H TDERMAL 02/08/19 13:30 02/11/19 13:29 02/08/19 13:26 Hydromorphone HCl (Dilaudid) 1 mg Q3H PRN IV SEVERE BREAKTHRU PAIN (7-10) 02/10/19 11:42 02/17/19 11:41 02/11/19 09:32 Levetiracetam (Keppra) 1,000 mg Q8HR ORAL 02/06/19 14:00 02/21/19 13:59 02/11/19 06:30 Lorazepam (Ativan 2mg/ml 1ml) 2 mg Q4H PRN IV For Anxiety 02/06/19 12:28 02/13/19 12:27 Methadone HCl (Methadone HCl) 10 mg Q6H PRN ORAL MODERATE BREAKTHROUGH PAIN 02/08/19 12:45 02/13/19 12:27 02/08/19 22:33 Miconazole Nitrate (Miconazole Nitrate) 1 applic Q12HR TOPIC 02/06/19 21:00 03/05/19 20:59 02/11/19 09:00 Miscellaneous Medication (fentaNYL Destruction) 1 ea Q72H MISC 02/14/19 13:30 03/16/19 13:29 Miscellaneous Medication (fentaNYL Destruction) 2 ea Q72H MISC 02/11/19 13:30 02/11/19 14:30 Naloxone HCl (Narcan) 0.1 mg PRN IV Sedation scale 3 or 4 02/06/19 12:30 04/04/19 11:59 Ondansetron HCl (Zofran) 4 mg Q6H PRN IVP Nausea & Vomiting 02/06/19 12:28 03/08/19 12:27 Pantoprazole (Protonix) 40 mg ACBREAKFAST ORAL 02/11/19 06:30 03/13/19 06:29 02/11/19 06:30 Alexa Patterson M.D. Feb 11, 2019 12:12
[2019-02-11] MEDS ORDERED: fentaNYL Destruction MISC SCH ×2 (12:30→13:30)
--- NOTE | 2019-02-11 14:36 | General Progress Note ---
Assessment/Plan Problem List: (1) Seizures ICD Codes: R56.9 - Unspecified convulsions SNOMED: 36990351 (2) Cerebrovascular accident ICD Codes: I63.9 - Cerebral infarction, unspecified SNOMED: 211171626 (3) Peripheral edema ICD Codes: R60.9 - Edema, unspecified SNOMED: 239008764 (4) Cellulitis of groin, left ICD Codes: L03.314 - Cellulitis of groin SNOMED: 14333151 (5) Cellulitis ICD Codes: L03.90 - Cellulitis, unspecified SNOMED: 435094080 (6) COPD (chronic obstructive pulmonary disease) ICD Codes: J44.9 - Chronic obstructive pulmonary disease, unspecified SNOMED: 05348951 (7) Morbid obesity ICD Codes: E66.01 - Morbid (severe) obesity due to excess calories SNOMED: 447516310 (8) Abdominal pannus ICD Codes: E65 - Localized adiposity SNOMED: 1551778117895 (9) Abdominal wall cellulitis ICD Codes: L03.311 - Cellulitis of abdominal wall SNOMED: 65182768 (10) UTI (urinary tract infection) ICD Codes: N39.0 - Urinary tract infection, site not specified SNOMED: 05753907 Status: stable, progressing Assessment/Plan: o2 pulm tx abx pt diet cbc bmp am dc plan snf Subjective Constitutional: Reports: weakness Allergies: Coded Allergies: ASPIRIN (Verified Allergy, Unknown, 07/14/18) KETOROLAC (Verified Allergy, Unknown, 07/14/18) PENICILLINS (Verified Allergy, Unknown, 12/23/18) tolerated Ancef on 08/2018 All Systems: reviewed and negative except above Subjective o2nc sleepy calm Objective Last 24 Hour Vital Signs Date Time Temp Pulse Resp B/P (MAP) Pulse Ox O2 Delivery O2 Flow Rate FiO2 02/11/19 12:00 98.9 85 20 129/72 (91) 97 02/11/19 09:00 Nasal Cannula 2.0 02/11/19 08:58 82 119/69 02/11/19 08:00 99.1 82 20 119/69 (86) 97 02/10/19 21:00 Nasal Cannula 2.0 02/10/19 20:00 97 Nasal Cannula 2.0 28 02/10/19 20:00 98.2 74 16 144/74 (97) 98 7/17/19 18:51 98.3 02/10/19 16:00 98.1 62 16 138/68 (91) 95 Intake and Output 02/10/19 02/11/19 19:00 07:00 Intake Total 800 ml Output Total 500 ml 1130 ml Balance -500 ml -330 ml Intake Oral 800 ml Output Urine Total 500 ml 1100 ml Drainage Total 30 ml Laboratory Tests 02/11/19 06:08: White Blood Count 6.5, Red Blood Count 2.81L, Hemoglobin 8.3L, Hematocrit 26.5L , Mean Corpuscular Volume 94, Mean Corpuscular Hemoglobin 29.5, Mean Corpuscular Hemoglobin Concent 31.2L, Red Cell Distribution Width 13.9, Platelet Count 305, Mean Platelet Volume 4.3L, Neutrophils (%) (Auto) 57.2, Lymphocytes (%) (Auto) 26.6, Monocytes (%) (Auto) 8.5, Eosinophils (%) (Auto) 7.0H, Basophils (%) (Auto) 0.8, Sodium Level 144, Potassium Level 4.6, Chloride Level 106, Carbon Dioxide Level 40H, Anion Gap -2L, Blood Urea Nitrogen 13, Creatinine 0.8, Estimat Glomerular Filtration Rate > 60, Glucose Level 98, Calcium Level 9.0 Height (Feet): 6 Height (Inches): 0.00 Weight (Pounds): 418 General Appearance: lethargic EENT: normal ENT inspection Neck: normal alignment Cardiovascular: normal peripheral pulses, normal rate, regular rhythm Respiratory/Chest: chest wall non-tender, lungs clear, normal breath sounds Abdomen: soft, hypoactive bowel sounds Extremities: normal inspection Edema: 1+ Arm (L), 1+ Arm (R), 1+ Leg (L), 1+ Leg (R), 1+ Pedal (L), 1+ Pedal ( R), 1+ Generalized Edema: trace edema Neurologic: responsive, motor weakness Skin: normal pigmentation, warm/dry Objective abd dressing c&Ernesto Garcia DO Feb 11, 2019 14:36
--- NOTE | 2019-02-11 15:59 | Surgery Progress Note ---
Surgery Progress Note Subjective Symptoms: improved, tolerating diet, voiding well, passing flatus, BM Objective Last 24 Hour Vital Signs Date Time Temp Pulse Resp B/P (MAP) Pulse Ox O2 Delivery O2 Flow Rate FiO2 02/11/19 12:00 98.9 85 20 129/72 (91) 97 02/11/19 09:00 Nasal Cannula 2.0 02/11/19 08:58 82 119/69 02/11/19 08:00 99.1 82 20 119/69 (86) 97 02/10/19 21:00 Nasal Cannula 2.0 02/10/19 20:00 97 Nasal Cannula 2.0 28 02/10/19 20:00 98.2 74 16 144/74 (97) 98 02/10/19 18:51 98.3 02/10/19 16:00 98.1 62 16 138/68 (91) 95 I&O Intake and Output 02/10/19 02/11/19 19:00 07:00 Intake Total 800 ml Output Total 500 ml 1130 ml Balance -500 ml -330 ml Intake Oral 800 ml Output Urine Total 500 ml 1100 ml Drainage Total 30 ml Dressing: saturated Wound: clean Drains: lisbet Cardiovascular: RSR Respiratory: clear, decreased breath sounds Abdomen: soft, present bowel sounds, non-distended Extremities: no tenderness, no cyanosis Laboratory Tests Test 02/11/19 06:08 White Blood Count 6.5 K/UL (4.8-10.8) Red Blood Count 2.81 M/UL (4.70-6.10) L Hemoglobin 8.3 G/DL (14.2-18.0) L Hematocrit 26.5 % (42.0-52.0) L Mean Corpuscular Volume 94 FL (80-99) Mean Corpuscular Hemoglobin 29.5 PG (27.0-31.0) Mean Corpuscular Hemoglobin Concent 31.2 G/DL (32.0-36.0) L Red Cell Distribution Width 13.9 % (11.6-14.8) Platelet Count 305 K/UL (150-450) Mean Platelet Volume 4.3 FL (6.5-10.1) L Neutrophils (%) (Auto) 57.2 % (45.0-75.0) Lymphocytes (%) (Auto) 26.6 % (20.0-45.0) Monocytes (%) (Auto) 8.5 % (1.0-10.0) Eosinophils (%) (Auto) 7.0 % (0.0-3.0) H Basophils (%) (Auto) 0.8 % (0.0-2.0) Sodium Level 144 MMOL/L (136-145) Potassium Level 4.6 MMOL/L (3.5-5.1) Chloride Level 106 MMOL/L (98-107) Carbon Dioxide Level 40 MMOL/L (21-32) H Anion Gap -2 mmol/L (5-15) L Blood Urea Nitrogen 13 mg/dL (7-18) Creatinine 0.8 MG/DL (0.55-1.30) Estimat Glomerular Filtration Rate > 60 mL/min (>60) Glucose Level 98 MG/DL (74-106) Calcium Level 9.0 MG/DL (8.5-10.1) Plan Problems: (1) Cellulitis of groin, left (2) Cellulitis Assessment & Plan: chronic cellulitis of pannus s/p panniculectomy now extubated and recovering pain controlled Doing well post op. Patient not to ambulate or lay flat as this would put too much tension on the incision. Ok to do PT in bed. dressings changed wound stable will monitor okay for diet -iv abx -drain care -keep lindsey in place dressing changes -AM labs will follow with recs (3) COPD (chronic obstructive pulmonary disease) (4) Morbid obesity (5) Lumbar spondylosis (6) Right heart failure (7) ADALBERTO (obstructive sleep apnea) (8) Abdominal pannus (9) Seizures (10) Cerebrovascular accident (11) Peripheral edema (12) Abdominal wall cellulitis (13) UTI (urinary tract infection) (14) Hyponatremia (15) Uncontrolled seizures (16) Knee osteomyelits, right Gt Fernandez Feb 11, 2019 15:59
[2019-02-11 16:00] VITALS: BP 132/66
--- NOTE | 2019-02-11 16:59 | Pulmonology Progress Note ---
Assessment/Plan Problems: (1) Abdominal pannus (2) COPD (chronic obstructive pulmonary disease) (3) ADALBERTO (obstructive sleep apnea) (4) Right heart failure (5) Lumbar spondylosis (6) Morbid obesity Assessment/Plan no fever or leukocytosis decrease Dilaudid to 2 mg needs to be on low calorie diet, increase Fentanyl patch to 100 labs in am symptomatic treatment decrease dilaudid to -.5 mg q 3 hours. dvt prophylaxis. doing better Subjective ROS Limited/Unobtainable: No Constitutional: Reports: no symptoms HEENT: Repors: no symptoms Respiratory: Reports: no symptoms Cardiovascular: Reports: no symptoms Allergies: Coded Allergies: ASPIRIN (Verified Allergy, Unknown, 07/14/18) KETOROLAC (Verified Allergy, Unknown, 07/14/18) PENICILLINS (Verified Allergy, Unknown, 12/23/18) tolerated Ancef on 08/2018 Objective Last 24 Hour Vital Signs Date Time Temp Pulse Resp B/P (MAP) Pulse Ox O2 Delivery O2 Flow Rate FiO2 02/11/19 12:00 98.9 85 20 129/72 (91) 97 02/11/19 09:00 Nasal Cannula 2.0 02/11/19 08:58 82 119/69 02/11/19 08:00 99.1 82 20 119/69 (86) 97 02/10/19 21:00 Nasal Cannula 2.0 02/10/19 20:00 97 Nasal Cannula 2.0 28 02/10/19 20:00 98.2 74 16 144/74 (97) 98 02/10/19 18:51 98.3 Intake and Output 02/10/19 02/11/19 19:00 07:00 Intake Total 800 ml Output Total 500 ml 1130 ml Balance -500 ml -330 ml Intake Oral 800 ml Output Urine Total 500 ml 1100 ml Drainage Total 30 ml Objective General Appearance: WD/WN HEENT: normocephalic Respiratory/Chest: chest wall non-tender,decreased breath sounds Cardiovascular: normal peripheral pulses, normal rate Abdomen: normal bowel sounds, soft, massive fat amount Genitourinary: swollen testicles, Extremities: extreme edema Laboratory Tests 02/11/19 06:08: White Blood Count 6.5, Red Blood Count 2.81L, Hemoglobin 8.3L, Hematocrit 26.5L , Mean Corpuscular Volume 94, Mean Corpuscular Hemoglobin 29.5, Mean Corpuscular Hemoglobin Concent 31.2L, Red Cell Distribution Width 13.9, Platelet Count 305, Mean Platelet Volume 4.3L, Neutrophils (%) (Auto) 57.2, Lymphocytes (%) (Auto) 26.6, Monocytes (%) (Auto) 8.5, Eosinophils (%) (Auto) 7.0H, Basophils (%) (Auto) 0.8, Sodium Level 144, Potassium Level 4.6, Chloride Level 106, Carbon Dioxide Level 40H, Anion Gap -2L, Blood Urea Nitrogen 13, Creatinine 0.8, Estimat Glomerular Filtration Rate > 60, Glucose Level 98, Calcium Level 9.0 Current Medications Medications (Trade) Dose Ordered Sig/Luis Route PRN Reason Start Time Stop Time Status Last Admin Dose Admin Acetaminophen (Tylenol) 650 mg Q4H PRN ORAL T>100.5 02/06/19 12:30 03/08/19 12:24 Amlodipine Besylate (Norvasc) 5 mg DAILY ORAL 02/07/19 09:00 02/22/19 08:59 02/11/19 08:58 Chlorhexidine Gluconate (Ruby-Hex 2%) 1 applic DAILY@1999 TOPIC 02/06/19 20:00 02/26/19 19:59 02/10/19 21:34 Dextrose (Dextrose 50%) 25 ml Q30M PRN IV Hypoglycemia 02/06/19 12:30 02/21/19 10:59 Dextrose (Dextrose 50%) 50 ml Q30M PRN IV hypoglycemia 02/06/19 12:30 02/21/19 10:59 Duloxetine HCl (Cymbalta) 30 mg DAILY ORAL 02/07/19 09:00 02/22/19 08:59 02/11/19 08:58 Fentanyl (Duragesic) 1 patch Q72H TDERMAL 02/11/19 13:30 02/18/19 13:29 02/11/19 13:32 Hydromorphone HCl (Dilaudid) 1 mg Q3H PRN IV SEVERE BREAKTHRU PAIN (7-10) 02/10/19 11:42 02/17/19 11:41 02/11/19 15:32 Levetiracetam (Keppra) 1,000 mg Q8HR ORAL 02/06/19 14:00 02/21/19 13:59 02/11/19 14:23 Lorazepam (Ativan 2mg/ml 1ml) 2 mg Q4H PRN IV For Anxiety 02/06/19 12:28 02/13/19 12:27 Methadone HCl (Methadone HCl) 10 mg Q6H PRN ORAL MODERATE BREAKTHROUGH PAIN 02/08/19 12:45 02/13/19 12:27 02/08/19 22:33 Miconazole Nitrate (Miconazole Nitrate) 1 applic Q12HR TOPIC 02/06/19 21:00 03/05/19 20:59 02/11/19 09:00 Miscellaneous Medication (fentaNYL Destruction) 1 ea Q72H MISC 02/14/19 13:30 03/16/19 13:29 Naloxone HCl (Narcan) 0.1 mg PRN IV Sedation scale 3 or 4 02/06/19 12:30 04/04/19 11:59 Ondansetron HCl (Zofran) 4 mg Q6H PRN IVP Nausea & Vomiting 02/06/19 12:28 03/08/19 12:27 Pantoprazole (Protonix) 40 mg ACBREAKFAST ORAL 02/11/19 06:30 03/13/19 06:29 02/11/19 06:30 Bill Dixon MD Feb 11, 2019 16:59
--- NOTE | 2019-02-11 17:00 | Progress Note ---
DATE: 02/11/2019 SUBJECTIVE: This is a 53-year-old male with cellulitis, anxiety, depression and some irritability. That is why his attending has requested daily psychiatric consultation. MENTAL STATUS EXAMINATION: This is a 53-year-old male. Appearance is disheveled. Attitude, irritable and agitated. Affect, guarded and restricted. Intellect, poor. Mood, depressed and anxious. Motor activity, psychomotor agitation. Attention span is poor. Insight and judgment is poor. DIAGNOSIS: Major depressive disorder, mild, recurrent, rule out generalized anxiety disorder. PLAN: Treat him with Cymbalta 30 mg daily. 20 minutes of cognitive behavioral therapy to help him identify his automatic negative thoughts and help convert negative thoughts to more positive thoughts to reduce depression, anxiety, and mood lability. Chart reviewed. Discussed with staff. Seen and assessed in his room. Laney Mcghee M.D. DR: SHANEKA JOB#: [id number] CC:
--- NOTE | 2019-02-11 17:17 | NUR ---
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
--- NOTE | 2019-02-11 17:21 | NUR ---
DISCHARGE PLANNING FAXED REFERRAL TO [facility] [phone], THEY CANT ACCEPT PT BECAUSE OF THE MEDICAL.
--- NOTE | 2019-02-11 17:33 | Cardiac Electrophysiology PN ---
Assessment/Plan Assessment/Plan 1. Hypertension. On amlodipine 5 daily . EF 60% 2. Severe bilateral lower extremity edema and cellulitis. On abx per Dr. Patterson. 3. Abdominal pannus. S/P Resection of pannus 02/01/19 Has 2 MARQUEZ drains with minimal drainage 4. COPD and ADALBERTO. 5. S/P Resp failure, extubated 6. Right heart failure. 7. Lumbar spondylosis. 8. Morbid obesity. 9. Anemia S/P PRBC DW bread dumper to LTAC pending Subjective Subjective No CP or SOB. No events. S/P transfusion yesterday. Transfer to LTAC pending Objective Last 24 Hour Vital Signs Date Time Temp Pulse Resp B/P (MAP) Pulse Ox O2 Delivery O2 Flow Rate FiO2 02/11/19 16:00 98.9 66 20 132/66 (88) 97 02/11/19 12:00 98.9 85 20 129/72 (91) 97 02/11/19 09:00 Nasal Cannula 2.0 02/11/19 08:58 82 119/69 02/11/19 08:00 99.1 82 20 119/69 (86) 97 02/10/19 21:00 Nasal Cannula 2.0 02/10/19 20:00 97 Nasal Cannula 2.0 28 02/10/19 20:00 98.2 74 16 144/74 (97) 98 02/10/19 18:51 98.3 Intake and Output 02/10/19 02/11/19 19:00 07:00 Intake Total 800 ml Output Total 500 ml 1130 ml Balance -500 ml -330 ml Intake Oral 800 ml Output Urine Total 500 ml 1100 ml Drainage Total 30 ml Laboratory Tests Test 02/11/19 06:08 White Blood Count 6.5 K/UL (4.8-10.8) Red Blood Count 2.81 M/UL (4.70-6.10) L Hemoglobin 8.3 G/DL (14.2-18.0) L Hematocrit 26.5 % (42.0-52.0) L Mean Corpuscular Volume 94 FL (80-99) Mean Corpuscular Hemoglobin 29.5 PG (27.0-31.0) Mean Corpuscular Hemoglobin Concent 31.2 G/DL (32.0-36.0) L Red Cell Distribution Width 13.9 % (11.6-14.8) Platelet Count 305 K/UL (150-450) Mean Platelet Volume 4.3 FL (6.5-10.1) L Neutrophils (%) (Auto) 57.2 % (45.0-75.0) Lymphocytes (%) (Auto) 26.6 % (20.0-45.0) Monocytes (%) (Auto) 8.5 % (1.0-10.0) Eosinophils (%) (Auto) 7.0 % (0.0-3.0) H Basophils (%) (Auto) 0.8 % (0.0-2.0) Sodium Level 144 MMOL/L (136-145) Potassium Level 4.6 MMOL/L (3.5-5.1) Chloride Level 106 MMOL/L (98-107) Carbon Dioxide Level 40 MMOL/L (21-32) H Anion Gap -2 mmol/L (5-15) L Blood Urea Nitrogen 13 mg/dL (7-18) Creatinine 0.8 MG/DL (0.55-1.30) Estimat Glomerular Filtration Rate > 60 mL/min (>60) Glucose Level 98 MG/DL (74-106) Calcium Level 9.0 MG/DL (8.5-10.1) Objective HEAD AND NECK: No JVD. LUNGS: Clear. CARDIOVASCULAR: Regular S1 and S2 with no gallop or murmur. ABDOMEN: Very swollen, erythematous, and enlarged scrotum. S/P abdominal surgery with drains EXTREMITIES: 2+ pitting edema and cellulitis of the legs. Carlos Yee MD Feb 11, 2019 17:33
--- NOTE | 2019-02-11 19:47 | NUR ---
HAND-OFF: Report given to Benedicto HINOJOSA.
[2019-02-11 20:00] VITALS: BP 130/65
--- NOTE | 2019-02-11 21:00 | NUR ---
NURSE NOTES: Pt is in bed, awake and alert. No acute distress noted. Vitals stable. Wound dressing dry and intact. Pt repositioned. Pain medication given as ordered PRN. Both lumen of PICC line flushed. Pt is given a sandwich per request. Pt instructed to call for assistance before getting out of bed. Bed locked low in position,side rails up and call light within reach. Pires cath draining yellow urine. Pt's scrotum is still swollen.
[2019-02-11] MEDS: Dyna-Hex 2% Top Sol 2oz TOPIC SCH (22:15)
[2019-02-12] VITALS: BP 143/67
--- NOTE | 2019-02-12 01:24 | NUR ---
NURSE NOTES: Wound dressing changed bilat lower extremity, pt tolerated well.
[2019-02-12 04:00] VITALS: BP 118/68
[2019-02-12] MEDS: levETIRAcetam 500mg/5ml Liquid ORAL SCH ×3 (04:15→21:29)
[2019-02-12 06:28] LABS: BASOPHILS % (AUTO) 0.8 % (0.0-2.0); HEMATOCRIT 27.2 % (42.0-52.0); HEMOGLOBIN 8.6 G/DL (14.2-18.0); LYMPHOCYTES % (AUTO) 26.2 % (20.0-45.0); MEAN CORPUSCULAR VOLUME 94 FL (80-99); MONOCYTES % (AUTO) 7.2 % (1.0-10.0); NEUTROPHILS % (AUTO) 59.9 % (45.0-75.0); PLATELET COUNT 319 K/UL (150-450); RED BLOOD COUNT 2.91 M/UL (4.70-6.10); RED CELL DISTRIBUTION WIDTH 13.5 % (11.6-14.8); WHITE BLOOD COUNT 6.9 K/UL (4.8-10.8)
[2019-02-12 06:48] LABS: ANION GAP 1 mmol/L (5-15); BLOOD UREA NITROGEN 15 mg/dL (7-18); CALCIUM 8.8 MG/DL (8.5-10.1); CARBON DIOXIDE 37 MMOL/L (21-32); CHLORIDE 104 MMOL/L (98-107); CREATININE 0.9 MG/DL (0.55-1.30); POTASSIUM 4.5 MMOL/L (3.5-5.1); SODIUM 142 MMOL/L (136-145)
--- NOTE | 2019-02-12 07:00 | NUR ---
HAND-OFF: Report given to MICAELA Burroughs.
--- NOTE | 2019-02-12 07:15 | NUR ---
NURSE NOTES: Patient received in stable condition, alert and oriented. Responds appropriately. Breathing unlabored with nasal cannula. Denies respiratory distress, complaining of pain at this time. HOB is remained elevated. Dressings intact. PICC line on left upper arm, clean and dry, saline locked. 2 MARQUEZ Drains bilaterally intact with minimal red drainage. Call light placed in patient's hand. Bed locked. Will continue to monitor.
[2019-02-12 08:00] VITALS: BP 110/68
[2019-02-12] MEDS: DULoxetine 30mg cap ORAL SCH (08:16)
[2019-02-12] MEDS: Miconazole 2% Cream 30gm TOPIC SCH ×3 (08:17→21:30)
--- NOTE | 2019-02-12 08:31 | General Progress Note ---
Assessment/Plan Problem List: (1) Seizures ICD Codes: R56.9 - Unspecified convulsions SNOMED: 68055781 (2) Cerebrovascular accident ICD Codes: I63.9 - Cerebral infarction, unspecified SNOMED: 133272867 (3) Peripheral edema ICD Codes: R60.9 - Edema, unspecified SNOMED: 685147016 (4) Cellulitis of groin, left ICD Codes: L03.314 - Cellulitis of groin SNOMED: 08666464 (5) Cellulitis ICD Codes: L03.90 - Cellulitis, unspecified SNOMED: 844529512 (6) COPD (chronic obstructive pulmonary disease) ICD Codes: J44.9 - Chronic obstructive pulmonary disease, unspecified SNOMED: 00073596 (7) Morbid obesity ICD Codes: E66.01 - Morbid (severe) obesity due to excess calories SNOMED: 211555702 (8) Abdominal pannus ICD Codes: E65 - Localized adiposity SNOMED: 3283009110954 (9) Abdominal wall cellulitis ICD Codes: L03.311 - Cellulitis of abdominal wall SNOMED: 63063720 (10) UTI (urinary tract infection) ICD Codes: N39.0 - Urinary tract infection, site not specified SNOMED: 27733833 Status: stable, progressing Assessment/Plan: o2 pulm tx abx pt diet cbc bmp am dc plan snf Subjective Constitutional: Reports: weakness Allergies: Coded Allergies: ASPIRIN (Verified Allergy, Unknown, 07/14/18) KETOROLAC (Verified Allergy, Unknown, 07/14/18) PENICILLINS (Verified Allergy, Unknown, 12/23/18) tolerated Ancef on 08/2018 All Systems: reviewed and negative except above Subjective o2nc sleepy calm Objective Last 24 Hour Vital Signs Date Time Temp Pulse Resp B/P (MAP) Pulse Ox O2 Delivery O2 Flow Rate FiO2 02/12/19 08:16 67 118/68 02/12/19 04:00 98.2 67 18 118/68 (85) 97 02/12/19 00:00 99.6 74 18 143/67 (92) 98 02/11/19 21:00 Nasal Cannula 2.0 02/11/19 20:52 97 Nasal Cannula 2.0 28 02/11/19 20:00 98.1 67 18 130/65 (86) 98 02/11/19 16:00 98.9 66 20 132/66 (88) 97 02/11/19 12:00 98.9 85 20 129/72 (91) 97 02/11/19 09:00 Nasal Cannula 2.0 02/11/19 08:58 82 119/69 Intake and Output 02/11/19 02/12/19 19:00 07:00 Intake Total 800 ml 480 ml Output Total 1185 ml 1550 ml Balance -385 ml -1070 ml Intake Oral 800 ml 480 ml Output Urine Total 1160 ml 1550 ml Drainage Total 25 ml # Bowel Movements 1 1 Laboratory Tests 02/12/19 06:10: White Blood Count 6.9, Red Blood Count 2.91L, Hemoglobin 8.6L, Hematocrit 27.2L , Mean Corpuscular Volume 94, Mean Corpuscular Hemoglobin 29.6, Mean Corpuscular Hemoglobin Concent 31.6L, Red Cell Distribution Width 13.5, Platelet Count 319, Mean Platelet Volume 4.4L, Neutrophils (%) (Auto) 59.9, Lymphocytes (%) (Auto) 26.2, Monocytes (%) (Auto) 7.2, Eosinophils (%) (Auto) 6.0H, Basophils (%) (Auto) 0.8, Sodium Level 142, Potassium Level 4.5, Chloride Level 104, Carbon Dioxide Level 37H, Anion Gap 1L, Blood Urea Nitrogen 15, Creatinine 0.9, Estimat Glomerular Filtration Rate > 60, Glucose Level 94, Calcium Level 8.8 Height (Feet): 6 Height (Inches): 0.00 Weight (Pounds): 418 General Appearance: lethargic EENT: normal ENT inspection Neck: normal alignment Cardiovascular: normal peripheral pulses, normal rate, regular rhythm Respiratory/Chest: chest wall non-tender, lungs clear, normal breath sounds Abdomen: soft, decreased bowel sounds Extremities: normal inspection Edema: 1+ Arm (L), 1+ Arm (R), 1+ Leg (L), 1+ Leg (R), 1+ Pedal (L), 1+ Pedal ( R), 1+ Generalized Edema: trace edema Neurologic: motor weakness Skin: normal pigmentation, warm/dry Objective abd dressing c&d Octavio Nicoledamien Garsia Feb 12, 2019 08:31
[2019-02-12 12:00] VITALS: BP 110/63
[2019-02-12] MEDS: DiphenhydrAMINE 50mg/ml Inj IVP PRN ×2 (12:19→22:40)
--- NOTE | 2019-02-12 14:14 | Pulmonology Progress Note ---
Assessment/Plan Problems: (1) Abdominal pannus (2) COPD (chronic obstructive pulmonary disease) (3) ADALBERTO (obstructive sleep apnea) (4) Right heart failure (5) Lumbar spondylosis (6) Morbid obesity Assessment/Plan no fever or leukocytosis decrease Dilaudid to 2 mg needs to be on low calorie diet, increase Fentanyl patch to 100 labs in am symptomatic treatment decrease dilaudid to -.5 mg q 3 hours. dvt prophylaxis. doing better Subjective ROS Limited/Unobtainable: No Constitutional: Reports: no symptoms HEENT: Repors: no symptoms Allergies: Coded Allergies: ASPIRIN (Verified Allergy, Unknown, 07/14/18) KETOROLAC (Verified Allergy, Unknown, 07/14/18) PENICILLINS (Verified Allergy, Unknown, 12/23/18) tolerated Ancef on 08/2018 Objective Last 24 Hour Vital Signs Date Time Temp Pulse Resp B/P (MAP) Pulse Ox O2 Delivery O2 Flow Rate FiO2 02/12/19 12:00 98.7 6 20 110/63 (79) 94 02/12/19 09:00 Nasal Cannula 2.0 02/12/19 08:16 67 118/68 02/12/19 08:00 98.5 81 20 110/68 (82) 94 02/12/19 07:55 96 Nasal Cannula 2.0 28 02/12/19 04:00 98.2 67 18 118/68 (85) 97 02/12/19 00:00 99.6 74 18 143/67 (92) 98 02/11/19 21:00 Nasal Cannula 2.0 02/11/19 20:52 97 Nasal Cannula 2.0 28 02/11/19 20:00 98.1 67 18 130/65 (86) 98 02/11/19 16:00 98.9 66 20 132/66 (88) 97 Intake and Output 02/11/19 02/12/19 19:00 07:00 Intake Total 800 ml 480 ml Output Total 1185 ml 1550 ml Balance -385 ml -1070 ml Intake Oral 800 ml 480 ml Output Urine Total 1160 ml 1550 ml Drainage Total 25 ml # Bowel Movements 1 1 Objective General Appearance: WD/WN HEENT: normocephalic Respiratory/Chest: chest wall non-tender,decreased breath sounds Cardiovascular: normal peripheral pulses, normal rate Abdomen: normal bowel sounds, soft, massive fat amount Genitourinary: swollen testicles, Extremities: extreme edema Laboratory Tests 02/12/19 06:10: White Blood Count 6.9, Red Blood Count 2.91L, Hemoglobin 8.6L, Hematocrit 27.2L , Mean Corpuscular Volume 94, Mean Corpuscular Hemoglobin 29.6, Mean Corpuscular Hemoglobin Concent 31.6L, Red Cell Distribution Width 13.5, Platelet Count 319, Mean Platelet Volume 4.4L, Neutrophils (%) (Auto) 59.9, Lymphocytes (%) (Auto) 26.2, Monocytes (%) (Auto) 7.2, Eosinophils (%) (Auto) 6.0H, Basophils (%) (Auto) 0.8, Sodium Level 142, Potassium Level 4.5, Chloride Level 104, Carbon Dioxide Level 37H, Anion Gap 1L, Blood Urea Nitrogen 15, Creatinine 0.9, Estimat Glomerular Filtration Rate > 60, Glucose Level 94, Calcium Level 8.8 Current Medications Medications (Trade) Dose Ordered Sig/Luis Route PRN Reason Start Time Stop Time Status Last Admin Dose Admin Acetaminophen (Tylenol) 650 mg Q4H PRN ORAL T>100.5 02/06/19 12:30 03/08/19 12:24 Amlodipine Besylate (Norvasc) 5 mg DAILY ORAL 02/07/19 09:00 02/22/19 08:59 02/12/19 08:16 Chlorhexidine Gluconate (Ruby-Hex 2%) 1 applic DAILY@2000 TOPIC 02/06/19 20:00 02/26/19 19:59 02/11/19 22:15 Dextrose (Dextrose 50%) 25 ml Q30M PRN IV Hypoglycemia 02/06/19 12:30 02/21/19 10:59 Dextrose (Dextrose 50%) 50 ml Q30M PRN IV hypoglycemia 02/06/19 12:30 02/21/19 10:59 Diphenhydramine HCl (Benadryl) 25 mg Q6H PRN IVP Itching 02/12/19 12:00 03/14/19 11:59 02/12/19 12:19 Duloxetine HCl (Cymbalta) 30 mg DAILY ORAL 02/07/19 09:00 02/22/19 08:59 02/12/19 08:16 Fentanyl (Duragesic) 1 patch Q72H TDERMAL 02/11/19 13:30 02/18/19 13:29 02/11/19 13:32 Hydromorphone HCl (Dilaudid) 0.5 mg Q3H PRN IV SEVERE BREAKTHRU PAIN (7-10) 02/11/19 17:42 02/17/19 11:41 02/12/19 11:43 Levetiracetam (Keppra) 1,000 mg Q8HR ORAL 02/06/19 14:00 02/21/19 13:59 02/12/19 04:15 Lorazepam (Ativan 2mg/ml 1ml) 2 mg Q4H PRN IV For Anxiety 02/06/19 12:28 02/13/19 12:27 Methadone HCl (Methadone HCl) 10 mg Q6H PRN ORAL MODERATE BREAKTHROUGH PAIN 02/08/19 12:45 02/13/19 12:27 02/12/19 08:16 Miconazole Nitrate (Miconazole Nitrate) 1 applic Q12HR TOPIC 02/06/19 21:00 03/05/19 20:59 02/12/19 08:17 Miscellaneous Medication (fentaNYL Destruction) 1 ea Q72H MISC 02/14/19 13:30 03/16/19 13:29 Naloxone HCl (Narcan) 0.1 mg PRN IV Sedation scale 3 or 4 02/06/19 12:30 04/04/19 11:59 Ondansetron HCl (Zofran) 4 mg Q6H PRN IVP Nausea & Vomiting 02/06/19 12:28 03/08/19 12:27 Pantoprazole (Protonix) 40 mg ACBREAKFAST ORAL 02/11/19 06:30 03/13/19 06:29 02/12/19 04:15 Bill Dixon MD Feb 12, 2019 14:14
--- NOTE | 2019-02-12 14:39 | Cardiac Electrophysiology PN ---
Assessment/Plan Assessment/Plan 1. Hypertension. On amlodipine 5 daily . EF 60% 2. Severe bilateral lower extremity edema and cellulitis. On abx per Dr. Patterson. 3. Abdominal pannus. S/P Resection of pannus 02/01/19 Has 2 MARQUEZ drains with drainage 4. COPD and ADALBERTO. 5. S/P Resp failure, extubated 6. Right heart failure. 7. Lumbar spondylosis. 8. Morbid obesity. 9. 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 No events. Transfer to LTAC pending. Both abdominal JPs still draining Objective Last 24 Hour Vital Signs Date Time Temp Pulse Resp B/P (MAP) Pulse Ox O2 Delivery O2 Flow Rate FiO2 02/12/19 12:00 98.7 6 20 110/63 (79) 94 02/12/19 09:00 Nasal Cannula 2.0 02/12/19 08:16 67 118/68 02/12/19 08:00 98.5 81 20 110/68 (82) 94 02/12/19 07:55 96 Nasal Cannula 2.0 28 02/12/19 04:00 98.2 67 18 118/68 (85) 97 02/12/19 00:00 99.6 74 18 143/67 (92) 98 02/11/19 21:00 Nasal Cannula 2.0 02/11/19 20:52 97 Nasal Cannula 2.0 28 02/11/19 20:00 98.1 67 18 130/65 (86) 98 02/11/19 16:00 98.9 66 20 132/66 (88) 97 Intake and Output 02/11/19 02/12/19 19:00 07:00 Intake Total 800 ml 480 ml Output Total 1185 ml 1550 ml Balance -385 ml -1070 ml Intake Oral 800 ml 480 ml Output Urine Total 1160 ml 1550 ml Drainage Total 25 ml # Bowel Movements 1 1 Laboratory Tests Test 02/12/19 06:10 White Blood Count 6.9 K/UL (4.8-10.8) Red Blood Count 2.91 M/UL (4.70-6.10) L Hemoglobin 8.6 G/DL (14.2-18.0) L Hematocrit 27.2 % (42.0-52.0) L Mean Corpuscular Volume 94 FL (80-99) Mean Corpuscular Hemoglobin 29.6 PG (27.0-31.0) Mean Corpuscular Hemoglobin Concent 31.6 G/DL (32.0-36.0) L Red Cell Distribution Width 13.5 % (11.6-14.8) Platelet Count 319 K/UL (150-450) Mean Platelet Volume 4.4 FL (6.5-10.1) L Neutrophils (%) (Auto) 59.9 % (45.0-75.0) Lymphocytes (%) (Auto) 26.2 % (20.0-45.0) Monocytes (%) (Auto) 7.2 % (1.0-10.0) Eosinophils (%) (Auto) 6.0 % (0.0-3.0) H Basophils (%) (Auto) 0.8 % (0.0-2.0) Sodium Level 142 MMOL/L (136-145) Potassium Level 4.5 MMOL/L (3.5-5.1) Chloride Level 104 MMOL/L (98-107) Carbon Dioxide Level 37 MMOL/L (21-32) H Anion Gap 1 mmol/L (5-15) L Blood Urea Nitrogen 15 mg/dL (7-18) Creatinine 0.9 MG/DL (0.55-1.30) Estimat Glomerular Filtration Rate > 60 mL/min (>60) Glucose Level 94 MG/DL (74-106) Calcium Level 8.8 MG/DL (8.5-10.1) Objective HEAD AND NECK: No JVD. LUNGS: Clear. CARDIOVASCULAR: Regular S1 and S2 with no gallop or murmur. ABDOMEN: Very swollen, erythematous, and enlarged scrotum. S/P abdominal surgery with 2 drains. Johnston intact EXTREMITIES: 2+ pitting edema and cellulitis of the legs. Carlos Yee MD Feb 12, 2019 14:39
--- NOTE | 2019-02-12 15:15 | Infectious Diseases Prog Note ---
Assessment/Plan Assessment/Plan Assessment: 02/01 SP Panniculectomy VDRF (post-op)- s/p extubation 02/02 Low grade fever x1 Mild leukocytosis- likely post op- resolved -02/01 CXR: Mild interstitial congestive changes persist, stable sp cx normal resp wesley (prelim) R groin swelling and pain- 2ry from Volume overload Sandy intertrigo; improving B/l Leg cellulitis and panniculitis - in the setting of chronic venous stasis, s /p Rx Active infectious cellulitis essentially resolved. Now he has chronic venous stasis and neuropathic pain with poorly healing wounds. Alot off this is due to the severe swelling in his feet but also he is poorly compliant with wound care instructions. Afebrile No leukocytosis Recent seizure episode -had L side weakness and spasticity CVA HTN bipolar disorder w/ psychotic features tobacco abuse anxiety disorder chronic pain CHF seizure disorder COPD morbid obesity Dm2 HTN SNF resident Plan: -Continue to monitor off abx -02/08 SP IV Vancomycin #8 -02/04 SP Aztreonam #4 -01/26 SP Fluconzole #5 - 01/07/19 SP IV Dapto d# 14 - 01/06/19 S/P Levofloxacin # - 12/25 sp Bactrim #/ and add IV Ancef #3/ for cellulitis - Monitor CBC/CMP, temperatures - aspiration precautions - wound care per hospital protocol -plastic sx, Gen sx f/u Subjective Allergies: Coded Allergies: ASPIRIN (Verified Allergy, Unknown, 07/14/18) KETOROLAC (Verified Allergy, Unknown, 07/14/18) PENICILLINS (Verified Allergy, Unknown, 12/23/18) tolerated Ancef on 08/2018 Subjective afebrile no leukocytosis Objective Vital Signs Last 24 Hour Vital Signs Date Time Temp Pulse Resp B/P (MAP) Pulse Ox O2 Delivery O2 Flow Rate FiO2 02/12/19 12:00 98.7 6 20 110/63 (79) 94 02/12/19 09:00 Nasal Cannula 2.0 02/12/19 08:16 67 118/68 02/12/19 08:00 98.5 81 20 110/68 (82) 94 02/12/19 07:55 96 Nasal Cannula 2.0 28 02/12/19 04:00 98.2 67 18 118/68 (85) 97 02/12/19 00:00 99.6 74 18 143/67 (92) 98 02/11/19 21:00 Nasal Cannula 2.0 02/11/19 20:52 97 Nasal Cannula 2.0 28 02/11/19 20:00 98.1 67 18 130/65 (86) 98 02/11/19 16:00 98.9 66 20 132/66 (88) 97 Height (Feet): 6 Height (Inches): 0.00 Weight (Pounds): 418 Objective General Appearance: alert, moderate distress, obese Head: atraumatic Eyes: bilateral eye normal inspection ENT: normal ENT inspection, hearing grossly normal, normal voice Neck: normal inspection, full range of motion, supple, no bony tend Respiratory: normal inspection, lungs clear, normal breath sounds, no respiratory distress, no retraction, no wheezing Cardiovascular #1: regular rate, rhythm Gastrointestinal: normal inspection, normal bowel sounds, soft, no guarding, no hernia, other - Left lower abdominal area Genitourinary: other - Swollen groin edematous erythematous enlarged scrotum Musculoskeletal: normal inspection, back normal, normal range of motion Neurologic: normal inspection, alert, responsive, speech normal Psychiatric: depressed affect, anxious Skin: normal inspection, normal color, no rash Laboratory Tests Test 02/12/19 06:10 White Blood Count 6.9 K/UL (4.8-10.8) Red Blood Count 2.91 M/UL (4.70-6.10) L Hemoglobin 8.6 G/DL (14.2-18.0) L Hematocrit 27.2 % (42.0-52.0) L Mean Corpuscular Volume 94 FL (80-99) Mean Corpuscular Hemoglobin 29.6 PG (27.0-31.0) Mean Corpuscular Hemoglobin Concent 31.6 G/DL (32.0-36.0) L Red Cell Distribution Width 13.5 % (11.6-14.8) Platelet Count 319 K/UL (150-450) Mean Platelet Volume 4.4 FL (6.5-10.1) L Neutrophils (%) (Auto) 59.9 % (45.0-75.0) Lymphocytes (%) (Auto) 26.2 % (20.0-45.0) Monocytes (%) (Auto) 7.2 % (1.0-10.0) Eosinophils (%) (Auto) 6.0 % (0.0-3.0) H Basophils (%) (Auto) 0.8 % (0.0-2.0) Sodium Level 142 MMOL/L (136-145) Potassium Level 4.5 MMOL/L (3.5-5.1) Chloride Level 104 MMOL/L (98-107) Carbon Dioxide Level 37 MMOL/L (21-32) H Anion Gap 1 mmol/L (5-15) L Blood Urea Nitrogen 15 mg/dL (7-18) Creatinine 0.9 MG/DL (0.55-1.30) Estimat Glomerular Filtration Rate > 60 mL/min (>60) Glucose Level 94 MG/DL (74-106) Calcium Level 8.8 MG/DL (8.5-10.1) Current Medications Medications (Trade) Dose Ordered Sig/Luis Route PRN Reason Start Time Stop Time Status Last Admin Dose Admin Acetaminophen (Tylenol) 650 mg Q4H PRN ORAL T>100.5 02/06/19 12:30 03/08/19 12:24 Amlodipine Besylate (Norvasc) 5 mg DAILY ORAL 02/07/19 09:00 02/22/19 08:59 02/12/19 08:16 Chlorhexidine Gluconate (Ruby-Hex 2%) 1 applic DAILY@2000 TOPIC 02/06/19 20:00 02/26/19 19:59 02/11/19 22:15 Dextrose (Dextrose 50%) 25 ml Q30M PRN IV Hypoglycemia 02/06/19 12:30 02/21/19 10:59 Dextrose (Dextrose 50%) 50 ml Q30M PRN IV hypoglycemia 02/06/19 12:30 02/21/19 10:59 Diphenhydramine HCl (Benadryl) 25 mg Q6H PRN IVP Itching 02/12/19 12:00 03/14/19 11:59 02/12/19 12:19 Duloxetine HCl (Cymbalta) 30 mg DAILY ORAL 02/07/19 09:00 02/22/19 08:59 02/12/19 08:16 Fentanyl (Duragesic) 1 patch Q72H TDERMAL 02/11/19 13:30 02/18/19 13:29 02/11/19 13:32 Hydromorphone HCl (Dilaudid) 0.5 mg Q3H PRN IV SEVERE BREAKTHRU PAIN (7-10) 02/11/19 17:42 02/17/19 11:41 02/12/19 15:02 Levetiracetam (Keppra) 1,000 mg Q8HR ORAL 02/06/19 14:00 02/21/19 13:59 02/12/19 14:43 Lorazepam (Ativan 2mg/ml 1ml) 2 mg Q4H PRN IV For Anxiety 02/06/19 12:28 02/13/19 12:27 Methadone HCl (Methadone HCl) 10 mg Q6H PRN ORAL MODERATE BREAKTHROUGH PAIN 02/08/19 12:45 02/13/19 12:27 02/12/19 08:16 Miconazole Nitrate (Miconazole Nitrate) 1 applic Q12HR TOPIC 02/06/19 21:00 03/05/19 20:59 02/12/19 08:17 Miscellaneous Medication (fentaNYL Destruction) 1 ea Q72H MISC 02/14/19 13:30 03/16/19 13:29 Naloxone HCl (Narcan) 0.1 mg PRN IV Sedation scale 3 or 4 02/06/19 12:30 04/04/19 11:59 Ondansetron HCl (Zofran) 4 mg Q6H PRN IVP Nausea & Vomiting 02/06/19 12:28 03/08/19 12:27 Pantoprazole (Protonix) 40 mg ACBREAKFAST ORAL 02/11/19 06:30 03/13/19 06:29 02/12/19 04:15 Alexa Patterson M.D. Feb 12, 2019 15:15
--- NOTE | 2019-02-12 15:17 | Surgery Progress Note ---
Surgery Progress Note Subjective Additional Comments doing okay pain improved ready to ambulate drains stable with serous output Objective Last 24 Hour Vital Signs Date Time Temp Pulse Resp B/P (MAP) Pulse Ox O2 Delivery O2 Flow Rate FiO2 02/12/19 12:00 98.7 6 20 110/63 (79) 94 02/12/19 09:00 Nasal Cannula 2.0 02/12/19 08:16 67 118/68 02/12/19 08:00 98.5 81 20 110/68 (82) 94 02/12/19 07:55 96 Nasal Cannula 2.0 28 02/12/19 04:00 98.2 67 18 118/68 (85) 97 02/12/19 00:00 99.6 74 18 143/67 (92) 98 02/11/19 21:00 Nasal Cannula 2.0 02/11/19 20:52 97 Nasal Cannula 2.0 28 02/11/19 20:00 98.1 67 18 130/65 (86) 98 02/11/19 16:00 98.9 66 20 132/66 (88) 97 I&O Intake and Output 02/11/19 02/12/19 19:00 07:00 Intake Total 800 ml 480 ml Output Total 1185 ml 1550 ml Balance -385 ml -1070 ml Intake Oral 800 ml 480 ml Output Urine Total 1160 ml 1550 ml Drainage Total 25 ml # Bowel Movements 1 1 Dressing: saturated Wound: clean Drains: lisbet Cardiovascular: RSR Respiratory: clear Abdomen: soft, non-tender, present bowel sounds, other Extremities: edema, no cyanosis Laboratory Tests Test 02/12/19 06:10 White Blood Count 6.9 K/UL (4.8-10.8) Red Blood Count 2.91 M/UL (4.70-6.10) L Hemoglobin 8.6 G/DL (14.2-18.0) L Hematocrit 27.2 % (42.0-52.0) L Mean Corpuscular Volume 94 FL (80-99) Mean Corpuscular Hemoglobin 29.6 PG (27.0-31.0) Mean Corpuscular Hemoglobin Concent 31.6 G/DL (32.0-36.0) L Red Cell Distribution Width 13.5 % (11.6-14.8) Platelet Count 319 K/UL (150-450) Mean Platelet Volume 4.4 FL (6.5-10.1) L Neutrophils (%) (Auto) 59.9 % (45.0-75.0) Lymphocytes (%) (Auto) 26.2 % (20.0-45.0) Monocytes (%) (Auto) 7.2 % (1.0-10.0) Eosinophils (%) (Auto) 6.0 % (0.0-3.0) H Basophils (%) (Auto) 0.8 % (0.0-2.0) Sodium Level 142 MMOL/L (136-145) Potassium Level 4.5 MMOL/L (3.5-5.1) Chloride Level 104 MMOL/L (98-107) Carbon Dioxide Level 37 MMOL/L (21-32) H Anion Gap 1 mmol/L (5-15) L Blood Urea Nitrogen 15 mg/dL (7-18) Creatinine 0.9 MG/DL (0.55-1.30) Estimat Glomerular Filtration Rate > 60 mL/min (>60) Glucose Level 94 MG/DL (74-106) Calcium Level 8.8 MG/DL (8.5-10.1) Plan Problems: (1) Cellulitis of groin, left (2) Cellulitis Assessment & Plan: chronic cellulitis of pannus s/p panniculectomy now extubated and recovering pain controlled Doing well post op. Patient not to ambulate or lay flat as this would put too much tension on the incision. Ok to do PT in bed. dressings changed wound stable will monitor okay for diet -iv abx -drain care -keep lindsey in place dressing changes ambulate pt/ot -AM labs will follow with recs (3) COPD (chronic obstructive pulmonary disease) (4) Morbid obesity (5) Lumbar spondylosis (6) Right heart failure (7) ADALBERTO (obstructive sleep apnea) (8) Abdominal pannus (9) Seizures (10) Cerebrovascular accident (11) Peripheral edema (12) Abdominal wall cellulitis (13) UTI (urinary tract infection) (14) Hyponatremia (15) Uncontrolled seizures (16) Knee osteomyelits, right JimGt Feb 12, 2019 15:17
--- NOTE | 2019-02-12 15:45 | Progress Note ---
DATE: 02/12/2019 SUBJECTIVE: This is a 53-year-old male patient with cellulitis, very confused, disorganized. He has got no logical plan for his own self-care. He has got feelings of helplessness, hopelessness, low energy, poor appetite, loss of interest in activity. He still has depression, anxiety. That is why, his attending physician has requested daily psychiatric consultation. MENTAL STATUS EXAMINATION: This is a 53-year-old male. Appearance is disheveled. Attitude, irritable and agitated. Affect, guarded and restricted. Intellect poor. Mood, depressed and anxious. Motor activity, psychomotor agitation. Attention span is poor. Orientation x2. Speech is low volume and slurred. Thought process, disorganized and illogical. Insight and judgment is poor. DIAGNOSIS: Major depressive disorder, mild, recurrent, without psychotic features. PLAN: Treat him with Cymbalta 30 mg daily. Provide him with 20 minutes of reality-based supportive psychotherapy. 20 minutes of cognitive behavioral therapy provided to help him identify his automatic negative thoughts, help him convert his negative thoughts to more positive thoughts to reduce depression, anxiety, and mood lability. Chart reviewed. Discussed with staff. Seen and assessed in his room. Laney Mcghee M.D. DR: GEENA JOB#: [id number] CC:
[2019-02-12 16:00] VITALS: BP 134/57
--- NOTE | 2019-02-12 16:07 | NUR ---
IN[employer]CTOR [employer] SI:CELLULITIS VS: BP 134/57, P 71, T 98.2, RR 20, SpO2 94 on 2.0 NC RBC 2.91, H&H 8.6/27.2, IS:LORAZEPAM 2mg IV DILAUDID 0.5mg KEPPRA 1,000mg NORVASC 5mg METHADONE 10mg MED/SURG STATUS
--- NOTE | 2019-02-12 19:25 | NUR ---
NURSE NOTES: Received patient sleeping in bed. No labored breathing with nasal cannula 2L. HOB is remained elevated. Dressings on ABD intact. PICC line on L upper arm intact. 2 MARQUEZ Drains bilaterally intact with minimal red drainage. Pires intact and draining with yellow urine. Bed locked, lowest position, alarm on, call light within reach, side rails up x 2. Will continue to monitor.
--- NOTE | 2019-02-12 19:37 | NUR ---
HAND-OFF: Report given to Deena HINOJOSA.
[2019-02-12 20:00] VITALS: BP 113/65
[2019-02-12] MEDS: Dyna-Hex 2% Top Sol 2oz TOPIC SCH (21:29)
[2019-02-13] VITALS: BP 118/69
[2019-02-13 04:00] VITALS: BP 125/70
[2019-02-13] MEDS: levETIRAcetam 500mg/5ml Liquid ORAL SCH ×3 (05:18→21:55)
[2019-02-13 06:23] LABS: BASOPHILS % (AUTO) 0.9 % (0.0-2.0); LYMPHOCYTES % (AUTO) 26.6 % (20.0-45.0); MEAN CORPUSCULAR VOLUME 93 FL (80-99); MONOCYTES % (AUTO) 7.6 % (1.0-10.0); NEUTROPHILS % (AUTO) 58.9 % (45.0-75.0); PLATELET COUNT 325 K/UL (150-450); RED BLOOD COUNT 3.01 M/UL (4.70-6.10); RED CELL DISTRIBUTION WIDTH 13.3 % (11.6-14.8); WHITE BLOOD COUNT 7.1 K/UL (4.8-10.8)
[2019-02-13 06:50] LABS: ANION GAP 0 mmol/L (5-15); BLOOD UREA NITROGEN 17 mg/dL (7-18); CALCIUM 8.8 MG/DL (8.5-10.1); CARBON DIOXIDE 37 MMOL/L (21-32); CHLORIDE 103 MMOL/L (98-107); CREATININE 0.9 MG/DL (0.55-1.30); POTASSIUM 4.7 MMOL/L (3.5-5.1); SODIUM 140 MMOL/L (136-145)
--- NOTE | 2019-02-13 07:15 | NUR ---
HAND-OFF: Report given to Franny shah RN.
--- NOTE | 2019-02-13 07:45 | NUR ---
NURSE NOTES: Received pait Addendum: 02/13/19 at 0746 by DAMARI CROSS RN wrong entry
--- NOTE | 2019-02-13 07:46 | NUR ---
NURSE NOTES: Received patient in bed, alert and oriented x4. Not in acute respiratory/cardiac distress. PICC line dressing intact, Pires intact draining well to gravity with yellowish urine. No blood. MARQUEZ drains intact, draining serosang drainage. Surgical dressing on abdomen intact, lower ex's dressing intact. Bed is in lowest position and locked. Call light within reach. Will continue plan of care.
[2019-02-13 08:00] VITALS: BP 124/66
[2019-02-13] MEDS: DULoxetine 30mg cap ORAL SCH (08:16)
[2019-02-13] MEDS: Miconazole 2% Cream 30gm TOPIC SCH ×2 (08:23→21:55)
--- NOTE | 2019-02-13 08:30 | Progress Note ---
DATE: 02/13/2019 SUBJECTIVE: This is a 53-year-old male patient with cellulitis, confused, disorganized. He has altered mental status. He has decline in cognition below his baseline. he has increased depression, anxiety worsened by stress of his medical illness. MENTAL STATUS EXAMINATION: This is a 53-year-old male. Appearance is disheveled. Attitude, irritable and agitated. Affect, guarded and restricted. Intellect poor. Mood, depressed and anxious. Insight and judgment is poor. DIAGNOSIS: Major depressive disorder, mild, recurrent, without psychotic features. PLAN: Treat him with a medication regimen consisting of Cymbalta 30 mg a day. Provided him with 20 minutes of reality-based supportive psychotherapy. A 20 minutes of cognitive behavioral therapy provided to help him identify his automatic negative thoughts, help him convert his negative thoughts to more positive thoughts to reduce depression, anxiety, and mood lability. Chart reviewed. Discussed with staff. Seen and assessed in his room. Laney Mcghee M.D. DR: GUTIERREZ JOB#: [id number] CC:
[2019-02-13 12:00] VITALS: BP 131/64
--- NOTE | 2019-02-13 12:21 | General Progress Note ---
Assessment/Plan Problem List: (1) Seizures ICD Codes: R56.9 - Unspecified convulsions SNOMED: 83552995 (2) Cerebrovascular accident ICD Codes: I63.9 - Cerebral infarction, unspecified SNOMED: 001163809 (3) Peripheral edema ICD Codes: R60.9 - Edema, unspecified SNOMED: 682282577 (4) Cellulitis of groin, left ICD Codes: L03.314 - Cellulitis of groin SNOMED: 91950157 (5) Cellulitis ICD Codes: L03.90 - Cellulitis, unspecified SNOMED: 449680887 (6) COPD (chronic obstructive pulmonary disease) ICD Codes: J44.9 - Chronic obstructive pulmonary disease, unspecified SNOMED: 44927280 (7) Morbid obesity ICD Codes: E66.01 - Morbid (severe) obesity due to excess calories SNOMED: 121515524 (8) Abdominal pannus ICD Codes: E65 - Localized adiposity SNOMED: 4616800392056 (9) Abdominal wall cellulitis ICD Codes: L03.311 - Cellulitis of abdominal wall SNOMED: 30919428 (10) UTI (urinary tract infection) ICD Codes: N39.0 - Urinary tract infection, site not specified SNOMED: 24196305 Status: stable, progressing Assessment/Plan: o2 pulm tx abx pt diet cbc bmp am dc plan snf Subjective Constitutional: Reports: weakness Allergies: Coded Allergies: ASPIRIN (Verified Allergy, Unknown, 07/14/18) KETOROLAC (Verified Allergy, Unknown, 07/14/18) PENICILLINS (Verified Allergy, Unknown, 12/23/18) tolerated Ancef on 08/2018 All Systems: reviewed and negative except above Subjective o2nc sleepy calm Objective Last 24 Hour Vital Signs Date Time Temp Pulse Resp B/P (MAP) Pulse Ox O2 Delivery O2 Flow Rate FiO2 02/13/19 09:00 Nasal Cannula 2.0 02/13/19 08:32 96 Nasal Cannula 2.0 28 02/13/19 08:22 71 124/66 02/13/19 08:00 98.1 70 19 124/66 (85) 96 02/13/19 04:00 96.9 58 19 125/70 (88) 95 02/13/19 00:00 97.6 60 20 118/69 (85) 95 02/12/19 22:21 95 Nasal Cannula 2.0 28 02/12/19 21:00 Nasal Cannula 2.0 02/12/19 20:00 97.8 65 20 113/65 (81) 96 02/12/19 16:00 98.2 71 20 134/57 (82) 95 Intake and Output 02/12/19 02/13/19 19:00 07:00 Intake Total 1320 ml 1500 ml Output Total 1300 ml 955 ml Balance 20 ml 545 ml Intake Oral 1320 ml 600 ml IV Total 300 ml Other 600 ml Output Urine Total 1300 ml 900 ml Drainage Total 55 ml # Voids 2 2 # Bowel Movements 1 Laboratory Tests 02/13/19 05:33: White Blood Count 7.1, Red Blood Count 3.01L, Hemoglobin 9.0L, Hematocrit 28.0L , Mean Corpuscular Volume 93, Mean Corpuscular Hemoglobin 29.8, Mean Corpuscular Hemoglobin Concent 32.1, Red Cell Distribution Width 13.3, Platelet Count 325, Mean Platelet Volume 4.5L, Neutrophils (%) (Auto) 58.9, Lymphocytes ( %) (Auto) 26.6, Monocytes (%) (Auto) 7.6, Eosinophils (%) (Auto) 6.0H, Basophils (%) (Auto) 0.9, Sodium Level 140, Potassium Level 4.7, Chloride Level 103, Carbon Dioxide Level 37H, Anion Gap 0L, Blood Urea Nitrogen 17, Creatinine 0.9, Estimat Glomerular Filtration Rate > 60, Glucose Level 91, Calcium Level 8.8 Height (Feet): 6 Height (Inches): 0.00 Weight (Pounds): 418 General Appearance: lethargic EENT: normal ENT inspection Neck: normal alignment Cardiovascular: normal peripheral pulses, normal rate, regular rhythm Respiratory/Chest: chest wall non-tender, lungs clear, normal breath sounds Abdomen: soft, hypoactive bowel sounds, distended Extremities: normal inspection Edema: 1+ Arm (L), 1+ Arm (R), 1+ Leg (L), 1+ Leg (R), 1+ Pedal (L), 1+ Pedal ( R), 1+ Generalized Edema: trace edema Neurologic: responsive, motor weakness Skin: normal pigmentation, warm/dry Objective abd dressing c&d Ernesto Nicole DO Feb 13, 2019 12:21
--- NOTE | 2019-02-13 12:44 | Pulmonology Progress Note ---
Assessment/Plan Assessment/Plan ASSESSMENT Abdominal pannus Status post panniculectomy 02/08 COPD ADALBERTO Right heart failure Hypertension Morbid obesity Massive scrotal edema secondary to anasarca Bilateral lower extremity cellulitis and panniculitis with edema in setting of chronic venous stasis Intertrigo Seizure disorder History of CVA with left-sided weakness Major depressive disorder PLAN OF CARE MS floor s/p surgery wound care O2 PRN, titrate to keep pulse above 92%, HHN prn BiPAP at night BP management with CCB s/p Lasix ECHO with EF 60% a/PLT therapy with Plavix ( all to ASA) DVT prophylaxis s/p abx for Rx of cellulitis , ID follows, BCX and UCX negative continue miconazole cream for intertrigo seen by urologist , Pires cath placed elevate scrotum , improving after diuresis pain management seizure precautions, continue Keppra psych meds as per psychiatrist GI prophylaxis Bowel regimen Supportive care case discussed and evaluated by supervising physician Subjective Allergies: Coded Allergies: ASPIRIN (Verified Allergy, Unknown, 07/14/18) KETOROLAC (Verified Allergy, Unknown, 07/14/18) PENICILLINS (Verified Allergy, Unknown, 12/23/18) tolerated Ancef on 08/2018 Subjective denies chest pain, SOB still significant edema BLE, scrotal edema Objective Last 24 Hour Vital Signs Date Time Temp Pulse Resp B/P (MAP) Pulse Ox O2 Delivery O2 Flow Rate FiO2 02/13/19 09:00 Nasal Cannula 2.0 02/13/19 08:32 96 Nasal Cannula 2.0 28 02/13/19 08:22 71 124/66 02/13/19 08:00 98.1 70 19 124/66 (85) 96 02/13/19 04:00 96.9 58 19 125/70 (88) 95 02/13/19 00:00 97.6 60 20 118/69 (85) 95 02/12/19 22:21 95 Nasal Cannula 2.0 28 02/12/19 21:00 Nasal Cannula 2.0 02/12/19 20:00 97.8 65 20 113/65 (81) 96 02/12/19 16:00 98.2 71 20 134/57 (82) 95 Intake and Output 02/12/19 02/13/19 19:00 07:00 Intake Total 1320 ml 1500 ml Output Total 1300 ml 955 ml Balance 20 ml 545 ml Intake Oral 1320 ml 600 ml IV Total 300 ml Other 600 ml Output Urine Total 1300 ml 900 ml Drainage Total 55 ml # Voids 2 2 # Bowel Movements 1 General Appearance: no acute distress, other - morbidly obese male in NAD HEENT: normocephalic, atraumatic, anicteric, mucous membranes moist, PERRL Respiratory/Chest: lungs clear - distant , no respiratory distress, no accessory muscle use Cardiovascular: normal peripheral pulses, normal rate - heart sounds distant , no gallop/murmur Abdomen: soft, non tender - obese , other - abdomen with large dresing C/D/I Genitourinary: other - scrotal edema, decreasing Extremities: pedal pulses normal, other - +1 -2 edema BLE Neurologic/Psychiatric: abnormal gait, alert, oriented x 3, responsive, depressed affect Musculoskeletal: normal muscle bulk Laboratory Tests 02/13/19 05:33: White Blood Count 7.1, Red Blood Count 3.01L, Hemoglobin 9.0L, Hematocrit 28.0L , Mean Corpuscular Volume 93, Mean Corpuscular Hemoglobin 29.8, Mean Corpuscular Hemoglobin Concent 32.1, Red Cell Distribution Width 13.3, Platelet Count 325, Mean Platelet Volume 4.5L, Neutrophils (%) (Auto) 58.9, Lymphocytes ( %) (Auto) 26.6, Monocytes (%) (Auto) 7.6, Eosinophils (%) (Auto) 6.0H, Basophils (%) (Auto) 0.9, Sodium Level 140, Potassium Level 4.7, Chloride Level 103, Carbon Dioxide Level 37H, Anion Gap 0L, Blood Urea Nitrogen 17, Creatinine 0.9, Estimat Glomerular Filtration Rate > 60, Glucose Level 91, Calcium Level 8.8 Current Medications Medications (Trade) Dose Ordered Sig/Luis Route PRN Reason Start Time Stop Time Status Last Admin Dose Admin Acetaminophen (Tylenol) 650 mg Q4H PRN ORAL T>100.5 02/06/19 12:30 03/08/19 12:24 Amlodipine Besylate (Norvasc) 5 mg DAILY ORAL 02/07/19 09:00 02/22/19 08:59 02/13/19 08:22 Chlorhexidine Gluconate (Ruby-Hex 2%) 1 applic DAILY@1999 TOPIC 02/06/19 20:00 02/26/19 19:59 02/12/19 21:29 Dextrose (Dextrose 50%) 25 ml Q30M PRN IV Hypoglycemia 02/06/19 12:30 02/21/19 10:59 Dextrose (Dextrose 50%) 50 ml Q30M PRN IV hypoglycemia 02/06/19 12:30 02/21/19 10:59 Diphenhydramine HCl (Benadryl) 25 mg Q6H PRN IVP Itching 02/12/19 12:00 03/14/19 11:59 02/12/19 22:40 Duloxetine HCl (Cymbalta) 30 mg DAILY ORAL 02/07/19 09:00 02/22/19 08:59 02/13/19 08:16 Fentanyl (Duragesic) 1 patch Q72H TDERMAL 02/11/19 13:30 02/18/19 13:29 02/11/19 13:32 Hydromorphone HCl (Dilaudid) 0.5 mg Q3H PRN IV SEVERE BREAKTHRU PAIN (7-10) 02/11/19 17:42 02/17/19 11:41 02/13/19 11:20 Levetiracetam (Keppra) 1,000 mg Q8HR ORAL 02/06/19 14:00 02/21/19 13:59 02/13/19 05:18 Miconazole Nitrate (Miconazole Nitrate) 1 applic Q12HR TOPIC 02/06/19 21:00 03/05/19 20:59 02/13/19 08:23 Miscellaneous Medication (fentaNYL Destruction) 1 ea Q72H MISC 02/14/19 13:30 03/16/19 13:29 Naloxone HCl (Narcan) 0.1 mg PRN IV Sedation scale 3 or 4 02/06/19 12:30 04/04/19 11:59 Ondansetron HCl (Zofran) 4 mg Q6H PRN IVP Nausea & Vomiting 02/06/19 12:28 03/08/19 12:27 Pantoprazole (Protonix) 40 mg ACBREAKFAST ORAL 02/11/19 06:30 03/13/19 06:29 02/13/19 05:34 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
--- NOTE | 2019-02-13 15:02 | Surgery Progress Note ---
Surgery Progress Note Subjective Additional Comments working with physical therapy Objective Last 24 Hour Vital Signs Date Time Temp Pulse Resp B/P (MAP) Pulse Ox O2 Delivery O2 Flow Rate FiO2 02/13/19 12:00 98.7 70 19 131/64 (86) 96 02/13/19 09:00 Nasal Cannula 2.0 02/13/19 08:32 96 Nasal Cannula 2.0 28 02/13/19 08:22 71 124/66 02/13/19 08:00 98.1 70 19 124/66 (85) 96 02/13/19 04:00 96.9 58 19 125/70 (88) 95 02/13/19 00:00 97.6 60 20 118/69 (85) 95 02/12/19 22:21 95 Nasal Cannula 2.0 28 02/12/19 21:00 Nasal Cannula 2.0 02/12/19 20:00 97.8 65 20 113/65 (81) 96 02/12/19 16:00 98.2 71 20 134/57 (82) 95 I&O Intake and Output 02/12/19 02/13/19 19:00 07:00 Intake Total 1320 ml 1500 ml Output Total 1300 ml 955 ml Balance 20 ml 545 ml Intake Oral 1320 ml 600 ml IV Total 300 ml Other 600 ml Output Urine Total 1300 ml 900 ml Drainage Total 55 ml # Voids 2 2 # Bowel Movements 1 Dressing: saturated Wound: clean Drains: lisbet Cardiovascular: RSR Respiratory: clear Abdomen: soft, present bowel sounds, non-distended Extremities: edema, no cyanosis Laboratory Tests Test 02/13/19 05:33 White Blood Count 7.1 K/UL (4.8-10.8) Red Blood Count 3.01 M/UL (4.70-6.10) L Hemoglobin 9.0 G/DL (14.2-18.0) L Hematocrit 28.0 % (42.0-52.0) L Mean Corpuscular Volume 93 FL (80-99) Mean Corpuscular Hemoglobin 29.8 PG (27.0-31.0) Mean Corpuscular Hemoglobin Concent 32.1 G/DL (32.0-36.0) Red Cell Distribution Width 13.3 % (11.6-14.8) Platelet Count 325 K/UL (150-450) Mean Platelet Volume 4.5 FL (6.5-10.1) L Neutrophils (%) (Auto) 58.9 % (45.0-75.0) Lymphocytes (%) (Auto) 26.6 % (20.0-45.0) Monocytes (%) (Auto) 7.6 % (1.0-10.0) Eosinophils (%) (Auto) 6.0 % (0.0-3.0) H Basophils (%) (Auto) 0.9 % (0.0-2.0) Sodium Level 140 MMOL/L (136-145) Potassium Level 4.7 MMOL/L (3.5-5.1) Chloride Level 103 MMOL/L (98-107) Carbon Dioxide Level 37 MMOL/L (21-32) H Anion Gap 0 mmol/L (5-15) L Blood Urea Nitrogen 17 mg/dL (7-18) Creatinine 0.9 MG/DL (0.55-1.30) Estimat Glomerular Filtration Rate > 60 mL/min (>60) Glucose Level 91 MG/DL (74-106) Calcium Level 8.8 MG/DL (8.5-10.1) Plan Problems: (1) Cellulitis of groin, left (2) Cellulitis Assessment & Plan: chronic cellulitis of pannus s/p panniculectomy now extubated and recovering pain controlled Doing well post op. Patient not to ambulate or lay flat as this would put too much tension on the incision. Ok to do PT in bed. dressings changed wound stable will monitor okay for diet -iv abx -drain care -keep lindsey in place dressing changes ambulate pt/ot -AM labs will follow with recs (3) COPD (chronic obstructive pulmonary disease) (4) Morbid obesity (5) Lumbar spondylosis (6) Right heart failure (7) ADALBERTO (obstructive sleep apnea) (8) Abdominal pannus (9) Seizures (10) Cerebrovascular accident (11) Peripheral edema (12) Abdominal wall cellulitis (13) UTI (urinary tract infection) (14) Hyponatremia (15) Uncontrolled seizures (16) Knee osteomyelits, right Gt Fernandez Feb 13, 2019 15:02
--- NOTE | 2019-02-13 15:10 | Cardiac Electrophysiology PN ---
Assessment/Plan Assessment/Plan 1. Hypertension. On amlodipine 5 daily . EF 60% 2. Severe bilateral lower extremity edema and cellulitis. On abx per Dr. Patterson. 3. Abdominal pannus. S/P Resection of pannus 02/01/19 Has 2 MARQUEZ drains with drainage 4. COPD and ADALBERTO. 5. S/P Resp failure 6. Right heart failure. 7. Lumbar spondylosis. 8. Morbid obesity. 9. 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 Transfer to LTAC pending. Objective Last 24 Hour Vital Signs Date Time Temp Pulse Resp B/P (MAP) Pulse Ox O2 Delivery O2 Flow Rate FiO2 02/13/19 12:00 98.7 70 19 131/64 (86) 96 02/13/19 09:00 Nasal Cannula 2.0 02/13/19 08:32 96 Nasal Cannula 2.0 28 02/13/19 08:22 71 124/66 02/13/19 08:00 98.1 70 19 124/66 (85) 96 02/13/19 04:00 96.9 58 19 125/70 (88) 95 02/13/19 00:00 97.6 60 20 118/69 (85) 95 02/12/19 22:21 95 Nasal Cannula 2.0 28 02/12/19 21:00 Nasal Cannula 2.0 02/12/19 20:00 97.8 65 20 113/65 (81) 96 02/12/19 16:00 98.2 71 20 134/57 (82) 95 Intake and Output 02/12/19 02/13/19 19:00 07:00 Intake Total 1320 ml 1500 ml Output Total 1300 ml 955 ml Balance 20 ml 545 ml Intake Oral 1320 ml 600 ml IV Total 300 ml Other 600 ml Output Urine Total 1300 ml 900 ml Drainage Total 55 ml # Voids 2 2 # Bowel Movements 1 Laboratory Tests Test 02/13/19 05:33 White Blood Count 7.1 K/UL (4.8-10.8) Red Blood Count 3.01 M/UL (4.70-6.10) L Hemoglobin 9.0 G/DL (14.2-18.0) L Hematocrit 28.0 % (42.0-52.0) L Mean Corpuscular Volume 93 FL (80-99) Mean Corpuscular Hemoglobin 29.8 PG (27.0-31.0) Mean Corpuscular Hemoglobin Concent 32.1 G/DL (32.0-36.0) Red Cell Distribution Width 13.3 % (11.6-14.8) Platelet Count 325 K/UL (150-450) Mean Platelet Volume 4.5 FL (6.5-10.1) L Neutrophils (%) (Auto) 58.9 % (45.0-75.0) Lymphocytes (%) (Auto) 26.6 % (20.0-45.0) Monocytes (%) (Auto) 7.6 % (1.0-10.0) Eosinophils (%) (Auto) 6.0 % (0.0-3.0) H Basophils (%) (Auto) 0.9 % (0.0-2.0) Sodium Level 140 MMOL/L (136-145) Potassium Level 4.7 MMOL/L (3.5-5.1) Chloride Level 103 MMOL/L (98-107) Carbon Dioxide Level 37 MMOL/L (21-32) H Anion Gap 0 mmol/L (5-15) L Blood Urea Nitrogen 17 mg/dL (7-18) Creatinine 0.9 MG/DL (0.55-1.30) Estimat Glomerular Filtration Rate > 60 mL/min (>60) Glucose Level 91 MG/DL (74-106) Calcium Level 8.8 MG/DL (8.5-10.1) Objective HEAD AND NECK: No JVD. LUNGS: Clear. CARDIOVASCULAR: Regular S1 and S2 with no gallop or murmur. ABDOMEN: Very swollen, erythematous, and enlarged scrotum. S/P abdominal surgery with 2 drains. Adi intact EXTREMITIES: 2+ pitting edema and cellulitis of the legs. Carlos Yee MD Feb 13, 2019 15:10
[2019-02-13 16:00] VITALS: BP 110/73
--- NOTE | 2019-02-13 16:26 | NUR ---
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
--- NOTE | 2019-02-13 19:00 | NUR ---
NURSE NOTES: Left MARQUEZ drained 10cc and right MARQUEZ drained 5cc. Both MARQUEZ intact, lindsey draining well to gravity, PICC line intact.
--- NOTE | 2019-02-13 19:41 | NUR ---
HAND-OFF: Report given to
--- NOTE | 2019-02-13 19:42 | NUR ---
NURSE NOTES: Received patient in no apparent distress. A&OX4. PICC line on left upper arm patent and intact. Dressing noted on abdomen and bilateral lower leg, Dry and intact. MARQUEZ draining noted bilateral abdomen, patent. Bed in lowest position. Call light within reach. Will continue to monitor.
[2019-02-13 20:00] VITALS: BP 120/65
[2019-02-13] MEDS: Dyna-Hex 2% Top Sol 2oz TOPIC SCH (20:26)
--- NOTE | 2019-02-13 22:20 | Infectious Diseases Prog Note ---
Assessment/Plan Assessment/Plan Assessment: 02/01 SP Panniculectomy VDRF (post-op)- s/p extubation 02/02 Low grade fever x1 Mild leukocytosis- likely post op- resolved -02/01 CXR: Mild interstitial congestive changes persist, stable sp cx normal resp wesley (prelim) R groin swelling and pain- 2ry from Volume overload Sandy intertrigo; improving B/l Leg cellulitis and panniculitis - in the setting of chronic venous stasis, s /p Rx Active infectious cellulitis essentially resolved. Now he has chronic venous stasis and neuropathic pain with poorly healing wounds. Alot off this is due to the severe swelling in his feet but also he is poorly compliant with wound care instructions. Afebrile No leukocytosis Recent seizure episode -had L side weakness and spasticity CVA HTN bipolar disorder w/ psychotic features tobacco abuse anxiety disorder chronic pain CHF seizure disorder COPD morbid obesity Dm2 HTN SNF resident Plan: -Continue to monitor off abx -02/08 SP IV Vancomycin #8 -02/04 SP Aztreonam #4 -01/26 SP Fluconzole #5 - 01/07/19 SP IV Dapto d# 14 - 01/06/19 S/P Levofloxacin # - 12/25 sp Bactrim #/ and add IV Ancef #3/ for cellulitis - Monitor CBC/CMP, temperatures - aspiration precautions - wound care per hospital protocol -plastic sx, Gen sx f/u Subjective Allergies: Coded Allergies: ASPIRIN (Verified Allergy, Unknown, 07/14/18) KETOROLAC (Verified Allergy, Unknown, 07/14/18) PENICILLINS (Verified Allergy, Unknown, 12/23/18) tolerated Ancef on 08/2018 Subjective afebrile no leukocytosis Objective Vital Signs Last 24 Hour Vital Signs Date Time Temp Pulse Resp B/P (MAP) Pulse Ox O2 Delivery O2 Flow Rate FiO2 02/13/19 20:14 95 Nasal Cannula 2.0 28 02/13/19 20:00 98.4 72 18 120/65 (83) 98 02/13/19 16:00 98.2 74 18 110/73 (85) 96 02/13/19 12:00 98.7 70 19 131/64 (86) 96 02/13/19 09:00 Nasal Cannula 2.0 02/13/19 08:32 96 Nasal Cannula 2.0 28 02/13/19 08:22 71 124/66 02/13/19 08:00 98.1 70 19 124/66 (85) 96 02/13/19 04:00 96.9 58 19 125/70 (88) 95 02/13/19 00:00 97.6 60 20 118/69 (85) 95 02/12/19 22:21 95 Nasal Cannula 2.0 28 Height (Feet): 6 Height (Inches): 0.00 Weight (Pounds): 418 Objective General Appearance: alert, moderate distress, obese Head: atraumatic Eyes: bilateral eye normal inspection ENT: normal ENT inspection, hearing grossly normal, normal voice Neck: normal inspection, full range of motion, supple, no bony tend Respiratory: normal inspection, lungs clear, normal breath sounds, no respiratory distress, no retraction, no wheezing Cardiovascular #1: regular rate, rhythm Gastrointestinal: normal inspection, normal bowel sounds, soft, no guarding, no hernia, other - Left lower abdominal area Genitourinary: other - Swollen groin edematous erythematous enlarged scrotum Musculoskeletal: normal inspection, back normal, normal range of motion Neurologic: normal inspection, alert, responsive, speech normal Psychiatric: depressed affect, anxious Skin: normal inspection, normal color, no rash Laboratory Tests Test 02/13/19 05:33 White Blood Count 7.1 K/UL (4.8-10.8) Red Blood Count 3.01 M/UL (4.70-6.10) L Hemoglobin 9.0 G/DL (14.2-18.0) L Hematocrit 28.0 % (42.0-52.0) L Mean Corpuscular Volume 93 FL (80-99) Mean Corpuscular Hemoglobin 29.8 PG (27.0-31.0) Mean Corpuscular Hemoglobin Concent 32.1 G/DL (32.0-36.0) Red Cell Distribution Width 13.3 % (11.6-14.8) Platelet Count 325 K/UL (150-450) Mean Platelet Volume 4.5 FL (6.5-10.1) L Neutrophils (%) (Auto) 58.9 % (45.0-75.0) Lymphocytes (%) (Auto) 26.6 % (20.0-45.0) Monocytes (%) (Auto) 7.6 % (1.0-10.0) Eosinophils (%) (Auto) 6.0 % (0.0-3.0) H Basophils (%) (Auto) 0.9 % (0.0-2.0) Sodium Level 140 MMOL/L (136-145) Potassium Level 4.7 MMOL/L (3.5-5.1) Chloride Level 103 MMOL/L (98-107) Carbon Dioxide Level 37 MMOL/L (21-32) H Anion Gap 0 mmol/L (5-15) L Blood Urea Nitrogen 17 mg/dL (7-18) Creatinine 0.9 MG/DL (0.55-1.30) Estimat Glomerular Filtration Rate > 60 mL/min (>60) Glucose Level 91 MG/DL (74-106) Calcium Level 8.8 MG/DL (8.5-10.1) Current Medications Medications (Trade) Dose Ordered Sig/Luis Route PRN Reason Start Time Stop Time Status Last Admin Dose Admin Acetaminophen (Tylenol) 650 mg Q4H PRN ORAL T>100.5 02/06/19 12:30 03/08/19 12:24 Amlodipine Besylate (Norvasc) 5 mg DAILY ORAL 02/07/19 09:00 02/22/19 08:59 02/13/19 08:22 Chlorhexidine Gluconate (Ruby-Hex 2%) 1 applic DAILY@1999 TOPIC 02/06/19 20:00 02/26/19 19:59 02/13/19 20:26 Dextrose (Dextrose 50%) 25 ml Q30M PRN IV Hypoglycemia 02/06/19 12:30 02/21/19 10:59 Dextrose (Dextrose 50%) 50 ml Q30M PRN IV hypoglycemia 02/06/19 12:30 02/21/19 10:59 Diphenhydramine HCl (Benadryl) 25 mg Q6H PRN IVP Itching 02/12/19 12:00 03/14/19 11:59 02/12/19 22:40 Duloxetine HCl (Cymbalta) 30 mg DAILY ORAL 02/07/19 09:00 02/22/19 08:59 02/13/19 08:16 Fentanyl (Duragesic) 1 patch Q72H TDERMAL 02/11/19 13:30 02/18/19 13:29 02/11/19 13:32 Hydromorphone HCl (Dilaudid) 0.5 mg Q3H PRN IV SEVERE BREAKTHRU PAIN (7-10) 02/11/19 17:42 02/17/19 11:41 02/13/19 20:27 Levetiracetam (Keppra) 1,000 mg Q8HR ORAL 02/06/19 14:00 02/21/19 13:59 02/13/19 21:55 Miconazole Nitrate (Miconazole Nitrate) 1 applic Q12HR TOPIC 02/06/19 21:00 03/05/19 20:59 02/13/19 21:55 Miscellaneous Medication (fentaNYL Destruction) 1 ea Q72H MISC 02/14/19 13:30 03/16/19 13:29 Naloxone HCl (Narcan) 0.1 mg PRN IV Sedation scale 3 or 4 02/06/19 12:30 04/04/19 11:59 Ondansetron HCl (Zofran) 4 mg Q6H PRN IVP Nausea & Vomiting 02/06/19 12:28 03/08/19 12:27 Pantoprazole (Protonix) 40 mg ACBREAKFAST ORAL 02/11/19 06:30 03/13/19 06:29 02/13/19 05:34 Alexa Patterson M.D. Feb 13, 2019 22:20
--- NOTE | 2019-02-13 22:37 | NUR ---
NURSE NOTES: Abdomen and left lower leg dressing changed. Patient refused to change dressing on right lower leg.
[2019-02-14] VITALS: BP 125/64
[2019-02-14 04:00] VITALS: BP 101/72
[2019-02-14] MEDS: levETIRAcetam 500mg/5ml Liquid ORAL SCH ×3 (05:49→21:28)
[2019-02-14 06:21] LABS: BASOPHILS % (AUTO) 0.6 % (0.0-2.0); EOSINOPHILS % (AUTO) 5.5 % (0.0-3.0); HEMATOCRIT 27.5 % (42.0-52.0); HEMOGLOBIN 8.7 G/DL (14.2-18.0); LYMPHOCYTES % (AUTO) 25.2 % (20.0-45.0); MEAN CORPUSCULAR VOLUME 93 FL (80-99); MONOCYTES % (AUTO) 7.9 % (1.0-10.0); NEUTROPHILS % (AUTO) 60.8 % (45.0-75.0); PLATELET COUNT 306 K/UL (150-450); RED BLOOD COUNT 2.96 M/UL (4.70-6.10); RED CELL DISTRIBUTION WIDTH 13.5 % (11.6-14.8); WHITE BLOOD COUNT 7.3 K/UL (4.8-10.8)
[2019-02-14 07:07] LABS: ANION GAP 1 mmol/L (5-15); BLOOD UREA NITROGEN 15 mg/dL (7-18); CALCIUM 8.7 MG/DL (8.5-10.1); CARBON DIOXIDE 37 MMOL/L (21-32); CHLORIDE 103 MMOL/L (98-107); CREATININE 0.9 MG/DL (0.55-1.30); POTASSIUM 4.7 MMOL/L (3.5-5.1); SODIUM 140 MMOL/L (136-145)
--- NOTE | 2019-02-14 07:40 | NUR ---
HAND-OFF: Report given to Mariela HINOJOSA.
--- NOTE | 2019-02-14 07:40 | NUR ---
NURSE NOTES: Received patient in bed, patient AAOX4. No sign of distress, PICC line on left upper arm patent and intact. Dressing noted on abdomen and bilateral lower leg, Dry and intact. MARQUEZ draining noted bilateral abdomen, patent. Bed in lowest position. Call light within reach. Will continue to monitor gio alicea
[2019-02-14 08:00] VITALS: BP 112/61
--- NOTE | 2019-02-14 08:02 | Pulmonology Progress Note ---
Assessment/Plan Assessment/Plan ASSESSMENT Abdominal pannus Status post panniculectomy 02/08 COPD ADALBERTO Right heart failure Hypertension Morbid obesity Massive scrotal edema secondary to anasarca Bilateral lower extremity cellulitis and panniculitis with edema in setting of chronic venous stasis Intertrigo Anemia Seizure disorder History of CVA with left-sided weakness Major depressive disorder PLAN OF CARE MS floor s/p surgery wound care pain management Benadryl prn for pruritis control O2 PRN, titrate to keep pulse above 92%, HHN prn BiPAP at night BP management with CCB s/p Lasix ECHO with EF 60% a/PLT therapy with Plavix ( all to ASA) DVT prophylaxis s/p abx for Rx of cellulitis , ID follows, BCX and UCX negative continue miconazole cream for intertrigo monitor H&H with goal to keep hemoglobin above 7 elevate scrotum , improving after diuresis seizure precautions, continue Keppra psych meds as per psychiatrist GI prophylaxis Bowel regimen Supportive care case discussed and evaluated by supervising physician Subjective Allergies: Coded Allergies: ASPIRIN (Verified Allergy, Unknown, 07/14/18) KETOROLAC (Verified Allergy, Unknown, 07/14/18) PENICILLINS (Verified Allergy, Unknown, 12/23/18) tolerated Ancef on 08/2018 Subjective denies chest pain, SOB postop pain controlled, but c/w inclining Objective Last 24 Hour Vital Signs Date Time Temp Pulse Resp B/P (MAP) Pulse Ox O2 Delivery O2 Flow Rate FiO2 02/14/19 04:00 98.5 72 18 101/72 (82) 98 02/14/19 00:00 98.4 74 18 125/64 (84) 98 02/13/19 21:00 Nasal Cannula 2.0 02/13/19 20:14 95 Nasal Cannula 2.0 28 02/13/19 20:00 98.4 72 18 120/65 (83) 98 02/13/19 16:00 98.2 74 18 110/73 (85) 96 02/13/19 12:00 98.7 70 19 131/64 (86) 96 02/13/19 09:00 Nasal Cannula 2.0 02/13/19 08:32 96 Nasal Cannula 2.0 28 02/13/19 08:22 71 124/66 Intake and Output 02/13/19 02/14/19 18:59 06:59 Intake Total 600 ml 1000 ml Output Total 915 ml 766 ml Balance -315 ml 234 ml Intake Oral 600 ml 1000 ml Output Urine Total 900 ml 750 ml Drainage Total 15 ml 16 ml Objective General Appearance: no acute distress, morbidly obese male in NAD HEENT: normocephalic, atraumatic, anicteric, mucous membranes moist, PERRL Respiratory/Chest: lungs clear - distant , no respiratory distress, no accessory muscle use Cardiovascular: normal peripheral pulses, normal rate with heart sounds distant , no gallops/murmur Abdomen: soft, non tender - obese , abdomen with large dressing C/D/I Genitourinary: scrotal edema, decreasing Extremities: pedal pulses normal, +1 -2 edema BLE Neurologic/Psychiatric: abnormal gait, alert, oriented x 3, responsive, depressed affect Musculoskeletal: normal muscle bulk Laboratory Tests 02/14/19 05:52: White Blood Count 7.3, Red Blood Count 2.96L, Hemoglobin 8.7L, Hematocrit 27.5L , Mean Corpuscular Volume 93, Mean Corpuscular Hemoglobin 29.6, Mean Corpuscular Hemoglobin Concent 31.8L, Red Cell Distribution Width 13.5, Platelet Count 306, Mean Platelet Volume 4.8L, Neutrophils (%) (Auto) 60.8, Lymphocytes (%) (Auto) 25.2, Monocytes (%) (Auto) 7.9, Eosinophils (%) (Auto) 5.5H, Basophils (%) (Auto) 0.6, Sodium Level 140, Potassium Level 4.7, Chloride Level 103, Carbon Dioxide Level 37H, Anion Gap 1L, Blood Urea Nitrogen 15, Creatinine 0.9, Estimat Glomerular Filtration Rate > 60, Glucose Level 98, Calcium Level 8.7 Current Medications Medications (Trade) Dose Ordered Sig/Luis Route PRN Reason Start Time Stop Time Status Last Admin Dose Admin Acetaminophen (Tylenol) 650 mg Q4H PRN ORAL T>100.5 02/06/19 12:30 03/08/19 12:24 Amlodipine Besylate (Norvasc) 5 mg DAILY ORAL 02/07/19 09:00 02/22/19 08:59 02/13/19 08:22 Chlorhexidine Gluconate (Ruby-Hex 2%) 1 applic DAILY@1999 TOPIC 02/06/19 20:00 02/26/19 19:59 02/13/19 20:26 Dextrose (Dextrose 50%) 25 ml Q30M PRN IV Hypoglycemia 02/06/19 12:30 02/21/19 10:59 Dextrose (Dextrose 50%) 50 ml Q30M PRN IV hypoglycemia 02/06/19 12:30 02/21/19 10:59 Diphenhydramine HCl (Benadryl) 25 mg Q6H PRN IVP Itching 02/12/19 12:00 03/14/19 11:59 02/12/19 22:40 Duloxetine HCl (Cymbalta) 30 mg DAILY ORAL 02/07/19 09:00 02/22/19 08:59 02/13/19 08:16 Fentanyl (Duragesic) 1 patch Q72H TDERMAL 02/11/19 13:30 02/18/19 13:29 02/11/19 13:32 Hydromorphone HCl (Dilaudid) 0.5 mg Q3H PRN IV SEVERE BREAKTHRU PAIN (7-10) 02/11/19 17:42 02/17/19 11:41 02/14/19 05:49 Levetiracetam (Keppra) 1,000 mg Q8HR ORAL 02/06/19 14:00 02/21/19 13:59 02/14/19 05:49 Miconazole Nitrate (Miconazole Nitrate) 1 applic Q12HR TOPIC 02/06/19 21:00 03/05/19 20:59 02/13/19 21:55 Miscellaneous Medication (fentaNYL Destruction) 1 ea Q72H MISC 02/14/19 13:30 03/16/19 13:29 Naloxone HCl (Narcan) 0.1 mg PRN IV Sedation scale 3 or 4 02/06/19 12:30 04/04/19 11:59 Ondansetron HCl (Zofran) 4 mg Q6H PRN IVP Nausea & Vomiting 02/06/19 12:28 03/08/19 12:27 Pantoprazole (Protonix) 40 mg ACBREAKFAST ORAL 02/11/19 06:30 03/13/19 06:29 02/14/19 05:49 Kiera Vivar NP Feb 14, 2019 08:02
[2019-02-14] MEDS ORDERED: DiphenhydrAMINE 50mg/ml Inj IVP PRN (08:15)
[2019-02-14] MEDS: DULoxetine 30mg cap ORAL SCH (08:58)
[2019-02-14] MEDS: Miconazole 2% Cream 30gm TOPIC SCH ×2 (09:02→21:00)
--- NOTE | 2019-02-14 09:14 | General Progress Note ---
Assessment/Plan Problem List: (1) Seizures ICD Codes: R56.9 - Unspecified convulsions SNOMED: 55766496 (2) Cerebrovascular accident ICD Codes: I63.9 - Cerebral infarction, unspecified SNOMED: 633542063 (3) Peripheral edema ICD Codes: R60.9 - Edema, unspecified SNOMED: 897804737 (4) Cellulitis of groin, left ICD Codes: L03.314 - Cellulitis of groin SNOMED: 91520486 (5) Cellulitis ICD Codes: L03.90 - Cellulitis, unspecified SNOMED: 288169055 (6) COPD (chronic obstructive pulmonary disease) ICD Codes: J44.9 - Chronic obstructive pulmonary disease, unspecified SNOMED: 24833804 (7) Morbid obesity ICD Codes: E66.01 - Morbid (severe) obesity due to excess calories SNOMED: 891398364 (8) Abdominal pannus ICD Codes: E65 - Localized adiposity SNOMED: 2557788868273 (9) Abdominal wall cellulitis ICD Codes: L03.311 - Cellulitis of abdominal wall SNOMED: 72891386 (10) UTI (urinary tract infection) ICD Codes: N39.0 - Urinary tract infection, site not specified SNOMED: 49714596 Status: stable, progressing Assessment/Plan: o2 pulm tx abx pt diet cbc bmp am dc plan snf Subjective Constitutional: Reports: weakness Allergies: Coded Allergies: ASPIRIN (Verified Allergy, Unknown, 07/14/18) KETOROLAC (Verified Allergy, Unknown, 07/14/18) PENICILLINS (Verified Allergy, Unknown, 12/23/18) tolerated Ancef on 08/2018 All Systems: reviewed and negative except above Subjective o2nc sleepy calm Objective Last 24 Hour Vital Signs Date Time Temp Pulse Resp B/P (MAP) Pulse Ox O2 Delivery O2 Flow Rate FiO2 02/14/19 08:58 76 112/61 02/14/19 08:00 97.5 76 22 112/61 (78) 98 02/14/19 04:00 98.5 72 18 101/72 (82) 98 02/14/19 00:00 98.4 74 18 125/64 (84) 98 02/13/19 21:00 Nasal Cannula 2.0 02/13/19 20:14 95 Nasal Cannula 2.0 28 02/13/19 20:00 98.4 72 18 120/65 (83) 98 02/13/19 16:00 98.2 74 18 110/73 (85) 96 02/13/19 12:00 98.7 70 19 131/64 (86) 96 Intake and Output 02/13/19 02/14/19 18:59 06:59 Intake Total 600 ml 1000 ml Output Total 915 ml 766 ml Balance -315 ml 234 ml Intake Oral 600 ml 1000 ml Output Urine Total 900 ml 750 ml Drainage Total 15 ml 16 ml Laboratory Tests 02/14/19 05:52: White Blood Count 7.3, Red Blood Count 2.96L, Hemoglobin 8.7L, Hematocrit 27.5L , Mean Corpuscular Volume 93, Mean Corpuscular Hemoglobin 29.6, Mean Corpuscular Hemoglobin Concent 31.8L, Red Cell Distribution Width 13.5, Platelet Count 306, Mean Platelet Volume 4.8L, Neutrophils (%) (Auto) 60.8, Lymphocytes (%) (Auto) 25.2, Monocytes (%) (Auto) 7.9, Eosinophils (%) (Auto) 5.5H, Basophils (%) (Auto) 0.6, Sodium Level 140, Potassium Level 4.7, Chloride Level 103, Carbon Dioxide Level 37H, Anion Gap 1L, Blood Urea Nitrogen 15, Creatinine 0.9, Estimat Glomerular Filtration Rate > 60, Glucose Level 98, Calcium Level 8.7 Height (Feet): 6 Height (Inches): 0.00 Weight (Pounds): 418 General Appearance: lethargic EENT: normal ENT inspection Neck: normal alignment Cardiovascular: normal peripheral pulses, normal rate, regular rhythm Respiratory/Chest: chest wall non-tender, lungs clear, normal breath sounds Abdomen: soft, hypoactive bowel sounds, distended Extremities: normal inspection Edema: 1+ Arm (L), 1+ Arm (R), 1+ Leg (L), 1+ Leg (R), 1+ Pedal (L), 1+ Pedal ( R), 1+ Generalized Edema: trace edema Neurologic: motor weakness Skin: normal pigmentation, warm/dry Objective abd dressing c&d Ernesto Nicole DO Feb 14, 2019 09:14
[2019-02-14 12:00] VITALS: BP 121/65
--- NOTE | 2019-02-14 13:26 | Cardiac Electrophysiology PN ---
Assessment/Plan Assessment/Plan 1. Hypertension. On amlodipine 5 daily . EF 60% 2. Severe bilateral lower extremity edema and cellulitis. On abx per Dr. Patterson. 3. Abdominal pannus. S/P Resection of pannus 02/01/19 Has 2 MARQUEZ drains with drainage 4. COPD and ADALBERTO. 5. S/P Resp failure 6. Right heart failure. 7. Lumbar spondylosis. 8. Morbid obesity. 9. Anemia S/P PRBC DW RN Subjective Subjective No CP or SOB. On NMB Objective Last 24 Hour Vital Signs Date Time Temp Pulse Resp B/P (MAP) Pulse Ox O2 Delivery O2 Flow Rate FiO2 02/14/19 12:00 98.0 75 20 121/65 (83) 98 02/14/19 09:10 Nasal Cannula 2.0 02/14/19 08:58 76 112/61 02/14/19 08:00 97.5 76 22 112/61 (78) 98 02/14/19 04:00 98.5 72 18 101/72 (82) 98 02/14/19 00:00 98.4 74 18 125/64 (84) 98 02/13/19 21:00 Nasal Cannula 2.0 02/13/19 20:14 95 Nasal Cannula 2.0 28 02/13/19 20:00 98.4 72 18 120/65 (83) 98 02/13/19 16:00 98.2 74 18 110/73 (85) 96 Intake and Output 02/13/19 02/14/19 19:00 07:00 Intake Total 600 ml 1000 ml Output Total 915 ml 766 ml Balance -315 ml 234 ml Intake Oral 600 ml 1000 ml Output Urine Total 900 ml 750 ml Drainage Total 15 ml 16 ml Laboratory Tests Test 02/14/19 05:52 White Blood Count 7.3 K/UL (4.8-10.8) Red Blood Count 2.96 M/UL (4.70-6.10) L Hemoglobin 8.7 G/DL (14.2-18.0) L Hematocrit 27.5 % (42.0-52.0) L Mean Corpuscular Volume 93 FL (80-99) Mean Corpuscular Hemoglobin 29.6 PG (27.0-31.0) Mean Corpuscular Hemoglobin Concent 31.8 G/DL (32.0-36.0) L Red Cell Distribution Width 13.5 % (11.6-14.8) Platelet Count 306 K/UL (150-450) Mean Platelet Volume 4.8 FL (6.5-10.1) L Neutrophils (%) (Auto) 60.8 % (45.0-75.0) Lymphocytes (%) (Auto) 25.2 % (20.0-45.0) Monocytes (%) (Auto) 7.9 % (1.0-10.0) Eosinophils (%) (Auto) 5.5 % (0.0-3.0) H Basophils (%) (Auto) 0.6 % (0.0-2.0) Sodium Level 140 MMOL/L (136-145) Potassium Level 4.7 MMOL/L (3.5-5.1) Chloride Level 103 MMOL/L (98-107) Carbon Dioxide Level 37 MMOL/L (21-32) H Anion Gap 1 mmol/L (5-15) L Blood Urea Nitrogen 15 mg/dL (7-18) Creatinine 0.9 MG/DL (0.55-1.30) Estimat Glomerular Filtration Rate > 60 mL/min (>60) Glucose Level 98 MG/DL (74-106) Calcium Level 8.7 MG/DL (8.5-10.1) Objective HEAD AND NECK: No JVD. LUNGS: Clear. CARDIOVASCULAR: Regular S1 and S2 with no gallop or murmur. ABDOMEN: Very swollen, erythematous, and enlarged scrotum. S/P abdominal surgery with 2 drains. Williamson intact EXTREMITIES: 2+ pitting edema and cellulitis of the legs. Carlos Yee MD Feb 14, 2019 13:26
[2019-02-14] MEDS: fentaNYL Destruction MISC SCH (13:42)
--- NOTE | 2019-02-14 15:44 | Progress Note ---
DATE: 02/14/2019 SUBJECTIVE: This is a 53-year-old male with cellulitis. He is confused and disorganized. He has altered mental status, decline in cognition below his baseline that is why his attending physician has requested daily psychiatric consultation. DIAGNOSIS: Major depressive disorder, mild, recurrent, rule out generalized anxiety disorder. PLAN: Treat him with Cymbalta 30 mg a day. A 20 minutes of cognitive behavioral therapy to help him identify his automatic negative thoughts, help him convert negative thoughts to more positive thoughts to reduce depression, anxiety, and mood lability and help him have more adaptive behavioral pattern. Laney Mcghee M.D. DR: Doretha JOB#: [id number] CC:
[2019-02-14 16:00] VITALS: BP 125/68
--- NOTE | 2019-02-14 16:33 | NUR ---
[employer] SI:CELLULITIS VS: BP 142/67, P 73, T 99.0, RR 19, SpO2 96 RBC 2.96, H&H 8.7/27.5 IS:KEPPRA 1,000mg METHADONE 10mg DILAUDID 0.5mg NORVASC 5mg MED/SURG STATUS
--- NOTE | 2019-02-14 19:31 | NUR ---
HAND-OFF: Report given to MICAELA Kim Resting comfortably in bed, patient, comfortable , stable and free from injury micaela alicea. Addendum: 02/14/19 at 1932 by AMY HUTTON RN RN HAND-OFF: Report given to MICAELA Kim Resting comfortably in bed, patient stable and free from injury micaela alicea.
[2019-02-14 20:00] VITALS: BP 142/67
[2019-02-14] MEDS: Dyna-Hex 2% Top Sol 2oz TOPIC SCH (20:00)
--- NOTE | 2019-02-14 20:00 | NUR ---
NURSE NOTES: Patient received in bed, asleep, no acute distress at this time. PICC line intact, dressing updated. Left leg dressing c/d/i. Abdominal dressing c/d/i with 2 MARQUEZ drains intact. FC draining via gravity. Ivan light in reach. Will monitor.
--- NOTE | 2019-02-14 21:50 | NUR ---
NURSE NOTES: Patient refused cream ordered for "skin folds." Patient stated he no longer has "folds." Wound dressing on left leg cellulitis changed as order. Right leg refused. Abdominal dressing c/d/i. Offered change for abdominal dressing change, pt refused.
[2019-02-15 00:14] VITALS: BP 125/70
[2019-02-15 04:00] VITALS: BP 129/72
[2019-02-15] MEDS: levETIRAcetam 500mg/5ml Liquid ORAL SCH ×3 (06:30→21:19)
--- NOTE | 2019-02-15 07:37 | NUR ---
HAND-OFF: Report given to Toby HINOJOSA.
[2019-02-15 08:00] VITALS: BP 127/68
--- NOTE | 2019-02-15 09:24 | General Progress Note ---
Assessment/Plan Problem List: (1) Seizures ICD Codes: R56.9 - Unspecified convulsions SNOMED: 59766558 (2) Cerebrovascular accident ICD Codes: I63.9 - Cerebral infarction, unspecified SNOMED: 163074457 (3) Peripheral edema ICD Codes: R60.9 - Edema, unspecified SNOMED: 177321883 (4) Cellulitis of groin, left ICD Codes: L03.314 - Cellulitis of groin SNOMED: 74363316 (5) Cellulitis ICD Codes: L03.90 - Cellulitis, unspecified SNOMED: 289949455 (6) COPD (chronic obstructive pulmonary disease) ICD Codes: J44.9 - Chronic obstructive pulmonary disease, unspecified SNOMED: 89709208 (7) Morbid obesity ICD Codes: E66.01 - Morbid (severe) obesity due to excess calories SNOMED: 034770480 (8) Abdominal pannus ICD Codes: E65 - Localized adiposity SNOMED: 6880669410461 (9) Abdominal wall cellulitis ICD Codes: L03.311 - Cellulitis of abdominal wall SNOMED: 38166783 (10) UTI (urinary tract infection) ICD Codes: N39.0 - Urinary tract infection, site not specified SNOMED: 97297377 Status: stable, progressing Assessment/Plan: o2 pulm tx abx pt diet cbc bmp am dc plan snf Subjective Constitutional: Reports: weakness Allergies: Coded Allergies: ASPIRIN (Verified Allergy, Unknown, 07/14/18) KETOROLAC (Verified Allergy, Unknown, 07/14/18) PENICILLINS (Verified Allergy, Unknown, 12/23/18) tolerated Ancef on 08/2018 All Systems: reviewed and negative except above Subjective o2nc sleepy calm Objective Last 24 Hour Vital Signs Date Time Temp Pulse Resp B/P (MAP) Pulse Ox O2 Delivery O2 Flow Rate FiO2 02/15/19 04:00 96.5 65 19 129/72 (91) 95 02/15/19 00:59 96.5 02/15/19 00:14 96.5 59 19 125/70 (88) 95 02/14/19 21:00 Nasal Cannula 2.0 02/14/19 20:24 97 Nasal Cannula 2.0 28 02/14/19 20:00 99.0 73 19 142/67 (92) 96 02/14/19 16:00 98.4 74 19 125/68 (87) 98 02/14/19 12:00 98.0 75 20 121/65 (83) 98 Intake and Output 02/14/19 02/15/19 19:00 07:00 Intake Total 1036 ml 600 ml Output Total 614 ml 861 ml Balance 422 ml -261 ml Intake Oral 1036 ml 600 ml Output Urine Total 600 ml 850 ml Drainage Total 14 ml 11 ml Height (Feet): 6 Height (Inches): 0.00 Weight (Pounds): 418 General Appearance: lethargic EENT: normal ENT inspection Neck: normal alignment Cardiovascular: normal peripheral pulses, normal rate, regular rhythm Respiratory/Chest: chest wall non-tender, lungs clear, normal breath sounds Abdomen: soft, hypoactive bowel sounds, distended Extremities: normal inspection Edema: 1+ Arm (L), 1+ Arm (R), 1+ Leg (L), 1+ Leg (R), 1+ Pedal (L), 1+ Pedal ( R), 1+ Generalized Edema: trace edema Neurologic: motor weakness Skin: normal pigmentation, warm/dry Objective abd dressing c&d Ernesto Nicole DO Feb 15, 2019 09:24
[2019-02-15] MEDS: Miconazole 2% Cream 30gm TOPIC SCH ×2 (11:10→21:00)
[2019-02-15] MEDS: DULoxetine 30mg cap ORAL SCH (11:10)
[2019-02-15 12:00] VITALS: BP 117/88
--- NOTE | 2019-02-15 13:13 | Infectious Diseases Prog Note ---
Assessment/Plan Assessment/Plan Assessment: 02/01 SP Panniculectomy VDRF (post-op)- s/p extubation 02/02 Low grade fever x1 Mild leukocytosis- likely post op- resolved -02/01 CXR: Mild interstitial congestive changes persist, stable sp cx normal resp wesley (prelim) R groin swelling and pain- 2ry from Volume overload Sandy intertrigo; improving B/l Leg cellulitis and panniculitis - in the setting of chronic venous stasis, s /p Rx Active infectious cellulitis essentially resolved. Now he has chronic venous stasis and neuropathic pain with poorly healing wounds. Alot off this is due to the severe swelling in his feet but also he is poorly compliant with wound care instructions. Afebrile No leukocytosis Recent seizure episode -had L side weakness and spasticity CVA HTN bipolar disorder w/ psychotic features tobacco abuse anxiety disorder chronic pain CHF seizure disorder COPD morbid obesity Dm2 HTN SNF resident Plan: -Continue to monitor off abx -02/08 SP IV Vancomycin #8 -02/04 SP Aztreonam #4 -01/26 SP Fluconzole #5 - 01/07/19 SP IV Dapto d# 14 - 01/06/19 S/P Levofloxacin # - 12/25 sp Bactrim #/ and add IV Ancef #3/ for cellulitis - Monitor CBC/CMP, temperatures - aspiration precautions - wound care per hospital protocol -plastic sx, Gen sx f/u Subjective Allergies: Coded Allergies: ASPIRIN (Verified Allergy, Unknown, 07/14/18) KETOROLAC (Verified Allergy, Unknown, 07/14/18) PENICILLINS (Verified Allergy, Unknown, 12/23/18) tolerated Ancef on 08/2018 Subjective afebrile no leukocytosis Objective Vital Signs Last 24 Hour Vital Signs Date Time Temp Pulse Resp B/P (MAP) Pulse Ox O2 Delivery O2 Flow Rate FiO2 02/15/19 11:10 74 127/68 02/15/19 09:00 Nasal Cannula 2.0 02/15/19 08:00 98.4 74 19 127/68 (87) 98 02/15/19 04:00 96.5 65 19 129/72 (91) 95 02/15/19 00:59 96.5 02/15/19 00:14 96.5 59 19 125/70 (88) 95 02/14/19 21:00 Nasal Cannula 2.0 02/14/19 20:24 97 Nasal Cannula 2.0 28 02/14/19 20:00 99.0 73 19 142/67 (92) 96 02/14/19 16:00 98.4 74 19 125/68 (87) 98 Height (Feet): 6 Height (Inches): 0.00 Weight (Pounds): 418 Objective General Appearance: alert, moderate distress, obese Head: atraumatic Eyes: bilateral eye normal inspection ENT: normal ENT inspection, hearing grossly normal, normal voice Neck: normal inspection, full range of motion, supple, no bony tend Respiratory: normal inspection, lungs clear, normal breath sounds, no respiratory distress, no retraction, no wheezing Cardiovascular #1: regular rate, rhythm Gastrointestinal: normal inspection, normal bowel sounds, soft, no guarding, no hernia, other - Left lower abdominal area Genitourinary: other - Swollen groin edematous erythematous enlarged scrotum Musculoskeletal: normal inspection, back normal, normal range of motion Neurologic: normal inspection, alert, responsive, speech normal Psychiatric: depressed affect, anxious Skin: normal inspection, normal color, no rash Current Medications Medications (Trade) Dose Ordered Sig/Luis Route PRN Reason Start Time Stop Time Status Last Admin Dose Admin Acetaminophen (Tylenol) 650 mg Q4H PRN ORAL T>100.5 02/06/19 12:30 03/08/19 12:24 Amlodipine Besylate (Norvasc) 5 mg DAILY ORAL 02/07/19 09:00 02/22/19 08:59 02/15/19 11:10 Chlorhexidine Gluconate (Ruby-Hex 2%) 1 applic DAILY@1999 TOPIC 02/06/19 20:00 02/26/19 19:59 02/13/19 20:26 Dextrose (Dextrose 50%) 25 ml Q30M PRN IV Hypoglycemia 02/06/19 12:30 02/21/19 10:59 Dextrose (Dextrose 50%) 50 ml Q30M PRN IV hypoglycemia 02/06/19 12:30 02/21/19 10:59 Diphenhydramine HCl (Benadryl) 25 mg Q6H PRN IVP Itching 02/14/19 08:15 03/16/19 08:14 Duloxetine HCl (Cymbalta) 30 mg DAILY ORAL 02/07/19 09:00 02/22/19 08:59 02/15/19 11:10 Fentanyl (Duragesic) 1 patch Q72H TDERMAL 02/11/19 13:30 02/18/19 13:29 02/14/19 13:38 Hydromorphone HCl (Dilaudid) 0.5 mg Q3H PRN IV SEVERE BREAKTHRU PAIN (7-10) 02/11/19 17:42 02/17/19 11:41 02/15/19 12:37 Levetiracetam (Keppra) 1,000 mg Q8HR ORAL 02/06/19 14:00 02/21/19 13:59 02/15/19 06:30 Miconazole Nitrate (Miconazole Nitrate) 1 applic Q12HR TOPIC 02/06/19 21:00 03/05/19 20:59 02/14/19 09:02 Miscellaneous Medication (fentaNYL Destruction) 1 ea Q72H MISC 02/14/19 13:30 03/16/19 13:29 02/14/19 13:42 Naloxone HCl (Narcan) 0.1 mg PRN IV Sedation scale 3 or 4 02/06/19 12:30 04/04/19 11:59 Ondansetron HCl (Zofran) 4 mg Q6H PRN IVP Nausea & Vomiting 02/06/19 12:28 03/08/19 12:27 Pantoprazole (Protonix) 40 mg ACBREAKFAST ORAL 02/11/19 06:30 03/13/19 06:29 02/15/19 06:29 Alexa Patterson M.D. Feb 15, 2019 13:13
--- NOTE | 2019-02-15 13:30 | Progress Note ---
DATE: 02/15/2019 SUBJECTIVE: The patient is a 53-year-old male with cellulitis. He continues to have depression, anxiety, worsened by stress of his medical illness. MENTAL STATUS EXAMINATION: This is a 53-year-old male. Appearance is disheveled. Attitude, irritable and agitated. Affect, guarded and restricted. Intellect poor. Mood, depressed and anxious. Motor activity, psychomotor agitation. Insight and judgment is poor. DIAGNOSIS: Major depressive disorder, mild, recurrent, without psychotic features. PLAN: Treat him with Cymbalta 30 mg daily. A 20 minutes of cognitive behavioral therapy to help him identify his automatic negative thoughts, help him to convert his negative thoughts to more positive thoughts to reduce depression, anxiety, and mood lability. A 20 minutes of cognitive behavioral therapy provided. Laney Mcghee M.D. DR: GUTIERREZ JOB#: [id number] CC:
--- NOTE | 2019-02-15 14:41 | Surgery Progress Note ---
Surgery Progress Note Subjective Additional Comments no acute events some serosag drainage from left side of wound with dependant edema as similar but improved to prior drains okay more movement now Objective Last 24 Hour Vital Signs Date Time Temp Pulse Resp B/P (MAP) Pulse Ox O2 Delivery O2 Flow Rate FiO2 02/15/19 12:00 98.0 82 20 117/88 (98) 98 02/15/19 11:10 74 127/68 02/15/19 09:00 Nasal Cannula 2.0 02/15/19 08:00 98.4 74 19 127/68 (87) 98 02/15/19 04:00 96.5 65 19 129/72 (91) 95 02/15/19 00:59 96.5 02/15/19 00:14 96.5 59 19 125/70 (88) 95 02/14/19 21:00 Nasal Cannula 2.0 02/14/19 20:24 97 Nasal Cannula 2.0 28 02/14/19 20:00 99.0 73 19 142/67 (92) 96 02/14/19 16:00 98.4 74 19 125/68 (87) 98 I&O Intake and Output 02/14/19 02/15/19 19:00 07:00 Intake Total 1036 ml 600 ml Output Total 614 ml 861 ml Balance 422 ml -261 ml Intake Oral 1036 ml 600 ml Output Urine Total 600 ml 850 ml Drainage Total 14 ml 11 ml Dressing: saturated Wound: clean, intact Drains: lisbet Cardiovascular: RSR Respiratory: clear Abdomen: soft, non-tender, present bowel sounds, other - edema, non-distended Extremities: edema, no cyanosis Plan Problems: (1) Cellulitis of groin, left (2) Cellulitis Assessment & Plan: chronic cellulitis of pannus s/p panniculectomy now extubated and recovering pain controlled Doing well post op. Patient not to ambulate or lay flat as this would put too much tension on the incision. Ok to do PT in bed. dressings changed wound stable will monitor dressings with saturation serosant left lateral left lateral dependant edema again okay for diet -iv abx -drain care -keep lindsey in place dressing changes ambulate pt/ot -AM labs will follow with recs (3) COPD (chronic obstructive pulmonary disease) (4) Morbid obesity (5) Lumbar spondylosis (6) Right heart failure (7) ADALBERTO (obstructive sleep apnea) (8) Abdominal pannus (9) Seizures (10) Cerebrovascular accident (11) Peripheral edema (12) Abdominal wall cellulitis (13) UTI (urinary tract infection) (14) Hyponatremia (15) Uncontrolled seizures (16) Knee osteomyelits, right Gt Fernandez Feb 15, 2019 14:41
--- NOTE | 2019-02-15 14:46 | Plastic Surgery Progress Note ---
Plastic Surgery-Progress Note Subjective Procedure Performed Panniculectomy Additional Comments Patient is 2 weeks s/p panniculectomy. He is doing well but in the last 36 hours he began to have some drainage from the left lower quadrant incision. No F /C. No elevated WBC. No increase in pain. Objective Last 24 Hour Vital Signs Date Time Temp Pulse Resp B/P (MAP) Pulse Ox O2 Delivery O2 Flow Rate FiO2 02/15/19 12:00 98.0 82 20 117/88 (98) 98 02/15/19 11:10 74 127/68 02/15/19 09:00 Nasal Cannula 2.0 02/15/19 08:00 98.4 74 19 127/68 (87) 98 02/15/19 04:00 96.5 65 19 129/72 (91) 95 02/15/19 00:59 96.5 02/15/19 00:14 96.5 59 19 125/70 (88) 95 02/14/19 21:00 Nasal Cannula 2.0 02/14/19 20:24 97 Nasal Cannula 2.0 28 02/14/19 20:00 99.0 73 19 142/67 (92) 96 02/14/19 16:00 98.4 74 19 125/68 (87) 98 I&O Intake and Output 02/14/19 02/15/19 19:00 07:00 Intake Total 1036 ml 600 ml Output Total 614 ml 861 ml Balance 422 ml -261 ml Intake Oral 1036 ml 600 ml Output Urine Total 600 ml 850 ml Drainage Total 14 ml 11 ml Wound: clean, intact Skin Exam: other - Incision C/D/I. No erythema or fluctuance. There is dependent berenice from his posture in the LLQ. When pressing, dark seromatous fluid exudes. No purulent drainage expressable. Plan Additional Comments Two weeks post op. At this point do not think he has an infection clinically. Likely a seroma that is not being completely evacuated by the drain that's in that location. Will stop the xereform and use dry dressings. Continue PT. If worsens can consider removing some lawrence but at this time this is not indicated. Reggie Roberts MD Feb 15, 2019 14:46
--- NOTE | 2019-02-15 15:04 | NUR ---
NURSE NOTES: handoff received from MICAELA Kim. Patient received sleeping in bed. PICC line is clean dry and intact. No physical signs of distress. Bed in locked and lowest position and call light within reach.
--- NOTE | 2019-02-15 15:12 | NUR ---
RD ASSESSMENT & RECOMMENDATIONS SEE CARE ACTIVITY FOR COMPLETE ASSESSMENT DAILY ESTIMATED NEEDS: Needs based on obesity, pulmonary, 107kg abw 15-20 kcals/kg 9941-5398 total kcals 1-1.5 g protein/kg 107-161 g total protein 15-25ml/kcal mL/kg 7565-0915 total fluid mLs NUTRITION DIAGNOSIS: Decreased sodium, fat, and calorie intake needs R/T cardiac h/o and morbid obesity as evidenced by h/o CHF, CVA, w/ BMI>50, @ 230% of [place] Body Weight CURRENT DIET:REGULAR PO DIET RECOMMENDATIONS: Advance diet per MD -> CARDIAC + CCHO LOW for calorie control ADDITIONAL RECOMMENDATIONS: * Calibrated bedscale wt for accurate CBW * Continue to attempt to educate pt on healthy wt loss -> pt gets easily upset during education * Rec diet change as above to help w/ wt loss * Surgical wound healing: rec MVI x 1, Vit C 250mg QD . .
--- NOTE | 2019-02-15 15:13 | Pulmonology Progress Note ---
Assessment/Plan Problems: (1) Abdominal pannus (2) COPD (chronic obstructive pulmonary disease) (3) ADALBERTO (obstructive sleep apnea) (4) Right heart failure (5) Lumbar spondylosis (6) Morbid obesity Assessment/Plan no fever or leukocytosis decrease Dilaudid to 2 mg needs to be on low calorie diet, increase Fentanyl patch to 100 labs in am off methadone symptomatic treatment decrease dilaudid to -.5 mg q 3 hours. dvt prophylaxis. doing better Subjective ROS Limited/Unobtainable: No Constitutional: Reports: no symptoms HEENT: Repors: no symptoms Allergies: Coded Allergies: ASPIRIN (Verified Allergy, Unknown, 07/14/18) KETOROLAC (Verified Allergy, Unknown, 07/14/18) PENICILLINS (Verified Allergy, Unknown, 12/23/18) tolerated Ancef on 08/2018 Objective Last 24 Hour Vital Signs Date Time Temp Pulse Resp B/P (MAP) Pulse Ox O2 Delivery O2 Flow Rate FiO2 02/15/19 12:00 98.0 82 20 117/88 (98) 98 02/15/19 11:10 74 127/68 02/15/19 09:00 Nasal Cannula 2.0 02/15/19 08:00 98.4 74 19 127/68 (87) 98 02/15/19 04:00 96.5 65 19 129/72 (91) 95 02/15/19 00:59 96.5 02/15/19 00:14 96.5 59 19 125/70 (88) 95 02/14/19 21:00 Nasal Cannula 2.0 02/14/19 20:24 97 Nasal Cannula 2.0 28 02/14/19 20:00 99.0 73 19 142/67 (92) 96 02/14/19 16:00 98.4 74 19 125/68 (87) 98 Intake and Output 02/14/19 02/15/19 19:00 07:00 Intake Total 1036 ml 600 ml Output Total 614 ml 861 ml Balance 422 ml -261 ml Intake Oral 1036 ml 600 ml Output Urine Total 600 ml 850 ml Drainage Total 14 ml 11 ml Objective General Appearance: WD/WN HEENT: normocephalic Respiratory/Chest: chest wall non-tender,decreased breath sounds Cardiovascular: normal peripheral pulses, normal rate Abdomen: normal bowel sounds, soft, massive fat amount Genitourinary: swollen testicles, Extremities: extreme edema Current Medications Medications (Trade) Dose Ordered Sig/Luis Route PRN Reason Start Time Stop Time Status Last Admin Dose Admin Acetaminophen (Tylenol) 650 mg Q4H PRN ORAL T>100.5 02/06/19 12:30 03/08/19 12:24 Amlodipine Besylate (Norvasc) 5 mg DAILY ORAL 02/07/19 09:00 02/22/19 08:59 02/15/19 11:10 Chlorhexidine Gluconate (Ruby-Hex 2%) 1 applic DAILY@1999 TOPIC 02/06/19 20:00 02/26/19 19:59 02/13/19 20:26 Dextrose (Dextrose 50%) 25 ml Q30M PRN IV Hypoglycemia 02/06/19 12:30 02/21/19 10:59 Dextrose (Dextrose 50%) 50 ml Q30M PRN IV hypoglycemia 02/06/19 12:30 02/21/19 10:59 Diphenhydramine HCl (Benadryl) 25 mg Q6H PRN IVP Itching 02/14/19 08:15 03/16/19 08:14 Duloxetine HCl (Cymbalta) 30 mg DAILY ORAL 02/07/19 09:00 02/22/19 08:59 02/15/19 11:10 Fentanyl (Duragesic) 1 patch Q72H TDERMAL 02/11/19 13:30 02/18/19 13:29 02/14/19 13:38 Hydromorphone HCl (Dilaudid) 0.5 mg Q3H PRN IVP SEVERE BREAKTHRU PAIN (7-10) 02/15/19 14:00 02/17/19 11:41 Levetiracetam (Keppra) 1,000 mg Q8HR ORAL 02/06/19 14:00 02/21/19 13:59 02/15/19 15:01 Miconazole Nitrate (Miconazole Nitrate) 1 applic Q12HR TOPIC 02/06/19 21:00 03/05/19 20:59 02/14/19 09:02 Miscellaneous Medication (fentaNYL Destruction) 1 ea Q72H MISC 02/14/19 13:30 03/16/19 13:29 02/14/19 13:42 Naloxone HCl (Narcan) 0.1 mg PRN IV Sedation scale 3 or 4 02/06/19 12:30 04/04/19 11:59 Ondansetron HCl (Zofran) 4 mg Q6H PRN IVP Nausea & Vomiting 02/06/19 12:28 03/08/19 12:27 Pantoprazole (Protonix) 40 mg ACBREAKFAST ORAL 02/11/19 06:30 03/13/19 06:29 02/15/19 06:29 Bill Dixon MD Feb 15, 2019 15:13
--- NOTE | 2019-02-15 15:31 | NUR ---
[employer] NOT[facility] FAXED REFERRAL TO [facility]
[2019-02-15 16:00] VITALS: BP 119/64
[2019-02-15] MEDS: Hydromorphone 0.5mg/0.5ml inj IVP PRN ×3 (16:23→22:14)
--- NOTE | 2019-02-15 16:37 | NUR ---
[employer] SI:CELLULITIS VS: BP 147/74, P 68, T 99.0, RR 18, SpO2 95 IS:PROTONIX 40mg NORVASC 5mg CYMBALTA 30mg DILAUDID 0.5mg METHADONE 10mg MED/SURG STATUS
--- NOTE | 2019-02-15 19:55 | Cardiac Electrophysiology PN ---
Assessment/Plan Assessment/Plan 1. HTN On amlodipine 5 daily . EF 60% 2. Severe bilateral lower extremity edema and cellulitis. On abx per Dr. Patterson. 3. Abdominal pannus. S/P Resection of pannus 02/01/19 Has 2 MARQUEZ drains with drainage 4. COPD and ADALBERTO. 5. S/P Resp failure 6. Right heart failure. 7. Lumbar spondylosis. 8. Morbid obesity. 9. Anemia S/P PRBC DW RN Subjective Subjective No CP or SOB. On NMB. Still has drainage from both JPs. Objective Last 24 Hour Vital Signs Date Time Temp Pulse Resp B/P (MAP) Pulse Ox O2 Delivery O2 Flow Rate FiO2 02/15/19 16:53 98.0 02/15/19 16:00 98.0 78 20 119/64 (82) 96 02/15/19 12:00 98.0 82 20 117/88 (98) 98 02/15/19 11:10 74 127/68 02/15/19 09:00 Nasal Cannula 2.0 02/15/19 08:00 98.4 74 19 127/68 (87) 98 02/15/19 04:00 96.5 65 19 129/72 (91) 95 02/15/19 00:59 96.5 02/15/19 00:14 96.5 59 19 125/70 (88) 95 02/14/19 21:00 Nasal Cannula 2.0 02/14/19 20:24 97 Nasal Cannula 2.0 28 02/14/19 20:00 99.0 73 19 142/67 (92) 96 Intake and Output 02/14/19 02/15/19 18:59 06:59 Intake Total 1036 ml 600 ml Output Total 614 ml 861 ml Balance 422 ml -261 ml Intake Oral 1036 ml 600 ml Output Urine Total 600 ml 850 ml Drainage Total 14 ml 11 ml Objective HEAD AND NECK: No JVD. LUNGS: Clear. CARDIOVASCULAR: Regular S1 and S2 with no gallop or murmur. ABDOMEN: Very swollen, erythematous, and enlarged scrotum. S/P abdominal surgery with 2 drains. Adi intact EXTREMITIES: 2+ pitting edema and cellulitis of the legs. Carlos Yee MD Feb 15, 2019 19:55
--- NOTE | 2019-02-15 19:57 | NUR ---
HAND-OFF: Report given to Mary Anne HINOJOSA. Addendum: 02/15/19 at 9 by Toby Fatima RN Report given to Chasity Coyle
[2019-02-15 20:00] VITALS: BP 129/61
[2019-02-15] MEDS: Dyna-Hex 2% Top Sol 2oz TOPIC SCH (20:04)
[2019-02-16] VITALS: BP 149/70
[2019-02-16] MEDS: Hydromorphone 0.5mg/0.5ml inj IVP PRN ×8 (01:20→22:19)
[2019-02-16 04:00] VITALS: BP 147/74
[2019-02-16] MEDS: levETIRAcetam 500mg/5ml Liquid ORAL SCH ×3 (06:04→21:54)
[2019-02-16 06:52] LABS: BASOPHILS % (AUTO) 0.5 % (0.0-2.0); EOSINOPHILS % (AUTO) 4.4 % (0.0-3.0); HEMATOCRIT 27.6 % (42.0-52.0); HEMOGLOBIN 8.9 G/DL (14.2-18.0); LYMPHOCYTES % (AUTO) 19.5 % (20.0-45.0); MEAN CORPUSCULAR VOLUME 92 FL (80-99); MONOCYTES % (AUTO) 7.3 % (1.0-10.0); NEUTROPHILS % (AUTO) 68.4 % (45.0-75.0); PLATELET COUNT 318 K/UL (150-450); RED BLOOD COUNT 2.98 M/UL (4.70-6.10); RED CELL DISTRIBUTION WIDTH 13.6 % (11.6-14.8); WHITE BLOOD COUNT 8.8 K/UL (4.8-10.8)
--- NOTE | 2019-02-16 07:05 | NUR ---
HAND-OFF: Report given to MICAELA Luis.
[2019-02-16 07:10] LABS: ANION GAP 0 mmol/L (5-15); BLOOD UREA NITROGEN 14 mg/dL (7-18); CALCIUM 8.7 MG/DL (8.5-10.1); CARBON DIOXIDE 35 MMOL/L (21-32); CHLORIDE 103 MMOL/L (98-107); CREATININE 0.9 MG/DL (0.55-1.30); POTASSIUM 4.3 MMOL/L (3.5-5.1); SODIUM 138 MMOL/L (136-145)
--- NOTE | 2019-02-16 07:21 | NUR ---
NURSE NOTES: Handoff received from MICAELA ACOSTA.
[2019-02-16 08:00] VITALS: BP 130/63
[2019-02-16] MEDS: DULoxetine 30mg cap ORAL SCH (08:25)
[2019-02-16] MEDS: Miconazole 2% Cream 30gm TOPIC SCH ×2 (09:00→21:00)
--- NOTE | 2019-02-16 11:15 | Progress Note ---
DATE: 02/16/2019 SUBJECTIVE: This is a 53-year-old male with cellulitis. He is confused and disorganized. He has got no logical plan for his own self-care. He has got feelings of helplessness, hopelessness, low energy, poor appetite, loss of interest in activity. lot of depression worsened by stress of his medical illness and his cellulitis. MENTAL STATUS EXAMINATION: This is a 53-year-old male patient. His appearance is disheveled. Attitude, irritable and agitated. Affect, guarded and restricted. Intellect poor. Mood, depressed and anxious. Motor activity, psychomotor agitation. Attention span is poor. Orientation x2. Speech is low volume. Thought process, disorganized and illogical. Insight and judgment is poor. DIAGNOSIS: Major depressive disorder, mild, recurrent without psychotic features. PLAN: Treat him with Cymbalta at a dose of 30 mg daily. Provided him with 20 minutes of cognitive behavioral therapy to help him identify his automatic negative thoughts, help him convert his negative thoughts to more positive thoughts to reduce depression, anxiety, and mood lability. Chart reviewed. Discussed with staff. Seen and assessed in his room. A 20 minutes of cognitive behavioral therapy provided. Laney Mcghee M.D. : GUTIERREZ JOB#: [id number] CC:
--- NOTE | 2019-02-16 12:06 | Cardiac Electrophysiology PN ---
Assessment/Plan Assessment/Plan 1. HTN On amlodipine 5 daily . EF 60% 2. Severe bilateral lower extremity edema and cellulitis. On abx per Dr. Patterson. 3. Abdominal pannus. S/P Resection of pannus 02/01/19 with 2 MARQUEZ drains 4. COPD and ADALBERTO. 5. S/P Resp failure 6. Right heart failure. 7. Lumbar spondylosis. 8. Morbid obesity. 9. Anemia S/P PRBC DW RN Subjective Subjective No CP or SOB. On NMB. Still has drainage from both JPs.On Abx and pain meds. Objective Last 24 Hour Vital Signs Date Time Temp Pulse Resp B/P (MAP) Pulse Ox O2 Delivery O2 Flow Rate FiO2 02/16/19 09:00 Nasal Cannula 2.0 02/16/19 08:25 68 147/74 02/16/19 08:00 98.7 72 20 130/63 (85) 95 02/16/19 05:00 99.1 02/16/19 04:00 99.0 68 18 147/74 (98) 95 02/16/19 00:00 99.1 75 18 149/70 (96) 95 02/15/19 23:01 96 Nasal Cannula 2.0 28 02/15/19 22:42 Nasal Cannula 2.0 02/15/19 20:00 99.0 87 18 129/61 (83) 95 02/15/19 16:00 98.0 78 20 119/64 (82) 96 Intake and Output 02/15/19 02/16/19 19:00 07:00 Intake Total 600 ml Output Total 450 ml 925 ml Balance 150 ml -925 ml Intake Oral 600 ml Output Urine Total 450 ml 900 ml Drainage Total 25 ml # Voids 4 Laboratory Tests Test 02/16/19 06:05 White Blood Count 8.8 K/UL (4.8-10.8) Red Blood Count 2.98 M/UL (4.70-6.10) L Hemoglobin 8.9 G/DL (14.2-18.0) L Hematocrit 27.6 % (42.0-52.0) L Mean Corpuscular Volume 92 FL (80-99) Mean Corpuscular Hemoglobin 29.9 PG (27.0-31.0) Mean Corpuscular Hemoglobin Concent 32.3 G/DL (32.0-36.0) Red Cell Distribution Width 13.6 % (11.6-14.8) Platelet Count 318 K/UL (150-450) Mean Platelet Volume 4.6 FL (6.5-10.1) L Neutrophils (%) (Auto) 68.4 % (45.0-75.0) Lymphocytes (%) (Auto) 19.5 % (20.0-45.0) L Monocytes (%) (Auto) 7.3 % (1.0-10.0) Eosinophils (%) (Auto) 4.4 % (0.0-3.0) H Basophils (%) (Auto) 0.5 % (0.0-2.0) Sodium Level 138 MMOL/L (136-145) Potassium Level 4.3 MMOL/L (3.5-5.1) Chloride Level 103 MMOL/L (98-107) Carbon Dioxide Level 35 MMOL/L (21-32) H Anion Gap 0 mmol/L (5-15) L Blood Urea Nitrogen 14 mg/dL (7-18) Creatinine 0.9 MG/DL (0.55-1.30) Estimat Glomerular Filtration Rate > 60 mL/min (>60) Glucose Level 95 MG/DL (74-106) Calcium Level 8.7 MG/DL (8.5-10.1) Objective HEAD AND NECK: No JVD. LUNGS: Clear. CARDIOVASCULAR: Regular S1 and S2 with no gallop or murmur. ABDOMEN: Very swollen, erythematous, and enlarged scrotum. S/P abdominal surgery with 2 drains. Glidden intact EXTREMITIES: 2+ pitting edema and cellulitis of the legs. Carlos Yee MD Feb 16, 2019 12:06
--- NOTE | 2019-02-16 12:33 | NUR ---
P.T WEEKLY PROGRESS NOTES: LATE ENTRY 02/15/19 PATIENT WAS SEEN FOR TOTAL OF 7 P.T SESSIONS S/P PANNICULECTOMY PERFORMED ON 02/03/19. PATIENT'S ACTIVITIES WERE LIMITED BY SURGICAL RESTRICTIONS/PRECAUTIONS DUE TO NATURE OF SURGERY, MD CLEARANCE TO INCREASE ACTIVITIES/MOBILITIES WERE RECEIVED ON THE 02/12/19 THEREFORE PATIENTS PROGRESS IN FUNCTIONAL MOBILITY TOLERANCE AND INDEPENDENCE WERE LIMITED THIS PAST WEEK . PATIENT CURRENTLY REQUIRES MAX A X 1-2 TO ROLL/TURN USING THE BED RAIL AND MAX A X 2 TO RISE FROM SUPINE TO/FROM SITTING. PATIENT ABLE TO SIT AT THE EOB UNSUPPORTED HOWEVER UNABLE TO STAND AND TRANSFER DUE TO PAIN ALONG THE ABDOMINAL INCISION AND L KNEE RATED FROM 3-10/10 WELL FEAR FALLING. WILL CONTINUE WITH POC WITH PROGRESSION OF ACTIVITIES. PATIENT IS HIGHLY MOTIVATED TO GET BETTER AND RETURN TO PLOF. PATIENT SHOULD CONTINUE TO BENEFIT FROM SKILLED P.T SERVICES. RECOMMEND INPATIENT REHAB FOR INTENSIVE THERAPY AT D/C.
--- NOTE | 2019-02-16 12:55 | Pulmonology Progress Note ---
Assessment/Plan Problems: (1) Abdominal pannus (2) COPD (chronic obstructive pulmonary disease) (3) ADALBERTO (obstructive sleep apnea) (4) Right heart failure (5) Lumbar spondylosis (6) Morbid obesity Assessment/Plan no fever or leukocytosis decrease Dilaudid to 2 mg needs to be on low calorie diet, increase Fentanyl patch to 50 labs in am off methadone symptomatic treatment decrease dilaudid to -.5 mg q 3 hours. dvt prophylaxis. doing better Subjective ROS Limited/Unobtainable: No Constitutional: Reports: no symptoms HEENT: Repors: no symptoms Respiratory: Reports: no symptoms Cardiovascular: Reports: no symptoms Allergies: Coded Allergies: ASPIRIN (Verified Allergy, Unknown, 07/14/18) KETOROLAC (Verified Allergy, Unknown, 07/14/18) PENICILLINS (Verified Allergy, Unknown, 12/23/18) tolerated Ancef on 08/2018 Objective Last 24 Hour Vital Signs Date Time Temp Pulse Resp B/P (MAP) Pulse Ox O2 Delivery O2 Flow Rate FiO2 02/16/19 12:00 02/16/19 09:00 Nasal Cannula 2.0 02/16/19 08:25 68 147/74 02/16/19 08:00 98.7 72 20 130/63 (85) 95 02/16/19 05:00 99.1 02/16/19 04:00 99.0 68 18 147/74 (98) 95 02/16/19 00:00 99.1 75 18 149/70 (96) 95 02/15/19 23:01 96 Nasal Cannula 2.0 28 02/15/19 22:42 Nasal Cannula 2.0 02/15/19 20:00 99.0 87 18 129/61 (83) 95 02/15/19 16:00 98.0 78 20 119/64 (82) 96 Intake and Output 02/15/19 02/16/19 19:00 07:00 Intake Total 600 ml Output Total 450 ml 925 ml Balance 150 ml -925 ml Intake Oral 600 ml Output Urine Total 450 ml 900 ml Drainage Total 25 ml # Voids 4 Objective General Appearance: WD/WN HEENT: normocephalic Respiratory/Chest: chest wall non-tender,decreased breath sounds Cardiovascular: normal peripheral pulses, normal rate Abdomen: normal bowel sounds, soft, massive fat amount Genitourinary: swollen testicles, Extremities: extreme edema Laboratory Tests 02/16/19 06:05: White Blood Count 8.8, Red Blood Count 2.98L, Hemoglobin 8.9L, Hematocrit 27.6L , Mean Corpuscular Volume 92, Mean Corpuscular Hemoglobin 29.9, Mean Corpuscular Hemoglobin Concent 32.3, Red Cell Distribution Width 13.6, Platelet Count 318, Mean Platelet Volume 4.6L, Neutrophils (%) (Auto) 68.4, Lymphocytes ( %) (Auto) 19.5L, Monocytes (%) (Auto) 7.3, Eosinophils (%) (Auto) 4.4H, Basophils (%) (Auto) 0.5, Sodium Level 138, Potassium Level 4.3, Chloride Level 103, Carbon Dioxide Level 35H, Anion Gap 0L, Blood Urea Nitrogen 14, Creatinine 0.9, Estimat Glomerular Filtration Rate > 60, Glucose Level 95, Calcium Level 8.7 Current Medications Medications (Trade) Dose Ordered Sig/Luis Route PRN Reason Start Time Stop Time Status Last Admin Dose Admin Acetaminophen (Tylenol) 650 mg Q4H PRN ORAL T>100.5 02/06/19 12:30 03/08/19 12:24 Amlodipine Besylate (Norvasc) 5 mg DAILY ORAL 02/07/19 09:00 02/22/19 08:59 02/16/19 08:25 Chlorhexidine Gluconate (Ruby-Hex 2%) 1 applic DAILY@2000 TOPIC 02/06/19 20:00 02/26/19 19:59 02/15/19 20:04 Dextrose (Dextrose 50%) 25 ml Q30M PRN IV Hypoglycemia 02/06/19 12:30 02/21/19 10:59 Dextrose (Dextrose 50%) 50 ml Q30M PRN IV hypoglycemia 02/06/19 12:30 02/21/19 10:59 Diphenhydramine HCl (Benadryl) 25 mg Q6H PRN IVP Itching 02/14/19 08:15 03/16/19 08:14 Duloxetine HCl (Cymbalta) 30 mg DAILY ORAL 02/07/19 09:00 02/22/19 08:59 02/16/19 08:25 Fentanyl (Duragesic) 1 patch Q72H TDERMAL 02/11/19 13:30 02/18/19 13:29 02/14/19 13:38 Hydromorphone HCl (Dilaudid) 0.5 mg Q3H PRN IVP SEVERE BREAKTHRU PAIN (7-10) 02/15/19 14:00 02/17/19 11:41 02/16/19 10:34 Levetiracetam (Keppra) 1,000 mg Q8HR ORAL 02/06/19 14:00 02/21/19 13:59 02/16/19 06:04 Miconazole Nitrate (Miconazole Nitrate) 1 applic Q12HR TOPIC 02/06/19 21:00 03/05/19 20:59 02/14/19 09:02 Miscellaneous Medication (fentaNYL Destruction) 1 ea Q72H MISC 02/14/19 13:30 03/16/19 13:29 02/14/19 13:42 Naloxone HCl (Narcan) 0.1 mg PRN IV Sedation scale 3 or 4 02/06/19 12:30 04/04/19 11:59 Ondansetron HCl (Zofran) 4 mg Q6H PRN IVP Nausea & Vomiting 02/06/19 12:28 03/08/19 12:27 Pantoprazole (Protonix) 40 mg ACBREAKFAST ORAL 02/11/19 06:30 03/13/19 06:29 02/16/19 06:03 Bill Dixon MD Feb 16, 2019 12:55
--- NOTE | 2019-02-16 12:59 | Surgery Progress Note ---
Surgery Progress Note Subjective Additional Comments pain same comfortable dressings saturated h/h stable drains serous Objective Last 24 Hour Vital Signs Date Time Temp Pulse Resp B/P (MAP) Pulse Ox O2 Delivery O2 Flow Rate FiO2 02/16/19 12:00 02/16/19 09:00 Nasal Cannula 2.0 02/16/19 08:25 68 147/74 02/16/19 08:00 98.7 72 20 130/63 (85) 95 02/16/19 05:00 99.1 02/16/19 04:00 99.0 68 18 147/74 (98) 95 02/16/19 00:00 99.1 75 18 149/70 (96) 95 02/15/19 23:01 96 Nasal Cannula 2.0 28 02/15/19 22:42 Nasal Cannula 2.0 02/15/19 20:00 99.0 87 18 129/61 (83) 95 02/15/19 16:00 98.0 78 20 119/64 (82) 96 I&O Intake and Output 02/15/19 02/16/19 19:00 07:00 Intake Total 600 ml Output Total 450 ml 925 ml Balance 150 ml -925 ml Intake Oral 600 ml Output Urine Total 450 ml 900 ml Drainage Total 25 ml # Voids 4 Dressing: saturated Wound: clean Drains: lisbet Cardiovascular: RSR Respiratory: clear Abdomen: soft, non-tender, present bowel sounds Extremities: edema, no cyanosis Laboratory Tests Test 02/16/19 06:05 White Blood Count 8.8 K/UL (4.8-10.8) Red Blood Count 2.98 M/UL (4.70-6.10) L Hemoglobin 8.9 G/DL (14.2-18.0) L Hematocrit 27.6 % (42.0-52.0) L Mean Corpuscular Volume 92 FL (80-99) Mean Corpuscular Hemoglobin 29.9 PG (27.0-31.0) Mean Corpuscular Hemoglobin Concent 32.3 G/DL (32.0-36.0) Red Cell Distribution Width 13.6 % (11.6-14.8) Platelet Count 318 K/UL (150-450) Mean Platelet Volume 4.6 FL (6.5-10.1) L Neutrophils (%) (Auto) 68.4 % (45.0-75.0) Lymphocytes (%) (Auto) 19.5 % (20.0-45.0) L Monocytes (%) (Auto) 7.3 % (1.0-10.0) Eosinophils (%) (Auto) 4.4 % (0.0-3.0) H Basophils (%) (Auto) 0.5 % (0.0-2.0) Sodium Level 138 MMOL/L (136-145) Potassium Level 4.3 MMOL/L (3.5-5.1) Chloride Level 103 MMOL/L (98-107) Carbon Dioxide Level 35 MMOL/L (21-32) H Anion Gap 0 mmol/L (5-15) L Blood Urea Nitrogen 14 mg/dL (7-18) Creatinine 0.9 MG/DL (0.55-1.30) Estimat Glomerular Filtration Rate > 60 mL/min (>60) Glucose Level 95 MG/DL (74-106) Calcium Level 8.7 MG/DL (8.5-10.1) Plan Problems: (1) Cellulitis of groin, left (2) Cellulitis Assessment & Plan: chronic cellulitis of pannus s/p panniculectomy now extubated and recovering pain controlled Doing well post op. Patient not to ambulate or lay flat as this would put too much tension on the incision. Ok to do PT in bed. dressings changed wound stable will monitor dressings with saturation serosant left lateral left lateral dependant edema again okay for diet -iv abx -drain care -keep lindsey in place dressing changes ambulate pt/ot -AM labs will follow with recs (3) COPD (chronic obstructive pulmonary disease) (4) Morbid obesity (5) Lumbar spondylosis (6) Right heart failure (7) ADALBERTO (obstructive sleep apnea) (8) Abdominal pannus (9) Seizures (10) Cerebrovascular accident (11) Peripheral edema (12) Abdominal wall cellulitis (13) UTI (urinary tract infection) (14) Hyponatremia (15) Uncontrolled seizures (16) Knee osteomyelits, right GaryAdina holcombya Feb 16, 2019 12:59
[2019-02-16] MEDS ORDERED: fentaNYL Destruction MISC SCH (13:00)
[2019-02-16] MEDS ORDERED: Naloxone 0.4mg/ml Inj IV PRN (13:00)
--- NOTE | 2019-02-16 13:29 | Infectious Diseases Prog Note ---
Assessment/Plan Assessment/Plan Assessment: 02/01 SP Panniculectomy VDRF (post-op)- s/p extubation 02/02 Low grade fever x1 Mild leukocytosis- likely post op- resolved -02/01 CXR: Mild interstitial congestive changes persist, stable sp cx normal resp wesley (prelim) R groin swelling and pain- 2ry from Volume overload Sandy intertrigo; improving B/l Leg cellulitis and panniculitis - in the setting of chronic venous stasis, s /p Rx Active infectious cellulitis essentially resolved. Now he has chronic venous stasis and neuropathic pain with poorly healing wounds. Alot off this is due to the severe swelling in his feet but also he is poorly compliant with wound care instructions. Afebrile No leukocytosis Recent seizure episode -had L side weakness and spasticity CVA HTN bipolar disorder w/ psychotic features tobacco abuse anxiety disorder chronic pain CHF seizure disorder COPD morbid obesity Dm2 HTN SNF resident Plan: -Continue to monitor off abx -02/08 SP IV Vancomycin #8 -02/04 SP Aztreonam #4 -01/26 SP Fluconzole #5 - 01/07/19 SP IV Dapto d# 14 - 01/06/19 S/P Levofloxacin # - 12/25 sp Bactrim #/ and add IV Ancef #3/ for cellulitis - Monitor CBC/CMP, temperatures - aspiration precautions - wound care per hospital protocol -plastic sx, Gen sx f/u Subjective Allergies: Coded Allergies: ASPIRIN (Verified Allergy, Unknown, 07/14/18) KETOROLAC (Verified Allergy, Unknown, 07/14/18) PENICILLINS (Verified Allergy, Unknown, 12/23/18) tolerated Ancef on 08/2018 Subjective afebrile no leukocytosis Objective Vital Signs Last 24 Hour Vital Signs Date Time Temp Pulse Resp B/P (MAP) Pulse Ox O2 Delivery O2 Flow Rate FiO2 02/16/19 12:00 02/16/19 09:00 Nasal Cannula 2.0 02/16/19 08:25 68 147/74 02/16/19 08:00 98.7 72 20 130/63 (85) 95 02/16/19 05:00 99.1 02/16/19 04:00 99.0 68 18 147/74 (98) 95 02/16/19 00:00 99.1 75 18 149/70 (96) 95 02/15/19 23:01 96 Nasal Cannula 2.0 28 02/15/19 22:42 Nasal Cannula 2.0 02/15/19 20:00 99.0 87 18 129/61 (83) 95 02/15/19 16:00 98.0 78 20 119/64 (82) 96 Height (Feet): 6 Height (Inches): 0.00 Weight (Pounds): 418 Objective General Appearance: alert, moderate distress, obese Head: atraumatic Eyes: bilateral eye normal inspection ENT: normal ENT inspection, hearing grossly normal, normal voice Neck: normal inspection, full range of motion, supple, no bony tend Respiratory: normal inspection, lungs clear, normal breath sounds, no respiratory distress, no retraction, no wheezing Cardiovascular #1: regular rate, rhythm Gastrointestinal: normal inspection, normal bowel sounds, soft, no guarding, no hernia, other - Left lower abdominal area Genitourinary: other - Swollen groin edematous erythematous enlarged scrotum Musculoskeletal: normal inspection, back normal, normal range of motion Neurologic: normal inspection, alert, responsive, speech normal Psychiatric: depressed affect, anxious Skin: normal inspection, normal color, no rash Laboratory Tests Test 02/16/19 06:05 White Blood Count 8.8 K/UL (4.8-10.8) Red Blood Count 2.98 M/UL (4.70-6.10) L Hemoglobin 8.9 G/DL (14.2-18.0) L Hematocrit 27.6 % (42.0-52.0) L Mean Corpuscular Volume 92 FL (80-99) Mean Corpuscular Hemoglobin 29.9 PG (27.0-31.0) Mean Corpuscular Hemoglobin Concent 32.3 G/DL (32.0-36.0) Red Cell Distribution Width 13.6 % (11.6-14.8) Platelet Count 318 K/UL (150-450) Mean Platelet Volume 4.6 FL (6.5-10.1) L Neutrophils (%) (Auto) 68.4 % (45.0-75.0) Lymphocytes (%) (Auto) 19.5 % (20.0-45.0) L Monocytes (%) (Auto) 7.3 % (1.0-10.0) Eosinophils (%) (Auto) 4.4 % (0.0-3.0) H Basophils (%) (Auto) 0.5 % (0.0-2.0) Sodium Level 138 MMOL/L (136-145) Potassium Level 4.3 MMOL/L (3.5-5.1) Chloride Level 103 MMOL/L (98-107) Carbon Dioxide Level 35 MMOL/L (21-32) H Anion Gap 0 mmol/L (5-15) L Blood Urea Nitrogen 14 mg/dL (7-18) Creatinine 0.9 MG/DL (0.55-1.30) Estimat Glomerular Filtration Rate > 60 mL/min (>60) Glucose Level 95 MG/DL (74-106) Calcium Level 8.7 MG/DL (8.5-10.1) Current Medications Medications (Trade) Dose Ordered Sig/Luis Route PRN Reason Start Time Stop Time Status Last Admin Dose Admin Acetaminophen (Tylenol) 650 mg Q4H PRN ORAL T>100.5 02/06/19 12:30 03/08/19 12:24 Amlodipine Besylate (Norvasc) 5 mg DAILY ORAL 02/07/19 09:00 02/22/19 08:59 02/16/19 08:25 Chlorhexidine Gluconate (Ruby-Hex 2%) 1 applic DAILY@1999 TOPIC 02/06/19 20:00 02/26/19 19:59 02/15/19 20:04 Dextrose (Dextrose 50%) 25 ml Q30M PRN IV Hypoglycemia 02/06/19 12:30 02/21/19 10:59 Dextrose (Dextrose 50%) 50 ml Q30M PRN IV hypoglycemia 02/06/19 12:30 02/21/19 10:59 Diphenhydramine HCl (Benadryl) 25 mg Q6H PRN IVP Itching 02/14/19 08:15 03/16/19 08:14 Duloxetine HCl (Cymbalta) 30 mg DAILY ORAL 02/07/19 09:00 02/22/19 08:59 02/16/19 08:25 Fentanyl (Duragesic) 1 patch Q72H TDERMAL 02/11/19 13:30 02/17/19 13:29 02/14/19 13:38 Fentanyl (Duragesic) 1 patch Q72H TDERMAL 02/17/19 13:30 02/24/19 13:29 Hydromorphone HCl (Dilaudid) 0.5 mg Q3H PRN IVP SEVERE BREAKTHRU PAIN (7-10) 02/15/19 14:00 02/17/19 11:41 02/16/19 10:34 Levetiracetam (Keppra) 1,000 mg Q8HR ORAL 02/06/19 14:00 02/21/19 13:59 02/16/19 06:04 Miconazole Nitrate (Miconazole Nitrate) 1 applic Q12HR TOPIC 02/06/19 21:00 03/05/19 20:59 02/14/19 09:02 Miscellaneous Medication (fentaNYL Destruction) 1 ea Q72H MISC 02/14/19 13:30 03/16/19 13:29 02/14/19 13:42 Naloxone HCl (Narcan) 0.1 mg PRN IV Sedation scale 3 or 4 02/06/19 12:30 04/04/19 11:59 Ondansetron HCl (Zofran) 4 mg Q6H PRN IVP Nausea & Vomiting 02/06/19 12:28 03/08/19 12:27 Pantoprazole (Protonix) 40 mg ACBREAKFAST ORAL 02/11/19 06:30 03/13/19 06:29 02/16/19 06:03 Alexa Patterson M.D. Feb 16, 2019 13:29
[2019-02-16 16:00] VITALS: BP 129/71
--- NOTE | 2019-02-16 16:09 | General Progress Note ---
Assessment/Plan Problem List: (1) Seizures ICD Codes: R56.9 - Unspecified convulsions SNOMED: 14373168 (2) Cerebrovascular accident ICD Codes: I63.9 - Cerebral infarction, unspecified SNOMED: 707556387 (3) Peripheral edema ICD Codes: R60.9 - Edema, unspecified SNOMED: 267831853 (4) Cellulitis of groin, left ICD Codes: L03.314 - Cellulitis of groin SNOMED: 59487782 (5) Cellulitis ICD Codes: L03.90 - Cellulitis, unspecified SNOMED: 192959735 (6) COPD (chronic obstructive pulmonary disease) ICD Codes: J44.9 - Chronic obstructive pulmonary disease, unspecified SNOMED: 14921224 (7) Morbid obesity ICD Codes: E66.01 - Morbid (severe) obesity due to excess calories SNOMED: 457535432 (8) Abdominal pannus ICD Codes: E65 - Localized adiposity SNOMED: 0599813075743 (9) Abdominal wall cellulitis ICD Codes: L03.311 - Cellulitis of abdominal wall SNOMED: 41463961 (10) UTI (urinary tract infection) ICD Codes: N39.0 - Urinary tract infection, site not specified SNOMED: 39137511 Status: stable, progressing Assessment/Plan: o2 pulm tx abx pt diet cbc bmp am dc plan snf Subjective Constitutional: Reports: weakness Allergies: Coded Allergies: ASPIRIN (Verified Allergy, Unknown, 07/14/18) KETOROLAC (Verified Allergy, Unknown, 07/14/18) PENICILLINS (Verified Allergy, Unknown, 12/23/18) tolerated Ancef on 08/2018 All Systems: reviewed and negative except above Subjective o2nc sleepy calm Objective Last 24 Hour Vital Signs Date Time Temp Pulse Resp B/P (MAP) Pulse Ox O2 Delivery O2 Flow Rate FiO2 02/16/19 12:00 02/16/19 09:00 Nasal Cannula 2.0 02/16/19 08:25 68 147/74 02/16/19 08:00 98.7 72 20 130/63 (85) 95 02/16/19 05:00 99.1 02/16/19 04:00 99.0 68 18 147/74 (98) 95 02/16/19 00:00 99.1 75 18 149/70 (96) 95 02/15/19 23:01 96 Nasal Cannula 2.0 28 02/15/19 22:42 Nasal Cannula 2.0 02/15/19 20:00 99.0 87 18 129/61 (83) 95 Intake and Output 02/15/19 02/16/19 19:00 07:00 Intake Total 600 ml Output Total 450 ml 925 ml Balance 150 ml -925 ml Intake Oral 600 ml Output Urine Total 450 ml 900 ml Drainage Total 25 ml # Voids 4 Laboratory Tests 02/16/19 06:05: White Blood Count 8.8, Red Blood Count 2.98L, Hemoglobin 8.9L, Hematocrit 27.6L , Mean Corpuscular Volume 92, Mean Corpuscular Hemoglobin 29.9, Mean Corpuscular Hemoglobin Concent 32.3, Red Cell Distribution Width 13.6, Platelet Count 318, Mean Platelet Volume 4.6L, Neutrophils (%) (Auto) 68.4, Lymphocytes ( %) (Auto) 19.5L, Monocytes (%) (Auto) 7.3, Eosinophils (%) (Auto) 4.4H, Basophils (%) (Auto) 0.5, Sodium Level 138, Potassium Level 4.3, Chloride Level 103, Carbon Dioxide Level 35H, Anion Gap 0L, Blood Urea Nitrogen 14, Creatinine 0.9, Estimat Glomerular Filtration Rate > 60, Glucose Level 95, Calcium Level 8.7 Height (Feet): 6 Height (Inches): 0.00 Weight (Pounds): 418 General Appearance: lethargic EENT: normal ENT inspection Neck: normal alignment Cardiovascular: normal peripheral pulses, normal rate, regular rhythm Respiratory/Chest: chest wall non-tender, lungs clear, normal breath sounds Abdomen: soft, decreased bowel sounds Extremities: normal inspection Edema: 1+ Arm (L), 1+ Arm (R), 1+ Leg (L), 1+ Leg (R), 1+ Pedal (L), 1+ Pedal ( R), 1+ Generalized Edema: trace edema Neurologic: motor weakness Skin: normal pigmentation, warm/dry Objective abd dressing c&d Ernesto Nicole DO Feb 16, 2019 16:09
--- NOTE | 2019-02-16 16:43 | NUR ---
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
[2019-02-16 20:00] VITALS: BP 131/74
[2019-02-16] MEDS: Dyna-Hex 2% Top Sol 2oz TOPIC SCH (20:00)
--- NOTE | 2019-02-16 20:20 | NUR ---
HAND-OFF: Report given to Kirsty RN
--- NOTE | 2019-02-16 20:21 | NUR ---
NURSE NOTES: RECEIVED PT FROM MICAELA MENDOZA. PT IS ASLEEP, ON ROOM AIR, NO ACUTE DISTRESS NOTED. MORGAN IS INTACT AND PATENT, DRAINING WELL. MARQUEZ DRAINS ARE INTACT. PICC LINE NOTED ON LEFT UPPER ARM, INTACT AND PATENT. FLUSHED BOTH LINES. DRESSINGS ON LEFT LEG AND ABDOMEN ARE INTACT AND DRY. BED IS LOCKED AT THE LOWEST POSITION, BED ALARMS ACTIVE, SIDE RAILS UP X2, AND CALL LIGHT IS WITHIN REACH. WILL CONTINUE TO MONITOR.
[2019-02-17] VITALS: BP 143/80
[2019-02-17] MEDS: Hydromorphone 0.5mg/0.5ml inj IVP PRN ×4 (01:25→10:45)
[2019-02-17 04:00] VITALS: BP 140/63
[2019-02-17 05:57] LABS: BASOPHILS % (AUTO) 0.8 % (0.0-2.0); EOSINOPHILS % (AUTO) 3.5 % (0.0-3.0); HEMATOCRIT 29.4 % (42.0-52.0); HEMOGLOBIN 9.3 G/DL (14.2-18.0); LYMPHOCYTES % (AUTO) 19.1 % (20.0-45.0); MEAN CORPUSCULAR VOLUME 92 FL (80-99); MONOCYTES % (AUTO) 7.7 % (1.0-10.0); NEUTROPHILS % (AUTO) 68.8 % (45.0-75.0); PLATELET COUNT 330 K/UL (150-450); RED BLOOD COUNT 3.21 M/UL (4.70-6.10); RED CELL DISTRIBUTION WIDTH 13.3 % (11.6-14.8); WHITE BLOOD COUNT 8.8 K/UL (4.8-10.8)
[2019-02-17] MEDS: levETIRAcetam 500mg/5ml Liquid ORAL SCH ×3 (06:12→21:23)
[2019-02-17 06:19] LABS: ANION GAP 4 mmol/L (5-15); BLOOD UREA NITROGEN 14 mg/dL (7-18); CALCIUM 8.5 MG/DL (8.5-10.1); CARBON DIOXIDE 32 MMOL/L (21-32); CHLORIDE 102 MMOL/L (98-107); CREATININE 0.8 MG/DL (0.55-1.30); SODIUM 138 MMOL/L (136-145)
--- NOTE | 2019-02-17 07:32 | NUR ---
HAND-OFF: Report given to MICAELA JOHN.
--- NOTE | 2019-02-17 07:36 | NUR ---
NURSE NOTES: Received from Kirsty, RN. Patient is in bed, AO x 4. Room air. No acute distress noted. MARQUEZ drains are intact on bilateral abdomen. PICC line on L UA intact and patent. Call light within reach. Bed in the lowest, locked, and alarm on. Will continue to monitor.
[2019-02-17 08:00] VITALS: BP 142/66
[2019-02-17] MEDS: DULoxetine 30mg cap ORAL SCH (08:54)
[2019-02-17] MEDS: Miconazole 2% Cream 30gm TOPIC SCH ×2 (09:00→20:19)
--- NOTE | 2019-02-17 09:18 | General Progress Note ---
Assessment/Plan Problem List: (1) Seizures ICD Codes: R56.9 - Unspecified convulsions SNOMED: 52202368 (2) Cerebrovascular accident ICD Codes: I63.9 - Cerebral infarction, unspecified SNOMED: 815762895 (3) Peripheral edema ICD Codes: R60.9 - Edema, unspecified SNOMED: 137787824 (4) Cellulitis of groin, left ICD Codes: L03.314 - Cellulitis of groin SNOMED: 58083422 (5) Cellulitis ICD Codes: L03.90 - Cellulitis, unspecified SNOMED: 070403011 (6) COPD (chronic obstructive pulmonary disease) ICD Codes: J44.9 - Chronic obstructive pulmonary disease, unspecified SNOMED: 83163321 (7) Morbid obesity ICD Codes: E66.01 - Morbid (severe) obesity due to excess calories SNOMED: 304274639 (8) Abdominal pannus ICD Codes: E65 - Localized adiposity SNOMED: 5813982224913 (9) Abdominal wall cellulitis ICD Codes: L03.311 - Cellulitis of abdominal wall SNOMED: 19921349 (10) UTI (urinary tract infection) ICD Codes: N39.0 - Urinary tract infection, site not specified SNOMED: 56433474 Status: stable, progressing Assessment/Plan: o2 pulm tx abx pt diet cbc bmp am dc to snf if all clear Subjective Constitutional: Reports: weakness Allergies: Coded Allergies: ASPIRIN (Verified Allergy, Unknown, 07/14/18) KETOROLAC (Verified Allergy, Unknown, 07/14/18) PENICILLINS (Verified Allergy, Unknown, 12/23/18) tolerated Ancef on 08/2018 All Systems: reviewed and negative except above Subjective o2nc sleepy calm Objective Last 24 Hour Vital Signs Date Time Temp Pulse Resp B/P (MAP) Pulse Ox O2 Delivery O2 Flow Rate FiO2 02/17/19 08:53 76 142/66 02/17/19 08:00 98.9 18 142/66 (91) 96 02/17/19 04:00 99.8 76 18 140/63 (88) 95 02/17/19 00:00 99.5 83 20 143/80 (101) 96 02/16/19 21:00 Nasal Cannula 2.0 02/16/19 20:18 96 Nasal Cannula 2.0 28 02/16/19 20:00 98.7 74 20 131/74 (93) 96 02/16/19 16:00 98.2 70 20 129/71 (90) 94 02/16/19 12:00 Intake and Output 02/16/19 02/17/19 19:00 07:00 Intake Total 700 ml Output Total 1510 ml 1300 ml Balance -810 ml -1300 ml Intake Oral 700 ml Output Urine Total 1500 ml 1300 ml Drainage Total 10 ml Laboratory Tests 02/17/19 05:39: White Blood Count 8.8, Red Blood Count 3.21L, Hemoglobin 9.3L, Hematocrit 29.4L , Mean Corpuscular Volume 92, Mean Corpuscular Hemoglobin 29.0, Mean Corpuscular Hemoglobin Concent 31.6L, Red Cell Distribution Width 13.3, Platelet Count 330, Mean Platelet Volume 4.6L, Neutrophils (%) (Auto) 68.8, Lymphocytes (%) (Auto) 19.1L, Monocytes (%) (Auto) 7.7, Eosinophils (%) (Auto) 3.5H, Basophils (%) (Auto) 0.8, Sodium Level 138, Potassium Level 4.0, Chloride Level 102, Carbon Dioxide Level 32, Anion Gap 4L, Blood Urea Nitrogen 14, Creatinine 0.8, Estimat Glomerular Filtration Rate > 60, Glucose Level 95, Calcium Level 8.5 Height (Feet): 6 Height (Inches): 0.00 Weight (Pounds): 418 General Appearance: lethargic EENT: normal ENT inspection Neck: normal alignment Cardiovascular: normal peripheral pulses, normal rate, regular rhythm Respiratory/Chest: chest wall non-tender, lungs clear, normal breath sounds Abdomen: soft, distended Extremities: normal inspection Edema: 1+ Arm (L), 1+ Arm (R), 1+ Leg (L), 1+ Leg (R), 1+ Pedal (L), 1+ Pedal ( R), 1+ Generalized Edema: trace edema Neurologic: responsive, motor weakness Skin: normal pigmentation, warm/dry Objective abd dressing c&d Ernesto Nicole DO Feb 17, 2019 09:18
--- NOTE | 2019-02-17 11:38 | Pulmonology Progress Note ---
Assessment/Plan Problems: (1) Abdominal pannus (2) COPD (chronic obstructive pulmonary disease) (3) ADALBERTO (obstructive sleep apnea) (4) Right heart failure (5) Lumbar spondylosis (6) Morbid obesity Assessment/Plan no fever or leukocytosis decrease Dilaudid to 2 mg needs to be on low calorie diet, increase Fentanyl patch to 50 labs in am restart methadone prn symptomatic treatment decrease dilaudid to -.5 mg q 3 hours. dvt prophylaxis. doing better Subjective ROS Limited/Unobtainable: No Constitutional: Reports: no symptoms HEENT: Repors: no symptoms Respiratory: Reports: no symptoms Allergies: Coded Allergies: ASPIRIN (Verified Allergy, Unknown, 07/14/18) KETOROLAC (Verified Allergy, Unknown, 07/14/18) PENICILLINS (Verified Allergy, Unknown, 12/23/18) tolerated Ancef on 08/2018 Objective Last 24 Hour Vital Signs Date Time Temp Pulse Resp B/P (MAP) Pulse Ox O2 Delivery O2 Flow Rate FiO2 02/17/19 09:00 Nasal Cannula 2.0 02/17/19 08:53 76 142/66 02/17/19 08:00 98.9 18 142/66 (91) 96 02/17/19 04:00 99.8 76 18 140/63 (88) 95 02/17/19 00:00 99.5 83 20 143/80 (101) 96 02/16/19 21:00 Nasal Cannula 2.0 02/16/19 20:18 96 Nasal Cannula 2.0 28 02/16/19 20:00 98.7 74 20 131/74 (93) 96 02/16/19 16:00 98.2 70 20 129/71 (90) 94 02/16/19 12:00 Intake and Output 02/16/19 02/17/19 19:00 07:00 Intake Total 700 ml Output Total 1510 ml 1300 ml Balance -810 ml -1300 ml Intake Oral 700 ml Output Urine Total 1500 ml 1300 ml Drainage Total 10 ml Objective General Appearance: WD/WN HEENT: normocephalic Respiratory/Chest: chest wall non-tender,decreased breath sounds Cardiovascular: normal peripheral pulses, normal rate Abdomen: normal bowel sounds, soft, massive fat amount Genitourinary: swollen testicles, Extremities: extreme edema Laboratory Tests 02/17/19 05:39: White Blood Count 8.8, Red Blood Count 3.21L, Hemoglobin 9.3L, Hematocrit 29.4L , Mean Corpuscular Volume 92, Mean Corpuscular Hemoglobin 29.0, Mean Corpuscular Hemoglobin Concent 31.6L, Red Cell Distribution Width 13.3, Platelet Count 330, Mean Platelet Volume 4.6L, Neutrophils (%) (Auto) 68.8, Lymphocytes (%) (Auto) 19.1L, Monocytes (%) (Auto) 7.7, Eosinophils (%) (Auto) 3.5H, Basophils (%) (Auto) 0.8, Sodium Level 138, Potassium Level 4.0, Chloride Level 102, Carbon Dioxide Level 32, Anion Gap 4L, Blood Urea Nitrogen 14, Creatinine 0.8, Estimat Glomerular Filtration Rate > 60, Glucose Level 95, Calcium Level 8.5 Current Medications Medications (Trade) Dose Ordered Sig/Luis Route PRN Reason Start Time Stop Time Status Last Admin Dose Admin Acetaminophen (Tylenol) 650 mg Q4H PRN ORAL T>100.5 02/06/19 12:30 03/08/19 12:24 Amlodipine Besylate (Norvasc) 5 mg DAILY ORAL 02/07/19 09:00 02/22/19 08:59 02/17/19 08:53 Chlorhexidine Gluconate (Ruby-Hex 2%) 1 applic DAILY@1999 TOPIC 02/06/19 20:00 02/26/19 19:59 02/15/19 20:04 Dextrose (Dextrose 50%) 25 ml Q30M PRN IV Hypoglycemia 02/06/19 12:30 02/21/19 10:59 Dextrose (Dextrose 50%) 50 ml Q30M PRN IV hypoglycemia 02/06/19 12:30 02/21/19 10:59 Diphenhydramine HCl (Benadryl) 25 mg Q6H PRN IVP Itching 02/14/19 08:15 03/16/19 08:14 Duloxetine HCl (Cymbalta) 30 mg DAILY ORAL 02/07/19 09:00 02/22/19 08:59 02/17/19 08:54 Fentanyl (Duragesic) 1 patch Q72H TDERMAL 02/11/19 13:30 02/17/19 13:29 02/14/19 13:38 Fentanyl (Duragesic) 1 patch Q72H TDERMAL 02/17/19 13:30 02/24/19 13:29 Hydromorphone HCl (Dilaudid) 0.5 mg Q3H PRN IVP SEVERE BREAKTHRU PAIN (7-10) 02/15/19 14:00 02/17/19 11:41 02/17/19 10:45 Levetiracetam (Keppra) 1,000 mg Q8HR ORAL 02/06/19 14:00 02/21/19 13:59 02/17/19 06:12 Miconazole Nitrate (Miconazole Nitrate) 1 applic Q12HR TOPIC 02/06/19 21:00 03/05/19 20:59 02/14/19 09:02 Miscellaneous Medication (fentaNYL Destruction) 1 ea Q72H MISC 02/14/19 13:30 03/16/19 13:29 02/14/19 13:42 Naloxone HCl (Narcan) 0.1 mg PRN IV Sedation scale 3 or 4 02/06/19 12:30 04/04/19 11:59 Ondansetron HCl (Zofran) 4 mg Q6H PRN IVP Nausea & Vomiting 02/06/19 12:28 03/08/19 12:27 Pantoprazole (Protonix) 40 mg ACBREAKFAST ORAL 02/11/19 06:30 03/13/19 06:29 02/17/19 06:12 Bill Dixon MD Feb 17, 2019 11:38
[2019-02-17 12:00] VITALS: BP 116/78
[2019-02-17] MEDS: fentaNYL Destruction MISC SCH (13:30)
--- NOTE | 2019-02-17 13:33 | Cardiac Electrophysiology PN ---
Assessment/Plan Assessment/Plan 1. HTN On amlodipine 5 daily . EF 60% 2. Severe bilateral lower extremity edema and cellulitis. On abx per Dr. Patterson. 3. Abdominal pannus. S/P Resection of pannus 02/01/19 with 2 MARQUEZ drains Complains of incisional drainage 4. COPD and ADALBERTO. 5. S/P Resp failure 6. Right heart failure. 7. Lumbar spondylosis. 8. Morbid obesity. 9. Anemia S/P PRBC DW RN Subjective Subjective No CP or SOB. On NMB. Still has drainage from both JPs and incision. On Abx and pain meds. Objective Last 24 Hour Vital Signs Date Time Temp Pulse Resp B/P (MAP) Pulse Ox O2 Delivery O2 Flow Rate FiO2 02/17/19 09:52 95 Nasal Cannula 2.0 28 02/17/19 09:00 Nasal Cannula 2.0 02/17/19 08:53 76 142/66 02/17/19 08:00 98.9 18 142/66 (91) 96 02/17/19 04:00 99.8 76 18 140/63 (88) 95 02/17/19 00:00 99.5 83 20 143/80 (101) 96 02/16/19 21:00 Nasal Cannula 2.0 02/16/19 20:18 96 Nasal Cannula 2.0 28 02/16/19 20:00 98.7 74 20 131/74 (93) 96 02/16/19 16:00 98.2 70 20 129/71 (90) 94 Intake and Output 02/16/19 02/17/19 19:00 07:00 Intake Total 700 ml Output Total 1510 ml 1300 ml Balance -810 ml -1300 ml Intake Oral 700 ml Output Urine Total 1500 ml 1300 ml Drainage Total 10 ml Laboratory Tests Test 02/17/19 05:39 White Blood Count 8.8 K/UL (4.8-10.8) Red Blood Count 3.21 M/UL (4.70-6.10) L Hemoglobin 9.3 G/DL (14.2-18.0) L Hematocrit 29.4 % (42.0-52.0) L Mean Corpuscular Volume 92 FL (80-99) Mean Corpuscular Hemoglobin 29.0 PG (27.0-31.0) Mean Corpuscular Hemoglobin Concent 31.6 G/DL (32.0-36.0) L Red Cell Distribution Width 13.3 % (11.6-14.8) Platelet Count 330 K/UL (150-450) Mean Platelet Volume 4.6 FL (6.5-10.1) L Neutrophils (%) (Auto) 68.8 % (45.0-75.0) Lymphocytes (%) (Auto) 19.1 % (20.0-45.0) L Monocytes (%) (Auto) 7.7 % (1.0-10.0) Eosinophils (%) (Auto) 3.5 % (0.0-3.0) H Basophils (%) (Auto) 0.8 % (0.0-2.0) Sodium Level 138 MMOL/L (136-145) Potassium Level 4.0 MMOL/L (3.5-5.1) Chloride Level 102 MMOL/L (98-107) Carbon Dioxide Level 32 MMOL/L (21-32) Anion Gap 4 mmol/L (5-15) L Blood Urea Nitrogen 14 mg/dL (7-18) Creatinine 0.8 MG/DL (0.55-1.30) Estimat Glomerular Filtration Rate > 60 mL/min (>60) Glucose Level 95 MG/DL (74-106) Calcium Level 8.5 MG/DL (8.5-10.1) Objective HEAD AND NECK: No JVD. LUNGS: Clear. CARDIOVASCULAR: Regular S1 and S2 with no gallop or murmur. ABDOMEN: Very swollen, erythematous, and enlarged scrotum. S/P abdominal surgery with 2 drains. [place] intact EXTREMITIES: 2+ pitting edema and cellulitis of the legs. Carlos Yee MD Feb 17, 2019 13:33
--- NOTE | 2019-02-17 13:55 | Infectious Diseases Prog Note ---
Assessment/Plan Assessment/Plan Assessment: 02/01 SP Panniculectomy VDRF (post-op)- s/p extubation 02/02 Low grade fever x1 Mild leukocytosis- likely post op- resolved -02/01 CXR: Mild interstitial congestive changes persist, stable sp cx normal resp wesley (prelim) R groin swelling and pain- 2ry from Volume overload Sandy intertrigo; improving B/l Leg cellulitis and panniculitis - in the setting of chronic venous stasis, s /p Rx Active infectious cellulitis essentially resolved. Now he has chronic venous stasis and neuropathic pain with poorly healing wounds. Alot off this is due to the severe swelling in his feet but also he is poorly compliant with wound care instructions. Afebrile No leukocytosis Recent seizure episode -had L side weakness and spasticity CVA HTN bipolar disorder w/ psychotic features tobacco abuse anxiety disorder chronic pain CHF seizure disorder COPD morbid obesity Dm2 HTN SNF resident Plan: -Continue to monitor off abx -02/08 SP IV Vancomycin #8 -02/04 SP Aztreonam #4 -01/26 SP Fluconzole #5 - 01/07/19 SP IV Dapto d# 14 - 01/06/19 S/P Levofloxacin # - 12/25 sp Bactrim #/ and add IV Ancef #3/ for cellulitis - Monitor CBC/CMP, temperatures - aspiration precautions - wound care per hospital protocol -plastic sx, Gen sx f/u Subjective Allergies: Coded Allergies: ASPIRIN (Verified Allergy, Unknown, 07/14/18) KETOROLAC (Verified Allergy, Unknown, 07/14/18) PENICILLINS (Verified Allergy, Unknown, 12/23/18) tolerated Ancef on 08/2018 Subjective afebrile no leukocytosis Objective Vital Signs Last 24 Hour Vital Signs Date Time Temp Pulse Resp B/P (MAP) Pulse Ox O2 Delivery O2 Flow Rate FiO2 02/17/19 12:00 98.7 65 18 116/78 (91) 99 02/17/19 09:52 95 Nasal Cannula 2.0 28 02/17/19 09:00 Nasal Cannula 2.0 02/17/19 08:53 76 142/66 02/17/19 08:00 98.9 18 142/66 (91) 96 02/17/19 04:00 99.8 76 18 140/63 (88) 95 02/17/19 00:00 99.5 83 20 143/80 (101) 96 02/16/19 21:00 Nasal Cannula 2.0 02/16/19 20:18 96 Nasal Cannula 2.0 28 02/16/19 20:00 98.7 74 20 131/74 (93) 96 02/16/19 16:00 98.2 70 20 129/71 (90) 94 Height (Feet): 6 Height (Inches): 0.00 Weight (Pounds): 418 Objective General Appearance: alert, moderate distress, obese Head: atraumatic Eyes: bilateral eye normal inspection ENT: normal ENT inspection, hearing grossly normal, normal voice Neck: normal inspection, full range of motion, supple, no bony tend Respiratory: normal inspection, lungs clear, normal breath sounds, no respiratory distress, no retraction, no wheezing Cardiovascular #1: regular rate, rhythm Gastrointestinal: normal inspection, normal bowel sounds, soft, no guarding, no hernia, other - Left lower abdominal area Genitourinary: other - Swollen groin edematous erythematous enlarged scrotum Musculoskeletal: normal inspection, back normal, normal range of motion Neurologic: normal inspection, alert, responsive, speech normal Psychiatric: depressed affect, anxious Skin: normal inspection, normal color, no rash Laboratory Tests Test 02/17/19 05:39 White Blood Count 8.8 K/UL (4.8-10.8) Red Blood Count 3.21 M/UL (4.70-6.10) L Hemoglobin 9.3 G/DL (14.2-18.0) L Hematocrit 29.4 % (42.0-52.0) L Mean Corpuscular Volume 92 FL (80-99) Mean Corpuscular Hemoglobin 29.0 PG (27.0-31.0) Mean Corpuscular Hemoglobin Concent 31.6 G/DL (32.0-36.0) L Red Cell Distribution Width 13.3 % (11.6-14.8) Platelet Count 330 K/UL (150-450) Mean Platelet Volume 4.6 FL (6.5-10.1) L Neutrophils (%) (Auto) 68.8 % (45.0-75.0) Lymphocytes (%) (Auto) 19.1 % (20.0-45.0) L Monocytes (%) (Auto) 7.7 % (1.0-10.0) Eosinophils (%) (Auto) 3.5 % (0.0-3.0) H Basophils (%) (Auto) 0.8 % (0.0-2.0) Sodium Level 138 MMOL/L (136-145) Potassium Level 4.0 MMOL/L (3.5-5.1) Chloride Level 102 MMOL/L (98-107) Carbon Dioxide Level 32 MMOL/L (21-32) Anion Gap 4 mmol/L (5-15) L Blood Urea Nitrogen 14 mg/dL (7-18) Creatinine 0.8 MG/DL (0.55-1.30) Estimat Glomerular Filtration Rate > 60 mL/min (>60) Glucose Level 95 MG/DL (74-106) Calcium Level 8.5 MG/DL (8.5-10.1) Current Medications Medications (Trade) Dose Ordered Sig/Luis Route PRN Reason Start Time Stop Time Status Last Admin Dose Admin Acetaminophen (Tylenol) 650 mg Q4H PRN ORAL T>100.5 02/06/19 12:30 03/08/19 12:24 Amlodipine Besylate (Norvasc) 5 mg DAILY ORAL 02/07/19 09:00 02/22/19 08:59 02/17/19 08:53 Chlorhexidine Gluconate (Ruby-Hex 2%) 1 applic DAILY@1999 TOPIC 02/06/19 20:00 02/26/19 19:59 02/15/19 20:04 Dextrose (Dextrose 50%) 25 ml Q30M PRN IV Hypoglycemia 02/06/19 12:30 02/21/19 10:59 Dextrose (Dextrose 50%) 50 ml Q30M PRN IV hypoglycemia 02/06/19 12:30 02/21/19 10:59 Diphenhydramine HCl (Benadryl) 25 mg Q6H PRN IVP Itching 02/14/19 08:15 03/16/19 08:14 Duloxetine HCl (Cymbalta) 30 mg DAILY ORAL 02/07/19 09:00 02/22/19 08:59 02/17/19 08:54 Fentanyl (Duragesic) 1 patch Q72H TDERMAL 02/17/19 13:30 02/24/19 13:29 Levetiracetam (Keppra) 1,000 mg Q8HR ORAL 02/06/19 14:00 02/21/19 13:59 02/17/19 06:12 Methadone HCl (Methadone HCl) 10 mg Q6H PRN ORAL For breakthrough pain 02/17/19 12:00 02/24/19 11:38 Miconazole Nitrate (Miconazole Nitrate) 1 applic Q12HR TOPIC 02/06/19 21:00 03/05/19 20:59 02/14/19 09:02 Miscellaneous Medication (fentaNYL Destruction) 1 ea Q72H MISC 02/14/19 13:30 03/16/19 13:29 02/14/19 13:42 Naloxone HCl (Narcan) 0.1 mg PRN IV Sedation scale 3 or 4 02/06/19 12:30 04/04/19 11:59 Ondansetron HCl (Zofran) 4 mg Q6H PRN IVP Nausea & Vomiting 02/06/19 12:28 03/08/19 12:27 Pantoprazole (Protonix) 40 mg ACBREAKFAST ORAL 02/11/19 06:30 03/13/19 06:29 02/17/19 06:12 Alexa Patterson M.D. Feb 17, 2019 13:55
[2019-02-17 16:00] VITALS: BP 122/80
--- NOTE | 2019-02-17 16:21 | Surgery Progress Note ---
Surgery Progress Note Subjective Additional Comments dressings changed right side okay and dry and clean left side with mild serosang on dressing but not completely saturated drains stable. Objective Last 24 Hour Vital Signs Date Time Temp Pulse Resp B/P (MAP) Pulse Ox O2 Delivery O2 Flow Rate FiO2 02/17/19 16:00 98.3 70 18 122/80 (94) 98 02/17/19 12:00 98.7 65 18 116/78 (91) 99 02/17/19 09:52 95 Nasal Cannula 2.0 28 02/17/19 09:00 Nasal Cannula 2.0 02/17/19 08:53 76 142/66 02/17/19 08:00 98.9 18 142/66 (91) 96 02/17/19 04:00 99.8 76 18 140/63 (88) 95 02/17/19 00:00 99.5 83 20 143/80 (101) 96 02/16/19 21:00 Nasal Cannula 2.0 02/16/19 20:18 96 Nasal Cannula 2.0 28 02/16/19 20:00 98.7 74 20 131/74 (93) 96 I&O Intake and Output 02/16/19 02/17/19 19:00 07:00 Intake Total 700 ml Output Total 1510 ml 1300 ml Balance -810 ml -1300 ml Intake Oral 700 ml Output Urine Total 1500 ml 1300 ml Drainage Total 10 ml Dressing: saturated Wound: clean Cardiovascular: RSR Respiratory: clear Abdomen: soft, present bowel sounds Extremities: edema, no cyanosis Laboratory Tests Test 02/17/19 05:39 White Blood Count 8.8 K/UL (4.8-10.8) Red Blood Count 3.21 M/UL (4.70-6.10) L Hemoglobin 9.3 G/DL (14.2-18.0) L Hematocrit 29.4 % (42.0-52.0) L Mean Corpuscular Volume 92 FL (80-99) Mean Corpuscular Hemoglobin 29.0 PG (27.0-31.0) Mean Corpuscular Hemoglobin Concent 31.6 G/DL (32.0-36.0) L Red Cell Distribution Width 13.3 % (11.6-14.8) Platelet Count 330 K/UL (150-450) Mean Platelet Volume 4.6 FL (6.5-10.1) L Neutrophils (%) (Auto) 68.8 % (45.0-75.0) Lymphocytes (%) (Auto) 19.1 % (20.0-45.0) L Monocytes (%) (Auto) 7.7 % (1.0-10.0) Eosinophils (%) (Auto) 3.5 % (0.0-3.0) H Basophils (%) (Auto) 0.8 % (0.0-2.0) Sodium Level 138 MMOL/L (136-145) Potassium Level 4.0 MMOL/L (3.5-5.1) Chloride Level 102 MMOL/L (98-107) Carbon Dioxide Level 32 MMOL/L (21-32) Anion Gap 4 mmol/L (5-15) L Blood Urea Nitrogen 14 mg/dL (7-18) Creatinine 0.8 MG/DL (0.55-1.30) Estimat Glomerular Filtration Rate > 60 mL/min (>60) Glucose Level 95 MG/DL (74-106) Calcium Level 8.5 MG/DL (8.5-10.1) Plan Problems: (1) Cellulitis of groin, left (2) Cellulitis Assessment & Plan: chronic cellulitis of pannus s/p panniculectomy now extubated and recovering pain controlled Doing well post op. Patient not to ambulate or lay flat as this would put too much tension on the incision. Ok to do PT in bed. dressings changed wound stable will monitor dressings with saturation serosant left lateral left lateral dependant edema again okay for diet -iv abx -drain care -keep lindsey in place dressing changes ambulate pt/ot d/c planning rehab -AM labs will follow with recs (3) COPD (chronic obstructive pulmonary disease) (4) Morbid obesity (5) Lumbar spondylosis (6) Right heart failure (7) ADALBERTO (obstructive sleep apnea) (8) Abdominal pannus (9) Seizures (10) Cerebrovascular accident (11) Peripheral edema (12) Abdominal wall cellulitis (13) UTI (urinary tract infection) (14) Hyponatremia (15) Uncontrolled seizures (16) Knee osteomyelits, right Gt Fernandez Feb 17, 2019 16:21
--- NOTE | 2019-02-17 16:37 | NUR ---
NURSE NOTES: Dressing was changed on the surgical site. Redness and some serosag drainage on the site noted. Notified Dr. Fernandez. He already saw the patient and aware of it.
--- NOTE | 2019-02-17 16:45 | Progress Note ---
DATE: 02/17/2019 SUBJECTIVE: This is a 53-year-old male patient who was admitted to the hospital secondary to cellulitis, but he still has some anxiety, depression, mood lability, and decline in cognition below his baseline. That is why his attending has requested daily psychiatric consultation. He still has some mood lability, confusion, and anxiety. MENTAL STATUS EXAMINATION: This is a 53-year-old male. Appearance is disheveled. Attitude, irritable and agitated. Affect, guarded and restricted. Intellect, poor. Mood, depressed and anxious. Motor activity, psychomotor agitation. Attention span is poor. Orientation x2. Speech is low volume, slurred. Thought process, disorganized and illogical. Insight and judgment is poor. DIAGNOSIS: Major depressive disorder, mild, recurrent, without psychotic features. PLAN: Plan for this patient is to treat the patient with Cymbalta 30 mg daily to reduce depression, anxiety, and mood lability. A 20 minutes of cognitive behavioral therapy to help him identify his automatic negative thoughts and convert those negative thoughts to more positive thoughts to reduce depression, anxiety, mood lability and help him have more adaptive behavioral pattern. Chart reviewed. Discussed with staff. Seen and assessed in his room. Laney Mcghee M.D. DR: SHANEKA JOB#: [id number] CC:
--- NOTE | 2019-02-17 16:46 | NUR ---
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 MED/SURG STATUS
[2019-02-17] MEDS ORDERED: PROTONIX40 MG ORAL (18:56)
[2019-02-17] MEDS ORDERED: ZOFRAN 4 MG4 MG/2 ML IV (18:57)
[2019-02-17] MEDS ORDERED: MICONAZOLE NITR30 GM TOPIC (18:58)
[2019-02-17] MEDS ORDERED: METHADONE HCL10 MG ORAL (18:59)
[2019-02-17] MEDS ORDERED: KEPPRA1000 MG ORAL (18:59)
[2019-02-17] MEDS ORDERED: CYMBALTA30 MG ORAL (19:00)
[2019-02-17] MEDS ORDERED: DURAGESIC1 E1 TOPIC (19:00)
[2019-02-17] MEDS ORDERED: AMLODIPINE BESYL5 MG ORAL (19:01)
--- NOTE | 2019-02-17 19:24 | NUR ---
NURSE NOTES: Report was given to [facility], but they said bariatric bed is not ready. He will probably have to be discharged tomorrow.
--- NOTE | 2019-02-17 19:35 | NUR ---
HAND-OFF: Report given to MICAELA Lofton.
[2019-02-17 20:00] VITALS: BP 126/69
[2019-02-17] MEDS: Dyna-Hex 2% Top Sol 2oz TOPIC SCH (20:00)
--- NOTE | 2019-02-17 20:01 | NUR ---
NURSE NOTES: RECEIVED PT FROM MICAELA JOHN. PT IS ASLEEP, ON INTERMITTEN NC 2L. NO ACUTE DISTRESS NOTED. DRESSINGS ON LEFT LEG AND ABDOMEN ARE INTACT. BILATERAL MARQUEZ DRAINS NOTED, LEFT SIDE IS LEAKING, MD AWARE. PICC LINE ON LEFT UPPER ARM IS INTACT AND PATENT. BED IS LOCKED AT THE LOWEST POSITION, BED ALARMS ACTIVE, SIDE RAILS UP X3, AND CALL LIGHT IS WITHIN REACH. WILL CONTINUE TO MONITOR.
--- NOTE | 2019-02-18 02:32 | NUR ---
HAND-OFF: Report given to MICAELA TRIPLETT.
[2019-02-18 04:00] VITALS: BP 118/73
[2019-02-18] MEDS: levETIRAcetam 500mg/5ml Liquid ORAL SCH ×2 (05:49→15:12)
--- NOTE | 2019-02-18 07:32 | NUR ---
HAND-OFF: Report given to Sharyn Love RN.
--- NOTE | 2019-02-18 07:35 | NUR ---
NURSE NOTES: Received pt in bed. States that he had an episode of seizure, but no s/s of distress, with stable vital sign. Complains pain at the surgical site. PICC line on the L UA intact and patent. Call light within reach. Bed in the lowest, locked, with alarm on. Will continue to monitor.
[2019-02-18 08:00] VITALS: BP 121/70
[2019-02-18] MEDS ORDERED: LORazepam Inj 2mg/ml 1ml IV PRN (08:45)
[2019-02-18] MEDS: Miconazole 2% Cream 30gm TOPIC SCH (09:00)
[2019-02-18] MEDS: DULoxetine 30mg cap ORAL SCH (09:40)
--- NOTE | 2019-02-18 10:46 | Infectious Diseases Prog Note ---
Assessment/Plan Assessment/Plan Assessment: 02/01 SP Panniculectomy VDRF (post-op)- s/p extubation 02/02 Low grade fever x1 Mild leukocytosis- likely post op- resolved -02/01 CXR: Mild interstitial congestive changes persist, stable sp cx normal resp wesley (prelim) R groin swelling and pain- 2ry from Volume overload Sandy intertrigo; improving B/l Leg cellulitis and panniculitis - in the setting of chronic venous stasis, s /p Rx Active infectious cellulitis essentially resolved. Now he has chronic venous stasis and neuropathic pain with poorly healing wounds. Alot off this is due to the severe swelling in his feet but also he is poorly compliant with wound care instructions. Afebrile No leukocytosis Recent seizure episode -had L side weakness and spasticity CVA HTN bipolar disorder w/ psychotic features tobacco abuse anxiety disorder chronic pain CHF seizure disorder COPD morbid obesity Dm2 HTN SNF resident Plan: -Continue to monitor off abx -02/08 SP IV Vancomycin #8 -02/04 SP Aztreonam #4 -01/26 SP Fluconzole #5 - 01/07/19 SP IV Dapto d# 14 - 01/06/19 S/P Levofloxacin # - 12/25 sp Bactrim #/ and add IV Ancef #3/ for cellulitis - Monitor CBC/CMP, temperatures - aspiration precautions - wound care per hospital protocol -plastic sx, Gen sx f/u Subjective Allergies: Coded Allergies: ASPIRIN (Verified Allergy, Unknown, 07/14/18) KETOROLAC (Verified Allergy, Unknown, 07/14/18) PENICILLINS (Verified Allergy, Unknown, 12/23/18) tolerated Ancef on 08/2018 Subjective afebrile no leukocytosis Objective Vital Signs Last 24 Hour Vital Signs Date Time Temp Pulse Resp B/P (MAP) Pulse Ox O2 Delivery O2 Flow Rate FiO2 02/18/19 09:40 71 121/70 02/18/19 09:00 Nasal Cannula 2.0 02/18/19 08:05 96 Nasal Cannula 2.0 28 02/18/19 08:00 98.6 71 18 121/70 (87) 94 02/18/19 04:00 99.0 76 17 118/73 (88) 95 02/17/19 21:00 Room Air 02/17/19 20:19 95 Nasal Cannula 2.0 28 02/17/19 20:00 98.9 75 17 126/69 (88) 95 02/17/19 16:00 98.3 70 18 122/80 (94) 98 02/17/19 12:00 98.7 65 18 116/78 (91) 99 Height (Feet): 6 Height (Inches): 0.00 Weight (Pounds): 418 Objective General Appearance: alert, moderate distress, obese Head: atraumatic Eyes: bilateral eye normal inspection ENT: normal ENT inspection, hearing grossly normal, normal voice Neck: normal inspection, full range of motion, supple, no bony tend Respiratory: normal inspection, lungs clear, normal breath sounds, no respiratory distress, no retraction, no wheezing Cardiovascular #1: regular rate, rhythm Gastrointestinal: normal inspection, normal bowel sounds, soft, no guarding, no hernia, other - Left lower abdominal area Genitourinary: other - Swollen groin edematous erythematous enlarged scrotum Musculoskeletal: normal inspection, back normal, normal range of motion Neurologic: normal inspection, alert, responsive, speech normal Psychiatric: depressed affect, anxious Skin: normal inspection, normal color, no rash Current Medications Medications (Trade) Dose Ordered Sig/Luis Route PRN Reason Start Time Stop Time Status Last Admin Dose Admin Acetaminophen (Tylenol) 650 mg Q4H PRN ORAL T>100.5 02/06/19 12:30 03/08/19 12:24 Amlodipine Besylate (Norvasc) 5 mg DAILY ORAL 02/07/19 09:00 02/22/19 08:59 02/18/19 09:40 Chlorhexidine Gluconate (Ruby-Hex 2%) 1 applic DAILY@1999 TOPIC 02/06/19 20:00 02/26/19 19:59 02/15/19 20:04 Dextrose (Dextrose 50%) 25 ml Q30M PRN IV Hypoglycemia 02/06/19 12:30 02/21/19 10:59 Dextrose (Dextrose 50%) 50 ml Q30M PRN IV hypoglycemia 02/06/19 12:30 02/21/19 10:59 Diphenhydramine HCl (Benadryl) 25 mg Q6H PRN IVP Itching 02/14/19 08:15 03/16/19 08:14 Duloxetine HCl (Cymbalta) 30 mg DAILY ORAL 02/07/19 09:00 02/22/19 08:59 02/18/19 09:40 Fentanyl (Duragesic) 1 patch Q72H TDERMAL 02/17/19 13:30 02/24/19 13:29 02/17/19 14:20 Levetiracetam (Keppra) 1,000 mg Q8HR ORAL 02/06/19 14:00 02/21/19 13:59 02/18/19 05:49 Lorazepam (Ativan 2mg/ml 1ml) 2 mg Q2H PRN IV For Anxiety 02/18/19 08:45 02/25/19 08:44 Methadone HCl (Methadone HCl) 10 mg Q6H PRN ORAL For breakthrough pain 02/17/19 12:00 02/24/19 11:38 02/18/19 09:41 Miconazole Nitrate (Miconazole Nitrate) 1 applic Q12HR TOPIC 02/06/19 21:00 03/05/19 20:59 02/14/19 09:02 Miscellaneous Medication (fentaNYL Destruction) 1 ea Q72H MISC 02/14/19 13:30 03/16/19 13:29 02/17/19 13:30 Naloxone HCl (Narcan) 0.1 mg PRN IV Sedation scale 3 or 4 02/06/19 12:30 04/04/19 11:59 Ondansetron HCl (Zofran) 4 mg Q6H PRN IVP Nausea & Vomiting 02/06/19 12:28 03/08/19 12:27 Pantoprazole (Protonix) 40 mg ACBREAKFAST ORAL 02/11/19 06:30 03/13/19 06:29 02/18/19 05:49 Alexa Patterson M.D. Feb 18, 2019 10:46
--- NOTE | 2019-02-18 11:45 | Pulmonology Progress Note ---
Assessment/Plan Problems: (1) Abdominal pannus (2) COPD (chronic obstructive pulmonary disease) (3) ADALBERTO (obstructive sleep apnea) (4) Right heart failure (5) Lumbar spondylosis (6) Morbid obesity Assessment/Plan no fever or leukocytosis decrease Dilaudid to 2 mg needs to be on low calorie diet, increase Fentanyl patch to 50 labs in am restart methadone prn symptomatic treatment decrease dilaudid to -.5 mg q 3 hours. dvt prophylaxis. doing better Subjective ROS Limited/Unobtainable: No HEENT: Repors: no symptoms Respiratory: Reports: no symptoms Allergies: Coded Allergies: ASPIRIN (Verified Allergy, Unknown, 07/14/18) KETOROLAC (Verified Allergy, Unknown, 07/14/18) PENICILLINS (Verified Allergy, Unknown, 12/23/18) tolerated Ancef on 08/2018 Objective Last 24 Hour Vital Signs Date Time Temp Pulse Resp B/P (MAP) Pulse Ox O2 Delivery O2 Flow Rate FiO2 02/18/19 09:40 71 121/70 02/18/19 09:00 Nasal Cannula 2.0 02/18/19 08:05 96 Nasal Cannula 2.0 28 02/18/19 08:00 98.6 71 18 121/70 (87) 94 02/18/19 04:00 99.0 76 17 118/73 (88) 95 02/17/19 21:00 Room Air 02/17/19 20:19 95 Nasal Cannula 2.0 28 02/17/19 20:00 98.9 75 17 126/69 (88) 95 02/17/19 16:00 98.3 70 18 122/80 (94) 98 02/17/19 12:00 98.7 65 18 116/78 (91) 99 Intake and Output 02/17/19 02/18/19 19:00 07:00 Intake Total 360 ml 480 ml Output Total 1300 ml 1390 ml Balance -940 ml -910 ml Intake Oral 360 ml 480 ml Output Urine Total 1300 ml 1350 ml Drainage Total 40 ml # Bowel Movements 1 Objective General Appearance: WD/WN HEENT: normocephalic Respiratory/Chest: chest wall non-tender,decreased breath sounds Cardiovascular: normal peripheral pulses, normal rate Abdomen: normal bowel sounds, soft, massive fat amount Genitourinary: swollen testicles, Extremities: extreme edema Current Medications Medications (Trade) Dose Ordered Sig/Luis Route PRN Reason Start Time Stop Time Status Last Admin Dose Admin Acetaminophen (Tylenol) 650 mg Q4H PRN ORAL T>100.5 02/06/19 12:30 03/08/19 12:24 Amlodipine Besylate (Norvasc) 5 mg DAILY ORAL 02/07/19 09:00 02/22/19 08:59 02/18/19 09:40 Chlorhexidine Gluconate (Ruby-Hex 2%) 1 applic DAILY@1999 TOPIC 02/06/19 20:00 02/26/19 19:59 02/15/19 20:04 Dextrose (Dextrose 50%) 25 ml Q30M PRN IV Hypoglycemia 02/06/19 12:30 02/21/19 10:59 Dextrose (Dextrose 50%) 50 ml Q30M PRN IV hypoglycemia 02/06/19 12:30 02/21/19 10:59 Diphenhydramine HCl (Benadryl) 25 mg Q6H PRN IVP Itching 02/14/19 08:15 03/16/19 08:14 Duloxetine HCl (Cymbalta) 30 mg DAILY ORAL 02/07/19 09:00 02/22/19 08:59 02/18/19 09:40 Fentanyl (Duragesic) 1 patch Q72H TDERMAL 02/17/19 13:30 02/24/19 13:29 02/17/19 14:20 Hydromorphone HCl (Dilaudid) 0.5 mg Q3H PRN IVP SEVERE BREAKTHROUGH PAIN 02/18/19 11:45 02/25/19 11:44 Levetiracetam (Keppra) 1,000 mg Q8HR ORAL 02/06/19 14:00 02/21/19 13:59 02/18/19 05:49 Lorazepam (Ativan 2mg/ml 1ml) 2 mg Q2H PRN IV For Anxiety 02/18/19 08:45 02/25/19 08:44 Methadone HCl (Methadone HCl) 10 mg Q6H PRN ORAL Moderate Breakthrough Pain 02/18/19 11:45 02/24/19 11:38 Miconazole Nitrate (Miconazole Nitrate) 1 applic Q12HR TOPIC 02/06/19 21:00 03/05/19 20:59 02/14/19 09:02 Miscellaneous Medication (fentaNYL Destruction) 1 ea Q72H MISC 02/14/19 13:30 03/16/19 13:29 02/17/19 13:30 Naloxone HCl (Narcan) 0.1 mg PRN IV Sedation scale 3 or 4 02/06/19 12:30 04/04/19 11:59 Ondansetron HCl (Zofran) 4 mg Q6H PRN IVP Nausea & Vomiting 02/06/19 12:28 03/08/19 12:27 Pantoprazole (Protonix) 40 mg ACBREAKFAST ORAL 02/11/19 06:30 03/13/19 06:29 02/18/19 05:49 Bill Dixon MD Feb 18, 2019 11:45
[2019-02-18] MEDS: Hydromorphone 0.5mg/0.5ml inj IVP PRN ×3 (11:47→18:11)
[2019-02-18 12:00] VITALS: BP 125/74
--- NOTE | 2019-02-18 12:51 | Surgery Progress Note ---
Surgery Progress Note Subjective Additional Comments doing well comfortable no complaints drains with less output dressings not as saturated Objective Last 24 Hour Vital Signs Date Time Temp Pulse Resp B/P (MAP) Pulse Ox O2 Delivery O2 Flow Rate FiO2 02/18/19 09:40 71 121/70 02/18/19 09:00 Nasal Cannula 2.0 02/18/19 08:05 96 Nasal Cannula 2.0 28 02/18/19 08:00 98.6 71 18 121/70 (87) 94 02/18/19 04:00 99.0 76 17 118/73 (88) 95 02/17/19 21:00 Room Air 02/17/19 20:19 95 Nasal Cannula 2.0 28 02/17/19 20:00 98.9 75 17 126/69 (88) 95 02/17/19 16:00 98.3 70 18 122/80 (94) 98 I&O Intake and Output 02/17/19 02/18/19 19:00 07:00 Intake Total 360 ml 480 ml Output Total 1300 ml 1390 ml Balance -940 ml -910 ml Intake Oral 360 ml 480 ml Output Urine Total 1300 ml 1350 ml Drainage Total 40 ml # Bowel Movements 1 Dressing: saturated Wound: clean Drains: lisbet Cardiovascular: RSR Respiratory: clear Abdomen: soft, present bowel sounds Extremities: edema, no cyanosis Plan Problems: (1) Cellulitis of groin, left (2) Cellulitis Assessment & Plan: chronic cellulitis of pannus s/p panniculectomy now extubated and recovering pain controlled Doing well post op. Patient not to ambulate or lay flat as this would put too much tension on the incision. Ok to do PT in bed. dressings changed wound stable will monitor dressings with saturation serosant left lateral left lateral dependant edema again okay for diet -iv abx -drain care -keep lindsey in place dressing changes ambulate pt/ot d/c planning rehab -AM labs will follow with recs (3) COPD (chronic obstructive pulmonary disease) (4) Morbid obesity (5) Lumbar spondylosis (6) Right heart failure (7) ADALBERTO (obstructive sleep apnea) (8) Abdominal pannus (9) Seizures (10) Cerebrovascular accident (11) Peripheral edema (12) Abdominal wall cellulitis (13) UTI (urinary tract infection) (14) Hyponatremia (15) Uncontrolled seizures (16) Knee osteomyelits, right Gt Fernandez Feb 18, 2019 12:51
--- NOTE | 2019-02-18 14:56 | General Progress Note ---
Assessment/Plan Status: stable, progressing Assessment/Plan: Problem List: (1) Seizures ICD Codes: R56.9 - Unspecified convulsions SNOMED: 56337020 (2) Cerebrovascular accident ICD Codes: I63.9 - Cerebral infarction, unspecified SNOMED: 695600299 (3) Peripheral edema ICD Codes: R60.9 - Edema, unspecified SNOMED: 101475460 (4) Cellulitis of groin, left ICD Codes: L03.314 - Cellulitis of groin SNOMED: 99742495 (5) Cellulitis ICD Codes: L03.90 - Cellulitis, unspecified SNOMED: 472583897 (6) COPD (chronic obstructive pulmonary disease) ICD Codes: J44.9 - Chronic obstructive pulmonary disease, unspecified SNOMED: 30778855 (7) Morbid obesity ICD Codes: E66.01 - Morbid (severe) obesity due to excess calories SNOMED: 798565237 (8) Abdominal pannus ICD Codes: E65 - Localized adiposity SNOMED: 1562879604031 (9) Abdominal wall cellulitis ICD Codes: L03.311 - Cellulitis of abdominal wall SNOMED: 66040739 (10) UTI (urinary tract infection) ICD Codes: N39.0 - Urinary tract infection, site not specified SNOMED: 04798939 Status: stable, progressing --> dc to snf when all others have cleared Subjective Constitutional: Denies: no symptoms, chills, diaphoresis, fever, malaise, weakness, other HEENT: Denies: no symptoms, eye pain, blurred vision, tearing, double vision, ear pain, ear discharge, nose pain, nose congestion, throat pain, throat swelling, mouth pain, mouth swelling, other Cardiovascular: Denies: no symptoms, chest pain, edema, irregular heart rate, lightheadedness, palpitations, syncope, other Gastrointestinal/Abdominal: Denies: no symptoms, abdomen distended, abdominal pain, black stools, tarry stools, blood in stool, constipated, diarrhea, difficulty swallowing, nausea, poor appetite, poor fluid intake, rectal bleeding , vomiting, other Genitourinary: Denies: no symptoms, burning, discharge, frequency, flank pain, hematuria, incontinence, pain, urgency, other Neurologic/Psychiatric: Denies: no symptoms, anxiety, depressed, emotional problems, headache, numbness, paresthesia, pre-existing deficit, seizure, tingling, tremors, weakness, other Endocrine: Denies: no symptoms, excessive sweating, flushing, intolerance to cold, intolerance to heat, increased hunger, increased thirst, increased urine, unexplained weight gain, unexplained weight loss, other Hematologic/Lymphatic: Denies: no symptoms, anemia, easy bleeding, easy bruising, other Allergies: Coded Allergies: ASPIRIN (Verified Allergy, Unknown, 07/14/18) KETOROLAC (Verified Allergy, Unknown, 07/14/18) PENICILLINS (Verified Allergy, Unknown, 12/23/18) tolerated Ancef on 08/2018 Subjective 02/18: on fentanyl patch higher dose and methadone as well now Objective Last 24 Hour Vital Signs Date Time Temp Pulse Resp B/P (MAP) Pulse Ox O2 Delivery O2 Flow Rate FiO2 02/18/19 12:17 98.6 02/18/19 12:00 98.4 76 20 125/74 (91) 94 02/18/19 09:40 71 121/70 02/18/19 09:00 Nasal Cannula 2.0 02/18/19 08:05 96 Nasal Cannula 2.0 28 02/18/19 08:00 98.6 71 18 121/70 (87) 94 02/18/19 04:00 99.0 76 17 118/73 (88) 95 02/17/19 21:00 Room Air 02/17/19 20:19 95 Nasal Cannula 2.0 28 02/17/19 20:00 98.9 75 17 126/69 (88) 95 02/17/19 16:00 98.3 70 18 122/80 (94) 98 Intake and Output 02/17/19 02/18/19 19:00 07:00 Intake Total 360 ml 480 ml Output Total 1300 ml 1390 ml Balance -940 ml -910 ml Intake Oral 360 ml 480 ml Output Urine Total 1300 ml 1350 ml Drainage Total 40 ml # Bowel Movements 1 Height (Feet): 6 Height (Inches): 0.00 Weight (Pounds): 418 Objective Physical Exam General Appearance: A+O x3, NAD HEENT: normocephalic, atraumatic Neck: non-tender, normal alignment Respiratory/Chest: chest wall non-tender, lungs clear Cardiovascular/Chest: normal peripheral pulses, normal rate Abdomen: normal bowel sounds, non tender Extremities: normal range of motion Jay Wlison MD Feb 18, 2019 14:56
[2019-02-18 16:00] VITALS: BP 126/72
--- NOTE | 2019-02-18 16:15 | Progress Note ---
DATE: 02/18/2019 SUBJECTIVE: This is a 53-year-old male patient with cellulitis. The patient has confusion, disorganized thought process, decline in cognition below his baseline, and increased depression, anxiety, and mood lability due to his cellulitis. MENTAL STATUS EXAMINATION: This is a 53-year-old male. Appearance is disheveled. Attitude, irritable and agitated. Affect, guarded and restricted. Intellect, poor. Mood, depressed and anxious. Motor activity, psychomotor agitation. Attention span is poor. Orientation x2. Speech is low volume, slurred. Thought process, disorganized and illogical. Insight and judgment is poor. DIAGNOSIS: Major depressive disorder, mild, recurrent, without psychotic features. PLAN: Treat with a medication regimen consisting of Cymbalta 30 mg a day. A 20 minutes of cognitive behavioral therapy provided to help him identify his automatic negative thoughts and help convert those negative thoughts to more positive thoughts to reduce depression, anxiety, and mood lability. Chart reviewed. Discussed with staff. Seen and assessed in his room. Laney Mcghee M.D. DR: SHANEKA JOB#: [id number] CC:
[2019-02-18] MEDS ORDERED: DILAUDID 00.5 MG/0.1 IJ (17:17)
--- NOTE | 2019-02-18 20:25 | NUR ---
NURSE NOTES: Patient was discharged to [facility] by ambulance. Report was given to MICAELA Beyer at the rehab center. Discharge instructions were given. PICC line and FC were removed. No s/s of infections on the removal site. Vitals are stable. All belongs were accounted for including his wallets from [employer].
--- NOTE | 2019-02-22 08:50 | Discharge Summary ---
Discharge Summary Discharge Summary _ DATE OF ADMISSION: 01/22/2019 DATE OF DISCHARGE: 02/18/2019 DISCHARGED BY: Dr Nicole REASON FOR ADMISSION: 53 years old male with history of morbid obesity, CVA, CHF, hypertension, COPD, seizure disorder, sleep apnea, bipolar disorder with psychotic features, anxiety disorder, tobacco abuse, recently was admitted for lower extremity leg wounds and cellulitis. He presented with complaint of the left groin pain and swelling. No nausea , vomiting, diarrhea or chills. Physical exam was consistent with acute infection , involving the groin : cellulitis versus fungal infection. There was also evidence of edema. Patient subsequently admitted with abdominal wall cellulitis and cellulitis of left groin. CONSULTANTS: merchandise deliverer Dr. Morel plastic surgeon Dr Roberts urologist Dr. Castorena pulmonary/critical care Dr. Dixon ID specialist Dr. Patterson surgery Dr. Fernandez psychiatrist Dr. Mcghee [facility] COURSE: Patient admitted to medical surgical floor. Patient started on IV antibiotic as per ID specialist recommendation. Leak Inspector seen and evaluated patient for management of hypertension and preoperative clearance for planned panniculectomy. Blood pressure was managed with calcium channel joe. Diuresis with IV Lasix provided with close monitoring of volumes and cardiorenal parameters. Electrolytes corrected as needed. Echocardiogram revealed left ventricular ejection fraction 45 to 50% with mild left ventricular hypertrophy. Right ventricular systolic pressure of 10. Blood pressure was controlled with current medication. Per merchandise deliverer, mo further evaluation was required. Patient remained at moderate risk for surgery. Urologist seen the patient for penoscrotal edema. Per urologist, penoscrotal edema was a manifestation of fluid overload or congestive heart failure rather than any true urological issue or problem. Erythematous cellulitis was a skin issue and did not represent underlying genitourinary pathology. Urologist recommended scrotal elevation, diuresis, and follow-up with ID specialist recommendation. Pain management was addressed. Supportive care provided. Patient undergone subsequently on 02/01 abdominal panniculectomy. Patient was intubated for surgery and left intubated until the next day due to high risk for respiratory problems, including COPD , obstructive sleep apnea along with CHF and morbid obesity. Ventilator support provided. Pulmonary toilet provided. Patient was able to be extubated on 02/02. Wound care provided. Patient had two MARQUEZ drains after surgery. Output was closely monitored. General surgeon followed for wound care and close monitoring. Supplemental oxygen provided as needed and titrated to keep pulse oximetry above 92%. Pulmonary toilet provided as needed. Pain management was addressed. Benadryl provided as needed for pruritus control. BiPAP provided at night. Patient was encouraged compliance. Antiplatelet therapy with Plavix continued, since patient allergic to aspirin. DVT and GI prophylaxis provided. Patient was counseled on abstinence from smoking. Patient declined nicotine patch. Bowel regimen instituted. Patient completed treatment for cellulitis . Blood culture urine culture were negative. Sputum culture was negative. Miconazole cream for intertrigo was continued as recommended by ID specialist. Hemoglobin and hematocrit were closely monitored with goal to keep hemoglobin above 7. Scrotum was elevated. Penoscrotal edema improved after diuresis. Seizure precaution maintained. Keppra continued. No evidence of seizure activity while in the hospital. Plastic surgeon follow. After 2 weeks of panniculectomy, patient was doing well , but that in the last 36 hours began to have some drainage from the left lower quadrant incision. No fever or chills, no leukocytosis, no increase in pain Per plastic surgeon, it did not look clinically like infection. Likely seroma that was not completely evaluated by the drain. Wound care regimen changed as per plastic surgeon recommendation. Wound was slowly healing. Drainage stopped. Patient was working with physical therapy. Psychiatrist followed. Psychiatrist diagnosed patient with major depressive disorder, mild, recurrent , without psychotic features. Psychiatric medication regimen was optimized as per psychiatrist. Cognitive behavioral therapy provided. Patient clinically stabilized and was ready for transfer to care home facility for continuation of care FINAL DIAGNOSES: Abdominal pannus Status post 02/01 panniculectomy Sandy intertrigo Bilateral leg cellulitis and panniculitis in the setting of chronic venous stasis, s/p treatment Hypertension COPD Obstructive sleep apnea Right heart failure Massive scrotal edema, secondary to anasarca Morbid obesity Anemia Lumbar spondylosis History of CVA with left-sided weakness Seizure disorder Major depressive disorder, mild, recurrent, without psychotic features DISCHARGE MEDICATIONS: See Medication Reconciliation list. DISCHARGE INSTRUCTIONS: Patient was discharged to the care home facility. Follow up with medical doctor at the facility. Kiera Vivar NP Feb 22, 2019 08:50
== END 2019-02-18 20:15 | DRG 364 ==
LOC: EDBD 07:14 → EDBEDREQ 07:47 → EMR 07:52 → 4E 08:47 → EDBEDREQ 09:03 → 4E 10:16 → ICU 02-01 13:30 → 2E 02-03 11:55 → 4E 02-06 11:43
PROC: 02HV33Z Insertion of Infusion Device into Superior Vena Cava, Percutaneous Approach (ICD-10-PCS; 2019-01-27)
PROC: B518ZZA Fluoroscopy of Superior Vena Cava, Guidance (ICD-10-PCS; 2019-01-27)
PROC: 0WBF0ZZ Excision of Abdominal Wall, Open Approach (ICD-10-PCS; principal; 2019-02-01 07:30)
PROC: 5A1945Z Respiratory Ventilation, 24-96 Consecutive Hours (ICD-10-PCS; principal; 2019-02-01 07:30)
DX: L03.311 Cellulitis of abdominal wall (principal); J96.90 Respiratory failure, unspecified, unspecified whether with hypoxia or hypercapnia; Z99.11 Dependence on respirator [ventilator] status; F33.3 Major depressive disorder, recurrent, severe with psychotic symptoms; E11.40 Type 2 diabetes mellitus with diabetic neuropathy, unspecified; E66.01 Morbid (severe) obesity due to excess calories; M86.9 Osteomyelitis, unspecified; I50.810 Right heart failure, unspecified; I11.0 Hypertensive heart disease with heart failure; L03.116 Cellulitis of left lower limb; L03.314 Cellulitis of groin; L03.115 Cellulitis of right lower limb; I87.8 Other specified disorders of veins; M79.3 Panniculitis, unspecified; B37.2 Candidiasis of skin and nail; J44.1 Chronic obstructive pulmonary disease with (acute) exacerbation; G40.909 Epilepsy, unspecified, not intractable, without status epilepticus; Z86.73 Personal history of transient ischemic attack (TIA), and cerebral infarction without residual deficits; F31.60 Bipolar disorder, current episode mixed, unspecified; Z72.0 Tobacco use; F41.9 Anxiety disorder, unspecified; G47.33 Obstructive sleep apnea (adult) (pediatric); M47.816 Spondylosis without myelopathy or radiculopathy, lumbar region; F33.9 Major depressive disorder, recurrent, unspecified; E87.1 Hypo-osmolality and hyponatremia; D64.9 Anemia, unspecified; D72.829 Elevated white blood cell count, unspecified; N39.0 Urinary tract infection, site not specified; N50.89 Other specified disorders of the male genital organs; Z68.43 Body mass index [BMI] 50.0-59.9, adult
CPT/HCPCS: 36415; 36569; 36600; 71045; 74018; 76937; 80048; 80053; 80202; 80299; 81001; 81003; 82248; 82803; 83735; 84100; 84478; 85007; 85025; 85610; 85651; 85730; 86140; 86850; 86900; 86901; 86920; 87040; 87070; 87081; 87205; 93306; 94002; 94003; 94150; 94640; 94664; 96365; 96366; 96375; 96376; 99285; J2250; J2405; J2710; J7620

== ENCOUNTER 2019-02-22 21:24 | Emergency (ER) | payer MEDICARE, MEDICAID ==
[~2019-02-22] VITALS: Ht 182.9 cm; Wt 220.0 kg
[~2019-02-22 21:24] MED LIST changes: +DILAUDID 00.5 MG/0.1 IJ; +DURAGESIC1 E1 TOPIC; +KEPPRA1000 MG ORAL; +METHADONE HCL10 MG ORAL; +MICONAZOLE NITR30 GM TOPIC; +PROTONIX40 MG ORAL; +ZOFRAN 4 MG4 MG/2 ML IV
--- NOTE | 2019-02-22 21:35 | NUR ---
ED Nurse Note: Recieved pt javier from snf, awake, alert and oriented x 4 with c/o g-tube came out, when assessed it is actually its his Williams-yovana x 2 that came out, pt had recent abdominal surgery and has had them in place, no bleeding noted from sites, pt has surgical scar across lower abdomen with lawrence, intact and appears to be healing well, pt does c/o having severe pain at 9/10, sharp and constant, pt denies any other complaints or discomforts.
--- NOTE | 2019-02-22 21:50 | Emergency Room Report ---
History of Present Illness General Chief Complaint: Malfunctioning Gastric Tube Source: Patient Present Illness HPI This is a 53-year-old male with a history of morbid obesity and had a recent surgery for infected panniculitis. He had 2 MARQUEZ drain placed. It was dislodged today. Per patient there was only about 15 cc of output per shift. He complained of pain into that area. No nausea no vomiting. No fever chills. Denies any other complaint. Pain is 8 out of 10. Allergies: Coded Allergies: ASPIRIN (Verified Allergy, Unknown, 07/14/18) KETOROLAC (Verified Allergy, Unknown, 07/14/18) PENICILLINS (Verified Allergy, Unknown, 12/23/18) tolerated Ancef on 08/2018 Patient History Past Medical History: see triage record, old chart reviewed Past Surgical History: other Pertinent Family History: none Social History: Denies: smoking Immunizations: other Reviewed Nursing Documentation: PMH: Agreed; PSxH: Agreed Nursing Documentation-PMH Past Medical History: No History, Except For Hx Hypertension: Yes Hx COPD: Yes Hx Cancer: No Hx Gastrointestinal Problems: Yes Hx Neurological Problems: Yes Hx Seizures: Yes - EPILEPSY Review of Systems Eye: Denies: eye pain, blurred vision ENT: Denies: ear pain, nose congestion, throat swelling Respiratory: Denies: cough, shortness of breath Cardiovascular: Denies: chest pain, palpitations Gastrointestinal: Reports: abdominal pain; Denies: diarrhea, nausea, vomiting Musculoskeletal: Denies: back pain, joint pain Skin: Denies: rash Neurological: Denies: headache, numbness Endocrine: Denies: increased thirst, increased urine Hematologic/Lymphatic: Denies: easy bruising All Other Systems: negative except mentioned in HPI Physical Exam Vital Signs Date Time Temp Pulse Resp B/P (MAP) Pulse Ox O2 Delivery O2 Flow Rate FiO2 02/22/19 21:18 97.5 84 16 123/75 (91) 99 Nasal Cannula 2.0 vitals normal Sp02 EP Interpretation: reviewed, normal General Appearance: well appearing, no apparent distress, alert, obese Head: normocephalic, atraumatic Eyes: bilateral eye PERRL, bilateral eye EOMI ENT: hearing grossly normal, normal pharynx Neck: full range of motion, supple, no meningismus Respiratory: chest non-tender, lungs clear, normal breath sounds Cardiovascular #1: regular rate, rhythm, no murmur Gastrointestinal: normal bowel sounds, non tender, no mass, no organomegaly, no bruit, non-distended, other - Abdominal wound with minimal erythema along the staple site. No drainage. No warmth. Musculoskeletal: back normal, gait/station normal, normal range of motion Psychiatric: mood/affect normal Medical Decision Making Diagnostic Impression: Primary Impression: Encounter for postoperative wound check Additional Impression: Morbid obesity ER Course Patient here because his MARQUEZ drain dislodged. He was only getting about 15 cc per shift of output. No evidence of any abscess. I discussed this with Dr. Fernandez who said that it is acceptable. He was going to pull the MARQUEZ drain anyway. He looked at the pictures of his abdominal wound and said it looks fine to him. Will discharge home. No evidence of any infection or abscess. No evidence of necrotizing fasciitis. Labs unremarkable. Will discharge home. Last Vital Signs Date Time Temp Pulse Resp B/P (MAP) Pulse Ox O2 Delivery O2 Flow Rate FiO2 02/22/19 21:18 97.5 84 16 123/75 (91) 99 Nasal Cannula 2.0 Status: improved Disposition: XFER SNF Condition: Stable Additional Instructions: Follow up with your doctor in 7 days. Return if symptoms worsen. Nathaniel Lion MD Feb 22, 2019 21:50
[2019-02-22] MEDS ORDERED: HYDROmorphone 1mg/ml Carpuject IVP ONE ×2 (22:00→23:15)
[2019-02-22 22:23] LABS: BASOPHILS % (AUTO) 0.8 % (0.0-2.0); EOSINOPHILS % (AUTO) 6.6 % (0.0-3.0); HEMOGLOBIN 9.2 G/DL (14.2-18.0); LYMPHOCYTES % (AUTO) 23.4 % (20.0-45.0); MEAN CORPUSCULAR VOLUME 87 FL (80-99); MONOCYTES % (AUTO) 7.1 % (1.0-10.0); PLATELET COUNT 357 K/UL (150-450); RED BLOOD COUNT 3.22 M/UL (4.70-6.10); RED CELL DISTRIBUTION WIDTH 12.7 % (11.6-14.8); WHITE BLOOD COUNT 7.4 K/UL (4.8-10.8)
[2019-02-22 22:34] LABS: ANION GAP 3 mmol/L (5-15); BLOOD UREA NITROGEN 13 mg/dL (7-18); CALCIUM 8.7 MG/DL (8.5-10.1); CARBON DIOXIDE 32 MMOL/L (21-32); CHLORIDE 102 MMOL/L (98-107); CREATININE 0.8 MG/DL (0.55-1.30); POTASSIUM 3.9 MMOL/L (3.5-5.1); SODIUM 137 MMOL/L (136-145)
[2019-02-22 22:37] LABS: INR 0.9 (0.9-1.1)
[2019-02-22 22:45] VITALS: BP 103/64
--- NOTE | 2019-02-22 23:15 | NUR ---
ED Nurse Note: Pt surgeon has spoken with md and pt does not need Williams-Yang replaced, wound on abdomen was cleaned and dry dressing applied by er-tech, pt tolerated well, medicated for pain, eds slightly effective with pain level decreasing to 7/10, iv site intact and patent, placed call to snf at [phone], report given to ROSY Gonzalez and informed of pt returning and d/c instructions to continue dressing changes as ordered, waiting for ambulance transportation, pt continues to rest quietly, v/s stable, given water, tolerated well, nad noted.
[2019-02-23] VITALS: BP 101/58
--- NOTE | 2019-02-23 | NUR ---
ED Nurse Note: [facility] has arrived for pt transport, rig#[id number], verbal report and all forms and d/c instructions given to wood pile driver operator Luis, pt is leaving awake, alert and oriented x 4, given pain meds before leaving, iv line removed without complications or bleeding, no sob, no cp, armband removed also, nadnoted during pt transport back to [facility].
== END 2019-02-23 ==
LOC: EDBD 21:24 → EMR 23:45
DX: T81.89XA Other complications of procedures, not elsewhere classified, initial encounter (principal); E66.01 Morbid (severe) obesity due to excess calories; Z88.6 Allergy status to analgesic agent; Z88.0 Allergy status to penicillin; I10 Essential (primary) hypertension; J44.9 Chronic obstructive pulmonary disease, unspecified; G40.909 Epilepsy, unspecified, not intractable, without status epilepticus; R10.9 Unspecified abdominal pain; X58.XXXA Exposure to other specified factors, initial encounter; Y92.9 Unspecified place or not applicable
CPT/HCPCS: 36415; 80048; 85025; 85610; 85730; 96374; 96375; 96376; 99284; J1170; J2405

== ENCOUNTER 2019-03-03 16:03 | Inpatient (IN) | payer MEDICARE, MEDICAID ==
[~2019-03-03] VITALS: Ht 182.9 cm; Wt 204.1 kg
[2019-03-03 16:30] VITALS: BP 130/90
[2019-03-03] MEDS ORDERED: Vancomycin 1.5 GM in NS 275 ML IVPB ONE (16:45)
--- NOTE | 2019-03-03 16:51 | Emergency Room Report ---
History of Present Illness General Chief Complaint: General Complaint Source: Patient, Medical Record, EMS Present Illness HPI Patient has a history of morbid obesity. Patient is status post panniculitis and had surgery to remove a large part of the pannus. Patient currently has lawrence in place. Patient states that the area has been draining he feels significant pain in the area with erythema subjective fevers and chills. Denies any nausea vomiting diarrhea chills. Symptoms noted to be severe. No other modifying factors. No other associated signs and symptoms. No other complaints were noted. Patient states that it is foul-smelling. Allergies: Coded Allergies: ASPIRIN (Verified Allergy, Unknown, 07/14/18) KETOROLAC (Verified Allergy, Unknown, 07/14/18) PENICILLINS (Verified Allergy, Unknown, 12/23/18) tolerated Ancef on 08/2018 Patient History Past Medical History: HTN, COPD, other - Morbid obesity Past Surgical History: other - panniculectmy Social History: Denies: smoking, alcohol use, drug use Social History Narrative At [facility] Reviewed Nursing Documentation: PMH: Agreed; PSxH: Agreed Nursing Documentation-PMH Hx Hypertension: Yes Hx COPD: Yes Hx Cancer: No Hx Gastrointestinal Problems: Yes - s/p abd surgery ,open wound Hx Neurological Problems: Yes Hx Seizures: Yes - EPILEPSY Review of Systems All Other Systems: negative except mentioned in HPI Physical Exam Vital Signs Date Time Temp Pulse Resp B/P (MAP) Pulse Ox O2 Delivery O2 Flow Rate FiO2 03/03/19 16:05 98.1 80 20 130/90 (103) 95 Room Air Sp02 EP Interpretation: reviewed, normal General Appearance: alert, moderate distress, obese Head: atraumatic Eyes: bilateral eye normal inspection ENT: normal ENT inspection, hearing grossly normal, normal voice Neck: normal inspection, full range of motion, supple, no bony tend Respiratory: normal inspection, lungs clear, normal breath sounds, no respiratory distress, no retraction, no wheezing Cardiovascular #1: regular rate, rhythm, no edema Gastrointestinal: soft, other - Large lower abdomen surgical wound with some drainage, overweight Genitourinary: no CVA tenderness Musculoskeletal: normal range of motion, swelling - Lower extremity Neurologic: normal inspection, alert, responsive, speech normal Psychiatric: normal inspection, judgement/insight normal, mood/affect normal, anxious Skin: other - Erythema abdominal wall erythema abdominal wall with drainage Medical Decision Making Diagnostic Impression: Primary Impression: Wound infection after surgery ER Course Patient presents emergency department today complaining of abdominal discomfort and drainage at surgical site. Differential considerations include abscess, seroma, cellulitis just name a few. Patient exam is consistent with cellulitis. Given severity of discharge and pain I felt the patient require admission. Patient was started on vancomycin. Patient was also given pain medications. Case was discussed with Dr. Ernesto Nicole. Patient will be admitted for further management. Labs Test 03/03/19 16:45 White Blood Count 9.2 K/UL (4.8-10.8) Red Blood Count 3.46 M/UL (4.70-6.10) Hemoglobin 9.8 G/DL (14.2-18.0) Hematocrit 29.9 % (42.0-52.0) Mean Corpuscular Volume 86 FL (80-99) Mean Corpuscular Hemoglobin 28.3 PG (27.0-31.0) Mean Corpuscular Hemoglobin Concent 32.8 G/DL (32.0-36.0) Red Cell Distribution Width 13.3 % (11.6-14.8) Platelet Count 302 K/UL (150-450) Mean Platelet Volume 4.2 FL (6.5-10.1) Neutrophils (%) (Auto) 67.5 % (45.0-75.0) Lymphocytes (%) (Auto) 22.4 % (20.0-45.0) Monocytes (%) (Auto) 6.4 % (1.0-10.0) Eosinophils (%) (Auto) 3.0 % (0.0-3.0) Basophils (%) (Auto) 0.7 % (0.0-2.0) Prothrombin Time 10.0 SEC (9.30-11.50) Prothromb Time International Ratio 0.9 (0.9-1.1) Activated Partial Thromboplast Time 27 SEC (23-33) Sodium Level 138 MMOL/L (136-145) Potassium Level 4.7 MMOL/L (3.5-5.1) Chloride Level 101 MMOL/L (98-107) Carbon Dioxide Level 37 MMOL/L (21-32) Anion Gap 0 mmol/L (5-15) Blood Urea Nitrogen 19 mg/dL (7-18) Creatinine 0.9 MG/DL (0.55-1.30) Estimat Glomerular Filtration Rate > 60 mL/min (>60) Glucose Level 111 MG/DL (74-106) Calcium Level 9.3 MG/DL (8.5-10.1) Total Bilirubin 0.5 MG/DL (0.2-1.0) Aspartate Amino Transf (AST/SGOT) 45 U/L (15-37) Alanine Aminotransferase (ALT/SGPT) 40 U/L (12-78) Alkaline Phosphatase 219 U/L (46-116) Total Protein 7.7 G/DL (6.4-8.2) Albumin 2.2 G/DL (3.4-5.0) Globulin 5.5 g/dL Albumin/Globulin Ratio 0.4 (1.0-2.7) Lipase 120 U/L (73-393) Last Vital Signs Date Time Temp Pulse Resp B/P (MAP) Pulse Ox O2 Delivery O2 Flow Rate FiO2 03/03/19 16:05 98.1 80 20 130/90 (103) 95 Room Air Status: improved Disposition: ADMITTED INPATIENT Condition: Serious David Pope MD Mar 03, 2019 16:51
[2019-03-03 16:58] LABS: BASOPHILS % (AUTO) 0.7 % (0.0-2.0); HEMATOCRIT 29.9 % (42.0-52.0); HEMOGLOBIN 9.8 G/DL (14.2-18.0); LYMPHOCYTES % (AUTO) 22.4 % (20.0-45.0); MEAN CORPUSCULAR VOLUME 86 FL (80-99); MONOCYTES % (AUTO) 6.4 % (1.0-10.0); NEUTROPHILS % (AUTO) 67.5 % (45.0-75.0); PLATELET COUNT 302 K/UL (150-450); RED BLOOD COUNT 3.46 M/UL (4.70-6.10); RED CELL DISTRIBUTION WIDTH 13.3 % (11.6-14.8); WHITE BLOOD COUNT 9.2 K/UL (4.8-10.8)
[2019-03-03] MEDS ORDERED: Morphine Sulfate 4mg/ml Inj (IV USE ONLY) IVP ONE (17:00)
[2019-03-03 17:03] LABS: ANION GAP 0 mmol/L (5-15); BLOOD UREA NITROGEN 19 mg/dL (7-18); CALCIUM 9.3 MG/DL (8.5-10.1); CARBON DIOXIDE 37 MMOL/L (21-32); CHLORIDE 101 MMOL/L (98-107); CREATININE 0.9 MG/DL (0.55-1.30); POTASSIUM 4.7 MMOL/L (3.5-5.1); SODIUM 138 MMOL/L (136-145)
[2019-03-03 17:04] LABS: INR 0.9 (0.9-1.1)
[2019-03-03 17:08] LABS: ALANINE AMINOTRANSFERASE 40 U/L (12-78); ALBUMIN 2.2 G/DL (3.4-5.0); ALBUMIN/GLOBULIN RATIO 0.4 (1.0-2.7); ALKALINE PHOSPHATASE 219 U/L (46-116); ASPARTATE AMINO TRANSFERASE 45 U/L (15-37); BILIRUBIN,TOTAL 0.5 MG/DL (0.2-1.0)
[2019-03-03] MEDS ORDERED: NORCO 5-325 TA1 EACH ORAL (18:29)
[2019-03-03] MEDS ORDERED: HYDROmorphone 1mg/ml Carpuject IVP ONE (18:45)
[2019-03-03 19:22] VITALS: BP 130/76
--- NOTE | 2019-03-03 19:56 | Consultation ---
History of Present Illness General Date patient seen: Mar 03, 2019 Chief Complaint: General Complaint Present Illness HPI 53 y/o M with hx of CVA, HTN, bipolar disorder w/ psychotic features, tobacco abuse, anxiety disorder, chronic pain, CHF, seizure disorder, COPD, morbid obesity, Dm2, HTN, SNF resident, s/p panniculectomy 02/01 presents to ED on with increased drainage from area of recent panniculectomy, erythema and subjective fevers and chills Of note, patient recently admitted from 01/22-02/18 for panniculectomy and post- op care. Previously admitted from 12-14-12/27 for b/l leg cellulitis and panniculitis. Denied nausea/vomiting/diarrhea. Allergies: Coded Allergies: ASPIRIN (Verified Allergy, Unknown, 07/14/18) KETOROLAC (Verified Allergy, Unknown, 07/14/18) PENICILLINS (Verified Allergy, Unknown, 12/23/18) tolerated Ancef on 08/2018 Medication History Scheduled Amlodipine Besylate* (Amlodipine Besylate*), 5 MG ORAL DAILY, (Reported) Amlodipine Besylate* (Amlodipine Besylate*), 5 MG ORAL DAILY, (Reported) Clopidogrel* (Clopidogrel*), 75 MG ORAL DAILY, (Reported) Docusate Sodium* (Docusate Sodium*), 100 MG ORAL DAILY, (Reported) Duloxetine Hcl* (Cymbalta*), 60 MG ORAL DAILY, (Reported) Duloxetine Hcl* (Cymbalta*), 30 MG ORAL DAILY, (Reported) Enoxaparin* (Lovenox*), 40 MG SUBQ DAILY, (Reported) Fentanyl (Fentanyl), 1 PATCH TOPIC EVERY 72 HOURS, (Reported) Furosemide* (Lasix*), 10 MG ORAL Q8HR, (Reported) Gabapentin* (Gabapentin*), 900 MG ORAL THREE TIMES A DAY, (Reported) Lactobacillus Acidophilus (Acidophilus), 1 EACH PO BID, (Reported) Levetiracetam (Levetiracetam), 1,000 MG ORAL TID, (Reported) Levetiracetam (Keppra), 1,000 MG ORAL Q8HR, (Reported) Methadone Hcl* (Methadone*), 10 MG ORAL Q6HR, (Reported) Miconazole Nitrate (Miconazole Nitrate), 1 APPLIC TOPIC Q12HR, (Reported) Nitroglycerin (Nitro-Bid*), 1 INCH TOPIC Q8HR, (Reported) Pantoprazole* (Pantoprazole*), 40 MG ORAL BID, (Reported) Pantoprazole* (Protonix*), 40 MG ORAL ACBREAKFAST, (Reported) Sennosides (Senna), 2 TAB PO HS, (Reported) Scheduled PRN Hydrocodone Bit/Acetaminophen 5-325* ([place] 5-325*), 2 TAB ORAL Q6H PRN for For Pain, (Reported) Hydromorphone HCl/Pf (Dilaudid 0.5 mg/0.5 ml Syringe), 0.5 MG IJ EVERY 3 HOURS PRN for For Pain, (Reported) Methocarbamol* (Methocarbamol*), 500 MG ORAL Q8HR PRN for For Pain, (Reported) Ondansetron* (Zofran*), 4 MG ORAL Q4HR PRN for Nausea & Vomiting, (Reported) Ondansetron* (Zofran*), 4 MG IV Q6H PRN for Nausea & Vomiting, (Reported) Patient History Healthcare decision maker Resuscitation status Advanced Directive on File Patient History Narrative Pmhx: as above Shx: Denies: smoking, alcohol use, drug use Fhx: non contributory Review of Systems All Other Systems: negative except mentioned in HPI Physical Exam Physical Exam Narrative General Appearance: alert, moderate distress, obese Head: atraumatic Eyes: bilateral eye normal inspection ENT: normal ENT inspection, hearing grossly normal, normal voice Neck: normal inspection, full range of motion, supple, no bony tend Respiratory: normal inspection, lungs clear, normal breath sounds, no respiratory distress, no retraction, no wheezing Cardiovascular #1: regular rate, rhythm, no edema Gastrointestinal: soft, other - Large lower abdomen surgical wound with some drainage, overweight Genitourinary: no CVA tenderness Musculoskeletal: normal range of motion, swelling - Lower extremity Neurologic: normal inspection, alert, responsive, speech normal Psychiatric: normal inspection, judgement/insight normal, mood/affect normal, anxious Skin: other - Erythema abdominal wall erythema abdominal wall with drainage Last 24 Hour Vital Signs Date Time Temp Pulse Resp B/P (MAP) Pulse Ox O2 Delivery O2 Flow Rate FiO2 03/03/19 19:22 98.1 83 20 130/76 (94) 93 8/7/19 19:00 98.1 75 20 136/84 96 Room Air 03/03/19 17:48 98.1 03/03/19 16:30 80 20 Room Air 03/03/19 16:30 98.1 80 20 130/90 95 Room Air 03/03/19 16:05 98.1 80 20 130/90 (103) 95 Room Air Laboratory Tests Test 03/03/19 16:45 White Blood Count 9.2 K/UL (4.8-10.8) Red Blood Count 3.46 M/UL (4.70-6.10) L Hemoglobin 9.8 G/DL (14.2-18.0) L Hematocrit 29.9 % (42.0-52.0) L Mean Corpuscular Volume 86 FL (80-99) Mean Corpuscular Hemoglobin 28.3 PG (27.0-31.0) Mean Corpuscular Hemoglobin Concent 32.8 G/DL (32.0-36.0) Red Cell Distribution Width 13.3 % (11.6-14.8) Platelet Count 302 K/UL (150-450) Mean Platelet Volume 4.2 FL (6.5-10.1) L Neutrophils (%) (Auto) 67.5 % (45.0-75.0) Lymphocytes (%) (Auto) 22.4 % (20.0-45.0) Monocytes (%) (Auto) 6.4 % (1.0-10.0) Eosinophils (%) (Auto) 3.0 % (0.0-3.0) Basophils (%) (Auto) 0.7 % (0.0-2.0) Prothrombin Time 10.0 SEC (9.30-11.50) Prothromb Time International Ratio 0.9 (0.9-1.1) Activated Partial Thromboplast Time 27 SEC (23-33) Sodium Level 138 MMOL/L (136-145) Potassium Level 4.7 MMOL/L (3.5-5.1) Chloride Level 101 MMOL/L (98-107) Carbon Dioxide Level 37 MMOL/L (21-32) H Anion Gap 0 mmol/L (5-15) L Blood Urea Nitrogen 19 mg/dL (7-18) H Creatinine 0.9 MG/DL (0.55-1.30) Estimat Glomerular Filtration Rate > 60 mL/min (>60) Glucose Level 111 MG/DL (74-106) H Calcium Level 9.3 MG/DL (8.5-10.1) Total Bilirubin 0.5 MG/DL (0.2-1.0) Aspartate Amino Transf (AST/SGOT) 45 U/L (15-37) H Alanine Aminotransferase (ALT/SGPT) 40 U/L (12-78) Alkaline Phosphatase 219 U/L (46-116) H Total Protein 7.7 G/DL (6.4-8.2) Albumin 2.2 G/DL (3.4-5.0) L Globulin 5.5 g/dL Albumin/Globulin Ratio 0.4 (1.0-2.7) L Lipase 120 U/L (73-393) Height (Feet): 6 Weight (Pounds): 450 Assessment/Plan Assessment/Plan: Abx: IV Vancomycin x1 03/03 Assessment: Surgical site infection 02/01 SP Panniculectomy Afebrile No leukocytosis Recent hx of B/l Leg cellulitis and panniculitis 12/2018 - in the setting of chronic venous stasis, s/p Rx Recent seizure episode 11/2018 -had L side weakness and spasticity CVA HTN bipolar disorder w/ psychotic features tobacco abuse anxiety disorder chronic pain CHF seizure disorder COPD morbid obesity Dm2 HTN SNF resident Plan: -Continue empiric IV Vancomycin #1 and add Cefepime #1 for SSI -02/08 SP IV Vancomycin #8 -02/04 SP Aztreonam #4 -01/26 SP Fluconzole #5 - 01/07/19 SP IV Dapto d# 14 - 01/06/19 S/P Levofloxacin #7 - 12/25/18 sp Bactrim #4 and IV Ancef #3 for cellulitis -f/u cx -Monitor CBC/CMP, temperatures -wound cx -Sx consulted: Dr Reggie Roberts Thank you for this consultation. Will continue to follow along with you. Discussed with Alexa Robins M.D. Mar 03, 2019 19:56
[2019-03-03 20:00] VITALS: BP 119/61
[2019-03-03] MEDS ORDERED: Albuterol/Ipratropium 3ml neb HHN PRN (21:15)
[2019-03-03] MEDS ORDERED: Miralax 17gm pkt ORAL PRN (21:15)
[2019-03-03] MEDS ORDERED: Nitroglycerin Subl 0.4mg tab SL PRN (21:15)
[2019-03-03] MEDS ORDERED: Morphine Sulfate 2mg/ml Inj(IV/IM USE ONLY) IVP PRN (21:15)
[2019-03-03] MEDS: HYDROmorphone 1mg/ml Carpuject IVP PRN (22:32)
[2019-03-03] MEDS: Cefepime HCl 1 GM in D5W 55 ML IVPB SCH (22:33)
[2019-03-04] VITALS: BP 119/64
[2019-03-04] MEDS ORDERED: Vancomycin 1 GM in D5W 275 ML IV SCH (00:30)
[2019-03-04] MEDS: HYDROmorphone 1mg/ml Carpuject IVP PRN ×4 (01:33→12:08)
[2019-03-04] MEDS: Vancomycin 1gm/D5W 275ml IVPB SCH ×4 (01:34→17:57)
[2019-03-04 04:00] VITALS: BP 126/66
[2019-03-04] MEDS: Cefepime HCl 1 GM in D5W 55 ML IVPB SCH ×3 (06:12→21:12)
[2019-03-04 07:09] LABS: BASOPHILS % (AUTO) 1.3 % (0.0-2.0); EOSINOPHILS % (AUTO) 3.5 % (0.0-3.0); HEMATOCRIT 30.3 % (42.0-52.0); HEMOGLOBIN 9.9 G/DL (14.2-18.0); LYMPHOCYTES % (AUTO) 23.2 % (20.0-45.0); MEAN CORPUSCULAR VOLUME 88 FL (80-99); MONOCYTES % (AUTO) 6.5 % (1.0-10.0); NEUTROPHILS % (AUTO) 65.5 % (45.0-75.0); PLATELET COUNT 312 K/UL (150-450); RED BLOOD COUNT 3.43 M/UL (4.70-6.10); RED CELL DISTRIBUTION WIDTH 13.4 % (11.6-14.8); WHITE BLOOD COUNT 9.2 K/UL (4.8-10.8)
[2019-03-04 07:20] LABS: ALANINE AMINOTRANSFERASE 44 U/L (12-78); ALBUMIN 2.2 G/DL (3.4-5.0); ALBUMIN/GLOBULIN RATIO 0.4 (1.0-2.7); ALKALINE PHOSPHATASE 212 U/L (46-116); ANION GAP 6 mmol/L (5-15); ASPARTATE AMINO TRANSFERASE 53 U/L (15-37); BILIRUBIN,TOTAL 0.5 MG/DL (0.2-1.0); BLOOD UREA NITROGEN 18 mg/dL (7-18); CALCIUM 9.3 MG/DL (8.5-10.1); CARBON DIOXIDE 32 MMOL/L (21-32); CHLORIDE 99 MMOL/L (98-107); SODIUM 137 MMOL/L (136-145)
[2019-03-04 08:00] VITALS: BP 133/55
[2019-03-04] MEDS: DULoxetine 30mg cap ORAL SCH (08:18)
[2019-03-04] MEDS: Heparin 5000 units/ml inj SUBQ SCH ×2 (08:20→21:13)
[2019-03-04] MEDS ORDERED: Cefepime HCl 2 GM in D5W 110 ML IV SCH (09:00)
[2019-03-04 12:00] VITALS: BP 131/72
[2019-03-04] MEDS ORDERED: Naloxone 0.4mg/ml Inj IV PRN (13:00)
--- NOTE | 2019-03-04 13:18 | Consultation ---
History of Present Illness General Date patient seen: Mar 04, 2019 Time patient seen: 13:13 Chief Complaint: General Complaint Present Illness HPI Patient is 53 yom who is 1 month s/p panniculectomy. He was in a SNF but transferred to [facility] last night for possible cellulitis. Over the last few days he developed dehisence over 2 areas on the right lateral aspect of his incision and 2 areas over his left lateral incision. He had some drainage from the areas but no fevers/chills. He has not been smoking. Allergies: Coded Allergies: ASPIRIN (Verified Allergy, Unknown, 07/14/18) KETOROLAC (Verified Allergy, Unknown, 07/14/18) PENICILLINS (Verified Allergy, Unknown, 12/23/18) tolerated Ancef on 08/2018 Medication History Scheduled Amlodipine Besylate* (Amlodipine Besylate*), 5 MG ORAL DAILY, (Reported) Amlodipine Besylate* (Amlodipine Besylate*), 5 MG ORAL DAILY, (Reported) Clopidogrel* (Clopidogrel*), 75 MG ORAL DAILY, (Reported) Docusate Sodium* (Docusate Sodium*), 100 MG ORAL DAILY, (Reported) Duloxetine Hcl* (Cymbalta*), 60 MG ORAL DAILY, (Reported) Duloxetine Hcl* (Cymbalta*), 30 MG ORAL DAILY, (Reported) Enoxaparin* (Lovenox*), 40 MG SUBQ DAILY, (Reported) Fentanyl (Fentanyl), 1 PATCH TOPIC EVERY 72 HOURS, (Reported) Furosemide* (Lasix*), 10 MG ORAL Q8HR, (Reported) Gabapentin* (Gabapentin*), 900 MG ORAL THREE TIMES A DAY, (Reported) Lactobacillus Acidophilus (Acidophilus), 1 EACH PO BID, (Reported) Levetiracetam (Levetiracetam), 1,000 MG ORAL TID, (Reported) Levetiracetam (Keppra), 1,000 MG ORAL Q8HR, (Reported) Methadone Hcl* (Methadone*), 10 MG ORAL Q6HR, (Reported) Miconazole Nitrate (Miconazole Nitrate), 1 APPLIC TOPIC Q12HR, (Reported) Nitroglycerin (Nitro-Bid*), 1 INCH TOPIC Q8HR, (Reported) Pantoprazole* (Pantoprazole*), 40 MG ORAL BID, (Reported) Pantoprazole* (Protonix*), 40 MG ORAL ACBREAKFAST, (Reported) Sennosides (Senna), 2 TAB PO HS, (Reported) Scheduled PRN Hydrocodone Bit/Acetaminophen 5-325* ([place] 5-325*), 2 TAB ORAL Q6H PRN for For Pain, (Reported) Hydromorphone HCl/Pf (Dilaudid 0.5 mg/0.5 ml Syringe), 0.5 MG IJ EVERY 3 HOURS PRN for For Pain, (Reported) Methocarbamol* (Methocarbamol*), 500 MG ORAL Q8HR PRN for For Pain, (Reported) Ondansetron* (Zofran*), 4 MG ORAL Q4HR PRN for Nausea & Vomiting, (Reported) Ondansetron* (Zofran*), 4 MG IV Q6H PRN for Nausea & Vomiting, (Reported) Patient History Healthcare decision maker SELF Resuscitation status Full Code Advanced Directive on File Review of Systems Genitourinary: Reports: no symptoms Musculoskeletal: Reports: back pain Skin: Reports: see HPI Psychiatric: Reports: no symptoms Physical Exam General Appearance: no apparent distress, alert Skin Exam: other - About 85% of the incision is c/d/i. Left lateral incision with 2 areas of dehiscene and non purulent drainage. More medial dehiscence probes through the subcutaneous level. Right lateral aspect with suprficial dehisence in two areas. Mild erythema left lateral incision. No crepitus. No bullae Last 24 Hour Vital Signs Date Time Temp Pulse Resp B/P (MAP) Pulse Ox O2 Delivery O2 Flow Rate FiO2 03/04/19 09:00 Room Air 03/04/19 08:18 75 126/66 03/04/19 08:00 99.3 80 20 133/55 (81) 98 03/04/19 04:00 98.7 75 18 126/66 (86) 98 03/04/19 00:21 Room Air 03/04/19 00:00 98.6 71 18 119/64 (82) 99 03/03/19 21:00 Room Air 03/03/19 20:00 98.7 88 18 119/61 (80) 98 03/03/19 19:22 98.1 83 20 130/76 (94) 93 03/03/19 19:00 98.1 75 20 136/84 96 Room Air 03/03/19 17:48 98.1 03/03/19 16:30 80 20 Room Air 03/03/19 16:30 98.1 80 20 130/90 95 Room Air 03/03/19 16:05 98.1 80 20 130/90 (103) 95 Room Air Intake and Output 03/03/19 03/04/19 19:00 07:00 Intake Total 275 ml 385.000 ml Balance 275 ml 385.000 ml Intake Oral 0 ml IV Total 275 ml 385.000 ml # Voids 4 Laboratory Tests Test 03/03/19 16:45 03/04/19 06:10 White Blood Count 9.2 K/UL (4.8-10.8) 9.2 K/UL (4.8-10.8) Red Blood Count 3.46 M/UL (4.70-6.10) L 3.43 M/UL (4.70-6.10) L Hemoglobin 9.8 G/DL (14.2-18.0) L 9.9 G/DL (14.2-18.0) L Hematocrit 29.9 % (42.0-52.0) L 30.3 % (42.0-52.0) L Mean Corpuscular Volume 86 FL (80-99) 88 FL (80-99) Mean Corpuscular Hemoglobin 28.3 PG (27.0-31.0) 28.8 PG (27.0-31.0) Mean Corpuscular Hemoglobin Concent 32.8 G/DL (32.0-36.0) 32.6 G/DL (32.0-36.0) Red Cell Distribution Width 13.3 % (11.6-14.8) 13.4 % (11.6-14.8) Platelet Count 302 K/UL (150-450) 312 K/UL (150-450) Mean Platelet Volume 4.2 FL (6.5-10.1) L 4.0 FL (6.5-10.1) L Neutrophils (%) (Auto) 67.5 % (45.0-75.0) 65.5 % (45.0-75.0) Lymphocytes (%) (Auto) 22.4 % (20.0-45.0) 23.2 % (20.0-45.0) Monocytes (%) (Auto) 6.4 % (1.0-10.0) 6.5 % (1.0-10.0) Eosinophils (%) (Auto) 3.0 % (0.0-3.0) 3.5 % (0.0-3.0) H Basophils (%) (Auto) 0.7 % (0.0-2.0) 1.3 % (0.0-2.0) Prothrombin Time 10.0 SEC (9.30-11.50) Prothromb Time International Ratio 0.9 (0.9-1.1) Activated Partial Thromboplast Time 27 SEC (23-33) Sodium Level 138 MMOL/L (136-145) 137 MMOL/L (136-145) Potassium Level 4.7 MMOL/L (3.5-5.1) 5.0 MMOL/L (3.5-5.1) Chloride Level 101 MMOL/L (98-107) 99 MMOL/L (98-107) Carbon Dioxide Level 37 MMOL/L (21-32) H 32 MMOL/L (21-32) Anion Gap 0 mmol/L (5-15) L 6 mmol/L (5-15) Blood Urea Nitrogen 19 mg/dL (7-18) H 18 mg/dL (7-18) Creatinine 0.9 MG/DL (0.55-1.30) 1.0 MG/DL (0.55-1.30) Estimat Glomerular Filtration Rate > 60 mL/min (>60) > 60 mL/min (>60) Glucose Level 111 MG/DL (74-106) H 95 MG/DL (74-106) Calcium Level 9.3 MG/DL (8.5-10.1) 9.3 MG/DL (8.5-10.1) Total Bilirubin 0.5 MG/DL (0.2-1.0) 0.5 MG/DL (0.2-1.0) Aspartate Amino Transf (AST/SGOT) 45 U/L (15-37) H 53 U/L (15-37) H Alanine Aminotransferase (ALT/SGPT) 40 U/L (12-78) 44 U/L (12-78) Alkaline Phosphatase 219 U/L (46-116) H 212 U/L (46-116) H Total Protein 7.7 G/DL (6.4-8.2) 7.6 G/DL (6.4-8.2) Albumin 2.2 G/DL (3.4-5.0) L 2.2 G/DL (3.4-5.0) L Globulin 5.5 g/dL 5.4 g/dL Albumin/Globulin Ratio 0.4 (1.0-2.7) L 0.4 (1.0-2.7) L Lipase 120 U/L (73-393) Height (Feet): 6 Height (Inches): 0.00 Weight (Pounds): 450 Medications Current Medications Medications (Trade) Dose Ordered Sig/Luis Route PRN Reason Start Time Stop Time Status Last Admin Dose Admin Acetaminophen (Tylenol) 650 mg Q4H PRN ORAL fever 03/03/19 21:15 04/02/19 21:14 Albuterol/ Ipratropium (Albuterol/ Ipratropium) 3 ml Q4H PRN HHN Shortness of Breath 03/03/19 21:15 03/08/19 21:14 Amlodipine Besylate (Norvasc) 5 mg DAILY ORAL 03/04/19 09:00 04/03/19 08:59 03/04/19 08:18 Cefepime HCl 1 gm/ Dextrose 55 ml @ 110 mls/hr EVERY 8 HOURS IVPB 03/03/19 22:00 03/10/19 21:59 03/04/19 06:12 Duloxetine HCl (Cymbalta) 30 mg DAILY ORAL 03/04/19 09:00 04/03/19 08:59 03/04/19 08:18 Fentanyl (Duragesic) 1 patch EVERY 72 HOURS TDERMAL 03/04/19 14:00 03/11/19 13:59 Furosemide (Lasix) 10 mg Q8HR ORAL 03/03/19 22:00 04/02/19 21:59 Heparin Sodium (Porcine) (Heparin 5000 units/ml) 5,000 units EVERY 12 HOURS SUBQ 03/04/19 09:00 04/03/19 08:59 03/04/19 08:20 Hydromorphone HCl (Dilaudid) 2 mg Q3H PRN IVP Severe Pain (Pain Scale 7-10) 03/04/19 15:00 03/11/19 14:59 Levetiracetam (Keppra) 1,000 mg Q8HR ORAL 03/03/19 22:00 04/02/19 21:59 03/04/19 06:11 Miscellaneous Medication (fentaNYL Destruction) 1 ea Q72H MISC 03/07/19 14:00 04/06/19 13:59 Morphine Sulfate (Morphine Sulfate) 2 mg Q4H PRN IVP Moderate Pain (Pain Scale 4-6) 03/03/19 21:15 03/10/19 21:14 Naloxone HCl (Narcan) 0.1 mg PRN IV Sedation scale 3 or 4 03/04/19 13:00 04/03/19 12:59 Nitroglycerin (Ntg) 0.4 mg Q5M PRN SL Prn Chest Pain 03/03/19 21:15 04/02/19 21:14 Ondansetron HCl (Zofran) 4 mg Q6H PRN IVP Nausea & Vomiting 03/03/19 21:15 04/02/19 21:14 Polyethylene Glycol (Miralax) 17 gm DAILYPRN PRN ORAL Constipation 03/03/19 21:15 04/02/19 21:14 Temazepam (Restoril) 15 mg HSPRN PRN ORAL Insomnia 03/03/19 21:15 03/10/19 21:14 Vancomycin HCl (Vanco rx to dose) 1 ea DAILY PRN MISC Per rx protocol 03/03/19 20:45 04/02/19 20:44 Vancomycin HCl 1 gm/Dextrose 275 ml @ 183.708 mls/hr Q12HR@0500,1700 IVPB 03/04/19 05:00 03/09/19 04:59 03/04/19 01:34 Assessment/Plan Status: stable Assessment/Plan: One month s/p panniculectomy now with cellulitis and small areas of dehiscence. This is not an unsual complication for this operation. Will need to continue iv abx and initiate wound care. No role for surgical debridement or attempts at delayed primary closure at this time. Reggie Roberts MD Mar 04, 2019 13:18
[2019-03-04 16:00] VITALS: BP 124/76
--- NOTE | 2019-03-04 17:00 | History and Physical Report ---
DATE OF ADMISSION: 03/03/2019 TIME SEEN: 11 a.m. CONSULTANTS: 1. Reggie Roberts M.D. 2. Bill Dixon M.D. 3. Harry Frank M.D. 4. Gt Fernandez M.D. CHIEF COMPLAINT: Wound infection, dehiscence. BRIEF HISTORY: The patient is a 53-year-old male from [facility] with history of abdominal pannus surgery about a month ago presents to [facility] with wound opening, slightly red, infected, draining. The patient diagnosed with wound dehiscence and infection, admitted to medical floor for further treatment. Currently, calm in bed, slight general pain, no complaint. REVIEW OF SYSTEMS: No chest pain. No shortness of breath. No nausea, vomiting, or diarrhea. PAST MEDICAL HISTORY: Includes morbid obese, COPD, hypertension. PAST SURGICAL HISTORY: Recent abdominal pannus surgery and right knee surgery. MEDICATIONS: Include amlodipine, heparin, cefepime, vancomycin, methadone, levetiracetam, hydromorphone, fentanyl, polyethylene glycol, morphine, Tylenol. ALLERGIES: 1. Penicillin. 2. Aspirin. 3. Toradol. SOCIAL HISTORY: No smoking. No alcohol. No intravenous drug use. FAMILY HISTORY: Noncontributory. PHYSICAL EXAMINATION: GENERAL: Calm in bed, oriented x3, slight distress secondary to pain. VITAL SIGNS: Temperature is 99, pulse 80, respiratory rate 20, blood pressure 132/55. CARDIOVASCULAR: No murmurs. LUNGS: Poor air exchange. ABDOMEN: Bowel sounds distant. Abdominal area, on the right side, there was slight opening of the suture as well left side slightly draining, slightly red in the abdominal pannus area. EXTREMITIES: No cyanosis, clubbing, 1+ edema. LABORATORY AND DIAGNOSTIC DATA: Hemoglobin and hematocrit of 9.9/30, otherwise CBC is normal. BMP shows AST 53, alkaline phosphatase 212, albumin 2.2. INR 0.9. ASSESSMENT: 1. Wound infection. 2. Wound dehiscence. 3. Morbid obesity. 4. Anemia. 5. Malnutrition. 6. COPD. 7. Hypertension. PLAN: 1. Pain control. 2. Wound care. 3. Antibiotics per Infectious Diseases. 4. Blood pressure control. 5. Dietary followup. Ernesto Nicole D.O. DR: Himanshu JOB#: [id number] CC:
[2019-03-04 20:00] VITALS: BP 123/60
--- NOTE | 2019-03-04 20:33 | Consultation ---
History of Present Illness General Chief Complaint: General Complaint Present Illness Allergies: Coded Allergies: ASPIRIN (Verified Allergy, Unknown, 07/14/18) KETOROLAC (Verified Allergy, Unknown, 07/14/18) PENICILLINS (Verified Allergy, Unknown, 12/23/18) tolerated Ancef on 08/2018 Medication History Scheduled Amlodipine Besylate* (Amlodipine Besylate*), 5 MG ORAL DAILY, (Reported) Amlodipine Besylate* (Amlodipine Besylate*), 5 MG ORAL DAILY, (Reported) Clopidogrel* (Clopidogrel*), 75 MG ORAL DAILY, (Reported) Docusate Sodium* (Docusate Sodium*), 100 MG ORAL DAILY, (Reported) Duloxetine Hcl* (Cymbalta*), 60 MG ORAL DAILY, (Reported) Duloxetine Hcl* (Cymbalta*), 30 MG ORAL DAILY, (Reported) Enoxaparin* (Lovenox*), 40 MG SUBQ DAILY, (Reported) Fentanyl (Fentanyl), 1 PATCH TOPIC EVERY 72 HOURS, (Reported) Furosemide* (Lasix*), 10 MG ORAL Q8HR, (Reported) Gabapentin* (Gabapentin*), 900 MG ORAL THREE TIMES A DAY, (Reported) Lactobacillus Acidophilus (Acidophilus), 1 EACH PO BID, (Reported) Levetiracetam (Levetiracetam), 1,000 MG ORAL TID, (Reported) Levetiracetam (Keppra), 1,000 MG ORAL Q8HR, (Reported) Methadone Hcl* (Methadone*), 10 MG ORAL Q6HR, (Reported) Miconazole Nitrate (Miconazole Nitrate), 1 APPLIC TOPIC Q12HR, (Reported) Nitroglycerin (Nitro-Bid*), 1 INCH TOPIC Q8HR, (Reported) Pantoprazole* (Pantoprazole*), 40 MG ORAL BID, (Reported) Pantoprazole* (Protonix*), 40 MG ORAL ACBREAKFAST, (Reported) Sennosides (Senna), 2 TAB PO HS, (Reported) Scheduled PRN Hydrocodone Bit/Acetaminophen 5-325* ([place] 5-325*), 2 TAB ORAL Q6H PRN for For Pain, (Reported) Hydromorphone HCl/Pf (Dilaudid 0.5 mg/0.5 ml Syringe), 0.5 MG IJ EVERY 3 HOURS PRN for For Pain, (Reported) Methocarbamol* (Methocarbamol*), 500 MG ORAL Q8HR PRN for For Pain, (Reported) Ondansetron* (Zofran*), 4 MG ORAL Q4HR PRN for Nausea & Vomiting, (Reported) Ondansetron* (Zofran*), 4 MG IV Q6H PRN for Nausea & Vomiting, (Reported) Patient History Healthcare decision maker SELF Resuscitation status Full Code Advanced Directive on File Physical Exam Last 24 Hour Vital Signs Date Time Temp Pulse Resp B/P (MAP) Pulse Ox O2 Delivery O2 Flow Rate FiO2 03/04/19 16:00 99.7 74 20 124/76 (92) 97 03/04/19 12:00 98.7 73 20 131/72 (91) 98 03/04/19 09:00 Room Air 03/04/19 08:18 75 126/66 03/04/19 08:00 99.3 80 20 133/55 (81) 98 03/04/19 04:00 98.7 75 18 126/66 (86) 98 03/04/19 00:21 Room Air 03/04/19 00:00 98.6 71 18 119/64 (82) 99 03/03/19 21:00 Room Air Intake and Output 03/03/19 03/04/19 19:00 07:00 Intake Total 275 ml 385.000 ml Balance 275 ml 385.000 ml Intake Oral 0 ml IV Total 275 ml 385.000 ml # Voids 4 Laboratory Tests Test 03/04/19 06:10 White Blood Count 9.2 K/UL (4.8-10.8) Red Blood Count 3.43 M/UL (4.70-6.10) L Hemoglobin 9.9 G/DL (14.2-18.0) L Hematocrit 30.3 % (42.0-52.0) L Mean Corpuscular Volume 88 FL (80-99) Mean Corpuscular Hemoglobin 28.8 PG (27.0-31.0) Mean Corpuscular Hemoglobin Concent 32.6 G/DL (32.0-36.0) Red Cell Distribution Width 13.4 % (11.6-14.8) Platelet Count 312 K/UL (150-450) Mean Platelet Volume 4.0 FL (6.5-10.1) L Neutrophils (%) (Auto) 65.5 % (45.0-75.0) Lymphocytes (%) (Auto) 23.2 % (20.0-45.0) Monocytes (%) (Auto) 6.5 % (1.0-10.0) Eosinophils (%) (Auto) 3.5 % (0.0-3.0) H Basophils (%) (Auto) 1.3 % (0.0-2.0) Sodium Level 137 MMOL/L (136-145) Potassium Level 5.0 MMOL/L (3.5-5.1) Chloride Level 99 MMOL/L (98-107) Carbon Dioxide Level 32 MMOL/L (21-32) Anion Gap 6 mmol/L (5-15) Blood Urea Nitrogen 18 mg/dL (7-18) Creatinine 1.0 MG/DL (0.55-1.30) Estimat Glomerular Filtration Rate > 60 mL/min (>60) Glucose Level 95 MG/DL (74-106) Calcium Level 9.3 MG/DL (8.5-10.1) Total Bilirubin 0.5 MG/DL (0.2-1.0) Aspartate Amino Transf (AST/SGOT) 53 U/L (15-37) H Alanine Aminotransferase (ALT/SGPT) 44 U/L (12-78) Alkaline Phosphatase 212 U/L (46-116) H Total Protein 7.6 G/DL (6.4-8.2) Albumin 2.2 G/DL (3.4-5.0) L Globulin 5.4 g/dL Albumin/Globulin Ratio 0.4 (1.0-2.7) L Microbiology Date/Time Source Procedure Growth Status 03/04/19 00:00 Abdomen Gram Stain - Final Resulted 03/04/19 00:00 Abdomen Wound Culture Pending Resulted Height (Feet): 6 Height (Inches): 0.00 Weight (Pounds): 450 Medications Current Medications Medications (Trade) Dose Ordered Sig/Luis Route PRN Reason Start Time Stop Time Status Last Admin Dose Admin Acetaminophen (Tylenol) 650 mg Q4H PRN ORAL fever 03/03/19 21:15 04/02/19 21:14 Albuterol/ Ipratropium (Albuterol/ Ipratropium) 3 ml Q4H PRN HHN Shortness of Breath 03/03/19 21:15 03/08/19 21:14 Amlodipine Besylate (Norvasc) 5 mg DAILY ORAL 03/04/19 09:00 04/03/19 08:59 03/04/19 08:18 Cefepime HCl 1 gm/ Dextrose 55 ml @ 110 mls/hr EVERY 8 HOURS IVPB 03/03/19 22:00 03/10/19 21:59 03/04/19 14:00 Duloxetine HCl (Cymbalta) 30 mg DAILY ORAL 03/04/19 09:00 04/03/19 08:59 03/04/19 08:18 Fentanyl (Duragesic) 1 patch EVERY 72 HOURS TDERMAL 03/04/19 14:00 03/11/19 13:59 03/04/19 13:58 Furosemide (Lasix) 10 mg Q8HR ORAL 03/03/19 22:00 04/02/19 21:59 Heparin Sodium (Porcine) (Heparin 5000 units/ml) 5,000 units EVERY 12 HOURS SUBQ 03/04/19 09:00 04/03/19 08:59 03/04/19 08:20 Hydromorphone HCl (Dilaudid) 2 mg Q3H PRN IVP Severe Pain (Pain Scale 7-10) 03/04/19 15:00 03/11/19 14:59 03/04/19 19:06 Levetiracetam (Keppra) 1,000 mg Q8HR ORAL 03/03/19 22:00 04/02/19 21:59 03/04/19 14:00 Miscellaneous Medication (fentaNYL Destruction) 1 ea Q72H MISC 03/07/19 13:59 04/06/19 13:58 Morphine Sulfate (Morphine Sulfate) 2 mg Q4H PRN IVP Moderate Pain (Pain Scale 4-6) 03/03/19 21:15 03/10/19 21:14 Naloxone HCl (Narcan) 0.1 mg PRN IV Sedation scale 3 or 4 03/04/19 13:00 04/03/19 12:59 Nitroglycerin (Ntg) 0.4 mg Q5M PRN SL Prn Chest Pain 03/03/19 21:15 04/02/19 21:14 Ondansetron HCl (Zofran) 4 mg Q6H PRN IVP Nausea & Vomiting 03/03/19 21:15 04/02/19 21:14 Polyethylene Glycol (Miralax) 17 gm DAILYPRN PRN ORAL Constipation 03/03/19 21:15 04/02/19 21:14 Temazepam (Restoril) 15 mg HSPRN PRN ORAL Insomnia 03/03/19 21:15 03/10/19 21:14 Vancomycin HCl (Vanco rx to dose) 1 ea DAILY PRN MISC Per rx protocol 03/03/19 20:45 04/02/19 20:44 Vancomycin HCl 1 gm/Dextrose 275 ml @ 183.708 mls/hr Q12HR@0500,1700 IVPB 03/04/19 05:00 03/09/19 04:59 03/04/19 17:57 Bill Dixon MD Mar 04, 2019 20:33
--- NOTE | 2019-03-04 21:03 | Infectious Diseases Prog Note ---
Assessment/Plan Assessment/Plan Assessment: Surgical site infection 02/01 SP Panniculectomy Afebrile No leukocytosis Recent hx of B/l Leg cellulitis and panniculitis 12/2018 - in the setting of chronic venous stasis, s/p Rx Recent seizure episode 11/2018 -had L side weakness and spasticity CVA HTN bipolar disorder w/ psychotic features tobacco abuse anxiety disorder chronic pain CHF seizure disorder COPD morbid obesity Dm2 HTN SNF resident Plan: -Continue empiric IV Vancomycin #2 and add Cefepime #2 for SSI pending wound cx -02/08 SP IV Vancomycin #8 -02/04 SP Aztreonam #4 -/ SP Fluconzole #5 - 01/07/19 SP IV Dapto d# 14 - 01/06/19 S/P Levofloxacin #7 - 12/25/18 sp Bactrim #4 and IV Ancef #3 for cellulitis -f/u cx -Monitor CBC/CMP, temperatures -wound cx -Sx f/u: Dr Reggie Roberts Thank you for this consultation. Will continue to follow along with you. Discussed with RN Subjective Allergies: Coded Allergies: ASPIRIN (Verified Allergy, Unknown, 07/14/18) KETOROLAC (Verified Allergy, Unknown, 07/14/18) PENICILLINS (Verified Allergy, Unknown, 12/23/18) tolerated Ancef on 08/2018 Subjective afebrile no leukocytosis Objective Vital Signs Last 24 Hour Vital Signs Date Time Temp Pulse Resp B/P (MAP) Pulse Ox O2 Delivery O2 Flow Rate FiO2 03/04/19 16:00 99.7 74 20 124/76 (92) 97 03/04/19 12:00 98.7 73 20 131/72 (91) 98 03/04/19 09:00 Room Air 03/04/19 08:18 75 126/66 03/04/19 08:00 99.3 80 20 133/55 (81) 98 03/04/19 04:00 98.7 75 18 126/66 (86) 98 03/04/19 00:21 Room Air 03/04/19 00:00 98.6 71 18 119/64 (82) 99 03/03/19 21:00 Room Air Height (Feet): 6 Height (Inches): 0.00 Weight (Pounds): 450 Objective General Appearance: alert, moderate distress, obese Head: atraumatic Eyes: bilateral eye normal inspection ENT: normal ENT inspection, hearing grossly normal, normal voice Neck: normal inspection, full range of motion, supple, no bony tend Respiratory: normal inspection, lungs clear, normal breath sounds, no respiratory distress, no retraction, no wheezing Cardiovascular #1: regular rate, rhythm, no edema Gastrointestinal: soft, other - Large lower abdomen surgical wound with some drainage, overweight Genitourinary: no CVA tenderness Musculoskeletal: normal range of motion, swelling - Lower extremity Neurologic: normal inspection, alert, responsive, speech normal Psychiatric: normal inspection, judgement/insight normal, mood/affect normal, anxious Skin: other - Erythema abdominal wall erythema abdominal wall with drainage Microbiology Date/Time Source Procedure Growth Status 03/04/19 00:00 Abdomen Gram Stain - Final Resulted 03/04/19 00:00 Abdomen Wound Culture Pending Resulted Laboratory Tests Test 03/04/19 06:10 White Blood Count 9.2 K/UL (4.8-10.8) Red Blood Count 3.43 M/UL (4.70-6.10) L Hemoglobin 9.9 G/DL (14.2-18.0) L Hematocrit 30.3 % (42.0-52.0) L Mean Corpuscular Volume 88 FL (80-99) Mean Corpuscular Hemoglobin 28.8 PG (27.0-31.0) Mean Corpuscular Hemoglobin Concent 32.6 G/DL (32.0-36.0) Red Cell Distribution Width 13.4 % (11.6-14.8) Platelet Count 312 K/UL (150-450) Mean Platelet Volume 4.0 FL (6.5-10.1) L Neutrophils (%) (Auto) 65.5 % (45.0-75.0) Lymphocytes (%) (Auto) 23.2 % (20.0-45.0) Monocytes (%) (Auto) 6.5 % (1.0-10.0) Eosinophils (%) (Auto) 3.5 % (0.0-3.0) H Basophils (%) (Auto) 1.3 % (0.0-2.0) Sodium Level 137 MMOL/L (136-145) Potassium Level 5.0 MMOL/L (3.5-5.1) Chloride Level 99 MMOL/L (98-107) Carbon Dioxide Level 32 MMOL/L (21-32) Anion Gap 6 mmol/L (5-15) Blood Urea Nitrogen 18 mg/dL (7-18) Creatinine 1.0 MG/DL (0.55-1.30) Estimat Glomerular Filtration Rate > 60 mL/min (>60) Glucose Level 95 MG/DL (74-106) Calcium Level 9.3 MG/DL (8.5-10.1) Total Bilirubin 0.5 MG/DL (0.2-1.0) Aspartate Amino Transf (AST/SGOT) 53 U/L (15-37) H Alanine Aminotransferase (ALT/SGPT) 44 U/L (12-78) Alkaline Phosphatase 212 U/L (46-116) H Total Protein 7.6 G/DL (6.4-8.2) Albumin 2.2 G/DL (3.4-5.0) L Globulin 5.4 g/dL Albumin/Globulin Ratio 0.4 (1.0-2.7) L Current Medications Medications (Trade) Dose Ordered Sig/Luis Route PRN Reason Start Time Stop Time Status Last Admin Dose Admin Acetaminophen (Tylenol) 650 mg Q4H PRN ORAL fever 03/03/19 21:15 04/02/19 21:14 Albuterol/ Ipratropium (Albuterol/ Ipratropium) 3 ml Q4H PRN HHN Shortness of Breath 03/03/19 21:15 03/08/19 21:14 Amlodipine Besylate (Norvasc) 5 mg DAILY ORAL 03/04/19 09:00 04/03/19 08:59 03/04/19 08:18 Cefepime HCl 1 gm/ Dextrose 55 ml @ 110 mls/hr EVERY 8 HOURS IVPB 03/03/19 22:00 03/10/19 21:59 03/04/19 14:00 Duloxetine HCl (Cymbalta) 30 mg DAILY ORAL 03/04/19 09:00 04/03/19 08:59 03/04/19 08:18 Fentanyl (Duragesic) 1 patch EVERY 72 HOURS TDERMAL 03/04/19 14:00 03/11/19 13:59 03/04/19 13:58 Furosemide (Lasix) 10 mg Q8HR ORAL 03/03/19 22:00 04/02/19 21:59 Heparin Sodium (Porcine) (Heparin 5000 units/ml) 5,000 units EVERY 12 HOURS SUBQ 03/04/19 09:00 04/03/19 08:59 03/04/19 08:20 Hydromorphone HCl (Dilaudid) 2 mg Q3H PRN IVP Severe Pain (Pain Scale 7-10) 03/04/19 15:00 03/11/19 14:59 03/04/19 19:06 Levetiracetam (Keppra) 1,000 mg Q8HR ORAL 03/03/19 22:00 04/02/19 21:59 03/04/19 14:00 Miscellaneous Medication (fentaNYL Destruction) 1 ea Q72H MISC 03/07/19 13:59 04/06/19 13:58 Morphine Sulfate (Morphine Sulfate) 2 mg Q4H PRN IVP Moderate Pain (Pain Scale 4-6) 03/03/19 21:15 03/10/19 21:14 Naloxone HCl (Narcan) 0.1 mg PRN IV Sedation scale 3 or 4 03/04/19 13:00 04/03/19 12:59 Nitroglycerin (Ntg) 0.4 mg Q5M PRN SL Prn Chest Pain 03/03/19 21:15 04/02/19 21:14 Ondansetron HCl (Zofran) 4 mg Q6H PRN IVP Nausea & Vomiting 03/03/19 21:15 04/02/19 21:14 Polyethylene Glycol (Miralax) 17 gm DAILYPRN PRN ORAL Constipation 03/03/19 21:15 04/02/19 21:14 Temazepam (Restoril) 15 mg HSPRN PRN ORAL Insomnia 03/03/19 21:15 03/10/19 21:14 Vancomycin HCl (Vanco rx to dose) 1 ea DAILY PRN MISC Per rx protocol 03/03/19 20:45 04/02/19 20:44 Vancomycin HCl 1 gm/Dextrose 275 ml @ 183.708 mls/hr Q12HR@0500,1700 IVPB 03/04/19 05:00 03/09/19 04:59 03/04/19 17:57 Alexa Patterson M.D. Mar 04, 2019 21:03
[2019-03-05] VITALS: BP 126/63
[2019-03-05 04:00] VITALS: BP 135/70
[2019-03-05 04:24] LABS: BASOPHILS % (AUTO) 0.5 % (0.0-2.0); EOSINOPHILS % (AUTO) 3.4 % (0.0-3.0); HEMATOCRIT 28.4 % (42.0-52.0); HEMOGLOBIN 8.9 G/DL (14.2-18.0); LYMPHOCYTES % (AUTO) 21.9 % (20.0-45.0); MEAN CORPUSCULAR VOLUME 89 FL (80-99); MONOCYTES % (AUTO) 7.8 % (1.0-10.0); NEUTROPHILS % (AUTO) 66.4 % (45.0-75.0); PLATELET COUNT 299 K/UL (150-450); RED BLOOD COUNT 3.18 M/UL (4.70-6.10); RED CELL DISTRIBUTION WIDTH 13.9 % (11.6-14.8)
[2019-03-05 04:37] LABS: ANION GAP 0 mmol/L (5-15); BLOOD UREA NITROGEN 17 mg/dL (7-18); CALCIUM 8.9 MG/DL (8.5-10.1); CARBON DIOXIDE 36 MMOL/L (21-32); CHLORIDE 100 MMOL/L (98-107); CREATININE 0.9 MG/DL (0.55-1.30); POTASSIUM 4.3 MMOL/L (3.5-5.1); SODIUM 136 MMOL/L (136-145)
[2019-03-05] MEDS: Vancomycin 1gm/D5W 275ml IVPB SCH ×6 (05:00→15:33)
[2019-03-05] MEDS: Cefepime HCl 1 GM in D5W 55 ML IVPB SCH ×3 (05:34→22:24)
[2019-03-05 08:00] VITALS: BP 128/74
--- NOTE | 2019-03-05 09:02 | General Progress Note ---
Assessment/Plan Problem List: (1) Wound infection after surgery ICD Codes: T81.49XA - Infection following a procedure, other surgical site, initial encounter SNOMED: 36532941, 895304332 (2) Cellulitis ICD Codes: L03.90 - Cellulitis, unspecified SNOMED: 257713835 (3) COPD (chronic obstructive pulmonary disease) ICD Codes: J44.9 - Chronic obstructive pulmonary disease, unspecified SNOMED: 18745389 (4) Morbid obesity ICD Codes: E66.01 - Morbid (severe) obesity due to excess calories SNOMED: 631978592 (5) Abdominal pannus ICD Codes: E65 - Localized adiposity SNOMED: 1930407120063 (6) Peripheral edema ICD Codes: R60.9 - Edema, unspecified SNOMED: 205506671 (7) Abdominal wall cellulitis ICD Codes: L03.311 - Cellulitis of abdominal wall SNOMED: 96550094 Status: stable, progressing Assessment/Plan: o2 pulm tx wound care abx cbc bmp am Subjective Constitutional: Reports: weakness Allergies: Coded Allergies: ASPIRIN (Verified Allergy, Unknown, 07/14/18) KETOROLAC (Verified Allergy, Unknown, 07/14/18) PENICILLINS (Verified Allergy, Unknown, 12/23/18) tolerated Ancef on 08/2018 All Systems: reviewed and negative except above Subjective o2nc calm in bed Objective Last 24 Hour Vital Signs Date Time Temp Pulse Resp B/P (MAP) Pulse Ox O2 Delivery O2 Flow Rate FiO2 03/05/19 08:00 97.6 75 17 128/74 (92) 96 03/05/19 07:24 94 Nasal Cannula 2.0 28 03/05/19 07:24 76 17 94 Nasal Cannula 2.0 28 03/05/19 04:00 98.2 77 19 135/70 (91) 97 03/05/19 00:00 98.2 88 20 126/63 (84) 95 03/04/19 21:00 Room Air 03/04/19 20:24 80 18 92 Nasal Cannula 2.0 28 03/04/19 20:24 92 Nasal Cannula 2.0 28 03/04/19 20:00 98.4 85 20 123/60 (81) 92 03/04/19 16:00 99.7 74 20 124/76 (92) 97 03/04/19 12:00 98.7 73 20 131/72 (91) 98 Intake and Output 03/04/19 03/05/19 19:00 07:00 Intake Total 1080 ml 760 ml Balance 1080 ml 760 ml Intake Oral 1080 ml IV Total 110 ml Other 650 ml # Voids 4 4 Laboratory Tests 03/05/19 04:19: White Blood Count 10.0, Red Blood Count 3.18L, Hemoglobin 8.9L, Hematocrit 28.4L , Mean Corpuscular Volume 89, Mean Corpuscular Hemoglobin 28.1, Mean Corpuscular Hemoglobin Concent 31.5L, Red Cell Distribution Width 13.9, Platelet Count 299, Mean Platelet Volume 4.4L, Neutrophils (%) (Auto) 66.4, Lymphocytes (%) (Auto) 21.9, Monocytes (%) (Auto) 7.8, Eosinophils (%) (Auto) 3.4H, Basophils (%) (Auto) 0.5, Sodium Level 136, Potassium Level 4.3, Chloride Level 100, Carbon Dioxide Level 36H, Anion Gap 0L, Blood Urea Nitrogen 17, Creatinine 0.9, Estimat Glomerular Filtration Rate > 60, Glucose Level 99, Calcium Level 8.9, Vancomycin Level Trough 7.8 Height (Feet): 6 Height (Inches): 0.00 Weight (Pounds): 450 General Appearance: lethargic EENT: normal ENT inspection Neck: normal alignment Cardiovascular: normal peripheral pulses, normal rate, regular rhythm Respiratory/Chest: chest wall non-tender, lungs clear, normal breath sounds Abdomen: normal bowel sounds, non tender, distended Extremities: normal inspection Edema: 1+ Arm (L), 1+ Arm (R), 1+ Leg (L), 1+ Leg (R), 1+ Pedal (L), 1+ Pedal ( R), 1+ Generalized Edema: trace edema Neurologic: motor weakness Skin: normal pigmentation, warm/dry Ernesto Nicole DO Mar 05, 2019 09:02
[2019-03-05] MEDS: DULoxetine 30mg cap ORAL SCH (09:10)
[2019-03-05] MEDS: Heparin 5000 units/ml inj SUBQ SCH ×2 (09:11→21:00)
[2019-03-05 12:00] VITALS: BP 110/77
--- NOTE | 2019-03-05 12:50 | Infectious Diseases Prog Note ---
Assessment/Plan Assessment/Plan Assessment: Surgical site infection -wound cx S. aureus (sensi pending), GNR 02/01 SP Panniculectomy Afebrile No leukocytosis Recent hx of B/l Leg cellulitis and panniculitis 12/2018 - in the setting of chronic venous stasis, s/p Rx Recent seizure episode 11/2018 -had L side weakness and spasticity CVA HTN bipolar disorder w/ psychotic features tobacco abuse anxiety disorder chronic pain CHF seizure disorder COPD morbid obesity Dm2 HTN SNF resident Plan: -Continue empiric IV Vancomycin #3 and add Cefepime #3 for SSI pending wound cx -02/08 SP IV Vancomycin #8 -02/04 SP Aztreonam #4 -/ SP Fluconzole #5 - 01/07/19 SP IV Dapto d# 14 - 01/06/19 S/P Levofloxacin #7 - 12/25/18 sp Bactrim #4 and IV Ancef #3 for cellulitis -f/u cx -Monitor CBC/CMP, temperatures -wound cx -Sx f/u: Dr Reggie Roberts Thank you for this consultation. Will continue to follow along with you. Discussed with RN Subjective Allergies: Coded Allergies: ASPIRIN (Verified Allergy, Unknown, 07/14/18) KETOROLAC (Verified Allergy, Unknown, 07/14/18) PENICILLINS (Verified Allergy, Unknown, 12/23/18) tolerated Ancef on 08/2018 Subjective afebrile no leukocytosis Objective Vital Signs Last 24 Hour Vital Signs Date Time Temp Pulse Resp B/P (MAP) Pulse Ox O2 Delivery O2 Flow Rate FiO2 03/05/19 09:10 75 128/74 03/05/19 08:30 Room Air 03/05/19 08:00 97.6 75 17 128/74 (92) 96 03/05/19 07:24 94 Nasal Cannula 2.0 28 03/05/19 07:24 76 17 94 Nasal Cannula 2.0 28 03/05/19 04:00 98.2 77 19 135/70 (91) 97 03/05/19 00:00 98.2 88 20 126/63 (84) 95 03/04/19 21:00 Room Air 03/04/19 20:24 80 18 92 Nasal Cannula 2.0 28 03/04/19 20:24 92 Nasal Cannula 2.0 28 03/04/19 20:00 98.4 85 20 123/60 (81) 92 03/04/19 16:00 99.7 74 20 124/76 (92) 97 Height (Feet): 6 Height (Inches): 0.00 Weight (Pounds): 450 Objective General Appearance: alert, moderate distress, obese Head: atraumatic Eyes: bilateral eye normal inspection ENT: normal ENT inspection, hearing grossly normal, normal voice Neck: normal inspection, full range of motion, supple, no bony tend Respiratory: normal inspection, lungs clear, normal breath sounds, no respiratory distress, no retraction, no wheezing Cardiovascular #1: regular rate, rhythm, no edema Gastrointestinal: soft, other - Large lower abdomen surgical wound with some drainage, overweight Genitourinary: no CVA tenderness Musculoskeletal: normal range of motion, swelling - Lower extremity Neurologic: normal inspection, alert, responsive, speech normal Psychiatric: normal inspection, judgement/insight normal, mood/affect normal, anxious Skin: other - Erythema abdominal wall erythema abdominal wall with drainage Microbiology Date/Time Source Procedure Growth Status 03/03/19 17:35 Nasal Nares Left MRSA Culture - Final Staphylococcus Aureus - Mrsa Complete 03/04/19 00:00 Abdomen Gram Stain - Final Resulted 03/04/19 00:00 Wound Culture - Preliminary Staphylococcus Aureus Gram Negative Bacillus 1 Resulted Laboratory Tests Test 03/05/19 04:19 White Blood Count 10.0 K/UL (4.8-10.8) Red Blood Count 3.18 M/UL (4.70-6.10) L Hemoglobin 8.9 G/DL (14.2-18.0) L Hematocrit 28.4 % (42.0-52.0) L Mean Corpuscular Volume 89 FL (80-99) Mean Corpuscular Hemoglobin 28.1 PG (27.0-31.0) Mean Corpuscular Hemoglobin Concent 31.5 G/DL (32.0-36.0) L Red Cell Distribution Width 13.9 % (11.6-14.8) Platelet Count 299 K/UL (150-450) Mean Platelet Volume 4.4 FL (6.5-10.1) L Neutrophils (%) (Auto) 66.4 % (45.0-75.0) Lymphocytes (%) (Auto) 21.9 % (20.0-45.0) Monocytes (%) (Auto) 7.8 % (1.0-10.0) Eosinophils (%) (Auto) 3.4 % (0.0-3.0) H Basophils (%) (Auto) 0.5 % (0.0-2.0) Sodium Level 136 MMOL/L (136-145) Potassium Level 4.3 MMOL/L (3.5-5.1) Chloride Level 100 MMOL/L (98-107) Carbon Dioxide Level 36 MMOL/L (21-32) H Anion Gap 0 mmol/L (5-15) L Blood Urea Nitrogen 17 mg/dL (7-18) Creatinine 0.9 MG/DL (0.55-1.30) Estimat Glomerular Filtration Rate > 60 mL/min (>60) Glucose Level 99 MG/DL (74-106) Calcium Level 8.9 MG/DL (8.5-10.1) Vancomycin Level Trough 7.8 ug/mL (5.0-12.0) Current Medications Medications (Trade) Dose Ordered Sig/Ulis Route PRN Reason Start Time Stop Time Status Last Admin Dose Admin Acetaminophen (Tylenol) 650 mg Q4H PRN ORAL fever 03/03/19 21:15 04/02/19 21:14 Albuterol/ Ipratropium (Albuterol/ Ipratropium) 3 ml Q4H PRN HHN Shortness of Breath 03/03/19 21:15 03/08/19 21:14 Amlodipine Besylate (Norvasc) 5 mg DAILY ORAL 03/04/19 09:00 04/03/19 08:59 03/05/19 09:10 Cefepime HCl 1 gm/ Dextrose 55 ml @ 110 mls/hr EVERY 8 HOURS IVPB 03/03/19 22:00 03/10/19 21:59 03/05/19 05:34 Duloxetine HCl (Cymbalta) 30 mg DAILY ORAL 03/04/19 09:00 04/03/19 08:59 03/05/19 09:10 Fentanyl (Duragesic) 1 patch EVERY 72 HOURS TDERMAL 03/04/19 14:00 03/11/19 13:59 03/04/19 13:58 Furosemide (Lasix) 10 mg Q8HR ORAL 03/03/19 22:00 04/02/19 21:59 Heparin Sodium (Porcine) (Heparin 5000 units/ml) 5,000 units EVERY 12 HOURS SUBQ 03/04/19 09:00 04/03/19 08:59 03/05/19 09:11 Hydromorphone HCl (Dilaudid) 2 mg Q3H PRN IVP Severe Pain (Pain Scale 7-10) 03/04/19 15:00 03/11/19 14:59 03/05/19 10:02 Levetiracetam (Keppra) 1,000 mg Q8HR ORAL 03/03/19 22:00 04/02/19 21:59 03/05/19 05:34 Miscellaneous Medication (fentaNYL Destruction) 1 ea Q72H MISC 03/07/19 13:59 04/06/19 13:58 Morphine Sulfate (Morphine Sulfate) 2 mg Q4H PRN IVP Moderate Pain (Pain Scale 4-6) 03/03/19 21:15 03/10/19 21:14 Naloxone HCl (Narcan) 0.1 mg PRN IV Sedation scale 3 or 4 03/04/19 13:00 04/03/19 12:59 Nitroglycerin (Ntg) 0.4 mg Q5M PRN SL Prn Chest Pain 03/03/19 21:15 04/02/19 21:14 Ondansetron HCl (Zofran) 4 mg Q6H PRN IVP Nausea & Vomiting 03/03/19 21:15 04/02/19 21:14 Polyethylene Glycol (Miralax) 17 gm DAILYPRN PRN ORAL Constipation 03/03/19 21:15 04/02/19 21:14 Temazepam (Restoril) 15 mg HSPRN PRN ORAL Insomnia 03/03/19 21:15 03/10/19 21:14 Vancomycin HCl (Vanco rx to dose) 1 ea DAILY PRN MISC Per rx protocol 03/03/19 20:45 04/02/19 20:44 Vancomycin HCl 1 gm/Dextrose 275 ml @ 183.708 mls/hr Q8H IVPB 03/05/19 06:00 03/10/19 05:59 03/05/19 06:35 Alexa Patterson M.D. Mar 05, 2019 12:50
[2019-03-05 16:00] VITALS: BP 112/60
[2019-03-05 20:00] VITALS: BP 112/65
[2019-03-06] VITALS: BP 117/64
[2019-03-06] MEDS: Vancomycin 1.25gm Premix q24h IVPB SCH ×3 (01:52→22:28)
[2019-03-06 04:31] VITALS: BP 125/63
[2019-03-06] MEDS: Cefepime HCl 1 GM in D5W 55 ML IVPB SCH (05:02)
[2019-03-06 06:00] LABS: BASOPHILS % (AUTO) 2.1 % (0.0-2.0); EOSINOPHILS % (AUTO) 2.6 % (0.0-3.0); HEMOGLOBIN 8.8 G/DL (14.2-18.0); LYMPHOCYTES % (AUTO) 27.7 % (20.0-45.0); MEAN CORPUSCULAR VOLUME 92 FL (80-99); MONOCYTES % (AUTO) 7.7 % (1.0-10.0); NEUTROPHILS % (AUTO) 59.9 % (45.0-75.0); PLATELET COUNT 278 K/UL (150-450); RED BLOOD COUNT 3.14 M/UL (4.70-6.10); RED CELL DISTRIBUTION WIDTH 14.7 % (11.6-14.8); WHITE BLOOD COUNT 9.7 K/UL (4.8-10.8)
[2019-03-06 06:32] LABS: ANION GAP 4 mmol/L (5-15); BLOOD UREA NITROGEN 16 mg/dL (7-18); CALCIUM 9.1 MG/DL (8.5-10.1); CARBON DIOXIDE 33 MMOL/L (21-32); CHLORIDE 99 MMOL/L (98-107); CREATININE 0.9 MG/DL (0.55-1.30); POTASSIUM 4.5 MMOL/L (3.5-5.1); SODIUM 136 MMOL/L (136-145)
[2019-03-06 08:00] VITALS: BP 127/68
[2019-03-06] MEDS: DULoxetine 30mg cap ORAL SCH (08:08)
[2019-03-06] MEDS: Heparin 5000 units/ml inj SUBQ SCH ×2 (08:13→20:29)
--- NOTE | 2019-03-06 08:56 | General Progress Note ---
Assessment/Plan Problem List: (1) Wound infection after surgery ICD Codes: T81.49XA - Infection following a procedure, other surgical site, initial encounter SNOMED: 17832106, 050617157 (2) Cellulitis ICD Codes: L03.90 - Cellulitis, unspecified SNOMED: 916533498 (3) COPD (chronic obstructive pulmonary disease) ICD Codes: J44.9 - Chronic obstructive pulmonary disease, unspecified SNOMED: 51525733 (4) Morbid obesity ICD Codes: E66.01 - Morbid (severe) obesity due to excess calories SNOMED: 450769070 (5) Abdominal pannus ICD Codes: E65 - Localized adiposity SNOMED: 1287377770290 (6) Peripheral edema ICD Codes: R60.9 - Edema, unspecified SNOMED: 323303227 (7) Abdominal wall cellulitis ICD Codes: L03.311 - Cellulitis of abdominal wall SNOMED: 27277540 Status: stable, progressing Assessment/Plan: o2 pulm tx wound care abx cbc bmp am Subjective Constitutional: Reports: weakness Allergies: Coded Allergies: ASPIRIN (Verified Allergy, Unknown, 07/14/18) KETOROLAC (Verified Allergy, Unknown, 07/14/18) PENICILLINS (Verified Allergy, Unknown, 12/23/18) tolerated Ancef on 08/2018 All Systems: reviewed and negative except above Subjective sleepy calm in bed Objective Last 24 Hour Vital Signs Date Time Temp Pulse Resp B/P (MAP) Pulse Ox O2 Delivery O2 Flow Rate FiO2 03/06/19 08:17 77 127/68 03/06/19 04:31 98.9 84 20 125/63 (83) 95 03/06/19 00:00 98.6 74 20 117/64 (81) 95 03/05/19 21:00 Room Air 03/05/19 20:20 94 Nasal Cannula 2.0 28 03/05/19 20:20 84 18 94 Nasal Cannula 2.0 28 03/05/19 20:00 98.5 78 20 112/65 (81) 95 03/05/19 16:00 98.4 79 20 112/60 (77) 94 03/05/19 12:00 97.9 66 16 110/77 (88) 96 03/05/19 09:10 75 128/74 Intake and Output 03/05/19 03/06/19 19:00 07:00 Intake Total 1080 ml 1130 ml Balance 1080 ml 1130 ml Intake Oral 1080 ml 480 ml Other 650 ml # Voids 6 2 # Bowel Movements 1 Laboratory Tests 03/06/19 05:20: White Blood Count 9.7, Red Blood Count 3.14L, Hemoglobin 8.8L, Hematocrit 29.0L , Mean Corpuscular Volume 92, Mean Corpuscular Hemoglobin 28.0, Mean Corpuscular Hemoglobin Concent 30.3L, Red Cell Distribution Width 14.7, Platelet Count 278, Mean Platelet Volume 3.7L, Neutrophils (%) (Auto) 59.9, Lymphocytes (%) (Auto) 27.7, Monocytes (%) (Auto) 7.7, Eosinophils (%) (Auto) 2.6, Basophils (%) (Auto) 2.1H, Sodium Level 136, Potassium Level 4.5, Chloride Level 99, Carbon Dioxide Level 33H, Anion Gap 4L, Blood Urea Nitrogen 16, Creatinine 0.9, Estimat Glomerular Filtration Rate > 60, Glucose Level 77, Calcium Level 9.1 Height (Feet): 6 Height (Inches): 0.00 Weight (Pounds): 450 General Appearance: lethargic EENT: normal ENT inspection Neck: normal alignment Cardiovascular: normal peripheral pulses, normal rate, regular rhythm Respiratory/Chest: chest wall non-tender, lungs clear, normal breath sounds Abdomen: non tender, soft, distended Extremities: normal inspection Edema: 1+ Arm (L), 1+ Arm (R), 1+ Leg (L), 1+ Leg (R), 1+ Pedal (L), 1+ Pedal ( R), 1+ Generalized Edema: trace edema Neurologic: motor weakness Skin: normal pigmentation, warm/dry Ernesto Nicole DO Mar 06, 2019 08:56
--- NOTE | 2019-03-06 09:38 | Pulmonology Progress Note ---
Assessment/Plan Problems: (1) Cellulitis (2) Status post panniculectomy (3) COPD (chronic obstructive pulmonary disease) (4) Lumbar spondylosis (5) ADALBERTO (obstructive sleep apnea) (6) Abdominal pannus (7) Seizures (8) Cerebrovascular accident (9) Peripheral edema Assessment/Plan cultures form the abdominal wound site iv abx' respiratory treatment titrate fio2 to sat of 92% bipap prn Subjective Allergies: Coded Allergies: ASPIRIN (Verified Allergy, Unknown, 07/14/18) KETOROLAC (Verified Allergy, Unknown, 07/14/18) PENICILLINS (Verified Allergy, Unknown, 12/23/18) tolerated Ancef on 08/2018 Objective Last 24 Hour Vital Signs Date Time Temp Pulse Resp B/P (MAP) Pulse Ox O2 Delivery O2 Flow Rate FiO2 03/06/19 08:17 77 127/68 03/06/19 04:31 98.9 84 20 125/63 (83) 95 03/06/19 00:00 98.6 74 20 117/64 (81) 95 03/05/19 21:00 Room Air 03/05/19 20:20 94 Nasal Cannula 2.0 28 03/05/19 20:20 84 18 94 Nasal Cannula 2.0 28 03/05/19 20:00 98.5 78 20 112/65 (81) 95 03/05/19 16:00 98.4 79 20 112/60 (77) 94 03/05/19 12:00 97.9 66 16 110/77 (88) 96 Intake and Output 03/05/19 03/06/19 19:00 07:00 Intake Total 1080 ml 1130 ml Balance 1080 ml 1130 ml Intake Oral 1080 ml 480 ml Other 650 ml # Voids 6 2 # Bowel Movements 1 Microbiology Date/Time Source Procedure Growth Status 03/05/19 05:00 Wound Gram Stain - Final Resulted 03/05/19 05:00 Wound Culture - Preliminary Staphylococcus Aureus Diphtheroids Resulted 03/03/19 17:35 Nasal Nares Left MRSA Culture - Final Staphylococcus Aureus - Mrsa Complete 03/04/19 00:00 Abdomen Gram Stain - Final Complete 03/04/19 00:00 Wound Culture - Final Staphylococcus Aureus - Mrsa Klebsiella Pneumoniae Complete Laboratory Tests 03/06/19 05:20: White Blood Count 9.7, Red Blood Count 3.14L, Hemoglobin 8.8L, Hematocrit 29.0L , Mean Corpuscular Volume 92, Mean Corpuscular Hemoglobin 28.0, Mean Corpuscular Hemoglobin Concent 30.3L, Red Cell Distribution Width 14.7, Platelet Count 278, Mean Platelet Volume 3.7L, Neutrophils (%) (Auto) 59.9, Lymphocytes (%) (Auto) 27.7, Monocytes (%) (Auto) 7.7, Eosinophils (%) (Auto) 2.6, Basophils (%) (Auto) 2.1H, Sodium Level 136, Potassium Level 4.5, Chloride Level 99, Carbon Dioxide Level 33H, Anion Gap 4L, Blood Urea Nitrogen 16, Creatinine 0.9, Estimat Glomerular Filtration Rate > 60, Glucose Level 77, Calcium Level 9.1 Current Medications Medications (Trade) Dose Ordered Sig/Luis Route PRN Reason Start Time Stop Time Status Last Admin Dose Admin Acetaminophen (Tylenol) 650 mg Q4H PRN ORAL fever 03/03/19 21:15 04/02/19 21:14 Albuterol/ Ipratropium (Albuterol/ Ipratropium) 3 ml Q4H PRN HHN Shortness of Breath 03/03/19 21:15 03/08/19 21:14 Amlodipine Besylate (Norvasc) 5 mg DAILY ORAL 03/04/19 09:00 04/03/19 08:59 03/06/19 08:17 Cefepime HCl 1 gm/ Dextrose 55 ml @ 110 mls/hr EVERY 8 HOURS IVPB 03/03/19 22:00 03/10/19 21:59 03/06/19 05:02 Duloxetine HCl (Cymbalta) 30 mg DAILY ORAL 03/04/19 09:00 04/03/19 08:59 03/06/19 08:08 Fentanyl (Duragesic) 1 patch EVERY 72 HOURS TDERMAL 03/04/19 14:00 03/11/19 13:59 03/04/19 13:58 Furosemide (Lasix) 10 mg Q8HR ORAL 03/03/19 22:00 04/02/19 21:59 Heparin Sodium (Porcine) (Heparin 5000 units/ml) 5,000 units EVERY 12 HOURS SUBQ 03/04/19 09:00 04/03/19 08:59 03/06/19 08:13 Hydromorphone HCl (Dilaudid) 2 mg Q3H PRN IVP Severe Pain (Pain Scale 7-10) 03/04/19 15:00 03/11/19 14:59 03/06/19 08:04 Levetiracetam (Keppra) 1,000 mg Q8HR ORAL 03/03/19 22:00 04/02/19 21:59 03/06/19 05:02 Miscellaneous Medication (fentaNYL Destruction) 1 ea Q72H MISC 03/07/19 13:59 04/06/19 13:58 Morphine Sulfate (Morphine Sulfate) 2 mg Q4H PRN IVP Moderate Pain (Pain Scale 4-6) 03/03/19 21:15 03/10/19 21:14 Naloxone HCl (Narcan) 0.1 mg PRN IV Sedation scale 3 or 4 03/04/19 13:00 04/03/19 12:59 Nitroglycerin (Ntg) 0.4 mg Q5M PRN SL Prn Chest Pain 03/03/19 21:15 04/02/19 21:14 Ondansetron HCl (Zofran) 4 mg Q6H PRN IVP Nausea & Vomiting 03/03/19 21:15 04/02/19 21:14 Polyethylene Glycol (Miralax) 17 gm DAILYPRN PRN ORAL Constipation 03/03/19 21:15 04/02/19 21:14 Temazepam (Restoril) 15 mg HSPRN PRN ORAL Insomnia 03/03/19 21:15 03/10/19 21:14 Vancomycin HCl (Vanco rx to dose) 1 ea DAILY PRN MISC Per rx protocol 03/03/19 20:45 04/02/19 20:44 Vancomycin HCl/ Dextrose 275 ml @ 183.333 mls/hr Q12H IVPB 03/05/19 23:00 03/10/19 22:59 03/06/19 01:52 Bill Dixon MD Mar 06, 2019 09:38
--- NOTE | 2019-03-06 11:57 | Infectious Diseases Prog Note ---
Assessment/Plan Assessment/Plan Assessment: Surgical site infection -03/05 wound cx : S.aureus, diptheroids -03/04 wound cx S. aureus (S tetracycline, bactrim, Vancomycin),K. pna (R amp; otherwise S) 02/01 SP Panniculectomy Afebrile No leukocytosis Recent hx of B/l Leg cellulitis and panniculitis 12/2018 - in the setting of chronic venous stasis, s/p Rx Recent seizure episode 11/2018 -had L side weakness and spasticity CVA HTN bipolar disorder w/ psychotic features tobacco abuse anxiety disorder chronic pain CHF seizure disorder COPD morbid obesity Dm2 HTN SNF resident Plan: -Continue IV Vancomycin #11/04- for MRSA SSI -Switch Cefepime #11/04- to Ceftriaxone for K.pna SSI --expect switching to PO upon discharge -02/08 SP IV Vancomycin #8 -02/04 SP Aztreonam #4 -/ SP Fluconzole #5 - 01/07/19 SP IV Dapto d# 14 - 01/06/19 S/P Levofloxacin #7 - 12/25/18 sp Bactrim #4 and IV Ancef #3 for cellulitis -f/u cx -Monitor CBC/CMP, temperatures -wound cx -Sx f/u: -wound care per surgical team Thank you for this consultation. Will continue to follow along with you. Discussed with RN Subjective Allergies: Coded Allergies: ASPIRIN (Verified Allergy, Unknown, 07/14/18) KETOROLAC (Verified Allergy, Unknown, 07/14/18) PENICILLINS (Verified Allergy, Unknown, 12/23/18) tolerated Ancef on 08/2018 Subjective afebrile no leukocytosis Objective Vital Signs Last 24 Hour Vital Signs Date Time Temp Pulse Resp B/P (MAP) Pulse Ox O2 Delivery O2 Flow Rate FiO2 03/06/19 08:43 93 Nasal Cannula 2.0 28 03/06/19 08:43 80 18 93 Nasal Cannula 2.0 28 03/06/19 08:17 77 127/68 03/06/19 04:31 98.9 84 20 125/63 (83) 95 03/06/19 00:00 98.6 74 20 117/64 (81) 95 03/05/19 21:00 Room Air 03/05/19 20:20 94 Nasal Cannula 2.0 28 03/05/19 20:20 84 18 94 Nasal Cannula 2.0 28 03/05/19 20:00 98.5 78 20 112/65 (81) 95 03/05/19 16:00 98.4 79 20 112/60 (77) 94 03/05/19 12:00 97.9 66 16 110/77 (88) 96 Height (Feet): 6 Height (Inches): 0.00 Weight (Pounds): 450 Objective General Appearance: alert, moderate distress, obese Head: atraumatic Eyes: bilateral eye normal inspection ENT: normal ENT inspection, hearing grossly normal, normal voice Neck: normal inspection, full range of motion, supple, no bony tend Respiratory: normal inspection, lungs clear, normal breath sounds, no respiratory distress, no retraction, no wheezing Cardiovascular #1: regular rate, rhythm, no edema Gastrointestinal: soft, other - Large lower abdomen surgical wound with some drainage, overweight Genitourinary: no CVA tenderness Musculoskeletal: normal range of motion, swelling - Lower extremity Neurologic: normal inspection, alert, responsive, speech normal Psychiatric: normal inspection, judgement/insight normal, mood/affect normal, anxious Skin: other - Erythema abdominal wall erythema abdominal wall with drainage Microbiology Date/Time Source Procedure Growth Status 03/05/19 05:00 Wound Gram Stain - Final Resulted 03/05/19 05:00 Wound Culture - Preliminary Staphylococcus Aureus Diphtheroids Resulted 03/03/19 17:35 Nasal Nares Left MRSA Culture - Final Staphylococcus Aureus - Mrsa Complete 03/04/19 00:00 Abdomen Gram Stain - Final Complete 03/04/19 00:00 Wound Culture - Final Staphylococcus Aureus - Mrsa Klebsiella Pneumoniae Complete Laboratory Tests Test 03/06/19 05:20 White Blood Count 9.7 K/UL (4.8-10.8) Red Blood Count 3.14 M/UL (4.70-6.10) L Hemoglobin 8.8 G/DL (14.2-18.0) L Hematocrit 29.0 % (42.0-52.0) L Mean Corpuscular Volume 92 FL (80-99) Mean Corpuscular Hemoglobin 28.0 PG (27.0-31.0) Mean Corpuscular Hemoglobin Concent 30.3 G/DL (32.0-36.0) L Red Cell Distribution Width 14.7 % (11.6-14.8) Platelet Count 278 K/UL (150-450) Mean Platelet Volume 3.7 FL (6.5-10.1) L Neutrophils (%) (Auto) 59.9 % (45.0-75.0) Lymphocytes (%) (Auto) 27.7 % (20.0-45.0) Monocytes (%) (Auto) 7.7 % (1.0-10.0) Eosinophils (%) (Auto) 2.6 % (0.0-3.0) Basophils (%) (Auto) 2.1 % (0.0-2.0) H Sodium Level 136 MMOL/L (136-145) Potassium Level 4.5 MMOL/L (3.5-5.1) Chloride Level 99 MMOL/L (98-107) Carbon Dioxide Level 33 MMOL/L (21-32) H Anion Gap 4 mmol/L (5-15) L Blood Urea Nitrogen 16 mg/dL (7-18) Creatinine 0.9 MG/DL (0.55-1.30) Estimat Glomerular Filtration Rate > 60 mL/min (>60) Glucose Level 77 MG/DL (74-106) Calcium Level 9.1 MG/DL (8.5-10.1) Current Medications Medications (Trade) Dose Ordered Sig/Luis Route PRN Reason Start Time Stop Time Status Last Admin Dose Admin Acetaminophen (Tylenol) 650 mg Q4H PRN ORAL fever 03/03/19 21:15 04/02/19 21:14 Albuterol/ Ipratropium (Albuterol/ Ipratropium) 3 ml Q4H PRN HHN Shortness of Breath 03/03/19 21:15 03/08/19 21:14 Amlodipine Besylate (Norvasc) 5 mg DAILY ORAL 03/04/19 09:00 04/03/19 08:59 03/06/19 08:17 Cefepime HCl 1 gm/ Dextrose 55 ml @ 110 mls/hr EVERY 8 HOURS IVPB 03/03/19 22:00 03/10/19 21:59 03/06/19 05:02 Duloxetine HCl (Cymbalta) 30 mg DAILY ORAL 03/04/19 09:00 04/03/19 08:59 03/06/19 08:08 Fentanyl (Duragesic) 1 patch EVERY 72 HOURS TDERMAL 03/04/19 14:00 03/11/19 13:59 03/04/19 13:58 Furosemide (Lasix) 10 mg Q8HR ORAL 03/03/19 22:00 04/02/19 21:59 Heparin Sodium (Porcine) (Heparin 5000 units/ml) 5,000 units EVERY 12 HOURS SUBQ 03/04/19 09:00 04/03/19 08:59 03/06/19 08:13 Hydromorphone HCl (Dilaudid) 2 mg Q3H PRN IVP Severe Pain (Pain Scale 7-10) 03/04/19 15:00 03/11/19 14:59 03/06/19 11:16 Levetiracetam (Keppra) 1,000 mg Q8HR ORAL 03/03/19 22:00 04/02/19 21:59 03/06/19 05:02 Miscellaneous Medication (fentaNYL Destruction) 1 ea Q72H MISC 03/07/19 13:59 04/06/19 13:58 Morphine Sulfate (Morphine Sulfate) 2 mg Q4H PRN IVP Moderate Pain (Pain Scale 4-6) 03/03/19 21:15 03/10/19 21:14 Naloxone HCl (Narcan) 0.1 mg PRN IV Sedation scale 3 or 4 03/04/19 13:00 04/03/19 12:59 Nitroglycerin (Ntg) 0.4 mg Q5M PRN SL Prn Chest Pain 03/03/19 21:15 04/02/19 21:14 Ondansetron HCl (Zofran) 4 mg Q6H PRN IVP Nausea & Vomiting 03/03/19 21:15 04/02/19 21:14 Polyethylene Glycol (Miralax) 17 gm DAILYPRN PRN ORAL Constipation 03/03/19 21:15 04/02/19 21:14 Temazepam (Restoril) 15 mg HSPRN PRN ORAL Insomnia 03/03/19 21:15 03/10/19 21:14 Vancomycin HCl (Vanco rx to dose) 1 ea DAILY PRN MISC Per rx protocol 03/03/19 20:45 04/02/19 20:44 Vancomycin HCl/ Dextrose 275 ml @ 183.333 mls/hr Q12H IVPB 03/05/19 23:00 03/10/19 22:59 03/06/19 11:32 Alexa Patterson M.D. Mar 06, 2019 11:57
[2019-03-06 12:00] VITALS: BP 112/66
[2019-03-06] MEDS: cefTRIAXone 2 GM in D5W 55 ML IVPB SCH (14:23)
[2019-03-06 16:00] VITALS: BP 120/78
[2019-03-06 20:00] VITALS: BP 129/78
[2019-03-07] VITALS: BP 134/74
[2019-03-07 04:00] VITALS: BP 140/73
[2019-03-07 08:00] VITALS: BP 127/72
[2019-03-07] MEDS: DULoxetine 30mg cap ORAL SCH (08:41)
--- NOTE | 2019-03-07 08:46 | General Progress Note ---
Assessment/Plan Problem List: (1) Wound infection after surgery ICD Codes: T81.49XA - Infection following a procedure, other surgical site, initial encounter SNOMED: 57574775, 105223487 (2) Cellulitis ICD Codes: L03.90 - Cellulitis, unspecified SNOMED: 547578545 (3) COPD (chronic obstructive pulmonary disease) ICD Codes: J44.9 - Chronic obstructive pulmonary disease, unspecified SNOMED: 21043163 (4) Morbid obesity ICD Codes: E66.01 - Morbid (severe) obesity due to excess calories SNOMED: 841997937 (5) Abdominal pannus ICD Codes: E65 - Localized adiposity SNOMED: 6920707844435 (6) Peripheral edema ICD Codes: R60.9 - Edema, unspecified SNOMED: 203175925 (7) Abdominal wall cellulitis ICD Codes: L03.311 - Cellulitis of abdominal wall SNOMED: 35190662 Status: stable, progressing Assessment/Plan: o2 pulm tx wound care abx cbc bmp am Subjective Constitutional: Reports: weakness Allergies: Coded Allergies: ASPIRIN (Verified Allergy, Unknown, 07/14/18) KETOROLAC (Verified Allergy, Unknown, 07/14/18) PENICILLINS (Verified Allergy, Unknown, 12/23/18) tolerated Ancef on 08/2018 All Systems: reviewed and negative except above Subjective sl gen pain Objective Last 24 Hour Vital Signs Date Time Temp Pulse Resp B/P (MAP) Pulse Ox O2 Delivery O2 Flow Rate FiO2 03/07/19 08:10 93 Room Air 21 03/07/19 08:10 81 17 93 Room Air 03/07/19 08:00 97.8 83 20 127/72 (90) 94 03/07/19 04:00 98.8 79 20 140/73 (95) 95 03/07/19 00:00 99.6 75 20 134/74 (94) 95 03/06/19 21:00 Room Air 03/06/19 20:00 98.9 80 21 129/78 (95) 95 03/06/19 18:45 78 18 94 Room Air 21 03/06/19 18:45 94 Room Air 21 03/06/19 16:00 98.2 76 16 120/78 (92) 95 03/06/19 12:00 99.1 78 17 112/66 (81) 92 03/06/19 09:00 Room Air Intake and Output 03/06/19 03/07/19 19:00 07:00 Intake Total 476.666 ml 1496.666 ml Balance 476.666 ml 1496.666 ml Intake Oral 480 ml IV Total 476.666 ml 366.666 ml Other 650 ml # Voids 5 2 # Bowel Movements 1 Height (Feet): 6 Height (Inches): 0.00 Weight (Pounds): 450 General Appearance: alert EENT: normal ENT inspection Neck: normal alignment Cardiovascular: normal peripheral pulses, normal rate, regular rhythm Respiratory/Chest: chest wall non-tender, lungs clear, normal breath sounds Abdomen: normal bowel sounds, non tender, soft Extremities: normal inspection Edema: 1+ Arm (L), 1+ Arm (R), 1+ Leg (L), 1+ Leg (R), 1+ Pedal (L), 1+ Pedal ( R), 1+ Generalized Edema: trace edema Neurologic: responsive, motor weakness Skin: normal pigmentation, warm/dry Ernesto Nicole DO Mar 07, 2019 08:46
[2019-03-07] MEDS: Heparin 5000 units/ml inj SUBQ SCH ×2 (08:47→20:52)
[2019-03-07] MEDS: Vancomycin 1.25gm Premix q24h IVPB SCH (11:07)
[2019-03-07 12:00] VITALS: BP 134/78
[2019-03-07] MEDS: fentaNYL Destruction MISC SCH (13:59)
[2019-03-07] MEDS: cefTRIAXone 2 GM in D5W 55 ML IVPB SCH (14:48)
[2019-03-07 16:00] VITALS: BP 149/88
--- NOTE | 2019-03-07 19:46 | Pulmonology Progress Note ---
Assessment/Plan Problems: (1) Cellulitis (2) Status post panniculectomy (3) COPD (chronic obstructive pulmonary disease) (4) Lumbar spondylosis (5) ADALBERTO (obstructive sleep apnea) (6) Abdominal pannus (7) Seizures (8) Cerebrovascular accident (9) Peripheral edema Assessment/Plan doing better iv abx' respiratory treatment titrate fio2 to sat of 92% bipap prn Subjective ROS Limited/Unobtainable: No Constitutional: Reports: no symptoms HEENT: Repors: no symptoms Respiratory: Reports: no symptoms Allergies: Coded Allergies: ASPIRIN (Verified Allergy, Unknown, 07/14/18) KETOROLAC (Verified Allergy, Unknown, 07/14/18) PENICILLINS (Verified Allergy, Unknown, 12/23/18) tolerated Ancef on 08/2018 Objective Last 24 Hour Vital Signs Date Time Temp Pulse Resp B/P (MAP) Pulse Ox O2 Delivery O2 Flow Rate FiO2 03/07/19 16:00 97.5 89 20 149/88 (108) 94 03/07/19 12:00 97.2 79 18 134/78 (96) 97 03/07/19 09:00 Room Air 03/07/19 08:42 81 127/72 03/07/19 08:10 93 Room Air 21 03/07/19 08:10 81 17 93 Room Air 21 03/07/19 08:00 97.8 83 20 127/72 (90) 94 03/07/19 04:00 98.8 79 20 140/73 (95) 95 03/07/19 00:00 99.6 75 20 134/74 (94) 95 03/06/19 21:00 Room Air 03/06/19 20:00 98.9 80 21 129/78 (95) 95 Intake and Output 03/06/19 03/07/19 18:59 06:59 Intake Total 476.666 ml 1496.666 ml Balance 476.666 ml 1496.666 ml Intake Oral 480 ml IV Total 476.666 ml 366.666 ml Other 650 ml # Voids 5 2 # Bowel Movements 1 General Appearance: WD/WN HEENT: anicteric Respiratory/Chest: chest wall non-tender, lungs clear, normal breath sounds Cardiovascular: normal peripheral pulses, normal rate, regularly irregular Abdomen: normal bowel sounds, soft, non tender, no scars Extremities: no cyanosis Skin: no rash Microbiology Date/Time Source Procedure Growth Status 03/05/19 05:00 Wound Gram Stain - Final Resulted 03/05/19 05:00 Wound Culture - Preliminary Staphylococcus Aureus Gram Negative Yaron Diphtheroids Resulted Current Medications Medications (Trade) Dose Ordered Sig/Luis Route PRN Reason Start Time Stop Time Status Last Admin Dose Admin Acetaminophen (Tylenol) 650 mg Q4H PRN ORAL fever 03/03/19 21:15 04/02/19 21:14 Albuterol/ Ipratropium (Albuterol/ Ipratropium) 3 ml Q4H PRN HHN Shortness of Breath 03/03/19 21:15 03/08/19 21:14 Amlodipine Besylate (Norvasc) 5 mg DAILY ORAL 03/04/19 09:00 04/03/19 08:59 03/07/19 08:42 Ceftriaxone Sodium 2 gm/ Dextrose 55 ml @ 110 mls/hr Q24H IVPB 03/06/19 14:00 03/13/19 13:59 03/07/19 14:48 Duloxetine HCl (Cymbalta) 30 mg DAILY ORAL 03/04/19 09:00 04/03/19 08:59 03/07/19 08:41 Fentanyl (Duragesic) 1 patch EVERY 72 HOURS TDERMAL 03/04/19 14:00 03/11/19 13:59 03/07/19 14:50 Furosemide (Lasix) 10 mg Q8HR ORAL 03/03/19 22:00 04/02/19 21:59 Heparin Sodium (Porcine) (Heparin 5000 units/ml) 5,000 units EVERY 12 HOURS SUBQ 03/04/19 09:00 04/03/19 08:59 03/07/19 08:47 Hydromorphone HCl (Dilaudid) 3 mg Q3H PRN IVP Severe Pain (Pain Scale 7-10) 03/06/19 13:15 03/13/19 13:14 03/07/19 17:56 Levetiracetam (Keppra) 1,000 mg Q8HR ORAL 03/03/19 22:00 04/02/19 21:59 03/07/19 14:49 Miscellaneous Medication (fentaNYL Destruction) 1 ea Q72H MISC 03/07/19 13:59 04/06/19 13:58 03/07/19 13:59 Morphine Sulfate (Morphine Sulfate) 2 mg Q4H PRN IVP Moderate Pain (Pain Scale 4-6) 03/03/19 21:15 03/10/19 21:14 Naloxone HCl (Narcan) 0.1 mg PRN IV Sedation scale 3 or 4 03/04/19 13:00 04/03/19 12:59 Nitroglycerin (Ntg) 0.4 mg Q5M PRN SL Prn Chest Pain 03/03/19 21:15 04/02/19 21:14 Ondansetron HCl (Zofran) 4 mg Q6H PRN IVP Nausea & Vomiting 03/03/19 21:15 04/02/19 21:14 Polyethylene Glycol (Miralax) 17 gm DAILYPRN PRN ORAL Constipation 03/03/19 21:15 04/02/19 21:14 Temazepam (Restoril) 15 mg HSPRN PRN ORAL Insomnia 03/03/19 21:15 03/10/19 21:14 Vancomycin HCl (Vanco rx to dose) 1 ea DAILY PRN MISC Per rx protocol 03/03/19 20:45 04/02/19 20:44 Vancomycin HCl/ Dextrose 275 ml @ 183.333 mls/hr Q12H IVPB 03/05/19 23:00 03/10/19 22:59 03/07/19 11:07 Bill Dixon MD Mar 07, 2019 19:46
[2019-03-07 20:00] VITALS: BP 166/82
[2019-03-08] VITALS: BP 150/79
[2019-03-08] MEDS: Vancomycin 1.5gm Premix q24h IVPB SCH ×3 (01:02→17:35)
[2019-03-08 04:00] VITALS: BP 132/70
[2019-03-08 08:00] VITALS: BP 134/79
[2019-03-08] MEDS: DULoxetine 30mg cap ORAL SCH (08:53)
[2019-03-08] MEDS: Heparin 5000 units/ml inj SUBQ SCH ×2 (08:54→20:51)
--- NOTE | 2019-03-08 08:57 | General Progress Note ---
Assessment/Plan Problem List: (1) Wound infection after surgery ICD Codes: T81.49XA - Infection following a procedure, other surgical site, initial encounter SNOMED: 71707503, 184486642 (2) Cellulitis ICD Codes: L03.90 - Cellulitis, unspecified SNOMED: 737218059 (3) COPD (chronic obstructive pulmonary disease) ICD Codes: J44.9 - Chronic obstructive pulmonary disease, unspecified SNOMED: 08821226 (4) Morbid obesity ICD Codes: E66.01 - Morbid (severe) obesity due to excess calories SNOMED: 408818762 (5) Abdominal pannus ICD Codes: E65 - Localized adiposity SNOMED: 1108289864366 (6) Peripheral edema ICD Codes: R60.9 - Edema, unspecified SNOMED: 551822133 (7) Abdominal wall cellulitis ICD Codes: L03.311 - Cellulitis of abdominal wall SNOMED: 26844741 Status: stable, progressing Assessment/Plan: o2 pulm tx wound care abx cbc bmp am Subjective Constitutional: Reports: weakness Allergies: Coded Allergies: ASPIRIN (Verified Allergy, Unknown, 07/14/18) KETOROLAC (Verified Allergy, Unknown, 07/14/18) PENICILLINS (Verified Allergy, Unknown, 12/23/18) tolerated Ancef on 08/2018 All Systems: reviewed and negative except above Subjective sl gen pain Objective Last 24 Hour Vital Signs Date Time Temp Pulse Resp B/P (MAP) Pulse Ox O2 Delivery O2 Flow Rate FiO2 03/08/19 08:53 82 134/79 03/08/19 08:00 98.7 82 20 134/79 (97) 94 03/08/19 04:00 96.8 89 22 132/70 (90) 95 03/08/19 00:00 97.8 88 21 150/79 (102) 95 03/07/19 21:00 Room Air 03/07/19 20:55 77 18 94 Room Air 21 03/07/19 20:55 94 Room Air 21 03/07/19 20:00 97.7 80 20 166/82 (110) 95 03/07/19 16:00 97.5 89 20 149/88 (108) 94 03/07/19 12:00 97.2 79 18 134/78 (96) 97 03/07/19 09:00 Room Air Intake and Output 03/07/19 03/08/19 19:00 07:00 Intake Total 1206.666 ml 1765.0 ml Balance 1206.666 ml 1765.0 ml Intake Oral 840 ml 840 ml IV Total 366.666 ml 275.0 ml Other 650 ml # Voids 3 3 # Bowel Movements 1 1 Laboratory Tests 03/07/19 23:20: Vancomycin Level Trough 7.5 Height (Feet): 6 Height (Inches): 0.00 Weight (Pounds): 450 General Appearance: lethargic EENT: normal ENT inspection Neck: normal alignment Cardiovascular: normal peripheral pulses, normal rate, regular rhythm Respiratory/Chest: chest wall non-tender, lungs clear, normal breath sounds Abdomen: non tender, soft, distended Extremities: normal inspection Edema: 1+ Arm (L), 1+ Arm (R), 1+ Leg (L), 1+ Leg (R), 1+ Pedal (L), 1+ Pedal ( R), 1+ Generalized Edema: trace edema Neurologic: responsive, motor weakness Skin: normal pigmentation, warm/dry Ernesto Nicole DO Mar 08, 2019 08:57
[2019-03-08 12:00] VITALS: BP 149/83
--- NOTE | 2019-03-08 13:04 | Plastic Surgery Progress Note ---
Plastic Surgery-Progress Note Subjective Additional Comments Follow up evaluation on patient who underwent panniculectomy on 02/01/19. He was readmitted over 4 weeks later with cellulitis and incision dehisence over several areas. His cultures are + for MRSA and klebsiella and he is being managed by ID with IV abx. He is receiving dressing changes. He has less pain and drainage since this admission. No elevated temps or wbc. Objective Last 24 Hour Vital Signs Date Time Temp Pulse Resp B/P (MAP) Pulse Ox O2 Delivery O2 Flow Rate FiO2 03/08/19 12:00 97.9 77 20 149/83 (105) 96 03/08/19 09:00 Room Air 03/08/19 08:53 82 134/79 03/08/19 08:00 98.7 82 20 134/79 (97) 94 03/08/19 04:00 96.8 89 22 132/70 (90) 95 03/08/19 00:00 97.8 88 21 150/79 (102) 95 03/07/19 21:00 Room Air 03/07/19 20:55 77 18 94 Room Air 21 03/07/19 20:55 94 Room Air 21 03/07/19 20:00 97.7 80 20 166/82 (110) 95 03/07/19 16:00 97.5 89 20 149/88 (108) 94 I&O Intake and Output 03/07/19 03/08/19 19:00 07:00 Intake Total 1206.666 ml 1765.0 ml Balance 1206.666 ml 1765.0 ml Intake Oral 840 ml 840 ml IV Total 366.666 ml 275.0 ml Other 650 ml # Voids 3 3 # Bowel Movements 1 1 Abdomen: soft Skin Exam: other - Left lateral incision dehiscence with wounds appearing more granular. Some fatty tissue visible but no slough, purulent drainage. Erythema over the skin is settling. No odor. Right central dehiscence with some devitalized fat and sligh undermining but otherwise appears stable. No erythema on any other part of the abdominal skin. Tenderness is noticeably decreased. Laboratory Tests Test 03/07/19 23:20 Vancomycin Level Trough 7.5 ug/mL (5.0-12.0) Plan Additional Comments At this time, continue IV abx per ID. If needs to be on antibx for longer period of time may need to consider picc line. Continue daily dressing changes with alginate over the open areas to reduce the amount of moisture to the wound and periwound skin. No surgical intervention at this time. Reggie Roberts MD Mar 08, 2019 13:04
--- NOTE | 2019-03-08 13:38 | Pulmonology Progress Note ---
Assessment/Plan Problems: (1) Cellulitis (2) Status post panniculectomy (3) COPD (chronic obstructive pulmonary disease) (4) Lumbar spondylosis (5) ADALBERTO (obstructive sleep apnea) (6) Abdominal pannus (7) Seizures (8) Cerebrovascular accident (9) Peripheral edema Assessment/Plan doing better pain is better controlled iv abx' respiratory treatment titrate fio2 to sat of 92% bipap prn Subjective ROS Limited/Unobtainable: No Constitutional: Reports: no symptoms HEENT: Repors: no symptoms Allergies: Coded Allergies: ASPIRIN (Verified Allergy, Unknown, 07/14/18) KETOROLAC (Verified Allergy, Unknown, 07/14/18) PENICILLINS (Verified Allergy, Unknown, 12/23/18) tolerated Ancef on 08/2018 Objective Last 24 Hour Vital Signs Date Time Temp Pulse Resp B/P (MAP) Pulse Ox O2 Delivery O2 Flow Rate FiO2 03/08/19 12:00 97.9 77 20 149/83 (105) 96 03/08/19 09:00 Room Air 03/08/19 08:53 82 134/79 03/08/19 08:00 98.7 82 20 134/79 (97) 94 03/08/19 04:00 96.8 89 22 132/70 (90) 95 03/08/19 00:00 97.8 88 21 150/79 (102) 95 03/07/19 21:00 Room Air 03/07/19 20:55 77 18 94 Room Air 21 03/07/19 20:55 94 Room Air 21 03/07/19 20:00 97.7 80 20 166/82 (110) 95 03/07/19 16:00 97.5 89 20 149/88 (108) 94 Intake and Output 03/07/19 03/08/19 19:00 07:00 Intake Total 1206.666 ml 1765.0 ml Balance 1206.666 ml 1765.0 ml Intake Oral 840 ml 840 ml IV Total 366.666 ml 275.0 ml Other 650 ml # Voids 3 3 # Bowel Movements 1 1 General Appearance: WD/WN, no acute distress HEENT: atraumatic Respiratory/Chest: chest wall tender Cardiovascular: normal rate, no gallop/murmur Abdomen: normal bowel sounds, soft, non tender Genitourinary: normal external genitalia Extremities: no clubbing Laboratory Tests 03/07/19 23:20: Vancomycin Level Trough 7.5 Current Medications Medications (Trade) Dose Ordered Sig/Luis Route PRN Reason Start Time Stop Time Status Last Admin Dose Admin Acetaminophen (Tylenol) 650 mg Q4H PRN ORAL fever 03/03/19 21:15 04/02/19 21:14 Albuterol/ Ipratropium (Albuterol/ Ipratropium) 3 ml Q4H PRN HHN Shortness of Breath 03/03/19 21:15 03/08/19 21:14 Amlodipine Besylate (Norvasc) 5 mg DAILY ORAL 03/04/19 09:00 04/03/19 08:59 03/08/19 08:53 Ceftriaxone Sodium 2 gm/ Dextrose 55 ml @ 110 mls/hr Q24H IVPB 03/06/19 14:00 03/13/19 13:59 03/07/19 14:48 Duloxetine HCl (Cymbalta) 30 mg DAILY ORAL 03/04/19 09:00 04/03/19 08:59 03/08/19 08:53 Fentanyl (Duragesic) 1 patch EVERY 72 HOURS TDERMAL 03/04/19 14:00 03/11/19 13:59 03/07/19 14:50 Furosemide (Lasix) 10 mg Q8HR ORAL 03/03/19 22:00 04/02/19 21:59 03/08/19 05:16 Heparin Sodium (Porcine) (Heparin 5000 units/ml) 5,000 units EVERY 12 HOURS SUBQ 03/04/19 09:00 04/03/19 08:59 03/08/19 08:54 Hydromorphone HCl (Dilaudid) 3 mg Q3H PRN IVP Severe Pain (Pain Scale 7-10) 03/06/19 13:15 03/13/19 13:14 03/08/19 11:29 Levetiracetam (Keppra) 1,000 mg Q8HR ORAL 03/03/19 22:00 04/02/19 21:59 03/08/19 05:15 Miscellaneous Medication (fentaNYL Destruction) 1 ea Q72H MISC 03/07/19 13:59 04/06/19 13:58 03/07/19 13:59 Morphine Sulfate (Morphine Sulfate) 2 mg Q4H PRN IVP Moderate Pain (Pain Scale 4-6) 03/03/19 21:15 03/10/19 21:14 Naloxone HCl (Narcan) 0.1 mg PRN IV Sedation scale 3 or 4 03/04/19 13:00 04/03/19 12:59 Nitroglycerin (Ntg) 0.4 mg Q5M PRN SL Prn Chest Pain 03/03/19 21:15 04/02/19 21:14 Ondansetron HCl (Zofran) 4 mg Q6H PRN IVP Nausea & Vomiting 03/03/19 21:15 04/02/19 21:14 Polyethylene Glycol (Miralax) 17 gm DAILYPRN PRN ORAL Constipation 03/03/19 21:15 04/02/19 21:14 Temazepam (Restoril) 15 mg HSPRN PRN ORAL Insomnia 03/03/19 21:15 03/10/19 21:14 Vancomycin HCl (Vanco rx to dose) 1 ea DAILY PRN MISC Per rx protocol 03/03/19 20:45 04/02/19 20:44 Vancomycin HCl/ Dextrose 275 ml @ 137.5 mls/ hr Q8H IVPB 03/08/19 01:00 03/13/19 00:59 03/08/19 09:05 Bill Dixon MD Mar 08, 2019 13:38
--- NOTE | 2019-03-08 13:43 | Infectious Diseases Prog Note ---
Assessment/Plan Assessment/Plan Assessment: Surgical site infection -03/05 wound cx : S.aureus, diptheroids -03/04 wound cx MRSA (S tetracycline, bactrim, Vancomycin),K. pna (R amp; otherwise S) 02/01 SP Panniculectomy Afebrile No leukocytosis Recent hx of B/l Leg cellulitis and panniculitis 12/2018 - in the setting of chronic venous stasis, s/p Rx Recent seizure episode 11/2018 -had L side weakness and spasticity CVA HTN bipolar disorder w/ psychotic features tobacco abuse anxiety disorder chronic pain CHF seizure disorder COPD morbid obesity Dm2 HTN SNF resident Plan: -Continue IV Vancomycin #01/04- and Ceftriaxone #3 (abx d#01/04-) for MRSA and K.pna SSI, respectively --expect switching to PO upon discharge -03/06 SP Cefepime #4 -02/08 SP IV Vancomycin # -02/04 SP Aztreonam #4 -01/26 SP Fluconzole #5 - 01/07/19 SP IV Dapto d# 14 - 01/06/19 S/P Levofloxacin #7 - 12/25/18 sp Bactrim #4 and IV Ancef #3 for cellulitis -f/u cx -Monitor CBC/CMP, temperatures -wound cx -Sx f/u: -wound care per surgical team Thank you for this consultation. Will continue to follow along with you. Discussed with RN Subjective Allergies: Coded Allergies: ASPIRIN (Verified Allergy, Unknown, 07/14/18) KETOROLAC (Verified Allergy, Unknown, 07/14/18) PENICILLINS (Verified Allergy, Unknown, 12/23/18) tolerated Ancef on 08/2018 Subjective afebrile no leukocytosis Objective Vital Signs Last 24 Hour Vital Signs Date Time Temp Pulse Resp B/P (MAP) Pulse Ox O2 Delivery O2 Flow Rate FiO2 03/08/19 12:00 97.9 77 20 149/83 (105) 96 03/08/19 09:00 Room Air 03/08/19 08:53 82 134/79 03/08/19 08:00 98.7 82 20 134/79 (97) 94 03/08/19 04:00 96.8 89 22 132/70 (90) 95 03/08/19 00:00 97.8 88 21 150/79 (102) 95 8/11/19 21:00 Room Air 03/07/19 20:55 77 18 94 Room Air 21 03/07/19 20:55 94 Room Air 21 03/07/19 20:00 97.7 80 20 166/82 (110) 95 03/07/19 16:00 97.5 89 20 149/88 (108) 94 Height (Feet): 6 Height (Inches): 0.00 Weight (Pounds): 450 Objective General Appearance: alert, moderate distress, obese Head: atraumatic Eyes: bilateral eye normal inspection ENT: normal ENT inspection, hearing grossly normal, normal voice Neck: normal inspection, full range of motion, supple, no bony tend Respiratory: normal inspection, lungs clear, normal breath sounds, no respiratory distress, no retraction, no wheezing Cardiovascular #1: regular rate, rhythm, no edema Gastrointestinal: soft, other - Large lower abdomen surgical wound with some drainage, overweight Genitourinary: no CVA tenderness Musculoskeletal: normal range of motion, swelling - Lower extremity Neurologic: normal inspection, alert, responsive, speech normal Psychiatric: normal inspection, judgement/insight normal, mood/affect normal, anxious Skin: other - Erythema abdominal wall erythema abdominal wall with drainage Laboratory Tests Test 03/07/19 23:20 Vancomycin Level Trough 7.5 ug/mL (5.0-12.0) Current Medications Medications (Trade) Dose Ordered Sig/Luis Route PRN Reason Start Time Stop Time Status Last Admin Dose Admin Acetaminophen (Tylenol) 650 mg Q4H PRN ORAL fever 03/03/19 21:15 04/02/19 21:14 Albuterol/ Ipratropium (Albuterol/ Ipratropium) 3 ml Q4H PRN HHN Shortness of Breath 03/03/19 21:15 03/08/19 21:14 Amlodipine Besylate (Norvasc) 5 mg DAILY ORAL 03/04/19 09:00 04/03/19 08:59 03/08/19 08:53 Ceftriaxone Sodium 2 gm/ Dextrose 55 ml @ 110 mls/hr Q24H IVPB 03/06/19 14:00 03/13/19 13:59 03/07/19 14:48 Duloxetine HCl (Cymbalta) 30 mg DAILY ORAL 03/04/19 09:00 04/03/19 08:59 03/08/19 08:53 Fentanyl (Duragesic) 1 patch EVERY 72 HOURS TDERMAL 03/04/19 14:00 03/11/19 13:59 03/07/19 14:50 Furosemide (Lasix) 10 mg Q8HR ORAL 03/03/19 22:00 04/02/19 21:59 03/08/19 05:16 Heparin Sodium (Porcine) (Heparin 5000 units/ml) 5,000 units EVERY 12 HOURS SUBQ 03/04/19 09:00 04/03/19 08:59 03/08/19 08:54 Hydromorphone HCl (Dilaudid) 3 mg Q3H PRN IVP Severe Pain (Pain Scale 7-10) 03/06/19 13:15 03/13/19 13:14 03/08/19 11:29 Levetiracetam (Keppra) 1,000 mg Q8HR ORAL 03/03/19 22:00 04/02/19 21:59 03/08/19 05:15 Miscellaneous Medication (fentaNYL Destruction) 1 ea Q72H MISC 03/07/19 13:59 04/06/19 13:58 03/07/19 13:59 Morphine Sulfate (Morphine Sulfate) 2 mg Q4H PRN IVP Moderate Pain (Pain Scale 4-6) 03/03/19 21:15 03/10/19 21:14 Naloxone HCl (Narcan) 0.1 mg PRN IV Sedation scale 3 or 4 03/04/19 13:00 04/03/19 12:59 Nitroglycerin (Ntg) 0.4 mg Q5M PRN SL Prn Chest Pain 03/03/19 21:15 04/02/19 21:14 Ondansetron HCl (Zofran) 4 mg Q6H PRN IVP Nausea & Vomiting 03/03/19 21:15 04/02/19 21:14 Polyethylene Glycol (Miralax) 17 gm DAILYPRN PRN ORAL Constipation 03/03/19 21:15 04/02/19 21:14 Temazepam (Restoril) 15 mg HSPRN PRN ORAL Insomnia 03/03/19 21:15 03/10/19 21:14 Vancomycin HCl (Vanco rx to dose) 1 ea DAILY PRN MISC Per rx protocol 03/03/19 20:45 04/02/19 20:44 Vancomycin HCl/ Dextrose 275 ml @ 137.5 mls/ hr Q8H IVPB 03/08/19 01:00 03/13/19 00:59 03/08/19 09:05 Alexa Patterson M.D. Mar 08, 2019 13:43
[2019-03-08] MEDS: cefTRIAXone 2 GM in D5W 55 ML IVPB SCH (14:37)
[2019-03-08 16:00] VITALS: BP 133/81
--- NOTE | 2019-03-08 17:30 | Consultation ---
DATE OF CONSULTATION: 03/08/2019 CONSULTING PHYSICIAN: Laney Mcghee M.D. REFERRING PHYSICIAN: Ernesto Nicole D.O. HISTORY OF PRESENT ILLNESS: This is a 53-year-old male patient with cellulitis, but he has increased depression and anxiety. That is why his attending physician has requested daily psychiatric consultation. On interview today, the patient states " leave me alone." He feels very agitated and irritable on interview. MEDICAL HISTORY: He has cellulitis and obesity. ALLERGIES: He has allergies to penicillin, aspirin, and ketorolac. MEDICATIONS: Psychotropic medications on admission, Cymbalta 30 mg daily. SUBSTANCE ABUSE HISTORY: Denies. PAIN ASSESSMENT: 12/04 pain. DEVELOPMENTAL PROBLEMS: Denies. FAMILY PSYCHIATRIC HISTORY: Denies. SOCIAL HISTORY: This patient is currently living in [facility], financially supported by [facility] and Medicare. PSYCHIATRIC HISTORY: Major depressive disorder, mild, recurrent; rule out generalized anxiety disorder. STRENGTHS: He is motivated to get better and has a place to live. WEAKNESSES: He is impulsive. Minimal support system. MENTAL STATUS EXAMINATION: This is a 53-year-old male. Appearance is disheveled. Attitude, irritable and agitated. Affect, guarded and restricted. Intellect, poor. Mood, depressed and anxious. Motor activity, psychomotor agitation. Attention span is poor. Orientation x2. Speech is pressured. Thought process, disorganized and illogical. Insight and judgment is poor. DIAGNOSES: PRIMARY: Major depressive disorder, mild, recurrent without psychotic features. SECONDARY: None. MEDICAL: Cellulitis. PSYCHOSOCIAL STRESSORS: Financial. Functional impairment, severe PLAN: Continue Cymbalta 30 mg daily. A 20 minutes of cognitive behavioral therapy to help him identify his automatic negative thoughts and help him convert those negative thoughts to more positive thoughts to reduce depression, anxiety, and mood lability. Chart reviewed. Discussed with staff. Seen and assessed at his bedside. Dr. Ernesto Nicole, I would like to thank you for this interesting consultation. Laney Mcghee M.D. DR: SHANEKA JOB#: [id number] CC:
[2019-03-08 20:00] VITALS: BP 131/72
[2019-03-09] VITALS: BP 126/77
[2019-03-09 00:31] LABS: BASOPHILS % (AUTO) 0.5 % (0.0-2.0); EOSINOPHILS % (AUTO) 3.9 % (0.0-3.0); HEMATOCRIT 31.3 % (42.0-52.0); HEMOGLOBIN 9.9 G/DL (14.2-18.0); LYMPHOCYTES % (AUTO) 26.7 % (20.0-45.0); MEAN CORPUSCULAR VOLUME 88 FL (80-99); NEUTROPHILS % (AUTO) 61.9 % (45.0-75.0); PLATELET COUNT 356 K/UL (150-450); RED BLOOD COUNT 3.56 M/UL (4.70-6.10); RED CELL DISTRIBUTION WIDTH 14.4 % (11.6-14.8); WHITE BLOOD COUNT 8.7 K/UL (4.8-10.8)
[2019-03-09 00:52] LABS: ANION GAP 3 mmol/L (5-15); BLOOD UREA NITROGEN 12 mg/dL (7-18); CALCIUM 9.2 MG/DL (8.5-10.1); CARBON DIOXIDE 35 MMOL/L (21-32); CHLORIDE 97 MMOL/L (98-107); CREATININE 0.8 MG/DL (0.55-1.30); POTASSIUM 4.9 MMOL/L (3.5-5.1); SODIUM 135 MMOL/L (136-145)
[2019-03-09] MEDS: Vancomycin 1.25gm/D5W 275ml IVPB SCH ×6 (02:48→19:00)
[2019-03-09 04:00] VITALS: BP 132/83
[2019-03-09 08:00] VITALS: BP 138/73
[2019-03-09] MEDS: DULoxetine 30mg cap ORAL SCH (08:57)
[2019-03-09] MEDS: Heparin 5000 units/ml inj SUBQ SCH ×2 (09:00→21:37)
--- NOTE | 2019-03-09 11:00 | Infectious Diseases Prog Note ---
Assessment/Plan Assessment/Plan Assessment: Surgical site infection -03/05 wound cx : S.aureus, diptheroids -03/04 wound cx MRSA (S tetracycline, bactrim, Vancomycin),K. pna (R amp; otherwise S) 02/01 SP Panniculectomy Afebrile No leukocytosis Recent hx of B/l Leg cellulitis and panniculitis 12/2018 - in the setting of chronic venous stasis, s/p Rx Recent seizure episode 11/2018 -had L side weakness and spasticity CVA HTN bipolar disorder w/ psychotic features tobacco abuse anxiety disorder chronic pain CHF seizure disorder COPD morbid obesity Dm2 HTN SNF resident Plan: -Continue IV Vancomycin #02/03- and Ceftriaxone #4 (abx d#02/03-) for MRSA and K.pna SSI, respectively --expect switching to PO upon discharge -03/06 SP Cefepime #4 -02/08 SP IV Vancomycin # -02/04 SP Aztreonam #4 -01/26 SP Fluconzole #5 - 01/07/19 SP IV Dapto d# 14 - 01/06/19 S/P Levofloxacin #7 - 12/25/18 sp Bactrim #4 and IV Ancef #3 for cellulitis -f/u cx -Monitor CBC/CMP, temperatures -wound cx -Sx f/u: -wound care per surgical team Thank you for this consultation. Will continue to follow along with you. Discussed with RN Subjective Allergies: Coded Allergies: ASPIRIN (Verified Allergy, Unknown, 07/14/18) KETOROLAC (Verified Allergy, Unknown, 07/14/18) PENICILLINS (Verified Allergy, Unknown, 12/23/18) tolerated Ancef on 08/2018 Subjective afebrile no leukocytosis Objective Vital Signs Last 24 Hour Vital Signs Date Time Temp Pulse Resp B/P (MAP) Pulse Ox O2 Delivery O2 Flow Rate FiO2 03/09/19 09:00 Room Air 03/09/19 08:57 83 132/83 03/09/19 08:00 99.0 82 18 138/73 (94) 03/09/19 04:00 98.3 83 20 132/83 (99) 03/09/19 00:00 98.3 74 20 126/77 (93) 03/08/19 21:00 Room Air 8/12/19 20:36 75 20 94 Room Air 21 03/08/19 20:36 94 Room Air 21 03/08/19 20:00 98.2 75 20 131/72 (91) 03/08/19 16:00 98.5 77 20 133/81 (98) 94 03/08/19 12:00 97.9 77 20 149/83 (105) 96 Height (Feet): 6 Height (Inches): 0.00 Weight (Pounds): 450 Objective General Appearance: alert, moderate distress, obese Head: atraumatic Eyes: bilateral eye normal inspection ENT: normal ENT inspection, hearing grossly normal, normal voice Neck: normal inspection, full range of motion, supple, no bony tend Respiratory: normal inspection, lungs clear, normal breath sounds, no respiratory distress, no retraction, no wheezing Cardiovascular #1: regular rate, rhythm, no edema Gastrointestinal: soft, other - Large lower abdomen surgical wound with some drainage, overweight Genitourinary: no CVA tenderness Musculoskeletal: normal range of motion, swelling - Lower extremity Neurologic: normal inspection, alert, responsive, speech normal Psychiatric: normal inspection, judgement/insight normal, mood/affect normal, anxious Skin: other - Erythema abdominal wall erythema abdominal wall with drainage Laboratory Tests Test 03/09/19 00:20 White Blood Count 8.7 K/UL (4.8-10.8) Red Blood Count 3.56 M/UL (4.70-6.10) L Hemoglobin 9.9 G/DL (14.2-18.0) L Hematocrit 31.3 % (42.0-52.0) L Mean Corpuscular Volume 88 FL (80-99) Mean Corpuscular Hemoglobin 27.8 PG (27.0-31.0) Mean Corpuscular Hemoglobin Concent 31.6 G/DL (32.0-36.0) L Red Cell Distribution Width 14.4 % (11.6-14.8) Platelet Count 356 K/UL (150-450) Mean Platelet Volume 4.0 FL (6.5-10.1) L Neutrophils (%) (Auto) 61.9 % (45.0-75.0) Lymphocytes (%) (Auto) 26.7 % (20.0-45.0) Monocytes (%) (Auto) 7.0 % (1.0-10.0) Eosinophils (%) (Auto) 3.9 % (0.0-3.0) H Basophils (%) (Auto) 0.5 % (0.0-2.0) Sodium Level 135 MMOL/L (136-145) L Potassium Level 4.9 MMOL/L (3.5-5.1) Chloride Level 97 MMOL/L (98-107) L Carbon Dioxide Level 35 MMOL/L (21-32) H Anion Gap 3 mmol/L (5-15) L Blood Urea Nitrogen 12 mg/dL (7-18) Creatinine 0.8 MG/DL (0.55-1.30) Estimat Glomerular Filtration Rate > 60 mL/min (>60) Glucose Level 98 MG/DL (74-106) Calcium Level 9.2 MG/DL (8.5-10.1) Vancomycin Level Trough 20.5 ug/mL (5.0-12.0) H Current Medications Medications (Trade) Dose Ordered Sig/Luis Route PRN Reason Start Time Stop Time Status Last Admin Dose Admin Acetaminophen (Tylenol) 650 mg Q4H PRN ORAL fever 03/03/19 21:15 04/02/19 21:14 Amlodipine Besylate (Norvasc) 5 mg DAILY ORAL 03/04/19 09:00 04/03/19 08:59 03/09/19 08:57 Ceftriaxone Sodium 2 gm/ Dextrose 55 ml @ 110 mls/hr Q24H IVPB 03/06/19 14:00 03/13/19 13:59 03/08/19 14:37 Duloxetine HCl (Cymbalta) 30 mg DAILY ORAL 03/04/19 09:00 04/03/19 08:59 03/09/19 08:57 Fentanyl (Duragesic) 1 patch EVERY 72 HOURS TDERMAL 03/04/19 14:00 03/11/19 13:59 03/07/19 14:50 Furosemide (Lasix) 10 mg Q8HR ORAL 03/03/19 22:00 04/02/19 21:59 03/09/19 05:51 Heparin Sodium (Porcine) (Heparin 5000 units/ml) 5,000 units EVERY 12 HOURS SUBQ 03/04/19 09:00 04/03/19 08:59 03/09/19 09:00 Hydromorphone HCl (Dilaudid) 3 mg Q3H PRN IVP Severe Pain (Pain Scale 7-10) 03/06/19 13:15 03/13/19 13:14 03/09/19 09:02 Levetiracetam (Keppra) 1,000 mg Q8HR ORAL 03/03/19 22:00 04/02/19 21:59 03/09/19 05:51 Miscellaneous Medication (fentaNYL Destruction) 1 ea Q72H MISC 03/07/19 13:59 04/06/19 13:58 03/07/19 13:59 Morphine Sulfate (Morphine Sulfate) 2 mg Q4H PRN IVP Moderate Pain (Pain Scale 4-6) 03/03/19 21:15 03/10/19 21:14 Naloxone HCl (Narcan) 0.1 mg PRN IV Sedation scale 3 or 4 03/04/19 13:00 04/03/19 12:59 Nitroglycerin (Ntg) 0.4 mg Q5M PRN SL Prn Chest Pain 03/03/19 21:15 04/02/19 21:14 Ondansetron HCl (Zofran) 4 mg Q6H PRN IVP Nausea & Vomiting 03/03/19 21:15 04/02/19 21:14 Polyethylene Glycol (Miralax) 17 gm DAILYPRN PRN ORAL Constipation 03/03/19 21:15 04/02/19 21:14 Temazepam (Restoril) 15 mg HSPRN PRN ORAL Insomnia 03/03/19 21:15 03/10/19 21:14 Vancomycin HCl (Vanco rx to dose) 1 ea DAILY PRN MISC Per rx protocol 03/03/19 20:45 04/02/19 20:44 Vancomycin HCl 1.25 gm/Dextrose 275 ml @ 183.33 mls/ hr Q8H IVPB 03/09/19 03:00 03/14/19 02:59 03/09/19 02:48 Alexa Patterson M.D. Mar 09, 2019 11:00
--- NOTE | 2019-03-09 11:45 | Progress Note ---
DATE: 03/09/2019 SUBJECTIVE: This is a 53-year-old male patient came with recurrent cellulitis, but he still has a lot of agitation, irritability, confusion, and also depression anxiety. That is why, daily psychiatric consultation requested for this patient. MENTAL STATUS EXAMINATION: This is a 53-year-old male. Appearance is disheveled. Attitude, irritable and agitated. Affect, guarded and restricted. Intellect poor. Mood, depressed and anxious. Motor activity, psychomotor agitation. Attention span is poor. Orientation x2. Speech is pressured. Thought process is disorganized and illogical. Insight and judgment is poor. DIAGNOSIS: Major depressive disorder, mild, recurrent without psychotic features, rule out generalized anxiety disorder. PLAN: Treat him with Cymbalta 30 mg a day. A 20 minutes of cognitive behavioral therapy to help this patient identify his automatic negative thoughts and help to convert those negative thoughts to more positive thoughts to reduce depression, anxiety, and mood lability and encouraged him to interact appropriately with staff. A 20 minutes of cognitive behavioral therapy. Chart reviewed. Discussed with staff. Continue Cymbalta 30 mg daily. Seen and assessed in his room. Laney Mcghee M.D. DR: GUTIERREZ JOB#: [id number] CC:
[2019-03-09 12:00] VITALS: BP 150/82
[2019-03-09] MEDS ORDERED: Lidocaine 1% Plain 30 ml INJ PRN (13:15)
[2019-03-09] MEDS: cefTRIAXone 2 GM in D5W 55 ML IVPB SCH (14:00)
--- NOTE | 2019-03-09 14:02 | Pulmonology Progress Note ---
Assessment/Plan Problems: (1) Cellulitis (2) Status post panniculectomy (3) COPD (chronic obstructive pulmonary disease) (4) Lumbar spondylosis (5) ADALBERTO (obstructive sleep apnea) (6) Abdominal pannus (7) Seizures (8) Cerebrovascular accident (9) Peripheral edema Assessment/Plan doing better pain is better controlled iv abx' respiratory treatment titrate fio2 to sat of 92% for PICC line placement Subjective ROS Limited/Unobtainable: No Constitutional: Reports: no symptoms HEENT: Repors: no symptoms Allergies: Coded Allergies: ASPIRIN (Verified Allergy, Unknown, 07/14/18) KETOROLAC (Verified Allergy, Unknown, 07/14/18) PENICILLINS (Verified Allergy, Unknown, 12/23/18) tolerated Ancef on 08/2018 Objective Last 24 Hour Vital Signs Date Time Temp Pulse Resp B/P (MAP) Pulse Ox O2 Delivery O2 Flow Rate FiO2 03/09/19 09:32 98.3 03/09/19 09:00 Room Air 03/09/19 08:57 83 132/83 03/09/19 08:00 99.0 82 18 138/73 (94) 03/09/19 04:00 98.3 83 20 132/83 (99) 03/09/19 00:00 98.3 74 20 126/77 (93) 03/08/19 21:00 Room Air 03/08/19 20:36 75 20 94 Room Air 21 03/08/19 20:36 94 Room Air 21 03/08/19 20:00 98.2 75 20 131/72 (91) 03/08/19 16:00 98.5 77 20 133/81 (98) 94 Intake and Output 03/08/19 03/09/19 19:00 07:00 Intake Total 600 ml Output Total 2400 ml Balance -1800 ml Intake Oral 600 ml Output Urine Total 2400 ml # Voids 2 General Appearance: WD/WN HEENT: normocephalic, anicteric Respiratory/Chest: lungs clear, normal breath sounds Cardiovascular: normal peripheral pulses, normal rate Abdomen: normal bowel sounds, soft, non tender Extremities: no cyanosis, no clubbing Skin: no lesions Laboratory Tests 03/09/19 00:20: White Blood Count 8.7, Red Blood Count 3.56L, Hemoglobin 9.9L, Hematocrit 31.3L , Mean Corpuscular Volume 88, Mean Corpuscular Hemoglobin 27.8, Mean Corpuscular Hemoglobin Concent 31.6L, Red Cell Distribution Width 14.4, Platelet Count 356, Mean Platelet Volume 4.0L, Neutrophils (%) (Auto) 61.9, Lymphocytes (%) (Auto) 26.7, Monocytes (%) (Auto) 7.0, Eosinophils (%) (Auto) 3.9H, Basophils (%) (Auto) 0.5, Sodium Level 135L, Potassium Level 4.9, Chloride Level 97L, Carbon Dioxide Level 35H, Anion Gap 3L, Blood Urea Nitrogen 12, Creatinine 0.8, Estimat Glomerular Filtration Rate > 60, Glucose Level 98, Calcium Level 9.2, Vancomycin Level Trough 20.5H Current Medications Medications (Trade) Dose Ordered Sig/Luis Route PRN Reason Start Time Stop Time Status Last Admin Dose Admin Acetaminophen (Tylenol) 650 mg Q4H PRN ORAL fever 03/03/19 21:15 04/02/19 21:14 Amlodipine Besylate (Norvasc) 5 mg DAILY ORAL 03/04/19 09:00 04/03/19 08:59 03/09/19 08:57 Ceftriaxone Sodium 2 gm/ Dextrose 55 ml @ 110 mls/hr Q24H IVPB 03/06/19 14:00 03/13/19 13:59 03/08/19 14:37 Chlorhexidine Gluconate (Ruby-Hex 2%) 1 applic DAILY@2000 TOPIC 03/09/19 20:00 04/08/19 19:59 Duloxetine HCl (Cymbalta) 30 mg DAILY ORAL 03/04/19 09:00 04/03/19 08:59 03/09/19 08:57 Fentanyl (Duragesic) 1 patch EVERY 72 HOURS TDERMAL 03/04/19 14:00 03/11/19 13:59 03/07/19 14:50 Furosemide (Lasix) 10 mg Q8HR ORAL 03/03/19 22:00 04/02/19 21:59 03/09/19 05:51 Heparin Sodium (Porcine) (Heparin 5000 units/ml) 5,000 units EVERY 12 HOURS SUBQ 03/04/19 09:00 04/03/19 08:59 03/09/19 09:00 Hydromorphone HCl (Dilaudid) 3 mg Q3H PRN IVP Severe Pain (Pain Scale 7-10) 03/06/19 13:15 03/13/19 13:14 03/09/19 09:02 Levetiracetam (Keppra) 1,000 mg Q8HR ORAL 03/03/19 22:00 04/02/19 21:59 03/09/19 05:51 Lidocaine HCl (Xylocaine 1% 30ml) 30 ml ONCE PRN INJ PICC 03/09/19 13:15 03/09/19 23:59 Miscellaneous Medication (fentaNYL Destruction) 1 ea Q72H MISC 03/07/19 13:59 04/06/19 13:58 03/07/19 13:59 Morphine Sulfate (Morphine Sulfate) 2 mg Q4H PRN IVP Moderate Pain (Pain Scale 4-6) 03/03/19 21:15 03/10/19 21:14 Naloxone HCl (Narcan) 0.1 mg PRN IV Sedation scale 3 or 4 03/04/19 13:00 04/03/19 12:59 Nitroglycerin (Ntg) 0.4 mg Q5M PRN SL Prn Chest Pain 03/03/19 21:15 04/02/19 21:14 Ondansetron HCl (Zofran) 4 mg Q6H PRN IVP Nausea & Vomiting 03/03/19 21:15 04/02/19 21:14 Polyethylene Glycol (Miralax) 17 gm DAILYPRN PRN ORAL Constipation 03/03/19 21:15 04/02/19 21:14 Temazepam (Restoril) 15 mg HSPRN PRN ORAL Insomnia 03/03/19 21:15 03/10/19 21:14 Vancomycin HCl (Vanco rx to dose) 1 ea DAILY PRN MISC Per rx protocol 03/03/19 20:45 04/02/19 20:44 Vancomycin HCl 1.25 gm/Dextrose 275 ml @ 183.33 mls/ hr Q8H IVPB 03/09/19 03:00 03/14/19 02:59 03/09/19 11:19 Bill Dixon MD Mar 09, 2019 14:02
--- NOTE | 2019-03-09 14:55 | General Progress Note ---
Assessment/Plan Problem List: (1) Wound infection after surgery ICD Codes: T81.49XA - Infection following a procedure, other surgical site, initial encounter SNOMED: 03610189, 425121468 (2) Cellulitis ICD Codes: L03.90 - Cellulitis, unspecified SNOMED: 496069117 (3) COPD (chronic obstructive pulmonary disease) ICD Codes: J44.9 - Chronic obstructive pulmonary disease, unspecified SNOMED: 63536353 (4) Morbid obesity ICD Codes: E66.01 - Morbid (severe) obesity due to excess calories SNOMED: 536687040 (5) Abdominal pannus ICD Codes: E65 - Localized adiposity SNOMED: 2207975188241 (6) Peripheral edema ICD Codes: R60.9 - Edema, unspecified SNOMED: 913186526 (7) Abdominal wall cellulitis ICD Codes: L03.311 - Cellulitis of abdominal wall SNOMED: 28718009 Status: stable, progressing Assessment/Plan: o2 pulm tx wound care abx cbc bmp am Subjective Constitutional: Reports: weakness Allergies: Coded Allergies: ASPIRIN (Verified Allergy, Unknown, 07/14/18) KETOROLAC (Verified Allergy, Unknown, 07/14/18) PENICILLINS (Verified Allergy, Unknown, 12/23/18) tolerated Ancef on 08/2018 All Systems: reviewed and negative except above Subjective sl gen pain Objective Last 24 Hour Vital Signs Date Time Temp Pulse Resp B/P (MAP) Pulse Ox O2 Delivery O2 Flow Rate FiO2 03/09/19 09:32 98.3 03/09/19 09:00 Room Air 03/09/19 08:57 83 132/83 03/09/19 08:00 99.0 82 18 138/73 (94) 03/09/19 04:00 98.3 83 20 132/83 (99) 03/09/19 00:00 98.3 74 20 126/77 (93) 03/08/19 21:00 Room Air 03/08/19 20:36 75 20 94 Room Air 21 03/08/19 20:36 94 Room Air 21 03/08/19 20:00 98.2 75 20 131/72 (91) 03/08/19 16:00 98.5 77 20 133/81 (98) 94 Intake and Output 03/08/19 03/09/19 19:00 07:00 Intake Total 600 ml Output Total 2400 ml Balance -1800 ml Intake Oral 600 ml Output Urine Total 2400 ml # Voids 2 Laboratory Tests 03/09/19 00:20: White Blood Count 8.7, Red Blood Count 3.56L, Hemoglobin 9.9L, Hematocrit 31.3L , Mean Corpuscular Volume 88, Mean Corpuscular Hemoglobin 27.8, Mean Corpuscular Hemoglobin Concent 31.6L, Red Cell Distribution Width 14.4, Platelet Count 356, Mean Platelet Volume 4.0L, Neutrophils (%) (Auto) 61.9, Lymphocytes (%) (Auto) 26.7, Monocytes (%) (Auto) 7.0, Eosinophils (%) (Auto) 3.9H, Basophils (%) (Auto) 0.5, Sodium Level 135L, Potassium Level 4.9, Chloride Level 97L, Carbon Dioxide Level 35H, Anion Gap 3L, Blood Urea Nitrogen 12, Creatinine 0.8, Estimat Glomerular Filtration Rate > 60, Glucose Level 98, Calcium Level 9.2, Vancomycin Level Trough 20.5H Height (Feet): 6 Height (Inches): 0.00 Weight (Pounds): 450 General Appearance: lethargic EENT: normal ENT inspection Neck: normal alignment Cardiovascular: normal peripheral pulses, normal rate, regular rhythm Respiratory/Chest: chest wall non-tender, lungs clear, normal breath sounds Abdomen: non tender, soft, distended Extremities: normal inspection Edema: 1+ Arm (L), 1+ Arm (R), 1+ Leg (L), 1+ Leg (R), 1+ Pedal (L), 1+ Pedal ( R), 1+ Generalized Edema: trace edema Neurologic: responsive, motor weakness Skin: normal pigmentation, warm/dry Ernesto Nicole DO Mar 09, 2019 14:55
[2019-03-09 16:00] VITALS: BP 144/86
[2019-03-09 20:00] VITALS: BP 104/56
[2019-03-09] MEDS: Dyna-Hex 2% Top Sol 2oz TOPIC SCH (21:36)
[2019-03-10] VITALS (7 sets, daily range): BP systolic 117–140; BP diastolic 72–84
[2019-03-10] MEDS: Vancomycin 1.25gm/D5W 275ml IVPB SCH ×4 (02:46→11:00)
[2019-03-10 06:13] LABS: BASOPHILS % (AUTO) 0.5 % (0.0-2.0); EOSINOPHILS % (AUTO) 3.7 % (0.0-3.0); HEMATOCRIT 31.1 % (42.0-52.0); HEMOGLOBIN 9.8 G/DL (14.2-18.0); LYMPHOCYTES % (AUTO) 26.9 % (20.0-45.0); MEAN CORPUSCULAR VOLUME 89 FL (80-99); MONOCYTES % (AUTO) 7.3 % (1.0-10.0); NEUTROPHILS % (AUTO) 61.6 % (45.0-75.0); PLATELET COUNT 377 K/UL (150-450); RED BLOOD COUNT 3.47 M/UL (4.70-6.10); RED CELL DISTRIBUTION WIDTH 14.2 % (11.6-14.8); WHITE BLOOD COUNT 8.3 K/UL (4.8-10.8)
[2019-03-10 06:53] LABS: ANION GAP 3 mmol/L (5-15); BLOOD UREA NITROGEN 14 mg/dL (7-18); CALCIUM 9.3 MG/DL (8.5-10.1); CARBON DIOXIDE 35 MMOL/L (21-32); CHLORIDE 97 MMOL/L (98-107); CREATININE 0.9 MG/DL (0.55-1.30); POTASSIUM 3.9 MMOL/L (3.5-5.1); SODIUM 135 MMOL/L (136-145)
[2019-03-10] MEDS: Heparin 5000 units/ml inj SUBQ SCH ×2 (09:00→20:29)
[2019-03-10] MEDS: DULoxetine 30mg cap ORAL SCH ×2 (09:00→10:33)
--- NOTE | 2019-03-10 09:14 | Progress Note ---
DATE: 03/10/2019 SUBJECTIVE: This is a 53-year-old male patient with cellulitis, high levels of anxiety and depression as a result. DIAGNOSIS: Major depressive disorder, mild, recurrent, without psychotic features. PLAN: Treat him with Cymbalta 30 mg daily. 20 minutes of cognitive behavioral therapy to help identify his automatic negative thoughts and help him convert those negative thoughts to more positive thoughts to reduce depression, anxiety, and mood lability. Chart reviewed. Discussed with staff. Seen and assessed at bedside. Laney Mcghee M.D. DR: SHANEKA JOB#: [id number] CC:
--- NOTE | 2019-03-10 10:04 | General Progress Note ---
Assessment/Plan Problem List: (1) Wound infection after surgery ICD Codes: T81.49XA - Infection following a procedure, other surgical site, initial encounter SNOMED: 21083535, 701170212 (2) Cellulitis ICD Codes: L03.90 - Cellulitis, unspecified SNOMED: 421518306 (3) COPD (chronic obstructive pulmonary disease) ICD Codes: J44.9 - Chronic obstructive pulmonary disease, unspecified SNOMED: 05052431 (4) Morbid obesity ICD Codes: E66.01 - Morbid (severe) obesity due to excess calories SNOMED: 589347908 (5) Abdominal pannus ICD Codes: E65 - Localized adiposity SNOMED: 7248128935231 (6) Peripheral edema ICD Codes: R60.9 - Edema, unspecified SNOMED: 747990114 (7) Abdominal wall cellulitis ICD Codes: L03.311 - Cellulitis of abdominal wall SNOMED: 27145390 Status: stable, progressing Assessment/Plan: o2 pulm tx wound care abx dc if clear Subjective Constitutional: Reports: weakness Allergies: Coded Allergies: ASPIRIN (Verified Allergy, Unknown, 07/14/18) KETOROLAC (Verified Allergy, Unknown, 07/14/18) PENICILLINS (Verified Allergy, Unknown, 12/23/18) tolerated Ancef on 08/2018 All Systems: reviewed and negative except above Subjective sl gen pain Objective Last 24 Hour Vital Signs Date Time Temp Pulse Resp B/P (MAP) Pulse Ox O2 Delivery O2 Flow Rate FiO2 03/10/19 04:00 99.1 84 18 139/72 (94) 97 03/10/19 00:00 98.1 86 140/74 (96) 94 03/09/19 21:00 Room Air 03/09/19 20:08 95 Room Air 21 03/09/19 20:00 97.8 81 104/56 (72) 96 03/09/19 18:56 98.0 03/09/19 16:00 98.0 82 19 144/86 (105) 03/09/19 12:00 98.6 86 18 150/82 (104) Intake and Output 03/09/19 03/10/19 19:00 07:00 Intake Total 1220 ml Output Total 1600 ml 1600 ml Balance -380 ml -1600 ml Intake Oral 1220 ml Output Urine Total 1600 ml 1600 ml # Voids 2 Laboratory Tests 03/10/19 05:58: White Blood Count 8.3, Red Blood Count 3.47L, Hemoglobin 9.8L, Hematocrit 31.1L , Mean Corpuscular Volume 89, Mean Corpuscular Hemoglobin 28.1, Mean Corpuscular Hemoglobin Concent 31.4L, Red Cell Distribution Width 14.2, Platelet Count 377, Mean Platelet Volume 4.2L, Neutrophils (%) (Auto) 61.6, Lymphocytes (%) (Auto) 26.9, Monocytes (%) (Auto) 7.3, Eosinophils (%) (Auto) 3.7H, Basophils (%) (Auto) 0.5, Sodium Level 135L, Potassium Level 3.9, Chloride Level 97L, Carbon Dioxide Level 35H, Anion Gap 3L, Blood Urea Nitrogen 14, Creatinine 0.9, Estimat Glomerular Filtration Rate > 60, Glucose Level 106, Calcium Level 9.3 Height (Feet): 6 Height (Inches): 0.00 Weight (Pounds): 450 General Appearance: alert EENT: normal ENT inspection Neck: normal alignment Cardiovascular: normal peripheral pulses, normal rate, regular rhythm Respiratory/Chest: chest wall non-tender, lungs clear, normal breath sounds Abdomen: soft, distended Extremities: normal inspection Edema: 1+ Arm (L), 1+ Arm (R), 1+ Leg (L), 1+ Leg (R), 1+ Pedal (L), 1+ Pedal ( R), 1+ Generalized Neurologic: responsive, motor weakness Skin: normal pigmentation, warm/dry Ernesto Nicole DO Mar 10, 2019 10:04
--- NOTE | 2019-03-10 12:15 | Infectious Diseases Prog Note ---
Assessment/Plan Assessment/Plan Assessment: Surgical site infection -03/05 wound cx : S.aureus, diptheroids -03/04 wound cx MRSA (S tetracycline, bactrim, Vancomycin),K. pna (R amp; otherwise S) 02/01 SP Panniculectomy Afebrile No leukocytosis Recent hx of B/l Leg cellulitis and panniculitis 12/2018 - in the setting of chronic venous stasis, s/p Rx Recent seizure episode 11/2018 -had L side weakness and spasticity CVA HTN bipolar disorder w/ psychotic features tobacco abuse anxiety disorder chronic pain CHF seizure disorder COPD morbid obesity Dm2 HTN SNF resident Plan: -Continue IV Vancomycin #03/10 and Ceftriaxone #5 (abx d#03/10) for MRSA and K.pna SSI, respectively --ok to discharge on PO Doxycycline 100mg bid and Levaquin 750mg qd for 7 days -03/06 SP Cefepime #4 -02/08 SP IV Vancomycin #8 -02/04 SP Aztreonam #4 -01/26 SP Fluconzole #5 - 01/07/19 SP IV Dapto d# 14 - 01/06/19 S/P Levofloxacin #7 - 12/25/18 sp Bactrim #4 and IV Ancef #3 for cellulitis -f/u cx -Monitor CBC/CMP, temperatures -wound cx -Sx f/u: -wound care per surgical team Thank you for this consultation. Will continue to follow along with you. Discussed with RN Subjective Allergies: Coded Allergies: ASPIRIN (Verified Allergy, Unknown, 07/14/18) KETOROLAC (Verified Allergy, Unknown, 07/14/18) PENICILLINS (Verified Allergy, Unknown, 12/23/18) tolerated Ancef on 08/2018 Subjective afebrile no leukocytosis Objective Vital Signs Last 24 Hour Vital Signs Date Time Temp Pulse Resp B/P (MAP) Pulse Ox O2 Delivery O2 Flow Rate FiO2 03/10/19 10:34 79 117/72 03/10/19 09:00 Room Air 03/10/19 08:00 98.1 79 18 117/72 (87) 94 03/10/19 04:00 99.1 84 18 139/72 (94) 97 03/10/19 00:00 98.1 86 140/74 (96) 94 03/09/19 21:00 Room Air 03/09/19 20:08 95 Room Air 21 03/09/19 20:00 97.8 81 104/56 (72) 96 03/09/19 18:56 98.0 03/09/19 16:00 98.0 82 19 144/86 (105) Height (Feet): 6 Height (Inches): 0.00 Weight (Pounds): 450 Objective General Appearance: alert, moderate distress, obese Head: atraumatic Eyes: bilateral eye normal inspection ENT: normal ENT inspection, hearing grossly normal, normal voice Neck: normal inspection, full range of motion, supple, no bony tend Respiratory: normal inspection, lungs clear, normal breath sounds, no respiratory distress, no retraction, no wheezing Cardiovascular #1: regular rate, rhythm, no edema Gastrointestinal: soft, other - Large lower abdomen surgical wound with some drainage, overweight Genitourinary: no CVA tenderness Musculoskeletal: normal range of motion, swelling - Lower extremity Neurologic: normal inspection, alert, responsive, speech normal Psychiatric: normal inspection, judgement/insight normal, mood/affect normal, anxious Skin: other - Erythema abdominal wall erythema abdominal wall with drainage Laboratory Tests Test 03/10/19 05:58 White Blood Count 8.3 K/UL (4.8-10.8) Red Blood Count 3.47 M/UL (4.70-6.10) L Hemoglobin 9.8 G/DL (14.2-18.0) L Hematocrit 31.1 % (42.0-52.0) L Mean Corpuscular Volume 89 FL (80-99) Mean Corpuscular Hemoglobin 28.1 PG (27.0-31.0) Mean Corpuscular Hemoglobin Concent 31.4 G/DL (32.0-36.0) L Red Cell Distribution Width 14.2 % (11.6-14.8) Platelet Count 377 K/UL (150-450) Mean Platelet Volume 4.2 FL (6.5-10.1) L Neutrophils (%) (Auto) 61.6 % (45.0-75.0) Lymphocytes (%) (Auto) 26.9 % (20.0-45.0) Monocytes (%) (Auto) 7.3 % (1.0-10.0) Eosinophils (%) (Auto) 3.7 % (0.0-3.0) H Basophils (%) (Auto) 0.5 % (0.0-2.0) Sodium Level 135 MMOL/L (136-145) L Potassium Level 3.9 MMOL/L (3.5-5.1) Chloride Level 97 MMOL/L (98-107) L Carbon Dioxide Level 35 MMOL/L (21-32) H Anion Gap 3 mmol/L (5-15) L Blood Urea Nitrogen 14 mg/dL (7-18) Creatinine 0.9 MG/DL (0.55-1.30) Estimat Glomerular Filtration Rate > 60 mL/min (>60) Glucose Level 106 MG/DL (74-106) Calcium Level 9.3 MG/DL (8.5-10.1) Current Medications Medications (Trade) Dose Ordered Sig/Luis Route PRN Reason Start Time Stop Time Status Last Admin Dose Admin Acetaminophen (Tylenol) 650 mg Q4H PRN ORAL fever 03/03/19 21:15 04/02/19 21:14 Amlodipine Besylate (Norvasc) 5 mg DAILY ORAL 03/04/19 09:00 04/03/19 08:59 03/10/19 10:34 Ceftriaxone Sodium 2 gm/ Dextrose 55 ml @ 110 mls/hr Q24H IVPB 03/06/19 14:00 03/13/19 13:59 03/08/19 14:37 Chlorhexidine Gluconate (Ruby-Hex 2%) 1 applic DAILY@2000 TOPIC 03/09/19 20:00 04/08/19 19:59 03/09/19 21:36 Duloxetine HCl (Cymbalta) 30 mg DAILY ORAL 03/04/19 09:00 04/03/19 08:59 03/10/19 10:33 Fentanyl (Duragesic) 1 patch EVERY 72 HOURS TDERMAL 03/04/19 14:00 03/10/19 13:59 03/07/19 14:50 Fentanyl (Duragesic) 1 patch Q72H TDERMAL 03/10/19 14:00 03/17/19 13:59 Furosemide (Lasix) 10 mg Q8HR ORAL 03/03/19 22:00 04/02/19 21:59 03/10/19 05:08 Heparin Sodium (Porcine) (Heparin 5000 units/ml) 5,000 units EVERY 12 HOURS SUBQ 03/04/19 09:00 9/7/19 08:59 03/09/19 21:37 Hydromorphone HCl (Dilaudid) 3 mg Q3H PRN IVP Severe Pain (Pain Scale 7-10) 03/06/19 13:15 03/13/19 13:14 03/10/19 10:22 Levetiracetam (Keppra) 1,000 mg Q8HR ORAL 03/03/19 22:00 04/02/19 21:59 03/10/19 05:08 Miscellaneous Medication (fentaNYL Destruction) 1 ea Q72H MISC 03/07/19 13:59 04/06/19 13:58 03/07/19 13:59 Morphine Sulfate (Morphine Sulfate) 2 mg Q4H PRN IVP Moderate Pain (Pain Scale 4-6) 03/03/19 21:15 03/10/19 21:14 Naloxone HCl (Narcan) 0.1 mg PRN IV Sedation scale 3 or 4 03/04/19 13:00 04/03/19 12:59 Nitroglycerin (Ntg) 0.4 mg Q5M PRN SL Prn Chest Pain 03/03/19 21:15 04/02/19 21:14 Ondansetron HCl (Zofran) 4 mg Q6H PRN IVP Nausea & Vomiting 03/03/19 21:15 04/02/19 21:14 Polyethylene Glycol (Miralax) 17 gm DAILYPRN PRN ORAL Constipation 03/03/19 21:15 04/02/19 21:14 Temazepam (Restoril) 15 mg HSPRN PRN ORAL Insomnia 03/03/19 21:15 03/10/19 21:14 Vancomycin HCl (Vanco rx to dose) 1 ea DAILY PRN MISC Per rx protocol 03/03/19 20:45 04/02/19 20:44 Vancomycin HCl 1.25 gm/Dextrose 275 ml @ 183.33 mls/ hr Q8H IVPB 03/09/19 03:00 03/14/19 02:59 03/09/19 11:19 Alexa Patterson M.D. Mar 10, 2019 12:15
[2019-03-10] MEDS ORDERED: LEVAQUIN750 MG ORAL (13:02)
[2019-03-10] MEDS ORDERED: VIBRAMYCIN100 MG ORAL (13:03)
--- NOTE | 2019-03-10 13:55 | Pulmonology Progress Note ---
Assessment/Plan Problems: (1) Cellulitis (2) Status post panniculectomy (3) COPD (chronic obstructive pulmonary disease) (4) Lumbar spondylosis (5) ADALBERTO (obstructive sleep apnea) (6) Abdominal pannus (7) Seizures (8) Cerebrovascular accident (9) Peripheral edema Assessment/Plan doing better pain is better controlled, continue fentanyl patch wound care respiratory treatment titrate fio2 to sat of 92% for PICC line placement Subjective ROS Limited/Unobtainable: No Constitutional: Reports: no symptoms HEENT: Repors: no symptoms Respiratory: Reports: no symptoms Allergies: Coded Allergies: ASPIRIN (Verified Allergy, Unknown, 07/14/18) KETOROLAC (Verified Allergy, Unknown, 07/14/18) PENICILLINS (Verified Allergy, Unknown, 12/23/18) tolerated Ancef on 08/2018 Objective Last 24 Hour Vital Signs Date Time Temp Pulse Resp B/P (MAP) Pulse Ox O2 Delivery O2 Flow Rate FiO2 03/10/19 12:00 98.6 82 19 137/84 (101) 95 03/10/19 10:34 79 117/72 03/10/19 09:00 Room Air 03/10/19 08:00 98.1 79 18 117/72 (87) 94 03/10/19 04:00 99.1 84 18 139/72 (94) 97 03/10/19 00:00 98.1 86 140/74 (96) 94 03/09/19 21:00 Room Air 03/09/19 20:08 95 Room Air 21 03/09/19 20:00 97.8 81 104/56 (72) 96 03/09/19 18:56 98.0 03/09/19 16:00 98.0 82 19 144/86 (105) Intake and Output 03/09/19 03/10/19 19:00 07:00 Intake Total 1220 ml Output Total 1600 ml 1600 ml Balance -380 ml -1600 ml Intake Oral 1220 ml Output Urine Total 1600 ml 1600 ml # Voids 2 General Appearance: WD/WN HEENT: normocephalic, anicteric Respiratory/Chest: chest wall non-tender, lungs clear Cardiovascular: normal peripheral pulses, normal rate Abdomen: normal bowel sounds, soft, non tender Extremities: no cyanosis, no clubbing Skin: no rash Laboratory Tests 03/10/19 05:58: White Blood Count 8.3, Red Blood Count 3.47L, Hemoglobin 9.8L, Hematocrit 31.1L , Mean Corpuscular Volume 89, Mean Corpuscular Hemoglobin 28.1, Mean Corpuscular Hemoglobin Concent 31.4L, Red Cell Distribution Width 14.2, Platelet Count 377, Mean Platelet Volume 4.2L, Neutrophils (%) (Auto) 61.6, Lymphocytes (%) (Auto) 26.9, Monocytes (%) (Auto) 7.3, Eosinophils (%) (Auto) 3.7H, Basophils (%) (Auto) 0.5, Sodium Level 135L, Potassium Level 3.9, Chloride Level 97L, Carbon Dioxide Level 35H, Anion Gap 3L, Blood Urea Nitrogen 14, Creatinine 0.9, Estimat Glomerular Filtration Rate > 60, Glucose Level 106, Calcium Level 9.3 Current Medications Medications (Trade) Dose Ordered Sig/Luis Route PRN Reason Start Time Stop Time Status Last Admin Dose Admin Acetaminophen (Tylenol) 650 mg Q4H PRN ORAL fever 03/03/19 21:15 04/02/19 21:14 Amlodipine Besylate (Norvasc) 5 mg DAILY ORAL 03/04/19 09:00 04/03/19 08:59 03/10/19 10:34 Ceftriaxone Sodium 2 gm/ Dextrose 55 ml @ 110 mls/hr Q24H IVPB 03/06/19 14:00 03/13/19 13:59 03/08/19 14:37 Chlorhexidine Gluconate (Ruby-Hex 2%) 1 applic DAILY@2000 TOPIC 03/09/19 20:00 04/08/19 19:59 03/09/19 21:36 Duloxetine HCl (Cymbalta) 30 mg DAILY ORAL 03/04/19 09:00 04/03/19 08:59 03/10/19 10:33 Fentanyl (Duragesic) 1 patch EVERY 72 HOURS TDERMAL 03/04/19 14:00 03/10/19 13:59 03/07/19 14:50 Fentanyl (Duragesic) 1 patch Q72H TDERMAL 03/10/19 14:00 03/17/19 13:59 Furosemide (Lasix) 10 mg Q8HR ORAL 03/03/19 22:00 04/02/19 21:59 03/10/19 05:08 Heparin Sodium (Porcine) (Heparin 5000 units/ml) 5,000 units EVERY 12 HOURS SUBQ 03/04/19 09:00 04/03/19 08:59 03/09/19 21:37 Hydromorphone HCl (Dilaudid) 3 mg Q3H PRN IVP Severe Pain (Pain Scale 7-10) 03/06/19 13:15 03/13/19 13:14 03/10/19 10:22 Levetiracetam (Keppra) 1,000 mg Q8HR ORAL 03/03/19 22:00 04/02/19 21:59 03/10/19 05:08 Miscellaneous Medication (fentaNYL Destruction) 1 ea Q72H MISC 03/07/19 13:59 04/06/19 13:58 03/07/19 13:59 Morphine Sulfate (Morphine Sulfate) 2 mg Q4H PRN IVP Moderate Pain (Pain Scale 4-6) 03/03/19 21:15 03/10/19 21:14 Naloxone HCl (Narcan) 0.1 mg PRN IV Sedation scale 3 or 4 03/04/19 13:00 04/03/19 12:59 Nitroglycerin (Ntg) 0.4 mg Q5M PRN SL Prn Chest Pain 03/03/19 21:15 04/02/19 21:14 Ondansetron HCl (Zofran) 4 mg Q6H PRN IVP Nausea & Vomiting 03/03/19 21:15 04/02/19 21:14 Polyethylene Glycol (Miralax) 17 gm DAILYPRN PRN ORAL Constipation 03/03/19 21:15 04/02/19 21:14 Temazepam (Restoril) 15 mg HSPRN PRN ORAL Insomnia 03/03/19 21:15 03/10/19 21:14 Vancomycin HCl (Vanco rx to dose) 1 ea DAILY PRN MISC Per rx protocol 03/03/19 20:45 04/02/19 20:44 Vancomycin HCl 1.25 gm/Dextrose 275 ml @ 183.33 mls/ hr Q8H IVPB 03/09/19 03:00 03/14/19 02:59 03/09/19 11:19 Bill Dixon MD Mar 10, 2019 13:55
[2019-03-10] MEDS: cefTRIAXone 2 GM in D5W 55 ML IVPB SCH (14:00)
[2019-03-10] MEDS: fentaNYL Destruction MISC SCH (14:19)
[2019-03-10] MEDS ORDERED: DILAUDID 44 MG/1 M3 PO (14:43)
[2019-03-10] MEDS: Levofloxacin 750mg tab ORAL SCH (18:39)
[2019-03-10] MEDS: Doxycycline Monohydrate 100mg ORAL SCH (18:39)
[2019-03-10] MEDS: Dyna-Hex 2% Top Sol 2oz TOPIC SCH (20:00)
[2019-03-11 04:00] VITALS: BP 128/74
[2019-03-11 08:00] VITALS: BP 132/84
[2019-03-11] MEDS: DULoxetine 30mg cap ORAL SCH (09:31)
[2019-03-11] MEDS: Heparin 5000 units/ml inj SUBQ SCH ×2 (09:32→22:05)
[2019-03-11] MEDS: Levofloxacin 750mg tab ORAL SCH (09:33)
[2019-03-11] MEDS: Doxycycline Monohydrate 100mg ORAL SCH ×2 (09:33→18:43)
--- NOTE | 2019-03-11 11:46 | Infectious Diseases Prog Note ---
Assessment/Plan Assessment/Plan Assessment: Surgical site infection -03/05 wound cx : S.aureus, diptheroids -03/04 wound cx MRSA (S tetracycline, bactrim, Vancomycin),K. pna (R amp; otherwise S) 02/01 SP Panniculectomy Afebrile No leukocytosis Recent hx of B/l Leg cellulitis and panniculitis 12/2018 - in the setting of chronic venous stasis, s/p Rx Recent seizure episode 11/2018 -had L side weakness and spasticity CVA HTN bipolar disorder w/ psychotic features tobacco abuse anxiety disorder chronic pain CHF seizure disorder COPD morbid obesity Dm2 HTN SNF resident Plan: -Continue PO Doxycycline 100mg bid #2 (abx d #04/10) and Levaquin 750mg qd #2 ( abx d# 04/10) for SSI -03/10 SP IV Vancomycin #8, Ceftriaxone #5 -03/06 SP Cefepime #4 -02/08 SP IV Vancomycin #8 -02/04 SP Aztreonam #4 -01/26 SP Fluconzole #5 - 01/07/19 SP IV Dapto d# 14 - 01/06/19 S/P Levofloxacin #7 - 12/25/18 sp Bactrim #4 and IV Ancef #3 for cellulitis -f/u cx -Monitor CBC/CMP, temperatures -wound cx -Sx f/u: -wound care per surgical team Thank you for this consultation. Will continue to follow along with you. Discussed with RN Subjective Allergies: Coded Allergies: ASPIRIN (Verified Allergy, Unknown, 07/14/18) KETOROLAC (Verified Allergy, Unknown, 07/14/18) PENICILLINS (Verified Allergy, Unknown, 12/23/18) tolerated Ancef on 08/2018 Subjective afebrile no leukocytosis Objective Vital Signs Last 24 Hour Vital Signs Date Time Temp Pulse Resp B/P (MAP) Pulse Ox O2 Delivery O2 Flow Rate FiO2 03/11/19 10:01 97.9 03/11/19 09:32 88 132/84 03/11/19 08:00 97.9 88 20 132/84 (100) 96 03/11/19 04:00 98.5 84 16 128/74 (92) 93 03/10/19 23:53 98.9 81 16 139/78 (98) 95 03/10/19 20:18 97.1 81 16 136/76 (96) 96 03/10/19 20:13 Room Air 03/10/19 16:00 98.6 87 19 126/78 (94) 94 03/10/19 12:00 98.6 82 19 137/84 (101) 95 Height (Feet): 6 Height (Inches): 0.00 Weight (Pounds): 450 Objective General Appearance: alert, moderate distress, obese Head: atraumatic Eyes: bilateral eye normal inspection ENT: normal ENT inspection, hearing grossly normal, normal voice Neck: normal inspection, full range of motion, supple, no bony tend Respiratory: normal inspection, lungs clear, normal breath sounds, no respiratory distress, no retraction, no wheezing Cardiovascular #1: regular rate, rhythm, no edema Gastrointestinal: soft, other - Large lower abdomen surgical wound with some drainage, overweight Genitourinary: no CVA tenderness Musculoskeletal: normal range of motion, swelling - Lower extremity Neurologic: normal inspection, alert, responsive, speech normal Psychiatric: normal inspection, judgement/insight normal, mood/affect normal, anxious Skin: other - Erythema abdominal wall erythema abdominal wall with drainage Current Medications Medications (Trade) Dose Ordered Sig/Luis Route PRN Reason Start Time Stop Time Status Last Admin Dose Admin Acetaminophen (Tylenol) 650 mg Q4H PRN ORAL fever 03/03/19 21:15 04/02/19 21:14 Amlodipine Besylate (Norvasc) 5 mg DAILY ORAL 03/04/19 09:00 04/03/19 08:59 03/11/19 09:32 Chlorhexidine Gluconate (Ruby-Hex 2%) 1 applic DAILY@1999 TOPIC 03/09/19 20:00 04/08/19 19:59 03/09/19 21:36 Doxycycline Monohydrate (Doxycycline Monohydrate) 100 mg BID ORAL 03/10/19 19:00 03/17/19 18:59 03/11/19 09:33 Duloxetine HCl (Cymbalta) 30 mg DAILY ORAL 03/04/19 09:00 04/03/19 08:59 03/11/19 09:31 Fentanyl (Duragesic) 1 patch Q72H TDERMAL 03/10/19 14:00 03/17/19 13:59 03/10/19 14:10 Furosemide (Lasix) 10 mg Q8HR ORAL 03/03/19 22:00 04/02/19 21:59 03/11/19 06:19 Heparin Sodium (Porcine) (Heparin 5000 units/ml) 5,000 units EVERY 12 HOURS SUBQ 03/04/19 09:00 04/03/19 08:59 03/11/19 09:32 Hydromorphone HCl (Dilaudid) 3 mg Q3H PRN IVP Severe Pain (Pain Scale 7-10) 03/06/19 13:15 03/13/19 13:14 03/11/19 09:31 Levetiracetam (Keppra) 1,000 mg Q8HR ORAL 03/03/19 22:00 04/02/19 21:59 03/11/19 06:19 Levofloxacin (Levaquin) 750 mg DAILY ORAL 03/10/19 19:00 03/17/19 18:59 03/11/19 09:33 Miscellaneous Medication (fentaNYL Destruction) 1 ea Q72H MISC 03/07/19 13:59 04/06/19 13:58 03/10/19 14:19 Naloxone HCl (Narcan) 0.1 mg PRN IV Sedation scale 3 or 4 03/04/19 13:00 04/03/19 12:59 Nitroglycerin (Ntg) 0.4 mg Q5M PRN SL Prn Chest Pain 03/03/19 21:15 04/02/19 21:14 Ondansetron HCl (Zofran) 4 mg Q6H PRN IVP Nausea & Vomiting 03/03/19 21:15 04/02/19 21:14 Polyethylene Glycol (Miralax) 17 gm DAILYPRN PRN ORAL Constipation 03/03/19 21:15 04/02/19 21:14 Vancomycin HCl (Vanco rx to dose) 1 ea DAILY PRN MISC Per rx protocol 03/03/19 20:45 04/02/19 20:44 Alexa Patterson M.D. Mar 11, 2019 11:46
[2019-03-11 12:00] VITALS: BP 132/73
--- NOTE | 2019-03-11 13:35 | Pulmonology Progress Note ---
Assessment/Plan Problems: (1) Cellulitis (2) Status post panniculectomy (3) COPD (chronic obstructive pulmonary disease) (4) Lumbar spondylosis (5) ADALBERTO (obstructive sleep apnea) (6) Abdominal pannus (7) Seizures (8) Cerebrovascular accident (9) Peripheral edema Assessment/Plan doing better pain is better controlled, continue fentanyl patch wound care respiratory treatment titrate fio2 to sat of 92% dc planning in progress Subjective ROS Limited/Unobtainable: No Constitutional: Reports: no symptoms HEENT: Repors: no symptoms Respiratory: Reports: no symptoms Allergies: Coded Allergies: ASPIRIN (Verified Allergy, Unknown, 07/14/18) KETOROLAC (Verified Allergy, Unknown, 07/14/18) PENICILLINS (Verified Allergy, Unknown, 12/23/18) tolerated Ancef on 08/2018 Objective Last 24 Hour Vital Signs Date Time Temp Pulse Resp B/P (MAP) Pulse Ox O2 Delivery O2 Flow Rate FiO2 03/11/19 10:01 97.9 03/11/19 09:32 88 132/84 03/11/19 08:00 97.9 88 20 132/84 (100) 96 03/11/19 04:00 98.5 84 16 128/74 (92) 93 03/10/19 23:53 98.9 81 16 139/78 (98) 95 03/10/19 20:18 97.1 81 16 136/76 (96) 96 03/10/19 20:13 Room Air 03/10/19 16:00 98.6 87 19 126/78 (94) 94 Intake and Output 03/10/19 03/11/19 19:00 07:00 Intake Total 2400 ml Output Total 1000 ml 1200 ml Balance 1400 ml -1200 ml Intake Oral 2400 ml Output Urine Total 1000 ml 1200 ml # Bowel Movements 2 General Appearance: WD/WN HEENT: normocephalic, atraumatic Respiratory/Chest: chest wall non-tender, lungs clear Cardiovascular: normal peripheral pulses, regular rhythm Abdomen: normal bowel sounds, no organomegaly, no scars Extremities: no clubbing Skin: no rash Current Medications Medications (Trade) Dose Ordered Sig/Luis Route PRN Reason Start Time Stop Time Status Last Admin Dose Admin Acetaminophen (Tylenol) 650 mg Q4H PRN ORAL fever 03/03/19 21:15 9/6/19 21:14 Amlodipine Besylate (Norvasc) 5 mg DAILY ORAL 03/04/19 09:00 04/03/19 08:59 03/11/19 09:32 Chlorhexidine Gluconate (Ruby-Hex 2%) 1 applic DAILY@2000 TOPIC 03/09/19 20:00 04/08/19 19:59 03/09/19 21:36 Doxycycline Monohydrate (Doxycycline Monohydrate) 100 mg BID ORAL 03/10/19 19:00 03/17/19 18:59 03/11/19 09:33 Duloxetine HCl (Cymbalta) 30 mg DAILY ORAL 03/04/19 09:00 04/03/19 08:59 03/11/19 09:31 Fentanyl (Duragesic) 1 patch Q72H TDERMAL 03/10/19 14:00 03/17/19 13:59 03/10/19 14:10 Furosemide (Lasix) 10 mg Q8HR ORAL 03/03/19 22:00 04/02/19 21:59 03/11/19 06:19 Heparin Sodium (Porcine) (Heparin 5000 units/ml) 5,000 units EVERY 12 HOURS SUBQ 03/04/19 09:00 04/03/19 08:59 03/11/19 09:32 Hydromorphone HCl (Dilaudid) 3 mg Q3H PRN IVP Severe Pain (Pain Scale 7-10) 03/06/19 13:15 03/13/19 13:14 03/11/19 12:37 Levetiracetam (Keppra) 1,000 mg Q8HR ORAL 03/03/19 22:00 04/02/19 21:59 03/11/19 06:19 Levofloxacin (Levaquin) 750 mg DAILY ORAL 03/10/19 19:00 03/17/19 18:59 03/11/19 09:33 Miscellaneous Medication (fentaNYL Destruction) 1 ea Q72H MISC 03/07/19 13:59 04/06/19 13:58 03/10/19 14:19 Naloxone HCl (Narcan) 0.1 mg PRN IV Sedation scale 3 or 4 03/04/19 13:00 04/03/19 12:59 Nitroglycerin (Ntg) 0.4 mg Q5M PRN SL Prn Chest Pain 03/03/19 21:15 04/02/19 21:14 Ondansetron HCl (Zofran) 4 mg Q6H PRN IVP Nausea & Vomiting 03/03/19 21:15 04/02/19 21:14 Polyethylene Glycol (Miralax) 17 gm DAILYPRN PRN ORAL Constipation 03/03/19 21:15 04/02/19 21:14 Vancomycin HCl (Vanco rx to dose) 1 ea DAILY PRN MISC Per rx protocol 03/03/19 20:45 04/02/19 20:44 Bill Dixon MD Mar 11, 2019 13:35
[2019-03-11 16:00] VITALS: BP 116/67
--- NOTE | 2019-03-11 17:45 | Progress Note ---
DATE: 03/11/2019 SUBJECTIVE: This is a 53-year-old male patient with cellulitis. He is very confused and disorganized. He has no logical plan for his own self-care. He is irritable and depressed. DIAGNOSIS: Major depressive disorder, mild, recurrent, without psychotic features. PLAN: Treat him with Cymbalta 30 mg a day. Provided him with 20 minutes of cognitive behavioral therapy to help him identify automatic negative thoughts and help him convert those negative thoughts to more positive thoughts to reduce depression, anxiety, and mood lability. Chart reviewed. Discussed with staff. Seen and assessed at bedside. Laney Mcghee M.D. DR: LYNDON/DANISH JOB#: [id number] CC:
[2019-03-11] MEDS: Dyna-Hex 2% Top Sol 2oz TOPIC SCH (19:57)
[2019-03-11 20:00] VITALS: BP 128/75
--- NOTE | 2019-03-11 22:40 | General Progress Note ---
Assessment/Plan Problem List: (1) Seizures ICD Codes: R56.9 - Unspecified convulsions SNOMED: 06307691 (2) Cellulitis ICD Codes: L03.90 - Cellulitis, unspecified SNOMED: 610257752 (3) COPD (chronic obstructive pulmonary disease) ICD Codes: J44.9 - Chronic obstructive pulmonary disease, unspecified SNOMED: 09806631 (4) Morbid obesity ICD Codes: E66.01 - Morbid (severe) obesity due to excess calories SNOMED: 869279669 (5) Lumbar spondylosis ICD Codes: M47.816 - Spondylosis without myelopathy or radiculopathy, lumbar region SNOMED: 483806660 (6) Right heart failure ICD Codes: I50.810 - Right heart failure, unspecified SNOMED: 057482051 Status: stable, progressing Status Narrative obesity cellulitis afebrile reviewed chart and labs and mes no acute events copd no wheezing Subjective ROS Limited/Unobtainable: Yes Allergies: Coded Allergies: ASPIRIN (Verified Allergy, Unknown, 07/14/18) KETOROLAC (Verified Allergy, Unknown, 07/14/18) PENICILLINS (Verified Allergy, Unknown, 12/23/18) tolerated Ancef on 08/2018 Objective Last 24 Hour Vital Signs Date Time Temp Pulse Resp B/P (MAP) Pulse Ox O2 Delivery O2 Flow Rate FiO2 03/11/19 20:00 98.0 79 18 128/75 (92) 98 03/11/19 20:00 Room Air 03/11/19 16:00 98.8 81 20 116/67 (83) 95 03/11/19 12:00 99.2 85 20 132/73 (92) 95 03/11/19 10:01 97.9 03/11/19 09:32 88 132/84 03/11/19 09:00 Room Air 03/11/19 08:00 97.9 88 20 132/84 (100) 96 03/11/19 04:00 98.5 84 16 128/74 (92) 93 03/10/19 23:53 98.9 81 16 139/78 (98) 95 Intake and Output 03/10/19 03/11/19 19:00 07:00 Intake Total 2400 ml Output Total 1000 ml 1200 ml Balance 1400 ml -1200 ml Intake Oral 2400 ml Output Urine Total 1000 ml 1200 ml # Bowel Movements 2 Height (Feet): 6 Height (Inches): 0.00 Weight (Pounds): 450 Neck: supple Cardiovascular: normal peripheral pulses Respiratory/Chest: lungs clear Abdomen: soft Vadim Tang MD Mar 11, 2019 22:40
[2019-03-12 08:00] VITALS: BP 138/79
--- NOTE | 2019-03-12 08:30 | Progress Note ---
DATE: 03/12/2019 SUBJECTIVE: This is a 53-year-old male patient with cellulitis. He still has some mood lability, anxiety, depression, but worsened by stress of his medical illness and he still has anxiety, depression, and mood lability. DIAGNOSIS: Major depressive disorder, mild, recurrent, rule out generalized anxiety disorder. PLAN: Treat the patient with Cymbalta 30 mg a day. Provided him with 20 minutes of reality-based supportive psychotherapy. Chart reviewed. Discussed with staff. Seen and assessed in his room. Laney Mcghee M.D. DR: GUTIERREZ JOB#: [id number] CC:
[2019-03-12] MEDS: Levofloxacin 750mg tab ORAL SCH (08:55)
[2019-03-12] MEDS: DULoxetine 30mg cap ORAL SCH (08:55)
[2019-03-12] MEDS: Doxycycline Monohydrate 100mg ORAL SCH ×2 (08:55→16:43)
[2019-03-12] MEDS: Heparin 5000 units/ml inj SUBQ SCH ×2 (08:58→20:40)
--- NOTE | 2019-03-12 09:31 | Pulmonology Progress Note ---
Assessment/Plan Assessment/Plan ASSESSMENT surgical site infection/cellulitis dehiscence of surgical wound s/p panniculectomy COPD ADALBERTO Morbid obesity Hx of CVA peripheral edema HTN seizure disorder tobacco abuse major depressive disorder possible generalized anxiety disorder PLAN OF CARE [facility] floor abx as pr ID recs on Doxy and Levaquin, will need 2 wks of abx-per ID O2 HHN prn BiPAP at HS and prn wound care plastic surgeon seen and evaluated , no need for surgical intervention, continue abx and wound care continue Lasix, monitor volumes, renal parameters lytes, BP management with CCB seizure precautions, continue Keppra, no evidence of seizure activity while in the hospital guidance counselor on smoking cessation DVT prophylaxis pain management bowel regimen case discussed and evaluated by supervising physician Subjective Allergies: Coded Allergies: ASPIRIN (Verified Allergy, Unknown, 07/14/18) KETOROLAC (Verified Allergy, Unknown, 07/14/18) PENICILLINS (Verified Allergy, Unknown, 12/23/18) tolerated Ancef on 08/2018 Subjective afebrile, no leukocytosis Objective Last 24 Hour Vital Signs Date Time Temp Pulse Resp B/P (MAP) Pulse Ox O2 Delivery O2 Flow Rate FiO2 03/12/19 08:55 80 138/79 03/12/19 08:00 98.0 80 17 138/79 (98) 98 03/11/19 20:00 98.0 79 18 128/75 (92) 98 03/11/19 20:00 Room Air 03/11/19 16:00 98.8 81 20 116/67 (83) 95 03/11/19 12:00 99.2 85 20 132/73 (92) 95 03/11/19 10:01 97.9 03/11/19 09:32 88 132/84 Intake and Output 03/11/19 03/12/19 18:59 06:59 Intake Total 960 ml Output Total 2600 ml 1300 ml Balance -1640 ml -1300 ml Intake Oral 960 ml Output Urine Total 2600 ml 1300 ml General Appearance: no acute distress, other - morbidly obese male HEENT: normocephalic, atraumatic, anicteric, mucous membranes moist, PERRL Respiratory/Chest: lungs clear - with moderate air exchange , no respiratory distress, no accessory muscle use Cardiovascular: normal rate Abdomen: normal bowel sounds, soft, non tender - obese Extremities: other - +2 eema BLE Skin: other - lower abdomen surgical incision with few dehiscence sites, minimal amount of purulent drainange, Neurologic/Psychiatric: abnormal gait, alert, oriented x 3, responsive, depressed affect, other - Left side weakness and spasticity Current Medications Medications (Trade) Dose Ordered Sig/Luis Route PRN Reason Start Time Stop Time Status Last Admin Dose Admin Acetaminophen (Tylenol) 650 mg Q4H PRN ORAL fever 03/03/19 21:15 04/02/19 21:14 Amlodipine Besylate (Norvasc) 5 mg DAILY ORAL 03/04/19 09:00 04/03/19 08:59 03/12/19 08:55 Chlorhexidine Gluconate (Ruby-Hex 2%) 1 applic DAILY@1999 TOPIC 03/09/19 20:00 04/08/19 19:59 03/09/19 21:36 Doxycycline Monohydrate (Doxycycline Monohydrate) 100 mg BID ORAL 03/10/19 19:00 03/17/19 18:59 03/12/19 08:55 Duloxetine HCl (Cymbalta) 30 mg DAILY ORAL 03/04/19 09:00 04/03/19 08:59 03/12/19 08:55 Fentanyl (Duragesic) 1 patch Q72H TDERMAL 03/10/19 14:00 03/17/19 13:59 03/10/19 14:10 Furosemide (Lasix) 10 mg Q8HR ORAL 03/03/19 22:00 04/02/19 21:59 03/12/19 05:44 Heparin Sodium (Porcine) (Heparin 5000 units/ml) 5,000 units EVERY 12 HOURS SUBQ 03/04/19 09:00 04/03/19 08:59 03/12/19 08:58 Hydromorphone HCl (Dilaudid) 3 mg Q3H PRN IVP Severe Pain (Pain Scale 7-10) 03/06/19 13:15 03/13/19 13:14 03/12/19 05:45 Levetiracetam (Keppra) 1,000 mg Q8HR ORAL 03/03/19 22:00 04/02/19 21:59 03/12/19 05:44 Levofloxacin (Levaquin) 750 mg DAILY ORAL 03/10/19 19:00 03/17/19 18:59 03/12/19 08:55 Miscellaneous Medication (fentaNYL Destruction) 1 ea Q72H MISC 03/07/19 13:59 04/06/19 13:58 03/10/19 14:19 Naloxone HCl (Narcan) 0.1 mg PRN IV Sedation scale 3 or 4 03/04/19 13:00 04/03/19 12:59 Nitroglycerin (Ntg) 0.4 mg Q5M PRN SL Prn Chest Pain 03/03/19 21:15 04/02/19 21:14 Ondansetron HCl (Zofran) 4 mg Q6H PRN IVP Nausea & Vomiting 03/03/19 21:15 04/02/19 21:14 Polyethylene Glycol (Miralax) 17 gm DAILYPRN PRN ORAL Constipation 03/03/19 21:15 04/02/19 21:14 Kiera Vivar NP Mar 12, 2019 09:31
[2019-03-12 12:00] VITALS: BP 140/75
--- NOTE | 2019-03-12 15:23 | Infectious Diseases Prog Note ---
Assessment/Plan Assessment/Plan Assessment: Surgical site infection -03/05 wound cx : S.aureus, diptheroids -03/04 wound cx MRSA (S tetracycline, bactrim, Vancomycin),K. pna (R amp; otherwise S) 02/01 SP Panniculectomy Afebrile No leukocytosis Recent hx of B/l Leg cellulitis and panniculitis 12/2018 - in the setting of chronic venous stasis, s/p Rx Recent seizure episode 11/2018 -had L side weakness and spasticity CVA HTN bipolar disorder w/ psychotic features tobacco abuse anxiety disorder chronic pain CHF seizure disorder COPD morbid obesity Dm2 HTN SNF resident Plan: -Continue PO Doxycycline 100mg bid #3 (abx d #05/10) and Levaquin 750mg qd #3 ( abx d# 05/10) for SSI -03/10 SP IV Vancomycin #8, Ceftriaxone #5 -03/06 SP Cefepime #4 -02/08 SP IV Vancomycin #8 -02/04 SP Aztreonam #4 -01/26 SP Fluconazole #5 - 01/07/19 SP IV Dapto d# 14 - 01/06/19 S/P Levofloxacin #7 - 12/25/18 sp Bactrim #4 and IV Ancef #3 for cellulitis -f/u cx -Monitor CBC/CMP, temperatures -wound cx -Sx f/u: -wound care per surgical team Thank you for this consultation. Will continue to follow along with you. Discussed with RN Subjective Allergies: Coded Allergies: ASPIRIN (Verified Allergy, Unknown, 07/14/18) KETOROLAC (Verified Allergy, Unknown, 07/14/18) PENICILLINS (Verified Allergy, Unknown, 12/23/18) tolerated Ancef on 08/2018 Subjective afebrile no leukocytosis Objective Vital Signs Last 24 Hour Vital Signs Date Time Temp Pulse Resp B/P (MAP) Pulse Ox O2 Delivery O2 Flow Rate FiO2 03/12/19 14:17 97.2 03/12/19 12:00 97.2 82 17 140/75 (96) 99 03/12/19 09:00 Room Air 03/12/19 08:55 80 138/79 03/12/19 08:00 98.0 80 17 138/79 (98) 98 03/11/19 20:00 98.0 79 18 128/75 (92) 98 03/11/19 20:00 Room Air 03/11/19 16:00 98.8 81 20 116/67 (83) 95 Height (Feet): 6 Height (Inches): 0.00 Weight (Pounds): 450 Objective General Appearance: alert, moderate distress, obese Head: atraumatic Eyes: bilateral eye normal inspection ENT: normal ENT inspection, hearing grossly normal, normal voice Neck: normal inspection, full range of motion, supple, no bony tend Respiratory: normal inspection, lungs clear, normal breath sounds, no respiratory distress, no retraction, no wheezing Cardiovascular #1: regular rate, rhythm, no edema Gastrointestinal: soft, other - Large lower abdomen surgical wound with some drainage, overweight Genitourinary: no CVA tenderness Musculoskeletal: normal range of motion, swelling - Lower extremity Neurologic: normal inspection, alert, responsive, speech normal Psychiatric: normal inspection, judgement/insight normal, mood/affect normal, anxious Skin: other - Erythema abdominal wall erythema abdominal wall with drainage Current Medications Medications (Trade) Dose Ordered Sig/Luis Route PRN Reason Start Time Stop Time Status Last Admin Dose Admin Acetaminophen (Tylenol) 650 mg Q4H PRN ORAL fever 03/03/19 21:15 04/02/19 21:14 Amlodipine Besylate (Norvasc) 5 mg DAILY ORAL 03/04/19 09:00 04/03/19 08:59 03/12/19 08:55 Chlorhexidine Gluconate (Ruby-Hex 2%) 1 applic DAILY@2000 TOPIC 03/09/19 20:00 04/08/19 19:59 03/09/19 21:36 Doxycycline Monohydrate (Doxycycline Monohydrate) 100 mg BID ORAL 03/10/19 19:00 03/17/19 18:59 03/12/19 08:55 Duloxetine HCl (Cymbalta) 30 mg DAILY ORAL 03/04/19 09:00 04/03/19 08:59 03/12/19 08:55 Fentanyl (Duragesic) 1 patch Q72H TDERMAL 03/10/19 14:00 03/17/19 13:59 03/10/19 14:10 Furosemide (Lasix) 10 mg Q8HR ORAL 03/03/19 22:00 04/02/19 21:59 03/12/19 13:45 Heparin Sodium (Porcine) (Heparin 5000 units/ml) 5,000 units EVERY 12 HOURS SUBQ 03/04/19 09:00 04/03/19 08:59 03/12/19 08:58 Hydromorphone HCl (Dilaudid) 3 mg Q3H PRN IVP Severe Pain (Pain Scale 7-10) 03/06/19 13:15 03/13/19 13:14 03/12/19 13:47 Levetiracetam (Keppra) 1,000 mg Q8HR ORAL 03/03/19 22:00 04/02/19 21:59 03/12/19 13:45 Levofloxacin (Levaquin) 750 mg DAILY ORAL 03/10/19 19:00 03/17/19 18:59 03/12/19 08:55 Miscellaneous Medication (fentaNYL Destruction) 1 ea Q72H MISC 03/07/19 13:59 04/06/19 13:58 03/10/19 14:19 Naloxone HCl (Narcan) 0.1 mg PRN IV Sedation scale 3 or 4 03/04/19 13:00 04/03/19 12:59 Nitroglycerin (Ntg) 0.4 mg Q5M PRN SL Prn Chest Pain 03/03/19 21:15 04/02/19 21:14 Ondansetron HCl (Zofran) 4 mg Q6H PRN IVP Nausea & Vomiting 03/03/19 21:15 04/02/19 21:14 Polyethylene Glycol (Miralax) 17 gm DAILYPRN PRN ORAL Constipation 03/03/19 21:15 04/02/19 21:14 Alxea Patterson M.D. Mar 12, 2019 15:23
[2019-03-12 16:00] VITALS: BP 143/78
[2019-03-12 20:00] VITALS: BP 130/72
[2019-03-12] MEDS: Dyna-Hex 2% Top Sol 2oz TOPIC SCH (20:00)
--- NOTE | 2019-03-12 20:57 | General Progress Note ---
Assessment/Plan Problem List: (1) Seizures ICD Codes: R56.9 - Unspecified convulsions SNOMED: 57539924 (2) Cellulitis ICD Codes: L03.90 - Cellulitis, unspecified SNOMED: 128779220 (3) COPD (chronic obstructive pulmonary disease) ICD Codes: J44.9 - Chronic obstructive pulmonary disease, unspecified SNOMED: 57977072 (4) Morbid obesity ICD Codes: E66.01 - Morbid (severe) obesity due to excess calories SNOMED: 401118969 (5) Lumbar spondylosis ICD Codes: M47.816 - Spondylosis without myelopathy or radiculopathy, lumbar region SNOMED: 430540240 (6) Right heart failure ICD Codes: I50.810 - Right heart failure, unspecified SNOMED: 541748532 Status: stable, progressing Assessment/Plan: obesity copd siezure no wheezing afebrile vitals stable no acute events Subjective ROS Limited/Unobtainable: Yes Allergies: Coded Allergies: ASPIRIN (Verified Allergy, Unknown, 07/14/18) KETOROLAC (Verified Allergy, Unknown, 07/14/18) PENICILLINS (Verified Allergy, Unknown, 12/23/18) tolerated Ancef on 08/2018 Objective Last 24 Hour Vital Signs Date Time Temp Pulse Resp B/P (MAP) Pulse Ox O2 Delivery O2 Flow Rate FiO2 03/12/19 17:14 97.4 03/12/19 16:00 97.4 82 17 143/78 (99) 98 03/12/19 12:00 97.2 82 17 140/75 (96) 99 03/12/19 09:00 Room Air 03/12/19 08:55 80 138/79 03/12/19 08:00 98.0 80 17 138/79 (98) 98 Intake and Output 03/11/19 03/12/19 19:00 07:00 Intake Total 960 ml Output Total 2600 ml 1300 ml Balance -1640 ml -1300 ml Intake Oral 960 ml Output Urine Total 2600 ml 1300 ml Height (Feet): 6 Height (Inches): 0.00 Weight (Pounds): 450 Neck: supple Cardiovascular: normal rate Respiratory/Chest: normal breath sounds Vadim Tang MD Mar 12, 2019 20:57
[2019-03-13 01:50] VITALS: BP 119/81
[2019-03-13 04:00] VITALS: BP 124/72
[2019-03-13 08:00] VITALS: BP 136/79
[2019-03-13] MEDS ORDERED: DULoxetine 30mg cap ORAL SCH (10:00)
[2019-03-13] MEDS ORDERED: Doxycycline Monohydrate 100mg ORAL SCH (10:00)
[2019-03-13] MEDS ORDERED: Heparin 5000 units/ml inj SUBQ SCH (10:00)
[2019-03-13] MEDS ORDERED: Levofloxacin 750mg tab ORAL SCH (10:00)
--- NOTE | 2019-03-13 10:27 | Pulmonology Progress Note ---
Assessment/Plan Assessment/Plan ASSESSMENT surgical site infection/cellulitis dehiscence of surgical wound s/p panniculectomy COPD ADALBERTO morbid obesity Hx of CVA peripheral edema HTN seizure disorder tobacco abuse major depressive disorder possible generalized anxiety disorder PLAN OF CARE MS floor abx as pr ID recs on Doxy and Levaquin, will need 2 wks of abx-per ID O2 HHN prn BiPAP at HS and prn wound care plastic surgeon seen and evaluated , no need for surgical intervention, continue abx and wound care continue Lasix, monitor volumes, renal parameters lytes, BP management with CCB seizure precautions, continue Keppra, no evidence of seizure activity while in the hospital probation counselor on smoking cessation DVT prophylaxis pain management bowel regimen dc plan to SNF for wound care and oral abx to complete the course case discussed and evaluated by supervising physician Subjective Allergies: Coded Allergies: ASPIRIN (Verified Allergy, Unknown, 07/14/18) KETOROLAC (Verified Allergy, Unknown, 07/14/18) PENICILLINS (Verified Allergy, Unknown, 12/23/18) tolerated Ancef on 08/2018 Subjective remains afebrile, no leukocytosis Objective Last 24 Hour Vital Signs Date Time Temp Pulse Resp B/P (MAP) Pulse Ox O2 Delivery O2 Flow Rate FiO2 03/13/19 09:26 97.2 03/13/19 09:00 Room Air 03/13/19 08:00 97.2 86 16 136/79 (98) 96 03/13/19 04:00 98.2 93 20 124/72 (89) 95 03/13/19 01:50 98.3 97 20 119/81 (94) 95 03/12/19 21:00 Room Air 03/12/19 20:00 98.4 69 20 130/72 (91) 95 03/12/19 17:14 97.4 03/12/19 16:00 97.4 82 17 143/78 (99) 98 03/12/19 12:00 97.2 82 17 140/75 (96) 99 Intake and Output 03/12/19 03/13/19 19:00 07:00 Intake Total 1000 ml 480 ml Output Total 1800 ml 1500 ml Balance -800 ml -1020 ml Intake Oral 480 ml Other 1000 ml Output Urine Total 1800 ml 1500 ml Objective General Appearance: no acute distress, morbidly obese male HEENT: normocephalic, atraumatic, anicteric, mucous membranes moist, PERRL Respiratory/Chest: lungs clear - with moderate air exchange , no respiratory distress, no accessory muscle use Cardiovascular: normal rate Abdomen: normal bowel sounds, soft, non tender - obese Extremities: other - +2 edema BLE Skin: lower abdomen surgical incision with few dehiscence sites, minimal amount of purulent drainage, Neurologic/Psychiatric: abnormal gait, alert, oriented x 3, responsive, depressed affect, left side weakness and spasticity Current Medications Medications (Trade) Dose Ordered Sig/Luis Route PRN Reason Start Time Stop Time Status Last Admin Dose Admin Acetaminophen (Tylenol) 650 mg Q4H PRN ORAL fever 03/03/19 21:15 04/02/19 21:14 Amlodipine Besylate (Norvasc) 5 mg DAILY ORAL 03/14/19 09:00 04/13/19 08:59 Amlodipine Besylate (Norvasc) 5 mg ONCE ORAL 03/13/19 10:00 03/13/19 11:00 Chlorhexidine Gluconate (Ruby-Hex 2%) 1 applic DAILY@2000 TOPIC 03/09/19 20:00 04/08/19 19:59 03/12/19 20:00 Doxycycline Monohydrate (Doxycycline Monohydrate) 100 mg ONCE ORAL 03/13/19 10:00 03/13/19 11:00 Duloxetine HCl (Cymbalta) 30 mg DAILY ORAL 03/14/19 09:00 04/13/19 08:59 Duloxetine HCl (Cymbalta) 30 mg ONCE ORAL 03/13/19 10:00 03/13/19 11:00 Fentanyl (Duragesic) 1 patch Q72H TDERMAL 03/10/19 14:00 03/17/19 13:59 03/10/19 14:10 Furosemide (Lasix) 10 mg Q8HR ORAL 03/13/19 07:00 04/12/19 06:59 03/13/19 07:00 Heparin Sodium (Porcine) (Heparin 5000 units/ml) 5,000 units EVERY 12 HOURS SUBQ 03/13/19 21:00 04/12/19 20:59 Heparin Sodium (Porcine) (Heparin 5000 units/ml) 5,000 units ONCE SUBQ 03/13/19 10:00 03/13/19 11:00 Hydromorphone HCl (Dilaudid) 3 mg Q3H PRN IVP Severe Pain (Pain Scale 7-10) 03/13/19 10:00 03/20/19 06:59 Levetiracetam (Keppra) 1,000 mg Q8HR ORAL 03/13/19 07:00 04/12/19 06:59 03/13/19 07:00 Levofloxacin (Levaquin) 750 mg DAILY ORAL 03/14/19 09:00 03/17/19 08:59 Levofloxacin (Levaquin) 750 mg ONCE ORAL 03/13/19 10:00 03/13/19 11:00 Miscellaneous Medication (fentaNYL Destruction) 1 ea Q72H MISC 03/07/19 13:59 04/06/19 13:58 03/10/19 14:19 Naloxone HCl (Narcan) 0.1 mg PRN IV Sedation scale 3 or 4 03/04/19 13:00 04/03/19 12:59 Nitroglycerin (Ntg) 0.4 mg Q5M PRN SL Prn Chest Pain 03/03/19 21:15 04/02/19 21:14 Ondansetron HCl (Zofran) 4 mg Q6H PRN IVP Nausea & Vomiting 03/03/19 21:15 04/02/19 21:14 Polyethylene Glycol (Miralax) 17 gm DAILYPRN PRN ORAL Constipation 03/03/19 21:15 04/02/19 21:14 Kiera Vivar NP Mar 13, 2019 10:27
[2019-03-13 12:00] VITALS: BP 138/73
--- NOTE | 2019-03-13 12:02 | Infectious Diseases Prog Note ---
Assessment/Plan Assessment/Plan Surgical site infection -03/05 wound cx : S.aureus, diptheroids -03/04 wound cx MRSA (S tetracycline, bactrim, Vancomycin),K. pna (R amp; otherwise S) 02/01 SP Panniculectomy Afebrile No leukocytosis Recent hx of B/l Leg cellulitis and panniculitis 12/2018 - in the setting of chronic venous stasis, s/p Rx Recent seizure episode 11/2018 -had L side weakness and spasticity CVA HTN bipolar disorder w/ psychotic features tobacco abuse anxiety disorder chronic pain CHF seizure disorder COPD morbid obesity Dm2 HTN SNF resident Plan: -Continue PO Doxycycline 100mg bid #4 (abx d #06/10) and Levaquin 750mg qd #4 ( abx d# 06/10) for SSI -03/10 SP IV Vancomycin #8, Ceftriaxone #5 -03/06 SP Cefepime #4 -02/08 SP IV Vancomycin #8 -02/04 SP Aztreonam #4 -01/26 SP Fluconazole #5 - 01/07/19 SP IV Dapto d# 14 - 01/06/19 S/P Levofloxacin #7 - 12/25/18 sp Bactrim #4 and IV Ancef #3 for cellulitis -f/u cx -Monitor CBC/CMP, temperatures -wound cx -Sx f/u: -wound care per surgical team Thank you for this consultation. Will continue to follow along with you. Subjective Allergies: Coded Allergies: ASPIRIN (Verified Allergy, Unknown, 07/14/18) KETOROLAC (Verified Allergy, Unknown, 07/14/18) PENICILLINS (Verified Allergy, Unknown, 12/23/18) tolerated Ancef on 08/2018 Subjective Aferbile No Leukocytosis JANEE Objective Vital Signs Last 24 Hour Vital Signs Date Time Temp Pulse Resp B/P (MAP) Pulse Ox O2 Delivery O2 Flow Rate FiO2 03/13/19 11:03 97.2 03/13/19 10:31 86 136/79 03/13/19 09:26 97.2 03/13/19 09:00 Room Air 03/13/19 08:00 97.2 86 16 136/79 (98) 96 03/13/19 04:00 98.2 93 20 124/72 (89) 95 03/13/19 01:50 98.3 97 20 119/81 (94) 95 03/12/19 21:00 Room Air 03/12/19 20:00 98.4 69 20 130/72 (91) 95 03/12/19 17:14 97.4 03/12/19 16:00 97.4 82 17 143/78 (99) 98 Height (Feet): 6 Height (Inches): 0.00 Weight (Pounds): 450 Objective General Appearance: NAD HEENT, NCAT, MMM, EOMI Respiratory: lungs clear, normal breath sounds, Cardiovascular: regular rate, rhythm, S1, S2 Gastrointestinal: soft, other - Large lower abdomen surgical wound with some drainage, overweight Current Medications Medications (Trade) Dose Ordered Sig/Luis Route PRN Reason Start Time Stop Time Status Last Admin Dose Admin Acetaminophen (Tylenol) 650 mg Q4H PRN ORAL fever 03/03/19 21:15 04/02/19 21:14 Amlodipine Besylate (Norvasc) 5 mg DAILY ORAL 03/14/19 09:00 04/13/19 08:59 Chlorhexidine Gluconate (Ruby-Hex 2%) 1 applic DAILY@2000 TOPIC 03/09/19 20:00 04/08/19 19:59 03/12/19 20:00 Duloxetine HCl (Cymbalta) 30 mg DAILY ORAL 03/14/19 09:00 04/13/19 08:59 Fentanyl (Duragesic) 1 patch Q72H TDERMAL 03/10/19 14:00 03/17/19 13:59 03/10/19 14:10 Furosemide (Lasix) 10 mg Q8HR ORAL 03/13/19 07:00 04/12/19 06:59 03/13/19 07:00 Heparin Sodium (Porcine) (Heparin 5000 units/ml) 5,000 units EVERY 12 HOURS SUBQ 03/13/19 21:00 04/12/19 20:59 Hydromorphone HCl (Dilaudid) 3 mg Q3H PRN IVP Severe Pain (Pain Scale 7-10) 03/13/19 10:00 03/20/19 06:59 03/13/19 10:33 Levetiracetam (Keppra) 1,000 mg Q8HR ORAL 03/13/19 07:00 04/12/19 06:59 03/13/19 07:00 Levofloxacin (Levaquin) 750 mg DAILY ORAL 03/14/19 09:00 03/17/19 08:59 Miscellaneous Medication (fentaNYL Destruction) 1 ea Q72H MISC 03/07/19 13:59 04/06/19 13:58 03/10/19 14:19 Naloxone HCl (Narcan) 0.1 mg PRN IV Sedation scale 3 or 4 03/04/19 13:00 04/03/19 12:59 Nitroglycerin (Ntg) 0.4 mg Q5M PRN SL Prn Chest Pain 03/03/19 21:15 04/02/19 21:14 Ondansetron HCl (Zofran) 4 mg Q6H PRN IVP Nausea & Vomiting 03/03/19 21:15 04/02/19 21:14 Polyethylene Glycol (Miralax) 17 gm DAILYPRN PRN ORAL Constipation 03/03/19 21:15 04/02/19 21:14 Elliot Chauhan MD Mar 13, 2019 12:02
[2019-03-13] MEDS: fentaNYL Destruction MISC SCH (14:09)
[2019-03-13 16:00] VITALS: BP 130/74
[2019-03-13] MEDS: Doxycycline Monohydrate 100mg ORAL SCH (17:59)
--- NOTE | 2019-03-13 19:30 | Consultation ---
DATE OF CONSULTATION: HISTORY OF PRESENT ILLNESS: This 53-year-old male with cellulitis, confused, and disorganized. lots of anxiety and depression worsened by stress of his medical illness, which include cellulitis, also some mood lability and agitation as well. MENTAL STATUS EXAMINATION: This is a 53-year-old male. Appearance is disheveled. Attitude, irritable and agitated. Affect, guarded and restricted. Intellect poor. Mood, depressed and anxious. Motor activity, psychomotor agitation. Attention span is poor. Orientation x2. Speech is pressured. Thought process, disorganized and illogical. Insight and judgment is poor. DIAGNOSIS: Major depressive disorder, mild, recurrent, without psychotic features, rule out generalized anxiety disorder. PLAN: Treat this patient with medication regimen consisting of Cymbalta 30 mg daily. A 20 minutes of reality-based cognitive psychotherapy . Chart reviewed. Discussed with staff. Seen and assessed at bedside. Laney Mcghee M.D. DR: Hakan JOB#: [id number] CC:
--- NOTE | 2019-03-13 19:31 | General Progress Note ---
Assessment/Plan Problem List: (1) Seizures ICD Codes: R56.9 - Unspecified convulsions SNOMED: 72474152 (2) Cellulitis ICD Codes: L03.90 - Cellulitis, unspecified SNOMED: 766445591 (3) COPD (chronic obstructive pulmonary disease) ICD Codes: J44.9 - Chronic obstructive pulmonary disease, unspecified SNOMED: 80466943 (4) Morbid obesity ICD Codes: E66.01 - Morbid (severe) obesity due to excess calories SNOMED: 879153070 (5) Lumbar spondylosis ICD Codes: M47.816 - Spondylosis without myelopathy or radiculopathy, lumbar region SNOMED: 464722753 (6) Right heart failure ICD Codes: I50.810 - Right heart failure, unspecified SNOMED: 180584991 Status: stable, progressing Assessment/Plan: obesity copd siezure none today no wheezing abx pe id afebrile no acute events Subjective ROS Limited/Unobtainable: Yes Allergies: Coded Allergies: ASPIRIN (Verified Allergy, Unknown, 07/14/18) KETOROLAC (Verified Allergy, Unknown, 07/14/18) PENICILLINS (Verified Allergy, Unknown, 12/23/18) tolerated Ancef on 08/2018 Objective Last 24 Hour Vital Signs Date Time Temp Pulse Resp B/P (MAP) Pulse Ox O2 Delivery O2 Flow Rate FiO2 03/13/19 17:09 97.2 03/13/19 16:00 97.4 80 18 130/74 (92) 94 03/13/19 15:01 97.2 03/13/19 12:00 97.1 86 20 138/73 (94) 100 03/13/19 10:31 86 136/79 03/13/19 09:26 97.2 03/13/19 09:00 Room Air 03/13/19 08:00 97.2 86 16 136/79 (98) 96 03/13/19 04:00 98.2 93 20 124/72 (89) 95 03/13/19 01:50 98.3 97 20 119/81 (94) 95 03/12/19 21:00 Room Air 03/12/19 20:00 98.4 69 20 130/72 (91) 95 Intake and Output 03/12/19 03/13/19 18:59 06:59 Intake Total 1000 ml 480 ml Output Total 1800 ml 1500 ml Balance -800 ml -1020 ml Intake Oral 480 ml Other 1000 ml Output Urine Total 1800 ml 1500 ml Height (Feet): 6 Height (Inches): 0.00 Weight (Pounds): 450 Cardiovascular: normal rate Respiratory/Chest: lungs clear Abdomen: soft Vadim Tang MD Mar 13, 2019 19:31
[2019-03-13 20:00] VITALS: BP 152/73
[2019-03-13] MEDS: Dyna-Hex 2% Top Sol 2oz TOPIC SCH (20:00)
[2019-03-13] MEDS: Heparin 5000 units/ml inj SUBQ SCH (21:34)
[2019-03-14] VITALS: BP 129/72
[2019-03-14 04:00] VITALS: BP 120/71
[2019-03-14 08:00] VITALS: BP 134/71
[2019-03-14] MEDS: Heparin 5000 units/ml inj SUBQ SCH ×2 (09:00→20:36)
[2019-03-14] MEDS: DULoxetine 30mg cap ORAL SCH (09:21)
[2019-03-14] MEDS: Levofloxacin 750mg tab ORAL SCH (09:22)
[2019-03-14] MEDS: Doxycycline Monohydrate 100mg ORAL SCH ×2 (09:22→17:43)
[2019-03-14 10:17] LABS: BASOPHILS % (AUTO) 1.2 % (0.0-2.0); EOSINOPHILS % (AUTO) 3.6 % (0.0-3.0); HEMATOCRIT 33.6 % (42.0-52.0); HEMOGLOBIN 10.8 G/DL (14.2-18.0); LYMPHOCYTES % (AUTO) 24.9 % (20.0-45.0); MEAN CORPUSCULAR VOLUME 87 FL (80-99); MONOCYTES % (AUTO) 6.1 % (1.0-10.0); NEUTROPHILS % (AUTO) 64.2 % (45.0-75.0); PLATELET COUNT 407 K/UL (150-450); RED BLOOD COUNT 3.85 M/UL (4.70-6.10); RED CELL DISTRIBUTION WIDTH 14.8 % (11.6-14.8); WHITE BLOOD COUNT 9.6 K/UL (4.8-10.8)
[2019-03-14 10:36] LABS: ALANINE AMINOTRANSFERASE 45 U/L (12-78); ALBUMIN 2.3 G/DL (3.4-5.0); ALBUMIN/GLOBULIN RATIO 0.4 (1.0-2.7); ALKALINE PHOSPHATASE 201 U/L (46-116); ANION GAP 4 mmol/L (5-15); ASPARTATE AMINO TRANSFERASE 46 U/L (15-37); BILIRUBIN,TOTAL 0.3 MG/DL (0.2-1.0); BLOOD UREA NITROGEN 23 mg/dL (7-18); CALCIUM 8.9 MG/DL (8.5-10.1); CARBON DIOXIDE 32 MMOL/L (21-32); CHLORIDE 102 MMOL/L (98-107); CREATININE 0.9 MG/DL (0.55-1.30); SODIUM 137 MMOL/L (136-145)
--- NOTE | 2019-03-14 11:25 | Pulmonology Progress Note ---
Assessment/Plan Assessment/Plan ASSESSMENT surgical site infection/cellulitis dehiscence of surgical wound s/p panniculectomy COPD ADALBERTO morbid obesity Hx of CVA peripheral edema HTN seizure disorder tobacco abuse major depressive disorder possible generalized anxiety disorder PLAN OF CARE [facility] floor abx as pr ID recs on Doxy and Levaquin, will need total of 2 wks of abx- as per ID O2 HHN prn BiPAP at HS and prn wound care plastic surgeon seen and evaluated , no need for surgical intervention, continue abx and wound care continue Lasix, monitor volumes, renal parameters lytes, BP management with CCB seizure precautions, continue Keppra, no evidence of seizure activity while in the hospital pediatric genetic counselor on smoking cessation DVT prophylaxis pain management bowel regimen dc plan to SNF for wound care and oral abx to complete the course case discussed and evaluated by supervising physician Subjective Allergies: Coded Allergies: ASPIRIN (Verified Allergy, Unknown, 07/14/18) KETOROLAC (Verified Allergy, Unknown, 07/14/18) PENICILLINS (Verified Allergy, Unknown, 12/23/18) tolerated Ancef on 08/2018 Subjective remains afebrile, no leukocytosis Objective Last 24 Hour Vital Signs Date Time Temp Pulse Resp B/P (MAP) Pulse Ox O2 Delivery O2 Flow Rate FiO2 03/14/19 09:22 82 134/71 03/14/19 08:00 98.1 82 20 134/71 (92) 96 03/14/19 04:00 98.1 85 20 120/71 (87) 98 03/14/19 00:00 98.8 81 20 129/72 (91) 96 03/13/19 21:20 Room Air 03/13/19 20:00 97.8 80 20 152/73 (99) 96 03/13/19 17:09 97.2 03/13/19 16:00 97.4 80 18 130/74 (92) 94 03/13/19 15:01 97.2 03/13/19 12:00 97.1 86 20 138/73 (94) 100 Intake and Output 03/13/19 03/14/19 19:00 07:00 Intake Total 1100 ml Output Total 800 ml 800 ml Balance 300 ml -800 ml Intake Oral 1100 ml Output Urine Total 800 ml 800 ml Objective General Appearance: no acute distress, morbidly obese male HEENT: normocephalic, atraumatic, anicteric, mucous membranes moist, PERRL Respiratory/Chest: lungs clear with moderate air exchange , no respiratory distress, no accessory muscle use Cardiovascular: normal rate Abdomen: normal bowel sounds, soft, non tender - obese Extremities: other - +2 edema BLE Skin: lower abdomen surgical incision with few dehiscence sites, minimal amount of purulent drainage, Neurologic/Psychiatric: abnormal gait, alert, oriented x 3, responsive, depressed affect, left side weakness and spasticity Laboratory Tests 03/14/19 09:45: White Blood Count 9.6, Red Blood Count 3.85L, Hemoglobin 10.8L, Hematocrit 33.6L , Mean Corpuscular Volume 87, Mean Corpuscular Hemoglobin 28.2, Mean Corpuscular Hemoglobin Concent 32.3, Red Cell Distribution Width 14.8, Platelet Count 407, Mean Platelet Volume 3.8L, Neutrophils (%) (Auto) 64.2, Lymphocytes ( %) (Auto) 24.9, Monocytes (%) (Auto) 6.1, Eosinophils (%) (Auto) 3.6H, Basophils (%) (Auto) 1.2, Sodium Level 137, Potassium Level 5.0, Chloride Level 102, Carbon Dioxide Level 32, Anion Gap 4L, Blood Urea Nitrogen 23H, Creatinine 0.9, Estimat Glomerular Filtration Rate > 60, Glucose Level 124H, Calcium Level 8.9, Total Bilirubin 0.3, Aspartate Amino Transf (AST/SGOT) 46H, Alanine Aminotransferase (ALT/SGPT) 45, Alkaline Phosphatase 201H, Total Protein 7.6, Albumin 2.3L, Globulin 5.3, Albumin/Globulin Ratio 0.4L Current Medications Medications (Trade) Dose Ordered Sig/Luis Route PRN Reason Start Time Stop Time Status Last Admin Dose Admin Acetaminophen (Tylenol) 650 mg Q4H PRN ORAL fever 03/03/19 21:15 04/02/19 21:14 Amlodipine Besylate (Norvasc) 5 mg DAILY ORAL 03/14/19 09:00 04/13/19 08:59 03/14/19 09:22 Chlorhexidine Gluconate (Ruby-Hex 2%) 1 applic DAILY@1999 TOPIC 03/09/19 20:00 04/08/19 19:59 03/12/19 20:00 Doxycycline Monohydrate (Doxycycline Monohydrate) 100 mg BID ORAL 03/13/19 18:00 03/16/19 18:01 03/14/19 09:22 Duloxetine HCl (Cymbalta) 30 mg DAILY ORAL 03/14/19 09:00 04/13/19 08:59 03/14/19 09:21 Fentanyl (Duragesic) 1 patch Q72H TDERMAL 03/10/19 14:00 03/17/19 13:59 03/13/19 14:31 Furosemide (Lasix) 10 mg Q8HR ORAL 03/13/19 07:00 04/12/19 06:59 03/14/19 05:13 Heparin Sodium (Porcine) (Heparin 5000 units/ml) 5,000 units EVERY 12 HOURS SUBQ 03/13/19 21:00 04/12/19 20:59 03/13/19 21:34 Hydromorphone HCl (Dilaudid) 3 mg Q3H PRN IVP Severe Pain (Pain Scale 7-10) 03/13/19 10:00 03/20/19 06:59 03/14/19 11:16 Levetiracetam (Keppra) 1,000 mg Q8HR ORAL 03/13/19 07:00 04/12/19 06:59 03/14/19 05:12 Levofloxacin (Levaquin) 750 mg DAILY ORAL 03/14/19 09:00 03/17/19 08:59 03/14/19 09:22 Miscellaneous Medication (fentaNYL Destruction) 1 ea Q72H MISC 03/07/19 13:59 04/06/19 13:58 03/13/19 14:09 Naloxone HCl (Narcan) 0.1 mg PRN IV Sedation scale 3 or 4 03/04/19 13:00 04/03/19 12:59 Nitroglycerin (Ntg) 0.4 mg Q5M PRN SL Prn Chest Pain 03/03/19 21:15 04/02/19 21:14 Ondansetron HCl (Zofran) 4 mg Q6H PRN IVP Nausea & Vomiting 03/03/19 21:15 04/02/19 21:14 Polyethylene Glycol (Miralax) 17 gm DAILYPRN PRN ORAL Constipation 03/03/19 21:15 04/02/19 21:14 Kiera Vivar NP Mar 14, 2019 11:25
[2019-03-14 12:00] VITALS: BP 143/84
[2019-03-14 16:00] VITALS: BP 125/76
[2019-03-14 20:00] VITALS: BP 141/80
[2019-03-14] MEDS: Dyna-Hex 2% Top Sol 2oz TOPIC SCH (20:00)
--- NOTE | 2019-03-14 21:15 | Progress Note ---
DATE: 03/14/2019 SUBJECTIVE: This is a 53-year-old male with cellulitis. He is confused, disorganized. He has got altered mental status, but he is depressed because of his current medical condition. That is why, he has high levels of anxiety and depression. That is why, his attending has requested daily psychiatric consultation. MENTAL STATUS EXAMINATION: A 53-year-old male. Appearance is disheveled. Attitude, irritable and agitated. Affect, guarded and restricted. Intellect poor. Mood, depressed and anxious. Motor activity, psychomotor agitation. Attention span is poor. Orientation x2. Speech is low volume, slurred. Thought process, disorganized and illogical thought. Insight and judgment is poor. DIAGNOSIS: Major depressive disorder, mild, recurrent without psychotic features. PLAN: Treat him with Cymbalta 30 mg a day. A 20 minutes of reality-based supportive psychotherapy. Chart reviewed. Discussed with staff. Seen and assessed in room. 20 minutes of reality-based supportive psychotherapy provided. 20 minutes of cognitive behavioral therapy provided to help him identify automatic negative thoughts and to convert his negative thoughts to more positive thoughts to reduce depression, anxiety, and mood lability. Laney Mcghee M.D. DR: Lois JOB#: [id number] CC:
--- NOTE | 2019-03-14 22:04 | General Progress Note ---
Assessment/Plan Problem List: (1) Seizures ICD Codes: R56.9 - Unspecified convulsions SNOMED: 12212111 (2) Cellulitis ICD Codes: L03.90 - Cellulitis, unspecified SNOMED: 557703843 (3) COPD (chronic obstructive pulmonary disease) ICD Codes: J44.9 - Chronic obstructive pulmonary disease, unspecified SNOMED: 75529010 (4) Morbid obesity ICD Codes: E66.01 - Morbid (severe) obesity due to excess calories SNOMED: 758927981 (5) Lumbar spondylosis ICD Codes: M47.816 - Spondylosis without myelopathy or radiculopathy, lumbar region SNOMED: 696895496 (6) Right heart failure ICD Codes: I50.810 - Right heart failure, unspecified SNOMED: 314678190 Status: stable, progressing Assessment/Plan: cellulitis no siezure check lytes obesity copd siezure none today no wheezing Subjective ROS Limited/Unobtainable: Yes Allergies: Coded Allergies: ASPIRIN (Verified Allergy, Unknown, 07/14/18) KETOROLAC (Verified Allergy, Unknown, 07/14/18) PENICILLINS (Verified Allergy, Unknown, 12/23/18) tolerated Ancef on 08/2018 Objective Last 24 Hour Vital Signs Date Time Temp Pulse Resp B/P (MAP) Pulse Ox O2 Delivery O2 Flow Rate FiO2 03/14/19 21:38 98.9 03/14/19 20:00 98.5 83 19 141/80 (100) 97 03/14/19 16:00 98.9 78 18 125/76 (92) 100 03/14/19 12:00 97.2 90 18 143/84 (103) 98 03/14/19 09:22 82 134/71 03/14/19 09:00 Room Air 03/14/19 08:00 98.1 82 20 134/71 (92) 96 03/14/19 04:00 98.1 85 20 120/71 (87) 98 03/14/19 00:00 98.8 81 20 129/72 (91) 96 Intake and Output 03/13/19 03/14/19 18:59 06:59 Intake Total 1100 ml Output Total 800 ml 800 ml Balance 300 ml -800 ml Intake Oral 1100 ml Output Urine Total 800 ml 800 ml Laboratory Tests 03/14/19 09:45: White Blood Count 9.6, Red Blood Count 3.85L, Hemoglobin 10.8L, Hematocrit 33.6L , Mean Corpuscular Volume 87, Mean Corpuscular Hemoglobin 28.2, Mean Corpuscular Hemoglobin Concent 32.3, Red Cell Distribution Width 14.8, Platelet Count 407, Mean Platelet Volume 3.8L, Neutrophils (%) (Auto) 64.2, Lymphocytes ( %) (Auto) 24.9, Monocytes (%) (Auto) 6.1, Eosinophils (%) (Auto) 3.6H, Basophils (%) (Auto) 1.2, Sodium Level 137, Potassium Level 5.0, Chloride Level 102, Carbon Dioxide Level 32, Anion Gap 4L, Blood Urea Nitrogen 23H, Creatinine 0.9, Estimat Glomerular Filtration Rate > 60, Glucose Level 124H, Calcium Level 8.9, Total Bilirubin 0.3, Aspartate Amino Transf (AST/SGOT) 46H, Alanine Aminotransferase (ALT/SGPT) 45, Alkaline Phosphatase 201H, Total Protein 7.6, Albumin 2.3L, Globulin 5.3, Albumin/Globulin Ratio 0.4L Height (Feet): 6 Height (Inches): 0.00 Weight (Pounds): 450 Neck: supple Cardiovascular: normal rate Respiratory/Chest: lungs clear Abdomen: soft Vadim Tang MD Mar 14, 2019 22:04
[2019-03-15] VITALS: BP 140/78
[2019-03-15 04:00] VITALS: BP 138/77
[2019-03-15 08:00] VITALS: BP 130/71
[2019-03-15] MEDS: Doxycycline Monohydrate 100mg ORAL SCH ×2 (09:00→17:14)
[2019-03-15] MEDS: Levofloxacin 750mg tab ORAL SCH (09:01)
[2019-03-15] MEDS: DULoxetine 30mg cap ORAL SCH (09:01)
[2019-03-15] MEDS: Heparin 5000 units/ml inj SUBQ SCH ×2 (09:02→20:23)
--- NOTE | 2019-03-15 11:23 | Consultation ---
History of Present Illness General Date patient seen: Mar 15, 2019 Reason for Hospitalization: General Complaint Present Illness HPI This is a 53-year-old male well-known to me from prior admissions and surgical intervention along with past surgery. Patient currently admitted for care and management and during admission surgery called to evaluate wound and assist with care. Patient seen, patient evaluated, chart reviewed. Patient states that he was doing well but began to have more activity recently and noted some opening of the wounds prior. Has noted some drainage in the past few days and some foul odor as well. States that some of the lawrence a fall out on their own recently. Allergies: Coded Allergies: ASPIRIN (Verified Allergy, Unknown, 07/14/18) KETOROLAC (Verified Allergy, Unknown, 07/14/18) PENICILLINS (Verified Allergy, Unknown, 12/23/18) tolerated Ancef on 08/2018 Medication History Scheduled Amlodipine Besylate* (Amlodipine Besylate*), 5 MG ORAL DAILY, (Reported) Amlodipine Besylate* (Amlodipine Besylate*), 5 MG ORAL DAILY, (Reported) Clopidogrel* (Clopidogrel*), 75 MG ORAL DAILY, (Reported) Docusate Sodium* (Docusate Sodium*), 100 MG ORAL DAILY, (Reported) Doxycycline Hyclate* (Vibramycin*), 100 MG ORAL BID, (Reported) Duloxetine Hcl* (Cymbalta*), 60 MG ORAL DAILY, (Reported) Duloxetine Hcl* (Cymbalta*), 30 MG ORAL DAILY, (Reported) Enoxaparin* (Lovenox*), 40 MG SUBQ DAILY, (Reported) Fentanyl (Fentanyl), 1 PATCH TOPIC EVERY 72 HOURS, (Reported) Furosemide* (Lasix*), 10 MG ORAL Q8HR, (Reported) Gabapentin* (Gabapentin*), 900 MG ORAL THREE TIMES A DAY, (Reported) Lactobacillus Acidophilus (Acidophilus), 1 EACH PO BID, (Reported) Levetiracetam (Levetiracetam), 1,000 MG ORAL TID, (Reported) Levetiracetam (Keppra), 1,000 MG ORAL Q8HR, (Reported) Levofloxacin* (Levaquin*), 750 MG ORAL DAILY, (Reported) Methadone Hcl* (Methadone*), 10 MG ORAL Q6HR, (Reported) Miconazole Nitrate (Miconazole Nitrate), 1 APPLIC TOPIC Q12HR, (Reported) Nitroglycerin (Nitro-Bid*), 1 INCH TOPIC Q8HR, (Reported) Pantoprazole* (Pantoprazole*), 40 MG ORAL BID, (Reported) Pantoprazole* (Protonix*), 40 MG ORAL ACBREAKFAST, (Reported) Sennosides (Senna), 2 TAB PO HS, (Reported) Scheduled PRN Hydrocodone Bit/Acetaminophen 5-325* ([place] 5-325*), 2 TAB ORAL Q6H PRN for For Pain, (Reported) Hydromorphone HCl/Pf (Dilaudid 0.5 mg/0.5 ml Syringe), 0.5 MG IJ EVERY 3 HOURS PRN for For Pain, (Reported) Hydromorphone HCl/Pf (Dilaudid 4 mg/ml Syringe), 4 MG PO Q4HR PRN for For Pain, (Reported) Methocarbamol* (Methocarbamol*), 500 MG ORAL Q8HR PRN for For Pain, (Reported) Ondansetron* (Zofran*), 4 MG ORAL Q4HR PRN for Nausea & Vomiting, (Reported) Ondansetron* (Zofran*), 4 MG IV Q6H PRN for Nausea & Vomiting, (Reported) Patient History History Provided By: Patient, Medical Record, PMD Healthcare decision maker SELF Resuscitation status Full Code Advanced Directive on File Past Medical/Surgical History Past Medical/Surgical History: (1) Wound infection after surgery (2) Cellulitis (3) COPD (chronic obstructive pulmonary disease) (4) Morbid obesity (5) Lumbar spondylosis (6) Right heart failure (7) ADALBERTO (obstructive sleep apnea) (8) Abdominal pannus (9) Seizures (10) Cerebrovascular accident (11) Peripheral edema (12) Abdominal wall cellulitis (13) UTI (urinary tract infection) (14) Hyponatremia (15) Uncontrolled seizures (16) Knee osteomyelits, right Review of Systems Review of Symptoms General ROS: no weight loss or fever Psychological ROS: no depression or mood changes, no memory loss Ophthalmic ROS: no visual changes or eye irritation ENT ROS: no nasal congestion, hearing loss, dizziness Allergy and Immunology ROS: no allergic symptoms or urticaria Hematological and Lymphatic ROS: no swollen glands, unusual bleeding or bruising Endocrine ROS: no polyuria, polydipsia, weight changes, temperature intolerance Respiratory ROS: no cough, shortness of breath, or wheezing Cardiovascular ROS: no chest pain or dyspnea on exertion Gastrointestinal ROS: denies abdominal pain, no bright red blood in stool. Musculoskeletal ROS: no myalgias or arthralgias Neurological ROS: no TIA or stroke symptoms Dermatological ROS: no new or changing skin lesions, rashes or pruritis Physical Exam Physical Exam General appearance: alert, cooperative, no distress, appears stated age Head: Normocephalic, without obvious abnormality, atraumatic Eyes: conjunctivae/corneas clear. PERRL, EOM's intact. Fundi benign Throat: Lips, mucosa, and tongue normal. Teeth and gums normal Neck: supple, symmetrical, trachea midline, no adenopathy, thyroid: not enlarged, symmetric, no tenderness/mass/nodules, no carotid bruit and no JVD Lungs: clear to auscultation bilaterally Heart: regular rate and rhythm, S1, S2 normal, no murmur, click, rub or gallop Abdomen: soft, non-tender. Bowel sounds normal. No masses, no organomegaly. prior wound with healing issues Extremities: extremities normal, atraumatic, no cyanosis or edema Pulses: 2+ and symmetric Skin: Skin color, texture, turgor normal. No rashes or lesions Neurologic: Grossly normal Last 24 Hour Vital Signs Date Time Temp Pulse Resp B/P (MAP) Pulse Ox O2 Delivery O2 Flow Rate FiO2 03/15/19 10:58 98.9 03/15/19 09:01 85 130/71 03/15/19 09:00 Room Air 03/15/19 08:00 97.8 85 18 130/71 (90) 95 03/15/19 04:00 98.7 85 19 138/77 (97) 96 03/15/19 00:00 98.6 70 19 140/78 (98) 97 03/14/19 23:25 Room Air 03/14/19 20:00 98.5 83 19 141/80 (100) 97 03/14/19 16:00 98.9 78 18 125/76 (92) 100 03/14/19 12:00 97.2 90 18 143/84 (103) 98 Intake and Output 03/14/19 03/15/19 19:00 07:00 Intake Total 800 ml Output Total 800 ml 600 ml Balance 0 ml -600 ml Intake Oral 800 ml Output Urine Total 800 ml 600 ml Laboratory Tests Test 03/15/19 11:00 White Blood Count Pending Red Blood Count Pending Hemoglobin Pending Hematocrit Pending Mean Corpuscular Volume Pending Mean Corpuscular Hemoglobin Pending Mean Corpuscular Hemoglobin Concent Pending Red Cell Distribution Width Pending Platelet Count Pending Mean Platelet Volume Pending Neutrophils (%) (Auto) Pending Lymphocytes (%) (Auto) Pending Monocytes (%) (Auto) Pending Eosinophils (%) (Auto) Pending Basophils (%) (Auto) Pending Sodium Level Pending Potassium Level Pending Chloride Level Pending Carbon Dioxide Level Pending Blood Urea Nitrogen Pending Creatinine Pending Estimat Glomerular Filtration Rate Pending Glucose Level Pending Calcium Level Pending Height (Feet): 6 Height (Inches): 0.00 Weight (Pounds): 450 Medications Current Medications Medications (Trade) Dose Ordered Sig/Luis Route PRN Reason Start Time Stop Time Status Last Admin Dose Admin Acetaminophen (Tylenol) 650 mg Q4H PRN ORAL fever 03/03/19 21:15 04/02/19 21:14 Amlodipine Besylate (Norvasc) 5 mg DAILY ORAL 03/14/19 09:00 04/13/19 08:59 03/15/19 09:01 Chlorhexidine Gluconate (Ruby-Hex 2%) 1 applic DAILY@2000 TOPIC 03/09/19 20:00 04/08/19 19:59 03/12/19 20:00 Doxycycline Monohydrate (Doxycycline Monohydrate) 100 mg BID ORAL 03/13/19 18:00 03/16/19 18:01 03/15/19 09:00 Duloxetine HCl (Cymbalta) 30 mg DAILY ORAL 03/14/19 09:00 04/13/19 08:59 03/15/19 09:01 Fentanyl (Duragesic) 1 patch Q72H TDERMAL 03/10/19 14:00 03/17/19 13:59 03/13/19 14:31 Furosemide (Lasix) 10 mg Q8HR ORAL 03/13/19 07:00 04/12/19 06:59 03/15/19 06:46 Heparin Sodium (Porcine) (Heparin 5000 units/ml) 5,000 units EVERY 12 HOURS SUBQ 03/13/19 21:00 04/12/19 20:59 03/15/19 09:02 Hydromorphone HCl (Dilaudid) 3 mg Q3H PRN IVP Severe Pain (Pain Scale 7-10) 03/13/19 10:00 03/20/19 06:59 03/15/19 10:27 Levetiracetam (Keppra) 1,000 mg Q8HR ORAL 03/13/19 07:00 04/12/19 06:59 03/15/19 06:45 Levofloxacin (Levaquin) 750 mg DAILY ORAL 03/14/19 09:00 03/17/19 08:59 03/15/19 09:01 Miscellaneous Medication (fentaNYL Destruction) 1 ea Q72H MISC 03/07/19 13:59 04/06/19 13:58 03/13/19 14:09 Naloxone HCl (Narcan) 0.1 mg PRN IV Sedation scale 3 or 4 03/04/19 13:00 04/03/19 12:59 Nitroglycerin (Ntg) 0.4 mg Q5M PRN SL Prn Chest Pain 03/03/19 21:15 04/02/19 21:14 Ondansetron HCl (Zofran) 4 mg Q6H PRN IVP Nausea & Vomiting 03/03/19 21:15 04/02/19 21:14 Polyethylene Glycol (Miralax) 17 gm DAILYPRN PRN ORAL Constipation 03/03/19 21:15 04/02/19 21:14 Assessment/Plan Problem List: (1) Wound infection after surgery ICD Codes: T81.49XA - Infection following a procedure, other surgical site, initial encounter SNOMED: 58394265, 014401665 (2) Cellulitis ICD Codes: L03.90 - Cellulitis, unspecified SNOMED: 284610936 (3) Abdominal wall cellulitis Assessment & Plan: Patient seen and examined at bedside. Prior panniculectomy incision has multiple areas that have healed well as well as some areas that have not. In the mid right incision there is a 5 cm x 6 cm opening with slough and some seropurulent drainage. On the left lateral aspect there is some small areas of opening. At the bedside any loose and unnecessary lawrence have been removed by myself today. The wounds have been evaluated irrigated cleansed and packed as well as dressing applications. Labs noted no leukocytosis at this time. Overall given body habitus, condition, overall intervention patient is doing okay but will need a significant more recovery. Patient relies on his narcotic pain medication and frequently asked for increases despite seemingly comfortable. Furthermore patient states that he does want to improve his health and overall condition but continues to have soda and multiple different candy bars and wrappers at the bedside. He is not adhering to any diet plan that has been given to him more spoken to him about and continues to eat and drink as he pleases. Fortunately overall the panniculectomy has gone well except for some areas of wound breakdown. We will continue with local wound care in these areas. Packing dressing 3 times daily and as needed saturation with gauze. We will follow with recommendations along with plastic surgery. Thank you ICD Codes: L03.311 - Cellulitis of abdominal wall SNOMED: 76204776 Gt Fernandez Mar 15, 2019 11:23
[2019-03-15 11:24] LABS: ANION GAP 4 mmol/L (5-15); BLOOD UREA NITROGEN 21 mg/dL (7-18); CALCIUM 9.3 MG/DL (8.5-10.1); CARBON DIOXIDE 32 MMOL/L (21-32); CHLORIDE 103 MMOL/L (98-107); CREATININE 0.9 MG/DL (0.55-1.30); POTASSIUM 4.1 MMOL/L (3.5-5.1); SODIUM 139 MMOL/L (136-145)
[2019-03-15 11:26] LABS: BASOPHILS % (AUTO) 0.8 % (0.0-2.0); EOSINOPHILS % (AUTO) 2.4 % (0.0-3.0); HEMATOCRIT 32.3 % (42.0-52.0); HEMOGLOBIN 10.2 G/DL (14.2-18.0); LYMPHOCYTES % (AUTO) 23.9 % (20.0-45.0); MEAN CORPUSCULAR VOLUME 87 FL (80-99); MONOCYTES % (AUTO) 7.3 % (1.0-10.0); NEUTROPHILS % (AUTO) 65.6 % (45.0-75.0); PLATELET COUNT 380 K/UL (150-450); RED BLOOD COUNT 3.69 M/UL (4.70-6.10); RED CELL DISTRIBUTION WIDTH 14.8 % (11.6-14.8); WHITE BLOOD COUNT 10.1 K/UL (4.8-10.8)
--- NOTE | 2019-03-15 11:45 | Progress Note ---
DATE: 03/15/2019 SUBJECTIVE: This is a 53-year-old male with cellulitis. The patient does have some confusion, disorganized thought process, and decline in cognition below his baseline. That is why, his attending physician has requested daily psychiatric consultation. This is a male patient, depressed, anxious, confused, disorganized. He has got no logical plan for his own self-care. He has got feelings of helplessness, hopelessness, low energy, poor appetite, and loss of interest in activity. DIAGNOSIS: Major depressive disorder, mild, recurrent without psychotic features. PLAN: Treat him with psychotropic medication regimen consisting of Cymbalta 30 mg daily. A 20 minutes of reality-based supportive psychotherapy. A 20 minutes of cognitive behavioral therapy to help identify his automatic negative thoughts and help him convert his negative thoughts to more positive thoughts to reduce depression, anxiety, and mood lability. Chart reviewed. Discussed with staff. Seen and assessed in his room. Laney Mcghee M.D. DR: GUTIERREZ JOB#: [id number] CC:
[2019-03-15 12:00] VITALS: BP 138/79
--- NOTE | 2019-03-15 12:14 | Pulmonology Progress Note ---
Assessment/Plan Problems: (1) Cellulitis (2) Status post panniculectomy (3) COPD (chronic obstructive pulmonary disease) (4) Lumbar spondylosis (5) ADALBERTO (obstructive sleep apnea) (6) Abdominal pannus (7) Seizures (8) Cerebrovascular accident (9) Peripheral edema Assessment/Plan doing better pain is better controlled, continue fentanyl patch, states that the effect wears off after the first day, will change it to q 48 hours. wound care respiratory treatment titrate fio2 to sat of 92% dc planning in progress Subjective ROS Limited/Unobtainable: No Constitutional: Reports: no symptoms HEENT: Repors: no symptoms Respiratory: Reports: no symptoms Allergies: Coded Allergies: ASPIRIN (Verified Allergy, Unknown, 07/14/18) KETOROLAC (Verified Allergy, Unknown, 07/14/18) PENICILLINS (Verified Allergy, Unknown, 12/23/18) tolerated Ancef on 08/2018 Objective Last 24 Hour Vital Signs Date Time Temp Pulse Resp B/P (MAP) Pulse Ox O2 Delivery O2 Flow Rate FiO2 03/15/19 10:58 98.9 03/15/19 09:01 85 130/71 03/15/19 09:00 Room Air 03/15/19 08:00 97.8 85 18 130/71 (90) 95 03/15/19 04:00 98.7 85 19 138/77 (97) 96 03/15/19 00:00 98.6 70 19 140/78 (98) 97 03/14/19 23:25 Room Air 03/14/19 20:00 98.5 83 19 141/80 (100) 97 03/14/19 16:00 98.9 78 18 125/76 (92) 100 Intake and Output 03/14/19 03/15/19 19:00 07:00 Intake Total 800 ml Output Total 800 ml 600 ml Balance 0 ml -600 ml Intake Oral 800 ml Output Urine Total 800 ml 600 ml General Appearance: WD/WN HEENT: normocephalic, anicteric Respiratory/Chest: chest wall non-tender, lungs clear, normal breath sounds Cardiovascular: normal peripheral pulses, normal rate Abdomen: normal bowel sounds, no organomegaly Genitourinary: normal external genitalia Extremities: no cyanosis Skin: no rash 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 Lymphatic: no neck adenopathy Laboratory Tests 03/15/19 11:00: White Blood Count 10.1, Red Blood Count 3.69L, Hemoglobin 10.2L, Hematocrit 32.3L, Mean Corpuscular Volume 87, Mean Corpuscular Hemoglobin 27.5, Mean Corpuscular Hemoglobin Concent 31.5L, Red Cell Distribution Width 14.8, Platelet Count 380, Mean Platelet Volume 4.4L, Neutrophils (%) (Auto) 65.6, Lymphocytes (%) (Auto) 23.9, Monocytes (%) (Auto) 7.3, Eosinophils (%) (Auto) 2.4, Basophils (%) (Auto) 0.8, Sodium Level 139, Potassium Level 4.1, Chloride Level 103, Carbon Dioxide Level 32, Anion Gap 4L, Blood Urea Nitrogen 21H, Creatinine 0.9, Estimat Glomerular Filtration Rate > 60, Glucose Level 100, Calcium Level 9.3 Current Medications Medications (Trade) Dose Ordered Sig/Luis Route PRN Reason Start Time Stop Time Status Last Admin Dose Admin Acetaminophen (Tylenol) 650 mg Q4H PRN ORAL fever 03/03/19 21:15 04/02/19 21:14 Amlodipine Besylate (Norvasc) 5 mg DAILY ORAL 03/14/19 09:00 04/13/19 08:59 03/15/19 09:01 Chlorhexidine Gluconate (Ruby-Hex 2%) 1 applic DAILY@1999 TOPIC 03/09/19 20:00 04/08/19 19:59 03/12/19 20:00 Doxycycline Monohydrate (Doxycycline Monohydrate) 100 mg BID ORAL 03/13/19 18:00 03/16/19 18:01 03/15/19 09:00 Duloxetine HCl (Cymbalta) 30 mg DAILY ORAL 03/14/19 09:00 04/13/19 08:59 03/15/19 09:01 Fentanyl (Duragesic) 1 patch Q72H TDERMAL 03/10/19 14:00 03/17/19 13:59 03/13/19 14:31 Furosemide (Lasix) 10 mg Q8HR ORAL 03/13/19 07:00 04/12/19 06:59 03/15/19 06:46 Heparin Sodium (Porcine) (Heparin 5000 units/ml) 5,000 units EVERY 12 HOURS SUBQ 03/13/19 21:00 04/12/19 20:59 03/15/19 09:02 Hydromorphone HCl (Dilaudid) 3 mg Q3H PRN IVP Severe Pain (Pain Scale 7-10) 03/13/19 10:00 03/20/19 06:59 03/15/19 10:27 Levetiracetam (Keppra) 1,000 mg Q8HR ORAL 03/13/19 07:00 04/12/19 06:59 03/15/19 06:45 Levofloxacin (Levaquin) 750 mg DAILY ORAL 03/14/19 09:00 03/17/19 08:59 03/15/19 09:01 Miscellaneous Medication (fentaNYL Destruction) 1 ea Q72H MISC 03/07/19 13:59 04/06/19 13:58 03/13/19 14:09 Naloxone HCl (Narcan) 0.1 mg PRN IV Sedation scale 3 or 4 03/04/19 13:00 04/03/19 12:59 Nitroglycerin (Ntg) 0.4 mg Q5M PRN SL Prn Chest Pain 03/03/19 21:15 04/02/19 21:14 Ondansetron HCl (Zofran) 4 mg Q6H PRN IVP Nausea & Vomiting 03/03/19 21:15 04/02/19 21:14 Polyethylene Glycol (Miralax) 17 gm DAILYPRN PRN ORAL Constipation 03/03/19 21:15 04/02/19 21:14 Bill Dixon MD Mar 15, 2019 12:14
--- NOTE | 2019-03-15 12:31 | General Progress Note ---
Assessment/Plan Problem List: (1) Seizures ICD Codes: R56.9 - Unspecified convulsions SNOMED: 69078582 (2) Cellulitis ICD Codes: L03.90 - Cellulitis, unspecified SNOMED: 259036433 (3) COPD (chronic obstructive pulmonary disease) ICD Codes: J44.9 - Chronic obstructive pulmonary disease, unspecified SNOMED: 66127596 (4) Morbid obesity ICD Codes: E66.01 - Morbid (severe) obesity due to excess calories SNOMED: 427000167 (5) Lumbar spondylosis ICD Codes: M47.816 - Spondylosis without myelopathy or radiculopathy, lumbar region SNOMED: 102456764 (6) Right heart failure ICD Codes: I50.810 - Right heart failure, unspecified SNOMED: 382529229 Status: stable, progressing Assessment/Plan: cellulitis improving check labs and meds no fever no siezure obesity copd under control resp insuff Subjective ROS Limited/Unobtainable: Yes Allergies: Coded Allergies: ASPIRIN (Verified Allergy, Unknown, 07/14/18) KETOROLAC (Verified Allergy, Unknown, 07/14/18) PENICILLINS (Verified Allergy, Unknown, 12/23/18) tolerated Ancef on 08/2018 Objective Last 24 Hour Vital Signs Date Time Temp Pulse Resp B/P (MAP) Pulse Ox O2 Delivery O2 Flow Rate FiO2 03/15/19 10:58 98.9 03/15/19 09:01 85 130/71 03/15/19 09:00 Room Air 03/15/19 08:00 97.8 85 18 130/71 (90) 95 03/15/19 04:00 98.7 85 19 138/77 (97) 96 03/15/19 00:00 98.6 70 19 140/78 (98) 97 03/14/19 23:25 Room Air 03/14/19 20:00 98.5 83 19 141/80 (100) 97 03/14/19 16:00 98.9 78 18 125/76 (92) 100 Intake and Output 03/14/19 03/15/19 18:59 06:59 Intake Total 800 ml Output Total 800 ml 600 ml Balance 0 ml -600 ml Intake Oral 800 ml Output Urine Total 800 ml 600 ml Laboratory Tests 03/15/19 11:00: White Blood Count 10.1, Red Blood Count 3.69L, Hemoglobin 10.2L, Hematocrit 32.3L, Mean Corpuscular Volume 87, Mean Corpuscular Hemoglobin 27.5, Mean Corpuscular Hemoglobin Concent 31.5L, Red Cell Distribution Width 14.8, Platelet Count 380, Mean Platelet Volume 4.4L, Neutrophils (%) (Auto) 65.6, Lymphocytes (%) (Auto) 23.9, Monocytes (%) (Auto) 7.3, Eosinophils (%) (Auto) 2.4, Basophils (%) (Auto) 0.8, Sodium Level 139, Potassium Level 4.1, Chloride Level 103, Carbon Dioxide Level 32, Anion Gap 4L, Blood Urea Nitrogen 21H, Creatinine 0.9, Estimat Glomerular Filtration Rate > 60, Glucose Level 100, Calcium Level 9.3 Height (Feet): 6 Height (Inches): 0.00 Weight (Pounds): 450 Cardiovascular: regular rhythm Respiratory/Chest: lungs clear Abdomen: soft Vadim Tang MD Mar 15, 2019 12:31
--- NOTE | 2019-03-15 14:54 | Infectious Diseases Prog Note ---
Assessment/Plan Assessment/Plan Surgical site infection -03/05 wound cx : S.aureus, diptheroids -03/04 wound cx MRSA (S tetracycline, bactrim, Vancomycin),K. pna (R amp; otherwise S) 02/01 SP Panniculectomy Afebrile No leukocytosis Recent hx of B/l Leg cellulitis and panniculitis 12/2018 - in the setting of chronic venous stasis, s/p Rx Recent seizure episode 11/2018 -had L side weakness and spasticity CVA HTN bipolar disorder w/ psychotic features tobacco abuse anxiety disorder chronic pain CHF seizure disorder COPD morbid obesity Dm2 HTN SNF resident Plan: -Continue PO Doxycycline 100mg bid #6 (abx d #/) and Levaquin 750mg qd #6 ( abx d# /) for SSI -03/10 SP IV Vancomycin #8, Ceftriaxone #5 -03/06 SP Cefepime #4 -02/08 SP IV Vancomycin #8 -02/04 SP Aztreonam #4 -01/26 SP Fluconazole #5 - 01/07/19 SP IV Dapto d# 14 - 01/06/19 S/P Levofloxacin #7 - 12/25/18 sp Bactrim #4 and IV Ancef #3 for cellulitis -f/u cx -Monitor CBC/CMP, temperatures -Sx f/u -wound care per surgical team Thank you for this consultation. Will continue to follow along with you. Subjective Allergies: Coded Allergies: ASPIRIN (Verified Allergy, Unknown, 07/14/18) KETOROLAC (Verified Allergy, Unknown, 07/14/18) PENICILLINS (Verified Allergy, Unknown, 12/23/18) tolerated Ancef on 08/2018 Subjective afebrile no leukocytosis Objective Vital Signs Last 24 Hour Vital Signs Date Time Temp Pulse Resp B/P (MAP) Pulse Ox O2 Delivery O2 Flow Rate FiO2 03/15/19 14:17 98.1 03/15/19 12:00 98.1 84 20 138/79 (98) 97 03/15/19 09:01 85 130/71 03/15/19 09:00 Room Air 03/15/19 08:00 97.8 85 18 130/71 (90) 95 03/15/19 04:00 98.7 85 19 138/77 (97) 96 03/15/19 00:00 98.6 70 19 140/78 (98) 97 03/14/19 23:25 Room Air 03/14/19 20:00 98.5 83 19 141/80 (100) 97 03/14/19 16:00 98.9 78 18 125/76 (92) 100 Height (Feet): 6 Height (Inches): 0.00 Weight (Pounds): 450 Objective General Appearance: alert, moderate distress, obese Head: atraumatic Eyes: bilateral eye normal inspection ENT: normal ENT inspection, hearing grossly normal, normal voice Neck: normal inspection, full range of motion, supple, no bony tend Respiratory: normal inspection, lungs clear, normal breath sounds, no respiratory distress, no retraction, no wheezing Cardiovascular #1: regular rate, rhythm, no edema Gastrointestinal: soft, other - Large lower abdomen surgical wound with some drainage, overweight Genitourinary: no CVA tenderness Musculoskeletal: normal range of motion, swelling - Lower extremity Neurologic: normal inspection, alert, responsive, speech normal Psychiatric: normal inspection, judgement/insight normal, mood/affect normal, anxious Skin: other - Erythema abdominal wall erythema abdominal wall with drainage Laboratory Tests Test 03/15/19 11:00 White Blood Count 10.1 K/UL (4.8-10.8) Red Blood Count 3.69 M/UL (4.70-6.10) L Hemoglobin 10.2 G/DL (14.2-18.0) L Hematocrit 32.3 % (42.0-52.0) L Mean Corpuscular Volume 87 FL (80-99) Mean Corpuscular Hemoglobin 27.5 PG (27.0-31.0) Mean Corpuscular Hemoglobin Concent 31.5 G/DL (32.0-36.0) L Red Cell Distribution Width 14.8 % (11.6-14.8) Platelet Count 380 K/UL (150-450) Mean Platelet Volume 4.4 FL (6.5-10.1) L Neutrophils (%) (Auto) 65.6 % (45.0-75.0) Lymphocytes (%) (Auto) 23.9 % (20.0-45.0) Monocytes (%) (Auto) 7.3 % (1.0-10.0) Eosinophils (%) (Auto) 2.4 % (0.0-3.0) Basophils (%) (Auto) 0.8 % (0.0-2.0) Sodium Level 139 MMOL/L (136-145) Potassium Level 4.1 MMOL/L (3.5-5.1) Chloride Level 103 MMOL/L (98-107) Carbon Dioxide Level 32 MMOL/L (21-32) Anion Gap 4 mmol/L (5-15) L Blood Urea Nitrogen 21 mg/dL (7-18) H Creatinine 0.9 MG/DL (0.55-1.30) Estimat Glomerular Filtration Rate > 60 mL/min (>60) Glucose Level 100 MG/DL (74-106) Calcium Level 9.3 MG/DL (8.5-10.1) Current Medications Medications (Trade) Dose Ordered Sig/Luis Route PRN Reason Start Time Stop Time Status Last Admin Dose Admin Acetaminophen (Tylenol) 650 mg Q4H PRN ORAL fever 03/03/19 21:15 04/02/19 21:14 Amlodipine Besylate (Norvasc) 5 mg DAILY ORAL 03/14/19 09:00 04/13/19 08:59 03/15/19 09:01 Chlorhexidine Gluconate (Ruby-Hex 2%) 1 applic DAILY@2000 TOPIC 03/09/19 20:00 04/08/19 19:59 03/12/19 20:00 Doxycycline Monohydrate (Doxycycline Monohydrate) 100 mg BID ORAL 03/13/19 18:00 03/16/19 18:01 03/15/19 09:00 Duloxetine HCl (Cymbalta) 30 mg DAILY ORAL 03/14/19 09:00 04/13/19 08:59 03/15/19 09:01 Fentanyl (Duragesic) 1 patch Q72H TDERMAL 03/10/19 14:00 03/17/19 13:59 03/13/19 14:31 Furosemide (Lasix) 10 mg Q8HR ORAL 03/13/19 07:00 04/12/19 06:59 03/15/19 14:14 Heparin Sodium (Porcine) (Heparin 5000 units/ml) 5,000 units EVERY 12 HOURS SUBQ 03/13/19 21:00 04/12/19 20:59 03/15/19 09:02 Hydromorphone HCl (Dilaudid) 3 mg Q3H PRN IVP Severe Pain (Pain Scale 7-10) 03/13/19 10:00 03/20/19 06:59 03/15/19 13:47 Levetiracetam (Keppra) 1,000 mg Q8HR ORAL 03/13/19 07:00 04/12/19 06:59 03/15/19 14:13 Levofloxacin (Levaquin) 750 mg DAILY ORAL 03/14/19 09:00 03/17/19 08:59 03/15/19 09:01 Miscellaneous Medication (fentaNYL Destruction) 1 ea QOD MISC 03/17/19 09:00 04/06/19 13:58 UNV Naloxone HCl (Narcan) 0.1 mg PRN IV Sedation scale 3 or 4 03/04/19 13:00 04/03/19 12:59 Nitroglycerin (Ntg) 0.4 mg Q5M PRN SL Prn Chest Pain 03/03/19 21:15 04/02/19 21:14 Ondansetron HCl (Zofran) 4 mg Q6H PRN IVP Nausea & Vomiting 03/03/19 21:15 04/02/19 21:14 Polyethylene Glycol (Miralax) 17 gm DAILYPRN PRN ORAL Constipation 03/03/19 21:15 04/02/19 21:14 Alexa Patterson M.D. Mar 15, 2019 14:54
[2019-03-15] MEDS ORDERED: fentaNYL Destruction MISC SCH (15:59)
[2019-03-15 16:00] VITALS: BP 105/49
[2019-03-15 20:00] VITALS: BP 156/87
[2019-03-15] MEDS: Dyna-Hex 2% Top Sol 2oz TOPIC SCH (20:00)
[2019-03-16] VITALS: BP 143/83
[2019-03-16 04:00] VITALS: BP 131/91
[2019-03-16] MEDS: Doxycycline Monohydrate 100mg ORAL SCH (08:32)
[2019-03-16] MEDS: DULoxetine 30mg cap ORAL SCH (08:33)
[2019-03-16] MEDS: Levofloxacin 750mg tab ORAL SCH (08:33)
[2019-03-16] MEDS: Heparin 5000 units/ml inj SUBQ SCH (08:34)
--- NOTE | 2019-03-16 11:43 | Infectious Diseases Prog Note ---
Assessment/Plan Assessment/Plan Surgical site infection; improving -03/05 wound cx : S.aureus, diptheroids -03/04 wound cx MRSA (S tetracycline, bactrim, Vancomycin),K. pna (R amp; otherwise S) 02/01 SP Panniculectomy Afebrile No leukocytosis Recent hx of B/l Leg cellulitis and panniculitis 12/2018 - in the setting of chronic venous stasis, s/p Rx Recent seizure episode 11/2018 -had L side weakness and spasticity CVA HTN bipolar disorder w/ psychotic features tobacco abuse anxiety disorder chronic pain CHF seizure disorder COPD morbid obesity Dm2 HTN SNF resident Plan: -Continue PO Doxycycline 100mg bid #7 (abx d #) and Levaquin 750mg qd #7 ( abx d# ) for SSI -03/10 SP IV Vancomycin #8, Ceftriaxone #5 -03/06 SP Cefepime #4 -02/08 SP IV Vancomycin #8 -02/04 SP Aztreonam #4 -01/26 SP Fluconazole #5 - 01/07/19 SP IV Dapto d# 14 - 01/06/19 S/P Levofloxacin #7 - 12/25/18 sp Bactrim #4 and IV Ancef #3 for cellulitis -f/u cx -Monitor CBC/CMP, temperatures -Sx f/u -wound care per surgical team Thank you for this consultation. Will continue to follow along with you. Subjective Allergies: Coded Allergies: ASPIRIN (Verified Allergy, Unknown, 07/14/18) KETOROLAC (Verified Allergy, Unknown, 07/14/18) PENICILLINS (Verified Allergy, Unknown, 12/23/18) tolerated Ancef on 08/2018 Subjective afebrile no leukocytosis Objective Vital Signs Last 24 Hour Vital Signs Date Time Temp Pulse Resp B/P (MAP) Pulse Ox O2 Delivery O2 Flow Rate FiO2 03/16/19 09:06 98.8 03/16/19 09:00 Room Air 03/16/19 08:33 81 131/91 03/16/19 04:00 98.8 81 18 131/91 (104) 95 03/16/19 00:00 98.2 63 18 143/83 (103) 95 03/15/19 21:00 Room Air 03/15/19 20:00 97.5 89 19 156/87 (110) 97 8/19/19 16:16 98.1 03/15/19 16:00 98.2 84 20 105/49 (67) 95 03/15/19 12:00 98.1 84 20 138/79 (98) 97 Height (Feet): 6 Height (Inches): 0.00 Weight (Pounds): 450 Objective General Appearance: alert, moderate distress, obese Head: atraumatic Eyes: bilateral eye normal inspection ENT: normal ENT inspection, hearing grossly normal, normal voice Neck: normal inspection, full range of motion, supple, no bony tend Respiratory: normal inspection, lungs clear, normal breath sounds, no respiratory distress, no retraction, no wheezing Cardiovascular #1: regular rate, rhythm, no edema Gastrointestinal: soft, other - Large lower abdomen surgical wound with some drainage, overweight Genitourinary: no CVA tenderness Musculoskeletal: normal range of motion, swelling - Lower extremity Neurologic: normal inspection, alert, responsive, speech normal Psychiatric: normal inspection, judgement/insight normal, mood/affect normal, anxious Skin: other - Erythema abdominal wall erythema abdominal wall with drainage Current Medications Medications (Trade) Dose Ordered Sig/Luis Route PRN Reason Start Time Stop Time Status Last Admin Dose Admin Acetaminophen (Tylenol) 650 mg Q4H PRN ORAL fever 03/03/19 21:15 04/02/19 21:14 Amlodipine Besylate (Norvasc) 5 mg DAILY ORAL 03/14/19 09:00 04/13/19 08:59 03/16/19 08:33 Chlorhexidine Gluconate (Ruby-Hex 2%) 1 applic DAILY@1999 TOPIC 03/09/19 20:00 04/08/19 19:59 03/12/19 20:00 Doxycycline Monohydrate (Doxycycline Monohydrate) 100 mg BID ORAL 03/13/19 18:00 03/16/19 18:01 03/16/19 08:32 Duloxetine HCl (Cymbalta) 30 mg DAILY ORAL 03/14/19 09:00 04/13/19 08:59 03/16/19 08:33 Fentanyl (Duragesic) 1 patch Q48H TDERMAL 03/15/19 16:00 03/22/19 15:59 03/15/19 15:46 Furosemide (Lasix) 10 mg Q8HR ORAL 03/13/19 07:00 04/12/19 06:59 03/16/19 05:28 Heparin Sodium (Porcine) (Heparin 5000 units/ml) 5,000 units EVERY 12 HOURS SUBQ 03/13/19 21:00 04/12/19 20:59 03/16/19 08:34 Hydromorphone HCl (Dilaudid) 3 mg Q3H PRN IVP Severe Pain (Pain Scale 7-10) 03/13/19 10:00 03/20/19 06:59 03/16/19 08:36 Levetiracetam (Keppra) 1,000 mg Q8HR ORAL 03/13/19 07:00 04/12/19 06:59 03/16/19 05:27 Levofloxacin (Levaquin) 750 mg DAILY ORAL 03/14/19 09:00 03/17/19 08:59 03/16/19 08:33 Miscellaneous Medication (fentaNYL Destruction) 1 ea Q48H MISC 03/15/19 15:59 04/14/19 15:58 03/15/19 15:47 Naloxone HCl (Narcan) 0.1 mg PRN IV Sedation scale 3 or 4 03/04/19 13:00 04/03/19 12:59 Nitroglycerin (Ntg) 0.4 mg Q5M PRN SL Prn Chest Pain 03/03/19 21:15 04/02/19 21:14 Ondansetron HCl (Zofran) 4 mg Q6H PRN IVP Nausea & Vomiting 03/03/19 21:15 04/02/19 21:14 Polyethylene Glycol (Miralax) 17 gm DAILYPRN PRN ORAL Constipation 03/03/19 21:15 04/02/19 21:14 Alexa Patterson M.D. Mar 16, 2019 11:43
[2019-03-16 12:00] VITALS: BP 129/74
--- NOTE | 2019-03-16 12:15 | Progress Note ---
DATE: 03/16/2019 SUBJECTIVE: This is a 53-year-old male patient, who was admitted to the hospital due to cellulitis, but he still has some anxiety and depression worsened by stress of his medical illness. That is why, his attending physician has requested daily psychiatric consultation. MENTAL STATUS EXAMINATION: This is a 53-year-old male. Appearance is disheveled. Attitude, irritable and agitated. Affect, guarded and restricted. Intellect poor. Mood, depressed and anxious. Motor activity, psychomotor agitation. Attention span is poor. Orientation x3. Speech is low volume, slurred. Thought process, disorganized and illogical. Insight and judgment is poor. DIAGNOSIS: Major depressive disorder, mild, recurrent, without psychotic features, rule out generalized anxiety disorder. PLAN: Treat him with Cymbalta 30 mg daily to reduce depression, anxiety, and also for pain prophylaxis. A 20 minutes of cognitive behavioral therapy to help identify his automatic negative thoughts and help him convert his negative thoughts to more positive thoughts to reduce depression, anxiety, and mood lability. Chart reviewed. Discussed with staff. Seen and assessed in his room. Laney Mcghee M.D. DR: GUTIERREZ JOB#: [id number] CC:
--- NOTE | 2019-03-16 12:51 | Pulmonology Progress Note ---
Assessment/Plan Problems: (1) Cellulitis (2) Status post panniculectomy (3) COPD (chronic obstructive pulmonary disease) (4) Lumbar spondylosis (5) ADALBERTO (obstructive sleep apnea) (6) Abdominal pannus (7) Seizures (8) Cerebrovascular accident (9) Peripheral edema Assessment/Plan doing better pain is better controlled, continue fentanyl patch, states that the effect wears off after the first day, will change it to q 48 hours. wound care respiratory treatment titrate fio2 to sat of 92% dc planning in progress Subjective ROS Limited/Unobtainable: No Constitutional: Reports: no symptoms HEENT: Repors: no symptoms Respiratory: Reports: no symptoms Allergies: Coded Allergies: ASPIRIN (Verified Allergy, Unknown, 07/14/18) KETOROLAC (Verified Allergy, Unknown, 07/14/18) PENICILLINS (Verified Allergy, Unknown, 12/23/18) tolerated Ancef on 08/2018 Objective Last 24 Hour Vital Signs Date Time Temp Pulse Resp B/P (MAP) Pulse Ox O2 Delivery O2 Flow Rate FiO2 03/16/19 09:06 98.8 03/16/19 09:00 Room Air 03/16/19 08:33 81 131/91 03/16/19 04:00 98.8 81 18 131/91 (104) 95 03/16/19 00:00 98.2 63 18 143/83 (103) 95 03/15/19 21:00 Room Air 03/15/19 20:00 97.5 89 19 156/87 (110) 97 03/15/19 16:16 98.1 03/15/19 16:00 98.2 84 20 105/49 (67) 95 Intake and Output 03/15/19 03/16/19 19:00 07:00 Intake Total 1000 ml 2000 ml Output Total 1350 ml 2800 ml Balance -350 ml -800 ml Intake Oral 1000 ml 2000 ml Output Urine Total 1350 ml 2800 ml General Appearance: WD/WN HEENT: normocephalic, atraumatic Respiratory/Chest: chest wall non-tender, lungs clear, normal breath sounds Cardiovascular: normal peripheral pulses, normal rate Abdomen: normal bowel sounds, soft, non tender Genitourinary: normal external genitalia Extremities: no clubbing Skin: no rash Current Medications Medications (Trade) Dose Ordered Sig/Luis Route PRN Reason Start Time Stop Time Status Last Admin Dose Admin Acetaminophen (Tylenol) 650 mg Q4H PRN ORAL fever 03/03/19 21:15 04/02/19 21:14 Amlodipine Besylate (Norvasc) 5 mg DAILY ORAL 03/14/19 09:00 04/13/19 08:59 03/16/19 08:33 Chlorhexidine Gluconate (Ruby-Hex 2%) 1 applic DAILY@2000 TOPIC 03/09/19 20:00 04/08/19 19:59 03/12/19 20:00 Doxycycline Monohydrate (Doxycycline Monohydrate) 100 mg BID ORAL 03/13/19 18:00 03/16/19 18:01 03/16/19 08:32 Duloxetine HCl (Cymbalta) 30 mg DAILY ORAL 03/14/19 09:00 04/13/19 08:59 03/16/19 08:33 Fentanyl (Duragesic) 1 patch Q48H TDERMAL 03/15/19 16:00 03/22/19 15:59 03/15/19 15:46 Furosemide (Lasix) 10 mg Q8HR ORAL 03/13/19 07:00 04/12/19 06:59 03/16/19 05:28 Heparin Sodium (Porcine) (Heparin 5000 units/ml) 5,000 units EVERY 12 HOURS SUBQ 03/13/19 21:00 04/12/19 20:59 03/16/19 08:34 Hydromorphone HCl (Dilaudid) 3 mg Q3H PRN IVP Severe Pain (Pain Scale 7-10) 03/13/19 10:00 03/20/19 06:59 03/16/19 11:51 Levetiracetam (Keppra) 1,000 mg Q8HR ORAL 03/13/19 07:00 04/12/19 06:59 03/16/19 05:27 Levofloxacin (Levaquin) 750 mg DAILY ORAL 03/14/19 09:00 03/17/19 08:59 03/16/19 08:33 Miscellaneous Medication (fentaNYL Destruction) 1 ea Q48H MISC 03/15/19 15:59 04/14/19 15:58 03/15/19 15:47 Naloxone HCl (Narcan) 0.1 mg PRN IV Sedation scale 3 or 4 03/04/19 13:00 04/03/19 12:59 Nitroglycerin (Ntg) 0.4 mg Q5M PRN SL Prn Chest Pain 03/03/19 21:15 04/02/19 21:14 Ondansetron HCl (Zofran) 4 mg Q6H PRN IVP Nausea & Vomiting 03/03/19 21:15 04/02/19 21:14 Polyethylene Glycol (Miralax) 17 gm DAILYPRN PRN ORAL Constipation 03/03/19 21:15 04/02/19 21:14 Bill Dixon MD Mar 16, 2019 12:51
[2019-03-16] MEDS ORDERED: fentaNYL Destruction MISC SCH (13:59)
[2019-03-16] MEDS ORDERED: ACETAMINOPHEN325 M1 ORAL (15:14)
[2019-03-16] MEDS ORDERED: MIRALAX17 G2 ORAL (15:18)
[2019-03-16] MEDS ORDERED: FENTANYL1 EAC1 TOPIC (15:25)
--- NOTE | 2019-03-16 15:44 | Surgery Progress Note ---
Surgery Progress Note Subjective Additional Comments afebrile, HD stable labs noted still having soda and candy. per report he has visitors buy him candy and soda still asking for pain meds Objective Last 24 Hour Vital Signs Date Time Temp Pulse Resp B/P (MAP) Pulse Ox O2 Delivery O2 Flow Rate FiO2 03/16/19 15:11 98.8 03/16/19 12:00 98.3 87 19 129/74 (92) 97 03/16/19 09:00 Room Air 03/16/19 08:33 81 131/91 03/16/19 04:00 98.8 81 18 131/91 (104) 95 03/16/19 00:00 98.2 63 18 143/83 (103) 95 03/15/19 21:00 Room Air 03/15/19 20:00 97.5 89 19 156/87 (110) 97 03/15/19 16:16 98.1 03/15/19 16:00 98.2 84 20 105/49 (67) 95 I&O Intake and Output 03/15/19 03/16/19 19:00 07:00 Intake Total 1000 ml 2000 ml Output Total 1350 ml 2800 ml Balance -350 ml -800 ml Intake Oral 1000 ml 2000 ml Output Urine Total 1350 ml 2800 ml Dressing: saturated Wound: other Drains: other Cardiovascular: RSR Respiratory: clear Abdomen: soft, non-tender, present bowel sounds, other, non-distended Extremities: edema, other Plan Problems: (1) Wound infection after surgery (2) Cellulitis (3) Abdominal wall cellulitis Assessment & Plan: Patient seen and examined at bedside. Prior panniculectomy incision has multiple areas that have healed well as well as some areas that have not. In the mid right incision there is a 5 cm x 6 cm opening with slough and some seropurulent drainage. On the left lateral aspect there is some small areas of opening. At the bedside any loose and unnecessary lawrence have been removed by myself today. The wounds have been evaluated irrigated cleansed and packed as well as dressing applications. Labs noted no leukocytosis at this time. Overall given body habitus, condition, overall intervention patient is doing okay but will need a significant more recovery. Patient relies on his narcotic pain medication and frequently asked for increases despite seemingly comfortable. Furthermore patient states that he does want to improve his health and overall condition but continues to have soda and multiple different candy bars and wrappers at the bedside. He is not adhering to any diet plan that has been given to him more spoken to him about and continues to eat and drink as he pleases. Fortunately overall the panniculectomy has gone well except for some areas of wound breakdown. We will continue with local wound care in these areas. Packing dressing 3 times daily and as needed saturation with gauze. We will follow with recommendations along with plastic surgery. Thank you Gt Fernandez Mar 16, 2019 15:44
[2019-03-16] MEDS ORDERED: Doxycycline Monohydrate 100mg ORAL SCH (21:00)
--- NOTE | 2019-03-17 10:30 | Discharge Summary ---
Discharge Summary Discharge Summary _ DATE OF ADMISSION: 03/03/2019 DATE OF DISCHARGE: 03/16/2019 DISCHARGED BY: Dr Nicole REASON FOR ADMISSION: 53 years old male with past medical history of hypertension , COPD, seizure disorder, history of CVA, obstructive sleep apnea, morbid obesity, status post recent panniculectomy, presented with significant pain and drainage from the surgical site . He reported subjective fevers and chills. He denied nausea, vomiting , diarrhea. Upon evaluation vital signs were stable. Laboratory work-up revealed no leukocytosis , hemoglobin 9.8 , hematocrit 29.9. Platelet count 302. Stable electrolytes and renal parameters. Glucose 111. AST 45, ALT 40. Lipase 120. Clinical exam revealed surgical site infections and small areas of dehiscence. Patient started on empiric antibiotic, received analgesia and admitted for further management. CONSULTANTS: pulmonary Dr. Dixon ID specialist Dr. Patterson plastic surgeon Dr. Roberts surgery Dr. Fernandez psychiatrist Dr. Mcghee [facility]: Patient admitted to medical surgical floor. Plastic surgeon and general surgeon seen and evaluated patient. Per plastic surgeon , patient had cellulitis and small areas of dehiscence, which was not unusual complication for this type of surgery/ panniculectomy. Plastic surgery recommended continue IV antibiotic and wound care. No role for surgical debridement or attempt at delayed primary closure at this time. Wound care provided as per general surgeon recommendation. Antibiotics provided as per ID specialist recommendation. Wound culture revealed MRSA and Klebsiella. Patient remain afebrile no leukocytosis. IV antibiotic changed to oral . Patient will need to continue oral antibiotics at the facility/Doxycycline and Levaquin to complete the course of treatment. Supplemental oxygen titrated to keep pulse oximetry above 92%. Bronchodilator treatment provided as needed. BiPAP provided at night. Lasix was continued with close monitoring of volumes, renal parameters , electrolytes and monitoring of peripheral edema. Blood pressure was managed with calcium channel joe. Seizure precaution maintained. Keppra continued. No evidence of seizure activity while in the hospital. Patient was counseled on smoking cessation. Patient declined nicotine patch. DVT prophylaxis provided. Pain management was addressed as needed. Bowel regimen instituted. Psychiatrist seen and evaluated patient . Per psychiatrist patient had major depressive disorder, mild recurrent, without psychotic features and possible generalized anxiety disorder . Psychiatric medication regimen optimized as per psychiatrist. Cognitive behavioral therapy provided. Patient clinically stabilized and was ready for [facility] for [facility] of care. FINAL DIAGNOSES: Surgical site infection with MRSA and Klebsiella Cellulitis Small area of dehiscence of surgical wound Status post recent panniculectomy COPD Obstructive sleep apnea Morbid obesity History of CVA Peripheral edema Hypertension Seizure disorder Tobacco abuse Major depressive disorder, mild, recurrent, without psychotic features Possible generalized anxiety disorder DISCHARGE MEDICATIONS: See Medication Reconciliation list. DISCHARGE INSTRUCTIONS: Patient was discharged to the prison facility. Follow up with medical doctor at the facility. Kiera Vivar NP Mar 17, 2019 10:30
[2019-03-19 05:46] LABS: BASOPHILS % (AUTO) 0.7 % (0.0-2.0); EOSINOPHILS % (AUTO) 2.6 % (0.0-3.0); HEMATOCRIT 32.2 % (42.0-52.0); HEMOGLOBIN 10.1 G/DL (14.2-18.0); LYMPHOCYTES % (AUTO) 21.7 % (20.0-45.0); MEAN CORPUSCULAR VOLUME 88 FL (80-99); MONOCYTES % (AUTO) 6.3 % (1.0-10.0); NEUTROPHILS % (AUTO) 68.7 % (45.0-75.0); PLATELET COUNT 381 K/UL (150-450); RED BLOOD COUNT 3.65 M/UL (4.70-6.10); RED CELL DISTRIBUTION WIDTH 14.9 % (11.6-14.8); WHITE BLOOD COUNT 11.4 K/UL (4.8-10.8)
[2019-03-19 06:29] LABS: % IRON SATURATION 17 % (15-50); IRON 33 ug/dL (50-175); TOTAL IRON BINDING CAPACITY 200 ug/dL (250-450)
[2019-03-19 07:01] LABS: ANION GAP 8 mmol/L (5-15); BLOOD UREA NITROGEN 20 mg/dL (7-18); CALCIUM 9.1 MG/DL (8.5-10.1); CARBON DIOXIDE 30 MMOL/L (21-32); CHLORIDE 101 MMOL/L (98-107); CREATININE 0.8 MG/DL (0.55-1.30); FERRITIN 126 NG/ML (8-388); LACTATE DEHYDROGENASE 303 U/L (81-234); POTASSIUM 4.7 MMOL/L (3.5-5.1); SODIUM 138 MMOL/L (136-145)
== END 2019-03-16 17:52 | DRG 863 ==
LOC: EDBD 16:03 → EDBEDREQ 16:55 → EMR 17:06 → 4E 17:09 → EDBEDREQ 17:18 → UNDODISIN 03-12 23:43
DX: T81.49XA Infection following a procedure, other surgical site, initial encounter (principal); Z68.44 Body mass index [BMI] 60.0-69.9, adult; L03.311 Cellulitis of abdominal wall; T81.31XA Disruption of external operation (surgical) wound, not elsewhere classified, initial encounter; F33.9 Major depressive disorder, recurrent, unspecified; E66.01 Morbid (severe) obesity due to excess calories; J44.9 Chronic obstructive pulmonary disease, unspecified; I11.0 Hypertensive heart disease with heart failure; I50.9 Heart failure, unspecified; D64.9 Anemia, unspecified; Z86.73 Personal history of transient ischemic attack (TIA), and cerebral infarction without residual deficits; F31.9 Bipolar disorder, unspecified; Z72.0 Tobacco use; F41.9 Anxiety disorder, unspecified; G40.909 Epilepsy, unspecified, not intractable, without status epilepticus; E11.9 Type 2 diabetes mellitus without complications; M48.9 Spondylopathy, unspecified; G47.33 Obstructive sleep apnea (adult) (pediatric)
CPT/HCPCS: 36415; 80048; 80053; 80202; 80299; 82607; 82728; 83540; 83550; 83615; 83690; 84443; 85007; 85025; 85044; 85060; 85610; 85730; 87070; 87081; 87181; 87205; 94664; 96365; 96366; 96375; 97803; 99285; J2405

== ENCOUNTER 2019-03-17 22:27 | Inpatient (IN) | payer MEDICARE, MEDICAID ==
[~2019-03-17] VITALS: Ht 182.9 cm; Wt 204.1 kg
[~2019-03-17 22:27] MED LIST changes: +DILAUDID 44 MG/1 M3 PO; +FENTANYL1 EAC1 TOPIC; +LEVAQUIN750 MG ORAL; +NORCO 5-325 TA1 EACH ORAL; +VIBRAMYCIN100 MG ORAL
--- NOTE | 2019-03-17 22:37 | NUR ---
ED Nurse Note: [facility] kayli leg pain and vomiting with abd pain, pt reports it has been going on for a while and pt reports he came to hospital because staff from community [facility] cannot take care of him. pt AA&ox4, gcs=15, noted mild swelling on BLE with dried scab on top, noted dry yellow calluses with crack, noted tenderness, will cont monitor. vss. sinus rhythm on monitoring and evaluation advisor.
[2019-03-17 22:42] VITALS: BP 139/81
--- NOTE | 2019-03-17 22:42 | NUR ---
ED Nurse Note: pt morbidly obese.
--- NOTE | 2019-03-17 22:45 | NUR ---
ED Nurse Note: pt reports he was vomiting at the faciliy all day but no active nausea nor vomiting noted at this time.
--- NOTE | 2019-03-17 22:45 | NUR ---
ED Nurse Note: asked pt if pt will received pain medication, pt initially stated he will take the pain medication but refused at the bedside, pt reports 2mg dilaudid doesn't work IM, MASOND notified. med returned and witnessed by MICAELA Hussein.
--- NOTE | 2019-03-17 22:55 | NUR ---
ED Nurse Note: PT CONSTANTLY CALLING OUT FOR NURSE, CALLING MY NAME AND ASKING FOR PAIN MEDS IV, I HAD PT IN THE PAST SO HE KEEPS CALLING , KANIKA ORDERED IM INJECTION AND PT IS THRREATNING TO GET OUT OF BED AND FALLING TO STAY HERE, PT STATES HE DOES NOT WANT TO GO BACK TO FACILITY, MD AND CHARGE NURSE ALSO PRIMARY NURSE IS AWARE.
--- NOTE | 2019-03-17 23:55 | NUR ---
ED Nurse Note: pt states he is still in pain and reports he will take the injection mediation. pt advised that new order needed for pain medication since pt refused initially. ERMD notified. will wait for further orders.
[2019-03-18 00:17] LABS: BASOPHILS % (AUTO) 0.6 % (0.0-2.0); EOSINOPHILS % (AUTO) 0.8 % (0.0-3.0); HEMATOCRIT 32.9 % (42.0-52.0); HEMOGLOBIN 10.5 G/DL (14.2-18.0); LYMPHOCYTES % (AUTO) 26.5 % (20.0-45.0); MEAN CORPUSCULAR VOLUME 86 FL (80-99); MONOCYTES % (AUTO) 3.2 % (1.0-10.0); NEUTROPHILS % (AUTO) 68.9 % (45.0-75.0); PLATELET COUNT 416 K/UL (150-450); RED BLOOD COUNT 3.83 M/UL (4.70-6.10); RED CELL DISTRIBUTION WIDTH 14.3 % (11.6-14.8)
[2019-03-18 00:34] LABS: ANION GAP 7 mmol/L (5-15); BLOOD UREA NITROGEN 15 mg/dL (7-18); CALCIUM 9.5 MG/DL (8.5-10.1); CARBON DIOXIDE 33 MMOL/L (21-32); CHLORIDE 101 MMOL/L (98-107); CREATININE 0.9 MG/DL (0.55-1.30); POTASSIUM 3.8 MMOL/L (3.5-5.1); SODIUM 141 MMOL/L (136-145)
[2019-03-18 01:42] VITALS: BP 142/86
--- NOTE | 2019-03-18 01:43 | NUR ---
ED Nurse Note: REPORT GIVEN TO MICAELA SORIANO FROM [facility].
[2019-03-18] MEDS ORDERED: ACETAMINOPHEN325 M1 ORAL (01:49)
[2019-03-18] MEDS ORDERED: FUROSEMIDE20 M1 ORAL (01:49)
[2019-03-18] MEDS ORDERED: KEPPRA1000 MG ORAL (01:49)
[2019-03-18] MEDS ORDERED: DILAUDID PO (01:49)
[2019-03-18] MEDS ORDERED: DURAGESIC1 EAC1 TDERMAL (01:49)
[2019-03-18] MEDS ORDERED: NORVASC5 MG ORAL (01:49)
[2019-03-18] MEDS ORDERED: HEPARIN SO5000 UNIT2 SUBQ (01:49)
--- NOTE | 2019-03-18 02:00 | NUR ---
ED Nurse Note: PT TRANSFERRED TO [facility] VIA GURNEY BY SINDI AND RN JORGE, REPORT GIVEN, CARE ENDORSED TO [facility] STAFF, ALL BELONGINGS SENT W/ PT W/ COMPLETED LIST, IV INTACT AND PATENT, VSS.
--- NOTE | 2019-03-18 03:34 | Emergency Room Report ---
History of Present Illness General Chief Complaint: Vomiting Source: Patient Present Illness HPI Patient presents with complaints of intractable lower abdominal pain Reports that after his surgery he has had difficult time getting the pain of the control Denies any vomiting or diarrhea denies any fevers or chills Pain is 10 out of 10 localized to the lower abdomen Allergies: Coded Allergies: ASPIRIN (Verified Allergy, Unknown, 07/14/18) KETOROLAC (Verified Allergy, Unknown, 07/14/18) PENICILLINS (Verified Allergy, Unknown, 12/23/18) tolerated Ancef on 08/2018 Patient History Past Medical History: see triage record Reviewed Nursing Documentation: PMH: Agreed; PSxH: Agreed Nursing Documentation-PMH Past Medical History: No History, Except For Hx Hypertension: Yes Hx COPD: Yes Hx Cancer: No Hx Gastrointestinal Problems: Yes - s/p abd surgery ,open wound Hx Neurological Problems: Yes Hx Seizures: Yes - EPILEPSY Review of Systems All Other Systems: negative except mentioned in HPI Physical Exam Vital Signs Date Time Temp Pulse Resp B/P (MAP) Pulse Ox O2 Delivery O2 Flow Rate FiO2 03/17/19 22:26 99.1 78 18 139/81 (100) 93 Room Air Sp02 EP Interpretation: reviewed, normal General Appearance: no apparent distress - Morbidly obese Head: normocephalic, atraumatic Eyes: bilateral eye PERRL, bilateral eye EOMI ENT: normal pharynx Neck: supple Respiratory: lungs clear, no respiratory distress Cardiovascular #1: regular rate, rhythm Gastrointestinal: other - Surgical scar lower abdomen healing well no obvious fluctuance, dressing on the right lower abdomen Musculoskeletal: swelling - Diffusely Neurologic: alert, oriented x3 Skin: other - Healing surgical sites Lymphatic: no adenopathy Medical Decision Making Diagnostic Impression: Primary Impression: Intractable pain Additional Impression: Morbid obesity ER Course Given the patient's history and presentation blood work is initiated all within normal limits patient was provided with pain medication Reports that he does not feel comfortable at the nursing facility reports that his pain is not being controlled and he cannot return to the facility patient admitted for further evaluation Labs Test 03/18/19 00:05 White Blood Count 11.0 K/UL (4.8-10.8) Red Blood Count 3.83 M/UL (4.70-6.10) Hemoglobin 10.5 G/DL (14.2-18.0) Hematocrit 32.9 % (42.0-52.0) Mean Corpuscular Volume 86 FL (80-99) Mean Corpuscular Hemoglobin 27.4 PG (27.0-31.0) Mean Corpuscular Hemoglobin Concent 31.9 G/DL (32.0-36.0) Red Cell Distribution Width 14.3 % (11.6-14.8) Platelet Count 416 K/UL (150-450) Mean Platelet Volume 4.1 FL (6.5-10.1) Neutrophils (%) (Auto) 68.9 % (45.0-75.0) Lymphocytes (%) (Auto) 26.5 % (20.0-45.0) Monocytes (%) (Auto) 3.2 % (1.0-10.0) Eosinophils (%) (Auto) 0.8 % (0.0-3.0) Basophils (%) (Auto) 0.6 % (0.0-2.0) Sodium Level 141 MMOL/L (136-145) Potassium Level 3.8 MMOL/L (3.5-5.1) Chloride Level 101 MMOL/L (98-107) Carbon Dioxide Level 33 MMOL/L (21-32) Anion Gap 7 mmol/L (5-15) Blood Urea Nitrogen 15 mg/dL (7-18) Creatinine 0.9 MG/DL (0.55-1.30) Estimat Glomerular Filtration Rate > 60 mL/min (>60) Glucose Level 95 MG/DL (74-106) Calcium Level 9.5 MG/DL (8.5-10.1) Last Vital Signs Date Time Temp Pulse Resp B/P (MAP) Pulse Ox O2 Delivery O2 Flow Rate FiO2 03/18/19 03:21 Room Air 03/18/19 02:00 98.6 93 20 138/56 98 Status: improved Disposition: ADMITTED INPATIENT Condition: Serious Referrals: Ernesto Nicole DO (PCP) Vadim Arriaza DO Mar 18, 2019 03:34
[2019-03-18 04:00] VITALS: BP 158/90
[2019-03-18] MEDS ORDERED: Naloxone 0.4mg/ml Inj IV PRN (04:30)
[2019-03-18] MEDS ORDERED: Miralax 17gm pkt ORAL PRN (04:30)
--- NOTE | 2019-03-18 06:39 | NUR ---
NURSE NOTES: Admitted a 53 year old, male, alert and oriented x4. With complaint of pain on the legs and surgical area on abdomen. Patient has lindsey catheter intact and draining well, secured with lindsey anchor. IV access on left AC. Patient refused wound care photos. Charge nurse Rakan made aware. Called Dr. Tang for admission orders 1st attempt was 3AM, 2nd attempt at 03:35 and 3rd attempt was 4am. Got a permission from [employer] Director Combat Plans Officer to call cellphone. Spoke to MD and obtained admission orders, including resume all orders prior to patient's last discharge. Patient has been asking for pain medicine. Medicated as ordered. Will continue to monitor.
--- NOTE | 2019-03-18 06:50 | NUR ---
NURSE NOTES: Per Dr. Tang, no DVT prophylaxis because of contraindications. Patient has swollen legs.
[2019-03-18 08:00] VITALS: BP 136/80
--- NOTE | 2019-03-18 08:55 | NUR ---
NURSE NOTES: Patient awake, alert x4, on room air, no sign of distress and shortness of breath; IV LAC 20G flushes well; Pires in place, drains well; side rails up x2, breaks engaged, call light within reach. will keep monitoring.
[2019-03-18] MEDS: DULoxetine 30mg cap ORAL SCH (09:12)
--- NOTE | 2019-03-18 09:28 | General Progress Note ---
Assessment/Plan Assessment/Plan: (1) Lumbar DDD (2) Lumbar Spondylosis (3) Lumbar Radiculopathy (4) Morbid Obesity (5) Right knee pain (6) Right knee OA h/o ORIF (7) Abdominal pain (8) Panniculus with panniculitis s/p panniculectomy Patient will be continued on Dilaudid and Fentanyl patch D/w Dr. Magaña and he concurred. Subjective Date patient seen: Mar 18, 2019 Time patient seen: 08:00 - AM Allergies: Coded Allergies: ASPIRIN (Verified Allergy, Unknown, 07/14/18) KETOROLAC (Verified Allergy, Unknown, 07/14/18) PENICILLINS (Verified Allergy, Unknown, 12/23/18) tolerated Ancef on 08/2018 Subjective REVIEW OF SYSTEMS: Denies rash, fever, chills, sweating, dizziness, drowsiness, blurred vision, sore throat, change in weight. No nausea, vomiting, diarrhea, or blood in the stool or urine. No bowel or bladder incontinence. No dysuria. He is complaining of low back pain and abdominal pain SUBJECTIVE: Patient is a known patient admitted under the care fo Dr. Tang, s/p panniculectomy and is here to f/u with the surgeon. He has been transferred form SNF where he had been on Fentanyl patch 50mcg Q48H which has been restarted. Now on Dilaudid 3mg IV Q3H PRN severe pain. He is more comfortable at this time. Objective Last 24 Hour Vital Signs Date Time Temp Pulse Resp B/P (MAP) Pulse Ox O2 Delivery O2 Flow Rate FiO2 03/18/19 08:00 98.2 90 20 136/80 (98) 96 03/18/19 04:00 97.3 83 18 158/90 (112) 95 03/18/19 03:21 Room Air 03/18/19 02:00 98.6 93 20 138/56 98 Room Air 03/18/19 01:42 98.5 96 18 142/86 98 Room Air 03/18/19 00:43 99.1 03/17/19 22:42 96 20 Room Air 03/17/19 22:42 99.1 96 18 139/81 98 Room Air 03/17/19 22:26 99.1 78 18 139/81 (100) 93 Room Air Intake and Output 03/17/19 03/18/19 18:59 06:59 Intake Total 600 ml Output Total 580 ml Balance 20 ml Intake Oral 0 ml Other 600 ml Output Urine Total 580 ml # Bowel Movements 1 Laboratory Tests 03/18/19 00:05: White Blood Count 11.0H, Red Blood Count 3.83L, Hemoglobin 10.5L, Hematocrit 32.9L, Mean Corpuscular Volume 86, Mean Corpuscular Hemoglobin 27.4, Mean Corpuscular Hemoglobin Concent 31.9L, Red Cell Distribution Width 14.3, Platelet Count 416, Mean Platelet Volume 4.1L, Neutrophils (%) (Auto) 68.9, Lymphocytes (%) (Auto) 26.5, Monocytes (%) (Auto) 3.2, Eosinophils (%) (Auto) 0.8, Basophils (%) (Auto) 0.6, Sodium Level 141, Potassium Level 3.8, Chloride Level 101, Carbon Dioxide Level 33H, Anion Gap 7, Blood Urea Nitrogen 15, Creatinine 0.9, Estimat Glomerular Filtration Rate > 60, Glucose Level 95, Calcium Level 9.5 Height (Feet): 6 Height (Inches): 0.00 Weight (Pounds): 485 Objective GENERAL: Alert, awake, and oriented x3. LUNGS: Decreased breath sounds bilaterally. HEART: S1 and S2, regular. ABDOMEN: Obese, bandages noted with tenderness to palpation. EXTREMITIES: No cyanosis. No clubbing. No edema. NEURO: No changes. Eliezer Nicole Mar 18, 2019 09:28
[2019-03-18 12:00] VITALS: BP 139/95
[2019-03-18] MEDS: fentaNYL Destruction MISC SCH (12:00)
--- NOTE | 2019-03-18 12:04 | Pulmonology Progress Note ---
Assessment/Plan Problems: (1) Abdominal wall cellulitis (2) ADALBERTO (obstructive sleep apnea) (3) Status post panniculectomy (4) COPD (chronic obstructive pulmonary disease) (5) Seizures (6) Intractable pain (7) Cerebrovascular accident (8) Lumbar spondylosis (9) Morbid obesity Assessment/Plan wound care iv abx respiratory treatment check electrolytes pt/ot Subjective ROS Limited/Unobtainable: No Constitutional: Reports: no symptoms HEENT: Repors: no symptoms Respiratory: Reports: no symptoms Allergies: Coded Allergies: ASPIRIN (Verified Allergy, Unknown, 07/14/18) KETOROLAC (Verified Allergy, Unknown, 07/14/18) PENICILLINS (Verified Allergy, Unknown, 12/23/18) tolerated Ancef on 08/2018 Objective Last 24 Hour Vital Signs Date Time Temp Pulse Resp B/P (MAP) Pulse Ox O2 Delivery O2 Flow Rate FiO2 03/18/19 09:43 98.2 03/18/19 09:12 90 136/80 03/18/19 08:00 98.2 90 20 136/80 (98) 96 03/18/19 04:00 97.3 83 18 158/90 (112) 95 03/18/19 03:21 Room Air 03/18/19 02:00 98.6 93 20 138/56 98 Room Air 03/18/19 01:42 98.5 96 18 142/86 98 Room Air 03/18/19 00:43 99.1 03/17/19 22:42 96 20 Room Air 03/17/19 22:42 99.1 96 18 139/81 98 Room Air 03/17/19 22:26 99.1 78 18 139/81 (100) 93 Room Air Intake and Output 03/17/19 03/18/19 18:59 06:59 Intake Total 600 ml Output Total 580 ml Balance 20 ml Intake Oral 0 ml Other 600 ml Output Urine Total 580 ml # Bowel Movements 1 HEENT: normocephalic, atraumatic Respiratory/Chest: chest wall non-tender, lungs clear Cardiovascular: normal peripheral pulses, regular rhythm, no JVD Abdomen: no organomegaly, no scars Skin: other - open surgical wounds Microbiology Date/Time Source Procedure Growth Status 03/18/19 02:00 Rectum Received Laboratory Tests 03/18/19 00:05: White Blood Count 11.0H, Red Blood Count 3.83L, Hemoglobin 10.5L, Hematocrit 32.9L, Mean Corpuscular Volume 86, Mean Corpuscular Hemoglobin 27.4, Mean Corpuscular Hemoglobin Concent 31.9L, Red Cell Distribution Width 14.3, Platelet Count 416, Mean Platelet Volume 4.1L, Neutrophils (%) (Auto) 68.9, Lymphocytes (%) (Auto) 26.5, Monocytes (%) (Auto) 3.2, Eosinophils (%) (Auto) 0.8, Basophils (%) (Auto) 0.6, Sodium Level 141, Potassium Level 3.8, Chloride Level 101, Carbon Dioxide Level 33H, Anion Gap 7, Blood Urea Nitrogen 15, Creatinine 0.9, Estimat Glomerular Filtration Rate > 60, Glucose Level 95, Calcium Level 9.5 Current Medications Medications (Trade) Dose Ordered Sig/Luis Route PRN Reason Start Time Stop Time Status Last Admin Dose Admin Acetaminophen (Tylenol) 650 mg Q4H PRN ORAL Mild Pain/Temp > 100.5 03/18/19 04:30 04/17/19 04:29 Amlodipine Besylate (Norvasc) 5 mg DAILY ORAL 03/18/19 09:00 04/17/19 08:59 03/18/19 09:12 Duloxetine HCl (Cymbalta) 30 mg DAILY ORAL 03/18/19 09:00 04/17/19 08:59 03/18/19 09:12 Fentanyl (Duragesic) 1 patch Q48H TDERMAL 03/18/19 12:00 03/25/19 11:59 Furosemide (Lasix) 10 mg EVERY 8 HOURS ORAL 03/18/19 06:00 04/17/19 05:59 03/18/19 05:30 Hydromorphone HCl (Dilaudid) 3 mg Q3H PRN IVP Severe Pain (Pain Scale 7-10) 03/18/19 04:30 03/25/19 04:29 03/18/19 09:13 Levetiracetam (Keppra) 1,000 mg EVERY 8 HOURS ORAL 03/18/19 06:00 04/17/19 05:59 03/18/19 05:29 Miscellaneous Medication (fentaNYL Destruction) 1 ea Q48H MISC 03/18/19 12:00 04/17/19 11:59 Naloxone HCl (Narcan) 0.1 mg PRN IV Sedation scale 3 or 4 03/18/19 04:30 Ondansetron HCl (Zofran) 4 mg Q6H PRN IVP Nausea & Vomiting 03/18/19 04:30 04/17/19 04:29 Polyethylene Glycol (Miralax) 17 gm DAILY PRN ORAL Constipation 03/18/19 04:30 04/17/19 04:29 Bill Dixon MD Mar 18, 2019 12:04
--- NOTE | 2019-03-18 12:43 | NUR ---
CASE MANAGEMENT: INITIAL REVIEW 53 YO M BRIA FROM [facility] CC: VOMITING PMHx: HTN. SI:INTRACTABLE PAIN. T 99.1 HR 78 RR 18 B/P 139/81 SATS 93% ON RA WBC 11 CO2 33 IS: DILAUDID IV X1 ZOFRAN IV X1 DILAUDID IM X1 PATIENT ADMITTED TO MED/SURG 03/18/2019 @ 0108 DCP: PATIENT TO BE DISCHARGED TO SNF ONCE MEDICALLY CLEARED. Addendum: 03/18/19 at 1725 by Emi Villatoro INTERQUAL MET
[2019-03-18 16:00] VITALS: BP 144/89
--- NOTE | 2019-03-18 17:14 | Consultation ---
History of Present Illness General Date patient seen: Mar 18, 2019 Reason for Hospitalization: Vomiting Present Illness HPI This is a 53-year-old male well-known to me from prior admissions and surgical intervention along with past surgery. Patient currently re-admitted for care and management and during admission surgery called to evaluate wound and assist with care. Patient seen, patient evaluated, chart reviewed. Patient was just discharged to SNF but states they cannot manage his care there and was very upset. He caused a scene and given distress was brought back to [facility] and was admitted for care. Please review prior consults and admission notes for details. He is very difficult case and care because he requiring a major operation to help with quality of life and improvement but has yet to recover. he does not adhere to medical plan and care plan. he eats what he wants and has candy and soda at his bedside all the time. has friends bring him food that he should not be eating. only prefers IV pain medication and is very disruptive if he does not get it. he has since developed wounds in his surgical site and requires care. lawrence removed last admission Allergies: Coded Allergies: ASPIRIN (Verified Allergy, Unknown, 07/14/18) KETOROLAC (Verified Allergy, Unknown, 07/14/18) PENICILLINS (Verified Allergy, Unknown, 12/23/18) tolerated Ancef on 08/2018 Medication History Scheduled Amlodipine Besylate (Norvasc), 5 MG ORAL DAILY, (Reported) Amlodipine Besylate* (Amlodipine Besylate*), 5 MG ORAL DAILY, (Reported) Clopidogrel* (Clopidogrel*), 75 MG ORAL DAILY, (Reported) Docusate Sodium* (Docusate Sodium*), 100 MG ORAL DAILY, (Reported) Doxycycline Hyclate* (Vibramycin*), 100 MG ORAL BID, (Reported) Duloxetine Hcl* (Cymbalta*), 60 MG ORAL DAILY, (Reported) Duloxetine Hcl* (Cymbalta*), 30 MG ORAL DAILY, (Reported) Fentanyl 50MCG Patch (Fentanyl 50MCG Patch*), 1 PATCH TOPIC EVERY 48 Hours, ( Reported) Fentanyl 50MCG Patch* (Duragesic 50MCG*), 1 PATCH TDERMAL EVERY 48 HR, (Reported ) Furosemide* (Lasix*), 10 MG ORAL Q8HR, (Reported) Furosemide* (Lasix*), 10 MG ORAL DAILY, (Reported) Gabapentin* (Gabapentin*), 900 MG ORAL THREE TIMES A DAY, (Reported) Heparin Sod (Porcine) (Heparin Sodium*), 5,000 UNITS SUBQ EVERY 12 HOURS, ( Reported) Lactobacillus Acidophilus (Acidophilus), 1 EACH PO BID, (Reported) Levetiracetam (Keppra), 1,000 MG ORAL Q8HR, (Reported) Levetiracetam (Keppra), 1,000 MG ORAL Q8HR, (Reported) Levofloxacin* (Levaquin*), 750 MG ORAL DAILY, (Reported) Methadone Hcl* (Methadone*), 10 MG ORAL Q6HR, (Reported) Nitroglycerin (Nitro-Bid*), 1 INCH TOPIC Q8HR, (Reported) Pantoprazole* (Protonix*), 40 MG ORAL ACBREAKFAST, (Reported) Sennosides (Senna), 2 TAB PO HS, (Reported) [Dilaudid], 4 MG PO Q3HR, (Reported) Scheduled PRN Acetaminophen* (Acetaminophen 325MG Tablet*), 650 MG ORAL Q4H PRN for Mild Pain/ Temp > 100.5, (Reported) Acetaminophen* (Acetaminophen 325MG Tablet*), 650 MG ORAL Q4H PRN for Mild Pain (Pain Scale 1-3), (Reported) Hydrocodone Bit/Acetaminophen 5-325* ([place] 5-325*), 2 TAB ORAL Q6H PRN for For Pain, (Reported) Hydromorphone HCl/Pf (Dilaudid 4 mg/ml Syringe), 4 MG PO Q4HR PRN for For Pain, (Reported) Ondansetron* (Zofran*), 4 MG ORAL Q4HR PRN for Nausea & Vomiting, (Reported) Polyethylene Glycol 3350* (Miralax*), 17 GM ORAL DAILY PRN for Constipation, ( Reported) Discontinued Medications Amlodipine Besylate* (Amlodipine Besylate*), 5 MG ORAL DAILY, (Reported) Discontinued Reason: MD discontinued med Enoxaparin* (Lovenox*), 40 MG SUBQ DAILY, (Reported) Discontinued Reason: MD discontinued med Fentanyl (Fentanyl), 1 PATCH TOPIC EVERY 72 HOURS, (Reported) Discontinued Reason: MD discontinued med Hydromorphone HCl/Pf (Dilaudid 0.5 mg/0.5 ml Syringe), 0.5 MG IJ EVERY 3 HOURS PRN for For Pain, (Reported) Discontinued Reason: MD discontinued med Levetiracetam (Levetiracetam), 1,000 MG ORAL TID, (Reported) Discontinued Reason: MD discontinued med Methocarbamol* (Methocarbamol*), 500 MG ORAL Q8HR PRN for For Pain, (Reported) Discontinued Reason: MD discontinued med Miconazole Nitrate (Miconazole Nitrate), 1 APPLIC TOPIC Q12HR, (Reported) Discontinued Reason: MD discontinued med Ondansetron* (Zofran*), 4 MG IV Q6H PRN for Nausea & Vomiting, (Reported) Discontinued Reason: MD discontinued med Pantoprazole* (Pantoprazole*), 40 MG ORAL BID, (Reported) Discontinued Reason: MD discontinued med Patient History History Provided By: Patient, Medical Record, PMD Healthcare decision maker Resuscitation status Advanced Directive on File Past Medical/Surgical History Past Medical/Surgical History: (1) Intractable pain (2) Cellulitis (3) COPD (chronic obstructive pulmonary disease) (4) Morbid obesity (5) Lumbar spondylosis (6) Right heart failure (7) ADALBERTO (obstructive sleep apnea) (8) Abdominal pannus (9) Seizures (10) Cerebrovascular accident (11) Peripheral edema (12) Abdominal wall cellulitis (13) UTI (urinary tract infection) (14) Hyponatremia (15) Uncontrolled seizures (16) Knee osteomyelits, right Review of Systems Review of Symptoms General ROS: no weight loss or fever Psychological ROS: no depression or mood changes, no memory loss Ophthalmic ROS: no visual changes or eye irritation ENT ROS: no nasal congestion, hearing loss, dizziness Allergy and Immunology ROS: no allergic symptoms or urticaria Hematological and Lymphatic ROS: no swollen glands, unusual bleeding or bruising Endocrine ROS: no polyuria, polydipsia, weight changes, temperature intolerance Respiratory ROS: no cough, shortness of breath, or wheezing Cardiovascular ROS: no chest pain or dyspnea on exertion Gastrointestinal ROS: denies abdominal pain,no bright red blood in stool. Musculoskeletal ROS: no myalgias or arthralgias Neurological ROS: no TIA or stroke symptoms Dermatological ROS: no new or changing skin lesions, rashes or pruritis Physical Exam Physical Exam General appearance: alert, cooperative, no distress, appears stated age Head: Normocephalic, without obvious abnormality, atraumatic Eyes: conjunctivae/corneas clear. PERRL, EOM's intact. Fundi benign Throat: Lips, mucosa, and tongue normal. Teeth and gums normal Neck: supple, symmetrical, trachea midline, no adenopathy, thyroid: not enlarged, symmetric, no tenderness/mass/nodules, no carotid bruit and no JVD Lungs: clear to auscultation bilaterally Heart: regular rate and rhythm, S1, S2 normal, no murmur, click, rub or gallop Abdomen: soft, non-tender. Bowel sounds normal. No masses, no organomegaly Extremities: extremities normal, atraumatic, no cyanosis or edema Pulses: 2+ and symmetric Skin: Skin color, texture, turgor normal. No rashes or lesions Neurologic: Grossly normal Last 24 Hour Vital Signs Date Time Temp Pulse Resp B/P (MAP) Pulse Ox O2 Delivery O2 Flow Rate FiO2 03/18/19 16:44 97.8 03/18/19 16:00 97.8 77 20 144/89 (107) 98 03/18/19 12:00 97.7 78 20 139/95 (110) 96 03/18/19 09:12 90 136/80 03/18/19 09:00 Room Air 03/18/19 08:00 98.2 90 20 136/80 (98) 96 03/18/19 04:00 97.3 83 18 158/90 (112) 95 03/18/19 03:21 Room Air 03/18/19 02:00 98.6 93 20 138/56 98 Room Air 03/18/19 01:42 98.5 96 18 142/86 98 Room Air 03/18/19 00:43 99.1 03/17/19 22:42 96 20 Room Air 03/17/19 22:42 99.1 96 18 139/81 98 Room Air 03/17/19 22:26 99.1 78 18 139/81 (100) 93 Room Air Intake and Output 03/17/19 03/18/19 19:00 07:00 Intake Total 600 ml Output Total 580 ml Balance 20 ml Intake Oral 0 ml Other 600 ml Output Urine Total 580 ml # Bowel Movements 1 Laboratory Tests Test 03/18/19 00:05 White Blood Count 11.0 K/UL (4.8-10.8) H Red Blood Count 3.83 M/UL (4.70-6.10) L Hemoglobin 10.5 G/DL (14.2-18.0) L Hematocrit 32.9 % (42.0-52.0) L Mean Corpuscular Volume 86 FL (80-99) Mean Corpuscular Hemoglobin 27.4 PG (27.0-31.0) Mean Corpuscular Hemoglobin Concent 31.9 G/DL (32.0-36.0) L Red Cell Distribution Width 14.3 % (11.6-14.8) Platelet Count 416 K/UL (150-450) Mean Platelet Volume 4.1 FL (6.5-10.1) L Neutrophils (%) (Auto) 68.9 % (45.0-75.0) Lymphocytes (%) (Auto) 26.5 % (20.0-45.0) Monocytes (%) (Auto) 3.2 % (1.0-10.0) Eosinophils (%) (Auto) 0.8 % (0.0-3.0) Basophils (%) (Auto) 0.6 % (0.0-2.0) Sodium Level 141 MMOL/L (136-145) Potassium Level 3.8 MMOL/L (3.5-5.1) Chloride Level 101 MMOL/L (98-107) Carbon Dioxide Level 33 MMOL/L (21-32) H Anion Gap 7 mmol/L (5-15) Blood Urea Nitrogen 15 mg/dL (7-18) Creatinine 0.9 MG/DL (0.55-1.30) Estimat Glomerular Filtration Rate > 60 mL/min (>60) Glucose Level 95 MG/DL (74-106) Calcium Level 9.5 MG/DL (8.5-10.1) Microbiology Date/Time Source Procedure Growth Status 03/18/19 02:00 Rectum Received Height (Feet): 6 Height (Inches): 0.00 Weight (Pounds): 485 Medications Current Medications Medications (Trade) Dose Ordered Sig/Luis Route PRN Reason Start Time Stop Time Status Last Admin Dose Admin Acetaminophen (Tylenol) 650 mg Q4H PRN ORAL Mild Pain/Temp > 100.5 03/18/19 04:30 04/17/19 04:29 Amlodipine Besylate (Norvasc) 5 mg DAILY ORAL 03/18/19 09:00 04/17/19 08:59 03/18/19 09:12 Duloxetine HCl (Cymbalta) 30 mg DAILY ORAL 03/18/19 09:00 04/17/19 08:59 03/18/19 09:12 Fentanyl (Duragesic) 1 patch Q48H TDERMAL 03/18/19 12:00 03/25/19 11:59 Furosemide (Lasix) 10 mg EVERY 8 HOURS ORAL 03/18/19 06:00 04/17/19 05:59 03/18/19 15:04 Hydromorphone HCl (Dilaudid) 3 mg Q3H PRN IVP Severe Pain (Pain Scale 7-10) 03/18/19 04:30 03/25/19 04:29 03/18/19 16:14 Levetiracetam (Keppra) 1,000 mg EVERY 8 HOURS ORAL 03/18/19 06:00 04/17/19 05:59 03/18/19 15:03 Miscellaneous Medication (fentaNYL Destruction) 1 ea Q48H MISC 03/18/19 12:00 04/17/19 11:59 Naloxone HCl (Narcan) 0.1 mg PRN IV Sedation scale 3 or 4 03/18/19 04:30 Ondansetron HCl (Zofran) 4 mg Q6H PRN IVP Nausea & Vomiting 03/18/19 04:30 04/17/19 04:29 Polyethylene Glycol (Miralax) 17 gm DAILY PRN ORAL Constipation 03/18/19 04:30 04/17/19 04:29 Assessment/Plan Problem List: (1) Intractable pain ICD Codes: R52 - Pain, unspecified SNOMED: 42301147 (2) Cellulitis ICD Codes: L03.90 - Cellulitis, unspecified SNOMED: 415033010 (3) Abdominal wall cellulitis Assessment & Plan: surgical wound with cellulitis and some openings. still with abd wall pannus cellulitis afebrile leukocytosis exam unchanged over course of two days -IV abx -diet as tolerated recommend strict diet but does not adhere to plan packing and dressing to abd wounds TID and prn saturation wash wounds daily with NS thank you will follow with recs ICD Codes: L03.311 - Cellulitis of abdominal wall SNOMED: 99541336 Gt Fernandez 22, 2019 17:14
--- NOTE | 2019-03-18 18:33 | Consultation ---
History of Present Illness General Date patient seen: Mar 18, 2019 Chief Complaint: Vomiting Present Illness HPI 53 y/o M with hx of CVA, HTN, bipolar disorder w/ psychotic features, tobacco abuse, anxiety disorder, chronic pain, CHF, seizure disorder, COPD, morbid obesity, Dm2, HTN, SNF resident, s/p panniculectomy 02/01 w/ recent admission 03/03- 03/16 for surgical site infection (improved with antibiotics) comes back to ED On 03/17 as states SNF cannot manage his care and for pain control. Patient only wants IV pain medication and has been non compliant with diet recommendations for weight loss. Denied vomiting, diarrhea, f/c Patient recently admitted from 01/22-02/18 for panniculectomy and post-op care. Previously admitted from 12-14-12/27 for b/l leg cellulitis and panniculitis. Denied nausea/vomiting/diarrhea. Allergies: Coded Allergies: ASPIRIN (Verified Allergy, Unknown, 07/14/18) KETOROLAC (Verified Allergy, Unknown, 07/14/18) PENICILLINS (Verified Allergy, Unknown, 12/23/18) tolerated Ancef on 08/2018 Medication History Scheduled Amlodipine Besylate (Norvasc), 5 MG ORAL DAILY, (Reported) Amlodipine Besylate* (Amlodipine Besylate*), 5 MG ORAL DAILY, (Reported) Clopidogrel* (Clopidogrel*), 75 MG ORAL DAILY, (Reported) Docusate Sodium* (Docusate Sodium*), 100 MG ORAL DAILY, (Reported) Doxycycline Hyclate* (Vibramycin*), 100 MG ORAL BID, (Reported) Duloxetine Hcl* (Cymbalta*), 60 MG ORAL DAILY, (Reported) Duloxetine Hcl* (Cymbalta*), 30 MG ORAL DAILY, (Reported) Fentanyl 50MCG Patch (Fentanyl 50MCG Patch*), 1 PATCH TOPIC EVERY 48 Hours, ( Reported) Fentanyl 50MCG Patch* (Duragesic 50MCG*), 1 PATCH TDERMAL EVERY 48 HR, (Reported ) Furosemide* (Lasix*), 10 MG ORAL Q8HR, (Reported) Furosemide* (Lasix*), 10 MG ORAL DAILY, (Reported) Gabapentin* (Gabapentin*), 900 MG ORAL THREE TIMES A DAY, (Reported) Heparin Sod (Porcine) (Heparin Sodium*), 5,000 UNITS SUBQ EVERY 12 HOURS, ( Reported) Lactobacillus Acidophilus (Acidophilus), 1 EACH PO BID, (Reported) Levetiracetam (Keppra), 1,000 MG ORAL Q8HR, (Reported) Levetiracetam (Keppra), 1,000 MG ORAL Q8HR, (Reported) Levofloxacin* (Levaquin*), 750 MG ORAL DAILY, (Reported) Methadone Hcl* (Methadone*), 10 MG ORAL Q6HR, (Reported) Nitroglycerin (Nitro-Bid*), 1 INCH TOPIC Q8HR, (Reported) Pantoprazole* (Protonix*), 40 MG ORAL ACBREAKFAST, (Reported) Sennosides (Senna), 2 TAB PO HS, (Reported) [Dilaudid], 4 MG PO Q3HR, (Reported) Scheduled PRN Acetaminophen* (Acetaminophen 325MG Tablet*), 650 MG ORAL Q4H PRN for Mild Pain/ Temp > 100.5, (Reported) Acetaminophen* (Acetaminophen 325MG Tablet*), 650 MG ORAL Q4H PRN for Mild Pain (Pain Scale 1-3), (Reported) Hydrocodone Bit/Acetaminophen 5-325* ([place] 5-325*), 2 TAB ORAL Q6H PRN for For Pain, (Reported) Hydromorphone HCl/Pf (Dilaudid 4 mg/ml Syringe), 4 MG PO Q4HR PRN for For Pain, (Reported) Ondansetron* (Zofran*), 4 MG ORAL Q4HR PRN for Nausea & Vomiting, (Reported) Polyethylene Glycol 3350* (Miralax*), 17 GM ORAL DAILY PRN for Constipation, ( Reported) Discontinued Medications Amlodipine Besylate* (Amlodipine Besylate*), 5 MG ORAL DAILY, (Reported) Discontinued Reason: MD discontinued med Enoxaparin* (Lovenox*), 40 MG SUBQ DAILY, (Reported) Discontinued Reason: MD discontinued med Fentanyl (Fentanyl), 1 PATCH TOPIC EVERY 72 HOURS, (Reported) Discontinued Reason: MD discontinued med Hydromorphone HCl/Pf (Dilaudid 0.5 mg/0.5 ml Syringe), 0.5 MG IJ EVERY 3 HOURS PRN for For Pain, (Reported) Discontinued Reason: MD discontinued med Levetiracetam (Levetiracetam), 1,000 MG ORAL TID, (Reported) Discontinued Reason: MD discontinued med Methocarbamol* (Methocarbamol*), 500 MG ORAL Q8HR PRN for For Pain, (Reported) Discontinued Reason: MD discontinued med Miconazole Nitrate (Miconazole Nitrate), 1 APPLIC TOPIC Q12HR, (Reported) Discontinued Reason: MD discontinued med Ondansetron* (Zofran*), 4 MG IV Q6H PRN for Nausea & Vomiting, (Reported) Discontinued Reason: MD discontinued med Pantoprazole* (Pantoprazole*), 40 MG ORAL BID, (Reported) Discontinued Reason: MD discontinued med Patient History Healthcare decision maker Resuscitation status Advanced Directive on File Patient History Narrative Pmhx: as above Shx: reviewed Fhx: non contributory Review of Systems All Other Systems: negative except mentioned in HPI Physical Exam Physical Exam Narrative General appearance: alert, cooperative, no distress, appears stated age Head: Normocephalic, without obvious abnormality, atraumatic Eyes: conjunctivae/corneas clear. PERRL, EOM's intact. Fundi benign Throat: Lips, mucosa, and tongue normal. Teeth and gums normal Neck: supple, symmetrical, trachea midline, no adenopathy, thyroid: not enlarged, symmetric, no tenderness/mass/nodules, no carotid bruit and no JVD Lungs: clear to auscultation bilaterally Heart: regular rate and rhythm, S1, S2 normal, no murmur, click, rub or gallop Abdomen: soft, non-tender. Bowel sounds normal. No masses, no organomegaly Extremities: extremities normal, atraumatic, no cyanosis or edema Pulses: 2+ and symmetric Skin: Skin color, texture, turgor normal. No rashes or lesions Neurologic: Grossly normal Last 24 Hour Vital Signs Date Time Temp Pulse Resp B/P (MAP) Pulse Ox O2 Delivery O2 Flow Rate FiO2 03/18/19 16:44 97.8 03/18/19 16:00 97.8 77 20 144/89 (107) 98 03/18/19 12:00 97.7 78 20 139/95 (110) 96 03/18/19 09:12 90 136/80 03/18/19 09:00 Room Air 03/18/19 08:00 98.2 90 20 136/80 (98) 96 03/18/19 04:00 97.3 83 18 158/90 (112) 95 03/18/19 03:21 Room Air 03/18/19 02:00 98.6 93 20 138/56 98 Room Air 03/18/19 01:42 98.5 96 18 142/86 98 Room Air 03/18/19 00:43 99.1 03/17/19 22:42 96 20 Room Air 03/17/19 22:42 99.1 96 18 139/81 98 Room Air 03/17/19 22:26 99.1 78 18 139/81 (100) 93 Room Air Intake and Output 03/17/19 03/18/19 19:00 07:00 Intake Total 600 ml Output Total 580 ml Balance 20 ml Intake Oral 0 ml Other 600 ml Output Urine Total 580 ml # Bowel Movements 1 Laboratory Tests Test 03/18/19 00:05 White Blood Count 11.0 K/UL (4.8-10.8) H Red Blood Count 3.83 M/UL (4.70-6.10) L Hemoglobin 10.5 G/DL (14.2-18.0) L Hematocrit 32.9 % (42.0-52.0) L Mean Corpuscular Volume 86 FL (80-99) Mean Corpuscular Hemoglobin 27.4 PG (27.0-31.0) Mean Corpuscular Hemoglobin Concent 31.9 G/DL (32.0-36.0) L Red Cell Distribution Width 14.3 % (11.6-14.8) Platelet Count 416 K/UL (150-450) Mean Platelet Volume 4.1 FL (6.5-10.1) L Neutrophils (%) (Auto) 68.9 % (45.0-75.0) Lymphocytes (%) (Auto) 26.5 % (20.0-45.0) Monocytes (%) (Auto) 3.2 % (1.0-10.0) Eosinophils (%) (Auto) 0.8 % (0.0-3.0) Basophils (%) (Auto) 0.6 % (0.0-2.0) Sodium Level 141 MMOL/L (136-145) Potassium Level 3.8 MMOL/L (3.5-5.1) Chloride Level 101 MMOL/L (98-107) Carbon Dioxide Level 33 MMOL/L (21-32) H Anion Gap 7 mmol/L (5-15) Blood Urea Nitrogen 15 mg/dL (7-18) Creatinine 0.9 MG/DL (0.55-1.30) Estimat Glomerular Filtration Rate > 60 mL/min (>60) Glucose Level 95 MG/DL (74-106) Calcium Level 9.5 MG/DL (8.5-10.1) Microbiology Date/Time Source Procedure Growth Status 03/18/19 02:00 Rectum Received Height (Feet): 6 Height (Inches): 0.00 Weight (Pounds): 485 Medications Current Medications Medications (Trade) Dose Ordered Sig/Luis Route PRN Reason Start Time Stop Time Status Last Admin Dose Admin Acetaminophen (Tylenol) 650 mg Q4H PRN ORAL Mild Pain/Temp > 100.5 03/18/19 04:30 04/17/19 04:29 Amlodipine Besylate (Norvasc) 5 mg DAILY ORAL 03/18/19 09:00 04/17/19 08:59 03/18/19 09:12 Duloxetine HCl (Cymbalta) 30 mg DAILY ORAL 03/18/19 09:00 04/17/19 08:59 03/18/19 09:12 Fentanyl (Duragesic) 1 patch Q48H TDERMAL 03/18/19 12:00 03/25/19 11:59 Furosemide (Lasix) 10 mg EVERY 8 HOURS ORAL 03/18/19 06:00 04/17/19 05:59 03/18/19 15:04 Hydromorphone HCl (Dilaudid) 3 mg Q3H PRN IVP Severe Pain (Pain Scale 7-10) 03/18/19 04:30 03/25/19 04:29 03/18/19 16:14 Levetiracetam (Keppra) 1,000 mg EVERY 8 HOURS ORAL 03/18/19 06:00 04/17/19 05:59 03/18/19 15:03 Miscellaneous Medication (fentaNYL Destruction) 1 ea Q48H MISC 03/18/19 12:00 04/17/19 11:59 Naloxone HCl (Narcan) 0.1 mg PRN IV Sedation scale 3 or 4 03/18/19 04:30 Ondansetron HCl (Zofran) 4 mg Q6H PRN IVP Nausea & Vomiting 03/18/19 04:30 04/17/19 04:29 Polyethylene Glycol (Miralax) 17 gm DAILY PRN ORAL Constipation 03/18/19 04:30 04/17/19 04:29 Assessment/Plan Assessment/Plan: Abx: None Assessment: Surgical site infection; improving -03/05 wound cx : S.aureus, diptheroids -03/04 wound cx MRSA (S tetracycline, bactrim, Vancomycin),K. pna (R amp; otherwise S) 02/01 SP Panniculectomy Afebrile Mild leukocytosis Recent hx of B/l Leg cellulitis and panniculitis 12/2018 - in the setting of chronic venous stasis, s/p Rx Recent seizure episode 11/2018 -had L side weakness and spasticity CVA HTN bipolar disorder w/ psychotic features tobacco abuse anxiety disorder chronic pain CHF seizure disorder COPD morbid obesity Dm2 HTN SNF resident Plan: -Continue PO Doxycycline #9 (abx d #) and Levaquin #9 (abx d #) for SSI -03/17 SP DOxycycline #8, Levaquin #8 -/ SP IV Vancomycin #8, Ceftriaxone #5 -8/10 SP Cefepime #4 -7/15 SP IV Vancomycin #8 -7/11 SP Aztreonam #4 -7/ SP Fluconazole #5 - 01/07/19 SP IV Dapto d# 14 - 01/06/19 S/P Levofloxacin #7 - 12/25/18 sp Bactrim #4 and IV Ancef #3 for cellulitis -f/u cx -Monitor CBC/CMP, temperatures -Sx f/u -wound care per surgical team Thank you for this consultation. Will continue to follow along with you. Discussed with Alexa Robins M.D. Mar 18, 2019 18:33
--- NOTE | 2019-03-18 19:30 | NUR ---
NURSE NOTES: Received report from MICAELA Daly. Patient AAO x 4, breathing unlabored without distress, discomfort, or sob. Abdominal dressing intact,dry, and clean. IV site noted on left antecubital intact, dry, and patent. Claims pain 910, will follow up appropriately as ordered. Pires intact draining alber urine. Bed placed at the lowest with alarm, brake, and side rails up for safety. Refuses side rails to be padded. Explained purpose of padding the siderails and continues to refuse strongly. Call light reinforced to be used as needed for assistance. Will continue to monitor and provide care as ordered.
[2019-03-18 20:00] VITALS: BP 134/72
--- NOTE | 2019-03-18 20:00 | NUR ---
NURSE NOTES: According to MD Patterson, pictures for the surgical cite to be taken and uploaded on EMR. Order carried out as order given.
--- NOTE | 2019-03-18 20:07 | NUR ---
HAND-OFF: Report given to MICAELA Barrett.
[2019-03-18] MEDS ORDERED: HYDROMORPHONE HC4 M1 ORAL (20:14)
[2019-03-18] MEDS ORDERED: NITROSTAT0.4 M1 SL (20:14)
[2019-03-18] MEDS: Levofloxacin 750mg tab ORAL SCH (20:18)
[2019-03-18] MEDS: Doxycycline Monohydrate 100mg ORAL SCH (21:20)
[2019-03-19] VITALS: BP 130/76
--- NOTE | 2019-03-19 03:31 | History and Physical Report ---
DATE OF ADMISSION: 03/18/[address] Ernesto Nicole. This is Dr. Ernesto Nicole's patient. HISTORY OF PRESENT ILLNESS: The patient was just discharged and came back less than 48 hours for intractable pain. The patient has been complaining of pain all over and that is why the patient was readmitted, again refer to the recent H and P that was dictated, which acts as an H and P, this is just an addendum. The patient was discharged and came back less than 48 hours for intractable pain. The patient complained of pain all over. PAST MEDICAL HISTORY: Hypertension, chronic pain syndrome, seizure disorder, CVA, electrolyte imbalance, lumbar spondylosis, right heart failure, morbid obesity, and COPD. PAST SURGICAL HISTORY: Denies. ALLERGIES: Penicillin, ketorolac, and aspirin. MEDICATIONS: Dilaudid, Keppra, duloxetine, and amlodipine. FAMILY HISTORY: Noncontributory. SOCIAL HISTORY: Denies history of drugs or alcohol abuse. REVIEW OF SYSTEMS: HEENT: Denies headaches. RESPIRATORY: Denies shortness of breath. Denies cough. CARDIOVASCULAR: Denies chest pain. EXTREMITIES: Reports pain all over. PHYSICAL EXAMINATION: VITAL SIGNS: Temperature is 98.2, pulse 90, and blood pressure 136/80. GENERAL: The patient is morbidly obese. HEENT: PERRLA. CHEST: Clear to auscultation. ABDOMEN: Soft. Positive bowel sounds. No organomegaly. Does have edema. NEUROLOGIC: Generalized weakness. Reflexes on both sides. LABORATORY AND DIAGNOSTIC DATA: WBC of 11 and hemoglobin 10.5. Sodium 141, potassium 3.8, BUN of 15, and creatinine 0.9. ASSESSMENT AND PLAN: 1. Chronic pain. 2. Intractable pain. I have asked Dr. Magaña to see the patient. Vadim Tang M.D. DR: Angelito JOB#: [id number] CC:
[2019-03-19 04:00] VITALS: BP 129/69
--- NOTE | 2019-03-19 05:30 | NUR ---
NURSE NOTES: Abdominal dressing change performed as ordered. Patient tolerated the procedure well. Explained procedure before and during the process. Will continue to monitor and provide care as ordered.
--- NOTE | 2019-03-19 07:47 | NUR ---
HAND-OFF: Report given to MICAELA Chan.
--- NOTE | 2019-03-19 07:49 | NUR ---
NURSE NOTES: Received pt in bed, sleeping. No s/s of distress. IV on L AC 20g, intact with saline lock. Bed in the lowest, locked, and alarm on. Call light within reach. Will continue to monitor
[2019-03-19 08:00] VITALS: BP 119/74
[2019-03-19] MEDS: DULoxetine 30mg cap ORAL SCH (08:19)
[2019-03-19] MEDS: Doxycycline Monohydrate 100mg ORAL SCH ×2 (08:19→21:06)
[2019-03-19] MEDS: Levofloxacin 750mg tab ORAL SCH (08:19)
--- NOTE | 2019-03-19 09:01 | General Progress Note ---
Assessment/Plan Problem List: (1) Intractable pain ICD Codes: R52 - Pain, unspecified SNOMED: 90610759 (2) Cellulitis ICD Codes: L03.90 - Cellulitis, unspecified SNOMED: 640723620 (3) COPD (chronic obstructive pulmonary disease) ICD Codes: J44.9 - Chronic obstructive pulmonary disease, unspecified SNOMED: 31718391 (4) Morbid obesity ICD Codes: E66.01 - Morbid (severe) obesity due to excess calories SNOMED: 166629371 (5) Lumbar spondylosis ICD Codes: M47.816 - Spondylosis without myelopathy or radiculopathy, lumbar region SNOMED: 764965481 (6) Right heart failure ICD Codes: I50.810 - Right heart failure, unspecified SNOMED: 628143013 (7) ADALBERTO (obstructive sleep apnea) ICD Codes: G47.33 - Obstructive sleep apnea (adult) (pediatric) SNOMED: 26234226 (8) Abdominal pannus ICD Codes: E65 - Localized adiposity SNOMED: 2785739381528 (9) Seizures ICD Codes: R56.9 - Unspecified convulsions SNOMED: 30160189 (10) Cerebrovascular accident ICD Codes: I63.9 - Cerebral infarction, unspecified SNOMED: 075985706 (11) Peripheral edema ICD Codes: R60.9 - Edema, unspecified SNOMED: 971089882 (12) Abdominal wall cellulitis ICD Codes: L03.311 - Cellulitis of abdominal wall SNOMED: 88230035 (13) UTI (urinary tract infection) ICD Codes: N39.0 - Urinary tract infection, site not specified SNOMED: 46015119 (14) Uncontrolled seizures ICD Codes: R56.9 - Unspecified convulsions SNOMED: 46174231 Status: stable, progressing Assessment/Plan: pt diet wound care pain control cbc bp am Subjective Constitutional: Reports: weakness Allergies: Coded Allergies: ASPIRIN (Verified Allergy, Unknown, 07/14/18) KETOROLAC (Verified Allergy, Unknown, 07/14/18) PENICILLINS (Verified Allergy, Unknown, 12/23/18) tolerated Ancef on 08/2018 All Systems: reviewed and negative except above Subjective c/o moderate general pain Objective Last 24 Hour Vital Signs Date Time Temp Pulse Resp B/P (MAP) Pulse Ox O2 Delivery O2 Flow Rate FiO2 03/19/19 08:19 84 119/74 03/19/19 08:00 97.9 84 18 119/74 (89) 03/19/19 04:00 97.3 73 19 129/69 (89) 98 03/19/19 00:00 98.1 85 19 130/76 (94) 97 03/18/19 21:00 Room Air 03/18/19 20:00 96.6 79 20 134/72 (92) 95 03/18/19 16:44 97.8 03/18/19 16:00 97.8 77 20 144/89 (107) 98 03/18/19 12:00 97.7 78 20 139/95 (110) 96 03/18/19 09:12 90 136/80 03/18/19 09:00 Room Air Intake and Output 03/18/19 03/19/19 19:00 07:00 Intake Total 1400 ml Output Total 1200 ml 1000 ml Balance 200 ml -1000 ml Intake Oral 1400 ml Output Urine Total 1200 ml 1000 ml # Bowel Movements 1 Height (Feet): 6 Height (Inches): 0.00 Weight (Pounds): 485 General Appearance: alert EENT: normal ENT inspection Neck: normal alignment Cardiovascular: normal peripheral pulses, normal rate, regular rhythm Respiratory/Chest: chest wall non-tender, lungs clear, normal breath sounds Abdomen: normal bowel sounds, distended Extremities: normal inspection Edema: 1+ Arm (L), 1+ Arm (R), 1+ Leg (L), 1+ Leg (R), 1+ Pedal (L), 1+ Pedal ( R), 1+ Generalized Edema: trace edema Neurologic: responsive, motor weakness Skin: normal pigmentation, warm/dry Ernesto Nciole DO Mar 19, 2019 09:01
--- NOTE | 2019-03-19 09:30 | NUR ---
NURSE NOTES: Dr. Nicole was made aware of pt's Pires Catheter and said it is ok to keep it.
--- NOTE | 2019-03-19 11:44 | Pulmonology Progress Note ---
Assessment/Plan Problems: (1) Abdominal wall cellulitis (2) ADALBERTO (obstructive sleep apnea) (3) Status post panniculectomy (4) COPD (chronic obstructive pulmonary disease) (5) Seizures (6) Intractable pain (7) Cerebrovascular accident (8) Lumbar spondylosis (9) Morbid obesity Assessment/Plan wound care iv abx respiratory treatment check electrolytes pain management, try to decrease iv dilaudid pt/ot Subjective ROS Limited/Unobtainable: No Constitutional: Reports: no symptoms HEENT: Repors: no symptoms Allergies: Coded Allergies: ASPIRIN (Verified Allergy, Unknown, 07/14/18) KETOROLAC (Verified Allergy, Unknown, 07/14/18) PENICILLINS (Verified Allergy, Unknown, 12/23/18) tolerated Ancef on 08/2018 Objective Last 24 Hour Vital Signs Date Time Temp Pulse Resp B/P (MAP) Pulse Ox O2 Delivery O2 Flow Rate FiO2 03/19/19 09:00 Room Air 03/19/19 08:19 84 119/74 03/19/19 08:00 97.9 84 18 119/74 (89) 03/19/19 04:00 97.3 73 19 129/69 (89) 98 03/19/19 00:00 98.1 85 19 130/76 (94) 97 03/18/19 21:00 Room Air 03/18/19 20:00 96.6 79 20 134/72 (92) 95 03/18/19 16:44 97.8 03/18/19 16:00 97.8 77 20 144/89 (107) 98 03/18/19 12:00 97.7 78 20 139/95 (110) 96 Intake and Output 03/18/19 03/19/19 18:59 06:59 Intake Total 1400 ml Output Total 1200 ml 1000 ml Balance 200 ml -1000 ml Intake Oral 1400 ml Output Urine Total 1200 ml 1000 ml # Bowel Movements 1 General Appearance: WD/WN HEENT: normocephalic, atraumatic Respiratory/Chest: chest wall non-tender, lungs clear Cardiovascular: normal peripheral pulses, normal rate Abdomen: normal bowel sounds, soft, non tender Genitourinary: normal external genitalia Extremities: no clubbing Microbiology Date/Time Source Procedure Growth Status 03/18/19 02:00 Rectum Received Current Medications Medications (Trade) Dose Ordered Sig/Luis Route PRN Reason Start Time Stop Time Status Last Admin Dose Admin Acetaminophen (Tylenol) 650 mg Q4H PRN ORAL Mild Pain/Temp > 100.5 03/18/19 04:30 04/17/19 04:29 Amlodipine Besylate (Norvasc) 5 mg DAILY ORAL 03/18/19 09:00 04/17/19 08:59 03/19/19 08:19 Doxycycline Monohydrate (Doxycycline Monohydrate) 100 mg EVERY 12 HOURS ORAL 03/18/19 21:00 03/25/19 20:59 03/19/19 08:19 Duloxetine HCl (Cymbalta) 30 mg DAILY ORAL 03/18/19 09:00 04/17/19 08:59 03/19/19 08:19 Fentanyl (Duragesic) 1 patch Q48H TDERMAL 03/18/19 12:00 03/25/19 11:59 Furosemide (Lasix) 10 mg EVERY 8 HOURS ORAL 03/18/19 06:00 04/17/19 05:59 03/19/19 05:13 Hydromorphone HCl (Dilaudid) 3 mg Q3H PRN IVP Severe Pain (Pain Scale 7-10) 03/18/19 04:30 03/25/19 04:29 03/19/19 11:26 Levetiracetam (Keppra) 1,000 mg EVERY 8 HOURS ORAL 03/18/19 06:00 04/17/19 05:59 03/19/19 05:12 Levofloxacin (Levaquin) 750 mg DAILY ORAL 03/18/19 18:35 03/25/19 18:34 03/19/19 08:19 Miscellaneous Medication (fentaNYL Destruction) 1 ea Q48H MISC 03/18/19 12:00 04/17/19 11:59 Naloxone HCl (Narcan) 0.1 mg PRN IV Sedation scale 3 or 4 03/18/19 04:30 Ondansetron HCl (Zofran) 4 mg Q6H PRN IVP Nausea & Vomiting 03/18/19 04:30 04/17/19 04:29 Polyethylene Glycol (Miralax) 17 gm DAILY PRN ORAL Constipation 03/18/19 04:30 04/17/19 04:29 Bill Dixon MD Mar 19, 2019 11:44
[2019-03-19 12:00] VITALS: BP 113/86
--- NOTE | 2019-03-19 12:22 | Infectious Diseases Prog Note ---
Assessment/Plan Assessment/Plan Assessment: Surgical site infection; improving -03/05 wound cx : S.aureus, diptheroids -03/04 wound cx MRSA (S tetracycline, bactrim, Vancomycin),K. pna (R amp; otherwise S) 02/01 SP Panniculectomy Afebrile Mild leukocytosis Recent hx of B/l Leg cellulitis and panniculitis 12/2018 - in the setting of chronic venous stasis, s/p Rx Recent seizure episode 11/2018 -had L side weakness and spasticity CVA HTN bipolar disorder w/ psychotic features tobacco abuse anxiety disorder chronic pain CHF seizure disorder COPD morbid obesity Dm2 HTN SNF resident Plan: -Continue PO Doxycycline #10 (abx d #) and Levaquin #10 (abx d #) for SSI -03/17 SP DOxycycline #8, Levaquin #8 -03/10 SP IV Vancomycin #8, Ceftriaxone #5 -/10 SP Cefepime #4 -02/08 SP IV Vancomycin #8 -02/04 SP Aztreonam #4 -/ SP Fluconazole #5 - 01/07/19 SP IV Dapto d# 14 - 01/06/19 S/P Levofloxacin #7 - 12/25/18 sp Bactrim #4 and IV Ancef #3 for cellulitis -f/u cx -Monitor CBC/CMP, temperatures -Sx f/u -wound care per surgical team Thank you for this consultation. Will continue to follow along with you. Discussed with RN Subjective Allergies: Coded Allergies: ASPIRIN (Verified Allergy, Unknown, 07/14/18) KETOROLAC (Verified Allergy, Unknown, 07/14/18) PENICILLINS (Verified Allergy, Unknown, 12/23/18) tolerated Ancef on 08/2018 Subjective afebrile no leukocytosis Objective Vital Signs Last 24 Hour Vital Signs Date Time Temp Pulse Resp B/P (MAP) Pulse Ox O2 Delivery O2 Flow Rate FiO2 03/19/19 12:00 98.1 86 18 113/86 (95) 95 03/19/19 09:00 Room Air 03/19/19 08:19 84 119/74 03/19/19 08:00 97.9 84 18 119/74 (89) 03/19/19 04:00 97.3 73 19 129/69 (89) 98 03/19/19 00:00 98.1 85 19 130/76 (94) 97 03/18/19 21:00 Room Air 03/18/19 20:00 96.6 79 20 134/72 (92) 95 03/18/19 16:44 97.8 03/18/19 16:00 97.8 77 20 144/89 (107) 98 Height (Feet): 6 Height (Inches): 0.00 Weight (Pounds): 485 Objective General appearance: alert, cooperative, no distress, appears stated age Head: Normocephalic, without obvious abnormality, atraumatic Eyes: conjunctivae/corneas clear. PERRL, EOM's intact. Fundi benign Throat: Lips, mucosa, and tongue normal. Teeth and gums normal Neck: supple, symmetrical, trachea midline, no adenopathy, thyroid: not enlarged, symmetric, no tenderness/mass/nodules, no carotid bruit and no JVD Lungs: clear to auscultation bilaterally Heart: regular rate and rhythm, S1, S2 normal, no murmur, click, rub or gallop Abdomen: soft, non-tender. Bowel sounds normal. No masses, no organomegaly; surgical incision with some areas of opening and erythema Extremities: extremities normal, atraumatic, no cyanosis or edema Pulses: 2+ and symmetric Skin: Skin color, texture, turgor normal. No rashes or lesions Neurologic: Grossly normal Microbiology Date/Time Source Procedure Growth Status 03/18/19 02:00 Rectum Received Current Medications Medications (Trade) Dose Ordered Sig/Luis Route PRN Reason Start Time Stop Time Status Last Admin Dose Admin Acetaminophen (Tylenol) 650 mg Q4H PRN ORAL Mild Pain/Temp > 100.5 03/18/19 04:30 04/17/19 04:29 Amlodipine Besylate (Norvasc) 5 mg DAILY ORAL 03/18/19 09:00 04/17/19 08:59 03/19/19 08:19 Doxycycline Monohydrate (Doxycycline Monohydrate) 100 mg EVERY 12 HOURS ORAL 03/18/19 21:00 03/25/19 20:59 03/19/19 08:19 Duloxetine HCl (Cymbalta) 30 mg DAILY ORAL 03/18/19 09:00 04/17/19 08:59 03/19/19 08:19 Fentanyl (Duragesic) 1 patch Q48H TDERMAL 03/18/19 12:00 03/25/19 11:59 Furosemide (Lasix) 10 mg EVERY 8 HOURS ORAL 03/18/19 06:00 04/17/19 05:59 03/19/19 05:13 Hydromorphone HCl (Dilaudid) 2 mg Q3H PRN IVP Severe Pain (Pain Scale 7-10) 03/19/19 14:30 03/25/19 14:29 Levetiracetam (Keppra) 1,000 mg EVERY 8 HOURS ORAL 03/18/19 06:00 04/17/19 05:59 03/19/19 05:12 Levofloxacin (Levaquin) 750 mg DAILY ORAL 03/18/19 18:35 03/25/19 18:34 03/19/19 08:19 Miscellaneous Medication (fentaNYL Destruction) 1 ea Q48H MISC 03/18/19 12:00 04/17/19 11:59 Naloxone HCl (Narcan) 0.1 mg PRN IV Sedation scale 3 or 4 03/18/19 04:30 Ondansetron HCl (Zofran) 4 mg Q6H PRN IVP Nausea & Vomiting 03/18/19 04:30 04/17/19 04:29 Polyethylene Glycol (Miralax) 17 gm DAILY PRN ORAL Constipation 03/18/19 04:30 04/17/19 04:29 Alexa Patterson M.D. Mar 19, 2019 12:22
--- NOTE | 2019-03-19 14:05 | NUR ---
PT EVALUATION NOTE Patient seen for initial evaluation, see complete evaluation for details. Patient presents with generalized weakness and pain which affects patient's ability to perform bed mobility and transfer activities. Patient requires max assist for partial rolling; has not been cleared for sitting at EOB or standing. Patient will benefit from skilled inpatient PT intervention to address strength, improve bed mobility and transfer skills once cleared by surgeon. Recommend discharge to SNF for further rehab once medically cleared by MD. Addendum: 03/19/19 at 1453 by CELESTINO TONY PT Amended: Links added.
--- NOTE | 2019-03-19 15:17 | Consultation ---
History of Present Illness General Date patient seen: Mar 19, 2019 Time patient seen: 15:07 Chief Complaint: Vomiting Reason for Consultation: Post surgical wounds Present Illness HPI Patient known to me from prior admissions and surgery. he underwent panniculectomy on 02/01/19 for panniculitis and was originally healing well,. He developed some drainage from the incision but it remained intact and settled down. He was transferred to a SNF at about 3 weeks post op but returned less than a week later with dehiscense over a few areas of his very long incision. He was treated with iv abx and wound care and showed improvement to the point where he was transferred to a SNF. He remained at the snf again for a very short period of time and states he was febrile and vomiting at the SNF. He also states the SNF is not able to care for him, perform his dressing changes, or do appropriate PT. He also states he is in pain and is not getting the right pain meds. He was transferred back to [facility] yesterday. He has not had fever or emesis here. Of note, when seeing him at [facility] there is always junk food wrappers around his bed and apparently he had gained weight during his last admission at [facility]. Allergies: Coded Allergies: ASPIRIN (Verified Allergy, Unknown, 07/14/18) KETOROLAC (Verified Allergy, Unknown, 07/14/18) PENICILLINS (Verified Allergy, Unknown, 12/23/18) tolerated Ancef on 08/2018 Medication History Scheduled Amlodipine Besylate (Norvasc), 5 MG ORAL DAILY, (Reported) Duloxetine Hcl* (Cymbalta*), 30 MG ORAL DAILY, (Reported) Fentanyl 50MCG Patch* (Duragesic 50MCG*), 1 PATCH TDERMAL EVERY 48 HR, (Reported ) Furosemide* (Lasix*), 10 MG ORAL DAILY, (Reported) Heparin Sod (Porcine) (Heparin Sodium*), 5,000 UNITS SUBQ EVERY 12 HOURS, ( Reported) Levetiracetam (Keppra), 1,000 MG ORAL Q8HR, (Reported) Scheduled PRN Acetaminophen* (Acetaminophen 325MG Tablet*), 650 MG ORAL Q4H PRN for Mild Pain (Pain Scale 1-3), (Reported) Hydromorphone Hcl (Hydromorphone Hcl), 4 MG ORAL Q3HR PRN for For Pain, ( Reported) Nitroglycerin (Nitrostat), 0.4 MG SL Q5M X3 DOSES PRN for CHEST PAIN, (Reported) Polyethylene Glycol 3350* (Miralax*), 17 GM ORAL DAILY PRN for Constipation, ( Reported) Discontinued Medications Acetaminophen* (Acetaminophen 325MG Tablet*), 650 MG ORAL Q4H PRN for Mild Pain/ Temp > 100.5, (Reported) Discontinued Reason: Pt stopped taking med Amlodipine Besylate* (Amlodipine Besylate*), 5 MG ORAL DAILY, (Reported) Discontinued Reason: Pt stopped taking med Amlodipine Besylate* (Amlodipine Besylate*), 5 MG ORAL DAILY, (Reported) Discontinued Reason: MD discontinued med Clopidogrel* (Clopidogrel*), 75 MG ORAL DAILY, (Reported) Discontinued Reason: Pt stopped taking med Docusate Sodium* (Docusate Sodium*), 100 MG ORAL DAILY, (Reported) Discontinued Reason: Pt stopped taking med Doxycycline Hyclate* (Vibramycin*), 100 MG ORAL BID, (Reported) Discontinued Reason: Pt stopped taking med Duloxetine Hcl* (Cymbalta*), 60 MG ORAL DAILY, (Reported) Discontinued Reason: Pt stopped taking med Enoxaparin* (Lovenox*), 40 MG SUBQ DAILY, (Reported) Discontinued Reason: MD discontinued med Fentanyl (Fentanyl), 1 PATCH TOPIC EVERY 72 HOURS, (Reported) Discontinued Reason: MD discontinued med Fentanyl 50MCG Patch (Fentanyl 50MCG Patch*), 1 PATCH TOPIC EVERY 48 Hours, ( Reported) Discontinued Reason: Pt stopped taking med Gabapentin* (Gabapentin*), 900 MG ORAL THREE TIMES A DAY, (Reported) Discontinued Reason: Pt stopped taking med Hydrocodone Bit/Acetaminophen 5-325* ([place] 5-325*), 2 TAB ORAL Q6H PRN for For Pain, (Reported) Discontinued Reason: Pt stopped taking med Hydromorphone HCl/Pf (Dilaudid 0.5 mg/0.5 ml Syringe), 0.5 MG IJ EVERY 3 HOURS PRN for For Pain, (Reported) Discontinued Reason: MD discontinued med Hydromorphone HCl/Pf (Dilaudid 4 mg/ml Syringe), 4 MG PO Q4HR PRN for For Pain, (Reported) Discontinued Reason: Pt stopped taking med Lactobacillus Acidophilus (Acidophilus), 1 EACH PO BID, (Reported) Discontinued Reason: Pt stopped taking med Levetiracetam (Levetiracetam), 1,000 MG ORAL TID, (Reported) Discontinued Reason: MD discontinued med Levetiracetam (Keppra), 1,000 MG ORAL Q8HR, (Reported) Discontinued Reason: Pt stopped taking med Levofloxacin* (Levaquin*), 750 MG ORAL DAILY, (Reported) Discontinued Reason: Pt stopped taking med Methadone Hcl* (Methadone*), 10 MG ORAL Q6HR, (Reported) Discontinued Reason: Pt stopped taking med Methocarbamol* (Methocarbamol*), 500 MG ORAL Q8HR PRN for For Pain, (Reported) Discontinued Reason: MD discontinued med Miconazole Nitrate (Miconazole Nitrate), 1 APPLIC TOPIC Q12HR, (Reported) Discontinued Reason: MD discontinued med Nitroglycerin (Nitro-Bid*), 1 INCH TOPIC Q8HR, (Reported) Discontinued Reason: Pt stopped taking med Ondansetron* (Zofran*), 4 MG ORAL Q4HR PRN for Nausea & Vomiting, (Reported) Discontinued Reason: Pt stopped taking med Ondansetron* (Zofran*), 4 MG IV Q6H PRN for Nausea & Vomiting, (Reported) Discontinued Reason: discontinued med Pantoprazole* (Pantoprazole*), 40 MG ORAL BID, (Reported) Discontinued Reason: MD discontinued med Pantoprazole* (Protonix*), 40 MG ORAL ACBREAKFAST, (Reported) Discontinued Reason: Pt stopped taking med Sennosides (Senna), 2 TAB PO HS, (Reported) Discontinued Reason: Pt stopped taking med [Dilaudid], 4 MG PO Q3HR, (Reported) Discontinued Reason: Pt stopped taking med Patient History History Provided By: Patient, Medical Record Healthcare decision maker Resuscitation status Advanced Directive on File Review of Systems Skin: Reports: see HPI Physical Exam General Appearance: no apparent distress Abdomen: soft Skin Exam: other - Right lower quadrant wound with fibrotic and slough at the base. No purulence. No erythema in periskin. LLQ incisional wound with clean granular base. No erythema or warmth on periskin. Remaining 90% of incision line healing well. Last 24 Hour Vital Signs Date Time Temp Pulse Resp B/P (MAP) Pulse Ox O2 Delivery O2 Flow Rate FiO2 8/23/19 12:00 98.1 86 18 113/86 (95) 95 03/19/19 09:00 Room Air 03/19/19 08:19 84 119/74 03/19/19 08:00 97.9 84 18 119/74 (89) 03/19/19 04:00 97.3 73 19 129/69 (89) 98 03/19/19 00:00 98.1 85 19 130/76 (94) 97 03/18/19 21:00 Room Air 03/18/19 20:00 96.6 79 20 134/72 (92) 95 03/18/19 16:44 97.8 03/18/19 16:00 97.8 77 20 144/89 (107) 98 Intake and Output 03/18/19 03/19/19 18:59 06:59 Intake Total 1400 ml Output Total 1200 ml 1000 ml Balance 200 ml -1000 ml Intake Oral 1400 ml Output Urine Total 1200 ml 1000 ml # Bowel Movements 1 Height (Feet): 6 Height (Inches): 0.00 Weight (Pounds): 485 Medications Current Medications Medications (Trade) Dose Ordered Sig/Luis Route PRN Reason Start Time Stop Time Status Last Admin Dose Admin Acetaminophen (Tylenol) 650 mg Q4H PRN ORAL Mild Pain/Temp > 100.5 03/18/19 04:30 04/17/19 04:29 Amlodipine Besylate (Norvasc) 5 mg DAILY ORAL 03/18/19 09:00 04/17/19 08:59 03/19/19 08:19 Doxycycline Monohydrate (Doxycycline Monohydrate) 100 mg EVERY 12 HOURS ORAL 03/18/19 21:00 03/25/19 20:59 03/19/19 08:19 Duloxetine HCl (Cymbalta) 30 mg DAILY ORAL 03/18/19 09:00 04/17/19 08:59 03/19/19 08:19 Fentanyl (Duragesic) 1 patch Q48H TDERMAL 03/18/19 12:00 03/25/19 11:59 Furosemide (Lasix) 10 mg EVERY 8 HOURS ORAL 03/18/19 06:00 04/17/19 05:59 03/19/19 14:30 Hydromorphone HCl (Dilaudid) 2 mg Q3H PRN IVP Severe Pain (Pain Scale 7-10) 03/19/19 14:30 03/25/19 14:29 03/19/19 14:37 Levetiracetam (Keppra) 1,000 mg EVERY 8 HOURS ORAL 03/18/19 06:00 04/17/19 05:59 03/19/19 14:30 Levofloxacin (Levaquin) 750 mg DAILY ORAL 03/18/19 18:35 03/25/19 18:34 03/19/19 08:19 Miscellaneous Medication (fentaNYL Destruction) 1 ea Q48H MISC 03/18/19 12:00 04/17/19 11:59 Naloxone HCl (Narcan) 0.1 mg PRN IV Sedation scale 3 or 4 03/18/19 04:30 Ondansetron HCl (Zofran) 4 mg Q6H PRN IVP Nausea & Vomiting 03/18/19 04:30 04/17/19 04:29 Polyethylene Glycol (Miralax) 17 gm DAILY PRN ORAL Constipation 03/18/19 04:30 04/17/19 04:29 Assessment/Plan Status: stable Assessment/Plan: Difficult situation. Patient is a high risk patient who underwent a necessary but high risk procedure and for the most part did well with the surgery. There are other extenuating circumstances that may be complicating his condition such as reliance on iv pain medication, poor eating habits that are exacerbated by friends who bring him food. Need to sort these issues out otherwise he will constantly be coming in and out of the hospital for non acute matters. The wounds are not significant enough to warrant acute level care and they do not need surgical intervention at this time. Regular wound care will suffice and need to ensure that he will continue to receive this at the snf he gets discharged. Reggie Roberts MD Mar 19, 2019 15:17
[2019-03-19 16:00] VITALS: BP 118/77
--- NOTE | 2019-03-19 16:42 | NUR ---
DISCHARGE PLANNING: NOTE PATIENT HAS BEEN ACCEPTED TO [facility] [address] [place] [address] T: [phone] MD NAVARRO AWARE. AWAITING FURTHER MEDICAL INTERVENTION PER MD.
--- NOTE | 2019-03-19 19:00 | NUR ---
NURSE NOTES: Received pt resting in bed. AAO x 4, on room air. Pt refused abd wound assessment. RN informed pain meds will be given as ordered and dressing will be changed. IV site intact and patent. Bed lowest position, locked, alarm on, side rails up x 2, call light within reach. Will continue to monitor.
--- NOTE | 2019-03-19 19:11 | NUR ---
HAND-OFF: Report given to MICAELA Shaffer.
--- NOTE | 2019-03-19 19:14 | Surgery Progress Note ---
Surgery Progress Note Subjective Additional Comments no acute events Objective Last 24 Hour Vital Signs Date Time Temp Pulse Resp B/P (MAP) Pulse Ox O2 Delivery O2 Flow Rate FiO2 03/19/19 16:00 98.1 89 18 118/77 (91) 96 03/19/19 12:00 98.1 86 18 113/86 (95) 95 03/19/19 09:00 Room Air 03/19/19 08:19 84 119/74 03/19/19 08:00 97.9 84 18 119/74 (89) 03/19/19 04:00 97.3 73 19 129/69 (89) 98 03/19/19 00:00 98.1 85 19 130/76 (94) 97 03/18/19 21:00 Room Air 03/18/19 20:00 96.6 79 20 134/72 (92) 95 I&O Intake and Output 03/18/19 03/19/19 19:00 07:00 Intake Total 1400 ml Output Total 1200 ml 1000 ml Balance 200 ml -1000 ml Intake Oral 1400 ml Output Urine Total 1200 ml 1000 ml # Bowel Movements 1 Dressing: saturated Wound: other Drains: other Cardiovascular: RSR Respiratory: decreased breath sounds Abdomen: soft, other Extremities: edema, no tenderness, no cyanosis Plan Problems: (1) Intractable pain (2) Cellulitis (3) Abdominal wall cellulitis Assessment & Plan: surgical wound with cellulitis and some openings. still with abd wall pannus cellulitis afebrile leukocytosis exam unchanged over course of two days -IV abx -diet as tolerated recommend strict diet but does not adhere to plan packing and dressing to abd wounds TID and prn saturation wash wounds daily with NS thank you will follow with Gt Mata Mar 19, 2019 19:14
[2019-03-19 20:00] VITALS: BP 110/78
--- NOTE | 2019-03-19 21:34 | NUR ---
NURSE NOTES: Wound dressing on the ABD changed as ordered.
[2019-03-20] VITALS: BP 120/74
[2019-03-20 04:00] VITALS: BP 133/79
--- NOTE | 2019-03-20 07:02 | NUR ---
HAND-OFF: Report given to MICAELA Clayton.
--- NOTE | 2019-03-20 07:34 | NUR ---
NURSE NOTES: PT IS AXOX4, CALM, RESTING IN BED. PT MADE AWARE OF BEING ACCEPTED TO [facility]. 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 PT STATES HE WOULD LIKE TO SPEAK TO DR NAVARRO AND WANTS TO CONTINUE TAKING IV DILAUDID AT FACILITY. PT STATES HE DOES NOT WANT IV TAKEN OUT. CALL LIGHT WITHIN REACH. BED IN LOWEST POSITION WITH BEDSIDE RAILS X2 RAISED. WILL CONTINUE TO MONITOR.
[2019-03-20 08:00] VITALS: BP 113/71
--- NOTE | 2019-03-20 09:18 | NUR ---
NURSE NOTES: [facility] said they cannot accommodate the patient due to no edd lift and no bariatric bed however they found a place that can accommodate patient which is [facility] and the contact is Michelle [phone]. Primary RN Forrest made aware
[2019-03-20] MEDS: DULoxetine 30mg cap ORAL SCH (09:25)
[2019-03-20] MEDS: Doxycycline Monohydrate 100mg ORAL SCH ×2 (09:25→21:13)
[2019-03-20] MEDS: Levofloxacin 750mg tab ORAL SCH (09:25)
--- NOTE | 2019-03-20 09:56 | General Progress Note ---
Assessment/Plan Problem List: (1) Intractable pain ICD Codes: R52 - Pain, unspecified SNOMED: 46686750 (2) Cellulitis ICD Codes: L03.90 - Cellulitis, unspecified SNOMED: 694421240 (3) COPD (chronic obstructive pulmonary disease) ICD Codes: J44.9 - Chronic obstructive pulmonary disease, unspecified SNOMED: 31583867 (4) Morbid obesity ICD Codes: E66.01 - Morbid (severe) obesity due to excess calories SNOMED: 598706107 (5) Lumbar spondylosis ICD Codes: M47.816 - Spondylosis without myelopathy or radiculopathy, lumbar region SNOMED: 140934662 (6) Right heart failure ICD Codes: I50.810 - Right heart failure, unspecified SNOMED: 066659696 (7) ADALBERTO (obstructive sleep apnea) ICD Codes: G47.33 - Obstructive sleep apnea (adult) (pediatric) SNOMED: 28252774 (8) Abdominal pannus ICD Codes: E65 - Localized adiposity SNOMED: 0506260686336 (9) Seizures ICD Codes: R56.9 - Unspecified convulsions SNOMED: 24864672 (10) Cerebrovascular accident ICD Codes: I63.9 - Cerebral infarction, unspecified SNOMED: 051722870 (11) Peripheral edema ICD Codes: R60.9 - Edema, unspecified SNOMED: 010137807 (12) Abdominal wall cellulitis ICD Codes: L03.311 - Cellulitis of abdominal wall SNOMED: 27205140 (13) UTI (urinary tract infection) ICD Codes: N39.0 - Urinary tract infection, site not specified SNOMED: 08580463 (14) Uncontrolled seizures ICD Codes: R56.9 - Unspecified convulsions SNOMED: 22394229 Status: stable, progressing Assessment/Plan: pt diet wound care pain control cbc bmp am Subjective Constitutional: Reports: weakness Allergies: Coded Allergies: ASPIRIN (Verified Allergy, Unknown, 07/14/18) KETOROLAC (Verified Allergy, Unknown, 07/14/18) PENICILLINS (Verified Allergy, Unknown, 12/23/18) tolerated Ancef on 08/2018 All Systems: reviewed and negative except above Subjective c/o moderate general pain Objective Last 24 Hour Vital Signs Date Time Temp Pulse Resp B/P (MAP) Pulse Ox O2 Delivery O2 Flow Rate FiO2 03/20/19 09:00 82 113/71 03/20/19 08:00 98.2 82 22 113/71 (85) 94 03/20/19 04:00 98.8 85 24 133/79 (97) 96 03/20/19 00:00 99.6 98 20 120/74 (89) 96 03/19/19 21:00 Room Air 03/19/19 20:00 98.5 87 20 110/78 (89) 97 03/19/19 16:00 98.1 89 18 118/77 (91) 96 03/19/19 12:00 98.1 86 18 113/86 (95) 95 Intake and Output 03/19/19 03/20/19 19:00 07:00 Intake Total 600 ml Output Total 1600 ml 1500 ml Balance -1000 ml -1500 ml Intake Oral 600 ml Output Urine Total 1600 ml 1500 ml # Voids 2 Height (Feet): 6 Height (Inches): 0.00 Weight (Pounds): 485 General Appearance: lethargic EENT: normal ENT inspection Neck: normal alignment Cardiovascular: normal peripheral pulses, normal rate, regular rhythm Respiratory/Chest: chest wall non-tender, lungs clear, normal breath sounds Abdomen: soft, distended Extremities: normal inspection Edema: 1+ Arm (L), 1+ Arm (R), 1+ Leg (L), 1+ Leg (R), 1+ Pedal (L), 1+ Pedal ( R), 1+ Generalized Edema: trace edema Neurologic: motor weakness Skin: normal pigmentation, warm/dry Ernesto Nicole DO Mar 20, 2019 09:56
--- NOTE | 2019-03-20 10:34 | NUR ---
NURSE NOTES: RN SPOKE TO TIMOTHY FOR [facility]. PER TIMOTHY, THERE ARE NO MALE BEDS OR KANA LIFT AVAILABLE AT THIS TIME. RN GAVE HOSPITAL NUMBER TO TIMOTHY, WHO WILL CONTACT US IF THERE IS BED AVAILABILITY.
[2019-03-20 12:00] VITALS: BP 116/74
--- NOTE | 2019-03-20 12:37 | Surgery Progress Note ---
Surgery Progress Note Subjective Additional Comments unchanged exam stable resting comfortable Objective Last 24 Hour Vital Signs Date Time Temp Pulse Resp B/P (MAP) Pulse Ox O2 Delivery O2 Flow Rate FiO2 03/20/19 12:00 98.1 88 20 116/74 (88) 95 03/20/19 09:00 Room Air 03/20/19 09:00 82 113/71 03/20/19 08:00 98.2 82 22 113/71 (85) 94 03/20/19 04:00 98.8 85 24 133/79 (97) 96 03/20/19 00:00 99.6 98 20 120/74 (89) 96 03/19/19 21:00 Room Air 03/19/19 20:00 98.5 87 20 110/78 (89) 97 03/19/19 16:00 98.1 89 18 118/77 (91) 96 I&O Intake and Output 03/19/19 03/20/19 18:59 06:59 Intake Total 600 ml Output Total 1600 ml 1500 ml Balance -1000 ml -1500 ml Intake Oral 600 ml Output Urine Total 1600 ml 1500 ml # Voids 2 Dressing: saturated Wound: other Drains: other Cardiovascular: RSR Respiratory: clear Abdomen: soft, present bowel sounds, other, non-distended Extremities: edema, no cyanosis Plan Problems: (1) Intractable pain (2) Cellulitis (3) Abdominal wall cellulitis Assessment & Plan: surgical wound with cellulitis and some openings. still with abd wall pannus cellulitis afebrile leukocytosis exam unchanged over course of two days -IV abx -diet as tolerated recommend strict diet but does not adhere to plan packing and dressing to abd wounds TID and prn saturation wash wounds daily with NS thank you will follow with Gt Mata Mar 20, 2019 12:37
[2019-03-20] MEDS: fentaNYL Destruction MISC SCH (12:55)
--- NOTE | 2019-03-20 12:57 | NUR ---
NURSE NOTES: NO PREVIOUS FENTANYL PATCH REMOVED. PT HAD REFUSED PREVIOUS PATCH. NEW PATCH APPLIED TO LEFT UPPER OUTER ARM. PT EDUCATED NOT TO REMOVE OR ALTER THE PATCH DUE TO MEDICATION BEING DELIVERED EVERY HOUR. PT VERBALIZED UNDERSTANDING. WILL CONTINUE TO MONITOR.
[2019-03-20 15:49] VITALS: BP 124/73
--- NOTE | 2019-03-20 16:00 | NUR ---
NURSE NOTES: RECEIVED DISCHARGE ORDER FROM DR NAVARRO, TO CONTINUE HOSPITAL MEDS. D/C IV DILAUDID UPON DISCHARGE AND START DILAUDID 4MG PO PRN Q4H. ABDOMINAL DRESSINGS CHANGED 2X BY RN. PT REFUSED THIRD DRESSING CHANGE, REQUESTED DRESSING CHANGE TO BE DONE LATER IN THE EVENING.
--- NOTE | 2019-03-20 19:17 | NUR ---
HAND-OFF: Report given to Franchesca GALICIA RN.
--- NOTE | 2019-03-20 20:00 | NUR ---
NURSE NOTES: Patient received in bed, asleep, no signs of distress at this time. FC draining via gravity. Call light within reach. Will continue to monitor.
--- NOTE | 2019-03-20 21:58 | NUR ---
NURSE NOTES: Abdominal dressing changed, patient tolerated well.
--- NOTE | 2019-03-20 22:08 | Pulmonology Progress Note ---
Assessment/Plan Problems: (1) Abdominal wall cellulitis (2) ADALBERTO (obstructive sleep apnea) (3) Status post panniculectomy (4) COPD (chronic obstructive pulmonary disease) (5) Seizures (6) Intractable pain (7) Cerebrovascular accident (8) Lumbar spondylosis (9) Morbid obesity Assessment/Plan wound care iv abx respiratory treatment check electrolytes pain management, try to decrease iv dilaudid pt/ot Subjective ROS Limited/Unobtainable: No Constitutional: Reports: no symptoms Allergies: Coded Allergies: ASPIRIN (Verified Allergy, Unknown, 07/14/18) KETOROLAC (Verified Allergy, Unknown, 07/14/18) PENICILLINS (Verified Allergy, Unknown, 12/23/18) tolerated Ancef on 08/2018 Objective Last 24 Hour Vital Signs Date Time Temp Pulse Resp B/P (MAP) Pulse Ox O2 Delivery O2 Flow Rate FiO2 03/20/19 21:44 98.2 03/20/19 21:00 Room Air 03/20/19 15:49 98.2 90 18 124/73 (90) 95 03/20/19 12:00 98.1 88 20 116/74 (88) 95 03/20/19 09:00 Room Air 03/20/19 09:00 82 113/71 03/20/19 08:00 98.2 82 22 113/71 (85) 94 03/20/19 04:00 98.8 85 24 133/79 (97) 96 03/20/19 00:00 99.6 98 20 120/74 (89) 96 Intake and Output 03/19/19 03/20/19 19:00 07:00 Intake Total 600 ml Output Total 1600 ml 1500 ml Balance -1000 ml -1500 ml Intake Oral 600 ml Output Urine Total 1600 ml 1500 ml # Voids 2 Objective General Appearance: WD/WN HEENT: normocephalic, atraumatic Respiratory/Chest: chest wall non-tender, lungs clear Cardiovascular: normal peripheral pulses, normal rate Abdomen: normal bowel sounds, soft, non tender Genitourinary: normal external genitalia Extremities: no clubbing Skin: no rash, no ulcers, clean dressing in lower abdomen Neurologic/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 Complete 03/18/19 02:00 Rectum - Final NO CARBAPENEM-RESISTANT ENTEROBACTERI... Complete 03/18/19 02:00 Rectum VRE Culture - Final NO VANCOMYCIN RESISTANT ENTEROCOCCUS ... Complete Current Medications Medications (Trade) Dose Ordered Sig/Luis Route PRN Reason Start Time Stop Time Status Last Admin Dose Admin Acetaminophen (Tylenol) 650 mg Q4H PRN ORAL Mild Pain/Temp > 100.5 03/18/19 04:30 04/17/19 04:29 Amlodipine Besylate (Norvasc) 5 mg DAILY ORAL 03/18/19 09:00 04/17/19 08:59 03/19/19 08:19 Doxycycline Monohydrate (Doxycycline Monohydrate) 100 mg EVERY 12 HOURS ORAL 03/18/19 21:00 03/23/19 23:59 03/20/19 21:13 Duloxetine HCl (Cymbalta) 30 mg DAILY ORAL 03/18/19 09:00 04/17/19 08:59 03/20/19 09:25 Fentanyl (Duragesic) 1 patch Q48H TDERMAL 03/18/19 12:00 03/25/19 11:59 03/20/19 12:55 Furosemide (Lasix) 10 mg EVERY 8 HOURS ORAL 03/18/19 06:00 04/17/19 05:59 03/20/19 21:14 Hydromorphone HCl (Dilaudid) 2 mg Q3H PRN IVP Severe Pain (Pain Scale 7-10) 03/19/19 14:30 03/25/19 14:29 03/20/19 21:14 Levetiracetam (Keppra) 1,000 mg EVERY 8 HOURS ORAL 03/18/19 06:00 04/17/19 05:59 03/20/19 21:14 Levofloxacin (Levaquin) 750 mg DAILY ORAL 03/18/19 18:35 03/23/19 23:59 03/20/19 09:25 Miscellaneous Medication (fentaNYL Destruction) 1 ea Q48H MISC 03/18/19 12:00 04/17/19 11:59 Naloxone HCl (Narcan) 0.1 mg PRN IV Sedation scale 3 or 4 03/18/19 04:30 Ondansetron HCl (Zofran) 4 mg Q6H PRN IVP Nausea & Vomiting 03/18/19 04:30 04/17/19 04:29 Polyethylene Glycol (Miralax) 17 gm DAILY PRN ORAL Constipation 03/18/19 04:30 04/17/19 04:29 Bill Dixon MD Mar 20, 2019 22:08
[2019-03-21] VITALS: BP 127/73
[2019-03-21 04:22] VITALS: BP 132/79
--- NOTE | 2019-03-21 06:42 | NUR ---
NURSE NOTES: Abdominal wound dressing changed again. Tolerated well.
--- NOTE | 2019-03-21 07:23 | NUR ---
HAND-OFF: Report given to Oriana HINOJOSA.
--- NOTE | 2019-03-21 07:56 | NUR ---
NURSE NOTES: Pt awake, A/O x 4, cooperative. complained of abd/leg pain 11/04. fentanyl patch LUE noted. Dressing on abd , CDI, will change per order. bed in low position, bed alarm on. call light within reach. iso and fall precaution maintained. will continue to monitor. Addendum: 03/21/19 at 1849 by Oriana Lopez RN lindsey in place, draining clear yellow urine. Dressing changed , min drainage. will continue to monitor.
[2019-03-21 08:00] VITALS: BP 112/85
--- NOTE | 2019-03-21 08:36 | General Progress Note ---
Assessment/Plan Problem List: (1) Intractable pain ICD Codes: R52 - Pain, unspecified SNOMED: 82991915 (2) Cellulitis ICD Codes: L03.90 - Cellulitis, unspecified SNOMED: 001908339 (3) COPD (chronic obstructive pulmonary disease) ICD Codes: J44.9 - Chronic obstructive pulmonary disease, unspecified SNOMED: 28168809 (4) Morbid obesity ICD Codes: E66.01 - Morbid (severe) obesity due to excess calories SNOMED: 138749532 (5) Lumbar spondylosis ICD Codes: M47.816 - Spondylosis without myelopathy or radiculopathy, lumbar region SNOMED: 451153071 (6) Right heart failure ICD Codes: I50.810 - Right heart failure, unspecified SNOMED: 900392600 (7) ADALBERTO (obstructive sleep apnea) ICD Codes: G47.33 - Obstructive sleep apnea (adult) (pediatric) SNOMED: 44039483 (8) Abdominal pannus ICD Codes: E65 - Localized adiposity SNOMED: 0396145166054 (9) Seizures ICD Codes: R56.9 - Unspecified convulsions SNOMED: 75863621 (10) Cerebrovascular accident ICD Codes: I63.9 - Cerebral infarction, unspecified SNOMED: 612040397 (11) Peripheral edema ICD Codes: R60.9 - Edema, unspecified SNOMED: 171425499 (12) Abdominal wall cellulitis ICD Codes: L03.311 - Cellulitis of abdominal wall SNOMED: 89438098 (13) UTI (urinary tract infection) ICD Codes: N39.0 - Urinary tract infection, site not specified SNOMED: 36518159 (14) Uncontrolled seizures ICD Codes: R56.9 - Unspecified convulsions SNOMED: 04847016 Status: stable, progressing Assessment/Plan: pt diet wound care pain control cbc bmp am Subjective Constitutional: Reports: weakness Allergies: Coded Allergies: ASPIRIN (Verified Allergy, Unknown, 07/14/18) KETOROLAC (Verified Allergy, Unknown, 07/14/18) PENICILLINS (Verified Allergy, Unknown, 12/23/18) tolerated Ancef on 08/2018 All Systems: reviewed and negative except above Subjective c/o moderate general pain Objective Last 24 Hour Vital Signs Date Time Temp Pulse Resp B/P (MAP) Pulse Ox O2 Delivery O2 Flow Rate FiO2 03/21/19 08:00 97.4 89 18 112/85 (94) 94 03/21/19 06:42 98.7 03/21/19 04:22 98.7 86 16 132/79 (96) 94 03/21/19 00:00 99.2 85 16 127/73 (91) 95 03/20/19 21:00 Room Air 03/20/19 15:49 98.2 90 18 124/73 (90) 95 03/20/19 12:00 98.1 88 20 116/74 (88) 95 03/20/19 09:00 Room Air 03/20/19 09:00 82 113/71 Intake and Output 03/20/19 03/21/19 19:00 07:00 Intake Total 600 ml 800 ml Output Total 1200 ml 2450 ml Balance -600 ml -1650 ml Intake Oral 600 ml 800 ml Output Urine Total 1200 ml 2450 ml Height (Feet): 6 Height (Inches): 0.00 Weight (Pounds): 485 General Appearance: alert EENT: normal ENT inspection Neck: normal alignment Cardiovascular: normal peripheral pulses, normal rate, regular rhythm Respiratory/Chest: chest wall non-tender, lungs clear, normal breath sounds Abdomen: soft, distended Extremities: normal inspection Edema: 1+ Arm (L), 1+ Arm (R), 1+ Leg (L), 1+ Leg (R), 1+ Pedal (L), 1+ Pedal ( R), 1+ Generalized Edema: trace edema Neurologic: responsive, motor weakness Skin: normal pigmentation, warm/dry Ernesto Nicole DO Mar 21, 2019 08:36
[2019-03-21] MEDS: Levofloxacin 750mg tab ORAL SCH (09:01)
[2019-03-21] MEDS: Doxycycline Monohydrate 100mg ORAL SCH ×2 (09:01→20:26)
[2019-03-21] MEDS: DULoxetine 30mg cap ORAL SCH (09:02)
[2019-03-21 11:15] VITALS: BP 133/83
--- NOTE | 2019-03-21 14:10 | Surgery Progress Note ---
Surgery Progress Note Subjective Additional Comments very upset today wants narcotic IV meds only does not want to talk to anyone does not want to be examined. soda at bedside Objective Last 24 Hour Vital Signs Date Time Temp Pulse Resp B/P (MAP) Pulse Ox O2 Delivery O2 Flow Rate FiO2 03/21/19 11:15 98.5 93 18 133/83 (100) 99 03/21/19 09:36 97.4 03/21/19 09:00 Room Air 03/21/19 08:00 97.4 89 18 112/85 (94) 94 03/21/19 04:22 98.7 86 16 132/79 (96) 94 03/21/19 00:00 99.2 85 16 127/73 (91) 95 03/20/19 21:00 Room Air 03/20/19 15:49 98.2 90 18 124/73 (90) 95 I&O Intake and Output 03/20/19 03/21/19 19:00 07:00 Intake Total 600 ml 800 ml Output Total 1200 ml 2450 ml Balance -600 ml -1650 ml Intake Oral 600 ml 800 ml Output Urine Total 1200 ml 2450 ml Dressing: saturated Wound: other Drains: other Cardiovascular: RSR Respiratory: clear Abdomen: soft, non-tender, present bowel sounds Extremities: no cyanosis, other Plan Problems: (1) Intractable pain (2) Cellulitis (3) Abdominal wall cellulitis Assessment & Plan: surgical wound with cellulitis and some openings. still with abd wall pannus cellulitis afebrile leukocytosis exam unchanged over course of two days -IV abx -diet as tolerated recommend strict diet but does not adhere to plan packing and dressing to abd wounds TID and prn saturation wash wounds daily with NS thank you will follow with Gt Mata Mar 21, 2019 14:10
[2019-03-21] MEDS: HYDROmorphone 4mg tab ORAL PRN ×2 (16:14→20:26)
--- NOTE | 2019-03-21 17:58 | Infectious Diseases Prog Note ---
Assessment/Plan Assessment/Plan Assessment: Surgical site infection; improving -03/05 wound cx : S.aureus, diptheroids -03/04 wound cx MRSA (S tetracycline, bactrim, Vancomycin),K. pna (R amp; otherwise S) 02/01 SP Panniculectomy Afebrile Mild leukocytosis Recent hx of B/l Leg cellulitis and panniculitis 12/2018 - in the setting of chronic venous stasis, s/p Rx Recent seizure episode 11/2018 -had L side weakness and spasticity CVA HTN bipolar disorder w/ psychotic features tobacco abuse anxiety disorder chronic pain CHF seizure disorder COPD morbid obesity Dm2 HTN SNF resident Plan: -Continue PO Doxycycline #12 (abx d #) and Levaquin #12 (abx d #) for SSI -03/17 SP DOxycycline #8, Levaquin #8 -03/10 SP IV Vancomycin #8, Ceftriaxone #5 -10 SP Cefepime #4 -02/08 SP IV Vancomycin #8 -02/04 SP Aztreonam #4 -/ SP Fluconazole #5 - 01/07/19 SP IV Dapto d# 14 - 01/06/19 S/P Levofloxacin #7 - 12/25/18 sp Bactrim #4 and IV Ancef #3 for cellulitis -f/u cx -Monitor CBC/CMP, temperatures -Sx f/u -wound care per surgical team Thank you for this consultation. Will continue to follow along with you. Discussed with RN Subjective Allergies: Coded Allergies: ASPIRIN (Verified Allergy, Unknown, 07/14/18) KETOROLAC (Verified Allergy, Unknown, 07/14/18) PENICILLINS (Verified Allergy, Unknown, 12/23/18) tolerated Ancef on 08/2018 Subjective afebrile no leukocytosis Objective Vital Signs Last 24 Hour Vital Signs Date Time Temp Pulse Resp B/P (MAP) Pulse Ox O2 Delivery O2 Flow Rate FiO2 03/21/19 16:44 98.5 03/21/19 11:15 98.5 93 18 133/83 (100) 99 03/21/19 09:36 97.4 03/21/19 09:00 Room Air 03/21/19 08:00 97.4 89 18 112/85 (94) 94 03/21/19 04:22 98.7 86 16 132/79 (96) 94 03/21/19 00:00 99.2 85 16 127/73 (91) 95 03/20/19 21:00 Room Air Height (Feet): 6 Height (Inches): 0.00 Weight (Pounds): 485 Objective General appearance: alert, cooperative, no distress, appears stated age Head: Normocephalic, without obvious abnormality, atraumatic Eyes: conjunctivae/corneas clear. PERRL, EOM's intact. Fundi benign Throat: Lips, mucosa, and tongue normal. Teeth and gums normal Neck: supple, symmetrical, trachea midline, no adenopathy, thyroid: not enlarged, symmetric, no tenderness/mass/nodules, no carotid bruit and no JVD Lungs: clear to auscultation bilaterally Heart: regular rate and rhythm, S1, S2 normal, no murmur, click, rub or gallop Abdomen: soft, non-tender. Bowel sounds normal. No masses, no organomegaly; surgical incision with some areas of opening and erythema Extremities: extremities normal, atraumatic, no cyanosis or edema Pulses: 2+ and symmetric Skin: Skin color, texture, turgor normal. No rashes or lesions Neurologic: Grossly normal Current Medications Medications (Trade) Dose Ordered Sig/Luis Route PRN Reason Start Time Stop Time Status Last Admin Dose Admin Acetaminophen (Tylenol) 650 mg Q4H PRN ORAL Mild Pain/Temp > 100.5 03/18/19 04:30 04/17/19 04:29 Amlodipine Besylate (Norvasc) 5 mg DAILY ORAL 03/18/19 09:00 04/17/19 08:59 03/19/19 08:19 Doxycycline Monohydrate (Doxycycline Monohydrate) 100 mg EVERY 12 HOURS ORAL 03/18/19 21:00 03/23/19 23:59 03/21/19 09:01 Duloxetine HCl (Cymbalta) 30 mg DAILY ORAL 03/18/19 09:00 04/17/19 08:59 03/21/19 09:02 Fentanyl (Duragesic) 1 patch Q48H TDERMAL 03/18/19 12:00 03/25/19 11:59 03/20/19 12:55 Furosemide (Lasix) 10 mg EVERY 8 HOURS ORAL 03/18/19 06:00 04/17/19 05:59 03/21/19 06:12 Hydromorphone HCl (Dilaudid) 4 mg Q4H PRN ORAL Breakthrough pain 4-10 03/21/19 12:30 03/28/19 12:29 03/21/19 16:14 Levetiracetam (Keppra) 1,000 mg EVERY 8 HOURS ORAL 03/18/19 06:00 04/17/19 05:59 03/21/19 06:12 Levofloxacin (Levaquin) 750 mg DAILY ORAL 03/18/19 18:35 03/23/19 23:59 03/21/19 09:01 Miscellaneous Medication (fentaNYL Destruction) 1 ea Q48H MISC 03/18/19 12:00 04/17/19 11:59 Naloxone HCl (Narcan) 0.1 mg PRN IV Sedation scale 3 or 4 03/18/19 04:30 Ondansetron HCl (Zofran) 4 mg Q6H PRN IVP Nausea & Vomiting 03/18/19 04:30 04/17/19 04:29 03/21/19 17:02 Polyethylene Glycol (Miralax) 17 gm DAILY PRN ORAL Constipation 03/18/19 04:30 04/17/19 04:29 Alexa Patterson M.D. Mar 21, 2019 17:58
--- NOTE | 2019-03-21 19:10 | NUR ---
HAND-OFF: Report given to Jamilah HINOJOSA.
--- NOTE | 2019-03-21 19:33 | Pulmonology Progress Note ---
Assessment/Plan Problems: (1) Abdominal wall cellulitis (2) ADALBERTO (obstructive sleep apnea) (3) Status post panniculectomy (4) COPD (chronic obstructive pulmonary disease) (5) Seizures (6) Intractable pain (7) Cerebrovascular accident (8) Lumbar spondylosis (9) Morbid obesity Assessment/Plan wound care iv abx respiratory treatment check electrolytes pain management, try to decrease iv dilaudid pt/ot Subjective ROS Limited/Unobtainable: No Constitutional: Reports: no symptoms HEENT: Repors: no symptoms Allergies: Coded Allergies: ASPIRIN (Verified Allergy, Unknown, 07/14/18) KETOROLAC (Verified Allergy, Unknown, 07/14/18) PENICILLINS (Verified Allergy, Unknown, 12/23/18) tolerated Ancef on 08/2018 Objective Last 24 Hour Vital Signs Date Time Temp Pulse Resp B/P (MAP) Pulse Ox O2 Delivery O2 Flow Rate FiO2 03/21/19 16:44 98.5 03/21/19 11:15 98.5 93 18 133/83 (100) 99 03/21/19 09:36 97.4 03/21/19 09:00 Room Air 03/21/19 08:00 97.4 89 18 112/85 (94) 94 03/21/19 04:22 98.7 86 16 132/79 (96) 94 03/21/19 00:00 99.2 85 16 127/73 (91) 95 03/20/19 21:00 Room Air Intake and Output 03/20/19 03/21/19 18:59 06:59 Intake Total 600 ml 800 ml Output Total 1200 ml 2450 ml Balance -600 ml -1650 ml Intake Oral 600 ml 800 ml Output Urine Total 1200 ml 2450 ml Objective General Appearance: WD/WN HEENT: normocephalic, atraumatic Respiratory/Chest: chest wall non-tender, lungs clear Cardiovascular: normal peripheral pulses, normal rate Abdomen: normal bowel sounds, soft, non tender Genitourinary: normal external genitalia Extremities: no clubbing Skin: no rash, no ulcers, clean dressing in lower abdomen 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 Current Medications Medications (Trade) Dose Ordered Sig/Luis Route PRN Reason Start Time Stop Time Status Last Admin Dose Admin Acetaminophen (Tylenol) 650 mg Q4H PRN ORAL Mild Pain/Temp > 100.5 03/18/19 04:30 04/17/19 04:29 Amlodipine Besylate (Norvasc) 5 mg DAILY ORAL 03/18/19 09:00 04/17/19 08:59 03/19/19 08:19 Doxycycline Monohydrate (Doxycycline Monohydrate) 100 mg EVERY 12 HOURS ORAL 03/18/19 21:00 03/23/19 23:59 03/21/19 09:01 Duloxetine HCl (Cymbalta) 30 mg DAILY ORAL 03/18/19 09:00 04/17/19 08:59 03/21/19 09:02 Fentanyl (Duragesic) 1 patch Q48H TDERMAL 03/18/19 12:00 03/25/19 11:59 03/20/19 12:55 Furosemide (Lasix) 10 mg EVERY 8 HOURS ORAL 03/18/19 06:00 04/17/19 05:59 03/21/19 06:12 Hydromorphone HCl (Dilaudid) 4 mg Q4H PRN ORAL Breakthrough pain 4-10 03/21/19 12:30 03/28/19 12:29 03/21/19 16:14 Levetiracetam (Keppra) 1,000 mg EVERY 8 HOURS ORAL 03/18/19 06:00 04/17/19 05:59 03/21/19 06:12 Levofloxacin (Levaquin) 750 mg DAILY ORAL 03/18/19 18:35 03/23/19 23:59 03/21/19 09:01 Miscellaneous Medication (fentaNYL Destruction) 1 ea Q48H MISC 03/18/19 12:00 04/17/19 11:59 Naloxone HCl (Narcan) 0.1 mg PRN IV Sedation scale 3 or 4 03/18/19 04:30 Ondansetron HCl (Zofran) 4 mg Q6H PRN IVP Nausea & Vomiting 03/18/19 04:30 04/17/19 04:29 03/21/19 17:02 Polyethylene Glycol (Miralax) 17 gm DAILY PRN ORAL Constipation 03/18/19 04:30 04/17/19 04:29 Bill Dixon MD Mar 21, 2019 19:33
[2019-03-21 20:00] VITALS: BP 130/68
--- NOTE | 2019-03-21 20:02 | NUR ---
NURSE NOTES: Received patient in bed, awake, alert, oriented, able to make his needs know, F/c in place, draining well, IV site is clean, dry and intact. Call light is within reach, bed is lowered, locked and alarm is on. Will continue to monitor for safety and comfort.
--- NOTE | 2019-03-21 22:04 | NUR ---
NURSE NOTES: Patient refused scheduled dose of Lasix and Keppra even though RN provided verbal education on importance of taking those medications and staying compliant with regimen. CN was made aware.
--- NOTE | 2019-03-22 05:50 | NUR ---
NURSE NOTES: Patient refused am vital signs and scheduled morning medications, Celestine, will indorse this information to am shift nurse.
--- NOTE | 2019-03-22 07:02 | NUR ---
HAND-OFF: Report given to Heike HINOJOSA.
--- NOTE | 2019-03-22 07:55 | NUR ---
NURSE NOTES: Patient received in stable condition, alert and oriented. Pires catheter patent and intact, draining urine. IV site on left AC, saline locked. Bed locked in lowest position. Call light placed within reach. Will continue to monitor.
--- NOTE | 2019-03-22 08:33 | General Progress Note ---
Assessment/Plan Assessment/Plan: (1) Lumbar DDD (2) Lumbar Spondylosis (3) Lumbar Radiculopathy (4) Morbid Obesity (5) Right knee pain (6) Right knee OA h/o ORIF (7) Abdominal pain (8) Panniculus with panniculitis s/p panniculectomy Patient will be continued on Dilaudid and Fentanyl patch D/w Dr. Magaña and he concurred. Subjective Date patient seen: Mar 22, 2019 Time patient seen: 07:30 - am Allergies: Coded Allergies: ASPIRIN (Verified Allergy, Unknown, 07/14/18) KETOROLAC (Verified Allergy, Unknown, 07/14/18) PENICILLINS (Verified Allergy, Unknown, 12/23/18) tolerated Ancef on 08/2018 Subjective REVIEW OF SYSTEMS: Denies rash, fever, chills, sweating, dizziness, drowsiness, blurred vision, sore throat, change in weight. No nausea, vomiting, diarrhea, or blood in the stool or urine. No bowel or bladder incontinence. No dysuria. He is complaining of low back pain and abdominal pain SUBJECTIVE: Patient is in bed no signs of pain or distress. Dilaudid IV was changed to Dilaudid 4mg PO 1 tab Q4H PRN severe pain as per another healthcare practitioner. Objective Last 24 Hour Vital Signs Date Time Temp Pulse Resp B/P (MAP) Pulse Ox O2 Delivery O2 Flow Rate FiO2 03/21/19 21:37 Room Air 03/21/19 20:00 99.6 87 20 130/68 (88) 03/21/19 16:44 98.5 03/21/19 11:15 98.5 93 18 133/83 (100) 99 03/21/19 09:36 97.4 03/21/19 09:00 Room Air Intake and Output 03/21/19 03/22/19 19:00 07:00 Intake Total 480 ml Output Total 1400 ml 750 ml Balance -920 ml -750 ml Intake Oral 480 ml Output Urine Total 1400 ml 750 ml Height (Feet): 6 Height (Inches): 0.00 Weight (Pounds): 485 Objective GENERAL: Alert, awake, and oriented x3. LUNGS: Decreased breath sounds bilaterally. HEART: S1 and S2, regular. ABDOMEN: Obese, bandages noted with tenderness to palpation. EXTREMITIES: No cyanosis. No clubbing. No edema. NEURO: No changes. Eliezer Nicole Mar 22, 2019 08:33
--- NOTE | 2019-03-22 08:45 | General Progress Note ---
Assessment/Plan Problem List: (1) Intractable pain ICD Codes: R52 - Pain, unspecified SNOMED: 58978375 (2) Cellulitis ICD Codes: L03.90 - Cellulitis, unspecified SNOMED: 262339214 (3) COPD (chronic obstructive pulmonary disease) ICD Codes: J44.9 - Chronic obstructive pulmonary disease, unspecified SNOMED: 51110574 (4) Morbid obesity ICD Codes: E66.01 - Morbid (severe) obesity due to excess calories SNOMED: 271127782 (5) Lumbar spondylosis ICD Codes: M47.816 - Spondylosis without myelopathy or radiculopathy, lumbar region SNOMED: 832750781 (6) Right heart failure ICD Codes: I50.810 - Right heart failure, unspecified SNOMED: 349911458 (7) ADALBERTO (obstructive sleep apnea) ICD Codes: G47.33 - Obstructive sleep apnea (adult) (pediatric) SNOMED: 06604465 (8) Abdominal pannus ICD Codes: E65 - Localized adiposity SNOMED: 1969071388356 (9) Seizures ICD Codes: R56.9 - Unspecified convulsions SNOMED: 74813665 (10) Cerebrovascular accident ICD Codes: I63.9 - Cerebral infarction, unspecified SNOMED: 720807021 (11) Peripheral edema ICD Codes: R60.9 - Edema, unspecified SNOMED: 420064495 (12) Abdominal wall cellulitis ICD Codes: L03.311 - Cellulitis of abdominal wall SNOMED: 49490078 (13) UTI (urinary tract infection) ICD Codes: N39.0 - Urinary tract infection, site not specified SNOMED: 90488521 (14) Uncontrolled seizures ICD Codes: R56.9 - Unspecified convulsions SNOMED: 35293297 Status: stable, progressing Assessment/Plan: pt diet wound care pain control cbc bmp am Subjective Constitutional: Reports: weakness Allergies: Coded Allergies: ASPIRIN (Verified Allergy, Unknown, 07/14/18) KETOROLAC (Verified Allergy, Unknown, 07/14/18) PENICILLINS (Verified Allergy, Unknown, 12/23/18) tolerated Ancef on 08/2018 All Systems: reviewed and negative except above Subjective c/o moderate general pain Objective Last 24 Hour Vital Signs Date Time Temp Pulse Resp B/P (MAP) Pulse Ox O2 Delivery O2 Flow Rate FiO2 03/21/19 21:37 Room Air 03/21/19 20:00 99.6 87 20 130/68 (88) 03/21/19 16:44 98.5 03/21/19 11:15 98.5 93 18 133/83 (100) 99 03/21/19 09:36 97.4 03/21/19 09:00 Room Air Intake and Output 03/21/19 03/22/19 19:00 07:00 Intake Total 480 ml Output Total 1400 ml 750 ml Balance -920 ml -750 ml Intake Oral 480 ml Output Urine Total 1400 ml 750 ml Height (Feet): 6 Height (Inches): 0.00 Weight (Pounds): 485 General Appearance: lethargic EENT: normal ENT inspection Neck: normal alignment Cardiovascular: normal peripheral pulses, normal rate, regular rhythm Respiratory/Chest: chest wall non-tender, lungs clear, normal breath sounds Abdomen: soft, distended Extremities: normal inspection Edema: 1+ Arm (L), 1+ Arm (R), 1+ Leg (L), 1+ Leg (R), 1+ Pedal (L), 1+ Pedal ( R), 1+ Generalized Edema: trace edema Neurologic: motor weakness Skin: normal pigmentation, warm/dry Ernesto Nicole DO Mar 22, 2019 08:45
[2019-03-22] MEDS: Levofloxacin 750mg tab ORAL SCH (08:49)
[2019-03-22] MEDS: Doxycycline Monohydrate 100mg ORAL SCH ×2 (08:49→21:41)
[2019-03-22] MEDS: DULoxetine 30mg cap ORAL SCH (08:49)
[2019-03-22] MEDS ORDERED: KEPPRA1000 MG ORAL (10:06)
[2019-03-22] MEDS ORDERED: FUROSEMIDE20 M1 ORAL (10:06)
[2019-03-22] MEDS ORDERED: ZOFRAN ODT8 MG ORAL (10:07)
[2019-03-22] MEDS ORDERED: HYDROMORPHONE HC4 M1 ORAL (10:07)
[2019-03-22] MEDS: fentaNYL Destruction MISC SCH (12:00)
--- NOTE | 2019-03-22 12:02 | Pulmonology Progress Note ---
Assessment/Plan Problems: (1) Abdominal wall cellulitis (2) ADALBERTO (obstructive sleep apnea) (3) Status post panniculectomy (4) COPD (chronic obstructive pulmonary disease) (5) Seizures (6) Intractable pain (7) Cerebrovascular accident (8) Lumbar spondylosis (9) Morbid obesity Assessment/Plan wound care iv abx respiratory treatment check electrolytes pain management, try to decrease iv dilaudid I tried to switch the IV dilaudid to po, but pt has gone on strike and refusing all care and meds. He also told me that my services are not needed any more. I won't see him any more, until he changes his mind. Subjective ROS Limited/Unobtainable: No Constitutional: Reports: no symptoms HEENT: Repors: no symptoms Respiratory: Reports: no symptoms Allergies: Coded Allergies: ASPIRIN (Verified Allergy, Unknown, 07/14/18) KETOROLAC (Verified Allergy, Unknown, 07/14/18) PENICILLINS (Verified Allergy, Unknown, 12/23/18) tolerated Ancef on 08/2018 Objective Last 24 Hour Vital Signs Date Time Temp Pulse Resp B/P (MAP) Pulse Ox O2 Delivery O2 Flow Rate FiO2 03/22/19 09:00 Room Air 03/21/19 21:37 Room Air 03/21/19 20:00 99.6 87 20 130/68 (88) 03/21/19 16:44 98.5 Intake and Output 03/21/19 03/22/19 19:00 07:00 Intake Total 480 ml Output Total 1400 ml 750 ml Balance -920 ml -750 ml Intake Oral 480 ml Output Urine Total 1400 ml 750 ml Objective General Appearance: WD/WN HEENT: normocephalic, atraumatic Respiratory/Chest: chest wall non-tender, lungs clear Cardiovascular: normal peripheral pulses, normal rate Abdomen: normal bowel sounds, soft, non tender Genitourinary: normal external genitalia Extremities: no clubbing Skin: no rash, no ulcers, clean dressing in lower abdomen Neurologic/Psychiatric: ad operations associate II-XII grossly normal Current Medications Medications (Trade) Dose Ordered Sig/Luis Route PRN Reason Start Time Stop Time Status Last Admin Dose Admin Acetaminophen (Tylenol) 650 mg Q4H PRN ORAL Mild Pain/Temp > 100.5 03/18/19 04:30 04/17/19 04:29 Amlodipine Besylate (Norvasc) 5 mg DAILY ORAL 03/18/19 09:00 04/17/19 08:59 03/19/19 08:19 Doxycycline Monohydrate (Doxycycline Monohydrate) 100 mg EVERY 12 HOURS ORAL 03/18/19 21:00 03/23/19 23:59 03/21/19 20:26 Duloxetine HCl (Cymbalta) 30 mg DAILY ORAL 03/18/19 09:00 04/17/19 08:59 03/21/19 09:02 Fentanyl (Duragesic) 1 patch Q48H TDERMAL 03/18/19 12:00 03/25/19 11:59 03/20/19 12:55 Furosemide (Lasix) 10 mg EVERY 8 HOURS ORAL 03/18/19 06:00 04/17/19 05:59 03/21/19 06:12 Hydromorphone HCl (Dilaudid) 4 mg Q4H PRN ORAL Breakthrough pain 4-10 03/21/19 12:30 03/28/19 12:29 03/21/19 20:26 Levetiracetam (Keppra) 1,000 mg EVERY 8 HOURS ORAL 03/18/19 06:00 04/17/19 05:59 03/21/19 06:12 Levofloxacin (Levaquin) 750 mg DAILY ORAL 03/18/19 18:35 03/23/19 23:59 03/21/19 09:01 Miscellaneous Medication (fentaNYL Destruction) 1 ea Q48H MISC 03/18/19 12:00 04/17/19 11:59 Naloxone HCl (Narcan) 0.1 mg PRN IV Sedation scale 3 or 4 03/18/19 04:30 Ondansetron HCl (Zofran) 4 mg Q6H PRN IVP Nausea & Vomiting 03/18/19 04:30 04/17/19 04:29 03/21/19 17:02 Polyethylene Glycol (Miralax) 17 gm DAILY PRN ORAL Constipation 03/18/19 04:30 04/17/19 04:29 Bill Dixon MD Mar 22, 2019 12:02
--- NOTE | 2019-03-22 13:09 | NUR ---
NURSE NOTES: Per previous documentation, fentanyl patch was applied. RN informed the patient that previous patch must be removed for new patch to be placed. Patient refused old patch to be removed and new patch to be placed. RN informed patient of proper use of patch and risks of keeping patch on. The patient confirmed that he refuses. 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
--- NOTE | 2019-03-22 13:54 | NUR ---
CASE MANAGEMENT: REVIEW 03/22/2019 SI:INTRACTABLE PAIN. PT REFUSED VS PT REFUSED LABS IS: LASIX PO Q8H KEPPRA PO Q8H DOXYCYCLINE PO Q12H CYMBALTA PO Q12H NORVASC PO QD LEVAQUIN PO QD MED/SURG STATUS DCP: PATIENT TO BE DISCHARGED TO SNF ONCE MEDICALLY CLEARED.
--- NOTE | 2019-03-22 14:39 | NUR ---
PT NOTE Heike HINOJOSA advised to defer PT today as patient is refusing care. Will follow up tomorrow.
--- NOTE | 2019-03-22 15:31 | Surgery Progress Note ---
Surgery Progress Note Subjective Additional Comments Patient seen and examined at bedside today. Patient is still very upset and states that he wants his IV Dilaudid and is not happy that he is being transitioned to oral medications. Patient still has multiple cans of soda and snacks at bedside. If any attempt is made to reduce his caloric intake patient gets very upset disruptive and potentially combative. And evaluated patient today he allowed me to change his dressings but per report does not always allow for dressing changes. He complains of significant pain and says he needs IV pain medications are he will not allow wound and dressing changes. Patient does not help or assist in caring for himself. He states he wants to get better but he believes he cannot unless he receives more pain medication. Objective Last 24 Hour Vital Signs Date Time Temp Pulse Resp B/P (MAP) Pulse Ox O2 Delivery O2 Flow Rate FiO2 03/22/19 09:00 Room Air 03/21/19 21:37 Room Air 03/21/19 20:00 99.6 87 20 130/68 (88) 03/21/19 16:44 98.5 I&O Intake and Output 03/21/19 03/22/19 19:00 07:00 Intake Total 480 ml Output Total 1400 ml 750 ml Balance -920 ml -750 ml Intake Oral 480 ml Output Urine Total 1400 ml 750 ml Dressing: saturated Wound: other Drains: other Cardiovascular: RSR Respiratory: clear Abdomen: soft, distended, non-tender, other Extremities: edema, no cyanosis Plan Problems: (1) Intractable pain (2) Cellulitis (3) Abdominal wall cellulitis Assessment & Plan: surgical wound with cellulitis and some openings. still with abd wall pannus cellulitis afebrile leukocytosis Patient is becoming more difficult with pain management as he is insistent on IV medications specifically Dilaudid only. He does not want to be transition to oral medications at this time. He uses this is an excuse to not allow for wound care and does not assist with caring for his wounds. In evaluating his wounds at bedside they have a foul odor and some areas are open while others are intact. Patient states that he is willing for therapy but when therapists come to help patient he refuses to participate in physical therapy. Unfortunately becoming a very difficult case as patient states he is motivated to improve and recover but this is only what he tells me and is not how he acts when the teams come to help and assist him with recovery. Furthermore his pain management becoming difficult as he states that he wants an increase in IV pain medications and he only wants them IV and specifically Dilaudid. Will discuss with medical teams to ensure best possible care -IV abx -diet as tolerated recommend strict diet but does not adhere to plan packing and dressing to abd wounds TID and prn saturation wash wounds daily with NS thank you will follow with Gt Mata Mar 22, 2019 15:31
[2019-03-22] MEDS: HYDROmorphone 4mg tab ORAL PRN ×2 (16:18→21:40)
--- NOTE | 2019-03-22 16:31 | NUR ---
DISCHARGE PLANNING: NOTE CLINICALS FAXED TO [facility]ES[facility] E[facility] [phone] F: [phone]
--- NOTE | 2019-03-22 19:40 | Infectious Diseases Prog Note ---
Assessment/Plan Assessment/Plan Assessment: Surgical site infection; improving -03/05 wound cx : S.aureus, diptheroids -03/04 wound cx MRSA (S tetracycline, bactrim, Vancomycin),K. pna (R amp; otherwise S) 02/01 SP Panniculectomy Afebrile Mild leukocytosis Recent hx of B/l Leg cellulitis and panniculitis 12/2018 - in the setting of chronic venous stasis, s/p Rx Recent seizure episode 11/2018 -had L side weakness and spasticity CVA HTN bipolar disorder w/ psychotic features tobacco abuse anxiety disorder chronic pain CHF seizure disorder COPD morbid obesity Dm2 HTN SNF resident Plan: -Continue PO Doxycycline #13 (abx d #) and Levaquin #13 (abx d #/) for SSI (refused his antibiotics today along with other oral meds) -03/17 SP DOxycycline #8, Levaquin #8 -/14 SP IV Vancomycin #8, Ceftriaxone #5 -/10 SP Cefepime #4 -/15 SP IV Vancomycin #8 -02/04 SP Aztreonam #4 -7/2 SP Fluconazole #5 - 01/07/19 SP IV Dapto d# 14 - 01/06/19 S/P Levofloxacin #7 - 12/25/18 sp Bactrim #4 and IV Ancef #3 for cellulitis -f/u cx -Monitor CBC/CMP, temperatures -Sx f/u -wound care per surgical team -CBC, CMP am Thank you for this consultation. Will continue to follow along with you. Discussed with RN Subjective Allergies: Coded Allergies: ASPIRIN (Verified Allergy, Unknown, 07/14/18) KETOROLAC (Verified Allergy, Unknown, 07/14/18) PENICILLINS (Verified Allergy, Unknown, 12/23/18) tolerated Ancef on 08/2018 Subjective afebrile no leukocytosis patient very upset today, demanding IV Dilaudid refused oral medications and wound dressings; did not received his antibiotics today Objective Vital Signs Last 24 Hour Vital Signs Date Time Temp Pulse Resp B/P (MAP) Pulse Ox O2 Delivery O2 Flow Rate FiO2 03/22/19 09:00 Room Air 03/21/19 21:37 Room Air 03/21/19 20:00 99.6 87 20 130/68 (88) Height (Feet): 6 Height (Inches): 0.00 Weight (Pounds): 485 Objective General appearance: alert, cooperative, no distress, appears stated age Head: Normocephalic, without obvious abnormality, atraumatic Eyes: conjunctivae/corneas clear. PERRL, EOM's intact. Fundi benign Throat: Lips, mucosa, and tongue normal. Teeth and gums normal Neck: supple, symmetrical, trachea midline, no adenopathy, thyroid: not enlarged, symmetric, no tenderness/mass/nodules, no carotid bruit and no JVD Lungs: clear to auscultation bilaterally Heart: regular rate and rhythm, S1, S2 normal, no murmur, click, rub or gallop Abdomen: soft, non-tender. Bowel sounds normal. No masses, no organomegaly; surgical incision with some areas of opening and erythema Extremities: extremities normal, atraumatic, no cyanosis or edema Pulses: 2+ and symmetric Skin: Skin color, texture, turgor normal. No rashes or lesions Neurologic: Grossly normal Current Medications Medications (Trade) Dose Ordered Sig/Luis Route PRN Reason Start Time Stop Time Status Last Admin Dose Admin Acetaminophen (Tylenol) 650 mg Q4H PRN ORAL Mild Pain/Temp > 100.5 03/18/19 04:30 04/17/19 04:29 Amlodipine Besylate (Norvasc) 5 mg DAILY ORAL 03/18/19 09:00 04/17/19 08:59 03/19/19 08:19 Doxycycline Monohydrate (Doxycycline Monohydrate) 100 mg EVERY 12 HOURS ORAL 03/18/19 21:00 03/23/19 23:59 03/21/19 20:26 Duloxetine HCl (Cymbalta) 30 mg DAILY ORAL 03/18/19 09:00 04/17/19 08:59 03/21/19 09:02 Fentanyl (Duragesic) 1 patch Q48H TDERMAL 03/18/19 12:00 03/25/19 11:59 03/20/19 12:55 Furosemide (Lasix) 10 mg EVERY 8 HOURS ORAL 03/18/19 06:00 04/17/19 05:59 03/21/19 06:12 Hydromorphone HCl (Dilaudid) 4 mg Q4H PRN ORAL Breakthrough pain 4-10 03/21/19 12:30 03/28/19 12:29 03/22/19 16:18 Levetiracetam (Keppra) 1,000 mg EVERY 8 HOURS ORAL 03/18/19 06:00 04/17/19 05:59 03/21/19 06:12 Levofloxacin (Levaquin) 750 mg DAILY ORAL 03/18/19 18:35 03/23/19 23:59 03/21/19 09:01 Miscellaneous Medication (fentaNYL Destruction) 1 ea Q48H MISC 03/18/19 12:00 04/17/19 11:59 Naloxone HCl (Narcan) 0.1 mg PRN IV Sedation scale 3 or 4 03/18/19 04:30 Ondansetron HCl (Zofran) 4 mg Q6H PRN IVP Nausea & Vomiting 03/18/19 04:30 04/17/19 04:29 03/22/19 16:18 Polyethylene Glycol (Miralax) 17 gm DAILY PRN ORAL Constipation 03/18/19 04:30 04/17/19 04:29 Alexa Patterson M.D. Mar 22, 2019 19:40
[2019-03-22 20:00] VITALS: BP 127/94
--- NOTE | 2019-03-22 20:00 | NUR ---
HAND-OFF: Report given to Malgorzata HINOJOSA.
--- NOTE | 2019-03-22 20:01 | NUR ---
NURSE NOTES: Received report from MICAELA Burroughs. Rounds done. Patient in bed, alert, talkative, bed in low position, locked, call light within reach. Will continue to monitor.
--- NOTE | 2019-03-22 21:27 | NUR ---
NURSE NOTES: Patient upset d/t pain med not given on time. Requests another nurse, charge nurse informed. Attempted to give meds, patient refused at this time.
--- NOTE | 2019-03-22 21:32 | NUR ---
HAND-OFF: Report given to MICAELA Lofton.
[2019-03-23] VITALS: BP_SYST 131; BP_SYST 135; BP_DIAS 82; BP_DIAS 89
[2019-03-23] MEDS: HYDROmorphone 4mg tab ORAL PRN ×6 (02:15→23:37)
--- NOTE | 2019-03-23 07:39 | NUR ---
NURSE NOTES: Received pt in bed, sleeping. No s/s of distress. IV on L AC 20g intact and patent. Bed in the lowest, locked, and alarm on. Call light within reach. Will continue to monitor
--- NOTE | 2019-03-23 07:45 | NUR ---
HAND-OFF: Report given to MICAELA JOHN.
[2019-03-23] MEDS: DULoxetine 30mg cap ORAL SCH (09:00)
[2019-03-23] MEDS: Doxycycline Monohydrate 100mg ORAL SCH ×2 (09:00→21:16)
[2019-03-23] MEDS: Levofloxacin 750mg tab ORAL SCH (09:00)
--- NOTE | 2019-03-23 09:04 | General Progress Note ---
Assessment/Plan Assessment/Plan: (1) Lumbar DDD (2) Lumbar Spondylosis (3) Lumbar Radiculopathy (4) Morbid Obesity (5) Right knee pain (6) Right knee OA h/o ORIF (7) Abdominal pain (8) Panniculus with panniculitis s/p panniculectomy Patient will be continued on Dilaudid and Fentanyl patch D/w Dr. Magaña and he concurred. Subjective Date patient seen: Mar 23, 2019 Time patient seen: 08:00 - am Allergies: Coded Allergies: ASPIRIN (Verified Allergy, Unknown, 07/14/18) KETOROLAC (Verified Allergy, Unknown, 07/14/18) PENICILLINS (Verified Allergy, Unknown, 12/23/18) tolerated Ancef on 08/2018 Subjective REVIEW OF SYSTEMS: Denies rash, fever, chills, sweating, dizziness, drowsiness, blurred vision, sore throat, change in weight. No nausea, vomiting, diarrhea, or blood in the stool or urine. No bowel or bladder incontinence. No dysuria. He is complaining of low back pain and abdominal pain SUBJECTIVE: Patient is in bed resting no signs of pain or distress. Has been refusing all medication except for Dilaudid tabs. D/w nurse that patient in no signs of pain resting in bed. Objective Last 24 Hour Vital Signs Date Time Temp Pulse Resp B/P (MAP) Pulse Ox O2 Delivery O2 Flow Rate FiO2 03/23/19 00:00 98.7 77 18 131/82 (98) 95 03/22/19 21:00 Room Air 03/22/19 20:00 98.3 79 18 127/94 (105) Intake and Output 03/22/19 03/23/19 19:00 07:00 Intake Total 240 ml Output Total 1700 ml 1700 ml Balance -1460 ml -1700 ml Intake Oral 240 ml Output Urine Total 1700 ml 1700 ml Height (Feet): 6 Height (Inches): 0.00 Weight (Pounds): 485 Objective GENERAL: Alert, awake, and oriented x3. LUNGS: Decreased breath sounds bilaterally. HEART: S1 and S2, regular. ABDOMEN: Obese, bandages noted with tenderness to palpation. EXTREMITIES: No cyanosis. No clubbing. No edema. NEURO: No changes. Eliezer Nicole Mar 23, 2019 09:04
--- NOTE | 2019-03-23 13:34 | Surgery Progress Note ---
Surgery Progress Note Subjective Additional Comments Patient seen and examined bedside. Patient today states that he had a hold of his medical record he is very upset that we have stated that narcotics are delaying his healing process. I have explained patient in detail that this is actually very true and that his dependence on narcotics and potential addiction is what is withholding him from a true and good recovery. During a long conversation in discussing his narcotic use history and where he is today as compared to where he was prior and his motivations and how they have changed patient is admitted that he does have a narcotic dependency and he believes he may have had one for some time. I explained patient that we will not be able to harm him and that our goals are to improve him and weaning his narcotic use is the first step in doing this. Overall patient's wounds are difficult but they are improving. His narcotic you should be decreasing unless he is forming a worsening addiction which we cannot conceivably help with. Patient seemed upset but understanding at the end the conversation. Objective Last 24 Hour Vital Signs Date Time Temp Pulse Resp B/P (MAP) Pulse Ox O2 Delivery O2 Flow Rate FiO2 03/23/19 09:00 Room Air 03/23/19 09:00 77 131/82 03/23/19 00:00 98.7 77 18 131/82 (98) 95 03/22/19 21:00 Room Air 03/22/19 20:00 98.3 79 18 127/94 (105) I&O Intake and Output 03/22/19 03/23/19 19:00 07:00 Intake Total 240 ml Output Total 1700 ml 1700 ml Balance -1460 ml -1700 ml Intake Oral 240 ml Output Urine Total 1700 ml 1700 ml Dressing: saturated Wound: other Drains: other Cardiovascular: RSR Respiratory: clear Abdomen: soft, present bowel sounds, non-distended Extremities: edema, no tenderness, no cyanosis Plan Problems: (1) Intractable pain (2) Cellulitis (3) Abdominal wall cellulitis Assessment & Plan: surgical wound with cellulitis and some openings. still with abd wall pannus cellulitis afebrile leukocytosis Patient is becoming more difficult with pain management as he is insistent on IV medications specifically Dilaudid only. He does not want to be transition to oral medications at this time. He uses this is an excuse to not allow for wound care and does not assist with caring for his wounds. In evaluating his wounds at bedside they have a foul odor and some areas are open while others are intact. Patient states that he is willing for therapy but when therapists come to help patient he refuses to participate in physical therapy. Unfortunately becoming a very difficult case as patient states he is motivated to improve and recover but this is only what he tells me and is not how he acts when the teams come to help and assist him with recovery. Furthermore his pain management becoming difficult as he states that he wants an increase in IV pain medications and he only wants them IV and specifically Dilaudid. Will discuss with medical teams to ensure best possible care tates that he had a hold of his medical record he is very upset that we have stated that narcotics are delaying his healing process. I have explained patient in detail that this is actually very true and that his dependence on narcotics and potential addiction is what is withholding him from a true and good recovery. During a long conversation in discussing his narcotic use history and where he is today as compared to where he was prior and his motivations and how they have changed patient is admitted that he does have a narcotic dependency and he believes he may have had one for some time. I explained patient that we will not be able to harm him and that our goals are to improve him and weaning his narcotic use is the first step in doing this. Overall patient's wounds are difficult but they are improving. His narcotic you should be decreasing unless he is forming a worsening addiction which we cannot conceivably help with. Patient seemed upset but understanding at the end the conversation. -IV abx -diet as tolerated recommend strict diet but does not adhere to plan packing and dressing to abd wounds TID and prn saturation wash wounds daily with Dakins thank you will follow with Gt Mata Mar 23, 2019 13:34
--- NOTE | 2019-03-23 13:44 | Infectious Diseases Prog Note ---
Assessment/Plan Assessment/Plan Assessment: Surgical site infection; improving -03/05 wound cx : S.aureus, diptheroids -03/04 wound cx MRSA (S tetracycline, bactrim, Vancomycin),K. pna (R amp; otherwise S) 02/01 SP Panniculectomy Afebrile Mild leukocytosis Recent hx of B/l Leg cellulitis and panniculitis 12/2018 - in the setting of chronic venous stasis, s/p Rx Recent seizure episode 11/2018 -had L side weakness and spasticity CVA HTN bipolar disorder w/ psychotic features tobacco abuse anxiety disorder chronic pain CHF seizure disorder COPD morbid obesity Dm2 HTN SNF resident Plan: -Continue PO Doxycycline #13 (abx d #-) and Levaquin #11 (abx d # ) for SSI (refused his antibiotics today and yesterday along with other oral meds) -03/17 SP DOxycycline #8, Levaquin #8 -03/10 SP IV Vancomycin #8, Ceftriaxone # -03/06 SP Cefepime # -02/08 SP IV Vancomycin #8 -02/04 SP Aztreonam #4 -7/ SP Fluconazole #5 - 01/07/19 SP IV Dapto d# 14 - 01/06/19 S/P Levofloxacin #7 - 12/25/18 sp Bactrim #4 and IV Ancef #3 for cellulitis -f/u cx -Monitor CBC/CMP, temperatures -Sx f/u -wound care per surgical team -Patient very difficult to manage; refusing wound care dressings, examination, blood draws and oral antibiotics. Becoming angry and demanding IV pain medications. Thank you for this consultation. Will continue to follow along with you. Discussed with RN Subjective Allergies: Coded Allergies: ASPIRIN (Verified Allergy, Unknown, 07/14/18) KETOROLAC (Verified Allergy, Unknown, 07/14/18) PENICILLINS (Verified Allergy, Unknown, 12/23/18) tolerated Ancef on 08/2018 Subjective afebrile no leukocytosis patient very upset today, demanding IV Dilaudid refused oral medications and wound dressings; did not received his antibiotics today Objective Vital Signs Last 24 Hour Vital Signs Date Time Temp Pulse Resp B/P (MAP) Pulse Ox O2 Delivery O2 Flow Rate FiO2 03/23/19 09:00 Room Air 03/23/19 09:00 77 131/82 03/23/19 00:00 98.7 77 18 131/82 (98) 95 03/22/19 21:00 Room Air 03/22/19 20:00 98.3 79 18 127/94 (105) Height (Feet): 6 Height (Inches): 0.00 Weight (Pounds): 485 Objective General appearance: alert, cooperative, no distress, appears stated age Head: Normocephalic, without obvious abnormality, atraumatic Eyes: conjunctivae/corneas clear. PERRL, EOM's intact. Fundi benign Throat: Lips, mucosa, and tongue normal. Teeth and gums normal Neck: supple, symmetrical, trachea midline, no adenopathy, thyroid: not enlarged, symmetric, no tenderness/mass/nodules, no carotid bruit and no JVD Lungs: clear to auscultation bilaterally Heart: regular rate and rhythm, S1, S2 normal, no murmur, click, rub or gallop Abdomen: soft, non-tender. Bowel sounds normal. No masses, no organomegaly; surgical incision with some areas of opening and erythema Extremities: extremities normal, atraumatic, no cyanosis or edema Pulses: 2+ and symmetric Skin: Skin color, texture, turgor normal. No rashes or lesions Neurologic: Grossly normal Current Medications Medications (Trade) Dose Ordered Sig/Luis Route PRN Reason Start Time Stop Time Status Last Admin Dose Admin Acetaminophen (Tylenol) 650 mg Q4H PRN ORAL Mild Pain/Temp > 100.5 03/18/19 04:30 04/17/19 04:29 Amlodipine Besylate (Norvasc) 5 mg DAILY ORAL 03/18/19 09:00 04/17/19 08:59 03/19/19 08:19 Doxycycline Monohydrate (Doxycycline Monohydrate) 100 mg EVERY 12 HOURS ORAL 03/18/19 21:00 03/28/19 20:59 03/22/19 21:41 Duloxetine HCl (Cymbalta) 30 mg DAILY ORAL 03/18/19 09:00 04/17/19 08:59 03/21/19 09:02 Fentanyl (Duragesic) 1 patch Q48H TDERMAL 03/18/19 12:00 03/25/19 11:59 03/20/19 12:55 Furosemide (Lasix) 10 mg EVERY 8 HOURS ORAL 03/18/19 06:00 04/17/19 05:59 03/23/19 06:17 Hydromorphone HCl (Dilaudid) 4 mg Q4H PRN ORAL Breakthrough pain 4-10 03/21/19 12:30 03/28/19 12:29 03/23/19 11:12 Levetiracetam (Keppra) 1,000 mg EVERY 8 HOURS ORAL 03/18/19 06:00 04/17/19 05:59 03/23/19 06:16 Levofloxacin (Levaquin) 750 mg DAILY ORAL 03/18/19 18:35 03/28/19 18:34 03/21/19 09:01 Miscellaneous Medication (fentaNYL Destruction) 1 ea Q48H MISC 03/18/19 12:00 04/17/19 11:59 Naloxone HCl (Narcan) 0.1 mg PRN IV Sedation scale 3 or 4 03/18/19 04:30 Ondansetron HCl (Zofran) 4 mg Q6H PRN IVP Nausea & Vomiting 03/18/19 04:30 04/17/19 04:29 03/22/19 16:18 Polyethylene Glycol (Miralax) 17 gm DAILY PRN ORAL Constipation 03/18/19 04:30 04/17/19 04:29 Sodium Hypochlorite (Dakin's Quarter Strength) 1 applic DAILY TOPIC 03/23/19 15:00 04/22/19 14:59 Alexa Patterson M.D. Mar 23, 2019 13:44
--- NOTE | 2019-03-23 14:29 | NUR ---
RD ASSESSMENT & RECOMMENDATIONS SEE CARE ACTIVITY FOR COMPLETE ASSESSMENT DAILY ESTIMATED NEEDS: Needs based on obesity, pulmonary, wound/ 115kg abw 15-18 kcals/kg 5318-3064 total kcals 1.25-1.5 g protein/kg 143-172 g total protein 15-18ml/kcal mL/kg 0803-7700 total fluid mLs NUTRITION DIAGNOSIS: Decreased sodium, fat, and calorie intake needs R/T cardiac h/o and morbid obesity as evidenced by h/o CHF, CVA, w/ BMI>60, @ 267% of [place] Body Weight and poor compliance w/ dietary advice and education. CURRENT DIET:REGULAR PO DIET RECOMMENDATIONS: CARDIAC + CCHO LOW for calorie control ADDITIONAL RECOMMENDATIONS: * Standing wt as able for accurate CBW (too heavy for bedscale) * Rec diet change as above to help w/ wt loss * Continue to attempt to educate pt on healthy wt loss h/o getting easily upset during education pt refused diet ed on 03/23 * Surgical site wound healing: rec MVI x 1, Vit C 250mg QD + Rory 1pkt BID
--- NOTE | 2019-03-23 14:42 | General Progress Note ---
Assessment/Plan Problem List: (1) Intractable pain ICD Codes: R52 - Pain, unspecified SNOMED: 34971995 (2) Cellulitis ICD Codes: L03.90 - Cellulitis, unspecified SNOMED: 847458964 (3) COPD (chronic obstructive pulmonary disease) ICD Codes: J44.9 - Chronic obstructive pulmonary disease, unspecified SNOMED: 31657104 (4) Morbid obesity ICD Codes: E66.01 - Morbid (severe) obesity due to excess calories SNOMED: 174910892 (5) Lumbar spondylosis ICD Codes: M47.816 - Spondylosis without myelopathy or radiculopathy, lumbar region SNOMED: 919879063 (6) Right heart failure ICD Codes: I50.810 - Right heart failure, unspecified SNOMED: 539786331 (7) ADALBERTO (obstructive sleep apnea) ICD Codes: G47.33 - Obstructive sleep apnea (adult) (pediatric) SNOMED: 54186589 (8) Abdominal pannus ICD Codes: E65 - Localized adiposity SNOMED: 3956777567738 (9) Seizures ICD Codes: R56.9 - Unspecified convulsions SNOMED: 47373272 (10) Cerebrovascular accident ICD Codes: I63.9 - Cerebral infarction, unspecified SNOMED: 110188118 (11) Peripheral edema ICD Codes: R60.9 - Edema, unspecified SNOMED: 025461271 (12) Abdominal wall cellulitis ICD Codes: L03.311 - Cellulitis of abdominal wall SNOMED: 45146976 (13) UTI (urinary tract infection) ICD Codes: N39.0 - Urinary tract infection, site not specified SNOMED: 88180811 (14) Uncontrolled seizures ICD Codes: R56.9 - Unspecified convulsions SNOMED: 61436922 Status: stable, progressing Assessment/Plan: pt diet wound care pain control cbc bmp am dc plan snf if clear Subjective Constitutional: Reports: weakness Allergies: Coded Allergies: ASPIRIN (Verified Allergy, Unknown, 07/14/18) KETOROLAC (Verified Allergy, Unknown, 07/14/18) PENICILLINS (Verified Allergy, Unknown, 12/23/18) tolerated Ancef on 08/2018 All Systems: reviewed and negative except above Subjective c/o moderate general pain Objective Last 24 Hour Vital Signs Date Time Temp Pulse Resp B/P (MAP) Pulse Ox O2 Delivery O2 Flow Rate FiO2 03/23/19 09:00 Room Air 03/23/19 09:00 77 131/82 03/23/19 00:00 98.7 77 18 131/82 (98) 95 03/22/19 21:00 Room Air 03/22/19 20:00 98.3 79 18 127/94 (105) Intake and Output 03/22/19 03/23/19 19:00 07:00 Intake Total 240 ml Output Total 1700 ml 1700 ml Balance -1460 ml -1700 ml Intake Oral 240 ml Output Urine Total 1700 ml 1700 ml Height (Feet): 6 Height (Inches): 0.00 Weight (Pounds): 485 General Appearance: lethargic EENT: normal ENT inspection Neck: normal alignment Cardiovascular: normal peripheral pulses, normal rate, regular rhythm Respiratory/Chest: chest wall non-tender, lungs clear, normal breath sounds Abdomen: soft, distended Extremities: normal inspection Edema: 1+ Arm (L), 1+ Arm (R), 1+ Leg (L), 1+ Leg (R), 1+ Pedal (L), 1+ Pedal ( R), 1+ Generalized Neurologic: motor weakness Skin: normal pigmentation, warm/dry Ernesto Nicole DO Mar 23, 2019 14:42
[2019-03-23] MEDS: Dakin's 0.125% Soln (Quarter Strength) 16oz TOPIC SCH (15:31)
[2019-03-23] MEDS: fentaNYL Destruction MISC SCH (16:06)
--- NOTE | 2019-03-23 16:37 | NUR ---
DISCHARGE PLANNING: NOTE MET WITH PATIENT AT THE BEDSIDE. DC PLAN DISCUSSED. ALISON FISHER IS UNWILLING TO ACCEPT LISA MCMA[facility] IS UNWILLING TO ACCEPT JOSE IS UNABLE TO ACCEPT CLINICALS FAXED TO [facility]. AWAITING FAX CONFIRMATION. CM WILL F/U CALL PLACED TO [facility] [phone]. VM LEFT.
--- NOTE | 2019-03-23 19:27 | NUR ---
HAND-OFF: Report given to MICAELA Kohler.
--- NOTE | 2019-03-23 19:28 | NUR ---
NURSE NOTES: Received report from MICAELA Chan. Patient in bed, awake and alert x4. No signs of distress or SOB. Left AC IV intact. Bed locked and in lowest position. Call light in reach. Will continue to monitor.
[2019-03-23 20:00] VITALS: BP 132/77
--- NOTE | 2019-03-23 22:15 | Consultation ---
DATE OF CONSULTATION: 03/23/2019 CONSULTING PHYSICIAN: Laney Mcghee M.D. REQUESTING PHYSICIAN: Ernesto Nicole D.O. CHIEF COMPLAINT: "Who are you? So I have depression, so what?" HISTORY OF PRESENT ILLNESS: This is a male patient who was admitted to the hospital secondary to nausea, vomiting, and he had intractable pain also. So, he had been admitted to the hospital. The patient is very irritable and agitated. I talked to him about his depression. the patient has a mood disorder, specifically major depression and generalized anxiety. I have seen this patient numerous times at [facility] before during previous admissions. He has overlying history of depression and anxiety worsened by the stress of his medical illness, but he is always very guarded and agitated. When I asked him about his day, he seemed very irritable, but he eventually admitted to having anxiety and depression. PAST MEDICAL HISTORY: COPD, cellulitis, status post urinary tract infection, hyponatremia, status post seizure disorder, intractable pain. ALLERGIES: He has allergies to ketorolac, penicillin, as well as aspirin. MEDICATIONS: Psychotropic medications on admission, Cymbalta 30 mg daily. SUBSTANCE ABUSE HISTORY: He denies illicit drug and alcohol use. FAMILY PSYCHIATRIC HISTORY: Denies. PAIN ASSESSMENT: . DEVELOPMENTAL PROBLEMS: Denies. SOCIAL HISTORY: The patient is currently living in . Financially supported by [employer] and Medicare. PSYCHIATRIC HISTORY: History of major depressive disorder. Denies any recent psychiatric admissions. STRENGTHS: He is motivated to get better and he has a place to live. WEAKNESSES: He is impulsive. He has minimal support system. MENTAL STATUS EXAMINATION: This is an 53-year-old male patient. His appearance is disheveled. Attitude, irritable and agitated. Affect, guarded and restricted. Intellect is good and he does know current events and does know the last four presidents. Mood, depressed and anxious. Motor activity, psychomotor agitation. Attention span is poor because he cannot do serial sevens or spell world backwards. Orientation x3, person, place and time, but not to situation. Speech is low volume and slurred. Thought process, linear and goal directed. Thought content, denies auditory or visual hallucinations or delusions. Perception is good and he has no perceptual disturbances. Abstract reasoning is poor because he does not understand proverbs, only has concrete thinking. Insight is poor because he does not recognize the severity of his mood disorder. Judgment is good. He is able to make medical decisions for himself. Denies suicidal or homicidal thoughts. As far as his short-term memory, 3/3 with recall with 5-minute delay with good short-term memory. Long-term memory is intact based on his knowledge for long-term events in his life such as the high school that he went to. DIAGNOSES: 1. Major depressive disorder, mild, recurrent without psychotic features. 2. Medical problems include intractable pain, nausea, vomiting, status post urinary tract infection, seizure disorder, obesity, COPD, cellulitis. 3. Psychosocial stressors, financial. 4. Functional impairment is severe. PLAN: I am going to continue this patient on Cymbalta 30 mg daily to reduce depression and anxiety, and also help with pain prophylaxis. Provided him with 20 minutes of cognitive behavioral therapy to help him identify his automatic negative thoughts and help convert negative thoughts to more positive thoughts to reduce depression, anxiety, mood lability and help him have more adaptive behavioral pattern. Chart has been reviewed. Discussed with staff. The patient is seen and assessed at bedside. Laney Mcghee M.D. DR: Doretha JOB#: [id number] CC:
[2019-03-24] VITALS: BP 134/69
[2019-03-24] MEDS: HYDROmorphone 4mg tab ORAL PRN ×4 (03:44→20:03)
[2019-03-24 04:00] VITALS: BP 146/71
--- NOTE | 2019-03-24 07:30 | NUR ---
NURSE NOTES: Received pt from [facility]. pt is alert and orient x4. No SOB or acute respiratory distress noted. pt has Pires cath in place is running well. pt has intact iv access LAC 20G SL. all needs attended, bed is locked and is in the lowest position. call light within easy reach. will continue to monitor.
--- NOTE | 2019-03-24 07:49 | NUR ---
HAND-OFF: Report given to MICAELA Bar.
[2019-03-24 07:59] VITALS: BP 141/73
[2019-03-24] MEDS: DULoxetine 30mg cap ORAL SCH (08:17)
[2019-03-24] MEDS: Dakin's 0.125% Soln (Quarter Strength) 16oz TOPIC SCH (08:18)
[2019-03-24] MEDS: Levofloxacin 750mg tab ORAL SCH (08:18)
[2019-03-24] MEDS: Doxycycline Monohydrate 100mg ORAL SCH ×2 (08:18→20:02)
--- NOTE | 2019-03-24 08:56 | General Progress Note ---
Assessment/Plan Problem List: (1) Intractable pain ICD Codes: R52 - Pain, unspecified SNOMED: 38581711 (2) Cellulitis ICD Codes: L03.90 - Cellulitis, unspecified SNOMED: 157650428 (3) COPD (chronic obstructive pulmonary disease) ICD Codes: J44.9 - Chronic obstructive pulmonary disease, unspecified SNOMED: 15762944 (4) Morbid obesity ICD Codes: E66.01 - Morbid (severe) obesity due to excess calories SNOMED: 291550722 (5) Lumbar spondylosis ICD Codes: M47.816 - Spondylosis without myelopathy or radiculopathy, lumbar region SNOMED: 997125839 (6) Right heart failure ICD Codes: I50.810 - Right heart failure, unspecified SNOMED: 282050983 (7) ADALBERTO (obstructive sleep apnea) ICD Codes: G47.33 - Obstructive sleep apnea (adult) (pediatric) SNOMED: 30661598 (8) Abdominal pannus ICD Codes: E65 - Localized adiposity SNOMED: 7102650704644 (9) Seizures ICD Codes: R56.9 - Unspecified convulsions SNOMED: 25572569 (10) Cerebrovascular accident ICD Codes: I63.9 - Cerebral infarction, unspecified SNOMED: 708168110 (11) Peripheral edema ICD Codes: R60.9 - Edema, unspecified SNOMED: 927574651 (12) Abdominal wall cellulitis ICD Codes: L03.311 - Cellulitis of abdominal wall SNOMED: 54459655 (13) UTI (urinary tract infection) ICD Codes: N39.0 - Urinary tract infection, site not specified SNOMED: 82957174 (14) Uncontrolled seizures ICD Codes: R56.9 - Unspecified convulsions SNOMED: 28734634 Status: stable, progressing Assessment/Plan: pt diet wound care pain control cbc bmp am dc plan snf if clear Subjective Allergies: Coded Allergies: ASPIRIN (Verified Allergy, Unknown, 07/14/18) KETOROLAC (Verified Allergy, Unknown, 07/14/18) PENICILLINS (Verified Allergy, Unknown, 12/23/18) tolerated Ancef on 08/2018 All Systems: reviewed and negative except above Subjective sleepy calm Objective Last 24 Hour Vital Signs Date Time Temp Pulse Resp B/P (MAP) Pulse Ox O2 Delivery O2 Flow Rate FiO2 03/24/19 08:17 75 141/73 8/28/19 07:59 98.3 75 18 141/73 (95) 97 03/24/19 04:00 98.6 75 18 146/71 (96) 96 03/24/19 00:00 98.3 74 18 134/69 (90) 96 03/23/19 21:00 Room Air 03/23/19 20:00 98.0 78 19 132/77 (95) 96 03/23/19 09:00 Room Air 03/23/19 09:00 77 131/82 Intake and Output 03/23/19 03/24/19 19:00 07:00 Intake Total 480 ml 780 ml Output Total 1200 ml 1100 ml Balance -720 ml -320 ml Intake Oral 480 ml 780 ml Output Urine Total 1200 ml 1100 ml # Voids 1 # Bowel Movements 2 Height (Feet): 6 Height (Inches): 0.00 Weight (Pounds): 444 General Appearance: lethargic EENT: normal ENT inspection Neck: normal alignment Cardiovascular: normal peripheral pulses, normal rate, regular rhythm Respiratory/Chest: chest wall non-tender, lungs clear, normal breath sounds Abdomen: soft, distended Extremities: normal inspection Edema: 1+ Arm (L), 1+ Arm (R), 1+ Leg (L), 1+ Leg (R), 1+ Pedal (L), 1+ Pedal ( R), 1+ Generalized Edema: trace edema Neurologic: motor weakness Skin: normal pigmentation, warm/dry Ernesto Nicole DO Mar 24, 2019 08:56
--- NOTE | 2019-03-24 09:15 | Progress Note ---
DATE: 03/24/2019 SUBJECTIVE: This is a 53-year-old male patient with intractable pain. The patient has increased anxiety and depression worsened by stress of his medical illness. That is why, the attending has requested daily psychiatric consultation. MENTAL STATUS EXAMINATION: This is a 53-year-old male. Appearance is disheveled. Attitude, irritable and agitated. Affect, guarded and restricted. Intellect poor. Mood, depressed and anxious. Motor activity, psychomotor agitation. Attention span is poor. Orientation x2. Speech is low volume, slurred. Thought process, disorganized and illogical. Insight and judgment is poor. DIAGNOSIS: Major depressive disorder, mild, recurrent, without psychotic features. PLAN: My plan for this patient is to treat with Cymbalta 30 mg a day. A 20 minutes of cognitive behavioral therapy to help identify his automatic negative thoughts and help him convert his negative thoughts to more positive thoughts to reduce depression, anxiety, and mood lability. A 20 minutes of cognitive behavioral therapy provided. Chart reviewed. Discussed with staff. Seen and assessed at bedside. Laney Mcghee M.D. DR: GUTIERREZ JOB#: [id number] CC:
--- NOTE | 2019-03-24 09:22 | General Progress Note ---
Assessment/Plan Assessment/Plan: (1) Lumbar DDD (2) Lumbar Spondylosis (3) Lumbar Radiculopathy (4) Morbid Obesity (5) Right knee pain (6) Right knee OA h/o ORIF (7) Abdominal pain (8) Panniculus with panniculitis s/p panniculectomy Patient will be continued on Dilaudid and Fentanyl patch D/w Dr. Magaña and he concurred. Subjective Date patient seen: Mar 24, 2019 Time patient seen: 09:00 - am Allergies: Coded Allergies: ASPIRIN (Verified Allergy, Unknown, 07/14/18) KETOROLAC (Verified Allergy, Unknown, 07/14/18) PENICILLINS (Verified Allergy, Unknown, 12/23/18) tolerated Ancef on 08/2018 Subjective REVIEW OF SYSTEMS: Denies rash, fever, chills, sweating, dizziness, drowsiness, blurred vision, sore throat, change in weight. No nausea, vomiting, diarrhea, or blood in the stool or urine. No bowel or bladder incontinence. No dysuria. He is complaining of low back pain and abdominal pain SUBJECTIVE: Patient is in bed showing no signs of pain has been restarted on the Fentanyl patch and continues to use the Dilaudid as needed. He has no new complaints at this time. Objective Last 24 Hour Vital Signs Date Time Temp Pulse Resp B/P (MAP) Pulse Ox O2 Delivery O2 Flow Rate FiO2 03/24/19 08:17 75 141/73 03/24/19 07:59 98.3 75 18 141/73 (95) 97 03/24/19 04:00 98.6 75 18 146/71 (96) 96 03/24/19 00:00 98.3 74 18 134/69 (90) 96 03/23/19 21:00 Room Air 03/23/19 20:00 98.0 78 19 132/77 (95) 96 Intake and Output 03/23/19 03/24/19 19:00 07:00 Intake Total 480 ml 780 ml Output Total 1200 ml 1100 ml Balance -720 ml -320 ml Intake Oral 480 ml 780 ml Output Urine Total 1200 ml 1100 ml # Voids 1 # Bowel Movements 2 Height (Feet): 6 Height (Inches): 0.00 Weight (Pounds): 444 Objective GENERAL: Alert, awake, and oriented x3. LUNGS: Decreased breath sounds bilaterally. HEART: S1 and S2, regular. ABDOMEN: Obese, bandages noted with tenderness to palpation. EXTREMITIES: No cyanosis. No clubbing. No edema. NEURO: No changes. Eliezer Nicole Mar 24, 2019 09:22
--- NOTE | 2019-03-24 11:06 | NUR ---
DISCHARGE PLANNING: NOTE CLINICALS RE-FAXED TO [facility] JONG CONFIRMED THAT SHE RECEIVED CLINICALS. SHE IS REVIEWING CLINICALS FOR ACCEPTANCE. Addendum: 03/24/19 at 1124 by Emi Villatoro CM [place] IS UNABLE TO ACCEPT
--- NOTE | 2019-03-24 13:55 | Infectious Diseases Prog Note ---
Assessment/Plan Assessment/Plan Assessment: Surgical site infection; improving -03/05 wound cx : S.aureus, diptheroids -03/04 wound cx MRSA (S tetracycline, bactrim, Vancomycin),K. pna (R amp; otherwise S) 02/01 SP Panniculectomy Afebrile Mild leukocytosis Recent hx of B/l Leg cellulitis and panniculitis 12/2018 - in the setting of chronic venous stasis, s/p Rx Recent seizure episode 11/2018 -had L side weakness and spasticity CVA HTN bipolar disorder w/ psychotic features tobacco abuse anxiety disorder chronic pain CHF seizure disorder COPD morbid obesity Dm2 HTN SNF resident Plan: -Continue PO Doxycycline #13 (abx d #) and Levaquin #11 (abx d #) for SSI -03/17 SP DOxycycline #8, Levaquin #8 -03/10 SP IV Vancomycin #8, Ceftriaxone #5 -10 SP Cefepime #4 -02/08 SP IV Vancomycin #8 -02/04 SP Aztreonam #4 -/ SP Fluconazole #5 - 01/07/19 SP IV Dapto d# 14 - 01/06/19 S/P Levofloxacin #7 - 12/25/18 sp Bactrim #4 and IV Ancef #3 for cellulitis -f/u cx -Monitor CBC/CMP, temperatures -Sx f/u -wound care per surgical team -Patient very difficult to manage; refusing wound care dressings, examination, blood draws and oral antibiotics. Becoming angry and demanding IV pain medications. Thank you for this consultation. Will continue to follow along with you. Discussed with RN Subjective Allergies: Coded Allergies: ASPIRIN (Verified Allergy, Unknown, 07/14/18) KETOROLAC (Verified Allergy, Unknown, 07/14/18) PENICILLINS (Verified Allergy, Unknown, 12/23/18) tolerated Ancef on 08/2018 Subjective afebrile no recent lab Objective Vital Signs Last 24 Hour Vital Signs Date Time Temp Pulse Resp B/P (MAP) Pulse Ox O2 Delivery O2 Flow Rate FiO2 03/24/19 09:00 Room Air 03/24/19 08:48 98.3 03/24/19 08:17 75 141/73 03/24/19 07:59 98.3 75 18 141/73 (95) 97 03/24/19 04:00 98.6 75 18 146/71 (96) 96 03/24/19 00:00 98.3 74 18 134/69 (90) 96 03/23/19 21:00 Room Air 03/23/19 20:00 98.0 78 19 132/77 (95) 96 Height (Feet): 6 Height (Inches): 0.00 Weight (Pounds): 444 Objective General appearance: alert, cooperative, no distress, appears stated age Head: Normocephalic, without obvious abnormality, atraumatic Eyes: conjunctivae/corneas clear. PERRL, EOM's intact. Fundi benign Throat: Lips, mucosa, and tongue normal. Teeth and gums normal Neck: supple, symmetrical, trachea midline, no adenopathy, thyroid: not enlarged, symmetric, no tenderness/mass/nodules, no carotid bruit and no JVD Lungs: clear to auscultation bilaterally Heart: regular rate and rhythm, S1, S2 normal, no murmur, click, rub or gallop Abdomen: soft, non-tender. Bowel sounds normal. No masses, no organomegaly; surgical incision with some areas of opening and erythema Extremities: extremities normal, atraumatic, no cyanosis or edema Pulses: 2+ and symmetric Skin: Skin color, texture, turgor normal. No rashes or lesions Neurologic: Grossly normal Current Medications Medications (Trade) Dose Ordered Sig/Luis Route PRN Reason Start Time Stop Time Status Last Admin Dose Admin Acetaminophen (Tylenol) 650 mg Q4H PRN ORAL Mild Pain/Temp > 100.5 03/18/19 04:30 04/17/19 04:29 Amlodipine Besylate (Norvasc) 5 mg DAILY ORAL 03/18/19 09:00 04/17/19 08:59 03/24/19 08:17 Doxycycline Monohydrate (Doxycycline Monohydrate) 100 mg EVERY 12 HOURS ORAL 03/18/19 21:00 03/28/19 20:59 03/24/19 08:18 Duloxetine HCl (Cymbalta) 30 mg DAILY ORAL 03/18/19 09:00 04/17/19 08:59 03/24/19 08:17 Fentanyl (Duragesic) 1 patch Q48H TDERMAL 03/23/19 16:00 03/30/19 15:59 03/23/19 16:01 Furosemide (Lasix) 10 mg EVERY 8 HOURS ORAL 03/18/19 06:00 04/17/19 05:59 03/24/19 13:45 Hydromorphone HCl (Dilaudid) 4 mg Q4H PRN ORAL Breakthrough pain 4-10 03/21/19 12:30 03/28/19 12:29 03/24/19 13:46 Levetiracetam (Keppra) 1,000 mg EVERY 8 HOURS ORAL 03/18/19 06:00 04/17/19 05:59 03/24/19 13:45 Levofloxacin (Levaquin) 750 mg DAILY ORAL 03/18/19 18:35 03/28/19 18:34 03/24/19 08:18 Miscellaneous Medication (fentaNYL Destruction) 1 ea Q48H MISC 03/23/19 16:00 04/22/19 15:59 03/23/19 16:06 Naloxone HCl (Narcan) 0.1 mg PRN IV Sedation scale 3 or 4 03/18/19 04:30 Ondansetron HCl (Zofran) 4 mg Q6H PRN IVP Nausea & Vomiting 03/18/19 04:30 04/17/19 04:29 03/22/19 16:18 Polyethylene Glycol (Miralax) 17 gm DAILY PRN ORAL Constipation 03/18/19 04:30 04/17/19 04:29 Sodium Hypochlorite (Dakin's Quarter Strength) 1 applic DAILY TOPIC 03/23/19 15:00 04/22/19 14:59 03/24/19 08:18 Alexa Patterson M.D. Mar 24, 2019 13:55
--- NOTE | 2019-03-24 14:50 | NUR ---
NURSE NOTES: change dressing done as order and pt tolerate well. will continue to monitor.
--- NOTE | 2019-03-24 15:21 | Surgery Progress Note ---
Surgery Progress Note Subjective Additional Comments seen by psych. meds ordered dressings being done Objective Last 24 Hour Vital Signs Date Time Temp Pulse Resp B/P (MAP) Pulse Ox O2 Delivery O2 Flow Rate FiO2 03/24/19 14:16 98.3 03/24/19 09:00 Room Air 03/24/19 08:17 75 141/73 03/24/19 07:59 98.3 75 18 141/73 (95) 97 03/24/19 04:00 98.6 75 18 146/71 (96) 96 03/24/19 00:00 98.3 74 18 134/69 (90) 96 03/23/19 21:00 Room Air 03/23/19 20:00 98.0 78 19 132/77 (95) 96 I&O Intake and Output 03/23/19 03/24/19 19:00 07:00 Intake Total 480 ml 780 ml Output Total 1200 ml 1100 ml Balance -720 ml -320 ml Intake Oral 480 ml 780 ml Output Urine Total 1200 ml 1100 ml # Voids 1 # Bowel Movements 2 Dressing: saturated Wound: other Drains: other Cardiovascular: RSR Respiratory: clear Abdomen: soft, present bowel sounds, non-distended Extremities: edema, no cyanosis Plan Problems: (1) Intractable pain (2) Cellulitis (3) Abdominal wall cellulitis Assessment & Plan: surgical wound with cellulitis and some openings. still with abd wall pannus cellulitis afebrile leukocytosis Patient is becoming more difficult with pain management as he is insistent on IV medications specifically Dilaudid only. He does not want to be transition to oral medications at this time. He uses this is an excuse to not allow for wound care and does not assist with caring for his wounds. In evaluating his wounds at bedside they have a foul odor and some areas are open while others are intact. Patient states that he is willing for therapy but when therapists come to help patient he refuses to participate in physical therapy. Unfortunately becoming a very difficult case as patient states he is motivated to improve and recover but this is only what he tells me and is not how he acts when the teams come to help and assist him with recovery. Furthermore his pain management becoming difficult as he states that he wants an increase in IV pain medications and he only wants them IV and specifically Dilaudid. Will discuss with medical teams to ensure best possible care tates that he had a hold of his medical record he is very upset that we have stated that narcotics are delaying his healing process. I have explained patient in detail that this is actually very true and that his dependence on narcotics and potential addiction is what is withholding him from a true and good recovery. During a long conversation in discussing his narcotic use history and where he is today as compared to where he was prior and his motivations and how they have changed patient is admitted that he does have a narcotic dependency and he believes he may have had one for some time. I explained patient that we will not be able to harm him and that our goals are to improve him and weaning his narcotic use is the first step in doing this. Overall patient's wounds are difficult but they are improving. His narcotic you should be decreasing unless he is forming a worsening addiction which we cannot conceivably help with. Patient seemed upset but understanding at the end the conversation. -IV abx -diet as tolerated recommend strict diet but does not adhere to plan packing and dressing to abd wounds TID and prn saturation wash wounds daily with Dakins thank you will follow with Gt Mata Mar 24, 2019 15:21
[2019-03-24 16:00] VITALS: BP 130/74
--- NOTE | 2019-03-24 19:08 | NUR ---
HAND-OFF: Report given to RN AYLIN.
[2019-03-24 20:00] VITALS: BP 142/74
--- NOTE | 2019-03-24 20:45 | NUR ---
NURSE NOTES: Pt is in bed, awake and alert. No acute distress noted. Pt has A BM, pt cleaned and repositioned. Pt is given Diludid 4 mg PO as ordered PRN for pain. Pt is easily irritable and lashes out at staff. Fall precaution in place. Bed locked low in position, side rails up and call light within reach. Bed alarm on. Pt will be monitored.
[2019-03-25] VITALS: BP 125/69
[2019-03-25] MEDS: HYDROmorphone 4mg tab ORAL PRN ×6 (00:18→23:25)
--- NOTE | 2019-03-25 02:54 | NUR ---
NURSE NOTES: Pt is in bed, awake. Pt repositioned, Vitals stable.
--- NOTE | 2019-03-25 03:30 | Consultation ---
DATE OF CONSULTATION: 03/24/2019 NOTE: POOR AUDIO PSYCHOTHERAPY CONSULTATION PROGRESS NOTE CONSULTING PHYSICIAN: Liu Jackman PsyD. TREATING ATTENDING PHYSICIAN: Ernesto Nicole D.O. HISTORY OF PRESENT ILLNESS: The patient is 53 years old. This patient was brought into the hospital for intractable pain. He has history of bipolar disorder and for this reason, he was referred for psychotherapeutic services. This clinician assessed the patient today. The patient is extremely agitated and irritable. In fact, he states that he is in severe pain. He states that he underwent surgery of the stomach and since then he has had an open wound. He is feeling anxious, unable to sleep. Denies suicidal or homicidal thoughts of ideation. Denies any auditory or visual hallucinations. However, he is very irritable pain. PAST MEDICAL HISTORY: Includes a history of COPD, cellulitis, morbid obesity, right heart failure, seizures, UTI, hyponatremia. ALLERGIES: The patient has allergy to aspirin, ketorolac, penicillin. SUBSTANCE USE HISTORY: The patient denies history of alcohol use, illicit substance use, or smoking cigarettes. PAST PSYCHIATRIC HISTORY: This patient has a history psychotropic medications in the past. SOCIAL HISTORY: The patient is a 53-year-old . MENTAL STATUS EXAMINATION: Alert and oriented to person, place, time, and situation. Mood is anxious. Affect is labile. Thought process is oriented. Thought content linear. Fair attention and concentration. Fair insight, judgment, and impulse control. DIAGNOSIS: Rule out of bipolar 1 disorder, moderate without psychotic features. . PLAN: . Encouraging the patient to positive communication skills, positive coping skills. psychotherapy provided for this patient was 50 minutes. This clinician has reviewed the patient's chart. Discussed treatment with treatment team. Liu Jackman PsyD. DR: SURENDRA JOB#: [id number] CC:
--- NOTE | 2019-03-25 05:12 | NUR ---
NURSE NOTES: Pt's wound dressing changed. Pt refused blood draw for labs today.
--- NOTE | 2019-03-25 07:07 | NUR ---
CASE MANAGEMENT: REVIEW 03/25/2019 SI:INTRACTABLE PAIN. T 97.8 HR 69 RR 19 B/P 125/69 SATS 95% ON RA NO LABS TODAY IS: LASIX PO Q8H KEPPRA PO Q8H DOXYCYCLINE PO Q12H CYMBALTA PO Q12H NORVASC PO QD LEVAQUIN PO QD MED/SURG STATUS DCP: PATIENT TO BE DISCHARGED TO SNF ONCE MEDICALLY CLEARED.
--- NOTE | 2019-03-25 07:15 | Progress Note ---
DATE: 03/24/2019 SUBJECTIVE: This is a 53-year-old male with intractable pain. He has some confusion, some disorganized thought process, and mood lability worsened by the pain he is under. He has some mood lability, depression, anxiety, and his attending has requested daily psychiatric consultation for this patient. MENTAL STATUS EXAMINATION: This is a 53-year-old male. Appearance is disheveled. Attitude, irritable and agitated. Affect, guarded and restricted. Intellect poor. Mood, depressed and anxious. Motor activity, psychomotor agitation. Attention span is good, but he denies any current suicidal or homicidal thoughts. DIAGNOSIS: Major depressive disorder, mild, recurrent, without psychotic features. PLAN: Treat him with Cymbalta 30 mg a day. A 20 minutes of cognitive behavioral therapy to help him identify his automatic negative thoughts and help him convert those negative thoughts to more positive thoughts to reduce depression, anxiety, and mood lability. Chart reviewed. Discussed with staff. Seen and assessed in his room. Laney Mcghee M.D. DR: ENRIQUE JOB#: [id number] CC:
--- NOTE | 2019-03-25 07:25 | NUR ---
NURSE NOTES: Received report from MICAELA Diane. Pt is in bed and was asleep. Awoken to name and is AAO x 4. Patient is breathing even and unlabored. Pt is easily irritable and lashes out at staff. Fall precaution in place. Bed locked low in position, side rails up and call light within reach. Bed alarm on. Pt will be monitored.
--- NOTE | 2019-03-25 07:30 | NUR ---
HAND-OFF: Report given to MICAELA Capellan.
[2019-03-25 08:00] VITALS: BP 122/82
--- NOTE | 2019-03-25 08:42 | General Progress Note ---
Assessment/Plan Assessment/Plan: (1) Lumbar DDD (2) Lumbar Spondylosis (3) Lumbar Radiculopathy (4) Morbid Obesity (5) Right knee pain (6) Right knee OA h/o ORIF (7) Abdominal pain (8) Panniculus with panniculitis s/p panniculectomy Patient will be continued on Dilaudid and Fentanyl patch D/w Dr. Magaña and he concurred. Subjective Date patient seen: Mar 25, 2019 Time patient seen: 07:45 - am Allergies: Coded Allergies: ASPIRIN (Verified Allergy, Unknown, 07/14/18) KETOROLAC (Verified Allergy, Unknown, 07/14/18) PENICILLINS (Verified Allergy, Unknown, 12/23/18) tolerated Ancef on 08/2018 Subjective REVIEW OF SYSTEMS: Denies rash, fever, chills, sweating, dizziness, drowsiness, blurred vision, sore throat, change in weight. No nausea, vomiting, diarrhea, or blood in the stool or urine. No bowel or bladder incontinence. No dysuria. He is complaining of low back pain and abdominal pain SUBJECTIVE: Patient showing no signs of pain or distress. He continues to c/o severe pain and is using the Dilaudid as needed with the fentanyl patch applied. No new complaints at this time. Objective Last 24 Hour Vital Signs Date Time Temp Pulse Resp B/P (MAP) Pulse Ox O2 Delivery O2 Flow Rate FiO2 03/25/19 00:00 97.8 69 19 125/69 (87) 95 03/24/19 21:00 Room Air 03/24/19 20:00 98.6 79 19 142/74 (96) 95 03/24/19 16:00 97.4 88 18 130/74 (92) 98 03/24/19 14:16 98.3 03/24/19 09:00 Room Air Intake and Output 03/24/19 03/25/19 19:00 07:00 Intake Total 1280 ml 1880 ml Output Total 1200 ml 1200 ml Balance 80 ml 680 ml Intake Oral 1280 ml 1280 ml Other 600 ml Output Urine Total 1200 ml 1200 ml # Voids 1 # Bowel Movements 1 1 Height (Feet): 6 Height (Inches): 0.00 Weight (Pounds): 444 Objective GENERAL: Alert, awake, and oriented x3. LUNGS: Decreased breath sounds bilaterally. HEART: S1 and S2, regular. ABDOMEN: Obese, bandages noted with tenderness to palpation. EXTREMITIES: No cyanosis. No clubbing. No edema. NEURO: No changes. Eliezer Nicole Mar 25, 2019 08:42
[2019-03-25] MEDS: Levofloxacin 750mg tab ORAL SCH (08:43)
[2019-03-25] MEDS: DULoxetine 30mg cap ORAL SCH (08:49)
[2019-03-25] MEDS: Doxycycline Monohydrate 100mg ORAL SCH ×2 (08:49→21:31)
[2019-03-25] MEDS: Dakin's 0.125% Soln (Quarter Strength) 16oz TOPIC SCH (08:50)
--- NOTE | 2019-03-25 09:00 | NUR ---
NURSE NOTES: Patient states dressing change was 6am. Patient refused dressing changed.
[2019-03-25] MEDS ORDERED: Tums 500mg ORAL PRN (10:30)
--- NOTE | 2019-03-25 10:56 | NUR ---
DISCHARGE PLANNING: NOTE CLINICALS FAXED TO [facility] T: [phone] [facility] [phone] [facility] T: [phone] [facility] T: [phone] [facility] T: [phone] [facility] T: [phone] [facility] T: [phone] [facility] T: [phone] [facility] T: [phone] [facility] T: [phone] [facility] T: [phone] AWAITING FAX CONFIRMATION. CM TO F/U Addendum: 03/26/19 at 1453 by YESSICA OAKES CM [facility] T: [phone] S/W IRENE NO BEDS AVAILABLE [facility] T [phone] S/W ALEXIS NO BARIATRIC BEDS AVAILABLE [facility] T: [phone] S/W JASPAL NO BARIATRIC BEDS [facility] T: [phone] [facility] NOT [facility] T: [phone] S/W [place] NO BARIATRIC BEDS AVAILABLE [facility] T: [phone] NOT A SNF [facility] T: [phone] S/W HELENE NO BARIATRIC BEDS AVAILABLE [facility] T: [phone] S/W ANGEL NO BEDS AVAILABLE [facility] T: [phone] S/W NALDO NO BARIATRIC BEDS AVAILABLE [facility] T: [phone] S/W FEL[place] NO BARIATRIC BEDS AVAILABLE [facility] T: [phone] [facility] T: [phone] S/W TIFF NO BARIATRIC BEDS AVAILABLE
--- NOTE | 2019-03-25 11:15 | NUR ---
NURSE NOTES: Patient states he was nauseous and requested medication. See emr.
--- NOTE | 2019-03-25 12:16 | NUR ---
NURSE NOTES: Patient refused lunch.
--- NOTE | 2019-03-25 12:35 | Surgery Progress Note ---
Surgery Progress Note Subjective Additional Comments seen by pain management on dilaudid and fentanyl patch seen by psych on cymbalta Objective Last 24 Hour Vital Signs Date Time Temp Pulse Resp B/P (MAP) Pulse Ox O2 Delivery O2 Flow Rate FiO2 03/25/19 09:19 97.8 03/25/19 09:00 Room Air 03/25/19 08:48 82 122/69 03/25/19 08:00 96.5 82 18 122/82 (95) 98 03/25/19 00:00 97.8 69 19 125/69 (87) 95 03/24/19 21:00 Room Air 03/24/19 20:00 98.6 79 19 142/74 (96) 95 03/24/19 16:00 97.4 88 18 130/74 (92) 98 I&O Intake and Output 03/24/19 03/25/19 19:00 07:00 Intake Total 1280 ml 1880 ml Output Total 1200 ml 1200 ml Balance 80 ml 680 ml Intake Oral 1280 ml 1280 ml Other 600 ml Output Urine Total 1200 ml 1200 ml # Voids 1 # Bowel Movements 1 1 Dressing: saturated Wound: other Drains: other Cardiovascular: RSR Respiratory: clear, decreased breath sounds Abdomen: soft, present bowel sounds, other, non-distended Extremities: edema, no cyanosis Plan Problems: (1) Intractable pain (2) Cellulitis (3) Abdominal wall cellulitis Assessment & Plan: surgical wound with cellulitis and some openings. still with abd wall pannus cellulitis afebrile leukocytosis Patient is becoming more difficult with pain management as he is insistent on IV medications specifically Dilaudid only. He does not want to be transition to oral medications at this time. He uses this is an excuse to not allow for wound care and does not assist with caring for his wounds. In evaluating his wounds at bedside they have a foul odor and some areas are open while others are intact. Patient states that he is willing for therapy but when therapists come to help patient he refuses to participate in physical therapy. Unfortunately becoming a very difficult case as patient states he is motivated to improve and recover but this is only what he tells me and is not how he acts when the teams come to help and assist him with recovery. Furthermore his pain management becoming difficult as he states that he wants an increase in IV pain medications and he only wants them IV and specifically Dilaudid. Will discuss with medical teams to ensure best possible care tates that he had a hold of his medical record he is very upset that we have stated that narcotics are delaying his healing process. I have explained patient in detail that this is actually very true and that his dependence on narcotics and potential addiction is what is withholding him from a true and good recovery. During a long conversation in discussing his narcotic use history and where he is today as compared to where he was prior and his motivations and how they have changed patient is admitted that he does have a narcotic dependency and he believes he may have had one for some time. I explained patient that we will not be able to harm him and that our goals are to improve him and weaning his narcotic use is the first step in doing this. Overall patient's wounds are difficult but they are improving. His narcotic you should be decreasing unless he is forming a worsening addiction which we cannot conceivably help with. Patient seemed upset but understanding at the end the conversation. -IV abx -diet as tolerated recommend strict diet but does not adhere to plan packing and dressing to abd wounds TID and prn saturation wash wounds daily with Dakins thank you will follow with Gt Mata Mar 25, 2019 12:35
--- NOTE | 2019-03-25 14:03 | General Progress Note ---
Assessment/Plan Problem List: (1) Intractable pain ICD Codes: R52 - Pain, unspecified SNOMED: 06060870 (2) Cellulitis ICD Codes: L03.90 - Cellulitis, unspecified SNOMED: 600286471 (3) COPD (chronic obstructive pulmonary disease) ICD Codes: J44.9 - Chronic obstructive pulmonary disease, unspecified SNOMED: 35547720 (4) Morbid obesity ICD Codes: E66.01 - Morbid (severe) obesity due to excess calories SNOMED: 972696889 (5) Lumbar spondylosis ICD Codes: M47.816 - Spondylosis without myelopathy or radiculopathy, lumbar region SNOMED: 754441336 (6) Right heart failure ICD Codes: I50.810 - Right heart failure, unspecified SNOMED: 087512607 (7) ADALBERTO (obstructive sleep apnea) ICD Codes: G47.33 - Obstructive sleep apnea (adult) (pediatric) SNOMED: 75729692 (8) Abdominal pannus ICD Codes: E65 - Localized adiposity SNOMED: 7304251454948 (9) Seizures ICD Codes: R56.9 - Unspecified convulsions SNOMED: 67148981 (10) Cerebrovascular accident ICD Codes: I63.9 - Cerebral infarction, unspecified SNOMED: 714283470 (11) Peripheral edema ICD Codes: R60.9 - Edema, unspecified SNOMED: 211358232 (12) Abdominal wall cellulitis ICD Codes: L03.311 - Cellulitis of abdominal wall SNOMED: 10152160 (13) UTI (urinary tract infection) ICD Codes: N39.0 - Urinary tract infection, site not specified SNOMED: 35360282 (14) Uncontrolled seizures ICD Codes: R56.9 - Unspecified convulsions SNOMED: 97529894 Status: stable, progressing Assessment/Plan: pt diet wound care pain control cbc bmp am dc plan snf if clear Subjective Constitutional: Reports: weakness Allergies: Coded Allergies: ASPIRIN (Verified Allergy, Unknown, 07/14/18) KETOROLAC (Verified Allergy, Unknown, 07/14/18) PENICILLINS (Verified Allergy, Unknown, 12/23/18) tolerated Ancef on 08/2018 All Systems: reviewed and negative except above Subjective sitting calm Objective Last 24 Hour Vital Signs Date Time Temp Pulse Resp B/P (MAP) Pulse Ox O2 Delivery O2 Flow Rate FiO2 03/25/19 09:19 97.8 03/25/19 09:00 Room Air 03/25/19 08:48 82 122/69 03/25/19 08:00 96.5 82 18 122/82 (95) 98 03/25/19 00:00 97.8 69 19 125/69 (87) 95 03/24/19 21:00 Room Air 03/24/19 20:00 98.6 79 19 142/74 (96) 95 03/24/19 16:00 97.4 88 18 130/74 (92) 98 Intake and Output 03/24/19 03/25/19 19:00 07:00 Intake Total 1280 ml 1880 ml Output Total 1200 ml 1200 ml Balance 80 ml 680 ml Intake Oral 1280 ml 1280 ml Other 600 ml Output Urine Total 1200 ml 1200 ml # Voids 1 # Bowel Movements 1 1 Height (Feet): 6 Height (Inches): 0.00 Weight (Pounds): 444 General Appearance: alert EENT: normal ENT inspection Neck: normal alignment Cardiovascular: normal peripheral pulses, normal rate, regular rhythm Respiratory/Chest: chest wall non-tender, lungs clear, normal breath sounds Abdomen: soft, distended Extremities: normal inspection Edema: 1+ Arm (L), 1+ Arm (R), 1+ Leg (L), 1+ Leg (R), 1+ Pedal (L), 1+ Pedal ( R), 1+ Generalized Edema: trace edema Neurologic: responsive, motor weakness Skin: normal pigmentation, warm/dry Ernesto Nicole DO Mar 25, 2019 14:03
[2019-03-25] MEDS: fentaNYL Destruction MISC SCH (16:05)
--- NOTE | 2019-03-25 16:43 | Infectious Diseases Prog Note ---
Assessment/Plan Assessment/Plan Assessment: Surgical site infection; improving -03/05 wound cx : S.aureus, diptheroids -03/04 wound cx MRSA (S tetracycline, bactrim, Vancomycin),K. pna (R amp; otherwise S) 02/01 SP Panniculectomy Afebrile Mild leukocytosis Recent hx of B/l Leg cellulitis and panniculitis 12/2018 - in the setting of chronic venous stasis, s/p Rx Recent seizure episode 11/2018 -had L side weakness and spasticity CVA HTN bipolar disorder w/ psychotic features tobacco abuse anxiety disorder chronic pain CHF seizure disorder COPD morbid obesity Dm2 HTN SNF resident Plan: -Continue PO Doxycycline #14 (abx d #) and Levaquin #12 (abx d #) for SSI -03/17 SP DOxycycline #8, Levaquin #8 -03/10 SP IV Vancomycin #8, Ceftriaxone #5 -10 SP Cefepime #4 -02/08 SP IV Vancomycin #8 -02/04 SP Aztreonam #4 -/ SP Fluconazole #5 - 01/07/19 SP IV Dapto d# 14 - 01/06/19 S/P Levofloxacin #7 - 12/25/18 sp Bactrim #4 and IV Ancef #3 for cellulitis -f/u cx -Monitor CBC/CMP, temperatures -Sx f/u -wound care per surgical team -Patient very difficult to manage; refusing wound care dressings, examination, blood draws and oral antibiotics. Becoming angry and demanding IV pain medications. Thank you for this consultation. Will continue to follow along with you. Discussed with RN Subjective Allergies: Coded Allergies: ASPIRIN (Verified Allergy, Unknown, 07/14/18) KETOROLAC (Verified Allergy, Unknown, 07/14/18) PENICILLINS (Verified Allergy, Unknown, 12/23/18) tolerated Ancef on 08/2018 Subjective afebrile no recent lab Objective Vital Signs Last 24 Hour Vital Signs Date Time Temp Pulse Resp B/P (MAP) Pulse Ox O2 Delivery O2 Flow Rate FiO2 03/25/19 15:41 97.8 03/25/19 09:00 Room Air 03/25/19 08:48 82 122/69 03/25/19 08:00 96.5 82 18 122/82 (95) 98 03/25/19 00:00 97.8 69 19 125/69 (87) 95 03/24/19 21:00 Room Air 03/24/19 20:00 98.6 79 19 142/74 (96) 95 Height (Feet): 6 Height (Inches): 0.00 Weight (Pounds): 444 Objective General appearance: alert, cooperative, no distress, appears stated age Head: Normocephalic, without obvious abnormality, atraumatic Eyes: conjunctivae/corneas clear. PERRL, EOM's intact. Fundi benign Throat: Lips, mucosa, and tongue normal. Teeth and gums normal Neck: supple, symmetrical, trachea midline, no adenopathy, thyroid: not enlarged, symmetric, no tenderness/mass/nodules, no carotid bruit and no JVD Lungs: clear to auscultation bilaterally Heart: regular rate and rhythm, S1, S2 normal, no murmur, click, rub or gallop Abdomen: soft, non-tender. Bowel sounds normal. No masses, no organomegaly; surgical incision with some areas of opening and erythema Extremities: extremities normal, atraumatic, no cyanosis or edema Pulses: 2+ and symmetric Skin: Skin color, texture, turgor normal. No rashes or lesions Neurologic: Grossly normal Current Medications Medications (Trade) Dose Ordered Sig/Luis Route PRN Reason Start Time Stop Time Status Last Admin Dose Admin Acetaminophen (Tylenol) 650 mg Q4H PRN ORAL Mild Pain/Temp > 100.5 03/18/19 04:30 04/17/19 04:29 Amlodipine Besylate (Norvasc) 5 mg DAILY ORAL 03/18/19 09:00 04/17/19 08:59 03/24/19 08:17 Calcium Carbonate (Tums) 1,000 mg Q4H PRN ORAL indigestion 03/25/19 10:30 04/24/19 10:29 03/25/19 11:15 Doxycycline Monohydrate (Doxycycline Monohydrate) 100 mg EVERY 12 HOURS ORAL 03/18/19 21:00 03/28/19 20:59 03/25/19 08:49 Duloxetine HCl (Cymbalta) 30 mg DAILY ORAL 03/18/19 09:00 04/17/19 08:59 03/25/19 08:49 Fentanyl (Duragesic) 1 patch Q48H TDERMAL 03/23/19 16:00 03/30/19 15:59 03/25/19 16:04 Furosemide (Lasix) 10 mg EVERY 8 HOURS ORAL 03/18/19 06:00 04/17/19 05:59 03/25/19 15:11 Hydromorphone HCl (Dilaudid) 4 mg Q4H PRN ORAL Breakthrough pain 4-10 03/21/19 12:30 03/28/19 12:29 03/25/19 15:11 Levetiracetam (Keppra) 1,000 mg EVERY 8 HOURS ORAL 03/18/19 06:00 04/17/19 05:59 03/25/19 15:10 Levofloxacin (Levaquin) 750 mg DAILY ORAL 03/18/19 18:35 03/28/19 18:34 03/25/19 08:43 Miscellaneous Medication (fentaNYL Destruction) 1 ea Q48H MISC 03/23/19 16:00 04/22/19 15:59 03/25/19 16:05 Naloxone HCl (Narcan) 0.1 mg PRN IV Sedation scale 3 or 4 03/18/19 04:30 Ondansetron HCl (Zofran) 4 mg Q4H PRN ORAL Nausea & Vomiting 03/25/19 10:30 04/24/19 10:29 03/25/19 11:15 Ondansetron HCl (Zofran) 4 mg Q6H PRN IVP Nausea & Vomiting 03/25/19 10:30 04/17/19 04:29 Polyethylene Glycol (Miralax) 17 gm DAILY PRN ORAL Constipation 03/18/19 04:30 04/17/19 04:29 Sodium Hypochlorite (Dakin's Quarter Strength) 1 applic DAILY TOPIC 03/23/19 15:00 04/22/19 14:59 03/25/19 08:50 Alexa Patterson M.D. Mar 25, 2019 16:43
--- NOTE | 2019-03-25 19:35 | NUR ---
HAND-OFF: Report given to MICAELA Hyman.
--- NOTE | 2019-03-25 19:36 | NUR ---
NURSE NOTES: Received patient in no apparent distress. A&OX4. IV site patent and intact. Pires cath noted, draining well by gravity, yellow urine noted. Dressing noted on abdomen, dry and intact. Bed in lowest position. Call light within reach. Will continue to monitor.
[2019-03-25 20:00] VITALS: BP 139/83
--- NOTE | 2019-03-25 23:30 | NUR ---
NURSE NOTES: Patient refused change dressing on abdomen. Explained risk and benefit but still refused. Patient keep say "I'm all right".
[2019-03-26] VITALS: BP 139/75
[2019-03-26] MEDS: HYDROmorphone 4mg tab ORAL PRN ×5 (03:30→21:30)
--- NOTE | 2019-03-26 04:20 | NUR ---
NURSE NOTES: Dressing changed on abdomen area.
--- NOTE | 2019-03-26 06:15 | NUR ---
NURSE NOTES: Patient refused blood lab draw. Explained importance of monitoring but still refused. Will try again later.
--- NOTE | 2019-03-26 07:30 | NUR ---
HAND-OFF: Report given to Stephanie HINOJOSA.
--- NOTE | 2019-03-26 07:32 | NUR ---
NURSE NOTES: Received patient from MICAELA Hyman. Patient is resting in bed, sleeping in stable condition with no signs and symptoms of acute distress at this moment. Per night nurse patient refused to have the side rail padded. Bed in lowest position with two side rails up. Call light and bed side table within reach. Will continue to monitor.
--- NOTE | 2019-03-26 08:57 | General Progress Note ---
Assessment/Plan Assessment/Plan: (1) Lumbar DDD (2) Lumbar Spondylosis (3) Lumbar Radiculopathy (4) Morbid Obesity (5) Right knee pain (6) Right knee OA h/o ORIF (7) Abdominal pain (8) Panniculus with panniculitis s/p panniculectomy Patient will be continued on Dilaudid and Fentanyl patch RX for Fentanyl patch and Dilaudid written in anticipation for discharge. D/w Dr. Magaña and he concurred. Subjective Date patient seen: Mar 26, 2019 Time patient seen: 08:00 - am Allergies: Coded Allergies: ASPIRIN (Verified Allergy, Unknown, 07/14/18) KETOROLAC (Verified Allergy, Unknown, 07/14/18) PENICILLINS (Verified Allergy, Unknown, 12/23/18) tolerated Ancef on 08/2018 Subjective REVIEW OF SYSTEMS: Denies rash, fever, chills, sweating, dizziness, drowsiness, blurred vision, sore throat, change in weight. No nausea, vomiting, diarrhea, or blood in the stool or urine. No bowel or bladder incontinence. No dysuria. He is complaining of low back pain and abdominal pain SUBJECTIVE: Patient is in bed no signs of pain or distress. He continues to c/o pain in his back and abdominal area which is worse with movement. The pain has been tolerated on the Fentanyl patch and dilaudid. He has no new complaints at this time. Objective Last 24 Hour Vital Signs Date Time Temp Pulse Resp B/P (MAP) Pulse Ox O2 Delivery O2 Flow Rate FiO2 03/26/19 00:00 97.4 79 20 139/75 (96) 98 03/25/19 21:00 Room Air 03/25/19 20:00 98.6 77 18 139/83 (101) 99 03/25/19 16:34 97.8 03/25/19 15:41 97.8 03/25/19 09:00 Room Air Intake and Output 03/25/19 03/26/19 18:59 06:59 Intake Total 700 ml 1120 ml Output Total 1800 ml 2150 ml Balance -1100 ml -1030 ml Intake Oral 700 ml 1120 ml Output Urine Total 1800 ml 2150 ml # Voids 2 Height (Feet): 6 Height (Inches): 0.00 Weight (Pounds): 444 Objective GENERAL: Alert, awake, and oriented x3. LUNGS: Decreased breath sounds bilaterally. HEART: S1 and S2, regular. ABDOMEN: Obese, bandages noted with tenderness to palpation. EXTREMITIES: No cyanosis. No clubbing. No edema. NEURO: No changes. Eliezer Nicole Mar 26, 2019 08:57
[2019-03-26 09:00] VITALS: BP 130/73
--- NOTE | 2019-03-26 09:16 | General Progress Note ---
Assessment/Plan Problem List: (1) Intractable pain ICD Codes: R52 - Pain, unspecified SNOMED: 29373983 (2) Cellulitis ICD Codes: L03.90 - Cellulitis, unspecified SNOMED: 173683954 (3) COPD (chronic obstructive pulmonary disease) ICD Codes: J44.9 - Chronic obstructive pulmonary disease, unspecified SNOMED: 43582391 (4) Morbid obesity ICD Codes: E66.01 - Morbid (severe) obesity due to excess calories SNOMED: 549176204 (5) Lumbar spondylosis ICD Codes: M47.816 - Spondylosis without myelopathy or radiculopathy, lumbar region SNOMED: 373677338 (6) Right heart failure ICD Codes: I50.810 - Right heart failure, unspecified SNOMED: 837573467 (7) ADALBERTO (obstructive sleep apnea) ICD Codes: G47.33 - Obstructive sleep apnea (adult) (pediatric) SNOMED: 76725725 (8) Abdominal pannus ICD Codes: E65 - Localized adiposity SNOMED: 0345077224789 (9) Seizures ICD Codes: R56.9 - Unspecified convulsions SNOMED: 29088649 (10) Cerebrovascular accident ICD Codes: I63.9 - Cerebral infarction, unspecified SNOMED: 472695605 (11) Peripheral edema ICD Codes: R60.9 - Edema, unspecified SNOMED: 042861257 (12) Abdominal wall cellulitis ICD Codes: L03.311 - Cellulitis of abdominal wall SNOMED: 14235599 (13) UTI (urinary tract infection) ICD Codes: N39.0 - Urinary tract infection, site not specified SNOMED: 53833219 (14) Uncontrolled seizures ICD Codes: R56.9 - Unspecified convulsions SNOMED: 81805599 Status: stable, progressing Assessment/Plan: pt diet wound care pain control cbc bmp am dc plan snf if clear Subjective Constitutional: Reports: weakness Allergies: Coded Allergies: ASPIRIN (Verified Allergy, Unknown, 07/14/18) KETOROLAC (Verified Allergy, Unknown, 07/14/18) PENICILLINS (Verified Allergy, Unknown, 12/23/18) tolerated Ancef on 08/2018 All Systems: reviewed and negative except above Subjective sleepy calm Objective Last 24 Hour Vital Signs Date Time Temp Pulse Resp B/P (MAP) Pulse Ox O2 Delivery O2 Flow Rate FiO2 03/26/19 00:00 97.4 79 20 139/75 (96) 98 03/25/19 21:00 Room Air 03/25/19 20:00 98.6 77 18 139/83 (101) 99 03/25/19 16:34 97.8 03/25/19 15:41 97.8 Intake and Output 03/25/19 03/26/19 18:59 06:59 Intake Total 700 ml 1120 ml Output Total 1800 ml 2150 ml Balance -1100 ml -1030 ml Intake Oral 700 ml 1120 ml Output Urine Total 1800 ml 2150 ml # Voids 2 Height (Feet): 6 Height (Inches): 0.00 Weight (Pounds): 444 General Appearance: lethargic EENT: normal ENT inspection Neck: normal alignment Cardiovascular: normal peripheral pulses, normal rate, regular rhythm Respiratory/Chest: chest wall non-tender, lungs clear, normal breath sounds Abdomen: soft, distended Extremities: normal inspection Edema: 1+ Arm (L), 1+ Arm (R), 1+ Leg (L), 1+ Leg (R), 1+ Pedal (L), 1+ Pedal ( R), 1+ Generalized Neurologic: responsive, motor weakness Skin: normal pigmentation, warm/dry Ernesto Nicole DO Mar 26, 2019 09:16
[2019-03-26] MEDS: Levofloxacin 750mg tab ORAL SCH (09:41)
[2019-03-26] MEDS: DULoxetine 30mg cap ORAL SCH (09:41)
[2019-03-26] MEDS: Dakin's 0.125% Soln (Quarter Strength) 16oz TOPIC SCH (09:41)
[2019-03-26] MEDS: Doxycycline Monohydrate 100mg ORAL SCH ×2 (09:41→21:29)
--- NOTE | 2019-03-26 09:45 | NUR ---
NURSE NOTES: Asked the patient to change his IV site, Patient refused that.
--- NOTE | 2019-03-26 10:02 | Surgery Progress Note ---
Surgery Progress Note Subjective Additional Comments no acute events dressings changed doing well is still not happy about his pain medication regimen wound much improved Objective Last 24 Hour Vital Signs Date Time Temp Pulse Resp B/P (MAP) Pulse Ox O2 Delivery O2 Flow Rate FiO2 03/26/19 09:00 Room Air 03/26/19 00:00 97.4 79 20 139/75 (96) 98 03/25/19 21:00 Room Air 03/25/19 20:00 98.6 77 18 139/83 (101) 99 03/25/19 16:34 97.8 03/25/19 15:41 97.8 I&O Intake and Output 03/25/19 03/26/19 18:59 06:59 Intake Total 700 ml 1120 ml Output Total 1800 ml 2150 ml Balance -1100 ml -1030 ml Intake Oral 700 ml 1120 ml Output Urine Total 1800 ml 2150 ml # Voids 2 Dressing: saturated Wound: clean Cardiovascular: RSR Respiratory: clear Abdomen: soft, non-tender, present bowel sounds, other Extremities: edema, no cyanosis Plan Problems: (1) Intractable pain (2) Cellulitis (3) Abdominal wall cellulitis Assessment & Plan: surgical wound with cellulitis and some openings. still with abd wall pannus cellulitis afebrile leukocytosis Patient is becoming more difficult with pain management as he is insistent on IV medications specifically Dilaudid only. He does not want to be transition to oral medications at this time. He uses this is an excuse to not allow for wound care and does not assist with caring for his wounds. In evaluating his wounds at bedside they have a foul odor and some areas are open while others are intact. Patient states that he is willing for therapy but when therapists come to help patient he refuses to participate in physical therapy. Unfortunately becoming a very difficult case as patient states he is motivated to improve and recover but this is only what he tells me and is not how he acts when the teams come to help and assist him with recovery. Furthermore his pain management becoming difficult as he states that he wants an increase in IV pain medications and he only wants them IV and specifically Dilaudid. Will discuss with medical teams to ensure best possible care tates that he had a hold of his medical record he is very upset that we have stated that narcotics are delaying his healing process. I have explained patient in detail that this is actually very true and that his dependence on narcotics and potential addiction is what is withholding him from a true and good recovery. During a long conversation in discussing his narcotic use history and where he is today as compared to where he was prior and his motivations and how they have changed patient is admitted that he does have a narcotic dependency and he believes he may have had one for some time. I explained patient that we will not be able to harm him and that our goals are to improve him and weaning his narcotic use is the first step in doing this. Overall patient's wounds are difficult but they are improving. His narcotic you should be decreasing unless he is forming a worsening addiction which we cannot conceivably help with. Patient seemed upset but understanding at the end the conversation. patients wound improving with dakins foul odor improved cont with dressing changes. -IV abx -diet as tolerated recommend strict diet but does not adhere to plan packing and dressing to abd wounds TID and prn saturation wash wounds daily with Dakins thank you will follow with Gt Mata Mar 26, 2019 10:02
--- NOTE | 2019-03-26 11:50 | NUR ---
PT WEEKLY PROGRESS NOTE Patient demonstrating improved mobility as patient has been cleared for OOB activities. Patient able to come to sitting at the EOB with max assist of 2 people and is able to sit unsupported at the EOB. Patient requires assist of 4 people to return to bed and is unable to stand currently. Patient will benefit from continued inpatient PT intervention to increase strength and endurance for improved functional mobility.
[2019-03-26 12:00] VITALS: BP 128/74
--- NOTE | 2019-03-26 15:09 | Infectious Diseases Prog Note ---
Assessment/Plan Assessment/Plan Assessment: Surgical site infection; improving -03/05 wound cx : S.aureus, diptheroids -03/04 wound cx MRSA (S tetracycline, bactrim, Vancomycin),K. pna (R amp; otherwise S) 02/01 SP Panniculectomy Afebrile Mild leukocytosis Recent hx of B/l Leg cellulitis and panniculitis 12/2018 - in the setting of chronic venous stasis, s/p Rx Recent seizure episode 11/2018 -had L side weakness and spasticity CVA HTN bipolar disorder w/ psychotic features tobacco abuse anxiety disorder chronic pain CHF seizure disorder COPD morbid obesity Dm2 HTN SNF resident Plan: -Continue PO Doxycycline #15 (abx d #) and Levaquin #13 (abx d #) for SSI -03/17 SP DOxycycline #8, Levaquin #8 -03/10 SP IV Vancomycin #8, Ceftriaxone #5 -03/06 SP Cefepime #4 -02/08 SP IV Vancomycin #8 -02/04 SP Aztreonam #4 -/ SP Fluconazole #5 - 01/07/19 SP IV Dapto d# 14 - 01/06/19 S/P Levofloxacin #7 - 12/25/18 sp Bactrim #4 and IV Ancef #3 for cellulitis -f/u cx -Monitor CBC/CMP, temperatures -Sx f/u -wound care per surgical team -Patient very difficult to manage; refusing wound care dressings, examination, blood draws and oral antibiotics. Becoming angry and demanding IV pain medications. Thank you for this consultation. Will continue to follow along with you. Discussed with RN Subjective Allergies: Coded Allergies: ASPIRIN (Verified Allergy, Unknown, 07/14/18) KETOROLAC (Verified Allergy, Unknown, 07/14/18) PENICILLINS (Verified Allergy, Unknown, 12/23/18) tolerated Ancef on 08/2018 Subjective afebrile no recent lab Objective Vital Signs Last 24 Hour Vital Signs Date Time Temp Pulse Resp B/P (MAP) Pulse Ox O2 Delivery O2 Flow Rate FiO2 03/26/19 12:00 97.3 83 20 128/74 (92) 95 03/26/19 09:30 79 130/73 03/26/19 09:00 Room Air 03/26/19 09:00 97.8 79 20 130/73 (92) 98 03/26/19 00:00 97.4 79 20 139/75 (96) 98 03/25/19 21:00 Room Air 03/25/19 20:00 98.6 77 18 139/83 (101) 99 03/25/19 16:34 97.8 03/25/19 15:41 97.8 Height (Feet): 6 Height (Inches): 0.00 Weight (Pounds): 444 Objective General appearance: alert, cooperative, no distress, appears stated age Head: Normocephalic, without obvious abnormality, atraumatic Eyes: conjunctivae/corneas clear. PERRL, EOM's intact. Fundi benign Throat: Lips, mucosa, and tongue normal. Teeth and gums normal Neck: supple, symmetrical, trachea midline, no adenopathy, thyroid: not enlarged, symmetric, no tenderness/mass/nodules, no carotid bruit and no JVD Lungs: clear to auscultation bilaterally Heart: regular rate and rhythm, S1, S2 normal, no murmur, click, rub or gallop Abdomen: soft, non-tender. Bowel sounds normal. No masses, no organomegaly; surgical incision with some areas of opening and erythema Extremities: extremities normal, atraumatic, no cyanosis or edema Pulses: 2+ and symmetric Skin: Skin color, texture, turgor normal. No rashes or lesions Neurologic: Grossly normal Current Medications Medications (Trade) Dose Ordered Sig/Luis Route PRN Reason Start Time Stop Time Status Last Admin Dose Admin Acetaminophen (Tylenol) 650 mg Q4H PRN ORAL Mild Pain/Temp > 100.5 03/18/19 04:30 04/17/19 04:29 Amlodipine Besylate (Norvasc) 5 mg DAILY ORAL 03/18/19 09:00 04/17/19 08:59 03/24/19 08:17 Calcium Carbonate (Tums) 1,000 mg Q4H PRN ORAL indigestion 03/25/19 10:30 04/24/19 10:29 03/25/19 11:15 Doxycycline Monohydrate (Doxycycline Monohydrate) 100 mg EVERY 12 HOURS ORAL 03/18/19 21:00 03/28/19 20:59 03/26/19 09:41 Duloxetine HCl (Cymbalta) 30 mg DAILY ORAL 03/18/19 09:00 04/17/19 08:59 03/26/19 09:41 Fentanyl (Duragesic) 1 patch Q48H TDERMAL 03/23/19 16:00 03/30/19 15:59 03/25/19 16:04 Furosemide (Lasix) 10 mg EVERY 8 HOURS ORAL 03/18/19 06:00 04/17/19 05:59 03/26/19 14:05 Hydromorphone HCl (Dilaudid) 4 mg Q4H PRN ORAL Breakthrough pain 4-10 03/21/19 12:30 03/28/19 12:29 03/26/19 12:23 Levetiracetam (Keppra) 1,000 mg EVERY 8 HOURS ORAL 03/18/19 06:00 04/17/19 05:59 03/26/19 14:05 Levofloxacin (Levaquin) 750 mg DAILY ORAL 03/18/19 18:35 03/28/19 18:34 03/26/19 09:41 Miscellaneous Medication (fentaNYL Destruction) 1 ea Q48H MISC 03/23/19 16:00 04/22/19 15:59 03/25/19 16:05 Naloxone HCl (Narcan) 0.1 mg PRN IV Sedation scale 3 or 4 03/18/19 04:30 Ondansetron HCl (Zofran) 4 mg Q4H PRN ORAL Nausea & Vomiting 03/25/19 10:30 04/24/19 10:29 03/26/19 08:18 Ondansetron HCl (Zofran) 4 mg Q6H PRN IVP Nausea & Vomiting 03/25/19 10:30 04/17/19 04:29 Polyethylene Glycol (Miralax) 17 gm DAILY PRN ORAL Constipation 03/18/19 04:30 04/17/19 04:29 Sodium Hypochlorite (Dakin's Quarter Strength) 1 applic DAILY TOPIC 03/23/19 15:00 04/22/19 14:59 03/26/19 09:41 Alexa Patterson M.D. Mar 26, 2019 15:09
--- NOTE | 2019-03-26 15:45 | Progress Note ---
DATE: 03/26/2019 HISTORY: This is a 53-year-old male patient with intractable pain. He has a lot of psychomotor agitation, but he has a lot of depression and anxiety worsened by the stress of his medical illness. That is why, he does require daily psychiatric consultation because he has increased depression, anxiety, and mood lability worsened by the stress of his medical illness. That is why, his attending has requested daily psychiatric consultation. MENTAL STATUS EXAMINATION: This is a 53-year-old male. His appearance is disheveled. Attitude, irritable and agitated. Affect, guarded and restricted. Intellect poor. Mood, depressed and anxious. Motor activity, psychomotor agitation. Attention span is poor. Orientation x2. Speech is low volume and slurred. Thought process, disorganized and illogical. Thought content, auditory hallucinations and paranoid delusions. Insight and judgment is poor. DIAGNOSIS: Major depressive disorder, mild, recurrent, without psychotic features, rule out generalized anxiety disorder. PLAN: Treat him with Cymbalta 30 mg a day. Provided him with 20 minutes of reality-based supportive psychotherapy. I encouraged him to interact appropriately with staff and other patients. A 20 minutes of cognitive behavioral therapy provided to help him identify his automatic negative thoughts and help him convert those negative thoughts to more positive thoughts to reduce depression, anxiety, and suicidality. Chart reviewed. Discussed with staff. Seen and assessed in his room. Laney Mcghee M.D. DR: ENRIQUE JOB#: [id number] CC:
--- NOTE | 2019-03-26 16:28 | NUR ---
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 97.3 HR 83 RR 20 B/P 128/74 RA 98% IS: LEVAQUIN PO DOXYCYCLINE PO LASIX PO KEPPRA PO MED/SURG STATUS
--- NOTE | 2019-03-26 19:05 | NUR ---
HAND-OFF: Report given to MICAELA Hyman.
[2019-03-26 20:00] VITALS: BP 118/71
--- NOTE | 2019-03-26 23:00 | NUR ---
NURSE NOTES: Patient refused change dressing on abdomen. Explained risk and benefit but still refused.
[2019-03-27] MEDS: HYDROmorphone 4mg tab ORAL PRN ×4 (02:41→21:58)
--- NOTE | 2019-03-27 07:38 | NUR ---
HAND-OFF: Report given to Matteo Nguyen RN.
--- NOTE | 2019-03-27 07:44 | NUR ---
NURSE NOTES: Received pt form MICAELA Barrett. pt was resting, no acute distress. call light w/in reach.
[2019-03-27] MEDS: DULoxetine 30mg cap ORAL SCH (08:32)
[2019-03-27] MEDS: Levofloxacin 750mg tab ORAL SCH (08:32)
[2019-03-27] MEDS: Doxycycline Monohydrate 100mg ORAL SCH ×2 (08:32→21:58)
[2019-03-27] MEDS: Dakin's 0.125% Soln (Quarter Strength) 16oz TOPIC SCH (08:33)
--- NOTE | 2019-03-27 09:34 | General Progress Note ---
Assessment/Plan Problem List: (1) Intractable pain ICD Codes: R52 - Pain, unspecified SNOMED: 94131407 (2) Cellulitis ICD Codes: L03.90 - Cellulitis, unspecified SNOMED: 436950865 (3) COPD (chronic obstructive pulmonary disease) ICD Codes: J44.9 - Chronic obstructive pulmonary disease, unspecified SNOMED: 72605575 (4) Morbid obesity ICD Codes: E66.01 - Morbid (severe) obesity due to excess calories SNOMED: 499336209 (5) Lumbar spondylosis ICD Codes: M47.816 - Spondylosis without myelopathy or radiculopathy, lumbar region SNOMED: 471558418 (6) Right heart failure ICD Codes: I50.810 - Right heart failure, unspecified SNOMED: 331021227 (7) ADALBERTO (obstructive sleep apnea) ICD Codes: G47.33 - Obstructive sleep apnea (adult) (pediatric) SNOMED: 99377779 (8) Abdominal pannus ICD Codes: E65 - Localized adiposity SNOMED: 1662390393524 (9) Seizures ICD Codes: R56.9 - Unspecified convulsions SNOMED: 41228259 (10) Cerebrovascular accident ICD Codes: I63.9 - Cerebral infarction, unspecified SNOMED: 043089820 (11) Peripheral edema ICD Codes: R60.9 - Edema, unspecified SNOMED: 022394292 (12) Abdominal wall cellulitis ICD Codes: L03.311 - Cellulitis of abdominal wall SNOMED: 53126349 (13) UTI (urinary tract infection) ICD Codes: N39.0 - Urinary tract infection, site not specified SNOMED: 45909681 (14) Uncontrolled seizures ICD Codes: R56.9 - Unspecified convulsions SNOMED: 01369097 Status: stable, progressing Assessment/Plan: pt diet wound care pain control cbc bmp am dc plan snf if clear Subjective Constitutional: Reports: weakness Allergies: Coded Allergies: ASPIRIN (Verified Allergy, Unknown, 07/14/18) KETOROLAC (Verified Allergy, Unknown, 07/14/18) PENICILLINS (Verified Allergy, Unknown, 12/23/18) tolerated Ancef on 08/2018 All Systems: reviewed and negative except above Subjective sleepy calm Objective Last 24 Hour Vital Signs Date Time Temp Pulse Resp B/P (MAP) Pulse Ox O2 Delivery O2 Flow Rate FiO2 03/27/19 08:33 78 124/68 03/27/19 07:55 Room Air 03/26/19 21:00 Room Air 03/26/19 20:00 98.9 76 18 118/71 (87) 96 03/26/19 12:00 97.3 83 20 128/74 (92) 95 Intake and Output 03/26/19 03/27/19 18:59 06:59 Intake Total 2400 ml 960 ml Output Total 1400 ml 2200 ml Balance 1000 ml -1240 ml Intake Oral 2400 ml 960 ml Output Urine Total 1400 ml 2200 ml Height (Feet): 6 Height (Inches): 0.00 Weight (Pounds): 444 General Appearance: lethargic EENT: normal ENT inspection Neck: normal alignment Cardiovascular: normal peripheral pulses, normal rate, regular rhythm Respiratory/Chest: chest wall non-tender, lungs clear, normal breath sounds Abdomen: soft, distended Extremities: normal inspection Edema: 1+ Arm (L), 1+ Arm (R), 1+ Leg (L), 1+ Leg (R), 1+ Pedal (L), 1+ Pedal ( R), 1+ Generalized Neurologic: responsive, motor weakness Skin: normal pigmentation, warm/dry Ernesto Nicole DO Mar 27, 2019 09:34
--- NOTE | 2019-03-27 10:00 | NUR ---
NURSE NOTES: Abd dressing changed pt well tolerated. refused to put side pad for precaution of seizure activity.
--- NOTE | 2019-03-27 11:41 | Infectious Diseases Prog Note ---
Assessment/Plan Assessment/Plan Assessment: Surgical site infection; improving -03/05 wound cx : S.aureus, diptheroids -03/04 wound cx MRSA (S tetracycline, bactrim, Vancomycin),K. pna (R amp; otherwise S) 02/01 SP Panniculectomy Afebrile Mild leukocytosis Recent hx of B/l Leg cellulitis and panniculitis 12/2018 - in the setting of chronic venous stasis, s/p Rx Recent seizure episode 11/2018 -had L side weakness and spasticity CVA HTN bipolar disorder w/ psychotic features tobacco abuse anxiety disorder chronic pain CHF seizure disorder COPD morbid obesity Dm2 HTN SNF resident Plan: -Continue PO Doxycycline #16 (abx d #) and Levaquin #14 (abx d #) for SSI -03/17 SP DOxycycline #8, Levaquin #8 -03/10 SP IV Vancomycin #8, Ceftriaxone #5 -03/06 SP Cefepime #4 -02/08 SP IV Vancomycin #8 -02/04 SP Aztreonam #4 -/ SP Fluconazole #5 - 01/07/19 SP IV Dapto d# 14 - 01/06/19 S/P Levofloxacin #7 - 12/25/18 sp Bactrim #4 and IV Ancef #3 for cellulitis -f/u cx -Monitor CBC/CMP, temperatures -Sx f/u -wound care per surgical team -Patient very difficult to manage; refusing wound care dressings, examination, blood draws and oral antibiotics. Becoming angry and demanding IV pain medications. Subjective Allergies: Coded Allergies: ASPIRIN (Verified Allergy, Unknown, 07/14/18) KETOROLAC (Verified Allergy, Unknown, 07/14/18) PENICILLINS (Verified Allergy, Unknown, 12/23/18) tolerated Ancef on 08/2018 Subjective Afebrile Objective Vital Signs Last 24 Hour Vital Signs Date Time Temp Pulse Resp B/P (MAP) Pulse Ox O2 Delivery O2 Flow Rate FiO2 03/27/19 08:33 78 124/68 03/27/19 07:55 Room Air 03/26/19 21:00 Room Air 03/26/19 20:00 98.9 76 18 118/71 (87) 96 03/26/19 12:00 97.3 83 20 128/74 (92) 95 Height (Feet): 6 Height (Inches): 0.00 Weight (Pounds): 444 Respiratory/Chest: normal breath sounds Cardiovascular: regularly irregular Abdomen: non distended Current Medications Medications (Trade) Dose Ordered Sig/Luis Route PRN Reason Start Time Stop Time Status Last Admin Dose Admin Acetaminophen (Tylenol) 650 mg Q4H PRN ORAL Mild Pain/Temp > 100.5 03/18/19 04:30 04/17/19 04:29 Amlodipine Besylate (Norvasc) 5 mg DAILY ORAL 03/18/19 09:00 04/17/19 08:59 03/27/19 08:33 Calcium Carbonate (Tums) 1,000 mg Q4H PRN ORAL indigestion 03/25/19 10:30 04/24/19 10:29 03/25/19 11:15 Doxycycline Monohydrate (Doxycycline Monohydrate) 100 mg EVERY 12 HOURS ORAL 03/27/19 21:00 04/03/19 20:59 Duloxetine HCl (Cymbalta) 30 mg DAILY ORAL 03/18/19 09:00 04/17/19 08:59 03/27/19 08:32 Fentanyl (Duragesic) 1 patch Q48H TDERMAL 03/23/19 16:00 03/30/19 15:59 03/25/19 16:04 Furosemide (Lasix) 10 mg EVERY 8 HOURS ORAL 03/18/19 06:00 04/17/19 05:59 03/27/19 06:45 Hydromorphone HCl (Dilaudid) 4 mg Q4H PRN ORAL Breakthrough pain 4-10 03/21/19 12:30 03/28/19 12:29 03/27/19 06:45 Levetiracetam (Keppra) 1,000 mg EVERY 8 HOURS ORAL 03/18/19 06:00 04/17/19 05:59 03/27/19 06:46 Levofloxacin (Levaquin) 750 mg DAILY ORAL 03/28/19 09:00 04/04/19 08:59 Miscellaneous Medication (fentaNYL Destruction) 1 ea Q48H MISC 03/23/19 16:00 04/22/19 15:59 03/25/19 16:05 Naloxone HCl (Narcan) 0.1 mg PRN IV Sedation scale 3 or 4 03/18/19 04:30 Ondansetron HCl (Zofran) 4 mg Q4H PRN ORAL Nausea & Vomiting 03/25/19 10:30 04/24/19 10:29 03/26/19 17:04 Ondansetron HCl (Zofran) 4 mg Q6H PRN IVP Nausea & Vomiting 03/25/19 10:30 04/17/19 04:29 Polyethylene Glycol (Miralax) 17 gm DAILY PRN ORAL Constipation 03/18/19 04:30 04/17/19 04:29 Sodium Hypochlorite (Dakin's Quarter Strength) 1 applic DAILY TOPIC 03/23/19 15:00 04/22/19 14:59 03/27/19 08:33 Harry Frank MD Mar 27, 2019 11:41
[2019-03-27] MEDS: fentaNYL Destruction MISC SCH (16:05)
--- NOTE | 2019-03-27 18:26 | Surgery Progress Note ---
Surgery Progress Note Subjective Additional Comments doing well is still unhappy about pain medication lots of juice and soda at bedside dressings going well refusing some care states sitting up at bedside Objective Last 24 Hour Vital Signs Date Time Temp Pulse Resp B/P (MAP) Pulse Ox O2 Delivery O2 Flow Rate FiO2 03/27/19 08:33 78 124/68 03/27/19 07:55 Room Air 03/26/19 21:00 Room Air 03/26/19 20:00 98.9 76 18 118/71 (87) 96 I&O Intake and Output 03/26/19 03/27/19 19:00 07:00 Intake Total 2400 ml 960 ml Output Total 1400 ml 2200 ml Balance 1000 ml -1240 ml Intake Oral 2400 ml 960 ml Output Urine Total 1400 ml 2200 ml Dressing: saturated Wound: clean Cardiovascular: RSR Respiratory: clear Abdomen: soft, flat, non-tender, present bowel sounds, other Extremities: edema, no tenderness, no cyanosis Plan Problems: (1) Intractable pain (2) Cellulitis (3) Abdominal wall cellulitis Assessment & Plan: surgical wound with cellulitis and some openings. still with abd wall pannus cellulitis afebrile leukocytosis Patient is becoming more difficult with pain management as he is insistent on IV medications specifically Dilaudid only. He does not want to be transition to oral medications at this time. He uses this is an excuse to not allow for wound care and does not assist with caring for his wounds. In evaluating his wounds at bedside they have a foul odor and some areas are open while others are intact. Patient states that he is willing for therapy but when therapists come to help patient he refuses to participate in physical therapy. Unfortunately becoming a very difficult case as patient states he is motivated to improve and recover but this is only what he tells me and is not how he acts when the teams come to help and assist him with recovery. Furthermore his pain management becoming difficult as he states that he wants an increase in IV pain medications and he only wants them IV and specifically Dilaudid. Will discuss with medical teams to ensure best possible care tates that he had a hold of his medical record he is very upset that we have stated that narcotics are delaying his healing process. I have explained patient in detail that this is actually very true and that his dependence on narcotics and potential addiction is what is withholding him from a true and good recovery. During a long conversation in discussing his narcotic use history and where he is today as compared to where he was prior and his motivations and how they have changed patient is admitted that he does have a narcotic dependency and he believes he may have had one for some time. I explained patient that we will not be able to harm him and that our goals are to improve him and weaning his narcotic use is the first step in doing this. Overall patient's wounds are difficult but they are improving. His narcotic you should be decreasing unless he is forming a worsening addiction which we cannot conceivably help with. Patient seemed upset but understanding at the end the conversation. patients wound improving with dakins foul odor improved cont with dressing changes. -IV abx -diet as tolerated recommend strict diet but does not adhere to plan packing and dressing to abd wounds TID and prn saturation wash wounds daily with Dakins thank you will follow with Gt Mata Mar 27, 2019 18:26
--- NOTE | 2019-03-27 19:47 | NUR ---
HAND-OFF: Report given to Elizabeth Boucher RN. pt is stable. .
[2019-03-27] MEDS ORDERED: Doxycycline Monohydrate 100mg ORAL SCH (21:00)
--- NOTE | 2019-03-27 21:00 | NUR ---
NURSE NOTES: REFUSED WOUND CARE X2-
--- NOTE | 2019-03-27 21:45 | Progress Note ---
DATE: 03/27/2019 SUBJECTIVE: This is a 53-year-old male with intractable pain. He is confused, disorganized, and altered mental status. He continues to have increased depression worsened by stress of his medical illness. That is why his attending has requested daily psychiatric consultation. MENTAL STATUS EXAMINATION: This is a 53-year-old male. Appearance is disheveled. Attitude, irritable and agitated. Affect, guarded and restricted. Intellect, poor. Mood, depressed and anxious. Motor activity, psychomotor agitation. Insight and judgment is poor. DIAGNOSIS: Paranoid schizophrenia with acute exacerbation. PLAN: Treat him with the psychotropic medication regimen consisting of Cymbalta 30 mg daily. 20 minutes of cognitive behavioral therapy to help him identify automatic negative thoughts and help him those convert negative thoughts to more positive thoughts to reduce depression, anxiety, and mood lability. Chart reviewed. Discussed with staff. Seen and assessed in his room. Laney Mcghee M.D. DR: SHANEKA JOB#: [id number] CC:
[2019-03-28] MEDS: HYDROmorphone 4mg tab ORAL PRN ×4 (02:10→23:57)
[2019-03-28 04:00] VITALS: BP 109/56
--- NOTE | 2019-03-28 06:44 | NUR ---
NURSE NOTES: RESTED WELL. SAFETY MAINTAINED THROUGHOUT THE NIGHT. NAD.
--- NOTE | 2019-03-28 07:42 | NUR ---
HAND-OFF: Report given to Robert CROSS/RN.
--- NOTE | 2019-03-28 08:56 | General Progress Note ---
Assessment/Plan Problem List: (1) Intractable pain ICD Codes: R52 - Pain, unspecified SNOMED: 11084134 (2) Cellulitis ICD Codes: L03.90 - Cellulitis, unspecified SNOMED: 236306042 (3) COPD (chronic obstructive pulmonary disease) ICD Codes: J44.9 - Chronic obstructive pulmonary disease, unspecified SNOMED: 76480229 (4) Morbid obesity ICD Codes: E66.01 - Morbid (severe) obesity due to excess calories SNOMED: 520429597 (5) Lumbar spondylosis ICD Codes: M47.816 - Spondylosis without myelopathy or radiculopathy, lumbar region SNOMED: 570214571 (6) Right heart failure ICD Codes: I50.810 - Right heart failure, unspecified SNOMED: 458910498 (7) ADALBERTO (obstructive sleep apnea) ICD Codes: G47.33 - Obstructive sleep apnea (adult) (pediatric) SNOMED: 74092294 (8) Abdominal pannus ICD Codes: E65 - Localized adiposity SNOMED: 5032303681008 (9) Seizures ICD Codes: R56.9 - Unspecified convulsions SNOMED: 24525651 (10) Cerebrovascular accident ICD Codes: I63.9 - Cerebral infarction, unspecified SNOMED: 464494963 (11) Peripheral edema ICD Codes: R60.9 - Edema, unspecified SNOMED: 770246423 (12) Abdominal wall cellulitis ICD Codes: L03.311 - Cellulitis of abdominal wall SNOMED: 97673057 (13) UTI (urinary tract infection) ICD Codes: N39.0 - Urinary tract infection, site not specified SNOMED: 43524154 (14) Uncontrolled seizures ICD Codes: R56.9 - Unspecified convulsions SNOMED: 51599810 Status: stable, progressing Assessment/Plan: pt diet wound care pain control cbc bmp am dc plan snf if clear Subjective Constitutional: Reports: weakness Allergies: Coded Allergies: ASPIRIN (Verified Allergy, Unknown, 07/14/18) KETOROLAC (Verified Allergy, Unknown, 07/14/18) PENICILLINS (Verified Allergy, Unknown, 12/23/18) tolerated Ancef on 08/2018 All Systems: reviewed and negative except above Subjective sleepy calm Objective Last 24 Hour Vital Signs Date Time Temp Pulse Resp B/P (MAP) Pulse Ox O2 Delivery O2 Flow Rate FiO2 03/28/19 07:07 97.9 03/28/19 04:00 97.9 81 20 109/56 (73) 97 03/27/19 21:00 Room Air Intake and Output 03/27/19 03/28/19 19:00 07:00 Intake Total 1040 ml 960 ml Output Total 1500 ml 900 ml Balance -460 ml 60 ml Intake Oral 1040 ml 960 ml Output Urine Total 1500 ml 900 ml # Bowel Movements 1 1 Height (Feet): 6 Height (Inches): 0.00 Weight (Pounds): 444 General Appearance: lethargic EENT: normal ENT inspection Neck: normal alignment Cardiovascular: normal peripheral pulses, normal rate, regular rhythm Respiratory/Chest: chest wall non-tender, lungs clear, normal breath sounds Abdomen: soft, distended Extremities: normal inspection Edema: 1+ Arm (L), 1+ Arm (R), 1+ Leg (L), 1+ Leg (R), 1+ Pedal (L), 1+ Pedal ( R), 1+ Generalized Neurologic: motor weakness Skin: normal pigmentation, warm/dry Ernesto Nicole DO Mar 28, 2019 08:56
[2019-03-28] MEDS: DULoxetine 30mg cap ORAL SCH (09:57)
[2019-03-28] MEDS: Levofloxacin 750mg tab ORAL SCH (09:57)
[2019-03-28] MEDS: Doxycycline Monohydrate 100mg ORAL SCH ×2 (09:57→21:00)
[2019-03-28 10:00] VITALS: BP 137/82
[2019-03-28] MEDS: Dakin's 0.125% Soln (Quarter Strength) 16oz TOPIC SCH (10:01)
--- NOTE | 2019-03-28 10:30 | Progress Note ---
DATE: 03/28/2019 SUBJECTIVE: This is a 53-year-old male with intractable pain, but he does have anxiety, depression worsened by stress of his medical illness. That is why his attending has requested daily psychiatric consultation. He is still depressed, anxious, and he is very agitated on interview. MENTAL STATUS EXAMINATION: This is a 53-year-old male. Appearance is disheveled. Attitude, irritable and agitated. Affect, guarded and restricted. Intellect poor. Mood, depressed and anxious. Motor activity, psychomotor agitation. Attention span is poor. Orientation x2. Speech is pressured. Thought process, disorganized and illogical. Insight and judgment is poor. DIAGNOSIS: Major depressive disorder, mild, recurrent, without psychotic features. PLAN: Treat him with Cymbalta 30 mg a day. A 20 minutes of cognitive behavioral therapy to help him identify automatic negative thoughts and help him those convert negative thoughts to more positive thoughts to reduce depression, anxiety, and mood lability. Chart reviewed. Discussed with staff. Seen and assessed at bedside. Laney Mcghee M.D. DR: GUTIERREZ JOB#: [id number] CC:
--- NOTE | 2019-03-28 11:31 | Surgery Progress Note ---
Surgery Progress Note Subjective Additional Comments no acute events refusing labs and vitals resting comfortable Objective Last 24 Hour Vital Signs Date Time Temp Pulse Resp B/P (MAP) Pulse Ox O2 Delivery O2 Flow Rate FiO2 03/28/19 10:00 82 137/82 03/28/19 09:00 Room Air 03/28/19 07:07 97.9 03/28/19 04:00 97.9 81 20 109/56 (73) 97 03/27/19 21:00 Room Air I&O Intake and Output 03/27/19 03/28/19 19:00 07:00 Intake Total 1040 ml 960 ml Output Total 1500 ml 900 ml Balance -460 ml 60 ml Intake Oral 1040 ml 960 ml Output Urine Total 1500 ml 900 ml # Bowel Movements 1 1 Dressing: other Wound: other Drains: other Cardiovascular: other Respiratory: other Abdomen: other Extremities: other Plan Problems: (1) Intractable pain (2) Cellulitis (3) Abdominal wall cellulitis Assessment & Plan: surgical wound with cellulitis and some openings. still with abd wall pannus cellulitis afebrile leukocytosis Patient is becoming more difficult with pain management as he is insistent on IV medications specifically Dilaudid only. He does not want to be transition to oral medications at this time. He uses this is an excuse to not allow for wound care and does not assist with caring for his wounds. In evaluating his wounds at bedside they have a foul odor and some areas are open while others are intact. Patient states that he is willing for therapy but when therapists come to help patient he refuses to participate in physical therapy. Unfortunately becoming a very difficult case as patient states he is motivated to improve and recover but this is only what he tells me and is not how he acts when the teams come to help and assist him with recovery. Furthermore his pain management becoming difficult as he states that he wants an increase in IV pain medications and he only wants them IV and specifically Dilaudid. Will discuss with medical teams to ensure best possible care tates that he had a hold of his medical record he is very upset that we have stated that narcotics are delaying his healing process. I have explained patient in detail that this is actually very true and that his dependence on narcotics and potential addiction is what is withholding him from a true and good recovery. During a long conversation in discussing his narcotic use history and where he is today as compared to where he was prior and his motivations and how they have changed patient is admitted that he does have a narcotic dependency and he believes he may have had one for some time. I explained patient that we will not be able to harm him and that our goals are to improve him and weaning his narcotic use is the first step in doing this. Overall patient's wounds are difficult but they are improving. His narcotic you should be decreasing unless he is forming a worsening addiction which we cannot conceivably help with. Patient seemed upset but understanding at the end the conversation. patients wound improving with dakins foul odor improved cont with dressing changes. -IV abx -diet as tolerated recommend strict diet but does not adhere to plan packing and dressing to abd wounds TID and prn saturation wash wounds daily with Dakins d/c planning as patient wants out of hospital soon thank you will follow with Gt Mata Mar 28, 2019 11:31
--- NOTE | 2019-03-28 14:43 | General Progress Note ---
Assessment/Plan Assessment/Plan: (1) Lumbar DDD (2) Lumbar Spondylosis (3) Lumbar Radiculopathy (4) Morbid Obesity (5) Right knee pain (6) Right knee OA h/o ORIF (7) Abdominal pain (8) Panniculus with panniculitis s/p panniculectomy Patient will be continued on Dilaudid and Fentanyl patch Patient refuses our care and due to this we will sign off from patient care at this time. If patient changes his mind please do not hesitate to reconsult. D/w Dr. Magaña and he concurred. Subjective Date patient seen: Mar 28, 2019 Time patient seen: 02:00 - pm Allergies: Coded Allergies: ASPIRIN (Verified Allergy, Unknown, 07/14/18) KETOROLAC (Verified Allergy, Unknown, 07/14/18) PENICILLINS (Verified Allergy, Unknown, 12/23/18) tolerated Ancef on 08/2018 Subjective REVIEW OF SYSTEMS: Denies rash, fever, chills, sweating, dizziness, drowsiness, blurred vision, sore throat, change in weight. No nausea, vomiting, diarrhea, or blood in the stool or urine. No bowel or bladder incontinence. No dysuria. He is complaining of low back pain and abdominal pain SUBJECTIVE: Patient is in bed and reports that he has been in severe pain and is requesting IV Dilaudid he only wants IV pain medication and claims that the tabs have not been working to relieve his pain. I explained to patient about opioid use, dependency and tolerance. As well as the use of Dilaudid IV in cases which it is used. I d/w him the option of adding another tab of opioid with the Dilaudid and he reduced. I also d/w him about the option for IVPB which he also refuses. Due to this he refuses our care and would no longer like us to continue to follow on his care. Objective Last 24 Hour Vital Signs Date Time Temp Pulse Resp B/P (MAP) Pulse Ox O2 Delivery O2 Flow Rate FiO2 03/28/19 10:00 82 137/82 03/28/19 10:00 18 137/82 (100) 98 03/28/19 09:00 Room Air 03/28/19 07:07 97.9 03/28/19 04:00 97.9 81 20 109/56 (73) 97 03/27/19 21:00 Room Air Intake and Output 03/27/19 03/28/19 18:59 06:59 Intake Total 1040 ml 960 ml Output Total 1500 ml 900 ml Balance -460 ml 60 ml Intake Oral 1040 ml 960 ml Output Urine Total 1500 ml 900 ml # Bowel Movements 1 1 Height (Feet): 6 Height (Inches): 0.00 Weight (Pounds): 444 Objective GENERAL: Alert, awake, and oriented x3. LUNGS: Decreased breath sounds bilaterally. HEART: S1 and S2, regular. ABDOMEN: Obese, bandages noted with tenderness to palpation. EXTREMITIES: No cyanosis. No clubbing. No edema. NEURO: No changes. Eliezer Nicole Mar 28, 2019 14:43
[2019-03-28] MEDS ORDERED: HYDROmorphone 4mg tab ORAL PRN (15:00)
--- NOTE | 2019-03-28 15:00 | NUR ---
NURSE NOTES: Patient requested for IV pain medications saying he is in severed pain and po dilaudid does not reduce pain . RN contacted Dr. Nicole and Eliezer FISCHER of Dr. Magaña but both of them denied to give him IV pain medication. Eliezer came in and talked to the patient with no new order. Patient requested to change attending physician, Mar made Dr. Nicole aware and Eliezer said he signed off from the case.
--- NOTE | 2019-03-28 15:25 | NUR ---
NURSE NOTES: Patient refused to take lasix, keppra and pain medication and stated that " I do not need them. Leave me alone." RN tried to explained to the patient about the med and importance of taking meds and patient started screaming and verbally abusive. Charge nurse talked to the patient and kiln head house operator made aware.
--- NOTE | 2019-03-28 16:00 | NUR ---
NURSE NOTES: RN let Dr. Nicole know that Dr. Magaña signed off from the case. Dr. Nicole contacted Dr. Magaña for pain meds, no new order.
--- NOTE | 2019-03-28 18:31 | NUR ---
NURSE NOTES: patient refused dressing change and v/s. RN explained the risks and benefits but refused x3.
--- NOTE | 2019-03-28 19:13 | NUR ---
HAND-OFF: Report given to
--- NOTE | 2019-03-28 19:54 | NUR ---
NURSE NOTES: Received patient awake,alert,verbal,resting in bed,moved his bowel.
[2019-03-28 20:00] VITALS: BP 137/78
[2019-03-29] MEDS: HYDROmorphone 4mg tab ORAL PRN ×4 (04:03→21:30)
--- NOTE | 2019-03-29 07:23 | NUR ---
HAND-OFF: Report given to Janki Chang RN.
--- NOTE | 2019-03-29 08:05 | NUR ---
NURSE NOTES: received pt in bed, pt is in bedrest, asleep, no sign of pain or discomfort. LAC IV access in place, saline locked. Pires catheter in place. Call light within easy reach, siderails up x2, refuses padding for seizure precautions. bed locked at the lowest position possible. Will continue to monitor pt and follow up with the plan of care.
[2019-03-29] MEDS: Dakin's 0.125% Soln (Quarter Strength) 16oz TOPIC SCH (09:00)
--- NOTE | 2019-03-29 09:07 | General Progress Note ---
Assessment/Plan Problem List: (1) Intractable pain ICD Codes: R52 - Pain, unspecified SNOMED: 59191974 (2) Cellulitis ICD Codes: L03.90 - Cellulitis, unspecified SNOMED: 492530500 (3) COPD (chronic obstructive pulmonary disease) ICD Codes: J44.9 - Chronic obstructive pulmonary disease, unspecified SNOMED: 36859907 (4) Morbid obesity ICD Codes: E66.01 - Morbid (severe) obesity due to excess calories SNOMED: 670202737 (5) Lumbar spondylosis ICD Codes: M47.816 - Spondylosis without myelopathy or radiculopathy, lumbar region SNOMED: 059783236 (6) Right heart failure ICD Codes: I50.810 - Right heart failure, unspecified SNOMED: 514681143 (7) ADALBERTO (obstructive sleep apnea) ICD Codes: G47.33 - Obstructive sleep apnea (adult) (pediatric) SNOMED: 73229755 (8) Abdominal pannus ICD Codes: E65 - Localized adiposity SNOMED: 3344879211443 (9) Seizures ICD Codes: R56.9 - Unspecified convulsions SNOMED: 79600603 (10) Cerebrovascular accident ICD Codes: I63.9 - Cerebral infarction, unspecified SNOMED: 627742497 (11) Peripheral edema ICD Codes: R60.9 - Edema, unspecified SNOMED: 095360418 (12) Abdominal wall cellulitis ICD Codes: L03.311 - Cellulitis of abdominal wall SNOMED: 72741411 (13) UTI (urinary tract infection) ICD Codes: N39.0 - Urinary tract infection, site not specified SNOMED: 49103629 (14) Uncontrolled seizures ICD Codes: R56.9 - Unspecified convulsions SNOMED: 39226905 Status: stable, progressing Assessment/Plan: pt diet wound care pain control cbc bmp am ltach eval Subjective Constitutional: Reports: weakness Allergies: Coded Allergies: ASPIRIN (Verified Allergy, Unknown, 07/14/18) KETOROLAC (Verified Allergy, Unknown, 07/14/18) PENICILLINS (Verified Allergy, Unknown, 12/23/18) tolerated Ancef on 08/2018 All Systems: reviewed and negative except above Subjective sleepy calm Objective Last 24 Hour Vital Signs Date Time Temp Pulse Resp B/P (MAP) Pulse Ox O2 Delivery O2 Flow Rate FiO2 03/29/19 04:34 98.7 03/28/19 20:29 Room Air 03/28/19 20:00 98.7 86 18 137/78 (97) 95 03/28/19 10:00 82 137/82 03/28/19 10:00 18 137/82 (100) 98 Intake and Output 03/28/19 03/29/19 19:00 07:00 Intake Total 300 ml 840 ml Output Total 1400 ml Balance 300 ml -560 ml Intake Oral 300 ml 840 ml Output Urine Total 1400 ml # Bowel Movements 1 Height (Feet): 6 Height (Inches): 0.00 Weight (Pounds): 444 General Appearance: lethargic EENT: normal ENT inspection Neck: normal alignment Cardiovascular: normal peripheral pulses, normal rate, regular rhythm Respiratory/Chest: chest wall non-tender, lungs clear, normal breath sounds Abdomen: soft, distended Extremities: normal inspection Edema: 1+ Arm (L), 1+ Arm (R), 1+ Leg (L), 1+ Leg (R), 1+ Pedal (L), 1+ Pedal ( R), 1+ Generalized Neurologic: motor weakness Skin: normal pigmentation, warm/dry Ernesto Nicole DO Mar 29, 2019 09:07
[2019-03-29] MEDS: Doxycycline Monohydrate 100mg ORAL SCH ×2 (09:12→21:29)
[2019-03-29] MEDS: DULoxetine 30mg cap ORAL SCH (09:12)
[2019-03-29] MEDS: Levofloxacin 750mg tab ORAL SCH (09:12)
--- NOTE | 2019-03-29 13:34 | Surgery Progress Note ---
Surgery Progress Note Subjective Additional Comments no acute events is still upset and does not want to talk much no complaints no n/v/f/c eating a lot wounds stable Objective Last 24 Hour Vital Signs Date Time Temp Pulse Resp B/P (MAP) Pulse Ox O2 Delivery O2 Flow Rate FiO2 03/29/19 09:43 98.7 03/29/19 09:00 Room Air 03/28/19 20:29 Room Air 03/28/19 20:00 98.7 86 18 137/78 (97) 95 I&O Intake and Output 03/28/19 03/29/19 19:00 07:00 Intake Total 300 ml 840 ml Output Total 1400 ml Balance 300 ml -560 ml Intake Oral 300 ml 840 ml Output Urine Total 1400 ml # Bowel Movements 1 Dressing: saturated Wound: other Drains: other Cardiovascular: RSR Respiratory: clear Abdomen: soft, present bowel sounds, other, non-distended Extremities: edema, no cyanosis Plan Problems: (1) Intractable pain Assessment & Plan: appreciate pain management input (2) Cellulitis (3) Abdominal wall cellulitis Assessment & Plan: surgical wound with cellulitis and some openings. still with abd wall pannus cellulitis afebrile leukocytosis Patient is becoming more difficult with pain management as he is insistent on IV medications specifically Dilaudid only. He does not want to be transition to oral medications at this time. He uses this is an excuse to not allow for wound care and does not assist with caring for his wounds. In evaluating his wounds at bedside they have a foul odor and some areas are open while others are intact. Patient states that he is willing for therapy but when therapists come to help patient he refuses to participate in physical therapy. Unfortunately becoming a very difficult case as patient states he is motivated to improve and recover but this is only what he tells me and is not how he acts when the teams come to help and assist him with recovery. Furthermore his pain management becoming difficult as he states that he wants an increase in IV pain medications and he only wants them IV and specifically Dilaudid. Will discuss with medical teams to ensure best possible care tates that he had a hold of his medical record he is very upset that we have stated that narcotics are delaying his healing process. I have explained patient in detail that this is actually very true and that his dependence on narcotics and potential addiction is what is withholding him from a true and good recovery. During a long conversation in discussing his narcotic use history and where he is today as compared to where he was prior and his motivations and how they have changed patient is admitted that he does have a narcotic dependency and he believes he may have had one for some time. I explained patient that we will not be able to harm him and that our goals are to improve him and weaning his narcotic use is the first step in doing this. Overall patient's wounds are difficult but they are improving. His narcotic you should be decreasing unless he is forming a worsening addiction which we cannot conceivably help with. Patient seemed upset but understanding at the end the conversation. patients wound improving with dakins foul odor improved cont with dressing changes. -IV abx -diet as tolerated recommend strict diet but does not adhere to plan packing and dressing to abd wounds TID and prn saturation wash wounds daily with Dakins d/c planning as patient wants out of hospital soon thank you will follow with Gt Mata Mar 29, 2019 13:34
[2019-03-29] MEDS: fentaNYL Destruction MISC SCH (15:18)
[2019-03-29 16:00] VITALS: BP 132/85
--- NOTE | 2019-03-29 17:01 | Infectious Diseases Prog Note ---
Assessment/Plan Assessment/Plan Assessment: Surgical site infection; improving -03/05 wound cx : S.aureus, diptheroids -03/04 wound cx MRSA (S tetracycline, bactrim, Vancomycin),K. pna (R amp; otherwise S) 02/01 SP Panniculectomy Afebrile Mild leukocytosis Recent hx of B/l Leg cellulitis and panniculitis 12/2018 - in the setting of chronic venous stasis, s/p Rx Recent seizure episode 11/2018 -had L side weakness and spasticity CVA HTN bipolar disorder w/ psychotic features tobacco abuse anxiety disorder chronic pain CHF seizure disorder COPD morbid obesity Dm2 HTN SNF resident Plan: -Continue PO Doxycycline #18(abx d #) and Levaquin #16 (abx d #) for SSI -03/17 SP DOxycycline #8, Levaquin #8 -03/10 SP IV Vancomycin #8, Ceftriaxone #5 -03/06 SP Cefepime #4 -02/08 SP IV Vancomycin # -02/04 SP Aztreonam #4 -/ SP Fluconazole #5 - 01/07/19 SP IV Dapto d# 14 - 01/06/19 S/P Levofloxacin #7 - 12/25/18 sp Bactrim #4 and IV Ancef #3 for cellulitis -f/u cx -Monitor CBC/CMP, temperatures -Sx f/u -wound care per surgical team -Patient very difficult to manage; refusing wound care dressings, examination, blood draws and oral antibiotics. Becoming angry and demanding IV pain medications. Subjective Allergies: Coded Allergies: ASPIRIN (Verified Allergy, Unknown, 07/14/18) KETOROLAC (Verified Allergy, Unknown, 07/14/18) PENICILLINS (Verified Allergy, Unknown, 12/23/18) tolerated Ancef on 08/2018 Subjective afebrile no recent lab Objective Vital Signs Last 24 Hour Vital Signs Date Time Temp Pulse Resp B/P (MAP) Pulse Ox O2 Delivery O2 Flow Rate FiO2 03/29/19 16:00 97.4 82 19 132/85 (101) 95 03/29/19 15:47 98.7 03/29/19 14:54 98.7 03/29/19 09:00 Room Air 03/28/19 20:29 Room Air 03/28/19 20:00 98.7 86 18 137/78 (97) 95 Height (Feet): 6 Height (Inches): 0.00 Weight (Pounds): 444 Objective General appearance: alert, cooperative, no distress, appears stated age Head: Normocephalic, without obvious abnormality, atraumatic Eyes: conjunctivae/corneas clear. PERRL, EOM's intact. Fundi benign Throat: Lips, mucosa, and tongue normal. Teeth and gums normal Neck: supple, symmetrical, trachea midline, no adenopathy, thyroid: not enlarged, symmetric, no tenderness/mass/nodules, no carotid bruit and no JVD Lungs: clear to auscultation bilaterally Heart: regular rate and rhythm, S1, S2 normal, no murmur, click, rub or gallop Abdomen: soft, non-tender. Bowel sounds normal. No masses, no organomegaly; surgical incision with some areas of opening and erythema Extremities: extremities normal, atraumatic, no cyanosis or edema Pulses: 2+ and symmetric Skin: Skin color, texture, turgor normal. No rashes or lesions Neurologic: Grossly normal Current Medications Medications (Trade) Dose Ordered Sig/Luis Route PRN Reason Start Time Stop Time Status Last Admin Dose Admin Acetaminophen (Tylenol) 650 mg Q4H PRN ORAL Mild Pain/Temp > 100.5 03/18/19 04:30 04/17/19 04:29 Amlodipine Besylate (Norvasc) 5 mg DAILY ORAL 03/18/19 09:00 04/17/19 08:59 03/28/19 10:00 Calcium Carbonate (Tums) 1,000 mg Q4H PRN ORAL indigestion 03/25/19 10:30 04/24/19 10:29 03/25/19 11:15 Doxycycline Monohydrate (Doxycycline Monohydrate) 100 mg EVERY 12 HOURS ORAL 03/27/19 22:00 04/03/19 21:59 03/29/19 09:12 Duloxetine HCl (Cymbalta) 30 mg DAILY ORAL 03/18/19 09:00 04/17/19 08:59 03/29/19 09:12 Fentanyl (Duragesic) 1 patch Q48H TDERMAL 03/23/19 16:00 03/30/19 15:59 03/29/19 15:17 Furosemide (Lasix) 10 mg EVERY 8 HOURS ORAL 03/18/19 06:00 04/17/19 05:59 03/29/19 05:54 Hydromorphone HCl (Dilaudid) 4 mg Q4H PRN ORAL Severe Pain (Pain Scale 7-10) 03/28/19 15:00 04/04/19 14:59 03/29/19 14:24 Levetiracetam (Keppra) 1,000 mg EVERY 8 HOURS ORAL 03/18/19 06:00 04/17/19 05:59 03/29/19 05:54 Levofloxacin (Levaquin) 750 mg DAILY ORAL 03/28/19 09:00 04/04/19 08:59 03/29/19 09:12 Miscellaneous Medication (fentaNYL Destruction) 1 ea Q48H MISC 03/23/19 16:00 04/22/19 15:59 03/29/19 15:18 Naloxone HCl (Narcan) 0.1 mg PRN IV Sedation scale 3 or 4 03/18/19 04:30 Ondansetron HCl (Zofran) 4 mg Q4H PRN ORAL Nausea & Vomiting 03/25/19 10:30 04/24/19 10:29 03/26/19 17:04 Ondansetron HCl (Zofran) 4 mg Q6H PRN IVP Nausea & Vomiting 03/25/19 10:30 04/17/19 04:29 Polyethylene Glycol (Miralax) 17 gm DAILY PRN ORAL Constipation 03/18/19 04:30 04/17/19 04:29 Sodium Hypochlorite (Dakin's Quarter Strength) 1 applic DAILY TOPIC 03/23/19 15:00 04/22/19 14:59 03/28/19 10:01 Alexa Patterson M.D. Mar 29, 2019 17:01
--- NOTE | 2019-03-29 19:46 | NUR ---
HAND-OFF: Report given to MICAELA Muller.
--- NOTE | 2019-03-29 19:47 | NUR ---
NURSE NOTES: Received patient in bed, awake, alert, oriented, able to make his needs known, IV site is clean dry and intact. No acute distress noted or reported. Call light is within reach, bed is in low position, locked and alarm is on. Will continue to monitor for comfort and safety.
[2019-03-29 20:00] VITALS: BP 128/78
--- NOTE | 2019-03-29 20:15 | Progress Note ---
DATE: 03/29/2019 SUBJECTIVE: This is a 53-year-old male with intractable pain. He continues to have some confusion, some disorganized thought process. He has got feelings of helplessness, hopelessness, low energy, poor appetite, loss of interest in activities but because of specific he has intractable pain, so my plan to treat him with medication regimen consisting of . MENTAL STATUS EXAMINATION: This is a 53-year-old male. Appearance is disheveled. Attitude, irritable and agitated. Affect, guarded and restricted. Intellect poor. Mood, depressed and anxious. Motor activity, psychomotor agitation. Attention span is poor. Orientation x2. Speech is pressured. Thought process disorganized and illogical. Thought content, denies auditory hallucinations or delusions. Insight and judgment is fair. DIAGNOSIS: Major depressive disorder, mild, recurrent without psychotic features. PLAN: Treat him with Cymbalta 30 mg a day. Also provide him with 20 minutes of cognitive therapy to help him identify his automatic negative thoughts, help him convert his negative thoughts to more positive thoughts to reduce depression, anxiety, suicidality. Chart reviewed and discussed with staff. Seen and assessed in bedside. Laney Mcghee M.D. DR: Doretha JOB#: [id number] CC:
[2019-03-30] VITALS: BP 119/78
[2019-03-30] MEDS: HYDROmorphone 4mg tab ORAL PRN ×5 (01:56→18:05)
[2019-03-30 04:00] VITALS: BP 127/67
--- NOTE | 2019-03-30 07:11 | NUR ---
HAND-OFF: Report given to Forrest HINOJOSA.
[2019-03-30 08:00] VITALS: BP 124/77
--- NOTE | 2019-03-30 08:00 | NUR ---
NURSE NOTES: PT REFUSED PADDING ON SIDE-RAILS FOR SEIZURE PRECAUTIONS. PT EDUCATED ON SAFETY DURING SEIZURES. PT CONTINUED TO REFUSE.
[2019-03-30] MEDS: Doxycycline Monohydrate 100mg ORAL SCH (09:13)
[2019-03-30] MEDS: Levofloxacin 750mg tab ORAL SCH (09:13)
[2019-03-30] MEDS: DULoxetine 30mg cap ORAL SCH (09:13)
[2019-03-30] MEDS: Dakin's 0.125% Soln (Quarter Strength) 16oz TOPIC SCH (09:14)
--- NOTE | 2019-03-30 10:21 | NUR ---
NURSE NOTES: PT AXOX4, CALM, RESTING IN BED. PT STATES HE DOES NOT WANT DRESSING CHANGE AT THIS TIME. STATES HIS PAIN IS TOO EXTREME AND DOESN'T WANT NURSE TO BOTHER HIM. RN EDUCATED PER ORDERS, DRESSING CHANGES TO BE DONE THREE TIMES A DAY. MORGAN DRAINING CLEAR YELLOW URINE. RN EMPTIED MORGAN BAG, 1600CC. CALL LIGHT WITHIN REACH. RN WILL OFFER DRESSING CHANGE AGAIN WHEN PT IS MORE RECEPTIVE. WILL CONTINUE TO MONITOR.
[2019-03-30 11:59] VITALS: BP 114/71
--- NOTE | 2019-03-30 12:37 | Infectious Diseases Prog Note ---
Assessment/Plan Assessment/Plan Assessment: Surgical site infection; improving -03/05 wound cx : S.aureus, diptheroids -03/04 wound cx MRSA (S tetracycline, bactrim, Vancomycin),K. pna (R amp; otherwise S) 02/01 SP Panniculectomy Afebrile Mild leukocytosis Recent hx of B/l Leg cellulitis and panniculitis 12/2018 - in the setting of chronic venous stasis, s/p Rx Recent seizure episode 11/2018 -had L side weakness and spasticity CVA HTN bipolar disorder w/ psychotic features tobacco abuse anxiety disorder chronic pain CHF seizure disorder COPD morbid obesity Dm2 HTN SNF resident Plan: -Continue PO Doxycycline #19(abx d #) and Levaquin #17 (abx d #) for SSI -03/17 SP DOxycycline #8, Levaquin #8 -03/10 SP IV Vancomycin #8, Ceftriaxone #5 -03/06 SP Cefepime #4 -02/08 SP IV Vancomycin # -02/04 SP Aztreonam #4 -/ SP Fluconazole #5 - 01/07/19 SP IV Dapto d# 14 - 01/06/19 S/P Levofloxacin #7 - 12/25/18 sp Bactrim #4 and IV Ancef #3 for cellulitis -f/u cx -Monitor CBC/CMP, temperatures -Sx f/u -wound care per surgical team -Patient very difficult to manage; refusing wound care dressings, examination, blood draws and oral antibiotics. Becoming angry and demanding IV pain medications. Subjective Allergies: Coded Allergies: ASPIRIN (Verified Allergy, Unknown, 07/14/18) KETOROLAC (Verified Allergy, Unknown, 07/14/18) PENICILLINS (Verified Allergy, Unknown, 12/23/18) tolerated Ancef on 08/2018 Subjective afebrile no recent lab Objective Vital Signs Last 24 Hour Vital Signs Date Time Temp Pulse Resp B/P (MAP) Pulse Ox O2 Delivery O2 Flow Rate FiO2 03/30/19 11:59 98.3 80 19 114/71 (85) 97 03/30/19 09:14 80 124/77 03/30/19 09:00 Room Air 03/30/19 08:00 98.3 80 18 124/77 (93) 99 03/30/19 04:00 98.7 87 18 127/67 (87) 03/30/19 00:00 97.8 78 18 119/78 (92) 03/29/19 22:07 Room Air 03/29/19 20:00 98.7 78 18 128/78 (95) 03/29/19 16:00 97.4 82 19 132/85 (101) 95 03/29/19 15:47 98.7 03/29/19 14:54 98.7 Height (Feet): 6 Height (Inches): 0.00 Weight (Pounds): 444 Objective General appearance: alert, cooperative, no distress, appears stated age Head: Normocephalic, without obvious abnormality, atraumatic Eyes: conjunctivae/corneas clear. PERRL, EOM's intact. Fundi benign Throat: Lips, mucosa, and tongue normal. Teeth and gums normal Neck: supple, symmetrical, trachea midline, no adenopathy, thyroid: not enlarged, symmetric, no tenderness/mass/nodules, no carotid bruit and no JVD Lungs: clear to auscultation bilaterally Heart: regular rate and rhythm, S1, S2 normal, no murmur, click, rub or gallop Abdomen: soft, non-tender. Bowel sounds normal. No masses, no organomegaly; surgical incision with some areas of opening and erythema Extremities: extremities normal, atraumatic, no cyanosis or edema Pulses: 2+ and symmetric Skin: Skin color, texture, turgor normal. No rashes or lesions Neurologic: Grossly normal Current Medications Medications (Trade) Dose Ordered Sig/Luis Route PRN Reason Start Time Stop Time Status Last Admin Dose Admin Acetaminophen (Tylenol) 650 mg Q4H PRN ORAL Mild Pain/Temp > 100.5 03/18/19 04:30 04/17/19 04:29 Amlodipine Besylate (Norvasc) 5 mg DAILY ORAL 03/18/19 09:00 04/17/19 08:59 03/30/19 09:14 Calcium Carbonate (Tums) 1,000 mg Q4H PRN ORAL indigestion 03/25/19 10:30 04/24/19 10:29 03/25/19 11:15 Doxycycline Monohydrate (Doxycycline Monohydrate) 100 mg EVERY 12 HOURS ORAL 03/27/19 22:00 04/03/19 21:59 03/30/19 09:13 Duloxetine HCl (Cymbalta) 30 mg DAILY ORAL 03/18/19 09:00 04/17/19 08:59 03/30/19 09:13 Fentanyl (Duragesic) 1 patch Q48H TDERMAL 03/23/19 16:00 03/30/19 15:59 03/29/19 15:17 Furosemide (Lasix) 10 mg EVERY 8 HOURS ORAL 03/18/19 06:00 04/17/19 05:59 03/30/19 06:01 Hydromorphone HCl (Dilaudid) 4 mg Q4H PRN ORAL Severe Pain (Pain Scale 7-10) 03/28/19 15:00 04/04/19 14:59 03/30/19 10:07 Levetiracetam (Keppra) 1,000 mg EVERY 8 HOURS ORAL 03/18/19 06:00 04/17/19 05:59 03/30/19 06:00 Levofloxacin (Levaquin) 750 mg DAILY ORAL 03/28/19 09:00 04/04/19 08:59 03/30/19 09:13 Miscellaneous Medication (fentaNYL Destruction) 1 ea Q48H MISC 03/23/19 16:00 04/22/19 15:59 03/29/19 15:18 Naloxone HCl (Narcan) 0.1 mg PRN IV Sedation scale 3 or 4 03/18/19 04:30 Ondansetron HCl (Zofran) 4 mg Q4H PRN ORAL Nausea & Vomiting 03/25/19 10:30 04/24/19 10:29 03/26/19 17:04 Ondansetron HCl (Zofran) 4 mg Q6H PRN IVP Nausea & Vomiting 03/25/19 10:30 04/17/19 04:29 Polyethylene Glycol (Miralax) 17 gm DAILY PRN ORAL Constipation 03/18/19 04:30 04/17/19 04:29 Sodium Hypochlorite (Dakin's Quarter Strength) 1 applic DAILY TOPIC 03/23/19 15:00 04/22/19 14:59 03/30/19 09:14 Alexa Patterson M.D. Mar 30, 2019 12:37
--- NOTE | 2019-03-30 12:56 | NUR ---
NURSE NOTES: DR JENKINS AT BEDSIDE AND MADE AWARE PT HAS BEEN REFUSING DRESSING CHANGES. DR JENKINS EDUCATED PT ON IMPORTANCE OF DRESSING CHANGES, AND CAN CHANGE FREQUENCY TO ONCE A DAY. PT AGREES TO WOUND CARE LATER. WILL CONTINUE TO MONITOR.
--- NOTE | 2019-03-30 13:02 | Pulmonology Progress Note ---
Assessment/Plan Problems: (1) Abdominal wall cellulitis (2) ADALBERTO (obstructive sleep apnea) (3) Status post panniculectomy (4) COPD (chronic obstructive pulmonary disease) (5) Seizures (6) Intractable pain (7) Cerebrovascular accident (8) Lumbar spondylosis (9) Morbid obesity Assessment/Plan wound care iv abx respiratory treatment check electrolytes d/w Dr. Roberts, who thinks pt would benefit from IV dilaudid before physical therapy. Subjective ROS Limited/Unobtainable: No Interval Events: pt requested me to start seeing him again Allergies: Coded Allergies: ASPIRIN (Verified Allergy, Unknown, 07/14/18) KETOROLAC (Verified Allergy, Unknown, 07/14/18) PENICILLINS (Verified Allergy, Unknown, 12/23/18) tolerated Ancef on 08/2018 Objective Last 24 Hour Vital Signs Date Time Temp Pulse Resp B/P (MAP) Pulse Ox O2 Delivery O2 Flow Rate FiO2 03/30/19 11:59 98.3 80 19 114/71 (85) 97 03/30/19 09:14 80 124/77 03/30/19 09:00 Room Air 03/30/19 08:00 98.3 80 18 124/77 (93) 99 03/30/19 04:00 98.7 87 18 127/67 (87) 03/30/19 00:00 97.8 78 18 119/78 (92) 03/29/19 22:07 Room Air 03/29/19 20:00 98.7 78 18 128/78 (95) 03/29/19 16:00 97.4 82 19 132/85 (101) 95 03/29/19 15:47 98.7 03/29/19 14:54 98.7 Intake and Output 03/29/19 03/30/19 19:00 07:00 Intake Total 600 ml Output Total 1300 ml 1000 ml Balance -700 ml -1000 ml Intake Oral 600 ml Output Urine Total 1300 ml 1000 ml # Voids 2 # Bowel Movements 1 Objective General Appearance: WD/WN HEENT: normocephalic, atraumatic Respiratory/Chest: chest wall non-tender, lungs clear Cardiovascular: normal peripheral pulses, normal rate Abdomen: normal bowel sounds, soft, non tender Genitourinary: normal external genitalia Extremities: no clubbing Skin: no rash, no ulcers, clean dressing in lower abdomen Neurologic/Psychiatric: nurse 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 II-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 grossly normal Current Medications Medications (Trade) Dose Ordered Sig/Luis Route PRN Reason Start Time Stop Time Status Last Admin Dose Admin Acetaminophen (Tylenol) 650 mg Q4H PRN ORAL Mild Pain/Temp > 100.5 03/18/19 04:30 04/17/19 04:29 Amlodipine Besylate (Norvasc) 5 mg DAILY ORAL 03/18/19 09:00 04/17/19 08:59 03/30/19 09:14 Calcium Carbonate (Tums) 1,000 mg Q4H PRN ORAL indigestion 03/25/19 10:30 04/24/19 10:29 03/25/19 11:15 Doxycycline Monohydrate (Doxycycline Monohydrate) 100 mg EVERY 12 HOURS ORAL 03/27/19 22:00 04/03/19 21:59 03/30/19 09:13 Duloxetine HCl (Cymbalta) 30 mg DAILY ORAL 03/18/19 09:00 04/17/19 08:59 03/30/19 09:13 Fentanyl (Duragesic) 1 patch Q48H TDERMAL 03/23/19 16:00 03/30/19 15:59 03/29/19 15:17 Furosemide (Lasix) 10 mg EVERY 8 HOURS ORAL 03/18/19 06:00 04/17/19 05:59 03/30/19 06:01 Hydromorphone HCl (Dilaudid) 4 mg Q4H PRN ORAL Severe Pain (Pain Scale 7-10) 03/28/19 15:00 04/04/19 14:59 03/30/19 10:07 Levetiracetam (Keppra) 1,000 mg EVERY 8 HOURS ORAL 03/18/19 06:00 04/17/19 05:59 03/30/19 06:00 Levofloxacin (Levaquin) 750 mg DAILY ORAL 03/28/19 09:00 04/04/19 08:59 03/30/19 09:13 Miscellaneous Medication (fentaNYL Destruction) 1 ea Q48H MISC 03/23/19 16:00 04/22/19 15:59 03/29/19 15:18 Naloxone HCl (Narcan) 0.1 mg PRN IV Sedation scale 3 or 4 03/18/19 04:30 Ondansetron HCl (Zofran) 4 mg Q4H PRN ORAL Nausea & Vomiting 03/25/19 10:30 04/24/19 10:29 03/26/19 17:04 Ondansetron HCl (Zofran) 4 mg Q6H PRN IVP Nausea & Vomiting 03/25/19 10:30 04/17/19 04:29 Polyethylene Glycol (Miralax) 17 gm DAILY PRN ORAL Constipation 03/18/19 04:30 04/17/19 04:29 Sodium Hypochlorite (Dakin's Quarter Strength) 1 applic DAILY TOPIC 03/23/19 15:00 04/22/19 14:59 03/30/19 09:14 Bill Dixon MD Mar 30, 2019 13:02
--- NOTE | 2019-03-30 13:14 | General Progress Note ---
Assessment/Plan Problem List: (1) Intractable pain ICD Codes: R52 - Pain, unspecified SNOMED: 42136759 (2) Cellulitis ICD Codes: L03.90 - Cellulitis, unspecified SNOMED: 250704807 (3) COPD (chronic obstructive pulmonary disease) ICD Codes: J44.9 - Chronic obstructive pulmonary disease, unspecified SNOMED: 39664315 (4) Morbid obesity ICD Codes: E66.01 - Morbid (severe) obesity due to excess calories SNOMED: 420236038 (5) Lumbar spondylosis ICD Codes: M47.816 - Spondylosis without myelopathy or radiculopathy, lumbar region SNOMED: 794336823 (6) Right heart failure ICD Codes: I50.810 - Right heart failure, unspecified SNOMED: 163585368 (7) ADALBERTO (obstructive sleep apnea) ICD Codes: G47.33 - Obstructive sleep apnea (adult) (pediatric) SNOMED: 83065630 (8) Abdominal pannus ICD Codes: E65 - Localized adiposity SNOMED: 8845920210274 (9) Seizures ICD Codes: R56.9 - Unspecified convulsions SNOMED: 51749924 (10) Cerebrovascular accident ICD Codes: I63.9 - Cerebral infarction, unspecified SNOMED: 018585054 (11) Peripheral edema ICD Codes: R60.9 - Edema, unspecified SNOMED: 520671597 (12) Abdominal wall cellulitis ICD Codes: L03.311 - Cellulitis of abdominal wall SNOMED: 76265352 (13) UTI (urinary tract infection) ICD Codes: N39.0 - Urinary tract infection, site not specified SNOMED: 72600749 (14) Uncontrolled seizures ICD Codes: R56.9 - Unspecified convulsions SNOMED: 33786991 Status: stable, progressing Assessment/Plan: pt diet wound care pain control cbc bmp am aru eval Subjective Constitutional: Reports: weakness Allergies: Coded Allergies: ASPIRIN (Verified Allergy, Unknown, 07/14/18) KETOROLAC (Verified Allergy, Unknown, 07/14/18) PENICILLINS (Verified Allergy, Unknown, 12/23/18) tolerated Ancef on 08/2018 All Systems: reviewed and negative except above Subjective anxious c/o some general pain Objective Last 24 Hour Vital Signs Date Time Temp Pulse Resp B/P (MAP) Pulse Ox O2 Delivery O2 Flow Rate FiO2 9/19 11:59 98.3 80 19 114/71 (85) 97 03/30/19 09:14 80 124/77 03/30/19 09:00 Room Air 03/30/19 08:00 98.3 80 18 124/77 (93) 99 03/30/19 04:00 98.7 87 18 127/67 (87) 03/30/19 00:00 97.8 78 18 119/78 (92) 03/29/19 22:07 Room Air 03/29/19 20:00 98.7 78 18 128/78 (95) 03/29/19 16:00 97.4 82 19 132/85 (101) 95 03/29/19 15:47 98.7 03/29/19 14:54 98.7 Intake and Output 03/29/19 03/30/19 19:00 07:00 Intake Total 600 ml Output Total 1300 ml 1000 ml Balance -700 ml -1000 ml Intake Oral 600 ml Output Urine Total 1300 ml 1000 ml # Voids 2 # Bowel Movements 1 Height (Feet): 6 Height (Inches): 0.00 Weight (Pounds): 444 General Appearance: alert EENT: normal ENT inspection Neck: normal alignment Cardiovascular: normal peripheral pulses, normal rate, regular rhythm Respiratory/Chest: chest wall non-tender, lungs clear, normal breath sounds Abdomen: soft Extremities: normal inspection Edema: 1+ Arm (L), 1+ Arm (R), 1+ Leg (L), 1+ Leg (R), 1+ Pedal (L), 1+ Pedal ( R), 1+ Generalized Edema: trace edema Neurologic: responsive, motor weakness Skin: normal pigmentation, warm/dry Ernesto Nicole DO Mar 30, 2019 13:14
--- NOTE | 2019-03-30 13:53 | NUR ---
RD ASSESSMENT & RECOMMENDATIONS SEE CARE ACTIVITY FOR COMPLETE ASSESSMENT DAILY ESTIMATED NEEDS: Needs based on obesity, pulmonary, wound/ 115kg abw 15-18 kcals/kg 1626-0954 total kcals 1.25-1.5 g protein/kg 143-172 g total protein 15-18ml/kcal mL/kg 9178-1845 total fluid mLs NUTRITION DIAGNOSIS: Decreased sodium, fat, and calorie intake needs R/T cardiac h/o and morbid obesity as evidenced by h/o CHF, CVA, w/ BMI>60, @ 267% of [place] Body Weight and poor compliance w/ dietary advice and education. CURRENT DIET:REGULAR PO DIET RECOMMENDATIONS: CARDIAC + CCHO LOW for calorie control ADDITIONAL RECOMMENDATIONS: * Standing wt as able for accurate CBW (too heavy for bedscale) * Rec diet change as above to help w/ wt loss * Continue to attempt to educate pt on healthy wt loss h/o getting easily upset during education pt refused diet ed on 03/23 * Surgical site wound healing: rec MVI x 1, Vit C 250mg QD + Rory 1pkt BID
--- NOTE | 2019-03-30 15:48 | NUR ---
NURSE NOTES: RN CHANGED DRESSINGS ON LEFT AND RIGHT ABDOMEN. WOUNDS CLEANSED WITH NS, RN APPLIED PACKING WITH GAUZE WITH 1/4 STRENGTH DAKIN'S SOLUTION TO OPEN WOUND ON RIGHT ABDOMEN AND ON 2 WOUNDS ON LEFT ABDOMEN. PT TOLERATED WELL.
[2019-03-30 15:50] VITALS: BP 129/77
--- NOTE | 2019-03-30 16:39 | NUR ---
NURSE NOTES: REP FROM [facility] AT BEDSIDE WITH PT.
--- NOTE | 2019-03-30 17:00 | Progress Note ---
DATE: 03/30/2019 SUBJECTIVE: This is a 53-year-old male patient with intractable pain, but he has altered mental status, confusion with decline in cognition below his baseline, high levels of anxiety and depression. MENTAL STATUS EXAMINATION: A 53-year-old male. Appearance is disheveled. Attitude, irritable and agitated. Affect, guarded and restricted. Intellect poor. Mood, depressed and anxious. Insight and judgment is poor. DIAGNOSIS: Major depressive disorder, mild, recurrent. PLAN: Treat him with Cymbalta 30 mg daily. A 20 minutes of cognitive behavioral therapy to help him identify his automatic negative thoughts and convert negative thoughts to more positive thoughts to reduce depression, anxiety, mood lability. Chart reviewed. Discussed with staff. Seen and assessed in room. Laney Mcghee M.D. DR: JONATHAN JOB#: [id number] CC:
--- NOTE | 2019-03-30 18:43 | Surgery Progress Note ---
Surgery Progress Note Subjective Additional Comments no acute events resting comfortable Objective Last 24 Hour Vital Signs Date Time Temp Pulse Resp B/P (MAP) Pulse Ox O2 Delivery O2 Flow Rate FiO2 03/30/19 15:50 98.4 72 19 129/77 (94) 96 03/30/19 11:59 98.3 80 19 114/71 (85) 97 03/30/19 09:14 80 124/77 03/30/19 09:00 Room Air 03/30/19 08:00 98.3 80 18 124/77 (93) 99 03/30/19 04:00 98.7 87 18 127/67 (87) 03/30/19 00:00 97.8 78 18 119/78 (92) 03/29/19 22:07 Room Air 03/29/19 20:00 98.7 78 18 128/78 (95) I&O Intake and Output 03/29/19 03/30/19 19:00 07:00 Intake Total 600 ml Output Total 1300 ml 1000 ml Balance -700 ml -1000 ml Intake Oral 600 ml Output Urine Total 1300 ml 1000 ml # Voids 2 # Bowel Movements 1 Dressing: saturated Wound: other Drains: other Cardiovascular: RSR Respiratory: clear Abdomen: soft, present bowel sounds, other, non-distended Extremities: edema, no cyanosis Plan Problems: (1) Intractable pain Assessment & Plan: appreciate pain management input (2) Cellulitis (3) Abdominal wall cellulitis Assessment & Plan: surgical wound with cellulitis and some openings. still with abd wall pannus cellulitis afebrile leukocytosis Patient is becoming more difficult with pain management as he is insistent on IV medications specifically Dilaudid only. He does not want to be transition to oral medications at this time. He uses this is an excuse to not allow for wound care and does not assist with caring for his wounds. In evaluating his wounds at bedside they have a foul odor and some areas are open while others are intact. Patient states that he is willing for therapy but when therapists come to help patient he refuses to participate in physical therapy. Unfortunately becoming a very difficult case as patient states he is motivated to improve and recover but this is only what he tells me and is not how he acts when the teams come to help and assist him with recovery. Furthermore his pain management becoming difficult as he states that he wants an increase in IV pain medications and he only wants them IV and specifically Dilaudid. Will discuss with medical teams to ensure best possible care tates that he had a hold of his medical record he is very upset that we have stated that narcotics are delaying his healing process. I have explained patient in detail that this is actually very true and that his dependence on narcotics and potential addiction is what is withholding him from a true and good recovery. During a long conversation in discussing his narcotic use history and where he is today as compared to where he was prior and his motivations and how they have changed patient is admitted that he does have a narcotic dependency and he believes he may have had one for some time. I explained patient that we will not be able to harm him and that our goals are to improve him and weaning his narcotic use is the first step in doing this. Overall patient's wounds are difficult but they are improving. His narcotic you should be decreasing unless he is forming a worsening addiction which we cannot conceivably help with. Patient seemed upset but understanding at the end the conversation. patients wound improving with dakins foul odor improved cont with dressing changes. -IV abx -diet as tolerated recommend strict diet but does not adhere to plan packing and dressing to abd wounds TID and prn saturation wash wounds daily with Dakins d/c planning as patient wants out of hospital soon thank you will follow with Gt Mata Mar 30, 2019 18:43
--- NOTE | 2019-03-30 18:43 | NUR ---
CASE MANAGEMENT: REVIEW 03/30/2019 SI:INTRACTABLE PAIN. T 98.4 HR 72 RR 19 B/P 129/77 SATS 96% ON RA NO LABS TODAY IS: LASIX PO Q8H KEPPRA PO Q8H DOXYCYCLINE PO Q12H CYMBALTA PO Q12H NORVASC PO QD LEVAQUIN PO QD MED/SURG STATUS DCP: PATIENT TO BE DISCHARGED TO SNF ONCE MEDICALLY CLEARED.
--- NOTE | 2019-03-30 19:27 | NUR ---
HAND-OFF: Report given to Robson PERKINS RN.
--- NOTE | 2019-03-30 19:45 | NUR ---
NURSE NOTES: Received report for Forrest Cherry RN. Patient A&Ox4. On room air, no signs of distress or labored breathing. Bed in lowest position with call light in reach. Will continue with plan of care.
--- NOTE | 2019-03-31 00:20 | NUR ---
HAND-OFF: Report given to MICAELA Hyman.
--- NOTE | 2019-03-31 00:21 | NUR ---
NURSE NOTES: Received patient in no apparent distress. A&OX4. Pires cath noted, draining well by gravity, yellow urine noted. Dressing noted on abdomen, dry and intact. Bed in lowest position. Call light within reach. Will continue to monitor.
[2019-03-31] MEDS: HYDROmorphone 4mg tab ORAL PRN ×2 (00:43→06:14)
[2019-03-31] MEDS: Doxycycline Monohydrate 100mg ORAL SCH ×3 (00:43→21:56)
--- NOTE | 2019-03-31 07:26 | General Progress Note ---
Assessment/Plan Status: stable, progressing Assessment/Plan: Difficult situation. Patient is a high risk patient who underwent a necessary but high risk procedure and for the most part did well with the surgery. There are other extenuating circumstances that may be complicating his condition such as reliance on iv pain medication, poor eating habits that are exacerbated by friends who bring him food. At this time his wounds are stable and will progress to heal with wound care. The wounds are not significant enough to warrant acute level care and they do not need surgical intervention at this time. However his disposition is the main issue to be resolved. At this time he cannot be discharged home due to inability to get up and ambulate. Attempts to transfer to SNF leads to readmissions due to demands for IV pain meds. One possible solution, temporary as it may be, is to give him a single does of iv pain meds just prior to his PT session to enable him to get stronger so he can be discharged to home. Will discuss with team. Continue current dressing changes daily. Subjective Date patient seen: Mar 30, 2019 Time patient seen: 12:00 ROS Limited/Unobtainable: Yes Constitutional: Reports: no symptoms Allergies: Coded Allergies: ASPIRIN (Verified Allergy, Unknown, 07/14/18) KETOROLAC (Verified Allergy, Unknown, 07/14/18) PENICILLINS (Verified Allergy, Unknown, 12/23/18) tolerated Ancef on 08/2018 Subjective Patient is 2months s/p panniculectomy. He has had 2 areas of incision dehisence which are being treated with dressing changes. He continues to c/o pain but mainly in his shoulders, hips, and knees. He states the pain is the reason he needs IV pain medication and the reason why he is not doing PT. His wounds are stable. and improving. Objective Last 24 Hour Vital Signs Date Time Temp Pulse Resp B/P (MAP) Pulse Ox O2 Delivery O2 Flow Rate FiO2 03/30/19 21:00 Room Air 03/30/19 15:50 98.4 72 19 129/77 (94) 96 03/30/19 11:59 98.3 80 19 114/71 (85) 97 03/30/19 09:14 80 124/77 03/30/19 09:00 Room Air 03/30/19 08:00 98.3 80 18 124/77 (93) 99 Intake and Output 03/30/19 03/31/19 18:59 06:59 Intake Total 480 ml 1080 ml Output Total 1400 ml 1500 ml Balance -920 ml -420 ml Intake Oral 480 ml 1080 ml Output Urine Total 1400 ml 1500 ml Height (Feet): 6 Height (Inches): 0.00 Weight (Pounds): 450 General Appearance: no apparent distress, alert Skin: other - Right sided wound with granular base and no odor. No slough present at the base. Left lateral wound is superficial and granular. No purulent drainage and no evidence of cellulitis. Remaining incision is healing very well. Reggie Roberts MD Mar 31, 2019 07:26
--- NOTE | 2019-03-31 07:35 | NUR ---
HAND-OFF: Report given to Hal HINOJOSA.
[2019-03-31 08:00] VITALS: BP 107/75
--- NOTE | 2019-03-31 08:06 | NUR ---
NURSE NOTES: received report from MICAELA Hyman. patient in bed. alert. oriented. verbally responsive. no respiratory distress noted on room air. bed in the lowest position and locked. call light within reach, will continue to provide plan of care.
--- NOTE | 2019-03-31 08:38 | NUR ---
DISCHARGE PLANNING: NOTE [facility] IS NOT ACCEPTING. CLINICALS FAXED TO [facility] T:[phone] F:[phone] REFERRAL PROVIDED TO [facility]
[2019-03-31] MEDS: Dakin's 0.125% Soln (Quarter Strength) 16oz TOPIC SCH (09:00)
[2019-03-31] MEDS: Levofloxacin 750mg tab ORAL SCH (09:38)
[2019-03-31] MEDS: DULoxetine 30mg cap ORAL SCH (09:38)
--- NOTE | 2019-03-31 09:46 | NUR ---
NURSE NOTES: administered Dilaudid 2mg IVP prior PT therapy. IV on Rt hand 24g intact.
--- NOTE | 2019-03-31 10:12 | General Progress Note ---
Assessment/Plan Problem List: (1) Intractable pain ICD Codes: R52 - Pain, unspecified SNOMED: 27681041 (2) Cellulitis ICD Codes: L03.90 - Cellulitis, unspecified SNOMED: 964987901 (3) COPD (chronic obstructive pulmonary disease) ICD Codes: J44.9 - Chronic obstructive pulmonary disease, unspecified SNOMED: 84846949 (4) Morbid obesity ICD Codes: E66.01 - Morbid (severe) obesity due to excess calories SNOMED: 872373409 (5) Lumbar spondylosis ICD Codes: M47.816 - Spondylosis without myelopathy or radiculopathy, lumbar region SNOMED: 519664362 (6) Right heart failure ICD Codes: I50.810 - Right heart failure, unspecified SNOMED: 957598999 (7) ADALBERTO (obstructive sleep apnea) ICD Codes: G47.33 - Obstructive sleep apnea (adult) (pediatric) SNOMED: 57207214 (8) Abdominal pannus ICD Codes: E65 - Localized adiposity SNOMED: 4597272564339 (9) Seizures ICD Codes: R56.9 - Unspecified convulsions SNOMED: 10005315 (10) Cerebrovascular accident ICD Codes: I63.9 - Cerebral infarction, unspecified SNOMED: 350729887 (11) Peripheral edema ICD Codes: R60.9 - Edema, unspecified SNOMED: 626690299 (12) Abdominal wall cellulitis ICD Codes: L03.311 - Cellulitis of abdominal wall SNOMED: 37244949 (13) UTI (urinary tract infection) ICD Codes: N39.0 - Urinary tract infection, site not specified SNOMED: 81018587 (14) Uncontrolled seizures ICD Codes: R56.9 - Unspecified convulsions SNOMED: 23861158 Status: stable, progressing Assessment/Plan: pt diet wound care pain control cbc bmp am aru eval Subjective Constitutional: Reports: weakness Allergies: Coded Allergies: ASPIRIN (Verified Allergy, Unknown, 07/14/18) KETOROLAC (Verified Allergy, Unknown, 07/14/18) PENICILLINS (Verified Allergy, Unknown, 12/23/18) tolerated Ancef on 08/2018 All Systems: reviewed and negative except above Subjective sleepy calm Objective Last 24 Hour Vital Signs Date Time Temp Pulse Resp B/P (MAP) Pulse Ox O2 Delivery O2 Flow Rate FiO2 03/31/19 09:00 78 107/75 03/31/19 08:00 98.1 78 18 107/75 (86) 97 03/30/19 21:00 Room Air 03/30/19 15:50 98.4 72 19 129/77 (94) 96 03/30/19 11:59 98.3 80 19 114/71 (85) 97 Intake and Output 03/30/19 03/31/19 18:59 06:59 Intake Total 480 ml 1080 ml Output Total 1400 ml 1500 ml Balance -920 ml -420 ml Intake Oral 480 ml 1080 ml Output Urine Total 1400 ml 1500 ml Height (Feet): 6 Height (Inches): 0.00 Weight (Pounds): 450 General Appearance: lethargic EENT: normal ENT inspection Neck: normal alignment Cardiovascular: normal peripheral pulses, normal rate, regular rhythm Respiratory/Chest: chest wall non-tender, lungs clear, normal breath sounds Abdomen: normal bowel sounds, non tender, soft Extremities: normal inspection Edema: no edema noted Arm (L), no edema noted Arm (R), no edema noted Leg (L), no edema noted Leg (R), no edema noted Pedal (L), no edema noted Pedal (R), no edema noted Generalized Neurologic: responsive, motor weakness Skin: normal pigmentation, warm/dry Ernesto Nicole DO Mar 31, 2019 10:12
[2019-03-31 12:00] VITALS: BP 118/65
--- NOTE | 2019-03-31 13:26 | NUR ---
CASE MANAGEMENT: REVIEW 03/31/2019 SI:INTRACTABLE PAIN. T 98.4 HR 72 RR 19 B/P 129/77 SATS 96% ON RA NO LABS TODAY IS: LASIX PO Q8H KEPPRA PO Q8H DOXYCYCLINE PO Q12H CYMBALTA PO Q12H NORVASC PO QD LEVAQUIN PO QD MED/SURG STATUS DCP: PATIENT TO BE DISCHARGED TO SNF ONCE MEDICALLY CLEARED.
--- NOTE | 2019-03-31 13:40 | Pulmonology Progress Note ---
Assessment/Plan Problems: (1) Abdominal wall cellulitis (2) ADALBERTO (obstructive sleep apnea) (3) Status post panniculectomy (4) COPD (chronic obstructive pulmonary disease) (5) Seizures (6) Intractable pain (7) Cerebrovascular accident (8) Lumbar spondylosis (9) Morbid obesity Assessment/Plan wound care respiratory treatment check electrolytes add methadone prn Subjective ROS Limited/Unobtainable: No Interval Events: did PT after getting dilaudid IV Constitutional: Reports: no symptoms Allergies: Coded Allergies: ASPIRIN (Verified Allergy, Unknown, 07/14/18) KETOROLAC (Verified Allergy, Unknown, 07/14/18) PENICILLINS (Verified Allergy, Unknown, 12/23/18) tolerated Ancef on 08/2018 Objective Last 24 Hour Vital Signs Date Time Temp Pulse Resp B/P (MAP) Pulse Ox O2 Delivery O2 Flow Rate FiO2 03/31/19 12:00 97.8 82 18 118/65 (82) 98 03/31/19 09:00 78 107/75 03/31/19 09:00 Room Air 03/31/19 08:00 98.1 78 18 107/75 (86) 97 03/30/19 21:00 Room Air 03/30/19 15:50 98.4 72 19 129/77 (94) 96 Intake and Output 03/30/19 03/31/19 19:00 07:00 Intake Total 480 ml 1080 ml Output Total 1400 ml 1500 ml Balance -920 ml -420 ml Intake Oral 480 ml 1080 ml Output Urine Total 1400 ml 1500 ml Objective General Appearance: WD/WN HEENT: normocephalic, atraumatic Respiratory/Chest: chest wall non-tender, lungs clear Cardiovascular: normal peripheral pulses, normal rate Abdomen: normal bowel sounds, soft, non tender Genitourinary: normal external genitalia Extremities: no clubbing Skin: no rash, no ulcers, clean dressing in lower abdomen Neurologic/Psychiatric: finish cleaner II-XII grossly normal Current Medications Medications (Trade) Dose Ordered Sig/Luis Route PRN Reason Start Time Stop Time Status Last Admin Dose Admin Acetaminophen (Tylenol) 650 mg Q4H PRN ORAL Mild Pain/Temp > 100.5 03/18/19 04:30 04/17/19 04:29 Amlodipine Besylate (Norvasc) 5 mg DAILY ORAL 03/18/19 09:00 04/17/19 08:59 9/3/19 09:14 Calcium Carbonate (Tums) 1,000 mg Q4H PRN ORAL indigestion 03/25/19 10:30 04/24/19 10:29 03/25/19 11:15 Doxycycline Monohydrate (Doxycycline Monohydrate) 100 mg EVERY 12 HOURS ORAL 03/27/19 22:00 04/03/19 21:59 03/31/19 09:38 Duloxetine HCl (Cymbalta) 30 mg DAILY ORAL 03/18/19 09:00 04/17/19 08:59 03/31/19 09:38 Furosemide (Lasix) 10 mg EVERY 8 HOURS ORAL 03/18/19 06:00 04/17/19 05:59 03/31/19 06:13 Hydromorphone HCl (Dilaudid) 2 mg DAILY PRN IVP PRIOR TO PHYSICAL THERAPY 03/31/19 09:00 04/07/19 08:59 03/31/19 09:39 Hydromorphone HCl (Dilaudid) 4 mg Q4H PRN ORAL Severe Pain (Pain Scale 7-10) 03/28/19 15:00 04/04/19 14:59 03/31/19 06:14 Levetiracetam (Keppra) 1,000 mg EVERY 8 HOURS ORAL 03/18/19 06:00 04/17/19 05:59 03/31/19 06:13 Levofloxacin (Levaquin) 750 mg DAILY ORAL 03/28/19 09:00 04/04/19 08:59 03/31/19 09:38 Miscellaneous Medication (fentaNYL Destruction) 1 ea Q48H MISC 03/23/19 16:00 04/22/19 15:59 03/29/19 15:18 Naloxone HCl (Narcan) 0.1 mg PRN IV Sedation scale 3 or 4 03/18/19 04:30 Ondansetron HCl (Zofran) 4 mg Q4H PRN ORAL Nausea & Vomiting 03/25/19 10:30 04/24/19 10:29 03/26/19 17:04 Ondansetron HCl (Zofran) 4 mg Q6H PRN IVP Nausea & Vomiting 03/25/19 10:30 04/17/19 04:29 Polyethylene Glycol (Miralax) 17 gm DAILY PRN ORAL Constipation 03/18/19 04:30 04/17/19 04:29 Sodium Hypochlorite (Dakin's Quarter Strength) 1 applic DAILY TOPIC 03/23/19 15:00 04/22/19 14:59 03/31/19 09:00 Bill Dixon MD Mar 31, 2019 13:40
[2019-03-31] MEDS ORDERED: HYDROmorphone 4mg tab ORAL PRN (14:00)
--- NOTE | 2019-03-31 14:10 | NUR ---
NURSE NOTES: report given to Francisco Javier Toribio
--- NOTE | 2019-03-31 14:21 | NUR ---
NURSE NOTES: patient requested Dilaudid IV medication for pain upon discharge since will have long distance driving. notified Dr. ventura and received order of Dilaudid 2mg IVP once. order noted and carried out.
--- NOTE | 2019-03-31 14:25 | Surgery Progress Note ---
Surgery Progress Note Subjective Additional Comments patient states he is better ad moving more happy to be receiving IV dilaudid with physical therapy Objective Last 24 Hour Vital Signs Date Time Temp Pulse Resp B/P (MAP) Pulse Ox O2 Delivery O2 Flow Rate FiO2 03/31/19 12:00 97.8 82 18 118/65 (82) 98 03/31/19 09:00 78 107/75 03/31/19 09:00 Room Air 03/31/19 08:00 98.1 78 18 107/75 (86) 97 03/30/19 21:00 Room Air 03/30/19 15:50 98.4 72 19 129/77 (94) 96 I&O Intake and Output 03/30/19 03/31/19 19:00 07:00 Intake Total 480 ml 1080 ml Output Total 1400 ml 1500 ml Balance -920 ml -420 ml Intake Oral 480 ml 1080 ml Output Urine Total 1400 ml 1500 ml Dressing: saturated Wound: clean, other Drains: other Cardiovascular: RSR Respiratory: clear Abdomen: soft, non-tender, present bowel sounds Extremities: no tenderness, no cyanosis, other Plan Problems: (1) Intractable pain Assessment & Plan: appreciate pain management input (2) Cellulitis (3) Abdominal wall cellulitis Assessment & Plan: surgical wound with cellulitis and some openings. still with abd wall pannus cellulitis afebrile leukocytosis Patient is becoming more difficult with pain management as he is insistent on IV medications specifically Dilaudid only. He does not want to be transition to oral medications at this time. He uses this is an excuse to not allow for wound care and does not assist with caring for his wounds. In evaluating his wounds at bedside they have a foul odor and some areas are open while others are intact. Patient states that he is willing for therapy but when therapists come to help patient he refuses to participate in physical therapy. Unfortunately becoming a very difficult case as patient states he is motivated to improve and recover but this is only what he tells me and is not how he acts when the teams come to help and assist him with recovery. Furthermore his pain management becoming difficult as he states that he wants an increase in IV pain medications and he only wants them IV and specifically Dilaudid. Will discuss with medical teams to ensure best possible care tates that he had a hold of his medical record he is very upset that we have stated that narcotics are delaying his healing process. I have explained patient in detail that this is actually very true and that his dependence on narcotics and potential addiction is what is withholding him from a true and good recovery. During a long conversation in discussing his narcotic use history and where he is today as compared to where he was prior and his motivations and how they have changed patient is admitted that he does have a narcotic dependency and he believes he may have had one for some time. I explained patient that we will not be able to harm him and that our goals are to improve him and weaning his narcotic use is the first step in doing this. Overall patient's wounds are difficult but they are improving. His narcotic you should be decreasing unless he is forming a worsening addiction which we cannot conceivably help with. Patient seemed upset but understanding at the end the conversation. patients wound improving with dakins foul odor improved cont with dressing changes. -IV abx -diet as tolerated recommend strict diet but does not adhere to plan packing and dressing to abd wounds TID and prn saturation wash wounds daily with Dakins d/c planning as patient wants out of hospital soon thank you will follow with Gt Mata Mar 31, 2019 14:25
--- NOTE | 2019-03-31 14:52 | NUR ---
DISCHARGE DISPOSITION: PLEASE READ PATIENT TO BE DISCHARGED TO [facility] [address] T: [phone]>> CALL FOR REPORT [facility] ETA 1500 NO FAMILY TO CALL SKILLED
--- NOTE | 2019-03-31 15:02 | Infectious Diseases Prog Note ---
Assessment/Plan Assessment/Plan Assessment: Surgical site infection; improving -03/05 wound cx : S.aureus, diptheroids -03/04 wound cx MRSA (S tetracycline, bactrim, Vancomycin),K. pna (R amp; otherwise S) 02/01 SP Panniculectomy Afebrile Mild leukocytosis Recent hx of B/l Leg cellulitis and panniculitis 12/2018 - in the setting of chronic venous stasis, s/p Rx Recent seizure episode 11/2018 -had L side weakness and spasticity CVA HTN bipolar disorder w/ psychotic features tobacco abuse anxiety disorder chronic pain CHF seizure disorder COPD morbid obesity Dm2 HTN SNF resident Plan: -Continue PO Doxycycline #20(abx d #) and Levaquin #18 (abx d #) for SSI -03/17 SP DOxycycline #8, Levaquin #8 -03/10 SP IV Vancomycin #8, Ceftriaxone #5 -03/06 SP Cefepime # -02/08 SP IV Vancomycin # -02/04 SP Aztreonam #4 -/ SP Fluconazole #5 - 01/07/19 SP IV Dapto d# 14 - 01/06/19 S/P Levofloxacin #7 - 12/25/18 sp Bactrim #4 and IV Ancef #3 for cellulitis -f/u cx -Monitor CBC/CMP, temperatures -Sx f/u -wound care per surgical team -Patient very difficult to manage; refusing wound care dressings, examination, blood draws and oral antibiotics. Becoming angry and demanding IV pain medications. Subjective Allergies: Coded Allergies: ASPIRIN (Verified Allergy, Unknown, 07/14/18) KETOROLAC (Verified Allergy, Unknown, 07/14/18) PENICILLINS (Verified Allergy, Unknown, 12/23/18) tolerated Ancef on 08/2018 Subjective afebrile no recent lab Objective Vital Signs Last 24 Hour Vital Signs Date Time Temp Pulse Resp B/P (MAP) Pulse Ox O2 Delivery O2 Flow Rate FiO2 03/31/19 12:00 97.8 82 18 118/65 (82) 98 03/31/19 09:00 78 107/75 03/31/19 09:00 Room Air 03/31/19 08:00 98.1 78 18 107/75 (86) 97 03/30/19 21:00 Room Air 03/30/19 15:50 98.4 72 19 129/77 (94) 96 Height (Feet): 6 Height (Inches): 0.00 Weight (Pounds): 450 Objective General appearance: alert, cooperative, no distress, appears stated age Head: Normocephalic, without obvious abnormality, atraumatic Eyes: conjunctivae/corneas clear. PERRL, EOM's intact. Fundi benign Throat: Lips, mucosa, and tongue normal. Teeth and gums normal Neck: supple, symmetrical, trachea midline, no adenopathy, thyroid: not enlarged, symmetric, no tenderness/mass/nodules, no carotid bruit and no JVD Lungs: clear to auscultation bilaterally Heart: regular rate and rhythm, S1, S2 normal, no murmur, click, rub or gallop Abdomen: soft, non-tender. Bowel sounds normal. No masses, no organomegaly; surgical incision with some areas of opening and erythema Extremities: extremities normal, atraumatic, no cyanosis or edema Pulses: 2+ and symmetric Skin: Skin color, texture, turgor normal. No rashes or lesions Neurologic: Grossly normal Current Medications Medications (Trade) Dose Ordered Sig/Luis Route PRN Reason Start Time Stop Time Status Last Admin Dose Admin Acetaminophen (Tylenol) 650 mg Q4H PRN ORAL Mild Pain/Temp > 100.5 03/18/19 04:30 04/17/19 04:29 Amlodipine Besylate (Norvasc) 5 mg DAILY ORAL 03/18/19 09:00 04/17/19 08:59 03/30/19 09:14 Calcium Carbonate (Tums) 1,000 mg Q4H PRN ORAL indigestion 03/25/19 10:30 04/24/19 10:29 03/25/19 11:15 Doxycycline Monohydrate (Doxycycline Monohydrate) 100 mg EVERY 12 HOURS ORAL 03/27/19 22:00 04/03/19 21:59 03/31/19 09:38 Duloxetine HCl (Cymbalta) 30 mg DAILY ORAL 03/18/19 09:00 04/17/19 08:59 03/31/19 09:38 Fentanyl (Duragesic) 1 patch Q48H TDERMAL 03/31/19 16:00 04/07/19 15:59 Furosemide (Lasix) 10 mg EVERY 8 HOURS ORAL 03/18/19 06:00 04/17/19 05:59 03/31/19 06:13 Hydromorphone HCl (Dilaudid) 2 mg DAILY PRN IVP PRIOR TO PHYSICAL THERAPY 03/31/19 09:00 04/07/19 08:59 03/31/19 09:39 Hydromorphone HCl (Dilaudid) 2 mg ONCE IVP 03/31/19 14:30 03/31/19 16:00 03/31/19 14:54 Hydromorphone HCl (Dilaudid) 4 mg Q4H PRN ORAL MODERATE BREAKTHROUGH PAIN 03/31/19 14:00 04/04/19 14:59 Levetiracetam (Keppra) 1,000 mg EVERY 8 HOURS ORAL 03/18/19 06:00 04/17/19 05:59 03/31/19 14:05 Levofloxacin (Levaquin) 750 mg DAILY ORAL 03/28/19 09:00 04/04/19 08:59 03/31/19 09:38 Methadone HCl (Methadone HCl) 10 mg Q6H PRN ORAL SEVERE BREAKTHROUGH PAIN 03/31/19 13:45 04/07/19 13:44 Miscellaneous Medication (fentaNYL Destruction) 1 ea Q48H MISC 03/23/19 16:00 04/22/19 15:59 03/29/19 15:18 Naloxone HCl (Narcan) 0.1 mg PRN IV Sedation scale 3 or 4 03/18/19 04:30 Ondansetron HCl (Zofran) 4 mg Q4H PRN ORAL Nausea & Vomiting 03/25/19 10:30 04/24/19 10:29 03/26/19 17:04 Ondansetron HCl (Zofran) 4 mg Q6H PRN IVP Nausea & Vomiting 03/25/19 10:30 04/17/19 04:29 Polyethylene Glycol (Miralax) 17 gm DAILY PRN ORAL Constipation 03/18/19 04:30 04/17/19 04:29 Sodium Hypochlorite (Dakin's Quarter Strength) 1 applic DAILY TOPIC 03/23/19 15:00 04/22/19 14:59 03/31/19 09:00 Alexa Patterson M.D. Mar 31, 2019 15:01
[2019-03-31 16:00] VITALS: BP 105/66
[2019-03-31] MEDS: fentaNYL Destruction MISC SCH (16:00)
--- NOTE | 2019-03-31 16:15 | Progress Note ---
DATE: 03/31/2019 SUBJECTIVE: This is a 53-year-old male patient, who is admitted to the hospital at [facility], still has some intractable pain and also high levels of agitation, depression, anxiety, and mood lability. That is why, his attending physician has requested daily psychiatric consultation. MENTAL STATUS EXAMINATION: A 53-year-old male. Appearance is disheveled. Attitude, irritable and agitated. Affect, guarded and restricted. Intellect poor. Mood, depressed and anxious. Motor activity, psychomotor agitation. Attention span is poor. Orientation x2. Speech is pressured. Thought process, disorganized and illogical. Insight and judgment is poor. 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 PLAN: Treat the patient with psychotropic medication regimen consisting of Cymbalta 30 mg daily. Provide him with 20 minutes of reality-based supportive psychotherapy. I encouraged him to interact appropriately with staff and other patients. Chart reviewed. Discussed with staff. Seen and assessed at bedside. The patient was continued to be followed by Psychiatry throughout the hospital course. A 20 minutes of cognitive behavioral therapy to help him identify his automatic negative thoughts and convert those negative thoughts to more positive thoughts to reduce depression, anxiety, and mood lability. Laney Mcghee M.D. DR: ENRIQUE JOB#: [id number] CC:
--- NOTE | 2019-03-31 16:44 | NUR ---
NURSE NOTES: [facility] persons here for [facility]er patient with regular gurney. patient needs bariatric gurney. ambulance person called dispatch and talked to vivian [phone]. bariatric gurney will be provided @2029 for discharging
--- NOTE | 2019-03-31 19:34 | NUR ---
HAND-OFF: Report given to MICAELA Diane.
--- NOTE | 2019-03-31 19:57 | NUR ---
NURSE NOTES: Pt is in bed, awake and alert. No acute distress noted. Pt has a discharge order to transfer to SNF [facility]. Awaiting for bariatric gurney ETA 2029. Wound dressing dry and intact. Bed locked low in position, side rails up and call light within reach. Bed alarm ON. Pt instructed to call for assistance before trying to get out of bed. Pt will be monitored.
[2019-03-31 20:00] VITALS: BP 138/78
--- NOTE | 2019-03-31 23:35 | NUR ---
NURSE NOTES: Pt is discharged to [facility] via [facility] on a bariatric gurney. During discharge patient is awake, alert and verbal. Vitas stable. Discharge instructions and discharge packet sent with patient. Pt's table fan was sent with patient. IV cath and ID band removed. Pt went with [facility] cath. SNF was called and informed that patient was going there. Report was given during last shift.
--- NOTE | 2019-04-01 09:06 | Discharge Summary ---
Discharge Summary Discharge Summary _ DATE OF ADMISSION: 03/18/2019 DATE OF DISCHARGE: 03/31/2019 DISCHARGED BY: Dr. Nicole REASON FOR ADMISSION: 53 years old male with past medical history of CVA, hypertension, CHF, COPD, bipolar disorder with psychotic features, seizure disorder, morbid obesity , tobacco abuse, anxiety disorder , status post panniculectomy 02/01 with recent admission from 03/03 till 03/16 for surgical site infection ( improved with antibiotic ), came back to emergency department complaining, that SNF could not manage his wound care and pain control. Patient was not compliant with the diet and recommendation for weight loss, and only wanted IV pain medication. He denied vomiting and diarrhea. He denied fever and chills. Upon evaluation vital signs were stable. Laboratory work-up revealed mild leukocytosis WBC 11, hemoglobin 10.5, hematocrit 32.9 , platelet count 416. Stable electrolytes and renal parameters. Glucose 95. BUN 15 creatinine 0.9. Patient subsequently admitted for intractable pain and further management. CONSULTANTS: pulmonary Dr. Dixon ID specialist Dr. Patterson surgery Dr. Fernandez plastic surgery Dr. Roberts pain specialist Dr. Magaña psychiatrist Dr. Mcghee [facility] COURSE: Patient admitted to medical surgical floor. Patient noted to have a surgical site infection, which was improving with antibiotics. Patient remained afebrile with mild leukocytosis. Patient was on doxycycline to complete the course and Levaquin. Mild leukocytosis resolved. Infectious disease specialist recommended complete doxycycline and Levaquin for total of 28 days for surgical site infection. Wound care further provided as per surgeon recommendation. Continue wound care at the facility. Per surgeon , wound care was challenging, but wounds were improving with appropriate treatment. Supplemental oxygen provided as needed to keep pulse oximetry above 92%. Pulmonary toilet provided as needed. BiPAP provided at night. Patient was encouraged to comply with the diet. Patient was counseled on smoking cessation. Patient declined nicotine patch. Pain management was addressed as per pain specialist recommendation. Bowel regimen instituted. Seizure precaution maintained. Keppra continued. No evidence of seizure activity while in the hospital. Blood pressure was managed with calcium channel joe and Lasix, and remained stable. Patient was working with physical therapist. Physical therapy sessions were provided after pain was controlled . Psychiatrist followed. Per psychiatrist , patient had major depressive disorder , mild, recurrent without psychotic features. Psychiatric medication regimen optimized as per psychiatrist. Cognitive behavioral therapy provided. Pain medication changed to oral upon discharge. Patient clinically stabilized and was ready for discharge to long-term facility for combination of care. Patient clinically stabilized. 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 DISCHARGE INSTRUCTIONS: [Patient was discharged to the long-term facility. Follow up with medical doctor at the facility. I have been assigned to dictate discharge summary for this account. I was not involved in the patient's management. Kiera Vivar NP Apr 01, 2019 09:06
--- NOTE | 2019-04-02 03:15 | Progress Note ---
DATE: 03/31/2019 NOTE: POOR AUDIO PSYCHOTHERAPY CONSULTATION PROGRESS NOTE CONSULTING PHYSICIAN: Liu Jackman PsyD. TREATING ATTENDING: Ernesto Nicole D.O. SUBJECTIVE: The patient is a 53-year-old male patient . This patient has a history of depression and anxiety. The patient today is feeling anxious and restless. He continues to remain in pain. He was complaining of physical pain and stress. He states that he has been constantly asking for more pain medications. The patient has also been anxious, restless, irritable, and has poor frustration tolerance. I ASSESSED THIS PATIENT. PROVIDED THE PATIENT WITH: Supportive psychotherapy, which would provide the patient provide the patient with emotional support. Cognitive behavioral therapy, which is focused on techniques to assist this individual in giving with emotional lability positive coping skills reducing anxiety and mood lability. Plan is to maintain medication compliance to assist with positive coping skills and stabilizing the thoughts and behavior. Psychotherapy was provided to this patient, 20 minutes. This clinician has reviewed the patient's chart. Discussed treatment with treatment team. Liu Jackamn PsyD. DR: Ozzy JOB#: [id number] CC:
== END 2019-03-31 23:25 | DRG 603 ==
LOC: EDBD 22:27 → EMR 23:00 → EDBEDREQ 23:56 → 4E 03-18 01:08 → EDBEDREQ 03-18 01:27 → 4E 03-18 02:00
DX: L03.818 Cellulitis of other sites (principal); N39.0 Urinary tract infection, site not specified; F33.0 Major depressive disorder, recurrent, mild; E87.1 Hypo-osmolality and hyponatremia; Z68.44 Body mass index [BMI] 60.0-69.9, adult; R10.9 Unspecified abdominal pain; E66.01 Morbid (severe) obesity due to excess calories; M43.06 Spondylolysis, lumbar region; J44.9 Chronic obstructive pulmonary disease, unspecified; G47.33 Obstructive sleep apnea (adult) (pediatric); G89.4 Chronic pain syndrome; G40.909 Epilepsy, unspecified, not intractable, without status epilepticus; Z86.73 Personal history of transient ischemic attack (TIA), and cerebral infarction without residual deficits; F17.200 Nicotine dependence, unspecified, uncomplicated; Z88.6 Allergy status to analgesic agent; Z88.0 Allergy status to penicillin; Z88.8 Allergy status to other drugs, medicaments and biological substances; M51.16 Intervertebral disc disorders with radiculopathy, lumbar region; Z98.890 Other specified postprocedural states; I11.0 Hypertensive heart disease with heart failure; I50.810 Right heart failure, unspecified; E65 Localized adiposity; Z86.14 Personal history of Methicillin resistant Staphylococcus aureus infection
CPT/HCPCS: 36415; 80048; 80299; 85025; 87081; 96374; 99285; J2405